=== PATIENT | male | born 1975 | race Caucasian/White ===

== ENCOUNTER 2017-01-07 18:14 | Emergency (ER) | payer OTHER ==
[~2017-01-07] VITALS: Ht 180.3 cm; Wt 99.3 kg
[2017-01-07 18:14] VITALS: TEMP 36.8; Ht 180.3 cm; Wt 99.3 kg
[~2017-01-07 18:14] MED LIST: PANT40TA PO; PARO1TAB27 PO; TOPI100T20 PO; TRAM-10 PO
--- NOTE | 2017-01-07 18:45 | EMERGENCY ROOM VISIT NOTE ---
History Report prepared by Ester: Wale Whitehead Under the Supervision of: Dr. Kareem Mchugh M.D. First contact with patient: 18:19 Chief Complaint: ALCOHOL OVERDOSE Stated Complaint: ALCOHOL History of Present Illness The patient is a 41 year old male who presents to the Emergency Room with an acute alcohol overdose that started earlier today. The patient reportedly showed up to work today and appeared highly intoxicated. The patient became belligerent. Police were called, and he was brought to the ED. The patient is not sure what happened to his face to cause bleeding. Per EMS, the patient fell and hit his face on the concrete when they were still at [employer] where he works. The patient currently complains of a headache. The patient takes Protonix. The patient is not treated for hypertension, hyperlipidemia, or diabetes. He is treated for depression and anxiety. The patient was on Warfarin approximately one month ago for a DVT. The patient uses chewing tobacco. The patient believes that his tetanus shot has been within the past 10 years. He denies daily alcohol use. Per EMS, there were empty vodka bottles in the patient 's car. Source of History: patient, EMS Onset: earlier today Position: other (global) Quality: other (alcohol overdose) Timing: other (acute) Associated Symptoms: + headache Review of Systems See HPI for pertinent positives & negatives. A total of 10 systems reviewed and were otherwise negative. Past Medical & Surgical Medical Problems: (1) Alcohol abuse (2) Alcohol intoxication (3) Renae's esophagus (4) Depression (5) Depression (6) DM type 2 (diabetes mellitus, type 2) (7) Gastroesophageal reflux disease (8) H/O acute pancreatitis (9) History of substance abuse (10) Intentional drug overdose (11) Lumbar degenerative disc disease (12) Mood disorder (13) Mood disorder (14) Panic disorder (15) Pulmonary embolism (16) Suicidal ideation (17) Suicidal ideation (18) Suicide attempt Surgical Problems: (1) H/O esophagogastroduodenoscopy (2) H/o lumbar fusion (3) History of appendectomy (4) History of cholecystectomy (5) Hx of appendectomy (6) Insertion of implantable venous access port Family History Depression FATHER FH: alcohol abuse FATHER FH: cancer FH: heart disease FH: manic depression AUNT Social History Smoking Status: Never Smoker Alcohol Use: occasionally Drug Use: other Marital Status: Housing Status: lives with family Occupation Status: unemployed Current/Historical Medications Scheduled Pantoprazole (Protonix), 40 MG PO DAILY Paroxetine (Paxil), 20 MG PO DAILY Scheduled PRN Tramadol (Ultram), 50 MG PO DAILY PRN for Pain Allergies Coded Allergies: No Known Allergies (Unverified , 07/04/16) Physical Exam Vital Signs Date Time Temp Pulse Resp B/P (MAP) Pulse Ox O2 Delivery O2 Flow Rate FiO2 01/07/17 22:08 88 18 129/85 96 Room Air 01/07/17 20:35 93 18 126/88 98 Room Air 01/07/17 20:31 95 Room Air 01/07/17 19:51 103 01/07/17 19:48 104 18 114/57 94 Room Air 01/07/17 18:14 36.8 121 18 108/81 98 Room Air Physical Exam GENERAL: Patient is in no acute distress. HEENT: Abrasion to the mid upper lip, all teeth seem stable and intact, no laceration, no evidence of facial bony stepoff, moist mucous membranes, chew tobacco present in mouth. NECK: No stridor, no adenopathy, no meningismus, trachea is midline, no posterior C-spine tenderness or obvious stepoff. LUNGS: Clear to auscultation bilaterally, no wheeze, no rhonchi, breath sounds equal. HEART: Tachycardic with a regular rhythm, no murmurs. ABDOMEN: Soft, nontender, bowel sounds positive, no hernias, no peritonitis. EXTREMITIES: Abrasion to the right dorsal hand along the ulnar aspect, this area is tender, no gross deformity, no evidence for trauma to other three extremities. NEUROLOGIC: Slight slur to speech consistent with intoxication, no focal motor deficits, awake and alert. SKIN: No rash, no jaundice, no diaphoresis. Medical Decision & Procedures ER Provider Diagnostic Interpretation: X-ray results as stated below per interpretation by me and the radiologist: Radiology results as stated below per my review and radiologist interpretation: RIGHT HAND 3 VIEWS CLINICAL HISTORY: Fall. Right hand injury. Intoxication. FINDINGS: 3 views of the right hand are obtained. No prior studies are available for comparison at the time of dictation. The skeletal structures are well mineralized. No fracture is seen. The joint spaces of the hand are well-maintained. The overlying soft tissues are within normal limits. IMPRESSION: Unremarkable radiographic assessment of the right hand. Electronically signed by: Kareem Rivas M.D. 01/07/2017 7:13 PM Dictated Date/Time: 01/07/2017 7:[address] SCAN OF THE CERVICAL SPINE CLINICAL HISTORY: Fall. Intoxication. COMPARISON STUDY: CT scan of cervical spine dated 12/28/2011. TECHNIQUE: CT scan of the cervical spine is performed from the skull base to the upper thoracic spine. Images are reviewed in the axial, sagittal, and coronal planes. IV contrast was not administered for this examination. CT DOSE: Reported separately under the concurrently performed CT scan of the brain. FINDINGS: Skeletal structures: The skeletal structures are well mineralized. There is no evidence of fracture or subluxation involving the cervical spine. Vertebral body height and alignment are maintained. There is straightening of the cervical lordosis. The odontoid process and lateral masses are intact. The atlantoaxial articulation is preserved noting minimal productive degenerative change. The spinous processes appear intact. Mild facet arthropathy is seen in the mid to lower cervical region. Intervertebral discs: The disc spaces are well maintained. Central canal: Small posterior disc osteophyte complexes at C4-C5 and C5-C6 may contribute to minimal acquired compromise of the central canal. Soft tissues: The prevertebral and paraspinous soft tissues are within normal limits. Small calcified tonsilliths are incidentally noted. Calvarium: The visualized calvarium at the skull base appears intact. Brain parenchyma: Partially visualized brain parenchyma the skull base is within normal limits. Sinuses and mastoids: Mild to moderate mucosal thickening is seen within the maxillary antra. Mucosal thickening is also seen within the ethmoid and sphenoid sinuses. The mastoid air cells are well pneumatized. Lung apices: Clear as visualized. IMPRESSION: There is no evidence of fracture or subluxation involving the cervical spine. Electronically signed by: Kareem Rivas M.D. 01/07/2017 7:43 PM Dictated Date/Time: 01/07/2017 7:[address] SCAN OF THE BRAIN WITHOUT IV CONTRAST CLINICAL HISTORY: Fall. Intoxication. COMPARISON STUDY: CT of the brain dated 03/22/2015. TECHNIQUE: Unenhanced axial CT scan of the brain is performed from the vertex to the skull base. Automated dose control exposure was utilized. CT DOSE: 1118.70 mGy.cm FINDINGS: Brain parenchyma: The brain parenchyma is normal in appearance. There is no hemorrhage, mass effect, or evidence of acute territorial ischemia by CT criteria. Camacho-white matter is preserved. No extra-axial fluid collection is seen. Ventricles, sulci, cisterns: Normal in configuration. Intracranial vasculature: The visualized intracranial vasculature at the skull base is normal in appearance. Calvarium: There is no depressed calvarial fracture. Sinuses and mastoids: Mild to moderate mucosal thickening is seen within the maxillary antra and ethmoid sinuses. Mild mucosal thickening is present within the right sphenoid sinus. The mastoid air cells are well pneumatized. Orbits: The bony orbits are grossly intact. IMPRESSION: No acute intracranial abnormality. Electronically signed by: Kareem Rivas M.D. 01/07/2017 7:36 PM Dictated Date/Time: 01/07/2017 7:34 PM Laboratory Results 01/07/17 20:22 Red Blood Count 4.87, Mean Corpuscular Volume 92.2, Mean Corpuscular Hemoglobin 33.7, Mean Corpuscular Hemoglobin Concent 36.5, Mean Platelet Volume 9.3, Neutrophils (%) (Auto) 62.5, Lymphocytes (%) (Auto) 26.7, Monocytes (%) (Auto) 5.8, Eosinophils (%) (Auto) 4.1, Basophils (%) (Auto) 0.7, Neutrophils # (Auto) 3.66, Lymphocytes # (Auto) 1.56, Monocytes # (Auto) 0.34, Eosinophils # (Auto) 0.24, Basophils # (Auto) 0.04 01/07/17 18:56 Test 01/07/17 18:56 01/07/17 20:22 Anion Gap 11.0 mmol/L (3-11) Est Creatinine Clear Calc Drug Dose 104.0 ml/min Estimated GFR () 94.8 Estimated GFR (Non- 81.8 BUN/Creatinine Ratio 6.8 (10-20) Calcium Level 8.6 mg/dl (8.5-10.1) Total Bilirubin 0.5 mg/dl (0.2-1) Direct Bilirubin mg/dl (0-0.2) Aspartate Amino Transf (AST/SGOT) U/L (15-37) Alanine Aminotransferase (ALT/SGPT) 45 U/L (12-78) Alkaline Phosphatase 83 U/L (45-117) Total Protein 7.6 gm/dl (6.4-8.2) Albumin 3.4 gm/dl (3.4-5.0) Lipase 96 U/L (73-393) Ethyl Alcohol mg/dL 337.0 mg/dl (0-3) White Blood Count 5.85 K/uL (4.8-10.8) Red Blood Count 4.87 M/uL (4.7-6.1) Hemoglobin 16.4 g/dL (14.0-18.0) Hematocrit 44.9 % (42-52) Mean Corpuscular Volume 92.2 fL (80-100) Mean Corpuscular Hemoglobin 33.7 pg (25-34) Mean Corpuscular Hemoglobin Concent 36.5 g/dl (32-36) Platelet Count 170 K/uL (130-400) Mean Platelet Volume 9.3 fL (7.4-10.4) Neutrophils (%) (Auto) 62.5 % Lymphocytes (%) (Auto) 26.7 % Monocytes (%) (Auto) 5.8 % Eosinophils (%) (Auto) 4.1 % Basophils (%) (Auto) 0.7 % Neutrophils # (Auto) 3.66 K/uL (1.4-6.5) Lymphocytes # (Auto) 1.56 K/uL (1.2-3.4) Monocytes # (Auto) 0.34 K/uL (0.11-0.59) Eosinophils # (Auto) 0.24 K/uL (0-0.5) Basophils # (Auto) 0.04 K/uL (0-0.2) RDW Standard Deviation 40.9 fL (36.4-46.3) RDW Coefficient of Variation 12.1 % (11.5-14.5) Immature Granulocyte % (Auto) 0.2 % Immature Granulocyte # (Auto) 0.01 K/uL (0.00-0.02) Laboratory results reviewed by me. Medications Administered Medications (Trade) Dose Ordered Sig/Carmita Route Start Time Stop Time Status Last Admin Dose Admin Sodium Chloride 500 ml @ 999 mls/hr Q31M STAT IV 01/07/17 20:03 01/07/17 20:33 DC 01/07/17 20:03 999 MLS/HR Sodium Chloride 1,000 ml @ 200 mls/hr Q5H STAT IV 01/07/17 20:03 01/07/17 22:43 DC 01/07/17 20:34 200 MLS/HR Acetaminophen (Tylenol Tab) 1,000 mg NOW STAT PO 01/07/17 20:52 01/07/17 20:53 DC 01/07/17 20:56 1,000 MG Al Hydroxide/Mg Hydroxide (Maalox Susp) 30 ml NOW STAT PO 01/07/17 20:58 01/07/17 20:59 DC 01/07/17 21:05 30 ML Ranitidine HCl (zANTac TAB) 150 mg NOW STAT PO 01/07/17 20:58 01/07/17 20:59 DC 01/07/17 21:05 150 MG ED Course 1919: The patient was evaluated in room C12b. A complete history and physical exam was performed. 2002: NSS 1000 ml @ 200 mls/hr, NSS 500 ml @ 999 mls/hr. 2051: Tylenol 1000 mg PO. 2056: The patient is feeling okay. He will call for a ride home. He notes burning in his stomach consistent with heart burn. 2057: Zantac 150 mg PO, Maalox 30 ml PO. 2146: The patient has found a sober ride. He will be discharged. Medical Decision Differential diagnosis includes facial, C-spine or skull fracture; intracranial bleeding, extremity fracture, alcohol abuse, diabetes, combative behavior. There is no leukocytosis or concerning anemia. No significant electrolyte abnormality or kidney failure. There was no hepatitis or pancreatitis. Brain CT shows no acute bleed or mass effect. C-spine CT shows no acute fracture. By exam, there was no evidence for dental, or for facial fracture. He did have an abrasion to his upper lip. Films of the right hand do not show any evidence for fracture. Alcohol level was elevated at 337. The patient received IV saline, oral Tylenol, oral Zantac and oral Maalox. He received the Zantac and Maalox for stomach upset-he does have a history of heartburn and this discomfort feels similar.. He is doing well. His vital signs have improved since arrival. The patient is in no danger of losing his airway. He is awake and talking, he is cooperative. He was able to contact a friend, he is being discharged. He was told to avoid alcohol in excess. He will watch for any signs of infection over his scrapes and abrasions. Ice for swelling was suggested. Tylenol for pain. Medication Reconciliation: I attest that I have personally reviewed the patient' s current medication list. Blood Pressure Screening: Patient was found to have normal blood pressure on screening and does not require follow-up. Impression Primary Impression: Facial trauma Additional Impressions: Alcohol abuse Contusion of right hand Combative behavior Scribe Attestation The scribe's documentation has been prepared under my direction and personally reviewed by me in its entirety. I confirm that the note above accurately reflects all work, treatment, procedures, and medical decision making performed by me. Departure Information Dispostion Home / Self-Care Referrals Dhiraj Myers D.O. (PCP) Forms HOME CARE DOCUMENTATION FORM, IMPORTANT VISIT INFORMATION Patient Instructions My [facility] Additional Instructions reflux meds for your stomach do not use alcohol in excess watch for infection--redness, drainage or fever tylenol for pain ice to the sore areas--your hand for example lab testing and imaging of the brain and neck were ok today return if worsening Problem Qualifiers
--- NOTE | 2017-01-07 19:15 | DIAGNOSTIC IMAGING REPORT ---
RIGHT HAND 3 VIEWS CLINICAL HISTORY: Fall. Right hand injury. Intoxication. FINDINGS: 3 views of the right hand are obtained. No prior studies are available for comparison at the time of dictation. The skeletal structures are well mineralized. No fracture is seen. The joint spaces of the hand are well-maintained. The overlying soft tissues are within normal limits. IMPRESSION: Unremarkable radiographic assessment of the right hand. Electronically signed by: Kareem Rivas M.D. 01/07/2017 7:13 PM Dictated Date/Time: 01/07/2017 7:12 PM
[2017-01-07 19:35] LABS: BLOOD UREA NITROGEN 8 mg/dl (7-18); BUN/CREATININE RATIO 6.8 (10-20); CALCIUM 8.6 mg/dl (8.5-10.1); CARBON DIOXIDE 23 mmol/L (21-32); CHLORIDE 108 mmol/L (98-107); GLUCOSE 171 mg/dl (70-99); SODIUM 142 mmol/L (136-145)
--- NOTE | 2017-01-07 19:37 | DIAGNOSTIC IMAGING REPORT ---
CT SCAN OF THE BRAIN WITHOUT IV CONTRAST CLINICAL HISTORY: Fall. Intoxication. COMPARISON STUDY: CT of the brain dated 03/22/2015. TECHNIQUE: Unenhanced axial CT scan of the brain is performed from the vertex to the skull base. Automated dose control exposure was utilized. CT DOSE: 1118.70 mGy.cm FINDINGS: Brain parenchyma: The brain parenchyma is normal in appearance. There is no hemorrhage, mass effect, or evidence of acute territorial ischemia by CT criteria. Camacho-white matter is preserved. No extra-axial fluid collection is seen. Ventricles, sulci, cisterns: Normal in configuration. Intracranial vasculature: The visualized intracranial vasculature at the skull base is normal in appearance. Calvarium: There is no depressed calvarial fracture. Sinuses and mastoids: Mild to moderate mucosal thickening is seen within the maxillary antra and ethmoid sinuses. Mild mucosal thickening is present within the right sphenoid sinus. The mastoid air cells are well pneumatized. Orbits: The bony orbits are grossly intact. IMPRESSION: No acute intracranial abnormality. Electronically signed by: Kareem Rivas M.D. 01/07/2017 7:36 PM Dictated Date/Time: 01/07/2017 7:34 PM
--- NOTE | 2017-01-07 19:44 | DIAGNOSTIC IMAGING REPORT ---
CT SCAN OF THE CERVICAL SPINE CLINICAL HISTORY: Fall. Intoxication. COMPARISON STUDY: CT scan of cervical spine dated 12/28/2011. TECHNIQUE: CT scan of the cervical spine is performed from the skull base to the upper thoracic spine. Images are reviewed in the axial, sagittal, and coronal planes. IV contrast was not administered for this examination. CT DOSE: Reported separately under the concurrently performed CT scan of the brain. FINDINGS: Skeletal structures: The skeletal structures are well mineralized. There is no evidence of fracture or subluxation involving the cervical spine. Vertebral body height and alignment are maintained. There is straightening of the cervical lordosis. The odontoid process and lateral masses are intact. The atlantoaxial articulation is preserved noting minimal productive degenerative change. The spinous processes appear intact. Mild facet arthropathy is seen in the mid to lower cervical region. Intervertebral discs: The disc spaces are well maintained. Central canal: Small posterior disc osteophyte complexes at C4-C5 and C5-C6 may contribute to minimal acquired compromise of the central canal. Soft tissues: The prevertebral and paraspinous soft tissues are within normal limits. Small calcified tonsilliths are incidentally noted. Calvarium: The visualized calvarium at the skull base appears intact. Brain parenchyma: Partially visualized brain parenchyma the skull base is within normal limits. Sinuses and mastoids: Mild to moderate mucosal thickening is seen within the maxillary antra. Mucosal thickening is also seen within the ethmoid and sphenoid sinuses. The mastoid air cells are well pneumatized. Lung apices: Clear as visualized. IMPRESSION: There is no evidence of fracture or subluxation involving the cervical spine. Electronically signed by: Kareem Rivas M.D. 01/07/2017 7:43 PM Dictated Date/Time: 01/07/2017 7:33 PM
[2017-01-07] MEDS ORDERED: SODIUM CHLORIDE 0.9% 500ML 500 ML IV STA (20:03)
[2017-01-07] MEDS ORDERED: SODIUM CHLORIDE 0.9% 1000ML 1,000 ML IV STA (20:03)
[2017-01-07 20:30] LABS: BASO % 0.7 %; BASO ABS # 0.04 K/uL (0-0.2); COMPLETE YES; EOS % 4.1 %; HEMATOCRIT 44.9 % (42-52); IG% 0.2 %; LYMPH % 26.7 %; LYMPH ABS # 1.56 K/uL (1.2-3.4); MEAN CELL VOLUME 92.2 fL (80-100); MEAN CORPUSCULAR HEMOGLOBIN 33.7 pg (25-34); MEAN CORPUSCULAR HGB CONC 36.5 g/dl (32-36); MEAN PLATELET VOLUME 9.3 fL (7.4-10.4); MONO % 5.8 %; NEUT % 62.5 %; PLATELET COUNT 170 K/uL (130-400); RED BLOOD COUNT 4.87 M/uL (4.7-6.1); WHITE BLOOD COUNT 5.85 K/uL (4.8-10.8)
[2017-01-07 20:31] VITALS: O2SAT 95
[2017-01-07 20:39] LABS: ALKALINE PHOSPHATASE 83 U/L (45-117); ALT/SGPT 45 U/L (12-78)
[2017-01-07] MEDS ORDERED: ACETAMINOPHEN 500 MG TAB PO STA (20:52)
[2017-01-07] MEDS ORDERED: RANITIDINE HCL 150 MG TAB PO STA (20:58)
[2017-01-07] MEDS ORDERED: ALUMINUM/MAGNESIUM SUSP 30 ML UDC PO STA (20:58)
[2017-01-07 22:08] VITALS: BP 129/85; PULSE 88; O2SAT 96
[2017-01-27] MEDS ORDERED: MULTTAB PO (14:00)
[2017-01-27] MEDS ORDERED: THM100 PO (14:00)
[2017-01-27] MEDS ORDERED: CRFUDL PO (14:00)
== END 2017-01-07 22:10 | disposition home or self-care (01) ==
LOC: EDBD 18:14 → C.EDC 18:15
DX: S09.93XA Unspecified injury of face, initial encounter (principal); F10.10 Alcohol abuse, uncomplicated; S60.221A Contusion of right hand, initial encounter; R46.2 Strange and inexplicable behavior; X58.XXXA Exposure to other specified factors, initial encounter; K22.70 Barrett's esophagus without dysplasia; F33.41 Major depressive disorder, recurrent, in partial remission; E11.9 Type 2 diabetes mellitus without complications; K21.9 Gastro-esophageal reflux disease without esophagitis; Z82.49 Family history of ischemic heart disease and other diseases of the circulatory system

== ENCOUNTER 2017-01-15 12:11 | Inpatient (IN) | payer OTHER ==
[~2017-01-15] VITALS: Ht 182.9 cm; Wt 103.4 kg
[~2017-01-15 12:11] MED LIST changes: -TOPI100T20 PO
[2017-01-15] MEDS ORDERED: FENTANYL CITRATE INJ 50 MCG/1 ML 2 ML VIAL IV STA ×2 (12:28→13:12)
[2017-01-15] MEDS ORDERED: LORAZEPAM 2 MG/ML 1 ML VIAL IV STA (12:28)
[2017-01-15] MEDS ORDERED: SODIUM CHLORIDE 0.9% 1000ML 2,000 ML IV STA (12:28)
[2017-01-15] MEDS ORDERED: MULTI-VITAMIN INFUSION INJ 10 ML, THIAMINE HCL INJ 100 MG, FoLIC ACID INJ 1 MG in SODIU... IV ONE (12:30)
[2017-01-15 12:49] LABS: BASO % 0.4 %; BASO ABS # 0.03 K/uL (0-0.2); COMPLETE YES; EOS % 2.1 %; HEMATOCRIT 49.3 % (42-52); IG% 0.1 %; LYMPH % 11.6 %; LYMPH ABS # 0.81 K/uL (1.2-3.4); MEAN CELL VOLUME 92.1 fL (80-100); MEAN CORPUSCULAR HEMOGLOBIN 32.3 pg (25-34); MEAN CORPUSCULAR HGB CONC 35.1 g/dl (32-36); MONO % 9.2 %; NEUT % 76.6 %; PLATELET COUNT 159 K/uL (130-400); RED BLOOD COUNT 5.35 M/uL (4.7-6.1); WHITE BLOOD COUNT 6.99 K/uL (4.8-10.8)
[2017-01-15 13:06] LABS: BUN/CREATININE RATIO 8.2 (10-20); CALCIUM 9.2 mg/dl (8.5-10.1); CREATININE 1.1 mg/dl (0.60-1.40); MAGNESIUM 2.2 mg/dl (1.8-2.4); POTASSIUM 3.9 mmol/L (3.5-5.1)
--- NOTE | 2017-01-15 13:15 | EMERGENCY ROOM VISIT NOTE ---
History Report prepared by Ester: Quin Acevedo Under the Supervision of: Dr. Jose Clemente M.D. First contact with patient: 12:24 Chief Complaint: ABDOMINAL PAIN Stated Complaint: STOMACH/LOWER BACK PAIN History of Present Illness The patient is a 41 year old male who presents to the Emergency Room with complaints of epigastric abdominal pain starting yesterday and worsening last night. He reports pain radiation to the back. He denies taking any pain medications. He started having diaphoresis last night. He also complains of nausea and vomiting. He reports shakiness. He has a history of alcohol abuse. His last alcoholic drink was about 4-5 days ago. He has a history of shakiness occurring when he stops drinking for a few days. He denies any history of seizures. He has a history of pancreatitis and reports similar symptoms today. The patient denies seizure-like activity, hallucinations, loss of consciousness , lower extremity swelling, or any other complaints. Source of History: patient Onset: yesterday Position: abdomen (epigastric) Timing: worsening Associated Symptoms: + diaphoresis, + nausea, + vomiting, No LOC Review of Systems See HPI for pertinent positives & negatives. A total of 10 systems reviewed and were otherwise negative. Past Medical & Surgical Medical Problems: (1) Alcohol abuse (2) Alcohol intoxication (3) Renae's esophagus (4) Depression (5) Depression (6) DM type 2 (diabetes mellitus, type 2) (7) Gastroesophageal reflux disease (8) H/O acute pancreatitis (9) History of substance abuse (10) Intentional drug overdose (11) Lumbar degenerative disc disease (12) Mood disorder (13) Mood disorder (14) Panic disorder (15) Pulmonary embolism (16) Suicidal ideation (17) Suicidal ideation (18) Suicide attempt Surgical Problems: (1) H/O esophagogastroduodenoscopy (2) H/o lumbar fusion (3) History of appendectomy (4) History of cholecystectomy (5) Hx of appendectomy (6) Insertion of implantable venous access port Family History Depression FATHER FH: alcohol abuse FATHER FH: cancer FH: heart disease FH: manic depression AUNT Social History Smoking Status: Never Smoker Alcohol Use: occasionally Drug Use: other Marital Status: Housing Status: lives with family Occupation Status: unemployed Current/Historical Medications Scheduled Pantoprazole (Protonix), 40 MG PO DAILY Paroxetine (Paxil), 20 MG PO DAILY Scheduled PRN Tramadol (Ultram), 50 MG PO DAILY PRN for Pain Allergies Coded Allergies: NO KNOWN DRUG ALLERGIES (Verified Allergy, Unknown, NONE, 01/15/17) Physical Exam Vital Signs Date Time Temp Pulse Resp B/P (MAP) Pulse Ox O2 Delivery O2 Flow Rate FiO2 01/15/17 15:29 82 20 150/92 97 01/15/17 15:10 99 Room Air 01/15/17 14:18 101 20 131/84 99 Room Air 01/15/17 13:25 97 20 143/85 100 Room Air 01/15/17 12:16 36.7 102 18 153/95 97 Room Air Physical Exam GENERAL: Patient is ill-appearing and in moderate distress. HEENT: No acute trauma, normocephalic atraumatic, mucous membranes moist, no nasal congestion, no scleral icterus. NECK: No stridor, no adenopathy, no meningismus, trachea is midline. LUNGS: No dyspnea. Clear to auscultation and equal bilaterally. No wheeze, no rhonchi. HEART: Tachycardic rate and regular rhythm. No murmurs, rubs, gallops appreciated. ABDOMEN: Soft, moderate epigastric tenderness to palpation, bowel sounds positive, no masses appreciated, no peritonitis. BACK: No midline tenderness, no CVA tenderness EXTREMITIES: Normal motion all extremities, no cyanosis, no edema. NEUROLOGIC: Severely tremulous. Alert and oriented, no acute motor or sensory deficits, no focal weakness, cranial nerves grossly intact. SKIN: Diaphoretic. No rash, no jaundice. Medical Decision & Procedures ER Provider Diagnostic Interpretation: CT results as stated below per interpretation by me and the radiologist: CT ABD/PELVIS IV CONTRAST ONLY CLINICAL HISTORY: Persistent right upper quadrant abdominal pain, radiating to the back. COMPARISON STUDY: 03/19/2015 TECHNIQUE: Following the IV administration of 94 mL of Optiray-320, CT scan of the abdomen and pelvis was performed from the lung bases to the proximal femurs. Images are reviewed in the axial, sagittal, and coronal planes. IV contrast was administered without complication. CT DOSE: 675.85 mGy.cm FINDINGS: Lower chest: The heart is normal in size and configuration, without pericardial effusion. The lung bases and pleural spaces are clear. Liver: There is hepatic steatosis. No focal masses are visualized. Gallbladder: Surgically absent Spleen: Normal in size and attenuation. Pancreas: There is infiltration of the fat surrounding the pancreatic head consistent with acute pancreatitis. No peripancreatic fluid collections are visualized. Adrenal glands: Unremarkable. Kidneys: There is symmetric renal cortical enhancement. The kidneys are normal in size without hydronephrosis. Bowel: There is bowel wall thickening of the duodenum, likely secondary to adjacent pancreatitis. There are no transition zones indicate bowel obstruction. There are no findings to indicate acute appendicitis. There is no evidence of acute diverticulitis. Peritoneum: There is no intraperitoneal free air or abdominal ascites. Vasculature: There is no evidence of abdominal aortic aneurysm. The portal vein appears patent. Numerous omental collateral vessels are again visualized. Adenopathy: None. Pelvic viscera: The bladder, and pelvic viscera are unremarkable. Skeletal structures: There are postsurgical changes present within the lumbar spine. IMPRESSION: 1. CT findings indicative of acute pancreatitis. 2. No evidence of bowel obstruction. No evidence of free air. 3. Hepatic steatosis. 4. Surgically absent gallbladder Electronically signed by: Cheng Diaz M.D. 01/15/2017 2:08 PM Dictated Date/Time: 01/15/2017 2:03 PM Laboratory Results 01/15/17 12:35 Red Blood Count 5.35, Mean Corpuscular Volume 92.1, Mean Corpuscular Hemoglobin 32.3, Mean Corpuscular Hemoglobin Concent 35.1, Mean Platelet Volume 9.0, Neutrophils (%) (Auto) 76.6, Lymphocytes (%) (Auto) 11.6, Monocytes (%) (Auto) 9.2, Eosinophils (%) (Auto) 2.1, Basophils (%) (Auto) 0.4, Neutrophils # (Auto) 5.35, Lymphocytes # (Auto) 0.81, Monocytes # (Auto) 0.64, Eosinophils # (Auto) 0.15, Basophils # (Auto) 0.03 01/15/17 12:35 Test 01/15/17 12:35 01/15/17 12:41 01/15/17 14:49 01/15/17 15:30 White Blood Count 6.99 K/uL (4.8-10.8) Red Blood Count 5.35 M/uL (4.7-6.1) Hemoglobin 17.3 g/dL (14.0-18.0) Hematocrit 49.3 % (42-52) Mean Corpuscular Volume 92.1 fL (80-100) Mean Corpuscular Hemoglobin 32.3 pg (25-34) Mean Corpuscular Hemoglobin Concent 35.1 g/dl (32-36) Platelet Count 159 K/uL (130-400) Mean Platelet Volume 9.0 fL (7.4-10.4) Neutrophils (%) (Auto) 76.6 % Lymphocytes (%) (Auto) 11.6 % Monocytes (%) (Auto) 9.2 % Eosinophils (%) (Auto) 2.1 % Basophils (%) (Auto) 0.4 % Neutrophils # (Auto) 5.35 K/uL (1.4-6.5) Lymphocytes # (Auto) 0.81 K/uL (1.2-3.4) Monocytes # (Auto) 0.64 K/uL (0.11-0.59) Eosinophils # (Auto) 0.15 K/uL (0-0.5) Basophils # (Auto) 0.03 K/uL (0-0.2) RDW Standard Deviation 40.9 fL (36.4-46.3) RDW Coefficient of Variation 12.2 % (11.5-14.5) Immature Granulocyte % (Auto) 0.1 % Immature Granulocyte # (Auto) 0.01 K/uL (0.00-0.02) Anion Gap 11.0 mmol/L (3-11) Est Creatinine Clear Calc Drug Dose 106.2 ml/min Estimated GFR () 94.8 Estimated GFR (Non- 81.8 BUN/Creatinine Ratio 8.2 (10-20) Calcium Level 9.2 mg/dl (8.5-10.1) Magnesium Level 2.2 mg/dl (1.8-2.4) Total Bilirubin 1.3 mg/dl (0.2-1) Direct Bilirubin 0.3 mg/dl (0-0.2) Aspartate Amino Transf (AST/SGOT) 53 U/L (15-37) Alanine Aminotransferase (ALT/SGPT) 58 U/L (12-78) Alkaline Phosphatase 115 U/L (45-117) Total Creatine Kinase 359 U/L (39-308) Total Protein 8.4 gm/dl (6.4-8.2) Albumin 3.8 gm/dl (3.4-5.0) Amylase Level 50 U/L (25-115) Lipase 359 U/L (73-393) Bedside Lactic Acid Venous 1.50 mmol/L (0.90-1.70) Urine Color YELLOW Urine Appearance CLEAR (CLEAR) Urine pH 5.0 (4.5-7.5) Urine Specific [place] > 1.045 (1.000-1.030) Urine Protein NEG (NEG) Urine Glucose (UA) 2+ (NEG) Urine Ketones 1+ (NEG) Urine Occult Blood NEG (NEG) Urine Nitrite NEG (NEG) Urine Bilirubin NEG (NEG) Urine Urobilinogen NEG (NEG) Urine Leukocyte Esterase NEG (NEG) Urine WBC (Auto) 0 /hpf (0-5) Urine RBC (Auto) 0-4 /hpf (0-4) Urine Hyaline Casts (Auto) 1-5 /lpf (0-5) Urine Epithelial Cells (Auto) 0-5 /lpf (0-5) Urine Bacteria (Auto) NEG (NEG) Laboratory results as reviewed by me. Medications Administered Medications (Trade) Dose Ordered Sig/Carmita Route Start Time Stop Time Status Last Admin Dose Admin Fentanyl Citrate (Fentanyl Inj) 100 mcg NOW STAT IV 01/15/17 12:28 01/15/17 12:30 DC 01/15/17 13:24 100 MCG Lorazepam (Ativan Inj) 1 mg NOW STAT IV 01/15/17 12:28 01/15/17 12:30 DC 01/15/17 12:43 1 MG Sodium Chloride 2,000 ml @ 999 mls/hr Q2H1M STAT IV 01/15/17 12:28 01/15/17 14:28 DC 01/15/17 12:44 999 MLS/HR Multivitamins 10 ml/Thiamine HCl 100 mg/Folic Acid 1 mg/Sodium Chloride 1,011.2 ml @ 500 mls/ hr Q2H2M ONCE IV 01/15/17 12:30 01/15/17 14:31 DC 01/15/17 12:44 500 MLS/HR Fentanyl Citrate (Fentanyl Inj) 100 mcg NOW STAT IV 01/15/17 13:12 01/15/17 13:13 DC 01/15/17 14:17 100 MCG Ondansetron HCl (Zofran Inj) 4 mg Q6H PRN IV 01/15/17 15:00 02/14/17 14:59 01/15/17 15:26 4 MG Hydromorphone HCl (Dilaudid Inj) 1 mg STK-MED ONCE .ROUTE 01/15/17 15:20 01/15/17 15:21 DC 01/15/17 15:29 1 MG ED Course 1224: The patient was evaluated in room C11B. A complete history and physical exam was performed. 1228: Sodium Chloride 2000 ml @ 999 mls/hr IV, Ativan Inj 1 mg IV, Fentanyl Inj 100 mcg IV 1230: Multivitamins 10 ml/Thiamine HCl 100 mg/Folic Acid 1 mg/Sodium Chloride 1, 011.2 ml @ 500 mls/hr IV 1312: The patient continues to complain of pain. Fentanyl Inj 100 mcg IV 1335: I reevaluated the patient and he is still having pain. He is agreeable to a CT scan. 1412: Upon reevaluation, the patient is complaining of pain. Discussed results and treatment plan with the patient. He verbalized understanding and agreement with the treatment plan. I discussed the patient's case with Dr. Lind, from [facility]. The patient will be evaluated for further management. Medical Decision Differential: Alcohol Withdrawal, Delirium Tremens, Cholecystitis, Gallbladder disfunction, Hepatic Disfunction, Gastritis/PUD, Pancreatitis, ACS, Aortic Pathology, amongst other pathologies entertained. Medication Reconciliation: I attest that I have personally reviewed the patient 's current medication list. Blood pressure screening: Patient was found to have an elevated blood pressure and was referred to the hospitalist for recheck and further treatment. 41 yr old alcoholic male well known to department with long history of issues with pancreatitis. Last drink 4 days ago and quite tremulous currently which improved with ativan IV. Fentanyl multiple rounds for epigastric pain control. CT consistent with pancreatitis. No other acute findings, and not surgical abdomen at this time. Given fluids and Banana Bag. Stable but clearly unable to tolerate outpatient therapy. 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 Consults Time Called: 1413 Consulting Physician: Dr. Lind, from [facility] Returned Call: 1413 I discussed the patient's case with Dr. Lind, from [facility]. Impression Primary Impression: Acute pancreatitis Additional Impression: Alcohol withdrawal Scribe Attestation The scribe's documentation has been prepared under my direction and personally reviewed by me in its entirety. I confirm that the note above accurately reflects all work, treatment, procedures, and medical decision making performed by me. Departure Information Dispostion Being Evaluated By Hospitalist Referrals No Doctor, Assigned (PCP) Patient Instructions My [facility] Problem Qualifiers
[2017-01-15] MEDS ORDERED: OPTIRAY 320 IV PRN (13:45)
--- NOTE | 2017-01-15 14:09 | DIAGNOSTIC IMAGING REPORT ---
CT ABD/PELVIS IV CONTRAST ONLY CLINICAL HISTORY: Persistent right upper quadrant abdominal pain, radiating to the back. COMPARISON STUDY: 03/19/2015 TECHNIQUE: Following the IV administration of 94 mL of Optiray-320, CT scan of the abdomen and pelvis was performed from the lung bases to the proximal femurs. Images are reviewed in the axial, sagittal, and coronal planes. IV contrast was administered without complication. CT DOSE: 675.85 mGy.cm FINDINGS: Lower chest: The heart is normal in size and configuration, without pericardial effusion. The lung bases and pleural spaces are clear. Liver: There is hepatic steatosis. No focal masses are visualized. Gallbladder: Surgically absent Spleen: Normal in size and attenuation. Pancreas: There is infiltration of the fat surrounding the pancreatic head consistent with acute pancreatitis. No peripancreatic fluid collections are visualized. Adrenal glands: Unremarkable. Kidneys: There is symmetric renal cortical enhancement. The kidneys are normal in size without hydronephrosis. Bowel: There is bowel wall thickening of the duodenum, likely secondary to adjacent pancreatitis. There are no transition zones indicate bowel obstruction. There are no findings to indicate acute appendicitis. There is no evidence of acute diverticulitis. Peritoneum: There is no intraperitoneal free air or abdominal ascites. Vasculature: There is no evidence of abdominal aortic aneurysm. The portal vein appears patent. Numerous omental collateral vessels are again visualized. Adenopathy: None. Pelvic viscera: The bladder, and pelvic viscera are unremarkable. Skeletal structures: There are postsurgical changes present within the lumbar spine. IMPRESSION: 1. CT findings indicative of acute pancreatitis. 2. No evidence of bowel obstruction. No evidence of free air. 3. Hepatic steatosis. 4. Surgically absent gallbladder Electronically signed by: Cheng Diaz M.D. 01/15/2017 2:08 PM Dictated Date/Time: 01/15/2017 2:03 PM
[2017-01-15] MEDS ORDERED: DEXTROSE 50% 50 ML SYR IV PRN (15:00)
[2017-01-15] MEDS ORDERED: GLUCAGON FOR INJ 1 MG VIAL SQ PRN (15:00)
[2017-01-15] MEDS ORDERED: ACETAMINOPHEN 325 MG TAB PO PRN (15:00)
[2017-01-15] MEDS ORDERED: GLUCOSE 40% GEL 15 GM TUBE PO PRN (15:00)
[2017-01-15] MEDS ORDERED: GLUCOSE 10 TABS/TUBE PO PRN (15:00)
[2017-01-15] MEDS ORDERED: HYDROmorphone INJ 1 MG/ML SYR IV PRN ×5 (15:00→20:45)
[2017-01-15] MEDS ORDERED: HYDROmorphone INJ 2 MG/ML SYR/VIAL IV PRN ×4 (15:00→20:45)
[2017-01-15] MEDS ORDERED: CHLORDIAZEPOXIDE 25 MG CAP PO SCH (15:00)
[2017-01-15] MEDS ORDERED: PHARMACY GLYCEMIC MGMT CONSULT PRN (15:04)
--- NOTE | 2017-01-15 15:04 | History and Physical ---
History & Physical Date & Time of Service: Jan 15, 2017 at 15:03 Chief Complaint: Stomach/Lower Back Pain Primary Care Physician: Dhiraj Myers D.O. History of Present Illness Source: patient, hospital records 41 year old male with history of Alcoholism, Pancreatitis, DM, Bipolar Disorder , GERD presenting with abdominal pain starting yesterday. Follows with Dr. Myers for Primary Care. Patient was at his usual state of health until last evening when he started to have right upper quadrant pain radiating to the back, "pressure", severe associated with diaphoresis and nausea. The pain persisted through the night prompting consult to the ER. No fever/chills, chest pain, dyspnea, palpitations, headache. Last drink of beer last week. Lipase Normal but CT abdomen:(+)inflammation at the head of the pancreas On exam, patient seen resting in bed, still has abdominal pain but no active nausea. (+) mild tremors, anxiety; denies hallucinations No other symptoms Past Medical/Surgical History Medical Problems: (1) Alcohol abuse Status: Chronic (2) Alcohol intoxication Status: Resolved (3) Renae's esophagus Permanent Comment: per EGD 11/23/09 Status: Chronic (4) Depression Status: Chronic (5) Depression Status: Chronic (6) DM type 2 (diabetes mellitus, type 2) Status: Chronic (7) Gastroesophageal reflux disease Status: Chronic (8) H/O acute pancreatitis Permanent Comment: recurrent Status: Chronic (9) History of substance abuse Status: Chronic (10) Intentional drug overdose Status: Resolved (11) Lumbar degenerative disc disease Status: Chronic (12) Mood disorder Status: Chronic (13) Mood disorder Status: Chronic (14) Panic disorder Status: Chronic (15) Pulmonary embolism Status: Resolved (16) Suicidal ideation Status: Chronic (17) Suicidal ideation Status: Resolved (18) Suicide attempt Status: Resolved Surgical Problems: (1) H/O esophagogastroduodenoscopy Permanent Comment: EGD 11/23/2009- mild gastritis, suspicious for gastroparesis, Z-line irregular EUS 02/04/2010- mild chronic pancreatitis, pronounced cholesterolosis of gallbladder, no biliary dilation or stones, probable gastroparesis EGD 10/31/2014- gastritis Status: Chronic (2) H/o lumbar fusion Status: Chronic (3) History of appendectomy Permanent Comment: 1985 Status: Chronic (4) History of cholecystectomy Permanent Comment: lap cholecystectomy Dr. Martinez 04/02/10 Status: Chronic (5) Hx of appendectomy Status: Resolved (6) Insertion of implantable venous access port Permanent Comment: Dr. Cueto [facility] 03/07/10 Status: Chronic Family History Depression FATHER FH: alcohol abuse FATHER FH: cancer FH: heart disease FH: manic depression AUNT Social History Smoking Status: Never Smoker Alcohol Use: occasionally Drug Use: none, other Marital Status: Occupational Status: unemployed Immunizations History of Influenza Vaccine: No History of Tetanus Vaccine?: Yes Tetanus Immunization Date: Jun 23, 2010 History of Pneumococcal: No History of Hepatitis B Vaccine: No Multi-Drug Resistant Organisms History of MDRO: No Allergies Coded Allergies: NO KNOWN DRUG ALLERGIES (Verified Allergy, Unknown, NONE, 01/15/17) Home Medications Scheduled Pantoprazole (Protonix), 40 MG PO DAILY Paroxetine (Paxil), 20 MG PO DAILY Scheduled PRN Tramadol (Ultram), 50 MG PO DAILY PRN for Pain Review of Systems Constitutional- no fever; no weight loss Eyes- no acute visual changes ENT- no sinus drainage; no pharyngitis Pulmonary- no cough, no wheezing, no shortness of breath Cardiac- no chest pain, no palpitations, no orthopnea, no dependent edema GI- (+) as noted above - no dysuria, no hematuria Musculoskeletal- no arthralgias, no myalgias Derm- no rashes, no new skin lesions, no changing skin lesions Hematologic- no unusual bruising, no unusual bleeding Lymphatics- no adenopathy Endocrine- no polyuria or polydipsia; no heat or cold intolerance Neuro- no headaches, no focal neurologic symptoms Psych- (+) anxiety, no depression Physical Exam Vital Signs Date Time Temp Pulse Resp B/P (MAP) Pulse Ox O2 Delivery O2 Flow Rate FiO2 01/15/17 14:18 101 20 131/84 99 Room Air 01/15/17 13:25 97 20 143/85 100 Room Air 01/15/17 12:16 36.7 102 18 153/95 97 Room Air General Appearance: WD/WN, no apparent distress Head: normocephalic, atraumatic Eyes: normal inspection, EOMI, sclerae normal ENT: normal ENT inspection, TMs normal, pharynx normal Neck: supple, no adenopathy, thyroid normal, no JVD, trachea midline Respiratory/Chest: chest non-tender, lungs clear, normal breath sounds, no respiratory distress, no accessory muscle use Cardiovascular: regular rate, rhythm, no edema, no JVD, no murmur Abdomen/GI: normal bowel sounds, soft, + tenderness ((+) moderate tenderness to upper quadrants) Back: normal inspection, no CVA tenderness Extremities/Musculoskelatal: normal inspection, no calf tenderness, no pedal edema Neurologic/Psych: electrician helper powerhouse II-XII nml as tested, no motor/sensory deficits, alert, normal mood/affect, oriented x 3 Skin: normal color, warm/dry, no rash Lymphatic: no adenopathy Diagnostics Laboratory Results Results Past 24 Hours Test 01/15/17 12:35 01/15/17 12:41 01/15/17 14:49 Range/Units White Blood Count 6.99 4.8-10.8 K/uL Red Blood Count 5.35 4.7-6.1 M/uL Hemoglobin 17.3 14.0-18.0 g/dL Hematocrit 49.3 42-52 % Mean Corpuscular Volume 92.1 80-100 fL Mean Corpuscular Hemoglobin 32.3 25-34 pg Mean Corpuscular Hemoglobin Concent 35.1 32-36 g/dl Platelet Count 159 130-400 K/uL Mean Platelet Volume 9.0 7.4-10.4 fL Neutrophils (%) (Auto) 76.6 % Lymphocytes (%) (Auto) 11.6 % Monocytes (%) (Auto) 9.2 % Eosinophils (%) (Auto) 2.1 % Basophils (%) (Auto) 0.4 % Neutrophils # (Auto) 5.35 1.4-6.5 K/uL Lymphocytes # (Auto) 0.81 1.2-3.4 K/uL Monocytes # (Auto) 0.64 0.11-0.59 K/uL Eosinophils # (Auto) 0.15 0-0.5 K/uL Basophils # (Auto) 0.03 0-0.2 K/uL RDW Standard Deviation 40.9 36.4-46.3 fL RDW Coefficient of Variation 12.2 11.5-14.5 % Immature Granulocyte % (Auto) 0.1 % Immature Granulocyte # (Auto) 0.01 0.00-0.02 K/uL Sodium Level 137 136-145 mmol/L Potassium Level 3.9 3.5-5.1 mmol/L Chloride Level 100 98-107 mmol/L Carbon Dioxide Level 26 21-32 mmol/L Anion Gap 11.0 3-11 mmol/L Blood Urea Nitrogen 9 7-18 mg/dl Creatinine 1.10 0.60-1.40 mg/dl Est Creatinine Clear Calc Drug Dose 106.2 ml/min Estimated GFR () 94.8 Estimated GFR (Non- 81.8 BUN/Creatinine Ratio 8.2 10-20 Random Glucose 195 70-99 mg/dl Calcium Level 9.2 8.5-10.1 mg/dl Magnesium Level 2.2 1.8-2.4 mg/dl Total Bilirubin 1.3 0.2-1 mg/dl Direct Bilirubin 0.3 0-0.2 mg/dl Aspartate Amino Transf (AST/SGOT) 53 15-37 U/L Alanine Aminotransferase (ALT/SGPT) 58 12-78 U/L Alkaline Phosphatase 115 45-117 U/L Total Creatine Kinase 359 39-308 U/L Total Protein 8.4 6.4-8.2 gm/dl Albumin 3.8 3.4-5.0 gm/dl Amylase Level 50 25-115 U/L Lipase 359 73-393 U/L Bedside Lactic Acid Venous 1.50 0.90-1.70 mmol/L Diagnostic Radiology CT abdomen 1. CT findings indicative of acute pancreatitis. 2. No evidence of bowel obstruction. No evidence of free air. 3. Hepatic steatosis. 4. Surgically absent gallbladder Impression Assessment and Plan 41 year old male with history of Alcoholism, Pancreatitis, DM, Bipolar Disorder , GERD presenting with abdominal pain starting yesterday. ACUTE PANCREATITIS LIKELY FROM ALCOHOL - NPO except meds 2 L IV NSS given at the ER start Lactated Ringers at 200cc/hr PRN Dilaudid monitor electrolytes, lipase - will consult GI ALCOHOLISM POSSIBLE ALCOHOL WITHDRAWAL - alcohol withdrawal protocol including Librium taper and PRN ativan HISTORY OF ANXIETY, BIPOLAR Paroxetine GERD Protonix IV DM 2 ISS Pharm consulted DVT PROPHYLAXIS SCDs for now FULL CODE DISPOSITION pending VTE Prophylaxis VTE Risk Assessment Done? Y/N: Yes Risk Level: Moderate
[2017-01-15 15:10] VITALS: O2SAT 99; Ht 182.9 cm; Wt 103.4 kg
[2017-01-15] MEDS ORDERED: HYDROmorphone INJ 1 MG/ML SYR ONE (15:20)
--- NOTE | 2017-01-15 15:20 | Pharmacy Progress Note ---
Glycemic Control Intl Consult Date of Service Jan 15, 2017. Scope Glycemic Pharmacist consulted by Dr Lind on 01/15/17 for glycemic control and to write orders per [facility] inpatient glycemic control protocol Objective Weight (Kilograms): 100.300 Accuchecks BSG (last 24hrs): Test 01/15/17 12:35 Random Glucose 195 mg/dl (70-99) Laboratory Data (last 24hrs) Test 01/15/17 12:35 Anion Gap 11.0 mmol/L BUN/Creatinine Ratio 8.2 Blood Urea Nitrogen 9 mg/dl Creatinine 1.10 mg/dl Potassium Level 3.9 mmol/L Sodium Level 137 mmol/L White Blood Count 6.99 K/uL Red Blood Count 5.35 M/uL Hemoglobin 17.3 g/dL Hematocrit 49.3 % Mean Corpuscular Volume 92.1 fL Mean Corpuscular Hemoglobin 32.3 pg Mean Corpuscular Hemoglobin Concent 35.1 g/dl Platelet Count 159 K/uL Mean Platelet Volume 9.0 fL Neutrophils (%) (Auto) 76.6 % Lymphocytes (%) (Auto) 11.6 % Monocytes (%) (Auto) 9.2 % Eosinophils (%) (Auto) 2.1 % Basophils (%) (Auto) 0.4 % Neutrophils # (Auto) 5.35 K/uL Lymphocytes # (Auto) 0.81 K/uL Monocytes # (Auto) 0.64 K/uL Eosinophils # (Auto) 0.15 K/uL Basophils # (Auto) 0.03 K/uL Recent Pertinent Medications Outpatient Anti-diabetic Regimen: * none * A1c = 9.2 % 06/2016 (outdated) The patient is currently receiving: * Basal insulin: * none at this time * Bolus Insulin: * NovoLog SQ AC/HS - Goal Range: Low 140 mg/dL - High 180 mg/dL - Correction Factor: 25 mg/dL/unit - Carb ratio of 1 unit per 20 grams CHO consumed Risk Factors for Insulin Resistance: * IVF: LR * Diet: NPO Assessment & Plan ASSESSMENT: * ADA & AACE recommend a goal blood sugar range 140-180 mg/dl for the majority of critically ill & non-critically ill patients. However, more stringent targets may be selected in individual cases. Lower goal range used for non- elderly patient. * 41 y/o who does not take any diabetic medications as an outpatient, however last A1c, though from 2016, is slight elevated indicative of diabetes. * Will begin DM management as inpatient conservatively (forgo Lantus and prandial insulin since NPO) * Discharge recommendations will be need assessed as well as updated A1c PLAN FOR INPATIENT GLYCEMIC CONTROL: * Basal insulin: * Forgo at this time * Bolus insulin: * NovoLog SQ AC and HS, or q6H if NPO - CF: 30mg/dL/unit (based on weight and a stress of 1-2) - CR: forgo - Goal: 100-140mg/dL * A1c - ordered with AM labs on 01/16 * Please note that the plan above was derived based on current level of insulin resistance and hospital stress. These recommendations are appropriate for inpatient admission only. Plan of care upon discharge will need to be reassessed to avoid potential outpatient hypo/hyperglycemia. Thank you.
[2017-01-15] MEDS: ONDANSETRON INJ 2 MG/ML 2 ML VIAL IV PRN (15:26)
[2017-01-15 15:45] LABS: URINE APPEARANCE CLEAR (CLEAR); URINE BILIRUBIN NEG (NEG); URINE COLOR YELLOW; URINE EPITHELIAL CELL AUTO 0-5 /lpf (0-5); URINE NITRITE NEG (NEG); URINE SPECIFIC GRAVITY > 1.045 (1.000-1.030); UROBILINOGEN NEG (NEG); ZZUR CULT IF INDIC CLEAN CATCH NO
[2017-01-15 15:57] LABS: MANUAL MICROSCOPIC REQUIRED? NO; REVIEW REQ? NO
[2017-01-15] MEDS: INSULIN ASPART 100 UNITS/ML 3 ML PEN SC SCH ×2 (16:00→21:07)
[2017-01-15 16:45] VITALS: BP 165/88; PULSE 109; TEMP 37.2; O2SAT 95
[2017-01-15] MEDS: LORAZEPAM 2 MG/ML 1 ML VIAL IV PRN ×2 (17:24→20:50)
[2017-01-15] MEDS: LACTATED RINGER'S 1000ML 1,000 ML IV SCH ×3 (17:28→21:05)
[2017-01-15] MEDS: CHLORDIAZEPOXIDE 50MG 1ST DOSE PO SCH ×2 (17:55→23:26)
[2017-01-15] MEDS ORDERED: PANTOprazole INJ 40 MG in SYRINGE 0 ML IV ONE (18:00)
[2017-01-15 19:33] VITALS: BP 136/81; PULSE 91; TEMP 36.6; O2SAT 97
[2017-01-15] MEDS: HYDROmorphone INJ 2 MG/ML SYR/VIAL IV PRN ×2 (21:11→23:26)
[2017-01-15 21:16] LABS: AMYLASE 218 U/L (25-115)
[2017-01-15 23:34] VITALS: BP 140/89; PULSE 93; TEMP 36.8; O2SAT 97
[2017-01-16] VITALS (7 sets, daily range): BP systolic 132–144; BP diastolic 73–92; PULSE 76–122; TEMP 36.7–37.9; O2SAT 92–99
[2017-01-16 01:10] LABS: BUN/CREATININE RATIO 6.7 (10-20); CREATININE 0.81 mg/dl (0.60-1.40); MAGNESIUM 1.9 mg/dl (1.8-2.4); POTASSIUM 3.8 mmol/L (3.5-5.1)
[2017-01-16] MEDS: LACTATED RINGER'S 1000ML 1,000 ML IV SCH ×7 (01:17→21:26)
[2017-01-16] MEDS: HYDROmorphone INJ 2 MG/ML SYR/VIAL IV PRN ×8 (01:24→22:46)
[2017-01-16] MEDS: CHLORDIAZEPOXIDE 50MG 1ST DOSE PO SCH ×2 (05:44→12:21)
[2017-01-16 06:52] LABS: HEMATOCRIT 43.6 % (42-52); MEAN CELL VOLUME 92.8 fL (80-100); MEAN CORPUSCULAR HEMOGLOBIN 33.8 pg (25-34); MEAN CORPUSCULAR HGB CONC 36.5 g/dl (32-36); MEAN PLATELET VOLUME 9.3 fL (7.4-10.4); PLATELET COUNT 127 K/uL (130-400); WHITE BLOOD COUNT 6.37 K/uL (4.8-10.8)
[2017-01-16 06:59] LABS: BUN/CREATININE RATIO 6.1 (10-20); CALCIUM 8.6 mg/dl (8.5-10.1); CREATININE 0.76 mg/dl (0.60-1.40); MAGNESIUM 1.9 mg/dl (1.8-2.4); POTASSIUM 3.8 mmol/L (3.5-5.1)
[2017-01-16] MEDS: INSULIN ASPART 100 UNITS/ML 3 ML PEN SC SCH ×4 (07:00→20:30)
[2017-01-16 07:10] LABS: ESTIMATED AVERAGE GLUCOSE 163 mg/dl; HA1C FLAG Normal (Normal)
[2017-01-16 07:43] LABS: COMPLETE YES; LYMPH ABS # 0.45 K/uL (1.2-3.4); LYMPHOCYTE % 7.1 %; NEUTROPHILS % 88.4 %
[2017-01-16] MEDS: LORAZEPAM 2 MG/ML 1 ML VIAL IV PRN (08:37)
[2017-01-16] MEDS: THIAMINE HCL 100 MG TAB PO SCH (08:38)
[2017-01-16] MEDS: PAROXETINE 20 MG TAB PO SCH (08:38)
--- NOTE | 2017-01-16 09:53 | Progress Note ---
Medicine Progress Note Date & Time of Visit: Jan 16, 2017 at 09:44. Subjective patient seen resting in bed, sleeping but easily rousable abdominal pain about the same as yesterday, relieved with Dilaudid q2h denies nausea, chills, no problems with urination reports occasional hematochezia/melena within the past month no chest pain, dyspnea no tremors, sweats, hallucinations denies other symptoms Objective Last 8 Hrs Date Time Temp Pulse Resp B/P (MAP) Pulse Ox O2 Delivery O2 Flow Rate FiO2 01/16/17 08:12 36.8 89 16 140/88 (105) 99 01/16/17 04:00 Room Air 01/16/17 03:21 36.7 84 21 144/92 (109) 95 Room Air Physical Exam: General- oriented x 3, not in distress, speaks in sentences with no effort Eyes- anicteric Neck- no JVD Lungs- clear breath sounds bilaterally no rales/wheezes Heart- regular rhythm; no murmur, normal rate Abdomen- hypoactive bowel sounds, non distended, soft, mild tenderness on Upper quadrants Extremities- no pretibial edema, no calf tenderness; peripheral pulses intact Neuro- alert, oriented x 3; no gross focal deficits Skin- warm & dry Laboratory Results: Last 24 Hours Test 01/15/17 12:35 01/15/17 12:41 01/15/17 15:30 01/15/17 16:49 White Blood Count 6.99 K/uL Red Blood Count 5.35 M/uL Hemoglobin 17.3 g/dL Hematocrit 49.3 % Mean Corpuscular Volume 92.1 fL Mean Corpuscular Hemoglobin 32.3 pg Mean Corpuscular Hemoglobin Concent 35.1 g/dl Platelet Count 159 K/uL Mean Platelet Volume 9.0 fL Neutrophils (%) (Auto) 76.6 % Lymphocytes (%) (Auto) 11.6 % Monocytes (%) (Auto) 9.2 % Eosinophils (%) (Auto) 2.1 % Basophils (%) (Auto) 0.4 % Neutrophils # (Auto) 5.35 K/uL Lymphocytes # (Auto) 0.81 K/uL Monocytes # (Auto) 0.64 K/uL Eosinophils # (Auto) 0.15 K/uL Basophils # (Auto) 0.03 K/uL RDW Standard Deviation 40.9 fL RDW Coefficient of Variation 12.2 % Immature Granulocyte % (Auto) 0.1 % Immature Granulocyte # (Auto) 0.01 K/uL Sodium Level 137 mmol/L Potassium Level 3.9 mmol/L Chloride Level 100 mmol/L Carbon Dioxide Level 26 mmol/L Anion Gap 11.0 mmol/L Blood Urea Nitrogen 9 mg/dl Creatinine 1.10 mg/dl Est Creatinine Clear Calc Drug Dose 106.2 ml/min Estimated GFR () 94.8 Estimated GFR (Non- 81.8 BUN/Creatinine Ratio 8.2 Random Glucose 195 mg/dl Calcium Level 9.2 mg/dl Magnesium Level 2.2 mg/dl Total Bilirubin 1.3 mg/dl Direct Bilirubin 0.3 mg/dl Aspartate Amino Transf (AST/SGOT) 53 U/L Alanine Aminotransferase (ALT/SGPT) 58 U/L Alkaline Phosphatase 115 U/L Total Creatine Kinase 359 U/L Total Protein 8.4 gm/dl Albumin 3.8 gm/dl Amylase Level 50 U/L Lipase 359 U/L Bedside Lactic Acid Venous 1.50 mmol/L Urine Color YELLOW Urine Appearance CLEAR Urine pH 5.0 Urine Specific Schneider > 1.045 Urine Protein NEG Urine Glucose (UA) 2+ Urine Ketones 1+ Urine Occult Blood NEG Urine Nitrite NEG Urine Bilirubin NEG Urine Urobilinogen NEG Urine Leukocyte Esterase NEG Urine WBC (Auto) 0 /hpf Urine RBC (Auto) 0-4 /hpf Urine Hyaline Casts (Auto) 1-5 /lpf Urine Epithelial Cells (Auto) 0-5 /lpf Urine Bacteria (Auto) NEG Bedside Glucose 168 mg/dl Test 01/15/17 19:15 01/15/17 20:42 01/16/17 00:17 01/16/17 05:50 Amylase Level 182 U/L 218 U/L Vitamin B12 Level 571 pg/mL Folate > 24.00 ng/mL Lipase 2180 U/L 1880 U/L Sodium Level 141 mmol/L 138 mmol/L Potassium Level 3.8 mmol/L 3.8 mmol/L Chloride Level 104 mmol/L 102 mmol/L Carbon Dioxide Level 28 mmol/L 25 mmol/L Anion Gap 9.0 mmol/L 11.0 mmol/L Blood Urea Nitrogen 5 mg/dl 5 mg/dl Creatinine 0.81 mg/dl 0.76 mg/dl Est Creatinine Clear Calc Drug Dose 144.2 ml/min 154.9 ml/min Estimated GFR () 126.2 129.5 Estimated GFR (Non- 108.9 111.7 BUN/Creatinine Ratio 6.7 6.1 Random Glucose 150 mg/dl 140 mg/dl Calcium Level 8.0 mg/dl 8.6 mg/dl Magnesium Level 1.9 mg/dl 1.9 mg/dl White Blood Count 6.37 K/uL Red Blood Count 4.70 M/uL Hemoglobin 15.9 g/dL Hematocrit 43.6 % Mean Corpuscular Volume 92.8 fL Mean Corpuscular Hemoglobin 33.8 pg Mean Corpuscular Hemoglobin Concent 36.5 g/dl Platelet Count 127 K/uL Mean Platelet Volume 9.3 fL RDW Standard Deviation 41.2 fL RDW Coefficient of Variation 12.1 % Neutrophils % (Manual) 88.4 % Lymphocytes % (Manual) 7.1 % Monocytes % (Manual) 4.5 % Neutrophils # (Manual) 5.63 K/uL Total Absolute Neutrophils 5.63 K/uL Lymphocytes # (Manual) 0.45 K/uL Total Absolute Lymphocytes 0.45 K/uL Monocytes # (Manual) 0.29 K/uL Red Blood Cell Morphology Unremarkable Estimated Average Glucose 163 mg/dl Hemoglobin A1c 7.3 % Total Bilirubin 1.3 mg/dl Direct Bilirubin 0.3 mg/dl Aspartate Amino Transf (AST/SGOT) 41 U/L Alanine Aminotransferase (ALT/SGPT) 41 U/L Alkaline Phosphatase 86 U/L Total Protein 6.8 gm/dl Albumin 3.1 gm/dl Test 01/16/17 06:42 Bedside Glucose 129 mg/dl Assessment & Plan 41 year old male with history of Alcoholism, Pancreatitis, DM, Bipolar Disorder , GERD presenting with abdominal pain starting yesterday. ACUTE PANCREATITIS LIKELY FROM ALCOHOL - afebrile , hemodynamically stable electrolytes stable lipase from 2,100 to 1,800 - abdominal pain about the same relieved with Dilaudid 2mg q2h - continue Lactated Ringer's at 250cc/hr PRN Dilaudid NPO except meds, ice chips - GI consulted, appreciate the input ALCOHOLISM POSSIBLE EARLY ALCOHOL WITHDRAWAL - alcohol withdrawal protocol including Librium taper and PRN ativan started (patient reports severe restless legs with Gabapentin) - so far, no overt signs of alcohol withdrawal discussed with RN to monitor mental status and respiratory status closely while on Librium, Ativan, Dilaudid HISTORY OF ANXIETY, BIPOLAR mood stable as per patient continue Paroxetine GERD Protonix IV DM 2 A1c 7.3 hold glipizide on ISS blood glucose levels stable Pharmacy Glycemic Control Consult placed appreciate the input DVT PROPHYLAXIS patient reports intermittent melena/hematochezia within the past month hold off on Lovenox/Heparin SCDs for now ambulate early FULL CODE per patient DISPOSITION pending lives at home follows with Dr. Myers for PCP will need to ff up with [facility] Current Inpatient Medications: Current Inpatient Medications Medications (Trade) Dose Ordered Sig/Carmita Route Start Time Stop Time Status Last Admin Dose Admin Ioversol (Optiray 320) 125 ml UD PRN IV 01/15/17 13:45 01/19/17 13:44 Acetaminophen (Tylenol Tab) 650 mg Q4H PRN PO 01/15/17 15:00 02/14/17 14:59 Ondansetron HCl (Zofran Inj) 4 mg Q6H PRN IV 01/15/17 15:00 02/14/17 14:59 01/15/17 15:26 4 MG Lactated Ringer's 1,000 ml @ 250 mls/hr Q4H IV 01/15/17 15:00 02/14/17 14:59 01/16/17 08:38 250 MLS/HR Thiamine HCl (Vitamin B-1 Tab) 100 mg DAILY PO 01/16/17 09:00 02/15/17 08:59 01/16/17 08:38 100 MG Lorazepam (Ativan Inj) PRN Dosing -Active Protocol Q1H PRN IV 01/15/17 15:00 02/14/17 14:59 01/16/17 08:37 1 MG Paroxetine HCl (pAXil TAB) 20 mg DAILY PO 01/16/17 09:00 02/15/17 08:59 01/16/17 08:38 20 MG Pantoprazole Sodium 40 mg/ Syringe 10 ml @ 5 mls/min DAILY@11 IV 01/16/17 11:00 02/15/17 10:59 Insulin Aspart (novoLOG ASPART) SLIDING SCALE If C... ACHS SC 01/15/17 16:00 02/14/17 15:59 01/15/17 21:07 1 UNITS Glucose (Glucose 40% Gel) 15-30 GRAMS 15 GRAMS... UD PRN PO 01/15/17 15:00 02/14/17 14:59 Glucose (Glucose Chew Tab) 4-8 Tablets 4 Tabl... UD PRN PO 01/15/17 15:00 02/14/17 14:59 Dextrose (Dextrose 50% 50ML Syringe) 25-50ML OF 50% DW IV FOR... UD PRN IV 01/15/17 15:00 02/14/17 14:59 Glucagon (Glucagon Inj) 1 mg UD PRN SQ 01/15/17 15:00 02/14/17 14:59 Miscellaneous Information (Consult Glycemic Management Pharmacy) 1 ea UD PRN N/A 01/15/17 15:04 02/14/17 15:03 Chlordiazepoxide (Librium Cap) 50 mg Q6H PO 01/15/17 18:00 01/16/17 12:01 01/16/17 05:44 50 MG Chlordiazepoxide (Librium Cap) 50 mg Q8H PO 01/16/17 20:00 01/17/17 12:01 Chlordiazepoxide (Librium Cap) 25 mg Q8H PO 01/17/17 22:00 01/18/17 14:01 Chlordiazepoxide (Librium Cap) 10 mg Q12H PO 01/18/17 00:00 01/18/17 12:01 Hydromorphone HCl (Dilaudid Inj) 2 mg Q2HWA PRN IV 01/15/17 21:15 01/29/17 21:14 01/16/17 08:37 2 MG
[2017-01-16] MEDS: PANTOprazole INJ 40 MG in SYRINGE 0 ML IV SCH (10:49)
--- NOTE | 2017-01-16 16:11 | Gastrointestinal Consultation ---
Gastrointestinal Consultation Date of Consultation: Jan 16, 2017 Attending Physician: Dr. Lind Consulting Physician: Dr. Deborah Molina Reason for Consultation: Acute pancreatitis History of Present Illness Patient is a 41 year old male patient of Dr. Dhiraj Myers with a hx of alcoholic pancreatitis who presented to the ED yesterday for abdominal pain. Labs and CT were consistent with recurrent acute pancreatitis. GI is consulted for the pancreatitis. The pt is known to us as he has received care here previously, though not since 2010. He underwent EUS by Dr. Padilla on 02/04/10 with mild chronic pancreatitis as well as cholesterolosis of the gallbladder and subsequently underwent cholecystectomy. He underwent a thorough work up by Dr Weiner which ruled out CF , autoimmune pancreatitis. He tells me that he has had pancreatitis as recently as a few months ago and was cared for at [facility]. he also says that he has intermittent abdominal pain that is present a few days a few times/ month. This time,it began last night and was severe, persistent and he presented to the ED. He tells me that typically abstains from alcohol but that he drank about 4 beers on 01/12. Past Medical/Surgical History Medical Problems: (1) Acute pancreatitis Status: Acute (2) Alcohol abuse Status: Acute (3) Alcohol overdose Status: Acute (4) Alcohol withdrawal Status: Acute (5) Combative behavior Status: Acute (6) Contusion of right hand Status: Acute (7) Facial trauma Status: Acute (8) Hyperglycemia Status: Acute (9) Hyperglycemia due to type 2 diabetes mellitus Status: Acute (10) Midsternal chest pain Status: Acute (11) Shortness of breath Status: Acute Past Medical History: 1. Renae's esophagus 2. Depression 3. DM-2 4. GERD 5. Suicide attempt Past Surgical History: (1) Alcohol abuse Status: Chronic (2) Alcohol intoxication Status: Resolved (3) Renae's esophagus Permanent Comment: per EGD 11/23/09 Status: Chronic (4) Depression Status: Chronic (5) Depression Status: Chronic (6) DM type 2 (diabetes mellitus, type 2) Status: Chronic 1. EGD 11/23/2009- mild gastritis, suspicious for gastroparesis, Z-line irregular 2. EUS 02/04/2010- mild chronic pancreatitis, pronounced cholesterolosis of gallbladder, no biliary dilation or stones, probable gastroparesis 3. EGD 10/31/2014- gastritis 4. Lumbar fusion 5. Appendectomy 6. Cholecystectomy Family History Depression FATHER FH: alcohol abuse FATHER FH: cancer FH: heart disease FH: manic depression AUNT Social History Smoking Status: Former Smoker Alcohol Use: occasionally Drug Use: none, other Marital Status: Housing Status: lives with family Occupation Status: unemployed Allergies Coded Allergies: NO KNOWN DRUG ALLERGIES (Verified Allergy, Unknown, NONE, 01/15/17) Current Medications Home Meds and Scripts Medications Dose Route/Sig Max Daily Dose Days Date Category Ultram (Tramadol HCl) 50 Mg Tab 50 Mg PO DAILY PRN 07/04/16 Reported Protonix (Pantoprazole Sodium) 40 Mg Tab 40 Mg PO DAILY 01/17/16 Reported Paxil (Paroxetine HCl) 20 Mg Tab 20 Mg PO DAILY 01/12/16 Reported Review of Systems Constitutional: No fever, No chills, No sweats, No weight loss, No weakness Eyes: No eye pain, No redness ENT: No sore throat, No trouble swallowing, No pain on swallowing Respiratory: No cough, No wheezing, No shortness of breath, No dyspnea on exertion Cardiac: No chest pain, No edema, No palpitations Abdomen: + see HPI, + pain Neuro: No memory loss, No weakness, No numbness/tingling, No vertigo, No balance problems Psych: No depression symptoms, No anxiety, No insomnia Heme: No abnormal bleeding/bruising, No night sweats Endo: No excessive thirst, No excessive urination Skin: No rash, No itch, No new/changing skin lesions, No jaundice Physical Exam Date Time Temp Pulse Resp B/P (MAP) Pulse Ox O2 Delivery O2 Flow Rate FiO2 01/16/17 15:06 36.7 113 18 132/90 (104) 94 Room Air 01/16/17 12:00 Room Air 01/16/17 11:40 36.7 76 18 138/73 (94) 94 01/16/17 08:12 36.8 89 16 140/88 (105) 99 01/16/17 08:00 Room Air 01/16/17 04:00 Room Air 01/16/17 03:21 36.7 84 21 144/92 (109) 95 Room Air 01/16/17 00:02 Room Air 01/15/17 23:34 36.8 93 22 140/89 (106) 97 Room Air 01/15/17 20:00 Room Air 01/15/17 19:33 36.6 91 18 136/81 (99) 97 Room Air 01/15/17 16:45 37.2 109 20 165/88 (113) 95 Room Air 01/15/17 16:45 Room Air 01/15/17 16:35 89 20 157/98 100 Room Air General Appearance: + moderate distress (c/o abdominal pain) Eyes: normal inspection, EOMI Neck: supple, no adenopathy, thyroid normal Respiratory/Chest: chest non-tender, lungs clear, normal breath sounds, no accessory muscle use Cardiovascular: regular rate, rhythm, no JVD, no murmur Abdomen: normal bowel sounds, non tender, soft, no organomegaly, + tenderness ( moderate epigastric tenderness) Extremities: normal inspection, no pedal edema, normal capillary refill Neurologic/Psych: alert, normal mood/affect, oriented x 3 Skin: normal color, no jaundice, warm/dry, no rash Laboratory Results Last 24 Hours Test 01/15/17 16:49 01/15/17 19:15 01/15/17 20:42 01/16/17 00:17 Bedside Glucose 168 mg/dl Amylase Level 182 U/L 218 U/L Vitamin B12 Level 571 pg/mL Folate > 24.00 ng/mL Lipase 2180 U/L Sodium Level 141 mmol/L Potassium Level 3.8 mmol/L Chloride Level 104 mmol/L Carbon Dioxide Level 28 mmol/L Anion Gap 9.0 mmol/L Blood Urea Nitrogen 5 mg/dl Creatinine 0.81 mg/dl Est Creatinine Clear Calc Drug Dose 144.2 ml/min Estimated GFR () 126.2 Estimated GFR (Non- 108.9 BUN/Creatinine Ratio 6.7 Random Glucose 150 mg/dl Calcium Level 8.0 mg/dl Magnesium Level 1.9 mg/dl Test 01/16/17 05:50 01/16/17 06:42 01/16/17 10:52 White Blood Count 6.37 K/uL Red Blood Count 4.70 M/uL Hemoglobin 15.9 g/dL Hematocrit 43.6 % Mean Corpuscular Volume 92.8 fL Mean Corpuscular Hemoglobin 33.8 pg Mean Corpuscular Hemoglobin Concent 36.5 g/dl Platelet Count 127 K/uL Mean Platelet Volume 9.3 fL RDW Standard Deviation 41.2 fL RDW Coefficient of Variation 12.1 % Neutrophils % (Manual) 88.4 % Lymphocytes % (Manual) 7.1 % Monocytes % (Manual) 4.5 % Neutrophils # (Manual) 5.63 K/uL Total Absolute Neutrophils 5.63 K/uL Lymphocytes # (Manual) 0.45 K/uL Total Absolute Lymphocytes 0.45 K/uL Monocytes # (Manual) 0.29 K/uL Red Blood Cell Morphology Unremarkable Sodium Level 138 mmol/L Potassium Level 3.8 mmol/L Chloride Level 102 mmol/L Carbon Dioxide Level 25 mmol/L Anion Gap 11.0 mmol/L Blood Urea Nitrogen 5 mg/dl Creatinine 0.76 mg/dl Est Creatinine Clear Calc Drug Dose 154.9 ml/min Estimated GFR () 129.5 Estimated GFR (Non- 111.7 BUN/Creatinine Ratio 6.1 Random Glucose 140 mg/dl Estimated Average Glucose 163 mg/dl Hemoglobin A1c 7.3 % Calcium Level 8.6 mg/dl Magnesium Level 1.9 mg/dl Total Bilirubin 1.3 mg/dl Direct Bilirubin 0.3 mg/dl Aspartate Amino Transf (AST/SGOT) 41 U/L Alanine Aminotransferase (ALT/SGPT) 41 U/L Alkaline Phosphatase 86 U/L Total Protein 6.8 gm/dl Albumin 3.1 gm/dl Lipase 1880 U/L Bedside Glucose 129 mg/dl 139 mg/dl Impression Patient is a 41 year old male here with acute on chronic pancreatitis, caused by prior increased alcohol intake as well as a recent alcohol intake. Plan 1. Agree with LR at 250cc/hr. 2. Complete alcohol abstention discussed with patient. 3. Plan for EUS in 6 weeks. Our office will contact the pt to set this up. 4. Follow Lipase to resolution, recheck LFTs in a few days. 5. No IP GI procedures or further imaging recommended. 6. Pain management by primary hospitalist service or consider pain management service. 7. GI will watch peripherally. Please contact us if any new/worsening GI issues. I saw and evaluated the patient with Ms. Alvares. The patient has a history of alcohol abuse and was admtted with mild pancreatitis. Of note he admits to admissions to several hospitals over the past for the same issues (prior EUS in 2010). PE: NAD< no icterus Impression:Patient admitted with mild alcohol induced pancreatitis, presently there is no evidence of necrosis, infeciton or hemodynamic instability. REcomendations: 1) stop ETOH consumption 2) Continue with aggressive IV hydration (LR at 250 / hour for today) 3) OP EUS 4) consider advancing diet to clears on Monday (then as tolerated) Please call with any quesitons or concerns
[2017-01-16 18:13] LABS: BUN/CREATININE RATIO 5.2 (10-20); CALCIUM 8.8 mg/dl (8.5-10.1); CREATININE 0.69 mg/dl (0.60-1.40); MAGNESIUM 1.9 mg/dl (1.8-2.4); POTASSIUM 3.8 mmol/L (3.5-5.1)
[2017-01-16] MEDS: CHLORDIAZEPOXIDE 50MG Q8H DOSE PO SCH (19:37)
[2017-01-17] VITALS (7 sets, daily range): BP systolic 129–150; BP diastolic 78–91; PULSE 97–127; TEMP 36.5–37.5; O2SAT 90–94
[2017-01-17] MEDS: HYDROmorphone INJ 2 MG/ML SYR/VIAL IV PRN ×8 (01:34→21:34)
[2017-01-17] MEDS: LACTATED RINGER'S 1000ML 1,000 ML IV SCH ×5 (01:47→17:56)
[2017-01-17] MEDS: CHLORDIAZEPOXIDE 50MG Q8H DOSE PO SCH ×2 (03:40→11:55)
[2017-01-17] MEDS: INSULIN ASPART 100 UNITS/ML 3 ML PEN SC SCH ×4 (07:00→21:00)
[2017-01-17 07:47] LABS: BASO % 0.3 %; BASO ABS # 0.02 K/uL (0-0.2); COMPLETE YES; EOS % 5.3 %; HEMATOCRIT 43.4 % (42-52); IG% 0.2 %; LYMPH % 20.6 %; LYMPH ABS # 1.35 K/uL (1.2-3.4); MEAN CELL VOLUME 96.7 fL (80-100); MEAN CORPUSCULAR HEMOGLOBIN 34.3 pg (25-34); MEAN CORPUSCULAR HGB CONC 35.5 g/dl (32-36); MEAN PLATELET VOLUME 9.5 fL (7.4-10.4); NEUT % 61.6 %; PLATELET COUNT 130 K/uL (130-400); RED BLOOD COUNT 4.49 M/uL (4.7-6.1); WHITE BLOOD COUNT 6.56 K/uL (4.8-10.8)
[2017-01-17] MEDS: LORAZEPAM 2 MG/ML 1 ML VIAL IV PRN (08:03)
[2017-01-17] MEDS: PAROXETINE 20 MG TAB PO SCH (08:04)
[2017-01-17] MEDS: THIAMINE HCL 100 MG TAB PO SCH (08:04)
[2017-01-17 08:15] LABS: BUN/CREATININE RATIO 3.3 (10-20); CREATININE 0.96 mg/dl (0.60-1.40); MAGNESIUM 1.8 mg/dl (1.8-2.4); POTASSIUM 3.9 mmol/L (3.5-5.1)
[2017-01-17 08:49] LABS: CALCIUM 8.9 mg/dl (8.5-10.1)
[2017-01-17] MEDS: PANTOprazole INJ 40 MG in SYRINGE 0 ML IV SCH (10:33)
--- NOTE | 2017-01-17 10:51 | Progress Note ---
Medicine Progress Note Date & Time of Visit: Jan 17, 2017 at 10:51 . Subjective Afebrile. Persistent severe epigastric pain. Nausea, but no emesis. Not passing any stool. No chest pain. Occasional cough, no shortness of breath. No tremors or hallucinations. . Objective Last 8 Hrs Date Time Temp Pulse Resp B/P (MAP) Pulse Ox O2 Delivery O2 Flow Rate FiO2 01/17/17 07:18 36.6 120 18 150/86 (107) 94 Room Air 01/17/17 04:40 92 Room Air 01/17/17 04:02 37.5 127 22 129/78 (95) 92 Room Air Physical Exam: General- lying in bed, uncomfortable Eyes- anicteric Neck- no JVD Lungs- clear to auscultation Heart- regular Abdomen- quite bowel sounds, slightly distended, moderately severe epigastric tenderness with guarding Extremities- no pretibial edema or calf tenderness Neuro- moderately somnolent, oriented, no apparent hallucinations . Laboratory Results: Last 24 Hours Test 01/16/17 10:52 01/16/17 16:35 01/16/17 17:07 01/16/17 20:18 Bedside Glucose 139 mg/dl 134 mg/dl 122 mg/dl Sodium Level 137 mmol/L Potassium Level 3.8 mmol/L Chloride Level 101 mmol/L Carbon Dioxide Level 24 mmol/L Anion Gap 12.0 mmol/L Blood Urea Nitrogen 4 mg/dl Creatinine 0.69 mg/dl Est Creatinine Clear Calc Drug Dose 170.6 ml/min Estimated GFR () 134.8 Estimated GFR (Non- 116.3 BUN/Creatinine Ratio 5.2 Random Glucose 125 mg/dl Calcium Level 8.8 mg/dl Magnesium Level 1.9 mg/dl Test 01/17/17 06:57 01/17/17 07:14 Bedside Glucose 110 mg/dl White Blood Count 6.56 K/uL Red Blood Count 4.49 M/uL Hemoglobin 15.4 g/dL Hematocrit 43.4 % Mean Corpuscular Volume 96.7 fL Mean Corpuscular Hemoglobin 34.3 pg Mean Corpuscular Hemoglobin Concent 35.5 g/dl Platelet Count 130 K/uL Mean Platelet Volume 9.5 fL Neutrophils (%) (Auto) 61.6 % Lymphocytes (%) (Auto) 20.6 % Monocytes (%) (Auto) 12.0 % Eosinophils (%) (Auto) 5.3 % Basophils (%) (Auto) 0.3 % Neutrophils # (Auto) 4.04 K/uL Lymphocytes # (Auto) 1.35 K/uL Monocytes # (Auto) 0.79 K/uL Eosinophils # (Auto) 0.35 K/uL Basophils # (Auto) 0.02 K/uL RDW Standard Deviation 43.7 fL RDW Coefficient of Variation 12.4 % Immature Granulocyte % (Auto) 0.2 % Immature Granulocyte # (Auto) 0.01 K/uL Sodium Level 138 mmol/L Potassium Level 3.9 mmol/L Chloride Level 99 mmol/L Carbon Dioxide Level 27 mmol/L Anion Gap 12.0 mmol/L Blood Urea Nitrogen 3 mg/dl Creatinine 0.96 mg/dl Est Creatinine Clear Calc Drug Dose 124.3 ml/min Estimated GFR () 111.8 Estimated GFR (Non- 96.4 BUN/Creatinine Ratio 3.3 Random Glucose 110 mg/dl Calcium Level 8.9 mg/dl Magnesium Level 1.8 mg/dl Total Bilirubin 1.3 mg/dl Direct Bilirubin 0.4 mg/dl Aspartate Amino Transf (AST/SGOT) 80 U/L Alanine Aminotransferase (ALT/SGPT) 70 U/L Alkaline Phosphatase 127 U/L Total Protein 6.7 gm/dl Albumin 2.8 gm/dl Assessment & Plan ACUTE / CHRONIC PANCREATITIS Initial lipase 359, but subsequently chloe as high as 2180. CT of abdomen and pelvis demonstrated infiltration of the fat surrounding the pancreatic head consistent with acute pancreatitis, no apparent mass, abscess, cyst, pseudocyst. GI consulted. Outpatient EUS recommended. Still experiencing significant epigastric pain. Continue bowel rest, IV fluids, analgesics, antiemetics. ALCOHOL WITHDRAWAL Symptoms improved. Continue chlordiazepoxide per protocol. ALCOHOL ABUSE Thiamine daily. Offer counseling. CALLOWAY'S ESOPHAGUS Continue PPI. VTE PROPHYLAXIS No anticoagulants due to GI symptoms. SCD's. DISPOSITION Expected discharge to home. Family Medicine follow-up with Dr. Dhiraj Myers. . Current Inpatient Medications: Current Inpatient Medications Medications (Trade) Dose Ordered Sig/Carmita Route Start Time Stop Time Status Last Admin Dose Admin Ioversol (Optiray 320) 125 ml UD PRN IV 01/15/17 13:45 01/19/17 13:44 Acetaminophen (Tylenol Tab) 650 mg Q4H PRN PO 6/11/17 15:00 02/14/17 14:59 Ondansetron HCl (Zofran Inj) 4 mg Q6H PRN IV 01/15/17 15:00 02/14/17 14:59 01/15/17 15:26 4 MG Lactated Ringer's 1,000 ml @ 250 mls/hr Q4H IV 01/15/17 15:00 02/14/17 14:59 01/17/17 10:33 250 MLS/HR Thiamine HCl (Vitamin B-1 Tab) 100 mg DAILY PO 01/16/17 09:00 02/15/17 08:59 01/17/17 08:04 100 MG Lorazepam (Ativan Inj) PRN Dosing -Active Protocol Q1H PRN IV 01/15/17 15:00 02/14/17 14:59 01/17/17 08:03 1 MG Paroxetine HCl (pAXil TAB) 20 mg DAILY PO 01/16/17 09:00 02/15/17 08:59 01/17/17 08:04 20 MG Pantoprazole Sodium 40 mg/ Syringe 10 ml @ 5 mls/min DAILY@11 IV 01/16/17 11:00 02/15/17 10:59 01/17/17 10:33 5 MLS/MIN Insulin Aspart (novoLOG ASPART) SLIDING SCALE If C... ACHS SC 01/15/17 16:00 02/14/17 15:59 01/15/17 21:07 1 UNITS Glucose (Glucose 40% Gel) 15-30 GRAMS 15 GRAMS... UD PRN PO 01/15/17 15:00 02/14/17 14:59 Glucose (Glucose Chew Tab) 4-8 Tablets 4 Tabl... UD PRN PO 01/15/17 15:00 02/14/17 14:59 Dextrose (Dextrose 50% 50ML Syringe) 25-50ML OF 50% DW IV FOR... UD PRN IV 01/15/17 15:00 02/14/17 14:59 Glucagon (Glucagon Inj) 1 mg UD PRN SQ 01/15/17 15:00 02/14/17 14:59 Miscellaneous Information (Consult Glycemic Management Pharmacy) 1 ea UD PRN N/A 01/15/17 15:04 02/14/17 15:03 Chlordiazepoxide (Librium Cap) 50 mg Q8H PO 01/16/17 20:00 01/17/17 12:01 01/17/17 03:40 50 MG Chlordiazepoxide (Librium Cap) 25 mg Q8H PO 01/17/17 22:00 01/18/17 14:01 Chlordiazepoxide (Librium Cap) 10 mg Q12H PO 01/18/17 00:00 01/18/17 12:01 Hydromorphone HCl (Dilaudid Inj) 2 mg Q2HWA PRN IV 01/15/17 21:15 01/29/17 21:14 01/17/17 10:33 2 MG
[2017-01-17] MEDS: CHLORDIAZEPOXIDE 25MG Q8H DOSE PO SCH (21:37)
[2017-01-18] VITALS (9 sets, daily range): BP systolic 120–145; BP diastolic 77–96; PULSE 88–111; TEMP 36.5–37.1; O2SAT 92–97
[2017-01-18] MEDS: HYDROmorphone INJ 2 MG/ML SYR/VIAL IV PRN ×8 (03:04→23:16)
[2017-01-18] MEDS: CHLORDIAZEPOXIDE 25MG Q8H DOSE PO SCH ×2 (05:25→13:51)
[2017-01-18] MEDS: LACTATED RINGER'S 1000ML 1,000 ML IV SCH ×5 (07:08→20:51)
[2017-01-18 07:10] LABS: BASO % 0.5 %; BASO ABS # 0.02 K/uL (0-0.2); COMPLETE YES; EOS % 6.2 %; HEMATOCRIT 40.8 % (42-52); IG% 0.2 %; LYMPH ABS # 0.97 K/uL (1.2-3.4); MEAN CELL VOLUME 95.8 fL (80-100); MEAN CORPUSCULAR HEMOGLOBIN 33.6 pg (25-34); MEAN PLATELET VOLUME 9.1 fL (7.4-10.4); MONO % 13.3 %; NEUT % 56.8 %; PLATELET COUNT 119 K/uL (130-400); RED BLOOD COUNT 4.26 M/uL (4.7-6.1); WHITE BLOOD COUNT 4.21 K/uL (4.8-10.8)
[2017-01-18] MEDS: PAROXETINE 20 MG TAB PO SCH (07:40)
[2017-01-18] MEDS: THIAMINE HCL 100 MG TAB PO SCH (07:40)
[2017-01-18] MEDS: INSULIN ASPART 100 UNITS/ML 3 ML PEN SC SCH ×4 (07:43→20:53)
[2017-01-18 08:03] LABS: ALB/GLOB RATIO 0.7 (0.9-2); BUN/CREATININE RATIO 3.6 (10-20); CALCIUM 8.6 mg/dl (8.5-10.1); CREATININE 0.88 mg/dl (0.60-1.40); MAGNESIUM 1.9 mg/dl (1.8-2.4); POTASSIUM 3.5 mmol/L (3.5-5.1)
[2017-01-18] MEDS: LORAZEPAM 2 MG/ML 1 ML VIAL IV PRN (09:44)
[2017-01-18] MEDS: CHLORDIAZEPOXIDE 10MG Q12H DOSE PO SCH ×2 (11:55)
[2017-01-18] MEDS: PANTOprazole INJ 40 MG in SYRINGE 0 ML IV SCH (11:55)
--- NOTE | 2017-01-18 19:33 | Progress Note ---
Medicine Progress Note Date & Time of Visit: Jan 18, 2017 at 16:15 . Subjective No fever. Occasional cough. No SOB. No chest pain. Persistent epigastric abdominal pain and nausea. Still requiring IV analgesics. No emesis today. No diarrhea. . Objective Last 8 Hrs Date Time Temp Pulse Resp B/P (MAP) Pulse Ox O2 Delivery O2 Flow Rate FiO2 01/18/17 15:36 36.5 93 18 143/92 (109) 96 Room Air 01/18/17 12:00 96 Room Air 01/18/17 11:43 37.0 99 22 120/77 (91) 92 Room Air Physical Exam: General- lying in bed, appears to be uncomfortable but in no acute distress Eyes- anicteric Neck- no JVD Lungs- clear to auscultation Heart- regular Abdomen- + bowel sounds, slightly distended, moderately severe epigastric tenderness Extremities- no pretibial edema or calf tenderness Neuro- more alert, oriented, no apparent hallucinations . Laboratory Results: Last 24 Hours Test 01/17/17 20:08 01/18/17 06:58 01/18/17 07:09 01/18/17 11:21 Bedside Glucose 109 mg/dl 165 mg/dl 125 mg/dl White Blood Count 4.21 K/uL Red Blood Count 4.26 M/uL Hemoglobin 14.3 g/dL Hematocrit 40.8 % Mean Corpuscular Volume 95.8 fL Mean Corpuscular Hemoglobin 33.6 pg Mean Corpuscular Hemoglobin Concent 35.0 g/dl Platelet Count 119 K/uL Mean Platelet Volume 9.1 fL Neutrophils (%) (Auto) 56.8 % Lymphocytes (%) (Auto) 23.0 % Monocytes (%) (Auto) 13.3 % Eosinophils (%) (Auto) 6.2 % Basophils (%) (Auto) 0.5 % Neutrophils # (Auto) 2.39 K/uL Lymphocytes # (Auto) 0.97 K/uL Monocytes # (Auto) 0.56 K/uL Eosinophils # (Auto) 0.26 K/uL Basophils # (Auto) 0.02 K/uL RDW Standard Deviation 42.6 fL RDW Coefficient of Variation 12.2 % Immature Granulocyte % (Auto) 0.2 % Immature Granulocyte # (Auto) 0.01 K/uL Sodium Level 139 mmol/L Potassium Level 3.5 mmol/L Chloride Level 103 mmol/L Carbon Dioxide Level 29 mmol/L Anion Gap 7.0 mmol/L Blood Urea Nitrogen 3 mg/dl Creatinine 0.88 mg/dl Est Creatinine Clear Calc Drug Dose 134.8 ml/min Estimated GFR () 121.9 Estimated GFR (Non- 105.2 BUN/Creatinine Ratio 3.6 Random Glucose 172 mg/dl Calcium Level 8.6 mg/dl Magnesium Level 1.9 mg/dl Total Bilirubin 0.7 mg/dl Aspartate Amino Transf (AST/SGOT) 35 U/L Alanine Aminotransferase (ALT/SGPT) 47 U/L Alkaline Phosphatase 103 U/L Total Protein 6.5 gm/dl Albumin 2.6 gm/dl Globulin 3.9 gm/dl Albumin/Globulin Ratio 0.7 Lipase 293 U/L Test 01/18/17 16:13 Assessment & Plan ACUTE / CHRONIC PANCREATITIS Initial lipase 359, but subsequently chloe as high as 2180. CT of abdomen and pelvis demonstrated infiltration of the fat surrounding the pancreatic head consistent with acute pancreatitis, no apparent mass, abscess, cyst, pseudocyst. GI consulted. Outpatient EUS recommended. Still experiencing significant epigastric pain. Lipase improved. Continue bowel rest, IV fluids, analgesics, antiemetics. Advance diet as tolerated. Taper analgesics as tolerated. ALCOHOL WITHDRAWAL Symptoms improved. Continue chlordiazepoxide per protocol. ALCOHOL ABUSE Thiamine daily. Offer counseling. CALLOWAY'S ESOPHAGUS Continue PPI. VTE PROPHYLAXIS No anticoagulants due to GI symptoms. SCD's. DISPOSITION Expected discharge to home. Family Medicine follow-up with Dr. Dhiraj Myers. . Current Inpatient Medications: Current Inpatient Medications Medications (Trade) Dose Ordered Sig/[facility] Route Start Time Stop Time Status Last Admin Dose Admin Ioversol (Optiray 320) 125 ml UD PRN IV 01/15/17 13:45 01/19/17 13:44 Acetaminophen (Tylenol Tab) 650 mg Q4H PRN PO 01/15/17 15:00 02/14/17 14:59 Ondansetron HCl (Zofran Inj) 4 mg Q6H PRN IV 01/15/17 15:00 02/14/17 14:59 01/15/17 15:26 4 MG Lactated Ringer's 1,000 ml @ 150 mls/hr Q6H40M IV 01/15/17 15:00 02/14/17 14:59 01/18/17 13:51 150 MLS/HR Thiamine HCl (Vitamin B-1 Tab) 100 mg DAILY PO 01/16/17 09:00 02/15/17 08:59 01/18/17 07:40 100 MG Lorazepam (Ativan Inj) PRN Dosing -Active Protocol Q1H PRN IV 01/15/17 15:00 02/14/17 14:59 01/18/17 09:44 3 MG Paroxetine HCl (pAXil TAB) 20 mg DAILY PO 01/16/17 09:00 02/15/17 08:59 01/18/17 07:40 20 MG Insulin Aspart (novoLOG ASPART) SLIDING SCALE If C... ACHS SC 01/15/17 16:00 02/14/17 15:59 01/18/17 16:19 1 UNITS Glucose (Glucose 40% Gel) 15-30 GRAMS 15 GRAMS... UD PRN PO 01/15/17 15:00 02/14/17 14:59 Glucose (Glucose Chew Tab) 4-8 Tablets 4 Tabl... UD PRN PO 01/15/17 15:00 02/14/17 14:59 Dextrose (Dextrose 50% 50ML Syringe) 25-50ML OF 50% DW IV FOR... UD PRN IV 01/15/17 15:00 02/14/17 14:59 Glucagon (Glucagon Inj) 1 mg UD PRN SQ 01/15/17 15:00 02/14/17 14:59 Miscellaneous Information (Consult Glycemic Management Pharmacy) 1 ea UD PRN N/A 01/15/17 15:04 02/14/17 15:03 Hydromorphone HCl (Dilaudid Inj) 2 mg Q2HWA PRN IV 01/15/17 21:15 01/29/17 21:14 01/18/17 16:15 2 MG Enteral Nutritional Formula (Boost Breeze Nutritional Drink) 1 box DAILY PO 01/19/17 09:00 02/18/17 08:59 Pantoprazole Sodium (Protonix Tab) 40 mg DAILY@1100 PO 01/19/17 11:00 02/18/17 10:59
[2017-01-19] VITALS: O2SAT 97
[2017-01-19] MEDS: HYDROmorphone INJ 2 MG/ML SYR/VIAL IV PRN ×8 (01:20→21:10)
[2017-01-19] MEDS: LACTATED RINGER'S 1000ML 1,000 ML IV SCH ×3 (03:37→11:11)
[2017-01-19 03:48] VITALS: BP 132/90; PULSE 88; TEMP 36.7; O2SAT 96
[2017-01-19 04:00] VITALS: O2SAT 96
[2017-01-19 05:36] LABS: BASO % 0.2 %; BASO ABS # 0.01 K/uL (0-0.2); COMPLETE YES; EOS % 5.4 %; HEMATOCRIT 41.1 % (42-52); LYMPH % 17.6 %; LYMPH ABS # 0.72 K/uL (1.2-3.4); MEAN CELL VOLUME 95.1 fL (80-100); MEAN CORPUSCULAR HEMOGLOBIN 32.9 pg (25-34); MEAN CORPUSCULAR HGB CONC 34.5 g/dl (32-36); MEAN PLATELET VOLUME 8.7 fL (7.4-10.4); MONO % 10.3 %; NEUT % 66.5 %; PLATELET COUNT 122 K/uL (130-400); RED BLOOD COUNT 4.32 M/uL (4.7-6.1); WHITE BLOOD COUNT 4.09 K/uL (4.8-10.8)
[2017-01-19 06:08] LABS: BUN/CREATININE RATIO 2.2 (10-20); CREATININE 0.85 mg/dl (0.60-1.40); MAGNESIUM 1.8 mg/dl (1.8-2.4); PHOSPHORUS 2.3 mg/dl (2.5-4.9); POTASSIUM 3.7 mmol/L (3.5-5.1)
[2017-01-19] MEDS: INSULIN ASPART 100 UNITS/ML 3 ML PEN SC SCH ×4 (07:00→21:10)
[2017-01-19] MEDS: LORAZEPAM 2 MG/ML 1 ML VIAL IV PRN (07:47)
[2017-01-19] MEDS: THIAMINE HCL 100 MG TAB PO SCH (07:48)
[2017-01-19] MEDS: BOOST BREEZE NUTRITION DRINK 1 BOX PO SCH (07:48)
[2017-01-19] MEDS: PAROXETINE 20 MG TAB PO SCH (07:48)
[2017-01-19 07:51] VITALS: BP 133/79; PULSE 89; TEMP 36.6; O2SAT 98
[2017-01-19] MEDS ORDERED: PANTOprazole SOD 40 MG TAB PO SCH (11:00)
[2017-01-19] MEDS: ONDANSETRON INJ 2 MG/ML 2 ML VIAL IV PRN (11:42)
[2017-01-19 12:09] VITALS: BP 143/87; PULSE 96; TEMP 36.5; O2SAT 97
[2017-01-19] MEDS: INSULIN GLARGINE SOLOSTAR 100 UNITS/ML 3 ML PEN SC SCH (13:30)
--- NOTE | 2017-01-19 13:51 | Pharmacy Progress Note ---
Glycemic: Assessment & Plan Date of Service Jan 19, 2017. Assessment & Plan Outpatient Anti-diabetic Regimen: * none * A1c = 7.3% (01/16/17) ASSESSMENT: * Patient admitted with acute pancreatitis. * Patient is a non-diagnosed diabetic, with current A1c 7.3%. (Improved from A1c 06/2016 of 9.2%). * BSGs have been fairly well-controlled with only sporadic correction, but have increased slightly the past 48 hours, as diet advances. * Fasting BSG >170 mg/dL past two days, so will initiate low dose of basal insulin at this time. Would like to see fairly tight glycemic control in a 41yo patient with pancreatitis. PLAN FOR INPATIENT GLYCEMIC CONTROL: * Basal insulin: * Lantus 5 units SQ QAM, first dose now -- hold if BSG less than 100mg/dL * Bolus insulin: * NovoLog SQ AC and HS, or q6H if NPO - CF: 30mg/dL/unit (based on weight and a stress of 1-2) - CR: 1 unit of insulin for every 10 gm CHO consumed - Goal: 100-140mg/dL DISCHARGE PLANNING: * Patient's current A1c (7.3%) is indicative of diabetes. * Patient would likely benefit from the addition of an oral anti-diabetic medication. * Might consider adding Metformin and follow-up with PCP. * Please note that the plan above was derived based on current level of insulin resistance and hospital stress. These recommendations are appropriate for inpatient admission only. Plan of care upon discharge will need to be reassessed to avoid potential outpatient hypo/hyperglycemia. Thank you.
--- NOTE | 2017-01-19 14:48 | Progress Note ---
Medicine Progress Note Date & Time of Visit: Jan 19, 2017 at 14:40 . Subjective Persistent epigastric pain. Nurses have noted that patient seems to be very sedated at times. Dilaudid frequency changed from 2 mg q 2 hrs to 2 mg q 3 hrs. Upset that he is not getting enough Dilaudid. Nausea, but no emesis. No diarrhea, melena, hematochezia. No fever. Occasional cough. No shortness of breath. No chest pain. . Objective Last 8 Hrs Date Time Temp Pulse Resp B/P (MAP) Pulse Ox O2 Delivery O2 Flow Rate FiO2 01/19/17 12:09 36.5 96 20 143/87 (105) 97 Room Air 01/19/17 07:51 36.6 89 19 133/79 (97) 98 Room Air Physical Exam: General- lying in bed, no acute distress Eyes- anicteric Neck- no JVD Lungs- clear to auscultation Heart- regular Abdomen- + bowel sounds, slightly distended, moderate epigastric tenderness Extremities- no pretibial edema or calf tenderness Neuro- alert, oriented, no apparent hallucinations . Laboratory Results: Last 24 Hours Test 01/18/17 16:13 01/18/17 19:58 01/19/17 05:15 01/19/17 06:31 Bedside Glucose 150 mg/dl 153 mg/dl 157 mg/dl White Blood Count 4.09 K/uL Red Blood Count 4.32 M/uL Hemoglobin 14.2 g/dL Hematocrit 41.1 % Mean Corpuscular Volume 95.1 fL Mean Corpuscular Hemoglobin 32.9 pg Mean Corpuscular Hemoglobin Concent 34.5 g/dl Platelet Count 122 K/uL Mean Platelet Volume 8.7 fL Neutrophils (%) (Auto) 66.5 % Lymphocytes (%) (Auto) 17.6 % Monocytes (%) (Auto) 10.3 % Eosinophils (%) (Auto) 5.4 % Basophils (%) (Auto) 0.2 % Neutrophils # (Auto) 2.72 K/uL Lymphocytes # (Auto) 0.72 K/uL Monocytes # (Auto) 0.42 K/uL Eosinophils # (Auto) 0.22 K/uL Basophils # (Auto) 0.01 K/uL RDW Standard Deviation 41.4 fL RDW Coefficient of Variation 12.0 % Immature Granulocyte % (Auto) 0.0 % Immature Granulocyte # (Auto) 0.00 K/uL Sodium Level 141 mmol/L Potassium Level 3.7 mmol/L Chloride Level 103 mmol/L Carbon Dioxide Level 34 mmol/L Anion Gap 4.0 mmol/L Blood Urea Nitrogen 2 mg/dl Creatinine 0.85 mg/dl Est Creatinine Clear Calc Drug Dose 139.4 ml/min Estimated GFR () 123.7 Estimated GFR (Non- 106.7 BUN/Creatinine Ratio 2.2 Random Glucose 170 mg/dl Calcium Level 9.0 mg/dl Phosphorus Level 2.3 mg/dl Magnesium Level 1.8 mg/dl Test 01/19/17 11:30 Bedside Glucose 141 mg/dl Assessment & Plan ACUTE / CHRONIC PANCREATITIS Initial lipase 359, but subsequently chloe as high as 2180. CT of abdomen and pelvis demonstrated infiltration of the fat surrounding the pancreatic head consistent with acute pancreatitis, no apparent mass, abscess, cyst, pseudocyst. GI consulted. Outpatient EUS recommended. Managed with bowel rest, IV fluids, analgesics, antiemetics. Still experiencing significant epigastric pain, but lipase improved and tachycardia improved. Advance diet as tolerated. Resume tramadol which patient takes at home. Taper hydromorphone as tolerated. ALCOHOL WITHDRAWAL Symptoms improved. Received chlordiazepoxide per protocol. ALCOHOL ABUSE Thiamine daily. Offer counseling. CALLOWAY'S ESOPHAGUS Continue PPI. DM TYPE 2 History of diabetes mellitus, apparently type 2 diet controlled (although at risk for type 1 disease with chronic pancreatitis). Not well-controlled. Hemoglobin A1c 9.2. Pharmacy consulted for glycemic management. VTE PROPHYLAXIS No anticoagulants due to GI symptoms. SCD's. DISPOSITION Expected discharge to home. Family Medicine follow-up with Dr. Dhiraj Myers. . Consultants: GI Pharmacy . Procedures: CT abdomen and pelvis Cardiac monitoring Intravenous fluids Intravenous medications . Current Inpatient Medications: Current Inpatient Medications Medications (Trade) Dose Ordered Sig/Carmita Route Start Time Stop Time Status Last Admin Dose Admin Acetaminophen (Tylenol Tab) 650 mg Q4H PRN PO 01/15/17 15:00 02/14/17 14:59 Ondansetron HCl (Zofran Inj) 4 mg Q6H PRN IV 01/15/17 15:00 02/14/17 14:59 01/19/17 11:42 4 MG Lactated Ringer's 1,000 ml @ 100 mls/hr Q10H IV 01/15/17 15:00 02/14/17 14:59 01/19/17 11:11 100 MLS/HR Thiamine HCl (Vitamin B-1 Tab) 100 mg DAILY PO 01/16/17 09:00 02/15/17 08:59 01/19/17 07:48 100 MG Lorazepam (Ativan Inj) PRN Dosing -Active Protocol Q1H PRN IV 01/15/17 15:00 02/14/17 14:59 01/19/17 07:47 1 MG Paroxetine HCl (pAXil TAB) 20 mg DAILY PO 01/16/17 09:00 02/15/17 08:59 01/19/17 07:48 20 MG Insulin Aspart (novoLOG ASPART) SLIDING SCALE If C... ACHS SC 01/15/17 16:00 02/14/17 15:59 01/19/17 07:00 3 UNITS Glucose (Glucose 40% Gel) 15-30 GRAMS 15 GRAMS... UD PRN PO 01/15/17 15:00 02/14/17 14:59 Glucose (Glucose Chew Tab) 4-8 Tablets 4 Tabl... UD PRN PO 01/15/17 15:00 02/14/17 14:59 Dextrose (Dextrose 50% 50ML Syringe) 25-50ML OF 50% DW IV FOR... UD PRN IV 01/15/17 15:00 02/14/17 14:59 Glucagon (Glucagon Inj) 1 mg UD PRN SQ 01/15/17 15:00 02/14/17 14:59 Miscellaneous Information (Consult Glycemic Management Pharmacy) 1 ea UD PRN N/A 01/15/17 15:04 02/14/17 15:03 Enteral Nutritional Formula (Boost Breeze Nutritional Drink) 1 box DAILY PO 01/19/17 09:00 02/18/17 08:59 01/19/17 07:48 1 BOX Pantoprazole Sodium (Protonix Tab) 40 mg DAILY@1100 PO 01/19/17 11:00 02/18/17 10:59 01/19/17 11:00 40 MG Hydromorphone HCl (Dilaudid Inj) 2 mg Q3H PRN IV 01/19/17 09:00 01/29/17 21:14 01/19/17 14:45 2 MG Insulin Glargine (Lantus Solostar Pen) 5 unit QAM SC 01/19/17 13:30 02/18/17 13:29 01/19/17 13:30 5 UNIT
[2017-01-19 16:05] VITALS: BP 143/87; PULSE 96; TEMP 36.5; O2SAT 97
[2017-01-19] MEDS: PANTOprazole SOD 40 MG TAB PO SCH (20:03)
[2017-01-20 00:01] VITALS: BP 114/72; PULSE 91; TEMP 36.8; O2SAT 96
[2017-01-20] MEDS: HYDROmorphone INJ 2 MG/ML SYR/VIAL IV PRN ×6 (02:11→22:04)
[2017-01-20 06:48] LABS: BASO % 0.5 %; BASO ABS # 0.02 K/uL (0-0.2); COMPLETE YES; EOS % 6.7 %; HEMATOCRIT 41.9 % (42-52); LYMPH % 21.1 %; LYMPH ABS # 0.85 K/uL (1.2-3.4); MEAN CELL VOLUME 93.9 fL (80-100); MEAN CORPUSCULAR HGB CONC 35.1 g/dl (32-36); MONO % 11.7 %; PLATELET COUNT 141 K/uL (130-400); RED BLOOD COUNT 4.46 M/uL (4.7-6.1); WHITE BLOOD COUNT 4.02 K/uL (4.8-10.8)
[2017-01-20 07:07] LABS: BUN/CREATININE RATIO 1.7 (10-20); CALCIUM 8.9 mg/dl (8.5-10.1); CREATININE 0.84 mg/dl (0.60-1.40); MAGNESIUM 2.1 mg/dl (1.8-2.4); POTASSIUM 3.4 mmol/L (3.5-5.1)
[2017-01-20 07:10] LABS: ALB/GLOB RATIO 0.7 (0.9-2)
[2017-01-20 07:35] VITALS: BP 128/83; PULSE 87; TEMP 36.7; O2SAT 97
[2017-01-20] MEDS ORDERED: HYDROmorphone INJ 1 MG/ML SYR IV ONE (07:45)
[2017-01-20] MEDS: BOOST BREEZE NUTRITION DRINK 1 BOX PO SCH (08:00)
[2017-01-20] MEDS: THIAMINE HCL 100 MG TAB PO SCH (08:03)
[2017-01-20] MEDS: PANTOprazole SOD 40 MG TAB PO SCH ×2 (08:03→19:42)
[2017-01-20] MEDS: PAROXETINE 20 MG TAB PO SCH (08:03)
[2017-01-20] MEDS: TRAMADOL HCL 50 MG TAB PO PRN (08:25)
[2017-01-20] MEDS: INSULIN ASPART 100 UNITS/ML 3 ML PEN SC SCH ×4 (08:32→22:05)
[2017-01-20] MEDS: INSULIN GLARGINE SOLOSTAR 100 UNITS/ML 3 ML PEN SC SCH (08:33)
--- NOTE | 2017-01-20 15:16 | DIAGNOSTIC IMAGING REPORT ---
DOUBLE CONTRAST UPPER GI SERIES CLINICAL HISTORY: Epigastric pain and burning. COMPARISON STUDY: Double contrast upper GI series February 02, 2011. FLUOROSCOPY TIME: 2.8 minutes. FINDINGS: 21 fluoroscopic images were obtained. Esophageal motility was normal. No esophageal mass or stricture was identified. No reflux was elicited. No hiatal hernia was identified. Gastric fold pattern was normal. Duodenum was unremarkable. IMPRESSION: Unremarkable double contrast upper GI series. Electronically signed by: Quinton Corrales M.D. 01/20/2017 3:15 PM Dictated Date/Time: 01/20/2017 3:10 PM
--- NOTE | 2017-01-20 15:24 | Gastroenterology Progress Note ---
Progress Note Date of Service: Jan 20, 2017 Subjective Pt evaluation today including: conversation w/ patient, conversation w/ family (visiting in his room), physical exam, chart review, lab review, review of studies, review of inpatient medication list Review of Systems Constitutional: No fever Respiratory: No cough Cardiac: No chest pain Abdomen: + pain (epigastric pressure) Neuro: No memory loss Psych: No depression symptoms Heme: No abnormal bleeding/bruising Endo: + fatigue (sleeping a lot) Skin: No rash, No jaundice Medications Current Inpatient Medications Medications (Trade) Dose Ordered Sig/Carmita Route Start Time Stop Time Status Last Admin Dose Admin Acetaminophen (Tylenol Tab) 650 mg Q4H PRN PO 01/15/17 15:00 02/14/17 14:59 Ondansetron HCl (Zofran Inj) 4 mg Q6H PRN IV 01/15/17 15:00 02/14/17 14:59 01/19/17 11:42 4 MG Thiamine HCl (Vitamin B-1 Tab) 100 mg DAILY PO 01/16/17 09:00 02/15/17 08:59 01/20/17 08:03 100 MG Lorazepam (Ativan Inj) PRN Dosing -Active Protocol Q1H PRN IV 01/15/17 15:00 02/14/17 14:59 01/19/17 07:47 1 MG Paroxetine HCl (pAXil TAB) 20 mg DAILY PO 01/16/17 09:00 02/15/17 08:59 01/20/17 08:03 20 MG Insulin Aspart (novoLOG ASPART) SLIDING SCALE If C... ACHS SC 01/15/17 16:00 02/14/17 15:59 01/20/17 08:32 1 UNITS Glucose (Glucose 40% Gel) 15-30 GRAMS 15 GRAMS... UD PRN PO 01/15/17 15:00 02/14/17 14:59 Glucose (Glucose Chew Tab) 4-8 Tablets 4 Tabl... UD PRN PO 01/15/17 15:00 02/14/17 14:59 Dextrose (Dextrose 50% 50ML Syringe) 25-50ML OF 50% DW IV FOR... UD PRN IV 01/15/17 15:00 02/14/17 14:59 Glucagon (Glucagon Inj) 1 mg UD PRN SQ 01/15/17 15:00 02/14/17 14:59 Miscellaneous Information (Consult Glycemic Management Pharmacy) 1 ea UD PRN N/A 01/15/17 15:04 02/14/17 15:03 Enteral Nutritional Formula (Boost Breeze Nutritional Drink) 1 box DAILY PO 01/19/17 09:00 02/18/17 08:59 01/19/17 07:48 1 BOX Hydromorphone HCl (Dilaudid Inj) 2 mg Q3H PRN IV 01/19/17 09:00 01/29/17 21:14 01/20/17 10:52 2 MG Insulin Glargine (Lantus Solostar Pen) 5 unit QAM SC 01/19/17 13:30 02/18/17 13:29 01/20/17 08:33 5 UNIT Pantoprazole Sodium (Protonix Tab) 40 mg BID PO 01/19/17 20:00 02/18/17 20:59 01/20/17 08:03 40 MG Tramadol HCl (Ultram Tab) 50 mg Q4H PRN PO 01/19/17 15:00 02/18/17 14:59 01/20/17 08:25 50 MG Objective Vital Signs Date Time Temp Pulse Resp B/P (MAP) Pulse Ox O2 Delivery O2 Flow Rate FiO2 01/20/17 07:39 Room Air 01/20/17 07:35 36.7 87 18 128/83 (98) 97 Room Air 01/20/17 00:01 36.8 91 18 114/72 (86) 96 Room Air 01/20/17 00:00 Room Air 01/19/17 16:05 36.5 96 20 97 01/19/17 16:00 Room Air Physical Exam General Appearance: + pertinent finding (though pt c/o pain, was sleeping the 2 times I entered the room) Neck: thyroid normal, no JVD Respiratory/Chest: lungs clear Cardiovascular: regular rate, rhythm, no JVD, no murmur Abdomen: soft, + tenderness (moderate epigastric tenderness) Extremities: non-tender, no pedal edema, no calf tenderness Neurologic/Psych: alert, normal mood/affect, oriented x 3 Skin: no jaundice Laboratory Results Last 24 Hours Test 01/19/17 16:07 01/19/17 20:01 01/20/17 06:16 01/20/17 07:54 Bedside Glucose 146 mg/dl 145 mg/dl 147 mg/dl White Blood Count 4.02 K/uL Red Blood Count 4.46 M/uL Hemoglobin 14.7 g/dL Hematocrit 41.9 % Mean Corpuscular Volume 93.9 fL Mean Corpuscular Hemoglobin 33.0 pg Mean Corpuscular Hemoglobin Concent 35.1 g/dl Platelet Count 141 K/uL Mean Platelet Volume 9.0 fL Neutrophils (%) (Auto) 60.0 % Lymphocytes (%) (Auto) 21.1 % Monocytes (%) (Auto) 11.7 % Eosinophils (%) (Auto) 6.7 % Basophils (%) (Auto) 0.5 % Neutrophils # (Auto) 2.41 K/uL Lymphocytes # (Auto) 0.85 K/uL Monocytes # (Auto) 0.47 K/uL Eosinophils # (Auto) 0.27 K/uL Basophils # (Auto) 0.02 K/uL RDW Standard Deviation 40.2 fL RDW Coefficient of Variation 11.9 % Immature Granulocyte % (Auto) 0.0 % Immature Granulocyte # (Auto) 0.00 K/uL Sodium Level 139 mmol/L Potassium Level 3.4 mmol/L Chloride Level 101 mmol/L Carbon Dioxide Level 31 mmol/L Anion Gap 7.0 mmol/L Blood Urea Nitrogen 1 mg/dl Creatinine 0.84 mg/dl Est Creatinine Clear Calc Drug Dose 141.0 ml/min Estimated GFR () 124.3 Estimated GFR (Non- 107.2 BUN/Creatinine Ratio 1.7 Random Glucose 148 mg/dl Calcium Level 8.9 mg/dl Magnesium Level 2.1 mg/dl Total Bilirubin 0.7 mg/dl Aspartate Amino Transf (AST/SGOT) 24 U/L Alanine Aminotransferase (ALT/SGPT) 37 U/L Alkaline Phosphatase 92 U/L Total Protein 6.7 gm/dl Albumin 2.7 gm/dl Globulin 4.0 gm/dl Albumin/Globulin Ratio 0.7 Lipase 214 U/L Assessment and Plan Mr. Zeng is 41 yr old male admitted with acute pancreatitis as evidenced by mild changes of pancreatitis on CT, as well as lipase > 2000. Mr. Zeng continues to c/o pain though resolution of lipase elevation. He describes the pain as epigastric pressure. At times is asleep but when wakened he c/o pain. This is suggestive of a chronic pain issue. Plan: 1. Would limit narcotic use. 2. UGI series today to r/o ulcer disease. 3. Consider pain management consult. 4. EUS in 6-8 weeks. Our office will contact him (order was placed in [facility]). 5. If still concern regarding possible ulcer disease (though symptoms are not real suggestive of that), GI could provide EGD on Monday. I saw and evaluated the patient. He underwent an upper GI series this afternoon , results are still pending. He does continue to have epigastric discomfort but has had several upper endoscopic procedures in the past without any specific findings. At this point, we would recommend continued abstinence and supportive care. Please call with any questions or concerns
[2017-01-20 16:26] VITALS: BP 123/87; PULSE 82; TEMP 36.4; O2SAT 96
--- NOTE | 2017-01-20 21:19 | Progress Note ---
Medicine Progress Note Date & Time of Visit: Jan 20, 2017 at 09:47 . Subjective Persistent epigastric pain and nausea. Patient very dissatisfied. Apparently saline lock and left arm infiltrated and patient not receive full dose of hydromorphone this morning. No diarrhea, melena, hematochezia. No fever. Occasional cough, no shortness of breath. No chest pain. . Objective Last 8 Hrs Date Time Temp Pulse Resp B/P (MAP) Pulse Ox O2 Delivery O2 Flow Rate FiO2 01/20/17 07:39 Room Air 01/20/17 07:35 36.7 87 18 128/83 (98) 97 Room Air Physical Exam: General- lying in bed, no acute distress Eyes- anicteric Neck- no JVD Lungs- clear to auscultation Heart- regular Abdomen- + bowel sounds, nondistended, moderate epigastric tenderness without rebound Extremities- no pretibial edema or calf tenderness Neuro- alert, oriented . Laboratory Results: Last 24 Hours Test 01/19/17 11:30 01/19/17 16:07 01/19/17 20:01 01/20/17 06:16 Bedside Glucose 141 mg/dl 146 mg/dl 145 mg/dl White Blood Count 4.02 K/uL Red Blood Count 4.46 M/uL Hemoglobin 14.7 g/dL Hematocrit 41.9 % Mean Corpuscular Volume 93.9 fL Mean Corpuscular Hemoglobin 33.0 pg Mean Corpuscular Hemoglobin Concent 35.1 g/dl Platelet Count 141 K/uL Mean Platelet Volume 9.0 fL Neutrophils (%) (Auto) 60.0 % Lymphocytes (%) (Auto) 21.1 % Monocytes (%) (Auto) 11.7 % Eosinophils (%) (Auto) 6.7 % Basophils (%) (Auto) 0.5 % Neutrophils # (Auto) 2.41 K/uL Lymphocytes # (Auto) 0.85 K/uL Monocytes # (Auto) 0.47 K/uL Eosinophils # (Auto) 0.27 K/uL Basophils # (Auto) 0.02 K/uL RDW Standard Deviation 40.2 fL RDW Coefficient of Variation 11.9 % Immature Granulocyte % (Auto) 0.0 % Immature Granulocyte # (Auto) 0.00 K/uL Sodium Level 139 mmol/L Potassium Level 3.4 mmol/L Chloride Level 101 mmol/L Carbon Dioxide Level 31 mmol/L Anion Gap 7.0 mmol/L Blood Urea Nitrogen 1 mg/dl Creatinine 0.84 mg/dl Est Creatinine Clear Calc Drug Dose 141.0 ml/min Estimated GFR () 124.3 Estimated GFR (Non- 107.2 BUN/Creatinine Ratio 1.7 Random Glucose 148 mg/dl Calcium Level 8.9 mg/dl Magnesium Level 2.1 mg/dl Total Bilirubin 0.7 mg/dl Aspartate Amino Transf (AST/SGOT) 24 U/L Alanine Aminotransferase (ALT/SGPT) 37 U/L Alkaline Phosphatase 92 U/L Total Protein 6.7 gm/dl Albumin 2.7 gm/dl Globulin 4.0 gm/dl Albumin/Globulin Ratio 0.7 Lipase 214 U/L Test 01/20/17 07:54 Bedside Glucose 147 mg/dl Assessment & Plan ACUTE / CHRONIC PANCREATITIS Initial lipase 359, but subsequently chloe as high as 2180. CT of abdomen and pelvis demonstrated infiltration of the fat surrounding the pancreatic head consistent with acute pancreatitis, no apparent mass, abscess, cyst, pseudocyst. GI consulted. Outpatient EUS recommended. Managed with bowel rest, IV fluids, analgesics, antiemetics. Still experiencing significant epigastric pain, but lipase normalized and tachycardia improved. Will ask GI to reassess. Advance diet as tolerated. Resumed tramadol which patient takes at home. Taper hydromorphone as tolerated. ALCOHOL WITHDRAWAL Symptoms improved. Received chlordiazepoxide per protocol. ALCOHOL ABUSE Thiamine daily. Offer counseling. CALLOWAY'S ESOPHAGUS Continue PPI. DM TYPE 2 History of diabetes mellitus, apparently type 2 diet controlled (although at risk for type 1 disease with chronic pancreatitis). Not well-controlled. Hemoglobin A1c 9.2. Pharmacy consulted for glycemic management. CHRONIC PAIN Patient has history of chronic pain with various musculoskeletal symptoms as well as abdominal pain. He has had numerous visits for pain to ED's, primary care clinic, and pain management. Old records reviewed. He had termination of analgesic agreement in [facility] about 2 years ago. He has also been dismissed from [facility]. Need to avoid excessive medications and taper analgesics discussed at length. VTE PROPHYLAXIS No anticoagulants due to GI symptoms. SCD's. DISPOSITION Expected discharge to home. Family Medicine follow-up with Dr. Dhiraj Myers. . Consultants: GI Pharmacy . Procedures: CT abdomen and pelvis Cardiac monitoring Intravenous fluids Intravenous medications . Current Inpatient Medications: Current Inpatient Medications Medications (Trade) Dose Ordered Sig/Carmita Route Start Time Stop Time Status Last Admin Dose Admin Acetaminophen (Tylenol Tab) 650 mg Q4H PRN PO 01/15/17 15:00 02/14/17 14:59 Ondansetron HCl (Zofran Inj) 4 mg Q6H PRN IV 01/15/17 15:00 02/14/17 14:59 01/19/17 11:42 4 MG Thiamine HCl (Vitamin B-1 Tab) 100 mg DAILY PO 01/16/17 09:00 02/15/17 08:59 01/20/17 08:03 100 MG Lorazepam (Ativan Inj) PRN Dosing -Active Protocol Q1H PRN IV 01/15/17 15:00 02/14/17 14:59 01/19/17 07:47 1 MG Paroxetine HCl (pAXil TAB) 20 mg DAILY PO 01/16/17 09:00 02/15/17 08:59 01/20/17 08:03 20 MG Insulin Aspart (novoLOG ASPART) SLIDING SCALE If C... ACHS SC 01/15/17 16:00 02/14/17 15:59 01/20/17 08:32 1 UNITS Glucose (Glucose 40% Gel) 15-30 GRAMS 15 GRAMS... UD PRN PO 01/15/17 15:00 02/14/17 14:59 Glucose (Glucose Chew Tab) 4-8 Tablets 4 Tabl... UD PRN PO 01/15/17 15:00 02/14/17 14:59 Dextrose (Dextrose 50% 50ML Syringe) 25-50ML OF 50% DW IV FOR... UD PRN IV 01/15/17 15:00 02/14/17 14:59 Glucagon (Glucagon Inj) 1 mg UD PRN SQ 01/15/17 15:00 02/14/17 14:59 Miscellaneous Information (Consult Glycemic Management Pharmacy) 1 ea UD PRN N/A 01/15/17 15:04 02/14/17 15:03 Enteral Nutritional Formula (Boost Breeze Nutritional Drink) 1 box DAILY PO 01/19/17 09:00 02/18/17 08:59 01/19/17 07:48 1 BOX Hydromorphone HCl (Dilaudid Inj) 2 mg Q3H PRN IV 01/19/17 09:00 01/29/17 21:14 01/20/17 06:10 2 MG Insulin Glargine (Lantus Solostar Pen) 5 unit QAM SC 01/19/17 13:30 02/18/17 13:29 01/20/17 08:33 5 UNIT Pantoprazole Sodium (Protonix Tab) 40 mg BID PO 01/19/17 20:00 02/18/17 20:59 01/20/17 08:03 40 MG Tramadol HCl (Ultram Tab) 50 mg Q4H PRN PO 01/19/17 15:00 02/18/17 14:59 01/20/17 08:25 50 MG
[2017-01-20 22:49] VITALS: BP 126/84; PULSE 88; TEMP 36.5; O2SAT 94
[2017-01-21] MEDS: HYDROmorphone INJ 2 MG/ML SYR/VIAL IV PRN ×8 (01:18→23:38)
[2017-01-21] MEDS: ONDANSETRON INJ 2 MG/ML 2 ML VIAL IV PRN (04:22)
[2017-01-21 06:58] VITALS: BP 104/68; PULSE 89; TEMP 36.8; O2SAT 97
[2017-01-21 07:17] LABS: HEMATOCRIT 44.1 % (42-52); MEAN CELL VOLUME 94.2 fL (80-100); MEAN CORPUSCULAR HEMOGLOBIN 32.3 pg (25-34); MEAN CORPUSCULAR HGB CONC 34.2 g/dl (32-36); MEAN PLATELET VOLUME 8.9 fL (7.4-10.4); PLATELET COUNT 165 K/uL (130-400); RED BLOOD COUNT 4.68 M/uL (4.7-6.1)
[2017-01-21] MEDS: THIAMINE HCL 100 MG TAB PO SCH (07:27)
[2017-01-21] MEDS: BOOST BREEZE NUTRITION DRINK 1 BOX PO SCH (07:27)
[2017-01-21] MEDS: PAROXETINE 20 MG TAB PO SCH (07:27)
[2017-01-21] MEDS: PANTOprazole SOD 40 MG TAB PO SCH ×2 (07:27→20:26)
[2017-01-21 07:46] LABS: CREATININE 0.95 mg/dl (0.60-1.40)
[2017-01-21 07:47] LABS: CALCIUM 9.1 mg/dl (8.5-10.1); POTASSIUM 3.3 mmol/L (3.5-5.1)
[2017-01-21 08:00] VITALS: O2SAT 97
[2017-01-21] MEDS: INSULIN ASPART 100 UNITS/ML 3 ML PEN SC SCH ×4 (08:55→20:29)
[2017-01-21] MEDS: INSULIN GLARGINE SOLOSTAR 100 UNITS/ML 3 ML PEN SC SCH (08:57)
[2017-01-21] MEDS ORDERED: POTASSIUM CHLORIDE 10 MEQ TABCR PO ONE (10:00)
[2017-01-21] MEDS ORDERED: INSULIN GLARGINE SOLOSTAR 100 UNITS/ML 3 ML PEN SC ONE (12:00)
[2017-01-21] MEDS: POTASSIUM CHLORIDE 10 MEQ TABCR PO SCH ×2 (13:06→20:27)
[2017-01-21] MEDS: ARTIFICIAL TEARS OP SOLN OPB PRN ×4 (13:09→20:23)
--- NOTE | 2017-01-21 15:04 | Pharmacy Progress Note ---
Glycemic: Assessment & Plan Date of Service Jan 21, 2017. Assessment & Plan * The patient is currently receiving 8-10 units of insulin per day. BSGs ranging 127 - 212 mg/dl over the past 24hrs. * Pt's po intake is increasing today. Consider this in addition to an elevated FBG this morning will increase Lantus. * Continue Novolog parameters. INPATIENT GLYCEMIC PLAN: * Basal insulin: Increase - Lantus 10 units every morning * Correctional Insulin: Novolog Correction per scale ACHS Goal Range: Low 100 mg/dL - High 140 mg/dL Continue - Correction Factor: 30 mg/dL/unit * Prandial insulin: Continue - Per carb ratio of 1 unit per 10 grams CHO consumed Pharmacy will continue to monitor patient daily and write orders per [facility] inpatient glycemic control protocol. Thanks. * Please note that the plan above was derived based on current level of insulin resistance and hospital stress. These recommendations are appropriate for inpatient admission only. Plan of care upon discharge will need to be reassessed to avoid potential outpatient hypo/hyperglycemia.
[2017-01-21 15:34] VITALS: BP 103/68; PULSE 79; TEMP 36.6; O2SAT 93
[2017-01-21 16:00] VITALS: O2SAT 97
--- NOTE | 2017-01-21 20:13 | Progress Note ---
Medicine Progress Note Date & Time of Visit: Jan 21, 2017 at 10:00 . Subjective Episode of nausea and vomiting during the night. Better this morning. Tolerate clear liquids for breakfast. Still has epigastric pain. No bowel movement. No fever. Occasional cough. Objective Last 8 Hrs Date Time Temp Pulse Resp B/P (MAP) Pulse Ox O2 Delivery O2 Flow Rate FiO2 01/21/17 16:00 97 Room Air 01/21/17 15:34 36.6 79 18 103/68 (80) 93 Room Air Physical Exam: General- lying in bed, no acute distress Eyes- anicteric Neck- no JVD Lungs- clear to auscultation Heart- regular Abdomen- + bowel sounds, slightly distended, moderate epigastric tenderness without rebound Extremities- no pretibial edema or calf tenderness Neuro- alert, oriented . Laboratory Results: Last 24 Hours Test 01/21/17 06:48 01/21/17 07:47 01/21/17 11:56 01/21/17 16:31 White Blood Count 3.70 K/uL Red Blood Count 4.68 M/uL Hemoglobin 15.1 g/dL Hematocrit 44.1 % Mean Corpuscular Volume 94.2 fL Mean Corpuscular Hemoglobin 32.3 pg Mean Corpuscular Hemoglobin Concent 34.2 g/dl RDW Standard Deviation 41.1 fL RDW Coefficient of Variation 12.1 % Platelet Count 165 K/uL Mean Platelet Volume 8.9 fL Sodium Level 137 mmol/L Potassium Level 3.3 mmol/L Chloride Level 99 mmol/L Carbon Dioxide Level 32 mmol/L Anion Gap 6.0 mmol/L Blood Urea Nitrogen 2 mg/dl Creatinine 0.95 mg/dl Est Creatinine Clear Calc Drug Dose 124.7 ml/min Estimated GFR () 113.2 Estimated GFR (Non- 97.6 BUN/Creatinine Ratio 2.0 Random Glucose 212 mg/dl Calcium Level 9.1 mg/dl Bedside Glucose 206 mg/dl 117 mg/dl 149 mg/dl Assessment & Plan ACUTE / CHRONIC PANCREATITIS Initial lipase 359, but subsequently chloe as high as 2180. CT of abdomen and pelvis demonstrated infiltration of the fat surrounding the pancreatic head consistent with acute pancreatitis, no apparent mass, abscess, cyst, pseudocyst. GI consulted. Outpatient EUS recommended. Managed with bowel rest, IV fluids, analgesics, antiemetics. Still experiencing significant epigastric pain, but lipase normalized and tachycardia improved. Asked GI to reassess. UGI series did not show any PUD or other abnormalities. More distended today. May have ileus. Taper hydromorphone as tolerated. ALCOHOL WITHDRAWAL Symptoms improved. Received chlordiazepoxide per protocol. ALCOHOL ABUSE Thiamine daily. Offer counseling. CALLOWAY'S ESOPHAGUS Continue PPI. DM TYPE 2 History of diabetes mellitus, apparently type 2 diet controlled (although at risk for type 1 disease with chronic pancreatitis). Not well-controlled. Hemoglobin A1c 9.2. Pharmacy consulted for glycemic management. CHRONIC PAIN Patient has history of chronic pain with various musculoskeletal symptoms as well as abdominal pain. He has had numerous visits for pain to ED's, primary care clinic, and pain management. Old records reviewed. He had termination of analgesic agreement in [facility] about 2 years ago. He has also been dismissed from [facility]. Need to avoid excessive medications and taper analgesics discussed at length. VTE PROPHYLAXIS No anticoagulants due to GI symptoms. SCD's. DISPOSITION Expected discharge to home. Family Medicine follow-up with Dr. Dhiraj Myers. . Consultants: GI Pharmacy . Procedures: CT abdomen and pelvis Cardiac monitoring Intravenous fluids Intravenous medications . Current Inpatient Medications: Current Inpatient Medications Medications (Trade) Dose Ordered Sig/Carmita Route Start Time Stop Time Status Last Admin Dose Admin Acetaminophen (Tylenol Tab) 650 mg Q4H PRN PO 01/15/17 15:00 02/14/17 14:59 Ondansetron HCl (Zofran Inj) 4 mg Q6H PRN IV 01/15/17 15:00 02/14/17 14:59 01/21/17 04:22 4 MG Thiamine HCl (Vitamin B-1 Tab) 100 mg DAILY PO 01/16/17 09:00 02/15/17 08:59 01/21/17 07:27 100 MG Lorazepam (Ativan Inj) PRN Dosing -Active Protocol Q1H PRN IV 01/15/17 15:00 02/14/17 14:59 01/19/17 07:47 1 MG Paroxetine HCl (pAXil TAB) 20 mg DAILY PO 01/16/17 09:00 02/15/17 08:59 01/21/17 07:27 20 MG Insulin Aspart (novoLOG ASPART) SLIDING SCALE If C... ACHS SC 01/15/17 16:00 7/11/17 15:59 01/21/17 18:12 1 UNITS Glucose (Glucose 40% Gel) 15-30 GRAMS 15 GRAMS... UD PRN PO 01/15/17 15:00 02/14/17 14:59 Glucose (Glucose Chew Tab) 4-8 Tablets 4 Tabl... UD PRN PO 01/15/17 15:00 02/14/17 14:59 Dextrose (Dextrose 50% 50ML Syringe) 25-50ML OF 50% DW IV FOR... UD PRN IV 01/15/17 15:00 02/14/17 14:59 Glucagon (Glucagon Inj) 1 mg UD PRN SQ 01/15/17 15:00 02/14/17 14:59 Miscellaneous Information (Consult Glycemic Management Pharmacy) 1 ea UD PRN N/A 01/15/17 15:04 02/14/17 15:03 Enteral Nutritional Formula (Boost Breeze Nutritional Drink) 1 box DAILY PO 01/19/17 09:00 02/18/17 08:59 01/21/17 07:27 1 BOX Hydromorphone HCl (Dilaudid Inj) 2 mg Q3H PRN IV 01/19/17 09:00 01/29/17 21:14 01/21/17 17:17 2 MG Pantoprazole Sodium (Protonix Tab) 40 mg BID PO 01/19/17 20:00 02/18/17 20:59 01/21/17 07:27 40 MG Tramadol HCl (Ultram Tab) 50 mg Q4H PRN PO 01/19/17 15:00 02/18/17 14:59 01/20/17 08:25 50 MG Potassium Chloride (Klor-Con M10) 10 meq TID PO 01/21/17 14:00 02/20/17 13:59 01/21/17 13:06 10 MEQ Insulin Glargine (Lantus Solostar Pen) 10 unit QAM SC 01/22/17 08:00 02/21/17 07:59 Artificial Tears (Artificial Tears) 2 drops QID PRN OPB 01/21/17 12:30 02/20/17 12:29 01/21/17 13:09 2 DROPS
[2017-01-21 23:10] VITALS: BP 109/71; PULSE 85; TEMP 36.6; O2SAT 96
[2017-01-22] MEDS: HYDROmorphone INJ 2 MG/ML SYR/VIAL IV PRN ×7 (04:10→23:30)
[2017-01-22] MEDS: THIAMINE HCL 100 MG TAB PO SCH (07:22)
[2017-01-22] MEDS: POTASSIUM CHLORIDE 10 MEQ TABCR PO SCH ×3 (07:22→19:56)
[2017-01-22] MEDS: PANTOprazole SOD 40 MG TAB PO SCH ×2 (07:22→19:55)
[2017-01-22] MEDS: PAROXETINE 20 MG TAB PO SCH (07:22)
[2017-01-22] MEDS: BOOST BREEZE NUTRITION DRINK 1 BOX PO SCH (07:23)
[2017-01-22 07:51] VITALS: BP 107/74; PULSE 86; TEMP 36.7; O2SAT 95
[2017-01-22 08:00] VITALS: O2SAT 95
[2017-01-22] MEDS ORDERED: INSULIN GLARGINE SOLOSTAR 100 UNITS/ML 3 ML PEN SC SCH (08:00)
[2017-01-22 08:08] LABS: HEMATOCRIT 43.7 % (42-52); MEAN CELL VOLUME 94.6 fL (80-100); MEAN CORPUSCULAR HEMOGLOBIN 32.5 pg (25-34); MEAN CORPUSCULAR HGB CONC 34.3 g/dl (32-36); MEAN PLATELET VOLUME 9.1 fL (7.4-10.4); PLATELET COUNT 181 K/uL (130-400); RED BLOOD COUNT 4.62 M/uL (4.7-6.1); WHITE BLOOD COUNT 3.66 K/uL (4.8-10.8)
[2017-01-22 08:48] LABS: ALKALINE PHOSPHATASE 89 U/L (45-117); ALT/SGPT 37 U/L (12-78); AST/SGOT 37 U/L (15-37); BLOOD UREA NITROGEN 3 mg/dl (7-18); BUN/CREATININE RATIO 2.6 (10-20); CALCIUM 9.2 mg/dl (8.5-10.1); CARBON DIOXIDE 31 mmol/L (21-32); CHLORIDE 102 mmol/L (98-107); GLUCOSE 233 mg/dl (70-99); SODIUM 138 mmol/L (136-145)
[2017-01-22] MEDS: INSULIN ASPART 100 UNITS/ML 3 ML PEN SC SCH ×4 (09:17→20:30)
[2017-01-22] MEDS: INSULIN GLARGINE SOLOSTAR 100 UNITS/ML 3 ML PEN SC SCH (09:18)
--- NOTE | 2017-01-22 09:24 | Progress Note ---
Medicine Progress Note Date & Time of Visit: Jan 22, 2017 at 08:50 . Subjective No fever. Occasional cough. No SOB. Persistent abdominal pain and nausea. Could only tolerate about 1/2 of full liquid breakfast. Passing flatus, no stool. Urinating without difficulty. Ambulating. . Objective Last 8 Hrs Date Time Temp Pulse Resp B/P (MAP) Pulse Ox O2 Delivery O2 Flow Rate FiO2 01/22/17 08:00 95 Room Air 01/22/17 07:51 36.7 86 20 107/74 (85) 95 Room Air Physical Exam: General- lying in bed, no acute distress Eyes- anicteric Neck- no JVD Lungs- clear to auscultation Heart- regular Abdomen- + bowel sounds, moderately distended, moderate diffuse tenderness without rebound Extremities- no pretibial edema or calf tenderness Neuro- alert, oriented . Laboratory Results: Last 24 Hours Test 01/21/17 11:56 01/21/17 16:31 01/21/17 19:41 01/22/17 07:45 Bedside Glucose 117 mg/dl 149 mg/dl 163 mg/dl White Blood Count 3.66 K/uL Red Blood Count 4.62 M/uL Hemoglobin 15.0 g/dL Hematocrit 43.7 % Mean Corpuscular Volume 94.6 fL Mean Corpuscular Hemoglobin 32.5 pg Mean Corpuscular Hemoglobin Concent 34.3 g/dl RDW Standard Deviation 41.1 fL RDW Coefficient of Variation 12.1 % Platelet Count 181 K/uL Mean Platelet Volume 9.1 fL Sodium Level 138 mmol/L Potassium Level 4.0 mmol/L Chloride Level 102 mmol/L Carbon Dioxide Level 31 mmol/L Anion Gap 5.0 mmol/L Blood Urea Nitrogen 3 mg/dl Creatinine 1.00 mg/dl Est Creatinine Clear Calc Drug Dose 118.4 ml/min Estimated GFR () 106.4 Estimated GFR (Non- 91.8 BUN/Creatinine Ratio 2.6 Random Glucose 233 mg/dl Calcium Level 9.2 mg/dl Total Bilirubin 0.3 mg/dl Direct Bilirubin mg/dl Aspartate Amino Transf (AST/SGOT) 37 U/L Alanine Aminotransferase (ALT/SGPT) 37 U/L Alkaline Phosphatase 89 U/L Total Protein 7.0 gm/dl Albumin 2.6 gm/dl Lipase 209 U/L Chemistry Specimen Hemolysis Test 01/22/17 08:10 01/22/17 08:41 Bedside Glucose 197 mg/dl Assessment & Plan ACUTE / CHRONIC PANCREATITIS Initial lipase 359, but subsequently chloe as high as 2180. CT of abdomen and pelvis demonstrated infiltration of the fat surrounding the pancreatic head consistent with acute pancreatitis, no apparent mass, abscess, cyst, pseudocyst. GI consulted. Outpatient EUS recommended. Managed with bowel rest, IV fluids, analgesics, antiemetics. Still experiencing significant epigastric pain, but lipase normalized and tachycardia improved. Asked GI to reassess. UGI series did not show any PUD or other abnormalities. Persistent abdominal pain. Lipase today 209. More distended. May have ileus. Taper hydromorphone as tolerated. Try IV acetaminophen x 3 doses with hopes of decreasing need for hydromorphone. ALCOHOL WITHDRAWAL Symptoms improved. Received chlordiazepoxide per protocol. ALCOHOL ABUSE Thiamine daily. Offer counseling. CALLOWAY'S ESOPHAGUS Continue PPI. DM TYPE 2 History of diabetes mellitus, apparently type 2 diet controlled (although at risk for type 1 disease with chronic pancreatitis). Not well-controlled. Hemoglobin A1c 9.2. Pharmacy consulted for glycemic management. FBS this morning = 192. CHRONIC PAIN Patient has history of chronic pain with various musculoskeletal symptoms as well as abdominal pain. He has had numerous visits for pain to ED's, primary care clinic, and pain management. Old records reviewed. He had termination of analgesic agreement in [facility] about 2 years ago. He has also been dismissed from [facility]. Need to avoid excessive medications and taper analgesics discussed at length. VTE PROPHYLAXIS No anticoagulants due to GI symptoms. SCD's. Ambulate. DISPOSITION Expected discharge to home. Family Medicine follow-up with Dr. Dhiraj Myers. . Consultants: GI Pharmacy . Procedures: CT abdomen and pelvis Cardiac monitoring Intravenous fluids Intravenous medications . Current Inpatient Medications: Current Inpatient Medications Medications (Trade) Dose Ordered Sig/Carmita Route Start Time Stop Time Status Last Admin Dose Admin Acetaminophen (Tylenol Tab) 650 mg Q4H PRN PO 01/15/17 15:00 02/14/17 14:59 Ondansetron HCl (Zofran Inj) 4 mg Q6H PRN IV 01/15/17 15:00 02/14/17 14:59 01/21/17 04:22 4 MG Thiamine HCl (Vitamin B-1 Tab) 100 mg DAILY PO 01/16/17 09:00 02/15/17 08:59 01/22/17 07:22 100 MG Lorazepam (Ativan Inj) PRN Dosing -Active Protocol Q1H PRN IV 01/15/17 15:00 02/14/17 14:59 01/19/17 07:47 1 MG Paroxetine HCl (pAXil TAB) 20 mg DAILY PO 01/16/17 09:00 02/15/17 08:59 01/22/17 07:22 20 MG Insulin Aspart (novoLOG ASPART) SLIDING SCALE If C... ACHS SC 01/15/17 16:00 02/14/17 15:59 01/22/17 09:17 4 UNITS Glucose (Glucose 40% Gel) 15-30 GRAMS 15 GRAMS... UD PRN PO 01/15/17 15:00 02/14/17 14:59 Glucose (Glucose Chew Tab) 4-8 Tablets 4 Tabl... UD PRN PO 01/15/17 15:00 02/14/17 14:59 Dextrose (Dextrose 50% 50ML Syringe) 25-50ML OF 50% DW IV FOR... UD PRN IV 01/15/17 15:00 02/14/17 14:59 Glucagon (Glucagon Inj) 1 mg UD PRN SQ 01/15/17 15:00 02/14/17 14:59 Miscellaneous Information (Consult Glycemic Management Pharmacy) 1 ea UD PRN N/A 01/15/17 15:04 02/14/17 15:03 Enteral Nutritional Formula (Boost Breeze Nutritional Drink) 1 box DAILY PO 01/19/17 09:00 02/18/17 08:59 01/22/17 07:23 1 BOX Hydromorphone HCl (Dilaudid Inj) 2 mg Q3H PRN IV 01/19/17 09:00 01/29/17 21:14 01/22/17 07:22 2 MG Pantoprazole Sodium (Protonix Tab) 40 mg BID PO 01/19/17 20:00 02/18/17 20:59 01/22/17 07:22 40 MG Tramadol HCl (Ultram Tab) 50 mg Q4H PRN PO 01/19/17 15:00 02/18/17 14:59 01/20/17 08:25 50 MG Potassium Chloride (Klor-Con M10) 10 meq TID PO 01/21/17 14:00 02/20/17 13:59 01/22/17 07:22 10 MEQ Artificial Tears (Artificial Tears) 2 drops QID PRN OPB 01/21/17 12:30 02/20/17 12:29 01/21/17 20:23 2 DROPS Insulin Glargine (Lantus Solostar Pen) 13 unit QAM SC 01/22/17 09:15 02/21/17 09:14 01/22/17 09:18 13 UNIT
[2017-01-22] MEDS: ACETAMINOPHEN IV 1,000 MG in EMPTY BAG 0 ML IV SCH ×2 (10:38→18:41)
--- NOTE | 2017-01-22 14:25 | Pharmacy Progress Note ---
Glycemic: Assessment & Plan Date of Service Jan 22, 2017. Assessment & Plan * BSGs ranging 117 - 233 mg/dl over the past 24hrs. FBG this morning was 197 mg /dl on POC and 233 mg/dl on random [employer]. * Insulin needs have increased with advancement of diet. * BSGs chloe overnight: 163 --> 197 mg/dl. This indicates too weak basal rate. Will increase Lantus 25%. * No change to Novolog parameters are necessary. PLAN FOR INPATIENT GLYCEMIC REGIMEN: * Basal insulin: Increase - Lantus 13 units qAM * Correctional Insulin: Novolog Correction per scale ACHS Goal Range: Low 100 mg/dL - High 140 mg/dL Continue - Correction Factor: 30 mg/dL/unit * Prandial insulin: Continue - Per carb ratio of 1 unit per 10 grams CHO consumed Pharmacy will continue to monitor patient daily and write orders per [facility] inpatient glycemic control protocol. Thanks. * Please note that the plan above was derived based on current level of insulin resistance and hospital stress. These recommendations are appropriate for inpatient admission only. Plan of care upon discharge will need to be reassessed to avoid potential outpatient hypo/hyperglycemia.
[2017-01-22 15:01] VITALS: BP 105/69; PULSE 72; TEMP 36.5; O2SAT 96
[2017-01-22 16:00] VITALS: O2SAT 95
[2017-01-22 23:09] VITALS: BP 106/72; PULSE 67; TEMP 36.5; O2SAT 95
[2017-01-23] MEDS: ACETAMINOPHEN IV 1,000 MG in EMPTY BAG 0 ML IV SCH (02:25)
[2017-01-23] MEDS: HYDROmorphone INJ 2 MG/ML SYR/VIAL IV PRN ×7 (02:49→21:03)
[2017-01-23 07:09] VITALS: BP 102/74; PULSE 72; TEMP 36.5; O2SAT 97
[2017-01-23 08:00] VITALS: O2SAT 97
[2017-01-23] MEDS: BOOST BREEZE NUTRITION DRINK 1 BOX PO SCH (08:00)
[2017-01-23] MEDS: PANTOprazole SOD 40 MG TAB PO SCH ×2 (08:49→20:17)
[2017-01-23] MEDS: THIAMINE HCL 100 MG TAB PO SCH (08:49)
[2017-01-23] MEDS: POTASSIUM CHLORIDE 10 MEQ TABCR PO SCH ×3 (08:49→20:18)
[2017-01-23] MEDS: PAROXETINE 20 MG TAB PO SCH (08:49)
[2017-01-23] MEDS: INSULIN ASPART 100 UNITS/ML 3 ML PEN SC SCH ×4 (08:59→21:14)
[2017-01-23] MEDS: INSULIN GLARGINE SOLOSTAR 100 UNITS/ML 3 ML PEN SC SCH (09:00)
[2017-01-23] MEDS: ARTIFICIAL TEARS OP SOLN OPB PRN ×2 (09:22)
--- NOTE | 2017-01-23 09:47 | Gastroenterology Progress Note ---
Progress Note Date of Service: Jan 23, 2017 Subjective Pt evaluation today including: conversation w/ patient, physical exam, chart review, lab review Pt was seen and evaluated this AM. Still experiencing upper abdominal pain located in the epigastric region with radiation to both upper quadrants. This is aggravated by any PO intake (food or fluid) UGI serious overall negative. Denies fever, chills, chest pain, SOB. Tell me he has a new cough x 2 days that is non-productive. Denies any URI s/s. Adviased to discuss with primary team. Biggest concern in his pain. He tells me he used to get Dilaudid 2 mg every 1-2 hours and this cotrolled his pain, but now is only getting this mediations every three hours. UGI 01/20/17: Esophageal motility was normal. No esophageal mass or stricture was identified. No reflux was elicited. No hiatal hernia was identified. Gastric fold pattern was normal. Duodenum was unremarkable. Review of Systems Constitutional: No fever, No chills Respiratory: + cough Cardiac: No chest pain Abdomen: + pain, + nausea, No vomiting, No diarrhea, No constipation, No GI bleeding Medications Current Inpatient Medications Medications (Trade) Dose Ordered Sig/Carmita Route Start Time Stop Time Status Last Admin Dose Admin Acetaminophen (Tylenol Tab) 650 mg Q4H PRN PO 01/15/17 15:00 02/14/17 14:59 Ondansetron HCl (Zofran Inj) 4 mg Q6H PRN IV 01/15/17 15:00 02/14/17 14:59 01/21/17 04:22 4 MG Thiamine HCl (Vitamin B-1 Tab) 100 mg DAILY PO 01/16/17 09:00 02/15/17 08:59 01/23/17 08:49 100 MG Lorazepam (Ativan Inj) PRN Dosing -Active Protocol Q1H PRN IV 01/15/17 15:00 02/14/17 14:59 01/19/17 07:47 1 MG Paroxetine HCl (pAXil TAB) 20 mg DAILY PO 01/16/17 09:00 02/15/17 08:59 01/23/17 08:49 20 MG Insulin Aspart (novoLOG ASPART) SLIDING SCALE If C... ACHS SC 01/15/17 16:00 02/14/17 15:59 01/23/17 08:59 2 UNITS Glucose (Glucose 40% Gel) 15-30 GRAMS 15 GRAMS... UD PRN PO 01/15/17 15:00 02/14/17 14:59 Glucose (Glucose Chew Tab) 4-8 Tablets 4 Tabl... UD PRN PO 01/15/17 15:00 02/14/17 14:59 Dextrose (Dextrose 50% 50ML Syringe) 25-50ML OF 50% DW IV FOR... UD PRN IV 01/15/17 15:00 02/14/17 14:59 Glucagon (Glucagon Inj) 1 mg UD PRN SQ 01/15/17 15:00 02/14/17 14:59 Miscellaneous Information (Consult Glycemic Management Pharmacy) 1 ea UD PRN N/A 01/15/17 15:04 02/14/17 15:03 Enteral Nutritional Formula (Boost Breeze Nutritional Drink) 1 box DAILY PO 01/19/17 09:00 02/18/17 08:59 01/22/17 07:23 1 BOX Hydromorphone HCl (Dilaudid Inj) 2 mg Q3H PRN IV 01/19/17 09:00 01/29/17 21:14 01/23/17 08:54 2 MG Pantoprazole Sodium (Protonix Tab) 40 mg BID PO 01/19/17 20:00 02/18/17 20:59 01/23/17 08:49 40 MG Tramadol HCl (Ultram Tab) 50 mg Q4H PRN PO 01/19/17 15:00 02/18/17 14:59 01/20/17 08:25 50 MG Potassium Chloride (Klor-Con M10) 10 meq TID PO 01/21/17 14:00 02/20/17 13:59 01/23/17 08:49 10 MEQ Artificial Tears (Artificial Tears) 2 drops QID PRN OPB 01/21/17 12:30 02/20/17 12:29 01/23/17 09:22 2 DROPS Insulin Glargine (Lantus Solostar Pen) 13 unit QAM SC 01/22/17 09:15 02/21/17 09:14 01/23/17 09:00 13 UNIT Objective Vital Signs Date Time Temp Pulse Resp B/P (MAP) Pulse Ox O2 Delivery O2 Flow Rate FiO2 01/23/17 08:00 97 Room Air 01/23/17 07:09 36.5 72 20 102/74 (83) 97 Room Air 01/23/17 00:00 Room Air 01/22/17 23:09 36.5 67 20 106/72 (83) 95 Room Air 01/22/17 16:00 95 Room Air 01/22/17 15:01 36.5 72 16 105/69 (81) 96 Room Air Physical Exam General Appearance: no apparent distress Eyes: PERRL ENT: hearing grossly normal Neck: supple Respiratory/Chest: lungs clear, normal breath sounds Cardiovascular: regular rate, rhythm Abdomen: soft, no organomegaly, + tenderness (epigastric and upper abodminal quadrants, no lower abdominal pain) Neurologic/Psych: alert, normal mood/affect, oriented x 3 Skin: normal color, no jaundice, warm/dry Laboratory Results Last 24 Hours Test 01/22/17 11:45 01/22/17 16:18 01/22/17 20:03 01/23/17 07:37 Bedside Glucose 130 mg/dl 103 mg/dl 112 mg/dl 179 mg/dl Assessment and Plan Mr. Zeng is 41 yr old male admitted with acute pancreatitis as evidenced by mild changes of pancreatitis on CT, as well as lipase > 2000. He continues to c/ o pain though resolution of lipase elevation. He describes the pain as epigastric pressure. At times is asleep but when wakened he c/o pain. This is suggestive of a chronic pain issue. UGI series overall negative. NPO for EGD 01/24/17 to rule out acute process causing epigastric pain --> likely a component of chronic pain Limit narcotic use. Consider pain management consult. Thiamine daily ETOH abstinence EUS in 6-8 weeks. Our office will contact him (order was placed in [facility]). I saw and evaluated the patient. We will repeat an EGD (UGI negative) for evaluation of his discomfort. I suspect his pain is related to chronic pancreatitis and would suggest alcohol and tobacco abstinance.
--- NOTE | 2017-01-23 10:42 | Pharmacy Progress Note ---
Glycemic Control: Progress Nt Date of Service Jan 23, 2017. Scope Glycemic Pharmacist consulted by Dr Lind on 01/15/17 for glycemic control and to write orders per [facility] inpatient glycemic control protocol. Objective Accuchecks BSG (last 24hrs): Test 01/22/17 11:45 01/22/17 16:18 01/22/17 20:03 01/23/17 07:37 Bedside Glucose 130 mg/dl (70-99) 103 mg/dl (70-99) 112 mg/dl (70-99) 179 mg/dl (70-99) HbA1c: Test 01/16/17 05:50 Hemoglobin A1c 7.3 % (4.5-5.6) H Recent Pertinent Medications Outpatient Anti-diabetic Regimen: * None The patient is currently receiving: * Basal insulin: Lantus 13 units every 24 hours * Correctional Insulin: Novolog Correction per scale ACHS Goal Range: Low 100 mg/dL - High 140 mg/dL Correction Factor: 30 mg/dL/unit * Prandial insulin: Per carb ratio of 1 unit per 10 grams CHO consumed Risk Factors for Insulin Resistance: * Diet: Full liquid/ type 2 diabetes -> to be NPO for EGD on 01/24 Assessment & Plan ASSESSMENT: 01/22/17 * BSGs ranging 117 - 233 mg/dl over the past 24hrs. FBG this morning was 197 mg /dl on POC and 233 mg/dl on random INTENSIVE CARE NURSE. * Insulin needs have increased with advancement of diet. * BSGs chloe overnight: 163 --> 197 mg/dl. This indicates too weak basal rate. Will increase Lantus 25%. * No change to Novolog parameters are necessary 01/23/17 * Patient is currently receiving an average of 24 units of insulin per day * 13 units of basal insulin * 11 units of prandial/correctional insulin * BSGs ranging 103-179 over the past 24hrs * Anticipating insulin regimen will need decreased for the next 24hrs d/t : * Patient being NPO for EGD tomorrow * Will plan to reduce basal dose by ~30% for tomorrow only * Post-prandial BSGs lower yesterday with the increase in basal so will plan to loosen the carb ratio as well - will do this today PLAN FOR INPATIENT GLYCEMIC CONTROL: * Continue Lantus 13 units qAM but reduce to 9 units tomorrow for NPO status * Continue correction factor of 30 mg/dl/unit * Change carb ratio to 1 unit per 15 grams CHO consumed * Continue goal range of Low 100 mg/dL - High 140 mg/dL * Please note that the plan above was derived based on current level of insulin resistance and hospital stress. These recommendations are appropriate for inpatient admission only. Plan of care upon discharge will need to be reassessed to avoid potential outpatient hypo/hyperglycemia. Thank you.
[2017-01-23 15:40] VITALS: BP 125/74; PULSE 69; TEMP 36.7; O2SAT 96
[2017-01-23 16:00] VITALS: O2SAT 95
--- NOTE | 2017-01-23 22:21 | Progress Note ---
Medicine Progress Note Date & Time of Visit: Jan 23, 2017 at 14:50 . Subjective No fever. Occasional nonproductive cough, no dyspnea. No chest pain. Ongoing nausea and epigastric pain. Bowel movements yesterday and today without apparent melena or hematochezia. Ambulating. . Objective Last 8 Hrs Date Time Temp Pulse Resp B/P (MAP) Pulse Ox O2 Delivery O2 Flow Rate FiO2 01/23/17 16:00 95 Room Air 01/23/17 15:40 36.7 69 18 125/74 (91) 96 Room Air Physical Exam: General- no acute distress Eyes- anicteric Neck- no JVD Lungs- clear to auscultation Heart- regular Abdomen- + bowel sounds, moderately distended, mild diffuse tenderness without rebound Extremities- no pretibial edema or calf tenderness; SCDs applied Neuro- alert, oriented . Laboratory Results: Last 24 Hours Test 01/23/17 07:37 01/23/17 11:57 01/23/17 16:39 01/23/17 20:26 Bedside Glucose 179 mg/dl 77 mg/dl 162 mg/dl 180 mg/dl Assessment & Plan ACUTE / CHRONIC PANCREATITIS Initial lipase 359, but subsequently chloe as high as 2180. CT of abdomen and pelvis demonstrated infiltration of the fat surrounding the pancreatic head consistent with acute pancreatitis, no apparent mass, abscess, cyst, pseudocyst. GI consulted. Outpatient EUS recommended. Managed with bowel rest, IV fluids, analgesics, antiemetics. Persistent abdominal pain- consider other etiologies as discussed below. Lipase 01/22 209. Probable ileus- either from pancreatitis or narcotic analgesics. Taper hydromorphone as tolerated. EPIGASTRIC PAIN Pancreatitis as noted above. UGI series did not show any apparent PUD or other abnormalities. EGD planned for tomorrow. ALCOHOL WITHDRAWAL Symptoms improved. Received chlordiazepoxide per protocol. ALCOHOL ABUSE Thiamine daily. Offer counseling. CALLOWAY'S ESOPHAGUS Continue PPI. DM TYPE 2 History of diabetes mellitus, apparently type 2 diet controlled (although at risk for type 1 disease with chronic pancreatitis). Not well-controlled. Hemoglobin A1c 9.2. Pharmacy consulted for glycemic management. FBS this morning = 179. CHRONIC PAIN Patient has history of chronic pain with various musculoskeletal symptoms as well as abdominal pain. He has had numerous visits for pain to ED's, primary care clinic, and pain management. Old records reviewed. He had termination of analgesic agreement in [facility] about 2 years ago. He has also been dismissed from [facility]. Need to avoid excessive medications and taper analgesics discussed at length. VTE PROPHYLAXIS No anticoagulants due to GI symptoms. SCD's. Ambulate. DISPOSITION Expected discharge to home. Family Medicine follow-up with Dr. Dhiraj Myers. . Consultants: GI Pharmacy . Procedures: CT abdomen and pelvis Cardiac monitoring Intravenous fluids Intravenous medications . Current Inpatient Medications: Current Inpatient Medications Medications (Trade) Dose Ordered Sig/Carmita Route Start Time Stop Time Status Last Admin Dose Admin Acetaminophen (Tylenol Tab) 650 mg Q4H PRN PO 01/15/17 15:00 02/14/17 14:59 Ondansetron HCl (Zofran Inj) 4 mg Q6H PRN IV 01/15/17 15:00 02/14/17 14:59 01/21/17 04:22 4 MG Thiamine HCl (Vitamin B-1 Tab) 100 mg DAILY PO 01/16/17 09:00 02/15/17 08:59 01/23/17 08:49 100 MG Lorazepam (Ativan Inj) PRN Dosing -Active Protocol Q1H PRN IV 01/15/17 15:00 02/14/17 14:59 01/19/17 07:47 1 MG Paroxetine HCl (pAXil TAB) 20 mg DAILY PO 01/16/17 09:00 02/15/17 08:59 01/23/17 08:49 20 MG Insulin Aspart (novoLOG ASPART) SLIDING SCALE If C... ACHS SC 01/15/17 16:00 02/14/17 15:59 01/23/17 21:14 2 UNITS Glucose (Glucose 40% Gel) 15-30 GRAMS 15 GRAMS... UD PRN PO 01/15/17 15:00 02/14/17 14:59 Glucose (Glucose Chew Tab) 4-8 Tablets 4 Tabl... UD PRN PO 01/15/17 15:00 02/14/17 14:59 Dextrose (Dextrose 50% 50ML Syringe) 25-50ML OF 50% DW IV FOR... UD PRN IV 01/15/17 15:00 02/14/17 14:59 Glucagon (Glucagon Inj) 1 mg UD PRN SQ 01/15/17 15:00 02/14/17 14:59 Miscellaneous Information (Consult Glycemic Management Pharmacy) 1 ea UD PRN N/A 01/15/17 15:04 02/14/17 15:03 Hydromorphone HCl (Dilaudid Inj) 2 mg Q3H PRN IV 01/19/17 09:00 01/29/17 21:14 01/23/17 21:03 2 MG Pantoprazole Sodium (Protonix Tab) 40 mg BID PO 01/19/17 20:00 02/18/17 20:59 01/23/17 20:17 40 MG Tramadol HCl (Ultram Tab) 50 mg Q4H PRN PO 01/19/17 15:00 02/18/17 14:59 01/20/17 08:25 50 MG Potassium Chloride (Klor-Con M10) 10 meq TID PO 01/21/17 14:00 02/20/17 13:59 01/23/17 20:18 10 MEQ Artificial Tears (Artificial Tears) 2 drops QID PRN OPB 01/21/17 12:30 02/20/17 12:29 01/23/17 09:22 2 DROPS Insulin Glargine (Lantus Solostar Pen) 13 unit QAM SC 01/22/17 09:15 02/21/17 09:14 Future hold 01/23/17 09:00 13 UNIT Insulin Glargine (Lantus Solostar Pen) 9 unit QAM SC 01/24/17 08:00 01/24/17 08:01 Enteral Nutritional Formula (Boost Glucose Control) 1 can QDL PO 01/24/17 12:00 02/23/17 11:59 Insulin Aspart (novoLOG ASPART) SLIDING SCALE If C... 0200 ONCE SC 01/24/17 02:00 01/24/17 02:01
[2017-01-23 23:20] VITALS: BP 117/78; PULSE 73; TEMP 36.6; O2SAT 100
[2017-01-24] MEDS: HYDROmorphone INJ 2 MG/ML SYR/VIAL IV PRN ×7 (00:17→22:30)
[2017-01-24] MEDS ORDERED: INSULIN ASPART 100 UNITS/ML 3 ML PEN SC ONE (02:00)
[2017-01-24 06:57] LABS: HEMATOCRIT 45.1 % (42-52); MEAN CELL VOLUME 94.7 fL (80-100); MEAN CORPUSCULAR HGB CONC 34.8 g/dl (32-36); MEAN PLATELET VOLUME 9.1 fL (7.4-10.4); PLATELET COUNT 237 K/uL (130-400); RED BLOOD COUNT 4.76 M/uL (4.7-6.1); WHITE BLOOD COUNT 4.37 K/uL (4.8-10.8)
[2017-01-24 07:28] LABS: CALCIUM 9.4 mg/dl (8.5-10.1); CREATININE 0.9 mg/dl (0.60-1.40); POTASSIUM 3.9 mmol/L (3.5-5.1)
[2017-01-24 07:29] VITALS: BP 109/72; PULSE 76; TEMP 36.7; O2SAT 99
[2017-01-24] MEDS: POTASSIUM CHLORIDE 10 MEQ TABCR PO SCH ×3 (07:45→19:33)
[2017-01-24] MEDS: THIAMINE HCL 100 MG TAB PO SCH (07:46)
[2017-01-24] MEDS ORDERED: INSULIN GLARGINE SOLOSTAR 100 UNITS/ML 3 ML PEN SC SCH (08:00)
[2017-01-24] MEDS: INSULIN ASPART 100 UNITS/ML 3 ML PEN SC SCH ×4 (08:16→21:37)
[2017-01-24] MEDS ORDERED: PROPOFOL IV EMULSION 10 MG/ML 20 ML VIAL IV ONE (09:29)
[2017-01-24] MEDS ORDERED: LIDOCAINE HCL 2% 2 ML VIAL (20MG/ML) ONE (09:29)
[2017-01-24 09:47] VITALS: BP 109/72; PULSE 76; TEMP 36.7; O2SAT 99
[2017-01-24] MEDS ORDERED: EpHEDrine SULFATE INJ 50 MG/ML AMP IV PRN (10:00)
[2017-01-24] MEDS ORDERED: ATROPINE SULFATE 0.1 MG/ML 5ML SYR IV PRN (10:00)
[2017-01-24] MEDS ORDERED: FENTANYL CITRATE INJ 50 MCG/1 ML 2 ML VIAL ONE (10:21)
--- NOTE | 2017-01-24 10:32 | Pharmacy Progress Note ---
Glycemic Control: Progress Nt Date of Service Jan 24, 2017. Scope Glycemic Pharmacist consulted by Dr Lind on 01/15 for glycemic control and to write orders per [facility] inpatient glycemic control protocol. Objective Accuchecks BSG (last 24hrs): Test 01/23/17 11:57 01/23/17 16:39 01/23/17 20:26 01/24/17 01:54 Bedside Glucose 77 mg/dl (70-99) 162 mg/dl (70-99) 180 mg/dl (70-99) 136 mg/dl (70-99) Test 01/24/17 06:25 01/24/17 07:56 Random Glucose 141 mg/dl (70-99) Bedside Glucose 142 mg/dl (70-99) Laboratory Data (last 24hrs) Test 01/24/17 06:25 Anion Gap 5.0 mmol/L BUN/Creatinine Ratio 6.0 Blood Urea Nitrogen 5 mg/dl Creatinine 0.90 mg/dl Potassium Level 3.9 mmol/L Sodium Level 139 mmol/L White Blood Count 4.37 K/uL HbA1c: Test 01/16/17 05:50 Hemoglobin A1c 7.3 % (4.5-5.6) H Recent Pertinent Medications Outpatient Anti-diabetic Regimen: * None The patient is currently receiving: * Basal insulin: Lantus 13 units every 24 hours * Correctional Insulin: Novolog Correction per scale ACHS Goal Range: Low 100 mg/dL - High 140 mg/dL Correction Factor: 30 mg/dL/unit * Prandial insulin: Per carb ratio of 1 unit per 15 grams CHO consumed Risk Factors for Insulin Resistance: * Diet: NPO for EGD this AM Assessment & Plan ASSESSMENT: 01/22/17 * BSGs ranging 117 - 233 mg/dl over the past 24hrs. FBG this morning was 197 mg /dl on POC and 233 mg/dl on random [employer]HE[employer]. * Insulin needs have increased with advancement of diet. * BSGs chloe overnight: 163 --> 197 mg/dl. This indicates too weak basal rate. Will increase Lantus 25%. * No change to Novolog parameters are necessary 01/23/17 * Patient is currently receiving an average of 24 units of insulin per day * 13 units of basal insulin * 11 units of prandial/correctional insulin * BSGs ranging 103-179 over the past 24hrs * Anticipating insulin regimen will need decreased for the next 24hrs d/t : * Patient being NPO for EGD tomorrow * Will plan to reduce basal dose by ~30% for tomorrow only * Post-prandial BSGs lower yesterday with the increase in basal so will plan to loosen the carb ratio as well - will do this today 01/24/17 * Patient is currently receiving an average of 18 units of insulin per day * 13 units of basal insulin * 5 units of correctional insulin only yesterday - no po intake documented * BSGs ranging 77-180 over the past 24hrs * Lantus dose reduced this AM as patient to be NPO for EGD * Based on yesterday's doses and zero/minimal po intake, patient could have most likely tolerated the 13 units of Lantus * He did have one "almost hypoglycemic" episode yesterday but remainder of BSGs were at or above goal, so I'm hesitant to adjust dose because of this PLAN FOR INPATIENT GLYCEMIC CONTROL: * Resume Lantus 13 units qAM after today * Continue correction factor of 30 mg/dl/unit * Continue carb ratio of 1 unit per 15 grams CHO consumed * Continue goal range of Low 100 mg/dL - High 140 mg/dL DISCHARGE RECOMMENDATIONS: * A1c above goal for patient's age/comorbidities * Patient was on metformin previously but was stopped due to improved BSG control - as per CDE note * Recommend resuming metformin for improved BSG control (although may want to wait until abdominal pain issue resolves d/t side effects of metformin) Thank you.
--- NOTE | 2017-01-24 10:35 | GI REPORT ---
Procedure Date: 01/24/2017 10:07 AM Procedure: Upper GI endoscopy Indications: Epigastric abdominal pain Medicines: Monitored Anesthesia Care Complications: No immediate complications. Estimated blood loss: Minimal. Estimated Blood Loss: Estimated blood loss was minimal. Procedure: Pre-Anesthesia Assessment: - Prior to the procedure, a History and Physical was performed, and patient medications, allergies and sensitivities were reviewed. The patient's tolerance of previous anesthesia was reviewed. - The risks and benefits of the procedure and the sedation options and risks were discussed with the patient. All questions were answered and informed consent was obtained. - Patient identification and proposed procedure were verified prior to the procedure by the physician, the nurse and the technical mgr. The procedure was verified in the procedure room. - Pre-procedure physical examination revealed no contraindications to sedation. - ASA Grade Assessment: III - A patient with severe systemic disease. - After reviewing the risks and benefits, the patient was deemed in satisfactory condition to undergo the procedure. - The anesthesia plan was to use monitored anesthesia care (MAC). - Immediately prior to administration of medications, the patient was re-assessed for adequacy to receive sedatives. - The heart rate, respiratory rate, oxygen saturations, blood pressure, adequacy of pulmonary ventilation, and response to care were monitored throughout the procedure. - The physical status of the patient was re-assessed after the procedure. After obtaining informed consent, the endoscope was passed under direct vision. Throughout the procedure, the patient's blood pressure, pulse, and oxygen saturations were monitored continuously. The Scope was introduced through the mouth, and advanced to the third part of duodenum. The upper GI endoscopy was accomplished without difficulty. The patient tolerated the procedure well. Findings: The examined esophagus was normal. The Z-line was regular and was found 41 cm from the incisors. Diffuse moderate inflammation characterized by congestion (edema), erythema and granularity was found in the entire examined stomach. Biopsies were taken with a cold forceps for histology. Estimated blood loss was minimal. Multiple 5 to 7 mm semi-sessile polyps with no bleeding and no stigmata of recent bleeding were found in the gastric body. Biopsies were taken with a cold forceps for histology. Estimated blood loss was minimal. The examined duodenum was normal. Biopsies for histology were taken with a cold forceps for evaluation of celiac disease. Estimated blood loss was minimal. Impression: - Normal esophagus. - Z-line regular, 41 cm from the incisors. - Diffuse gastritis, likely medication related. Biopsied. - Multiple gastric polyps. Biopsied. - Normal examined duodenum. Biopsied. Recommendation: - [facility]. - Advance diet as tolerated today. - Await pathology results. - Try a sucralfate suspension 1 gram PO BID for 6 to 8 weeks. - Avoid alcohol consumption. Deborah Molina D.O. Deborah Molina, 01/24/2017 10:34:54 AM This report has been signed electronically. Note Initiated On: 01/24/2017 10:07 AM I attest to the content of the Intraoperative Record and orders documented therein, exceptions below
--- NOTE | 2017-01-24 10:49 | Anesthesiology Progress Note ---
Anesthesia Post Op Note Date & Time Jan 24, 2017 at 10:49 Vital Signs Pain Intensity: 0 Vital Signs Past 12 Hours Date Time Temp Pulse Resp B/P (MAP) Pulse Ox O2 Delivery O2 Flow Rate FiO2 01/24/17 10:36 93 16 110/80 (90) 97 Room Air 01/24/17 09:52 37.1 62 20 129/85 (100) 96 Room Air 01/24/17 09:47 36.7 76 16 109/72 99 Room Air 01/24/17 07:40 Room Air 01/24/17 07:29 36.7 76 16 109/72 (84) 99 Room Air 01/24/17 00:00 Room Air 01/23/17 23:20 36.6 73 18 117/78 (91) 100 Room Air Notes Mental Status: alert / awake / arousable, participated in evaluation Pt Amnestic to Procedure: Yes Nausea / Vomiting: adequately controlled Pain: adequately controlled Airway Patency, RR, SpO2: stable & adequate BP & HR: stable & adequate Hydration State: stable & adequate Anesthetic Complications: no major complications apparent
[2017-01-24] MEDS: PANTOprazole SOD 40 MG TAB PO SCH ×2 (11:20→19:33)
[2017-01-24] MEDS: PAROXETINE 20 MG TAB PO SCH (11:20)
[2017-01-24 11:32] VITALS: BP 108/73; PULSE 67; TEMP 36.6; O2SAT 97
[2017-01-24] MEDS: BOOST GLUCOSE CONTROL PO SCH (12:07)
--- NOTE | 2017-01-24 15:00 | Progress Note ---
Internal Med Progress Note Date of Service: Jan 24, 2017. Provider Documentation: SUBJECTIVE: s/p egd today has pain below his ribs and epigastric region wants to eat later as he just had egd afebrile no sob OBJECTIVE: Vital Signs-as noted below Exam: General-alert and oriented. Not in distress ENT-normal hearing Neck-no neck masses Lungs-cta b/l no wheezing or crackles Heart-s1 and s2 heard regular no murmurs Abdomen-soft bowel sounds present tenderness in epigastric region no distension Extremities-no edema no erythema Neuro-alert and oriented moves extremities Lab data as noted below. ASSESSMENT & PLAN: ACUTE / CHRONIC PANCREATITIS Initial lipase 359, but subsequently chloe as high as 2180. CT of abdomen and pelvis demonstrated infiltration of the fat surrounding the pancreatic head consistent with acute pancreatitis, no apparent mass, abscess, cyst, pseudocyst. GI on board and outpatient EUS recommended. was on bowel rest, IV fluids, analgesics, antiemetics. Persistent abdominal pain- consider other etiologies as discussed below. advancing diet as tolerated EPIGASTRIC PAIN Pancreatitis as noted above. UGI series did not show any apparent PUD or other abnormalities. s/p EGD today- multiple gastric polyps- biopsies taken GI recommends sucralfate for 6-8 weeks ALCOHOL WITHDRAWAL Symptoms improved. Received chlordiazepoxide per protocol. stable ALCOHOL ABUSE Thiamine daily. Offer counseling. CALLOWAY'S ESOPHAGUS Continue PPI. DM TYPE 2 History of diabetes mellitus, apparently type 2 diet controlled (although at risk for type 1 disease with chronic pancreatitis). Uncontrolled HBA1c 9.2. Pharmacy consulted for glycemic management. Will monitor. CHRONIC PAIN Hx of chronic pain with various musculoskeletal symptoms as well as abdominal pain. HX of numerous visits for pain to ED's, primary care clinic, and pain management. Old records reviewed by : "He had termination of analgesic agreement in [facility] about 2 years ago. He has also been dismissed from [facility]". Will taper narcotics No narcotics on discharge VTE PROPHYLAXIS SCD's. Ambulate. DISPOSITION To be determined pt/ot Family Medicine follow-up with Dr. Dhiraj Myers. . Consultants: GI Pharmacy . Vital Signs: Date Time Temp Pulse Resp B/P (MAP) Pulse Ox O2 Delivery O2 Flow Rate FiO2 01/24/17 11:32 36.6 67 16 108/73 (85) 97 Room Air 01/24/17 11:06 69 16 119/62 (81) 97 Room Air 01/24/17 10:51 75 16 122/87 (99) 100 Room Air 01/24/17 10:36 93 16 110/80 (90) 97 Room Air 01/24/17 09:52 37.1 62 20 129/85 (100) 96 Room Air 01/24/17 09:47 36.7 76 16 109/72 99 Room Air 01/24/17 07:40 Room Air 01/24/17 07:29 36.7 76 16 109/72 (84) 99 Room Air 01/24/17 00:00 Room Air 01/23/17 23:20 36.6 73 18 117/78 (91) 100 Room Air 01/23/17 16:00 95 Room Air 01/23/17 15:40 36.7 69 18 125/74 (91) 96 Room Air Lab Results: Results Past 24 Hours Test 01/23/17 16:39 01/23/17 20:26 01/24/17 01:54 01/24/17 06:25 Range/Units Bedside Glucose 162 180 136 70-99 mg/dl White Blood Count 4.37 4.8-10.8 K/uL Red Blood Count 4.76 4.7-6.1 M/uL Hemoglobin 15.7 14.0-18.0 g/dL Hematocrit 45.1 42-52 % Mean Corpuscular Volume 94.7 80-100 fL Mean Corpuscular Hemoglobin 33.0 25-34 pg Mean Corpuscular Hemoglobin Concent 34.8 32-36 g/dl RDW Standard Deviation 41.8 36.4-46.3 fL RDW Coefficient of Variation 12.0 11.5-14.5 % Platelet Count 237 130-400 K/uL Mean Platelet Volume 9.1 7.4-10.4 fL Sodium Level 139 136-145 mmol/L Potassium Level 3.9 3.5-5.1 mmol/L Chloride Level 103 98-107 mmol/L Carbon Dioxide Level 31 21-32 mmol/L Anion Gap 5.0 3-11 mmol/L Blood Urea Nitrogen 5 7-18 mg/dl Creatinine 0.90 0.60-1.40 mg/dl Est Creatinine Clear Calc Drug Dose 131.6 ml/min Estimated GFR () 120.8 Estimated GFR (Non- 104.2 BUN/Creatinine Ratio 6.0 -20 Random Glucose 141 70-99 mg/dl Calcium Level 9.4 8.5-10.1 mg/dl Test 01/24/17 07:56 01/24/17 11:25 Range/Units Bedside Glucose 142 136 70-99 mg/dl
[2017-01-24 15:40] VITALS: BP 105/74; PULSE 68; TEMP 36.4; O2SAT 98
[2017-01-24 16:00] VITALS: O2SAT 95
[2017-01-24] MEDS: SUCRALFATE 1 GM/10 ML UDC PO SCH (19:31)
[2017-01-24] MEDS: ONDANSETRON INJ 2 MG/ML 2 ML VIAL IV PRN (21:40)
[2017-01-24 23:50] VITALS: BP 115/77; PULSE 71; TEMP 36.8; O2SAT 98
[2017-01-25] MEDS: HYDROmorphone INJ 2 MG/ML SYR/VIAL IV PRN ×2 (01:31→04:43)
[2017-01-25 08:00] VITALS: BP 107/63; PULSE 67; TEMP 36.7; O2SAT 99
[2017-01-25] MEDS: THIAMINE HCL 100 MG TAB PO SCH (08:23)
[2017-01-25] MEDS: SUCRALFATE 1 GM/10 ML UDC PO SCH ×2 (08:23→20:20)
[2017-01-25] MEDS: PAROXETINE 20 MG TAB PO SCH (08:23)
[2017-01-25] MEDS: HYDROmorphone INJ 1 MG/ML SYR IV PRN ×4 (08:23→20:57)
[2017-01-25] MEDS: PANTOprazole SOD 40 MG TAB PO SCH ×2 (08:24→20:21)
[2017-01-25] MEDS: POTASSIUM CHLORIDE 10 MEQ TABCR PO SCH ×3 (08:24→20:20)
[2017-01-25] MEDS: INSULIN GLARGINE SOLOSTAR 100 UNITS/ML 3 ML PEN SC SCH (08:33)
[2017-01-25] MEDS: INSULIN ASPART 100 UNITS/ML 3 ML PEN SC SCH ×4 (08:33→21:45)
[2017-01-25] MEDS: BOOST GLUCOSE CONTROL PO SCH (12:00)
--- NOTE | 2017-01-25 12:01 | Pharmacy Progress Note ---
Glycemic Control: Progress Nt Date of Service Jan 25, 2017. Scope Glycemic Pharmacist consulted by Dr Lind on 01/15/17 for glycemic control and to write orders per [facility] inpatient glycemic control protocol. Objective Accuchecks BSG (last 24hrs): Test 01/24/17 16:53 01/24/17 20:36 01/25/17 07:45 01/25/17 11:42 Bedside Glucose 128 mg/dl (70-99) 174 mg/dl (70-99) 141 mg/dl (70-99) 128 mg/dl (70-99) HbA1c: Test 01/16/17 05:50 Hemoglobin A1c 7.3 % (4.5-5.6) H Recent Pertinent Medications Outpatient Anti-diabetic Regimen: * None The patient is currently receiving: * Basal insulin: Lantus 13 units every 24 hours (reduced to 9 units yesterday for NPO status) * Correctional Insulin: Novolog Correction per scale ACHS Goal Range: Low 100 mg/dL - High 140 mg/dL Correction Factor: 30 mg/dL/unit * Prandial insulin: Per carb ratio of 1 unit per 15 grams CHO consumed Risk Factors for Insulin Resistance: * Diet: resumed T2DM diet today Assessment & Plan ASSESSMENT: 01/24/17 * Patient is currently receiving an average of 18 units of insulin per day * 13 units of basal insulin * 5 units of correctional insulin only yesterday - no po intake documented * BSGs ranging 77-180 over the past 24hrs * Lantus dose reduced this AM as patient to be NPO for EGD * Based on yesterday's doses and zero/minimal po intake, patient could have most likely tolerated the 13 units of Lantus * He did have one "almost hypoglycemic" episode yesterday but remainder of BSGs were at or above goal, so I'm hesitant to adjust dose because of this 01/25/17 * Patient received 14 units of insulin yesterday with BSGs ranging from 128 to 174 mg/dL * Fasting BSG slightly elevated this morning * Patient did receive a partial dose of Lantus yesterday due to NPO status. I suspect this to be the cause. * Full dose of 13 units was resumed this morning * Patient resumed oral diet today - no changes to current CF/CR needed at this time PLAN FOR INPATIENT GLYCEMIC CONTROL: * Continue Lantus 13 units qAM * Continue correction factor of 30 mg/dl/unit * Continue carb ratio of 1 unit per 15 grams CHO consumed * Continue goal range of Low 100 mg/dL - High 140 mg/dL DISCHARGE RECOMMENDATIONS: * A1c above goal for patient's age/comorbidities * Patient was on metformin previously but was stopped due to improved BSG control - as per CDE note * Recommend resuming metformin for improved BSG control (although may want to wait until abdominal pain issue resolves d/t side effects of metformin) Thank you.
[2017-01-25 14:53] VITALS: BP 98/64; PULSE 85; TEMP 36.7; O2SAT 93
[2017-01-25 16:00] VITALS: O2SAT 93
--- NOTE | 2017-01-25 17:41 | Progress Note ---
Internal Med Progress Note Date of Service: Jan 25, 2017. Provider Documentation: SUBJECTIVE: resting comfortably says still has significant pain does not seem to be happy cutting back on Dilaudid afebrile OBJECTIVE: Vital Signs-as noted below Exam: General-alert and oriented. Not in distress ENT-normal hearing Neck-no neck masses Lungs-cta b/l no wheezing or crackles Heart-s1 and s2 heard regular no murmurs Abdomen-soft bowel sounds present tenderness in epigastric region no distension Extremities-no edema no erythema Neuro-alert and oriented moves extremities Lab data as noted below. ASSESSMENT & PLAN: ACUTE / CHRONIC PANCREATITIS Initial lipase 359, but subsequently chloe as high as 2180. CT of abdomen and pelvis demonstrated infiltration of the fat surrounding the pancreatic head consistent with acute pancreatitis, no apparent mass, abscess, cyst, pseudocyst. GI on board and outpatient EUS recommended. was on bowel rest, IV fluids, analgesics, antiemetics. Persistent abdominal pain- consider other etiologies as discussed below. advancing diet as tolerated Tapering pain meds EPIGASTRIC PAIN Pancreatitis as noted above. UGI series did not show any apparent PUD or other abnormalities. s/p EGD today- multiple gastric polyps- biopsies taken GI recommends sucralfate for 6-8 weeks CHRONIC PAIN Hx of chronic pain with various musculoskeletal symptoms as well as abdominal pain. HX of numerous visits for pain to ED's, primary care clinic, and pain management. Old records reviewed by : "He had termination of analgesic agreement in [facility] about 2 years ago. He has also been dismissed from [facility]". Tapering narcotics No narcotics on discharge. Stable conditions: ALCOHOL WITHDRAWAL Symptoms improved. Received chlordiazepoxide per protocol. stable ALCOHOL ABUSE Thiamine daily. Offer counseling. CALLOWAY'S ESOPHAGUS Continue PPI. DM TYPE 2 History of diabetes mellitus, apparently type 2 diet controlled (although at risk for type 1 disease with chronic pancreatitis). Uncontrolled HBA1c 9.2. Pharmacy consulted for glycemic management. Will monitor. VTE PROPHYLAXIS SCD's. Ambulate. DISPOSITION To be determined pt/ot Family Medicine follow-up with Dr. Dhiraj Myers. . Consultants: GI Pharmacy . Vital Signs: Date Time Temp Pulse Resp B/P (MAP) Pulse Ox O2 Delivery O2 Flow Rate FiO2 01/25/17 14:53 36.7 85 20 98/64 (75) 93 01/25/17 08:00 36.7 67 16 107/63 (78) 99 Room Air 01/25/17 07:30 Room Air 01/25/17 00:00 Room Air 01/24/17 23:50 36.8 71 16 115/77 (90) 98 Room Air Lab Results: Results Past 24 Hours Test 01/24/17 20:36 01/25/17 07:45 01/25/17 11:42 01/25/17 16:30 Range/Units Bedside Glucose 174 141 128 131 70-99 mg/dl
[2017-01-25] MEDS: TRAMADOL HCL 50 MG TAB PO PRN (21:46)
[2017-01-25 23:21] VITALS: BP 104/68; PULSE 76; TEMP 36.8; O2SAT 97
[2017-01-26] MEDS: HYDROmorphone INJ 1 MG/ML SYR IV PRN ×4 (00:23→09:21)
[2017-01-26 07:10] VITALS: BP 105/70; PULSE 68; TEMP 36.7; O2SAT 93
[2017-01-26] MEDS: PANTOprazole SOD 40 MG TAB PO SCH ×2 (08:21→19:52)
[2017-01-26] MEDS: POTASSIUM CHLORIDE 10 MEQ TABCR PO SCH ×3 (08:21→19:52)
[2017-01-26] MEDS: PAROXETINE 20 MG TAB PO SCH (08:21)
[2017-01-26] MEDS: THIAMINE HCL 100 MG TAB PO SCH (08:21)
[2017-01-26] MEDS: SUCRALFATE 1 GM/10 ML UDC PO SCH ×2 (08:21→19:52)
[2017-01-26] MEDS: INSULIN ASPART 100 UNITS/ML 3 ML PEN SC SCH ×4 (08:23→21:55)
[2017-01-26] MEDS: INSULIN GLARGINE SOLOSTAR 100 UNITS/ML 3 ML PEN SC SCH (08:24)
[2017-01-26] MEDS: BOOST GLUCOSE CONTROL PO SCH (12:00)
[2017-01-26] MEDS ORDERED: HYDROmorphone INJ 1 MG/ML SYR IV PRN (12:00)
[2017-01-26] MEDS: HYDROmorphone INJ 0.5 MG/0.5 ML SYR IV PRN ×3 (13:18→21:48)
[2017-01-26 15:55] VITALS: BP 111/73; PULSE 74; TEMP 36.4; O2SAT 96
[2017-01-26 16:00] VITALS: O2SAT 96
--- NOTE | 2017-01-26 17:20 | Progress Note ---
Internal Med Progress Note Date of Service: Jan 26, 2017. Provider Documentation: SUBJECTIVE: resting comfortably says still has abdominal pain and not eating much says ambulating ok afebrile ok for discharge in am OBJECTIVE: Vital Signs-as noted below Exam: General-alert and oriented. Not in distress ENT-normal hearing Neck-no neck masses Lungs-cta b/l no wheezing or crackles Heart-s1 and s2 heard regular no murmurs Abdomen-soft bowel sounds present tenderness in epigastric region no distension Extremities-no edema no erythema Neuro-alert and oriented moves extremities Lab data as noted below. ASSESSMENT & PLAN: ACUTE / CHRONIC PANCREATITIS Initial lipase 359, but subsequently chloe as high as 2180. CT of abdomen and pelvis demonstrated infiltration of the fat surrounding the pancreatic head consistent with acute pancreatitis, no apparent mass, abscess, cyst, pseudocyst. GI on board and outpatient EUS recommended. was on bowel rest, IV fluids, analgesics, antiemetics. Persistent abdominal pain- consider other etiologies as discussed below. advancing diet and seems tolerating ok Tapering pain meds plan for d/c in am and f/u as out patient. EPIGASTRIC PAIN Pancreatitis as noted above. UGI series did not show any apparent PUD or other abnormalities. s/p EGD today- multiple gastric polyps- biopsies taken GI recommends sucralfate for 6-8 weeks CHRONIC PAIN Hx of chronic pain with various musculoskeletal symptoms as well as abdominal pain. HX of numerous visits for pain to ED's, primary care clinic, and pain management. Old records reviewed by : "He had termination of analgesic agreement in [facility] about 2 years ago. He has also been dismissed from [facility]". Tapering narcotics No narcotics on discharge. Stable conditions: ALCOHOL WITHDRAWAL Symptoms improved. Received chlordiazepoxide per protocol. stable ALCOHOL ABUSE Thiamine daily. Offer counseling. CALLOWAY'S ESOPHAGUS Continue PPI. DM TYPE 2 History of diabetes mellitus, apparently type 2 diet controlled (although at risk for type 1 disease with chronic pancreatitis). Uncontrolled HBA1c 9.2. Pharmacy consulted for glycemic management. Will monitor. VTE PROPHYLAXIS SCD's. Ambulate. DISPOSITION possible d/c in am pt/ot Family Medicine follow-up with Dr. Dhiraj Myers. . Vital Signs: Date Time Temp Pulse Resp B/P (MAP) Pulse Ox O2 Delivery O2 Flow Rate FiO2 01/26/17 15:55 36.4 74 18 111/73 (86) 96 Room Air 01/26/17 08:00 Room Air 01/26/17 07:10 36.7 68 16 105/70 (82) 93 Room Air 01/26/17 01:14 Room Air 01/25/17 23:21 36.8 76 20 104/68 (80) 97 Room Air Lab Results: Results Past 24 Hours Test 01/25/17 20:31 01/26/17 07:47 01/26/17 11:46 Range/Units Bedside Glucose 220 163 130 70-99 mg/dl
[2017-01-26] MEDS: TRAMADOL HCL 50 MG TAB PO PRN (19:56)
[2017-01-27 00:03] VITALS: BP 103/68; PULSE 89; TEMP 36.9; O2SAT 97
[2017-01-27] MEDS: HYDROmorphone INJ 0.5 MG/0.5 ML SYR IV PRN (02:11)
[2017-01-27] MEDS: TRAMADOL HCL 50 MG TAB PO PRN (03:36)
[2017-01-27] MEDS ORDERED: TRAMADOL HCL 50 MG TAB PO ONE (06:30)
[2017-01-27 07:42] VITALS: BP 98/62; PULSE 88; TEMP 36.7; O2SAT 97
[2017-01-27] MEDS ORDERED: INSULIN GLARGINE SOLOSTAR 100 UNITS/ML 3 ML PEN SC SCH (08:00)
[2017-01-27] MEDS: POTASSIUM CHLORIDE 10 MEQ TABCR PO SCH ×2 (08:24→13:08)
[2017-01-27] MEDS: THIAMINE HCL 100 MG TAB PO SCH (08:24)
[2017-01-27] MEDS: PANTOprazole SOD 40 MG TAB PO SCH (08:24)
[2017-01-27] MEDS: SUCRALFATE 1 GM/10 ML UDC PO SCH (08:24)
[2017-01-27] MEDS: PAROXETINE 20 MG TAB PO SCH (08:24)
[2017-01-27] MEDS: INSULIN ASPART 100 UNITS/ML 3 ML PEN SC SCH ×2 (08:28→13:08)
[2017-01-27] MEDS: BOOST GLUCOSE CONTROL PO SCH (12:00)
--- NOTE | 2017-01-27 13:13 | Pharmacy Progress Note ---
Glycemic Control Progress Note Date of Service Jan 27, 2017. Scope Glycemic Pharmacist consulted for glycemic control to write orders per [facility] inpatient glycemic control protocol. Objective Accuchecks BSG (last 24hrs): Test 01/26/17 16:35 01/26/17 20:44 Bedside Glucose 125 mg/dl (70-99) 218 mg/dl (70-99) HbA1c: Test 01/16/17 05:50 Hemoglobin A1c 7.3 % (4.5-5.6) H Recent Pertinent Medications The patient is currently receiving: * Basal insulin: Lantus 15 units every 24 hours given in the morning * Correctional Insulin: Novolog Correction per scale ACHS Goal Range: Low 100 mg/dL - High 140 mg/dL Correction Factor: 30 mg/dL/unit * Prandial insulin: Per carb ratio of 1 unit per 15 grams CHO consumed Outpatient Anti-Diabetic Meds N/A , no outpatient antidiabetic regimen Assessment & Plan ASSESSMENT: * See progress note from 01/15/17 for more background info, in short: * Pt receiving SQ basal bolus insulin regimen for hyperglycemia secondary to baseline DM, recent surgery * Patient is currently receiving an average of 17 units of insulin per day * 15 units of basal insulin {most of regimen is basal insulin secondary to decreased PO intake} * 2 units of prandial/correctional insulin * BSGs ranging 130 - 218 mg/dl over the past 24hrs * Changes needed to insulin regimen: * AM Fasting BSG = 177 mg/dl. This is slightly above goal range for patient based on inpatient targets and co-morbidities. Therefore Basal insulin needs increased * Post-prandial BSGs are elevated/BSGs rise throughout the day therefore need to tighten CF/CR * Total daily dose = 17 units. Increase/decrease in total daily dose is needed * Additional notes / comments: Will increase insulin regimen cautiously as pt with little PO intake PLAN FOR INPATIENT GLYCEMIC CONTROL: * Basal insulin: increase dose slightly * Lantus 18 units SQ daily in AM * Bolus insulin: tighten parameters slightly * NovoLog per scale ACHS or Q6hrs while NPO * Goal Range: Low 100 mg/dL - High 140 mg/dL * Correction Factor: 25 mg/dL/unit * Nutritional / Prandial insulin per carb ratio of 1 unit per 10 grams CHO consumed RECOMMENDATIONS FOR DISCHARGE: * A1c above goal for patient's age/comorbidities (goal A1c < 7%) * Patient was on metformin previously but was stopped due to improved BSG control - as per CDE note * Recommend resuming metformin for improved BSG control (although may want to wait until abdominal pain issue resolves d/t side effects of metformin) * Please note that the plan above was derived based on current level of insulin resistance and hospital stress. These recommendations are appropriate for inpatient admission only. Plan of care upon discharge will need to be reassessed to avoid potential outpatient hypo/hyperglycemia. Thank you.
[2017-01-27] MEDS ORDERED: MULTTAB PO (14:00)
[2017-01-27] MEDS ORDERED: CRFUDL PO (14:00)
[2017-01-27] MEDS ORDERED: THM100 PO (14:00)
--- NOTE | 2017-01-27 14:05 | Discharge Instructions ---
Discharge Instructions Date of Service Jan 27, 2017. Admission Reason for Admission: Acute Pancreatitis Discharge Discharge Diagnosis / Problem: pancreatitis Discharge Goals Goal(s): Decrease discomfort, Improve function Activity Recommendations Activity Limitations: resume your previous activity . Instructions / Follow-Up Instructions / Follow-Up FOLLOWUP WITH FAMILY DOCTOR Dhiraj Campa ON January AT 12:55PM. TO DISCUSS WITH FAMILY DOCTOR ABOUT RESTARTING DIABETES MEDICATION HBA1C IS 7.3. GI RECOMMENDS TO BE ON SUCRALFATE 1GM PO TWICE DAILY FOR 6-8 WEEKS. GI TO FOLLOWUP IN 6- 8 WEEKS FOR ENDOSCOPIC ULTRASOUND. PATIENT WILL BE CALLED WITH APPOINTMENT Current Hospital Diet Patient's current hospital diet: Full Liquid Diet, Diabetes Type 2 Diet Discharge Diet Recommended Diet: AHA Diet (Heart Healthy), Diabetes Type 2 Diet Procedures Procedures Performed: EGD with Bx's Pending Studies Studies pending at discharge: no Laboratory Results Hemoglobin A1c Test 01/16/17 05:50 Range/Units Estimated Average Glucose 163 mg/dl Hemoglobin A1c 7.3 H 4.5-5.6 % Medical Emergencies . Who to Call and When: Medical Emergencies: If at any time you feel your situation is an emergency, please call 911 immediately. . Non-Emergent Contact Non-Emergency issues call your: Primary Care Provider . . "Provider Documentation" section prepared by Jed Sousa. . VTE Core Measure Inpt VTE Proph given/why not?: SCD's
[2017-01-27 14:10] VITALS: BP 98/62; PULSE 88; TEMP 36.7; O2SAT 97
--- NOTE | 2017-01-27 19:39 | Progress Note ---
Internal Med Progress Note Date of Service: Jan 27, 2017. Provider Documentation: SUBJECTIVE: resting comfortably eating ok pain is ok ok to go home OBJECTIVE: Vital Signs-as noted below Exam: General-alert and oriented. Not in distress ENT-normal hearing Neck-no neck masses Lungs-cta b/l no wheezing or crackles Heart-s1 and s2 heard regular no murmurs Abdomen-soft bowel sounds present mild tenderness in epigastric region no distension Extremities-no edema no erythema Neuro-alert and oriented moves extremities Lab data as noted below. ASSESSMENT & PLAN: ACUTE / CHRONIC PANCREATITIS Initial lipase 359, but subsequently chloe as high as 2180. CT of abdomen and pelvis demonstrated infiltration of the fat surrounding the pancreatic head consistent with acute pancreatitis, no apparent mass, abscess, cyst, pseudocyst. GI on board and outpatient EUS recommended. was on bowel rest, IV fluids, analgesics, antiemetics. Persistent abdominal pain- consider other etiologies as discussed below. advancing diet and seems tolerating ok Tapering pain meds Discharged home f/u wth GI for EUS. EPIGASTRIC PAIN Pancreatitis as noted above. UGI series did not show any apparent PUD or other abnormalities. s/p EGD today- multiple gastric polyps- biopsies taken GI recommends sucralfate for 6-8 weeks CHRONIC PAIN Hx of chronic pain with various musculoskeletal symptoms as well as abdominal pain. HX of numerous visits for pain to ED's, primary care clinic, and pain management. Old records reviewed by : "He had [facility] of [facility] about 2 years ago. He has also been dismissed from [facility]". Tapering narcotics No narcotics on discharge. f/u with pcp ALCOHOL WITHDRAWAL Symptoms improved. Received chlordiazepoxide per protocol. stable ALCOHOL ABUSE Thiamine daily. Offer counseling. CALLOWAY'S ESOPHAGUS Continue PPI. DM TYPE 2 History of diabetes mellitus, apparently type 2 diet controlled (although at risk for type 1 disease with chronic pancreatitis). Uncontrolled HBA1c 7.3. Pharmacy consulted for glycemic management. patient likes to discuss with PCP before restarting on metformin.. Discharged home Vital Signs: Date Time Temp Pulse Resp B/P (MAP) Pulse Ox O2 Delivery O2 Flow Rate FiO2 01/27/17 14:10 36.7 88 16 97 Room Air 01/27/17 08:00 Room Air 01/27/17 07:42 36.7 88 16 98/62 (74) 97 Room Air 01/27/17 00:03 36.9 89 18 103/68 (80) 97 Room Air 01/27/17 00:00 Room Air Lab Results: Results Past 24 Hours Test 01/26/17 20:44 01/27/17 07:50 01/27/17 11:30 Range/Units Bedside Glucose 218 177 165 70-99 mg/dl
--- NOTE | 2017-01-27 19:50 | Discharge Summary ---
Discharge Summary Date of Service Jan 27, 2017. 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/23/09 Status: Chronic (4) Depression Status: Chronic (5) Depression Status: Chronic (6) DM type 2 (diabetes mellitus, type 2) Status: Chronic (7) Gastroesophageal reflux disease Status: Chronic (8) H/O acute pancreatitis Permanent Comment: recurrent Status: Chronic (9) History of substance abuse Status: Chronic (10) Intentional drug overdose Status: Resolved (11) Lumbar degenerative disc disease Status: Chronic (12) Mood disorder Status: Chronic (13) Mood disorder Status: Chronic (14) Panic disorder Status: Chronic (15) Pulmonary embolism Status: Resolved (16) Suicidal ideation Status: Chronic (17) Suicidal ideation Status: Resolved (18) Suicide attempt Status: Resolved Procedures: CT abdomen and pelvis Cardiac monitoring Intravenous fluids Intravenous medications S/P EGD . Consultations: GI Pharmacy . Medication Reconciliation New Medications: Multivitamins/Minerals (Mvi With Minerals) Tab 1 TAB PO DAILY for 30 Days, TAB 2 Refills Sucralfate (Sucralfate) 1 Gm/10 Ml Susp 1 GM PO BID, #30 1 Refill Thiamine HCl (Vitamin B-1) 100 Mg Tab 100 MG PO DAILY, #30 TAB 1 Refill Continued Medications: Pantoprazole (Protonix) 40 Mg Tab 40 MG PO DAILY, #30 TAB Paroxetine (Paxil) 20 Mg Tab 20 MG PO DAILY, TAB Tramadol (Ultram) 50 Mg Tab 50 MG PO DAILY PRN for Pain, TAB Admission Information HPI (per Admitting provider): 41 year old male with history of Alcoholism, Pancreatitis, DM, Bipolar Disorder , GERD presenting with abdominal pain starting yesterday. Follows with Dr. Myers for Primary Care. Patient was at his usual state of health until last evening when he started to have right upper quadrant pain radiating to the back, "pressure", severe associated with diaphoresis and nausea. The pain persisted through the night prompting consult to the ER. No fever/chills, chest pain, dyspnea, palpitations, headache. Last drink of beer last week. Lipase Normal but CT abdomen:(+)inflammation at the head of the pancreas On exam, patient seen resting in bed, still has abdominal pain but no active nausea. (+) mild tremors, anxiety; denies hallucinations No other symptoms Physical Exam (per Admitting): General Appearance: WD/WN, no apparent distress Head: normocephalic, atraumatic Eyes: normal inspection, EOMI, sclerae normal ENT: normal ENT inspection, TMs normal, pharynx normal Neck: supple, no adenopathy, thyroid normal, no JVD, trachea midline Respiratory/Chest: chest non-tender, lungs clear, normal breath sounds, no respiratory distress, no accessory muscle use Cardiovascular: regular rate, rhythm, no edema, no JVD, no murmur Abdomen/GI: normal bowel sounds, soft, + tenderness ((+) moderate tenderness to upper quadrants) Back: normal inspection, no CVA tenderness Extremities/Musculoskelatal: normal inspection, no calf tenderness, no pedal edema Neurologic/Psych: heater mechanic II-XII nml as tested, no motor/sensory deficits, alert , normal mood/affect, oriented x 3 Skin: normal color, warm/dry, no rash Lymphatic: no adenopathy Hospital Course ACUTE / CHRONIC PANCREATITIS Initial lipase 359, but subsequently chloe as high as 2180. CT of abdomen and pelvis demonstrated infiltration of the fat surrounding the pancreatic head consistent with acute pancreatitis, no apparent mass, abscess, cyst, pseudocyst. GI on board and outpatient EUS recommended. was on bowel rest, IV fluids, analgesics, antiemetics. Persistent abdominal pain- consider other etiologies as discussed below. advancing diet and seems tolerating ok Tapering pain meds Discharged home f/u wt GI for EUS. EPIGASTRIC PAIN Pancreatitis as noted above. UGI series did not show any apparent PUD or other abnormalities. s/p EGD today- multiple gastric polyps- biopsies taken GI recommends sucralfate for 6-8 weeks CHRONIC PAIN Hx of chronic pain with various musculoskeletal symptoms as well as abdominal pain. HX of numerous visits for pain to ED's, primary care clinic, and pain management. Old records reviewed by : "He had termination of analgesic agreement in [facility] about 2 years ago. He has also been dismissed from [facility]". Tapering narcotics No narcotics on discharge. f/u with pcp ALCOHOL WITHDRAWAL Symptoms improved. Received chlordiazepoxide per protocol. stable ALCOHOL ABUSE Thiamine daily. Offer counseling. CALLOWAY'S ESOPHAGUS Continue PPI. DM TYPE 2 History of diabetes mellitus, apparently type 2 diet controlled (although at risk for type 1 disease with chronic pancreatitis). Uncontrolled HBA1c 7.3. Pharmacy consulted for glycemic management. patient likes to discuss with PCP before restarting on metformin.. Discharged home Total time spent on discharge = 35MINUTES This includes examination of the patient, discharge planning, medication reconciliation, and communication with other providers. Discharge Instructions Discharge Instructions Date of Service Jan 27, 2017. Admission Reason for Admission: Acute Pancreatitis Discharge Discharge Diagnosis / Problem: pancreatitis Discharge Goals Goal(s): Decrease discomfort, Improve function Activity Recommendations Activity Limitations: resume your previous activity . Instructions / Follow-Up Instructions / Follow-Up FOLLOWUP WITH FAMILY DOCTOR Dhiraj Campa ON January AT 12:55PM. TO DISCUSS WITH FAMILY DOCTOR ABOUT RESTARTING DIABETES MEDICATION HBA1C IS 7.3. GI RECOMMENDS TO BE ON SUCRALFATE 1GM PO TWICE DAILY FOR 6-8 WEEKS. GI TO FOLLOWUP IN 6- 8 WEEKS FOR ENDOSCOPIC ULTRASOUND. PATIENT WILL BE CALLED WITH APPOINTMENT Current Hospital Diet Patient's current hospital diet: Full Liquid Diet, Diabetes Type 2 Diet Discharge Diet Recommended Diet: AHA Diet (Heart Healthy), Diabetes Type 2 Diet Procedures Procedures Performed: EGD with Bx's Pending Studies Studies pending at discharge: no Laboratory Results Hemoglobin A1c Test 01/16/17 05:50 Range/Units Estimated Average Glucose 163 mg/dl Hemoglobin A1c 7.3 H 4.5-5.6 % Medical Emergencies . Who to Call and When: Medical Emergencies: If at any time you feel your situation is an emergency, please call 911 immediately. . Non-Emergent Contact Non-Emergency issues call your: Primary Care Provider . . "Provider Documentation" section prepared by Jed Sousa. . VTE Core Measure Inpt VTE Proph given/why not?: SCD's
[2017-01-28] MEDS ORDERED: INSULIN GLARGINE SOLOSTAR 100 UNITS/ML 3 ML PEN SC SCH (08:00)
== END 2017-01-27 15:05 | disposition home or self-care (01) | DRG 439 ==
LOC: C.EDB 12:12 → C.2E 14:46 → ENRESERV 15:08 → C.MS4W 01-19 16:06
PROVIDERS: ADMIT Internal Medicine; ATTEND Internal Medicine
PROC: 0DB68ZX Excision of Stomach, Via Natural or Artificial Opening Endoscopic, Diagnostic (ICD-10-PCS; principal; 2017-01-24 09:42)
DX: K85.90 Acute pancreatitis without necrosis or infection, unspecified (principal); F10.239 Alcohol dependence with withdrawal, unspecified; K86.1 Other chronic pancreatitis; F41.9 Anxiety disorder, unspecified; E11.9 Type 2 diabetes mellitus without complications; F31.9 Bipolar disorder, unspecified; K21.9 Gastro-esophageal reflux disease without esophagitis; K31.7 Polyp of stomach and duodenum; Z79.899 Other long term (current) drug therapy; Z87.891 Personal history of nicotine dependence; G89.29 Other chronic pain; K22.70 Barrett's esophagus without dysplasia; Z98.1 Arthrodesis status; Z90.49 Acquired absence of other specified parts of digestive tract; Z81.8 Family history of other mental and behavioral disorders; Z81.1 Family history of alcohol abuse and dependence; Z80.9 Family history of malignant neoplasm, unspecified; Z82.49 Family history of ischemic heart disease and other diseases of the circulatory system

== ENCOUNTER 2017-11-28 22:15 | Observation (INO) | payer OTHER ==
[~2017-11-28] VITALS: Ht 182.9 cm; Wt 91.9 kg
[~2017-11-28 22:15] MED LIST changes: +CRFUDL PO; +MULTTAB PO; +THM100 PO
[2017-11-28] MEDS ORDERED: HYDROmorphone INJ 2 MG/ML SYR/VIAL IV STA (22:50)
[2017-11-28] MEDS ORDERED: SODIUM CHLORIDE 0.9% 1000ML 1,000 ML IV STA (22:50)
[2017-11-28] MEDS ORDERED: ONDANSETRON INJ 2 MG/ML 2 ML VIAL IV STA (22:50)
[2017-11-28] MEDS ORDERED: ALBUT/IPRATROP 3MG/0.5MG NEB 3 ML VIAL INH STA (22:53)
[2017-11-28] MEDS ORDERED: HYDROmorphone INJ 1 MG/ML SYR ONE (22:59)
[2017-11-28 23:04] LABS: BASO % 0.2 %; BASO ABS # 0.01 K/uL (0-0.2); EOS % 6.2 %; HEMATOCRIT 40.6 % (42-52); HEMOGLOBIN 14.8 g/dL (14.0-18.0); IG# 0.02 K/uL (0.00-0.02); LYMPH % 29.5 %; LYMPH ABS # 1.92 K/uL (1.2-3.4); MEAN CELL VOLUME 88.6 fL (80-100); MEAN CORPUSCULAR HEMOGLOBIN 32.3 pg (25-34); MEAN CORPUSCULAR HGB CONC 36.5 g/dl (32-36); MEAN PLATELET VOLUME 9.1 fL (7.4-10.4); MONO % 7.2 %; MONO ABS # 0.47 K/uL (0.11-0.59); NEUT % 56.6 %; NEUT ABS # 3.68 K/uL (1.4-6.5); PLATELET COUNT 147 K/uL (130-400); RED CELL DISTRIBUTION WIDTH CV 12.5 % (11.5-14.5)
[2017-11-28] MEDS ORDERED: PANT40TA2 PO (23:05)
[2017-11-28] MEDS ORDERED: EMPA1TAB3 PO (23:05)
[2017-11-28] MEDS ORDERED: PXL20 PO (23:05)
[2017-11-28 23:23] LABS: ALBUMIN 3.5 gm/dl (3.4-5.0); ALT/SGPT 46 U/L (12-78); AST/SGOT 39 U/L (15-37); BLOOD UREA NITROGEN 11 mg/dl (7-18); CALCIUM 8.8 mg/dl (8.5-10.1); CARBON DIOXIDE 22 mmol/L (21-32); CREATININE 1.04 mg/dl (0.60-1.40); GLUCOSE 244 mg/dl (70-99); LIPASE 63 U/L (73-393); POTASSIUM 3.6 mmol/L (3.5-5.1); SODIUM 137 mmol/L (136-145)
[2017-11-28 23:28] LABS: ALKALINE PHOSPHATASE 81 U/L (45-117); TOTAL PROTEIN 7.8 gm/dl (6.4-8.2)
[2017-11-29] MEDS ORDERED: HYDROmorphone INJ 2 MG/ML SYR/VIAL IV STA ×2 (00:16→00:48)
[2017-11-29] MEDS ORDERED: HYDROmorphone INJ 1 MG/ML SYR ONE ×2 (00:19→01:07)
[2017-11-29] MEDS ORDERED: OPTIRAY 320 IV PRN (01:30)
[2017-11-29] MEDS ORDERED: KETOROLAC TROMETHAMINE 30 MG/ML VIAL IV ONE (02:46)
[2017-11-29] MEDS ORDERED: DOXYCYCLINE IV 100 MG in DEXTROSE 5% 100ML 100 ML IV ONE (02:49)
[2017-11-29] MEDS ORDERED: INSULIN GLARGINE SOLOSTAR 100 UNITS/ML 3 ML PEN SC ONE (02:53)
[2017-11-29] MEDS ORDERED: INSULIN ASPART 100 UNITS/ML 3 ML PEN SC ONE (02:53)
[2017-11-29] MEDS ORDERED: LEVALBUTEROL/IPRATROPIUM NEB INH STA (02:59)
[2017-11-29] MEDS ORDERED: LEVALBUTEROL/IPRATROPIUM NEB INH PRN (03:00)
[2017-11-29] MEDS ORDERED: ACETAMINOPHEN 325 MG TAB PO PRN ×2 (03:00→04:45)
[2017-11-29] MEDS ORDERED: ONDANSETRON INJ 2 MG/ML 2 ML VIAL IV PRN (03:00)
[2017-11-29] MEDS ORDERED: PROCHLORPERAZINE INJ 5 MG in SYRINGE 4 ML IV ONE (03:00)
[2017-11-29] MEDS ORDERED: TRAMADOL HCL 50 MG TAB PO PRN (03:00)
[2017-11-29] MEDS ORDERED: KETOROLAC TROMETHAMINE 15 MG/ML VIAL IV. PRN (03:00)
[2017-11-29] MEDS ORDERED: GLUCOSE 10 TABS/TUBE PO PRN (03:00)
[2017-11-29] MEDS ORDERED: GLUCAGON FOR INJ 1 MG VIAL SQ PRN (03:00)
[2017-11-29] MEDS ORDERED: GLUCOSE 40% GEL 15 GM TUBE PO PRN (03:00)
[2017-11-29] MEDS ORDERED: PROCHLORPERAZINE INJ 5 MG in SYRINGE 4 ML IV PRN (03:00)
[2017-11-29] MEDS ORDERED: LACTATED RINGER'S 1000ML 1,000 ML IV ONE (03:00)
[2017-11-29] MEDS ORDERED: ACETAMINOPHEN IV 650 MG in EMPTY BAG 0 ML IV PRN (03:00)
[2017-11-29] MEDS ORDERED: DEXTROSE 50% 50 ML SYR IV PRN (03:00)
[2017-11-29] MEDS ORDERED: PANTOprazole INJ 40 MG in SYRINGE 0 ML IV ONE (03:00)
--- NOTE | 2017-11-29 03:11 | EMERGENCY ROOM VISIT NOTE ---
History First contact with patient: 22:40 Chief Complaint: ABDOMINAL PAIN Stated Complaint: MAJOR BACK/STOMACH PAIN, COUGH/BURNING IN CHEST Nursing Triage Summary: patient to ed via triage, states "I've had pancreatitis before, I think thats going on now. I also have a raspy cough and burning in my chest." History of Present Illness The patient is a 42 year old male who presents to the Emergency Room with complaints of severe epigastric pain that goes to his back for the past 3 days with nausea and vomiting and a cough with burning in his chest. Patient states he feels like his pancreatitis. He denies any recent alcohol intake. Pain currently 10 out of 10. Nothing makes it better or worse. He describes it as severe. It radiates to his back. Patient denies dysuria, diarrhea, fever, chills, leg pain or swelling. No prior heart disease. No history of blood clots. Review of Systems An 10 system review of systems was completed with positives and pertinent negatives listed in the HPI. Past Medical/Surgical History Medical Problems: (1) Abdominal pain (2) Alcohol abuse (3) Alcohol intoxication (4) Renae's esophagus (5) Depression (6) Depression (7) DM type 2 (diabetes mellitus, type 2) (8) Gastroesophageal reflux disease (9) H/O acute pancreatitis (10) History of substance abuse (11) Intentional drug overdose (12) Lumbar degenerative disc disease (13) Mood disorder (14) Mood disorder (15) Panic disorder (16) Pulmonary embolism (17) Suicidal ideation (18) Suicidal ideation (19) Suicide attempt Surgical Problems: (1) H/O esophagogastroduodenoscopy (2) H/o lumbar fusion (3) History of appendectomy (4) History of cholecystectomy (5) Hx of appendectomy (6) Insertion of implantable venous access port Family History Depression FATHER FH: alcohol abuse FATHER FH: cancer FH: heart disease FH: manic depression AUNT Social History Smoking Status: Never Smoker Alcohol Use: occasionally Drug Use: none, other Marital Status: Housing Status: lives with family Occupation Status: unemployed Current/Historical Medications Scheduled Empagliflozin (Jardiance), 25 MG PO DAILY Pantoprazole (Pantoprazole Sodium), 40 MG PO DAILY Paroxetine (Paroxetine HCl), 20 MG PO DAILY Physical Exam Vital Signs Date Time Temp Pulse Resp B/P (MAP) Pulse Ox O2 Delivery O2 Flow Rate FiO2 4/25/18 03:22 100 20 107/59 94 Room Air 11/29/17 02:35 90 16 103/56 98 Room Air 11/29/17 01:11 102 20 99/47 99 Room Air 11/28/17 23:12 98 20 135/77 98 Room Air 11/28/17 23:06 98 Room Air 11/28/17 22:23 37.0 109 20 127/81 96 Room Air Physical Exam VITALS: Vitals are noted on the nurse's note and reviewed by myself. Vital signs mildly tachycardic GENERAL: White male rolling around the bed yelling and screaming for pain meds, nondiaphoretic, well-developed well-nourished. SKIN: The skin was without rashes, erythema, edema, or bruising. There is no tenting of the skin. Capillary reflex less than 2 seconds. HEAD: Normocephalic atraumatic. EARS: External auditory canals clear, tympanic membranes pearly joshua without erythema or effusion bilaterally. EYES: Pupils equal round and reactive to light and accommodation. Conjunctivae without injection, sclerae without icterus. Extraocular movements intact. NOSE: Patent, turbinates without inflammation or discharge. No sinus tenderness. MOUTH: Mucous membranes moist. Pharynx without erythema or exudate. Uvula midline. Airway patent. Tongue does not deviate. NECK: Supple without nuchal rigidity. No lymphadenopathy. No thyromegaly. Cervical spine is nontender. No JVD. HEART: Regular rate and rhythm without murmurs gallops or rubs. LUNGS: Clear to auscultation bilaterally without wheezes, rales or rhonchi. No retractions or accessory muscle use. ABDOMEN: Positive bowel sounds x 4. Normal tympanic percussion. Soft, tender to palpation epigastric region, without masses or organomegaly. Estrella sign negative. No guarding or rebound tenderness. No CVA tenderness MUSCULOSKELETAL: No muscle atrophy, erythema, or edema noted. NEURO: Patient was alert and oriented to person place and time. Normal sensation to light and sharp touch. No focal neurological deficits. Medical Decision & Procedures Laboratory Results Test 11/28/17 22:46 11/29/17 00:40 11/29/17 03:22 RDW Standard Deviation 40.0 fL (36.4-46.3) RDW Coefficient of Variation 12.5 % (11.5-14.5) White Blood Count 6.50 K/uL (4.8-10.8) Red Blood Count 4.58 M/uL (4.7-6.1) Hemoglobin 14.8 g/dL (14.0-18.0) Hematocrit 40.6 % (42-52) Mean Corpuscular Volume 88.6 fL (80-100) Mean Corpuscular Hemoglobin 32.3 pg (25-34) Mean Corpuscular Hemoglobin Concent 36.5 g/dl (32-36) Platelet Count 147 K/uL (130-400) Mean Platelet Volume 9.1 fL (7.4-10.4) Neutrophils (%) (Auto) 56.6 % Lymphocytes (%) (Auto) 29.5 % Monocytes (%) (Auto) 7.2 % Eosinophils (%) (Auto) 6.2 % Basophils (%) (Auto) 0.2 % Neutrophils # (Auto) 3.68 K/uL (1.4-6.5) Lymphocytes # (Auto) 1.92 K/uL (1.2-3.4) Monocytes # (Auto) 0.47 K/uL (0.11-0.59) Eosinophils # (Auto) 0.40 K/uL (0-0.5) Basophils # (Auto) 0.01 K/uL (0-0.2) Immature Granulocyte % (Auto) 0.3 % Immature Granulocyte # (Auto) 0.02 K/uL (0.00-0.02) Est Creatinine Clear Calc Drug Dose 108.2 ml/min Magnesium Level 2.2 mg/dl (1.8-2.4) Total Bilirubin 0.4 mg/dl (0.2-1) Direct Bilirubin 0.1 mg/dl (0-0.2) Aspartate Amino Transf (AST/SGOT) 39 U/L (15-37) Alanine Aminotransferase (ALT/SGPT) 46 U/L (12-78) Alkaline Phosphatase 81 U/L (45-117) Troponin I < 0.015 ng/ml (0-0.045) Total Protein 7.8 gm/dl (6.4-8.2) Albumin 3.5 gm/dl (3.4-5.0) Lipase 63 U/L (73-393) Bedside Troponin I < 0.030 ng/ml (0-0.045) Medications Administered Medications (Trade) Dose Ordered Sig/Carmita Route Start Time Stop Time Status Last Admin Dose Admin Sodium Chloride 1,000 ml @ 999 mls/hr Q1H1M STAT IV 11/28/17 22:50 11/28/17 23:50 DC 11/28/17 23:04 999 MLS/HR Ondansetron HCl (Zofran Inj) 4 mg NOW STAT IV 11/28/17 22:50 11/28/17 22:52 DC 11/28/17 23:04 4 MG Albuterol/ Ipratropium (Duoneb) 3 ml NOW STAT INH 11/28/17 22:53 11/28/17 22:54 DC 11/28/17 23:04 3 ML Hydromorphone HCl (Dilaudid Inj) 1 mg STK-MED ONCE .ROUTE 11/28/17 22:59 11/28/17 23:00 DC 11/28/17 23:04 1 MG Hydromorphone HCl (Dilaudid Inj) 1 mg ONE STAT IV 11/29/17 00:16 11/29/17 00:17 DC 11/29/17 00:16 1 MG Hydromorphone HCl (Dilaudid Inj) 1 mg ONE STAT IV 11/29/17 00:48 11/29/17 00:49 DC 11/29/17 00:48 1 MG Pantoprazole Sodium 40 mg/ Syringe 10 ml @ 5 mls/min NOW ONCE IV 11/29/17 03:00 11/29/17 03:01 DC 11/29/17 03:18 5 MLS/MIN Prochlorperazine Edisylate 5 mg/ Syringe 5 ml @ 5 mls/min 0300 ONCE IV 11/29/17 03:00 11/29/17 03:01 DC 11/29/17 03:17 5 MLS/MIN Ketorolac Tromethamine (Toradol Inj) 15 mg 0246 ONCE IV 11/29/17 02:46 11/29/17 02:57 DC 11/29/17 03:17 15 MG Doxycycline Hyclate 100 mg/ Dextrose 110 ml @ 50 mls/hr 0249 ONCE IV 11/29/17 02:49 11/29/17 05:00 11/29/17 03:18 50 MLS/HR ED Course Prior records/ancillary studies reviewed. Triage Nursing notes reviewed. The patient's history was concerning for abdominal pain. Differential diagnosis: Etiologies such as appendicitis, diverticulitis, PUD, biliary pathology, UTI, pancreatitis, obstruction, mesenteric ischemia, aortic pathology, infections, inflammatory bowel disease, renal colic, as well as others were entertained. Physical examination findings: As above. ER treatment provided: IV fluids, Dilaudid, Zofran On reassessment the patient felt better. Diagnostics interpreted by me: ECG: Normal sinus, normal intervals, no acute ST-T wave changes. Impression normal sinus rhythm interpreted by myself The labs revealed normal lipase. Stable H&H. Hyperglycemia without DKA Imaging studies: CT of abdomen and pelvis concerning for moderately distended stomach with heterogeneous contacts. Similar appearance of the pancreas with fatty replacement of parts of the pancreas Consultation: A consultation was placed with the hospitalist, Dr. Enamorado. The case was discussed and diagnostics were reviewed. The patient was evaluated in the ER for further treatment. Exam and history seem consistent with intractable vomiting and pain. This could be the patient's chronic pancreatitis. Patient was writhing in pain yelling and screaming. He continued to vomit supposedly in the toilet. He refused to vomit in the emesis bag. Patient was writhing around in the bed yelling and screaming throughout his 5 hour stay in the ER. Medicine was consulted for possible admission. Patient was agreeable to this. Patient kept on requesting for more narcotics. I informed him that he has had enough. By the evaluation outlined above emergent etiologies such as appendicitis, diverticulitis, PUD, biliary pathology, UTI, obstruction, mesenteric ischemia, aortic pathology, infections, inflammatory bowel disease, renal colic, as well as others were deemed relatively unlikely. The pt informed about the findings as listed above. All questions were answered and pleased with the treatment. Case reviewed with my attending The chart was completed utilizing [employer] voice recognition software. Grammatical errors, random word insertions, pronoun errors, and incomplete sentences are an occassional consequence of this system due to software limitations, ambient noise, and hardware issues. Any formal questions or concerns about the content, text, or information contained within the body of this dictation should be directly addressed to the physician assistant branch operations manager for clarification. Medical Decision As above Medication Reconcilliation Current Medication List: was personally reviewed by me Blood Pressure Screening Patient's blood pressure: Normal blood pressure Impression Primary Impression: Intractable vomiting Additional Impression: Intractable epigastric abdominal pain Departure Information Dispostion Being Evaluated By Hospitalist Condition FAIR Referrals No Doctor, Assigned (PCP) Patient Instructions My [facility] Health Problem Qualifiers Primary Impression: Intractable vomiting Vomiting type: unspecified Nausea presence: with nausea Qualified Codes: R11.2 - Nausea with vomiting, unspecified
[2017-11-29] MEDS ORDERED: HYDROmorphone INJ 0.5 MG/0.5 ML SYR IV PRN ×2 (03:15)
[2017-11-29 03:34] LABS: BASO % 0.2 %; BASO ABS # 0.01 K/uL (0-0.2); EOS % 3.6 %; EOS ABS # 0.18 K/uL (0-0.5); HEMATOCRIT 39.3 % (42-52); IG# 0.02 K/uL (0.00-0.02); LYMPH ABS # 1.58 K/uL (1.2-3.4); MEAN CELL VOLUME 89.3 fL (80-100); MEAN CORPUSCULAR HEMOGLOBIN 31.8 pg (25-34); MEAN CORPUSCULAR HGB CONC 35.6 g/dl (32-36); MEAN PLATELET VOLUME 9.3 fL (7.4-10.4); MONO % 9.5 %; MONO ABS # 0.47 K/uL (0.11-0.59); NEUT % 54.3 %; NEUT ABS # 2.68 K/uL (1.4-6.5); PLATELET COUNT 130 K/uL (130-400); RED CELL DISTRIBUTION WIDTH CV 12.5 % (11.5-14.5); RED CELL DISTRIBUTION WIDTH SD 39.9 fL (36.4-46.3); WHITE BLOOD COUNT 4.94 K/uL (4.8-10.8)
[2017-11-29 03:40] VITALS: BP 107/59; PULSE 87; TEMP 37; O2SAT 97; BMI 27.7
[2017-11-29] MEDS ORDERED: IV FLUIDS COMPLETED PRN (03:45)
[2017-11-29 03:52] LABS: CALCIUM 8.5 mg/dl (8.5-10.1); CREATININE 0.87 mg/dl (0.60-1.40); POTASSIUM 3.7 mmol/L (3.5-5.1)
[2017-11-29] MEDS ORDERED: IPRATROPIUM BROMIDE NEB SOLN 0.02% 2.5 ML VIAL INH STA (04:01)
[2017-11-29] MEDS ORDERED: LEVALBUTEROL 1.25MG/0.5ML NEB INH STA (04:01)
[2017-11-29] MEDS ORDERED: LEVALBUTEROL 1.25MG/0.5ML NEB INH PRN (04:15)
[2017-11-29] MEDS ORDERED: IPRATROPIUM BROMIDE NEB SOLN 0.02% 2.5 ML VIAL INH PRN (04:15)
--- NOTE | 2017-11-29 04:22 | HISTORY & PHYSICAL EXAMINATION ---
DATE OF ADMISSION: 11/28/2017 PRIMARY CARE PHYSICIAN: Dr. Myers. CHIEF COMPLAINT: Abdominal pain. HISTORY OF PRESENT ILLNESS: History is obtained from the patient and records. Medical history is significant for mood disorder, DM2 on oral meds, reflux, recurrent pancreatitis, alcohol abuse as per records. History of PE as per records, history of chronic pain. History narcotic abuse as per records/terminated medication agreement Recent confinement last year for alcoholic pancreatitis. Last few days, patient noted epigastric discomfort, stabbing, similar to pancreatitis episodes in the past. Patient also had nausea, vomiting, good bowel movement. No fever, no chills, no bloody emesis, no black, no bloody stools. Prior to GI illness, the patient also noted cough symptoms, productive of yellow sputum. Possible sick contacts, denies aspiration. Intractable pain with 3 doses of IV Dilaudid given at the ER. MEDICAL HISTORY: As above. SURGERIES: Appendectomy, cholecystectomy, vascular device placement. Back surgery HOME MEDICATIONS: Include Protonix, Paroxetine, Jardiance. ALLERGIES: No drug allergies. FAMILY HISTORY: There is a family history of mood disorder. Alcoholism, heart disease. 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 REVIEW OF SYSTEMS: As per HPI. All 10 systems reviewed, all other ROS negative. PHYSICAL EXAMINATION: VITAL SIGNS: Blood pressure was noted to be 127/81, pulse rate 109, later 90, RR 16, temperature 37, sats 96 on room air. GENERAL: Uncomfortable, alcoholic fetor SKIN: Flushed, warm. HEENT: Alopecia. [place] palpebral conjunctivae. No ptosis. Dry mucosa. NECK: Supple, nontender. CHEST: Clear to auscultation. No tenderness HEART: Regular rate and rhythm, no murmur. ABDOMEN: Some distention, epigastric tenderness. EXTREMITIES: No edema. No tenderness. No gross deformities. NEUROLOGIC: Coherent. No gross focality. LABS: Hemoglobin was noted to be 14.8, platelets 147. Sodium 140, potassium 3.8, chloride 105, BUN 11, creatinine 1, glucose 244. AST 39, lipase was 63. Troponin negative. CT abdomen, initial read, distended stomach, enteritis, no obstruction, appendix not visualized, appearance of pancreas with fatty replacement, cholecystectomy, and back surgery. Chest x-ray, as per my interpretation, cardiomegaly, no infiltrate. ASSESSMENT: 1. Intractable abdominal pain, nausea, vomiting secondary to acute gastroenteritis. hx substance abuse as per records Incessant declarations that "only Dilaudid 2 mg every 2 hours would work for my abdominal pain." 2. complicated bronchitis, no sepsis. 3. past History recurrent alcoholic pancreatitis 4. DM2, on oral meds. 5. past alcohol abuse as per patient. Patient denies recent alcohol intake in months but reeks of alcohol. 6. hx PE as per records 7. Mood disorder, stable as per patient. PLAN: Observation GMF analgesia, antiemetics judicious narcotic use (I did tell patient I was uncomfortable prescribing IV narcotics for his abdominal pain given emesis symptoms.) supportive measures for gastroenteritis Doxycycline for complicated bronchitis. Check EtOH level, may need DT precautions if abnormal Check urine tox ISS BG goal 140-180, patient due for hemoglobin A1c recheck DVT prophylaxis. Lovenox subQ. Full code. MTDD
[2017-11-29 04:25] VITALS: BP 105/58; PULSE 92; TEMP 36.7; O2SAT 92
[2017-11-29] MEDS ORDERED: THIAMINE HCL 100 MG/ML 2 ML VIAL IV STA (04:38)
[2017-11-29] MEDS ORDERED: LORAZEPAM 2 MG/ML 1 ML VIAL IV PRN (04:45)
[2017-11-29] MEDS ORDERED: GABAPENTIN 600 MG TAB PO SCH (04:45)
[2017-11-29] MEDS ORDERED: OXYCODONE HCL IR 5 MG TAB (IMMEDIATE RELEASE) PO PRN (04:45)
[2017-11-29] MEDS ORDERED: THIAMINE HCL INJ 100 MG in SYRINGE 9 ML IV ONE (05:00)
[2017-11-29] MEDS ORDERED: GABAPENTIN 1200MG LOADING DOSE PO SCH (05:00)
[2017-11-29 05:26] LABS: INR 0.9 (0.9-1.1)
[2017-11-29 06:51] LABS: HEMOGLOBIN A1C 9.4 % (4.5-5.6)
--- NOTE | 2017-11-29 06:56 | DIAGNOSTIC IMAGING REPORT ---
ABD/PELVIS IV CONTRAST ONLY CT DOSE: 912.31 mGycm HISTORY: Pain. Nausea. severe epigastric pain TECHNIQUE: Multiaxial CT images of the abdomen and pelvis were performed following the use of intravenous contrast. A dose lowering technique was utilized adhering to the principles of ALARA. COMPARISON STUDY: 01/15/2017 FINDINGS: Lung bases are clear. Mild gastric distention. Considerable gastric contents are present. Mild fatty replacement of liver. Prior cholecystectomy. The kidneys are uniform in appearance. Spleen is uniform. Mild small bowel ileus versus mild nonspecific enteritis. No significant bowel obstructive change. No significant adenopathy. Nonvisualization of the appendix although the right lower quadrant shows no inflammatory process. IMPRESSION: Mild nonspecific ileus versus mild enteritis. Otherwise no acute process of the abdomen or pelvis. The above report was generated using voice recognition software. It may contain grammatical, syntax or spelling errors. Electronically signed by: Radu Fischer M.D. 11/29/2017 6:55 AM Dictated Date/Time: 11/29/2017 6:49 AM
--- NOTE | 2017-11-29 07:30 | DIAGNOSTIC IMAGING REPORT ---
CHEST ONE VIEW PORTABLE HISTORY: Atypical CHEST PAIN COMPARISON: Chest 06/26/2016. FINDINGS: The lungs are clear. The heart remains borderline enlarged. No pleural effusions. No pneumothorax. IMPRESSION: No significant change compared to the prior study. No acute process. Electronically signed by: Ronak Vega M.D. 11/29/2017 7:29 AM Dictated Date/Time: 11/29/2017 7:28 AM
[2017-11-29 07:37] VITALS: BP 99/63; PULSE 84; TEMP 36.6; O2SAT 97
[2017-11-29] MEDS ORDERED: PAROXETINE 20 MG TAB PO SCH (08:00)
[2017-11-29] MEDS ORDERED: ENOXAPARIN 40 MG/0.4 ML SYR SQ SCH (08:00)
[2017-11-29] MEDS ORDERED: MULTIVITAMIN TAB PO SCH (08:00)
[2017-11-29] MEDS ORDERED: FoLIC ACID INJ 1 MG in SYRINGE 9.8 ML IV SCH (08:00)
[2017-11-29 13:36] VITALS: Ht 182.9 cm; Wt 91.9 kg
[2017-11-29] MEDS: INSULIN ASPART 100 UNITS/ML 3 ML PEN SC SCH ×2 (13:49→17:25)
[2017-11-29] MEDS: GABAPENTIN 600MG Q6H DOSE PO SCH ×2 (13:51→17:26)
[2017-11-29 15:16] VITALS: BP 105/60; PULSE 87; TEMP 36.6; O2SAT 96
--- NOTE | 2017-11-29 18:55 | Progress Note ---
Medicine Progress Note Date & Time of Visit: Nov 29, 2017 at 18:55. Subjective See H&P and discharge summary for more details. Tolerating clear liquids, wants to try solid food, had some increase in abdominal pain after eating solid foods but patient wants to go home, and did not have recurrence of N/V or diarrhea. Objective Last 8 Hrs Date Time Temp Pulse Resp B/P (MAP) Pulse Ox O2 Delivery O2 Flow Rate FiO2 11/29/17 16:00 Room Air 11/29/17 15:16 36.6 87 16 105/60 (75) 96 Room Air 11/29/17 11:00 Room Air Physical Exam: GENERAL: Patient is in no acute distress. HEENT: No acute trauma, normocephalic, mucous membranes moist, no nasal congestion, no scleral icterus. NECK: No stridor, trachea is midline. LUNGS: Clear to auscultation bilaterally, no wheeze, no rhonchi, breath sounds equal. HEART: Without murmurs gallops or rubs, regular rate and rhythm. ABDOMEN: Soft, nontender, bowel sounds positive EXTREMITIES: No cyanosis or edema, full range of motion of all the joints without pain or difficulty, no signs for acute trauma. NEUROLOGIC: Oriented x 3, no acute motor or sensory deficits, no focal weakness. SKIN: No rash, no jaundice, no diaphoresis. Laboratory Results: Last 24 Hours Test 11/28/17 22:46 11/28/17 22:54 11/29/17 00:40 11/29/17 03:22 White Blood Count 6.50 K/uL 4.94 K/uL Red Blood Count 4.58 M/uL 4.40 M/uL Hemoglobin 14.8 g/dL 14.0 g/dL Hematocrit 40.6 % 39.3 % Mean Corpuscular Volume 88.6 fL 89.3 fL Mean Corpuscular Hemoglobin 32.3 pg 31.8 pg Mean Corpuscular Hemoglobin Concent 36.5 g/dl 35.6 g/dl Platelet Count 147 K/uL 130 K/uL Mean Platelet Volume 9.1 fL 9.3 fL Neutrophils (%) (Auto) 56.6 % 54.3 % Lymphocytes (%) (Auto) 29.5 % 32.0 % Monocytes (%) (Auto) 7.2 % 9.5 % Eosinophils (%) (Auto) 6.2 % 3.6 % Basophils (%) (Auto) 0.2 % 0.2 % Neutrophils # (Auto) 3.68 K/uL 2.68 K/uL Lymphocytes # (Auto) 1.92 K/uL 1.58 K/uL Monocytes # (Auto) 0.47 K/uL 0.47 K/uL Eosinophils # (Auto) 0.40 K/uL 0.18 K/uL Basophils # (Auto) 0.01 K/uL 0.01 K/uL RDW Standard Deviation 40.0 fL 39.9 fL RDW Coefficient of Variation 12.5 % 12.5 % Immature Granulocyte % (Auto) 0.3 % 0.4 % Immature Granulocyte # (Auto) 0.02 K/uL 0.02 K/uL Sodium Level 137 mmol/L 139 mmol/L Potassium Level 3.6 mmol/L 3.7 mmol/L Chloride Level 105 mmol/L 108 mmol/L Carbon Dioxide Level 22 mmol/L 23 mmol/L Anion Gap 10.0 mmol/L 8.0 mmol/L Blood Urea Nitrogen 11 mg/dl 10 mg/dl Creatinine 1.04 mg/dl 0.87 mg/dl Est Creatinine Clear Calc Drug Dose 108.2 ml/min 129.3 ml/min Estimated GFR () 100.7 121.7 Estimated GFR (Non- 86.9 105.0 BUN/Creatinine Ratio 10.4 12.0 Random Glucose 244 mg/dl 175 mg/dl Estimated Average Glucose 223 mg/dl Hemoglobin A1c 9.4 % Calcium Level 8.8 mg/dl 8.5 mg/dl Magnesium Level 2.2 mg/dl Total Bilirubin 0.4 mg/dl Direct Bilirubin 0.1 mg/dl Aspartate Amino Transf (AST/SGOT) 39 U/L Alanine Aminotransferase (ALT/SGPT) 46 U/L Alkaline Phosphatase 81 U/L Troponin I < 0.015 ng/ml Total Protein 7.8 gm/dl Albumin 3.5 gm/dl Lipase 63 U/L Bedside Troponin I < 0.030 ng/ml < 0.030 ng/ml Ethyl Alcohol mg/dL 116.0 mg/dl Test 11/29/17 04:26 11/29/17 04:55 11/29/17 07:47 11/29/17 11:57 Bedside Glucose 155 mg/dl 163 mg/dl 118 mg/dl Prothrombin Time 9.7 SECONDS Prothromb Time International Ratio 0.9 Test 11/29/17 13:52 11/29/17 16:34 Urine Color YELLOW Urine Appearance CLEAR Urine pH 5.0 Urine Specific Dora > 1.045 Urine Protein NEG Urine Glucose (UA) 3+ Urine Ketones 1+ Urine Occult Blood NEG Urine Nitrite NEG Urine Bilirubin NEG Urine Urobilinogen NEG Urine Leukocyte Esterase NEG Urine WBC (Auto) 1-5 /hpf Urine RBC (Auto) 0-4 /hpf Urine Hyaline Casts (Auto) 1-5 /lpf Urine Epithelial Cells (Auto) 5-10 /lpf Urine Bacteria (Auto) NEG Urine Opiates Screen POS Urine Methadone, Qualitative NEG Urine Barbiturates NEG Urine Phencyclidine (PCP) Level NEG Ur Amphetamine/Methamphetamine NEG MDMA (Ecstasy) Screen NEG Urine Benzodiazepines Screen NEG Urine Cocaine Metabolite NEG Urine Marijuana (THC) NEG Bedside Glucose 142 mg/dl Assessment & Plan ABDOMINAL PAIN/NAUSEA/VOMITING: -likely secondary to acute gastroenteritis. -CT Abd/pelvis showed mild enteritis; no evidence of pancreatitis -N/V resolved, only complains of pain after eating regular foods but nausea resolved -tolerated clear liquids without difficulty -hx substance abuse as per records; Incessant declarations that "only Dilaudid 2 mg every 2 hours would work for my abdominal pain." BRONCHITIS: -no wheezing, chest tightness, or persistent cough noted -patient reports symptoms improving -likely viral, will stop abx ALCOHOL ABUSE: per history, however patient has elevated alcohol levels on admission -also with history of recurrent alcoholic pancreatitis, but lipase and CT do not support pancreatitis, nor does the physical exam -Patient denies recent alcohol intake in months but reeks of alcohol. DM TYPE II -not well controlled -on oral meds. -Diabetes education consulted PRIOR Hx of PE: -as per records MOOD DISORDER: -stable as per patient. Current Inpatient Medications: Current Inpatient Medications Medications (Trade) Dose Ordered Sig/Carmita Route Start Time Stop Time Status Last Admin Dose Admin Ioversol (Optiray 320) 100 ml UD PRN IV 11/29/17 01:30 12/03/17 01:29 Ketorolac Tromethamine (Toradol Inj) 15 mg Q6H PRN IV. 11/29/17 03:00 12/04/17 02:59 11/29/17 14:37 15 MG Prochlorperazine Edisylate 5 mg/ Syringe 5 ml @ 5 mls/min Q6H PRN IV 11/29/17 03:00 12/29/17 02:59 Acetaminophen 650 mg/Empty Bag 65 ml @ 260 mls/hr Q6H PRN IV 11/29/17 03:00 12/29/17 02:59 11/29/17 17:21 260 MLS/HR Pantoprazole Sodium (Protonix Tab) 40 mg DAILY PO 11/30/17 08:00 12/30/17 08:59 Paroxetine HCl (pAXil TAB) 20 mg DAILY PO 11/29/17 08:00 12/29/17 08:59 11/29/17 09:53 20 MG Ondansetron HCl (Zofran Inj) 4 mg Q6H PRN IV 11/29/17 03:00 12/29/17 02:59 Enoxaparin Sodium (Lovenox Inj) 40 mg Q24H SQ 11/29/17 08:00 12/29/17 07:59 Acetaminophen (Tylenol Tab) 650 mg Q4H PRN PO 11/29/17 03:00 12/29/17 02:59 Insulin Aspart (novoLOG ASPART) SLIDING SCALE If C... ACHS SC 11/29/17 11:00 12/29/17 10:59 11/29/17 17:25 2 UNITS Glucose (Glucose 40% Gel) 15-30 GRAMS 15 GRAMS... UD PRN PO 11/29/17 03:00 12/29/17 02:59 Glucose (Glucose Chew Tab) 4-8 Tablets 4 Tabl... UD PRN PO 11/29/17 03:00 12/29/17 02:59 Dextrose (Dextrose 50% 50ML Syringe) 25-50ML OF 50% DW IV FOR... UD PRN IV 11/29/17 03:00 12/29/17 02:59 Glucagon (Glucagon Inj) 1 mg UD PRN SQ 11/29/17 03:00 12/29/17 02:59 Insulin Glargine (Lantus Solostar Pen) 5 units DAILY SC 11/30/17 08:00 12/30/17 08:59 Miscellaneous (Iv Fluids Completed) 1 ea PRN PRN N/A 11/29/17 03:45 11/29/18 03:44 11/29/17 14:47 1 EA Ipratropium [place] (Atrovent 0.02% 0.5MG/2.5ML Neb) 0.5 mg Q4H PRN INH 11/29/17 04:15 12/29/17 04:14 Levalbuterol (Xopenex 1.25MG/ 0.5ML Neb) 1.25 mg Q4H PRN INH 11/29/17 04:15 12/29/17 04:14 Thiamine HCl (Vitamin B-1 Tab) 100 mg QAM PO 11/30/17 08:00 12/30/17 07:59 Multivitamins (Multivitamin Tab) 1 tab QAM PO 11/29/17 08:00 12/29/17 07:59 11/29/17 09:54 1 TAB Lorazepam (Ativan Inj) PRN Dosing -Active Protocol Q1H PRN IV 11/29/17 04:45 12/29/17 04:44 Oxycodone HCl (Roxicodone Immediate Rel Tab) 5 mg Q6H PRN PO 11/29/17 04:45 12/13/17 04:44 11/29/17 13:47 5 MG Acetaminophen (Tylenol Tab) 650 mg Q4H PRN PO 11/29/17 04:45 12/29/17 04:44 Gabapentin (Neurontin Tab) 600 mg Q8H PO 11/30/17 06:00 11/30/17 22:01 Gabapentin (Neurontin Tab) 600 mg Q12H PO 12/01/17 10:00 12/01/17 22:01 Gabapentin (Neurontin Tab) 600 mg Q24H PO 12/02/17 22:00 12/02/17 22:01 Doxycycline Hyclate (Vibramycin Cap) 100 mg BID PO 11/29/17 20:00 12/06/17 19:59 Folic Acid (Folvite Tab) 1 mg QAM PO 11/30/17 08:00 12/30/17 07:59
[2017-11-29] MEDS ORDERED: MAGIC SWIZZLE PO PRN (19:00)
--- NOTE | 2017-11-29 19:04 | Discharge Instructions ---
Discharge Instructions Date of Service Nov 29, 2017. Admission Reason for Admission: Abdominal Pain Discharge Discharge Diagnosis / Problem: Enteritis, Nausea/vomiting/abdominal pain Discharge Goals Goal(s): Therapeutic intervention Activity Recommendations Activity Limitations: resume your previous activity . Current Hospital Diet Patient's current hospital diet: Clear Liquid Diet Discharge Diet Recommended Diet: Low Lactose Diet Pending Studies Studies pending at discharge: no Laboratory Results Hemoglobin A1c Test 11/28/17 22:46 Range/Units Estimated Average Glucose 223 mg/dl Hemoglobin A1c 9.4 H 4.5-5.6 % Medical Emergencies . Who to Call and When: Medical Emergencies: If at any time you feel your situation is an emergency, please call 911 immediately. . Non-Emergent Contact Non-Emergency issues call your: Primary Care Provider . . "Provider Documentation" section prepared by Alessandra Calero. .
[2017-11-29 19:25] VITALS: BP 105/60; PULSE 87; TEMP 36.6; O2SAT 96
[2017-11-29] MEDS ORDERED: DEXAMETHASONE CONC SOLN 0.078 MG, NYSTATIN SUSP 0.625 ML, DiphenhydrAMINE HCL SYRUP 6.2... PO ONE ×5 (19:30)
[2017-11-29] MEDS ORDERED: LIDOCAINE HCL 2% VISCOUS SOLN 60 ML, DiphenhydrAMINE HCL SYRUP 150 MG, ALUMINUM/MAGNESI... MT PRN ×4 (19:45)
[2017-11-29] MEDS ORDERED: LIDOCAINE HCL 2% VISCOUS SOLN 1.25 ML, DiphenhydrAMINE HCL SYRUP 3.125 MG, ALUMINUM/MAG... MT ONE ×4 (19:45)
[2017-11-29] MEDS ORDERED: DOXYCYCLINE IV 100 MG in DEXTROSE 5% 100ML 100 ML IV SCH (20:00)
[2017-11-29] MEDS ORDERED: DOXYCYCLINE HYCLATE 100 MG CAP PO SCH (20:00)
[2017-11-30] MEDS ORDERED: GABAPENTIN 600MG Q8H DOSE PO SCH (06:00)
[2017-11-30] MEDS ORDERED: THIAMINE HCL 100 MG TAB PO SCH (08:00)
[2017-11-30] MEDS ORDERED: INSULIN GLARGINE SOLOSTAR 100 UNITS/ML 3 ML PEN SC SCH (08:00)
[2017-11-30] MEDS ORDERED: PANTOprazole SOD 40 MG TAB PO SCH (08:00)
--- NOTE | 2017-11-30 08:48 | Discharge Summary ---
Discharge Summary Date of Service Nov 30, 2017. Discharge Summary Admission Date: Nov 29, 2017 at 02:46 Discharge Date: Nov 29, 2017 Discharge Disposition: Home Principal Diagnosis: Enteritis, abdominal pain, Nausea/vomiting Medication Reconciliation Continued Medications: Empagliflozin (Jardiance) 25 Mg Tab 25 MG PO DAILY Pantoprazole (Pantoprazole Sodium) 40 Mg Tab 40 MG PO DAILY Paroxetine (Paroxetine HCl) 20 Mg Tab 20 MG PO DAILY Admission Information HPI (per Admitting provider): HISTORY OF PRESENT ILLNESS: History is obtained from the patient and records. Medical history is significant for mood disorder, DM2 on oral meds, reflux, recurrent pancreatitis, alcohol abuse as per records. History of PE as per records, history of chronic pain. History narcotic abuse as per records/terminated medication agreement Recent confinement last year for alcoholic pancreatitis. Last few days, patient noted epigastric discomfort, stabbing, similar to pancreatitis episodes in the past. Patient also had nausea, vomiting, good bowel movement. No fever, no chills, no bloody emesis, no black, no bloody stools. Prior to GI illness, the patient also noted cough symptoms, productive of yellow sputum. Possible sick contacts, denies aspiration. Intractable pain with 3 doses of IV Dilaudid given at the ER. MEDICAL HISTORY: As above. SURGERIES: Appendectomy, cholecystectomy, vascular device placement. Back surgery HOME MEDICATIONS: Include Protonix, Paroxetine, Jardiance. ALLERGIES: No drug allergies. FAMILY HISTORY: There is a family history of mood disorder. Alcoholism, heart disease. 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 REVIEW OF SYSTEMS: As per HPI. All 10 systems reviewed, all other ROS negative. PHYSICAL EXAMINATION: VITAL SIGNS: Blood pressure was noted to be 127/81, pulse rate 109, later 90, RR 16, temperature 37, sats 96 on room air. GENERAL: Uncomfortable, alcoholic fetor SKIN: Flushed, warm. HEENT: Alopecia. [place] palpebral conjunctivae. No ptosis. Dry mucosa. NECK: Supple, nontender. CHEST: Clear to auscultation. No tenderness HEART: Regular rate and rhythm, no murmur. ABDOMEN: Some distention, epigastric tenderness. EXTREMITIES: No edema. No tenderness. No gross deformities. NEUROLOGIC: Coherent. No gross focality. Hospital Course ABDOMINAL PAIN/NAUSEA/VOMITING: -likely secondary to acute gastroenteritis. -CT Abd/pelvis showed mild enteritis; no evidence of pancreatitis -N/V resolved, only complains of pain after eating regular foods but nausea resolved -tolerated clear liquids without difficulty -hx substance abuse as per records; Incessant declarations that "only Dilaudid 2 mg every 2 hours would work for my abdominal pain." BRONCHITIS: -no wheezing, chest tightness, or persistent cough noted -patient reports symptoms improving -likely viral, will stop abx ALCOHOL ABUSE: per history, however patient has elevated alcohol levels on admission -also with history of recurrent alcoholic pancreatitis, but lipase and CT do not support pancreatitis, nor does the physical exam -Patient denies recent alcohol intake in months but ethanol levels elevated on admission DM TYPE II -not well controlled -on oral meds. -Diabetes education consulted PRIOR Hx of PE: -as per records MOOD DISORDER: -stable as per patient. Total time spent on discharge = 35 This includes examination of the patient, discharge planning, medication reconciliation, and communication with other providers. Discharge Instructions See patient instructions
[2017-12-01] MEDS ORDERED: GABAPENTIN 600MG Q12H DOSE PO SCH (10:00)
[2017-12-02] MEDS ORDERED: GABAPENTIN 600MG X1 DOSE PO SCH (22:00)
== END 2017-11-29 20:00 | disposition home or self-care (01) ==
LOC: C.EDB 22:17 → EEVIPCON 11-29 02:46 → C.4E 11-29 02:46 → ENRESERV 11-29 03:06
PROVIDERS: ADMIT Internal Medicine; ATTEND Internal Medicine
DX: K52.9 Noninfective gastroenteritis and colitis, unspecified (principal); E11.9 Type 2 diabetes mellitus without complications; J40 Bronchitis, not specified as acute or chronic; K86.0 Alcohol-induced chronic pancreatitis; F10.188 Alcohol abuse with other alcohol-induced disorder; F32.9 Major depressive disorder, single episode, unspecified; K22.70 Barrett's esophagus without dysplasia; Z79.84 Long term (current) use of oral hypoglycemic drugs; Z86.711 Personal history of pulmonary embolism; Z90.49 Acquired absence of other specified parts of digestive tract; Z98.1 Arthrodesis status; Z82.49 Family history of ischemic heart disease and other diseases of the circulatory system; Z81.1 Family history of alcohol abuse and dependence; Z81.8 Family history of other mental and behavioral disorders

== ENCOUNTER 2017-12-18 17:54 | Emergency (ER) | payer OTHER ==
[~2017-12-18] VITALS: Ht 182.9 cm; Wt 94.3 kg
[~2017-12-18 17:54] MED LIST changes: -CRFUDL PO; +EMPA1TAB3 PO; -MULTTAB PO; -PANT40TA PO; +PANT40TA2 PO; -PARO1TAB27 PO; +PXL20 PO; -THM100 PO; -TRAM-10 PO
[2017-12-18 17:58] VITALS: TEMP 37; Ht 182.9 cm; Wt 94.3 kg
[2017-12-18] MEDS ORDERED: OXYCODONE HCL IR 5 MG TAB (IMMEDIATE RELEASE) PO STA (18:10)
[2017-12-18] MEDS ORDERED: CYCLOBENZAPRINE HCL 5 MG TAB PO STA (18:10)
[2017-12-18] MEDS ORDERED: IBUPROFEN 600 MG TAB PO STA (18:10)
--- NOTE | 2017-12-18 18:15 | EMERGENCY ROOM VISIT NOTE ---
History Report prepared by Ester: Jory Huerta Under the Supervision of: Dr. Kareem Mchugh M.D. 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 He describes it as a stabbing pain that begins in his right knee and radiates to the right side of his back. He states he had a fever of 101 a couple of days ago but it has resolved. He denies any urinary symptoms, recent trauma, or recent surgeries. The patient reports that a few years ago he had a blood clot in his right leg that went up to his lung and his pain today feels similar. He also notes he had similar pain to this a few months ago as well but let it pass on its own. 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 Negative recent trauma or recent surgeries. Review of Systems See HPI for pertinent positives & negatives. A total of 10 systems reviewed and were otherwise negative. Past Medical & Surgical Medical Problems: (1) Abdominal pain (2) Alcohol abuse (3) Alcohol intoxication (4) Renae's esophagus (5) Depression (6) Depression (7) DM type 2 (diabetes mellitus, type 2) (8) Gastroesophageal reflux disease (9) H/O acute pancreatitis (10) History of substance abuse (11) Intentional drug overdose (12) Lumbar degenerative disc disease (13) Mood disorder (14) Mood disorder (15) Panic disorder (16) Pulmonary embolism (17) Suicidal ideation (18) Suicidal ideation (19) Suicide attempt Surgical Problems: (1) H/O esophagogastroduodenoscopy (2) H/o lumbar fusion (3) History of appendectomy (4) History of cholecystectomy (5) Hx of appendectomy (6) Insertion of implantable venous access port Family History Depression FATHER FH: alcohol abuse FATHER FH: cancer FH: heart disease FH: manic depression AUNT Social History Smoking Status: Never Smoker Alcohol Use: occasionally Drug Use: none, other Marital Status: Housing Status: lives with family Occupation Status: unemployed Current/Historical Medications Scheduled Empagliflozin (Jardiance), 25 MG PO DAILY Pantoprazole (Pantoprazole Sodium), 40 MG PO DAILY Paroxetine (Paroxetine HCl), 20 MG PO DAILY Scheduled PRN Carisoprodol (Soma), 350 MG PO Q8 PRN for Muscle Spasms Allergies Coded Allergies: NO KNOWN DRUG ALLERGIES (Verified Allergy, Unknown, NONE, 01/15/17) Physical Exam Vital Signs Date Time Temp Pulse Resp B/P (MAP) Pulse Ox O2 Delivery O2 Flow Rate FiO2 12/18/17 19:47 104 15 112/73 94 12/18/17 17:58 37.0 109 18 130/82 94 Room Air Physical Exam GENERAL: Patient is in no acute distress. HEENT: No acute trauma, normocephalic atraumatic, mucous membranes moist, no nasal congestion, no scleral icterus. NECK: No stridor, no adenopathy, no meningismus, trachea is midline. LUNGS: Clear to auscultation bilaterally, no wheeze, no rhonchi, breath sounds equal. HEART: Without murmurs gallops or rubs, regular rate and rhythm. ABDOMEN: Soft, nontender, bowel sounds positive, no hernias, no peritonitis. EXTREMITIES: No pedal edema. Contusion to the distal medial right thigh that seems slightly tender. No erythema, no drainage. Right groin shows no evidence of adenopathy. Strong right femoral pulse NEUROLOGIC: Oriented x 3, no acute motor or sensory deficits, no focal weakness. I cannot elicit reflexes in either of his lower extremities. SKIN: No rash, no jaundice, no diaphoresis. Medical Decision & Procedures ER Provider Diagnostic Interpretation: Radiology results as stated below per my review and radiologist interpretation: R VENOUS DOPP LOWER EXT UNILAT CLINICAL HISTORY: 42 years-old Male presenting with swelling, pain, h/o dvt. TECHNIQUE: Real-time grayscale and color and spectral Doppler ultrasound imaging of the veins of the right lower extremity was performed. Compression and augmentation were also utilized. COMPARISON: 01/12/2016. FINDINGS: Right: Common femoral vein: Patent. Greater saphenous vein: Patent. Deep femoral vein: Patent. Femoral vein: Patent. Popliteal vein: Patent. Calf veins: Patent. Other: No sonographic abnormality at the site of clinical interest. IMPRESSION: No evidence of deep venous thrombosis. Electronically signed by: Harman Liao M.D. 12/18/2017 7:21 PM Dictated Date/Time: 12/18/2017 7:20 PM Medications Administered Medications (Trade) Dose Ordered Sig/Carmita Route Start Time Stop Time Status Last Admin Dose Admin Cyclobenzaprine HCl (Flexeril Tab) 10 mg NOW STAT PO 12/18/17 18:10 12/18/17 18:12 DC 12/18/17 18:20 10 MG Ibuprofen (Motrin Tab) 600 mg NOW STAT PO 12/18/17 18:10 12/18/17 18:12 DC 12/18/17 18:20 600 MG Oxycodone HCl (Roxicodone Immediate Rel Tab) 5 mg NOW STAT PO 12/18/17 18:10 12/18/17 18:12 DC 12/18/17 18:21 5 MG ED Course 1803: The patient was evaluated in room A12. A complete history and physical exam was performed. 1809: Ordered Oxycodone HCl 5 mg PO, Ibuprofen 600 mg PO, Flexeril Tab 10 mg PO 1929: Reevaluated the patient. Discussed results and discharge instructions: He verbalized understanding and agreement. The patient is ready for discharge. 1936: I PDMPed the patient at this time. He has no recent narcotic prescriptions. Medical Decision Differential diagnosis: Etiologies such as nerve impingement, sciatica, cellulitis, DVT, contusion, muscle strain, lumbar disc disease as well as others were entertained. The patient presents with some right thigh and leg pain. He also has some pain in his back. He has a history of DVT and was concerned that he could have a recurrent clot. There is no rash in the area to suggest a cellulitis. No right leg edema. He has not suffered recent trauma. An ultrasound of the right leg was done, no DVT noted. The patient was given an oral Flexeril, oral oxycodone, oral Motrin. He still has discomfort but the medication has helped some. The patient's pain is likely referred from his back. He has had back surgery. He was reassured about the negative DVT study. He will follow with his doctor' s office and with his back specialist. He was given a prescription for Soma for muscle relaxation. Heat to the area, massage were recommended. If worsening, he can return. [place] Drug Monitoring Program Search Results: patient reviewed within database, no issues identified Drug Monitoring Findings: no recent narcotic prescriptions Medication Reconcilliation Current Medication List: was personally reviewed by me Blood Pressure Screening Patient's blood pressure: Normal blood pressure Blood pressure disposition: Did not require urgent referral Impression Primary Impression: Leg pain, right Additional Impression: History of DVT (deep vein thrombosis) Scribe Attestation The scribe's documentation has been prepared under my direction and personally reviewed by me in its entirety. I confirm that the note above accurately reflects all work, treatment, procedures, and medical decision making performed by me. Departure Information Dispostion Home / Self-Care Prescriptions Carisoprodol (SOMA) 350 Mg Tab 350 MG PO Q8 Y for Muscle Spasms, #12 TAB Prov: Kareem Mchugh M.D. 12/18/17 Referrals No Doctor, Assigned (PCP) Forms HOME CARE DOCUMENTATION FORM, IMPORTANT VISIT INFORMATION Patient Instructions My [facility] Additional Instructions use muscle relaxers as prescribed otc pain meds as needed heat and massage may help no heavy lifitng talk with your back specialist and red herron as we discussed no clot by ultrasound today Problem Qualifiers
--- NOTE | 2017-12-18 19:22 | DIAGNOSTIC IMAGING REPORT ---
R VENOUS DOPP LOWER EXT UNILAT CLINICAL HISTORY: 42 years-old Male presenting with swelling, pain, h/o dvt. TECHNIQUE: Real-time grayscale and color and spectral Doppler ultrasound imaging of the veins of the right lower extremity was performed. Compression and augmentation were also utilized. COMPARISON: 01/12/2016. FINDINGS: Right: Common femoral vein: Patent. Greater saphenous vein: Patent. Deep femoral vein: Patent. Femoral vein: Patent. Popliteal vein: Patent. Calf veins: Patent. Other: No sonographic abnormality at the site of clinical interest. IMPRESSION: No evidence of deep venous thrombosis. Electronically signed by: Harman Liao M.D. 12/18/2017 7:21 PM Dictated Date/Time: 12/18/2017 7:20 PM
[2017-12-18] MEDS ORDERED: CARI350T27 PO (19:41)
[2017-12-18 19:47] VITALS: BP 112/73; PULSE 104; O2SAT 94
== END 2017-12-18 19:48 | disposition home or self-care (01) ==
LOC: C.EDB 17:56 → C.EDA 19:48
DX: M79.604 Pain in right leg (principal); Z86.718 Personal history of other venous thrombosis and embolism; K22.70 Barrett's esophagus without dysplasia; E11.9 Type 2 diabetes mellitus without complications; K21.9 Gastro-esophageal reflux disease without esophagitis; F39 Unspecified mood [affective] disorder

== ENCOUNTER 2018-03-01 18:21 | Inpatient (IN) | payer OTHER ==
[~2018-03-01] VITALS: Ht 182.9 cm; Wt 96.5 kg
[2018-03-01] MEDS ORDERED: SODIUM CHLORIDE 0.9% 1000ML 2,000 ML IV STA (18:47)
[2018-03-01] MEDS ORDERED: MoRPHine SULFATE 10 MG/ML CARP/VIAL IV STA (18:47)
[2018-03-01] MEDS ORDERED: ONDANSETRON INJ 2 MG/ML 2 ML VIAL IV STA (18:47)
[2018-03-01] MEDS ORDERED: OPTIRAY 320 IV PRN ×2 (19:00→23:30)
--- NOTE | 2018-03-01 19:09 | DIAGNOSTIC IMAGING REPORT ---
CHEST ONE VIEW PORTABLE CLINICAL HISTORY: Atypical chest pain and shortness of breath COMPARISON STUDY: 11/28/2017 FINDINGS: The cardiac and mediastinal contours are normal. There is no evidence of focal pulmonary consolidation. There is no evidence of failure. No pleural effusions are visualized.[ IMPRESSION: No active disease in the chest. Electronically signed by: Cheng Diaz M.D. 03/01/2018 7:08 PM Dictated Date/Time: 03/01/2018 7:07 PM
[2018-03-01 19:52] LABS: BASO % 0.4 %; BASO ABS # 0.03 K/uL (0-0.2); EOS % 0.9 %; EOS ABS # 0.07 K/uL (0-0.5); HEMATOCRIT 43.8 % (42-52); HEMOGLOBIN 16.4 g/dL (14.0-18.0); IG# 0.02 K/uL (0.00-0.02); LYMPH % 49.6 %; LYMPH ABS # 3.74 K/uL (1.2-3.4); MEAN CELL VOLUME 89.4 fL (80-100); MEAN CORPUSCULAR HEMOGLOBIN 33.5 pg (25-34); MEAN CORPUSCULAR HGB CONC 37.4 g/dl (32-36); MEAN PLATELET VOLUME 9.5 fL (7.4-10.4); MONO % 6.9 %; MONO ABS # 0.52 K/uL (0.11-0.59); NEUT % 41.9 %; NEUT ABS # 3.16 K/uL (1.4-6.5); PLATELET COUNT 114 K/uL (130-400); RED CELL DISTRIBUTION WIDTH CV 12.6 % (11.5-14.5); WHITE BLOOD COUNT 7.54 K/uL (4.8-10.8)
[2018-03-01 20:01] LABS: ALBUMIN 3.5 gm/dl (3.4-5.0); ALKALINE PHOSPHATASE 109 U/L (45-117); ALT/SGPT 27 U/L (12-78); AST/SGOT 19 U/L (15-37); BLOOD UREA NITROGEN 8 mg/dl (7-18); CALCIUM 9.2 mg/dl (8.5-10.1); CARBON DIOXIDE 20 mmol/L (21-32); GLUCOSE 386 mg/dl (70-99); LIPASE 85 U/L (73-393); POTASSIUM 3.9 mmol/L (3.5-5.1); SODIUM 131 mmol/L (136-145); TOTAL PROTEIN 8.5 gm/dl (6.4-8.2)
[2018-03-01] MEDS ORDERED: NovoLIN-R INSULIN PER UNIT CHARGE SC STA (20:02)
[2018-03-01] MEDS ORDERED: THIAMINE HCL 100 MG/ML 2 ML VIAL IV STA (20:45)
[2018-03-01] MEDS ORDERED: FLINTSTONES COMPLETE CHEWABLE TAB PO SCH (20:45)
[2018-03-01] MEDS ORDERED: HYDROmorphone INJ 1 MG/ML SYR IV STA (20:45)
[2018-03-01] MEDS ORDERED: FoLIC ACID INJ 1 MG in SYRINGE 9.8 ML IV SCH (20:45)
--- NOTE | 2018-03-01 21:17 | DIAGNOSTIC IMAGING REPORT ---
CT ABD/PELVIS IV CONTRAST ONLY CLINICAL HISTORY: Generalized abdominal pain COMPARISON STUDY: The 2017 TECHNIQUE: Following the IV administration of 114 mL of Optiray-320, CT scan of the abdomen and pelvis was performed from the lung bases to the proximal femurs. Images are reviewed in the axial, sagittal, and coronal planes. IV contrast was administered without complication. A dose lowering technique was utilized adhering to the principles of ALARA. CT DOSE: 635.95 mGy.cm FINDINGS: Lower chest: The heart is normal in size and configuration, without pericardial effusion. The lung bases and pleural spaces are clear. Liver: There is mild hepatic steatosis. No focal masses are visualized. Gallbladder: Surgically absent Spleen: Borderline enlarged measuring 12.5 cm Pancreas: Unremarkable. Adrenal glands: Unremarkable. Kidneys: There is symmetric renal cortical enhancement. The kidneys are normal in size without hydronephrosis. Bowel: There are no transition zones indicate bowel obstruction. There is no evidence of acute diverticulitis. By history the appendix is surgically absent. Peritoneum: There is no intraperitoneal free air or abdominal ascites. Vasculature: The abdominal aorta is normal in course and caliber. Adenopathy: None. Pelvic viscera: There is minimal bladder distention. Skeletal structures: Postsurgical changes are present within the lumbar spine. IMPRESSION: 1. No evidence of bowel obstruction. No evidence of free air 2. No evidence of acute diverticulitis 3. Minimal bladder distention 4. Borderline splenomegaly Electronically signed by: Cheng Diaz M.D. 03/01/2018 9:16 PM Dictated Date/Time: 03/01/2018 9:12 PM
[2018-03-01] MEDS ORDERED: EMPA1TAB3 PO (22:29)
[2018-03-01] MEDS ORDERED: ALUMINUM/MAGNESIUM/SIMETH (MAALOX MAX) 30 ML UDC PO PRN (22:30)
[2018-03-01] MEDS ORDERED: NITROGLYCERIN 0.4 MG SL PER TAB CHARGE SL PRN (22:30)
[2018-03-01] MEDS ORDERED: POLYETHYLENE (MIRALAX) 17 GM PACK PO PRN (22:30)
[2018-03-01] MEDS ORDERED: LORAZEPAM 1 MG TAB PO PRN (22:30)
[2018-03-01] MEDS: ACETAMINOPHEN 325 MG TAB PO PRN (22:39)
[2018-03-01] MEDS ORDERED: IV FLUIDS COMPLETED PRN (23:00)
[2018-03-02] VITALS (8 sets, daily range): BP systolic 115–141; BP diastolic 68–80; PULSE 85–119; TEMP 36.6–38.5; O2SAT 93–97; BMI 28.2
--- NOTE | 2018-03-02 00:03 | HISTORY & PHYSICAL EXAMINATION ---
DATE OF ADMISSION: 03/01/2018 CHIEF COMPLAINT: Abdominal pain, chest pain. HISTORY OF PRESENT ILLNESS: This is a 42-year-old male with past medical history significant for alcoholism, recurrent pancreatitis, diabetes, mood disorder, reflux, history of PE as per records, history of chronic pain, history of narcotic abuse as per records . He was recently here for nausea, vomiting , abdominal pain from enteritis and discharged on 11/29/2017. Comes today because of ongoing abdominal pain and nausea since last 2 days. He says severe epigastric pain radiate to his back, about 7-8/10 in severity. There was some nausea and vomiting. He said he vomited 4 times today and his pain is radiating to his chest. When he came in, he has been short of breath, but right now his breathing is okay. He drank 4 beers of alcohol today. Denies any blood in the stools. Normal bowel and bladder movements. Says whenever he eats for last two days the pain is getting worse. Has some headaches and runny nose, has blurry visions. No earache, no sore throat, no difficulty swallowing. No cough, no fever, no chills. The patient was tachycardic in the ER. When he came in, his sugars were running high in the 386 but after giving insulin, his sugars in the 136. He says he is on Jardiance at home, but he was not checking his blood sugars because his glucometer is broken down. Requesting for pain medications. He says 2 mg of Dilaudid every 2 hours works for him. ALLERGIES: No known drug allergies. PAST MEDICAL HISTORY: As mentioned above. PAST SURGICAL HISTORY: Appendectomy, cholecystectomy, vascular device implant, back surgery. MEDICATIONS: Protonix, paroxetine, Jardiance. FAMILY HISTORY: Significant for mood disorder, alcoholism, heart disease. SOCIAL HISTORY: No smoking, but chews tobacco, drinking alcohol every day. REVIEW OF SYMPTOMS: As per HPI. Rest of review of symptoms negative. PHYSICAL EXAMINATION: GENERAL: The patient is of moderate built, not in distress. VITAL SIGNS: Temperature 36.7, pulse 120s, respiratory rate 18, blood pressure 109/70, oxygen 94% room air. HEENT: No pallor, no icterus. Pupils equal, round, reactive to light. NECK: No JVD, no neck masses, no carotid bruits. CARDIOVASCULAR: S1, S2 heard. Tachycardia. No murmurs, no gallop. RESPIRATORY SYSTEM: Normal AP diameter. No accessory muscle use. No wheezing. No crackles. ABDOMEN: Soft, bowel sounds present. Diffuse tender. Some mild guarding. No rigidity. No distention. CENTRAL NERVOUS SYSTEM: Cranial nerves II-XII grossly intact. Nonfocal. EXTREMITIES: No edema, no erythema. LABS: WBC 7.5, hemoglobin 16.4, hematocrit 43.8, platelets 114. Sodium 131, potassium 3.8, chloride 97, bicarb 20, BUN 8, creatinine 1.1, serum glucose 386 and repeat was 136, calcium 9.2, total bilirubin 0.6, direct bilirubin 0.2, AST 19, ALT 27, alkaline phosphatase 109. Troponin I less than 0.015. Lipase 85. Beta-hydroxybutyrate acid 3.62. Urinalysis pending. Ethyl alcohol pending. DIAGNOSTIC DATA: CT of the abdomen and pelvis, no evidence of bowel obstruction, no evidence of free air, no evidence of acute diverticulitis, minimal bladder distention, borderline splenomegaly. Chest x-ray, no active disease in the chest. EKG: Sinus tachycardia, rate of 130, no significant change from previous EKG. ASSESSMENT AND PLAN: This 42-year-old male presents with severe abdominal pain radiating to chest. 1. Severe abdominal pain in the epigastric region, radiating to his chest. history of alcoholism, history of recurrent pancreatitis but lipase was normal and CT of the abdomen and pelvis with contrast, no pancreatitis. Possibly gastritis from his alcoholism. He is on Protonix, which we will continue. IV fluids, n.p.o. for now and if his symptoms do not improve, we will consider consulting GI. 2. Chest pain, tachycardia. He states the pain is radiating from his abdomen to his chest, but we will do serial cardiac enzymes and follow repeat EKG. We will follow the D-dimer. If D-dimer if elevated, we will do CT of the chest to rule out pulmonary embolus. 3. Alcoholism. Last alcohol was today. We will check the alcohol level. We will place him on alcohol withdrawal protocol with gabapentin and Ativan p.r.n., thiamine, folic acid, and multivitamins. 4. Mood disorder. Continue paroxetine. 5. Diabetes. The patient was in mild DKA when he came in but he was given insulin and sugars are 136 right [address] will place him on Lantus insulin sliding scale. Hold Jardiance. Follow HbA1c levels. The patient not checking his blood sugar at home recently because his glucometer is broken down. We will try to arrange for glucometer at discharge. 6. Thrombocytopenia. Platelets 114. Last admission they were normal. We will follow the labs in a.m. 7. DVT prophylaxis scds DISPOSITION: Observation, tele floor. Expect to discharge home and follow with his family doctor. MARGARET
[2018-03-02] MEDS ORDERED: GABAPENTIN 600 MG TAB PO STA (00:09)
--- NOTE | 2018-03-02 00:29 | EMERGENCY ROOM VISIT NOTE ---
History Report prepared by Sivaibshahrzad: Rivas Summers Under the Supervision of: Dr. Geoff Andrade D.O. First contact with patient: 18:37 Chief Complaint: CHEST PAIN Stated Complaint: CHEST PAIN, SOB, ABDOMINAL PAIN,BACK PAIN, History of Present Illness The patient is a 42 year old male who presents to the Emergency Room with complaints of constant upper abdominal pain that began 2 days ago. He rates his pain as a 7/10 in severity. The patient states that his abdominal pain has been radiating to his back. He states today, the pain has been radiating into his chest. The patient states the pain has been causing him to be short of breath. He notes he has also been nauseous and vomiting. The patient states that today he noticed burning with urination. The patient states that he does have a history of pancreatitis since 2008. He reports his pancreatitis occurred from drinking. The patient states he has been drinking heavily for the past 30 years. He states he did have a 6 pack today. The patient states he has been to the hospital multiple times for pancreatitis. He reports he does have a history of type 2 diabetes, The patient denies hypertension, hyperlipidemia, CAD, history of sudden at a young age, and smoking. Source of History: patient Onset: 2 days ago Position: abdomen (upper) Symptom Intensity: 7/10 Timing: constant Associated Symptoms: + chest pain, + SOB, + nausea, + vomiting, + back pain , + urinary symptoms Review of Systems See HPI for pertinent positives & negatives. A total of 10 systems reviewed and were otherwise negative. Past Medical & Surgical Medical Problems: (1) Abdominal pain (2) Alcohol abuse (3) Alcohol intoxication (4) Renae's esophagus (5) Chest pain (6) Depression (7) Depression (8) DM type 2 (diabetes mellitus, type 2) (9) Gastroesophageal reflux disease (10) H/O acute pancreatitis (11) History of substance abuse (12) Intentional drug overdose (13) Lumbar degenerative disc disease (14) Mood disorder (15) Mood disorder (16) Panic disorder (17) Pulmonary embolism (18) Suicidal ideation (19) Suicidal ideation (20) Suicide attempt Surgical Problems: (1) H/O esophagogastroduodenoscopy (2) H/o lumbar fusion (3) History of appendectomy (4) History of cholecystectomy (5) Hx of appendectomy (6) Insertion of implantable venous access port Family History Depression FATHER FH: alcohol abuse FATHER FH: cancer FH: heart disease FH: manic depression AUNT Social History Smoking Status: Never Smoker Alcohol Use: occasionally Drug Use: none, other Marital Status: Housing Status: lives with family Occupation Status: unemployed Current/Historical Medications Scheduled Empagliflozin (Jardiance), 25 MG PO DAILY Pantoprazole (Pantoprazole Sodium), 40 MG PO DAILY Paroxetine (Paroxetine HCl), 20 MG PO DAILY Allergies Coded Allergies: NO KNOWN DRUG ALLERGIES (Verified Allergy, Unknown, NONE, 03/01/18) Physical Exam Vital Signs Date Time Temp Pulse Resp B/P (MAP) Pulse Ox O2 Delivery O2 Flow Rate FiO2 03/01/18 22:00 128 109/73 94 Room Air 03/01/18 21:30 123 12 106/63 93 Room Air 03/01/18 21:11 121 03/01/18 21:10 121 18 137/78 95 Room Air 03/01/18 19:28 125 16 115/73 96 Nasal Cannula 2.0 03/01/18 18:56 Room Air 03/01/18 18:32 36.7 131 24 121/85 93 Room Air Physical Exam GENERAL: Sitting up in bed, disheveled, uncomfortable appearing. EYE EXAM: normal conjunctiva. OROPHARYNX: no exudate, no erythema, lips, buccal mucosa, and tongue normal and mucous membranes are moist NECK: supple, no nuchal rigidity, no adenopathy, non-tender LUNGS: Clear to auscultation. Normal chest wall mechanics HEART: no murmurs, S1 normal and S2 normal ABDOMEN: abdomen soft, acute tenderness in the epigastric and bilateral upper abdominal pain. normo-active bowel sounds, no masses, no rebound or guarding. BACK: Back is symmetrical on inspection and there is no deformity, no midline tenderness, no CVA tenderness. SKIN: no rashes and no bruising UPPER EXTREMITIES: upper extremities are grossly normal. LOWER EXTREMITIES: No pitting edema. Calves are equal bilaterally. NEURO EXAM: Normal sensorium, cranial nerves II-XII grossly intact, normal speech, no gross weakness of arms, no gross weakness of legs. Medical Decision & Procedures ER Provider Diagnostic Interpretation: Radiology results as stated below per my review and the radiologist's interpretation: CHEST ONE VIEW PORTABLE CLINICAL HISTORY: Atypical chest pain and shortness of breath COMPARISON STUDY: 11/28/2017 FINDINGS: The cardiac and mediastinal contours are normal. There is no evidence of focal pulmonary consolidation. There is no evidence of failure. No pleural effusions are visualized.[ IMPRESSION: No active disease in the chest. Electronically signed by: Cheng Diaz M.D. 03/01/2018 7:08 PM Dictated Date/Time: 03/01/2018 7:[address] ABD/PELVIS IV CONTRAST ONLY CLINICAL HISTORY: Generalized abdominal pain COMPARISON STUDY: The 2017 TECHNIQUE: Following the IV administration of 114 mL of Optiray-320, CT scan of the abdomen and pelvis was performed from the lung bases to the proximal femurs. Images are reviewed in the axial, sagittal, and coronal planes. IV contrast was administered without complication. A dose lowering technique was utilized adhering to the principles of ALARA. CT DOSE: 635.95 mGy.cm FINDINGS: Lower chest: The heart is normal in size and configuration, without pericardial effusion. The lung bases and pleural spaces are clear. Liver: There is mild hepatic steatosis. No focal masses are visualized. Gallbladder: Surgically absent Spleen: Borderline enlarged measuring 12.5 cm Pancreas: Unremarkable. Adrenal glands: Unremarkable. Kidneys: There is symmetric renal cortical enhancement. The kidneys are normal in size without hydronephrosis. Bowel: There are no transition zones indicate bowel obstruction. There is no evidence of acute diverticulitis. By history the appendix is surgically absent. Peritoneum: There is no intraperitoneal free air or abdominal ascites. Vasculature: The abdominal aorta is normal in course and caliber. Adenopathy: None. Pelvic viscera: There is minimal bladder distention. Skeletal structures: Postsurgical changes are present within the lumbar spine. IMPRESSION: 1. No evidence of bowel obstruction. No evidence of free air 2. No evidence of acute diverticulitis 3. Minimal bladder distention 4. Borderline splenomegaly Electronically signed by: Cheng Diaz M.D. 03/01/2018 9:16 PM Dictated Date/Time: 03/01/2018 9:12 PM Laboratory Results 03/01/18 18:50 Red Blood Count 4.90, Mean Corpuscular Volume 89.4, Mean Corpuscular Hemoglobin 33.5, Mean Corpuscular Hemoglobin Concent 37.4, Mean Platelet Volume 9.5, Neutrophils (%) (Auto) 41.9, Lymphocytes (%) (Auto) 49.6, Monocytes (%) (Auto) 6.9, Eosinophils (%) (Auto) 0.9, Basophils (%) (Auto) 0.4, Neutrophils # (Auto) 3.16, Lymphocytes # (Auto) 3.74, Monocytes # (Auto) 0.52, Eosinophils # (Auto) 0.07, Basophils # (Auto) 0.03 03/01/18 18:50 Test 03/01/18 18:50 03/01/18 19:48 03/01/18 21:19 03/01/18 22:23 White Blood Count 7.54 K/uL (4.8-10.8) Red Blood Count 4.90 M/uL (4.7-6.1) Hemoglobin 16.4 g/dL (14.0-18.0) Hematocrit 43.8 % (42-52) Mean Corpuscular Volume 89.4 fL (80-100) Mean Corpuscular Hemoglobin 33.5 pg (25-34) Mean Corpuscular Hemoglobin Concent 37.4 g/dl (32-36) Platelet Count 114 K/uL (130-400) Mean Platelet Volume 9.5 fL (7.4-10.4) Neutrophils (%) (Auto) 41.9 % Lymphocytes (%) (Auto) 49.6 % Monocytes (%) (Auto) 6.9 % Eosinophils (%) (Auto) 0.9 % Basophils (%) (Auto) 0.4 % Neutrophils # (Auto) 3.16 K/uL (1.4-6.5) Lymphocytes # (Auto) 3.74 K/uL (1.2-3.4) Monocytes # (Auto) 0.52 K/uL (0.11-0.59) Eosinophils # (Auto) 0.07 K/uL (0-0.5) Basophils # (Auto) 0.03 K/uL (0-0.2) RDW Standard Deviation 40.0 fL (36.4-46.3) RDW Coefficient of Variation 12.6 % (11.5-14.5) Immature Granulocyte % (Auto) 0.3 % Immature Granulocyte # (Auto) 0.02 K/uL (0.00-0.02) D-Dimer 660 ug/L FEU (0-500) Anion Gap 14.0 mmol/L (3-11) Est Creatinine Clear Calc Drug Dose 102.3 ml/min Estimated GFR () 94.1 Estimated GFR (Non- 81.2 BUN/Creatinine Ratio 7.2 (10-20) Calcium Level 9.2 mg/dl (8.5-10.1) Total Bilirubin 0.6 mg/dl (0.2-1) Direct Bilirubin 0.2 mg/dl (0-0.2) Aspartate Amino Transf (AST/SGOT) 19 U/L (15-37) Alanine Aminotransferase (ALT/SGPT) 27 U/L (12-78) Alkaline Phosphatase 109 U/L (45-117) Troponin I < 0.015 ng/ml (0-0.045) Total Protein 8.5 gm/dl (6.4-8.2) Albumin 3.5 gm/dl (3.4-5.0) Lipase 85 U/L (73-393) Beta-Hydroxybutyric Acid 3.62 mg/dL (0.2-2.81) Urine Color YELLOW Urine Appearance CLEAR (CLEAR) Urine pH 5.0 (4.5-7.5) Urine Specific [place] 1.022 (1.000-1.030) Urine Protein NEG (NEG) Urine Glucose (UA) 3+ (NEG) Urine Ketones TRACE (NEG) Urine Occult Blood NEG (NEG) Urine Nitrite NEG (NEG) Urine Bilirubin NEG (NEG) Urine Urobilinogen NEG (NEG) Urine Leukocyte Esterase NEG (NEG) Urine WBC (Auto) 0 /hpf (0-5) Urine RBC (Auto) 0-4 /hpf (0-4) Urine Hyaline Casts (Auto) 1-5 /lpf (0-5) Urine Epithelial Cells (Auto) 0-5 /lpf (0-5) Urine Bacteria (Auto) NEG (NEG) Bedside Glucose 136 mg/dl (70-99) Ethyl Alcohol mg/dL 116.0 mg/dl (0-3) Laboratory results per my review. Medications Administered Medications (Trade) Dose Ordered Sig/Carmita Route Start Time Stop Time Status Last Admin Dose Admin Sodium Chloride 2,000 ml @ 999 mls/hr Q2H1M STAT IV 03/01/18 18:47 03/01/18 20:47 DC 03/01/18 19:18 999 MLS/HR Ondansetron HCl (Zofran Inj) 4 mg NOW STAT IV 03/01/18 18:47 03/01/18 18:48 DC 03/01/18 19:15 4 MG Morphine Sulfate (MoRPHine SULFATE INJ) 6 mg NOW STAT IV 03/01/18 18:47 03/01/18 18:49 DC 03/01/18 19:15 6 MG Insulin Human Regular (novoLIN-R U-100 PER UNIT) 6 units NOW STAT SC 03/01/18 20:02 03/01/18 20:04 DC 03/01/18 20:02 6 UNITS Hydromorphone HCl (Dilaudid Inj) 1 mg NOW STAT IV 03/01/18 20:45 03/01/18 20:47 DC 03/01/18 21:09 1 MG Thiamine HCl (Vitamin B-1 Inj) 100 mg NOW STAT IV 03/01/18 20:45 03/01/18 20:47 DC 03/01/18 21:09 100 MG ECG Per My Interpretation Indication: chest pain Rate (beats per minute): 133 Rhythm: sinus tachycardia Findings: other (normal axis, No PVCs) ED Course ED COURSE: Vital signs were reviewed and showed tachycardic The patients medical record was reviewed The above diagnostic studies were performed and reviewed. ED treatments and interventions as stated above. 9: The patient was evaluated in room A12A. A complete history and physical examination was performed. 1846: Ordered Morphine Sulfate 6 mg IV, Zofran Injection 4 mg IV, Sodium Chloride 2000 ml @ 999 mls/hr IV. 2001: Ordered Insulin Human Regular 6 units SC. 2025: Upon reevaluation, the patient is feeling better. I discussed my findings with the patient and he understands and agrees with the treatment plan. Based on the patients age, coexisting illnesses, exam and lab findings the decision to treat as an inpatient was made. The patient remained stable while under my care. The patient will be evaluated for further management. 2044: Ordered Multivitamins 1 tab PO, Folic Acid 1 mg/Syringe 10 ml @ 5 mls/min IV, Thiamine HCl 100 mg IV, Dilaudid Injection 1 mg IV. 2136: I discussed the patients case with Dr. Sousa, [facility] Hospitalist. He understands the patients condition and agrees to accept the patient. The patient will be evaluated for further management and care. Medical Decision Differential diagnoses includes but is not limited to gastritis, peptic ulcer disease, GERD, gallbladder disease, pancreatitis, small bowel obstruction, acute coronary syndrome, pericarditis, ischemic bowel, irritable bowel disease, irritable bowel syndrome, appendicitis, diverticulitis, malignancy, hernia, urinary tract infection, torsion, perforation, trauma, infectious. Patient is a 42-year-old male who presents the ER for severe epigastric pain radiating bacterial to his back. Patient has a history of pancreatitis secondary to drinking. He drinks 6 pack a day. Patient does admit to nausea vomiting. He is also diabetic. BSG was initially elevated at 386. Did have a small gap and CO2 was slightly low at 20. Trace ketones in the UA. Troponin was negative along with bilirubin LFTs. Patient was given multiple doses of narcotics. CT abdomen pelvis was negative. Alcohol is still elevated 116. EKG shows sinus tach. Patient was given IV folic acid, thiamine and multivitamin. CT abdomen pelvis as stated above was unremarkable and I discussed case with internal medicine. Patient was admitted for further workup. Troponin was negative along with an unremarkable EKG nothing to suggest a ACS. Discussed with Pt concerning signs and symptoms to watch out for. Pt was instructed to follow up with their PCP and discussed with the patient their option to return to the ED at anytime for persistent or worsening symptoms. The appropriate anticipatory guidance and out-patient management, including indications for return to the emergency department, were explained at length to the patient and understood. Medication Reconcilliation Current Medication List: was personally reviewed by me Blood Pressure Screening Patient's blood pressure: Normal blood pressure Consults Time Called: 2136 Consulting Physician[facility] Returned Call: 2136 I discussed the patients case with Natividad Mott. He understands the patients condition and agrees to accept the patient. The patient will be evaluated for further management and care. Impression Primary Impression: Pancreatitis Additional Impressions: Hyperglycemia Abdominal pain Scribe Attestation The scribe's documentation has been prepared under my direction and personally reviewed by me in its entirety. I confirm that the note above accurately reflects all work, treatment, procedures, and medical decision making performed by me. Departure Information Dispostion Being Evaluated By Hospitalist Prescriptions Empagliflozin (Jardiance) 25 Mg Tab 25 MG PO DAILY, #30 Prov: Jed Sousa MD 03/01/18 Referrals Dhiraj Myers D.O. (PCP) Patient Instructions My [facility] Problem Qualifiers Primary Impression: Pancreatitis Chronicity: acute Pancreatitis type: alcohol induced Acute pancreatitis complication: unspecified Qualified Codes: K85.20 - Alcohol induced acute pancreatitis without necrosis or infection Additional Impressions: Abdominal pain Abdominal location: unspecified location Qualified Codes: R10.9 - Unspecified abdominal pain
[2018-03-02] MEDS: SODIUM CHLORIDE 0.9% 1000ML 1,000 ML IV SCH ×4 (00:33→21:04)
[2018-03-02] MEDS: HYDROmorphone INJ 0.5 MG/0.5 ML SYR IV PRN ×7 (00:33→21:20)
[2018-03-02] MEDS ORDERED: GABAPENTIN 600MG Q6H DOSE PO SCH (06:00)
[2018-03-02] MEDS ORDERED: INSULIN ASPART 100 UNITS/ML 3 ML PEN SC SCH ×2 (06:30→12:00)
[2018-03-02 07:00] LABS: HEMOGLOBIN 14.9 g/dL (14.0-18.0); MEAN CELL VOLUME 91.5 fL (80-100); MEAN CORPUSCULAR HEMOGLOBIN 31.7 pg (25-34); MEAN CORPUSCULAR HGB CONC 34.7 g/dl (32-36); RED CELL DISTRIBUTION WIDTH CV 12.7 % (11.5-14.5); RED CELL DISTRIBUTION WIDTH SD 42.4 fL (36.4-46.3); WHITE BLOOD COUNT 4.06 K/uL (4.8-10.8)
--- NOTE | 2018-03-02 07:18 | DIAGNOSTIC IMAGING REPORT ---
(CHEST FOR PE) ANGIO WITH CT DOSE: 536.23 mGy.cm HISTORY: 42 years-old Male with . Acute chest pain with elevated D dimer level TECHNIQUE: Multiple CTA images of the chest were obtained after the intravenous administration of 115 ml Optiray 320. Coronal and sagittal MIPS were obtained from the axial data set and were submitted for review. A dose lowering technique was utilized adhering to the principles of ALARA. COMPARISON: Chest radiograph 03/01/2018, CT abdomen and pelvis 03/01/2018, CTA chest 01/12/2016 FINDINGS: CTA: Heart is normal in size without pericardial effusion. Coronary arterial calcifications are noted. The thoracic aorta is normal in both course and caliber without aneurysm or dissection. The imaged great vessels appear to be patent. The pulmonary arterial tree is opacified to the level of the segmental branches and demonstrates no focal filling defects to suggest pulmonary thromboembolic disease. CT CHEST: No dominant thyroid nodule identified. There are no pathologically enlarged lymph nodes of the chest identified. There is no pneumothorax or pleural effusion. No focal airspace consolidation to suggest pneumonia. There are no suspicious pulmonary nodules or masses identified. Central airways are patent. Prior cholecystectomy. Varices noted within the left upper quadrant of the abdomen. Mild symmetric bilateral gynecomastia. Bones appear intact. IMPRESSION: 1. No acute intrathoracic abnormality identified, specifically no acute aortic pathology or evidence of pulmonary thromboembolic disease. 2. No focal airspace consolidation to suggest pneumonia. 3. Prior cholecystectomy. 4. Mild coronary arterial calcifications are noted. The above report was generated using voice recognition software. It may contain grammatical, syntax or spelling errors. Electronically signed by: Rick Álvarez M.D. 03/02/2018 7:17 AM Dictated Date/Time: 03/02/2018 7:09 AM
[2018-03-02 07:33] LABS: MEAN PLATELET VOLUME 8.9 fL (7.4-10.4); PLATELET COUNT 86 K/uL (130-400)
[2018-03-02 07:34] LABS: BASO % 0.5 %; BASO ABS # 0.02 K/uL (0-0.2); EOS % 2.5 %; IG# 0.01 K/uL (0.00-0.02); LYMPH % 41.9 %; MONO % 12.8 %; MONO ABS # 0.52 K/uL (0.11-0.59); NEUT % 42.1 %; NEUT ABS # 1.71 K/uL (1.4-6.5)
[2018-03-02 07:38] LABS: BLOOD UREA NITROGEN 8 mg/dl (7-18); CALCIUM 8.3 mg/dl (8.5-10.1); CARBON DIOXIDE 29 mmol/L (21-32); CREATININE 0.74 mg/dl (0.60-1.40); GLUCOSE 182 mg/dl (70-99); POTASSIUM 3.8 mmol/L (3.5-5.1); SODIUM 136 mmol/L (136-145)
[2018-03-02] MEDS: PAROXETINE 20 MG TAB PO SCH (07:56)
[2018-03-02] MEDS: THIAMINE HCL 100 MG TAB PO SCH (07:57)
[2018-03-02] MEDS: CEROVITE ADV FORMULA TAB PO SCH (07:57)
[2018-03-02] MEDS ORDERED: NURSING VERBAL MED ORDER ONE ×2 (08:15→10:45)
[2018-03-02] MEDS ORDERED: PANTOprazole INJ 40 MG in SYRINGE 0 ML IV SCH (09:00)
[2018-03-02] MEDS ORDERED: PANTOprazole SOD 40 MG TAB PO SCH (09:00)
[2018-03-02] MEDS ORDERED: LORAZEPAM 0.5 MG TAB PO PRN (09:45)
[2018-03-02] MEDS ORDERED: CHLORDIAZEPOXIDE 25 MG CAP PO SCH (09:45)
--- NOTE | 2018-03-02 09:52 | Progress Note ---
Medicine Progress Note Date & Time of Visit: Mar 02, 2018 at 09:39. Subjective Seen resting in bed, comfortable Alert, oriented 3, calm States he was not able to sleep last night because of persistent abdominal pain- epigastric, upper quadrants radiating to the back Pain is about 3 out of 10 after he receives pain medications a Nausea resolving denies hematemesis, melena, hematochezia Denies chest pain, shortness of breath No tremors, anxiety, hallucinations, headaches No other symptoms Objective Last 8 Hrs Date Time Temp Pulse Resp B/P (MAP) Pulse Ox O2 Delivery O2 Flow Rate FiO2 03/02/18 07:45 96 Room Air 03/02/18 07:11 36.6 85 16 124/80 (95) 95 Room Air 03/02/18 04:25 36.7 92 16 123/74 (90) 96 Room Air 03/02/18 01:56 36.8 119 16 115/80 93 Room Air Physical Exam: General- Oriented 3, not in distress, speaking in sentences Eyes- PERRL, EOMI, anicteric ENT- oropharynx clear Neck- supple, no JVD, no adenopathy, no thyromegaly Lungs- clear breath sounds bilaterally no rales wheezes normal rate Heart- regular rhythm; no murmur, normal rate Abdomen- normal bowel sounds, nondistended, soft, Mild tenderness in the upper quadrants Extremities- no pretibial edema, no calf tenderness; peripheral pulses intact Neuro- alert, oriented x 3; no gross focal deficits Skin- warm & dry No tremors no tremors Laboratory Results: Last 24 Hours Test 03/01/18 18:50 03/01/18 19:48 03/01/18 21:19 03/01/18 22:23 White Blood Count 7.54 K/uL Red Blood Count 4.90 M/uL Hemoglobin 16.4 g/dL Hematocrit 43.8 % Mean Corpuscular Volume 89.4 fL Mean Corpuscular Hemoglobin 33.5 pg Mean Corpuscular Hemoglobin Concent 37.4 g/dl Platelet Count 114 K/uL Mean Platelet Volume 9.5 fL Neutrophils (%) (Auto) 41.9 % Lymphocytes (%) (Auto) 49.6 % Monocytes (%) (Auto) 6.9 % Eosinophils (%) (Auto) 0.9 % Basophils (%) (Auto) 0.4 % Neutrophils # (Auto) 3.16 K/uL Lymphocytes # (Auto) 3.74 K/uL Monocytes # (Auto) 0.52 K/uL Eosinophils # (Auto) 0.07 K/uL Basophils # (Auto) 0.03 K/uL RDW Standard Deviation 40.0 fL RDW Coefficient of Variation 12.6 % Immature Granulocyte % (Auto) 0.3 % Immature Granulocyte # (Auto) 0.02 K/uL D-Dimer 660 ug/L FEU Sodium Level 131 mmol/L Potassium Level 3.9 mmol/L Chloride Level 97 mmol/L Carbon Dioxide Level 20 mmol/L Anion Gap 14.0 mmol/L Blood Urea Nitrogen 8 mg/dl Creatinine 1.10 mg/dl Est Creatinine Clear Calc Drug Dose 102.3 ml/min Estimated GFR () 94.1 Estimated GFR (Non- 81.2 BUN/Creatinine Ratio 7.2 Random Glucose 386 mg/dl Calcium Level 9.2 mg/dl Total Bilirubin 0.6 mg/dl Direct Bilirubin 0.2 mg/dl Aspartate Amino Transf (AST/SGOT) 19 U/L Alanine Aminotransferase (ALT/SGPT) 27 U/L Alkaline Phosphatase 109 U/L Troponin I < 0.015 ng/ml Total Protein 8.5 gm/dl Albumin 3.5 gm/dl Lipase 85 U/L Beta-Hydroxybutyric Acid 3.62 mg/dL Urine Color YELLOW Urine Appearance CLEAR Urine pH 5.0 Urine Specific [place] 1.022 Urine Protein NEG Urine Glucose (UA) 3+ Urine Ketones TRACE Urine Occult Blood NEG Urine Nitrite NEG Urine Bilirubin NEG Urine Urobilinogen NEG Urine Leukocyte Esterase NEG Urine WBC (Auto) 0 /hpf Urine RBC (Auto) 0-4 /hpf Urine Hyaline Casts (Auto) 1-5 /lpf Urine Epithelial Cells (Auto) 0-5 /lpf Urine Bacteria (Auto) NEG Bedside Glucose 136 mg/dl Ethyl Alcohol mg/dL 116.0 mg/dl Test 03/02/18 06:16 03/02/18 07:58 03/02/18 09:35 White Blood Count 4.06 K/uL Red Blood Count 4.70 M/uL Hemoglobin 14.9 g/dL Hematocrit 43.0 % Mean Corpuscular Volume 91.5 fL Mean Corpuscular Hemoglobin 31.7 pg Mean Corpuscular Hemoglobin Concent 34.7 g/dl Platelet Count 86 K/uL Mean Platelet Volume 8.9 fL Neutrophils (%) (Auto) 42.1 % Lymphocytes (%) (Auto) 41.9 % Monocytes (%) (Auto) 12.8 % Eosinophils (%) (Auto) 2.5 % Basophils (%) (Auto) 0.5 % Neutrophils # (Auto) 1.71 K/uL Lymphocytes # (Auto) 1.70 K/uL Monocytes # (Auto) 0.52 K/uL Eosinophils # (Auto) 0.10 K/uL Basophils # (Auto) 0.02 K/uL RDW Standard Deviation 42.4 fL RDW Coefficient of Variation 12.7 % Immature Granulocyte % (Auto) 0.2 % Immature Granulocyte # (Auto) 0.01 K/uL Sodium Level 136 mmol/L Potassium Level 3.8 mmol/L Chloride Level 103 mmol/L Carbon Dioxide Level 29 mmol/L Anion Gap 4.0 mmol/L Blood Urea Nitrogen 8 mg/dl Creatinine 0.74 mg/dl Est Creatinine Clear Calc Drug Dose 151.8 ml/min Estimated GFR () 130.0 Estimated GFR (Non- 112.2 BUN/Creatinine Ratio 10.7 Random Glucose 182 mg/dl Calcium Level 8.3 mg/dl Magnesium Level 1.9 mg/dl Creatine Kinase MB 1.0 ng/ml Creatine Kinase MB Ratio Troponin I < 0.015 ng/ml Bedside Glucose 191 mg/dl Assessment & Plan Drinks ASSESSMENT AND PLAN: This 42-year-old male presents with severe abdominal pain radiating to chest. 1. Persistent upper quadrant abdominal pain History of gastritis and pancreatitis -Initial lipase negative, CT abdomen pelvis no acute process -Still having persistent abdominal pain this morning Repeat lipase level We will consult GI for possible need of repeat EGD Protonix IV daily N.p.o. and IV fluids As needed Dilaudid 1 mg 2. Chest pain Resolved Troponins negative D-dimer 660, CT chest no PE check Doppler ultrasound of the legs 3. Alcoholism. drinks 4-5 beers a day no signs of overt withdrawal at this time Patient declines gabapentin taper previous history of having restless leg syndromes with gabapentin will order Librium protocol PRN Ativan 4. Mood disorder. Continue paroxetine. 5. Diabetes. The patient was in mild DKA when he came in but he was given insulin and sugars are 136 right now. Anion gap closed, no acidosis Continue insulin Lantus and sliding scale Check A1c We will need to glucometer at discharge 6. Thrombocytopenia. Platelets 114 down to 86 Likely secondary to alcoholism Monitor 7. DVT prophylaxis scds Avoid anticoagulation due to thrombocytopenia DISPOSITION: Management of medical conditions as noted above in progress Anticipate discharged home medically stable she would like to see RORY about her oxygen Current Inpatient Medications: Current Inpatient Medications Medications (Trade) Dose Ordered Sig/Carmita Route Start Time Stop Time Status Last Admin Dose Admin Ioversol (Optiray 320) 125 ml UD PRN IV 03/01/18 19:00 03/05/18 18:59 Sodium Chloride 1,000 ml @ 150 mls/hr Q6H40M IV 03/01/18 23:59 03/31/18 23:58 03/02/18 07:58 150 MLS/HR Acetaminophen (Tylenol Tab) 650 mg Q4H PRN PO 03/01/18 22:30 03/31/18 22:29 03/01/18 22:39 650 MG Al Hydrox/Mg Hydrox/Simethicone (Maalox Max Susp) 15 ml Q4H PRN PO 03/01/18 22:30 03/31/18 22:29 Ondansetron HCl (Zofran Inj) 4 mg Q6H PRN IV 03/01/18 22:30 03/31/18 22:29 Nitroglycerin (Nitrostat Tab) 0.4 mg UD PRN SL 03/01/18 22:30 03/31/18 22:29 Polyethylene (Miralax Powder Packet) 17 gm DAILY PRN PO 03/01/18 22:30 03/31/18 22:29 Paroxetine HCl (pAXil TAB) 20 mg DAILY PO 03/02/18 09:00 04/01/18 08:59 03/02/18 07:56 20 MG Hydromorphone HCl (Dilaudid Inj) 1 mg Q3HWA PRN IV 03/01/18 22:30 03/15/18 22:29 03/02/18 07:55 1 MG Thiamine HCl (Vitamin B-1 Tab) 100 mg Q24H PO 03/02/18 08:00 04/01/18 07:59 03/02/18 07:57 100 MG Lorazepam (Ativan Tab) PRN Dosing -Active Protocol UD PRN PO 03/01/18 22:30 03/31/18 22:29 Folic Acid (Folvite Tab) 1 mg QAM PO 03/02/18 09:00 04/01/18 08:59 03/02/18 07:57 1 MG Multivitamins/ Minerals (Multivitamin W/ Minerals Tab) 1 tab QAM PO 03/02/18 09:00 04/01/18 08:59 03/02/18 07:57 1 TAB Insulin Glargine (Lantus Solostar Pen) 10 units HS SC 03/02/18 21:00 04/01/18 20:59 Miscellaneous (Iv Fluids Completed) 1 ea PRN PRN N/A 03/01/18 23:00 03/01/19 22:59 Ioversol (Optiray 320) 125 ml UD PRN IV 03/01/18 23:30 03/05/18 23:29 Insulin Aspart (novoLOG ASPART) SLIDING SCALE G... Q6 SC 03/02/18 12:00 04/01/18 11:59 Pantoprazole Sodium 40 mg/ Syringe 10 ml @ 5 mls/min DAILY@0900 IV 03/02/18 09:00 04/01/18 08:59 Chlordiazepoxide (Librium Cap) 50 mg SEE PROTOCOL TEXT PO 03/02/18 09:45 04/01/18 09:44 UNV Lorazepam (Ativan Tab) 0.5 mg Q4H PRN PO 03/02/18 09:45 04/01/18 09:44 UNV
[2018-03-02] MEDS: CHLORDIAZEPOXIDE 50MG 1ST DOSE PO SCH ×3 (10:16→21:19)
[2018-03-02] MEDS ORDERED: DICYCLOMINE HCL 20 MG TAB PO PRN (10:30)
--- NOTE | 2018-03-02 11:25 | DIAGNOSTIC IMAGING REPORT ---
VENOUS DOPPLER LWR EXT BILA HISTORY: Pain edema COMPARISON STUDY: None. FINDINGS: There is normal compressibility, flow, and augmentation within the bilateral lower extremity deep venous systems. IMPRESSION: No DVT within the right or left lower extremity. The above report was generated using voice recognition software. It may contain grammatical, syntax or spelling errors. Electronically signed by: Radu Fischer M.D. 03/02/2018 11:24 AM Dictated Date/Time: 03/02/2018 11:24 AM
[2018-03-02] MEDS: SUCRALFATE 1 GM/10 ML UDC PO SCH ×3 (11:46→21:20)
--- NOTE | 2018-03-02 12:32 | Gastrointestinal Consultation ---
Gastrointestinal Consultation Date of Consultation: Mar 02, 2018 Attending Physician: Antony Lind Consulting Physician: Faizan Garsia Reason for Consultation: Abd pain History of Present Illness Patient is a 42 year old male w PMhx of ETOH abuse, mood disorder, heart disease , GERD, chronic pancreatitis, hx of PE hx of chronic pain, narcotic abuse who presented to ED yesterday w abd and chest pain. Reports abd pain on epigastric area which can radiate up his chest to his jaw. He denies any crushing like sensation on chest or SOB, nor worsening of pain with activities. No bowel habit changes. He does have hx of GERD, taking Protonix 40mg daily at home. Reports have been avoiding ETOH for weeks, then prior to coming had 4 beers. ETOH level 116. He chews tobacco, denies any illicit drugs. Labs including CBC, LFTs, Lipase all normal. His Na was a bit low, corrected now 131-> 136, blood sugar 300s. CT abd/pelvis w contrast showed s/p cholecystectomy, appendectomy but otherwise normal exam including normal pancreas. He did have elevated Ddimer at 660. CTA chest ruled out PE. Prior EGDs in 2009, 2014, 2017 w evidence of gastritis and fundic gland gastric polyps. EUS in 2010 w findings of chronic pancreatitis. Past Medical/Surgical History Medical Problems: (1) Acute pancreatitis Status: Acute (2) Alcohol abuse Status: Acute (3) Alcohol overdose Status: Acute (4) Alcohol withdrawal Status: Acute (5) Combative behavior Status: Acute (6) Contusion of right hand Status: Acute (7) Facial trauma Status: Acute (8) History of DVT (deep vein thrombosis) Status: Acute (9) Hyperglycemia Status: Acute (10) Hyperglycemia Status: Acute (11) Hyperglycemia due to type 2 diabetes mellitus Status: Acute (12) Intractable epigastric abdominal pain Status: Acute (13) Intractable vomiting Status: Acute (14) Leg pain, right Status: Acute (15) Midsternal chest pain Status: Acute (16) Pancreatitis Status: Acute (17) Shortness of breath Status: Acute Past Medical History: See HPI above Past Surgical History: See HPI, back surgery, [place] Family History Depression FATHER FH: alcohol abuse FATHER FH: cancer FH: heart disease FH: manic depression AUNT Social History Smoking Status: Never Smoker Alcohol Use: occasionally Drug Use: none, other Marital Status: Housing Status: lives with family Occupation Status: unemployed Allergies Coded Allergies: NO KNOWN DRUG ALLERGIES (Verified Allergy, Unknown, NONE, 03/01/18) Current Medications Home Meds and Scripts Medications Dose Route/Sig Max Daily Dose Days Date Category Jardiance (Empagliflozin) 25 Mg Tab 25 Mg PO DAILY 03/01/18 Rx Paroxetine HCl (Paroxetine) 20 Mg Tab 20 Mg PO DAILY 11/28/17 Reported Pantoprazole Sodium (Pantoprazole) 40 Mg Tab 40 Mg PO DAILY 11/28/17 Reported Review of Systems Constitutional: No fever, No chills Respiratory: No cough, No shortness of breath Cardiac: No chest pain Abdomen: + pain, + nausea, No vomiting, No diarrhea, No constipation, No GI bleeding Skin: No rash, No itch, No jaundice Physical Exam Date Time Temp Pulse Resp B/P (MAP) Pulse Ox O2 Delivery O2 Flow Rate FiO2 03/02/18 07:45 96 Room Air 03/02/18 07:11 36.6 85 16 124/80 (95) 95 Room Air 03/02/18 04:25 36.7 92 16 123/74 (90) 96 Room Air 03/02/18 01:56 36.8 119 16 115/80 93 Room Air 03/01/18 23:15 112 18 97/70 94 03/01/18 23:01 112 18 97/70 94 03/01/18 22:30 119 20 111/71 94 03/01/18 22:00 128 109/73 94 Room Air 03/01/18 21:30 123 12 106/63 93 Room Air 03/01/18 21:11 121 03/01/18 21:10 121 18 137/78 95 Room Air 03/01/18 19:28 125 16 115/73 96 Nasal Cannula 2.0 03/01/18 18:56 Room Air 03/01/18 18:32 36.7 131 24 121/85 93 Room Air General Appearance: WD/WN, no apparent distress Eyes: normal inspection, PERRL, EOMI Neck: supple, no JVD, trachea midline Respiratory/Chest: normal breath sounds, no respiratory distress, no accessory muscle use Cardiovascular: regular rate, rhythm, no gallop, no murmur Abdomen: normal bowel sounds, soft, + tenderness (epigastric ) Extremities: normal inspection, no pedal edema, no calf tenderness Neurologic/Psych: alert, normal mood/affect, oriented x 3 Skin: normal color, no jaundice, no rash Laboratory Results Last 24 Hours Test 03/01/18 18:50 03/01/18 19:48 03/01/18 21:19 03/01/18 22:23 White Blood Count 7.54 K/uL Red Blood Count 4.90 M/uL Hemoglobin 16.4 g/dL Hematocrit 43.8 % Mean Corpuscular Volume 89.4 fL Mean Corpuscular Hemoglobin 33.5 pg Mean Corpuscular Hemoglobin Concent 37.4 g/dl Platelet Count 114 K/uL Mean Platelet Volume 9.5 fL Neutrophils (%) (Auto) 41.9 % Lymphocytes (%) (Auto) 49.6 % Monocytes (%) (Auto) 6.9 % Eosinophils (%) (Auto) 0.9 % Basophils (%) (Auto) 0.4 % Neutrophils # (Auto) 3.16 K/uL Lymphocytes # (Auto) 3.74 K/uL Monocytes # (Auto) 0.52 K/uL Eosinophils # (Auto) 0.07 K/uL Basophils # (Auto) 0.03 K/uL RDW Standard Deviation 40.0 fL RDW Coefficient of Variation 12.6 % Immature Granulocyte % (Auto) 0.3 % Immature Granulocyte # (Auto) 0.02 K/uL D-Dimer 660 ug/L FEU Sodium Level 131 mmol/L Potassium Level 3.9 mmol/L Chloride Level 97 mmol/L Carbon Dioxide Level 20 mmol/L Anion Gap 14.0 mmol/L Blood Urea Nitrogen 8 mg/dl Creatinine 1.10 mg/dl Est Creatinine Clear Calc Drug Dose 102.3 ml/min Estimated GFR () 94.1 Estimated GFR (Non- 81.2 BUN/Creatinine Ratio 7.2 Random Glucose 386 mg/dl Calcium Level 9.2 mg/dl Total Bilirubin 0.6 mg/dl Direct Bilirubin 0.2 mg/dl Aspartate Amino Transf (AST/SGOT) 19 U/L Alanine Aminotransferase (ALT/SGPT) 27 U/L Alkaline Phosphatase 109 U/L Troponin I < 0.015 ng/ml Total Protein 8.5 gm/dl Albumin 3.5 gm/dl Lipase 85 U/L Beta-Hydroxybutyric Acid 3.62 mg/dL Urine Color YELLOW Urine Appearance CLEAR Urine pH 5.0 Urine Specific [place] 1.022 Urine Protein NEG Urine Glucose (UA) 3+ Urine Ketones TRACE Urine Occult Blood NEG Urine Nitrite NEG Urine Bilirubin NEG Urine Urobilinogen NEG Urine Leukocyte Esterase NEG Urine WBC (Auto) 0 /hpf Urine RBC (Auto) 0-4 /hpf Urine Hyaline Casts (Auto) 1-5 /lpf Urine Epithelial Cells (Auto) 0-5 /lpf Urine Bacteria (Auto) NEG Bedside Glucose 136 mg/dl Ethyl Alcohol mg/dL 116.0 mg/dl Test 03/02/18 06:16 03/02/18 07:58 03/02/18 11:30 White Blood Count 4.06 K/uL Red Blood Count 4.70 M/uL Hemoglobin 14.9 g/dL Hematocrit 43.0 % Mean Corpuscular Volume 91.5 fL Mean Corpuscular Hemoglobin 31.7 pg Mean Corpuscular Hemoglobin Concent 34.7 g/dl Platelet Count 86 K/uL Mean Platelet Volume 8.9 fL Neutrophils (%) (Auto) 42.1 % Lymphocytes (%) (Auto) 41.9 % Monocytes (%) (Auto) 12.8 % Eosinophils (%) (Auto) 2.5 % Basophils (%) (Auto) 0.5 % Neutrophils # (Auto) 1.71 K/uL Lymphocytes # (Auto) 1.70 K/uL Monocytes # (Auto) 0.52 K/uL Eosinophils # (Auto) 0.10 K/uL Basophils # (Auto) 0.02 K/uL RDW Standard Deviation 42.4 fL RDW Coefficient of Variation 12.7 % Immature Granulocyte % (Auto) 0.2 % Immature Granulocyte # (Auto) 0.01 K/uL Sodium Level 136 mmol/L Potassium Level 3.8 mmol/L Chloride Level 103 mmol/L Carbon Dioxide Level 29 mmol/L Anion Gap 4.0 mmol/L Blood Urea Nitrogen 8 mg/dl Creatinine 0.74 mg/dl Est Creatinine Clear Calc Drug Dose 151.8 ml/min Estimated GFR () 130.0 Estimated GFR (Non- 112.2 BUN/Creatinine Ratio 10.7 Random Glucose 182 mg/dl Calcium Level 8.3 mg/dl Magnesium Level 1.9 mg/dl Creatine Kinase MB 1.0 ng/ml Creatine Kinase MB Ratio Troponin I < 0.015 ng/ml Lipase 63 U/L Bedside Glucose 191 mg/dl 172 mg/dl Impression Patient is a 42 year old male w upper abd pain, nausea. Hx of GERD, gastritis, chronic pancreatitis likely from ETOH use. His LFTs, Lipase all normal. CT abd/ pelvis w contrast showed s/p cholecystectomy and appendectomy but otherwise normal w/o acute changes. ETOH level 116, glucose 300s on admission. Plan - Increase Protonix 40mg BID - Carafate 1g QID - Dicyclomine 20mg TID prn abd pain; would avoid narcotics given abuse hx and no obvious indication - Defer repeat endoscopic evaluation; last EGD 01/2017 + gastritis and gastric fundic polyp. - Advised to avoid ETOH and tobacco products; also NSAIDs, ASA ATTESTATION: I have performed a history and physical examination of this patient and reviewed the electronic record. Specifically on physical examination there is mild epigastric tenderness. I have discussed my findings with SHAWN Markham. The above note reflects my findings, conclusions and recommendations. Faizan Garsia MD
[2018-03-02] MEDS: INSULIN ASPART 100 UNITS/ML 3 ML PEN SC SCH ×3 (13:17→21:26)
[2018-03-02] MEDS: ACETAMINOPHEN 325 MG TAB PO PRN (19:55)
[2018-03-02] MEDS ORDERED: GABAPENTIN 600MG Q8H DOSE PO SCH (20:00)
[2018-03-02] MEDS: PANTOprazole INJ 40 MG in SYRINGE 0 ML IV SCH (21:20)
[2018-03-02] MEDS: INSULIN GLARGINE SOLOSTAR 100 UNITS/ML 3 ML PEN SC SCH (21:27)
[2018-03-03] VITALS (7 sets, daily range): BP systolic 114–131; BP diastolic 74–83; PULSE 86–100; TEMP 36.8–37.1; O2SAT 93–97
[2018-03-03] MEDS: HYDROmorphone INJ 0.5 MG/0.5 ML SYR IV PRN ×8 (00:29→22:04)
[2018-03-03] MEDS: SODIUM CHLORIDE 0.9% 1000ML 1,000 ML IV SCH ×4 (03:00→23:04)
[2018-03-03 05:50] LABS: HEMATOCRIT 43.3 % (42-52); HEMOGLOBIN 14.9 g/dL (14.0-18.0); MEAN CELL VOLUME 91.2 fL (80-100); MEAN CORPUSCULAR HEMOGLOBIN 31.4 pg (25-34); MEAN CORPUSCULAR HGB CONC 34.4 g/dl (32-36); RED CELL DISTRIBUTION WIDTH CV 12.6 % (11.5-14.5); RED CELL DISTRIBUTION WIDTH SD 42.1 fL (36.4-46.3)
[2018-03-03 06:10] LABS: CALCIUM 8.2 mg/dl (8.5-10.1); CREATININE 0.83 mg/dl (0.60-1.40); POTASSIUM 3.5 mmol/L (3.5-5.1)
[2018-03-03] MEDS: ONDANSETRON INJ 2 MG/ML 2 ML VIAL IV PRN (06:10)
[2018-03-03] MEDS: SUCRALFATE 1 GM/10 ML UDC PO SCH ×4 (06:10→21:06)
[2018-03-03] MEDS: CHLORDIAZEPOXIDE 50MG 1ST DOSE PO SCH (06:10)
[2018-03-03] MEDS: INSULIN ASPART 100 UNITS/ML 3 ML PEN SC SCH ×4 (06:30→21:11)
[2018-03-03 06:32] LABS: MEAN PLATELET VOLUME 8.4 fL (7.4-10.4); PLATELET COUNT 80 K/uL (130-400)
[2018-03-03] MEDS: THIAMINE HCL 100 MG TAB PO SCH (07:12)
[2018-03-03] MEDS: CEROVITE ADV FORMULA TAB PO SCH (07:13)
[2018-03-03] MEDS: PAROXETINE 20 MG TAB PO SCH (07:14)
[2018-03-03] MEDS: PANTOprazole INJ 40 MG in SYRINGE 0 ML IV SCH ×2 (09:18→21:06)
[2018-03-03] MEDS: CHLORDIAZEPOXIDE 50MG Q8H DOSE PO SCH ×2 (13:09→22:03)
--- NOTE | 2018-03-03 20:34 | Progress Note ---
Medicine Progress Note Date & Time of Visit: Mar 03, 2018 at 20:28. Subjective Seen resting in bed, mother at the bedside States abdominal pain is about the same moderate to severe Relieved with as needed Dilaudid Patient had an episode of bilious vomiting this morning Not able to eat much Denies tremors, anxiety, hallucinations No other symptoms Objective Last 8 Hrs Date Time Temp Pulse Resp B/P (MAP) Pulse Ox O2 Delivery O2 Flow Rate FiO2 03/03/18 19:30 37.1 91 18 125/77 (93) 97 Room Air 03/03/18 16:00 95 Room Air 03/03/18 15:49 36.8 90 16 120/76 (91) 95 Physical Exam: General- Oriented 3, not in distress, speaking in sentences Eyes- anicteric Neck- supple, no JVD Lungs- clear breath sounds bilaterally Heart- regular rhythm; no murmur, normal rate Abdomen- normal bowel sounds, nondistended, soft, Mild tenderness in the upper quadrants Extremities- no pretibial edema, no calf tenderness Neuro- alert, oriented x 3; no gross focal deficits Skin- warm & dry No tremors no tremors Laboratory Results: Last 24 Hours Test 03/03/18 05:37 03/03/18 07:18 03/03/18 11:23 03/03/18 16:44 White Blood Count 4.00 K/uL Red Blood Count 4.75 M/uL Hemoglobin 14.9 g/dL Hematocrit 43.3 % Mean Corpuscular Volume 91.2 fL Mean Corpuscular Hemoglobin 31.4 pg Mean Corpuscular Hemoglobin Concent 34.4 g/dl Platelet Count 80 K/uL Mean Platelet Volume 8.4 fL RDW Standard Deviation 42.1 fL RDW Coefficient of Variation 12.6 % Neutrophils % (Manual) 48.2 % Lymphocytes % (Manual) 24.6 % Variant Lymphocytes % (manual) 15.8 % Monocytes % (Manual) 9.6 % Eosinophils % (Manual) 1.8 % Neutrophils # (Manual) 1.93 K/uL Total Absolute Neutrophils 1.93 K/uL Lymphocytes # (Manual) 0.98 K/uL Absolute Variant Lymphocytes 0.63 K/uL Total Absolute Lymphocytes 1.62 K/uL Monocytes # (Manual) 0.38 K/uL Eosinophils # (Manual) 0.07 K/uL Sodium Level 137 mmol/L Potassium Level 3.5 mmol/L Chloride Level 104 mmol/L Carbon Dioxide Level 28 mmol/L Anion Gap 5.0 mmol/L Blood Urea Nitrogen 4 mg/dl Creatinine 0.83 mg/dl Est Creatinine Clear Calc Drug Dose 135.3 ml/min Estimated GFR () 124.0 Estimated GFR (Non- 107.0 BUN/Creatinine Ratio 4.8 Random Glucose 150 mg/dl Calcium Level 8.2 mg/dl Magnesium Level 2.1 mg/dl Bedside Glucose 147 mg/dl 160 mg/dl 107 mg/dl Assessment & Plan ASSESSMENT AND PLAN: This 42-year-old male presents with severe abdominal pain radiating to chest. 1. Persistent upper quadrant abdominal pain History of gastritis and pancreatitis -Initial lipase negative, CT abdomen pelvis no acute process GI consulted, EGD not recommended at this time -Still reporting abdominal pain today Continue Protonix IV twice daily, sucralfate Check lipase level Monitor closely As needed Dilaudid 1 mg 2. Chest pain Resolved Troponins negative D-dimer 660, CT chest no PE check Doppler ultrasound of the legs 3. Alcoholism. drinks 4-5 beers a day no signs of overt withdrawal today Continue Librium protocol PRN Ativan 4. Mood disorder. Continue paroxetine. 5. Diabetes. The patient was in mild DKA when he came in but he was given insulin and sugars are 136 right now. Anion gap closed, no acidosis Continue insulin Lantus and sliding scale Check A1c We will need to glucometer at discharge 6. Thrombocytopenia. Platelets 114 down to 86 Likely secondary to alcoholism Monitor 7. DVT prophylaxis scds Avoid anticoagulation due to thrombocytopenia DISPOSITION: Management of medical conditions as noted above in progress Anticipate discharged home medically stable Current Inpatient Medications: Current Inpatient Medications Medications (Trade) Dose Ordered Sig/Carmita Route Start Time Stop Time Status Last Admin Dose Admin Ioversol (Optiray 320) 125 ml UD PRN IV 03/01/18 19:00 03/05/18 18:59 Sodium Chloride 1,000 ml @ 150 mls/hr Q6H40M IV 03/01/18 23:59 03/31/18 23:58 03/03/18 16:18 150 MLS/HR Acetaminophen (Tylenol Tab) 650 mg Q4H PRN PO 03/01/18 22:30 03/31/18 22:29 03/02/18 19:55 650 MG Al Hydrox/Mg Hydrox/Simethicone (Maalox Max Susp) 15 ml Q4H PRN PO 03/01/18 22:30 03/31/18 22:29 Ondansetron HCl (Zofran Inj) 4 mg Q6H PRN IV 03/01/18 22:30 03/31/18 22:29 03/03/18 06:10 4 MG Nitroglycerin (Nitrostat Tab) 0.4 mg UD PRN SL 03/01/18 22:30 03/31/18 22:29 Polyethylene (Miralax Powder Packet) 17 gm DAILY PRN PO 03/01/18 22:30 03/31/18 22:29 Paroxetine HCl (pAXil TAB) 20 mg DAILY PO 03/02/18 09:00 04/01/18 08:59 03/03/18 07:14 20 MG Hydromorphone HCl (Dilaudid Inj) 1 mg Q3HWA PRN IV 03/01/18 22:30 03/15/18 22:29 03/03/18 19:06 1 MG Thiamine HCl (Vitamin B-1 Tab) 100 mg Q24H PO 03/02/18 08:00 04/01/18 07:59 03/03/18 07:12 100 MG Lorazepam (Ativan Tab) PRN Dosing -Active Protocol UD PRN PO 03/01/18 22:30 03/31/18 22:29 Folic Acid (Folvite Tab) 1 mg QAM PO 03/02/18 09:00 04/01/18 08:59 03/03/18 07:14 1 MG Multivitamins/ Minerals (Multivitamin W/ Minerals Tab) 1 tab QAM PO 03/02/18 09:00 04/01/18 08:59 03/03/18 07:13 1 TAB Insulin Glargine (Lantus Solostar Pen) 10 units HS SC 03/02/18 21:00 04/01/18 20:59 03/02/18 21:27 10 UNITS Miscellaneous (Iv Fluids Completed) 1 ea PRN PRN N/A 03/01/18 23:00 03/01/19 22:59 Ioversol (Optiray 320) 125 ml UD PRN IV 03/01/18 23:30 03/05/18 23:29 Lorazepam (Ativan Tab) 0.5 mg Q4H PRN PO 03/02/18 09:45 04/01/18 09:44 Chlordiazepoxide (Librium Cap) 50 mg Q8H PO 03/03/18 14:00 03/04/18 06:01 03/03/18 13:09 50 MG Chlordiazepoxide (Librium Cap) 25 mg Q8H PO 03/04/18 14:00 03/05/18 06:01 Chlordiazepoxide (Librium Cap) 10 mg Q12H PO 03/05/18 18:00 03/06/18 06:01 Pantoprazole Sodium 40 mg/ Syringe 10 ml @ 5 mls/min BID IV 03/02/18 21:00 04/01/18 08:59 03/03/18 09:18 5 MLS/MIN Sucralfate (Carafate Susp) 1 gm ACHS PO 03/02/18 11:00 04/01/18 10:59 03/03/18 16:18 1 GM Dicyclomine HCl (Bentyl Tab) 20 mg TID PRN PO 03/02/18 10:30 04/01/18 10:29 Insulin Aspart (novoLOG ASPART) SLIDING SCALE G... ACHS SC 03/02/18 11:00 04/01/18 10:59 03/03/18 17:55 2 UNITS
[2018-03-03] MEDS: INSULIN GLARGINE SOLOSTAR 100 UNITS/ML 3 ML PEN SC SCH (21:11)
[2018-03-04] VITALS (7 sets, daily range): BP systolic 116–130; BP diastolic 72–88; PULSE 77–98; TEMP 36.6–36.9; O2SAT 96–97
[2018-03-04] MEDS ORDERED: GABAPENTIN 600MG Q12H DOSE PO SCH
[2018-03-04] MEDS: HYDROmorphone INJ 0.5 MG/0.5 ML SYR IV PRN ×7 (01:03→21:45)
[2018-03-04] MEDS: SUCRALFATE 1 GM/10 ML UDC PO SCH ×4 (06:07→20:42)
[2018-03-04] MEDS: CHLORDIAZEPOXIDE 50MG Q8H DOSE PO SCH (06:07)
[2018-03-04 07:20] LABS: HEMATOCRIT 39.5 % (42-52); HEMOGLOBIN 13.7 g/dL (14.0-18.0); MEAN CELL VOLUME 91.4 fL (80-100); MEAN CORPUSCULAR HEMOGLOBIN 31.7 pg (25-34); MEAN CORPUSCULAR HGB CONC 34.7 g/dl (32-36); RED CELL DISTRIBUTION WIDTH CV 12.6 % (11.5-14.5); RED CELL DISTRIBUTION WIDTH SD 42.6 fL (36.4-46.3); WHITE BLOOD COUNT 4.77 K/uL (4.8-10.8)
[2018-03-04 07:25] LABS: CALCIUM 8.4 mg/dl (8.5-10.1); CREATININE 0.78 mg/dl (0.60-1.40); POTASSIUM 3.5 mmol/L (3.5-5.1)
[2018-03-04 07:26] LABS: MEAN PLATELET VOLUME 9.2 fL (7.4-10.4); PLATELET COUNT 88 K/uL (130-400)
[2018-03-04 08:14] LABS: BASO % 0.8 %; BASO ABS # 0.04 K/uL (0-0.2); EOS % 4.6 %; EOS ABS # 0.22 K/uL (0-0.5); LYMPH % 59.7 %; LYMPH ABS # 2.85 K/uL (1.2-3.4); MONO ABS # 0.43 K/uL (0.11-0.59); NEUT % 25.9 %; NEUT ABS # 1.23 K/uL (1.4-6.5)
[2018-03-04] MEDS: THIAMINE HCL 100 MG TAB PO SCH (08:57)
[2018-03-04] MEDS: PANTOprazole INJ 40 MG in SYRINGE 0 ML IV SCH ×2 (08:58→20:42)
[2018-03-04] MEDS: PAROXETINE 20 MG TAB PO SCH (08:59)
[2018-03-04] MEDS: CEROVITE ADV FORMULA TAB PO SCH (08:59)
[2018-03-04] MEDS: SODIUM CHLORIDE 0.9% 1000ML 1,000 ML IV SCH ×2 (09:15→19:35)
[2018-03-04] MEDS: INSULIN ASPART 100 UNITS/ML 3 ML PEN SC SCH ×4 (09:17→20:51)
--- NOTE | 2018-03-04 09:47 | Progress Note ---
Medicine Progress Note Date & Time of Visit: Mar 04, 2018 at 09:43. Subjective Seen resting in bed, reading the newspaper, not in distress States that his epigastric and upper quadrant pain still about the same, maybe a little worse than yesterday Had 3 episodes of vomiting today, bilious did not have breakfast due to the nausea and vomiting No active nausea when I examined him Feels tired after coming from the bathroom denies tremors, hallucinations, reports some night sweats Denies other symptoms Objective Last 8 Hrs Date Time Temp Pulse Resp B/P (MAP) Pulse Ox O2 Delivery O2 Flow Rate FiO2 03/04/18 07:15 36.7 84 18 124/81 (95) 96 Room Air 03/04/18 04:31 36.7 98 18 120/72 (88) 97 Room Air Physical Exam: General- Oriented 3, not in distress, speaking in sentences Eyes- anicteric Neck- no JVD Lungs- clear breath sounds bilaterally, no crackles no wheezing Heart- regular rhythm; no murmur, normal rate Abdomen- normal bowel sounds, nondistended, soft, Mild to moderate tenderness in the upper quadrants Extremities- no pretibial edema, no calf tenderness Neuro- alert, oriented x 3; no gross focal deficits Skin- warm & dry No tremors Laboratory Results: Last 24 Hours Test 03/03/18 11:23 03/03/18 16:44 03/03/18 20:11 03/03/18 20:40 Bedside Glucose 160 mg/dl 107 mg/dl 173 mg/dl Lipase 25 U/L Test 03/04/18 06:50 03/04/18 07:31 White Blood Count 4.77 K/uL Red Blood Count 4.32 M/uL Hemoglobin 13.7 g/dL Hematocrit 39.5 % Mean Corpuscular Volume 91.4 fL Mean Corpuscular Hemoglobin 31.7 pg Mean Corpuscular Hemoglobin Concent 34.7 g/dl Platelet Count 88 K/uL Mean Platelet Volume 9.2 fL Neutrophils (%) (Auto) 25.9 % Lymphocytes (%) (Auto) 59.7 % Monocytes (%) (Auto) 9.0 % Eosinophils (%) (Auto) 4.6 % Basophils (%) (Auto) 0.8 % Neutrophils # (Auto) 1.23 K/uL Lymphocytes # (Auto) 2.85 K/uL Monocytes # (Auto) 0.43 K/uL Eosinophils # (Auto) 0.22 K/uL Basophils # (Auto) 0.04 K/uL RDW Standard Deviation 42.6 fL RDW Coefficient of Variation 12.6 % Immature Granulocyte % (Auto) 0.0 % Immature Granulocyte # (Auto) 0.00 K/uL Sodium Level 140 mmol/L Potassium Level 3.5 mmol/L Chloride Level 105 mmol/L Carbon Dioxide Level 29 mmol/L Anion Gap 6.0 mmol/L Blood Urea Nitrogen 3 mg/dl Creatinine 0.78 mg/dl Est Creatinine Clear Calc Drug Dose 145.5 ml/min Estimated GFR () 127.2 Estimated GFR (Non- 109.8 BUN/Creatinine Ratio 3.2 Random Glucose 208 mg/dl Calcium Level 8.4 mg/dl Magnesium Level 2.0 mg/dl Bedside Glucose 187 mg/dl Assessment & Plan ASSESSMENT AND PLAN: This 42-year-old male presents with severe abdominal pain radiating to chest. 1. Persistent upper quadrant abdominal pain History of gastritis and pancreatitis -Initial lipase negative, CT abdomen pelvis no acute process Patient is persistent abdominal pain nausea vomiting Discussed with GI, evaluation Continue Protonix IV twice daily, sucralfate Monitor closely As needed Dilaudid 1 mg 2. Chest pain Resolved Troponins negative D-dimer 660, CT chest no PE Doppler ultrasound of the legs negative 3. Alcoholism. drinks 4-5 beers a day no signs of overt withdrawal Continue Librium protocol PRN Ativan 4. Mood disorder. Continue paroxetine. 5. Diabetes. The patient was in mild DKA when he came in but he was given insulin and sugars are 136. Anion gap closed, no acidosis Continue insulin Lantus and sliding scale Check A1c will need to glucometer at discharge 6. Thrombocytopenia. Platelets 114 down to 80s Likely secondary to alcoholism No signs of bleeding Monitor 7. DVT prophylaxis scds, ambulation encouraged Avoid anticoagulation due to thrombocytopenia DISPOSITION: Management of medical conditions as noted above in progress Anticipate discharged home medically stable Current Inpatient Medications: Current Inpatient Medications Medications (Trade) Dose Ordered Sig/Carmita Route Start Time Stop Time Status Last Admin Dose Admin Ioversol (Optiray 320) 125 ml UD PRN IV 03/01/18 19:00 03/05/18 18:59 Sodium Chloride 1,000 ml @ 100 mls/hr Q10H IV 03/01/18 23:59 03/31/18 23:58 03/04/18 09:15 100 MLS/HR Acetaminophen (Tylenol Tab) 650 mg Q4H PRN PO 03/01/18 22:30 03/31/18 22:29 03/02/18 19:55 650 MG Al Hydrox/Mg Hydrox/Simethicone (Maalox Max Susp) 15 ml Q4H PRN PO 03/01/18 22:30 03/31/18 22:29 Ondansetron HCl (Zofran Inj) 4 mg Q6H PRN IV 03/01/18 22:30 03/31/18 22:29 03/03/18 06:10 4 MG Nitroglycerin (Nitrostat Tab) 0.4 mg UD PRN SL 03/01/18 22:30 03/31/18 22:29 Polyethylene (Miralax Powder Packet) 17 gm DAILY PRN PO 03/01/18 22:30 03/31/18 22:29 Paroxetine HCl (pAXil TAB) 20 mg DAILY PO 03/02/18 09:00 04/01/18 08:59 03/04/18 08:59 20 MG Hydromorphone HCl (Dilaudid Inj) 1 mg Q3HWA PRN IV 03/01/18 22:30 03/15/18 22:29 03/04/18 08:58 1 MG Thiamine HCl (Vitamin B-1 Tab) 100 mg Q24H PO 03/02/18 08:00 04/01/18 07:59 03/04/18 08:57 100 MG Lorazepam (Ativan Tab) PRN Dosing -Active Protocol UD PRN PO 03/01/18 22:30 03/31/18 22:29 Folic Acid (Folvite Tab) 1 mg QAM PO 03/02/18 09:00 04/01/18 08:59 03/04/18 08:58 1 MG Multivitamins/ Minerals (Multivitamin W/ Minerals Tab) 1 tab QAM PO 03/02/18 09:00 04/01/18 08:59 03/04/18 08:59 1 TAB Insulin Glargine (Lantus Solostar Pen) 10 units HS SC 03/02/18 21:00 04/01/18 20:59 03/03/18 21:11 10 UNITS Miscellaneous (Iv Fluids Completed) 1 ea PRN PRN N/A 03/01/18 23:00 03/01/19 22:59 Ioversol (Optiray 320) 125 ml UD PRN IV 03/01/18 23:30 03/05/18 23:29 Lorazepam (Ativan Tab) 0.5 mg Q4H PRN PO 03/02/18 09:45 04/01/18 09:44 Chlordiazepoxide (Librium Cap) 25 mg Q8H PO 03/04/18 14:00 03/05/18 06:01 Chlordiazepoxide (Librium Cap) 10 mg Q12H PO 03/05/18 18:00 03/06/18 06:01 Pantoprazole Sodium 40 mg/ Syringe 10 ml @ 5 mls/min BID IV 03/02/18 21:00 04/01/18 08:59 03/04/18 08:58 5 MLS/MIN Sucralfate (Carafate Susp) 1 gm ACHS PO 03/02/18 11:00 04/01/18 10:59 03/04/18 06:07 1 GM Dicyclomine HCl (Bentyl Tab) 20 mg TID PRN PO 03/02/18 10:30 04/01/18 10:29 Insulin Aspart (novoLOG ASPART) SLIDING SCALE G... ACHS SC 03/02/18 11:00 04/01/18 10:59 03/04/18 09:17 2 UNITS
[2018-03-04] MEDS: CHLORDIAZEPOXIDE 25MG Q8H DOSE PO SCH ×2 (13:53→21:43)
--- NOTE | 2018-03-04 18:06 | GASTROENTEROLOGY PROGRESS NOTE ---
DATE: 03/04/2018 RACE: . I was contacted this morning by Dr. Lind in regard to Raffi Zeng. He stated that Mr. Zeng's epigastric abdominal pain had worsened throughout the evening and asked for him to be evaluated. At the time that I saw Mr. Zeng he was resting in his bed comfortably. He did complain of bilateral upper quadrant abdominal pain, which he described as 6/10 in intensity, nonradiating, though he described it as a chronic ache worsened with eating. He did state that it was alleviated by Dilaudid therapy. He has previously had a GI workup through [facility] with his most recent EGD being approximately 1 year ago in January 2017. At that time, he did have biopsies performed of the small bowel, which were normal, the stomach which showed mild chronic gastritis, and he did have a fundic gland polyp though no other findings. He does drink alcohol and has had chronic pancreatitis in the past though his LFTs and lipase have all been normal. A CT scan of his abdomen and pelvis during this admission showed no evidence of bowel obstruction, acute diverticulitis, or evidence of free air. There was borderline splenomegaly and minimal bladder distention. The patient does also complain of intermittent nausea without vomiting. He denies any further complaints including fevers, chills, chest pain, hematemesis, melena, or hematochezia. PHYSICAL EXAMINATION: Includes VITAL SIGNS: Temperature 36.9, pulse 78, respirations 16, blood pressure 116/74, pulse oximetry 96% on room air. GENERAL: He is awake, cooperative, in no acute distress. HEENT: Head: Normocephalic and atraumatic. Eyes: Pupils equal and round. Extraocular muscles are intact. ENT: External evaluation of ears and nose is normal. Oropharynx is clear. NECK: Soft and supple. CHEST: Clear to auscultation bilaterally. CARDIOVASCULAR SYSTEM: Regular rate and rhythm. ABDOMEN: Soft, tender in the mid epigastric and bilateral upper quadrants, nondistended. There are positive bowel sounds. There is no hepatosplenomegaly appreciable on this exam. EXTREMITIES: No clubbing, cyanosis, or edema. REVIEW OF SYSTEMS: Negative x10 systems review other than pertinent positives listed in the HPI. LABORATORY DATA: His laboratory studies include an H and H of 13.7 and 39.5, white blood cell count 4.77 and a platelet count of 88. His liver panel on admission was normal. Lipase checked yesterday was 25. IMPRESSION: A 42-year-old male with a history of chronic alcohol use, with continued bilateral upper quadrant abdominal pain and a history of gastritis. PLAN: At the present time, I would recommend that the patient be kept n.p.o. after midnight. I would defer to the [facility] GI team as to whether they want to proceed with an upper endoscopy tomorrow though I think it is reasonable in light of the patient's abdominal pain and continued symptoms, and the fact that he is requiring hospitalization, for his pain. I will recommend that he be continued on his current GI regimen, which includes Protonix 40 mg IV b.i.d. and Carafate 1 g p.o. a.c. and at bedtime. Once again, thanks for allowing me to participate in the care of this patient. If you have any further questions, please do not hesitate in contacting me.
[2018-03-04] MEDS: INSULIN GLARGINE SOLOSTAR 100 UNITS/ML 3 ML PEN SC SCH (20:51)
[2018-03-05] VITALS (8 sets, daily range): BP systolic 113–136; BP diastolic 71–83; PULSE 70–83; TEMP 36.4–36.7; O2SAT 96–98
[2018-03-05] MEDS: HYDROmorphone INJ 0.5 MG/0.5 ML SYR IV PRN ×5 (02:14→16:12)
[2018-03-05] MEDS: ONDANSETRON INJ 2 MG/ML 2 ML VIAL IV PRN (02:56)
[2018-03-05] MEDS: SODIUM CHLORIDE 0.9% 1000ML 1,000 ML IV SCH ×2 (05:40→16:07)
[2018-03-05] MEDS: CHLORDIAZEPOXIDE 25MG Q8H DOSE PO SCH (05:44)
[2018-03-05] MEDS: SUCRALFATE 1 GM/10 ML UDC PO SCH ×4 (05:44→21:50)
[2018-03-05] MEDS: INSULIN ASPART 100 UNITS/ML 3 ML PEN SC SCH ×4 (06:30→22:00)
[2018-03-05] MEDS: PANTOprazole INJ 40 MG in SYRINGE 0 ML IV SCH (09:40)
[2018-03-05] MEDS ORDERED: PROPOFOL IV EMULSION 10 MG/ML 20 ML VIAL ONE ×2 (11:35→11:49)
[2018-03-05] MEDS ORDERED: LIDOCAINE HCL 2% 2 ML VIAL (20MG/ML) ONE (11:35)
--- NOTE | 2018-03-05 11:48 | Endo History and Physical ---
History & Physical Date of Service: Mar 05, 2018. Chief Complaint: Referring Physician: History of Present Illness pt with abdominal pain for EGD. Past Medical History Diabetes, Arthritis, Gastrointestinal Disorder, Anxiety, Reflux, Depression Past Surgical History Hx Cardiac Surgery: No Hx Abdominal Surgery: Yes (S/P EGD, APPENDECTOMY, CHOLECYSTECTOMY) Hx Post-Op Nausea and Vomiting: No Hx Cancer Surgery: No Hx Thoracic Surgery: No Hx Orthopedic: Yes (LUMBAR FUSION) Hx Urinary Tract Surgery: No Social History Smoking Status: Never Smoker Hx Substance Use: No Hx Alcohol Use: Yes (LAST DRINK YESTERDAY; 6 PACK/DAY) Allergies Coded Allergies: NO KNOWN DRUG ALLERGIES (Verified Allergy, Unknown, NONE, 03/01/18) Current Medications Reported Home Medications Medications Dose Route/Sig Max Daily Dose Days Date Category Jardiance (Empagliflozin) 25 Mg Tab 25 Mg PO DAILY 03/01/18 Rx Paroxetine HCl (Paroxetine) 20 Mg Tab 20 Mg PO DAILY 11/28/17 Reported Pantoprazole Sodium (Pantoprazole) 40 Mg Tab 40 Mg PO DAILY 11/28/17 Reported Vital Signs Weight (Kilograms): 95.400 Height (Feet): 6 Height (Inches): 0.00 Date Time Temp Pulse Resp B/P (MAP) Pulse Ox O2 Delivery O2 Flow Rate FiO2 03/05/18 11:40 36.6 79 20 130/85 (100) 97 Room Air 03/05/18 08:00 Room Air 03/05/18 06:55 36.4 71 20 114/76 (89) 96 Room Air 03/05/18 04:51 36.4 76 18 113/78 (90) 96 Room Air 03/05/18 00:00 97 Room Air 2.0 03/04/18 23:00 36.7 79 18 121/73 (89) 96 Room Air 03/04/18 19:27 97 Room Air 03/04/18 18:58 36.6 77 16 130/88 (102) 97 Room Air 03/04/18 15:25 36.7 77 16 117/72 (87) 97 Room Air 03/04/18 12:24 36.9 78 16 116/74 (88) 96 Room Air Physical Exam General Appearance: no apparent distress Respiratory/Chest: Auscultation: breath sounds normal Cardiovascular: Heart Auscultation: RRR Abdomen: Inspection & Palpation: soft Liver: non-tender Assessment and Plan stable for EGD
[2018-03-05] MEDS ORDERED: GABAPENTIN 600MG Q24H DOSE PO SCH (12:00)
--- NOTE | 2018-03-05 12:45 | GI REPORT ---
Patient Name: Raffi Zeng Procedure Date: 03/05/2018 12:00 PM Date of : 1975 Admit Type: Inpatient Age: 42 Gender: Male Attending MD: Colton Moreland MD Procedure: Upper GI endoscopy Providers: Colton Moreland MD Referring MD: Antony Lind Indications: Epigastric abdominal pain Medicines: See the Anesthesia note for documentation of the administered medications Complications: No immediate complications. Estimated Blood Loss: Estimated blood loss: none. Procedure: Pre-Anesthesia Assessment: - Prior to the procedure, a History and Physical was performed, and patient medications, allergies and sensitivities were reviewed. The patient's tolerance of previous anesthesia was reviewed. - The risks and benefits of the procedure and the sedation options and risks were discussed with the patient. All questions were answered and informed consent was obtained. - Patient identification and proposed procedure were verified prior to the procedure by the physician and the nurse. The procedure was verified in the pre-procedure area. - Pre-procedure physical examination revealed no contraindications to sedation. - After reviewing the risks and benefits, the patient was deemed in satisfactory condition to undergo the procedure. After obtaining informed consent, the endoscope was passed under direct vision. Throughout the procedure, the patient's blood pressure, pulse, and oxygen saturations were monitored continuously. The scope was introduced through the mouth, and advanced to the third part of duodenum. The upper GI endoscopy was accomplished without difficulty. The patient tolerated the procedure well. Findings: The esophagus was normal. The stomach was normal. The examined duodenum was normal. The cardia and gastric fundus were normal on retroflexion. Impression: - Normal esophagus. - Normal stomach. - Normal examined duodenum. - No specimens collected. Recommendation: - [facility]. Colton Moreland M.D. Colton Moreland MD 03/05/2018 12:44:50 PM This report has been signed electronically. Note Initiated On: 03/05/2018 12:00 PM Number of Addenda: 0 I attest to the content of the Intraoperative Record and orders documented therein, exceptions below {[id number]}
[2018-03-05] MEDS: CEROVITE ADV FORMULA TAB PO SCH (13:05)
[2018-03-05] MEDS: THIAMINE HCL 100 MG TAB PO SCH (13:05)
[2018-03-05] MEDS: PAROXETINE 20 MG TAB PO SCH (13:05)
--- NOTE | 2018-03-05 14:58 | Anesthesiology Progress Note ---
Anesthesia Post Op Note Date & Time Mar 05, 2018 at 14:57 Vital Signs Pain Intensity: 7.0 Vital Signs Past 12 Hours Date Time Temp Pulse Resp B/P (MAP) Pulse Ox O2 Delivery O2 Flow Rate FiO2 03/05/18 14:54 36.5 76 18 130/83 (99) 98 03/05/18 13:04 36.5 83 16 128/83 (98) 97 Room Air 03/05/18 12:42 75 18 110/81 (91) 97 Room Air 03/05/18 12:27 81 18 121/83 (96) 98 Room Air 03/05/18 12:12 91 18 120/87 (98) 97 Room Air 03/05/18 11:40 36.6 79 20 130/85 (100) 97 Room Air 03/05/18 08:00 Room Air 03/05/18 06:55 36.4 71 20 114/76 (89) 96 Room Air 03/05/18 04:51 36.4 76 18 113/78 (90) 96 Room Air Notes Mental Status: alert / awake / arousable, participated in evaluation Pt Amnestic to Procedure: Yes Nausea / Vomiting: adequately controlled Pain: adequately controlled Airway Patency, RR, SpO2: stable & adequate BP & HR: stable & adequate Hydration State: stable & adequate Anesthetic Complications: no major complications apparent
[2018-03-05] MEDS: CHLORDIAZEPOXIDE 10MG Q12H DOSE PO SCH (17:50)
[2018-03-05] MEDS ORDERED: TRAMADOL HCL 50 MG TAB PO PRN (18:30)
--- NOTE | 2018-03-05 18:39 | Progress Note ---
Medicine Progress Note Date & Time of Visit: Mar 05, 2018 at 18:32. Subjective Seen resting in bed, watching TV, comfortable Status post EGD this morning, essentially normal findings States abdominal pain is somewhat improved, patient also moving on all quadrants and to the back, worse with movement, patient describes as scrunching Nausea improving, had a bowel movement last night as per patient Denies chest pain, shortness of breath, or any other symptoms Objective Last 8 Hrs Date Time Temp Pulse Resp B/P (MAP) Pulse Ox O2 Delivery O2 Flow Rate FiO2 03/05/18 16:00 98 Room Air 03/05/18 14:54 36.5 76 18 130/83 (99) 98 03/05/18 13:04 36.5 83 16 128/83 (98) 97 Room Air 03/05/18 12:42 75 18 110/81 (91) 97 Room Air 03/05/18 12:27 81 18 121/83 (96) 98 Room Air 03/05/18 12:12 91 18 120/87 (98) 97 Room Air 03/05/18 11:40 36.6 79 20 130/85 (100) 97 Room Air Physical Exam: General- Oriented 3, not in distress, speaking in sentences Eyes- anicteric Neck- no JVD Lungs- clear BS bilaterally, no wheezing Heart- regular rhythm; no murmur, normal rate Abdomen- normal bowel sounds, nondistended, soft, mild tenderness in the upper quadrants Extremities- no pretibial edema, no calf tenderness Neuro- alert, oriented x 3; no gross focal deficits Skin- warm & dry No tremors Laboratory Results: Last 24 Hours Test 03/04/18 19:47 03/05/18 07:10 03/05/18 11:14 03/05/18 16:19 Bedside Glucose 150 mg/dl 138 mg/dl 136 mg/dl 132 mg/dl Assessment & Plan ASSESSMENT AND PLAN: This 42-year-old male presents with severe abdominal pain radiating to chest. 1. Persistent upper quadrant abdominal pain History of gastritis and pancreatitis -Initial lipase negative, CT abdomen pelvis no acute process -Status post EGD March 05, [address] Moreland: Essentially normal -Today pain may be related to abdominal wall pain and back pain possibly muscular etiology -Discussed with patient We will change Dilaudid to every 6 hours in order as needed tramadol Change Protonix to p.o , sucralfate 2. Chest pain Resolved Troponins negative D-dimer 660, CT chest no PE Doppler ultrasound of the legs negative 3. Alcoholism. drinks 4-5 beers a day no signs of overt withdrawal Continue Librium protocol PRN Ativan 4. Mood disorder. Continue paroxetine. 5. Diabetes. The patient was in mild DKA when he came in but he was given insulin and sugars are 136. Anion gap closed, no acidosis Continue insulin Lantus and sliding scale Check A1c will need to glucometer at discharge 6. Thrombocytopenia. Platelets 114 down to 80s Likely secondary to alcoholism No signs of bleeding Monitor 7. DVT prophylaxis scds, ambulation encouraged Avoid anticoagulation due to thrombocytopenia DISPOSITION: Management of medical conditions as noted above in progress Anticipate discharged home tomorrow when medically stable Current Inpatient Medications: Current Inpatient Medications Medications (Trade) Dose Ordered Sig/Carmita Route Start Time Stop Time Status Last Admin Dose Admin Ioversol (Optiray 320) 125 ml UD PRN IV 03/01/18 19:00 03/05/18 18:59 Sodium Chloride 1,000 ml @ 100 mls/hr Q10H IV 03/01/18 23:59 03/31/18 23:58 03/05/18 16:07 100 MLS/HR Acetaminophen (Tylenol Tab) 650 mg Q4H PRN PO 03/01/18 22:30 03/31/18 22:29 03/02/18 19:55 650 MG Al Hydrox/Mg Hydrox/Simethicone (Maalox Max Susp) 15 ml Q4H PRN PO 03/01/18 22:30 03/31/18 22:29 Ondansetron HCl (Zofran Inj) 4 mg Q6H PRN IV 03/01/18 22:30 03/31/18 22:29 03/05/18 02:56 4 MG Nitroglycerin (Nitrostat Tab) 0.4 mg UD PRN SL 03/01/18 22:30 03/31/18 22:29 Polyethylene (Miralax Powder Packet) 17 gm DAILY PRN PO 03/01/18 22:30 03/31/18 22:29 03/05/18 14:39 17 GM Paroxetine HCl (pAXil TAB) 20 mg DAILY PO 03/02/18 09:00 04/01/18 08:59 03/05/18 13:05 20 MG Thiamine HCl (Vitamin B-1 Tab) 100 mg Q24H PO 03/02/18 08:00 04/01/18 07:59 03/05/18 13:05 100 MG Lorazepam (Ativan Tab) PRN Dosing -Active Protocol UD PRN PO 03/01/18 22:30 03/31/18 22:29 Folic Acid (Folvite Tab) 1 mg QAM PO 03/02/18 09:00 04/01/18 08:59 03/05/18 13:05 1 MG Multivitamins/ Minerals (Multivitamin W/ Minerals Tab) 1 tab QAM PO 03/02/18 09:00 04/01/18 08:59 03/05/18 13:05 1 TAB Insulin Glargine (Lantus Solostar Pen) 10 units HS SC 03/02/18 21:00 04/01/18 20:59 03/04/18 20:51 10 UNITS Miscellaneous (Iv Fluids Completed) 1 ea PRN PRN N/A 03/01/18 23:00 03/01/19 22:59 Ioversol (Optiray 320) 125 ml UD PRN IV 03/01/18 23:30 03/05/18 23:29 Lorazepam (Ativan Tab) 0.5 mg Q4H PRN PO 03/02/18 09:45 04/01/18 09:44 Chlordiazepoxide (Librium Cap) 10 mg Q12H PO 03/05/18 18:00 03/06/18 06:01 03/05/18 17:50 10 MG Sucralfate (Carafate Susp) 1 gm ACHS PO 03/02/18 11:00 04/01/18 10:59 03/05/18 16:08 1 GM Dicyclomine HCl (Bentyl Tab) 20 mg TID PRN PO 03/02/18 10:30 04/01/18 10:29 Insulin Aspart (novoLOG ASPART) SLIDING SCALE G... ACHS SC 03/02/18 11:00 04/01/18 10:59 03/04/18 20:51 3 UNITS Pantoprazole Sodium (Protonix Tab) 40 mg BID PO 03/05/18 21:00 04/04/18 20:59 Hydromorphone HCl (Dilaudid Inj) 1 mg Q6H PRN IV 03/05/18 18:30 03/15/18 22:29 UNV Tramadol HCl (Ultram Tab) 50 mg Q6H PRN PO 03/05/18 18:30 04/04/18 18:29 UNV
[2018-03-05] MEDS ORDERED: HYDROmorphone INJ 1 MG/ML SYR IV ONE (19:15)
[2018-03-05] MEDS: PANTOprazole SOD 40 MG TAB PO SCH (21:50)
[2018-03-05] MEDS: INSULIN GLARGINE SOLOSTAR 100 UNITS/ML 3 ML PEN SC SCH (22:02)
[2018-03-06] MEDS: HYDROmorphone INJ 1 MG/ML SYR IV PRN ×2 (01:19→08:34)
[2018-03-06 04:00] VITALS: BP 114/74; PULSE 77; TEMP 36.4; O2SAT 95
[2018-03-06] MEDS: CHLORDIAZEPOXIDE 10MG Q12H DOSE PO SCH (05:32)
[2018-03-06] MEDS: SODIUM CHLORIDE 0.9% 1000ML 1,000 ML IV SCH (05:32)
[2018-03-06] MEDS: SUCRALFATE 1 GM/10 ML UDC PO SCH ×2 (05:33→08:27)
[2018-03-06 06:51] LABS: HEMATOCRIT 39.8 % (42-52); HEMOGLOBIN 14.2 g/dL (14.0-18.0); MEAN CELL VOLUME 89.6 fL (80-100); MEAN CORPUSCULAR HGB CONC 35.7 g/dl (32-36); MEAN PLATELET VOLUME 8.7 fL (7.4-10.4); PLATELET COUNT 110 K/uL (130-400); RED CELL DISTRIBUTION WIDTH CV 12.6 % (11.5-14.5); RED CELL DISTRIBUTION WIDTH SD 41.1 fL (36.4-46.3); WHITE BLOOD COUNT 5.26 K/uL (4.8-10.8)
[2018-03-06 07:05] LABS: HEMOGLOBIN A1C 8.7 % (4.5-5.6)
[2018-03-06 07:21] LABS: CALCIUM 8.7 mg/dl (8.5-10.1); CREATININE 0.67 mg/dl (0.60-1.40); POTASSIUM 3.2 mmol/L (3.5-5.1)
[2018-03-06 07:27] VITALS: BP 123/77; PULSE 74; TEMP 36.4; O2SAT 96
[2018-03-06 07:35] LABS: BASO % 0.6 %; BASO ABS # 0.03 K/uL (0-0.2); EOS % 4.2 %; EOS ABS # 0.22 K/uL (0-0.5); IG# 0.01 K/uL (0.00-0.02); LYMPH % 54.9 %; LYMPH ABS # 2.89 K/uL (1.2-3.4); MONO % 7.2 %; MONO ABS # 0.38 K/uL (0.11-0.59); NEUT % 32.9 %; NEUT ABS # 1.73 K/uL (1.4-6.5)
[2018-03-06 08:00] VITALS: O2SAT 96
[2018-03-06] MEDS: PAROXETINE 20 MG TAB PO SCH (08:26)
[2018-03-06] MEDS: PANTOprazole SOD 40 MG TAB PO SCH (08:27)
[2018-03-06] MEDS: CEROVITE ADV FORMULA TAB PO SCH (08:27)
[2018-03-06] MEDS: THIAMINE HCL 100 MG TAB PO SCH (08:27)
[2018-03-06] MEDS: INSULIN ASPART 100 UNITS/ML 3 ML PEN SC SCH ×2 (08:31→12:42)
[2018-03-06 10:09] VITALS: Ht 182.9 cm; Wt 96.5 kg
[2018-03-06 11:02] VITALS: BP 102/63; PULSE 76; TEMP 36.5; O2SAT 97
[2018-03-06 15:22] VITALS: BP 102/63; PULSE 76; TEMP 36.5; O2SAT 97
[2018-03-06] MEDS ORDERED: POTASSIUM CHLORIDE 20 MEQ TABCR PO ONE (15:30)
--- NOTE | 2018-03-06 16:00 | Progress Note ---
Medicine Progress Note Date & Time of Visit: Mar 06, 2018 at 15:38. Subjective seen resting in bed, watching TV, very comfortable states he feels fine overall pain is better denies any symptoms States he is ready for discharge today Objective Last 8 Hrs Date Time Temp Pulse Resp B/P (MAP) Pulse Ox O2 Delivery O2 Flow Rate FiO2 03/06/18 15:22 36.5 76 18 97 Room Air 03/06/18 11:02 36.5 76 18 102/63 (76) 97 03/06/18 08:00 96 Room Air Physical Exam: General- Oriented 3, not in distress, speaking in sentences Eyes- anicteric Neck- no JVD Lungs- clear breath sounds, no rales/wheezes bilaterally Heart- regular rhythm; no murmur, normal rate Abdomen- normal bowel sounds, nondistended, soft, NO tenderness Extremities- no pretibial edema, no calf tenderness Neuro- alert, oriented x 3; no gross focal deficits Skin- warm & dry No tremors Laboratory Results: Last 24 Hours Test 03/05/18 16:19 03/05/18 20:49 03/06/18 06:32 03/06/18 07:19 Bedside Glucose 132 mg/dl 150 mg/dl 186 mg/dl White Blood Count 5.26 K/uL Red Blood Count 4.44 M/uL Hemoglobin 14.2 g/dL Hematocrit 39.8 % Mean Corpuscular Volume 89.6 fL Mean Corpuscular Hemoglobin 32.0 pg Mean Corpuscular Hemoglobin Concent 35.7 g/dl Platelet Count 110 K/uL Mean Platelet Volume 8.7 fL Neutrophils (%) (Auto) 32.9 % Lymphocytes (%) (Auto) 54.9 % Monocytes (%) (Auto) 7.2 % Eosinophils (%) (Auto) 4.2 % Basophils (%) (Auto) 0.6 % Neutrophils # (Auto) 1.73 K/uL Lymphocytes # (Auto) 2.89 K/uL Monocytes # (Auto) 0.38 K/uL Eosinophils # (Auto) 0.22 K/uL Basophils # (Auto) 0.03 K/uL RDW Standard Deviation 41.1 fL RDW Coefficient of Variation 12.6 % Immature Granulocyte % (Auto) 0.2 % Immature Granulocyte # (Auto) 0.01 K/uL Sodium Level 138 mmol/L Potassium Level 3.2 mmol/L Chloride Level 105 mmol/L Carbon Dioxide Level 28 mmol/L Anion Gap 5.0 mmol/L Blood Urea Nitrogen 2 mg/dl Creatinine 0.67 mg/dl Est Creatinine Clear Calc Drug Dose 169.5 ml/min Estimated GFR () 135.4 Estimated GFR (Non- 116.9 BUN/Creatinine Ratio 3.0 Random Glucose 205 mg/dl Estimated Average Glucose 203 mg/dl Hemoglobin A1c 8.7 % Calcium Level 8.7 mg/dl Test 03/06/18 11:10 Bedside Glucose 147 mg/dl Assessment & Plan ASSESSMENT AND PLAN: This 42-year-old male presents with severe abdominal pain radiating to chest. 1. Persistent upper quadrant abdominal pain, Resolved, likely secondary to Alcohol Use History of gastritis and pancreatitis -Initial lipase negative, CT abdomen pelvis no acute process -Status post EGD March 05, [address] Moreland: Essentially normal -pain improved through admission pain may be related to abdominal wall pain from vomiting and back pain possibly muscular etiology -received IV Protonix, Sucralfate PO, PRN analgesics - discharge to home, advised to take Tylenol or Ibuprofen PRN for pain 2. Chest pain Resolved Troponins negative D-dimer 660, CT chest no PE Doppler ultrasound of the legs negative for DVT 3. Alcoholism drinks 4-5 beers a day placed on Alcohol Withdrawal Protocol- including Librium taper- completed no signs of overt withdrawal observed 4. Mood disorder. Continue paroxetine. 5. Diabetes. - The patient was in mild DKA when he came in but he was given insulin and sugars are 136. - Anion gap closed, no acidosis Continue insulin Lantus and sliding scale Check A1c 8.7 - advised patient that at this time, I recommend that he start on insulin as he already as he came in with DKA, he may not be producing enough insulin due to recurrent pancreatitis, and at any point, he can have another episode of DKA which could be life threatening this was discussed at length with patient, reiterated multiple times the recommendation for Insulin - patient still said no, im not using insulin repeatedly and when inquired, he just said I cannot do Insulin, and would not elaborate - he said he would like to speak with his primary care physician ff up with Dr. Myers arranged for , 03/08/18, emphasized to patient that he needs to follow up with his PCP on 6. Thrombocytopenia. Platelets 114 down to 80s--> improved to 110s Likely secondary to alcoholism No signs of bleeding repeat CBC, and Monitor as outpatient 7 Hypokalemia replace with PO potassium repeat as outpatient 7. DVT prophylaxis scds, ambulation encouraged Avoided anticoagulation due to thrombocytopenia DISPOSITION: discharge to home, advised to take Tylenol or Ibuprofen PRN for pain Current Inpatient Medications: Current Inpatient Medications Medications (Trade) Dose Ordered Sig/Carmita Route Start Time Stop Time Status Last Admin Dose Admin Sodium Chloride 1,000 ml @ 60 mls/hr [id number] IV 03/01/18 23:59 03/31/18 23:58 03/06/18 05:32 60 MLS/HR Acetaminophen (Tylenol Tab) 650 mg Q4H PRN PO 03/01/18 22:30 03/31/18 22:29 03/02/18 19:55 650 MG Al Hydrox/Mg Hydrox/Simethicone (Maalox Max Susp) 15 ml Q4H PRN PO 03/01/18 22:30 03/31/18 22:29 Ondansetron HCl (Zofran Inj) 4 mg Q6H PRN IV 03/01/18 22:30 03/31/18 22:29 03/05/18 02:56 4 MG Nitroglycerin (Nitrostat Tab) 0.4 mg UD PRN SL 03/01/18 22:30 03/31/18 22:29 Polyethylene (Miralax Powder Packet) 17 gm DAILY PRN PO 03/01/18 22:30 03/31/18 22:29 03/05/18 14:39 17 GM Paroxetine HCl (pAXil TAB) 20 mg DAILY PO 03/02/18 09:00 04/01/18 08:59 03/06/18 08:26 20 MG Thiamine HCl (Vitamin B-1 Tab) 100 mg Q24H PO 03/02/18 08:00 04/01/18 07:59 03/06/18 08:27 100 MG Lorazepam (Ativan Tab) PRN Dosing -Active Protocol UD PRN PO 03/01/18 22:30 03/31/18 22:29 Folic Acid (Folvite Tab) 1 mg QAM PO 03/02/18 09:00 04/01/18 08:59 03/06/18 08:27 1 MG Multivitamins/ Minerals (Multivitamin W/ Minerals Tab) 1 tab QAM PO 03/02/18 09:00 04/01/18 08:59 03/06/18 08:27 1 TAB Insulin Glargine (Lantus Solostar Pen) 10 units HS SC 03/02/18 21:00 04/01/18 20:59 03/05/18 22:02 10 UNITS Miscellaneous (Iv Fluids Completed) 1 ea PRN PRN N/A 03/01/18 23:00 03/01/19 22:59 Lorazepam (Ativan Tab) 0.5 mg Q4H PRN PO 03/02/18 09:45 04/01/18 09:44 Sucralfate (Carafate Susp) 1 gm ACHS PO 03/02/18 11:00 04/01/18 10:59 03/06/18 08:27 1 GM Dicyclomine HCl (Bentyl Tab) 20 mg TID PRN PO 03/02/18 10:30 04/01/18 10:29 Insulin Aspart (novoLOG ASPART) SLIDING SCALE G... ACHS SC 03/02/18 11:00 04/01/18 10:59 03/06/18 12:42 3 UNITS Pantoprazole Sodium (Protonix Tab) 40 mg BID PO 03/05/18 21:00 04/04/18 20:59 03/06/18 08:27 40 MG Hydromorphone HCl (Dilaudid Inj) 1 mg Q6H PRN IV 03/05/18 22:00 03/15/18 21:59 03/06/18 08:34 1 MG Tramadol HCl (Ultram Tab) 50 mg Q6H PRN PO 03/05/18 18:30 04/04/18 18:29
[2018-03-06] MEDS ORDERED: ACET-1693 PO (16:06)
[2018-03-06] MEDS ORDERED: PANT40TA2 PO (16:06)
[2018-03-06] MEDS ORDERED: THIA100T10 PO (16:06)
[2018-03-06] MEDS ORDERED: IBUP-1277 PO (16:06)
[2018-03-06] MEDS ORDERED: FLV1 PO (16:06)
--- NOTE | 2018-03-06 16:15 | Discharge Summary ---
Discharge Summary Date of Service Mar 06, 2018. Discharge Summary Admission Date: Mar 02, 2018 at 10:39 Discharge Date: Mar 06, 2018 Discharge Disposition: Home Principal Diagnosis: Persistent upper quadrant abdominal pain, Resolved, likely secondary to Alcohol Use Secondary Diagnoses/Problems: Please refer to hospital course below. Procedures: EGD: DICTATED BY: Colton Moreland MD Patient Name: Raffi Zeng Procedure Date: 03/05/2018 12:00 PM Date of : 1975 Admit Type: Inpatient Age: 42 Gender: Male Attending MD: Colton Moerland MD Procedure: Upper GI endoscopy Providers: Colton Moreland MD Referring MD: Antony Lind Indications: Epigastric abdominal pain Medicines: See the Anesthesia note for documentation of the administered medications Complications: No immediate complications. Estimated Blood Loss: Estimated blood loss: none. Procedure: Pre-Anesthesia Assessment: - Prior to the procedure, a History and Physical was performed, and patient medications, allergies and sensitivities were reviewed. The patient's tolerance of previous anesthesia was reviewed. - The risks and benefits of the procedure and the sedation options and risks were discussed with the patient. All questions were answered and informed consent was obtained. - Patient identification and proposed procedure were verified prior to the procedure by the physician and the nurse. The procedure was verified in the pre-procedure area. - Pre-procedure physical examination revealed no contraindications to sedation. - After reviewing the risks and benefits, the patient was deemed in satisfactory condition to undergo the procedure. After obtaining informed consent, the endoscope was passed under direct vision. Throughout the procedure, the patient's blood pressure, pulse, and oxygen saturations were monitored continuously. The scope was introduced through the mouth, and advanced to the third part of duodenum. The upper GI endoscopy was accomplished without difficulty. The patient tolerated the procedure well. Findings: The esophagus was normal. The stomach was normal. The examined duodenum was normal. The cardia and gastric fundus were normal on retroflexion. Impression: - Normal esophagus. - Normal stomach. - Normal examined duodenum. - No specimens collected. Recommendation: - [facility]. Colton Moreland M.D. Colton Moreland MD 03/05/2018 12:44:50 PM This report has been signed electronically. Note Initiated On: 03/05/2018 12:00 PM Number of Addenda: 0 I attest to the content of the Intraoperative Record and orders documented therein, exceptions below CT ABD/PELVIS IV CONTRAST ONLY CLINICAL HISTORY: Generalized abdominal pain COMPARISON STUDY: The 2017 TECHNIQUE: Following the IV administration of 114 mL of Optiray-320, CT scan of the abdomen and pelvis was performed from the lung bases to the proximal femurs. Images are reviewed in the axial, sagittal, and coronal planes. IV contrast was administered without complication. A dose lowering technique was utilized adhering to the principles of ALARA. CT DOSE: 635.95 mGy.cm FINDINGS: Lower chest: The heart is normal in size and configuration, without pericardial effusion. The lung bases and pleural spaces are clear. Liver: There is mild hepatic steatosis. No focal masses are visualized. Gallbladder: Surgically absent Spleen: Borderline enlarged measuring 12.5 cm Pancreas: Unremarkable. Adrenal glands: Unremarkable. Kidneys: There is symmetric renal cortical enhancement. The kidneys are normal in size without hydronephrosis. Bowel: There are no transition zones indicate bowel obstruction. There is no evidence of acute diverticulitis. By history the appendix is surgically absent. Peritoneum: There is no intraperitoneal free air or abdominal ascites. Vasculature: The abdominal aorta is normal in course and caliber. Adenopathy: None. Pelvic viscera: There is minimal bladder distention. Skeletal structures: Postsurgical changes are present within the lumbar spine. IMPRESSION: 1. No evidence of bowel obstruction. No evidence of free air 2. No evidence of acute diverticulitis 3. Minimal bladder distention 4. Borderline splenomegaly Electronically signed by: Cheng Diaz M.D. 03/01/2018 9:16 PM (CHEST FOR PE) ANGIO WITH CT DOSE: 536.23 mGy.cm HISTORY: 42 years-old Male with . Acute chest pain with elevated D dimer level TECHNIQUE: Multiple CTA images of the chest were obtained after the intravenous administration of 115 ml Optiray 320. Coronal and sagittal MIPS were obtained from the axial data set and were submitted for review. A dose lowering technique was utilized adhering to the principles of ALARA. COMPARISON: Chest radiograph 03/01/2018, CT abdomen and pelvis 03/01/2018, CTA chest 01/12/2016 FINDINGS: CTA: Heart is normal in size without pericardial effusion. Coronary arterial calcifications are noted. The thoracic aorta is normal in both course and caliber without aneurysm or dissection. The imaged great vessels appear to be patent. The pulmonary arterial tree is opacified to the level of the segmental branches and demonstrates no focal filling defects to suggest pulmonary thromboembolic disease. CT CHEST: No dominant thyroid nodule identified. There are no pathologically enlarged lymph nodes of the chest identified. There is no pneumothorax or pleural effusion. No focal airspace consolidation to suggest pneumonia. There are no suspicious pulmonary nodules or masses identified. Central airways are patent. Prior cholecystectomy. Varices noted within the left upper quadrant of the abdomen. Mild symmetric bilateral gynecomastia. Bones appear intact. IMPRESSION: 1. No acute intrathoracic abnormality identified, specifically no acute aortic pathology or evidence of pulmonary thromboembolic disease. 2. No focal airspace consolidation to suggest pneumonia. 3. Prior cholecystectomy. 4. Mild coronary arterial calcifications are noted. VENOUS DOPPLER LWR EXT BILA HISTORY: Pain edema COMPARISON STUDY: None. FINDINGS: There is normal compressibility, flow, and augmentation within the bilateral lower extremity deep venous systems. IMPRESSION: No DVT within the right or left lower extremity. Consultations: Gastroenterology Pending Studies/Follow-Up: Recommend patient to be on Insulin as he was admitted with DKA, but he has declined despite discussion. Please refer to hospital course below for further details. Medication Reconciliation New Medications: Acetaminophen Tab (Tylenol) 325 Mg Tab 650 MG PO Q6H PRN for Pain for 7 Days, TAB Ibuprofen (Advil) 200 Mg Tab 400 MG PO TID PRN for Pain for 7 Days, #42 TAB always with food Folic Acid (Folic Acid) 1 Mg Tab 1 MG PO QAM for 7 Days, #7 TAB 0 Refills Pantoprazole (Pantoprazole Sodium) 40 Mg Tab 40 MG PO BID for 14 Days, #28 TABS 0 Refills Thiamine Hcl (Vitamin B-1) 100 Mg Tab 100 MG PO Q24H for 7 Days, #7 TAB 0 Refills Continued Medications: Empagliflozin (Jardiance) 25 Mg Tab 25 MG PO DAILY, #30 Paroxetine (Paroxetine HCl) 20 Mg Tab 20 MG PO DAILY Discontinued Medications: Pantoprazole (Pantoprazole Sodium) 40 Mg Tab 40 MG PO DAILY Admission Information HPI (per Admitting provider): CHIEF COMPLAINT: Abdominal pain, chest pain. HISTORY OF PRESENT ILLNESS: This is a 42-year-old male with past medical history significant for alcoholism, recurrent pancreatitis, diabetes, mood disorder, reflux, history of PE as per records, history of chronic pain, history of narcotic abuse as per records . He was recently here for nausea, vomiting , abdominal pain from enteritis and discharged on 11/29/2017. Comes today because of ongoing abdominal pain and nausea since last 2 days. He says severe epigastric pain radiate to his back, about 7-8/10 in severity. There was some nausea and vomiting. He said he vomited 4 times today and his pain is radiating to his chest. When he came in, he has been short of breath, but right now his breathing is okay. He drank 4 beers of alcohol today. Denies any blood in the stools. Normal bowel and bladder movements. Says whenever he eats for last two days the pain is getting worse. Has some headaches and runny nose, has blurry visions. No earache, no sore throat, no difficulty swallowing. No cough, no fever, no chills. The patient was tachycardic in the ER. When he came in, his sugars were running high in the 386 but after giving insulin, his sugars in the 136. He says he is on Jardiance at home, but he was not checking his blood sugars because his glucometer is broken down. Requesting for pain medications. He says 2 mg of Dilaudid every 2 hours works for him. ALLERGIES: No known drug allergies. PAST MEDICAL HISTORY: As mentioned above. PAST SURGICAL HISTORY: Appendectomy, cholecystectomy, vascular device implant, back surgery. MEDICATIONS: Protonix, paroxetine, Jardiance. FAMILY HISTORY: Significant for mood disorder, alcoholism, heart disease. SOCIAL HISTORY: No smoking, but chews tobacco, drinking alcohol every day. REVIEW OF SYMPTOMS: As per HPI. Rest of review of symptoms negative. Physical Exam (per Admitting): GENERAL: The patient is of moderate built, not in distress. VITAL SIGNS: Temperature 36.7, pulse 120s, respiratory rate 18, blood pressure 109/70, oxygen 94% room air. HEENT: No pallor, no icterus. Pupils equal, round, reactive to light. NECK: No JVD, no neck masses, no carotid bruits. CARDIOVASCULAR: S1, S2 heard. Tachycardia. No murmurs, no gallop. RESPIRATORY SYSTEM: Normal AP diameter. No accessory muscle use. No wheezing. No crackles. ABDOMEN: Soft, bowel sounds present. Diffuse tender. Some mild guarding. No rigidity. No distention. CENTRAL NERVOUS SYSTEM: Cranial nerves II-XII grossly intact. Nonfocal. EXTREMITIES: No edema, no erythema. Hospital Course ASSESSMENT AND PLAN: This 42-year-old male presents with severe abdominal pain radiating to chest. 1. Persistent upper quadrant abdominal pain, Resolved, likely secondary to Alcohol Use History of gastritis and pancreatitis -Initial lipase negative, CT abdomen pelvis no acute process -Status post EGD March 05, [address] Moreland: Essentially normal -pain improved through admission pain may be related to abdominal wall pain from vomiting and back pain possibly muscular etiology -received IV Protonix, Sucralfate PO, PRN analgesics - discharge to home, advised to take Tylenol or Ibuprofen PRN for pain 2. Chest pain Resolved Troponins negative EKG no acute findings D-dimer 660, CT chest no PE Doppler ultrasound of the legs: negative for DVT 3. Alcoholism drinks 4-5 beers a day placed on Alcohol Withdrawal Protocol- including Librium taper- completed no signs of overt withdrawal observed advised NO alcohol/smoking 4. Mood disorder. - Continue paroxetine. 5. Diabetes. - The patient was in mild DKA when he came in , given insulin and sugars are 136. - Anion gap closed, no acidosis Continued on insulin Lantus and sliding scale while admitted -A1c 8.7 - advised patient that at this time, I recommend that he start on insulin as he already as he came in with DKA, he may not be producing enough insulin due to recurrent pancreatitis, and at any point, he can have another episode of DKA which could be life threatening this was discussed at length with patient, reiterated multiple times the recommendation for Insulin - patient still said no, im not using insulin repeatedly and when inquired, he just said I cannot do Insulin, and would not elaborate - he said he would like to speak with his primary care physician ff up with Dr. Yee arranged for , 03/08/18, emphasized to patient that he needs to follow up with his PCP on may need referral to [facility] 6. Thrombocytopenia. Platelets 114 down to 80s--> improved to 110s Likely secondary to alcoholism No signs of bleeding repeat CBC, and Monitor as outpatient 7 Hypokalemia replace with PO potassium repeat as outpatient DISPOSITION: discharge to home ff up with PCP 03/08/18 Total time spent on discharge = This includes examination of the patient, discharge planning, medication reconciliation, and communication with other providers. Discharge Instructions Discharge Instructions Date of Service Mar 06, 2018. Admission Reason for Admission: Abdominal Pain,Chest Pain Discharge Discharge Diagnosis / Problem: ABDOMINAL PAIN Discharge Goals Goal(s): Diagnostic testing, Therapeutic intervention Activity Recommendations Activity Limitations: as noted below (NO HEAVY EXERTION UNTIL REEVALUATED BY PRIMARY CARE PHYSICIAN) Lifting Limitations: until after follow-up appointment Exercise/Sports Limitations: until after follow-up appointment Driving or Machine Use: No driving until reevaluated by primary care physicianNO DRIVING UNTIL RE-EVALUATED BY PRIMARY CARE PHYSICIAN . Instructions / Follow-Up Instructions / Follow-Up PLEASE REVIEW YOUR NEW MEDICATION LIST AND FOLLOW INSTRUCTIONS CAREFULLY. ONLY TAKE MEDICATIONS ADVISED. IF YOU HAVE QUESTIONS, CONTACT YOUR PRIMARY CARE DOCTOR. IT IS VERY IMPORTANT THAT YOU FOLLOW UP THIS THURSDAY MARCH 08, 2018 WITH YOUR PRIMARY CARE PHYSICIAN- DR. YEE AT 3:00PM. YOU NEED TO DISCUSS WITH HIM YOUR DIABETES MEDICATION. CHECK YOUR BLOOD SUGAR AT LEAST THREE TIMES A DAY. IF THE BLOOD SUGAR LEVEL, IS 250 OR ABOVE, PLEASE CALL DR. YEE IMMEDIATELY FOR ADVICE. IF YOUR SYMPTOMS RETURN, OR IF YOU ARE FEELING WORSE, HAVING ABDOMINAL PAIN, NAUSEA/VOMITING, WEAKNESS, FEVERS, HEADACHE, DIZZINESS. PLEASE CALL YOUR PRIMARY CARE DOCTOR OR RETURN TO THE ER IMMEDIATELY. NO ALCOHOL OR SMOKING. Current Hospital Diet Patient's current hospital diet: Diabetes Type 2 Diet Discharge Diet Recommended Diet: AHA Diet (Heart Healthy), Diabetes Type 2 Diet Procedures Procedures Performed: UPPER GI ENDOSCOPY Pending Studies Studies pending at discharge: no Laboratory Results Hemoglobin A1c Test 03/06/18 06:32 Range/Units Estimated Average Glucose 203 mg/dl Hemoglobin A1c 8.7 H 4.5-5.6 % Medical Emergencies . Who to Call and When: Medical Emergencies: If at any time you feel your situation is an emergency, please call 911 immediately. . Non-Emergent Contact Non-Emergency issues call your: Primary Care Provider Call Non-Emergent contact if: you have a fever, your pain is not controlled, your pain is worsening, your pain is unusual for you, you have any medication questions . . "Provider Documentation" section prepared by Antony Lind. .
== END 2018-03-06 16:30 | disposition home or self-care (01) | DRG 438 ==
LOC: C.EDB 18:22 → C.MED 22:25 → ENRESERV 23:07 → OBSVTOIN 03-02 10:39
PROVIDERS: ADMIT Internal Medicine; ATTEND Internal Medicine
PROC: 0DJ08ZZ Inspection of Upper Intestinal Tract, Via Natural or Artificial Opening Endoscopic (ICD-10-PCS; principal; 2018-03-05 11:25)
DX: K86.0 Alcohol-induced chronic pancreatitis (principal); E11.10 Type 2 diabetes mellitus with ketoacidosis without coma; E87.6 Hypokalemia; D69.6 Thrombocytopenia, unspecified; R07.9 Chest pain, unspecified; F32.9 Major depressive disorder, single episode, unspecified; K21.9 Gastro-esophageal reflux disease without esophagitis; F10.20 Alcohol dependence, uncomplicated; Z79.899 Other long term (current) drug therapy

== ENCOUNTER 2018-09-16 15:44 | Inpatient (IN) ==
[2018-09-16] MEDS ORDERED: HYDROmorphone INJ 1 MG/ML SYRINGE IV PRN (16:43)
[2018-09-16] MEDS ORDERED: KETOROLAC 30 MG/ML VIAL IV STA (16:43)
[2018-09-16] MEDS ORDERED: ONDANSETRON INJ 2 MG/ML 2 ML VIAL IV STA ×2 (16:43→19:31)
[2018-09-16] MEDS ORDERED: SODIUM CHLORIDE 0.9% 1000ML 1,000 ML IV SCH (16:45)
[2018-09-16 17:21] LABS: Basophils # (auto) 0.01 K/uL (0-0.2); Basophils % (auto) 0.1 %; Eosinophils # (auto) 0.03 K/uL (0-0.5); Eosinophils % (auto) 0.3 %; Hematocrit (blood only) 46.4 % (42-52); Hemoglobin 17.1 g/dL (14.0-18.0); Immature Granulocytes # (auto) 0.01 K/uL (0.00-0.02); Immature Granulocytes % (auto) 0.1 %; Lymphocytes # (auto) 1.54 K/uL (1.2-3.4); Lymphocytes % (auto) 16.2 %; Mean Corpuscular Hgb Conc 36.9 g/dL (32-36); Mean Platelet Volume 9.7 fL (7.4-10.4); Monocytes # (auto) 0.55 K/uL (0.11-0.59); Monocytes % (auto) 5.8 %; Neutrophils # (auto) 7.37 K/uL (1.4-6.5); Neutrophils % (auto) 77.5 %; Platelet Count 191 K/uL (130-400); RDW Coefficient of Variation 12.3 % (11.5-14.5); RDW Standard Deviation 41.1 fL (36.4-46.3); White Blood Count 9.51 K/uL (4.8-10.8)
[2018-09-16 17:25] LABS: Appearance Urine Cloudy (Clear); Bilirubin Urine Negative (Negative); Color Urine Yellow; Glucose Urine UA 3+ (Negative); Ketones Urine 1+ (Negative); Leukocyte Esterase Urine Negative (Negative); Nitrite Urine Negative (Negative); Protein Urine Negative (Negative); Specific Gravity Urine 1.032 (1.000-1.030); Urobilinogen Urine Negative (Negative)
[2018-09-16 17:46] LABS: Bacteria Urine Automated Negative (Negative); Epithelial Cell Urine Auto 0-5 /lpf (0-5); WBC Urine Automated 0 /hpf (0-5)
[2018-09-16 17:52] LABS: Albumin Globulin Ratio 0.9 (0.9-2); Albumin Level 4.1 gm/dl (3.4-5.0); BUN Creatinine Ratio 11.5 (10-20); Bilirubin,Total 0.6 mg/dl (0.2-1); Calcium 9.6 mg/dl (8.5-10.1); Creatinine Clr Calc Pharmacy 80.9 ml/min; Est GFR (African American) 70.3; Est GFR (Non-African American) 60.7; Globulin 4.7 gm/dl (2.5-4.0); Potassium 3.5 mmol/L (3.5-5.1); Total Protein 8.8 gm/dl (6.4-8.2)
[2018-09-16] MEDS ORDERED: HYDROmorphone INJ 1 MG/ML SYRINGE IV STA ×3 (18:07→19:31)
[2018-09-16] MEDS ORDERED: IOVERSOL 100ml IV PRN (18:18)
--- NOTE | 2018-09-16 18:33 | CT Scan Report ---
CT OF THE ABDOMEN AND PELVIS WITH CONTRAST CLINICAL HISTORY: Epigastric pain. History of pancreatitis. COMPARISON STUDY: CT of the abdomen and pelvis March 14, 2015. MRCP March 15, 2015. TECHNIQUE: Following IV administration of 93 mL of Optiray-320, axial images of the abdomen and pelvi s were obtained from the lung bases to the proximal femurs. Images were reviewed in the axial, sagitt al, and coronal planes. IV contrast was administered without complication. Automated exposure contro l was utilized for the study. A dose lowering technique was utilized adhering to the principles of A DARLYN. CT DOSE: 627.51 mGy.cm FINDINGS: Lung bases are clear. There is no biliary ductal dilatation status post cholecystectomy. Th e spleen, adrenal glands and kidneys are normal. There is no hydronephrosis. Pancreatic glandular atr ophy without pancreatic ductal dilatation is noted. There is apparent mild infiltration adjacent to t he third portion the duodenum and the uncinate process of the pancreas. There is no peripancreatic fl uid collection. Left upper quadrant varices are again noted. These are unchanged. The appendix is not visualized. There is moderate distention of the bladder. No pneumatosis, free air or portal venous g as is present. There is colonic diverticulosis without evidence for acute diverticulitis. Postoperati ve findings within the spine are noted. IMPRESSION: 1. Apparent subtle infiltration adjacent to the third portion of the duodenum and the uncinate proces s of the pancreas. This may be within normal limits however duodenitis or acute pancreatitis could ap pear similar. 2. No bowel obstruction. 3. Moderate distention of the bladder. 4. Pancreatic glandular atrophy. Electronically signed by: Quinton Corrales M.D. 09/16/2018 6:32 PM
[2018-09-16] MEDS ORDERED: SODIUM CHLORIDE 0.9% 1000ML 1,000 ML IV ONE (18:37)
--- NOTE | 2018-09-16 21:37 | Emergency Department Note ---
Entered by Venkat Velázquez acting as a scribe for Gerardo Braga MD History of Present Illness General Chief complaint: Abdominal Pain Stated complaint: CHEST PAIN,STOMACH PAIN,BACK PAIN Time Seen by Provider: 09/16/18 16:20 Source: patient History of Present Illness Provider complaint: Abdominal pain Onset (ago): day(s) 1 Location: abdomen Radiation: back Severity: similar to prior episodes Pain Consistency: + constant Maximum Pain Intensity: 7 Relieved By: + none Associated symptoms: + nausea/vomiting and + other (No urinary symptoms, No bowel changes, ); no fever/chills The patient is a 42 year old male w/ PMHx DM, pancreatitis, cholecystectomy, appendectomy, acid reflux, substance abuse, depression, PE, and Renae's esophagus who presents to the ED w/ CC of constant RUQ abdominal pain beginning yesterday around 1900. He states the pain radiates to his back and is similar to episodes he has had in the past given his history of pancreatitis. He also mentioned that he did drink 12 beers yesterday. The patient has also been vomiting but denies any fevers, chills, urinary symptoms, bowel changes, or recent changes in medications. He did not try anything at home for the pain. The patient does use tobacco. Home Medications Home Medications Medication Instructions Recorded Confirmed Type metformin 1,000 mg PO DAILY 09/16/18 09/16/18 History pantoprazole 40 mg PO DAILY 09/16/18 09/16/18 History paroxetine HCl 20 mg PO DAILY 09/16/18 09/16/18 History Allergies Allergy/AdvReac Type Severity Reaction Status Date / Time No Known Drug Allergies Allergy Unknown NONE Verified 09/16/18 16:39 Past Med/Surg History Medical History DM type 2 (diabetes mellitus, type 2) (Chronic) Renae's esophagus (Chronic Unknown) "per EGD 11/23/09 " On 05/31/11 09:06 Martinez Jose wrote "per EGD 11/23/09 " H/O acute pancreatitis (Chronic) "recurrent" Alcohol abuse (Chronic Unknown) History of substance abuse (Chronic) Depression (Chronic) Panic disorder (Chronic) Lumbar degenerative disc disease (Chronic) Suicidal ideation (Chronic) Mood disorder (Chronic) Suicide attempt (Resolved) Suicidal ideation (Resolved) Intentional drug overdose (Resolved) Mood disorder (Chronic) Depression (Chronic) Pulmonary embolism (Resolved) Abdominal pain Chest pain Hyperglycemia (Acute) Neuropathy (Acute) Surgical History H/O esophagogastroduodenoscopy (Chronic) "EGD 11/23/2009- mild gastritis, suspicious for gastroparesis, Z-line irregular EUS 02/04/2010- mild chronic pancreatitis, pronounced cholesterolosis of gallbladder, no biliary dilation or stones, probable gastroparesis EGD 10/31/2014- gastritis" Social History Feels Safe at Home: Yes Smoking Status: Never smoker Review of Systems See HPI for pertinent positives & negatives. and A total of 10 systems reviewed and were otherwise negative Physical Exam Vital Signs Vital Signs - 24 hr 09/16/18 15:52 09/16/18 17:18 09/16/18 18:58 Temperature 37.0 C Temperature Source Oral Sepsis Recent Fever Within 48 Hours No Sepsis Action Taken by Nursing No Action Required Pulse Rate 118 H Pulse Rate [Right Finger] 110 H Pulse Rhythm Regular Pulse Strength Normal Respiratory Rate 20 19 Respiratory Effort / Characteristics Non-Labored Respiratory Depth Normal Respiratory Pattern Regular Blood Pressure 124/77 Blood Pressure [Left Arm] 115/55 L Blood Pressure Mean 92 Blood Pressure Mean [Left Arm] 75 Blood Pressure Position Sitting Pulse Oximetry 96 93 94 Oxygen Delivery Method Room Air Room Air 09/16/18 21:30 Temperature Temperature Source Sepsis Recent Fever Within 48 Hours Sepsis Action Taken by Nursing Pulse Rate 98 H Pulse Rate [Right Finger] Pulse Rhythm Pulse Strength Respiratory Rate 19 Respiratory Effort / Characteristics Respiratory Depth Respiratory Pattern Blood Pressure 115/59 L Blood Pressure [Left Arm] Blood Pressure Mean Blood Pressure Mean [Left Arm] Blood Pressure Position Pulse Oximetry 98 Oxygen Delivery Method Room Air GENERAL: Mildly uncomfortable appearing, well nourished, non-toxic. EYE EXAM: Normal conjunctiva. PERRL, no anisocoria and EOM's grossly intact w/o pains. OROPHARYNX: No exudate, posterior pharynx is clear, no tonsillar/uvular deviation or swelling. NECK: Supple, no nuchal rigidity, no adenopathy, non-tender. No signs of meningismus. LUNGS: Clear to auscultation bilaterally. Normal chest wall mechanics. HEART: NSR, no MRG. ABDOMEN: Abdomen soft, Epigastric RUQ pain, normo-active bowel sounds, no masses , no rebound or guarding. BACK: No CVA TTP. SKIN: No rashes and no bruising. UPPER EXTREMITIES: Upper extremities are grossly normal. LOWER EXTREMITIES: No pitting edema. No calf pain. Monitor bracelet noted on left ankle NEURO EXAM: Alert and oriented. Moves all 4 extremities on command w/o issue. Course 1639: Past medical records reviewed. The patient was evaluated in room C05, and a complete history and physical examination were performed. 1842: I spoke to Katina ESCOBAR about the patient's case and she is going to accept him for further evaluation. 1850: I updated the patient on the treatment plan and he agrees. Consultations Consultation #1: I spoke to Katina ESCOBAR about the patient's case and she is going to accept him for further evaluation. Time: 18:42 Administered Medications Hydromorphone HCl (Dilaudid) 1 mg IV Q15M PRN PRN Reason: Pain Stop: 09/30/18 16:42 Last Admin: 09/16/18 17:13 Dose: 1 mg Ioversol (Optiray 320 100ml) 93 ml IV ONCE PRN PRN Reason: Interaction Checking Stop: 09/20/18 18:17 Last Admin: 09/16/18 18:19 Dose: 93 ml Discontinued Medications Hydromorphone HCl (Dilaudid) 1 mg IV NOW STA Stop: 09/16/18 18:08 Last Admin: 09/16/18 18:10 Dose: 1 mg Hydromorphone HCl (Dilaudid) 1 mg IV NOW STA Stop: 09/16/18 18:38 Last Admin: 09/16/18 18:57 Dose: 1 mg Hydromorphone HCl (Dilaudid) 1 mg IV NOW STA Stop: 09/16/18 19:32 Last Admin: 09/16/18 19:58 Dose: 1 mg Sodium Chloride (Nss 1000ml) 1,000 mls @ 999 mls/hr IV .Q1H1M RAMOS Stop: 09/16/18 17:45 Last Infusion: 09/16/18 18:25 Dose: 0 mls/hr Admin: 09/16/18 17:13 Dose: 999 mls/hr Sodium Chloride (Nss 1000ml) 1,000 mls @ 999 mls/hr IV .Q1H1M ONE Stop: 09/16/18 19:37 Last Infusion: 09/16/18 20:37 Dose: 0 mls/hr Admin: 09/16/18 19:00 Dose: 999 mls/hr Ketorolac Tromethamine (Toradol) 30 mg IV NOW STA Stop: 09/16/18 16:44 Last Admin: 09/16/18 17:13 Dose: 30 mg Ondansetron HCl (Zofran) 4 mg IV NOW STA Stop: 09/16/18 16:44 Last Admin: 09/16/18 17:12 Dose: 4 mg Ondansetron HCl (Zofran) 4 mg IV NOW STA Stop: 09/16/18 19:32 Last Admin: 09/16/18 19:42 Dose: 4 mg Medical Decision Making Medical Records Attestation: I reviewed the patient's medical records. Home Medications Current Medication List: was personally reviewed by me Laboratory Data Attestation: I reviewed the patient's lab results. Result diagrams: 09/16/18 17:05 09/16/18 17:05 Lab Results 09/16/18 09/16/18 09/16/18 Range/Units 17:05 17:05 17:15 WBC 9.51 (4.8-10.8) K/uL RBC 5.10 (4.7-6.1) M/uL Hgb 17.1 (14.0-18.0) g/dL Hct 46.4 (42-52) % MCV 91.0 (80-100) fL MCH 33.5 (25-34) pg MCHC 36.9 H (32-36) g/dL RDW Std Deviation 41.1 (36.4-46.3) fL RDW Coeff of Gucci 12.3 (11.5-14.5) % Plt Count 191 (130-400) K/uL MPV 9.7 (7.4-10.4) fL Immature Gran % (Auto) 0.1 % Neut % (Auto) 77.5 % Lymph % (Auto) 16.2 % [place] % (Auto) 5.8 % Eos % (Auto) 0.3 % Baso % (Auto) 0.1 % Immature Gran # (Auto) 0.01 (0.00-0.02) K/uL Neut # (Auto) 7.37 H (1.4-6.5) K/uL Lymph # (Auto) 1.54 (1.2-3.4) K/uL [place] # (Auto) 0.55 (0.11-0.59) K/uL Eos # (Auto) 0.03 (0-0.5) K/uL Baso # (Auto) 0.01 (0-0.2) K/uL Sodium 128 L (136-145) mmol/L Potassium 3.5 (3.5-5.1) mmol/L Chloride 91 L (98-107) mmol/L Carbon Dioxide 17 L (21-32) mmol/L Anion Gap 20.0 H (3-11) BUN 16 (7-18) mg/dl Creatinine 1.40 (0.6-1.4) mg/dl Est Cr Clr Drug Dosing 80.9 ml/min Est GFR ( Amer) 70.3 Est GFR (Non-Af Amer) 60.7 BUN/Creatinine Ratio 11.5 (10-20) Glucose 496 H* (70-99) mg/dl Calcium 9.6 (8.5-10.1) mg/dl Total Bilirubin 0.6 (0.2-1) mg/dl AST 17 (15-37) U/L ALT 25 (12-78) U/L Alkaline Phosphatase 104 (45-117) U/L Total Protein 8.8 H (6.4-8.2) gm/dl Albumin 4.1 (3.4-5.0) gm/dl Globulin 4.7 H (2.5-4.0) gm/dl Albumin/Globulin Ratio 0.9 (0.9-2) Lipase 156 (73-393) U/L Beta-Hydroxybutyric Acd 11.67 H (0.2-2.81) mg/dl Urine Color Yellow Urine Appearance Cloudy H (Clear) Urine pH 5.0 (4.5-7.5) Ur Specific [place] 1.032 H (1.000-1.030) Urine Protein Negative (Negative) Urine Glucose (UA) 3+ H (Negative) Urine Ketones 1+ H (Negative) Urine Blood Negative (Negative) Urine Nitrite Negative (Negative) Urine Bilirubin Negative (Negative) Urine Urobilinogen Negative (Negative) Ur Leukocyte Esterase Negative (Negative) Urine WBC (Auto) 0 (0-5) /hpf Urine RBC (Auto) 0-4 (0-4) /hpf U Hyaline Cast (Auto) 1-5 (0-5) /lpf U Epithel Cells (Auto) 0-5 (0-5) /lpf Urine Bacteria (Auto) Negative (Negative) Imaging Data Radiologist's Impression: Radiology results as stated below per my review and the radiologist's interpretation: CT OF THE ABDOMEN AND PELVIS WITH CONTRAST CLINICAL HISTORY: Epigastric pain. History of pancreatitis. COMPARISON STUDY: CT of the abdomen and pelvis March 14, 2015. MRCP March 15, 2015. TECHNIQUE: Following IV administration of 93 mL of Optiray-320, axial images of the abdomen and pelvis were obtained from the lung bases to the proximal femurs. Images were reviewed in the axial, sagittal, and coronal planes. IV contrast was administered without complication. Automated exposure control was utilized for the study. A dose lowering technique was utilized adhering to the principles of ALARA. CT DOSE: 627.51 mGy.cm FINDINGS: Lung bases are clear. There is no biliary ductal dilatation status post cholecystectomy. The spleen, adrenal glands and kidneys are normal. There is no hydronephrosis. Pancreatic glandular atrophy without pancreatic ductal dilatation is noted. There is apparent mild infiltration adjacent to the third portion the duodenum and the uncinate process of the pancreas. There is no peripancreatic fluid collection. Left upper quadrant varices are again noted. These are unchanged. The appendix is not visualized. There is moderate distention of the bladder. No pneumatosis, free air or portal venous gas is present. There is colonic diverticulosis without evidence for acute diverticulitis. Postoperative findings within the spine are noted. IMPRESSION: 1. Apparent subtle infiltration adjacent to the third portion of the duodenum and the uncinate process of the pancreas. This may be within normal limits however duodenitis or acute pancreatitis could appear similar. 2. No bowel obstruction. 3. Moderate distention of the bladder. 4. Pancreatic glandular atrophy. Electronically signed by: Quinton Corrales M.D. 09/16/2018 6:32 PM Blood Pressure Blood Pressure Findings: Low blood pressure Blood Pressure Disposition: further management by hospitalist MDM Narrative The patient is a 42 year old male w/ PMHx DM, pancreatitis, cholecystectomy, appendectomy, acid reflux, substance abuse, depression, PE, and Renae's esophagus who presents to the ED w/ CC of constant RUQ abdominal pain beginning yesterday around 1900. Differential diagnoses includes but is not limited to gastritis, peptic ulcer disease, GERD, gallbladder disease, pancreatitis, small bowel obstruction, acute coronary syndrome, pericarditis, ischemic bowel, irritable bowel disease, irritable bowel syndrome, appendicitis, diverticulitis, malignancy, hernia, urinary tract infection, torsion, perforation, trauma, infectious. Patient was seen and evaluated the bedside. The patient does have a known history of pancreatitis. The patient drank 12 beers last evening and has right upper quadrant epigastric pain. Patient has had no improvement of his pain but has not tried anything at home. The patient has had nausea with vomiting. Patient did a blood work completed along with a CT of the abdomen pelvis. Patient was also given medications for symptom control. Patient CT shows likely pancreatitis given the patient's history physical exam. The patient does not have an elevated lipase. The patient was requiring persistent pain medication IV fluids and antiemetics. Given this and the patient's history believe he would benefit from further evaluation and treatment. Patient was admitted to the medicine service. Impression & Plan Pancreatitis, Alcohol abuse, Encounter for tobacco use cessation counseling, Encounter for alcohol abuse counseling and surveillance, Acute hyperglycemia Discharge Plan Visit Data Chief Complaint: Abdominal Pain Stated Complaint: CHEST PAIN,STOMACH PAIN,BACK PAIN ED Provider: Gerardo Braga Discharge Problem: Pancreatitis, Alcohol abuse, Encounter for tobacco use cessation counseling, Encounter for alcohol abuse counseling and surveillance, Acute hyperglycemia Patient Disposition: Being Evaluated by Hospitalist Discharge Instructions Interventions: ED Discharge Assessment Last Done: 09/16/18 21:30 Forms Stand Alone Forms: Call Back Authorization, My [facility] Prescriptions Prescriptions: No Action paroxetine HCl 20 mg tablet 20 mg PO DAILY RF: 0 pantoprazole 40 mg tablet,delayed release (DR/EC) 40 mg PO DAILY RF: 0 metformin 500 mg tablet extended release 24 hr 1,000 mg PO DAILY RF: 0 Referrals Referrals: Dhiraj Myers [Primary Care Provider] - The scribe's documentation has been prepared under my direction and personally reviewed by me in its entirety. I confirm that the note above accurately reflects all work, treatment, procedures, and medical decision making performed by me.
[2018-09-16] MEDS ORDERED: MODERATE STRESS LEVEL ONE (21:46)
[2018-09-16] MEDS ORDERED: DC ALL PREVIOUSLY ORDERED DIABETES MEDS ONE (21:46)
[2018-09-16] MEDS ORDERED: INSULIN REGULAR 250 UNITS in SODIUM CHLORIDE 0.9% 247.5 ML IV SCH (21:46)
[2018-09-16] MEDS ORDERED: PENDING D5 1/2NS+20mEq KCL IVF SCH (21:46)
[2018-09-16] MEDS ORDERED: NITROGLYCERIN SL 0.4 MG/TAB TAB SL PRN (21:46)
[2018-09-16] MEDS ORDERED: DKA GOAL RANGE 150-250 mg/dl ONE (21:46)
[2018-09-16] MEDS ORDERED: INSULIN ASPART 100 UNITS/ML 3 ML PEN SC SCH (21:46)
[2018-09-16] MEDS ORDERED: PENDING NSS+20mEq KCL IVF SCH (21:46)
[2018-09-16] MEDS ORDERED: ACETAMINOPHEN 325 MG TAB PO PRN (21:46)
[2018-09-16] MEDS ORDERED: GABAPENTIN 1200MG ALCOHOL WITHDRAWAL LOAD PO STA (21:46)
[2018-09-16] MEDS ORDERED: MULTI-VITAMIN INFUSION 10 ML, THIAMINE HCL 100 MG, FOLIC ACID 1 MG in SODIUM CHLORIDE 0... IV SCH (22:00)
[2018-09-16] MEDS ORDERED: PHARMACY GLYCEMIC MGMT CONSULT PRN (22:12)
[2018-09-16 22:23] LABS: Calcium 8.5 mg/dl (8.5-10.1); Creatinine Clr Calc Pharmacy 103.9 ml/min; Est GFR (African American) 95.2; Est GFR (Non-African American) 82.1; Magnesium 2.2 mg/dl (1.8-2.4); Phosphorus 2.4 mg/dl (2.5-4.9); Potassium 3.7 mmol/L (3.5-5.1)
[2018-09-16] MEDS ORDERED: GABAPENTIN 600 MG TAB PO SCH (22:30)
[2018-09-16] MEDS ORDERED: GLUCAGON FOR INJ 1 MG VIAL IM PRN (22:31)
[2018-09-16] MEDS ORDERED: GLUCOSE 40% GEL 15 GM TUBE PO PRN (22:31)
[2018-09-16] MEDS ORDERED: DEXTROSE 50% 50 ML SYRINGE IV PRN (22:31)
[2018-09-16] MEDS ORDERED: GLUCOSE 10 TABS/TUBE PO PRN (22:31)
[2018-09-16] MEDS ORDERED: CARBOHYDRATES FOR HYPOGLYCEMIA PO PRN (22:31)
[2018-09-16] MEDS ORDERED: INSULIN HUMAN REGULAR IV BOLUS 2.5 UNITS in SYRINGE 0 ML IV ONE (22:40)
[2018-09-16] MEDS: PANTOprazole 40 MG in SYRINGE 0 ML IV SCH (22:49)
--- NOTE | 2018-09-16 23:13 | History and Physical Report ---
DATE OF ADMISSION: 09/16/2018 CHIEF COMPLAINT: Severe abdominal pain. HISTORY OF PRESENT ILLNESS: This is a 42-year-old male with past medical history significant for alcoholism and multiple admissions for alcoholism and pancreatitis, diabetes, seems to be noncompliant with insulin, history of alcoholic gastritis, GERD, mood disorder, history of PE as per records, chronic pain and history of narcotic abuse as per records, history of bipolar depression, ADHD status post suicide attempt presents with severe abdominal pain. The patient was here in the last week of March 2018 with the same issues and he did okay and he was discharged and he refused to go to rehab at that time and refused out patient endoscopic ultrasound for his pancreatitis at that time, but patient says since discharge, he has tried to quit drinking and he did not drink much, only here and there, but last weekend he was drinking heavily again, 12 pack of beers a day and last night he started to develop again severe abdominal pain. He could not sleep because of pain. The pain was in the epigastric area going band like to the back and it was sometimes depending on his position radiating to his chest and causing some shortness of breath. It was not getting better and he tried to eat food and it made the pain worse. As it was not getting better, he came to the ER today. Denies any fever, chills. No headache, no blurred visions, no sore throat, no cough. He says no blood in the stools, no black stools. Normal bowel and bladder movements. Lives with his mother. He was in alcohol rehab in the past. Requesting for pain medications. ALLERGIES: No known drug allergies. PAST MEDICAL HISTORY: As mentioned above. PAST SURGICAL HISTORY: He has had biopsy, he has had endoscopic ultrasound, laparoscopic cholecystectomy, A-port placement removal, appendectomy. MEDICATIONS: Currently, patient is only on metformin 1000 mg daily, paroxetine 20 mg daily, and Protonix 40 mg p.o. daily. FAMILY HISTORY: Significant for father has depression, alcohol abuse. SOCIAL HISTORY: The patient is , lives with his mother. Chews tobacco. Chronic alcoholism, was in rehab around 2000 and also in 2016. No drug abuse as per the records. REVIEW OF SYMPTOMS: As per HPI. Rest of the review of symptoms negative. PHYSICAL EXAMINATION: GENERAL: The patient is of moderate build, not in acute distress. VITAL SIGNS: Temperature 37, pulse 110, respiratory rate 19, blood pressure 115/59, oxygen 94% on room air. HEENT: No pallor, no icterus. Pupils equal, round, and reactive to light. NECK: Supple, no neck masses seen. CARDIOVASCULAR: S1, S2 heard, regular rate and rhythm, no murmur. RESPIRATORY SYSTEM: Normal AP diameter. No accessory muscle use. No wheezing, no crackles. ABDOMEN: Soft, bowel sounds present. Diffuse tenderness and guarding present. No distention. CENTRAL NERVOUS SYSTEM: Cranial nerves II-XII grossly intact. Nonfocal. EXTREMITIES: No edema, no erythema. LABORATORY DATA: WBC 9.5, hemoglobin 17, hematocrit 46.4, platelets 191. Sodium 128, potassium 3.5, chloride 91, bicarbonate 17, anion gap 20, BUN 16, creatinine 1.4, serum glucose 496, calcium 9.6, total bilirubin 0.6, AST 17, ALT 25, alkaline phosphatase 104, lipase 156, beta hydroxybutyrate 11.6. Urinalysis positive for ketones and glucose. IMAGING DATA: CT of the abdomen and pelvis with contrast shows infiltration adjacent to duodenum and uncinate process of pancreas, this may be within normal limits. However, duodenitis with acute pancreatitis could appear similar. ASSESSMENT AND PLAN: This 42-year-old male presents with alcoholism and abdominal pain, found to be possible pancreatitis. 1. Abdominal pain, possible pancreatitis and duodenitis. The CAT scan was almost similar to last CAT scan. History of chronic alcoholism. Lipase normal. We will treat with n.p.o., IV aggressive fluids, IV pain medications, IV antiemetics, and IV Protonix b.i.d. and consult GI in the a.m. for further recommendation. The patient seems to have refused to follow with endoscopic ultrasound in the past admission. 2. Alcoholism, Was in rehab in 2000 and 2015. refused rehab last admission. We will place him on alcohol withdrawal protocol with gabapentin and IV Ativan p.r.n. We will give banana bag and place him on IV thiamine, folic acid, and multivitamins. 3. Diabetic ketoacidosis. The patient has diabetes. Was On Lantus seems to be noncompliant. The last HbA1c was 8.7. He was on Lantus insulin sliding scale, but it seems like 3 weeks ago, he stopped Lantus.and back on metformin. He now comes with a serum glucose of 496 and anion gap of 20 and also bicarbonate 17. Alcoholism could also playing role here. We will place him on insulin DKA protocol and aggressive IV fluids. Labs as per DKA protocol. Pharmacy consult and diabetes teaching. Once improved, will change back to Lantus and sliding scale. 4. Pseudohyponatremia, mostly secondary to hyperglycemia. Present sodium of 128, but corrected sodium is 135. We will follow the labs. 5. Bipolar depression. Continue paroxetine. 6. Deep venous thrombosis prophylaxis, sequential compression devices and Lovenox. 7. Disposition: Closely monitor in the med/surg tele, level 1 full code. Addendum: refusing Protonix and gabapentin. Does not want gabapentin as it worsens his restless legs. Started on Librium 25mg bid for alcohol withdrawal. MTDD
[2018-09-16] MEDS ORDERED: LORazepam 1 MG/2 ML VIAL IV PRN (23:22)
[2018-09-16] MEDS: HYDROmorphone INJ 1 MG/ML SYRINGE IV PRN (23:36)
[2018-09-16] MEDS ORDERED: NSS + 20MEQ KCL 20 MEQ/1,000 ML BAG IV SCH (23:59)
[2018-09-17] MEDS ORDERED: SODIUM CHLORIDE 0.9% 1000ML 1,000 ML IV SCH
[2018-09-17] MEDS: D5W AND 1/2NSS + 20MEQ KCL 20 MEQ/1,000 ML BAG IV SCH ×2 (01:01→05:53)
[2018-09-17 02:02] LABS: BUN Creatinine Ratio 12.8 (10-20); Calcium 8.5 mg/dl (8.5-10.1); Creatinine Clr Calc Pharmacy 111.1 ml/min; Est GFR (African American) 103.1; Magnesium 2.1 mg/dl (1.8-2.4); Potassium 3.9 mmol/L (3.5-5.1)
[2018-09-17 02:08] LABS: Phosphorus 1.8 mg/dl (2.5-4.9)
[2018-09-17] MEDS: HYDROmorphone INJ 1 MG/ML SYRINGE IV PRN ×3 (02:59→09:28)
[2018-09-17 05:31] LABS: INR 1.1 (0.9-1.1); Prothrombin Time 11.4 Seconds (9.0-12.0)
[2018-09-17 05:48] LABS: BUN Creatinine Ratio 14.5 (10-20); Calcium 8.4 mg/dl (8.5-10.1); Creatinine Clr Calc Pharmacy 124.5 ml/min; Est GFR (African American) 118.4; Est GFR (Non-African American) 102.1; Magnesium 2.2 mg/dl (1.8-2.4); Potassium 3.9 mmol/L (3.5-5.1)
[2018-09-17 05:49] LABS: Phosphorus 2.1 mg/dl (2.5-4.9)
[2018-09-17 07:06] LABS: Estimated Average Glucose 223 mg/dl
[2018-09-17] MEDS: GABAPENTIN 600 MG TAB PO SCH ×3 (07:10→20:45)
[2018-09-17] MEDS ORDERED: INSULIN GLARGINE SOLOSTAR 100 UNITS/ML 3 ML PEN SC ONE (08:15)
[2018-09-17] MEDS: THIAMINE HCL 100 MG in SYRINGE 9 ML IV SCH (09:24)
[2018-09-17] MEDS: PANTOprazole 40 MG in SYRINGE 0 ML IV SCH (09:24)
[2018-09-17] MEDS: PARoxetine HCl 20 MG TAB PO SCH (09:25)
[2018-09-17] MEDS: CEROVITE ADV FORMULA TAB PO SCH ×2 (09:25→09:37)
[2018-09-17] MEDS: FOLIC ACID 1 MG TAB PO SCH (09:25)
[2018-09-17] MEDS: ENOXAPARIN INJ 40 MG/0.4 ML SYR SQ SCH (09:26)
[2018-09-17] MEDS: chlordiazePOXIDE HCl 25 MG CAP PO SCH ×2 (09:26→20:41)
[2018-09-17] MEDS: INSULIN ASPART 100 UNITS/ML 3 ML PEN SC SCH ×4 (09:27→20:40)
[2018-09-17] MEDS ORDERED: HYDROmorphone INJ 1 MG/ML SYRINGE IV ONE (10:00)
[2018-09-17] MEDS: PANTOprazole 40 MG TAB PO SCH ×2 (10:43→20:41)
[2018-09-17 10:45] LABS: Calcium 8.4 mg/dl (8.5-10.1); Creatinine Clr Calc Pharmacy 117.3 ml/min; Est GFR (Non-African American) 95.7; Potassium 4.3 mmol/L (3.5-5.1)
[2018-09-17 10:46] LABS: Phosphorus 2.1 mg/dl (2.5-4.9)
[2018-09-17] MEDS: LACTATED RINGER'S 1,000 ML IV SCH ×3 (10:51→19:32)
--- NOTE | 2018-09-17 10:51 | Pharmacy Report ---
Glycemic Control Consultation - Date of Service September 17, 2018 - Scope Scope: Glycemic Pharmacist consulted by Dr Sousa on 09/16 for glycemic control and to write orders per [facility] inpatient glycemic control protocol - Objective Weight: 94.7 kg Accuchecks BSG (last 24hrs): 09/16/18 09/16/18 09/16/18 17:05 21:36 21:56 Glucose 496 H* 331 H POC Glucose 330 H 09/17/18 09/17/18 09/17/18 00:00 01:37 01:52 Glucose 194 H POC Glucose 199 H 188 H 09/17/18 09/17/18 09/17/18 02:49 03:50 05:03 Glucose 151 H POC Glucose 196 H 177 H 09/17/18 09/17/18 09/17/18 05:45 06:49 07:48 Glucose POC Glucose 141 H 159 H 121 H 09/17/18 09/17/18 07:54 09:54 Glucose 221 H POC Glucose 109 H Laboratory Data (last 24hrs): 09/16/18 09/16/18 09/17/18 17:05 21:56 01:37 Potassium 3.5 3.7 3.9 Carbon Dioxide 17 L 21 29 Anion Gap 20.0 H 13.0 H 5.0 Creatinine 1.40 1.09 1.02 Est Cr Clr Drug Dosing 80.9 103.9 111.1 Beta-Hydroxybutyric Acd 11.67 H 11.90 H 09/17/18 09/17/18 05:03 09:54 Potassium 3.9 4.3 Carbon Dioxide 30 28 Anion Gap 2.0 L 5.0 Creatinine 0.91 0.96 Est Cr Clr Drug Dosing 124.5 117.3 Beta-Hydroxybutyric Acd HbA1c: Hemoglobin A1c 9.4 % (4.5-5.6) H 09/17/18 05:03 - Recent Pertinent Medications Outpatient Anti-diabetic Regimen: * Metformin 1 gm daily * (was previously on Lantus but reportedly stopped ~2 months ago) * A1c = 9.4 % 09/17/18 The patient is currently receiving: * An insulin drip that is on hold d/t BSGs below goal, previous rate was 1.1 units/hr Risk Factors for Insulin Resistance: * IVF: D51/2 NS + 20 K @ 200 cc/hr -> this was just d/c'd ~1030 * Diet: type 2 diabetes - Assessment & Plan Assessment & Plan: ASSESSMENT: * Mr. Zeng is a 42 y/o male admitted for alcoholism and pancreatitis. Was initiated on an insulin drip last evening for possible DKA. BSGs came down fairly quickly and insulin drip was on hold this AM for BSGs below goal. Labs are WNL so acceptable to transition to SQ at this point. Will initiate with less than weight based dosing d/t quick improvement in BSGs with low insulin drip rates. In addition, patient has not had po intake yet today and IVFs have been changed to LR. * Of note, outpatient compliance has been an issue. Patient was not a fan of insulin and this was stopped ~ 2 months ago when the provider switched back to metformin. There is concern with using this in alcoholism and patient is refusing insulin on discharge, so a sulfonylurea may be the next option. Will need to determine a plan before discharge. Of note, previous outpatient Lantus dosing was only 24 units daily. PLAN FOR INPATIENT GLYCEMIC CONTROL: * D/c insulin infusion - no overlap since drip has turned itself off * Continue to hold outpatient oral diabetes medications * Basal insulin * Lantus 10 units x 1 now, then * Lantus BID per the following scale: * Hold for BSG < 110 * 5 units for BSG 110-180 * 10 units for BSG > 180 * Bolus insulin * NovoLog per scale ACHS or Q6hrs while NPO * Goal Range: Low 110 mg/dL - High 140 mg/dL * Correction Factor: 20 mg/dL/unit * Nutritional / Prandial insulin per carb ratio of 1 unit per 8 grams CHO consumed * Please note that the plan above was derived based on current level of insulin resistance and hospital stress. These recommendations are appropriate for inpatient admission only. Plan of care upon discharge will need to be reassessed to avoid potential outpatient hypo/hyperglycemia. Thank you.
--- NOTE | 2018-09-17 11:26 | Hospitalist Progress Note ---
Date of Service September 17, 2018 Subjective 42-year-old male with past medical history significant for alcoholism and multiple admissions for alcoholism and pancreatitis, diabetes, seems to be noncompliant with insulin, history of alcoholic gastritis, GERD, mood disorder, history of PE as per records, chronic pain and history of narcotic abuse as per records, history of bipolar depression, ADHD status post suicide attempt presents with severe abdominal pain.The patient was here in the last week of March 2018 with the same issues and he did okay and he was discharged and he refused to go to rehab at that time and refused out patient endoscopic ultrasound for his pancreatitis at that time, but patient says since discharge, he has tried to quit drinking and he did not drink much, only here and there, but last weekend he was drinking heavily again, 12 pack of beers a day and last night he started to develop again severe abdominal pain. He could not sleep because of pain. The pain was in the epigastric area going band like to the back and it was sometimes depending on his position radiating to his chest and causing some shortness of breath. It was not getting better and he tried to eat food and it made the pain worse. As it was not getting better, he came to the ER today. Denies any fever, chills. No headache, no blurred visions, no sore throat, no cough. He says no blood in the stools, no black stools. Normal bowel and bladder movements. Lives with his mother. He was in alcohol rehab in the past. Requesting for pain medications. Assessment and Plan This 42-year-old male presents with alcoholism and abdominal pain, found to be possible pancreatitis. 1. Abdominal pain, possible pancreatitis and duodenitis. The CAT scan was almost similar to last CAT scan. History of chronic alcoholism. Lipase normal. We will treat with n.p.o., IV aggressive fluids, IV pain medications, IV antiemetics, and po Protonix b.i.d. and consult GI. The patient seems to have refused to follow with endoscopic ultrasound in the past admission. 2. Alcoholism, Was in rehab in 2000 and 2015. refused rehab last admission. We will place him on alcohol withdrawal protocol 3. Diabetic ketoacidosis. The patient has diabetes. Was On Lantus seems to be noncompliant. The last HbA1c was 8.7. He was on Lantus insulin sliding scale, but it seems like 3 weeks ago, he stopped Lantus and was back on metformin. He now comes with a serum glucose of 496 and anion gap of 20 and also bicarbonate 17. Alcoholism could also playing role here. We will place him on insulin DKA protocol and aggressive IV fluids. Labs as per DKA protocol. Pharmacy consult and diabetes teaching. Once improved, will change back to Lantus and sliding scale. 4. Pseudohyponatremia, mostly secondary to hyperglycemia. Present sodium of 128, but corrected sodium is 135. We will follow the labs. 5. Bipolar depression. Continue paroxetine. 6. Deep venous thrombosis prophylaxis, sequential compression devices and Lovenox. ROS-No Headache, No Visual Changes, No Nausea, No Vomiting, No Fever, No Chills , No Neck Pain or Stiffness, No Chest Pain, No Palpitations, No SOB, No TREJO, No Cough, No Sputum, No Wheezing, No Abdominal Pain, No Diarrhea, No Hematemesis, No Hemoptysis, No Unexpected Weight Loss, No Flank pain, No Melena, No Hematochezia, No Frequency, No Urgency, No Burning, No Hematuria, No Rashes, No Diaphoresis. Appetite is Normal Physical Exam Gen-AAO x 3, NAD, Afebrile Head-NCAT, EOMI, PERRLA, Anicteric Sclera, No Posterior Pharyngeal Erythema Neck-Supple, No JVD, No Thyromegaly, No Masses, No LAD, No Bruits Lungs-Clear to Auscultation Bilaterally, No Rales, No Rhonchi, No Wheezing, No Crepitus Chest-No S4, +S1, +S2, No S3, No Murmurs, No Rubs, No Gallops, No Ectopy Abdomen-Soft, Bowel Sounds Present, Tender, Non Distended, No Hepatomegaly, No Splenomegaly, No Palpable Masses, No Rebound, No Rigidity, No Guarding Musculoskeletal-Full Range of Motion Bilaterally, No CVAT Extremities-No Cyanosis, No Clubbing, No Edema Nuero-Cranial Nerves II-XII grossly intact, Motor WNL, DTRs WNL, Strength WNL, Non Focal Psych-Normal Mood 7. Disposition: Closely monitor in the med/surg tele, level 1 full code. Addendum: refusing Protonix and gabapentin. Does not want gabapentin as it worsens his restless legs. Started on Librium 25mg bid for alcohol withdrawal. Physical Exam 2 Vital Signs (Past 24 Hours): Last Vital Signs Temp 36.5 C 09/17/18 07:10 Pulse 66 09/17/18 08:00 Resp 18 09/17/18 07:10 BP 121/73 09/17/18 07:10 Pulse Ox 96 09/17/18 07:10 Results & Data Laboratory Results Allergies No Known Drug Allergies Allergy (Unknown, Verified 09/16/18 16:39) NONE Height/Weight/Isolation Height 6 ft Weight 94.7 kg Chemistry 09/16/18 09/16/18 09/17/18 17:05 21:56 01:37 Sodium 128 L 132 L 137 Potassium 3.5 3.7 3.9 Chloride 91 L 97 L 103 Carbon Dioxide 17 L 21 29 Anion Gap 20.0 H 13.0 H 5.0 BUN 16 14 13 Creatinine 1.40 1.09 1.02 Glucose 496 H* 331 H 194 H 09/17/18 09/17/18 05:03 09:54 Sodium 136 135 L Potassium 3.9 4.3 Chloride 104 102 Carbon Dioxide 30 28 Anion Gap 2.0 L 5.0 BUN 13 12 Creatinine 0.91 0.96 Glucose 151 H 221 H Urinalysis 09/16/18 17:15 Urine Color Yellow Urine Appearance Cloudy H Urine pH 5.0 Ur Specific [place] 1.032 H Urine Protein Negative Urine Glucose (UA) 3+ H Urine Ketones 1+ H Urine Blood Negative Urine Nitrite Negative Urine Bilirubin Negative
--- NOTE | 2018-09-17 11:54 | Gastrointestinal Consultation ---
Date of Consultation September 17, 2018 Assessment & Plan (1) History of substance abuse: Present on Admission?: No (2) Alcohol abuse: Present on Admission?: Yes (3) Pancreatitis: Pt is a 42 y/o male w hx of narcotic abuse, ongoing ETOH abuse who presented w RUQ abd pain radiating to back, associated w N/V. Hx of recurrent pancreatitis, but LFTs, and Lipase are normal. CT abd/pelvis showed pancreas atrophy and possible duodenitis but no signs of abscess or necrotic area, ductal dilation. - CL diet; advance as tolerated - IVF changed to LR @ 200mL/hr; may decrease and eventually heplock if tolerating PO intake well - Advised to stop ETOH use. I offered psych consult to help manage depression/ anxiety, see if any med adjustment can be made but he refused, said on therapy at [facility] - Watch for DTs - Avoid narcotics if possible - Symptomatic management otherwise. - EUS can be arranged in 4-6 week's time; though suspect pt may cancel or no show appt as he refused this before. - GI to sign off; call if new question/concerns arise. Present on Admission?: Yes Supervising Physician Co-Signing Physician Notes I saw and evaluated the patient. Gastroenterology is consulted with regard to abdominal pain and a question of pancreatitis. Of note the patient does drink alcohol very heavily. His lipase was normal upon admission however he does have CT evidence of inflammatory changes rounds pancreas. Given the patient's history I would wonder about chronic pancreatitis as an underlying Problem. Physical examination No obvious distress No scleral icterus Impression: Patient with history of abdominal discomfort likely related to chronic pancreatitis given his long history of alcohol abuse. I did discuss the role of alcohol cessation with the patient this afternoon. At this point we would recommend advancing the patient's diet as tolerated an outpatient follow up with our service as needed. The patient really needs to be abstinant from alcoholl before we can consider other assessments. I would suggest that a drug scarring be performed as well. History of Present Illness Reason for Consultation: Pancreatitis Requesting Physician: Jayesh Stone DO Attending Physician: Dr. Deborah Molina History of Present Illness Pt is a 42 y/o w PMHx ETOH and narcotic abuses, recurrent pancreatitis, diabetes w non compliance w insulin, GERD, depression and anxiety, ADHD, hx of suicide attempts who presented to ED w RUQ abd pain radiating to back associated w nausea, vomiting. Labs w/o leukocytosis, anemia, Lipase normal. CT abd/pelvis w IV contrast showed pancreatic glandular atrophy without pancreatic ductal dilatation is noted. There is apparent mild infiltration adjacent to the third portion the duodenum and the uncinate process of the pancreas. There is no peripancreatic fluid collection. He is s/p cholecystectomy He had pancreatitis on last admission, seen in March 2018. He refused EUS evaluation after his last pancreatitis episode. he continues to drink beer, citing depression and anxiety as triggers. He had gone to rehab for 40+ days last year. His last beer intake was 2 days ago, 8 beers. He chews tobacco, denies any other illicit drugs. Allergies Allergy/AdvReac Type Severity Reaction Status Date / Time No Known Drug Allergies Allergy Unknown NONE Verified 09/16/18 16:39 Home Medications Home Medications Medication Instructions Recorded Confirmed Type metformin 1,000 mg PO DAILY 09/16/18 09/16/18 History pantoprazole 40 mg PO DAILY 09/16/18 09/16/18 History paroxetine HCl 20 mg PO DAILY 09/16/18 09/16/18 History Patient History Medical History DM type 2 (diabetes mellitus, type 2) (Chronic) Renae's esophagus (Chronic Unknown) "per EGD 11/23/09 " On 05/31/11 09:06 Martinez Jose wrote "per EGD 11/23/09 " H/O acute pancreatitis (Chronic) "recurrent" Alcohol abuse (Chronic Unknown) History of substance abuse (Chronic) Depression (Chronic) Panic disorder (Chronic) Lumbar degenerative disc disease (Chronic) Suicidal ideation (Chronic) Mood disorder (Chronic) Suicide attempt (Resolved) Suicidal ideation (Resolved) Intentional drug overdose (Resolved) Mood disorder (Chronic) Depression (Chronic) Pulmonary embolism (Resolved) Abdominal pain Chest pain Hyperglycemia (Acute) Neuropathy (Acute) Surgical History H/O esophagogastroduodenoscopy (Chronic) "EGD 11/23/2009- mild gastritis, suspicious for gastroparesis, Z-line irregular EUS 02/04/2010- mild chronic pancreatitis, pronounced cholesterolosis of gallbladder, no biliary dilation or stones, probable gastroparesis EGD 10/31/2014- gastritis" Social History Current Living Situation: Parent Feels Safe at Home: Yes Safety Concerns: Feels Safe At This Time Smoking Status: Heavy tobacco smoker Do You Dip or Chew Tobacco: Yes Hx Alcohol Use: Yes Alcohol type: beer Alcohol Intake Frequency: a few times a week Hx Substance Use: No Beliefs That Will Affect Care: None Communication Ability: Effective Review of Systems Constitutional: as per Subjective / HPI Respiratory: no cough and no dyspnea Cardiovascular: no chest pain, no lightheadedness and no edema Gastrointestinal: + abdominal pain (RUQ abd pain ), + nausea and + vomiting Physical Exam 2 Vital Signs (Past 24 Hours): Last Vital Signs Temp 36.5 C 09/17/18 07:10 Pulse 66 09/17/18 08:00 Resp 18 09/17/18 07:10 BP 121/73 09/17/18 07:10 Pulse Ox 96 09/17/18 07:10 Constitutional: WD/WN, vitals as above well groomed, cooperative and comfortable Eyes: PERRL, conjunctivae normal, anicteric sclerae ENMT: external ear and nose normal, oropharynx normal Respiratory: normal respiratory effort, lungs clear to auscultation Cardiovascular: RRR, no murmur, no edema Gastrointestinal (Abdomen): Inspection/Auscultation: normal bowel sounds Percussion/Palpation: + abdomen tender (RUQ) and abdomen soft; no guarding Skin: no rashes, warm and dry no jaundice Neurologic: Motor/Sensory: no asterixis Psychiatric: A+Ox3, euthymic affect Lymphatic: no lymphedema Results & Data Laboratory Results Laboratory Results - last 48 hr 09/16/18 09/16/18 09/16/18 17:05 17:05 17:15 WBC 9.51 RBC 5.10 Hgb 17.1 Hct 46.4 MCV 91.0 MCH 33.5 MCHC 36.9 H RDW Std Deviation 41.1 RDW Coeff of Gucci 12.3 Plt Count 191 MPV 9.7 Immature Gran % (Auto) 0.1 Neut % (Auto) 77.5 Lymph % (Auto) 16.2 [place] % (Auto) 5.8 Eos % (Auto) 0.3 Baso % (Auto) 0.1 Immature Gran # (Auto) 0.01 Neut # (Auto) 7.37 H Lymph # (Auto) 1.54 [place] # (Auto) 0.55 Eos # (Auto) 0.03 Baso # (Auto) 0.01 PT INR Sodium 128 L Potassium 3.5 Chloride 91 L Carbon Dioxide 17 L Anion Gap 20.0 H BUN 16 Creatinine 1.40 Est Cr Clr Drug Dosing 80.9 Est GFR ( Amer) 70.3 Est GFR (Non-Af Amer) 60.7 BUN/Creatinine Ratio 11.5 Glucose 496 H* POC Glucose Estimat Average Glucose Hemoglobin A1c Calcium 9.6 Phosphorus Magnesium Total Bilirubin 0.6 Direct Bilirubin AST 17 ALT 25 Alkaline Phosphatase 104 Total Protein 8.8 H Albumin 4.1 Globulin 4.7 H Albumin/Globulin Ratio 0.9 Lipase 156 Vitamin B12 Folate Beta-Hydroxybutyric Acd 11.67 H Urine Color Yellow Urine Appearance Cloudy H Urine pH 5.0 Ur Specific [place] 1.032 H Urine Protein Negative Urine Glucose (UA) 3+ H Urine Ketones 1+ H Urine Blood Negative Urine Nitrite Negative Urine Bilirubin Negative Urine Urobilinogen Negative Ur Leukocyte Esterase Negative Urine WBC (Auto) 0 Urine RBC (Auto) 0-4 U Hyaline Cast (Auto) 1-5 U Epithel Cells (Auto) 0-5 Urine Bacteria (Auto) Negative 09/16/18 09/16/18 09/17/18 21:36 21:56 00:00 WBC RBC Hgb Hct MCV MCH MCHC RDW Std Deviation RDW Coeff of Gucci Plt Count MPV Immature Gran % (Auto) Neut % (Auto) Lymph % (Auto) [place] % (Auto) Eos % (Auto) Baso % (Auto) Immature Gran # (Auto) Neut # (Auto) Lymph # (Auto) [place] # (Auto) Eos # (Auto) Baso # (Auto) PT INR Sodium 132 L Potassium 3.7 Chloride 97 L Carbon Dioxide 21 Anion Gap 13.0 H BUN 14 Creatinine 1.09 Est Cr Clr Drug Dosing 103.9 Est GFR ( Amer) 95.2 Est GFR (Non-Af Amer) 82.1 BUN/Creatinine Ratio 13.0 Glucose 331 H POC Glucose 330 H 199 H Estimat Average Glucose Hemoglobin A1c Calcium 8.5 Phosphorus 2.4 L Magnesium 2.2 Total Bilirubin Direct Bilirubin AST ALT Alkaline Phosphatase Total Protein Albumin Globulin Albumin/Globulin Ratio Lipase Vitamin B12 Folate Beta-Hydroxybutyric Acd 11.90 H Urine Color Urine Appearance Urine pH Ur Specific [place] Urine Protein Urine Glucose (UA) Urine Ketones Urine Blood Urine Nitrite Urine Bilirubin Urine Urobilinogen Ur Leukocyte Esterase Urine WBC (Auto) Urine RBC (Auto) U Hyaline Cast (Auto) U Epithel Cells (Auto) Urine Bacteria (Auto) 09/17/18 09/17/18 09/17/18 01:37 01:52 02:49 WBC RBC Hgb Hct MCV MCH MCHC RDW Std Deviation RDW Coeff of Gucci Plt Count MPV Immature Gran % (Auto) Neut % (Auto) Lymph % (Auto) [place] % (Auto) Eos % (Auto) Baso % (Auto) Immature Gran # (Auto) Neut # (Auto) Lymph # (Auto) [place] # (Auto) Eos # (Auto) Baso # (Auto) PT INR Sodium 137 Potassium 3.9 Chloride 103 Carbon Dioxide 29 Anion Gap 5.0 BUN 13 Creatinine 1.02 Est Cr Clr Drug Dosing 111.1 Est GFR ( Amer) 103.1 Est GFR (Non-Af Amer) 89.0 BUN/Creatinine Ratio 12.8 Glucose 194 H POC Glucose 188 H 196 H Estimat Average Glucose Hemoglobin A1c Calcium 8.5 Phosphorus 1.8 L Magnesium 2.1 Total Bilirubin Direct Bilirubin AST ALT Alkaline Phosphatase Total Protein Albumin Globulin Albumin/Globulin Ratio Lipase Vitamin B12 Folate Beta-Hydroxybutyric Acd Urine Color Urine Appearance Urine pH Ur Specific [place] Urine Protein Urine Glucose (UA) Urine Ketones Urine Blood Urine Nitrite Urine Bilirubin Urine Urobilinogen Ur Leukocyte Esterase Urine WBC (Auto) Urine RBC (Auto) U Hyaline Cast (Auto) U Epithel Cells (Auto) Urine Bacteria (Auto) 09/17/18 09/17/18 09/17/18 03:50 05:03 05:03 WBC RBC Hgb Hct MCV MCH MCHC RDW Std Deviation RDW Coeff of Gucci Plt Count MPV Immature Gran % (Auto) Neut % (Auto) Lymph % (Auto) [place] % (Auto) Eos % (Auto) Baso % (Auto) Immature Gran # (Auto) Neut # (Auto) Lymph # (Auto) [place] # (Auto) Eos # (Auto) Baso # (Auto) PT INR Sodium Potassium Chloride Carbon Dioxide Anion Gap BUN Creatinine Est Cr Clr Drug Dosing Est GFR ( Amer) Est GFR (Non-Af Amer) BUN/Creatinine Ratio Glucose POC Glucose 177 H Estimat Average Glucose 223 Hemoglobin A1c 9.4 H Calcium Phosphorus Magnesium Total Bilirubin Direct Bilirubin AST ALT Alkaline Phosphatase Total Protein Albumin Globulin Albumin/Globulin Ratio Lipase Vitamin B12 1649 H Folate Cancelled Beta-Hydroxybutyric Acd Urine Color Urine Appearance Urine pH Ur Specific [place] Urine Protein Urine Glucose (UA) Urine Ketones Urine Blood Urine Nitrite Urine Bilirubin Urine Urobilinogen Ur Leukocyte Esterase Urine WBC (Auto) Urine RBC (Auto) U Hyaline Cast (Auto) U Epithel Cells (Auto) Urine Bacteria (Auto) 09/17/18 09/17/18 09/17/18 05:03 05:03 05:45 WBC RBC Hgb Hct MCV MCH MCHC RDW Std Deviation RDW Coeff of Gucci Plt Count MPV Immature Gran % (Auto) Neut % (Auto) Lymph % (Auto) [place] % (Auto) Eos % (Auto) Baso % (Auto) Immature Gran # (Auto) Neut # (Auto) Lymph # (Auto) [place] # (Auto) Eos # (Auto) Baso # (Auto) PT 11.4 INR 1.1 Sodium 136 Potassium 3.9 Chloride 104 Carbon Dioxide 30 Anion Gap 2.0 L BUN 13 Creatinine 0.91 Est Cr Clr Drug Dosing 124.5 Est GFR ( Amer) 118.4 Est GFR (Non-Af Amer) 102.1 BUN/Creatinine Ratio 14.5 Glucose 151 H POC Glucose 141 H Estimat Average Glucose Hemoglobin A1c Calcium 8.4 L Phosphorus 2.1 L Magnesium 2.2 Total Bilirubin Direct Bilirubin AST ALT Alkaline Phosphatase Total Protein Albumin Globulin Albumin/Globulin Ratio Lipase 79 Vitamin B12 Folate Beta-Hydroxybutyric Acd Urine Color Urine Appearance Urine pH Ur Specific [place] Urine Protein Urine Glucose (UA) Urine Ketones Urine Blood Urine Nitrite Urine Bilirubin Urine Urobilinogen Ur Leukocyte Esterase Urine WBC (Auto) Urine RBC (Auto) U Hyaline Cast (Auto) U Epithel Cells (Auto) Urine Bacteria (Auto) 09/17/18 09/17/18 09/17/18 06:49 07:48 07:54 WBC RBC Hgb Hct MCV MCH MCHC RDW Std Deviation RDW Coeff of Gucci Plt Count MPV Immature Gran % (Auto) Neut % (Auto) Lymph % (Auto) [place] % (Auto) Eos % (Auto) Baso % (Auto) Immature Gran # (Auto) Neut # (Auto) Lymph # (Auto) [place] # (Auto) Eos # (Auto) Baso # (Auto) PT INR Sodium Potassium Chloride Carbon Dioxide Anion Gap BUN Creatinine Est Cr Clr Drug Dosing Est GFR ( Amer) Est GFR (Non-Af Amer) BUN/Creatinine Ratio Glucose POC Glucose 159 H 121 H 109 H Estimat Average Glucose Hemoglobin A1c Calcium Phosphorus Magnesium Total Bilirubin Direct Bilirubin AST ALT Alkaline Phosphatase Total Protein Albumin Globulin Albumin/Globulin Ratio Lipase Vitamin B12 Folate Beta-Hydroxybutyric Acd Urine Color Urine Appearance Urine pH Ur Specific [place] Urine Protein Urine Glucose (UA) Urine Ketones Urine Blood Urine Nitrite Urine Bilirubin Urine Urobilinogen Ur Leukocyte Esterase Urine WBC (Auto) Urine RBC (Auto) U Hyaline Cast (Auto) U Epithel Cells (Auto) Urine Bacteria (Auto) 09/17/18 09/17/18 09/17/18 09:54 09:54 11:07 WBC RBC Hgb Hct MCV MCH MCHC RDW Std Deviation RDW Coeff of Gucci Plt Count MPV Immature Gran % (Auto) Neut % (Auto) Lymph % (Auto) [place] % (Auto) Eos % (Auto) Baso % (Auto) Immature Gran # (Auto) Neut # (Auto) Lymph # (Auto) [place] # (Auto) Eos # (Auto) Baso # (Auto) PT INR Sodium 135 L Potassium 4.3 Chloride 102 Carbon Dioxide 28 Anion Gap 5.0 BUN 12 Creatinine 0.96 Est Cr Clr Drug Dosing 117.3 Est GFR ( Amer) 111.0 Est GFR (Non-Af Amer) 95.7 BUN/Creatinine Ratio 13.0 Glucose 221 H POC Glucose 208 H Estimat Average Glucose Hemoglobin A1c Calcium 8.4 L Phosphorus 2.1 L Magnesium 2.0 Total Bilirubin Direct Bilirubin AST ALT Alkaline Phosphatase Total Protein Albumin Globulin Albumin/Globulin Ratio Lipase Vitamin B12 Folate 16.66 Beta-Hydroxybutyric Acd Urine Color Urine Appearance Urine pH Ur Specific [place] Urine Protein Urine Glucose (UA) Urine Ketones Urine Blood Urine Nitrite Urine Bilirubin Urine Urobilinogen Ur Leukocyte Esterase Urine WBC (Auto) Urine RBC (Auto) U Hyaline Cast (Auto) U Epithel Cells (Auto) Urine Bacteria (Auto) 09/17/18 12:10 WBC RBC Hgb Hct MCV MCH MCHC RDW Std Deviation RDW Coeff of Gucci Plt Count MPV Immature Gran % (Auto) Neut % (Auto) Lymph % (Auto) [place] % (Auto) Eos % (Auto) Baso % (Auto) Immature Gran # (Auto) Neut # (Auto) Lymph # (Auto) [place] # (Auto) Eos # (Auto) Baso # (Auto) PT INR Sodium 136 Potassium 3.7 Chloride 103 Carbon Dioxide 25 Anion Gap 8.0 BUN 12 Creatinine 0.93 Est Cr Clr Drug Dosing 121.1 Est GFR ( Amer) 115.3 Est GFR (Non-Af Amer) 99.5 BUN/Creatinine Ratio 12.4 Glucose 207 H POC Glucose Estimat Average Glucose Hemoglobin A1c Calcium 8.3 L Phosphorus 2.2 L Magnesium 2.2 Total Bilirubin 1.0 Direct Bilirubin 0.2 AST 21 ALT 34 Alkaline Phosphatase 96 Total Protein 6.6 D Albumin 3.1 L Globulin Albumin/Globulin Ratio Lipase Vitamin B12 Folate Beta-Hydroxybutyric Acd Urine Color Urine Appearance Urine pH Ur Specific [place] Urine Protein Urine Glucose (UA) Urine Ketones Urine Blood Urine Nitrite Urine Bilirubin Urine Urobilinogen Ur Leukocyte Esterase Urine WBC (Auto) Urine RBC (Auto) U Hyaline Cast (Auto) U Epithel Cells (Auto) Urine Bacteria (Auto) Diagnostic Findings CT abd/pelvis w contrast IMPRESSION: 1. Apparent subtle infiltration adjacent to the third portion of the duodenum and the uncinate process of the pancreas. This may be within normal limits however duodenitis or acute pancreatitis could appear similar. 2. No bowel obstruction. 3. Moderate distention of the bladder. 4. Pancreatic glandular atrophy _ (1) Pancreatitis Acute pancreatitis complication: Chronicity: chronic Pancreatitis type: alcohol induced Qualified Code(s): K86.0 - Alcohol-induced chronic pancreatitis
[2018-09-17 12:41] LABS: Albumin Level 3.1 gm/dl (3.4-5.0); BUN Creatinine Ratio 12.4 (10-20); Bilirubin Direct 0.2 mg/dl (0-0.2); Calcium 8.3 mg/dl (8.5-10.1); Creatinine Clr Calc Pharmacy 121.1 ml/min; Est GFR (African American) 115.3; Est GFR (Non-African American) 99.5; Magnesium 2.2 mg/dl (1.8-2.4); Potassium 3.7 mmol/L (3.5-5.1)
[2018-09-17 12:47] LABS: Phosphorus 2.2 mg/dl (2.5-4.9); Total Protein 6.6 gm/dl (6.4-8.2)
[2018-09-17] MEDS: HYDROmorphone INJ 2 MG/ML SYR/VIAL IV PRN ×4 (12:49→23:09)
[2018-09-17 18:21] LABS: BUN Creatinine Ratio 10.5 (10-20); Calcium 8.8 mg/dl (8.5-10.1); Creatinine Clr Calc Pharmacy 132.5 ml/min; Est GFR (African American) 122.8; Magnesium 2.2 mg/dl (1.8-2.4); Potassium 3.4 mmol/L (3.5-5.1)
[2018-09-17 18:22] LABS: Phosphorus 1.9 mg/dl (2.5-4.9)
[2018-09-17] MEDS: INSULIN GLARGINE SOLOSTAR 100 UNITS/ML 3 ML PEN SC SCH (20:40)
[2018-09-18] MEDS: LACTATED RINGER'S 1,000 ML IV SCH ×3 (00:34→16:13)
[2018-09-18] MEDS ORDERED: INSULIN ASPART 100 UNITS/ML 3 ML PEN SC ONE (02:00)
[2018-09-18] MEDS: HYDROmorphone INJ 2 MG/ML SYR/VIAL IV PRN ×8 (02:12→22:36)
[2018-09-18] MEDS: GABAPENTIN 600 MG TAB PO SCH ×3 (05:37→22:12)
[2018-09-18 06:31] LABS: Hematocrit (blood only) 40.2 % (42-52); Hemoglobin 14.4 g/dL (14.0-18.0); Mean Corpuscular Hgb Conc 35.8 g/dL (32-36); Mean Corpuscular Volume 92.8 fL (80-100); Mean Platelet Volume 9.6 fL (7.4-10.4); Platelet Count 128 K/uL (130-400); RDW Coefficient of Variation 12.4 % (11.5-14.5); RDW Standard Deviation 42.3 fL (36.4-46.3); Red Blood Count 4.33 M/uL (4.7-6.1); White Blood Count 6.38 K/uL (4.8-10.8)
[2018-09-18 06:59] LABS: Albumin Level 2.9 gm/dl (3.4-5.0); BUN Creatinine Ratio 7.3 (10-20); Calcium 8.6 mg/dl (8.5-10.1); Creatinine Clr Calc Pharmacy 131.2 ml/min; Est GFR (African American) 121.7; Potassium 3.3 mmol/L (3.5-5.1)
[2018-09-18 07:01] LABS: Albumin Globulin Ratio 0.9 (0.9-2); Bilirubin,Total 0.8 mg/dl (0.2-1); Globulin 3.3 gm/dl (2.5-4.0); Total Protein 6.2 gm/dl (6.4-8.2)
[2018-09-18] MEDS: POTASSIUM CHLORIDE 40 MEQ in SODIUM CHLORIDE 0.9% 1000ML 1,000 ML IV SCH ×2 (08:16→22:04)
[2018-09-18] MEDS: THIAMINE HCL 100 MG in SYRINGE 9 ML IV SCH (08:21)
[2018-09-18] MEDS: INSULIN ASPART 100 UNITS/ML 3 ML PEN SC SCH ×4 (08:23→20:48)
[2018-09-18] MEDS: INSULIN GLARGINE SOLOSTAR 100 UNITS/ML 3 ML PEN SC SCH ×2 (08:25→21:42)
--- NOTE | 2018-09-18 10:01 | History & Physical Bridge Note ---
Date of Service September 18, 2018 History & Physical Bridge Note Pt is a 42 y/o male w hx of narcotic abuse, ongoing ETOH abuse who presented w RUQ abd pain radiating to back, associated w N/V. Hx of recurrent pancreatitis, but LFTs, and Lipase are normal. CT abd/pelvis showed pancreas atrophy and possible duodenitis but no signs of abscess or necrotic area, ductal dilation. Labs, VS reviewed. I have examined the patient, reviewed the History & Physical and in the interval since the performance of the History & Physical I have noted the following changes of clinical significance: no changes noted Exam: - General: AAOx3, reports RUQ abd pain - Resp: CTA bilaterally, no respiratory distress - CV: HRR no murmur or gallops - Abdomen: Soft, TTP RUQ area, BS present - Extremities: No edema on extremities Pt had been made NPO for EGD today. GI will give further recs after EGD is completed. Supervising Physician Co-Signing Physician Notes I have seen and examined the patient with SHAWN Markham whose note reflects our findings and plan. EGD today to evaluate imaging finding of duodenitis. Pancreatitis. Continues to ask for pain meds.
--- NOTE | 2018-09-18 11:09 | Hospitalist Progress Note ---
Date of Service September 18, 2018 Assessment & Plan (1) Alcohol abuse: See Assessment and plan below (2) Pancreatitis: (3) Acute hyperglycemia: Subjective 42-year-old male with past medical history significant for alcoholism and multiple admissions for alcoholism and pancreatitis, diabetes, seems to be noncompliant with insulin, history of alcoholic gastritis, GERD, mood disorder, history of PE as per records, chronic pain and history of narcotic abuse as per records, history of bipolar depression, ADHD status post suicide attempt presents with severe abdominal pain.The patient was here in the last week of March 2018 with the same issues and he did okay and he was discharged and he refused to go to rehab at that time and refused out patient endoscopic ultrasound for his pancreatitis at that time, but patient says since discharge, he has tried to quit drinking and he did not drink much, only here and there, but last weekend he was drinking heavily again, 12 pack of beers a day and last night he started to develop again severe abdominal pain. He could not sleep because of pain. The pain was in the epigastric area going band like to the back and it was sometimes depending on his position radiating to his chest and causing some shortness of breath. It was not getting better and he tried to eat food and it made the pain worse. As it was not getting better, he came to the ER today. Denies any fever, chills. No headache, no blurred visions, no sore throat, no cough. He says no blood in the stools, no black stools. Normal bowel and bladder movements. Lives with his mother. He was in alcohol rehab in the past. Requesting for pain medications. Assessment and Plan This 42-year-old male presents with alcoholism and abdominal pain, found to be Duodenitis. 1. Abdominal pain se to duodenitis. The CT scan was almost similar to last CT scan. History of chronic alcoholism. Lipase normal. Continue IV fluids c 40 K, IV pain medications, IV antiemetics, and Protonix b.i.d. GI to scope today. 2. Alcoholism/RLS. Was in rehab in 2000 and 2015. refused rehab last admission. On alcohol withdrawal protocol, Does not want gabapentin as it worsens his restless legs. Started on Librium 25mg bid for alcohol withdrawal. 3. Diabetic ketoacidosis. The patient has diabetes. Was On Lantus seems to be noncompliant. The last HbA1c was 8.7. He was on Lantus insulin sliding scale, but it seems like 3 weeks ago, he stopped Lantus and was back on metformin. He now comes with a serum glucose of 496 and anion gap of 20 and also bicarbonate 17. Alcoholism could also playing role here. We will place him on insulin DKA protocol and aggressive IV fluids. Labs as per DKA protocol. Pharmacy consult and diabetes teaching. Once improved, will change back to Lantus and sliding scale. 4. Pseudohyponatremia, Resolved 5. Bipolar depression. Continue paroxetine. 6. Deep venous thrombosis prophylaxis, sequential compression devices and Lovenox. 7. Disposition: Closely monitor in the med/surg tele, level 1 full code. EGD today, avoid NSAIDS, PPI, T/C H2 Mars at hs ROS-No Headache, No Visual Changes, No Nausea, No Vomiting, No Fever, No Chills , No Neck Pain or Stiffness, No Chest Pain, No Palpitations, No SOB, No TREJO, No Cough, No Sputum, No Wheezing, + Abdominal Pain, No Diarrhea, No Hematemesis, No Hemoptysis, No Unexpected Weight Loss, No Flank pain, No Melena, No Hematochezia, No Frequency, No Urgency, No Burning, No Hematuria, No Rashes, No Diaphoresis. Appetite is Normal Physical Exam Gen-AAO x 3, NAD, Afebrile Head-NCAT, EOMI, PERRLA, Anicteric Sclera, No Posterior Pharyngeal Erythema Neck-Supple, No JVD, No Thyromegaly, No Masses, No LAD, No Bruits Lungs-Clear to Auscultation Bilaterally, No Rales, No Rhonchi, No Wheezing, No Crepitus Chest-No S4, +S1, +S2, No S3, No Murmurs, No Rubs, No Gallops, No Ectopy Abdomen-Soft, Bowel Sounds Present, Tender, Non Distended, No Hepatomegaly, No Splenomegaly, No Palpable Masses, No Rebound, No Rigidity, No Guarding Musculoskeletal-Full Range of Motion Bilaterally, No CVAT Extremities-No Cyanosis, No Clubbing, No Edema Nuero-Cranial Nerves II-XII grossly intact, Motor WNL, DTRs WNL, Strength WNL, Non Focal Psych-Normal Mood Physical Exam 2 Vital Signs (Past 24 Hours): Last Vital Signs Temp 36.5 C 09/18/18 07:30 Pulse 60 09/18/18 08:00 Resp 18 09/18/18 07:30 BP 106/62 09/18/18 07:30 Pulse Ox 96 09/18/18 07:30 Results & Data Laboratory Results Current Diagnoses Alcohol abuse, uncomplicated (09/16/18) Alcohol-induced chronic pancreatitis (09/16/18) Personal history of other specified conditions (09/16/18) Allergies No Known Drug Allergies Allergy (Unknown, Verified 09/16/18 16:39) NONE Height/Weight/Isolation Height 6 ft Weight 97.7 kg Chemistry 09/16/18 09/16/18 09/17/18 17:05 21:56 01:37 Sodium 128 L 132 L 137 Potassium 3.5 3.7 3.9 Chloride 91 L 97 L 103 Carbon Dioxide 17 L 21 29 Anion Gap 20.0 H 13.0 H 5.0 BUN 16 14 13 Creatinine 1.40 1.09 1.02 Glucose 496 H* 331 H 194 H 09/17/18 09/17/18 09/17/18 05:03 09:54 12:10 Sodium 136 135 L 136 Potassium 3.9 4.3 3.7 Chloride 104 102 103 Carbon Dioxide 30 28 25 Anion Gap 2.0 L 5.0 8.0 BUN 13 12 12 Creatinine 0.91 0.96 0.93 Glucose 151 H 221 H 207 H 09/17/18 09/18/18 17:46 05:51 Sodium 136 140 Potassium 3.4 L 3.3 L Chloride 105 105 Carbon Dioxide 27 29 Anion Gap 4.0 6.0 BUN 9 6 L Creatinine 0.85 0.87 Glucose 159 H 104 H Urinalysis 09/16/18 17:15 Urine Color Yellow Urine Appearance Cloudy H Urine pH 5.0 Ur Specific [place] 1.032 H Urine Protein Negative Urine Glucose (UA) 3+ H Urine Ketones 1+ H Urine Blood Negative Urine Nitrite Negative Urine Bilirubin Negative _ (1) Pancreatitis Acute pancreatitis complication: Chronicity: chronic Pancreatitis type: alcohol induced Qualified Code(s): K86.0 - Alcohol-induced chronic pancreatitis
--- NOTE | 2018-09-18 11:20 | Pharmacy Report ---
Pharmacy Glycemic Short Note 2 - Date of Service September 18, 2018 - Glycemic Short BSG Results (Last 24 hours): 09/17/18 09/17/18 09/17/18 11:07 12:10 16:28 Glucose 207 H POC Glucose 208 H 167 H 09/17/18 09/17/18 09/18/18 17:46 20:38 02:03 Glucose 159 H POC Glucose 181 H 106 H 09/18/18 09/18/18 05:51 07:29 Glucose 104 H POC Glucose 127 H OUTPATIENT ANTIDIABETIC REGIMEN: * Metformin 1 gm daily * (was previously on Lantus but reportedly stopped ~2 months ago) * A1c = 9.4 % 09/17/18 ASSESSMENT: 09/18/18 * Mr. Zeng received 26 units of SQ insulin yesterday after being transitioned off the insulin drip. 20 of this being basal. * He is currently NPO for an EGD today * Fasting BSG = 104 mg/dL; will decrease basal slightly to prevent hypoglycemia 09/17/18 * Mr. Zeng is a 42 y/o male admitted for alcoholism and pancreatitis. Was initiated on an insulin drip last evening for possible DKA. BSGs came down fairly quickly and insulin drip was on hold this AM for BSGs below goal. Labs are WNL so acceptable to transition to SQ at this point. Will initiate with less than weight based dosing d/t quick improvement in BSGs with low insulin drip rates. In addition, patient has not had po intake yet today and IVFs have been changed to LR. * Of note, outpatient compliance has been an issue. Patient was not a fan of insulin and this was stopped ~ 2 months ago when the provider switched back to metformin. There is concern with using this in alcoholism and patient is refusing insulin on discharge, so a sulfonylurea may be the next option. Will need to determine a plan before discharge. Of note, previous outpatient Lantus dosing was only 24 units daily. PLAN FOR INPATIENT GLYCEMIC CONTROL: * Continue to hold outpatient oral diabetes medications * Basal insulin - decrease to 8 units BID for BSG in range * Lantus SQ BID per the following scale: * 5 units for BSG < 110 * 8 units for BSG 110-180 * 10 units for BSG > 180 * Bolus insulin - loosen CF to stress level of 2 from insulin calculator * NovoLog per scale ACHS or Q6hrs while NPO * Goal Range: Low 110 mg/dL - High 140 mg/dL * Correction Factor: 25 mg/dL/unit * Nutritional / Prandial insulin per carb ratio of 1 unit per 8 grams CHO consumed PLAN FOR DISCHARGE: * Patient is refusing insulin on discharge * Recommend trialing initial doses of glimepiride 2 mg daily or glipizide 2.5 mg daily
--- NOTE | 2018-09-18 11:50 | Anesthesiology Consultation ---
Date of Service September 18, 2018 Assessment & Plan (1) Encounter for pre-operative examination: Chart Review Chart Review: Acceptable Risk for Surgery and Patient NOT seen in Pre Admission Testing Consults Requested none ASA ASA3 NPO Date Last Intake of Fluids: 09/18/18 Time Last Intake of Fluids: 00:00 Last Intake of Solids Comment: was on a clear liquid diet 09/17 & NPO on 09/16 when admitted History Surgery Operation Date: 09/18/18 08:25 Proposed Procedures p Esophagogastroduodenoscopy Dr Banegas - Margaret Banegas Height/Weight Height: 6 ft Weight: 97.7 kg Allergies Allergy/AdvReac Type Severity Reaction Status Date / Time No Known Drug Allergies Allergy Unknown NONE Verified 09/16/18 16:39 Medications Home Medications Medication Instructions Recorded Confirmed Last Taken metformin 1,000 mg PO DAILY 09/16/18 09/16/18 Unknown pantoprazole 40 mg PO DAILY 09/16/18 09/16/18 Unknown paroxetine HCl 20 mg PO DAILY 09/16/18 09/16/18 Unknown Active Medications Generic Name Dose Route Start Last Admin Trade Name Freq PRN Reason Stop Dose Admin Acetaminophen 650 mg 09/16/18 21:46 09/17/18 04:00 Tylenol PO 10/16/18 21:45 650 mg Q4H PRN Administration Pain or Fever Chlordiazepoxide HCl 25 mg 09/17/18 09:00 09/17/18 20:41 Librium PO 10/17/18 08:59 25 mg BID RAMOS Administration Enoxaparin Sodium 40 mg 09/17/18 09:00 09/17/18 09:26 Lovenox SQ 10/17/18 08:59 Not Given Q24H RAMOS Folic Acid 1 mg 09/17/18 09:00 09/17/18 09:25 Folvite PO 10/17/18 08:59 1 mg QAM RAMOS Administration Gabapentin 600 mg 09/17/18 22:00 09/18/18 05:37 Neurontin PO 09/18/18 14:01 Not Given Q8H RAMOS Hydromorphone HCl 2 mg 09/18/18 07:58 09/18/18 08:17 Dilaudid IV 10/01/18 12:29 2 mg Q2H PRN Administration Pain Thiamine HCl 100 mg/ Syringe 10 mls @ 2 mls/hr 09/17/18 09:00 09/18/18 08:21 IV 10/17/18 08:59 2 mls/hr Q24H RAMOS Administration Protocol Lactated Ringer's 1,000 mls @ 200 mls/hr 09/17/18 10:30 09/18/18 05:36 Lr IV 10/17/18 10:29 200 mls/hr .Q5H RAMOS Administration Potassium Chloride 40 meq/ 1,020 mls @ 15 mls/hr 09/18/18 07:15 09/18/18 08: 16 Sodium Chloride IV 10/18/18 16:00 15 mls/hr .Q24H RAMOS Administration Insulin Aspart 0 units 09/17/18 08:30 09/18/18 08:23 Novolog Flexpen SC 10/17/18 08:29 Not Given ACHS RAMOS Protocol Insulin Glargine 0 units 09/17/18 21:00 09/18/18 08:25 Lantus Solostar Pen SC 10/17/18 20:59 Not Given BID RAMOS Protocol Multivitamins/Minerals 1 tab 09/17/18 09:00 09/17/18 09:37 Multivitamin W/ Minerals Tab PO 10/17/18 08:59 Not Given QAM RAMOS Pantoprazole Sodium 40 mg 09/17/18 09:50 09/17/18 20:41 Protonix PO 10/17/18 09:49 40 mg BID RAMOS Administration Paroxetine HCl 20 mg 09/17/18 09:00 09/17/18 09:25 Paxil PO 10/17/18 08:59 20 mg DAILY RAMOS Administration Past Medical History Medical History DM type 2 (diabetes mellitus, type 2) (Chronic) Renae's esophagus (Chronic Unknown) "per EGD 11/23/09 " On 05/31/11 09:06 Martinez Jose wrote "per EGD 11/23/09 " H/O acute pancreatitis (Chronic) "recurrent" Alcohol abuse (Chronic Unknown) History of substance abuse (Chronic) Depression (Chronic) Panic disorder (Chronic) Lumbar degenerative disc disease (Chronic) Suicidal ideation (Chronic) Mood disorder (Chronic) Suicide attempt (Resolved) Suicidal ideation (Resolved) Intentional drug overdose (Resolved) Mood disorder (Chronic) Depression (Chronic) Pulmonary embolism (Resolved) Abdominal pain Chest pain Hyperglycemia (Acute) Neuropathy (Acute) Past Surgical History Surgical History H/O esophagogastroduodenoscopy (Chronic) "EGD 11/23/2009- mild gastritis, suspicious for gastroparesis, Z-line irregular EUS 02/04/2010- mild chronic pancreatitis, pronounced cholesterolosis of gallbladder, no biliary dilation or stones, probable gastroparesis EGD 10/31/2014- gastritis" Social History Smoking Status: Heavy tobacco smoker Do You Dip or Chew Tobacco: Yes Hx Alcohol Use: Yes Alcohol type: beer alcohol intake frequency: a few times a week Hx Substance Use: No Physical Exam Vital Signs Last Vital Signs Temp 36.4 C L 09/18/18 11:43 Pulse 71 09/18/18 11:43 Resp 18 09/18/18 11:43 BP 116/70 09/18/18 11:43 Pulse Ox 97 09/18/18 11:43 Testing Laboratory Results 09/18/18 05:51 09/18/18 05:51 PT 11.4 Seconds (9.0-12.0) 09/17/18 05:03 INR 1.1 (0.9-1.1) 09/17/18 05:03 Hemoglobin A1c 9.4 % (4.5-5.6) H 09/17/18 05:03 Urine Color Yellow 09/16/18 17:15 Urine Appearance Cloudy (Clear) H 09/16/18 17:15 Urine pH 5.0 (4.5-7.5) 09/16/18 17:15 Ur Specific [place] 1.032 (1.000-1.030) H 09/16/18 17:15 Urine Protein Negative (Negative) 09/16/18 17:15 Urine Glucose (UA) 3+ (Negative) H 09/16/18 17:15 Urine Ketones 1+ (Negative) H 09/16/18 17:15 Urine Nitrite Negative (Negative) 09/16/18 17:15 Ur Leukocyte Esterase Negative (Negative) 09/16/18 17:15 Urine WBC (Auto) 0 /hpf (0-5) 09/16/18 17:15 Urine RBC (Auto) 0-4 /hpf (0-4) 09/16/18 17:15 U Hyaline Cast (Auto) 1-5 /lpf (0-5) 09/16/18 17:15 U Epithel Cells (Auto) 0-5 /lpf (0-5) 09/16/18 17:15 Urine Bacteria (Auto) Negative (Negative) 09/16/18 17:15 09/18/18 09/18/18 07:29 02:03 POC Glucose 127 H 106 H
[2018-09-18] MEDS ORDERED: ATROPINE SULFATE 0.1 MG/ML 10ML SYR IV PRN ×2 (11:58→12:07)
[2018-09-18] MEDS ORDERED: ePHEDrine sulfate 50 MG/ML AMP IV PRN ×2 (11:58→12:07)
[2018-09-18] MEDS ORDERED: MIDAZOLAM HCL 1 MG/ML 2ML VIAL ONE (12:59)
[2018-09-18] MEDS ORDERED: KETAMINE HCL INJ 50 MG/ML 10 ML VIAL ONE (13:00)
--- NOTE | 2018-09-18 13:18 | GI REPORT ---
Patient Name: Raffi Zeng Procedure Date: 09/18/2018 12:55 PM Date of : 1975 Admit Type: Inpatient Age: 42 Gender: Male Attending MD: Margaret Banegas DO Procedure: Upper GI endoscopy Providers: Margaret Banegas DO Referring MD: Jayesh Stone Do Indications: Abnormal CT of the GI tract Medicines: Propofol per Anesthesia Complications: No immediate complications. Estimated blood loss: None. Estimated Blood Loss: Estimated blood loss: none. Procedure: Pre-Anesthesia Assessment: - Prior to the procedure, a History and Physical was performed, and patient medications, allergies and sensitivities were reviewed. The patient's tolerance of previous anesthesia was reviewed. - The risks and benefits of the procedure and the sedation options and risks were discussed with the patient. All questions were answered and informed consent was obtained. - Patient identification and proposed procedure were verified prior to the procedure by the physician and the nurse. The procedure was verified in the pre-procedure area in the procedure room. - Mental Status Examination: alert and oriented. Airway Examination: normal oropharyngeal airway and neck mobility. Respiratory Examination: clear to auscultation. CV Examination: normal. Abdominal Examination: bowel sounds present, abdomen soft and non-tender, no masses or organomegaly noted. - ASA Grade Assessment: II - A patient with mild systemic disease. After obtaining informed consent, the endoscope was passed under direct vision. Throughout the procedure, the patient's blood pressure, pulse, and oxygen saturations were monitored continuously. The Endoscope was introduced through the mouth, and advanced to the second part of duodenum. The upper GI endoscopy was accomplished without difficulty. The patient tolerated the procedure well. Findings: The esophagus was normal. Mild inflammation characterized by erythema was found in the entire examined stomach. Mildly erythematous mucosa without active bleeding and with no stigmata of bleeding was found in the entire duodenum. Impression: - Normal esophagus. - Mild gastritis. - Mild erythema in the duodenum. - No specimens collected. Recommendation: - Daily PPI. - Supportive care for pancreatitis. - Stop drinking alcohol. - [facility]. Gabby Junior DO 09/18/2018 1:18:14 PM This report has been signed electronically. Note Initiated On: 09/18/2018 12:55 PM Number of Addenda: 0 I attest to the content of the Intraoperative Record and orders documented therein, exceptions below {[id number]}
[2018-09-18] MEDS ORDERED: GLYCOPYRROLATE 0.2 MG/ML VIAL ONE (13:25)
[2018-09-18] MEDS ORDERED: PROPOFOL IV EMULSION 10 MG/ML 20 ML VIAL IV ONE (13:25)
[2018-09-18] MEDS ORDERED: LIDOCAINE HCL 2% 2 ML VIAL/AMP(20MG/ML) INFIL ONE (13:25)
--- NOTE | 2018-09-18 13:42 | Anesthesiology Progress Note ---
Date of Service September 18, 2018 Anesthesia Post Procedure Vital Signs Vital Signs: Temp Pulse Pulse Resp BP Pulse Ox 09/18/18 11:55 36.5 C 70 20 125/88 97 09/18/18 11:43 36.4 C L 71 18 116/70 97 09/18/18 08:00 60 09/18/18 07:30 36.5 C 70 18 106/62 96 09/18/18 04:00 36.6 C 62 18 119/72 97 09/18/18 00:49 62 09/18/18 00:00 36.8 C 71 18 144/73 H 96 09/17/18 20:22 36.7 C 74 20 128/67 92 09/17/18 16:24 36.6 C 78 18 102/61 95 09/17/18 16:00 79 Pain Intensity Right Abdomen: Pain Intensity: 7 Notes Mental Status: alert / awake / arousable Patient Amnestic to Procedure: Yes Nausea / Vomiting: adequately controlled Pain: adequately controlled Airway Patency, RR, SpO2: stable & adequate BP & HR: stable & adequate Hydration State: stable & adequate Anesthetic Complications: no major complications apparent and Pt Satisfied with anesthetic care
[2018-09-18] MEDS: CEROVITE ADV FORMULA TAB PO SCH (14:18)
[2018-09-18] MEDS: FOLIC ACID 1 MG TAB PO SCH (14:18)
[2018-09-18] MEDS: PARoxetine HCl 20 MG TAB PO SCH (14:19)
[2018-09-18] MEDS: ENOXAPARIN INJ 40 MG/0.4 ML SYR SQ SCH (14:19)
[2018-09-18] MEDS: PANTOprazole 40 MG TAB PO SCH ×2 (14:20→21:43)
[2018-09-18] MEDS: chlordiazePOXIDE HCl 25 MG CAP PO SCH ×2 (14:25→21:42)
[2018-09-18] MEDS ORDERED: FAMOTIDINE 20 MG in SYRINGE 3 ML IV SCH (21:00)
[2018-09-18] MEDS ORDERED: FAMOTIDINE 20MG/5ML IV PUSH IV SCH (21:00)
[2018-09-19] MEDS: HYDROmorphone INJ 2 MG/ML SYR/VIAL IV PRN ×11 (00:27→22:11)
[2018-09-19] MEDS: ONDANSETRON INJ 2 MG/ML 2 ML VIAL IV PRN ×2 (04:35→18:07)
[2018-09-19] MEDS: POTASSIUM CHLORIDE 40 MEQ in SODIUM CHLORIDE 0.9% 1000ML 1,000 ML IV SCH ×2 (06:50→15:53)
--- NOTE | 2018-09-19 07:40 | Hospitalist Progress Note ---
Date of Service September 19, 2018 Subjective 42-year-old male with past medical history significant for alcoholism and multiple admissions for alcoholism and pancreatitis, diabetes, seems to be noncompliant with insulin, history of alcoholic gastritis, GERD, mood disorder, history of PE as per records, chronic pain and history of narcotic abuse as per records, history of bipolar depression, ADHD status post suicide attempt presents with severe abdominal pain.The patient was here in the last week of March 2018 with the same issues and he did okay and he was discharged and he refused to go to rehab at that time and refused out patient endoscopic ultrasound for his pancreatitis at that time, but patient says since discharge, he has tried to quit drinking and he did not drink much, only here and there, but last weekend he was drinking heavily again, 12 pack of beers a day and last night he started to develop again severe abdominal pain. He could not sleep because of pain. The pain was in the epigastric area going band like to the back and it was sometimes depending on his position radiating to his chest and causing some shortness of breath. It was not getting better and he tried to eat food and it made the pain worse. As it was not getting better, he came to the ER today. Denies any fever, chills. No headache, no blurred visions, no sore throat, no cough. He says no blood in the stools, no black stools. Normal bowel and bladder movements. Lives with his mother. He was in alcohol rehab in the past. Requesting for pain medications. Assessment and Plan This 42-year-old male presents with alcoholism and abdominal pain, found to be Duodenitis. 1. Abdominal pain se to duodenitis. The CT scan was almost similar to last CT scan. History of chronic alcoholism. Lipase normal. Continue IV fluids c 40 K, IV pain medications, IV antiemetics, and Protonix b.i.d. GI to scope today. 2. Alcoholism/RLS. Was in rehab in 2000 and 2015. refused rehab last admission. On alcohol withdrawal protocol, Does not want gabapentin as it worsens his restless legs. Started on Librium 25mg bid for alcohol withdrawal. 3. Diabetic ketoacidosis. The patient has diabetes. Was On Lantus seems to be noncompliant. The last HbA1c was 8.7. He was on Lantus insulin sliding scale, but it seems like 3 weeks ago, he stopped Lantus and was back on metformin. He now comes with a serum glucose of 496 and anion gap of 20 and also bicarbonate 17. Alcoholism could also playing role here. We will place him on insulin DKA protocol and aggressive IV fluids. Labs as per DKA protocol. Pharmacy consult and diabetes teaching. Once improved, will change back to Lantus and sliding scale. 4. Pseudohyponatremia, Resolved 5. Bipolar depression. Continue paroxetine. 6. Deep venous thrombosis prophylaxis, sequential compression devices and Lovenox. 7. Disposition: Closely monitor in the med/surg tele, level 1 full code. EGD yesterday 09/18-- Normal esophagus. Mild gastritis. Mild erythema in the duodenum. Avoid alcohol and NSAIDS, PPI, H2 Mars at HS, add Carafate, GI Cocktail, Clears, CT Abd for persistent LUQ Pain. ROS-No Headache, No Visual Changes, No Nausea, No Vomiting, No Fever, No Chills , No Neck Pain or Stiffness, No Chest Pain, No Palpitations, No SOB, No TREJO, No Cough, No Sputum, No Wheezing, +Abdominal Pain, No Diarrhea, No Hematemesis, No Hemoptysis, No Unexpected Weight Loss, No Flank pain, No Melena, No Hematochezia , No Frequency, No Urgency, No Burning, No Hematuria, No Rashes, No Diaphoresis. Appetite is decreased Physical Exam Gen-AAO x 3, NAD, Afebrile Head-NCAT, EOMI, PERRLA, Anicteric Sclera, No Posterior Pharyngeal Erythema Neck-Supple, No JVD, No Thyromegaly, No Masses, No LAD, No Bruits Lungs-Clear to Auscultation Bilaterally, No Rales, No Rhonchi, No Wheezing, No Crepitus Chest-No S4, +S1, +S2, No S3, No Murmurs, No Rubs, No Gallops, No Ectopy Abdomen-Soft, Bowel Sounds Present, Tender, Non Distended, No Hepatomegaly, No Splenomegaly, No Palpable Masses, No Rebound, No Rigidity, No Guarding Musculoskeletal-Full Range of Motion Bilaterally, No CVAT Extremities-No Cyanosis, No Clubbing, No Edema Nuero-Cranial Nerves II-XII grossly intact, Motor WNL, DTRs WNL, Strength WNL, Non Focal Psych-Normal Mood Physical Exam 2 Vital Signs (Past 24 Hours): Last Vital Signs Temp 36.4 C L 09/19/18 07:06 Pulse 92 H 09/19/18 07:06 Resp 20 09/19/18 07:06 BP 135/83 09/19/18 07:06 Pulse Ox 95 09/19/18 07:06 Results & Data Laboratory Results Current Diagnoses Alcohol abuse, uncomplicated (09/16/18) Alcohol-induced chronic pancreatitis (09/16/18) Hyperglycemia, unspecified (09/16/18) Encounter for other preprocedural examination (09/16/18) Personal history of other specified conditions (09/16/18) Allergies No Known Drug Allergies Allergy (Unknown, Verified 09/16/18 16:39) NONE Height/Weight/Isolation Height 6 ft Weight 98.2 kg Chemistry 09/17/18 09/17/18 09/17/18 09:54 12:10 17:46 Sodium 135 L 136 136 Potassium 4.3 3.7 3.4 L Chloride 102 103 105 Carbon Dioxide 28 25 27 Anion Gap 5.0 8.0 4.0 BUN 12 12 9 Creatinine 0.96 0.93 0.85 Glucose 221 H 207 H 159 H 09/18/18 05:51 Sodium 140 Potassium 3.3 L Chloride 105 Carbon Dioxide 29 Anion Gap 6.0 BUN 6 L Creatinine 0.87 Glucose 104 H
[2018-09-19] MEDS ORDERED: ALUMINUM/MAGNESIUM SUSP 72 ML, LIDOCAINE HCL VISCOUS 2% 24 ML, BARCODE IDENTIFIER 1 EA PO PRN (07:47)
[2018-09-19 08:09] LABS: Hematocrit (blood only) 43.9 % (42-52); Hemoglobin 15.5 g/dL (14.0-18.0); Mean Corpuscular Hgb Conc 35.3 g/dL (32-36); Mean Corpuscular Volume 93.6 fL (80-100); Mean Platelet Volume 9.4 fL (7.4-10.4); Platelet Count 135 K/uL (130-400); RDW Coefficient of Variation 12.5 % (11.5-14.5); RDW Standard Deviation 42.6 fL (36.4-46.3); Red Blood Count 4.69 M/uL (4.7-6.1); White Blood Count 5.45 K/uL (4.8-10.8)
[2018-09-19] MEDS: CEROVITE ADV FORMULA TAB PO SCH (08:20)
[2018-09-19] MEDS: FOLIC ACID 1 MG TAB PO SCH (08:20)
[2018-09-19] MEDS: ENOXAPARIN INJ 40 MG/0.4 ML SYR SQ SCH (08:20)
[2018-09-19] MEDS: PARoxetine HCl 20 MG TAB PO SCH (08:22)
[2018-09-19] MEDS: PANTOprazole 40 MG TAB PO SCH ×2 (08:22→20:39)
[2018-09-19] MEDS: INSULIN GLARGINE SOLOSTAR 100 UNITS/ML 3 ML PEN SC SCH ×2 (08:23→20:38)
[2018-09-19] MEDS: INSULIN ASPART 100 UNITS/ML 3 ML PEN SC SCH ×4 (08:23→20:32)
[2018-09-19] MEDS: THIAMINE HCL 100 MG in SYRINGE 9 ML IV SCH (08:23)
[2018-09-19] MEDS: chlordiazePOXIDE HCl 25 MG CAP PO SCH ×2 (08:27→20:38)
[2018-09-19 08:37] LABS: Albumin Level 3.2 gm/dl (3.4-5.0); Calcium 9.1 mg/dl (8.5-10.1); Creatinine Clr Calc Pharmacy 116.8 ml/min; Est GFR (African American) 108.2; Est GFR (Non-African American) 93.4; Magnesium 2.2 mg/dl (1.8-2.4); Potassium 3.7 mmol/L (3.5-5.1)
[2018-09-19 08:46] LABS: Albumin Globulin Ratio 0.9 (0.9-2); Bilirubin,Total 0.7 mg/dl (0.2-1); Globulin 3.7 gm/dl (2.5-4.0); Phosphorus 3.5 mg/dl (2.5-4.9); Total Protein 6.9 gm/dl (6.4-8.2)
[2018-09-19] MEDS: SUCRALFATE 1 GM/10 ML UDC PO SCH ×4 (08:49→20:38)
[2018-09-19] MEDS ORDERED: IOVERSOL 100ml IV PRN (10:01)
--- NOTE | 2018-09-19 10:16 | CT Scan Report ---
CT abdomen oral and IV con CT DOSE: 368.63 mGy.cm CLINICAL HISTORY: Right upper quadrant abdominal pain TECHNIQUE: Images the upper abdomen performed following administration of dilute oral contrast, and i n a dynamic helical fashion during intravenous administration of 93 cc of Optiray 320. A dose loweri ng technique was utilized adhering to the principles of ALARA. COMPARISON STUDY: Noncontrast study dated 09/16/2018 FINDINGS: The visualized portions of the lung bases are unremarkable. No pleural effusions are visualized. There are stable lobulated low density structures at the level of the right cardiophrenic angle. The finding remains unchanged from March 2015 and likely represents a pericardial cyst. No hepatic masses are visualized. The gallbladder is surgically absent. No splenic masses are visualized. The pancreas appears somewhat atrophic. No pancreatic masses are visualized. There are no adrenal masses. There are no solid renal masses. There is no hydronephrosis. There is no evidence of abdominal aortic dilatation. There is no evidence for pathologic adenopathy. Left upper quadrant varices are again evident. There is a tiny fat-containing umbilical hernia. There is a small anterior abdominal wall lipoma suha cent to the umbilicus to the right of midline There are postsurgical changes present within the spine IMPRESSION: 1. Stable right sided pericardial cyst 2. Stable left upper quadrant varices 3. Stable pancreatic glandular atrophy 4. No evidence of pathologic adenopathy. 5. No evidence of hydronephrosis. 6. No peripancreatic fluid collections identified Electronically signed by: Cheng Diaz M.D. 09/19/2018 10:14 AM
[2018-09-19] MEDS: GABAPENTIN 600 MG TAB PO SCH (12:00)
--- NOTE | 2018-09-19 12:58 | Pharmacy Report ---
Pharmacy Glycemic Short Note 2 - Date of Service September 19, 2018 - Glycemic Short BSG Results (Last 24 hours): 09/18/18 09/18/18 09/18/18 14:28 16:40 20:22 Glucose POC Glucose 103 H 113 H 118 H 09/19/18 09/19/18 09/19/18 07:38 07:56 11:42 Glucose 171 H POC Glucose 173 H 92 OUTPATIENT ANTIDIABETIC REGIMEN: * Metformin 1 gm daily * (was previously on Lantus but reportedly stopped ~2 months ago) * A1c = 9.4 % 09/17/18 ASSESSMENT: 09/19/18 * Mr. Zeng received only 8 units of insulin yesterday, was NPO for the whole day * Diet has been advanced today but po intake remains minimal * Daily basal amounts received thus far: 09/17 20 units, 09/18 8 units * Fasting BSG = 173 mg/dL; anticipating basal needs to be ~15 units * Postprandial BSGs on the lower side; will adjust Novolog parameters to be less aggressive 09/18/18 * Mr. Zeng received 26 units of SQ insulin yesterday after being transitioned off the insulin drip. 20 of this being basal. * He is currently NPO for an EGD today * Fasting BSG = 104 mg/dL; will decrease basal slightly to prevent hypoglycemia 09/17/18 * Mr. Zeng is a 42 y/o male admitted for alcoholism and pancreatitis. Was initiated on an insulin drip last evening for possible DKA. BSGs came down fairly quickly and insulin drip was on hold this AM for BSGs below goal. Labs are WNL so acceptable to transition to SQ at this point. Will initiate with less than weight based dosing d/t quick improvement in BSGs with low insulin drip rates. In addition, patient has not had po intake yet today and IVFs have been changed to LR. * Of note, outpatient compliance has been an issue. Patient was not a fan of insulin and this was stopped ~ 2 months ago when the provider switched back to metformin. There is concern with using this in alcoholism and patient is refusing insulin on discharge, so a sulfonylurea may be the next option. Will need to determine a plan before discharge. Of note, previous outpatient Lantus dosing was only 24 units daily. PLAN FOR INPATIENT GLYCEMIC CONTROL: * Continue to hold outpatient oral diabetes medications * Basal insulin - decrease to 14 units of basal for BSG in goal range * Lantus SQ BID per the following scale: * Hold for BSG < 110 * 7 units for BSG 110-180 * 10 units for BSG > 180 * Bolus insulin - loosen CF/CR * NovoLog per scale ACHS or Q6hrs while NPO * Goal Range: Low 110 mg/dL - High 140 mg/dL * Correction Factor: 30 mg/dL/unit * Nutritional / Prandial insulin per carb ratio of 1 unit per 10 grams CHO consumed PLAN FOR DISCHARGE: * Patient is refusing insulin on discharge * Recommend trialing initial doses of glimepiride 2 mg daily or glipizide 2.5 mg daily
[2018-09-19] MEDS: FAMOTIDINE 20 MG TAB PO SCH (20:42)
[2018-09-20] MEDS: POTASSIUM CHLORIDE 40 MEQ in SODIUM CHLORIDE 0.9% 1000ML 1,000 ML IV SCH ×4 (00:27→23:32)
[2018-09-20] MEDS: HYDROmorphone INJ 2 MG/ML SYR/VIAL IV PRN ×12 (00:45→23:32)
[2018-09-20] MEDS: ONDANSETRON INJ 2 MG/ML 2 ML VIAL IV PRN ×2 (00:52→23:32)
[2018-09-20 06:58] LABS: Hematocrit (blood only) 40.5 % (42-52); Hemoglobin 14.2 g/dL (14.0-18.0); Mean Corpuscular Hgb Conc 35.1 g/dL (32-36); Mean Corpuscular Volume 93.8 fL (80-100); Mean Platelet Volume 9.5 fL (7.4-10.4); Platelet Count 131 K/uL (130-400); RDW Coefficient of Variation 12.2 % (11.5-14.5); RDW Standard Deviation 41.8 fL (36.4-46.3); Red Blood Count 4.32 M/uL (4.7-6.1); White Blood Count 4.72 K/uL (4.8-10.8)
[2018-09-20 07:36] LABS: Albumin Level 2.9 gm/dl (3.4-5.0); BUN Creatinine Ratio 2.3 (10-20); Calcium 8.5 mg/dl (8.5-10.1); Creatinine Clr Calc Pharmacy 124.4 ml/min; Est GFR (African American) 116.8; Est GFR (Non-African American) 100.8; Magnesium 1.6 mg/dl (1.8-2.4); Potassium 3.8 mmol/L (3.5-5.1)
[2018-09-20 07:41] LABS: Albumin Globulin Ratio 0.9 (0.9-2); Bilirubin,Total 0.7 mg/dl (0.2-1); Globulin 3.1 gm/dl (2.5-4.0); Phosphorus 2.1 mg/dl (2.5-4.9)
[2018-09-20] MEDS: chlordiazePOXIDE HCl 25 MG CAP PO SCH ×2 (08:27→21:23)
[2018-09-20] MEDS: ENOXAPARIN INJ 40 MG/0.4 ML SYR SQ SCH (08:27)
[2018-09-20] MEDS: THIAMINE HCL 100 MG in SYRINGE 9 ML IV SCH (08:27)
[2018-09-20] MEDS: PANTOprazole 40 MG TAB PO SCH ×2 (08:27→21:17)
[2018-09-20] MEDS: PARoxetine HCl 20 MG TAB PO SCH (08:27)
[2018-09-20] MEDS: SUCRALFATE 1 GM/10 ML UDC PO SCH ×4 (08:28→21:16)
[2018-09-20] MEDS: FOLIC ACID 1 MG TAB PO SCH (08:28)
[2018-09-20] MEDS: CEROVITE ADV FORMULA TAB PO SCH (08:28)
[2018-09-20] MEDS: INSULIN GLARGINE SOLOSTAR 100 UNITS/ML 3 ML PEN SC SCH ×2 (08:29→21:18)
[2018-09-20] MEDS: INSULIN ASPART 100 UNITS/ML 3 ML PEN SC SCH ×4 (08:30→21:19)
[2018-09-20] MEDS ORDERED: GABAPENTIN 600 MG TAB PO SCH (12:00)
--- NOTE | 2018-09-20 15:34 | Hospitalist Progress Note ---
Date of Service September 20, 2018 Subjective 42-year-old male with past medical history significant for alcoholism and multiple admissions for alcoholism and pancreatitis, diabetes, seems to be noncompliant with insulin, history of alcoholic gastritis, GERD, mood disorder, history of PE as per records, chronic pain and history of narcotic abuse as per records, history of bipolar depression, ADHD status post suicide attempt presents with severe abdominal pain.The patient was here in the last week of March 2018 with the same issues and he did okay and he was discharged and he refused to go to rehab at that time and refused out patient endoscopic ultrasound for his pancreatitis at that time, but patient says since discharge, he has tried to quit drinking and he did not drink much, only here and there, but last weekend he was drinking heavily again, 12 pack of beers a day and last night he started to develop again severe abdominal pain. He could not sleep because of pain. The pain was in the epigastric area going band like to the back and it was sometimes depending on his position radiating to his chest and causing some shortness of breath. It was not getting better and he tried to eat food and it made the pain worse. As it was not getting better, he came to the ER today. Denies any fever, chills. No headache, no blurred visions, no sore throat, no cough. He says no blood in the stools, no black stools. Normal bowel and bladder movements. Lives with his mother. He was in alcohol rehab in the past. Requesting for pain medications. Assessment and Plan This 42-year-old male presents with alcoholism and abdominal pain, found to be Duodenitis. 1. Abdominal pain sec to Alcohol induced Gastritis, Duodenitis. The CT scan was almost similar to last CT scan. History of chronic alcoholism. Lipase normal. Continue IV fluids c 40 K, IV pain medications, IV antiemetics, and Protonix b.i.d. GI to scope today. 2. Alcoholism/RLS. Was in rehab in 2000 and 2015. refused rehab last admission. On alcohol withdrawal protocol, Does not want gabapentin as it worsens his restless legs. Started on Librium 25mg bid for alcohol withdrawal. 3. Diabetic ketoacidosis. The patient has diabetes. Was On Lantus seems to be noncompliant. The last HbA1c was 8.7. He was on Lantus insulin sliding scale, but it seems like 3 weeks ago, he stopped Lantus and was back on metformin. He now comes with a serum glucose of 496 and anion gap of 20 and also bicarbonate 17. Alcoholism could also playing role here. We will place him on insulin DKA protocol and aggressive IV fluids. Labs as per DKA protocol. Pharmacy consult and diabetes teaching. Once improved, will change back to Lantus and sliding scale. 4. Pseudohyponatremia, Resolved 5. Bipolar depression. Continue paroxetine. 6. Deep venous thrombosis prophylaxis, sequential compression devices and Lovenox. 7. Disposition: Closely monitor in the med/surg tele, level 1 full code. EGD 09/18-- Normal esophagus. Mild gastritis. Mild erythema in the duodenum. Avoid alcohol and NSAIDS, PPI, H2 Mars at HS, add Carafate, GI Cocktail, Clears, CT Abd for persistent LUQ Pain. Needs one more night, still c Abd pain and N/V, Discussed coming off Dilaudid and stopping EToH ROS-No Headache, No Visual Changes, No Nausea, No Vomiting, No Fever, No Chills , No Neck Pain or Stiffness, No Chest Pain, No Palpitations, No SOB, No TREJO, No Cough, No Sputum, No Wheezing, +Abdominal Pain, No Diarrhea, No Hematemesis, No Hemoptysis, No Unexpected Weight Loss, No Flank pain, No Melena, No Hematochezia , No Frequency, No Urgency, No Burning, No Hematuria, No Rashes, No Diaphoresis. Appetite is decreased, +N/V Physical Exam Gen-AAO x 3, NAD, Afebrile Head-NCAT, EOMI, PERRLA, Anicteric Sclera, No Posterior Pharyngeal Erythema Neck-Supple, No JVD, No Thyromegaly, No Masses, No LAD, No Bruits Lungs-Clear to Auscultation Bilaterally, No Rales, No Rhonchi, No Wheezing, No Crepitus Chest-No S4, +S1, +S2, No S3, No Murmurs, No Rubs, No Gallops, No Ectopy Abdomen-Soft, Bowel Sounds Present, Tender, Non Distended, No Hepatomegaly, No Splenomegaly, No Palpable Masses, No Rebound, No Rigidity, No Guarding Musculoskeletal-Full Range of Motion Bilaterally, No CVAT Extremities-No Cyanosis, No Clubbing, No Edema Nuero-Cranial Nerves II-XII grossly intact, Motor WNL, DTRs WNL, Strength WNL, Non Focal Psych-Normal Mood Physical Exam 2 Vital Signs (Past 24 Hours): Last Vital Signs Temp 37.2 C 09/20/18 07:00 Pulse 82 09/20/18 07:00 Resp 18 09/20/18 07:00 BP 127/78 09/20/18 07:00 Pulse Ox 91 09/20/18 07:00 Results & Data Laboratory Results Current Diagnoses Alcohol abuse, uncomplicated (09/16/18) Alcohol-induced chronic pancreatitis (09/16/18) Hyperglycemia, unspecified (09/16/18) Encounter for other preprocedural examination (09/16/18) Personal history of other specified conditions (09/16/18) Allergies No Known Drug Allergies Allergy (Unknown, Verified 09/16/18 16:39) NONE Height/Weight/Isolation Height 6 ft Weight 98.2 kg Chemistry 09/19/18 09/20/18 07:56 06:29 Sodium 140 136 Potassium 3.7 3.8 Chloride 105 101 Carbon Dioxide 27 30 Anion Gap 8.0 5.0 BUN 4 L 2 L Creatinine 0.98 0.92 Glucose 171 H 174 H
[2018-09-20] MEDS: FAMOTIDINE 20 MG TAB PO SCH (21:23)
[2018-09-21] MEDS: HYDROmorphone INJ 2 MG/ML SYR/VIAL IV PRN ×10 (01:34→22:52)
[2018-09-21 06:22] LABS: Hematocrit (blood only) 42.9 % (42-52); Hemoglobin 14.9 g/dL (14.0-18.0); Mean Corpuscular Hgb Conc 34.7 g/dL (32-36); Mean Corpuscular Volume 95.1 fL (80-100); Mean Platelet Volume 9.2 fL (7.4-10.4); Platelet Count 144 K/uL (130-400); RDW Coefficient of Variation 12.3 % (11.5-14.5); RDW Standard Deviation 42.1 fL (36.4-46.3); Red Blood Count 4.51 M/uL (4.7-6.1); White Blood Count 4.77 K/uL (4.8-10.8)
[2018-09-21 06:33] LABS: INR 1.1 (0.9-1.1); Prothrombin Time 10.7 Seconds (9.0-12.0)
[2018-09-21 06:58] LABS: Albumin Level 3.1 gm/dl (3.4-5.0); BUN Creatinine Ratio 1.3 (10-20); Est GFR (African American) 109.6; Est GFR (Non-African American) 94.6; Potassium 4.2 mmol/L (3.5-5.1)
[2018-09-21 07:01] LABS: Albumin Globulin Ratio 0.9 (0.9-2); Bilirubin,Total 0.5 mg/dl (0.2-1); Globulin 3.4 gm/dl (2.5-4.0); Total Protein 6.5 gm/dl (6.4-8.2)
[2018-09-21] MEDS: SUCRALFATE 1 GM/10 ML UDC PO SCH ×4 (07:51→20:58)
[2018-09-21] MEDS: POTASSIUM CHLORIDE 40 MEQ in SODIUM CHLORIDE 0.9% 1000ML 1,000 ML IV SCH ×2 (08:01→16:04)
[2018-09-21] MEDS: PANTOprazole 40 MG TAB PO SCH ×2 (09:24→20:59)
[2018-09-21] MEDS: CEROVITE ADV FORMULA TAB PO SCH (09:24)
[2018-09-21] MEDS: PARoxetine HCl 20 MG TAB PO SCH (09:24)
[2018-09-21] MEDS: ENOXAPARIN INJ 40 MG/0.4 ML SYR SQ SCH (09:24)
[2018-09-21] MEDS: INSULIN GLARGINE SOLOSTAR 100 UNITS/ML 3 ML PEN SC SCH ×2 (09:24→22:05)
[2018-09-21] MEDS: FOLIC ACID 1 MG TAB PO SCH (09:25)
[2018-09-21] MEDS: THIAMINE HCL 100 MG in SYRINGE 9 ML IV SCH (09:25)
[2018-09-21] MEDS: INSULIN ASPART 100 UNITS/ML 3 ML PEN SC SCH ×4 (09:25→21:00)
[2018-09-21] MEDS: chlordiazePOXIDE HCl 25 MG CAP PO SCH ×2 (09:39→20:58)
--- NOTE | 2018-09-21 09:56 | Pharmacy Report ---
Pharmacy Glycemic Short Note 2 - Date of Service September 21, 2018 - Glycemic Short BSG Results (Last 24 hours): 09/20/18 09/20/18 09/20/18 11:38 16:31 20:36 Glucose POC Glucose 191 H 153 H 207 H 09/21/18 09/21/18 06:02 07:30 Glucose 179 H POC Glucose 219 H OUTPATIENT ANTIDIABETIC REGIMEN: * Metformin 1 gm daily * (was previously on Lantus but reportedly stopped ~2 months ago) * A1c = 9.4 % 09/17/18 ASSESSMENT: 09/21/18 * Patient received 24 units of insulin yesterday, blood sugars all somewhat above goal, 153-207mg/dl * Will change dosing parameters for Lantus to ensure patient receives 10 units for BSG > 140mg/dl * May need to tighten CF and CR slightly, will decide after lunch BSG 09/19/18 * Mr. Zeng received only 8 units of insulin yesterday, was NPO for the whole day * Diet has been advanced today but po intake remains minimal * Daily basal amounts received thus far: 09/17 20 units, 09/18 8 units * Fasting BSG = 173 mg/dL; anticipating basal needs to be ~15 units * Postprandial BSGs on the lower side; will adjust Novolog parameters to be less aggressive 09/18/18 * Mr. Zeng received 26 units of SQ insulin yesterday after being transitioned off the insulin drip. 20 of this being basal. * He is currently NPO for an EGD today * Fasting BSG = 104 mg/dL; will decrease basal slightly to prevent hypoglycemia 09/17/18 * Mr. Zeng is a 42 y/o male admitted for alcoholism and pancreatitis. Was initiated on an insulin drip last evening for possible DKA. BSGs came down fairly quickly and insulin drip was on hold this AM for BSGs below goal. Labs are WNL so acceptable to transition to SQ at this point. Will initiate with less than weight based dosing d/t quick improvement in BSGs with low insulin drip rates. In addition, patient has not had po intake yet today and IVFs have been changed to LR. * Of note, outpatient compliance has been an issue. Patient was not a fan of insulin and this was stopped ~ 2 months ago when the provider switched back to metformin. There is concern with using this in alcoholism and patient is refusing insulin on discharge, so a sulfonylurea may be the next option. Will need to determine a plan before discharge. Of note, previous outpatient Lantus dosing was only 24 units daily. PLAN FOR INPATIENT GLYCEMIC CONTROL: * Continue to hold outpatient oral diabetes medications * Basal insulin - change dosing parameters * Lantus SQ BID per the following scale: * Hold for BSG < 110 * 7 units for BSG 110-140 * 10 units for BSG > 140 * Bolus insulin * NovoLog per scale ACHS or Q6hrs while NPO * Goal Range: Low 110 mg/dL - High 140 mg/dL * Correction Factor: 30 mg/dL/unit * Nutritional / Prandial insulin per carb ratio of 1 unit per 10 grams CHO consumed PLAN FOR DISCHARGE: * Patient is refusing insulin on discharge * Recommend trialing initial doses of glimepiride 2 mg daily or glipizide 2.5 mg daily
--- NOTE | 2018-09-21 10:32 | Hospitalist Progress Note ---
Date of Service September 21, 2018 Subjective 42-year-old male with past medical history significant for alcoholism and multiple admissions for alcoholism and pancreatitis, diabetes, seems to be noncompliant with insulin, history of alcoholic gastritis, GERD, mood disorder, history of PE as per records, chronic pain and history of narcotic abuse as per records, history of bipolar depression, ADHD status post suicide attempt presents with severe abdominal pain.The patient was here in the last week of March 2018 with the same issues and he did okay and he was discharged and he refused to go to rehab at that time and refused out patient endoscopic ultrasound for his pancreatitis at that time, but patient says since discharge, he has tried to quit drinking and he did not drink much, only here and there, but last weekend he was drinking heavily again, 12 pack of beers a day and last night he started to develop again severe abdominal pain. He could not sleep because of pain. The pain was in the epigastric area going band like to the back and it was sometimes depending on his position radiating to his chest and causing some shortness of breath. It was not getting better and he tried to eat food and it made the pain worse. As it was not getting better, he came to the ER today. Denies any fever, chills. No headache, no blurred visions, no sore throat, no cough. He says no blood in the stools, no black stools. Normal bowel and bladder movements. Lives with his mother. He was in alcohol rehab in the past. Requesting for pain medications. Assessment and Plan This 42-year-old male presents with alcoholism and abdominal pain, found to be Duodenitis. 1. Abdominal pain sec to Alcohol induced Gastritis, Duodenitis. The CT scan was almost similar to last CT scan. History of chronic alcoholism. Lipase normal. Continue IV fluids c 40 K, IV pain medications, IV antiemetics, and Protonix b.i.d. GI to scope today. 2. Alcoholism/RLS. Was in rehab in 2000 and 2015. refused rehab last admission. On alcohol withdrawal protocol, Does not want gabapentin as it worsens his restless legs. Started on Librium 25mg bid for alcohol withdrawal. 3. Diabetic ketoacidosis. The patient has diabetes. Was On Lantus seems to be noncompliant. The last HbA1c was 8.7. He was on Lantus insulin sliding scale, but it seems like 3 weeks ago, he stopped Lantus and was back on metformin. He now comes with a serum glucose of 496 and anion gap of 20 and also bicarbonate 17. Alcoholism could also playing role here. Resolved DC on Lantus and Metformin 4. Pseudohyponatremia, Resolved 5. Bipolar depression. Continue paroxetine. 6. Deep venous thrombosis prophylaxis, sequential compression devices and Lovenox. 7. Disposition: Closely monitor in the med/surg tele, level 1 full code. EGD 09/18-- Normal esophagus. Mild gastritis. Mild erythema in the duodenum. Avoid alcohol and NSAIDS, PPI, H2 Mars at HS, add Carafate, GI Cocktail, Clears, CT Abd for persistent LUQ Pain. Needs one more night, still c Abd pain and N/V, Discussed coming off Dilaudid and stopping EToH, DC 09/22 ROS-No Headache, No Visual Changes, No Nausea, No Vomiting, No Fever, No Chills , No Neck Pain or Stiffness, No Chest Pain, No Palpitations, No SOB, No TREJO, No Cough, No Sputum, No Wheezing, +Abdominal Pain, No Diarrhea, No Hematemesis, No Hemoptysis, No Unexpected Weight Loss, No Flank pain, No Melena, No Hematochezia , No Frequency, No Urgency, No Burning, No Hematuria, No Rashes, No Diaphoresis. Appetite is decreased, +N/V Physical Exam Gen-AAO x 3, NAD, Afebrile Head-NCAT, EOMI, PERRLA, Anicteric Sclera, No Posterior Pharyngeal Erythema Neck-Supple, No JVD, No Thyromegaly, No Masses, No LAD, No Bruits Lungs-Clear to Auscultation Bilaterally, No Rales, No Rhonchi, No Wheezing, No Crepitus Chest-No S4, +S1, +S2, No S3, No Murmurs, No Rubs, No Gallops, No Ectopy Abdomen-Soft, Bowel Sounds Present, Tender, Non Distended, No Hepatomegaly, No Splenomegaly, No Palpable Masses, No Rebound, No Rigidity, No Guarding Musculoskeletal-Full Range of Motion Bilaterally, No CVAT Extremities-No Cyanosis, No Clubbing, No Edema Nuero-Cranial Nerves II-XII grossly intact, Motor WNL, DTRs WNL, Strength WNL, Non Focal Psych-Normal Mood Physical Exam 2 Vital Signs (Past 24 Hours): Last Vital Signs Temp 36.7 C 09/21/18 07:00 Pulse 87 09/21/18 07:00 Resp 19 09/21/18 07:00 BP 107/72 09/21/18 07:00 Pulse Ox 90 09/21/18 07:00 Results & Data Laboratory Results Current Diagnoses Alcohol abuse, uncomplicated (09/16/18) Alcohol-induced chronic pancreatitis (09/16/18) Hyperglycemia, unspecified (09/16/18) Encounter for other preprocedural examination (09/16/18) Personal history of other specified conditions (09/16/18) Allergies No Known Drug Allergies Allergy (Unknown, Verified 09/16/18 16:39) NONE Height/Weight/Isolation Height 6 ft Weight 98.2 kg Chemistry 09/20/18 09/21/18 06:29 06:02 Sodium 136 141 Potassium 3.8 4.2 Chloride 101 106 Carbon Dioxide 30 32 Anion Gap 5.0 3.0 BUN 2 L 1 L Creatinine 0.92 0.97 Glucose 174 H 179 H
[2018-09-21] MEDS: ONDANSETRON INJ 2 MG/ML 2 ML VIAL IV PRN ×2 (13:06→20:54)
[2018-09-21] MEDS: FAMOTIDINE 20 MG TAB PO SCH (20:59)
[2018-09-22] MEDS: POTASSIUM CHLORIDE 40 MEQ in SODIUM CHLORIDE 0.9% 1000ML 1,000 ML IV SCH ×2 (00:26→08:56)
[2018-09-22] MEDS: HYDROmorphone INJ 2 MG/ML SYR/VIAL IV PRN ×8 (00:41→21:03)
[2018-09-22] MEDS: ONDANSETRON INJ 2 MG/ML 2 ML VIAL IV PRN ×3 (05:54→21:42)
[2018-09-22] MEDS: SUCRALFATE 1 GM/10 ML UDC PO SCH ×4 (07:50→21:03)
[2018-09-22] MEDS: INSULIN ASPART 100 UNITS/ML 3 ML PEN SC SCH ×4 (08:56→21:06)
[2018-09-22] MEDS: INSULIN GLARGINE SOLOSTAR 100 UNITS/ML 3 ML PEN SC SCH ×2 (08:58→21:07)
[2018-09-22] MEDS: FOLIC ACID 1 MG TAB PO SCH (08:59)
[2018-09-22] MEDS: ENOXAPARIN INJ 40 MG/0.4 ML SYR SQ SCH (09:00)
[2018-09-22] MEDS: CEROVITE ADV FORMULA TAB PO SCH (09:00)
[2018-09-22] MEDS: PARoxetine HCl 20 MG TAB PO SCH (09:00)
[2018-09-22] MEDS: PANTOprazole 40 MG TAB PO SCH (09:00)
[2018-09-22] MEDS: THIAMINE HCL 100 MG in SYRINGE 9 ML IV SCH (09:01)
[2018-09-22] MEDS: chlordiazePOXIDE HCl 25 MG CAP PO SCH ×2 (09:17→21:13)
[2018-09-22] MEDS ORDERED: PANTOPRAZOLE BOLUS/DRIP 1 EA IV STA (11:36)
--- NOTE | 2018-09-22 11:41 | Hospitalist Progress Note ---
Date of Service September 22, 2018 Subjective 42-year-old male with past medical history significant for alcoholism and multiple admissions for alcoholism and pancreatitis, diabetes, seems to be noncompliant with insulin, history of alcoholic gastritis, GERD, mood disorder, history of PE as per records, chronic pain and history of narcotic abuse as per records, history of bipolar depression, ADHD status post suicide attempt presents with severe abdominal pain.The patient was here in the last week of March 2018 with the same issues and he did okay and he was discharged and he refused to go to rehab at that time and refused out patient endoscopic ultrasound for his pancreatitis at that time, but patient says since discharge, he has tried to quit drinking and he did not drink much, only here and there, but last weekend he was drinking heavily again, 12 pack of beers a day and last night he started to develop again severe abdominal pain. He could not sleep because of pain. The pain was in the epigastric area going band like to the back and it was sometimes depending on his position radiating to his chest and causing some shortness of breath. It was not getting better and he tried to eat food and it made the pain worse. As it was not getting better, he came to the ER today. Denies any fever, chills. No headache, no blurred visions, no sore throat, no cough. He says no blood in the stools, no black stools. Normal bowel and bladder movements. Lives with his mother. He was in alcohol rehab in the past. Requesting for pain medications. Assessment and Plan This 42-year-old male presents with alcoholism and abdominal pain, found to be Duodenitis. 1. Abdominal pain sec to Alcohol induced Gastritis, Duodenitis. History of chronic alcoholism. Lipase normal. 09/22 make NPO and start IVFs, Start PPI gtt, c/o hematemesis, c/o CP, Troponins were ordered, EKG-Suspicious for pericarditis , see below 2. Alcoholism/RLS. Was in rehab in 2000 and 2015. refused rehab last admission. On alcohol withdrawal protocol, Does not want gabapentin as it worsens his restless legs. Started on Librium 25mg bid for alcohol withdrawal. 3. Diabetic ketoacidosis. The patient has diabetes. Was On Lantus seems to be noncompliant. The last HbA1c was 8.7. He was on Lantus insulin sliding scale, but it seems like 3 weeks ago, he stopped Lantus and was back on metformin. He now comes with a serum glucose of 496 and anion gap of 20 and also bicarbonate 17. Alcoholism could also playing role here. Resolved DC on Lantus and Metformin 4. Pseudohyponatremia, Resolved 5. Bipolar depression. Continue paroxetine. 6. Deep venous thrombosis prophylaxis, sequential compression devices and Lovenox. 7. CP-Cardiac enzymes, EKG ordered, C ards eval, Echo EGD 09/18--Normal esophagus. Mild gastritis. Mild erythema in the duodenum. Avoid alcohol and NSAIDS, PPI, H2 Mars at HS, add Carafate, GI Cocktail, Clears, CT Abd for persistent LUQ Pain. Needs one more night, still c Abd pain and N/V, Discussed coming off Dilaudid, decreased dose today, and stopping EToH , 09/22 c/o CP, Cardiac w/u started. ROS-No Headache, No Visual Changes, No Nausea, No Vomiting, No Fever, No Chills , No Neck Pain or Stiffness, +Chest Pain radiating to neck jaw and down his left arm, No Palpitations, No SOB, No TREJO, No Cough, No Sputum, No Wheezing, + Abdominal Pain, No Diarrhea, +Hematemesis, No Hemoptysis, No Unexpected Weight Loss, No Flank pain, No Melena, No Hematochezia, No Frequency, No Urgency, No Burning, No Hematuria, No Rashes, No Diaphoresis. Appetite is decreased, +N/V Physical Exam Gen-AAO x 3, NAD, Afebrile Head-NCAT, EOMI, PERRLA, Anicteric Sclera, No Posterior Pharyngeal Erythema Neck-Supple, No JVD, No Thyromegaly, No Masses, No LAD, No Bruits Lungs-Clear to Auscultation Bilaterally, No Rales, No Rhonchi, No Wheezing, No Crepitus Chest-No S4, +S1, +S2, No S3, No Murmurs, No Rubs, No Gallops, No Ectopy Abdomen-Soft, Bowel Sounds Present, Tender, Non Distended, No Hepatomegaly, No Splenomegaly, No Palpable Masses, No Rebound, No Rigidity, No Guarding Musculoskeletal-Full Range of Motion Bilaterally, No CVAT Extremities-No Cyanosis, No Clubbing, No Edema Nuero-Cranial Nerves II-XII grossly intact, Motor WNL, DTRs WNL, Strength WNL, Non Focal Psych-Normal Mood Physical Exam 2 Vital Signs (Past 24 Hours): Last Vital Signs Temp 36.3 C L 09/22/18 07:45 Pulse 77 09/22/18 07:45 Resp 18 09/22/18 07:45 BP 120/76 09/22/18 07:45 Pulse Ox 97 09/22/18 07:45 Results & Data Laboratory Results Current Diagnoses Alcohol abuse, uncomplicated (09/16/18) Alcohol-induced chronic pancreatitis (09/16/18) Hyperglycemia, unspecified (09/16/18) Encounter for other preprocedural examination (09/16/18) Personal history of other specified conditions (09/16/18) Allergies No Known Drug Allergies Allergy (Unknown, Verified 09/16/18 16:39) NONE Height/Weight/Isolation Height 6 ft Weight 98.2 kg Chemistry 09/21/18 06:02 Sodium 141 Potassium 4.2 Chloride 106 Carbon Dioxide 32 Anion Gap 3.0 BUN 1 L Creatinine 0.97 Glucose 179 H
[2018-09-22] MEDS ORDERED: PANTOprazole 80 MG in DEXTROSE 5% 100 ML IV ONE (12:00)
[2018-09-22] MEDS: NSS + 20MEQ KCL 20 MEQ/1,000 ML BAG IV SCH (12:11)
[2018-09-22] MEDS: PANTOprazole 40 MG in DEXTROSE 5% 100 ML IV SCH ×3 (12:24→21:42)
[2018-09-22] MEDS: FAMOTIDINE 20 MG TAB PO SCH (21:04)
[2018-09-23] MEDS: NSS + 20MEQ KCL 20 MEQ/1,000 ML BAG IV SCH ×3 (00:11→23:41)
[2018-09-23] MEDS: HYDROmorphone INJ 2 MG/ML SYR/VIAL IV PRN ×2 (00:11→04:13)
[2018-09-23] MEDS: PANTOprazole 40 MG in DEXTROSE 5% 100 ML IV SCH ×5 (03:15→23:21)
[2018-09-23 06:33] LABS: INR 1.1 (0.9-1.1); Prothrombin Time 10.9 Seconds (9.0-12.0)
[2018-09-23 06:56] LABS: Albumin Level 2.8 gm/dl (3.4-5.0); BUN Creatinine Ratio 1.8 (10-20); Calcium 8.8 mg/dl (8.5-10.1); Creatinine Clr Calc Pharmacy 133.1 ml/min; Est GFR (African American) 122.2; Est GFR (Non-African American) 105.5; Potassium 3.8 mmol/L (3.5-5.1)
[2018-09-23 06:58] LABS: Albumin Globulin Ratio 0.8 (0.9-2); Bilirubin,Total 0.5 mg/dl (0.2-1); Globulin 3.3 gm/dl (2.5-4.0); Total Protein 6.1 gm/dl (6.4-8.2)
[2018-09-23] MEDS ORDERED: OXYCODONE HCL IR 5 MG TAB (IMMEDIATE RELEASE) PO PRN (07:15)
[2018-09-23] MEDS: SUCRALFATE 1 GM/10 ML UDC PO SCH ×4 (07:59→21:24)
[2018-09-23] MEDS: HYDROmorphone INJ 1 MG/ML SYRINGE IV PRN ×4 (08:00→19:50)
[2018-09-23] MEDS: FOLIC ACID 1 MG TAB PO SCH (08:02)
[2018-09-23] MEDS: CEROVITE ADV FORMULA TAB PO SCH (08:04)
[2018-09-23] MEDS: INSULIN ASPART 100 UNITS/ML 3 ML PEN SC SCH ×4 (08:59→21:23)
[2018-09-23] MEDS: INSULIN GLARGINE SOLOSTAR 100 UNITS/ML 3 ML PEN SC SCH ×2 (08:59→21:22)
[2018-09-23] MEDS: ACETAMINOPHEN 500 MG TAB PO SCH ×4 (08:59→19:50)
[2018-09-23] MEDS: ENOXAPARIN INJ 40 MG/0.4 ML SYR SQ SCH (09:00)
[2018-09-23] MEDS: PARoxetine HCl 20 MG TAB PO SCH (09:01)
[2018-09-23] MEDS: THIAMINE HCL 100 MG in SYRINGE 9 ML IV SCH (09:01)
--- NOTE | 2018-09-23 10:00 | Pharmacy Report ---
Pharmacy Glycemic Short Note 2 - Date of Service September 23, 2018 - Glycemic Short BSG Results (Last 24 hours): 09/22/18 09/22/18 09/22/18 12:00 16:33 20:51 Glucose POC Glucose 128 H 124 H 180 H 09/23/18 09/23/18 06:07 07:56 Glucose 97 POC Glucose 84 OUTPATIENT ANTIDIABETIC REGIMEN: * Metformin 1 gm daily * (was previously on Lantus but reportedly stopped ~2 months ago) * A1c = 9.4 % 09/17/18 ASSESSMENT: 09/23/18 * Patient using 22-28 units of insulin/day, blood sugars at goal. Lantus on a scale. Minimal PO intake. * No changes needed in insulin regimen at this time. * Protonix drip started yesterday. 09/21/18 * Patient received 24 units of insulin yesterday, blood sugars all somewhat above goal, 153-207mg/dl * Will change dosing parameters for Lantus to ensure patient receives 10 units for BSG > 140mg/dl * May need to tighten CF and CR slightly, will decide after lunch BSG 09/19/18 * Mr. Zeng received only 8 units of insulin yesterday, was NPO for the whole day * Diet has been advanced today but po intake remains minimal * Daily basal amounts received thus far: 09/17 20 units, 09/18 8 units * Fasting BSG = 173 mg/dL; anticipating basal needs to be ~15 units * Postprandial BSGs on the lower side; will adjust Novolog parameters to be less aggressive 09/18/18 * Mr. Zeng received 26 units of SQ insulin yesterday after being transitioned off the insulin drip. 20 of this being basal. * He is currently NPO for an EGD today * Fasting BSG = 104 mg/dL; will decrease basal slightly to prevent hypoglycemia 09/17/18 * Mr. Zeng is a 42 y/o male admitted for alcoholism and pancreatitis. Was initiated on an insulin drip last evening for possible DKA. BSGs came down fairly quickly and insulin drip was on hold this AM for BSGs below goal. Labs are WNL so acceptable to transition to SQ at this point. Will initiate with less than weight based dosing d/t quick improvement in BSGs with low insulin drip rates. In addition, patient has not had po intake yet today and IVFs have been changed to LR. * Of note, outpatient compliance has been an issue. Patient was not a fan of insulin and this was stopped ~ 2 months ago when the provider switched back to metformin. There is concern with using this in alcoholism and patient is refusing insulin on discharge, so a sulfonylurea may be the next option. Will need to determine a plan before discharge. Of note, previous outpatient Lantus dosing was only 24 units daily. PLAN FOR INPATIENT GLYCEMIC CONTROL: * Continue to hold outpatient oral diabetes medications * Basal insulin * Lantus SQ BID per the following scale: * Hold for BSG < 110 * 7 units for BSG 110-140 * 10 units for BSG > 140 * Bolus insulin * NovoLog per scale ACHS or Q6hrs while NPO * Goal Range: Low 110 mg/dL - High 140 mg/dL * Correction Factor: 30 mg/dL/unit * Nutritional / Prandial insulin per carb ratio of 1 unit per 10 grams CHO consumed PLAN FOR DISCHARGE: * Patient is refusing insulin on discharge * Recommend trialing initial doses of glimepiride 2 mg daily or glipizide 2.5 mg daily
--- NOTE | 2018-09-23 10:14 | Hospitalist Progress Note ---
Date of Service September 23, 2018 Subjective 42-year-old male with past medical history significant for alcoholism and multiple admissions for alcoholism and pancreatitis, diabetes, seems to be noncompliant with insulin, history of alcoholic gastritis, GERD, mood disorder, history of PE as per records, chronic pain and history of narcotic abuse as per records, history of bipolar depression, ADHD status post suicide attempt presents with severe abdominal pain.The patient was here in the last week of March 2018 with the same issues and he did okay and he was discharged and he refused to go to rehab at that time and refused out patient endoscopic ultrasound for his pancreatitis at that time, but patient says since discharge, he has tried to quit drinking and he did not drink much, only here and there, but last weekend he was drinking heavily again, 12 pack of beers a day and last night he started to develop again severe abdominal pain. He could not sleep because of pain. The pain was in the epigastric area going band like to the back and it was sometimes depending on his position radiating to his chest and causing some shortness of breath. It was not getting better and he tried to eat food and it made the pain worse. As it was not getting better, he came to the ER today. Denies any fever, chills. No headache, no blurred visions, no sore throat, no cough. He says no blood in the stools, no black stools. Normal bowel and bladder movements. Lives with his mother. He was in alcohol rehab in the past. Requesting for pain medications. Assessment and Plan This 42-year-old male presents with alcoholism and abdominal pain, found to be Duodenitis. 1. Abdominal pain sec to Alcohol induced Gastritis, Duodenitis. History of chronic alcoholism. Lipase normal. 09/22 make NPO and start IVFs, Start PPI gtt, c/o hematemesis, c/o CP, Troponins were ordered, EKG-Suspicious for pericarditis , see below 2. Alcoholism/RLS. Was in rehab in 2000 and 2015. refused rehab last admission. On alcohol withdrawal protocol, Does not want gabapentin as it worsens his restless legs. Started on Librium 25mg bid for alcohol withdrawal. 3. Diabetic ketoacidosis. The patient has diabetes. Was On Lantus seems to be noncompliant. The last HbA1c was 8.7. He was on Lantus insulin sliding scale, but it seems like 3 weeks ago, he stopped Lantus and was back on metformin. He now comes with a serum glucose of 496 and anion gap of 20 and also bicarbonate 17. Alcoholism could also playing role here. Resolved DC on Lantus and Metformin 4. Pseudohyponatremia, Resolved 5. Bipolar depression. Continue paroxetine. 6. Deep venous thrombosis prophylaxis, sequential compression devices and Lovenox. 7. CP-Cardiac enzymes all negative, EKG noted, Cards eval EGD 09/18--Normal esophagus. Mild gastritis. Mild erythema in the duodenum. Avoid alcohol and NSAIDS, PPI, H2 Mars at HS, add Carafate, GI Cocktail, Clears, CT Abd for persistent LUQ Pain. Needs one more night, still c Abd pain and N/V, Discussed coming off Dilaudid, decreased dose, and stopping EToH, 09/22 c/o CP, Cardiac w/u started. Pain not controlled, c/s pain specialist in am ROS-No Headache, No Visual Changes, No Nausea, No Vomiting, No Fever, No Chills , No Neck Pain or Stiffness, +Chest Pain radiating to neck jaw and down his left arm, No Palpitations, No SOB, No TREJO, No Cough, No Sputum, No Wheezing, +Abdominal Pain, No Diarrhea, +Hematemesis, No Hemoptysis, No Unexpected Weight Loss, No Flank pain, No Melena, No Hematochezia, No Frequency, No Urgency, No Burning, No Hematuria, No Rashes, No Diaphoresis. Appetite is decreased, +N/V Physical Exam Gen-AAO x 3, NAD, Afebrile Head-NCAT, EOMI, PERRLA, Anicteric Sclera, No Posterior Pharyngeal Erythema Neck-Supple, No JVD, No Thyromegaly, No Masses, No LAD, No Bruits Lungs-Clear to Auscultation Bilaterally, No Rales, No Rhonchi, No Wheezing, No Crepitus Chest-No S4, +S1, +S2, No S3, No Murmurs, No Rubs, No Gallops, No Ectopy Abdomen-Soft, Bowel Sounds Present, Tender, Non Distended, No Hepatomegaly, No Splenomegaly, No Palpable Masses, No Rebound, No Rigidity, No Guarding Musculoskeletal-Full Range of Motion Bilaterally, No CVAT Extremities-No Cyanosis, No Clubbing, No Edema Nuero-Cranial Nerves II-XII grossly intact, Motor WNL, DTRs WNL, Strength WNL, Non Focal Psych-Normal Mood Physical Exam 2 Vital Signs (Past 24 Hours): Last Vital Signs Temp 36.2 C L 09/23/18 07:00 Pulse 77 09/23/18 07:00 Resp 18 09/23/18 07:00 BP 120/77 09/23/18 07:00 Pulse Ox 95 09/23/18 07:00 Results & Data Laboratory Results Current Diagnoses Alcohol abuse, uncomplicated (09/16/18) Alcohol-induced chronic pancreatitis (09/16/18) Hyperglycemia, unspecified (09/16/18) Encounter for other preprocedural examination (09/16/18) Personal history of other specified conditions (09/16/18) Allergies No Known Drug Allergies Allergy (Unknown, Verified 09/16/18 16:39) NONE Height/Weight/Isolation Height 6 ft Weight 98.2 kg Chemistry 09/23/18 06:07 Sodium 141 Potassium 3.8 Chloride 108 H Carbon Dioxide 30 Anion Gap 3.0 BUN 2 L Creatinine 0.86 Glucose 97
--- NOTE | 2018-09-23 10:27 | Cardiology Consultation ---
Date of Consultation September 23, 2018 Assessment & Plan (1) Alcohol abuse: (2) Pancreatitis: (3) DM type 2 (diabetes mellitus, type 2): (4) History of substance abuse: (5) Panic disorder: (6) Depression: (7) Chest pain: This is noncardiac chest pain most likely related to pancreatitis. His cardiac markers have been negative. His EKG is normal. His echocardiogram is also normal. I would recommend no additional cardiac testing at this time. History of Present Illness Attending Physician: Jayesh Stone DO History of Present Illness This is a 42-year-old male patient with a history who has a history of pulmonary emboli but no prior history of heart disease. He has a history of alcoholism and chronic substance abuse. He was admitted with pancreatitis. Most of his discomfort has been epigastric abdominal pain but occasionally radiates up into his chest. His EKG show normal repolarization and no changes that would suggest ischemia. Cardiac markers have been negative. His echocardiogram which I reviewed today was essentially normal. Allergies Allergy/AdvReac Type Severity Reaction Status Date / Time No Known Drug Allergies Allergy Unknown NONE Verified 09/16/18 16:39 Home Medications Home Medications Medication Instructions Recorded Confirmed Type metformin 1,000 mg PO DAILY 09/16/18 09/16/18 History pantoprazole 40 mg PO DAILY 09/16/18 09/16/18 History paroxetine HCl 20 mg PO DAILY 09/16/18 09/16/18 History Patient History Medical History DM type 2 (diabetes mellitus, type 2) (Chronic) Renae's esophagus (Chronic Unknown) "per EGD 11/23/09 " On 05/31/11 09:06 Martinez Jose wrote "per EGD 11/23/09 " H/O acute pancreatitis (Chronic) "recurrent" Alcohol abuse (Chronic Unknown) History of substance abuse (Chronic) Depression (Chronic) Panic disorder (Chronic) Lumbar degenerative disc disease (Chronic) Suicidal ideation (Chronic) Mood disorder (Chronic) Suicide attempt (Resolved) Suicidal ideation (Resolved) Intentional drug overdose (Resolved) Mood disorder (Chronic) Depression (Chronic) Pulmonary embolism (Resolved) Abdominal pain Chest pain Hyperglycemia (Acute) Neuropathy (Acute) Surgical History H/O esophagogastroduodenoscopy (Chronic) "EGD 11/23/2009- mild gastritis, suspicious for gastroparesis, Z-line irregular EUS 02/04/2010- mild chronic pancreatitis, pronounced cholesterolosis of gallbladder, no biliary dilation or stones, probable gastroparesis EGD 10/31/2014- gastritis" Social History Current Living Situation: Parent Feels Safe at Home: Yes Safety Concerns: Feels Safe At This Time Smoking Status: Heavy tobacco smoker Do You Dip or Chew Tobacco: Yes Hx Alcohol Use: Yes Alcohol type: beer Alcohol Intake Frequency: a few times a week Hx Substance Use: No Beliefs That Will Affect Care: None Communication Ability: Effective Review of Systems Review of Systems: See HPI for pertinent positives. All other 10 point review of systems are negative. Physical Exam 2 Vital Signs (Past 24 Hours): Last Vital Signs Temp 36.2 C L 09/23/18 07:00 Pulse 77 09/23/18 07:00 Resp 18 09/23/18 07:00 BP 120/77 09/23/18 07:00 Pulse Ox 95 09/23/18 07:00 Physical Exam: General: no acute distress and stated age Head: normocephalic, no masses, lesions, tenderness or abnormalities Eyes: conjunctiva are pink and non-injected, sclera clear Neck: supple, no adenopathy, no bruits, normal jugular venous pulse, no hepatojugular reflux Chest: normal shape and normal respiratory effort Lungs: clear to auscultation and percussion Cardiac Exam: - regular rate & rhythm, no murmurs gallops or rubs - normal S1, normal S2 Pulses: 2(+) throughout Abdomen: abdomen soft, non-tender, no abnormal masses and no hepatosplenomegaly Musculoskeletal: no gait disturbance, no joint inflammation, no deforming arthritis Extremities: no edema and no cyanosis Neuro: grossly normal exam Results & Data Laboratory Results Laboratory Results - last 24 hr 09/22/18 09/22/18 09/22/18 12:00 12:10 16:33 PT INR Sodium Potassium Chloride Carbon Dioxide Anion Gap BUN Creatinine Est Cr Clr Drug Dosing Est GFR ( Amer) Est GFR (Non-Af Amer) BUN/Creatinine Ratio Glucose POC Glucose 128 H 124 H Calcium Total Bilirubin AST ALT Alkaline Phosphatase Troponin I < 0.015 Total Protein Albumin Globulin Albumin/Globulin Ratio 09/22/18 09/22/18 09/23/18 17:57 20:51 06:07 PT 10.9 INR 1.1 Sodium Potassium Chloride Carbon Dioxide Anion Gap BUN Creatinine Est Cr Clr Drug Dosing Est GFR ( Amer) Est GFR (Non-Af Amer) BUN/Creatinine Ratio Glucose POC Glucose 180 H Calcium Total Bilirubin AST ALT Alkaline Phosphatase Troponin I < 0.015 Total Protein Albumin Globulin Albumin/Globulin Ratio 09/23/18 09/23/18 06:07 07:56 PT INR Sodium 141 Potassium 3.8 Chloride 108 H Carbon Dioxide 30 Anion Gap 3.0 BUN 2 L Creatinine 0.86 Est Cr Clr Drug Dosing 133.1 Est GFR ( Amer) 122.2 Est GFR (Non-Af Amer) 105.5 BUN/Creatinine Ratio 1.8 L Glucose 97 POC Glucose 84 Calcium 8.8 Total Bilirubin 0.5 AST 17 ALT 21 Alkaline Phosphatase 60 Troponin I Total Protein 6.1 L Albumin 2.8 L Globulin 3.3 Albumin/Globulin Ratio 0.8 L Medications Administered Current Inpatient Medications Acetaminophen (Tylenol) 650 mg PO Q4H PRN PRN Reason: Pain or Fever Stop: 10/16/18 21:45 Last Admin: 09/17/18 04:00 Dose: 650 mg Acetaminophen (Tylenol) 500 mg PO Q4HWA [facility] Stop: 10/23/18 07:59 Last Admin: 09/23/18 08:59 Dose: Not Given Chlordiazepoxide HCl (Librium) 25 mg PO BID [facility] Stop: 10/17/18 08:59 Last Admin: 09/22/18 21:13 Dose: 25 mg Al Hydrox/Mg Hydrox/Simethicone 72 ml/ Lidocaine HCl 24 ml/ [employer] 1 ea 0 ml PO UD PRN PRN Reason: GI Upset Stop: 10/19/18 07:46 Last Admin: 09/22/18 10:28 Dose: 5 ml Dextrose (Dextrose 50%) 25 - 50 ml IV UD PRN; Protocol PRN Reason: Hypoglycemia Protocol Stop: 10/16/18 22:30 Enoxaparin Sodium (Lovenox) 40 mg SQ Q24H [facility] Stop: 10/17/18 08:59 Last Admin: 09/23/18 09:00 Dose: Not Given Famotidine (Pepcid) 20 mg PO HS [facility] Stop: 10/19/18 20:59 Last Admin: 09/22/18 21:04 Dose: 20 mg Folic Acid (Folvite) 1 mg PO QAM [facility] Stop: 10/17/18 08:59 Last Admin: 09/23/18 08:02 Dose: Not Given Glucagon (Glucagen) 1 mg IM UD PRN; Protocol PRN Reason: Hypoglycemia Protocol Stop: 10/16/18 22:30 Glucose (Glucose 40%) 15 - 30 gm PO UD PRN; Protocol PRN Reason: Hypoglycemia Protocol Stop: 10/16/18 22:30 Glucose (Dex4 Glucose) 4 - 8 tabs PO UD PRN; Protocol PRN Reason: Hypoglycemia Protocol Stop: 10/16/18 22:30 Hydromorphone HCl (Dilaudid) 1 mg IV Q3H PRN PRN Reason: Pain Stop: 10/02/18 07:57 Last Admin: 09/23/18 08:00 Dose: 1 mg Thiamine HCl 100 mg/ Syringe 10 mls @ 2 mls/hr IV Q24H [facility]; Protocol Stop: 10/17/18 08:59 Last Admin: 09/23/18 09:01 Dose: 2 mls/hr Lorazepam (Ativan) 1 mg in 2 mls @ 2 mls/min IV Q2H PRN PRN Reason: Alcohol Withdrawal Stop: 10/16/18 23:21 Pantoprazole Sodium 40 mg/ (Dextrose) 100 mls @ 20 mls/hr IV Q5H [facility] Stop: 10/22/18 12:14 Last Admin: 09/23/18 08:02 Dose: Not Given Potassium Chloride/Sodium Chloride (Normal Saline W/20 Meq Kcl) 20 meq in 1, 000 mls @ 85 mls/hr IV .[id number] [facility] Stop: 10/22/18 11:59 Last Admin: 09/23/18 00:11 Dose: 85 mls/hr Insulin Aspart (Novolog Flexpen) 0 units SC ACHS [facility]; Protocol Stop: 10/17/18 08:29 Last Admin: 09/23/18 08:59 Dose: Not Given Insulin Glargine (Lantus Solostar Pen) 0 units SC BID [facility]; Protocol Stop: 10/19/18 08:59 Last Admin: 09/23/18 08:59 Dose: Not Given Miscellaneous (Carbohydrates For Hypoglycemia) 15 - 30 gm PO PRN PRN PRN Reason: Hypoglycemia Treatment Stop: 10/16/18 22:30 Miscellaneous Information (Consult Glycemic Management Pharmacy) 1 ea N/A DAILY PRN PRN Reason: Consult Stop: 10/16/18 22:11 Multivitamins/Minerals (Multivitamin W/ Minerals Tab) 1 tab PO QAM [facility] Stop: 10/17/18 08:59 Last Admin: 09/23/18 08:04 Dose: Not Given Nitroglycerin (Nitrostat) 0.4 mg SL UD PRN PRN Reason: Chest Pain Stop: 10/16/18 21:45 Last Admin: 09/22/18 07:34 Dose: 0.4 mg Ondansetron HCl (Zofran) 4 mg IV Q6H PRN PRN Reason: Nausea Stop: 10/16/18 21:45 Last Admin: 09/22/18 21:42 Dose: 4 mg Oxycodone HCl (Roxicodone Immediate Rel) 10 mg PO Q4H PRN PRN Reason: Severe Pain Stop: 10/07/18 07:14 Paroxetine HCl (Paxil) 20 mg PO DAILY [facility] Stop: 10/17/18 08:59 Last Admin: 09/23/18 09:01 Dose: 20 mg Sucralfate (Carafate) 1 gm PO ACHS [facility] Stop: 10/19/18 08:29 Last Admin: 09/23/18 07:59 Dose: 1 gm _ (1) Pancreatitis Acute pancreatitis complication: Chronicity: chronic Pancreatitis type: alcohol induced Qualified Code(s): K86.0 - Alcohol-induced chronic pancreatitis
[2018-09-23] MEDS: chlordiazePOXIDE HCl 25 MG CAP PO SCH ×2 (12:02→21:23)
[2018-09-23] MEDS: FAMOTIDINE 20 MG TAB PO SCH (21:24)
[2018-09-24] MEDS: HYDROmorphone INJ 1 MG/ML SYRINGE IV PRN ×2 (01:01→06:13)
[2018-09-24] MEDS: PANTOprazole 40 MG in DEXTROSE 5% 100 ML IV SCH ×2 (04:31→09:01)
[2018-09-24 06:44] LABS: Basophils # (auto) 0.02 K/uL (0-0.2); Basophils % (auto) 0.4 %; Eosinophils # (auto) 0.37 K/uL (0-0.5); Eosinophils % (auto) 7.8 %; Hemoglobin 15.2 g/dL (14.0-18.0); Lymphocytes # (auto) 1.53 K/uL (1.2-3.4); Lymphocytes % (auto) 32.1 %; Mean Corpuscular Hgb Conc 35.3 g/dL (32-36); Mean Corpuscular Volume 94.1 fL (80-100); Mean Platelet Volume 9.2 fL (7.4-10.4); Monocytes # (auto) 0.41 K/uL (0.11-0.59); Monocytes % (auto) 8.6 %; Neutrophils # (auto) 2.44 K/uL (1.4-6.5); Neutrophils % (auto) 51.1 %; Platelet Count 154 K/uL (130-400); RDW Coefficient of Variation 12.3 % (11.5-14.5); RDW Standard Deviation 41.9 fL (36.4-46.3); Red Blood Count 4.57 M/uL (4.7-6.1); White Blood Count 4.77 K/uL (4.8-10.8)
[2018-09-24 07:19] VITALS: O2SAT 94
[2018-09-24] MEDS ORDERED: HYDROmorphone INJ 0.5 MG/0.5 ML SYR IV PRN (08:27)
--- NOTE | 2018-09-24 08:33 | Pain Management Consultation ---
Date of Consultation September 24, 2018 Assessment & Plan (1) Pancreatitis: 1. Recommend consideration of drug and alcohol rehabilitation for this patient after discharge. 2. Recommend decreased IV hydromorphone dose to encourage PO oxycodone utilization. Orders written 3. Would use caution if planning on discharging this patient with oral narcotics. He has consistently mis-used opiates in the past. If opiates are provided at discharge, would recommend routine pill counts, urine drugs screening, small allotments of tablets, and a narcotic contract. 4. The patient is taking PO without significant increase in pain at this time, there is no role for interventional pain management at this time. 5. Thank you for this consultation. Please call with any questions. Acute pancreatitis complication: Chronicity: chronic Pancreatitis type: alcohol induced Qualified Code(s): K86.0 - Alcohol-induced chronic pancreatitis (2) Alcohol abuse: (3) History of substance abuse: (4) Depression: (5) Panic disorder: (6) Mood disorder: (7) Suicide attempt: (8) Intentional drug overdose: History of Present Illness Attending Physician: Jayesh Stone DO History of Present Illness 42-year-old male with history of back pain as well as pancreatitis secondary to alcohol. He reports experiencing 7/10 abdominal pain over his rightepigastrium radiating to the flank. He denies any thoracic back pain. He denies nausea/vomiting or postprandial pain associated with his abdominal pain. He finished eating a full breakfast just prior to my arrival. He has been utilizing IV hydromorphone and sporadic use of PO oxycodone for pain control. He reports better efficacy of hydromorphone. He readily states that he understands we want him using PO pain medications preferentially, but " the IV dilaudid just works better and you don't seem to understand that." He has a history of previous opiate dependence/abuse (oxycodone and hydrocodone), alcohol abuse, and prior suicidal attempts. He has been recommended to undergo structured rehabilitation for alcohol and opiates in the past. When I asked him what he intended to do to prevent recurrence of his pancreatitis in the future, he said "I guess just work with my family doctor." Pain Assessment Full Body Front + Back: 2 1. Allergies Allergy/AdvReac Type Severity Reaction Status Date / Time No Known Drug Allergies Allergy Unknown NONE Verified 09/16/18 16:39 Home Medications Home Medications Medication Instructions Recorded Confirmed Type metformin 1,000 mg PO DAILY 09/16/18 09/16/18 History pantoprazole 40 mg PO DAILY 09/16/18 09/16/18 History paroxetine HCl 20 mg PO DAILY 09/16/18 09/16/18 History Patient History Medical History DM type 2 (diabetes mellitus, type 2) (Chronic) Renae's esophagus (Chronic Unknown) "per EGD 11/23/09 " On 05/31/11 09:06 Martinez Marichuy Jose wrote "per EGD 11/23/09 " H/O acute pancreatitis (Chronic) "recurrent" Alcohol abuse (Chronic Unknown) History of substance abuse (Chronic) Depression (Chronic) Panic disorder (Chronic) Lumbar degenerative disc disease (Chronic) Suicidal ideation (Chronic) Mood disorder (Chronic) Suicide attempt (Resolved) Suicidal ideation (Resolved) Intentional drug overdose (Resolved) Mood disorder (Chronic) Depression (Chronic) Pulmonary embolism (Resolved) Abdominal pain Chest pain Hyperglycemia (Acute) Neuropathy (Acute) Surgical History H/O esophagogastroduodenoscopy (Chronic) "EGD 11/23/2009- mild gastritis, suspicious for gastroparesis, Z-line irregular EUS 02/04/2010- mild chronic pancreatitis, pronounced cholesterolosis of gallbladder, no biliary dilation or stones, probable gastroparesis EGD 10/31/2014- gastritis" S/P lumbar fusion (Resolved) L4-S1 2014 Social History Current Living Situation: Parent Feels Safe at Home: Yes Safety Concerns: Feels Safe At This Time Smoking Status: Heavy tobacco smoker Do You Dip or Chew Tobacco: Yes Hx Alcohol Use: Yes Alcohol type: beer Alcohol Intake Frequency: a few times a week Hx Substance Use: No Beliefs That Will Affect Care: None Communication Ability: Effective Review of Systems Constitutional: Negative for fever, chills, sweats Eyes: Negative for eye pain, photophobia, drainage Ear, nose, mouth, throat: Negative for ear pain, nasal congestion, mouth lesions , change in voice Respiratory: Negative for wheezing, sputum production Cardiovascular: Negative for chest pain, palpitations, calf pain Gastrointestinal: Negative for abdominal pain, belching, bloating Genitourinary: Negative for dysuria, urinary incontinence, urinary urgency Musculoskeletal: Negative for deformities Integumentary: Negative for nail changes, skin yellowing, pruritus Neurological: Negative for abnormal speech, seizure type activity Physical Exam 2 Vital Signs (Past 24 Hours): Last Vital Signs Temp 37.0 C 09/24/18 07:18 Pulse 88 09/24/18 07:18 Resp 16 09/24/18 07:18 BP 111/67 09/24/18 07:18 Pulse Ox 94 09/24/18 07:18 Physical Exam: Constitutional: Well-developed, well-nourished, healthy- appearing, normal weight Psych: Awake, alert, and oriented 3 Recent memory appears grossly intact Eyes: Pupils are equally round and reactive with normal size pupils, eyelids appear normal Ear, nose, mouth, and throat: Moist nasal and oral membranes, lips and tongues appear normal, no external ear abnormalities are noted Neck: The trachea is midline without deviation Respiratory: Normal respiratory effort without distress, no audible wheezes or rhonchi CV: Normal S1 and S2 Chest: Deferred GI/abdomen:mildly tender without guarding Musculoskeletal: Head is normocephalic and atraumatic, gait is not observed Skin: No rashes, lesions, ulcers, and duration are noted Neuro: No nystagmus noted, the tongue is midline, the patient is able to rotate their head bilaterally : Deferred Results & Data Laboratory Results Laboratory Tests 09/23/18 09/24/18 06:07 06:32 Total Bilirubin 0.5 AST 17 ALT 21 Alkaline Phosphatase 60 Total Protein 6.1 L Albumin 2.8 L Lipase 29 L Diagnostic Findings Patient: Raffi Zeng Date: 09/16/18 MR#: [id number]: 1173 KANDIS Acct ID:[id number]: Date: 1975[facility] [place] Zip: [place] [id number] Age: 42Location: 2N Sex: M Room[facility]Bed: [facility] Att Phy: Jayesh Stone DODiagnosis: ABDOMINAL PAIN Corine Phy: Dhiraj Myers D.O.Service Date: 09/19/18 Fam Phy: Dhiraj Myers D.O.Interpreting Phy: Cheng Diaz MD Admit Phy: Jed Sousa MD Ordering Phy: Jayesh Stone DO cc: ~ CT abdomen oral and IV con CT DOSE: 368.63 mGy.cm CLINICAL HISTORY: Right upper quadrant abdominal pain TECHNIQUE: Images the upper abdomen performed following administration of dilute oral contrast, and in a dynamic helical fashion during intravenous administration of 93 cc of Optiray 320. A dose lowering technique was utilized adhering to the principles of ALARA. COMPARISON STUDY: Noncontrast study dated 09/16/2018 FINDINGS: The visualized portions of the lung bases are unremarkable. No pleural effusions are visualized. There are stable lobulated low density structures at the level of the right cardiophrenic angle. The finding remains unchanged from March 2015 and likely represents a pericardial cyst. No hepatic masses are visualized. The gallbladder is surgically absent. No splenic masses are visualized. The pancreas appears somewhat atrophic. No pancreatic masses are visualized. There are no adrenal masses. There are no solid renal masses. There is no hydronephrosis. There is no evidence of abdominal aortic dilatation. There is no evidence for pathologic adenopathy. Left upper quadrant varices are again evident. There is a tiny fat-containing umbilical hernia. There is a small anterior abdominal wall lipoma adjacent to the umbilicus to the right of midline There are postsurgical changes present within the spine IMPRESSION: 1. Stable right sided pericardial cyst 2. Stable left upper quadrant varices 3. Stable pancreatic glandular atrophy 4. No evidence of pathologic adenopathy. 5. No evidence of hydronephrosis. 6. No peripancreatic fluid collections identified Medications Administered PDMP was checked and shows 2 prescriptions from 2 physicians (one a hospitalist ) and 1 pharmacy
[2018-09-24] MEDS: INSULIN GLARGINE SOLOSTAR 100 UNITS/ML 3 ML PEN SC SCH (08:57)
[2018-09-24] MEDS: INSULIN ASPART 100 UNITS/ML 3 ML PEN SC SCH (08:58)
[2018-09-24] MEDS: FOLIC ACID 1 MG TAB PO SCH (08:59)
[2018-09-24] MEDS: ACETAMINOPHEN 500 MG TAB PO SCH ×2 (08:59→11:53)
[2018-09-24] MEDS: ENOXAPARIN INJ 40 MG/0.4 ML SYR SQ SCH (09:00)
[2018-09-24] MEDS: CEROVITE ADV FORMULA TAB PO SCH (09:00)
[2018-09-24] MEDS: chlordiazePOXIDE HCl 25 MG CAP PO SCH (09:05)
[2018-09-24] MEDS: SUCRALFATE 1 GM/10 ML UDC PO SCH ×2 (09:05→11:53)
[2018-09-24] MEDS: PARoxetine HCl 20 MG TAB PO SCH (09:06)
[2018-09-24] MEDS: THIAMINE HCL 100 MG in SYRINGE 9 ML IV SCH (09:06)
--- NOTE | 2018-09-24 09:24 | Discharge Summary ---
Date of Service September 24, 2018 Admission HPI Per Admitting Provider 42-year-old male with past medical history significant for alcoholism and multiple admissions for alcoholism and pancreatitis, diabetes, seems to be noncompliant with insulin, history of alcoholic gastritis, GERD, mood disorder, history of PE as per records, chronic pain and history of narcotic abuse as per records, history of bipolar depression, ADHD status post suicide attempt presents with severe abdominal pain. The patient was here in the last week of March 2018 with the same issues and he did okay and he was discharged and he refused to go to rehab at that time and refused out patient endoscopic ultrasound for his pancreatitis at that time, but patient says since discharge, he has tried to quit drinking and he did not drink much, only here and there, but last weekend he was drinking heavily again, 12 pack of beers a day and last night he started to develop again severe abdominal pain. He could not sleep because of pain. The pain was in the epigastric area going band like to the back and it was sometimes depending on his position radiating to his chest and causing some shortness of breath. It was not getting better and he tried to eat food and it made the pain worse. As it was not getting better, he came to the ER today. Denies any fever, chills. No headache, no blurred visions, no sore throat, no cough. He says no blood in the stools, no black stools. Normal bowel and bladder movements. Lives with his mother. He was in alcohol rehab in the past. Requesting for pain medications. Pt is a 42 y/o male w hx of narcotic abuse, ongoing ETOH abuse who presented w RUQ abd pain radiating to back, associated w N/V. Hx of recurrent pancreatitis, but LFTs, and Lipase are normal. CT abd/pelvis showed pancreas atrophy and possible duodenitis but no signs of abscess or necrotic area, ductal dilation. Admission Exam Per Admitting Provider PHYSICAL EXAMINATION: GENERAL: The patient is of moderate build, not in acute distress. VITAL SIGNS: Temperature 37, pulse 110, respiratory rate 19, blood pressure 115/59, oxygen 94% on room air. HEENT: No pallor, no icterus. Pupils equal, round, and reactive to light. NECK: Supple, no neck masses seen. CARDIOVASCULAR: S1, S2 heard, regular rate and rhythm, no murmur. RESPIRATORY SYSTEM: Normal AP diameter. No accessory muscle use. No wheezing, no crackles. ABDOMEN: Soft, bowel sounds present. Diffuse tenderness and guarding present. No distention. CENTRAL NERVOUS SYSTEM: Cranial nerves II-XII grossly intact. Nonfocal. EXTREMITIES: No edema, no erythema. Principal Diagnosis This 42-year-old male presents with alcoholism and abdominal pain, found to be Duodenitis. 1. Abdominal pain sec to Alcohol induced Gastritis, Duodenitis. History of chronic alcoholism. Lipase normal. 09/22 make NPO and start IVFs, Start PPI gtt, c/o hematemesis, c/o CP, Troponins were ordered, EKG-Suspicious for pericarditis , see below 2. Alcoholism/RLS. Was in rehab in 2000 and 2015. refused rehab last admission. On alcohol withdrawal protocol, Does not want gabapentin as it worsens his restless legs. Started on Librium 25mg bid for alcohol withdrawal. 3. Diabetic ketoacidosis. The patient has diabetes. Was On Lantus seems to be noncompliant. The last HbA1c was 8.7. He was on Lantus insulin sliding scale, but it seems like 3 weeks ago, he stopped Lantus and was back on metformin. He now comes with a serum glucose of 496 and anion gap of 20 and also bicarbonate 17. Alcoholism could also playing role here. Resolved DC on Lantus and Metformin 4. Pseudohyponatremia, Resolved 5. Bipolar depression. Continue paroxetine. 6. Deep venous thrombosis prophylaxis, sequential compression devices and Lovenox. 7. CP-Cardiac enzymes all negative, EKG noted, Cards evlizz 8. History of Narcotic Abuse EGD 09/18--Normal esophagus. Mild gastritis. Mild erythema in the duodenum. Avoid alcohol and NSAIDS, PPI, H2 Mars at HS, add Carafate, GI Cocktail, Clears, CT Abd for persistent LUQ Pain. Needs one more night, still c Abd pain and N/V, Discussed coming off Dilaudid, decreased dose, and stopping EToH, 09/22 c/o CP, Cardiac w/u started. Discharge Exam ROS-No Headache, No Visual Changes, No Nausea, No Vomiting, No Fever, No Chills , No Neck Pain or Stiffness, +Chest Pain radiating to neck jaw and down his left arm, No Palpitations, No SOB, No TREJO, No Cough, No Sputum, No Wheezing, + Abdominal Pain, No Diarrhea, +Hematemesis, No Hemoptysis, No Unexpected Weight Loss, No Flank pain, No Melena, No Hematochezia, No Frequency, No Urgency, No Burning, No Hematuria, No Rashes, No Diaphoresis. Appetite is decreased, Physical Exam Gen-AAO x 3, NAD, Afebrile Head-NCAT, EOMI, PERRLA, Anicteric Sclera, No Posterior Pharyngeal Erythema Neck-Supple, No JVD, No Thyromegaly, No Masses, No LAD, No Bruits Lungs-Clear to Auscultation Bilaterally, No Rales, No Rhonchi, No Wheezing, No Crepitus Chest-No S4, +S1, +S2, No S3, No Murmurs, No Rubs, No Gallops, No Ectopy Abdomen-Soft, Bowel Sounds Present, Tender out of proportion to physical exam, Non Distended, No Hepatomegaly, No Splenomegaly, No Palpable Masses, No Rebound, No Rigidity, No Guarding Musculoskeletal-Full Range of Motion Bilaterally, No CVAT Extremities-No Cyanosis, No Clubbing, No Edema Nuero-Cranial Nerves II-XII grossly intact, Motor WNL, DTRs WNL, Strength WNL, Non Focal Psych-Normal Mood Discharge Data Allergies Allergy/AdvReac Type Severity Reaction Status Date / Time No Known Drug Allergies Allergy Unknown NONE Verified 09/16/18 16:39 Consultations 09/16/18 18:45 ED Decision to Admit Stat 09/16/18 21:46 Consult Case Management - Discharge Planning Routine 09/17/18 08:00 Consult Gastroenterology Routine 09/22/18 12:04 Consult Cardiology Routine 09/24/18 07:24 Consult Pain Management Routine Procedures Performed Operation Date: 09/18/18 08:25 Actual Procedures p Esophagogastroduodenoscopy - Margaret Makenzie Ordered Studies 09/16/18 16:43 CT abd pelvis IV con only Stat 09/19/18 08:15 CT abdomen oral and IV con Routine Hospital Course (1) Alcohol abuse: Patient came in with abdominal pain has a history of narcotic abuse. He had an EGD performed which showed alcoholic induced gastritis, while in the hospital he received IV Dilaudid as well as IV Toradol every morning complained of nausea and vomiting and abdominal pain way out of proportion to his physical exam. He complained of chest pain Dr. Olsen saw him his workup was negative including his enzymes and EKG. He is being discharged today. He was also treated for DKA as well. I checked the [facility] for [place] his last narcotic prescription was in May 2018 be sending him home on oxycodone 5 mg, 1-2 tablets every 6 as needed pain and I recommended to him that he consult with a pain specialist. This 42-year-old male presents with alcoholism and abdominal pain, found to be Duodenitis. 1. Abdominal pain sec to Alcohol induced Gastritis, Duodenitis. History of chronic alcoholism. Lipase normal. 09/22 make NPO and start IVFs, Start PPI gtt, c/o hematemesis, c/o CP, Troponins were ordered, EKG-Suspicious for pericarditis , see below 2. Alcoholism/RLS. Was in rehab in 2000 and 2015. refused rehab last admission. On alcohol withdrawal protocol, Does not want gabapentin as it worsens his restless legs. Started on Librium 25mg bid for alcohol withdrawal. 3. Diabetic ketoacidosis. The patient has diabetes. Was On Lantus seems to be noncompliant. The last HbA1c was 8.7. He was on Lantus insulin sliding scale, but it seems like 3 weeks ago, he stopped Lantus and was back on metformin. He now comes with a serum glucose of 496 and anion gap of 20 and also bicarbonate 17. Alcoholism could also playing role here. Resolved DC on Lantus and Metformin 4. Pseudohyponatremia, Resolved 5. Bipolar depression. Continue paroxetine. 6. Deep venous thrombosis prophylaxis, sequential compression devices and Lovenox. 7. CP-Cardiac enzymes all negative, EKG noted, Cards eval EGD 09/18--Normal esophagus. Mild gastritis. Mild erythema in the duodenum. Avoid alcohol and NSAIDS, PPI, H2 Mars at HS, add Carafate, GI Cocktail, Clears, CT Abd for persistent LUQ Pain. Needs one more night, still c Abd pain and N/V, Discussed coming off Dilaudid, decreased dose, and stopping EToH, 09/22 c/o CP, Cardiac w/u negative. (2) Pancreatitis: (3) Acute hyperglycemia: Total Time Total Time Spent Total Time Spent (In Minutes): 50 minutes Total Time Includes: Examination of the Patient, Discharge Planning, Medication Reconciliation and Communication With Other Providers Discharge Plan Discharge Items Patient Disposition: Home - Self-Care Reason For Visit: ABDOMINAL PAIN Discharge Diagnosis: Abdominal pain Chest pain Alcohol induced gastritis Alcohol abuse Bipolar disorder Narcotic abuse by history, most recent narcotic prescription was in May per [employer] Tobacco abuse Pancreatitis DKA Type 2 diabetes Renae's esophagus Depression History of suicide ideation History of drug overdose Mood disorder History of PE Discharge Goals: Improve disease control and Improve nutritional status Activity: Resume your previous activity Lifting: Gradually increase as tolerated Bathing: No limitations Sexual Activity: When tolerated Exercise/Sports: None and Gradually increase as tolerated Driving/Machine Use: No limitations Driving/Machine Use Comment: Do not drive while taking narcotics Weightbearing: Left weightbearing and Right weightbearing Non-emergency contact: Primary Care Provider Call non-emergency contact if: you have any medication questions Follow-up/Referrals: Ino Alvares [Nurse Practitioner] - Magno Sampson MD, PATRICIO [Physician] - (Pain Eval) Homero Mullen [Physician] - Diet: Carb Consistent or DM2 and Heart Healthy Addtl Provider Instructions: Needs referral for a pain specialist outpatient Prescriptions: New acetaminophen [Pain Reliever] 500 mg Tablet 500 mg PO Q4HWA Qty: 100 RF: 0 oxycodone 5 mg Tablet 5 mg PO Q4H PRN (Reason: pain) Qty: 30 RF: 0 insulin glargine [Lantus Solostar U-100 Insulin] 100 unit/mL (3 mL) insulin pen 15 units SQ BID Qty: 15 RF: 0 Continue paroxetine HCl 20 mg tablet 20 mg PO DAILY RF: 0 pantoprazole 40 mg tablet,delayed release (DR/EC) 40 mg PO DAILY RF: 0 metformin 500 mg tablet extended release 24 hr 1,000 mg PO DAILY RF: 0 Stand-Alone Forms: [facility] Discharge Orders: Discharge Order (Routine); Ordered 09/24/18 Ordered By: Jayesh Stone Admission Data Admit Date/Time: 09/16/18 20:05 Attending Provider: Jayesh Stone Admit Provider: Jed Sousa Primary Care Provider: Dhiraj Myers Other Providers: Jed Sousa ; Ino Alvares ; Dami Luo ; Maryjane Panchal ; Homero Mullen ; Deborah Molina ; Sanjay Bass ; Jaymie Hartmann ; Faizan Garsai ; Colton Moreland ; Christina Gill ; Margaret Banegas ; Marika Parrish ; So Prakash ; Camila Gentile ; Raffi Olsen ; Magno Sampson Service: Telemetry Medical Other Interventions: Discharge Summary Assessment (RN) Last Done: 09/18/18 13:50
[2018-09-24] MEDS ORDERED: OXYCODONE/ACETAMINOPHEN 10-325 TAB PO STA (11:16)
[2018-09-24 11:19] VITALS: BP 111/67; PULSE 88; TEMP 98.6
[2018-09-24] MEDS: NSS + 20MEQ KCL 20 MEQ/1,000 ML BAG IV SCH (11:32)
[2018-09-24] MEDS ORDERED: INSULIN GLARGINE SOLOSTAR 100 UNITS/ML 3 ML PEN SC SCH (21:00)
== END 2018-09-24 12:15 | disposition home or self-care (01) | DRG 391 ==
LOC: ED 15:44 → 2N 20:05

== ENCOUNTER 2019-09-24 01:02 | Inpatient (IN) ==
[2019-09-24] MEDS ORDERED: SODIUM CHLORIDE 0.9% 1000ML 1,000 ML IV ONE ×2 (01:07→02:01)
[2019-09-24] MEDS ORDERED: MULTI-VITAMIN INFUSION 10 ML, THIAMINE HCL 100 MG, FOLIC ACID 1 MG in SODIUM CHLORIDE 0... IV ONE (01:07)
[2019-09-24] MEDS ORDERED: HYDROmorphone INJ 1 MG/ML SYRINGE IV STA (01:07)
[2019-09-24] MEDS ORDERED: ONDANSETRON INJ 2 MG/ML 2 ML VIAL IV STA (01:07)
[2019-09-24 01:34] LABS: Basophils # (auto) 0.02 K/uL (0-0.2); Basophils % (auto) 0.4 %; Eosinophils # (auto) 0.26 K/uL (0-0.5); Eosinophils % (auto) 4.8 %; Hematocrit (blood only) 45.1 % (42-52); Hemoglobin 16.1 g/dL (14.0-18.0); Immature Granulocytes # (auto) 0.01 K/uL (0.00-0.02); Immature Granulocytes % (auto) 0.2 %; Lymphocytes # (auto) 1.99 K/uL (1.2-3.4); Lymphocytes % (auto) 36.7 %; Mean Corpuscular Hemoglobin 31.8 pg (25-34); Mean Corpuscular Hgb Conc 35.7 g/dL (32-36); Mean Platelet Volume 9.9 fL (7.4-10.4); Monocytes % (auto) 5.5 %; Neutrophils # (auto) 2.84 K/uL (1.4-6.5); Neutrophils % (auto) 52.4 %; Platelet Count 188 K/uL (130-400); RDW Coefficient of Variation 12.5 % (11.5-14.5); RDW Standard Deviation 39.7 fL (36.4-46.3); Red Blood Count 5.07 M/uL (4.7-6.1); White Blood Count 5.42 K/uL (4.8-10.8)
[2019-09-24 01:47] LABS: Partial Thromboplastin Ratio 0.9; Partial Thromboplastin Time 24.1 Seconds (21.0-31.0); Prothrombin Time 10.7 Seconds (9.0-12.0)
[2019-09-24] MEDS ORDERED: MoRPHine SULFATE 10 MG/ML CARP/VIAL IV STA (01:47)
[2019-09-24] MEDS ORDERED: LORazepam 2 MG/4 ML VIAL IV STA (01:47)
[2019-09-24 01:56] LABS: Alanine Aminotransferase 23 U/L (12-78); Albumin Level 3.7 gm/dl (3.4-5.0); Amylase 22 U/L (25-115); Aspartate Aminotransferase 8 U/L (15-37); BUN Creatinine Ratio 7.5 (10-20); Bilirubin Direct 0.1 mg/dl (0-0.2); Bilirubin,Total 0.5 mg/dl (0.2-1); Blood Urea Nitrogen 8 mg/dl (7-18); Calcium 9.1 mg/dl (8.5-10.1); Carbon Dioxide 26 mmol/L (21-32); Chloride 103 mmol/L (98-107); Creatinine Clr Calc Pharmacy 110.6 ml/min; Est GFR (African American) 97.8; Est GFR (Non-African American) 84.3; Glucose 312 mg/dl (70-99); Lipase 38 U/L (73-393); Potassium 3.6 mmol/L (3.5-5.1); Sodium 137 mmol/L (136-145)
[2019-09-24 01:57] LABS: Alkaline Phosphatase 95 U/L (45-117); Total Protein 7.8 gm/dl (6.4-8.2); Troponin I < 0.015 ng/ml (0-0.045)
[2019-09-24 02:06] LABS: Beta-Hydroxybutyrate 2.22 mg/dl (0.2-2.81)
[2019-09-24] MEDS ORDERED: IOVERSOL 100ml IV PRN (02:37)
[2019-09-24 02:38] LABS: Appearance Urine Clear (Clear); Bilirubin Urine Negative (Negative); Blood Urine Negative (Negative); Color Urine Yellow; Glucose Urine UA 3+ (Negative); Ketones Urine Negative (Negative); Leukocyte Esterase Urine Negative (Negative); Nitrite Urine Negative (Negative); Protein Urine Negative (Negative); Specific Gravity Urine 1.016 (1.000-1.030); Urobilinogen Urine Negative (Negative)
[2019-09-24] MEDS ORDERED: INSULIN GLARGINE SOLOSTAR 100 UNITS/ML 3 ML PEN SC STA (03:13)
[2019-09-24] MEDS ORDERED: LACTATED RINGER'S 1,000 ML IV ONE ×2 (03:18→05:30)
[2019-09-24] MEDS ORDERED: OXYCODONE HCL IR 5 MG TAB (IMMEDIATE RELEASE) PO PRN (03:18)
[2019-09-24 03:37] LABS: Amphetamines+Metham, Urine Neg (Neg); Barbiturates, Urine Neg (Neg); Benzodiazepine, Urine Neg (Neg); Cocaine, Urine Neg (Neg); MDMA (Ecstacy), Urine Neg (Neg); Methadone, Urine Neg (Neg); Opiate, Urine Pos (Neg); Phencyclidine, Urine Neg (Neg)
[2019-09-24] MEDS ORDERED: KETOROLAC TROMETHAMINE 15 MG/ML VIAL IV ONE (03:43)
[2019-09-24] MEDS ORDERED: GABAPENTIN 800 MG TAB PO STA (03:53)
--- NOTE | 2019-09-24 04:05 | History & Physical Report ---
Date of Service September 24, 2019 Assessment & Plan (1) Alcohol withdrawal: Abdominal pain secondary to acute gastroenteritis rule out C. difficile hx chronic pain/narcotic abuse as per records/terminated medication agreement ro cdif ADD/mood disorder as per records, at baseline DM2 on oral meds, suboptimal control as of recent outpatient hemoglobin A1c of 7.8, August 2019 History of PE as per records Medical telemetry DT precautions Judicious narcotic use given history drug abuse as per records Stool C. difficile Basal insulin, ISS BG goal [id number], carb count coverage DVT prophylaxis per Lovenox subcu Full code Text document was generated using [employer] voice recognition software. It may contain grammatical or spelling errors. Kindly contact undersigned for clarification of any documentation item in question. History of Present Illness Chief Complaint: Abdominal pain Primary Care Provider: Dhiraj Myers, History is obtained from the patient and records. Medical history is significant for ADD/mood disorder as per records, DM2 on oral meds, GERD, recurrent pancreatitis, alcohol abuse as per records. History of PE as per records, history of chronic pain. History narcotic abuse as per records/terminated medication agreement Recent confinement September 2017 for DKA, alcohol abuse. 1 week history of watery diarrhea symptoms, no fever, no chills. No known sick contacts, no recent travel, no recent antibiotic Rx. 2 days history of worsening central abdominal pain going to his chest with juani rtness of breath reminiscent of pancreatitis attack. Patient had some alcohol after being off for weeks. Subsequent emesis symptoms. Intractable abdominal pain at the ER. Patient stating that "only Dilaudid 2 mg IV every 2 hours for 2 days works for my abdominal pain when I am here." MEDICAL HISTORY: As above. SURGERIES: Appendectomy, cholecystectomy, vascular device placement. Back surg kan FAMILY HISTORY: There is a family history of mood disorder. Alcoholism, heart disease. 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 Allerg ies Allergy/AdvReac Type Severity Reaction Status Date / Time No Known Allergies Allergy Verified 09/24/19 02:51 Home Medications Home Medications Medication Instructions Recorded Confirmed Type pantoprazole 40 mg PO DAILY 09/16/18 09/24/19 History paroxetine HCl 20 mg PO DAILY 09/16/18 09/24/19 History acetaminophen [Pain Reliever] 1,000 mg PO Q6H PRN 10/01/18 09/24/19 History gabapentin 300 mg PO HS 09/24/19 09/24/19 History Past Med/Surg History Medical History Abdominal pain Acute hyperglycemia (Acute) Alcohol abuse (Chronic Unknown) Alcohol abuse (Acute) Renae's esophagus (Chronic Unknown) "per EGD 11/23/09 " On 05/31/11 09:06 Martinez Jose wrote "per EGD 11/23/09 " Chest pain Depression (Chronic) Depression (Chronic) DM type 2 (diabetes mellitus, type 2) (Chronic) Encounter for alcohol abuse counseling and surveillance (Acute) Encounter for pre-operative examination Encounter for tobacco use cessation counseling (Acute) H/O acute pancreatitis (Chronic) "recurrent" History of substance abuse (Chronic) Hyperglycemia (Acute) Intentional drug overdose (Resolved) Lumbar degenerative disc disease (Chronic) Mood disorder (Chronic) Mood disorder (Chronic) Neuropathy (Acute) Pancreatitis (Acute) Panic disorder (Chronic) Pulmonary embolism (Resolved) Suicidal ideation (Chronic) Suicidal ideation (Resolved) Suicide attempt (Resolved) Surgical History H/O esophagogastroduodenoscopy (Chronic) "EGD 11/23/2009- mild gastritis, suspicious for gastroparesis, Z-line irregular EUS 02/04/2010- mild chronic pancreatitis, pronounced cholesterolosis of gallbladder, no biliary dilation or stones, probable gastroparesis EGD 10/31/2014- gastritis" S/P lumbar fusion (Resolved) L4-S1 2014 Family History Other No significant family history Social History Preferred Language: Lithuanian Communication Ability: Effective Machine Engraver Required: No Beliefs That Will Affect Care: None Current Living Situation: Family Current Living Situation Comment: with mother Other Information That Helps Us Care for You: No Feels Safe at Home: Yes Safety Concerns: Feels Safe At This Time Smoking Status: Never smoker Tobacco Type: smokeless tobacco ; Do You Dip or Chew Tobacco: Yes ; Second Hand Exposure: Yes ; Hx Alcohol Use: Yes Alcohol type: beer Hx Substance Use: No Review of Systems Review of Systems: As per HPI, all 10 systems reviewed, all other ROS negative Physical Exam Physical Exam: GENERAL: Intoxicated, looks older than stated age, no respiratory distress, alcoholic fetor, obese SKIN: Normal color, warm HEENT: Alopecia, [place] palpebral conjunctivae, no ptosis, dry buccal mucosa, poor dentition NECK : Supple, short neck, no tenderness CHEST : CTA, no tenderness HEART : Tachycardic , no obvious murmurs ABDOMEN: Some distention, epigastric tenderness EXTREMITIES : No LE swelling/tenderness, no other conspicuous deformities noted NEUROLOGIC : Coherent, no facial asymmetry, no other gross focality Results & Data Vital Signs (Past 12 Hours) Vital Signs Temp Pulse Pulse Resp BP BP Pulse Ox 09/24/19 03:30 118 H 20 121/76 99 09/24/19 02:59 122 H 16 96/61 L 94 09/24/19 02:02 105 H 16 94/66 L 98 09/24/19 01:24 111 H 22 141/85 H 92 09/24/19 01:04 36.8 C 108 H 20 133/86 95 Laboratory Results Laboratory Results WBC 5.42 K/uL (4.8-10.8) 09/24/19 01:17 RBC 5.07 M/uL (4.7-6.1) 09/24/19 01:17 Hgb 16.1 g/dL (14.0-18.0) 09/24/19 01:17 Hct 45.1 % (42-52) 09/24/19 01:17 MCV 89.0 fL (80-100) 09/24/19 01:17 MCH 31.8 pg (25-34) 09/24/19 01:17 MCHC 35.7 g/dL (32-36) 09/24/19 01:17 RDW Std Deviation 39.7 fL (36.4-46.3) 09/24/19 01:17 RDW Coeff of Gucci 12.5 % (11.5-14.5) 09/24/19 01:17 Plt Count 188 K/uL (130-400) 09/24/19 01:17 MPV 9.9 fL (7.4-10.4) 09/24/19 01:17 Immature Gran % (Auto) 0.2 % 09/24/19 01:17 Neut % (Auto) 52.4 % 09/24/19 01:17 Lymph % (Auto) 36.7 % 09/24/19 01:17 [place] % (Auto) 5.5 % 09/24/19 01:17 Eos % (Auto) 4.8 % 09/24/19 01:17 Baso % (Auto) 0.4 % 09/24/19 01:17 Immature Gran # (Auto) 0.01 K/uL (0.00-0.02) 09/24/19 01:17 Neut # (Auto) 2.84 K/uL (1.4-6.5) 09/24/19 01:17 Lymph # (Auto) 1.99 K/uL (1.2-3.4) 09/24/19 01:17 [place] # (Auto) 0.30 K/uL (0.11-0.59) 09/24/19 01:17 Eos # (Auto) 0.26 K/uL (0-0.5) 09/24/19 01:17 Baso # (Auto) 0.02 K/uL (0-0.2) 09/24/19 01:17 PT 10.7 Seconds (9.0-12.0) 09/24/19 01:17 INR 1.0 (0.9-1.1) 09/24/19 01:17 APTT 24.1 Seconds (21.0-31.0) 09/24/19 01:17 PTT Ratio 0.9 09/24/19 01:17 Sodium 137 mmol/L (136-145) 09/24/19 01:17 Potassium 3.6 mmol/L (3.5-5.1) 09/24/19 01:17 Chloride 103 mmol/L (98-107) 09/24/19 01:17 Carbon Dioxide 26 mmol/L (21-32) 09/24/19 01:17 Anion Gap 8.0 (3-11) 09/24/19 01:17 BUN 8 mg/dl (7-18) 09/24/19 01:17 Creatinine 1.06 mg/dl (0.6-1.4) 09/24/19 01:17 Est Cr Clr Drug Dosing 110.6 ml/min 09/24/19 01:17 Est GFR ( Amer) 97.8 09/24/19 01:17 Est GFR (Non-Af Amer) 84.3 09/24/19 01:17 BUN/Creatinine Ratio 7.5 (10-20) L 09/24/19 01:17 Glucose 312 mg/dl (70-99) H* 09/24/19 01:17 Lactate 5.4 mmol/L (0.4-2.0) H* 09/24/19 01:17 Calcium 9.1 mg/dl (8.5-10.1) 09/24/19 01:17 Magnesium 2.0 mg/dl (1.8-2.4) 09/24/19 01:17 Total Bilirubin 0.5 mg/dl (0.2-1) 09/24/19 01:17 Direct Bilirubin 0.1 mg/dl (0-0.2) 09/24/19 01:17 AST 8 U/L (15-37) L 09/24/19 01:17 ALT 23 U/L (12-78) 09/24/19 01:17 Alkaline Phosphatase 95 U/L (45-117) 09/24/19 01:17 Troponin I < 0.015 ng/ml (0-0.045) 09/24/19 01:17 Total Protein 7.8 gm/dl (6.4-8.2) 09/24/19 01:17 Albumin 3.7 gm/dl (3.4-5.0) 09/24/19 01:17 Amylase 22 U/L (25-115) L 09/24/19 01:17 Lipase 38 U/L (73-393) L 09/24/19 01:17 Beta-Hydroxybutyric Acd 2.22 mg/dl (0.2-2.81) 09/24/19 01:17 Urine Color Yellow 09/24/19 02:30 Urine Appearance Clear (Clear) 09/24/19 02:30 Urine pH 5.0 (4.5-7.5) 09/24/19 02:30 Ur Specific [place] 1.016 (1.000-1.030) 09/24/19 02:30 Urine Protein Negative (Negative) 09/24/19 02:30 Urine Glucose (UA) 3+ (Negative) H 09/24/19 02:30 Urine Ketones Negative (Negative) 09/24/19 02:30 Urine Blood Negative (Negative) 09/24/19 02:30 Urine Nitrite Negative (Negative) 09/24/19 02:30 Urine Bilirubin Negative (Negative) 09/24/19 02:30 Urine Urobilinogen Negative (Negative) 09/24/19 02:30 Ur Leukocyte Esterase Negative (Negative) 09/24/19 02:30 Urine Opiates Screen Pos (Neg) H 09/24/19 02:30 Ur Methadone, Qual Neg (Neg) 09/24/19 02:30 Urine Barbiturates Neg (Neg) 09/24/19 02:30 Ur Phencyclidine (PCP) Neg (Neg) 09/24/19 02:30 U Amphetamin/Meth Scrn Neg (Neg) 09/24/19 02:30 MDMA (Ecstasy) Screen Neg (Neg) 09/24/19 02:30 U Benzodiazepines Scrn Neg (Neg) 09/24/19 02:30 Ur Cocaine Metabolite Neg (Neg) 09/24/19 02:30 U Marijuana (THC) Screen Neg (Neg) 09/24/19 02:30 Ethyl Alcohol mg/dL 197.0 mg/dl (0-3) H 09/24/19 01:[address] abdomen pelvis initial read: Focal attenuation liver segment posteriorly measuring 2.1 x 0.8 cm. Pancreatic atrophy. Mild nonspecific perinephric stranding bilaterally. Small fat- containing umbilical hernia Chest x-ray as per my interpretation no congestion EKG as per my interpretation : Rate 105, sinus tachycardia, normal axis, T wave flattening septal leads Code Status & VTE Plan VTE Prophylaxis Plan VTE Prophylaxis will be ordered: Yes
[2019-09-24] MEDS ORDERED: RASPBERRY SYRUP 5 ML UDP PO STA (04:14)
[2019-09-24] MEDS ORDERED: VANCOMYCIN HCL 125 MG/2.5ML SOLN PO STA (04:14)
[2019-09-24] MEDS ORDERED: DEXTROSE 50% 50 ML SYRINGE IV PRN (04:48)
[2019-09-24] MEDS ORDERED: GLUCAGON FOR INJ 1 MG VIAL SQ PRN (04:48)
[2019-09-24] MEDS ORDERED: GABAPENTIN 1200MG ALCOHOL WITHDRAWAL LOAD PO STA (04:48)
[2019-09-24] MEDS ORDERED: GLUCOSE 40% GEL 15 GM TUBE PO PRN (04:48)
[2019-09-24] MEDS ORDERED: KETOROLAC TROMETHAMINE 15 MG/ML VIAL IV PRN (04:48)
[2019-09-24] MEDS ORDERED: LORazepam 2 MG/4 ML VIAL IV PRN (04:48)
[2019-09-24] MEDS ORDERED: CARBOHYDRATES FOR HYPOGLYCEMIA PO PRN (04:48)
[2019-09-24] MEDS ORDERED: PROMETHAZINE HCL 12.5 MG in SODIUM CHLORIDE 0.9% 50 ML IV PRN (04:48)
[2019-09-24] MEDS ORDERED: LORazepam 3 MG/6 ML VIAL IV PRN (04:48)
[2019-09-24] MEDS ORDERED: GLUCOSE 10 TABS/TUBE PO PRN (04:48)
[2019-09-24] MEDS ORDERED: ATIVAN IV ALCOHOL WITHDRAWL IV PRN (04:48)
[2019-09-24] MEDS ORDERED: ACETAMINOPHEN 325 MG TAB PO PRN (04:48)
[2019-09-24] MEDS: LORazepam 1 MG/2 ML VIAL IV PRN (05:16)
[2019-09-24] MEDS: INSULIN ASPART 100 UNITS/ML 3 ML PEN SC SCH ×4 (05:57→20:08)
--- NOTE | 2019-09-24 06:08 | XRay Report ---
XR chest 1V portable CLINICAL HISTORY: low o2 dyspnea COMPARISON STUDY: 10/01/2018 FINDINGS: The bones soft tissues and hemidiaphragms are normal. The cardiomediastinal silhouette is n ormal. The lungs are clear. The pulmonary vasculature is normal. IMPRESSION: Negative chest. ACT 112: Negative or not required by law. The above report was generated using voice recognition software. It may contain grammatical, syntax or spelling errors. Electronically signed by: Radu Fischer M.D. 09/24/2019 6:06 AM
--- NOTE | 2019-09-24 06:13 | Emergency Department Note ---
Entered by Katarina Rose acting as a scribe for ED Provider Note Name: RIKY MELTON Age: 43 Arrives Via: Ambulance Informant: Patient CC: abdominal pain HPI: 43M arrives for evaluation of abdominal pain that started around 14:00 today. The patient also complains of intermittent nausea and vomiting. He rates his pain at a 7 and states that it radiates through to his back. He was given 200 mg Fentanyl and 4 mg Zofran in the ambulance, which resulted in mild improvement of pain. The patient states that his pain is worse with movement, and better with rest. The patient notes that he had 3 or 4 beers today. His last episode of pancreatitis was several years ago. He denies head trauma, drug use, and smoking. He reports a history of cholecystectomy and appendectomy. ROS: See above HPI for pertinent positives & negatives. A total of 10 systems reviewed and were otherwise negative. 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 Smells of alcohol. Dehydrated appearing. EYES: No scleral icterus, unremarkable pupils. ENT: Tobacco chew in mouth. Mucous membranes dry, no nasal congestion. NECK: No masses appreciated, nomeningismus, trachea is midline. RESPIRATORY: No dyspnea. Clear to auscultation and equal bilaterally. No wheeze, no rhonchi. CARDIOVASCULAR: Tachycardic. Regular rhythm.No murmurs, rubs, gallops appreciated. GASTROINTESTINAL: Exquisite epigastric tenderness to palpation. Abdomen soft, no peritonitis.Bowel sounds positive.No masses appreciated. BACK: No midline tenderness, no CVA tenderness EXTREMITIES: Normal motion all extremities, no cyanosis, no edema. NEUROLOGIC: Alert and oriented, no acute motor or sensory deficits, no focal weakness, cranial nerves grossly intact. SKIN: No rash, no jaundice, no diaphoresis. ED Course: Prior Medical Record, Triage/Nursing Notes, Medications, Allergies reviewed by Me Vital Signs: reviewed and remarkable for Tachy Labs:Reviewed and remarkable for +lactic acidosis Interventions: saline lock, 3 L NSS Bolus (1 of which banana bag), dilaudid 1mg IV, morphine 10mg IV, ativan 2mg IV Imaging:[facility] Radiologist interpretation reviewed by me: CT abdo pelv with IV contrast: no acute findings, liver mass noted which may be artifact vs other EKG:Per My Interpretation: Indication Epigastric Pain: Sinus Tach 103 bpm, qtc 434. No Ectopy. No Ischemia. Compared to EKG 10/01/18, no significant changes other than increased rate Reassessments/Times: 0106: Past medical records reviewed. The patient was evaluated in room C02B. A complete history and physical exam was performed. 0256: I spoke to Dr. Enamorado, [facility] hospitalist, who agreed to take over care of the patient. The patient is agreeable with this and understands the treatment plan. He will be further evaluated. Blood pressure:Normal.No Referral necessary Disposition:hospitalization Differentials:Differential diagnosis includes: appendicitis, diverticulitis, PUD, biliary pathology, UTI, pancreatitis, obstruction, mesenteric ischemia, aortic pathology, infections, inflammatory bowel disease, renal colic, as well as others were entertained. Medical Decision Makin yr old male with history alcoholism, pancreatitis, dmii amongst others arrives in quite some distress with severe epigastric pain after drinking alcohol all day. Symptoms consistnet with pancreatitis. Similar to previous episodes Lipase normal though this is likely secondary to burnt out pancrease. He is very uncomfortably requiring several rounds narcotics by both EMS and then here. Dry appearing and fluids started on arrival and with elevated LA full 30ml/kg IV fluids given here with banana bag included. He is intoxicated though already seems agitated and tachy thus IV ativan given for possible early withdrawal. Lactic acid > 4 though no fever nor leukocytosis and I do not find any clear evidence of infection. Suspect LA elevation secondary to pancreatitis, dehydration and alcoholism. Will hold abx given no clear infection at this time. Hospitalist in to evaluate further. Impression: Pancreatitis Lactic acidosis Intractable abdominal pain Critical Care Time: I have personally spent 30 minutes of critical care time in the direct management of this patient. Acute Pancreatitis with Severe Lactic Acidosis and requiring fluid resuscitation and extensive work-up. This was a life/limb threatening event. This 30 minutes is in excess of all separately billable proc edures. The scribe's documentation has been prepared under my direction and personally reviewed by me in its entirety. I confirm that the note above accurately reflects all work, treatment, procedures, and medical decision making performed by me. Jose Clemente MD Impression & Plan Pancreatitis, Lactic acidosis, Intractable abdominal pain Past Med/Surg History Medical History Abdominal pain Acute hyperglycemia (Acute) Alcohol abuse (Chronic Unknown) Alcohol abuse (Acute) Renae's esophagus (Chronic Unknown) "per EGD 11/23/09 " On 05/31/11 09:06 Martinez Jose wrote "per EGD 11/23/09 " Chest pain Depression (Chronic) Depression (Chronic) DM type 2 (diabetes mellitus, type 2) (Chronic) Encounter for alcohol abuse counseling and surveillance (Acute) Encounter for pre-operative examination Encounter for tobacco use cessation counseling (Acute) H/O acute pancreatitis (Chronic) "recurrent" History of substance abuse (Chronic) Hyperglycemia (Acute) Intentional drug overdose (Resolved) Lumbar degenerative disc disease (Chronic) Mood disorder (Chronic) Mood disorder (Chronic) Neuropathy (Acute) Pancreatitis (Acute) Panic disorder (Chronic) Pulmonary embolism (Resolved) Suicidal ideation (Chronic) Suicidal ideation (Resolved) Suicide attempt (Resolved) Surgical History H/O esophagogastroduodenoscopy (Chronic) "EGD 11/23/2009- mild gastritis, suspicious for gastroparesis, Z-line irregular EUS 02/04/2010- mild chronic pancreatitis, pronounced cholesterolosis of gallbladder, no biliary dilation or stones, probable gastroparesis EGD 10/31/2014- gastritis" S/P lumbar fusion (Resolved) L4-S1 2014 Family History Other No significant family history Social History Preferred Language: Kittitian Communication Ability: Effective Trailer Chief Required: No Beliefs That Will Affect Care: None Current Living Situation: Family Current Living Situation Comment: with mother Other Information That Helps Us Care for You: No Feels Safe at Home: Yes Safety Concerns: Feels Safe At This Time Smoking Status: Never smoker Tobacco Type: smokeless tobacco ; Do You Dip or Chew Tobacco: Yes ; Second Hand Exposure: Yes ; Hx Alcohol Use: Yes Alcohol type: beer Hx Substance Use: No Results & Data Vital Signs Vital Signs - 24 hr 09/24/19 01:04 09/24/19 01:24 09/24/19 02:02 Temperature 36.8 C Temperature Source Oral Pulse Rate 108 H Pulse Rate [Finger] 111 H 105 H Respiratory Rate 20 22 16 Respiratory Effort / Characteristics Non-Labored Spontaneous Non-Labored Spontaneous Respiratory Depth Normal Blood Pressure 133/86 Blood Pressure [Right Arm] 141/85 H 94/66 L Blood Pressure Mean 101 Blood Pressure Mean [Right Arm] 103 75 Pulse Oximetry 95 92 98 Oxygen Delivery Method Room Air Room Air Nasal Cannula Oxygen Flow Rate 2 Sepsis Action Taken by Nursing No Action Required 09/24/19 02:59 09/24/19 03:30 Temperature Temperature Source Pulse Rate Pulse Rate [Finger] 122 H 118 H Respiratory Rate 16 20 Respiratory Effort / Characteristics Non-Labored Spontaneous Respiratory Depth Normal Blood Pressure Blood Pressure [Right Arm] 96/61 L 121/76 Blood Pressure Mean Blood Pressure Mean [Right Arm] 72 91 Pulse Oximetry 94 99 Oxygen Delivery Method Nasal Cannula Nasal Cannula Oxygen Flow Rate 2 2 Sepsis Action Taken by [facility] Medications Current Medication List: was personally reviewed by me Laboratory Data Attestation: I reviewed the patient's lab results. Result diagrams: 09/24/19 01:17 09/24/19 01:17 Lab Results 09/24/19 09/24/19 09/24/19 Range/Units 01:17 01:17 01:17 WBC (4.8-10.8) K/uL RBC (4.7-6.1) M/uL Hgb (14.0-18.0) g/dL Hct (42-52) % MCV (80-100) fL MCH (25-34) pg MCHC (32-36) g/dL RDW Std Deviation (36.4-46.3) fL RDW Coeff of Gucci (11.5-14.5) % Plt Count (130-400) K/uL MPV (7.4-10.4) fL Immature Gran % (Auto) % Neut % (Auto) % Lymph % (Auto) % [place] % (Auto) % Eos % (Auto) % Baso % (Auto) % Immature Gran # (Auto) (0.00-0.02) K/uL Neut # (Auto) (1.4-6.5) K/uL Lymph # (Auto) (1.2-3.4) K/uL [place] # (Auto) (0.11-0.59) K/uL Eos # (Auto) (0-0.5) K/uL Baso # (Auto) (0-0.2) K/uL PT 10.7 (9.0-12.0) Seconds INR 1.0 (0.9-1.1) APTT 24.1 (21.0-31.0) Seconds PTT Ratio 0.9 Sodium 137 (136-145) mmol/L Potassium 3.6 (3.5-5.1) mmol/L Chloride 103 (98-107) mmol/L Carbon Dioxide 26 (21-32) mmol/L Anion Gap 8.0 (3-11) BUN 8 (7-18) mg/dl Creatinine 1.06 (0.6-1.4) mg/dl Est Cr Clr Drug Dosing 110.6 ml/min Est GFR ( Amer) 97.8 Est GFR (Non-Af Amer) 84.3 BUN/Creatinine Ratio 7.5 L (10-20) Glucose 312 H* (70-99) mg/dl Lactate (0.4-2.0) mmol/L Calcium 9.1 (8.5-10.1) mg/dl Magnesium 2.0 (1.8-2.4) mg/dl Total Bilirubin 0.5 (0.2-1) mg/dl Direct Bilirubin 0.1 (0-0.2) mg/dl AST 8 L (15-37) U/L ALT 23 (12-78) U/L Alkaline Phosphatase 95 (45-117) U/L Troponin I < 0.015 (0-0.045) ng/ml Total Protein 7.8 (6.4-8.2) gm/dl Albumin 3.7 (3.4-5.0) gm/dl Amylase 22 L (25-115) U/L Lipase 38 L (73-393) U/L Beta-Hydroxybutyric Acd 2.22 (0.2-2.81) mg/dl Procalcitonin (0-0.5) ng/ml TSH (0.300-4.500) uIu/ml Urine Color Urine Appearance (Clear) Urine pH (4.5-7.5) Ur Specific [place] (1.000-1.030) Urine Protein (Negative) Urine Glucose (UA) (Negative) Urine Ketones (Negative) Urine Blood (Negative) Urine Nitrite (Negative) Urine Bilirubin (Negative) Urine Urobilinogen (Negative) Ur Leukocyte Esterase (Negative) Urine Opiates Screen (Neg) Ur Methadone, Qual (Neg) Urine Barbiturates (Neg) Ur Phencyclidine (PCP) (Neg) U Amphetamin/Meth Scrn (Neg) MDMA (Ecstasy) Screen (Neg) U Benzodiazepines Scrn (Neg) Ur Cocaine Metabolite (Neg) U Marijuana (THC) Screen (Neg) Ethyl Alcohol mg/dL 197.0 H (0-3) mg/dl 09/24/19 09/24/19 09/24/19 Range/Units 01:17 01:17 02:30 WBC 5.42 (4.8-10.8) K/uL RBC 5.07 (4.7-6.1) M/uL Hgb 16.1 (14.0-18.0) g/dL Hct 45.1 (42-52) % MCV 89.0 (80-100) fL MCH 31.8 (25-34) pg MCHC 35.7 (32-36) g/dL RDW Std Deviation 39.7 (36.4-46.3) fL RDW Coeff of Gucci 12.5 (11.5-14.5) % Plt Count 188 (130-400) K/uL MPV 9.9 (7.4-10.4) fL Immature Gran % (Auto) 0.2 % Neut % (Auto) 52.4 % Lymph % (Auto) 36.7 % [place] % (Auto) 5.5 % Eos % (Auto) 4.8 % Baso % (Auto) 0.4 % Immature Gran # (Auto) 0.01 (0.00-0.02) K/uL Neut # (Auto) 2.84 (1.4-6.5) K/uL Lymph # (Auto) 1.99 (1.2-3.4) K/uL [place] # (Auto) 0.30 (0.11-0.59) K/uL Eos # (Auto) 0.26 (0-0.5) K/uL Baso # (Auto) 0.02 (0-0.2) K/uL PT (9.0-12.0) Seconds INR (0.9-1.1) APTT (21.0-31.0) Seconds PTT Ratio Sodium (136-145) mmol/L Potassium (3.5-5.1) mmol/L Chloride (98-107) mmol/L Carbon Dioxide (21-32) mmol/L Anion Gap (3-11) BUN (7-18) mg/dl Creatinine (0.6-1.4) mg/dl Est Cr Clr Drug Dosing ml/min Est GFR ( Amer) Est GFR (Non-Af Amer) BUN/Creatinine Ratio (10-20) Glucose (70-99) mg/dl Lactate 5.4 H* (0.4-2.0) mmol/L Calcium (8.5-10.1) mg/dl Magnesium (1.8-2.4) mg/dl Total Bilirubin (0.2-1) mg/dl Direct Bilirubin (0-0.2) mg/dl AST (15-37) U/L ALT (12-78) U/L Alkaline Phosphatase (45-117) U/L Troponin I (0-0.045) ng/ml Total Protein (6.4-8.2) gm/dl Albumin (3.4-5.0) gm/dl Amylase (25-115) U/L Lipase (73-393) U/L Beta-Hydroxybutyric Acd (0.2-2.81) mg/dl Procalcitonin (0-0.5) ng/ml TSH (0.300-4.500) uIu/ml Urine Color Yellow Urine Appearance Clear (Clear) Urine pH 5.0 (4.5-7.5) Ur Specific [place] 1.016 (1.000-1.030) Urine Protein Negative (Negative) Urine Glucose (UA) 3+ H (Negative) Urine Ketones Negative (Negative) Urine Blood Negative (Negative) Urine Nitrite Negative (Negative) Urine Bilirubin Negative (Negative) Urine Urobilinogen Negative (Negative) Ur Leukocyte Esterase Negative (Negative) Urine Opiates Screen (Neg) Ur Methadone, Qual (Neg) Urine Barbiturates (Neg) Ur Phencyclidine (PCP) (Neg) U Amphetamin/Meth Scrn (Neg) MDMA (Ecstasy) Screen (Neg) U Benzodiazepines Scrn (Neg) Ur Cocaine Metabolite (Neg) U Marijuana (THC) Screen (Neg) Ethyl Alcohol mg/dL (0-3) mg/dl 09/24/19 09/24/19 09/24/19 Range/Units 02:30 03:22 03:22 WBC (4.8-10.8) K/uL RBC (4.7-6.1) M/uL Hgb (14.0-18.0) g/dL Hct (42-52) % MCV (80-100) fL MCH (25-34) pg MCHC (32-36) g/dL RDW Std Deviation (36.4-46.3) fL RDW Coeff of Gucci (11.5-14.5) % Plt Count (130-400) K/uL MPV (7.4-10.4) fL Immature Gran % (Auto) % Neut % (Auto) % Lymph % (Auto) % [place] % (Auto) % Eos % (Auto) % Baso % (Auto) % Immature Gran # (Auto) (0.00-0.02) K/uL Neut # (Auto) (1.4-6.5) K/uL Lymph # (Auto) (1.2-3.4) K/uL [place] # (Auto) (0.11-0.59) K/uL Eos # (Auto) (0-0.5) K/uL Baso # (Auto) (0-0.2) K/uL PT (9.0-12.0) Seconds INR (0.9-1.1) APTT (21.0-31.0) Seconds PTT Ratio Sodium (136-145) mmol/L Potassium (3.5-5.1) mmol/L Chloride (98-107) mmol/L Carbon Dioxide (21-32) mmol/L Anion Gap (3-11) BUN (7-18) mg/dl Creatinine (0.6-1.4) mg/dl Est Cr Clr Drug Dosing ml/min Est GFR ( Amer) Est GFR (Non-Af Amer) BUN/Creatinine Ratio (10-20) Glucose (70-99) mg/dl Lactate (0.4-2.0) mmol/L Calcium (8.5-10.1) mg/dl Magnesium (1.8-2.4) mg/dl Total Bilirubin (0.2-1) mg/dl Direct Bilirubin (0-0.2) mg/dl AST (15-37) U/L ALT (12-78) U/L Alkaline Phosphatase (45-117) U/L Troponin I (0-0.045) ng/ml Total Protein (6.4-8.2) gm/dl Albumin (3.4-5.0) gm/dl Amylase (25-115) U/L Lipase (73-393) U/L Beta-Hydroxybutyric Acd (0.2-2.81) mg/dl Procalcitonin < 0.05 (0-0.5) ng/ml TSH 2.900 (0.300-4.500) uIu/ml Urine Color Urine Appearance (Clear) Urine pH (4.5-7.5) Ur Specific [place] (1.000-1.030) Urine Protein (Negative) Urine Glucose (UA) (Negative) Urine Ketones (Negative) Urine Blood (Negative) Urine Nitrite (Negative) Urine Bilirubin (Negative) Urine Urobilinogen (Negative) Ur Leukocyte Esterase (Negative) Urine Opiates Screen Pos H (Neg) Ur Methadone, Qual Neg (Neg) Urine Barbiturates Neg (Neg) Ur Phencyclidine (PCP) Neg (Neg) U Amphetamin/Meth Scrn Neg (Neg) MDMA (Ecstasy) Screen Neg (Neg) U Benzodiazepines Scrn Neg (Neg) Ur Cocaine Metabolite Neg (Neg) U Marijuana (THC) Screen Neg (Neg) Ethyl Alcohol mg/dL (0-3) mg/dl 09/24/19 Range/Units 03:32 WBC (4.8-10.8) K/uL RBC (4.7-6.1) M/uL Hgb (14.0-18.0) g/dL Hct (42-52) % MCV (80-100) fL MCH (25-34) pg MCHC (32-36) g/dL RDW Std Deviation (36.4-46.3) fL RDW Coeff of Gucci (11.5-14.5) % Plt Count (130-400) K/uL MPV (7.4-10.4) fL Immature Gran % (Auto) % Neut % (Auto) % Lymph % (Auto) % [place] % (Auto) % Eos % (Auto) % Baso % (Auto) % Immature Gran # (Auto) (0.00-0.02) K/uL Neut # (Auto) (1.4-6.5) K/uL Lymph # (Auto) (1.2-3.4) K/uL [place] # (Auto) (0.11-0.59) K/uL Eos # (Auto) (0-0.5) K/uL Baso # (Auto) (0-0.2) K/uL PT (9.0-12.0) Seconds INR (0.9-1.1) APTT (21.0-31.0) Seconds PTT Ratio Sodium (136-145) mmol/L Potassium (3.5-5.1) mmol/L Chloride (98-107) mmol/L Carbon Dioxide (21-32) mmol/L Anion Gap (3-11) BUN (7-18) mg/dl Creatinine (0.6-1.4) mg/dl Est Cr Clr Drug Dosing ml/min Est GFR ( Amer) Est GFR (Non-Af Amer) BUN/Creatinine Ratio (10-20) Glucose (70-99) mg/dl Lactate 4.9 H* (0.4-2.0) mmol/L Calcium (8.5-10.1) mg/dl Magnesium (1.8-2.4) mg/dl Total Bilirubin (0.2-1) mg/dl Direct Bilirubin (0-0.2) mg/dl AST (15-37) U/L ALT (12-78) U/L Alkaline Phosphatase (45-117) U/L Troponin I (0-0.045) ng/ml Total Protein (6.4-8.2) gm/dl Albumin (3.4-5.0) gm/dl Amylase (25-115) U/L Lipase (73-393) U/L Beta-Hydroxybutyric Acd (0.2-2.81) mg/dl Procalcitonin (0-0.5) ng/ml TSH (0.300-4.500) uIu/ml Urine Color Urine Appearance (Clear) Urine pH (4.5-7.5) Ur Specific [place] (1.000-1.030) Urine Protein (Negative) Urine Glucose (UA) (Negative) Urine Ketones (Negative) Urine Blood (Negative) Urine Nitrite (Negative) Urine Bilirubin (Negative) Urine Urobilinogen (Negative) Ur Leukocyte Esterase (Negative) Urine Opiates Screen (Neg) Ur Methadone, Qual (Neg) Urine Barbiturates (Neg) Ur Phencyclidine (PCP) (Neg) U Amphetamin/Meth Scrn (Neg) MDMA (Ecstasy) Screen (Neg) U Benzodiazepines Scrn (Neg) Ur Cocaine Metabolite (Neg) U Marijuana (THC) Screen (Neg) Ethyl Alcohol mg/dL (0-3) mg/dl Administered Medications Lactated Ringer's (Lr) 1,000 mls @ 500 mls/hr IV .Q2H ONE Stop: 09/24/19 07:29 Last Admin: 09/24/19 05:15 Dose: 500 mls/hr Documented by: [id number] Lorazepam (Ativan) 1 mg in 2 mls @ 2 mls/min IV UD PRN; Protocol PRN Reason: EtOH Withdrawl AWSS Score 6,7 Stop: 10/24/19 04:47 Last Admin: 09/24/19 05:16 Dose: 2 mls/min Documented by: [id number] Insulin Aspart (Novolog Flexpen) 0 units SC ACHS RAMOS Stop: 10/24/19 04:47 Last Admin: 09/24/19 05:57 Dose: 2 units Documented by: [id number] Cosigned by: [id number] Ketorolac Tromethamine (Toradol) 15 mg IV Q6H PRN PRN Reason: Pain Stop: 09/29/19 04:47 Last Admin: 09/24/19 05:16 Dose: 15 mg Documented by: [id number] Discontinued Medications Gabapentin (Neurontin) 1,200 mg PO NOW STA Stop: 09/24/19 03:54 Last Admin: 09/24/19 04:13 Dose: 1,200 mg Documented by: [id number] Hydromorphone HCl (Dilaudid) 1 mg IV NOW STA Stop: 09/24/19 01:08 Last Admin: 09/24/19 01:15 Dose: 1 mg Documented by: [id number] Multivitamins 10 ml/ Thiamine HCl 100 mg/ Folic Acid 1 mg/Sodium Chloride 1,011.2 mls @ 1,011.2 mls/hr IV .Q1H ONE Stop: 09/24/19 02:06 Last Infusion: 09/24/19 02:19 Dose: 0 mls/hr Documented by: [id number] Admin: 09/24/19 01:19 Dose: 1,011.2 mls/hr Documented by: [id number] Sodium Chloride (Nss 1000ml) 1,000 mls @ 999 mls/hr IV .Q1H1M ONE Stop: 09/24/19 02:07 Last Infusion: 09/24/19 02:21 Dose: 0 mls/hr Documented by: [id number] Admin: 09/24/19 01:19 Dose: 999 mls/hr Documented by: [id number] Lorazepam (Ativan) 2 mg in 4 mls @ 4 mls/min IV NOW STA Stop: 09/24/19 01:48 Last Admin: 09/24/19 01:51 Dose: 4 mls/min Documented by: [id number] Sodium Chloride (Nss 1000ml) 1,000 mls @ 999 mls/hr IV .Q1H1M ONE Stop: 09/24/19 03:01 Last Infusion: 09/24/19 03:31 Dose: 0 mls/hr Documented by: [id number] Admin: 09/24/19 02:17 Dose: 999 mls/hr Documented by: [id number] Lactated Ringer's (Lr) 1,000 mls @ 500 mls/hr IV .Q2H ONE Stop: 09/24/19 05:17 Last Infusion: 09/24/19 05:26 Dose: 0 mls/hr Documented by: [id number] Admin: 09/24/19 03:27 Dose: 500 mls/hr Documented by: [id number] Insulin Glargine (Lantus Solostar Pen) 10 units SC NOW STA Stop: 09/24/19 03:14 Last Admin: 09/24/19 03:25 Dose: 10 units Documented by: [id number] Cosigned by: [id number] Ioversol (Optiray 320 100ml) 94 ml IV ONCE PRN PRN Reason: Interaction Checking Stop: 09/28/19 02:36 Last Admin: 09/24/19 02:40 Dose: 94 ml Documented by: [id number] Ketorolac Tromethamine (Toradol) 15 mg IV NOW ONE Stop: 09/24/19 03:44 Last Admin: 09/24/19 03:51 Dose: 15 mg Documented by: [id number] Morphine Sulfate (Morphine Sulfate) 10 mg IV NOW STA Stop: 09/24/19 01:48 Last Admin: 09/24/19 01:54 Dose: 10 mg Documented by: [id number] Ondansetron HCl (Zofran) 4 mg IV NOW STA Stop: 09/24/19 01:08 Last Admin: 09/24/19 01:14 Dose: 4 mg Documented by: [id number] Raspberry (Raspberry) 5 ml PO ONE STA Stop: 09/24/19 04:15 Last Admin: 09/24/19 05:15 Dose: 5 ml Documented by: [id number] Vancomycin HCl (Vancomycin Hcl) 125 mg PO ONE STA Stop: 09/24/19 04:15 Last Admin: 09/24/19 05:15 Dose: 125 mg Documented by: [id number] Blood Pressure Blood Pressure Findings: Low blood pressure Blood Pressure Disposition: further management by hospitalist Discharge Plan Visit Data *Final* Discharge Date/Time: 09/24/19 04:38 Chief Complaint: Abdominal Pain Stated Complaint: ABDOMINAL PAIN ED Provider: Jose Clemente Discharge Problem: Pancreatitis, Lactic acidosis, Intractable abdominal pain Patient Disposition: Admitted As Inpatient Discharge Instructions Interventions: ED Discharge Assessment Last Done: 09/24/19 04:38 Discharge Problem: Pancreatitis Qualifiers: Chronicity: acute Pancreatitis type: unspecified pancreatitis type Acute pancreatitis complication: unspecified Qualified Code(s): K85.90 - Acute pancreatitis without necrosis or infection, unspecified The scribe's documentation has been prepared under my direction and personally reviewed by me in its entirety. I confirm that the note above accurately reflects all work, treatment, procedures, and medical decision making performed by me.
--- NOTE | 2019-09-24 07:21 | CT Scan Report ---
ABDOMEN AND PELVIS CT WITH IV CONTRAST CT DOSE: 1029.06 mGy.cm HISTORY: epigastric pain, pancreatitis, lactic acidosis TECHNIQUE: Multiaxial CT images of the abdomen and pelvis were performed following the use of intrave nous contrast. A dose lowering technique was utilized adhering to the principles of ALARA. COMPARISON STUDY: Abdomen and pelvis CT 10/01/2018. FINDINGS: Stable 3.2 cm right pericardial cyst. Mild dependent changes seen at the lung bases. No pne umoperitoneum. No pneumatosis. Oser decompression fusion from L4 through S1 with pedicle screws and r ods. Prior cholecystectomy. Small area of focal fat within the central liver adjacent to the kelsy he patis. No hepatic or splenic lesions identified. The adrenal glands and kidneys are unremarkable. No retroperitoneal lymphadenopathy. No hydronephrosis. The appendix is not identified and likely surgica lly absent. Numerous lower abdominal collateral vessels remain unchanged. No bowel wall thickening or obstruction. The main portal vein is patent. No change in the atrophy of the pancreatic tail. No per ipancreatic inflammatory change to suggest acute pancreatitis. The main pancreatic duct is not identi fied and therefore likely normal in caliber. Tiny fat-containing umbilical hernia. IMPRESSION: 1. No bowel wall thickening or obstruction. 2. No change in the pancreatic atrophy. No peripancreatic inflammatory change to suggest acute pancre atitis. 3. Additional stable findings as described above. ACT 112: Negative or not required by law. Electronically signed by: Ronak Vega M.D. 09/24/2019 7:19 AM
[2019-09-24] MEDS ORDERED: LACTATED RINGER'S 1,000 ML IV SCH (07:30)
[2019-09-24] MEDS ORDERED: ENOXAPARIN INJ 40 MG/0.4 ML SYR SQ SCH (09:00)
[2019-09-24] MEDS: TRAMADOL HCL 50 MG TABLET PO PRN (09:17)
[2019-09-24] MEDS: NSS + 20MEQ KCL 20 MEQ/1,000 ML BAG IV SCH ×3 (09:34→23:43)
[2019-09-24] MEDS: ACETAMINOPHEN 1,000 MG/100 ML VIAL IV SCH ×2 (09:34→17:22)
[2019-09-24] MEDS: PANTOprazole 40 MG TAB PO SCH (09:44)
[2019-09-24] MEDS: GABAPENTIN 600 MG TAB PO SCH ×2 (09:44→16:21)
[2019-09-24] MEDS: PARoxetine HCL 20 MG TAB PO SCH (09:44)
[2019-09-24 09:52] LABS: Basophils # (auto) 0.01 K/uL (0-0.2); Basophils % (auto) 0.3 %; Eosinophils # (auto) 0.11 K/uL (0-0.5); Eosinophils % (auto) 3.1 %; Hematocrit (blood only) 38.4 % (42-52); Hemoglobin 13.6 g/dL (14.0-18.0); Immature Granulocytes # (auto) 0.01 K/uL (0.00-0.02); Immature Granulocytes % (auto) 0.3 %; Lymphocytes # (auto) 1.51 K/uL (1.2-3.4); Lymphocytes % (auto) 42.5 %; Mean Corpuscular Hemoglobin 31.9 pg (25-34); Mean Corpuscular Hgb Conc 35.4 g/dL (32-36); Mean Corpuscular Volume 89.9 fL (80-100); Mean Platelet Volume 9.5 fL (7.4-10.4); Monocytes # (auto) 0.29 K/uL (0.11-0.59); Monocytes % (auto) 8.2 %; Neutrophils # (auto) 1.62 K/uL (1.4-6.5); Neutrophils % (auto) 45.6 %; Platelet Count 140 K/uL (130-400); RDW Coefficient of Variation 12.7 % (11.5-14.5); RDW Standard Deviation 41.3 fL (36.4-46.3); Red Blood Count 4.27 M/uL (4.7-6.1); White Blood Count 3.55 K/uL (4.8-10.8)
[2019-09-24 10:20] LABS: BUN Creatinine Ratio 7.6 (10-20); Calcium 8.3 mg/dl (8.5-10.1); Creatinine Clr Calc Pharmacy 161.4 ml/min; Est GFR (African American) 129.8; Potassium 3.7 mmol/L (3.5-5.1)
--- NOTE | 2019-09-24 11:14 | Gastrointestinal Consultation ---
Date of Consultation September 24, 2019 Assessment & Plan (1) Intractable abdominal pain: 43 year old male admitted w/ acute on chronic abdominal pain x 1 week, epigastric in location w/ radiation to his RUQ w/ report of nausea/vomiting x 48 hours and now diarrheal illness w/o any black or bloody stools. LFTS, lipase are WNL. CTAP w/o evidence of acute pathology NPO for bowel rest LR for maintenance fluids Anti emetics PRN Cautious Analgesia PRN Check c.diff and stool culture Bentyl 10 mg TID ETOH withdrawal protocol Strict ETOH cessation was discussed, he verbalized understanding but states "its hard to do that" OP GES, OP colonoscopy, OP EUS Thank you for allowing us to participate in the care of this patient. Please call with any acute changes, questions or concerns. Please see addendum below with additional recommendation from my supervising physician. Present on Admission?: Yes Supervising Physician Co-Signing Physician Notes I saw and evaluated the patient. This is a 43-year-old male with a long history of alcohol abuse who presented to the emergency room for evaluation of abdominal discomfort. We are consulted due to a question of chronic pancreatitis and loose to liquid stools. Of note the patient has yet to have a bowel movement since admission yesterday. He reports that he did have a colonoscopy several years ago. We have seen the patient before in the past and had recommended several evaluations which he has yet to do. It suggested an endoscopic ultrasound for evaluation of probable chronic pancreatitis. Of note the patient was intoxicated at the time of admission yesterday. Physical examination Disheveled appearing, no obvious distress Impression: Patient with a long history of alcohol abuse presented with abdominal pain irregular bowel habits. The patient appears to have had improvement of his bowel movements and since admission but I would recommend consideration of testing stool for C. difficile, cultures and perhaps fat to screen for stearrhea. Of most important for us for this patient I think abstinence from all alcohol consumption would benefit him greatly. We did have a discussion about this this afternoon. Recommendations Consider sending stool for C. difficile, stool culture and fecal fat Outpatient colonoscopy to be scheduled Outpatient endoscopic ultrasound to be scheduled Please call with any questions or concerns, GI to sign off for the present time History of Present Illness Reason for Consultation: abd pain Requesting Physician: Lelo Attending Physician: Antony Lind MD History of Present Illness 43 year old male with history of narcotic abuse, alcoholism, ETOH induced pancreatitis, diabetes - noncompliant with therapy, GERD, PE, depression, bipolar disorder admitted through the ED for evaluation of abdominal pain. Pt was seen and evaluated, chart reviewed. Endorses onset of epigastric and RUQ abd pain about 1 week ago. Has been constant, severe since onset. Did have mild nausea/vomiting on day 1/2 of illness. None since. Also reports diarrhea. This is uncommon for him. No black or bloody stools. No fever, chills, CP, SOB. Is drinking ETOH, suggests 3/4 beers daily. Toxicology screen did show elevated ETOH level and opioid screen. He has asked me to switch his current pain regimen to "two vials of dilaudid every two hours" numerous times during this consultation. LFTS: non elevated Lipase: non elevated Lactic acid: elevated but down trending CTAP: No bowel wall thickening or obstruction. No change in the pancreatic atrophy. No peripancreatic inflammatory change to suggest acute pancreatitis. EUS: ordered in 2017 and 2019 and attempted to be scheduled but pt never returned our calls Colonoscopy: none EGD 2019: Normal esophagus. Mild gastritis. Mild erythema in the duodenum.No specimens collected EUS 2009: EUS imaging consistent with mild chronic pancreatitis Pronounced cholesterolosis of gallbladder no biliary dilation or stones probable gastroparesis. GES 2009: compatible with gastroparesis Allergies Allergy/AdvReac Type Severity Reaction Status Date / Time No Known Allergies Allergy Verified 09/24/19 02:51 Home Medications Home Medications Medication Instructions Recorded Confirmed Type pantoprazole 40 mg PO DAILY 09/16/18 09/24/19 History paroxetine HCl 20 mg PO DAILY 09/16/18 09/24/19 History acetaminophen [Pain Reliever] 1,000 mg PO Q6H PRN 10/01/18 09/24/19 History gabapentin 300 mg PO HS 09/24/19 09/24/19 History Patient History Medical History Abdominal pain Acute hyperglycemia (Acute) Alcohol abuse (Chronic Unknown) Alcohol abuse (Acute) Renae's esophagus (Chronic Unknown) "per EGD 11/23/09 " On 05/31/11 09:06 Martinez Jose wrote "per EGD 11/23/09 " Chest pain Depression (Chronic) Depression (Chronic) DM type 2 (diabetes mellitus, type 2) (Chronic) Encounter for alcohol abuse counseling and surveillance (Acute) Encounter for pre-operative examination Encounter for tobacco use cessation counseling (Acute) H/O acute pancreatitis (Chronic) "recurrent" History of substance abuse (Chronic) Hyperglycemia (Acute) Intentional drug overdose (Resolved) Lumbar degenerative disc disease (Chronic) Mood disorder (Chronic) Mood disorder (Chronic) Neuropathy (Acute) Pancreatitis (Acute) Panic disorder (Chronic) Pulmonary embolism (Resolved) Suicidal ideation (Chronic) Suicidal ideation (Resolved) Suicide attempt (Resolved) Surgical History H/O esophagogastroduodenoscopy (Chronic) "EGD 11/23/2009- mild gastritis, suspicious for gastroparesis, Z-line irregular EUS 02/04/2010- mild chronic pancreatitis, pronounced cholesterolosis of gallbladder, no biliary dilation or stones, probable gastroparesis EGD 10/31/2014- gastritis" S/P lumbar fusion (Resolved) L4-S1 2014 Family History Other No significant family history Social History Preferred Language: Romanian Communication Ability: Effective 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: No Beliefs That Will Affect Care: None Current Living Situation: Family Current Living Situation Comment: with mother Other Information That Helps Us Care for You: No Feels Safe at Home: Yes Safety Concerns: Feels Safe At This Time Smoking Status: Never smoker Tobacco Type: smokeless tobacco ; Do You Dip or Chew Tobacco: Yes ; Second Hand Exposure: Yes ; Hx Alcohol Use: Yes Alcohol type: beer Hx Substance Use: No Review of Systems Constitutional: no fever, no chills and no fatigue Respiratory: no cough and no dyspnea Cardiovascular: no chest pain and no dyspnea Gastrointestinal: + abdominal pain, + change in stools and + diarrhea/loose stools; no heartburn, no nausea, no coffee ground emesis, no blood in stools and no melena Physical Exam Constitutional: WD/WN, vitals as above Neck: trachea midline Respiratory: normal respiratory effort, lungs clear to auscultation Cardiovascular: Rate/Rhythm: regular rhythm and + tachycardic Gastrointestinal (Abdomen): Inspection/Auscultation: normal bowel sounds Percussion/Palpation: + abdomen tender (report of pain w/ palpatin of upper abdomen) and abdomen soft; no guarding and abdomen not rigid Skin: no rashes, warm and dry Results & Data ([facility]) Vital Signs (Past 12 Hours) Vital Signs Temp Pulse Pulse Resp BP BP BP 09/24/19 11:03 104 H 09/24/19 07:27 36.3 C L 105 H 18 92/53 L 09/24/19 04:45 36.3 C L 120 H 109 H 20 107/77 09/24/19 04:37 120 H 20 106/70 09/24/19 04:05 117 H 20 116/68 09/24/19 03:30 118 H 20 121/76 09/24/19 02:59 122 H 16 96/61 L 09/24/19 02:02 105 H 16 94/66 L 09/24/19 01:24 111 H 22 141/85 H 09/24/19 01:04 36.8 C 108 H 20 133/86 Pulse Ox 09/24/19 11:03 09/24/19 07:27 92 09/24/19 04:45 91 09/24/19 04:37 94 09/24/19 04:05 94 09/24/19 03:30 99 09/24/19 02:59 94 09/24/19 02:02 98 09/24/19 01:24 92 09/24/19 01:04 95 Laboratory Results 09/24/19 09/24/19 09/24/19 Range/Units 09:33 09:33 08:18 WBC 3.55 L (4.8-10.8) K/uL RBC 4.27 L (4.7-6.1) M/uL Hgb 13.6 L (14.0-18.0) g/dL Hct 38.4 L (42-52) % MCV 89.9 (80-100) fL MCH 31.9 (25-34) pg MCHC 35.4 (32-36) g/dL RDW Std Deviation 41.3 (36.4-46.3) fL RDW Coeff of Gucci 12.7 (11.5-14.5) % Plt Count 140 (130-400) K/uL MPV 9.5 (7.4-10.4) fL Immature Gran % (Auto) 0.3 % Neut % (Auto) 45.6 % Lymph % (Auto) 42.5 % Evans % (Auto) 8.2 % Eos % (Auto) 3.1 % Baso % (Auto) 0.3 % Immature Gran # (Auto) 0.01 (0.00-0.02) K/uL Neut # (Auto) 1.62 (1.4-6.5) K/uL Lymph # (Auto) 1.51 (1.2-3.4) K/uL Evans # (Auto) 0.29 (0.11-0.59) K/uL Eos # (Auto) 0.11 (0-0.5) K/uL Baso # (Auto) 0.01 (0-0.2) K/uL PT (9.0-12.0) Seconds INR (0.9-1.1) APTT (21.0-31.0) Seconds PTT Ratio Sodium 141 (136-145) mmol/L Potassium 3.7 (3.5-5.1) mmol/L Chloride 111 H (98-107) mmol/L Carbon Dioxide 23 (21-32) mmol/L Anion Gap 7.0 (3-11) BUN 6 L (7-18) mg/dl Creatinine 0.73 D (0.6-1.4) mg/dl Est Cr Clr Drug Dosing 161.4 ml/min Est GFR ( Amer) 129.8 Est GFR (Non-Af Amer) 112.0 BUN/Creatinine Ratio 7.6 L (10-20) Glucose 177 H (70-99) mg/dl POC Glucose (70-99) mg/dl Lactate 3.4 H* (0.4-2.0) mmol/L Calcium 8.3 L (8.5-10.1) mg/dl Magnesium (1.8-2.4) mg/dl Total Bilirubin (0.2-1) mg/dl Direct Bilirubin (0-0.2) mg/dl AST (15-37) U/L ALT (12-78) U/L Alkaline Phosphatase (45-117) U/L Troponin I (0-0.045) ng/ml Total Protein (6.4-8.2) gm/dl Albumin (3.4-5.0) gm/dl Amylase (25-115) U/L Lipase (73-393) U/L Beta-Hydroxybutyric Acd (0.2-2.81) mg/dl Procalcitonin (0-0.5) ng/ml TSH (0.300-4.500) uIu/ml Urine Color Urine Appearance (Clear) Urine pH (4.5-7.5) Ur Specific [place] (1.000-1.030) Urine Protein (Negative) Urine Glucose (UA) (Negative) Urine Ketones (Negative) Urine Blood (Negative) Urine Nitrite (Negative) Urine Bilirubin (Negative) Urine Urobilinogen (Negative) Ur Leukocyte Esterase (Negative) Urine Opiates Screen (Neg) U Codeine Confrm GC/MS Ur Morphine (GC/MS) Ur Hydrocodone (GC/MS) Ur Norhydrocodone Ur Noroxycodone Urine Oxycodone (GC/MS) U Oxymorphone GC/MS Ur Methadone, Qual (Neg) Ur Hydromorphone (GC/MS) Urine Barbiturates (Neg) Ur Phencyclidine (PCP) (Neg) U Amphetamin/Meth Scrn (Neg) MDMA (Ecstasy) Screen (Neg) U Benzodiazepines Scrn (Neg) Ur Cocaine Metabolite (Neg) U Marijuana (THC) Screen (Neg) Drug Screen Comment Ethyl Alcohol mg/dL (0-3) mg/dl 09/24/19 09/24/19 09/24/19 Range/Units 07:38 05:51 03:32 WBC (4.8-10.8) K/uL RBC (4.7-6.1) M/uL Hgb (14.0-18.0) g/dL Hct (42-52) % MCV (80-100) fL MCH (25-34) pg MCHC (32-36) g/dL RDW Std Deviation (36.4-46.3) fL RDW Coeff of Gucci (11.5-14.5) % Plt Count (130-400) K/uL MPV (7.4-10.4) fL Immature Gran % (Auto) % Neut % (Auto) % Lymph % (Auto) % Evans % (Auto) % Eos % (Auto) % Baso % (Auto) % Immature Gran # (Auto) (0.00-0.02) K/uL Neut # (Auto) (1.4-6.5) K/uL Lymph # (Auto) (1.2-3.4) K/uL Evans # (Auto) (0.11-0.59) K/uL Eos # (Auto) (0-0.5) K/uL Baso # (Auto) (0-0.2) K/uL PT (9.0-12.0) Seconds INR (0.9-1.1) APTT (21.0-31.0) Seconds PTT Ratio Sodium (136-145) mmol/L Potassium (3.5-5.1) mmol/L Chloride (98-107) mmol/L Carbon Dioxide (21-32) mmol/L Anion Gap (3-11) BUN (7-18) mg/dl Creatinine (0.6-1.4) mg/dl Est Cr Clr Drug Dosing ml/min Est GFR ( Amer) Est GFR (Non-Af Amer) BUN/Creatinine Ratio (10-20) Glucose (70-99) mg/dl POC Glucose 232 H 213 H (70-99) mg/dl Lactate 4.9 H* (0.4-2.0) mmol/L Calcium (8.5-10.1) mg/dl Magnesium (1.8-2.4) mg/dl Total Bilirubin (0.2-1) mg/dl Direct Bilirubin (0-0.2) mg/dl AST (15-37) U/L ALT (12-78) U/L Alkaline Phosphatase (45-117) U/L Troponin I (0-0.045) ng/ml Total Protein (6.4-8.2) gm/dl Albumin (3.4-5.0) gm/dl Amylase (25-115) U/L Lipase (73-393) U/L Beta-Hydroxybutyric Acd (0.2-2.81) mg/dl Procalcitonin (0-0.5) ng/ml TSH (0.300-4.500) uIu/ml Urine Color Urine Appearance (Clear) Urine pH (4.5-7.5) Ur Specific [place] (1.000-1.030) Urine Protein (Negative) Urine Glucose (UA) (Negative) Urine Ketones (Negative) Urine Blood (Negative) Urine Nitrite (Negative) Urine Bilirubin (Negative) Urine Urobilinogen (Negative) Ur Leukocyte Esterase (Negative) Urine Opiates Screen (Neg) U Codeine Confrm GC/MS Ur Morphine (GC/MS) Ur Hydrocodone (GC/MS) Ur Norhydrocodone Ur Noroxycodone Urine Oxycodone (GC/MS) U Oxymorphone GC/MS Ur Methadone, Qual (Neg) Ur Hydromorphone (GC/MS) Urine Barbiturates (Neg) Ur Phencyclidine (PCP) (Neg) U Amphetamin/Meth Scrn (Neg) MDMA (Ecstasy) Screen (Neg) U Benzodiazepines Scrn (Neg) Ur Cocaine Metabolite (Neg) U Marijuana (THC) Screen (Neg) Drug Screen Comment Ethyl Alcohol mg/dL (0-3) mg/dl 09/24/19 09/24/19 09/24/19 Range/Units 03:22 03:22 02:30 WBC (4.8-10.8) K/uL RBC (4.7-6.1) M/uL Hgb (14.0-18.0) g/dL Hct (42-52) % MCV (80-100) fL MCH (25-34) pg MCHC (32-36) g/dL RDW Std Deviation (36.4-46.3) fL RDW Coeff of Gucci (11.5-14.5) % Plt Count (130-400) K/uL MPV (7.4-10.4) fL Immature Gran % (Auto) % Neut % (Auto) % Lymph % (Auto) % Evans % (Auto) % Eos % (Auto) % Baso % (Auto) % Immature Gran # (Auto) (0.00-0.02) K/uL Neut # (Auto) (1.4-6.5) K/uL Lymph # (Auto) (1.2-3.4) K/uL Evans # (Auto) (0.11-0.59) K/uL Eos # (Auto) (0-0.5) K/uL Baso # (Auto) (0-0.2) K/uL PT (9.0-12.0) Seconds INR (0.9-1.1) APTT (21.0-31.0) Seconds PTT Ratio Sodium (136-145) mmol/L Potassium (3.5-5.1) mmol/L Chloride (98-107) mmol/L Carbon Dioxide (21-32) mmol/L Anion Gap (3-11) BUN (7-18) mg/dl Creatinine (0.6-1.4) mg/dl Est Cr Clr Drug Dosing ml/min Est GFR ( Amer) Est GFR (Non-Af Amer) BUN/Creatinine Ratio (10-20) Glucose (70-99) mg/dl POC Glucose (70-99) mg/dl Lactate (0.4-2.0) mmol/L Calcium (8.5-10.1) mg/dl Magnesium (1.8-2.4) mg/dl Total Bilirubin (0.2-1) mg/dl Direct Bilirubin (0-0.2) mg/dl AST (15-37) U/L ALT (12-78) U/L Alkaline Phosphatase (45-117) U/L Troponin I (0-0.045) ng/ml Total Protein (6.4-8.2) gm/dl Albumin (3.4-5.0) gm/dl Amylase (25-115) U/L Lipase (73-393) U/L Beta-Hydroxybutyric Acd (0.2-2.81) mg/dl Procalcitonin < 0.05 (0-0.5) ng/ml TSH 2.900 (0.300-4.500) uIu/ml Urine Color Urine Appearance (Clear) Urine pH (4.5-7.5) Ur Specific [place] (1.000-1.030) Urine Protein (Negative) Urine Glucose (UA) (Negative) Urine Ketones (Negative) Urine Blood (Negative) Urine Nitrite (Negative) Urine Bilirubin (Negative) Urine Urobilinogen (Negative) Ur Leukocyte Esterase (Negative) Urine Opiates Screen (Neg) U Codeine Confrm GC/MS Pending Ur Morphine (GC/MS) Pending Ur Hydrocodone (GC/MS) Pending Ur Norhydrocodone Pending Ur Noroxycodone Pending Urine Oxycodone (GC/MS) Pending U Oxymorphone GC/MS Pending Ur Methadone, Qual (Neg) Ur Hydromorphone (GC/MS) Pending Urine Barbiturates (Neg) Ur Phencyclidine (PCP) (Neg) U Amphetamin/Meth Scrn (Neg) MDMA (Ecstasy) Screen (Neg) U Benzodiazepines Scrn (Neg) Ur Cocaine Metabolite (Neg) U Marijuana (THC) Screen (Neg) Drug Screen Comment Pending Ethyl Alcohol mg/dL (0-3) mg/dl 09/24/19 09/24/19 09/24/19 Range/Units 02:30 02:30 01:17 WBC (4.8-10.8) K/uL RBC (4.7-6.1) M/uL Hgb (14.0-18.0) g/dL Hct (42-52) % MCV (80-100) fL MCH (25-34) pg MCHC (32-36) g/dL RDW Std Deviation (36.4-46.3) fL RDW Coeff of Gucci (11.5-14.5) % Plt Count (130-400) K/uL MPV (7.4-10.4) fL Immature Gran % (Auto) % Neut % (Auto) % Lymph % (Auto) % Evans % (Auto) % Eos % (Auto) % Baso % (Auto) % Immature Gran # (Auto) (0.00-0.02) K/uL Neut # (Auto) (1.4-6.5) K/uL Lymph # (Auto) (1.2-3.4) K/uL Evans # (Auto) (0.11-0.59) K/uL Eos # (Auto) (0-0.5) K/uL Baso # (Auto) (0-0.2) K/uL PT (9.0-12.0) Seconds INR (0.9-1.1) APTT (21.0-31.0) Seconds PTT Ratio Sodium (136-145) mmol/L Potassium (3.5-5.1) mmol/L Chloride (98-107) mmol/L Carbon Dioxide (21-32) mmol/L Anion Gap (3-11) BUN (7-18) mg/dl Creatinine (0.6-1.4) mg/dl Est Cr Clr Drug Dosing ml/min Est GFR ( Amer) Est GFR (Non-Af Amer) BUN/Creatinine Ratio (10-20) Glucose (70-99) mg/dl POC Glucose (70-99) mg/dl Lactate 5.4 H* (0.4-2.0) mmol/L Calcium (8.5-10.1) mg/dl Magnesium (1.8-2.4) mg/dl Total Bilirubin (0.2-1) mg/dl Direct Bilirubin (0-0.2) mg/dl AST (15-37) U/L ALT (12-78) U/L Alkaline Phosphatase (45-117) U/L Troponin I (0-0.045) ng/ml Total Protein (6.4-8.2) gm/dl Albumin (3.4-5.0) gm/dl Amylase (25-115) U/L Lipase (73-393) U/L Beta-Hydroxybutyric Acd (0.2-2.81) mg/dl Procalcitonin (0-0.5) ng/ml TSH (0.300-4.500) uIu/ml Urine Color Yellow Urine Appearance Clear (Clear) Urine pH 5.0 (4.5-7.5) Ur Specific [place] 1.016 (1.000-1.030) Urine Protein Negative (Negative) Urine Glucose (UA) 3+ H (Negative) Urine Ketones Negative (Negative) Urine Blood Negative (Negative) Urine Nitrite Negative (Negative) Urine Bilirubin Negative (Negative) Urine Urobilinogen Negative (Negative) Ur Leukocyte Esterase Negative (Negative) Urine Opiates Screen Pos H (Neg) U Codeine Confrm GC/MS Ur Morphine (GC/MS) Ur Hydrocodone (GC/MS) Ur Norhydrocodone Ur Noroxycodone Urine Oxycodone (GC/MS) U Oxymorphone GC/MS Ur Methadone, Qual Neg (Neg) Ur Hydromorphone (GC/MS) Urine Barbiturates Neg (Neg) Ur Phencyclidine (PCP) Neg (Neg) U Amphetamin/Meth Scrn Neg (Neg) MDMA (Ecstasy) Screen Neg (Neg) U Benzodiazepines Scrn Neg (Neg) Ur Cocaine Metabolite Neg (Neg) U Marijuana (THC) Screen Neg (Neg) Drug Screen Comment Ethyl Alcohol mg/dL (0-3) mg/dl 02/18/20 02/18/20 02/18/20 Range/Units 01:17 01:17 01:17 WBC 5.42 (4.8-10.8) K/uL RBC 5.07 (4.7-6.1) M/uL Hgb 16.1 (14.0-18.0) g/dL Hct 45.1 (42-52) % MCV 89.0 (80-100) fL MCH 31.8 (25-34) pg MCHC 35.7 (32-36) g/dL RDW Std Deviation 39.7 (36.4-46.3) fL RDW Coeff of Gucci 12.5 (11.5-14.5) % Plt Count 188 (130-400) K/uL MPV 9.9 (7.4-10.4) fL Immature Gran % (Auto) 0.2 % Neut % (Auto) 52.4 % Lymph % (Auto) 36.7 % Evans % (Auto) 5.5 % Eos % (Auto) 4.8 % Baso % (Auto) 0.4 % Immature Gran # (Auto) 0.01 (0.00-0.02) K/uL Neut # (Auto) 2.84 (1.4-6.5) K/uL Lymph # (Auto) 1.99 (1.2-3.4) K/uL Evans # (Auto) 0.30 (0.11-0.59) K/uL Eos # (Auto) 0.26 (0-0.5) K/uL Baso # (Auto) 0.02 (0-0.2) K/uL PT (9.0-12.0) Seconds INR (0.9-1.1) APTT (21.0-31.0) Seconds PTT Ratio Sodium 137 (136-145) mmol/L Potassium 3.6 (3.5-5.1) mmol/L Chloride 103 (98-107) mmol/L Carbon Dioxide 26 (21-32) mmol/L Anion Gap 8.0 (3-11) BUN 8 (7-18) mg/dl Creatinine 1.06 (0.6-1.4) mg/dl Est Cr Clr Drug Dosing 110.6 ml/min Est GFR ( Amer) 97.8 Est GFR (Non-Af Amer) 84.3 BUN/Creatinine Ratio 7.5 L (10-20) Glucose 312 H* (70-99) mg/dl POC Glucose (70-99) mg/dl Lactate (0.4-2.0) mmol/L Calcium 9.1 (8.5-10.1) mg/dl Magnesium 2.0 (1.8-2.4) mg/dl Total Bilirubin 0.5 (0.2-1) mg/dl Direct Bilirubin 0.1 (0-0.2) mg/dl AST 8 L (15-37) U/L ALT 23 (12-78) U/L Alkaline Phosphatase 95 (45-117) U/L Troponin I < 0.015 (0-0.045) ng/ml Total Protein 7.8 (6.4-8.2) gm/dl Albumin 3.7 (3.4-5.0) gm/dl Amylase 22 L (25-115) U/L Lipase 38 L (73-393) U/L Beta-Hydroxybutyric Acd 2.22 (0.2-2.81) mg/dl Procalcitonin (0-0.5) ng/ml TSH (0.300-4.500) uIu/ml Urine Color Urine Appearance (Clear) Urine pH (4.5-7.5) Ur Specific [place] (1.000-1.030) Urine Protein (Negative) Urine Glucose (UA) (Negative) Urine Ketones (Negative) Urine Blood (Negative) Urine Nitrite (Negative) Urine Bilirubin (Negative) Urine Urobilinogen (Negative) Ur Leukocyte Esterase (Negative) Urine Opiates Screen (Neg) U Codeine Confrm GC/MS Ur Morphine (GC/MS) Ur Hydrocodone (GC/MS) Ur Norhydrocodone Ur Noroxycodone Urine Oxycodone (GC/MS) U Oxymorphone GC/MS Ur Methadone, Qual (Neg) Ur Hydromorphone (GC/MS) Urine Barbiturates (Neg) Ur Phencyclidine (PCP) (Neg) U Amphetamin/Meth Scrn (Neg) MDMA (Ecstasy) Screen (Neg) U Benzodiazepines Scrn (Neg) Ur Cocaine Metabolite (Neg) U Marijuana (THC) Screen (Neg) Drug Screen Comment Ethyl Alcohol mg/dL 197.0 H (0-3) mg/dl 02/18/20 Range/Units 01:17 WBC (4.8-10.8) K/uL RBC (4.7-6.1) M/uL Hgb (14.0-18.0) g/dL Hct (42-52) % MCV (80-100) fL MCH (25-34) pg MCHC (32-36) g/dL RDW Std Deviation (36.4-46.3) fL RDW Coeff of Gucci (11.5-14.5) % Plt Count (130-400) K/uL MPV (7.4-10.4) fL Immature Gran % (Auto) % Neut % (Auto) % Lymph % (Auto) % Evans % (Auto) % Eos % (Auto) % Baso % (Auto) % Immature Gran # (Auto) (0.00-0.02) K/uL Neut # (Auto) (1.4-6.5) K/uL Lymph # (Auto) (1.2-3.4) K/uL Evans # (Auto) (0.11-0.59) K/uL Eos # (Auto) (0-0.5) K/uL Baso # (Auto) (0-0.2) K/uL PT 10.7 (9.0-12.0) Seconds INR 1.0 (0.9-1.1) APTT 24.1 (21.0-31.0) Seconds PTT Ratio 0.9 Sodium (136-145) mmol/L Potassium (3.5-5.1) mmol/L Chloride (98-107) mmol/L Carbon Dioxide (21-32) mmol/L Anion Gap (3-11) BUN (7-18) mg/dl Creatinine (0.6-1.4) mg/dl Est Cr Clr Drug Dosing ml/min Est GFR ( Amer) Est GFR (Non-Af Amer) BUN/Creatinine Ratio (10-20) Glucose (70-99) mg/dl POC Glucose (70-99) mg/dl Lactate (0.4-2.0) mmol/L Calcium (8.5-10.1) mg/dl Magnesium (1.8-2.4) mg/dl Total Bilirubin (0.2-1) mg/dl Direct Bilirubin (0-0.2) mg/dl AST (15-37) U/L ALT (12-78) U/L Alkaline Phosphatase (45-117) U/L Troponin I (0-0.045) ng/ml Total Protein (6.4-8.2) gm/dl Albumin (3.4-5.0) gm/dl Amylase (25-115) U/L Lipase (73-393) U/L Beta-Hydroxybutyric Acd (0.2-2.81) mg/dl Procalcitonin (0-0.5) ng/ml TSH (0.300-4.500) uIu/ml Urine Color Urine Appearance (Clear) Urine pH (4.5-7.5) Ur Specific [place] (1.000-1.030) Urine Protein (Negative) Urine Glucose (UA) (Negative) Urine Ketones (Negative) Urine Blood (Negative) Urine Nitrite (Negative) Urine Bilirubin (Negative) Urine Urobilinogen (Negative) Ur Leukocyte Esterase (Negative) Urine Opiates Screen (Neg) U Codeine Confrm GC/MS Ur Morphine (GC/MS) Ur Hydrocodone (GC/MS) Ur Norhydrocodone Ur Noroxycodone Urine Oxycodone (GC/MS) U Oxymorphone GC/MS Ur Methadone, Qual (Neg) Ur Hydromorphone (GC/MS) Urine Barbiturates (Neg) Ur Phencyclidine (PCP) (Neg) U Amphetamin/Meth Scrn (Neg) MDMA (Ecstasy) Screen (Neg) U Benzodiazepines Scrn (Neg) Ur Cocaine Metabolite (Neg) U Marijuana (THC) Screen (Neg) Drug Screen Comment Ethyl Alcohol mg/dL (0-3) mg/dl
--- NOTE | 2019-09-24 19:24 | Hospitalist Progress Note ---
Date of Service September 24, 2019 Assessment & Plan (1) Alcohol withdrawal: Abdominal pain secondary to acute gastroenteritis rule out C. difficile hx chronic pain/narcotic abuse as per records/terminated medication agreement ro cdif ADD/mood disorder as per records, at baseline DM2 on oral meds, suboptimal control as of recent outpatient hemoglobin A1c of 7.8, August 2019 History of PE as per records Medical telemetry DT precautions Judicious narcotic use given history drug abuse as per records Stool C. difficile Basal insulin, ISS BG goal [id number], carb count coverage DVT prophylaxis per Lovenox subcu Full code Text document was generated using DragonWave recognition software. It may contain grammatical or spelling errors. Kindly contact undersigned for clarification of any documentation item in question. (2) Intractable abdominal pain: History of alcoholism, chronic pancreatitis --Possible gastritis, peptic ulcer disease, evolving pancreatitis? --Reports going back to drinking alcohol, admits last drink was yesterday, 3 bottles of beer Alcohol level 197 --Lipase 38 CT abdomen pelvis: 1. No bowel wall thickening or obstruction. 2. No change in the pancreatic atrophy. No peripancreatic inflammatory change to suggest acute pancreatitis. 3. Additional stable findings as described above. --Keep n.p.o., Protonix p.o. IV fluids Ofirmev every 8 hours, PRN tramadol Follow-up stool for C. difficile Repeat lipase and CBC, BMP in a.m. --GI consulted Recommending outpatient EGD and colonoscopy Alcoholism --Apparently patient is undergoing outpatient alcohol rehab per high risk case manager --Admits to drinking again, last drink yesterday, 3 bottles of beer --No signs of alcohol withdrawal today Continue gabapentin taper, alcohol withdrawal protocol Monitor closely History of diabetes type 2 --Check hemoglobin A1c --Insulin sliding scale with NovoLog for now Lactic acid elevation --Improving --Continue IV fluids, monitor History of substance abuse --Avoid narcotic medications DVT prophylaxis SCDs only for now in light of tractable abdominal pain, possible gastritis, peptic ulcer disease Disposition Pending Lives with mother at home Currently undergoing outpatient alcohol rehab Admission and Anticipated Discharge Date Admission Date: September 24, 2019 Subjective Follow-up for abdominal pain, nausea and vomiting Seen resting in bed, sleeping, easily awakened Reports persistent epigastric pain, radiating to the back, sharp Last bowel movement was previous night, semi-formed, no hematochezia noted Denies nausea, chest pain, shortness of breath, headache, dizziness at the time of my exam No tremors noted No other symptoms Review of Systems Review of Systems: All systems reviewed & are unremarkable except as noted in HPI & below Physical Exam Physical Exam: General- oriented x 3, not in distress, speaks in sentences with no effort or accessory muscle use Head- atraumatic Eyes- PERRL, EOMI, anicteric ENT- oropharynx clear Neck- supple, no JVD, no adenopathy, no thyromegaly; carotids +2/2, no bruits appreciated Lungs- clear to auscultation bilaterally, no rales/wheezes Heart- normal rate, regular rhythm; no murmur, no gallop, no rub appreciated Abdomen- normal bowel sounds, nondistended, soft, mild tenderness in all quadrants, no masses or hepatosplenomegaly Extremities- no pretibial edema, no calf tenderness; peripheral pulses intact Neuro- alert, oriented x 3; CN 2-12 grossly intact; motor 5/5 bilaterally;sensation 100% on all extremities; no other gross focal neurologic deficits Skin- warm & dry Results & Data ([facility]) Vital Signs (Past 12 Hours) Vital Signs Temp Pulse Pulse Resp BP Pulse Ox 09/24/19 15:42 91 H 09/24/19 15:38 36.5 C 92 H 18 98/53 L 94 09/24/19 11:17 36.4 C L 77 18 109/65 93 09/24/19 11:03 104 H 09/24/19 07:27 36.3 C L 105 H 18 92/53 L 92 Laboratory Results Laboratory Results - last 24 hr 09/24/19 09/24/19 09/24/19 01:17 01:17 01:17 WBC RBC Hgb Hct MCV MCH MCHC RDW Std Deviation RDW Coeff of Gucci Plt Count MPV Immature Gran % (Auto) Neut % (Auto) Lymph % (Auto) Edwards % (Auto) Eos % (Auto) Baso % (Auto) Immature Gran # (Auto) Neut # (Auto) Lymph # (Auto) Edwards # (Auto) Eos # (Auto) Baso # (Auto) PT 10.7 INR 1.0 APTT 24.1 PTT Ratio 0.9 Sodium 137 Potassium 3.6 Chloride 103 Carbon Dioxide 26 Anion Gap 8.0 BUN 8 Creatinine 1.06 Est Cr Clr Drug Dosing 110.6 Est GFR ( Amer) 97.8 Est GFR (Non-Af Amer) 84.3 BUN/Creatinine Ratio 7.5 L Glucose 312 H* POC Glucose Lactate Calcium 9.1 Magnesium 2.0 Total Bilirubin 0.5 Direct Bilirubin 0.1 AST 8 L ALT 23 Alkaline Phosphatase 95 Troponin I < 0.015 Total Protein 7.8 Albumin 3.7 Amylase 22 L Lipase 38 L Beta-Hydroxybutyric Acd 2.22 Procalcitonin TSH Urine Color Urine Appearance Urine pH Ur Specific Callao Urine Protein Urine Glucose (UA) Urine Ketones Urine Blood Urine Nitrite Urine Bilirubin Urine Urobilinogen Ur Leukocyte Esterase Urine Opiates Screen U Codeine Confrm GC/MS Ur Morphine (GC/MS) Ur Hydrocodone (GC/MS) Ur Norhydrocodone Ur Noroxycodone Urine Oxycodone (GC/MS) U Oxymorphone GC/MS Ur Methadone, Qual Ur Hydromorphone (GC/MS) Urine Barbiturates Ur Phencyclidine (PCP) U Amphetamin/Meth Scrn MDMA (Ecstasy) Screen U Benzodiazepines Scrn Ur Cocaine Metabolite U Marijuana (THC) Screen Drug Screen Comment Ethyl Alcohol mg/dL 197.0 H 09/24/19 09/24/19 09/24/19 01:17 01:17 02:30 WBC 5.42 RBC 5.07 Hgb 16.1 Hct 45.1 MCV 89.0 MCH 31.8 MCHC 35.7 RDW Std Deviation 39.7 RDW Coeff of Gucci 12.5 Plt Count 188 MPV 9.9 Immature Gran % (Auto) 0.2 Neut % (Auto) 52.4 Lymph % (Auto) 36.7 Edwards % (Auto) 5.5 Eos % (Auto) 4.8 Baso % (Auto) 0.4 Immature Gran # (Auto) 0.01 Neut # (Auto) 2.84 Lymph # (Auto) 1.99 Edwards # (Auto) 0.30 Eos # (Auto) 0.26 Baso # (Auto) 0.02 PT INR APTT PTT Ratio Sodium Potassium Chloride Carbon Dioxide Anion Gap BUN Creatinine Est Cr Clr Drug Dosing Est GFR ( Amer) Est GFR (Non-Af Amer) BUN/Creatinine Ratio Glucose POC Glucose Lactate 5.4 H* Calcium Magnesium Total Bilirubin Direct Bilirubin AST ALT Alkaline Phosphatase Troponin I Total Protein Albumin Amylase Lipase Beta-Hydroxybutyric Acd Procalcitonin TSH Urine Color Yellow Urine Appearance Clear Urine pH 5.0 Ur Specific Callao 1.016 Urine Protein Negative Urine Glucose (UA) 3+ H Urine Ketones Negative Urine Blood Negative Urine Nitrite Negative Urine Bilirubin Negative Urine Urobilinogen Negative Ur Leukocyte Esterase Negative Urine Opiates Screen U Codeine Confrm GC/MS Ur Morphine (GC/MS) Ur Hydrocodone (GC/MS) Ur Norhydrocodone Ur Noroxycodone Urine Oxycodone (GC/MS) U Oxymorphone GC/MS Ur Methadone, Qual Ur Hydromorphone (GC/MS) Urine Barbiturates Ur Phencyclidine (PCP) U Amphetamin/Meth Scrn MDMA (Ecstasy) Screen U Benzodiazepines Scrn Ur Cocaine Metabolite U Marijuana (THC) Screen Drug Screen Comment Ethyl Alcohol mg/dL 09/24/19 09/24/19 09/24/19 02:30 02:30 03:22 WBC RBC Hgb Hct MCV MCH MCHC RDW Std Deviation RDW Coeff of Gucci Plt Count MPV Immature Gran % (Auto) Neut % (Auto) Lymph % (Auto) Edwards % (Auto) Eos % (Auto) Baso % (Auto) Immature Gran # (Auto) Neut # (Auto) Lymph # (Auto) Edwards # (Auto) Eos # (Auto) Baso # (Auto) PT INR APTT PTT Ratio Sodium Potassium Chloride Carbon Dioxide Anion Gap BUN Creatinine Est Cr Clr Drug Dosing Est GFR ( Amer) Est GFR (Non-Af Amer) BUN/Creatinine Ratio Glucose POC Glucose Lactate Calcium Magnesium Total Bilirubin Direct Bilirubin AST ALT Alkaline Phosphatase Troponin I Total Protein Albumin Amylase Lipase Beta-Hydroxybutyric Acd Procalcitonin < 0.05 TSH Urine Color Urine Appearance Urine pH Ur Specific Callao Urine Protein Urine Glucose (UA) Urine Ketones Urine Blood Urine Nitrite Urine Bilirubin Urine Urobilinogen Ur Leukocyte Esterase Urine Opiates Screen Pos H U Codeine Confrm GC/MS Pending Ur Morphine (GC/MS) Pending Ur Hydrocodone (GC/MS) Pending Ur Norhydrocodone Pending Ur Noroxycodone Pending Urine Oxycodone (GC/MS) Pending U Oxymorphone GC/MS Pending Ur Methadone, Qual Neg Ur Hydromorphone (GC/MS) Pending Urine Barbiturates Neg Ur Phencyclidine (PCP) Neg U Amphetamin/Meth Scrn Neg MDMA (Ecstasy) Screen Neg U Benzodiazepines Scrn Neg Ur Cocaine Metabolite Neg U Marijuana (THC) Screen Neg Drug Screen Comment Pending Ethyl Alcohol mg/dL 09/24/19 09/24/19 09/24/19 03:22 03:32 05:51 WBC RBC Hgb Hct MCV MCH MCHC RDW Std Deviation RDW Coeff of Ugcci Plt Count MPV Immature Gran % (Auto) Neut % (Auto) Lymph % (Auto) Edwards % (Auto) Eos % (Auto) Baso % (Auto) Immature Gran # (Auto) Neut # (Auto) Lymph # (Auto) Edwards # (Auto) Eos # (Auto) Baso # (Auto) PT INR APTT PTT Ratio Sodium Potassium Chloride Carbon Dioxide Anion Gap BUN Creatinine Est Cr Clr Drug Dosing Est GFR ( Amer) Est GFR (Non-Af Amer) BUN/Creatinine Ratio Glucose POC Glucose 213 H Lactate 4.9 H* Calcium Magnesium Total Bilirubin Direct Bilirubin AST ALT Alkaline Phosphatase Troponin I Total Protein Albumin Amylase Lipase Beta-Hydroxybutyric Acd Procalcitonin TSH 2.900 Urine Color Urine Appearance Urine pH Ur Specific Callao Urine Protein Urine Glucose (UA) Urine Ketones Urine Blood Urine Nitrite Urine Bilirubin Urine Urobilinogen Ur Leukocyte Esterase Urine Opiates Screen U Codeine Confrm GC/MS Ur Morphine (GC/MS) Ur Hydrocodone (GC/MS) Ur Norhydrocodone Ur Noroxycodone Urine Oxycodone (GC/MS) U Oxymorphone GC/MS Ur Methadone, Qual Ur Hydromorphone (GC/MS) Urine Barbiturates Ur Phencyclidine (PCP) U Amphetamin/Meth Scrn MDMA (Ecstasy) Screen U Benzodiazepines Scrn Ur Cocaine Metabolite U Marijuana (THC) Screen Drug Screen Comment Ethyl Alcohol mg/dL 09/24/19 09/24/19 09/24/19 07:38 08:18 09:33 WBC 3.55 L RBC 4.27 L Hgb 13.6 L Hct 38.4 L MCV 89.9 MCH 31.9 MCHC 35.4 RDW Std Deviation 41.3 RDW Coeff of Gucci 12.7 Plt Count 140 MPV 9.5 Immature Gran % (Auto) 0.3 Neut % (Auto) 45.6 Lymph % (Auto) 42.5 Edwards % (Auto) 8.2 Eos % (Auto) 3.1 Baso % (Auto) 0.3 Immature Gran # (Auto) 0.01 Neut # (Auto) 1.62 Lymph # (Auto) 1.51 Edwards # (Auto) 0.29 Eos # (Auto) 0.11 Baso # (Auto) 0.01 PT INR APTT PTT Ratio Sodium Potassium Chloride Carbon Dioxide Anion Gap BUN Creatinine Est Cr Clr Drug Dosing Est GFR ( Amer) Est GFR (Non-Af Amer) BUN/Creatinine Ratio Glucose POC Glucose 232 H Lactate 3.4 H* Calcium Magnesium Total Bilirubin Direct Bilirubin AST ALT Alkaline Phosphatase Troponin I Total Protein Albumin Amylase Lipase Beta-Hydroxybutyric Acd Procalcitonin TSH Urine Color Urine Appearance Urine pH Ur Specific Callao Urine Protein Urine Glucose (UA) Urine Ketones Urine Blood Urine Nitrite Urine Bilirubin Urine Urobilinogen Ur Leukocyte Esterase Urine Opiates Screen U Codeine Confrm GC/MS Ur Morphine (GC/MS) Ur Hydrocodone (GC/MS) Ur Norhydrocodone Ur Noroxycodone Urine Oxycodone (GC/MS) U Oxymorphone GC/MS Ur Methadone, Qual Ur Hydromorphone (GC/MS) Urine Barbiturates Ur Phencyclidine (PCP) U Amphetamin/Meth Scrn MDMA (Ecstasy) Screen U Benzodiazepines Scrn Ur Cocaine Metabolite U Marijuana (THC) Screen Drug Screen Comment Ethyl Alcohol mg/dL 09/24/19 09/24/19 09/24/19 09:33 11:46 16:13 WBC RBC Hgb Hct MCV MCH MCHC RDW Std Deviation RDW Coeff of Gucci Plt Count MPV Immature Gran % (Auto) Neut % (Auto) Lymph % (Auto) Edwards % (Auto) Eos % (Auto) Baso % (Auto) Immature Gran # (Auto) Neut # (Auto) Lymph # (Auto) Edwards # (Auto) Eos # (Auto) Baso # (Auto) PT INR APTT PTT Ratio Sodium 141 Potassium 3.7 Chloride 111 H Carbon Dioxide 23 Anion Gap 7.0 BUN 6 L Creatinine 0.73 D Est Cr Clr Drug Dosing 161.4 Est GFR ( Amer) 129.8 Est GFR (Non-Af Amer) 112.0 BUN/Creatinine Ratio 7.6 L Glucose 177 H POC Glucose 130 H 121 H Lactate Calcium 8.3 L Magnesium Total Bilirubin Direct Bilirubin AST ALT Alkaline Phosphatase Troponin I Total Protein Albumin Amylase Lipase Beta-Hydroxybutyric Acd Procalcitonin TSH Urine Color Urine Appearance Urine pH Ur Specific Callao Urine Protein Urine Glucose (UA) Urine Ketones Urine Blood Urine Nitrite Urine Bilirubin Urine Urobilinogen Ur Leukocyte Esterase Urine Opiates Screen U Codeine Confrm GC/MS Ur Morphine (GC/MS) Ur Hydrocodone (GC/MS) Ur Norhydrocodone Ur Noroxycodone Urine Oxycodone (GC/MS) U Oxymorphone GC/MS Ur Methadone, Qual Ur Hydromorphone (GC/MS) Urine Barbiturates Ur Phencyclidine (PCP) U Amphetamin/Meth Scrn MDMA (Ecstasy) Screen U Benzodiazepines Scrn Ur Cocaine Metabolite U Marijuana (THC) Screen Drug Screen Comment Ethyl Alcohol mg/dL
[2019-09-24] MEDS ORDERED: INSULIN GLARGINE SOLOSTAR 100 UNITS/ML 3 ML PEN SQ SCH (21:00)
--- NOTE | 2019-09-24 21:29 | Electrocardiogram Report ---
Test Reason : Blood Pressure : / mmHG Vent. Rate : 103 BPM Atrial Rate : 103 BPM P-R Int : 160 ms QRS Dur : 086 ms QT Int : 332 ms P-R-T Axes : 057 050 043 degrees QTc Int : 434 ms Sinus tachycardia Nonspecific ST and T wave abnormality Abnormal ECG When compared with ECG of 01-OCT-2018 20:58, Nonspecific T wave abnormality now evident in Anterior leads Confirmed by Antoni Meek ([id number]) on 09/24/2019 9:29:17 PM Referred By: REFERRED SELF Confirmed By:Antoni Meek
[2019-09-25] MEDS: GABAPENTIN 600 MG TAB PO SCH ×3 (01:00→15:58)
[2019-09-25] MEDS: ACETAMINOPHEN 1,000 MG/100 ML VIAL IV SCH ×3 (01:00→17:30)
[2019-09-25] MEDS: NSS + 20MEQ KCL 20 MEQ/1,000 ML BAG IV SCH (06:08)
[2019-09-25 07:37] LABS: Basophils # (auto) 0.02 K/uL (0-0.2); Basophils % (auto) 0.4 %; Eosinophils # (auto) 0.34 K/uL (0-0.5); Eosinophils % (auto) 6.9 %; Hematocrit (blood only) 39.2 % (42-52); Hemoglobin 13.7 g/dL (14.0-18.0); Immature Granulocytes # (auto) 0.02 K/uL (0.00-0.02); Immature Granulocytes % (auto) 0.4 %; Lymphocytes # (auto) 1.85 K/uL (1.2-3.4); Lymphocytes % (auto) 37.6 %; Mean Corpuscular Hemoglobin 32.1 pg (25-34); Mean Corpuscular Hgb Conc 34.9 g/dL (32-36); Mean Corpuscular Volume 91.8 fL (80-100); Mean Platelet Volume 9.8 fL (7.4-10.4); Monocytes # (auto) 0.47 K/uL (0.11-0.59); Monocytes % (auto) 9.6 %; Neutrophils # (auto) 2.22 K/uL (1.4-6.5); Neutrophils % (auto) 45.1 %; Platelet Count 145 K/uL (130-400); RDW Coefficient of Variation 12.9 % (11.5-14.5); Red Blood Count 4.27 M/uL (4.7-6.1); White Blood Count 4.92 K/uL (4.8-10.8)
[2019-09-25] MEDS: PANTOprazole 40 MG TAB PO SCH (07:54)
[2019-09-25] MEDS: MULTIVITAMIN TAB PO SCH (07:54)
[2019-09-25] MEDS: THIAMINE HCL 100 MG TAB PO SCH (07:54)
[2019-09-25] MEDS: PARoxetine HCL 20 MG TAB PO SCH (07:54)
[2019-09-25] MEDS: FOLIC ACID 1 MG TAB PO SCH (07:54)
[2019-09-25] MEDS: TRAMADOL HCL 50 MG TABLET PO PRN (07:56)
[2019-09-25 07:57] LABS: Albumin Level 2.6 gm/dl (3.4-5.0); BUN Creatinine Ratio 5.1 (10-20); Calcium 8.5 mg/dl (8.5-10.1); Creatinine Clr Calc Pharmacy 145.1 ml/min; Est GFR (African American) 123.2; Est GFR (Non-African American) 106.3; Potassium 4.1 mmol/L (3.5-5.1)
[2019-09-25 08:04] LABS: Albumin Globulin Ratio 0.8 (0.9-2); Globulin 3.2 gm/dl (2.5-4.0); Total Protein 5.8 gm/dl (6.4-8.2)
[2019-09-25] MEDS: INSULIN ASPART 100 UNITS/ML 3 ML PEN SC SCH ×4 (08:23→21:10)
[2019-09-25 08:32] LABS: Estimated Average Glucose 214 mg/dl; Hemoglobin A1C 9.1 % (4.5-5.6)
[2019-09-25] MEDS ORDERED: INSULIN GLARGINE SOLOSTAR 100 UNITS/ML 3 ML PEN SQ SCH ×2 (09:00)
[2019-09-25] MEDS ORDERED: FOLIC ACID 1 MG in SYRINGE 9.8 ML IV SCH (09:00)
[2019-09-25] MEDS: LORazepam 1 MG/2 ML VIAL IV PRN (09:18)
[2019-09-25] MEDS: DICYCLOMINE HCL 10 MG CAP PO SCH ×3 (09:40→21:01)
[2019-09-25] MEDS ORDERED: HYDROmorphone INJ 0.5 MG/0.5 ML SYR IV PRN (10:09)
[2019-09-25] MEDS: D5W AND 1/2NSS 1,000 ML IV SCH (10:50)
--- NOTE | 2019-09-25 12:09 | Hospitalist Progress Note ---
Date of Service September 25, 2019 Assessment & Plan (1) Intractable abdominal pain: -This is a patient who presented for abdominal pain and nausea -CT abdomen: Stable 3.2 cm right pericardial cyst. Mild dependent changes seen at the lung bases. No pneumoperitoneum. No pneumatosis. Oser decompression fusion from L4 through S1 with pedicle screws and rods. Prior cholecystectomy. Small area of focal fat within the central liver adjacent to the kelsy hepatis. No hepatic or splenic lesions identified. The adrenal glands and kidneys are unremarkable. No retroperitoneal lymphadenopathy. No hydronephrosis. The appendix is not identified and likely surgically absent. Numerous lower abdominal collateral vessels remain unchanged. No bowel wall thickening or obstruction. The main portal vein is patent. No change in the atrophy of the pancreatic tail. No peripancreatic inflammatory change to suggest acute pancreatitis. The main pancreatic duct is not identified and therefore likely normal in caliber. Tiny fat-containing umbilical hernia. IMPRESSION: 1. No bowel wall thickening or obstruction. 2. No change in the pancreatic atrophy. No peripancreatic inflammatory change to suggest acute pancreatitis. 3. Additional stable findings as described above. -no plans by gastroenterology service to do any inpatient direct visualization of GI tract (Recommended outpatient EGD and colonoscopy) -Patient reports this is not likely GERD because he does not feel reflux symptoms. does have active pantoprazole daily orders -gastroenterology recommended Bentyl which has been ordered -hospitalist also ordered carafate - pain medications titrated from acetaminophen prn and tramadol prn and adding diluadid 0.5 mg every 6 hours as needed for severe pain -prn anti-emetics, encourage liquid diet, add D5 1/2 normal saline for supportive care and hydration Type 2 diabetes mellitus without intermediate current use of insulin -hemoglobin A1c is 9.1 -Insulin sliding scale with NovoLog for now -possible that there may be component of diabetic gastroparesis involved in patient's GI symptoms -will need to plan on outpatient medication diabetes regimen, obtain medical sales consultant consultation -add senna and Miralax prn -normal TSH levels Lactic acid elevation -admission lactic acid of 5.4 -normalized on this admission with IV fluids -check CK levels History of substance abuse -minimize against excessive narcotic medications (2) Alcohol withdrawal: Alcoholism -history of alcohol misuse and undergoing outpatient alcohol rehab -no acute alcohol withdrawal symptoms at this time -Continue gabapentin taper, alcohol withdrawal protocol DVT prophylaxis SCDs, encourage ambulation Full code Admission and Anticipated Discharge Date Admission Date: September 24, 2019 Subjective Patient reports that he has not been able to eat because of the abdomen pain. no vomiting witnessed but patient declining to eat because this causes nausea. no fevers. no diarrhea. no shortness of breath. breathing on room air Review of Systems Review of Systems: All systems reviewed & are unremarkable except as noted in HPI & below Physical Exam Constitutional: cooperative Eyes: PERRL, conjunctivae normal, anicteric sclerae EOM intact bilaterally ENMT: external ear and nose normal, oropharynx normal Neck: trachea midline, no thyromegaly normal visual inspection Respiratory: normal respiratory effort, lungs clear to auscultation Cardiovascular: RRR, no murmur, no edema Gastrointestinal (Abdomen): Percussion/Palpation: abdomen soft patient reports tenderness Musculoskeletal: Head/Neck/Chest: normocephalic and head atraumatic Neurologic: PERRL, EOMI, accommodation nl, no face palsy, no dysarthria moves all extremities Psychiatric: Orientation: alert and oriented x 3 Results & Data ([facility]) Vital Signs (Past 12 Hours) Vital Signs Temp Pulse Pulse Resp BP Pulse Ox 09/25/19 11:47 36.4 C L 90 18 104/66 97 09/25/19 09:00 58 L 09/25/19 07:09 36.5 C 72 18 95/56 L 97 09/25/19 04:05 36.5 C 87 18 96/61 L 97 09/25/19 02:44 62
[2019-09-25] MEDS: SUCRALFATE 1 GM/10 ML UDC PO SCH ×3 (12:11→21:01)
[2019-09-25] MEDS ORDERED: POLYETHYLENE (MIRALAX) 17 GM PACK PO PRN (12:21)
[2019-09-25] MEDS: SENNA 8.6 MG TAB PO SCH (14:37)
[2019-09-25 16:40] LABS: Magnesium 1.6 mg/dl (1.8-2.4); Troponin I < 0.015 ng/ml (0-0.045)
[2019-09-25] MEDS: MAGNESIUM OXIDE 400 MG TAB PO SCH (17:11)
[2019-09-25] MEDS: MAGNESIUM SULFATE / D5W 1 GM/100 ML BAG IV SCH ×2 (17:11→18:08)
[2019-09-25] MEDS: HYDROmorphone INJ 0.5 MG/0.5 ML SYR IV PRN (21:02)
[2019-09-25 22:24] LABS: Magnesium 2.2 mg/dl (1.8-2.4); Troponin I < 0.015 ng/ml (0-0.045)
[2019-09-26] MEDS: TRAMADOL HCL 50 MG TABLET PO PRN (00:18)
[2019-09-26] MEDS: ACETAMINOPHEN 1,000 MG/100 ML VIAL IV SCH ×3 (01:40→17:19)
[2019-09-26] MEDS: HYDROmorphone INJ 0.5 MG/0.5 ML SYR IV PRN ×5 (01:58→23:46)
[2019-09-26] MEDS: D5W AND 1/2NSS 1,000 ML IV SCH (02:59)
[2019-09-26] MEDS: GABAPENTIN 600 MG TAB PO SCH ×2 (04:00→16:08)
--- NOTE | 2019-09-26 06:29 | Electrocardiogram Report ---
Test Reason : Blood Pressure : / mmHG Vent. Rate : 108 BPM Atrial Rate : 000 BPM P-R Int : 000 ms QRS Dur : 076 ms QT Int : 326 ms P-R-T Axes : 000 061 034 degrees QTc Int : 436 ms Sinus tachycardia Nonspecific ST and T wave abnormality Abnormal ECG When compared with ECG of 24-SEP-2019 01:16, No significant change Confirmed by Antoni Meek ([id number]) on 09/26/2019 6:28:34 AM Referred By: REFERRED SELF Confirmed By:Antoni Meek
--- NOTE | 2019-09-26 06:30 | Electrocardiogram Report ---
Test Reason : Blood Pressure : / mmHG Vent. Rate : 109 BPM Atrial Rate : 109 BPM P-R Int : 148 ms QRS Dur : 082 ms QT Int : 336 ms P-R-T Axes : 054 042 044 degrees QTc Int : 452 ms Sinus tachycardia Otherwise normal ECG When compared with ECG of 25-SEP-2019 15:52, No significant change Confirmed by Antoni Meek ([id number]) on 09/26/2019 6:29:55 AM Referred By: REFERRED SELF Confirmed By:Antoni Meek
[2019-09-26 06:50] LABS: Codeine Urine NEGATIVE ng/mL (<50); Hydrocodone Urine NEGATIVE ng/mL (<50); Hydromor Urine 242 ng/mL (<50); Morphine Urine 1240 ng/mL (<50); Norhydrocodone Conf Ur NEGATIVE ng/mL (<50); Noroxycodone Urine NEGATIVE ng/mL (<50); Oxycodone Urine NEGATIVE ng/mL (<50); Oxymorph Urine NEGATIVE ng/mL (<50)
[2019-09-26] MEDS: SENNA 8.6 MG TAB PO SCH (08:13)
[2019-09-26] MEDS: SUCRALFATE 1 GM/10 ML UDC PO SCH ×4 (08:13→20:46)
[2019-09-26] MEDS: DICYCLOMINE HCL 10 MG CAP PO SCH ×3 (08:13→20:46)
[2019-09-26] MEDS: PANTOprazole 40 MG TAB PO SCH (08:13)
[2019-09-26] MEDS: THIAMINE HCL 100 MG TAB PO SCH (08:13)
[2019-09-26] MEDS: PARoxetine HCL 20 MG TAB PO SCH (08:14)
[2019-09-26] MEDS: FOLIC ACID 1 MG TAB PO SCH (08:14)
[2019-09-26] MEDS: MULTIVITAMIN TAB PO SCH (08:14)
[2019-09-26] MEDS: INSULIN ASPART 100 UNITS/ML 3 ML PEN SC SCH ×4 (08:51→21:15)
[2019-09-26] MEDS: MAGNESIUM OXIDE 400 MG TAB PO SCH (10:19)
--- NOTE | 2019-09-26 14:44 | Hospitalist Progress Note ---
Date of Service September 26, 2019 Assessment & Plan (1) Intractable abdominal pain: -This is a patient who presented for abdominal pain and nausea -CT abdomen: Stable 3.2 cm right pericardial cyst. Mild dependent changes seen at the lung bases. No pneumoperitoneum. No pneumatosis. Oser decompression fusion from L4 through S1 with pedicle screws and rods. Prior cholecystectomy. Small area of focal fat within the central liver adjacent to the kelsy hepatis. No hepatic or splenic lesions identified. The adrenal glands and kidneys are unremarkable. No retroperitoneal lymphadenopathy. No hydronephrosis. The appendix is not identified and likely surgically absent. Numerous lower abdominal collateral vessels remain unchanged. No bowel wall thickening or obstruction. The main portal vein is patent. No change in the atrophy of the pancreatic tail. No peripancreatic inflammatory change to suggest acute pancreatitis. The main pancreatic duct is not identified and therefore likely normal in caliber. Tiny fat-containing umbilical hernia. IMPRESSION: 1. No bowel wall thickening or obstruction. 2. No change in the pancreatic atrophy. No peripancreatic inflammatory change to suggest acute pancreatitis. 3. Additional stable findings as described above. -no plans by gastroenterology service to do any inpatient direct visualization of GI tract (Recommended outpatient EGD and colonoscopy) -Patient reports this is not likely GERD because he does not feel reflux symptoms. does have active pantoprazole daily orders -gastroenterology recommended Bentyl which has been ordered -hospitalist also ordered carafate -pain medications titrated from acetaminophen prn and tramadol prn and diluadid 0.5 mg every 4 hours as needed for severe pain -prn anti-emetics -troponins negative to date and not suggestive of discomforts from acute coronary syndrome -patient wishes to try solid diet for dinner on 09/26/2019 as he has been able to keep down the liquid diet Type 2 diabetes mellitus without exterminator helper current use of insulin -hemoglobin A1c is 9.1 -Insulin sliding scale with NovoLog for now -possible that there may be component of diabetic gastroparesis involved in patient's GI symptoms -cue worker consultation saw the patient -will start patient on basal Lantus 5 units daily starting on 09/26/2019 -senna and Miralax prn -normal TSH levels Lactic acid elevation -admission lactic acid of 5.4 -normalized on this admission with IV fluids -CK levels normal History of substance abuse -minimize against excessive narcotic medications (2) Alcohol withdrawal: Alcoholism -history of alcohol misuse and undergoing outpatient alcohol rehab -no acute alcohol withdrawal symptoms at this time -Continue gabapentin taper, alcohol withdrawal protocol Hypomagnesemia -serum magnesium of 1.6 on 09/25/2019, corrected magnesium levels with supplement ation DVT prophylaxis SCDs, encourage ambulation Full code Admission and Anticipated Discharge Date Admission Date: September 24, 2019 Subjective -patient wishes to try solid diet for dinner on 09/26/2019 as he has been able to keep down the liquid diet. he still reports some abdomen and back pain. but he appears to be making progress in terms of discomfort. no chest pain. no shortness of breath. no dizziness. no vomiting Review of Systems Review of Systems: All systems reviewed & are unremarkable except as noted in HPI & below Physical Exam Constitutional: cooperative Eyes: PERRL, conjunctivae normal, anicteric sclerae EOM intact bilaterally ENMT: external ear and nose normal, oropharynx normal Neck: trachea midline, no thyromegaly normal visual inspection Respiratory: normal respiratory effort, lungs clear to auscultation Cardiovascular: RRR, no murmur, no edema Gastrointestinal (Abdomen): Percussion/Palpation: abdomen soft Musculoskeletal: Head/Neck/Chest: normocephalic and head atraumatic Neurologic: PERRL, EOMI, accommodation nl, no face palsy, no dysarthria moves all extremities Psychiatric: Orientation: alert and oriented x 3 Results & Data ([facility]) Vital Signs (Past 12 Hours) Vital Signs Temp Pulse Pulse Resp BP BP Pulse Ox 09/26/19 11:44 36.7 C 69 18 93/57 L 95 09/26/19 11:40 36.7 C 69 18 154/78 H 96 09/26/19 07:57 36.7 C 72 18 127/84 96 09/26/19 07:27 62 09/26/19 04:07 36.8 C 76 20 132/75 96
[2019-09-26] MEDS: INSULIN GLARGINE SOLOSTAR 100 UNITS/ML 3 ML PEN SC SCH (16:07)
[2019-09-27] MEDS: ACETAMINOPHEN 1,000 MG/100 ML VIAL IV SCH (01:03)
[2019-09-27 05:02] VITALS: O2SAT 96
[2019-09-27] MEDS: FOLIC ACID 1 MG TAB PO SCH (07:35)
[2019-09-27] MEDS: PARoxetine HCL 20 MG TAB PO SCH (07:35)
[2019-09-27] MEDS: MULTIVITAMIN TAB PO SCH (07:35)
[2019-09-27] MEDS: HYDROmorphone INJ 0.5 MG/0.5 ML SYR IV PRN (07:35)
[2019-09-27] MEDS: SUCRALFATE 1 GM/10 ML UDC PO SCH (07:35)
[2019-09-27] MEDS: DICYCLOMINE HCL 10 MG CAP PO SCH (07:35)
[2019-09-27] MEDS: THIAMINE HCL 100 MG TAB PO SCH (07:35)
[2019-09-27] MEDS: PANTOprazole 40 MG TAB PO SCH (07:35)
[2019-09-27] MEDS: SENNA 8.6 MG TAB PO SCH (07:35)
[2019-09-27] MEDS: MAGNESIUM OXIDE 400 MG TAB PO SCH (07:35)
[2019-09-27] MEDS: INSULIN ASPART 100 UNITS/ML 3 ML PEN SC SCH (08:39)
[2019-09-27] MEDS: INSULIN GLARGINE SOLOSTAR 100 UNITS/ML 3 ML PEN SC SCH (08:40)
--- NOTE | 2019-09-27 11:12 | Hospitalist Progress Note ---
Date of Service September 27, 2019 Assessment & Plan (1) Intractable abdominal pain: -This is a patient who presented for abdominal pain and nausea -CT abdomen: Stable 3.2 cm right pericardial cyst. Mild dependent changes seen at the lung bases. No pneumoperitoneum. No pneumatosis. Oser decompression fusion from L4 through S1 with pedicle screws and rods. Prior cholecystectomy. Small area of focal fat within the central liver adjacent to the kelsy hepatis. No hepatic or splenic lesions identified. The adrenal glands and kidneys are unremarkable. No retroperitoneal lymphadenopathy. No hydronephrosis. The appendix is not identified and likely surgically absent. Numerous lower abdominal collateral vessels remain unchanged. No bowel wall thickening or obstruction. The main portal vein is patent. No change in the atrophy of the pancreatic tail. No peripancreatic inflammatory change to suggest acute pancreatitis. The main pancreatic duct is not identified and therefore likely normal in caliber. Tiny fat-containing umbilical hernia. IMPRESSION: 1. No bowel wall thickening or obstruction. 2. No change in the pancreatic atrophy. No peripancreatic inflammatory change to suggest acute pancreatitis. 3. Additional stable findings as described above. -no plans by gastroenterology service to do any inpatient direct visualization of GI tract (Recommended outpatient EGD and colonoscopy) -Patient reports this is not likely GERD because he does not feel reflux symptoms. does have active pantoprazole daily orders -inpatient medication management of discomforts with : gastroenterology recommended Bentyl which has been ordered, hospitalist also ordered carafate, pain medications titrated from acetaminophen prn and tramadol prn and diluadid 0.5 mg every 4 hours as needed for severe pain, prn anti-emetics -troponins negative to date and not suggestive of discomforts from acute coronar y syndrome -patient wishes to try solid diet for dinner on 09/26/2019 as he has been able to keep down the liquid diet -patient tolerated the regular diet for dinner 09/26/2019 and breakfast on 09/27/2019 - he also had aberrant repeat glucose recorded as in the 30s but a correct glucose levels in the 200s, he declines further blood draw to validate accurate glucose levels and wishes to be discharged to home 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 exterminator current use of insulin with complications -hemoglobin A1c is 9.1 -Insulin sliding scale with NovoLog for now -possible that there may be component of diabetic gastroparesis involved in patient's GI symptoms -early childhood special educator consultation saw the patient -will start patient on basal Lantus 5 units daily starting on 09/26/2019 -senna and Miralax prn -normal TSH levels Lactic acid elevation -admission lactic acid of 5.4 -normalized on this admission with IV fluids -CK levels normal History of substance abuse -minimize against excessive narcotic medications (2) Alcohol withdrawal: Alcoholism (treated for potential alcohol withdrawal) -history of alcohol misuse and undergoing outpatient alcohol rehab -no acute alcohol withdrawal symptoms at this time -has been on gabapentin taper, alcohol withdrawal protocol -no acute withdrawal symptoms noted Hypomagnesemia -serum magnesium of 1.6 on 09/25/2019, corrected magnesium levels with supplementation DVT prophylaxis SCDs, encourage ambulation Full code Admission and Anticipated Discharge Date Admission Date: September 24, 2019 discharge on 09/27/2019 prescriptions sent electronically to [facility] [address] [place] [address] limit alcohol use. discharge on Lantus 5 units daily for now, patient advise to check blood sugars daily and to titrate up insulin as needed with follow up to family medical doctor other discharge medications of acetaminophen 325 mg every 6 hours as needed for pain or fever (avoid more than 2000 mg of acetaminophen in a day) Bentyl (Dicyclomine 10 mg TID) for potential GI tract spasms Sucralfate 1 gram (10 ml solution) four times a day for protecting the GI tract from potential ulcers Sennosides daily for bowel movements magnesium 400 mg daily follow up appointments 10/01/2019 11:00 AM Provider Martinez Brewster III, MD Department [facility] 11/05/2019 8:50 AM Provider Dhiraj Myers DO Department [facility] Discharge diagnosis Intractable abdominal pain, Type 2 diabetes mellitus without [place] [facility] current use of insulin with complications, Lactic acid elevation, Hypomagnesemia, History of Alcohol Use / Alcoholism (treated for potential alcohol withdrawal) Subjective -patient tolerated the regular diet for dinner 09/26/2019 and breakfast on 09/27/2019 - he also had aberrant repeat glucose recorded as in the 30s but a correct glucose levels in the 200s, he declines further blood draw to validate accurate glucose levels and wishes to be discharged to home no headache. no dizziness. no chest pain. no shortness of breath. no vomiting. has been able to make bowel movements Review of Systems Review of Systems: All systems reviewed & are unremarkable except as noted in HPI & below Physical Exam Constitutional: cooperative Eyes: PERRL, conjunctivae normal, anicteric sclerae EOM intact bilaterally ENMT: external ear and nose normal, oropharynx normal Neck: trachea midline, no thyromegaly normal visual inspection Respiratory: normal respiratory effort, lungs clear to auscultation Cardiovascular: RRR, no murmur, no edema Gastrointestinal (Abdomen): Percussion/Palpation: abdomen soft Musculoskeletal: Head/Neck/Chest: normocephalic and head atraumatic Neurologic: PERRL, EOMI, accommodation nl, no face palsy, no dysarthria moves all extremities Psychiatric: Orientation: alert and oriented x 3 Results & Data ([facility]) Vital Signs (Past 12 Hours) Vital Signs Temp Pulse Pulse Resp BP BP Pulse Ox 09/27/19 09:59 63 09/27/19 07:39 36.4 C L 61 16 124/79 96 09/27/19 05:01 36.8 C 70 17 119/80 96 09/27/19 01:52 63
--- NOTE | 2019-09-27 11:32 | Discharge Summary ---
Date of Service September 27, 2019 Admission HPI Per Admitting Provider History is obtained from the patient and records. Medical history is significant for ADD/mood disorder as per records, DM2 on oral meds, GERD, recurrent pancreatitis, alcohol abuse as per records. History of PE as per records, history of chronic pain. History narcotic abuse as per records/terminated medication agreement Recent confinement September 2017 for DKA, alcohol abuse. 1 week history of watery diarrhea symptoms, no fever, no chills. No known sick contacts, no recent travel, no recent antibiotic Rx. 2 days history of worsening central abdominal pain going to his chest with shortness of breath reminiscent of pancreatitis attack. Patient had some alcohol after being off for weeks. Subsequent emesis symptoms. Intractable abdominal pain at the ER. Patient stating that "only Dilaudid 2 mg IV every 2 hours for 2 days works for my abdominal pain when I am here." MEDICAL HISTORY: As above. SURGERIES: Appendectomy, cholecystectomy, vascular device placement. Back surgery FAMILY HISTORY: There is a family history of mood disorder. Alcoholism, heart disease. 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 Admission Exam Per Admitting Provider GENERAL: Intoxicated, looks older than stated age, no respiratory distress, alcoholic fetor, obese SKIN: Normal color, warm HEENT: Alopecia, [place] palpebral conjunctivae, no ptosis, dry buccal mucosa, poor dentition NECK : Supple, short neck, no tenderness CHEST : CTA, no tenderness HEART : Tachycardic , no obvious murmurs ABDOMEN: Some distention, epigastric tenderness EXTREMITIES : No LE swelling/tenderness, no other conspicuous deformities noted NEUROLOGIC : Coherent, no facial asymmetry, no other gross focality Principal Diagnosis Intractable abdominal pain, Type 2 diabetes mellitus without care home current use of insulin with complications, Lactic acid elevation, Hypomagnesemia, History of Alcohol Use / Alcoholism (treated for potential alcohol withdrawal) Discharge Exam Constitutional cooperative Eyes PERRL, conjunctivae normal, anicteric sclerae EOM intact bilaterally ENMT external ear and nose normal, oropharynx normal Neck trachea midline, no thyromegaly normal visual inspection Respiratory normal respiratory effort, lungs clear to auscultation Cardiovascular RRR, no murmur, no edema Gastrointestinal (Abdomen) Percussion/Palpation: abdomen soft Musculoskeletal Head/Neck/Chest: normocephalic and head atraumatic Neurologic PERRL, EOMI, accommodation nl, no face palsy, no dysarthria moves all extremities Psychiatric Orientation: alert and oriented x 3 Discharge Data Allergies Allergy/AdvReac Type Severity Reaction Status Date / Time No Known Allergies Allergy Verified 09/24/19 02:51 Consultations 09/24/19 02:47 ED Decision to Admit Stat 09/24/19 04:48 Consult Case Management - Discharge Planning Routine 09/24/19 09:11 Consult Gastroenterology Routine Ordered Studies 09/24/19 02:01 CT abd pelvis IV con only Urgent Hospital Course (1) Intractable abdominal pain: -This is a patient who presented for abdominal pain and nausea -CT abdomen: Stable 3.2 cm right pericardial cyst. Mild dependent changes seen at the lung bases. No pneumoperitoneum. No pneumatosis. Oser decompression fusion from L4 through S1 with pedicle screws and rods. Prior cholecystectomy. Small area of focal fat within the central liver adjacent to the kelsy hepatis. No hepatic or splenic lesions identified. The adrenal glands and kidneys are unremarkable. No retroperitoneal lymphadenopathy. No hydronephrosis. The appendix is not identified and likely surgically absent. Numerous lower abdominal collateral vessels remain unchanged. No bowel wall thickening or obstruction. The main portal vein is patent. No change in the atrophy of the pancreatic tail. No peripancreatic inflammatory change to suggest acute pancreatitis. The main pancreatic duct is not identified and therefore likely normal in caliber. Tiny fat-containing umbilical hernia. IMPRESSION: 1. No bowel wall thickening or obstruction. 2. No change in the pancreatic atrophy. No peripancreatic inflammatory change to suggest acute pancreatitis. 3. Additional stable findings as described above. -no plans by gastroenterology service to do any inpatient direct visualization of GI tract (Recommended outpatient EGD and colonoscopy) -Patient reports this is not likely GERD because he does not feel reflux symptoms. does have active pantoprazole daily orders -inpatient medication management of discomforts with : gastroenterology recommended Bentyl which has been ordered, hospitalist also ordered carafate, pain medications titrated from acetaminophen prn and tramadol prn and diluadid 0.5 mg every 4 hours as needed for severe pain, prn anti-emetics -troponins negative to date and not suggestive of discomforts from acute coronary syndrome -patient wishes to try solid diet for dinner on 09/26/2019 as he has been able to keep down the liquid diet -patient tolerated the regular diet for dinner 09/26/2019 and breakfast on 09/27/2019 - he also had aberrant repeat glucose recorded as in the 30s but a correct glucose levels in the 200s, he declines further blood draw to validate accurate glucose levels and wishes to be discharged to home 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 current use of insulin with complications -hemoglobin A1c is 9.1 -Insulin sliding scale with NovoLog for now -possible that there may be component of diabetic gastroparesis involved in patient's GI symptoms -patient educator consultation saw the patient -will start patient on basal Lantus 5 units daily starting on 09/26/2019 -senna and Miralax prn -normal TSH levels Lactic acid elevation -admission lactic acid of 5.4 -normalized on this admission with IV fluids -CK levels normal History of substance abuse -minimize against excessive narcotic medications (2) Alcohol withdrawal: Alcoholism (treated for potential alcohol withdrawal) -history of alcohol misuse and undergoing outpatient alcohol rehab -no acute alcohol withdrawal symptoms at this time -has been on gabapentin taper, alcohol withdrawal protocol -no acute withdrawal symptoms noted Hypomagnesemia -serum magnesium of 1.6 on 09/25/2019, corrected magnesium levels with supplementation DVT prophylaxis SCDs, encourage ambulation Full code Total Time Total Time Spent Total Time Spent (In Minutes): 40 minutes Total Time Includes: Examination of the Patient, Discharge Planning, Medication Reconciliation and Communication With Other Providers Discharge Plan Discharge Items Patient Disposition: Home - Self-Care Reason For Visit: ETOH WITHDRAWAL Discharge Diagnosis: Intractable abdominal pain, 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 Your appointment will be with Dr. Brewster instead of Dr. Myers.) Diet: Carb Consistent or DM2 Addtl Attending Provider Instructions: prescriptions sent electronically to [facility] [address] [place] [address] limit alcohol use. discharge on Lantus 5 units daily for now, patient advise to check blood sugars daily and to titrate up insulin as needed with follow up to family medical doctor other discharge medications of acetaminophen 325 mg every 6 hours as needed for pain or fever (avoid more than 2000 mg of acetaminophen in a day) Bentyl (Dicyclomine 10 mg TID) for potential GI tract spasms Sucralfate 1 gram (10 ml solution) four times a day for protecting the GI tract from potential ulcers Sennosides daily for bowel movements magnesium 400 mg daily follow up appointments 10/01/2019 11:00 AM Provider Martinez Brewster III, MD Department [facility] 11/05/2019 8:50 AM Provider Dhiraj Myers DO Department [facility] Pending Studies at Discharge: No Stand-Alone Forms: My [facility], Smoking Cessation Medications and DC Order Prescriptions: New sennosides [Senokot] 8.6 mg Tablet 8.6 mg PO QAM 10 Days Qty: 10 RF: 0 magnesium oxide 400 mg (241.3 mg magnesium) Tablet 400 mg PO QAM 5 Days Qty: 5 RF: 0 dicyclomine 10 mg Capsule 10 mg PO TID 5 Days Qty: 15 RF: 0 Lantus Solostar U-100 Insulin 100 unit/mL (3 mL) Insulin Pen 5 unit SC DAILY 30 Days Qty: 3 RF: 0 acetaminophen 325 mg tablet 325 mg PO Q6H PRN (Reason: fever or pain) 5 Days Qty: 20 RF: 0 sucralfate 100 mg/mL Suspension 10 ml PO QID 10 Days Qty: 400 RF: 0 Continued paroxetine HCl 20 mg tablet 20 mg PO DAILY RF: 0 pantoprazole 40 mg tablet,delayed release (DR/EC) 40 mg PO DAILY RF: 0 gabapentin 300 mg capsule 300 mg PO HS RF: 0 Discontinued acetaminophen [Pain Reliever] 500 mg tablet 1,000 mg PO Q6H PRN (Reason: Fever Or Pain) RF: 0 Discharge Orders: Discharge Order (Routine); Ordered 09/27/19 Ordered By: Jayesh Bowden/Other Patient Handouts: Diabetes Retirement Complications, Diabetes Resources, Diabetes Healthy Meals, Understanding Carbohydrates, Diabetes Exercise Benefits, Diabetes Living Life, Diabetes Manage A1C Test Admission Data Admit Date/Time: 09/24/19 03:53 Attending Provider: Jayesh Nieto Admit Provider: Bishop Enamorado Primary Care Provider: Dhiraj Myers Other Providers: Bishop Enamorado ; Deborah Molina Other Interventions: Discharge Summary Assessment (RN) Last Done: 09/27/19 11:13
[2019-09-27 11:58] VITALS: BP 116/74; PULSE 58; TEMP 97.7
[2019-09-27] MEDS ORDERED: GABAPENTIN 600 MG TAB PO SCH (16:00)
== END 2019-09-27 12:31 | disposition home or self-care (01) | DRG 897 ==
LOC: ED 01:02 → SUATTDRO 03:53 → 2N 03:53

== ENCOUNTER 2019-11-24 19:31 | Inpatient (IN) ==
--- NOTE | 2019-11-24 19:54 | Emergency Department Note ---
Impression & Plan Acute pancreatitis, Acute bilateral upper abdominal pain, Acute hyperglycemia, Alcohol abuse ED Provider Note NAME: RIKY MELTON AGE: 44 SEX: M ARRIVES VIA: Walk-In INFORMANT: [Patient] ED PROVIDER(S): Martinez Marx MD CHIEF COMPLAINT: Upper abdominal pain PLAN: Disposition: Admitted Condition: [Good] MEDICAL DECISION MAKING: Patient presented with upper abdominal pain. He has a history of pancreatitis and alcohol abuse. Patient states he still drinking alcohol. He has been dealing with this episode for over 2 days and has been having vomiting along with the severe pain. Patient has a difficult IV stick and it was very uncomfortable. He was given the option for an IM shot of Dilaudid as well as Phenergan. This was administered. IV team and lab were able to gain access and his blood work. He was hydrated with LR. He was given additional Dilaudid. CT imaging was performed. Labs and CT imaging consistent with pancreatitis. The patient also has an elevated alcohol level consistent with his alcoholism. He will need further management in the hospital as he has had many doses of Dilaudid IV and has pancreatitis. [facility] Patient was evaluated in the ER for further management. Triage Nursing notes reviewed and agree them. [Prior medical records reviewed] patient has a history of pancreatitis and alcohol abuse. Vital Signs: reviewed and remarkable for tachycardia Differential diagnosis: Pancreatitis, biliary pathology, appendicitis, testicular torsion, infections, diverticulitis, UTI, obstruction, mesenteric ischemia, aortic pathology, infla mmatory bowel disease, renal colic, PUD,hernia, volvulus, constipation, as well as other pathologies. ER treatment provided: IM Dilaudid 1 mg IM Phenergan 25 mg IV lactated Ringer's IV Dilaudid 1 mg times multiple doses IV insulin 10 units Diagnostics interpreted by me: ECG: Rate: 108 Rhythm: Sinus tachycardia [place]:Normal QRS:Normal ST segements:No elevation or depression Other:No PACs or PVCs Laboratory studies: [See below] an unremarkable CBC. Pseudohyponatremia noted on chemistry panel. Hyperglycemia present. Troponin negative. Lipase elevated concerning for pancreatitis. Imaging studies: The scan of the abdomen pelvis reveals signs consistent with pancreatitis. I refer you to the EMR for further details. [facility], Dr[facility] Sous[facility] HPI: The patient is a 44 year old male who presents to the Emergency Room with complaints of upper abdominal. This started 2 days ago and is worsening. The patient also notes the following associated symptoms, nausea and vomiting. The patient has found no relieving factors. Current pain is rated as 10/10. Patient is currently consuming alcohol on a regular basis. He has history of pancreatitis and alcohol abuse. Patient also notes pain radiating up towards the right chest. Pt denies LOC, headache, fevers, chills, diaphoresis, visual changes, neck pain, breathing difficulties, , back pain, melena, hematochezia, urinary symptoms, numbness, weakness, lymphadenopathy, rash, or other complaints. ROS: See above HPI for pertinent positives & negatives. A total of [10] systems reviewed and were otherwise negative. PAST MEDICAL HISTORY:[See Below] alcohol abuse, alcohol withdrawal, pancreatitis PAST SURGICAL HISTORY:[See Below] FAMILY HISTORY:[See Below] SOCIAL HISTORY:[See Below] lives with family. Alcohol. HOME MEDICATIONS:[See Below] ALLERGIES:[See Below] VITALS:[See Below] PHYSICAL EXAMINATION: GENERAL: Awake, alert, uncomfortable-appearing, in moderate distress, pacing about the room. HENT: Normocephalic, atraumatic. Oropharynx unremarkable. EYES: Normal conjunctiva. Sclera non-icteric. NECK: Inspection normal. Non-tender. Supple. No nuchal rigidity. FROM. No masses. RESPIRATORY: Clear to auscultation. No wheezes. No rales. Normal respiratory effort. CARDIAC: Tachycardic rate. Normal rhythm. No murmurs. No rubs. Extremities warm and well perfused. Pulses equal. No JVD. GI: Soft, non-distended. Upper tenderness to palpation, worse on the right. No rebound or guarding. No masses. RECTAL: Deferred. MUSCULOSKELETAL: Atraumatic. Chest examination reveals no tenderness. The back is symmetrical on inspection without obvious abnormality. There is no CVA tenderness to palpation. No joint edema. LOWER EXTREMITIES: Calves are equal size bilaterally and non-tender. No edema. No discoloration. NEURO: Normal sensorium. No sensory or motor deficits noted. SKIN: No rash or jaundice noted. ED COURSE: [Critical Care:] [None] Martinez Marx MD Past Med/Surg History Social History Preferred Language: Turkish Communication Ability: [employer] Required: No Beliefs That Will Affect Care: None Current Living Situation: Family Current Living Situation Comment: with mother Feels Safe at Home: Yes Smoking Status: Current every day smoker Tobacco Type: smokeless tobacco ; Second Hand Exposure: Yes ; Hx Alcohol Use: Yes Alcohol type: beer Hx Substance Use: No Allergies Allergies Allergy/AdvReac Type Severity Reaction Status Date / Time No Known Allergies Allergy Verified 11/24/19 20:10 Home Meds Home Medications Medication Instructions Recorded Confirmed pantoprazole 40 mg PO DAILY 09/16/18 11/24/19 paroxetine HCl 20 mg PO DAILY 09/16/18 11/24/19 gabapentin 300 mg PO HS 09/24/19 11/24/19 Previous Rx's Medication Instructions Recorded famotidine 20 mg PO BID #20 tab 09/30/19 Results & Data (ED) Vital Signs Vital Signs - 24 hr 11/24/19 19:36 11/24/19 20:39 11/24/19 21:15 Temperature 36.5 C Temperature Source Oral Pulse Rate 119 H Pulse Rate [Right Finger] 109 H 139 H Respiratory Rate 18 19 19 Blood Pressure 147/91 H Blood Pressure [Right Arm] 108/75 123/90 Blood Pressure Mean 109 Blood Pressure Mean [Right Arm] 86 101 Pulse Oximetry 97 97 95 Oxygen Delivery Method Room Air Sepsis Recent Fever Within 48 Hours No Sepsis New/Unexplained Change in Mental Status No Sepsis Action Taken by Nursing No Action Required 11/24/19 22:37 Temperature Temperature Source Pulse Rate Pulse Rate [Right Finger] 125 H Respiratory Rate 19 Blood Pressure Blood Pressure [Right Arm] 118/84 Blood Pressure Mean Blood Pressure Mean [Right Arm] 95 Pulse Oximetry 95 Oxygen Delivery Method Sepsis Recent Fever Within 48 Hours Sepsis New/Unexplained Change in Mental Status Sepsis Action Taken by Nursing Laboratory Data Result diagrams: 11/24/19 20:27 11/24/19 20:27 Lab Results 11/24/19 11/24/19 11/24/19 Range/Units 20:27 20:27 20:27 WBC 8.49 (4.8-10.8) K/uL RBC 5.19 (4.7-6.1) M/uL Hgb 17.7 (14.0-18.0) g/dL Hct 48.0 (42-52) % MCV 92.5 (80-100) fL MCH 34.1 H (25-34) pg MCHC 36.9 H (32-36) g/dL RDW Std Deviation 43.1 (36.4-46.3) fL RDW Coeff of Gucci 12.7 (11.5-14.5) % Plt Count 187 (130-400) K/uL MPV 9.1 (7.4-10.4) fL Immature Gran % (Auto) 0.1 % Neut % (Auto) 71.0 % Lymph % (Auto) 18.6 % [place] % (Auto) 7.9 % Eos % (Auto) 2.0 % Baso % (Auto) 0.4 % Immature Gran # (Auto) 0.01 (0.00-0.02) K/uL Neut # (Auto) 6.03 (1.4-6.5) K/uL Lymph # (Auto) 1.58 (1.2-3.4) K/uL [place] # (Auto) 0.67 H (0.11-0.59) K/uL Eos # (Auto) 0.17 (0-0.5) K/uL Baso # (Auto) 0.03 (0-0.2) K/uL Sodium 126 L (136-145) mmol/L Potassium 3.6 (3.5-5.1) mmol/L Chloride 97 L (98-107) mmol/L Carbon Dioxide 20 L (21-32) mmol/L Anion Gap 9.0 (3-11) BUN 8 (7-18) mg/dl Creatinine 1.05 (0.6-1.4) mg/dl Est Cr Clr Drug Dosing 109.0 ml/min Est GFR ( Amer) 98.2 Est GFR (Non-Af Amer) 84.7 BUN/Creatinine Ratio 7.2 L (10-20) Glucose 377 H* (70-99) mg/dl POC Glucose (70-99) mg/dl Calcium 9.2 (8.5-10.1) mg/dl Total Bilirubin 0.7 (0.2-1) mg/dl AST 32 (15-37) U/L ALT 50 (12-78) U/L Alkaline Phosphatase 96 (45-117) U/L Troponin I < 0.015 (0-0.045) ng/ml Total Protein 8.2 (6.4-8.2) gm/dl Albumin 3.6 (3.4-5.0) gm/dl Globulin 4.6 H (2.5-4.0) gm/dl Albumin/Globulin Ratio 0.8 L (0.9-2) Amylase 68 (25-115) U/L Lipase 462 H (73-393) U/L Beta-Hydroxybutyric Acd 5.20 H (0.2-2.81) mg/dl Urine Color Urine Appearance (Clear) Urine pH (4.5-7.5) Ur Specific [place] (1.000-1.030) Urine Protein (Negative) Urine Glucose (UA) (Negative) Urine Ketones (Negative) Urine Blood (Negative) Urine Nitrite (Negative) Urine Bilirubin (Negative) Urine Urobilinogen (Negative) Ur Leukocyte Esterase (Negative) Ethyl Alcohol mg/dL 264.0 H (0-3) mg/dl 11/24/19 11/24/19 Range/Units 21:16 22:35 WBC (4.8-10.8) K/uL RBC (4.7-6.1) M/uL Hgb (14.0-18.0) g/dL Hct (42-52) % MCV (80-100) fL MCH (25-34) pg MCHC (32-36) g/dL RDW Std Deviation (36.4-46.3) fL RDW Coeff of Gucci (11.5-14.5) % Plt Count (130-400) K/uL MPV (7.4-10.4) fL Immature Gran % (Auto) % Neut % (Auto) % Lymph % (Auto) % [place] % (Auto) % Eos % (Auto) % Baso % (Auto) % Immature Gran # (Auto) (0.00-0.02) K/uL Neut # (Auto) (1.4-6.5) K/uL Lymph # (Auto) (1.2-3.4) K/uL [place] # (Auto) (0.11-0.59) K/uL Eos # (Auto) (0-0.5) K/uL Baso # (Auto) (0-0.2) K/uL Sodium (136-145) mmol/L Potassium (3.5-5.1) mmol/L Chloride (98-107) mmol/L Carbon Dioxide (21-32) mmol/L Anion Gap (3-11) BUN (7-18) mg/dl Creatinine (0.6-1.4) mg/dl Est Cr Clr Drug Dosing ml/min Est GFR ( Amer) Est GFR (Non-Af Amer) BUN/Creatinine Ratio (10-20) Glucose (70-99) mg/dl POC Glucose 78 (70-99) mg/dl Calcium (8.5-10.1) mg/dl Total Bilirubin (0.2-1) mg/dl AST (15-37) U/L ALT (12-78) U/L Alkaline Phosphatase (45-117) U/L Troponin I (0-0.045) ng/ml Total Protein (6.4-8.2) gm/dl Albumin (3.4-5.0) gm/dl Globulin (2.5-4.0) gm/dl Albumin/Globulin Ratio (0.9-2) Amylase (25-115) U/L Lipase (73-393) U/L Beta-Hydroxybutyric Acd (0.2-2.81) mg/dl Urine Color Yellow Urine Appearance Clear (Clear) Urine pH 5.0 (4.5-7.5) Ur Specific [place] 1.011 (1.000-1.030) Urine Protein Negative (Negative) Urine Glucose (UA) 3+ H (Negative) Urine Ketones Negative (Negative) Urine Blood Negative (Negative) Urine Nitrite Negative (Negative) Urine Bilirubin Negative (Negative) Urine Urobilinogen Negative (Negative) Ur Leukocyte Esterase Negative (Negative) Ethyl Alcohol mg/dL (0-3) mg/dl Administered Medications Hydromorphone HCl (Dilaudid) 1 mg IV Q15M PRN PRN Reason: Pain Stop: 12/08/19 20:20 Last Admin: 11/24/19 22:37 Dose: 1 mg Documented by: [id number] Admin: 11/24/19 21:47 Dose: 1 mg Documented by: [id number] Admin: 11/24/19 20:49 Dose: 1 mg Documented by: [id number] Lactated Ringer's (Lr) 1,000 mls @ 125 mls/hr IV .Q8H RAMOS Stop: 12/24/19 20:29 Last Admin: 11/24/19 21:50 Dose: 125 mls/hr Documented by: [id number] Ioversol (Optiray 320 100ml) 92 ml IV ONCE PRN PRN Reason: Interaction Checking Stop: 11/28/19 22:00 Last Admin: 11/24/19 22:02 Dose: 92 ml Documented by: [id number] Discontinued Medications Hydromorphone HCl (Dilaudid) 1 mg IM NOW STA Stop: 11/24/19 20:21 Last Admin: 11/24/19 20:27 Dose: 1 mg Documented by: [id number] Lactated Ringer's (Lr) 1,000 mls @ 999 mls/hr IV .Q1H1M ONE Stop: 11/24/19 21:21 Last Infusion: 11/24/19 21:49 Dose: 0 mls/hr Documented by: [id number] Admin: 11/24/19 20:38 Dose: 999 mls/hr Documented by: [id number] Insulin Human Regular (Novolin R U-100 Per Unit) 10 units IV NOW STA Stop: 11/24/19 21:28 Last Admin: 11/24/19 21:47 Dose: 10 units Documented by: [id number] Cosigned by: [id number] Promethazine HCl (Phenergan) 25 mg IM NOW STA Stop: 11/24/19 20:22 Last Admin: 11/24/19 20:27 Dose: 25 mg Documented by: [id number] Discharge Plan Visit Data Chief Complaint: GI Assessment Stated Complaint: RIGHTSIDE STOMACH PAIN, RIGHTSIDE LOWER BACK PAIN ED Provider: Martinez Marx Discharge Problem: Acute pancreatitis, Acute bilateral upper abdominal pain, Acute hyperglycemia, Alcohol abuse Forms Stand Alone Forms: My [facility] [place] [employer] Prescriptions Prescriptions: No Action paroxetine HCl 20 mg tablet 20 mg PO DAILY RF: 0 pantoprazole 40 mg tablet,delayed release (DR/EC) 40 mg PO DAILY RF: 0 gabapentin 300 mg capsule 300 mg PO HS RF: 0 famotidine 20 mg tablet 20 mg PO BID Qty: 20 RF: 0 Referrals Referrals: Dhiraj Myers DO [Primary Care Provider] -
[2019-11-24] MEDS ORDERED: HYDROmorphone INJ 1 MG/ML SYRINGE IM STA (20:20)
[2019-11-24] MEDS ORDERED: PROMETHAZINE HCL INJ 25 MG/ML 1 ML VIAL IM STA (20:21)
[2019-11-24] MEDS ORDERED: LACTATED RINGER'S 1,000 ML IV ONE (20:21)
[2019-11-24] MEDS ORDERED: LACTATED RINGER'S 1,000 ML IV SCH (20:30)
[2019-11-24 20:46] LABS: Basophils # (auto) 0.03 K/uL (0-0.2); Basophils % (auto) 0.4 %; Eosinophils # (auto) 0.17 K/uL (0-0.5); Hemoglobin 17.7 g/dL (14.0-18.0); Immature Granulocytes # (auto) 0.01 K/uL (0.00-0.02); Immature Granulocytes % (auto) 0.1 %; Lymphocytes # (auto) 1.58 K/uL (1.2-3.4); Lymphocytes % (auto) 18.6 %; Mean Corpuscular Hemoglobin 34.1 pg (25-34); Mean Corpuscular Hgb Conc 36.9 g/dL (32-36); Mean Corpuscular Volume 92.5 fL (80-100); Mean Platelet Volume 9.1 fL (7.4-10.4); Monocytes # (auto) 0.67 K/uL (0.11-0.59); Monocytes % (auto) 7.9 %; Neutrophils # (auto) 6.03 K/uL (1.4-6.5); Platelet Count 187 K/uL (130-400); RDW Coefficient of Variation 12.7 % (11.5-14.5); RDW Standard Deviation 43.1 fL (36.4-46.3); Red Blood Count 5.19 M/uL (4.7-6.1); White Blood Count 8.49 K/uL (4.8-10.8)
[2019-11-24] MEDS: HYDROmorphone INJ 1 MG/ML SYRINGE IV PRN ×4 (20:49→23:25)
[2019-11-24 21:21] LABS: Alanine Aminotransferase 50 U/L (12-78); Albumin Globulin Ratio 0.8 (0.9-2); Albumin Level 3.6 gm/dl (3.4-5.0); Alkaline Phosphatase 96 U/L (45-117); Amylase 68 U/L (25-115); Aspartate Aminotransferase 32 U/L (15-37); BUN Creatinine Ratio 7.2 (10-20); Bilirubin,Total 0.7 mg/dl (0.2-1); Blood Urea Nitrogen 8 mg/dl (7-18); Calcium 9.2 mg/dl (8.5-10.1); Carbon Dioxide 20 mmol/L (21-32); Chloride 97 mmol/L (98-107); Est GFR (African American) 98.2; Est GFR (Non-African American) 84.7; Globulin 4.6 gm/dl (2.5-4.0); Glucose 377 mg/dl (70-99); Lipase 462 U/L (73-393); Potassium 3.6 mmol/L (3.5-5.1); Sodium 126 mmol/L (136-145); Total Protein 8.2 gm/dl (6.4-8.2); Troponin I < 0.015 ng/ml (0-0.045)
[2019-11-24] MEDS ORDERED: NovoLIN-R INSULIN PER UNIT CHARGE IV STA (21:27)
[2019-11-24 21:28] LABS: Appearance Urine Clear (Clear); Bilirubin Urine Negative (Negative); Blood Urine Negative (Negative); Color Urine Yellow; Glucose Urine UA 3+ (Negative); Ketones Urine Negative (Negative); Leukocyte Esterase Urine Negative (Negative); Nitrite Urine Negative (Negative); Protein Urine Negative (Negative); Specific Gravity Urine 1.011 (1.000-1.030); Urobilinogen Urine Negative (Negative)
[2019-11-24] MEDS ORDERED: IOVERSOL 100ml IV PRN (22:01)
--- NOTE | 2019-11-24 22:22 | CT Scan Report ---
ABDOMEN AND PELVIS CT WITH IV CONTRAST CT DOSE: 822.15 mGy.cm HISTORY: Acute upper abdominal pain with history of acute pancreatitis. upper abd pain, h/o pancreat itis TECHNIQUE: Multiaxial CT images of the abdomen and pelvis were performed following the IV administrat ion of 92 cc of Optiray 320, A dose lowering technique was utilized adhering to the principles of AL YOGI. COMPARISON STUDY: CT abdomen and pelvis 09/29/2019 FINDINGS: Clear lung bases. No pneumatosis or pneumoperitoneum. The imaged inferior cardiac chambers are unrema rkable. Spleen and adrenal glands are unremarkable. Possible hepatic steatosis. Cholecystectomy. Mild to moderate generalized pancreatic atrophy. There is mild interstitial and peripancreatic edema invo lving the pancreatic head, and uncinate process. Mild wall thickening of the third portion duodenum i s noted with periduodenal edema/trace free fluid. No peripancreatic fluid collection. No pancreatic d uctal dilation. Mild nonspecific bilateral perinephric stranding. Ureters and urinary bladder are unremarkable. Aorta and IVC are within normal limits. No adenopathy. No bowel obstruction. Areas of mild wall thickening throughout the large bowel are likely secondary to partial distention. Scattered small large bowel a ir-fluid levels. The appendix is not diagnostically visualized. Mid abdominal collateral vessels rede monstrated. Tiny fat filled periumbilical hernia. Prior laminectomy with posterior interbody gayathri and screw fusion and discectomy changes at L4-L5 and L5-S1. No evidence of hardware fracture or loosening . Multilevel facet arthrosis. IMPRESSION: 1. Mild acute pancreatitis, predominantly involving the pancreatic head and uncinate process. Mild wa ll thickening of the duodenum is likely on a reactive basis. 2. No pancreatic or biliary ductal dilation. 3. Cholecystectomy. 4. Scattered small and large bowel air-fluid levels suggest a mild ileus. 5. Additional findings as above. ACT 112: Negative or not required by law. The above report was generated using voice recognition software. It may contain grammatical, syntax o r spelling errors. Electronically signed by: Rick Álvarez M.D. 11/24/2019 10:21 PM
[2019-11-25] MEDS ORDERED: GABAPENTIN 1200MG ALCOHOL WITHDRAWAL LOAD PO STA (00:12)
[2019-11-25] MEDS ORDERED: ONDANSETRON INJ 2 MG/ML 2 ML VIAL IV PRN (00:12)
[2019-11-25] MEDS ORDERED: LORazepam 3 MG/6 ML VIAL IV PRN (00:12)
[2019-11-25] MEDS ORDERED: ATIVAN IV ALCOHOL WITHDRAWL IV PRN (00:12)
[2019-11-25] MEDS ORDERED: ACETAMINOPHEN 325 MG TAB PO PRN (00:12)
[2019-11-25] MEDS ORDERED: LORazepam 2 MG/4 ML VIAL IV PRN (00:12)
[2019-11-25] MEDS ORDERED: NITROGLYCERIN SL 0.4 MG/TAB TAB SL PRN (00:12)
[2019-11-25] MEDS ORDERED: LORazepam 1 MG/2 ML VIAL IV PRN (00:12)
[2019-11-25] MEDS ORDERED: GLUCAGON FOR INJ 1 MG VIAL IM PRN (00:30)
[2019-11-25] MEDS ORDERED: GLUCOSE 10 TABS/TUBE PO PRN (00:30)
[2019-11-25] MEDS ORDERED: DEXTROSE 50% 50 ML SYRINGE IV PRN (00:30)
[2019-11-25] MEDS ORDERED: CARBOHYDRATES FOR HYPOGLYCEMIA PO PRN (00:30)
[2019-11-25] MEDS ORDERED: GLUCOSE 40% GEL 15 GM TUBE PO PRN (00:30)
[2019-11-25] MEDS: LACTATED RINGER'S 1,000 ML IV SCH ×3 (00:43→17:13)
[2019-11-25] MEDS: HYDROmorphone INJ 1 MG/ML SYRINGE IV PRN ×9 (00:52→23:02)
[2019-11-25 00:57] LABS: BUN Creatinine Ratio 7.8 (10-20); Calcium 9.5 mg/dl (8.5-10.1); Creatinine Clr Calc Pharmacy 116.6 ml/min; Est GFR (African American) 108.1; Est GFR (Non-African American) 93.2; Potassium 3.8 mmol/L (3.5-5.1)
[2019-11-25] MEDS ORDERED: GABAPENTIN 600 MG TAB PO SCH (01:00)
[2019-11-25] MEDS ORDERED: MULTI-VITAMIN INFUSION 10 ML, THIAMINE HCL 100 MG, FOLIC ACID 1 MG in SODIUM CHLORIDE 0... IV ONE (01:00)
[2019-11-25] MEDS: INSULIN GLARGINE SOLOSTAR 100 UNITS/ML 3 ML PEN SC SCH ×2 (01:40→08:54)
--- NOTE | 2019-11-25 03:47 | History and Physical Report ---
DATE OF ADMISSION: 11/24/2019 CHIEF COMPLAINT: Abdominal pain. HISTORY OF PRESENT ILLNESS: This is a 44-year-old male with past medical history significant for type 2 diabetes, chronic pancreatitis, history of pulmonary embolism, not on anticoagulation, chronic sinusitis, allergic rhinitis, GERD, Renae's esophagus without dysplasia, history of sciatica, history of alcohol abuse, chronic pain syndrome, bipolar depression, generalized anxiety disorder, chews tobacco, ADHD, history of suicidal attempt, history of panic disorder, who lives with his mother who comes because of severe abdominal pain. The patient states since last 2 days, he has severe abdominal pain in the epigastric region associated with several episodes of nausea and vomiting, no blood in the vomitus. The patient has history of pancreatitis in the past. Still drinking says 6 pack of beers everyday. Last 1 week he has some runny nose. Last couple of days he has some dry cough. Denies any fever, chills. Whenever he has pain, he is getting shortness of breath and also right sided chest pain radiating to his neck and he also has some tingliness in the right first 3 fingers. He thinks it is coming from the neck and he is making appointment, and he is going to see a neurologist for that. He is requesting for strong pain medications. Has some diarrhea, but no blood in stools or black stools. Normal bladder movements. No hematuria. No swelling in the legs, no rash, no headache. He has some mild dizziness, mild blurred vision because his sugars are running high. He says sugar are running in 300-400 range at home. No earaches, no sore throat. Currently, resting comfortable and hemodynamically stable. ALLERGIES: No known drug allergies. PAST MEDICAL HISTORY: As mentioned above. PAST SURGICAL HISTORY: EGDs, EGD with endoscopic ultrasound, laparoscopic cholecystectomy, back surgery, A-port removed from the left chest wall, appendectomy. MEDICATIONS AT HOME: The patient is on gabapentin 300 mg p.o. at bedtime, metformin 1000 mg p.o. daily, Protonix 40 mg p.o. daily, Paxil 20 mg p.o. daily, baclofen 10 mg p.o. b.i.d. FAMILY HISTORY: Significant for father has depression, alcohol abuse. Aunt has manic depression. SOCIAL HISTORY: Lives with his mother, chews tobacco, 1 can a day. Alcohol, drinks 6 packs of alcohol every day, he says as per records, he did rehab around 2000 again in 2016. No drug use. REVIEW OF SYMPTOMS: As per HPI. Rest of review of symptoms negative. PHYSICAL EXAMINATION: GENERAL: The patient is of moderate build, not in acute distress. VITAL SIGNS: Temperature 36.5, pulse 120s, respiratory rate 19, blood pressure 118/84, oxygen 95% on room air. HEENT: Pupils equal, round, reactive to light. Extraocular muscles intact. NECK: No neck masses. Supple. CARDIOVASCULAR: S1, S2 heard, regular rate and rhythm, no murmur, no gallop. RESPIRATORY SYSTEM: Normal AP diameter. No accessory muscle use. No wheezing, no crackles. ABDOMEN: Soft, bowel sounds present. Tenderness in the epigastric region. Guarding present. No distention. CENTRAL NERVOUS SYSTEM: Cranial nerves II-XII grossly intact. Nonfocal. EXTREMITIES: No edema, no erythema. LABORATORY DATA: WBC 8.4, hemoglobin 17.7, hematocrit 48, platelets 187. Sodium 126, potassium 3.6, chloride 97, bicarbonate 20, BUN 8, creatinine 1.05, serum glucose 377, calcium 9.2, total bilirubin 0.7, AST 32, ALT 50, alkaline phosphatase 96. Troponin I less than 0.015, amylase 68, lipase 462. Urinalysis, +3 glucose. Ethyl alcohol 264. IMAGING: CT of abdomen and pelvis, mild acute pancreatitis, predominantly involving the pancreatic head and uncinate process, mild wall thickening of the duodenum, is likely on a reactive basis. No pancreatic or biliary ductal dilatation, scattered small and large bowel air fluid levels suggesting mild ileus. EKG: Sinus tachycardia, rate of 108, no acute ST changes seen. ASSESSMENT AND PLAN: This is a 44-year-old male who presents with severe abdominal pain and found to have acute pancreatitis. 1. Acute recurrent pancreatitis secondary to alcohol abuse,recurrent,n.p.o., IV fluids, IV Dilaudid p.r.n., IV antiemetics p.r.n. and repeat lipase in a.m. Consult GI in a.m. for further recommendations. 2. Hyponatremia: Sodium of 126, mostly pseudohyponatremia, corrected sodium is 131 as sugars are running high. Getting fluids. We will follow repeat labs. 3. Diabetes, poorly controlled: He was on metformin at home.Sugars are running as high as 300-400, it was 377. Recently admitted for DKA. He received IV insulin in the ER . We will continue with Lantus and sliding scale and follow his blood sugars, follow HbA1c levels. 4. Alcoholism, chronic: banana bag, IV thiamine, IV folic acid, gabapentin withdrawal protocol with IV Ativan p.r.n. Active protocol and close monitoring for withdrawal. On gabapentin at home, which is held, restart when gabapentin protocol is done . 5. Gastroesophageal reflux disease. Continue his famotidine . We will change Protonix to IV. 6. Bipolar depression, history of panic disorder. Continue fluoxetine. 7. Chest pain. Mostly radiating from abdomen. Will repeat Ce. 8. Deep venous thrombosis prophylaxis, sequential compression devices. DISPOSITION: Close monitoring in the med/surg tele. Level 1 full code. MTDD
[2019-11-25] MEDS: FOLIC ACID 1 MG in SYRINGE 9.8 ML IV SCH ×2 (04:16→07:36)
[2019-11-25] MEDS: THIAMINE HCL 100 MG in SYRINGE 9 ML IV SCH ×2 (04:16→07:37)
[2019-11-25 05:58] LABS: Basophils # (auto) 0.02 K/uL (0-0.2); Basophils % (auto) 0.3 %; Eosinophils # (auto) 0.16 K/uL (0-0.5); Eosinophils % (auto) 2.7 %; Hematocrit (blood only) 48.2 % (42-52); Immature Granulocytes # (auto) 0.01 K/uL (0.00-0.02); Immature Granulocytes % (auto) 0.2 %; Lymphocytes # (auto) 1.79 K/uL (1.2-3.4); Lymphocytes % (auto) 29.7 %; Mean Corpuscular Hemoglobin 33.4 pg (25-34); Mean Corpuscular Hgb Conc 35.3 g/dL (32-36); Mean Corpuscular Volume 94.7 fL (80-100); Mean Platelet Volume 9.2 fL (7.4-10.4); Monocytes # (auto) 0.65 K/uL (0.11-0.59); Monocytes % (auto) 10.8 %; Neutrophils # (auto) 3.39 K/uL (1.4-6.5); Neutrophils % (auto) 56.3 %; Platelet Count 167 K/uL (130-400); RDW Standard Deviation 44.9 fL (36.4-46.3); Red Blood Count 5.09 M/uL (4.7-6.1); White Blood Count 6.02 K/uL (4.8-10.8)
[2019-11-25] MEDS: GABAPENTIN 600 MG TAB PO SCH ×3 (06:11→21:16)
[2019-11-25 06:35] LABS: Lipase 275 U/L (73-393)
[2019-11-25 07:12] LABS: Estimated Average Glucose 220 mg/dl; Hemoglobin A1C 9.3 % (4.5-5.6)
[2019-11-25 07:56] LABS: Folate (Folic Acid) > 24.00 ng/ml (>5.38); Vitamin B12 1620 pg/ml (211-911)
[2019-11-25] MEDS: FAMOTIDINE 20 MG TAB PO SCH ×2 (08:54→21:15)
[2019-11-25] MEDS: PARoxetine HCL 20 MG TAB PO SCH (08:54)
[2019-11-25] MEDS: CEROVITE ADV FORMULA TAB PO SCH (08:54)
[2019-11-25] MEDS: INSULIN ASPART 100 UNITS/ML 3 ML PEN SC SCH ×4 (08:55→19:31)
[2019-11-25] MEDS ORDERED: PANTOprazole 40 MG in SYRINGE 0 ML IV SCH (09:00)
--- NOTE | 2019-11-25 11:18 | Electrocardiogram Report ---
Test Reason : Blood Pressure : / mmHG Vent. Rate : 108 BPM Atrial Rate : 108 BPM P-R Int : 154 ms QRS Dur : 074 ms QT Int : 330 ms P-R-T Axes : 047 044 038 degrees QTc Int : 442 ms Poor data quality, interpretation may be adversely affected Sinus tachycardia Abnormal ECG Confirmed by Danilo Grimes ([id number]) on 11/25/2019 11:18:38 AM Referred By: REFERRED SELF Confirmed By:Jere Grimes
[2019-11-25] MEDS ORDERED: Nursing to Pharmacy Communication ONE ×2 (11:32→16:29)
--- NOTE | 2019-11-25 16:06 | Hospitalist Progress Note ---
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 , recurrent admissions with ac pancreatitis , alcohol induced blood alcohol level > 200 on gabapentin ETOH withdrawal protocol prn ativan so far no overt s/s Alcohol withdrawal monitor in tele pt is counselled repeatedly regarding to quit ETOH , seek help regarding ETOH rehab -pt voiced understanding, not interested in acute rehab TYPE 2 DM /POORLY CONTROLLED hb A1c> 9 poor compliance of diabetic meds /ETOH abuse on insulin [facility] consulted for glycemic management Admission and Anticipated Discharge Date Admission Date: November 24, 2019 Subjective continues to complain of severe abdominal pain with nausea , no vomiting wants to stay on ice chips and sips of water says sips of water is making him nauseaous no fever or chills no cough or SOB no diarrhea no overt s/s of alcohol withdrawl Review of Systems Review of Systems: All systems reviewed & are unremarkable except as noted in HPI & below Respiratory: no cough, no dyspnea, no hemoptysis, no pain with cough, no sputum production and no wheezing Gastrointestinal: + abdominal pain, + nausea and + diarrhea/loose stools; no vomiting Neurologic: no gait abnormality, no localized weakness, no tremor(s) and no confusion Physical Exam Constitutional: WD/WN, vitals as above Eyes: PERRL, conjunctivae normal, anicteric sclerae ENMT: external ear and nose normal, oropharynx normal Neck: trachea midline, no thyromegaly Respiratory: normal respiratory effort, lungs clear to auscultation Cardiovascular: RRR, no murmur, no edema Gastrointestinal (Abdomen): Percussion/Palpation: + abdomen tender (epigastric tenderness) and abdomen soft Musculoskeletal: no cyanosis or clubbing, extremities motor strength 5/5 Skin: no rashes, warm and dry Neurologic: PERRL, EOMI, accommodation nl, no face palsy, no dysarthria Psychiatric: A+Ox3, euthymic affect Results & Data Results & Data ([facility]) Vital Signs (Past 12 Hours) Vital Signs Temp Pulse Pulse Resp BP Pulse Ox 11/25/19 15:19 36.8 C 94 H 18 118/66 95 11/25/19 11:28 37.0 C 83 18 113/70 97 11/25/19 09:57 70 11/25/19 07:04 36.9 C 63 18 113/[address] abdomen pelvis initial read: Focal attenuation liver segment posteriorly measuring 2.1 x 0.8 cm. Pancreatic atrophy. Mild nonspecific perinephric stranding bilaterally. Small fat- containing umbilical hernia Chest x-ray as per my interpretation no congestion EKG as per my interpretation : Rate 105, sinus tachycardia, normal axis, T wave flattening septal leads (1) Acute pancreatitis Acute pancreatitis complication: no infection or necrosis Pancreatitis type: alcohol induced Qualified Code(s): K85.20 - Alcohol induced acute pancreatitis without necrosis or infection
[2019-11-25] MEDS ORDERED: PHARMACY GLYCEMIC MGMT CONSULT PRN (16:26)
[2019-11-25] MEDS ORDERED: INSULIN GLARGINE SOLOSTAR 100 UNITS/ML 3 ML PEN SC ONE (21:00)
[2019-11-25] MEDS: PANTOprazole 40 MG TAB PO SCH (21:16)
[2019-11-26] MEDS: INSULIN ASPART 100 UNITS/ML 3 ML PEN SC SCH ×6 (00:19→20:30)
[2019-11-26] MEDS: LACTATED RINGER'S 1,000 ML IV SCH ×4 (01:13→23:20)
[2019-11-26] MEDS: HYDROmorphone INJ 1 MG/ML SYRINGE IV PRN ×10 (01:14→22:31)
[2019-11-26] MEDS: GABAPENTIN 600 MG TAB PO SCH ×2 (03:24→11:34)
[2019-11-26] MEDS: FOLIC ACID 1 MG in SYRINGE 9.8 ML IV SCH (07:55)
[2019-11-26] MEDS: THIAMINE HCL 100 MG in SYRINGE 9 ML IV SCH (07:56)
[2019-11-26] MEDS: CEROVITE ADV FORMULA TAB PO SCH (08:01)
[2019-11-26] MEDS: FAMOTIDINE 20 MG TAB PO SCH ×2 (08:01→20:23)
[2019-11-26] MEDS: PARoxetine HCL 20 MG TAB PO SCH (08:01)
[2019-11-26] MEDS: PANTOprazole 40 MG TAB PO SCH ×2 (08:01→20:23)
--- NOTE | 2019-11-26 09:05 | Hospitalist Progress Note ---
Date of Service November 26, 2019 Assessment & Plan (1) Acute pancreatitis: recurrent pancreatitis due to alcohol abuse was admitted 4 weeks back with similar diagnosis pt drinks 6 beers a day admitted with severe abdominal pain /nausea CT abdomen /pelvis shows evidence of ac pancreatis clinically improved diet advanced to clears cont IV fluid ETOH ABUSE /INTOXICATION : hx of nursing home ETOH abuse , recurrent admissions with ac pancreatitis , alcohol induced blood alcohol level > 200 on gabapentin ETOH withdrawal protocol prn ativan so far no overt s/s Alcohol withdrawal monitor in tele pt is counselled repeatedly regarding to quit ETOH , seek help regarding ETOH rehab -pt voiced understanding, not interested in acute rehab TYPE 2 DM /POORLY CONTROLLED hb A1c> 9 poor compliance of diabetic meds /ETOH abuse on insulin [facility] consulted for glycemic management -appreciate input DISPOSITION : plan to dc home in 1-2 days when medically stable Admission and Anticipated Discharge Date Admission Date: November 24, 2019 Subjective reports abdominal pain is the same nausea has resolved -feels hungry , willing for clear diet no vomiting no fever or chills no S/S of withdrawal Review of Systems Review of Systems: All systems reviewed & are unremarkable except as noted in HPI & below Gastrointestinal: + abdominal pain; no nausea, no vomiting and no diarrhea/loose stools Physical Exam Constitutional: WD/WN, vitals as above Eyes: PERRL, conjunctivae normal, anicteric sclerae ENMT: external ear and nose normal, oropharynx normal Neck: trachea midline, no thyromegaly Respiratory: normal respiratory effort, lungs clear to auscultation Cardiovascular: RRR, no murmur, no edema Gastrointestinal (Abdomen): Percussion/Palpation: + abdomen tender (epigastric tenderness) and abdomen soft Musculoskeletal: no cyanosis or clubbing, extremities motor strength 5/5 Skin: no rashes, warm and dry Neurologic: PERRL, EOMI, accommodation nl, no face palsy, no dysarthria Psychiatric: A+Ox3, euthymic affect Results & Data Results & Data ([facility]) Vital Signs (Past 12 Hours) Vital Signs Temp Pulse Pulse Resp BP BP Pulse Ox 11/26/19 07:40 69 11/26/19 07:31 36.6 C 75 18 117/72 95 11/26/19 04:00 36.9 C 75 20 140/79 94 11/25/19 23:25 80 11/25/19 23:17 36.9 C 81 19 121/[address] abdomen pelvis initial read: Focal attenuation liver segment posteriorly measuring 2.1 x 0.8 cm. Pancreatic atrophy. Mild nonspecific perinephric stranding bilaterally. Small fat- containing umbilical hernia Chest x-ray as per my interpretation no congestion EKG as per my interpretation : Rate 105, sinus tachycardia, normal axis, T wave flattening septal leads (1) Acute pancreatitis Acute pancreatitis complication: no infection or necrosis Pancreatitis type: alcohol induced Qualified Code(s): K85.20 - Alcohol induced acute pancreatitis without necrosis or infection
--- NOTE | 2019-11-26 10:06 | Pharmacy Report ---
Glycemic Control Consultation - Date of Service November 26, 2019 - Scope Scope: Glycemic Pharmacist consulted for glycemic control and to write orders per [facility] inpatient glycemic control protocol. - Objective Weight: 101.8 kg Accjuanaecks BSG (last 24hrs): 11/25/19 11/25/19 11/25/19 11:32 16:29 20:24 POC Glucose 104 H 92 74 11/25/19 11/26/19 11/26/19 21:40 00:03 01:00 POC Glucose 77 83 80 11/26/19 11/26/19 11/26/19 01:36 01:38 04:20 POC Glucose 85 86 111 H 11/26/19 06:24 POC Glucose 113 H HbA1c: Hemoglobin A1c 9.3 % (4.5-5.6) H 11/25/19 05:33 - Recent Pertinent Medications Outpatient Anti-diabetic Regimen: * Metformin 1 gm daily * A1c = 9.3 % 11/25/19 Current Inpatient Regimen and Causes of Insulin Resistance: - Assessment & Plan Assessment & Plan: ASSESSMENT: * 44 y/o male with PMH significant for T2DM, chronic pancreatitis, history of pulmonary embolism, not on anticoagulation, chronic sinusitis, allergic rhinitis, GERD, Renae's esophagus without dysplasia, history of sciatica, history of alcohol abuse, chronic pain syndrome, bipolar depression, generalized anxiety disorder, chews tobacco, ADHD, history of suicidal attempt, history of panic disorder. Admitted with complaints of abdominal pain and found to have acute pancreatitis. * Pt is maintained on oral antidiabetic agents as an outpatient * Oral agents are not recommended for inpatient use d/t drug interactions, changing PO intake, and difficulty titrating for acute hyper/hypoglycemia. ADA recommends re-initiating outpatient oral agents 1-2 days prior to discharge if/when appropriate if they were held on admission. * Will hold oral agents for admission and utilize SQ basal bolus insulin regimen which is the recommended regimen for inpatient glycemic control. * Will initiate weight based insulin dosing for insulin akash patient and titrate based on BSG trends. * Based on previous admission, patient had hypoglycemia on Lantus 5 units daily + 3-4 units of Novolog per day. Patient also had reduced PO intake at this time. BSGs came down drastically after 10 units of Lantus was given early 11/24. BSGs have been on the lower side and patient did not have PO intake yesterday. Will hold off on further basal insulin until this evening and provide a scale. PLAN FOR INPATIENT GLYCEMIC CONTROL: * Holding outpatient oral diabetes medications * Basal insulin - reduce * Lantus qHS per the following scale: * Hold for BSG < 180 * 5 units for BSG 180 or above * Bolus insulin - no change * NovoLog per scale ACHS or Q6hrs while NPO * Goal Range: Low 110 mg/dL - High 140 mg/dL * Correction Factor: 30 mg/dL/unit * Nutritional / Prandial insulin per carb ratio of 1 unit per 12 grams CHO consumed Discharge Recommendations: * A1c 9.3% on 11/25/19 * Goal A1c < 7% based on age/comorbidities * It appears that Lantus 5 units daily was to be started upon last discharge from the hospital in September; however, this is now removed from med list and patient back on metformin. Metformin is not the best option in the setting of alcohol abuse. Recommend to resume Lantus on discharge if patient willing to trial again. Thank you.
[2019-11-26] MEDS: OXYCODONE HCL IR 5 MG TAB (IMMEDIATE RELEASE) PO PRN ×2 (14:27→20:24)
[2019-11-26] MEDS ORDERED: INSULIN GLARGINE SOLOSTAR 100 UNITS/ML 3 ML PEN SC SCH (21:00)
[2019-11-26] MEDS ORDERED: GABAPENTIN 600 MG TAB PO SCH (23:00)
[2019-11-27] MEDS: HYDROmorphone INJ 1 MG/ML SYRINGE IV PRN ×5 (01:30→10:00)
[2019-11-27] MEDS: CEROVITE ADV FORMULA TAB PO SCH (08:05)
[2019-11-27] MEDS: PANTOprazole 40 MG TAB PO SCH (08:05)
[2019-11-27] MEDS: PARoxetine HCL 20 MG TAB PO SCH (08:05)
[2019-11-27] MEDS: FAMOTIDINE 20 MG TAB PO SCH (08:06)
[2019-11-27] MEDS: THIAMINE HCL 100 MG in SYRINGE 9 ML IV SCH (08:07)
[2019-11-27] MEDS: FOLIC ACID 1 MG in SYRINGE 9.8 ML IV SCH (08:07)
[2019-11-27] MEDS: INSULIN ASPART 100 UNITS/ML 3 ML PEN SC SCH (08:11)
[2019-11-27] MEDS: LACTATED RINGER'S 1,000 ML IV SCH (08:16)
[2019-11-27] MEDS ORDERED: INSULIN GLARGINE SOLOSTAR 100 UNITS/ML 3 ML PEN SC SCH (09:00)
--- NOTE | 2019-11-27 09:32 | Pharmacy Report ---
Pharmacy Glycemic Short Note 2 - Date of Service November 27, 2019 - Glycemic Short BSG Results (Last 24 hours): 11/26/19 11/26/19 11/26/19 11:32 16:24 20:18 POC Glucose 145 H 172 H 133 H 11/26/19 11/27/19 23:51 07:39 POC Glucose 277 H 180 H OUTPATIENT ANTIDIABETIC REGIMEN: * Metformin 1 gm daily * A1c = 9.3 % 11/25/19 Current Inpatient Regimen and Causes of Insulin Resistance: ASSESSMENT: 11/26 * Mr. Zeng did not receive any basal yesterday since HS BSG was only 130 mg/dL * BSGs have now started to increase since last basal doses given 11/24 AM * Will order basal scale to start this morning * PO intake also improving * Postprandial BSGs acceptable so will continue same Novolog parameters for now 11/25 * 44 y/o male with PMH significant for T2DM, chronic pancreatitis, history of pulmonary embolism, not on anticoagulation, chronic sinusitis, allergic rhinitis, GERD, Renae's esophagus without dysplasia, history of sciatica, history of alcohol abuse, chronic pain syndrome, bipolar depression, generalized anxiety disorder, chews tobacco, ADHD, history of suicidal attempt, history of panic disorder. Admitted with complaints of abdominal pain and found to have acute pancreatitis. * Pt is maintained on oral antidiabetic agents as an outpatient * Oral agents are not recommended for inpatient use d/t drug interactions, changing PO intake, and difficulty titrating for acute hyper/hypoglycemia. ADA recommends re-initiating outpatient oral agents 1-2 days prior to discharge if/when appropriate if they were held on admission. * Will hold oral agents for admission and utilize SQ basal bolus insulin regimen which is the recommended regimen for inpatient glycemic control. * Will initiate weight based insulin dosing for insulin akash patient and titrate based on BSG trends. * Based on previous admission, patient had hypoglycemia on Lantus 5 units daily + 3-4 units of Novolog per day. Patient also had reduced PO intake at this time. BSGs came down drastically after 10 units of Lantus was given early 11/24. BSGs have been on the lower side and patient did not have PO intake yesterday. Will hold off on further basal insulin until this evening and provide a scale. PLAN FOR INPATIENT GLYCEMIC CONTROL: * Hold outpatient oral diabetes medications * Basal insulin - resume this AM * Lantus qAM per the following scale: * Hold for BSG < 140 * 5 units for BSG 140 or above * Bolus insulin - no change * NovoLog per scale ACHS or Q6hrs while NPO * Goal Range: Low 110 mg/dL - High 140 mg/dL * Correction Factor: 30 mg/dL/unit * Nutritional / Prandial insulin per carb ratio of 1 unit per 12 grams CHO consumed PLAN FOR DISCHARGE: * A1c 9.3% on 11/25/19 * Goal A1c < 7% based on age/comorbidities * It appears that Lantus 5 units daily was to be started upon last discharge f rom the hospital in September; however, patient admits to not taking as prescribed. Metformin is not the best option in the setting of alcohol abuse. He has trialed several other oral options but stopped due to intolerance or contraindications. Recommend to resume Lantus 5 units daily on discharge if patient willing to trial again.
--- NOTE | 2019-11-27 11:05 | Communication Note ---
Date of Service: November 27, 2019 Pt was seen and examined. Standing in the room and upset because he did not like the way the nurse talked to him after asking for his prn Dominga. He said that was very disrespectful the way he was treating by he nurse and he wants to leave AMA. I offered him that i would ask the psychiatric nursing aide to give him another nurse that he can stay instead of signing AMA. He refused and said that he would not stay. I explained to him the risks of leaving AMA such as worsening abdominal pain associated with nausea and vomiting from the pancreatitis, dehydration, alcohol withdrawal, DT, respiratory distress and even . Pt understands the risks and refused to stay in the hospital to get medical care. Advised pt if symptoms worsening to come back to the ER or seek medical attention. MD Carlos
[2019-11-27 11:28] VITALS: PULSE 90; TEMP 98.4; O2SAT 90
[2019-11-27 14:35] VITALS: BP 130/81
--- NOTE | 2019-11-28 01:07 | Discharge Summary ---
Date of Service November 27, 2019 Admission HPI Per Admitting Provider CHIEF COMPLAINT: Abdominal pain. HISTORY OF PRESENT ILLNESS: This is a 44-year-old male with past medical history significant for type 2 diabetes, chronic pancreatitis, history of pulmonary embolism, not on anticoagulation, chronic sinusitis, allergic rhinitis, GERD, Renae's esophagus without dysplasia, history of sciatica, history of alcohol abuse, chronic pain syndrome, bipolar depression, generalized anxiety disorder, chews tobacco, ADHD, history of suicidal attempt, history of panic disorder, who lives with his mother who comes because of severe abdominal pain. The patient states since last 2 days, he has severe abdominal pain in the epigastric region associated with several episodes of nausea and vomiting, no blood in the vomitus. The patient has history of pancreatitis in the past. Still drinking says 6 pack of beers everyday. Last 1 week he has some runny nose. Last couple of days he has some dry cough. Denies any fever, chills. Whenever he has pain, he is getting shortness of breath and also right sided chest pain radiating to his neck and he also has some tingliness in the right first 3 fingers. He thinks it is coming from the neck and he is making appointment, and he is going to see a neurologist for that. He is requesting for strong pain medications. Has some diarrhea, but no blood in stools or black stools. Normal bladder movements. No hematuria. No swelling in the legs, no rash, no headache. He has some mild dizziness, mild blurred vision because his sugars are running high. He says sugar are running in 300-400 range at home. No earaches, no sore throat. Currently, resting comfortable and hemodynamically stable. Admission Exam Per Admitting Provider GENERAL: The patient is of moderate build, not in acute distress. VITAL SIGNS: Temperature 36.5, pulse 120s, respiratory rate 19, blood pressure 118/84, oxygen 95% on room air. HEENT: Pupils equal, round, reactive to light. Extraocular muscles intact. NECK: No neck masses. Supple. CARDIOVASCULAR: S1, S2 heard, regular rate and rhythm, no murmur, no gallop. RESPIRATORY SYSTEM: Normal AP diameter. No accessory muscle use. No wheezing, no crackles. ABDOMEN: Soft, bowel sounds present. Tenderness in the epigastric region. Guarding present. No distention. CENTRAL NERVOUS SYSTEM: Cranial nerves II-XII grossly intact. Nonfocal. EXTREMITIES: No edema, no erythema. Principal Diagnosis Acute pancreatitis: ETOH ABUSE /INTOXICATION : TYPE 2 DM /POORLY CONTROLLED Discharge Exam signed AMA Discharge Data Allergies Allergy/AdvReac Type Severity Reaction Status Date / Time No Known Allergies Allergy Verified 11/24/19 20:10 Consultations 11/24/19 22:19 ED Decision to Admit Stat 11/25/19 00:12 Consult Case Management - Discharge Planning Routine Ordered Studies 11/24/19 20:22 CT abd pelvis IV con only Stat ABDOMEN AND PELVIS CT WITH IV CONTRAST CT DOSE: 822.15 mGy.cm HISTORY: Acute upper abdominal pain with history of acute pancreatitis. upper abd pain, h/o pancreatitis TECHNIQUE: Multiaxial CT images of the abdomen and pelvis were performed following the IV administration of 92 cc of Optiray 320, A dose lowering technique was utilized adhering to the principles of ALARA. COMPARISON STUDY: CT abdomen and pelvis 09/29/2019 FINDINGS: Clear lung bases. No pneumatosis or pneumoperitoneum. The imaged inferior cardiac chambers are unremarkable. Spleen and adrenal glands are unremarkable. Possible hepatic steatosis. Cholecystectomy. Mild to moderate generalized pancreatic atrophy. There is mild interstitial and peripancreatic edema involving the pancreatic head, and uncinate process. Mild wall thickening of the third portion duodenum is noted with periduodenal edema/trace free fluid. No peripancreatic fluid collection. No pancreatic ductal dilation. Mild nonspecific bilateral perinephric stranding. Ureters and urinary bladder are unremarkable. Aorta and IVC are within normal limits. No adenopathy. No bowel obstruction. Areas of mild wall thickening throughout the large bowel are likely secondary to partial distention. Scattered small large bowel air-fluid levels. The appendix is not diagnostically visualized. Mid abdominal collateral vessels redemonstrated. Tiny fat filled periumbilical hernia. Prior laminectomy with posterior interbody gayathri and screw fusion and discectomy changes at L4-L5 and L5-S1. No evidence of hardware fracture or loosening. Multilevel facet arthrosis. IMPRESSION: 1. Mild acute pancreatitis, predominantly involving the pancreatic head and uncinate process. Mild wall thickening of the duodenum is likely on a reactive basis. 2. No pancreatic or biliary ductal dilation. 3. Cholecystectomy. 4. Scattered small and large bowel air-fluid levels suggest a mild ileus. 5. Additional findings as above. ACT 112: Negative or not required by law. The above report was generated using voice recognition software. It may contain grammatical, syntax or spelling errors. Electronically signed by: Rick Álvarez M.D. 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 , recurrent admissions with ac pancreatitis , alcohol induced blood alcohol level > 200 on gabapentin ETOH withdrawal protocol prn ativan so far no overt s/s Alcohol withdrawal monitor in tele pt is counselled repeatedly regarding to quit ETOH , seek help regarding ETOH rehab -pt voiced understanding, not interested in acute rehab TYPE 2 DM /POORLY CONTROLLED hb A1c> 9 poor compliance of diabetic meds /ETOH abuse on insulin [facility] consulted for glycemic management -appreciate input DISPOSITION : plan to dc home in 1-2 days when medically stable Total Time Total Time Spent Total Time Spent (In Minutes): 15 minutes Discharge Plan Discharge Items Patient Disposition: Against Medical Advice Reason For Visit: ABDOMINAL PAIN Follow-up/Referrals: Dhiraj Myers, [Primary Care Provider] - Stand-Alone Forms: [facility], Smoking Cessation Medications and DC Order Prescriptions: No Action paroxetine HCl 20 mg tablet 20 mg PO DAILY RF: 0 pantoprazole 40 mg tablet,delayed release (DR/EC) 40 mg PO DAILY RF: 0 gabapentin 300 mg capsule 300 mg PO HS RF: 0 famotidine 20 mg tablet 20 mg PO BID Qty: 20 RF: 0 metformin 500 mg tablet extended release 24 hr 1,000 mg PO DAILY RF: 0 Krames/Other Patient Handouts: Diabetes Manifold Operator Complications Admission Data Admit Date/Time: 11/24/19 23:09 Attending Provider: Beau Gonzalez Admit Provider: Jed Sousa Primary Care Provider: Dhiraj Myers Other Providers: Jed Sousa ; Claudia Chapa Other Interventions: Discharge Summary Assessment (RN) Last Done: 11/27/19 11:39 DC Date/Time DO NOT enter until pt leaves facility: 11/27/19 11:15
[2019-11-28] MEDS ORDERED: GABAPENTIN 600 MG TAB PO SCH (11:00)
== END 2019-11-27 11:15 | disposition left against medical advice (07) | DRG 439 ==
LOC: ED 19:31 → 2N 23:09 → SUATTDRO 23:09 → 2N 11-25

== ENCOUNTER 2019-12-17 20:03 | Inpatient (IN) ==
[2019-12-17] MEDS ORDERED: ONDANSETRON INJ 2 MG/ML 2 ML VIAL IV STA (20:23)
[2019-12-17] MEDS ORDERED: HYDROmorphone INJ 0.5 MG/0.5 ML SYR IV STA (20:23)
[2019-12-17] MEDS ORDERED: SODIUM CHLORIDE 0.9% 1000ML 1,000 ML IV SCH ×2 (20:30)
[2019-12-17 20:38] LABS: Basophils # (auto) 0.03 K/uL (0-0.2); Basophils % (auto) 0.5 %; Eosinophils # (auto) 0.13 K/uL (0-0.5); Eosinophils % (auto) 2.1 %; Hemoglobin 17.3 g/dL (14.0-18.0); Immature Granulocytes # (auto) 0.01 K/uL (0.00-0.02); Immature Granulocytes % (auto) 0.2 %; Lymphocytes # (auto) 1.84 K/uL (1.2-3.4); Lymphocytes % (auto) 30.1 %; Mean Corpuscular Hemoglobin 33.7 pg (25-34); Mean Corpuscular Hgb Conc 36.8 g/dL (32-36); Mean Corpuscular Volume 91.6 fL (80-100); Mean Platelet Volume 9.5 fL (7.4-10.4); Monocytes % (auto) 6.5 %; Neutrophils # (auto) 3.71 K/uL (1.4-6.5); Neutrophils % (auto) 60.6 %; Platelet Count 188 K/uL (130-400); RDW Coefficient of Variation 12.1 % (11.5-14.5); RDW Standard Deviation 40.9 fL (36.4-46.3); Red Blood Count 5.13 M/uL (4.7-6.1); White Blood Count 6.12 K/uL (4.8-10.8)
[2019-12-17 21:07] LABS: Albumin Globulin Ratio 0.8 (0.9-2); Albumin Level 3.6 gm/dl (3.4-5.0); BUN Creatinine Ratio 5.6 (10-20); Bilirubin,Total 0.5 mg/dl (0.2-1); Calcium 8.9 mg/dl (8.5-10.1); Creatinine Clr Calc Pharmacy 96.6 ml/min; Est GFR (African American) 86.1; Est GFR (Non-African American) 74.3; Globulin 4.3 gm/dl (2.5-4.0); Potassium 3.5 mmol/L (3.5-5.1); Total Protein 7.9 gm/dl (6.4-8.2)
[2019-12-17 21:19] LABS: Beta-Hydroxybutyrate 2.2 mg/dl (0.2-2.81)
[2019-12-17] MEDS ORDERED: HYDROmorphone INJ 1 MG/ML SYRINGE IV STA (21:21)
[2019-12-17 21:29] LABS: Appearance Urine Clear (Clear); Bilirubin Urine Negative (Negative); Blood Urine Negative (Negative); Color Urine Yellow; Glucose Urine UA 3+ (Negative); Ketones Urine Negative (Negative); Leukocyte Esterase Urine Negative (Negative); Nitrite Urine Negative (Negative); Protein Urine Negative (Negative); Specific Gravity Urine 1.016 (1.000-1.030); Urobilinogen Urine Negative (Negative)
[2019-12-17] MEDS ORDERED: NovoLIN-R INSULIN PER UNIT CHARGE SC STA (21:39)
[2019-12-17] MEDS ORDERED: SODIUM CHLORIDE 0.9% 1000ML 2,000 ML IV ONE (21:39)
[2019-12-17 21:47] LABS: Amphetamines+Metham, Urine Neg (Neg); Barbiturates, Urine Neg (Neg); Benzodiazepine, Urine Neg (Neg); Cocaine, Urine Neg (Neg); MDMA (Ecstacy), Urine Neg (Neg); Methadone, Urine Neg (Neg); Opiate, Urine Neg (Neg); Phencyclidine, Urine Neg (Neg)
[2019-12-17] MEDS ORDERED: IOVERSOL 100ml IV PRN (22:10)
--- NOTE | 2019-12-17 22:34 | CT Scan Report ---
CT OF THE ABDOMEN AND PELVIS WITH CONTRAST CLINICAL HISTORY: Pancreatitis. Abdominal pain. COMPARISON STUDY: CT of the abdomen and pelvis November 24, 2019. TECHNIQUE: Following IV administration of 94 mL of Optiray-320, axial images of the abdomen and pelvi s were obtained from the lung bases to the proximal femurs. Images were reviewed in the axial, sagitt al, and coronal planes. IV contrast was administered without complication. Automated exposure contro l was utilized for the study. A dose lowering technique was utilized adhering to the principles of A DARLYN. CT DOSE: 872.19 mGy.cm FINDINGS: Lung bases are unremarkable. No pneumatosis, free air or portal venous gas is present. Fatt y infiltration of the liver is noted. There is no biliary ductal dilatation status post cholecystecto my. The spleen, adrenal glands and kidneys are unremarkable. There is no hydronephrosis or hydrourete r. Pancreatic glandular atrophy is again noted. This is unchanged. There is no pancreatic ductal dila tation. Note is made of mild infiltration adjacent to the uncinate process of the pancreas. This is d ecreased when compared to exam of November 24, 2019. No peripancreatic fluid collection is noted. Periga stric varices are again noted. Postoperative findings within the spine are present. Bladder is modera tely distended. There is no evidence for a bowel obstruction. IMPRESSION: 1. Mild infiltration adjacent to the uncinate process of the pancreas suggestive of acute pancreatiti s. No peripancreatic fluid collection. 2. No biliary ductal dilatation status post cholecystectomy. 3. Fatty infiltration of the liver. 4. Distended urinary bladder. ACT 112: Negative or not required by law. Electronically signed by: Quinton Corrales M.D. 12/17/2019 10:32 PM
[2019-12-17] MEDS ORDERED: HYDROmorphone INJ 0.5 MG/0.5 ML SYR IV PRN (22:48)
[2019-12-17] MEDS ORDERED: MULTI-VITAMIN INFUSION 10 ML, THIAMINE HCL 100 MG, FOLIC ACID 1 MG in SODIUM CHLORIDE 0... IV ONE (23:12)
[2019-12-17] MEDS ORDERED: POTASSIUM CHLORIDE 20 MEQ TABCR PO STA (23:20)
[2019-12-17] MEDS ORDERED: MAGNESIUM SULFATE / D5W 1 GM/100 ML BAG IV STA (23:21)
[2019-12-17] MEDS: OXYCODONE HCL IR 5 MG TAB (IMMEDIATE RELEASE) PO PRN (23:28)
[2019-12-17] MEDS: KETOROLAC TROMETHAMINE 15 MG/ML VIAL IV PRN (23:28)
[2019-12-17] MEDS ORDERED: FAMOTIDINE 20MG IV PUSH 20 MG/5 ML SYR IV STA (23:41)
--- NOTE | 2019-12-17 23:41 | History & Physical Report ---
Date of Service December 17, 2019 Assessment & Plan (1) Alcohol withdrawal: Alcohol withdrawal Recurrent alcoholic pancreatitis ADD/mood disorder as per records, at baseline DM2 on oral meds, marked hyperglycemia upon arrival at the ER suboptimal control as of recent outpatient hemoglobin A1c of 9.08 November 2019 History of PE as per records Medical telemetry DT precautions Judicious narcotic use given history drug abuse as per records (I told patient I was not comfortable prescribing any IV narcotics for his abdominal pain.) IVF, follow lactic acid, clear liquids for now Basal insulin, ISS BG goal [id number], carb count coverage May benefit from Pharmacy glycemic control consult. DVT prophylaxis per Lovenox subcu Full code Text document was generated using [employer] voice recognition software. It may contain grammatical or spelling errors. Kindly contact undersigned for clarification of any documentation item in question. History of Present Illness Chief Complaint: Abdominal pain Primary Care Provider: Dhiraj Myers DO History is obtained from the patient and records. Medical history is significant for ADD/mood disorder as per records, DM2 on oral meds, GERD, recurrent pancreatitis, alcohol abuse as per records. History of PE as per records, history of chronic pain, hx narcotic abuse as per records/terminated medication agreement Recent confinement 3 weeks ago for recurrent alcoholic pancreatitis. Patient left hospital AGAINST MEDICAL ADVICE due to provider refusal to prescribe patient's preferred Dilaudid for abdominal pain. Patient went back to alcohol consumption shortly after discharge. Few days history of achy epigastric pain going to shoulders and chest with nausea and bilious emesis. Good BM. No fever, no chills. Poor appetite. Admits to drinking 6 beers today. At the ER, IV insulin given for blood sugars in the 400s. MEDICAL HISTORY: As above. SURGERIES: Appendectomy, cholecystectomy, vascular device placement. Back surgery FAMILY HISTORY: mood disorder. Alcoholism, heart disease. 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 Allergies Allergy/AdvReac Type Severity Reaction Status Date / Time No Known Allergies Allergy Verified 11/24/19 20:10 Home Medications Home Medications Medication Instructions Recorded Confirmed Type Unobtainable 12/17/19 12/17/19 History Past Med/Surg History Medical History Abdominal pain Acute hyperglycemia (Acute) Alcohol abuse (Chronic Unknown) Alcohol abuse (Acute) Renae's esophagus (Chronic Unknown) "per EGD 11/23/09 " On 05/31/11 09:06 Martinez Benedict Damon wrote "per EGD 11/23/09 " Chest pain Depression (Chronic) Depression (Chronic) DM type 2 (diabetes mellitus, type 2) (Chronic) Encounter for alcohol abuse counseling and surveillance (Acute) Encounter for pre-operative examination Encounter for tobacco use cessation counseling (Acute) H/O acute pancreatitis (Chronic) "recurrent" History of substance abuse (Chronic) Hyperglycemia (Acute) Intentional drug overdose (Resolved) Lumbar degenerative disc disease (Chronic) Mood disorder (Chronic) Mood disorder (Chronic) Neuropathy (Acute) Pancreatitis (Acute) Panic disorder (Chronic) Pulmonary embolism (Resolved) Suicidal ideation (Chronic) Suicidal ideation (Resolved) Suicide attempt (Resolved) Surgical History H/O esophagogastroduodenoscopy (Chronic) "EGD 11/23/2009- mild gastritis, suspicious for gastroparesis, Z-line irregular EUS 02/04/2010- mild chronic pancreatitis, pronounced cholesterolosis of gallbladder, no biliary dilation or stones, probable gastroparesis EGD 10/31/2014- gastritis" S/P lumbar fusion (Resolved) L4-S1 2014 Family History Father Alcohol abuse Social History (Updated 12/18/19 @ 00:09 by Radha Jeong MD) Preferred Language: Citizen Of [place] Communication Ability: Effective 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 Beliefs That Will Affect Care: None Current Living Situation: Parent Current Living Situation Comment: with mother Other Information That Helps Us Care for You: No Feels Safe at Home: Yes Safety Concerns: Feels Safe At This Time Smoking Status: Former smoker Tobacco Type: smokeless tobacco ; Do You Dip or Chew Tobacco: Yes ; Second Hand Exposure: Yes ; Tobacco Cessation Education Requested by Patient: No Hx Alcohol Use: Yes Alcohol type: beer Hx Substance Use: No Review of Systems Review of Systems: As per HPI, all 10 systems reviewed, all other ROS negative Physical Exam Physical Exam: GENERAL: Obese , intoxicated, no respiratory distress SKIN: Normal color, warm HEENT: Alopecia, [place] palpebral conjunctivae, no ptosis, dry buccal mucosa NECK : Supple, no tenderness CHEST : Decreased breath sounds , no tenderness HEART : Tachycardic , no obvious murmurs ABDOMEN: Some distention, epigastric tenderness EXTREMITIES : No LE swelling/tenderness, no other conspicuous deformities noted NEUROLOGIC : Coherent, no facial asymmetry, tremulous, no other gross focality Results & Data Results & Data ([facility]) Vital Signs (Past 12 Hours) Vital Signs Temp Pulse Pulse Resp BP BP Pulse Ox 12/17/19 23:10 130 H 22 140/82 92 12/17/19 22:20 33 H 12/17/19 22:17 121 H 24 12/17/19 22:00 126 H 25 H 12/17/19 21:50 122 H 5 L 12/17/19 21:40 118 H 11 L 95 12/17/19 21:31 121 H 15 95 12/17/19 21:30 119 H 15 116/63 92 12/17/19 21:20 121 H 17 12/17/19 21:10 121 H 6 L 12/17/19 21:00 21 12/17/19 20:50 122 H 15 12/17/19 20:40 23 12/17/19 20:31 115 H 21 91 12/17/19 20:30 117 H 14 125/82 94 12/17/19 20:15 121 H 17 119/77 94 12/17/19 20:04 36.7 C 128 H 22 122/88 95 Laboratory Results Laboratory Results WBC 6.12 K/uL (4.8-10.8) 12/17/19 20: RBC 5.13 M/uL (4.7-6.1) 12/17/19 20:28 Hgb 17.3 g/dL (14.0-18.0) 12/17/19 20: Hct 47.0 % (42-52) 12/17/19 20: MCV 91.6 fL (80-100) 12/17/19 20: MCH 33.7 pg (25-34) 12/17/19 20: MCHC 36.8 g/dL (32-36) H 12/17/19 20: RDW Std Deviation 40.9 fL (36.4-46.3) 12/17/19 20: RDW Coeff of [employer]cci 12.1 % (11.5-14.5) 12/17/19 Plt Count 188 K/uL (130-400) 12/17/19 MPV 9.5 fL (7.4-10.4) 12/17/19 Immature Gran % (Auto) 0.2 % 12/17/19 Neut % (Auto) 60.6 % 12/17/19: Lymph % (Auto) 30.1 % 12/17/19: [place] % (Auto) 6.5 % 12/17/19 Eos % (Auto) 2.1 % 12/17/19 Baso % (Auto) 0.5 % 12/17/19 Immature Gran # (Auto) 0.01 K/uL (0.00-0.02) 12/17/19 Neut # (Auto) 3.71 K/uL (1.4-6.5) 12/17/19 Lymph # (Auto) 1.84 K/uL (1.2-3.4) 12/17/19 [place] # (Auto) 0.40 K/uL (0.11-0.59) 12/17/19 Eos # (Auto) 0.13 K/uL (0-0.5) 12/17/19 Baso # (Auto) 0.03 K/uL (0-0.2) 12/17/19 Sodium 133 mmol/L (136-145) L 12/17/19 Potassium 3.5 mmol/L (3.5-5.1) 12/17/19 Chloride 99 mmol/L (98-107) 12/17/19 Carbon Dioxide 22 mmol/L (21-32) 12/17/19 Anion Gap 13.0 (3-11) H 12/17/19 BUN 7 mg/dl (7-18) 12/17/19 Creatinine 1.17 mg/dl (0.6-1.4) 12/17/19 Est Cr Clr Drug Dosing 96.6 ml/min 12/17/19 Est GFR ( Amer) 86.1 05/12/20 20:28 Est GFR (Non-Af Amer) 74.3 12/17/19 20: BUN/Creatinine Ratio 5.6 (10-20) L 12/17/19 20: Glucose 478 mg/dl (70-99) H* 12/17/19 20: POC Glucose 313 mg/dl (70-99) H* 12/17/19 21:55 Lactate 3.5 mmol/L (0.4-2.0) H* 12/17/19 22:22 Calcium 8.9 mg/dl (8.5-10.1) 12/17/19 20: Total Bilirubin 0.5 mg/dl (0.2-1) 12/17/19 20: AST 30 U/L (15-37) 12/17/19 20: ALT 42 U/L (12-78) 12/17/19 20: Alkaline Phosphatase 100 U/L (45-117) 12/17/19 20: Total Protein 7.9 gm/dl (6.4-8.2) 12/17/19 20: Albumin 3.6 gm/dl (3.4-5.0) 12/17/19 20: Globulin 4.3 gm/dl (2.5-4.0) H 12/17/19 20: Albumin/Globulin Ratio 0.8 (0.9-2) L 12/17/19 20: Lipase 228 U/L (73-393) 12/17/19 20: Beta-Hydroxybutyric Acd 2.20 mg/dl (0.2-2.81) 12/17/19 20: Urine Color Yellow 12/17/19 20: Urine Appearance Clear (Clear) 12/17/19 20: Urine pH 5.0 (4.5-7.5) 12/17/19 20: Ur Specific [place] 1.016 (1.000-1.030) 12/17/19 20: Urine Protein Negative (Negative) 12/17/19 20: Urine Glucose (UA) 3+ (Negative) H 12/17/19 20: Urine Ketones Negative (Negative) 12/17/19 20: Urine Blood Negative (Negative) 12/17/19 20: Urine Nitrite Negative (Negative) 12/17/19 20:50 Urine Bilirubin Negative (Negative) 12/17/19 20:50 Urine Urobilinogen Negative (Negative) 12/17/19 20:50 Ur Leukocyte Esterase Negative (Negative) 12/17/19 20:50 Urine Opiates Screen Neg (Neg) 12/17/19 20:50 Ur Methadone, Qual Neg (Neg) 12/17/19 20:50 Urine Barbiturates Neg (Neg) 12/17/19 20:50 Ur Phencyclidine (PCP) Neg (Neg) 12/17/19 20:50 U Amphetamin/Meth Scrn Neg (Neg) 12/17/19 20:50 MDMA (Ecstasy) Screen Neg (Neg) 12/17/19 20:50 U Benzodiazepines Scrn Neg (Neg) 12/17/19 20:50 Ur Cocaine Metabolite Neg (Neg) 12/17/19 20:50 U Marijuana (THC) Screen Neg (Neg) 12/17/19 20:50 Ethyl Alcohol mg/dL 301.5 mg/dl (0-3) H 12/17/19 20:[address] abdomen pelvis: 1. Mild infiltration adjacent to the uncinate process of the pancreas suggestive of acute pancreatitis. No peripancreatic fluid collection. 2. No biliary ductal dilatation status post cholecystectomy. 3. Fatty infiltration of the liver. 4. Distended urinary bladder. ED as per my interpretation: Rate 120 rate 120, sinus tachycardia, LAD normal axis, no ischemia
[2019-12-17] MEDS ORDERED: GABAPENTIN 800 MG TAB PO STA (23:47)
[2019-12-17] MEDS ORDERED: INSULIN GLARGINE SOLOSTAR 100 UNITS/ML 3 ML PEN SC STA (23:47)
[2019-12-17] MEDS ORDERED: KETOROLAC TROMETHAMINE 15 MG/ML VIAL IV STA (23:49)
--- NOTE | 2019-12-18 00:07 | Emergency Department Note ---
History of Present Illness General Chief complaint: Chest Pain Stated complaint: SOB, CHEST/SHOULDER PAIN Source: patient Mode of arrival: ambulatory Limitations: no limitations History of Present Illness Provider complaint: Abdominal pain Onset (ago): day(s) 1 Maximum Pain Intensity: 7 This patient is a 44-year-old male who presents to the emergency department with complaints of epigastric abdominal pain. The patient states he has a longstanding history of alcohol abuse and recurrent pancreatitis. Patient states he has had dry heaving intermittently throughout the day. He admits to drinking "6 beers" today, but has had little to eat. Patient denies any blood in the vomit or from the stools. He denies any fevers, chills or chest pain. Home Medications Home Medications Medication Instructions Recorded Confirmed Type Unobtainable 12/17/19 12/17/19 History Allergies Allergy/AdvReac Type Severity Reaction Status Date / Time No Known Allergies Allergy Verified 11/24/19 20:10 Past Med/Surg History Medical History Abdominal pain Acute hyperglycemia (Acute) Alcohol abuse (Chronic Unknown) Alcohol abuse (Acute) Renae's esophagus (Chronic Unknown) "per EGD 11/23/09 " On 05/31/11 09:06 Martinez Jose wrote "per EGD 11/23/09 " Chest pain Depression (Chronic) Depression (Chronic) DM type 2 (diabetes mellitus, type 2) (Chronic) Encounter for alcohol abuse counseling and surveillance (Acute) Encounter for pre-operative examination Encounter for tobacco use cessation counseling (Acute) H/O acute pancreatitis (Chronic) "recurrent" History of substance abuse (Chronic) Hyperglycemia (Acute) Intentional drug overdose (Resolved) Lumbar degenerative disc disease (Chronic) Mood disorder (Chronic) Mood disorder (Chronic) Neuropathy (Acute) Pancreatitis (Acute) Panic disorder (Chronic) Pulmonary embolism (Resolved) Suicidal ideation (Chronic) Suicidal ideation (Resolved) Suicide attempt (Resolved) Surgical History H/O esophagogastroduodenoscopy (Chronic) "EGD 11/23/2009- mild gastritis, suspicious for gastroparesis, Z-line irregular EUS 02/04/2010- mild chronic pancreatitis, pronounced cholesterolosis of gallbladder, no biliary dilation or stones, probable gastroparesis EGD 10/31/2014- gastritis" S/P lumbar fusion (Resolved) L4-S1 2014 Family History Father Alcohol abuse Social History (Updated 12/18/19 @ 00:09 by Radha Jeong MD) Preferred Language: French Communication Ability: Effective 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 and A total of 10 systems reviewed and were otherwise negative Questionably unreliable due to intoxication. Physical Exam Vital Signs Vital Signs - 24 hr 12/17/19 20:04 12/17/19 20:15 12/17/19 20:30 Temperature 36.7 C Temperature Source Oral Pulse Rate 128 H 121 H 117 H Pulse Rate [Right Finger] Pulse Rate from SpO2 Sensor 121 H 117 H Respiratory Rate 22 17 14 Blood Pressure 122/88 119/77 125/82 Blood Pressure [Right Arm] Blood Pressure Mean 99 80 93 Blood Pressure Mean [Right Arm] Pulse Oximetry 95 94 94 Oxygen Delivery Method Room Air Room Air Room Air Sepsis Recent Fever Within 48 Hours No Sepsis New/Unexplained Change in Mental Status No Sepsis Action Taken by Nursing No Action Required 12/17/19 20:31 12/17/19 20:34 12/17/19 20:40 Temperature Temperature Source Pulse Rate 115 H Pulse Rate [Right Finger] Pulse Rate from SpO2 Sensor 115 H Respiratory Rate 21 23 Blood Pressure Blood Pressure [Right Arm] Blood Pressure Mean Blood Pressure Mean [Right Arm] Pulse Oximetry 91 Oxygen Delivery Method Room Air Room Air Room Air Sepsis Recent Fever Within 48 Hours Sepsis New/Unexplained Change in Mental Status Sepsis Action Taken by Nursing 12/17/19 20:50 12/17/19 21:00 12/17/19 21:10 Temperature Temperature Source Pulse Rate 122 H 121 H Pulse Rate [Right Finger] Pulse Rate from SpO2 Sensor Respiratory Rate 15 21 6 L Blood Pressure Blood Pressure [Right Arm] Blood Pressure Mean Blood Pressure Mean [Right Arm] Pulse Oximetry Oxygen Delivery Method Room Air Room Air Room Air Sepsis Recent Fever Within 48 Hours Sepsis New/Unexplained Change in Mental Status Sepsis Action Taken by Nursing 12/17/19 21:20 12/17/19 21:30 12/17/19 21:31 Temperature Temperature Source Pulse Rate 121 H 119 H 121 H Pulse Rate [Right Finger] Pulse Rate from SpO2 Sensor 119 H 122 H Respiratory Rate 17 15 15 Blood Pressure 116/63 Blood Pressure [Right Arm] Blood Pressure Mean 74 Blood Pressure Mean [Right Arm] Pulse Oximetry 92 95 Oxygen Delivery Method Room Air Room Air Room Air Sepsis Recent Fever Within 48 Hours Sepsis New/Unexplained Change in Mental Status Sepsis Action Taken by Nursing 12/17/19 21:40 12/17/19 21:50 12/17/19 22:00 Temperature Temperature Source Pulse Rate 118 H 122 H 126 H Pulse Rate [Right Finger] Pulse Rate from SpO2 Sensor 118 H Respiratory Rate 11 L 5 L 25 H Blood Pressure Blood Pressure [Right Arm] Blood Pressure Mean Blood Pressure Mean [Right Arm] Pulse Oximetry 95 Oxygen Delivery Method Room Air Room Air Room Air Sepsis Recent Fever Within 48 Hours Sepsis New/Unexplained Change in Mental Status Sepsis Action Taken by Nursing 12/17/19 22:17 12/17/19 22:20 12/17/19 23:10 Temperature Temperature Source Pulse Rate 121 H Pulse Rate [Right Finger] 130 H Pulse Rate from SpO2 Sensor Respiratory Rate 24 33 H 22 Blood Pressure Blood Pressure [Right Arm] 140/82 Blood Pressure Mean Blood Pressure Mean [Right Arm] 101 Pulse Oximetry 92 Oxygen Delivery Method Room Air Room Air Room Air Sepsis Recent Fever Within 48 Hours Sepsis New/Unexplained Change in Mental Status Sepsis Action Taken by Nursing Vital signs reviewed. General: Intoxicated and agitated 44-year-old male, in some discomfort. HEENT: No scleral icterus, PERRLA, neck supple. Atraumatic. Cardiovascular: Tachycardic, regular Pulmonary: Clear to auscultation bilaterally, normal work of breathing. Abdomen: Soft, tender to palpation in the epigastric region Musculoskeletal: Atraumatic, no peripheral edema. Neurologic: Patient awake alert and oriented x 3 Skin: Warm, dry, no rash Course Administered Medications Multivitamins 10 ml/ Thiamine HCl 100 mg/ Folic Acid 1 mg/Sodium Chloride 1,011.2 mls @ 1,011.2 mls/hr IV .Q1H ONE Stop: 12/18/19 00:11 Last Admin: 12/17/19 23:37 Dose: 1,011.2 mls/hr Documented by: [id number] Magnesium Sulfate/Dextrose (Magnesium Sulfate / D5w) 1 gm in 100 mls @ 100 mls/hr IV NOW STA Stop: 12/18/19 00:20 Last Admin: 12/17/19 23:29 Dose: 100 mls/hr Documented by: [id number] Ioversol (Optiray 320 100ml) 94 ml IV ONCE PRN PRN Reason: Interaction Checking Stop: 12/21/19 22:09 Last Admin: 12/17/19 22:10 Dose: 94 ml Documented by: [id number] Ketorolac Tromethamine (Toradol) 15 mg IV Q6H PRN PRN Reason: Pain Stop: 12/22/19 23:04 Last Admin: 12/17/19 23:28 Dose: 15 mg Documented by: [id number] Oxycodone HCl (Roxicodone Immediate Rel) 5 mg PO Q4H PRN PRN Reason: Pain Stop: 12/31/19 23:04 Last Admin: 12/17/19 23:28 Dose: 5 mg Documented by: [id number] Discontinued Medications Hydromorphone HCl (Dilaudid) 0.5 mg IV NOW STA Stop: 12/17/19 20:24 Last Admin: 12/17/19 20:39 Dose: 0.5 mg Documented by: [id number] Hydromorphone HCl (Dilaudid) 1 mg IV NOW STA Stop: 12/17/19 21:22 Last Admin: 12/17/19 21:23 Dose: 1 mg Documented by: [id number] Hydromorphone HCl (Dilaudid) 0.5 mg IV Q30M PRN PRN Reason: Pain Stop: 12/31/19 22:47 Last Admin: 12/17/19 22:52 Dose: 0.5 mg Documented by: [id number] Sodium Chloride (Nss 1000ml) 1,000 mls @ 999 mls/hr IV .Q1H1M RAMOS Stop: 12/17/19 21:30 Last Infusion: 12/17/19 21:42 Dose: 0 mls/hr Documented by: [id number] Admin: 12/17/19 20:38 Dose: 999 mls/hr Documented by: [id number] Sodium Chloride (Nss 1000ml) 1,000 mls @ 150 mls/hr IV .Q6H40M RAMOS Stop: 01/16/20 20:29 Last Admin: 12/17/19 23:16 Dose: Not Given Documented by: [id number] Sodium Chloride (Nss 1000ml) 2,000 mls @ 999 mls/hr IV .Q2H1M ONE Stop: 12/17/19 23:39 Last Infusion: 12/17/19 23:16 Dose: 0 mls/hr Documented by: [id number] Admin: 12/17/19 22:01 Dose: 999 mls/hr Documented by: [id number] Famotidine (Pepcid 20mg Iv Push) 20 mg in 5 mls @ 2.5 mls/min IV NOW STA Stop: 12/17/19 23:42 Last Admin: 12/17/19 23:55 Dose: 2.5 mls/min Documented by: [id number] Insulin Human Regular (Novolin R U-100 Per Unit) 10 units SC NOW STA Stop: 12/17/19 21:40 Last Admin: 12/17/19 21:52 Dose: 10 units Documented by: [id number] Cosigned by: [id number] Ketorolac Tromethamine (Toradol) 15 mg IV NOW STA Stop: 12/17/19 23:50 Last Admin: 12/17/19 23:54 Dose: 15 mg Documented by: [id number] Ondansetron HCl (Zofran) 4 mg IV NOW STA Stop: 12/17/19 20:24 Last Admin: 12/17/19 20:38 Dose: 4 mg Documented by: [id number] Potassium Chloride (Klor-Con M20) 40 meq PO NOW STA Stop: 12/17/19 23:21 Last Admin: 12/17/19 23:28 Dose: 40 meq Documented by: [id number] Medical Decision Making Differential Diagnosis Differential diagnosis: Etiologies such as biliary colic, cholecystitis, hepatitis, pancreatitis, cardiac disease, pancreatitis, gastritis, peptic ulcer disease, appendicitis, cystitis, diverticulitis, mesenteric ischemia, inflammatory bowel disease, ileus, bowel obstruction, testicular torsion, aortic pathology, shingles, as well as others were considered. Medical Records Attestation: I reviewed the patient's medical records. Home Medications Current Medication List: was personally reviewed by me Laboratory Data Attestation: I reviewed the patient's lab results. Result diagrams: 12/17/19 20:28 12/17/19 20:28 Lab Results 12/17/19 12/17/19 12/17/19 Range/Units 20:28 20:28 20:28 WBC 6.12 (4.8-10.8) K/uL RBC 5.13 (4.7-6.1) M/uL Hgb 17.3 (14.0-18.0) g/dL Hct 47.0 (42-52) % MCV 91.6 (80-100) fL MCH 33.7 (25-34) pg MCHC 36.8 H (32-36) g/dL RDW Std Deviation 40.9 (36.4-46.3) fL RDW Coeff of Gucci 12.1 (11.5-14.5) % Plt Count 188 (130-400) K/uL MPV 9.5 (7.4-10.4) fL Immature Gran % (Auto) 0.2 % Neut % (Auto) 60.6 % Lymph % (Auto) 30.1 % [place] % (Auto) 6.5 % Eos % (Auto) 2.1 % Baso % (Auto) 0.5 % Immature Gran # (Auto) 0.01 (0.00-0.02) K/uL Neut # (Auto) 3.71 (1.4-6.5) K/uL Lymph # (Auto) 1.84 (1.2-3.4) K/uL [place] # (Auto) 0.40 (0.11-0.59) K/uL Eos # (Auto) 0.13 (0-0.5) K/uL Baso # (Auto) 0.03 (0-0.2) K/uL Sodium 133 L (136-145) mmol/L Potassium 3.5 (3.5-5.1) mmol/L Chloride 99 (98-107) mmol/L Carbon Dioxide 22 (21-32) mmol/L Anion Gap 13.0 H (3-11) BUN 7 (7-18) mg/dl Creatinine 1.17 (0.6-1.4) mg/dl Est Cr Clr Drug Dosing 96.6 ml/min Est GFR ( Amer) 86.1 Est GFR (Non-Af Amer) 74.3 BUN/Creatinine Ratio 5.6 L (10-20) Glucose 478 H* (70-99) mg/dl POC Glucose (70-99) mg/dl Lactate 4.4 H* (0.4-2.0) mmol/L Calcium 8.9 (8.5-10.1) mg/dl Total Bilirubin 0.5 (0.2-1) mg/dl AST 30 (15-37) U/L ALT 42 (12-78) U/L Alkaline Phosphatase 100 (45-117) U/L Total Protein 7.9 (6.4-8.2) gm/dl Albumin 3.6 (3.4-5.0) gm/dl Globulin 4.3 H (2.5-4.0) gm/dl Albumin/Globulin Ratio 0.8 L (0.9-2) Lipase 228 (73-393) U/L Beta-Hydroxybutyric Acd 2.20 (0.2-2.81) mg/dl Urine Color Urine Appearance (Clear) Urine pH (4.5-7.5) Ur Specific [place] (1.000-1.030) Urine Protein (Negative) Urine Glucose (UA) (Negative) Urine Ketones (Negative) Urine Blood (Negative) Urine Nitrite (Negative) Urine Bilirubin (Negative) Urine Urobilinogen (Negative) Ur Leukocyte Esterase (Negative) Urine Opiates Screen (Neg) Ur Methadone, Qual (Neg) Urine Barbiturates (Neg) Ur Phencyclidine (PCP) (Neg) U Amphetamin/Meth Scrn (Neg) MDMA (Ecstasy) Screen (Neg) U Benzodiazepines Scrn (Neg) Ur Cocaine Metabolite (Neg) U Marijuana (THC) Screen (Neg) Ethyl Alcohol mg/dL (0-3) mg/dl 12/17/19 12/17/19 12/17/19 Range/Units 20:45 20:50 20:50 WBC (4.8-10.8) K/uL RBC (4.7-6.1) M/uL Hgb (14.0-18.0) g/dL Hct (42-52) % MCV (80-100) fL MCH (25-34) pg MCHC (32-36) g/dL RDW Std Deviation (36.4-46.3) fL RDW Coeff of Gucci (11.5-14.5) % Plt Count (130-400) K/uL MPV (7.4-10.4) fL Immature Gran % (Auto) % Neut % (Auto) % Lymph % (Auto) % [place] % (Auto) % Eos % (Auto) % Baso % (Auto) % Immature Gran # (Auto) (0.00-0.02) K/uL Neut # (Auto) (1.4-6.5) K/uL Lymph # (Auto) (1.2-3.4) K/uL [place] # (Auto) (0.11-0.59) K/uL Eos # (Auto) (0-0.5) K/uL Baso # (Auto) (0-0.2) K/uL Sodium (136-145) mmol/L Potassium (3.5-5.1) mmol/L Chloride (98-107) mmol/L Carbon Dioxide (21-32) mmol/L Anion Gap (3-11) BUN (7-18) mg/dl Creatinine (0.6-1.4) mg/dl Est Cr Clr Drug Dosing ml/min Est GFR ( Amer) Est GFR (Non-Af Amer) BUN/Creatinine Ratio (10-20) Glucose (70-99) mg/dl POC Glucose (70-99) mg/dl Lactate (0.4-2.0) mmol/L Calcium (8.5-10.1) mg/dl Total Bilirubin (0.2-1) mg/dl AST (15-37) U/L ALT (12-78) U/L Alkaline Phosphatase (45-117) U/L Total Protein (6.4-8.2) gm/dl Albumin (3.4-5.0) gm/dl Globulin (2.5-4.0) gm/dl Albumin/Globulin Ratio (0.9-2) Lipase (73-393) U/L Beta-Hydroxybutyric Acd (0.2-2.81) mg/dl Urine Color Yellow Urine Appearance Clear (Clear) Urine pH 5.0 (4.5-7.5) Ur Specific [place] 1.016 (1.000-1.030) Urine Protein Negative (Negative) Urine Glucose (UA) 3+ H (Negative) Urine Ketones Negative (Negative) Urine Blood Negative (Negative) Urine Nitrite Negative (Negative) Urine Bilirubin Negative (Negative) Urine Urobilinogen Negative (Negative) Ur Leukocyte Esterase Negative (Negative) Urine Opiates Screen Neg (Neg) Ur Methadone, Qual Neg (Neg) Urine Barbiturates Neg (Neg) Ur Phencyclidine (PCP) Neg (Neg) U Amphetamin/Meth Scrn Neg (Neg) MDMA (Ecstasy) Screen Neg (Neg) U Benzodiazepines Scrn Neg (Neg) Ur Cocaine Metabolite Neg (Neg) U Marijuana (THC) Screen Neg (Neg) Ethyl Alcohol mg/dL 301.5 H (0-3) mg/dl 12/17/19 12/17/19 12/18/19 Range/Units 21:55 22:22 00:02 WBC (4.8-10.8) K/uL RBC (4.7-6.1) M/uL Hgb (14.0-18.0) g/dL Hct (42-52) % MCV (80-100) fL MCH (25-34) pg MCHC (32-36) g/dL RDW Std Deviation (36.4-46.3) fL RDW Coeff of Gucci (11.5-14.5) % Plt Count (130-400) K/uL MPV (7.4-10.4) fL Immature Gran % (Auto) % Neut % (Auto) % Lymph % (Auto) % [place] % (Auto) % Eos % (Auto) % Baso % (Auto) % Immature Gran # (Auto) (0.00-0.02) K/uL Neut # (Auto) (1.4-6.5) K/uL Lymph # (Auto) (1.2-3.4) K/uL [place] # (Auto) (0.11-0.59) K/uL Eos # (Auto) (0-0.5) K/uL Baso # (Auto) (0-0.2) K/uL Sodium (136-145) mmol/L Potassium (3.5-5.1) mmol/L Chloride (98-107) mmol/L Carbon Dioxide (21-32) mmol/L Anion Gap (3-11) BUN (7-18) mg/dl Creatinine (0.6-1.4) mg/dl Est Cr Clr Drug Dosing ml/min Est GFR ( Amer) Est GFR (Non-Af Amer) BUN/Creatinine Ratio (10-20) Glucose (70-99) mg/dl POC Glucose 313 H* 174 H (70-99) mg/dl Lactate 3.5 H* (0.4-2.0) mmol/L Calcium (8.5-10.1) mg/dl Total Bilirubin (0.2-1) mg/dl AST (15-37) U/L ALT (12-78) U/L Alkaline Phosphatase (45-117) U/L Total Protein (6.4-8.2) gm/dl Albumin (3.4-5.0) gm/dl Globulin (2.5-4.0) gm/dl Albumin/Globulin Ratio (0.9-2) Lipase (73-393) U/L Beta-Hydroxybutyric Acd (0.2-2.81) mg/dl Urine Color Urine Appearance (Clear) Urine pH (4.5-7.5) Ur Specific [place] (1.000-1.030) Urine Protein (Negative) Urine Glucose (UA) (Negative) Urine Ketones (Negative) Urine Blood (Negative) Urine Nitrite (Negative) Urine Bilirubin (Negative) Urine Urobilinogen (Negative) Ur Leukocyte Esterase (Negative) Urine Opiates Screen (Neg) Ur Methadone, Qual (Neg) Urine Barbiturates (Neg) Ur Phencyclidine (PCP) (Neg) U Amphetamin/Meth Scrn (Neg) MDMA (Ecstasy) Screen (Neg) U Benzodiazepines Scrn (Neg) Ur Cocaine Metabolite (Neg) U Marijuana (THC) Screen (Neg) Ethyl Alcohol mg/dL (0-3) mg/dl Imaging Data Radiologist's Impression: CT OF THE ABDOMEN AND PELVIS WITH CONTRAST CLINICAL HISTORY: Pancreatitis. Abdominal pain. COMPARISON STUDY: CT of the abdomen and pelvis November 24, 2019. TECHNIQUE: Following IV administration of 94 mL of Optiray-320, axial images of the abdomen and pelvis were obtained from the lung bases to the proximal femurs. Images were reviewed in the axial, sagittal, and coronal planes. IV contrast was administered without complication. Automated exposure control was utilized for the study. A dose lowering technique was utilized adhering to the principles of ALARA. CT DOSE: 872.19 mGy.cm FINDINGS: Lung bases are unremarkable. No pneumatosis, free air or portal venous gas is present. Fatty infiltration of the liver is noted. There is no biliary ductal dilatation status post cholecystectomy. The spleen, adrenal glands and kidneys are unremarkable. There is no hydronephrosis or hydroureter. Pancreatic glandular atrophy is again noted. This is unchanged. There is no pancreatic ductal dilatation. Note is made of mild infiltration adjacent to the uncinate process of the pancreas. This is decreased when compared to exam of November 24, 2019. No peripancreatic fluid collection is noted. Perigastric varices are again noted. Postoperative findings within the spine are present. Bladder is mod erately distended. There is no evidence for a bowel obstruction. IMPRESSION: 1. Mild infiltration adjacent to the uncinate process of the pancreas suggestive of acute pancreatitis. No peripancreatic fluid collection. 2. No biliary ductal dilatation status post cholecystectomy. 3. Fatty infiltration of the liver. 4. Distended urinary bladder. ACT 112: Negative or not required by law. Electronically signed by: Quinton Corrales M.D. 12/17/2019 10:32 PM Dictated: 12/17/192222 Transcribed: 12/17/192222 ECG Data Attestation: I personally reviewed and interpreted this ECG as follows: Indication: + abdominal pain Rate (beats per minute): 119 Rhythm: + sinus tachycardia ECG Intervals/blocks: + Normal QT ECG Dairy: + Normal ECG ST segments: + Normal ST segments ECG Findings: + Q waves (Anterior); no PACs and no PVCs Blood Pressure Blood Pressure Findings: Elevated blood pressure Blood Pressure Disposition: further management by hospitalist MDM Narrative An order for cardiac monitoring was placed and the patient is found to be in a sinus tachycardia at 120 bpm. This patient was evaluated and appeared to be in significant discomfort. IV access was obtained and laboratory work was drawn. Patient was hydrated with normal saline solution. Patient was given IV Dilaudid and Zofran. He has noted to be intoxicated. CT imaging of the abdomen pelvis was performed and is read as above with mild inflammatory change around the pancreas. Patient's blood alcohol level is 303 with a glucose of over 478. Patient's lactic acid is 4. Patient was given 10 units of subcutaneous regular insulin. Case was discussed with Dr. Ruiz of the hospitalist service who will evaluate the patient for further management. Impression & Plan Acute alcoholic pancreatitis, Acute hyperglycemia, Acidosis, lactic Discharge Plan Visit Data Chief Complaint: Chest Pain Stated Complaint: SOB, CHEST/SHOULDER PAIN ED Provider: Radha Jeong Discharge Problem: Acute alcoholic pancreatitis, Acute hyperglycemia, Acidosis, lactic Forms Stand Alone Forms: [employer] Prescriptions Prescriptions: No Action Unobtainable RF: 0 Discharge Problem: Acute alcoholic pancreatitis Qualifiers: Acute pancreatitis complication: no infection or necrosis Qualified Code(s): K85.20 - Alcohol induced acute pancreatitis without necrosis or infection
[2019-12-18 00:43] LABS: BUN Creatinine Ratio 6.2 (10-20); Calcium 7.9 mg/dl (8.5-10.1); Creatinine Clr Calc Pharmacy 124.2 ml/min; Est GFR (African American) 116.7; Est GFR (Non-African American) 100.7; Magnesium 2.2 mg/dl (1.8-2.4); Potassium 3.4 mmol/L (3.5-5.1)
[2019-12-18] MEDS ORDERED: GLUCOSE 40% GEL 15 GM TUBE PO PRN (01:14)
[2019-12-18] MEDS ORDERED: CARBOHYDRATES FOR HYPOGLYCEMIA PO PRN (01:14)
[2019-12-18] MEDS ORDERED: GABAPENTIN 1200MG ALCOHOL WITHDRAWAL LOAD PO STA (01:14)
[2019-12-18] MEDS ORDERED: ACETAMINOPHEN 325 MG TAB PO PRN (01:14)
[2019-12-18] MEDS ORDERED: LORazepam 1 MG/2 ML VIAL IV PRN (01:14)
[2019-12-18] MEDS ORDERED: DEXTROSE 50% 50 ML SYRINGE IV PRN (01:14)
[2019-12-18] MEDS ORDERED: GLUCOSE 10 TABS/TUBE PO PRN (01:14)
[2019-12-18] MEDS ORDERED: GLUCAGON FOR INJ 1 MG VIAL SQ PRN (01:14)
[2019-12-18] MEDS ORDERED: LACTATED RINGER'S 1,000 ML IV SCH (01:14)
[2019-12-18] MEDS ORDERED: ATIVAN IV ALCOHOL WITHDRAWL IV PRN (01:14)
[2019-12-18] MEDS ORDERED: LORazepam 3 MG/6 ML VIAL IV PRN (01:14)
[2019-12-18] MEDS ORDERED: LORazepam 2 MG/4 ML VIAL IV PRN (01:14)
[2019-12-18] MEDS: INSULIN ASPART 100 UNITS/ML 3 ML PEN SC SCH ×5 (01:38→20:50)
[2019-12-18] MEDS: FOLIC ACID 1 MG TAB PO SCH ×2 (01:54→08:00)
[2019-12-18] MEDS: THIAMINE HCL 100 MG TAB PO SCH ×2 (01:55→08:00)
[2019-12-18] MEDS: PROMETHAZINE HCL 12.5 MG in SODIUM CHLORIDE 0.9% 50 ML IV PRN (02:29)
[2019-12-18] MEDS: OXYCODONE HCL IR 5 MG TAB (IMMEDIATE RELEASE) PO PRN ×5 (04:05→16:57)
[2019-12-18 04:41] LABS: Basophils # (auto) 0.02 K/uL (0-0.2); Basophils % (auto) 0.5 %; Eosinophils # (auto) 0.11 K/uL (0-0.5); Eosinophils % (auto) 2.5 %; Hematocrit (blood only) 43.7 % (42-52); Hemoglobin 15.3 g/dL (14.0-18.0); Lymphocytes # (auto) 1.36 K/uL (1.2-3.4); Lymphocytes % (auto) 31.4 %; Mean Corpuscular Hemoglobin 32.8 pg (25-34); Mean Corpuscular Volume 93.6 fL (80-100); Mean Platelet Volume 9.3 fL (7.4-10.4); Monocytes # (auto) 0.57 K/uL (0.11-0.59); Monocytes % (auto) 13.2 %; Neutrophils # (auto) 2.27 K/uL (1.4-6.5); Neutrophils % (auto) 52.4 %; Platelet Count 148 K/uL (130-400); RDW Coefficient of Variation 12.4 % (11.5-14.5); RDW Standard Deviation 42.2 fL (36.4-46.3); Red Blood Count 4.67 M/uL (4.7-6.1); White Blood Count 4.33 K/uL (4.8-10.8)
[2019-12-18 04:52] LABS: INR 1.1 (0.9-1.1); Prothrombin Time 11.3 Seconds (9.0-12.0)
[2019-12-18 05:01] LABS: BUN Creatinine Ratio 5.8 (10-20); Calcium 7.8 mg/dl (8.5-10.1); Creatinine Clr Calc Pharmacy 158.8 ml/min; Est GFR (African American) 127.5; Potassium 3.6 mmol/L (3.5-5.1)
[2019-12-18] MEDS: GABAPENTIN 600 MG TAB PO SCH ×3 (05:27→19:41)
[2019-12-18] MEDS ORDERED: LACTATED RINGER'S 1,000 ML IV ONE (05:29)
[2019-12-18] MEDS: LACTATED RINGER'S 1,000 ML IV SCH ×5 (07:58→23:55)
[2019-12-18] MEDS: MULTIVITAMIN TAB PO SCH (08:00)
[2019-12-18] MEDS: PANTOprazole 40 MG TAB PO SCH (08:00)
[2019-12-18] MEDS: INSULIN GLARGINE SOLOSTAR 100 UNITS/ML 3 ML PEN SC SCH (08:06)
[2019-12-18] MEDS ORDERED: ENOXAPARIN INJ 40 MG/0.4 ML SYR SQ SCH (09:00)
[2019-12-18] MEDS: KETOROLAC TROMETHAMINE 15 MG/ML VIAL IV PRN ×2 (10:05→16:21)
--- NOTE | 2019-12-18 12:49 | Hospitalist Progress Note ---
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 -chronic ETOH abuse , admission ETOH level < 300 ETOH withdrawal protocol with Gabapentin monitor in medical tele Acute alcoholic pancreatitis admitted with epigastric pain CT abdomen/pelvis : suggestive of acute pancreatitis due to heavy alcohol abuse bowel rest IV fluid counselling for strict ETOH abstinence elevated Lactic acid level : possible due to chronic ETOH abuse no evidence of hemodynamic instability or infection normal Hco3 level -no evidence of acidosis cont IVF repeat Lactic acid level in am type 2 DM : poorly controlled last HbA1c > 9 Basal insulin, ISS BG goal [id number], carb count coverage need strict abstinence from ETOH in order to have better glycemic control Hx of drug abuse /narcotic pain med abuse /dependency : Judicious narcotic use given history drug abuse as per records Admitting physician updated told patient : no IV narcotics pain medications with be prescribed for abdominal pain pt is ordered PRN IV toradol and PRN PO oxycodone will cont to follow the same regimen Full code Text document was generated using [employer] voice recognition software. It may contain grammatical or spelling errors. Kindly contact undersigned for clarification of any documentation item in question. Admission and Anticipated Discharge Date Admission Date: December 17, 2019 Subjective continues to complain of abdominal pain has persisted nausea no vomiting Physical Exam Constitutional: WD/WN, vitals as above Eyes: PERRL, conjunctivae normal, anicteric sclerae ENMT: external ear and nose normal, oropharynx normal Neck: trachea midline, no thyromegaly Respiratory: normal respiratory effort, lungs clear to auscultation Cardiovascular: RRR, no murmur, no edema Gastrointestinal (Abdomen): Percussion/Palpation: + abdomen tender and abdomen soft Musculoskeletal: no cyanosis or clubbing, extremities motor strength 5/5 Skin: no rashes, warm and dry Neurologic: PERRL, EOMI, accommodation nl, no face palsy, no dysarthria Psychiatric: A+Ox3, euthymic affect Results & Data Results & Data ([facility]) Vital Signs (Past 12 Hours) Vital Signs Temp Pulse Pulse Resp BP BP Pulse Ox 12/18/19 11:09 36.4 C 70 18 107/65 96 12/18/19 08:00 66 12/18/19 07:41 36.3 C L 78 18 100/63 96 12/18/19 03:19 93 H 12/18/19 01:20 36.9 C 104 H 16 125/77 95 12/18/19 01:02 118 H 22 113/91 93
[2019-12-18] MEDS ORDERED: HYDROmorphone INJ 2 MG/ML SYR/VIAL IV STA (19:20)
[2019-12-18] MEDS ORDERED: INSULIN GLARGINE SOLOSTAR 100 UNITS/ML 3 ML PEN SC SCH (21:00)
[2019-12-18] MEDS: HYDROmorphone INJ 0.5 MG/0.5 ML SYR IV PRN (22:41)
[2019-12-19] MEDS: HYDROmorphone INJ 0.5 MG/0.5 ML SYR IV PRN ×8 (02:00→23:51)
[2019-12-19] MEDS: GABAPENTIN 600 MG TAB PO SCH ×3 (03:48→23:52)
[2019-12-19] MEDS: LACTATED RINGER'S 1,000 ML IV SCH ×2 (05:19→12:30)
--- NOTE | 2019-12-19 05:50 | Electrocardiogram Report ---
Test Reason : Blood Pressure : / mmHG Vent. Rate : 119 BPM Atrial Rate : 119 BPM P-R Int : 166 ms QRS Dur : 060 ms QT Int : 308 ms P-R-T Axes : 059 059 031 degrees QTc Int : 433 ms Sinus tachycardia Cannot rule out Anteroseptal infarct Abnormal ECG When compared with ECG of 24-NOV-2019 20:02, No significant change Confirmed by Antoni Meek ([id number]) on 12/19/2019 5:50:22 AM Referred By: REFERRED SELF Confirmed By:Antoni Meek
[2019-12-19] MEDS: PROMETHAZINE HCL 12.5 MG in SODIUM CHLORIDE 0.9% 50 ML IV PRN ×3 (05:53→17:32)
[2019-12-19] MEDS: MULTIVITAMIN TAB PO SCH (08:28)
[2019-12-19] MEDS: FOLIC ACID 1 MG TAB PO SCH (08:28)
[2019-12-19] MEDS: THIAMINE HCL 100 MG TAB PO SCH (08:28)
[2019-12-19] MEDS: PANTOprazole 40 MG TAB PO SCH (08:29)
[2019-12-19] MEDS: INSULIN GLARGINE SOLOSTAR 100 UNITS/ML 3 ML PEN SC SCH (08:29)
[2019-12-19] MEDS: INSULIN ASPART 100 UNITS/ML 3 ML PEN SC SCH ×4 (08:29→21:31)
--- NOTE | 2019-12-19 17:56 | Hospitalist Progress Note ---
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 /ETOH withdrawal -chronic ETOH abuse , admission ETOH level < 300 ETOH withdrawal protocol with Gabapentin no evidence of ETOH withdrawl vitals remains stable Acute alcoholic pancreatitis admitted with epigastric pain CT abdomen/pelvis : suggestive of acute pancreatitis due to heavy alcohol abuse pt reports of improvement of nausea tolerating clears diet advanced to low fat counselling for strict ETOH abstinence elevated Lactic acid level : possible due to chronic ETOH abuse lactic acid level normalized with IV fluid type 2 DM : poorly controlled last HbA1c > 9 Basal insulin, ISS BG goal [id number], carb count coverage need strict abstinence from ETOH in order to have better glycemic control Hx of drug abuse /narcotic pain med abuse /dependency : Full code DISPOSITION : plan d/c home in next 1-2 days if GI symptoms resolve Text document was generated using [employer] voice recognition software. It may contain grammatical or spelling errors. Kindly contact undersigned for clarification of any documentation item in question. Admission and Anticipated Discharge Date Admission Date: December 17, 2019 Subjective continues to complain of abdominal pain requesting frequent IV dilaudid no nausea or vomiting tolerating clears asks to advance diet to solid Review of Systems Review of Systems: As per HPI, all 10 systems reviewed, all other ROS negative Physical Exam Constitutional: WD/WN, vitals as above Eyes: PERRL, conjunctivae normal, anicteric sclerae ENMT: external ear and nose normal, oropharynx normal Neck: trachea midline, no thyromegaly Respiratory: normal respiratory effort, lungs clear to auscultation Cardiovascular: RRR, no murmur, no edema Gastrointestinal (Abdomen): Percussion/Palpation: abdomen soft; abdomen nontender Musculoskeletal: no cyanosis or clubbing, extremities motor strength 5/5 Skin: no rashes, warm and dry Neurologic: PERRL, EOMI, accommodation nl, no face palsy, no dysarthria Psychiatric: A+Ox3, euthymic affect Results & Data Results & Data ([facility]) Vital Signs (Past 12 Hours) Vital Signs Temp Pulse Pulse Resp BP Pulse Ox 12/19/19 15:16 36.7 C 64 20 136/86 97 12/19/19 14:20 99 H 12/19/19 10:59 36.7 C 82 20 127/81 95 12/19/19 07:30 36.8 C 90 20 116/79 95 12/19/19 07:16 98 H
[2019-12-20] MEDS: HYDROmorphone INJ 0.5 MG/0.5 ML SYR IV PRN ×5 (03:03→12:37)
[2019-12-20] MEDS: FOLIC ACID 1 MG TAB PO SCH (08:18)
[2019-12-20] MEDS: THIAMINE HCL 100 MG TAB PO SCH (08:18)
[2019-12-20] MEDS: INSULIN GLARGINE SOLOSTAR 100 UNITS/ML 3 ML PEN SC SCH (08:18)
[2019-12-20] MEDS: PANTOprazole 40 MG TAB PO SCH (08:18)
[2019-12-20] MEDS: MULTIVITAMIN TAB PO SCH (08:18)
[2019-12-20] MEDS: INSULIN ASPART 100 UNITS/ML 3 ML PEN SC SCH ×2 (08:19→12:38)
[2019-12-20 11:15] VITALS: BP 151/89; TEMP 97.7; O2SAT 99
[2019-12-20] MEDS: PROMETHAZINE HCL 12.5 MG in SODIUM CHLORIDE 0.9% 50 ML IV PRN (12:37)
[2019-12-20] MEDS: GABAPENTIN 600 MG TAB PO SCH (12:37)
[2019-12-20 15:10] VITALS: PULSE 86
--- NOTE | 2019-12-20 15:13 | Discharge Summary ---
Date of Service December 20, 2019 Admission HPI Per Admitting Provider History is obtained from the patient and records. Medical history is significant for ADD/mood disorder as per records, DM2 on oral meds, GERD, recurrent pancreatitis, alcohol abuse as per records. History of PE as per records, history of chronic pain, hx narcotic abuse as per records/terminated medication agreement Recent confinement 3 weeks ago for recurrent alcoholic pancreatitis. Patient left hospital AGAINST MEDICAL ADVICE due to provider refusal to prescribe patient's preferred Dilaudid for abdominal pain. Patient went back to alcohol consumption shortly after discharge. Few days history of achy epigastric pain going to shoulders and chest with nausea and bilious emesis. Good BM. No fever, no chills. Poor appetite. Admits to drinking 6 beers today. At the ER, IV insulin given for blood sugars in the 400s. MEDICAL HISTORY: As above. SURGERIES: Appendectomy, cholecystectomy, vascular device placement. Back surgery FAMILY HISTORY: mood disorder. Alcoholism, heart disease. 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 CHRONIC ALCOHOL ABUSE /ALCOHOLIC PANCREATITIS Discharge Exam Constitutional WD/WN, vitals as above Eyes PERRL, conjunctivae normal, anicteric sclerae ENMT external ear and nose normal, oropharynx normal Neck trachea midline, no thyromegaly Respiratory normal respiratory effort, lungs clear to auscultation Cardiovascular RRR, no murmur, no edema Gastrointestinal (Abdomen) Percussion/Palpation: abdomen soft; abdomen nontender Musculoskeletal no cyanosis or clubbing, extremities motor strength 5/5 Skin no rashes, warm and dry Neurologic PERRL, EOMI, accommodation nl, no face palsy, no dysarthria Psychiatric A+Ox3, euthymic affect Discharge Data Allergies Allergy/AdvReac Type Severity Reaction Status Date / Time No Known Allergies Allergy Verified 11/24/19 20:10 Consultations 12/17/19 22:57 ED Decision to Admit Stat 12/18/19 01:14 Consult Case Management - Discharge Planning Routine Ordered Studies 12/17/19 20:23 CT abd pelvis IV con only Stat Hospital Course (1) Alcohol withdrawal: hx of 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 alcohol abuse /ETOH withdrawal -chronic ETOH abuse , admission ETOH level < 300 ETOH withdrawal protocol with Gabapentin no evidence of ETOH withdrawl stable to be discharged home today pt is counselled repeatedly for strict alcohol abstinence Acute alcoholic pancreatitis due to heavy alcohol abuse resolved tolerating solid diet no nausea or vomiting admitted with epigastric pain CT abdomen/pelvis : suggestive of acute pancreatitis counselling for strict ETOH abstinence elevated Lactic acid level : resolved possible due to chronic ETOH abuse lactic acid level normalized with IV fluid type 2 DM : poorly controlled last HbA1c > 9 Basal insulin, ISS BG goal [id number], carb count coverage need strict abstinence from ETOH in order to have better glycemic control resume Metfomin /basal Lantus on discharge Full code DISPOSITION : Discharge home today Total Time Total Time Spent Total Time Spent (In Minutes): 35 mins Total Time Includes: Examination of the Patient, Discharge Planning and Medication Reconciliation Discharge Plan Discharge Items Patient Disposition: Home - Self-Care Reason For Visit: ETOH WITHDRAWAL Discharge Diagnosis: CHRONIC ALCOHOL ABUSE , ALCOHOLIC PANCREATITIS Activity: Resume your previous activity Non-emergency contact: Primary Care Provider Call non-emergency contact if: you have any medication questions Follow-up/Referrals: Dhiraj Myers, [Primary Care Provider] - 12/27/19 11:40 am (12/27/2019 11:40 AM Provider Ritika Kan MD Department General Internal Medicine [facility] ) Diet: Low Fat Addtl Attending Provider Instructions: it is very important for you to quit Drinking Alcohol you are at high risk for liver failure , heart failure /heart attack , kidney failure /early onset of dementia -of continue to drink Alcohol heavily please seek professional help -counselling , rehab Pending Studies at Discharge: No Stand-Alone Forms: My [facility] [employer], Smoking Cessation Medications and DC Order Prescriptions: New multivitamin [Daily-Chriss] Tablet 1 tab PO QAM 30 Days Qty: 30 RF: 0 thiamine HCl (vitamin B1) [Vitamin B-1] 100 mg Tablet 100 mg PO QAM 30 Days Qty: 30 RF: 0 folic acid 1 mg Tablet 1 mg PO QAM 30 Days Qty: 30 RF: 0 oxycodone 5 mg Tablet 5 mg PO Q8 PRN (Reason: pain) Qty: 10 RF: 0 Continued famotidine 20 mg tablet 20 mg PO DAILY RF: 0 paroxetine HCl 20 mg tablet 20 mg PO DAILY RF: 0 pantoprazole 40 mg tablet,delayed release (DR/EC) 40 mg PO DAILY RF: 0 metformin 500 mg tablet extended release 24 hr 1,000 mg PO DAILY RF: 0 Lantus Solostar U-100 Insulin 100 unit/mL (3 mL) insulin pen 10 unit SUBCUT DAILY RF: 0 Discharge Orders: Discharge Order (Routine); Ordered 12/20/19 Ordered By: Claudia Bowden/Other Patient Handouts: Alcoholism Resources, Alcoholism Get Help, Addiction Alcohol Admission Data Admit Date/Time: 12/17/19 23:43 Attending Provider: Claudia Chapa Admit Provider: Bishop Enamorado Primary Care Provider: Dhiraj Myers Other Providers: Bishop Enamorado
[2019-12-21] MEDS ORDERED: GABAPENTIN 600 MG TAB PO SCH (12:00)
== END 2019-12-20 15:40 | disposition home or self-care (01) | DRG 439 ==
LOC: ED 20:03 → 2N 23:43

== ENCOUNTER 2019-12-22 22:02 | Inpatient (IN) ==
[2019-12-22] MEDS ORDERED: SODIUM CHLORIDE 0.9% 500 ML IV SCH (22:15)
[2019-12-22] MEDS ORDERED: LORazepam 1 MG/2 ML VIAL IV STA (22:15)
[2019-12-22] MEDS ORDERED: PROMETHAZINE HCL 12.5 MG in SODIUM CHLORIDE 0.9% 50 ML IV STA (22:15)
[2019-12-22] MEDS ORDERED: MULTI-VITAMIN INFUSION 10 ML, THIAMINE HCL 100 MG, FOLIC ACID 1 MG in SODIUM CHLORIDE 0... IV ONE (22:15)
[2019-12-22] MEDS ORDERED: MoRPHine SULFATE 4 MG/ML 1 ML CARP\\VIAL IV STA (22:15)
[2019-12-22] MEDS ORDERED: FAMOTIDINE 20MG/5ML IV PUSH IV STA (22:18)
--- NOTE | 2019-12-22 22:20 | Emergency Department Note ---
Impression & Plan Hypotension, Alcohol abuse, Acute hyperglycemia, Vomiting, Epigastric abdominal pain ED Provider Note NAME: RIKY MELTON AGE: 44 SEX: M : 1975 ARRIVES VIA: Ambulance INFORMANT: [Patient][ems] ED PROVIDER(S): [Kareem Mchugh MD] CHIEF COMPLAINT: Abdominal pain HISTORY OF PRESENT ILLNESS: The patient is a 44-year-old male with a history of pancreatitis and alcohol abuse. He was in our hospital and discharged just 2 days ago. The patient admits to drinking alcohol since being discharged. He now has severe constant epigastric abdominal pain that is burning in nature and radiates to the chest. Pain became pretty severe this evening. He feels short of breath with the pain. There has been no cough or fever. No diarrhea. He has not vomited. The patient presents by EMS. He received fentanyl and Zofran in route for his symptoms. He still has pain. The patient apparently was discharged with 10 oxycodone a few days ago. Per report, the bottle was empty in his room. He lives with his mother who found him sort of slumped over and she was concerned that he may have overdosed on the oxycodone plus alcohol. The patient denies any suicide attempt. He admits to the pain and he admits to drinking beer, no hard liquor. The patient is convinced that he has something wrong with his stomach. He thinks he needs an endoscopy. He admits that he knows he did wrong by drinking alcohol again. Alcohol does flareup his pancreatitis. REVIEW OF SYSTEMS: See HPI for pertinent positives and negatives. A total of ten systems were reviewed and were otherwise negative. PMHx/PSHx: See Below SOCIAL HISTORY: See Below. PHYSICAL EXAM: GENERAL: Patient is in moderate distress from pain, anxious. HEENT: No acute trauma, normocephalic atraumatic, mucous membranes moist, no nasal congestion, no scleral icterus. NECK: No stridor, no adenopathy, no meningismus, trachea is midline. LUNGS: Clear to auscultation bilaterally, no wheeze, no rhonchi, breath sounds equal. HEART: Without murmurs gallops or rubs, mildly tachycardic with a regular rhythm. ABDOMEN: Soft, mildly tender in the epigastrium, bowel sounds positive, no hernias, no peritonitis. EXTREMITIES: No cyanosis or edema, full range of motion of all the joints without pain or difficulty, no signs for acute trauma. NEUROLOGIC: Oriented x 3, no acute motor or sensory deficits, no focal weakness. Very subtle speech slur. SKIN: No rash, no jaundice, no diaphoresis. DIFFERENTIAL DIAGNOSIS: Diverticulitis, IA, gastritis, gastric ulcer, UTI, obstruction, alcohol overdose, mesenteric ischemia, aortic pathology, inflammatory bowel disease, renal colic, PUD, pancreatitis, biliary pathology, hernia, volvulus, constipation, as well as other pathologies. EMERGENCY DEPARTMENT COURSE/PROCEDURES: ECG: Indication was epigastric abdominal pain. EKG shows a normal sinus rhythm with a rate of 100. There is no ST elevation, no PVCs. The QTc is 454. Continuous Cardiac Monitoring: An order was placed for continuous cardiac monitoring. The monitor shows a rate of 111 with sinus tachycardia. Critical Care Note: I have personally spent greater than 36 minutes of critical care time in the direct management of this patient. This includes bedside care, interpretation of diagnostic studies, and testing, discussion with consultants, patient, and family members, and other required patient management activities. This 36 minutes is in excess of all separately billable procedures. MEDICAL DECISION MAKING: There is no leukocytosis or concerning anemia. No kidney failure, the renal panel did suggest an acidosis. Glucose was high at 409. No concerning liver enzyme elevation. No evidence for pancreatitis by our testing. EKG showed a sinus rhythm, no acute ischemia. Cardiac enzyme testing x1 is not consistent with acute cardiac injury. Chest film does not show free air, mediastinal widening or pneumonia. Alcohol level was elevated at 254, consistent with his alcohol abuse history. The patient presents vomiting, he was tachycardic, he appeared intoxicated. Security was placed at his bedside. He was aggressively managed. Patient received IV Pepcid for stomach upset. He was given IV insulin because of the high blood sugar. He received IV Ativan to prevent alcohol withdrawal and to help with sedation. He was given IV morphine as needed for pain control. He was given IV Phenergan for nausea. He received IV saline for hydration, he was given IV saline with multivitamins, thiamine and folate. The patient presents with vomiting, epigastric abdominal pain. He has a history of alcohol abuse and pancreatitis. The patient is tachycardic, at times hypotensive, he clearly is in no condition to be discharged home. I am concerned about the return of pancreatitis. Certainly gastritis is also a consideration and an endoscopy may be warranted at some point to help diagnose his discomfort. I do not think the patient can be discharged home. He requires a readmit to the hospital for care and work-up. 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 The on-call hospitalist was consulted. Past Med/Surg History Medical History Abdominal pain Acute hyperglycemia (Acute) Alcohol abuse (Chronic Unknown) Alcohol abuse (Acute) Renae's esophagus (Chronic Unknown) "per EGD 11/23/09 " On 05/31/11 09:06 Martinez Jose wrote "per EGD 11/23/09 " Chest pain Depression (Chronic) Depression (Chronic) DM type 2 (diabetes mellitus, type 2) (Chronic) Encounter for alcohol abuse counseling and surveillance (Acute) Encounter for pre-operative examination Encounter for tobacco use cessation counseling (Acute) H/O acute pancreatitis (Chronic) "recurrent" History of substance abuse (Chronic) Hyperglycemia (Acute) Intentional drug overdose (Resolved) Lumbar degenerative disc disease (Chronic) Mood disorder (Chronic) Mood disorder (Chronic) Neuropathy (Acute) Pancreatitis (Acute) Panic disorder (Chronic) Pulmonary embolism (Resolved) Suicidal ideation (Chronic) Suicidal ideation (Resolved) Suicide attempt (Resolved) Surgical History H/O esophagogastroduodenoscopy (Chronic) "EGD 11/23/2009- mild gastritis, suspicious for gastroparesis, Z-line irregular EUS 02/04/2010- mild chronic pancreatitis, pronounced cholesterolosis of gallbladder, no biliary dilation or stones, probable gastroparesis EGD 10/31/2014- gastritis" S/P lumbar fusion (Resolved) L4-S1 2015 Family History Father Alcohol abuse Social History Preferred Language: Austrian Communication Ability: Effective Instrumentation Manager Required: No Beliefs That Will Affect Care: None Current Living Situation: Parent Current Living Situation Comment: with mother Feels Safe at Home: Yes Smoking Status: Never smoker Tobacco Type: smokeless tobacco ; Second Hand Exposure: Yes ; Hx Alcohol Use: Yes Alcohol type: beer Hx Substance Use: No Allergies Allergies Allergy/AdvReac Type Severity Reaction Status Date / Time No Known Allergies Allergy Verified 12/22/19 22:40 Home Meds Home Medications Medication Instructions Recorded Confirmed famotidine 20 mg PO DAILY 12/20/19 12/22/19 pantoprazole 40 mg PO DAILY 12/20/19 12/22/19 paroxetine HCl 20 mg PO DAILY 12/20/19 12/22/19 insulin glargine [Lantus Solostar 10 unit SUBCUT DAILY 12/23/19 12/23/19 U-100 Insulin] metformin 1,000 mg PO DAILY 12/23/19 12/23/19 Previous Rx's Medication Instructions Recorded folic acid 1 mg PO QAM 30 Days #30 tab 12/20/19 oxycodone 5 mg PO Q8 PRN #10 tab 12/20/19 thiamine HCl (vitamin B1) [Vitamin 100 mg PO QAM 30 Days #30 tab 12/20/19 B-1] Results & Data (ED) Vital Signs Vital Signs - 24 hr 12/22/19 22:12 12/22/19 22:21 12/22/19 23:37 Temperature 36.9 C Temperature Source Oral Pulse Rate 108 H Pulse Rate [Bilateral Apical] 111 H Respiratory Rate 18 20 Blood Pressure 108/64 Blood Pressure [Right Arm] 87/54 L Blood Pressure Mean 78 Blood Pressure Mean [Right Arm] 65 Pulse Oximetry 91 91 93 Oxygen Delivery Method Room Air Room Air Room Air Sepsis Recent Fever Within 48 Hours No Sepsis New/Unexplained Change in Mental Status No Sepsis Action Taken by Nursing No Action Required Home Medications Current Medication List: was personally reviewed by me Laboratory Data Attestation: I reviewed the patient's lab results. Result diagrams: 12/22/19 22:15 12/22/19 22:15 Lab Results 12/22/19 12/22/19 12/22/19 Range/Units 22:15 22:15 22:38 WBC 5.68 (4.8-10.8) K/uL RBC 4.91 (4.7-6.1) M/uL Hgb 16.4 (14.0-18.0) g/dL Hct 45.4 (42-52) % MCV 92.5 (80-100) fL MCH 33.4 (25-34) pg MCHC 36.1 H (32-36) g/dL RDW Std Deviation 40.8 (36.4-46.3) fL RDW Coeff of [employer]cci 12.1 (11.5-14.5) % Plt Count 171 (130-400) K/uL MPV 10.1 (7.4-10.4) fL Immature Gran % (Auto) 0.0 % Neut % (Auto) 57.2 % Lymph % (Auto) 31.3 % Schley % (Auto) 6.9 % Eos % (Auto) 4.2 % Baso % (Auto) 0.4 % Immature Gran # (Auto) 0.00 (0.00-0.02) K/uL Neut # (Auto) 3.25 (1.4-6.5) K/uL Lymph # (Auto) 1.78 (1.2-3.4) K/uL Schley # (Auto) 0.39 (0.11-0.59) K/uL Eos # (Auto) 0.24 (0-0.5) K/uL Baso # (Auto) 0.02 (0-0.2) K/uL Sodium 135 L (136-145) mmol/L Potassium 3.6 (3.5-5.1) mmol/L Chloride 102 (98-107) mmol/L Carbon Dioxide 17 L (21-32) mmol/L Anion Gap 16.0 H (3-11) BUN 6 L (7-18) mg/dl Creatinine 1.13 (0.6-1.4) mg/dl Est Cr Clr Drug Dosing 102.0 ml/min Est GFR ( Amer) 89.8 Est GFR (Non-Af Amer) 77.5 BUN/Creatinine Ratio 5.2 L (10-20) Glucose 409 H* (70-99) mg/dl Calcium 9.5 (8.5-10.1) mg/dl Magnesium 2.2 (1.8-2.4) mg/dl Total Bilirubin 0.6 (0.2-1) mg/dl AST 27 (15-37) U/L ALT 43 (12-78) U/L Alkaline Phosphatase 98 (45-117) U/L Troponin I < 0.015 (0-0.045) ng/ml Total Protein 7.9 (6.4-8.2) gm/dl Albumin 3.4 (3.4-5.0) gm/dl Globulin 4.5 H (2.5-4.0) gm/dl Albumin/Globulin Ratio 0.8 L (0.9-2) Lipase 52 L (73-393) U/L Beta-Hydroxybutyric Acd 2.20 (0.2-2.81) mg/dl Ethyl Alcohol mg/dL 254.2 H (0-3) mg/dl Administered Medications Morphine Sulfate (Morphine Sulfate) 4 mg IV Q20M PRN PRN Reason: Pain Stop: 01/05/20 23:45 Last Admin: 12/22/19 23:50 Dose: 4 mg Documented by: [id number] Discontinued Medications Famotidine (Pepcid 20mg Iv Push) 20 mg IV ONE STA Stop: 12/22/19 22:19 Last Admin: 12/22/19 22:44 Dose: 20 mg Documented by: [id number] Sodium Chloride (Nss) 500 mls @ 999 mls/hr IV .Q31M RAMOS Stop: 12/22/19 22:45 Last Infusion: 12/22/19 23:31 Dose: 0 mls/hr Documented by: [id number] Admin: 12/22/19 22:45 Dose: 999 mls/hr Documented by: [id number] Promethazine HCl 12.5 mg/ (Sodium Chloride) 50.5 mls @ 202 mls/hr IV NOW STA Stop: 12/22/19 22:29 Last Admin: 12/22/19 22:45 Dose: Not Given Documented by: [id number] Lorazepam (Ativan) 1 mg in 2 mls @ 2 mls/min IV NOW STA Stop: 12/22/19 22:16 Last Admin: 12/22/19 22:44 Dose: 2 mls/min Documented by: [id number] Multivitamins 10 ml/ Thiamine HCl 100 mg/ Folic Acid 1 mg/Sodium Chloride 1,011.2 mls @ 1,011.2 mls/hr IV .Q1H ONE Stop: 12/22/19 23:14 Last Admin: 12/22/19 23:39 Dose: 1,011.2 mls/hr Documented by: [id number] Insulin Human Regular (Novolin R U-100 Per Unit) 10 units IV NOW STA Stop: 12/22/19 23:06 Last Admin: 12/22/19 23:19 Dose: 10 units Documented by: [id number] Cosigned by: [id number] Morphine Sulfate (Morphine Sulfate) 4 mg IV NOW STA Stop: 12/22/19 22:16 Last Admin: 12/22/19 22:44 Dose: 4 mg Documented by: [id number] Promethazine HCl (Phenergan) Confirm Administered Dose 12.5 mg IV .STK-MED ONE Stop: 12/22/19 22:33 Last Admin: 12/22/19 22:44 Dose: 12.5 mg Documented by: [id number] Imaging Data Radiologist's Impression: XR chest 1V portable HISTORY: 44 years-old Male epig pain acute epigastric abdominal pain COMPARISON: CT abdomen and pelvis 12/17/2019, chest radiograph 09/29/2019 TECHNIQUE: Portable AP view of the chest FINDINGS: Cardiac silhouette is upper limits of normal in size. No pneumothorax, pleural effusion, airspace consolidation or overt pulmonary edema. Bones of the chest appear grossly intact. IMPRESSION: No acute process. Blood Pressure Blood Pressure Findings: Low blood pressure Blood Pressure Disposition: further management by hospitalist Discharge Plan Visit Data Chief Complaint: Abdominal Pain Stated Complaint: AB PAIN ED Provider: Kareem Mchugh Discharge Problem: Hypotension, Alcohol abuse, Acute hyperglycemia, Vomiting, Epigastric abdominal pain Patient Disposition: Being Evaluated by Hospitalist Condition: Fair Forms Stand Alone Forms: [facility] [employer] Prescriptions Prescriptions: No Action thiamine HCl (vitamin B1) [Vitamin B-1] 100 mg Tablet 100 mg PO QAM 30 Days Qty: 30 RF: 0 folic acid 1 mg Tablet 1 mg PO QAM 30 Days Qty: 30 RF: 0 oxycodone 5 mg Tablet 5 mg PO Q8 PRN (Reason: pain) Qty: 10 RF: 0 famotidine 20 mg tablet 20 mg PO DAILY RF: 0 paroxetine HCl 20 mg tablet 20 mg PO DAILY RF: 0 pantoprazole 40 mg tablet,delayed release (DR/EC) 40 mg PO DAILY RF: 0 metformin 500 mg tablet extended release 24 hr 1,000 mg PO DAILY RF: 0 Lantus Solostar U-100 Insulin 100 unit/mL (3 mL) insulin pen 10 unit SUBCUT DAILY RF: 0 Referrals Referrals: Dhiraj Myers DO [Primary Care Provider] - Discharge Problem: Hypotension Qualifiers: Hypotension type: unspecified hypotension type Qualified Code(s): I95.9 - Hypotension, unspecified Vomiting Qualifiers: Vomiting type: unspecified Vomiting Intractability: non-intractable Nausea presence: with nausea Qualified Code(s): R11.2 - Nausea with vomiting, unspecified
[2019-12-22 22:32] LABS: Basophils # (auto) 0.02 K/uL (0-0.2); Basophils % (auto) 0.4 %; Eosinophils # (auto) 0.24 K/uL (0-0.5); Eosinophils % (auto) 4.2 %; Hematocrit (blood only) 45.4 % (42-52); Hemoglobin 16.4 g/dL (14.0-18.0); Lymphocytes # (auto) 1.78 K/uL (1.2-3.4); Lymphocytes % (auto) 31.3 %; Mean Corpuscular Hemoglobin 33.4 pg (25-34); Mean Corpuscular Hgb Conc 36.1 g/dL (32-36); Mean Corpuscular Volume 92.5 fL (80-100); Mean Platelet Volume 10.1 fL (7.4-10.4); Monocytes # (auto) 0.39 K/uL (0.11-0.59); Monocytes % (auto) 6.9 %; Neutrophils # (auto) 3.25 K/uL (1.4-6.5); Neutrophils % (auto) 57.2 %; Platelet Count 171 K/uL (130-400); RDW Coefficient of Variation 12.1 % (11.5-14.5); RDW Standard Deviation 40.8 fL (36.4-46.3); Red Blood Count 4.91 M/uL (4.7-6.1); White Blood Count 5.68 K/uL (4.8-10.8)
[2019-12-22] MEDS ORDERED: PROMETHAZINE 12.5 MG/50.5 ML NSS IV ONE (22:32)
--- NOTE | 2019-12-22 22:45 | XRay Report ---
XR chest 1V portable HISTORY: 44 years-old Male epig pain acute epigastric abdominal pain COMPARISON: CT abdomen and pelvis 12/17/2019, chest radiograph 09/29/2019 TECHNIQUE: Portable AP view of the chest FINDINGS: Cardiac silhouette is upper limits of normal in size. No pneumothorax, pleural effusion, airspace con solidation or overt pulmonary edema. Bones of the chest appear grossly intact. IMPRESSION: No acute process. ACT 112: Negative or not required by law. The above report was generated using voice recognition software. It may contain grammatical, syntax o r spelling errors. Electronically signed by: Rick Álvarez M.D. 12/22/2019 10:44 PM
[2019-12-22] MEDS ORDERED: NovoLIN-R INSULIN PER UNIT CHARGE IV STA (23:05)
[2019-12-22 23:06] LABS: Alanine Aminotransferase 43 U/L (12-78); Albumin Globulin Ratio 0.8 (0.9-2); Albumin Level 3.4 gm/dl (3.4-5.0); Alkaline Phosphatase 98 U/L (45-117); Aspartate Aminotransferase 27 U/L (15-37); BUN Creatinine Ratio 5.2 (10-20); Bilirubin,Total 0.6 mg/dl (0.2-1); Blood Urea Nitrogen 6 mg/dl (7-18); Calcium 9.5 mg/dl (8.5-10.1); Carbon Dioxide 17 mmol/L (21-32); Chloride 102 mmol/L (98-107); Est GFR (African American) 89.8; Est GFR (Non-African American) 77.5; Globulin 4.5 gm/dl (2.5-4.0); Glucose 409 mg/dl (70-99); Lipase 52 U/L (73-393); Magnesium 2.2 mg/dl (1.8-2.4); Potassium 3.6 mmol/L (3.5-5.1); Sodium 135 mmol/L (136-145); Total Protein 7.9 gm/dl (6.4-8.2); Troponin I < 0.015 ng/ml (0-0.045)
[2019-12-22] MEDS: MoRPHine SULFATE 4 MG/ML 1 ML CARP\\VIAL IV PRN (23:50)
[2019-12-23] MEDS ORDERED: PROMETHAZINE HCL 12.5 MG in SODIUM CHLORIDE 0.9% 50 ML IV STA (00:28)
[2019-12-23] MEDS ORDERED: PROMETHAZINE 12.5 MG/50.5 ML NSS IV ONE (00:31)
[2019-12-23] MEDS: MoRPHine SULFATE 4 MG/ML 1 ML CARP\\VIAL IV PRN (00:32)
[2019-12-23] MEDS ORDERED: ONDANSETRON INJ 2 MG/ML 2 ML VIAL IV PRN (01:11)
[2019-12-23] MEDS ORDERED: ACETAMINOPHEN 325 MG TAB PO PRN (01:11)
[2019-12-23] MEDS ORDERED: GLUCOSE 10 TABS/TUBE PO PRN (01:30)
[2019-12-23] MEDS ORDERED: CARBOHYDRATES FOR HYPOGLYCEMIA PO PRN (01:30)
[2019-12-23] MEDS ORDERED: GLUCAGON FOR INJ 1 MG VIAL SQ PRN (01:30)
[2019-12-23] MEDS ORDERED: DEXTROSE 50% 50 ML SYRINGE IV PRN (01:30)
[2019-12-23] MEDS ORDERED: GLUCOSE 40% GEL 15 GM TUBE PO PRN (01:30)
[2019-12-23] MEDS: HYDROmorphone INJ 0.5 MG/0.5 ML SYR IV PRN ×8 (01:50→22:06)
[2019-12-23] MEDS: LACTATED RINGER'S 1,000 ML IV SCH ×5 (01:53→21:13)
[2019-12-23] MEDS: PANTOprazole 40 MG in SYRINGE 0 ML IV SCH ×2 (01:58→08:57)
--- NOTE | 2019-12-23 02:45 | History and Physical Report ---
DATE OF ADMISSION: 12/23/2019 CHIEF COMPLAINT: Abdominal pain. HISTORY OF PRESENT ILLNESS: This is a 44-year-old male with past medical history significant for ADD, mood disorder, diabetes, poorly controlled, GERD, recurrent pancreatitis, alcohol abuse, recurrent admissions for alcoholism and pancreatitis, history of PE as per records, history of chronic pain, narcotic abuse, as per records was recently in the hospital for recurrent alcoholic pancreatitis, was discharged on December 19. Again, comes back with abdominal pain. The patient says after going home was good for 1 day, then again started developing abdominal pain. After going home, he was drinking 3 beers every day. He lives with his mother, mother was concerned that he overdosed on the pain pills, but patient says he only took 3 tablets today. He says the pain is severe in his epigastric region and shooting into his chest, feeling pushing with pins in his chest and whenever he lies down sometimes feel short of breath. Has nausea. No headache, no blurred vision, no earache, no runny nose, no sore throat, no difficulty swallowing. Not eating and drinking much since last 1-2 days because of pain, any movement of the body causing severe pain in his abdomen. Denies any blood in stools or black stools. Normal bladder movements. No rash. Requesting for Dilaudid. When asked about his alcoholism, he says he decides himself when to stop drinking and he tried so many times in the past. He was in alcohol rehabilitation few times, but nothing helped him. He states that he has history of father having suicide with shooting gun on his head and he found his father with a gunshot wound on his head in the [place] and he remembers it every day and causes him anxiety.He has no thoughts to hurt himself, but he is okay to be seen by psychiatrist. ALLERGIES: No known drug allergies. PAST MEDICAL HISTORY: As mentioned above. PAST SURGICAL HISTORY: Appendectomy, cholecystectomy, vascular device placement, back surgery. FAMILY HISTORY: Mood disorder, alcoholism, heart disease. SOCIAL HISTORY: History of alcohol abuse. Nonsmoker. Lives with his mother. MEDICATIONS: On last admission, he was discharged on multivitamins 1 tablet daily, thiamine 100 mg p.o. daily, folic acid 1 mg p.o. a.m., oxycodone 5 mg p.o. q. 8 hours p.r.n., famotidine 20 mg p.o. daily, paroxetine 20 mg p.o. daily, Protonix 40 mg p.o. daily, metformin 1000 mg p.o. daily, Lantus 10 units subcutaneous daily. REVIEW OF SYMPTOMS: As per HPI. Rest of review of symptoms negative. PHYSICAL EXAMINATION: GENERAL: The patient is of moderate build, not in acute distress. VITAL SIGNS: Temperature 36.9, pulse 110, respiratory rate 20, blood pressure 87/54, oxygen 93% on room air. HEENT: No pallor, no icterus. Pupils equal, round, reactive to light. NECK: No JVD, no neck masses. Supple. CARDIOVASCULAR: S1, S2 heard, regular rate and rhythm, no murmur, no gallop. RESPIRATORY SYSTEM: Normal AP diameter. No accessory muscle use. No wheezing, no crackles. ABDOMEN: Soft, bowel sounds present. Diffuse tenderness and guarding present. No distention. CENTRAL NERVOUS SYSTEM: Cranial nerves II-XII grossly intact, nonfocal. EXTREMITIES: No edema, no erythema. LABORATORY DATA: WBC 5.6, hemoglobin 16.4, hematocrit 45.4, platelets 171. Sodium 135, potassium 3.6, chloride 102, bicarbonate 17, BUN 6, creatinine 1.1, serum glucose 409, calcium 9.5, magnesium 2.2, total bilirubin 0.6, AST 27, ALT 43, alkaline phosphatase 98. Troponin I less than 0.015. Lipase 52. Beta hydroxybutyric acid 2.2. Ethyl alcohol 254. Chest x-ray: No acute process. EKG: Normal sinus rhythm, rate of 100, no acute ST changes seen. ASSESSMENT AND PLAN: This 44-year-old male with history of recurrent pancreatitis and alcoholism, presents with alcoholism and abdominal pain. 1. Abdominal pain, most likely could be his pancreatitis acting up, or could be gastritis. Lipase is low. He just had CT of abdomen and pelvis recently, so we will hold it for now, we will keep him n.p.o., IV Ringer at 200 mL per hour, IV Zofran p.r.n. and IV Protonix 40 mg b.i.d. and consult GI in a.m. for further recommendations. 2. Alcoholism. He was just discharged a couple of days ago, we will continue banana bag in the ER, will continue home po home thiamine and folic acid, IV Ativan p.r.n. for any anxiety or agitation from alcohol withdrawal. 3. Diabetes, poorly controlled, recent HbA1c was greater than 9. Supposed to be on metformin, basal Lantus. Doubt his compliance with medications. May need refills. Received 10 of IV insulin in the ER. Probably mild DKA but will check the labs again, if does not get better, will start him on insulin drip, for now we will place him on Lantus and insulin sliding scale and closely monitor. 4. Depression and anxiety. Continue paroxetine. May need a psych consult when patient is more stable. 5. Deep venous thrombosis prophylaxis. SCDs. 6. Disposition: Closely monitor on the medical floor. Level 1 full code. MTDD
[2019-12-23] MEDS ORDERED: HYDROmorphone INJ 0.5 MG/0.5 ML SYR IV STA (03:33)
[2019-12-23] MEDS ORDERED: Nursing to Pharmacy Communication ONE ×2 (04:45→16:10)
[2019-12-23] MEDS: INSULIN ASPART 100 UNITS/ML 3 ML PEN SC SCH ×4 (06:25→21:14)
[2019-12-23 07:29] LABS: Basophils # (auto) 0.02 K/uL (0-0.2); Basophils % (auto) 0.5 %; Eosinophils # (auto) 0.29 K/uL (0-0.5); Eosinophils % (auto) 6.5 %; Hematocrit (blood only) 38.9 % (42-52); Hemoglobin 13.8 g/dL (14.0-18.0); Lymphocytes # (auto) 1.92 K/uL (1.2-3.4); Lymphocytes % (auto) 43.3 %; Mean Corpuscular Hemoglobin 32.9 pg (25-34); Mean Corpuscular Hgb Conc 35.5 g/dL (32-36); Mean Corpuscular Volume 92.8 fL (80-100); Mean Platelet Volume 9.3 fL (7.4-10.4); Monocytes # (auto) 0.33 K/uL (0.11-0.59); Monocytes % (auto) 7.4 %; Neutrophils # (auto) 1.87 K/uL (1.4-6.5); Neutrophils % (auto) 42.3 %; Platelet Count 135 K/uL (130-400); RDW Coefficient of Variation 12.2 % (11.5-14.5); RDW Standard Deviation 41.3 fL (36.4-46.3); Red Blood Count 4.19 M/uL (4.7-6.1); White Blood Count 4.43 K/uL (4.8-10.8)
[2019-12-23] MEDS ORDERED: INSULIN ASPART 100 UNITS/ML 3 ML PEN SC SCH (07:30)
[2019-12-23 08:10] LABS: BUN Creatinine Ratio 4.8 (10-20); Calcium 8.6 mg/dl (8.5-10.1); Creatinine Clr Calc Pharmacy 149.9 ml/min; Est GFR (African American) 126.8; Est GFR (Non-African American) 109.4; Potassium 3.9 mmol/L (3.5-5.1)
[2019-12-23] MEDS: THIAMINE HCL 100 MG TAB PO SCH (08:56)
[2019-12-23] MEDS: FOLIC ACID 1 MG TAB PO SCH (08:56)
[2019-12-23] MEDS: INSULIN GLARGINE SOLOSTAR 100 UNITS/ML 3 ML PEN SC SCH (09:01)
[2019-12-23] MEDS: PARoxetine HCL 20 MG TAB PO SCH (09:57)
--- NOTE | 2019-12-23 10:01 | Gastrointestinal Consultation ---
Date of Consultation December 23, 2019 Assessment & Plan (1) Alcohol abuse: Mr. Zeng's abdominal pain likely caused by recent acute on chronic pancreatitis and worsened by drinking alcohol. Consider Lyrica for chronic pain and/or pain management consult. Needs complete alcohol abstention. When able to abstain from alcohol then would likely benefit from OP GI office visit and possible repeat EUS. Present on Admission?: Yes (2) Epigastric abdominal pain: Present on Admission?: Yes Supervising Physician Co-Signing Physician Notes I have discussed the management with SHAWN Monroy. 44 yo male with chronic alcohol use leading to presumably chronic pancreatitis. Admitted through the ER for abdominal pain and presumably pancreatitis. Multiple admission for abdominal pain requesting narcotics - per admission h and p and review of the er record. Per CT from 12/17/2019 - acute inflammation noted in the pancreas, no repeat imaging done during this hospital admission presumably due to recent contrast imaging. Labs essentially unchanged. Unlikely that in a week he has developed any type of complication from pancreatitis as pseudocysts or won's tend to take much longer and he is not having fevers, chills. Given multiple suggestions of pain seeking behavior- would consider involving pain management. Lyrica could be added for further pain control for pain from pancreatitis. It is highly recommended that he avoid ethanol as this is likely contributing to his multiple episodes of pancreatitis. Agree with further plan as per Ino's plan. History of Present Illness Reason for Consultation: gastritis/pancreatiis Requesting Physician: Dr. Sousa Attending Physician: Claudia Chapa MD History of Present Illness Mr. Raffi Zeng is a 44 yr old male pt of Dr. Dhiraj Myers with a hx of DM- 2, Bipolar disease, ADD, chronic pancreatitis who continues to drink increased amts of alcohol. He presented to the ED yesterday for diffuse abdominal pain. On arrival, LFTs, lipase were normal. Alcohol level on arrival was 301mg/dl. A review of records shows that he underwent EUS in [address] during his most recent prior admission for similar symptoms suggested acute on chronic pancreatitis. Allergies Allergy/AdvReac Type Severity Reaction Status Date / Time No Known Allergies Allergy Verified 12/22/19 22:40 Home Medications Home Medications Medication Instructions Recorded Confirmed Type famotidine 20 mg PO DAILY 12/20/19 12/22/19 History folic acid 1 mg PO QAM 30 Days #30 tab 12/20/19 12/22/19 Rx oxycodone 5 mg PO Q8 PRN #10 tab 12/20/19 12/22/19 Rx pantoprazole 40 mg PO DAILY 12/20/19 12/22/19 History paroxetine HCl 20 mg PO DAILY 12/20/19 12/22/19 History thiamine HCl (vitamin B1) [Vitamin 100 mg PO QAM 30 Days #30 tab 12/20/19 12/22/19 Rx B-1] insulin glargine [Lantus Solostar 10 unit SUBCUT DAILY 12/23/19 12/23/19 History U-100 Insulin] metformin 1,000 mg PO DAILY 12/23/19 12/23/19 History Patient History Medical History Abdominal pain Acute hyperglycemia (Acute) Alcohol abuse (Chronic Unknown) Alcohol abuse (Acute) Renae's esophagus (Chronic Unknown) "per EGD 11/23/09 " On 05/31/11 09:06 Martinez Jose wrote "per EGD 11/23/09 " Chest pain Depression (Chronic) Depression (Chronic) DM type 2 (diabetes mellitus, type 2) (Chronic) Encounter for alcohol abuse counseling and surveillance (Acute) Encounter for pre-operative examination Encounter for tobacco use cessation counseling (Acute) H/O acute pancreatitis (Chronic) "recurrent" History of substance abuse (Chronic) Hyperglycemia (Acute) Intentional drug overdose (Resolved) Lumbar degenerative disc disease (Chronic) Mood disorder (Chronic) Mood disorder (Chronic) Neuropathy (Acute) Pancreatitis (Acute) Panic disorder (Chronic) Pulmonary embolism (Resolved) Suicidal ideation (Chronic) Suicidal ideation (Resolved) Suicide attempt (Resolved) Surgical History H/O esophagogastroduodenoscopy (Chronic) "EGD 11/23/2009- mild gastritis, suspicious for gastroparesis, Z-line irregular EUS 02/04/2010- mild chronic pancreatitis, pronounced cholesterolosis of gallbladder, no biliary dilation or stones, probable gastroparesis EGD 10/31/2014- gastritis" S/P lumbar fusion (Resolved) L4-S1 2014 Family History Father Alcohol abuse Social History Preferred Language: French Communication Ability: Effective 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 Beliefs That Will Affect Care: None Current Living Situation: Parent Current Living Situation Comment: with mother Other Information That Helps Us Care for You: No Feels Safe at Home: Yes Safety Concerns: Feels Safe At This Time Smoking Status: Never smoker Tobacco Type: smokeless tobacco ; Do You Dip or Chew Tobacco: Yes ; Second Hand Exposure: Yes ; Tobacco Cessation Education Requested by Patient: No Hx Alcohol Use: Yes Alcohol type: beer Hx Substance Use: No Review of Systems Review of Systems: See HPI for ROS Physical Exam Physical Exam: Deferred Results & Data ([facility]) Vital Signs (Past 12 Hours) Vital Signs Temp Pulse Pulse Resp BP BP Pulse Ox 12/23/19 07:12 36.5 C 76 18 110/69 95 12/23/19 01:17 36.6 C 105 H 20 125/80 94 12/23/19 00:44 112 H 20 94/62 L 98 12/22/19 23:37 111 H 20 87/54 L 93 12/22/19 22:21 91 12/22/19 22:12 36.9 C 108 H 18 108/64 91
[2019-12-23] MEDS: LORazepam 1 MG/2 ML VIAL IV PRN (16:05)
--- NOTE | 2019-12-23 16:53 | Electrocardiogram Report ---
Test Reason : Blood Pressure : / mmHG Vent. Rate : 100 BPM Atrial Rate : 100 BPM P-R Int : 148 ms QRS Dur : 084 ms QT Int : 352 ms P-R-T Axes : 052 046 047 degrees QTc Int : 454 ms Normal sinus rhythm Normal ECG When compared with ECG of 17-DEC-2019 21:30, Criteria for Anteroseptal infarct are no longer Present ST no longer depressed in Anterior leads Confirmed by Danilo Grimes ([id number]) on 12/23/2019 4:52:53 PM Referred By: REFERRED SELF Confirmed By:Jere Grimes
--- NOTE | 2019-12-23 17:12 | Hospitalist Progress Note ---
Date of Service December 23, 2019 Assessment & Plan (1) Alcohol withdrawal: hx of ETOH abuse recurrent alcoholic pancreatitis recently discharged form [facility] with similar complain pt started to drink heavily again after being discharged on admission ETOH level > 200 presented to ED yesterday with severe abdominal pain , nausea , vomiting pt started on ETOH withdrawl protocol tolerating clears pt was adament about getting discharged , willing to sign AMA papers later decided to stay overnight for abdominal pain repeated counselling provided for ETOH abstinece PT is not interested in rehab or seeking any help was in rehab multiple times -did not help aware of life threatening consequeces of ongoing ETOH abuse cont IV fluid will advance diet as tolerated due to hx of abuse and addiction pt will not be discharged with any BDZ or narcotic pain meds TYPE 2 DM : has been non compliant on meds due to ETOH intoxication /abuse counselling provided regarding effects of uncontrolled DM - FULL CODE dispositiON : D/C home in next 1-2 days after WTOH withdrawal s/s subsides Admission and Anticipated Discharge Date Admission Date: December 23, 2019 Subjective complain of abdominal pain no nausea or vomiting admits of drinking heavily after discharged from hospital few days back initially was adament about leaving AMA pt is counselled about serious consequences of ETOH withdrawl -seizure decided to stay over night later Review of Systems Review of Systems: All systems reviewed & are unremarkable except as noted in HPI & below Physical Exam Constitutional: WD/WN, vitals as above + ill appearing anxious Eyes: PERRL, conjunctivae normal, anicteric sclerae ENMT: external ear and nose normal, oropharynx normal Neck: trachea midline, no thyromegaly Respiratory: normal respiratory effort, lungs clear to auscultation Cardiovascular: RRR, no murmur, no edema Gastrointestinal (Abdomen): normal bowel sounds, soft, nontender, no hepatosplenomegaly Musculoskeletal: no cyanosis or clubbing, extremities motor strength 5/5 Skin: no rashes, warm and dry Neurologic: PERRL, EOMI, accommodation nl, no face palsy, no dysarthria Motor/Sensory: + tremor anxious Psychiatric: Orientation: alert and oriented x 3 Affect: + anxious affect Mood: + anxious mood Insight: + poor insight Results & Data Results & Data ([facility]) Vital Signs (Past 12 Hours) Vital Signs Temp Pulse Pulse Resp BP Pulse Ox 12/23/19 15:58 37 C 76 16 122/80 99 12/23/19 11:20 36.6 C 76 14 118/76 98 12/23/19 07:12 36.5 C 76 18 110/69 95
[2019-12-23] MEDS: PANTOprazole 40 MG TAB PO SCH (20:04)
[2019-12-24] MEDS: HYDROmorphone INJ 0.5 MG/0.5 ML SYR IV PRN ×5 (00:08→08:15)
[2019-12-24] MEDS: LACTATED RINGER'S 1,000 ML IV SCH ×2 (02:07→07:19)
[2019-12-24 07:17] LABS: Albumin Level 2.5 gm/dl (3.4-5.0); BUN Creatinine Ratio 6.2 (10-20); Bilirubin Direct 0.2 mg/dl (0-0.2); Calcium 8.6 mg/dl (8.5-10.1); Creatinine Clr Calc Pharmacy 122.5 ml/min; Est GFR (African American) 113.7; Est GFR (Non-African American) 98.1; Magnesium 1.7 mg/dl (1.8-2.4); Potassium 3.7 mmol/L (3.5-5.1)
[2019-12-24 07:25] LABS: Bilirubin,Total 0.7 mg/dl (0.2-1); Total Protein 6.1 gm/dl (6.4-8.2)
[2019-12-24 07:55] VITALS: BP 144/83; O2SAT 97
[2019-12-24 08:25] VITALS: TEMP 98.2
[2019-12-24] MEDS: PANTOprazole 40 MG TAB PO SCH (08:33)
[2019-12-24] MEDS: THIAMINE HCL 100 MG TAB PO SCH (08:34)
[2019-12-24] MEDS: PARoxetine HCL 20 MG TAB PO SCH (08:34)
[2019-12-24] MEDS: FOLIC ACID 1 MG TAB PO SCH (08:34)
[2019-12-24] MEDS: INSULIN GLARGINE SOLOSTAR 100 UNITS/ML 3 ML PEN SC SCH (08:52)
[2019-12-24] MEDS: INSULIN ASPART 100 UNITS/ML 3 ML PEN SC SCH (08:53)
[2019-12-24] MEDS: LORazepam 1 MG/2 ML VIAL IV PRN (09:33)
[2019-12-24] MEDS ORDERED: HYDROmorphone INJ 0.5 MG/0.5 ML SYR IV PRN (10:28)
[2019-12-24 11:12] VITALS: PULSE 78
--- NOTE | 2019-12-24 16:15 | Discharge Summary ---
Date of Service December 24, 2019 Admission HPI Per Admitting Provider DICTATED BY: Jed Sousa MD DATE OF ADMISSION: 12/23/2019 CHIEF COMPLAINT: Abdominal pain. HISTORY OF PRESENT ILLNESS: This is a 44-year-old male with past medical history significant for ADD, mood disorder, diabetes, poorly controlled, GERD, recurrent pancreatitis, alcohol abuse, recurrent admissions for alcoholism and pancreatitis, history of PE as per records, history of chronic pain, narcotic abuse, as per records was recently in the hospital for recurrent alcoholic pancreatitis, was discharged on December 19. Again, comes back with abdominal pain. The patient says after going home was good for 1 day, then again started developing abdominal pain. After going home, he was drinking 3 beers every day. He lives with his mother, mother was concerned that he overdosed on the pain pills, but patient says he only took 3 tablets today. He says the pain is severe in his epigastric region and shooting into his chest, feeling pushing with pins in his chest and whenever he lies down sometimes feel short of breath. Has nausea. No headache, no blurred vision, no earache, no runny nose, no sore throat, no difficulty swallowing. Not eating and drinking much since last 1-2 days because of pain, any movement of the body causing severe pain in his abdomen. Denies any blood in stools or black stools. Normal bladder movements. No rash. Requesting for Dilaudid. When asked about his alcoholism, he says he decides himself when to stop drinking and he tried so many times in the past. He was in alcohol rehabilitation few times, but nothing helped him. He states that he has history of father having suicide with shooting gun on his head and he found his father with a gunshot wound on his head in the [place] and he remembers it every day and causes him anxiety.He has no thoughts to hurt himself, but he is okay to be seen by psychiatrist. Principal Diagnosis ALCOHOL ABUSE /INTOXICATION ABDOMINAL PAIN DUE TO ALCOHOL ABUSE Discharge Exam Constitutional WD/WN, vitals as above + ill appearing Eyes PERRL, conjunctivae normal, anicteric sclerae ENMT external ear and nose normal, oropharynx normal Neck trachea midline, no thyromegaly Respiratory normal respiratory effort, lungs clear to auscultation Cardiovascular RRR, no murmur, no edema Gastrointestinal (Abdomen) normal bowel sounds, soft, nontender, no hepatosplenomegaly Musculoskeletal no cyanosis or clubbing, extremities motor strength 5/5 Skin no rashes, warm and dry Neurologic PERRL, EOMI, accommodation nl, no face palsy, no dysarthria Motor/Sensory: + tremor Psychiatric Orientation: alert and oriented x 3 Discharge Data Allergies Allergy/AdvReac Type Severity Reaction Status Date / Time No Known Allergies Allergy Verified 12/22/19 22:40 Consultations 12/22/19 23:19 ED Decision to Admit Stat 12/23/19 01:11 Consult Case Management - Discharge Planning Routine 12/23/19 08:00 Consult Gastroenterology Routine Hospital Course (1) Alcohol withdrawal: hx of ETOH abuse recurrent alcoholic pancreatitis recently discharged form [facility] with similar complain pt started to drink heavily again after being discharged on admission ETOH level > 200 presented to ED ywith severe abdominal pain , nausea , vomiting pt started on ETOH withdrawl protocol GI symptoms has subsided diet advanced to solid , tolerating well repeated counselling provided for ETOH abstinence PT is not interested in rehab or seeking any help was in rehab multiple times -did not help aware of life threatening consequeces of ongoing ETOH abuse no s/s of ETOH withdrawl discharged home today due to hx of abuse and addiction pt discharged without any BDZ or narcotic pain meds TYPE 2 DM : has been non compliant on meds due to ETOH intoxication /abuse counselling provided regarding effects of uncontrolled DM - FULL CODE dispositiON : Dc home today Total Time Total Time Spent Total Time Spent (In Minutes): 35 mins Total Time Includes: Discharge Planning and Medication Reconciliation Discharge Plan Discharge Items Patient Disposition: Home - Self-Care Reason For Visit: ABDOMINAL PAIN Discharge Diagnosis: ALCOHOL ABUSE /INTOXICATION ABDOMINAL PAIN DUE TO ALCOHOL ABUSE Condition on Discharge: Fair Activity: Resume your previous activity Non-emergency contact: Primary Care Provider Call non-emergency contact if: you have any medication questions Follow-up/Referrals: Dhiraj Myers DO [Primary Care Provider] - 12/27/19 11:00 am Diet: Low Fat Addtl Attending Provider Instructions: Hospital follow up Dhiraj Myers DO [Primary Care Provider] - 12/27/19 11:40 am General Internal Medicine [facility] it is very important for you to quit Drinking Alcohol you are at high risk for liver failure , heart failure /heart attack , kidney failure /early onset of dementia -of continue to drink Alcohol heavily please seek professional help -counselling , rehab Pending Studies at Discharge: No Stand-Alone Forms: My [facility], Opioid Pain Management, Smoking Cessation Medications and DC Order Prescriptions: Continued thiamine HCl (vitamin B1) [Vitamin B-1] 100 mg Tablet 100 mg PO QAM 30 Days Qty: 30 RF: 0 folic acid 1 mg Tablet 1 mg PO QAM 30 Days Qty: 30 RF: 0 oxycodone 5 mg Tablet 5 mg PO Q8 PRN (Reason: pain) Qty: 10 RF: 0 famotidine 20 mg tablet 20 mg PO DAILY RF: 0 paroxetine HCl 20 mg tablet 20 mg PO DAILY RF: 0 pantoprazole 40 mg tablet,delayed release (DR/EC) 40 mg PO DAILY RF: 0 metformin 500 mg tablet extended release 24 hr 1,000 mg PO DAILY RF: 0 Lantus Solostar U-100 Insulin 100 unit/mL (3 mL) insulin pen 10 unit SUBCUT DAILY RF: 0 Discharge Orders: Discharge Order (Routine); Ordered 12/24/19 Ordered By: Claudia Bowden/Other Patient Handouts: Abuse Alcohol Life After Combat, Alcohol Use Disorder, Alcoholism Myths Facts, Alcoholism How to be Part of the Solution, Alcoholism Resources, Alcoholism Get Help, Addiction Alcohol, Addiction Social Use Signs, Alcohol Withdrawal What to Expect, Addiction Ask These Questions, Addiction Get Help, Addiction Recovery, Addiction Recovery Counseling, Addiction Recovery [place] [facility] Relapse Admission Data Admit Date/Time: 12/23/19 00:14 Attending Provider: Claudia Chapa Admit Provider: Jed Sousa Primary Care Provider: Dhiraj Myers Other Providers: Jed Sousa ; Ino Alvares ; Roselyn Peters ; Dami Luo ; Maryjane Panchal ; Homero Mullen ; Deborah Molina ; Sanjay Bass ; Jaymie Hartmann ; Faizan Garsia ; Colton Moreland ; Christina Gill ; Margaret Banegas ; Marika Parrish ; So Prakash ; Camila Gentile Other Interventions: Discharge Summary Assessment (RN) Last Done: 12/24/19 11:10 DC Date/Time DO NOT enter until pt leaves facility: 12/24/19 11:51
--- NOTE | 2020-01-01 09:56 | Coding Query ---
CODING QUERY To promote full compliance with coding requirements relating to patient care, provider participation is requested in all cases of marker hand uncertainty. Please assist us with the question(s) below: Coding Question(s): Alcohol dependence and alcohol abuse are both documented throughout the record. Please indicate below which diagnosis is most accurate for this patient. Physician's Response(s): ( x ) Alcohol abuse ( ) Alcohol dependence Thank you Stephanie Domínguez Principal Diagnosis: "that condition established after study, to be chiefly responsible for occasioning the admission of the patient to the hospital for care." Co-Existing Principal Diagnosis: "when two or more diagnoses equally meet the criteria for principal diagnosis as determined by the circumstances of admission, diagnostic work up, and/or therapy provided, and the Alphabetic Index, Tabular List, or another coding guideline does not provide sequencing direction, any one of the diagnoses may be sequenced first." "When the physician has documented what appears to be a current diagnosis in the body of the record, but has not included the diagnosis in the final diagnostic statement, the physician should be asked whether the diagnosis should be added." ([facility] 2 QTR90. p3-4) MARGARET
--- NOTE | 2020-01-01 09:56 | Coding Query ---
CODING QUERY FOR UNCONTROLLED DIABETES To promote full compliance with coding requirements relating to patient care, provider participation is requested in all cases of family service assistant uncertainty. Please assist us with the question(s) below: Coding Question: The term uncontrolled Diabetes was used throughout the record. To be able to code this diagnosis properly, could you please clarify the diagnosis below: ( ) Uncontrolled Diabetes meaning hypoglycemia ( x ) Uncontrolled Diabetes meaning hyperglycemia ( ) Other (please specify) Principal Diagnosis: "that condition established after study, to be chiefly responsible for occasioning the admission of the patient to the hospital for care." Co-Existing Principal Diagnosis: "when two or more diagnoses equally meet the criteria for principal diagnosis as determined by the circumstances of admission, diagnostic work up, and/or therapy provided, and the Alphabetic Index, Tabular List, or another coding guideline does not provide sequencing direction, any one of the diagnoses may be sequenced first." "When the physician has documented what appears to be a current diagnosis in the body of the record, but has not included the diagnosis in the final diagnostic statement, the physician should be asked whether the diagnosis should be added." ([facility] 2 QTR90. p3-4) MARGARET
--- NOTE | 2020-01-01 09:57 | Coding Query ---
To promote full compliance with coding requirements relating to patient care, provider participation is requested in all cases of tracer clerk uncertainty. Please assist us with the question(s) below: Coding Question(s): The diagnosis below was documented in the H&P then subsequently fell off all further documentation. Please indicate if it is still a possible diagnosis or ruled out. Physician's Response(s): DIABETIC KETOACIDOSIS ( ) Diagnosed and POA ( ) Diagnosed and not POA ( x ) Ruled out ( ) Other (please specify) MTDD
== END 2019-12-24 11:51 | disposition home or self-care (01) | DRG 897 ==
LOC: ED 22:02 → OBSVTOIN 12-23 00:14 → 3E 12-23 00:14 → INTOOBSV 12-23 00:14 → 3E 12-23 00:57

== ENCOUNTER 2020-01-01 21:03 | Inpatient (IN) ==
[2020-01-01] MEDS ORDERED: SODIUM CHLORIDE 0.9% 1000ML 1,000 ML IV ONE (22:23)
[2020-01-01] MEDS ORDERED: KETOROLAC TROMETHAMINE 15 MG/ML VIAL IV STA (22:23)
[2020-01-01 22:43] LABS: Basophils # (auto) 0.04 K/uL (0-0.2); Basophils % (auto) 0.7 %; Eosinophils # (auto) 0.25 K/uL (0-0.5); Eosinophils % (auto) 4.3 %; Hematocrit (blood only) 45.4 % (42-52); Hemoglobin 16.5 g/dL (14.0-18.0); Immature Granulocytes # (auto) 0.01 K/uL (0.00-0.02); Immature Granulocytes % (auto) 0.2 %; Mean Corpuscular Hemoglobin 33.6 pg (25-34); Mean Corpuscular Hgb Conc 36.3 g/dL (32-36); Mean Corpuscular Volume 92.5 fL (80-100); Mean Platelet Volume 9.3 fL (7.4-10.4); Monocytes # (auto) 0.27 K/uL (0.11-0.59); Monocytes % (auto) 4.6 %; Neutrophils % (auto) 61.2 %; Platelet Count 264 K/uL (130-400); RDW Coefficient of Variation 12.3 % (11.5-14.5); RDW Standard Deviation 41.5 fL (36.4-46.3); Red Blood Count 4.91 M/uL (4.7-6.1); White Blood Count 5.87 K/uL (4.8-10.8)
[2020-01-01 22:53] LABS: Appearance Urine Clear (Clear); Bilirubin Urine Negative (Negative); Blood Urine Negative (Negative); Color Urine Yellow; Glucose Urine UA 1+ (Negative); Ketones Urine Negative (Negative); Leukocyte Esterase Urine Negative (Negative); Nitrite Urine Negative (Negative); Protein Urine Negative (Negative); Specific Gravity Urine 1.007 (1.000-1.030); Urobilinogen Urine Negative (Negative)
[2020-01-01 22:54] LABS: Partial Thromboplastin Ratio 0.9; Partial Thromboplastin Time 25.6 Seconds (21.0-31.0); Prothrombin Time 10.9 Seconds (9.0-12.0)
[2020-01-01] MEDS ORDERED: fentaNYL citrate 100 MCG/2 ML VIAL IV STA (22:59)
[2020-01-01 23:00] LABS: Alanine Aminotransferase 53 U/L (12-78); Albumin Level 3.7 gm/dl (3.4-5.0); Aspartate Aminotransferase 28 U/L (15-37); BUN Creatinine Ratio 5.8 (10-20); Blood Urea Nitrogen 5 mg/dl (7-18); Calcium 9.8 mg/dl (8.5-10.1); Carbon Dioxide 27 mmol/L (21-32); Chloride 104 mmol/L (98-107); Creatinine Clr Calc Pharmacy 123.5 ml/min; Est GFR (African American) 115.2; Est GFR (Non-African American) 99.4; Glucose 176 mg/dl (70-99); Lipase 61 U/L (73-393); Potassium 3.8 mmol/L (3.5-5.1); Sodium 137 mmol/L (136-145)
[2020-01-01 23:03] LABS: Albumin Globulin Ratio 0.8 (0.9-2); Alkaline Phosphatase 101 U/L (45-117); Bilirubin,Total 0.6 mg/dl (0.2-1); Globulin 4.6 gm/dl (2.5-4.0); Total Protein 8.3 gm/dl (6.4-8.2)
[2020-01-01 23:16] LABS: Troponin I < 0.015 ng/ml (0-0.045)
[2020-01-02] MEDS ORDERED: IOVERSOL 100ml IV PRN (00:10)
[2020-01-02] MEDS ORDERED: ACETAMINOPHEN 1,000 MG/100 ML VIAL IV STA (00:26)
[2020-01-02] MEDS ORDERED: GI COCKTAIL ED USE PO ONE (00:26)
[2020-01-02] MEDS ORDERED: LORazepam 1 MG/2 ML VIAL IV PRN (01:42)
[2020-01-02] MEDS ORDERED: MoRPHine SULFATE 4 MG/ML 1 ML CARP\\VIAL IV STA (01:42)
[2020-01-02] MEDS ORDERED: LORazepam 2 MG/4 ML VIAL IV PRN (01:42)
[2020-01-02] MEDS ORDERED: ACETAMINOPHEN 10MG/ML PEDIATRIC DOSING IV PRN (01:42)
[2020-01-02] MEDS ORDERED: GABAPENTIN 1200MG ALCOHOL WITHDRAWAL LOAD PO STA (01:42)
[2020-01-02] MEDS ORDERED: ATIVAN IV ALCOHOL WITHDRAWL IV PRN (01:42)
[2020-01-02] MEDS ORDERED: LORazepam 3 MG/6 ML VIAL IV PRN (01:42)
[2020-01-02] MEDS ORDERED: GLUCOSE 10 TABS/TUBE PO PRN (02:00)
[2020-01-02] MEDS ORDERED: ACETAMINOPHEN 1,000 MG/100 ML VIAL IV PRN (02:00)
[2020-01-02] MEDS ORDERED: GLUCAGON FOR INJ 1 MG VIAL SQ PRN (02:00)
[2020-01-02] MEDS ORDERED: CARBOHYDRATES FOR HYPOGLYCEMIA PO PRN (02:00)
[2020-01-02] MEDS ORDERED: GABAPENTIN 600 MG TAB PO SCH (02:00)
[2020-01-02] MEDS ORDERED: GLUCOSE 40% GEL 15 GM TUBE PO PRN (02:00)
[2020-01-02] MEDS ORDERED: DEXTROSE 50% 50 ML SYRINGE IV PRN (02:00)
--- NOTE | 2020-01-02 02:27 | History and Physical Report ---
DATE OF ADMISSION: 01/02/2020 CHIEF COMPLAINT: Abdominal pain. HISTORY OF PRESENT ILLNESS: This is a 44-year-old male with past medical history significant for ADHD, mood disorder, poorly controlled diabetes, GERD, recurrent pancreatitis, recurrent admissions for alcohol abuse and pancreatitis, history of PE as per records, history of chronic pain, narcotic abuse as per records. Was recently in the hospital, discharged on 12/24/2019 and again comes back with abdominal pain. This is third admission in this month. The patient says he is still drinking 7 beers of alcohol every day and since yesterday he is having again epigastrium and right upper quadrant abdominal pain radiating to chest and back, severe in nature, several episodes of nausea, vomiting and several episodes of diarrhea, no blood in the vomitus. Denies any other complaints. No fever, no cough, no chest pain. No headache, no dizziness, no blurred vision, no earache, he has some runny nose, no sore throat. Currently, resting comfortable and hemodynamically stable. ALLERGIES: No known drug allergies. PAST MEDICAL HISTORY: As mentioned above. PAST SURGICAL HISTORY: Appendectomy, cholecystectomy, vascular device placement, back surgery. MEDICATIONS: Folic acid 1 mg p.o. daily, gabapentin 300 mg p.o. at bedtime, Lantus 10 units subcutaneous at bedtime, Protonix 40 mg p.o. daily, paroxetine 20 mg p.o. daily, thiamine 100 mg p.o. daily. FAMILY HISTORY: Significant for mood disorder, alcoholism, heart disease. SOCIAL HISTORY: History of alcohol abuse. Nonsmoker. Lives with his mother. REVIEW OF SYMPTOMS: As per HPI. Rest of review of symptoms negative. PHYSICAL EXAMINATION: GENERAL: The patient is of moderate build, not in acute distress. VITAL SIGNS: Temperature 36.5, pulse 88, respiratory rate 18, blood pressure 115/76, oxygen 96% on room air. HEENT: Pupils equal, round, and reactive to light. NECK: No JVD, no neck masses. CARDIOVASCULAR: S1, S2 heard, regular rate and rhythm, no murmur, no gallop. RESPIRATORY SYSTEM: Normal AP diameter. No accessory muscle use. No wheezing, no crackles. ABDOMEN: Soft, bowel sounds present. Tenderness in the epigastrium and right upper quadrant region. Guarding present. No rigidity, no distention. CENTRAL NERVOUS SYSTEM: No distention Cranial nerves II-XII grossly intact. Nonfocal. EXTREMITIES: No edema, no erythema. LABORATORY DATA: WBC 5.8, hemoglobin 16.4, hematocrit 45.4, platelets 264. PT 10.9, INR 1, APTT 25.6. Sodium 137, potassium 3.8, chloride 104, bicarbonate 27, BUN 5, creatinine 0.9, serum glucose 176, calcium 9.8, total bilirubin 0.6, AST 28, ALT 53, alkaline phosphorus 101. Troponin I less than 0.015. Lipase 61. Urinalysis negative. Ethyl alcohol 252. EKG: Normal sinus rhythm, rate of 97, no significant change was found. IMAGING: CT of abdomen and pelvis preliminary report unremarkable except for slightly enlarged appendix 10 mm diameter. ASSESSMENT AND PLAN: This is a 44-year-old male who presents with recurrent abdominal pain. 1. Recurrent abdominal pain, mostly secondary to alcoholic gastritis. Lipase is normal. We will keep him n.p.o., IV fluids. The patient has narcotic abuse so we will just give 1 dose of morphine for now and place him on Tylenol p.r.n., IV Protonix b.i.d. Consult GI in a.m. 2. Alcoholism: Withdrawal protocol with gabapentin, p.o., thiamine, p.o. folic acid. 3. Diabetes, noncompliant. Continue his home Lantus and sliding scale. 4. Depression: Continue paroxetine. 5. Deep venous thrombosis prophylaxis, sequential compression devices. DISPOSITION: Admit to medical floor. Expect discharge home and follow with his family doctor. Level 1 full code. MTDD
[2020-01-02] MEDS: ONDANSETRON INJ 2 MG/ML 2 ML VIAL IV PRN ×2 (02:30→19:54)
[2020-01-02] MEDS: SODIUM CHLORIDE 0.9% 1000ML 1,000 ML IV SCH ×3 (03:30→17:44)
--- NOTE | 2020-01-02 03:44 | Emergency Department Note ---
History of Present Illness General Chief complaint: Abdominal Pain Stated complaint: DOC REF TO COME BACK-STILL HAVING STOMACH ISSUES Time Seen by Provider: 01/01/20 22:04 Source: patient Mode of arrival: ambulatory Limitations: no limitations History of Present Illness Maximum Pain Intensity: 6 This patient is a 44-year-old male who presents to the emergency department for evaluation of abdominal pain. The patient states that he was seen here a few days ago for the same symptoms. He reports that he got a call from the emergency department today stating that they were concerned about him and when he said he felt worse, they recommended he come back in. He states that he has pain in his right upper abdomen with radiation into the chest. He states the pain went away briefly after discharge from here, but has now worsened. He has vomiting and states it has been more painful to take a deep breath. He reports a history of pancreatitis, GERD and gastritis. He states that his PCP recently referred him for an EGD. Patient does continue to drink alcohol and states that he has had 7 beers today. He does drink daily. He reports he has had a prior appendectomy and cholecystectomy. He rates his pain a 7/10. He denies fevers, diarrhea or urinary symptoms. Home Medications Home Medications Medication Instructions Recorded Confirmed Type folic acid 1 mg PO QAM 30 Days #30 tab 12/20/19 01/01/20 Rx oxycodone 5 mg PO Q8 PRN #10 tab 12/20/19 01/01/20 Rx pantoprazole 40 mg PO DAILY 12/20/19 01/01/20 History paroxetine HCl 20 mg PO DAILY 12/20/19 01/01/20 History thiamine HCl (vitamin B1) [Vitamin 100 mg PO QAM 30 Days #30 tab 12/20/19 01/01/20 Rx B-1] Lantus Solostar U-100 Insulin 5 unit SUBCUT HS 12/23/19 01/01/20 History gabapentin 300 mg PO HS 12/30/19 01/01/20 History Allergies Allergy/AdvReac Type Severity Reaction Status Date / Time No Known Allergies Allergy Verified 01/01/20 21:47 Past Med/Surg History Medical History Abdominal pain Acute hyperglycemia (Acute) Alcohol abuse (Chronic Unknown) Alcohol abuse (Acute) Renae's esophagus (Chronic Unknown) "per EGD 11/23/09 " On 05/31/11 09:06 Martinez Jose wrote "per EGD 11/23/09 " Chest pain Depression (Chronic) Depression (Chronic) DM type 2 (diabetes mellitus, type 2) (Chronic) Encounter for alcohol abuse counseling and surveillance (Acute) Encounter for pre-operative examination Encounter for tobacco use cessation counseling (Acute) H/O acute pancreatitis (Chronic) "recurrent" History of substance abuse (Chronic) Hyperglycemia (Acute) Intentional drug overdose (Resolved) Lumbar degenerative disc disease (Chronic) Mood disorder (Chronic) Mood disorder (Chronic) Neuropathy (Acute) Pancreatitis (Acute) Panic disorder (Chronic) Pulmonary embolism (Resolved) Suicidal ideation (Chronic) Suicidal ideation (Resolved) Suicide attempt (Resolved) Surgical History H/O esophagogastroduodenoscopy (Chronic) "EGD 11/23/2009- mild gastritis, suspicious for gastroparesis, Z-line irregular EUS 02/04/2010- mild chronic pancreatitis, pronounced cholesterolosis of ga llbladder, no biliary dilation or stones, probable gastroparesis EGD 10/31/2014- gastritis" S/P lumbar fusion (Resolved) L4-S1 2014 Social History Preferred Language: Nepali Communication Ability: Effective 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 Beliefs That Will Affect Care: None Current Living Situation: Parent Current Living Situation Comment: with mother Feels Safe at Home: Yes Smoking Status: Never smoker Tobacco Type: smokeless tobacco ; Do You Dip or Chew Tobacco: No ; Second Hand Exposure: Yes ; Hx Alcohol Use: Yes Alcohol type: beer Hx Substance Use: No Review of Systems A total of 10 systems reviewed and were otherwise negative Physical Exam Vital Signs Vital Signs - 24 hr 01/01/20 21:06 01/01/20 22:44 01/02/20 00:34 Temperature 36.5 C Temperature Source Oral Pulse Rate 99 H 99 H Pulse Rate [Right Finger] 96 H Pulse Rate from SpO2 Sensor 99 H Respiratory Rate 18 14 16 Respiratory Effort / Characteristics Non-Labored Non-Labored Spontaneous Respiratory Depth Normal Normal Respiratory Pattern Regular Regular Blood Pressure 168/94 H 126/84 Blood Pressure [Left Arm] 116/69 Blood Pressure Mean 118 96 Blood Pressure Mean [Left Arm] 84 Blood Pressure Position [Left Arm] Lying Pulse Oximetry 97 98 95 Oxygen Delivery Method Room Air Room Air Room Air Sepsis Recent Fever Within 48 Hours No Sepsis Action Taken by Nursing No Action Required 01/02/20 01:00 Temperature Temperature Source Pulse Rate Pulse Rate [Right Finger] 88 Pulse Rate from SpO2 Sensor Respiratory Rate 18 Respiratory Effort / Characteristics Respiratory Depth Respiratory Pattern Blood Pressure Blood Pressure [Left Arm] 115/76 Blood Pressure Mean Blood Pressure Mean [Left Arm] 89 Blood Pressure Position [Left Arm] Pulse Oximetry 96 Oxygen Delivery Method Room Air Sepsis Recent Fever Within 48 Hours Sepsis Action Taken by Nursing VITALS: Vitals are noted on the nurse's note and reviewed by myself. Vital signs stable. GENERAL: This is a 44-year-old male, holding his abdomen, appears to be in pain. SKIN: The skin was without rashes. HEAD: Normocephalic atraumatic. EARS: External auditory canals clear, tympanic membranes pearly joshua without erythema or effusion bilaterally. EYES: Pupils equal round and reactive to light and accommodation. No scleral icterus. MOUTH: Mucous membranes moist. Tonsils are not enlarged. Pharynx without erythema or exudate. NECK: Supple without nuchal rigidity. No lymphadenopathy. HEART: Regular rate and rhythm without murmurs gallops or rubs. LUNGS: Clear to auscultation bilaterally without wheezes, rales or rhonchi. No retractions or accessory muscle use. ABDOMEN: Positive bowel sounds x 4. The abdomen is soft and nondistended. There is tenderness to palpation in the right upper quadrant and epigastric region. Patient is guarding in the right upper quadrant. NEURO: Patient was alert and oriented to person place and time. Course Administered Medications Sodium Chloride (Nss 1000ml) 1,000 mls @ 150 mls/hr IV .Q6H40M RAMOS Stop: 02/01/20 03:29 Last Admin: 01/02/20 03:30 Dose: 150 mls/hr Documented by: [id number] Ondansetron HCl (Zofran) 4 mg IV Q6H PRN PRN Reason: Nausea Stop: 02/01/20 01:41 Last Admin: 01/02/20 02:30 Dose: 4 mg Documented by: [id number] Discontinued Medications Al Hydrox/Mg Hydrox/Simethicone () 1 dose PO ONE ONE Stop: 01/02/20 00:27 Last Admin: 01/02/20 00:31 Dose: 1 dose Documented by: [id number] Fentanyl Citrate (Fentanyl Citrate) 100 mcg IV NOW STA Stop: 01/01/20 23:00 Last Admin: 01/01/20 23:06 Dose: 100 mcg Documented by: [id number] Gabapentin (Neurontin) 1,200 mg PO TODAY@0200 RAMOS Stop: 01/02/20 02:01 Last Admin: 01/02/20 03:10 Dose: 1,200 mg Documented by: [id number] Sodium Chloride (Nss 1000ml) 1,000 mls @ 999 mls/hr IV .Q1H1M ONE Stop: 01/01/20 23:23 Last Infusion: 01/01/20 23:44 Dose: 0 mls/hr Documented by: [id number] Admin: 01/01/20 22:40 Dose: 999 mls/hr Documented by: [id number] Acetaminophen (Ofirmev) 1,000 mg in 100 mls @ 400 mls/hr IV NOW STA Stop: 01/02/20 00:40 Last Infusion: 01/02/20 00:44 Dose: 0 mls/hr Documented by: [id number] Admin: 01/02/20 00:30 Dose: 400 mls/hr Documented by: [id number] Ioversol (Optiray 320 100ml) 100 ml IV ONCE PRN PRN Reason: Interaction Checking Stop: 01/06/20 00:09 Last Admin: 01/02/20 00:10 Dose: 93 ml Documented by: [id number] Ketorolac Tromethamine (Toradol) 15 mg IV NOW STA Stop: 01/01/20 22:24 Last Admin: 01/01/20 22:40 Dose: 15 mg Documented by: [id number] Morphine Sulfate (Morphine Sulfate) 3 mg IV NOW STA Stop: 01/02/20 01:43 Last Admin: 01/02/20 01:56 Dose: 3 mg Documented by: [id number] Medical Decision Making Differential Diagnosis Differential diagnosis includes appendicitis, diverticulitis, bowel obstruction, inflammatory bowel disease, renal colic, PUD, biliary pathology, pancreatitis, mesenteric ischemia, aortic pathology, infection, genitourinary, UTI, perforated viscus, among others. Medical Records Attestation: I reviewed the patient's medical records. Patient seen here 2 days ago. Patient with multiple previous visits and admissions. Home Medications Current Medication List: was personally reviewed by me Laboratory Data Attestation: I reviewed the patient's lab results. Result diagrams: 01/01/20 22:28 01/01/20 22:28 Lab Results 01/01/20 01/01/20 01/01/20 Range/Units 21:40 22:28 22:28 WBC 5.87 (4.8-10.8) K/uL RBC 4.91 (4.7-6.1) M/uL Hgb 16.5 (14.0-18.0) g/dL Hct 45.4 (42-52) % MCV 92.5 (80-100) fL MCH 33.6 (25-34) pg MCHC 36.3 H (32-36) g/dL RDW Std Deviation 41.5 (36.4-46.3) fL RDW Coeff of Gucci 12.3 (11.5-14.5) % Plt Count 264 (130-400) K/uL MPV 9.3 (7.4-10.4) fL Immature Gran % (Auto) 0.2 % Neut % (Auto) 61.2 % Lymph % (Auto) 29.0 % [place] % (Auto) 4.6 % Eos % (Auto) 4.3 % Baso % (Auto) 0.7 % Immature Gran # (Auto) 0.01 (0.00-0.02) K/uL Neut # (Auto) 3.60 (1.4-6.5) K/uL Lymph # (Auto) 1.70 (1.2-3.4) K/uL [place] # (Auto) 0.27 (0.11-0.59) K/uL Eos # (Auto) 0.25 (0-0.5) K/uL Baso # (Auto) 0.04 (0-0.2) K/uL PT 10.9 (9.0-12.0) Seconds INR 1.0 (0.9-1.1) APTT 25.6 (21.0-31.0) Seconds PTT Ratio 0.9 Sodium (136-145) mmol/L Potassium (3.5-5.1) mmol/L Chloride (98-107) mmol/L Carbon Dioxide (21-32) mmol/L Anion Gap (3-11) BUN (7-18) mg/dl Creatinine (0.6-1.4) mg/dl Est Cr Clr Drug Dosing ml/min Est GFR ( Amer) Est GFR (Non-Af Amer) BUN/Creatinine Ratio (10-20) Glucose (70-99) mg/dl Calcium (8.5-10.1) mg/dl Total Bilirubin (0.2-1) mg/dl AST (15-37) U/L ALT (12-78) U/L Alkaline Phosphatase (45-117) U/L Troponin I (0-0.045) ng/ml Total Protein (6.4-8.2) gm/dl Albumin (3.4-5.0) gm/dl Globulin (2.5-4.0) gm/dl Albumin/Globulin Ratio (0.9-2) Lipase (73-393) U/L Urine Color Yellow Urine Appearance Clear (Clear) Urine pH 5.0 (4.5-7.5) Ur Specific [place] 1.007 (1.000-1.030) Urine Protein Negative (Negative) Urine Glucose (UA) 1+ H (Negative) Urine Ketones Negative (Negative) Urine Blood Negative (Negative) Urine Nitrite Negative (Negative) Urine Bilirubin Negative (Negative) Urine Urobilinogen Negative (Negative) Ur Leukocyte Esterase Negative (Negative) Ethyl Alcohol mg/dL (0-3) mg/dl 01/01/20 01/01/20 Range/Units 22:28 22:28 WBC (4.8-10.8) K/uL RBC (4.7-6.1) M/uL Hgb (14.0-18.0) g/dL Hct (42-52) % MCV (80-100) fL MCH (25-34) pg MCHC (32-36) g/dL RDW Std Deviation (36.4-46.3) fL RDW Coeff of Gucci (11.5-14.5) % Plt Count (130-400) K/uL MPV (7.4-10.4) fL Immature Gran % (Auto) % Neut % (Auto) % Lymph % (Auto) % [place] % (Auto) % Eos % (Auto) % Baso % (Auto) % Immature Gran # (Auto) (0.00-0.02) K/uL Neut # (Auto) (1.4-6.5) K/uL Lymph # (Auto) (1.2-3.4) K/uL [place] # (Auto) (0.11-0.59) K/uL Eos # (Auto) (0-0.5) K/uL Baso # (Auto) (0-0.2) K/uL PT (9.0-12.0) Seconds INR (0.9-1.1) APTT (21.0-31.0) Seconds PTT Ratio Sodium 137 (136-145) mmol/L Potassium 3.8 (3.5-5.1) mmol/L Chloride 104 (98-107) mmol/L Carbon Dioxide 27 (21-32) mmol/L Anion Gap 6.0 (3-11) BUN 5 L (7-18) mg/dl Creatinine 0.92 (0.6-1.4) mg/dl Est Cr Clr Drug Dosing 123.5 ml/min Est GFR ( Amer) 115.2 Est GFR (Non-Af Amer) 99.4 BUN/Creatinine Ratio 5.8 L (10-20) Glucose 176 H (70-99) mg/dl Calcium 9.8 (8.5-10.1) mg/dl Total Bilirubin 0.6 (0.2-1) mg/dl AST 28 (15-37) U/L ALT 53 (12-78) U/L Alkaline Phosphatase 101 (45-117) U/L Troponin I < 0.015 (0-0.045) ng/ml Total Protein 8.3 H (6.4-8.2) gm/dl Albumin 3.7 (3.4-5.0) gm/dl Globulin 4.6 H (2.5-4.0) gm/dl Albumin/Globulin Ratio 0.8 L (0.9-2) Lipase 61 L (73-393) U/L Urine Color Urine Appearance (Clear) Urine pH (4.5-7.5) Ur Specific [place] (1.000-1.030) Urine Protein (Negative) Urine Glucose (UA) (Negative) Urine Ketones (Negative) Urine Blood (Negative) Urine Nitrite (Negative) Urine Bilirubin (Negative) Urine Urobilinogen (Negative) Ur Leukocyte Esterase (Negative) Ethyl Alcohol mg/dL 252.0 H (0-3) mg/dl Imaging Data Attestation: I personally reviewed and interpreted this imaging study as foll ows: Radiologist's Impression: ADDENDUM - Added by Tobi Trujillo M.D. on 01/02/2020 12:12 AM (-07:00) Additional clinical history provided of appendectomy. Previously described enlarged appendix actually represents an appendiceal stump and is of no clinical significance. CT ABDOMEN & PELVIS With Contrast: The appendix is enlarged measuring 10 mm in diameter (series 2, image 59). There are no periappendiceal inflammatory changes. Findings are favored to represent anatomic variant rather than acute appendicitis. Clinical correlation is recommended. Cholecystectomy. No biliary dilatation. Liver, spleen, pancreas, adrenal glands are unremarkable. Symmetric renal enhancement. No hydronephrosis. No bowel obstruction or inflammation. Scattered colonic diverticula without acute diverticulitis. Normal urinary bladder and prostate. No free fluid or free air. No acute osseous findings. Posterior decompression, posterior hardware fixation, and interbody fusion of the spine from L4-S1. Radiologist: Tobi Trujillo M.D. Blood Pressure Blood Pressure Findings: Elevated blood pressure Blood Pressure Disposition: elevated BP felt to be situational MDM Narrative The patient is a 44-year-old male who presents today complaining of abdominal pain. Patient is an alcoholic and does have a history of pancreatitis. He continues to drink alcohol. Patient was seen here recently and reports he was encouraged to stay, but chose to go home. His labs today are unremarkable, with no t leukocytosis, anemia or concerning electrolyte abnormalities. His lipase is within normal limits. Troponin is not elevated. Glucose is elevated at 176. LFTs all within normal limits. A CT scan was performed and showed no evidence of pancreatitis or other acute findings. Patient treated with IV Toradol, fentanyl, GI cocktail and on reassessment was still laying in the position. There is a high suspicion for drug-seeking behavior, as patient does often ask specifically for narcotics. Patient was offered admission/observation for intractable abdominal pain versus discharge home and follow-up and does not feel that he can go home at this time. He was given IV Tylenol and case was discussed with the [facility] hospitalist, who will evaluate the patient. Impression & Plan Intractable abdominal pain, Alcohol abuse, Vomiting Discharge Plan Visit Data *Final* Discharge Date/Time: 01/02/20 01:28 Chief Complaint: Abdominal Pain Stated Complaint: DOC REF TO COME BACK-STILL HAVING STOMACH ISSUES ED Provider: Kareem Mchugh ED Midlevel Provider: Sana Gray Discharge Problem: Intractable abdominal pain, Alcohol abuse, Vomiting Patient Disposition: Admitted As Inpatient Discharge Instructions Interventions: ED Discharge Assessment Last Done: 01/02/20 01:28 Discharge Problem: Vomiting Qualifiers: Vomiting type: unspecified Vomiting Intractability: non-intractable Nausea presence: with nausea Qualified Code(s): R11.2 - Nausea with vomiting, unspecified
[2020-01-02] MEDS: INSULIN ASPART 100 UNITS/ML 3 ML PEN SC SCH ×3 (05:59→18:05)
[2020-01-02 06:58] LABS: Basophils # (auto) 0.06 K/uL (0-0.2); Basophils % (auto) 1.4 %; Eosinophils # (auto) 0.32 K/uL (0-0.5); Eosinophils % (auto) 7.5 %; Hematocrit (blood only) 43.2 % (42-52); Hemoglobin 15.4 g/dL (14.0-18.0); Lymphocytes # (auto) 1.89 K/uL (1.2-3.4); Lymphocytes % (auto) 44.1 %; Mean Corpuscular Hemoglobin 33.4 pg (25-34); Mean Corpuscular Hgb Conc 35.6 g/dL (32-36); Mean Corpuscular Volume 93.7 fL (80-100); Mean Platelet Volume 9.2 fL (7.4-10.4); Monocytes # (auto) 0.29 K/uL (0.11-0.59); Monocytes % (auto) 6.8 %; Neutrophils # (auto) 1.73 K/uL (1.4-6.5); Neutrophils % (auto) 40.2 %; Platelet Count 229 K/uL (130-400); RDW Coefficient of Variation 12.5 % (11.5-14.5); RDW Standard Deviation 41.9 fL (36.4-46.3); Red Blood Count 4.61 M/uL (4.7-6.1); White Blood Count 4.29 K/uL (4.8-10.8)
[2020-01-02 07:30] LABS: BUN Creatinine Ratio 6.2 (10-20); Calcium 8.6 mg/dl (8.5-10.1); Creatinine Clr Calc Pharmacy 144.5 ml/min; Est GFR (African American) 125.5; Est GFR (Non-African American) 108.3; Potassium 3.7 mmol/L (3.5-5.1)
[2020-01-02] MEDS ORDERED: INSULIN ASPART 100 UNITS/ML 3 ML PEN SC SCH (07:30)
[2020-01-02] MEDS: GABAPENTIN 600 MG TAB PO SCH ×3 (07:48→21:10)
[2020-01-02] MEDS: PARoxetine HCL 20 MG TAB PO SCH (07:51)
[2020-01-02] MEDS: FOLIC ACID 1 MG TAB PO SCH (07:51)
[2020-01-02] MEDS: THIAMINE HCL 100 MG TAB PO SCH (07:51)
--- NOTE | 2020-01-02 07:54 | CT Scan Report ---
CT abd pelvis IV con only CT DOSE: 755.72 mGy.cm HISTORY: Pain. Nausea. ruq pain, vomiting TECHNIQUE: Multiaxial CT images of the abdomen and pelvis were performed following the use of intrave nous contrast. A dose lowering technique was utilized adhering to the principles of ALARA. COMPARISON STUDY: 12/17/2019 FINDINGS: Lung bases are clear. Liver spleen and pancreas appear unremarkable. Infiltrative change of the peripancreatic region is no longer identified. Prior cholecystectomy. Prior appendectomy. Kidneys are negative for hydronephrosis. There is a moderate residual appendiceal stump measuring 1 c m in overall diameter. No significant periappendiceal infiltrative change is present. Bladder is midline. No significant free fluid within the cul-de-sac. Stable postoperative changes of the lumbar spine consistent with laminectomy and fusion. IMPRESSION: 1. No acute process in the abdomen or pelvis. 2. Prior cholecystectomy and partial appendectomy. ACT 112: Negative or not required by law. The above report was generated using voice recognition software. It may contain grammatical, syntax or spelling errors. Electronically signed by: Radu Fischer M.D. 01/02/2020 7:53 AM
[2020-01-02 08:36] LABS: Estimated Average Glucose 217 mg/dl; Hemoglobin A1C 9.2 % (4.5-5.6)
[2020-01-02] MEDS ORDERED: PANTOprazole 40 MG in SYRINGE 0 ML IV SCH (09:00)
--- NOTE | 2020-01-02 10:38 | Gastrointestinal Consultation ---
Date of Consultation January 02, 2020 Assessment & Plan (1) Abdominal pain: (2) Alcohol abuse: Pt is a 44 y/o male w acute on chronic abd pain symptoms. Hx of ongoing ETOH abuse, pancreatitis, hx of narcotic abuse, intoxicated on admission. CT abd/pelvis w IV w/o signs of acute abnormalities, labs and VS currently stable w/o signs of recurrent pancreatitis. Suspect likely chronic pain related to gastritis or chronic pancreatitis. - Continue Protonix 40mg PO BID; add Carafate 1g QID - IVF support - Advance diet as tolerated - Symptomatic management with antiemetics and analgesics prn - Avoid NSAIDs - If diarrhea recurrent, check stool studies to r/o infection and add fecal fat - Strict ETOH cessation advised, consider ETOH rehab - Upon DC will schedule EUS eval (previously tried to schedule for prior pancreatitis but pt not able to be contacted) - GI to sign off; recall prn Supervising Physician Co-Signing Physician Notes I have seen and examined the patient with SHAWN Bautista whose note reflects our findings and plan. Patient with chronic ETOH and abd pain. No changes. Feeling better this AM. Continue current meds. Abd benign. Please call with questions. History of Present Illness Reason for Consultation: Abdominal pain Requesting Physician: Dr. Samantha Davis Attending Physician: Dr. Margaret Banegas History of Present Illness Pt is a 44 y/o male w PMHx of ADHD history significant for ADHD, mood disorder, poorly controlled diabetes, GERD, recurrent pancreatitis, recurrent admissions for alcohol abuse and pancreatitis, history of PE as per records, history of c hronic pain, narcotic abuse as per records who presented yesterday w c/o abd pain. He was just discharged on 12/24/2019 w abd pain symptoms. Seen by our GI team during last admission, suspected abd pain is related to chronic pancreatitis and ongoing ETOH abuse. Pt reports epigastric pain that is pressure, crampy like. He has N/V yesterday but denies any coffee ground emesis or hematemesis. Stools started to get loose 2 days ago but no dark tarry stools or rectal bleeding. Labs, VS reviewed - no signs of fevers, leukocytosis or electrolyte abnormalities. Renal and Liver functions, Lipase normal. CT abd/pelvis w IV contrast unremarkable. ETOH level on admission >200. He continues to drink 7 beers a day. Prior hx of ETOH rehab 2 yrs ago. He chews tobacco, denies illicit drugs including marjiuana. He denies NSAIDs. Last EGD done 09/2018 showed signs of gastritis and erythema in duodenum. Allergies Allergy/AdvReac Type Severity Reaction Status Date / Time No Known Allergies Allergy Verified 01/01/20 21:47 Home Medications Home Medications Medication Instructions Recorded Confirmed Type folic acid 1 mg PO QAM 30 Days #30 tab 12/20/19 01/01/20 Rx oxycodone 5 mg PO Q8 PRN #10 tab 12/20/19 01/01/20 Rx pantoprazole 40 mg PO DAILY 12/20/19 01/01/20 History paroxetine HCl 20 mg PO DAILY 12/20/19 01/01/20 History thiamine HCl (vitamin B1) [Vitamin 100 mg PO QAM 30 Days #30 tab 12/20/19 01/01/20 Rx B-1] Lantus Solostar U-100 Insulin 10 unit SUBCUT HS 12/23/19 01/02/20 History gabapentin 300 mg PO HS 12/30/19 01/01/20 History Patient History Medical History Abdominal pain Acute hyperglycemia (Acute) Alcohol abuse (Chronic Unknown) Alcohol abuse (Acute) Renae's esophagus (Chronic Unknown) "per EGD 11/23/09 " On 05/31/11 09:06 Martinez Jose wrote "per EGD 11/23/09 " Chest pain Depression (Chronic) Depression (Chronic) DM type 2 (diabetes mellitus, type 2) (Chronic) Encounter for alcohol abuse counseling and surveillance (Acute) Encounter for pre-operative examination Encounter for tobacco use cessation counseling (Acute) H/O acute pancreatitis (Chronic) "recurrent" History of substance abuse (Chronic) Hyperglycemia (Acute) Intentional drug overdose (Resolved) Lumbar degenerative disc disease (Chronic) Mood disorder (Chronic) Mood disorder (Chronic) Neuropathy (Acute) Pancreatitis (Acute) Panic disorder (Chronic) Pulmonary embolism (Resolved) Suicidal ideation (Chronic) Suicidal ideation (Resolved) Suicide attempt (Resolved) Surgical History H/O esophagogastroduodenoscopy (Chronic) "EGD 11/23/2009- mild gastritis, suspicious for gastroparesis, Z-line irregular EUS 02/04/2010- mild chronic pancreatitis, pronounced cholesterolosis of gallbladder, no biliary dilation or stones, probable gastroparesis EGD 10/31/2014- gastritis" S/P lumbar fusion (Resolved) L4-S1 2014 Family History Father Alcohol abuse Social History Preferred Language: Uzbek Communication Ability: Effective Vulcanizer Rubber Plate Required: No Beliefs That Will Affect Care: None Current Living Situation: Parent Current Living Situation Comment: with mother Feels Safe at Home: Yes Smoking Status: Never smoker Tobacco Type: smokeless tobacco ; Do You Dip or Chew Tobacco: No ; Second Hand Exposure: Yes ; Hx Alcohol Use: Yes Alcohol type: beer Hx Substance Use: No Review of Systems Review of Systems: All systems reviewed & are unremarkable except as noted in HPI & below Physical Exam Constitutional: WD/WN, vitals as above well groomed, cooperative and comfortable Eyes: PERRL, conjunctivae normal, anicteric sclerae ENMT: external ear and nose normal, oropharynx normal Respiratory: normal respiratory effort, lungs clear to auscultation Cardiovascular: RRR, no murmur, no edema Gastrointestinal (Abdomen): Inspection/Auscultation: + hypoactive bowel sounds Percussion/Palpation: + abdomen tender (epigastric ) and abdomen soft Skin: no rashes, warm and dry no jaundice Psychiatric: A+Ox3, euthymic affect Lymphatic: no lymphedema Results & Data ([facility]) Vital Signs (Past 12 Hours) Vital Signs Temp Pulse Pulse Resp BP BP BP 01/02/20 07:31 36.4 C L 75 16 110/66 01/02/20 01:40 36.5 C 72 18 147/90 H 01/02/20 01:00 88 18 115/76 01/02/20 00:34 96 H 16 116/69 01/01/20 22:44 99 H 14 126/84 Pulse Ox 01/02/20 07:31 96 01/02/20 01:40 97 01/02/20 01:00 96 01/02/20 00:34 95 01/01/20 22:44 98 (1) Abdominal pain Abdominal location: generalized Qualified Code(s): R10.84 - Generalized abdominal pain
[2020-01-02] MEDS ORDERED: DICYCLOMINE HCL 20 MG TAB PO PRN (11:20)
[2020-01-02] MEDS: SUCRALFATE 1 GM TAB PO SCH ×3 (12:09→19:56)
[2020-01-02] MEDS ORDERED: KETOROLAC 30 MG/ML VIAL IV ONE ×2 (14:34→23:40)
--- NOTE | 2020-01-02 15:50 | Hospitalist Progress Note ---
Date of Service January 02, 2020 Assessment & Plan (1) Intractable abdominal pain: Has history of recurrent abdominal pain He was admitted this time with another episode of epigastric/abdominal pain associated with nausea and vomiting CT scan of the abdomen and pelvis did not show any significant finding Has history of GERD He was evaluated by desilverizer and recommended medical management without any EGD for now Complains of abdominal discomfort with nausea Continue current medications and not to give any narcotics analgesics Will try Toradol for abdominal pain now Clears started and with advance as tolerated Likely discharge tomorrow (2) Gastroesophageal reflux disease: Continue PPI (3) Alcohol abuse: Has long history of alcohol abuse Previous failure of inpatient and outpatient rehab Alcohol level is elevated more than 200 without any evidence of withdrawal symptoms Advised to quit drinking (4) DM type 2 (diabetes mellitus, type 2): Continue with SSI (5) Depression: We will continue current medication No acute delirium DVT prophylaxis SCDs for now Likely discharge tomorrow Admission and Anticipated Discharge Date Admission Date: January 02, 2020 Subjective The patient was seen and examined in medical floor He is a known alcoholic with recurrent admissions with alcohol related symptoms Admitted with abdominal pain and nausea with vomiting Has been feeling better but is still nauseous Complains of nonspecific abdominal pain Review of Systems Review of Systems: All systems reviewed and are unremarkable except as noted below Gastrointestinal: + abdominal pain and + nausea; no vomiting Physical Exam Physical Exam: Lying in bed comfortably Constitutional: well developed, well nourished, + acute distress (Minimal due to abdominal distress) and + obese; not ill appearing Eyes: PERRL, conjunctivae normal, anicteric sclerae ENMT: external ear and nose normal, oropharynx normal Neck: trachea midline, no thyromegaly Respiratory: no respiratory distress Auscultation: lungs clear to auscultation bilaterally Cardiovascular: Rate/Rhythm: regular rate and regular rhythm Heart Sounds: no murmur Gastrointestinal (Abdomen): Inspection/Auscultation: abdomen normal to inspection; abdomen not distended Percussion/Palpation: abdomen soft; abdomen nontender Musculoskeletal: No acute arthritis involving any joints Neurologic: moves all extremities; no focal motor deficits No tremors on outstretched hands Lymphatic: no cervical or axillary lymphadenopathy Results & Data Results & Data ([facility]) Vital Signs (Past 12 Hours) Vital Signs Temp Pulse Resp BP Pulse Ox 01/02/20 15:35 36.8 C 88 18 127/75 99 05/28/20 07:31 36.4 C L 75 16 110/66 96 Laboratory Results Short CBC 01/01/20 01/02/20 Range/Units 22:28 06:42 WBC 5.87 4.29 L (4.8-10.8) K/uL Hgb 16.5 15.4 (14.0-18.0) g/dL Hct 45.4 43.2 (42-52) % Plt Count 264 229 (130-400) K/uL BMP 01/01/20 01/02/20 22:28 06:42 Sodium 137 140 Potassium 3.8 3.7 Chloride 104 109 H Carbon Dioxide 27 24 BUN 5 L 5 L Creatinine 0.92 0.78 Glucose 176 H 131 H Calcium 9.8 8.6 Cardiac Enzymes 01/01/20 Range/Units 22:28 Troponin I < 0.015 (0-0.045) ng/ml Liver Function 01/01/20 Range/Units 22:28 Total Bilirubin 0.6 (0.2-1) mg/dl AST 28 (15-37) U/L ALT 53 (12-78) U/L Alkaline Phosphatase 101 (45-117) U/L Albumin 3.7 (3.4-5.0) gm/dl Urine 01/01/20 Range/Units 21:40 Urine Color Yellow Urine Appearance Clear (Clear) Urine pH 5.0 (4.5-7.5) Ur Specific [place] 1.007 (1.000-1.030) Urine Protein Negative (Negative) Urine Glucose (UA) 1+ H (Negative) Medications Administered Current Inpatient Medications Dextrose (Dextrose 50%) 25 - 50 ml IV UD PRN; Protocol PRN Reason: Hypoglycemia Protocol Stop: 02/01/20 01:59 Dicyclomine HCl (Bentyl) 20 mg PO Q6H PRN PRN Reason: Moderate Pain Stop: 02/01/20 11:29 Last Admin: 01/02/20 12:09 Dose: 20 mg Documented by: Folic Acid (Folvite) 1 mg PO QAM [facility] Stop: 02/01/20 08:59 Last Admin: 01/02/20 07:51 Dose: 1 mg Documented by: Gabapentin (Neurontin) 600 mg PO Q8H [facility] Stop: 01/03/20 14:01 Gabapentin (Neurontin) 600 mg PO Q12H [facility] Stop: 01/04/20 14:01 Gabapentin (Neurontin) 600 mg PO Q24H [facility] Stop: 01/05/20 14:01 Glucagon (Glucagen) 1 mg SQ UD PRN; Protocol PRN Reason: Hypoglycemia Protocol Stop: 02/01/20 01:59 Glucose (Glucose 40%) 15 - 30 gm PO UD PRN; Protocol PRN Reason: Hypoglycemia Protocol Stop: 02/01/20 01:59 Glucose (Dex4 Glucose) 4 - 8 tabs PO UD PRN; Protocol PRN Reason: Hypoglycemia Protocol Stop: 02/01/20 01:59 Lorazepam (Ativan) 1 mg in 2 mls @ 2 mls/min IV UD PRN; Protocol PRN Reason: EtOH Withdrawl AWSS Score 6,7 Stop: 02/01/20 01:41 Lorazepam (Ativan) 2 mg in 4 mls @ 4 mls/min IV UD PRN; Protocol PRN Reason: EtOH Withdrawl AWSS Score 8,9 Stop: 02/01/20 01:41 Lorazepam (Ativan) 3 mg in 6 mls @ 4 mls/min IV ONCE PRN; Protocol PRN Reason: EtOH Withdrawl AWSS Score >=10 Stop: 02/01/20 01:41 Acetaminophen (Ofirmev) 1,000 mg in 100 mls @ 400 mls/hr IV Q8H PRN PRN Reason: Pain or Fever Stop: 01/05/20 01:59 Sodium Chloride (Nss 1000ml) 1,000 mls @ 150 mls/hr IV .Q6H40M [facility] Stop: 02/01/20 03:29 Last Admin: 01/02/20 11:16 Dose: 150 mls/hr Documented by: Insulin Aspart (Novolog Flexpen) 0 units SC Q6 [facility] Stop: 02/01/20 05:59 Last Admin: 01/02/20 12:16 Dose: Not Given Documented by: Insulin Glargine (Lantus Solostar Pen) 5 units SQ HS [facility] Stop: 02/01/20 20:59 Miscellaneous (Carbohydrates For Hypoglycemia) 15 - 30 gm PO UD PRN PRN Reason: Hypoglycemia Treatment Stop: 02/01/20 01:59 Ondansetron HCl (Zofran) 4 mg IV Q6H PRN PRN Reason: Nausea Stop: 02/01/20 01:41 Last Admin: 01/02/20 02:30 Dose: 4 mg Documented by: Pantoprazole Sodium (Protonix) 40 mg PO BID [facility] Stop: 02/01/20 20:59 Paroxetine HCl (Paxil) 20 mg PO DAILY [facility] Stop: 02/01/20 08:59 Last Admin: 01/02/20 07:51 Dose: 20 mg Documented by: Sucralfate (Carafate Tab) 1 gm PO ACHS [facility] Stop: 02/01/20 11:29 Last Admin: 01/02/20 15:38 Dose: 1 gm Documented by: Thiamine HCl (Vitamin B-1) 100 mg PO QAM [facility] Stop: 02/01/20 08:59 Last Admin: 01/02/20 07:51 Dose: 100 mg Documented by: (1) Gastroesophageal reflux disease Esophagitis presence: esophagitis presence not specified Qualified Code(s): K21.9 - Gastro-esophageal reflux disease without esophagitis
[2020-01-02] MEDS ORDERED: HYDROmorphone INJ 1 MG/ML SYRINGE IV STA (18:13)
[2020-01-02] MEDS ORDERED: HYDROmorphone INJ 0.5 MG/0.5 ML SYR IV STA (18:14)
[2020-01-02] MEDS: PANTOprazole 40 MG TAB PO SCH (19:56)
[2020-01-02] MEDS ORDERED: INSULIN GLARGINE SOLOSTAR 100 UNITS/ML 3 ML PEN SQ SCH (21:00)
--- NOTE | 2020-01-02 22:22 | Electrocardiogram Report ---
Test Reason : Blood Pressure : / mmHG Vent. Rate : 097 BPM Atrial Rate : 097 BPM P-R Int : 130 ms QRS Dur : 078 ms QT Int : 352 ms P-R-T Axes : 063 030 037 degrees QTc Int : 447 ms Normal sinus rhythm Normal ECG When compared with ECG of 30-DEC-2019 23:14, No significant change was found Confirmed by Antoni Meek ([id number]) on 01/02/2020 10:22:04 PM Referred By: REFERRED SELF Confirmed By:Antoni Meek
[2020-01-03 00:03] VITALS: O2SAT 97
[2020-01-03] MEDS: SODIUM CHLORIDE 0.9% 1000ML 1,000 ML IV SCH ×2 (00:19→06:34)
[2020-01-03] MEDS: INSULIN ASPART 100 UNITS/ML 3 ML PEN SC SCH ×4 (00:36→12:51)
[2020-01-03] MEDS ORDERED: Nursing to Pharmacy Communication ONE (06:25)
[2020-01-03] MEDS: GABAPENTIN 600 MG TAB PO SCH (06:33)
[2020-01-03 07:30] VITALS: BP 107/66; PULSE 79; TEMP 97.5
[2020-01-03 07:34] LABS: BUN Creatinine Ratio 8.3 (10-20); Calcium 8.6 mg/dl (8.5-10.1); Creatinine Clr Calc Pharmacy 173.4 ml/min; Est GFR (African American) 135.2; Est GFR (Non-African American) 116.7; Potassium 3.4 mmol/L (3.5-5.1)
[2020-01-03] MEDS: PARoxetine HCL 20 MG TAB PO SCH (07:59)
[2020-01-03] MEDS: SUCRALFATE 1 GM TAB PO SCH ×2 (07:59→12:17)
[2020-01-03] MEDS: PANTOprazole 40 MG TAB PO SCH (07:59)
[2020-01-03] MEDS: THIAMINE HCL 100 MG TAB PO SCH (07:59)
[2020-01-03] MEDS: FOLIC ACID 1 MG TAB PO SCH (07:59)
[2020-01-03] MEDS ORDERED: POTASSIUM CHLORIDE 20 MEQ TABCR PO STA (08:25)
--- NOTE | 2020-01-03 11:52 | Hospitalist Progress Note ---
Date of Service January 03, 2020 Assessment & Plan (1) Intractable abdominal pain: Has history of recurrent abdominal pain He was admitted this time with another episode of epigastric/abdominal pain associated with nausea and vomiting CT scan of the abdomen and pelvis did not show any significant finding Has history of GERD He was evaluated by sourcing intern and recommended medical management without any EGD for now Complains of abdominal discomfort with nausea Continue current medications and not to give any narcotics analgesics Will try Toradol for abdominal pain now Clears started and with advance as tolerated Diet advanced as tolerated Likely discharge this afternoon (2) Gastroesophageal reflux disease: Continue PPI (3) Alcohol abuse: Has long history of alcohol abuse Previous failure of inpatient and outpatient rehab Alcohol level is elevated more than 200 without any evidence of withdrawal symptoms Advised to quit drinking again today (4) DM type 2 (diabetes mellitus, type 2): Continue with SSI (5) Depression: We will continue current medication No acute delirium DVT prophylaxis SCDs for now Likely discharge this afternoon Admission and Anticipated Discharge Date Admission Date: January 02, 2020 Subjective The patient was seen and examined in medical floor He is a known alcoholic with recurrent admissions with alcohol related symptoms Admitted with abdominal pain and nausea with vomiting Has been feeling better but is still nauseous Complains of nonspecific abdominal pain 01/03/2020 The patient was seen and examined in medical floor He has been feeling a lot better and denies any abdominal pain and/or nausea or vomiting His diet will be advanced as tolerated and likely be discharged this afternoon Review of Systems Review of Systems: All systems reviewed and are unremarkable except as noted below Gastrointestinal: no abdominal pain, no nausea and no vomiting Physical Exam Physical Exam: Lying in bed comfortably Constitutional: well developed, well nourished, + acute distress (Minimal due to abdominal distress) and + obese; not ill appearing Eyes: PERRL, conjunctivae normal, anicteric sclerae ENMT: external ear and nose normal, oropharynx normal Neck: trachea midline, no thyromegaly Respiratory: no respiratory distress Auscultation: lungs clear to aus cultation bilaterally Cardiovascular: Rate/Rhythm: regular rate and regular rhythm Heart Sounds: no murmur Gastrointestinal (Abdomen): Inspection/Auscultation: abdomen normal to inspection; abdomen not distended Percussion/Palpation: abdomen soft; abdomen nontender Musculoskeletal: No acute arthritis involving any joints Neurologic: moves all extremities; no focal motor deficits No tremors involving the outstretched hands Lymphatic: no cervical or axillary lymphadenopathy Results & Data Results & Data ([facility]) Vital Signs (Past 12 Hours) Vital Signs Temp Pulse Pulse Resp BP BP Pulse Ox 01/03/20 07:29 36.4 C L 79 18 107/66 97 01/03/20 02:27 37.0 C 84 18 121/75 97 01/03/20 00:01 36.9 C 79 20 129/81 97 Laboratory Results BMP 01/03/20 06:37 Sodium 137 Potassium 3.4 L Chloride 109 H Carbon Dioxide 21 BUN 5 L Creatinine 0.65 Glucose 103 H Calcium 8.6 Medications Administered Current Inpatient Medications Dextrose (Dextrose 50%) 25 - 50 ml IV UD PRN; Protocol PRN Reason: Hypoglycemia Protocol Stop: 02/01/20 01:59 Dicyclomine HCl (Bentyl) 20 mg PO Q6H PRN PRN Reason: Moderate Pain Stop: 02/01/20 11:29 Last Admin: 01/02/20 12:09 Dose: 20 mg Documented by: Folic Acid (Folvite) 1 mg PO QAM [facility] Stop: 02/01/20 08:59 Last Admin: 01/03/20 07:59 Dose: 1 mg Documented by: Gabapentin (Neurontin) 600 mg PO Q8H [facility] Stop: 01/03/20 14:01 Last Admin: 01/03/20 06:33 Dose: 600 mg Documented by: Gabapentin (Neurontin) 600 mg PO Q12H [facility] Stop: 01/04/20 14:01 Gabapentin (Neurontin) 600 mg PO Q24H [facility] Stop: 01/05/20 14:01 Glucagon (Glucagen) 1 mg SQ UD PRN; Protocol PRN Reason: Hypoglycemia Protocol Stop: 02/01/20 01:59 Glucose (Glucose 40%) 15 - 30 gm PO UD PRN; Protocol PRN Reason: Hypoglycemia Protocol Stop: 02/01/20 01:59 Glucose (Dex4 Glucose) 4 - 8 tabs PO UD PRN; Protocol PRN Reason: Hypoglycemia Protocol Stop: 02/01/20 01:59 Lorazepam (Ativan) 1 mg in 2 mls @ 2 mls/min IV UD PRN; Protocol PRN Reason: EtOH Withdrawl AWSS Score 6,7 Stop: 02/01/20 01:41 Last Admin: 01/02/20 19:02 Dose: 2 mls/min Documented by: Lorazepam (Ativan) 2 mg in 4 mls @ 4 mls/min IV UD PRN; Protocol PRN Reason: EtOH Withdrawl AWSS Score 8,9 Stop: 02/01/20 01:41 Lorazepam (Ativan) 3 mg in 6 mls @ 4 mls/min IV ONCE PRN; Protocol PRN Reason: EtOH Withdrawl AWSS Score >=10 Stop: 02/01/20 01:41 Acetaminophen (Ofirmev) 1,000 mg in 100 mls @ 400 mls/hr IV Q8H PRN PRN Reason: Pain or Fever Stop: 01/05/20 01:59 Sodium Chloride (Nss 1000ml) 1,000 mls @ 150 mls/hr IV .Q6H40M [facility] Stop: 02/01/20 03:29 Last Admin: 01/03/20 06:34 Dose: 150 mls/hr Documented by: Insulin Aspart (Novolog Flexpen) 0 units SC ACHS [facility] Stop: 02/01/20 05:59 Last Admin: 01/03/20 08:36 Dose: Not Given Documented by: Insulin Glargine (Lantus Solostar Pen) 5 units SQ HS [facility] Stop: 02/01/20 20:59 Last Admin: 01/02/20 21:09 Dose: 5 units Documented by: Miscellaneous (Carbohydrates For Hypoglycemia) 15 - 30 gm PO UD PRN PRN Reason: Hypoglycemia Treatment Stop: 02/01/20 01:59 Ondansetron HCl (Zofran) 4 mg IV Q6H PRN PRN Reason: Nausea Stop: 02/01/20 01:41 Last Admin: 01/02/20 19:54 Dose: 4 mg Documented by: Pantoprazole Sodium (Protonix) 40 mg PO BID [facility] Stop: 02/01/20 20:59 Last Admin: 01/03/20 07:59 Dose: 40 mg Documented by: Paroxetine HCl (Paxil) 20 mg PO DAILY [facility] Stop: 02/01/20 08:59 Last Admin: 01/03/20 07:59 Dose: 20 mg Documented by: Sucralfate (Carafate Tab) 1 gm PO ACHS [facility] Stop: 02/01/20 11:29 Last Admin: 01/03/20 07:59 Dose: 1 gm Documented by: Thiamine HCl (Vitamin B-1) 100 mg PO QAM [facility] Stop: 02/01/20 08:59 Last Admin: 01/03/20 07:59 Dose: 100 mg Documented by: (1) Gastroesophageal reflux disease Esophagitis presence: esophagitis presence not specified Qualified Code(s): K21.9 - Gastro-esophageal reflux disease without esophagitis
[2020-01-04] MEDS ORDERED: GABAPENTIN 600 MG TAB PO SCH (02:00)
--- NOTE | 2020-01-04 09:21 | Discharge Summary ---
Date of Service January 04, 2020 Admission HPI Per Admitting Provider DICTATED BY: Jed Sousa MD DATE OF ADMISSION: 01/02/2020 CHIEF COMPLAINT: Abdominal pain. HISTORY OF PRESENT ILLNESS: This is a 44-year-old male with past medical history significant for ADHD, mood disorder, poorly controlled diabetes, GERD, recurrent pancreatitis, recurrent admissions for alcohol abuse and pancreatitis, history of PE as per records, history of chronic pain, narcotic abuse as per records. Was recently in the hospital, discharged on 12/24/2019 and again comes back with abdominal pain. This is third admission in this month. The patient says he is still drinking 7 beers of alcohol every day and since yesterday he is having again epigastrium and right upper quadrant abdominal pain radiating to chest and back, severe in nature, several episodes of nausea, vomiting and several episodes of diarrhea, no blood in the vomitus. Denies any other complaints. No fever, no cough, no chest pain. No headache, no dizziness, no blurred vision, no earache, he has some runny nose, no sore throat. Currently, resting comfortable and hemodynamically stable. Admission Exam Per Admitting Provider GENERAL: The patient is of moderate build, not in acute distress. VITAL SIGNS: Temperature 36.5, pulse 88, respiratory rate 18, blood pressure 115/76, oxygen 96% on room air. HEENT: Pupils equal, round, and reactive to light. NECK: No JVD, no neck masses. CARDIOVASCULAR: S1, S2 heard, regular rate and rhythm, no murmur, no gallop. RESPIRATORY SYSTEM: Normal AP diameter. No accessory muscle use. No wheezing, no crackles. ABDOMEN: Soft, bowel sounds present. Tenderness in the epigastrium and right upper quadrant region. Guarding present. No rigidity, no distention. CENTRAL NERVOUS SYSTEM: No distention Cranial nerves II-XII grossly intact. Nonfocal. EXTREMITIES: No edema, no erythema. Principal Diagnosis Intractable abdominal pain with nausea-resolved, possible gastritis, type 2 diabetes, depression, history of alcohol abuse Discharge Exam Constitutional well developed, well nourished, + acute distress (Minimal due to abdominal distress) and + obese; not ill appearing Eyes PERRL, conjunctivae normal, anicteric sclerae ENMT external ear and nose normal, oropharynx normal Neck trachea midline, no thyromegaly Respiratory no respiratory distress Auscultation: lungs clear to auscultation bilaterally Cardiovascular Rate/Rhythm: regular rate and regular rhythm Heart Sounds: no murmur Gastrointestinal (Abdomen) Inspection/Auscultation: abdomen normal to inspection; abdomen not distended Percussion/Palpation: abdomen soft; abdomen nontender Neurologic moves all extremities; no focal motor deficits Lymphatic no cervical or axillary lymphadenopathy Discharge Data Allergies Allergy/AdvReac Type Severity Reaction Status Date / Time No Known Allergies Allergy Verified 01/01/20 21:47 Consultations 01/02/20 01:42 Consult Case Management - Discharge Planning Routine Consult Case Management - Discharge Planning Routine 01/02/20 08:00 Consult Gastroenterology Routine Ordered Studies 01/01/20 22:24 CT abd pelvis IV con only Urgent Hospital Course (1) Intractable abdominal pain: Has history of recurrent abdominal pain He was admitted this time with another episode of epigastric/abdominal pain associated with nausea and vomiting CT scan of the abdomen and pelvis did not show any significant finding Has history of GERD He was evaluated by expansion envelope maker hand and recommended medical management without any EGD for now Complains of abdominal discomfort with nausea Continue current medications and not to give any narcotics analgesics Will try Toradol for abdominal pain now Clears started and with advance as tolerated Diet advanced as tolerated Likely discharge this afternoon (2) Gastroesophageal reflux disease: Continue PPI (3) Alcohol abuse: Has long history of alcohol abuse Previous failure of inpatient and outpatient rehab Alcohol level is elevated more than 200 without any evidence of withdrawal symptoms Advised to quit drinking again today (4) DM type 2 (diabetes mellitus, type 2): Continue with SSI (5) Depression: We will continue current medication No acute delirium DVT prophylaxis SCDs for now Likely discharge this afternoon Total Time Total Time Spent Total Time Spent (In Minutes): 35 minutes Total Time Includes: Examination of the Patient, Discharge Planning, Medication Reconciliation and Communication With Other Providers Discharge Plan Discharge Items Patient Disposition: Home - Self-Care Reason For Visit: ABD PAIN Discharge Diagnosis: Intractable abdominal pain with nausea-resolved, possible gastritis, type 2 diabetes, depression, history of alcohol abuse Condition on Discharge: Good Activity: Resume your previous activity Non-emergency contact: Primary Care Provider Call non-emergency contact if: you have any medication questions and your symptoms worsen Follow-up/Referrals: Dhiraj Myers, [Primary Care Provider] - 01/10/20 11:00 am (01/10/2020 11:00 AM Provider Martinez Brewster III, MD Department General Internal Medicine [facility] ) Diet: Carb Consistent or DM2 Addtl Attending Provider Instructions: Strongly advised to quit drinking alcohol Pending Studies at Discharge: No Stand-Alone Forms: My [facility], Smoking Cessation Medications and DC Order Prescriptions: New gabapentin 600 mg Tablet 600 mg PO UD 2 Days Qty: 3 RF: 0 sucralfate 1 gram Tablet 1 g PO ACHS 30 Days Qty: 120 RF: 0 pantoprazole 40 mg Tablet,Delayed Release (Dr/Ec) 40 mg PO BID 30 Days Qty: 60 RF: 0 Continued thiamine HCl (vitamin B1) [Vitamin B-1] 100 mg Tablet 100 mg PO QAM 30 Days Qty: 30 RF: 0 folic acid 1 mg Tablet 1 mg PO QAM 30 Days Qty: 30 RF: 0 oxycodone 5 mg Tablet 5 mg PO Q8 PRN (Reason: pain) Qty: 10 RF: 0 paroxetine HCl 20 mg tablet 20 mg PO DAILY RF: 0 Lantus Solostar U-100 Insulin 100 unit/mL (3 mL) insulin pen 10 unit SUBCUT HS RF: 0 gabapentin 300 mg capsule 300 mg PO HS RF: 0 Changed pantoprazole 40 mg tablet,delayed release (DR/EC) 40 mg PO BID Qty: 0 RF: 0 Discharge Orders: Discharge Order (Routine); Ordered 01/03/20 Ordered By: Samantha Davis Admission Data Admit Date/Time: 01/02/20 01:04 Attending Provider: Samantha Davis Admit Provider: Jed Sousa Primary Care Provider: Dhiraj Myers Other Providers: Ino Alvares ; Roselyn Peters ; Dami Luo ; Maryjane Panchal ; Homero Mullen ; Deborah Molina ; Sanjay Bass ; Jaymie Hartmann ; Faizan Garsia ; Colton Moreland ; Christina Gill ; Margaret Banegas ; Marika Parrish ; So Prakash ; Camila Gentile Other Interventions: Discharge Summary Assessment (RN) Last Done: 01/03/20 13:50 DC Date/Time DO NOT enter until pt leaves facility: 01/03/20 14:45
[2020-01-05] MEDS ORDERED: GABAPENTIN 600 MG TAB PO SCH (14:00)
== END 2020-01-03 14:45 | disposition home or self-care (01) | DRG 392 ==
LOC: ED 21:03 → 3E 01-02 01:04
DX: R10.84 Generalized abdominal pain; K21.9 Gastro-esophageal reflux disease without esophagitis; F32.9 Major depressive disorder, single episode, unspecified; E11.9 Type 2 diabetes mellitus without complications; F90.9 Attention-deficit hyperactivity disorder, unspecified type; F10.10 Alcohol abuse, uncomplicated; F39 Unspecified mood [affective] disorder

== ENCOUNTER 2020-04-03 11:24 | Inpatient (IN) ==
[2020-04-03] MEDS ORDERED: SODIUM CHLORIDE 0.9% 500 ML IV STA (13:24)
[2020-04-03] MEDS ORDERED: ONDANSETRON INJ 2 MG/ML 2 ML VIAL IV STA ×2 (13:24→14:05)
[2020-04-03 13:57] LABS: Basophils # (auto) 0.01 K/uL (0-0.2); Basophils % (auto) 0.1 %; Eosinophils # (auto) 0.05 K/uL (0-0.5); Eosinophils % (auto) 0.7 %; Hematocrit (blood only) 50.3 % (42-52); Hemoglobin 18.3 g/dL (14.0-18.0); Immature Granulocytes # (auto) 0.01 K/uL (0.00-0.02); Immature Granulocytes % (auto) 0.1 %; Lymphocytes # (auto) 1.27 K/uL (1.2-3.4); Lymphocytes % (auto) 17.9 %; Mean Corpuscular Hemoglobin 33.8 pg (25-34); Mean Corpuscular Hgb Conc 36.4 g/dL (32-36); Mean Platelet Volume 9.9 fL (7.4-10.4); Monocytes # (auto) 0.71 K/uL (0.11-0.59); Neutrophils # (auto) 5.06 K/uL (1.4-6.5); Neutrophils % (auto) 71.2 %; Platelet Count 201 K/uL (130-400); RDW Coefficient of Variation 11.8 % (11.5-14.5); RDW Standard Deviation 39.7 fL (36.4-46.3); Red Blood Count 5.41 M/uL (4.7-6.1); White Blood Count 7.11 K/uL (4.8-10.8)
[2020-04-03] MEDS ORDERED: KETOROLAC TROMETHAMINE 15 MG/ML VIAL IV ONE (14:05)
[2020-04-03] MEDS ORDERED: GI COCKTAIL ED USE PO ONE (14:05)
[2020-04-03] MEDS ORDERED: FOLIC ACID 1 MG in SYRINGE 9.8 ML IV STA (14:10)
[2020-04-03] MEDS ORDERED: THIAMINE HCL 100 MG in SYRINGE 9 ML IV STA (14:10)
--- NOTE | 2020-04-03 14:10 | Emergency Department Note ---
Impression & Plan Pancreatitis, Alcohol abuse, Intractable abdominal pain ED Provider Note NAME: RIKY MELTON AGE: 44 SEX: M : 1975 ARRIVES VIA: Walk-In INFORMANT: Patient ED PROVIDER(S): Geoff Andrade DO CHIEF COMPLAINT: Abdominal pain HPI: Patient is a 44-year-old male who presents the ER for abdominal pain. He admits to being an alcoholic and having a history of chronic pancreatitis since 2009. He notes he has had about 10 episodes of this before. Pain started 1.5 days ago. He stopped drinking 3 days ago. He did vomit 3 times in the past 24 hours. He denies any blood or coffee-ground emesis. No dark tarry stools. Last bowel movement was yesterday. History of appendectomy and cholecystectomy. No other exacerbating or remitting factors. Pain is currently 7 out of 10 periumbilically and radiates through to the back consistent with his previous bouts of pancreatitis. ROS: See above HPI for pertinent positives & negatives. A total of 10 systems reviewed and were otherwise negative. PAST MEDICAL HISTORY:See Below PAST SURGICAL HISTORY:See Below FAMILY HISTORY:See Below SOCIAL HISTORY:See Below HOME MEDICATIONS:See Below ALLERGIES:See Below VITALS:See Below PHYSICAL EXAMINATION: GENERAL: Sitting up in bed, alert, well appearing, well nourished, no distress, non-toxic EYE EXAM: normal conjunctiva. OROPHARYNX: no exudate, no erythema, lips, buccal mucosa, and tongue normal and mucous membranes are moist NECK: supple, no nuchal rigidity, no adenopathy, non-tender LUNGS: Clear to auscultation. Normal chest wall mechanics HEART: no murmurs, S1 normal and S2 normal ABDOMEN: abdomen soft, Normal periumbilical tenderness, normo-active bowel aryan nds, no masses, no rebound or guarding. BACK: Back is symmetrical on inspection and there is no deformity, no midline tenderness, no CVA tenderness. SKIN: no rashes and no bruising UPPER EXTREMITIES: upper extremities are grossly normal. LOWER EXTREMITIES: No pitting edema. NEURO EXAM: Normal sensorium, cranial nerves II-XII grossly intact, normal speech, no gross weakness of arms, no gross weakness of legs. MEDICAL DECISION MAKING: Patient is a 44-year-old male with past medical history of alcohol abuse and chronic pancreatitis who presents the ER for abdominal pain nausea vomiting. IV was established blood work was obtained. Labs show no significant leukocytosis or anemia. BMP with mild hyponatremia. LFTs bilirubin was slightly elevated at 1.6. Lipase was normal. Alcohol was negative. CT abdomen pelvis confirms acute pancreatitis. Patient was given IV fluids, Toradol, GI cocktail and Zofran. He had little improvement. He was given a dose of morphine following the results of the CT showing acute pancreatitis. Discussed case with the hospi talist for observation. Triage Nursing notes reviewed. Prior medical records reviewed Vital Signs: reviewed and remarkable for no significant abnormalities Differential diagnosis: Differential diagnoses includes but is not limited to gastritis, peptic ulcer disease, GERD, gallbladder disease, pancreatitis, small bowel obstruction, acute coronary syndrome, pericarditis, ischemic bowel, irritable bowel disease, irritable bowel syndrome, appendicitis, diverticulitis, malignancy, hernia, urinary tract infection, torsion, perforation, trauma, infectious. ER treatment provided: See below Diagnostics interpreted by me: ECG: none Cardiac Monitoring: An order was placed for continuous cardiac monitoring. The monitor shows a rate of 85 with Sinus rhythm. Laboratory studies: As stated above and show below. Imaging studies: CT abdomen pelvis confirms acute pancreatitis Consultation(s): none ED COURSE: Procedures: none Critical Care: None Past Med/Surg History Medical History (Updated 04/03/20 @ 17:54 by Geoff Andrade DO) Abdominal pain Acute hyperglycemia Alcohol abuse (Unknown) Alcohol abuse Renae's esophagus (Unknown) "per EGD 11/23/09 " On 05/31/11 09:06 Martinez Jose wrote "per EGD 11/23/09 " Chest pain Depression Depression DM type 2 (diabetes mellitus, type 2) Encounter for alcohol abuse counseling and surveillance Encounter for pre-operative examination Encounter for tobacco use cessation counseling H/O acute pancreatitis "recurrent" History of substance abuse Hyperglycemia Intentional drug overdose Lumbar degenerative disc disease Mood disorder Mood disorder Neuropathy Pancreatitis Panic disorder Pulmonary embolism Suicidal ideation Suicidal ideation Suicide attempt Surgical History H/O esophagogastroduodenoscopy "EGD 11/23/2009- mild gastritis, suspicious for gastroparesis, Z-line irregular EUS 02/04/2010- mild chronic pancreatitis, pronounced cholesterolosis of gallbladder, no biliary dilation or stones, probable gastroparesis EGD 10/31/2014- gastritis" S/P lumbar fusion L4-S1 2014 Family History Father Alcohol abuse Social History Smoking Status: Never smoker Tobacco Type: Smokeless Tobacco (Dip or Chew) Second Hand Exposure: Yes; Do You Dip or Chew Tobacco: No; Hx Alcohol Use: Yes Alcohol type: beer Hx Substance Use: No Preferred Language: Citizen Of [place] Communication Ability: Effective Assistant Broker Required: No Beliefs That Will Affect Care: None Current Living Situation: Parent Current Living Situation Comment: with mother Feels Safe at Home: Yes Allergies Allergies Allergy/AdvReac Type Severity Reaction Status Date / Time No Known Allergies Allergy Verified 04/03/20 14:20 Home Meds Home Medications Medication Instructions Recorded Confirmed paroxetine HCl 20 mg PO QAM 12/20/19 04/03/20 pantoprazole 40 mg PO QAM 01/18/20 04/03/20 metformin 2 tab PO DAILY 04/03/20 04/03/20 Results & Data (ED) Vital Signs Vital Signs - 24 hr 04/03/20 11:37 04/03/20 13:42 04/03/20 14:00 Temperature 37 C Temperature Source Oral Pulse Rate 94 H 86 90 Pulse Rate from SpO2 Sensor 87 92 H Pulse Rhythm Regular Pulse Strength Normal Respiratory Rate 20 17 28 H Respiratory Effort / Characteristics Non-Labored Spontaneous Respiratory Depth Normal Respiratory Pattern Regular Blood Pressure 133/93 149/91 H 136/89 Blood Pressure Mean 106 118 97 Blood Pressure Position Sitting Pulse Oximetry 100 98 Oxygen Delivery Method Room Air Room Air Room Air Sepsis Recent Fever Within 48 Hours No Sepsis New/Unexplained Change in Mental Status No Sepsis Action Taken by Nursing No Action Required 04/03/20 14:10 04/03/20 14:20 04/03/20 14:31 Temperature Temperature Source Pulse Rate 65 82 70 Pulse Rate from SpO2 Sensor 65 80 70 Pulse Rhythm Pulse Strength Respiratory Rate 15 21 17 Respiratory Effort / Characteristics Respiratory Depth Respiratory Pattern Blood Pressure Blood Pressure Mean Blood Pressure Position Pulse Oximetry 96 97 97 Oxygen Delivery Method Room Air Room Air Room Air Sepsis Recent Fever Within 48 Hours Sepsis New/Unexplained Change in Mental Status Sepsis Action Taken by Nursing 04/03/20 14:40 04/03/20 14:50 04/03/20 15:00 Temperature Temperature Source Pulse Rate 69 73 72 Pulse Rate from SpO2 Sensor 70 75 74 Pulse Rhythm Pulse Strength Respiratory Rate 15 16 15 Respiratory Effort / Characteristics Respiratory Depth Respiratory Pattern Blood Pressure 126/80 Blood Pressure Mean 96 Blood Pressure Position Pulse Oximetry 95 95 97 Oxygen Delivery Method Room Air Room Air Room Air Sepsis Recent Fever Within 48 Hours Sepsis New/Unexplained Change in Mental Status Sepsis Action Taken by Nursing 04/03/20 15:10 04/03/20 15:20 04/03/20 15:30 Temperature Temperature Source Pulse Rate 93 H 85 72 Pulse Rate from SpO2 Sensor 92 H 72 72 Pulse Rhythm Pulse Strength Respiratory Rate 14 14 15 Respiratory Effort / Characteristics Respiratory Depth Respiratory Pattern Blood Pressure Blood Pressure Mean Blood Pressure Position Pulse Oximetry 98 95 96 Oxygen Delivery Method Room Air Room Air Room Air Sepsis Recent Fever Within 48 Hours Sepsis New/Unexplained Change in Mental Status Sepsis Action Taken by Nursing 04/03/20 16:05 04/03/20 16:10 04/03/20 16:20 Temperature Temperature Source Pulse Rate 83 84 82 Pulse Rate from SpO2 Sensor 83 84 80 Pulse Rhythm Pulse Strength Respiratory Rate 15 15 15 Respiratory Effort / Characteristics Respiratory Depth Respiratory Pattern Blood Pressure 134/82 Blood Pressure Mean 95 Blood Pressure Position Pulse Oximetry 97 94 94 Oxygen Delivery Method Room Air Room Air Room Air Sepsis Recent Fever Within 48 Hours Sepsis New/Unexplained Change in Mental Status Sepsis Action Taken by Nursing 04/03/20 16:30 04/03/20 16:40 04/03/20 16:50 Temperature Temperature Source Pulse Rate 95 H 89 90 Pulse Rate from SpO2 Sensor 94 H 89 90 Pulse Rhythm Pulse Strength Respiratory Rate 13 17 14 Respiratory Effort / Characteristics Respiratory Depth Respiratory Pattern Blood Pressure 139/89 Blood Pressure Mean 98 Blood Pressure Position Pulse Oximetry 95 95 95 Oxygen Delivery Method Room Air Room Air Room Air Sepsis Recent Fever Within 48 Hours Sepsis New/Unexplained Change in Mental Status Sepsis Action Taken by Nursing 04/03/20 17:00 04/03/20 17:10 04/03/20 17:50 Temperature Temperature Source Pulse Rate 93 H 100 H 85 Pulse Rate from SpO2 Sensor 92 H 101 H Pulse Rhythm Pulse Strength Respiratory Rate 15 22 16 Respiratory Effort / Characteristics Respiratory Depth Respiratory Pattern Blood Pressure 132/79 121/80 Blood Pressure Mean 91 Blood Pressure Position Pulse Oximetry 95 96 93 Oxygen Delivery Method Room Air Room Air Room Air Sepsis Recent Fever Within 48 Hours Sepsis New/Unexplained Change in Mental Status Sepsis Action Taken by Nursing Laboratory Data Result diagrams: 04/03/20 13:46 04/03/20 13:46 Lab Results 04/03/20 04/03/20 04/03/20 Range/Units 13:46 13:46 14:24 WBC 7.11 (4.8-10.8) K/uL RBC 5.41 (4.7-6.1) M/uL Hgb 18.3 H (14.0-18.0) g/dL Hct 50.3 (42-52) % MCV 93.0 (80-100) fL MCH 33.8 (25-34) pg MCHC 36.4 H (32-36) g/dL RDW Std Deviation 39.7 (36.4-46.3) fL RDW Coeff of Gucci 11.8 (11.5-14.5) % Plt Count 201 (130-400) K/uL MPV 9.9 (7.4-10.4) fL Immature Gran % (Auto) 0.1 % Neut % (Auto) 71.2 % Lymph % (Auto) 17.9 % Stephens % (Auto) 10.0 % Eos % (Auto) 0.7 % Baso % (Auto) 0.1 % Neut # (Auto) 5.06 (1.4-6.5) K/uL Lymph # (Auto) 1.27 (1.2-3.4) K/uL Stephens # (Auto) 0.71 H (0.11-0.59) K/uL Eos # (Auto) 0.05 (0-0.5) K/uL Baso # (Auto) 0.01 (0-0.2) K/uL Immature Gran # (Auto) 0.01 (0.00-0.02) K/uL Sodium 131 L (136-145) mmol/L Potassium 3.5 (3.5-5.1) mmol/L Chloride 93 L (98-107) mmol/L Carbon Dioxide 24 (21-32) mmol/L Anion Gap 14.0 H (3-11) BUN 13 (7-18) mg/dl Creatinine 1.13 (0.6-1.4) mg/dl Est Cr Clr Drug Dosing 98.7 ml/min Est GFR ( Amer) 89.8 Est GFR (Non-Af Amer) 77.5 BUN/Creatinine Ratio 11.2 (10-20) Glucose 280 H (70-99) mg/dl Calcium 10.3 H (8.5-10.1) mg/dl Total Bilirubin 1.6 H (0.2-1) mg/dl AST 21 (15-37) U/L ALT 35 (12-78) U/L Alkaline Phosphatase 90 (45-117) U/L Total Protein 9.4 H (6.4-8.2) gm/dl Albumin 4.4 (3.4-5.0) gm/dl Globulin 5.0 H (2.5-4.0) gm/dl Albumin/Globulin Ratio 0.9 (0.9-2) Lipase 166 (73-393) U/L Ethyl Alcohol mg/dL < 3.0 (0-3) mg/dl Administered Medications Discontinued Medications Al Hydrox/Mg Hydrox/Simethicone (Gi Cocktail Ed Use) 1 dose PO ONE ONE Stop: 04/03/20 14:06 Last Admin: 04/03/20 14:33 Dose: 1 dose Documented by: [id number] Sodium Chloride (Nss) 500 mls @ 999 mls/hr IV .Q31M STA Stop: 04/03/20 13:54 Last Infusion: 04/03/20 14:19 Dose: 0 mls/hr Documented by: [id number] Admin: 04/03/20 13:45 Dose: 999 mls/hr Documented by: [id number] Thiamine HCl 100 mg/ Syringe 10 mls @ 2 mls/min IV NOW STA Stop: 04/03/20 14:14 Last Admin: 04/03/20 17:11 Dose: 2 mls/min Documented by: [id number] Folic Acid 1 mg/ Syringe 10 mls @ 5 mls/min IV NOW STA Stop: 04/03/20 14:11 Last Admin: 04/03/20 17:12 Dose: 5 mls/min Documented by: [id number] Ioversol (Ioversol 100ml) 93 ml IV ONCE ONE Stop: 04/03/20 16:02 Last Admin: 04/03/20 16:01 Dose: 93 ml Documented by: [id number] Ketorolac Tromethamine (Ketorolac Tromethamine 15 Mg/Ml Vial) 15 mg IV NOW ONE Stop: 04/03/20 14:06 Last Admin: 04/03/20 14:32 Dose: 15 mg Documented by: [id number] Morphine Sulfate (Morphine Sulfate 10 Mg/Ml Carp/Vial) 6 mg IV NOW STA Stop: 04/03/20 16:21 Last Admin: 04/03/20 16:30 Dose: 6 mg Documented by: [id number] Ondansetron HCl (Ondansetron Inj 2 Mg/Ml 2 Ml Vial) 4 mg IV NOW STA Stop: 04/03/20 13:25 Last Admin: 04/03/20 13:45 Dose: 4 mg Documented by: [id number] Ondansetron HCl (Ondansetron Inj 2 Mg/Ml 2 Ml Vial) 4 mg IV NOW STA Stop: 04/03/20 14:06 Last Admin: 04/03/20 14:07 Dose: Not Given Documented by: [id number] Discharge Plan Visit Data Chief Complaint: Abdominal Pain Stated Complaint: ABD PAIN/BACK PAIN ED Provider: Geoff Andrade Discharge Problem: Pancreatitis, Alcohol abuse, Intractable abdominal pain Patient Disposition: Admitted As Inpatient Discharge Instructions Interventions: ED Discharge Assessment Last Done: 04/03/20 17:50 Forms Stand Alone Forms: [facility] Prescriptions Prescriptions: No Action pantoprazole 40 mg tablet,delayed release (DR/EC) 40 mg PO QAM RF: 0 metformin 500 mg 2 tab PO DAILY RF: 0 paroxetine HCl 20 mg tablet 20 mg PO QAM RF: 0 Referrals Referrals: Dhiraj Myers DO [Primary Care Provider] - Discharge Problem: Pancreatitis Qualifiers: Chronicity: acute Pancreatitis type: other Acute pancreatitis complication: unspecified Qualified Code(s): K85.80 - Other acute pancreatitis without necrosis or infection
[2020-04-03 14:33] LABS: Albumin Globulin Ratio 0.9 (0.9-2); Albumin Level 4.4 gm/dl (3.4-5.0); BUN Creatinine Ratio 11.2 (10-20); Bilirubin,Total 1.6 mg/dl (0.2-1); Calcium 10.3 mg/dl (8.5-10.1); Creatinine Clr Calc Pharmacy 98.7 ml/min; Est GFR (African American) 89.8; Est GFR (Non-African American) 77.5; Potassium 3.5 mmol/L (3.5-5.1); Total Protein 9.4 gm/dl (6.4-8.2)
[2020-04-03] MEDS ORDERED: IOVERSOL 100ml IV ONE (16:01)
--- NOTE | 2020-04-03 16:14 | CT Scan Report ---
CT SCAN OF THE ABDOMEN AND PELVIS WITH IV CONTRAST CLINICAL HISTORY: Generalized abdominal pain. COMPARISON STUDY: Abdominal CT dated 01/01/2020. TECHNIQUE: Following the IV administration of 93 cc of Optiray 320, CT scan of the abdomen and pelvi s is performed from the lung bases to the proximal femora. Images are reviewed in the axial, sagittal , and coronal planes. IV contrast was administered without complication. A dose lowering technique wa s utilized adhering to the principles of ALARA. CT DOSE: 896.48 mGy.cm FINDINGS: Lung bases: The heart is normal in size and without pericardial effusion. The lung bases are clear. Liver: The contrast-enhanced liver is normal in size and contour. The liver demonstrates diffusely di minished attenuation consistent with hepatic steatosis. Focal fatty infiltration is noted in the hepa tic hilum. There is no intrahepatic biliary ductal dilatation. The hepatic veins and portal veins are patent. The splenic vein is patent. Numerous collateral vessels are present in the left upper quadra nt. Gallbladder: Surgically absent noting clips in the gallbladder fossa. Spleen: Normal in size and attenuation. Pancreas: There is age advanced atrophy of the pancreas. Mild inflammatory change is suggested around the pancreatic head. The gland enhances homogeneously. No peripancreatic fluid collection is identif ied. Adrenal glands: Unremarkable. Kidneys: The contrast enhanced kidneys are normal in size and without hydronephrosis. The kidneys enh ance symmetrically. Abdominal vasculature: The abdominal aorta is normal in course and caliber. Bowel: There is no bowel obstruction. The appendix is not identified and reported surgically absent. Peritoneum: There is no intraperitoneal free air or abdominal ascites. There is a fat-containing umbi lical hernia. Lymphadenopathy: None. Pelvic viscera: The prostate gland is mildly enlarged and heterogeneous noting median lobe hypertroph y. The bladder wall is thickened and trabeculated indicating chronic outlet obstruction. Mild pericys tic stranding is suggested. Skeletal structures: There is postoperative change from laminectomy and posterior fusion seen from L4 -S1. No lytic or blastic lesions are seen. IMPRESSION: 1. The pancreas is atrophic. Mild inflammatory change is suggested around the pancreatic head. Correl ate clinically and with serum amylase/lipase levels for evidence of mild acute pancreatitis. 2. Prostatomegaly with evidence of chronic bladder obstruction. Question mild pericystic inflammation . Correlation with urinalysis will be required. 3. Numerous collateral vessels in the left upper quadrant are similar to previous. 4. Hepatic steatosis. 5. Additional findings as above. ACT 112: Negative or not required by law. Electronically signed by: Kareem Rivas M.D. 04/03/2020 4:12 PM
[2020-04-03] MEDS ORDERED: MoRPHine SULFATE 10 MG/ML CARP/VIAL IV STA (16:20)
--- NOTE | 2020-04-03 17:34 | History & Physical Report ---
Date of Service April 03, 2020 Assessment & Plan (1) Acute alcoholic pancreatitis: 44-year-old male with history of alcoholism, recurrent pancreatitis, diabetes type 2, GERD, bipolar disorder, anxiety disorder, other problems noted below presenting with abdominal pain since yesterday. Acute alcoholic pancreatitis History of frequent pancreatitis Patient admits to drinking 6 pack of beer per day and last drink yesterday CT abdomen pelvis: Positive mild inflammation in the pancreatic head suggestive of acute pancreatitis Lipase 166-normal N.p.o., lactated Ringer's at 200 cc/hr PRN morphine, tramadol, Toradol, scheduled Ofirmev--> PDMP checked no issues GI consulted Alcoholism Last drink yesterday 6 pack of beer per day No signs of acute withdrawal at this time Start alcohol withdrawal protocol, including PRN Ativan and tapered doses of gabapentin Monitor in [facility] with telemetry Patient strongly encouraged alcohol cessation, informed acute pancreatitis can be life-threatening Patient verbalized understanding and agreement, declines inpatient rehab at this time Elevated T bili Liver panel pending Repeat liver panel tomorrow Patient reports prior cholecystectomy, check liver ultrasound Diabetes type 2 A1c pending Started on metformin extended release 1000 mg/day earlier this month by PCP, patient has not started this yet Insulin sliding scale for now Bipolar disorder, generalized anxiety disorder Mood stable as per patient Continue paroxetine GERD Protonix IV for now Usually on Protonix p.o. History of PE Heparin subcu every 8 hours for DVT/PE prophylaxis Chronic pain History of narcotic abuse per previous H&P's Not on pain meds at this time PDMP checked, no issues DVT prophylaxis Heparin subcu every 8 Position Anticipate discharge to home medically stable Plan of care discussed with patient in detail and at length All questions were answered He is understanding, comfortable, comfortable with plan of care History of Present Illness 44-year-old male with history of alcoholism, recurrent pancreatitis, diabetes type 2, GERD, bipolar disorder, anxiety disorder, other problems noted below presenting with abdominal pain since yesterday. Patient reports that he drinks sixpack of beer per day. Last drink was ye sterday. Patient started to have central abdominal pain radiating to the sides starting yesterday, reminiscent of his usual bouts of pancreatitis. The pain progressed prompting patient to present to the ER today. He had one episode of emesis this morning, nonbloody. Denies shortness of breath, chest pain, headache, dizziness, palpitations, melena or hematochezia. Denies fevers or chills, tremors, sweating, anxiety, hallucinations, confusion. In the ER, patient was received with stable vital signs. CAT scan of the abdomen pelvis revealed mild inflammation of the pancreatic head suggestive of pancreatitis. Lipase level 166 which is normal. Patient was given morphine, Toradol, Zofran, IV NSS. On exam, the patient is seen resting in bed, comfortable, not in distress. He reports moderate to severe generalized abdominal pain. He denies having active nausea, shortness of breath, chest pain, headache, dizziness, tremors. No other symptoms Primary Care Provider: Dhiraj Myers DO Allergies Allergy/AdvReac Type Severity Reaction Status Date / Time No Known Allergies Allergy Verified 04/03/20 14:20 Home Medications Home Medications Medication Instructions Recorded Confirmed Type paroxetine HCl 20 mg PO QAM 12/20/19 04/03/20 History pantoprazole 40 mg PO QAM 01/18/20 04/03/20 History metformin 2 tab PO DAILY 04/03/20 04/03/20 History Past Med/Surg History Medical History (Updated 04/03/20 @ 17:33 by Antony Lind MD) Abdominal pain Acute hyperglycemia Alcohol abuse (Unknown) Alcohol abuse Renae's esophagus (Unknown) "per EGD 11/23/09 " On 05/31/11 09:06 Martinez Joes wrote "per EGD 11/23/09 " Chest pain Depression Depression DM type 2 (diabetes mellitus, type 2) Encounter for alcohol abuse counseling and surveillance Encounter for pre-operative examination Encounter for tobacco use cessation counseling H/O acute pancreatitis "recurrent" History of substance abuse Hyperglycemia Intentional drug overdose Lumbar degenerative disc disease Mood disorder Mood disorder Neuropathy Pancreatitis Panic disorder Pulmonary embolism Suicidal ideation Suicidal ideation Suicide attempt Surgical History H/O esophagogastroduodenoscopy "EGD 11/23/2009- mild gastritis, suspicious for gastroparesis, Z-line irregular EUS 02/04/2010- mild chronic pancreatitis, pronounced cholesterolosis of gallbladder, no biliary dilation or stones, probable gastroparesis EGD 10/31/2014- gastritis" S/P lumbar fusion L4-S1 2014 Family History Father Alcohol abuse Social History Smoking Status: Never smoker Tobacco Type: Smokeless Tobacco (Dip or Chew) Second Hand Exposure: Yes; Do You Dip or Chew Tobacco: No; Hx Alcohol Use: Yes Alcohol type: beer Hx Substance Use: No Preferred Language: [place] Island[place] Communication Ability: Effective Studio Coordinator Required: No Beliefs That Will Affect Care: None Current Living Situation: Parent Current Living Situation Comment: with mother Feels Safe at Home: Yes Review of Systems Review of Systems: All systems reviewed & are unremarkable except as noted in HPI & below Physical Exam Physical Exam: General- oriented x 3, not in distress, speaks in sentences with no effort or accessory muscle use Head- atraumatic Eyes- PERRL, EOMI, anicteric ENT- oropharynx clear Neck- supple, no JVD, no adenopathy, no thyromegaly; carotids +2/2, no bruits appreciated Lungs- clear to auscultation bilaterally, no rales/wheezes Heart- normal rate, regular rhythm; no murmur, no gallop, no rub appreciated Abdomen- normal bowel sounds, nondistended, soft, moderate tenderness in all quadrants, no masses or hepatosplenomegaly Extremities- no pretibial edema, no calf tenderness; peripheral pulses intact No tremors Neuro- alert, oriented x 3; CN 2-12 grossly intact; motor 5/5 bilaterally;sensation 100% on all extremities; no other gross focal neurologic deficits Skin- warm & dry Results & Data Results & Data ([facility]) Vital Signs (Past 12 Hours) Vital Signs Temp Pulse Resp BP Pulse Ox 04/03/20 17:10 100 H 22 96 04/03/20 17:00 93 H 15 132/79 95 04/03/20 16:50 90 14 95 04/03/20 16:40 89 17 95 04/03/20 16:30 95 H 13 139/89 95 04/03/20 16:20 82 15 94 04/03/20 16:10 84 15 94 04/03/20 16:05 83 15 134/82 97 04/03/20 15:30 72 15 96 04/03/20 15:20 85 14 95 04/03/20 15:10 93 H 14 98 04/03/20 15:00 72 15 126/80 97 04/03/20 14:50 73 16 95 04/03/20 14:40 69 15 95 04/03/20 14:31 70 17 97 04/03/20 14:20 82 21 97 04/03/20 14:10 65 15 96 04/03/20 14:00 90 28 H 136/89 04/03/20 13:42 86 17 149/91 H 98 04/03/20 11:37 37 C 94 H 20 133/93 100 Laboratory Results Laboratory Results - last 24 hr 04/03/20 04/03/20 04/03/20 13:46 13:46 14:24 WBC 7.11 RBC 5.41 Hgb 18.3 H Hct 50.3 MCV 93.0 MCH 33.8 MCHC 36.4 H RDW Std Deviation 39.7 RDW Coeff of Gucci 11.8 Plt Count 201 MPV 9.9 Immature Gran % (Auto) 0.1 Neut % (Auto) 71.2 Lymph % (Auto) 17.9 Craven % (Auto) 10.0 Eos % (Auto) 0.7 Baso % (Auto) 0.1 Neut # (Auto) 5.06 Lymph # (Auto) 1.27 Craven # (Auto) 0.71 H Eos # (Auto) 0.05 Baso # (Auto) 0.01 Immature Gran # (Auto) 0.01 Sodium 131 L Potassium 3.5 Chloride 93 L Carbon Dioxide 24 Anion Gap 14.0 H BUN 13 Creatinine 1.13 Est Cr Clr Drug Dosing 98.7 Est GFR ( Amer) 89.8 Est GFR (Non-Af Amer) 77.5 BUN/Creatinine Ratio 11.2 Glucose 280 H Calcium 10.3 H Total Bilirubin 1.6 H AST 21 ALT 35 Alkaline Phosphatase 90 Total Protein 9.4 H Albumin 4.4 Globulin 5.0 H Albumin/Globulin Ratio 0.9 Lipase 166 Ethyl Alcohol mg/dL < 3.0 Code Status & VTE Plan VTE Prophylaxis Plan VTE Prophylaxis will be ordered: Yes
[2020-04-03] MEDS ORDERED: GLUCOSE 10 TABS/TUBE PO PRN (18:40)
[2020-04-03] MEDS ORDERED: DEXTROSE 50% 50 ML SYRINGE IV PRN (18:40)
[2020-04-03] MEDS ORDERED: KETOROLAC TROMETHAMINE 15 MG/ML VIAL IV PRN (18:40)
[2020-04-03] MEDS ORDERED: CARBOHYDRATES FOR HYPOGLYCEMIA PO PRN (18:40)
[2020-04-03] MEDS ORDERED: ATIVAN IV ALCOHOL WITHDRAWL IV PRN (18:40)
[2020-04-03] MEDS ORDERED: GLUCOSE 40% GEL 15 GM TUBE PO PRN (18:40)
[2020-04-03] MEDS ORDERED: GABAPENTIN 1200MG ALCOHOL WITHDRAWAL LOAD PO STA (18:40)
[2020-04-03] MEDS ORDERED: LORazepam 0.5 MG TAB PO PRN (18:40)
[2020-04-03] MEDS ORDERED: LORazepam 2 MG/4 ML VIAL IV PRN (18:40)
[2020-04-03] MEDS ORDERED: GLUCAGON FOR INJ 1 MG VIAL SQ PRN (18:40)
[2020-04-03] MEDS ORDERED: LORazepam 1 MG/2 ML VIAL IV PRN (18:40)
[2020-04-03] MEDS ORDERED: TRAMADOL HCL 50 MG TABLET PO PRN (18:40)
[2020-04-03] MEDS ORDERED: LORazepam 3 MG/6 ML VIAL IV PRN (18:40)
[2020-04-03] MEDS: LACTATED RINGER'S 1,000 ML IV SCH ×2 (18:45→23:54)
[2020-04-03] MEDS ORDERED: GABAPENTIN 600 MG TAB PO ONE (19:00)
[2020-04-03] MEDS: MoRPHine SULFATE 4 MG/ML 1 ML CARP\\VIAL IV PRN ×2 (19:17→22:32)
[2020-04-03] MEDS: THIAMINE HCL 100 MG in SYRINGE 9 ML IV SCH (19:47)
[2020-04-03] MEDS: FOLIC ACID 1 MG TAB PO SCH (19:47)
[2020-04-03] MEDS: FOLIC ACID 1 MG in SYRINGE 9.8 ML IV SCH (19:47)
[2020-04-03] MEDS: ACETAMINOPHEN 1,000 MG/100 ML VIAL IV SCH (19:48)
[2020-04-03] MEDS: PROMETHAZINE HCL 6.25 MG in SODIUM CHLORIDE 0.9% 50 ML IV PRN (20:26)
[2020-04-03] MEDS ORDERED: INSULIN ASPART 100 UNITS/ML 3 ML PEN SC SCH (21:00)
[2020-04-03] MEDS ORDERED: Nursing to Pharmacy Communication SCH (21:00)
[2020-04-03] MEDS: HEPARIN SOD 5,000 UNIT/0.5 ML VIAL SQ SCH (22:15)
[2020-04-04] MEDS: INSULIN ASPART 100 UNITS/ML 3 ML PEN SC SCH ×4 (00:03→18:15)
[2020-04-04] MEDS: MoRPHine SULFATE 4 MG/ML 1 ML CARP\\VIAL IV PRN ×7 (02:08→21:15)
[2020-04-04] MEDS: LACTATED RINGER'S 1,000 ML IV SCH ×5 (04:09→19:59)
[2020-04-04] MEDS: ACETAMINOPHEN 1,000 MG/100 ML VIAL IV SCH ×3 (04:10→19:39)
[2020-04-04] MEDS: HEPARIN SOD 5,000 UNIT/0.5 ML VIAL SQ SCH ×3 (05:58→21:11)
[2020-04-04] MEDS: GABAPENTIN 600 MG TAB PO SCH ×3 (05:59→21:11)
[2020-04-04 06:59] LABS: Estimated Average Glucose 226 mg/dl; Hemoglobin A1C 9.5 % (4.5-5.6)
[2020-04-04 07:16] LABS: Basophils # (auto) 0.01 K/uL (0-0.2); Basophils % (auto) 0.3 %; Eosinophils # (auto) 0.18 K/uL (0-0.5); Eosinophils % (auto) 4.5 %; Hematocrit (blood only) 41.5 % (42-52); Hemoglobin 14.8 g/dL (14.0-18.0); Immature Granulocytes # (auto) 0.01 K/uL (0.00-0.02); Immature Granulocytes % (auto) 0.3 %; Lymphocytes # (auto) 1.47 K/uL (1.2-3.4); Lymphocytes % (auto) 36.9 %; Mean Corpuscular Hemoglobin 33.3 pg (25-34); Mean Corpuscular Hgb Conc 35.7 g/dL (32-36); Mean Corpuscular Volume 93.3 fL (80-100); Mean Platelet Volume 9.5 fL (7.4-10.4); Monocytes % (auto) 10.1 %; Neutrophils # (auto) 1.91 K/uL (1.4-6.5); Neutrophils % (auto) 47.9 %; Platelet Count 135 K/uL (130-400); RDW Coefficient of Variation 11.8 % (11.5-14.5); Red Blood Count 4.45 M/uL (4.7-6.1); White Blood Count 3.98 K/uL (4.8-10.8)
[2020-04-04 07:36] LABS: Albumin Level 2.7 gm/dl (3.4-5.0); BUN Creatinine Ratio 10.1 (10-20); Bilirubin,Total 1.1 mg/dl (0.2-1); Calcium 9.6 mg/dl (8.5-10.1); Est GFR (African American) 122.9; Total Protein 6.2 gm/dl (6.4-8.2)
[2020-04-04 08:33] LABS: Magnesium 2.1 mg/dl (1.8-2.4)
[2020-04-04] MEDS: FOLIC ACID 1 MG in SYRINGE 9.8 ML IV SCH (08:42)
[2020-04-04] MEDS: PANTOprazole 40 MG TAB PO SCH (08:42)
[2020-04-04] MEDS: FOLIC ACID 1 MG TAB PO SCH (08:42)
[2020-04-04] MEDS: THIAMINE HCL 100 MG in SYRINGE 9 ML IV SCH (08:42)
[2020-04-04] MEDS: PARoxetine HCL 20 MG TAB PO SCH (08:42)
[2020-04-04] MEDS: DOCUSATE SODIUM/SENNA 50/8.6MG TAB PO SCH (08:42)
[2020-04-04 10:53] LABS: Potassium 4.4 mmol/L (3.5-5.1)
[2020-04-04 11:10] LABS: Appearance Urine Clear (Clear); Bilirubin Urine Negative (Negative); Blood Urine Negative (Negative); Color Urine Orange; Glucose Urine UA 3+ (Negative); Ketones Urine 3+ (Negative); Leukocyte Esterase Urine Negative (Negative); Nitrite Urine Negative (Negative); Protein Urine Negative (Negative); Specific Gravity Urine 1.031 (1.000-1.030); Urobilinogen Urine Negative (Negative)
--- NOTE | 2020-04-04 12:58 | Electrocardiogram Report ---
Test Reason : Blood Pressure : / mmHG Vent. Rate : 073 BPM Atrial Rate : 073 BPM P-R Int : 138 ms QRS Dur : 080 ms QT Int : 394 ms P-R-T Axes : 037 029 040 degrees QTc Int : 434 ms Normal sinus rhythm with sinus arrhythmia Normal ECG When compared with ECG of 31-MAR-2020 19:31, Vent. rate has decreased BY 40 BPM Confirmed by Brice Ahumada ([id number]) on 04/04/2020 12:58:10 PM Referred By: REFERRED SELF Confirmed By:Brice Ahumada
--- NOTE | 2020-04-04 13:46 | Hospitalist Progress Note ---
Date of Service April 04, 2020 Assessment & Plan (1) Acute alcoholic pancreatitis: 44-year-old male with history of alcoholism, recurrent pancreatitis, diabetes type 2, GERD, bipolar disorder, anxiety disorder, other problems noted below presenting with abdominal pain since yesterday. Acute alcoholic pancreatitis History of frequent pancreatitis Patient admits to drinking 6 pack of beer per day and last drink yesterday CT abdomen pelvis: Positive mild inflammation in the pancreatic head suggestive of acute pancreatitis Lipase 166-normal N.p.o., lactated Ringer's at 200 cc/hr PRN morphine, tramadol, Toradol, scheduled Ofirmev--> PDMP checked no issues GI consulted Alcoholism Last drink yesterday 6 pack of beer per day No signs of acute withdrawal at this time Start alcohol withdrawal protocol, including PRN Ativan and tapered doses of gabapentin Monitor in MedSur with telemetry Patient strongly encouraged alcohol cessation, informed acute pancreatitis can be life-threatening Patient verbalized understanding and agreement, declines inpatient rehab at this time Elevated T bili Liver panel pending Repeat liver panel tomorrow Patient reports prior cholecystectomy, check liver ultrasound Liver ultrasound unremarkable Diabetes type 2 Current A1c 9.5% Started on metformin extended release 1000 mg/day earlier this month by PCP, patient has not started this yet Insulin sliding scale for now Bipolar disorder, generalized anxiety disorder Mood stable as per patient Continue paroxetine GERD Protonix IV for now Usually on Protonix p.o. History of PE Heparin subcu every 8 hours for DVT/PE prophylaxis Chronic pain History of narcotic abuse per previous H&P's Not on pain meds at this time PDMP checked, no issues DVT prophylaxis Heparin subcu every 8 Disposition Anticipate discharge to home medically stable Admission and Anticipated Discharge Date Admission Date: April 03, 2020 Subjective Patient is lying in bed, in no acute distress however somewhat uncomfortable due to pain. He says the pain is better controlled now though. His mother is at the bedside. He denies any fevers, chills, chest pain, shortness of breath. Nausea previously however now better controlled with antiemetics. Says that he only tried sips of water and ice chips and if he would drink too much water he would be in pain. However he is inquiring about clear liquid diet. Review of Systems Review of Systems: All systems reviewed & are unremarkable except as noted in HPI & below Constitutional: no fever and no chills Respiratory: no cough and no dyspnea Cardiovascular: no chest pain and no palpitations Gastrointestinal: no abdominal pain, no nausea and no vomiting Physical Exam Physical Exam: General- middle-aged male, lying in bed, alert and oriented x 3, not in distress Head- normocephalic, atraumatic Eyes- PERRL, EOMI, anicteric ENT- oropharynx clear Neck- supple, no JVD, no adenopathy Lungs- clear to auscultation bilaterally, no rales/rhonchi/wheezes Heart- normal rate, regular rhythm; no murmur, no gallop, no rub appreciated Abdomen- normal bowel sounds, nondistended, soft, moderate tenderness in upper abd. quadrants Extremities- no pretibial edema, no calf tenderness; peripheral pulses intact Neuro- alert, oriented x 3; no facial asymmetry, speech fluent, moves all 4 extremities spontaneously, no tremors Skin- warm & dry Results & Data Results & Data ([facility]) Vital Signs (Past 12 Hours) Vital Signs Temp Pulse Pulse Resp BP Pulse Ox 04/04/20 09:56 64 04/04/20 08:01 36.5 C 63 18 116/75 93 04/04/20 04:00 36.6 C 72 18 124/84 97 Laboratory Results 04/04/20 04/04/20 04/04/20 Range/Units Unknown 11:24 09:15 WBC (4.8-10.8) K/uL RBC (4.7-6.1) M/uL Hgb (14.0-18.0) g/dL Hct (42-52) % MCV (80-100) fL MCH (25-34) pg MCHC (32-36) g/dL RDW Std Deviation (36.4-46.3) fL RDW Coeff of Gucci (11.5-14.5) % Plt Count (130-400) K/uL MPV (7.4-10.4) fL Immature Gran % (Auto) % Neut % (Auto) % Lymph % (Auto) % [place] % (Auto) % Eos % (Auto) % Baso % (Auto) % Neut # (Auto) (1.4-6.5) K/uL Lymph # (Auto) (1.2-3.4) K/uL [place] # (Auto) (0.11-0.59) K/uL Eos # (Auto) (0-0.5) K/uL Baso # (Auto) (0-0.2) K/uL Immature Gran # (Auto) (0.00-0.02) K/uL Sodium (136-145) mmol/L Potassium (3.5-5.1) mmol/L Chloride (98-107) mmol/L Carbon Dioxide (21-32) mmol/L Anion Gap (3-11) BUN (7-18) mg/dl Creatinine (0.6-1.4) mg/dl Est Cr Clr Drug Dosing ml/min Est GFR ( Amer) Est GFR (Non-Af Amer) BUN/Creatinine Ratio (10-20) Glucose (70-99) mg/dl POC Glucose 164 H (70-99) mg/dl Estimat Average Glucose mg/dl Hemoglobin A1c (4.5-5.6) % Calcium (8.5-10.1) mg/dl Magnesium (1.8-2.4) mg/dl Total Bilirubin (0.2-1) mg/dl Direct Bilirubin 0.2 (0-0.2) mg/dl AST (15-37) U/L ALT (12-78) U/L Alkaline Phosphatase (45-117) U/L Total Protein (6.4-8.2) gm/dl Albumin (3.4-5.0) gm/dl Globulin (2.5-4.0) gm/dl Albumin/Globulin Ratio (0.9-2) Lipase (73-393) U/L Folate (>5.38) ng/ml Specimen Hemolysis Urine Color [place] Urine Appearance Clear (Clear) Urine pH 5.0 (4.5-7.5) Ur Specific [place] 1.031 H (1.000-1.030) Urine Protein Negative (Negative) Urine Glucose (UA) 3+ H (Negative) Urine Ketones 3+ H (Negative) Urine Blood Negative (Negative) Urine Nitrite Negative (Negative) Urine Bilirubin Negative (Negative) Urine Urobilinogen Negative (Negative) Ur Leukocyte Esterase Negative (Negative) Ethyl Alcohol mg/dL (0-3) mg/dl 04/04/20 04/04/20 04/04/20 Range/Units 07:50 06:25 06:25 WBC (4.8-10.8) K/uL RBC (4.7-6.1) M/uL Hgb (14.0-18.0) g/dL Hct (42-52) % MCV (80-100) fL MCH (25-34) pg MCHC (32-36) g/dL RDW Std Deviation (36.4-46.3) fL RDW Coeff of Gucci (11.5-14.5) % Plt Count (130-400) K/uL MPV (7.4-10.4) fL Immature Gran % (Auto) % Neut % (Auto) % Lymph % (Auto) % [place] % (Auto) % Eos % (Auto) % Baso % (Auto) % Neut # (Auto) (1.4-6.5) K/uL Lymph # (Auto) (1.2-3.4) K/uL [place] # (Auto) (0.11-0.59) K/uL Eos # (Auto) (0-0.5) K/uL Baso # (Auto) (0-0.2) K/uL Immature Gran # (Auto) (0.00-0.02) K/uL Sodium 137 (136-145) mmol/L Potassium 4.4 D (3.5-5.1) mmol/L Chloride 103 (98-107) mmol/L Carbon Dioxide 26 (21-32) mmol/L Anion Gap 8.0 (3-11) BUN 8 D (7-18) mg/dl Creatinine 0.82 D (0.6-1.4) mg/dl Est Cr Clr Drug Dosing 137.0 ml/min Est GFR ( Amer) 122.9 Est GFR (Non-Af Amer) 106.0 BUN/Creatinine Ratio 10.1 (10-20) Glucose 181 H (70-99) mg/dl POC Glucose (70-99) mg/dl Estimat Average Glucose 226 mg/dl Hemoglobin A1c 9.5 H (4.5-5.6) % Calcium 9.6 (8.5-10.1) mg/dl Magnesium 2.1 (1.8-2.4) mg/dl Total Bilirubin 1.1 H (0.2-1) mg/dl Direct Bilirubin (0-0.2) mg/dl AST 91 H (15-37) U/L ALT 79 H (12-78) U/L Alkaline Phosphatase 96 (45-117) U/L Total Protein 6.2 L D (6.4-8.2) gm/dl Albumin 2.7 L (3.4-5.0) gm/dl Globulin (2.5-4.0) gm/dl Albumin/Globulin Ratio (0.9-2) Lipase 77 (73-393) U/L Folate (>5.38) ng/ml Specimen Hemolysis Urine Color Urine Appearance (Clear) Urine pH (4.5-7.5) Ur Specific [place] (1.000-1.030) Urine Protein (Negative) Urine Glucose (UA) (Negative) Urine Ketones (Negative) Urine Blood (Negative) Urine Nitrite (Negative) Urine Bilirubin (Negative) Urine Urobilinogen (Negative) Ur Leukocyte Esterase (Negative) Ethyl Alcohol mg/dL (0-3) mg/dl 04/04/20 04/04/20 04/03/20 Range/Units 06:25 06:04 23:56 WBC 3.98 L (4.8-10.8) K/uL RBC 4.45 L (4.7-6.1) M/uL Hgb 14.8 D (14.0-18.0) g/dL Hct 41.5 L (42-52) % MCV 93.3 (80-100) fL MCH 33.3 (25-34) pg MCHC 35.7 (32-36) g/dL RDW Std Deviation 40.0 (36.4-46.3) fL RDW Coeff of Gcuci 11.8 (11.5-14.5) % Plt Count 135 (130-400) K/uL MPV 9.5 (7.4-10.4) fL Immature Gran % (Auto) 0.3 % Neut % (Auto) 47.9 % Lymph % (Auto) 36.9 % [place] % (Auto) 10.1 % Eos % (Auto) 4.5 % Baso % (Auto) 0.3 % Neut # (Auto) 1.91 (1.4-6.5) K/uL Lymph # (Auto) 1.47 (1.2-3.4) K/uL [place] # (Auto) 0.40 (0.11-0.59) K/uL Eos # (Auto) 0.18 (0-0.5) K/uL Baso # (Auto) 0.01 (0-0.2) K/uL Immature Gran # (Auto) 0.01 (0.00-0.02) K/uL Sodium (136-145) mmol/L Potassium (3.5-5.1) mmol/L Chloride (98-107) mmol/L Carbon Dioxide (21-32) mmol/L Anion Gap (3-11) BUN (7-18) mg/dl Creatinine (0.6-1.4) mg/dl Est Cr Clr Drug Dosing ml/min Est GFR ( Amer) Est GFR (Non-Af Amer) BUN/Creatinine Ratio (10-20) Glucose (70-99) mg/dl POC Glucose 159 H 173 H (70-99) mg/dl Estimat Average Glucose mg/dl Hemoglobin A1c (4.5-5.6) % Calcium (8.5-10.1) mg/dl Magnesium (1.8-2.4) mg/dl Total Bilirubin (0.2-1) mg/dl Direct Bilirubin (0-0.2) mg/dl AST (15-37) U/L ALT (12-78) U/L Alkaline Phosphatase (45-117) U/L Total Protein (6.4-8.2) gm/dl Albumin (3.4-5.0) gm/dl Globulin (2.5-4.0) gm/dl Albumin/Globulin Ratio (0.9-2) Lipase (73-393) U/L Folate (>5.38) ng/ml Specimen Hemolysis Urine Color Urine Appearance (Clear) Urine pH (4.5-7.5) Ur Specific [place] (1.000-1.030) Urine Protein (Negative) Urine Glucose (UA) (Negative) Urine Ketones (Negative) Urine Blood (Negative) Urine Nitrite (Negative) Urine Bilirubin (Negative) Urine Urobilinogen (Negative) Ur Leukocyte Esterase (Negative) Ethyl Alcohol mg/dL (0-3) mg/dl 04/03/20 04/03/20 04/03/20 Range/Units 20:47 19:02 14:24 WBC (4.8-10.8) K/uL RBC (4.7-6.1) M/uL Hgb (14.0-18.0) g/dL Hct (42-52) % MCV (80-100) fL MCH (25-34) pg MCHC (32-36) g/dL RDW Std Deviation (36.4-46.3) fL RDW Coeff of Gucci (11.5-14.5) % Plt Count (130-400) K/uL MPV (7.4-10.4) fL Immature Gran % (Auto) % Neut % (Auto) % Lymph % (Auto) % [place] % (Auto) % Eos % (Auto) % Baso % (Auto) % Neut # (Auto) (1.4-6.5) K/uL Lymph # (Auto) (1.2-3.4) K/uL [place] # (Auto) (0.11-0.59) K/uL Eos # (Auto) (0-0.5) K/uL Baso # (Auto) (0-0.2) K/uL Immature Gran # (Auto) (0.00-0.02) K/uL Sodium (136-145) mmol/L Potassium (3.5-5.1) mmol/L Chloride (98-107) mmol/L Carbon Dioxide (21-32) mmol/L Anion Gap (3-11) BUN (7-18) mg/dl Creatinine (0.6-1.4) mg/dl Est Cr Clr Drug Dosing ml/min Est GFR ( Amer) Est GFR (Non-Af Amer) BUN/Creatinine Ratio (10-20) Glucose (70-99) mg/dl POC Glucose 220 H (70-99) mg/dl Estimat Average Glucose mg/dl Hemoglobin A1c (4.5-5.6) % Calcium (8.5-10.1) mg/dl Magnesium (1.8-2.4) mg/dl Total Bilirubin (0.2-1) mg/dl Direct Bilirubin (0-0.2) mg/dl AST (15-37) U/L ALT (12-78) U/L Alkaline Phosphatase (45-117) U/L Total Protein (6.4-8.2) gm/dl Albumin (3.4-5.0) gm/dl Globulin (2.5-4.0) gm/dl Albumin/Globulin Ratio (0.9-2) Lipase (73-393) U/L Folate > 24.00 (>5.38) ng/ml Specimen Hemolysis Urine Color Urine Appearance (Clear) Urine pH (4.5-7.5) Ur Specific [place] (1.000-1.030) Urine Protein (Negative) Urine Glucose (UA) (Negative) Urine Ketones (Negative) Urine Blood (Negative) Urine Nitrite (Negative) Urine Bilirubin (Negative) Urine Urobilinogen (Negative) Ur Leukocyte Esterase (Negative) Ethyl Alcohol mg/dL < 3.0 (0-3) mg/dl 04/03/20 04/03/20 Range/Units 13:46 13:46 WBC 7.11 (4.8-10.8) K/uL RBC 5.41 (4.7-6.1) M/uL Hgb 18.3 H (14.0-18.0) g/dL Hct 50.3 (42-52) % MCV 93.0 (80-100) fL MCH 33.8 (25-34) pg MCHC 36.4 H (32-36) g/dL RDW Std Deviation 39.7 (36.4-46.3) fL RDW Coeff of Gucci 11.8 (11.5-14.5) % Plt Count 201 (130-400) K/uL MPV 9.9 (7.4-10.4) fL Immature Gran % (Auto) 0.1 % Neut % (Auto) 71.2 % Lymph % (Auto) 17.9 % [place] % (Auto) 10.0 % Eos % (Auto) 0.7 % Baso % (Auto) 0.1 % Neut # (Auto) 5.06 (1.4-6.5) K/uL Lymph # (Auto) 1.27 (1.2-3.4) K/uL [place] # (Auto) 0.71 H (0.11-0.59) K/uL Eos # (Auto) 0.05 (0-0.5) K/uL Baso # (Auto) 0.01 (0-0.2) K/uL Immature Gran # (Auto) 0.01 (0.00-0.02) K/uL Sodium 131 L (136-145) mmol/L Potassium 3.5 (3.5-5.1) mmol/L Chloride 93 L (98-107) mmol/L Carbon Dioxide 24 (21-32) mmol/L Anion Gap 14.0 H (3-11) BUN 13 (7-18) mg/dl Creatinine 1.13 (0.6-1.4) mg/dl Est Cr Clr Drug Dosing 98.7 ml/min Est GFR ( Amer) 89.8 Est GFR (Non-Af Amer) 77.5 BUN/Creatinine Ratio 11.2 (10-20) Glucose 280 H (70-99) mg/dl POC Glucose (70-99) mg/dl Estimat Average Glucose mg/dl Hemoglobin A1c (4.5-5.6) % Calcium 10.3 H (8.5-10.1) mg/dl Magnesium (1.8-2.4) mg/dl Total Bilirubin 1.6 H (0.2-1) mg/dl Direct Bilirubin (0-0.2) mg/dl AST 21 (15-37) U/L ALT 35 (12-78) U/L Alkaline Phosphatase 90 (45-117) U/L Total Protein 9.4 H (6.4-8.2) gm/dl Albumin 4.4 (3.4-5.0) gm/dl Globulin 5.0 H (2.5-4.0) gm/dl Albumin/Globulin Ratio 0.9 (0.9-2) Lipase 166 (73-393) U/L Folate (>5.38) ng/ml Specimen Hemolysis Urine Color Urine Appearance (Clear) Urine pH (4.5-7.5) Ur Specific [place] (1.000-1.030) Urine Protein (Negative) Urine Glucose (UA) (Negative) Urine Ketones (Negative) Urine Blood (Negative) Urine Nitrite (Negative) Urine Bilirubin (Negative) Urine Urobilinogen (Negative) Ur Leukocyte Esterase (Negative) Ethyl Alcohol mg/dL (0-3) mg/dl Medications Administered Current Inpatient Medications Dextrose (Dextrose 50% 50 Ml Syringe) 25 - 50 ml IV UD PRN; Protocol PRN Reason: Hypoglycemia Protocol Stop: 05/03/20 18:39 Folic Acid (Folic Acid 1 Mg Tab) 1 mg PO QAM RAMOS Stop: 05/03/20 18:39 Last Admin: 04/04/20 08:42 Dose: 1 mg Documented by: Gabapentin (Gabapentin 600 Mg Tab) 600 mg PO Q8H RAMOS Stop: 04/05/20 14:01 Gabapentin (Gabapentin 600 Mg Tab) 600 mg PO Q12H RAMOS Stop: 04/06/20 12:01 Gabapentin (Gabapentin 600 Mg Tab) 600 mg PO Q24H RAMOS Stop: 04/07/20 12:01 Glucagon (Glucagon For Inj 1 Mg Vial) 1 mg SQ UD PRN; Protocol PRN Reason: Hypoglycemia Protocol Stop: 05/03/20 18:39 Glucose (Glucose 40% Gel 15 Gm Tube) 15 - 30 gm PO UD PRN; Protocol PRN Reason: Hypoglycemia Protocol Stop: 05/03/20 18:39 Glucose (Glucose 10 Tabs/Tube) 4 - 8 tabs PO UD PRN; Protocol PRN Reason: Hypoglycemia Protocol Stop: 05/03/20 18:39 Heparin Sodium (Porcine) (Heparin Sod 5,000 Unit/0.5 Ml Vial) 5,000 units SQ Q8 RAMOS Stop: 05/03/20 21:59 Last Admin: 04/04/20 13:36 Dose: Not Given Documented by: Lactated Ringer's (Lr) 1,000 mls @ 250 mls/hr IV .Q4H RAMOS Stop: 05/03/20 18:39 Last Admin: 04/04/20 11:59 Dose: 250 mls/hr Documented by: Promethazine HCl 6.25 mg/ (Sodium Chloride) 50.25 mls @ 201 mls/hr IV Q6H PRN PRN Reason: Nausea And Vomiting Stop: 05/03/20 18:39 Last Infusion: 04/03/20 20:55 Dose: Infused Documented by: Acetaminophen (Ofirmev) 1,000 mg in 100 mls @ 400 mls/hr IV Q8H RAMOS Stop: 04/06/20 19:59 Last Infusion: 04/04/20 13:31 Dose: Infused Documented by: Thiamine HCl 100 mg/ Syringe 10 mls @ 2 mls/min IV QAM RAMOS Stop: 05/03/20 18:59 Last Admin: 04/04/20 08:42 Dose: 2 mls/min Documented by: Folic Acid 1 mg/ Syringe 10 mls @ 5 mls/min IV QAM RAMOS Stop: 05/03/20 18:59 Last Admin: 04/04/20 08:42 Dose: 5 mls/min Documented by: Lorazepam (Ativan) 1 mg in 2 mls @ 2 mls/min IV UD PRN; Protocol PRN Reason: EtOH Withdrawl AWSS Score 6,7 Stop: 05/03/20 18:39 Lorazepam (Ativan) 2 mg in 4 mls @ 4 mls/min IV UD PRN; Protocol PRN Reason: EtOH Withdrawl AWSS Score 8,9 Stop: 05/03/20 18:39 Lorazepam (Ativan) 3 mg in 6 mls @ 4 mls/min IV ONCE PRN; Protocol PRN Reason: EtOH Withdrawl AWSS Score >=10 Stop: 05/03/20 18:39 Insulin Aspart (Insulin Aspart 100 Units/Ml 3 Ml Pen) 0 units SC Q6 RAMOS Stop: 05/04/20 00:00 Last Admin: 04/04/20 11:27 Dose: Not Given Documented by: Ketorolac Tromethamine (Ketorolac Tromethamine 15 Mg/Ml Vial) 15 mg IV Q6H PRN PRN Reason: Pain Stop: 04/08/20 18:39 Lorazepam (Lorazepam 0.5 Mg Tab) 0.5 mg PO Q4H PRN PRN Reason: Anxiety Stop: 05/03/20 18:39 Miscellaneous (Carbohydrates For Hypoglycemia ) 15 - 30 gm PO UD PRN PRN Reason: Hypoglycemia Protocol Stop: 05/03/20 18:39 Morphine Sulfate (Morphine Sulfate 4 Mg/Ml 1 Ml Carp\Vial) 4 mg IV Q3H PRN PRN Reason: Severe Pain Stop: 04/17/20 18:39 Last Admin: 04/04/20 11:59 Dose: 4 mg Documented by: Pantoprazole Sodium (Pantoprazole 40 Mg Tab) [facility] Stop: 05/04/20 08:59 Last Admin: 04/04/20 08:42 Dose: 40 mg Documented by: Paroxetine HCl (Paroxetine Hcl 20 Mg Tab) [facility] [place] Stop: 05/04/20 08:59 Last Admin: 04/04/20 08:42 Dose: 20 mg Documented by: Senna/Docusate Sodium (Docusate Sodium/Senna 50/8.6mg Tab) [facility] [place] Stop: 05/04/20 08:59 Last Admin: 04/04/20 08:42 Dose: 1 tab Documented by: Tramadol HCl (Tramadol Hcl 50 Mg Tablet) 50 mg PO Q4H PRN PRN Reason: Pain Stop: 05/03/20 18:39
[2020-04-04] MEDS: PROMETHAZINE HCL 6.25 MG in SODIUM CHLORIDE 0.9% 50 ML IV PRN (14:04)
[2020-04-04] MEDS ORDERED: Nursing to Pharmacy Communication SCH (21:15)
--- NOTE | 2020-04-04 21:54 | Ultrasound Report ---
ULTRASOUND RIGHT UPPER QUADRANT ABDOMEN CLINICAL HISTORY: Elevated hepatic transaminases. COMPARISON STUDY: Abdominal CT dated 04/03/2020. TECHNIQUE: Real-time, grayscale, and color flow sonography of the right upper quadrant of the abdomen was performed. Images are reviewed in the transverse and longitudinal planes. FINDINGS: Liver: The liver is normal in size and echotexture. There is no intrahepatic biliary ductal dilatatio n. The main portal vein is patent. Gallbladder: The gallbladder is surgically absent. The common bile duct measures up to 0.2 cm in diam eter. Pancreas: Not visualized due to overlying bowel gas. Right kidney: Survey images of the right kidney demonstrate normal size and echotexture. There is no hydronephrosis. Ascites: None. IMPRESSION: 1. Unremarkable sonographic assessment of the liver. 2. Status post cholecystectomy. ACT 112: Negative or not required by law. Electronically signed by: Kareem Rivas M.D. 04/04/2020 9:52 PM
[2020-04-05] MEDS: INSULIN ASPART 100 UNITS/ML 3 ML PEN SC SCH ×5 (00:12→20:09)
[2020-04-05] MEDS: LACTATED RINGER'S 1,000 ML IV SCH ×6 (00:13→20:39)
[2020-04-05] MEDS: MoRPHine SULFATE 4 MG/ML 1 ML CARP\\VIAL IV PRN ×8 (00:15→23:56)
[2020-04-05] MEDS: ACETAMINOPHEN 1,000 MG/100 ML VIAL IV SCH ×3 (03:06→19:28)
[2020-04-05] MEDS: HEPARIN SOD 5,000 UNIT/0.5 ML VIAL SQ SCH ×3 (06:18→21:09)
[2020-04-05] MEDS: GABAPENTIN 600 MG TAB PO SCH ×3 (06:20→23:56)
[2020-04-05] MEDS: DOCUSATE SODIUM/SENNA 50/8.6MG TAB PO SCH (07:52)
[2020-04-05] MEDS: PARoxetine HCL 20 MG TAB PO SCH (07:52)
[2020-04-05] MEDS: FOLIC ACID 1 MG TAB PO SCH (07:53)
[2020-04-05] MEDS: PANTOprazole 40 MG TAB PO SCH (07:53)
[2020-04-05] MEDS: FOLIC ACID 1 MG in SYRINGE 9.8 ML IV SCH (07:54)
[2020-04-05] MEDS: THIAMINE HCL 100 MG in SYRINGE 9 ML IV SCH (07:55)
[2020-04-05 08:26] LABS: BUN Creatinine Ratio 6.9 (10-20); Calcium 8.9 mg/dl (8.5-10.1); Creatinine Clr Calc Pharmacy 139.7 ml/min; Est GFR (African American) 123.5; Est GFR (Non-African American) 106.6; Potassium 3.8 mmol/L (3.5-5.1)
--- NOTE | 2020-04-05 09:05 | Hospitalist Progress Note ---
Date of Service April 05, 2020 Assessment & Plan (1) Acute alcoholic pancreatitis: 44-year-old male with history of alcoholism, recurrent pancreatitis, diabetes type 2, GERD, bipolar disorder, anxiety disorder, other problems noted below presenting with abdominal pain. Acute alcoholic pancreatitis History of frequent pancreatitis Patient admits to drinking 6 pack of beer per day and last drink yesterday CT abdomen pelvis: Positive mild inflammation in the pancreatic head suggestive of acute pancreatitis Lipase 166-normal N.p.o., lactated Ringer's at 200 cc/hr PRN morphine, tramadol, Toradol, scheduled Ofirmev--> PDMP checked no issues GI consulted Alcoholism Last drink day prior to admission 6 pack of beer per day No signs of acute withdrawal at this time Start alcohol withdrawal protocol, including PRN Ativan and tapered doses of gabapentin Monitor in MedSur with telemetry Patient strongly encouraged alcohol cessation, informed acute pancreatitis can be life-threatening Patient verbalized understanding and agreement, declines inpatient rehab at this time Elevated T bili Liver panel pending Repeat liver panel tomorrow Patient reports prior cholecystectomy, check liver ultrasound Liver ultrasound unremarkable Diabetes type 2 Current A1c 9.5% Started on metformin extended release 1000 mg/day earlier this month by PCP, patient has not started this yet Insulin sliding scale for now Bipolar disorder, generalized anxiety disorder Mood stable as per patient Continue paroxetine GERD Protonix IV for now Usually on Protonix p.o. History of PE Heparin subcu every 8 hours for DVT/PE prophylaxis Chronic pain History of narcotic abuse per previous H&P's Not on pain meds at this time PDMP checked, no issues DVT prophylaxis Heparin subcu every 8 Disposition Anticipate discharge to home when medically stable Admission and Anticipated Discharge Date Admission Date: April 03, 2020 Subjective Patient is lying in bed, in no acute distress. Reports he tried clear liquid diet, however was only able to get few bites of Jell-O and few sips of broth, and then his pain increased to 7 out of 10 immediately. And so he stopped eating. He denies any fevers, chills, chest pain, shortness of breath. He is inquiring about increasing frequency of his morphine, however he was refusing to nursing staff to take ofirmev, he is also ordered tramadol prn and he did not get any of that. Also I do not see any given ketorolac which is ordered PRN. Review of Systems Review of Systems: All systems reviewed & are unremarkable except as noted in HPI & below Constitutional: no fever and no chills Respiratory: no cough and no dyspnea Cardiovascular: no chest pain and no palpitations Gastrointestinal: no abdominal pain, no nausea and no vomiting Physical Exam Physical Exam: General- middle-aged male, lying in bed, alert and oriented x 3, not in distress Head- normocephalic, atraumatic Eyes- PERRL, EOMI, anicteric ENT- oropharynx clear Neck- supple, no JVD, no adenopathy Lungs- clear to auscultation bilaterally, no rales/rhonchi/wheezes Heart- normal rate, regular rhythm; no murmur, no gallop, no rub appreciated Abdomen- normal bowel sounds, nondistended, soft, moderate tenderness in upper a bd. quadrants Extremities- no pretibial edema, no calf tenderness; peripheral pulses intact Neuro- alert, oriented x 3; no facial asymmetry, speech fluent, moves all 4 extremities spontaneously, no tremors Skin- warm & dry Results & Data Results & Data ([facility]) Vital Signs (Past 12 Hours) Vital Signs Temp Pulse Pulse Resp BP Pulse Ox 04/05/20 07:25 36.7 C 74 18 137/83 94 04/05/20 03:13 36.7 C 66 18 148/80 H 95 04/04/20 23:46 68 04/04/20 22:59 36.6 C 76 18 137/84 95 Laboratory Results 04/05/20 04/05/20 04/05/20 Range/Units 06:37 05:54 00:04 Sodium 139 (136-145) mmol/L Potassium 3.8 (3.5-5.1) mmol/L Chloride 104 (98-107) mmol/L Carbon Dioxide 29 (21-32) mmol/L Anion Gap 6.0 (3-11) BUN 6 L (7-18) mg/dl Creatinine 0.81 (0.6-1.4) mg/dl Est Cr Clr Drug Dosing 139.7 ml/min Est GFR ( Amer) 123.5 Est GFR (Non-Af Amer) 106.6 BUN/Creatinine Ratio 6.9 L (10-20) Glucose 219 H (70-99) mg/dl POC Glucose 219 H 186 H (70-99) mg/dl Calcium 8.9 (8.5-10.1) mg/dl Direct Bilirubin (0-0.2) mg/dl Urine Color Urine Appearance (Clear) Urine pH (4.5-7.5) Ur Specific [place]arden (1.000-1.030) Urine Protein (Negative) Urine Glucose (UA) (Negative) Urine Ketones (Negative) Urine Blood (Negative) Urine Nitrite (Negative) Urine Bilirubin (Negative) Urine Urobilinogen (Negative) Ur Leukocyte Esterase (Negative) 04/04/20 04/04/20 04/04/20 Range/Units Unknown 18:12 11:24 Sodium (136-145) mmol/L Potassium (3.5-5.1) mmol/L Chloride (98-107) mmol/L Carbon Dioxide (21-32) mmol/L Anion Gap (3-11) BUN (7-18) mg/dl Creatinine (0.6-1.4) mg/dl Est Cr Clr Drug Dosing ml/min Est GFR ( Amer) Est GFR (Non-Af Amer) BUN/Creatinine Ratio (10-20) Glucose (70-99) mg/dl POC Glucose 215 H 164 H (70-99) mg/dl Calcium (8.5-10.1) mg/dl Direct Bilirubin (0-0.2) mg/dl Urine Color [place] Urine Appearance Clear (Clear) Urine pH 5.0 (4.5-7.5) Ur Specific Warden 1.031 H (1.000-1.030) Urine Protein Negative (Negative) Urine Glucose (UA) 3+ H (Negative) Urine Ketones 3+ H (Negative) Urine Blood Negative (Negative) Urine Nitrite Negative (Negative) Urine Bilirubin Negative (Negative) Urine Urobilinogen Negative (Negative) Ur Leukocyte Esterase Negative (Negative) 04/04/20 04/04/20 Range/Units 09:15 07:50 Sodium (136-145) mmol/L Potassium 4.4 D (3.5-5.1) mmol/L Chloride (98-107) mmol/L Carbon Dioxide (21-32) mmol/L Anion Gap (3-11) BUN (7-18) mg/dl Creatinine (0.6-1.4) mg/dl Est Cr Clr Drug Dosing ml/min Est GFR ( Amer) Est GFR (Non-Af Amer) BUN/Creatinine Ratio (10-20) Glucose (70-99) mg/dl POC Glucose (70-99) mg/dl Calcium (8.5-10.1) mg/dl Direct Bilirubin 0.2 (0-0.2) mg/dl Urine Color Urine Appearance (Clear) Urine pH (4.5-7.5) Ur Specific Warden (1.000-1.030) Urine Protein (Negative) Urine Glucose (UA) (Negative) Urine Ketones (Negative) Urine Blood (Negative) Urine Nitrite (Negative) Urine Bilirubin (Negative) Urine Urobilinogen (Negative) Ur Leukocyte Esterase (Negative) Medications Administered Current Inpatient Medications Dextrose (Dextrose 50% 50 Ml Syringe) 25 - 50 ml IV UD PRN; Protocol PRN Reason: Hypoglycemia Protocol Stop: 05/03/20 18:39 Folic Acid (Folic Acid 1 Mg Tab) 1 mg PO QAM RAMOS Stop: 05/03/20 18:39 Last Admin: 04/05/20 07:53 Dose: 1 mg Documented by: Gabapentin (Gabapentin 600 Mg Tab) 600 mg PO Q8H RAMOS Stop: 04/05/20 14:01 Last Admin: 04/05/20 06:20 Dose: 600 mg Documented by: Gabapentin (Gabapentin 600 Mg Tab) 600 mg PO Q12H [facility]OS Stop: 04/06/20 12:01 Gabapentin (Gabapentin 600 Mg Tab) 600 mg PO Q24H [facility]OS Stop: 04/07/20 12:01 Glucagon (Glucagon For Inj 1 Mg Vial) 1 mg SQ UD PRN; Protocol PRN Reason: Hypoglycemia Protocol Stop: 05/03/20 18:39 Glucose (Glucose 40% Gel 15 Gm Tube) 15 - 30 gm PO UD PRN; Protocol PRN Reason: Hypoglycemia Protocol Stop: 05/03/20 18:39 Glucose (Glucose 10 Tabs/Tube) 4 - 8 tabs PO UD PRN; Protocol PRN Reason: Hypoglycemia Protocol Stop: 05/03/20 18:39 Heparin Sodium (Porcine) (Heparin Sod 5,000 Unit/0.5 Ml Vial) 5,000 units SQ Q8 RAMOS Stop: 05/03/20 21:59 Last Admin: 04/05/20 06:18 Dose: Not Given Documented by: Lactated Ringer's (Lr) 1,000 mls @ 250 mls/hr IV .Q4H [facility]OS Stop: 05/03/20 18:39 Last Admin: 04/05/20 08:17 Dose: 250 mls/hr Documented by: Promethazine HCl 6.25 mg/ (Sodium Chloride) 50.25 mls @ 201 mls/hr IV Q6H PRN PRN Reason: Nausea And Vomiting Stop: 05/03/20 18:39 Last Infusion: 04/04/20 14:20 Dose: Infused Documented by: Acetaminophen (Ofirm) 1,000 mg in 100 mls @ 400 mls/hr IV Q8H [facility] Stop: 04/06/20 19:59 Last Admin: 04/05/20 03:06 Dose: Not Given Documented by: Thiamine HCl 100 mg/ Syringe 10 mls @ 2 mls/min IV QAM [facility] Stop: 05/03/20 18:59 Last Admin: 04/05/20 07:55 Dose: 2 mls/min Documented by: Folic Acid 1 mg/ Syringe 10 mls @ 5 mls/min IV QAM [facility] Stop: 05/03/20 18:59 Last Admin: 04/05/20 07:54 Dose: 5 mls/min Documented by: Lorazepam (Ativan) 1 mg in 2 mls @ 2 mls/min IV UD PRN; Protocol PRN Reason: EtOH Withdrawl AWSS Score 6,7 Stop: 05/03/20 18:39 Lorazepam (Ativan) 2 mg in 4 mls @ 4 mls/min IV UD PRN; Protocol PRN Reason: EtOH Withdrawl AWSS Score 8,9 Stop: 05/03/20 18:39 Lorazepam (Ativan) 3 mg in 6 mls @ 4 mls/min IV ONCE PRN; Protocol PRN Reason: EtOH Withdrawl AWSS Score >=10 Stop: 05/03/20 18:39 Insulin Aspart (Insulin Aspart 100 Units/Ml 3 Ml Pen) 0 units SC Q6 [facility] Stop: 05/04/20 00:00 Last Admin: 04/05/20 06:19 Dose: 1 units Documented by: Ketorolac Tromethamine (Ketorolac Tromethamine 15 Mg/Ml Vial) 15 mg IV Q6H PRN PRN Reason: Pain Stop: 04/08/20 18:39 Lorazepam (Lorazepam 0.5 Mg Tab) 0.5 mg PO Q4H PRN PRN Reason: Anxiety Stop: 05/03/20 18:39 Miscellaneous (Carbohydrates For Hypoglycemia ) 15 - 30 gm PO UD PRN PRN Reason: Hypoglycemia Protocol Stop: 05/03/20 18:39 Morphine Sulfate (Morphine Sulfate 4 Mg/Ml 1 Ml Carp\Vial) 4 mg IV Q3H PRN PRN Reason: Severe Pain Stop: 04/17/20 18:39 Last Admin: 04/05/20 06:20 Dose: 4 mg Documented by: Pantoprazole Sodium (Pantoprazole 40 Mg Tab) 40 mg PO [facility] Stop: 05/04/20 08:59 Last Admin: 04/05/20 07:53 Dose: 40 mg Documented by: Paroxetine HCl (Paroxetine Hcl 20 Mg Tab) 20 mg PO [facility] Stop: 05/04/20 08:59 Last Admin: 04/05/20 07:52 Dose: 20 mg Documented by: Senna/Docusate Sodium (Docusate Sodium/Senna 50/8.6mg Tab) 1 tab PO [facility] Stop: 05/04/20 08:59 Last Admin: 04/05/20 07:52 Dose: 1 tab Documented by: Tramadol HCl (Tramadol Hcl 50 Mg Tablet) 50 mg PO Q4H PRN PRN Reason: Pain Stop: 05/03/20 18:39
[2020-04-05] MEDS ORDERED: Nursing to Pharmacy Communication SCH (11:15)
[2020-04-06] MEDS: LACTATED RINGER'S 1,000 ML IV SCH ×6 (00:37→20:08)
[2020-04-06] MEDS: MoRPHine SULFATE 4 MG/ML 1 ML CARP\\VIAL IV PRN ×10 (02:12→22:09)
[2020-04-06] MEDS: ACETAMINOPHEN 1,000 MG/100 ML VIAL IV SCH ×2 (03:21→12:39)
[2020-04-06] MEDS: HEPARIN SOD 5,000 UNIT/0.5 ML VIAL SQ SCH ×3 (05:12→20:10)
[2020-04-06 07:54] LABS: BUN Creatinine Ratio 3.9 (10-20); Calcium 8.9 mg/dl (8.5-10.1); Creatinine Clr Calc Pharmacy 130.3 ml/min; Est GFR (Non-African American) 103.5; Potassium 3.7 mmol/L (3.5-5.1)
--- NOTE | 2020-04-06 08:00 | Consultation Report ---
DATE OF CONSULTATION: 04/04/2020 GASTROENTEROLOGY CONSULTATION REFERRED BY: Dr. Restrepo. REASON FOR CONSULTATION: I was asked to consult on this gentleman by Dr. Restrepo for evaluation of abdominal pain. HISTORY OF PRESENT ILLNESS: The patient is a 44-year-old gentleman with multiple admissions for abdominal pain related to alcohol abuse and pancreatitis. His last admission was in December. He has acute and chronic abdominal pain, ongoing alcohol abuse. He states that he was drinking alcohol regularly and developed severe abdominal pain. His abdominal pain he describes is being in the upper abdomen radiating to his back. He had some nausea, but denied vomiting. He states this came on suddenly. His last drink was the day before admission, which was last evening. He denies fevers. He denies hematemesis. He denies any trauma. I reviewed his medical records and past medical history. PAST MEDICAL HISTORY: Significant for diabetes, bipolar disease and anxiety, GERD and what is already mentioned in the HPI. HOME MEDICATIONS: Include paroxetine, pantoprazole and metformin. ALLERGIES: He denies any drug allergies. SOCIAL HISTORY: Significant for active alcohol abuse. FAMILY HISTORY: He denies any family history of gastrointestinal disease. REVIEW OF SYSTEMS: As above, otherwise he denies any recent change in vision or hearing. He has had no seizures recently. He denies any alcohol withdrawal symptoms recently. He has had no easy bruising. He denies any joint swelling. He denies any heat or cold intolerance. He has had no dysuria or polyuria. He denies any productive cough or recent chest pain or shortness of breath on exertion, though he has chronic issues with anxiety and bipolar disease. He denies any recent suicidal ideation. PHYSICAL EXAMINATION: GENERAL: Reveals a pleasant gentleman describing some mild epigastric pain. VITAL SIGNS: His most recent vitals show a blood pressure of 116/75, pulse is 64, temperature is 36.5. SKIN: Anicteric. EYES: Show anicteric sclerae. MOUTH: Clear of lesions with poor dentition. NECK: Supple with no adenopathy. CHEST: Clear. HEART: Regular rate and rhythm with no obvious murmurs. ABDOMEN: Soft with good bowel sounds. He has some tenderness to deep palpation in the epigastric area, but no masses, no hepatomegaly and no rebound. His bowel sounds are good. EXTREMITIES: Warm with good distal pulses. NEUROLOGIC: He is alert and oriented x3 and grossly intact. LABORATORIES: Show a recent white blood cell count of 3.9, hemoglobin of 14.8 and normal platelet count of 135,000. Lipase was normal with slightly elevated AST at 91 and ALT of 79, direct bilirubin of 0.2. CT of the abdomen showed atrophic pancreas and the suggestion of possible inflammatory change that was considered mild at the pancreatic head. Clinical correlation was recommended. He has hepatic steatosis as well. IMPRESSION AND PLAN: A 44-year-old gentleman with chronic abdominal pain, now presents with abdominal pain and normal lipase. I do not think this patient has severe pancreatitis. I would recommend hydration as you are doing, following his renal function, watching for signs of alcohol withdrawal and advancing his diet slowly. His abnormal imaging could be consistent with scarring related to old pancreatitis, but it is reassuring that his lipase is 77. He needs to stop alcohol abuse, which certainly would have a positive impact not only on his hepatic steatosis but also on his pancreas. I highly doubt this is ulcer disease and there could be a component of functional abdominal pain as well.
[2020-04-06] MEDS: FOLIC ACID 1 MG TAB PO SCH (08:40)
[2020-04-06] MEDS: DOCUSATE SODIUM/SENNA 50/8.6MG TAB PO SCH (08:40)
[2020-04-06] MEDS: FOLIC ACID 1 MG in SYRINGE 9.8 ML IV SCH (08:40)
[2020-04-06] MEDS: PARoxetine HCL 20 MG TAB PO SCH (08:40)
[2020-04-06] MEDS: THIAMINE HCL 100 MG in SYRINGE 9 ML IV SCH (08:40)
[2020-04-06] MEDS: PANTOprazole 40 MG TAB PO SCH (08:40)
[2020-04-06] MEDS: INSULIN ASPART 100 UNITS/ML 3 ML PEN SC SCH ×4 (08:47→20:15)
[2020-04-06] MEDS: GABAPENTIN 600 MG TAB PO SCH (12:39)
--- NOTE | 2020-04-06 16:53 | Hospitalist Progress Note ---
Date of Service April 06, 2020 Assessment & Plan (1) Acute alcoholic pancreatitis: 44-year-old male with history of alcoholism, recurrent pancreatitis, diabetes type 2, GERD, bipolar disorder, anxiety disorder, other problems noted below presenting with abdominal pain. Acute alcoholic pancreatitis History of frequent pancreatitis Patient admits to drinking 6 pack of beer per day and last drink yesterday CT abdomen pelvis: Positive mild inflammation in the pancreatic head suggestive of acute pancreatitis Lipase 166-normal N.p.o., lactated Ringer's at 200 cc/hr PRN morphine, tramadol, Toradol, scheduled Ofirmev--> PDMP checked no issues GI consulted-appreciate input and recommendation Clinically much better today and has been tolerating clears Advance diet as tolerated Likely discharge tomorrow Alcoholism Last drink day prior to admission 6 pack of beer per day No signs of acute withdrawal at this time Start alcohol withdrawal protocol, including PRN Ativan and tapered doses of gabapentin Monitor in MedSur with telemetry No signs and or symptoms of withdrawal Strongly advised to quit drinking Elevated T bili Liver panel pending Repeat liver panel tomorrow Patient reports prior cholecystectomy, check liver ultrasound Liver ultrasound unremarkable Diabetes type 2 Current A1c 9.5% Started on metformin extended release 1000 mg/day earlier this month by PCP, patient has not started this yet Insulin sliding scale for now Bipolar disorder, generalized anxiety disorder Mood stable as per patient Continue paroxetine No acute issue GERD Protonix IV for now Usually on Protonix p.o. History of PE Heparin subcu every 8 hours for DVT/PE prophylaxis Chronic pain History of narcotic abuse per previous H&P's Not on pain meds at this time PDMP checked, no issues DVT prophylaxis Heparin subcu every 8 Disposition Anticipate discharge to home when medically stable To be discharged tomorrow Admission and Anticipated Discharge Date Admission Date: April 03, 2020 Subjective 04/06/2020 The patient was seen and examined in medical telemetry unit He complains of abdominal pain without nausea or vomiting Tolerating clears and will advance accordingly Review of Systems Review of Systems: All systems reviewed and are unremarkable except as noted below Gastrointestinal: + abdominal pain (Discomfort) and + bloating; no nausea and no vomiting Physical Exam Physical Exam: Lying in bed comfortably Constitutional: well developed, well nourished and + morbidly obese; no acute distress and not ill appearing Eyes: PERRL, conjunctivae normal, anicteric sclerae ENMT: external ear and nose normal, oropharynx normal Neck: trachea midline, no thyromegaly Respiratory: normal respiratory effort; no respiratory distress Auscultation: lungs clear to auscultation bilaterally Cardiovascular: Rate/Rhythm: regular rate and regular rhythm Heart Sounds: no murmur Gastrointestinal (Abdomen): Inspection/Auscultation: abdomen normal to inspection; abdomen not distended Percussion/Palpation: + abdomen tender and abdomen soft Musculoskeletal: Minimally tender in the epigastrium Neurologic: moves all extremities; no focal motor deficits Alert, awake and oriented x3 Results & Data Results & Data ([facility]) Vital Signs (Past 12 Hours) Vital Signs Temp Pulse Pulse Resp BP Pulse Ox 04/06/20 11:46 36.8 C 65 16 126/79 97 04/06/20 07:44 63 04/06/20 07:15 36.5 C 66 16 129/86 96 04/06/20 03:13 36.7 C 72 20 125/84 95 Laboratory Results BMP 04/06/20 06:30 Sodium 139 Potassium 3.7 Chloride 103 Carbon Dioxide 30 BUN 3 L Creatinine 0.87 Glucose 250 H Calcium 8.9 Medications Administered Current Inpatient Medications Dextrose (Dextrose 50% 50 Ml Syringe) 25 - 50 ml IV UD PRN; Protocol PRN Reason: Hypoglycemia Protocol Stop: 05/03/20 18:39 Folic Acid (Folic Acid 1 Mg Tab) 1 mg PO QAM [facility]OS Stop: 05/03/20 18:39 Last Admin: 04/06/20 08:40 Dose: 1 mg Documented by: Gabapentin (Gabapentin 600 Mg Tab) 600 mg PO Q24H [facility] Stop: 04/07/20 12:01 Glucagon (Glucagon For Inj 1 Mg Vial) 1 mg SQ UD PRN; Protocol PRN Reason: Hypoglycemia Protocol Stop: 05/03/20 18:39 Glucose (Glucose 40% Gel 15 Gm Tube) 15 - 30 gm PO UD PRN; Protocol PRN Reason: Hypoglycemia Protocol Stop: 05/03/20 18:39 Glucose (Glucose 10 Tabs/Tube) 4 - 8 tabs PO UD PRN; Protocol PRN Reason: Hypoglycemia Protocol Stop: 05/03/20 18:39 Heparin Sodium (Porcine) (Heparin Sod 5,000 Unit/0.5 Ml Vial) 5,000 units SQ Q8 [facility] Stop: 05/03/20 21:59 Last Admin: 04/06/20 13:34 Dose: Not Given Documented by: Lactated Ringer's (Lr) 1,000 mls @ 250 mls/hr IV .Q4H [facility] Stop: 05/03/20 18:39 Last Admin: 04/06/20 16:01 Dose: 250 mls/hr Documented by: Promethazine HCl 6.25 mg/ (Sodium Chloride) 50.25 mls @ 201 mls/hr IV Q6H PRN PRN Reason: Nausea And Vomiting Stop: 05/03/20 18:39 Last Infusion: 04/04/20 14:20 Dose: Infused Documented by: Acetaminophen (Ofirm) 1,000 mg in 100 mls @ 400 mls/hr IV Q8H [facility] Stop: 04/06/20 19:59 Last Admin: 04/06/20 12:39 Dose: Not Given Documented by: Thiamine HCl 100 mg/ Syringe 10 mls @ 2 [facility]ls[facility] Stop: 05/03/20 18:59 Last Admin: 04/06/20 08:40 Dose: 2 mls/min Documented by: Folic Acid 1 mg/ Syringe 10 mls @ 5 mls/[facility] Stop: 05/03/20 18:59 Last Admin: 04/06/20 08:40 Dose: 5 mls/min Documented by: Lorazepam (Ativan) 1 mg in 2 mls @ 2 mls/min IV UD PRN; Protocol PRN Reason: EtOH Withdrawl AWSS Score 6,7 Stop: 05/03/20 18:39 Lorazepam (Ativan) 2 mg in 4 mls @ 4 mls/min IV UD PRN; Protocol PRN Reason: EtOH Withdrawl AWSS Score 8,9 Stop: 05/03/20 18:39 Lorazepam (Ativan) 3 mg in 6 mls @ 4 mls/min IV ONCE PRN; Protocol PRN Reason: EtOH Withdrawl AWSS Score >=10 Stop: 05/03/20 18:39 Insulin Aspart (Insulin Aspart 100 Units/Ml 3 Ml Pen) 0 units SC ACHS [facility] Stop: 05/05/20 11:29 Last Admin: 04/06/20 12:43 Dose: 2 units Documented by: Ketorolac Tromethamine (Ketorolac Tromethamine 15 Mg/Ml Vial) 15 mg IV Q6H PRN PRN Reason: Pain Stop: 04/08/20 18:39 Lorazepam (Lorazepam 0.5 Mg Tab) 0.5 mg PO Q4H PRN PRN Reason: Anxiety Stop: 05/03/20 18:39 Miscellaneous (Carbohydrates For Hypoglycemia ) 15 - 30 gm PO UD PRN PRN Reason: Hypoglycemia Protocol Stop: 05/03/20 18:39 Morphine Sulfate (Morphine Sulfate 4 Mg/Ml 1 Ml Carp\Vial) 3 mg IV Q2H PRN PRN Reason: Severe Pain Stop: 04/17/20 18:39 Last Admin: 04/06/20 14:41 Dose: 3 mg Documented by: Pantoprazole Sodium (Pantoprazole 40 Mg Tab) [facility] [place]: 05/04/20 08:59 Last Admin: 04/06/20 08:40 Dose: 40 mg Documented by: Paroxetine HCl (Paroxetine Hcl 20 Mg Tab) 20 mg PO QAM [facility] Stop: 05/04/20 08:59 Last Admin: 04/06/20 08:40 Dose: 20 mg Documented by: Senna/Docusate Sodium (Docusate Sodium/Senna 50/8.6mg Tab) 1 tab PO QAM [facility] Stop: 05/04/20 08:59 Last Admin: 04/06/20 08:40 Dose: Not Given Documented by: Tramadol HCl (Tramadol Hcl 50 Mg Tablet) 50 mg PO Q4H PRN PRN Reason: Pain Stop: 05/03/20 18:39
[2020-04-07] MEDS: MoRPHine SULFATE 4 MG/ML 1 ML CARP\\VIAL IV PRN ×4 (00:17→06:16)
[2020-04-07] MEDS: LACTATED RINGER'S 1,000 ML IV SCH ×3 (00:18→08:03)
[2020-04-07] MEDS: HEPARIN SOD 5,000 UNIT/0.5 ML VIAL SQ SCH (06:17)
[2020-04-07 07:37] LABS: Basophils # (auto) 0.01 K/uL (0-0.2); Basophils % (auto) 0.3 %; Eosinophils # (auto) 0.24 K/uL (0-0.5); Eosinophils % (auto) 6.5 %; Hematocrit (blood only) 40.8 % (42-52); Hemoglobin 14.4 g/dL (14.0-18.0); Immature Granulocytes # (auto) 0.01 K/uL (0.00-0.02); Immature Granulocytes % (auto) 0.3 %; Lymphocytes # (auto) 1.06 K/uL (1.2-3.4); Lymphocytes % (auto) 28.7 %; Mean Corpuscular Hemoglobin 33.5 pg (25-34); Mean Corpuscular Hgb Conc 35.3 g/dL (32-36); Mean Corpuscular Volume 94.9 fL (80-100); Mean Platelet Volume 9.2 fL (7.4-10.4); Monocytes % (auto) 10.8 %; Neutrophils # (auto) 1.97 K/uL (1.4-6.5); Neutrophils % (auto) 53.4 %; Platelet Count 125 K/uL (130-400); RDW Coefficient of Variation 11.7 % (11.5-14.5); RDW Standard Deviation 39.9 fL (36.4-46.3); White Blood Count 3.69 K/uL (4.8-10.8)
[2020-04-07] MEDS ORDERED: MoRPHine SULFATE 4 MG/ML 1 ML CARP\\VIAL IV PRN (07:42)
[2020-04-07 07:59] LABS: Albumin Level 2.5 gm/dl (3.4-5.0); BUN Creatinine Ratio 3.9 (10-20); Calcium 9.2 mg/dl (8.5-10.1); Creatinine Clr Calc Pharmacy 132.7 ml/min; Est GFR (African American) 120.5; Magnesium 1.9 mg/dl (1.8-2.4); Potassium 3.6 mmol/L (3.5-5.1)
[2020-04-07 08:02] LABS: Albumin Globulin Ratio 0.7 (0.9-2); Bilirubin,Total 0.5 mg/dl (0.2-1); Globulin 3.4 gm/dl (2.5-4.0); Phosphorus 3.6 mg/dl (2.5-4.9); Total Protein 5.9 gm/dl (6.4-8.2)
[2020-04-07] MEDS: PANTOprazole 40 MG TAB PO SCH (08:04)
[2020-04-07] MEDS: DOCUSATE SODIUM/SENNA 50/8.6MG TAB PO SCH (08:04)
[2020-04-07] MEDS: PARoxetine HCL 20 MG TAB PO SCH (08:04)
[2020-04-07] MEDS: THIAMINE HCL 100 MG in SYRINGE 9 ML IV SCH (08:04)
[2020-04-07] MEDS: FOLIC ACID 1 MG in SYRINGE 9.8 ML IV SCH (08:04)
[2020-04-07] MEDS: FOLIC ACID 1 MG TAB PO SCH (08:04)
[2020-04-07] MEDS: INSULIN ASPART 100 UNITS/ML 3 ML PEN SC SCH (08:06)
[2020-04-07 08:20] VITALS: TEMP 97.5; O2SAT 97
--- NOTE | 2020-04-07 09:03 | Hospitalist Progress Note ---
Date of Service April 07, 2020 Assessment & Plan (1) Acute alcoholic pancreatitis: 44-year-old male with history of alcoholism, recurrent pancreatitis, diabetes type 2, GERD, bipolar disorder, anxiety disorder, other problems noted below presenting with abdominal pain. Acute alcoholic pancreatitis History of frequent pancreatitis Patient admits to drinking 6 pack of beer per day and last drink yesterday CT abdomen pelvis: Positive mild inflammation in the pancreatic head suggestive of acute pancreatitis Lipase 166-normal N.p.o., lactated Ringer's at 200 cc/hr PRN morphine, tramadol, Toradol, scheduled Ofirmev--> PDMP checked no issues GI consulted-appreciate input and recommendation Clinically much better today and has been tolerating regular food Denies any more abdominal pain, nausea and or vomiting Will be discharged home this afternoon Alcoholism Last drink day prior to admission 6 pack of beer per day No signs of acute withdrawal at this time Start alcohol withdrawal protocol, including PRN Ativan and tapered doses of gabapentin Monitor in [facility] with telemetry No signs and or symptoms of withdrawal Strongly advised to quit drinking Elevated T bili Liver panel pending Repeat liver panel tomorrow Patient reports prior cholecystectomy, check liver ultrasound Liver ultrasound unremarkable Diabetes type 2 Current A1c 9.5% Started on metformin extended release 1000 mg/day earlier this month by PCP, patient has not started this yet Insulin sliding scale for now Bipolar disorder, generalized anxiety disorder Mood stable as per patient Continue paroxetine No acute issue GERD Protonix IV for now Usually on Protonix p.o. Will go home on oral Protonix History of PE Heparin subcu every 8 hours for DVT/PE prophylaxis Chronic pain History of narcotic abuse per previous H&P's Not on pain meds at this time PDMP checked, no issues Did not give any narcotics on discharge DVT prophylaxis Heparin subcu every 8 Disposition Anticipate discharge to home when medically stable Discharge this afternoon Admission and Anticipated Discharge Date Admission Date: April 03, 2020 Subjective 04/06/2020 The patient was seen and examined in medical telemetry unit He complains of abdominal pain without nausea or vomiting Tolerating clears and will advance accordingly 04/27/2020 The patient was seen and examined in medical telemetry unit He has been feeling a lot better with minimal pain in the abdomen Denies any nausea and or vomiting He is ambulating well in the hallways without any problems Review of Systems Review of Systems: All systems reviewed and are unremarkable except as noted below Gastrointestinal: + abdominal pain (Improved a lot); no bloating, no nausea and no vomiting Physical Exam Physical Exam: Lying in bed comfortably Constitutional: well developed, well nourished and + morbidly obese; no acute distress and not ill appearing Eyes: PERRL, conjunctivae normal, anicteric sclerae ENMT: external ear and nose normal, oropharynx normal Neck: trachea midline, no thyromegaly Respiratory: normal respiratory effort; no respiratory distress Auscultation: lungs clear to auscultation bilaterally Cardiovascular: Rate/Rhythm: regular rate and regular rhythm Heart Sounds: no murmur Gastrointestinal (Abdomen): Inspection/Auscultation: abdomen normal to inspection and normal bowel sounds; abdomen not distended Percussion/Palpation: abdomen soft; abdomen nontender Neurologic: moves all extremities; no focal motor deficits Results & Data Results & Data ([facility]) Vital Signs (Past 12 Hours) Vital Signs Temp Pulse Pulse Resp BP Pulse Ox 04/07/20 08:19 36.4 C L 62 18 119/76 97 04/07/20 07:31 65 04/07/20 02:57 36.6 C 70 15 134/82 95 04/06/20 23:55 36.7 C 71 19 136/88 96 04/06/20 23:41 90 Laboratory Results Short CBC 04/07/20 Range/Units 07:21 WBC 3.69 L (4.8-10.8) K/uL Hgb 14.4 (14.0-18.0) g/dL Hct 40.8 L (42-52) % Plt Count 125 L (130-400) K/uL BMP 04/07/20 07:21 Sodium 138 Potassium 3.6 Chloride 103 Carbon Dioxide 30 BUN 3 L Creatinine 0.86 Glucose 270 H Calcium 9.2 Liver Function 04/07/20 Range/Units 07:21 Total Bilirubin 0.5 (0.2-1) mg/dl AST 49 H (15-37) U/L ALT 62 (12-78) U/L Alkaline Phosphatase 80 (45-117) U/L Albumin 2.5 L (3.4-5.0) gm/dl Medications Administered Current Inpatient Medications Dextrose (Dextrose 50% 50 Ml Syringe) 25 - 50 ml IV UD PRN; Protocol PRN Reason: Hypoglycemia Protocol Stop: 05/03/20 18:39 Folic Acid (Folic Acid 1 Mg Tab) 1 mg PO QAM RAOMS Stop: 05/03/20 18:39 Last Admin: 04/07/20 08:04 Dose: 1 mg Documented by: Gabapentin (Gabapentin 600 Mg Tab) 600 mg PO Q24H [facility] Stop: 04/07/20 12:01 Glucagon (Glucagon For Inj 1 Mg Vial) 1 mg SQ UD PRN; Protocol PRN Reason: Hypoglycemia Protocol Stop: 05/03/20 18:39 Glucose (Glucose 40% Gel 15 Gm Tube) 15 - 30 gm PO UD PRN; Protocol PRN Reason: Hypoglycemia Protocol Stop: 05/03/20 18:39 Glucose (Glucose 10 Tabs/Tube) 4 - 8 tabs PO UD PRN; Protocol PRN Reason: Hypoglycemia Protocol Stop: 05/03/20 18:39 Heparin Sodium (Porcine) (Heparin Sod 5,000 Unit/0.5 Ml Vial) 5,000 units SQ Q8 [facility]OS Stop: 05/03/20 21:59 Last Admin: 04/07/20 06:17 Dose: Not Given Documented by: Lactated Ringer's (Lr) 1,000 mls @ 250 mls/hr IV .Q4H [facility]OS Stop: 05/03/20 18:39 Last Admin: 04/07/20 08:03 Dose: 250 mls/hr Documented by: Promethazine HCl 6.25 mg/ (Sodium Chloride) 50.25 mls @ 201 mls/hr IV Q6H PRN PRN Reason: Nausea And Vomiting Stop: 05/03/20 18:39 Last Infusion: 04/04/20 14:20 Dose: Infused Documented by: Thiamine HCl 100 mg/ Syringe 10 mls @ 2 mls/min IV QAM [facility] Stop: 05/03/20 18:59 Last Admin: 04/07/20 08:04 Dose: Not Given Documented by: Folic Acid 1 mg/ Syringe 10 mls @ 5 mls/min IV QAM [facility] Stop: 05/03/20 18:59 Last Admin: 04/07/20 08:04 Dose: Not Given Documented by: Lorazepam (Ativan) 1 mg in 2 mls @ 2 mls/min IV UD PRN; Protocol PRN Reason: EtOH Withdrawl AWSS Score 6,7 Stop: 05/03/20 18:39 Lorazepam (Ativan) 2 mg in 4 mls @ 4 mls/min IV UD PRN; Protocol PRN Reason: EtOH Withdrawl AWSS Score 8,9 Stop: 05/03/20 18:39 Lorazepam (Ativan) 3 mg in 6 mls @ 4 mls/min IV ONCE PRN; Protocol PRN Reason: EtOH Withdrawl AWSS Score >=10 Stop: 05/03/20 18:39 Insulin Aspart (Insulin Aspart 100 Units/Ml 3 Ml Pen) 0 units SC ACHS [facility] Stop: 05/05/20 11:29 Last Admin: 04/07/20 08:06 Dose: Not Given Documented by: Ketorolac Tromethamine (Ketorolac Tromethamine 15 Mg/Ml Vial) 15 mg IV Q6H PRN PRN Reason: Pain Stop: 04/08/20 18:39 Lorazepam (Lorazepam 0.5 Mg Tab) 0.5 mg PO Q4H PRN PRN Reason: Anxiety Stop: 05/03/20 18:39 Miscellaneous (Carbohydrates For Hypoglycemia ) 15 - 30 gm PO UD PRN PRN Reason: Hypoglycemia Protocol Stop: 05/03/20 18:39 Morphine Sulfate (Morphine Sulfate 4 Mg/Ml 1 Ml Carp\Vial) 2 mg IV Q4H PRN PRN Reason: Severe Pain Stop: 04/19/20 18:37 Pantoprazole Sodium (Pantoprazole 40 Mg Tab) [facility] Stop: 05/04/20 08:59 Last Admin: 04/07/20 08:04 Dose: 40 mg Documented by: Paroxetine HCl (Paroxetine Hcl 20 Mg Tab) [facility] [place] [facility] Stop: 05/04/20 08:59 Last Admin: 04/07/20 08:04 Dose: 20 mg Documented by: Senna/Docusate Sodium (Docusate Sodium/Senna 50/8.6mg Tab) 1 tab PO QAM [facility] Stop: 05/04/20 08:59 Last Admin: 04/07/20 08:04 Dose: 1 tab Documented by: Tramadol HCl (Tramadol Hcl 50 Mg Tablet) 50 mg PO Q4H PRN PRN Reason: Pain Stop: 05/03/20 18:39
[2020-04-07 11:35] VITALS: BP 130/80; PULSE 86
[2020-04-07] MEDS ORDERED: GABAPENTIN 600 MG TAB PO SCH (12:00)
--- NOTE | 2020-04-07 16:33 | Discharge Summary ---
Date of Service April 07, 2020 Admission HPI Per Admitting Provider 44-year-old male with history of alcoholism, recurrent pancreatitis, diabetes type 2, GERD, bipolar disorder, anxiety disorder, other problems noted below presenting with abdominal pain since yesterday. Patient reports that he drinks sixpack of beer per day. Last drink was yesterday. Patient started to have central abdominal pain radiating to the sides starting yesterday, reminiscent of his usual bouts of pancreatitis. The pain progressed prompting patient to present to the ER today. He had one episode of emesis this morning, nonbloody. Denies shortness of breath, chest pain, headache, dizziness, palpitations, melena or hematochezia. Denies fevers or chills, tremors, sweating, anxiety, hallucinations, confusion. In the ER, patient was received with stable vital signs. CAT scan of the abdomen pelvis revealed mild inflammation of the pancreatic head suggestive of pancreatitis. Lipase level 166 which is normal. Patient was given morphine, Toradol, Zofran, IV NSS. On exam, the patient is seen resting in bed, comfortable, not in distress. He reports moderate to severe generalized abdominal pain. He denies having active nausea, shortness of breath, chest pain, headache, dizziness, tremors. No other symptoms Primary Care Provider: Dhiraj Myers, DO Admission Exam Per Admitting Provider Physical Exam: General- oriented x 3, not in distress, speaks in sentences with no effort or accessory muscle use Head- atraumatic Eyes- PERRL, EOMI, anicteric ENT- oropharynx clear Neck- supple, no JVD, no adenopathy, no thyromegaly; carotids +2/2, no bruits appreciated Lungs- clear to auscultation bilaterally, no rales/wheezes Heart- normal rate, regular rhythm; no murmur, no gallop, no rub appreciated Abdomen- normal bowel sounds, nondistended, soft, moderate tenderness in all quadrants, no masses or hepatosplenomegaly Extremities- no pretibial edema, no calf tenderness; peripheral pulses intact No tremors Neuro- alert, oriented x 3; CN 2-12 grossly intact; motor 5/5 bilaterally;sensation 100% on all extremities; no other gross focal neurologic deficits Skin- warm & dry Principal Diagnosis Acute alcoholic pancreatitis, chronic alcoholism, diabetes type 2, bipolar disorder Discharge Exam Constitutional well developed, well nourished and + morbidly obese; no acute distress and not ill appearing Eyes PERRL, conjunctivae normal, anicteric sclerae ENMT external ear and nose normal, oropharynx normal Neck trachea midline, no thyromegaly Respiratory normal respiratory effort; no respiratory distress Auscultation: lungs clear to auscultation bilaterally Cardiovascular Rate/Rhythm: regular rate and regular rhythm Heart Sounds: no murmur Gastrointestinal (Abdomen) Inspection/Auscultation: abdomen normal to inspection and normal bowel sounds; abdomen not distended Percussion/Palpation: abdomen soft; abdomen nontender Neurologic moves all extremities; no focal motor deficits Discharge Data Allergies Allergy/AdvReac Type Severity Reaction Status Date / Time No Known Allergies Allergy Verified 04/03/20 14:20 Consultations 04/03/20 16:47 ED Decision to Admit Stat 04/03/20 18:40 Consult Gastroenterology Routine Ordered Studies 04/03/20 13:40 CT abd pelvis IV con only Stat 04/04/20 17:09 US liver Routine Diabetes Follow up Diabetes Follow-up Needed for HgbA1c >9% Hospital Course (1) Acute alcoholic pancreatitis: 44-year-old male with history of alcoholism, recurrent pancreatitis, di abetes type 2, GERD, bipolar disorder, anxiety disorder, other problems noted below presenting with abdominal pain. Acute alcoholic pancreatitis History of frequent pancreatitis Patient admits to drinking 6 pack of beer per day and last drink yesterday CT abdomen pelvis: Positive mild inflammation in the pancreatic head suggestive of acute pancreatitis Lipase 166-normal N.p.o., lactated Ringer's at 200 cc/hr PRN morphine, tramadol, Toradol, scheduled Ofirmev--> PDMP checked no issues GI consulted-appreciate input and recommendation Clinically much better today and has been tolerating regular food Denies any more abdominal pain, nausea and or vomiting Will be discharged home this afternoon Alcoholism Last drink day prior to admission 6 pack of beer per day No signs of acute withdrawal at this time Start alcohol withdrawal protocol, including PRN Ativan and tapered doses of gabapentin [facility] No signs and or symptoms of withdrawal Strongly advised to quit drinking Elevated T bili Liver panel pending Repeat liver panel tomorrow Patient reports prior cholecystectomy, check liver ultrasound Liver ultrasound unremarkable Diabetes type 2 Current A1c 9.5% Started on metformin extended release 1000 mg/day earlier this month by PCP, patient has not started this yet Insulin sliding scale for now Bipolar disorder, generalized anxiety disorder Mood stable as per patient Continue paroxetine No acute issue GERD Protonix IV for now Usually on Protonix p.o. Will go home on oral Protonix History of PE Heparin subcu every 8 hours for DVT/PE prophylaxis Chronic pain History of narcotic abuse per previous H&P's Not on pain meds at this time PDMP checked, no issues Did not give any narcotics on discharge DVT prophylaxis Heparin subcu every 8 Disposition Anticipate discharge to home when medically stable Discharge this afternoon Total Time Total Time Spent Total Time Spent (In Minutes): 35 minutes Total Time Includes: Examination of the Patient, Discharge Planning, Medication Reconciliation and Communication With Other Providers Discharge Plan Discharge Items Patient Disposition: Home - Self-Care Reason For Visit: ACUTE PANCREATITIS Discharge Diagnosis: Acute alcoholic pancreatitis, chronic alcoholism, diabetes type 2, bipolar disorder Condition on Discharge: Good Activity: Resume your previous activity Non-emergency contact: Primary Care Provider Call non-emergency contact if: you have any medication questions and your symptoms worsen Follow-up/Referrals: Dhiraj Myers DO [Primary Care Provider] - 04/10/20 11:20 am (Date & Time 04/10/2020 11:20 AM Provider Dhiraj Myres DO [facility] ) Diet: Carb Consistent or DM2 Addtl Attending Provider Instructions: Please take precaution to avoid falls Strongly advised to quit drinking Pending Studies at Discharge: No Stand-Alone Forms: My [employer], Smoking Cessation Medications and DC Order Prescriptions: New folic acid 1 mg Tablet 1 mg PO QAM 30 Days Qty: 30 RF: 0 thiamine HCl (vitamin B1) 50 mg tablet 50 mg PO DAILY Qty: 30 RF: 0 Continued pantoprazole 40 mg tablet,delayed release (DR/EC) 40 mg PO QAM RF: 0 metformin 500 mg 2 tab PO DAILY RF: 0 paroxetine HCl 20 mg tablet 20 mg PO QAM RF: 0 Discharge Orders: Discharge Order (Routine); Ordered 04/07/20 Ordered By: Samantha Bowden/Other Patient Handouts: High Blood Sugar (Hyperglycemia), Managing Type 2 Diabetes, Managing Diabetes: The A1C Test, Diabetes: Meal Planning Admission Data Admit Date/Time: 04/03/20 17:07 Attending Provider: Samantha Davis Admit Provider: Antony Lind Primary Care Provider: Dhiraj Myers Other Providers: Antony Lind ; So Prakash ; Jerome Restrepo Other Interventions: Discharge Summary Assessment (RN) Last Done: 04/07/20 11:34
== END 2020-04-07 11:47 | disposition home or self-care (01) | DRG 439 ==
LOC: ED 11:24 → SUATTDRO 17:07 → 2N 17:07

== ENCOUNTER 2020-08-30 18:44 | Inpatient (IN) ==
[2020-08-30] MEDS ORDERED: SODIUM CHLORIDE 0.9% 1000ML 1,000 ML IV SCH (19:15)
[2020-08-30 19:19] LABS: Appearance Urine Clear (Clear); Bacteria Urine Automated Negative (Negative); Blood Urine Negative (Negative); Color Urine Orange; Glucose Urine UA 3+ (Negative); Ketones Urine 3+ (Negative); Leukocyte Esterase Urine Negative (Negative); Nitrite Urine Negative (Negative); Protein Urine 1+ (Negative); RBC Urine Automated 0-4 /hpf (0-4); Specific Gravity Urine 1.041 (1.000-1.030); Urobilinogen Urine Negative (Negative); WBC Urine Automated 0 /hpf (0-5)
[2020-08-30 19:35] LABS: Bilirubin Urine 1+ (Negative)
--- NOTE | 2020-08-30 19:42 | Emergency Department Note ---
History of Present Illness General Chief complaint: Chest Pain Stated complaint: abd pain, flank pain, chest pain Time Seen by Provider: 08/30/20 19:09 Source: patient Mode of arrival: ambulatory Limitations: no limitations History of Present Illness Provider complaint: abdominal pain Onset (ago): day(s) 2 Location: abdomen Radiation: back Severity: moderate Pain Consistency: + constant Maximum Pain Intensity: 7 Current Pain Intensity: 7 Quality: + constant Relieved By: + none Exacerbated By: + movement Associated symptoms: + loss of appetite and + nausea/vomiting; no chest pain and no fever/chills Treatments prior to arrival: NSAID This is a 44-year-old male presents the emergency department complaining of abdominal and flank pain. Patient is points to the upper abdomen stating pain began dull and mild 2 days ago and is worsened since. Patient states this portion of the pain does feel similar to prior episodes of pancreatitis. Patient states he develops pancreatitis secondary to alcohol use, and does admit to drinking recently. Patient states it concerned him that the pain was persistently worsening and that he developed accompanying pain over his "left kidney". Patient points to the left flank area as the area of pain. Patient states his abdomen feels distended, and he has pain with any movement. Patient states he tried Tylenol and Advil at home without any relief. Patient states he has been nauseated but is not vomited. Patient denies any change in his urine other than it appears darker than usual. 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 Patient denies fevers or chills, trauma or injury, known sick contact or exposure to coronavirus. Patient states he has previously undergone endoscopy, does have a history of gastritis and GERD for which she takes Protonix daily. Patient denies any history of varices. Patient also denies any history of hepatitis. Patient denies any illicit drug use. Pt seen during a time of high acuity and national emergency pandemic while w earing PPE. Home Medications Medication Instructions Recorded Confirmed Type paroxetine HCl 20 mg PO QAM 12/20/19 08/30/20 History pantoprazole 40 mg PO QAM 01/18/20 08/30/20 History Allergies Allergy/AdvReac Type Severity Reaction Status Date / Time No Known Allergies Allergy Verified 08/30/20 19:27 Past Med/Surg History Medical History (Updated 08/31/20 @ 19:06 by Latonya Palomo DO) Abdominal pain Acute hyperglycemia Alcohol abuse (Unknown) Alcohol abuse Renae's esophagus (Unknown) "per EGD 11/23/09 " On 05/31/11 09:06 Martinez Jose wrote "per EGD 11/23/09 " Chest pain Depression Depression DM type 2 (diabetes mellitus, type 2) Encounter for alcohol abuse counseling and surveillance Encounter for pre-operative examination Encounter for tobacco use cessation counseling H/O acute pancreatitis "recurrent" History of substance abuse Hyperglycemia Intentional drug overdose Lumbar degenerative disc disease Mood disorder Mood disorder Neuropathy Pancreatitis Panic disorder Pulmonary embolism Suicidal ideation Suicidal ideation Suicide attempt Surgical History H/O esophagogastroduodenoscopy "EGD 11/23/2009- mild gastritis, suspicious for gastroparesis, Z-line irregular EUS 02/04/2010- mild chronic pancreatitis, pronounced cholesterolosis of gallbladder, no biliary dilation or stones, probable gastroparesis EGD 10/31/2014- gastritis" S/P lumbar fusion L4-S1 2014 Family History Father Alcohol abuse Social History Smoking Status: Never smoker Tobacco Type: Smokeless Tobacco (Dip or Chew) Second Hand Exposure: Yes; Do You Dip or Chew Tobacco: Yes; Tobacco Cessation Education Requested by Patient: No Hx Alcohol Use: Yes Alcohol type: beer Hx Substance Use: No Preferred Language: Malian Communication Ability: Effective Party Chief Required: No Beliefs That Will Affect Care: None marital status: Current Living Situation: Family Current Living Situation Comment: with mother Other Information That Helps Us Care for You: No Feels Safe at Home: Yes Safety Concerns: Feels Safe At This Time Assistive Devices: None Review of Systems See HPI for pertinent positives & negatives. and A total of 10 systems reviewed and were otherwise negative Physical Exam Vital Signs Vital Signs - 24 hr 08/30/20 18:48 08/30/20 19:34 08/30/20 19:36 Temperature 36.4 C L Temperature Source Oral Pulse Rate 124 H 102 H 98 H Pulse Rate from SpO2 Sensor Respiratory Rate 20 16 20 Respiratory Effort / Characteristics Non-Labored Respiratory Depth Normal Respiratory Pattern Regular Blood Pressure 142/99 H 129/81 Blood Pressure Mean 113 97 Blood Pressure Position Sitting Pulse Oximetry 96 Oxygen Delivery Method Room Air Sepsis Recent Fever Within 48 Hours No Sepsis New/Unexplained Change in Mental Status No Sepsis Action Taken by Nursing No Action Required 08/30/20 19:40 08/30/20 19:50 08/30/20 20:00 Temperature Temperature Source Pulse Rate 101 H 95 H 117 H Pulse Rate from SpO2 Sensor 95 H 113 H Respiratory Rate 22 16 21 Respiratory Effort / Characteristics Respiratory Depth Respiratory Pattern Blood Pressure Blood Pressure Mean Blood Pressure Position Pulse Oximetry 95 96 Oxygen Delivery Method Sepsis Recent Fever Within 48 Hours Sepsis New/Unexplained Change in Mental Status Sepsis Action Taken by Nursing 08/30/20 20:05 08/30/20 20:10 08/30/20 20:20 Temperature Temperature Source Pulse Rate 98 H 97 H 98 H Pulse Rate from SpO2 Sensor 98 H 98 H 98 H Respiratory Rate 15 Respiratory Effort / Characteristics Respiratory Depth Respiratory Pattern Blood Pressure 117/76 Blood Pressure Mean 89 Blood Pressure Position Pulse Oximetry 95 95 94 Oxygen Delivery Method Sepsis Recent Fever Within 48 Hours Sepsis New/Unexplained Change in Mental Status Sepsis Action Taken by Nursing GENERAL: alert, uncomfortable appearing, well nourished, moderate distress, non- toxic, pacing around the room EYE EXAM: normal conjunctiva, PERRL and EOM's grossly intact OROPHARYNX: no exudate, no erythema, lips, buccal mucosa, and tongue normal and mucous membranes are moist NECK: supple, no nuchal rigidity, no adenopathy, non-tender LUNGS: Clear to auscultation. Normal chest wall mechanics, no w/r/r HEART: no murmurs, S1 normal and S2 normal ABDOMEN: abdomen soft, tender across epigastric and bilateral upper quadrants, distention, normo-active bowel sounds, no masses, no rebound or guarding. BACK: Back is symmetrical on inspection and there is no deformity, no midline tenderness, left CVA tenderness. SKIN: no rashes and no bruising UPPER EXTREMITIES: upper extremities are grossly normal. FROM, nml pulses b/l. LOWER EXTREMITIES: No pitting edema. FROM, nml pulses b/l. NEURO EXAM: Normal sensorium, cranial nerves II-XII grossly intact, normal speech, no gross weakness of arms, no gross weakness of legs. Gross sensation intact. Course Course 2139: Pt updated on results. States still having significant pain and nausea. We discussed his history of alcohol abuse frankly at bedside. 2205: Discussed patient with Dr. Sousa. Administered Medications Discontinued Medications Al Hydrox/Mg Hydrox/Simethicone (Aluminum/Magnesium Susp 30 Ml Udc) 30 ml PO NOW STA Stop: 08/30/20 21:24 Last Admin: 08/30/20 21:30 Dose: 30 ml Documented by: [id number] Famotidine (Famotidine 20mg/5ml Iv Push) 20 mg IV ONE STA Stop: 08/30/20 21:24 Last Admin: 08/30/20 21:30 Dose: 20 mg Documented by: [id number] Gabapentin (Gabapentin 600 Mg Tab) 1,200 mg PO ONE ONE Stop: 08/31/20 01:48 Last Admin: 08/31/20 02:46 Dose: 1,200 mg Documented by: [id number] Gabapentin (Gabapentin 600 Mg Tab) 600 mg PO Q6H RAMOS Stop: 08/31/20 14:01 Last Admin: 08/31/20 13:56 Dose: 600 mg Documented by: [id number] Admin: 08/31/20 07:33 Dose: 600 mg Documented by: [id number] Hydromorphone HCl (Hydromorphone Inj 0.5 Mg/0.5 Ml Syr) 0.5 mg IV NOW STA Stop: 08/31/20 00:35 Last Admin: 08/31/20 00:39 Dose: 0.5 mg Documented by: [id number] Hydromorphone HCl (Hydromorphone Inj 0.5 Mg/0.5 Ml Syr) 0.5 mg IV Q3H PRN PRN Reason: Pain Stop: 09/14/20 01:46 Last Admin: 08/31/20 12:44 Dose: 0.5 mg Documented by: [id number] Admin: 08/31/20 09:15 Dose: 0.5 mg Documented by: [id number] Admin: 08/31/20 02:47 Dose: 0.5 mg Documented by: [id number] Sodium Chloride (Nss 1000ml) 1,000 mls @ 125 mls/hr IV .Q8H RAMOS Stop: 09/29/20 19:14 Last Infusion: 08/31/20 01:13 Dose: 0 mls/hr Documented by: [id number] Admin: 08/30/20 19:32 Dose: 125 mls/hr Documented by: [id number] Sodium Chloride (Nss 1000ml) 1,000 mls @ 999 mls/hr IV .Q1H1M ONE Stop: 08/30/20 21:35 Last Infusion: 08/30/20 22:12 Dose: 0 mls/hr Documented by: [id number] Admin: 08/30/20 21:03 Dose: 999 mls/hr Documented by: [id number] Multivitamins 10 ml/ Thiamine HCl 100 mg/ Folic Acid 1 mg/Sodium Chloride 1,011.2 mls @ 500 mls/hr IV .Q2H2M ONE Stop: 08/31/20 04:01 Last Infusion: 08/31/20 05:07 Dose: 0 mls/hr Documented by: [id number] Admin: 08/31/20 02:46 Dose: 500 mls/hr Documented by: [id number] Thiamine HCl 100 mg/ Syringe 10 mls @ 2 mls/min IV QAM RAMOS Stop: 09/30/20 08:59 Last Admin: 08/31/20 08:32 Dose: Not Given Documented by: [id number] Folic Acid 1 mg/ Syringe 10 mls @ 5 mls/min IV QAM RAMOS Stop: 09/30/20 08:59 Last Admin: 08/31/20 08:33 Dose: Not Given Documented by: [id number] Lactated Ringer's (Lr) 1,000 mls @ 200 mls/hr IV .Q5H RAMOS Stop: 09/30/20 02:14 Last Admin: 08/31/20 15:23 Dose: 200 mls/hr Documented by: [id number] Infusion: 08/31/20 15:00 Dose: 200 mls/hr Documented by: [id number] Admin: 08/31/20 10:00 Dose: 200 mls/hr Documented by: [id number] Infusion: 08/31/20 10:00 Dose: 0 mls/hr Documented by: [id number] Infusion: 08/31/20 05:00 Dose: 200 mls/hr Documented by: [id number] Infusion: 08/31/20 02:47 Dose: 0 mls/hr Documented by: [id number] Admin: 08/31/20 02:46 Dose: 200 mls/hr Documented by: [id number] Insulin Aspart (Insulin Aspart 100 Units/Ml 3 Ml Pen) 0 units SC Q6 RAMOS Stop: 09/30/20 11:59 Last Admin: 08/31/20 18:30 Dose: Not Given Documented by: [id number] Cosigned by: [id number] Admin: 08/31/20 12:09 Dose: Not Given Documented by: [id number] Ioversol (Ioversol 100ml) 93 ml IV ONCE ONE Stop: 08/30/20 20:58 Last Admin: 08/30/20 20:57 Dose: 93 ml Documented by: [id number] Ketorolac Tromethamine (Ketorolac Tromethamine 15 Mg/Ml Vial) 10 mg IV NOW ONE Stop: 08/30/20 21:24 Last Admin: 08/30/20 21:30 Dose: 10 mg Documented by: [id number] Morphine Sulfate (Morphine Sulfate 4 Mg/Ml 1 Ml Carp\\Vial) 4 mg IV NOW STA Stop: 08/30/20 21:56 Last Admin: 08/30/20 22:02 Dose: 4 mg Documented by: [id number] Ondansetron HCl (Ondansetron Inj 2 Mg/Ml 2 Ml Vial) 4 mg IV NOW STA Stop: 08/30/20 21:57 Last Admin: 08/30/20 22:02 Dose: 4 mg Documented by: [id number] Ondansetron HCl (Ondansetron Inj 2 Mg/Ml 2 Ml Vial) 4 mg IV Q6H PRN PRN Reason: Nausea Stop: 09/30/20 01:46 Last Admin: 08/31/20 12:44 Dose: 4 mg Documented by: [id number] Admin: 08/31/20 06:02 Dose: 4 mg Documented by: [id number] Oxycodone HCl (Oxycodone Hcl Ir 5 Mg Tab (Immediate Release)) 5 mg PO Q6H PRN PRN Reason: severe pain (6-10) Stop: 09/14/20 14:53 Last Admin: 08/31/20 15:25 Dose: 5 mg Documented by: [id number] Pantoprazole Sodium (Pantoprazole 40 Mg Tab) [facility] Stop: 09/30/20 08:59 Last Admin: 08/31/20 08:31 Dose: 40 mg Documented by: [id number] Paroxetine HCl (Paroxetine Hcl 20 Mg Tab) [address] [facility] Stop: 09/30/20 08:59 Last Admin: 08/31/20 08:30 Dose: 20 mg Documented by: [id number] Medical Decision Making Differential Diagnosis Differential diagnoses includes but is not limited to gastritis, peptic ulcer disease, GERD, gallbladder disease, pancreatitis, small bowel obstruction, acute coronary syndrome, pericarditis, ischemic bowel, irritable bowel disease, irritable bowel syndrome, appendicitis, diverticulitis, malignancy, hernia, urinary tract infection, torsion, [/ectopic (if female)], perforation, trauma, infectious. Medical Records Attestation: I reviewed the patient's medical records. Home Medications Current Medication List: was personally reviewed by me Laboratory Data Attestation: I reviewed the patient's lab results. Result diagrams: 08/31/20 07:18 08/31/20 07:18 Lab Results 08/30/20 08/30/20 08/30/20 Range/Units 18:54 19:31 19:31 WBC 6.98 (4.8-10.8) K/uL RBC 5.12 (4.7-6.1) M/uL Hgb 17.7 (14.0-18.0) g/dL Hct 47.6 (42-52) % MCV 93.0 (80-100) fL MCH 34.6 H (25-34) pg MCHC 37.2 H (32-36) g/dL RDW Std Deviation 40.6 (36.4-46.3) fL RDW Coeff of Gucci 12.0 (11.5-14.5) % Plt Count 202 (130-400) K/uL MPV 9.4 (7.4-10.4) fL Immature Gran % (Auto) 0.1 % Neut % (Auto) 68.1 % Lymph % (Auto) 18.9 % [place] % (Auto) 9.9 % Eos % (Auto) 2.6 % Baso % (Auto) 0.4 % Neut # (Auto) 4.75 (1.4-6.5) K/uL Lymph # (Auto) 1.32 (1.2-3.4) K/uL [place] # (Auto) 0.69 H (0.11-0.59) K/uL Eos # (Auto) 0.18 (0-0.5) K/uL Baso # (Auto) 0.03 (0-0.2) K/uL Immature Gran # (Auto) 0.01 (0.00-0.02) K/uL PT 11.1 (9.0-12.0) Seconds INR 1.1 (0.9-1.1) Sodium (136-145) mmol/L Potassium (3.5-5.1) mmol/L Chloride (98-107) mmol/L Carbon Dioxide (21-32) mmol/L Anion Gap (3-11) BUN (7-18) mg/dl Creatinine (0.6-1.4) mg/dl Est Cr Clr Drug Dosing ml/min Est GFR ( Amer) Est GFR (Non-Af Amer) BUN/Creatinine Ratio (10-20) Glucose (70-99) mg/dl Calcium (8.5-10.1) mg/dl Magnesium (1.8-2.4) mg/dl Total Bilirubin (0.2-1) mg/dl AST (15-37) U/L ALT (12-78) U/L Alkaline Phosphatase (45-117) U/L Troponin I (0-0.045) ng/ml NT-Pro-B Natriuret Pep (0-450) pg/ml Total Protein (6.4-8.2) gm/dl Albumin (3.4-5.0) gm/dl Globulin (2.5-4.0) gm/dl Albumin/Globulin Ratio (0.9-2) Triglycerides (0-150) mg/dl Cholesterol (0-200) mg/dl LDL Cholesterol, Calc mg/dl VLDL Cholesterol, Calc mg/dl HDL Cholesterol mg/dl Cholesterol/HDL Ratio Lipase (73-393) U/L Urine Color [place] Urine Appearance Clear (Clear) Urine pH 5.0 (4.5-7.5) Ur Specific [place] 1.041 H (1.000-1.030) Urine Protein 1+ H (Negative) Urine Glucose (UA) 3+ H (Negative) Urine Ketones 3+ H (Negative) Urine Blood Negative (Negative) Urine Nitrite Negative (Negative) Urine Bilirubin 1+ H (Negative) Urine Urobilinogen Negative (Negative) Ur Leukocyte Esterase Negative (Negative) Urine WBC (Auto) 0 (0-5) /hpf Urine RBC (Auto) 0-4 (0-4) /hpf U Hyaline Cast (Auto) 5-10 H (0-5) /lpf U Epithel Cells (Auto) 5-10 H (0-5) /lpf Urine Bacteria (Auto) Negative (Negative) Ethyl Alcohol mg/dL (0-3) mg/dl COVID-19 Eval Order SARS-CoV-2, RNA, NAAT (NEGATIVE) 08/30/20 08/30/20 08/30/20 Range/Units 19:31 19:31 19:31 WBC (4.8-10.8) K/uL RBC (4.7-6.1) M/uL Hgb (14.0-18.0) g/dL Hct (42-52) % MCV (80-100) fL MCH (25-34) pg MCHC (32-36) g/dL RDW Std Deviation (36.4-46.3) fL RDW Coeff of Gucci (11.5-14.5) % Plt Count (130-400) K/uL MPV (7.4-10.4) fL Immature Gran % (Auto) % Neut % (Auto) % Lymph % (Auto) % [place] % (Auto) % Eos % (Auto) % Baso % (Auto) % Neut # (Auto) (1.4-6.5) K/uL Lymph # (Auto) (1.2-3.4) K/uL [place] # (Auto) (0.11-0.59) K/uL Eos # (Auto) (0-0.5) K/uL Baso # (Auto) (0-0.2) K/uL Immature Gran # (Auto) (0.00-0.02) K/uL PT (9.0-12.0) Seconds INR (0.9-1.1) Sodium 130 L (136-145) mmol/L Potassium 3.9 (3.5-5.1) mmol/L Chloride 95 L (98-107) mmol/L Carbon Dioxide 22 (21-32) mmol/L Anion Gap 13.0 H (3-11) BUN 9 (7-18) mg/dl Creatinine 1.13 (0.6-1.4) mg/dl Est Cr Clr Drug Dosing 99.3 ml/min Est GFR ( Amer) 89.8 Est GFR (Non-Af Amer) 77.5 BUN/Creatinine Ratio 7.6 L (10-20) Glucose 248 H (70-99) mg/dl Calcium 10.0 (8.5-10.1) mg/dl Magnesium 2.1 (1.8-2.4) mg/dl Total Bilirubin 1.5 H (0.2-1) mg/dl AST 52 H (15-37) U/L ALT 81 H (12-78) U/L Alkaline Phosphatase 99 (45-117) U/L Troponin I < 0.015 (0-0.045) ng/ml NT-Pro-B Natriuret Pep 19 (0-450) pg/ml Total Protein 8.6 H (6.4-8.2) gm/dl Albumin 3.9 (3.4-5.0) gm/dl Globulin 4.7 H (2.5-4.0) gm/dl Albumin/Globulin Ratio 0.8 L (0.9-2) Triglycerides 166 H (0-150) mg/dl Cholesterol 175 (0-200) mg/dl LDL Cholesterol, Calc 63 mg/dl VLDL Cholesterol, Calc 33 mg/dl HDL Cholesterol 79 mg/dl Cholesterol/HDL Ratio 2 Lipase 182 (73-393) U/L Urine Color Urine Appearance (Clear) Urine pH (4.5-7.5) Ur Specific [place] (1.000-1.030) Urine Protein (Negative) Urine Glucose (UA) (Negative) Urine Ketones (Negative) Urine Blood (Negative) Urine Nitrite (Negative) Urine Bilirubin (Negative) Urine Urobilinogen (Negative) Ur Leukocyte Esterase (Negative) Urine WBC (Auto) (0-5) /hpf Urine RBC (Auto) (0-4) /hpf U Hyaline Cast (Auto) (0-5) /lpf U Epithel Cells (Auto) (0-5) /lpf Urine Bacteria (Auto) (Negative) Ethyl Alcohol mg/dL 149.3 H (0-3) mg/dl COVID-19 Eval Order SARS-CoV-2, RNA, NAAT (NEGATIVE) 08/30/20 08/30/20 Range/Units 22:58 22:58 WBC (4.8-10.8) K/uL RBC (4.7-6.1) M/uL Hgb (14.0-18.0) g/dL Hct (42-52) % MCV (80-100) fL MCH (25-34) pg MCHC (32-36) g/dL RDW Std Deviation (36.4-46.3) fL RDW Coeff of Gucci (11.5-14.5) % Plt Count (130-400) K/uL MPV (7.4-10.4) fL Immature Gran % (Auto) % Neut % (Auto) % Lymph % (Auto) % [place] % (Auto) % Eos % (Auto) % Baso % (Auto) % Neut # (Auto) (1.4-6.5) K/uL Lymph # (Auto) (1.2-3.4) K/uL [place] # (Auto) (0.11-0.59) K/uL Eos # (Auto) (0-0.5) K/uL Baso # (Auto) (0-0.2) K/uL Immature Gran # (Auto) (0.00-0.02) K/uL PT (9.0-12.0) Seconds INR (0.9-1.1) Sodium (136-145) mmol/L Potassium (3.5-5.1) mmol/L Chloride (98-107) mmol/L Carbon Dioxide (21-32) mmol/L Anion Gap (3-11) BUN (7-18) mg/dl Creatinine (0.6-1.4) mg/dl Est Cr Clr Drug Dosing ml/min Est GFR ( Amer) Est GFR (Non-Af Amer) BUN/Creatinine Ratio (10-20) Glucose (70-99) mg/dl Calcium (8.5-10.1) mg/dl Magnesium (1.8-2.4) mg/dl Total Bilirubin (0.2-1) mg/dl AST (15-37) U/L ALT (12-78) U/L Alkaline Phosphatase (45-117) U/L Troponin I (0-0.045) ng/ml NT-Pro-B Natriuret Pep (0-450) pg/ml Total Protein (6.4-8.2) gm/dl Albumin (3.4-5.0) gm/dl Globulin (2.5-4.0) gm/dl Albumin/Globulin Ratio (0.9-2) Triglycerides (0-150) mg/dl Cholesterol (0-200) mg/dl LDL Cholesterol, Calc mg/dl VLDL Cholesterol, Calc mg/dl HDL Cholesterol mg/dl Cholesterol/HDL Ratio Lipase (73-393) U/L Urine Color Urine Appearance (Clear) Urine pH (4.5-7.5) Ur Specific [place] (1.000-1.030) Urine Protein (Negative) Urine Glucose (UA) (Negative) Urine Ketones (Negative) Urine Blood (Negative) Urine Nitrite (Negative) Urine Bilirubin (Negative) Urine Urobilinogen (Negative) Ur Leukocyte Esterase (Negative) Urine WBC (Auto) (0-5) /hpf Urine RBC (Auto) (0-4) /hpf U Hyaline Cast (Auto) (0-5) /lpf U Epithel Cells (Auto) (0-5) /lpf Urine Bacteria (Auto) (Negative) Ethyl Alcohol mg/dL (0-3) mg/dl COVID-19 Eval [facility]-2, RNA, NAAT NEGATIVE (NEGATIVE) Imaging Data Radiologist's Impression: CT abdomen and pelvis with contrast: Mild haziness around the pancreatic head which could represent very mild acute pancreatitis. Correlate with lipase. Hepatic steatosis. Cholecystectomy. Portosystemic collaterals. Portal vein, SMV, and splenic vein are patent. No renal or ureteral stones. No acute abnormality along the GI tract. Appendix not visualized. Radiologist: Blake Corley MD ECG Data Attestation: I personally reviewed and interpreted this ECG as follows: Indication: + abdominal pain Rate (beats per minute): 105 Rhythm: + sinus tachycardia ECG Intervals/blocks: + Normal QRS and + Normal QT ECG [place]: + Normal ECG ST segments: + Normal ST segments Blood Pressure Blood Pressure Findings: Elevated blood pressure Blood Pressure Disposition: further management by hospitalist [facility] Narrative This is a 44-year-old male presents emergency department complaining of upper abdominal pain and left flank pain. Patient felt the abdominal pain was similar to prior episodes of pancreatitis which has previously been attributed to his use of alcohol. Patient did admit to alcohol use again recently. Patient was concerned as not only did he have worsening abdominal pain but also now had accompanying left flank pain. Due to prior history, an IV was placed, labs are drawn and sent, patient sent for CT imaging. While patient's lipase was normal I suspect this is likely due to his chronic pancreatitis secondary to ongoing alcohol use. No evidence of necrosis, infection, or pseudocyst on CT. There was evidence of peripancreatic inflammation. No evidence of obvious renal pathology despite left flank pain. Patient's UA did not reveal any hematuria or evidence of infection. Patient's other labs reassuring. Patient was mildly intoxicated here although was clinically sober during my bedside evaluation. Patient was given IV fluids, nausea medication, and pain medication. Patient was not given a dose of narcotic until after the CT revealed that peripancreatic inflammation. Due to his persistent nausea and pain, patient uncomfortable being discharge stating he cannot manage his pain at home. I would not feel comfortable at this time prescribing narcotics for the patient to use at home to given his history of alcohol abuse. Case discussed with hospitalist for additional evaluation and management. An order was placed for continuous cardiac monitoring. The monitor shows a rate of _92_ with _normal sinus_ rhythm. Impression & Plan Abdominal pain, Alcohol abuse, Pancreatitis, Alcohol intoxication, Dehydration Discharge Plan Visit Data Chief Complaint: Chest Pain Stated Complaint: abd pain, flank pain, chest pain ED Provider: January Manning Discharge Problem: Abdominal pain, Alcohol abuse, Pancreatitis, Alcohol intoxication, Dehydration Patient Disposition: Admitted As Inpatient Discharge Instructions Interventions: ED Discharge Assessment Last Done: 08/31/20 01:16 Discharge Problem: Abdominal pain Qualifiers: Abdominal location: upper abdomen, unspecified Qualified Code(s): R10.10 - Upper abdominal pain, unspecified Pancreatitis Qualifiers: Chronicity: acute Pancreatitis type: alcohol induced Acute pancreatitis complication: no infection or necrosis Qualified Code(s): K85.20 - Alcohol induced acute pancreatitis without necrosis or infection Alcohol intoxication Qualifiers: Complication of substance-induced condition: uncomplicated Qualified Code(s): F10.920 - Alcohol use, unspecified with intoxication, uncomplicated
[2020-08-30 19:59] LABS: Basophils # (auto) 0.03 K/uL (0-0.2); Basophils % (auto) 0.4 %; Eosinophils # (auto) 0.18 K/uL (0-0.5); Eosinophils % (auto) 2.6 %; Hematocrit (blood only) 47.6 % (42-52); Hemoglobin 17.7 g/dL (14.0-18.0); Immature Granulocytes # (auto) 0.01 K/uL (0.00-0.02); Immature Granulocytes % (auto) 0.1 %; Lymphocytes # (auto) 1.32 K/uL (1.2-3.4); Lymphocytes % (auto) 18.9 %; Mean Corpuscular Hemoglobin 34.6 pg (25-34); Mean Corpuscular Hgb Conc 37.2 g/dL (32-36); Mean Platelet Volume 9.4 fL (7.4-10.4); Monocytes # (auto) 0.69 K/uL (0.11-0.59); Monocytes % (auto) 9.9 %; Neutrophils # (auto) 4.75 K/uL (1.4-6.5); Neutrophils % (auto) 68.1 %; Platelet Count 202 K/uL (130-400); RDW Standard Deviation 40.6 fL (36.4-46.3); Red Blood Count 5.12 M/uL (4.7-6.1); White Blood Count 6.98 K/uL (4.8-10.8)
[2020-08-30 20:08] LABS: INR 1.1 (0.9-1.1); Prothrombin Time 11.1 Seconds (9.0-12.0)
[2020-08-30 20:19] LABS: Alanine Aminotransferase 81 U/L (12-78); Albumin Level 3.9 gm/dl (3.4-5.0); Aspartate Aminotransferase 52 U/L (15-37); BUN Creatinine Ratio 7.6 (10-20); Blood Urea Nitrogen 9 mg/dl (7-18); Carbon Dioxide 22 mmol/L (21-32); Chloride 95 mmol/L (98-107); Creatinine Clr Calc Pharmacy 99.3 ml/min; Est GFR (African American) 89.8; Est GFR (Non-African American) 77.5; Glucose 248 mg/dl (70-99); Lipase 182 U/L (73-393); Magnesium 2.1 mg/dl (1.8-2.4); Potassium 3.9 mmol/L (3.5-5.1); Sodium 130 mmol/L (136-145)
[2020-08-30 20:23] LABS: Albumin Globulin Ratio 0.8 (0.9-2); Alkaline Phosphatase 99 U/L (45-117); Bilirubin,Total 1.5 mg/dl (0.2-1); Globulin 4.7 gm/dl (2.5-4.0); NT Pro B Type Natriuretic Pept 19 pg/ml (0-450); Total Protein 8.6 gm/dl (6.4-8.2); Troponin I < 0.015 ng/ml (0-0.045)
[2020-08-30] MEDS ORDERED: SODIUM CHLORIDE 0.9% 1000ML 1,000 ML IV ONE (20:35)
[2020-08-30] MEDS ORDERED: IOVERSOL 100ml IV ONE (20:57)
[2020-08-30] MEDS ORDERED: ALUMINUM/MAGNESIUM SUSP 30 ML UDC PO STA (21:23)
[2020-08-30] MEDS ORDERED: FAMOTIDINE 20MG/5ML IV PUSH IV STA (21:23)
[2020-08-30] MEDS ORDERED: KETOROLAC TROMETHAMINE 15 MG/ML VIAL IV ONE (21:23)
[2020-08-30] MEDS ORDERED: MoRPHine SULFATE 4 MG/ML 1 ML CARP\\VIAL IV STA (21:55)
[2020-08-30] MEDS ORDERED: ONDANSETRON INJ 2 MG/ML 2 ML VIAL IV STA (21:56)
[2020-08-30 22:39] LABS: Chol HDL Ratio 2; Cholesterol 175 mg/dl (0-200); HDL Cholesterol 79 mg/dl; LDL Cholesterol Calculated 63 mg/dl; Triglycerides 166 mg/dl (0-150); VLDL Cholesterol 33 mg/dl
[2020-08-31] MEDS ORDERED: HYDROmorphone INJ 0.5 MG/0.5 ML SYR IV STA (00:34)
[2020-08-31] MEDS ORDERED: ACETAMINOPHEN 325 MG TAB PO PRN (01:47)
[2020-08-31] MEDS ORDERED: ATIVAN IV ALCOHOL WITHDRAWL IV PRN (01:47)
[2020-08-31] MEDS ORDERED: LORazepam 1 MG/2 ML VIAL IV PRN (01:47)
[2020-08-31] MEDS ORDERED: LORazepam 2 MG/4 ML VIAL IV PRN (01:47)
[2020-08-31] MEDS ORDERED: GABAPENTIN 1200MG ALCOHOL WITHDRAWAL LOAD PO STA (01:47)
[2020-08-31] MEDS ORDERED: LORazepam 3 MG/6 ML VIAL IV PRN (01:47)
[2020-08-31] MEDS ORDERED: NITROGLYCERIN SL 0.4 MG/TAB TAB SL PRN (01:47)
[2020-08-31] MEDS ORDERED: GABAPENTIN 600 MG TAB PO ONE (01:47)
[2020-08-31] MEDS ORDERED: MULTI-VITAMIN INFUSION 10 ML, THIAMINE HCL 100 MG, FOLIC ACID 1 MG in SODIUM CHLORIDE 0... IV ONE (02:00)
--- NOTE | 2020-08-31 02:00 | History and Physical Report ---
DATE OF ADMISSION: 08/31/2020 CHIEF COMPLAINT: Abdominal pain and flank pain. HISTORY OF PRESENT ILLNESS: This is a 44-year-old male with past medical history significant for recurrent admissions for alcoholism and pancreatitis, bipolar disorder, anxiety, diabetes, currently not taking any medications, chronic pain, Renae's esophagus, history of PE, who lives with his mother, comes because of complaining of abdominal pain and left flank pain. The pain started about 2-3 days ago, very severe. He has couple of episodes of vomiting, has some diarrhea. Denies any blood in stool or black stools. Urine is dark. He says since yesterday he is also getting chest pain on and off, but currently there is no chest pain. Denies any headache, no blurred vision, no earache, no runny nose, no sore throat, no loss of sense of smell or taste. No exposure to any COVID patients. No cough, no fevers. Still drinking alcohol, he says he is drinking 6-8 beers every day and chews tobacco. ALLERGIES: No known drug allergies. PAST MEDICAL HISTORY: As mentioned above. PAST SURGICAL HISTORY: Multiple EGDs with biopsy, endoscopic ultrasound, laparoscopic cholecystectomy, appendectomy. MEDICATIONS: The patient currently only taking paroxetine 20 mg p.o. daily, Protonix 40 mg p.o. a.m. FAMILY HISTORY: Significant for aunt has manic depression. Father has depression, alcohol abuse. SOCIAL HISTORY: , lives with his mom. Currently chews 1 can of tobacco daily. Alcohol, says he is drinking about 6-8 beers every day. No drug use. REVIEW OF SYMPTOMS: As per HPI. Rest of review of systems negative. PHYSICAL EXAMINATION: GENERAL: The patient is of moderate build, not in acute distress. VITAL SIGNS: Temperature 36.4, pulse 96, respiratory rate 12, blood pressure 104/61, oxygen 96% on room air. HEENT: Pupils equal, round, reactive to light. Oral mucosa moist. NECK: No JVD, no neck masses. CARDIOVASCULAR: S1, S2, regular rate and rhythm, no murmur, no gallop. RESPIRATORY SYSTEM: Normal AP diameter. No accessory muscle use. No wheezing, no crackles. ABDOMEN: Soft, bowel sounds present. Diffuse tenderness. Mild guarding, no rigidity. No distention. CENTRAL NERVOUS SYSTEM: Cranial nerves II-XII grossly intact. Nonfocal. EXTREMITIES: No edema, no erythema. LABORATORY DATA: WBC 6.9, hemoglobin 17.7, hematocrit 47.6, platelets 202. PT 11.1, INR 1.1. Sodium 130, potassium 3.9, chloride 95, bicarbonate 22, BUN 9, creatinine 1.1, serum glucose 248, calcium 10, magnesium 2.1, total bilirubin 1.5, AST 52, ALT 81, alkaline phosphatase 99. Troponin I less than 0.015. BNP 19, triglycerides 166, LDL 63. Lipase 182. Urinalysis positive for protein and glucose. Ethyl alcohol 149. SARS-CoV-2 negative. IMAGING: CT of abdomen and pelvis preliminary report shows mild haziness around the pancreatic head, which could represent very mild acute pancreatitis and cholecystectomy. EKG: Sinus tachycardia, rate of 105, no significant change was found. ASSESSMENT AND PLAN: This is a 44-year-old male with history of recurrent alcohol admission for alcoholism and pancreatitis, presents with abdominal pain, found to have possible mild acute pancreatitis. 1. Mild acute pancreatitis. Lipase is normal. History of chronic pancreatitis, CAT scan showing possible mild acute pancreatitis. We will keep him n.p.o., aggressive fluids, IV antiemetics, IV pain meds p.r.n. Consult GI in a.m. 2. Alcoholism, recurrent admissions for alcoholism, history of alcohol rehab in the past. We will place him on gabapentin protocol, IV Ativan p.r.n., banana bag, IV thiamine, IV folic acid. Monitor closely for withdrawal. 3. History of diabetes, currently not taking any medications. We will place him on insulin sliding scale. Follow the blood sugars.Follow hba1c levels. 4. Elevated LFTs, possible from alcoholism. Follow the repeat labs. 5. Depression and anxiety. Continue his paroxetine. 6. History of Renae's esophagus. Continue his Protonix. 7. Complains of chest pain on and off, EKG unremarkable and initial troponin is negative. We will follow repeat troponin and follow for any ongoing symptoms. 8. Deep venous thrombosis prophylaxis, sequential compression devices for now. 9. Disposition: Closely monitor in the med tele. Level 1 full code. Expect discharge home and follow with family doctor. MARGARET
[2020-08-31] MEDS: LACTATED RINGER'S 1,000 ML IV SCH ×3 (02:46→15:23)
[2020-08-31] MEDS: HYDROmorphone INJ 0.5 MG/0.5 ML SYR IV PRN ×3 (02:47→12:44)
[2020-08-31] MEDS: ONDANSETRON INJ 2 MG/ML 2 ML VIAL IV PRN ×2 (06:02→12:44)
--- NOTE | 2020-08-31 07:03 | CT Scan Report ---
CT abd pelvis IV con only CLINICAL HISTORY: epigastric pain, left flank pain COMPARISON STUDY: April 03, 2020 TECHNIQUE: The patient was scanned in a dynamic helical fashion during intravenous administration of 93 cc of Optiray 320 A dose lowering technique was utilized adhering to the principles of ALARA. CT DOSE: 682.50 mGy.cm FINDINGS: Lower chest: The heart is normal in size and configuration, without pericardial effusion. The lung ba ses and pleural spaces are clear. There is a small right-sided cardiophrenic angle cyst. Liver: There is borderline hepatic steatosis. No focal masses are visualized. There is no ductal dila tation. The hepatic and portal veins appear patent Gallbladder: Surgically absent Spleen: Normal in size and attenuation. Pancreas: There is distal pancreatic body and tail atrophy. There is minimal infiltration of the fat surrounding the pancreatic head a finding unchanged from the prior study. Adrenal glands: Unremarkable. Kidneys: There is symmetric renal cortical enhancement. The kidneys are normal in size without hydron ephrosis. Bowel: There are no transition zones to indicate bowel obstruction. The appendix is not visualized wi th certainty. There are no findings to indicate acute appendicitis. There is no evidence of acute div erticulitis. Peritoneum: There is no intraperitoneal free air or abdominal ascites. Vasculature: The abdominal aorta is normal in course and caliber. There are abdominal varices. Adenopathy: None. Pelvic viscera: There is mild prostatomegaly. There is mild bladder wall thickening Skeletal structures: There are postsurgical changes present within the spine IMPRESSION: 1. Borderline hepatic steatosis 2. No evidence of bowel obstruction. No evidence of free air 3. Stable minimal infiltration of the fat surrounding the pancreatic head. Clinical correlation with regards to mild pancreatitis is recommended 4. Upper abdominal varices 5. Mild prostatomegaly and mild bladder wall thickening 6. No evidence of hydronephrosis ACT 112: Negative or not required by law. Electronically signed by: Cheng Diaz M.D. 08/31/2020 7:02 AM
[2020-08-31] MEDS ORDERED: INSULIN ASPART 100 UNITS/ML 3 ML PEN SC SCH (07:30)
[2020-08-31] MEDS: GABAPENTIN 600 MG TAB PO SCH ×2 (07:33→13:56)
[2020-08-31 07:42] LABS: Basophils # (auto) 0.02 K/uL (0-0.2); Basophils % (auto) 0.5 %; Eosinophils # (auto) 0.19 K/uL (0-0.5); Eosinophils % (auto) 4.4 %; Hematocrit (blood only) 42.9 % (42-52); Hemoglobin 15.3 g/dL (14.0-18.0); Lymphocytes # (auto) 1.51 K/uL (1.2-3.4); Lymphocytes % (auto) 35.2 %; Mean Corpuscular Hemoglobin 33.6 pg (25-34); Mean Corpuscular Hgb Conc 35.7 g/dL (32-36); Mean Corpuscular Volume 94.3 fL (80-100); Mean Platelet Volume 9.3 fL (7.4-10.4); Monocytes # (auto) 0.36 K/uL (0.11-0.59); Monocytes % (auto) 8.4 %; Neutrophils # (auto) 2.21 K/uL (1.4-6.5); Neutrophils % (auto) 51.5 %; Platelet Count 152 K/uL (130-400); RDW Coefficient of Variation 12.2 % (11.5-14.5); RDW Standard Deviation 41.8 fL (36.4-46.3); Red Blood Count 4.55 M/uL (4.7-6.1); White Blood Count 4.29 K/uL (4.8-10.8)
[2020-08-31] MEDS: THIAMINE HCL 100 MG in SYRINGE 9 ML IV SCH ×2 (08:30→08:32)
[2020-08-31] MEDS: FOLIC ACID 1 MG in SYRINGE 9.8 ML IV SCH ×2 (08:30→08:33)
--- NOTE | 2020-08-31 08:36 | Gastrointestinal Consultation ---
Date of Consultation August 31, 2020 Assessment & Plan (1) Abdominal pain: 44 y/o male admitted with acute on chronic abd pain symptoms. History of chronic pancreatitis, ongoing ETOH abuse, and GI consulted for pancreatitis. His lipase is WNL and CT with no acute findings, of note, stable minimal infiltration around the pancreatic head. Suspect elevated LFTs are related to ongoing ETOH abuse. Suspect abd pain related to chronic pancreatitis vs ongoing ETOH abuse. On exam, abd soft. - Continue IV hydration - Analgesia PRN, would use judiciously in this setting with history of narcotic abuse - Consider trial of clear liquids as pain improves, then advance diet as tolerated - Continue daily PPI - Trend LFTs - Avoid NSAIDs - Discussed importance of ETOH cessation; would strongly urge pt to seek help in this regard through outpt counselors, AA, etc. He tells me he is not interested in rehab. Thank you for allowing us to participate in the care of this patient. Please call with any acute changes, questions or concerns. Please see addendum below with additional recommendation from my supervising physician. (2) Alcohol abuse: Supervising Physician Co-Signing Physician Notes Late entry: Patient was seen and examined on 08/31 with Chandana Peters PA-C whose note reflects our findings and plan. History of Present Illness Reason for Consultation: pancreatitis Requesting Physician: Jed Sousa MD Attending Physician: Latonya Palomo DO History of Present Illness This is 44 y/o male pt with PMHx ADHD, mood disorder, poorly controlled DM, GERD, chronic abd pain, hx narcotic abuse, recurrent admission for ETOH abuse and pancreatitis, who presented yesterday with abd pain. Pt states he's had for 2-3 days and is mostly epigastric and can radiate to the left flank; fairly constant. He states eating made it worse so he hasn't had much PO in the last 2-3 days. Before that was eating well; no weight loss. Labs notable for normal lipase 182, WBC 4, HGB 17->15 AST 52->110, ALT 81->98, ALP 123, Tbili 1.5, INR 1.1, Na 130->137, cr 1.1. ETOH level 149. COVID neg. CTAP with no acute changes, stable minimal infiltration of the fat around the pancreatic head; no bowel obs or free air. Currently pt complaining of improved abd pain, described as a pressure; getting narcotics q3 h. Denies n/v, melena, hematochezia, hematemesis, no history of fever, jaundice. Most recent admission 03/2020 and before that, 12/2019 for abd pain, ETOH use. Continues to drink 9 drinks per day, has been to rehab before and not currently interested, states he has to be the one to help himself quit drinking. Last EGD 09/2018 = gastritis and erythema in the duodenum Allergies Allergy/AdvReac Type Severity Reaction Status Date / Time No Known Allergies Allergy Verified 08/30/20 19:27 Home Medications Medication Instructions Recorded Confirmed Type paroxetine HCl 20 mg PO QAM 12/20/19 08/30/20 History pantoprazole 40 mg PO QAM 01/18/20 08/30/20 History Patient History Medical History (Updated 08/31/20 @ 19:06 by Latonya Palomo DO) Abdominal pain Acute hyperglycemia Alcohol abuse (Unknown) Alcohol abuse Renae's esophagus (Unknown) "per EGD 11/23/09 " On 05/31/11 09:06 Martinez Jose wrote "per EGD 11/23/09 " Chest pain Depression Depression DM type 2 (diabetes mellitus, type 2) Encounter for alcohol abuse counseling and surveillance Encounter for pre-operative examination Encounter for tobacco use cessation counseling H/O acute pancreatitis "recurrent" History of substance abuse Hyperglycemia Intentional drug overdose Lumbar degenerative disc disease Mood disorder Mood disorder Neuropathy Pancreatitis Panic disorder Pulmonary embolism Suicidal ideation Suicidal ideation Suicide attempt Surgical History H/O esophagogastroduodenoscopy "EGD 11/23/2009- mild gastritis, suspicious for gastroparesis, Z-line irregular EUS 02/04/2010- mild chronic pancreatitis, pronounced cholesterolosis of gallbladder, no biliary dilation or stones, probable gastroparesis EGD 10/31/2014- gastritis" S/P lumbar fusion L4-S1 2014 Family History Father Alcohol abuse Social History Smoking Status: Never smoker Tobacco Type: Smokeless Tobacco (Dip or Chew) Second Hand Exposure: Yes; Do You Dip or Chew Tobacco: Yes; Tobacco Cessation Education Requested by Patient: No Hx Alcohol Use: Yes Alcohol type: beer Hx Substance Use: No Preferred Language: Hebrew Communication Ability: Effective Pot Runner Required: No Beliefs That Will Affect Care: None marital status: Current Living Situation: Family Current Living Situation Comment: with mother Other Information That Helps Us Care for You: No Feels Safe at Home: Yes Safety Concerns: Feels Safe At This Time Assistive Devices: None Review of Systems Constitutional: as per Subjective / HPI Respiratory: no cough and no dyspnea Cardiovascular: no palpitations and no edema Additional Comments: c/o intermittent chest pain, none currently Gastrointestinal: as per Subjective / HPI Genitourinary: no dysuria and no hematuria Integumentary: no pruritus denies jaundice Hematologic / Lymphatic: no easy bleeding and no easy bruising Physical Exam Constitutional: WD/WN, vitals as above Eyes: + anicteric sclerae Respiratory: normal respiratory effort, lungs clear to auscultation Cardiovascular: RRR, no murmur, no edema Gastrointestinal (Abdomen): Inspection/Auscultation: abdomen normal to inspection and normal bowel sounds; abdomen not distended Percussion/Palpation: abdomen soft; no guarding + mild - moderate upper abd pain, no rebound, guarding, distention Skin: no rashes, warm and dry Psychiatric: A+Ox3, euthymic affect Results & Data ([facility]) Vital Signs (Past 12 Hours) Vital Signs Temp Pulse Pulse Pulse Resp BP BP 08/31/20 07:35 36.5 C 85 20 116/73 08/31/20 07:00 90 08/31/20 04:06 36.7 C 94 H 18 121/70 08/31/20 02:00 82 08/31/20 01:47 36.9 C 99 H 18 145/90 H 08/31/20 01:00 88 12 124/87 08/31/20 00:30 96 H 12 104/61 08/31/20 00:00 94 H 14 104/64 08/30/20 23:30 96 H 12 109/68 08/30/20 23:00 98 H 15 124/76 08/30/20 22:30 92 H 13 116/75 08/30/20 22:10 96 H 14 08/30/20 22:05 100 H 13 134/87 08/30/20 22:00 92 H 12 08/30/20 21:50 93 H 14 08/30/20 21:40 92 H 19 08/30/20 21:30 101 H 08/30/20 21:20 95 H 21 08/30/20 21:10 89 13 08/30/20 21:03 93 H 20 08/30/20 20:50 104 H 18 08/30/20 20:40 96 H 16 Pulse Ox 08/31/20 07:35 95 08/31/20 07:00 08/31/20 04:06 94 08/31/20 02:00 08/31/20 01:47 91 08/31/20 01:00 94 08/31/20 00:30 96 08/31/20 00:00 95 08/30/20 23:30 96 08/30/20 23:00 96 08/30/20 22:30 99 08/30/20 22:10 08/30/20 22:05 08/30/20 22:00 08/30/20 21:50 08/30/20 21:40 08/30/20 21:30 08/30/20 21:20 08/30/20 21:10 08/30/20 21:03 08/30/20 20:50 94 08/30/20 20:40 95 Laboratory Results 08/31/20 08/31/20 08/31/20 Range/Units 07:18 07:18 07:18 WBC (4.8-10.8) K/uL RBC (4.7-6.1) M/uL Hgb (14.0-18.0) g/dL Hct (42-52) % MCV (80-100) fL MCH (25-34) pg MCHC (32-36) g/dL RDW Std Deviation (36.4-46.3) fL RDW Coeff of Gucci (11.5-14.5) % Plt Count (130-400) K/uL MPV (7.4-10.4) fL Immature Gran % (Auto) % Neut % (Auto) % Lymph % (Auto) % [place] % (Auto) % Eos % (Auto) % Baso % (Auto) % Neut # (Auto) (1.4-6.5) K/uL Lymph # (Auto) (1.2-3.4) K/uL [place] # (Auto) (0.11-0.59) K/uL Eos # (Auto) (0-0.5) K/uL Baso # (Auto) (0-0.2) K/uL Immature Gran # (Auto) (0.00-0.02) K/uL PT (9.0-12.0) Seconds INR (0.9-1.1) Sodium 137 D (136-145) mmol/L Potassium 3.9 (3.5-5.1) mmol/L Chloride 106 (98-107) mmol/L Carbon Dioxide 24 (21-32) mmol/L Anion Gap 7.0 (3-11) BUN 6 L (7-18) mg/dl Creatinine 0.85 (0.6-1.4) mg/dl Est Cr Clr Drug Dosing 131.6 ml/min Est GFR ( Amer) 121.1 Est GFR (Non-Af Amer) 104.5 BUN/Creatinine Ratio 7.3 L (10-20) Glucose 112 H (70-99) mg/dl POC Glucose (70-99) mg/dl Estimat Average Glucose 203 mg/dl Hemoglobin A1c 8.7 H (4.5-5.6) % Calcium 8.9 (8.5-10.1) mg/dl Magnesium 2.1 (1.8-2.4) mg/dl Total Bilirubin 1.4 H (0.2-1) mg/dl Direct Bilirubin 0.5 H (0-0.2) mg/dl AST 110 H (15-37) U/L ALT 98 H (12-78) U/L Alkaline Phosphatase 123 H (45-117) U/L Troponin I < 0.015 (0-0.045) ng/ml NT-Pro-B Natriuret Pep (0-450) pg/ml Total Protein 6.6 D (6.4-8.2) gm/dl Albumin 2.9 L (3.4-5.0) gm/dl Globulin (2.5-4.0) gm/dl Albumin/Globulin Ratio (0.9-2) Triglycerides (0-150) mg/dl Cholesterol (0-200) mg/dl LDL Cholesterol, Calc mg/dl VLDL Cholesterol, Calc mg/dl HDL Cholesterol mg/dl Cholesterol/HDL Ratio Lipase (73-393) U/L Vitamin B12 Pending Urine Color Urine Appearance (Clear) Urine pH (4.5-7.5) Ur Specific [place] (1.000-1.030) Urine Protein (Negative) Urine Glucose (UA) (Negative) Urine Ketones (Negative) Urine Blood (Negative) Urine Nitrite (Negative) Urine Bilirubin (Negative) Urine Urobilinogen (Negative) Ur Leukocyte Esterase (Negative) Urine WBC (Auto) (0-5) /hpf Urine RBC (Auto) (0-4) /hpf U Hyaline Cast (Auto) (0-5) /lpf U Epithel Cells (Auto) (0-5) /lpf Urine Bacteria (Auto) (Negative) Ethyl Alcohol mg/dL (0-3) mg/dl COVID-19 Eval Order SARS-CoV-2, RNA, NAAT (NEGATIVE) 08/31/20 08/31/20 08/31/20 Range/Units 07:18 07:18 06:00 WBC 4.29 L (4.8-10.8) K/uL RBC 4.55 L (4.7-6.1) M/uL Hgb 15.3 (14.0-18.0) g/dL Hct 42.9 (42-52) % MCV 94.3 (80-100) fL MCH 33.6 (25-34) pg MCHC 35.7 (32-36) g/dL RDW Std Deviation 41.8 (36.4-46.3) fL RDW Coeff of Gucci 12.2 (11.5-14.5) % Plt Count 152 (130-400) K/uL MPV 9.3 (7.4-10.4) fL Immature Gran % (Auto) 0.0 % Neut % (Auto) 51.5 % Lymph % (Auto) 35.2 % [place] % (Auto) 8.4 % Eos % (Auto) 4.4 % Baso % (Auto) 0.5 % Neut # (Auto) 2.21 (1.4-6.5) K/uL Lymph # (Auto) 1.51 (1.2-3.4) K/uL [place] # (Auto) 0.36 (0.11-0.59) K/uL Eos # (Auto) 0.19 (0-0.5) K/uL Baso # (Auto) 0.02 (0-0.2) K/uL Immature Gran # (Auto) 0.00 (0.00-0.02) K/uL PT (9.0-12.0) Seconds INR (0.9-1.1) Sodium (136-145) mmol/L Potassium (3.5-5.1) mmol/L Chloride (98-107) mmol/L Carbon Dioxide (21-32) mmol/L Anion Gap (3-11) BUN (7-18) mg/dl Creatinine (0.6-1.4) mg/dl Est Cr Clr Drug Dosing ml/min Est GFR ( Amer) Est GFR (Non-Af Amer) BUN/Creatinine Ratio (10-20) Glucose (70-99) mg/dl POC Glucose 120 H (70-99) mg/dl Estimat Average Glucose mg/dl Hemoglobin A1c (4.5-5.6) % Calcium (8.5-10.1) mg/dl Magnesium (1.8-2.4) mg/dl Total Bilirubin (0.2-1) mg/dl Direct Bilirubin (0-0.2) mg/dl AST (15-37) U/L ALT (12-78) U/L Alkaline Phosphatase (45-117) U/L Troponin I (0-0.045) ng/ml NT-Pro-B Natriuret Pep (0-450) pg/ml Total Protein (6.4-8.2) gm/dl Albumin (3.4-5.0) gm/dl Globulin (2.5-4.0) gm/dl Albumin/Globulin Ratio (0.9-2) Triglycerides (0-150) mg/dl Cholesterol (0-200) mg/dl LDL Cholesterol, Calc mg/dl VLDL Cholesterol, Calc mg/dl HDL Cholesterol mg/dl Cholesterol/HDL Ratio Lipase 108 (73-393) U/L Vitamin B12 Urine Color Urine Appearance (Clear) Urine pH (4.5-7.5) Ur Specific [place] (1.000-1.030) Urine Protein (Negative) Urine Glucose (UA) (Negative) Urine Ketones (Negative) Urine Blood (Negative) Urine Nitrite (Negative) Urine Bilirubin (Negative) Urine Urobilinogen (Negative) Ur Leukocyte Esterase (Negative) Urine WBC (Auto) (0-5) /hpf Urine RBC (Auto) (0-4) /hpf U Hyaline Cast (Auto) (0-5) /lpf U Epithel Cells (Auto) (0-5) /lpf Urine Bacteria (Auto) (Negative) Ethyl Alcohol mg/dL (0-3) mg/dl COVID-19 Eval Order SARS-CoV-2, RNA, NAAT (NEGATIVE) 08/31/20 08/30/20 08/30/20 Range/Units 02:45 22:58 22:58 WBC (4.8-10.8) K/uL RBC (4.7-6.1) M/uL Hgb (14.0-18.0) g/dL Hct (42-52) % MCV (80-100) fL MCH (25-34) pg MCHC (32-36) g/dL RDW Std Deviation (36.4-46.3) fL RDW Coeff of Gucci (11.5-14.5) % Plt Count (130-400) K/uL MPV (7.4-10.4) fL Immature Gran % (Auto) % Neut % (Auto) % Lymph % (Auto) % [place] % (Auto) % Eos % (Auto) % Baso % (Auto) % Neut # (Auto) (1.4-6.5) K/uL Lymph # (Auto) (1.2-3.4) K/uL [place] # (Auto) (0.11-0.59) K/uL Eos # (Auto) (0-0.5) K/uL Baso # (Auto) (0-0.2) K/uL Immature Gran # (Auto) (0.00-0.02) K/uL PT (9.0-12.0) Seconds INR (0.9-1.1) Sodium (136-145) mmol/L Potassium (3.5-5.1) mmol/L Chloride (98-107) mmol/L Carbon Dioxide (21-32) mmol/L Anion Gap (3-11) BUN (7-18) mg/dl Creatinine (0.6-1.4) mg/dl Est Cr Clr Drug Dosing ml/min Est GFR ( Amer) Est GFR (Non-Af Amer) BUN/Creatinine Ratio (10-20) Glucose (70-99) mg/dl POC Glucose 131 H (70-99) mg/dl Estimat Average Glucose mg/dl Hemoglobin A1c (4.5-5.6) % Calcium (8.5-10.1) mg/dl Magnesium (1.8-2.4) mg/dl Total Bilirubin (0.2-1) mg/dl Direct Bilirubin (0-0.2) mg/dl AST (15-37) U/L ALT (12-78) U/L Alkaline Phosphatase (45-117) U/L Troponin I (0-0.045) ng/ml NT-Pro-B Natriuret Pep (0-450) pg/ml Total Protein (6.4-8.2) gm/dl Albumin (3.4-5.0) gm/dl Globulin (2.5-4.0) gm/dl Albumin/Globulin Ratio (0.9-2) Triglycerides (0-150) mg/dl Cholesterol (0-200) mg/dl LDL Cholesterol, Calc mg/dl VLDL Cholesterol, Calc mg/dl HDL Cholesterol mg/dl Cholesterol/HDL Ratio Lipase (73-393) U/L Vitamin B12 Urine Color Urine Appearance (Clear) Urine pH (4.5-7.5) Ur Specific [place] (1.000-1.030) Urine Protein (Negative) Urine Glucose (UA) (Negative) Urine Ketones (Negative) Urine Blood (Negative) Urine Nitrite (Negative) Urine Bilirubin (Negative) Urine Urobilinogen (Negative) Ur Leukocyte Esterase (Negative) Urine WBC (Auto) (0-5) /hpf Urine RBC (Auto) (0-4) /hpf U Hyaline Cast (Auto) (0-5) /lpf U Epithel Cells (Auto) (0-5) /lpf Urine Bacteria (Auto) (Negative) Ethyl Alcohol mg/dL (0-3) mg/dl COVID-19 Eval Order Covid19 IDNow [facility] SARS-CoV-2, RNA, NAAT NEGATIVE (NEGATIVE) 08/30/20 08/30/20 08/30/20 Range/Units 19:31 19:31 19:31 WBC (4.8-10.8) K/uL RBC (4.7-6.1) M/uL Hgb (14.0-18.0) g/dL Hct (42-52) % MCV (80-100) fL MCH (25-34) pg MCHC (32-36) g/dL RDW Std Deviation (36.4-46.3) fL RDW Coeff of Gucci (11.5-14.5) % Plt Count (130-400) K/uL MPV (7.4-10.4) fL Immature Gran % (Auto) % Neut % (Auto) % Lymph % (Auto) % [place] % (Auto) % Eos % (Auto) % Baso % (Auto) % Neut # (Auto) (1.4-6.5) K/uL Lymph # (Auto) (1.2-3.4) K/uL [place] # (Auto) (0.11-0.59) K/uL Eos # (Auto) (0-0.5) K/uL Baso # (Auto) (0-0.2) K/uL Immature Gran # (Auto) (0.00-0.02) K/uL PT (9.0-12.0) Seconds INR (0.9-1.1) Sodium 130 L (136-145) mmol/L Potassium 3.9 (3.5-5.1) mmol/L Chloride 95 L (98-107) mmol/L Carbon Dioxide 22 (21-32) mmol/L Anion Gap 13.0 H (3-11) BUN 9 (7-18) mg/dl Creatinine 1.13 (0.6-1.4) mg/dl Est Cr Clr Drug Dosing 99.3 ml/min Est GFR ( Amer) 89.8 Est GFR (Non-Af Amer) 77.5 BUN/Creatinine Ratio 7.6 L (10-20) Glucose 248 H (70-99) mg/dl POC Glucose (70-99) mg/dl Estimat Average Glucose mg/dl Hemoglobin A1c (4.5-5.6) % Calcium 10.0 (8.5-10.1) mg/dl Magnesium 2.1 (1.8-2.4) mg/dl Total Bilirubin 1.5 H (0.2-1) mg/dl Direct Bilirubin (0-0.2) mg/dl AST 52 H (15-37) U/L ALT 81 H (12-78) U/L Alkaline Phosphatase 99 (45-117) U/L Troponin I < 0.015 (0-0.045) ng/ml NT-Pro-B Natriuret Pep 19 (0-450) pg/ml Total Protein 8.6 H (6.4-8.2) gm/dl Albumin 3.9 (3.4-5.0) gm/dl Globulin 4.7 H (2.5-4.0) gm/dl Albumin/Globulin Ratio 0.8 L (0.9-2) Triglycerides 166 H (0-150) mg/dl Cholesterol 175 (0-200) mg/dl LDL Cholesterol, Calc 63 mg/dl VLDL Cholesterol, Calc 33 mg/dl HDL Cholesterol 79 mg/dl Cholesterol/HDL Ratio 2 Lipase 182 (73-393) U/L Vitamin B12 Urine Color Urine Appearance (Clear) Urine pH (4.5-7.5) Ur Specific [place] (1.000-1.030) Urine Protein (Negative) Urine Glucose (UA) (Negative) Urine Ketones (Negative) Urine Blood (Negative) Urine Nitrite (Negative) Urine Bilirubin (Negative) Urine Urobilinogen (Negative) Ur Leukocyte Esterase (Negative) Urine WBC (Auto) (0-5) /hpf Urine RBC (Auto) (0-4) /hpf U Hyaline Cast (Auto) (0-5) /lpf U Epithel Cells (Auto) (0-5) /lpf Urine Bacteria (Auto) (Negative) Ethyl Alcohol mg/dL 149.3 H (0-3) mg/dl COVID-19 Eval Order SARS-CoV-2, RNA, NAAT (NEGATIVE) 08/30/20 08/30/20 08/30/20 Range/Units 19:31 19:31 18:54 WBC 6.98 (4.8-10.8) K/uL RBC 5.12 (4.7-6.1) M/uL Hgb 17.7 (14.0-18.0) g/dL Hct 47.6 (42-52) % MCV 93.0 (80-100) fL MCH 34.6 H (25-34) pg MCHC 37.2 H (32-36) g/dL RDW Std Deviation 40.6 (36.4-46.3) fL RDW Coeff of Gucci 12.0 (11.5-14.5) % Plt Count 202 (130-400) K/uL MPV 9.4 (7.4-10.4) fL Immature Gran % (Auto) 0.1 % Neut % (Auto) 68.1 % Lymph % (Auto) 18.9 % [place] % (Auto) 9.9 % Eos % (Auto) 2.6 % Baso % (Auto) 0.4 % Neut # (Auto) 4.75 (1.4-6.5) K/uL Lymph # (Auto) 1.32 (1.2-3.4) K/uL [place] # (Auto) 0.69 H (0.11-0.59) K/uL Eos # (Auto) 0.18 (0-0.5) K/uL Baso # (Auto) 0.03 (0-0.2) K/uL Immature Gran # (Auto) 0.01 (0.00-0.02) K/uL PT 11.1 (9.0-12.0) Seconds INR 1.1 (0.9-1.1) Sodium (136-145) mmol/L Potassium (3.5-5.1) mmol/L Chloride (98-107) mmol/L Carbon Dioxide (21-32) mmol/L Anion Gap (3-11) BUN (7-18) mg/dl Creatinine (0.6-1.4) mg/dl Est Cr Clr Drug Dosing ml/min Est GFR ( Amer) Est GFR (Non-Af Amer) BUN/Creatinine Ratio (10-20) Glucose (70-99) mg/dl POC Glucose (70-99) mg/dl Estimat Average Glucose mg/dl Hemoglobin A1c (4.5-5.6) % Calcium (8.5-10.1) mg/dl Magnesium (1.8-2.4) mg/dl Total Bilirubin (0.2-1) mg/dl Direct Bilirubin (0-0.2) mg/dl AST (15-37) U/L ALT (12-78) U/L Alkaline Phosphatase (45-117) U/L Troponin I (0-0.045) ng/ml NT-Pro-B Natriuret Pep (0-450) pg/ml Total Protein (6.4-8.2) gm/dl Albumin (3.4-5.0) gm/dl Globulin (2.5-4.0) gm/dl Albumin/Globulin Ratio (0.9-2) Triglycerides (0-150) mg/dl Cholesterol (0-200) mg/dl LDL Cholesterol, Calc mg/dl VLDL Cholesterol, Calc mg/dl HDL Cholesterol mg/dl Cholesterol/HDL Ratio Lipase (73-393) U/L Vitamin B12 Urine Color [place] Urine Appearance Clear (Clear) Urine pH 5.0 (4.5-7.5) Ur Specific [place] 1.041 H (1.000-1.030) Urine Protein 1+ H (Negative) Urine Glucose (UA) 3+ H (Negative) Urine Ketones 3+ H (Negative) Urine Blood Negative (Negative) Urine Nitrite Negative (Negative) Urine Bilirubin 1+ H (Negative) Urine Urobilinogen Negative (Negative) Ur Leukocyte Esterase Negative (Negative) Urine WBC (Auto) 0 (0-5) /hpf Urine RBC (Auto) 0-4 (0-4) /hpf U Hyaline Cast (Auto) 5-10 H (0-5) /lpf U Epithel Cells (Auto) 5-10 H (0-5) /lpf Urine Bacteria (Auto) Negative (Negative) Ethyl Alcohol mg/dL (0-3) mg/dl COVID-19 Eval Order SARS-CoV-2, RNA, NAAT (NEGATIVE) (1) Abdominal pain Abdominal location: upper abdomen, unspecified Qualified Code(s): R10.10 - Upper abdominal pain, unspecified
[2020-08-31 08:37] LABS: Estimated Average Glucose 203 mg/dl; Hemoglobin A1C 8.7 % (4.5-5.6)
[2020-08-31 08:39] LABS: Alanine Aminotransferase 98 U/L (12-78); Albumin Level 2.9 gm/dl (3.4-5.0); Aspartate Aminotransferase 110 U/L (15-37); BUN Creatinine Ratio 7.3 (10-20); Bilirubin Direct 0.5 mg/dl (0-0.2); Blood Urea Nitrogen 6 mg/dl (7-18); Calcium 8.9 mg/dl (8.5-10.1); Carbon Dioxide 24 mmol/L (21-32); Chloride 106 mmol/L (98-107); Creatinine Clr Calc Pharmacy 131.6 ml/min; Est GFR (African American) 121.1; Est GFR (Non-African American) 104.5; Glucose 112 mg/dl (70-99); Magnesium 2.1 mg/dl (1.8-2.4); Potassium 3.9 mmol/L (3.5-5.1); Sodium 137 mmol/L (136-145)
[2020-08-31 08:44] LABS: Alkaline Phosphatase 123 U/L (45-117); Bilirubin,Total 1.4 mg/dl (0.2-1); Total Protein 6.6 gm/dl (6.4-8.2); Troponin I < 0.015 ng/ml (0-0.045)
[2020-08-31] MEDS ORDERED: PARoxetine HCL 20 MG TAB PO SCH (09:00)
[2020-08-31] MEDS ORDERED: PANTOprazole 40 MG TAB PO SCH (09:00)
--- NOTE | 2020-08-31 11:24 | Electrocardiogram Report ---
Test Reason : Blood Pressure : / mmHG Vent. Rate : 105 BPM Atrial Rate : 105 BPM P-R Int : 146 ms QRS Dur : 074 ms QT Int : 332 ms P-R-T Axes : 071 067 063 degrees QTc Int : 438 ms Sinus tachycardia Otherwise normal ECG When compared with ECG of 03-APR-2020 13:43, No significant change was found Confirmed by Danilo Grimes ([id number]) on 08/31/2020 11:23:36 AM Referred By: REFERRED SELF Confirmed By:Jere Grimes
[2020-08-31] MEDS: INSULIN ASPART 100 UNITS/ML 3 ML PEN SC SCH ×2 (12:09→18:30)
[2020-08-31] MEDS ORDERED: Nursing to Pharmacy Communication SCH (14:15)
--- NOTE | 2020-08-31 14:22 | Hospitalist Progress Note ---
Date of Service August 31, 2020 Assessment & Plan (1) Alcohol abuse: Elevated ethanol level on admission. Record review reveals a history of alcohol abuse and recurrent admissions for alcoholic pancreatitis, similar to this presentation. The patient admits to drinking alcohol at a level of 6-8 beers daily. Record review also reveals a h/o substance abuse and the patient is currently chewing tobacco. (2) Alcohol intoxication: Possible alcohol intoxication on admission, no evidence of alcohol withdrawal at this time. Patient is able to answer questions appropriately during this daily evaluation. (3) Acute alcoholic pancreatitis: Epigastric tenderness present. Normal lipase. Some report of vomiting and intolerance of PO prior to arrival, but now he is reporting some hunger presence. (4) DM type 2 (diabetes mellitus, type 2): Patient reports noncompliance with treatment. He reports using insulin "occasionally" without a clear pattern. No clear reason given for this. A1C 8.7. (5) Tobacco use: patient reports chewing tobacco, and is currently using (6) Mood disorder: h/o Bipolar disorder per prior records. (7) DVT prophylaxis: SCDs/ambulation Full Code Dispo-to home when medically stable Unfortunately, the patient felt that without intravenous dilaudid, he would not be able to stay in the hospital and left AMA. I explained to him that I was not comfortable with his history of substance abuse and his current level of alcohol intoxication to continue with this but if his pain was severe enough, we may still consider oral narcotic pain medications. He was sitting comfortably with a tobacco chew in asking for food with a mild exam and a low lipase level. He was hemodynamically stable. This is a recurrent issue for this patient who needs to quit alcohol and who now understands the process and what is available to him. He told me that "they" always try to switch him off the dilaudid but have to go right back to giving it to him because "it's the only thing that works." I explained to him again that I don't agree for many reasons, and will not be continuing this. He became angry, something about "you people" and I left the room. He was given an oxycodone 5mg around 3:30pm and I was notified around 6:30pm that he wanted to leave the hospital. Latonya Palomo DO [facility] Hospitalist Admission and Anticipated Discharge Date Admission Date: August 31, 2020 Subjective 44 yo alcoholic man who presented with epigastric pain consistent with pancreatitis -record review reveals alcohol abuse issues and a h/o substance abuse issues in the past. -the patient is also addicted to chewing tobacco and currently has a plug in his mouth -he reports pain and points to his epigastric area and describes this radiating throughout his midsection. -he reports this as pain that he has experienced for previous admissions, and record review reveals most recent admission for recurrent pancreatitis in Apr 2020, approx 4 months ago. -he is requesting something to eat. -I noted his very regular request for hydromorphone IV and informed him that we would be moving to oral medications at this point -he became aggressive and upset saying that he was unwilling to try that because of previous admissions, "they always try something else and then end up going back to the dilaudid anyway" -I told him it was my recommendation at this time that we avoid hydromorphone IV, and he argued that he wanted to leave. I told him that he absolutely could if that was his wish. Review of Systems Review of Systems: All systems reviewed & are unremarkable except as noted in Subjective Physical Exam Physical Exam: CONSTITUTIONAL: WNWD, vitals as above, generally well- appearing EYES: normal conjunctivae, no scleral icterus ENT: external ear and nose normal, poor dentition and tobacco in mouth with tobacco juice present across teeth NECK: trachea midline RESPIRATORY: clear to auscultation bilaterally, no crackles, rales or wheezes, normal respiratory effort CARDIOVASCULAR: regular rate and rhythm, S1 and 2 heard without murmurs, gallops or rubs, no JVD, no peripheral edema CHEST: inspection of chest was normal GASTROINTESTINAL: soft, TTP in epigastric area, nondistended, no guarding. MUSCULOSKELETAL: strength 5/5 throughout, head is normocephalic and atraumatic, able to sit up independently in bed without issues. SKIN: warm and dry NEUROLOGIC: CN 2-12 grossly intact, normal cognition, normal speech, no gross focal deficits. PSYCHIATRIC: alert cooperative and oriented, answering questions appropriately. Results & Data Results & Data ([facility]) Vital Signs (Past 12 Hours) Vital Signs Temp Pulse Pulse Resp BP Pulse Ox 08/31/20 11:31 36.8 C 89 20 106/67 96 08/31/20 07:35 36.5 C 85 20 116/73 95 08/31/20 07:00 90 08/31/20 04:06 36.7 C 94 H 18 121/70 94 Laboratory Results Short CBC 08/30/20 08/31/20 Range/Units 19:31 07:18 WBC 6.98 4.29 L (4.8-10.8) K/uL Hgb 17.7 15.3 (14.0-18.0) g/dL Hct 47.6 42.9 (42-52) % Plt Count 202 152 (130-400) K/uL BMP 08/30/20 08/31/20 19:31 07:18 Sodium 130 L 137 D Potassium 3.9 3.9 Chloride 95 L 106 Carbon Dioxide 22 24 BUN 9 6 L Creatinine 1.13 0.85 Glucose 248 H 112 H Calcium 10.0 8.9 Cardiac Enzymes 08/30/20 08/31/20 Range/Units 19:31 07:18 Troponin I < 0.015 < 0.015 (0-0.045) ng/ml Liver Function 08/30/20 08/31/20 Range/Units 19:31 07:18 Total Bilirubin 1.5 H 1.4 H (0.2-1) mg/dl Direct Bilirubin 0.5 H (0-0.2) mg/dl AST 52 H 110 H (15-37) U/L ALT 81 H 98 H (12-78) U/L Alkaline Phosphatase 99 123 H (45-117) U/L Albumin 3.9 2.9 L (3.4-5.0) gm/dl Urine 08/30/20 Range/Units 18:54 Urine Color [place]on Urine Appearance Clear (Clear) Urine pH 5.0 (4.5-7.5) Ur Specific [place] 1.041 H (1.000-1.030) Urine Protein 1+ H (Negative) Urine Glucose (UA) 3+ H (Negative) Medications Administered Current Inpatient Medications Acetaminophen (Acetaminophen 325 Mg Tab) 650 mg PO Q4H PRN PRN Reason: Pain or Fever Stop: 09/30/20 01:46 Gabapentin (Gabapentin 600 Mg Tab) 600 mg PO Q8H RAMOS Stop: 09/01/20 14:01 Gabapentin (Gabapentin 600 Mg Tab) 600 mg PO Q12H RAMOS Stop: 09/02/20 14:01 Gabapentin (Gabapentin 600 Mg Tab) 600 mg PO Q24H RAMOS Stop: 09/03/20 14:01 Hydromorphone HCl (Hydromorphone Inj 0.5 Mg/0.5 Ml Syr) 0.5 mg IV Q3H PRN PRN Reason: Pain Stop: 09/14/20 01:46 Last Admin: 08/31/20 12:44 Dose: 0.5 mg Documented by: Thiamine HCl 100 mg/ Syringe 10 mls @ 2 mls/min IV QAM [facility] Stop: 09/30/20 08:59 Last Admin: 08/31/20 08:32 Dose: Not Given Documented by: Folic Acid 1 mg/ Syringe 10 mls @ 5 mls/min IV QAM [facility] Stop: 09/30/20 08:59 Last Admin: 08/31/20 08:33 Dose: Not Given Documented by: Lorazepam (Ativan) 3 mg in 6 mls @ 4 mls/min IV ONCE PRN; Protocol PRN Reason: EtOH Withdrawl AWSS Score >=10 Stop: 09/30/20 01:46 Lorazepam (Ativan) 1 mg in 2 mls @ 2 mls/min IV UD PRN; Protocol PRN Reason: EtOH Withdrawl AWSS Score 6,7 Stop: 09/30/20 01:46 Lorazepam (Ativan) 2 mg in 4 mls @ 4 mls/min IV UD PRN; Protocol PRN Reason: EtOH Withdrawl AWSS Score 8,9 Stop: 09/30/20 01:46 Lactated Ringer's (Lr) 1,000 mls @ 200 mls/hr IV .Q5H RAMOS Stop: 09/30/20 02:14 Last Admin: 08/31/20 10:00 Dose: 200 mls/hr Documented by: Insulin Aspart (Insulin Aspart 100 Units/Ml 3 Ml Pen) 0 units SC Q6 RAMOS Stop: 09/30/20 11:59 Last Admin: 08/31/20 12:09 Dose: Not Given Documented by: Nitroglycerin (Nitroglycerin Sl 0.4 Mg/Tab Tab) 0.4 mg SL UD PRN PRN Reason: Chest Pain Stop: 09/30/20 01:46 Ondansetron HCl (Ondansetron Inj 2 Mg/Ml 2 Ml Vial) 4 mg IV Q6H PRN PRN Reason: Nausea Stop: 09/30/20 01:46 Last Admin: 08/31/20 12:44 Dose: 4 mg Documented by: Pantoprazole Sodium (Pantoprazole 40 Mg Tab) 40 mg PO [facility] Stop: 09/30/20 08:59 Last Admin: 08/31/20 08:31 Dose: 40 mg Documented by: Paroxetine HCl (Paroxetine Hcl 20 Mg Tab) 20 mg PO [facility] Stop: 09/30/20 08:59 Last Admin: 08/31/20 08:30 Dose: 20 mg Documented by: (1) Alcohol intoxication Complication of substance-induced condition: uncomplicated Qualified Code(s): F10.920 - Alcohol use, unspecified with intoxication, uncomplicated
[2020-08-31] MEDS ORDERED: oxyCODONE HCL IR 5 MG TAB (IMMEDIATE RELEASE) PO PRN (14:54)
[2020-08-31] MEDS ORDERED: KETOROLAC 30 MG/ML VIAL IV PRN (14:54)
[2020-08-31 15:30] VITALS: TEMP 97.7
[2020-08-31 19:08] VITALS: BP 138/71; PULSE 68; O2SAT 94
--- NOTE | 2020-08-31 19:28 | Discharge Summary ---
Date of Service August 31, 2020 Admission HPI Per Admitting Provider HISTORY OF PRESENT ILLNESS: This is a 44-year-old male with past medical history significant for recurrent admissions for alcoholism and pancreatitis, bipolar disorder, anxiety, diabetes, currently not taking any medications, chronic pain, Ernae's esophagus, history of PE, who lives with his mother, comes because of complaining of abdominal pain and left flank pain. The pain started about 2-3 days ago, very severe. He has couple of episodes of vomiting, has some diarrhea. Denies any blood in stool or black stools. Urine is dark. He says since yesterday he is also getting chest pain on and off, but currently there is no chest pain. Denies any headache, no blurred vision, no earache, no runny nose, no sore throat, no loss of sense of smell or taste. No exposure to any COVID patients. No cough, no fevers. Still drinking alcohol, he says he is drinking 6-8 beers every day and chews tobacco. Admission Exam Per Admitting Provider PHYSICAL EXAMINATION: GENERAL: The patient is of moderate build, not in acute distress. VITAL SIGNS: Temperature 36.4, pulse 96, respiratory rate 12, blood pressure 104/61, oxygen 96% on room air. HEENT: Pupils equal, round, reactive to light. Oral mucosa moist. NECK: No JVD, no neck masses. CARDIOVASCULAR: S1, S2, regular rate and rhythm, no murmur, no gallop. RESPIRATORY SYSTEM: Normal AP diameter. No accessory muscle use. No wheezing, no crackles. ABDOMEN: Soft, bowel sounds present. Diffuse tenderness. Mild guarding, no rigidity. No distention. CENTRAL NERVOUS SYSTEM: Cranial nerves II-XII grossly intact. Nonfocal. EXTREMITIES: No edema, no erythema. Principal Diagnosis Acute alcoholic pancreatitis Alcohol abuse Alcohol intoxication Uncontrolled diabetes myelitis secondary to noncompliance Tobacco use Discharge Exam see progress note Discharge Data Allergies Allergy/AdvReac Type Severity Reaction Status Date / Time No Known Allergies Allergy Verified 08/30/20 19:27 Consultations 08/30/20 23:37 ED Decision to Admit Stat 08/31/20 01:47 Consult Case Management - Discharge Planning Routine 08/31/20 08:00 Consult Gastroenterology Routine Ordered Studies 08/30/20 20:35 CT abd pelvis IV con only Urgent Hospital Course (1) Alcohol abuse: (2) Alcohol intoxication: (3) Acute alcoholic pancreatitis: (4) DM type 2 (diabetes mellitus, type 2): (5) Tobacco use: (6) Mood disorder: Mr. Clark is a 44-year-old man with a history of recurrent alcoholic pancreatitis and hospitalizations due to this. He was recently discharged for this issue from this hospital on April 07, 2020. He presented to the emergency room with chest abdomen and flank pain with radiation to his back. He also reported loss of appetite and nausea without vomiting. He presented with tachycardia but was not septic. Initial blood pressure was 142/99 and he was oxygenating well on room air. On physical exam he appeared alert, uncomfortable, in moderate distress, nontoxic and pacing around the room. Abdomen was soft with tenderness across epigastric and bilateral upper quadrants, distention, no masses rebound or guarding present left CVA tenderness was also present physical exam was otherwise within normal limits. Alcohol abuse was frankly discussed with the ER physician. Urinalysis was negative for infection. Lipase was 182, triglycerides 166, sodium 130, potassium 3.9, anion gap 13, creatinine 1.13 with an estimated GFR 77, glucose 248, AST 52, ALT 81, alkaline phosphatase 99, troponin less than 0.015, total protein 8.6. Although reporting no vomiting to the ER physician he reported a couple episodes of vomiting to the hospitalist physician. Noncompliance with medications is noted throughout the record as is a history of bipolar disorder, anxiety, chronic pain and a history of substance abuse. He reported drinking 6-8 beers daily and chewing tobacco. White blood cell count was 6.9, hemoglobin 17.7, hematocrit 47.6, platelets 202, INR 1.1, ethyl alcohol 145, SARS-CoV-[address] of the abdomen and pelvis was performed with IV contrast revealing borderline hepatic steatosis, patent hepatic and portal veins, a surgically absent gallbladder, atrophy of the distal pancreatic body and tail, minimal infiltration of the fat surrounding the pancreatic head, a finding unchanged from a prior study, mild bladder wall thickening. Radiology findings were consistent with borderline hepatic steatosis, no evidence of bowel obstruction or free air, stable minimal infiltration of the fat surrounding the pancreatic head consistent with possible mild pancreatitis, upper abdominal varices, mild prostatomegaly and mild bladder wall thickening with no evidence of hydronephrosis. He was kept on bowel rest given intravenous fluids and placed on an alcohol withdrawal protocol including the use of gabapentin. For his hyperglycemia he was placed on an insulin sliding scale. Regarding his initial report of chest pain, his EKG was unremarkable revealing sinus tachycardia and no evidence of ischemia and his initial troponin was negative. Chest pain was intermittent with a repeat troponin several hours later that was again negative. The clinical picture was inconsistent with ACS. GI was consulted and reported suspected abdominal pain was related to chronic pancreatitis versus ongoing alcohol abuse. Elevated transaminases were likely related to ongoing alcohol abuse. Recommendations included considering a trial of clear liquids and advancing diet as tolerated continuing a daily PPI trending LFTs and avoiding NSAIDs. The importance of alcohol cessation was discussed in outpatient counseling through program such as alcoholics anonymous was recommended. The patient responded that he was not interested in rehabilitation. He continued to utilize the intravenous hydromorphone option every 3 hours x 4 doses since midnight until evaluated by the hospitalist that afternoon. The patient appeared overall improved, was asking for food, was chewing tobacco, and was reportedly feeling better. Abdominal exam revealed a soft nondistended abdomen with persistent epigastric tenderness. Physical exam was otherwise within normal limits and the patient was nontoxic-appearing. The decision was made to advance his diet and stop intravenous hydromorphone. Unfortunately, the patient felt that without intravenous Hydromorphone, he would not be able to stay in the hospital and left AGAINST MEDICAL ADVICE. He was offered oral narcotics only as needed for severe pain after becoming upset that this was being stopped. It was explained to him that with his history of substance abuse and continued alcohol abuse including recent intoxication in the last 24 hours, this was not a recommended therapy. He became upset and decided to leave a few hours later. Close primary care followup is recommended to encourage compliance with treatment of diabetes wtih uncontrolled A1C, and to continue encourage patient to quit using alcohol and tobacco. Total Time Total Time Spent Total Time Spent (In Minutes): 30 Total Time Includes: Examination of the Patient, Discharge Planning, Medication Reconciliation and Communication With Other Providers Discharge Plan Discharge Items Patient Disposition: Against Medical Advice Reason For Visit: ABDOMINAL PAIN, CHEST PAIN Activity: Resume your previous activity Non-emergency contact: Primary Care Provider Follow-up/Referrals: Dhiraj Myers, [Primary Care Provider] - Pending Studies at Discharge: No Stand-Alone Forms: My [facility] Medications and DC Order Prescriptions: Continued pantoprazole 40 mg tablet,delayed release (DR/EC) 40 mg PO QAM RF: 0 paroxetine HCl 20 mg tablet 20 mg PO QAM RF: 0 Discharge Orders: Discharge Order (Routine); Ordered 08/31/20 Ordered By: Latonya Bowden/Other Patient Handouts: Managing Type 2 Diabetes, 5 Steps for Eating Healthier Admission Data Admit Date/Time: 08/31/20 00:58 Attending Provider: Latonya Palomo Admit Provider: Jed Sousa Primary Care Provider: Dhiraj Myers Other Providers: Jed Sousa ; Snajay Bass
[2020-08-31] MEDS ORDERED: GABAPENTIN 600 MG TAB PO SCH (22:00)
[2020-09-02] MEDS ORDERED: GABAPENTIN 600 MG TAB PO SCH (02:00)
[2020-09-03] MEDS ORDERED: GABAPENTIN 600 MG TAB PO SCH (14:00)
== END 2020-08-31 19:15 | disposition left against medical advice (07) | DRG 440 ==
LOC: ED 18:44 → 2W 08-31 00:58

== ENCOUNTER 2020-10-17 02:11 | Inpatient (IN) ==
[2020-10-17] MEDS ORDERED: HYDROmorphone INJ 1 MG/ML SYRINGE IV STA ×2 (02:27→02:58)
[2020-10-17] MEDS ORDERED: MULTI-VITAMIN INFUSION 10 ML, THIAMINE HCL 100 MG, FOLIC ACID 1 MG in SODIUM CHLORIDE 0... IV ONE (02:27)
--- NOTE | 2020-10-17 02:32 | Emergency Department Note ---
Impression & Plan Acute alcoholic pancreatitis, Acute hyperglycemia, Elevated LFTs ED Provider Note Name: RIKY MELTON Age: 44 Sex: M Arrives Via: Ambulance Informant: Patient ED Provider: Jose Clemente MD Chief Complaint: Abdoinal pain Impression: Acute Alcoholic Pancreatitis Acute Hyperglycemia Elevated LFTs Medical Decision Makin yr old male alcoholic with recurrent pancreatitis who also has history of DMII, GERD, Mood Disorder, PE (off anticoag), amongst others arrives for increasing epigastric pain. He has been drinking increasingly more over the last week s/p of family member. No current suicidal/homicidal ideation. TTP epigastrium though no overt surgical abdomen by exam at this time. Fluid resus and pain control ordered. Labs with elevated Lipase, LFTs, glucose. Mild acidosis though likely not DKA. Given degree dehydration by exam felt fluid resus prior to starting insulin indicated. Hospitalist involved early in patient care. He was given further pain control and fluids. No evidence acute infection as cause given likely etoh related. Prior Medical Record and Triage/Nursing Notes reviewed by Me Additional history obtained from chart, ems Differentials: Pancreatitis, hepatitis, gerd, aortic pathology, biliary pathology, ischemia, amongst other pathologies. Vital Signs: reviewed and remarkable for tachy Interventions: saline lock, nss bolus, banana bag iv, dilaudid iv Labs:Reviewed and remarkable for elevated lipasea/lefts Imaging:X ray results are stated below per my interpretation: Chest: 1 view: No infiltrate, no effusion, normal cardiac border. EKG:Per My Interpretation: Indication Epigastric pain: Sinus tach 103 bpm, qtc 434. No Ectopy. No Ischemia. Compared to EKG 08/30/20, no significant changes. Cardiac/Tele Monitoring: Cardiac Monitoring: An Order was placed for continuous cardiac monitoring. The monitor shows a rate of 110 with a sinus tach rhythm. Consults:Dr Kelsea Henson Hospitalist Plan: Disposition:Hospitalization. Condition: Good History of Present Illness:44 yr old male arrives for evaluation of epigastric pain. Patient with long history of alcoholism, alcoholic pancreatitis and frequent hospitalizations for pancreatitis. Notes he started drinking heavily (beer) again last week after sister in law . Admits he can't regularly go more than a day without alcohol or else he develops severe tremors. 2 days ago epigastric pain began. Stabbing/crushing pain radiating to back and right flank. Worse with movement, better with laying still. Morphine 6mg IV by EMS with mild improvement in pain. Associated nausea, vomiting. No fevers, chills, cp, sob, syncope, urinary symptoms, bowel changes, leg swelling, rashes, bruising, headache, neck pain, nor other symptoms. Denies covid symptoms. No recent trauma/injury ROS: See above HPI for pertinent positives & negatives. A total of 10 systems reviewed and were otherwise negative. Past Medical History:See Below Past Surgical History:See Below Family History:See Below Social History:See Below Home Medications:Pantoprazole, Paroxetine Allergies:NKDA Vitals:Blood Pressure: 146/95, Pulse 118, RR 18, T 36.7C, O2 94% on RA Physical Exam: GENERAL: Patient is dehydrated and uncomfortable appearing and in moderate distress. EYES: No scleral icterus, unremarkable pupils. ENT: Mucous membranes dry, no nasal congestion. NECK: No masses appreciated, nomeningismus, trachea is midline. RESPIRATORY: No dyspnea. Clear to auscultation and equal bilaterally. No wheeze, no rhonchi. CARDIOVASCULAR: Tachy.No murmurs, rubs, gallops appreciated. GASTROINTESTINAL: TTP epigastrium otherwise abdomen soft, non-tender, no peritonitis.Bowel sounds positive.No masses appreciated. BACK: No midline tenderness, no CVA tenderness EXTREMITIES: Normal motion all extremities, no cyanosis, no edema. NEUROLOGIC: Alert and oriented, no acute motor or sensory deficits, no focal weakness, cranial nerves grossly intact. SKIN: No rash, no jaundice, no diaphoresis. PSYCH: Appropriate GCS: 15 ED Course: Times/Reassessments: gradually improving pain, agreeable hospitalization Jose Clemente MD Past Med/Surg History Medical History (Updated 10/17/20 @ 23:28 by Jose Clemente MD) Abdominal pain Acute hyperglycemia Alcohol abuse (Unknown) Alcohol abuse Renae's esophagus (Unknown) "per EGD 11/23/09 " On 05/31/11 09:06 Martinez Jose wrote "per EGD 11/23/09 " Chest pain Depression Depression DM type 2 (diabetes mellitus, type 2) Encounter for alcohol abuse counseling and surveillance Encounter for pre-operative examination Encounter for tobacco use cessation counseling H/O acute pancreatitis "recurrent" History of substance abuse Hyperglycemia Intentional drug overdose Lumbar degenerative disc disease Mood disorder Mood disorder Neuropathy Pancreatitis Panic disorder Pulmonary embolism Suicidal ideation Suicidal ideation Suicide attempt Surgical History H/O esophagogastroduodenoscopy "EGD 11/23/2009- mild gastritis, suspicious for gastroparesis, Z-line irregular EUS 02/04/2010- mild chronic pancreatitis, pronounced cholesterolosis of gallbladder, no biliary dilation or stones, probable gastroparesis EGD 10/31/2014- gastritis" S/P lumbar fusion L4-S1 2014 Family History Father Alcohol abuse Social History Smoking Status: Never smoker Tobacco Type: Smokeless Tobacco (Dip or Chew) Second Hand Exposure: No; Do You Dip or Chew Tobacco: Yes; Tobacco Cessation Education Requested by Patient: No Hx Alcohol Use: Yes Alcohol type: beer Hx Substance Use: No Preferred Language: Thai Communication Ability: Effective Manager Fine Required: No Beliefs That Will Affect Care: None marital status: Current Living Situation: Family Current Living Situation Comment: with mother Other Information That Helps Us Care for You: No Feels Safe at Home: Yes Safety Concerns: Feels Safe At This Time Assistive Devices: None Allergies Allergies Allergy/AdvReac Type Severity Reaction Status Date / Time No Known Allergies Allergy Verified 10/17/20 02:35 Home Meds Home Medications Medication Instructions Recorded Confirmed paroxetine HCl 20 mg PO QAM 12/20/19 10/17/20 pantoprazole 40 mg PO QAM 01/18/20 10/17/20 Results & Data (ED) Vital Signs Vital Signs - 24 hr 10/17/20 02:16 10/17/20 03:07 Temperature 36.7 C Temperature Source Oral Pulse Rate 118 H Pulse Rate [Apical] 109 H Pulse Rhythm Regular Pulse Strength Normal Respiratory Rate 18 20 Respiratory Effort / Characteristics Non-Labored Spontaneous Non-Labored Respiratory Depth Normal Normal Respiratory Pattern Regular Regular Blood Pressure 146/95 H Blood Pressure [Right Arm] 126/83 Blood Pressure Mean 112 Blood Pressure Mean [Right Arm] 97 Blood Pressure Position Lying Blood Pressure Position [Right Arm] Lying Pulse Oximetry 94 93 Oxygen Delivery Method Room Air Room Air Sepsis Recent Fever Within 48 Hours No Sepsis New/Unexplained Change in Mental Status No Sepsis Action Taken by Nursing No Action Required Laboratory Data Result diagrams: 10/17/20 01:45 10/17/20 14:47 Lab Results 10/17/20 10/17/20 10/17/20 Range/Units 01:45 01:45 02:45 WBC 7.30 (4.8-10.8) K/uL RBC 4.86 (4.7-6.1) M/uL Hgb 16.9 (14.0-18.0) g/dL Hct 45.2 (42-52) % MCV 93.0 (80-100) fL MCH 34.8 H (25-34) pg MCHC 37.4 H (32-36) g/dL RDW Std Deviation 40.0 (36.4-46.3) fL RDW Coeff of Gucci 11.9 (11.5-14.5) % Plt Count 157 (130-400) K/uL MPV 9.6 (7.4-10.4) fL Immature Gran % (Auto) 0.1 % Neut % (Auto) 65.4 % Lymph % (Auto) 23.6 % [place] % (Auto) 8.6 % Eos % (Auto) 1.9 % Baso % (Auto) 0.4 % Neut # (Auto) 4.77 (1.4-6.5) K/uL Lymph # (Auto) 1.72 (1.2-3.4) K/uL [place] # (Auto) 0.63 H (0.11-0.59) K/uL Eos # (Auto) 0.14 (0-0.5) K/uL Baso # (Auto) 0.03 (0-0.2) K/uL Immature Gran # (Auto) 0.01 (0.00-0.02) K/uL Sodium 134 L (136-145) mmol/L Potassium 3.5 (3.5-5.1) mmol/L Chloride 99 (98-107) mmol/L Carbon Dioxide 19 L (21-32) mmol/L Anion Gap 16.0 H (3-11) BUN 5 L (7-18) mg/dl Creatinine 1.15 (0.6-1.4) mg/dl Est Cr Clr Drug Dosing 96.5 ml/min Est GFR ( Amer) 88.0 Est GFR (Non-Af Amer) 75.9 BUN/Creatinine Ratio 4.6 L (10-20) Glucose 414 H* (70-99) mg/dl Calcium 9.2 (8.5-10.1) mg/dl Magnesium 1.9 (1.8-2.4) mg/dl Total Bilirubin 1.0 (0.2-1) mg/dl Direct Bilirubin 0.3 H (0-0.2) mg/dl AST 165 H (15-37) U/L ALT 198 H (12-78) U/L Alkaline Phosphatase 114 (45-117) U/L Troponin I < 0.015 (0-0.045) ng/ml Total Protein 8.1 (6.4-8.2) gm/dl Albumin 3.6 (3.4-5.0) gm/dl Lipase 1166 H (73-393) U/L Beta-Hydroxybutyric Acd 9.14 H (0.2-2.81) mg/dl Urine Color Urine Appearance (Clear) Urine pH (4.5-7.5) Ur Specific [place] (1.000-1.030) Urine Protein (Negative) Urine Glucose (UA) (Negative) Urine Ketones (Negative) Urine Blood (Negative) Urine Nitrite (Negative) Urine Bilirubin (Negative) Urine Urobilinogen (Negative) Ur Leukocyte Esterase (Negative) COVID-19 Eval Order Covid19 IDNow [facility] SARS-CoV-2, RNA, NAAT (NEGATIVE) 10/17/20 10/17/20 Range/Units 02:45 03:15 WBC (4.8-10.8) K/uL RBC (4.7-6.1) M/uL Hgb (14.0-18.0) g/dL Hct (42-52) % MCV (80-100) fL MCH (25-34) pg MCHC (32-36) g/dL RDW Std Deviation (36.4-46.3) fL RDW Coeff of Gucci (11.5-14.5) % Plt Count (130-400) K/uL MPV (7.4-10.4) fL Immature Gran % (Auto) % Neut % (Auto) % Lymph % (Auto) % [place] % (Auto) % Eos % (Auto) % Baso % (Auto) % Neut # (Auto) (1.4-6.5) K/uL Lymph # (Auto) (1.2-3.4) K/uL [place] # (Auto) (0.11-0.59) K/uL Eos # (Auto) (0-0.5) K/uL Baso # (Auto) (0-0.2) K/uL Immature Gran # (Auto) (0.00-0.02) K/uL Sodium (136-145) mmol/L Potassium (3.5-5.1) mmol/L Chloride (98-107) mmol/L Carbon Dioxide (21-32) mmol/L Anion Gap (3-11) BUN (7-18) mg/dl Creatinine (0.6-1.4) mg/dl Est Cr Clr Drug Dosing ml/min Est GFR ( Amer) Est GFR (Non-Af Amer) BUN/Creatinine Ratio (10-20) Glucose (70-99) mg/dl Calcium (8.5-10.1) mg/dl Magnesium (1.8-2.4) mg/dl Total Bilirubin (0.2-1) mg/dl Direct Bilirubin (0-0.2) mg/dl AST (15-37) U/L ALT (12-78) U/L Alkaline Phosphatase (45-117) U/L Troponin I (0-0.045) ng/ml Total Protein (6.4-8.2) gm/dl Albumin (3.4-5.0) gm/dl Lipase (73-393) U/L Beta-Hydroxybutyric Acd (0.2-2.81) mg/dl Urine Color Yellow Urine Appearance Clear (Clear) Urine pH 5.0 (4.5-7.5) Ur Specific [place] 1.034 H (1.000-1.030) Urine Protein Negative (Negative) Urine Glucose (UA) 3+ H (Negative) Urine Ketones 1+ H (Negative) Urine Blood Negative (Negative) Urine Nitrite Negative (Negative) Urine Bilirubin Negative (Negative) Urine Urobilinogen Negative (Negative) Ur Leukocyte Esterase Negative (Negative) COVID-19 Eval Order SARS-CoV-2, RNA, NAAT NEGATIVE (NEGATIVE) Administered Medications Enoxaparin Sodium (Enoxaparin Inj 40 Mg/0.4 Ml Syr) 40 mg SQ QAM RAMOS Stop: 11/16/20 08:59 Last Admin: 10/17/20 09:14 Dose: Not Given Documented by: [id number] Promethazine HCl 12.5 mg/ (Sodium Chloride) 50.5 mls @ 202 mls/hr IV Q6H PRN PRN Reason: Nausea And Vomiting Stop: 11/16/20 03:01 Last Infusion: 10/17/20 17:59 Dose: 0 mls/hr Documented by: [id number] Admin: 10/17/20 17:48 Dose: 202 mls/hr Documented by: [id number] Acetaminophen (Ofirmev) 1,000 mg in 100 mls @ 400 mls/hr IV Q8H [facility] Stop: 10/20/20 08:44 Last Admin: 10/17/20 16:38 Dose: Not Given Documented by: [id number] Admin: 10/17/20 13:07 Dose: Not Given Documented by: [id number] Pantoprazole Sodium 40 mg/ (Syringe) 10 mls @ 5 mls/min IV DAILY@1100 [facility] Stop: 11/16/20 10:59 Last Admin: 10/17/20 10:51 Dose: 5 mls/min Documented by: [id number] Insulin Aspart (Insulin Aspart 100 Units/Ml 3 Ml Pen) 0 units SC Q6 RAMOS Stop: 11/16/20 17:59 Last Admin: 10/17/20 18:02 Dose: 1 units Documented by: [id number] Cosigned by: [id number] Ketorolac Tromethamine (Ketorolac 30 Mg/Ml Vial) 30 mg IV Q6H PRN; Protocol PRN Reason: Pain Stop: 10/22/20 08:44 Last Admin: 10/17/20 23:12 Dose: 30 mg Documented by: [id number] Admin: 10/17/20 16:41 Dose: 30 mg Documented by: [id number] Admin: 10/17/20 10:50 Dose: 30 mg Documented by: [id number] Morphine Sulfate (Morphine Sulfate 4 Mg/Ml 1 Ml Carp\\Vial) 3 mg IV Q4H PRN PRN Reason: Pain Stop: 10/18/20 10:34 Last Admin: 10/17/20 19:42 Dose: 3 mg Documented by: [id number] Admin: 10/17/20 15:28 Dose: 3 mg Documented by: [id number] Admin: 10/17/20 10:50 Dose: 3 mg Documented by: [id number] Oxycodone HCl (Oxycodone Hcl Ir 5 Mg Tab (Immediate Release)) 5 - 10 mg PO Q4H PRN PRN Reason: moderate-severe pain Stop: 10/31/20 03:01 Last Admin: 10/17/20 22:05 Dose: 10 mg Documented by: [id number] Admin: 10/17/20 18:05 Dose: 10 mg Documented by: [id number] Admin: 10/17/20 09:19 Dose: 10 mg Documented by: [id number] Paroxetine HCl (Paroxetine Hcl 20 Mg Tab) 20 mg PO QAM RAMOS Stop: 11/16/20 08:59 Last Admin: 10/17/20 09:14 Dose: 20 mg Documented by: [id number] Discontinued Medications Clonidine HCl (Clonidine Hcl 0.1 Mg Tab) 0.1 mg PO NOW STA Stop: 10/17/20 02:59 Last Admin: 10/17/20 03:59 Dose: Not Given Documented by: [id number] Gabapentin (Gabapentin 600 Mg Tab) 1,200 mg PO NOW STA Stop: 10/17/20 02:59 Last Admin: 10/17/20 03:38 Dose: 1,200 mg Documented by: [id number] Cosigned by: [id number] Gabapentin (Gabapentin 600 Mg Tab) 600 mg PO Q6H RAMOS Stop: 10/17/20 16:01 Last Admin: 10/17/20 15:28 Dose: 600 mg Documented by: [id number] Admin: 10/17/20 10:51 Dose: 600 mg Documented by: [id number] Hydromorphone HCl (Hydromorphone Inj 1 Mg/Ml Syringe) 1 mg IV NOW STA Stop: 10/17/20 02:28 Last Admin: 10/17/20 02:47 Dose: 1 mg Documented by: [id number] Hydromorphone HCl (Hydromorphone Inj 1 Mg/Ml Syringe) 1 mg IV NOW STA Stop: 10/17/20 02:59 Last Admin: 10/17/20 04:00 Dose: Not Given Documented by: [id number] Multivitamins 10 ml/ Thiamine HCl 100 mg/ Folic Acid 1 mg/Sodium Chloride 1,011.2 mls @ 1,011.2 mls/hr IV .Q1H ONE Stop: 10/17/20 03:26 Last Infusion: 10/17/20 04:01 Dose: 0 mls/hr Documented by: [id number] Admin: 10/17/20 03:01 Dose: 1,011.2 mls/hr Documented by: [id number] Cosigned by: [id number] Sodium Chloride (Nss 1000ml) 1,000 mls @ 999 mls/hr IV .Q1H1M ONE Stop: 10/17/20 03:51 Last Infusion: 10/17/20 03:58 Dose: 0 mls/hr Documented by: [id number] Cosigned by: [id number] Admin: 10/17/20 03:00 Dose: 999 mls/hr Documented by: [id number] Cosigned by: [id number] Magnesium Sulfate/Dextrose (Magnesium Sulfate / D5w) 1 gm in 100 mls @ 50 mls/hr IV ONE STA Stop: 10/17/20 05:01 Last Infusion: 10/17/20 06:16 Dose: 0 mls/hr Documented by: [id number] Admin: 10/17/20 03:41 Dose: 50 mls/hr Documented by: [id number] Cosigned by: [id number] Lactated Ringer's (Lr) 1,000 mls @ 500 mls/hr IV .Q2H ONE Stop: 10/17/20 05:36 Last Infusion: 10/17/20 09:24 Dose: 0 mls/hr Documented by: [id number] Admin: 10/17/20 04:24 Dose: 200 mls/hr Documented by: [id number] Lactated Ringer's (Lr) 1,000 mls @ 250 mls/hr IV .Q4H RAMOS Stop: 10/17/20 21:59 Last Infusion: 10/17/20 22:02 Dose: 0 mls/hr Documented by: [id number] Admin: 10/17/20 17:48 Dose: 250 mls/hr Documented by: [id number] Infusion: 10/17/20 17:45 Dose: 250 mls/hr Documented by: [id number] Admin: 10/17/20 13:45 Dose: 250 mls/hr Documented by: [id number] Infusion: 10/17/20 13:40 Dose: 0 mls/hr Documented by: [id number] Admin: 10/17/20 09:40 Dose: 250 mls/hr Documented by: [id number] Infusion: 10/17/20 09:38 Dose: 0 mls/hr Documented by: [id number] Admin: 10/17/20 05:38 Dose: 250 mls/hr Documented by: [id number] Insulin Aspart (Insulin Aspart 100 Units/Ml 3 Ml Pen) 0 units SC ACHS RAMOS Stop: 11/16/20 11:29 Last Admin: 10/17/20 13:04 Dose: Not Given Documented by: [id number] Insulin Aspart (Insulin Aspart 100 Units/Ml 3 Ml Pen) 0 units SC ONE STA Stop: 10/17/20 03:58 Last Admin: 10/17/20 05:31 Dose: 6 units Documented by: [id number] Cosigned by: [id number] Insulin Glargine (Insulin Glargine Solostar 100 Units/Ml 3 Ml Pen) 15 units SC NOW STA Stop: 10/17/20 03:49 Last Admin: 10/17/20 05:35 Dose: Not Given Documented by: [id number] Insulin Glargine (Insulin Glargine Solostar 100 Units/Ml 3 Ml Pen) 20 units SC NOW STA Stop: 10/17/20 03:49 Last Admin: 10/17/20 04:24 Dose: 20 units Documented by: [id number] Cosigned by: [id number] Ioversol (Ioversol 100ml) 94 ml IV ONCE ONE Stop: 10/17/20 11:09 Last Admin: 10/17/20 11:08 Dose: 94 ml Documented by: [id number] Ketorolac Tromethamine (Ketorolac Tromethamine 15 Mg/Ml Vial) 15 mg IV NOW STA Stop: 10/17/20 03:29 Last Admin: 10/17/20 03:50 Dose: 15 mg Documented by: [id number] Cosigned by: [id number] Oxycodone HCl (Oxycodone Hcl Ir 5 Mg Tab (Immediate Release)) 5 mg PO Q4H PRN PRN Reason: Pain Stop: 10/31/20 03:01 Last Admin: 10/17/20 05:30 Dose: 5 mg Documented by: [id number] Potassium Chloride (Potassium Chloride 10 Meq Tabcr) 50 meq PO NOW STA Stop: 10/17/20 03:06 Last Admin: 10/17/20 03:38 Dose: 50 meq Documented by: [id number] Cosigned by: [id number] Discharge Plan Visit Data Chief Complaint: Abdominal Pain Stated Complaint: BACK, ABDOMINAL, AND CHEST PAIN ED Provider: Jose Clemente Discharge Problem: Acute alcoholic pancreatitis, Acute hyperglycemia, Elevated LFTs Patient Disposition: Admitted As Inpatient Discharge Instructions Interventions: ED Discharge Assessment Last Done: 10/17/20 04:35 Discharge Problem: Acute alcoholic pancreatitis Qualifiers: Acute pancreatitis complication: unspecified Qualified Code(s): K85.20 - Alcohol induced acute pancreatitis without necrosis or infection
[2020-10-17 02:36] LABS: Basophils # (auto) 0.03 K/uL (0-0.2); Basophils % (auto) 0.4 %; Eosinophils # (auto) 0.14 K/uL (0-0.5); Eosinophils % (auto) 1.9 %; Hematocrit (blood only) 45.2 % (42-52); Hemoglobin 16.9 g/dL (14.0-18.0); Immature Granulocytes # (auto) 0.01 K/uL (0.00-0.02); Immature Granulocytes % (auto) 0.1 %; Lymphocytes # (auto) 1.72 K/uL (1.2-3.4); Lymphocytes % (auto) 23.6 %; Mean Corpuscular Hemoglobin 34.8 pg (25-34); Mean Corpuscular Hgb Conc 37.4 g/dL (32-36); Mean Platelet Volume 9.6 fL (7.4-10.4); Monocytes # (auto) 0.63 K/uL (0.11-0.59); Monocytes % (auto) 8.6 %; Neutrophils # (auto) 4.77 K/uL (1.4-6.5); Neutrophils % (auto) 65.4 %; Platelet Count 157 K/uL (130-400); RDW Coefficient of Variation 11.9 % (11.5-14.5); Red Blood Count 4.86 M/uL (4.7-6.1)
[2020-10-17 02:49] LABS: Alanine Aminotransferase 198 U/L (12-78); Albumin Level 3.6 gm/dl (3.4-5.0); Aspartate Aminotransferase 165 U/L (15-37); BUN Creatinine Ratio 4.6 (10-20); Bilirubin Direct 0.3 mg/dl (0-0.2); Blood Urea Nitrogen 5 mg/dl (7-18); Calcium 9.2 mg/dl (8.5-10.1); Carbon Dioxide 19 mmol/L (21-32); Chloride 99 mmol/L (98-107); Creatinine Clr Calc Pharmacy 96.5 ml/min; Est GFR (Non-African American) 75.9; Glucose 414 mg/dl (70-99); Lipase 1166 U/L (73-393); Magnesium 1.9 mg/dl (1.8-2.4); Potassium 3.5 mmol/L (3.5-5.1); Sodium 134 mmol/L (136-145); Total Protein 8.1 gm/dl (6.4-8.2)
[2020-10-17] MEDS ORDERED: SODIUM CHLORIDE 0.9% 1000ML 1,000 ML IV ONE (02:51)
[2020-10-17 02:53] LABS: Alkaline Phosphatase 114 U/L (45-117); Troponin I < 0.015 ng/ml (0-0.045)
[2020-10-17] MEDS ORDERED: GABAPENTIN 600 MG TAB PO STA (02:58)
[2020-10-17] MEDS ORDERED: cloNIDine HCL 0.1 MG TAB PO STA (02:58)
[2020-10-17 02:59] LABS: Beta-Hydroxybutyrate 9.14 mg/dl (0.2-2.81)
[2020-10-17] MEDS ORDERED: MAGNESIUM SULFATE / D5W 1 GM/100 ML BAG IV STA (03:02)
[2020-10-17] MEDS ORDERED: ACETAMINOPHEN 325 MG TAB PO PRN (03:02)
[2020-10-17] MEDS ORDERED: PROMETHAZINE HCL 12.5 MG in SODIUM CHLORIDE 0.9% 50 ML IV PRN (03:02)
[2020-10-17] MEDS ORDERED: oxyCODONE HCL IR 5 MG TAB (IMMEDIATE RELEASE) PO PRN (03:02)
[2020-10-17] MEDS ORDERED: ACETAMINOPHEN 1,000 MG/100 ML VIAL IV PRN (03:03)
[2020-10-17] MEDS ORDERED: POTASSIUM CHLORIDE 10 MEQ TABCR PO STA (03:05)
[2020-10-17] MEDS ORDERED: SEVERE STRESS LEVEL ONE (03:24)
[2020-10-17] MEDS ORDERED: INSULIN PROTOCOL GOAL RANGE ONE (03:24)
--- NOTE | 2020-10-17 03:25 | History & Physical Report ---
Date of Service October 17, 2020 Assessment & Plan (1) Recurrent pancreatitis: Secondary to EtOH abuse Diarrhea secondary to pancreatitis rule out C. difficile hx chronic pain/narcotic abuse as per records/terminated medication agreement DKA secondary to illness hx DM2, medication noncompliance Suboptimal control as of recent hemoglobin A1c of 8.13 August 2020 Situational hypertension ADD/mood disorder as per records, at baseline Hx PE as per records, not on anticoagulation secondary to alcoholism GERD/Renae's esophagus on PPI Medical telemetry Bowel rest, IVF Stool C. difficile GI consult if with worsening abdominal pain/suspicion for complicated pancreatitis DT precautions, RHETT S Judicious narcotic use given history drug abuse as per records basal insulin, ISS BG goal [id number], carb count coverage, update hemoglobin A1c May benefit from Pharmacy glycemic control consultation. DVT prophylaxis per Lovenox subcu Full code Text document was generated using Yooli voice recognition software. It may contain grammatical or spelling errors. Kindly contact undersigned for clarification of any documentation item in question. History of Present Illness Chief Complaint: Abdominal pain Primary Care Provider: Dhiraj Myers, History is obtained from the patient and records. Medical history is significant for ADD/mood disorder as per records, DM2, medication noncompliance, GERD/Renae's esophagus, recurrent alcoholic pancreatitis, hx PE as per records, history of chronic pain. hx narcotic abuse as per records/terminated medication agreement Recent confinement August 2020 for alcoholic pancreatitis. Patient left AGAINST MEDICAL ADVICE after medical provider did not yield to patient demands for IV Dilaudid for analgesia as per documentation. Patient started drinking again last week after being stressed out by multiple deaths in the family. Yesterday patient noted achy epigastric pain going across his belly similar to pancreatitis attack. Symptoms associated with nausea, emesis, watery diarrhea symptoms. No fever, no chills. Patient denies chest pain, S OB. Patient states that only morphine and Dilaudid worked for his abdominal pain. Initial BSG 400s. Current BSG 273. MEDICAL HISTORY: As above. SURGERIES: Appendectomy, cholecystectomy, vascular device placement. Back surgery FAMILY HISTORY: There is a family history of mood disorder. Alcoholism, heart disease. 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 Allergies Allergy/AdvReac Type Severity Reaction Status Date / Time No Known Allergies Allergy Verified 10/17/20 02:35 Home Medications Medication Instructions Recorded Confirmed Type paroxetine HCl 20 mg PO QAM 12/20/19 10/17/20 History pantoprazole 40 mg PO QAM 01/18/20 10/17/20 History Past Med/Surg History Medical History (Updated 10/17/20 @ 06:18 by Bishop Enamorado MD) Abdominal pain Acute hyperglycemia Alcohol abuse (Unknown) Alcohol abuse Renae's esophagus (Unknown) "per EGD 11/23/09 " On 05/31/11 09:06 Martinez Jose wrote "per EGD 11/23/09 " Chest pain Depression Depression DM type 2 (diabetes mellitus, type 2) Encounter for alcohol abuse counseling and surveillance Encounter for pre-operative examination Encounter for tobacco use cessation counseling H/O acute pancreatitis "recurrent" History of substance abuse Hyperglycemia Intentional drug overdose Lumbar degenerative disc disease Mood disorder Mood disorder Neuropathy Pancreatitis Panic disorder Pulmonary embolism Suicidal ideation Suicidal ideation Suicide attempt Surgical History H/O esophagogastroduodenoscopy "EGD 11/23/2009- mild gastritis, suspicious for gastroparesis, Z-line irregular EUS 02/04/2010- mild chronic pancreatitis, pronounced cholesterolosis of gallbladder, no biliary dilation or stones, probable gastroparesis EGD 10/31/2014- gastritis" S/P lumbar fusion L4-S1 2014 Family History Father Alcohol abuse Social History Smoking Status: Current every day smoker Tobacco Type: Smokeless Tobacco (Dip or Chew) Second Hand Exposure: Yes; Hx Alcohol Use: Yes Alcohol type: beer Hx Substance Use: No Preferred Language: Bermudian Communication Ability: Effective 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: No Beliefs That Will Affect Care: None marital status: Current Living Situation: Family Current Living Situation Comment: with mother Feels Safe at Home: Yes Assistive Devices: None Review of Systems Review of Systems: As per HPI, all 10 systems reviewed, all other ROS negative Physical Exam Physical Exam: GENERAL: looks older than stated age, no respiratory distress SKIN: Normal color, warm HEENT: Alopecia, [place] palpebral conjunctivae, no ptosis, dry buccal mucosa, poor dentition NECK : Supple, short neck, no tenderness CHEST : CTA, no tenderness HEART : Tachycardic , no obvious murmurs ABDOMEN: Some distention, epigastric tenderness EXTREMITIES : No LE swelling/tenderness, no other conspicuous deformities noted NEUROLOGIC : Coherent, no facial asymmetry, no other gross focality Results & Data Results & [facility] ([facility]) Vital Signs (Past 12 Hours) Vital Signs Temp Pulse Pulse Resp BP BP Pulse Ox 10/17/20 03:07 109 H 20 126/83 93 10/17/20 02:16 36.7 C 118 H 18 146/95 H 94 Laboratory Results Laboratory Results WBC 7.30 K/uL (4.8-10.8) 10/17/20 01:45 RBC 4.86 M/uL (4.7-6.1) 10/17/20 01:45 Hgb 16.9 g/dL (14.0-18.0) 10/17/20 01:45 Hct 45.2 % (42-52) 10/17/20 01:45 MCV 93.0 fL (80-100) 10/17/20 01:45 MCH 34.8 pg (25-34) H 10/17/20 01:45 MCHC 37.4 g/dL (32-36) H 10/17/20 01:45 RDW Std Deviation 40.0 fL (36.4-46.3) 10/17/20 01:45 RDW Coeff of Gucci 11.9 % (11.5-14.5) 10/17/20 01:45 Plt Count 157 K/uL (130-400) 10/17/20 01:45 MPV 9.6 fL (7.4-10.4) 10/17/20 01:45 Immature Gran % (Auto) 0.1 % 10/17/20 01:45 Neut % (Auto) 65.4 % 10/17/20 01:45 Lymph % (Auto) 23.6 % 10/17/20 01:45 [place] % (Auto) 8.6 % 10/17/20 01:45 Eos % (Auto) 1.9 % 10/17/20 01:45 Baso % (Auto) 0.4 % 10/17/20 01:45 Neut # (Auto) 4.77 K/uL (1.4-6.5) 10/17/20 01:45 Lymph # (Auto) 1.72 K/uL (1.2-3.4) 10/17/20 01:45 [place] # (Auto) 0.63 K/uL (0.11-0.59) H 10/17/20 01:45 Eos # (Auto) 0.14 K/uL (0-0.5) 10/17/20 01:45 Baso # (Auto) 0.03 K/uL (0-0.2) 10/17/20 01:45 Immature Gran # (Auto) 0.01 K/uL (0.00-0.02) 10/17/20 01:45 Sodium 134 mmol/L (136-145) L 10/17/20 01:45 Potassium 3.5 mmol/L (3.5-5.1) 10/17/20 01:45 Chloride 99 mmol/L (98-107) 10/17/20 01:45 Carbon Dioxide 19 mmol/L (21-32) L 10/17/20 01:45 Anion Gap 16.0 (3-11) H 10/17/20 01:45 BUN 5 mg/dl (7-18) L 10/17/20 01:45 Creatinine 1.15 mg/dl (0.6-1.4) 10/17/20 01:45 Est Cr Clr Drug Dosing 96.5 ml/min 10/17/20 01:45 Est GFR ( Amer) 88.0 10/17/20 01:45 Est GFR (Non-Af Amer) 75.9 10/17/20 01:45 BUN/Creatinine Ratio 4.6 (10-20) L 10/17/20 01:45 Glucose 414 mg/dl (70-99) H* 10/17/20 01:45 Calcium 9.2 mg/dl (8.5-10.1) 10/17/20 01:45 Magnesium 1.9 mg/dl (1.8-2.4) 10/17/20 01:45 Total Bilirubin 1.0 mg/dl (0.2-1) 10/17/20 01:45 Direct Bilirubin 0.3 mg/dl (0-0.2) H 10/17/20 01:45 AST 165 U/L (15-37) H 10/17/20 01:45 ALT 198 U/L (12-78) H 10/17/20 01:45 Alkaline Phosphatase 114 U/L (45-117) 10/17/20 01:45 Troponin I < 0.015 ng/ml (0-0.045) 10/17/20 01:45 Total Protein 8.1 gm/dl (6.4-8.2) 10/17/20 01:45 Albumin 3.6 gm/dl (3.4-5.0) 10/17/20 01:45 Lipase 1166 U/L (73-393) H 10/17/20 01:45 Beta-Hydroxybutyric Acd 9.14 mg/dl (0.2-2.81) H 10/17/20 01:45 [facility] 10/17/20 02:45 SARS-CoV-2, RNA, NAAT NEGATIVE (NEGATIVE) 10/17/20 02:45 Diagnostic Findings Chest x-ray as per my interpretation cardiomegaly, elevated right hemidiaphragm EKG as per my interpretation : Rate 105, sinus tachycardia, normal axis, no ischemia
[2020-10-17] MEDS ORDERED: KETOROLAC TROMETHAMINE 15 MG/ML VIAL IV STA (03:28)
[2020-10-17] MEDS ORDERED: INSULIN REGULAR 250 UNITS in SODIUM CHLORIDE 0.9% 247.5 ML IV SCH (03:30)
[2020-10-17 03:36] LABS: Appearance Urine Clear (Clear); Bilirubin Urine Negative (Negative); Blood Urine Negative (Negative); Color Urine Yellow; Glucose Urine UA 3+ (Negative); Ketones Urine 1+ (Negative); Leukocyte Esterase Urine Negative (Negative); Nitrite Urine Negative (Negative); Protein Urine Negative (Negative); Specific Gravity Urine 1.034 (1.000-1.030); Urobilinogen Urine Negative (Negative)
[2020-10-17] MEDS ORDERED: LACTATED RINGER'S 1,000 ML IV ONE (03:37)
[2020-10-17] MEDS ORDERED: INSULIN GLARGINE SOLOSTAR 100 UNITS/ML 3 ML PEN SC STA ×2 (03:48)
[2020-10-17] MEDS ORDERED: DEXTROSE 50% 50 ML SYRINGE IV PRN (03:49)
[2020-10-17] MEDS ORDERED: GLUCOSE 10 TABS/TUBE PO PRN (03:49)
[2020-10-17] MEDS ORDERED: CARBOHYDRATES FOR HYPOGLYCEMIA PO PRN (03:49)
[2020-10-17] MEDS ORDERED: GLUCAGON FOR INJ 1 MG VIAL SQ PRN (03:49)
[2020-10-17] MEDS ORDERED: GLUCOSE 40% GEL 15 GM TUBE PO PRN (03:49)
[2020-10-17] MEDS ORDERED: INSULIN ASPART 100 UNITS/ML 3 ML PEN SC STA (03:57)
[2020-10-17 05:06] LABS: Allen Test Pos (Pos); Base Excess ABG -4.2 mEq/L (-9-1.8); HCO3 ABG 21 mmol/L (19-24); Oxygen Saturation ABG 96.5 % (90-95); PCO2 ABG 38 mmHg (35-46); PO2 ABG 85 mmHg (80-95); pH ABG 7.36 (7.35-7.45)
[2020-10-17 05:08] LABS: Partial Thromboplastin Ratio 0.9; Partial Thromboplastin Time 24.1 Seconds (21.0-31.0); Prothrombin Time 10.5 Seconds (9.0-12.0)
[2020-10-17] MEDS ORDERED: LORazepam 2 MG/4 ML VIAL IV PRN (05:15)
[2020-10-17] MEDS ORDERED: LORazepam 1 MG/2 ML VIAL IV PRN (05:15)
[2020-10-17] MEDS ORDERED: GABAPENTIN 1200MG ALCOHOL WITHDRAWAL LOAD PO STA (05:15)
[2020-10-17] MEDS ORDERED: LORazepam 3 MG/6 ML VIAL IV PRN (05:15)
[2020-10-17] MEDS ORDERED: ATIVAN IV ALCOHOL WITHDRAWL IV PRN (05:15)
[2020-10-17] MEDS: LACTATED RINGER'S 1,000 ML IV SCH ×4 (05:38→17:48)
[2020-10-17 06:26] LABS: Estimated Average Glucose 200 mg/dl; Hemoglobin A1C 8.6 % (4.5-5.6)
[2020-10-17 06:49] LABS: Base Excess VBG -2.2 mEq/L; pH VBG 7.34 (7.36-7.41)
[2020-10-17] MEDS ORDERED: INSULIN ASPART 100 UNITS/ML 3 ML PEN SC SCH ×2 (07:30→11:30)
--- NOTE | 2020-10-17 08:10 | XRay Report ---
XR chest 1V portable HISTORY: 44 years-old Male epigastric pain acute chest and back pain with nausea COMPARISON: Chest radiograph 03/31/2020 TECHNIQUE: Portable AP view of the chest FINDINGS: Cardiomediastinal and hilar silhouettes are unchanged. There is unchanged mild interstitial coarsenin g of the lung bases. No pneumothorax, pleural effusion, airspace consolidation or overt pulmonary leonardo ma. Bones of the chest appear normal. IMPRESSION: No acute process. ACT 112: Negative or not required by law. The above report was generated using voice recognition software. It may contain grammatical, syntax o r spelling errors. Electronically signed by: Rick Álvarez M.D. 10/17/2020 8:08 AM
[2020-10-17] MEDS ORDERED: LACTATED RINGER'S 1,000 ML IV SCH (08:30)
[2020-10-17] MEDS ORDERED: traMADol HCL 50 MG TABLET PO PRN (08:45)
[2020-10-17] MEDS ORDERED: PANTOprazole 40 MG TAB PO SCH (09:00)
[2020-10-17] MEDS: ENOXAPARIN INJ 40 MG/0.4 ML SYR SQ SCH (09:14)
[2020-10-17] MEDS: PARoxetine HCL 20 MG TAB PO SCH (09:14)
[2020-10-17] MEDS: oxyCODONE HCL IR 5 MG TAB (IMMEDIATE RELEASE) PO PRN ×3 (09:19→22:05)
[2020-10-17 10:16] LABS: Base Excess VBG -0.7 mEq/L; pH VBG 7.39 (7.36-7.41)
[2020-10-17] MEDS: KETOROLAC 30 MG/ML VIAL IV PRN ×3 (10:50→23:12)
[2020-10-17] MEDS: MoRPHine SULFATE 4 MG/ML 1 ML CARP\\VIAL IV PRN ×3 (10:50→19:42)
[2020-10-17] MEDS: GABAPENTIN 600 MG TAB PO SCH ×2 (10:51→15:28)
[2020-10-17] MEDS: PANTOprazole 40 MG in SYRINGE 0 ML IV SCH (10:51)
[2020-10-17] MEDS ORDERED: OPTIRAY 320 100ml IV ONE (11:08)
--- NOTE | 2020-10-17 11:23 | CT Scan Report ---
CT abdomen w IV con HISTORY: 44 years-old Male acute pancreatitis, r/o pseudocyst, necrosis acute epigastric abdominal p ain with acute pancreatitis COMPARISON: CT abdomen pelvis 08/30/2020 TECHNIQUE: Multiple axial CT images of the abdomen were obtained following the intravenous ministrati on of 94 mL Optiray 320. A dose lowering technique was used consistent with the principals of MARCIE. FINDINGS: The imaged inferior cardiac chambers are unremarkable. Clear lung bases. No pneumatosis or pneumoperi toneum. The spleen and adrenal glands are unremarkable. Cholecystectomy. Hepatic steatosis. Patency o f the hepatic and portal veins. Mild interstitial and peripancreatic edema with trace free fluid comp atible with acute pancreatitis. Mild to moderate pancreatic atrophy. Homogeneous enhancement of the p ancreas. No acute peripancreatic fluid collection or pancreatic ductal dilation. Upper abdominal vari parminder redemonstrated. Unremarkable kidneys. No hydronephrosis. No aortic aneurysm. Prominent precaval lymph nodes measuring up to 9 mm are likely reactive. Mild wall thickening of the duodenum is also likely reactive. Scatte red small bowel air-fluid levels without bowel obstruction. No bowel wall thickening. Tiny fat filled periumbilical hernia. Postoperative changes of the lower lumbar spine are partially imaged. No acute fracture. IMPRESSION: 1. Findings compatible with acute uncomplicated pancreatitis. No acute peripancreatic fluid collectio n, pancreatic necrosis or pancreatic ductal dilation. 2. No bowel obstruction. 3. Upper abdominal varices redemonstrated. 4. Hepatic steatosis. 5. Cholecystectomy. ACT 112: Negative or not required by law. The above report was generated using voice recognition software. It may contain grammatical, syntax o r spelling errors. Electronically signed by: Rick Álvarez M.D. 10/17/2020 11:21 AM
--- NOTE | 2020-10-17 12:11 | Electrocardiogram Report ---
Test Reason : Blood Pressure : / mmHG Vent. Rate : 103 BPM Atrial Rate : 103 BPM P-R Int : 148 ms QRS Dur : 082 ms QT Int : 332 ms P-R-T Axes : 063 057 041 degrees QTc Int : 434 ms Sinus tachycardia Otherwise normal ECG When compared with ECG of 30-AUG-2020 18:54, No significant change was found Confirmed by Faizan Vallejo ([id number]) on 10/17/2020 12:10:44 PM Referred By: REFERRED SELF Confirmed By:Faizan Vallejo
[2020-10-17] MEDS: ACETAMINOPHEN 1,000 MG/100 ML VIAL IV SCH ×2 (13:07→16:38)
[2020-10-17 15:10] LABS: Base Excess VBG 2.1 mEq/L; Oxygen Saturation VBG 66.5 %; pH VBG 7.37 (7.36-7.41)
--- NOTE | 2020-10-17 15:27 | Hospitalist Progress Note ---
Date of Service October 17, 2020 Assessment & Plan (1) Recurrent pancreatitis: (1) Recurrent pancreatitis: Secondary to EtOH abuse --CT abdomen pelvis: 1. Findings compatible with acute uncomplicated pancreatitis. No acute peripancreatic fluid collection, pancreatic necrosis or pancreatic ductal dilation. 2. No bowel obstruction. 3. Upper abdominal varices redemonstrated. 4. Hepatic steatosis. 5. Cholecystectomy. --Lipase 1166 --N.p.o. for now LR 200 cc/h --Continue pain control discussed in detail and at length with patient given significant and tenderness, will order Morphine IV 3mg q4h PRN for severe pain x 24 hours, then will stop in the morning Ofirmev IV every 8 hours, Toradol 30 mg every 6 hours as needed, Roxicodone 15 mg every 4 hours as needed Discussed importance of utilizing IV narcotics only for short duration to prevent side effects and dependence Discussed importance of alcohol cessation to prevent acute pancreatitis, recurrent, which could be life-threatening Patient verbalized understanding and agreement DKA --Secondary to nonadherence to insulin-which patient admitted Underlying acute pancreatitis --Resolved --Continue insulin Lantus and sliding scale --Discussed importance of adherence to insulin to DKA which is a life-threa tening condition --Patient verbalized understanding and agreement Alcoholism --Last drink was yesterday Patient reports main stressor is recent multiple deaths in the family --No signs of overt alcohol withdrawal at this time --Continue alcohol drug protocol including gabapentin taper --Patient interested in outpatient alcohol cessation programs hx chronic pain/narcotic abuse as per records/terminated medication agreement --PDMP checked, no issues --Management per above Situational hypertension --Blood pressure improving, monitor ADD/mood disorder as per records, at baseline Hx PE as per records, not on anticoagulation secondary to alcoholism --Lovenox daily subcutaneous GERD/Renae's esophagus on PPI DVT prophylaxis per Lovenox subcu Full code plan of care discussed with patient in detail and at length all questions answered he is understanding, agreeable, comfortable with the plan of care Admission and Anticipated Discharge Date Admission Date: October 17, 2020 Subjective ff up for acute pancreatitis, alcoholism, DKA Seen resting in bed, not in distress Uncomfortable secondary to epigastric pain radiating to the back Described as pressure No nausea vomiting No Fevers or chills No chest pain, shortness of breath, palpitations, dizziness Denies tremors, sweating, confusion, hallucinations No other symptoms Review of Systems Review of Systems: All systems reviewed & are unremarkable except as noted in Subjective Physical Exam Physical Exam: General- oriented x 3, not in distress, speaks in sentences with no effort or accessory muscle use Head- atraumatic Eyes- PERRL, EOMI, anicteric ENT- oropharynx clear Neck- supple, no JVD, no adenopathy, no thyromegaly; carotids +2/2, no bruits appreciated Lungs- clear to auscultation bilaterally, no rales/wheezes Heart- normal rate, regular rhythm; no murmur, no gallop, no rub appreciated Abdomen- normal bowel sounds, nondistended, soft, positive significant tenderness epigastric, bilateral upper quadrants Mild lower quadrants, no masses or hepatosplenomegaly Extremities- no pretibial edema, no calf tenderness; peripheral pulses intact No tremors Neuro- alert, oriented x 3; CN 2-12 grossly intact; motor 5/5 bilaterally;sensation 100% on all extremities; no other gross focal neurologic deficits Skin- warm & dry Results & Data Results & Data ([facility]) Vital Signs (Past 12 Hours) Vital Signs Temp Pulse Pulse Pulse Resp BP Pulse Ox 10/17/20 14:44 36.5 C 100 H 20 123/79 97 10/17/20 11:12 36.6 C 69 18 125/83 95 10/17/20 08:16 102 H 10/17/20 07:34 36.9 C 96 H 20 115/78 96 10/17/20 05:15 36.5 C 108 H 106 H 18 133/86 97 10/17/20 04:30 107 H 20 119/84 95 10/17/20 04:00 103 H 18 131/89 91 all noted and reviewed including below Laboratory Results Laboratory Results - last 24 hr 10/17/20 10/17/20 10/17/20 01:45 01:45 02:45 WBC 7.30 RBC 4.86 Hgb 16.9 Hct 45.2 MCV 93.0 MCH 34.8 H MCHC 37.4 H RDW Std Deviation 40.0 RDW Coeff of Gucci 11.9 Plt Count 157 MPV 9.6 Immature Gran % (Auto) 0.1 Neut % (Auto) 65.4 Lymph % (Auto) 23.6 [place] % (Auto) 8.6 Eos % (Auto) 1.9 Baso % (Auto) 0.4 Neut # (Auto) 4.77 Lymph # (Auto) 1.72 [place] # (Auto) 0.63 H Eos # (Auto) 0.14 Baso # (Auto) 0.03 Immature Gran # (Auto) 0.01 PT INR APTT PTT Ratio ABG pH ABG pCO2 ABG pO2 ABG HCO3 ABG O2 Saturation ABG Base Excess Kei Test VBG pH VBG pCO2 VBG pO2 VBG HCO3 VBG O2 Saturation VBG Base Excess Barometric Pressure Oxygen Given Sodium 134 L Potassium 3.5 Chloride 99 Carbon Dioxide 19 L Anion Gap 16.0 H BUN 5 L Creatinine 1.15 Est Cr Clr Drug Dosing 96.5 Est GFR ( Amer) 88.0 Est GFR (Non-Af Amer) 75.9 BUN/Creatinine Ratio 4.6 L Glucose 414 H* POC Glucose Estimat Average Glucose Hemoglobin A1c Lactate Calcium 9.2 Magnesium 1.9 Total Bilirubin 1.0 Direct Bilirubin 0.3 H AST 165 H ALT 198 H Alkaline Phosphatase 114 Troponin I < 0.015 Total Protein 8.1 Albumin 3.6 Lipase 1166 H Beta-Hydroxybutyric Acd 9.14 H Procalcitonin Urine Color Urine Appearance Urine pH Ur Specific [place] Urine Protein Urine Glucose (UA) Urine Ketones Urine Blood Urine Nitrite Urine Bilirubin Urine Urobilinogen Ur Leukocyte Esterase Ethyl Alcohol mg/dL COVID-19 Eval Order Covid19 IDNow Counts include [facility] beds at the [facility] SARS-CoV-2, RNA, NAAT 10/17/20 10/17/20 10/17/20 02:45 03:15 03:36 WBC RBC Hgb Hct MCV MCH MCHC RDW Std Deviation RDW Coeff of Gucci Plt Count MPV Immature Gran % (Auto) Neut % (Auto) Lymph % (Auto) [place] % (Auto) Eos % (Auto) Baso % (Auto) Neut # (Auto) Lymph # (Auto) [place] # (Auto) Eos # (Auto) Baso # (Auto) Immature Gran # (Auto) PT INR APTT PTT Ratio ABG pH ABG pCO2 ABG pO2 ABG HCO3 ABG O2 Saturation ABG Base Excess Kei Test VBG pH VBG pCO2 VBG pO2 VBG HCO3 VBG O2 Saturation VBG Base Excess Barometric Pressure Oxygen Given Sodium Potassium Chloride Carbon Dioxide Anion Gap BUN Creatinine Est Cr Clr Drug Dosing Est GFR ( Amer) Est GFR (Non-Af Amer) BUN/Creatinine Ratio Glucose POC Glucose 273 H Estimat Average Glucose Hemoglobin A1c Lactate Calcium Magnesium Total Bilirubin Direct Bilirubin AST ALT Alkaline Phosphatase Troponin I Total Protein Albumin Lipase Beta-Hydroxybutyric Acd Procalcitonin Urine Color Yellow Urine Appearance Clear Urine pH 5.0 Ur Specific [place] 1.034 H Urine Protein Negative Urine Glucose (UA) 3+ H Urine Ketones 1+ H Urine Blood Negative Urine Nitrite Negative Urine Bilirubin Negative Urine Urobilinogen Negative Ur Leukocyte Esterase Negative Ethyl Alcohol mg/dL COVID-19 Eval Order SARS-CoV-2, RNA, NAAT NEGATIVE 10/17/20 10/17/20 10/17/20 04:45 04:45 04:45 WBC RBC Hgb Hct MCV MCH MCHC RDW Std Deviation RDW Coeff of Gucci Plt Count MPV Immature Gran % (Auto) Neut % (Auto) Lymph % (Auto) [place] % (Auto) Eos % (Auto) Baso % (Auto) Neut # (Auto) Lymph # (Auto) [place] # (Auto) Eos # (Auto) Baso # (Auto) Immature Gran # (Auto) PT 10.5 INR 1.0 APTT 24.1 PTT Ratio 0.9 ABG pH ABG pCO2 ABG pO2 ABG HCO3 ABG O2 Saturation ABG Base Excess Kei Test VBG pH VBG pCO2 VBG pO2 VBG HCO3 VBG O2 Saturation VBG Base Excess Barometric Pressure Oxygen Given Sodium Potassium Chloride Carbon Dioxide Anion Gap BUN Creatinine Est Cr Clr Drug Dosing Est GFR ( Amer) Est GFR (Non-Af Amer) BUN/Creatinine Ratio Glucose POC Glucose Estimat Average Glucose Hemoglobin A1c Lactate 4.0 H* Calcium Magnesium Total Bilirubin Direct Bilirubin AST ALT Alkaline Phosphatase Troponin I Total Protein Albumin Lipase Beta-Hydroxybutyric Acd Procalcitonin Urine Color Urine Appearance Urine pH Ur Specific [place] Urine Protein Urine Glucose (UA) Urine Ketones Urine Blood Urine Nitrite Urine Bilirubin Urine Urobilinogen Ur Leukocyte Esterase Ethyl Alcohol mg/dL 156.0 H COVID-19 Eval Order SARS-CoV-2, RNA, NAAT 10/17/20 10/17/20 10/17/20 04:45 04:45 05:01 WBC RBC Hgb Hct MCV MCH MCHC RDW Std Deviation RDW Coeff of Gucci Plt Count MPV Immature Gran % (Auto) Neut % (Auto) Lymph % (Auto) [place] % (Auto) Eos % (Auto) Baso % (Auto) Neut # (Auto) Lymph # (Auto) [place] # (Auto) Eos # (Auto) Baso # (Auto) Immature Gran # (Auto) PT INR APTT PTT Ratio ABG pH 7.36 ABG pCO2 38 ABG pO2 85 ABG HCO3 21 ABG O2 Saturation 96.5 H ABG Base Excess -4.2 Kei Test Pos VBG pH VBG pCO2 VBG pO2 VBG HCO3 VBG O2 Saturation VBG Base Excess Barometric Pressure 740.2 Oxygen Given ROOM AIR Sodium Potassium Chloride Carbon Dioxide Anion Gap BUN Creatinine Est Cr Clr Drug Dosing Est GFR ( Amer) Est GFR (Non-Af Amer) BUN/Creatinine Ratio Glucose POC Glucose 289 H Estimat Average Glucose 200 Hemoglobin A1c 8.6 H Lactate Calcium Magnesium Total Bilirubin Direct Bilirubin AST ALT Alkaline Phosphatase Troponin I Total Protein Albumin Lipase Beta-Hydroxybutyric Acd Procalcitonin Urine Color Urine Appearance Urine pH Ur Specific [place] Urine Protein Urine Glucose (UA) Urine Ketones Urine Blood Urine Nitrite Urine Bilirubin Urine Urobilinogen Ur Leukocyte Esterase Ethyl Alcohol mg/dL COVID-19 Eval Order SARS-CoV-2, RNA, NAAT 10/17/20 10/17/20 10/17/20 06:25 06:25 06:25 WBC RBC Hgb Hct MCV MCH MCHC RDW Std Deviation RDW Coeff of Gucci Plt Count MPV Immature Gran % (Auto) Neut % (Auto) Lymph % (Auto) [place] % (Auto) Eos % (Auto) Baso % (Auto) Neut # (Auto) Lymph # (Auto) [place] # (Auto) Eos # (Auto) Baso # (Auto) Immature Gran # (Auto) PT INR APTT PTT Ratio ABG pH ABG pCO2 ABG pO2 ABG HCO3 ABG O2 Saturation ABG Base Excess Kei Test VBG pH 7.34 L VBG pCO2 45 VBG pO2 49 VBG HCO3 24 VBG O2 Saturation 83.0 VBG Base Excess -2.2 Barometric Pressure 740.2 Oxygen Given Sodium Potassium Chloride Carbon Dioxide Anion Gap BUN Creatinine Est Cr Clr Drug Dosing Est GFR ( Amer) Est GFR (Non-Af Amer) BUN/Creatinine Ratio Glucose POC Glucose Estimat Average Glucose Hemoglobin A1c Lactate 4.0 H* Calcium Magnesium Total Bilirubin Direct Bilirubin AST ALT Alkaline Phosphatase Troponin I Total Protein Albumin Lipase Beta-Hydroxybutyric Acd Procalcitonin 0.05 Urine Color Urine Appearance Urine pH Ur Specific [place] Urine Protein Urine Glucose (UA) Urine Ketones Urine Blood Urine Nitrite Urine Bilirubin Urine Urobilinogen Ur Leukocyte Esterase Ethyl Alcohol mg/dL COVID-19 Eval Order SARS-CoV-2, RNA, NAAT 10/17/20 10/17/20 10/17/20 07:29 10:04 10:04 WBC RBC Hgb Hct MCV MCH MCHC RDW Std Deviation RDW Coeff of Gucci Plt Count MPV Immature Gran % (Auto) Neut % (Auto) Lymph % (Auto) [place] % (Auto) Eos % (Auto) Baso % (Auto) Neut # (Auto) Lymph # (Auto) [place] # (Auto) Eos # (Auto) Baso # (Auto) Immature Gran # (Auto) PT INR APTT PTT Ratio ABG pH ABG pCO2 ABG pO2 ABG HCO3 ABG O2 Saturation ABG Base Excess Kei Test VBG pH 7.39 VBG pCO2 41 VBG pO2 64 VBG HCO3 24 VBG O2 Saturation 92.0 VBG Base Excess -0.7 Barometric Pressure 740.0 Oxygen Given Sodium Potassium Chloride Carbon Dioxide Anion Gap BUN Creatinine Est Cr Clr Drug Dosing Est GFR ( Amer) Est GFR (Non-Af Amer) BUN/Creatinine Ratio Glucose POC Glucose 179 H Estimat Average Glucose Hemoglobin A1c Lactate 3.2 H* Calcium Magnesium Total Bilirubin Direct Bilirubin AST ALT Alkaline Phosphatase Troponin I Total Protein Albumin Lipase Beta-Hydroxybutyric Acd Procalcitonin Urine Color Urine Appearance Urine pH Ur Specific [place] Urine Protein Urine Glucose (UA) Urine Ketones Urine Blood Urine Nitrite Urine Bilirubin Urine Urobilinogen Ur Leukocyte Esterase Ethyl Alcohol mg/dL COVID-19 Eval Order SARS-CoV-2, RNA, NAAT 10/17/20 10/17/20 10/17/20 11:23 14:46 14:47 WBC RBC Hgb Hct MCV MCH MCHC RDW Std Deviation RDW Coeff of Gucci Plt Count MPV Immature Gran % (Auto) Neut % (Auto) Lymph % (Auto) [place] % (Auto) Eos % (Auto) Baso % (Auto) Neut # (Auto) Lymph # (Auto) [place] # (Auto) Eos # (Auto) Baso # (Auto) Immature Gran # (Auto) PT INR APTT PTT Ratio ABG pH ABG pCO2 ABG pO2 ABG HCO3 ABG O2 Saturation ABG Base Excess Kei Test VBG pH 7.37 VBG pCO2 50 VBG pO2 33 VBG HCO3 28 VBG O2 Saturation 66.5 VBG Base Excess 2.1 Barometric Pressure 738.0 Oxygen Given Sodium Potassium Chloride Carbon Dioxide Anion Gap BUN Creatinine Est Cr Clr Drug Dosing Est GFR ( Amer) Est GFR (Non-Af Amer) BUN/Creatinine Ratio Glucose POC Glucose 135 H Estimat Average Glucose Hemoglobin A1c Lactate 1.2 Calcium Magnesium Total Bilirubin Direct Bilirubin AST ALT Alkaline Phosphatase Troponin I Total Protein Albumin Lipase Beta-Hydroxybutyric Acd Procalcitonin Urine Color Urine Appearance Urine pH Ur Specific [place] Urine Protein Urine Glucose (UA) Urine Ketones Urine Blood Urine Nitrite Urine Bilirubin Urine Urobilinogen Ur Leukocyte Esterase Ethyl Alcohol mg/dL COVID-19 Eval Order SARS-CoV-2, RNA, NAAT
[2020-10-17 15:43] LABS: BUN Creatinine Ratio 5.4 (10-20); Creatinine Clr Calc Pharmacy 144.9 ml/min; Est GFR (African American) 126.1; Est GFR (Non-African American) 108.8
[2020-10-17] MEDS ORDERED: PHARMACY GLYCEMIC MGMT CONSULT PRN (15:58)
[2020-10-17] MEDS: INSULIN ASPART 100 UNITS/ML 3 ML PEN SC SCH (18:02)
[2020-10-18] MEDS: MoRPHine SULFATE 4 MG/ML 1 ML CARP\\VIAL IV PRN ×5 (00:03→21:04)
[2020-10-18] MEDS: INSULIN ASPART 100 UNITS/ML 3 ML PEN SC SCH ×4 (00:04→17:01)
[2020-10-18] MEDS: GABAPENTIN 600 MG TAB PO SCH ×3 (00:04→16:13)
[2020-10-18] MEDS: ACETAMINOPHEN 1,000 MG/100 ML VIAL IV SCH ×3 (00:09→16:13)
[2020-10-18] MEDS: oxyCODONE HCL IR 5 MG TAB (IMMEDIATE RELEASE) PO PRN ×2 (03:14→10:53)
[2020-10-18 05:59] LABS: Basophils # (auto) 0.02 K/uL (0-0.2); Basophils % (auto) 0.4 %; Eosinophils # (auto) 0.26 K/uL (0-0.5); Eosinophils % (auto) 5.8 %; Hematocrit (blood only) 42.2 % (42-52); Hemoglobin 14.7 g/dL (14.0-18.0); Lymphocytes # (auto) 1.06 K/uL (1.2-3.4); Lymphocytes % (auto) 23.5 %; Mean Corpuscular Hemoglobin 33.3 pg (25-34); Mean Corpuscular Hgb Conc 34.8 g/dL (32-36); Mean Corpuscular Volume 95.5 fL (80-100); Mean Platelet Volume 9.6 fL (7.4-10.4); Monocytes # (auto) 0.41 K/uL (0.11-0.59); Monocytes % (auto) 9.1 %; Neutrophils # (auto) 2.76 K/uL (1.4-6.5); Neutrophils % (auto) 61.2 %; Platelet Count 107 K/uL (130-400); RDW Coefficient of Variation 11.9 % (11.5-14.5); RDW Standard Deviation 41.7 fL (36.4-46.3); Red Blood Count 4.42 M/uL (4.7-6.1); White Blood Count 4.51 K/uL (4.8-10.8)
[2020-10-18 06:28] LABS: Albumin Level 2.8 gm/dl (3.4-5.0); BUN Creatinine Ratio 4.8 (10-20); Calcium 9.5 mg/dl (8.5-10.1); Creatinine Clr Calc Pharmacy 137.8 ml/min; Est GFR (African American) 123.5; Est GFR (Non-African American) 106.6; Potassium 4.1 mmol/L (3.5-5.1)
[2020-10-18 06:37] LABS: Albumin Globulin Ratio 0.8 (0.9-2); Bilirubin,Total 1.7 mg/dl (0.2-1); Globulin 3.6 gm/dl (2.5-4.0); Total Protein 6.4 gm/dl (6.4-8.2)
[2020-10-18] MEDS: KETOROLAC 30 MG/ML VIAL IV PRN ×3 (06:47→23:04)
[2020-10-18] MEDS: INSULIN GLARGINE SOLOSTAR 100 UNITS/ML 3 ML PEN SC SCH (07:52)
[2020-10-18] MEDS: THIAMINE HCL 100 MG TAB PO SCH (07:53)
[2020-10-18] MEDS: MULTIVITAMIN TAB PO SCH (07:53)
[2020-10-18] MEDS: PARoxetine HCL 20 MG TAB PO SCH (07:53)
[2020-10-18] MEDS: ENOXAPARIN INJ 40 MG/0.4 ML SYR SQ SCH ×2 (07:53→08:01)
[2020-10-18] MEDS: FOLIC ACID 1 MG TAB PO SCH (07:54)
[2020-10-18] MEDS ORDERED: INSULIN GLARGINE SOLOSTAR 100 UNITS/ML 3 ML PEN SC SCH (09:00)
--- NOTE | 2020-10-18 09:27 | Gastrointestinal Consultation ---
Date of Consultation October 18, 2020 Assessment & Plan (1) Acute alcoholic pancreatitis: - NPO except for ice and sips of water. - IVF hydration at at least 150ml/hr - Follow UOP and labs closely - Follow LFTs - Watch for s/s of DTs - PRN analgesia and anti-emetics. - He needs a plan for ETOH cessation following discharge (2) Elevated LFTs: (3) Acute hyperglycemia: (4) Alcohol withdrawal: (5) Tobacco use: History of Present Illness Reason for Consultation: ETOH pancreatitis Attending Physician: Antony Lind MD History of Present Illness 46 yo male with DM and a history of chronic ETOH use and pancreatitis in the past admitted with acute ETOH pancreatitis. Slowly improving. NPO. On IVF and PRN analgesia nd antiemetics. Still complaining of epigastric pain this AM. No nausea or vomiting. Has not had a BM in 48+ours. Had GB removed in the past. Lipase went from 1166 to 724. Transaminases mildly elevated. AP 248 this AM. Last ETOH was monday night. Allergies Allergy/AdvReac Type Severity Reaction Status Date / Time No Known Allergies Allergy Verified 10/17/20 02:35 Home Medications Medication Instructions Recorded Confirmed Type paroxetine HCl 20 mg PO QAM 12/20/19 10/17/20 History pantoprazole 40 mg PO QAM 01/18/20 10/17/20 History Patient History Medical History (Updated 10/17/20 @ 23:28 by Jose Clemente MD) Abdominal pain Acute hyperglycemia Alcohol abuse (Unknown) Alcohol abuse Renae's esophagus (Unknown) "per EGD 11/23/09 " On 05/31/11 09:06 Martinez Jose wrote "per EGD 11/23/09 " Chest pain Depression Depression DM type 2 (diabetes mellitus, type 2) Encounter for alcohol abuse counseling and surveillance Encounter for pre-operative examination Encounter for tobacco use cessation counseling H/O acute pancreatitis "recurrent" History of substance abuse Hyperglycemia Intentional drug overdose Lumbar degenerative disc disease Mood disorder Mood disorder Neuropathy Pancreatitis Panic disorder Pulmonary embolism Suicidal ideation Suicidal ideation Suicide attempt Surgical History H/O esophagogastroduodenoscopy "EGD 11/23/2009- mild gastritis, suspicious for gastroparesis, Z-line irregular EUS 02/04/2010- mild chronic pancreatitis, pronounced cholesterolosis of gallbladder, no biliary dilation or stones, probable gastroparesis EGD 10/31/2014- gastritis" S/P lumbar fusion L4-S1 2014 Family History Father Alcohol abuse Social History Smoking Status: Never smoker Tobacco Type: Smokeless Tobacco (Dip or Chew) Second Hand Exposure: No; Do You Dip or Chew Tobacco: Yes; Tobacco Cessation Education Requested by Patient: No Hx Alcohol Use: Yes Alcohol type: beer Hx Substance Use: No Preferred Language: Yoruba Communication Ability: Effective Ward Supervisor Required: No Beliefs That Will Affect Care: None marital status: Current Living Situation: Family Current Living Situation Comment: with mother Other Information That Helps Us Care for You: No Feels Safe at Home: Yes Safety Concerns: Feels Safe At This Time Assistive Devices: None Review of Systems Review of Systems: All systems reviewed & are unremarkable except as noted in HPI & below Physical Exam Constitutional: WD/WN, vitals as above Eyes: PERRL, conjunctivae normal, anicteric sclerae Neck: trachea midline, no thyromegaly Respiratory: normal respiratory effort, lungs clear to auscultation Cardiovascular: RRR, no murmur, no edema Gastrointestinal (Abdomen): Percussion/Palpation: + abdomen tender and abdomen soft Musculoskeletal: no cyanosis or clubbing, extremities motor strength 5/5 Neurologic: CN's II-XI intact bilaterally Results & Data ([facility]) Vital Signs (Past 12 Hours) Vital Signs Temp Pulse Pulse Resp BP BP Pulse Ox 10/18/20 08:00 79 10/18/20 07:01 36.6 C 84 18 129/79 97 10/18/20 03:33 37.1 C 87 20 115/65 95 10/17/20 23:32 72 10/17/20 23:30 37.0 C 77 20 125/81 99 (1) Acute alcoholic pancreatitis Acute pancreatitis complication: unspecified Qualified Code(s): K85.20 - Alcohol induced acute pancreatitis without necrosis or infection
[2020-10-18] MEDS: PANTOprazole 40 MG in SYRINGE 0 ML IV SCH (10:53)
--- NOTE | 2020-10-18 14:18 | Pharmacy Report ---
Pharmacy Glycemic Short Note 2 - Date of Service October 18, 2020 - Glycemic Short BSG Results (Last 24 hours): 10/17/20 10/17/20 10/17/20 14:47 17:55 23:58 Glucose 157 H POC Glucose 162 H 161 H 10/18/20 10/18/20 10/18/20 05:35 06:04 07:17 Glucose 145 H POC Glucose 135 H 141 H 10/18/20 11:23 Glucose POC Glucose 116 H OUTPATIENT ANTIDIABETIC REGIMEN: * n/a * HbA1c: 8.6% (10/17/20) ASSESSMENT: * JENNIFER is a 44 year old male who presented with increasing epigastric pain * found to have acute alcoholic pancreatitis * Patient is currently NPO - BSGs well controlled today, 141 and 116 mg/dL * Given 15 units of Lantus this morning, which is a 20% reduction from day prior * Novolog parameters tightened last evening to weight-based stress of 2 dosing - will continue PLAN FOR INPATIENT GLYCEMIC CONTROL: * Basal insulin * Lantus 15 units SC daily * Bolus insulin * NovoLog per scale ACHS or Q6hrs while NPO * Goal Range: Low 110 mg/dL - High 140 mg/dL * Correction Factor: 25 mg/dL/unit * Nutritional / Prandial insulin per carb ratio of 1 unit per 8 grams CHO consumed PLAN FOR DISCHARGE: * tbd
--- NOTE | 2020-10-18 15:57 | Hospitalist Progress Note ---
Date of Service October 18, 2020 Assessment & Plan (1) Recurrent pancreatitis: (1) Recurrent pancreatitis: Secondary to EtOH abuse --CT abdomen pelvis: 1. Findings compatible with acute uncomplicated pancreatitis. No acute peripancreatic fluid collection, pancreatic necrosis or pancreatic ductal dilation. 2. No bowel obstruction. 3. Upper abdominal varices redemonstrated. 4. Hepatic steatosis. 5. Cholecystectomy. --Lipase 1166--> 700s --advance to clear liquids LR 200 cc/h --Continue pain control discussed in detail and at length with patient wean off Morphine- to q6h Ofirmev IV every 8 hours, Toradol 30 mg every 6 hours as needed, Roxicodone 5-10 mg every 4 hours as needed Discussed importance of utilizing IV narcotics only for short duration to prevent side effects and dependence Discussed importance of alcohol cessation to prevent acute pancreatitis, re current, which could be life-threatening Patient verbalized understanding and agreement with above DKA --Secondary to nonadherence to insulin-which patient admitted Underlying acute pancreatitis --Resolved --Continue insulin Lantus and sliding scale --Discussed importance of adherence to insulin to DKA which is a life- threatening condition --Patient verbalized understanding and agreement Alcoholism --Last drink was Monday Patient reports main stressor is recent multiple deaths in the family --No signs of overt alcohol withdrawal at this time --Continue alcohol drug protocol including gabapentin taper --Patient interested in outpatient alcohol cessation programs hx chronic pain/narcotic abuse as per records/terminated medication agreement --PDMP checked, no issues --Management per above Situational hypertension --Blood pressure improving, monitor ADD/mood disorder as per records, at baseline Hx PE as per records, not on anticoagulation secondary to alcoholism --Lovenox daily subcutaneous GERD/Renae's esophagus on PPI DVT prophylaxis per Lovenox subcu Full code plan of care discussed with patient in detail and at length all questions answered he is understanding, agreeable, comfortable with the plan of care Disposition pending anticipate d/c home when medically stable Admission and Anticipated Discharge Date Admission Date: October 17, 2020 Subjective ff up for alcoholic pancreatitis seen resting in bed, not in distress still reports epigastric pain- slightly improved no fever/chills, nausea, chest pain, dyspnea no BMs yet, (+) flatus denies tremors, sweating, hallucinations no other symptoms Review of Systems Review of Systems: All systems reviewed & are unremarkable except as noted in Subjective Physical Exam Physical Exam: General- oriented x 2, not in distress, speaks in sentences with no effort or accessory muscle use Eyes- anicteric Neck- no JVD Lungs- clear breath sounds bilaterally Heart- normal rate, regular rhythm; no murmurs Abdomen- normal bowel sounds, nondistended, soft, mild tenderness Extremities- no pretibial edema, no calf tenderness Neuro- alert, oriented x 3; no gross focal neurologic deficits Skin- warm & dry Results & Data Results & Data ([facility]) Vital Signs (Past 12 Hours) Vital Signs Temp Pulse Pulse Resp BP BP Pulse Ox 10/18/20 15:42 37.0 C 86 18 124/75 95 10/18/20 10:59 36.6 C 80 20 127/79 97 10/18/20 08:00 79 10/18/20 07:01 36.6 C 84 18 129/79 97 Laboratory Results Laboratory Results - last 24 hr 10/17/20 10/17/20 10/17/20 14:46 14:47 14:47 WBC RBC Hgb Hct MCV MCH MCHC RDW Std Deviation RDW Coeff of Gucci Plt Count MPV Immature Gran % (Auto) Neut % (Auto) Lymph % (Auto) [place] % (Auto) Eos % (Auto) Baso % (Auto) Neut # (Auto) Lymph # (Auto) [place] # (Auto) Eos # (Auto) Baso # (Auto) Immature Gran # (Auto) VBG pH 7.37 VBG pCO2 50 VBG pO2 33 VBG HCO3 28 VBG O2 Saturation 66.5 VBG Base Excess 2.1 Barometric Pressure 738.0 Sodium 138 Potassium 4.0 Chloride 105 Carbon Dioxide 28 Anion Gap 5.0 BUN 4 L Creatinine 0.77 D Est Cr Clr Drug Dosing 144.9 Est GFR ( Amer) 126.1 Est GFR (Non-Af Amer) 108.8 BUN/Creatinine Ratio 5.4 L Glucose 157 H POC Glucose Lactate 1.2 Calcium 9.0 Total Bilirubin AST ALT Alkaline Phosphatase Total Protein Albumin Globulin Albumin/Globulin Ratio Lipase 10/17/20 10/17/20 10/18/20 17:55 23:58 05:35 WBC RBC Hgb Hct MCV MCH MCHC RDW Std Deviation RDW Coeff of Gucci Plt Count MPV Immature Gran % (Auto) Neut % (Auto) Lymph % (Auto) [place] % (Auto) Eos % (Auto) Baso % (Auto) Neut # (Auto) Lymph # (Auto) [place] # (Auto) Eos # (Auto) Baso # (Auto) Immature Gran # (Auto) VBG pH VBG pCO2 VBG pO2 VBG HCO3 VBG O2 Saturation VBG Base Excess Barometric Pressure Sodium 137 Potassium 4.1 Chloride 102 Carbon Dioxide 29 Anion Gap 6.0 BUN 4 L Creatinine 0.81 Est Cr Clr Drug Dosing 137.8 Est GFR ( Amer) 123.5 Est GFR (Non-Af Amer) 106.6 BUN/Creatinine Ratio 4.8 L Glucose 145 H POC Glucose 162 H 161 H Lactate Calcium 9.5 Total Bilirubin 1.7 H D AST 212 H ALT 204 H Alkaline Phosphatase 248 H D Total Protein 6.4 D Albumin 2.8 L Globulin 3.6 Albumin/Globulin Ratio 0.8 L Lipase 727 H 10/18/20 10/18/20 10/18/20 05:35 06:04 07:17 WBC 4.51 L RBC 4.42 L Hgb 14.7 Hct 42.2 MCV 95.5 MCH 33.3 MCHC 34.8 RDW Std Deviation 41.7 RDW Coeff of Gucci 11.9 Plt Count 107 L MPV 9.6 Immature Gran % (Auto) 0.0 Neut % (Auto) 61.2 Lymph % (Auto) 23.5 [place] % (Auto) 9.1 Eos % (Auto) 5.8 Baso % (Auto) 0.4 Neut # (Auto) 2.76 Lymph # (Auto) 1.06 L [place] # (Auto) 0.41 Eos # (Auto) 0.26 Baso # (Auto) 0.02 Immature Gran # (Auto) 0.00 VBG pH VBG pCO2 VBG pO2 VBG HCO3 VBG O2 Saturation VBG Base Excess Barometric Pressure Sodium Potassium Chloride Carbon Dioxide Anion Gap BUN Creatinine Est Cr Clr Drug Dosing Est GFR ( Amer) Est GFR (Non-Af Amer) BUN/Creatinine Ratio Glucose POC Glucose 135 H 141 H Lactate Calcium Total Bilirubin AST ALT Alkaline Phosphatase Total Protein Albumin Globulin Albumin/Globulin Ratio Lipase 10/18/20 11:23 WBC RBC Hgb Hct MCV MCH MCHC RDW Std Deviation RDW Coeff of Gucci Plt Count MPV Immature Gran % (Auto) Neut % (Auto) Lymph % (Auto) [place] % (Auto) Eos % (Auto) Baso % (Auto) Neut # (Auto) Lymph # (Auto) [place] # (Auto) Eos # (Auto) Baso # (Auto) Immature Gran # (Auto) VBG pH VBG pCO2 VBG pO2 VBG HCO3 VBG O2 Saturation VBG Base Excess Barometric Pressure Sodium Potassium Chloride Carbon Dioxide Anion Gap BUN Creatinine Est Cr Clr Drug Dosing Est GFR ( Amer) Est GFR (Non-Af Amer) BUN/Creatinine Ratio Glucose POC Glucose 116 H Lactate Calcium Total Bilirubin AST ALT Alkaline Phosphatase Total Protein Albumin Globulin Albumin/Globulin Ratio Lipase
[2020-10-18] MEDS: LACTATED RINGER'S 1,000 ML IV SCH ×2 (16:13→23:25)
[2020-10-18] MEDS ORDERED: ALUMINUM/MAGNESIUM SUSP 30 ML UDC PO STA (23:00)
[2020-10-18] MEDS ORDERED: Nursing to Pharmacy Communication SCH (23:15)
[2020-10-19] MEDS: ACETAMINOPHEN 1,000 MG/100 ML VIAL IV SCH ×3 (01:17→15:53)
[2020-10-19] MEDS: MoRPHine SULFATE 4 MG/ML 1 ML CARP\\VIAL IV PRN ×3 (03:25→19:27)
[2020-10-19] MEDS: LACTATED RINGER'S 1,000 ML IV SCH ×2 (06:06→12:46)
[2020-10-19] MEDS: GABAPENTIN 600 MG TAB PO SCH ×2 (06:07→18:58)
[2020-10-19] MEDS: KETOROLAC 30 MG/ML VIAL IV PRN ×2 (06:09→23:52)
[2020-10-19] MEDS: ENOXAPARIN INJ 40 MG/0.4 ML SYR SQ SCH (08:15)
[2020-10-19] MEDS: FOLIC ACID 1 MG TAB PO SCH (08:23)
[2020-10-19] MEDS: MULTIVITAMIN TAB PO SCH (08:23)
[2020-10-19] MEDS: THIAMINE HCL 100 MG TAB PO SCH (08:23)
[2020-10-19] MEDS: PARoxetine HCL 20 MG TAB PO SCH (08:23)
[2020-10-19] MEDS: INSULIN ASPART 100 UNITS/ML 3 ML PEN SC SCH ×4 (08:24→20:30)
[2020-10-19] MEDS: INSULIN GLARGINE SOLOSTAR 100 UNITS/ML 3 ML PEN SC SCH (08:24)
[2020-10-19 10:01] LABS: Basophils # (auto) 0.01 K/uL (0-0.2); Basophils % (auto) 0.2 %; Eosinophils # (auto) 0.27 K/uL (0-0.5); Eosinophils % (auto) 6.7 %; Hematocrit (blood only) 41.5 % (42-52); Lymphocytes # (auto) 1.18 K/uL (1.2-3.4); Lymphocytes % (auto) 29.2 %; Mean Corpuscular Hemoglobin 33.6 pg (25-34); Mean Corpuscular Hgb Conc 36.1 g/dL (32-36); Mean Platelet Volume 9.1 fL (7.4-10.4); Monocytes # (auto) 0.45 K/uL (0.11-0.59); Monocytes % (auto) 11.1 %; Neutrophils # (auto) 2.13 K/uL (1.4-6.5); Neutrophils % (auto) 52.8 %; Platelet Count 108 K/uL (130-400); RDW Coefficient of Variation 11.7 % (11.5-14.5); RDW Standard Deviation 39.8 fL (36.4-46.3); Red Blood Count 4.46 M/uL (4.7-6.1); White Blood Count 4.04 K/uL (4.8-10.8)
[2020-10-19 10:27] LABS: Albumin Level 2.6 gm/dl (3.4-5.0); BUN Creatinine Ratio 4.6 (10-20); Calcium 9.2 mg/dl (8.5-10.1); Creatinine Clr Calc Pharmacy 142.6 ml/min; Est GFR (African American) 125.5; Est GFR (Non-African American) 108.3; Potassium 3.5 mmol/L (3.5-5.1)
[2020-10-19 10:45] LABS: Bilirubin Direct 0.4 mg/dl (0-0.2); Total Protein 6.4 gm/dl (6.4-8.2)
--- NOTE | 2020-10-19 10:48 | Pharmacy Report ---
Pharmacy Glycemic Short Note 2 - Date of Service October 19, 2020 - Glycemic Short BSG Results (Last 24 hours): OUTPATIENT ANTIDIABETIC REGIMEN: * None * HbA1c: 8.6% (10/17/20) ASSESSMENT: 10/19: * BSGs well controlled yesterday: [phone] mg/dL * Received a total of 15 units of insulin yesterday, all basal * Fasting BSG of 171 mg/dL this AM - above goal range * Received higher dose of Lantus this AM * No change to Novolog at this time * Patient has a diet ordered but appetite is poor 10/18: * JENNIFER is a 44 year old male who presented with increasing epigastric pain * found to have acute alcoholic pancreatitis * Patient is currently NPO - BSGs well controlled today, 141 and 116 mg/dL * Given 15 units of Lantus this morning, which is a 20% reduction from day prior * Novolog parameters tightened last evening to weight-based stress of 2 dosing - will continue PLAN FOR INPATIENT GLYCEMIC CONTROL: * Basal insulin * Lantus 15-20 units SC daily * 15 units for BSG < 150 mg/dL; 20 units for BSG 150 mg/dL or more * Bolus insulin * NovoLog per scale ACHS or Q6hrs while NPO * Goal Range: Low 110 mg/dL - High 140 mg/dL * Correction Factor: 25 mg/dL/unit * Nutritional / Prandial insulin per carb ratio of 1 unit per 8 grams CHO consumed PLAN FOR DISCHARGE: * tbd
[2020-10-19] MEDS: PANTOprazole 40 MG in SYRINGE 0 ML IV SCH (10:57)
[2020-10-19] MEDS ORDERED: MoRPHine SULFATE 4 MG/ML 1 ML CARP\\VIAL IV PRN (18:13)
--- NOTE | 2020-10-19 18:16 | Hospitalist Progress Note ---
Date of Service October 19, 2020 Assessment & Plan (1) Recurrent pancreatitis: (1) Recurrent pancreatitis: Secondary to EtOH abuse --CT abdomen pelvis: 1. Findings compatible with acute uncomplicated pancreatitis. No acute peripancreatic fluid collection, pancreatic necrosis or pancreatic ductal dilation. 2. No bowel obstruction. 3. Upper abdominal varices redemonstrated. 4. Hepatic steatosis. 5. Cholecystectomy. --Lipase 1166--> 700s--> 208 --advance diet to soft, low fiber and fat LR 200 cc/h--> 75cc/hr --Continue pain control discussed in detail and at length with patient wean off Morphine- to q8h Ofirmev IV every 8 hours, Toradol 30 mg every 6 hours as needed, Roxicodone 5-10 mg every 4 hours as needed Discussed importance of utilizing IV narcotics only for short duration to prevent side effects and dependence Discussed importance of alcohol cessation to prevent acute pancreatitis, recurrent, which could be life-threatening Patient verbalized understanding and agreement with above DKA --Secondary to nonadherence to insulin-which patient admitted Underlying acute pancreatitis --Resolved --Continue insulin Lantus and sliding scale --Discussed importance of adherence to insulin to DKA which is a life- threatening condition --Patient verbalized understanding and agreement Alcoholism --Last drink was Monday Patient reports main stressor is recent multiple deaths in the family --No signs of overt alcohol withdrawal at this time --Continue alcohol drug protocol including gabapentin taper --Patient interested in outpatient alcohol cessation programs hx chronic pain/narcotic abuse as per records/terminated medication agreement --PDMP checked, no issues --Management per above Situational hypertension --Blood pressure improving, monitor ADD/mood disorder as per records, at baseline Hx PE as per records, not on anticoagulation secondary to alcoholism --Lovenox daily subcutaneous GERD/Renae's esophagus on PPI DVT prophylaxis per Lovenox subcu Full code plan of care discussed with patient in detail and at length all questions answered he is understanding, agreeable, comfortable with the plan of care Disposition pending anticipate d/c home when medically stable Admission and Anticipated Discharge Date Admission Date: October 17, 2020 Subjective ff up for acute pancreatitis, etc seen resting in bed, comfortable not in distress states abdominal pain is slowly improving no nausea, chills, chest pain, dyspnea no BM, (+) flatus reports mild tremor but no sweating, confusion, hallucination no other symptom Review of Systems Review of Systems: All systems reviewed & are unremarkable except as noted in Subjective Physical Exam Physical Exam: General- oriented x 3, not in distress, speaks in sentences with no effort or accessory muscle use Eyes- anicteric Neck- no JVD Lungs- clear BS BL Heart- normal rate, regular rhythm; no murmurs Abdomen- normal bowel sounds, nondistended, soft, mild tenderness mostly epigastric area Extremities- no pretibial edema, no calf tenderness Neuro- alert, oriented x 3; no gross focal neurologic deficits Skin- warm & dry Results & Data Results & Data ([facility]) Vital Signs (Past 12 Hours) Vital Signs Temp Pulse Pulse Resp BP Pulse Ox 10/19/20 14:54 36.6 C 80 18 121/67 97 10/19/20 14:20 70 10/19/20 11:12 36.5 C 72 18 137/87 100 10/19/20 08:44 69 10/19/20 07:38 36.9 C 70 18 122/81 98 all noted and reviewed including below Laboratory Results Laboratory Results - last 24 hr 10/18/20 10/19/20 10/19/20 20:35 07:30 09:52 WBC RBC Hgb Hct MCV MCH MCHC RDW Std Deviation RDW Coeff of Gucci Plt Count MPV Immature Gran % (Auto) Neut % (Auto) Lymph % (Auto) [place] % (Auto) Eos % (Auto) Baso % (Auto) Neut # (Auto) Lymph # (Auto) [place] # (Auto) Eos # (Auto) Baso # (Auto) Immature Gran # (Auto) Sodium 139 Potassium 3.5 Chloride 106 Carbon Dioxide 31 Anion Gap 2.0 L BUN 4 L Creatinine 0.78 Est Cr Clr Drug Dosing 142.6 Est GFR ( Amer) 125.5 Est GFR (Non-Af Amer) 108.3 BUN/Creatinine Ratio 4.6 L Glucose 87 POC Glucose 150 H 171 H Calcium 9.2 Total Bilirubin 1.0 D Direct Bilirubin 0.4 H AST 107 H ALT 155 H Alkaline Phosphatase 214 H Total Protein 6.4 Albumin 2.6 L Lipase 208 10/19/20 10/19/20 10/19/20 09:52 11:40 16:28 WBC 4.04 L RBC 4.46 L Hgb 15.0 Hct 41.5 L MCV 93.0 MCH 33.6 MCHC 36.1 H RDW Std Deviation 39.8 RDW Coeff of Gucci 11.7 Plt Count 108 L MPV 9.1 Immature Gran % (Auto) 0.0 Neut % (Auto) 52.8 Lymph % (Auto) 29.2 [place] % (Auto) 11.1 Eos % (Auto) 6.7 Baso % (Auto) 0.2 Neut # (Auto) 2.13 Lymph # (Auto) 1.18 L [place] # (Auto) 0.45 Eos # (Auto) 0.27 Baso # (Auto) 0.01 Immature Gran # (Auto) 0.00 Sodium Potassium Chloride Carbon Dioxide Anion Gap BUN Creatinine Est Cr Clr Drug Dosing Est GFR ( Amer) Est GFR (Non-Af Amer) BUN/Creatinine Ratio Glucose POC Glucose 91 134 H Calcium Total Bilirubin Direct Bilirubin AST ALT Alkaline Phosphatase Total Protein Albumin Lipase
[2020-10-20] MEDS: ACETAMINOPHEN 1,000 MG/100 ML VIAL IV SCH (00:41)
[2020-10-20] MEDS: LACTATED RINGER'S 1,000 ML IV SCH (01:56)
[2020-10-20] MEDS: MoRPHine SULFATE 4 MG/ML 1 ML CARP\\VIAL IV PRN (05:14)
[2020-10-20 06:58] LABS: Basophils # (auto) 0.01 K/uL (0-0.2); Basophils % (auto) 0.3 %; Eosinophils % (auto) 5.2 %; Hematocrit (blood only) 41.1 % (42-52); Hemoglobin 14.8 g/dL (14.0-18.0); Lymphocytes % (auto) 26.2 %; Mean Corpuscular Hemoglobin 33.7 pg (25-34); Mean Corpuscular Volume 93.6 fL (80-100); Mean Platelet Volume 9.5 fL (7.4-10.4); Monocytes # (auto) 0.31 K/uL (0.11-0.59); Monocytes % (auto) 8.1 %; Neutrophils # (auto) 2.29 K/uL (1.4-6.5); Neutrophils % (auto) 60.2 %; Platelet Count 108 K/uL (130-400); RDW Coefficient of Variation 11.8 % (11.5-14.5); RDW Standard Deviation 39.9 fL (36.4-46.3); Red Blood Count 4.39 M/uL (4.7-6.1); White Blood Count 3.81 K/uL (4.8-10.8)
[2020-10-20 07:35] VITALS: O2SAT 99
[2020-10-20 07:35] LABS: Albumin Level 2.4 gm/dl (3.4-5.0); BUN Creatinine Ratio 7.5 (10-20); Bilirubin Direct 0.2 mg/dl (0-0.2); Est GFR (African American) 124.2; Est GFR (Non-African American) 107.1; Potassium 4.3 mmol/L (3.5-5.1)
[2020-10-20 07:40] LABS: Bilirubin,Total 0.9 mg/dl (0.2-1); Total Protein 6.1 gm/dl (6.4-8.2)
[2020-10-20] MEDS: INSULIN ASPART 100 UNITS/ML 3 ML PEN SC SCH ×2 (08:39→12:22)
[2020-10-20] MEDS: FOLIC ACID 1 MG TAB PO SCH (08:39)
[2020-10-20] MEDS: INSULIN GLARGINE SOLOSTAR 100 UNITS/ML 3 ML PEN SC SCH (08:40)
[2020-10-20] MEDS: THIAMINE HCL 100 MG TAB PO SCH (08:41)
[2020-10-20] MEDS: PARoxetine HCL 20 MG TAB PO SCH (08:41)
[2020-10-20] MEDS: MULTIVITAMIN TAB PO SCH (08:41)
[2020-10-20] MEDS: ENOXAPARIN INJ 40 MG/0.4 ML SYR SQ SCH (08:42)
[2020-10-20] MEDS: KETOROLAC 30 MG/ML VIAL IV PRN (11:18)
[2020-10-20] MEDS: PANTOprazole 40 MG in SYRINGE 0 ML IV SCH (11:23)
[2020-10-20 11:49] VITALS: BP 130/83; PULSE 75; TEMP 98.6
[2020-10-20] MEDS: oxyCODONE HCL IR 5 MG TAB (IMMEDIATE RELEASE) PO PRN (13:10)
--- NOTE | 2020-10-20 13:19 | Hospitalist Progress Note ---
Date of Service October 20, 2020 Assessment & Plan (1) Recurrent pancreatitis: (1) Recurrent pancreatitis: Secondary to EtOH abuse --CT abdomen pelvis: 1. Findings compatible with acute uncomplicated pancreatitis. No acute peripancreatic fluid collection, pancreatic necrosis or pancreatic ductal dilation. 2. No bowel obstruction. 3. Upper abdominal varices redemonstrated. 4. Hepatic steatosis. 5. Cholecystectomy. --Lipase 1166--> 700s--> 271 (normal) --advances diet to soft, low fiber and fat--> tolerated well given vigorous LR 200 cc/h--> 75cc/hr -- pain managed with PRN Morphine (weaned off daily) Ofirmev IV every 8 hours, Toradol 30 mg every 6 hours as needed, Roxicodone 5-10 mg every 4 hours as needed Discussed importance of utilizing IV narcotics only for short duration to prevent side effects and dependence Patient declined inpatient Alcohol Rehab, he prefers to pursue outpatient treatment for alcoholism Discussed importance of alcohol cessation to prevent acute pancreatitis, recurrent, which could be life-threatening Patient verbalized understanding and agreement with above DKA DM 2 - A1c 8.6 --Secondary to nonadherence to insulin-which patient admitted Underlying acute pancreatitis --Resolved --given insulin Lantus and sliding scale --Discussed importance of adherence to DM diet, medications to avoid DM complications and DKA which is a life-threatening condition --Patient verbalized understanding and agreement -- DM educator and Pharmacy Glycemic control consult placed- to simplify regimen, oral agent preferred, avoiding Metformin and othe agents in light of alcoholism recommendation: Glipizide 5mg po daily -- close outpatient ff up Alcoholism -- Patient reports main stressor is recent multiple deaths in the family which led him to drink alcohol again denies depression --No signs of overt alcohol withdrawal while admitted except for mild tremors --completed alcohol withdrawal protocol including gabapentin taper --Patient interested in outpatient alcohol cessation programs hx chronic pain/narcotic abuse as per records/terminated medication agreement --PDMP checked, no issues --Management per above Situational hypertension --Blood pressure improving, monitor ADD/mood disorder as per records, at baseline Hx PE as per records, not on anticoagulation secondary to alcoholism --Lovenox daily subcutaneous GERD/Renae's esophagus on PPI DVT prophylaxis per Lovenox subcu Full code plan of care discussed with patient in detail and at length all questions answered he is understanding, agreeable, comfortable with the plan of care Disposition d/c home today ff up with PCP within 1 week plan of care discussed with patient in detail and at length all questions answered he is understanding, agreeable, comfortable with the plan of care Admission and Anticipated Discharge Date Admission Date: October 17, 2020 Subjective ff up for acute alcoholic pancreatitis, recurrent, etc seen resting in bed, comfortable not in distress pleasant states he feels much better overall abdominal tenderness much better tolerating soft diet well no nausea, chills, dyspnea, chest pain very mild tremors, no anxiety, confusion, hallucinations, sweating no other symptoms ambulating with no problems states that he is ready and would like to be discharged today Review of Systems Review of Systems: All systems reviewed & are unremarkable except as noted in Subjective Physical Exam Physical Exam: General- oriented x 3, not in distress, speaks in sentences with no effort or accessory muscle use Eyes- anicteric Neck- no JVD Lungs- clear breath sounds bilaterally no crackles Heart- normal rate, regular rhythm; no murmurs Abdomen- normal bowel sounds, nondistended, soft, nontender Extremities- no pretibial edema, no calf tenderness Neuro- alert, oriented x 3; no gross focal neurologic deficits Skin- warm & dry Results & Data Results & Data ([facility]) Vital Signs (Past 12 Hours) Vital Signs Temp Pulse Pulse Resp BP BP Pulse Ox 10/20/20 11:48 37 C 75 16 130/83 99 10/20/20 07:34 36.8 C 82 18 129/80 99 10/20/20 06:20 56 L 10/20/20 04:04 37.1 C 75 20 106/66 98 all noted and reviewed including below Laboratory Results Laboratory Results - last 24 hr 10/19/20 10/19/20 10/20/20 16:28 20:25 06:39 WBC 3.81 L RBC 4.39 L Hgb 14.8 Hct 41.1 L MCV 93.6 MCH 33.7 MCHC 36.0 RDW Std Deviation 39.9 RDW Coeff of Gucci 11.8 Plt Count 108 L MPV 9.5 Immature Gran % (Auto) 0.0 Neut % (Auto) 60.2 Lymph % (Auto) 26.2 [place] % (Auto) 8.1 Eos % (Auto) 5.2 Baso % (Auto) 0.3 Neut # (Auto) 2.29 Lymph # (Auto) 1.00 L [place] # (Auto) 0.31 Eos # (Auto) 0.20 Baso # (Auto) 0.01 Immature Gran # (Auto) 0.00 Sodium Potassium Chloride Carbon Dioxide Anion Gap BUN Creatinine Est Cr Clr Drug Dosing Est GFR ( Amer) Est GFR (Non-Af Amer) BUN/Creatinine Ratio Glucose POC Glucose 134 H 126 H Calcium Total Bilirubin Direct Bilirubin AST ALT Alkaline Phosphatase Total Protein Albumin Lipase 10/20/20 10/20/20 10/20/20 06:39 07:26 11:34 WBC RBC Hgb Hct MCV MCH MCHC RDW Std Deviation RDW Coeff of Gucci Plt Count MPV Immature Gran % (Auto) Neut % (Auto) Lymph % (Auto) [place] % (Auto) Eos % (Auto) Baso % (Auto) Neut # (Auto) Lymph # (Auto) [place] # (Auto) Eos # (Auto) Baso # (Auto) Immature Gran # (Auto) Sodium 138 Potassium 4.3 D Chloride 107 Carbon Dioxide 28 Anion Gap 3.0 BUN 6 L Creatinine 0.80 Est Cr Clr Drug Dosing 139.0 Est GFR ( Amer) 124.2 Est GFR (Non-Af Amer) 107.1 BUN/Creatinine Ratio 7.5 L Glucose 185 H POC Glucose 153 H 149 H Calcium 9.0 Total Bilirubin 0.9 Direct Bilirubin 0.2 AST 57 H ALT 120 H Alkaline Phosphatase 193 H Total Protein 6.1 L Albumin 2.4 L Lipase 271
--- NOTE | 2020-10-20 13:45 | Discharge Summary ---
Date of Service October 20, 2020 Admission HPI Per Admitting Provider History is obtained from the patient and records. Medical history is significant for ADD/mood disorder as per records, DM2, medication noncompliance, GERD/Renae's esophagus, recurrent alcoholic pancreatitis, hx PE as per records, history of chronic pain. hx narcotic abuse as per records/terminated medication agreement Recent confinement August 2020 for alcoholic pancreatitis. Patient left AGAINST MEDICAL ADVICE after medical provider did not yield to patient demands for IV Dilaudid for analgesia as per documentation. Patient started drinking again last week after being stressed out by multiple deaths in the family. Yesterday patient noted achy epigastric pain going across his belly similar to pancreatitis attack. Symptoms associated with nausea, emesis, watery diarrhea symptoms. No fever, no chills. Patient denies chest pain, S OB. Patient states that only morphine and Dilaudid worked for his abdominal pain. Initial BSG 400s. Current BSG 273. MEDICAL HISTORY: As above. SURGERIES: Appendectomy, cholecystectomy, vascular device placement. Back surgery FAMILY HISTORY: There is a family history of mood disorder. Alcoholism, heart disease. 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 Admission Exam Per Admitting Provider GENERAL: looks older than stated age, no respiratory distress SKIN: Normal color, warm HEENT: Alopecia, [place] palpebral conjunctivae, no ptosis, dry buccal mucosa, poor dentition NECK : Supple, short neck, no tenderness CHEST : CTA, no tenderness HEART : Tachycardic , no obvious murmurs ABDOMEN: Some distention, epigastric tenderness EXTREMITIES : No LE swelling/tenderness, no other conspicuous deformities noted NEUROLOGIC : Coherent, no facial asymmetry, no other gross focality Principal Diagnosis RECURRENT ALCOHOLIC PANCREATITIS DIABETIC KETOACIDOSIS, SECONDARY TO MEDICATION NONADHERENCE Discharge Exam General- oriented x 3, not in distress, speaks in sentences with no effort or accessory muscle use Eyes- anicteric Neck- no JVD Lungs- clear breath sounds bilaterally no crackles Heart- normal rate, regular rhythm; no murmurs Abdomen- normal bowel sounds, nondistended, soft, nontender Extremities- no pretibial edema, no calf tenderness Neuro- alert, oriented x 3; no gross focal neurologic deficits Skin- warm & dry Discharge Data Allergies Allergy/AdvReac Type Severity Reaction Status Date / Time No Known Allergies Allergy Verified 10/17/20 02:35 Consultations 10/17/20 02:55 ED Decision to Admit Stat 10/17/20 05:15 Consult Case Management - Discharge Planning Routine 10/17/20 08:37 Consult Gastroenterology Routine Ordered Studies 10/17/20 08:34 CT abdomen w IV con Stat COMPARISON: CT abdomen pelvis 08/30/2020 TECHNIQUE: Multiple axial CT images of the abdomen were obtained following the intravenous ministration of 94 mL Optiray 320. A dose lowering technique was used consistent with the principals of MARCIE. FINDINGS: The imaged inferior cardiac chambers are unremarkable. Clear lung bases. No pneumatosis or pneumoperitoneum. The spleen and adrenal glands are unremarkable. Cholecystectomy. Hepatic steatosis. Patency of the hepatic and portal veins. Mild interstitial and peripancreatic edema with trace free fluid compatible with acute pancreatitis. Mild to moderate pancreatic atrophy. Homogeneous enhancement of the pancreas. No acute peripancreatic fluid collection or pancreatic ductal dilation. Upper abdominal varices redemonstrated. Unremarkable kidneys. No hydronephrosis. No aortic aneurysm. Prominent precaval lymph nodes measuring up to 9 mm are likely reactive. Mild wall thickening of the duodenum is also likely reactive. Scattered small bowel air-fluid levels without bowel obstruction. No bowel wall thickening. Tiny fat filled periumbilical hernia. Postoperative changes of the lower lumbar spine are partially imaged. No acute fracture. IMPRESSION: 1. Findings compatible with acute uncomplicated pancreatitis. No acute peripancreatic fluid collection, pancreatic necrosis or pancreatic ductal dilation. 2. No bowel obstruction. 3. Upper abdominal varices redemonstrated. 4. Hepatic steatosis. 5. Cholecystectomy. Hospital Course (1) Recurrent pancreatitis: (1) Recurrent pancreatitis: Secondary to EtOH abuse --CT abdomen pelvis: 1. Findings compatible with acute uncomplicated pancreatitis. No acute peripancreatic fluid collection, pancreatic necrosis or pancreatic ductal dilation. 2. No bowel obstruction. 3. Upper abdominal varices redemonstrated. 4. Hepatic steatosis. 5. Cholecystectomy. --Lipase 1166--> 700s--> 271 (normal) --advances diet to soft, low fiber and fat--> tolerated well given vigorous LR 200 cc/h--> 75cc/hr -- pain managed with PRN Morphine (weaned off daily) Ofirmev IV every 8 hours, Toradol 30 mg every 6 hours as needed, Roxicodone 5-10 mg every 4 hours as needed Discussed importance of utilizing IV narcotics only for short duration to prevent side effects and dependence Patient declined inpatient Alcohol Rehab, he prefers to pursue outpatient treatment for alcoholism Discussed importance of alcohol cessation to prevent acute pancreatitis, recurrent, which could be life-threatening Patient verbalized understanding and agreement with above DKA DM 2 - A1c 8.6 --Secondary to nonadherence to insulin-which patient admitted Underlying acute pancreatitis --Resolved --given insulin Lantus and sliding scale --Discussed importance of adherence to DM diet, medications to avoid DM complications and DKA which is a life-threatening condition --Patient verbalized understanding and agreement -- DM educator and Pharmacy Glycemic control consult placed- to simplify regimen, oral agent preferred, avoiding Metformin and othe agents in light of alcoholism recommendation: Glipizide 5mg po daily -- close outpatient ff up Alcoholism -- Patient reports main stressor is recent multiple deaths in the family which led him to drink alcohol again denies depression --No signs of overt alcohol withdrawal while admitted except for mild tremors --completed alcohol withdrawal protocol including gabapentin taper --Patient interested in outpatient alcohol cessation programs Abnormal CT abdomen and pelvis findings Please refer to full report in the Ordered Studies section above Hepatic steatosis. Upper abdominal varices re-demonstrated. Prominent precaval lymph nodes measuring up to 9 mm are likely reactive. Further work up, management, and ff up as outpatient hx chronic pain/narcotic abuse as per records/terminated medication agreement --PDMP checked, no issues --Management per above Situational hypertension --Blood pressure improving, monitor ADD/mood disorder as per records, at baseline Hx PE as per records, not on anticoagulation secondary to alcoholism --Lovenox daily subcutaneous GERD/Renae's esophagus on PPI DVT prophylaxis per Lovenox subcu Full code plan of care discussed with patient in detail and at length all questions answered he is understanding, agreeable, comfortable with the plan of care Disposition d/c home today ff up with PCP within 1 week plan of care discussed with patient in detail and at length all questions answered he is understanding, agreeable, comfortable with the plan of care Total Time Total Time Spent Total Time Spent (In Minutes): 60 minutes Discharge Plan Discharge Items Patient Disposition: Home - Self-Care Reason For Visit: DKA, ETOH WITHDRAWAL Discharge Diagnosis: RECURRENT ALCOHOL-RELATED PANCREATITIS DIABETIC KETOACIDOSIS- HIGHLY ELEVATED BLOOD SUGAR LEADING TO INCREASED ACID PRODUCTION IN THE BODY Activity: Resume your previous activity Activity Comment: GRADUALLY TOLERATED Lifting: Wait until after follow-up appointment Exercise/Sports: Wait until after follow-up appointment Driving/Machine Use: NO DRIVING UNTIL RE-EVALUATED AND ALLOWED BY PRIMARY CARE PHYSICIAN Non-emergency contact: Primary Care Provider Call non-emergency contact if: you have any medication questions, your symptoms worsen, your pain is not controlled, your pain is worsening, your pain is unusual for you, your pain is concerning for you and you have a fever Follow-up/Referrals: Dhiraj Myers DO [Primary Care Provider] - (Date & Time 10/23/2020 11:00 AM Provider Dhiraj Myers DO Department [facility] ) Diet: Carb Consistent or DM2 and Heart Healthy Addtl Attending Provider Instructions: PLEASE REVIEW YOUR NEW MEDICATION LIST AND FOLLOW INSTRUCTIONS CAREFULLY. YOUR NEW MEDICATIONS ARE: GLIPIZIDE - FOR DIABETES. GABAPENTIN- FOR ALCOHOL WITHDRAWAL MULTIVITAMIN, THIAMINE, FOLATE- SUPPLEMENTS ACETAMINOPHEN- NEEDED FOR PAIN ALWAYS TAKE GLIPIZIDE EVERYDAY AND FOLLOW DIABETIC DIET TO AVOID MEDICAL COMPLICATIONS, INCLUDING DKA WHICH CAN BE LIFE THREATENING. DRINK PLENTY OF WATER TO AVOID DEHYDRATION, KIDNEY DAMAGE. ONLY TAKE YOUR MEDICATIONS PRESCRIBED. DO NO TAKE MORE THAN 2,000MG OF TYLENOL PER DAY TO PREVENT LIVER DAMAGE. NO ALCOHOL CONSUMPTION TO PREVENT ANOTHER PANCREATITIS EPISODE WHICH CAN BE LIFE THREATENING. PLEASE FOLLOW UP WITH PRIMARY CARE PHYSICIAN OUTLINED ABOVE. CALL PRIMARY CARE PHYSICIAN OR RETURN TO THE ER IMMEDIATELY IF WITH RECURRENCE, WORSENING OF SYMPTOMS, INCLUDING ABDOMINAL PAIN ,NAUSEA/VOMITING, FEVER/CHILLS, TREMORS, ANXIETY, CONFUSION. Pending Studies at Discharge: No Stand-Alone Forms: [facility], Smoking Cessation Medications and DC Order Prescriptions: New gabapentin 600 mg Tablet 600 mg PO Q24H Qty: 1 RF: 0 folic acid 1 mg Tablet 1 mg PO QAM Qty: 10 RF: 0 multivitamin [Daily-Chriss] Tablet 1 tab PO QAM Qty: 10 RF: 0 thiamine HCl (vitamin B1) [Vitamin B-1] 100 mg Tablet 100 mg PO QAM Qty: 10 RF: 0 acetaminophen [Tylenol 8 Hour] 650 mg tablet extended release 650 mg PO Q8H PRN (Reason: fever or pain) Qty: 14 RF: 0 glipizide 5 mg tablet extended release 24hr 5 mg PO DAILY Qty: 30 RF: 1 Continued pantoprazole 40 mg tablet,delayed release (DR/EC) 40 mg PO QAM RF: 0 paroxetine HCl 20 mg tablet 20 mg PO QAM RF: 0 Discharge Orders: Discharge Order (Routine); Ordered 10/20/20 Ordered By: Antony Lind Admission Data Admit Date/Time: 10/17/20 03:28 Attending Provider: Antony Lind Admit Provider: Bishop Enamorado Primary Care Provider: Dhiraj Myers Other Providers: Bishop Enamorado ; Margaret Banegas Other Interventions: Discharge Summary Assessment (RN) Last Done: 10/20/20 13:34
[2020-10-20] MEDS ORDERED: GABAPENTIN 600 MG TAB PO SCH (18:00)
== END 2020-10-20 13:56 | disposition left against medical advice (07) | DRG 438 ==
LOC: ED 02:11 → 2N 03:28

== ENCOUNTER 2020-11-18 19:52 | Inpatient (IN) ==
[2020-11-18 20:44] LABS: Basophils # (auto) 0.03 K/uL (0-0.2); Basophils % (auto) 0.5 %; Eosinophils # (auto) 0.09 K/uL (0-0.5); Eosinophils % (auto) 1.5 %; Hematocrit (blood only) 47.7 % (42-52); Hemoglobin 16.9 g/dL (14.0-18.0); Immature Granulocytes # (auto) 0.01 K/uL (0.00-0.02); Immature Granulocytes % (auto) 0.2 %; Lymphocytes # (auto) 0.94 K/uL (1.2-3.4); Lymphocytes % (auto) 16.2 %; Mean Corpuscular Hemoglobin 33.1 pg (25-34); Mean Corpuscular Hgb Conc 35.4 g/dL (32-36); Mean Corpuscular Volume 93.3 fL (80-100); Mean Platelet Volume 9.4 fL (7.4-10.4); Monocytes # (auto) 0.59 K/uL (0.11-0.59); Monocytes % (auto) 10.2 %; Neutrophils # (auto) 4.15 K/uL (1.4-6.5); Neutrophils % (auto) 71.4 %; Platelet Count 145 K/uL (130-400); RDW Coefficient of Variation 12.3 % (11.5-14.5); RDW Standard Deviation 42.1 fL (36.4-46.3); Red Blood Count 5.11 M/uL (4.7-6.1); White Blood Count 5.81 K/uL (4.8-10.8)
[2020-11-18 21:14] LABS: Albumin Globulin Ratio 0.8 (0.9-2); Albumin Level 3.6 gm/dl (3.4-5.0); Bilirubin,Total 1.2 mg/dl (0.2-1); Calcium 9.9 mg/dl (8.5-10.1); Creatinine Clr Calc Pharmacy 108.7 ml/min; Est GFR (African American) 103.4; Est GFR (Non-African American) 89.2; Globulin 4.4 gm/dl (2.5-4.0)
[2020-11-18 21:56] LABS: Beta-Hydroxybutyrate 16.38 mg/dl (0.2-2.81)
[2020-11-18] MEDS ORDERED: DROPERIDOL 5 MG/2 ML VIAL IV STA (22:23)
[2020-11-18] MEDS ORDERED: SODIUM CHLORIDE 0.9% 1000ML 1,000 ML IV ONE (22:23)
[2020-11-18] MEDS ORDERED: diphenhydrAMINE 50 MG/ML VIAL IV STA (22:25)
[2020-11-18 23:18] LABS: Magnesium 2.2 mg/dl (1.8-2.4); Troponin I < 0.015 ng/ml (0-0.045)
[2020-11-18 23:21] LABS: Base Excess VBG -0.8 mEq/L; HCO3 VBG 25 mmol/L; PCO2 VBG 44 mmHg (38-50); PO2 VBG 25 mmHg; pH VBG 7.37 (7.36-7.41)
[2020-11-18 23:23] LABS: Oxygen Saturation VBG < 60.0 %
[2020-11-18] MEDS ORDERED: KETOROLAC TROMETHAMINE 15 MG/ML VIAL IV STA (23:57)
[2020-11-18] MEDS ORDERED: FAMOTIDINE 20MG/5ML IV PUSH IV STA (23:57)
[2020-11-18] MEDS ORDERED: MULTI-VITAMIN INFUSION 10 ML, THIAMINE HCL 100 MG, FOLIC ACID 1 MG in SODIUM CHLORIDE 0... IV ONE (23:57)
[2020-11-19 00:11] LABS: Influenza A virus by PCR Negative (Neg); Influenza B virus by PCR Negative (Neg); RSV by PCR Negative (Neg); SARS CoV2 RNA(COVID-19) InHosp NEGATIVE (Negative)
--- NOTE | 2020-11-19 00:16 | Emergency Department Note ---
History of Present Illness General Chief complaint: Abdominal Pain Stated complaint: ABDOMINAL PAINS, GOES AROUND BACK, CHEST PAIN Time Seen by Provider: 11/18/20 22:15 History of Present Illness Maximum Pain Intensity: 6 This 45-year-old presents to the ER complaining of epigastric pain has a history of pancreatitis that has been drinking alcohol this past week Location: Upper abdomen Quality: Painful Severity: Moderate Duration: Today Timing: Today Context: Patient was concerned and came in Modifying factors: better with nothing; worse with movement Patient has a history of pancreatitis. Symptoms feel similar. He has been drinking alcohol this past week. Last drink was last night. Patient denies chest pain, dyspnea, fevers, flulike illness. Patient is requesting admission for his recurrent pancreatitis. Home Medications Medication Instructions Recorded Confirmed Type paroxetine HCl 20 mg PO QAM 12/20/19 11/18/20 History pantoprazole 40 mg PO QAM 01/18/20 11/18/20 History acetaminophen [Tylenol 8 Hour] 650 mg PO Q8H PRN #14 tab 10/20/20 11/18/20 Rx gabapentin 600 mg PO Q24H #1 tab 10/20/20 11/18/20 Rx glipizide 5 mg PO DAILY #30 tab 10/20/20 11/18/20 Rx Allergies Allergy/AdvReac Type Severity Reaction Status Date / Time No Known Allergies Allergy Verified 11/18/20 23:07 Past Med/Surg History Medical History (Updated 11/19/20 @ 00:16 by Maryan Jo PA-C) Abdominal pain Acute hyperglycemia Alcohol abuse (Unknown) Alcohol abuse Renae's esophagus (Unknown) "per EGD 11/23/09 " On 05/31/11 09:06 Martinez Jose wrote "per EGD 11/23/09 " Chest pain Depression Depression DM type 2 (diabetes mellitus, type 2) Encounter for alcohol abuse counseling and surveillance Encounter for pre-operative examination Encounter for tobacco use cessation counseling H/O acute pancreatitis "recurrent" History of substance abuse Hyperglycemia Intentional drug overdose Lumbar degenerative disc disease Mood disorder Mood disorder Neuropathy Pancreatitis Panic disorder Pulmonary embolism Suicidal ideation Suicidal ideation Suicide attempt Surgical History H/O esophagogastroduodenoscopy "EGD 11/23/2009- mild gastritis, suspicious for gastroparesis, Z-line irregular EUS 02/04/2010- mild chronic pancreatitis, pronounced cholesterolosis of gallbladder, no biliary dilation or stones, probable gastroparesis EGD 10/31/2014- gastritis" S/P lumbar fusion L4-S1 2014 Family History Father Alcohol abuse Social History Smoking Status: Current every day smoker Tobacco Type: Smokeless Tobacco (Dip or Chew) Second Hand Exposure: No; Hx Alcohol Use: Yes Alcohol type: beer Hx Substance Use: No Preferred Language: Malian Communication Ability: Effective Recruiting Specialist Required: No Beliefs That Will Affect Care: None marital status: Current Living Situation: Family Current Living Situation Comment: with mother Feels Safe at Home: Yes Assistive Devices: None Review of Systems A total of 10 systems reviewed and were otherwise negative Physical Exam Vital Signs Vital Signs - 24 hr 11/18/20 20:11 11/18/20 22:10 11/18/20 23:01 Temperature 36.6 C Temperature Source Temporal Artery Scan Pulse Rate 110 H Pulse Rate [Finger] 95 H 93 H Respiratory Rate 18 18 18 Respiratory Effort / Characteristics Non-Labored Respiratory Depth Normal Normal Normal Respiratory Pattern Blood Pressure [Right Arm] 139/101 H 128/89 Blood Pressure Mean [Right Arm] 113 102 Blood Pressure Position [Right Arm] Pulse Oximetry 98 99 97 Oxygen Delivery Method Room Air Room Air Room Air Sepsis Recent Fever Within 48 Hours No Sepsis New/Unexplained Change in Mental Status No Sepsis Action Taken by Nursing No Action Required 11/19/20 00:07 Temperature Temperature Source Pulse Rate Pulse Rate [Finger] 95 H Respiratory Rate 16 Respiratory Effort / Characteristics Non-Labored Spontaneous Respiratory Depth Normal Respiratory Pattern Regular Blood Pressure [Right Arm] 116/81 Blood Pressure Mean [Right Arm] 92 Blood Pressure Position [Right Arm] Lying Pulse Oximetry 98 Oxygen Delivery Method Room Air Sepsis Recent Fever Within 48 Hours Sepsis New/Unexplained Change in Mental Status Sepsis Action Taken by Nursing VITALS: Vitals are noted on the nurse's note and reviewed by myself. Vital signs stable. GENERAL: White male pacing the room, in no acute distress, nondiaphoretic, well- developed well-nourished. SKIN: Capillary reflex less than 2 seconds. HEENT: Normocephalic. PERRLA. EOMI. Nares patent. Mucous membranes moist. Neck is supple without nuchal rigidity. HEART: Regular rate and rhythm LUNGS: Clear to auscultation bilaterally without wheezes, rales or rhonchi. No retractions or accessory muscle use. ABDOMEN: Positive bowel sounds x 4. Normal tympanic percussion. Soft, tender to palpation upper abdomen r, without masses or organomegaly. Estrella sign n egative. No guarding or rebound tenderness. No CVA tenderness MUSCULOSKELETAL: No gross musculoskeletal defects. NEURO: Patient was alert and oriented to person place and time. No focal neurological deficits. Course Administered Medications Discontinued Medications Diphenhydramine HCl (Diphenhydramine 50 Mg/Ml Vial) 25 mg IV NOW STA Stop: 11/18/20 22:26 Last Admin: 11/18/20 22:57 Dose: 25 mg Documented by: [id number] Droperidol (Droperidol 5 Mg/2 Ml Vial) 1.25 mg IV ONE STA Stop: 11/18/20 22:24 Last Admin: 11/18/20 22:57 Dose: 1.25 mg Documented by: [id number] Famotidine (Famotidine 20mg/5ml Iv Push) 20 mg IV ONE STA Stop: 11/18/20 23:58 Last Admin: 11/19/20 00:06 Dose: 20 mg Documented by: [id number] Sodium Chloride (Nss 1000ml) 1,000 mls @ 999 mls/hr IV .Q1H1M ONE Stop: 11/18/20 23:23 Last Infusion: 11/18/20 23:50 Dose: 0 mls/hr Documented by: [id number] Admin: 11/18/20 22:57 Dose: 999 mls/hr Documented by: [id number] Multivitamins 10 ml/ Thiamine HCl 100 mg/ Folic Acid 1 mg/Sodium Chloride 1,011.2 mls @ 1,011.2 mls/hr IV .Q1H ONE Stop: 11/19/20 00:56 Last Admin: 11/19/20 00:22 Dose: 1,011.2 mls/hr Documented by: [id number] Ketorolac Tromethamine (Ketorolac Tromethamine 15 Mg/Ml Vial) 10 mg IV NOW STA Stop: 11/18/20 23:58 Last Admin: 11/19/20 00:05 Dose: 10 mg Documented by: [id number] Medical Decision Making Medical Records Attestation: I reviewed the patient's medical records. Home Medications Current Medication List: was personally reviewed by me Laboratory Data Attestation: I reviewed the patient's lab results. Result diagrams: 11/18/20 20:28 11/18/20 20:28 Lab Results 11/18/20 11/18/20 11/18/20 Range/Units 20:28 20:28 22:45 WBC 5.81 (4.8-10.8) K/uL RBC 5.11 (4.7-6.1) M/uL Hgb 16.9 (14.0-18.0) g/dL Hct 47.7 (42-52) % MCV 93.3 (80-100) fL MCH 33.1 (25-34) pg MCHC 35.4 (32-36) g/dL RDW Std Deviation 42.1 (36.4-46.3) fL RDW Coeff of Gucci 12.3 (11.5-14.5) % Plt Count 145 (130-400) K/uL MPV 9.4 (7.4-10.4) fL Immature Gran % (Auto) 0.2 % Neut % (Auto) 71.4 % Lymph % (Auto) 16.2 % Callaway % (Auto) 10.2 % Eos % (Auto) 1.5 % Baso % (Auto) 0.5 % Neut # (Auto) 4.15 (1.4-6.5) K/uL Lymph # (Auto) 0.94 L (1.2-3.4) K/uL Callaway # (Auto) 0.59 (0.11-0.59) K/uL Eos # (Auto) 0.09 (0-0.5) K/uL Baso # (Auto) 0.03 (0-0.2) K/uL Immature Gran # (Auto) 0.01 (0.00-0.02) K/uL VBG pH (7.36-7.41) VBG pCO2 (38-50) mmHg VBG pO2 mmHg VBG HCO3 mmol/L VBG O2 Saturation % VBG Base Excess mEq/L Sodium 130 L (136-145) mmol/L Potassium 4.0 (3.5-5.1) mmol/L Chloride 96 L (98-107) mmol/L Carbon Dioxide 23 (21-32) mmol/L Anion Gap 11.0 (3-11) BUN 6 L (7-18) mg/dl Creatinine 1.00 (0.6-1.4) mg/dl Est Cr Clr Drug Dosing 108.7 ml/min Est GFR ( Amer) 103.4 Est GFR (Non-Af Amer) 89.2 BUN/Creatinine Ratio 6.0 L (10-20) Glucose 378 H* (70-99) mg/dl POC Glucose (70-99) mg/dl Calcium 9.9 (8.5-10.1) mg/dl Magnesium (1.8-2.4) mg/dl Total Bilirubin 1.2 H (0.2-1) mg/dl AST 67 H (15-37) U/L ALT 95 H (12-78) U/L Alkaline Phosphatase 116 (45-117) U/L Troponin I (0-0.045) ng/ml Total Protein 8.0 (6.4-8.2) gm/dl Albumin 3.6 (3.4-5.0) gm/dl Globulin 4.4 H (2.5-4.0) gm/dl Albumin/Globulin Ratio 0.8 L (0.9-2) Lipase 337 (73-393) U/L Beta-Hydroxybutyric Acd 16.38 H (0.2-2.81) mg/dl Ethyl Alcohol mg/dL 118.9 H (0-3) mg/dl COVID-19 Eval Order SARS-CoV-2 (PCR) (Negative) Influenza Type A (PCR) (Neg) Influenza Type B (PCR) (Neg) RSV (RT-PCR) (Neg) 11/18/20 11/18/20 11/18/20 Range/Units 22:45 23:02 23:02 WBC (4.8-10.8) K/uL RBC (4.7-6.1) M/uL Hgb (14.0-18.0) g/dL Hct (42-52) % MCV (80-100) fL MCH (25-34) pg MCHC (32-36) g/dL RDW Std Deviation (36.4-46.3) fL RDW Coeff of Gucci (11.5-14.5) % Plt Count (130-400) K/uL MPV (7.4-10.4) fL Immature Gran % (Auto) % Neut % (Auto) % Lymph % (Auto) % Callaway % (Auto) % Eos % (Auto) % Baso % (Auto) % Neut # (Auto) (1.4-6.5) K/uL Lymph # (Auto) (1.2-3.4) K/uL Callaway # (Auto) (0.11-0.59) K/uL Eos # (Auto) (0-0.5) K/uL Baso # (Auto) (0-0.2) K/uL Immature Gran # (Auto) (0.00-0.02) K/uL VBG pH (7.36-7.41) VBG pCO2 (38-50) mmHg VBG pO2 mmHg VBG HCO3 mmol/L VBG O2 Saturation % VBG Base Excess mEq/L Sodium (136-145) mmol/L Potassium (3.5-5.1) mmol/L Chloride (98-107) mmol/L Carbon Dioxide (21-32) mmol/L Anion Gap (3-11) BUN (7-18) mg/dl Creatinine (0.6-1.4) mg/dl Est Cr Clr Drug Dosing ml/min Est GFR ( Amer) Est GFR (Non-Af Amer) BUN/Creatinine Ratio (10-20) Glucose (70-99) mg/dl POC Glucose (70-99) mg/dl Calcium (8.5-10.1) mg/dl Magnesium 2.2 (1.8-2.4) mg/dl Total Bilirubin (0.2-1) mg/dl AST (15-37) U/L ALT (12-78) U/L Alkaline Phosphatase (45-117) U/L Troponin I < 0.015 (0-0.045) ng/ml Total Protein (6.4-8.2) gm/dl Albumin (3.4-5.0) gm/dl Globulin (2.5-4.0) gm/dl Albumin/Globulin Ratio (0.9-2) Lipase (73-393) U/L Beta-Hydroxybutyric Acd (0.2-2.81) mg/dl Ethyl Alcohol mg/dL (0-3) mg/dl COVID-19 Eval Order [facility]Rsv at [facility] SARS-CoV-2 (PCR) NEGATIVE (Negative) Influenza Type A (PCR) Negative (Neg) Influenza Type B (PCR) Negative (Neg) RSV (RT-PCR) Negative (Neg) 11/18/20 11/19/20 Range/Units 23:13 00:11 WBC (4.8-10.8) K/uL RBC (4.7-6.1) M/uL Hgb (14.0-18.0) g/dL Hct (42-52) % MCV (80-100) fL MCH (25-34) pg MCHC (32-36) g/dL RDW Std Deviation (36.4-46.3) fL RDW Coeff of Gucci (11.5-14.5) % Plt Count (130-400) K/uL MPV (7.4-10.4) fL Immature Gran % (Auto) % Neut % (Auto) % Lymph % (Auto) % Callaway % (Auto) % Eos % (Auto) % Baso % (Auto) % Neut # (Auto) (1.4-6.5) K/uL Lymph # (Auto) (1.2-3.4) K/uL Callaway # (Auto) (0.11-0.59) K/uL Eos # (Auto) (0-0.5) K/uL Baso # (Auto) (0-0.2) K/uL Immature Gran # (Auto) (0.00-0.02) K/uL VBG pH 7.37 (7.36-7.41) VBG pCO2 44 (38-50) mmHg VBG pO2 25 mmHg VBG HCO3 25 mmol/L VBG O2 Saturation < 60.0 % VBG Base Excess -0.8 mEq/L Sodium (136-145) mmol/L Potassium (3.5-5.1) mmol/L Chloride (98-107) mmol/L Carbon Dioxide (21-32) mmol/L Anion Gap (3-11) BUN (7-18) mg/dl Creatinine (0.6-1.4) mg/dl Est Cr Clr Drug Dosing ml/min Est GFR ( Amer) Est GFR (Non-Af Amer) BUN/Creatinine Ratio (10-20) Glucose (70-99) mg/dl POC Glucose 259 H (70-99) mg/dl Calcium (8.5-10.1) mg/dl Magnesium (1.8-2.4) mg/dl Total Bilirubin (0.2-1) mg/dl AST (15-37) U/L ALT (12-78) U/L Alkaline Phosphatase (45-117) U/L Troponin I (0-0.045) ng/ml Total Protein (6.4-8.2) gm/dl Albumin (3.4-5.0) gm/dl Globulin (2.5-4.0) gm/dl Albumin/Globulin Ratio (0.9-2) Lipase (73-393) U/L Beta-Hydroxybutyric Acd (0.2-2.81) mg/dl Ethyl Alcohol mg/dL (0-3) mg/dl COVID-19 Eval Order SARS-CoV-2 (PCR) (Negative) Influenza Type A (PCR) (Neg) Influenza Type B (PCR) (Neg) RSV (RT-PCR) (Neg) MDM Narrative Prior records/ancillary studies reviewed. Triage Nursing notes reviewed. Additional history obtained from nursing. The patient's history was concerning for abdominal pain. Differential diagnosis: Etiologies such as appendicitis, diverticulitis, PUD, biliary pathology, UTI, pancreatitis, obstruction, mesenteric ischemia, aortic pathology, infections, inflammatory bowel disease, renal colic, as well as others were entertained. Physical examination findings: As above. ER treatment provided: An order was placed for continuous cardiac monitoring. The monitor shows a rate of 60-1 10 with a sinus rhythm. IV fluids, droperidol, Benadryl, Toradol, Pepcid On reassessment the patient felt better. Diagnostics interpreted by me: ECG: For upper abdominal pain EKG: Normal sinus, normal intervals, no acute ST-T wave changes, rate of 97. Impression normal sinus rhythm interpreted by myself I think arrhythmia is unlikely. EKG shows normal sinus rhythm with no interval abnormalities such as QT prolongation or WPW. There are no findings to suggest Brugada syndrome. Cardiac monitoring in the emergency department reveals no tachycardic or bradycardic dysrhythmia. Hypertrophic cardiomyopathy was considered but there are no clear historical elements pointing toward this. EKG is not suggestive. The QRS voltage is not extremely large and there are no suggestive Q waves. The labs revealed hyperglycemia without DKA Elevated alcohol Consultation: A consultation was placed with the hospitalist, Dr. Sousa. The case was discussed and diagnostics were reviewed. The patient was evaluated in the ER for further treatment. Exam and history seem consistent with upper abdominal pain concerns for recurrent pancreatitis. Lipase is normal. Patient has had pancreatitis with a normal lipase in the past. He was admitted last month with similar symptoms. Patient is requesting admission. Medicine was consulted. He will be evaluated for possible admission. By the evaluation outlined above emergent etiologies such as appendicitis, diverticulitis, PUD, biliary pathology, UTI, obstruction, mesenteric ischemia, aortic pathology, infections, inflammatory bowel disease, renal colic, as well as others were deemed relatively unlikely. The pt informed about the findings as listed above. All questions were answered and pleased with the treatment. The chart was completed utilizing [employer] Speech voice recognition software. Grammatical errors, random word insertions, pronoun errors, and incomplete sentences are an occassional consequence of this system due to software limitations, ambient noise, and hardware issues. Any formal questions or concerns about the content, text, or information contained within the body of this dictation should be directly addressed to the physician communication assistant for clarification. Impression & Plan DM type 2 (diabetes mellitus, type 2), Alcohol abuse, Pancreatitis Discharge Plan Visit Data Chief Complaint: Abdominal Pain Stated Complaint: ABDOMINAL PAINS, GOES AROUND BACK, CHEST PAIN ED Provider: January Manning ED Midlevel Provider: Maryan Jo Discharge Problem: DM type 2 (diabetes mellitus, type 2), Alcohol abuse, Pancreatitis Patient Disposition: Being Evaluated by Hospitalist Condition: Fair Forms Stand Alone Forms: [facility] [place] Prescriptions Prescriptions: No Action pantoprazole 40 mg tablet,delayed release (DR/EC) 40 mg PO QAM RF: 0 paroxetine HCl 20 mg tablet 20 mg PO QAM RF: 0 gabapentin 600 mg Tablet 600 mg PO Q24H Qty: 1 RF: 0 acetaminophen [Tylenol 8 Hour] 650 mg tablet extended release 650 mg PO Q8H PRN (Reason: fever or pain) Qty: 14 RF: 0 glipizide 5 mg tablet extended release 24hr 5 mg PO DAILY Qty: 30 RF: 1 Referrals Referrals: Dhiraj Myers, DO [Primary Care Provider] - Discharge Problem: DM type 2 (diabetes mellitus, type 2) Qualifiers: 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
[2020-11-19] MEDS ORDERED: INSULIN ASPART 100 UNITS/ML 3 ML PEN SC STA (01:04)
[2020-11-19] MEDS ORDERED: ACETAMINOPHEN 325 MG TAB PO PRN (02:46)
[2020-11-19] MEDS ORDERED: ATIVAN IV ALCOHOL WITHDRAWL IV PRN (02:46)
[2020-11-19] MEDS ORDERED: LORazepam 1 MG/2 ML VIAL IV PRN (02:46)
[2020-11-19] MEDS ORDERED: GABAPENTIN 600 MG TAB PO ONE (02:46)
[2020-11-19] MEDS ORDERED: POLYETHYLENE (MIRALAX) 17 GM PACK PO PRN (02:46)
[2020-11-19] MEDS ORDERED: LORazepam 3 MG/6 ML VIAL IV PRN (02:46)
[2020-11-19] MEDS ORDERED: GABAPENTIN 1200MG ALCOHOL WITHDRAWAL LOAD PO STA (02:46)
[2020-11-19] MEDS ORDERED: LORazepam 2 MG/4 ML VIAL IV PRN (02:46)
[2020-11-19] MEDS ORDERED: ONDANSETRON INJ 2 MG/ML 2 ML VIAL IV PRN (02:46)
[2020-11-19] MEDS ORDERED: CARBOHYDRATES FOR HYPOGLYCEMIA PO PRN (03:15)
[2020-11-19] MEDS ORDERED: DEXTROSE 50% 50 ML SYRINGE IV PRN (03:15)
[2020-11-19] MEDS ORDERED: GLUCAGON FOR INJ 1 MG VIAL SQ PRN (03:15)
[2020-11-19] MEDS ORDERED: GLUCOSE 10 TABS/TUBE PO PRN (03:15)
[2020-11-19] MEDS ORDERED: GLUCOSE 40% GEL 15 GM TUBE PO PRN (03:15)
[2020-11-19] MEDS: SODIUM CHLORIDE 0.9% 1000ML 1,000 ML IV SCH ×3 (03:31→19:12)
[2020-11-19] MEDS: HYDROmorphone INJ 0.5 MG/0.5 ML SYR IV PRN ×6 (03:38→23:42)
--- NOTE | 2020-11-19 03:43 | History and Physical Report ---
DATE OF ADMISSION: 11/18/2020 CHIEF COMPLAINT: Abdominal pain. HISTORY OF PRESENT ILLNESS: This 45-year-old male with past medical history significant for ADHD, mood disorder, history of type 2 diabetes, history of medication noncompliance, GERD, Renae's esophagus, recurrent alcoholic pancreatitis, history of PE as per records, not on anticoagulation secondary to most likely from alcoholism, history of chronic pain, history of narcotic abuse as per records, terminated medication agreement, history of recurrent alcoholic pancreatitis, last August, left against medical advice because IV Dilaudid was not given. Recently was in the hospital in October with recurrent pancreatitis and DKA and alcoholism, comes again with abdominal pain. The patient since discharge last admission stopped drinking, but since his birthday started drinking again. He drinks 6-7 beers every day, started developing abdominal pain since yesterday. Had nausea, vomiting and couple of episodes of diarrhea that resolved now. Has some chest pain that resolved now. Denies any cough, no shortness of breath, no fever, no chills, no headache, no blurred vision, no earache, no runny nose, no sore throat. Not eating much because of abdominal pain. Pain is in the epigastric region, severe in nature. Normal bowel and bladder movements. Afebrile. ALLERGIES: No known drug allergies. PAST MEDICAL HISTORY: As mentioned above. PAST SURGICAL HISTORY: Multiple EGDs, EGD with biopsy, EGD with endoscopic ultrasound, laparoscopic cholecystectomy, A-port removal, appendectomy. MEDICATIONS: On Tylenol as needed, gabapentin 600 mg p.o. daily, glipizide 5 mg p.o. daily, Protonix 40 mg p.o. daily, paroxetine 20 mg p.o. a.m. FAMILY HISTORY: Significant for aunt has manic depression. Father has alcohol abuse, depression. SOCIAL HISTORY: Lives with his mother. Chews tobacco 1 can a day. Drinks alcohol, 6-7 beers a day. No drug use. REVIEW OF SYMPTOMS: As per HPI. Rest of review of symptoms negative. PHYSICAL EXAMINATION: GENERAL: The patient is of moderate build, not in acute distress. VITAL SIGNS: Temperature 36.6, pulse 95, respiratory rate 16, blood pressure 116/81, oxygen 98% room air. HEENT: Pupils equal, round, reactive to light. Oral mucosa moist. NECK: No JVD, no neck masses. CARDIOVASCULAR: S1, S2 heard, regular rate and rhythm, no murmur, no gallop. RESPIRATORY SYSTEM: Normal AP diameter. No accessory muscle use. No wheezing, no crackles. ABDOMEN: Soft, bowel sounds present. Mild abdominal discomfort. Mild guarding, no rigidity. No distention. CENTRAL NERVOUS SYSTEM: Cranial nerves II-XII are grossly intact. Nonfocal. EXTREMITIES: No edema, no erythema. LABORATORY DATA: WBC 5.8, hemoglobin 16.9, hematocrit 47.7, platelets 145. Venous blood gas pH of 7.37. Sodium 130, potassium 4, chloride 96, bicarbonate 23, BUN 6, creatinine 1, serum glucose 378, calcium 9.9, magnesium 2.2, total bilirubin 1.2, AST 67, ALT 94, alkaline phosphatase 116. Troponin I less than 0.015. Ethyl alcohol 118. SARS-CoV-2 PCR negative. Influenza A and B PCR negative, RSV PCR negative. ASSESSMENT AND PLAN: This is a 45-year-old male with history of alcoholism and recurrent pancreatitis, comes with abdominal pain. 1. Abdominal pain, most likely alcoholic gastritis, lipase level is normal. Place him on IV Protonix 40 b.i.d., clear liquid diet, IV fluids, antiemetics and IV pain meds p.r.n. Monitor. 2. Alcoholism. Received banana bag in the ER. We will continue gabapentin protocol. Hold his home gabapentin while on gabapentin protocol. IV thiamine and folic acid and IV Ativan p.r.n. Closely monitor for withdrawal. 3. Type 2 diabetes, hyperglycemia. Says since discharge taking his medications regularly. We will place on Lantus and insulin sliding scale. Follow the blood sugars, follow HbA1c levels. 4. History of depression. Continue paroxetine. 5. History of chronic pain, narcotic abuse as per records. Currently, getting pain medications. Maybe we will stop the pain medications tomorrow. 6. History of situational hypertension. We will monitor. 7. History of PE as per records, not on anticoagulation secondary to alcoholism. 8. History of GERD with Renae's esophagus. On home PPI. Currently on IV PPI. 9. Deep venous thrombosis prophylaxis, sequential compression devices for now. 10. Disposition: Closely monitor in the medical floor. Expect discharge home and follow with family doctor. Level 1 full code. MTDD
[2020-11-19 05:35] LABS: Basophils # (auto) 0.01 K/uL (0-0.2); Basophils % (auto) 0.2 %; Eosinophils # (auto) 0.27 K/uL (0-0.5); Eosinophils % (auto) 5.2 %; Hematocrit (blood only) 43.3 % (42-52); Hemoglobin 15.6 g/dL (14.0-18.0); Immature Granulocytes # (auto) 0.01 K/uL (0.00-0.02); Immature Granulocytes % (auto) 0.2 %; Lymphocytes # (auto) 2.32 K/uL (1.2-3.4); Lymphocytes % (auto) 44.3 %; Mean Corpuscular Hemoglobin 33.7 pg (25-34); Mean Corpuscular Volume 93.5 fL (80-100); Mean Platelet Volume 9.3 fL (7.4-10.4); Monocytes # (auto) 0.46 K/uL (0.11-0.59); Monocytes % (auto) 8.8 %; Neutrophils # (auto) 2.17 K/uL (1.4-6.5); Neutrophils % (auto) 41.3 %; Platelet Count 156 K/uL (130-400); RDW Coefficient of Variation 12.5 % (11.5-14.5); RDW Standard Deviation 42.1 fL (36.4-46.3); Red Blood Count 4.63 M/uL (4.7-6.1); White Blood Count 5.24 K/uL (4.8-10.8)
[2020-11-19 06:11] LABS: Calcium 8.8 mg/dl (8.5-10.1); Creatinine Clr Calc Pharmacy 153.7 ml/min; Est GFR (African American) 129.5; Est GFR (Non-African American) 111.7; Magnesium 2.2 mg/dl (1.8-2.4); Potassium 3.8 mmol/L (3.5-5.1)
[2020-11-19 06:14] LABS: Estimated Average Glucose 200 mg/dl; Hemoglobin A1C 8.6 % (4.5-5.6)
[2020-11-19 07:59] LABS: Appearance Urine Clear (Clear); Bilirubin Urine Negative (Negative); Blood Urine Negative (Negative); Color Urine Yellow; Glucose Urine UA 2+ (Negative); Ketones Urine 1+ (Negative); Leukocyte Esterase Urine Negative (Negative); Nitrite Urine Negative (Negative); Protein Urine Negative (Negative); Specific Gravity Urine 1.013 (1.000-1.030); Urobilinogen Urine Negative (Negative)
[2020-11-19] MEDS ORDERED: PANTOprazole 40 MG in SYRINGE 0 ML IV SCH (09:00)
[2020-11-19] MEDS ORDERED: THIAMINE HCL 100 MG in SYRINGE 9 ML IV SCH (09:00)
[2020-11-19] MEDS ORDERED: FOLIC ACID 1 MG in SYRINGE 9.8 ML IV SCH (09:00)
[2020-11-19] MEDS ORDERED: PANTOprazole 40 MG TAB PO SCH (09:00)
[2020-11-19] MEDS: GABAPENTIN 600 MG TAB PO SCH ×3 (09:03→22:01)
[2020-11-19] MEDS: PARoxetine HCL 20 MG TAB PO SCH (09:03)
[2020-11-19] MEDS: INSULIN ASPART 100 UNITS/ML 3 ML PEN SC SCH ×4 (09:07→21:49)
[2020-11-19] MEDS: INSULIN GLARGINE SOLOSTAR 100 UNITS/ML 3 ML PEN SC SCH (09:08)
--- NOTE | 2020-11-19 14:57 | Hospitalist Progress Note ---
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 Admitted with abdominal pain, normal lipase level, blood alcohol level more than 100 Started with IV fluids, patient received IV banana bag. On gabapentin alcohol withdrawal protocol Patient was ordered clear fluid diet for ongoing GI symptoms Patient reports nausea has improved, abdominal pain controlled with current pain regimen, Willing to try solid food Diet advanced Continue to monitor for alcohol withdrawal, If patient's develops tachycardia hypertensive episode: Will be transferred to medical telemetry Admission and Anticipated Discharge Date Admission Date: November 19, 2020 Subjective Follow-up visit for acute alcoholic abuse/withdrawal: Patient reports still having a lot of pain in abdomen, no nausea Had tremor earlier received as needed Ativan, feels better On Neurontin alcohol withdrawal protocol Tolerating clears Willing to advance diet to solid Review of Systems Review of Systems: All systems reviewed & are unremarkable except as noted in Subjective Physical Exam Physical Exam: Physical exam: General: No acute distress, alert awake oriented x3 HEENT: PERRLA, EOMI, Heart: Regular S1-S2, no carotid bruit, no JVD, no lower extremity edema Lungs: Clear to auscultate, no wheeze or rales Abdomen: Soft nontender, no organomegaly Extremity: No cyanosis, no deformity, normal strength 5 out of 5 with upper and lower Neuro: No focal neurological deficit normal speech, normal visual field, Motor strength : normal both upper and lower extremity, sensation intact Psych: Alert awake oriented x3, normal affect Results & Data Results & Data ([facility]) Vital Signs (Past 12 Hours) Vital Signs Temp Pulse Resp BP Pulse Ox 11/19/20 12:21 36.8 C 92 H 18 127/85 96 11/19/20 07:32 36.5 C 98 H 18 142/82 H 98
[2020-11-20] MEDS: SODIUM CHLORIDE 0.9% 1000ML 1,000 ML IV SCH ×2 (02:53→10:40)
[2020-11-20] MEDS: HYDROmorphone INJ 0.5 MG/0.5 ML SYR IV PRN ×5 (03:45→20:02)
[2020-11-20] MEDS: GABAPENTIN 600 MG TAB PO SCH ×2 (05:42→14:07)
--- NOTE | 2020-11-20 06:11 | Electrocardiogram Report ---
Test Reason : Blood Pressure : / mmHG Vent. Rate : 097 BPM Atrial Rate : 097 BPM P-R Int : 140 ms QRS Dur : 074 ms QT Int : 338 ms P-R-T Axes : 062 055 053 degrees QTc Int : 429 ms Poor data quality, interpretation may be adversely affected Normal sinus rhythm Normal ECG When compared with ECG of 17-OCT-2020 02:38, No significant change was found Confirmed by Antoni Meek ([id number]) on 11/20/2020 6:10:51 AM Referred By: REFERRED SELF Confirmed By:Antoni Meek
[2020-11-20] MEDS: PANTOprazole 40 MG TAB PO SCH (08:32)
[2020-11-20] MEDS: PARoxetine HCL 20 MG TAB PO SCH (08:32)
[2020-11-20] MEDS: INSULIN ASPART 100 UNITS/ML 3 ML PEN SC SCH ×4 (08:32→22:09)
[2020-11-20] MEDS: INSULIN GLARGINE SOLOSTAR 100 UNITS/ML 3 ML PEN SC SCH (08:32)
[2020-11-20] MEDS: FOLIC ACID 1 MG TAB PO SCH (08:32)
[2020-11-20] MEDS: THIAMINE HCL 100 MG TAB PO SCH (08:32)
--- NOTE | 2020-11-20 17:26 | Hospitalist Progress Note ---
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 Admitted with abdominal pain, normal lipase level, blood alcohol level more than 100 On gabapentin alcohol withdrawal protocol Has been doing well, denies of any active withdrawal symptoms Nausea has resolved diet advanced to solid has been tolerating well IV fluids discontinued Patient had numerous counseling in the past for alcohol abstinence, was offered inpatient alcohol rehab which he has refused Chronic abdominal pain/history of narcotic pain medication abuse Patient reports of ongoing abdominal pain, has been utilizing IV Dilaudid every 4 hours This admission patient had normal lipase level CT abdomen pelvis did not show any evidence of pancreatitis. Severe mid abdominal pain with radiation to back very unlikely secondary to any organic cause Counseling provided to limit IV Dilaudid Patient is agreeable for the plan but wants to keep the same dose for overnight at least Disposition: Discharge home when medically stable, improvement of abdominal pain, no alcohol withdrawal symptoms Admission and Anticipated Discharge Date Admission Date: November 19, 2020 Subjective Follow-up visit for acute alcoholic abuse/withdrawal: Patient says he is doing better, has minimal withdrawal symptoms Has intermittent mid abdominal pain, states Dilaudid helps No nausea vomiting tolerating diet No fever or chills no shortness of breath no cough no chest pain or dyspnea on exertion Stable vitals Review of Systems Review of Systems: All systems reviewed & are unremarkable except as noted in Subjective Physical Exam Physical Exam: Physical exam: General: No acute distress, alert awake oriented x3 HEENT: PERRLA, EOMI, Heart: Regular S1-S2, no carotid bruit, no JVD, no lower extremity edema Lungs: Clear to auscultate, no wheeze or rales Abdomen: Soft nontender, no organomegaly Extremity: No cyanosis, no deformity, normal strength 5 out of 5 with upper and lower Neuro: No focal neurological deficit normal speech, normal visual field, Motor strength : normal both upper and lower extremity, sensation intact Psych: Alert awake oriented x3, normal affect Results & Data Results & Data ([facility]) Vital Signs (Past 12 Hours) Vital Signs Temp Pulse Resp BP Pulse Ox 11/20/20 15:25 36.6 C 74 18 130/85 97 11/20/20 07:09 36.5 C 86 18 130/84 97
[2020-11-21] MEDS: HYDROmorphone INJ 0.5 MG/0.5 ML SYR IV PRN ×6 (01:03→22:10)
[2020-11-21] MEDS: GABAPENTIN 600 MG TAB PO SCH ×2 (01:08→13:04)
[2020-11-21] MEDS: INSULIN ASPART 100 UNITS/ML 3 ML PEN SC SCH ×4 (08:38→21:35)
[2020-11-21] MEDS: INSULIN GLARGINE SOLOSTAR 100 UNITS/ML 3 ML PEN SC SCH (08:40)
[2020-11-21] MEDS: PANTOprazole 40 MG TAB PO SCH (08:42)
[2020-11-21] MEDS: PARoxetine HCL 20 MG TAB PO SCH (08:42)
[2020-11-21] MEDS: FOLIC ACID 1 MG TAB PO SCH (08:42)
[2020-11-21] MEDS: THIAMINE HCL 100 MG TAB PO SCH (08:42)
--- NOTE | 2020-11-21 09:48 | Hospitalist Progress Note ---
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 Admitted with abdominal pain, normal lipase level, blood alcohol level more than 100 On gabapentin alcohol withdrawal protocol/no evidence of active withdrawal symptoms Stable vitals Has been doing well, Nausea has resolved diet advanced to solid has been tolerating well Patient had numerous counseling for alcohol dependency/abuse, was offered inpatient alcohol rehab in past which he has refused This time, he feels he is more determined to try to quit drinking Wants to try outpatient counseling after discharge from [facility] Chronic abdominal pain/history of narcotic pain medication abuse Patient reports of ongoing abdominal pain, has been utilizing IV Dilaudid every 4 hours This admission patient had normal lipase level Last CT abdomen pelvis was done on 10/17/[address] abdomen with contrast Severe mid abdominal pain with radiation to back very unlikely secondary to any organic cause Counseling provided to limit IV Dilaudid Patient is agreeable for the plan As needed IV Toradol ordered in between to limit narcotic pain use Disposition: Discharge home when medically stable/improvement of abdominal pain Admission and Anticipated Discharge Date Admission Date: November 21, 2020 Subjective Follow-up visit for acute alcoholic abuse/withdrawal: No complaint of nausea vomiting tolerating diet Does not have any alcohol withdrawal symptoms Continue to complain of abdominal pain requesting Dilaudid, I had an extensive discussion with Mr. Zeng regarding addiction and dependency on narcotic pain medications Check CT abdomen pelvis to rule out any underlying pathology Patient had normal lipase level on admission Patient is agreeable to try IV Toradol in between for pain control No fever or chills, no cough no shortness of breath Denies of feeling anxious, no tremor noted Review of Systems Review of Systems: All systems reviewed & are unremarkable except as noted in Subjective Physical Exam Physical Exam: Physical exam: General: No acute distress, alert awake oriented x3 HEENT: PERRLA, EOMI, Heart: Regular S1-S2, no carotid bruit, no JVD, no lower extremity edema Lungs: Clear to auscultate, no wheeze or rales Abdomen: Soft, mid abdominal tenderness no rebound normal bowel sound Extremity: No cyanosis, no deformity, normal strength 5 out of 5 with upper and lower Neuro: No focal neurological deficit normal speech, normal visual field, Motor strength : normal both upper and lower extremity, sensation intact Psych: Alert awake oriented x3, normal affect Results & Data Results & Data ([facility]) Vital Signs (Past 12 Hours) Vital Signs Temp Pulse Resp BP Pulse Ox 11/21/20 07:16 36.6 C 74 16 129/83 97 11/20/20 23:42 36.8 C 70 18 143/87 H 94
[2020-11-21] MEDS ORDERED: OPTIRAY 320 100ml IV ONE (10:40)
--- NOTE | 2020-11-21 11:29 | CT Scan Report ---
ABDOMEN AND PELVIS CT WITH IV CONTRAST CT DOSE: 565.88 mGy.cm HISTORY: Acute generalized abdominal pain abdominal pain TECHNIQUE: Multiaxial CT images of the abdomen and pelvis were performed following the IV administrat ion of 88 cc of Optiray, A dose lowering technique was utilized adhering to the principles of ALARA. COMPARISON STUDY: CT abdomen 10/17/2020 FINDINGS: Clear lung bases. No pneumatosis or pneumoperitoneum. The imaged inferior cardiac chambers are unrema rkable. The spleen, and adrenal glands are within normal limits. Cholecystectomy. Hepatic steatosis. Patency of the hepatic and portal veins. Moderate pancreatic atrophy. There is decreased interstitial and peripancreatic edema. No pancreatic necrosis, pseudocyst or ductal dilation. Normal-appearing kidneys. No hydronephrosis. Urinary bladder wall thickening with partial distention. Punctate calcification noted within the of the median umbilical ligament. Tiny fat filled periumbili jessie hernia. Possible lipoma of the periumbilical tissues on the right, 2.8 cm. The prostate measures the upper limits of normal in size. Pelvic basin phleboliths. No aortic aneurysm or adenopathy. Unrem arkable IVC. Upper abdominal varices redemonstrated. Mild fecal retention. No bowel obstruction or debra wel wall thickening. Appendectomy. No acute fracture. Prior laminectomy with posterior interbody gayathri and screw fusion and discectomy at L4-S1. No evidence of hardware complication. IMPRESSION: 1. No bowel obstruction or bowel wall thickening. 2. Decreased interstitial and peripancreatic edema compatible with resolving acute pancreatitis. 3. Prior cholecystectomy and appendectomy. 4. Urinary bladder wall thickening with partial distention. Correlate with urinalysis. 5. Additional findings as above. ACT 112: Negative or not required by law. The above report was generated using voice recognition software. It may contain grammatical, syntax o r spelling errors. Electronically signed by: Rick Álvarez M.D. 11/21/2020 11:28 AM
[2020-11-21] MEDS: KETOROLAC TROMETHAMINE 15 MG/ML VIAL IV PRN ×2 (15:24→21:37)
[2020-11-22] MEDS: HYDROmorphone INJ 0.5 MG/0.5 ML SYR IV PRN ×5 (02:25→22:37)
[2020-11-22] MEDS: KETOROLAC TROMETHAMINE 15 MG/ML VIAL IV PRN ×3 (04:44→21:19)
[2020-11-22] MEDS: FOLIC ACID 1 MG TAB PO SCH (09:15)
[2020-11-22] MEDS: PANTOprazole 40 MG TAB PO SCH (09:15)
[2020-11-22] MEDS: PARoxetine HCL 20 MG TAB PO SCH (09:15)
[2020-11-22] MEDS: THIAMINE HCL 100 MG TAB PO SCH (09:15)
[2020-11-22] MEDS: INSULIN GLARGINE SOLOSTAR 100 UNITS/ML 3 ML PEN SC SCH (09:16)
[2020-11-22] MEDS: INSULIN ASPART 100 UNITS/ML 3 ML PEN SC SCH ×4 (09:17→21:23)
--- NOTE | 2020-11-22 11:58 | Hospitalist Progress Note ---
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 Admitted with abdominal pain, normal lipase level, blood alcohol level more than 100 Started on gabapentin alcohol withdrawal protocol/no evidence of active withdrawal symptoms Stable vitals Patient had numerous counseling for alcohol dependency/abuse, was offered inpatient alcohol rehab in past which he has refused This time, he feels he is more determined to try to quit drinking Wants to try outpatient counseling after discharge from [facility] Chronic abdominal pain/history of narcotic pain medication abuse Patient reports of ongoing abdominal pain, has been utilizing IV Dilaudid every 4 hours This admission patient had normal lipase level CT abdomen pelvis:1. No bowel obstruction or bowel wall thickening. . Decreased interstitial and peripancreatic edema compatible with resolving acute pancreatitis. Counseling provided to limit IV Dilaudid Narcotic pain medication dose we could be decreased ordered to utilize IV Toradol between to limit narcotic pain use Patient is currently comfortable with above regimen Disposition: Discharge home in next 1-2 days when medically stable/improvement of abdominal pain Admission and Anticipated Discharge Date Admission Date: November 21, 2020 Subjective Follow-up visit for acute alcoholic abuse/withdrawal: Patient can planes of continued abdominal discomfort, utilizing Toradol in between alert Reports improvement of symptoms No nausea, normal appetite tolerating diet Has normal bowel movement Has been ambulating independently No fever or chills, no cough no shortness of breath Denies of feeling anxious, no tremor noted Review of Systems Review of Systems: All systems reviewed & are unremarkable except as noted in Subjective Physical Exam Physical Exam: Physical exam: General: No acute distress, alert awake oriented x3 HEENT: PERRLA, EOMI, Heart: Regular S1-S2, no carotid bruit, no JVD, no lower extremity edema Lungs: Clear to auscultate, no wheeze or rales Abdomen: Soft, mid abdominal tenderness no rebound normal bowel sound Extremity: No cyanosis, no deformity, normal strength 5 out of 5 with upper and lower Neuro: No focal neurological deficit normal speech, normal visual field, Motor strength : normal both upper and lower extremity, sensation intact Psych: Alert awake oriented x3, normal affect Results & Data Results & Data ([facility]) Vital Signs (Past 12 Hours) Vital Signs Temp Pulse Resp BP Pulse Ox 11/22/20 08:14 36.6 C 94 H 16 107/67 95
[2020-11-22] MEDS ORDERED: GABAPENTIN 600 MG TAB PO SCH (14:00)
[2020-11-22 23:43] VITALS: TEMP 98.2; O2SAT 99
[2020-11-23] MEDS: HYDROmorphone INJ 0.5 MG/0.5 ML SYR IV PRN ×3 (03:01→12:14)
[2020-11-23] MEDS: KETOROLAC TROMETHAMINE 15 MG/ML VIAL IV PRN (06:29)
[2020-11-23 07:33] VITALS: BP 115/75; PULSE 77
[2020-11-23] MEDS: PARoxetine HCL 20 MG TAB PO SCH (08:56)
[2020-11-23] MEDS: THIAMINE HCL 100 MG TAB PO SCH (08:56)
[2020-11-23] MEDS: FOLIC ACID 1 MG TAB PO SCH (08:57)
[2020-11-23] MEDS: PANTOprazole 40 MG TAB PO SCH (08:57)
[2020-11-23] MEDS: INSULIN GLARGINE SOLOSTAR 100 UNITS/ML 3 ML PEN SC SCH (09:00)
[2020-11-23] MEDS: INSULIN ASPART 100 UNITS/ML 3 ML PEN SC SCH ×2 (09:01→12:46)
--- NOTE | 2020-11-23 13:02 | Hospitalist Progress Note ---
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 Admitted with abdominal pain, normal lipase level, blood alcohol level more than 100 Treated with gabapentin alcohol withdrawal protocol/no evidence of active withdrawal symptoms Patient had no severe alcohol withdrawal symptoms Vitals been stable, completely asymptomatic for past 48 hours Medically stable to be discharged home Patient had numerous counseling for alcohol dependency/abuse, was offered inpatient alcohol rehab in past which he has refused This time, he feels he is more determined to try to quit drinking Wants to try outpatient counseling after discharge from hospital Chronic abdominal pain/history of narcotic pain medication abuse Reports abdominal pain much improved after addition of IV Toradol in between On admission patient had normal lipase level CT abdomen pelvis:1. No bowel obstruction or bowel wall thickening. . Decreased interstitial and peripancreatic edema compatible with resolving acute pancreatitis. Counseling provided to limit IV Dilaudid Narcotic pain medication dose we could be decreased Patient is asked to IV Toradol between to limit narcotic pain use Patient reports of abdominal pain much tolerable today. Comfortable on being discharged home No narcotics pain medications prescription given on discharge Disposition: Patient is discharged home today Admission and Anticipated Discharge Date Admission Date: November 21, 2020 Subjective Follow-up visit for acute alcoholic abuse/withdrawal: Patient reports abdominal pain has improved a lot, Wants to be discharged home today Does not have any nausea vomiting has been tolerating diet well Vitals been stable no sign or symptoms of alcohol withdrawal Review of Systems Review of Systems: All systems reviewed & are unremarkable except as noted in Subjective Physical Exam Physical Exam: Physical exam: General: No acute distress, alert awake oriented x3 HEENT: PERRLA, EOMI, Heart: Regular S1-S2, no carotid bruit, no JVD, no lower extremity edema Lungs: Clear to auscultate, no wheeze or rales Abdomen: Soft, mid abdominal tenderness no rebound normal bowel sound Extremity: No cyanosis, no deformity, normal strength 5 out of 5 with upper and lower Neuro: No focal neurological deficit normal speech, normal visual field, Motor strength : normal both upper and lower extremity, sensation intact Psych: Alert awake oriented x3, normal affect Results & Data Results & Data ([facility]) Vital Signs (Past 12 Hours) Vital Signs Temp Pulse Resp BP Pulse Ox 11/23/20 07:32 36.8 C 77 19 115/75 99
--- NOTE | 2020-11-23 13:03 | Discharge Summary ---
Date of Service November 23, 2020 Admission HPI Per Admitting Provider DICTATED BY: Jed Sousa MD DATE OF ADMISSION: 11/18/2020 CHIEF COMPLAINT: Abdominal pain. HISTORY OF PRESENT ILLNESS: This 45-year-old male with past medical history significant for ADHD, mood disorder, history of type 2 diabetes, history of medication noncompliance, GERD, Renae's esophagus, recurrent alcoholic pancreatitis, history of PE as per records, not on anticoagulation secondary to most likely from alcoholism, history of chronic pain, history of narcotic abuse as per records, terminated medication agreement, history of recurrent alcoholic pancreatitis, last August, left against medical advice because IV Dilaudid was not given. Recently was in the hospital in October with recurrent pancreatitis and DKA and alcoholism, comes again with abdominal pain. The patient since discharge last admission stopped drinking, but since his birthday started drinking again. He drinks 6-7 beers every day, started developing abdominal pain since yesterday. Had nausea, vomiting and couple of episodes of diarrhea that resolved now. Has some chest pain that resolved now. Denies any cough, no shortness of breath, no fever, no chills, no headache, no blurred vision, no earache, no runny nose, no sore throat. Not eating much because of abdominal pain. Pain is in the epigastric region, severe in nature. Normal bowel and bladder movements. Afebrile. 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 Admitted with abdominal pain, normal lipase level, blood alcohol level more than 100 Treated with gabapentin alcohol withdrawal protocol/no evidence of active withdrawal symptoms Patient had no severe alcohol withdrawal symptoms Vitals been stable, completely asymptomatic for past 48 hours Medically stable to be discharged home Patient had numerous counseling for alcohol dependency/abuse, was offered inpatient alcohol rehab in past which he has refused This time, he feels he is more determined to try to quit drinking Wants to try outpatient counseling after discharge from hospital Chronic abdominal pain/history of narcotic pain medication abuse Reports abdominal pain much improved after addition of IV Toradol in between On admission patient had normal lipase level CT abdomen pelvis:1. No bowel obstruction or bowel wall thickening. . Decreased interstitial and peripancreatic edema compatible with resolving acute pancreatitis. Counseling provided to limit IV Dilaudid Narcotic pain medication dose we could be decreased Patient is asked to IV Toradol between to limit narcotic pain use Patient reports of abdominal pain much tolerable today. Comfortable on being discharged home No narcotics pain medications prescription given on discharge Disposition: Patient is discharged home today Total Time Total Time Spent Total Time Spent (In Minutes): 35 minutes Total Time Includes: Examination of the Patient, Discharge Planning and Medication Reconciliation Discharge Plan Discharge Items Patient Disposition: Home - Self-Care Reason For Visit: ABDOMINAL PAIN Discharge Diagnosis: ABDOMINAL PAIN /NAUSEA CHRONIC ALCOHOL ABUSE ALCOHOL WITHDRAWAL SYMPTOMS Condition on Discharge: Fair Activity: Resume your previous activity Non-emergency contact: Primary Care Provider Call non-emergency contact if: you have any medication questions Follow-up/Referrals: Dhiraj Myers DO [Primary Care Provider] - (Date & Time 11/25/2020 11:00 AM Provider Dhiraj Myers DO Department [facility] ) Diet: Low Fat Addtl Attending Provider Instructions: Please take all medications as instructed on discharge list below. It is recommended that you follow-up with your primary care physician within 1-2 weeks of hospital discharge to ensure you are still doing well. Please call if you have any questions or problems. You can reach a [facility] hospitalist on duty at [facility] 24 hours a day by calling [phone] NEED COMPLETE ABSTINENCE FROM ALCOHOL TO PREVENT SERIOUS CONSEQUENCES -LIVER FAILURE / PLEASE SEEK HELP -RECOMMEND GOING TO ALCOHOL REHAB OR SEEK HELP IN OUT PATIENT ADDICTION COUNSELLING Pending Studies at Discharge: No Stand-Alone Forms: My [facility] [employer], Smoking Cessation Medications and DC Order Prescriptions: Continued pantoprazole 40 mg tablet,delayed release (DR/EC) 40 mg PO QAM RF: 0 paroxetine HCl 20 mg tablet 20 mg PO QAM RF: 0 gabapentin 600 mg Tablet 600 mg PO Q24H Qty: 1 RF: 0 acetaminophen [Tylenol 8 Hour] 650 mg tablet extended release 650 mg PO Q8H PRN (Reason: fever or pain) Qty: 14 RF: 0 glipizide 5 mg tablet extended release 24hr 5 mg PO DAILY Qty: 30 RF: 1 Discharge Orders: Discharge Order (Routine); Ordered 11/23/20 Ordered By: Claudia Bowden/Other Patient Handouts: Managing Type 2 Diabetes, Addiction: Getting Help, Addiction: Your Treatment Options, Managing Diabetes: The A1C Test Admission Data Admit Date/Time: 11/21/20 08:20 Attending Provider: Claudia Chpaa Admit Provider: Jed Sousa Primary Care Provider: Dhiraj Myers Other Providers: Jed Sousa
== END 2020-11-23 13:51 | disposition home or self-care (01) | DRG 897 ==
LOC: 3W 19:52 → ED 19:52 → 3W 11-19 02:19

== ENCOUNTER 2021-01-18 21:32 | Inpatient (IN) ==
[2021-01-18] MEDS ORDERED: ONDANSETRON INJ 2 MG/ML 2 ML VIAL IV STA (21:45)
[2021-01-18] MEDS ORDERED: HYDROmorphone INJ 1 MG/ML SYRINGE IV STA (21:45)
[2021-01-18] MEDS ORDERED: SODIUM CHLORIDE 0.9% 1000ML 1,000 ML IV SCH (21:45)
--- NOTE | 2021-01-18 21:45 | Emergency Department Note ---
History of Present Illness General Chief complaint: Abdominal Pain Stated complaint: ABDOMINAL PAIN Time Seen by Provider: 01/18/21 21:35 History of Present Illness Maximum Pain Intensity: 10 This is a 45-year-old male that presents to the emergency department ambulance with complaints of "abdominal pain". The patient notes a history of pancreatitis. This feels similar. No trauma or injury. He began with this discomfort earlier today. He notes that he has a history of chronic alcoholism and had been sober for a period of time but notes that he had 4 drinks yesterday and 10 drinks today. He was sober for about 2 weeks. No history of seizure from drinking. He notes that his last drink today was about 4 hours prior to arrival around 6 PM. He has a history of type 2 diabetes with recent medication change about 2 days ago. BSG average between 250 and 300. He denies any fevers or chills. With the epigastric abdominal pain today he notes associated nausea, vomiting and diarrhea. He notes several hospitalizations secondary to this previously. Patient denies seeing any blood in the vomit or stool. He does note that earlier today he had some chest discomfort/shortness of breath that has subsided. Home Medications Medication Instructions Recorded Confirmed Type paroxetine HCl 20 mg PO QAM 12/20/19 01/18/21 History pantoprazole 40 mg PO QAM 01/18/20 01/18/21 History acetaminophen [Tylenol 8 Hour] 650 mg PO Q8H PRN #14 tab 10/20/20 01/18/21 Rx Allergies Allergy/AdvReac Type Severity Reaction Status Date / Time No Known Allergies Allergy Verified 01/18/21 22:22 Past Med/Surg History Medical History (Updated 01/19/21 @ 08:18 by Alberto Rivera PA-C) Abdominal pain Acute hyperglycemia Alcohol abuse (Unknown) Alcohol abuse Renae's esophagus (Unknown) "per EGD 11/23/09 " On 05/31/11 09:06 Martinez Jose wrote "per EGD 11/23/09 " Chest pain Depression Depression DM type 2 (diabetes mellitus, type 2) Encounter for alcohol abuse counseling and surveillance Encounter for pre-operative examination Encounter for tobacco use cessation counseling H/O acute pancreatitis "recurrent" History of substance abuse Hyperglycemia Intentional drug overdose Lumbar degenerative disc disease Mood disorder Mood disorder Neuropathy Pancreatitis Panic disorder Pulmonary embolism Suicidal ideation Suicidal ideation Suicide attempt Surgical History H/O esophagogastroduodenoscopy "EGD 11/23/2009- mild gastritis, suspicious for gastroparesis, Z-line irregular EUS 02/04/2010- mild chronic pancreatitis, pronounced cholesterolosis of gallbladder, no biliary dilation or stones, probable gastroparesis EGD 10/31/2014- gastritis" S/P lumbar fusion L4-S1 2014 Family History Father Alcohol abuse Social History Smoking Status: Never smoker Tobacco Type: Smokeless Tobacco (Dip or Chew) Second Hand Exposure: No; Do You Dip or Chew Tobacco: Yes; Tobacco Cessation Education Requested by Patient: No Hx Alcohol Use: Yes Alcohol type: beer Hx Substance Use: No Preferred Language: Lao Communication Ability: Effective Manager Chemical Required: No Beliefs That Will Affect Care: None marital status: Current Living Situation: Parent Current Living Situation Comment: with mother Other Information That Helps Us Care for You: No Feels Safe at Home: Yes Safety Concerns: Feels Safe At This Time Assistive Devices: None Review of Systems A total of 10 systems reviewed and were otherwise negative Physical Exam Vital Signs Vital Signs - 24 hr 01/18/21 21:40 01/18/21 21:46 01/18/21 22:00 Temperature 36.9 C Temperature Source Oral Pulse Rate 99 H 91 H Pulse Rate [Apical] Pulse Rate from SpO2 Sensor 92 H Pulse Rhythm [Apical] Pulse Strength [Apical] Respiratory Rate 16 21 Respiratory Effort / Characteristics Non-Labored Spontaneous Non-Labored Spontaneous Respiratory Depth Normal Normal Respiratory Pattern Regular Blood Pressure 105/81 Blood Pressure [Right Arm] Blood Pressure Mean 89 Blood Pressure Mean [Right Arm] Blood Pressure Position [Right Arm] Pulse Oximetry 96 97 Oxygen Delivery Method Room Air Room Air Room Air Sepsis Recent Fever Within 48 Hours No Sepsis New/Unexplained Change in Mental Status No Sepsis Action Taken by Nursing No Action Required 01/18/21 22:01 01/18/21 22:30 01/18/21 22:56 Temperature Temperature Source Pulse Rate 94 H 99 H Pulse Rate [Apical] 96 H Pulse Rate from SpO2 Sensor 95 H 99 H Pulse Rhythm [Apical] Regular Pulse Strength [Apical] Normal Respiratory Rate 17 17 15 Respiratory Effort / Characteristics Non-Labored Spontaneous Respiratory Depth Normal Respiratory Pattern Regular Blood Pressure 125/82 133/90 Blood Pressure [Right Arm] 105/81 Blood Pressure Mean 96 104 Blood Pressure Mean [Right Arm] 89 Blood Pressure Position [Right Arm] Sitting Pulse Oximetry 98 95 94 Oxygen Delivery Method Room Air Room Air Room Air Sepsis Recent Fever Within 48 Hours Sepsis New/Unexplained Change in Mental Status Sepsis Action Taken by Nursing 01/18/21 23:00 01/18/21 23:30 01/18/21 23:57 Temperature Temperature Source Pulse Rate 94 H 102 H 103 H Pulse Rate [Apical] Pulse Rate from SpO2 Sensor 95 H 100 H 105 H Pulse Rhythm [Apical] Pulse Strength [Apical] Respiratory Rate 21 18 17 Respiratory Effort / Characteristics Respiratory Depth Respiratory Pattern Blood Pressure 128/84 125/69 124/85 Blood Pressure [Right Arm] Blood Pressure Mean 98 87 98 Blood Pressure Mean [Right Arm] Blood Pressure Position [Right Arm] Pulse Oximetry 94 97 97 Oxygen Delivery Method Room Air Room Air Room Air Sepsis Recent Fever Within 48 Hours Sepsis New/Unexplained Change in Mental Status Sepsis Action Taken by Nursing 01/19/21 00:00 01/19/21 00:30 01/19/21 01:00 Temperature Temperature Source Pulse Rate 97 H 96 H 101 H Pulse Rate [Apical] Pulse Rate from SpO2 Sensor 98 H 97 H 99 H Pulse Rhythm [Apical] Pulse Strength [Apical] Respiratory Rate 20 3 L 2 L Respiratory Effort / Characteristics Respiratory Depth Respiratory Pattern Blood Pressure 124/83 113/79 112/79 Blood Pressure [Right Arm] Blood Pressure Mean 96 90 90 Blood Pressure Mean [Right Arm] Blood Pressure Position [Right Arm] Pulse Oximetry 97 93 90 Oxygen Delivery Method Room Air Room Air Sepsis Recent Fever Within 48 Hours Sepsis New/Unexplained Change in Mental Status Sepsis Action Taken by Nursing 01/19/21 01:30 01/19/21 02:00 01/19/21 02:31 Temperature Temperature Source Pulse Rate 93 H 90 101 H Pulse Rate [Apical] Pulse Rate from SpO2 Sensor 93 H 91 H 100 H Pulse Rhythm [Apical] Pulse Strength [Apical] Respiratory Rate 9 L 8 L 21 Respiratory Effort / Characteristics Respiratory Depth Respiratory Pattern Blood Pressure 110/70 119/80 118/84 Blood Pressure [Right Arm] Blood Pressure Mean 83 93 95 Blood Pressure Mean [Right Arm] Blood Pressure Position [Right Arm] Pulse Oximetry 93 93 99 Oxygen Delivery Method Room Air Room Air Room Air Sepsis Recent Fever Within 48 Hours Sepsis New/Unexplained Change in Mental Status Sepsis Action Taken by Nursing VITAL SIGNS - Vital signs and nursing notes were reviewed. Stable and afebrile. GENERAL - 45-year-old male appearing his stated age who is in no acute distress. Communicates well with provider and answers questions appropriately. SKIN - Without rashes. HEAD - NC/AT. EYES - PERRL with EOMI bilaterally. Sclera anicteric. EARS - No deformities of external structures noted on gross examination bilaterally. No pain elicited with palpation of the tragus bilaterally. External auditory canals without discharge or otorrhea. Tympanic membranes pearly joshua without retraction or bulging. No fluid or purulent material visualized behind the TM. Handle of malleus, umbo, cone of light, pars tensa/flaccid all easily visualized. NOSE - Midline and without cyanosis. No epistaxis or purulent drainage noted. Septum midline without deviation or septal hematoma noted. MOUTH/OROPHARYNX - Without perioral cyanosis. Buccal mucosa pink and moist and without leukoplakia. Tongue midline with equal elevation of palate bilaterally. No tonsillar hypertrophy, erythema, or exudates noted. Fair dentition noted. NECK - Neck with FROM. No nuchal rigidity. LUNGS - Chest wall symmetric without accessory muscle use, intercostals retractions, or central cyanosis. Normal vesicular breath sounds CTA B/L. No wheezes, rales, or rhonchi appreciated. CARDIAC - RRR with S1/S2. No murmur, rubs, or gallops appreciated. ABDOMEN - Abdominal contour normal without pulsations or visible masses. BS normoactive all four quadrants. Epigastric abdominal tenderness palpation. The abdomen is soft and nonrigid. No palpable masses, hepatosplenomegaly, or ascites noted. EXTREMITIES - No clubbing or peripheral cyanosis. +5/5 strength noted in UE/LE bilaterally. NEUROLOGIC - Cranial nerves II through XII grossly intact. PSYCH - A&Ox3 and cooperates fully with examiner. Pt is very pleasant and interacts well with examiner. Course Administered Medications Hydromorphone HCl (Hydromorphone Inj 0.5 Mg/0.5 Ml Syr) 0.5 mg IV Q3H PRN PRN Reason: Pain Stop: 02/02/21 03:45 Last Admin: 01/19/21 07:31 Dose: 0.5 mg Documented by: [id number] Admin: 01/19/21 04:16 Dose: 0.5 mg Documented by: [id number] Lactated Ringer's (Lr) 1,000 mls @ 200 mls/hr IV .Q5H RAMOS Stop: 02/18/21 03:45 Last Admin: 01/19/21 04:10 Dose: 200 mls/hr Documented by: [id number] Insulin Aspart (Insulin Aspart 100 Units/Ml 3 Ml Pen) 0 units SC Q6 RAMOS Stop: 02/18/21 05:59 Last Admin: 01/19/21 06:22 Dose: Not Given Documented by: [id number] Cosigned by: [id number] Discontinued Medications Gabapentin (Gabapentin 600 Mg Tab) 1,200 mg PO NOW ONE Stop: 01/19/21 03:47 Last Admin: 01/19/21 05:17 Dose: 1,200 mg Documented by: [id number] Hydromorphone HCl (Hydromorphone Inj 1 Mg/Ml Syringe) 1 mg IV NOW STA Stop: 01/18/21 21:46 Last Admin: 01/18/21 22:13 Dose: 1 mg Documented by: [id number] Hydromorphone HCl (Hydromorphone Inj 0.5 Mg/0.5 Ml Syr) 0.5 mg IV Q30M PRN PRN Reason: Pain Stop: 02/01/21 22:35 Last Admin: 01/19/21 02:29 Dose: 0.5 mg Documented by: [id number] Admin: 01/19/21 00:49 Dose: 0.5 mg Documented by: [id number] Admin: 01/18/21 23:25 Dose: 0.5 mg Documented by: [id number] Sodium Chloride (Nss 1000ml) 1,000 mls @ 500 mls/hr IV .Q2H RAMOS Stop: 01/18/21 23:44 Last Infusion: 01/19/21 00:18 Dose: 0 mls/hr Documented by: [id number] Admin: 01/18/21 22:13 Dose: 500 mls/hr Documented by: [id number] Multivitamins 10 ml/ Thiamine HCl 100 mg/ Folic Acid 1 mg/Sodium Chloride 1,011 .2 mls @ 1,011.2 mls/hr IV .Q1H ONE Stop: 01/19/21 00:13 Last Infusion: 01/19/21 01:01 Dose: 0 mls/hr Documented by: [id number] Admin: 01/18/21 23:58 Dose: 1,011.2 mls/hr Documented by: [id number] Ioversol (Optiray 320 100ml) 94 ml IV ONCE ONE Stop: 01/18/21 23:08 Last Admin: 01/18/21 23:08 Dose: 94 ml Documented by: [id number] Ondansetron HCl (Ondansetron Inj 2 Mg/Ml 2 Ml Vial) 4 mg IV NOW STA Stop: 01/18/21 21:46 Last Admin: 01/18/21 22:13 Dose: 4 mg Documented by: [id number] Medical Decision Making Laboratory Data Result diagrams: 01/19/21 07:06 01/19/21 07:06 Lab Results 01/18/21 01/18/21 01/18/21 Range/Units 21:54 21:54 21:54 WBC 6.20 (4.8-10.8) K/uL RBC 5.09 (4.7-6.1) M/uL Hgb 17.1 (14.0-18.0) g/dL Hct 47.4 (42-52) % MCV 93.1 (80-100) fL MCH 33.6 (25-34) pg MCHC 36.1 H (32-36) g/dL RDW Std Deviation 40.0 (36.4-46.3) fL RDW Coeff of Gucci 11.8 (11.5-14.5) % Plt Count 166 (130-400) K/uL MPV 9.5 (7.4-10.4) fL Immature Gran % (Auto) 0.2 % Neut % (Auto) 61.0 % Lymph % (Auto) 24.8 % [place] % (Auto) 9.2 % Eos % (Auto) 3.7 % Baso % (Auto) 1.1 % Neut # (Auto) 3.78 (1.4-6.5) K/uL Lymph # (Auto) 1.54 (1.2-3.4) K/uL [place] # (Auto) 0.57 (0.11-0.59) K/uL Eos # (Auto) 0.23 (0-0.5) K/uL Baso # (Auto) 0.07 (0-0.2) K/uL Immature Gran # (Auto) 0.01 (0.00-0.02) K/uL PT 10.2 (9.0-12.0) Seconds INR 1.0 (0.9-1.1) APTT 25.0 (21.0-31.0) Seconds PTT Ratio 1.0 Sodium 133 L (136-145) mmol/L Potassium 3.4 L (3.5-5.1) mmol/L Chloride 98 (98-107) mmol/L Carbon Dioxide 24 (21-32) mmol/L Anion Gap 11.0 (3-11) BUN 5 L (7-18) mg/dl Creatinine 0.89 (0.6-1.4) mg/dl Est Cr Clr Drug Dosing 123.7 ml/min Est GFR ( Amer) 118.0 ml/min Est GFR (Non-Af Amer) 101.8 ml/min BUN/Creatinine Ratio 5.9 L (10-20) Glucose 249 H (70-99) mg/dl Calcium 9.7 (8.5-10.1) mg/dl Magnesium 2.0 (1.8-2.4) mg/dl Total Bilirubin 0.9 (0.2-1) mg/dl AST 132 H (15-37) U/L ALT 115 H (12-78) U/L Alkaline Phosphatase 85 (45-117) U/L Troponin I < 0.015 (0-0.045) ng/ml Total Protein 8.3 H (6.4-8.2) gm/dl Albumin 3.7 (3.4-5.0) gm/dl Globulin 4.6 H (2.5-4.0) gm/dl Albumin/Globulin Ratio 0.8 L (0.9-2) Amylase 39 (25-115) U/L Lipase 227 (73-393) U/L Urine Color Urine Appearance (Clear) Urine pH (4.5-7.5) Ur Specific [place] (1.000-1.030) Urine Protein (Negative) Urine Glucose (UA) (Negative) Urine Ketones (Negative) Urine Blood (Negative) Urine Nitrite (Negative) Urine Bilirubin (Negative) Urine Urobilinogen (Negative) Ur Leukocyte Esterase (Negative) COVID-19 Eval Order SARS-CoV-2 (PCR) (Negative) 01/18/21 01/18/21 01/18/21 Range/Units 22:31 22:31 22:31 WBC (4.8-10.8) K/uL RBC (4.7-6.1) M/uL Hgb (14.0-18.0) g/dL Hct (42-52) % MCV (80-100) fL MCH (25-34) pg MCHC (32-36) g/dL RDW Std Deviation (36.4-46.3) fL RDW Coeff of Gucci (11.5-14.5) % Plt Count (130-400) K/uL MPV (7.4-10.4) fL Immature Gran % (Auto) % Neut % (Auto) % Lymph % (Auto) % [place] % (Auto) % Eos % (Auto) % Baso % (Auto) % Neut # (Auto) (1.4-6.5) K/uL Lymph # (Auto) (1.2-3.4) K/uL [place] # (Auto) (0.11-0.59) K/uL Eos # (Auto) (0-0.5) K/uL Baso # (Auto) (0-0.2) K/uL Immature Gran # (Auto) (0.00-0.02) K/uL PT (9.0-12.0) Seconds INR (0.9-1.1) APTT (21.0-31.0) Seconds PTT Ratio Sodium (136-145) mmol/L Potassium (3.5-5.1) mmol/L Chloride (98-107) mmol/L Carbon Dioxide (21-32) mmol/L Anion Gap (3-11) BUN (7-18) mg/dl Creatinine (0.6-1.4) mg/dl Est Cr Clr Drug Dosing ml/min Est GFR ( Amer) ml/min Est GFR (Non-Af Amer) ml/min BUN/Creatinine Ratio (10-20) Glucose (70-99) mg/dl Calcium (8.5-10.1) mg/dl Magnesium (1.8-2.4) mg/dl Total Bilirubin (0.2-1) mg/dl AST (15-37) U/L ALT (12-78) U/L Alkaline Phosphatase (45-117) U/L Troponin I (0-0.045) ng/ml Total Protein (6.4-8.2) gm/dl Albumin (3.4-5.0) gm/dl Globulin (2.5-4.0) gm/dl Albumin/Globulin Ratio (0.9-2) Amylase (25-115) U/L Lipase (73-393) U/L Urine Color Yellow Urine Appearance Clear (Clear) Urine pH 5.0 (4.5-7.5) Ur Specific [place] 1.009 (1.000-1.030) Urine Protein Negative (Negative) Urine Glucose (UA) 2+ H (Negative) Urine Ketones Negative (Negative) Urine Blood Negative (Negative) Urine Nitrite Negative (Negative) Urine Bilirubin Negative (Negative) Urine Urobilinogen Negative (Negative) Ur Leukocyte Esterase Negative (Negative) COVID-19 Eval Order Covid19 at [facility] SARS-CoV-2 (PCR) NEGATIVE (Negative) Imaging Data Radiologist's Impression: Abdomen/Pelvis CT 01/18/21 22:36 CT SCAN OF THE ABDOMEN AND PELVIS WITH IV CONTRAST CLINICAL HISTORY: Epigastric abdominal pain. COMPARISON STUDY: Abdominal CT dated 11/21/2020. TECHNIQUE: Following the IV administration of 94 cc of Optiray 320, CT scan of the abdomen and pelvis is performed from the lung bases to the proximal femora. Images are reviewed in the axial, sagittal, and coronal planes. IV contrast was administered without complication. A dose lowering technique was utilized adhering to the principles of ALARA. CT DOSE: 667.01 mGy.cm FINDINGS: Lung bases: The heart is normal in size and without pericardial effusion. The lung bases are clear. Liver: The contrast-enhanced liver is normal in size and contour. The liver demonstrates diffusely diminished attenuation consistent with hepatic steatosis. There is no intrahepatic biliary ductal dilatation. The hepatic veins and portal veins are patent. Gallbladder: Surgically absent noting clips in the gallbladder fossa. Spleen: Normal in size and attenuation. Pancreas: The pancreas is atrophic for age. Scattered parenchymal calcifications are noted. There is peripancreatic stranding and infiltration suggesting acute on chronic pancreatitis. The gland enhances homogeneously. The duct is normal in caliber. No organized peripancreatic fluid collection is identified. Adrenal glands: Unremarkable. Kidneys: The contrast enhanced demonstrate mild cortical atrophy and are without hydronephrosis. The kidneys enhance symmetrically. Abdominal vasculature: The abdominal aorta is normal in course and caliber. Bowel: The gastric mucosa appears hyperemic. No bowel obstruction is identified. The appendix is not identified and reported surgically absent. Peritoneum: There is no intraperitoneal free air or abdominal ascites. There is a fat-containing umbilical hernia. There are numerous collateral vessels in the left upper quadrant. Lymphadenopathy: None. Pelvic viscera: The bladder is distended but otherwise normal in appearance. The prostate and seminal vesicles are normal as visualized. Skeletal structures: There is postoperative change from L4-S1 spinal fusion. No lytic or blastic lesions are seen. IMPRESSION: 1. Findings are consistent with acute on chronic pancreatitis. Correlation with clinical findings and serum amylase/lipase levels will be required. 2. The pancreas enhances throughout and there is no organized peripancreatic fluid collection. 3. Hepatic steatosis. 4. The gastric mucosa appears hyperemic. Correlate clinically for evidence of gastritis. 5. Additional findings as above. ACT 112: Negative or not required by law. Electronically signed by: Kareem Rivas M.D. 01/19/2021 8:[address] ABDOMEN & PELVIS With Contrast: Comparison 11/21/20. Fatty liver. Subtle peripancreatic stranding suggesting acute pancreatitis. No jasmina- pancreatic fluid collection. No dilatation of the main pancreatic duct. Patent splenic and main portal veins. Solid organs are otherwise unremarkable. Cholecystectomy. No biliary dilatation. No bowel obstruction. The appendix is not identified. Distended urinary bladder. Mildly enlarged prostate gland. No acute osseous abnormality. L4-S1 posterior spinal fusion and laminectomies, as before. Radiologist: Lavon Lee M.D. Study ready at 23:20 and initial results transmitted at 23:42 MDM Narrative Patient was seen and evaluated as above in room C5. Review was performed of nursing notes and vital signs. I did review pertinent previous visits and patient history. After obtaining a thorough history and physical examination the above work up was performed. Patient presents to us today via ambulance with epigastric abdominal pain in the setting of alcohol use. Patient notes a history of similar presentation since 2009. He notes history of pancreatitis. He is tender in the epigastric region on exam. Otherwise appears nontoxic and stable. Options of care were discussed with the patient. IV access was established. Labs were drawn. No leukocytosis or concerning anemia. He was given IV fluids, IV banana bag, IV analgesics and IV antiemetics. No leukocytosis or concerning anemia. No emergent metabolic disturbance. Lipase and amylase are not elevated. Urinalysis does not suggest infection. Covid negative. Decision was made given the patient's level of pain to obtain a CT scan of the abdomen pelvis to ensure there is no other etiology. This was positive for subtle peripancreatic stranding suggesting acute pancreatitis. No fluid collection. Patient only requires hospitalization when he gets to this point. I discussed the case with the hospitalist. Please refer to further documentation regarding his stay. Options of care were discussed with the patient. IV access established. Labs were drawn. Case was discussed with the attending physician. EKG was reviewed by myself and found to be Normal Sinus Rhythm at a rate of 85 beats per minute and per my interpretation reveals no ST elevation. QTc 423. QRS 82. GCS: 15 In the evaluation and treatment of this patient the following differential diagnoses were entertained: ND, PE, pancreatitis, bowel obstruction, among others. Impression & Plan Acute pancreatitis Discharge Plan Visit Data Chief Complaint: Abdominal Pain Stated Complaint: ABDOMINAL PAIN ED Provider: Sushant Nash ED Midlevel Provider: Alberto Rivera Discharge Problem: Acute pancreatitis Patient Disposition: Still a Patient Discharge Instructions Interventions: ED Discharge Assessment Last Done: 01/19/21 03:34
[2021-01-18 22:18] LABS: Basophils # (auto) 0.07 K/uL (0-0.2); Basophils % (auto) 1.1 %; Eosinophils # (auto) 0.23 K/uL (0-0.5); Eosinophils % (auto) 3.7 %; Hematocrit (blood only) 47.4 % (42-52); Hemoglobin 17.1 g/dL (14.0-18.0); Immature Granulocytes # (auto) 0.01 K/uL (0.00-0.02); Immature Granulocytes % (auto) 0.2 %; Lymphocytes # (auto) 1.54 K/uL (1.2-3.4); Lymphocytes % (auto) 24.8 %; Mean Corpuscular Hemoglobin 33.6 pg (25-34); Mean Corpuscular Hgb Conc 36.1 g/dL (32-36); Mean Corpuscular Volume 93.1 fL (80-100); Mean Platelet Volume 9.5 fL (7.4-10.4); Monocytes # (auto) 0.57 K/uL (0.11-0.59); Monocytes % (auto) 9.2 %; Neutrophils # (auto) 3.78 K/uL (1.4-6.5); Platelet Count 166 K/uL (130-400); RDW Coefficient of Variation 11.8 % (11.5-14.5); Red Blood Count 5.09 M/uL (4.7-6.1)
[2021-01-18 22:31] LABS: Prothrombin Time 10.2 Seconds (9.0-12.0)
[2021-01-18 22:34] LABS: Alanine Aminotransferase 115 U/L (12-78); Albumin Level 3.7 gm/dl (3.4-5.0); Amylase 39 U/L (25-115); Aspartate Aminotransferase 132 U/L (15-37); BUN Creatinine Ratio 5.9 (10-20); Blood Urea Nitrogen 5 mg/dl (7-18); Calcium 9.7 mg/dl (8.5-10.1); Carbon Dioxide 24 mmol/L (21-32); Chloride 98 mmol/L (98-107); Creatinine Clr Calc Pharmacy 123.7 ml/min; Est GFR (Non-African American) 101.8 ml/min; Glucose 249 mg/dl (70-99); Lipase 227 U/L (73-393); Potassium 3.4 mmol/L (3.5-5.1); Sodium 133 mmol/L (136-145)
[2021-01-18 22:39] LABS: Albumin Globulin Ratio 0.8 (0.9-2); Alkaline Phosphatase 85 U/L (45-117); Bilirubin,Total 0.9 mg/dl (0.2-1); Globulin 4.6 gm/dl (2.5-4.0); Total Protein 8.3 gm/dl (6.4-8.2); Troponin I < 0.015 ng/ml (0-0.045)
[2021-01-18 23:06] LABS: Appearance Urine Clear (Clear); Bilirubin Urine Negative (Negative); Blood Urine Negative (Negative); Color Urine Yellow; Glucose Urine UA 2+ (Negative); Ketones Urine Negative (Negative); Leukocyte Esterase Urine Negative (Negative); Nitrite Urine Negative (Negative); Protein Urine Negative (Negative); Specific Gravity Urine 1.009 (1.000-1.030); Urobilinogen Urine Negative (Negative)
[2021-01-18] MEDS ORDERED: OPTIRAY 320 100ml IV ONE (23:07)
[2021-01-18] MEDS ORDERED: MULTI-VITAMIN INFUSION 10 ML, THIAMINE HCL 100 MG, FOLIC ACID 1 MG in SODIUM CHLORIDE 0... IV ONE (23:14)
[2021-01-18] MEDS: HYDROmorphone INJ 0.5 MG/0.5 ML SYR IV PRN (23:25)
[2021-01-19] MEDS: HYDROmorphone INJ 0.5 MG/0.5 ML SYR IV PRN ×10 (00:49→23:52)
[2021-01-19] MEDS ORDERED: LORazepam 3 MG/6 ML VIAL IV PRN (03:46)
[2021-01-19] MEDS ORDERED: ATIVAN IV ALCOHOL WITHDRAWL IV PRN (03:46)
[2021-01-19] MEDS ORDERED: GABAPENTIN 1200MG ALCOHOL WITHDRAWAL LOAD PO STA (03:46)
[2021-01-19] MEDS ORDERED: GABAPENTIN 600 MG TAB PO ONE (03:46)
[2021-01-19] MEDS ORDERED: LORazepam 2 MG/4 ML VIAL IV PRN (03:46)
[2021-01-19] MEDS: LACTATED RINGER'S 1,000 ML IV SCH ×5 (04:10→23:54)
[2021-01-19] MEDS ORDERED: GLUCAGON FOR INJ 1 MG VIAL IM PRN (04:30)
[2021-01-19] MEDS ORDERED: DEXTROSE 50% 50 ML SYRINGE IV PRN (04:30)
[2021-01-19] MEDS ORDERED: GLUCOSE 40% GEL 15 GM TUBE PO PRN (04:30)
[2021-01-19] MEDS ORDERED: GLUCOSE 10 TABS/TUBE PO PRN (04:30)
[2021-01-19] MEDS ORDERED: CARBOHYDRATES FOR HYPOGLYCEMIA PO PRN (04:30)
[2021-01-19] MEDS: INSULIN ASPART 100 UNITS/ML 3 ML PEN SC SCH ×4 (06:22→23:58)
[2021-01-19 07:48] LABS: Basophils # (auto) 0.04 K/uL (0-0.2); Basophils % (auto) 0.8 %; Eosinophils # (auto) 0.28 K/uL (0-0.5); Eosinophils % (auto) 5.8 %; Hematocrit (blood only) 44.3 % (42-52); Hemoglobin 15.5 g/dL (14.0-18.0); Lymphocytes # (auto) 1.66 K/uL (1.2-3.4); Lymphocytes % (auto) 34.2 %; Mean Corpuscular Hemoglobin 33.8 pg (25-34); Mean Corpuscular Volume 96.5 fL (80-100); Mean Platelet Volume 9.5 fL (7.4-10.4); Monocytes # (auto) 0.43 K/uL (0.11-0.59); Monocytes % (auto) 8.8 %; Neutrophils # (auto) 2.45 K/uL (1.4-6.5); Neutrophils % (auto) 50.4 %; Platelet Count 160 K/uL (130-400); RDW Coefficient of Variation 12.1 % (11.5-14.5); RDW Standard Deviation 42.8 fL (36.4-46.3); Red Blood Count 4.59 M/uL (4.7-6.1); White Blood Count 4.86 K/uL (4.8-10.8)
--- NOTE | 2021-01-19 08:01 | CT Scan Report ---
CT SCAN OF THE ABDOMEN AND PELVIS WITH IV CONTRAST CLINICAL HISTORY: Epigastric abdominal pain. COMPARISON STUDY: Abdominal CT dated 11/21/2020. TECHNIQUE: Following the IV administration of 94 cc of Optiray 320, CT scan of the abdomen and pelvi s is performed from the lung bases to the proximal femora. Images are reviewed in the axial, sagittal , and coronal planes. IV contrast was administered without complication. A dose lowering technique wa s utilized adhering to the principles of ALARA. CT DOSE: 667.01 mGy.cm FINDINGS: Lung bases: The heart is normal in size and without pericardial effusion. The lung bases are clear. Liver: The contrast-enhanced liver is normal in size and contour. The liver demonstrates diffusely di minished attenuation consistent with hepatic steatosis. There is no intrahepatic biliary ductal dilat ation. The hepatic veins and portal veins are patent. Gallbladder: Surgically absent noting clips in the gallbladder fossa. Spleen: Normal in size and attenuation. Pancreas: The pancreas is atrophic for age. Scattered parenchymal calcifications are noted. There is peripancreatic stranding and infiltration suggesting acute on chronic pancreatitis. The gland enhance s homogeneously. The duct is normal in caliber. No organized peripancreatic fluid collection is ident ified. Adrenal glands: Unremarkable. Kidneys: The contrast enhanced demonstrate mild cortical atrophy and are without hydronephrosis. The kidneys enhance symmetrically. Abdominal vasculature: The abdominal aorta is normal in course and caliber. Bowel: The gastric mucosa appears hyperemic. No bowel obstruction is identified. The appendix is not identified and reported surgically absent. Peritoneum: There is no intraperitoneal free air or abdominal ascites. There is a fat-containing umbi lical hernia. There are numerous collateral vessels in the left upper quadrant. Lymphadenopathy: None. Pelvic viscera: The bladder is distended but otherwise normal in appearance. The prostate and seminal vesicles are normal as visualized. Skeletal structures: There is postoperative change from L4-S1 spinal fusion. No lytic or blastic lesi ons are seen. IMPRESSION: 1. Findings are consistent with acute on chronic pancreatitis. Correlation with clinical findings and serum amylase/lipase levels will be required. 2. The pancreas enhances throughout and there is no organized peripancreatic fluid collection. 3. Hepatic steatosis. 4. The gastric mucosa appears hyperemic. Correlate clinically for evidence of gastritis. 5. Additional findings as above. ACT 112: Negative or not required by law. Electronically signed by: Kareem Rivas M.D. 01/19/2021 8:00 AM
[2021-01-19 08:03] LABS: BUN Creatinine Ratio 5.1 (10-20); Calcium 8.9 mg/dl (8.5-10.1); Creatinine Clr Calc Pharmacy 128.5 ml/min; Est GFR (African American) 124.6 ml/min; Est GFR (Non-African American) 107.5 ml/min; Magnesium 1.9 mg/dl (1.8-2.4); Potassium 3.9 mmol/L (3.5-5.1)
--- NOTE | 2021-01-19 08:06 | History and Physical Report ---
DATE OF ADMISSION: 01/19/2021. CHIEF COMPLAINT: Abdominal pain. HISTORY OF PRESENT ILLNESS: This is a 45-year-old male with past medical history significant for ADHD, mood disorder, history of type 2 diabetes, seems to be noncompliant with the medications, GERD, Renae's esophagus, recurrent alcoholic pancreatitis, recurrent admission for alcoholism, history of PE as per records, not on anticoagulation, most likely secondary to alcoholism, history of chronic pain, history of narcotic abuse as per records, terminated medication agreement, history of signing out against medical advice because of Dilaudid not given, history of DKA. The patient comes here because of abdominal pain, says its started today, severe in nature, going like in a band to his back. He states he is still drinking 8 beers every day. Chews tobacco. Lives with his mother. There is nausea. He has had an episode of chest pain for two hours, that has resolved now. Had three episodes of diarrhea. Denies any blood in the stool or black stools and normal bladder movements. Denies any headache, no blurred visions, no earache, no runny nose, no sore throat, no cough, no fever, no chills. Asking for pain medication. Hemodynamics are stable. ALLERGIES: No known drug allergies. PAST MEDICAL HISTORY: As mentioned above. PAST SURGICAL HISTORY: Multiple EGDs, EGD with endoscopic ultrasound, laparoscopic cholecystectomy, A port removal of the left chest wall, appendectomy. MEDICATIONS: Tylenol p.r.n. Protonix 40 mg daily, paroxetine 20 mg p.o. a.m. FAMILY HISTORY: Significant for aunt has manic depression; father has depression and alcohol abuse. SOCIAL HISTORY: , lives with his mother. Chews tobacco one can a day. Drinks alcohol, was in alcohol rehab in the past. No drug use. REVIEW OF SYSTEMS: As per HPI. Rest of the review of systems are negative. PHYSICAL EXAMINATION: GENERAL: The patient is of moderate build, not in acute distress. VITAL SIGNS: Temperature 36.9, pulse 97, respiratory rate 20, blood pressure 124/83, oxygen 97% on room air. HEENT: Pupils equal, round and reactive to light. Oral mucosa moist. NECK: No JVD neck masses. CARDIOVASCULAR: S1 and S2 heard. Regular rate and rhythm. No murmur, no gallop. RESPIRATORY SYSTEM: Normal AP diameter. No accessory muscle use. No wheezing, no crackles. ABDOMEN: Soft, bowel sounds present. Diffuse tenderness, guarding present. No distention. CENTRAL NERVOUS SYSTEM: Cranial nerves II-XII grossly intact, nonfocal. EXTREMITIES: No edema, no erythema. LABORATORY DATA: WBC 6.3, hemoglobin 17.1, hematocrit 47.4, platelets 166. PT 10.2, INR 1, APTT 25. Sodium 133, potassium 3.4, chloride 98, bicarbonate 24, BUN 5, creatinine 0.8, serum glucose 249, calcium 9.7, magnesium 2, total bilirubin 0.9, AST 132, ALT 115, alkaline phosphatase 85. Troponin I less than 0.015. Lipase 277. Urinalysis +2 glucose. SARS-CoV-2 PCR negative. IMAGING DATA: CT of the abdomen and pelvis preliminary report acute pancreatitis. Chest x-ray, no acute findings. EKG: Normal sinus rhythm, rate of 85. No significant change was found. ASSESSMENT AND PLAN: This is a 45-year-old male with a history of recurrent pancreatitis and chronic alcoholism, who presents with abdominal pain and found to have pancreatitis. 1. Alcoholic pancreatitis: We will keep him n.p.o., IV Ringer at 200 mL per hour. IV Dilaudid p.r.n. IV antiemetics. Consult GI in a.m. 2. Alcoholism: Started on gabapentin protocol. Received banana bag in the ER. Will place on IV thiamine, IV folic acid and IV Ativan p.r.n. Will monitor. 3. History of diabetes: Seems to be noncompliant. We will place on insulin sliding scale. Follow the blood sugars, follow the HbA1c levels. 4. Elevated LFTs, elevated transaminases: Most likely from alcoholism. Follow the repeat labs. 5. Question of hematemesis: The patient says he vomited a small amount of blood. Hemoglobin is stable. We will place him on IV Protonix b.i.d. Follow the labs. Await GI input. 6. Depression: Continue paroxetine. 7. Deep venous thrombosis prophylaxis: Sequential compression devices. DISPOSITION: Admit to medical floor. Expect to discharge home and follow with his family doctor. Job ID: [id number] [facility], [place]
[2021-01-19 08:12] LABS: Estimated Average Glucose 197 mg/dl; Hemoglobin A1C 8.5 % (4.5-5.6)
[2021-01-19] MEDS: PANTOprazole 40 MG in SYRINGE 0 ML IV SCH ×2 (08:36→21:47)
[2021-01-19] MEDS: THIAMINE HCL 100 MG in SYRINGE 9 ML IV SCH (08:36)
[2021-01-19] MEDS: PARoxetine HCL 20 MG TAB PO SCH (08:36)
[2021-01-19] MEDS: FOLIC ACID 1 MG in SYRINGE 9.8 ML IV SCH (08:36)
[2021-01-19] MEDS: ENOXAPARIN INJ 40 MG/0.4 ML SYR SQ SCH (08:37)
[2021-01-19] MEDS: ONDANSETRON INJ 2 MG/ML 2 ML VIAL IV PRN ×2 (08:37→16:38)
--- NOTE | 2021-01-19 08:43 | XRay Report ---
XR chest 1V portable HISTORY: Epigastric abdominal pain. COMPARISON: Chest 10/17/2020. FINDINGS: The lungs are clear. Cardiac silhouette is normal in size. No pleural effusions. No pneumot horax. IMPRESSION: No acute process. ACT 112: Negative or not required by law. Electronically signed by: Ronak Vega M.D. 01/19/2021 8:42 AM
--- NOTE | 2021-01-19 08:46 | Gastrointestinal Consultation ---
Date of Consultation January 19, 2021 Assessment & Plan (1) Acute alcoholic pancreatitis: Mr. Zeng is experiencing acute on alcoholic chronic pancreatitis. IV fluids, LR at 200-250 /hr with goal of decreasing his hemoglobin by 2 points, this would ensure adequate hydration. After hemoglobin has decreased by 2 points, should decrease the IV fluid rate to avoid fluid overload. Bowel rest. Would start clear liquids p.o. later today. We will add Carafate 1 g 1 dose now then 4 times daily as this is helped him with his symptoms in the past. Continue Dilaudid every 3 hours. Discussion regarding trying to avoid becoming addicted to narcotics. Discussion regarding need for alcohol abstention, encouraged counseling, rehab offered support. Eventual outpatient GI follow-up with one of our advanced endoscopist there is some possibility that his chronic pancreatitis may be improved by EUS with stenting. GI will watch peripherally, please notify us if any worsening of clinical situation peer Present on Admission?: Yes (2) Recurrent pancreatitis: (3) Chronic pancreatitis: (4) Alcohol abuse: Supervising Physician Co-Signing Physician Notes I have personally seen and examined the patient with SHAWN Monroy. Her note reflects my exam and findings. I agree with her impression and plan. Aggressive IV hydration considering third spacing. NPO. Follow clinically. Watch for withdrawal. Colton Moreland M.D. History of Present Illness Reason for Consultation: Pancreatitis Requesting Physician: Dr. Sousa Attending Physician: Samantha Davis MD History of Present Illness Mr. Raffi Zeng is a 45 yr old male pt of Dr. Dhiraj Myers with a hx of PE (2015), bipolar depression, GERD, increased alcohol intake and chronic ferrell creatitis. Yesterday around 4 PM he began with upper abdomen pain, lower chest pain which he recognized as symptoms of an episode of pancreatitis. He reports that in between episodes of pancreatitis he is relatively well without any symptoms. He admits to drinking 10-15 beers per day, most recently yesterday, and he is aware that this causes the pancreatitis. He tells me that he has been to rehab 4 times previously. His longest period of sobriety was approximately 4 years. He denies any experience with IV drugs. He tells me that he is not on narcotics outside of the hospital. On arrival, CT suggestive of acute on chronic pancreatitis without complications. Lipase was normal LFTs normal, there has not been leukocytosis, hypo/hypertension or tachycardia. He is awake alert oriented and a detailed historian. No evidence of alcohol withdrawal as far as no tremors or tachycardia though patient tells me he is feeling anxious and recognizes this as a symptom of withdrawal. He currently reports indigestion and asks for Carafate. Currently receiving Dilaudid every 3 hours which he tells me works for him for approximately 1 hour and 15 minutes then he tolerates the pain until the end of the dosing interval. Allergies Allergy/AdvReac Type Severity Reaction Status Date / Time No Known Allergies Allergy Verified 01/18/21 22:22 Home Medications Medication Instructions Recorded Confirmed Type paroxetine HCl 20 mg PO QAM 12/20/19 01/18/21 History pantoprazole 40 mg PO QAM 01/18/20 01/18/21 History acetaminophen [Tylenol 8 Hour] 650 mg PO Q8H PRN #14 tab 10/20/20 01/18/21 Rx Patient History Medical History (Updated 01/19/21 @ 10:12 by SHAWN Zapata) Abdominal pain Acute hyperglycemia Alcohol abuse (Unknown) Alcohol abuse Renae's esophagus (Unknown) "per EGD 11/23/09 " On 05/31/11 09:06 Martinez Jose wrote "per EGD 11/23/09 " Chest pain Depression Depression DM type 2 (diabetes mellitus, type 2) Encounter for alcohol abuse counseling and surveillance Encounter for pre-operative examination Encounter for tobacco use cessation counseling H/O acute pancreatitis "recurrent" History of substance abuse Hyperglycemia Intentional drug overdose Lumbar degenerative disc disease Mood disorder Mood disorder Neuropathy Pancreatitis Panic disorder Pulmonary embolism Suicidal ideation Suicidal ideation Suicide attempt Surgical History H/O esophagogastroduodenoscopy "EGD 11/23/2009- mild gastritis, suspicious for gastroparesis, Z-line irregular EUS 02/04/2010- mild chronic pancreatitis, pronounced cholesterolosis of gallbladder, no biliary dilation or stones, probable gastroparesis EGD 10/31/2014- gastritis" S/P lumbar fusion L4-S1 2014 Family History Father Alcohol abuse Social History Smoking Status: Never smoker Tobacco Type: Smokeless Tobacco (Dip or Chew) Second Hand Exposure: No; Do You Dip or Chew Tobacco: Yes; Tobacco Cessation Education Requested by Patient: No Hx Alcohol Use: Yes Alcohol type: beer Hx Substance Use: No Preferred Language: Trinidadian Communication Ability: Effective Commercial Engineer Required: No Beliefs That Will Affect Care: None marital status: Current Living Situation: Parent Current Living Situation Comment: with mother Other Information That Helps Us Care for You: No Feels Safe at Home: Yes Safety Concerns: Feels Safe At This Time Assistive Devices: None Review of Systems Review of Systems: ROS: Gen: + anxious; Denies weakness, fevers, weight loss Eyes: No eye redness, or pain, no recent vision changes Resp: No SOB, no cough Cardio: No palpitations/irregular beats, no chest pain GI: As per HPI, otherwise negative : Denies pain on urination Skin: No jaundice, itching or new rashes Physical Exam Constitutional: WD/WN, vitals as above Poor dentition Eyes: PERRL, conjunctivae normal, anicteric sclerae ENMT: external ear and nose normal, oropharynx normal Neck: trachea midline, no thyromegaly Respiratory: normal respiratory effort, lungs clear to auscultation Cardiovascular: RRR, no murmur, no edema Extremities: no edema Gastrointestinal (Abdomen): Inspection/Auscultation: abdomen normal to inspection and + hypoactive bowel sounds; abdomen not distended Percussio n/Palpation: + abdomen tender (Diffusely) and abdomen soft; no guarding, abdomen not rigid, no hepatosplenomegaly, no hepatomegaly and no hernia Musculoskeletal: no cyanosis or clubbing, extremities motor strength 5/5 Skin: no rashes, warm and dry no jaundice Neurologic: PERRL, EOMI, accommodation nl, no face palsy, no dysarthria Psychiatric: A+Ox3, euthymic affect Lymphatic: no cervical or axillary lymphadenopathy Results & Data ([facility]) Vital Signs (Past 12 Hours) Vital Signs Temp Pulse Pulse Pulse Resp BP BP 01/19/21 08:01 36.6 C 69 18 129/77 01/19/21 03:56 36.4 C L 83 16 132/85 01/19/21 03:30 82 0 L 104/74 01/19/21 03:00 80 9 L 118/81 01/19/21 02:31 101 H 21 118/84 01/19/21 02:00 90 8 L 119/80 01/19/21 01:30 93 H 9 L 110/70 01/19/21 01:00 101 H 2 L 112/79 01/19/21 00:30 96 H 3 L 113/79 01/19/21 00:00 97 H 20 124/83 01/18/21 23:57 103 H 17 124/85 01/18/21 23:30 102 H 18 125/69 01/18/21 23:00 94 H 21 128/84 01/18/21 22:56 99 H 15 133/90 01/18/21 22:30 94 H 17 125/82 01/18/21 22:01 96 H 17 105/81 01/18/21 22:00 91 H 21 105/81 01/18/21 21:40 36.9 C 99 H 16 Pulse Ox 01/19/21 08:01 97 01/19/21 03:56 94 01/19/21 03:30 93 01/19/21 03:00 95 01/19/21 02:31 99 01/19/21 02:00 93 01/19/21 01:30 93 01/19/21 01:00 90 01/19/21 00:30 93 01/19/21 00:00 97 01/18/21 23:57 97 01/18/21 23:30 97 01/18/21 23:00 94 01/18/21 22:56 94 01/18/21 22:30 95 01/18/21 22:01 98 01/18/21 22:00 97 01/18/21 21:40 96 Laboratory Results WBC 4.8, Hb 15, HCT 44, platelets 160, INR 1.0, sodium 141, K3.9, BUN 4, CR 0.75, glucose 146. LFTs normal. Lipase 120 Diagnostic Findings CTAP IV contrast 01/18: 1. Findings are consistent with acute on chronic pancreatitis. Correlation with clinical findings and serum amylase/lipase levels will be required. 2. The pancreas enhances throughout and there is no organized peripancreatic fluid collection. 3. Hepatic steatosis. 4. The gastric mucosa appears hyperemic. Correlate clinically for evidence of gastritis. (1) Acute alcoholic pancreatitis Acute pancreatitis complication: unspecified Qualified Code(s): K85.20 - Alcohol induced acute pancreatitis without necrosis or infection
[2021-01-19] MEDS: LORazepam 1 MG/2 ML VIAL IV PRN ×2 (09:22→18:45)
[2021-01-19] MEDS ORDERED: ALUMINUM/MAGNESIUM SUSP 1 ML, diphenhydrAMINE Syrup 2.5 MG, LIDOCAINE VISCOUS 2% SOLN 1 ML PO ONE (10:30)
[2021-01-19] MEDS: SUCRALFATE 1 GM/10 ML UDC PO SCH ×4 (10:35→21:47)
--- NOTE | 2021-01-19 12:04 | Electrocardiogram Report ---
Test Reason : Blood Pressure : / mmHG Vent. Rate : 085 BPM Atrial Rate : 085 BPM P-R Int : 154 ms QRS Dur : 082 ms QT Int : 356 ms P-R-T Axes : 052 034 035 degrees QTc Int : 423 ms Normal sinus rhythm Normal ECG When compared with ECG of 18-NOV-2020 20:23, No significant change was found Confirmed by Danilo Grimes ([id number]) on 01/19/2021 12:03:34 PM Referred By: REFERRED SELF Confirmed By:Jere Grimes
[2021-01-19] MEDS: GABAPENTIN 600 MG TAB PO SCH ×2 (12:41→18:00)
--- NOTE | 2021-01-19 15:48 | Hospitalist Progress Note ---
Date of Service January 19, 2021 Assessment & Plan (1) Recurrent pancreatitis: Has history of chronic pancreatitis secondary to alcohol abuse Admitted with acute abdominal pain and has had nausea with vomiting as an outpatient CT scan of the abdomen pelvis did show acute pancreatitis though the lipase was not elevated Has been getting intravenous fluid, pain medications and clears started as symptomatically getting better Intravenous Protonix twice daily, Carafate was added by GI Appreciate GI input and recommendation (2) Alcohol abuse: Ongoing alcohol abuse No withdrawal symptoms yet Has been on gabapentin withdrawal protocol We will watch for withdrawal symptoms (3) Elevated LFTs: Has chronic elevation of the LFTs AST seems to be higher compared with most recent LFT result Secondary to alcohol abuse and has steatosis on CAT scan Strongly advised to quit smoking (4) DM type 2 (diabetes mellitus, type 2): Has been on SSI (5) Depression: No acute confusion Admission and Anticipated Discharge Date Admission Date: January 19, 2021 Subjective 01/19/2021 The patient was seen and examined in medical floor He is a 45-year-old male with history of alcohol abuse and chronic pancreatitis was admitted with acute recurrent pancreatitis Has been complaining of more pain without nausea and or vomiting since admission Denies any palpitation, shortness of breath, fever and/or chills Review of Systems Review of Systems: All systems reviewed and are unremarkable except as noted below Gastrointestinal: + abdominal pain and + bloating; no nausea and no vomiting Physical Exam Physical Exam: Lying in bed comfortably Constitutional: well developed, well nourished, + ill appearing and + obese Eyes: PERRL, conjunctivae normal, anicteric sclerae ENMT: external ear and nose normal, oropharynx normal Neck: trachea midline, no thyromegaly Respiratory: no respiratory distress Auscultation: lungs clear to auscultation bilaterally Cardiovascular: Rate/Rhythm: regular rate and regular rhythm Heart Sounds: no murmur Extremities: no edema Gastrointestinal (Abdomen): Inspection/Auscultation: normal bowel sounds (Minimally decreased); abdomen not distended Percussion/Palpation: + abdomen tender (All over mostly in the epigastrium) and abdomen soft Musculoskeletal: No acute arthritis in any joint Neurologic: Alert, awake and oriented x3. No tremors involving the outstretched hands Psychiatric: A+Ox3, euthymic affect Lymphatic: no cervical or axillary lymphadenopathy Results & Data Results & Data ([facility]) Vital Signs (Past 12 Hours) Vital Signs Temp Pulse Resp BP Pulse Ox 01/19/21 12:03 36.3 C L 92 H 18 117/78 96 01/19/21 08:01 36.6 C 69 18 129/77 97 01/19/21 03:56 36.4 C L 83 16 132/85 94 Laboratory Results Short CBC 01/18/21 01/19/21 Range/Units 21:54 07:06 WBC 6.20 4.86 (4.8-10.8) K/uL Hgb 17.1 15.5 (14.0-18.0) g/dL Hct 47.4 44.3 (42-52) % Plt Count 166 160 (130-400) K/uL BMP 01/18/21 01/19/21 21:54 07:06 Sodium 133 L 141 D Potassium 3.4 L 3.9 Chloride 98 108 H Carbon Dioxide 24 26 BUN 5 L 4 L Creatinine 0.89 0.78 Glucose 249 H 146 H Calcium 9.7 8.9 Cardiac Enzymes 01/18/21 Range/Units 21:54 Troponin I < 0.015 (0-0.045) ng/ml Liver Function 01/18/21 Range/Units 21:54 Total Bilirubin 0.9 (0.2-1) mg/dl AST 132 H (15-37) U/L ALT 115 H (12-78) U/L Alkaline Phosphatase 85 (45-117) U/L Albumin 3.7 (3.4-5.0) gm/dl Urine 01/18/21 Range/Units 22:31 Urine Color Yellow Urine Appearance Clear (Clear) Urine pH 5.0 (4.5-7.5) Ur Specific [place] 1.009 (1.000-1.030) Urine Protein Negative (Negative) Urine Glucose (UA) 2+ H (Negative) Diagnostic Findings CT of the abdomen and pelvis: 1. Findings are consistent with acute on chronic pancreatitis. Correlation with clinical findings and serum amylase/lipase levels will be required. 2. The pancreas enhances throughout and there is no organized peripancreatic fluid collection. 3. Hepatic steatosis. 4. The gastric mucosa appears hyperemic. Correlate clinically for evidence of gastritis. 5. Additional findings as above. Medications Administered Current Inpatient Medications Dextrose (Dextrose 50% 50 Ml Syringe) 25 - 50 ml IV UD PRN; Protocol PRN Reason: Hypoglycemia Protocol Stop: 02/18/21 04:29 Enoxaparin Sodium (Enoxaparin Inj 40 Mg/0.4 Ml Syr) 40 mg SQ Q24H RAMOS Stop: 02/18/21 07:59 Last Admin: 01/19/21 08:37 Dose: Not Given Documented by: Gabapentin (Gabapentin 600 Mg Tab) 600 mg PO Q6H RAOMS Stop: 01/19/21 18:01 Last Admin: 01/19/21 12:41 Dose: 600 mg Documented by: Gabapentin (Gabapentin 600 Mg Tab) 600 mg PO Q8H RAMOS Stop: 01/20/21 18:01 Gabapentin (Gabapentin 600 Mg Tab) 600 mg PO Q12H RAMOS Stop: 01/21/21 18:01 Gabapentin (Gabapentin 600 Mg Tab) 600 mg PO Q24H RAMOS Stop: 01/22/21 18:01 Glucagon (Glucagon For Inj 1 Mg Vial) 1 mg IM UD PRN; Protocol PRN Reason: Hypoglycemia Protocol Stop: 02/18/21 04:29 Glucose (Glucose 40% Gel 15 Gm Tube) 15 - 30 gm PO UD PRN; Protocol PRN Reason: Hypoglycemia Protocol Stop: 02/18/21 04:29 Glucose (Glucose 10 Tabs/Tube) 4 - 8 tabs PO UD PRN; Protocol PRN Reason: Hypoglycemia Protocol Stop: 02/18/21 04:29 Hydromorphone HCl (Hydromorphone Inj 0.5 Mg/0.5 Ml Syr) 0.5 mg IV Q3H PRN PRN Reason: Pain Stop: 02/02/21 03:45 Last Admin: 01/19/21 13:32 Dose: 0.5 mg Documented by: Lorazepam (Ativan) 1 mg in 2 mls @ 2 mls/min IV UD PRN; Protocol PRN Reason: EtOH Withdrawl AWSS Score 6,7 Stop: 02/18/21 03:45 Last Admin: 01/19/21 09:22 Dose: 2 mls/min Documented by: Lorazepam (Ativan) 2 mg in 4 mls @ 4 mls/min IV UD PRN; Protocol PRN Reason: EtOH Withdrawl AWSS Score 8,9 Stop: 02/18/21 03:45 Lorazepam (Ativan) 3 mg in 6 mls @ 4 mls/min IV ONCE PRN; Protocol PRN Reason: EtOH Withdrawl AWSS Score >=10 Stop: 02/18/21 03:45 Lactated Ringer's (Lr) 1,000 mls @ 200 mls/hr IV .Q5H [facility] Stop: 02/18/21 03:45 Last Admin: 01/19/21 14:14 Dose: 200 mls/hr Documented by: Pantoprazole Sodium 40 mg/ (Syringe) 10 mls @ 5 mls/min IV BID [facility] Stop: 02/18/21 08:59 Last Admin: 01/19/21 08:36 Dose: 5 mls/min Documented by: Thiamine HCl 100 mg/ Syringe 10 mls @ 2 mls/min IV QAM [facility] Stop: 02/18/21 08:59 Last Admin: 01/19/21 08:36 Dose: 2 mls/min Documented by: Folic Acid 1 mg/ Syringe 10 mls @ 5 mls/min IV QAM [facility] Stop: 02/18/21 08:59 Last Admin: 01/19/21 08:36 Dose: 5 mls/min Documented by: Insulin Aspart (Insulin Aspart 100 Units/Ml 3 Ml Pen) 0 units SC Q6 [facility] Stop: 02/18/21 05:59 Last Admin: 01/19/21 12:42 Dose: Not Given Documented by: Miscellaneous (Carbohydrates For Hypoglycemia ) 15 - 30 gm PO UD PRN PRN Reason: Hypoglycemia Treatment Stop: 02/18/21 04:29 Ondansetron HCl (Ondansetron Inj 2 Mg/Ml 2 Ml Vial) 4 mg IV Q6H PRN PRN Reason: Nausea And Vomiting Stop: 02/18/21 06:36 Last Admin: 01/19/21 08:37 Dose: 4 mg Documented by: Paroxetine HCl (Paroxetine Hcl 20 Mg Tab) 20 mg PO QAM [facility] Stop: 02/18/21 08:59 Last Admin: 01/19/21 08:36 Dose: 20 mg Documented by: Sucralfate (Sucralfate 1 Gm/10 Ml Udc) 1 gm PO QID [facility] Stop: 02/18/21 12:59 Last Admin: 01/19/21 12:43 Dose: Not Given Documented by: (1) DM type 2 (diabetes mellitus, type 2) Diabetes mellitus complication status: with other specified complication Diabetes mellitus termite treater helper insulin use: with detention use Qualified Code(s): E11.69 - Type 2 diabetes mellitus with other specified complication; Z79.4 - intermediate card tender (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
[2021-01-19] MEDS ORDERED: HEPARIN SOD 5,000 UNIT/0.5 ML VIAL SQ SCH (21:00)
[2021-01-20] MEDS: GABAPENTIN 600 MG TAB PO SCH ×3 (01:35→18:08)
[2021-01-20] MEDS: HYDROmorphone INJ 0.5 MG/0.5 ML SYR IV PRN ×11 (01:55→23:37)
[2021-01-20] MEDS: LACTATED RINGER'S 1,000 ML IV SCH ×5 (04:00→23:38)
[2021-01-20] MEDS: INSULIN ASPART 100 UNITS/ML 3 ML PEN SC SCH ×3 (06:11→18:07)
[2021-01-20 06:56] LABS: Basophils # (auto) 0.02 K/uL (0-0.2); Basophils % (auto) 0.4 %; Eosinophils # (auto) 0.29 K/uL (0-0.5); Hematocrit (blood only) 43.5 % (42-52); Hemoglobin 15.1 g/dL (14.0-18.0); Immature Granulocytes # (auto) 0.01 K/uL (0.00-0.02); Immature Granulocytes % (auto) 0.2 %; Lymphocytes # (auto) 0.94 K/uL (1.2-3.4); Lymphocytes % (auto) 19.5 %; Mean Corpuscular Hemoglobin 33.6 pg (25-34); Mean Corpuscular Hgb Conc 34.7 g/dL (32-36); Mean Corpuscular Volume 96.7 fL (80-100); Mean Platelet Volume 9.6 fL (7.4-10.4); Monocytes # (auto) 0.51 K/uL (0.11-0.59); Monocytes % (auto) 10.6 %; Neutrophils # (auto) 3.06 K/uL (1.4-6.5); Neutrophils % (auto) 63.3 %; Platelet Count 125 K/uL (130-400); RDW Standard Deviation 42.5 fL (36.4-46.3); White Blood Count 4.83 K/uL (4.8-10.8)
[2021-01-20 07:13] LABS: Albumin Level 2.7 gm/dl (3.4-5.0); BUN Creatinine Ratio 5.2 (10-20); Calcium 9.3 mg/dl (8.5-10.1); Creatinine Clr Calc Pharmacy 151.9 ml/min; Est GFR (African American) 133.4 ml/min; Est GFR (Non-African American) 115.1 ml/min; Magnesium 1.8 mg/dl (1.8-2.4); Potassium 3.6 mmol/L (3.5-5.1)
[2021-01-20 07:34] LABS: Platelet Estimate Decreased (Normal)
[2021-01-20 07:45] LABS: Albumin Globulin Ratio 0.8 (0.9-2); Bilirubin,Total 1.7 mg/dl (0.2-1); Globulin 3.6 gm/dl (2.5-4.0); Phosphorus 2.7 mg/dl (2.5-4.9); Total Protein 6.3 gm/dl (6.4-8.2)
[2021-01-20] MEDS: ENOXAPARIN INJ 40 MG/0.4 ML SYR SQ SCH (08:21)
[2021-01-20] MEDS: SUCRALFATE 1 GM/10 ML UDC PO SCH ×4 (08:56→21:34)
[2021-01-20] MEDS: PARoxetine HCL 20 MG TAB PO SCH (08:56)
[2021-01-20] MEDS: FOLIC ACID 1 MG in SYRINGE 9.8 ML IV SCH (08:57)
[2021-01-20] MEDS: THIAMINE HCL 100 MG in SYRINGE 9 ML IV SCH (08:58)
[2021-01-20] MEDS: ONDANSETRON INJ 2 MG/ML 2 ML VIAL IV PRN (09:14)
[2021-01-20] MEDS: PANTOprazole 40 MG in SYRINGE 0 ML IV SCH ×2 (09:15→21:34)
--- NOTE | 2021-01-20 15:15 | Hospitalist Progress Note ---
Date of Service January 20, 2021 Assessment & Plan (1) Recurrent pancreatitis: Has history of chronic pancreatitis secondary to alcohol abuse Admitted with acute abdominal pain and has had nausea with vomiting as an outpatient CT scan of the abdomen pelvis did show acute pancreatitis though the lipase was not elevated Appreciate gastroenterology input. Continue maintenance IV fluids continue pain control. Continue with pantoprazole 40 mg twice daily and Carafate 4 times daily. Patient continues to have significant abdominal pain and feeling nauseous. Given no improvement, remains NPO. (2) Alcohol abuse: Ongoing alcohol abuse No withdrawal symptoms yet Has been on gabapentin withdrawal protocol. (3) Elevated LFTs: Has chronic elevation of the LFTs AST seems to be higher compared with most recent LFT result Secondary to alcohol abuse and has steatosis on CAT scan (4) DM type 2 (diabetes mellitus, type 2): Has been on SSI (5) Depression: No acute confusion Admission and Anticipated Discharge Date Admission Date: January 19, 2021 Subjective Patient complains he was feeling nauseous earlier. Continues to have significant abdominal pain. Reports the pain as 7 out of 10, sharp in nature and radiates to the back. Denies any chest pain or shortness of breath. Rest of the review of system is negative. Review of Systems Review of Systems: All systems reviewed & are unremarkable except as noted in HPI & below Physical Exam Physical Exam: General: A&Ox3 HENT: NCAT, MMM, EOMI Eyes: PERRLA Neck: Supple, normal range of motion CVS: normal rate and rhythm Resp: b/l good breath sounds Abdomen: Soft, moderate diffuse tenderness appreciated Extremities: No c/c/e Neuro: face symmetric, , no focal deficit Skin: warm and dry, no rashes/lesions/errythema MSK: normal ROM, no joint swelling/erythema Results & Data Results & Data ([facility]) Vital Signs (Past 12 Hours) Vital Signs Temp Pulse Resp BP Pulse Ox 01/20/21 14:16 36.9 C 97 H 18 120/78 96 01/20/21 07:37 36.8 C 94 H 16 118/76 97 01/20/21 05:35 36.7 C 82 14 122/73 94 (1) DM type 2 (diabetes mellitus, type 2) Diabetes mellitus complication status: with other specified complication Diabetes mellitus mcfp insulin use: with pharmacy benefits coordinator use Qualified Code(s): E11.69 - Type 2 diabetes mellitus with other specified complication; Z79.4 - watch inspector final movement (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
[2021-01-21] MEDS: HYDROmorphone INJ 0.5 MG/0.5 ML SYR IV PRN ×10 (01:37→23:02)
[2021-01-21] MEDS: ONDANSETRON INJ 2 MG/ML 2 ML VIAL IV PRN (02:00)
[2021-01-21] MEDS: LACTATED RINGER'S 1,000 ML IV SCH ×4 (03:39→19:18)
[2021-01-21] MEDS: GABAPENTIN 600 MG TAB PO SCH ×2 (05:43→16:40)
[2021-01-21] MEDS: INSULIN ASPART 100 UNITS/ML 3 ML PEN SC SCH ×5 (05:45→20:55)
[2021-01-21] MEDS: SUCRALFATE 1 GM/10 ML UDC PO SCH ×4 (07:33→20:50)
[2021-01-21] MEDS: ENOXAPARIN INJ 40 MG/0.4 ML SYR SQ SCH (09:01)
[2021-01-21] MEDS: FOLIC ACID 1 MG in SYRINGE 9.8 ML IV SCH (09:02)
[2021-01-21] MEDS: PANTOprazole 40 MG in SYRINGE 0 ML IV SCH ×2 (09:02→20:50)
[2021-01-21] MEDS: PARoxetine HCL 20 MG TAB PO SCH (09:02)
[2021-01-21] MEDS: THIAMINE HCL 100 MG in SYRINGE 9 ML IV SCH (09:02)
--- NOTE | 2021-01-21 14:46 | Hospitalist Progress Note ---
Date of Service January 21, 2021 Assessment & Plan (1) Recurrent pancreatitis: Has history of chronic pancreatitis secondary to alcohol abuse Admitted with acute abdominal pain and has had nausea with vomiting as an outpatient CT scan of the abdomen pelvis did show acute pancreatitis though the lipase was not elevated Appreciate gastroenterology input. Continue maintenance IV fluids continue pain control. Continue with pantoprazole 40 mg twice daily and Carafate 4 times daily. Patient continues to have significant abdominal pain and feeling nauseous. Patient on clear liquid diet today. (2) Alcohol abuse: Ongoing alcohol abuse No withdrawal symptoms yet Has been on gabapentin withdrawal protocol. (3) Elevated LFTs: Has chronic elevation of the LFTs AST seems to be higher compared with most recent LFT result Secondary to alcohol abuse and has steatosis on CAT scan (4) DM type 2 (diabetes mellitus, type 2): Has been on SSI (5) Depression: No acute confusion Admission and Anticipated Discharge Date Admission Date: January 19, 2021 Subjective Reports he is having 7 out of 10 abdominal pain. Was nauseous earlier but not now. Did have a bowel movement overnight. Denies any fever, vomiting, chest pain or shortness of breath. Wants to try clear liquid diet today. Review of Systems Review of Systems: All systems reviewed & are unremarkable except as noted in HPI & below Physical Exam Physical Exam: General: A&Ox3 HENT: NCAT, MMM, EOMI Eyes: PERRLA Neck: Supple, normal range of motion CVS: normal rate and rhythm Resp: b/l good breath sounds Abdomen: Soft, moderate diffuse tenderness appreciated Extremities: No c/c/e Neuro: face symmetric, , no focal deficit Skin: warm and dry, no rashes/lesions/errythema MSK: normal ROM, no joint swelling/erythema Results & Data Results & [facility] ([facility]) Vital Signs (Past 12 Hours) Vital Signs Temp Pulse Resp BP Pulse Ox 01/21/21 07:59 36.4 C L 76 16 113/71 98 (1) DM type 2 (diabetes mellitus, type 2) Diabetes mellitus complication status: with other specified complication 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
[2021-01-21] MEDS ORDERED: Nursing to Pharmacy Communication SCH (19:00)
[2021-01-22] MEDS: LACTATED RINGER'S 1,000 ML IV SCH ×5 (00:03→20:30)
[2021-01-22] MEDS: HYDROmorphone INJ 0.5 MG/0.5 ML SYR IV PRN ×12 (01:05→23:46)
[2021-01-22] MEDS: ONDANSETRON INJ 2 MG/ML 2 ML VIAL IV PRN ×3 (06:24→21:53)
[2021-01-22] MEDS: ENOXAPARIN INJ 40 MG/0.4 ML SYR SQ SCH ×2 (08:07→08:09)
[2021-01-22] MEDS: PARoxetine HCL 20 MG TAB PO SCH (08:09)
[2021-01-22] MEDS: THIAMINE HCL 100 MG in SYRINGE 9 ML IV SCH (08:09)
[2021-01-22] MEDS: SUCRALFATE 1 GM/10 ML UDC PO SCH ×4 (08:10→21:38)
[2021-01-22] MEDS: FOLIC ACID 1 MG in SYRINGE 9.8 ML IV SCH (09:06)
[2021-01-22] MEDS: PANTOprazole 40 MG in SYRINGE 0 ML IV SCH ×2 (09:07→21:38)
[2021-01-22] MEDS: INSULIN ASPART 100 UNITS/ML 3 ML PEN SC SCH ×4 (09:09→21:38)
--- NOTE | 2021-01-22 14:39 | Hospitalist Progress Note ---
Date of Service January 22, 2021 Assessment & Plan (1) Recurrent pancreatitis: Has history of chronic pancreatitis secondary to alcohol abuse Admitted with acute abdominal pain and has had nausea with vomiting as an outpatient CT scan of the abdomen pelvis did show acute pancreatitis though the lipase was not elevated Appreciate gastroenterology input. Continue maintenance IV fluids continue pain control. Continue with pantoprazole 40 mg twice daily and Carafate 4 times daily. Abdominal pain is improved but still present. Will advance to full liquid diet today. (2) Alcohol abuse: Ongoing alcohol abuse No withdrawal symptoms yet Has been on gabapentin withdrawal protocol. (3) Elevated LFTs: Has chronic elevation of the LFTs AST seems to be higher compared with most recent LFT result Secondary to alcohol abuse and has steatosis on CAT scan (4) DM type 2 (diabetes mellitus, type 2): Has been on SSI (5) Depression: No acute confusion Admission and Anticipated Discharge Date Admission Date: January 19, 2021 Subjective Has been tolerating clear liquid diet. Wants to advance his diet today abdominal pain is improved but is down to 5 out of 10. Further episodes of vomiting does report nausea. Rest of the review of system is negative. Review of Systems Review of Systems: All systems reviewed & are unremarkable except as noted in HPI & below Physical Exam Physical Exam: General: A&Ox3 HENT: NCAT, MMM, EOMI Eyes: PERRLA Neck: Supple, normal range of motion CVS: normal rate and rhythm Resp: b/l good breath sounds Abdomen: Soft, moderate diffuse tenderness appreciated Extremities: No c/c/e Neuro: face symmetric, , no focal deficit Skin: warm and dry, no rashes/lesions/errythema MSK: normal ROM, no joint swelling/erythema Results & Data Results & Data ([facility]) Vital Signs (Past 12 Hours) Vital Signs Temp Pulse Resp BP Pulse Ox 01/22/21 08:38 36.6 C 72 16 120/77 97 (1) DM type 2 (diabetes mellitus, type 2) Diabetes mellitus complication status: with other specified complication 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
[2021-01-22] MEDS ORDERED: GABAPENTIN 600 MG TAB PO SCH (18:00)
[2021-01-23] MEDS: LACTATED RINGER'S 1,000 ML IV SCH ×3 (00:44→11:09)
[2021-01-23] MEDS: HYDROmorphone INJ 0.5 MG/0.5 ML SYR IV PRN ×8 (01:51→17:09)
[2021-01-23] MEDS: ONDANSETRON INJ 2 MG/ML 2 ML VIAL IV PRN (03:54)
[2021-01-23 06:06] LABS: Basophils # (auto) 0.01 K/uL (0-0.2); Basophils % (auto) 0.2 %; Eosinophils # (auto) 0.26 K/uL (0-0.5); Eosinophils % (auto) 6.2 %; Hematocrit (blood only) 40.6 % (42-52); Hemoglobin 14.6 g/dL (14.0-18.0); Lymphocytes # (auto) 1.18 K/uL (1.2-3.4); Lymphocytes % (auto) 28.2 %; Mean Corpuscular Hemoglobin 33.3 pg (25-34); Mean Corpuscular Volume 92.5 fL (80-100); Mean Platelet Volume 9.2 fL (7.4-10.4); Monocytes # (auto) 0.42 K/uL (0.11-0.59); Neutrophils # (auto) 2.31 K/uL (1.4-6.5); Neutrophils % (auto) 55.4 %; Platelet Count 117 K/uL (130-400); RDW Coefficient of Variation 11.6 % (11.5-14.5); RDW Standard Deviation 39.5 fL (36.4-46.3); Red Blood Count 4.39 M/uL (4.7-6.1); White Blood Count 4.18 K/uL (4.8-10.8)
[2021-01-23 06:39] LABS: BUN Creatinine Ratio 2.8 (10-20); Calcium 9.2 mg/dl (8.5-10.1); Creatinine Clr Calc Pharmacy 131.9 ml/min; Est GFR (African American) 125.9 ml/min; Est GFR (Non-African American) 108.6 ml/min; Potassium 3.5 mmol/L (3.5-5.1)
[2021-01-23] MEDS: ENOXAPARIN INJ 40 MG/0.4 ML SYR SQ SCH (08:11)
[2021-01-23] MEDS: THIAMINE HCL 100 MG in SYRINGE 9 ML IV SCH (09:14)
[2021-01-23] MEDS: PARoxetine HCL 20 MG TAB PO SCH (09:14)
[2021-01-23] MEDS: PANTOprazole 40 MG in SYRINGE 0 ML IV SCH (09:14)
[2021-01-23] MEDS: FOLIC ACID 1 MG in SYRINGE 9.8 ML IV SCH (09:14)
[2021-01-23] MEDS: SUCRALFATE 1 GM/10 ML UDC PO SCH ×3 (09:15→17:09)
[2021-01-23] MEDS: INSULIN ASPART 100 UNITS/ML 3 ML PEN SC SCH ×3 (09:16→18:38)
--- NOTE | 2021-01-23 13:27 | Hospitalist Progress Note ---
Date of Service January 23, 2021 Assessment & Plan (1) Recurrent pancreatitis: Has history of chronic pancreatitis secondary to alcohol abuse Admitted with acute abdominal pain and has had nausea with vomiting as an outpatient CT scan of the abdomen pelvis did show acute pancreatitis though the lipase was not elevated Appreciate gastroenterology input. Continue maintenance IV fluids continue; decrease fluids to 100 mill per hour. Continue with pantoprazole 40 mg twice daily; which to oral today and Carafate 4 times daily. Abdominal pain is improved but still present. Currently on solid diet.. (2) Alcohol abuse: Ongoing alcohol abuse No withdrawal symptoms yet Has been on CIWA protocol. (3) Elevated LFTs: Has chronic elevation of the LFTs AST seems to be higher compared with most recent LFT result Secondary to alcohol abuse and has steatosis on CAT scan (4) DM type 2 (diabetes mellitus, type 2): Has been on SSI (5) Depression: No acute confusion Admission and Anticipated Discharge Date Admission Date: January 19, 2021 Subjective Reports his pain is better but still present. Did finish 25% of his meal this morning. Reports nausea is improved. States he wants to take it slowly. Rest of the review of system is negative. Review of Systems Review of Systems: All systems reviewed & are unremarkable except as noted in HPI & below Physical Exam Physical Exam: General: A&Ox3 HENT: NCAT, MMM, EOMI Eyes: PERRLA Neck: Supple, normal range of motion CVS: normal rate and rhythm Resp: b/l good breath sounds Abdomen: Soft, moderate diffuse tenderness appreciated Extremities: No c/c/e Neuro: face symmetric, , no focal deficit Skin: warm and dry, no rashes/lesions/errythema MSK: normal ROM, no joint swelling/erythema Results & Data Results & Data ([facility]) Vital Signs (Past 12 Hours) Vital Signs Temp Pulse Resp BP Pulse Ox 01/23/21 08:18 36.3 C L 69 16 124/74 99 (1) DM type 2 (diabetes mellitus, type 2) Diabetes mellitus complication status: with other specified complication Diabetes mellitus emt intermediate insulin use: with emt intermediate use Qualified Code(s): E11.69 - Type 2 diabetes mellitus with other specified complication; Z79.4 - shelter (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
[2021-01-23 15:18] VITALS: BP 115/73; TEMP 98.2; O2SAT 97
[2021-01-23] MEDS ORDERED: HYDROmorphone INJ 0.5 MG/0.5 ML SYR IV PRN (18:25)
--- NOTE | 2021-01-23 18:52 | Communication Note ---
Date of Service: January 23, 2021 Patient wanted to be discharged however he needs to continue current therapy. This was explained to the patient extensively in detail. The patient still wis hed to sign out against medical advice. I explained the risks of signing out AMA and without finishing the planned upon treatment. Patient decided to leave against medical advice.
[2021-01-23 19:00] VITALS: PULSE 97
[2021-01-23] MEDS ORDERED: PANTOprazole 40 MG TAB PO SCH (21:00)
--- NOTE | 2021-01-31 18:27 | Discharge Summary ---
Date of Service January 31, 2021 Admission HPI Per Admitting Provider This is a 45-year-old male with past medical history significant for ADHD, mood disorder, history of type 2 diabetes, seems to be noncompliant with the medications, GERD, Renae's esophagus, recurrent alcoholic pancreatitis, recurrent admission for alcoholism, history of PE as per records, not on anticoagulation, most likely secondary to alcoholism, history of chronic pain, history of narcotic abuse as per records, terminated medication agreement, history of signing out against medical advice because of Dilaudid not given, history of DKA. The patient comes here because of abdominal pain, says its started today, severe in nature, going like in a band to his back. He states he is still drinking 8 beers every day. Chews tobacco. Lives with his mother. There is nausea. He has had an episode of chest pain for two hours, that has resolved now. Had three episodes of diarrhea. Denies any blood in the stool or black stools and normal bladder movements. Denies any headache, no blurred visions, no earache, no runny nose, no sore throat, no cough, no fever, no chills. Asking for pain medication. Hemodynamics are stable. Admission Exam Per Admitting Provider GENERAL: The patient is of moderate build, not in acute distress. VITAL SIGNS: Temperature 36.9, pulse 97, respiratory rate 20, blood pressure 124/83, oxygen 97% on room air. HEENT: Pupils equal, round and reactive to light. Oral mucosa moist. NECK: No JVD neck masses. CARDIOVASCULAR: S1 and S2 heard. Regular rate and rhythm. No murmur, no gallop. RESPIRATORY SYSTEM: Normal AP diameter. No accessory muscle use. No wheezing, no crackles. ABDOMEN: Soft, bowel sounds present. Diffuse tenderness, guarding present. No distention. CENTRAL NERVOUS SYSTEM: Cranial nerves II-XII grossly intact, nonfocal. EXTREMITIES: No edema, no erythema. Principal Diagnosis Pancreatitis Discharge Exam General: A&Ox3 HENT: NCAT, MMM, EOMI Eyes: PERRLA Neck: Supple, normal range of motion CVS: normal rate and rhythm Resp: b/l good breath sounds Abdomen: Soft, moderate diffuse tenderness appreciated Extremities: No c/c/e Neuro: face symmetric, , no focal deficit Skin: warm and dry, no rashes/lesions/errythema MSK: normal ROM, no joint swelling/erythema Discharge Data Allergies Allergy/AdvReac Type Severity Reaction Status Date / Time No Known Allergies Allergy Verified 01/18/21 22:22 Consultations 01/18/21 23:33 ED Decision to Admit Stat 01/19/21 08:00 Consult Gastroenterology Routine Ordered Studies 01/18/21 22:36 CT abd pelvis IV con only Urgent Hospital Course (1) Recurrent pancreatitis: Has history of chronic pancreatitis secondary to alcohol abuse Admitted with acute abdominal pain and has had nausea with vomiting as an outpatient CT scan of the abdomen pelvis did show acute pancreatitis though the lipase was not elevated Appreciate gastroenterology input. patient was managed for pancreatitis during his hospitalization with fluids /NPO and pain control. However on the day of discharge patient became very agitated because his pain control regimen was changed. Patient was explained the risks of leaving AMA. Patient left AMA. (2) Alcohol abuse: Ongoing alcohol abuse No withdrawal symptoms yet Has been on CIWA protocol. (3) Elevated LFTs: Has chronic elevation of the LFTs AST seems to be higher compared with most recent LFT result Secondary to alcohol abuse and has steatosis on CAT scan (4) DM type 2 (diabetes mellitus, type 2): Has been on SSI (5) Depression: No acute confusion Total Time Total Time Spent Total Time Spent (In Minutes): 35 Discharge Plan Discharge Items Patient Disposition: Against Medical Advice Reason For Visit: ABDOMINAL PAIN Activity: Resume your previous activity Non-emergency contact: Primary Care Provider Follow-up/Referrals: Dhiraj Myers, [Primary Care Provider] - Pending Studies at Discharge: No Stand-Alone Forms: [facility], Smoking Cessation Medications and DC Order Prescriptions: Continued pantoprazole 40 mg tablet,delayed release (DR/EC) 40 mg PO QAM RF: 0 paroxetine HCl 20 mg tablet 20 mg PO QAM RF: 0 acetaminophen [Tylenol 8 Hour] 650 mg tablet extended release 650 mg PO Q8H PRN (Reason: fever or pain) Qty: 14 RF: 0 Discharge Orders: Left Against Medical Advice (Routine); Ordered 01/23/21 Ordered By: Trevor Mitchell Admission Data Admit Date/Time: 01/19/21 02:40 Attending Provider: Trevor Mitchell Admit Provider: Jed Sousa Primary Care Provider: Dhiraj Myers Other Providers: Colton Moreland Other Interventions: Discharge Summary Assessment (RN) Last Done: 01/23/21 18:58
== END 2021-01-23 18:49 | disposition left against medical advice (07) | DRG 440 ==
LOC: ED 21:32 → 3N 01-19 02:40 → SUATTDRO 01-19 02:40 → 3N 01-19 03:34
DX: Z90.49 Acquired absence of other specified parts of digestive tract; F32.9 Major depressive disorder, single episode, unspecified; F90.9 Attention-deficit hyperactivity disorder, unspecified type; K86.0 Alcohol-induced chronic pancreatitis; F10.20 Alcohol dependence, uncomplicated; R79.89 Other specified abnormal findings of blood chemistry; Z79.4 Long term (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

== ENCOUNTER 2021-02-25 22:29 | Inpatient (IN) ==
[2021-02-25] MEDS ORDERED: SODIUM CHLORIDE 0.9% 1000ML 1,000 ML IV STA (22:51)
[2021-02-25] MEDS ORDERED: HYDROmorphone INJ 0.5 MG/0.5 ML SYR IV STA (22:51)
[2021-02-25] MEDS ORDERED: DROPERIDOL 5 MG/2 ML VIAL IV STA (22:51)
[2021-02-25 23:16] LABS: Basophils # (auto) 0.02 K/uL (0-0.2); Basophils % (auto) 0.4 %; Eosinophils # (auto) 0.24 K/uL (0-0.5); Eosinophils % (auto) 4.2 %; Hematocrit (blood only) 44.5 % (42-52); Hemoglobin 15.7 g/dL (14.0-18.0); Lymphocytes # (auto) 1.99 K/uL (1.2-3.4); Lymphocytes % (auto) 35.2 %; Mean Corpuscular Hemoglobin 33.1 pg (25-34); Mean Corpuscular Hgb Conc 35.3 g/dL (32-36); Mean Corpuscular Volume 93.9 fL (80-100); Mean Platelet Volume 9.1 fL (7.4-10.4); Monocytes # (auto) 0.46 K/uL (0.11-0.59); Monocytes % (auto) 8.1 %; Neutrophils # (auto) 2.94 K/uL (1.4-6.5); Neutrophils % (auto) 52.1 %; Platelet Count 151 K/uL (130-400); RDW Coefficient of Variation 12.1 % (11.5-14.5); RDW Standard Deviation 41.2 fL (36.4-46.3); Red Blood Count 4.74 M/uL (4.7-6.1); White Blood Count 5.65 K/uL (4.8-10.8)
[2021-02-25 23:37] LABS: Appearance Urine Clear (Clear); Bilirubin Urine Negative (Negative); Blood Urine Negative (Negative); Color Urine Yellow; Glucose Urine UA 3+ (Negative); Ketones Urine Negative (Negative); Leukocyte Esterase Urine Negative (Negative); Nitrite Urine Negative (Negative); Protein Urine Negative (Negative); Specific Gravity Urine 1.007 (1.000-1.030); Urobilinogen Urine Negative (Negative)
[2021-02-25 23:48] LABS: Alanine Aminotransferase 88 U/L (12-78); Albumin Globulin Ratio 0.7 (0.9-2); Albumin Level 3.1 gm/dl (3.4-5.0); Alkaline Phosphatase 73 U/L (45-117); Aspartate Aminotransferase 96 U/L (15-37); BUN Creatinine Ratio 6.5 (10-20); Bilirubin,Total 0.6 mg/dl (0.2-1); Blood Urea Nitrogen 7 mg/dl (7-18); Carbon Dioxide 24 mmol/L (21-32); Chloride 101 mmol/L (98-107); Est GFR (African American) 102.2 ml/min; Est GFR (Non-African American) 88.2 ml/min; Globulin 4.1 gm/dl (2.5-4.0); Glucose 301 mg/dl (70-99); Lipase 112 U/L (73-393); Potassium 3.1 mmol/L (3.5-5.1); Sodium 136 mmol/L (136-145); Total Protein 7.2 gm/dl (6.4-8.2); Troponin I < 0.015 ng/ml (0-0.045)
[2021-02-26 00:06] LABS: Beta-Hydroxybutyrate 2.69 mg/dl (0.2-2.81)
--- NOTE | 2021-02-26 00:16 | Emergency Department Note ---
History of Present Illness General Chief complaint: Abdominal Pain Stated complaint: STOMACH & BACK PAIN Time Seen by Provider: 02/25/21 22:40 History of Present Illness Maximum Pain Intensity: 10 This 45-year-old with recurrent alcoholic pancreatitis presents to the ER complaining of abdominal pain has been drinking all day with concerns of recurrent pancreatitis Location: Abdomen Quality: Painful Severity: Moderate Duration: Today Timing: Today Context: Patient was concerned and came in Modifying factors: better with nothing; worse with activity Patient denies chest pain, dyspnea, fevers, flulike illness. Home Medications Medication Instructions Recorded Confirmed Type paroxetine HCl 20 mg tablet 20 mg PO QAM 12/20/19 02/26/21 History pantoprazole 40 mg tablet,delayed 40 mg PO QAM 01/18/20 02/26/21 History release Allergies Allergy/AdvReac Type Severity Reaction Status Date / Time No Known Allergies Allergy Verified 02/26/21 00:14 Past Med/Surg History Medical History (Updated 02/26/21 @ 01:24 by Maryan Jo PA-C) Abdominal pain Acute hyperglycemia Alcohol abuse (Unknown) Alcohol abuse Renae's esophagus (Unknown) "per EGD 11/23/09 " On 05/31/11 09:06 Martinez Jose wrote "per EGD 11/23/09 " Chest pain Depression Depression DM type 2 (diabetes mellitus, type 2) Encounter for alcohol abuse counseling and surveillance Encounter for pre-operative examination Encounter for tobacco use cessation counseling H/O acute pancreatitis "recurrent" History of substance abuse Hyperglycemia Intentional drug overdose Lumbar degenerative disc disease Mood disorder Mood disorder Neuropathy Pancreatitis Panic disorder Pulmonary embolism Suicidal ideation Suicidal ideation Suicide attempt Surgical History H/O esophagogastroduodenoscopy "EGD 11/23/2009- mild gastritis, suspicious for gastroparesis, Z-line irregular EUS 02/04/2010- mild chronic pancreatitis, pronounced cholesterolosis of gallbladder, no biliary dilation or stones, probable gastroparesis EGD 10/31/2014- gastritis" S/P lumbar fusion L4-S1 2014 Family History Father Alcohol abuse Social History Smoking Status: Never smoker Tobacco Type: Smokeless Tobacco (Dip or Chew) Second Hand Exposure: No; Hx Alcohol Use: Yes Alcohol type: beer Hx Substance Use: No Preferred Language: Liberian Communication Ability: Effective Block And Case Maker Required: No Beliefs That Will Affect Care: None marital status: Current Living Situation: Parent Current Living Situation Comment: with mother Feels Safe at Home: Yes Assistive Devices: None Review of Systems A total of 10 systems reviewed and were otherwise negative Physical Exam Vital Signs Vital Signs - 24 hr 02/25/21 22:18 02/25/21 22:34 02/25/21 23:13 Temperature 36.6 C Temperature Source Temporal Artery Scan Pulse Rate 105 H 110 H 102 H Pulse Rate from SpO2 Sensor 101 H Pulse Rhythm Regular Pulse Strength Normal Respiratory Rate 23 16 15 Respiratory Effort / Characteristics Non-Labored Respiratory Depth Normal Respiratory Pattern Regular Blood Pressure 127/73 141/95 H 123/85 Blood Pressure Mean 91 110 97 Blood Pressure Position Sitting Pulse Oximetry 95 95 Oxygen Delivery Method Room Air Sepsis Recent Fever Within 48 Hours No Sepsis New/Unexplained Change in Mental Status N/A Sepsis Action Taken by Nursing No Action Required 02/25/21 23:30 02/26/21 00:02 02/26/21 00:30 Temperature Temperature Source Pulse Rate 93 H 94 H 94 H Pulse Rate from SpO2 Sensor 94 H 95 H 93 H Pulse Rhythm Pulse Strength Respiratory Rate 18 18 Respiratory Effort / Characteristics Respiratory Depth Respiratory Pattern Blood Pressure 115/76 Blood Pressure Mean 89 Blood Pressure Position Pulse Oximetry 94 97 95 Oxygen Delivery Method Sepsis Recent Fever Within 48 Hours Sepsis New/Unexplained Change in Mental Status Sepsis Action Taken by Nursing 02/26/21 01:00 Temperature Temperature Source Pulse Rate 91 H Pulse Rate from SpO2 Sensor 90 Pulse Rhythm Pulse Strength Respiratory Rate 16 Respiratory Effort / Characteristics Respiratory Depth Respiratory Pattern Blood Pressure 125/86 Blood Pressure Mean 99 Blood Pressure Position Pulse Oximetry 97 Oxygen Delivery Method Sepsis Recent Fever Within 48 Hours Sepsis New/Unexplained Change in Mental Status Sepsis Action Taken by Nursing VITALS: Vitals are noted on the nurse's note and reviewed by myself. Vital signs stable. GENERAL: White male with a EtOH odor who appears in pain, in no acute distress, nondiaphoretic, well-developed well-nourished. SKIN: The skin was without rashes, erythema, edema, or bruising. There is no tenting of the skin. Capillary reflex less than 2 seconds. HEAD: Normocephalic atraumatic. EARS: External auditory canals clear, EYES: Pupils equal round and reactive to light and accommodation. Conjunctivae without injection, sclerae without icterus. Extraocular movements intact. NOSE: Patent, turbinates without inflammation or discharge. MOUTH: Mucous membranes dry pharynx without erythema or exudate. Uvula midline. Airway patent. Tongue does not deviate. NECK: Supple without nuchal rigidity. No lymphadenopathy. No thyromegaly. Cervical spine is nontender. No JVD. HEART: Regular rate and rhythm LUNGS: Clear to auscultation bilaterally without wheezes, rales or rhonchi. No retractions or accessory muscle use. ABDOMEN: Positive bowel sounds x 4. Normal tympanic percussion. Soft, tender to palpation upper abdomen, without masses or organomegaly. Estrella sign negative. No guarding or rebound tenderness. No CVA tenderness MUSCULOSKELETAL: No muscle atrophy, erythema, or edema noted. NEURO: Patient was alert and oriented to person place and time. Normal sensation to light and sharp touch. No focal neurological deficits. Course Administered Medications Discontinued Medications Droperidol (Droperidol 5 Mg/2 Ml Vial) 1.25 mg IV ONE STA Stop: 02/25/21 22:52 Last Admin: 02/25/21 23:10 Dose: 1.25 mg Documented by: [id number] Hydromorphone HCl (Hydromorphone Inj 0.5 Mg/0.5 Ml Syr) 0.5 mg IV NOW STA Stop: 02/25/21 22:52 Last Admin: 02/25/21 23:10 Dose: 0.5 mg Documented by: [id number] Sodium Chloride (Nss 1000ml) 1,000 mls @ 999 mls/hr IV .Q1H1M STA Stop: 02/25/21 23:51 Last Infusion: 02/26/21 00:42 Dose: 0 mls/hr Documented by: [id number] Admin: 02/25/21 23:09 Dose: 999 mls/hr Documented by: [id number] Ioversol (Optiray 320 100ml) 100 ml IV ONCE ONE Stop: 02/26/21 00:27 Last Admin: 02/26/21 00:26 Dose: 93 ml Documented by: [id number] Medical Decision Making Medical Records Attestation: I reviewed the patient's medical records. Home Medications Current Medication List: was personally reviewed by me Laboratory Data Attestation: I reviewed the patient's lab results. Result diagrams: 02/25/21 23:00 02/25/21 23:00 Lab Results 02/25/21 02/25/21 02/25/21 Range/Units 23:00 23:00 23:00 WBC 5.65 (4.8-10.8) K/uL RBC 4.74 (4.7-6.1) M/uL Hgb 15.7 (14.0-18.0) g/dL Hct 44.5 (42-52) % MCV 93.9 (80-100) fL MCH 33.1 (25-34) pg MCHC 35.3 (32-36) g/dL RDW Std Deviation 41.2 (36.4-46.3) fL RDW Coeff of Gucci 12.1 (11.5-14.5) % Plt Count 151 (130-400) K/uL MPV 9.1 (7.4-10.4) fL Immature Gran % (Auto) 0.0 % Neut % (Auto) 52.1 % Lymph % (Auto) 35.2 % [place] % (Auto) 8.1 % Eos % (Auto) 4.2 % Baso % (Auto) 0.4 % Neut # (Auto) 2.94 (1.4-6.5) K/uL Lymph # (Auto) 1.99 (1.2-3.4) K/uL [place] # (Auto) 0.46 (0.11-0.59) K/uL Eos # (Auto) 0.24 (0-0.5) K/uL Baso # (Auto) 0.02 (0-0.2) K/uL Immature Gran # (Auto) 0.00 (0.00-0.02) K/uL Sodium 136 (136-145) mmol/L Potassium 3.1 L (3.5-5.1) mmol/L Chloride 101 (98-107) mmol/L Carbon Dioxide 24 (21-32) mmol/L Anion Gap 11.0 (3-11) BUN 7 (7-18) mg/dl Creatinine 1.01 (0.6-1.4) mg/dl Est Cr Clr Drug Dosing 108.0 ml/min Est GFR ( Amer) 102.2 ml/min Est GFR (Non-Af Amer) 88.2 ml/min BUN/Creatinine Ratio 6.5 L (10-20) Glucose 301 H* (70-99) mg/dl Calcium 9.0 (8.5-10.1) mg/dl Total Bilirubin 0.6 (0.2-1) mg/dl AST 96 H (15-37) U/L ALT 88 H (12-78) U/L Alkaline Phosphatase 73 (45-117) U/L Troponin I < 0.015 (0-0.045) ng/ml Total Protein 7.2 (6.4-8.2) gm/dl Albumin 3.1 L (3.4-5.0) gm/dl Globulin 4.1 H (2.5-4.0) gm/dl Albumin/Globulin Ratio 0.7 L (0.9-2) Lipase 112 (73-393) U/L Beta-Hydroxybutyric Acd 2.69 (0.2-2.81) mg/dl Urine Color Urine Appearance (Clear) Urine pH (4.5-7.5) Ur Specific [place] (1.000-1.030) Urine Protein (Negative) Urine Glucose (UA) (Negative) Urine Ketones (Negative) Urine Blood (Negative) Urine Nitrite (Negative) Urine Bilirubin (Negative) Urine Urobilinogen (Negative) Ur Leukocyte Esterase (Negative) Ethyl Alcohol mg/dL 356.3 H (0-3) mg/dl 02/25/21 Range/Units 23:03 WBC (4.8-10.8) K/uL RBC (4.7-6.1) M/uL Hgb (14.0-18.0) g/dL Hct (42-52) % MCV (80-100) fL MCH (25-34) pg MCHC (32-36) g/dL RDW Std Deviation (36.4-46.3) fL RDW Coeff of Gucci (11.5-14.5) % Plt Count (130-400) K/uL MPV (7.4-10.4) fL Immature Gran % (Auto) % Neut % (Auto) % Lymph % (Auto) % [place] % (Auto) % Eos % (Auto) % Baso % (Auto) % Neut # (Auto) (1.4-6.5) K/uL Lymph # (Auto) (1.2-3.4) K/uL [place] # (Auto) (0.11-0.59) K/uL Eos # (Auto) (0-0.5) K/uL Baso # (Auto) (0-0.2) K/uL Immature Gran # (Auto) (0.00-0.02) K/uL Sodium (136-145) mmol/L Potassium (3.5-5.1) mmol/L Chloride (98-107) mmol/L Carbon Dioxide (21-32) mmol/L Anion Gap (3-11) BUN (7-18) mg/dl Creatinine (0.6-1.4) mg/dl Est Cr Clr Drug Dosing ml/min Est GFR ( Amer) ml/min Est GFR (Non-Af Amer) ml/min BUN/Creatinine Ratio (10-20) Glucose (70-99) mg/dl Calcium (8.5-10.1) mg/dl Total Bilirubin (0.2-1) mg/dl AST (15-37) U/L ALT (12-78) U/L Alkaline Phosphatase (45-117) U/L Troponin I (0-0.045) ng/ml Total Protein (6.4-8.2) gm/dl Albumin (3.4-5.0) gm/dl Globulin (2.5-4.0) gm/dl Albumin/Globulin Ratio (0.9-2) Lipase (73-393) U/L Beta-Hydroxybutyric Acd (0.2-2.81) mg/dl Urine Color Yellow Urine Appearance Clear (Clear) Urine pH 6.0 (4.5-7.5) Ur Specific [place] 1.007 (1.000-1.030) Urine Protein Negative (Negative) Urine Glucose (UA) 3+ H (Negative) Urine Ketones Negative (Negative) Urine Blood Negative (Negative) Urine Nitrite Negative (Negative) Urine Bilirubin Negative (Negative) Urine Urobilinogen Negative (Negative) Ur Leukocyte Esterase Negative (Negative) Ethyl Alcohol mg/dL (0-3) mg/dl Imaging Data Attestation: I personally reviewed and interpreted this imaging study as follows: MDM Narrative Prior records/ancillary studies reviewed. Triage Nursing notes reviewed. Additional history obtained from nursing. The patient's history was concerning for abdominal pain. Differential diagnosis: Etiologies such as appendicitis, diverticulitis, PUD, biliary pathology, UTI, pancreatitis, obstruction, mesenteric ischemia, aortic pathology, infections, inflammatory bowel disease, renal colic, as well as others were entertained. Physical examination findings: As above. ER treatment provided: An order was placed for continuous cardiac monitoring. The monitor shows a rate of 60-1 20 with a sinus rhythm. IV fluids, droperidol, Dilaudid On reassessment the patient felt better. Diagnostics interpreted by me: ECG: Ordered for abdominal pain EKG: Poor baseline, normal sinus, normal intervals, no acute ST-T wave changes. Impression normal sinus rhythm interpreted by myself I think arrhythmia is unlikely. EKG shows normal sinus rhythm with no interval abnormalities such as QT prolongation or WPW. There are no findings to suggest Brugada syndrome. Cardiac monitoring in the emergency department reveals no tachycardic or bradycardic dysrhythmia. Hypertrophic cardiomyopathy was considered but there are no clear historical elements pointing toward this. EKG is not suggestive. The QRS voltage is not extremely large and there are no suggestive Q waves. The labs revealed elevated alcohol, hyperglycemia without DKA Imaging studies: Preliminary Findings Only See Final Report For Complete Findings CT ABDOMEN & PELVIS With Contrast: Direct comparison made with prior study from January 18, 2021. The liver is low in attenuation suggesting diffuse fatty a titration. Spleen and pancreas appear normal. Gallbladder is surgically absent. Stomach, small bowel, and colon appear normal. The appendix is not visualized. The adrenals kidneys ureters and bladder appear normal. Prostate appears normal. Vascular structures appear normal. There is no free peritoneal air or fluid. There are surgical changes in the lumbar spine which are stable from the prior study. Impression: No acute findings Radiologist: Mikael Montes De Oca MD Consultation: A consultation was placed with the hospitalist. The case was discussed and diagnostics were reviewed. The patient was evaluated in the ER for further treatment. Exam and history seem consistent with recurrent alcoholic pancreatitis. Medicine was consulted. He will be evaluated for admission. He was hydrated as above. By the evaluation outlined above emergent etiologies such as appendicitis, diverticulitis, PUD, biliary pathology, UTI, obstruction, mesenteric ischemia, aortic pathology, infections, inflammatory bowel disease, renal colic, as well as others were deemed relatively unlikely. The pt informed about the findings as listed above. All questions were answered and pleased with the treatment. The chart was completed utilizing [employer] Speech voice recognition software. Grammatical errors, random word insertions, pronoun errors, and incomplete sentences are an occassional consequence of this system due to software limitations, ambient noise, and hardware issues. Any formal questions or concerns about the content, text, or information contained within the body of this dictation should be directly addressed to the physician veterinarian assistant for clarification. Impression & Plan Alcohol abuse, Acute alcoholic pancreatitis Discharge Plan Visit Data Chief Complaint: Abdominal Pain Stated Complaint: STOMACH & BACK PAIN ED Provider: Radha Jeong ED Midlevel Provider: Maryan Jo Discharge Problem: Alcohol abuse, Acute alcoholic pancreatitis Patient Disposition: Admitted As Inpatient Condition: Fair Forms Stand Alone Forms: [facility] [employer] Prescriptions Prescriptions: No Action pantoprazole 40 mg tablet,delayed release (DR/EC) 40 mg PO QAM RF: 0 paroxetine HCl 20 mg tablet 20 mg PO QAM RF: 0 Referrals Referrals: Dhiraj Myers DO [Primary Care Provider] -
[2021-02-26] MEDS ORDERED: OPTIRAY 320 100ml IV ONE (00:26)
[2021-02-26] MEDS ORDERED: GABAPENTIN 1200MG ALCOHOL WITHDRAWAL LOAD PO STA (02:07)
[2021-02-26] MEDS ORDERED: NovoLIN-R INSULIN PER UNIT CHARGE IV STA (02:09)
[2021-02-26] MEDS ORDERED: LORazepam 2 MG/4 ML VIAL IV PRN (03:04)
[2021-02-26] MEDS ORDERED: LORazepam 1 MG/2 ML VIAL IV PRN (03:04)
[2021-02-26] MEDS ORDERED: ATIVAN IV ALCOHOL WITHDRAWL IV PRN (03:04)
[2021-02-26] MEDS ORDERED: NITROGLYCERIN SL 0.4 MG/TAB TAB SL PRN (03:04)
[2021-02-26] MEDS ORDERED: LORazepam 3 MG/6 ML VIAL IV PRN (03:04)
[2021-02-26] MEDS ORDERED: GABAPENTIN 600 MG TAB PO ONE (03:15)
--- NOTE | 2021-02-26 03:16 | History and Physical Report ---
DATE OF ADMISSION: 02/26/21 CHIEF COMPLAINT: Abdominal pain. Alcoholism. HISTORY OF PRESENT ILLNESS: This 45-year-old male with past medical history significant for ADHD, mood disorder, history of type 2 diabetes, noncompliance with his medications, GERD, Renae's esophagus, alcoholic pancreatitis, recurrent admissions for alcoholism, history of PE as per records, not on anticoagulation, history of chronic pain, history of narcotic abuse as per records, terminated medication agreement, history of signing out against medical advice because not given pain medication. History of DKA. The patient comes because of abdominal pain. The patient is still drinking 8 beers every day. He states since yesterday he is having severe abdominal pain radiating to the back, associated with nausea, vomiting, some pain coming to the chest sometimes. Denies any diarrhea or constipation. Denies any bloody stools or black stools. Normal bladder movements. No fever, no chills. No cough. no shortness of breath, no headache, no blurred visions, no earache, no runny nose, no sore throat, no cough, no swelling in the legs. Currently resting comfortably, hemodynamically stable, and asking for pain medication. His alcohol level is 356. His glucose level was 301. The patient states since he is only taking paroxetine and Protonix at home currently and he says he is taking new medication for diabetes for the last 2 days. Per Epic notes he was on glimepiride for a long time and seems he was not taking it. ALLERGIES: No known drug allergies. PAST MEDICAL HISTORY: As mentioned above. PAST SURGICAL HISTORY: EGDs, laparoscopic cholecystectomy, EGD with endoscopic ultrasound, history of A-port placement, history of appendectomy. MEDICATIONS: The patient currently taking paroxetine 20 mg p.o. a.m., Protonix 40 mg p.o. a.m. FAMILY HISTORY: Significant for aunt has manic depression. Father has depression and alcohol abuse. SOCIAL HISTORY: Lives with his mom. No smoking. Chews tobacco. Drinks alcohol 8 beers every day. He was in rehab in the past in 2000 and again in 2016. No drug use. REVIEW OF SYMPTOMS: As per HPI. Rest of review of systems is negative. PHYSICAL EXAMINATION: GENERAL: The patient is of moderate build, not in acute distress. VITAL SIGNS: Temperature 36.6, pulse 91, respiratory rate 16, blood pressure 125/86, oxygen 97% on room air. HEENT: Pupils equal, round and reactive to light. Oral mucosa moist. NECK: No JVD or neck masses. HEART: S1 and S2 heard. Regular rate and rhythm. No murmur, no gallop. RESPIRATORY SYSTEM: Normal AP diameter. No accessory muscle use. No wheezing, no crackles. ABDOMEN: Soft, bowel sounds present. Diffuse tenderness, mild guarding, no rigidity, no distention. CENTRAL NERVOUS SYSTEM: Cranial nerves II-XII grossly intact, nonfocal. EXTREMITIES: No edema, no erythema. LABORATORY DATA: WBC 5.6, hemoglobin 15.7, hematocrit 44.5, platelets 151. Sodium 136, potassium 3.1, chloride 101, bicarbonate 24, BUN 7, creatinine 1.01, serum glucose 301, calcium 9, total bilirubin 0.6, AST 96, ALT 88, alkaline phosphatase 73. Troponin I less than 0.015. Lipase 112. Ethyl alcohol 356. SARS-CoV-2 PCR negative. EKG NSR with rate of 98. No acute st changes seen. No significant change from previous ekg IMAGING DATA: CT of abdomen and pelvis preliminary report unremarkable. ASSESSMENT AND PLAN: This 45-year-old male presents with abdominal pain and alcoholism. 1. Abdominal pain mostly from alcoholism, alcoholic gastritis. At this time, lipase negative. CT of the abdomen and pelvis did not show any pancreatitis. We will continue his home Protonix, clear liquid diet and antiemetics and monitor. 2. Alcoholism ongoing, recurrent admission for alcoholism. The patient has been in alcohol rehab in the past. We will place him on IV thiamine, IV folic acid, multivitamins and place him on gabapentin alcohol protocol and IV Ativan p.r.n. per protocol and monitor in the [facility] tele. 3. Diabetes, noncompliance with medications. We will place him on Lantus insulin sliding scale and advised the patient to be compliant. Follow HbA1c levels. 4. Chest pain. Coming from abdomen? ekg and troponin negative. will follow repeat ekg and troponin l;evels. 5. Depression. Continue his paroxetine 6. Hypokalemia. We will replace. 7. Elevated LFTs. We will follow repeat labs. 8. Deep venous thrombosis prophylaxis. Heparin subcu. DISPOSITION: Closely monitor in the [facility] tele. PT, OT prior to discharge. Social service to help with discharge planning. Level 1 full code. Job ID: [id number] [email or web address]
[2021-02-26] MEDS: SODIUM CHLORIDE 0.9% 1000ML 1,000 ML IV SCH ×2 (03:47→11:55)
[2021-02-26] MEDS: FOLIC ACID 1 MG in SYRINGE 9.8 ML IV SCH (03:47)
[2021-02-26] MEDS: THIAMINE HCL 100 MG in SYRINGE 9 ML IV SCH (03:47)
[2021-02-26] MEDS: HEPARIN SOD 5,000 UNIT/0.5 ML VIAL SQ SCH ×3 (05:58→21:03)
[2021-02-26] MEDS ORDERED: POTASSIUM CHLORIDE CRTAB 20 MEQ TABCR PO STA (06:13)
--- NOTE | 2021-02-26 07:25 | CT Scan Report ---
CT OF THE ABDOMEN AND PELVIS WITH CONTRAST CLINICAL HISTORY: Upper abdominal pain. Evaluate for acute pancreatitis. COMPARISON STUDY: CT of the abdomen and pelvis January 18, 2021. TECHNIQUE: Following IV administration of 93 mL of Optiray, axial images of the abdomen and pelvis we re obtained from the lung bases to the proximal femurs. Images were reviewed in the axial, sagittal, and coronal planes. IV contrast was administered without complication. Automated exposure control wa s utilized for the study. A dose lowering technique was utilized adhering to the principles of ALARA . CT DOSE: 556.65 mGy.cm FINDINGS: Lung bases are unremarkable. No pneumatosis, free air or portal venous gas is present. Hepa tic steatosis is noted. There is no biliary ductal dilatation status post cholecystectomy. The main, left and right portal veins are patent. Upper abdominal collaterals are again noted. There is pancrea tic glandular atrophy which was shown on prior exam. There are several calcifications within the unci haylie process of the pancreas. Peripancreatic infiltration has essentially resolved since prior CT of January 18, 2021. There is no peripancreatic fluid collection. There is no evidence for a bowel obstruct ion. The caliber and wall thickness of small and large bowel are normal. Bladder is distended. Postop erative findings within the spine are incidentally noted. IMPRESSION: 1. Near complete resolution of peripancreatic infiltration shown on prior CT. No definite acute findi ngs on this exam. Evidence for chronic pancreatitis. No peripancreatic fluid collection. 2. Hepatic steatosis. 3. Distended bladder. ACT 112: Negative or not required by law. Electronically signed by: Quinton Corrales M.D. 02/26/2021 7:24 AM
[2021-02-26 08:45] LABS: Basophils # (auto) 0.02 K/uL (0-0.2); Basophils % (auto) 0.6 %; Eosinophils % (auto) 5.6 %; Hematocrit (blood only) 43.8 % (42-52); Hemoglobin 15.4 g/dL (14.0-18.0); Lymphocytes # (auto) 1.47 K/uL (1.2-3.4); Lymphocytes % (auto) 41.2 %; Mean Corpuscular Hemoglobin 33.3 pg (25-34); Mean Corpuscular Hgb Conc 35.2 g/dL (32-36); Mean Corpuscular Volume 94.6 fL (80-100); Monocytes # (auto) 0.34 K/uL (0.11-0.59); Monocytes % (auto) 9.5 %; Neutrophils # (auto) 1.54 K/uL (1.4-6.5); Neutrophils % (auto) 43.1 %; Platelet Count 139 K/uL (130-400); RDW Coefficient of Variation 12.3 % (11.5-14.5); RDW Standard Deviation 42.3 fL (36.4-46.3); Red Blood Count 4.63 M/uL (4.7-6.1); White Blood Count 3.57 K/uL (4.8-10.8)
--- NOTE | 2021-02-26 09:10 | Electrocardiogram Report ---
Test Reason : Blood Pressure : / mmHG Vent. Rate : 098 BPM Atrial Rate : 098 BPM P-R Int : 160 ms QRS Dur : 088 ms QT Int : 344 ms P-R-T Axes : 062 060 052 degrees QTc Int : 439 ms Normal sinus rhythm Normal ECG When compared with ECG of 18-JAN-2021 22:07, No significant change was found Confirmed by Mundo Ordonez ([id number]) on 02/26/2021 9:09:40 AM Referred By: REFERRED SELF Confirmed By:Mundo Ordonez
[2021-02-26 09:13] LABS: BUN Creatinine Ratio 7.6 (10-20); Calcium 8.7 mg/dl (8.5-10.1); Creatinine Clr Calc Pharmacy 137.3 ml/min; Est GFR (Non-African American) 110.5 ml/min; Magnesium 1.9 mg/dl (1.8-2.4); Potassium 3.6 mmol/L (3.5-5.1)
[2021-02-26] MEDS: INSULIN ASPART 100 UNITS/ML 3 ML PEN SC SCH ×4 (09:46→21:03)
[2021-02-26] MEDS: INSULIN GLARGINE SOLOSTAR 100 UNITS/ML 3 ML PEN SC SCH ×2 (09:47→20:17)
[2021-02-26] MEDS: PANTOprazole 40 MG TAB PO SCH (10:08)
[2021-02-26] MEDS: CEROVITE ADV FORMULA TAB PO SCH (10:08)
[2021-02-26] MEDS: PARoxetine HCL 20 MG TAB PO SCH (10:08)
[2021-02-26] MEDS: GABAPENTIN 600 MG TAB PO SCH ×3 (10:08→23:17)
[2021-02-26 10:39] LABS: Estimated Average Glucose 217 mg/dl; Hemoglobin A1C 9.2 % (4.5-5.6)
--- NOTE | 2021-02-26 16:24 | Electrocardiogram Report ---
Test Reason : Blood Pressure : / mmHG Vent. Rate : 073 BPM Atrial Rate : 073 BPM P-R Int : 152 ms QRS Dur : 086 ms QT Int : 396 ms P-R-T Axes : 067 048 045 degrees QTc Int : 436 ms Normal sinus rhythm Normal ECG When compared with ECG of 25-FEB-2021 22:43, No significant change was found Confirmed by Faizan Vallejo ([id number]) on 02/26/2021 4:23:54 PM Referred By: REFERRED SELF Confirmed By:Faizan Vallejo
[2021-02-26] MEDS ORDERED: HYDROmorphone INJ 0.5 MG/0.5 ML SYR IV STA (20:58)
[2021-02-27] MEDS: HEPARIN SOD 5,000 UNIT/0.5 ML VIAL SQ SCH ×3 (05:52→20:57)
[2021-02-27 08:10] LABS: Albumin Level 2.8 gm/dl (3.4-5.0); Bilirubin Direct 0.4 mg/dl (0-0.2); Bilirubin,Total 1.8 mg/dl (0.2-1); Total Protein 6.2 gm/dl (6.4-8.2)
[2021-02-27 08:19] LABS: BUN Creatinine Ratio 7.7 (10-20); Calcium 9.1 mg/dl (8.5-10.1); Creatinine Clr Calc Pharmacy 139.2 ml/min; Est GFR (African American) 128.7 ml/min; Est GFR (Non-African American) 111.1 ml/min; Magnesium 1.8 mg/dl (1.8-2.4); Phosphorus 2.6 mg/dl (2.5-4.9); Potassium 3.4 mmol/L (3.5-5.1)
[2021-02-27] MEDS ORDERED: ACETAMINOPHEN 325 MG TAB PO PRN ×2 (08:25→08:31)
[2021-02-27] MEDS ORDERED: GABAPENTIN 100 MG CAP PO PRN (08:27)
[2021-02-27] MEDS ORDERED: POTASSIUM CHLORIDE CRTAB 20 MEQ TABCR PO STA (08:35)
--- NOTE | 2021-02-27 08:37 | Hospitalist Progress Note ---
Date of Service February 27, 2021 Assessment & Plan (1) Chronic pancreatitis: (2) Acute hyperglycemia: (3) Elevated LFTs: (4) Alcohol withdrawal: (5) DM type 2 (diabetes mellitus, type 2): Plan: This 45-year-old male presents with abdominal pain and alcoholism. 1. Abdominal pain mostly from alcoholism, alcoholic gastritis. At this time, lipase negative. CT of the abdomen and pelvis did not show any pancreatitis. We will continue his home Protonix, clear liquid diet and antiemetics and monitor. Patient reports pain is not much improving, especially when he tries to eat, will do IV fluids and continue clear liquid diet IV pain meds prn 2. Alcoholism ongoing, recurrent admission for alcoholism. The patient has been in alcohol rehab in the past. We will place him on IV thiamine, IV folic acid, multivitamins and place him on gabapentin alcohol protocol and IV Ativan p.r.n. per protocol and monitor in the MAPPING tele. 3. Diabetes, noncompliance with medications. Current Hgb A1c 9.2% We will place him on Lantus insulin sliding scale and advised the patient to be compliant. 4. Chest pain. Coming from abdomen? ekg and troponin negative. repeat ekg unremarkable denies any more chest pain 5. Depression. Continue his paroxetine 6. Hypokalemia. We will replace. 7. Elevated LFTs. We will follow repeat labs. DVT prophylaxis. Heparin subcu. DISPOSITION: Closely monitor in the med tele. PT, OT prior to discharge. Social service to help with discharge planning. full code. Admission and Anticipated Discharge Date Admission Date: February 26, 2021 Subjective Patient seen in follow-up for abdominal pain, alcohol withdrawal Currently laying in bed, appears in no acute distress, however keeps complaining of abdominal pain. Patient's mother at the bedside. Denies fevers chills chest pain or shortness of breath Review of Systems Constitutional: no fever and no chills Respiratory: no cough and no dyspnea Cardiovascular: no chest pain and no palpitations Gastrointestinal: no abdominal pain, no nausea and no vomiting Physical Exam Physical Exam: GENERAL: The patient is of moderate build, not in acute distress. HEENT: NC/ AT, Pupils equal, round and reactive to light. Oral mucosa moist. NECK: No JVD or neck masses. HEART: S1 and S2 heard. Regular rate and rhythm. No murmur, no gallop. RESPIRATORY: Normal AP diameter. No accessory muscle use. No wheezing, no crackles. ABDOMEN: Soft, bowel sounds present. Diffuse tenderness, mild guarding, no rigidity, no distention. NEURO: Alert and oriented x3, speech fluent, no facial asymmetry, moves extremities EXTREMITIES: No edema, no erythema. Results & Data Results & Data ([facility]) Vital Signs (Past 12 Hours) Vital Signs Temp Pulse Pulse Resp BP Pulse Ox 02/27/21 07:19 36.6 C 83 18 155/81 H 99 02/27/21 03:10 36.5 C 93 H 20 130/87 95 02/27/21 01:33 112 H 02/26/21 23:24 37.3 C 109 H 20 121/75 97 Laboratory Results 02/27/21 02/27/21 02/27/21 Range/Units 07:46 07:36 06:56 WBC (4.8-10.8) K/uL RBC (4.7-6.1) M/uL Hgb (14.0-18.0) g/dL Hct (42-52) % MCV (80-100) fL MCH (25-34) pg MCHC (32-36) g/dL RDW Std Deviation (36.4-46.3) fL RDW Coeff of Gucci (11.5-14.5) % Plt Count (130-400) K/uL MPV (7.4-10.4) fL Immature Gran % (Auto) % Neut % (Auto) % Lymph % (Auto) % Ballard % (Auto) % Eos % (Auto) % Baso % (Auto) % Neut # (Auto) (1.4-6.5) K/uL Lymph # (Auto) (1.2-3.4) K/uL Ballard # (Auto) (0.11-0.59) K/uL Eos # (Auto) (0-0.5) K/uL Baso # (Auto) (0-0.2) K/uL Immature Gran # (Auto) (0.00-0.02) K/uL Sodium 137 (136-145) mmol/L Potassium 3.4 L (3.5-5.1) mmol/L Chloride 103 (98-107) mmol/L Carbon Dioxide 28 (21-32) mmol/L Anion Gap 6.0 (3-11) BUN 6 L (7-18) mg/dl Creatinine 0.72 (0.6-1.4) mg/dl Est Cr Clr Drug Dosing 139.2 ml/min Est GFR ( Amer) 128.7 ml/min Est GFR (Non-Af Amer) 111.1 ml/min BUN/Creatinine Ratio 7.7 L (10-20) Glucose 140 H (70-99) mg/dl POC Glucose 134 H (70-99) mg/dl Estimat Average Glucose mg/dl Hemoglobin A1c (4.5-5.6) % Calcium 9.1 (8.5-10.1) mg/dl Phosphorus 2.6 (2.5-4.9) mg/dl Magnesium 1.8 (1.8-2.4) mg/dl Total Bilirubin 1.8 H D (0.2-1) mg/dl Direct Bilirubin 0.4 H (0-0.2) mg/dl AST 98 H (15-37) U/L ALT 93 H (12-78) U/L Alkaline Phosphatase 68 (45-117) U/L Troponin I (0-0.045) ng/ml Total Protein 6.2 L (6.4-8.2) gm/dl Albumin 2.8 L (3.4-5.0) gm/dl 02/26/21 02/26/21 02/26/21 Range/Units 20:09 16:38 13:01 WBC (4.8-10.8) K/uL RBC (4.7-6.1) M/uL Hgb (14.0-18.0) g/dL Hct (42-52) % MCV (80-100) fL MCH (25-34) pg MCHC (32-36) g/dL RDW Std Deviation (36.4-46.3) fL RDW Coeff of Gucci (11.5-14.5) % Plt Count (130-400) K/uL MPV (7.4-10.4) fL Immature Gran % (Auto) % Neut % (Auto) % Lymph % (Auto) % Ballard % (Auto) % Eos % (Auto) % Baso % (Auto) % Neut # (Auto) (1.4-6.5) K/uL Lymph # (Auto) (1.2-3.4) K/uL Ballard # (Auto) (0.11-0.59) K/uL Eos # (Auto) (0-0.5) K/uL Baso # (Auto) (0-0.2) K/uL Immature Gran # (Auto) (0.00-0.02) K/uL Sodium (136-145) mmol/L Potassium (3.5-5.1) mmol/L Chloride (98-107) mmol/L Carbon Dioxide (21-32) mmol/L Anion Gap (3-11) BUN (7-18) mg/dl Creatinine (0.6-1.4) mg/dl Est Cr Clr Drug Dosing ml/min Est GFR ( Amer) ml/min Est GFR (Non-Af Amer) ml/min BUN/Creatinine Ratio (10-20) Glucose (70-99) mg/dl POC Glucose 121 H 111 H 141 H (70-99) mg/dl Estimat Average Glucose mg/dl Hemoglobin A1c (4.5-5.6) % Calcium (8.5-10.1) mg/dl Phosphorus (2.5-4.9) mg/dl Magnesium (1.8-2.4) mg/dl Total Bilirubin (0.2-1) mg/dl Direct Bilirubin (0-0.2) mg/dl AST (15-37) U/L ALT (12-78) U/L Alkaline Phosphatase (45-117) U/L Troponin I (0-0.045) ng/ml Total Protein (6.4-8.2) gm/dl Albumin (3.4-5.0) gm/dl 02/26/21 02/26/21 02/26/21 Range/Units 11:46 08:30 08:30 WBC (4.8-10.8) K/uL RBC (4.7-6.1) M/uL Hgb (14.0-18.0) g/dL Hct (42-52) % MCV (80-100) fL MCH (25-34) pg MCHC (32-36) g/dL RDW Std Deviation (36.4-46.3) fL RDW Coeff of Gucci (11.5-14.5) % Plt Count (130-400) K/uL MPV (7.4-10.4) fL Immature Gran % (Auto) % Neut % (Auto) % Lymph % (Auto) % Ballard % (Auto) % Eos % (Auto) % Baso % (Auto) % Neut # (Auto) (1.4-6.5) K/uL Lymph # (Auto) (1.2-3.4) K/uL Ballard # (Auto) (0.11-0.59) K/uL Eos # (Auto) (0-0.5) K/uL Baso # (Auto) (0-0.2) K/uL Immature Gran # (Auto) (0.00-0.02) K/uL Sodium (136-145) mmol/L Potassium (3.5-5.1) mmol/L Chloride (98-107) mmol/L Carbon Dioxide (21-32) mmol/L Anion Gap (3-11) BUN (7-18) mg/dl Creatinine (0.6-1.4) mg/dl Est Cr Clr Drug Dosing ml/min Est GFR ( Amer) ml/min Est GFR (Non-Af Amer) ml/min BUN/Creatinine Ratio (10-20) Glucose (70-99) mg/dl POC Glucose 147 H (70-99) mg/dl Estimat Average Glucose 217 mg/dl Hemoglobin A1c 9.2 H (4.5-5.6) % Calcium (8.5-10.1) mg/dl Phosphorus (2.5-4.9) mg/dl Magnesium (1.8-2.4) mg/dl Total Bilirubin (0.2-1) mg/dl Direct Bilirubin (0-0.2) mg/dl AST (15-37) U/L ALT (12-78) U/L Alkaline Phosphatase (45-117) U/L Troponin I < 0.015 (0-0.045) ng/ml Total Protein (6.4-8.2) gm/dl Albumin (3.4-5.0) gm/dl 02/26/21 02/26/21 Range/Units 08:30 08:30 WBC 3.57 L (4.8-10.8) K/uL RBC 4.63 L (4.7-6.1) M/uL Hgb 15.4 (14.0-18.0) g/dL Hct 43.8 (42-52) % MCV 94.6 (80-100) fL MCH 33.3 (25-34) pg MCHC 35.2 (32-36) g/dL RDW Std Deviation 42.3 (36.4-46.3) fL RDW Coeff of Gucci 12.3 (11.5-14.5) % Plt Count 139 (130-400) K/uL MPV 9.0 (7.4-10.4) fL Immature Gran % (Auto) 0.0 % Neut % (Auto) 43.1 % Lymph % (Auto) 41.2 % Ballard % (Auto) 9.5 % Eos % (Auto) 5.6 % Baso % (Auto) 0.6 % Neut # (Auto) 1.54 (1.4-6.5) K/uL Lymph # (Auto) 1.47 (1.2-3.4) K/uL Ballard # (Auto) 0.34 (0.11-0.59) K/uL Eos # (Auto) 0.20 (0-0.5) K/uL Baso # (Auto) 0.02 (0-0.2) K/uL Immature Gran # (Auto) 0.00 (0.00-0.02) K/uL Sodium 141 (136-145) mmol/L Potassium 3.6 D (3.5-5.1) mmol/L Chloride 109 H (98-107) mmol/L Carbon Dioxide 24 (21-32) mmol/L Anion Gap 8.0 (3-11) BUN 6 L (7-18) mg/dl Creatinine 0.73 (0.6-1.4) mg/dl Est Cr Clr Drug Dosing 137.3 ml/min Est GFR ( Amer) 128.0 ml/min Est GFR (Non-Af Amer) 110.5 ml/min BUN/Creatinine Ratio 7.6 L (10-20) Glucose 156 H (70-99) mg/dl POC Glucose (70-99) mg/dl Estimat Average Glucose mg/dl Hemoglobin A1c (4.5-5.6) % Calcium 8.7 (8.5-10.1) mg/dl Phosphorus (2.5-4.9) mg/dl Magnesium 1.9 (1.8-2.4) mg/dl Total Bilirubin (0.2-1) mg/dl Direct Bilirubin (0-0.2) mg/dl AST (15-37) U/L ALT (12-78) U/L Alkaline Phosphatase (45-117) U/L Troponin I (0-0.045) ng/ml Total Protein (6.4-8.2) gm/dl Albumin (3.4-5.0) gm/dl Medications Administered Current Inpatient Medications Acetaminophen (Acetaminophen 325 Mg Tab) 650 mg PO TID PRN PRN Reason: Pain Stop: 03/29/21 08:24 Gabapentin (Gabapentin 600 Mg Tab) 600 mg PO Q8H [facility] Stop: 02/27/21 16:01 Last Admin: 02/26/21 23:17 Dose: 600 mg Documented by: Gabapentin (Gabapentin 600 Mg Tab) 600 mg PO Q12H [facility] Stop: 02/28/21 18:01 Gabapentin (Gabapentin 600 Mg Tab) 600 mg PO Q24H [facility] Stop: 03/01/21 18:01 Gabapentin (Gabapentin 100 Mg Cap) 200 mg PO QID PRN PRN Reason: pain Stop: 03/29/21 08:26 Heparin Sodium (Porcine) (Heparin Sod 5,000 Unit/0.5 Ml Vial) 5,000 units SQ Q8 [facility] Stop: 03/28/21 05:59 Last Admin: 02/27/21 05:52 Dose: Not Given Documented by: Thiamine HCl 100 mg/ Syringe 10 mls @ 2 mls/min IV QAM [facility] Stop: 03/28/21 03:14 Last Admin: 02/26/21 03:47 Dose: 2 mls/min Documented by: Folic Acid 1 mg/ Syringe 10 mls @ 5 mls/min IV QAM [facility] Stop: 03/28/21 03:14 Last Admin: 02/26/21 03:47 Dose: 5 mls/min Documented by: Lorazepam (Ativan) 1 mg in 2 mls @ 2 mls/min IV UD PRN; Protocol PRN Reason: EtOH Withdrawl AWSS Score 6,7 Stop: 03/28/21 03:03 Last Admin: 02/26/21 23:41 Dose: 2 mls/min Documented by: Lorazepam (Ativan) 2 mg in 4 mls @ 4 mls/min IV UD PRN; Protocol PRN Reason: EtOH Withdrawl AWSS Score 8,9 Stop: 03/28/21 03:03 Last Admin: 02/26/21 20:08 Dose: 4 mls/min Documented by: Lorazepam (Ativan) 3 mg in 6 mls @ 4 mls/min IV ONCE PRN; Protocol PRN Reason: EtOH Withdrawl AWSS Score >=10 Stop: 03/28/21 03:03 Insulin Aspart (Insulin Aspart 100 Units/Ml 3 Ml Pen) 0 units SC ACHS [facility] Stop: 03/28/21 07:29 Last Admin: 02/26/21 21:03 Dose: Not Given Documented by: Insulin Glargine (Insulin Glargine Solostar 100 Units/Ml 3 Ml Pen) 5 units SC BID [facility] Stop: 03/28/21 08:59 Last Admin: 02/26/21 20:17 Dose: 5 units Documented by: Lorazepam (Lorazepam 0.5 Mg Tab) 0.5 mg PO Q4H PRN PRN Reason: Anxiety, agitation Stop: 03/29/21 08:26 Multivitamins/Minerals (Cerovite Adv Formula Tab) 1 tab PO QAM [facility] Stop: 03/28/21 08:59 Last Admin: 02/26/21 10:08 Dose: 1 tab Documented by: Nitroglycerin (Nitroglycerin Sl 0.4 Mg/Tab Tab) 0.4 mg SL UD PRN PRN Reason: Chest Pain Stop: 03/28/21 03:03 Pantoprazole Sodium (Pantoprazole 40 Mg Tab) 40 mg PO QAM [facility] Stop: 03/28/21 08:59 Last Admin: 02/26/21 10:08 Dose: 40 mg Documented by: Paroxetine HCl (Paroxetine Hcl 20 Mg Tab) 20 mg PO QAM [facility] Stop: 03/28/21 08:59 Last Admin: 02/26/21 10:08 Dose: 20 mg Documented by: Sucralfate (Sucralfate 1 Gm/10 Ml Udc) 1 gm PO QID [facility] Stop: 03/29/21 08:59 (1) DM type 2 (diabetes mellitus, type 2) Diabetes mellitus complication status: with other specified complication Diabetes mellitus retirement insulin use: with terminal system operator use Qualified Code(s): E11.69 - Type 2 diabetes mellitus with other specified complication; Z79.4 - senior care (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
[2021-02-27] MEDS: INSULIN ASPART 100 UNITS/ML 3 ML PEN SC SCH ×4 (08:53→20:58)
[2021-02-27] MEDS: GABAPENTIN 600 MG TAB PO SCH ×2 (08:54→16:16)
[2021-02-27] MEDS: THIAMINE HCL 100 MG in SYRINGE 9 ML IV SCH (08:55)
[2021-02-27] MEDS: INSULIN GLARGINE SOLOSTAR 100 UNITS/ML 3 ML PEN SC SCH ×2 (08:55→20:58)
[2021-02-27] MEDS: FOLIC ACID 1 MG in SYRINGE 9.8 ML IV SCH (08:55)
[2021-02-27] MEDS: CEROVITE ADV FORMULA TAB PO SCH (08:55)
[2021-02-27] MEDS: PANTOprazole 40 MG TAB PO SCH (08:56)
[2021-02-27] MEDS: PARoxetine HCL 20 MG TAB PO SCH (08:56)
[2021-02-27] MEDS: SUCRALFATE 1 GM/10 ML UDC PO SCH ×4 (08:56→20:58)
[2021-02-27] MEDS ORDERED: MAGNESIUM SULFATE / D5W 1 GM/100 ML BAG IV ONE (09:30)
[2021-02-27] MEDS ORDERED: HYDROmorphone INJ 0.5 MG/0.5 ML SYR IV STA (14:04)
[2021-02-27] MEDS: LACTATED RINGER'S 1,000 ML IV SCH (16:15)
[2021-02-27] MEDS: HYDROmorphone INJ 0.5 MG/0.5 ML SYR IV PRN ×2 (18:08→20:57)
[2021-02-28] MEDS: HYDROmorphone INJ 0.5 MG/0.5 ML SYR IV PRN ×4 (00:18→09:30)
[2021-02-28] MEDS: LORazepam 0.5 MG TAB PO PRN ×2 (01:31→14:25)
[2021-02-28] MEDS: LACTATED RINGER'S 1,000 ML IV SCH ×3 (01:31→21:10)
[2021-02-28] MEDS: HEPARIN SOD 5,000 UNIT/0.5 ML VIAL SQ SCH ×3 (04:52→20:24)
[2021-02-28] MEDS: GABAPENTIN 600 MG TAB PO SCH ×2 (06:33→17:19)
[2021-02-28 07:11] LABS: Albumin Level 2.9 gm/dl (3.4-5.0); BUN Creatinine Ratio 4.8 (10-20); Calcium 9.2 mg/dl (8.5-10.1); Creatinine Clr Calc Pharmacy 143.2 ml/min; Est GFR (African American) 130.3 ml/min; Est GFR (Non-African American) 112.4 ml/min; Potassium 3.7 mmol/L (3.5-5.1)
[2021-02-28 07:13] LABS: Albumin Globulin Ratio 0.8 (0.9-2); Bilirubin,Total 1.3 mg/dl (0.2-1); Globulin 3.6 gm/dl (2.5-4.0); Phosphorus 2.5 mg/dl (2.5-4.9); Total Protein 6.5 gm/dl (6.4-8.2)
[2021-02-28] MEDS: INSULIN ASPART 100 UNITS/ML 3 ML PEN SC SCH ×4 (08:44→20:23)
[2021-02-28] MEDS: FOLIC ACID 1 MG in SYRINGE 9.8 ML IV SCH (08:44)
[2021-02-28] MEDS: THIAMINE HCL 100 MG in SYRINGE 9 ML IV SCH (08:45)
[2021-02-28] MEDS: INSULIN GLARGINE SOLOSTAR 100 UNITS/ML 3 ML PEN SC SCH ×2 (08:46→20:24)
[2021-02-28] MEDS: PARoxetine HCL 20 MG TAB PO SCH (08:47)
[2021-02-28] MEDS: CEROVITE ADV FORMULA TAB PO SCH (08:47)
[2021-02-28] MEDS: PANTOprazole 40 MG TAB PO SCH (08:47)
[2021-02-28] MEDS: SUCRALFATE 1 GM/10 ML UDC PO SCH ×4 (08:47→20:23)
--- NOTE | 2021-02-28 16:02 | Hospitalist Progress Note ---
Date of Service February 28, 2021 Assessment & Plan (1) Chronic pancreatitis: (2) Acute hyperglycemia: (3) Elevated LFTs: (4) Alcohol withdrawal: (5) DM type 2 (diabetes mellitus, type 2): Plan: This 45-year-old male presents with abdominal pain and alcoholism. 1. Abdominal pain mostly from alcoholism, alcoholic gastritis. At this time, lipase negative. CT of the abdomen and pelvis did not show any pancreatitis. We will continue his home Protonix Advanced diet, pt tolerating Abdominal pain better controlled IV pain meds prn 2. Alcoholism ongoing, recurrent admission for alcoholism. The patient has been in alcohol rehab in the past. We will place him on IV thiamine, IV folic acid, multivitamins and place him on gabapentin alcohol protocol and IV Ativan p.r.n. per protocol and monitor in the med tele. Clinically improved, tremor improved 3. Diabetes, noncompliance with medications. Current Hgb A1c 9.2% We will place him on Lantus insulin sliding scale and advised the patient to be compliant. Says he was previous on Metformin, which gave him abdominal discomfort 4. Chest pain. Coming from abdomen? ekg and troponin negative. repeat ekg unremarkable denies any more chest pain 5. Depression. Continue his paroxetine 6. Hypokalemia. We will replace. 7. Elevated LFTs. We will follow repeat labs. DVT prophylaxis. Heparin subcu. DISPOSITION: Discharge home when clinically stable. full code. Admission and Anticipated Discharge Date Admission Date: February 26, 2021 Subjective Patient seen in follow-up for abdominal pain, alcohol withdrawal Currently laying in bed, appears in no acute distress Abdominal pain much better controlled, also tremor improved Denies fevers chills chest pain or shortness of breath Review of Systems Constitutional: no fever and no chills Respiratory: no cough and no dyspnea Cardiovascular: no chest pain and no palpitations Gastrointestinal: no abdominal pain, no nausea and no vomiting Physical Exam Physical Exam: GENERAL: The patient is of moderate build, not in acute distress. HEENT: NC/ AT, Pupils equal, round and reactive to light. Oral mucosa moist. NECK: No JVD or neck masses. HEART: S1 and S2 heard. Regular rate and rhythm. No murmur, no gallop. RESPIRATORY: Normal AP diameter. No accessory muscle use. No wheezing, no crackles. ABDOMEN: Soft, bowel sounds present. Diffuse tenderness, mild guarding, no rigidity, no distention. NEURO: Alert and oriented x3, speech fluent, no facial asymmetry, moves extremities EXTREMITIES: No edema, no erythema. Results & Data Results & Data ([facility]) Vital Signs (Past 12 Hours) Vital Signs Temp Pulse Pulse Resp BP Pulse Ox 02/28/21 15:09 36.8 C 77 16 100/63 96 02/28/21 11:06 36.7 C 86 18 116/72 96 02/28/21 09:14 74 02/28/21 06:55 36.7 C 79 20 129/86 97 Laboratory Results 02/28/21 02/28/21 02/28/21 Range/Units 11:15 07:28 06:22 Sodium 135 L (136-145) mmol/L Potassium 3.7 (3.5-5.1) mmol/L Chloride 102 (98-107) mmol/L Carbon Dioxide 30 (21-32) mmol/L Anion Gap 3.0 (3-11) BUN 3 L (7-18) mg/dl Creatinine 0.70 (0.6-1.4) mg/dl Est Cr Clr Drug Dosing 143.2 ml/min Est GFR ( Amer) 130.3 ml/min Est GFR (Non-Af Amer) 112.4 ml/min BUN/Creatinine Ratio 4.8 L (10-20) Glucose 173 H (70-99) mg/dl POC Glucose 158 H 164 H (70-99) mg/dl Calcium 9.2 (8.5-10.1) mg/dl Phosphorus 2.5 (2.5-4.9) mg/dl Magnesium 2.0 (1.8-2.4) mg/dl Total Bilirubin 1.3 H (0.2-1) mg/dl AST 91 H (15-37) U/L ALT 87 H (12-78) U/L Alkaline Phosphatase 73 (45-117) U/L Total Protein 6.5 (6.4-8.2) gm/dl Albumin 2.9 L (3.4-5.0) gm/dl Globulin 3.6 (2.5-4.0) gm/dl Albumin/Globulin Ratio 0.8 L (0.9-2) 02/27/21 02/27/21 Range/Units 20:28 17:03 Sodium (136-145) mmol/L Potassium (3.5-5.1) mmol/L Chloride (98-107) mmol/L Carbon Dioxide (21-32) mmol/L Anion Gap (3-11) BUN (7-18) mg/dl Creatinine (0.6-1.4) mg/dl Est Cr Clr Drug Dosing ml/min Est GFR ( Amer) ml/min Est GFR (Non-Af Amer) ml/min BUN/Creatinine Ratio (10-20) Glucose (70-99) mg/dl POC Glucose 140 H 176 H (70-99) mg/dl Calcium (8.5-10.1) mg/dl Phosphorus (2.5-4.9) mg/dl Magnesium (1.8-2.4) mg/dl Total Bilirubin (0.2-1) mg/dl AST (15-37) U/L ALT (12-78) U/L Alkaline Phosphatase (45-117) U/L Total Protein (6.4-8.2) gm/dl Albumin (3.4-5.0) gm/dl Globulin (2.5-4.0) gm/dl Albumin/Globulin Ratio (0.9-2) Medications Administered Current Inpatient Medications Acetaminophen (Acetaminophen 325 Mg Tab) 650 mg PO TID PRN PRN Reason: Pain Stop: 03/29/21 08:24 Gabapentin (Gabapentin 600 Mg Tab) 600 mg PO Q24H [facility] Stop: 03/01/21 18:01 Gabapentin (Gabapentin 100 Mg Cap) 200 mg PO QID PRN PRN Reason: pain Stop: 03/29/21 08:26 Last Admin: 02/28/21 08:47 Dose: 200 mg Documented by: Heparin Sodium (Porcine) (Heparin Sod 5,000 Unit/0.5 Ml Vial) 5,000 units SQ Q8 [facility] Stop: 03/28/21 05:59 Last Admin: 03/01/21 05:30 Dose: Not Given Documented by: Hydromorphone HCl (Hydromorphone Inj 0.5 Mg/0.5 Ml Syr) 0.25 mg IV Q3H PRN PRN Reason: Pain Stop: 03/13/21 15:08 Last Admin: 02/28/21 09:30 Dose: 0.25 mg Documented by: Thiamine HCl 100 mg/ Syringe 10 mls @ 2 mls/min IV QAM [facility] Stop: 03/28/21 03:14 Last Admin: 03/01/21 07:55 Dose: 2 mls/min Documented by: Folic Acid 1 mg/ Syringe 10 mls @ 5 mls/min IV QAM [facility] Stop: 03/28/21 03:14 Last Admin: 03/01/21 07:56 Dose: 5 mls/min Documented by: Lorazepam (Ativan) 1 mg in 2 mls @ 2 mls/min IV UD PRN; Protocol PRN Reason: EtOH Withdrawl AWSS Score 6,7 Stop: 03/28/21 03:03 Last Admin: 02/26/21 23:41 Dose: 2 mls/min Documented by: Lorazepam (Ativan) 2 mg in 4 mls @ 4 mls/min IV UD PRN; Protocol PRN Reason: EtOH Withdrawl AWSS Score 8,9 Stop: 03/28/21 03:03 Last Admin: 02/26/21 20:08 Dose: 4 mls/min Documented by: Lorazepam (Ativan) 3 mg in 6 mls @ 4 mls/min IV ONCE PRN; Protocol PRN Reason: EtOH Withdrawl AWSS Score >=10 Stop: 03/28/21 03:03 Lactated Ringer's (Lr) 1,000 mls @ 100 mls/hr IV .Q10H [facility] Stop: 03/29/21 15:14 Last Admin: 03/01/21 07:56 Dose: 100 mls/hr Documented by: Insulin Aspart (Insulin Aspart 100 Units/Ml 3 Ml Pen) 0 units SC ACHS [facility] Stop: 03/28/21 07:29 Last Admin: 03/01/21 12:12 Dose: 4 units Documented by: Insulin Glargine (Insulin Glargine Solostar 100 Units/Ml 3 Ml Pen) 5 units SC BID [facility] Stop: 03/28/21 08:59 Last Admin: 03/01/21 07:54 Dose: 5 units Documented by: Lorazepam (Lorazepam 0.5 Mg Tab) 0.5 mg PO Q4H PRN PRN Reason: Anxiety, agitation Stop: 03/29/21 08:26 Last Admin: 02/28/21 14:25 Dose: 0.5 mg Documented by: Multivitamins/Minerals (Cerovite Adv Formula Tab) 1 tab PO [facility] Stop: 03/28/21 08:59 Last Admin: 03/01/21 07:54 Dose: 1 tab Documented by: Nitroglycerin (Nitroglycerin Sl 0.4 Mg/Tab Tab) 0.4 mg SL UD PRN PRN Reason: Chest Pain Stop: 03/28/21 03:03 Oxycodone HCl (Oxycodone Hcl Ir 5 Mg Tab (Immediate Release)) 2.5 mg PO Q4H PRN PRN Reason: pain Stop: 03/14/21 17:14 Last Admin: 02/28/21 20:23 Dose: 2.5 mg Documented by: Pantoprazole Sodium (Pantoprazole 40 Mg Tab) 40 mg PO [facility] Stop: 03/28/21 08:59 Last Admin: 03/01/21 07:54 Dose: 40 mg Documented by: Paroxetine HCl (Paroxetine Hcl 20 Mg Tab) 20 mg PO [facility] Stop: 03/28/21 08:59 Last Admin: 03/01/21 07:54 Dose: 20 mg Documented by: Sucralfate (Sucralfate 1 Gm/10 Ml Udc) 1 gm PO QID [facility] Stop: 03/29/21 08:59 Last Admin: 03/01/21 12:12 Dose: 1 gm Documented by: (1) DM type 2 (diabetes mellitus, type 2) Diabetes mellitus complication status: with other specified complication Diabetes mellitus terminal press operator insulin use: with [facility] use Qualified Code(s): E11.69 - Type 2 diabetes mellitus with other specified complication; Z79.4 - retirement (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
[2021-02-28] MEDS ORDERED: oxyCODONE HCL IR 5 MG TAB (IMMEDIATE RELEASE) PO PRN (17:15)
[2021-03-01] MEDS: HEPARIN SOD 5,000 UNIT/0.5 ML VIAL SQ SCH (05:30)
[2021-03-01] MEDS: CEROVITE ADV FORMULA TAB PO SCH (07:54)
[2021-03-01] MEDS: PARoxetine HCL 20 MG TAB PO SCH (07:54)
[2021-03-01] MEDS: SUCRALFATE 1 GM/10 ML UDC PO SCH ×2 (07:54→12:12)
[2021-03-01] MEDS: INSULIN GLARGINE SOLOSTAR 100 UNITS/ML 3 ML PEN SC SCH (07:54)
[2021-03-01] MEDS: PANTOprazole 40 MG TAB PO SCH (07:54)
[2021-03-01] MEDS: THIAMINE HCL 100 MG in SYRINGE 9 ML IV SCH (07:55)
[2021-03-01] MEDS: INSULIN ASPART 100 UNITS/ML 3 ML PEN SC SCH ×2 (07:55→12:12)
[2021-03-01] MEDS: FOLIC ACID 1 MG in SYRINGE 9.8 ML IV SCH (07:56)
[2021-03-01] MEDS: LACTATED RINGER'S 1,000 ML IV SCH (07:56)
[2021-03-01 10:59] VITALS: BP 109/69; PULSE 79; TEMP 97.5; O2SAT 96
--- NOTE | 2021-03-01 13:22 | Hospitalist Progress Note ---
Date of Service March 01, 2021 Assessment & Plan (1) Chronic pancreatitis: (2) Acute hyperglycemia: (3) Elevated LFTs: (4) Alcohol withdrawal: (5) DM type 2 (diabetes mellitus, type 2): Plan: This 45-year-old male presents with abdominal pain and alcoholism. 1. Abdominal pain mostly from alcoholism, alcoholic gastritis. At this time, lipase negative. CT of the abdomen and pelvis did not show any pancreatitis. We will continue his home Protonix Advanced diet, pt tolerating Abdominal pain better controlled Clinically much improved, inquiring by going home 2. Alcoholism ongoing, recurrent admission for alcoholism. The patient has been in alcohol rehab in the past. We will place him on IV thiamine, IV folic acid, multivitamins and place him on gabapentin alcohol protocol and IV Ativan p.r.n. per protocol and monitor in the med tele. Clinically improved, tremor resolved 3. Diabetes, noncompliance with medications. Current Hgb A1c 9.2% We will place him on Lantus insulin sliding scale and advised the patient to be compliant. Says he was previously on Metformin, which gave him abdominal discomfort Reports he discussed other medication with his PCP, will have the patient follow-up closely with PCP, on March 05 4. Chest pain. Coming from abdomen? ekg and troponin negative. repeat ekg unremarkable denies any more chest pain 5. Depression. Continue his paroxetine 6. Hypokalemia. We will replace. 7. Elevated LFTs. We will follow repeat labs. DVT prophylaxis. Heparin subcu. DISPOSITION: Discharge home when clinically stable. full code. Admission and Anticipated Discharge Date Admission Date: February 26, 2021 Subjective Patient seen in follow-up for abdominal pain, alcohol withdrawal Currently laying in bed, appears in no acute distress Pt says his abdominal pain is much better controlled now, and he tolerates diet No more tremor Denies fevers chills chest pain or shortness of breath Inquiring about going home Review of Systems Constitutional: no fever and no chills Respiratory: no cough and no dyspnea Cardiovascular: no chest pain and no palpitations Gastrointestinal: no abdominal pain, no nausea and no vomiting Physical Exam Physical Exam: GENERAL: The patient is of moderate build, not in acute distress. HEENT: NC/ AT, Pupils equal, round and reactive to light. Oral mucosa moist. NECK: No JVD or neck masses. HEART: S1 and S2 heard. Regular rate and rhythm. No murmur, no gallop. RESPIRATORY: Normal AP diameter. No accessory muscle use. No wheezing, no crackles. ABDOMEN: Soft, bowel sounds present. Diffuse tenderness, mild guarding, no rigidity, no distention. NEURO: Alert and oriented x3, speech fluent, no facial asymmetry, moves extremities EXTREMITIES: No edema, no erythema. Results & Data Results & Data ([facility]) Vital Signs (Past 12 Hours) Vital Signs Temp Pulse Resp BP Pulse Ox 03/01/21 10:59 36.4 C L 79 18 109/69 96 03/01/21 06:47 36.6 C 74 20 114/74 97 03/01/21 03:25 36.6 C 77 20 115/75 98 Medications Administered Current Inpatient Medications Acetaminophen (Acetaminophen 325 Mg Tab) 650 mg PO TID PRN PRN Reason: Pain Stop: 03/29/21 08:24 Gabapentin (Gabapentin 600 Mg Tab) 600 mg PO Q24H RAMOS Stop: 03/01/21 18:01 Gabapentin (Gabapentin 100 Mg Cap) 200 mg PO QID PRN PRN Reason: pain Stop: 03/29/21 08:26 Last Admin: 02/28/21 08:47 Dose: 200 mg Documented by: Heparin Sodium (Porcine) (Heparin Sod 5,000 Unit/0.5 Ml Vial) 5,000 units SQ Q8 RAMOS Stop: 03/28/21 05:59 Last Admin: 03/01/21 05:30 Dose: Not Given Documented by: Hydromorphone HCl (Hydromorphone Inj 0.5 Mg/0.5 Ml Syr) 0.25 mg IV Q3H PRN PRN Reason: Pain Stop: 03/13/21 15:08 Last Admin: 02/28/21 09:30 Dose: 0.25 mg Documented by: Thiamine HCl 100 mg/ Syringe 10 mls @ 2 mls/min IV QAM RAMOS Stop: 03/28/21 03:14 Last Admin: 03/01/21 07:55 Dose: 2 mls/min Documented by: Folic Acid 1 mg/ Syringe 10 mls @ 5 mls/min IV QAM RAMOS Stop: 03/28/21 03:14 Last Admin: 03/01/21 07:56 Dose: 5 mls/min Documented by: Lorazepam (Ativan) 1 mg in 2 mls @ 2 mls/min IV UD PRN; Protocol PRN Reason: EtOH Withdrawl AWSS Score 6,7 Stop: 03/28/21 03:03 Last Admin: 02/26/21 23:41 Dose: 2 mls/min Documented by: Lorazepam (Ativan) 2 mg in 4 mls @ 4 mls/min IV UD PRN; Protocol PRN Reason: EtOH Withdrawl AWSS Score 8,9 Stop: 03/28/21 03:03 Last Admin: 02/26/21 20:08 Dose: 4 mls/min Documented by: Lorazepam (Ativan) 3 mg in 6 mls @ 4 mls/min IV ONCE PRN; Protocol PRN Reason: EtOH Withdrawl AWSS Score >=10 Stop: 03/28/21 03:03 Lactated Ringer's (Lr) 1,000 mls @ 100 mls/hr IV .Q10H [facility] Stop: 03/29/21 15:14 Last Admin: 03/01/21 07:56 Dose: 100 mls/hr Documented by: Insulin Aspart (Insulin Aspart 100 Units/Ml 3 Ml Pen) 0 units SC ACHS [facility] Stop: 03/28/21 07:29 Last Admin: 03/01/21 12:12 Dose: 4 units Documented by: Insulin Glargine (Insulin Glargine Solostar 100 Units/Ml 3 Ml Pen) 5 units SC BID [facility] Stop: 03/28/21 08:59 Last Admin: 03/01/21 07:54 Dose: 5 units Documented by: Lorazepam (Lorazepam 0.5 Mg Tab) 0.5 mg PO Q4H PRN PRN Reason: Anxiety, agitation Stop: 03/29/21 08:26 Last Admin: 02/28/21 14:25 Dose: 0.5 mg Documented by: Multivitamins/Minerals (Cerovite Adv Formula Tab) 1 tab PO QAM [facility] Stop: 03/28/21 08:59 Last Admin: 03/01/21 07:54 Dose: 1 tab Documented by: Nitroglycerin (Nitroglycerin Sl 0.4 Mg/Tab Tab) 0.4 mg SL UD PRN PRN Reason: Chest Pain Stop: 03/28/21 03:03 Oxycodone HCl (Oxycodone Hcl Ir 5 Mg Tab (Immediate Release)) 2.5 mg PO Q4H PRN PRN Reason: pain Stop: 03/14/21 17:14 Last Admin: 02/28/21 20:23 Dose: 2.5 mg Documented by: Pantoprazole Sodium (Pantoprazole 40 Mg Tab) 40 mg PO QAM [facility] Stop: 03/28/21 08:59 Last Admin: 03/01/21 07:54 Dose: 40 mg Documented by: Paroxetine HCl (Paroxetine Hcl 20 Mg Tab) [facility] Stop: 03/28/21 08:59 Last Admin: 03/01/21 07:54 Dose: 20 mg Documented by: Sucralfate (Sucralfate 1 Gm/10 Ml Udc) 1 gm PO QID [facility] Stop: 03/29/21 08:59 Last Admin: 03/01/21 12:12 Dose: 1 gm Documented by: (1) DM type 2 (diabetes mellitus, type 2) Diabetes mellitus complication status: with other specified complication Diabetes mellitus halfway insulin use: with long term care pharmacist use Qualified Code(s): E11.69 - Type 2 diabetes mellitus with other specified complication; Z79.4 - correction (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
--- NOTE | 2021-03-01 13:27 | Discharge Summary ---
Date of Service March 01, 2021 Admission HPI Per Admitting Provider This 45-year-old male with past medical history significant for ADHD, mood disorder, history of type 2 diabetes, noncompliance with his medications, GERD, Renae's esophagus, alcoholic pancreatitis, recurrent admissions for alcoholism, history of PE as per records, not on anticoagulation, history of chronic pain, history of narcotic abuse as per records, terminated medication agreement, history of signing out against medical advice because not given pain medication. History of DKA. The patient comes because of abdominal pain. The patient is still drinking 8 beers every day. He states since yesterday he is feldman ving severe abdominal pain radiating to the back, associated with nausea, vomiting, some pain coming to the chest sometimes. Denies any diarrhea or constipation. Denies any bloody stools or black stools. Normal bladder movements. No fever, no chills. No cough. no shortness of breath, no headache, no blurred visions, no earache, no runny nose, no sore throat, no cough, no swelling in the legs. Currently resting comfortably, hemodynamically stable, and asking for pain medication. His alcohol level is 356. His glucose level was 301. The patient states since he is only taking paroxetine and Protonix at home currently and he says he is taking new medication for diabetes for the last 2 days. Per [facility] notes he was on glimepiride for a long time and seems he was not taking it. Admission Exam Per Admitting Provider GENERAL: The patient is of moderate build, not in acute distress. VITAL SIGNS: Temperature 36.6, pulse 91, respiratory rate 16, blood pressure 125/86, oxygen 97% on room air. HEENT: Pupils equal, round and reactive to light. Oral mucosa moist. NECK: No JVD or neck masses. HEART: S1 and S2 heard. Regular rate and rhythm. No murmur, no gallop. RESPIRATORY SYSTEM: Normal AP diameter. No accessory muscle use. No wheezing, no crackles. ABDOMEN: Soft, bowel sounds present. Diffuse tenderness, mild guarding, no rigidity, no distention. CENTRAL NERVOUS SYSTEM: Cranial nerves II-XII grossly intact, nonfocal. EXTREMITIES: No edema, no erythema. Principal Diagnosis Alcohol use, alcohol withdrawal Gastritis, chronic pancreatitis Abdominal pain, secondary to above Discharge Exam GENERAL: The patient is of moderate build, not in acute distress. HEENT: NC/ AT, Pupils equal, round and reactive to light. Oral mucosa moist. NECK: No JVD or neck masses. HEART: S1 and S2 heard. Regular rate and rhythm. No murmur, no gallop. RESPIRATORY: Normal AP diameter. No accessory muscle use. No wheezing, no crackles. ABDOMEN: Soft, bowel sounds present. Diffuse tenderness, mild guarding, no rigidity, no distention. NEURO: Alert and oriented x3, speech fluent, no facial asymmetry, moves extremities EXTREMITIES: No edema, no erythema. Discharge Data Allergies Allergy/AdvReac Type Severity Reaction Status Date / Time No Known Allergies Allergy Verified 02/26/21 00:14 Consultations 02/26/21 00:57 ED Decision to Admit Stat Ordered Studies 02/25/21 22:51 CT abd pelvis IV con only Urgent IMPRESSION: 1. Near complete resolution of peripancreatic infiltration shown on prior CT. No definite acute findings on this exam. Evidence for chronic pancreatitis. No peripancreatic fluid collection. 2. Hepatic steatosis. 3. Distended bladder. Diabetes Follow up Diabetes Follow-up Needed for HgbA1c >9% Hospital Course (1) Chronic pancreatitis: (2) Acute hyperglycemia: (3) Elevated LFTs: (4) Alcohol withdrawal: (5) DM type 2 (diabetes mellitus, type 2): This 45-year-old male presents with abdominal pain and alcoholism. 1. Abdominal pain mostly from alcoholism, alcoholic gastritis. At this time, lipase negative. CT of the abdomen and pelvis did not show any pancreatitis. We will continue his home Protonix Advanced diet, pt tolerating Abdominal pain better controlled Clinically much improved, inquiring by going home 2. Alcoholism ongoing, recurrent admission for alcoholism. The patient has been in alcohol rehab in the past. We will place him on IV thiamine, IV folic acid, multivitamins and place him on gabapentin alcohol protocol and IV Ativan p.r.n. per protocol and monitor in the med tele. Clinically improved, tremor resolved 3. Diabetes, noncompliance with medications. Current Hgb A1c 9.2% We will place him on Lantus insulin sliding scale and advised the patient to be compliant. Says he was previously on Metformin, which gave him abdominal discomfort Reports he discussed other medication with his PCP, will have the patient follow-up closely with PCP, on March 05 4. Chest pain. Coming from abdomen? ekg and troponin negative. repeat ekg unremarkable denies any more chest pain 5. Depression. Continue his paroxetine 6. Hypokalemia. We will replace. 7. Elevated LFTs. We will follow repeat labs. DVT prophylaxis. Heparin subcu. DISPOSITION: Discharge home when clinically stable. full code. Total Time Total Time Spent Total Time Spent (In Minutes): 35 Discharge Plan Discharge Items Patient Disposition: Home - Self-Care Reason For Visit: ABDOMINAL PAIN Discharge Diagnosis: Alcohol use, alcohol withdrawal Gastritis, chronic pancreatitis Abdominal pain, secondary to above Condition on Discharge: Fair Activity: Per Instructions section Non-emergency contact: Primary Care Provider Call non-emergency contact if: you have any medication questions and your symptoms worsen Follow-up/Referrals: Dhiraj Myers DO [Primary Care Provider] - (Date & Time 03/05/2021 1:40 PM Provider Dhiraj Myers DO [facility] ) Diet: Carb Consistent or DM2 and Low Fat Addtl Attending Provider Instructions: Follow up with your primary care doctor, the appointment was scheduled for you for March 05, 2021. It is important that you completely abstain from alcohol. Continue taking pantoprazole daily. Use Carafate up to 4 times a day before meals. Recommend taking vitamins : folic acid, thiamine daily. Avoid spicy, acidic or caffeinated drinks/foods and try to stick to a low-fat diet. Your diabetes is not well controlled at this time. It is crucial that you talk to your family physician about your diabetes control. Pending Studies at Discharge: No Stand-Alone Forms: [facility] Sm[facility] Cessation Medications and DC Order Prescriptions: New pantoprazole 40 mg Tablet,Delayed Release (Dr/Ec) 40 mg PO QAM Qty: 30 RF: 0 sucralfate 100 mg/mL Suspension 1 g PO QID Qty: 200 RF: 0 thiamine HCl (vitamin B1) 100 mg tablet 100 mg PO DAILY Qty: 30 RF: 0 folic acid 1 mg tablet 1,000 mcg PO DAILY Qty: 30 RF: 0 Continued pantoprazole 40 mg tablet,delayed release (DR/EC) 40 mg PO QAM RF: 0 paroxetine HCl 20 mg tablet 20 mg PO QAM RF: 0 Discharge Orders: Discharge Order (Routine); Ordered 03/01/21 Ordered By: Jerome Restrepo Admission Data Admit Date/Time: 02/26/21 02:07 Attending Provider: Jerome Restrepo Admit Provider: Jed Sousa Primary Care Provider: Dhiraj Myers Other Providers: Jed Sousa
[2021-03-01] MEDS ORDERED: GABAPENTIN 600 MG TAB PO SCH (18:00)
== END 2021-03-01 13:25 | disposition home or self-care (01) | DRG 392 ==
LOC: ED 22:29 → 2W 02-26 02:07

== ENCOUNTER 2021-03-20 22:31 | Inpatient (IN) ==
[2021-03-20] MEDS ORDERED: HYDROmorphone INJ 0.5 MG/0.5 ML SYR IV STA (22:33)
[2021-03-20] MEDS ORDERED: DROPERIDOL 5 MG/2 ML VIAL IV STA (22:33)
[2021-03-20] MEDS ORDERED: SODIUM CHLORIDE 0.9% 1000ML 1,000 ML IV STA (22:33)
[2021-03-20] MEDS ORDERED: diphenhydrAMINE 50 MG/ML VIAL IV STA (22:33)
[2021-03-20 22:50] LABS: Basophils # (auto) 0.02 K/uL (0-0.2); Basophils % (auto) 0.3 %; Eosinophils # (auto) 0.14 K/uL (0-0.5); Hemoglobin 16.4 g/dL (14.0-18.0); Immature Granulocytes # (auto) 0.01 K/uL (0.00-0.02); Immature Granulocytes % (auto) 0.1 %; Lymphocytes # (auto) 1.45 K/uL (1.2-3.4); Lymphocytes % (auto) 21.1 %; Mean Corpuscular Hemoglobin 33.6 pg (25-34); Mean Corpuscular Hgb Conc 36.4 g/dL (32-36); Mean Corpuscular Volume 92.2 fL (80-100); Mean Platelet Volume 9.3 fL (7.4-10.4); Monocytes # (auto) 0.72 K/uL (0.11-0.59); Monocytes % (auto) 10.5 %; Neutrophils # (auto) 4.52 K/uL (1.4-6.5); Platelet Count 154 K/uL (130-400); RDW Coefficient of Variation 12.2 % (11.5-14.5); RDW Standard Deviation 41.2 fL (36.4-46.3); Red Blood Count 4.88 M/uL (4.7-6.1); White Blood Count 6.86 K/uL (4.8-10.8)
[2021-03-20 23:03] LABS: Alanine Aminotransferase 69 U/L (12-78); Albumin Level 3.3 gm/dl (3.4-5.0); Amylase 44 U/L (25-115); Aspartate Aminotransferase 66 U/L (15-37); BUN Creatinine Ratio 7.6 (10-20); Blood Urea Nitrogen 7 mg/dl (7-18); Calcium 9.8 mg/dl (8.5-10.1); Carbon Dioxide 20 mmol/L (21-32); Chloride 98 mmol/L (98-107); Creatinine Clr Calc Pharmacy 110.7 ml/min; Est GFR (African American) 119.7 ml/min; Est GFR (Non-African American) 103.3 ml/min; Glucose 232 mg/dl (70-99); Lipase 269 U/L (73-393); Potassium 3.5 mmol/L (3.5-5.1); Sodium 131 mmol/L (136-145)
[2021-03-20 23:08] LABS: Albumin Globulin Ratio 0.8 (0.9-2); Alkaline Phosphatase 89 U/L (45-117); Bilirubin,Total 0.9 mg/dl (0.2-1); Globulin 4.3 gm/dl (2.5-4.0); Total Protein 7.6 gm/dl (6.4-8.2); Troponin I < 0.015 ng/ml (0-0.045)
[2021-03-20] MEDS ORDERED: LACTATED RINGER'S 1,000 ML IV ONE (23:24)
[2021-03-20] MEDS ORDERED: THIAMINE HCL 100 MG in SYRINGE 9 ML IV STA (23:33)
[2021-03-20] MEDS ORDERED: SODIUM CHLORIDE 0.9% 1000ML 1,000 ML IV ONE (23:36)
--- NOTE | 2021-03-20 23:40 | Emergency Department Note ---
History of Present Illness General Chief complaint: Abdominal Pain Stated complaint: UPPER ABDOMINAL PAIN Time Seen by Provider: 03/20/21 22:33 History of Present Illness Maximum Pain Intensity: 7 This 45-year-old presents to the ER complaining of pancreatitis Location: Upper abdomen Quality: Painful Severity: Moderate Duration: Today Timing: Today Context: Patient was concerned and came in Modifying factors: better with nothing; worse with activity Patient has been drinking alcohol again. Patient denies chest pain, vomiting, diarrhea, urinary symptoms, fevers. No Covid vaccine. Home Medications Medication Instructions Recorded Confirmed Type paroxetine HCl 20 mg tablet 20 mg PO QAM 12/20/19 03/20/21 History pantoprazole 40 mg tablet,delayed 40 mg PO QAM 01/18/20 03/20/21 History release folic acid 1 mg tablet 1,000 mcg PO DAILY #30 tab 03/01/21 03/20/21 Rx pantoprazole 40 mg tablet,delayed 40 mg PO QAM #30 tab 03/01/21 03/20/21 Rx release sucralfate 100 mg/mL oral 1 g PO QID #200 ml 03/01/21 03/20/21 Rx suspension thiamine HCl (vitamin B1) 100 mg 100 mg PO DAILY #30 tab 03/01/21 03/20/21 Rx tablet Allergies Allergy/AdvReac Type Severity Reaction Status Date / Time No Known Allergies Allergy Verified 03/20/21 23:27 Past Med/Surg History Medical History (Updated 03/20/21 @ 23:40 by Maryan Jo PA-C) Abdominal pain Acute hyperglycemia Alcohol abuse (Unknown) Alcohol abuse Renae's esophagus (Unknown) "per EGD 11/23/09 " On 05/31/11 09:06 Martinez Jose wrote "per EGD 11/23/09 " Chest pain Depression Depression DM type 2 (diabetes mellitus, type 2) Encounter for alcohol abuse counseling and surveillance Encounter for pre-operative examination Encounter for tobacco use cessation counseling H/O acute pancreatitis "recurrent" History of substance abuse Hyperglycemia Intentional drug overdose Lumbar degenerative disc disease Mood disorder Mood disorder Neuropathy Pancreatitis Panic disorder Pulmonary embolism Suicidal ideation Suicidal ideation Suicide attempt Surgical History H/O esophagogastroduodenoscopy "EGD 11/23/2009- mild gastritis, suspicious for gastroparesis, Z-line irregular EUS 02/04/2010- mild chronic pancreatitis, pronounced cholesterolosis of gallbladder, no biliary dilation or stones, probable gastroparesis EGD 10/31/2014- gastritis" S/P lumbar fusion L4-S1 2014 Family History Father Alcohol abuse Social History Smoking Status: Never smoker Tobacco Type: Smokeless Tobacco (Dip or Chew) Second Hand Exposure: No; Hx Alcohol Use: Yes Alcohol type: beer Hx Substance Use: No Preferred Language: German Communication Ability: Effective Physician Industrial Required: No Beliefs That Will Affect Care: None marital status: Current Living Situation: Parent Current Living Situation Comment: with mother Feels Safe at Home: Yes Safety Concerns: Feels Safe At This Time Assistive Devices: None Review of Systems A total of 10 systems reviewed and were otherwise negative Physical Exam Vital Signs Vital Signs - 24 hr 03/20/21 22:36 03/20/21 22:40 03/20/21 23:00 Temperature 36.1 C L Temperature Source Oral Pulse Rate 101 H 104 H Pulse Rate from SpO2 Sensor 105 H Respiratory Rate 18 14 Respiratory Effort / Characteristics Non-Labored Spontaneous Respiratory Depth Normal Respiratory Pattern Regular Blood Pressure 130/97 118/82 Blood Pressure Mean 108 94 Pulse Oximetry 98 98 95 Oxygen Delivery Method Room Air Room Air Room Air Sepsis Recent Fever Within 48 Hours No Sepsis New/Unexplained Change in Mental Status No Sepsis Action Taken by Nursing No Action Required 03/21/21 00:00 Temperature Temperature Source Pulse Rate 103 H Pulse Rate from SpO2 Sensor 102 H Respiratory Rate 18 Respiratory Effort / Characteristics Respiratory Depth Respiratory Pattern Blood Pressure 113/78 Blood Pressure Mean 89 Pulse Oximetry 97 Oxygen Delivery Method Room Air Sepsis Recent Fever Within 48 Hours Sepsis New/Unexplained Change in Mental Status Sepsis Action Taken by Nursing VITALS: Vitals are noted on the nurse's note and reviewed by myself. Vital signs stable. GENERAL: White male, in no acute distress, nondiaphoretic, well-developed well- nourished. SKIN: The skin was without rashes, erythema, edema, or bruising. There is no tenting of the skin. Capillary reflex less than 2 seconds. HEAD: Normocephalic atraumatic. EARS: External auditory canals clear, EYES: Pupils equal round and reactive to light and accommodation. Conjunctivae without injection, sclerae without icterus. Extraocular movements intact. NOSE: Patent, turbinates without inflammation or discharge. MOUTH: Mucous membranes moist. Pharynx without erythema or exudate. Uvula midline. Airway patent. Tongue does not deviate. NECK: Supple without nuchal rigidity. No lymphadenopathy. No thyromegaly. Cervical spine is nontender. No JVD. HEART: Regular rate and rhythm LUNGS: Clear to auscultation bilaterally without wheezes, rales or rhonchi. No retractions or accessory muscle use. ABDOMEN: Positive bowel sounds x 4. Normal tympanic percussion. Soft, tender to palpation epigastric region, without masses or organomegaly. Estrella sign negative. No guarding or rebound tenderness. No CVA tenderness MUSCULOSKELETAL: No muscle atrophy, erythema, or edema noted. NEURO: Patient was alert and oriented to person place and time. Normal sensation to light and sharp touch. No focal neurological deficits. Course Administered Medications Enoxaparin Sodium (Enoxaparin Inj 40 Mg/0.4 Ml Syr) 40 mg SQ QAM [facility] Stop: 04/20/21 08:59 Last Admin: 03/21/21 08:15 Dose: Not Given Documented by: [id number] Folic Acid (Folic Acid 1 Mg Tab) 1 mg PO DAILY [facility] Stop: 04/20/21 08:59 Last Admin: 03/21/21 08:16 Dose: 1 mg Documented by: [id number] Lorazepam (Ativan) 1 mg in 2 mls @ 2 mls/min IV UD PRN; Protocol PRN Reason: EtOH Withdrawl AWSS Score 6,7 Stop: 04/20/21 02:16 Last Admin: 03/21/21 14:52 Dose: 2 mls/min Documented by: [id number] Admin: 03/21/21 12:38 Dose: 2 mls/min Documented by: [id number] Lactated Ringer's (Lr) 1,000 mls @ 200 mls/hr IV .Q5H [facility] Stop: 03/22/21 07:14 Last Admin: 03/21/21 17:13 Dose: 200 mls/hr Documented by: [id number] Infusion: 03/21/21 16:52 Dose: 200 mls/hr Documented by: [id number] Admin: 03/21/21 11:52 Dose: 200 mls/hr Documented by: [id number] Infusion: 03/21/21 11:52 Dose: 200 mls/hr Documented by: [id number] Infusion: 03/21/21 08:00 Dose: 200 mls/hr Documented by: [id number] Admin: 03/21/21 07:39 Dose: 500 mls/hr Documented by: [id number] Famotidine 20 mg/ Syringe 5 mls @ 2.5 mls/min IV BID [facility] Stop: 04/20/21 08:59 Last Admin: 03/21/21 10:29 Dose: 2.5 mls/min Documented by: [id number] Insulin Glargine (Insulin Glargine Solostar 100 Units/Ml 3 Ml Pen) 5 units SC BID [facility] Stop: 04/20/21 08:59 Last Admin: 03/21/21 08:19 Dose: 5 units Documented by: [id number] Cosigned by: [id number] Morphine Sulfate (Morphine Sulfate 2 Mg/Ml Carp) 2 mg IV Q6H PRN PRN Reason: Pain Stop: 04/04/21 08:44 Last Admin: 03/21/21 16:17 Dose: 2 mg Documented by: [id number] Multivitamins (Multivitamin Tab) [facility] [place]: 04/20/21 08:59 Last Admin: 03/21/21 08:15 Dose: Not Given Documented by: [id number] Oxycodone HCl (Oxycodone Hcl Ir 5 Mg Tab (Immediate Release)) 5 mg PO Q4H PRN PRN Reason: Pain Stop: 04/03/21 23:40 Last Admin: 03/21/21 14:51 Dose: 5 mg Documented by: [id number] Admin: 03/21/21 10:29 Dose: 5 mg Documented by: [id number] Admin: 03/21/21 04:33 Dose: 5 mg Documented by: [id number] Pantoprazole Sodium (Pantoprazole 40 Mg Tab) [facility] [place]: 04/20/21 08:59 Last Admin: 03/21/21 08:16 Dose: 40 mg Documented by: [id number] Paroxetine HCl (Paroxetine Hcl 20 Mg Tab) 20 mg PO QAM [facility] Stop: 04/20/21 08:59 Last Admin: 03/21/21 08:16 Dose: 20 mg Documented by: [id number] Sucralfate (Sucralfate 1 Gm/10 Ml Udc) 1 gm PO QID [facility] Stop: 04/20/21 08:59 Last Admin: 03/21/21 12:41 Dose: Not Given Documented by: [id number] Admin: 03/21/21 08:16 Dose: 1 gm Documented by: [id number] Thiamine HCl (Thiamine Hcl 100 Mg Tab) 100 mg PO DAILY [facility] Stop: 04/20/21 08:59 Last Admin: 03/21/21 08:17 Dose: 100 mg Documented by: [id number] Discontinued Medications Diphenhydramine HCl (Diphenhydramine 50 Mg/Ml Vial) 25 mg IV NOW STA Stop: 03/20/21 22:34 Last Admin: 03/20/21 22:50 Dose: 25 mg Documented by: [id number] Droperidol (Droperidol 5 Mg/2 Ml Vial) 1.25 mg IV ONE STA Stop: 03/20/21 22:34 Last Admin: 03/20/21 22:51 Dose: 1.25 mg Documented by: [id number] Gabapentin (Gabapentin 600 Mg Tab) 1,200 mg PO NOW STA Stop: 03/21/21 00:01 Last Admin: 03/21/21 00:07 Dose: 1,200 mg Documented by: [id number] Gabapentin (Gabapentin 1200mg Alcohol Withdrawal Load) 1 ea PO NOW STA; Protocol Stop: 03/21/21 00:36 Last Admin: 03/21/21 03:13 Dose: Not Given Documented by: [id number] Gabapentin (Gabapentin 600 Mg Tab) 600 mg PO Q6H [facility] Stop: 03/21/21 12:01 Last Admin: 03/21/21 11:52 Dose: 600 mg Documented by: [id number] Admin: 03/21/21 05:35 Dose: 600 mg Documented by: [id number] Hydromorphone HCl (Hydromorphone Inj 0.5 Mg/0.5 Ml Syr) 0.5 mg IV NOW STA Stop: 03/20/21 22:34 Last Admin: 03/20/21 22:51 Dose: 0.5 mg Documented by: [id number] Sodium Chloride (Nss 1000ml) 1,000 mls @ 999 mls/hr IV .Q1H1M STA Stop: 03/20/21 23:33 Last Infusion: 03/20/21 23:55 Dose: 0 mls/hr Documented by: [id number] Admin: 03/20/21 22:53 Dose: 999 mls/hr Documented by: [id number] Thiamine HCl 100 mg/ Syringe 10 mls @ 2 mls/min IV NOW STA Stop: 03/20/21 23:37 Last Admin: 03/21/21 00:08 Dose: 2 mls/min Documented by: [id number] Lactated Ringer's (Lr) 1,000 mls @ 500 mls/hr IV .Q2H ONE Stop: 03/21/21 01:23 Last Infusion: 03/21/21 07:38 Dose: 0 mls/hr Documented by: [id number] Admin: 03/20/21 23:38 Dose: 500 mls/hr Documented by: [id number] Sodium Chloride (Nss 1000ml) 1,000 mls @ 999 mls/hr IV .Q1H1M ONE Stop: 03/21/21 00:36 Last Admin: 03/21/21 00:58 Dose: Not Given Documented by: [id number] Lactated Ringer's (Lr) 1,000 mls @ 500 mls/hr IV .Q2H ONE Stop: 03/21/21 03:39 Last Infusion: 03/21/21 04:56 Dose: 0 mls/hr Documented by: [id number] Admin: 03/21/21 02:30 Dose: 500 mls/hr Documented by: [id number] Lactated Ringer's (Lr) 1,000 mls @ 200 mls/hr IV .Q5H [facility] Stop: 04/20/21 03:29 Last Infusion: 03/21/21 07:42 Dose: 0 mls/hr Documented by: [id number] Admin: 03/21/21 04:34 Dose: 200 mls/hr Documented by: [id number] Lactated Ringer's (Lr) 1,000 mls @ 500 mls/hr IV .Q2H ONE Stop: 03/21/21 07:15 Last Infusion: 03/21/21 07:43 Dose: 0 mls/hr Documented by: [id number] Admin: 03/21/21 05:42 Dose: 500 mls/hr Documented by: [id number] Insulin Aspart (Insulin Aspart 100 Units/Ml 3 Ml Pen) 0 units SC Q6 [facility] Stop: 04/20/21 02:16 Last Admin: 03/21/21 12:47 Dose: 5 units Documented by: [id number] Cosigned by: [id number] Admin: 03/21/21 05:37 Dose: Not Given Documented by: [id number] Admin: 03/21/21 04:29 Dose: Not Given Documented by: [id number] Insulin Glargine (Insulin Glargine Solostar 100 Units/Ml 3 Ml Pen) 5 units SC NOW STA Stop: 03/21/21 00:36 Last Admin: 03/21/21 02:30 Dose: 5 units Documented by: [id number] Cosigned by: [id number] Ioversol (Optiray 320 100ml) 95 ml IV ONCE ONE Stop: 03/21/21 00:36 Last Admin: 03/21/21 00:35 Dose: 95 ml Documented by: [id number] Morphine Sulfate (Morphine Sulfate 2 Mg/Ml Carp) 1 mg IV Q6H PRN PRN Reason: Pain Stop: 04/04/21 08:44 Last Admin: 03/21/21 09:28 Dose: 1 mg Documented by: [id number] Medical Decision Making Medical Records Attestation: I reviewed the patient's medical records. Home Medications Current Medication List: was personally reviewed by me Laboratory Data Attestation: I reviewed the patient's lab results. Result diagrams: 03/21/21 04:11 03/21/21 04:11 Lab Results 03/20/21 03/20/21 03/20/21 Range/Units 22:39 22:39 22:39 WBC 6.86 (4.8-10.8) K/uL RBC 4.88 (4.7-6.1) M/uL Hgb 16.4 (14.0-18.0) g/dL Hct 45.0 (42-52) % MCV 92.2 (80-100) fL MCH 33.6 (25-34) pg MCHC 36.4 H (32-36) g/dL RDW Std Deviation 41.2 (36.4-46.3) fL RDW Coeff of Gucci 12.2 (11.5-14.5) % Plt Count 154 (130-400) K/uL MPV 9.3 (7.4-10.4) fL Immature Gran % (Auto) 0.1 % Neut % (Auto) 66.0 % Lymph % (Auto) 21.1 % Garrard % (Auto) 10.5 % Eos % (Auto) 2.0 % Baso % (Auto) 0.3 % Neut # (Auto) 4.52 (1.4-6.5) K/uL Lymph # (Auto) 1.45 (1.2-3.4) K/uL Garrard # (Auto) 0.72 H (0.11-0.59) K/uL Eos # (Auto) 0.14 (0-0.5) K/uL Baso # (Auto) 0.02 (0-0.2) K/uL Immature Gran # (Auto) 0.01 (0.00-0.02) K/uL PT 10.4 (9.0-12.0) Seconds INR 1.0 (0.9-1.1) Sodium 131 L (136-145) mmol/L Potassium 3.5 (3.5-5.1) mmol/L Chloride 98 (98-107) mmol/L Carbon Dioxide 20 L (21-32) mmol/L Anion Gap 13.0 H (3-11) BUN 7 (7-18) mg/dl Creatinine 0.86 (0.6-1.4) mg/dl Est Cr Clr Drug Dosing 110.7 ml/min Est GFR ( Amer) 119.7 ml/min Est GFR (Non-Af Amer) 103.3 ml/min BUN/Creatinine Ratio 7.6 L (10-20) Glucose 232 H (70-99) mg/dl Lactate (0.4-2.0) mmol/L Calcium 9.8 (8.5-10.1) mg/dl Magnesium 2.0 (1.8-2.4) mg/dl Total Bilirubin 0.9 (0.2-1) mg/dl AST 66 H (15-37) U/L ALT 69 (12-78) U/L Alkaline Phosphatase 89 (45-117) U/L Troponin I < 0.015 (0-0.045) ng/ml Total Protein 7.6 (6.4-8.2) gm/dl Albumin 3.3 L (3.4-5.0) gm/dl Globulin 4.3 H (2.5-4.0) gm/dl Albumin/Globulin Ratio 0.8 L (0.9-2) Amylase 44 (25-115) U/L Lipase 269 (73-393) U/L Procalcitonin (0-0.5) ng/ml TSH 1.470 (0.300-4.500) uIu/ml Urine Color Urine Appearance (Clear) Urine pH (4.5-7.5) Ur Specific [place] (1.000-1.030) Urine Protein (Negative) Urine Glucose (UA) (Negative) Urine Ketones (Negative) Urine Blood (Negative) Urine Nitrite (Negative) Urine Bilirubin (Negative) Urine Urobilinogen (Negative) Ur Leukocyte Esterase (Negative) Urine Opiates Screen (Neg) Ur Methadone, Qual (Neg) Urine Barbiturates (Neg) Ur Phencyclidine (PCP) (Neg) U Amphetamin/Meth Scrn (Neg) MDMA (Ecstasy) Screen (Neg) U Benzodiazepines Scrn (Neg) Ur Cocaine Metabolite (Neg) U Marijuana (THC) Screen (Neg) Ethyl Alcohol mg/dL (0-3) mg/dl COVID-19 Eval Order SARS-CoV-2 (PCR) (Negative) 03/20/21 03/20/21 03/20/21 Range/Units 22:52 22:52 22:53 WBC (4.8-10.8) K/uL RBC (4.7-6.1) M/uL Hgb (14.0-18.0) g/dL Hct (42-52) % MCV (80-100) fL MCH (25-34) pg MCHC (32-36) g/dL RDW Std Deviation (36.4-46.3) fL RDW Coeff of Gucci (11.5-14.5) % Plt Count (130-400) K/uL MPV (7.4-10.4) fL Immature Gran % (Auto) % Neut % (Auto) % Lymph % (Auto) % Garrard % (Auto) % Eos % (Auto) % Baso % (Auto) % Neut # (Auto) (1.4-6.5) K/uL Lymph # (Auto) (1.2-3.4) K/uL Garrard # (Auto) (0.11-0.59) K/uL Eos # (Auto) (0-0.5) K/uL Baso # (Auto) (0-0.2) K/uL Immature Gran # (Auto) (0.00-0.02) K/uL PT (9.0-12.0) Seconds INR (0.9-1.1) Sodium (136-145) mmol/L Potassium (3.5-5.1) mmol/L Chloride (98-107) mmol/L Carbon Dioxide (21-32) mmol/L Anion Gap (3-11) BUN (7-18) mg/dl Creatinine (0.6-1.4) mg/dl Est Cr Clr Drug Dosing ml/min Est GFR ( Amer) ml/min Est GFR (Non-Af Amer) ml/min BUN/Creatinine Ratio (10-20) Glucose (70-99) mg/dl Lactate 3.8 H* (0.4-2.0) mmol/L Calcium (8.5-10.1) mg/dl Magnesium (1.8-2.4) mg/dl Total Bilirubin (0.2-1) mg/dl AST (15-37) U/L ALT (12-78) U/L Alkaline Phosphatase (45-117) U/L Troponin I (0-0.045) ng/ml Total Protein (6.4-8.2) gm/dl Albumin (3.4-5.0) gm/dl Globulin (2.5-4.0) gm/dl Albumin/Globulin Ratio (0.9-2) Amylase (25-115) U/L Lipase (73-393) U/L Procalcitonin (0-0.5) ng/ml TSH (0.300-4.500) uIu/ml Urine Color Urine Appearance (Clear) Urine pH (4.5-7.5) Ur Specific [place] (1.000-1.030) Urine Protein (Negative) Urine Glucose (UA) (Negative) Urine Ketones (Negative) Urine Blood (Negative) Urine Nitrite (Negative) Urine Bilirubin (Negative) Urine Urobilinogen (Negative) Ur Leukocyte Esterase (Negative) Urine Opiates Screen (Neg) Ur Methadone, Qual (Neg) Urine Barbiturates (Neg) Ur Phencyclidine (PCP) (Neg) U Amphetamin/Meth Scrn (Neg) MDMA (Ecstasy) Screen (Neg) U Benzodiazepines Scrn (Neg) Ur Cocaine Metabolite (Neg) U Marijuana (THC) Screen (Neg) Ethyl Alcohol mg/dL (0-3) mg/dl COVID-19 Eval Order Covid19 at [facility] SARS-CoV-2 (PCR) NEGATIVE (Negative) 03/20/21 03/20/21 03/20/21 Range/Units 22:53 22:54 23:39 WBC (4.8-10.8) K/uL RBC (4.7-6.1) M/uL Hgb (14.0-18.0) g/dL Hct (42-52) % MCV (80-100) fL MCH (25-34) pg MCHC (32-36) g/dL RDW Std Deviation (36.4-46.3) fL RDW Coeff of Gucci (11.5-14.5) % Plt Count (130-400) K/uL MPV (7.4-10.4) fL Immature Gran % (Auto) % Neut % (Auto) % Lymph % (Auto) % Garrard % (Auto) % Eos % (Auto) % Baso % (Auto) % Neut # (Auto) (1.4-6.5) K/uL Lymph # (Auto) (1.2-3.4) K/uL Garrard # (Auto) (0.11-0.59) K/uL Eos # (Auto) (0-0.5) K/uL Baso # (Auto) (0-0.2) K/uL Immature Gran # (Auto) (0.00-0.02) K/uL PT (9.0-12.0) Seconds INR (0.9-1.1) Sodium (136-145) mmol/L Potassium (3.5-5.1) mmol/L Chloride (98-107) mmol/L Carbon Dioxide (21-32) mmol/L Anion Gap (3-11) BUN (7-18) mg/dl Creatinine (0.6-1.4) mg/dl Est Cr Clr Drug Dosing ml/min Est GFR ( Amer) ml/min Est GFR (Non-Af Amer) ml/min BUN/Creatinine Ratio (10-20) Glucose (70-99) mg/dl Lactate (0.4-2.0) mmol/L Calcium (8.5-10.1) mg/dl Magnesium (1.8-2.4) mg/dl Total Bilirubin (0.2-1) mg/dl AST (15-37) U/L ALT (12-78) U/L Alkaline Phosphatase (45-117) U/L Troponin I (0-0.045) ng/ml Total Protein (6.4-8.2) gm/dl Albumin (3.4-5.0) gm/dl Globulin (2.5-4.0) gm/dl Albumin/Globulin Ratio (0.9-2) Amylase (25-115) U/L Lipase (73-393) U/L Procalcitonin < 0.05 (0-0.5) ng/ml TSH (0.300-4.500) uIu/ml Urine Color Yellow Urine Appearance Clear (Clear) Urine pH 5.5 (4.5-7.5) Ur Specific [place] 1.005 (1.000-1.030) Urine Protein Negative (Negative) Urine Glucose (UA) 2+ H (Negative) Urine Ketones Negative (Negative) Urine Blood Negative (Negative) Urine Nitrite Negative (Negative) Urine Bilirubin Negative (Negative) Urine Urobilinogen Negative (Negative) Ur Leukocyte Esterase Negative (Negative) Urine Opiates Screen (Neg) Ur Methadone, Qual (Neg) Urine Barbiturates (Neg) Ur Phencyclidine (PCP) (Neg) U Amphetamin/Meth Scrn (Neg) MDMA (Ecstasy) Screen (Neg) U Benzodiazepines Scrn (Neg) Ur Cocaine Metabolite (Neg) U Marijuana (THC) Screen (Neg) Ethyl Alcohol mg/dL 228.8 H (0-3) mg/dl COVID-19 Eval Order SARS-CoV-2 (PCR) (Negative) 03/20/21 Range/Units 23:39 WBC (4.8-10.8) K/uL RBC (4.7-6.1) M/uL Hgb (14.0-18.0) g/dL Hct (42-52) % MCV (80-100) fL MCH (25-34) pg MCHC (32-36) g/dL RDW Std Deviation (36.4-46.3) fL RDW Coeff of Gucci (11.5-14.5) % Plt Count (130-400) K/uL MPV (7.4-10.4) fL Immature Gran % (Auto) % Neut % (Auto) % Lymph % (Auto) % Garrard % (Auto) % Eos % (Auto) % Baso % (Auto) % Neut # (Auto) (1.4-6.5) K/uL Lymph # (Auto) (1.2-3.4) K/uL Garrard # (Auto) (0.11-0.59) K/uL Eos # (Auto) (0-0.5) K/uL Baso # (Auto) (0-0.2) K/uL Immature Gran # (Auto) (0.00-0.02) K/uL PT (9.0-12.0) Seconds INR (0.9-1.1) Sodium (136-145) mmol/L Potassium (3.5-5.1) mmol/L Chloride (98-107) mmol/L Carbon Dioxide (21-32) mmol/L Anion Gap (3-11) BUN (7-18) mg/dl Creatinine (0.6-1.4) mg/dl Est Cr Clr Drug Dosing ml/min Est GFR ( Amer) ml/min Est GFR (Non-Af Amer) ml/min BUN/Creatinine Ratio (10-20) Glucose (70-99) mg/dl Lactate (0.4-2.0) mmol/L Calcium (8.5-10.1) mg/dl Magnesium (1.8-2.4) mg/dl Total Bilirubin (0.2-1) mg/dl AST (15-37) U/L ALT (12-78) U/L Alkaline Phosphatase (45-117) U/L Troponin I (0-0.045) ng/ml Total Protein (6.4-8.2) gm/dl Albumin (3.4-5.0) gm/dl Globulin (2.5-4.0) gm/dl Albumin/Globulin Ratio (0.9-2) Amylase (25-115) U/L Lipase (73-393) U/L Procalcitonin (0-0.5) ng/ml TSH (0.300-4.500) uIu/ml Urine Color Urine Appearance (Clear) Urine pH (4.5-7.5) Ur Specific [place] (1.000-1.030) Urine Protein (Negative) Urine Glucose (UA) (Negative) Urine Ketones (Negative) Urine Blood (Negative) Urine Nitrite (Negative) Urine Bilirubin (Negative) Urine Urobilinogen (Negative) Ur Leukocyte Esterase (Negative) Urine Opiates Screen Neg (Neg) Ur Methadone, Qual Neg (Neg) Urine Barbiturates Neg (Neg) Ur Phencyclidine (PCP) Neg (Neg) U Amphetamin/Meth Scrn Neg (Neg) MDMA (Ecstasy) Screen Neg (Neg) U Benzodiazepines Scrn Neg (Neg) Ur Cocaine Metabolite Neg (Neg) U Marijuana (THC) Screen Neg (Neg) Ethyl Alcohol mg/dL (0-3) mg/dl COVID-19 Eval Order SARS-CoV-2 (PCR) (Negative) Imaging Data Attestation: I personally reviewed and interpreted this imaging study as follows: MDM Narrative Prior records/ancillary studies reviewed. Triage Nursing notes reviewed. Additional history obtained from nursing. The patient's history was concerning for abdominal pain. Differential diagnosis: Etiologies such as appendicitis, diverticulitis, PUD, biliary pathology, UTI, pancreatitis, obstruction, mesenteric ischemia, aortic pathology, infections, i nflammatory bowel disease, renal colic, as well as others were entertained. Physical examination findings: As above. ER treatment provided: An order was placed for continuous cardiac monitoring. The monitor shows a rate of 60-120 with a sinus rhythm. IV fluids, droperidol, Dilaudid, Benadryl On reassessment the patient felt better. Diagnostics interpreted by me: ECG: Ordered for abdominal pain EKG: Normal sinus, normal intervals, no acute ST-T wave changes, rate of 100. Impression normal sinus rhythm interpreted by myself I think arrhythmia is unlikely. EKG shows normal sinus rhythm with no interval abnormalities such as QT prolongation or WPW. There are no findings to suggest Brugada syndrome. Cardiac monitoring in the emergency department reveals no tachycardic or bradycardic dysrhythmia. Hypertrophic cardiomyopathy was considered but there are no clear historical elements pointing toward this. EKG is not suggestive. The QRS voltage is not extremely large and there are no suggestive Q waves. The labs revealed elevated alcohol, elevated lactic Imaging studies: Chest x-ray with no acute consolidation, pneumothorax or free air per my tribulation CT ABDOMEN & PELVIS With Contrast: Comparison: 02/26/2021. Lung bases are clear. Normal cardiac size. Possible mild diffuse fattyappearance status post cholecystectomywith no biliarydilatation pain normal spleen, bilateral adrenal glands and bilateral kidneys. Trace jasmina- pancreatic stranding raising the concern for pancreatitis. Correlation with amylase and lipase recommended. Normal aorta. Stomach is decompressed otherwise unremarkable. Fluid within the ascending colon with mild thickening of the wall, cannot exclude ascending colitis. Nonvisualized appendix. Borderline thickening of the wall side of the small bowel loops is images 60 through 61, series 2. Unremarkable urinarybladder and prostate gland. Posterior fusion fromL4-S1. Otherwise unremarkable lumbar spine and bonypelvis. Impression: Possible pancreatitis as described. Correlation with amylase and lipase recommended. Mild diffuse fattyliver. Status post cholecystectomy. Possible enterocolitis. No bowel obstruction. Radiologist: Isabel Weiner MD Consultation: A consultation was placed with the hospitalist, Dr. Enamorado. The case was discussed and diagnostics were reviewed. The patient was evaluated in the ER for further treatment. Exam and history seem consistent with recurrent alcoholic pancreatitis. Patient is requesting admission. Medicine was consulted. He will be evaluated. By the evaluation outlined above emergent etiologies such as appendicitis, diverticulitis, PUD, biliary pathology, UTI, obstruction, mesenteric ischemia, aortic pathology, infections, inflammatory bowel disease, renal colic, as well as others were deemed relatively unlikely. The pt informed about the findings as listed above. All questions were answered and pleased with the treatment. The chart was completed utilizing [employer] Speech voice recognition software. Grammatical errors, random word insertions, pronoun errors, and incomplete sentences are an occassional consequence of this system due to software limitations, ambient noise, and hardware issues. Any formal questions or concerns about the content, text, or information contained within the body of this dictation should be directly addressed to the physician golf player assistant for clarification. Impression & Plan Acute alcoholic pancreatitis Discharge Plan Visit Data Chief Complaint: Abdominal Pain Stated Complaint: UPPER ABDOMINAL PAIN ED Provider: Quinten Mauro ED Midlevel Provider: Maryan Jo Discharge Problem: Acute alcoholic pancreatitis Patient Disposition: Admitted As Inpatient Condition: Fair Discharge Instructions Interventions: ED Discharge Assessment Last Done: 03/21/21 01:44 Discharge Problem: Acute alcoholic pancreatitis Qualifiers: Acute pancreatitis complication: unspecified Qualified Code(s): K85.20 - Alcohol induced acute pancreatitis without necrosis or infection
[2021-03-20] MEDS ORDERED: ACETAMINOPHEN 325 MG TAB PO PRN (23:41)
[2021-03-20 23:48] LABS: Appearance Urine Clear (Clear); Bilirubin Urine Negative (Negative); Blood Urine Negative (Negative); Color Urine Yellow; Glucose Urine UA 2+ (Negative); Ketones Urine Negative (Negative); Leukocyte Esterase Urine Negative (Negative); Nitrite Urine Negative (Negative); Protein Urine Negative (Negative); Specific Gravity Urine 1.005 (1.000-1.030); Urobilinogen Urine Negative (Negative); pH Urine 5.5 (4.5-7.5)
[2021-03-21] MEDS ORDERED: GABAPENTIN 600 MG TAB PO STA
[2021-03-21 00:08] LABS: Amphetamines+Metham, Urine Neg (Neg); Barbiturates, Urine Neg (Neg); Benzodiazepine, Urine Neg (Neg); Cocaine, Urine Neg (Neg); MDMA (Ecstacy), Urine Neg (Neg); Methadone, Urine Neg (Neg); Opiate, Urine Neg (Neg); Phencyclidine, Urine Neg (Neg)
--- NOTE | 2021-03-21 00:13 | History & Physical Report ---
Date of Service March 21, 2021 Assessment & Plan (1) Abdominal pain: Plan: Recurrent pancreatitis: Secondary to EtOH abuse Lactic acidosis secondary to illness, clinical dehydration hx chronic pain/narcotic abuse as per records/terminated medication agreement hx DM2, not on maintenance medication secondary to noncompliance Suboptimal control as of recent hemoglobin A1c of 9.05 February 2021 Situational hypertension ADD/mood disorder as per records, at baseline Hx PE as per records, not on anticoagulation secondary to alcoholism GERD/Renae's esophagus on PPI Alcoholic hepatitis, good prognosis with low Madrey DF score Medical telemetry Bowel rest, LRS IVF, follow lactic acid GI consult if with worsening abdominal pain DT precautions, RHETT S Judicious narcotic use given history drug abuse as per records I told patient I was not comfortable prescribing IV narcotics for his pain. basal insulin, ISS BG goal [id number] DVT prophylaxis per Lovenox subcu Full code Text document was generated using [employer] voice recognition software. It may contain grammatical or spelling errors. Kindly contact undersigned for clarification of any documentation item in question. History of Present Illness Chief Complaint: Abdominal pain Primary Care Provider: Dhiraj Myers, History is obtained from the patient and records. Medical history is significant for ADD/mood disorder as per records, DM2, medication noncompliance, GERD/Renae's esophagus, recurrent alcoholic pancreatitis, hx PE as per records, history of chronic pain. hx narcotic abuse as per records/terminated medication agreement Recent confinement 3 weeks ago for alcohol withdrawal, gastritis and chronic pancreatitis. Patient went back to drinking alcohol a few days after discharge. No-show at PCP follow-up appointments. Patient not answering outpatient case management calls as per documentation. 2 days history of achy left-sided upper abdominal pain reminiscent of pancreatitis attack. Some nausea emesis. No fever, no chills. Denies chest pain, S OB. MEDICAL HISTORY: As above. SURGERIES: Appendectomy, cholecystectomy, vascular device placement. Back surgery FAMILY HISTORY: There is a family history of mood disorder. Alcoholism, heart disease. 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 Allergies Allergy/AdvReac Type Severity Reaction Status Date / Time No Known Allergies Allergy Verified 03/20/21 23:27 Home Medications Medication Instructions Recorded Confirmed Type paroxetine HCl 20 mg tablet 20 mg PO QAM 12/20/19 03/20/21 History pantoprazole 40 mg tablet,delayed 40 mg PO QAM 01/18/20 03/20/21 History release folic acid 1 mg tablet 1,000 mcg PO DAILY #30 tab 03/01/21 03/20/21 Rx pantoprazole 40 mg tablet,delayed 40 mg PO QAM #30 tab 03/01/21 03/20/21 Rx release sucralfate 100 mg/mL oral 1 g PO QID #200 ml 03/01/21 03/20/21 Rx suspension thiamine HCl (vitamin B1) 100 mg 100 mg PO DAILY #30 tab 03/01/21 03/20/21 Rx tablet Past Med/Surg History Medical History (Updated 03/20/21 @ 23:40 by Maryan Jo PA-C) Abdominal pain Acute hyperglycemia Alcohol abuse (Unknown) Alcohol abuse Renae's esophagus (Unknown) "per EGD 11/23/09 " On 05/31/11 09:06 Martinez Jose wrote "per EGD 11/23/09 " Chest pain Depression Depression DM type 2 (diabetes mellitus, type 2) Encounter for alcohol abuse counseling and surveillance Encounter for pre-operative examination Encounter for tobacco use cessation counseling H/O acute pancreatitis "recurrent" History of substance abuse Hyperglycemia Intentional drug overdose Lumbar degenerative disc disease Mood disorder Mood disorder Neuropathy Pancreatitis Panic disorder Pulmonary embolism Suicidal ideation Suicidal ideation Suicide attempt Surgical History H/O esophagogastroduodenoscopy "EGD 11/23/2009- mild gastritis, suspicious for gastroparesis, Z-line irregular EUS 02/04/2010- mild chronic pancreatitis, pronounced cholesterolosis of gallbladder, no biliary dilation or stones, probable gastroparesis EGD 10/31/2014- gastritis" S/P lumbar fusion L4-S1 2014 Family History Father Alcohol abuse Social History Smoking Status: Never smoker Tobacco Type: Smokeless Tobacco (Dip or Chew) Second Hand Exposure: No; Hx Alcohol Use: Yes Alcohol type: beer Hx Substance Use: No Preferred Language: [place] Communication Ability: Effective Trials Manager Required: No Beliefs That Will Affect Care: None marital status: Current Living Situation: Parent Current Living Situation Comment: with mother Feels Safe at Home: Yes Safety Concerns: Feels Safe At This Time Assistive Devices: None Review of Systems Review of Systems: As per HPI, all 10 systems reviewed, all other ROS negative Physical Exam Physical Exam: GENERAL: Comfortable, no respiratory distress SKIN: Normal color, warm HEENT: Alopecia, [place] palpebral conjunctivae, no ptosis, dry buccal mucosa, poor dentition NECK : Supple, short neck, no tenderness CHEST : CTA, no tenderness HEART : Tachycardic , no obvious murmurs ABDOMEN: Some distention, epigastric tenderness EXTREMITIES : No LE swelling/tenderness, no other conspicuous deformities noted NEUROLOGIC : Coherent, no facial asymmetry, no other gross focality Results & Data Results & Data ([facility]) Vital Signs (Past 12 Hours) Vital Signs Temp Pulse Resp BP Pulse Ox 03/20/21 22:40 98 03/20/21 22:36 36.1 C L 101 H 18 130/97 98 Laboratory Results Laboratory Results WBC 6.86 K/uL (4.8-10.8) 03/20/21 22:39 RBC 4.88 M/uL (4.7-6.1) 03/20/21 22:39 Hgb 16.4 g/dL (14.0-18.0) 03/20/21 22:39 Hct 45.0 % (42-52) 03/20/21 22:39 MCV 92.2 fL (80-100) 03/20/21 22:39 MCH 33.6 pg (25-34) 03/20/21 22:39 MCHC 36.4 g/dL (32-36) H 03/20/21 22:39 RDW Std Deviation 41.2 fL (36.4-46.3) 03/20/21 22:39 RDW Coeff of Gucci 12.2 % (11.5-14.5) 03/20/21 22:39 Plt Count 154 K/uL (130-400) 03/20/21 22:39 MPV 9.3 fL (7.4-10.4) 03/20/21 22:39 Immature Gran % (Auto) 0.1 % 03/20/21 22:39 Neut % (Auto) 66.0 % 03/20/21 22:39 Lymph % (Auto) 21.1 % 03/20/21 22:39 [place] % (Auto) 10.5 % 03/20/21 22:39 Eos % (Auto) 2.0 % 03/20/21 22:39 Baso % (Auto) 0.3 % 03/20/21 22:39 Neut # (Auto) 4.52 K/uL (1.4-6.5) 03/20/21 22:39 Lymph # (Auto) 1.45 K/uL (1.2-3.4) 03/20/21 22:39 [place] # (Auto) 0.72 K/uL (0.11-0.59) H 03/20/21 22:39 Eos # (Auto) 0.14 K/uL (0-0.5) 03/20/21 22:39 Baso # (Auto) 0.02 K/uL (0-0.2) 03/20/21 22:39 Immature Gran # (Auto) 0.01 K/uL (0.00-0.02) 03/20/21 22:39 Sodium 131 mmol/L (136-145) L 03/20/21 22:39 Potassium 3.5 mmol/L (3.5-5.1) 03/20/21 22:39 Chloride 98 mmol/L (98-107) 03/20/21 22:39 Carbon Dioxide 20 mmol/L (21-32) L 03/20/21 22:39 Anion Gap 13.0 (3-11) H 03/20/21 22:39 BUN 7 mg/dl (7-18) 03/20/21 22:39 Creatinine 0.86 mg/dl (0.6-1.4) 03/20/21 22:39 Est Cr Clr Drug Dosing 110.7 ml/min 03/20/21 22:39 Est GFR ( Amer) 119.7 ml/min 03/20/21 22:39 Est GFR (Non-Af Amer) 103.3 ml/min 03/20/21 22:39 BUN/Creatinine Ratio 7.6 (10-20) L 03/20/21 22:39 Glucose 232 mg/dl (70-99) H 03/20/21 22:39 Lactate 3.8 mmol/L (0.4-2.0) H* 03/20/21 22:53 Calcium 9.8 mg/dl (8.5-10.1) 03/20/21 22:39 Magnesium 2.0 mg/dl (1.8-2.4) 03/20/21 22:39 Total Bilirubin 0.9 mg/dl (0.2-1) 03/20/21 22:39 AST 66 U/L (15-37) H 03/20/21 22:39 ALT 69 U/L (12-78) 03/20/21 22:39 Alkaline Phosphatase 89 U/L (45-117) 03/20/21 22:39 Troponin I < 0.015 ng/ml (0-0.045) 03/20/21 22:39 Total Protein 7.6 gm/dl (6.4-8.2) 03/20/21 22:39 Albumin 3.3 gm/dl (3.4-5.0) L 03/20/21 22:39 Globulin 4.3 gm/dl (2.5-4.0) H 03/20/21 22:39 Albumin/Globulin Ratio 0.8 (0.9-2) L 03/20/21 22:39 Amylase 44 U/L (25-115) 03/20/21 22:39 Lipase 269 U/L (73-393) 03/20/21 22:39 TSH 1.470 uIu/ml (0.300-4.500) 03/20/21 22:39 Urine Color Yellow 03/20/21 23:39 Urine Appearance Clear (Clear) 03/20/21 23:39 Urine pH 5.5 (4.5-7.5) 03/20/21 23:39 Ur Specific [place] 1.005 (1.000-1.030) 03/20/21 23:39 Urine Protein Negative (Negative) 03/20/21 23:39 Urine Glucose (UA) 2+ (Negative) H 03/20/21 23:39 Urine Ketones Negative (Negative) 03/20/21 23:39 Urine Blood Negative (Negative) 03/20/21 23:39 Urine Nitrite Negative (Negative) 03/20/21 23:39 Urine Bilirubin Negative (Negative) 03/20/21 23:39 Urine Urobilinogen Negative (Negative) 03/20/21 23:39 Ur Leukocyte Esterase Negative (Negative) 03/20/21 23:39 Urine Opiates Screen Neg (Neg) 03/20/21 23:39 Ur Methadone, Qual Neg (Neg) 03/20/21 23:39 Urine Barbiturates Neg (Neg) 03/20/21 23:39 Ur Phencyclidine (PCP) Neg (Neg) 03/20/21 23:39 U Amphetamin/Meth Scrn Neg (Neg) 03/20/21 23:39 MDMA (Ecstasy) Screen Neg (Neg) 03/20/21 23:39 U Benzodiazepines Scrn Neg (Neg) 03/20/21 23:39 Ur Cocaine Metabolite Neg (Neg) 03/20/21 23:39 U Marijuana (THC) Screen Neg (Neg) 03/20/21 23:39 Ethyl Alcohol mg/dL 228.8 mg/dl (0-3) H 03/20/21 22:53 COVID-19 Eval Order Covid19 at [facility] 03/20/21 22:52 SARS-CoV-2 (PCR) NEGATIVE (Negative) 03/20/21 22:[address] abdomen pelvis initial read: Lung bases are clear. Normal cardiac size. Possible mild diffuse fattyappearance status post cholecystectomywith no biliarydilatation pain normal spleen, bilateral adrenal glands and bilateral kidneys. Trace jasmina-pancreatic stranding raising the concern for pancreatitis. Correlation with amylase and lipase recommended. Normal aorta. Stomach is decompressed otherwise unremarkable. Fluid within the ascending colon with mild thickening of the wall, cannot exclude ascending colitis. Nonvisualized appendix. Borderline thickening of the wall side of the small bowel loops is images 60 through 61, series 2. Unremarkable urinarybladder and prostate gland. Posterior fusion fromL4-S1. Otherwise unremarkable lumbar spine and bonypelvis. Impression: Possible pancreatitis as described. Correlation with amylase and lipase r ecommended. Mild diffuse fattyliver. Status post cholecystectomy. Possible enterocolitis. No bowel obstruction. Chest x-ray as per my interpretation cardiomegaly, elevated right hemidiaphragm EKG as per my interpretation : Rate 100, NSR, normal axis, no ischemia (1) Abdominal pain Abdominal location: upper abdomen, unspecified Qualified Code(s): R10.10 - Upper abdominal pain, unspecified
[2021-03-21] MEDS ORDERED: OPTIRAY 320 100ml IV ONE (00:35)
[2021-03-21] MEDS ORDERED: INSULIN GLARGINE SOLOSTAR 100 UNITS/ML 3 ML PEN SC STA (00:35)
[2021-03-21 00:51] LABS: Prothrombin Time 10.4 Seconds (9.0-12.0)
[2021-03-21] MEDS ORDERED: LACTATED RINGER'S 1,000 ML IV ONE ×2 (01:40→05:16)
[2021-03-21] MEDS ORDERED: DEXTROSE 50% 50 ML SYRINGE IV PRN (02:17)
[2021-03-21] MEDS ORDERED: GLUCOSE 40% GEL 15 GM TUBE PO PRN (02:17)
[2021-03-21] MEDS ORDERED: LORazepam 2 MG/4 ML VIAL IV PRN (02:17)
[2021-03-21] MEDS ORDERED: LORazepam 3 MG/6 ML VIAL IV PRN (02:17)
[2021-03-21] MEDS ORDERED: GLUCAGON FOR INJ 1 MG VIAL SQ PRN (02:17)
[2021-03-21] MEDS ORDERED: GLUCOSE 10 TABS/TUBE PO PRN (02:17)
[2021-03-21] MEDS ORDERED: PROMETHAZINE HCL 12.5 MG in SODIUM CHLORIDE 0.9% 50 ML IV PRN (02:17)
[2021-03-21] MEDS ORDERED: ATIVAN IV ALCOHOL WITHDRAWL IV PRN (02:17)
[2021-03-21] MEDS ORDERED: CARBOHYDRATES FOR HYPOGLYCEMIA PO PRN (02:17)
[2021-03-21] MEDS: GABAPENTIN 1200MG ALCOHOL WITHDRAWAL LOAD PO STA ×2 (03:10→03:13)
[2021-03-21] MEDS ORDERED: LACTATED RINGER'S 1,000 ML IV SCH (03:30)
[2021-03-21 04:18] LABS: Basophils # (auto) 0.03 K/uL (0-0.2); Basophils % (auto) 0.6 %; Eosinophils # (auto) 0.26 K/uL (0-0.5); Eosinophils % (auto) 5.2 %; Hematocrit (blood only) 41.8 % (42-52); Immature Granulocytes # (auto) 0.01 K/uL (0.00-0.02); Immature Granulocytes % (auto) 0.2 %; Mean Corpuscular Hemoglobin 33.4 pg (25-34); Mean Corpuscular Hgb Conc 35.9 g/dL (32-36); Mean Corpuscular Volume 93.1 fL (80-100); Mean Platelet Volume 9.1 fL (7.4-10.4); Monocytes # (auto) 0.43 K/uL (0.11-0.59); Monocytes % (auto) 8.6 %; Neutrophils # (auto) 2.57 K/uL (1.4-6.5); Neutrophils % (auto) 51.4 %; Platelet Count 115 K/uL (130-400); RDW Coefficient of Variation 12.3 % (11.5-14.5); RDW Standard Deviation 41.9 fL (36.4-46.3); Red Blood Count 4.49 M/uL (4.7-6.1)
[2021-03-21] MEDS: INSULIN ASPART 100 UNITS/ML 3 ML PEN SC SCH ×5 (04:29→21:37)
[2021-03-21] MEDS: oxyCODONE HCL IR 5 MG TAB (IMMEDIATE RELEASE) PO PRN ×4 (04:33→18:38)
[2021-03-21 04:42] LABS: Albumin Globulin Ratio 0.7 (0.9-2); Albumin Level 2.7 gm/dl (3.4-5.0); BUN Creatinine Ratio 5.9 (10-20); Bilirubin,Total 0.8 mg/dl (0.2-1); Calcium 8.6 mg/dl (8.5-10.1); Creatinine Clr Calc Pharmacy 127.5 ml/min; Est GFR (African American) 120.3 ml/min; Est GFR (Non-African American) 103.8 ml/min; Globulin 3.7 gm/dl (2.5-4.0); Potassium 4.1 mmol/L (3.5-5.1); RBC Morphology Unremarkable; Total Protein 6.4 gm/dl (6.4-8.2)
[2021-03-21] MEDS: GABAPENTIN 600 MG TAB PO SCH ×3 (05:35→22:20)
[2021-03-21] MEDS: LACTATED RINGER'S 1,000 ML IV SCH ×4 (07:39→22:16)
--- NOTE | 2021-03-21 07:48 | CT Scan Report ---
ABDOMEN AND PELVIS CT WITH IV CONTRAST CT DOSE: 553.89 mGy.cm HISTORY: Generalized abdominal pain. TECHNIQUE: Multiaxial CT images of the abdomen and pelvis were performed following the use of intrave nous contrast. A dose lowering technique was utilized adhering to the principles of ALARA. COMPARISON STUDY: Abdomen and pelvis CT 02/26/2021. FINDINGS: The lung bases are clear. No pneumoperitoneum. No pneumatosis. Posterior decompression and fusion within the lower lumbar spine. No fractures within the visualized osseous structures. Hepatic steatosis. Cholecystectomy. Mild peripancreatic inflammatory change involving the body and head of th e pancreas. This is consistent with acute pancreatitis. No peripancreatic fluid collections or necros is identified. There are few punctate calcifications within the uncinate process of the pancreas cons istent with a chronic pancreatitis. The adrenal glands, kidneys, and spleen are unremarkable. Mild up per abdominal varicosities, unchanged. The main portal vein is patent. No retroperitoneal lymphadenop athy. Normal caliber abdominal aorta. Bladder is mildly distended with mild wall thickening. This cou ld be due to chronic outlet obstruction from the mildly enlarged prostate gland. No bowel wall thicke daniel or obstruction. The appendix is surgically absent. No pelvic free fluid. Fluid within the nondis tended colon. A few colonic diverticula. No evidence for acute diverticulitis. IMPRESSION: 1. Acute pancreatitis. No peripancreatic fluid collections or necrosis identified. 2. Fluid-filled nondilated colon. This is nonspecific but can be seen in the setting of a gastroenter itis. 3. Hepatic steatosis. 4. Cholecystectomy and appendectomy. 5. Colonic diverticulosis. No evidence for acute diverticulitis. ACT 112: Negative or not required by law. Electronically signed by: Ronak Vega M.D. 03/21/2021 7:47 AM
--- NOTE | 2021-03-21 08:14 | XRay Report ---
XR chest 1V portable HISTORY: Atypical chest pain COMPARISON: Chest 01/18/2021. FINDINGS: The lungs are clear. Cardiac silhouette is normal in size. No pleural effusions. No pneumot horax. IMPRESSION: No acute process. ACT 112: Negative or not required by law. Electronically signed by: Ronak Vega M.D. 03/21/2021 8:12 AM
[2021-03-21] MEDS: MULTIVITAMIN TAB PO SCH (08:15)
[2021-03-21] MEDS: ENOXAPARIN INJ 40 MG/0.4 ML SYR SQ SCH (08:15)
[2021-03-21] MEDS: FOLIC ACID 1 MG TAB PO SCH (08:16)
[2021-03-21] MEDS: PANTOprazole 40 MG TAB PO SCH (08:16)
[2021-03-21] MEDS: PARoxetine HCL 20 MG TAB PO SCH (08:16)
[2021-03-21] MEDS: SUCRALFATE 1 GM/10 ML UDC PO SCH ×4 (08:16→21:37)
[2021-03-21] MEDS: THIAMINE HCL 100 MG TAB PO SCH (08:17)
[2021-03-21] MEDS: INSULIN GLARGINE SOLOSTAR 100 UNITS/ML 3 ML PEN SC SCH ×2 (08:19→21:39)
[2021-03-21] MEDS ORDERED: MoRPHine SULFATE 2 MG/ML CARP IV PRN ×2 (08:45→08:50)
[2021-03-21] MEDS ORDERED: ENOXAPARIN INJ 30 MG/0.3 ML SYR SQ SCH (09:00)
--- NOTE | 2021-03-21 09:38 | Electrocardiogram Report ---
Test Reason : Blood Pressure : / mmHG Vent. Rate : 100 BPM Atrial Rate : 100 BPM P-R Int : 154 ms QRS Dur : 072 ms QT Int : 338 ms P-R-T Axes : 058 042 048 degrees QTc Int : 436 ms Poor data quality, interpretation may be adversely affected Normal sinus rhythm Normal ECG When compared with ECG of 26-FEB-2021 08:16, No significant change was found Confirmed by Faizan Vallejo ([id number]) on 03/21/2021 9:37:57 AM Referred By: REFERRED SELF Confirmed By:Faizan Vallejo
[2021-03-21] MEDS: FAMOTIDINE 20 MG in SYRINGE 3 ML IV SCH ×2 (10:29→21:36)
[2021-03-21] MEDS: LORazepam 1 MG/2 ML VIAL IV PRN ×3 (12:38→21:36)
[2021-03-21] MEDS: MoRPHine SULFATE 2 MG/ML CARP IV PRN ×2 (16:17→22:20)
--- NOTE | 2021-03-21 17:02 | Hospitalist Progress Note ---
Date of Service March 21, 2021 Assessment & Plan (1) Abdominal pain: Plan: Recurrent pancreatitis Secondary to Alcohol abuse Lactic acidosis -CT ABD: Acute pancreatitis. No peripancreatic fluid collections or necrosis identified. Fluid-filled nondilated colon. This is nonspecific but can be seen in the setting of a gastroenteritis. Hepatic steatosis. Cholecystectomy and appendectomy. Colonic diverticulosis. No evidence for acute diverticulitis. 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 Not on meds due to noncompliance as per records HbA1c of 9.05 February 2021 Diabetic education Continue Insulin therapy Monitor BGs ADD/mood disorder Continue home meds H/O PE Not on anticoagulation secondary to alcoholism GERD/Renae's esophagus Continue PPI DVT Px: Lovenox SQ Code Status Full code Admission and Anticipated Discharge Date Admission Date: March 21, 2021 Subjective Patient is seen and examined bedside States having abdominal pain radiating to back Also states having withdrawal tremors Denies chest pain, shortness of breath, dizziness Offers no other complaints Review of Systems Review of Systems: All systems reviewed & are unremarkable except as noted in Subjective Physical Exam Physical Exam: Physical Exam: Vitals signs as noted above General Appearance:Moderately built and nourished, no apparent distress Head: normocephalic, Atraumatic Eyes: normal inspection, EOMI Neck: supple, Trachea midline Respiratory/Chest: Normal breath sounds, CTA, No accessory muscle use Cardiovascular: S1, S2, No murmur Abdomen/GI:Soft, Abd tender, Bowel sounds present Extremities/Musculoskeletal:normal inspection, no edema Neurologic/Psych:AAOX3, grossly no focal neurological deficits,+ tremor Skin: normal color, warm Results & Data Results & Data ([facility]) Vital Signs (Past 12 Hours) Vital Signs Temp Pulse Pulse Resp BP Pulse Ox 03/21/21 15:25 108 H 03/21/21 14:35 36.9 C 92 H 18 131/69 93 03/21/21 12:44 36.6 C 94 H 18 127/81 98 03/21/21 08:04 63 03/21/21 07:38 36.8 C 64 18 101/62 96 Laboratory Results Short CBC 03/20/21 03/21/21 Range/Units 22:39 04:11 WBC 6.86 5.00 (4.8-10.8) K/uL Hgb 16.4 15.0 (14.0-18.0) g/dL Hct 45.0 41.8 L (42-52) % Plt Count 154 115 L (130-400) K/uL BMP 03/20/21 03/21/21 22:39 04:11 Sodium 131 L 140 D Potassium 3.5 4.1 D Chloride 98 108 H Carbon Dioxide 20 L 27 BUN 7 5 L Creatinine 0.86 0.85 Glucose 232 H 146 H Calcium 9.8 8.6 Cardiac Enzymes 03/20/21 Range/Units 22:39 Troponin I < 0.015 (0-0.045) ng/ml Liver Function 03/20/21 03/21/21 Range/Units 22:39 04:11 Total Bilirubin 0.9 0.8 (0.2-1) mg/dl AST 66 H 75 H (15-37) U/L ALT 69 62 (12-78) U/L Alkaline Phosphatase 89 77 (45-117) U/L Albumin 3.3 L 2.7 L (3.4-5.0) gm/dl Urine 03/20/21 Range/Units 23:39 Urine Color Yellow Urine Appearance Clear (Clear) Urine pH 5.5 (4.5-7.5) Ur Specific [place] 1.005 (1.000-1.030) Urine Protein Negative (Negative) Urine Glucose (UA) 2+ H (Negative) (1) Abdominal pain Abdominal location: upper abdomen, unspecified Qualified Code(s): R10.10 - Upper abdominal pain, unspecified
[2021-03-21] MEDS ORDERED: Nursing to Pharmacy Communication SCH (17:15)
[2021-03-22] MEDS: oxyCODONE HCL IR 5 MG TAB (IMMEDIATE RELEASE) PO PRN ×2 (00:17→05:36)
[2021-03-22] MEDS: LORazepam 1 MG/2 ML VIAL IV PRN ×3 (01:24→19:47)
[2021-03-22] MEDS: LACTATED RINGER'S 1,000 ML IV SCH ×3 (03:12→19:33)
[2021-03-22] MEDS: MoRPHine SULFATE 2 MG/ML CARP IV PRN (04:45)
[2021-03-22] MEDS: GABAPENTIN 600 MG TAB PO SCH ×3 (05:32→23:53)
[2021-03-22] MEDS: MULTIVITAMIN TAB PO SCH (08:01)
[2021-03-22] MEDS: FOLIC ACID 1 MG TAB PO SCH (08:01)
[2021-03-22] MEDS: PANTOprazole 40 MG TAB PO SCH (08:01)
[2021-03-22] MEDS: THIAMINE HCL 100 MG TAB PO SCH (08:01)
[2021-03-22] MEDS: ENOXAPARIN INJ 40 MG/0.4 ML SYR SQ SCH (08:01)
[2021-03-22] MEDS: PARoxetine HCL 20 MG TAB PO SCH (08:02)
[2021-03-22] MEDS: SUCRALFATE 1 GM/10 ML UDC PO SCH ×4 (08:02→20:21)
[2021-03-22] MEDS ORDERED: PHARMACY GLYCEMIC MGMT CONSULT PRN (08:08)
[2021-03-22] MEDS: FAMOTIDINE 20 MG in SYRINGE 3 ML IV SCH ×2 (08:52→20:21)
[2021-03-22] MEDS: INSULIN GLARGINE SOLOSTAR 100 UNITS/ML 3 ML PEN SC SCH (08:53)
[2021-03-22] MEDS ORDERED: HYDROmorphone INJ 1 MG/ML SYRINGE IV PRN (08:55)
[2021-03-22] MEDS: INSULIN ASPART 100 UNITS/ML 3 ML PEN SC SCH ×4 (08:58→20:22)
[2021-03-22 09:00] LABS: Hematocrit (blood only) 43.7 % (42-52); Hemoglobin 15.6 g/dL (14.0-18.0); Mean Corpuscular Hemoglobin 33.4 pg (25-34); Mean Corpuscular Hgb Conc 35.7 g/dL (32-36); Mean Corpuscular Volume 93.6 fL (80-100); RDW Coefficient of Variation 12.2 % (11.5-14.5); RDW Standard Deviation 41.3 fL (36.4-46.3); Red Blood Count 4.67 M/uL (4.7-6.1); White Blood Count 4.15 K/uL (4.8-10.8)
[2021-03-22 09:18] LABS: BUN Creatinine Ratio 5.3 (10-20); Calcium 9.1 mg/dl (8.5-10.1); Creatinine Clr Calc Pharmacy 163.1 ml/min; Est GFR (African American) 131.8 ml/min; Est GFR (Non-African American) 113.7 ml/min
[2021-03-22 09:52] LABS: Mean Platelet Volume 11.1 fL (7.4-10.4); Platelet Count 90 K/uL (130-400)
[2021-03-22 09:53] LABS: Platelet Estimate Decreased (Normal)
[2021-03-22 10:06] LABS: Potassium 3.8 mmol/L (3.5-5.1)
[2021-03-22 10:07] LABS: Magnesium 1.9 mg/dl (1.8-2.4)
--- NOTE | 2021-03-22 10:53 | Pharmacy Report ---
Pharmacy Glycemic Short Note 2 - Date of Service March 22, 2021 - Glycemic Short BSG Results (Last 24 hours): 03/21/21 03/21/21 03/21/21 12:45 16:33 20:20 Glucose POC Glucose 209 H 210 H 174 H 03/22/21 03/22/21 07:31 08:11 Glucose 137 H POC Glucose 140 H OUTPATIENT ANTIDIABETIC REGIMEN: * n/a * A1c 9.2% 02/2021 ASSESSMENT: * 45 year old admitted with recurrent pancreatitis secondary to ETOH abuse. Hx of DM2, not on any maintenance medication. GI consulted for worsening abdominal pain. Pharmacy consulted for glycemic management * Patient received total of 26 units of insulin yesterday, of which 15 units were basal insulin * Fasting BSG 140 mg/dL - plan to continue with same basal for today, will change to once daily * Plan to tighten CF/CR to stress of 2/3 dosing PLAN FOR INPATIENT GLYCEMIC CONTROL: * Hold outpatient oral diabetes medications * Basal insulin * Lantus - 15 units daily * Bolus insulin * NovoLog per scale ACHS or Q6hrs while NPO * Goal Range: Low 110 mg/dL - High 140 mg/dL * Correction Factor: 20 mg/dL/unit * Nutritional / Prandial insulin per carb ratio of 1 unit per 7 grams CHO consumed PLAN FOR DISCHARGE: * A1c 9.2% - goal <7% * If A1c is between 8% and 10% - dual combination therapy recommended (Metformin + additional agent) * For patients without ASCVD, HF, or CKD choice of add on agent to metformin is based on patient specific factors including efficacy, hypo risk, weight gain/loss, side effects, cost * Would avoid DPP-4 inhibitors as patient with history of pancreatitis and the potential of acute pancreatitis with these agents. Caution with GLP-1 RA as associated with increased GI side effects * Recommend starting: Metformin XR 500mg PO daily with evening meal. Could consider an add on agent based upon patient preference/insurance coverage
[2021-03-22] MEDS: HYDROmorphone INJ 1 MG/ML SYRINGE IV PRN ×2 (15:11→22:07)
--- NOTE | 2021-03-22 16:25 | Hospitalist Progress Note ---
Date of Service March 22, 2021 Assessment & Plan (1) Abdominal pain: Plan: Recurrent pancreatitis Secondary to Alcohol abuse Lactic acidosis -CT ABD: Acute pancreatitis. No peripancreatic fluid collections or necrosis identified. Fluid-filled nondilated colon. This is nonspecific but can be seen in the setting of a gastroenteritis. Hepatic steatosis. Cholecystectomy and appendectomy. Colonic diverticulosis. No evidence for acute diverticulitis. 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 ADD/mood disorder Continue home meds H/O PE Not on anticoagulation secondary to alcoholism GERD/Renae's esophagus Continue PPI DVT Px: Lovenox SQ Code Status Full code Admission and Anticipated Discharge Date Admission Date: March 21, 2021 Subjective Patient is seen and examined bedside Abdominal pain improving Tolerating diet Withdrawal symptoms improving as well Denies chest pain, shortness of breath, dizziness Review of Systems Review of Systems: All systems reviewed & are unremarkable except as noted in Subjective Physical Exam Physical Exam: Physical Exam: Vitals signs as noted above General Appearance:Moderately built and nourished, no apparent distress Head: normocephalic, Atraumatic Eyes: normal inspection, EOMI Neck: supple, Trachea midline Respiratory/Chest: Normal breath sounds, CTA, No accessory muscle use Cardiovascular: S1, S2, No murmur Abdomen/GI:Soft, Abd tender, Bowel sounds present Extremities/Musculoskeletal:normal inspection, no edema Neurologic/Psych:AAOX3, grossly no focal neurological deficits,+ tremor Skin: normal color, warm Results & Data Results & Data ([facility]) Vital Signs (Past 12 Hours) Vital Signs Temp Pulse Pulse Resp BP Pulse Ox 03/22/21 15:36 36.8 C 72 18 127/79 97 03/22/21 11:21 36.9 C 78 18 116/64 97 03/22/21 07:48 82 03/22/21 07:24 36.8 C 87 18 119/69 95 Laboratory Results Short CBC 03/22/21 Range/Units 07:52 WBC 4.15 L (4.8-10.8) K/uL Hgb 15.6 (14.0-18.0) g/dL Hct 43.7 (42-52) % Plt Count 90 L (130-400) K/uL BMP 03/22/21 03/22/21 08:11 09:35 Sodium 137 Potassium 3.8 Chloride 106 Carbon Dioxide 24 BUN 4 L Creatinine 0.68 Glucose 137 H Calcium 9.1 (1) Abdominal pain Abdominal location: upper abdomen, unspecified Qualified Code(s): R10.10 - Upper abdominal pain, unspecified
[2021-03-23] MEDS: LACTATED RINGER'S 1,000 ML IV SCH ×2 (03:17→12:23)
[2021-03-23] MEDS: HYDROmorphone INJ 1 MG/ML SYRINGE IV PRN ×4 (04:07→22:52)
[2021-03-23 07:16] LABS: BUN Creatinine Ratio 4.3 (10-20); Calcium 9.1 mg/dl (8.5-10.1); Creatinine Clr Calc Pharmacy 117.9 ml/min; Est GFR (African American) 111.5 ml/min; Est GFR (Non-African American) 96.2 ml/min; Potassium 3.9 mmol/L (3.5-5.1)
[2021-03-23 07:32] LABS: Beta-Hydroxybutyrate 0.85 mg/dl (0.2-2.81)
[2021-03-23] MEDS ORDERED: HYDROmorphone INJ 1 MG/ML SYRINGE IV PRN (08:24)
--- NOTE | 2021-03-23 08:25 | Hospitalist Progress Note ---
Date of Service March 23, 2021 Assessment & Plan (1) Abdominal pain: Plan: Recurrent pancreatitis Secondary to Alcohol abuse Lactic acidosis -CT ABD: Acute pancreatitis. No peripancreatic fluid collections or necrosis identified. Fluid-filled nondilated colon. This is nonspecific but can be seen in the setting of a gastroenteritis. Hepatic steatosis. Cholecystectomy and appendectomy. Colonic diverticulosis. No evidence for acute diverticulitis. 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 II Not on meds due to noncompliance as per records HbA1c of 9.05 February 2021 Diabetic education Continue Insulin therapy Monitor BGs 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 ADD/mood disorder Continue home meds H/O PE Not on anticoagulation secondary to alcoholism GERD/Renae's esophagus Continue PPI DVT Px: Lovenox SQ Code Status Full code Admission and Anticipated Discharge Date Admission Date: March 21, 2021 Subjective Patient is seen and examined bedside Less abdominal pain today States having some abd discomfort with food intake Reports having some shakiness but better Denies chest pain, shortness of breath, dizziness Refuses Rehab placement Blood glucose levels still high Review of Systems Review of Systems: All systems reviewed & are unremarkable except as noted in Subjective Physical Exam Physical Exam: Physical Exam: Vitals signs as noted above General Appearance:Moderately built and nourished, no apparent distress Head: normocephalic, Atraumatic Eyes: normal inspection, EOMI Neck: supple, Trachea midline Respiratory/Chest: Normal breath sounds, CTA, No accessory muscle use Cardiovascular: S1, S2, No murmur Abdomen/GI:Soft, Abd tender, Bowel sounds present Extremities/Musculoskeletal:normal inspection, no edema Neurologic/Psych:AAOX3, grossly no focal neurological deficits,+ tremor Skin: normal color, warm Results & Data Results & Data ([facility]) Vital Signs (Past 12 Hours) Vital Signs Temp Pulse Pulse Resp BP Pulse Ox 03/23/21 07:37 36.6 C 70 18 127/80 99 03/23/21 07:36 74 03/23/21 03:44 36.9 C 89 18 132/77 97 03/22/21 23:13 36.9 C 91 H 18 144/88 H 97 03/22/21 22:19 78 Laboratory Results [facility] 03/23/21 06:00 Sodium 134 L Potassium 3.9 Chloride 103 Carbon Dioxide 26 BUN 4 L Creatinine 0.94 Glucose 334 H* Calcium 9.1 (1) Abdominal pain Abdominal location: upper abdomen, unspecified Qualified Code(s): R10.10 - Upper abdominal pain, unspecified
[2021-03-23] MEDS: PANTOprazole 40 MG TAB PO SCH (09:35)
[2021-03-23] MEDS: ENOXAPARIN INJ 40 MG/0.4 ML SYR SQ SCH (09:35)
[2021-03-23] MEDS: FOLIC ACID 1 MG TAB PO SCH (09:35)
[2021-03-23] MEDS: SUCRALFATE 1 GM/10 ML UDC PO SCH ×4 (09:35→20:33)
[2021-03-23] MEDS: MULTIVITAMIN TAB PO SCH (09:35)
[2021-03-23] MEDS: THIAMINE HCL 100 MG TAB PO SCH (09:35)
[2021-03-23] MEDS: PARoxetine HCL 20 MG TAB PO SCH (09:35)
[2021-03-23] MEDS: INSULIN GLARGINE SOLOSTAR 100 UNITS/ML 3 ML PEN SC SCH (09:36)
[2021-03-23] MEDS: INSULIN ASPART 100 UNITS/ML 3 ML PEN SC SCH ×4 (09:40→20:33)
--- NOTE | 2021-03-23 09:55 | Pharmacy Report ---
Pharmacy Glycemic Short Note 2 - Date of Service March 23, 2021 - Glycemic Short BSG Results (Last 24 hours): 03/22/21 03/22/21 03/22/21 11:17 16:38 20:06 Glucose POC Glucose 145 H 130 H 220 H 03/22/21 03/23/21 03/23/21 23:49 06:00 07:30 Glucose 334 H* POC Glucose 185 H 296 H OUTPATIENT ANTIDIABETIC REGIMEN: * n/a * A1c 9.2% 02/2021 ASSESSMENT: 03/23 * Patient received total of 28 units of insulin yesterday, of which 15 units were basal insulin * Fasting BSG elevated, however after discussion with RN patient requested snacks overnight and refused insulin coverage * Plan to continue same basal insulin for now, no change to CF/CR 03/22 * 45 year old admitted with recurrent pancreatitis secondary to ETOH abuse. Hx of DM2, not on any maintenance medication. GI consulted for worsening abdominal pain. Pharmacy consulted for glycemic management * Patient received total of 26 units of insulin yesterday, of which 15 units were basal insulin * Fasting BSG 140 mg/dL - plan to continue with same basal for today, will change to once daily * Plan to tighten CF/CR to stress of 2/3 dosing PLAN FOR INPATIENT GLYCEMIC CONTROL: * Hold outpatient oral diabetes medications * Basal insulin * Lantus - 15 units daily * Bolus insulin * NovoLog per scale ACHS or Q6hrs while NPO * Goal Range: Low 110 mg/dL - High 140 mg/dL * Correction Factor: 20 mg/dL/unit * Nutritional / Prandial insulin per carb ratio of 1 unit per 7 grams CHO consumed PLAN FOR DISCHARGE: * A1c 9.2% - goal <7% * If A1c is between 8% and 10% - dual combination therapy recommended (Metformin + additional agent) * For patients without ASCVD, HF, or CKD choice of add on agent to metformin is based on patient specific factors including efficacy, hypo risk, weight gain/loss, side effects, cost * Would avoid DPP-4 inhibitors as patient with history of pancreatitis and the potential of acute pancreatitis with these agents. Caution with GLP-1 RA as associated with increased GI side effects * Recommend starting: Metformin XR 500mg PO daily with evening meal. Could consider an add on agent based upon patient preference/insurance coverage
[2021-03-23] MEDS: GABAPENTIN 600 MG TAB PO SCH (12:18)
[2021-03-23] MEDS: LORazepam 1 MG/2 ML VIAL IV PRN (13:39)
[2021-03-24] MEDS: HYDROmorphone INJ 1 MG/ML SYRINGE IV PRN (05:01)
[2021-03-24 07:44] VITALS: PULSE 69; TEMP 97.5; O2SAT 99
[2021-03-24 07:52] LABS: Hematocrit (blood only) 45.4 % (42-52); Hemoglobin 16.3 g/dL (14.0-18.0); Mean Corpuscular Hemoglobin 33.6 pg (25-34); Mean Corpuscular Hgb Conc 35.9 g/dL (32-36); Mean Corpuscular Volume 93.6 fL (80-100); Mean Platelet Volume 9.7 fL (7.4-10.4); Platelet Count 119 K/uL (130-400); RDW Coefficient of Variation 12.2 % (11.5-14.5); RDW Standard Deviation 40.8 fL (36.4-46.3); Red Blood Count 4.85 M/uL (4.7-6.1); White Blood Count 4.39 K/uL (4.8-10.8)
[2021-03-24 08:17] LABS: Calcium 9.8 mg/dl (8.5-10.1); Creatinine Clr Calc Pharmacy 145.8 ml/min; Est GFR (African American) 125.9 ml/min; Est GFR (Non-African American) 108.6 ml/min; Magnesium 2.2 mg/dl (1.8-2.4); Potassium 3.7 mmol/L (3.5-5.1)
[2021-03-24] MEDS: ENOXAPARIN INJ 40 MG/0.4 ML SYR SQ SCH (08:31)
[2021-03-24] MEDS: PARoxetine HCL 20 MG TAB PO SCH (08:31)
[2021-03-24] MEDS: FOLIC ACID 1 MG TAB PO SCH (08:31)
[2021-03-24] MEDS: MULTIVITAMIN TAB PO SCH (08:31)
[2021-03-24] MEDS: THIAMINE HCL 100 MG TAB PO SCH (08:32)
[2021-03-24] MEDS: SUCRALFATE 1 GM/10 ML UDC PO SCH (08:32)
[2021-03-24] MEDS: PANTOprazole 40 MG TAB PO SCH (08:32)
[2021-03-24] MEDS: INSULIN ASPART 100 UNITS/ML 3 ML PEN SC SCH (08:36)
[2021-03-24] MEDS ORDERED: INSULIN GLARGINE SOLOSTAR 100 UNITS/ML 3 ML PEN SC SCH (09:00)
--- NOTE | 2021-03-24 09:29 | Pharmacy Report ---
Pharmacy Glycemic Short Note 2 - Date of Service March 24, 2021 - Glycemic Short BSG Results (Last 24 hours): 03/23/21 03/23/21 03/23/21 11:43 17:04 20:17 Glucose POC Glucose 92 290 H 184 H 03/24/21 03/24/21 07:34 07:35 Glucose 239 H POC Glucose 210 H OUTPATIENT ANTIDIABETIC REGIMEN: * n/a * A1c 9.2% 02/2021 ASSESSMENT: 03/24 * Patient received total of 48 units of insulin yesterday, of which 15 units were basal * Fasting BSG 210 - will increase basal to 20 units this AM * Continue same CF/CR 03/23 * Patient received total of 28 units of insulin yesterday, of which 15 units were basal insulin * Fasting BSG elevated, however after discussion with RN patient requested snacks overnight and refused insulin coverage * Plan to continue same basal insulin for now, no change to CF/CR 03/22 * 45 year old admitted with recurrent pancreatitis secondary to ETOH abuse. Hx of DM2, not on any maintenance medication. GI consulted for worsening abdominal pain. Pharmacy consulted for glycemic management * Patient received total of 26 units of insulin yesterday, of which 15 units were basal insulin * Fasting BSG 140 mg/dL - plan to continue with same basal for today, will change to once daily * Plan to tighten CF/CR to stress of 2/3 dosing PLAN FOR INPATIENT GLYCEMIC CONTROL: * Hold outpatient oral diabetes medications * Basal insulin * Lantus - 20 units daily * Bolus insulin * NovoLog per scale ACHS or Q6hrs while NPO * Goal Range: Low 110 mg/dL - High 140 mg/dL * Correction Factor: 20 mg/dL/unit * Nutritional / Prandial insulin per carb ratio of 1 unit per 7 grams CHO consumed PLAN FOR DISCHARGE: * A1c 9.2% - goal <7% * If A1c is between 8% and 10% - dual combination therapy recommended (Metformin + additional agent) * For patients without ASCVD, HF, or CKD choice of add on agent to metformin is based on patient specific factors including efficacy, hypo risk, weight gain /loss, side effects, cost * Would avoid DPP-4 inhibitors as patient with history of pancreatitis and the potential of acute pancreatitis with these agents. Caution with GLP-1 RA as associated with increased GI side effects * Discussed with provider and patient is chronic alcoholic, therefore will avoid metformin since continued alcohol use likely * Recommend resuming home glipizide 5 mg xl daily on discharge. Discussed with provider that close followup needed as likely another agent will need to be added. Opted to trial single agent for now, as compliance issues in the past
[2021-03-24 09:30] VITALS: BP 101/61
[2021-03-24] MEDS ORDERED: GABAPENTIN 600 MG TAB PO SCH (12:00)
--- NOTE | 2021-03-24 18:48 | Hospitalist Progress Note ---
Date of Service March 24, 2021 Assessment & Plan (1) Abdominal pain: Plan: Recurrent pancreatitis Secondary to Alcohol abuse Lactic acidosis -CT ABD: Acute pancreatitis. No peripancreatic fluid collections or necrosis identified. Fluid-filled nondilated colon. This is nonspecific but can be seen in the setting of a gastroenteritis. Hepatic steatosis. Cholecystectomy and appendectomy. Colonic diverticulosis. No evidence for acute diverticulitis. 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 Not on meds due to noncompliance as per records HbA1c of 9.05 February 2021 Diabetic education Continue Insulin therapy Monitor BGs 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 ADD/mood disorder Continue home meds H/O PE Not on anticoagulation secondary to alcoholism GERD/Renae's esophagus Continue PPI DVT Px: Lovenox SQ Code Status Full code Admission and Anticipated Discharge Date Admission Date: March 21, 2021 Results & Data Results & Data ([facility]) Vital Signs (Past 12 Hours) Vital Signs Temp Pulse Resp BP BP Pulse Ox 03/24/21 09:28 36.4 C L 69 18 101/61 113/76 99 03/24/21 07:00 36.4 C L 69 18 113/76 99 (1) Abdominal pain Abdominal location: upper abdomen, unspecified Qualified Code(s): R10.10 - Upper abdominal pain, unspecified
--- NOTE | 2021-03-31 15:56 | Discharge Summary ---
Date of Service March 31, 2021 Admission HPI Per Admitting Provider History is obtained from the patient and records. Medical history is significant for ADD/mood disorder as per records, DM2, medication noncompliance, GERD/Renae's esophagus, recurrent alcoholic pancreatitis, hx PE as per records, history of chronic pain. hx narcotic abuse as per records/terminated medication agreement Recent confinement 3 weeks ago for alcohol withdrawal, gastritis and chronic pancreatitis. Patient went back to drinking alcohol a few days after discharge. No-show at PCP follow-up appointments. Patient not answering outpatient case management calls as per documentation. 2 days history of achy left-sided upper abdominal pain reminiscent of pancreatitis attack. Some nausea emesis. No fever, no chills. Denies chest pain, S OB. MEDICAL HISTORY: As above. SURGERIES: Appendectomy, cholecystectomy, vascular device placement. Back surgery FAMILY HISTORY: There is a family history of mood disorder. Alcoholism, heart disease. 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 Admission Exam Per Admitting Provider GENERAL: Comfortable, no respiratory distress SKIN: Normal color, warm HEENT: Alopecia, Mccrory palpebral conjunctivae, no ptosis, dry buccal mucosa, poor dentition NECK : Supple, short neck, no tenderness CHEST : CTA, no tenderness HEART : Tachycardic , no obvious murmurs ABDOMEN: Some distention, epigastric tenderness EXTREMITIES : No LE swelling/tenderness, no other conspicuous deformities noted NEUROLOGIC : Coherent, no facial asymmetry, no other gross focality Principal Diagnosis Recurrent Alcohol Pancreatitis Discharge Exam patient not seen Discharge Data Allergies Allergy/AdvReac Type Severity Reaction Status Date / Time No Known Allergies Allergy Verified 03/20/21 23:27 Consultations 03/20/21 23:20 ED Decision to Admit Stat Ordered Studies 03/20/21 23:58 CT abd pelvis IV con only Urgent COMPARISON STUDY: Abdomen and pelvis CT 02/26/2021. FINDINGS: The lung bases are clear. No pneumoperitoneum. No pneumatosis. Posterior decompression and fusion within the lower lumbar spine. No fractures within the visualized osseous structures. Hepatic steatosis. Cholecystectomy. Mild peripancreatic inflammatory change involving the body and head of the pancreas. This is consistent with acute pancreatitis. No peripancreatic fluid collections or necrosis identified. There are few punctate calcifications within the uncinate process of the pancreas consistent with a chronic pancreatitis. The adrenal glands, kidneys, and spleen are unremarkable. Mild upper abdominal varicosities, unchanged. The main portal vein is patent. No retroperitoneal lymphadenopathy. Normal caliber abdominal aorta. Bladder is mildly distended with mild wall thickening. This could be due to chronic outlet obstruction from the mildly enlarged prostate gland. No bowel wall thickening or obstruction. The appendix is surgically absent. No pelvic free fluid. Fluid within the nondistended colon. A few colonic diverticula. No evidence for acute diverticulitis. IMPRESSION: 1. Acute pancreatitis. No peripancreatic fluid collections or necrosis identified. 2. Fluid-filled nondilated colon. This is nonspecific but can be seen in the setting of a gastroenteritis. 3. Hepatic steatosis. 4. Cholecystectomy and appendectomy. 5. Colonic diverticulosis. No evidence for acute diverticulitis. ACT 112: Negative or not required by law. Hospital Course (1) Abdominal pain: per Dr. Luis Recurrent pancreatitis Secondary to Alcohol abuse Lactic acidosis -CT ABD: Acute pancreatitis. No peripancreatic fluid collections or necrosis identified. Fluid-filled nondilated colon. This is nonspecific but can be seen in the setting of a gastroenteritis. Hepatic steatosis. Cholecystectomy and appendectomy. Colonic diverticulosis. No evidence for acute diverticulitis. 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 due to noncompliance as per records HbA1c of 9.05 February 2021 Diabetic education emphasized to patient re: taking Glipizide daily and close ff up with PCP ADD/mood disorder Continue home meds H/O PE Not on anticoagulation secondary to alcoholism GERD/Renae's esophagus Continue PPI Total Time Total Time Spent Total Time Spent (In Minutes): 35 minutes Discharge Plan Discharge Items Patient Disposition: Home - Self-Care Reason For Visit: LACTIC ACIDOSIS, TACHY Discharge Diagnosis: Recurrent Pancreatitis Activity: Resume your previous activity Non-emergency contact: Primary Care Provider Call non-emergency contact if: you have any medication questions, your symptoms worsen, your pain is not controlled, your pain is worsening, your pain is unusual for you, your pain is concerning for you and you have a fever Follow-up/Referrals: Dhiraj Myers, [Primary Care Provider] - (Date & Time 03/30/2021 11:00 AM Provider DO [facility] ) Diet: Carb Consistent or DM2 and Heart Healthy Addtl Attending Provider Instructions: PLEASE CONTINUE YOUR USUAL MEDICATION REGIMEN INCLUDING GLIPIZIDE FOR DIABETES. DRINK PLENTY OF FLUIDS. NO ALCOHOL TO PREVENT RECURRENT PANCREATITIS, AND POSSIBLE COMPLICATIONS. FOLLOW UP WITH PRIMARY CARE PHYSICIAN IN 1 WEEK. CALL PRIMARY CARE PHYSICIAN OR RETURN TO THE ER IMMEDIATELY IF WITH WORSENING OF SYMPTOMS. Pending Studies at Discharge: No Stand-Alone Forms: My [facility], Smoking Cessation Medications and DC Order Prescriptions: New glipizide 5 mg tablet extended release 24hr 5 mg PO DAILY Qty: 30 RF: 2 Continued pantoprazole 40 mg tablet,delayed release (DR/EC) 40 mg PO QAM RF: 0 paroxetine HCl 20 mg tablet 20 mg PO QAM RF: 0 pantoprazole 40 mg Tablet,Delayed Release (Dr/Ec) 40 mg PO QAM Qty: 30 RF: 0 sucralfate 100 mg/mL Suspension 1 g PO QID Qty: 200 RF: 0 thiamine HCl (vitamin B1) 100 mg tablet 100 mg PO DAILY Qty: 30 RF: 0 folic acid 1 mg tablet 1,000 mcg PO DAILY Qty: 30 RF: 0 Discharge Orders: Discharge Order (Routine); Ordered 03/24/21 Ordered By: Antony Bowden/Other Patient Handouts: High Blood Sugar (Hyperglycemia), Understanding Pancreatitis Admission Data Admit Date/Time: 03/21/21 00:30 Attending Provider: Antony Lind Admit Provider: Bishop Enamorado Primary Care Provider: Dhiraj Myers Other Providers: Jon Luis ; Bishop Enamorado Other Interventions: Discharge Summary Assessment (RN) Last Done: 03/24/21 09:28
== END 2021-03-24 10:17 | disposition home or self-care (01) | DRG 439 ==
LOC: ED 22:31 → SUATTDRO 03-21 00:30 → 2N 03-21 00:30

== ENCOUNTER 2021-08-19 19:48 | Inpatient (IN) ==
--- NOTE | 2021-08-19 20:25 | XRay Report ---
SINGLE VIEW CHEST CLINICAL HISTORY: Atypical chest pain FINDINGS: 2 AP, portable, upright chest radiographs compared to study dated 03/20/2021. The cardiomedi astinal silhouette is unremarkable. The lungs and pleural spaces are clear. No pneumothorax is seen. The bony thorax is grossly intact. Cholecystectomy clips are noted in the right upper quadrant. IMPRESSION: No active disease in the chest. ACT 112: Negative or not required by law. Electronically signed by: Kareem Rivas M.D. 08/19/2021 8:24 PM
[2021-08-19] MEDS ORDERED: ONDANSETRON INJ 2 MG/ML 2 ML VIAL IV STA ×2 (21:02→23:57)
[2021-08-19] MEDS ORDERED: SODIUM CHLORIDE 0.9% 1000ML 1,000 ML IV ONE (21:02)
[2021-08-19] MEDS ORDERED: FAMOTIDINE 20MG IV PUSH 20 MG/5 ML SYR IV STA (21:03)
[2021-08-19] MEDS ORDERED: MoRPHine SULFATE 4 MG/ML 1 ML CARP\\VIAL IV STA ×2 (21:03→23:57)
--- NOTE | 2021-08-19 21:13 | Emergency Department Note ---
Impression & Plan Intractable abdominal pain, Nausea & vomiting, COVID-19, Alcoholic ketosis ED Provider Note Provider: Armando Joseph MD DATE OF SERVICE: 08/19/2021 CHIEF COMPLAINT: Chest and left flank pain, nausea and vomiting, myalgias HISTORY OF PRESENT ILLNESS: Patient is a 45-year-old gentleman history of chronic pancreatitis, alcohol abuse, diabetes, Renae's esophagus presenting here today complaining of some central chest pain but more significant left flank pain developing over the past 4 days with some associated fevers, myalgias, and headache. Some nausea and nonbloody vomiting of been reported. Loose stool but no diarrhea reported. Patient denies any trauma or falls. Patient reports he does feel somewhat short of breath. He is not vaccinated for COVID. Denies recent travel or sick contact. Denies leg swelling. Has been using some Tylenol which has helped with the fever some. Patient states the pain is worsened in the left flank. States he has some history of pancreatitis in the past but this seems a little bit more in the left side now. Denies any urinary issues. Patient states he did drink alcohol last today. REVIEW OF SYSTEMS: A total of 10 review of systems was obtained and negative except as stated above in the HPI. PAST MEDICAL HISTORY: As noted above MEDICATIONS: Reviewed home medications SOCIAL HISTORY: Non-smoker, regular alcohol, lives at home with mother PHYSICAL EXAM: GENERAL: alert and oriented seated in chair appears somewhat uncomfortable. Head: normocephalic and atraumatic EYES: No injection, discharge or icterus. NECK: Trachea midline. LUNGS: Airway patent. No retractions. Breath sounds clear with good air entry bilaterally. HEART: Regular rate and rhythm. No chest wall tenderness ABDOMEN: Soft and non-tender, without guarding or rebound. BACK: No bilateral flank tenderness. SKIN: Acyanotic, warm, dry, without rashes EXTREMITIES: Without swelling, tenderness or deformity NEUROLOGICAL: No focal deficits. No aphasia. No facial droop or slurred speech. Ambulatory. EK bpm normal sinus rhythm. No PVC or PAC. No acute ST segment elevation or depression. QTc 436. CONTINUOUS CARDIAC MONITORING: was ordered and showed a heart rate of 80s-100s bpm in normal sinus rhythm to sinus tachycardia Patient's laboratory studies and imaging reviewed. Differential includes cardiac sources, pulmonary sources, diverticulitis, UTI, obstruction, mesenteric ischemia, aortic pathology, inflammatory bowel disease, renal colic, PUD, pancreatitis, biliary pathology, hernia, volvulus, constipation, as well as other pathologies. IMPRESSION/MEDICAL DECISION MAKING: Patient unvaccinated with COVID-like nonspecific symptoms. COVID test was sent. Also having some chest discomfort and left flank discomfort. CT of the chest as well as the abdomen pelvis were obtained. Wanted to exclude PE as well as possible intra-abdominal complication such as kidney stone, pancreatitis/pseudocyst, or other colitis. Patient with nonbloody vomiting and a history of alcohol use. Given some Pepcid here. Is on a PPI at home. Question some component of gastritis. Medical alcohol sent as he endorses alcohol use today. No trauma reported. Not tender in the chest or on the flank to palpation and no overlying evidence of trauma. EKG reassuring. Mild leukopenia but no anemia noted. Pseudohyponatremia from hyperglycemia noted. Some anion gap noted. Mild transaminitis. No lipase elevation. Negative troponin doubt acute cardiac injury. Some component of dehydration and alcoholic ketosis likely causing anion gap. Some ketones in the urine but mainly glucose. Alcohol mildly elevated. COVID positive likely explains majority of his symptoms overlying his underlying issues with gastritis and alcohol use. CT reports as below without significant acute pathology noted per the preliminary reports. Some component of likely gastritis leading to the pain. Patient again did receive some Pepcid as well as morphine, Zofran, normal saline here. On reevaluation patient states his pains returned and now worsened in the left upper quadrant and flank to the epigastrium. Nausea is returned. Given additional Zofran. Given small additional amount of morphine. Discussed results with him. Patient again likely with some alcoholic ketosis and given a banana bag for additional hydration. As he is having significant nausea and vomiting and on total intake with some component of this related to his COVID and discussion with the patient he wishes further observation here and the hospitalist was contacted. DIAGNOSIS: COVID-19, nausea and vomiting, alcohol intoxication, alcoholic ketosis DISPOSITION: Hospitalist will evaluate Patient was agreeable with this plan. Preliminary Findings Only See Final Report For Complete Findings CTA CHEST: No pulmonary embolus. No aortic aneurysm or dissection. Lungs are clear. Heart size is normal. No pathologically enlarged lymph nodes. No fracture. Radiologist: Daya Sanders MD Preliminary Findings Only See Final Report For Complete Findings CT ABDOMEN & PELVIS With Contrast: The solid organs are within normal limits. No hydronephrosis or visualized nephrolithiasis. Cholecystectomy. No obstruction. No fracture. Radiologist: Daya Sanders MD Past Med/Surg History Medical History (Updated 08/20/21 @ 00:12 by Armando Joseph M.D.) Abdominal pain Acute hyperglycemia Alcohol abuse (Unknown) Alcohol abuse Renae's esophagus (Unknown) "per EGD 11/23/09 " On 05/31/11 09:06 Martinez Jose wrote "per EGD 11/23/09 " Chest pain Depression Depression DM type 2 (diabetes mellitus, type 2) Encounter for alcohol abuse counseling and surveillance Encounter for pre-operative examination Encounter for tobacco use cessation counseling H/O acute pancreatitis "recurrent" History of substance abuse Hyperglycemia Intentional drug overdose Lumbar degenerative disc disease Mood disorder Mood disorder Neuropathy Pancreatitis Panic disorder Pulmonary embolism Suicidal ideation Suicidal ideation Suicide attempt Surgical History H/O esophagogastroduodenoscopy "EGD 11/23/2009- mild gastritis, suspicious for gastroparesis, Z-line irregular EUS 02/04/2010- mild chronic pancreatitis, pronounced cholesterolosis of gallbladder, no biliary dilation or stones, probable gastroparesis EGD 10/31/2014- gastritis" S/P lumbar fusion L4-S1 2014 Family History Father Alcohol abuse Social History Smoking Status: Never smoker Tobacco Type: Cigarettes Second Hand Exposure: No; Hx Alcohol Use: Yes Alcohol type: beer Hx Substance Use: No Preferred Language: Urdu Communication Ability: Effective Shop Repairer Required: No Beliefs That Will Affect Care: None marital status: Current Living Situation: Parent Current Living Situation Comment: with mother Feels Safe at Home: Yes Assistive Devices: None Allergies Allergies Allergy/AdvReac Type Severity Reaction Status Date / Time No Known Allergies Allergy Verified 08/19/21 21:59 Home Meds Home Medications Medication Instructions Recorded Confirmed paroxetine HCl 20 mg tablet 20 mg PO QAM 12/20/19 08/19/21 Previous Rx's Medication Instructions Recorded pantoprazole 40 mg tablet,delayed 40 mg PO QAM #30 tab 03/01/21 release Results & Data (ED) Vital Signs Vital Signs - 24 hr 08/19/21 19:55 08/19/21 23:16 Temperature 36.4 C L Temperature Source Temporal Artery Scan Pulse Rate 109 H Pulse Rate [Right Radial] 94 H Pulse Rhythm [Right Radial] Regular Pulse Strength [Right Radial] Normal Respiratory Rate 20 18 Respiratory Effort / Characteristics Non-Labored Spontaneous Non-Labored Spontaneous Respiratory Depth Normal Normal Respiratory Pattern Regular Blood Pressure 127/81 Blood Pressure [Right Arm] 135/88 Blood Pressure Mean 96 Blood Pressure Mean [Right Arm] 103 Blood Pressure Position [Right Arm] Lying Pulse Oximetry 98 97 Oxygen Delivery Method Room Air Room Air Sepsis Recent Fever Within 48 Hours Yes Sepsis New/Unexplained Change in Mental Status N/A Sepsis Action Taken by Nursing No Action Required Laboratory Data Result diagrams: 08/19/21 21:16 08/19/21 21:16 Lab Results 08/19/21 08/19/21 08/19/21 Range/Units 21:16 21:16 21:16 WBC 3.59 L (4.8-10.8) K/uL RBC 5.36 (4.7-6.1) M/uL Hgb 17.9 (14.0-18.0) g/dL Hct 49.5 (42-52) % MCV 92.4 (80-100) fL MCH 33.4 (25-34) pg MCHC 36.2 H (32-36) g/dL RDW Std Deviation 39.3 (36.4-46.3) fL RDW Coeff of Gucci 11.7 (11.5-14.5) % Plt Count 105 L (130-400) K/uL MPV 10.1 (7.4-10.4) fL Immature Gran % (Auto) 0.3 % Neut % (Auto) 60.4 % Lymph % (Auto) 23.7 % [place] % (Auto) 13.6 % Eos % (Auto) 1.4 % Baso % (Auto) 0.6 % Neut # (Auto) 2.17 (1.4-6.5) K/uL Lymph # (Auto) 0.85 L (1.2-3.4) K/uL [place] # (Auto) 0.49 (0.11-0.59) K/uL Eos # (Auto) 0.05 (0-0.5) K/uL Baso # (Auto) 0.02 (0-0.2) K/uL Immature Gran # (Auto) 0.01 (0.00-0.02) K/uL PT (9.0-12.0) Seconds INR (0.9-1.1) Sodium 128 L (136-145) mmol/L Potassium 3.9 (3.5-5.1) mmol/L Chloride 93 L (98-107) mmol/L Carbon Dioxide 20 L (21-32) mmol/L Anion Gap 15 H (3-11) BUN 9 (6-23) mg/dl Creatinine 0.92 (0.6-1.4) mg/dl Est Cr Clr Drug Dosing 108.9 ml/min Est GFR ( Amer) 114.4 ml/min Est GFR (Non-Af Amer) 98.7 ml/min BUN/Creatinine Ratio 9.8 L (10-20) Glucose 376 H* (70-99) mg/dl POC Glucose (70-99) mg/dl Calcium 9.5 (8.5-10.1) mg/dl Magnesium 1.9 (1.7-2.4) mg/dl Total Bilirubin 0.6 (0.2-1.0) mg/dl AST 95 H (13-39) U/L ALT 100 H (7-52) U/L Alkaline Phosphatase 74 (34-104) U/L Troponin I < 0.03 (0-0.04) ng/ml Total Protein 8.0 (6.0-8.3) gm/dl Albumin 4.1 (3.4-5.0) gm/dl Globulin 3.9 (2.5-4.0) gm/dl Albumin/Globulin Ratio 1.1 (0.9-2) Lipase (11-82) U/L Beta-Hydroxybutyric Acd (0.2-2.81) mg/dl Urine Color Urine Appearance (Clear) Urine pH (4.5-7.5) Ur Specific [place] (1.000-1.030) Urine Protein (Negative) Urine Glucose (UA) (Negative) Urine Ketones (Negative) Urine Blood (Negative) Urine Nitrite (Negative) Urine Bilirubin (Negative) Urine Urobilinogen (Negative) Ur Leukocyte Esterase (Negative) Ethyl Alcohol mg/dL 171.5 H (0-9.9) mg/dl SARS-CoV-2 (PCR) (Negative) Influenza Type A (PCR) (Neg) Influenza Type B (PCR) (Neg) RSV (RT-PCR) (Neg) 08/19/21 08/19/21 08/19/21 Range/Units 21:16 21:16 21:16 WBC (4.8-10.8) K/uL RBC (4.7-6.1) M/uL Hgb (14.0-18.0) g/dL Hct (42-52) % MCV (80-100) fL MCH (25-34) pg MCHC (32-36) g/dL RDW Std Deviation (36.4-46.3) fL RDW Coeff of Gucci (11.5-14.5) % Plt Count (130-400) K/uL MPV (7.4-10.4) fL Immature Gran % (Auto) % Neut % (Auto) % Lymph % (Auto) % [place] % (Auto) % Eos % (Auto) % Baso % (Auto) % Neut # (Auto) (1.4-6.5) K/uL Lymph # (Auto) (1.2-3.4) K/uL [place] # (Auto) (0.11-0.59) K/uL Eos # (Auto) (0-0.5) K/uL Baso # (Auto) (0-0.2) K/uL Immature Gran # (Auto) (0.00-0.02) K/uL PT 9.9 (9.0-12.0) Seconds INR 1.0 (0.9-1.1) Sodium (136-145) mmol/L Potassium (3.5-5.1) mmol/L Chloride (98-107) mmol/L Carbon Dioxide (21-32) mmol/L Anion Gap (3-11) BUN (6-23) mg/dl Creatinine (0.6-1.4) mg/dl Est Cr Clr Drug Dosing ml/min Est GFR ( Amer) ml/min Est GFR (Non-Af Amer) ml/min BUN/Creatinine Ratio (10-20) Glucose (70-99) mg/dl POC Glucose (70-99) mg/dl Calcium (8.5-10.1) mg/dl Magnesium (1.7-2.4) mg/dl Total Bilirubin (0.2-1.0) mg/dl AST (13-39) U/L ALT (7-52) U/L Alkaline Phosphatase (34-104) U/L Troponin I (0-0.04) ng/ml Total Protein (6.0-8.3) gm/dl Albumin (3.4-5.0) gm/dl Globulin (2.5-4.0) gm/dl Albumin/Globulin Ratio (0.9-2) Lipase 12 (11-82) U/L Beta-Hydroxybutyric Acd 12.41 H (0.2-2.81) mg/dl Urine Color Urine Appearance (Clear) Urine pH (4.5-7.5) Ur Specific [place] (1.000-1.030) Urine Protein (Negative) Urine Glucose (UA) (Negative) Urine Ketones (Negative) Urine Blood (Negative) Urine Nitrite (Negative) Urine Bilirubin (Negative) Urine Urobilinogen (Negative) Ur Leukocyte Esterase (Negative) Ethyl Alcohol mg/dL (0-9.9) mg/dl SARS-CoV-2 (PCR) (Negative) Influenza Type A (PCR) (Neg) Influenza Type B (PCR) (Neg) RSV (RT-PCR) (Neg) 08/19/21 08/19/21 08/20/21 Range/Units 21:20 21:23 00:41 WBC (4.8-10.8) K/uL RBC (4.7-6.1) M/uL Hgb (14.0-18.0) g/dL Hct (42-52) % MCV (80-100) fL MCH (25-34) pg MCHC (32-36) g/dL RDW Std Deviation (36.4-46.3) fL RDW Coeff of Gucci (11.5-14.5) % Plt Count (130-400) K/uL MPV (7.4-10.4) fL Immature Gran % (Auto) % Neut % (Auto) % Lymph % (Auto) % [place] % (Auto) % Eos % (Auto) % Baso % (Auto) % Neut # (Auto) (1.4-6.5) K/uL Lymph # (Auto) (1.2-3.4) K/uL [place] # (Auto) (0.11-0.59) K/uL Eos # (Auto) (0-0.5) K/uL Baso # (Auto) (0-0.2) K/uL Immature Gran # (Auto) (0.00-0.02) K/uL PT (9.0-12.0) Seconds INR (0.9-1.1) Sodium (136-145) mmol/L Potassium (3.5-5.1) mmol/L Chloride (98-107) mmol/L Carbon Dioxide (21-32) mmol/L Anion Gap (3-11) BUN (6-23) mg/dl Creatinine (0.6-1.4) mg/dl Est Cr Clr Drug Dosing ml/min Est GFR ( Amer) ml/min Est GFR (Non-Af Amer) ml/min BUN/Creatinine Ratio (10-20) Glucose (70-99) mg/dl POC Glucose 222 H (70-99) mg/dl Calcium (8.5-10.1) mg/dl Magnesium (1.7-2.4) mg/dl Total Bilirubin (0.2-1.0) mg/dl AST (13-39) U/L ALT (7-52) U/L Alkaline Phosphatase (34-104) U/L Troponin I (0-0.04) ng/ml Total Protein (6.0-8.3) gm/dl Albumin (3.4-5.0) gm/dl Globulin (2.5-4.0) gm/dl Albumin/Globulin Ratio (0.9-2) Lipase (11-82) U/L Beta-Hydroxybutyric Acd (0.2-2.81) mg/dl Urine Color Yellow Urine Appearance Clear (Clear) Urine pH 5.0 (4.5-7.5) Ur Specific [place] 1.017 (1.000-1.030) Urine Protein Negative (Negative) Urine Glucose (UA) 3+ H (Negative) Urine Ketones 1+ H (Negative) Urine Blood Negative (Negative) Urine Nitrite Negative (Negative) Urine Bilirubin Negative (Negative) Urine Urobilinogen Negative (Negative) Ur Leukocyte Esterase Negative (Negative) Ethyl Alcohol mg/dL (0-9.9) mg/dl SARS-CoV-2 (PCR) POSITIVE A* (Negative) Influenza Type A (PCR) Negative (Neg) Influenza Type B (PCR) Negative (Neg) RSV (RT-PCR) Negative (Neg) Administered Medications Discontinued Medications Sodium Chloride (Nss 1000ml) 1,000 mls @ 999 mls/hr IV .Q1H1M ONE Stop: 08/19/21 22:02 Last Infusion: 08/19/21 23:40 Dose: 0 mls/hr Documented by: [id number] Admin: 08/19/21 22:07 Dose: 999 mls/hr Documented by: [id number] Famotidine (Pepcid 20mg Iv Push) 20 mg in 5 mls @ 2.5 mls/min IV NOW STA Stop: 08/19/21 21:04 Last Admin: 08/19/21 22:08 Dose: 2.5 mls/min Documented by: [id number] Multivitamins 10 ml/ Thiamine HCl 100 mg/ Folic Acid 1 mg/Sodium Chloride 1,011.2 mls @ 1,011.2 mls/hr IV .Q1H ONE Stop: 08/20/21 00:56 Last Admin: 08/20/21 00:20 Dose: 1,011.2 mls/hr Documented by: [id number] Pantoprazole Sodium 40 mg/ (Syringe) 10 mls @ 5 mls/min IV NOW ONE Stop: 08/19/21 23:58 Last Admin: 08/20/21 00:21 Dose: 5 mls/min Documented by: [id number] Ioversol (Optiray 320 125ml) 120 ml IV ONCE ONE Stop: 08/19/21 22:26 Last Admin: 08/19/21 22:25 Dose: 120 ml Documented by: [id number] Morphine Sulfate (Morphine Sulfate 4 Mg/Ml 1 Ml Carp\\Vial) 4 mg IV NOW STA Stop: 08/19/21 21:04 Last Admin: 08/19/21 22:08 Dose: 4 mg Documented by: [id number] Morphine Sulfate (Morphine Sulfate 4 Mg/Ml 1 Ml Carp\\Vial) 4 mg IV NOW STA Stop: 08/19/21 23:58 Last Admin: 08/20/21 00:20 Dose: 4 mg Documented by: [id number] Ondansetron HCl (Ondansetron Inj 2 Mg/Ml 2 Ml Vial) 4 mg IV NOW STA Stop: 08/19/21 21:03 Last Admin: 08/19/21 22:08 Dose: 4 mg Documented by: [id number] Ondansetron HCl (Ondansetron Inj 2 Mg/Ml 2 Ml Vial) 4 mg IV NOW STA Stop: 08/19/21 23:58 Last Admin: 08/20/21 00:32 Dose: 4 mg Documented by: [id number] Imaging Data Radiologist's Impression: Chest X-Ray 08/19/21 20:00 SINGLE VIEW CHEST CLINICAL HISTORY: Atypical chest pain FINDINGS: 2 AP, portable, upright chest radiographs compared to study dated 03/20/2021. The cardiomediastinal silhouette is unremarkable. The lungs and p leural spaces are clear. No pneumothorax is seen. The bony thorax is grossly intact. Cholecystectomy clips are noted in the right upper quadrant. IMPRESSION: No active disease in the chest. ACT 112: Negative or not required by law. Electronically signed by: Kareem Rivas M.D. 08/19/2021 8:24 PM Discharge Plan Visit Data Chief Complaint: Flu Like Symptoms Stated Complaint: HEADACHE, VOMITING, FEVER 103, COUGH SINCE 08/16 ED Provider: Armando Joseph Discharge Problem: Intractable abdominal pain, Nausea & vomiting, COVID-19, Alcoholic ketosis Patient Disposition: Being Evaluated by Hospitalist Forms Stand Alone Forms: [facility] Prescriptions Prescriptions: No Action paroxetine HCl 20 mg tablet 20 mg PO QAM RF: 0 pantoprazole 40 mg Tablet,Delayed Release (Dr/Ec) 40 mg PO QAM Qty: 30 RF: 0 Referrals Referrals: Dhiraj Myers DO [Primary Care Provider] - Discharge Problem: Nausea & vomiting Qualifiers: Vomiting type: unspecified Qualified Code(s): R11.2 - Nausea with vomiting, unspecified
[2021-08-19 21:32] LABS: Basophils # (auto) 0.02 K/uL (0-0.2); Basophils % (auto) 0.6 %; Eosinophils # (auto) 0.05 K/uL (0-0.5); Eosinophils % (auto) 1.4 %; Hematocrit (blood only) 49.5 % (42-52); Hemoglobin 17.9 g/dL (14.0-18.0); Immature Granulocytes # (auto) 0.01 K/uL (0.00-0.02); Immature Granulocytes % (auto) 0.3 %; Lymphocytes # (auto) 0.85 K/uL (1.2-3.4); Lymphocytes % (auto) 23.7 %; Mean Corpuscular Hemoglobin 33.4 pg (25-34); Mean Corpuscular Hgb Conc 36.2 g/dL (32-36); Mean Corpuscular Volume 92.4 fL (80-100); Mean Platelet Volume 10.1 fL (7.4-10.4); Monocytes # (auto) 0.49 K/uL (0.11-0.59); Monocytes % (auto) 13.6 %; Neutrophils # (auto) 2.17 K/uL (1.4-6.5); Neutrophils % (auto) 60.4 %; Platelet Count 105 K/uL (130-400); RDW Coefficient of Variation 11.7 % (11.5-14.5); RDW Standard Deviation 39.3 fL (36.4-46.3); Red Blood Count 5.36 M/uL (4.7-6.1); White Blood Count 3.59 K/uL (4.8-10.8)
[2021-08-19 21:33] LABS: Appearance Urine Clear (Clear); Bilirubin Urine Negative (Negative); Blood Urine Negative (Negative); Color Urine Yellow; Glucose Urine UA 3+ (Negative); Ketones Urine 1+ (Negative); Leukocyte Esterase Urine Negative (Negative); Nitrite Urine Negative (Negative); Protein Urine Negative (Negative); Specific Gravity Urine 1.017 (1.000-1.030); Urobilinogen Urine Negative (Negative)
[2021-08-19 21:53] LABS: Troponin I < 0.03 ng/ml (0-0.04)
[2021-08-19 22:04] LABS: Alanine Aminotransferase 100 U/L (7-52); Albumin Globulin Ratio 1.1 (0.9-2); Albumin Level 4.1 gm/dl (3.4-5.0); Alkaline Phosphatase 74 U/L (34-104); Anion Gap 15 (3-11); Aspartate Aminotransferase 95 U/L (13-39); BUN Creatinine Ratio 9.8 (10-20); Bilirubin,Total 0.6 mg/dl (0.2-1.0); Blood Urea Nitrogen 9 mg/dl (6-23); Calcium 9.5 mg/dl (8.5-10.1); Carbon Dioxide 20 mmol/L (21-32); Chloride 93 mmol/L (98-107); Creatinine Clr Calc Pharmacy 108.9 ml/min; Est GFR (African American) 114.4 ml/min; Est GFR (Non-African American) 98.7 ml/min; Globulin 3.9 gm/dl (2.5-4.0); Glucose 376 mg/dl (70-99); Magnesium 1.9 mg/dl (1.7-2.4); Potassium 3.9 mmol/L (3.5-5.1); Sodium 128 mmol/L (136-145)
[2021-08-19 22:07] LABS: Influenza A virus by PCR Negative (Neg); Influenza B virus by PCR Negative (Neg); RSV by PCR Negative (Neg)
[2021-08-19 22:12] LABS: SARS CoV2 RNA(COVID-19) InHosp POSITIVE (Negative)
[2021-08-19] MEDS ORDERED: OPTIRAY 320 125ml IV ONE (22:25)
[2021-08-19] MEDS ORDERED: PANTOprazole 40 MG in SYRINGE 0 ML IV ONE (23:57)
[2021-08-19] MEDS ORDERED: MULTI-VITAMIN INFUSION 10 ML, THIAMINE HCL 100 MG, FOLIC ACID 1 MG in SODIUM CHLORIDE 0... IV ONE (23:57)
[2021-08-20] MEDS ORDERED: ACETAMINOPHEN 325 MG TAB PO PRN (00:46)
--- NOTE | 2021-08-20 00:47 | History & Physical Report ---
Date of Service August 20, 2021 Assessment & Plan (1) Alcohol withdrawal: Plan: mild ketoacidosis secondary to alcohol intake and dehydration from COVID-19 illness DM2, medication noncompliance Suboptimal control as of recent hemoglobin A1c of 9.05 February 2021 ADD/mood disorder as per records, at baseline Hx PE as per records, not on anticoagulation secondary to alcoholism hx GERD/Renae's esophagus Chronic pain/recurrent pancreatitis/history medication misuse as per records chronic thrombocytopenia Medical telemetry RHETT S, DT precautions Supportive measures for viral illness Judicious narcotic use given history of addiction (I told patient I was not comfortable giving him IV narcotics given nausea, emesis symptoms) basal insulin, ISS BG goal [id number], carb count coverage, update hemoglobin A1c DVT prophylaxis SCDs Re: Thrombocytopenia Full code Text document was generated using Corepair voice recognition software. It may contain grammatical or spelling errors. Kindly contact undersigned for clarification of any documentation item in question. History of Present Illness Chief Complaint: Chest pain, cough, left-sided abdominal pain, nausea, vomiting Primary Care Provider: Dhiraj Myers DO History is obtained from the patient and records. Medical history is significant for ADD/mood disorder as per records, DM2, medication noncompliance, GERD/Renae's esophagus, recurrent alcoholic pancreatitis, hx PE as per records, history of chronic pain. hx narcotic abuse as per records/terminated medication agreement, chronic thrombocytopenia. Last confinement March 2021 for recurrent alcoholic pancreatitis. Patient discharged on glipizide for his diabetes. Patient admits to not taking glipizide for long because it was not controlling his sugars at home. Few days history of cough productive of white sputum, achy chest pain with shortness of breath, left-sided abdominal/flank pain with nausea emesis watery diarrhea. Some chills. Achy headache symptoms from coughing and being sick as per patient. No known recent COVID-19 contacts. Patient has not received COVID-19 vaccination. Started drinking alcohol again because he could not get comfortable. Patient admits to jittery symptoms, withdrawal possibly starting as per patient. Patient consulted ER for worsening symptoms. MEDICAL HISTORY: As above. SURGERIES: Appendectomy, cholecystectomy, vascular device placement. back surgery FAMILY HISTORY: mood disorder. Alcoholism, heart disease. 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 Allergies Allergy/AdvReac Type Severity Reaction Status Date / Time No Known Allergies Allergy Verified 08/19/21 21:59 Home Medications Medication Instructions Recorded Confirmed Type paroxetine HCl 20 mg tablet 20 mg PO QAM 12/20/19 08/19/21 History pantoprazole 40 mg tablet,delayed 40 mg PO QAM #30 tab 03/01/21 08/19/21 Rx release Past Med/Surg History Medical History (Updated 08/20/21 @ 05:18 by Bishop Enamorado MD) Abdominal pain Acute hyperglycemia Alcohol abuse (Unknown) Alcohol abuse Renae's esophagus (Unknown) "per EGD 11/23/09 " On 05/31/11 09:06 Martinez Jose wrote "per EGD 11/23/09 " Chest pain Depression Depression DM type 2 (diabetes mellitus, type 2) Encounter for alcohol abuse counseling and surveillance Encounter for pre-operative examination Encounter for tobacco use cessation counseling H/O acute pancreatitis "recurrent" History of substance abuse Hyperglycemia Intentional drug overdose Lumbar degenerative disc disease Mood disorder Mood disorder Neuropathy Pancreatitis Panic disorder Pulmonary embolism Suicidal ideation Suicidal ideation Suicide attempt Surgical History H/O esophagogastroduodenoscopy "EGD 11/23/2009- mild gastritis, suspicious for gastroparesis, Z-line irregular EUS 02/04/2010- mild chronic pancreatitis, pronounced cholesterolosis of gallbladder, no biliary dilation or stones, probable gastroparesis EGD 10/31/2014- gastritis" S/P lumbar fusion L4-S1 2014 Family History Father Alcohol abuse Social History Smoking Status: Never smoker Tobacco Type: Cigarettes Second Hand Exposure: No; Hx Alcohol Use: Yes Alcohol type: beer Hx Substance Use: No Preferred Language: Turkish Communication Ability: Effective Librarian Specialist Required: No Beliefs That Will Affect Care: None marital status: Current Living Situation: Parent Current Living Situation Comment: Lives with Viki Dang Other Information That Helps Us Care for You: No Feels Safe at Home: Yes Safety Concerns: Feels Safe At This Time Assistive Devices: None Review of Systems Review of Systems: As per HPI, all 10 systems reviewed, all other ROS negative Physical Exam Physical Exam: GENERAL: Comfortable, no respiratory distress SKIN: Normal color, warm HEENT: Alopecia, [place] palpebral conjunctivae, no ptosis, dry buccal mucosa, poor dentition NECK : Supple, short neck, no tenderness CHEST : CTA, no tenderness HEART : RRR, no obvious murmurs ABDOMEN: Some distention, left-sided abdominal tenderness EXTREMITIES : No LE swelling/tenderness, no other conspicuous deformities noted NEUROLOGIC : Coherent, no facial asymmetry, no other gross focality Results & Data Results & Data ([facility]) Vital Signs (Past 12 Hours) Vital Signs Temp Pulse Pulse Resp BP BP Pulse Ox 08/19/21 23:16 94 H 18 135/88 97 08/19/21 19:55 36.4 C L 109 H 20 127/[address] chest initial read: No pulmonaryembolus. No aortic aneurysmor dissection. Lungs are clear. Heart size is normal. No pathologicallyenlarged lymph nodes. No fracture. CT abdomen pelvis initial read: The solid organs are within normal limits. No hydronephrosis or visualized nephrolithiasis. Cholecystectomy. No obstruction. No fracture. EKG as per my interpretation : Rate 100, NSR, normal axis, no ischemia
[2021-08-20] MEDS ORDERED: GLUCOSE 40% GEL 15 GM TUBE PO PRN (00:52)
[2021-08-20] MEDS ORDERED: GLUCAGON FOR INJ 1 MG VIAL SQ PRN (00:52)
[2021-08-20] MEDS ORDERED: DEXTROSE 50% 50 ML SYRINGE IV PRN (00:52)
[2021-08-20] MEDS ORDERED: GLUCOSE 10 TABS/TUBE PO PRN (00:52)
[2021-08-20] MEDS ORDERED: INSULIN GLARGINE SOLOSTAR 100 UNITS/ML 3 ML PEN SC STA (00:52)
[2021-08-20] MEDS ORDERED: CARBOHYDRATES FOR HYPOGLYCEMIA PO PRN (00:52)
[2021-08-20 01:18] LABS: Prothrombin Time 9.9 Seconds (9.0-12.0)
[2021-08-20] MEDS ORDERED: GABAPENTIN 600 MG TAB PO STA (01:37)
[2021-08-20] MEDS ORDERED: LORazepam 3 MG/6 ML VIAL IV PRN (01:43)
[2021-08-20] MEDS ORDERED: ATIVAN IV ALCOHOL WITHDRAWL IV PRN (01:43)
[2021-08-20] MEDS ORDERED: PROMETHAZINE HCL 12.5 MG in SODIUM CHLORIDE 0.9% 50 ML IV PRN (01:43)
[2021-08-20] MEDS ORDERED: GABAPENTIN 1200MG ALCOHOL WITHDRAWAL LOAD PO STA (01:43)
[2021-08-20] MEDS ORDERED: LORazepam 2 MG/4 ML VIAL IV PRN (01:43)
[2021-08-20] MEDS ORDERED: LACTATED RINGER'S 1,000 ML IV STA (01:47)
[2021-08-20] MEDS: INSULIN ASPART PER UNIT SC SCH ×5 (01:50→20:21)
[2021-08-20] MEDS: oxyCODONE HCL IR 5 MG TAB (IMMEDIATE RELEASE) PO PRN ×4 (01:54→20:23)
[2021-08-20 02:10] LABS: Hemoglobin 15.5 g/dL (14.0-18.0); Mean Corpuscular Hemoglobin 33.5 pg (25-34); Mean Corpuscular Volume 92.9 fL (80-100); RDW Coefficient of Variation 11.8 % (11.5-14.5); RDW Standard Deviation 39.8 fL (36.4-46.3); Red Blood Count 4.63 M/uL (4.7-6.1); White Blood Count 2.74 K/uL (4.8-10.8)
[2021-08-20 02:27] LABS: BUN Creatinine Ratio 8.3 (10-20); Calcium 8.1 mg/dl (8.5-10.1); Creatinine Clr Calc Pharmacy 119.3 ml/min; Est GFR (African American) 120.8 ml/min; Est GFR (Non-African American) 104.3 ml/min; Potassium 3.9 mmol/L (3.5-5.1)
[2021-08-20 02:59] LABS: Platelet Count 78 K/uL (130-400)
[2021-08-20 03:00] LABS: Basophils # (auto) 0.01 K/uL (0-0.2); Basophils % (auto) 0.4 %; Eosinophils # (auto) 0.06 K/uL (0-0.5); Eosinophils % (auto) 2.2 %; Lymphocytes # (auto) 1.04 K/uL (1.2-3.4); Monocytes # (auto) 0.25 K/uL (0.11-0.59); Monocytes % (auto) 9.1 %; Neutrophils # (auto) 1.38 K/uL (1.4-6.5); Neutrophils % (auto) 50.3 %; RBC Morphology Unremarkable
[2021-08-20] MEDS: LORazepam 1 MG/2 ML VIAL IV PRN ×4 (04:52→20:23)
[2021-08-20 06:01] LABS: Estimated Average Glucose 249 mg/dl; Hemoglobin A1C 10.3 % (4.5-5.6)
--- NOTE | 2021-08-20 07:40 | CT Scan Report ---
CT angio chest PE protocol, CT abd pelvis IV con only CT DOSE: 951.13 mGy.cm HISTORY: 45 years-old Male with PE, chest pain, n/v, L flank pain. Acute chest pain with shortness of breath, nausea, vomiting with left-sided flank pain. TECHNIQUE: Multiple CTA images of the chest were obtained after the intravenous administration of 120 ml Optiray. Coronal and sagittal MIPS were obtained from the axial data set and were submitted for review. All measurements were obtained according to NASCET criteria. CT abdomen and pelvis with IV c ontrast only was also obtained. A dose lowering technique was utilized adhering to the principles of ALARA. COMPARISON: CT abdomen and pelvis 05/30/2021, CTA chest 03/01/2018. FINDINGS: CTA: The heart is normal in size. There is no pericardial effusion. Mild coronary artery calcifications. N o thoracic aortic aneurysm or dissection. There is patency of the imaged great vessels. Suboptimal ev aluation of the pulmonary arterial tree secondary to contrast bolus timing with a moderate amount of mixing artifact present. No filling defects are identified to suggest thromboembolic disease. CT CHEST: No thyroid nodule or adenopathy. No pneumothorax, pleural effusion, airspace consolidation or overt p ulmonary edema. No suspicious pulmonary nodules or masses. Central airways are patent. Gynecomastia. Unremarkable soft tissues. No acute fracture. CT ABDOMEN AND PELVIS: There is no pneumatosis or pneumoperitoneum. Unremarkable spleen and adrenal glands. Cholecystectomy. Hepatic steatosis. Patent portal and splenic veins. Upper abdominal collateral vessels are similar t o prior. Moderately atrophic pancreas. Calcifications of the uncinate process pancreas are compatible with chronic pancreatitis. There is questioned interstitial edema of the pancreas. Unremarkable kidneys. No hydronephrosis. Prostamegaly. Urinary bladder wall thickening with perivesic ular stranding. No abdominal aortic aneurysm or adenopathy. Unremarkable IVC. No bowel obstruction or bowel wall thickening. Scattered small and large bowel air-fluid levels are noted. Appendectomy. No acute fracture. Discectomy with posterior interbody gayathri and screw fusion hardware noted at L4-S1. IMPRESSION: 1. No acute intrathoracic abnormality. No pulmonary emboli. 2. Evidence of chronic pancreatitis. Equivocal interstitial edema could be correlated with lipase lev el to exclude acute on chronic pancreatitis. 3. No bowel obstruction or bowel wall thickening. 4. Scattered large and small bowel air-fluid levels may be physiologic or represent a nonspecific ent eritis/diarrheal illness. 5. Cholecystectomy and appendectomy. 6. Hepatic steatosis. 7. Unchanged upper abdominal collateral vessels. ACT 112: Negative or not required by law. The above report was generated using voice recognition software. It may contain grammatical, syntax o r spelling errors. Electronically signed by: Timur Álvarez M.D. 08/20/2021 7:39 AM
[2021-08-20] MEDS ORDERED: INSULIN GLARGINE SOLOSTAR 100 UNITS/ML 3 ML PEN SC SCH (09:00)
[2021-08-20] MEDS: PANTOprazole 40 MG TAB PO SCH (09:23)
[2021-08-20] MEDS: GABAPENTIN 600 MG TAB PO SCH ×3 (09:23→20:22)
[2021-08-20] MEDS: PARoxetine HCL 20 MG TAB PO SCH (09:23)
--- NOTE | 2021-08-20 18:57 | Electrocardiogram Report ---
Test Reason : Blood Pressure : / mmHG Vent. Rate : 100 BPM Atrial Rate : 100 BPM P-R Int : 130 ms QRS Dur : 072 ms QT Int : 338 ms P-R-T Axes : 042 035 035 degrees QTc Int : 436 ms Poor data quality, interpretation may be adversely affected Normal sinus rhythm Normal ECG When compared with ECG of 30-MAY-2021 22:00, No significant change Confirmed by Sukhjinder Enciso ([id number]) on 08/20/2021 6:57:06 PM Referred By: REFERRED SELF Confirmed By:Sukhjinder Enciso
--- NOTE | 2021-08-20 23:49 | Communication Note ---
Date of Service: August 20, 2021 Pt was seen and examined. Lying in bed with no acute distress. Denies any hallucination. Pt said that he continues to have abdominal pain and nausea. CTA chest showed no acute intrathoracic abnormality. No pulmonary emboli. CT abd/pelvis showed evidence of chronic pancreatitis. Equivocal interstitial edema could be correlated with lipase level to exclude acute on chronic pancreatitis. Continue IVF and pain control. Will advandce diet as tolerated. Continue Gabapentin and Ativan for alcohol withdrawal protocol. Monitor Electrolytes MD Carlos
[2021-08-21] MEDS: oxyCODONE HCL IR 5 MG TAB (IMMEDIATE RELEASE) PO PRN ×5 (03:25→21:32)
[2021-08-21] MEDS: LORazepam 1 MG/2 ML VIAL IV PRN ×2 (03:25→12:38)
[2021-08-21] MEDS: GABAPENTIN 600 MG TAB PO SCH ×2 (03:26→12:38)
[2021-08-21] MEDS: PARoxetine HCL 20 MG TAB PO SCH (07:27)
[2021-08-21] MEDS: MULTIVITAMIN TAB PO SCH (07:27)
[2021-08-21] MEDS: FOLIC ACID 1 MG TAB PO SCH (07:27)
[2021-08-21] MEDS: THIAMINE HCL 100 MG TAB PO SCH (07:27)
[2021-08-21] MEDS: PANTOprazole 40 MG TAB PO SCH (07:27)
[2021-08-21] MEDS: INSULIN ASPART PER UNIT SC SCH ×4 (09:02→21:32)
[2021-08-21] MEDS: INSULIN GLARGINE SOLOSTAR 100 UNITS/ML 3 ML PEN SC SCH (09:02)
[2021-08-21] MEDS ORDERED: PROMETHAZINE HCL 25 MG TAB PO PRN (11:02)
--- NOTE | 2021-08-22 00:14 | Hospitalist Progress Note ---
Date of Service August 21, 2021 Assessment & Plan (1) Abdominal pain: Plan: Present on admission with abdominal pain associated with nausea and vomiting Possible relating to chronic pancreatitis due to alcohol abuse CT abd/pelvis showed evidence of chronic pancreatitis. Equivocal interstitial edema could be correlated with lipase level to exclude acute on chronic pancreatitis. Lipase on admission 12 Continue pain control (Judiciously given narcotic abuse) and antiemetic Tolerated diet (2) Alcohol withdrawal: Plan: Alcohol level 171 Continue alcohol withdrawal protocol with gabapentin and Ativan Continue thiamine, folic acid Monitor for sign of withdrawal Counseling for alcohol abuse COVID 19 Testing positive for COVID 19 CXR showed showed no active disease in the chest. CTA chest showed no acute intrathoracic abnormality. No pulmonary emboli. Asymptomatic Transaminitis Possible related to Alcohol abuse Will monitor LFT Thrombocytopenia Moslty related to alcohol abuse Plt 74 No active sign of bleeding Continue monitor CBC H/O Chronic pain/narcotic abuse As per records/terminated medication agreement Counseling DM II Not on meds due to noncompliance as per records HbA1c of 10.3 Continue Insulin therapy with sliding scale during hospital course Was on glipizide XL 5 mg previously, will advise him to resume ADD/mood disorder Continue home meds H/O PE Not on anticoagulation secondary to alcoholism GERD/Renae's esophagus Continue PPI DVT Px on SCD due to thrombocytopenia Code Status Full code Admission and Anticipated Discharge Date Admission Date: August 20, 2021 Subjective Pt was seen and examined for follow up of abdominal pain and alcohol withdrawal Lying in bed with no acute distress eating his meal Pt said that he continues to have pain and asking for more pain med Nurse said that pt usually fell asleep after receiving the narcotic He said that his last drink was last monday It seems like he tolerated diet well Denies any chest pain, palpitation, dizziness and SOB Review of Systems Review of Systems: All systems reviewed & are unremarkable except as noted in Subjective Physical Exam Physical Exam: General- No acute distress Head- atraumatic Eyes- PERRL, EOMI, ENT- oropharynx clear Neck- supple, no JVD Lungs- clear to auscultation Heart- regular rhythm; no murmur Abdomen- normal bowel sounds, soft, +tender Extremities- no calf tenderness Neuro- alert, oriented x 3; PERRL, EOMI; no facial palsy; no dysarthria, Mild tremor Skin- warm & dry Results & Data Results & Data ([facility]) Vital Signs (Past 12 Hours) Vital Signs Temp Pulse Pulse Resp BP BP Pulse Ox 08/21/21 23:03 36.9 C 99 H 18 108/71 97 08/21/21 22:20 86 08/21/21 19:12 36.9 C 93 H 18 112/71 97 08/21/21 18:19 96 H 08/21/21 16:12 36.4 C L 81 20 102/99 97 (1) Abdominal pain Abdominal location: upper abdomen, unspecified Qualified Code(s): R10.10 - Upper abdominal pain, unspecified
[2021-08-22] MEDS: GABAPENTIN 600 MG TAB PO SCH ×2 (01:36→14:08)
[2021-08-22] MEDS: oxyCODONE HCL IR 5 MG TAB (IMMEDIATE RELEASE) PO PRN ×3 (01:36→11:56)
[2021-08-22] MEDS: INSULIN ASPART PER UNIT SC SCH ×2 (08:01→11:59)
[2021-08-22] MEDS: INSULIN GLARGINE SOLOSTAR 100 UNITS/ML 3 ML PEN SC SCH (08:02)
[2021-08-22] MEDS: PARoxetine HCL 20 MG TAB PO SCH (08:02)
[2021-08-22] MEDS: FOLIC ACID 1 MG TAB PO SCH (08:02)
[2021-08-22] MEDS: THIAMINE HCL 100 MG TAB PO SCH (08:02)
[2021-08-22] MEDS: PANTOprazole 40 MG TAB PO SCH (08:02)
[2021-08-22] MEDS: MULTIVITAMIN TAB PO SCH (08:03)
[2021-08-22 11:06] LABS: Hematocrit (blood only) 47.7 % (42-52); Hemoglobin 16.9 g/dL (14.0-18.0); Mean Corpuscular Hemoglobin 33.1 pg (25-34); Mean Corpuscular Hgb Conc 35.4 g/dL (32-36); Mean Corpuscular Volume 93.5 fL (80-100); RDW Coefficient of Variation 11.6 % (11.5-14.5); White Blood Count 2.85 K/uL (4.8-10.8)
[2021-08-22 11:33] LABS: Mean Platelet Volume 9.8 fL (7.4-10.4); Platelet Count 77 K/uL (130-400)
[2021-08-22 11:37] LABS: Albumin Globulin Ratio 1.1 (0.9-2); Albumin Level 3.5 gm/dl (3.4-5.0); BUN Creatinine Ratio 7.4 (10-20); Bilirubin,Total 0.5 mg/dl (0.2-1.0); Calcium 9.3 mg/dl (8.5-10.1); Creatinine Clr Calc Pharmacy 114.2 ml/min; Est GFR (Non-African American) 94.9 ml/min; Globulin 3.2 gm/dl (2.5-4.0); Potassium 4.2 mmol/L (3.5-5.1); Total Protein 6.7 gm/dl (6.0-8.3)
[2021-08-22 15:13] VITALS: BP 109/71; PULSE 81; TEMP 98.4; O2SAT 97
--- NOTE | 2021-08-22 16:41 | Discharge Summary ---
Date of Service August 22, 2021 Admission HPI Per Admitting Provider History is obtained from the patient and records. Medical history is significant for ADD/mood disorder as per records, DM2, medication noncompliance, GERD/Renae's esophagus, recurrent alcoholic pancreatitis, hx PE as per records, history of chronic pain. hx narcotic abuse as per records/terminated medication agreement, chronic thrombocytopenia. Last confinement March 2021 for recurrent alcoholic pancreatitis. Patient discharged on glipizide for his diabetes. Patient admits to not taking glipizide for long because it was not controlling his sugars at home. Few days history of cough productive of white sputum, achy chest pain with shortness of breath, left-sided abdominal/flank pain with nausea emesis watery diarrhea. Some chills. Achy headache symptoms from coughing and being sick as per patient. No known recent COVID-19 contacts. Patient has not received COVID-19 vaccination. Started drinking alcohol again because he could not get comfortable. Patient admits to jittery symptoms, withdrawal possibly starting as per patient. Patient consulted ER for worsening symptoms. MEDICAL HISTORY: As above. SURGERIES: Appendectomy, cholecystectomy, vascular device placement. back surgery FAMILY HISTORY: mood disorder. Alcoholism, heart disease. 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 Admission Exam Per Admitting Provider GENERAL: Comfortable, no respiratory distress SKIN: Normal color, warm HEENT: Alopecia, Protection palpebral conjunctivae, no ptosis, dry buccal mucosa, poor dentition NECK : Supple, short neck, no tenderness CHEST : CTA, no tenderness HEART : RRR, no obvious murmurs ABDOMEN: Some distention, left-sided abdominal tenderness EXTREMITIES : No LE swelling/tenderness, no other conspicuous deformities noted NEUROLOGIC : Coherent, no facial asymmetry, no other gross focality Principal Diagnosis Abdominal pain: Alcohol withdrawal: COVID 19 Transaminitis Thrombocytopenia H/O Chronic pain/narcotic abuse Diabetes type 2 Discharge Exam General- No acute distress Head- atraumatic Eyes- PERRL, EOMI, ENT- oropharynx clear Neck- supple, no JVD Lungs- clear to auscultation Heart- regular rhythm; no murmur Abdomen- normal bowel sounds, soft, +tender Extremities- no calf tenderness Neuro- alert, oriented x 3; PERRL, EOMI; no facial palsy; no dysarthria, Mild tremor Skin- warm & dry Discharge Data Allergies Allergy/AdvReac Type Severity Reaction Status Date / Time No Known Allergies Allergy Verified 08/19/21 21:59 Consultations 08/20/21 00:45 ED Decision to Admit Stat Ordered Studies 08/19/21 21:03 CT abd pelvis IV con only Urgent CT angio chest PE protocol Urgent CT angio chest PE protocol, CT abd pelvis IV con only CT DOSE: 951.13 mGy.cm HISTORY: 45 years-old Male with PE, chest pain, n/v, L flank pain. Acute chest pain with shortness of breath, nausea, vomiting with left-sided flank pain. TECHNIQUE: Multiple CTA images of the chest were obtained after the intravenous administration of 120 ml Optiray. Coronal and sagittal MIPS were obtained from the axial data set and were submitted for review. All measurements were obtained according to NASCET criteria. CT abdomen and pelvis with IV contrast only was also obtained. A dose lowering technique was utilized adhering to the principles of ALARA. COMPARISON: CT abdomen and pelvis 05/30/2021, CTA chest 03/01/2018. FINDINGS: CTA: The heart is normal in size. There is no pericardial effusion. Mild coronary artery calcifications. No thoracic aortic aneurysm or dissection. There is patency of the imaged great vessels. Suboptimal evaluation of the pulmonary arterial tree secondary to contrast bolus timing with a moderate amount of mixing artifact present. No filling defects are identified to suggest thromboembolic disease. CT CHEST: No thyroid nodule or adenopathy. No pneumothorax, pleural effusion, airspace consolidation or overt pulmonary edema. No suspicious pulmonary nodules or masses. Central airways are patent. Gynecomastia. Unremarkable soft tissues. No acute fracture. CT ABDOMEN AND PELVIS: There is no pneumatosis or pneumoperitoneum. Unremarkable spleen and adrenal glands. Cholecystectomy. Hepatic steatosis. Patent portal and splenic veins. Upper abdominal collateral vessels are similar to prior. Moderately atrophic pancreas. Calcifications of the uncinate process pancreas are compatible with chronic pancreatitis. There is questioned interstitial edema of the pancreas. Unremarkable kidneys. No hydronephrosis. Prostamegaly. Urinary bladder wall thickening with perivesicular stranding. No abdominal aortic aneurysm or adenopathy. Unremarkable IVC. No bowel obstruction or bowel wall thickening. Scattered small and large bowel air-fluid levels are noted. Appendectomy. No acute fracture. Discectomy with posterior interbody gayathri and screw fusion hardware noted at L4-S1. IMPRESSION: 1. No acute intrathoracic abnormality. No pulmonary emboli. 2. Evidence of chronic pancreatitis. Equivocal interstitial edema could be correlated with lipase level to exclude acute on chronic pancreatitis. 3. No bowel obstruction or bowel wall thickening. 4. Scattered large and small bowel air-fluid levels may be physiologic or represent a nonspecific enteritis/diarrheal illness. 5. Cholecystectomy and appendectomy. 6. Hepatic steatosis. 7. Unchanged upper abdominal collateral vessels. ACT 112: Negative or not required by law. The above report was generated using voice recognition software. It may contain grammatical, syntax or spelling errors. Electronically signed by: Timur Álvarez M.D. 08/20/2021 7:39 AM Dictated:08/20/21 0726 Transcribed: 08/20/[address] angio chest PE protocol, CT abd pelvis IV con only CT DOSE: 951.13 mGy.cm HISTORY: 45 years-old Male with PE, chest pain, n/v, L flank pain. Acute chest pain with shortness of breath, nausea, vomiting with left-sided flank pain. TECHNIQUE: Multiple CTA images of the chest were obtained after the intravenous administration of 120 ml Optiray. Coronal and sagittal MIPS were obtained from the axial data set and were submitted for review. All measurements were obtained according to NASCET criteria. CT abdomen and pelvis with IV contrast only was also obtained. A dose lowering technique was utilized adhering to the principles of ALARA. COMPARISON: CT abdomen and pelvis 05/30/2021, CTA chest 03/01/2018. FINDINGS: CTA: The heart is normal in size. There is no pericardial effusion. Mild coronary artery calcifications. No thoracic aortic aneurysm or dissection. There is patency of the imaged great vessels. Suboptimal evaluation of the pulmonary arterial tree secondary to contrast bolus timing with a moderate amount of mixing artifact present. No filling defects are identified to suggest thromboembolic disease. CT CHEST: No thyroid nodule or adenopathy. No pneumothorax, pleural effusion, airspace consolidation or overt pulmonary edema. No suspicious pulmonary nodules or masses. Central airways are patent. Gynecomastia. Unremarkable soft tissues. No acute fracture. CT ABDOMEN AND PELVIS: There is no pneumatosis or pneumoperitoneum. Unremarkable spleen and adrenal glands. Cholecystectomy. Hepatic steatosis. Patent portal and splenic veins. Upper abdominal collateral vessels are similar to prior. Moderately atrophic pancreas. Calcifications of the uncinate process pancreas are compatible with chronic pancreatitis. There is questioned interstitial edema of the pancreas. Unremarkable kidneys. No hydronephrosis. Prostamegaly. Urinary bladder wall thickening with perivesicular stranding. No abdominal aortic aneurysm or adenopathy. Unremarkable IVC. No bowel obstruction or bowel wall thickening. Scattered small and large bowel air-fluid levels are noted. Appendectomy. No acute fracture. Discectomy with posterior interbody gayathri and screw fusion hardware noted at L4-S1. IMPRESSION: 1. No acute intrathoracic abnormality. No pulmonary emboli. 2. Evidence of chronic pancreatitis. Equivocal interstitial edema could be correlated with lipase level to exclude acute on chronic pancreatitis. 3. No bowel obstruction or bowel wall thickening. 4. Scattered large and small bowel air-fluid levels may be physiologic or represent a nonspecific enteritis/diarrheal illness. 5. Cholecystectomy and appendectomy. 6. Hepatic steatosis. 7. Unchanged upper abdominal collateral vessels. ACT 112: Negative or not required by law. The above report was generated using voice recognition software. It may contain grammatical, syntax or spelling errors. Electronically signed by: Timur Álvarez M.D. 08/20/2021 7:39 AM Dictated:08/20/21725 Transcribed: 08/20/21 0732 SINGLE VIEW CHEST CLINICAL HISTORY: Atypical chest pain FINDINGS: 2 AP, portable, upright chest radiographs compared to study dated 03/20/2021. The cardiomediastinal silhouette is unremarkable. The lungs and pleural spaces are clear. No pneumothorax is seen. The bony thorax is grossly intact. Cholecystectomy clips are noted in the right upper quadrant. IMPRESSION: No active disease in the chest. ACT 112: Negative or not required by law. Electronically signed by: Kareem Rivas M.D. 08/19/2021 8:24 PM Dictated:08/19/212023 Transcribed: 08/19/212023 Diabetes Follow up Diabetes Follow-up Needed for HgbA1c >9% Hospital Course (1) Abdominal pain: Present on admission with abdominal pain associated with nausea and vomiting Possible relating to chronic pancreatitis due to alcohol abuse CT abd/pelvis showed evidence of chronic pancreatitis. Equivocal interstitial edema could be correlated with lipase level to exclude acute on chronic pancreatitis. Lipase on admission 12 Continue pain control (Judiciously given narcotic abuse) and antiemetic Tolerated diet Clinically improved significantly (2) Alcohol withdrawal: Alcohol level 171 Pt said that last drink was about 1 week ago. Doubt it since alcohol level on admission elevated Continue alcohol withdrawal protocol with gabapentin and Ativan Continue thiamine, folic acid Monitor for sign of withdrawal Counseling for alcohol abuse Refused to go to alcohol rehab COVID 19 Testing positive for COVID 19 CXR showed showed no active disease in the chest. CTA chest showed no acute intrathoracic abnormality. No pulmonary emboli. Asymptomatic Transaminitis Possible related to Alcohol abuse On admission AST 95 then dropped to 61 and ALT 100 then 83 today Check LFT in 1 week Thrombocytopenia Moslty related to alcohol abuse Plt 77 today No active sign of bleeding Continue monitor CBC H/O Chronic pain/narcotic abuse As per records/terminated medication agreement Counseling on narcotic use DM II Not on med due to noncompliance as per records HbA1c of 10.3 Continue Insulin therapy with sliding scale during hospital course Pt was discharge in the past on Glipizide/metformin, but never took the me dication Discussed with patient about the important to take the medications for the diabetes since hemoglobin A1C is very high. Pt understood that uncontrolled diabetes can lead to diabetes complications such as renal failure that can lead to dialysis, heart attack, blindness, stroke, erectile dysfunction, limbs amputation.... ) Follow up a healthy diabetes diet and limited concentrated sweet intake Will resume glipizide and Metformin on discharge Check Hba1c in 3-4 months ADD/mood disorder Continue paroxetine stable H/O PE Not on anticoagulation secondary to alcoholism GERD/Renae's esophagus Continue PPI DVT Px on SCD due to thrombocytopenia Code Status Full code Total Time Total Time Spent Total Time Spent (In Minutes): 35 minutes Discharge Plan Discharge Items Patient Disposition: Home - Self-Care Reason For Visit: ETOH WITHDRAWAL, MILD DKA, COVID Discharge Diagnosis: Abdominal pain: Alcohol withdrawal: COVID 19 Transaminitis Thrombocytopenia H/O Chronic pain/narcotic abuse Diabetes type 2 Activity: Resume your previous activity Non-emergency contact: Primary Care Provider Call non-emergency contact if: you have any medication questions and your symptoms worsen Follow-up/Referrals: Dhiraj Myers, DO [Primary Care Provider] - Diet: Carb Consistent or DM2 Addtl Attending Provider Instructions: Follow up with your primary care provider within 1 week Counseling on alcohol cessation Consider inpatient alcohol rehab Check LFT in 1-2 week to monitor your liver function It is very important to take your medications for the diabetes since your hemoglobin A1C is very high. (Uncontrolled diabetes can lead to diabetes complications such as renal failure that can lead to dialysis, heart attack, blindness, stroke, erectile dysfunction,..... ) Follow up a healthy diabetes diet and limited concentrated sweet intake Pending Studies at Discharge: No Stand-Alone Forms: [facility], Smoking Cessation Medications and DC Order Prescriptions: New glipizide 5 mg tablet extended release 24 hr 5 mg PO DAILY Qty: 30 RF: 0 folic acid 1 mg Tablet 1 mg PO QAM Qty: 30 RF: 0 thiamine HCl (vitamin B1) 100 mg Tablet 100 mg PO QAM Qty: 30 RF: 0 ondansetron HCl 4 mg tablet 4 mg PO Q8H Qty: 20 RF: 0 metformin 500 mg tablet 500 mg PO DAILY Qty: 60 RF: 0 Continued paroxetine HCl 20 mg tablet 20 mg PO QAM RF: 0 pantoprazole 40 mg Tablet,Delayed Release (Dr/Ec) 40 mg PO QAM Qty: 30 RF: 0 Discharge Orders: Discharge Order (Routine); Ordered 08/22/21 Ordered By: Beau Gonzalez Admission Data Admit Date/Time: 08/20/21 01:40 Attending Provider: Beau Gonzalez Admit Provider: Beau Gonzalez Primary Care Provider: Dhiraj Myers Other Providers: [employer] [facility]
[2021-08-23] MEDS ORDERED: GABAPENTIN 600 MG TAB PO SCH (13:45)
== END 2021-08-22 17:00 | disposition home or self-care (01) | DRG 896 ==
LOC: ED 19:48 → EDINP 08-20 01:40 → SUATTDRO 08-20 01:40 → 2W 08-20 02:42
DX: Y90.9 Presence of alcohol in blood, level not specified; M79.10 Myalgia, unspecified site; F11.11 Opioid abuse, in remission; F41.0 Panic disorder [episodic paroxysmal anxiety]; R10.12 Left upper quadrant pain; R74.01 Elevation of levels of liver transaminase levels; Z86.711 Personal history of pulmonary embolism; F10.139 Alcohol abuse with withdrawal, unspecified; Z79.899 Other long term (current) drug therapy; Z81.1 Family history of alcohol abuse and dependence; F90.9 Attention-deficit hyperactivity disorder, unspecified type; E11.10 Type 2 diabetes mellitus with ketoacidosis without coma; F32.A Depression, unspecified; Z91.128 Patient's intentional underdosing of medication regimen for other reason; K22.70 Barrett's esophagus without dysplasia; K21.9 Gastro-esophageal reflux disease without esophagitis; D69.59 Other secondary thrombocytopenia; R51.9 Headache, unspecified; G89.29 Other chronic pain; K86.0 Alcohol-induced chronic pancreatitis; E11.40 Type 2 diabetes mellitus with diabetic neuropathy, unspecified; U07.1 COVID-19; E86.0 Dehydration; R11.2 Nausea with vomiting, unspecified

== ENCOUNTER 2022-02-07 17:00 | Inpatient (IN) ==
--- NOTE | 2022-02-07 17:08 | Emergency Department Note ---
History of Present Illness General Chief complaint: Abdominal Pain Time Seen by Provider: 02/07/22 17:00 History of Present Illness This is a 46-year-old male that presents to the emergency department via EMS with complaints of "abdominal pain". Patient has a history of chronic pancreatitis. He notes that he has been hospitalized about 12-15 times over the past few years for similar. He notes that he over the past 4 months had stopped drinking alcohol but recently began drinking alcohol again. He notes that he drank alcohol yesterday as well as this morning. He notes about 2 hours prior to arrival he began with left upper quadrant/epigastric abdominal discomfort that radiates into his back with associated waves of chest pain. He notes this is identical to previous exacerbations of his underlying pancreatitis. Prehospital pain 07/16 but in route received IV Toradol, IV fentanyl and IV Zofran. Per supervisor elementary education at bedside he received 30 mg of IV Toradol, 50 mcg of IV fentanyl, 4 mg of IV Zofran. The patient rates his current discomfort as an - 04/2010. He had associated nausea and vomiting. Home Medications Medication Instructions Recorded Confirmed Type paroxetine HCl 20 mg tablet 20 mg PO QAM 12/20/19 02/07/22 History pantoprazole 40 mg tablet,delayed 40 mg PO QAM #30 tab 03/01/21 02/07/22 Rx release ondansetron HCl 4 mg tablet 4 mg PO Q8H PRN 02/07/22 02/07/22 History Allergies Allergy/AdvReac Type Severity Reaction Status Date / Time No Known Allergies Allergy Verified 02/07/22 18:02 Past Med/Surg History Medical History (Updated 02/07/22 @ 20:44 by Alberto Rivera PA-C) Abdominal pain Abdominal pain Acute hyperglycemia Alcohol abuse (Unknown) Alcohol abuse Alcoholic ketosis Renae's esophagus (Unknown) "per EGD 11/23/09 " On 05/31/11 09:06 Martinez Jose wrote "per EGD 11/23/09 " Chest pain COVID-19 Depression Depression DM type 2 (diabetes mellitus, type 2) Encounter for alcohol abuse counseling and surveillance Encounter for pre-operative examination Encounter for tobacco use cessation counseling H/O acute pancreatitis "recurrent" History of substance abuse Hyperglycemia Intentional drug overdose Lumbar degenerative disc disease Mood disorder Mood disorder Nausea & vomiting Neuropathy Pancreatitis Panic disorder Pulmonary embolism Suicidal ideation Suicidal ideation Suicide attempt Surgical History H/O esophagogastroduodenoscopy "EGD 11/23/2009- mild gastritis, suspicious for gastroparesis, Z-line irregular EUS 02/04/2010- mild chronic pancreatitis, pronounced cholesterolosis of gallbladder, no biliary dilation or stones, probable gastroparesis EGD 10/31/2014- gastritis" S/P lumbar fusion L4-S1 2014 Family History Father Alcohol abuse Social History Smoking Status: Current every day smoker Tobacco Type: Smokeless Tobacco (Dip or Chew) Second Hand Exposure: No; Hx Alcohol Use: Yes Alcohol type: beer Hx Substance Use: No Preferred Language: [place] Communication Ability: Effective Automated Process Operator Required: No Beliefs That Will Affect Care: None marital status: Current Living Situation: Parent Current Living Situation Comment: Lives with Viki Dang Feels Safe at Home: Yes Assistive Devices: None Review of Systems A total of 10 systems reviewed and were otherwise negative Physical Exam Vital Signs Vital Signs - 24 hr 02/07/22 17:13 02/07/22 17:15 02/07/22 17:23 Temperature 37.1 C Temperature Source Oral Pulse Rate 105 H Pulse Rate [Right Finger] 103 H Pulse Rhythm [Right Finger] Pulse Strength [Right Finger] Respiratory Rate 18 18 Respiratory Effort / Characteristics Non-Labored Respiratory Depth Normal Respiratory Pattern Blood Pressure [Left Arm] 126/82 Blood Pressure Mean [Left Arm] 96 Blood Pressure Position [Left Arm] Sitting Pulse Oximetry 98 97 Oxygen Delivery Method Room Air Room Air Sepsis New/Unexplained Change in Mental Status No Sepsis Action Taken by Nursing No Action Required 02/07/22 19:13 Temperature Temperature Source Pulse Rate Pulse Rate [Right Finger] 105 H Pulse Rhythm [Right Finger] Regular Pulse Strength [Right Finger] Normal Respiratory Rate 18 Respiratory Effort / Characteristics Non-Labored Respiratory Depth Normal Respiratory Pattern Regular Blood Pressure [Left Arm] 122/84 Blood Pressure Mean [Left Arm] 96 Blood Pressure Position [Left Arm] Lying Pulse Oximetry 98 Oxygen Delivery Method Room Air Sepsis New/Unexplained Change in Mental Status Sepsis Action Taken by Nursing VITAL SIGNS - Vital signs and nursing notes were reviewed. Stable and afebrile. GENERAL -46-year-old male appearing his stated age who is in no acute distress. Communicates well with provider and answers questions appropriately. SKIN - Without rashes. No meningeal or petechial rash. HEAD - NC/AT. EYES - PERRL with EOMI bilaterally. Sclera anicteric. EARS - No deformities of external structures noted on gross examination bilaterally. NOSE - Midline and without cyanosis. No epistaxis or purulent drainage noted. MOUTH/OROPHARYNX - Without perioral cyanosis. NECK - Neck with FROM. No nuchal rigidity. LUNGS - Chest wall symmetric without accessory muscle use, intercostals retractions, or central cyanosis. Normal vesicular breath sounds CTA B/L. No wheezes, rales, or rhonchi appreciated. CARDIAC - RRR with S1/S2. No murmur, rubs, or gallops appreciated. ABDOMEN - Abdominal contour normal without pulsations or visible masses. BS normoactive all four quadrants. Epigastric/left upper quadrant abdominal tenderness to palpation. No palpable masses, hepatosplenomegaly, or ascites noted. EXTREMITIES - No clubbing or peripheral cyanosis. PSYCH - A&Ox3 and cooperates fully with examiner. Pt is very pleasant and interacts well with examiner. Course Administered Medications Magnesium Sulfate/Dextrose (Magnesium Sulfate / D5w) 1 gm in 100 mls @ 50 mls/hr IV ONE ONE Stop: 02/07/22 21:21 Last Admin: 02/07/22 19:56 Dose: 50 mls/hr Documented by: [id number] Discontinued Medications Gabapentin (Gabapentin 600 Mg Tab) 1,200 mg PO NOW STA Stop: 02/07/22 19:45 Last Admin: 02/07/22 19:56 Dose: 1,200 mg Documented by: [id number] Hydromorphone HCl (Hydromorphone Inj 0.5 Mg/0.5 Ml Syr) 0.5 mg IV NOW STA Stop: 02/07/22 19:02 Last Admin: 02/07/22 19:12 Dose: 0.5 mg Documented by: [id number] Sodium Chloride (Nss 1000ml) 1,000 mls @ 999 mls/hr IV .Q1H1M RAMOS Stop: 02/07/22 18:15 Last Infusion: 02/07/22 18:46 Dose: 0 mls/hr Documented by: [id number] Admin: 02/07/22 17:32 Dose: 999 mls/hr Documented by: [id number] Famotidine (Pepcid 20mg Iv Push) 20 mg in 5 mls @ 2.5 mls/min IV NOW STA Stop: 02/07/22 17:13 Last Admin: 02/07/22 17:31 Dose: 2.5 mls/min Documented by: [id number] Thiamine HCl 100 mg/ Syringe 10 mls @ 2 mls/min IV 1945 ONE Stop: 02/07/22 19:49 Last Admin: 02/07/22 19:57 Dose: 2 mls/min Documented by: [id number] Morphine Sulfate (Morphine Sulfate 4 Mg/Ml 1 Ml Carp\\Vial) 4 mg IV NOW STA Stop: 02/07/22 17:13 Last Admin: 02/07/22 17:31 Dose: 4 mg Documented by: [id number] Ondansetron HCl (Ondansetron Inj 2 Mg/Ml 2 Ml Vial) 4 mg IV NOW STA Stop: 02/07/22 19:19 Last Admin: 02/07/22 19:56 Dose: 4 mg Documented by: [id number] Medical Decision Making Laboratory Data Result diagrams: 02/07/22 17:35 02/07/22 17:35 Lab Results 02/07/22 02/07/22 02/07/22 Range/Units 16:45 17:35 17:35 WBC 7.18 (4.8-10.8) K/uL RBC 4.73 (4.7-6.1) M/uL Hgb 15.7 (14.0-18.0) g/dL Hct 44.2 (42-52) % MCV 93.4 D (80-100) fL MCH 33.2 (25-34) pg MCHC 35.5 (32-36) g/dL RDW Std Deviation 41.3 (36.4-46.3) fL RDW Coeff of Gucci 12.1 (11.5-14.5) % Plt Count 150 (130-400) K/uL MPV 9.4 (7.4-10.4) fL Immature Gran % (Auto) 0.1 % Neut % (Auto) 82.4 % Lymph % (Auto) 14.3 % [place] % (Auto) 2.4 % Eos % (Auto) 0.7 % Baso % (Auto) 0.1 % Neut # (Auto) 5.91 (1.4-6.5) K/uL Lymph # (Auto) 1.03 L (1.2-3.4) K/uL [place] # (Auto) 0.17 (0.11-0.59) K/uL Eos # (Auto) 0.05 (0-0.5) K/uL Baso # (Auto) 0.01 (0-0.2) K/uL Immature Gran # (Auto) 0.01 (0.00-0.02) K/uL PT (9.0-12.0) Seconds INR (0.9-1.1) Sodium 134 L (136-145) mmol/L Potassium 3.9 (3.5-5.1) mmol/L Chloride 98 (98-107) mmol/L Carbon Dioxide 20 L (21-32) mmol/L Anion Gap 16 H (3-11) BUN 8 (6-23) mg/dl Creatinine 0.81 (0.6-1.4) mg/dl Est Cr Clr Drug Dosing 136.0 ml/min Est GFR ( Amer) 121.8 ml/min Est GFR (Non-Af Amer) 105.1 ml/min BUN/Creatinine Ratio 9.9 L (10-20) Glucose 251 H (70-99(Fasting)) mg/dl Calcium 9.8 (8.5-10.1) mg/dl Magnesium 1.8 (1.7-2.4) mg/dl Total Bilirubin 1.2 H (0.2-1.0) mg/dl AST 104 H (13-39) U/L ALT 97 H (7-52) U/L Alkaline Phosphatase 83 (34-104) U/L Troponin I High Sens 2.7 (0-20) pg/ml Total Protein 7.5 (6.0-8.3) gm/dl Albumin 3.9 (3.4-5.0) gm/dl Globulin 3.6 (2.5-4.0) gm/dl Albumin/Globulin Ratio 1.1 (0.9-2) Amylase 182 H (25-115) U/L Lipase 627 H (11-82) U/L Urine Color Urine Appearance (Clear) Urine pH (4.5-7.5) Ur Specific [place] (1.000-1.030) Urine Protein (Negative) Urine Glucose (UA) (Negative) Urine Ketones (Negative) Urine Blood (Negative) Urine Nitrite (Negative) Urine Bilirubin (Negative) Urine Urobilinogen (Negative) Ur Leukocyte Esterase (Negative) Urine WBC (Auto) (0-5) /hpf Urine RBC (Auto) (0-4) /hpf U Hyaline Cast (Auto) (0-5) /lpf U Epithel Cells (Auto) (0-5) /lpf Urine Bacteria (Auto) (Negative) SARS-CoV-2, RNA, NAAT NEGATIVE (NEGATIVE) 02/07/22 02/07/22 Range/Units 17:35 18:40 WBC (4.8-10.8) K/uL RBC (4.7-6.1) M/uL Hgb (14.0-18.0) g/dL Hct (42-52) % MCV (80-100) fL MCH (25-34) pg MCHC (32-36) g/dL RDW Std Deviation (36.4-46.3) fL RDW Coeff of Gucci (11.5-14.5) % Plt Count (130-400) K/uL MPV (7.4-10.4) fL Immature Gran % (Auto) % Neut % (Auto) % Lymph % (Auto) % [place] % (Auto) % Eos % (Auto) % Baso % (Auto) % Neut # (Auto) (1.4-6.5) K/uL Lymph # (Auto) (1.2-3.4) K/uL [place] # (Auto) (0.11-0.59) K/uL Eos # (Auto) (0-0.5) K/uL Baso # (Auto) (0-0.2) K/uL Immature Gran # (Auto) (0.00-0.02) K/uL PT 10.7 (9.0-12.0) Seconds INR 1.0 (0.9-1.1) Sodium (136-145) mmol/L Potassium (3.5-5.1) mmol/L Chloride (98-107) mmol/L Carbon Dioxide (21-32) mmol/L Anion Gap (3-11) BUN (6-23) mg/dl Creatinine (0.6-1.4) mg/dl Est Cr Clr Drug Dosing ml/min Est GFR ( Amer) ml/min Est GFR (Non-Af Amer) ml/min BUN/Creatinine Ratio (10-20) Glucose (70-99(Fasting)) mg/dl Calcium (8.5-10.1) mg/dl Magnesium (1.7-2.4) mg/dl Total Bilirubin (0.2-1.0) mg/dl AST (13-39) U/L ALT (7-52) U/L Alkaline Phosphatase (34-104) U/L Troponin I High Sens (0-20) pg/ml Total Protein (6.0-8.3) gm/dl Albumin (3.4-5.0) gm/dl Globulin (2.5-4.0) gm/dl Albumin/Globulin Ratio (0.9-2) Amylase (25-115) U/L Lipase (11-82) U/L Urine Color Yellow Urine Appearance Clear (Clear) Urine pH 5.0 (4.5-7.5) Ur Specific [place] > 1.045 H (1.000-1.030) Urine Protein 1+ H (Negative) Urine Glucose (UA) 3+ H (Negative) Urine Ketones 3+ H (Negative) Urine Blood Negative (Negative) Urine Nitrite Negative (Negative) Urine Bilirubin Negative (Negative) Urine Urobilinogen Negative (Negative) Ur Leukocyte Esterase Negative (Negative) Urine WBC (Auto) 0 (0-5) /hpf Urine RBC (Auto) 0-4 (0-4) /hpf U Hyaline Cast (Auto) 1-5 (0-5) /lpf U Epithel Cells (Auto) 5-10 H (0-5) /lpf Urine Bacteria (Auto) Negative (Negative) SARS-CoV-2, RNA, NAAT (NEGATIVE) Imaging Data Radiologist's Impression: KUB X-Ray 02/07/22 17:11 KUB HISTORY: Acute epigastric abdominal pain Epigastric/LUQ abd pain COMPARISON: CT abdomen and pelvis 08/19/2021 FINDINGS: Obstructive bowel gas pattern. Cholecystectomy. The renal shadows are partially obscured by bowel gas. Pelvic basin phleboliths. Mild fecal retention. Air- filled loops of small bowel within left midabdomen measuring up to 2.6 cm transversely likely physiologic. No renal calculi. No ureteral calculi. No pneumoperitoneum or pneumatosis. Lower lumbar spine fusion hardware with discectomy. No fracture. IMPRESSION: Nonobstructive bowel gas pattern. ACT 112: Negative or not required by law. The above report was generated using voice recognition software. It may contain grammatical, syntax or spelling errors. Electronically signed by: Timur Álvarez M.D. 02/07/2022 7:05 PM Pancreas Ultrasound 02/07/22 17:11 US pancreas HISTORY: 46 years-old Male Epigastric/LUQ abd pain . Acute epigastric and left upper quadrant abdominal pain COMPARISON: CT study 08/19/2021 TECHNIQUE: Multiple real-time sonographic images of the right upper quadrant abdomen were obtained assessing grayscale appearance and color flow FINDINGS: Hepatic steatosis. No evidence of cirrhosis or hepatic mass. Liver appears prominent in size. Cholecystectomy. The common bile duct is slightly dilated at 6.5 mm, likely postsurgical. No intrahepatic biliary ductal dilation. Increased echogenicity of the pancreas which is partially obscured by bowel gas. No definite interstitial or peripancreatic edema or retroperitoneal fluid col lections. The imaged right kidney is unremarkable without hydronephrosis. IMPRESSION: 1. No peripancreatic fluid collections identified. 2. Hepatic steatosis. 3. Cholecystectomy. ACT 112: Negative or not required by law. The above report was generated using voice recognition software. It may contain grammatical, syntax or spelling errors. Electronically signed by: Timur Álvarez M.D. 02/07/2022 7:07 PM [facility] Narrative Patient was seen and evaluated as above in room C02. Review was performed of nursing notes and vital signs. I did review pertinent previous visits and patient history. After obtaining a thorough history and physical examination the above work up was performed. Patient presents to us today via EMS for evaluation of epigastric/left upper quadrant abdominal pain that radiates to his back. This feels he notes identical to previous pancreatitis episodes. No trauma or injury. He has a benign abdominal examination but is tender in the epigastric region/left upper quadrant. His vital signs are overall stable. He does not appear or seem to be intoxicated on exam. Options of care were discussed with the patient. IV access was established. Labs were drawn. I will note that the patient has already received IV Toradol, IV fentanyl, IV Zofran in route. Upon arrival here he did receive IV morphine, IV fluids and IV Pepcid. He was reevaluated and pain continued. IV Dilaudid was ordered. I then received a phone call from the RN taking care of the patient that he wanted something more for his nausea. Additional 4 mg of IV Zofran ordered. The patient has had 8 CT scans of his abdomen and pelvis in less than 2 years per review of the EMR. At this time in an attempt to minimize radiation noting that the patient has felt identical symptoms previously of which were pancreatitis I did find it reasonable to begin with less invasive studies. Ultrasound was obtained of the pancreas as well as KUB of the abdomen. Ultrasound does not reveal any peripancreatic fluid collections. KUB without bowel obstruction. No leukocytosis or concerning anemia. Mild hyponatremia 134. There is anion gap noted at 16 with a carbon dioxide of 20. Glucose 251. Mild transaminitis noted with AST of 104 and ALT of 97. Amylase is elevated at 182 with lipase elevated at 627. Urinalysis does not reveal any evidence of infection. COVID test is negative. With the patient having epigastric abdominal discomfort, elevation of his amylase and lipase, I do believe that further evaluation and management inpatient setting is warranted for his pancreatitis. Case discussed with the hospitalist. Please refer to further documentation regarding his stay. Troponin is within normal limits. EKG reveals sinus tachycardia at rate of 102 bpm. QTc 445. QRS 72. No ST elevation. Case was discussed with the attending physician. Continuous cardiac monitoring was ordered. This revealed sinus rhythm at a rate of 105 bpm. GCS: 15 In the evaluation and treatment of this patient, the following differential diagnoses were considered: ASC, WI, Pneumonia, GERD, Cholecystitis, Ascending Cholangitis, Cholydocholithiasis, Bowel Obstruction, PE, Amongst Others. Impression & Plan Pancreatitis, Epigastric abdominal pain Discharge Plan Visit Data Chief Complaint: Abdominal Pain ED Provider: Tomas Ingram ED Midlevel Provider: Alberto Rivera Discharge Problem: Pancreatitis, Epigastric abdominal pain Patient Disposition: Admitted As Inpatient Condition: Good Discharge Instructions Interventions: ED Discharge Assessment Last Done: 02/07/22 20:24 Forms Stand Alone Forms: My [facility] [place] Prescriptions Prescriptions: No Action paroxetine HCl 20 mg tablet 20 mg PO QAM RF: 0 ondansetron HCl 4 mg tablet 4 mg PO Q8H PRN (Reason: NAUSEA/VOMITING) RF: 0 pantoprazole 40 mg Tablet,Delayed Release (Dr/Ec) 40 mg PO QAM Qty: 30 RF: 0 Referrals Referrals: Dhiraj Myers DO [Primary Care Provider] -
[2022-02-07] MEDS ORDERED: MoRPHine SULFATE 4 MG/ML 1 ML CARP\\VIAL IV STA (17:12)
[2022-02-07] MEDS ORDERED: FAMOTIDINE 20MG IV PUSH 20 MG/5 ML SYR IV STA (17:12)
[2022-02-07] MEDS ORDERED: SODIUM CHLORIDE 0.9% 1000ML 1,000 ML IV SCH (17:15)
[2022-02-07 18:03] LABS: Basophils # (auto) 0.01 K/uL (0-0.2); Basophils % (auto) 0.1 %; Eosinophils # (auto) 0.05 K/uL (0-0.5); Eosinophils % (auto) 0.7 %; Hematocrit (blood only) 44.2 % (42-52); Hemoglobin 15.7 g/dL (14.0-18.0); Immature Granulocytes # (auto) 0.01 K/uL (0.00-0.02); Immature Granulocytes % (auto) 0.1 %; Lymphocytes # (auto) 1.03 K/uL (1.2-3.4); Lymphocytes % (auto) 14.3 %; Mean Corpuscular Hemoglobin 33.2 pg (25-34); Mean Corpuscular Hgb Conc 35.5 g/dL (32-36); Mean Corpuscular Volume 93.4 fL (80-100); Mean Platelet Volume 9.4 fL (7.4-10.4); Monocytes # (auto) 0.17 K/uL (0.11-0.59); Monocytes % (auto) 2.4 %; Neutrophils # (auto) 5.91 K/uL (1.4-6.5); Neutrophils % (auto) 82.4 %; Platelet Count 150 K/uL (130-400); RDW Coefficient of Variation 12.1 % (11.5-14.5); RDW Standard Deviation 41.3 fL (36.4-46.3); Red Blood Count 4.73 M/uL (4.7-6.1); White Blood Count 7.18 K/uL (4.8-10.8)
[2022-02-07 18:12] LABS: BUN Creatinine Ratio 9.9 (10-20); Calcium 9.8 mg/dl (8.5-10.1); Est GFR (African American) 121.8 ml/min; Est GFR (Non-African American) 105.1 ml/min; Potassium 3.9 mmol/L (3.5-5.1)
[2022-02-07 18:15] LABS: Troponin I High Sensitivity 2.7 pg/ml (0-20)
[2022-02-07 18:33] LABS: Albumin Globulin Ratio 1.1 (0.9-2); Albumin Level 3.9 gm/dl (3.4-5.0); Bilirubin,Total 1.2 mg/dl (0.2-1.0); Globulin 3.6 gm/dl (2.5-4.0); Magnesium 1.8 mg/dl (1.7-2.4); Total Protein 7.5 gm/dl (6.0-8.3)
[2022-02-07] MEDS ORDERED: HYDROmorphone INJ 0.5 MG/0.5 ML SYR IV STA (19:01)
--- NOTE | 2022-02-07 19:07 | XRay Report ---
KUB HISTORY: Acute epigastric abdominal pain Epigastric/LUQ abd pain COMPARISON: CT abdomen and pelvis 08/19/2021 FINDINGS: Obstructive bowel gas pattern. Cholecystectomy. The renal shadows are partially obscured by bowel gas . Pelvic basin phleboliths. Mild fecal retention. Air-filled loops of small bowel within left midabdo men measuring up to 2.6 cm transversely likely physiologic. No renal calculi. No ureteral calculi. N o pneumoperitoneum or pneumatosis. Lower lumbar spine fusion hardware with discectomy. No fracture. IMPRESSION: Nonobstructive bowel gas pattern. ACT 112: Negative or not required by law. The above report was generated using voice recognition software. It may contain grammatical, syntax o r spelling errors. Electronically signed by: Timur Álvarez M.D. 02/07/2022 7:05 PM
--- NOTE | 2022-02-07 19:09 | Ultrasound Report ---
US pancreas HISTORY: 46 years-old Male Epigastric/LUQ abd pain . Acute epigastric and left upper quadrant abdomi nal pain COMPARISON: CT study 08/19/2021 TECHNIQUE: Multiple real-time sonographic images of the right upper quadrant abdomen were obtained as sessing grayscale appearance and color flow FINDINGS: Hepatic steatosis. No evidence of cirrhosis or hepatic mass. Liver appears prominent in size. Cholecy stectomy. The common bile duct is slightly dilated at 6.5 mm, likely postsurgical. No intrahepatic bi liary ductal dilation. Increased echogenicity of the pancreas which is partially obscured by bowel ga s. No definite interstitial or peripancreatic edema or retroperitoneal fluid collections. The imaged right kidney is unremarkable without hydronephrosis. IMPRESSION: 1. No peripancreatic fluid collections identified. 2. Hepatic steatosis. 3. Cholecystectomy. ACT 112: Negative or not required by law. The above report was generated using voice recognition software. It may contain grammatical, syntax o r spelling errors. Electronically signed by: Timur Álvarez M.D. 02/07/2022 7:07 PM
[2022-02-07 19:16] LABS: Appearance Urine Clear (Clear); Bacteria Urine Automated Negative (Negative); Bilirubin Urine Negative (Negative); Blood Urine Negative (Negative); Color Urine Yellow; Glucose Urine UA 3+ (Negative); Ketones Urine 3+ (Negative); Leukocyte Esterase Urine Negative (Negative); Nitrite Urine Negative (Negative); Protein Urine 1+ (Negative); RBC Urine Automated 0-4 /hpf (0-4); Specific Gravity Urine > 1.045 (1.000-1.030); Urobilinogen Urine Negative (Negative); WBC Urine Automated 0 /hpf (0-5)
[2022-02-07] MEDS ORDERED: ONDANSETRON INJ 2 MG/ML 2 ML VIAL IV STA (19:18)
[2022-02-07] MEDS ORDERED: LACTATED RINGER'S 1,000 ML IV ONE (19:21)
[2022-02-07] MEDS ORDERED: MAGNESIUM SULFATE / D5W 1 GM/100 ML BAG IV ONE (19:22)
[2022-02-07] MEDS ORDERED: PROMETHAZINE HCL 12.5 MG in SODIUM CHLORIDE 0.9% 50 ML IV PRN (19:23)
[2022-02-07] MEDS ORDERED: ACETAMINOPHEN 325 MG TAB PO PRN (19:23)
[2022-02-07] MEDS ORDERED: GABAPENTIN 600 MG TAB PO STA (19:44)
[2022-02-07 19:45] LABS: Prothrombin Time 10.7 Seconds (9.0-12.0)
[2022-02-07] MEDS ORDERED: THIAMINE HCL 100 MG in SYRINGE 9 ML IV ONE (19:45)
--- NOTE | 2022-02-07 19:49 | History & Physical Report ---
Date of Service February 07, 2022 Assessment & Plan (1) Recurrent pancreatitis: Plan: Recurrent pancreatitis: Secondary to EtOH abuse Alcohol withdrawal hx chronic pain/narcotic abuse as per records/terminated medication agreement hx DM2, not on maintenance medication secondary to noncompliance Suboptimal control as of recent hemoglobin A1c of 10.09 August 2021 ADD/mood disorder as per records, at baseline Hx PE as per records, not on anticoagulation secondary to alcoholism GERD/Renae's esophagus on PPI Alcoholic hepatitis, good prognosis with low Madrey DF score of 2.1 points Right knee pain Medical telemetry Bowel rest, LRS IVF GI consult Re: Recurrent pancreatitis, alcoholic hepatitis DT precautions, RHETT S Judicious narcotic use given history drug abuse as per records basal insulin, ISS BG goal 110-140, update hemoglobin A1c Orthopedics consult Re: Right knee pain DVT prophylaxis SCDs Re: Thrombocytopenia Full code Text document was generated using [employer] recognition software. It may contain grammatical or spelling errors. Kindly contact undersigned for clarification of any documentation item in question. History of Present Illness Chief Complaint: Abdominal pain Primary Care Provider: Dhiraj Myers, History is obtained from the patient and records. Medical history is significant for ADD/mood disorder as per records, DM2 (medication noncompliance) GERD/Renae's esophagus, recurrent alcoholic pancreatitis, hx PE as per records, history of chronic pain. hx narcotic abuse as per records/terminated medication agreement, chronic thrombocytopenia. Last confinement August 2021 for chronic pancreatitis and alcohol withdrawal. Patient seen at the ER 2 days ago for right knee pain attributed to twisting his knee while doing yard work. Right knee x-ray showed degenerative changes most prominent in the medial compartment. Patient discharged from the ER and told to follow-up with PCP. Right knee pain still bothering him. This morning, patient woke up with achy epigastric pain going to his chest which takes his breath away. Attack reminiscent of pancreatitis attack. Last drink was last night. No fever, no chills. Intractable discomfort at the ER. MEDICAL HISTORY: As above. SURGERIES: Appendectomy, cholecystectomy, vascular device placement. Back surgery FAMILY HISTORY: There is a family history of mood disorder. Alcoholism, heart disease. 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 Allergies Allergy/AdvReac Type Severity Reaction Status Date / Time No Known Allergies Allergy Verified 02/07/22 18:02 Home Medications Medication Instructions Recorded Confirmed Type paroxetine HCl 20 mg tablet 20 mg PO QAM 12/20/19 02/07/22 History pantoprazole 40 mg tablet,delayed 40 mg PO QAM #30 tab 03/01/21 02/07/22 Rx release ondansetron HCl 4 mg tablet 4 mg PO Q8H PRN 02/07/22 02/07/22 History Past Med/Surg History Medical History (Updated 02/07/22 @ 20:44 by Alberto Rivera PA-C) Abdominal pain Abdominal pain Acute hyperglycemia Alcohol abuse (Unknown) Alcohol abuse Alcoholic ketosis Renae's esophagus (Unknown) "per EGD 11/23/09 " On 05/31/11 09:06 Martinez Jose wrote "per EGD 11/23/09 " Chest pain COVID- Depression Depression DM type 2 (diabetes mellitus, type 2) Encounter for alcohol abuse counseling and surveillance Encounter for pre-operative examination Encounter for tobacco use cessation counseling H/O acute pancreatitis "recurrent" History of substance abuse Hyperglycemia Intentional drug overdose Lumbar degenerative disc disease Mood disorder Mood disorder Nausea & vomiting Neuropathy Pancreatitis Panic disorder Pulmonary embolism Suicidal ideation Suicidal ideation Suicide attempt Surgical History H/O esophagogastroduodenoscopy "EGD 11/23/2009- mild gastritis, suspicious for gastroparesis, Z-line irregular EUS 02/04/2010- mild chronic pancreatitis, pronounced cholesterolosis of gallbladder, no biliary dilation or stones, probable gastroparesis EGD 10/31/2014- gastritis" S/P lumbar fusion L4-S1 2014 Family History Father Alcohol abuse Social History Smoking Status: Current every day smoker Tobacco Type: Smokeless Tobacco (Dip or Chew) Second Hand Exposure: No; Do You Dip or Chew Tobacco: Yes; Tobacco Cessation Education Requested by Patient: No Hx Alcohol Use: Yes Alcohol type: beer Hx Substance Use: No Preferred Language: [place] Communication Ability: Effective Custodial Laborer Required: No Beliefs That Will Affect Care: None marital status: Current Living Situation: Parent Current Living Situation Comment: Lives with Viki Dang Other Information That Helps Us Care for You: No Feels Safe at Home: Yes Safety Concerns: Feels Safe At This Time Assistive Devices: None Review of Systems Review of Systems: As per HPI, all other systems reviewed and negative Physical Exam Physical Exam: GENERAL: Comfortable, slightly intoxicated,no respiratory distress SKIN: Normal color, warm HEENT: Alopecia, [place] palpebral conjunctivae, no ptosis, dry buccal mucosa NECK : Supple, short neck, no tenderness CHEST : CTA, no tenderness HEART : Tachycardic, no obvious murmurs ABDOMEN: Some distention, left-sided abdominal tenderness EXTREMITIES : No LE swelling, right knee tenderness NEUROLOGIC : Coherent, no facial asymmetry, intermittent hand tremors noted, gait and stance not assessed Results & Data Results & Data ([facility]) Vital Signs (Past 12 Hours) Vital Signs Temp Pulse Pulse Resp BP Pulse Ox 02/07/22 19:13 105 H 18 122/84 98 02/07/22 17:23 105 H 18 97 02/07/22 17:13 37.1 C 103 H 18 126/82 98 Laboratory Results Laboratory Results WBC 7.18 K/uL (4.8-10.8) 02/07/22 17:35 RBC 4.73 M/uL (4.7-6.1) 02/07/22 17:35 Hgb 15.7 g/dL (14.0-18.0) 02/07/22 17:35 Hct 44.2 % (42-52) 02/07/22 17:35 MCV 93.4 fL (80-100) D 02/07/22 17:35 MCH 33.2 pg (25-34) 02/07/22 17:35 MCHC 35.5 g/dL (32-36) 02/07/22 17:35 RDW Std Deviation 41.3 fL (36.4-46.3) 02/07/22 17:35 RDW Coeff of Gucci 12.1 % (11.5-14.5) 02/07/22 17:35 Plt Count 150 K/uL (130-400) 02/07/22 17:35 MPV 9.4 fL (7.4-10.4) 02/07/22 17:35 Immature Gran % (Auto) 0.1 % 02/07/22 17:35 Neut % (Auto) 82.4 % 02/07/22 17:35 Lymph % (Auto) 14.3 % 02/07/22 17:35 [place] % (Auto) 2.4 % 02/07/22 17:35 Eos % (Auto) 0.7 % 02/07/22 17:35 Baso % (Auto) 0.1 % 02/07/22 17:35 Neut # (Auto) 5.91 K/uL (1.4-6.5) 02/07/22 17:35 Lymph # (Auto) 1.03 K/uL (1.2-3.4) L 02/07/22 17:35 [place] # (Auto) 0.17 K/uL (0.11-0.59) 02/07/22 17:35 Eos # (Auto) 0.05 K/uL (0-0.5) 02/07/22 17:35 Baso # (Auto) 0.01 K/uL (0-0.2) 02/07/22 17:35 Immature Gran # (Auto) 0.01 K/uL (0.00-0.02) 02/07/22 17:35 PT 10.7 Seconds (9.0-12.0) 02/07/22 17:35 INR 1.0 (0.9-1.1) 02/07/22 17:35 Sodium 134 mmol/L (136-145) L 02/07/22 17:35 Potassium 3.9 mmol/L (3.5-5.1) 02/07/22 17:35 Chloride 98 mmol/L (98-107) 02/07/22 17:35 Carbon Dioxide 20 mmol/L (21-32) L 02/07/22 17:35 Anion Gap 16 (3-11) H 02/07/22 17:35 BUN 8 mg/dl (6-23) 02/07/22 17:35 Creatinine 0.81 mg/dl (0.6-1.4) 02/07/22 17:35 Est Cr Clr Drug Dosing 136.0 ml/min 02/07/22 17:35 Est GFR ( Amer) 121.8 ml/min 02/07/22 17:35 Est GFR (Non-Af Amer) 105.1 ml/min 02/07/22 17:35 BUN/Creatinine Ratio 9.9 (10-20) L 02/07/22 17:35 Glucose 251 mg/dl (70-99(Fasting)) H 02/07/22 17:35 Calcium 9.8 mg/dl (8.5-10.1) 02/07/22 17:35 Magnesium 1.8 mg/dl (1.7-2.4) 02/07/22 17:35 Total Bilirubin 1.2 mg/dl (0.2-1.0) H 02/07/22 17:35 AST 104 U/L (13-39) H 02/07/22 17:35 ALT 97 U/L (7-52) H 02/07/22 17:35 Alkaline Phosphatase 83 U/L (34-104) 02/07/22 17:35 Troponin I High Sens 2.7 pg/ml (0-20) 02/07/22 17:35 Total Protein 7.5 gm/dl (6.0-8.3) 02/07/22 17:35 Albumin 3.9 gm/dl (3.4-5.0) 02/07/22 17:35 Globulin 3.6 gm/dl (2.5-4.0) 02/07/22 17:35 Albumin/Globulin Ratio 1.1 (0.9-2) 02/07/22 17:35 Amylase 182 U/L (25-115) H 02/07/22 17:35 Lipase 627 U/L (11-82) H 02/07/22 17:35 Urine Color Yellow 02/07/22 18:40 Urine Appearance Clear (Clear) 02/07/22 18:40 Urine pH 5.0 (4.5-7.5) 02/07/22 18:40 Ur Specific [place] > 1.045 (1.000-1.030) H 02/07/22 18:40 Urine Protein 1+ (Negative) H 02/07/22 18:40 Urine Glucose (UA) 3+ (Negative) H 02/07/22 18:40 Urine Ketones 3+ (Negative) H 02/07/22 18:40 Urine Blood Negative (Negative) 02/07/22 18:40 Urine Nitrite Negative (Negative) 02/07/22 18:40 Urine Bilirubin Negative (Negative) 02/07/22 18:40 Urine Urobilinogen Negative (Negative) 02/07/22 18:40 Ur Leukocyte Esterase Negative (Negative) 02/07/22 18:40 Urine WBC (Auto) 0 /hpf (0-5) 02/07/22 18:40 Urine RBC (Auto) 0-4 /hpf (0-4) 02/07/22 18:40 U Hyaline Cast (Auto) 1-5 /lpf (0-5) 02/07/22 18:40 U Epithel Cells (Auto) 5-10 /lpf (0-5) H 02/07/22 18:40 Urine Bacteria (Auto) Negative (Negative) 02/07/22 18:40 SARS-CoV-2, RNA, NAAT NEGATIVE (NEGATIVE) 02/07/22 16:45 Impressions KUB X-Ray 02/07/22 17:11 KUB HISTORY: Acute epigastric abdominal pain Epigastric/LUQ abd pain COMPARISON: CT abdomen and pelvis 08/19/2021 FINDINGS: Obstructive bowel gas pattern. Cholecystectomy. The renal shadows are partially obscured by bowel gas. Pelvic basin phleboliths. Mild fecal retention. Air- filled loops of small bowel within left midabdomen measuring up to 2.6 cm transversely likely physiologic. No renal calculi. No ureteral calculi. No pneumoperitoneum or pneumatosis. Lower lumbar spine fusion hardware with di scectomy. No fracture. IMPRESSION: Nonobstructive bowel gas pattern. ACT 112: Negative or not required by law. The above report was generated using voice recognition software. It may contain grammatical, syntax or spelling errors. Electronically signed by: Timur Álvarez M.D. 02/07/2022 7:05 PM Pancreas Ultrasound 02/07/22 17:11 US pancreas HISTORY: 46 years-old Male Epigastric/LUQ abd pain . Acute epigastric and left upper quadrant abdominal pain COMPARISON: CT study 08/19/2021 TECHNIQUE: Multiple real-time sonographic images of the right upper quadrant abdomen were obtained assessing grayscale appearance and color flow FINDINGS: Hepatic steatosis. No evidence of cirrhosis or hepatic mass. Liver appears prominent in size. Cholecystectomy. The common bile duct is slightly dilated at 6.5 mm, likely postsurgical. No intrahepatic biliary ductal dilation. Increased echogenicity of the pancreas which is partially obscured by bowel gas. No definite interstitial or peripancreatic edema or retroperitoneal fluid collections. The imaged right kidney is unremarkable without hydronephrosis. IMPRESSION: 1. No peripancreatic fluid collections identified. 2. Hepatic steatosis. 3. Cholecystectomy. ACT 112: Negative or not required by law. The above report was generated using voice recognition software. It may contain grammatical, syntax or spelling errors. Electronically signed by: Timur Álvarez M.D. 02/07/2022 7:07 PM Diagnostic Findings EKG as per my interpretation: Rate 105, sinus tachycardia, normal axis, no ischemia
[2022-02-07] MEDS ORDERED: GLUCAGON FOR INJ 1 MG VIAL IM PRN (20:00)
[2022-02-07] MEDS ORDERED: GLUCOSE 10 TAB/TUBE PO PRN ×2 (20:00→20:55)
[2022-02-07] MEDS ORDERED: CARBOHYDRATES FOR HYPOGLYCEMIA PO PRN ×2 (20:00→20:55)
[2022-02-07] MEDS ORDERED: DEXTROSE 50% 50 ML SYRINGE IV PRN ×2 (20:00→20:55)
[2022-02-07] MEDS ORDERED: GLUCOSE 40% GEL 15 GM TUBE PO PRN ×2 (20:00→20:55)
[2022-02-07] MEDS ORDERED: GABAPENTIN 1200MG ALCOHOL WITHDRAWAL LOAD PO STA (20:55)
[2022-02-07] MEDS ORDERED: LORazepam 3 MG in SYRINGE 1.5 ML IV PRN (20:55)
[2022-02-07] MEDS ORDERED: GLUCAGON FOR INJ 1 MG VIAL SQ PRN (20:55)
[2022-02-07] MEDS ORDERED: ATIVAN IV ALCOHOL WITHDRAWL IV PRN (20:55)
[2022-02-07] MEDS: oxyCODONE HCL IR 5 MG TAB (IMMEDIATE RELEASE) PO PRN (21:08)
[2022-02-07] MEDS: LORazepam 1 MG in SYRINGE 0.5 ML IV PRN (21:21)
[2022-02-07] MEDS: FOLIC ACID 1 MG TAB PO SCH (21:21)
[2022-02-07] MEDS: THIAMINE HCL 100 MG TAB PO SCH (21:21)
[2022-02-07] MEDS: LANTUS PER UNIT CHARGE SQ SCH (21:32)
[2022-02-07] MEDS: INSULIN ASPART PER UNIT SC SCH (21:33)
[2022-02-07] MEDS: KETOROLAC TROMETHAMINE 15 MG/ML VIAL IV PRN (23:11)
[2022-02-08] MEDS: LORazepam 1 MG in SYRINGE 0.5 ML IV PRN ×5 (00:08→20:56)
[2022-02-08] MEDS: LACTATED RINGER'S 1,000 ML IV SCH ×5 (01:07→20:44)
[2022-02-08] MEDS: oxyCODONE HCL IR 5 MG TAB (IMMEDIATE RELEASE) PO PRN ×4 (01:36→21:01)
[2022-02-08] MEDS: GABAPENTIN 600 MG TAB PO SCH ×4 (01:36→23:08)
[2022-02-08] MEDS: KETOROLAC TROMETHAMINE 15 MG/ML VIAL IV PRN ×2 (04:14→12:14)
--- NOTE | 2022-02-08 06:33 | Orthopedic Consultation ---
Date of Service February 08, 2022 Assessment & Plan (1) Acute knee pain: Raffi has an acute exasperation of chronic condition. He has had knee pain for years. He has an MRI from 3 years ago and states he was supposed to have surgery at that time but never followed through. He reinjured his right knee with a twisting injury several days ago. He is currently hospitalized with acute pancreatitis. He has a history of alcohol and drug abuse and he is an uncontrolled diabetic. He is not a very good operative candidate at this time. The x-rays show very mild arthritis. He can be weightbearing as tolerated on his right knee. Once he is medically stable and discharged from the hospital, he can follow-up with his previous orthopedist and follow through with the treatment of his right knee. If you have any further questions please feel free to contact me by [place] text or personally on my cell phone at [phone] History of Present Illness Reason for Consultation: Right knee pain. Requesting Physician: . Attending Physician: Samantha Davis MD Rafif is a 46-year-old male who is been dealing with chronic right knee pain. Is been going on for years. He saw an orthopedist about 3 years ago and had x- rays and an MRI of the right knee. He states the MRI showed a meniscus tear and may be something going on with the ACL. According to Raffi, he was supposed to have surgery but did not follow through. He is continue to have some pain in his right knee. He has pain when he goes up and down stairs. He has a lot of pain anteriorly. He then twisted his right knee a few days ago and flared up the pre-existing injury. He is able to ambulate on his knee. It still bothers him some. He is currently hospitalized with recurrent pancreatitis. He has a history of alcohol and drug abuse. He is currently an uncontrolled diabetic with a previous A1c of 10.3 and a current A1c pending. Allergies Allergy/AdvReac Type Severity Reaction Status Date / Time No Known Allergies Allergy Verified 02/07/22 18:02 Home Medications Medication Instructions Recorded Confirmed Type paroxetine HCl 20 mg tablet 20 mg PO QAM 12/20/19 02/07/22 History pantoprazole 40 mg tablet,delayed 40 mg PO QAM #30 tab 03/01/21 02/07/22 Rx release ondansetron HCl 4 mg tablet 4 mg PO Q8H PRN 02/07/22 02/07/22 History Past Med/Surg History Medical History Abdominal pain Abdominal pain Acute hyperglycemia Alcohol abuse (Unknown) Alcohol abuse Alcoholic ketosis Renae's esophagus (Unknown) "per EGD 11/23/09 " On 05/31/11 09:06 Martinez Jose wrote "per EGD 11/23/09 " Chest pain COVID-19 Depression Depression DM type 2 (diabetes mellitus, type 2) Encounter for alcohol abuse counseling and surveillance Encounter for pre-operative examination Encounter for tobacco use cessation counseling H/O acute pancreatitis "recurrent" History of substance abuse Hyperglycemia Intentional drug overdose Lumbar degenerative disc disease Mood disorder Mood disorder Nausea & vomiting Neuropathy Pancreatitis Panic disorder Pulmonary embolism Suicidal ideation Suicidal ideation Suicide attempt Surgical History H/O esophagogastroduodenoscopy "EGD 11/23/2009- mild gastritis, suspicious for gastroparesis, Z-line irregular EUS 02/04/2010- mild chronic pancreatitis, pronounced cholesterolosis of gallbladder, no biliary dilation or stones, probable gastroparesis EGD 10/31/2014- gastritis" S/P lumbar fusion L4-S1 2014 Family History Father Alcohol abuse Social History Smoking Status: Current every day smoker Tobacco Type: Smokeless Tobacco (Dip or Chew) Second Hand Exposure: No; Do You Dip or Chew Tobacco: Yes; Tobacco Cessation Education Requested by Patient: No Hx Alcohol Use: Yes Alcohol type: beer Hx Substance Use: No Preferred Language: Romanian Communication Ability: Effective Capability Lead Required: No Beliefs That Will Affect Care: None marital status: Current Living Situation: Parent Current Living Situation Comment: Lives with Viki Dang Other Information That Helps Us Care for You: No Feels Safe at Home: Yes Safety Concerns: Feels Safe At This Time Assistive Devices: None Review of Systems All systems reviewed & are unremarkable except as noted in HPI & below. Physical Exam On physical examination the right knee, there is no effusion. He has motion from 0 to 120 degrees. He has no gross instability. He has some pain over the patellofemoral joint and a little pain along the medial joint line.. Constitutional WD/WN, vitals as above Eyes PERRL, conjunctivae normal, anicteric sclerae ENMT external ear and nose normal, oropharynx normal Neck trachea midline, no thyromegaly Respiratory normal respiratory effort Cardiovascular RRR, no murmur, no edema Gastrointestinal (Abdomen) normal bowel sounds, soft, nontender, no hepatosplenomegaly Psychiatric A+Ox3, euthymic affect Results & Data Results & Data Laboratory Results . Diagnostic Findings X-rays of the right knee show no evidence of fracture. There are some very minimal medial compartment arthritis. MRI of the right knee from 3 years ago is not currently in our system and unable to be reviewed. PG Care Time/CCT Total # of Minutes Spent Total Time Spent with Patient: Total time spent is greater than 50% in coordination of care (as documented) at patient's floor/unit and/or counseling patient: Coding Level of Care Code 38864 Inpt Consult Level 4 Diagnoses Acute knee pain M25.561 Laterality: right (1) Acute knee pain Laterality: right Qualified Code(s): M25.561 - Pain in right knee
[2022-02-08 06:34] LABS: Estimated Average Glucose 226 mg/dl; Hemoglobin A1C 9.5 % (4.5-5.6)
[2022-02-08 06:52] LABS: Eosinophils # (auto) 0.19 K/uL (0-0.5); Eosinophils % (auto) 4.1 %; Hematocrit (blood only) 40.6 % (42-52); Hemoglobin 14.4 g/dL (14.0-18.0); Immature Granulocytes # (auto) 0.01 K/uL (0.00-0.02); Immature Granulocytes % (auto) 0.2 %; Lymphocytes # (auto) 0.82 K/uL (1.2-3.4); Lymphocytes % (auto) 17.8 %; Mean Corpuscular Hemoglobin 33.6 pg (25-34); Mean Corpuscular Hgb Conc 35.5 g/dL (32-36); Mean Corpuscular Volume 94.9 fL (80-100); Mean Platelet Volume 9.3 fL (7.4-10.4); Monocytes # (auto) 0.52 K/uL (0.11-0.59); Monocytes % (auto) 11.3 %; Neutrophils # (auto) 3.06 K/uL (1.4-6.5); Neutrophils % (auto) 66.6 %; Platelet Count 118 K/uL (130-400); RDW Coefficient of Variation 12.1 % (11.5-14.5); RDW Standard Deviation 41.8 fL (36.4-46.3); Red Blood Count 4.28 M/uL (4.7-6.1)
[2022-02-08 07:16] LABS: Albumin Globulin Ratio 1.1 (0.9-2); Albumin Level 3.2 gm/dl (3.4-5.0); BUN Creatinine Ratio 10.4 (10-20); Bilirubin,Total 1.5 mg/dl (0.2-1.0); Calcium 8.6 mg/dl (8.5-10.1); Creatinine Clr Calc Pharmacy 161.5 ml/min; Est GFR (African American) 131.7 ml/min; Est GFR (Non-African American) 113.6 ml/min; Globulin 2.9 gm/dl (2.5-4.0); Potassium 3.5 mmol/L (3.5-5.1); Total Protein 6.1 gm/dl (6.0-8.3)
[2022-02-08] MEDS ORDERED: KETOROLAC TROMETHAMINE 15 MG/ML VIAL IV ONE (08:08)
[2022-02-08] MEDS: INSULIN ASPART PER UNIT SC SCH ×4 (08:37→20:06)
[2022-02-08] MEDS: MULTIVITAMIN TAB PO SCH (08:38)
[2022-02-08] MEDS: PANTOprazole 40 MG TAB PO SCH (08:39)
[2022-02-08] MEDS: FOLIC ACID 1 MG TAB PO SCH (08:39)
[2022-02-08] MEDS: THIAMINE HCL 100 MG TAB PO SCH (08:39)
[2022-02-08] MEDS: PARoxetine HCL 20 MG TAB PO SCH (08:39)
[2022-02-08] MEDS: SUCRALFATE 1 GM/10 ML UDC PO SCH ×2 (10:25→20:07)
[2022-02-08] MEDS ORDERED: SUCRALFATE 1 GM TAB PO SCH (13:00)
--- NOTE | 2022-02-08 15:58 | Hospitalist Progress Note ---
Date of Service February 08, 2022 Assessment & Plan (1) Recurrent pancreatitis: Plan: Recurrent pancreatitis: Secondary to EtOH abuse Ultrasound of the pancreas did not show any peripancreatic fluid collection but it did showed hepatic steatosis and history of cholecystectomy Amylase was high at 182 and lipase high at 627 Still has significant abdominal pain without nausea and or vomiting Has been on clears orally Alcohol withdrawal Has significant tremors of the outstretched hands but no confusion We will continue with the alcohol withdrawal protocol Remains minimally drowsy H/O chronic pain/narcotic abuse as per records/terminated medication agreement Will not give any intravenous narcotic Pain control with IV Toradol DM2, not on maintenance medication secondary to noncompliance Suboptimal control as of recent hemoglobin A1c of 10.09 August 2021 Hemoglobin A1c is 9.5 remains elevated Basal insulin, ISS BG goal 110-140, update hemoglobin A1c ADD/mood disorder as per records, at baseline Hx PE as per records, not on anticoagulation secondary to alcoholism GERD/Renae's esophagus on PPI Alcoholic hepatitis, good prognosis with low Madrey DF score of 2.1 points Right knee pain Mild arthritis in x-ray Appreciate orthopedic input and recommendation No need to have any procedure and only followed of in the office following discharge DVT prophylaxis SCDs Re: Thrombocytopenia Full code Admission and Anticipated Discharge Date Admission Date: February 07, 2022 Subjective 02/08/2022 The patient was seen and examined in medical telemetry unit He has been complaining of more abdominal pain with nausea but no vomiting The pain has been going around back No fever no chills And he has significant tremors involving the outstretched hands Review of Systems Review of Systems: All systems reviewed and are unremarkable except as noted below Gastrointestinal: Significant abdominal pain without distention Neurologic: Tremors involving the outstretched hands Physical Exam Physical Exam: Lying in bed comfortably. On waking up complained to have pain in the abdomen Constitutional: well developed, well nourished, + ill appearing and + obese Eyes: PERRL, conjunctivae normal, anicteric sclerae ENMT: external ear and nose normal, oropharynx normal Neck: trachea midline, no thyromegaly Respiratory: no respiratory distress Auscultation: lungs clear to auscultation bilaterally Cardiovascular: Rate/Rhythm: regular rate and regular rhythm; not tachycardic Heart Sounds: normal S1 and normal S2; no murmur Extremities: no edema Gastrointestinal (Abdomen): Inspection/Auscultation: normal bowel sounds; abdomen not distended Percussion/Palpation: + abdomen tender (In the epigastrium and more or less all over without guarding and rigidity) and abdomen soft Musculoskeletal: No acute arthritis involving any joint Neurologic: Alert, awake and oriented x3. Has tremors involving the outstretched hands Psychiatric: A+Ox3, euthymic affect Lymphatic: no cervical or axillary lymphadenopathy Results & Data Results & Data ([facility]) Vital Signs (Past 12 Hours) Vital Signs Temp Pulse Pulse Resp BP Pulse Ox 02/08/22 15:29 36.7 C 84 18 137/81 98 02/08/22 11:02 36.4 C L 92 H 20 130/80 96 02/08/22 07:40 36.4 C L 93 H 18 125/82 98 02/08/22 07:14 88 Laboratory Results Short CBC 02/07/22 02/08/22 Range/Units 17:35 06:18 WBC 7.18 4.60 L (4.8-10.8) K/uL Hgb 15.7 14.4 (14.0-18.0) g/dL Hct 44.2 40.6 L (42-52) % Plt Count 150 118 L (130-400) K/uL BMP 02/07/22 02/08/22 17:35 06:18 Sodium 134 L 135 L Potassium 3.9 3.5 Chloride 98 102 Carbon Dioxide 20 L 25 BUN 8 7 Creatinine 0.81 0.67 Glucose 251 H 125 H Calcium 9.8 8.6 Liver Function 02/07/22 02/08/22 Range/Units 17:35 06:18 Total Bilirubin 1.2 H 1.5 H (0.2-1.0) mg/dl AST 104 H 106 H (13-39) U/L ALT 97 H 93 H (7-52) U/L Alkaline Phosphatase 83 99 (34-104) U/L Albumin 3.9 3.2 L (3.4-5.0) gm/dl Urine 02/07/22 Range/Units 18:40 Urine Color Yellow Urine Appearance Clear (Clear) Urine pH 5.0 (4.5-7.5) Ur Specific [place] > 1.045 H (1.000-1.030) Urine Protein 1+ H (Negative) Urine Glucose (UA) 3+ H (Negative) Medications Administered Current Inpatient Medications Acetaminophen (Acetaminophen 325 Mg Tab) 325 mg PO Q6H PRN PRN Reason: Mild Pain Stop: 03/09/22 19:22 Dextrose (Dextrose 50% 50 Ml Syringe) 25 - 50 ml IV UD PRN; Protocol PRN Reason: Hypoglycemia Protocol Stop: 03/09/22 19:59 Folic Acid (Folic Acid 1 Mg Tab) 1 mg PO QAM [facility] Stop: 03/09/22 20:54 Last Admin: 02/08/22 08:39 Dose: 1 mg Documented by: Gabapentin (Gabapentin 600 Mg Tab) 600 mg PO Q8H [facility]OS Stop: 02/09/22 08:01 Last Admin: 02/08/22 15:23 Dose: 600 mg Documented by: Gabapentin (Gabapentin 600 Mg Tab) 600 mg PO Q12H [facility]OS Stop: 02/10/22 08:01 Gabapentin (Gabapentin 600 Mg Tab) 600 mg PO Q24H [facility]OS Stop: 02/11/22 08:01 Glucagon (Glucagon For Inj 1 Mg Vial) 1 mg IM UD PRN; Protocol PRN Reason: Hypoglycemia Protocol Stop: 03/09/22 19:59 Glucose (Glucose 40% Gel 15 Gm Tube) 15 - 30 gm PO UD PRN; Protocol PRN Reason: Hypoglycemia Protocol Stop: 03/09/22 19:59 Glucose (Glucose 10 Tabs/Tube) 4 - 8 tabs PO UD PRN; Protocol PRN Reason: Hypoglycemia Protocol Stop: 03/09/22 19:59 Promethazine HCl 12.5 mg/ (Sodium Chloride) 50.5 mls @ 202 mls/hr IV Q6H PRN PRN Reason: Nausea And Vomiting Stop: 03/09/22 19:22 Lactated Ringer's (Lr) 1,000 mls @ 200 mls/hr IV .Q5H RAMOS Stop: 02/09/22 00:59 Last Admin: 02/08/22 15:23 Dose: 200 mls/hr Documented by: Lorazepam 1 mg/ Syringe 1 mls @ 2 mls/min IV UD PRN; Protocol PRN Reason: EtOH Withdrawal AWSS Score 6,7 Stop: 03/09/22 20:54 Last Admin: 02/08/22 09:12 Dose: 2 mls/min Documented by: Lorazepam 2 mg/ Syringe 2 mls @ 2 mls/min IV UD PRN; Protocol PRN Reason: EtOH Withdrawal AWSS Score 8,9 Stop: 03/09/22 20:54 Lorazepam 3 mg/ Syringe 3 mls @ 2 mls/min IV ONCE PRN; Protocol PRN Reason: EtOH Withdrawal AWSS Score >=10 Stop: 03/09/22 20:54 Insulin Aspart (Insulin Aspart Per Unit) 0 units SC ACHS [facility] Stop: 03/09/22 20:59 Last Admin: 02/08/22 12:12 Dose: Not Given Documented by: Insulin Glargine (Lantus Per Unit Charge) 5 units SQ HS [facility] Stop: 03/09/22 20:59 Last Admin: 02/07/22 21:32 Dose: 5 units Documented by: Ketorolac Tromethamine (Ketorolac Tromethamine 15 Mg/Ml Vial) 15 mg IV Q6H PRN PRN Reason: Pain Stop: 02/12/22 19:22 Last Admin: 02/08/22 12:14 Dose: 15 mg Documented by: Miscellaneous (Carbohydrates For Hypoglycemia ) 15 - 30 gm PO UD PRN PRN Reason: Hypoglycemia Treatment Stop: 03/09/22 19:59 Miscellaneous (Carbohydrates For Hypoglycemia ) 15 - 30 gm PO UD PRN PRN Reason: Hypoglycemia Protocol Stop: 03/09/22 20:54 Multivitamins (Multivitamin Tab) [address] [facility] Stop: 03/10/22 08:59 Last Admin: 02/08/22 08:38 Dose: Not Given Documented by: Oxycodone HCl (Oxycodone Hcl Ir 5 Mg Tab (Immediate Release)) 5 mg PO Q4H PRN PRN Reason: Pain Stop: 02/21/22 19:22 Last Admin: 02/08/22 15:26 Dose: 5 mg Documented by: Pantoprazole Sodium (Pantoprazole 40 Mg Tab) 40 mg PO QAM [facility] Stop: 03/10/22 08:59 Last Admin: 02/08/22 08:39 Dose: 40 mg Documented by: Paroxetine HCl (Paroxetine Hcl 20 Mg Tab) 20 mg PO QAM [facility] Stop: 03/10/22 08:59 Last Admin: 02/08/22 08:39 Dose: 20 mg Documented by: Sucralfate (Sucralfate 1 Gm/10 Ml Udc) 1 gm PO BID [facility] Stop: 03/10/22 09:44 Last Admin: 02/08/22 10:25 Dose: 1 gm Documented by: Thiamine HCl (Thiamine Hcl 100 Mg Tab) [address] [facility] Stop: 03/09/22 20:54 Last Admin: 02/08/22 08:39 Dose: 100 mg Documented by:
--- NOTE | 2022-02-08 16:46 | Gastrointestinal Consultation ---
Date of Consultation February 08, 2022 Assessment & Plan (1) Acute alcoholic pancreatitis: (2) Elevated LFTs: (3) Recurrent pancreatitis: (4) Alcohol withdrawal: This is a 46 y/o male with h/o ETOH abuse, recurrent pancreatitis, multiple admission for the same, now admitted w/ abd pain, biochemical pancreatitis; with US not showing definite pancreatic edema/fluid collection. On exam having on going abd discomfort; abd soft. - Would agree with IVF and bowel rest for now; aim for 2 pt drop in H&H - Analgesia PRN - Tx ETOH withdrawal as per protocol - Main recommendation would be strict ETOH avoidance; should consider rehab - Unclear if advanced endoscopy such as EUS would be beneficial due to his ongoing ETOH abuse being the most likely cause for his presentation - His Maddrey's DF is low, indicating if concern for Alc hep, steroids would not be recommended - Trend daily labs, H&H - Monitor and document GI output Thank you for allowing us to participate in the care of this patient. Please call with any acute changes, questions or concerns. Please see addendum below with additional recommendation from my supervising physician. Supervising Physician Co-Signing Physician Notes I saw and evaluated the patient on 02/08/22. The patient has a history of ongoing alcohol abuse and is presently been drinking alcohol again. We were consulted due to a question of alcoholic hepatitis and possible pancreatitis. Of note his discriminant function index is quite low therefore steroids or use of pentoxifylline is probably not needed in his particular case. Physical examination dissheveled No abdominal distention or tenderness Impression patient presenting with mild alcoholic hepatitis and pancreatitis. At the present time would not recommend any specific medications aside from IV hydration and supplement replacement such as potassium, magnesium, folic acid and B12. Please watch for signs of withdrawal. Would recommend the patient consider an outpatient treatment facility for his alcohol abuse history. Please call with any additional questions or concerns, GI to sign off for the present History of Present Illness Reason for Consultation: etoh pancreatitis/hepatitis Requesting Physician: Dr. Enamorado Attending Physician: Samantha Davis MD History of Present Illness Mr. Raffi Zeng is a 46 yr old male pt of Dr. Dhiraj Myers with a hx of PE (2014), bipolar depression, DM, ADD/mood disorder, GERD, ETOH abuse and chronic pancreatitis. Has been consulted by our service int he past for this; most recently last year. Last admitted in Aug 2021 w/ pancreatitis and ETOH withdrawal. Now admitted again w/ abd pain, ETOH withdrawal. History is obtained from the patient and records. On arrival had epigastric pain radiating to his chest; reminiscent of prior pancreatitis. US pancreas does not reveal any peripancreatic fluid collections. KUB without bowel obstruction. No leukocytosis or concerning anemia. Mild hyponatremia 134. Glucose 251. Mild transaminitis noted with AST of 104 and ALT of 97, Bili 1.2 (chronic), normal ALP.Lipase elevated at 627. Urinalysis no infxn. COVID test is negative. Last drink was prior to arrival. He drinks several drinks per day; also chews tobacco. Today c/o ongoing abd pain, feels uncomfortable. No n/v, hematemesis, melena, hematochezia, fever, chills, CP, SOB. Chew at bedside with spit in bottle next to him. No BM today, isn't passing much flatus. Last EGD 2018: Normal esophagus. - Mild gastritis. - Mild erythema in the duodenum. - No specimens collected. Allergies Allergy/AdvReac Type Severity Reaction Status Date / Time No Known Allergies Allergy Verified 02/07/22 18:02 Home Medications Medication Instructions Recorded Confirmed Type paroxetine HCl 20 mg tablet 20 mg PO QAM 12/20/19 02/07/22 History pantoprazole 40 mg tablet,delayed 40 mg PO QAM #30 tab 03/01/21 02/07/22 Rx release ondansetron HCl 4 mg tablet 4 mg PO Q8H PRN 02/07/22 02/07/22 History Patient History Medical History Abdominal pain Abdominal pain Acute hyperglycemia Alcohol abuse (Unknown) Alcohol abuse Alcoholic ketosis Renae's esophagus (Unknown) "per EGD 11/23/09 " On 05/31/11 09:06 Martinez Jose wrote "per EGD 11/23/09 " Chest pain COVID-19 Depression Depression DM type 2 (diabetes mellitus, type 2) Encounter for alcohol abuse counseling and surveillance Encounter for pre-operative examination Encounter for tobacco use cessation counseling H/O acute pancreatitis "recurrent" History of substance abuse Hyperglycemia Intentional drug overdose Lumbar degenerative disc disease Mood disorder Mood disorder Nausea & vomiting Neuropathy Pancreatitis Panic disorder Pulmonary embolism Suicidal ideation Suicidal ideation Suicide attempt Surgical History H/O esophagogastroduodenoscopy "EGD 11/23/2009- mild gastritis, suspicious for gastroparesis, Z-line irregular EUS 02/04/2010- mild chronic pancreatitis, pronounced cholesterolosis of gallbladder, no biliary dilation or stones, probable gastroparesis EGD 10/31/2014- gastritis" S/P lumbar fusion L4-S1 2014 Family History Father Alcohol abuse Social History Smoking Status: Current every day smoker Tobacco Type: Smokeless Tobacco (Dip or Chew) Second Hand Exposure: No; Do You Dip or Chew Tobacco: Yes; Tobacco Cessation Education Requested by Patient: No Hx Alcohol Use: Yes Alcohol type: beer Hx Substance Use: No Preferred Language: Mongolian Communication Ability: Effective Local [employer] Required: No Beliefs That Will Affect Care: None marital status: Current Living Situation: Parent Current Living Situation Comment: Lives with Viki Dang How many Children do You have: 3 Other Information That Helps Us Care for You: No Feels Safe at Home: Yes Safety Concerns: Feels Safe At This Time Assistive Devices: None Review of Systems Review of Systems: All systems reviewed & are unremarkable except as noted in HPI & below Physical Exam Constitutional: WD/WN, vitals as above (chronically ill, no acute distress ) Eyes: PERRL, conjunctivae normal, anicteric sclerae ENMT: external ear and nose normal, oropharynx normal Respiratory: normal respiratory effort, lungs clear to auscultation Cardiovascular: RRR, no murmur, no edema Gastrointestinal (Abdomen): Inspection/Auscultation: abdomen normal to inspection and normal bowel sounds; abdomen not distended and no abdominal wall ecchymosis Percussion/Palpation: abdomen soft; no guarding and abdomen not rigid Moderately tender to the epigastrium, no rebound, guarding Skin: no rashes, warm and dry Psychiatric: A+Ox3, euthymic affect Results & Data ([facility]) Vital Signs (Past 12 Hours) Vital Signs Temp Pulse Pulse Resp BP Pulse Ox 02/08/22 15:49 90 02/08/22 15:29 36.7 C 84 18 137/81 98 02/08/22 11:02 36.4 C L 92 H 20 130/80 96 02/08/22 07:40 36.4 C L 93 H 18 125/82 98 02/08/22 07:14 88 Laboratory Results 02/08/22 02/08/22 02/08/22 Range/Units 16:53 11:22 07:36 WBC (4.8-10.8) K/uL RBC (4.7-6.1) M/uL Hgb (14.0-18.0) g/dL Hct (42-52) % MCV (80-100) fL MCH (25-34) pg MCHC (32-36) g/dL RDW Std Deviation (36.4-46.3) fL RDW Coeff of Gucci (11.5-14.5) % Plt Count (130-400) K/uL MPV (7.4-10.4) fL Immature Gran % (Auto) % Neut % (Auto) % Lymph % (Auto) % [place] % (Auto) % Eos % (Auto) % Baso % (Auto) % Neut # (Auto) (1.4-6.5) K/uL Lymph # (Auto) (1.2-3.4) K/uL [place] # (Auto) (0.11-0.59) K/uL Eos # (Auto) (0-0.5) K/uL Baso # (Auto) (0-0.2) K/uL Immature Gran # (Auto) (0.00-0.02) K/uL PT (9.0-12.0) Seconds INR (0.9-1.1) Sodium (136-145) mmol/L Potassium (3.5-5.1) mmol/L Chloride (98-107) mmol/L Carbon Dioxide (21-32) mmol/L Anion Gap (3-11) BUN (6-23) mg/dl Creatinine (0.6-1.4) mg/dl Est Cr Clr Drug Dosing ml/min Est GFR ( Amer) ml/min Est GFR (Non-Af Amer) ml/min BUN/Creatinine Ratio (10-20) Glucose (70-99(Fasting)) mg/dl POC Glucose 170 H 130 H 134 H (70-99) mg/dl Estimat Average Glucose mg/dl Hemoglobin A1c (4.5-5.6) % Calcium (8.5-10.1) mg/dl Magnesium (1.7-2.4) mg/dl Total Bilirubin (0.2-1.0) mg/dl AST (13-39) U/L ALT (7-52) U/L Alkaline Phosphatase (34-104) U/L Troponin I High Sens (0-20) pg/ml Total Protein (6.0-8.3) gm/dl Albumin (3.4-5.0) gm/dl Globulin (2.5-4.0) gm/dl Albumin/Globulin Ratio (0.9-2) Amylase (25-115) U/L Lipase (11-82) U/L Urine Color Urine Appearance (Clear) Urine pH (4.5-7.5) Ur Specific [place] (1.000-1.030) Urine Protein (Negative) Urine Glucose (UA) (Negative) Urine Ketones (Negative) Urine Blood (Negative) Urine Nitrite (Negative) Urine Bilirubin (Negative) Urine Urobilinogen (Negative) Ur Leukocyte Esterase (Negative) Urine WBC (Auto) (0-5) /hpf Urine RBC (Auto) (0-4) /hpf U Hyaline Cast (Auto) (0-5) /lpf U Epithel Cells (Auto) (0-5) /lpf Urine Bacteria (Auto) (Negative) SARS-CoV-2, RNA, NAAT (NEGATIVE) 02/08/22 02/08/22 02/07/22 Range/Units 06:18 06:18 21:28 WBC 4.60 L (4.8-10.8) K/uL RBC 4.28 L (4.7-6.1) M/uL Hgb 14.4 (14.0-18.0) g/dL Hct 40.6 L (42-52) % MCV 94.9 (80-100) fL MCH 33.6 (25-34) pg MCHC 35.5 (32-36) g/dL RDW Std Deviation 41.8 (36.4-46.3) fL RDW Coeff of Gucci 12.1 (11.5-14.5) % Plt Count 118 L (130-400) K/uL MPV 9.3 (7.4-10.4) fL Immature Gran % (Auto) 0.2 % Neut % (Auto) 66.6 % Lymph % (Auto) 17.8 % [place] % (Auto) 11.3 % Eos % (Auto) 4.1 % Baso % (Auto) 0.0 % Neut # (Auto) 3.06 (1.4-6.5) K/uL Lymph # (Auto) 0.82 L (1.2-3.4) K/uL [place] # (Auto) 0.52 (0.11-0.59) K/uL Eos # (Auto) 0.19 (0-0.5) K/uL Baso # (Auto) 0.00 (0-0.2) K/uL Immature Gran # (Auto) 0.01 (0.00-0.02) K/uL PT (9.0-12.0) Seconds INR (0.9-1.1) Sodium 135 L (136-145) mmol/L Potassium 3.5 (3.5-5.1) mmol/L Chloride 102 (98-107) mmol/L Carbon Dioxide 25 (21-32) mmol/L Anion Gap 8 (3-11) BUN 7 (6-23) mg/dl Creatinine 0.67 (0.6-1.4) mg/dl Est Cr Clr Drug Dosing 161.5 ml/min Est GFR ( Amer) 131.7 ml/min Est GFR (Non-Af Amer) 113.6 ml/min BUN/Creatinine Ratio 10.4 (10-20) Glucose 125 H (70-99(Fasting)) mg/dl POC Glucose 184 H (70-99) mg/dl Estimat Average Glucose mg/dl Hemoglobin A1c (4.5-5.6) % Calcium 8.6 (8.5-10.1) mg/dl Magnesium (1.7-2.4) mg/dl Total Bilirubin 1.5 H (0.2-1.0) mg/dl AST 106 H (13-39) U/L ALT 93 H (7-52) U/L Alkaline Phosphatase 99 (34-104) U/L Troponin I High Sens (0-20) pg/ml Total Protein 6.1 (6.0-8.3) gm/dl Albumin 3.2 L (3.4-5.0) gm/dl Globulin 2.9 (2.5-4.0) gm/dl Albumin/Globulin Ratio 1.1 (0.9-2) Amylase (25-115) U/L Lipase (11-82) U/L Urine Color Urine Appearance (Clear) Urine pH (4.5-7.5) Ur Specific [place] (1.000-1.030) Urine Protein (Negative) Urine Glucose (UA) (Negative) Urine Ketones (Negative) Urine Blood (Negative) Urine Nitrite (Negative) Urine Bilirubin (Negative) Urine Urobilinogen (Negative) Ur Leukocyte Esterase (Negative) Urine WBC (Auto) (0-5) /hpf Urine RBC (Auto) (0-4) /hpf U Hyaline Cast (Auto) (0-5) /lpf U Epithel Cells (Auto) (0-5) /lpf Urine Bacteria (Auto) (Negative) SARS-CoV-2, RNA, NAAT (NEGATIVE) 02/07/22 02/07/22 02/07/22 Range/Units 18:40 17:35 17:35 WBC (4.8-10.8) K/uL RBC (4.7-6.1) M/uL Hgb (14.0-18.0) g/dL Hct (42-52) % MCV (80-100) fL MCH (25-34) pg MCHC (32-36) g/dL RDW Std Deviation (36.4-46.3) fL RDW Coeff of Gucci (11.5-14.5) % Plt Count (130-400) K/uL MPV (7.4-10.4) fL Immature Gran % (Auto) % Neut % (Auto) % Lymph % (Auto) % [place] % (Auto) % Eos % (Auto) % Baso % (Auto) % Neut # (Auto) (1.4-6.5) K/uL Lymph # (Auto) (1.2-3.4) K/uL [place] # (Auto) (0.11-0.59) K/uL Eos # (Auto) (0-0.5) K/uL Baso # (Auto) (0-0.2) K/uL Immature Gran # (Auto) (0.00-0.02) K/uL PT 10.7 (9.0-12.0) Seconds INR 1.0 (0.9-1.1) Sodium (136-145) mmol/L Potassium (3.5-5.1) mmol/L Chloride (98-107) mmol/L Carbon Dioxide (21-32) mmol/L Anion Gap (3-11) BUN (6-23) mg/dl Creatinine (0.6-1.4) mg/dl Est Cr Clr Drug Dosing ml/min Est GFR ( Amer) ml/min Est GFR (Non-Af Amer) ml/min BUN/Creatinine Ratio (10-20) Glucose (70-99(Fasting)) mg/dl POC Glucose (70-99) mg/dl Estimat Average Glucose 226 mg/dl Hemoglobin A1c 9.5 H (4.5-5.6) % Calcium (8.5-10.1) mg/dl Magnesium (1.7-2.4) mg/dl Total Bilirubin (0.2-1.0) mg/dl AST (13-39) U/L ALT (7-52) U/L Alkaline Phosphatase (34-104) U/L Troponin I High Sens (0-20) pg/ml Total Protein (6.0-8.3) gm/dl Albumin (3.4-5.0) gm/dl Globulin (2.5-4.0) gm/dl Albumin/Globulin Ratio (0.9-2) Amylase (25-115) U/L Lipase (11-82) U/L Urine Color Yellow Urine Appearance Clear (Clear) Urine pH 5.0 (4.5-7.5) Ur Specific [place] > 1.045 H (1.000-1.030) Urine Protein 1+ H (Negative) Urine Glucose (UA) 3+ H (Negative) Urine Ketones 3+ H (Negative) Urine Blood Negative (Negative) Urine Nitrite Negative (Negative) Urine Bilirubin Negative (Negative) Urine Urobilinogen Negative (Negative) Ur Leukocyte Esterase Negative (Negative) Urine WBC (Auto) 0 (0-5) /hpf Urine RBC (Auto) 0-4 (0-4) /hpf U Hyaline Cast (Auto) 1-5 (0-5) /lpf U Epithel Cells (Auto) 5-10 H (0-5) /lpf Urine Bacteria (Auto) Negative (Negative) SARS-CoV-2, RNA, NAAT (NEGATIVE) 02/07/22 02/07/22 02/07/22 Range/Units 17:35 17:35 16:45 WBC 7.18 (4.8-10.8) K/uL RBC 4.73 (4.7-6.1) M/uL Hgb 15.7 (14.0-18.0) g/dL Hct 44.2 (42-52) % MCV 93.4 D (80-100) fL MCH 33.2 (25-34) pg MCHC 35.5 (32-36) g/dL RDW Std Deviation 41.3 (36.4-46.3) fL RDW Coeff of Gucci 12.1 (11.5-14.5) % Plt Count 150 (130-400) K/uL MPV 9.4 (7.4-10.4) fL Immature Gran % (Auto) 0.1 % Neut % (Auto) 82.4 % Lymph % (Auto) 14.3 % [place] % (Auto) 2.4 % Eos % (Auto) 0.7 % Baso % (Auto) 0.1 % Neut # (Auto) 5.91 (1.4-6.5) K/uL Lymph # (Auto) 1.03 L (1.2-3.4) K/uL [place] # (Auto) 0.17 (0.11-0.59) K/uL Eos # (Auto) 0.05 (0-0.5) K/uL Baso # (Auto) 0.01 (0-0.2) K/uL Immature Gran # (Auto) 0.01 (0.00-0.02) K/uL PT (9.0-12.0) Seconds INR (0.9-1.1) Sodium 134 L (136-145) mmol/L Potassium 3.9 (3.5-5.1) mmol/L Chloride 98 (98-107) mmol/L Carbon Dioxide 20 L (21-32) mmol/L Anion Gap 16 H (3-11) BUN 8 (6-23) mg/dl Creatinine 0.81 (0.6-1.4) mg/dl Est Cr Clr Drug Dosing 136.0 ml/min Est GFR ( Amer) 121.8 ml/min Est GFR (Non-Af Amer) 105.1 ml/min BUN/Creatinine Ratio 9.9 L (10-20) Glucose 251 H (70-99(Fasting)) mg/dl POC Glucose (70-99) mg/dl Estimat Average Glucose mg/dl Hemoglobin A1c (4.5-5.6) % Calcium 9.8 (8.5-10.1) mg/dl Magnesium 1.8 (1.7-2.4) mg/dl Total Bilirubin 1.2 H (0.2-1.0) mg/dl AST 104 H (13-39) U/L ALT 97 H (7-52) U/L Alkaline Phosphatase 83 (34-104) U/L Troponin I High Sens 2.7 (0-20) pg/ml Total Protein 7.5 (6.0-8.3) gm/dl Albumin 3.9 (3.4-5.0) gm/dl Globulin 3.6 (2.5-4.0) gm/dl Albumin/Globulin Ratio 1.1 (0.9-2) Amylase 182 H (25-115) U/L Lipase 627 H (11-82) U/L Urine Color Urine Appearance (Clear) Urine pH (4.5-7.5) Ur Specific [place] (1.000-1.030) Urine Protein (Negative) Urine Glucose (UA) (Negative) Urine Ketones (Negative) Urine Blood (Negative) Urine Nitrite (Negative) Urine Bilirubin (Negative) Urine Urobilinogen (Negative) Ur Leukocyte Esterase (Negative) Urine WBC (Auto) (0-5) /hpf Urine RBC (Auto) (0-4) /hpf U Hyaline Cast (Auto) (0-5) /lpf U Epithel Cells (Auto) (0-5) /lpf Urine Bacteria (Auto) (Negative) SARS-CoV-2, RNA, NAAT NEGATIVE (NEGATIVE) Diagnostic Findings Pancreas US: Hepatic steatosis. No evidence of cirrhosis or hepatic mass. Liver appears prominent in size. Cholecystectomy. The common bile duct is slightly dilated at 6.5 mm, likely postsurgical. No intrahepatic biliary ductal dilation. Increased echogenicity of the pancreas which is partially obscured by bowel gas. No definite interstitial or peripancreatic edema or retroperitoneal fluid collections. The imaged right kidney is unremarkable without hydronephrosis. IMPRESSION: 1. No peripancreatic fluid collections identified. 2. Hepatic steatosis. 3. Cholecystectomy. KUB: Obstructive bowel gas pattern. Cholecystectomy. The renal shadows are partially obscured by bowel gas. Pelvic basin phleboliths. Mild fecal retention. Air- filled loops of small bowel within left midabdomen measuring up to 2.6 cm transversely likely physiologic. No renal calculi. No ureteral calculi. No pneumoperitoneum or pneumatosis. Lower lumbar spine fusion hardware with disce ctomy. No fracture. IMPRESSION: Nonobstructive bowel gas pattern. (1) Acute alcoholic pancreatitis Acute pancreatitis complication: unspecified Qualified Code(s): K85.20 - Alcohol induced acute pancreatitis without necrosis or infection
[2022-02-08] MEDS: KETOROLAC 30 MG/ML VIAL IV PRN (18:44)
[2022-02-08] MEDS: LANTUS PER UNIT CHARGE SQ SCH (20:06)
--- NOTE | 2022-02-08 21:29 | Electrocardiogram Report ---
Test Reason : Blood Pressure : / mmHG Vent. Rate : 102 BPM Atrial Rate : 102 BPM P-R Int : 134 ms QRS Dur : 072 ms QT Int : 342 ms P-R-T Axes : 063 061 053 degrees QTc Int : 445 ms Poor data quality, interpretation may be adversely affected Sinus tachycardia Otherwise normal ECG When compared with ECG of 05-FEB-2022 19:03, Criteria for Septal infarct are no longer Present Confirmed by Antoni Meek ([id number]) on 02/08/2022 9:28:46 PM Referred By: Dhiraj Myers Confirmed By:Antoni Meek
[2022-02-08] MEDS: LORazepam 2 MG in SYRINGE 1 ML IV PRN (23:28)
[2022-02-09] MEDS: KETOROLAC 30 MG/ML VIAL IV PRN ×4 (00:30→19:36)
[2022-02-09] MEDS: LORazepam 1 MG in SYRINGE 0.5 ML IV PRN ×2 (01:06→21:20)
[2022-02-09] MEDS: oxyCODONE HCL IR 5 MG TAB (IMMEDIATE RELEASE) PO PRN ×4 (01:50→23:20)
[2022-02-09] MEDS: LORazepam 2 MG in SYRINGE 1 ML IV PRN ×2 (03:10→10:04)
[2022-02-09 06:27] LABS: Basophils # (auto) 0.01 K/uL (0-0.2); Basophils % (auto) 0.1 %; Eosinophils % (auto) 2.7 %; Hematocrit (blood only) 40.1 % (42-52); Hemoglobin 14.4 g/dL (14.0-18.0); Immature Granulocytes # (auto) 0.02 K/uL (0.00-0.02); Immature Granulocytes % (auto) 0.3 %; Lymphocytes # (auto) 0.87 K/uL (1.2-3.4); Lymphocytes % (auto) 11.6 %; Mean Corpuscular Hemoglobin 33.7 pg (25-34); Mean Corpuscular Hgb Conc 35.9 g/dL (32-36); Mean Corpuscular Volume 93.9 fL (80-100); Mean Platelet Volume 9.7 fL (7.4-10.4); Monocytes # (auto) 0.87 K/uL (0.11-0.59); Monocytes % (auto) 11.6 %; Neutrophils # (auto) 5.53 K/uL (1.4-6.5); Neutrophils % (auto) 73.7 %; Platelet Count 129 K/uL (130-400); RDW Coefficient of Variation 11.9 % (11.5-14.5); RDW Standard Deviation 39.9 fL (36.4-46.3); Red Blood Count 4.27 M/uL (4.7-6.1)
[2022-02-09 06:52] LABS: BUN Creatinine Ratio 4.2 (10-20); Calcium 8.7 mg/dl (8.5-10.1); Creatinine Clr Calc Pharmacy 154.1 ml/min; Est GFR (African American) 128.6 ml/min; Potassium 3.7 mmol/L (3.5-5.1)
[2022-02-09 06:54] LABS: Albumin Globulin Ratio 1.1 (0.9-2); Albumin Level 3.1 gm/dl (3.4-5.0); Bilirubin,Total 1.1 mg/dl (0.2-1.0); Globulin 2.8 gm/dl (2.5-4.0); Magnesium 1.7 mg/dl (1.7-2.4); Phosphorus 1.4 mg/dl (2.5-4.9); Total Protein 5.9 gm/dl (6.0-8.3)
[2022-02-09] MEDS ORDERED: SODIUM PHOSPHATE 3 MMOL/1 ML 5 ML VIAL IV ONE (07:59)
[2022-02-09] MEDS: MULTIVITAMIN TAB PO SCH (08:27)
[2022-02-09] MEDS: THIAMINE HCL 100 MG TAB PO SCH (08:28)
[2022-02-09] MEDS: FOLIC ACID 1 MG TAB PO SCH (08:28)
[2022-02-09] MEDS: PARoxetine HCL 20 MG TAB PO SCH (08:28)
[2022-02-09] MEDS: SUCRALFATE 1 GM/10 ML UDC PO SCH ×2 (08:28→20:06)
[2022-02-09] MEDS: GABAPENTIN 600 MG TAB PO SCH ×2 (08:28→19:36)
[2022-02-09] MEDS: PANTOprazole 40 MG TAB PO SCH (08:28)
[2022-02-09] MEDS: INSULIN ASPART PER UNIT SC SCH ×4 (08:30→20:05)
[2022-02-09] MEDS ORDERED: SODIUM PHOSPHATE 30 MMOL in SODIUM CHLORIDE 0.9% 500 ML IV ONE (08:30)
--- NOTE | 2022-02-09 17:48 | Hospitalist Progress Note ---
Date of Service February 09, 2022 Assessment & Plan (1) Recurrent pancreatitis: Plan: Recurrent pancreatitis: Secondary to EtOH abuse Ultrasound of the pancreas did not show any peripancreatic fluid collection but it did showed hepatic steatosis and history of cholecystectomy Amylase was high at 182 and lipase high at 627 Still has significant abdominal pain without nausea and or vomiting Has been on clears orally Minimal abdominal pain but soft and mildly tender on examination Lipase is normal and diet will be advanced as tolerated Alcohol withdrawal Has significant tremors of the outstretched hands but no confusion We will continue with the alcohol withdrawal protocol Remains minimally drowsy Has more tremors and seems to be tachycardic at 106 without any confusion We will continue alcohol withdrawal protocol H/O chronic pain/narcotic abuse as per records/terminated medication agreement Will not give any intravenous narcotic Pain control with IV Toradol DM2, not on maintenance medication secondary to noncompliance Suboptimal control as of recent hemoglobin A1c of 10.09 August 2021 Hemoglobin A1c is 9.5 remains elevated Basal insulin, ISS BG goal 110-140, update hemoglobin A1c ADD/mood disorder as per records, at baseline Hx PE as per records, not on anticoagulation secondary to alcoholism GERD/Renae's esophagus on PPI Alcoholic hepatitis, good prognosis with low Madrey DF score of 2.1 points Right knee pain Mild arthritis in x-ray Appreciate orthopedic input and recommendation No need to have any procedure and only followed of in the office following discharge DVT prophylaxis SCDs Re: Thrombocytopenia Full code Admission and Anticipated Discharge Date Admission Date: February 07, 2022 Subjective 02/08/2022 The patient was seen and examined in medical telemetry unit He has been complaining of more abdominal pain with nausea but no vomiting The pain has been going around back No fever no chills And he has significant tremors involving the outstretched hands 02/09/2022 The patient was seen and examined in medical telemetry unit He has been sleeping almost throughout the day I saw him around 5:40 PM Complains to have some pain in the abdomen without any nausea and or vomiting His tremors have been worse with tachycardia of around 106 Review of Systems Review of Systems: All systems reviewed and are unremarkable except as noted below Gastrointestinal: Significant abdominal pain without distention Neurologic: Tremors involving the outstretched hands Physical Exam Physical Exam: Lying in bed comfortably. On waking up complained to have pain in the abdomen Constitutional: well developed, well nourished, + ill appearing and + obese Eyes: PERRL, conjunctivae normal, anicteric sclerae ENMT: external ear and nose normal, oropharynx normal Neck: trachea midline, no thyromegaly Respiratory: no respiratory distress Auscultation: lungs clear to auscultation bilaterally Cardiovascular: Rate/Rhythm: regular rate and regular rhythm; not tachycardic Heart Sounds: normal S1 and normal S2; no murmur Extremities: no edema Gastrointestinal (Abdomen): Inspection/Auscultation: normal bowel sounds; abdomen not distended Percussion/Palpation: + abdomen tender (In the epigastrium and more or less all over without guarding and rigidity) and abdomen soft Musculoskeletal: No acute arthritis in any joint Neurologic: Alert, awake and oriented x3. Generally weak. Moderate tremors involving outstretched hands Psychiatric: A+Ox3, euthymic affect Lymphatic: no cervical or axillary lymphadenopathy Results & Data Results & Data ([facility]) Vital Signs (Past 12 Hours) Vital Signs Temp Pulse Pulse Resp BP Pulse Ox 02/09/22 16:18 106 H 02/09/22 15:15 36.7 C 104 H 20 136/84 97 02/09/22 11:50 36.5 C 113 H 16 130/74 93 02/09/22 08:00 36.8 C 112 H 16 136/80 96 02/09/22 07:23 112 H Laboratory Results Short CBC 02/09/22 Range/Units 05:59 WBC 7.50 (4.8-10.8) K/uL Hgb 14.4 (14.0-18.0) g/dL Hct 40.1 L (42-52) % Plt Count 129 L (130-400) K/uL BMP 02/09/22 05:59 Sodium 130 L Potassium 3.7 Chloride 98 Carbon Dioxide 26 BUN 3 L Creatinine 0.71 Glucose 250 H Calcium 8.7 Liver Function 02/09/22 Range/Units 05:59 Total Bilirubin 1.1 H (0.2-1.0) mg/dl AST 41 H (13-39) U/L ALT 60 H (7-52) U/L Alkaline Phosphatase 94 (34-104) U/L Albumin 3.1 L (3.4-5.0) gm/dl Medications Administered Current Inpatient Medications Acetaminophen (Acetaminophen 325 Mg Tab) 325 mg PO Q6H PRN PRN Reason: Mild Pain Stop: 03/09/22 19:22 Dextrose (Dextrose 50% 50 Ml Syringe) 25 - 50 ml IV UD PRN; Protocol PRN Reason: Hypoglycemia Protocol Stop: 03/09/22 19:59 Folic Acid (Folic Acid 1 Mg Tab) 1 mg PO QAM [facility] Stop: 03/09/22 20:54 Last Admin: 02/09/22 08:28 Dose: 1 mg Documented by: Gabapentin (Gabapentin 600 Mg Tab) 600 mg PO Q12H [facility] Stop: 02/10/22 08:01 Gabapentin (Gabapentin 600 Mg Tab) 600 mg PO Q24H [facility] Stop: 02/11/22 08:01 Glucagon (Glucagon For Inj 1 Mg Vial) 1 mg IM UD PRN; Protocol PRN Reason: Hypoglycemia Protocol Stop: 03/09/22 19:59 Glucose (Glucose 40% Gel 15 Gm Tube) 15 - 30 gm PO UD PRN; Protocol PRN Reason: Hypoglycemia Protocol Stop: 03/09/22 19:59 Glucose (Glucose 10 Tabs/Tube) 4 - 8 tabs PO UD PRN; Protocol PRN Reason: Hypoglycemia Protocol Stop: 03/09/22 19:59 Promethazine HCl 12.5 mg/ (Sodium Chloride) 50.5 mls @ 202 mls/hr IV Q6H PRN PRN Reason: Nausea And Vomiting Stop: 03/09/22 19:22 Lorazepam 1 mg/ Syringe 1 mls @ 2 mls/min IV UD PRN; Protocol PRN Reason: EtOH Withdrawal AWSS Score 6,7 Stop: 03/09/22 20:54 Last Admin: 02/09/22 01:06 Dose: 2 mls/min Documented by: Lorazepam 2 mg/ Syringe 2 mls @ 2 mls/min IV UD PRN; Protocol PRN Reason: EtOH Withdrawal AWSS Score 8,9 Stop: 03/09/22 20:54 Last Admin: 02/09/22 10:04 Dose: 2 mls/min Documented by: Lorazepam 3 mg/ Syringe 3 mls @ 2 mls/min IV ONCE PRN; Protocol PRN Reason: EtOH Withdrawal AWSS Score >=10 Stop: 03/09/22 20:54 Insulin Aspart (Insulin Aspart Per Unit) 0 units SC ACHS [facility] Stop: 03/09/22 20:59 Last Admin: 02/09/22 17:16 Dose: 2 units Documented by: Insulin Glargine (Lantus Per Unit Charge) 5 units SQ HS [facility] Stop: 03/09/22 20:59 Last Admin: 02/08/22 20:06 Dose: 5 units Documented by: Ketorolac Tromethamine (Ketorolac 30 Mg/Ml Vial) 30 mg IV Q6H PRN PRN Reason: Pain Stop: 02/12/22 16:33 Last Admin: 02/09/22 12:25 Dose: 30 mg Documented by: Miscellaneous (Carbohydrates For Hypoglycemia ) 15 - 30 gm PO UD PRN PRN Reason: Hypoglycemia Treatment Stop: 03/09/22 19:59 Miscellaneous (Carbohydrates For Hypoglycemia ) 15 - 30 gm PO UD PRN PRN Reason: Hypoglycemia Protocol Stop: 03/09/22 20:54 Multivitamins (Multivitamin Tab) 1 tab PO [facility] Stop: 03/10/22 08:59 Last Admin: 02/09/22 08:27 Dose: Not Given Documented by: Oxycodone HCl (Oxycodone Hcl Ir 5 Mg Tab (Immediate Release)) 5 mg PO Q4H PRN PRN Reason: Pain Stop: 02/21/22 19:22 Last Admin: 02/09/22 15:20 Dose: 5 mg Documented by: Pantoprazole Sodium (Pantoprazole 40 Mg Tab) 40 mg PO [facility] Stop: 03/10/22 08:59 Last Admin: 02/09/22 08:28 Dose: 40 mg Documented by: Paroxetine HCl (Paroxetine Hcl 20 Mg Tab) 20 mg PO [facility] Stop: 03/10/22 08:59 Last Admin: 02/09/22 08:28 Dose: 20 mg Documented by: Sucralfate (Sucralfate 1 Gm/10 Ml Udc) 1 gm PO BID [facility] Stop: 03/10/22 09:44 Last Admin: 02/09/22 08:28 Dose: 1 gm Documented by: Thiamine HCl (Thiamine Hcl 100 Mg Tab) 100 mg PO [facility] Stop: 03/09/22 20:54 Last Admin: 02/09/22 08:28 Dose: 100 mg Documented by:
[2022-02-09] MEDS: LANTUS PER UNIT CHARGE SQ SCH (20:05)
[2022-02-10] MEDS: KETOROLAC 30 MG/ML VIAL IV PRN ×4 (01:44→22:08)
[2022-02-10] MEDS: oxyCODONE HCL IR 5 MG TAB (IMMEDIATE RELEASE) PO PRN ×2 (02:53→11:19)
[2022-02-10] MEDS: LORazepam 1 MG in SYRINGE 0.5 ML IV PRN ×2 (05:09→11:20)
[2022-02-10 07:25] LABS: Albumin Level 2.9 gm/dl (3.4-5.0); BUN Creatinine Ratio 8.1 (10-20); Calcium 8.6 mg/dl (8.5-10.1); Creatinine Clr Calc Pharmacy 176.1 ml/min; Est GFR (Non-African American) 117.3 ml/min; Globulin 2.9 gm/dl (2.5-4.0); Magnesium 1.9 mg/dl (1.7-2.4); Phosphorus 2.4 mg/dl (2.5-4.9); Potassium 3.1 mmol/L (3.5-5.1); Total Protein 5.8 gm/dl (6.0-8.3)
[2022-02-10] MEDS: PANTOprazole 40 MG TAB PO SCH (08:21)
[2022-02-10] MEDS: THIAMINE HCL 100 MG TAB PO SCH (08:21)
[2022-02-10] MEDS: SUCRALFATE 1 GM/10 ML UDC PO SCH ×2 (08:21→22:07)
[2022-02-10] MEDS: PARoxetine HCL 20 MG TAB PO SCH (08:21)
[2022-02-10] MEDS: GABAPENTIN 600 MG TAB PO SCH (08:22)
[2022-02-10] MEDS: FOLIC ACID 1 MG TAB PO SCH (08:23)
[2022-02-10] MEDS: MULTIVITAMIN TAB PO SCH (08:23)
[2022-02-10] MEDS: INSULIN ASPART PER UNIT SC SCH ×4 (08:30→22:19)
[2022-02-10] MEDS ORDERED: POTASSIUM CHLORIDE CRTAB 20 MEQ TABCR PO STA (08:47)
[2022-02-10] MEDS ORDERED: POTASSIUM PHOS 3 MMOL/1 ML INFUSION IV STA (08:47)
[2022-02-10] MEDS ORDERED: POTASSIUM PHOSPHATE 24 MMOL in SODIUM CHLORIDE 0.9% 500 ML IV ONE (09:30)
[2022-02-10] MEDS: LORazepam 2 MG in SYRINGE 1 ML IV PRN (11:25)
--- NOTE | 2022-02-10 16:55 | Hospitalist Progress Note ---
Date of Service February 10, 2022 Assessment & Plan (1) Recurrent pancreatitis: Plan: Recurrent pancreatitis: Secondary to EtOH abuse Ultrasound of the pancreas did not show any peripancreatic fluid collection but it did showed hepatic steatosis and history of cholecystectomy Amylase was high at 182 and lipase high at 627 Still has significant abdominal pain without nausea and or vomiting Has been on clears orally Minimal abdominal pain but soft and mildly tender on examination Lipase is normal and diet will be advanced as tolerated Will advance diet as tolerated Alcohol withdrawal Has significant tremors of the outstretched hands but no confusion We will continue with the alcohol withdrawal protocol Remains minimally drowsy Has more tremors and seems to be tachycardic at 106 without any confusion We will continue alcohol withdrawal protocol Will have significant withdrawal symptoms without any confusion H/O chronic pain/narcotic abuse as per records/terminated medication agreement Will not give any intravenous narcotic Pain control with IV Toradol DM2, not on maintenance medication secondary to noncompliance Suboptimal control as of recent hemoglobin A1c of 10.09 August 2021 Hemoglobin A1c is 9.5 remains elevated Basal insulin, ISS BG goal 110-140, update hemoglobin A1c ADD/mood disorder as per records, at baseline Hx PE as per records, not on anticoagulation secondary to alcoholism GERD/Renae's esophagus on PPI Alcoholic hepatitis, good prognosis with low Madrey DF score of 2.1 points Right knee pain Mild arthritis in x-ray Appreciate orthopedic input and recommendation No need to have any procedure and only followed of in the office following discharge DVT prophylaxis SCDs Re: Thrombocytopenia Full code Admission and Anticipated Discharge Date Admission Date: February 07, 2022 Subjective 02/08/2022 The patient was seen and examined in medical telemetry unit He has been complaining of more abdominal pain with nausea but no vomiting The pain has been going around back No fever no chills And he has significant tremors involving the outstretched hands 02/09/2022 The patient was seen and examined in medical telemetry unit He has been sleeping almost throughout the day I saw him around 5:40 PM Complains to have some pain in the abdomen without any nausea and or vomiting His tremors have been worse with tachycardia of around 106 02/10/2022 The patient was seen and examined in medical telemetry unit He remains drowsy and complains to have abdominal pain Has been tolerating clears Has significant tremors with outstretched hands Review of Systems Review of Systems: All systems reviewed and are unremarkable except as noted below Gastrointestinal: Significant abdominal pain without distention Neurologic: Tremors involving the outstretched hands Physical Exam Physical Exam: Lying in bed comfortably. On waking up complained to have pain in the abdomen Constitutional: well developed, well nourished, + ill appearing and + obese Eyes: PERRL, conjunctivae normal, anicteric sclerae ENMT: external ear and nose normal, oropharynx normal Neck: trachea midline, no thyromegaly Respiratory: no respiratory distress Auscultation: lungs clear to auscultation bilaterally Cardiovascular: Rate/Rhythm: regular rate and regular rhythm; not tachycardic Heart Sounds: normal S1 and normal S2; no murmur Extremities: no edema Gastrointestinal (Abdomen): Inspection/Auscultation: normal bowel sounds; abdomen not distended Percussion/Palpation: + abdomen tender (In the epigastrium and more or less all over without guarding and rigidity) and abdomen soft Musculoskeletal: No acute arthritis in any joint Neurologic: normal touch/pain/proprioception and moves all extremities Significant tremors with outstretched hands Psychiatric: A+Ox3, euthymic affect Lymphatic: no cervical or axillary lymphadenopathy Results & Data Results & Data ([facility]) Vital Signs (Past 12 Hours) Vital Signs Temp Pulse Pulse Resp BP BP Pulse Ox 02/10/22 15:52 36.7 C 86 20 127/72 97 02/10/22 15:32 93 H 02/10/22 11:20 36.8 C 92 H 18 129/78 92 02/10/22 08:04 36.5 C 94 H 18 132/75 96 02/10/22 07:14 96 H Laboratory Results [facility] 02/10/22 06:32 Sodium 134 L Potassium 3.1 L Chloride 102 Carbon Dioxide 25 BUN 5 L Creatinine 0.62 Glucose 180 H Calcium 8.6 Liver Function 02/10/22 Range/Units 06:32 Total Bilirubin 1.0 (0.2-1.0) mg/dl AST 22 (13-39) U/L ALT 43 (7-52) U/L Alkaline Phosphatase 80 (34-104) U/L Albumin 2.9 L (3.4-5.0) gm/dl Medications Administered Current Inpatient Medications Acetaminophen (Acetaminophen 325 Mg Tab) 325 mg PO Q6H PRN PRN Reason: Mild Pain Stop: 03/09/22 19:22 Dextrose (Dextrose 50% 50 Ml Syringe) 25 - 50 ml IV UD PRN; Protocol PRN Reason: Hypoglycemia Protocol Stop: 03/09/22 19:59 Folic Acid (Folic Acid 1 Mg Tab) 1 mg PO QAM [facility] Stop: 03/09/22 20:54 Last Admin: 02/10/22 08:23 Dose: 1 mg Documented by: Gabapentin (Gabapentin 600 Mg Tab) 600 mg PO Q24H [facility] Stop: 02/11/22 08:01 Glucagon (Glucagon For Inj 1 Mg Vial) 1 mg IM UD PRN; Protocol PRN Reason: Hypoglycemia Protocol Stop: 03/09/22 19:59 Glucose (Glucose 40% Gel 15 Gm Tube) 15 - 30 gm PO UD PRN; Protocol PRN Reason: Hypoglycemia Protocol Stop: 03/09/22 19:59 Glucose (Glucose 10 Tabs/Tube) 4 - 8 tabs PO UD PRN; Protocol PRN Reason: Hypoglycemia Protocol Stop: 03/09/22 19:59 Promethazine HCl 12.5 mg/ (Sodium Chloride) 50.5 mls @ 202 mls/hr IV Q6H PRN PRN Reason: Nausea And Vomiting Stop: 03/09/22 19:22 Lorazepam 1 mg/ Syringe 1 mls @ 2 mls/min IV UD PRN; Protocol PRN Reason: EtOH Withdrawal AWSS Score 6,7 Stop: 03/09/22 20:54 Last Admin: 02/10/22 11:20 Dose: 2 mls/min Documented by: Lorazepam 2 mg/ Syringe 2 mls @ 2 mls/min IV UD PRN; Protocol PRN Reason: EtOH Withdrawal AWSS Score 8,9 Stop: 03/09/22 20:54 Last Admin: 02/10/22 11:25 Dose: 2 mls/min Documented by: Lorazepam 3 mg/ Syringe 3 mls @ 2 mls/min IV ONCE PRN; Protocol PRN Reason: EtOH Withdrawal AWSS Score >=10 Stop: 03/09/22 20:54 Insulin Aspart (Insulin Aspart Per Unit) 0 units SC [facility] Stop: 03/09/22 20:59 Last Admin: 02/10/22 13:05 Dose: Not Given Documented by: Insulin Glargine (Lantus Per Unit Charge) 5 units SQ HS [facility] Stop: 03/09/22 20:59 Last Admin: 02/09/22 20:05 Dose: 5 units Documented by: Ketorolac Tromethamine (Ketorolac 30 Mg/Ml Vial) 30 mg IV Q6H PRN PRN Reason: Pain Stop: 02/12/22 16:33 Last Admin: 02/10/22 16:42 Dose: 30 mg Documented by: Miscellaneous (Carbohydrates For Hypoglycemia ) 15 - 30 gm PO UD PRN PRN Reason: Hypoglycemia Treatment Stop: 03/09/22 19:59 Miscellaneous (Carbohydrates For Hypoglycemia ) 15 - 30 gm PO UD PRN PRN Reason: Hypoglycemia Protocol Stop: 03/09/22 20:54 Multivitamins (Multivitamin Tab) 1 tab PO [facility] Stop: 03/10/22 08:59 Last Admin: 02/10/22 08:23 Dose: 1 tab Documented by: Oxycodone HCl (Oxycodone Hcl Ir 5 Mg Tab (Immediate Release)) 5 mg PO Q4H PRN PRN Reason: Pain Stop: 02/21/22 19:22 Last Admin: 02/10/22 11:19 Dose: 5 mg Documented by: Pantoprazole Sodium (Pantoprazole 40 Mg Tab) 40 mg PO [facility] Stop: 03/10/22 08:59 Last Admin: 02/10/22 08:21 Dose: 40 mg Documented by: Paroxetine HCl (Paroxetine Hcl 20 Mg Tab) [facility] Stop: 03/10/22 08:59 Last Admin: 02/10/22 08:21 Dose: 20 mg Documented by: Sucralfate (Sucralfate 1 Gm/10 Ml Udc) 1 gm PO BID [facility] Stop: 03/10/22 09:44 Last Admin: 02/10/22 08:21 Dose: 1 gm Documented by: Thiamine HCl (Thiamine Hcl 100 Mg Tab) 100 mg PO [facility] Stop: 03/09/22 20:54 Last Admin: 02/10/22 08:21 Dose: 100 mg Documented by:
[2022-02-10] MEDS: LANTUS PER UNIT CHARGE SQ SCH (22:07)
[2022-02-10] MEDS ORDERED: LANTUS PER UNIT CHARGE SQ SCH (22:15)
[2022-02-11] MEDS ORDERED: LACTATED RINGER'S 1,000 ML IV ONE (01:01)
[2022-02-11] MEDS: KETOROLAC 30 MG/ML VIAL IV PRN (04:24)
[2022-02-11 07:08] LABS: BUN Creatinine Ratio 10.9 (10-20); Calcium 8.7 mg/dl (8.5-10.1); Creatinine Clr Calc Pharmacy 170.2 ml/min; Est GFR (African American) 134.2 ml/min; Est GFR (Non-African American) 115.8 ml/min; Magnesium 1.8 mg/dl (1.7-2.4); Potassium 3.5 mmol/L (3.5-5.1)
[2022-02-11] MEDS ORDERED: GABAPENTIN 600 MG TAB PO SCH (08:00)
[2022-02-11] MEDS: SUCRALFATE 1 GM/10 ML UDC PO SCH (08:20)
[2022-02-11] MEDS: PANTOprazole 40 MG TAB PO SCH (08:20)
[2022-02-11] MEDS: THIAMINE HCL 100 MG TAB PO SCH (08:22)
[2022-02-11] MEDS: PARoxetine HCL 20 MG TAB PO SCH (08:22)
[2022-02-11] MEDS: FOLIC ACID 1 MG TAB PO SCH (08:22)
[2022-02-11] MEDS: INSULIN ASPART PER UNIT SC SCH ×2 (08:24→13:14)
[2022-02-11 11:17] VITALS: BP 111/72; TEMP 98.2; O2SAT 96
[2022-02-11] MEDS: MULTIVITAMIN TAB PO SCH (12:00)
[2022-02-11] MEDS ORDERED: KETOROLAC 30 MG/ML VIAL IV PRN (13:54)
--- NOTE | 2022-02-11 14:11 | Hospitalist Progress Note ---
Date of Service February 11, 2022 Assessment & Plan (1) Recurrent pancreatitis: Plan: Recurrent pancreatitis: Secondary to EtOH abuse Ultrasound of the pancreas did not show any peripancreatic fluid collection but it did showed hepatic steatosis and history of cholecystectomy Amylase was high at 182 and lipase high at 627 Still has significant abdominal pain without nausea and or vomiting Has been on clears orally Minimal abdominal pain but soft and mildly tender on examination Lipase is normal and diet will be advanced as tolerated Will advance diet as tolerated Has been tolerating regular diet without any symptoms Alcohol withdrawal Has significant tremors of the outstretched hands but no confusion We will continue with the alcohol withdrawal protocol Remains minimally drowsy Has more tremors and seems to be tachycardic at 106 without any confusion We will continue alcohol withdrawal protocol Will have significant withdrawal symptoms without any confusion No more tremors and has been ambulating without any unsteadiness H/O chronic pain/narcotic abuse as per records/terminated medication agreement Will not give any intravenous narcotic Pain control with IV Toradol DM2, not on maintenance medication secondary to noncompliance Suboptimal control as of recent hemoglobin A1c of 10.09 August 2021 Hemoglobin A1c is 9.5 remains elevated Basal insulin, ISS BG goal 110-140, update hemoglobin A1c ADD/mood disorder as per records, at baseline Hx PE as per records, not on anticoagulation secondary to alcoholism GERD/Renae's esophagus on PPI Alcoholic hepatitis, good prognosis with low Madrey DF score of 2.1 points Right knee pain Mild arthritis in x-ray Appreciate orthopedic input and recommendation No need to have any procedure and only followed of in the office following discharge DVT prophylaxis SCDs Re: Thrombocytopenia Full code Discharged home Admission and Anticipated Discharge Date Admission Date: February 07, 2022 Subjective 02/08/2022 The patient was seen and examined in medical telemetry unit He has been complaining of more abdominal pain with nausea but no vomiting The pain has been going around back No fever no chills And he has significant tremors involving the outstretched hands 02/09/2022 The patient was seen and examined in medical telemetry unit He has been sleeping almost throughout the day I saw him around 5:40 PM Complains to have some pain in the abdomen without any nausea and or vomiting His tremors have been worse with tachycardia of around 106 02/10/2022 The patient was seen and examined in medical telemetry unit He remains drowsy and complains to have abdominal pain Has been tolerating clears Has significant tremors with outstretched hands 02/11/2022 The patient was seen and examined in medical telemetry unit He has been feeling much better without any tremor and has been moving around the room without any unsteadiness He wants to go home and does not want to wait for physical therapy Persuaded to stay but he declined Review of Systems Review of Systems: All systems reviewed and are unremarkable except as noted below Gastrointestinal: Significant abdominal pain without distention Neurologic: No tremors involving the outstretched hands Physical Exam Physical Exam: Lying in bed comfortably. On waking up complained to have pain in the abdomen Constitutional: well developed, well nourished, + ill appearing and + obese Eyes: PERRL, conjunctivae normal, anicteric sclerae ENMT: external ear and nose normal, oropharynx normal Neck: trachea midline, no thyromegaly Respiratory: no respiratory distress Auscultation: lungs clear to auscultation bilaterally Cardiovascular: Rate/Rhythm: regular rate and regular rhythm; not tachycardic Heart Sounds: normal S1 and normal S2; no murmur Extremities: no edema Gastrointestinal (Abdomen): Inspection/Auscultation: normal bowel sounds; abdomen not distended Percussion/Palpation: abdomen soft; abdomen nontender Neurologic: normal touch/pain/proprioception and moves all extremities No tremors without distress times Psychiatric: A+Ox3, euthymic affect Lymphatic: no cervical or axillary lymphadenopathy Results & Data Results & Data ([facility]) Vital Signs (Past 12 Hours) Vital Signs Temp Pulse Pulse Resp BP BP Pulse Ox 02/11/22 11:14 36.8 C 84 16 111/72 96 02/11/22 07:39 36.4 C L 84 16 108/66 98 02/11/22 07:33 76 02/11/22 04:00 36.8 C 96 H 18 116/74 97 Laboratory Results [facility] 02/11/22 06:05 Sodium 136 Potassium 3.5 Chloride 106 Carbon Dioxide 25 BUN 7 Creatinine 0.64 Glucose 159 H Calcium 8.7 Medications Administered Current Inpatient Medications Acetaminophen (Acetaminophen 325 Mg Tab) 325 mg PO Q6H PRN PRN Reason: Mild Pain Stop: 03/09/22 19:22 Last Admin: 02/11/22 02:28 Dose: 325 mg Documented by: Dextrose (Dextrose 50% 50 Ml Syringe) 25 - 50 ml IV UD PRN; Protocol PRN Reason: Hypoglycemia Protocol Stop: 03/09/22 19:59 Folic Acid (Folic Acid 1 Mg Tab) 1 mg PO QAM [facility] Stop: 03/09/22 20:54 Last Admin: 02/11/22 08:22 Dose: 1 mg Documented by: Glucagon (Glucagon For Inj 1 Mg Vial) 1 mg IM UD PRN; Protocol PRN Reason: Hypoglycemia Protocol Stop: 03/09/22 19:59 Glucose (Glucose 40% Gel 15 Gm Tube) 15 - 30 gm PO UD PRN; Protocol PRN Reason: Hypoglycemia Protocol Stop: 03/09/22 19:59 Glucose (Glucose 10 Tabs/Tube) 4 - 8 tabs PO UD PRN; Protocol PRN Reason: Hypoglycemia Protocol Stop: 03/09/22 19:59 Promethazine HCl 12.5 mg/ (Sodium Chloride) 50.5 mls @ 202 mls/hr IV Q6H PRN PRN Reason: Nausea And Vomiting Stop: 03/09/22 19:22 Lorazepam 1 mg/ Syringe 1 mls @ 2 mls/min IV UD PRN; Protocol PRN Reason: EtOH Withdrawal AWSS Score 6,7 Stop: 03/09/22 20:54 Last Admin: 02/10/22 11:20 Dose: 2 mls/min Documented by: Insulin Aspart (Insulin Aspart Per Unit) 0 units SC ACHS [facility] Stop: 03/09/22 20:59 Last Admin: 02/11/22 13:14 Dose: 6 units Documented by: Insulin Glargine (Lantus Per Unit Charge) 20 units SQ HS [facility] Stop: 03/12/22 22:14 Last Admin: 02/10/22 22:19 Dose: 20 units Documented by: Ketorolac Tromethamine (Ketorolac 30 Mg/Ml Vial) 30 mg IV Q6H PRN PRN Reason: Pain Stop: 02/16/22 13:53 Miscellaneous (Carbohydrates For Hypoglycemia ) 15 - 30 gm PO UD PRN PRN Reason: Hypoglycemia Treatment Stop: 03/09/22 19:59 Miscellaneous (Carbohydrates For Hypoglycemia ) 15 - 30 gm PO UD PRN PRN Reason: Hypoglycemia Protocol Stop: 03/09/22 20:54 Multivitamins (Multivitamin Tab) 1 tab PO QAM [facility] Stop: 03/10/22 08:59 Last Admin: 02/11/22 12:00 Dose: Not Given Documented by: Oxycodone HCl (Oxycodone Hcl Ir 5 Mg Tab (Immediate Release)) 5 mg PO Q4H PRN PRN Reason: Pain Stop: 02/21/22 19:22 Last Admin: 02/10/22 11:19 Dose: 5 mg Documented by: Pantoprazole Sodium (Pantoprazole 40 Mg Tab) 40 mg PO [facility] Stop: 03/10/22 08:59 Last Admin: 02/11/22 08:20 Dose: 40 mg Documented by: Paroxetine HCl (Paroxetine Hcl 20 Mg Tab) 20 mg PO [facility] Stop: 03/10/22 08:59 Last Admin: 02/11/22 08:22 Dose: 20 mg Documented by: Sucralfate (Sucralfate 1 Gm/10 Ml Udc) 1 gm PO BID [facility] Stop: 03/10/22 09:44 Last Admin: 02/11/22 08:20 Dose: 1 gm Documented by: Thiamine HCl (Thiamine Hcl 100 Mg Tab) 100 mg PO [facility] Stop: 03/09/22 20:54 Last Admin: 02/11/22 08:22 Dose: 100 mg Documented by:
[2022-02-11 15:25] VITALS: PULSE 86
--- NOTE | 2022-02-12 08:05 | Discharge Summary ---
Date of Service February 12, 2022 Admission HPI Per Admitting Provider History is obtained from the patient and records. Medical history is significant for ADD/mood disorder as per records, DM2 (medication noncompliance) GERD/Renae's esophagus, recurrent alcoholic pancreatitis, hx PE as per records, history of chronic pain. hx narcotic abuse as per records/terminated medication agreement, chronic thrombocytopenia. Last confinement August 2021 for chronic pancreatitis and alcohol withdrawal. Patient seen at the ER 2 days ago for right knee pain attributed to twisting his knee while doing yard work. Right knee x-ray showed degenerative changes most prominent in the medial compar tment. Patient discharged from the ER and told to follow-up with PCP. Right knee pain still bothering him. This morning, patient woke up with achy epigastric pain going to his chest which takes his breath away. Attack reminiscent of pancreatitis attack. Last drink was last night. No fever, no chills. Intractable discomfort at the ER. MEDICAL HISTORY: As above. SURGERIES: Appendectomy, cholecystectomy, vascular device placement. Back surgery FAMILY HISTORY: There is a family history of mood disorder. Alcoholism, heart disease. 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 Admission Exam Per Admitting Provider Physical Exam: GENERAL: Comfortable, slightly intoxicated,no respiratory distress SKIN: Normal color, warm HEENT: Alopecia, [place] palpebral conjunctivae, no ptosis, dry buccal mucosa NECK : Supple, short neck, no tenderness CHEST : CTA, no tenderness HEART : Tachycardic, no obvious murmurs ABDOMEN: Some distention, left-sided abdominal tenderness EXTREMITIES : No LE swelling, right knee tenderness NEUROLOGIC : Coherent, no facial asymmetry, intermittent hand tremors noted, gait and stance not assessed Principal Diagnosis Recurrent pancreatitis, alcoholism with withdrawal symptoms Discharge Exam Lying in bed comfortably. On waking up complained to have pain in the abdomen Constitutional well developed, well nourished, + ill appearing and + obese Eyes PERRL, conjunctivae normal, anicteric sclerae ENMT external ear and nose normal, oropharynx normal Neck trachea midline, no thyromegaly Respiratory no respiratory distress Auscultation: lungs clear to auscultation bilaterally Cardiovascular Rate/Rhythm: regular rate and regular rhythm; not tachycardic Heart Sounds: normal S1 and normal S2; no murmur Extremities: no edema Gastrointestinal (Abdomen) Inspection/Auscultation: normal bowel sounds; abdomen not distended Percussion/Palpation: abdomen soft; abdomen nontender Neurologic normal touch/pain/proprioception and moves all extremities Psychiatric A+Ox3, euthymic affect Lymphatic no cervical or axillary lymphadenopathy Discharge Data Allergies Allergy/AdvReac Type Severity Reaction Status Date / Time No Known Allergies Allergy Verified 02/07/22 18:02 Consultations 02/07/22 19:20 ED Decision to Admit Stat 02/07/22 19:55 Consult Gastroenterology Routine Consult Orthopedic Surgery Routine Ordered Studies 02/07/22 17:11 US pancreas Stat Hospital Course (1) Recurrent pancreatitis: Recurrent pancreatitis: Secondary to EtOH abuse Ultrasound of the pancreas did not show any peripancreatic fluid collection but it did showed hepatic steatosis and history of cholecystectomy Amylase was high at 182 and lipase high at 627 Still has significant abdominal pain without nausea and or vomiting Has been on clears orally Minimal abdominal pain but soft and mildly tender on examination Lipase is normal and diet will be advanced as tolerated Will advance diet as tolerated Has been tolerating regular diet without any symptoms Alcohol withdrawal Has significant tremors of the outstretched hands but no confusion We will continue with the alcohol withdrawal protocol Remains minimally drowsy Has more tremors and seems to be tachycardic at 106 without any confusion We will continue alcohol withdrawal protocol Will have significant withdrawal symptoms without any confusion No more tremors and has been ambulating without any unsteadiness H/O chronic pain/narcotic abuse as per records/terminated medication agreement Will not give any intravenous narcotic Pain control with IV Toradol DM2, not on maintenance medication secondary to noncompliance Suboptimal control as of recent hemoglobin A1c of 10.09 August 2021 Hemoglobin A1c is 9.5 remains elevated Basal insulin, ISS BG goal 110-140, update hemoglobin A1c ADD/mood disorder as per records, at baseline Hx PE as per records, not on anticoagulation secondary to alcoholism GERD/Renae's esophagus on PPI Alcoholic hepatitis, good prognosis with low Madrey DF score of 2.1 points Right knee pain Mild arthritis in x-ray Appreciate orthopedic input and recommendation No need to have any procedure and only followed of in the office following discharge DVT prophylaxis SCDs Re: Thrombocytopenia Full code Discharged home Total Time Total Time Spent Total Time Spent (In Minutes): 35 minutes Discharge Plan Discharge Items Patient Disposition: Home - Self-Care Reason For Visit: PANCREATITIS,ETOH WITHDRAWAL Discharge Diagnosis: Recurrent pancreatitis, alcoholism with withdrawal symptoms Condition on Discharge: Good Activity: Resume your previous activity Non-emergency contact: Primary Care Provider Call non-emergency contact if: you have any medication questions and your symptoms worsen Follow-up/Referrals: Dhiraj Myers, [Primary Care Provider] - (Date & Time 02/17/2022 12:20 PM Provider Taina Spaulding PA-C Department [facility] ) Diet: Carb Consistent or DM2 Addtl Attending Provider Instructions: Please take precautions to avoid falls Strongly advised to quit drinking Strongly advised to keep in touch with alcohol Anonymous group Please keep appointments with your healthcare provider Pending Studies at Discharge: No Stand-Alone Forms: My [employer], Smoking Cessation Medications and DC Order Prescriptions: New folic acid 1 mg Tablet 1 mg PO QAM Qty: 30 RF: 0 thiamine HCl (vitamin B1) 100 mg Tablet 100 mg PO QAM Qty: 30 RF: 0 Continued paroxetine HCl 20 mg tablet 20 mg PO QAM RF: 0 ondansetron HCl 4 mg tablet 4 mg PO Q8H PRN (Reason: NAUSEA/VOMITING) RF: 0 pantoprazole 40 mg Tablet,Delayed Release (Dr/Ec) 40 mg PO QAM Qty: 30 RF: 0 Discharge Orders: Discharge Order (Routine); Ordered 02/11/22 Ordered By: Samantha Bowden/Other Patient Handouts: Managing Type 2 Diabetes Admission Data Admit Date/Time: 02/07/22 19:50 Attending Provider: Samantha Davis Admit Provider: Bishop Enamorado Primary Care Provider: Dhiraj Myers Other Providers: Ino Alvares ; Roselyn Peters ; Dami Luo ; Maryjane Panchal ; Homero Mullen ; Deborah Molina ; Sanjay Bass ; Colton Moreland ; Christina Gill ; Margaret Banegas ; Marika Parrish ; So Prakash ; Camila Gentile ; Quinten Jasmine ; Katina Kuhn ; Blake Quiroga ; Ayla Lopez ; Brice Schneider ; Ursula Larsen ; Melissa Hedrick ; Max Carver ; Kostas Sanz ; Tomas Ibarra ; Tomas Rod ; Bishop Enamorado. Other Interventions: Discharge Summary Assessment (RN) Last Done: 02/11/22 15:21
== END 2022-02-11 15:45 | disposition home or self-care (01) | DRG 439 ==
LOC: ED 17:00 → 2N 19:50

== ENCOUNTER 2022-08-17 19:50 | Observation (INO) ==
[2022-08-17] MEDS ORDERED: ONDANSETRON INJ 2 MG/ML 2 ML VIAL IV STA (20:30)
[2022-08-17] MEDS: HYDROmorphone INJ 0.5 MG/0.5 ML SYR IV PRN ×3 (21:01→23:47)
[2022-08-17 21:07] LABS: D Dimer 240 ug/L FEU (0-500); Partial Thromboplastin Ratio 0.9; Partial Thromboplastin Time 25.1 Seconds (21.0-31.0); Prothrombin Time 10.2 Seconds (9.0-12.0)
[2022-08-17 21:09] LABS: Basophils # (auto) 0.03 K/uL (0-0.2); Basophils % (auto) 0.6 %; Eosinophils # (auto) 0.22 K/uL (0-0.50); Eosinophils % (auto) 4.2 %; Hemoglobin 17.5 g/dl (14.0-18.0); Immature Granulocytes # (auto) 0.01 K/uL (0.00-0.02); Immature Granulocytes % (auto) 0.2 %; Lymphocytes % (auto) 26.9 %; Mean Corpuscular Hemoglobin 33.3 pg (25.0-34.0); Mean Corpuscular Hgb Conc 35.7 g/dL (32.0-36.0); Mean Corpuscular Volume 93.2 fL (80.0-100.0); Mean Platelet Volume 9.6 fL (9.4-12.4); Monocytes # (auto) 0.33 K/uL (0.24-0.82); Monocytes % (auto) 6.3 %; Neutrophils # (auto) 3.21 K/uL (1.4-6.5); Neutrophils % (auto) 61.8 %; Platelet Count 242 K/uL (130-400); RDW Coefficient of Variation 11.7 % (11.5-14.5); RDW Standard Deviation 40.4 fL (36.4-46.3); Red Blood Count 5.26 M/uL (4.63-6.08)
--- NOTE | 2022-08-17 21:12 | Emergency Department Note ---
Impression & Plan Retrosternal chest pain, Abdominal pain, acute, epigastric, Intractable abdominal pain, Alcohol abuse, Pancreatic duct stones ED Provider Note INFORMANT: Patient ED PROVIDER(S): Martinez Marx MD CHIEF COMPLAINT: Chest pain PLAN: Disposition: Admitted Condition: Good Outpatient prescription management: none Referral: None MEDICAL DECISION MAKING: Patient presented because of chest pain. He also has an issue with alcohol abuse. The patient had a work-up initiated. His ECG showed a tachycardia without ischemia. Patient also noted being initially on Coumadin however his INR was normal. The CBC and chemistry panel were unremarkable except for hyperglycemia. This was treated with insulin. The patient underwent chest CT imaging as well as CT scan of the abdomen pelvis secondary to concerns about possible PE due to the blood clot in the left leg and subtherapeutic INR. CT PE study was negative. CT scan of the abdomen pelvis did reveal pancreatic stones but no obvious evidence of acute pancreatitis. Given his alcohol abuse and history of multiple issues with pancreatitis there is concern that he is dealing with pain from the pancreas albeit not showing up in the labs. The patient did have an elevated alcohol level consistent with his admitted drinking. On further questioning the patient then realized he is not on Coumadin and states that he was taking Eliquis. This would explain the normal INR. He did require multiple doses of Dilaudid and was still having pain. He was hydrated with LR and was also treated with Zofran. Given the intractable pain and symptom management in hospital was deemed appropriate. Patient was in agreement. Consu ltation was [facility] Enamor[facility] Case was discussed and diagnostics were reviewed. Patient was evaluated in ER and admitted for further management. Triage Nursing notes reviewed and agree them. Vital Signs: reviewed and remarkable for mild tachycardia Prior /Outside records reviewed: none Differential diagnosis: Cardiac ischemia, aortic dissection, pulmonary embolism, pneumothorax, pneumonia, pericarditis, myocarditis, esophageal rupture, GERD, cholecystitis, pancreatitis, musculoskeletal, as well as other pathologies. Diagnostics, as interpreted by me: ECG: Twelve-lead ECG reveals sinus tachycardia at 107 bpm. No evidence of ST elevation or depression. No PACs or PVCs. Cardiac Monitoring: Cardiac monitoring ordered by me: The patient was placed on continuous cardiac monitoring and observed. It revealed a normal sinus rhythm at 100 beats per minute without ectopy or evidence of dysrhythmia. Medical decision rules: none Imaging studies: CT scan of the chest and CT scan of the abdomen pelvis as noted above. I refer you to the EMR for further details. HPI: The patient is a 46year old male who presents to the Emergency Room with complaints of retrosternal chest pain. This started today and is persisting. The patient also notes the following associated symptoms, epigastric and right- sided abdominal pain that radiates to his back, nausea. The patient has found no relieving factors. Current pain is rated as 7/10. Patient has a history of pancreatitis and states this feels the same. He is actively drinking and had about 4 alcoholic drinks today. Patient is also on Coumadin secondary to a blood clot found in his left lower leg. Pt denies LOC, headache, fevers, chills, diaphoresis, visual changes, neck pain, breathing difficulties, vomiting,melena, hematochezia, urinary symptoms, numbness, weakness, lymphadenopathy, rash, or other complaints. PAST MEDICAL HISTORY: See Below, alcoholism, pancreatitis, DVT PAST SURGICAL HISTORY: See Below, SOCIAL HISTORY: See Below, drinks alcohol daily HOME MEDICATIONS: See Below ALLERGIES: See Below VITALS: See Below PHYSICAL EXAMINATION: GENERAL: Awake, alert, uncomfortable-appearing, in no distress HENT: Normocephalic, atraumatic. Oropharynx unremarkable. EYES: Normal conjunctiva. Sclera non-icteric. NECK: Inspection normal. Non-tender. Supple. No nuchal rigidity. FROM. No masses. RESPIRATORY: Clear to auscultation. No wheezes. No rales. Normal respiratory effort. CARDIAC: Tachycardic rate. Normal rhythm. No murmurs. No rubs. Extremities warm and well perfused. Pulses equal. No JVD. GI: Soft, non-distended. Epigastric tenderness to palpation. No rebound or guarding. No masses. RECTAL: Deferred. MUSCULOSKELETAL: Atraumatic. Chest examination reveals no tenderness. The back is symmetrical on inspection without obvious abnormality. There is no CVA tenderness to palpation. No joint edema. LOWER EXTREMITIES: Calves are equal size bilaterally and non-tender. No edema. No discoloration. NEURO: Normal sensorium. No sensory or motor deficits noted. SKIN: No rash or jaundice noted. Past Med/Surg History Medical History (Updated 08/18/22 @ 01:01 by Martinez Marx MD) Abdominal pain Abdominal pain Acute hyperglycemia Alcohol abuse (Unknown) Alcohol abuse Alcoholic ketosis Renae's esophagus (Unknown) "per EGD 11/23/09 " On 05/31/11 09:06 Martinez Jose wrote "per EGD 11/23/09 " Chest pain COVID-19 Depression Depression DM type 2 (diabetes mellitus, type 2) Encounter for alcohol abuse counseling and surveillance Encounter for pre-operative examination Encounter for tobacco use cessation counseling H/O acute pancreatitis "recurrent" History of substance abuse Hyperglycemia Intentional drug overdose Lumbar degenerative disc disease Mood disorder Mood disorder Nausea & vomiting Neuropathy Pancreatitis Panic disorder Pulmonary embolism Suicidal ideation Suicidal ideation Suicide attempt Surgical History H/O esophagogastroduodenoscopy "EGD 11/23/2009- mild gastritis, suspicious for gastroparesis, Z-line irregular EUS 02/04/2010- mild chronic pancreatitis, pronounced cholesterolosis of gallbl adder, no biliary dilation or stones, probable gastroparesis EGD 10/31/2014- gastritis" S/P lumbar fusion L4-S1 2014 Family History Father Alcohol abuse Social History Smoking Status: Never smoker Tobacco Type: Smokeless Tobacco (Dip or Chew) Second Hand Exposure: No; Hx Alcohol Use: Yes Alcohol type: beer Hx Substance Use: No Preferred Language: Malaysian Communication Ability: Effective Transportation Services Representative Required: No Beliefs That Will Affect Care: None marital status: Current Living Situation: Parent Current Living Situation Comment: Lives with Viki Dang How many Children do You have: 3 Feels Safe at Home: Yes Assistive Devices: None Allergies Allergies Allergy/AdvReac Type Severity Reaction Status Date / Time No Known Allergies Allergy Verified 08/17/22 21:11 Home Meds Home Medications Medication Instructions Recorded Confirmed paroxetine HCl 20 mg tablet 20 mg PO QAM 12/20/19 08/17/22 acetaminophen 325 mg capsule 650 mg PO BID PRN Fever Or Pain 08/17/22 08/17/22 (Tylenol) apixaban 5 mg tablet (Eliquis) 5 mg PO BID 08/17/22 08/17/22 empagliflozin 10 mg tablet 10 mg PO UD 08/17/22 08/17/22 (Jardiance) melatonin 3 mg tablet 3 - 6 mg PO HS PRN Sleep 08/17/22 08/17/22 naloxone 4 mg/actuation nasal 1 spray intranasal UD opiod over 08/17/22 08/17/22 spray (Narcan) dose Previous Rx's Medication Instructions Recorded pantoprazole 40 mg tablet,delayed 40 mg PO QAM #30 tabs 03/01/21 release Results & Data (ED) Vital Signs Vital Signs - 24 hr 08/17/22 20:10 08/17/22 21:00 08/17/22 22:00 Temperature 36.9 C Temperature Source Oral Pulse Rate 104 H Pulse Rate [Apical] 106 H 107 H Respiratory Rate 16 16 16 Blood Pressure 123/84 Blood Pressure [Right Arm] 110/77 111/69 Blood Pressure Mean 97 Blood Pressure Mean [Right Arm] 88 83 Blood Pressure Position [Right Arm] Pulse Oximetry 98 93 94 Oxygen Delivery Method Room Air Room Air Room Air Sepsis Recent Fever Within 48 Hours No Sepsis New/Unexplained Change in Mental Status No Sepsis Action Taken by Nursing No Action Required 08/17/22 23:00 08/18/22 00:00 Temperature Temperature Source Pulse Rate Pulse Rate [Apical] 109 H 100 H Respiratory Rate 16 16 Blood Pressure Blood Pressure [Right Arm] 112/74 102/67 Blood Pressure Mean Blood Pressure Mean [Right Arm] 86 78 Blood Pressure Position [Right Arm] Semi-fowlers Pulse Oximetry 96 93 Oxygen Delivery Method Room Air Room Air Sepsis Recent Fever Within 48 Hours Sepsis New/Unexplained Change in Mental Status Sepsis Action Taken by Nursing Laboratory Data 08/17/22 20:00 08/17/22 20:00 Lab Results 08/17/22 08/17/22 08/17/22 Range/Units 20:00 20:00 20:00 WBC 5.20 (4.8-10.8) K/ul RBC 5.26 (4.63-6.08) M/uL Hgb 17.5 (14.0-18.0) g/dl Hct 49.0 (40.1-51.0) % MCV 93.2 (80.0-100.0) fL MCH 33.3 (25.0-34.0) pg MCHC 35.7 (32.0-36.0) g/dL RDW Std Deviation 40.4 (36.4-46.3) fL RDW Coeff of Gucci 11.7 (11.5-14.5) % Plt Count 242 (130-400) K/uL MPV 9.6 (9.4-12.4) fL Immature Gran % (Auto) 0.2 % Neut % (Auto) 61.8 % Lymph % (Auto) 26.9 % Crosby % (Auto) 6.3 % Eos % (Auto) 4.2 % Baso % (Auto) 0.6 % Neut # (Auto) 3.21 (1.4-6.5) K/uL Lymph # (Auto) 1.40 (1.2-3.4) K/uL Crosby # (Auto) 0.33 (0.24-0.82) K/uL Eos # (Auto) 0.22 (0-0.50) K/uL Baso # (Auto) 0.03 (0-0.2) K/uL Immature Gran # (Auto) 0.01 (0.00-0.02) K/uL PT 10.2 (9.0-12.0) Seconds INR 1.0 (0.9-1.1) APTT 25.1 (21.0-31.0) Seconds PTT Ratio 0.9 D-Dimer 240 (0-500) ug/L FEU Sodium 138 (136-145) mmol/L Potassium 3.7 (3.5-5.1) mmol/L Chloride 101 (98-107) mmol/L Carbon Dioxide 24 (21-32) mmol/L Anion Gap 13 H (3-11) BUN 7 (6-23) mg/dl Creatinine 0.88 (0.6-1.4) mg/dl Est Cr Clr Drug Dosing Not Reportable Est GFR ( Amer) 117.7 ml/min Est GFR (Non-Af Amer) 101.6 ml/min BUN/Creatinine Ratio 8.0 L (10-20) Glucose 312 H* (70-99(Fasting)) mg/dl POC Glucose (70-99) mg/dl Calcium 10.7 H (8.5-10.1) mg/dl Total Bilirubin 0.4 (0.2-1.0) mg/dl AST 36 (13-39) U/L ALT 37 (7-52) U/L Alkaline Phosphatase 69 (34-104) U/L Troponin I High Sens 3.5 (0-20) pg/ml Total Protein 8.7 H (6.0-8.3) gm/dl Albumin 4.6 (3.4-5.0) gm/dl Globulin 4.1 H (2.5-4.0) gm/dl Albumin/Globulin Ratio 1.1 (0.9-2) Amylase (25-115) U/L Lipase 61 (11-82) U/L Ethyl Alcohol mg/dL (<10.0) mg/dl SARS-CoV-2, RNA, NAAT (NEGATIVE) 08/17/22 08/17/22 08/17/22 Range/Units 20:00 20:20 20:38 WBC (4.8-10.8) K/ul RBC (4.63-6.08) M/uL Hgb (14.0-18.0) g/dl Hct (40.1-51.0) % MCV (80.0-100.0) fL MCH (25.0-34.0) pg MCHC (32.0-36.0) g/dL RDW Std Deviation (36.4-46.3) fL RDW Coeff of Gucci (11.5-14.5) % Plt Count (130-400) K/uL MPV (9.4-12.4) fL Immature Gran % (Auto) % Neut % (Auto) % Lymph % (Auto) % Crosby % (Auto) % Eos % (Auto) % Baso % (Auto) % Neut # (Auto) (1.4-6.5) K/uL Lymph # (Auto) (1.2-3.4) K/uL Crosby # (Auto) (0.24-0.82) K/uL Eos # (Auto) (0-0.50) K/uL Baso # (Auto) (0-0.2) K/uL Immature Gran # (Auto) (0.00-0.02) K/uL PT (9.0-12.0) Seconds INR (0.9-1.1) APTT (21.0-31.0) Seconds PTT Ratio D-Dimer (0-500) ug/L FEU Sodium (136-145) mmol/L Potassium (3.5-5.1) mmol/L Chloride (98-107) mmol/L Carbon Dioxide (21-32) mmol/L Anion Gap (3-11) BUN (6-23) mg/dl Creatinine (0.6-1.4) mg/dl Est Cr Clr Drug Dosing Est GFR ( Amer) ml/min Est GFR (Non-Af Amer) ml/min BUN/Creatinine Ratio (10-20) Glucose (70-99(Fasting)) mg/dl POC Glucose (70-99) mg/dl Calcium (8.5-10.1) mg/dl Total Bilirubin (0.2-1.0) mg/dl AST (13-39) U/L ALT (7-52) U/L Alkaline Phosphatase (34-104) U/L Troponin I High Sens (0-20) pg/ml Total Protein (6.0-8.3) gm/dl Albumin (3.4-5.0) gm/dl Globulin (2.5-4.0) gm/dl Albumin/Globulin Ratio (0.9-2) Amylase 44 (25-115) U/L Lipase (11-82) U/L Ethyl Alcohol mg/dL 192.9 H (<10.0) mg/dl SARS-CoV-2, RNA, NAAT NEGATIVE (NEGATIVE) 08/18/22 Range/Units 00:32 WBC (4.8-10.8) K/ul RBC (4.63-6.08) M/uL Hgb (14.0-18.0) g/dl Hct (40.1-51.0) % MCV (80.0-100.0) fL MCH (25.0-34.0) pg MCHC (32.0-36.0) g/dL RDW Std Deviation (36.4-46.3) fL RDW Coeff of Gucci (11.5-14.5) % Plt Count (130-400) K/uL MPV (9.4-12.4) fL Immature Gran % (Auto) % Neut % (Auto) % Lymph % (Auto) % Crosby % (Auto) % Eos % (Auto) % Baso % (Auto) % Neut # (Auto) (1.4-6.5) K/uL Lymph # (Auto) (1.2-3.4) K/uL Crosby # (Auto) (0.24-0.82) K/uL Eos # (Auto) (0-0.50) K/uL Baso # (Auto) (0-0.2) K/uL Immature Gran # (Auto) (0.00-0.02) K/uL PT (9.0-12.0) Seconds INR (0.9-1.1) APTT (21.0-31.0) Seconds PTT Ratio D-Dimer (0-500) ug/L FEU Sodium (136-145) mmol/L Potassium (3.5-5.1) mmol/L Chloride (98-107) mmol/L Carbon Dioxide (21-32) mmol/L Anion Gap (3-11) BUN (6-23) mg/dl Creatinine (0.6-1.4) mg/dl Est Cr Clr Drug Dosing Est GFR ( Amer) ml/min Est GFR (Non-Af Amer) ml/min BUN/Creatinine Ratio (10-20) Glucose (70-99(Fasting)) mg/dl POC Glucose 128 H (70-99) mg/dl Calcium (8.5-10.1) mg/dl Total Bilirubin (0.2-1.0) mg/dl AST (13-39) U/L ALT (7-52) U/L Alkaline Phosphatase (34-104) U/L Troponin I High Sens (0-20) pg/ml Total Protein (6.0-8.3) gm/dl Albumin (3.4-5.0) gm/dl Globulin (2.5-4.0) gm/dl Albumin/Globulin Ratio (0.9-2) Amylase (25-115) U/L Lipase (11-82) U/L Ethyl Alcohol mg/dL (<10.0) mg/dl SARS-CoV-2, RNA, NAAT (NEGATIVE) Administered Medications Multivitamins 10 ml/ Thiamine HCl 100 mg/ Folic Acid 1 mg/Sodium Chloride 1,011.2 mls @ 200 mls/hr IV .Q5H4M STA Stop: 08/18/22 05:15 Last Admin: 08/18/22 00:32 Dose: 200 mls/hr Documented By: JOSE Oxycodone HCl (Oxycodone Hcl Ir 5 Mg Tab (Immediate Release)) 5 - 10 mg PO QID PRN PRN Reason: Pain Stop: 08/31/22 23:52 Last Admin: 08/18/22 00:58 Dose: 10 mg Documented By: JOSE Discontinued Medications Hydromorphone HCl (Hydromorphone Inj 0.5 Mg/0.5 Ml Syr) 0.5 mg IV Q15M PRN PRN Reason: Pain Stop: 08/31/22 20:29 Last Admin: 08/17/22 23:47 Dose: 0.5 mg Documented By: Admin: 08/17/22 22:25 Dose: 0.5 mg Documented By: Admin: 08/17/22 21:01 Dose: 0.5 mg Documented By: JOSE Lactated Ringer's (Lr) 1,000 mls @ 200 mls/hr IV .Q5H RAMOS Stop: 09/16/22 21:14 Last Infusion: 08/18/22 00:08 Dose: 0 mls/hr Documented By: Admin: 08/17/22 21:48 Dose: 200 mls/hr Documented By: JOSE Insulin Glargine (Lantus Per Unit Charge) 25 units SQ NOW STA Stop: 08/18/22 00:09 Last Admin: 08/18/22 00:32 Dose: 25 units Documented By: JOSE Co-signed By: AN Insulin Human Regular (Novolin-R Insulin Per Unit Charge) 5 units IV NOW STA Stop: 08/17/22 21:40 Last Admin: 08/17/22 21:48 Dose: 5 units Documented By: JOSE Co-signed By: AN Ioversol (Optiray 320 500ml) 113 ml IV ONCE ONE Stop: 08/17/22 21:34 Last Admin: 08/17/22 21:34 Dose: 113 ml Documented By: JR Ondansetron HCl (Ondansetron Inj 2 Mg/Ml 2 Ml Vial) 4 mg IV NOW STA Stop: 08/17/22 20:31 Last Admin: 08/17/22 21:01 Dose: 4 mg Documented By: JOSE Imaging Data Radiologist's Impression: Chest X-Ray 08/17/22 20:13 XR chest 1V portable CLINICAL HISTORY: Chest pain, nonspecific COMPARISON STUDY: Chest CT March 04, 2022. Chest radiograph March 14, 2022. FINDINGS: Lung volumes are normal. Lungs are clear. There is no pneumothorax or pleural effusion. Cardiac size is normal. Mediastinal contours are normal. There is no evidence for pulmonary edema. IMPRESSION: No acute cardiopulmonary findings. ACT 112: Negative or not required by law. Electronically signed by: Quinton Corrales M.D. 08/17/2022 9:14 PM Abdomen/Pelvis CT 08/17/22 20:32 CT OF THE ABDOMEN AND PELVIS WITH CONTRAST CLINICAL HISTORY: Chest and abdominal pain, hx of DVT, pancreatitis COMPARISON STUDY: CT of the abdomen posterior 2021 and right upper quadrant ultrasound and KUB February 07, 2022. TECHNIQUE: Following IV administration of 113 mL of Optiray, axial images of the abdomen and pelvis were obtained from the lung bases to the proximal femurs. Images were reviewed in the axial, sagittal, and coronal planes. IV contrast was administered without complication. Automated exposure control was utilized for the study. A dose lowering technique was utilized adhering to the principles of ALARA. CT DOSE: 1129.97 mGy.cm FINDINGS: No pneumatosis, free air or portal venous gas is present. There is no biliary ductal dilatation status post cholecystectomy. Spleen, adrenal glands and kidneys are unremarkable. There is no hydronephrosis. No peripancreatic infiltration or fluid is present. There are no peripancreatic fluid collections. Marked pancreatic glandular atrophy is noted. This has progressed since CT of August 19, 2021. Interval development of dilatation of the pancreatic duct. The duct measures 6 mm in caliber. There are suspected extensive calculi within the proximal duct, within the pancreatic head. Parenchymal calcifications are again noted. The calculi measure up to approximately 8 mm. An underlying mass could account for the ductal dilatation but is considered less likely. There is no evidence for a bowel obstruction. The appendix is nonvisualized. Bladder wall thickening is unchanged. This is likely chronic. There are no acute fractures. Postoperative findings within the spine are incidentally noted. Upper abdominal collaterals are again noted. IMPRESSION: 1. Progression of pancreatic glandular atrophy with interval development of pancreatic ductal dilatation, likely due to extensive calculi within the duct at the level of the pancreatic head. An occult mass could account for the pancreatic ductal dilatation but is considered less likely. 2. No CT evidence for acute pancreatitis. 3. No bowel obstruction. ACT 112: Negative or not required by law. Electronically signed by: Quinton Corrales M.D. 08/17/2022 10:17 PM Chest CTA 08/17/22 20:32 CT ANGIOGRAPHY OF THE CHEST, PULMONARY EMBOLUS PROTOCOL CLINICAL HISTORY: chest pain, leg DVT. COMPARISON STUDY: Chest CT March 04, 2022 and chest radiograph performed earlier today. TECHNIQUE: Following IV administration of 113 mL of Optiray, helical axial image s of the chest were obtained utilizing the pulmonary embolus protocol. Maximal intensity projections and sagittal and coronal reformats were viewed on an independent 3D workstation. IV contrast was administered without complication. Automated exposure control was utilized for the study. A dose lowering technique was utilized adhering to the principles of ALARA. FINDINGS: No pulmonary emboli are identified. There is no thoracic aortic dissection. The size of the heart is normal. There is no pericardial effusion. No thoracic lymphadenopathy. No consolidation to suggest pneumonia. No pneumothorax or pleural effusion. Abdomen and pelvis CT will be reported separately. IMPRESSION: 1. No pulmonary emboli identified. 2. No acute intrathoracic findings. ACT 112: Negative or not required by law. Electronically signed by: Quinton Corrales M.D. 08/17/2022 9:58 PM Discharge Plan Visit Data Chief Complaint: Chest Pain Stated Complaint: CP with ETOH ED Provider: Martinez Marx Discharge Problem: Retrosternal chest pain, Abdominal pain, acute, epigastric, Intractable abdominal pain, Alcohol abuse, Pancreatic duct stones Forms Stand Alone Forms: [facility] Prescriptions Prescriptions: No Action paroxetine HCl 20 mg tablet 20 mg PO QAM pantoprazole 40 mg Tablet,Delayed Release (Dr/Ec) 40 mg PO QAM Qty: 30 0RF melatonin 3 mg tablet 3 - 6 mg PO HS PRN (Reason: Sleep) acetaminophen [Tylenol] 325 mg capsule 650 mg PO BID PRN (Reason: Fever Or Pain) Eliquis 5 mg tablet 5 mg PO BID naloxone [Narcan] 4 mg/actuation spray,non-aerosol 1 spray INTRANASAL UD Rx Instructions: spray 1 spray nasally as directed for suspected opiod overdose. if no result in 2-5 min, give 2nd dose Jardiance 10 mg tablet 10 mg PO UD Referrals Referrals: Dhiraj Myers, [Primary Care Provider] -
[2022-08-17] MEDS ORDERED: LACTATED RINGER'S 1,000 ML IV SCH (21:15)
--- NOTE | 2022-08-17 21:15 | XRay Report ---
XR chest 1V portable CLINICAL HISTORY: Chest pain, nonspecific COMPARISON STUDY: Chest CT March 04, 2022. Chest radiograph March 14, 2022. FINDINGS: Lung volumes are normal. Lungs are clear. There is no pneumothorax or pleural effusion. Car diac size is normal. Mediastinal contours are normal. There is no evidence for pulmonary edema. IMPRESSION: No acute cardiopulmonary findings. ACT 112: Negative or not required by law. Electronically signed by: Quinton Corrales M.D. 08/17/2022 9:14 PM
[2022-08-17 21:20] LABS: Alanine Aminotransferase 37 U/L (7-52); Albumin Globulin Ratio 1.1 (0.9-2); Albumin Level 4.6 gm/dl (3.4-5.0); Alkaline Phosphatase 69 U/L (34-104); Anion Gap 13 (3-11); Aspartate Aminotransferase 36 U/L (13-39); Bilirubin,Total 0.4 mg/dl (0.2-1.0); Blood Urea Nitrogen 7 mg/dl (6-23); Calcium 10.7 mg/dl (8.5-10.1); Carbon Dioxide 24 mmol/L (21-32); Chloride 101 mmol/L (98-107); Est GFR (African American) 117.7 ml/min; Est GFR (Non-African American) 101.6 ml/min; Globulin 4.1 gm/dl (2.5-4.0); Glucose 312 mg/dl (70-99(Fasting)); Lipase 61 U/L (11-82); Potassium 3.7 mmol/L (3.5-5.1); Sodium 138 mmol/L (136-145); Total Protein 8.7 gm/dl (6.0-8.3); Troponin I High Sensitivity 3.5 pg/ml (0-20)
[2022-08-17] MEDS ORDERED: OPTIRAY 320 500ml IV ONE (21:33)
[2022-08-17] MEDS ORDERED: NovoLIN-R INSULIN PER UNIT CHARGE IV STA (21:39)
--- NOTE | 2022-08-17 21:59 | CT Scan Report ---
CT ANGIOGRAPHY OF THE CHEST, PULMONARY EMBOLUS PROTOCOL CLINICAL HISTORY: chest pain, leg DVT. COMPARISON STUDY: Chest CT March 04, 2022 and chest radiograph performed earlier today. TECHNIQUE: Following IV administration of 113 mL of Optiray, helical axial images of the chest were o btained utilizing the pulmonary embolus protocol. Maximal intensity projections and sagittal and cor onal reformats were viewed on an independent 3D workstation. IV contrast was administered without co mplication. Automated exposure control was utilized for the study. A dose lowering technique was ut ilized adhering to the principles of ALARA. FINDINGS: No pulmonary emboli are identified. There is no thoracic aortic dissection. The size of th e heart is normal. There is no pericardial effusion. No thoracic lymphadenopathy. No consolidation to suggest pneumonia. No pneumothorax or pleural effusion. Abdomen and pelvis CT will be reported separ ately. IMPRESSION: 1. No pulmonary emboli identified. 2. No acute intrathoracic findings. ACT 112: Negative or not required by law. Electronically signed by: Quinton Corrales M.D. 08/17/2022 9:58 PM
--- NOTE | 2022-08-17 22:20 | CT Scan Report ---
CT OF THE ABDOMEN AND PELVIS WITH CONTRAST CLINICAL HISTORY: Chest and abdominal pain, hx of DVT, pancreatitis COMPARISON STUDY: CT of the abdomen 2021 and right upper quadrant ultrasound and KUB Ju 2021. TECHNIQUE: Following IV administration of 113 mL of Optiray, axial images of the abdomen and pelvis w ere obtained from the lung bases to the proximal femurs. Images were reviewed in the axial, sagittal, and coronal planes. IV contrast was administered without complication. Automated exposure control w as utilized for the study. A dose lowering technique was utilized adhering to the principles of TATE [place]. CT DOSE: 1129.97 mGy.cm FINDINGS: No pneumatosis, free air or portal venous gas is present. There is no biliary ductal dilata tion status post cholecystectomy. Spleen, adrenal glands and kidneys are unremarkable. There is no hy dronephrosis. No peripancreatic infiltration or fluid is present. There are no peripancreatic fluid c ollections. Marked pancreatic glandular atrophy is noted. This has progressed since CT of August 19, 2021. Interval development of dilatation of the pancreatic duct. The duct measures 6 mm in caliber. There are suspected extensive calculi within the proximal duct, within the pancreatic head. Parenchym al calcifications are again noted. The calculi measure up to approximately 8 mm. An underlying mass c ould account for the ductal dilatation but is considered less likely. There is no evidence for a adrien l obstruction. The appendix is nonvisualized. Bladder wall thickening is unchanged. This is likely ch ronic. There are no acute fractures. Postoperative findings within the spine are incidentally noted. Upper abdominal collaterals are again noted. IMPRESSION: 1. Progression of pancreatic glandular atrophy with interval development of pancreatic ductal dilatat ion, likely due to extensive calculi within the duct at the level of the pancreatic head. An occult m ass could account for the pancreatic ductal dilatation but is considered less likely. 2. No CT evidence for acute pancreatitis. 3. No bowel obstruction. ACT 112: Negative or not required by law. Electronically signed by: Quniton Corrales M.D. 08/17/2022 10:17 PM
[2022-08-18] MEDS ORDERED: LANTUS PER UNIT CHARGE SQ STA (00:08)
[2022-08-18] MEDS ORDERED: MULTI-VITAMIN INFUSION 10 ML, THIAMINE HCL 100 MG, FOLIC ACID 1 MG in SODIUM CHLORIDE 0... IV STA (00:12)
[2022-08-18] MEDS ORDERED: KETOROLAC TROMETHAMINE 15 MG/ML VIAL IV PRN (00:13)
[2022-08-18] MEDS: oxyCODONE HCL IR 5 MG TAB (IMMEDIATE RELEASE) PO PRN ×3 (00:58→13:25)
--- NOTE | 2022-08-18 01:54 | History & Physical Report ---
Date of Service August 18, 2022 Assessment & Plan (1) Abdominal pain, acute, epigastric: Plan: Possible alcoholic gastritis History GERD/Renae's esophagus history of chronic pain, hx narcotic abuse as per records/terminated medication agreement. ADD/mood disorder as per records DM2 on oral medications, suboptimal control as of recent hemoglobin A1c of 10.1 last April 2022 History alcoholic pancreatitis hx PE as per records, recurrent DVT on Eliquis OBS GMF Analgesia Judicious narcotic use given history drug abuse as per records Continue home PPI IVF DT precautions, initiate RHETT S if with signs of alcohol withdrawal basal bolus insulin, ISS BG goal 110-140, carb count coverage, update hemoglobin A1c DVT prophylaxis Eliquis Full code Text document was generated using [employer] voice recognition software. It may contain grammatical or spelling errors. Kindly contact undersigned for clarification of any documentation item in question. History of Present Illness Chief Complaint: Abdominal pain Primary Care Provider: Dhiraj Myers, History is obtained from the patient and records. Medical history is significant for ADD/mood disorder as per records, DM2 on oral medications, GERD/Renae's esophagus, recurrent alcoholic pancreatitis, hx PE as per records, recurrent DVT on Eliquis, history of chronic pain, hx narcotic abuse as per records/terminated medication agreement. Last confinement February 2022 for pancreatitis and EtOH withdrawal. Patient seen at [facility] in [place] 2 weeks ago for left calf pain. Ultrasound showed focal DVT left gastrocnemius. Patient discharged on Eliquis course. Patient started drinking alcohol again 3 days days ago. Yesterday, patient noted achy epigastric this chest, back associated with nausea symptoms. No black no bloody stools. No fever, no chills. Patient consulted ER for evaluation. Regular insulin given for BSG 300s. MEDICAL HISTORY: As above. SURGERIES: Appendectomy, cholecystectomy, vascular device placement, back surgery FAMILY HISTORY: There is a family history of mood disorder. Alcoholism, heart disease. 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 Allergy/AdvReac Type Severity Reaction Status Date / Time No Known Allergies Allergy Verified 08/17/22 21:11 Home Medications Medication Instructions Recorded Confirmed Type paroxetine HCl 20 mg tablet 20 mg PO QAM 12/20/19 08/17/22 History pantoprazole 40 mg tablet,delayed 40 mg PO QAM #30 tabs 03/01/21 08/17/22 Rx release acetaminophen 325 mg capsule 650 mg PO BID PRN Fever Or Pain 08/17/22 08/17/22 History (Tylenol) apixaban 5 mg tablet (Eliquis) 5 mg PO BID 08/17/22 08/17/22 History empagliflozin 10 mg tablet 10 mg PO UD 08/17/22 08/17/22 History (Jardiance) melatonin 3 mg tablet 3 - 6 mg PO HS PRN Sleep 08/17/22 08/17/22 History naloxone 4 mg/actuation nasal 1 spray intranasal UD opiod over 08/17/22 08/17/22 History spray (Narcan) dose Past Med/Surg History Medical History (Updated 08/18/22 @ 01:01 by Martinez Marx MD) Abdominal pain Abdominal pain Acute hyperglycemia Alcohol abuse (Unknown) Alcohol abuse Alcoholic ketosis Renae's esophagus (Unknown) "per EGD 11/23/09 " On 05/31/11 09:06 Martinez Jose wrote "per EGD 11/23/09 " Chest pain COVID-19 Depression Depression DM type 2 (diabetes mellitus, type 2) Encounter for alcohol abuse counseling and surveillance Encounter for pre-operative examination Encounter for tobacco use cessation counseling H/O acute pancreatitis "recurrent" History of substance abuse Hyperglycemia Intentional drug overdose Lumbar degenerative disc disease Mood disorder Mood disorder Nausea & vomiting Neuropathy Pancreatitis Panic disorder Pulmonary embolism Suicidal ideation Suicidal ideation Suicide attempt Surgical History H/O esophagogastroduodenoscopy "EGD 11/23/2009- mild gastritis, suspicious for gastroparesis, Z-line irregular EUS 02/04/2010- mild chronic pancreatitis, pronounced cholesterolosis of gallbladder, no biliary dilation or stones, probable gastroparesis EGD 10/31/2014- gastritis" S/P lumbar fusion L4-S1 2014 Family History Father Alcohol abuse Social History Smoking Status: Never smoker Tobacco Type: Smokeless Tobacco (Dip or Chew) Second Hand Exposure: No; Do You Dip or Chew Tobacco: Yes; Hx Alcohol Use: Yes Alcohol type: beer Hx Substance Use: No Preferred Language: Romanian Communication Ability: Effective Cheese Packer Required: No Beliefs That Will Affect Care: None marital status: Current Living Situation: Family Current Living Situation Comment: Lives with Viki Dang How many Children do You have: 3 Other Information That Helps Us Care for You: No Feels Safe at Home: Yes Safety Concerns: Feels Safe At This Time Assistive Devices: None Review of Systems Review of Systems: As per HPI, all other systems reviewed and negative Physical Exam Physical Exam: GENERAL: Comfortable, slightly intoxicated,no respiratory distress SKIN: Normal color, warm HEENT: Alopecia, pink palpebral conjunctivae, no ptosis, dry buccal mucosa NECK : Supple, short neck, no tenderness CHEST : CTA, no tenderness HEART :RRR, no obvious murmurs ABDOMEN: Some distention, right-sided abdominal tenderness EXTREMITIES : No LE swelling, LLE tender nodularity NEUROLOGIC : Coherent, no facial asymmetry, gait and stance not assessed Results & Data Results & Data ([facility]) Vital Signs (Past 12 Hours) Vital Signs Temp Pulse Pulse Resp BP BP Pulse Ox 08/18/22 01:30 95 H 16 104/56 L 97 08/18/22 00:00 100 H 16 102/67 93 08/17/22 23:00 109 H 16 112/74 96 08/17/22 22:00 107 H 16 111/69 94 08/17/22 21:00 106 H 16 110/77 93 08/17/22 20:10 36.9 C 104 H 16 123/84 98 O2 Del Method 08/18/22 01:30 Room Air 08/18/22 00:00 Room Air 08/17/22 23:00 Room Air 08/17/22 22:00 Room Air 08/17/22 21:00 Room Air 08/17/22 20:10 Room Air Laboratory Results Laboratory Results WBC 5.20 K/ul (4.8-10.8) 08/17/22 20:00 RBC 5.26 M/uL (4.63-6.08) 08/17/22 20:00 Hgb 17.5 g/dl (14.0-18.0) 08/17/22 20:00 Hct 49.0 % (40.1-51.0) 08/17/22 20:00 MCV 93.2 fL (80.0-100.0) 08/17/22 20:00 MCH 33.3 pg (25.0-34.0) 08/17/22 20: MCHC 35.7 g/dL (32.0-36.0) 08/17/22 20:00 RDW Std Deviation 40.4 fL (36.4-46.3) 08/17/22 20: RDW Coeff of Gucci 11.7 % (11.5-14.5) 08/17/22 20: Plt Count 242 K/uL (130-400) 08/17/22 20:00 MPV 9.6 fL (9.4-12.4) 08/17/22 20:00 Immature Gran % (Auto) 0.2 % 08/17/22 20:00 Neut % (Auto) 61.8 % 08/17/22 20:00 Lymph % (Auto) 26.9 % 08/17/22 20:00 Clark % (Auto) 6.3 % 08/17/22 20:00 Eos % (Auto) 4.2 % 08/17/22 20:00 Baso % (Auto) 0.6 % 08/17/22 20:00 Neut # (Auto) 3.21 K/uL (1.4-6.5) 08/17/22 20:00 Lymph # (Auto) 1.40 K/uL (1.2-3.4) 08/17/22 20:00 Clark # (Auto) 0.33 K/uL (0.24-0.82) 08/17/22 20:00 Eos # (Auto) 0.22 K/uL (0-0.50) 08/17/22 20:00 Baso # (Auto) 0.03 K/uL (0-0.2) 08/17/22 20:00 Immature Gran # (Auto) 0.01 K/uL (0.00-0.02) 08/17/22 20:00 PT 10.2 Seconds (9.0-12.0) 08/17/22 20:00 INR 1.0 (0.9-1.1) 08/17/22 20:00 APTT 25.1 Seconds (21.0-31.0) 08/17/22 20:00 PTT Ratio 0.9 08/17/22 20:00 D-Dimer 240 ug/L FEU (0-500) 08/17/22 20:00 Sodium 138 mmol/L (136-145) 08/17/22 20:00 Potassium 3.7 mmol/L (3.5-5.1) 08/17/22 20:00 Chloride 101 mmol/L (98-107) 08/17/22 20:00 Carbon Dioxide 24 mmol/L (21-32) 08/17/22 20:00 Anion Gap 13 (3-11) H 08/17/22 20:00 BUN 7 mg/dl (6-23) 08/17/22 20:00 Creatinine 0.88 mg/dl (0.6-1.4) 08/17/22 20:00 Est Cr Clr Drug Dosing Not Reportable 08/17/22 20:00 Est GFR ( Amer) 117.7 ml/min 08/17/22 20:00 Est GFR (Non-Af Amer) 101.6 ml/min 08/17/22 20:00 BUN/Creatinine Ratio 8.0 (10-20) L 08/17/22 20:00 Glucose 312 mg/dl (70-99(Fasting)) H* 08/17/22 20:00 POC Glucose 128 mg/dl (70-99) H 08/18/22 00:32 Calcium 10.7 mg/dl (8.5-10.1) H 08/17/22 20:00 Magnesium 2.3 mg/dl (1.7-2.4) 08/17/22 20:00 Total Bilirubin 0.4 mg/dl (0.2-1.0) 08/17/22 20:00 AST 36 U/L (13-39) 08/17/22 20:00 ALT 37 U/L (7-52) 08/17/22 20:00 Alkaline Phosphatase 69 U/L (34-104) 08/17/22 20:00 Troponin I High Sens 3.5 pg/ml (0-20) 08/17/22 20:00 Total Protein 8.7 gm/dl (6.0-8.3) H 08/17/22 20:00 Albumin 4.6 gm/dl (3.4-5.0) 08/17/22 20:00 Globulin 4.1 gm/dl (2.5-4.0) H 08/17/22 20:00 Albumin/Globulin Ratio 1.1 (0.9-2) 08/17/22 20:00 Amylase 44 U/L (25-115) 08/17/22 20:00 Lipase 61 U/L (11-82) 08/17/22 20:00 Ethyl Alcohol mg/dL 192.9 mg/dl (<10.0) H 08/17/22 20:38 SARS-CoV-2, RNA, NAAT NEGATIVE (NEGATIVE) 08/17/22 20:20 Impressions Chest X-Ray 08/17/22 20:13 XR chest 1V portable CLINICAL HISTORY: Chest pain, nonspecific COMPARISON STUDY: Chest CT March 04, 2022. Chest radiograph March 14, 2022. FINDINGS: Lung volumes are normal. Lungs are clear. There is no pneumothorax or pleural effusion. Cardiac size is normal. Mediastinal contours are normal. There is no evidence for pulmonary edema. IMPRESSION: No acute cardiopulmonary findings. ACT 112: Negative or not required by law. Electronically signed by: Quinton Corrales M.D. 08/17/2022 9:14 PM Abdomen/Pelvis CT 08/17/22 20:32 CT OF THE ABDOMEN AND PELVIS WITH CONTRAST CLINICAL HISTORY: Chest and abdominal pain, hx of DVT, pancreatitis COMPARISON STUDY: CT of the abdomen 2021 and right upper quadrant ultrasound and KUB February 07, 2022. TECHNIQUE: Following IV administration of 113 mL of Optiray, axial images of the abdomen and pelvis were obtained from the lung bases to the proximal femurs. Images were reviewed in the axial, sagittal, and coronal planes. IV contrast was administered without complication. Automated exposure control was utilized for the study. A dose lowering technique was utilized adhering to the principles of ALARA. CT DOSE: 1129.97 mGy.cm FINDINGS: No pneumatosis, free air or portal venous gas is present. There is no biliary ductal dilatation status post cholecystectomy. Spleen, adrenal glands and kidneys are unremarkable. There is no hydronephrosis. No peripancreatic infiltration or fluid is present. There are no peripancreatic fluid collections. Marked pancreatic glandular atrophy is noted. This has progressed since CT of August 19, 2021. Interval development of dilatation of the pancreatic duct. The duct measures 6 mm in caliber. There are suspected extensive calculi within the proximal duct, within the pancreatic head. Parenchymal calcifications are again noted. The calculi measure up to approximately 8 mm. An underlying mass could account for the ductal dilatation but is considered less likely. There is no evidence for a bowel obstruction. The appendix is nonvisualized. Bladder wall thickening is unchanged. This is likely chronic. There are no acute fractures. Postoperative findings within the spine are incidentally noted. Upper abdominal collaterals are again noted. IMPRESSION: 1. Progression of pancreatic glandular atrophy with interval development of pancreatic ductal dilatation, likely due to extensive calculi within the duct at the level of the pancreatic head. An occult mass could account for the pancreatic ductal dilatation but is considered less likely. 2. No CT evidence for acute pancreatitis. 3. No bowel obstruction. ACT 112: Negative or not required by law. Electronically signed by: Quinton Corrales M.D. 08/17/2022 10:17 PM Chest CTA 08/17/22 20:32 CT ANGIOGRAPHY OF THE CHEST, PULMONARY EMBOLUS PROTOCOL CLINICAL HISTORY: chest pain, leg DVT. COMPARISON STUDY: Chest CT March 04, 2022 and chest radiograph performed earlier today. TECHNIQUE: Following IV administration of 113 mL of Optiray, helical axial images of the chest were obtained utilizing the pulmonary embolus protocol. Maximal intensity projections and sagittal and coronal reformats were viewed on an independent 3D workstation. IV contrast was administered without complication. Automated exposure control was utilized for the study. A dose lowering technique was utilized adhering to the principles of ALARA. FINDINGS: No pulmonary emboli are identified. There is no thoracic aortic dissection. The size of the heart is normal. There is no pericardial effusion. No thoracic lymphadenopathy. No consolidation to suggest pneumonia. No pneumothorax or pleural effusion. Abdomen and pelvis CT will be reported separately. IMPRESSION: 1. No pulmonary emboli identified. 2. No acute intrathoracic findings. ACT 112: Negative or not required by law. Electronically signed by: Quinton Corrales M.D. 08/17/2022 9:58 PM Diagnostic Findings EKG as per my interpretation : Rate 105, sinus tachycardia, normal axis, T wave abnormalities septal leads
[2022-08-18] MEDS ORDERED: LORazepam 2 MG/1 ML VIAL IV PRN (01:57)
[2022-08-18] MEDS ORDERED: PROMETHAZINE HCL 12.5 MG in SODIUM CHLORIDE 0.9% 50 ML IV PRN (01:57)
[2022-08-18] MEDS ORDERED: PANTOprazole 40 MG in SYRINGE 0 ML IV STA (02:02)
[2022-08-18] MEDS ORDERED: CARBOHYDRATES FOR HYPOGLYCEMIA PO PRN (03:01)
[2022-08-18] MEDS ORDERED: GLUCOSE 10 TAB/TUBE PO PRN (03:01)
[2022-08-18] MEDS ORDERED: GLUCAGON FOR INJ 1 MG VIAL SQ PRN (03:01)
[2022-08-18] MEDS ORDERED: DEXTROSE 50% 50 ML SYRINGE IV PRN (03:01)
[2022-08-18] MEDS ORDERED: GLUCOSE 40% GEL 15 GM TUBE PO PRN (03:01)
[2022-08-18] MEDS ORDERED: ACETAMINOPHEN 325 MG TAB PO PRN (03:18)
[2022-08-18] MEDS: INSULIN ASPART PER UNIT SC SCH ×3 (03:53→11:55)
[2022-08-18 06:25] LABS: Appearance Urine Clear (Clear); Bilirubin Urine Negative (Negative); Blood Urine Negative (Negative); Color Urine Dark Yellow; Glucose Urine UA 3+ (Negative); Ketones Urine Trace (Negative); Leukocyte Esterase Urine Negative (Negative); Nitrite Urine Negative (Negative); Protein Urine Negative (Negative); Specific Gravity Urine > 1.045 (1.000-1.030); Urobilinogen Urine Negative (Negative)
[2022-08-18 06:27] LABS: Basophils # (auto) 0.04 K/uL (0-0.2); Basophils % (auto) 0.8 %; Eosinophils # (auto) 0.24 K/uL (0-0.50); Hemoglobin 13.7 g/dl (14.0-18.0); Immature Granulocytes # (auto) 0.01 K/uL (0.00-0.02); Immature Granulocytes % (auto) 0.2 %; Lymphocytes # (auto) 1.25 K/uL (1.2-3.4); Lymphocytes % (auto) 25.9 %; Mean Corpuscular Hemoglobin 33.7 pg (25.0-34.0); Mean Corpuscular Hgb Conc 36.1 g/dL (32.0-36.0); Mean Corpuscular Volume 93.4 fL (80.0-100.0); Mean Platelet Volume 9.4 fL (9.4-12.4); Monocytes # (auto) 0.47 K/uL (0.24-0.82); Monocytes % (auto) 9.8 %; Neutrophils # (auto) 2.81 K/uL (1.4-6.5); Neutrophils % (auto) 58.3 %; Platelet Count 188 K/uL (130-400); RDW Coefficient of Variation 11.8 % (11.5-14.5); RDW Standard Deviation 40.1 fL (36.4-46.3); Red Blood Count 4.07 M/uL (4.63-6.08); White Blood Count 4.82 K/ul (4.8-10.8)
[2022-08-18 06:29] LABS: BUN Creatinine Ratio 8.7 (10-20); Calcium 8.9 mg/dl (8.5-10.1); Creatinine Clr Calc Pharmacy 143.7 ml/min; Est GFR (African American) 130.1 ml/min; Est GFR (Non-African American) 112.3 ml/min; Potassium 3.7 mmol/L (3.5-5.1)
[2022-08-18 07:07] LABS: Estimated Average Glucose 223 mg/dl; Hemoglobin A1C 9.4 % (4.5-5.6)
[2022-08-18] MEDS ORDERED: APIXABAN 5 MG TABLET PO SCH (09:00)
[2022-08-18] MEDS ORDERED: PARoxetine HCL 20 MG TAB PO SCH (09:00)
--- NOTE | 2022-08-18 09:09 | Electrocardiogram Report ---
Test Reason : Blood Pressure : / mmHG Vent. Rate : 107 BPM Atrial Rate : 107 BPM P-R Int : 148 ms QRS Dur : 074 ms QT Int : 330 ms P-R-T Axes : 062 040 056 degrees QTc Int : 440 ms Sinus tachycardia Otherwise normal ECG When compared with ECG of 14-MAR-2022 20:40, No significant change was found Confirmed by Mundo Ordonez ([id number]) on 08/18/2022 9:08:24 AM Referred By: REFERRED SELF Confirmed By:Mundo Ordonez
[2022-08-18 11:11] VITALS: BP 92/54; TEMP 98.2; O2SAT 97
[2022-08-18 15:11] VITALS: PULSE 95
--- NOTE | 2022-08-18 15:15 | Discharge Summary ---
Date of Service August 18, 2022 Admission HPI Per Admitting Provider History is obtained from the patient and records. Medical history is significant for ADD/mood disorder as per records, DM2 on oral medications, GERD/Renae's esophagus, recurrent alcoholic pancreatitis, hx PE as per records, recurrent DVT on Eliquis, history of chronic pain, hx narcotic abuse as per records/terminated medication agreement. Last confinement February 2022 for pancreatitis and EtOH withdrawal. Patient seen at [facility] in [place] 2 weeks ago for left calf pain. Ultrasound showed focal DVT left gastrocnemius. Patient discharged on Eliquis course. Patient started drinking alcohol again 3 days days ago. Yesterday, patient noted achy epigastric this chest, back associated with nausea symptoms. No black no bloody stools. No fever, no chills. Patient consulted ER for evaluation. Regular insulin given for BSG 300s. MEDICAL HISTORY: As above. SURGERIES: Appendectomy, cholecystectomy, vascular device placement, back surgery FAMILY HISTORY: There is a family history of mood disorder. Alcoholism, heart disease. 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 ADD/mood disorder as per records DM2 on oral medications, suboptimal control as of recent hemoglobin A1c of 10.1 last April 2022 History alcoholic pancreatitis hx PE as per records, recurrent DVT on Eliquis OBS GMF Analgesia Judicious narcotic use given history drug abuse as per records Continue home PPI IVF DT precautions, initiate RHETT S if with signs of alcohol withdrawal basal bolus insulin, ISS BG goal 110-140, carb count coverage, update hemoglobin A1c DVT prophylaxis Eliquis Full code Text document was generated using [employer] voice recognition software. It may contain grammatical or spelling errors. Kindly contact undersigned for clarification of any documentation item in question. Discharge Plan Discharge Items Patient Disposition: Home - Self-Care Reason For Visit: ABD PAIN Discharge Diagnosis: Abdominal pain Alcohol abuse Activity: Resume your previous activity Non-emergency contact: Primary Care Provider and Breakfast Hostess Call non-emergency contact if: you have any medication questions, your symptoms worsen, your pain is worsening and your pain is concerning for you Follow-up/Referrals: Dhiraj Myers DO [Primary Care Provider] - (Date & Time 08/25/2022 3:00 PM Provider Brandie Galvez DO [facility] ) Marika Parrish CRNP [Nurse Practitioner] - Diet: Carb Consistent or DM2 Addtl Attending Provider Instructions: Follow up with your primary care provider 08/25/2022 @3:00 PM Brandie Galvez DO [facility] Follow up with gastroenterology to arrange for outpatient endoscopy ultrasound to evaluate your pancreas ( your provider will place the referral) Counselling on alcohol cessation Seek urgent medical attention if you develop symptoms of alcohol withdrawal such as tremors, anxiety, palpitation,... Continue follow a healthy diabetes diet and limited concentrated sweet intake Pending Studies at Discharge: No Stand-Alone Forms: [facility] [employer], Smoking Cessation Medications and DC Order Prescriptions: New thiamine HCl (vitamin B1) 100 mg Tablet 100 mg PO QAM Qty: 30 0RF folic acid 1 mg Tablet 1 mg PO QAM Qty: 30 0RF Continued paroxetine HCl 20 mg tablet 20 mg PO QAM pantoprazole 40 mg Tablet,Delayed Release (Dr/Ec) 40 mg PO QAM Qty: 30 0RF melatonin 3 mg tablet 3 - 6 mg PO HS PRN (Reason: Sleep) acetaminophen [Tylenol] 325 mg capsule 650 mg PO BID PRN (Reason: Fever Or Pain) Eliquis 5 mg tablet 5 mg PO BID naloxone [Narcan] 4 mg/actuation spray,non-aerosol 1 spray INTRANASAL UD Rx Instructions: spray 1 spray nasally as directed for suspected opiod overdose. if no result in 2-5 min, give 2nd dose Jardiance 10 mg tablet 10 mg PO UD Discharge Orders: Discharge Order (Routine); Ordered 08/18/22 Ordered By: Beau Gonzalez Admission Data Admit Date/Time: 08/18/22 01:55 Attending Provider: Beau Gonzalez Admit Provider: Bishop Enamorado Primary Care Provider: Dhiraj Myers Other Interventions: Discharge Summary Assessment (RN) Last Done: 08/18/22 15:02
[2022-08-18] MEDS ORDERED: LANTUS PER UNIT CHARGE SQ SCH (21:00)
[2022-08-19] MEDS ORDERED: FOLIC ACID 1 MG TAB PO SCH (09:00)
[2022-08-19] MEDS ORDERED: THIAMINE HCL 100 MG TAB PO SCH (09:00)
[2022-08-19] MEDS ORDERED: MULTIVITAMIN TAB PO SCH (09:00)
[2022-08-19] MEDS ORDERED: PANTOprazole 40 MG TAB PO SCH (09:00)
== END 2022-08-18 15:28 | disposition home or self-care (01) ==
LOC: 2W 19:50 → ED 19:50 → 2W 08-18 03:18

== ENCOUNTER 2022-10-19 20:21 | Inpatient (IN) ==
[2022-10-19 21:19] LABS: Basophils # (auto) 0.04 K/uL (0-0.2); Basophils % (auto) 0.7 %; Eosinophils % (auto) 3.6 %; Hematocrit (blood only) 42.6 % (42.0-52.0); Hemoglobin 15.2 g/dl (14.0-18.0); Immature Granulocytes # (auto) 0.01 K/uL (0.01-0.20); Immature Granulocytes % (auto) 0.2 %; Lymphocytes % (auto) 27.3 %; Mean Corpuscular Hgb Conc 35.7 g/dL (32.0-36.0); Mean Corpuscular Volume 92.4 fL (80.0-100.0); Mean Platelet Volume 9.2 fL (9.4-12.4); Monocytes # (auto) 0.52 K/uL (0.11-0.59); Monocytes % (auto) 9.5 %; Neutrophils # (auto) 3.22 K/uL (1.40-6.50); Neutrophils % (auto) 58.7 %; Platelet Count 170 K/uL (130-400); RDW Coefficient of Variation 11.2 % (11.5-14.5); RDW Standard Deviation 38.1 fL (36.4-46.3); Red Blood Count 4.61 M/uL (4.70-6.10); White Blood Count 5.49 K/ul (4.8-10.8)
[2022-10-19 21:39] LABS: Appearance Urine Clear (Clear); Bilirubin Urine Negative (Negative); Blood Urine Negative (Negative); Color Urine Yellow; Glucose Urine UA 3+ (Negative); Ketones Urine Negative (Negative); Leukocyte Esterase Urine Negative (Negative); Nitrite Urine Negative (Negative); Protein Urine Negative (Negative); Specific Gravity Urine 1.008 (1.000-1.030); Urobilinogen Urine Negative (Negative)
[2022-10-19 21:42] LABS: Albumin Globulin Ratio 1.2 (0.9-2); Albumin Level 4.3 gm/dl (3.4-5.0); BUN Creatinine Ratio 5.4 (10-20); Bilirubin,Total 0.6 mg/dl (0.2-1.0); Calcium 9.7 mg/dl (8.5-10.1); Creatinine Clr Calc Pharmacy 107.8 ml/min; Est GFR (African American) 113.6 ml/min; Globulin 3.7 gm/dl (2.5-4.0); Potassium 4.1 mmol/L (3.5-5.1)
[2022-10-19] MEDS ORDERED: NovoLIN-R INSULIN PER UNIT CHARGE IV STA (21:59)
[2022-10-19] MEDS ORDERED: SODIUM CHLORIDE 0.9% 1000ML 2,000 ML IV ONE (21:59)
[2022-10-19] MEDS ORDERED: ONDANSETRON INJ 2 MG/ML 2 ML VIAL IV STA (22:01)
[2022-10-19] MEDS ORDERED: MoRPHine SULFATE 4 MG/ML 1 ML CARP\\VIAL IV STA (22:01)
--- NOTE | 2022-10-19 22:03 | Emergency Department Note ---
Impression & Plan Acute alcoholic pancreatitis, Intractable abdominal pain, Alcohol abuse ED Provider Note NAME: RIKY MELTON AGE: 46 SEX: M : 1975 ARRIVES VIA: Walk-In INFORMANT: Patient ED PROVIDER(S): Geoff Andrade DO CHIEF COMPLAINT: Abdominal pain HPI: Patient is a 46-year-old male who presents to the ER for periumbilical abdominal pain associate with nausea and vomiting. Patient notes that he recently started drinking again earlier this month. He drinks about 15 beers a day. Does have a history of pancreatitis and notes that this feels exactly the same. Radiates through to the back and up into the lower portion of rib cage. Denies any headache or change in vision. No dysuria, urgency, or frequency. No other exacerbating or remitting factors. PAST MEDICAL HISTORY:See Below PAST SURGICAL HISTORY:See Below FAMILY HISTORY:See Below SOCIAL HISTORY:See Below HOME MEDICATIONS:See Below ALLERGIES:See Below VITALS:See Below PHYSICAL EXAMINATION: GENERAL: Sitting up in bed, alert, mild distress holding abdomen EYE EXAM: normal conjunctiva. OROPHARYNX:mucous membranes are moist LUNGS: Clear to auscultation. Normal chest wall mechanics HEART: no murmurs, S1 normal and S2 normal ABDOMEN: abdomen soft, diffusely tender to palpation, normo-active bowel sounds, no masses, no rebound or guarding. UPPER EXTREMITIES: upper extremities are grossly normal. LOWER EXTREMITIES: No pitting edema. NEURO EXAM: Normal sensorium, cranial nerves II-XII grossly intact, normal speech, no gross weakness of arms, no gross weakness of legs. MEDICAL DECISION MAKING: Patient is a 46-year-old male presents the ER for the above-stated complaint. IV was established blood work was obtained. Labs show no significant leukocytosis or anemia. BMP with mild hyponatremia at 127. Glucose elevated at 400. Patient was given IV fluids and insulin. This did trend down to 140. LFTs bilirubin was unremarkable. Lipase at 93. UA was clean. Alcohol was 300. CT abdomen pelvis showed an enteritis per stat read. He was still having a fair amount of pain and was given IV morphine and Zofran prior to results the alcohol. Following this he was given Toradol. He was updated bedside. Still having a significant mount of pain and was consequently discussed with hospitalist for further evaluation management of likely acute on chronic pancreatitis. Triage Nursing notes reviewed. Limited review of prior medical records performed Vital Signs: reviewed and remarkable for tachy Differential diagnosis: Differential diagnoses includes but is not limited to gastritis, peptic ulcer disease, GERD, gallbladder disease, pancreatitis, small bowel obstruction, appendicitis, diverticulitis, hernia, urinary tract infection, torsion, perforation, trauma, infectious. ER treatment provided: See below Diagnostics interpreted by me include EKG and cardiac monitoring as listed below: -Cardiac Monitoring: An order was placed for continuous cardiac monitoring. The monitor shows a rate of 92 with sinus rhythm. -ECG: none -Laboratory studies:Interpreted by me as stated above in MDM and shown below. Imaging studies: Xrays: As interpreted by me:none CTs show: CT abdomen pelvis shows enteritis Consultation(s): As described in [facility] Procedures:none Critical Care: None Past Med/Surg History Medical History (Updated 10/20/22 @ 01:09 by Geoff Andrade DO) Abdominal pain Abdominal pain Abdominal pain, acute, epigastric Acute hyperglycemia Alcohol abuse (Unknown) Alcohol abuse Alcohol abuse Alcohol withdrawal Alcoholic ketosis Renae's esophagus (Unknown) "per EGD 11/23/09 " On 05/31/11 09:06 Martinez Jose wrote "per EGD 11/23/09 " Chest pain COVID-19 Depression Depression DM type 2 (diabetes mellitus, type 2) Encounter for alcohol abuse counseling and surveillance Encounter for pre-operative examination Encounter for tobacco use cessation counseling H/O acute pancreatitis "recurrent" History of substance abuse Hyperglycemia Intentional drug overdose Lumbar degenerative disc disease Mood disorder Mood disorder Nausea & vomiting Neuropathy Pancreatic duct stones Pancreatitis Panic disorder Pulmonary embolism Retrosternal chest pain Suicidal ideation Suicidal ideation Suicide attempt Surgical History H/O esophagogastroduodenoscopy "EGD 11/23/2009- mild gastritis, suspicious for gastroparesis, Z-line irregular EUS 02/04/2010- mild chronic pancreatitis, pronounced cholesterolosis of gallbladder, no biliary dilation or stones, probable gastroparesis EGD 10/31/2014- gastritis" S/P lumbar fusion L4-S1 2014 Family History Father Alcohol abuse Social History Smoking Status: Never smoker Tobacco Type: Smokeless Tobacco (Dip or Chew) Second Hand Exposure: No; Hx Alcohol Use: Yes Alcohol type: beer Hx Substance Use: No Preferred Language: Luxembourgish Communication Ability: Effective Scientist Required: No Beliefs That Will Affect Care: None marital status: Current Living Situation: Family Current Living Situation Comment: Lives with Viki Dang How many Children do You have: 3 Feels Safe at Home: Yes Assistive Devices: None Allergies Allergies Allergy/AdvReac Type Severity Reaction Status Date / Time No Known Allergies Allergy Verified 10/19/22 23:53 Home Meds Home Medications Medication Instructions Recorded Confirmed paroxetine HCl 20 mg tablet 20 mg PO QAM 12/20/19 10/20/22 acetaminophen 325 mg capsule 650 mg PO BID PRN Fever Or Pain 08/17/22 10/20/22 (Tylenol) apixaban 5 mg tablet (Eliquis) 5 mg PO BID 08/17/22 10/19/22 glipizide 5 mg tablet, extended 5 mg PO DAILYBB 10/20/22 10/20/22 release 24 hr hydroxyzine pamoate 25 mg capsule 25 mg PO BID PRN Anxiety 10/20/22 10/20/22 Previous Rx's Medication Instructions Recorded pantoprazole 40 mg tablet,delayed 40 mg PO QAM #30 tabs 03/01/21 release Results & Data (ED) Vital Signs Vital Signs - 24 hr 10/19/22 20:26 10/19/22 23:29 Temperature 36.4 C L Temperature Source Temporal Artery Scan Pulse Rate 101 H Pulse Rate [Finger] 97 H Pulse Rhythm [Finger] Regular Pulse Strength [Finger] Normal Respiratory Rate 16 18 Respiratory Effort / Characteristics Non-Labored Spontaneous Respiratory Depth Normal Blood Pressure 128/81 Blood Pressure [Right Arm] 118/82 Blood Pressure Mean 96 Blood Pressure Mean [Right Arm] 94 Blood Pressure Position [Right Arm] Lying Pulse Oximetry 100 98 Oxygen Delivery Method Room Air Room Air Sepsis Recent Fever Within 48 Hours No Sepsis New/Unexplained Change in Mental Status N/A Sepsis Action Taken by Nursing No Action Required Laboratory Data 10/19/22 20:49 10/19/22 20:49 Lab Results 10/19/22 10/19/22 10/19/22 Range/Units 20:49 20:49 20:49 WBC 5.49 (4.8-10.8) K/ul RBC 4.61 L (4.70-6.10) M/uL Hgb 15.2 (14.0-18.0) g/dl Hct 42.6 (42.0-52.0) % MCV 92.4 (80.0-100.0) fL MCH 33.0 (25.0-34.0) pg MCHC 35.7 (32.0-36.0) g/dL RDW Std Deviation 38.1 (36.4-46.3) fL RDW Coeff of Gucci 11.2 L (11.5-14.5) % Plt Count 170 (130-400) K/uL MPV 9.2 L (9.4-12.4) fL Immature Gran % (Auto) 0.2 % Neut % (Auto) 58.7 % Lymph % (Auto) 27.3 % Anson % (Auto) 9.5 % Eos % (Auto) 3.6 % Baso % (Auto) 0.7 % Neut # (Auto) 3.22 (1.40-6.50) K/uL Lymph # (Auto) 1.50 (1.2-3.4) K/uL Anson # (Auto) 0.52 (0.11-0.59) K/uL Eos # (Auto) 0.20 (0-0.50) K/uL Baso # (Auto) 0.04 (0-0.2) K/uL Immature Gran # (Auto) 0.01 (0.01-0.20) K/uL Sodium 127 L (136-145) mmol/L Potassium 4.1 (3.5-5.1) mmol/L Chloride 94 L (98-107) mmol/L Carbon Dioxide 22 (21-32) mmol/L Anion Gap 11 (3-11) BUN 5 L (6-23) mg/dl Creatinine 0.92 (0.6-1.4) mg/dl Est Cr Clr Drug Dosing 107.8 ml/min Est GFR ( Amer) 113.6 ml/min Est GFR (Non-Af Amer) 98.0 ml/min BUN/Creatinine Ratio 5.4 L (10-20) Glucose 404 H* (70-99(Fasting)) mg/dl POC Glucose (70-99) mg/dl Calcium 9.7 (8.5-10.1) mg/dl Total Bilirubin 0.6 (0.2-1.0) mg/dl AST 41 H (13-39) U/L ALT 38 (7-52) U/L Alkaline Phosphatase 71 (34-104) U/L Total Protein 8.0 (6.0-8.3) gm/dl Albumin 4.3 (3.4-5.0) gm/dl Globulin 3.7 (2.5-4.0) gm/dl Albumin/Globulin Ratio 1.2 (0.9-2) Lipase 93 H (11-82) U/L Urine Color Urine Appearance (Clear) Urine pH (4.5-7.5) Ur Specific Erie (1.000-1.030) Urine Protein (Negative) Urine Glucose (UA) (Negative) Urine Ketones (Negative) Urine Blood (Negative) Urine Nitrite (Negative) Urine Bilirubin (Negative) Urine Urobilinogen (Negative) Ur Leukocyte Esterase (Negative) Ethyl Alcohol mg/dL 305.8 H (<10.0) mg/dl SARS-CoV-2, RNA, NAAT (NEGATIVE) 10/19/22 10/19/22 10/19/22 Range/Units 23:16 23:40 Unknown WBC (4.8-10.8) K/ul RBC (4.70-6.10) M/uL Hgb (14.0-18.0) g/dl Hct (42.0-52.0) % MCV (80.0-100.0) fL MCH (25.0-34.0) pg MCHC (32.0-36.0) g/dL RDW Std Deviation (36.4-46.3) fL RDW Coeff of Gucci (11.5-14.5) % Plt Count (130-400) K/uL MPV (9.4-12.4) fL Immature Gran % (Auto) % Neut % (Auto) % Lymph % (Auto) % Anson % (Auto) % Eos % (Auto) % Baso % (Auto) % Neut # (Auto) (1.40-6.50) K/uL Lymph # (Auto) (1.2-3.4) K/uL Anson # (Auto) (0.11-0.59) K/uL Eos # (Auto) (0-0.50) K/uL Baso # (Auto) (0-0.2) K/uL Immature Gran # (Auto) (0.01-0.20) K/uL Sodium (136-145) mmol/L Potassium (3.5-5.1) mmol/L Chloride (98-107) mmol/L Carbon Dioxide (21-32) mmol/L Anion Gap (3-11) BUN (6-23) mg/dl Creatinine (0.6-1.4) mg/dl Est Cr Clr Drug Dosing ml/min Est GFR ( Amer) ml/min Est GFR (Non-Af Amer) ml/min BUN/Creatinine Ratio (10-20) Glucose (70-99(Fasting)) mg/dl POC Glucose 149 H (70-99) mg/dl Calcium (8.5-10.1) mg/dl Total Bilirubin (0.2-1.0) mg/dl AST (13-39) U/L ALT (7-52) U/L Alkaline Phosphatase (34-104) U/L Total Protein (6.0-8.3) gm/dl Albumin (3.4-5.0) gm/dl Globulin (2.5-4.0) gm/dl Albumin/Globulin Ratio (0.9-2) Lipase (11-82) U/L Urine Color Yellow Urine Appearance Clear (Clear) Urine pH 5.0 (4.5-7.5) Ur Specific Erie 1.008 (1.000-1.030) Urine Protein Negative (Negative) Urine Glucose (UA) 3+ H (Negative) Urine Ketones Negative (Negative) Urine Blood Negative (Negative) Urine Nitrite Negative (Negative) Urine Bilirubin Negative (Negative) Urine Urobilinogen Negative (Negative) Ur Leukocyte Esterase Negative (Negative) Ethyl Alcohol mg/dL (<10.0) mg/dl SARS-CoV-2, RNA, NAAT NEGATIVE (NEGATIVE) Administered Medications Discontinued Medications Sodium Chloride (Nss 1000ml) 2,000 mls @ 999 mls/hr IV .Q2H1M ONE Stop: 10/19/22 23:59 Last Infusion: 10/19/22 23:46 Dose: 0 mls/hr Documented By: Admin: 10/19/22 22:10 Dose: 999 mls/hr Documented By: AGUSTÍN Insulin Human Regular (Novolin-R Insulin Per Unit Charge) 6 units IV NOW STA Stop: 10/19/22 22:00 Last Admin: 10/19/22 22:15 Dose: 6 units Documented By: AGUSTÍN Co-signed By: MONIKA Ioversol (Optiray 350 100ml) 85 ml IV ONCE ONE Stop: 10/19/22 22:26 Last Admin: 10/19/22 22:30 Dose: 85 ml Documented By: SERGIO Ketorolac Tromethamine (Ketorolac Tromethamine 15 Mg/Ml Vial) 15 mg IV NOW ONE Stop: 10/19/22 23:04 Last Admin: 10/19/22 23:22 Dose: 15 mg Documented By: AGUSTÍN Morphine Sulfate (Morphine Sulfate 4 Mg/Ml 1 Ml Carp\\Vial) 4 mg IV NOW STA Stop: 10/19/22 22:02 Last Admin: 10/19/22 22:12 Dose: 4 mg Documented By: AGUSTÍN Ondansetron HCl (Ondansetron Inj 2 Mg/Ml 2 Ml Vial) 4 mg IV NOW STA Stop: 10/19/22 22:02 Last Admin: 10/19/22 22:11 Dose: 4 mg Documented By: AGUSTÍN Imaging Data Radiologist's Impression: Abdomen/Pelvis CT 10/19/22 21:59 Exam(s): CT ABDOMEN + PELVIS With Contrast EXAM: CT Abdomen and Pelvis With Intravenous Contrast CLINICAL HISTORY: Reason for exam: abd pain n/v. TECHNIQUE: Axial computed tomography images of the abdomen and pelvis with intravenous contrast. Automated exposure control was utilized for the study. A dose lowering technique was utilized adhering to the principles of ALARA. CONTRAST: Contrast must be dictated COMPARISON: Comparison made to prior CT scan of abdomen and pelvis from January 01, 2020. FINDINGS: Lung bases: Unremarkable. No mass. No consolidation. ABDOMEN: Liver: Hepatic steatosis. No mass. Gallbladder and bile ducts: Status post cholecystectomy. No ductal dilation. Pancreas: Atrophic with numerous coarse calcifications consistent with remote pancreatitis. No mass. No ductal dilation. Spleen: There are numerous splenic varicosities. No splenomegaly. Adrenals: Unremarkable. No mass. Kidneys and ureters: Unremarkable. No solid mass. No hydronephrosis. Stomach and bowel: There is thickening and edema of the descending and sigmoid colon wall. Scars are. PELVIS: Appendix: No findings to suggest acute appendicitis. Bladder: Distended No mass. Reproductive: Unremarkable as visualized. ABDOMEN and PELVIS: Intraperitoneal space: Unremarkable. No free air. No significant fluid collection. Bones/joints: Posterior decompression, posterior and interbody fusion of L4, L5 and S1. No acute fracture. No dislocation. Soft tissues: Unremarkable. Vasculature: Unremarkable. No abdominal aortic aneurysm. Lymph nodes: Unremarkable. No enlarged lymph nodes. IMPRESSION: Findings concerning for colitis of the descending and sigmoid colon, which may be of infectious or inflammatory etiologies. Hepatic steatosis. Status post cholecystectomy. Electronically signed by: Manda Culp MD 10/19/22 23:04 PM Discharge Plan Visit Data Chief Complaint: Pain (Generalized) Stated Complaint: ABDOMINAL/CHEST/BACK PAIN,HX CHRONIC PANCREATITIS ED Provider: Geoff Andrade Discharge Problem: Acute alcoholic pancreatitis, Intractable abdominal pain, Alcohol abuse Forms Stand Alone Forms: My [facility] AddMyBest Prescriptions Prescriptions: No Action paroxetine HCl 20 mg tablet 20 mg PO QAM pantoprazole 40 mg Tablet,Delayed Release (Dr/Ec) 40 mg PO QAM Qty: 30 0RF acetaminophen [Tylenol] 325 mg capsule 650 mg PO BID PRN (Reason: Fever Or Pain) Eliquis 5 mg tablet 5 mg PO BID glipizide 5 mg tablet extended release 24hr 5 mg PO DAILYBB hydroxyzine pamoate 25 mg capsule 25 mg PO BID PRN (Reason: Anxiety) Referrals Referrals: Dhiraj Myers DO [Primary Care Provider] -
[2022-10-19] MEDS ORDERED: OPTIRAY 350 100ml IV ONE (22:25)
[2022-10-19] MEDS ORDERED: KETOROLAC TROMETHAMINE 15 MG/ML VIAL IV ONE (23:03)
--- NOTE | 2022-10-19 23:04 | CT Scan Report ---
Exam(s): CT ABDOMEN + PELVIS With Contrast EXAM: CT Abdomen and Pelvis With Intravenous Contrast CLINICAL HISTORY: Reason for exam: abd pain n/v. TECHNIQUE: Axial computed tomography images of the abdomen and pelvis with intravenous contrast. Automated exposure control was utilized for the study. A dose lowering technique was utilized adhering to the principles of ALARA. CONTRAST: Contrast must be dictated COMPARISON: Comparison made to prior CT scan of abdomen and pelvis from January 01, 2020. FINDINGS: Lung bases: Unremarkable. No mass. No consolidation. ABDOMEN: Liver: Hepatic steatosis. No mass. Gallbladder and bile ducts: Status post cholecystectomy. No ductal dilation. Pancreas: Atrophic with numerous coarse calcifications consistent with remote pancreatitis. No mass. No ductal dilation. Spleen: There are numerous splenic varicosities. No splenomegaly. Adrenals: Unremarkable. No mass. Kidneys and ureters: Unremarkable. No solid mass. No hydronephrosis. Stomach and bowel: There is thickening and edema of the descending and sigmoid colon wall. Scars are. PELVIS: Appendix: No findings to suggest acute appendicitis. Bladder: Distended No mass. Reproductive: Unremarkable as visualized. ABDOMEN and PELVIS: Intraperitoneal space: Unremarkable. No free air. No significant fluid collection. Bones/joints: Posterior decompression, posterior and interbody fusion of L4, L5 and S1. No acute fracture. No dislocation. Soft tissues: Unremarkable. Vasculature: Unremarkable. No abdominal aortic aneurysm. Lymph nodes: Unremarkable. No enlarged lymph nodes. IMPRESSION: Findings concerning for colitis of the descending and sigmoid colon, which may be of infectious or inflammatory etiologies. Hepatic steatosis. Status post cholecystectomy. Electronically signed by: Manda Culp MD 10/19/22 23:04 PM
--- NOTE | 2022-10-20 02:02 | History and Physical Report ---
DATE OF ADMISSION: 10/19/2022 CHIEF COMPLAINT: Abdominal pain. HISTORY OF PRESENT ILLNESS: This is a 46-year-old male with past medical history significant for ADHD, mood disorder as per records, history of diabetes, on oral medications, GERD, Renae's esophagus, history of recurrent alcoholic pancreatitis, history of PE, history of recurrent DVT and currently on Eliquis, seems to recently had DVT in the left gastrocnemius, history of chronic pain, history of narcotic abuse as per records, terminated medication agreement, history of multiple admissions for pancreatitis and alcoholism. The patient himself states that he has had 15 episodes of pancreatitis in the last 3 years. He says he is trying to quit alcohol but relapses.. He says he quit 3 months ago recently and again he started 2 weeks ago drinking 10 beers every day. Noticed severe abdominal pain, band-like going to the back, also some nausea and also some chest pain when taking deep breath. That is the reason he came to the ER and he also had several episodes of diarrhea today. Denies any blood in the stools. Normal bladder movements. Has some nausea, but no vomiting, some shortness of breath and having some cough with whitish yellow phlegm. Denies any fevers, no headache, no earache. Has some runny nose. No sore throat. Hemodynamically stable. ALLERGIES: No known drug allergies. PAST MEDICAL HISTORY: As mentioned above. PAST SURGICAL HISTORY: History of EGDs, EGD with endoscopic ultrasound, lumbar fusion surgery. Surgical history also significant for appendectomy, laparoscopic cholecystectomy. FAMILY HISTORY: Father has alcohol abuse. SOCIAL HISTORY: Chews one can of tobacco daily. Alcohol, he is currently drinking 10 beers every day. No drug use. REVIEW OF SYSTEMS: As per HPI. Rest of the review of systems is negative. MEDICATIONS: The patient seems currently on Eliquis 5 mg p.o. b.i.d., Tylenol 650 mg p.o. b.i.d. p.r.n., glipizide 5 mg p.o. daily, hydroxyzine 25 mg p.o. b.i.d. p.r.n., Protonix 40 mg p.o. daily, paroxetine 20 mg p.o. daily. REVIEW OF SYSTEMS: As per HPI. Rest of review of systems is negative. PHYSICAL EXAMINATION: GENERAL: The patient is of moderate build, not in acute distress. VITAL SIGNS: Temperature 36.4, pulse 97, respiratory rate 18, blood pressure 118/82, oxygen 98% on room air. HEENT: Pupils equal, round and reactive to light. Oral mucosa moist. NECK: No JVD, no neck masses. CARDIOVASCULAR: S1 and S2 heard. Regular rate and rhythm. No murmur, no gallop. RESPIRATORY SYSTEM: Normal AP diameter. No accessory muscle use. No wheezing, no crackles. ABDOMEN: Soft, bowel sounds sluggish. Diffuse abdominal tenderness, guarding present. No distention seen. CENTRAL NERVOUS SYSTEM: Cranial nerves II through XII are grossly intact, nonfocal. EXTREMITIES: No edema, no erythema. LABORATORY DATA: WBC 5.4, hemoglobin 15.2, hematocrit 42.6, platelets 170. Sodium 127, potassium 4.1, chloride 94, CO2 of 22, BUN 5, creatinine 0.9, serum glucose 404, calcium 9.7, total bilirubin 0.6, AST 41, ALT 38, alkaline phosphatase 71, lipase 93. Urinalysis: +3 glucose. Ethyl alcohol 325. SARS-CoV-2 rapid test negative. IMAGING DATA: CT abdomen and pelvis with IV contrast concerning for colitis of descending and sigmoid colon favoring infectious or inflammatory etiologies, hepatic steatosis, status post cholecystectomy. EKG: Shows normal sinus tachycardia at rate of 103, no significant change was found. ASSESSMENT AND PLAN: This is a 46-year-old male who presents with abdominal pain. 1. Abdominal pain, ongoing alcoholism, could be from gastritis or possibly from recurrent chronic pancreatitis. Also, CAT scan showing colitis,possible inflammatory or infectious. Continue his home Protonix. We will place him on IV Pepcid 20 mg p.o. b.i.d., aggressive fluids with IV Ringer at 200 mL per hour. Pain control, empiric antibiotics, Zosyn for colitis. The patient also has some diarrhea, we will also check for C. diff. Consult GI in the a.m. for further recommendations. 2. Alcoholism, alcohol withdrawal protocol with gabapentin, IV Ativan p.r.n.,banana bag. IV thiamine, IV folic acid. Needs counseling. 3. Diabetes with hyperglycemia with sugar 404. Received one dose of IV insulin 6units in the ER. Currently n.p.o. currently, continue with Lantus 6 units daily and insulin sliding scale. Hold home p.o. medications. Follow HbA1c levels as well as blood sugars. 4. Hyponatremia with sodium 127, likely from hyperglycemia. Follow the repeat labs in a.m. 5. History of deep venous thrombosis (DVT) and pulmonary embolism (PE), on Eliquis. 6. History of mood disorder. Continue paroxetine. 7. Deep venous thrombosis prophylaxis: On Eliquis. DISPOSITION: Closely monitor in the med tele. PT/OT prior to discharge. Social service to help with discharge planning. Job ID: [id number] MARGARET
[2022-10-20] MEDS ORDERED: GLUCAGON FOR INJ 1 MG VIAL SQ PRN (02:48)
[2022-10-20] MEDS ORDERED: Ativan IV Alcohol Withdrawal--Active Protocol IV PRN (02:48)
[2022-10-20] MEDS ORDERED: GLUCOSE 40% GEL 15 GM TUBE PO PRN (02:48)
[2022-10-20] MEDS ORDERED: GABAPENTIN 1200MG ALCOHOL WITHDRAWAL LOAD PO STA (02:48)
[2022-10-20] MEDS ORDERED: DEXTROSE 50% 50 ML SYRINGE IV PRN (02:48)
[2022-10-20] MEDS ORDERED: NITROGLYCERIN SL 0.4 MG/TAB TAB SL PRN (02:48)
[2022-10-20] MEDS ORDERED: CARBOHYDRATES FOR HYPOGLYCEMIA PO PRN (02:48)
[2022-10-20] MEDS ORDERED: ONDANSETRON INJ 2 MG/ML 2 ML VIAL IV PRN (02:48)
[2022-10-20] MEDS ORDERED: hydrOXYzine HCl 25 MG TAB PO PRN (02:48)
[2022-10-20] MEDS ORDERED: GLUCOSE 10 TAB/TUBE PO PRN (02:48)
[2022-10-20] MEDS ORDERED: ACETAMINOPHEN 325 MG TAB PO PRN (02:48)
[2022-10-20] MEDS ORDERED: ENOXAPARIN INJ 40 MG/0.4 ML SYR SQ SCH (02:48)
[2022-10-20] MEDS ORDERED: LORazepam 2 MG/1 ML VIAL IV PRN ×3 (02:48)
[2022-10-20] MEDS ORDERED: GABAPENTIN 600 MG TAB PO ONE (02:48)
[2022-10-20] MEDS ORDERED: MULTI-VITAMIN INFUSION 10 ML, THIAMINE HCL 100 MG, FOLIC ACID 1 MG in SODIUM CHLORIDE 0... IV ONE (03:15)
[2022-10-20] MEDS: FAMOTIDINE 20 MG in SYRINGE 3 ML IV SCH ×3 (03:25→23:04)
[2022-10-20] MEDS: LACTATED RINGER'S 1,000 ML IV SCH ×4 (03:25→19:33)
[2022-10-20] MEDS ORDERED: HYDROmorphone INJ 0.5 MG/0.5 ML SYR IV STA (03:43)
[2022-10-20] MEDS: INSULIN ASPART PER UNIT CHARGE SC SCH ×4 (05:37→21:59)
[2022-10-20] MEDS: HYDROmorphone INJ 0.5 MG/0.5 ML SYR IV PRN ×4 (06:26→23:03)
[2022-10-20 07:29] LABS: Basophils # (auto) 0.03 K/uL (0-0.2); Basophils % (auto) 0.8 %; Eosinophils # (auto) 0.23 K/uL (0-0.50); Eosinophils % (auto) 5.8 %; Hematocrit (blood only) 38.5 % (42.0-52.0); Hemoglobin 13.9 g/dl (14.0-18.0); Immature Granulocytes # (auto) 0.01 K/uL (0.01-0.20); Immature Granulocytes % (auto) 0.3 %; Lymphocytes # (auto) 1.61 K/uL (1.2-3.4); Lymphocytes % (auto) 40.8 %; Mean Corpuscular Hemoglobin 33.5 pg (25.0-34.0); Mean Corpuscular Hgb Conc 36.1 g/dL (32.0-36.0); Mean Corpuscular Volume 92.8 fL (80.0-100.0); Mean Platelet Volume 9.3 fL (9.4-12.4); Monocytes # (auto) 0.43 K/uL (0.11-0.59); Monocytes % (auto) 10.9 %; Neutrophils # (auto) 1.64 K/uL (1.40-6.50); Neutrophils % (auto) 41.4 %; Platelet Count 126 K/uL (130-400); RDW Coefficient of Variation 11.3 % (11.5-14.5); RDW Standard Deviation 38.5 fL (36.4-46.3); Red Blood Count 4.15 M/uL (4.70-6.10); White Blood Count 3.95 K/ul (4.8-10.8)
[2022-10-20 07:50] LABS: BUN Creatinine Ratio 4.4 (10-20); Calcium 8.3 mg/dl (8.5-10.1); Creatinine Clr Calc Pharmacy 145.8 ml/min; Est GFR (African American) 130.9 ml/min; Est GFR (Non-African American) 112.9 ml/min; Magnesium 1.8 mg/dl (1.7-2.4); Potassium 4.3 mmol/L (3.5-5.1); Troponin I High Sensitivity 4.1 pg/ml (0-20)
[2022-10-20] MEDS: PARoxetine HCL 20 MG TAB PO SCH (08:10)
[2022-10-20] MEDS: PANTOprazole 40 MG TAB PO SCH (08:10)
[2022-10-20] MEDS: APIXABAN 5 MG TABLET PO SCH ×2 (08:10→21:59)
[2022-10-20] MEDS: FOLIC ACID 1 MG in SYRINGE 9.8 ML IV SCH (08:10)
[2022-10-20] MEDS: THIAMINE HCL 100 MG in SYRINGE 9 ML IV SCH (08:10)
[2022-10-20] MEDS: LANTUS PER UNIT CHARGE SQ SCH (08:13)
[2022-10-20 08:51] LABS: Estimated Average Glucose 249 mg/dl; Hemoglobin A1C 10.3 % (4.5-5.6)
[2022-10-20] MEDS: GABAPENTIN 600 MG TAB PO SCH ×2 (10:23→16:29)
[2022-10-20] MEDS ORDERED: traMADol HCL 50 MG TABLET PO PRN (10:58)
[2022-10-20] MEDS ORDERED: ACETAMINOPHEN 1,000 MG/100 ML VIAL IV SCH (11:00)
--- NOTE | 2022-10-20 11:54 | Hospitalist Progress Note ---
Date of Service October 20, 2022 Assessment & Plan (1) Abdominal pain: (2) Chronic pancreatitis: (3) Alcohol abuse: Plan: Patient presented with abdominal pain, nausea and diarrhea yesterday Reports some symptoms are improved today Still has abd pain. No diarrhea so far Pain control Minimize opioid use especially IV. Reduced dilaudid to q6h prn only for severe pain. Plan to discontinue tomorrow Will do scheduled tylenol today CT abdomen pelvis noted Findings concerning for colitis of descending and sigmoid colon. If diarrhea recurs, will send for C. difficile. Considering no fever, leukocytosis, will hold off antibiotics for now and monitor. Advance diet as tolerated. Hyponatremia noted on admission. Sodium was 127 [but corrected for hyperglycemia was 132] Sodium is 141 today. Counseled extensively regarding alcohol cessation Provided resources for rehab Continue CIWA protocol for now (4) DM type 2 (diabetes mellitus, type 2): Plan: Poorly controlled diabetes. History of medication nonadherence. A1c is 10.3. Continue insulin while inpatient. Provided diabetes education. Hold home glipizide for now. Plan Continue home paroxetine Continue home Eliquis Admission and Anticipated Discharge Date Admission Date: October 20, 2022 Subjective Patient seen and examined. Reports nausea has improved. Still reports generalized abdominal pain, reports it is mildly improved. Denies any chest pain, cough, shortness of breath Reported diarrhea episode yesterday. Denied hematochezia, melena Denied dysuria, frequency, urgency, hematuria. Denied fever chills Physical Exam Constitutional: + well hydrated; no acute distress Eyes: PERRL, conjunctivae normal, anicteric sclerae ENMT: external ear and nose normal, oropharynx normal Respiratory: normal respiratory effort, lungs clear to auscultation Cardiovascular: Rate/Rhythm: regular rate and regular rhythm S1 S2 Gastrointestinal (Abdomen): Inspection/Auscultation: abdomen normal to inspection and normal bowel sounds; abdomen not distended +generalized tenderness Musculoskeletal: no cyanosis or clubbing, extremities motor strength 5/5 Neurologic: PERRL, EOMI, accommodation nl, no face palsy, no dysarthria Psychiatric: A+Ox3, euthymic affect Results & Data Results & Data Vital Signs (Past 12 Hours) Vital Signs Temp Pulse Pulse Resp BP Pulse Ox O2 Del Method 10/20/22 11:42 67 10/20/22 10:36 37.2 C 76 18 133/86 98 Room Air 10/20/22 06:49 36.5 C 83 18 100/62 95 Room Air 10/20/22 03:00 36.8 C 82 18 116/73 97 Room Air 10/20/22 03:18 89 10/20/22 01:00 100 H 18 108/70 98 Room Air Laboratory Results Abnormal lab results 10/19/22 10/19/22 10/19/22 Range/Units 20:49 20:49 20:49 WBC (4.8-10.8) K/ul RBC 4.61 L (4.70-6.10) M/uL Hgb (14.0-18.0) g/dl Hct (42.0-52.0) % MCHC (32.0-36.0) g/dL RDW Coeff of Gucci 11.2 L (11.5-14.5) % Plt Count (130-400) K/uL MPV 9.2 L (9.4-12.4) fL Sodium 127 L (136-145) mmol/L Chloride 94 L (98-107) mmol/L BUN 5 L (6-23) mg/dl BUN/Creatinine Ratio 5.4 L (10-20) Glucose 404 H* (70-99(Fasting)) mg/dl POC Glucose (70-99) mg/dl Hemoglobin A1c (4.5-5.6) % Calcium (8.5-10.1) mg/dl AST 41 H (13-39) U/L Lipase 93 H (11-82) U/L Urine Glucose (UA) (Negative) Ethyl Alcohol mg/dL 305.8 H (<10.0) mg/dl 10/19/22 10/19/22 10/20/22 Range/Units 23:16 Unknown 02:38 WBC (4.8-10.8) K/ul RBC (4.70-6.10) M/uL Hgb (14.0-18.0) g/dl Hct (42.0-52.0) % MCHC (32.0-36.0) g/dL RDW Coeff of Gucci (11.5-14.5) % Plt Count (130-400) K/uL MPV (9.4-12.4) fL Sodium (136-145) mmol/L Chloride (98-107) mmol/L BUN (6-23) mg/dl BUN/Creatinine Ratio (10-20) Glucose (70-99(Fasting)) mg/dl POC Glucose 149 H 105 H (70-99) mg/dl Hemoglobin A1c (4.5-5.6) % Calcium (8.5-10.1) mg/dl AST (13-39) U/L Lipase (11-82) U/L Urine Glucose (UA) 3+ H (Negative) Ethyl Alcohol mg/dL (<10.0) mg/dl 10/20/22 10/20/22 10/20/22 Range/Units 05:17 06:41 06:41 WBC 3.95 L (4.8-10.8) K/ul RBC 4.15 L (4.70-6.10) M/uL Hgb 13.9 L (14.0-18.0) g/dl Hct 38.5 L (42.0-52.0) % MCHC 36.1 H (32.0-36.0) g/dL RDW Coeff of Gucci 11.3 L (11.5-14.5) % Plt Count 126 L (130-400) K/uL MPV 9.3 L (9.4-12.4) fL Sodium (136-145) mmol/L Chloride 109 H (98-107) mmol/L BUN 3 L (6-23) mg/dl BUN/Creatinine Ratio 4.4 L (10-20) Glucose 121 H (70-99(Fasting)) mg/dl POC Glucose 110 H (70-99) mg/dl Hemoglobin A1c (4.5-5.6) % Calcium 8.3 L (8.5-10.1) mg/dl AST (13-39) U/L Lipase (11-82) U/L Urine Glucose (UA) (Negative) Ethyl Alcohol mg/dL (<10.0) mg/dl 10/20/22 10/20/22 Range/Units 06:41 11:33 WBC (4.8-10.8) K/ul RBC (4.70-6.10) M/uL Hgb (14.0-18.0) g/dl Hct (42.0-52.0) % MCHC (32.0-36.0) g/dL RDW Coeff of Gucci (11.5-14.5) % Plt Count (130-400) K/uL MPV (9.4-12.4) fL Sodium (136-145) mmol/L Chloride (98-107) mmol/L BUN (6-23) mg/dl BUN/Creatinine Ratio (10-20) Glucose (70-99(Fasting)) mg/dl POC Glucose 104 H (70-99) mg/dl Hemoglobin A1c 10.3 H (4.5-5.6) % Calcium (8.5-10.1) mg/dl AST (13-39) U/L Lipase (11-82) U/L Urine Glucose (UA) (Negative) Ethyl Alcohol mg/dL (<10.0) mg/dl (4) DM type 2 (diabetes mellitus, type 2) Diabetes mellitus complication status: with other specified complication Diabetes mellitus longterm insulin use: with longterm use Qualified Code(s): E11.69 - Type 2 diabetes mellitus with other specified complication; Z79.4 - Lo ng term (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
[2022-10-20] MEDS: ACETAMINOPHEN 325 MG TAB PO SCH ×2 (12:34→17:59)
--- NOTE | 2022-10-20 14:39 | Gastrointestinal Consultation ---
Date of Consultation October 20, 2022 Assessment & Plan (1) Chronic pancreatitis: (2) Acute alcoholic pancreatitis: Plan Acute on Chronic pancreatitis. Strategies for alcohol abstention and discontinuation of chewing tobacco discussed. IV fluids, bowel rest. Judicious use of narcotics. Plan for OP EGD/EUS. History of Present Illness Reason for Consultation: abdominal pain, colitis, recurrent pancreatitis Requesting Physician: Dr. Sousa Attending Physician: Montse Vaughn MD History of Present Illness Mr. Raffi Zeng is a 46 yr old male pt of Dr. Dhiraj Myers w a hx of DM-2, Renae's/GERD, PE/DVT chronic pancreatitis who presented to the ED yesterday for abdominal pain. He had nausea, diarrhea for a few days prior, believing that he had a "GI bug." He has mild pain at baseline most days. Yesterday, he experienced the sudden onset of severe, diffuse upper abdomen pain. He admits to drinking alcohol recently. He also chews tobacco and has for years. On arrival, CT suggests chronic pancreatitis w coarse calcification, but no acu te changes to the pancreas. CT also suggested wall thickening of the descending and sigmoid colon. Lipase is mildly elevated at 91, AST mildly elevated at 47, other LFTs normal. He is examined while he is awake, alert, oriented and feels improvement in pain after Dilaudid. He is normotensive, w/o any tachycardia and renal function is normal. He does not feel ready to eat yet but is sipping on clear liquids. Allergies Allergy/AdvReac Type Severity Reaction Status Date / Time No Known Allergies Allergy Verified 10/19/22 23:53 Home Medications Medication Instructions Recorded Confirmed Type paroxetine HCl 20 mg tablet 20 mg PO QAM 12/20/19 10/20/22 History pantoprazole 40 mg tablet,delayed 40 mg PO QAM #30 tabs 03/01/21 10/20/22 Rx release acetaminophen 325 mg capsule 650 mg PO BID PRN Fever Or Pain 08/17/22 10/20/22 History (Tylenol) apixaban 5 mg tablet (Eliquis) 5 mg PO BID 08/17/22 10/19/22 History glipizide 5 mg tablet, extended 5 mg PO DAILYBB 10/20/22 10/20/22 History release 24 hr hydroxyzine pamoate 25 mg capsule 25 mg PO BID PRN Anxiety 10/20/22 10/20/22 History Patient History Medical History (Updated 10/20/22 @ 01:09 by Geoff Andrade DO) Abdominal pain Abdominal pain Abdominal pain, acute, epigastric Acute hyperglycemia Alcohol abuse (Unknown) Alcohol abuse Alcohol abuse Alcohol withdrawal Alcoholic ketosis Renae's esophagus (Unknown) "per EGD 11/23/09 " On 05/31/11 09:06 Martinez Jose wrote "per EGD 11/23/09 " Chest pain COVID-19 Depression Depression DM type 2 (diabetes mellitus, type 2) Encounter for alcohol abuse counseling and surveillance Encounter for pre-operative examination Encounter for tobacco use cessation counseling H/O acute pancreatitis "recurrent" History of substance abuse Hyperglycemia Intentional drug overdose Lumbar degenerative disc disease Mood disorder Mood disorder Nausea & vomiting Neuropathy Pancreatic duct stones Pancreatitis Panic disorder Pulmonary embolism Retrosternal chest pain Suicidal ideation Suicidal ideation Suicide attempt Surgical History H/O esophagogastroduodenoscopy "EGD 11/23/2009- mild gastritis, suspicious for gastroparesis, Z-line irregular EUS 02/04/2010- mild chronic pancreatitis, pronounced cholesterolosis of gallbladder, no biliary dilation or stones, probable gastroparesis EGD 10/31/2014- gastritis" S/P lumbar fusion L4-S1 2014 Family History Father Alcohol abuse Social History Smoking Status: Never smoker Tobacco Type: Smokeless Tobacco (Dip or Chew) Second Hand Exposure: No; Do You Dip or Chew Tobacco: Yes; Tobacco Cessation Education Requested by Patient: No Hx Alcohol Use: Yes Alcohol type: beer Hx Substance Use: Yes Last Used Substance: Unknown Preferred Language: Cymraes Communication Ability: Effective Engine Mechanic Required: No Beliefs That Will Affect Care: None marital status: Current Living Situation: Family Current Living Situation Comment: from home with mother How many Children do You have: 3 Other Information That Helps Us Care for You: No Feels Safe at Home: Yes Safety Concerns: Feels Safe At This Time Assistive Devices: None Review of Systems Review of Systems: ROS: Gen: Denies weakness, fevers, weight loss Eyes: No eye redness, or pain, no recent vision changes Resp: No SOB, no cough Cardio: No palpitations/irregular beats, no chest pain GI: As per HPI, otherwise (-). : Denies pain on urination Skin: No jaundice, itching or new rashes Physical Exam Constitutional: WD/WN, vitals as above Eyes: PERRL, conjunctivae normal, anicteric sclerae Neck: trachea midline, no thyromegaly Respiratory: normal respiratory effort, lungs clear to auscultation Cardiovascular: RRR, no murmur, no edema Gastrointestinal (Abdomen): soft, non distended, very tender over the entire abdomen Skin: no rashes, warm and dry Neurologic: PERRL, EOMI, accommodation nl, no face palsy, no dysarthria Psychiatric: A+Ox3, euthymic affect Lymphatic: no cervical or axillary lymphadenopathy Results & Data Vital Signs (Past 12 Hours) Vital Signs Temp Pulse Pulse Resp BP Pulse Ox O2 Del Method 10/20/22 11:42 67 10/20/22 10:36 37.2 C 76 18 133/86 98 Room Air 10/20/22 06:49 36.5 C 83 18 100/62 95 Room Air 10/20/22 03:00 36.8 C 82 18 116/73 97 Room Air 10/20/22 03:18 89 Laboratory Results WBC 3.9, Hb 13.9, Hct 38.5, plts 126, Na 141, K 4.3, Cl 109, CO2 25, BUN 3, Cr 0.68, glucose 121 Lipase 93. Diagnostic Findings CTAP 10/19/22: Gallbladder and bile ducts: Status post cholecystectomy. No ductal dilation. Pancreas: Atrophic with numerous coarse calcifications consistent with remote pancreatitis. No mass. No ductal dilation. Spleen: There are numerous splenic varicosities. No splenomegaly. Adrenals: Unremarkable. No mass. Kidneys and ureters: Unremarkable. No solid mass. No hydronephrosis. Stomach and bowel: There is thickening and edema of the descending and sigmoid colon wall. Scars are.
[2022-10-20] MEDS ORDERED: Nursing to Pharmacy Communication SCH (19:30)
[2022-10-21] MEDS: LACTATED RINGER'S 1,000 ML IV SCH ×4 (00:49→22:55)
[2022-10-21] MEDS: ACETAMINOPHEN 325 MG TAB PO SCH ×5 (00:50→23:59)
[2022-10-21] MEDS: GABAPENTIN 600 MG TAB PO SCH ×3 (00:51→16:54)
[2022-10-21] MEDS: HYDROmorphone INJ 0.5 MG/0.5 ML SYR IV PRN (05:17)
[2022-10-21] MEDS: LANTUS PER UNIT CHARGE SQ SCH (08:43)
[2022-10-21] MEDS: INSULIN ASPART PER UNIT CHARGE SC SCH ×4 (08:43→21:44)
[2022-10-21] MEDS: THIAMINE HCL 100 MG in SYRINGE 9 ML IV SCH (08:44)
[2022-10-21] MEDS: PANTOprazole 40 MG TAB PO SCH (08:44)
[2022-10-21] MEDS: FOLIC ACID 1 MG in SYRINGE 9.8 ML IV SCH (08:44)
[2022-10-21] MEDS: APIXABAN 5 MG TABLET PO SCH ×2 (08:44→21:42)
[2022-10-21] MEDS: PARoxetine HCL 20 MG TAB PO SCH (08:45)
[2022-10-21] MEDS: FAMOTIDINE 20 MG in SYRINGE 3 ML IV SCH ×2 (08:51→21:43)
--- NOTE | 2022-10-21 10:04 | Hospitalist Progress Note ---
Date of Service October 21, 2022 Assessment & Plan (1) Abdominal pain: (2) Chronic pancreatitis: (3) Alcohol abuse: Plan: Patient presented with abdominal pain, nausea and diarrhea yesterday Reports some symptoms are improved today Still has abd pain. No diarrhea so far Pain control Stop iv dilaudid. Use po tramadol prn Continue tylenol CT abdomen pelvis noted Findings concerning for colitis of descending and sigmoid colon. If diarrhea recurs, will send for C. difficile. Considering no fever, leukocytosis, will hold off antibiotics for now and monitor. Advance diet as tolerated. Hyponatremia noted on admission. Sodium was 127 [but corrected for hyperg lycemia was 132] Counseled again regarding alcohol cessation Continue CIWA protocol for now GI eval noted Patient needs to follow up GI outpatient for EGD/EUS (4) DM type 2 (diabetes mellitus, type 2): Plan: Poorly controlled diabetes. History of poor medication A1c is 10.3. Continue insulin while inpatient. Provided diabetes education. Hold home glipizide for now. Plan Continue home paroxetine Continue home Eliquis Admission and Anticipated Discharge Date Admission Date: October 20, 2022 Subjective Patient seen and examined Reports nausea is improved Denied any vomiting today. Reports abd pain is mildly improved Denied any fever, chills Denied cough, chest pain or shortness of breath Tolerating diet Physical Exam Constitutional: + well hydrated; no acute distress Eyes: PERRL, conjunctivae normal, anicteric sclerae ENMT: external ear and nose normal, oropharynx normal Respiratory: normal respiratory effort, lungs clear to auscultation Cardiovascular: Rate/Rhythm: regular rate and regular rhythm S1 S2 Gastrointestinal (Abdomen): Inspection/Auscultation: abdomen normal to inspection and normal bowel sounds; abdomen not distended Mild abd tenderness Musculoskeletal: no cyanosis or clubbing, extremities motor strength 5/5 Neurologic: PERRL, EOMI, accommodation nl, no face palsy, no dysarthria Psychiatric: A+Ox3, euthymic affect Results & Data Results & Data Vital Signs (Past 12 Hours) Vital Signs Temp Pulse Resp BP Pulse Ox O2 Del Method 10/21/22 07:57 36.5 C 72 20 123/82 99 Room Air 10/21/22 03:52 37 C 75 16 125/77 97 Room Air 10/20/22 22:28 37.1 C 84 16 120/79 99 Room Air Laboratory Results Abnormal lab results 10/20/22 10/20/22 10/20/22 Range/Units 11:33 16:30 20:13 POC Glucose 104 H 125 H 103 H (70-99) mg/dl 10/21/22 Range/Units 07:43 POC Glucose 102 H (70-99) mg/dl (4) DM type 2 (diabetes mellitus, type 2) Diabetes mellitus complication status: with other specified complication 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
[2022-10-21] MEDS: traMADol HCL 50 MG TABLET PO PRN ×3 (10:30→19:53)
[2022-10-21 15:23] LABS: Albumin Globulin Ratio 1.3 (0.9-2); Albumin Level 3.2 gm/dl (3.4-5.0); BUN Creatinine Ratio 4.4 (10-20); Creatinine Clr Calc Pharmacy 145.8 ml/min; Est GFR (African American) 130.9 ml/min; Est GFR (Non-African American) 112.9 ml/min; Globulin 2.4 gm/dl (2.5-4.0); Magnesium 1.7 mg/dl (1.7-2.4); Phosphorus 2.7 mg/dl (2.5-4.9); Potassium 4.3 mmol/L (3.5-5.1); Total Protein 5.6 gm/dl (6.0-8.3)
[2022-10-21] MEDS ORDERED: traMADol HCL 50 MG TABLET PO PRN (19:53)
--- NOTE | 2022-10-22 00:09 | Electrocardiogram Report ---
Test Reason : Blood Pressure : / mmHG Vent. Rate : 103 BPM Atrial Rate : 103 BPM P-R Int : 146 ms QRS Dur : 076 ms QT Int : 344 ms P-R-T Axes : 066 058 061 degrees QTc Int : 450 ms Sinus tachycardia Otherwise normal ECG When compared with ECG of 27-AUG-2022 17:51, No significant change was found Confirmed by Antoni Meek ([id number]) on 10/22/2022 12:09:26 AM Referred By: REFERRED SELF Confirmed By:Antoni Meek
--- NOTE | 2022-10-22 00:18 | Electrocardiogram Report ---
Test Reason : Blood Pressure : / mmHG Vent. Rate : 072 BPM Atrial Rate : 072 BPM P-R Int : 152 ms QRS Dur : 084 ms QT Int : 400 ms P-R-T Axes : 000 043 036 degrees QTc Int : 438 ms Poor data quality, interpretation may be adversely affected Normal sinus rhythm When compared with ECG of 19-OCT-2022 20:45, No significant change Confirmed by Antoni Meek ([id number]) on 10/22/2022 12:17:56 AM Referred By: REFERRED SELF Confirmed By:Antoni Meek
[2022-10-22] MEDS: traMADol HCL 50 MG TABLET PO PRN ×2 (01:41→08:12)
--- NOTE | 2022-10-22 02:09 | Electrocardiogram Report ---
Test Reason : Blood Pressure : / mmHG Vent. Rate : 064 BPM Atrial Rate : 064 BPM P-R Int : 132 ms QRS Dur : 082 ms QT Int : 406 ms P-R-T Axes : 073 082 079 degrees QTc Int : 418 ms Normal sinus rhythm ST elevation, consider early repolarization, pericarditis, or injury Abnormal ECG When compared with ECG of 20-OCT-2022 05:20, No significant change Confirmed by Antoni Meek ([id number]) on 10/22/2022 2:09:32 AM Referred By: REFERRED SELF Confirmed By:Antoni Meek
[2022-10-22 04:09] VITALS: TEMP 97.7
[2022-10-22] MEDS: ACETAMINOPHEN 325 MG TAB PO SCH (05:28)
[2022-10-22] MEDS ORDERED: GABAPENTIN 600 MG TAB PO SCH (06:00)
[2022-10-22 07:42] VITALS: BP 116/76; O2SAT 99
--- NOTE | 2022-10-22 07:42 | Electrocardiogram Report ---
Test Reason : Blood Pressure : / mmHG Vent. Rate : 064 BPM Atrial Rate : 064 BPM P-R Int : 140 ms QRS Dur : 080 ms QT Int : 414 ms P-R-T Axes : 008 048 047 degrees QTc Int : 427 ms Normal sinus rhythm When compared with ECG of 21-OCT-2022 06:25, T wave amplitude has decreased in Inferior leads Confirmed by Danilo Grimes ([id number]) on 10/22/2022 7:41:42 AM Referred By: REFERRED SELF Confirmed By:Jere Grimes
[2022-10-22] MEDS: THIAMINE HCL 100 MG in SYRINGE 9 ML IV SCH (08:04)
[2022-10-22] MEDS: FOLIC ACID 1 MG in SYRINGE 9.8 ML IV SCH (08:04)
[2022-10-22] MEDS: PANTOprazole 40 MG TAB PO SCH (08:04)
[2022-10-22] MEDS: APIXABAN 5 MG TABLET PO SCH (08:04)
[2022-10-22] MEDS: PARoxetine HCL 20 MG TAB PO SCH (08:04)
[2022-10-22] MEDS: INSULIN ASPART PER UNIT CHARGE SC SCH (08:13)
[2022-10-22] MEDS: LANTUS PER UNIT CHARGE SQ SCH (08:13)
[2022-10-22] MEDS: FAMOTIDINE 20 MG in SYRINGE 3 ML IV SCH (08:21)
--- NOTE | 2022-10-22 08:42 | Discharge Summary ---
Date of Service October 22, 2022 Admission HPI Per Admitting Provider 46-year-old male with past medical history significant for ADHD, mood disorder as per records, history of diabetes, on oral medications, GERD, Renae's esophagus, history of recurrent alcoholic pancreatitis, history of PE, history of recurrent DVT and currently on Eliquis, seems to recently had DVT in the left gastrocnemius, history of chronic pain, history of narcotic abuse as per records, terminated medication agreement, history of multiple admissions for pancreatitis and alcoholism. The patient himself states that he has had 15 episodes of pancreatitis in the last 3 years. He says he is trying to quit alcohol but relapses.. He says he quit 3 months ago recently and again he started 2 weeks ago drinking 10 beers every day. Noticed severe abdominal pain, band-like going to the back, also some nausea and also some chest pain when taking deep breath. That is the reason he came to the ER and he also had several episodes of diarrhea today. Denies any blood in the stools. Normal bladder movements. Has some nausea, but no vomiting, some shortness of breath and having some cough with whitish yellow phlegm. Denies any fevers, no headache, no earache. Has some runny nose. No sore throat. Hemodynamically stable. Admission Exam Per Admitting Provider GENERAL: The patient is of moderate build, not in acute distress. VITAL SIGNS: Temperature 36.4, pulse 97, respiratory rate 18, blood pressure 118/82, oxygen 98% on room air. HEENT: Pupils equal, round and reactive to light. Oral mucosa moist. NECK: No JVD, no neck masses. CARDIOVASCULAR: S1 and S2 heard. Regular rate and rhythm. No murmur, no gallop. RESPIRATORY SYSTEM: Normal AP diameter. No accessory muscle use. No wheezing, no crackles. ABDOMEN: Soft, bowel sounds sluggish. Diffuse abdominal tenderness, guarding present. No distention seen. CENTRAL NERVOUS SYSTEM: Cranial nerves II through XII are grossly intact, nonfocal. EXTREMITIES: No edema, no erythema. Principal Diagnosis Colitis Acute on chronic pancreatitis Alcohol abuse Poorly controlled diabetes mellitus Discharge Exam Constitutional + well hydrated; no acute distress Eyes PERRL, conjunctivae normal, anicteric sclerae ENMT external ear and nose normal, oropharynx normal Respiratory normal respiratory effort, lungs clear to auscultation Cardiovascular Rate/Rhythm: regular rate and regular rhythm S1 S2 Gastrointestinal (Abdomen) Inspection/Auscultation: abdomen normal to inspection and normal bowel sounds; abdomen not distended Musculoskeletal no cyanosis or clubbing, extremities motor strength 5/5 Neurologic PERRL, EOMI, accommodation nl, no face palsy, no dysarthria Psychiatric A+Ox3, euthymic affect Discharge Data Allergies Allergy/AdvReac Type Severity Reaction Status Date / Time No Known Allergies Allergy Verified 10/19/22 23:53 Consultations 10/19/22 23:07 ED Decision to Admit Stat 10/20/22 08:00 Consult Gastroenterology Routine Ordered Studies 10/19/22 21:59 CT Abd and Pelvis [CT abd pelvis IV con only] Stat Hospital Course (1) Abdominal pain: (2) Chronic pancreatitis: (3) Alcohol abuse: Patient presented with abdominal pain, nausea and diarrhea All symptoms resolved CT abdomen pelvis noted findings concerning for colitis of descending and sigmoid colon. Considering no fever, leukocytosis, no antibiotics was given. Tolerating diet Hyponatremia noted on admission. Sodium was 127 [but corrected for hyperglycemia was 132] Counseled again regarding alcohol cessation GI evaluated and recommended patient needs to follow up GI outpatient for EGD/EUS (4) DM type 2 (diabetes mellitus, type 2): Poorly controlled diabetes. History of poor medication adherence A1c is 10.3. Provided diabetes education and need for med adherence. Continue home glipizide for now. Follow up with PCP Plan Continue home paroxetine Continue home Eliquis Total Time Total Time Spent Total Time Spent (In Minutes): 45 Total Time Includes: Examination of the Patient, Discharge Planning and Medication Reconciliation Discharge Plan Discharge Items Patient Disposition: Home - Self-Care Reason For Visit: ABDOMINAL PAIN Discharge Diagnosis: Colitis Acute on chronic pancreatitis Alcohol abuse Poorly controlled diabetes mellitus Activity: Resume your previous activity Non-emergency contact: Primary Care Provider and Mgmt Consultant Call non-emergency contact if: you have any medication questions Follow-up/Referrals: Ino Alvares CRNP [Nurse Practitioner] - (The gastroenterology office will call you with an appointment.) Dhiraj Myers DO [Primary Care Provider] - (Date & Time 10/27/2022 3:00 PM Provider Brandie Galvez DO Department [facility] ) Diet: Carb Consistent or DM2 Addtl Attending Provider Instructions: Mr Zeng You came into the hospital complaining of abdominal pain. You were evaluated and managed for the above listed diagnoses. It is very important that you quit alcohol intake as we discussed and that you take your diabetes medicine as prescribed. Please monitor and manage your diabetes appropriately. It is very important that you follow up with Gastroenterology in the office. It was a pleasure taking care of you. Pending Studies at Discharge: No Stand-Alone Forms: My [facility], Smoking Cessation Medications and DC Order Prescriptions: Continued paroxetine HCl 20 mg tablet 20 mg PO QAM pantoprazole 40 mg Tablet,Delayed Release (Dr/Ec) 40 mg PO QAM Qty: 30 0RF acetaminophen [Tylenol] 325 mg capsule 650 mg PO BID PRN (Reason: Fever Or Pain) Eliquis 5 mg tablet 5 mg PO BID glipizide 5 mg tablet extended release 24hr 5 mg PO DAILYBB hydroxyzine pamoate 25 mg capsule 25 mg PO BID PRN (Reason: Anxiety) Discharge Orders: Discharge Order (Routine); Ordered 10/22/22 Ordered By: Montse Bowden/Other Patient Handouts: Long-Term Complications of Diabetes, High Blood Sugar (Hyperglycemia), Hypoglycemia (Low Blood Sugar), Resources for People with Diabetes Admission Data Admit Date/Time: 10/20/22 00:19 Attending Provider: Montse Vaughn I. Admit Provider: Jed Sousa Primary Care Provider: Dhiraj Myers Other Providers: Jed Sousa ; Ino Alvares ; Riley Lowery ; Jen Reynolds ; Roselyn Peters ; Mila Lovelace ; Ijeoma Goins ; Jarad Montgomery ; Homero Mullen ; Deborah Molina ; Sanjay Bass ; Colton Moreland ; Christina Gill ; Margaret Banegas ; Marika Parrish ; So Prakash ; Camila Gentile ; Ye Tsang ; Brian Barrett ; Yue Pena ; Asaf Marshall Jr Other Interventions: Discharge Summary Assessment (RN) Last Done: 10/22/22 09:26
[2022-10-22 09:28] VITALS: PULSE 69
[2022-10-23] MEDS ORDERED: GABAPENTIN 600 MG TAB PO SCH (18:00)
== END 2022-10-22 09:30 | disposition home or self-care (01) | DRG 439 ==
LOC: ED 20:21 → 4W 10-20 00:19 → 2N 10-20 10:35

== ENCOUNTER 2022-11-08 21:57 | Inpatient (IN) ==
[2022-11-08 23:48] LABS: Basophils # (auto) 0.06 K/uL (0-0.2); Basophils % (auto) 1.1 %; Eosinophils % (auto) 5.4 %; Hematocrit (blood only) 40.4 % (42.0-52.0); Hemoglobin 14.8 g/dl (14.0-18.0); Immature Granulocytes # (auto) 0.01 K/uL (0.01-0.20); Immature Granulocytes % (auto) 0.2 %; Lymphocytes # (auto) 1.63 K/uL (1.2-3.4); Lymphocytes % (auto) 29.2 %; Mean Corpuscular Hgb Conc 36.6 g/dL (32.0-36.0); Mean Corpuscular Volume 90.2 fL (80.0-100.0); Mean Platelet Volume 9.6 fL (9.4-12.4); Monocytes # (auto) 0.44 K/uL (0.11-0.59); Monocytes % (auto) 7.9 %; Neutrophils # (auto) 3.14 K/uL (1.40-6.50); Neutrophils % (auto) 56.2 %; Platelet Count 164 K/uL (130-400); RDW Coefficient of Variation 11.5 % (11.5-14.5); RDW Standard Deviation 37.8 fL (36.4-46.3); Red Blood Count 4.48 M/uL (4.70-6.10); White Blood Count 5.58 K/ul (4.8-10.8)
[2022-11-08 23:48] LABS: Appearance Urine Clear (Clear); Bilirubin Urine Negative (Negative); Blood Urine Negative (Negative); Color Urine Yellow; Glucose Urine UA 3+ (Negative); Ketones Urine Negative (Negative); Leukocyte Esterase Urine Negative (Negative); Nitrite Urine Negative (Negative); Protein Urine Negative (Negative); Specific Gravity Urine 1.009 (1.000-1.030); Urobilinogen Urine Negative (Negative)
[2022-11-09] MEDS ORDERED: SODIUM CHLORIDE 0.9% 1000ML 1,000 ML IV ONE ×2 (00:02→02:27)
[2022-11-09] MEDS ORDERED: ONDANSETRON INJ 2 MG/ML 2 ML VIAL IV STA (00:02)
[2022-11-09] MEDS ORDERED: MoRPHine SULFATE 4 MG/ML 1 ML CARP\\VIAL IV STA ×2 (00:02→01:45)
--- NOTE | 2022-11-09 00:03 | Emergency Department Note ---
Impression & Plan Pancreatitis ADMIT ED Provider Note HPI: The patient is a 47-year-old gentleman who presents the emergency department with a chief complaint of abdominal pain. Patient states he has a history of alcohol abuse, history of chronic pancreatitis. He states that his abdominal pain began at around 8 AM, states he has been drinking alcohol recently. Patient states the pain radiates somewhat from his epigastrium to his right back. He states he does have a surgical history of a cholecystectomy. On arrival to the ED the patient is hemodynamically stable, he is in mild distress secondary to abdominal pain on my initial assessment ROS: - Per HPI *Outpatient medications and allergy history reviewed. *Pertinent external medical records reviewed. PE: General: Alert HEENT: Normocephalic, trachea midline Eyes: Extraocular eye movement is intact, no scleral erythema Pulmonary: Clear to auscultation bilaterally, no wheezing Cardio: Regular rate and rhythm GI: Abdomen is soft to palpation, there is tenderness over the mid abdomen to palpation without guarding or rigidity : No suprapubic tenderness MSK: No evidence of trauma or malformation of the extremities, no edema Skin: No evidence of rash Neuro: Alert, no focal deficits Psychiatric: Cooperative case monitor: (As interpreted by myself): - An order was placed for continuous cardiac monitoring - Patient was noted to be in sinus rhythm with a rate of 95 Interventions provided in ED: -IV fluid bolus, IV morphine Differential Diagnosis: Acute on chronic pancreatitis, acute gastritis, peptic ulcer disease, perforated viscus, small bowel obstruction, choledocholithiasis, amongst other potential pathologies. Medical Decision Making: The patient is a 47-year-old gentleman with history of alcohol induced pancreatitis, presents emergency department with chief complaint of epigastric pain that radiates to the right flank. On arrival here to the ED the patient is in mild distress secondary to pain, he states he was drinking alcohol recently. IV was established, lab work obtained, patient was given IV fluids as well as IV morphine for his symptoms. CT imaging of the abdomen pelvis was obtained that shows evidence of chronic pancreatitis, dilation of the pancreatic duct appears similar to previous imaging. Patient's lab work does not show any elevation in his lipase, possibly secondary to pancreatic atrophy and chronic changes. Lab work does not show any leukocytosis, platelet count is within normal limits, hemoglobin is stable, there is elevation in glucose to 374 however serum bicarbonate level is 21, I do not suspect this represents true DKA. Patient was given IV fluids in the ED. Also pseudohyponatremia 130. On my reassessment patient states his pain is improved but it is still present, he does not feel well for discharge, I discussed the case therefore with the on- call hospitalist, Dr. Sousa, and the patient was placed for admission in stable condition for further management Consultants: Hospitalist, Dr. Sousa Disposition discussion held by myself with: Patient Diagnosis: 1. Abdominal pain, acute 2. Acute on chronic pancreatitis 3. History of alcohol abuse 4. Hyperglycemia, acute Disposition: Admission Radu Alvarez DO Emergency Medicine Past Med/Surg History Medical History (Updated 11/09/22 @ 02:34 by Radu Alvarez DO) Abdominal pain Abdominal pain Abdominal pain, acute, epigastric Acute hyperglycemia Alcohol abuse (Unknown) Alcohol abuse Alcohol abuse Alcohol withdrawal Alcoholic ketosis Renae's esophagus (Unknown) "per EGD 11/23/09 " On 05/31/11 09:06 Martinez oJse wrote "per EGD 11/23/09 " Chest pain COVID-19 Depression Depression DM type 2 (diabetes mellitus, type 2) Encounter for alcohol abuse counseling and surveillance Encounter for pre-operative examination Encounter for tobacco use cessation counseling H/O acute pancreatitis "recurrent" History of substance abuse Hyperglycemia Intentional drug overdose Lumbar degenerative disc disease Mood disorder Mood disorder Nausea & vomiting Neuropathy Pancreatic duct stones Pancreatitis Panic disorder Pulmonary embolism Retrosternal chest pain Suicidal ideation Suicidal ideation Suicide attempt Surgical History H/O esophagogastroduodenoscopy "EGD 11/23/2009- mild gastritis, suspicious for gastroparesis, Z-line irregular EUS 02/04/2010- mild chronic pancreatitis, pronounced cholesterolosis of gallbladder, no biliary dilation or stones, probable gastroparesis EGD 10/31/2014- gastritis" S/P lumbar fusion L4-S1 2014 Family History Father Alcohol abuse Social History Smoking Status: Never smoker Tobacco Type: Smokeless Tobacco (Dip or Chew) Second Hand Exposure: No; Hx Alcohol Use: Yes Alcohol type: beer Hx Substance Use: Yes Last Used Substance: Unknown Preferred Language: [place] Communication Ability: Effective 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: No Beliefs That Will Affect Care: None marital status: Current Living Situation: Family Current Living Situation Comment: from home with mother How many Children do You have: 3 Feels Safe at Home: Yes Assistive Devices: None Allergies Allergies Allergy/AdvReac Type Severity Reaction Status Date / Time No Known Allergies Allergy Verified 11/09/22 00:22 Home Meds Home Medications Medication Instructions Recorded Confirmed paroxetine HCl 20 mg tablet 20 mg PO QAM 12/20/19 11/09/22 acetaminophen 325 mg capsule 650 mg PO BID PRN Fever Or Pain 08/17/22 11/09/22 (Tylenol) apixaban 5 mg tablet (Eliquis) 5 mg PO BID 08/17/22 11/09/22 glipizide 5 mg tablet, extended 5 mg PO DAILYBB 10/20/22 11/09/22 release 24 hr hydroxyzine pamoate 25 mg capsule 25 mg PO BID PRN Anxiety 10/20/22 11/09/22 Previous Rx's Medication Instructions Recorded pantoprazole 40 mg tablet,delayed 40 mg PO QAM #30 tabs 03/01/21 release Results & Data (ED) Vital Signs Vital Signs - 24 hr 11/08/22 22:09 11/08/22 23:48 11/09/22 00:20 Temperature 36.7 C Temperature Source Temporal Artery Scan Pulse Rate 113 H 102 H Pulse Rate [Apical] 100 H Respiratory Rate 18 18 Respiratory Depth Normal Blood Pressure 122/70 Blood Pressure [Right Arm] 130/80 Blood Pressure Mean 87 Blood Pressure Mean [Right Arm] 96 Pulse Oximetry 98 96 Oxygen Delivery Method Room Air Room Air Sepsis Recent Fever Within 48 Hours No Sepsis New/Unexplained Change in Mental Status N/A Sepsis Action Taken by Nursing No Action Required 11/09/22 02:08 Temperature Temperature Source Pulse Rate Pulse Rate [Apical] 98 H Respiratory Rate 16 Respiratory Depth Blood Pressure Blood Pressure [Right Arm] 123/77 Blood Pressure Mean Blood Pressure Mean [Right Arm] 92 Pulse Oximetry 94 Oxygen Delivery Method Room Air Sepsis Recent Fever Within 48 Hours Sepsis New/Unexplained Change in Mental Status Sepsis Action Taken by Nursing Laboratory Data 11/08/22 23:28 11/08/22 23:28 Lab Results 11/08/22 11/08/22 11/08/22 Range/Units 23:22 23:28 23:28 WBC 5.58 (4.8-10.8) K/ul RBC 4.48 L (4.70-6.10) M/uL Hgb 14.8 (14.0-18.0) g/dl Hct 40.4 L (42.0-52.0) % MCV 90.2 (80.0-100.0) fL MCH 33.0 (25.0-34.0) pg MCHC 36.6 H (32.0-36.0) g/dL RDW Std Deviation 37.8 (36.4-46.3) fL RDW Coeff of Gucci 11.5 (11.5-14.5) % Plt Count 164 (130-400) K/uL MPV 9.6 (9.4-12.4) fL Immature Gran % (Auto) 0.2 % Neut % (Auto) 56.2 % Lymph % (Auto) 29.2 % [place] % (Auto) 7.9 % Eos % (Auto) 5.4 % Baso % (Auto) 1.1 % Neut # (Auto) 3.14 (1.40-6.50) K/uL Lymph # (Auto) 1.63 (1.2-3.4) K/uL [place] # (Auto) 0.44 (0.11-0.59) K/uL Eos # (Auto) 0.30 (0-0.50) K/uL Baso # (Auto) 0.06 (0-0.2) K/uL Immature Gran # (Auto) 0.01 (0.01-0.20) K/uL Sodium 130 L (136-145) mmol/L Potassium 3.9 (3.5-5.1) mmol/L Chloride 96 L (98-107) mmol/L Carbon Dioxide 21 (21-32) mmol/L Anion Gap 13 H (3-11) BUN 8 (6-23) mg/dl Creatinine 0.87 (0.6-1.4) mg/dl Est Cr Clr Drug Dosing 112.7 ml/min Est GFR ( Amer) 117.5 ml/min Est GFR (Non-Af Amer) 101.3 ml/min BUN/Creatinine Ratio 9.2 L (10-20) Glucose 374 H* (70-99(Fasting)) mg/dl Calcium 9.8 (8.6-10.3) mg/dl Total Bilirubin 0.6 (0.2-1.0) mg/dl AST 35 (13-39) U/L ALT 36 (7-52) U/L Alkaline Phosphatase 81 (34-104) U/L Total Protein 7.5 (6.0-8.3) gm/dl Albumin 4.2 (3.4-5.0) gm/dl Globulin 3.3 (2.5-4.0) gm/dl Albumin/Globulin Ratio 1.3 (0.9-2) Lipase 26 (11-82) U/L Urine Color Yellow Urine Appearance Clear (Clear) Urine pH 5.0 (4.5-7.5) Ur Specific [place] 1.009 (1.000-1.030) Urine Protein Negative (Negative) Urine Glucose (UA) 3+ H (Negative) Urine Ketones Negative (Negative) Urine Blood Negative (Negative) Urine Nitrite Negative (Negative) Urine Bilirubin Negative (Negative) Urine Urobilinogen Negative (Negative) Ur Leukocyte Esterase Negative (Negative) Administered Medications Discontinued Medications Sodium Chloride (Nss 1000ml) 1,000 mls @ 999 mls/hr IV .Q1H1M ONE Stop: 11/09/22 01:02 Last Infusion: 11/09/22 01:17 Dose: 0 mls/hr Documented By: Admin: 11/09/22 00:14 Dose: 999 mls/hr Documented By: JOSE Ioversol (Optiray 350 100ml) 100 ml IV ONCE ONE Stop: 11/09/22 00:48 Last Admin: 11/09/22 00:47 Dose: 84 ml Documented By: LUANN Morphine Sulfate (Morphine Sulfate 4 Mg/Ml 1 Ml Carp\\Vial) 4 mg IV NOW STA Stop: 11/09/22 00:03 Last Admin: 11/09/22 00:13 Dose: 4 mg Documented By: JOSE Morphine Sulfate (Morphine Sulfate 4 Mg/Ml 1 Ml Carp\\Vial) 4 mg IV NOW STA Stop: 11/09/22 01:46 Last Admin: 11/09/22 01:54 Dose: 4 mg Documented By: JOSE Ondansetron HCl (Ondansetron Inj 2 Mg/Ml 2 Ml Vial) 4 mg IV NOW STA Stop: 11/09/22 00:03 Last Admin: 11/09/22 00:13 Dose: 4 mg Documented By: JOSE Imaging Data Radiologist's Impression: Abdomen/Pelvis CT 11/09/22 00:01 Exam(s): CT ABDOMEN + PELVIS With Contrast IV Amt: 84 ML OPTIRAY 350 EXAM: CT Abdomen and Pelvis With Intravenous Contrast CLINICAL HISTORY: Reason for exam: mid abd pain, hx of pancreatitis. TECHNIQUE: Axial computed tomography images of the abdomen and pelvis with intravenous contrast. Automated exposure control was utilized for the study. A dose lowering technique was utilized adhering to the principles of ALARA. CONTRAST: Patient received 84 ML OPTIRAY 350 of IV contrast COMPARISON: October 19, 2022 FINDINGS: Lung bases: Unremarkable. No mass. No consolidation. ABDOMEN: Liver: There is fatty infiltration of the liver. No focal liver lesion is seen. Gallbladder and bile ducts: Previous cholecystectomy. No biliary duct dilation or choledocholithiasis is seen. Pancreas: There are punctate calcification is in the pancreatic head consistent with chronic pancreatitis. There is dilation of the pancreas duct measuring up to 7 mm, similar to previous with atrophy of the pancreas body and tail. No acute inflammation is visible. No pseudocyst. Spleen: Unremarkable. No splenomegaly. Adrenals: Unremarkable. No mass. Kidneys and ureters: Unremarkable. No solid mass. No hydronephrosis. Stomach and bowel: Unremarkable. No obstruction. No mucosal thickening. PELVIS: Appendix: The appendix is not visualized. Bowel loops are nondilated. No acute inflammatory changes are seen involving the bowel. Bladder: Unremarkable. No mass. Reproductive: Unremarkable as visualized. ABDOMEN and PELVIS: Intraperitoneal space: Unremarkable. No free air. No significant fluid collection. Bones/joints: Metallic artifact from previous multilevel fusion, instrumentation, and laminectomy throughout the lower lumbar spine. No acute fracture or subluxation is seen. Soft tissues: Unremarkable. Vasculature: Unremarkable. No abdominal aortic aneurysm. Lymph nodes: Unremarkable. No enlarged lymph nodes. IMPRESSION: 1. There are punctate calcification is in the pancreatic head consistent with chronic pancreatitis. There is dilation of the pancreas duct measuring up to 7 mm, similar to previous with atrophy of the pancreas body and tail. No acute inflammation is visible. No pseudocyst. 2. The appendix is not visualized. Bowel loops are nondilated. No acute inflammatory changes are seen involving the bowel. 3. Previous cholecystectomy. Electronically signed by: Armadno Carver MD 11/09/22 02:12 AM Discharge Plan Visit Data Chief Complaint: Abdominal Pain Stated Complaint: ABDOMINAL PAIN,CHEST PAIN,VOMITING,DIARRHEA ED Provider: Radu Alvarez Discharge Problem: Pancreatitis Forms Stand Alone Forms: [facility] Prescriptions Prescriptions: No Action paroxetine HCl 20 mg tablet 20 mg PO QAM pantoprazole 40 mg Tablet,Delayed Release (Dr/Ec) 40 mg PO QAM Qty: 30 0RF acetaminophen [Tylenol] 325 mg capsule 650 mg PO BID PRN (Reason: Fever Or Pain) Eliquis 5 mg tablet 5 mg PO BID glipizide 5 mg tablet extended release 24hr 5 mg PO DAILYBB hydroxyzine pamoate 25 mg capsule 25 mg PO BID PRN (Reason: Anxiety) Referrals Referrals: Dhiraj Myers DO [Primary Care Provider] -
[2022-11-09 00:20] LABS: Albumin Globulin Ratio 1.3 (0.9-2); Albumin Level 4.2 gm/dl (3.4-5.0); BUN Creatinine Ratio 9.2 (10-20); Bilirubin,Total 0.6 mg/dl (0.2-1.0); Calcium 9.8 mg/dl (8.6-10.3); Creatinine Clr Calc Pharmacy 112.7 ml/min; Est GFR (African American) 117.5 ml/min; Est GFR (Non-African American) 101.3 ml/min; Globulin 3.3 gm/dl (2.5-4.0); Potassium 3.9 mmol/L (3.5-5.1); Total Protein 7.5 gm/dl (6.0-8.3)
[2022-11-09] MEDS ORDERED: OPTIRAY 350 100ml IV ONE (00:47)
--- NOTE | 2022-11-09 02:13 | CT Scan Report ---
Exam(s): CT ABDOMEN + PELVIS With Contrast IV Amt: 84 ML OPTIRAY 350 EXAM: CT Abdomen and Pelvis With Intravenous Contrast CLINICAL HISTORY: Reason for exam: mid abd pain, hx of pancreatitis. TECHNIQUE: Axial computed tomography images of the abdomen and pelvis with intravenous contrast. Automated exposure control was utilized for the study. A dose lowering technique was utilized adhering to the principles of ALARA. CONTRAST: Patient received 84 ML OPTIRAY 350 of IV contrast COMPARISON: October 19, 2022 FINDINGS: Lung bases: Unremarkable. No mass. No consolidation. ABDOMEN: Liver: There is fatty infiltration of the liver. No focal liver lesion is seen. Gallbladder and bile ducts: Previous cholecystectomy. No biliary duct dilation or choledocholithiasis is seen. Pancreas: There are punctate calcification is in the pancreatic head consistent with chronic pancreatitis. There is dilation of the pancreas duct measuring up to 7 mm, similar to previous with atrophy of the pancreas body and tail. No acute inflammation is visible. No pseudocyst. Spleen: Unremarkable. No splenomegaly. Adrenals: Unremarkable. No mass. Kidneys and ureters: Unremarkable. No solid mass. No hydronephrosis. Stomach and bowel: Unremarkable. No obstruction. No mucosal thickening. PELVIS: Appendix: The appendix is not visualized. Bowel loops are nondilated. No acute inflammatory changes are seen involving the bowel. Bladder: Unremarkable. No mass. Reproductive: Unremarkable as visualized. ABDOMEN and PELVIS: Intraperitoneal space: Unremarkable. No free air. No significant fluid collection. Bones/joints: Metallic artifact from previous multilevel fusion, instrumentation, and laminectomy throughout the lower lumbar spine. No acute fracture or subluxation is seen. Soft tissues: Unremarkable. Vasculature: Unremarkable. No abdominal aortic aneurysm. Lymph nodes: Unremarkable. No enlarged lymph nodes. IMPRESSION: 1. There are punctate calcification is in the pancreatic head consistent with chronic pancreatitis. There is dilation of the pancreas duct measuring up to 7 mm, similar to previous with atrophy of the pancreas body and tail. No acute inflammation is visible. No pseudocyst. 2. The appendix is not visualized. Bowel loops are nondilated. No acute inflammatory changes are seen involving the bowel. 3. Previous cholecystectomy. Electronically signed by: Armando Carver MD 11/09/22 02:12 AM
[2022-11-09] MEDS ORDERED: HYDROmorphone INJ 0.5 MG/0.5 ML SYR IV STA (03:29)
[2022-11-09] MEDS ORDERED: NovoLIN-R INSULIN PER UNIT CHARGE IV STA (04:40)
[2022-11-09] MEDS ORDERED: LANTUS PER UNIT CHARGE SQ STA (05:10)
[2022-11-09] MEDS ORDERED: GABAPENTIN 600 MG TAB PO ONE (05:49)
[2022-11-09] MEDS ORDERED: ACETAMINOPHEN 325 MG TAB PO PRN (05:49)
[2022-11-09] MEDS ORDERED: hydrOXYzine HCl 25 MG TAB PO PRN (05:49)
[2022-11-09] MEDS ORDERED: CARBOHYDRATES FOR HYPOGLYCEMIA PO PRN (05:49)
[2022-11-09] MEDS ORDERED: GLUCOSE 40% GEL 15 GM TUBE PO PRN (05:49)
[2022-11-09] MEDS ORDERED: LORazepam 2 MG/1 ML VIAL IV PRN ×3 (05:49)
[2022-11-09] MEDS ORDERED: GLUCAGON FOR INJ 1 MG VIAL SQ PRN (05:49)
[2022-11-09] MEDS ORDERED: DEXTROSE 50% 50 ML SYRINGE IV PRN (05:49)
[2022-11-09] MEDS ORDERED: GABAPENTIN 1200MG ALCOHOL WITHDRAWAL LOAD PO STA (05:49)
[2022-11-09] MEDS ORDERED: GLUCOSE 10 TAB/TUBE PO PRN (05:49)
[2022-11-09] MEDS ORDERED: Ativan IV Alcohol Withdrawal--Active Protocol IV PRN (05:49)
--- NOTE | 2022-11-09 06:01 | History and Physical Report ---
DATE OF ADMISSION: 11/09/2022. CHIEF COMPLAINT: Abdominal pain. HISTORY OF PRESENT ILLNESS: This is a 47-year-old male with past medical history significant for ADHD, mood disorder as per records, history of diabetes, on oral medications, GERD, Renae's esophagus, history of multiple recurrent admissions for alcoholic pancreatitis, history of PE, history of recurrent DVT, currently on Eliquis, chronic pain, history of narcotic abuse as per records, terminated medication agreement, history of multiple admissions because of abdominal pain. The patient says he is still drinking beer 6-8 beers daily. Since yesterday morning having severe abdominal pain, nausea, vomiting and diarrhea. No blood in the stools, no blood in the vomitus. That is the reason he came here . He states the pain sometimes radiating to his chest, no shortness of breath, no headache, no blurred visions, no earache, no runny nose, no sore throat, no cough, no fevers, resting comfortably and hemodynamically stable. ALLERGIES: No known drug allergies. PAST MEDICAL HISTORY: As mentioned above. PAST SURGICAL HISTORY: History of EGDs, EGD with endoscopic ultrasound, lumbar fusion surgery. Also, appendectomy and laparoscopic cholecystectomy. FAMILY HISTORY: Significant for father had alcohol abuse. SOCIAL HISTORY: Chews tobacco daily. Drinking currently 8 beers daily. No drug use. REVIEW OF SYSTEMS: As per HPI. Rest of review of system is negative. MEDICATIONS: The patient is on Tylenol 650 mg p.o. b.i.d. p.r.n., Eliquis 5 mg p.o. b.i.d., glipizide 5 mg p.o. daily, hydroxyzine 25 mg p.o. b.i.d. p.r.n., Protonix 40 mg p.o. daily, paroxetine 20 mg p.o. daily. PHYSICAL EXAMINATION: GENERAL: The patient is alert, oriented, not in acute distress. VITAL SIGNS: Temperature 36.7, pulse 80, respiratory rate 16, blood pressure 107/63, oxygen 94% on room air. HEENT: Pupils equal, round and reactive to light. Oral mucosa moist. NECK: No JVD, no neck masses. CARDIOVASCULAR: S1 and S2 heard. Regular rate and rhythm. No murmur, no gallop. RESPIRATORY SYSTEM: Normal AP diameter. No accessory muscle use. No wheezing or crackles. ABDOMEN: Soft, diffuse tenderness. Mild guarding present. No rigidity, no distention. CENTRAL NERVOUS SYSTEM: Alert and oriented. Speech is clear. No facial droop. Obeys simple commands. Moves extremities. EXTREMITIES: No edema, no erythema. LABORATORY DATA: WBC 5.5, hemoglobin 14.8, hematocrit 40.4, platelets 164. Sodium 130, potassium 3.9, chloride 96, CO2 21, BUN 8, creatinine 0.8, serum glucose 374, calcium 9.8, total bilirubin 0.6, AST 35, ALT 36, alkaline phosphatase 81, lipase 26. Urinalysis negative. SARS-CoV-2 rapid test negative. IMAGING DATA: CT of abdomen and pelvis showing chronic pancreatitis. Dilatation of the pancreatic tail measuring 7 mm, similar to previous with hypertrophy of the pancreatic body and tail. No acute inflammation as well. No pseudocyst. No acute inflammatory changes seen involving the bowel. EKG, normal sinus rhythm at a rate of 90.No significant change was found. ASSESSMENT AND PLAN: This is a 47-year-old male, presents with abdominal pain. 1. Abdominal pain. Multiple admissions for chronic pancreatitis, recurrent pancreatitis and chronic pancreatitis.CT scan no acute pancreatitis. Admitted the patient to the medical floor, placed on IV fluids, n.p.o. for now. Pain control. 2. Alcoholism. Monitor for alcohol withdrawal. gabapentin alcohol withdrawal protocol, IV Ativan p.r.n., banana bag, IV Ativan, IV thiamine and folic acid. 3. History of deep venous thrombosis and pulmonary embolism. Continue Eliquis. 4. Diabetes with hyperglycemia. We will hold glipizide. Placed on Lantus 6 units daily and insulin sliding scale. Monitor the blood sugars. 5. Gastroesophageal reflux disease. Continue Protonix. 6. Mood disorder. Continue paroxetine. 7. Deep venous thrombosis prophylaxis. On Eliquis. DISPOSITION: Closely monitor in the medical floor. Expect to discharge home and follow with family doctor. Job ID: [id number] MARGARET
[2022-11-09] MEDS ORDERED: CEROVITE ADV FORMULA TAB PO ONE (06:15)
[2022-11-09] MEDS ORDERED: THIAMINE HCL 100 MG, FOLIC ACID 1 MG in SODIUM CHLORIDE 0.9% 1000ML 1,000 ML IV SCH (06:15)
[2022-11-09] MEDS ORDERED: Flu Vaccine (Fluarix) 0.5mL SYR (Standard Dose) IM ONE (06:30)
[2022-11-09] MEDS: INSULIN ASPART PER UNIT CHARGE SC SCH ×4 (06:35→20:59)
[2022-11-09] MEDS: HYDROmorphone INJ 0.5 MG/0.5 ML SYR IV PRN ×5 (07:30→23:15)
[2022-11-09] MEDS: APIXABAN 5 MG TABLET PO SCH ×2 (08:40→20:59)
[2022-11-09] MEDS: PANTOprazole 40 MG TAB PO SCH (08:40)
[2022-11-09] MEDS: PARoxetine HCL 20 MG TAB PO SCH (08:40)
--- NOTE | 2022-11-09 10:11 | Electrocardiogram Report ---
Test Reason : Blood Pressure : / mmHG Vent. Rate : 098 BPM Atrial Rate : 098 BPM P-R Int : 134 ms QRS Dur : 082 ms QT Int : 366 ms P-R-T Axes : 039 050 063 degrees QTc Int : 467 ms Normal sinus rhythm Minor Anterior ST elevation, most consistent with repolarization variant Normal ECG When compared with ECG of 22-OCT-2022 05:37, Vent. rate has increased BY 34 BPM Confirmed by Mundo Ordonez ([id number]) on 11/09/2022 10:11:04 AM Referred By: REFERRED SELF Confirmed By:Mundo Ordonez
[2022-11-09] MEDS: GABAPENTIN 600 MG TAB PO SCH ×3 (10:33→23:17)
[2022-11-09] MEDS: ONDANSETRON INJ 2 MG/ML 2 ML VIAL IV PRN ×2 (11:39→21:02)
[2022-11-09] MEDS ORDERED: Nursing to Pharmacy Communication SCH (15:00)
[2022-11-09] MEDS ORDERED: DEXTROSE 5% 1,000 ML IV SCH (15:45)
--- NOTE | 2022-11-09 19:43 | Communication Note ---
Date of Service: November 09, 2022 Patient was admitted earlier today for abdominal pain. Seen and examined bedside. Patient is an alcoholic with chronic pancreatitis. States nausea and not eating yet. States has upper abdominal pain. Pain is controlled with IV pain medication. He was given Lantus this morning and had symptomatic hypoglycemia with blood sugar in 50s requiring IV dextrose and drip. Will hold Lantus, continue sliding cell insulin, start on clears and advance as tolerated. Pain management. Continue alcohol withdrawal protocol. See H&P note for details of presentation.
[2022-11-10] MEDS: PROMETHAZINE HCL 12.5 MG in SODIUM CHLORIDE 0.9% 50 ML IV PRN ×3 (00:47→22:23)
[2022-11-10] MEDS: HYDROmorphone INJ 0.5 MG/0.5 ML SYR IV PRN ×5 (05:35→22:24)
[2022-11-10 06:26] LABS: Basophils # (auto) 0.04 K/uL (0-0.2); Basophils % (auto) 0.9 %; Eosinophils # (auto) 0.38 K/uL (0-0.50); Eosinophils % (auto) 8.9 %; Hematocrit (blood only) 41.5 % (42.0-52.0); Immature Granulocytes # (auto) 0.01 K/uL (0.01-0.20); Immature Granulocytes % (auto) 0.2 %; Lymphocytes # (auto) 1.08 K/uL (1.2-3.4); Lymphocytes % (auto) 25.2 %; Mean Corpuscular Hemoglobin 33.2 pg (25.0-34.0); Mean Corpuscular Hgb Conc 36.1 g/dL (32.0-36.0); Mean Corpuscular Volume 91.8 fL (80.0-100.0); Mean Platelet Volume 9.7 fL (9.4-12.4); Monocytes # (auto) 0.38 K/uL (0.11-0.59); Monocytes % (auto) 8.9 %; Neutrophils % (auto) 55.9 %; Platelet Count 127 K/uL (130-400); RDW Coefficient of Variation 11.5 % (11.5-14.5); RDW Standard Deviation 39.3 fL (36.4-46.3); Red Blood Count 4.52 M/uL (4.70-6.10); White Blood Count 4.29 K/ul (4.8-10.8)
[2022-11-10 06:43] LABS: BUN Creatinine Ratio 5.2 (10-20); Calcium 9.2 mg/dl (8.6-10.3); Creatinine Clr Calc Pharmacy 127.4 ml/min; Est GFR (African American) 123.5 ml/min; Est GFR (Non-African American) 106.6 ml/min; Magnesium 1.9 mg/dl (1.7-2.4); Potassium 4.3 mmol/L (3.5-5.1)
[2022-11-10 08:28] LABS: Estimated Average Glucose 260 mg/dl; Hemoglobin A1C 10.7 % (4.5-5.6)
[2022-11-10] MEDS ORDERED: LANTUS PER UNIT CHARGE SQ SCH ×2 (09:00→21:00)
[2022-11-10] MEDS: FOLIC ACID 1 MG in SYRINGE 9.8 ML IV SCH ×2 (09:51→10:02)
[2022-11-10] MEDS: GABAPENTIN 600 MG TAB PO SCH ×2 (09:51→16:27)
[2022-11-10] MEDS: THIAMINE HCL 100 MG in SYRINGE 9 ML IV SCH ×2 (09:51→10:02)
[2022-11-10] MEDS: INSULIN ASPART PER UNIT CHARGE SC SCH ×4 (09:51→20:20)
[2022-11-10] MEDS: APIXABAN 5 MG TABLET PO SCH ×2 (09:51→20:20)
[2022-11-10] MEDS: PANTOprazole 40 MG TAB PO SCH (09:51)
[2022-11-10] MEDS: PARoxetine HCL 20 MG TAB PO SCH (09:51)
[2022-11-10] MEDS ORDERED: HYDROmorphone INJ 0.5 MG/0.5 ML SYR IV PRN (10:00)
[2022-11-10] MEDS: LACTATED RINGER'S 1,000 ML IV SCH ×2 (10:05→16:25)
--- NOTE | 2022-11-10 15:21 | Hospitalist Progress Note ---
Date of Service November 10, 2022 Assessment & Plan (1) Abdominal pain: (2) Chronic pancreatitis: Plan: 47-year-old male with past medical history significant for ADHD, mood disorder as per records, history of diabetes on oral medications, GERD, Renae's esophagus, history of multiple recurrent admissions for alcoholic pancreatitis, history of PE, history of recurrent DVT, currently on Eliquis, chronic pain, history of narcotic abuse as per records, terminated medication agreement, history of multiple admissions because of abdominal pain who presented to the ED for evaluation of severe abdominal pain, nausea, vomiting. Patient continues to drink about 10 beers per day. Possible acute on chronic pancreatitis however normal lipase and CT abdomen pelvis without findings of acute pancreatitis/inflammation --chronic findings noted. Remains on clear liquids Continue IVF, pain, nausea control Advance diet as tolerated, attempt to reduce narcotic usage (3) Alcohol abuse: Plan: History of long standing alcohol abuse, currently drinking 10 beers per day On alcohol withdrawal protocol with gabapentin No signs of withdrawal (4) History of DVT (deep vein thrombosis): (5) History of pulmonary embolism: Plan: Continue Eliquis (6) DM type 2 (diabetes mellitus, type 2): Plan: Hgb A1c 10.7 11/10/2022 Typically on glipizide at home, holding while admitted Received Lantus yesterday and developed hypoglycemia, likely due to poor p.o. intake. Blood sugars currently acceptable on NovoLog per protocol. DVT PROPHYLAXIS On Eliquis I spent a total of 40 minutes coordinating, documenting, and providing care for this patient excluding time spent in the performance of separately billed services. This included personally reviewing all current laboratories and imaging studies, medication reconciliation, outpatient chart review, and discussion with specialists. Admission and Anticipated Discharge Date Admission Date: November 09, 2022 Supervising Physician Co-Signing Physician Notes Patient was seen and examined independently at bedside. Chart reviewed. Case discussed with Katina FARLEY and agree with the documentation above with regards to subjective objective, and assessment and plan. Subjective Follow-up for acute on chronic pancreatitis. Patient seen and examined. Reports continued nausea and epigastric pain with clear liquids. No vomiting. Denies chest pain shortness of breath. Had episode of hypoglycemia yesterday a.m., now resolved. Physical Exam Constitutional: WD/WN, vitals as above Respiratory: normal respiratory effort, lungs clear to auscultation Cardiovascular: Rate/Rhythm: regular rate and regular rhythm Vessels: normal peripheral pulses Extremities: no edema Gastrointestinal (Abdomen): Inspection/Auscultation: abdomen not distended Percussion/Palpation: + abdomen tender (Epigastric/upper abdomen) and abdomen soft Skin: no rashes, warm and dry Neurologic: no focal motor deficits Psychiatric: A+Ox3, euthymic affect Results & Data Results & Data Vital Signs (Past 12 Hours) Vital Signs Temp Pulse Resp BP Pulse Ox O2 Del Method 11/10/22 07:45 36.4 C L 72 18 116/77 98 Room Air Laboratory Results Short CBC 11/10/22 Range/Units 06:05 WBC 4.29 L (4.8-10.8) K/ul Hgb 15.0 (14.0-18.0) g/dl Hct 41.5 L (42.0-52.0) % Plt Count 127 L (130-400) K/uL BMP 11/10/22 06:05 Sodium 139 D Potassium 4.3 Chloride 105 Carbon Dioxide 29 BUN 4 L Creatinine 0.77 Glucose 170 H Calcium 9.2 (6) DM type 2 (diabetes mellitus, type 2) Diabetes mellitus complication status: with other specified complication Diabetes mellitus terminal makeup operator insulin use: with care home use Qualified Code(s): E11.69 - Type 2 diabetes mellitus with other specified complication; Z79.4 - senior living (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
[2022-11-10] MEDS ORDERED: LACTATED RINGER'S 1,000 ML IV ONE (20:32)
[2022-11-11] MEDS: HYDROmorphone INJ 0.5 MG/0.5 ML SYR IV PRN ×3 (02:35→10:47)
[2022-11-11] MEDS ORDERED: GABAPENTIN 600 MG TAB PO SCH (04:30)
[2022-11-11 07:17] VITALS: BP 127/85; PULSE 69; TEMP 98.2; O2SAT 100
[2022-11-11] MEDS: PANTOprazole 40 MG TAB PO SCH (08:11)
[2022-11-11] MEDS: APIXABAN 5 MG TABLET PO SCH (08:11)
[2022-11-11] MEDS: FOLIC ACID 1 MG in SYRINGE 9.8 ML IV SCH (08:12)
[2022-11-11] MEDS: THIAMINE HCL 100 MG in SYRINGE 9 ML IV SCH (08:12)
[2022-11-11] MEDS: PARoxetine HCL 20 MG TAB PO SCH (08:12)
[2022-11-11 08:41] LABS: Calcium 9.5 mg/dl (8.6-10.3); Potassium 4.3 mmol/L (3.5-5.1)
[2022-11-11] MEDS ORDERED: LANTUS PER UNIT CHARGE SQ SCH (09:00)
[2022-11-11 09:28] LABS: BUN Creatinine Ratio 3.8 (10-20); Creatinine Clr Calc Pharmacy 125.7 ml/min; Est GFR (African American) 122.8 ml/min
[2022-11-11] MEDS: INSULIN ASPART PER UNIT CHARGE SC SCH ×2 (09:30→12:37)
--- NOTE | 2022-11-11 14:11 | Discharge Summary ---
Date of Service November 11, 2022 Admission HPI Per Admitting Provider This is a 47-year-old male with past medical history significant for ADHD, mood disorder as per records, history of diabetes, on oral medications, GERD, Renae's esophagus, history of multiple recurrent admissions for alcoholic pancreatitis, history of PE, history of recurrent DVT, currently on Eliquis, chronic pain, history of narcotic abuse as per records, terminated medication agreement, history of multiple admissions because of abdominal pain. The patient says he is still drinking beer 6-8 beers daily. Since yesterday morning having severe abdominal pain, nausea, vomiting and diarrhea. No blood in the stools, no blood in the vomitus. That is the reason he came here . He states the pain sometimes radiating to his chest, no shortness of breath, no headache, no blurred visions, no earache, no runny nose, no sore throat, no cough, no fevers, resting comfortably and hemodynamically stable. Admission Exam Per Admitting Provider GENERAL: The patient is alert, oriented, not in acute distress. VITAL SIGNS: Temperature 36.7, pulse 80, respiratory rate 16, blood pressure 107/63, oxygen 94% on room air. HEENT: Pupils equal, round and reactive to light. Oral mucosa moist. NECK: No JVD, no neck masses. CARDIOVASCULAR: S1 and S2 heard. Regular rate and rhythm. No murmur, no gallop. RESPIRATORY SYSTEM: Normal AP diameter. No accessory muscle use. No wheezing or crackles. ABDOMEN: Soft, diffuse tenderness. Mild guarding present. No rigidity, no distention. CENTRAL NERVOUS SYSTEM: Alert and oriented. Speech is clear. No facial droop. Obeys simple commands. Moves extremities. EXTREMITIES: No edema, no erythema. Principal Diagnosis Acute on chronic abdominal pain in setting of chronic pancreatitis and continued alcohol abuse, Hyponatremia, DM-2 Discharge Exam General: Lying comfortably in bed, not in distress, on room air HEENT: EOMI, TAMMY, MMM Chest: Clear breath sounds bilaterally, no wheezes or crackles CVS: Regular rate and rhythm, normal heart sounds, no murmur Abdomen: Soft, non tender, not distended, normal bowel sounds Neuro: Awake, alert, oriented, conversing well, non focal Extremities: No cyanosis, clubbing or edema Discharge Data Allergies Allergy/AdvReac Type Severity Reaction Status Date / Time No Known Allergies Allergy Verified 11/09/22 00:22 Consultations 11/09/22 02:28 ED Decision to Admit Stat Ordered Studies 11/09/22 00:01 CT Abd and Pelvis [CT abd pelvis IV con only] Stat Laboratory Results WBC 4.29 K/ul (4.8-10.8) L 11/10/22 06:05 RBC 4.52 M/uL (4.70-6.10) L 11/10/22 06:05 Hgb 15.0 g/dl (14.0-18.0) 11/10/22 06:05 Hct 41.5 % (42.0-52.0) L 11/10/22 06:05 MCV 91.8 fL (80.0-100.0) 11/10/22 06:05 MCH 33.2 pg (25.0-34.0) 11/10/22 06:05 MCHC 36.1 g/dL (32.0-36.0) H 11/10/22 06:05 RDW Std Deviation 39.3 fL (36.4-46.3) 11/10/22 06:05 RDW Coeff of Gucci 11.5 % (11.5-14.5) 11/10/22 06:05 Plt Count 127 K/uL (130-400) L 11/10/22 06:05 MPV 9.7 fL (9.4-12.4) 11/10/22 06:05 Immature Gran % (Auto) 0.2 % 11/10/22 06:05 Neut % (Auto) 55.9 % 11/10/22 06:05 Lymph % (Auto) 25.2 % 11/10/22 06:05 [place] % (Auto) 8.9 % 11/10/22 06:05 Eos % (Auto) 8.9 % 11/10/22 06:05 Baso % (Auto) 0.9 % 11/10/22 06:05 Neut # (Auto) 2.40 K/uL (1.40-6.50) 11/10/22 06:05 Lymph # (Auto) 1.08 K/uL (1.2-3.4) L 11/10/22 06:05 [place] # (Auto) 0.38 K/uL (0.11-0.59) 11/10/22 06:05 Eos # (Auto) 0.38 K/uL (0-0.50) 11/10/22 06:05 Baso # (Auto) 0.04 K/uL (0-0.2) 11/10/22 06:05 Immature Gran # (Auto) 0.01 K/uL (0.01-0.20) 11/10/22 06:05 Sodium 136 mmol/L (136-145) 11/11/22 07:57 Potassium 4.3 mmol/L (3.5-5.1) 11/11/22 07:57 Chloride 100 mmol/L (98-107) 11/11/22 07:57 Carbon Dioxide 33 mmol/L (21-32) H 11/11/22 07:57 Anion Gap 3 (3-11) 11/11/22 07:57 BUN 3 mg/dl (6-23) L 11/11/22 07:57 Creatinine 0.78 mg/dl (0.6-1.4) 11/11/22 07:57 Est Cr Clr Drug Dosing 125.7 ml/min 11/11/22 07:57 Est GFR ( Amer) 122.8 ml/min 11/11/22 07:57 Est GFR (Non-Af Amer) 106.0 ml/min 11/11/22 07:57 BUN/Creatinine Ratio 3.8 (10-20) L 11/11/22 07:57 Glucose 302 mg/dl (70-99(Fasting)) H* 11/11/22 07:57 POC Glucose 95 mg/dl (70-99) 11/11/22 12:25 Estimat Average Glucose 260 mg/dl 11/10/22 06:05 Hemoglobin A1c 10.7 % (4.5-5.6) H 11/10/22 06:05 Calcium 9.5 mg/dl (8.6-10.3) 11/11/22 07:57 Magnesium 1.9 mg/dl (1.7-2.4) 11/10/22 06:05 Total Bilirubin 0.6 mg/dl (0.2-1.0) 11/08/22 23:28 AST 35 U/L (13-39) 11/08/22 23:28 ALT 36 U/L (7-52) 11/08/22 23:28 Alkaline Phosphatase 81 U/L (34-104) 11/08/22 23:28 Troponin I High Sens 3.9 pg/ml (0-20) 11/09/22 07:09 Total Protein 7.5 gm/dl (6.0-8.3) 11/08/22 23:28 Albumin 4.2 gm/dl (3.4-5.0) 11/08/22 23:28 Globulin 3.3 gm/dl (2.5-4.0) 11/08/22 23:28 Albumin/Globulin Ratio 1.3 (0.9-2) 11/08/22 23:28 Lipase 26 U/L (11-82) 11/08/22 23:28 Urine Color Yellow 11/08/22 23:22 Urine Appearance Clear (Clear) 11/08/22 23:22 Urine pH 5.0 (4.5-7.5) 11/08/22 23:22 Ur Specific [place] 1.009 (1.000-1.030) 11/08/22 23:22 Urine Protein Negative (Negative) 11/08/22 23:22 Urine Glucose (UA) 3+ (Negative) H 11/08/22 23:22 Urine Ketones Negative (Negative) 11/08/22 23:22 Urine Blood Negative (Negative) 11/08/22 23:22 Urine Nitrite Negative (Negative) 11/08/22 23:22 Urine Bilirubin Negative (Negative) 11/08/22 23:22 Urine Urobilinogen Negative (Negative) 11/08/22 23:22 Ur Leukocyte Esterase Negative (Negative) 11/08/22 23:22 SARS-CoV-2, RNA, NAAT NEGATIVE (NEGATIVE) 11/09/22 02:45 Impressions Abdomen/Pelvis CT 11/09/22 00:01 Exam(s): CT ABDOMEN + PELVIS With Contrast IV Amt: 84 ML OPTIRAY 350 EXAM: CT Abdomen and Pelvis With Intravenous Contrast CLINICAL HISTORY: Reason for exam: mid abd pain, hx of pancreatitis. TECHNIQUE: Axial computed tomography images of the abdomen and pelvis with intravenous contrast. Automated exposure control was utilized for the study. A dose lowering technique was utilized adhering to the principles of ALARA. CONTRAST: Patient received 84 ML OPTIRAY 350 of IV contrast COMPARISON: October 19, 2022 FINDINGS: Lung bases: Unremarkable. No mass. No consolidation. ABDOMEN: Liver: There is fatty infiltration of the liver. No focal liver lesion is seen. Gallbladder and bile ducts: Previous cholecystectomy. No biliary duct dilation or choledocholithiasis is seen. Pancreas: There are punctate calcification is in the pancreatic head consistent with chronic pancreatitis. There is dilation of the pancreas duct measuring up to 7 mm, similar to previous with atrophy of the pancreas body and tail. No acute inflammation is visible. No pseudocyst. Spleen: Unremarkable. No splenomegaly. Adrenals: Unremarkable. No mass. Kidneys and ureters: Unremarkable. No solid mass. No hydronephrosis. Stomach and bowel: Unremarkable. No obstruction. No mucosal thickening. PELVIS: Appendix: The appendix is not visualized. Bowel loops are nondilated. No acute inflammatory changes are seen involving the bowel. Bladder: Unremarkable. No mass. Reproductive: Unremarkable as visualized. ABDOMEN and PELVIS: Intraperitoneal space: Unremarkable. No free air. No significant fluid collection. Bones/joints: Metallic artifact from previous multilevel fusion, instrumentation, and laminectomy throughout the lower lumbar spine. No acute fracture or subluxation is seen. Soft tissues: Unremarkable. Vasculature: Unremarkable. No abdominal aortic aneurysm. Lymph nodes: Unremarkable. No enlarged lymph nodes. IMPRESSION: 1. There are punctate calcification is in the pancreatic head consistent with chronic pancreatitis. There is dilation of the pancreas duct measuring up to 7 mm, similar to previous with atrophy of the pancreas body and tail. No acute inflammation is visible. No pseudocyst. 2. The appendix is not visualized. Bowel loops are nondilated. No acute inflammatory changes are seen involving the bowel. 3. Previous cholecystectomy. Electronically signed by: Armando Carver MD 11/09/22 02:12 AM Hospital Course (1) Abdominal pain: resolved. tolerating diet well without issues. (2) Chronic pancreatitis: (3) Alcohol abuse: (4) History of DVT (deep vein thrombosis): (5) History of pulmonary embolism: On eliquis (6) DM type 2 (diabetes mellitus, type 2): Hgb A1c 10.7 11/10/2022 (7) Hyponatremia: Resolved. Plan 47-year-old male with past medical history significant for ADHD, mood disorder as per records, history of diabetes on oral medications, GERD, Renae's e sophagus, history of multiple recurrent admissions for alcoholic pancreatitis, history of PE, history of recurrent DVT, currently on Eliquis, chronic pain, history of narcotic abuse as per records, terminated medication agreement, history of multiple admissions because of abdominal pain who presented to the ED for evaluation of severe abdominal pain, nausea, vomiting. Patient continues to drink about 10 beers per day. Patient was managed conservatively with IV fluids, IV analgesics, antiemetics, bowel rest with gradual advancement in diet. Patient now has been tolerating regular diet without issues. Pain is controlled. His hyponatremia has resolved. He feels comfortable to go home. He currently does not have an signs or symptoms of alcohol withdrawal. Recommended quitting alcohol. Recommend following up with PCP for better management of blood sugar. Medications were not changed at discharge. Total Time Total Time Spent Total Time Spent (In Minutes): 40 Discharge Plan Discharge Items Patient Disposition: Home - Home Health Services Reason For Visit: ABDOMINAL PAIN Discharge Diagnosis: Acute on chronic abdominal pain in setting of chronic pancreatitis and continued alcohol abuse, Hyponatremia, DM-2 Activity: Resume your previous activity Non-emergency contact: Primary Care Provider Call non-emergency contact if: you have any medication questions, your symptoms worsen, your pain is not controlled and your pain is concerning for you Follow-up/Referrals: Dhiraj Myers, [Primary Care Provider] - Diet: Regular Addtl Attending Provider Instructions: Recommend quitting alcohol. Recommend better control of your diabetes. Follow up with your family doctor Pending Studies at Discharge: No Stand-Alone Forms: [facility] [place], Smoking Cessation Medications and DC Order Prescriptions: Continued paroxetine HCl 20 mg tablet 20 mg PO QAM pantoprazole 40 mg Tablet,Delayed Release (Dr/Ec) 40 mg PO QAM Qty: 30 0RF acetaminophen [Tylenol] 325 mg capsule 650 mg PO BID PRN (Reason: Fever Or Pain) Eliquis 5 mg tablet 5 mg PO BID glipizide 5 mg tablet extended release 24hr 5 mg PO DAILYBB hydroxyzine pamoate 25 mg capsule 25 mg PO BID PRN (Reason: Anxiety) Discharge Orders: Discharge Order (Routine); Ordered 11/11/22 Ordered By: Clyde Sarmiento Admission Data Admit Date/Time: 11/09/22 04:24 Attending Provider: Clyde Sarmiento Admit Provider: Jed Sousa Primary Care Provider: Dhiraj Myers Other Providers: Jed Sousa
[2022-11-12] MEDS ORDERED: GABAPENTIN 600 MG TAB PO SCH (16:30)
== END 2022-11-11 15:06 | disposition home or self-care (01) | DRG 439 ==
LOC: ED 21:57 → SUATTDRO 11-09 04:24 → 3N 11-09 04:24

== ENCOUNTER 2022-11-16 22:25 | Inpatient (IN) ==
[2022-11-16] MEDS ORDERED: FAMOTIDINE 20MG IV PUSH 20 MG/5 ML SYR IV STA (22:31)
[2022-11-16] MEDS ORDERED: DROPERIDOL 5 MG/2 ML VIAL IV STA (22:31)
[2022-11-16] MEDS ORDERED: diphenhydrAMINE 50 MG/ML VIAL IV STA (22:31)
--- NOTE | 2022-11-16 22:35 | Emergency Department Note ---
History of Present Illness General Chief complaint: Abdominal Pain Stated complaint: ETOH, R Sided Upper Quadrant Pain, Pancreatitis Time Seen by Provider: 11/16/22 22:26 History of Present Illness Maximum Pain Intensity: 7 This is a 47-year-old male with past medical history significant for ADHD, mood disorder as per records, history of diabetes, on oral medications, GERD, Renae's esophagus, history of multiple recurrent admissions for alcoholic pancreatitis, history of PE, history of recurrent DVT, currently on Eliquis, chronic pain, history of narcotic abuse as per records, terminated medication agreement, history of multiple admissions because of abdominal pain presents to the ER complaining of worsening abdominal pain has been drinking alcohol all day. Patient denies chest pain, dyspnea, fevers, flulike illness. He feels that he has another flare of his pancreatitis. Home Medications Medication Instructions Recorded Confirmed Type paroxetine HCl 20 mg tablet 20 mg PO QAM 12/20/19 11/16/22 History pantoprazole 40 mg tablet,delayed 40 mg PO QAM #30 tabs 03/01/21 11/16/22 Rx release acetaminophen 325 mg capsule 650 mg PO BID PRN Fever Or Pain 08/17/22 11/16/22 History (Tylenol) apixaban 5 mg tablet (Eliquis) 5 mg PO DAILY 08/17/22 11/16/22 History glipizide 5 mg tablet, extended 5 mg PO DAILYBB 10/20/22 11/16/22 History release 24 hr hydroxyzine pamoate 25 mg capsule 25 mg PO BID PRN Anxiety 10/20/22 11/16/22 History Allergies Allergy/AdvReac Type Severity Reaction Status Date / Time No Known Allergies Allergy Verified 11/16/22 22:50 Past Med/Surg History Medical History (Updated 11/17/22 @ 01:01 by Maryan Jo PA-C) Abdominal pain Abdominal pain Abdominal pain, acute, epigastric Acute hyperglycemia Alcohol abuse (Unknown) Alcohol abuse Alcohol abuse Alcohol withdrawal Alcoholic ketosis Renae's esophagus (Unknown) "per EGD 11/23/09 " On 05/31/11 09:06 Martinez Jose wrote "per EGD 11/23/09 " Chest pain COVID-19 Depression Depression DM type 2 (diabetes mellitus, type 2) Encounter for alcohol abuse counseling and surveillance Encounter for pre-operative examination Encounter for tobacco use cessation counseling H/O acute pancreatitis "recurrent" History of substance abuse Hyperglycemia Intentional drug overdose Lumbar degenerative disc disease Mood disorder Mood disorder Nausea & vomiting Neuropathy Pancreatic duct stones Pancreatitis Panic disorder Pulmonary embolism Retrosternal chest pain Suicidal ideation Suicidal ideation Suicide attempt Surgical History H/O esophagogastroduodenoscopy "EGD 11/23/2009- mild gastritis, suspicious for gastroparesis, Z-line irregular EUS 02/04/2010- mild chronic pancreatitis, pronounced cholesterolosis of gallbladder, no biliary dilation or stones, probable gastroparesis EGD 10/31/2014- gastritis" S/P lumbar fusion L4-S1 2014 Family History Father Alcohol abuse Social History Smoking Status: Never smoker Tobacco Type: Smokeless Tobacco (Dip or Chew) Second Hand Exposure: No; Hx Alcohol Use: Yes Alcohol type: beer Hx Substance Use: Yes Last Used Substance: Unknown Preferred Language: [place] Citizen Communication Ability: Effective Food Critic Required: No Beliefs That Will Affect Care: None marital status: Current Living Situation: Parent Current Living Situation Comment: from home with mother How many Children do You have: 3 Feels Safe at Home: Yes Assistive Devices: None Review of Systems A total of 10 systems reviewed and were otherwise negative Physical Exam Vital Signs Vital Signs - 24 hr 11/16/22 22:21 11/16/22 22:21 11/16/22 22:31 Temperature 36.8 C Temperature Source Oral Pulse Rate 112 H 115 H Pulse Rate from SpO2 Sensor Pulse Rhythm Regular Respiratory Rate 20 18 Respiratory Effort / Characteristics Non-Labored Spontaneous Non-Labored Spontaneous Respiratory Depth Normal Blood Pressure 117/82 Blood Pressure Mean 93 Pulse Oximetry 97 95 Oxygen Delivery Method Room Air Room Air Sepsis Recent Fever Within 48 Hours No Sepsis New/Unexplained Change in Mental Status No Sepsis Action Taken by Nursing No Action Required 11/16/22 22:29 11/16/22 22:29 11/16/22 22:30 Temperature Temperature Source Pulse Rate 117 H 115 H 112 H Pulse Rate from SpO2 Sensor 116 H 113 H Pulse Rhythm Respiratory Rate 18 18 Respiratory Effort / Characteristics Respiratory Depth Blood Pressure 117/82 Blood Pressure Mean 93 Pulse Oximetry 97 97 Oxygen Delivery Method Sepsis Recent Fever Within 48 Hours Sepsis New/Unexplained Change in Mental Status Sepsis Action Taken by Nursing 11/16/22 22:49 11/16/22 22:50 11/16/22 23:00 Temperature Temperature Source Pulse Rate 106 H 106 H 105 H Pulse Rate from SpO2 Sensor 106 H 106 H 105 H Pulse Rhythm Respiratory Rate 17 21 22 Respiratory Effort / Characteristics Respiratory Depth Blood Pressure Blood Pressure Mean Pulse Oximetry 96 97 94 Oxygen Delivery Method Sepsis Recent Fever Within 48 Hours Sepsis New/Unexplained Change in Mental Status Sepsis Action Taken by Nursing 11/16/22 23:09 11/16/22 23:10 11/16/22 23:20 Temperature Temperature Source Pulse Rate 104 H 107 H 101 H Pulse Rate from SpO2 Sensor 104 H 107 H 101 H Pulse Rhythm Respiratory Rate 17 20 19 Respiratory Effort / Characteristics Respiratory Depth Blood Pressure 106/74 Blood Pressure Mean 84 Pulse Oximetry 95 95 98 Oxygen Delivery Method Sepsis Recent Fever Within 48 Hours Sepsis New/Unexplained Change in Mental Status Sepsis Action Taken by Nursing 11/16/22 23:30 11/16/22 23:40 11/16/22 23:50 Temperature Temperature Source Pulse Rate 103 H 104 H 122 H Pulse Rate from SpO2 Sensor 103 H 104 H 122 H Pulse Rhythm Respiratory Rate 15 19 22 Respiratory Effort / Characteristics Respiratory Depth Blood Pressure 107/65 Blood Pressure Mean 79 Pulse Oximetry 98 98 98 Oxygen Delivery Method Sepsis Recent Fever Within 48 Hours Sepsis New/Unexplained Change in Mental Status Sepsis Action Taken by Nursing 11/17/22 00:00 11/17/22 00:23 11/17/22 00:30 Temperature Temperature Source Pulse Rate 100 H Pulse Rate from SpO2 Sensor 100 H 100 H 96 H Pulse Rhythm Respiratory Rate 15 24 16 Respiratory Effort / Characteristics Respiratory Depth Blood Pressure 140/88 114/75 Blood Pressure Mean 105 88 Pulse Oximetry 98 97 98 Oxygen Delivery Method Sepsis Recent Fever Within 48 Hours Sepsis New/Unexplained Change in Mental Status Sepsis Action Taken by Nursing VITALS: Vitals are noted on the nurse's note and reviewed by myself. Vital signs reviewed. GENERAL: White male with EtOH odor, in no acute distress, nondiaphoretic, well- developed well-nourished. SKIN: The skin was without rashes, erythema, edema, or bruising. There is no tenting of the skin. Capillary reflex less than 2 seconds. HEAD: Normocephalic atraumatic. EARS: External auditory canals clear, EYES: Pupils equal round and reactive to light and accommodation. Conjunctivae without injection, sclerae without icterus. Extraocular movements intact. NOSE: Patent, turbinates without inflammation or discharge. MOUTH: Mucous membranes moist. Pharynx without erythema or exudate. Uvula midline. Airway patent. Tongue does not deviate. NECK: Supple without nuchal rigidity. No lymphadenopathy. No thyromegaly. Ce rvical spine is nontender. No JVD. HEART: Regular rate and rhythm LUNGS: Clear to auscultation bilaterally without wheezes, rales or rhonchi. No retractions or accessory muscle use. ABDOMEN: Positive bowel sounds x 4. Normal tympanic percussion. Soft, tender mid upper abdomen, without masses or organomegaly. Estrella sign negative. No guarding or rebound tenderness. No CVA tenderness MUSCULOSKELETAL: No muscle atrophy, erythema, or edema noted. NEURO: Patient was alert and oriented to person place and time. Normal sensation to light and sharp touch. No focal neurological deficits. Course Administered Medications Sodium Chloride (Nss 1000ml) 1,000 mls @ 999 mls/hr IV .Q1H1M ONE Stop: 11/17/22 01:04 Last Admin: 11/17/22 00:23 Dose: 999 mls/hr Documented By: MIGUEL ANGEL Discontinued Medications Diphenhydramine HCl (Diphenhydramine 50 Mg/Ml Vial) 25 mg IV NOW STA Stop: 11/16/22 22:32 Last Admin: 11/16/22 22:44 Dose: 25 mg Documented By: MAHIN Droperidol (Droperidol 5 Mg/2 Ml Vial) 1.25 mg IV ONE STA Stop: 11/16/22 22:32 Last Admin: 11/16/22 22:43 Dose: 1.25 mg Documented By: MAHIN Famotidine (Pepcid 20mg Iv Push) 20 mg in 5 mls @ 2.5 mls/min IV NOW STA Stop: 11/16/22 22:32 Last Admin: 11/16/22 22:44 Dose: 2.5 mls/min Documented By: MAHIN Ioversol (Optiray 350 100ml) 100 ml IV ONCE ONE Stop: 11/17/22 00:17 Last Admin: 11/17/22 00:17 Dose: 83 ml Documented By: LUANN Medical Decision Making Medical Records Attestation: I reviewed the patient's medical records. Home Medications Current Medication List: was personally reviewed by me Laboratory Data Attestation: I reviewed the patient's lab results. 11/16/22 22:38 11/16/22 22:45 Lab Results 11/16/22 11/16/22 11/16/22 Range/Units 22:30 22:38 22:38 WBC 4.66 L (4.8-10.8) K/ul RBC 4.65 L (4.70-6.10) M/uL Hgb 15.6 (14.0-18.0) g/dl Hct 41.9 L (42.0-52.0) % MCV 90.1 (80.0-100.0) fL MCH 33.5 (25.0-34.0) pg MCHC 37.2 H (32.0-36.0) g/dL RDW Std Deviation 37.4 (36.4-46.3) fL RDW Coeff of Gucci 11.4 L (11.5-14.5) % Plt Count 187 (130-400) K/uL MPV 9.2 L (9.4-12.4) fL Immature Gran % (Auto) 0.2 % Neut % (Auto) 51.1 % Lymph % (Auto) 32.8 % [place] % (Auto) 9.4 % Eos % (Auto) 5.6 % Baso % (Auto) 0.9 % Neut # (Auto) 2.38 (1.40-6.50) K/uL Lymph # (Auto) 1.53 (1.2-3.4) K/uL [place] # (Auto) 0.44 (0.11-0.59) K/uL Eos # (Auto) 0.26 (0-0.50) K/uL Baso # (Auto) 0.04 (0-0.2) K/uL Immature Gran # (Auto) 0.01 (0.01-0.20) K/uL ABG pH (7.35-7.45) ABG pCO2 (35-46) mmHg ABG pO2 (80-95) mmHg ABG HCO3 (19-24) mmol/L ABG O2 Saturation (90-95) % ABG Base Excess (-9-1.8) mEq/L Sodium (136-145) mmol/L Potassium (3.5-5.1) mmol/L Chloride (98-107) mmol/L Carbon Dioxide (21-32) mmol/L Anion Gap (3-11) BUN (6-23) mg/dl Creatinine (0.6-1.4) mg/dl Est Cr Clr Drug Dosing ml/min Est GFR ( Amer) ml/min Est GFR (Non-Af Amer) ml/min BUN/Creatinine Ratio (10-20) Glucose (70-99(Fasting)) mg/dl POC Glucose (70-99) mg/dl Calcium (8.6-10.3) mg/dl Magnesium (1.7-2.4) mg/dl Total Bilirubin (0.2-1.0) mg/dl AST (13-39) U/L ALT (7-52) U/L Alkaline Phosphatase (34-104) U/L Troponin I High Sens (0-20) pg/ml Total Protein (6.0-8.3) gm/dl Albumin (3.4-5.0) gm/dl Globulin (2.5-4.0) gm/dl Albumin/Globulin Ratio (0.9-2) Lipase (11-82) U/L Urine Color Urine Appearance (Clear) Urine pH (4.5-7.5) Ur Specific [place] (1.000-1.030) Urine Protein (Negative) Urine Glucose (UA) (Negative) Urine Ketones (Negative) Urine Blood (Negative) Urine Nitrite (Negative) Urine Bilirubin (Negative) Urine Urobilinogen (Negative) Ur Leukocyte Esterase (Negative) Ethyl Alcohol mg/dL 247.4 H (<10.0) mg/dl SARS-CoV-2, RNA, NAAT NEGATIVE (NEGATIVE) 11/16/22 11/16/22 11/17/22 Range/Units 22:38 22:45 00:34 WBC (4.8-10.8) K/ul RBC (4.70-6.10) M/uL Hgb (14.0-18.0) g/dl Hct (42.0-52.0) % MCV (80.0-100.0) fL MCH (25.0-34.0) pg MCHC (32.0-36.0) g/dL RDW Std Deviation (36.4-46.3) fL RDW Coeff of Gucci (11.5-14.5) % Plt Count (130-400) K/uL MPV (9.4-12.4) fL Immature Gran % (Auto) % Neut % (Auto) % Lymph % (Auto) % [place] % (Auto) % Eos % (Auto) % Baso % (Auto) % Neut # (Auto) (1.40-6.50) K/uL Lymph # (Auto) (1.2-3.4) K/uL [place] # (Auto) (0.11-0.59) K/uL Eos # (Auto) (0-0.50) K/uL Baso # (Auto) (0-0.2) K/uL Immature Gran # (Auto) (0.01-0.20) K/uL ABG pH (7.35-7.45) ABG pCO2 (35-46) mmHg ABG pO2 (80-95) mmHg ABG HCO3 (19-24) mmol/L ABG O2 Saturation (90-95) % ABG Base Excess (-9-1.8) mEq/L Sodium 131 L (136-145) mmol/L Potassium 4.3 (3.5-5.1) mmol/L Chloride 99 (98-107) mmol/L Carbon Dioxide 18 L (21-32) mmol/L Anion Gap 14 H (3-11) BUN 8 (6-23) mg/dl Creatinine 0.79 (0.6-1.4) mg/dl Est Cr Clr Drug Dosing 124.1 ml/min Est GFR ( Amer) 122.2 ml/min Est GFR (Non-Af Amer) 105.4 ml/min BUN/Creatinine Ratio 10.1 (10-20) Glucose 462 H* (70-99(Fasting)) mg/dl POC Glucose 363 H* (70-99) mg/dl Calcium 9.4 (8.6-10.3) mg/dl Magnesium 1.8 (1.7-2.4) mg/dl Total Bilirubin 0.5 (0.2-1.0) mg/dl AST 21 (13-39) U/L ALT 28 (7-52) U/L Alkaline Phosphatase 85 (34-104) U/L Troponin I High Sens 3.0 (0-20) pg/ml Total Protein 7.3 (6.0-8.3) gm/dl Albumin 3.9 (3.4-5.0) gm/dl Globulin 3.4 (2.5-4.0) gm/dl Albumin/Globulin Ratio 1.1 (0.9-2) Lipase 27 (11-82) U/L Urine Color Yellow Urine Appearance Clear (Clear) Urine pH 5.0 (4.5-7.5) Ur Specific [place] 1.009 (1.000-1.030) Urine Protein Negative (Negative) Urine Glucose (UA) 3+ H (Negative) Urine Ketones Negative (Negative) Urine Blood Negative (Negative) Urine Nitrite Negative (Negative) Urine Bilirubin Negative (Negative) Urine Urobilinogen Negative (Negative) Ur Leukocyte Esterase Negative (Negative) Ethyl Alcohol mg/dL (<10.0) mg/dl SARS-CoV-2, RNA, NAAT (NEGATIVE) 11/17/22 Range/Units 00:50 WBC (4.8-10.8) K/ul RBC (4.70-6.10) M/uL Hgb (14.0-18.0) g/dl Hct (42.0-52.0) % MCV (80.0-100.0) fL MCH (25.0-34.0) pg MCHC (32.0-36.0) g/dL RDW Std Deviation (36.4-46.3) fL RDW Coeff of Gucci (11.5-14.5) % Plt Count (130-400) K/uL MPV (9.4-12.4) fL Immature Gran % (Auto) % Neut % (Auto) % Lymph % (Auto) % [place] % (Auto) % Eos % (Auto) % Baso % (Auto) % Neut # (Auto) (1.40-6.50) K/uL Lymph # (Auto) (1.2-3.4) K/uL [place] # (Auto) (0.11-0.59) K/uL Eos # (Auto) (0-0.50) K/uL Baso # (Auto) (0-0.2) K/uL Immature Gran # (Auto) (0.01-0.20) K/uL ABG pH 7.37 (7.35-7.45) ABG pCO2 36 (35-46) mmHg ABG pO2 84 (80-95) mmHg ABG HCO3 21 (19-24) mmol/L ABG O2 Saturation 97.7 H (90-95) % ABG Base Excess -3.9 (-9-1.8) mEq/L Sodium (136-145) mmol/L Potassium (3.5-5.1) mmol/L Chloride (98-107) mmol/L Carbon Dioxide (21-32) mmol/L Anion Gap (3-11) BUN (6-23) mg/dl Creatinine (0.6-1.4) mg/dl Est Cr Clr Drug Dosing ml/min Est GFR ( Amer) ml/min Est GFR (Non-Af Amer) ml/min BUN/Creatinine Ratio (10-20) Glucose (70-99(Fasting)) mg/dl POC Glucose (70-99) mg/dl Calcium (8.6-10.3) mg/dl Magnesium (1.7-2.4) mg/dl Total Bilirubin (0.2-1.0) mg/dl AST (13-39) U/L ALT (7-52) U/L Alkaline Phosphatase (34-104) U/L Troponin I High Sens (0-20) pg/ml Total Protein (6.0-8.3) gm/dl Albumin (3.4-5.0) gm/dl Globulin (2.5-4.0) gm/dl Albumin/Globulin Ratio (0.9-2) Lipase (11-82) U/L Urine Color Urine Appearance (Clear) Urine pH (4.5-7.5) Ur Specific [place] (1.000-1.030) Urine Protein (Negative) Urine Glucose (UA) (Negative) Urine Ketones (Negative) Urine Blood (Negative) Urine Nitrite (Negative) Urine Bilirubin (Negative) Urine Urobilinogen (Negative) Ur Leukocyte Esterase (Negative) Ethyl Alcohol mg/dL (<10.0) mg/dl SARS-CoV-2, RNA, NAAT (NEGATIVE) Imaging Data Attestation: I personally reviewed and interpreted this imaging study as follows: Radiologist's Impression: Abdomen/Pelvis CT 11/16/22 22:31 Exam(s): CT ABDOMEN + PELVIS With Contrast IV Amt: 83 ML OPTIRAY 350 EXAM: CT Abdomen and Pelvis With Intravenous Contrast CLINICAL HISTORY: Reason for exam: etoh abuse, pancreatitis, severe pain. TECHNIQUE: Axial computed tomography images of the abdomen and pelvis with intravenous contrast. CTDI is 6.86 mGy and DLP is 378.16 mGy-cm. Automated exposure control was utilized for the study. A dose lowering technique was utilized adhering to the principles of ALARA. CONTRAST: Patient received 83 ML OPTIRAY 350 of IV contrast COMPARISON: Dated 11/09/22 FINDINGS: Lung bases: Unremarkable. No mass. No consolidation. ABDOMEN: Liver: Unremarkable. No mass. Gallbladder and bile ducts: Status post cholecystectomy. No ductal dilation. Pancreas: Sequela of chronic pancreatitis including dense calcification of the pancreatic head and neck. Stable distention of the main pancreatic duct. Spleen: Unremarkable. No splenomegaly. Adrenals: Unremarkable. No mass. Kidneys and ureters: Unremarkable. No solid mass. No hydronephrosis. Stomach and bowel: Unremarkable. No obstruction. No mucosal thickening. PELVIS: Appendix: No findings to suggest acute appendicitis. Bladder: Unremarkable. No mass. Reproductive: Unremarkable as visualized. ABDOMEN and PELVIS: Intraperitoneal space: Unremarkable. No free air. No significant fluid collection. Bones/joints: Postsurgical changes of the lower lumbar spine. No acute fracture. No dislocation. Soft tissues: Unremarkable. Vasculature: Unremarkable. No abdominal aortic aneurysm. Lymph nodes: Unremarkable. No enlarged lymph nodes. IMPRESSION: Stable sequela of chronic pancreatitis without acute inflammatory changes on this study. Electronically signed by: Jd Jo MD 11/17/22 00:30 AM MDM Narrative Prior records/ancillary studies reviewed. Triage Nursing notes reviewed. Additional history obtained from EMS. The patient's history was concerning for abdominal pain. Differential diagnosis: Etiologies such as appendicitis, diverticulitis, PUD, biliary pathology, UTI, pancreatitis, obstruction, mesenteric ischemia, aortic pathology, infections, inflammatory bowel disease, renal colic, as well as others were entertained. Physical examination findings: As above. ER treatment provided: An order was placed for continuous cardiac monitoring. The monitor shows a rate of 60-1 50 with a sinus rhythm per my Independent interpretation. IV fluids Pepcid droperidol and Benadryl ordered On reassessment the patient felt better. Diagnostics interpreted by me: ECG: Ordered for upper abdominal pain EKG: Normal sinus, normal intervals, no acute ST-T wave changes. Impression normal sinus rhythm independent interpreted by myself I think arrhythmia is unlikely. EKG shows normal sinus rhythm with no interval abnormalities such as QT prolongation or WPW. There are no findings to suggest Brugada syndrome. Cardiac monitoring in the emergency department reveals no tachycardic or bradycardic dysrhythmia. Hypertrophic cardiomyopathy was cons idered but there are no clear historical elements pointing toward this. EKG is not suggestive. The QRS voltage is not extremely large and there are no suggestive Q waves. The labs Independently Interpreted by myself revealed elevated alcohol and most likely the gap is from this. Hyperglycemia without DKA when reviewing the ABG. pH is normal. Imaging studies: CT abdomen pelvis was reviewed by myself with chronic findings and the report was reviewed as above and read by radiology. Consultation: A consultation was placed with the hospitalist. The case was discussed and diagnostics were reviewed. The patient was evaluated in the ER for further treatment. Exam and history seem consistent with recurrent alcoholic pancreatitis who is intoxicated and has poorly controlled diabetes. Patient is requesting readmission. Hospitalist was consulted and the case was discussed. Patient will be admitted. Labs and diagnostics were independent interpreted by myself. ABG was reviewed. Normal pH. He was hydrated as above. He was readmitted to the medical service. By the evaluation outlined above emergent etiologies such as appendicitis, diverticulitis, PUD, biliary pathology, UTI, obstruction, mesenteric ischemia, aortic pathology, infections, inflammatory bowel disease, renal colic, as well as others were deemed relatively unlikely. The pt informed about the findings as listed above. All questions were answered and pleased with the treatment. The chart was completed utilizing [employer] Speech voice recognition software. Grammatical errors, random word insertions, pronoun errors, and incomplete sentences are an occassional consequence of this system due to software limitations, ambient noise, and hardware issues. Any formal questions or concerns about the content, text, or information contained within the body of this dictation should be directly addressed to the physician first assistant manager for clarification. Impression & Plan Alcohol abuse, Acute alcoholic pancreatitis, Intractable abdominal pain, Acute hyperglycemia Discharge Plan Visit Data Chief Complaint: Abdominal Pain Stated Complaint: ETOH, R Sided Upper Quadrant Pain, Pancreatitis ED Provider: Gerardo Braga ED Midlevel Provider: Maryan Jo Discharge Problem: Alcohol abuse, Acute alcoholic pancreatitis, Intractable abdominal pain, Acute hyperglycemia Patient Disposition: Admitted As Inpatient Condition: Good Forms Stand Alone Forms: My [facility] Prescriptions Prescriptions: No Action paroxetine HCl 20 mg tablet 20 mg PO QAM pantoprazole 40 mg Tablet,Delayed Release (Dr/Ec) 40 mg PO QAM Qty: 30 0RF acetaminophen [Tylenol] 325 mg capsule 650 mg PO BID PRN (Reason: Fever Or Pain) Eliquis 5 mg tablet 5 mg PO DAILY Rx Instructions: It is ordered bid glipizide 5 mg tablet extended release 24hr 5 mg PO DAILYBB hydroxyzine pamoate 25 mg capsule 25 mg PO BID PRN (Reason: Anxiety) Referrals Referrals: hDiraj Myers DO [Primary Care Provider] -
[2022-11-16 23:02] LABS: Appearance Urine Clear (Clear); Bilirubin Urine Negative (Negative); Blood Urine Negative (Negative); Color Urine Yellow; Glucose Urine UA 3+ (Negative); Ketones Urine Negative (Negative); Leukocyte Esterase Urine Negative (Negative); Nitrite Urine Negative (Negative); Protein Urine Negative (Negative); Specific Gravity Urine 1.009 (1.000-1.030); Urobilinogen Urine Negative (Negative)
[2022-11-16 23:04] LABS: Basophils # (auto) 0.04 K/uL (0-0.2); Basophils % (auto) 0.9 %; Eosinophils # (auto) 0.26 K/uL (0-0.50); Eosinophils % (auto) 5.6 %; Hematocrit (blood only) 41.9 % (42.0-52.0); Hemoglobin 15.6 g/dl (14.0-18.0); Immature Granulocytes # (auto) 0.01 K/uL (0.01-0.20); Immature Granulocytes % (auto) 0.2 %; Lymphocytes # (auto) 1.53 K/uL (1.2-3.4); Lymphocytes % (auto) 32.8 %; Mean Corpuscular Hemoglobin 33.5 pg (25.0-34.0); Mean Corpuscular Hgb Conc 37.2 g/dL (32.0-36.0); Mean Corpuscular Volume 90.1 fL (80.0-100.0); Mean Platelet Volume 9.2 fL (9.4-12.4); Monocytes # (auto) 0.44 K/uL (0.11-0.59); Monocytes % (auto) 9.4 %; Neutrophils # (auto) 2.38 K/uL (1.40-6.50); Neutrophils % (auto) 51.1 %; Platelet Count 187 K/uL (130-400); RDW Coefficient of Variation 11.4 % (11.5-14.5); RDW Standard Deviation 37.4 fL (36.4-46.3); Red Blood Count 4.65 M/uL (4.70-6.10); White Blood Count 4.66 K/ul (4.8-10.8)
[2022-11-16 23:47] LABS: Albumin Level 3.9 gm/dl (3.4-5.0); Bilirubin,Total 0.5 mg/dl (0.2-1.0); Calcium 9.4 mg/dl (8.6-10.3); Magnesium 1.8 mg/dl (1.7-2.4); Potassium 4.3 mmol/L (3.5-5.1)
[2022-11-16 23:57] LABS: Albumin Globulin Ratio 1.1 (0.9-2); BUN Creatinine Ratio 10.1 (10-20); Creatinine Clr Calc Pharmacy 124.1 ml/min; Est GFR (African American) 122.2 ml/min; Est GFR (Non-African American) 105.4 ml/min; Globulin 3.4 gm/dl (2.5-4.0); Total Protein 7.3 gm/dl (6.0-8.3)
[2022-11-17] MEDS ORDERED: SODIUM CHLORIDE 0.9% 1000ML 1,000 ML IV ONE (00:04)
[2022-11-17] MEDS ORDERED: OPTIRAY 350 100ml IV ONE (00:16)
--- NOTE | 2022-11-17 00:31 | CT Scan Report ---
Exam(s): CT ABDOMEN + PELVIS With Contrast IV Amt: 83 ML OPTIRAY 350 EXAM: CT Abdomen and Pelvis With Intravenous Contrast CLINICAL HISTORY: Reason for exam: etoh abuse, pancreatitis, severe pain. TECHNIQUE: Axial computed tomography images of the abdomen and pelvis with intravenous contrast. CTDI is 6.86 mGy and DLP is 378.16 mGy-cm. Automated exposure control was utilized for the study. A dose lowering technique was utilized adhering to the principles of ALARA. CONTRAST: Patient received 83 ML OPTIRAY 350 of IV contrast COMPARISON: Dated 11/09/22 FINDINGS: Lung bases: Unremarkable. No mass. No consolidation. ABDOMEN: Liver: Unremarkable. No mass. Gallbladder and bile ducts: Status post cholecystectomy. No ductal dilation. Pancreas: Sequela of chronic pancreatitis including dense calcification of the pancreatic head and neck. Stable distention of the main pancreatic duct. Spleen: Unremarkable. No splenomegaly. Adrenals: Unremarkable. No mass. Kidneys and ureters: Unremarkable. No solid mass. No hydronephrosis. Stomach and bowel: Unremarkable. No obstruction. No mucosal thickening. PELVIS: Appendix: No findings to suggest acute appendicitis. Bladder: Unremarkable. No mass. Reproductive: Unremarkable as visualized. ABDOMEN and PELVIS: Intraperitoneal space: Unremarkable. No free air. No significant fluid collection. Bones/joints: Postsurgical changes of the lower lumbar spine. No acute fracture. No dislocation. Soft tissues: Unremarkable. Vasculature: Unremarkable. No abdominal aortic aneurysm. Lymph nodes: Unremarkable. No enlarged lymph nodes. IMPRESSION: Stable sequela of chronic pancreatitis without acute inflammatory changes on this study. Electronically signed by: Jd Jo MD 11/17/22 00:30 AM
[2022-11-17 00:58] LABS: Base Excess ABG -3.9 mEq/L (-9-1.8); HCO3 ABG 21 mmol/L (19-24); Oxygen Saturation ABG 97.7 % (90-95); PCO2 ABG 36 mmHg (35-46); PO2 ABG 84 mmHg (80-95); pH ABG 7.37 (7.35-7.45)
[2022-11-17] MEDS ORDERED: KETOROLAC TROMETHAMINE 15 MG/ML VIAL IV STA (00:58)
[2022-11-17] MEDS ORDERED: NovoLIN-R INSULIN PER UNIT CHARGE IV STA (01:12)
[2022-11-17 01:15] LABS: Allen Test Pos (Pos)
[2022-11-17] MEDS ORDERED: GLUCOSE 40% GEL 15 GM TUBE PO PRN (02:49)
[2022-11-17] MEDS ORDERED: Ativan IV Alcohol Withdrawal--Active Protocol IV PRN (02:49)
[2022-11-17] MEDS ORDERED: GLUCAGON FOR INJ 1 MG VIAL SQ PRN (02:49)
[2022-11-17] MEDS ORDERED: GABAPENTIN 600 MG TAB PO ONE (02:49)
[2022-11-17] MEDS ORDERED: hydrOXYzine HCl 25 MG TAB PO PRN (02:49)
[2022-11-17] MEDS ORDERED: CARBOHYDRATES FOR HYPOGLYCEMIA PO PRN (02:49)
[2022-11-17] MEDS ORDERED: THIAMINE HCL 100 MG, FOLIC ACID 1 MG in SODIUM CHLORIDE 0.9% 1000ML 1,000 ML IV SCH (02:49)
[2022-11-17] MEDS ORDERED: CEROVITE ADV FORMULA TAB PO STA (02:49)
[2022-11-17] MEDS ORDERED: LORazepam 2 MG/1 ML VIAL IV PRN ×2 (02:49)
[2022-11-17] MEDS ORDERED: GLUCOSE 10 TAB/TUBE PO PRN (02:49)
[2022-11-17] MEDS ORDERED: DEXTROSE 50% 50 ML SYRINGE IV PRN (02:49)
[2022-11-17] MEDS ORDERED: ACETAMINOPHEN 325 MG TAB PO PRN (02:49)
[2022-11-17] MEDS ORDERED: GABAPENTIN 1200MG ALCOHOL WITHDRAWAL LOAD PO STA (02:49)
--- NOTE | 2022-11-17 05:10 | History and Physical Report ---
DATE OF ADMISSION: 11/17/2022. CHIEF COMPLAINT: Abdominal pain. HISTORY OF PRESENT ILLNESS: This is a 47-year-old male with past medical history significant for ADHD, mood disorder, as per records history of diabetes, on oral medications, GERD, Renae's esophagus, history of multiple recurrent admissions for alcoholism and pancreatitis and abdominal pain history of PE, history of recurrent DVT, currently on Eliquis, chronic pain, history of narcotic abuse as per records, terminated medical agreement, , presents with abdominal pain. The patient was here last week with abdominal pain, was discharged the next day. He states he is still drinking 6-8 beers daily and having a lot of abdominal pain, 7/8 in severity, radiating to his back. Also some nausea and vomiting. Denies any blood in the vomitus. Normal bowel movements, no blood in the stools. Normal bladder movements. He says he has some child pain earlier that got resolved, currently no chest pain, no shortness of breath, no cough, no fevers, no headache, no neck pain, no blurred visions, no earache, no runny nose, no sore throat. Hemodynamically stable. ALLERGIES: No known drug allergies. PAST MEDICAL HISTORY: As mentioned above. PAST SURGICAL HISTORY: History of EGDs, EGD with endoscopic ultrasound, lumbar fusion surgery, appendectomy, and laparoscopic cholecystectomy. FAMILY HISTORY: Significant for father had alcohol abuse. SOCIAL HISTORY: Chews tobacco daily. Currently drinking 6-8 beers daily. No drug use. REVIEW OF SYSTEMS: As per HPI. Rest of the review of systems is negative. MEDICATIONS: The patient is on Tylenol 650 mg p.o. q.i.d. p.r.n., Eliquis 5 mg p.o. b.i.d., glipizide 5 mg p.o. daily, hydralazine 25 mg p.o. b.i.d. p.r.n., Protonix 40 mg p.o. daily, paroxetine 20 mg p.o. daily. PHYSICAL EXAMINATION: GENERAL: The patient is alert and oriented, not in acute distress. VITAL SIGNS: Temperature 36.8, pulse 100, respiratory rate 16, blood pressure 114/75, oxygen 98% on room air. HEENT: Pupils equal, round and reactive to light. Oral mucosa moist. NECK: No JVD, no neck masses. CARDIOVASCULAR: S1 and S2 heard. Regular rate and rhythm. No murmur, no gallop. RESPIRATORY SYSTEM: Normal AP diameter. No accessory muscle use. No wheezing or crackles. ABDOMEN: Soft, bowel sounds present. Some tenderness. Mild guarding, no rigidity, no distention. CENTRAL NERVOUS SYSTEM: Cranial nerves II-XII grossly intact, nonfocal. EXTREMITIES: No edema, no erythema. LABORATORY DATA: WBC 4.6, hemoglobin 15.6, hematocrit 41.9, platelets 187. ABG, pH 7.37, pCO2 of 36, pO2 of 84, bicarbonate 21, oxygen 97%. Sodium 131, potassium 4.3, chloride 99, CO2 of 18, anion gap 14, BUN 8, creatinine 0.79, serum glucose 462, calcium 9.4, magnesium 1.8, total bilirubin 0.5, AST 21, ALT 28, alkaline phosphatase 85. Troponin I high sensitivity 3, lipase 27. Urinalysis, +3 glucose. Ethyl alcohol 247. SARS-CoV-2 rapid test negative. IMAGING DATA: CT of abdomen and pelvis with IV contrast, stable sequelae of chronic pancreatitis without acute inflammatory changes on the study. ASSESSMENT AND PLAN: This is a 47-year-old male with ongoing alcoholism and history of chronic pancreatitis, presents with abdominal pain. 1. Abdominal pain: CT of abdomen and pelvis not consistent with acute pancreatitis, shows chronic pancreatitis. Lipase is okay. Possibly gastritis with ongoing alcoholism. Will continue his Protonix. Placed on IV Pepcid 20 mg b.i.d., IV morphine p.r.n., IV fluids. Will be placed on clear liquid diet. Monitor in the hospital. If worsening, may consider consulting GI. 2. Alcoholism: Will place him on alcohol withdrawal protocol with gabapentin and IV Ativan p.r.n. Will give banana bag, IV thiamine, IV folic acid and closely monitor. 3. DM and hyperglycemia: Gave a dose of iv insulin. ABG looks okay. Does not seem to be in DKA. Will follow the repeat labs. Continue with Lantus insulin sliding scale for now. Monitor his blood sugars. 4. Hyponatremia: Most likely pseudohyponatremia with sodium of 131. Will follow the repeat labs in the a.m. 5. History of deep venous thrombosis and pulmonary embolism: Continue his Eliquis. 6. History of mood disorder: Continue paroxetine. 7. Gastroesophageal reflux disease: PPI and Pepcid 8. Deep venous thrombosis prophylaxis: On Eliquis. DISPOSITION: Closely monitor in the medical floor. Expect to discharge home and follow with the family doctor. Job ID: [id number] [facility] H[facility]PITALRemedios
[2022-11-17] MEDS: SODIUM CHLORIDE 0.9% 1000ML 1,000 ML IV SCH ×3 (05:48→21:17)
[2022-11-17] MEDS: FOLIC ACID 1 MG in SYRINGE 9.8 ML IV SCH (07:59)
[2022-11-17] MEDS: PANTOprazole 40 MG TAB PO SCH (07:59)
[2022-11-17] MEDS: THIAMINE HCL 100 MG in SYRINGE 9 ML IV SCH (07:59)
[2022-11-17] MEDS: APIXABAN 5 MG TABLET PO SCH ×2 (07:59→19:30)
[2022-11-17] MEDS: PARoxetine HCL 20 MG TAB PO SCH (07:59)
[2022-11-17] MEDS: FAMOTIDINE 20 MG in SYRINGE 3 ML IV SCH ×2 (07:59→19:29)
[2022-11-17 08:05] LABS: Hematocrit (blood only) 36.2 % (42.0-52.0); Hemoglobin 13.3 g/dl (14.0-18.0); Mean Corpuscular Hemoglobin 33.2 pg (25.0-34.0); Mean Corpuscular Hgb Conc 36.7 g/dL (32.0-36.0); Mean Corpuscular Volume 90.3 fL (80.0-100.0); Platelet Count 155 K/uL (130-400); RDW Coefficient of Variation 11.7 % (11.5-14.5); RDW Standard Deviation 38.5 fL (36.4-46.3); Red Blood Count 4.01 M/uL (4.70-6.10); White Blood Count 3.15 K/ul (4.8-10.8)
[2022-11-17] MEDS: MoRPHine SULFATE 4 MG/ML 1 ML CARP\\VIAL IV PRN ×4 (08:05→21:21)
[2022-11-17 08:22] LABS: BUN Creatinine Ratio 10.6 (10-20); Creatinine Clr Calc Pharmacy 148.6 ml/min; Est GFR (African American) 131.6 ml/min; Est GFR (Non-African American) 113.5 ml/min; Magnesium 1.8 mg/dl (1.7-2.4); Potassium 3.9 mmol/L (3.5-5.1)
[2022-11-17] MEDS: INSULIN ASPART PER UNIT CHARGE SC SCH ×4 (08:49→20:50)
[2022-11-17] MEDS: LANTUS PER UNIT CHARGE SQ SCH (08:50)
[2022-11-17] MEDS: GABAPENTIN 600 MG TAB PO SCH ×3 (08:55→23:42)
[2022-11-17 09:08] LABS: Basophils # (auto) 0.03 K/uL (0-0.2); Eosinophils # (auto) 0.32 K/uL (0-0.50); Eosinophils % (auto) 10.2 %; Lymphocytes # (auto) 1.48 K/uL (1.2-3.4); Monocytes # (auto) 0.41 K/uL (0.11-0.59); Neutrophils # (auto) 0.91 K/uL (1.40-6.50); Neutrophils % (auto) 28.8 %
[2022-11-17 09:29] LABS: Estimated Average Glucose 255 mg/dl; Hemoglobin A1C 10.5 % (4.5-5.6)
[2022-11-17] MEDS: oxyCODONE HCL IR 5 MG TAB (IMMEDIATE RELEASE) PO PRN ×2 (10:44→19:27)
--- NOTE | 2022-11-17 14:52 | Communication Note ---
Date of Service: November 17, 2022 Patient admitted overnight for chronic pancreatitis exacerbation He reports significant abdominal pain in epigastric region radiating to the back. On examination Alert oriented x3; in significant pain Chestbilateral clear vesicular breath sound CVSS1-S2 no murmur Abdomentenderness present in epigastric region Neurogrossly intact Assessment/plan Chronic pancreatitis -Due to alcohol use disorder -Continue pain control, fat-free diet Alcohol use disorder -On gabapentin taper -Ativan as needed -Thiamine, folic acid
[2022-11-17] MEDS: ONDANSETRON INJ 2 MG/ML 2 ML VIAL IV PRN (16:26)
[2022-11-18] MEDS: MoRPHine SULFATE 4 MG/ML 1 ML CARP\\VIAL IV PRN ×6 (01:24→21:40)
[2022-11-18] MEDS: oxyCODONE HCL IR 5 MG TAB (IMMEDIATE RELEASE) PO PRN ×4 (03:32→19:31)
[2022-11-18] MEDS: ONDANSETRON INJ 2 MG/ML 2 ML VIAL IV PRN ×2 (03:34→21:43)
[2022-11-18] MEDS: SODIUM CHLORIDE 0.9% 1000ML 1,000 ML IV SCH ×3 (05:21→21:40)
[2022-11-18] MEDS: PARoxetine HCL 20 MG TAB PO SCH (09:09)
[2022-11-18] MEDS: APIXABAN 5 MG TABLET PO SCH ×2 (09:09→19:28)
[2022-11-18] MEDS: GABAPENTIN 600 MG TAB PO SCH ×2 (09:09→17:06)
[2022-11-18] MEDS: THIAMINE HCL 100 MG in SYRINGE 9 ML IV SCH (09:09)
[2022-11-18] MEDS: FOLIC ACID 1 MG in SYRINGE 9.8 ML IV SCH (09:10)
[2022-11-18] MEDS: PANTOprazole 40 MG TAB PO SCH (09:10)
[2022-11-18 09:18] LABS: Basophils # (auto) 0.06 K/uL (0-0.2); Basophils % (auto) 1.4 %; Eosinophils # (auto) 0.32 K/uL (0-0.50); Eosinophils % (auto) 7.4 %; Hematocrit (blood only) 38.5 % (42.0-52.0); Hemoglobin 13.9 g/dl (14.0-18.0); Immature Granulocytes # (auto) 0.01 K/uL (0.01-0.20); Immature Granulocytes % (auto) 0.2 %; Lymphocytes # (auto) 1.35 K/uL (1.2-3.4); Lymphocytes % (auto) 31.3 %; Mean Corpuscular Hemoglobin 33.2 pg (25.0-34.0); Mean Corpuscular Hgb Conc 36.1 g/dL (32.0-36.0); Mean Corpuscular Volume 91.9 fL (80.0-100.0); Mean Platelet Volume 9.6 fL (9.4-12.4); Monocytes # (auto) 0.43 K/uL (0.11-0.59); Neutrophils # (auto) 2.14 K/uL (1.40-6.50); Neutrophils % (auto) 49.7 %; Platelet Count 156 K/uL (130-400); RDW Coefficient of Variation 11.9 % (11.5-14.5); Red Blood Count 4.19 M/uL (4.70-6.10); White Blood Count 4.31 K/ul (4.8-10.8)
[2022-11-18] MEDS: INSULIN ASPART PER UNIT CHARGE SC SCH ×4 (09:22→21:03)
[2022-11-18] MEDS: LANTUS PER UNIT CHARGE SQ SCH (09:23)
[2022-11-18] MEDS: FAMOTIDINE 20 MG in SYRINGE 3 ML IV SCH ×2 (09:24→19:29)
[2022-11-18 09:33] LABS: BUN Creatinine Ratio 6.9 (10-20); Calcium 8.7 mg/dl (8.6-10.3); Creatinine Clr Calc Pharmacy 136.2 ml/min; Est GFR (Non-African American) 109.5 ml/min; Potassium 3.9 mmol/L (3.5-5.1)
--- NOTE | 2022-11-18 11:23 | Gastrointestinal Consultation ---
Date of Consultation November 18, 2022 Assessment & Plan (1) Chronic pancreatitis: Plan 1. IV LR 200/h 2. I disagree with using narcotics while eating a regular consistency diet. I explained to the patient that this may mask pancreatic pain. I would prefer he stay with clear liquids until he no longer needs narcotics then advance to a regular consistency low-fat diet. 3. Mr. Zeng does have chronic pancreatitis and we do advise him to abstain from alcohol and tobacco. 4. Regarding need for narcotics, please consider pain management consult. He has worked with them in the past (years ago). 5. We will arrange outpatient EUS for approximately 2 months. 6. No indication for GI procedures during this hospitalization. 7. GI sign off. Supervising Physician Co-Signing Physician Notes History of ethanol use likely as cause for chronic pancreatitis. Agree with PE as documented. Outpatient EUS will be arranged. Agree with plan of care as documented. History of Present Illness Reason for Consultation: Chronic Pancreatitis Management; severe abd pain Requesting Physician: Dr. Quezada Attending Physician: Elie Quezada MD History of Present Illness Mr. Raffi Zeng is a 47 yr old male pt of Dr. Dhiraj Myers w a hx of DM-2, Renae's/GERD, PE/DVT (most recent new clot approx 3 m ago) on Eliquis, chronic pancreatitis who presented to the ED yesterday for abdominal pain. Pancreatitis is thought secondary to continued alcohol intake as well as continuing to chew tobacco. He was most recently discharged from this facility for the same issue approx one week ago. Plan is to get an outpatient EUS approximately 6 weeks after improvement in his symptoms. He tells me that he was called to get this arranged, that he was told to call his primary doctor for instructions on holding the Eliquis, that he contacted that office but they have not gotten back to them yet. Thus the EUS is not yet scheduled but at this point, we would need to move that out as he is had another episode of bad pain, and we want to do this after the acute inflammation is resolved Regarding this hospitalization, he tells me that RUQ pain worsened and radiated to the back yesterday thus he presented to the ED. On arrival, CTAP with IV with chronic pancreatitis, calcifications of the head and neck, chronic main pancreatic duct dilation, essentially unchanged from last week. LFTs and lipase normal. Allergies Allergy/AdvReac Type Severity Reaction Status Date / Time No Known Allergies Allergy Verified 11/16/22 22:50 Home Medications Medication Instructions Recorded Confirmed Type paroxetine HCl 20 mg tablet 20 mg PO QAM 12/20/19 11/16/22 History pantoprazole 40 mg tablet,delayed 40 mg PO QAM #30 tabs 03/01/21 11/16/22 Rx release acetaminophen 325 mg capsule 650 mg PO BID PRN Fever Or Pain 08/17/22 11/16/22 History (Tylenol) apixaban 5 mg tablet (Eliquis) 5 mg PO BID 08/17/22 11/17/22 History glipizide 5 mg tablet, extended 5 mg PO DAILYBB 10/20/22 11/16/22 History release 24 hr hydroxyzine pamoate 25 mg capsule 25 mg PO BID PRN Anxiety 10/20/22 11/16/22 History Patient History Medical History (Updated 11/17/22 @ 01:01 by Maryan Jo PA-C) Abdominal pain Abdominal pain Abdominal pain, acute, epigastric Acute hyperglycemia Alcohol abuse (Unknown) Alcohol abuse Alcohol abuse Alcohol withdrawal Alcoholic ketosis Renae's esophagus (Unknown) "per EGD 11/23/09 " On 05/31/11 09:06 Martinez Jose wrote "per EGD 11/23/09 " Chest pain COVID-19 Depression Depression DM type 2 (diabetes mellitus, type 2) Encounter for alcohol abuse counseling and surveillance Encounter for pre-operative examination Encounter for tobacco use cessation counseling H/O acute pancreatitis "recurrent" History of substance abuse Hyperglycemia Intentional drug overdose Lumbar degenerative disc disease Mood disorder Mood disorder Nausea & vomiting Neuropathy Pancreatic duct stones Pancreatitis Panic disorder Pulmonary embolism Retrosternal chest pain Suicidal ideation Suicidal ideation Suicide attempt Surgical History H/O esophagogastroduodenoscopy "EGD 11/23/2009- mild gastritis, suspicious for gastroparesis, Z-line irregular EUS 02/04/2010- mild chronic pancreatitis, pronounced cholesterolosis of gallbladder, no biliary dilation or stones, probable gastroparesis EGD 10/31/2014- gastritis" S/P lumbar fusion L4-S1 2014 Family History Father Alcohol abuse Social History Smoking Status: Never smoker Tobacco Type: Smokeless Tobacco (Dip or Chew) Second Hand Exposure: No; Do You Dip or Chew Tobacco: Yes; Hx Alcohol Use: Yes Alcohol type: beer Hx Substance Use: No Preferred Language: Uzbek Communication Ability: Effective 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 Beliefs That Will Affect Care: None marital status: Current Living Situation: Parent Current Living Situation Comment: from home with mother How many Children do You have: 3 Other Information That Helps Us Care for You: No Feels Safe at Home: Yes Safety Concerns: Feels Safe At This Time Assistive Devices: None Review of Systems Review of Systems: ROS: Gen: Denies weakness, fevers, weight loss Eyes: No eye redness, or pain, no recent vision changes Resp: No SOB, no cough Cardio: No palpitations/irregular beats, no chest pain GI: As per HPI otherwise : Denies pain on urination Skin: No jaundice, itching or new rashes Hem:Denies bleeding/bruising. Physical Exam Constitutional: well developed and cooperative Eyes: PERRL, conjunctivae normal, anicteric sclerae Respiratory: normal respiratory effort, lungs clear to auscultation Cardiovascular: RRR, no murmur, no edema Gastrointestinal (Abdomen): Inspection/Auscultation: abdomen normal to inspection; abdomen not distended Percussion/Palpation: + abdomen tender (Moderate right upper quadrant tenderness. No signs of acute abdomen.) and abdomen soft; no guarding and abdomen not rigid Skin: no rashes, warm and dry normal turgor Neurologic: PERRL, EOMI, accommodation nl, no face palsy, no dysarthria Psychiatric: A+Ox3, euthymic affect Lymphatic: no cervical or axillary lymphadenopathy Results & Data Vital Signs (Past 12 Hours) Vital Signs Temp Pulse Resp BP Pulse Ox O2 Del Method 11/18/22 06:56 36.6 C 75 18 118/80 98 Room Air 11/17/22 23:27 36.8 C 80 20 120/75 99 Room Air Laboratory Results 4.3, Hb 13.9, HCT 38.5, PLT S156, NA 137, K3.9, CL 106, CO2 26, BUN 5, CR 0.7, glucose 235 Diagnostic Findings CTAP w IV contrast: Stable sequela of chronic pancreatitis without acute inflammatory changes on this study.
[2022-11-18 11:27] LABS: Albumin Level 3.2 gm/dl (3.4-5.0); Bilirubin Direct 0.1 mg/dl (0-0.2); Bilirubin,Total 0.6 mg/dl (0.2-1.0); Total Protein 5.6 gm/dl (6.0-8.3)
[2022-11-18] MEDS: LORazepam 2 MG/1 ML VIAL IV PRN ×2 (12:26→23:19)
--- NOTE | 2022-11-18 14:57 | Hospitalist Progress Note ---
Date of Service November 18, 2022 Assessment & Plan (1) Chronic pancreatitis: Plan: History of alcoholism and multiple episode of acute pancreatitis Presented with severe abdominal pain. CT abdomen pelvis showed stable sequelae of chronic pancreatitis without acute i nflammatory changes. Lipase within normal limits. Continue on IV fluids Pain control with morphine and oxycodone; asked patient to regularly use oxycodone instead of morphine. Discussed with GI; will start on clear liquid diet. Patient to follow-up as outpatient for EUS in 2 months. Pain management consulted as per recommendation by GI. (2) Alcohol intoxication: Plan: Admitting blood alcohol level was 247.4 He is on tapering gabapentin dose. Also on Ativan as needed Monitor for signs of withdrawal (3) DM type 2 (diabetes mellitus, type 2): Plan: Uncontrolled diabetes mellitus with A1c of 10.5 Hold outpatient glipizide Glargine and sliding scale as inpatient. Monitor glucose ACHS Plan chronic conditions: History of deep venous thrombosis and pulmonary embolism: Continue his Eliquis. History of mood disorder: Continue paroxetine. Gastroesophageal reflux disease: PPI and Pepcid Deep venous thrombosis prophylaxis: On Eliquis. Admission and Anticipated Discharge Date Admission Date: November 17, 2022 Subjective Patient seen and examined at bedside. Is lying in the bed comfortably. He reports abdominal pain in the epigastric region. He notes that the pain regimen is helping him with pain control. Pain increases on eating. Review of Systems Review of Systems: All systems reviewed & are unremarkable except as noted in Subjective Physical Exam Physical Exam: Constitutional: WD/WN, vitals as above, NAD, sitting up in bed, pleasant, conversing easily Respiratory: normal respiratory effort, lungs clear to auscultation, no wheeze, rales, rhonchi. Normal insp/exp effort, no accessory muscle use Cardiovascular: RRR, no murmur, no edema Vessels: no JVD or carotid bruit Chest: normal inspection of chest Abdomen: Tenderness present in epigastric region. Musculoskeletal: no cyanosis or clubbing, extremities motor strength 5/5 Skin: no rashes, warm and dry normal turgor Neurologic: PERRL, EOMI, accommodation nl, no face palsy, no dysarthria CN's II- XI intact bilaterally and moves all extremities Psychiatric: A+Ox3, euthymic affect Lymphatic: no cervical or axillary lymphadenopathy : deferred Results & Data Results & Data Vital Signs (Past 12 Hours) Vital Signs Temp Pulse Resp BP Pulse Ox O2 Del Method 11/18/22 12:14 36.6 C 78 20 125/79 99 Room Air 11/18/22 06:56 36.6 C 75 18 118/80 98 Room Air Laboratory Results Laboratory Results WBC 4.31 K/ul (4.8-10.8) L 11/18/22 08:29 RBC 4.19 M/uL (4.70-6.10) L 11/18/22 08:29 Hgb 13.9 g/dl (14.0-18.0) L 11/18/22 08:29 Hct 38.5 % (42.0-52.0) L 11/18/22 08:29 MCV 91.9 fL (80.0-100.0) 11/18/22 08:29 MCH 33.2 pg (25.0-34.0) 11/18/22 08:29 MCHC 36.1 g/dL (32.0-36.0) H 11/18/22 08:29 RDW Std Deviation 40.0 fL (36.4-46.3) 11/18/22 08:29 RDW Coeff of Gucci 11.9 % (11.5-14.5) 11/18/22 08:29 Plt Count 156 K/uL (130-400) 11/18/22 08:29 MPV 9.6 fL (9.4-12.4) 11/18/22 08:29 Immature Gran % (Auto) 0.2 % 11/18/22 08:29 Neut % (Auto) 49.7 % 11/18/22 08:29 Lymph % (Auto) 31.3 % 11/18/22 08:29 [place] % (Auto) 10.0 % 11/18/22 08:29 Eos % (Auto) 7.4 % 11/18/22 08:29 Baso % (Auto) 1.4 % 11/18/22 08:29 Neut # (Auto) 2.14 K/uL (1.40-6.50) 11/18/22 08:29 Lymph # (Auto) 1.35 K/uL (1.2-3.4) 11/18/22 08:29 [place] # (Auto) 0.43 K/uL (0.11-0.59) 11/18/22 08:29 Eos # (Auto) 0.32 K/uL (0-0.50) 11/18/22 08:29 Baso # (Auto) 0.06 K/uL (0-0.2) 11/18/22 08:29 Immature Gran # (Auto) 0.01 K/uL (0.01-0.20) 11/18/22 08:29 ABG pH 7.37 (7.35-7.45) 11/17/22 00:50 ABG pCO2 36 mmHg (35-46) 11/17/22 00:50 ABG pO2 84 mmHg (80-95) 11/17/22 00:50 ABG HCO3 21 mmol/L (19-24) 11/17/22 00:50 ABG O2 Saturation 97.7 % (90-95) H 11/17/22 00:50 ABG Base Excess -3.9 mEq/L (-9-1.8) 11/17/22 00:50 Kei Test Pos (Pos) 11/17/22 00:50 Oxygen Given RA 11/17/22 00:50 Sodium 137 mmol/L (136-145) 11/18/22 08:29 Potassium 3.9 mmol/L (3.5-5.1) 11/18/22 08:29 Chloride 106 mmol/L (98-107) 11/18/22 08:29 Carbon Dioxide 26 mmol/L (21-32) 11/18/22 08:29 Anion Gap 5 (3-11) 11/18/22 08:29 BUN 5 mg/dl (6-23) L 11/18/22 08:29 Creatinine 0.72 mg/dl (0.6-1.4) 11/18/22 08:29 Est Cr Clr Drug Dosing 136.2 ml/min 11/18/22 08:29 Est GFR ( Amer) 127.0 ml/min 11/18/22 08:29 Est GFR (Non-Af Amer) 109.5 ml/min 11/18/22 08:29 BUN/Creatinine Ratio 6.9 (10-20) L 11/18/22 08:29 Glucose 235 mg/dl (70-99(Fasting)) H 11/18/22 08:29 POC Glucose 152 mg/dl (70-99) H 11/18/22 12:06 Estimat Average Glucose 255 mg/dl 11/17/22 07:40 Hemoglobin A1c 10.5 % (4.5-5.6) H 11/17/22 07:40 Calcium 8.7 mg/dl (8.6-10.3) 11/18/22 08:29 Magnesium 1.8 mg/dl (1.7-2.4) 11/17/22 07:40 Total Bilirubin 0.6 mg/dl (0.2-1.0) 11/18/22 08:29 Direct Bilirubin 0.1 mg/dl (0-0.2) 11/18/22 08:29 AST 33 U/L (13-39) 11/18/22 08:29 ALT 33 U/L (7-52) 11/18/22 08:29 Alkaline Phosphatase 70 U/L (34-104) 11/18/22 08:29 Troponin I High Sens 3.0 pg/ml (0-20) 11/16/22 22:45 Total Protein 5.6 gm/dl (6.0-8.3) L D 11/18/22 08:29 Albumin 3.2 gm/dl (3.4-5.0) L 11/18/22 08:29 Globulin 3.4 gm/dl (2.5-4.0) 11/16/22 22:45 Albumin/Globulin Ratio 1.1 (0.9-2) 11/16/22 22:45 Lipase 9 U/L (11-82) L 11/18/22 08:29 Urine Color Yellow 11/16/22 22:38 Urine Appearance Clear (Clear) 11/16/22 22:38 Urine pH 5.0 (4.5-7.5) 11/16/22 22:38 Ur Specific [place] 1.009 (1.000-1.030) 11/16/22 22:38 Urine Protein Negative (Negative) 11/16/22 22:38 Urine Glucose (UA) 3+ (Negative) H 11/16/22 22:38 Urine Ketones Negative (Negative) 11/16/22 22:38 Urine Blood Negative (Negative) 11/16/22 22:38 Urine Nitrite Negative (Negative) 11/16/22 22:38 Urine Bilirubin Negative (Negative) 11/16/22 22:38 Urine Urobilinogen Negative (Negative) 11/16/22 22:38 Ur Leukocyte Esterase Negative (Negative) 11/16/22 22:38 Ethyl Alcohol mg/dL 247.4 mg/dl (<10.0) H 11/16/22 22:38 SARS-CoV-2, RNA, NAAT NEGATIVE (NEGATIVE) 11/16/22 22:30 Impressions Abdomen/Pelvis CT 11/16/22 22:31 Exam(s): CT ABDOMEN + PELVIS With Contrast IV Amt: 83 ML OPTIRAY 350 EXAM: CT Abdomen and Pelvis With Intravenous Contrast CLINICAL HISTORY: Reason for exam: etoh abuse, pancreatitis, severe pain. TECHNIQUE: Axial computed tomography images of the abdomen and pelvis with intravenous contrast. CTDI is 6.86 mGy and DLP is 378.16 mGy-cm. Automated exposure control was utilized for the study. A dose lowering technique was utilized adhering to the principles of ALARA. CONTRAST: Patient received 83 ML OPTIRAY 350 of IV contrast COMPARISON: Dated 11/09/22 FINDINGS: Lung bases: Unremarkable. No mass. No consolidation. ABDOMEN: Liver: Unremarkable. No mass. Gallbladder and bile ducts: Status post cholecystectomy. No ductal dilation. Pancreas: Sequela of chronic pancreatitis including dense calcification of the pancreatic head and neck. Stable distention of the main pancreatic duct. Spleen: Unremarkable. No splenomegaly. Adrenals: Unremarkable. No mass. Kidneys and ureters: Unremarkable. No solid mass. No hydronephrosis. Stomach and bowel: Unremarkable. No obstruction. No mucosal thickening. PELVIS: Appendix: No findings to suggest acute appendicitis. Bladder: Unremarkable. No mass. Reproductive: Unremarkable as visualized. ABDOMEN and PELVIS: Intraperitoneal space: Unremarkable. No free air. No significant fluid collection. Bones/joints: Postsurgical changes of the lower lumbar spine. No acute fracture. No dislocation. Soft tissues: Unremarkable. Vasculature: Unremarkable. No abdominal aortic aneurysm. Lymph nodes: Unremarkable. No enlarged lymph nodes. IMPRESSION: Stable sequela of chronic pancreatitis without acute inflammatory changes on this study. Electronically signed by: Jd oJ MD 11/17/22 00:30 AM (2) Alcohol intoxication Complication of substance-induced condition: uncomplicated Qualified Code(s): F10.920 - Alcohol use, unspecified with intoxication, uncomplicated (3) DM type 2 (diabetes mellitus, type 2) Diabetes mellitus complication status: with other specified complication Diabetes mellitus terminal supervisor insulin use: with terminal supervisor use Qualified Code(s): E11.69 - Type 2 diabetes mellitus with other specified complication; Z79.4 - intermediate teacher (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
--- NOTE | 2022-11-18 16:31 | Pain Management Consultation ---
Date of Consultation November 18, 2022 Assessment & Plan (1) Acute alcoholic pancreatitis: (2) Alcohol abuse: (3) Epigastric abdominal pain: (4) History of substance abuse: (5) Intentional drug overdose: (6) Pulmonary embolism: Plan 1. There is no role for interventional pain management at this time due to ongoing alcohol abuse and chronic apixaban therapy for DVT/pulmonary embolism. I discussed with the patient that abstinence from alcohol is advisable given recurrent acute alcoholic pancreatitis. We discussed that there are many community resources available should he wish to abstain from alcohol. 2. Agree with GI that patient should utilize clear liquids until pain is under control and does not warrant opiates. Would advise limited supply should opiates be prescribed as an outpatient due to history of substance abuse and intentional overdose history. 3. There are limited options for this patient from a pain management perspective until he decides to abstain from alcohol. No changes to his medication regimen were made at today's visit. 4. Thank you for this consultation. There is no need for the patient to follow-up with the [facility] pain management office at this point. Pain management will sign off. History of Present Illness Attending Physician: Elie Quezada MD History of Present Illness 45-year-old male with long history of alcoholic chronic pancreatitis with acute exacerbation. He continues to chew tobacco and drink approximately 6-8 beers daily. In addition, he has a history of pulmonary embolism and DVT on apixaban chronically. Most recent DVT noted approximately 3 months ago. He reports pain ranges between 3-7/10 sharp stabbing shooting worse with eating epigastric with radiation to his right upper quadrant and posterior to his epigastrium. He has been utilizing morphine 3 mg IV every 4 hours consistently as well as 1 dose of oxycodone 5 mg immediate release. For lunch today he ate tilapia and green beans. He acknowledges that oral intake may worsen pain but states "I wanted to try it." He denies any constipation stating his last bowel movement was yesterday. No other constitutional complaints. Previous history of substance abuse and suicide attempt of intentional overdose. Pain Assessment Full Body Front + Back: 1. 2. [facility] Combined Pain Scale: 4-Mild to Mod - Interrupts ADLs. Decrease in job performance Pain scale - at its best (0-10): 3 Pain scale - at its worst (0-10): 7 Allergies Allergy/AdvReac Type Severity Reaction Status Date / Time No Known Allergies Allergy Verified 11/16/22 22:50 Home Medications Medication Instructions Recorded Confirmed Type paroxetine HCl 20 mg tablet 20 mg PO QAM 12/20/19 11/16/22 History pantoprazole 40 mg tablet,delayed 40 mg PO QAM #30 tabs 03/01/21 11/16/22 Rx release acetaminophen 325 mg capsule 650 mg PO BID PRN Fever Or Pain 08/17/22 11/16/22 History (Tylenol) apixaban 5 mg tablet (Eliquis) 5 mg PO BID 08/17/22 11/17/22 History glipizide 5 mg tablet, extended 5 mg PO DAILYBB 10/20/22 11/16/22 History release 24 hr hydroxyzine pamoate 25 mg capsule 25 mg PO BID PRN Anxiety 10/20/22 11/16/22 History Pain History Pain Intensity Pain scale - at its best (0-10): 3 Pain scale - at its worst (0-10): 7 Patient History Medical History Abdominal pain Abdominal pain Abdominal pain, acute, epigastric Acute hyperglycemia Alcohol abuse (Unknown) Alcohol abuse Alcohol abuse Alcohol withdrawal Alcoholic ketosis Renae's esophagus (Unknown) "per EGD 11/23/09 " On 05/31/11 09:06 Martinez Jose wrote "per EGD 11/23/09 " Chest pain COVID-19 Depression Depression DM type 2 (diabetes mellitus, type 2) Encounter for alcohol abuse counseling and surveillance Encounter for pre-operative examination Encounter for tobacco use cessation counseling H/O acute pancreatitis "recurrent" History of substance abuse Hyperglycemia Intentional drug overdose Lumbar degenerative disc disease Mood disorder Mood disorder Nausea & vomiting Neuropathy Pancreatic duct stones Pancreatitis Panic disorder Pulmonary embolism on chronic apixaban Retrosternal chest pain Suicidal ideation Suicidal ideation Suicide attempt Surgical History H/O esophagogastroduodenoscopy "EGD 11/23/2009- mild gastritis, suspicious for gastroparesis, Z-line irregular EUS 02/04/2010- mild chronic pancreatitis, pronounced cholesterolosis of gallbladder, no biliary dilation or stones, probable gastroparesis EGD 10/31/2014- gastritis" S/P lumbar fusion L4-S1 2014 Family History Father Alcohol abuse Social History Smoking Status: Never smoker Tobacco Type: Smokeless Tobacco (Dip or Chew) Second Hand Exposure: No; Do You Dip or Chew Tobacco: Yes; Hx Alcohol Use: Yes Alcohol type: beer Hx Substance Use: No Preferred Language: [place] Citizen Communication Ability: Effective 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 Beliefs That Will Affect Care: None marital status: Current Living Situation: Parent Current Living Situation Comment: from home with mother How many Children do You have: 3 Other Information That Helps Us Care for You: No Feels Safe at Home: Yes Safety Concerns: Feels Safe At This Time Assistive Devices: None Physical Exam Constitutional: WD/WN, vitals as above well developed, well nourished and + well hydrated; no acute distress Eyes: PERRL ENMT: external ear and nose normal, oropharynx normal Neck: normal visual inspection Respiratory: normal respiratory effort; no respiratory distress Cardiovascular: Rate/Rhythm: regular rate Gastrointestinal (Abdomen): Inspection/Auscultation: abdomen not distended Percussion/Palpation: abdomen soft; abdomen nontender and no guarding Physical hernia noted. Musculoskeletal: Extremities: extremities normal to inspection and strength 5/5 throughout (Grossly) Skin: no rashes, warm and dry Psychiatric: A+Ox3, euthymic affect (Patient was sleeping on entrance to the room, arousable by voice.) Results (Pain Clinic) Laboratory Review Laboratory results: personally reviewed by me and pertinent findings noted below Additional Comments: 11/18/22 AST/ALT 33/33 alk phos 70 t bili 0.[address]: enhanced and reports reviewed CT Findings: 11/16/22 Exam(s): CT ABDOMEN + PELVIS With Contrast IV Amt: 83 ML OPTIRAY 350 EXAM: CT Abdomen and Pelvis With Intravenous Contrast CLINICAL HISTORY: Reason for exam: etoh abuse, pancreatitis, severe pain. TECHNIQUE: Axial computed tomography images of the abdomen and pelvis with intravenous contrast. CTDI is 6.86 mGy and DLP is 378.16 mGy-cm. Automated exposure control was utilized for the study. A dose lowering technique was utilized adhering to the principles of ALARA. CONTRAST: Patient received 83 ML OPTIRAY 350 of IV contrast COMPARISON: Dated 11/09/22 FINDINGS: Lung bases: Unremarkable. No mass. No consolidation. ABDOMEN: Liver: Unremarkable. No mass. Gallbladder and bile ducts: Status post cholecystectomy. No ductal dilation. Pancreas: Sequela of chronic pancreatitis including dense calcification of the pancreatic head and neck. Stable distention of the main pancreatic duct. Spleen: Unremarkable. No splenomegaly. Adrenals: Unremarkable. No mass. Kidneys and ureters: Unremarkable. No solid mass. No hydronephrosis. Stomach and bowel: Unremarkable. No obstruction. No mucosal thickening. PELVIS: Appendix: No findings to suggest acute appendicitis. Bladder: Unremarkable. No mass. Reproductive: Unremarkable as visualized. ABDOMEN and PELVIS: Intraperitoneal space: Unremarkable. No free air. No significant fluid collection. Bones/joints: Postsurgical changes of the lower lumbar spine. No acute fracture. No dislocation. Soft tissues: Unremarkable. Vasculature: Unremarkable. No abdominal aortic aneurysm. Lymph nodes: Unremarkable. No enlarged lymph nodes. IMPRESSION: Stable sequela of chronic pancreatitis without acute inflammatory changes on this study.
--- NOTE | 2022-11-18 19:17 | Electrocardiogram Report ---
Test Reason : Blood Pressure : / mmHG Vent. Rate : 107 BPM Atrial Rate : 107 BPM P-R Int : 152 ms QRS Dur : 084 ms QT Int : 334 ms P-R-T Axes : 062 060 050 degrees QTc Int : 445 ms Poor data quality, interpretation may be adversely affected Sinus tachycardia Cannot rule out Anterior infarct , age undetermined Abnormal ECG When compared with ECG of 08-NOV-2022 23:40, No significant change was found Confirmed by Antoni Meek ([id number]) on 11/18/2022 7:16:53 PM Referred By: REFERRED SELF Confirmed By:Antoni Meek
[2022-11-18 20:42] VITALS: PULSE 81; TEMP 98.1
[2022-11-19] MEDS: MoRPHine SULFATE 4 MG/ML 1 ML CARP\\VIAL IV PRN ×2 (01:40→05:41)
[2022-11-19] MEDS: oxyCODONE HCL IR 5 MG TAB (IMMEDIATE RELEASE) PO PRN ×2 (02:58→08:20)
[2022-11-19] MEDS: SODIUM CHLORIDE 0.9% 1000ML 1,000 ML IV SCH (05:36)
[2022-11-19] MEDS ORDERED: GABAPENTIN 600 MG TAB PO SCH (06:00)
[2022-11-19 06:59] LABS: Basophils # (auto) 0.05 K/uL (0-0.2); Basophils % (auto) 1.1 %; Eosinophils # (auto) 0.37 K/uL (0-0.50); Eosinophils % (auto) 8.4 %; Hematocrit (blood only) 38.4 % (42.0-52.0); Immature Granulocytes # (auto) 0.03 K/uL (0.01-0.20); Immature Granulocytes % (auto) 0.7 %; Lymphocytes # (auto) 1.13 K/uL (1.2-3.4); Lymphocytes % (auto) 25.5 %; Mean Corpuscular Hemoglobin 33.1 pg (25.0-34.0); Mean Corpuscular Hgb Conc 36.5 g/dL (32.0-36.0); Mean Corpuscular Volume 90.8 fL (80.0-100.0); Mean Platelet Volume 9.3 fL (9.4-12.4); Monocytes # (auto) 0.44 K/uL (0.11-0.59); Monocytes % (auto) 9.9 %; Neutrophils # (auto) 2.41 K/uL (1.40-6.50); Neutrophils % (auto) 54.4 %; Platelet Count 166 K/uL (130-400); RDW Coefficient of Variation 11.5 % (11.5-14.5); RDW Standard Deviation 38.2 fL (36.4-46.3); Red Blood Count 4.23 M/uL (4.70-6.10); White Blood Count 4.43 K/ul (4.8-10.8)
[2022-11-19 07:19] LABS: BUN Creatinine Ratio 6.8 (10-20); Creatinine Clr Calc Pharmacy 132.5 ml/min; Est GFR (African American) 125.5 ml/min; Est GFR (Non-African American) 108.3 ml/min; Potassium 4.1 mmol/L (3.5-5.1)
[2022-11-19 08:12] VITALS: BP 145/95; O2SAT 99
[2022-11-19] MEDS: THIAMINE HCL 100 MG in SYRINGE 9 ML IV SCH (08:18)
[2022-11-19] MEDS: PANTOprazole 40 MG TAB PO SCH (08:18)
[2022-11-19] MEDS: PARoxetine HCL 20 MG TAB PO SCH (08:18)
[2022-11-19] MEDS: APIXABAN 5 MG TABLET PO SCH (08:18)
[2022-11-19] MEDS: FAMOTIDINE 20 MG in SYRINGE 3 ML IV SCH (08:18)
[2022-11-19] MEDS: FOLIC ACID 1 MG in SYRINGE 9.8 ML IV SCH (08:18)
[2022-11-19] MEDS: LANTUS PER UNIT CHARGE SQ SCH (09:13)
[2022-11-19] MEDS: INSULIN ASPART PER UNIT CHARGE SC SCH ×2 (09:14→12:43)
--- NOTE | 2022-11-19 12:35 | Discharge Summary ---
Date of Service November 19, 2022 Admission HPI Per Admitting Provider This is a 47-year-old male with past medical history significant for ADHD, mood disorder, as per records history of diabetes, on oral medications, GERD, Renae's esophagus, history of multiple recurrent admissions for alcoholism and pancreatitis and abdominal pain history of PE, history of recurrent DVT, currently on Eliquis, chronic pain, history of narcotic abuse as per records, terminated medical agreement, , presents with abdominal pain. The patient was here last week with abdominal pain, was discharged the next day. He states he is still drinking 6-8 beers daily and having a lot of abdominal pain, 7/8 in severity, radiating to his back. Also some nausea and vomiting. Denies any blood in the vomitus. Normal bowel movements, no blood in the stools. Normal bladder movements. He says he has some child pain earlier that got resolved, currently no chest pain, no shortness of breath, no cough, no fevers, no headache, no neck pain, no blurred visions, no earache, no runny nose, no sore throat. Hemodynamically stable. Admission Exam Per Admitting Provider GENERAL: The patient is alert and oriented, not in acute distress. VITAL SIGNS: Temperature 36.8, pulse 100, respiratory rate 16, blood pressure 114/75, oxygen 98% on room air. HEENT: Pupils equal, round and reactive to light. Oral mucosa moist. NECK: No JVD, no neck masses. CARDIOVASCULAR: S1 and S2 heard. Regular rate and rhythm. No murmur, no gallop. RESPIRATORY SYSTEM: Normal AP diameter. No accessory muscle use. No wheezing or crackles. ABDOMEN: Soft, bowel sounds present. Some tenderness. Mild guarding, no rigidity, no distention. CENTRAL NERVOUS SYSTEM: Cranial nerves II-XII grossly intact, nonfocal. EXTREMITIES: No edema, no erythema. Principal Diagnosis Chronic pancreatitis Alcohol intoxication Type 2 diabetes mellitus Discharge Exam Constitutional: WD/WN, vitals as above, NAD, sitting up in bed, pleasant, conversing easily Respiratory: normal respiratory effort, lungs clear to auscultation, no wheeze, rales, rhonchi. Normal insp/exp effort, no accessory muscle use Cardiovascular: RRR, no murmur, no edema Vessels: no JVD or carotid bruit Chest: normal inspection of chest Abdomen: Mild tenderness in epigastric region. Musculoskeletal: no cyanosis or clubbing, extremities motor strength 5/5 Skin: no rashes, warm and dry normal turgor Neurologic: PERRL, EOMI, accommodation nl, no face palsy, no dysarthria CN's II- XI intact bilaterally and moves all extremities Psychiatric: A+Ox3, euthymic affect Lymphatic: no cervical or axillary lymphadenopathy : deferred Discharge Data Allergies Allergy/AdvReac Type Severity Reaction Status Date / Time No Known Allergies Allergy Verified 11/16/22 22:50 Consultations 11/17/22 00:35 ED Decision to Admit Stat 11/18/22 09:27 Consult Gastroenterology Routine 11/18/22 12:15 Consult Pain Management Routine Ordered Studies 11/16/22 22:31 CT abd pelvis IV con only Stat Hospital Course (1) Chronic pancreatitis: History of alcoholism and multiple episode of acute pancreatitis Presented with severe abdominal pain. CT abdomen pelvis showed stable sequelae of chronic pancreatitis without acute inflammatory changes. Lipase within normal limits. Continue on IV fluids Pain control with morphine and oxycodone; asked patient to regularly use oxycodone instead of morphine. During the hospitalization, patient was treated with IV fluids, pain medication and clear liquid diet. GI was consulted; recommend outpatient follow-up for endoscopic ultrasound. Pain management was also consulted; advised limited supply of opioids as outpatient. Patient was discharged home with instruction to follow-up with PCP, GI (2) Alcohol intoxication: Admitting blood alcohol level was 247.4 During the hospitalization, treated with tapering dose of gabapentin and Ativan. Patient did not have significant symptoms of withdrawal. Counseling done multiple times to abstain from alcohol. (3) DM type 2 (diabetes mellitus, type 2): Uncontrolled diabetes mellitus with A1c of 10.5 Hold outpatient glipizide Glargine and sliding scale as inpatient. On discharge, home glipizide were restarted. Patient counseled about diet. Plan Total Time Total Time Spent Total Time Spent (In Minutes): 40 Total Time Includes: Examination of the Patient, Discharge Planning, Medication Reconciliation, Communication With Other Providers and Other Discharge Plan Discharge Items Patient Disposition: Home - Self-Care Reason For Visit: ABDOMINAL PAIN Discharge Diagnosis: Chronic pancreatitis: Alcohol intoxication: Condition on Discharge: Good Activity: Resume your previous activity Non-emergency contact: Primary Care Provider Call non-emergency contact if: you have any medication questions and your symptoms worsen Follow-up/Referrals: Ino Alvares CRNP [Nurse Practitioner] - (The gastroenterology office will call you with a follow up appointment.) Dhiraj Myers DO [Primary Care Provider] - 11/25/22 11:20 am (Date & Time 11/25/2022 11:20 AM Provider Brandie Galvez DO [facility] ) Diet: Low Fat Addtl Attending Provider Instructions: You were admitted to the hospital with chronic pancreatitis. Please continue to take low-fat diet. You were seen by gastroenterology during the hospitalization; you will have outpatient endoscopic ultrasound in 2 months. You are prescribed oxycodone as needed for severe pain. You also have follow-up appointment with your primary care doctor. Pending Studies at Discharge: No Stand-Alone Forms: [facility], Pain - Opioid Pain Management, Smoking Cessation Medications and DC Order Prescriptions: New oxycodone 5 mg Tablet 5 mg PO Q8H PRN (Reason: pain) Qty: 8 0RF Continued paroxetine HCl 20 mg tablet 20 mg PO QAM pantoprazole 40 mg Tablet,Delayed Release (Dr/Ec) 40 mg PO QAM Qty: 30 0RF acetaminophen [Tylenol] 325 mg capsule 650 mg PO BID PRN (Reason: Fever Or Pain) Eliquis 5 mg tablet 5 mg PO BID Rx Instructions: It is ordered bid glipizide 5 mg tablet extended release 24hr 5 mg PO DAILYBB hydroxyzine pamoate 25 mg capsule 25 mg PO BID PRN (Reason: Anxiety) Discharge Orders: Discharge Order (Routine); Ordered 11/19/22 Ordered By: Elie Bowden/Other Patient Handouts: Diabetes and Drinking Alcohol Admission Data Admit Date/Time: 11/17/22 01:17 Attending Provider: Elie Quezada Admit Provider: Jed Sousa Primary Care Provider: Dhiraj Myers Other Providers: Jed Sousa ; Ino Alvares ; Riley Lowery ; Jen Reynolds ; Roselyn Peters ; Mila Lovelace ; Ijeoma Goins ; Fuad reid,Jarad ; Homero Mullen ; Deborah Molina ; Sanjay Bass ; Colton Moreland ; Christina Gill ; Margaret Banegas ; Marika Parrish ; So Prakash ; Camila Gentile ; Ye Tsang ; Brian Barrett ; Yue Pena ; Asaf Marshall Jr ; Ayla Chance Other Interventions: Discharge Summary Assessment (RN) Last Done: 11/19/22 12:49
[2022-11-20] MEDS ORDERED: GABAPENTIN 600 MG TAB PO SCH (18:00)
== END 2022-11-19 13:14 | disposition home or self-care (01) | DRG 439 ==
LOC: ED 22:25 → 3E 11-17 01:17
DX: K22.70 Barrett's esophagus without dysplasia; F10.229 Alcohol dependence with intoxication, unspecified; Z79.01 Long term (current) use of anticoagulants; Z98.1 Arthrodesis status; E87.1 Hypo-osmolality and hyponatremia; E11.65 Type 2 diabetes mellitus with hyperglycemia; Z86.19 Personal history of other infectious and parasitic diseases; K86.0 Alcohol-induced chronic pancreatitis; Z86.711 Personal history of pulmonary embolism; Z86.718 Personal history of other venous thrombosis and embolism; K21.9 Gastro-esophageal reflux disease without esophagitis; Z79.84 Long term (current) use of oral hypoglycemic drugs

== ENCOUNTER 2022-12-04 18:05 | Inpatient (IN) ==
[2022-12-04] MEDS ORDERED: THIAMINE HCL 100 MG in SYRINGE 9 ML IV STA (18:21)
[2022-12-04] MEDS ORDERED: MoRPHine SULFATE 10 MG/ML CARP/VIAL IV STA ×2 (18:21→19:31)
[2022-12-04] MEDS ORDERED: LORazepam 2 MG/1 ML VIAL IV STA (18:21)
[2022-12-04] MEDS ORDERED: SODIUM CHLORIDE 0.9% 1000ML 2,000 ML IV ONE (18:26)
--- NOTE | 2022-12-04 18:26 | Emergency Department Note ---
Impression & Plan Intractable abdominal pain, Alcohol withdrawal, Acute hyperglycemia, Acute epigastric pain ED Provider Note Name: RIKY MELTON Age: 47 Sex: M Arrives Via: Walk-In Informant: Patient ED Provider: Jose Clemente MD Chief Complaint: Abdominal pain Impression: As per impressions above Medical Decision Makin-year-old male arrives for evaluation of acute worsening epigastric abdominal pain. This is similar to his previous episodes of acute pancreatitis from his chronic alcoholic pancreatitis. Patient stopped drinking about little over a week ago. He notes he feels he went through most of his withdrawal but on arrival he is a bit tachycardic and tremulous. No evidence of seizure-like activity and he is not significantly hypertensive. He was given IV Ativan as well as IV pain medications with improvement in heart rate is coming down. Laboratory work-up is unremarkable other than significant hyperglycemia. He was treated for this as well with insulin and fluids. Did require further pain medications as well. Given the patient's long history this is likely recurrent pancreatitis I do not think that getting a CT scan at this time is necessary. He has no peritonitis on examination. Hospitalist was consulted for further management given the intractable pain and the hyperglycemia. I will note patient admits he has not been taking any of his blood sugar medications because he feels they do not work. Prior Medical Record and Triage/Nursing Notes reviewed by Me External chart reviewed extensively by me Differentials:Alcohol withdrawal, hypoglycemia, sepsis, DKA, pancreatitis, ACS, dehydration, multiple other pathologies considered Vital Signs: reviewed and remarkable for tachycardia Interventions: Morphine 6 mg IV x2, Ativan 1 mg IV, insulin 8 units IV, normal saline bolus 1 L IV Labs:Reviewed and remarkable elevated blood sugar otherwise unremarkable extensive laboratory work-up EKG:As per my interpretation. Indication epigastric pain. Normal sinus rhythm 85 bpm no ectopy no ischemia. QTc 442. When compared to an EKG of November 16, 2022 there is no acute change. Cardiac/Tele Monitoring: Cardiac Monitoring: An Order was placed for continuous cardiac monitoring. The monitor shows a rate of 80 with a normal sinus rhythm. Consults:Dr Merry Henson Hospitalist Plan: Disposition:Hospitalization. Condition: Good History of Present Illness:47-year-old male arrives for evaluation of epigastric pain. Patient with a long history of recurrent pancreatitis alcoholism and diabetes. He notes that he has been having issues keeping his sugars under control and has been on several different medications both insulin and metformin and other meds without improvement and is no longer on any diabetic medications. He says about a week ago he attempted to quit drinking and went through DTs. He actually states he was doing better the last 2 days but throughout the day today worsening epigastric pain nausea vomiting mid chest pain and increasing shakes. Notes he feels very tremulous. No falls, trauma, injuries. Denies any significant headache, syncope, difficulty breathing, swelling, or bleeding or bruising, other concerning signs or symptoms. No medications prior to arrival. Any exertion makes worse rest makes better. States is very similar to his previous pancreatitis episodes. Past History:See Below Home Medications:See Below Allergies:NDKA Vitals:Blood Pressure: 124/85, Pulse 98, RR 15, T 36.5C, O2 98% on RA Physical Exam: GENERAL: Patient is uncomfortable/anxious appearing and in moderate distress. Tremulous, dehydrated appearing EYES: No scleral icterus, unremarkable pupils. ENT: Mucous membranes dry, no nasal congestion. RESPIRATORY: No dyspnea. Clear to auscultation and equal bilaterally. No wheeze, no rhonchi. CARDIOVASCULAR:Tachy.No murmurs, rubs, gallops appreciated. GASTROINTESTINAL: Vague epigastric tenderness palpation without peritonitis EXTREMITIES: Normal motion all extremities, no cyanosis, no edema. NEUROLOGIC: Alert and oriented, no focal neurologic deficit appreciated SKIN: No rash, no jaundice, no diaphoresis. PSYCH: Appropriate GCS: 15 ED Course: Times/Reassessments: Multiple repeat evaluations patient does appear a bit better but still having discomfort Jose Clemente MD Past Med/Surg History Medical History Abdominal pain Abdominal pain Abdominal pain, acute, epigastric Acute hyperglycemia Alcohol abuse (Unknown) Alcohol abuse Alcohol abuse Alcohol withdrawal Alcoholic ketosis Renae's esophagus (Unknown) "per EGD 11/23/09 " On 05/31/11 09:06 Martinez Jose wrote "per EGD 11/23/09 " Chest pain COVID-19 Depression Depression DM type 2 (diabetes mellitus, type 2) Encounter for alcohol abuse counseling and surveillance Encounter for pre-operative examination Encounter for tobacco use cessation counseling H/O acute pancreatitis "recurrent" History of substance abuse Hyperglycemia Intentional drug overdose Lumbar degenerative disc disease Mood disorder Mood disorder Nausea & vomiting Neuropathy Pancreatic duct stones Pancreatitis Panic disorder Pulmonary embolism on chronic apixaban Retrosternal chest pain Suicidal ideation Suicidal ideation Suicide attempt Surgical History H/O esophagogastroduodenoscopy "EGD 11/23/2009- mild gastritis, suspicious for gastroparesis, Z-line irregular EUS 02/04/2010- mild chronic pancreatitis, pronounced cholesterolosis of gallbladder, no biliary dilation or stones, probable gastroparesis EGD 10/31/2014- gastritis" S/P lumbar fusion L4-S1 2014 Family History Father Alcohol abuse Social History Smoking Status: Never smoker Tobacco Type: Smokeless Tobacco (Dip or Chew) Second Hand Exposure: No; Do You Dip or Chew Tobacco: Yes; Hx Alcohol Use: Yes Alcohol type: beer Hx Substance Use: No Preferred Language: Gabonese Communication Ability: Effective Wastewater Supervisor Required: No Beliefs That Will Affect Care: None marital status: Current Living Situation: Parent Current Living Situation Comment: from home with mother How many Children do You have: 3 Feels Safe at Home: Yes Assistive Devices: None Allergies Allergies Allergy/AdvReac Type Severity Reaction Status Date / Time No Known Allergies Allergy Verified 12/04/22 21:48 Home Meds Home Medications Medication Instructions Recorded Confirmed paroxetine HCl 20 mg tablet 20 mg PO QAM 12/20/19 12/04/22 acetaminophen 325 mg capsule 650 mg PO BID PRN Fever Or Pain 08/17/22 12/04/22 (Tylenol) apixaban 5 mg tablet (Eliquis) 5 mg PO BID 08/17/22 12/04/22 hydroxyzine pamoate 25 mg capsule 25 mg PO BID PRN Anxiety 10/20/22 12/04/22 diazepam 10 mg tablet 10 mg PO DIRECTED PRN Anxiety 12/04/22 12/04/22 Previous Rx's Medication Instructions Recorded pantoprazole 40 mg tablet,delayed 40 mg PO QAM #30 tabs 03/01/21 release oxycodone 5 mg tablet 5 mg PO Q8H PRN pain #8 tabs 11/19/22 Results & Data (ED) Vital Signs Vital Signs - 24 hr 12/04/22 18:07 12/04/22 18:31 12/04/22 18:43 Temperature 36.5 C Temperature Source Temporal Artery Scan Pulse Rate 98 H 101 H Pulse Rate [Apical] 96 H Pulse Rhythm [Apical] Regular Respiratory Rate 15 18 Respiratory Effort / Characteristics Non-Labored Spontaneous Respiratory Depth Normal Respiratory Pattern Regular Blood Pressure 124/85 Blood Pressure [Right Arm] 120/88 Blood Pressure Mean 98 Blood Pressure Mean [Right Arm] 98 Blood Pressure Position [Right Arm] Lying Pulse Oximetry 98 100 Oxygen Delivery Method Room Air Room Air Sepsis Recent Fever Within 48 Hours No Sepsis New/Unexplained Change in Mental Status No Sepsis Action Taken by Nursing No Action Required Laboratory Data 12/04/22 18:35 12/04/22 19:54 Lab Results 12/04/22 12/04/22 12/04/22 Range/Units 18:10 18:35 18:35 WBC 5.02 (4.8-10.8) K/ul RBC 4.96 (4.70-6.10) M/uL Hgb 16.4 (14.0-18.0) g/dl Hct 46.1 (42.0-52.0) % MCV 92.9 (80.0-100.0) fL MCH 33.1 (25.0-34.0) pg MCHC 35.6 (32.0-36.0) g/dL RDW Std Deviation 39.8 (36.4-46.3) fL RDW Coeff of Gucci 11.7 (11.5-14.5) % Plt Count 189 (130-400) K/uL MPV 10.0 (9.4-12.4) fL Immature Gran % (Auto) 0.2 % Neut % (Auto) 56.9 % Lymph % (Auto) 25.5 % Freestone % (Auto) 10.4 % Eos % (Auto) 5.8 % Baso % (Auto) 1.2 % Neut # (Auto) 2.86 (1.40-6.50) K/uL Lymph # (Auto) 1.28 (1.2-3.4) K/uL Freestone # (Auto) 0.52 (0.11-0.59) K/uL Eos # (Auto) 0.29 (0-0.50) K/uL Baso # (Auto) 0.06 (0-0.2) K/uL Immature Gran # (Auto) 0.01 (0.01-0.20) K/uL VBG pH (7.36-7.41) VBG pCO2 (38-50) mmHg VBG pO2 mmHg VBG HCO3 mmol/L VBG O2 Saturation % VBG Base Excess mEq/L Sodium 132 L (136-145) mmol/L Potassium TNP Chloride 98 (98-107) mmol/L Carbon Dioxide 24 (21-32) mmol/L Anion Gap 10 (3-11) BUN 15 (6-23) mg/dl Creatinine 0.90 (0.6-1.4) mg/dl Est Cr Clr Drug Dosing 109.0 ml/min Est GFR ( Amer) 115.8 ml/min Est GFR (Non-Af Amer) 99.9 ml/min BUN/Creatinine Ratio 16.7 (10-20) Glucose 456 H* (70-99(Fasting)) mg/dl POC Glucose 439 H* (70-99) mg/dl Lactate (0.4-2.0) mmol/L Calcium 10.0 (8.6-10.3) mg/dl Magnesium 2.0 (1.7-2.4) mg/dl Total Bilirubin 0.7 (0.2-1.0) mg/dl Direct Bilirubin TNP AST TNP ALT 29 (7-52) U/L Alkaline Phosphatase 61 (34-104) U/L Troponin I High Sens < 2.3 (0-20) pg/ml Total Protein 8.0 (6.0-8.3) gm/dl Albumin 4.3 (3.4-5.0) gm/dl Lipase 60 (11-82) U/L Procalcitonin (0-0.5) ng/ml SARS-CoV-2, RNA, NAAT (NEGATIVE) 12/04/22 12/04/22 12/04/22 Range/Units 18:35 18:35 18:42 WBC (4.8-10.8) K/ul RBC (4.70-6.10) M/uL Hgb (14.0-18.0) g/dl Hct (42.0-52.0) % MCV (80.0-100.0) fL MCH (25.0-34.0) pg MCHC (32.0-36.0) g/dL RDW Std Deviation (36.4-46.3) fL RDW Coeff of Gucci (11.5-14.5) % Plt Count (130-400) K/uL MPV (9.4-12.4) fL Immature Gran % (Auto) % Neut % (Auto) % Lymph % (Auto) % Freestone % (Auto) % Eos % (Auto) % Baso % (Auto) % Neut # (Auto) (1.40-6.50) K/uL Lymph # (Auto) (1.2-3.4) K/uL Freestone # (Auto) (0.11-0.59) K/uL Eos # (Auto) (0-0.50) K/uL Baso # (Auto) (0-0.2) K/uL Immature Gran # (Auto) (0.01-0.20) K/uL VBG pH 7.34 L (7.36-7.41) VBG pCO2 49 (38-50) mmHg VBG pO2 23 mmHg VBG HCO3 26 mmol/L VBG O2 Saturation < 60.0 % VBG Base Excess -0.2 mEq/L Sodium (136-145) mmol/L Potassium Chloride (98-107) mmol/L Carbon Dioxide (21-32) mmol/L Anion Gap (3-11) BUN (6-23) mg/dl Creatinine (0.6-1.4) mg/dl Est Cr Clr Drug Dosing ml/min Est GFR ( Amer) ml/min Est GFR (Non-Af Amer) ml/min BUN/Creatinine Ratio (10-20) Glucose (70-99(Fasting)) mg/dl POC Glucose (70-99) mg/dl Lactate (0.4-2.0) mmol/L Calcium (8.6-10.3) mg/dl Magnesium (1.7-2.4) mg/dl Total Bilirubin (0.2-1.0) mg/dl Direct Bilirubin AST ALT (7-52) U/L Alkaline Phosphatase (34-104) U/L Troponin I High Sens (0-20) pg/ml Total Protein (6.0-8.3) gm/dl Albumin (3.4-5.0) gm/dl Lipase (11-82) U/L Procalcitonin < 0.05 (0-0.5) ng/ml SARS-CoV-2, RNA, NAAT NEGATIVE (NEGATIVE) 12/04/22 12/04/22 12/04/22 Range/Units 18:46 19:54 20:32 WBC (4.8-10.8) K/ul RBC (4.70-6.10) M/uL Hgb (14.0-18.0) g/dl Hct (42.0-52.0) % MCV (80.0-100.0) fL MCH (25.0-34.0) pg MCHC (32.0-36.0) g/dL RDW Std Deviation (36.4-46.3) fL RDW Coeff of Gucci (11.5-14.5) % Plt Count (130-400) K/uL MPV (9.4-12.4) fL Immature Gran % (Auto) % Neut % (Auto) % Lymph % (Auto) % Freestone % (Auto) % Eos % (Auto) % Baso % (Auto) % Neut # (Auto) (1.40-6.50) K/uL Lymph # (Auto) (1.2-3.4) K/uL Freestone # (Auto) (0.11-0.59) K/uL Eos # (Auto) (0-0.50) K/uL Baso # (Auto) (0-0.2) K/uL Immature Gran # (Auto) (0.01-0.20) K/uL VBG pH (7.36-7.41) VBG pCO2 (38-50) mmHg VBG pO2 mmHg VBG HCO3 mmol/L VBG O2 Saturation % VBG Base Excess mEq/L Sodium (136-145) mmol/L Potassium 4.1 Chloride (98-107) mmol/L Carbon Dioxide (21-32) mmol/L Anion Gap (3-11) BUN (6-23) mg/dl Creatinine (0.6-1.4) mg/dl Est Cr Clr Drug Dosing ml/min Est GFR ( Amer) ml/min Est GFR (Non-Af Amer) ml/min BUN/Creatinine Ratio (10-20) Glucose (70-99(Fasting)) mg/dl POC Glucose (70-99) mg/dl Lactate 2.2 H* 2.0 (0.4-2.0) mmol/L Calcium (8.6-10.3) mg/dl Magnesium (1.7-2.4) mg/dl Total Bilirubin (0.2-1.0) mg/dl Direct Bilirubin 0.1 AST 27 ALT (7-52) U/L Alkaline Phosphatase (34-104) U/L Troponin I High Sens (0-20) pg/ml Total Protein (6.0-8.3) gm/dl Albumin (3.4-5.0) gm/dl Lipase (11-82) U/L Procalcitonin (0-0.5) ng/ml SARS-CoV-2, RNA, NAAT (NEGATIVE) Administered Medications Apixaban (Apixaban 5 Mg Tablet) 5 mg PO BID [facility] Stop: 01/03/23 22:40 Last Admin: 12/04/22 23:53 Dose: 5 mg Documented By: GANGA Hydromorphone HCl (Hydromorphone Inj 0.5 Mg/0.5 Ml Syr) 0.5 mg IV Q4H PRN PRN Reason: Pain Stop: 12/18/22 22:40 Last Admin: 12/04/22 23:05 Dose: 0.5 mg Documented By: GANGA Lactated Ringer's (Lr) 1,000 mls @ 150 mls/hr IV .Q6H40M [facility] Stop: 01/03/23 22:40 Last Admin: 12/04/22 23:06 Dose: 150 mls/hr Documented By: GANGA Famotidine 20 mg/ Syringe 5 mls @ 2.5 mls/min IV BID [facility] Stop: 01/03/23 22:40 Last Admin: 12/04/22 23:52 Dose: 2.5 mls/min Documented By: GANGA Insulin Aspart (Insulin Aspart Per Unit Charge) 0 units SC Q6 [facility] Stop: 01/03/23 22:40 Last Admin: 12/04/22 23:54 Dose: 4 units Documented By: GANGA Co-signed By: JUAN Insulin Glargine (Lantus Per Unit Charge) 5 units SQ BID [facility] Stop: 01/03/23 22:40 Last Admin: 12/04/22 23:55 Dose: 5 units Documented By: GANGA Co-signed By: JUAN Ondansetron HCl (Ondansetron Inj 2 Mg/Ml 2 Ml Vial) 4 mg IV Q6H PRN PRN Reason: Nausea Stop: 01/03/23 22:40 Last Admin: 12/04/22 23:05 Dose: 4 mg Documented By: GANGA Discontinued Medications Droperidol (Droperidol 5 Mg/2 Ml Vial) 1.25 mg IV ONE STA Stop: 12/04/22 19:21 Last Admin: 12/04/22 21:17 Dose: Not Given Documented By: BRIONNA Gabapentin (Gabapentin 600 Mg Tab) 1,200 mg PO NOW ONE Stop: 12/04/22 22:42 Last Admin: 12/04/22 23:53 Dose: 1,200 mg Documented By: GANGA Thiamine HCl 100 mg/ Syringe 10 mls @ 2 mls/min IV NOW STA Stop: 12/04/22 18:25 Last Admin: 12/04/22 19:17 Dose: 2 mls/min Documented By: BRIONNA Sodium Chloride (Nss 1000ml) 2,000 mls @ 999 mls/hr IV .Q2H1M ONE Stop: 12/04/22 20:26 Last Infusion: 12/04/22 21:18 Dose: 0 mls/hr Documented By: Admin: 12/04/22 18:36 Dose: 999 mls/hr Documented By: BRIONNA Pantoprazole Sodium 40 mg/ (Syringe) 10 mls @ 5 mls/min IV NOW ONE Stop: 12/04/22 19:21 Last Admin: 12/04/22 20:12 Dose: 5 mls/min Documented By: BRIONNA Insulin Human Regular (Novolin-R Insulin Per Unit Charge) 8 units IV NOW STA Stop: 12/04/22 19:20 Last Admin: 12/04/22 19:31 Dose: 8 units Documented By: BRIONNA Co-signed By: MARCUS Lorazepam (Lorazepam 2 Mg/1 Ml Vial) 1 mg IV NOW STA Stop: 12/04/22 18:22 Last Admin: 12/04/22 18:36 Dose: 1 mg Documented By: BRIONNA Morphine Sulfate (Morphine Sulfate 10 Mg/Ml Carp/Vial) 6 mg IV NOW STA Stop: 12/04/22 18:22 Last Admin: 12/04/22 18:36 Dose: 6 mg Documented By: BRIONNA Morphine Sulfate (Morphine Sulfate 10 Mg/Ml Carp/Vial) 6 mg IV NOW STA Stop: 12/04/22 19:32 Last Admin: 12/04/22 20:12 Dose: 6 mg Documented By: BRIONNA Discharge Plan Visit Data Chief Complaint: Hyperglycemia Stated Complaint: CHEST PAIN,BACK PAIN,DIZZY, 600 BLOOD SUGAR ED Provider: Jose Clemente Discharge Problem: Intractable abdominal pain, Alcohol withdrawal, Acute hyperglycemia, Acute epigastric pain Patient Disposition: Admitted As Inpatient Discharge Instructions Interventions: ED Discharge Assessment Last Done: 12/04/22 23:44 Alcohol withdrawal Qualifiers: Complication of substance-induced condition: uncomplicated Qualified Code(s): F10.930 - Alcohol use, unspecified with withdrawal, uncomplicated
[2022-12-04 18:44] LABS: Base Excess VBG -0.2 mEq/L; HCO3 VBG 26 mmol/L; Oxygen Saturation VBG < 60.0 %; PCO2 VBG 49 mmHg (38-50); PO2 VBG 23 mmHg; pH VBG 7.34 (7.36-7.41)
[2022-12-04 18:56] LABS: Basophils # (auto) 0.06 K/uL (0-0.2); Basophils % (auto) 1.2 %; Eosinophils # (auto) 0.29 K/uL (0-0.50); Eosinophils % (auto) 5.8 %; Hematocrit (blood only) 46.1 % (42.0-52.0); Hemoglobin 16.4 g/dl (14.0-18.0); Immature Granulocytes # (auto) 0.01 K/uL (0.01-0.20); Immature Granulocytes % (auto) 0.2 %; Lymphocytes # (auto) 1.28 K/uL (1.2-3.4); Lymphocytes % (auto) 25.5 %; Mean Corpuscular Hemoglobin 33.1 pg (25.0-34.0); Mean Corpuscular Hgb Conc 35.6 g/dL (32.0-36.0); Mean Corpuscular Volume 92.9 fL (80.0-100.0); Monocytes # (auto) 0.52 K/uL (0.11-0.59); Monocytes % (auto) 10.4 %; Neutrophils # (auto) 2.86 K/uL (1.40-6.50); Neutrophils % (auto) 56.9 %; Platelet Count 189 K/uL (130-400); RDW Coefficient of Variation 11.7 % (11.5-14.5); RDW Standard Deviation 39.8 fL (36.4-46.3); Red Blood Count 4.96 M/uL (4.70-6.10); White Blood Count 5.02 K/ul (4.8-10.8)
[2022-12-04 19:10] LABS: Alanine Aminotransferase 29 U/L (7-52); Albumin Level 4.3 gm/dl (3.4-5.0); Alkaline Phosphatase 61 U/L (34-104); Anion Gap 10 (3-11); BUN Creatinine Ratio 16.7 (10-20); Bilirubin,Total 0.7 mg/dl (0.2-1.0); Blood Urea Nitrogen 15 mg/dl (6-23); Carbon Dioxide 24 mmol/L (21-32); Chloride 98 mmol/L (98-107); Est GFR (African American) 115.8 ml/min; Est GFR (Non-African American) 99.9 ml/min; Glucose 456 mg/dl (70-99(Fasting)); Lipase 60 U/L (11-82); Sodium 132 mmol/L (136-145)
[2022-12-04] MEDS ORDERED: INSULIN HUMAN REGULAR IV STA (19:12)
[2022-12-04 19:15] LABS: Troponin I High Sensitivity < 2.3 pg/ml (0-20)
[2022-12-04] MEDS ORDERED: NovoLIN-R INSULIN PER UNIT CHARGE IV STA (19:19)
[2022-12-04] MEDS ORDERED: DROPERIDOL 5 MG/2 ML VIAL IV STA (19:20)
[2022-12-04] MEDS ORDERED: PANTOprazole 40 MG in SYRINGE 0 ML IV ONE (19:20)
[2022-12-04 20:31] LABS: Bilirubin Direct 0.1 mg/dl (0-0.2); Potassium 4.1 mmol/L (3.5-5.1)
[2022-12-04] MEDS ORDERED: GLUCOSE 40% GEL 15 GM TUBE PO PRN (22:41)
[2022-12-04] MEDS ORDERED: Ativan IV Alcohol Withdrawal--Active Protocol IV PRN (22:41)
[2022-12-04] MEDS ORDERED: GLUCAGON FOR INJ 1 MG VIAL SQ PRN (22:41)
[2022-12-04] MEDS ORDERED: NITROGLYCERIN SL 0.4 MG/TAB TAB SL PRN (22:41)
[2022-12-04] MEDS ORDERED: GABAPENTIN 600 MG TAB PO ONE (22:41)
[2022-12-04] MEDS ORDERED: CARBOHYDRATES FOR HYPOGLYCEMIA PO PRN (22:41)
[2022-12-04] MEDS ORDERED: PHARMACY GLYCEMIC MGMT CONSULT PRN (22:41)
[2022-12-04] MEDS ORDERED: LORazepam 2 MG/1 ML VIAL IV PRN ×3 (22:41)
[2022-12-04] MEDS ORDERED: GLUCOSE 10 TAB/TUBE PO PRN (22:41)
[2022-12-04] MEDS ORDERED: GABAPENTIN 1200MG ALCOHOL WITHDRAWAL LOAD PO STA (22:41)
[2022-12-04] MEDS ORDERED: DEXTROSE 50% 50 ML SYRINGE IV PRN (22:41)
[2022-12-04] MEDS: ONDANSETRON INJ 2 MG/ML 2 ML VIAL IV PRN (23:05)
[2022-12-04] MEDS: HYDROmorphone INJ 0.5 MG/0.5 ML SYR IV PRN (23:05)
[2022-12-04] MEDS: LACTATED RINGER'S 1,000 ML IV SCH (23:06)
[2022-12-04] MEDS: FAMOTIDINE 20 MG in SYRINGE 3 ML IV SCH (23:52)
[2022-12-04] MEDS: APIXABAN 5 MG TABLET PO SCH (23:53)
[2022-12-04] MEDS: INSULIN ASPART PER UNIT CHARGE SC SCH (23:54)
[2022-12-04] MEDS: LANTUS PER UNIT CHARGE SQ SCH (23:55)
--- NOTE | 2022-12-05 00:06 | History and Physical Report ---
DATE OF ADMISSION: 12/04/2022. CHIEF COMPLAINT: Abdominal pain and hyperglycemia. HISTORY OF PRESENT ILLNESS: This is a 47-year-old male with past medical history significant for ADHD, mood disorder as per records, history of diabetes. He is currently not taking any medications because Jardiance not working and metformin causing GI symptoms, so he has not taken his medications and he doesn't know that he is on other medications ,, history of GERD, history of Renae's esophagus, history of multiple recurrent admissions for alcoholism and pancreatitis and abdominal pain, history of PE, history of recurrent DVT, currently on Eliquis, he says taking Eliquis regularly, chronic pain, history of narcotic abuse as per records, terminated medical agreement, presents with abdominal pain and high sugars. The patient states that he is not drinking alcohol since last 1-1/2 weeks and since he is not taking his diabetes medications, sugar is running high, he was feeling some blurred visions and also since morning, he developed severe abdominal pain associated with nausea. Last night, he had one episode of vomiting and he was having diarrhea. Couple of hours ago had some chest pain that resolved now . Says abdominal pain causing shortness of breath. Denies any earache, no runny nose, no sore throat. He has occasional dry cough. He thinks he has some pink stools last night. Normal bladder movements. The patient was tremulous in the ER. after a dose of Ativan, tremors improved. ALLERGIES: No known drug allergies. PAST MEDICAL HISTORY: As mentioned above. PAST SURGICAL HISTORY: EGD, EGD with endoscopic ultrasound, laparoscopic cholecystectomy, port removal, appendectomy. MEDICATIONS: Supposed to be on Tylenol p.r.n., Eliquis 5 mg p.o. b.i.d., glipizide 5 mg daily, atorvastatin 20 mg p.o. b.i.d. p.r.n., Protonix 40 mg p.o. daily, paroxetine 20 mg p.o. a.m. FAMILY HISTORY: Significant for father has depression and alcohol abuse. Aunt has manic depression. SOCIAL HISTORY: Lives with mom. Chews tobacco. Used to drink like, heavy drinking alcohol, but states last 1-1/2 weeks, he did not drink. No drug use. REVIEW OF SYSTEMS: As per HPI. Rest of review of systems is negative. PHYSICAL EXAMINATION: GENERAL: The patient is of moderate build, not in acute distress. VITAL SIGNS: Temperature 36.5, pulse 96, respiratory rate 18, blood pressure 120/88, oxygen 100% on room air. HEENT: Pupils equal, round and reactive to light. Oral mucosa moist. NECK: No JVD. No neck masses. CARDIOVASCULAR: S1 and S2 heard. Regular rate and rhythm. No murmur, no gallop. RESPIRATORY SYSTEM: Normal AP diameter. No accessory muscle use. No wheezing or crackles. ABDOMEN: Soft, bowel sounds present. Diffuse tenderness, mild guarding. No rigidity. No distention. CENTRAL NERVOUS SYSTEM: Alert and oriented. Speech is clear. No facial droop. Obeys simple commands. Moves extremities. EXTREMITIES: No edema, no erythema. LABORATORY DATA: WBC 5, hemoglobin 16.4, hematocrit 46.1, platelets 189. Venous blood gas; pH of 7.34, pCO2 39, bicarbonate 26. Sodium 132, potassium 4.1, chloride 98, CO2 of 24, BUN 15, creatinine 0.9, serum glucose 156. Lactate 2, calcium 10, magnesium 2, total bilirubin 0.7, direct bilirubin 0.1, AST 27, ALT 29, alkaline phosphatase 61. Troponin I high sensitivity less than 2.3. Lipase 60. Procalcitonin less than 0.05, SARS-CoV-2 rapid test negative. DIAGNOSTIC DATA: EKG, sinus tachycardia at a rate of 111, possible left atrial enlargement, no significant change from previous. ASSESSMENT AND PLAN: This is a 47-year-old male, presents with abdominal pain and hyperglycemia. 1. Abdominal pain. Multiple admissions for abdominal pain, alcoholism, pancreatitis /chronic pancreatitis. His lipase level is okay. CT scan was not done because of multiple CAT scans. Possible gastritis. We will place him on Pepcid b.i.d., IV LR 150 mL per hour, IV Dilaudid p.r.n., IV antiemetics. N.p.o. If not improving , consult GI. 2. Hyperglycemia, diabetes not taking any medications.Not in diabetic ketoacidosis. Received IV insulin in the ER. We will continue with Lantus. 5units bid and insulin sliding scale. Continue to follow the blood sugars.Glycemic pharmacy consult. Needs medication at the time of discharge. The patient is not taking any medications at home for diabetes. 3. History of pulmonary embolus, recurrent deep venous thrombosis, on Eliquis. Patient says he is taking his medications. 4. GI bleed? Patient states questionable some small blood in the stools last night. His hemoglobin is stable here. We will follow stool for Hemoccult as the patient is on Eliquis. 4. Alcoholism. He states he did not drink alcohol for last 1-1/2 weeks. He was tremulous in the ER. Received IV thiamine in the ER. We will place him on alcohol protocol with IV Ativan p.r.n. P.o. thiamine, p.o. folic acid. Closely monitor for withdrawal. 5. Deep venous thrombosis prophylaxis. On Eliquis. DISPOSITION: Closely monitor in the med tele. Expect to discharge home and follow up with his family doctor. Level 1 full code. Job ID: [id number] MTDD
[2022-12-05] MEDS ORDERED: PROMETHAZINE HCL 12.5 MG in SODIUM CHLORIDE 0.9% 50 ML IV STA (01:57)
[2022-12-05 02:06] LABS: Appearance Urine Clear (Clear); Bilirubin Urine Negative (Negative); Blood Urine Negative (Negative); Color Urine Yellow; Glucose Urine UA 3+ (Negative); Ketones Urine 1+ (Negative); Leukocyte Esterase Urine Negative (Negative); Nitrite Urine Negative (Negative); Protein Urine Negative (Negative); Specific Gravity Urine 1.038 (1.000-1.030); Urobilinogen Urine Negative (Negative)
[2022-12-05] MEDS: INSULIN ASPART PER UNIT CHARGE SC SCH ×5 (02:06→21:04)
[2022-12-05] MEDS: HYDROmorphone INJ 0.5 MG/0.5 ML SYR IV PRN ×5 (03:16→21:48)
[2022-12-05] MEDS: LACTATED RINGER'S 1,000 ML IV SCH ×3 (06:04→19:38)
[2022-12-05] MEDS: GABAPENTIN 600 MG TAB PO SCH ×3 (06:05→20:50)
[2022-12-05] MEDS: oxyCODONE HCL IR 5 MG TAB (IMMEDIATE RELEASE) PO PRN ×3 (07:30→23:25)
[2022-12-05 08:08] LABS: Basophils # (auto) 0.05 K/uL (0-0.2); Basophils % (auto) 1.1 %; Eosinophils # (auto) 0.28 K/uL (0-0.50); Eosinophils % (auto) 6.2 %; Hematocrit (blood only) 38.8 % (42.0-52.0); Hemoglobin 13.8 g/dl (14.0-18.0); Immature Granulocytes # (auto) 0.01 K/uL (0.01-0.20); Immature Granulocytes % (auto) 0.2 %; Lymphocytes # (auto) 1.46 K/uL (1.2-3.4); Lymphocytes % (auto) 32.1 %; Mean Corpuscular Hemoglobin 32.7 pg (25.0-34.0); Mean Corpuscular Hgb Conc 35.6 g/dL (32.0-36.0); Mean Corpuscular Volume 91.9 fL (80.0-100.0); Mean Platelet Volume 9.9 fL (9.4-12.4); Monocytes # (auto) 0.52 K/uL (0.11-0.59); Monocytes % (auto) 11.4 %; Neutrophils # (auto) 2.23 K/uL (1.40-6.50); Platelet Count 157 K/uL (130-400); RDW Coefficient of Variation 11.7 % (11.5-14.5); RDW Standard Deviation 39.3 fL (36.4-46.3); Red Blood Count 4.22 M/uL (4.70-6.10); White Blood Count 4.55 K/ul (4.8-10.8)
[2022-12-05 08:24] LABS: Calcium 8.9 mg/dl (8.6-10.3); Creatinine Clr Calc Pharmacy 142.1 ml/min; Est GFR (African American) 129.2 ml/min; Est GFR (Non-African American) 111.5 ml/min; Magnesium 1.9 mg/dl (1.7-2.4); Potassium 4.2 mmol/L (3.5-5.1)
[2022-12-05] MEDS: APIXABAN 5 MG TABLET PO SCH ×2 (08:27→20:53)
[2022-12-05] MEDS: PARoxetine HCL 20 MG TAB PO SCH (08:27)
[2022-12-05] MEDS: THIAMINE HCL 100 MG TAB PO SCH (08:27)
[2022-12-05] MEDS: FOLIC ACID 1 MG TAB PO SCH (08:27)
--- NOTE | 2022-12-05 09:31 | Pharmacy Report ---
Pharmacy Glycemic Short Note 2 - Date of Service December 05, 2022 - Glycemic Short BSG Results (Last 24 hours): 12/04/22 12/04/22 12/04/22 18:10 18:35 22:51 Glucose 456 H* POC Glucose 439 H* 226 H 12/05/22 12/05/22 12/05/22 02:01 06:02 07:17 Glucose 189 H POC Glucose 161 H 189 H OUTPATIENT ANTIDIABETIC REGIMEN: * n/a -- pt has not been taking any antiDM medications * HbA1c: 10.5% (11/17/22) ASSESSMENT: * Mr Zeng is a 47yo diabetic male, admitted with abdominal pain and hyperglycemia. * PMH includes ADHD, mood disorder, EtOH use, hx narcotic abuse, hx pancreatitis. * Unsure of how long patient has been without any diabetes medications, but pt will likely require meds on discharge. * Pt has been refusing his last few doses of insulin, due to being NPO and fearful of hypoglycemia. * Will continue to follow and adjust regimen as indicated and as pt is willing to comply. PLAN FOR INPATIENT GLYCEMIC CONTROL: * Basal insulin * Lantus 5 units SQ BID * Bolus insulin * NovoLog per scale ACHS or Q6hrs while NPO * Goal Range: Low 110 mg/dL - High 140 mg/dL * Correction Factor: 25 mg/dL/unit * Nutritional / Prandial insulin per carb ratio of 1 unit per 10 grams CHO consumed
[2022-12-05] MEDS: LANTUS PER UNIT CHARGE SQ SCH ×2 (09:37→21:05)
[2022-12-05] MEDS: FAMOTIDINE 20 MG in SYRINGE 3 ML IV SCH ×2 (09:38→20:53)
[2022-12-05 09:45] LABS: Estimated Average Glucose 249 mg/dl; Hemoglobin A1C 10.3 % (4.5-5.6)
[2022-12-05] MEDS: ONDANSETRON INJ 2 MG/ML 2 ML VIAL IV PRN ×2 (12:40→19:34)
[2022-12-05] MEDS: LORazepam 0.5 MG TAB PO PRN (13:11)
--- NOTE | 2022-12-05 17:22 | Hospitalist Progress Note ---
Date of Service December 05, 2022 Assessment & Plan (1) Alcohol withdrawal: (2) Acute hyperglycemia: (3) Pancreatitis: Plan: This is a 47-year-old male, presents with abdominal pain and hyperglycemia. 1. Abdominal pain. Multiple admissions for abdominal pain, alcoholism, pancreatitis /chronic pancreatitis. His lipase level is okay. CT scan was not done because of multiple CAT scans. Possible gastritis. We will place him on Pepcid b.i.d., IV LR 150 mL per hour, IV Dilaudid p.r.n., IV antiemetics. N.p.o. If not improving , consult GI. Currently with abd. pain but not worsening. Discussed outpt follow up w/ GI. Pt wishes to talk to GI while inpt. 2. Hyperglycemia, diabetes not taking any medications.Not in diabetic ketoacidosis. Received IV insulin in the ER. We will continue with Lantus. 5units bid and insulin sliding scale. Continue to follow the blood sugars.Glycemic pharmacy consult. clinical informatics educator consulted. Needs medication at the time of discharge. The patient is not taking any medications at home for diabetes. Says he has glipizide at home but has not started taking it. 3. History of pulmonary embolus, recurrent deep venous thrombosis, on Eliquis. Patient says he is taking his medications. 4. GI bleed? Patient states questionable some small blood in the stools night prior to admission. His hemoglobin is stable here. We will follow stool for Hemoccult as the patient is on Eliquis. 5. Alcoholism. He states he did not drink alcohol for last 1-1/2 weeks. He was tremulous in the ER. Received IV thiamine in the ER. Placed on alcohol withdrawal protocol with IV Ativan p.r.n. P.o. thiamine, p.o. folic acid. Closely monitor for withdrawal. DVT prophylaxis. On Eliquis. DISPOSITION:med tele. Admission and Anticipated Discharge Date Admission Date: December 04, 2022 Subjective Pt seen in follow up of chronic pancreatitis pain, hyperglycemia Laying in bed, in no acute distress, continues to have abdominal pain Interested in trying clear liquid diet no f/c/n/v pt's mother present at the bedside Review of Systems Review of Systems: All systems reviewed & are unremarkable except as noted in Subjective Physical Exam Physical Exam: GENERAL: The patient is of moderate build, not in acute distress. HEENT: Pupils equal, round and reactive to light. Oral mucosa moist. NECK: No JVD. No neck masses. CARDIOVASCULAR: S1 and S2 heard. Regular rate and rhythm. No murmur, no gallop. RESPIRATORY: Normal AP diameter. No accessory muscle use. No wheezing or crackles. ABDOMEN: Soft, bowel sounds present. Diffuse tenderness in upper quadrants, No rigidity. No distention. NEURO: Alert and oriented. Speech is clear. No facial droop. Obeys simple commands. Moves extremities. EXTREMITIES: No edema, no erythema. Results & Data Results & Data Vital Signs (Past 12 Hours) Vital Signs Temp Pulse Pulse Resp BP Pulse Ox O2 Del Method 12/05/22 16:31 36.7 C 83 19 105/68 97 Room Air 12/05/22 14:56 71 12/05/22 12:08 36.4 C L 83 20 120/74 99 Room Air 12/05/22 07:56 74 12/05/22 07:56 36.4 C L 72 20 105/72 99 Room Air Laboratory Results 12/05/22 12/05/22 12/05/22 Range/Units Unknown 17:01 11:46 WBC (4.8-10.8) K/ul RBC (4.70-6.10) M/uL Hgb (14.0-18.0) g/dl Hct (42.0-52.0) % MCV (80.0-100.0) fL MCH (25.0-34.0) pg MCHC (32.0-36.0) g/dL RDW Std Deviation (36.4-46.3) fL RDW Coeff of Gucci (11.5-14.5) % Plt Count (130-400) K/uL MPV (9.4-12.4) fL Immature Gran % (Auto) % Neut % (Auto) % Lymph % (Auto) % Pershing % (Auto) % Eos % (Auto) % Baso % (Auto) % Neut # (Auto) (1.40-6.50) K/uL Lymph # (Auto) (1.2-3.4) K/uL Pershing # (Auto) (0.11-0.59) K/uL Eos # (Auto) (0-0.50) K/uL Baso # (Auto) (0-0.2) K/uL Immature Gran # (Auto) (0.01-0.20) K/uL VBG pH (7.36-7.41) VBG pCO2 (38-50) mmHg VBG pO2 mmHg VBG HCO3 mmol/L VBG O2 Saturation % VBG Base Excess mEq/L Sodium (136-145) mmol/L Potassium Chloride (98-107) mmol/L Carbon Dioxide (21-32) mmol/L Anion Gap (3-11) BUN (6-23) mg/dl Creatinine (0.6-1.4) mg/dl Est Cr Clr Drug Dosing ml/min Est GFR ( Amer) ml/min Est GFR (Non-Af Amer) ml/min BUN/Creatinine Ratio (10-20) Glucose (70-99(Fasting)) mg/dl POC Glucose 275 H 182 H (70-99) mg/dl Estimat Average Glucose mg/dl Hemoglobin A1c (4.5-5.6) % Lactate (0.4-2.0) mmol/L Calcium (8.6-10.3) mg/dl Magnesium (1.7-2.4) mg/dl Total Bilirubin (0.2-1.0) mg/dl Direct Bilirubin AST ALT (7-52) U/L Alkaline Phosphatase (34-104) U/L Troponin I High Sens (0-20) pg/ml Total Protein (6.0-8.3) gm/dl Albumin (3.4-5.0) gm/dl Lipase (11-82) U/L Procalcitonin (0-0.5) ng/ml Urine Color Yellow Urine Appearance Clear (Clear) Urine pH 5.0 (4.5-7.5) Ur Specific [place] 1.038 H (1.000-1.030) Urine Protein Negative (Negative) Urine Glucose (UA) 3+ H (Negative) Urine Ketones 1+ H (Negative) Urine Blood Negative (Negative) Urine Nitrite Negative (Negative) Urine Bilirubin Negative (Negative) Urine Urobilinogen Negative (Negative) Ur Leukocyte Esterase Negative (Negative) SARS-CoV-2, RNA, NAAT (NEGATIVE) 12/05/22 12/05/22 12/05/22 Range/Units 07:17 07:17 07:17 WBC 4.55 L (4.8-10.8) K/ul RBC 4.22 L (4.70-6.10) M/uL Hgb 13.8 L (14.0-18.0) g/dl Hct 38.8 L (42.0-52.0) % MCV 91.9 (80.0-100.0) fL MCH 32.7 (25.0-34.0) pg MCHC 35.6 (32.0-36.0) g/dL RDW Std Deviation 39.3 (36.4-46.3) fL RDW Coeff of Gucci 11.7 (11.5-14.5) % Plt Count 157 (130-400) K/uL MPV 9.9 (9.4-12.4) fL Immature Gran % (Auto) 0.2 % Neut % (Auto) 49.0 % Lymph % (Auto) 32.1 % Pershing % (Auto) 11.4 % Eos % (Auto) 6.2 % Baso % (Auto) 1.1 % Neut # (Auto) 2.23 (1.40-6.50) K/uL Lymph # (Auto) 1.46 (1.2-3.4) K/uL Pershing # (Auto) 0.52 (0.11-0.59) K/uL Eos # (Auto) 0.28 (0-0.50) K/uL Baso # (Auto) 0.05 (0-0.2) K/uL Immature Gran # (Auto) 0.01 (0.01-0.20) K/uL VBG pH (7.36-7.41) VBG pCO2 (38-50) mmHg VBG pO2 mmHg VBG HCO3 mmol/L VBG O2 Saturation % VBG Base Excess mEq/L Sodium 138 (136-145) mmol/L Potassium 4.2 Chloride 107 (98-107) mmol/L Carbon Dioxide 27 (21-32) mmol/L Anion Gap 4 (3-11) BUN 9 (6-23) mg/dl Creatinine 0.69 (0.6-1.4) mg/dl Est Cr Clr Drug Dosing 142.1 ml/min Est GFR ( Amer) 129.2 ml/min Est GFR (Non-Af Amer) 111.5 ml/min BUN/Creatinine Ratio 13.0 (10-20) Glucose 189 H (70-99(Fasting)) mg/dl POC Glucose (70-99) mg/dl Estimat Average Glucose 249 mg/dl Hemoglobin A1c 10.3 H (4.5-5.6) % Lactate (0.4-2.0) mmol/L Calcium 8.9 (8.6-10.3) mg/dl Magnesium 1.9 (1.7-2.4) mg/dl Total Bilirubin (0.2-1.0) mg/dl Direct Bilirubin AST ALT (7-52) U/L Alkaline Phosphatase (34-104) U/L Troponin I High Sens (0-20) pg/ml Total Protein (6.0-8.3) gm/dl Albumin (3.4-5.0) gm/dl Lipase (11-82) U/L Procalcitonin (0-0.5) ng/ml Urine Color Urine Appearance (Clear) Urine pH (4.5-7.5) Ur Specific [place] (1.000-1.030) Urine Protein (Negative) Urine Glucose (UA) (Negative) Urine Ketones (Negative) Urine Blood (Negative) Urine Nitrite (Negative) Urine Bilirubin (Negative) Urine Urobilinogen (Negative) Ur Leukocyte Esterase (Negative) SARS-CoV-2, RNA, NAAT (NEGATIVE) 12/05/22 12/05/22 12/04/22 Range/Units 06:02 02:01 22:51 WBC (4.8-10.8) K/ul RBC (4.70-6.10) M/uL Hgb (14.0-18.0) g/dl Hct (42.0-52.0) % MCV (80.0-100.0) fL MCH (25.0-34.0) pg MCHC (32.0-36.0) g/dL RDW Std Deviation (36.4-46.3) fL RDW Coeff of Gucci (11.5-14.5) % Plt Count (130-400) K/uL MPV (9.4-12.4) fL Immature Gran % (Auto) % Neut % (Auto) % Lymph % (Auto) % Pershing % (Auto) % Eos % (Auto) % Baso % (Auto) % Neut # (Auto) (1.40-6.50) K/uL Lymph # (Auto) (1.2-3.4) K/uL Pershing # (Auto) (0.11-0.59) K/uL Eos # (Auto) (0-0.50) K/uL Baso # (Auto) (0-0.2) K/uL Immature Gran # (Auto) (0.01-0.20) K/uL VBG pH (7.36-7.41) VBG pCO2 (38-50) mmHg VBG pO2 mmHg VBG HCO3 mmol/L VBG O2 Saturation % VBG Base Excess mEq/L Sodium (136-145) mmol/L Potassium Chloride (98-107) mmol/L Carbon Dioxide (21-32) mmol/L Anion Gap (3-11) BUN (6-23) mg/dl Creatinine (0.6-1.4) mg/dl Est Cr Clr Drug Dosing ml/min Est GFR ( Amer) ml/min Est GFR (Non-Af Amer) ml/min BUN/Creatinine Ratio (10-20) Glucose (70-99(Fasting)) mg/dl POC Glucose 189 H 161 H 226 H (70-99) mg/dl Estimat Average Glucose mg/dl Hemoglobin A1c (4.5-5.6) % Lactate (0.4-2.0) mmol/L Calcium (8.6-10.3) mg/dl Magnesium (1.7-2.4) mg/dl Total Bilirubin (0.2-1.0) mg/dl Direct Bilirubin AST ALT (7-52) U/L Alkaline Phosphatase (34-104) U/L Troponin I High Sens (0-20) pg/ml Total Protein (6.0-8.3) gm/dl Albumin (3.4-5.0) gm/dl Lipase (11-82) U/L Procalcitonin (0-0.5) ng/ml Urine Color Urine Appearance (Clear) Urine pH (4.5-7.5) Ur Specific [place] (1.000-1.030) Urine Protein (Negative) Urine Glucose (UA) (Negative) Urine Ketones (Negative) Urine Blood (Negative) Urine Nitrite (Negative) Urine Bilirubin (Negative) Urine Urobilinogen (Negative) Ur Leukocyte Esterase (Negative) SARS-CoV-2, RNA, NAAT (NEGATIVE) 12/04/22 12/04/22 12/04/22 Range/Units 20:32 19:54 18:46 WBC (4.8-10.8) K/ul RBC (4.70-6.10) M/uL Hgb (14.0-18.0) g/dl Hct (42.0-52.0) % MCV (80.0-100.0) fL MCH (25.0-34.0) pg MCHC (32.0-36.0) g/dL RDW Std Deviation (36.4-46.3) fL RDW Coeff of Gucci (11.5-14.5) % Plt Count (130-400) K/uL MPV (9.4-12.4) fL Immature Gran % (Auto) % Neut % (Auto) % Lymph % (Auto) % Pershing % (Auto) % Eos % (Auto) % Baso % (Auto) % Neut # (Auto) (1.40-6.50) K/uL Lymph # (Auto) (1.2-3.4) K/uL Pershing # (Auto) (0.11-0.59) K/uL Eos # (Auto) (0-0.50) K/uL Baso # (Auto) (0-0.2) K/uL Immature Gran # (Auto) (0.01-0.20) K/uL VBG pH (7.36-7.41) VBG pCO2 (38-50) mmHg VBG pO2 mmHg VBG HCO3 mmol/L VBG O2 Saturation % VBG Base Excess mEq/L Sodium (136-145) mmol/L Potassium 4.1 Chloride (98-107) mmol/L Carbon Dioxide (21-32) mmol/L Anion Gap (3-11) BUN (6-23) mg/dl Creatinine (0.6-1.4) mg/dl Est Cr Clr Drug Dosing ml/min Est GFR ( Amer) ml/min Est GFR (Non-Af Amer) ml/min BUN/Creatinine Ratio (10-20) Glucose (70-99(Fasting)) mg/dl POC Glucose (70-99) mg/dl Estimat Average Glucose mg/dl Hemoglobin A1c (4.5-5.6) % Lactate 2.0 2.2 H* (0.4-2.0) mmol/L Calcium (8.6-10.3) mg/dl Magnesium (1.7-2.4) mg/dl Total Bilirubin (0.2-1.0) mg/dl Direct Bilirubin 0.1 AST 27 ALT (7-52) U/L Alkaline Phosphatase (34-104) U/L Troponin I High Sens (0-20) pg/ml Total Protein (6.0-8.3) gm/dl Albumin (3.4-5.0) gm/dl Lipase (11-82) U/L Procalcitonin (0-0.5) ng/ml Urine Color Urine Appearance (Clear) Urine pH (4.5-7.5) Ur Specific [place] (1.000-1.030) Urine Protein (Negative) Urine Glucose (UA) (Negative) Urine Ketones (Negative) Urine Blood (Negative) Urine Nitrite (Negative) Urine Bilirubin (Negative) Urine Urobilinogen (Negative) Ur Leukocyte Esterase (Negative) SARS-CoV-2, RNA, NAAT (NEGATIVE) 12/04/22 12/04/22 12/04/22 Range/Units 18:42 18:35 18:35 WBC (4.8-10.8) K/ul RBC (4.70-6.10) M/uL Hgb (14.0-18.0) g/dl Hct (42.0-52.0) % MCV (80.0-100.0) fL MCH (25.0-34.0) pg MCHC (32.0-36.0) g/dL RDW Std Deviation (36.4-46.3) fL RDW Coeff of Gucci (11.5-14.5) % Plt Count (130-400) K/uL MPV (9.4-12.4) fL Immature Gran % (Auto) % Neut % (Auto) % Lymph % (Auto) % Pershing % (Auto) % Eos % (Auto) % Baso % (Auto) % Neut # (Auto) (1.40-6.50) K/uL Lymph # (Auto) (1.2-3.4) K/uL Pershing # (Auto) (0.11-0.59) K/uL Eos # (Auto) (0-0.50) K/uL Baso # (Auto) (0-0.2) K/uL Immature Gran # (Auto) (0.01-0.20) K/uL VBG pH 7.34 L (7.36-7.41) VBG pCO2 49 (38-50) mmHg VBG pO2 23 mmHg VBG HCO3 26 mmol/L VBG O2 Saturation < 60.0 % VBG Base Excess -0.2 mEq/L Sodium (136-145) mmol/L Potassium Chloride (98-107) mmol/L Carbon Dioxide (21-32) mmol/L Anion Gap (3-11) BUN (6-23) mg/dl Creatinine (0.6-1.4) mg/dl Est Cr Clr Drug Dosing ml/min Est GFR ( Amer) ml/min Est GFR (Non-Af Amer) ml/min BUN/Creatinine Ratio (10-20) Glucose (70-99(Fasting)) mg/dl POC Glucose (70-99) mg/dl Estimat Average Glucose mg/dl Hemoglobin A1c (4.5-5.6) % Lactate (0.4-2.0) mmol/L Calcium (8.6-10.3) mg/dl Magnesium (1.7-2.4) mg/dl Total Bilirubin (0.2-1.0) mg/dl Direct Bilirubin AST ALT (7-52) U/L Alkaline Phosphatase (34-104) U/L Troponin I High Sens (0-20) pg/ml Total Protein (6.0-8.3) gm/dl Albumin (3.4-5.0) gm/dl Lipase (11-82) U/L Procalcitonin < 0.05 (0-0.5) ng/ml Urine Color Urine Appearance (Clear) Urine pH (4.5-7.5) Ur Specific [place] (1.000-1.030) Urine Protein (Negative) Urine Glucose (UA) (Negative) Urine Ketones (Negative) Urine Blood (Negative) Urine Nitrite (Negative) Urine Bilirubin (Negative) Urine Urobilinogen (Negative) Ur Leukocyte Esterase (Negative) SARS-CoV-2, RNA, NAAT NEGATIVE (NEGATIVE) 12/04/22 12/04/22 12/04/22 Range/Units 18:35 18:35 18:10 WBC 5.02 (4.8-10.8) K/ul RBC 4.96 (4.70-6.10) M/uL Hgb 16.4 (14.0-18.0) g/dl Hct 46.1 (42.0-52.0) % MCV 92.9 (80.0-100.0) fL MCH 33.1 (25.0-34.0) pg MCHC 35.6 (32.0-36.0) g/dL RDW Std Deviation 39.8 (36.4-46.3) fL RDW Coeff of Gucci 11.7 (11.5-14.5) % Plt Count 189 (130-400) K/uL MPV 10.0 (9.4-12.4) fL Immature Gran % (Auto) 0.2 % Neut % (Auto) 56.9 % Lymph % (Auto) 25.5 % Pershing % (Auto) 10.4 % Eos % (Auto) 5.8 % Baso % (Auto) 1.2 % Neut # (Auto) 2.86 (1.40-6.50) K/uL Lymph # (Auto) 1.28 (1.2-3.4) K/uL Pershing # (Auto) 0.52 (0.11-0.59) K/uL Eos # (Auto) 0.29 (0-0.50) K/uL Baso # (Auto) 0.06 (0-0.2) K/uL Immature Gran # (Auto) 0.01 (0.01-0.20) K/uL VBG pH (7.36-7.41) VBG pCO2 (38-50) mmHg VBG pO2 mmHg VBG HCO3 mmol/L VBG O2 Saturation % VBG Base Excess mEq/L Sodium 132 L (136-145) mmol/L Potassium TNP Chloride 98 (98-107) mmol/L Carbon Dioxide 24 (21-32) mmol/L Anion Gap 10 (3-11) BUN 15 (6-23) mg/dl Creatinine 0.90 (0.6-1.4) mg/dl Est Cr Clr Drug Dosing 109.0 ml/min Est GFR ( Amer) 115.8 ml/min Est GFR (Non-Af Amer) 99.9 ml/min BUN/Creatinine Ratio 16.7 (10-20) Glucose 456 H* (70-99(Fasting)) mg/dl POC Glucose 439 H* (70-99) mg/dl Estimat Average Glucose mg/dl Hemoglobin A1c (4.5-5.6) % Lactate (0.4-2.0) mmol/L Calcium 10.0 (8.6-10.3) mg/dl Magnesium 2.0 (1.7-2.4) mg/dl Total Bilirubin 0.7 (0.2-1.0) mg/dl Direct Bilirubin TNP AST TNP ALT 29 (7-52) U/L Alkaline Phosphatase 61 (34-104) U/L Troponin I High Sens < 2.3 (0-20) pg/ml Total Protein 8.0 (6.0-8.3) gm/dl Albumin 4.3 (3.4-5.0) gm/dl Lipase 60 (11-82) U/L Procalcitonin (0-0.5) ng/ml Urine Color Urine Appearance (Clear) Urine pH (4.5-7.5) Ur Specific [place] (1.000-1.030) Urine Protein (Negative) Urine Glucose (UA) (Negative) Urine Ketones (Negative) Urine Blood (Negative) Urine Nitrite (Negative) Urine Bilirubin (Negative) Urine Urobilinogen (Negative) Ur Leukocyte Esterase (Negative) SARS-CoV-2, RNA, NAAT (NEGATIVE) Medications Administered Current Inpatient Medications Apixaban (Apixaban 5 Mg Tablet) 5 mg PO BID [facility]OS Stop: 01/03/23 22:40 Last Admin: 12/05/22 08:27 Dose: 5 mg Dextrose (Dextrose 50% 50 Ml Syringe) 25 - 50 ml IV UD PRN; Protocol PRN Reason: Hypoglycemia Protocol Stop: 01/03/23 22:40 Folic Acid (Folic Acid 1 Mg Tab) 1 mg PO QAM [facility] Stop: 01/04/23 08:59 Last Admin: 12/05/22 08:27 Dose: 1 mg Gabapentin (Gabapentin 600 Mg Tab) 600 mg PO Q24H [facility] Stop: 12/08/22 12:01 Gabapentin (Gabapentin 600 Mg Tab) 600 mg PO Q12H [facility] Stop: 12/07/22 12:01 Gabapentin (Gabapentin 600 Mg Tab) 600 mg PO Q8H [facility] Stop: 12/06/22 12:01 Glucagon (Glucagon For Inj 1 Mg Vial) 1 mg SQ UD PRN; Protocol PRN Reason: Hypoglycemia Protocol Stop: 01/03/23 22:40 Glucose (Glucose 10 Tab/Tube) 4 - 8 tab PO UD PRN; Protocol PRN Reason: Hypoglycemia Treatment Stop: 01/03/23 22:40 Glucose (Glucose 40% Gel 15 Gm Tube) 15 - 30 gm PO UD PRN; Protocol PRN Reason: Hypoglycemia Protocol Stop: 01/03/23 22:40 Hydromorphone HCl (Hydromorphone Inj 0.5 Mg/0.5 Ml Syr) 0.5 mg IV Q4H PRN PRN Reason: Severe Pain (Scale 7, 8, 9,10) Stop: 12/18/22 22:40 Last Admin: 12/05/22 13:32 Dose: 0.5 mg Lactated Ringer's (Lr) 1,000 mls @ 150 mls/hr IV .[id number] [facility] Stop: 01/03/23 22:40 Last Admin: 12/05/22 12:49 Dose: 150 mls/hr Famotidine 20 mg/ Syringe 5 mls @ 2.5 mls/min IV BID [facility] Stop: 01/03/23 22:40 Last Admin: 12/05/22 09:38 Dose: 2.5 mls/min Insulin Aspart (Insulin Aspart Per Unit Charge) 0 units SC Q6 [facility] Stop: 01/03/23 22:40 Last Admin: 12/05/22 17:10 Dose: 6 units Insulin Glargine (Lantus Per Unit Charge) 5 units SQ BID [facility] Stop: 01/03/23 22:40 Last Admin: 12/05/22 09:37 Dose: 5 units Lorazepam (Lorazepam 2 Mg/1 Ml Vial) 3 mg IV ONCE PRN; Protocol PRN Reason: EtOH Withdrawal AWSS Score 10+ Lorazepam (Lorazepam 2 Mg/1 Ml Vial) 2 mg IV UD PRN; Protocol PRN Reason: EtOH Withdrawal AWSS Score 8,9 Stop: 01/03/23 22:40 Lorazepam (Lorazepam 2 Mg/1 Ml Vial) 1 mg IV UD PRN; Protocol PRN Reason: EtOH Withdrawal AWSS Score 6,7 Stop: 01/03/23 22:40 Lorazepam (Lorazepam 0.5 Mg Tab) 0.5 mg PO Q6H PRN PRN Reason: Anxiety, tremor Stop: 01/04/23 12:39 Last Admin: 12/05/22 13:11 Dose: 0.5 mg Miscellaneous (Carbohydrates For Hypoglycemia ) 15 - 30 gm PO UD PRN PRN Reason: Hypoglycemia Protocol Stop: 01/03/23 22:40 Miscellaneous Information (Pharmacy Glycemic Mgmt Consult) 1 each N/A UD PRN PRN Reason: Consult Stop: 01/03/23 22:40 Nitroglycerin (Nitroglycerin Sl 0.4 Mg/Tab Tab) 0.4 mg SL UD PRN PRN Reason: Chest Pain Stop: 01/03/23 22:40 Ondansetron HCl (Ondansetron Inj 2 Mg/Ml 2 Ml Vial) 4 mg IV Q6H PRN PRN Reason: Nausea Stop: 01/03/23 22:40 Last Admin: 12/05/22 12:40 Dose: 4 mg Oxycodone HCl (Oxycodone Hcl Ir 5 Mg Tab (Immediate Release)) 5 mg PO Q6H PRN PRN Reason: Moderate Pain (Scale 4, 5, 6) Stop: 12/19/22 06:29 Last Admin: 12/05/22 16:57 Dose: 5 mg Paroxetine HCl ([facility] Hcl 20 Mg Tab) [facility] [place] Stop: 01/04/23 08:59 Last Admin: 12/05/22 08:27 Dose: 20 mg Thiamine HCl (Thiamine Hcl 100 Mg Tab) [facility] [place] Stop: 01/04/23 08:59 Last Admin: 12/05/22 08:27 Dose: 100 mg (1) Alcohol withdrawal Complication of substance-induced condition: uncomplicated Qualified Code(s): F10.930 - Alcohol use, unspecified with withdrawal, uncomplicated (3) Pancreatitis Chronicity: chronic Pancreatitis type: alcohol induced Qualified Code(s): K86.0 - Alcohol-induced chronic pancreatitis
[2022-12-05] MEDS ORDERED: Nursing to Pharmacy Communication SCH (17:45)
[2022-12-06] MEDS: HYDROmorphone INJ 0.5 MG/0.5 ML SYR IV PRN ×6 (01:53→22:18)
[2022-12-06] MEDS: LACTATED RINGER'S 1,000 ML IV SCH ×4 (01:54→21:03)
[2022-12-06] MEDS: LORazepam 0.5 MG TAB PO PRN (02:25)
[2022-12-06] MEDS: GABAPENTIN 600 MG TAB PO SCH ×3 (04:47→23:34)
--- NOTE | 2022-12-06 07:56 | Hospitalist Progress Note ---
Date of Service December 06, 2022 Assessment & Plan (1) Alcohol withdrawal: (2) Acute hyperglycemia: (3) Pancreatitis: Plan: This is a 47-year-old male, presents with abdominal pain and hyperglycemia. 1. Abdominal pain. Multiple admissions for abdominal pain, alcoholism, pancreatitis /chronic pancreatitis. His lipase level is okay. CT scan was not done because of multiple CAT scans. Possible gastritis. On admission started on Pepcid b.i.d., IV LR 150 mL per hour, IV Dilaudid p.r.n., IV antiemetics. Currently with abd. pain, on clear liquid diet GI consulted -added pantoprazole and bentyl 2. Hyperglycemia, diabetes not taking any medications.Not in diabetic ketoacidosis. A1c 10.3% Received IV insulin in the ER. Continue to follow the blood sugars.Glycemic pharmacy consult. telehealth nurse educator consulted. insulin and glipizide while inpt The patient has not been taking any medications at home for diabetes. Says he has glipizide at home but has not started taking it. 3. 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 Patient says he is taking his medications. 4. GI bleed? Patient states questionable some small blood in the stools night prior to admission. His hemoglobin is stable here. We will follow stool for Hemoccult as the patient is on Eliquis. Seen by GI as well. 5. Alcoholism. He states he did not drink alcohol for last 1-1/2 weeks. He was tremulous in the ER. Received IV thiamine in the ER. Placed on alcohol withdrawal protocol with IV Ativan p.r.n. P.o. thiamine, p.o. folic acid. Closely monitor for withdrawal. DVT prophylaxis. On Eliquis. DISPOSITION:med tele. Admission and Anticipated Discharge Date Admission Date: December 04, 2022 Subjective Pt seen in follow up of chronic pancreatitis pain, hyperglycemia Laying in bed, in no acute distress, continues to have abdominal pain Currently clear liquid diet and tolerating w/ some difficulty no f/c/n/v Pt also seen by GI Review of Systems Review of Systems: All systems reviewed & are unremarkable except as noted in Subjective Physical Exam Physical Exam: GENERAL: The patient is of moderate build, not in acute distress. HEENT: NC/AT. Pupils equal, round and reactive to light. Oral mucosa moist. NECK: No JVD. No neck masses. CARDIOVASCULAR: S1 and S2 heard. Regular rate and rhythm. No murmur, no gallop. RESPIRATORY: Normal AP diameter. No accessory muscle use. No wheezing or crackles. ABDOMEN: Soft, bowel sounds present. Diffuse tenderness in upper quadrants, No rigidity. No distention. NEURO: Alert and oriented. Speech is clear. No facial droop. Obeys simple commands. Moves extremities. EXTREMITIES: No edema, no erythema. Results & Data Results & Data Vital Signs (Past 12 Hours) Vital Signs Temp Pulse Pulse Resp BP Pulse Ox O2 Del Method 12/06/22 07:21 63 12/06/22 04:04 36.5 C 70 18 114/79 100 Room Air 12/05/22 21:57 82 12/05/22 23:45 36.7 C 80 18 116/75 99 Room Air 12/05/22 20:00 36.4 C L 74 18 116/75 99 Room Air Laboratory Results 12/06/22 12/06/22 12/05/22 Range/Units 06:26 06:26 23:30 WBC Pending (4.8-10.8) K/ul RBC Pending (4.70-6.10) M/uL Hgb Pending (14.0-18.0) g/dl Hct Pending (42.0-52.0) % MCV Pending (80.0-100.0) fL MCH Pending (25.0-34.0) pg MCHC Pending (32.0-36.0) g/dL RDW Std Deviation (36.4-46.3) fL RDW Coeff of Gucci (11.5-14.5) % Plt Count Pending (130-400) K/uL MPV (9.4-12.4) fL Immature Gran % (Auto) % Neut % (Auto) % Lymph % (Auto) % Borden % (Auto) % Eos % (Auto) % Baso % (Auto) % Neut # (Auto) (1.40-6.50) K/uL Lymph # (Auto) (1.2-3.4) K/uL Borden # (Auto) (0.11-0.59) K/uL Eos # (Auto) (0-0.50) K/uL Baso # (Auto) (0-0.2) K/uL Immature Gran # (Auto) (0.01-0.20) K/uL Sodium Pending (136-145) mmol/L Potassium Pending (3.5-5.1) mmol/L Chloride Pending (98-107) mmol/L Carbon Dioxide Pending (21-32) mmol/L Anion Gap Pending (3-11) BUN Pending (6-23) mg/dl Creatinine Pending (0.6-1.4) mg/dl Est Cr Clr Drug Dosing Pending ml/min Est GFR ( Amer) Pending ml/min Est GFR (Non-Af Amer) Pending ml/min BUN/Creatinine Ratio Pending (10-20) Glucose Pending (70-99(Fasting)) mg/dl POC Glucose (70-99) mg/dl Estimat Average Glucose mg/dl Hemoglobin A1c (4.5-5.6) % Calcium Pending (8.6-10.3) mg/dl Phosphorus Pending Magnesium Pending (1.7-2.4) mg/dl Stool Occult Bld Scrn Negative (Negative) 12/05/22 12/05/22 12/05/22 Range/Units 20:36 17:01 11:46 WBC (4.8-10.8) K/ul RBC (4.70-6.10) M/uL Hgb (14.0-18.0) g/dl Hct (42.0-52.0) % MCV (80.0-100.0) fL MCH (25.0-34.0) pg MCHC (32.0-36.0) g/dL RDW Std Deviation (36.4-46.3) fL RDW Coeff of Gucci (11.5-14.5) % Plt Count (130-400) K/uL MPV (9.4-12.4) fL Immature Gran % (Auto) % Neut % (Auto) % Lymph % (Auto) % Borden % (Auto) % Eos % (Auto) % Baso % (Auto) % Neut # (Auto) (1.40-6.50) K/uL Lymph # (Auto) (1.2-3.4) K/uL Borden # (Auto) (0.11-0.59) K/uL Eos # (Auto) (0-0.50) K/uL Baso # (Auto) (0-0.2) K/uL Immature Gran # (Auto) (0.01-0.20) K/uL Sodium (136-145) mmol/L Potassium (3.5-5.1) mmol/L Chloride (98-107) mmol/L Carbon Dioxide (21-32) mmol/L Anion Gap (3-11) BUN (6-23) mg/dl Creatinine (0.6-1.4) mg/dl Est Cr Clr Drug Dosing ml/min Est GFR ( Amer) ml/min Est GFR (Non-Af Amer) ml/min BUN/Creatinine Ratio (10-20) Glucose (70-99(Fasting)) mg/dl POC Glucose 207 H 275 H 182 H (70-99) mg/dl Estimat Average Glucose mg/dl Hemoglobin A1c (4.5-5.6) % Calcium (8.6-10.3) mg/dl Phosphorus Magnesium (1.7-2.4) mg/dl Stool Occult Bld Scrn (Negative) 12/05/22 12/05/22 12/05/22 Range/Units 07:17 07:17 07:17 WBC 4.55 L (4.8-10.8) K/ul RBC 4.22 L (4.70-6.10) M/uL Hgb 13.8 L (14.0-18.0) g/dl Hct 38.8 L (42.0-52.0) % MCV 91.9 (80.0-100.0) fL MCH 32.7 (25.0-34.0) pg MCHC 35.6 (32.0-36.0) g/dL RDW Std Deviation 39.3 (36.4-46.3) fL RDW Coeff of Gucci 11.7 (11.5-14.5) % Plt Count 157 (130-400) K/uL MPV 9.9 (9.4-12.4) fL Immature Gran % (Auto) 0.2 % Neut % (Auto) 49.0 % Lymph % (Auto) 32.1 % Borden % (Auto) 11.4 % Eos % (Auto) 6.2 % Baso % (Auto) 1.1 % Neut # (Auto) 2.23 (1.40-6.50) K/uL Lymph # (Auto) 1.46 (1.2-3.4) K/uL Borden # (Auto) 0.52 (0.11-0.59) K/uL Eos # (Auto) 0.28 (0-0.50) K/uL Baso # (Auto) 0.05 (0-0.2) K/uL Immature Gran # (Auto) 0.01 (0.01-0.20) K/uL Sodium 138 (136-145) mmol/L Potassium 4.2 (3.5-5.1) mmol/L Chloride 107 (98-107) mmol/L Carbon Dioxide 27 (21-32) mmol/L Anion Gap 4 (3-11) BUN 9 (6-23) mg/dl Creatinine 0.69 (0.6-1.4) mg/dl Est Cr Clr Drug Dosing 142.1 ml/min Est GFR ( Amer) 129.2 ml/min Est GFR (Non-Af Amer) 111.5 ml/min BUN/Creatinine Ratio 13.0 (10-20) Glucose 189 H (70-99(Fasting)) mg/dl POC Glucose (70-99) mg/dl Estimat Average Glucose 249 mg/dl Hemoglobin A1c 10.3 H (4.5-5.6) % Calcium 8.9 (8.6-10.3) mg/dl Phosphorus Magnesium 1.9 (1.7-2.4) mg/dl Stool Occult Bld Scrn (Negative) Medications Administered Current Inpatient Medications Apixaban (Apixaban 5 Mg Tablet) 5 mg PO BID RAMOS Stop: 01/03/23 22:40 Last Admin: 12/05/22 20:53 Dose: 5 mg Dextrose (Dextrose 50% 50 Ml Syringe) 25 - 50 ml IV UD PRN; Protocol PRN Reason: Hypoglycemia Protocol Stop: 01/03/23 22:40 Folic Acid (Folic Acid 1 Mg Tab) 1 mg PO QAM RAMOS Stop: 01/04/23 08:59 Last Admin: 12/05/22 08:27 Dose: 1 mg Gabapentin (Gabapentin 600 Mg Tab) 600 mg PO Q24H [facility] Stop: 12/08/22 12:01 Gabapentin (Gabapentin 600 Mg Tab) 600 mg PO Q12H [facility] Stop: 12/07/22 12:01 Gabapentin (Gabapentin 600 Mg Tab) 600 mg PO Q8H [facility] Stop: 12/06/22 12:01 Last Admin: 12/06/22 04:47 Dose: Not Given Glucagon (Glucagon For Inj 1 Mg Vial) 1 mg SQ UD PRN; Protocol PRN Reason: Hypoglycemia Protocol Stop: 01/03/23 22:40 Glucose (Glucose 10 Tab/Tube) 4 - 8 tab PO UD PRN; Protocol PRN Reason: Hypoglycemia Treatment Stop: 01/03/23 22:40 Glucose (Glucose 40% Gel 15 Gm Tube) 15 - 30 gm PO UD PRN; Protocol PRN Reason: Hypoglycemia Protocol Stop: 01/03/23 22:40 Hydromorphone HCl (Hydromorphone Inj 0.5 Mg/0.5 Ml Syr) 0.5 mg IV Q4H PRN PRN Reason: Severe Pain (Scale 7, 8, 9,10) Stop: 12/18/22 22:40 Last Admin: 12/06/22 06:15 Dose: 0.5 mg Lactated Ringer's (Lr) 1,000 mls @ 150 mls/hr IV .Q6H40M [facility] Stop: 01/03/23 22:40 Last Admin: 12/06/22 01:54 Dose: 150 mls/hr Famotidine 20 mg/ Syringe 5 mls @ 2.5 mls/min IV BID [facility] Stop: 01/03/23 22:40 Last Admin: 12/05/22 20:53 Dose: 2.5 mls/min Insulin Aspart (Insulin Aspart Per Unit Charge) 0 units SC ACHS [facility] Stop: 01/03/23 22:40 Last Admin: 12/05/22 21:04 Dose: 3 units Insulin Glargine (Lantus Per Unit Charge) 5 units SQ BID [facility] Stop: 01/03/23 22:40 Last Admin: 12/05/22 21:05 Dose: 5 units Lorazepam (Lorazepam 2 Mg/1 Ml Vial) 3 mg IV ONCE PRN; Protocol PRN Reason: EtOH Withdrawal AWSS Score 10+ Lorazepam (Lorazepam 2 Mg/1 Ml Vial) 2 mg IV UD PRN; Protocol PRN Reason: EtOH Withdrawal AWSS Score 8,9 Stop: 01/03/23 22:40 Lorazepam (Lorazepam 2 Mg/1 Ml Vial) 1 mg IV UD PRN; Protocol PRN Reason: EtOH Withdrawal AWSS Score 6,7 Stop: 01/03/23 22:40 Lorazepam (Lorazepam 0.5 Mg Tab) 0.5 mg PO Q6H PRN PRN Reason: Anxiety, tremor Stop: 01/04/23 12:39 Last Admin: 12/06/22 02:25 Dose: 0.5 mg Miscellaneous (Carbohydrates For Hypoglycemia ) 15 - 30 gm PO UD PRN PRN Reason: Hypoglycemia Protocol Stop: 01/03/23 22:40 Miscellaneous Information (Pharmacy Glycemic Mgmt Consult) 1 each N/A UD PRN PRN Reason: Consult Stop: 01/03/23 22:40 Nitroglycerin (Nitroglycerin Sl 0.4 Mg/Tab Tab) 0.4 mg SL UD PRN PRN Reason: Chest Pain Stop: 01/03/23 22:40 Ondansetron HCl (Ondansetron Inj 2 Mg/Ml 2 Ml Vial) 4 mg IV Q6H PRN PRN Reason: Nausea Stop: 01/03/23 22:40 Last Admin: 12/05/22 19:34 Dose: 4 mg Oxycodone HCl (Oxycodone Hcl Ir 5 Mg Tab (Immediate Release)) 5 mg PO Q6H PRN PRN Reason: Moderate Pain (Scale 4, 5, 6) Stop: 12/19/22 06:29 Last Admin: 12/05/22 23:25 Dose: 5 mg Paroxetine HCl (Paroxetine Hcl 20 Mg Tab) [facility] [place] Stop: 01/04/23 08:59 Last Admin: 12/05/22 08:27 Dose: 20 mg Thiamine HCl (Thiamine Hcl 100 Mg Tab) 100 mg PO [facility] Stop: 01/04/23 08:59 Last Admin: 12/05/22 08:27 Dose: 100 mg (1) Alcohol withdrawal Complication of substance-induced condition: uncomplicated Qualified Code(s): F10.930 - Alcohol use, unspecified with withdrawal, uncomplicated (3) Pancreatitis Chronicity: chronic Pancreatitis type: alcohol induced Qualified Code(s): K86.0 - Alcohol-induced chronic pancreatitis
[2022-12-06 08:05] LABS: Magnesium 1.8 mg/dl (1.7-2.4); Potassium 3.9 mmol/L (3.5-5.1)
[2022-12-06 08:11] LABS: BUN Creatinine Ratio 4.1 (10-20); Creatinine Clr Calc Pharmacy 134.4 ml/min; Est GFR (African American) 126.2 ml/min; Est GFR (Non-African American) 108.9 ml/min; Phosphorus 3.3 mg/dl (2.5-4.9)
[2022-12-06] MEDS: FOLIC ACID 1 MG TAB PO SCH (08:15)
[2022-12-06] MEDS: PARoxetine HCL 20 MG TAB PO SCH (08:15)
[2022-12-06] MEDS: APIXABAN 5 MG TABLET PO SCH ×2 (08:15→21:02)
[2022-12-06] MEDS: THIAMINE HCL 100 MG TAB PO SCH (08:15)
[2022-12-06] MEDS: oxyCODONE HCL IR 5 MG TAB (IMMEDIATE RELEASE) PO PRN ×2 (08:24→16:54)
[2022-12-06] MEDS: LANTUS PER UNIT CHARGE SQ SCH (08:25)
[2022-12-06] MEDS: INSULIN ASPART PER UNIT CHARGE SC SCH ×5 (08:25→21:04)
[2022-12-06] MEDS: FAMOTIDINE 20 MG in SYRINGE 3 ML IV SCH ×2 (08:25→21:05)
--- NOTE | 2022-12-06 09:11 | Gastrointestinal Consultation ---
Date of Consultation December 06, 2022 Assessment & Plan (1) Acute epigastric pain: 47 year old male with history of chronic pancreatitis, presenting with abd pain, normal lfts and normal lipase, CTAP without any acute findings. 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 Thank you for allowing us to participate in the care of this patient. Please call with any acute changes, questions or concerns. Please see addendum below with additional recommendation from my supervising physician. History of Present Illness Reason for Consultation: chronic pancreatitis pain Requesting Physician: Kaye Attending Physician: Jerome Restrepo MD History of Present Illness 46 year old male w/ history of T2DM, Renae's/GERD on PPI, PE/DVT on Eliquis chronic pancreatitis admitted with abdominal pain. Notes chronic, intermittent p ain. Severe when occurs. Explains pain as epigastric in location. Radiates to back. Is associated with nausea. No vomiting this episodes. Reports GERD is controlled on PPI. Chronic loose stools, suggests 3 times daily. He had an isolated episode of small volume rectal bleeding about 3/4 days ago. No black stools. No fever, chills, CP, SOB. He tells me no ETOH use in 1-2 weeks. Continued tobacco use. Tbili 0.7 AST 27 ALT 33 ALKP 61 Lipase 60 CTAP 2022: Stable sequela of chronic pancreatitis without acute inflammatory changes on this study. Allergies Allergy/AdvReac Type Severity Reaction Status Date / Time No Known Allergies Allergy Verified 12/04/22 21:48 Home Medications Medication Instructions Recorded Confirmed Type paroxetine HCl 20 mg tablet 20 mg PO QAM 12/20/19 12/04/22 History pantoprazole 40 mg tablet,delayed 40 mg PO QAM #30 tabs 03/01/21 12/04/22 Rx release acetaminophen 325 mg capsule 650 mg PO BID PRN Fever Or Pain 08/17/22 12/04/22 History (Tylenol) apixaban 5 mg tablet (Eliquis) 5 mg PO BID 08/17/22 12/04/22 History hydroxyzine pamoate 25 mg capsule 25 mg PO BID PRN Anxiety 10/20/22 12/04/22 History oxycodone 5 mg tablet 5 mg PO Q8H PRN pain #8 tabs 11/19/22 12/04/22 Rx diazepam 10 mg tablet 10 mg PO DIRECTED PRN Anxiety 12/04/22 12/04/22 History Patient History Medical History Abdominal pain Abdominal pain Abdominal pain, acute, epigastric Acute hyperglycemia Alcohol abuse (Unknown) Alcohol abuse Alcohol abuse Alcohol withdrawal Alcoholic ketosis Renae's esophagus (Unknown) "per EGD 11/23/09 " On 05/31/11 09:06 Martinez Jose wrote "per EGD 11/23/09 " Chest pain COVID-19 Depression Depression DM type 2 (diabetes mellitus, type 2) Encounter for alcohol abuse counseling and surveillance Encounter for pre-operative examination Encounter for tobacco use cessation counseling H/O acute pancreatitis "recurrent" History of substance abuse Hyperglycemia Intentional drug overdose Lumbar degenerative disc disease Mood disorder Mood disorder Nausea & vomiting Neuropathy Pancreatic duct stones Pancreatitis Panic disorder Pulmonary embolism on chronic apixaban Retrosternal chest pain Suicidal ideation Suicidal ideation Suicide attempt Surgical History H/O esophagogastroduodenoscopy "EGD 11/23/2009- mild gastritis, suspicious for gastroparesis, Z-line irregular EUS 02/04/2010- mild chronic pancreatitis, pronounced cholesterolosis of gallbladder, no biliary dilation or stones, probable gastroparesis EGD 10/31/2014- gastritis" S/P lumbar fusion L4-S1 2014 Family History Father Alcohol abuse Social History Smoking Status: Never smoker Tobacco Type: Smokeless Tobacco (Dip or Chew) Second Hand Exposure: No; Do You Dip or Chew Tobacco: Yes; Tobacco Cessation Education Requested by Patient: No Hx Alcohol Use: Yes Alcohol type: beer Hx Substance Use: No Preferred Language: Russian Communication Ability: Effective Park Guide Required: No Beliefs That Will Affect Care: None marital status: Current Living Situation: Family Current Living Situation Comment: from home with mother How many Children do You have: 3 Other Information That Helps Us Care for You: No Feels Safe at Home: Yes Safety Concerns: Feels Safe At This Time Assistive Devices: None Review of Systems Review of Systems: All systems reviewed & are unremarkable except as noted in HPI & below Physical Exam Constitutional: WD/WN, vitals as above Neck: trachea midline Respiratory: normal respiratory effort Cardiovascular: Rate/Rhythm: regular rate Gastrointestinal (Abdomen): Inspection/Auscultation: normal bowel sounds Percussion/Palpation: + abdomen tender and abdomen soft; no guarding and abdomen not rigid Skin: no rashes, warm and dry Results & Data Vital Signs (Past 12 Hours) Vital Signs Temp Pulse Pulse Resp BP Pulse Ox O2 Del Method 12/06/22 08:00 36.6 C 69 18 92/55 L 97 Room Air 12/06/22 07:21 63 12/06/22 04:04 36.5 C 70 18 114/79 100 Room Air 12/05/22 21:57 82 12/05/22 23:45 36.7 C 80 18 116/75 99 Room Air
[2022-12-06] MEDS: glipiZIDE ER 2.5 MG TABCR PO SCH (10:06)
[2022-12-06 10:35] LABS: Hematocrit (blood only) 39.9 % (42.0-52.0); Hemoglobin 14.2 g/dl (14.0-18.0); Mean Corpuscular Hemoglobin 32.7 pg (25.0-34.0); Mean Corpuscular Hgb Conc 35.6 g/dL (32.0-36.0); Mean Corpuscular Volume 91.9 fL (80.0-100.0); Mean Platelet Volume 10.6 fL (9.4-12.4); Platelet Count 153 K/uL (130-400); RDW Coefficient of Variation 11.6 % (11.5-14.5); RDW Standard Deviation 39.6 fL (36.4-46.3); Red Blood Count 4.34 M/uL (4.70-6.10); White Blood Count 4.59 K/ul (4.8-10.8)
--- NOTE | 2022-12-06 10:42 | Electrocardiogram Report ---
Test Reason : Blood Pressure : / mmHG Vent. Rate : 111 BPM Atrial Rate : 111 BPM P-R Int : 130 ms QRS Dur : 076 ms QT Int : 328 ms P-R-T Axes : 083 072 054 degrees QTc Int : 446 ms Poor data quality, interpretation may be adversely affected Sinus tachycardia Possible Left atrial enlargement Cannot rule out Anterior infarct (cited on or before 16-NOV-2022) Abnormal ECG When compared with ECG of 16-NOV-2022 22:35, No significant change was found Confirmed by Sukhjinder Enciso ([id number]) on 12/06/2022 10:42:26 AM Referred By: REFERRED SELF Confirmed By:Sukhjinder Enciso
[2022-12-06] MEDS: ONDANSETRON INJ 2 MG/ML 2 ML VIAL IV PRN (10:54)
[2022-12-06] MEDS: PANTOprazole 40 MG TAB PO SCH (10:54)
--- NOTE | 2022-12-06 11:01 | Electrocardiogram Report ---
Test Reason : Blood Pressure : / mmHG Vent. Rate : 085 BPM Atrial Rate : 085 BPM P-R Int : 148 ms QRS Dur : 084 ms QT Int : 372 ms P-R-T Axes : 070 063 050 degrees QTc Int : 442 ms Normal sinus rhythm Normal ECG When compared with ECG of 04-DEC-2022 18:17, (unconfirmed) No significant change was found Confirmed by Sukhjinder Enciso ([id number]) on 12/06/2022 11:00:56 AM Referred By: REFERRED SELF Confirmed By:Sukhjinder Enciso
--- NOTE | 2022-12-06 12:47 | Pharmacy Report ---
Pharmacy Glycemic Short Note 2 - Date of Service December 06, 2022 - Glycemic Short BSG Results (Last 24 hours): 12/05/22 12/05/22 12/06/22 17:01 20:36 06:26 Glucose 224 H POC Glucose 275 H 207 H 12/06/22 12/06/22 08:05 11:54 Glucose POC Glucose 202 H 233 H OUTPATIENT ANTIDIABETIC REGIMEN: * n/a -- pt has not been taking any antiDM medications * HbA1c: 10.5% (11/17/22) ASSESSMENT: 12/06/22: * Per CDE recommendations, plan to transition to glipizide for outpt therapy. * Glipizide ER 5mg PO daily was initiated this morning. Morning dose of Lantus was given in addition, as pt's BSGs have been above goal. Lantus will be held moving forward. * Novolog was adjusted to provide correction only (no CHO coverage). * Will observe patient's BSGs on glipizide prior to discharge. 12/05 * Mr Zeng is a 47yo diabetic male, admitted with abdominal pain and hyperglycemia. * PMH includes ADHD, mood disorder, EtOH use, hx narcotic abuse, hx pancreatitis. * Unsure of how long patient has been without any diabetes medications, but pt will likely require meds on discharge. * Pt has been refusing his last few doses of insulin, due to being NPO and fearful of hypoglycemia. * Will continue to follow and adjust regimen as indicated and as pt is willing to comply. PLAN FOR INPATIENT GLYCEMIC CONTROL: * Glipizide ER 5mg PO daily * Basal insulin * Lantus 5 units SQ BID -- stop after this morning's dose * Bolus insulin * NovoLog per scale ACHS or Q6hrs while NPO * Goal Range: Low 110 mg/dL - High 140 mg/dL * Correction Factor: 25 mg/dL/unit * Nutritional / Prandial insulin: none
[2022-12-06] MEDS: DICYCLOMINE HCL 10 MG CAP PO SCH ×2 (14:14→21:02)
--- NOTE | 2022-12-06 16:44 | Electrocardiogram Report ---
Test Reason : Blood Pressure : / mmHG Vent. Rate : 073 BPM Atrial Rate : 073 BPM P-R Int : 148 ms QRS Dur : 084 ms QT Int : 374 ms P-R-T Axes : 070 046 046 degrees QTc Int : 412 ms Poor data quality, interpretation may be adversely affected Normal sinus rhythm Normal ECG When compared with ECG of 05-DEC-2022 00:06, (unconfirmed) No significant change was found Confirmed by Sukhjinder Enciso ([id number]) on 12/06/2022 4:43:44 PM Referred By: REFERRED SELF Confirmed By:Sukhjinder Enciso
--- NOTE | 2022-12-06 20:06 | Electrocardiogram Report ---
Test Reason : Blood Pressure : / mmHG Vent. Rate : 068 BPM Atrial Rate : 068 BPM P-R Int : 152 ms QRS Dur : 086 ms QT Int : 382 ms P-R-T Axes : 065 050 035 degrees QTc Int : 406 ms Normal sinus rhythm Normal ECG When compared with ECG of 05-DEC-2022 06:20, (unconfirmed) No significant change was found Confirmed by Sukhjinder Enciso ([id number]) on 12/06/2022 8:06:17 PM Referred By: REFERRED SELF Confirmed By:Sukhjinder Enciso
[2022-12-07] MEDS: HYDROmorphone INJ 0.5 MG/0.5 ML SYR IV PRN ×5 (02:24→18:41)
[2022-12-07] MEDS: LACTATED RINGER'S 1,000 ML IV SCH ×4 (02:55→18:13)
[2022-12-07] MEDS: oxyCODONE HCL IR 5 MG TAB (IMMEDIATE RELEASE) PO PRN ×3 (04:27→21:00)
[2022-12-07 06:58] LABS: Hematocrit (blood only) 38.6 % (42.0-52.0); Mean Corpuscular Hemoglobin 33.1 pg (25.0-34.0); Mean Corpuscular Hgb Conc 36.3 g/dL (32.0-36.0); Mean Corpuscular Volume 91.3 fL (80.0-100.0); Mean Platelet Volume 9.5 fL (9.4-12.4); Platelet Count 145 K/uL (130-400); RDW Coefficient of Variation 11.4 % (11.5-14.5); RDW Standard Deviation 38.4 fL (36.4-46.3); Red Blood Count 4.23 M/uL (4.70-6.10); White Blood Count 4.72 K/ul (4.8-10.8)
[2022-12-07 07:19] LABS: BUN Creatinine Ratio 2.9 (10-20); Calcium 9.1 mg/dl (8.6-10.3); Creatinine Clr Calc Pharmacy 142.1 ml/min; Est GFR (African American) 129.2 ml/min; Est GFR (Non-African American) 111.5 ml/min; Magnesium 1.8 mg/dl (1.7-2.4); Phosphorus 3.2 mg/dl (2.5-4.9); Potassium 3.9 mmol/L (3.5-5.1)
[2022-12-07] MEDS: FOLIC ACID 1 MG TAB PO SCH (08:16)
[2022-12-07] MEDS: THIAMINE HCL 100 MG TAB PO SCH (08:16)
[2022-12-07] MEDS: glipiZIDE ER 2.5 MG TABCR PO SCH (08:16)
[2022-12-07] MEDS: PARoxetine HCL 20 MG TAB PO SCH (08:17)
[2022-12-07] MEDS: INSULIN ASPART PER UNIT CHARGE SC SCH ×4 (08:17→21:00)
[2022-12-07] MEDS: PANTOprazole 40 MG TAB PO SCH (08:17)
[2022-12-07] MEDS: APIXABAN 5 MG TABLET PO SCH ×2 (08:17→20:29)
[2022-12-07] MEDS: DICYCLOMINE HCL 10 MG CAP PO SCH ×3 (08:17→20:29)
[2022-12-07] MEDS: FAMOTIDINE 20 MG in SYRINGE 3 ML IV SCH ×2 (08:18→20:57)
[2022-12-07] MEDS ORDERED: LANTUS PER UNIT CHARGE SQ SCH (09:00)
[2022-12-07] MEDS: ONDANSETRON INJ 2 MG/ML 2 ML VIAL IV PRN ×2 (10:31→22:55)
--- NOTE | 2022-12-07 10:47 | Hospitalist Progress Note ---
Date of Service December 07, 2022 Assessment & Plan (1) Alcohol withdrawal: (2) Acute hyperglycemia: (3) Pancreatitis: Plan: This is a 47-year-old male, presents with abdominal pain and hyperglycemia. 1. Abdominal pain. Multiple admissions for abdominal pain, alcoholism, pancreatitis /chronic pancreatitis. His lipase level is okay. CT scan was not done because of multiple CAT scans. Possible gastritis. On admission started on Pepcid b.i.d., IV LR 150 mL per hour, IV Dilaudid p.r.n., IV antiemetics. Currently with abd. pain, on clear liquid diet GI consulted -added pantoprazole and bentyl 2. Hyperglycemia, diabetes not taking any medications.Not in diabetic ketoacidosis. A1c 10.3% Received IV insulin in the ER. Continue to follow the blood sugars.Glycemic pharmacy consult. medical educator consulted. insulin and glipizide while inpt The patient has not been taking any medications at home for diabetes. Says he has glipizide at home but has not started taking it. 3. 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 Patient says he is taking his medications. 4. GI bleed? Patient states questionable some small blood in the stools night prior to admission. His hemoglobin is stable here.Hemoccult negative. Seen by GI as well. 5. Alcoholism. He states he did not drink alcohol for last 1-1/2 weeks. He was tremulous in the ER. Received IV thiamine in the ER. Placed on alcohol withdrawal protocol with IV Ativan p.r.n. P.o. thiamine, p.o. folic acid. Closely monitor for withdrawal. DVT prophylaxis. On Eliquis. DISPOSITION:med tele. Admission and Anticipated Discharge Date Admission Date: December 04, 2022 Subjective Pt seen in follow up of chronic pancreatitis pain, hyperglycemia Laying in bed, continues to have abdominal pain, reports some in lower quadrant as well Yesterday PM pt wanted to advance diet, will go back to clear liquid no f/c/n/v Review of Systems Review of Systems: All systems reviewed & are unremarkable except as noted in Subjective Physical Exam Physical Exam: GENERAL: The patient is of moderate build, not in acute distress. HEENT: NC/AT. Pupils equal, round and reactive to light. Oral mucosa moist. NECK: No JVD. No neck masses. CARDIOVASCULAR: S1 and S2 heard. Regular rate and rhythm. No murmur, no gallop. RESPIRATORY: Normal AP diameter. No accessory muscle use. No wheezing or crackles. ABDOMEN: Soft, bowel sounds present. Diffuse tenderness in upper quadrants, No rigidity. No distention. NEURO: Alert and oriented. Speech is clear. No facial droop. Obeys simple commands. Moves extremities. EXTREMITIES: No edema, no erythema. Results & Data Results & Data Vital Signs (Past 12 Hours) Vital Signs Temp Pulse Pulse Resp BP Pulse Ox O2 Del Method 12/07/22 08:30 36.4 C L 61 16 110/68 98 Room Air 12/07/22 07:18 66 12/07/22 03:00 36.6 C 72 20 102/62 98 Room Air 12/07/22 00:51 69 Laboratory Results 12/07/22 12/07/22 12/07/22 Range/Units 07:35 06:26 06:26 WBC 4.72 L (4.8-10.8) K/ul RBC 4.23 L (4.70-6.10) M/uL Hgb 14.0 (14.0-18.0) g/dl Hct 38.6 L (42.0-52.0) % MCV 91.3 (80.0-100.0) fL MCH 33.1 (25.0-34.0) pg MCHC 36.3 H (32.0-36.0) g/dL RDW Std Deviation 38.4 (36.4-46.3) fL RDW Coeff of Gucci 11.4 L (11.5-14.5) % Plt Count 145 (130-400) K/uL MPV 9.5 (9.4-12.4) fL Sodium 139 (136-145) mmol/L Potassium 3.9 (3.5-5.1) mmol/L Chloride 108 H (98-107) mmol/L Carbon Dioxide 29 (21-32) mmol/L Anion Gap 2 L (3-11) BUN 2 L (6-23) mg/dl Creatinine 0.69 (0.6-1.4) mg/dl Est Cr Clr Drug Dosing 142.1 ml/min Est GFR ( Amer) 129.2 ml/min Est GFR (Non-Af Amer) 111.5 ml/min BUN/Creatinine Ratio 2.9 L (10-20) Glucose 220 H (70-99(Fasting)) mg/dl POC Glucose 205 H (70-99) mg/dl Calcium 9.1 (8.6-10.3) mg/dl Phosphorus 3.2 (2.5-4.9) mg/dl Magnesium 1.8 (1.7-2.4) mg/dl 12/07/22 12/06/22 12/06/22 Range/Units 00:10 20:04 16:48 WBC (4.8-10.8) K/ul RBC (4.70-6.10) M/uL Hgb (14.0-18.0) g/dl Hct (42.0-52.0) % MCV (80.0-100.0) fL MCH (25.0-34.0) pg MCHC (32.0-36.0) g/dL RDW Std Deviation (36.4-46.3) fL RDW Coeff of Gucci (11.5-14.5) % Plt Count (130-400) K/uL MPV (9.4-12.4) fL Sodium (136-145) mmol/L Potassium (3.5-5.1) mmol/L Chloride (98-107) mmol/L Carbon Dioxide (21-32) mmol/L Anion Gap (3-11) BUN (6-23) mg/dl Creatinine (0.6-1.4) mg/dl Est Cr Clr Drug Dosing ml/min Est GFR ( Amer) ml/min Est GFR (Non-Af Amer) ml/min BUN/Creatinine Ratio (10-20) Glucose (70-99(Fasting)) mg/dl POC Glucose 142 H 235 H 175 H (70-99) mg/dl Calcium (8.6-10.3) mg/dl Phosphorus (2.5-4.9) mg/dl Magnesium (1.7-2.4) mg/dl 12/06/22 Range/Units 11:54 WBC (4.8-10.8) K/ul RBC (4.70-6.10) M/uL Hgb (14.0-18.0) g/dl Hct (42.0-52.0) % MCV (80.0-100.0) fL MCH (25.0-34.0) pg MCHC (32.0-36.0) g/dL RDW Std Deviation (36.4-46.3) fL RDW Coeff of Gucci (11.5-14.5) % Plt Count (130-400) K/uL MPV (9.4-12.4) fL Sodium (136-145) mmol/L Potassium (3.5-5.1) mmol/L Chloride (98-107) mmol/L Carbon Dioxide (21-32) mmol/L Anion Gap (3-11) BUN (6-23) mg/dl Creatinine (0.6-1.4) mg/dl Est Cr Clr Drug Dosing ml/min Est GFR ( Amer) ml/min Est GFR (Non-Af Amer) ml/min BUN/Creatinine Ratio (10-20) Glucose (70-99(Fasting)) mg/dl POC Glucose 233 H (70-99) mg/dl Calcium (8.6-10.3) mg/dl Phosphorus (2.5-4.9) mg/dl Magnesium (1.7-2.4) mg/dl Medications Administered Current Inpatient Medications Apixaban (Apixaban 5 Mg Tablet) 5 mg PO BID [facility] Stop: 01/03/23 22:40 Last Admin: 12/07/22 08:17 Dose: 5 mg Dextrose (Dextrose 50% 50 Ml Syringe) 25 - 50 ml IV UD PRN; Protocol PRN Reason: Hypoglycemia Protocol Stop: 01/03/23 22:40 Dicyclomine HCl (Dicyclomine Hcl 10 Mg Cap) 10 mg PO TID [facility] Stop: 01/05/23 13:59 Last Admin: 12/07/22 08:17 Dose: 10 mg Folic Acid (Folic Acid 1 Mg Tab) 1 mg PO QAM [facility] Stop: 01/04/23 08:59 Last Admin: 12/07/22 08:16 Dose: 1 mg Gabapentin (Gabapentin 600 Mg Tab) 600 mg PO Q24H [facility] Stop: 12/08/22 12:01 Gabapentin (Gabapentin 600 Mg Tab) 600 mg PO Q12H [facility] Stop: 12/07/22 12:01 Last Admin: 12/06/22 23:34 Dose: 600 mg Glipizide (Glipizide Er 2.5 Mg Tabcr) 5 mg PO DAILY@0730 [facility] Stop: 01/05/23 08:14 Last Admin: 12/07/22 08:16 Dose: 5 mg Glucagon (Glucagon For Inj 1 Mg Vial) 1 mg SQ UD PRN; Protocol PRN Reason: Hypoglycemia Protocol Stop: 01/03/23 22:40 Glucose (Glucose 10 Tab/Tube) 4 - 8 tab PO UD PRN; Protocol PRN Reason: Hypoglycemia Treatment Stop: 01/03/23 22:40 Glucose (Glucose 40% Gel 15 Gm Tube) 15 - 30 gm PO UD PRN; Protocol PRN Reason: Hypoglycemia Protocol Stop: 01/03/23 22:40 Hydromorphone HCl (Hydromorphone Inj 0.5 Mg/0.5 Ml Syr) 0.5 mg IV Q4H PRN PRN Reason: Severe Pain (Scale 7, 8, 9,10) Stop: 12/18/22 22:40 Last Admin: 12/07/22 10:29 Dose: 0.5 mg Lactated Ringer's (Lr) 1,000 mls @ 150 mls/hr IV .Q6H40M [facility] Stop: 01/03/23 22:40 Last Admin: 12/07/22 04:28 Dose: 150 mls/hr Famotidine 20 mg/ Syringe 5 mls @ 2.5 mls/min IV BID [facility] Stop: 01/03/23 22:40 Last Admin: 12/07/22 08:18 Dose: 2.5 mls/min Insulin Aspart (Insulin Aspart Per Unit Charge) 0 units SC ACHS [facility] Stop: 01/03/23 22:40 Last Admin: 12/07/22 08:17 Dose: 4 units Lorazepam (Lorazepam 2 Mg/1 Ml Vial) 3 mg IV ONCE PRN; Protocol PRN Reason: EtOH Withdrawal AWSS Score 10+ Lorazepam (Lorazepam 2 Mg/1 Ml Vial) 2 mg IV UD PRN; Protocol PRN Reason: EtOH Withdrawal AWSS Score 8,9 Stop: 01/03/23 22:40 Lorazepam (Lorazepam 2 Mg/1 Ml Vial) 1 mg IV UD PRN; Protocol PRN Reason: EtOH Withdrawal AWSS Score 6,7 Stop: 01/03/23 22:40 Lorazepam (Lorazepam 0.5 Mg Tab) 0.5 mg PO Q6H PRN PRN Reason: Anxiety, tremor Stop: 01/04/23 12:39 Last Admin: 12/06/22 02:25 Dose: 0.5 mg Miscellaneous (Carbohydrates For Hypoglycemia ) 15 - 30 gm PO UD PRN PRN Reason: Hypoglycemia Protocol Stop: 01/03/23 22:40 Miscellaneous Information (Pharmacy Glycemic Mgmt Consult) 1 each N/A UD PRN PRN Reason: Consult Stop: 01/03/23 22:40 Nitroglycerin (Nitroglycerin Sl 0.4 Mg/Tab Tab) 0.4 mg SL UD PRN PRN Reason: Chest Pain Stop: 01/03/23 22:40 Ondansetron HCl (Ondansetron Inj 2 Mg/Ml 2 Ml Vial) 4 mg IV Q6H PRN PRN Reason: Nausea Stop: 01/03/23 22:40 Last Admin: 12/07/22 10:31 Dose: 4 mg Oxycodone HCl (Oxycodone Hcl Ir 5 Mg Tab (Immediate Release)) 5 mg PO Q6H PRN PRN Reason: Moderate Pain (Scale 4, 5, 6) Stop: 12/19/22 06:29 Last Admin: 12/07/22 04:27 Dose: 5 mg Pantoprazole Sodium (Pantoprazole 40 Mg Tab) 40 mg PO [facility] Stop: 01/05/23 09:59 Last Admin: 12/07/22 08:17 Dose: 40 mg Paroxetine HCl (Paroxetine Hcl 20 Mg Tab) [facility] [place] Stop: 01/04/23 08:59 Last Admin: 12/07/22 08:17 Dose: 20 mg Thiamine HCl (Thiamine Hcl 100 Mg Tab) 100 mg PO [facility] Stop: 01/04/23 08:59 Last Admin: 12/07/22 08:16 Dose: 100 mg (1) Alcohol withdrawal Complication of substance-induced condition: uncomplicated Qualified Code(s): F10.930 - Alcohol use, unspecified with withdrawal, uncomplicated (3) Pancreatitis Chronicity: chronic Pancreatitis type: alcohol induced Qualified Code(s): K86.0 - Alcohol-induced chronic pancreatitis
[2022-12-07] MEDS: GABAPENTIN 600 MG TAB PO SCH (12:16)
[2022-12-07] MEDS ORDERED: POLYETHYLENE (MIRALAX) 17 GM PACK PO PRN (14:29)
[2022-12-08] MEDS: HYDROmorphone INJ 0.5 MG/0.5 ML SYR IV PRN ×2 (00:48→07:11)
[2022-12-08] MEDS: LACTATED RINGER'S 1,000 ML IV SCH ×2 (00:48→07:10)
[2022-12-08] MEDS: oxyCODONE HCL IR 5 MG TAB (IMMEDIATE RELEASE) PO PRN (03:43)
[2022-12-08] MEDS: PANTOprazole 40 MG TAB PO SCH (08:19)
[2022-12-08] MEDS: PARoxetine HCL 20 MG TAB PO SCH (08:19)
[2022-12-08] MEDS: DICYCLOMINE HCL 10 MG CAP PO SCH (08:19)
[2022-12-08] MEDS: THIAMINE HCL 100 MG TAB PO SCH (08:19)
[2022-12-08] MEDS: APIXABAN 5 MG TABLET PO SCH (08:19)
[2022-12-08] MEDS: FOLIC ACID 1 MG TAB PO SCH (08:20)
[2022-12-08] MEDS: glipiZIDE ER 2.5 MG TABCR PO SCH (08:20)
[2022-12-08] MEDS: INSULIN ASPART PER UNIT CHARGE SC SCH ×2 (08:24→11:00)
[2022-12-08] MEDS: FAMOTIDINE 20 MG in SYRINGE 3 ML IV SCH (08:24)
--- NOTE | 2022-12-08 09:21 | Hospitalist Progress Note ---
Date of Service December 08, 2022 Assessment & Plan (1) Alcohol withdrawal: (2) Acute hyperglycemia: (3) Pancreatitis: Plan: This is a 47-year-old male, presents with abdominal pain and hyperglycemia. 1. Abdominal pain. Multiple admissions for abdominal pain, alcoholism, pancreatitis /chronic pancreatitis. His lipase level is okay. CT scan was not done because of multiple CAT scans. Possible gastritis. On admission started on Pepcid b.i.d., IV LR 150 mL per hour, IV Dilaudid p.r.n., IV antiemetics. Currently with abd. pain, on clear liquid diet GI consulted -added pantoprazole and bentyl 2. Hyperglycemia, diabetes not taking any medications.Not in diabetic ketoacidosis. A1c 10.3% Received IV insulin in the ER. Continue to follow the blood sugars.Glycemic pharmacy consult. material control supervisor consulted. insulin and glipizide while inpt The patient has not been taking any medications at home for diabetes. Says he has glipizide at home but has not started taking it. 3. 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 Patient says he is taking his medications. 4. GI bleed? Patient states questionable some small blood in the stools night prior to admission. His hemoglobin is stable here.Hemoccult negative. Seen by GI as well. 5. Alcoholism. He states he did not drink alcohol for last 1-1/2 weeks. He was tremulous in the ER. Received IV thiamine in the ER. Placed on alcohol withdrawal protocol with IV Ativan p.r.n. P.o. thiamine, p.o. folic acid. Closely monitor for withdrawal. DVT prophylaxis. On Eliquis. DISPOSITION:med tele. Admission and Anticipated Discharge Date Admission Date: December 04, 2022 Subjective Pt seen in follow up of chronic pancreatitis pain, hyperglycemia Laying in bed, continues to have abdominal pain, reports some in lower quadrant as well Yesterday PM pt wanted to advance diet, will go back to clear liquid no f/c/n/v Results & Data Results & Data Vital Signs (Past 12 Hours) Vital Signs Temp Pulse Pulse Resp BP Pulse Ox O2 Del Method 12/08/22 09:12 64 12/08/22 07:55 36.4 C L 65 18 106/64 97 Room Air 12/08/22 04:00 36.6 C 68 18 106/65 97 Room Air 12/07/22 23:35 36.8 C 70 18 110/61 96 Room Air 12/07/22 23:36 77 Medications Administered Current Inpatient Medications Apixaban (Apixaban 5 Mg Tablet) 5 mg PO BID [facility] Stop: 01/03/23 22:40 Last Admin: 12/08/22 08:19 Dose: 5 mg Dextrose (Dextrose 50% 50 Ml Syringe) 25 - 50 ml IV UD PRN; Protocol PRN Reason: Hypoglycemia Protocol Stop: 01/03/23 22:40 Dicyclomine HCl (Dicyclomine Hcl 10 Mg Cap) 10 mg PO TID [facility] Stop: 01/05/23 13:59 Last Admin: 12/08/22 08:19 Dose: 10 mg Folic Acid (Folic Acid 1 Mg Tab) 1 mg PO QAM [facility] Stop: 01/04/23 08:59 Last Admin: 12/08/22 08:20 Dose: 1 mg Gabapentin (Gabapentin 600 Mg Tab) 600 mg PO Q24H [facility] Stop: 12/08/22 12:01 Glipizide (Glipizide Er 2.5 Mg Tabcr) 5 mg PO DAILY@0730 [facility] Stop: 01/05/23 08:14 Last Admin: 12/08/22 08:20 Dose: 5 mg Glucagon (Glucagon For Inj 1 Mg Vial) 1 mg SQ UD PRN; Protocol PRN Reason: Hypoglycemia Protocol Stop: 01/03/23 22:40 Glucose (Glucose 10 Tab/Tube) 4 - 8 tab PO UD PRN; Protocol PRN Reason: Hypoglycemia Treatment Stop: 01/03/23 22:40 Glucose (Glucose 40% Gel 15 Gm Tube) 15 - 30 gm PO UD PRN; Protocol PRN Reason: Hypoglycemia Protocol Stop: 01/03/23 22:40 Hydromorphone HCl (Hydromorphone Inj 0.5 Mg/0.5 Ml Syr) 0.5 mg IV Q6H PRN PRN Reason: Severe Pain (Scale 7, 8, 9,10) Stop: 12/19/22 06:29 Last Admin: 12/08/22 07:11 Dose: 0.5 mg Lactated Ringer's (Lr) 1,000 mls @ 150 mls/hr IV .Q6H40M [facility] Stop: 01/03/23 22:40 Last Admin: 12/08/22 07:10 Dose: 150 mls/hr Famotidine 20 mg/ Syringe 5 mls @ 2.5 mls/min IV BID [facility] Stop: 01/03/23 22:40 Last Admin: 12/08/22 08:24 Dose: 2.5 mls/min Insulin Aspart (Insulin Aspart Per Unit Charge) 0 units SC ACHS [facility] Stop: 01/03/23 22:40 Last Admin: 12/08/22 08:24 Dose: 8 units Lorazepam (Lorazepam 2 Mg/1 Ml Vial) 3 mg IV ONCE PRN; Protocol PRN Reason: EtOH Withdrawal AWSS Score 10+ Lorazepam (Lorazepam 2 Mg/1 Ml Vial) 2 mg IV UD PRN; Protocol PRN Reason: EtOH Withdrawal AWSS Score 8,9 Stop: 01/03/23 22:40 Lorazepam (Lorazepam 2 Mg/1 Ml Vial) 1 mg IV UD PRN; Protocol PRN Reason: EtOH Withdrawal AWSS Score 6,7 Stop: 01/03/23 22:40 Lorazepam (Lorazepam 0.5 Mg Tab) 0.5 mg PO Q6H PRN PRN Reason: Anxiety, tremor Stop: 01/04/23 12:39 Last Admin: 12/06/22 02:25 Dose: 0.5 mg Miscellaneous (Carbohydrates For Hypoglycemia ) 15 - 30 gm PO UD PRN PRN Reason: Hypoglycemia Protocol Stop: 01/03/23 22:40 Miscellaneous Information (Pharmacy Glycemic Mgmt Consult) 1 each N/A UD PRN PRN Reason: Consult Stop: 01/03/23 22:40 Nitroglycerin (Nitroglycerin Sl 0.4 Mg/Tab Tab) 0.4 mg SL UD PRN PRN Reason: Chest Pain Stop: 01/03/23 22:40 Ondansetron HCl (Ondansetron Inj 2 Mg/Ml 2 Ml Vial) 4 mg IV Q6H PRN PRN Reason: Nausea Stop: 01/03/23 22:40 Last Admin: 12/07/22 22:55 Dose: 4 mg Oxycodone HCl (Oxycodone Hcl Ir 5 Mg Tab (Immediate Release)) 5 - 10 mg PO QID PRN PRN Reason: Pain Stop: 12/21/22 20:39 Last Admin: 12/08/22 03:43 Dose: 10 mg Pantoprazole Sodium (Pantoprazole 40 Mg Tab) 40 mg PO [facility] Stop: 01/05/23 09:59 Last Admin: 12/08/22 08:19 Dose: 40 mg Paroxetine HCl (Paroxetine Hcl 20 Mg Tab) 20 mg PO [facility] Stop: 01/04/23 08:59 Last Admin: 12/08/22 08:19 Dose: 20 mg Polyethylene Glycol (Polyethylene (Miralax) 17 Gm Pack) 17 gm PO DAILY PRN PRN Reason: Constipation Stop: 01/06/23 14:28 Thiamine HCl (Thiamine Hcl 100 Mg Tab) 100 mg PO [facility] Stop: 01/04/23 08:59 Last Admin: 12/08/22 08:19 Dose: 100 mg (1) Alcohol withdrawal Complication of substance-induced condition: uncomplicated Qualified Code(s): F10.930 - Alcohol use, unspecified with withdrawal, uncomplicated (3) Pancreatitis Chronicity: chronic Pancreatitis type: alcohol induced Qualified Code(s): K86.0 - Alcohol-induced chronic pancreatitis
[2022-12-08] MEDS ORDERED: oxyCODONE HCL IR 5 MG TAB (IMMEDIATE RELEASE) PO PRN (09:25)
[2022-12-08] MEDS ORDERED: LORazepam 2 MG/1 ML VIAL IV PRN (09:25)
[2022-12-08] MEDS ORDERED: CALCIUM CARBONATE 500 MG CHEWABLE TAB PO PRN (10:28)
[2022-12-08 10:57] VITALS: BP 149/74; PULSE 75; TEMP 97.3; O2SAT 100
[2022-12-08] MEDS ORDERED: GABAPENTIN 600 MG TAB PO SCH (12:00)
--- NOTE | 2022-12-08 14:57 | Discharge Summary ---
Discharge Summary Date of Service December 08, 2022 Notes For Next Care Provider Patient left against medical advice consider outpatient ophthalmology exam smoking and alcohol cessation recommended. per [facility], outpatient EGD/EUS and colonoscopy was recomnended. Medication Changes From Visit No changes were made to typical regimen. Admission HPI Per Admitting Provider HISTORY OF PRESENT ILLNESS: This is a 47-year-old male with past medical history significant for ADHD, mood disorder as per records, history of diabetes. He is currently not taking any medications because Jardiance not working and metformin causing GI symptoms, so he has not taken his medications and he doesn't know that he is on other medications ,, history of GERD, history of Renae's esophagus, history of multiple recurrent admissions for alcoholism and pancreatitis and abdominal pain, history of PE, history of recurrent DVT, currently on Eliquis, he says taking Eliquis regularly, chronic pain, history of narcotic abuse as per records, terminated medical agreement, presents with abdominal pain and high sugars. The patient states that he is not drinking alcohol since last 1-1/2 weeks and since he is not taking his diabetes medications, sugar is running high, he was feeling some blurred visions and also since morning, he developed severe abdominal pain associated with nausea. Last night, he had one episode of vomiting and he was having diarrhea. Couple of hours ago had some chest pain that resolved now . Says abdominal pain causing shortness of breath. Denies any earache, no runny nose, no sore throat. He has occasional dry cough. He thinks he has some pink stools last night. Normal bladder movements. The patient was tremulous in the ER. after a dose of Ativan, tremors improved. Admission Exam Per Admitting Provider PHYSICAL EXAMINATION: GENERAL: The patient is of moderate build, not in acute distress. VITAL SIGNS: Temperature 36.5, pulse 96, respiratory rate 18, blood pressure 120/88, oxygen 100% on room air. HEENT: Pupils equal, round and reactive to light. Oral mucosa moist. NECK: No JVD. No neck masses. CARDIOVASCULAR: S1 and S2 heard. Regular rate and rhythm. No murmur, no gallop. RESPIRATORY SYSTEM: Normal AP diameter. No accessory muscle use. No wheezing or crackles. ABDOMEN: Soft, bowel sounds present. Diffuse tenderness, mild guarding. No rigidity. No distention. CENTRAL NERVOUS SYSTEM: Alert and oriented. Speech is clear. No facial droop. Obeys simple commands. Moves extremities. EXTREMITIES: No edema, no erythema. Principal Dx & Hospital Course #1 = Principal Diagnosis (1) Alcohol withdrawal: (2) Acute hyperglycemia: (3) Acute epigastric pain: (4) Chronic pancreatitis: (5) Tobacco use: (6) Alcohol abuse: (7) DM type 2 (diabetes mellitus, type 2): Plan 47 yo M with uncontrolled diabetes and a history of noncompliance presents with blurred vision and acute on chronic abdominal pain. He has a history of chronic alcoholic pancreatitis and is frequently hospitalized for this issue. Did not appear to have acute pancreatitis this time per notes. He was placed on alcohol withdrawal protocol and was given narcotics including IV dilaudid and high dose oxycodone for his reported abdominal pain. He was also placed on pepcid IV twice daily and placed on bowel rest for a short period. [facility] was consulted and recommended strict alcohol cessation and discontinuation of chewing tobacco. Outpatient EGD/EUS and colonoscopy was recommended. He was placed on a trial of Bentyl 10mg PO TID this admission. Hyperglycemia in diabetes was related to reported noncompliance with medications. He was continued on glipizide and insulin as an inpatient. A1 C of 10.3 reflects poor control overall, and this is what likely contributed to vision changes. Outpatient ophthalmology screening recommended along with increased compliance with his diabetic medications. On day of discharge he left without being seen by the hospitalist first and was not able to be appropriately discharged. He was not in the room when the examiner went in, and then left the room altogether. Despite multiple reports of abdominal pain in the last 24 hours requiring high dose IV dilaudid, oral oxycodone and bentyl as well as indigestion reported requiring PPI, H2 edwin therapy and TUMS, myrna RN found multiple candy wrappers in the trash can. No physical exam was performed and no recommendations were able to be given prior to the patient leaving. Close primary care follow-up was recommended. Discharge Exam not performed as patient left without being seen Updated Medication List Medication Instructions Recorded Confirmed Type paroxetine HCl 20 mg tablet 20 mg PO QAM 12/20/19 12/04/22 History pantoprazole 40 mg tablet,delayed 40 mg PO QAM #30 tabs 03/01/21 12/04/22 Rx release acetaminophen 325 mg capsule 650 mg PO BID PRN Fever Or Pain 08/17/22 12/04/22 History (Tylenol) apixaban 5 mg tablet (Eliquis) 5 mg PO BID 08/17/22 12/04/22 History hydroxyzine pamoate 25 mg capsule 25 mg PO BID PRN Anxiety 10/20/22 12/04/22 History oxycodone 5 mg tablet 5 mg PO Q8H PRN pain #8 tabs 11/19/22 12/04/22 Rx diazepam 10 mg tablet 10 mg PO DIRECTED PRN Anxiety 12/04/22 12/04/22 History Hospital Stay Data Consultations 12/04/22 20:21 ED Decision to Admit Stat 12/05/22 17:07 Consult Gastroenterology Routine Pending Results Patient Have Any Pending Studies at Discharge: No Total Time Total Time Spent Total Time Spent (In Minutes): 60
[2022-12-08] MEDS ORDERED: LANTUS PER UNIT CHARGE SQ SCH (21:00)
[2022-12-09] MEDS ORDERED: PANTOprazole 40 MG TAB PO SCH (09:00)
== END 2022-12-08 14:42 | disposition left against medical advice (07) | DRG 894 ==
LOC: ED 18:05 → SUATTDRO 21:16 → 2N 21:16

== ENCOUNTER 2022-12-18 20:02 | Inpatient (IN) ==
[2022-12-18] MEDS ORDERED: SODIUM CHLORIDE 0.9% 1000ML 1,000 ML IV STA (20:29)
[2022-12-18] MEDS ORDERED: MoRPHine SULFATE 4 MG/ML 1 ML CARP\\VIAL IV PRN (20:29)
[2022-12-18] MEDS ORDERED: KETOROLAC TROMETHAMINE 15 MG/ML VIAL IV STA (20:29)
[2022-12-18] MEDS ORDERED: ONDANSETRON INJ 2 MG/ML 2 ML VIAL IV STA (20:29)
--- NOTE | 2022-12-18 20:34 | Emergency Department Note ---
Impression & Plan Epigastric abdominal pain, Alcohol abuse, Acute hyperglycemia, History of acute pancreatitis ED Provider Note NAME: RIKY MELTON AGE: 47 SEX: M : 1975 ARRIVES VIA: Walk-In INFORMANT: [Patient] ED PROVIDER(S): [Kareem Mchugh MD] CHIEF COMPLAINT: Hyperglycemia, epigastric pain HISTORY OF PRESENT ILLNESS: The patient is a 47-year-old male with a history of alcohol abuse, pancreatitis and diabetes. He was in our facility and left the hospital on the fifth, 9 days ago. He did sign himself out AGAINST MEDICAL ADVICE. The patient states that he has not had any insulin since he left the hospital. He has epigastric pain that he thinks is consistent with his pancreatitis. The pain radiates into his back and chest. There has been no fever, no cough, no urinary complaints. No diarrhea. He has not suffered any recent trauma. At home today, his blood sugar was over 500. PMHx/PSHx: See Below SOCIAL HISTORY: See Below. PHYSICAL EXAM: GENERAL: Patient is in no acute distress. Chewing snuff. HEENT: No acute trauma, normocephalic atraumatic, mucous membranes moist, no nasal congestion. NECK: No stridor, no adenopathy, no meningismus, trachea is midline. LUNGS: Clear to auscultation bilaterally, no wheeze, no rhonchi, breath sounds equal. HEART: Mildly tachycardic, regular rhythm, no murmurs. ABDOMEN: Soft, moderately tender in the epigastrium, no lower abdominal tenderness. No peritonitis. EXTREMITIES: No cyanosis or edema, full range of motion of all the joints without pain or difficulty, no signs for acute trauma. NEUROLOGIC: Oriented x 3, no acute motor or sensory deficits, no focal weakness. SKIN: No rash, no jaundice, no diaphoresis. DIFFERENTIAL DIAGNOSIS: Acute on chronic pancreatitis, dehydration, electrolyte imbalance, viral illness, renal or liver failure, medical noncompliance, alcohol abuse, among others. EMERGENCY DEPARTMENT COURSE/PROCEDURES: Prior/Outside records reviewed: Recent discharge summary. ECG per my interpretation: Indication was epigastric abdominal pain. The ECG shows a normal sinus rhythm with a rate of 94. There is some baseline artifact. There is no ST elevation, no PVCs. The QTc is 457. Continuous Cardiac Monitoring per my interpretation: An order was placed for continuous cardiac monitoring. The monitor shows a rate of 102 with sinus tachycardia. Critical Care Note: I have personally spent 41 minutes of critical care time in the direct management of this patient. This includes bedside care, interpretation of diagnostic studies, and testing, discussion with consultants, patient, and family members, and other required patient management activities. This 41 minutes is in excess of all separately billable procedures. MEDICAL DECISION MAKING: There is no leukocytosis or concerning anemia. There is a normal platelet count. Renal panel showed a low sodium at 129. There was a slight anion gap of 14. CO2 slightly low at 20 suggesting a mild acidosis. Glucose level returned high at nearly 500. Urinalysis did not show infection. COVID test returned negative. Alcohol level returned elevated at 242, this is consistent with his history of alcohol abuse. Chest x-ray per my review did not show mediastinal widening, pneumonia or pneumothorax. ECG showed a normal sinus rhythm, no ischemia. Cardiac enzyme testing x1 was not suggestive of acute cardiac injury. No evidence for pancreatitis by our laboratory testing. On exam, the patient was tender in the epigastrium. He was mildly tachycardic. He was not febrile or toxic Patient received IV saline, 2 L. He received IV morphine for pain, IV Toradol for pain. He received IV Dilaudid for pain. He was given IV Zofran for nausea. Patient received IV insulin for his acute hyperglycemia. He received IV Pepcid and IV Protonix. The patient is currently resting. He does not appear toxic. He is not febrile. He still is complaining of some epigastric abdominal pain. Given the hyperglycemia, the low sodium, the presumed acidosis, I do think hospitalization would be warranted. I did speak with the patient and case management, the on-call hospitalist was consulted. DISPOSITION: Patient's presentation and findings warrant a hospital stay. Past Med/Surg History Medical History Abdominal pain Abdominal pain Abdominal pain, acute, epigastric Acute hyperglycemia Alcohol abuse (Unknown) Alcohol abuse Alcohol abuse Alcohol withdrawal Alcoholic ketosis Renae's esophagus (Unknown) "per EGD 11/23/09 " On 05/31/11 09:06 Martinez Jose wrote "per EGD 11/23/09 " Chest pain COVID-19 Depression Depression DM type 2 (diabetes mellitus, type 2) Encounter for alcohol abuse counseling and surveillance Encounter for pre-operative examination Encounter for tobacco use cessation counseling H/O acute pancreatitis "recurrent" History of substance abuse Hyperglycemia Intentional drug overdose Lumbar degenerative disc disease Mood disorder Mood disorder Nausea & vomiting Neuropathy Pancreatic duct stones Pancreatitis Panic disorder Pulmonary embolism on chronic apixaban Retrosternal chest pain Suicidal ideation Suicidal ideation Suicide attempt Surgical History H/O esophagogastroduodenoscopy "EGD 11/23/2009- mild gastritis, suspicious for gastroparesis, Z-line irregular EUS 02/04/2010- mild chronic pancreatitis, pronounced cholesterolosis of gallbladder, no biliary dilation or stones, probable gastroparesis EGD 10/31/2014- gastritis" S/P lumbar fusion L4-S1 2014 Family History Father Alcohol abuse Social History Smoking Status: Current every day smoker Tobacco Type: Cigarettes Second Hand Exposure: No; Do You Dip or Chew Tobacco: Yes; Hx Alcohol Use: Yes Alcohol type: beer Hx Substance Use: No Preferred Language: Chinese Communication Ability: Effective 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 Beliefs That Will Affect Care: None marital status: Current Living Situation: Family Current Living Situation Comment: from home with mother How many Children do You have: 3 Feels Safe at Home: Yes Assistive Devices: None Allergies Allergies Allergy/AdvReac Type Severity Reaction Status Date / Time No Known Allergies Allergy Verified 12/04/22 21:48 Home Meds Home Medications Medication Instructions Recorded Confirmed paroxetine HCl 20 mg tablet 20 mg PO QAM 12/20/19 12/18/22 acetaminophen 325 mg capsule 650 mg PO BID PRN Fever Or Pain 08/17/22 12/18/22 (Tylenol) apixaban 5 mg tablet (Eliquis) 5 mg PO BID 08/17/22 12/18/22 hydroxyzine pamoate 25 mg capsule 25 - 50 mg PO Q6 PRN Anxiety 10/20/22 12/18/22 diazepam 10 mg tablet 10 mg PO DIRECTED PRN CIWA score 12/04/22 12/18/22 calcium carbonate 200 mg calcium 400 mg PO Q4 PRN as directed 12/18/22 12/18/22 (500 mg) chewable tablet (Tums) gabapentin 300 mg capsule 300 mg PO DAILY 12/18/22 12/18/22 insulin glargine 100 unit/mL (3 20 unit subcut HS 12/18/22 12/18/22 mL) subcutaneous pen (Lantus Solostar U-100 Insulin) insulin lispro 100 unit/mL 0 sliding scale dose subcut UD 12/18/22 12/18/22 subcutaneous solution melatonin 3 mg tablet 3 - 6 mg PO HS 12/18/22 12/18/22 ondansetron HCl 4 mg tablet 4 mg PO Q6 PRN Nausea 12/18/22 12/18/22 Previous Rx's Medication Instructions Recorded pantoprazole 40 mg tablet,delayed 40 mg PO QAM #30 tabs 03/01/21 release oxycodone 5 mg tablet 5 mg PO Q8H PRN pain #8 tabs 11/19/22 Results & Data (ED) Vital Signs Vital Signs - 24 hr 12/18/22 20:12 12/18/22 20:22 Temperature 36.5 C Temperature Source Temporal Artery Scan Pulse Rate 111 H 106 H Respiratory Rate 18 Blood Pressure 138/83 Blood Pressure Mean 101 Pulse Oximetry 97 Oxygen Delivery Method Room Air Sepsis Recent Fever Within 48 Hours No Sepsis New/Unexplained Change in Mental Status No Sepsis Action Taken by Nursing No Action Required Home Medications Current Medication List: was personally reviewed by me Laboratory Data Attestation: I reviewed the patient's lab results. 12/18/22 21:06 12/18/22 21:06 Lab Results 12/18/22 12/18/22 12/18/22 Range/Units 20:42 20:50 21:06 WBC 6.12 (4.8-10.8) K/ul RBC 4.49 L (4.70-6.10) M/uL Hgb 14.7 (14.0-18.0) g/dl Hct 40.2 L (42.0-52.0) % MCV 89.5 (80.0-100.0) fL MCH 32.7 (25.0-34.0) pg MCHC 36.6 H (32.0-36.0) g/dL RDW Std Deviation 36.8 (36.4-46.3) fL RDW Coeff of Gucci 11.4 L (11.5-14.5) % Plt Count 217 (130-400) K/uL MPV 9.4 (9.4-12.4) fL Immature Gran % (Auto) 0.2 % Neut % (Auto) 59.7 % Lymph % (Auto) 27.3 % Kane % (Auto) 6.4 % Eos % (Auto) 5.6 % Baso % (Auto) 0.8 % Neut # (Auto) 3.66 (1.40-6.50) K/uL Lymph # (Auto) 1.67 (1.2-3.4) K/uL Kane # (Auto) 0.39 (0.11-0.59) K/uL Eos # (Auto) 0.34 (0-0.50) K/uL Baso # (Auto) 0.05 (0-0.2) K/uL Immature Gran # (Auto) 0.01 (0.01-0.20) K/uL Sodium (136-145) mmol/L Potassium (3.5-5.1) mmol/L Chloride (98-107) mmol/L Carbon Dioxide (21-32) mmol/L Anion Gap (3-11) BUN (6-23) mg/dl Creatinine (0.6-1.4) mg/dl Est Cr Clr Drug Dosing ml/min Est GFR ( Amer) ml/min Est GFR (Non-Af Amer) ml/min BUN/Creatinine Ratio (10-20) Glucose (70-99(Fasting)) mg/dl POC Glucose 490 H* 442 H* (70-99) mg/dl Calcium (8.6-10.3) mg/dl Total Bilirubin (0.2-1.0) mg/dl AST (13-39) U/L ALT (7-52) U/L Alkaline Phosphatase (34-104) U/L Troponin I High Sens (0-20) pg/ml Total Protein (6.0-8.3) gm/dl Albumin (3.4-5.0) gm/dl Globulin (2.5-4.0) gm/dl Albumin/Globulin Ratio (0.9-2) Lipase (11-82) U/L Urine Color Urine Appearance (Clear) Urine pH (4.5-7.5) Ur Specific [place] (1.000-1.030) Urine Protein (Negative) Urine Glucose (UA) (Negative) Urine Ketones (Negative) Urine Blood (Negative) Urine Nitrite (Negative) Urine Bilirubin (Negative) Urine Urobilinogen (Negative) Ur Leukocyte Esterase (Negative) Ethyl Alcohol mg/dL (<10.0) mg/dl SARS-CoV-2, RNA, NAAT (NEGATIVE) 12/18/22 12/18/22 12/18/22 Range/Units 21:06 21:06 21:10 WBC (4.8-10.8) K/ul RBC (4.70-6.10) M/uL Hgb (14.0-18.0) g/dl Hct (42.0-52.0) % MCV (80.0-100.0) fL MCH (25.0-34.0) pg MCHC (32.0-36.0) g/dL RDW Std Deviation (36.4-46.3) fL RDW Coeff of Gucci (11.5-14.5) % Plt Count (130-400) K/uL MPV (9.4-12.4) fL Immature Gran % (Auto) % Neut % (Auto) % Lymph % (Auto) % Kane % (Auto) % Eos % (Auto) % Baso % (Auto) % Neut # (Auto) (1.40-6.50) K/uL Lymph # (Auto) (1.2-3.4) K/uL Kane # (Auto) (0.11-0.59) K/uL Eos # (Auto) (0-0.50) K/uL Baso # (Auto) (0-0.2) K/uL Immature Gran # (Auto) (0.01-0.20) K/uL Sodium 129 L (136-145) mmol/L Potassium 3.6 (3.5-5.1) mmol/L Chloride 95 L (98-107) mmol/L Carbon Dioxide 20 L (21-32) mmol/L Anion Gap 14 H (3-11) BUN 7 (6-23) mg/dl Creatinine 0.73 (0.6-1.4) mg/dl Est Cr Clr Drug Dosing 134.4 ml/min Est GFR ( Amer) 126.2 ml/min Est GFR (Non-Af Amer) 108.9 ml/min BUN/Creatinine Ratio 9.6 L (10-20) Glucose 480 H* (70-99(Fasting)) mg/dl POC Glucose (70-99) mg/dl Calcium 9.3 (8.6-10.3) mg/dl Total Bilirubin 0.5 (0.2-1.0) mg/dl AST 14 (13-39) U/L ALT 13 (7-52) U/L Alkaline Phosphatase 72 (34-104) U/L Troponin I High Sens 2.4 (0-20) pg/ml Total Protein 7.3 (6.0-8.3) gm/dl Albumin 4.0 (3.4-5.0) gm/dl Globulin 3.3 (2.5-4.0) gm/dl Albumin/Globulin Ratio 1.2 (0.9-2) Lipase 26 (11-82) U/L Urine Color Yellow Urine Appearance Clear (Clear) Urine pH 5.0 (4.5-7.5) Ur Specific [place] 1.009 (1.000-1.030) Urine Protein Negative (Negative) Urine Glucose (UA) 3+ H (Negative) Urine Ketones Negative (Negative) Urine Blood Negative (Negative) Urine Nitrite Negative (Negative) Urine Bilirubin Negative (Negative) Urine Urobilinogen Negative (Negative) Ur Leukocyte Esterase Negative (Negative) Ethyl Alcohol mg/dL 242.2 H (<10.0) mg/dl SARS-CoV-2, RNA, NAAT (NEGATIVE) 12/18/22 Range/Units 21:33 WBC (4.8-10.8) K/ul RBC (4.70-6.10) M/uL Hgb (14.0-18.0) g/dl Hct (42.0-52.0) % MCV (80.0-100.0) fL MCH (25.0-34.0) pg MCHC (32.0-36.0) g/dL RDW Std Deviation (36.4-46.3) fL RDW Coeff of Gucci (11.5-14.5) % Plt Count (130-400) K/uL MPV (9.4-12.4) fL Immature Gran % (Auto) % Neut % (Auto) % Lymph % (Auto) % Kane % (Auto) % Eos % (Auto) % Baso % (Auto) % Neut # (Auto) (1.40-6.50) K/uL Lymph # (Auto) (1.2-3.4) K/uL Kane # (Auto) (0.11-0.59) K/uL Eos # (Auto) (0-0.50) K/uL Baso # (Auto) (0-0.2) K/uL Immature Gran # (Auto) (0.01-0.20) K/uL Sodium (136-145) mmol/L Potassium (3.5-5.1) mmol/L Chloride (98-107) mmol/L Carbon Dioxide (21-32) mmol/L Anion Gap (3-11) BUN (6-23) mg/dl Creatinine (0.6-1.4) mg/dl Est Cr Clr Drug Dosing ml/min Est GFR ( Amer) ml/min Est GFR (Non-Af Amer) ml/min BUN/Creatinine Ratio (10-20) Glucose (70-99(Fasting)) mg/dl POC Glucose (70-99) mg/dl Calcium (8.6-10.3) mg/dl Total Bilirubin (0.2-1.0) mg/dl AST (13-39) U/L ALT (7-52) U/L Alkaline Phosphatase (34-104) U/L Troponin I High Sens (0-20) pg/ml Total Protein (6.0-8.3) gm/dl Albumin (3.4-5.0) gm/dl Globulin (2.5-4.0) gm/dl Albumin/Globulin Ratio (0.9-2) Lipase (11-82) U/L Urine Color Urine Appearance (Clear) Urine pH (4.5-7.5) Ur Specific [place] (1.000-1.030) Urine Protein (Negative) Urine Glucose (UA) (Negative) Urine Ketones (Negative) Urine Blood (Negative) Urine Nitrite (Negative) Urine Bilirubin (Negative) Urine Urobilinogen (Negative) Ur Leukocyte Esterase (Negative) Ethyl Alcohol mg/dL (<10.0) mg/dl SARS-CoV-2, RNA, NAAT NEGATIVE (NEGATIVE) Administered Medications Morphine Sulfate (Morphine Sulfate 4 Mg/Ml 1 Ml Carp\\Vial) 6 mg IV Q15M PRN PRN Reason: Pain Stop: 01/01/23 20:28 Last Admin: 12/18/22 21:22 Dose: 6 mg Documented By: MONIKA Discontinued Medications Sodium Chloride (Nss 1000ml) 1,000 mls @ 999 mls/hr IV .Q1H1M STA Stop: 12/18/22 21:29 Last Infusion: 12/18/22 22:19 Dose: 0 mls/hr Documented By: Admin: 12/18/22 21:10 Dose: 999 mls/hr Documented By: MONIKA Ketorolac Tromethamine (Ketorolac Tromethamine 15 Mg/Ml Vial) 15 mg IV NOW STA Stop: 12/18/22 20:30 Last Admin: 12/18/22 21:14 Dose: 15 mg Documented By: MONIKA Ondansetron HCl (Ondansetron Inj 2 Mg/Ml 2 Ml Vial) 4 mg IV NOW STA Stop: 12/18/22 20:30 Last Admin: 12/18/22 21:12 Dose: 4 mg Documented By: MONIKA Imaging Data Attestation: I personally reviewed and interpreted this imaging study as follows: My Impression: Chest x-ray per my review: There is no pneumonia, pneumothorax or mediastinal widening. Discharge Plan Visit Data Chief Complaint: Hyperglycemia Stated Complaint: HIGH BLOOD SUGAR,GUT PAIN,CHEST PAIN,BACK PAIN ED Provider: Kareem Mchugh Discharge Problem: Epigastric abdominal pain, Alcohol abuse, Acute hyperglycemia, History of acute pancreatitis Patient Disposition: Admitted As Inpatient Condition: Fair Forms Stand Alone Forms: My [facility] Prescriptions Prescriptions: No Action paroxetine HCl 20 mg tablet 20 mg PO QAM pantoprazole 40 mg Tablet,Delayed Release (Dr/Ec) 40 mg PO QAM Qty: 30 0RF acetaminophen [Tylenol] 325 mg capsule 650 mg PO BID PRN (Reason: Fever Or Pain) Eliquis 5 mg tablet 5 mg PO BID hydroxyzine pamoate 25 mg capsule 25 - 50 mg PO Q6 PRN (Reason: Anxiety) oxycodone 5 mg Tablet 5 mg PO Q8H PRN (Reason: pain) Qty: 8 0RF diazepam 10 mg tablet 10 mg PO DIRECTED PRN (Reason: CIWA score) gabapentin 300 mg capsule 300 mg PO DAILY Rx Instructions: taper insulin glargine [Lantus Solostar U-100 Insulin] 100 unit/mL (3 mL) insulin pen 20 unit SUBCUT HS insulin lispro 100 unit/mL solution 0 sliding scale dose subcut UD ondansetron HCl 4 mg tablet 4 mg PO Q6 PRN (Reason: Nausea) melatonin 3 mg tablet 3 - 6 mg PO HS calcium carbonate [Tums] 200 mg calcium (500 mg) tablet,chewable 400 mg PO Q4 PRN (Reason: as directed) Referrals Referrals: Dhiraj Myers DO [Primary Care Provider] -
[2022-12-18 21:27] LABS: Basophils # (auto) 0.05 K/uL (0-0.2); Basophils % (auto) 0.8 %; Eosinophils # (auto) 0.34 K/uL (0-0.50); Eosinophils % (auto) 5.6 %; Hematocrit (blood only) 40.2 % (42.0-52.0); Hemoglobin 14.7 g/dl (14.0-18.0); Immature Granulocytes # (auto) 0.01 K/uL (0.01-0.20); Immature Granulocytes % (auto) 0.2 %; Lymphocytes # (auto) 1.67 K/uL (1.2-3.4); Lymphocytes % (auto) 27.3 %; Mean Corpuscular Hemoglobin 32.7 pg (25.0-34.0); Mean Corpuscular Hgb Conc 36.6 g/dL (32.0-36.0); Mean Corpuscular Volume 89.5 fL (80.0-100.0); Mean Platelet Volume 9.4 fL (9.4-12.4); Monocytes # (auto) 0.39 K/uL (0.11-0.59); Monocytes % (auto) 6.4 %; Neutrophils # (auto) 3.66 K/uL (1.40-6.50); Neutrophils % (auto) 59.7 %; Platelet Count 217 K/uL (130-400); RDW Coefficient of Variation 11.4 % (11.5-14.5); RDW Standard Deviation 36.8 fL (36.4-46.3); Red Blood Count 4.49 M/uL (4.70-6.10); White Blood Count 6.12 K/ul (4.8-10.8)
[2022-12-18 21:28] LABS: Appearance Urine Clear (Clear); Bilirubin Urine Negative (Negative); Blood Urine Negative (Negative); Color Urine Yellow; Glucose Urine UA 3+ (Negative); Ketones Urine Negative (Negative); Leukocyte Esterase Urine Negative (Negative); Nitrite Urine Negative (Negative); Protein Urine Negative (Negative); Specific Gravity Urine 1.009 (1.000-1.030); Urobilinogen Urine Negative (Negative)
[2022-12-18 21:48] LABS: Bilirubin,Total 0.5 mg/dl (0.2-1.0); Calcium 9.3 mg/dl (8.6-10.3); Potassium 3.6 mmol/L (3.5-5.1)
[2022-12-18] MEDS ORDERED: SODIUM CHLORIDE 0.9% 1000ML 1,000 ML IV ONE (21:57)
[2022-12-18] MEDS ORDERED: NovoLIN-R INSULIN PER UNIT CHARGE IV STA (22:08)
[2022-12-18 22:09] LABS: Albumin Globulin Ratio 1.2 (0.9-2); BUN Creatinine Ratio 9.6 (10-20); Creatinine Clr Calc Pharmacy 134.4 ml/min; Est GFR (African American) 126.2 ml/min; Est GFR (Non-African American) 108.9 ml/min; Globulin 3.3 gm/dl (2.5-4.0); Total Protein 7.3 gm/dl (6.0-8.3); Troponin I High Sensitivity 2.4 pg/ml (0-20)
[2022-12-18] MEDS ORDERED: FAMOTIDINE 20MG IV PUSH 20 MG/5 ML SYR IV STA (22:24)
[2022-12-18] MEDS ORDERED: HYDROmorphone INJ 1 MG/ML SYRINGE IV STA (22:24)
[2022-12-18] MEDS ORDERED: PANTOprazole 40 MG in SYRINGE 0 ML IV ONE (22:24)
[2022-12-18] MEDS ORDERED: NSS + 20MEQ KCL 20 MEQ/1,000 ML BAG IV ONE (22:32)
[2022-12-18] MEDS ORDERED: THIAMINE HCL 100 MG in SYRINGE 9 ML IV STA (22:34)
[2022-12-18] MEDS ORDERED: ACETAMINOPHEN 500 MG TAB PO PRN (22:40)
[2022-12-18] MEDS ORDERED: LANTUS PER UNIT CHARGE SQ STA (22:42)
[2022-12-18 22:49] LABS: Partial Thromboplastin Time 28.2 Seconds (21.0-31.0)
[2022-12-18 22:56] LABS: Magnesium 1.9 mg/dl (1.7-2.4)
[2022-12-18] MEDS ORDERED: GABAPENTIN 600 MG TAB PO STA (23:37)
--- NOTE | 2022-12-18 23:39 | History & Physical Report ---
Date of Service December 18, 2022 Assessment & Plan (1) Hyperglycemic crisis in diabetes mellitus: Plan: mild DKA DM2 insulin requiring , suboptimal control as of recent hemoglobin A1c of 10.3 this month Secondary to medical noncompliance LGIB, history of PE/DVT on Eliquis Hemoglobin currently stable alcoholic gastritis Chronic pancreatitis history GERD/Renae's esophagus history of chronic pain, hx narcotic abuse as per records/terminated medication agreement. ADD/mood disorder as per records Medical telemetry IVF, basal bolus insulin, ISS BG goal 110-140, carb count coverage IV insulin if without improvement with subcutaneous insulin Judicious narcotic use given history drug abuse as per records (I told patient I was not comfortable giving him IV narcotic medications given nausea/emesis symptoms.) Continue home PPI for gastritis GI consult Re: Mehdi AUGUSTINE DT precautions, RHETT S protocol basal bolus insulin, ISS BG goal 110-140, carb count coverage, update hemoglobin A1c DVT prophylaxis SCDs Re: Mehdi AUGUSTINE Full code Text document was generated using [employer] voice recognition software. It may contain grammatical or spelling errors. Kindly contact undersigned for clarification of any documentation item in question. History of Present Illness Chief Complaint: Abdominal pain Primary Care Provider: Dhiraj Myres, History is obtained from the patient and records. Medical history is significant for ADD/mood disorder as per records, DM2 insulin requiring, GERD/Renae's esophagus, recurrent alcoholic pancreatitis, hx PE as per records, recurrent DVT on Eliquis, history of chronic pain, hx narcotic abuse as per records/terminated medication agreement, noncompliance as per records. Monthly admissions since October 2022 for abdominal pain in the setting of alcohol abuse. Last confinement December 04-December 08, 2022 for alcohol withdrawal. Patient signed out AGAINST MEDICAL ADVICE because he was waiting too long for hospital provider to discharge him. Patient claims he went to alcohol rehab after leaving the hospital. Patient started drinking again last week. Worsening achy epigastric pain going to his chest the last few days. Transient rectal bleeding without fever, chills as per patient. No unusual shortness of breath. Unable to take home medications at home because he did not have any prescriptions. Blood sugar 480s upon arrival at the ER. IV insulin administered at the ER. IV insulin administered at the ER. MEDICAL HISTORY: As above. SURGERIES: Appendectomy, cholecystectomy, vascular device placement, back surgery FAMILY HISTORY: There is a family history of mood disorder. Alcoholism, heart disease. 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 Allergy/AdvReac Type Severity Reaction Status Date / Time No Known Allergies Allergy Verified 12/04/22 21:48 Home Medications Medication Instructions Recorded Confirmed Type paroxetine HCl 20 mg tablet 20 mg PO QAM 12/20/19 12/18/22 History pantoprazole 40 mg tablet,delayed 40 mg PO QAM #30 tabs 03/01/21 12/18/22 Rx release acetaminophen 325 mg capsule 650 mg PO BID PRN Fever Or Pain 08/17/22 12/18/22 History (Tylenol) apixaban 5 mg tablet (Eliquis) 5 mg PO BID 08/17/22 12/18/22 History hydroxyzine pamoate 25 mg capsule 25 - 50 mg PO Q6 PRN Anxiety 10/20/22 12/18/22 History oxycodone 5 mg tablet 5 mg PO Q8H PRN pain #8 tabs 11/19/22 12/18/22 Rx diazepam 10 mg tablet 10 mg PO DIRECTED PRN CIWA score 12/04/22 12/18/22 History calcium carbonate 200 mg calcium 400 mg PO Q4 PRN as directed 12/18/22 12/18/22 History (500 mg) chewable tablet (Tums) gabapentin 300 mg capsule 300 mg PO DAILY 12/18/22 12/18/22 History insulin glargine 100 unit/mL (3 20 unit subcut HS 12/18/22 12/18/22 History mL) subcutaneous pen (Lantus Solostar U-100 Insulin) insulin lispro 100 unit/mL 0 sliding scale dose subcut UD 12/18/22 12/18/22 History subcutaneous solution melatonin 3 mg tablet 3 - 6 mg PO HS 12/18/22 12/18/22 History ondansetron HCl 4 mg tablet 4 mg PO Q6 PRN Nausea 12/18/22 12/18/22 History Past Med/Surg History Medical History Abdominal pain Abdominal pain Abdominal pain, acute, epigastric Acute hyperglycemia Alcohol abuse (Unknown) Alcohol abuse Alcohol abuse Alcohol withdrawal Alcoholic ketosis Renae's esophagus (Unknown) "per EGD 11/23/09 " On 05/31/11 09:06 Martinez Jose wrote "per EGD 11/23/09 " Chest pain COVID-19 Depression Depression DM type 2 (diabetes mellitus, type 2) Encounter for alcohol abuse counseling and surveillance Encounter for pre-operative examination Encounter for tobacco use cessation counseling H/O acute pancreatitis "recurrent" History of substance abuse Hyperglycemia Intentional drug overdose Lumbar degenerative disc disease Mood disorder Mood disorder Nausea & vomiting Neuropathy Pancreatic duct stones Pancreatitis Panic disorder Pulmonary embolism on chronic apixaban Retrosternal chest pain Suicidal ideation Suicidal ideation Suicide attempt Surgical History H/O esophagogastroduodenoscopy "EGD 11/23/2009- mild gastritis, suspicious for gastroparesis, Z-line irre gular EUS 02/04/2010- mild chronic pancreatitis, pronounced cholesterolosis of gallbladder, no biliary dilation or stones, probable gastroparesis EGD 10/31/2014- gastritis" S/P lumbar fusion L4-S1 2014 Family History Father Alcohol abuse Social History Smoking Status: Never smoker Tobacco Type: Cigarettes Second Hand Exposure: No; Do You Dip or Chew Tobacco: Yes; Hx Alcohol Use: Yes Alcohol type: beer Hx Substance Use: No Preferred Language: [place] Communication Ability: Effective Digital Intern Required: No Beliefs That Will Affect Care: None marital status: Current Living Situation: Family Current Living Situation Comment: from home with mother How many Children do You have: 3 Feels Safe at Home: Yes Assistive Devices: None Review of Systems Review of Systems: As per HPI, all other systems reviewed and negative Physical Exam Physical Exam: GENERAL: Comfortable, alcoholic fetor, no respiratory distress SKIN: Normal color, warm HEENT: Alopecia, pink palpebral conjunctivae, no ptosis, dry buccal mucosa NECK : Supple, short neck, no tenderness CHEST : CTA, no tenderness HEART : Tachycardic, no obvious murmurs ABDOMEN: Some distention, epigastric tenderness EXTREMITIES : No LE swelling, no LE tenderness NEUROLOGIC : Coherent, no facial asymmetry, gait and stance not assessed Results & Data Results & Data Vital Signs (Past 12 Hours) Vital Signs Temp Pulse Pulse Resp BP BP Pulse Ox 05/14/23 23:00 100 H 18 130/79 99 12/18/22 20:22 106 H 12/18/22 20:12 36.5 C 111 H 18 138/83 97 O2 Del Method O2 Flow Rate 12/18/22 23:00 Nasal Cannula 2 12/18/22 20:22 12/18/22 20:12 Room Air Laboratory Results Laboratory Results WBC 6.12 K/ul (4.8-10.8) 12/18/22 21:06 RBC 4.49 M/uL (4.70-6.10) L 12/18/22 21:06 Hgb 14.7 g/dl (14.0-18.0) 12/18/22 21:06 Hct 40.2 % (42.0-52.0) L 12/18/22 21:06 MCV 89.5 fL (80.0-100.0) 12/18/22 21:06 MCH 32.7 pg (25.0-34.0) 12/18/22 21:06 MCHC 36.6 g/dL (32.0-36.0) H 12/18/22 21:06 RDW Std Deviation 36.8 fL (36.4-46.3) 12/18/22 21:06 RDW Coeff of Gucci 11.4 % (11.5-14.5) L 12/18/22 21:06 Plt Count 217 K/uL (130-400) 12/18/22 21:06 MPV 9.4 fL (9.4-12.4) 12/18/22 21:06 Immature Gran % (Auto) 0.2 % 12/18/22 21:06 Neut % (Auto) 59.7 % 12/18/22 21:06 Lymph % (Auto) 27.3 % 12/18/22 21:06 [place] % (Auto) 6.4 % 12/18/22 21:06 Eos % (Auto) 5.6 % 12/18/22 21:06 Baso % (Auto) 0.8 % 12/18/22 21:06 Neut # (Auto) 3.66 K/uL (1.40-6.50) 12/18/22 21:06 Lymph # (Auto) 1.67 K/uL (1.2-3.4) 12/18/22 21:06 [place] # (Auto) 0.39 K/uL (0.11-0.59) 12/18/22 21:06 Eos # (Auto) 0.34 K/uL (0-0.50) 12/18/22 21:06 Baso # (Auto) 0.05 K/uL (0-0.2) 12/18/22 21:06 Immature Gran # (Auto) 0.01 K/uL (0.01-0.20) 12/18/22 21:06 APTT 28.2 Seconds (21.0-31.0) 12/18/22 21:06 PTT Ratio 1.0 12/18/22 21:06 Sodium 129 mmol/L (136-145) L 12/18/22 21:06 Potassium 3.6 mmol/L (3.5-5.1) 12/18/22 21:06 Chloride 95 mmol/L (98-107) L 12/18/22 21:06 Carbon Dioxide 20 mmol/L (21-32) L 12/18/22 21:06 Anion Gap 14 (3-11) H 12/18/22 21:06 BUN 7 mg/dl (6-23) 12/18/22 21:06 Creatinine 0.73 mg/dl (0.6-1.4) 12/18/22 21:06 Est Cr Clr Drug Dosing 134.4 ml/min 12/18/22 21:06 Est GFR ( Amer) 126.2 ml/min 12/18/22 21:06 Est GFR (Non-Af Amer) 108.9 ml/min 12/18/22 21:06 BUN/Creatinine Ratio 9.6 (10-20) L 12/18/22 21:06 Glucose 480 mg/dl (70-99(Fasting)) H* 12/18/22 21:06 POC Glucose 442 mg/dl (70-99) H* 12/18/22 20:50 Osmolality 354 mOsm/kg (280-300) H* 12/18/22 21:06 Calcium 9.3 mg/dl (8.6-10.3) 12/18/22 21:06 Magnesium 1.9 mg/dl (1.7-2.4) 12/18/22 21:06 Total Bilirubin 0.5 mg/dl (0.2-1.0) 12/18/22 21:06 AST 14 U/L (13-39) 12/18/22 21:06 ALT 13 U/L (7-52) 12/18/22 21:06 Alkaline Phosphatase 72 U/L (34-104) 12/18/22 21:06 Troponin I High Sens 2.4 pg/ml (0-20) 12/18/22 21:06 Total Protein 7.3 gm/dl (6.0-8.3) 12/18/22 21:06 Albumin 4.0 gm/dl (3.4-5.0) 12/18/22 21:06 Globulin 3.3 gm/dl (2.5-4.0) 12/18/22 21:06 Albumin/Globulin Ratio 1.2 (0.9-2) 12/18/22 21:06 Lipase 26 U/L (11-82) 12/18/22 21:06 TSH 1.514 uIu/ml (0.300-4.500) 12/18/22 21:06 Urine Color Yellow 12/18/22 21:10 Urine Appearance Clear (Clear) 12/18/22 21:10 Urine pH 5.0 (4.5-7.5) 12/18/22 21:10 Ur Specific [place] 1.009 (1.000-1.030) 12/18/22 21:10 Urine Protein Negative (Negative) 12/18/22 21:10 Urine Glucose (UA) 3+ (Negative) H 12/18/22 21:10 Urine Ketones Negative (Negative) 12/18/22 21:10 Urine Blood Negative (Negative) 12/18/22 21:10 Urine Nitrite Negative (Negative) 12/18/22 21:10 Urine Bilirubin Negative (Negative) 12/18/22 21:10 Urine Urobilinogen Negative (Negative) 12/18/22 21:10 Ur Leukocyte Esterase Negative (Negative) 12/18/22 21:10 Ethyl Alcohol mg/dL 242.2 mg/dl (<10.0) H 12/18/22 21:06 SARS-CoV-2, RNA, NAAT NEGATIVE (NEGATIVE) 12/18/22 21:[address] abdomen pelvis: 1. Normal appendix. 2. Calcifications in the head of the pancreas with atrophy of the pancreas. Dilated main pancreatic duct. Findings are consistent with sequelae of chronic pancreatitis. 3. Diverticulosis, without acute diverticulitis. No small bowel obstruction. No free intraperitoneal air. 4. Wall thickening of the stomach, correlate for gastritis. 5. Cholecystectomy. Chest x-ray as per my interpretation atelectasis
[2022-12-18] MEDS ORDERED: GLUCAGON FOR INJ 1 MG VIAL SQ PRN (23:45)
[2022-12-18] MEDS ORDERED: GLUCOSE 40% GEL 15 GM TUBE PO PRN (23:45)
[2022-12-18] MEDS ORDERED: DEXTROSE 50% 50 ML SYRINGE IV PRN (23:45)
[2022-12-18] MEDS ORDERED: CARBOHYDRATES FOR HYPOGLYCEMIA PO PRN (23:45)
[2022-12-18] MEDS ORDERED: GLUCOSE 10 TAB/TUBE PO PRN (23:45)
[2022-12-18] MEDS ORDERED: Ativan IV Alcohol Withdrawal--Active Protocol IV PRN (23:46)
[2022-12-18] MEDS ORDERED: GABAPENTIN 1200MG ALCOHOL WITHDRAWAL LOAD PO STA (23:46)
[2022-12-18] MEDS ORDERED: LORazepam 2 MG/1 ML VIAL IV PRN ×3 (23:46)
[2022-12-19] MEDS ORDERED: OPTIRAY 320 500ml IV ONE (00:06)
--- NOTE | 2022-12-19 00:20 | CT Scan Report ---
Exam(s): CT ABDOMEN + PELVIS With Contrast IV Amt: 89ml Optiray 320 EXAM: CT Abdomen and Pelvis With Intravenous Contrast CLINICAL HISTORY: Reason for exam: worsening abd pain, lgib. TECHNIQUE: Axial computed tomography images of the abdomen and pelvis with intravenous contrast. Automated exposure control was utilized for the study. A dose lowering technique was utilized adhering to the principles of ALARA. CONTRAST: Patient received 89ml Optiray 320 of IV contrast COMPARISON: No relevant prior studies available. FINDINGS: Lung bases: Unremarkable. No mass. No consolidation. ABDOMEN: Liver: Unremarkable. No mass. Gallbladder and bile ducts: Cholecystectomy. No ductal dilation. Pancreas: Calcifications in the head of the pancreas with atrophy of the pancreas. Dilated main pancreatic duct. Findings are consistent with sequelae of chronic pancreatitis. Spleen: Unremarkable. No splenomegaly. Adrenals: Unremarkable. No mass. Kidneys and ureters: Unremarkable. No hydronephrosis or delayed nephrogram. Stomach and bowel: Diverticulosis, without acute diverticulitis. No small bowel obstruction. No free intraperitoneal air. Wall thickening of the stomach, correlate for gastritis. PELVIS: Appendix: Normal appendix. Bladder: Unremarkable. Normal urinary bladder. Reproductive: Unremarkable as visualized. ABDOMEN and PELVIS: Intraperitoneal space: Unremarkable. No free air. No significant fluid collection. Bones/joints: Degenerative changes of the spine. Posterior lumbar fusion. No acute fracture. No dislocation. Soft tissues: Unremarkable. Vasculature: Atherosclerotic changes of the aorta. Multiple perigastric varices. No abdominal aortic aneurysm. Lymph nodes: Unremarkable. No enlarged lymph nodes. IMPRESSION: 1. Normal appendix. 2. Calcifications in the head of the pancreas with atrophy of the pancreas. Dilated main pancreatic duct. Findings are consistent with sequelae of chronic pancreatitis. 3. Diverticulosis, without acute diverticulitis. No small bowel obstruction. No free intraperitoneal air. 4. Wall thickening of the stomach, correlate for gastritis. 5. Cholecystectomy. Electronically signed by: Jeff Alamo MD 12/19/22 00:19 AM
[2022-12-19] MEDS: oxyCODONE HCL IR 5 MG TAB (IMMEDIATE RELEASE) PO PRN ×5 (00:27→22:49)
[2022-12-19] MEDS: INSULIN ASPART PER UNIT CHARGE SC SCH ×6 (00:34→21:34)
[2022-12-19 00:53] LABS: Hematocrit (blood only) 42.3 % (42.0-52.0); Hemoglobin 15.2 g/dl (14.0-18.0)
[2022-12-19 01:02] LABS: BUN Creatinine Ratio 9.4 (10-20); Calcium 8.9 mg/dl (8.6-10.3); Creatinine Clr Calc Pharmacy 153.2 ml/min; Est GFR (African American) 133.3 ml/min; Potassium 3.2 mmol/L (3.5-5.1)
[2022-12-19] MEDS ORDERED: MELATONIN 3 MG TAB PO PRN (02:41)
[2022-12-19 04:38] LABS: Basophils # (auto) 0.03 K/uL (0-0.2); Basophils % (auto) 0.6 %; Eosinophils # (auto) 0.17 K/uL (0-0.50); Eosinophils % (auto) 3.2 %; Hematocrit (blood only) 40.3 % (42.0-52.0); Hemoglobin 14.3 g/dl (14.0-18.0); Immature Granulocytes # (auto) 0.01 K/uL (0.01-0.20); Immature Granulocytes % (auto) 0.2 %; Lymphocytes % (auto) 24.4 %; Mean Corpuscular Hemoglobin 32.9 pg (25.0-34.0); Mean Corpuscular Hgb Conc 35.5 g/dL (32.0-36.0); Mean Corpuscular Volume 92.9 fL (80.0-100.0); Mean Platelet Volume 9.1 fL (9.4-12.4); Monocytes # (auto) 0.55 K/uL (0.11-0.59); Monocytes % (auto) 10.3 %; Neutrophils # (auto) 3.26 K/uL (1.40-6.50); Neutrophils % (auto) 61.3 %; Platelet Count 185 K/uL (130-400); RDW Coefficient of Variation 11.4 % (11.5-14.5); RDW Standard Deviation 39.2 fL (36.4-46.3); Red Blood Count 4.34 M/uL (4.70-6.10); White Blood Count 5.32 K/ul (4.8-10.8)
[2022-12-19 04:54] LABS: BUN Creatinine Ratio 8.2 (10-20); Calcium 8.5 mg/dl (8.6-10.3); Creatinine Clr Calc Pharmacy 160.8 ml/min; Est GFR (African American) 135.9 ml/min; Est GFR (Non-African American) 117.3 ml/min; Potassium 4.2 mmol/L (3.5-5.1)
[2022-12-19] MEDS ORDERED: LACTATED RINGER'S 1,000 ML IV ONE (05:41)
[2022-12-19] MEDS: GABAPENTIN 600 MG TAB PO SCH ×3 (06:00→21:34)
[2022-12-19] MEDS ORDERED: PROMETHAZINE 12.5 MG/50.5 ML NSS IV ONE (07:34)
--- NOTE | 2022-12-19 07:45 | XRay Report ---
SINGLE VIEW CHEST CLINICAL HISTORY: Atypical chest pain. FINDINGS: 2 AP, portable, upright chest radiographs are compared to chest x-ray and chest CT dated . The cardiomediastinal silhouette is unremarkable. The lungs and pleural spaces are clear not ing mild bibasilar atelectasis. No pneumothorax is seen. The bony thorax is grossly intact. IMPRESSION: No active disease in the chest. ACT 112: Negative or not required by law. Electronically signed by: Kareem Rivas M.D. 12/19/2022 7:43 AM
[2022-12-19] MEDS: PROMETHAZINE HCL 12.5 MG in SODIUM CHLORIDE 0.9% 50 ML IV PRN ×2 (07:47→14:14)
[2022-12-19 08:24] LABS: Estimated Average Glucose 243 mg/dl; Hemoglobin A1C 10.1 % (4.5-5.6)
[2022-12-19] MEDS ORDERED: PANTOprazole 40 MG TAB PO SCH (09:00)
--- NOTE | 2022-12-19 09:36 | Gastrointestinal Consultation ---
Date of Consultation December 19, 2022 Assessment & Plan (1) Epigastric abdominal pain: 47 year old male with history of chronic pancreatitis, presenting with abd pain, normal lfts and normal lipase, CTAP with gastritis - Can add liquid Carafate four times daily x 10 days - manager terminal ETOH avoidance encouraged - Discontinuation of chewing tobacco - LR for IVF maintenance - Can continue clear liquids, advance to low fat diet as tolerated - Anti-emetics PRN - Plan for OP EGD/EUS - Plan for OP colonoscopy - Continue PPI - Trial of Bentyl 10 mg three times daily Recall as needed. Thank you for allowing us to participate in the care of this patient. Please call with any acute changes, questions or concerns. Please see addendum below with additional recommendation from my supervising physician. Supervising Physician Co-Signing Physician Notes I personally saw and evaluated the patient on 12/19/2022 with SHAWN Ray and agree with her findings and plan of care. 47 y/o M with history of alcohol abuse drinking 9-12 beers daily prior to admission with chronic pancreatitis, DM2, mcclure's esophagus, PE/DVT on Eliquis who presented with worsening abdominal pain. All imaging and labs have been unremarkable with no evidence of acute on chronic pancreatitis. This is likely just worsening pain related to his underlying chronic pancreatitis. On physical exam he is diffusely tender to palpation worst in the epigastric region however on distraction his pain is minimal. At this time recommend supportive care by primary team. Would add Creon with meals and snacks as he reports his pain is exacerbated by eating and he is not on pancreatic enzymes at home. He already has an outpatient EGD/EUS and colonoscopy scheduled in March. He has missed 2 previous endoscopies and I encouraged him to keep these appointments. I discussed with him need for alcohol abstinence moving forward and that he should consider alcohol rehab which he states he has done 7 times in the past (was able to stay sober for 4 years foll owing one of these). PPI 40 mg BID. Advance diet as tolerated. Will defer pain management to primary team (consider outpatient pain management referral to consider celiac plexus block given chronic abdominal pain). GI will sign off. Please call back with questions. Yue Pena DO Gastroenterology and Hepatology History of Present Illness Reason for Consultation: abd pain Requesting Physician: Kaye Attending Physician: Jerome Restrepo MD History of Present Illness 47 year old male w/ history of T2DM, Mcclure's/GERD on PPI, PE/DVT on Eliquis chronic pancreatitis admitted with abdominal pain. Of note, to have OP EGD/EUS and colonoscopy. Pt notes that since last admission/discharge he resumed ETOH use. Suggests 10-12 beers daily. No liquid. Suggestst hat yesterday around 2, developed severe abd pain with nausea/vomiting. No black or bloody emesis. No change in bowel habits. No black or bloody stools. Weight stable. No fever, chills, CP, SOB. CTAP 2022: . Normal appendix. Calcifications in the head of the pancreas with atrophy of the pancreas. Dilated main pancreatic duct. Findings are consistent with sequelae of chronic pancreatitis.Diverticulosis, without acute diverticulitis. No small bowel obstruction. No free intraperitoneal air.Wall thickening of the stomach, correlate for gastritis. Cholecystectomy. Allergies Allergy/AdvReac Type Severity Reaction Status Date / Time No Known Allergies Allergy Verified 12/04/22 21:48 Home Medications Medication Instructions Recorded Confirmed Type paroxetine HCl 20 mg tablet 20 mg PO QAM 12/20/19 12/18/22 History pantoprazole 40 mg tablet,delayed 40 mg PO QAM #30 tabs 03/01/21 12/18/22 Rx release acetaminophen 325 mg capsule 650 mg PO BID PRN Fever Or Pain 08/17/22 12/18/22 History (Tylenol) apixaban 5 mg tablet (Eliquis) 5 mg PO BID 08/17/22 12/18/22 History hydroxyzine pamoate 25 mg capsule 25 - 50 mg PO Q6 PRN Anxiety 10/20/22 12/18/22 History oxycodone 5 mg tablet 5 mg PO Q8H PRN pain #8 tabs 11/19/22 12/18/22 Rx diazepam 10 mg tablet 10 mg PO DIRECTED PRN CIWA score 12/04/22 12/18/22 History calcium carbonate 200 mg calcium 400 mg PO Q4 PRN as directed 12/18/22 12/18/22 History (500 mg) chewable tablet (Tums) gabapentin 300 mg capsule 300 mg PO DAILY 12/18/22 12/18/22 History insulin glargine 100 unit/mL (3 20 unit subcut HS 12/18/22 12/18/22 History mL) subcutaneous pen (Lantus Solostar U-100 Insulin) insulin lispro 100 unit/mL 0 sliding scale dose subcut UD 12/18/22 12/18/22 History subcutaneous solution melatonin 3 mg tablet 3 - 6 mg PO HS 12/18/22 12/18/22 History ondansetron HCl 4 mg tablet 4 mg PO Q6 PRN Nausea 12/18/22 12/18/22 History Patient History Medical History Abdominal pain Abdominal pain Abdominal pain, acute, epigastric Acute hyperglycemia Alcohol abuse (Unknown) Alcohol abuse Alcohol abuse Alcohol withdrawal Alcoholic ketosis Mcclure's esophagus (Unknown) "per EGD 11/23/09 " On 05/31/11 09:06 Martinez Jose wrote "per EGD 11/23/09 " Chest pain COVID-19 Depression Depression DM type 2 (diabetes mellitus, type 2) Encounter for alcohol abuse counseling and surveillance Encounter for pre-operative examination Encounter for tobacco use cessation counseling H/O acute pancreatitis "recurrent" History of substance abuse Hyperglycemia Intentional drug overdose Lumbar degenerative disc disease Mood disorder Mood disorder Nausea & vomiting Neuropathy Pancreatic duct stones Pancreatitis Panic disorder Pulmonary embolism on chronic apixaban Retrosternal chest pain Suicidal ideation Suicidal ideation Suicide attempt Surgical History H/O esophagogastroduodenoscopy "EGD 11/23/2009- mild gastritis, suspicious for gastroparesis, Z-line irregular EUS 02/04/2010- mild chronic pancreatitis, pronounced cholesterolosis of gallbladder, no biliary dilation or stones, probable gastroparesis EGD 10/31/2014- gastritis" S/P lumbar fusion L4-S1 2014 Family History Father Alcohol abuse Social History Smoking Status: Never smoker Tobacco Type: Cigarettes Second Hand Exposure: No; Do You Dip or Chew Tobacco: Yes; Hx Alcohol Use: Yes Alcohol type: beer Hx Substance Use: No Preferred Language: Syriac Communication Ability: Effective Welder Fitter Required: No Beliefs That Will Affect Care: None marital status: Current Living Situation: Family Current Living Situation Comment: from home with mother How many Children do You have: 3 Feels Safe at Home: Yes Assistive Devices: None Review of Systems Review of Systems: All systems reviewed & are unremarkable except as noted in HPI & below Physical Exam Constitutional: WD/WN, vitals as above Respiratory: normal respiratory effort, lungs clear to auscultation Cardiovascular: Rate/Rhythm: regular rate Gastrointestinal (Abdomen): normal bowel sounds, soft, nontender, no hepatosplenomegaly Skin: no rashes, warm and dry Results & Data Vital Signs (Past 12 Hours) Vital Signs Temp Pulse Pulse Pulse Resp BP BP 12/19/22 08:43 36.6 C 60 18 125/75 12/19/22 08:00 59 L 4 L 12/19/22 08:00 116/71 12/19/22 07:30 66 3 L 12/19/22 07:30 102/73 12/19/22 07:00 63 6 L 12/19/22 07:00 103/71 12/19/22 06:30 63 12 12/19/22 06:30 110/69 12/19/22 06:00 77 22 12/19/22 06:00 128/80 12/19/22 05:30 68 13 12/19/22 05:30 103/68 12/19/22 05:00 66 1 L 12/19/22 05:00 105/69 12/19/22 04:30 92 H 17 12/19/22 04:30 115/77 12/19/22 04:00 67 9 L 12/19/22 04:00 99/63 L 12/19/22 03:30 92 H 14 12/19/22 03:30 110/68 12/19/22 03:00 95 H 17 12/19/22 03:00 108/69 12/19/22 02:30 90 5 L 12/19/22 02:30 94/69 L 12/19/22 02:00 97 H 6 L 12/19/22 02:00 109/69 12/19/22 01:30 93 H 21 12/19/22 01:30 104/63 12/19/22 01:00 98 H 11 L 12/19/22 01:00 110/69 12/19/22 00:32 96 H 22 12/19/22 00:31 111/78 05/14/23 23:59 105 H 15 12/18/22 23:30 111 H 20 12/18/22 23:30 144/86 H 12/18/22 23:00 108 H 18 12/18/22 23:00 130/79 12/18/22 22:30 90 15 12/18/22 22:30 120/84 12/18/22 22:00 101 H 21 12/18/22 22:00 128/82 12/19/22 07:00 64 16 12/19/22 06:57 74 12/19/22 06:30 65 18 12/19/22 04:00 36.7 C 67 18 12/19/22 03:00 68 12/19/22 02:00 98 H 16 12/19/22 00:31 36.7 C 90 18 12/18/22 23:00 100 H 18 BP Pulse Ox O2 Del Method O2 Flow Rate 12/19/22 08:43 98 Room Air 12/19/22 08:00 96 12/19/22 08:00 12/19/22 07:30 96 12/19/22 07:30 12/19/22 07:00 95 12/19/22 07:00 12/19/22 06:30 97 12/19/22 06:30 12/19/22 06:00 98 12/19/22 06:00 12/19/22 05:30 95 12/19/22 05:30 12/19/22 05:00 96 12/19/22 05:00 12/19/22 04:30 96 12/19/22 04:30 12/19/22 04:00 94 12/19/22 04:00 12/19/22 03:30 95 12/19/22 03:30 12/19/22 03:00 97 12/19/22 03:00 12/19/22 02:30 93 12/19/22 02:30 12/19/22 02:00 92 12/19/22 02:00 12/19/22 01:30 93 12/19/22 01:30 12/19/22 01:00 95 12/19/22 01:00 12/19/22 00:32 96 12/19/22 00:31 12/18/22 23:59 100 12/18/22 23:30 99 12/18/22 23:30 12/18/22 23:00 100 12/18/22 23:00 12/18/22 22:30 100 12/18/22 22:30 12/18/22 22:00 99 12/18/22 22:00 12/19/22 07:00 103/71 97 Room Air 12/19/22 06:57 12/19/22 06:30 110/69 95 Room Air 12/19/22 04:00 99/63 L 94 Room Air 12/19/22 03:00 12/19/22 02:00 109/69 94 Room Air 12/19/22 00:31 111/78 94 Room Air 12/18/22 23:00 130/79 99 Nasal Cannula 2 Laboratory Results 12/19/22 12/19/22 12/19/22 Range/Units 07:39 06:04 04:17 WBC (4.8-10.8) K/ul RBC (4.70-6.10) M/uL Hgb (14.0-18.0) g/dl Hct (42.0-52.0) % MCV (80.0-100.0) fL MCH (25.0-34.0) pg MCHC (32.0-36.0) g/dL RDW Std Deviation (36.4-46.3) fL RDW Coeff of Gucci (11.5-14.5) % Plt Count (130-400) K/uL MPV (9.4-12.4) fL Immature Gran % (Auto) % Neut % (Auto) % Lymph % (Auto) % Isabela % (Auto) % Eos % (Auto) % Baso % (Auto) % Neut # (Auto) (1.40-6.50) K/uL Lymph # (Auto) (1.2-3.4) K/uL Isabela # (Auto) (0.11-0.59) K/uL Eos # (Auto) (0-0.50) K/uL Baso # (Auto) (0-0.2) K/uL Immature Gran # (Auto) (0.01-0.20) K/uL APTT (21.0-31.0) Seconds PTT Ratio Sodium 138 (136-145) mmol/L Potassium 4.2 D (3.5-5.1) mmol/L Chloride 107 (98-107) mmol/L Carbon Dioxide 23 (21-32) mmol/L Anion Gap 8 (3-11) BUN 5 L (6-23) mg/dl Creatinine 0.61 (0.6-1.4) mg/dl Est Cr Clr Drug Dosing 160.8 ml/min Est GFR ( Amer) 135.9 ml/min Est GFR (Non-Af Amer) 117.3 ml/min BUN/Creatinine Ratio 8.2 L (10-20) Glucose 128 H (70-99(Fasting)) mg/dl POC Glucose 115 H 152 H (70-99) mg/dl Estimat Average Glucose mg/dl Hemoglobin A1c (4.5-5.6) % Osmolality (280-300) mOsm/kg Calcium 8.5 L (8.6-10.3) mg/dl Magnesium (1.7-2.4) mg/dl Total Bilirubin (0.2-1.0) mg/dl AST (13-39) U/L ALT (7-52) U/L Alkaline Phosphatase (34-104) U/L Troponin I High Sens (0-20) pg/ml Total Protein (6.0-8.3) gm/dl Albumin (3.4-5.0) gm/dl Globulin (2.5-4.0) gm/dl Albumin/Globulin Ratio (0.9-2) Lipase (11-82) U/L TSH (0.300-4.500) uIu/ml Urine Color Urine Appearance (Clear) Urine pH (4.5-7.5) Ur Specific [place] (1.000-1.030) Urine Protein (Negative) Urine Glucose (UA) (Negative) Urine Ketones (Negative) Urine Blood (Negative) Urine Nitrite (Negative) Urine Bilirubin (Negative) Urine Urobilinogen (Negative) Ur Leukocyte Esterase (Negative) Ethyl Alcohol mg/dL (<10.0) mg/dl SARS-CoV-2, RNA, NAAT (NEGATIVE) Blood Type Antibody Screen 12/19/22 12/19/22 12/19/22 Range/Units 04:17 03:30 00:30 WBC 5.32 (4.8-10.8) K/ul RBC 4.34 L (4.70-6.10) M/uL Hgb 14.3 (14.0-18.0) g/dl Hct 40.3 L (42.0-52.0) % MCV 92.9 (80.0-100.0) fL MCH 32.9 (25.0-34.0) pg MCHC 35.5 (32.0-36.0) g/dL RDW Std Deviation 39.2 (36.4-46.3) fL RDW Coeff of Gucci 11.4 L (11.5-14.5) % Plt Count 185 (130-400) K/uL MPV 9.1 L (9.4-12.4) fL Immature Gran % (Auto) 0.2 % Neut % (Auto) 61.3 % Lymph % (Auto) 24.4 % Isabela % (Auto) 10.3 % Eos % (Auto) 3.2 % Baso % (Auto) 0.6 % Neut # (Auto) 3.26 (1.40-6.50) K/uL Lymph # (Auto) 1.30 (1.2-3.4) K/uL Isabela # (Auto) 0.55 (0.11-0.59) K/uL Eos # (Auto) 0.17 (0-0.50) K/uL Baso # (Auto) 0.03 (0-0.2) K/uL Immature Gran # (Auto) 0.01 (0.01-0.20) K/uL APTT (21.0-31.0) Seconds PTT Ratio Sodium (136-145) mmol/L Potassium (3.5-5.1) mmol/L Chloride (98-107) mmol/L Carbon Dioxide (21-32) mmol/L Anion Gap (3-11) BUN (6-23) mg/dl Creatinine (0.6-1.4) mg/dl Est Cr Clr Drug Dosing ml/min Est GFR ( Amer) ml/min Est GFR (Non-Af Amer) ml/min BUN/Creatinine Ratio (10-20) Glucose (70-99(Fasting)) mg/dl POC Glucose 130 H 90 (70-99) mg/dl Estimat Average Glucose mg/dl Hemoglobin A1c (4.5-5.6) % Osmolality (280-300) mOsm/kg Calcium (8.6-10.3) mg/dl Magnesium (1.7-2.4) mg/dl Total Bilirubin (0.2-1.0) mg/dl AST (13-39) U/L ALT (7-52) U/L Alkaline Phosphatase (34-104) U/L Troponin I High Sens (0-20) pg/ml Total Protein (6.0-8.3) gm/dl Albumin (3.4-5.0) gm/dl Globulin (2.5-4.0) gm/dl Albumin/Globulin Ratio (0.9-2) Lipase (11-82) U/L TSH (0.300-4.500) uIu/ml Urine Color Urine Appearance (Clear) Urine pH (4.5-7.5) Ur Specific [place] (1.000-1.030) Urine Protein (Negative) Urine Glucose (UA) (Negative) Urine Ketones (Negative) Urine Blood (Negative) Urine Nitrite (Negative) Urine Bilirubin (Negative) Urine Urobilinogen (Negative) Ur Leukocyte Esterase (Negative) Ethyl Alcohol mg/dL (<10.0) mg/dl SARS-CoV-2, RNA, NAAT (NEGATIVE) Blood Type Antibody Screen 12/19/22 12/19/22 12/19/22 Range/Units 00:19 00:19 00:19 WBC (4.8-10.8) K/ul RBC (4.70-6.10) M/uL Hgb 15.2 (14.0-18.0) g/dl Hct 42.3 (42.0-52.0) % MCV (80.0-100.0) fL MCH (25.0-34.0) pg MCHC (32.0-36.0) g/dL RDW Std Deviation (36.4-46.3) fL RDW Coeff of Gucci (11.5-14.5) % Plt Count (130-400) K/uL MPV (9.4-12.4) fL Immature Gran % (Auto) % Neut % (Auto) % Lymph % (Auto) % Isabela % (Auto) % Eos % (Auto) % Baso % (Auto) % Neut # (Auto) (1.40-6.50) K/uL Lymph # (Auto) (1.2-3.4) K/uL Isabela # (Auto) (0.11-0.59) K/uL Eos # (Auto) (0-0.50) K/uL Baso # (Auto) (0-0.2) K/uL Immature Gran # (Auto) (0.01-0.20) K/uL APTT (21.0-31.0) Seconds PTT Ratio Sodium 137 (136-145) mmol/L Potassium 3.2 L (3.5-5.1) mmol/L Chloride 104 (98-107) mmol/L Carbon Dioxide 26 (21-32) mmol/L Anion Gap 7 (3-11) BUN 6 (6-23) mg/dl Creatinine 0.64 (0.6-1.4) mg/dl Est Cr Clr Drug Dosing 153.2 ml/min Est GFR ( Amer) 133.3 ml/min Est GFR (Non-Af Amer) 115.0 ml/min BUN/Creatinine Ratio 9.4 L (10-20) Glucose 70 (70-99(Fasting)) mg/dl POC Glucose (70-99) mg/dl Estimat Average Glucose mg/dl Hemoglobin A1c (4.5-5.6) % Osmolality (280-300) mOsm/kg Calcium 8.9 (8.6-10.3) mg/dl Magnesium (1.7-2.4) mg/dl Total Bilirubin (0.2-1.0) mg/dl AST (13-39) U/L ALT (7-52) U/L Alkaline Phosphatase (34-104) U/L Troponin I High Sens (0-20) pg/ml Total Protein (6.0-8.3) gm/dl Albumin (3.4-5.0) gm/dl Globulin (2.5-4.0) gm/dl Albumin/Globulin Ratio (0.9-2) Lipase (11-82) U/L TSH (0.300-4.500) uIu/ml Urine Color Urine Appearance (Clear) Urine pH (4.5-7.5) Ur Specific [place] (1.000-1.030) Urine Protein (Negative) Urine Glucose (UA) (Negative) Urine Ketones (Negative) Urine Blood (Negative) Urine Nitrite (Negative) Urine Bilirubin (Negative) Urine Urobilinogen (Negative) Ur Leukocyte Esterase (Negative) Ethyl Alcohol mg/dL (<10.0) mg/dl SARS-CoV-2, RNA, NAAT (NEGATIVE) Blood Type A Positive Antibody Screen NEGATIVE 12/18/22 12/18/22 12/18/22 Range/Units 21:33 21:10 21:06 WBC (4.8-10.8) K/ul RBC (4.70-6.10) M/uL Hgb (14.0-18.0) g/dl Hct (42.0-52.0) % MCV (80.0-100.0) fL MCH (25.0-34.0) pg MCHC (32.0-36.0) g/dL RDW Std Deviation (36.4-46.3) fL RDW Coeff of Gucci (11.5-14.5) % Plt Count (130-400) K/uL MPV (9.4-12.4) fL Immature Gran % (Auto) % Neut % (Auto) % Lymph % (Auto) % Isabela % (Auto) % Eos % (Auto) % Baso % (Auto) % Neut # (Auto) (1.40-6.50) K/uL Lymph # (Auto) (1.2-3.4) K/uL Isabela # (Auto) (0.11-0.59) K/uL Eos # (Auto) (0-0.50) K/uL Baso # (Auto) (0-0.2) K/uL Immature Gran # (Auto) (0.01-0.20) K/uL APTT 28.2 (21.0-31.0) Seconds PTT Ratio 1.0 Sodium (136-145) mmol/L Potassium (3.5-5.1) mmol/L Chloride (98-107) mmol/L Carbon Dioxide (21-32) mmol/L Anion Gap (3-11) BUN (6-23) mg/dl Creatinine (0.6-1.4) mg/dl Est Cr Clr Drug Dosing ml/min Est GFR ( Amer) ml/min Est GFR (Non-Af Amer) ml/min BUN/Creatinine Ratio (10-20) Glucose (70-99(Fasting)) mg/dl POC Glucose (70-99) mg/dl Estimat Average Glucose mg/dl Hemoglobin A1c (4.5-5.6) % Osmolality (280-300) mOsm/kg Calcium (8.6-10.3) mg/dl Magnesium (1.7-2.4) mg/dl Total Bilirubin (0.2-1.0) mg/dl AST (13-39) U/L ALT (7-52) U/L Alkaline Phosphatase (34-104) U/L Troponin I High Sens (0-20) pg/ml Total Protein (6.0-8.3) gm/dl Albumin (3.4-5.0) gm/dl Globulin (2.5-4.0) gm/dl Albumin/Globulin Ratio (0.9-2) Lipase (11-82) U/L TSH (0.300-4.500) uIu/ml Urine Color Yellow Urine Appearance Clear (Clear) Urine pH 5.0 (4.5-7.5) Ur Specific [place] 1.009 (1.000-1.030) Urine Protein Negative (Negative) Urine Glucose (UA) 3+ H (Negative) Urine Ketones Negative (Negative) Urine Blood Negative (Negative) Urine Nitrite Negative (Negative) Urine Bilirubin Negative (Negative) Urine Urobilinogen Negative (Negative) Ur Leukocyte Esterase Negative (Negative) Ethyl Alcohol mg/dL (<10.0) mg/dl SARS-CoV-2, RNA, NAAT NEGATIVE (NEGATIVE) Blood Type Antibody Screen 12/18/22 12/18/22 12/18/22 Range/Units 21:06 21:06 21:06 WBC (4.8-10.8) K/ul RBC (4.70-6.10) M/uL Hgb (14.0-18.0) g/dl Hct (42.0-52.0) % MCV (80.0-100.0) fL MCH (25.0-34.0) pg MCHC (32.0-36.0) g/dL RDW Std Deviation (36.4-46.3) fL RDW Coeff of Gucci (11.5-14.5) % Plt Count (130-400) K/uL MPV (9.4-12.4) fL Immature Gran % (Auto) % Neut % (Auto) % Lymph % (Auto) % Isabela % (Auto) % Eos % (Auto) % Baso % (Auto) % Neut # (Auto) (1.40-6.50) K/uL Lymph # (Auto) (1.2-3.4) K/uL Isabela # (Auto) (0.11-0.59) K/uL Eos # (Auto) (0-0.50) K/uL Baso # (Auto) (0-0.2) K/uL Immature Gran # (Auto) (0.01-0.20) K/uL APTT (21.0-31.0) Seconds PTT Ratio Sodium (136-145) mmol/L Potassium (3.5-5.1) mmol/L Chloride (98-107) mmol/L Carbon Dioxide (21-32) mmol/L Anion Gap (3-11) BUN (6-23) mg/dl Creatinine (0.6-1.4) mg/dl Est Cr Clr Drug Dosing ml/min Est GFR ( Amer) ml/min Est GFR (Non-Af Amer) ml/min BUN/Creatinine Ratio (10-20) Glucose (70-99(Fasting)) mg/dl POC Glucose (70-99) mg/dl Estimat Average Glucose mg/dl Hemoglobin A1c (4.5-5.6) % Osmolality 354 H* (280-300) mOsm/kg Calcium (8.6-10.3) mg/dl Magnesium (1.7-2.4) mg/dl Total Bilirubin (0.2-1.0) mg/dl AST (13-39) U/L ALT (7-52) U/L Alkaline Phosphatase (34-104) U/L Troponin I High Sens (0-20) pg/ml Total Protein (6.0-8.3) gm/dl Albumin (3.4-5.0) gm/dl Globulin (2.5-4.0) gm/dl Albumin/Globulin Ratio (0.9-2) Lipase (11-82) U/L TSH 1.514 (0.300-4.500) uIu/ml Urine Color Urine Appearance (Clear) Urine pH (4.5-7.5) Ur Specific [place] (1.000-1.030) Urine Protein (Negative) Urine Glucose (UA) (Negative) Urine Ketones (Negative) Urine Blood (Negative) Urine Nitrite (Negative) Urine Bilirubin (Negative) Urine Urobilinogen (Negative) Ur Leukocyte Esterase (Negative) Ethyl Alcohol mg/dL 242.2 H (<10.0) mg/dl SARS-CoV-2, RNA, NAAT (NEGATIVE) Blood Type Antibody Screen 12/18/22 12/18/22 12/18/22 Range/Units 21:06 21:06 21:06 WBC 6.12 (4.8-10.8) K/ul RBC 4.49 L (4.70-6.10) M/uL Hgb 14.7 (14.0-18.0) g/dl Hct 40.2 L (42.0-52.0) % MCV 89.5 (80.0-100.0) fL MCH 32.7 (25.0-34.0) pg MCHC 36.6 H (32.0-36.0) g/dL RDW Std Deviation 36.8 (36.4-46.3) fL RDW Coeff of Gucci 11.4 L (11.5-14.5) % Plt Count 217 (130-400) K/uL MPV 9.4 (9.4-12.4) fL Immature Gran % (Auto) 0.2 % Neut % (Auto) 59.7 % Lymph % (Auto) 27.3 % Isabela % (Auto) 6.4 % Eos % (Auto) 5.6 % Baso % (Auto) 0.8 % Neut # (Auto) 3.66 (1.40-6.50) K/uL Lymph # (Auto) 1.67 (1.2-3.4) K/uL Isabela # (Auto) 0.39 (0.11-0.59) K/uL Eos # (Auto) 0.34 (0-0.50) K/uL Baso # (Auto) 0.05 (0-0.2) K/uL Immature Gran # (Auto) 0.01 (0.01-0.20) K/uL APTT (21.0-31.0) Seconds PTT Ratio Sodium 129 L (136-145) mmol/L Potassium 3.6 (3.5-5.1) mmol/L Chloride 95 L (98-107) mmol/L Carbon Dioxide 20 L (21-32) mmol/L Anion Gap 14 H (3-11) BUN 7 (6-23) mg/dl Creatinine 0.73 (0.6-1.4) mg/dl Est Cr Clr Drug Dosing 134.4 ml/min Est GFR ( Amer) 126.2 ml/min Est GFR (Non-Af Amer) 108.9 ml/min BUN/Creatinine Ratio 9.6 L (10-20) Glucose 480 H* (70-99(Fasting)) mg/dl POC Glucose (70-99) mg/dl Estimat Average Glucose 243 mg/dl Hemoglobin A1c 10.1 H (4.5-5.6) % Osmolality (280-300) mOsm/kg Calcium 9.3 (8.6-10.3) mg/dl Magnesium 1.9 (1.7-2.4) mg/dl Total Bilirubin 0.5 (0.2-1.0) mg/dl AST 14 (13-39) U/L ALT 13 (7-52) U/L Alkaline Phosphatase 72 (34-104) U/L Troponin I High Sens 2.4 (0-20) pg/ml Total Protein 7.3 (6.0-8.3) gm/dl Albumin 4.0 (3.4-5.0) gm/dl Globulin 3.3 (2.5-4.0) gm/dl Albumin/Globulin Ratio 1.2 (0.9-2) Lipase 26 (11-82) U/L TSH (0.300-4.500) uIu/ml Urine Color Urine Appearance (Clear) Urine pH (4.5-7.5) Ur Specific [place] (1.000-1.030) Urine Protein (Negative) Urine Glucose (UA) (Negative) Urine Ketones (Negative) Urine Blood (Negative) Urine Nitrite (Negative) Urine Bilirubin (Negative) Urine Urobilinogen (Negative) Ur Leukocyte Esterase (Negative) Ethyl Alcohol mg/dL (<10.0) mg/dl SARS-CoV-2, RNA, NAAT (NEGATIVE) Blood Type Antibody Screen 12/18/22 12/18/22 Range/Units 20:50 20:42 WBC (4.8-10.8) K/ul RBC (4.70-6.10) M/uL Hgb (14.0-18.0) g/dl Hct (42.0-52.0) % MCV (80.0-100.0) fL MCH (25.0-34.0) pg MCHC (32.0-36.0) g/dL RDW Std Deviation (36.4-46.3) fL RDW Coeff of Gucci (11.5-14.5) % Plt Count (130-400) K/uL MPV (9.4-12.4) fL Immature Gran % (Auto) % Neut % (Auto) % Lymph % (Auto) % Isabela % (Auto) % Eos % (Auto) % Baso % (Auto) % Neut # (Auto) (1.40-6.50) K/uL Lymph # (Auto) (1.2-3.4) K/uL Isabela # (Auto) (0.11-0.59) K/uL Eos # (Auto) (0-0.50) K/uL Baso # (Auto) (0-0.2) K/uL Immature Gran # (Auto) (0.01-0.20) K/uL APTT (21.0-31.0) Seconds PTT Ratio Sodium (136-145) mmol/L Potassium (3.5-5.1) mmol/L Chloride (98-107) mmol/L Carbon Dioxide (21-32) mmol/L Anion Gap (3-11) BUN (6-23) mg/dl Creatinine (0.6-1.4) mg/dl Est Cr Clr Drug Dosing ml/min Est GFR ( Amer) ml/min Est GFR (Non-Af Amer) ml/min BUN/Creatinine Ratio (10-20) Glucose (70-99(Fasting)) mg/dl POC Glucose 442 H* 490 H* (70-99) mg/dl Estimat Average Glucose mg/dl Hemoglobin A1c (4.5-5.6) % Osmolality (280-300) mOsm/kg Calcium (8.6-10.3) mg/dl Magnesium (1.7-2.4) mg/dl Total Bilirubin (0.2-1.0) mg/dl AST (13-39) U/L ALT (7-52) U/L Alkaline Phosphatase (34-104) U/L Troponin I High Sens (0-20) pg/ml Total Protein (6.0-8.3) gm/dl Albumin (3.4-5.0) gm/dl Globulin (2.5-4.0) gm/dl Albumin/Globulin Ratio (0.9-2) Lipase (11-82) U/L TSH (0.300-4.500) uIu/ml Urine Color Urine Appearance (Clear) Urine pH (4.5-7.5) Ur Specific [place] (1.000-1.030) Urine Protein (Negative) Urine Glucose (UA) (Negative) Urine Ketones (Negative) Urine Blood (Negative) Urine Nitrite (Negative) Urine Bilirubin (Negative) Urine Urobilinogen (Negative) Ur Leukocyte Esterase (Negative) Ethyl Alcohol mg/dL (<10.0) mg/dl SARS-CoV-2, RNA, NAAT (NEGATIVE) Blood Type Antibody Screen
[2022-12-19] MEDS: ACETAMINOPHEN 1,000 MG/100 ML VIAL IV PRN (10:30)
[2022-12-19] MEDS ORDERED: PHARMACY GLYCEMIC MGMT CONSULT PRN (10:32)
--- NOTE | 2022-12-19 10:32 | Hospitalist Progress Note ---
Date of Service December 19, 2022 Assessment & Plan (1) Hyperglycemic crisis in diabetes mellitus: Plan: mild DKA DM2 insulin requiring , suboptimal control Current hemoglobin A1c of 10.1 % this month Secondary to medical noncompliance Medical telemetry IVF, basal bolus insulin, ISS BG goal 110 -140, carb count coverage Glycemic pharmacy consulted, chemical educator consulted This a.m. patient had hypoglycemic episode, symptomatic - received orange juice, repeat BSG normal -Continue to closely monitor LGIB, history of PE/DVT on Eliquis Hemoglobin currently stable Eliquis initially on hold on admission, plan to restart -GI consulted Alcoholic gastritis - cont. PPI, add famotidine, DT precautions, RHETT S protocol Chronic pancreatitis - GI consulted - Would add Creon with meals and snacks as he reports his pain is exacerbated by eating and he is not on pancreatic enzymes at home. He already has an outpatient EGD/EUS and colonoscopy scheduled in March. He has missed 2 previous endoscopies and encouraged him to keep these appointments. 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 PPI 40 mg BID. Advance diet as tolerated. history GERD/Renae's esophagus history of chronic pain, hx narcotic abuse as per records/terminated medication agreement. ADD/mood disorder as per records DVT prophylaxis SCDs Re: L GIB Full code Admission and Anticipated Discharge Date Admission Date: December 18, 2022 Subjective Patient seen in follow-up of abdominal pain, chronic pancreatitis This morning patient was hypoglycemic after receiving insulin, and symptomatic. Says that he somewhat recovered after drinking some orange juice, and then fell asleep. When he woke up he was feeling still a bit off, saying that he had some blurry vision, however otherwise felt back to normal and around 1:00 he received Dilaudid for his pancreatitis pain. At 2:00, he reported to RN that he has been having severe headache which he never gets, and chest pain, radiating to his jaw with deep breaths. He is awake alert oriented answering questions appropriately, he is moving extremities, however has some tremor. He is on Eliquis (which was held on admission d/t ? GI bleed), and therefore we discussed to obtain CT head, which patient agreed with. We will also obtain stat chest x-ray and EKG., Troponin. Update: CT head negative CXR - negat., trop negat. - pt improving. Resume Eliquis. Repeat ECG this evening. Review of Systems Review of Systems: All systems reviewed & are unremarkable except as noted in Subjective Physical Exam Physical Exam: GENERAL: WD/WN M in NAD HEENT: NC/ AT. EOMI. NECK : Supple CHEST : CT A, no tenderness HEART : rrr, no ob vious murmurs ABD OMEN: Soft, + epig astric tenderness, + bowel sounds E XTREMITIES : No LE swelling, moves e xtremities SKIN: warm, dry NEUROLO GIC : awake, alert oriented answerin g appropriately. m ildly asymmetric s mile (possibly chr onic?), otherwise CN intact, EOMI.+ tremor w/ movement . gait and stance not assessed Results & Data Results & Data Vital Signs (Past 12 Hours) Vital Signs Temp Pulse Pulse Pulse Resp BP BP 12/19/22 08:43 36.6 C 60 18 125/75 12/19/22 08:00 59 L 4 L 12/19/22 08:00 116/71 12/19/22 07:30 66 3 L 12/19/22 07:30 102/73 12/19/22 07:00 63 6 L 12/19/22 07:00 103/71 12/19/22 06:30 63 12 12/19/22 06:30 110/69 12/19/22 06:00 77 22 12/19/22 06:00 128/80 12/19/22 05:30 68 13 12/19/22 05:30 103/68 12/19/22 05:00 66 1 L 12/19/22 05:00 105/69 12/19/22 04:30 92 H 17 12/19/22 04:30 115/77 12/19/22 04:00 67 9 L 12/19/22 04:00 99/63 L 12/19/22 03:30 92 H 14 12/19/22 03:30 110/68 12/19/22 03:00 95 H 17 12/19/22 03:00 108/69 12/19/22 02:30 90 5 L 12/19/22 02:30 94/69 L 12/19/22 02:00 97 H 6 L 12/19/22 02:00 109/69 12/19/22 01:30 93 H 21 12/19/22 01:30 104/63 12/19/22 01:00 98 H 11 L 12/19/22 01:00 110/69 12/19/22 00:32 96 H 22 12/19/22 00:31 111/78 12/18/22 23:59 105 H 15 12/18/22 23:30 111 H 20 12/18/22 23:30 144/86 H 12/18/22 23:00 108 H 18 12/18/22 23:00 130/79 12/19/22 07:00 64 16 12/19/22 06:57 74 12/19/22 06:30 65 18 12/19/22 04:00 36.7 C 67 18 12/19/22 03:00 68 12/19/22 02:00 98 H 16 12/19/22 00:31 36.7 C 90 18 12/18/22 23:00 100 H 18 BP Pulse Ox O2 Del Method O2 Flow Rate 12/19/22 08:43 98 Room Air 12/19/22 08:00 96 12/19/22 08:00 12/19/22 07:30 96 12/19/22 07:30 12/19/22 07:00 95 12/19/22 07:00 12/19/22 06:30 97 12/19/22 06:30 12/19/22 06:00 98 12/19/22 06:00 12/19/22 05:30 95 12/19/22 05:30 12/19/22 05:00 96 12/19/22 05:00 12/19/22 04:30 96 12/19/22 04:30 12/19/22 04:00 94 12/19/22 04:00 12/19/22 03:30 95 12/19/22 03:30 12/19/22 03:00 97 12/19/22 03:00 12/19/22 02:30 93 12/19/22 02:30 12/19/22 02:00 92 12/19/22 02:00 12/19/22 01:30 93 12/19/22 01:30 12/19/22 01:00 95 12/19/22 01:00 12/19/22 00:32 96 12/19/22 00:31 12/18/22 23:59 100 12/18/22 23:30 99 12/18/22 23:30 12/18/22 23:00 100 12/18/22 23:00 12/19/22 07:00 103/71 97 Room Air 12/19/22 06:57 12/19/22 06:30 110/69 95 Room Air 12/19/22 04:00 99/63 L 94 Room Air 12/19/22 03:00 12/19/22 02:00 109/69 94 Room Air 12/19/22 00:31 111/78 94 Room Air 12/18/22 23:00 130/79 99 Nasal Cannula 2 Laboratory Results 12/19/22 12/19/22 12/19/22 Range/Units 07:39 06:04 04:17 WBC (4.8-10.8) K/ul RBC (4.70-6.10) M/uL Hgb (14.0-18.0) g/dl Hct (42.0-52.0) % MCV (80.0-100.0) fL MCH (25.0-34.0) pg MCHC (32.0-36.0) g/dL RDW Std Deviation (36.4-46.3) fL RDW Coeff of Gucci (11.5-14.5) % Plt Count (130-400) K/uL MPV (9.4-12.4) fL Immature Gran % (Auto) % Neut % (Auto) % Lymph % (Auto) % Garvin % (Auto) % Eos % (Auto) % Baso % (Auto) % Neut # (Auto) (1.40-6.50) K/uL Lymph # (Auto) (1.2-3.4) K/uL Garvin # (Auto) (0.11-0.59) K/uL Eos # (Auto) (0-0.50) K/uL Baso # (Auto) (0-0.2) K/uL Immature Gran # (Auto) (0.01-0.20) K/uL APTT (21.0-31.0) Seconds PTT Ratio Sodium 138 (136-145) mmol/L Potassium 4.2 D (3.5-5.1) mmol/L Chloride 107 (98-107) mmol/L Carbon Dioxide 23 (21-32) mmol/L Anion Gap 8 (3-11) BUN 5 L (6-23) mg/dl Creatinine 0.61 (0.6-1.4) mg/dl Est Cr Clr Drug Dosing 160.8 ml/min Est GFR ( Amer) 135.9 ml/min Est GFR (Non-Af Amer) 117.3 ml/min BUN/Creatinine Ratio 8.2 L (10-20) Glucose 128 H (70-99(Fasting)) mg/dl POC Glucose 115 H 152 H (70-99) mg/dl Estimat Average Glucose mg/dl Hemoglobin A1c (4.5-5.6) % Osmolality (280-300) mOsm/kg Calcium 8.5 L (8.6-10.3) mg/dl Magnesium (1.7-2.4) mg/dl Total Bilirubin (0.2-1.0) mg/dl AST (13-39) U/L ALT (7-52) U/L Alkaline Phosphatase (34-104) U/L Troponin I High Sens (0-20) pg/ml Total Protein (6.0-8.3) gm/dl Albumin (3.4-5.0) gm/dl Globulin (2.5-4.0) gm/dl Albumin/Globulin Ratio (0.9-2) Lipase (11-82) U/L TSH (0.300-4.500) uIu/ml Urine Color Urine Appearance (Clear) Urine pH (4.5-7.5) Ur Specific [place] (1.000-1.030) Urine Protein (Negative) Urine Glucose (UA) (Negative) Urine Ketones (Negative) Urine Blood (Negative) Urine Nitrite (Negative) Urine Bilirubin (Negative) Urine Urobilinogen (Negative) Ur Leukocyte Esterase (Negative) Ethyl Alcohol mg/dL (<10.0) mg/dl SARS-CoV-2, RNA, NAAT (NEGATIVE) Blood Type Antibody Screen 12/19/22 12/19/22 12/19/22 Range/Units 04:17 03:30 00:30 WBC 5.32 (4.8-10.8) K/ul RBC 4.34 L (4.70-6.10) M/uL Hgb 14.3 (14.0-18.0) g/dl Hct 40.3 L (42.0-52.0) % MCV 92.9 (80.0-100.0) fL MCH 32.9 (25.0-34.0) pg MCHC 35.5 (32.0-36.0) g/dL RDW Std Deviation 39.2 (36.4-46.3) fL RDW Coeff of Gucci 11.4 L (11.5-14.5) % Plt Count 185 (130-400) K/uL MPV 9.1 L (9.4-12.4) fL Immature Gran % (Auto) 0.2 % Neut % (Auto) 61.3 % Lymph % (Auto) 24.4 % Garvin % (Auto) 10.3 % Eos % (Auto) 3.2 % Baso % (Auto) 0.6 % Neut # (Auto) 3.26 (1.40-6.50) K/uL Lymph # (Auto) 1.30 (1.2-3.4) K/uL Garvin # (Auto) 0.55 (0.11-0.59) K/uL Eos # (Auto) 0.17 (0-0.50) K/uL Baso # (Auto) 0.03 (0-0.2) K/uL Immature Gran # (Auto) 0.01 (0.01-0.20) K/uL APTT (21.0-31.0) Seconds PTT Ratio Sodium (136-145) mmol/L Potassium (3.5-5.1) mmol/L Chloride (98-107) mmol/L Carbon Dioxide (21-32) mmol/L Anion Gap (3-11) BUN (6-23) mg/dl Creatinine (0.6-1.4) mg/dl Est Cr Clr Drug Dosing ml/min Est GFR ( Amer) ml/min Est GFR (Non-Af Amer) ml/min BUN/Creatinine Ratio (10-20) Glucose (70-99(Fasting)) mg/dl POC Glucose 130 H 90 (70-99) mg/dl Estimat Average Glucose mg/dl Hemoglobin A1c (4.5-5.6) % Osmolality (280-300) mOsm/kg Calcium (8.6-10.3) mg/dl Magnesium (1.7-2.4) mg/dl Total Bilirubin (0.2-1.0) mg/dl AST (13-39) U/L ALT (7-52) U/L Alkaline Phosphatase (34-104) U/L Troponin I High Sens (0-20) pg/ml Total Protein (6.0-8.3) gm/dl Albumin (3.4-5.0) gm/dl Globulin (2.5-4.0) gm/dl Albumin/Globulin Ratio (0.9-2) Lipase (11-82) U/L TSH (0.300-4.500) uIu/ml Urine Color Urine Appearance (Clear) Urine pH (4.5-7.5) Ur Specific [place] (1.000-1.030) Urine Protein (Negative) Urine Glucose (UA) (Negative) Urine Ketones (Negative) Urine Blood (Negative) Urine Nitrite (Negative) Urine Bilirubin (Negative) Urine Urobilinogen (Negative) Ur Leukocyte Esterase (Negative) Ethyl Alcohol mg/dL (<10.0) mg/dl SARS-CoV-2, RNA, NAAT (NEGATIVE) Blood Type Antibody Screen 12/19/22 12/19/22 12/19/22 Range/Units 00:19 00:19 00:19 WBC (4.8-10.8) K/ul RBC (4.70-6.10) M/uL Hgb 15.2 (14.0-18.0) g/dl Hct 42.3 (42.0-52.0) % MCV (80.0-100.0) fL MCH (25.0-34.0) pg MCHC (32.0-36.0) g/dL RDW Std Deviation (36.4-46.3) fL RDW Coeff of Gucci (11.5-14.5) % Plt Count (130-400) K/uL MPV (9.4-12.4) fL Immature Gran % (Auto) % Neut % (Auto) % Lymph % (Auto) % Garvin % (Auto) % Eos % (Auto) % Baso % (Auto) % Neut # (Auto) (1.40-6.50) K/uL Lymph # (Auto) (1.2-3.4) K/uL Garvin # (Auto) (0.11-0.59) K/uL Eos # (Auto) (0-0.50) K/uL Baso # (Auto) (0-0.2) K/uL Immature Gran # (Auto) (0.01-0.20) K/uL APTT (21.0-31.0) Seconds PTT Ratio Sodium 137 (136-145) mmol/L Potassium 3.2 L (3.5-5.1) mmol/L Chloride 104 (98-107) mmol/L Carbon Dioxide 26 (21-32) mmol/L Anion Gap 7 (3-11) BUN 6 (6-23) mg/dl Creatinine 0.64 (0.6-1.4) mg/dl Est Cr Clr Drug Dosing 153.2 ml/min Est GFR ( Amer) 133.3 ml/min Est GFR (Non-Af Amer) 115.0 ml/min BUN/Creatinine Ratio 9.4 L (10-20) Glucose 70 (70-99(Fasting)) mg/dl POC Glucose (70-99) mg/dl Estimat Average Glucose mg/dl Hemoglobin A1c (4.5-5.6) % Osmolality (280-300) mOsm/kg Calcium 8.9 (8.6-10.3) mg/dl Magnesium (1.7-2.4) mg/dl Total Bilirubin (0.2-1.0) mg/dl AST (13-39) U/L ALT (7-52) U/L Alkaline Phosphatase (34-104) U/L Troponin I High Sens (0-20) pg/ml Total Protein (6.0-8.3) gm/dl Albumin (3.4-5.0) gm/dl Globulin (2.5-4.0) gm/dl Albumin/Globulin Ratio (0.9-2) Lipase (11-82) U/L TSH (0.300-4.500) uIu/ml Urine Color Urine Appearance (Clear) Urine pH (4.5-7.5) Ur Specific [place] (1.000-1.030) Urine Protein (Negative) Urine Glucose (UA) (Negative) Urine Ketones (Negative) Urine Blood (Negative) Urine Nitrite (Negative) Urine Bilirubin (Negative) Urine Urobilinogen (Negative) Ur Leukocyte Esterase (Negative) Ethyl Alcohol mg/dL (<10.0) mg/dl SARS-CoV-2, RNA, NAAT (NEGATIVE) Blood Type A Positive Antibody Screen NEGATIVE 12/18/22 12/18/22 12/18/22 Range/Units 21:33 21:10 21:06 WBC (4.8-10.8) K/ul RBC (4.70-6.10) M/uL Hgb (14.0-18.0) g/dl Hct (42.0-52.0) % MCV (80.0-100.0) fL MCH (25.0-34.0) pg MCHC (32.0-36.0) g/dL RDW Std Deviation (36.4-46.3) fL RDW Coeff of Gucci (11.5-14.5) % Plt Count (130-400) K/uL MPV (9.4-12.4) fL Immature Gran % (Auto) % Neut % (Auto) % Lymph % (Auto) % Garvin % (Auto) % Eos % (Auto) % Baso % (Auto) % Neut # (Auto) (1.40-6.50) K/uL Lymph # (Auto) (1.2-3.4) K/uL Garvin # (Auto) (0.11-0.59) K/uL Eos # (Auto) (0-0.50) K/uL Baso # (Auto) (0-0.2) K/uL Immature Gran # (Auto) (0.01-0.20) K/uL APTT 28.2 (21.0-31.0) Seconds PTT Ratio 1.0 Sodium (136-145) mmol/L Potassium (3.5-5.1) mmol/L Chloride (98-107) mmol/L Carbon Dioxide (21-32) mmol/L Anion Gap (3-11) BUN (6-23) mg/dl Creatinine (0.6-1.4) mg/dl Est Cr Clr Drug Dosing ml/min Est GFR ( Amer) ml/min Est GFR (Non-Af Amer) ml/min BUN/Creatinine Ratio (10-20) Glucose (70-99(Fasting)) mg/dl POC Glucose (70-99) mg/dl Estimat Average Glucose mg/dl Hemoglobin A1c (4.5-5.6) % Osmolality (280-300) mOsm/kg Calcium (8.6-10.3) mg/dl Magnesium (1.7-2.4) mg/dl Total Bilirubin (0.2-1.0) mg/dl AST (13-39) U/L ALT (7-52) U/L Alkaline Phosphatase (34-104) U/L Troponin I High Sens (0-20) pg/ml Total Protein (6.0-8.3) gm/dl Albumin (3.4-5.0) gm/dl Globulin (2.5-4.0) gm/dl Albumin/Globulin Ratio (0.9-2) Lipase (11-82) U/L TSH (0.300-4.500) uIu/ml Urine Color Yellow Urine Appearance Clear (Clear) Urine pH 5.0 (4.5-7.5) Ur Specific [place] 1.009 (1.000-1.030) Urine Protein Negative (Negative) Urine Glucose (UA) 3+ H (Negative) Urine Ketones Negative (Negative) Urine Blood Negative (Negative) Urine Nitrite Negative (Negative) Urine Bilirubin Negative (Negative) Urine Urobilinogen Negative (Negative) Ur Leukocyte Esterase Negative (Negative) Ethyl Alcohol mg/dL (<10.0) mg/dl SARS-CoV-2, RNA, NAAT NEGATIVE (NEGATIVE) Blood Type Antibody Screen 12/18/22 12/18/22 12/18/22 Range/Units 21:06 21:06 21:06 WBC (4.8-10.8) K/ul RBC (4.70-6.10) M/uL Hgb (14.0-18.0) g/dl Hct (42.0-52.0) % MCV (80.0-100.0) fL MCH (25.0-34.0) pg MCHC (32.0-36.0) g/dL RDW Std Deviation (36.4-46.3) fL RDW Coeff of Gucci (11.5-14.5) % Plt Count (130-400) K/uL MPV (9.4-12.4) fL Immature Gran % (Auto) % Neut % (Auto) % Lymph % (Auto) % Garvin % (Auto) % Eos % (Auto) % Baso % (Auto) % Neut # (Auto) (1.40-6.50) K/uL Lymph # (Auto) (1.2-3.4) K/uL Garvin # (Auto) (0.11-0.59) K/uL Eos # (Auto) (0-0.50) K/uL Baso # (Auto) (0-0.2) K/uL Immature Gran # (Auto) (0.01-0.20) K/uL APTT (21.0-31.0) Seconds PTT Ratio Sodium (136-145) mmol/L Potassium (3.5-5.1) mmol/L Chloride (98-107) mmol/L Carbon Dioxide (21-32) mmol/L Anion Gap (3-11) BUN (6-23) mg/dl Creatinine (0.6-1.4) mg/dl Est Cr Clr Drug Dosing ml/min Est GFR ( Amer) ml/min Est GFR (Non-Af Amer) ml/min BUN/Creatinine Ratio (10-20) Glucose (70-99(Fasting)) mg/dl POC Glucose (70-99) mg/dl Estimat Average Glucose mg/dl Hemoglobin A1c (4.5-5.6) % Osmolality 354 H* (280-300) mOsm/kg Calcium (8.6-10.3) mg/dl Magnesium (1.7-2.4) mg/dl Total Bilirubin (0.2-1.0) mg/dl AST (13-39) U/L ALT (7-52) U/L Alkaline Phosphatase (34-104) U/L Troponin I High Sens (0-20) pg/ml Total Protein (6.0-8.3) gm/dl Albumin (3.4-5.0) gm/dl Globulin (2.5-4.0) gm/dl Albumin/Globulin Ratio (0.9-2) Lipase (11-82) U/L TSH 1.514 (0.300-4.500) uIu/ml Urine Color Urine Appearance (Clear) Urine pH (4.5-7.5) Ur Specific [place] (1.000-1.030) Urine Protein (Negative) Urine Glucose (UA) (Negative) Urine Ketones (Negative) Urine Blood (Negative) Urine Nitrite (Negative) Urine Bilirubin (Negative) Urine Urobilinogen (Negative) Ur Leukocyte Esterase (Negative) Ethyl Alcohol mg/dL 242.2 H (<10.0) mg/dl SARS-CoV-2, RNA, NAAT (NEGATIVE) Blood Type Antibody Screen 12/18/22 12/18/22 12/18/22 Range/Units 21:06 21:06 21:06 WBC 6.12 (4.8-10.8) K/ul RBC 4.49 L (4.70-6.10) M/uL Hgb 14.7 (14.0-18.0) g/dl Hct 40.2 L (42.0-52.0) % MCV 89.5 (80.0-100.0) fL MCH 32.7 (25.0-34.0) pg MCHC 36.6 H (32.0-36.0) g/dL RDW Std Deviation 36.8 (36.4-46.3) fL RDW Coeff of Gucci 11.4 L (11.5-14.5) % Plt Count 217 (130-400) K/uL MPV 9.4 (9.4-12.4) fL Immature Gran % (Auto) 0.2 % Neut % (Auto) 59.7 % Lymph % (Auto) 27.3 % Garvin % (Auto) 6.4 % Eos % (Auto) 5.6 % Baso % (Auto) 0.8 % Neut # (Auto) 3.66 (1.40-6.50) K/uL Lymph # (Auto) 1.67 (1.2-3.4) K/uL Garvin # (Auto) 0.39 (0.11-0.59) K/uL Eos # (Auto) 0.34 (0-0.50) K/uL Baso # (Auto) 0.05 (0-0.2) K/uL Immature Gran # (Auto) 0.01 (0.01-0.20) K/uL APTT (21.0-31.0) Seconds PTT Ratio Sodium 129 L (136-145) mmol/L Potassium 3.6 (3.5-5.1) mmol/L Chloride 95 L (98-107) mmol/L Carbon Dioxide 20 L (21-32) mmol/L Anion Gap 14 H (3-11) BUN 7 (6-23) mg/dl Creatinine 0.73 (0.6-1.4) mg/dl Est Cr Clr Drug Dosing 134.4 ml/min Est GFR ( Amer) 126.2 ml/min Est GFR (Non-Af Amer) 108.9 ml/min BUN/Creatinine Ratio 9.6 L (10-20) Glucose 480 H* (70-99(Fasting)) mg/dl POC Glucose (70-99) mg/dl Estimat Average Glucose 243 mg/dl Hemoglobin A1c 10.1 H (4.5-5.6) % Osmolality (280-300) mOsm/kg Calcium 9.3 (8.6-10.3) mg/dl Magnesium 1.9 (1.7-2.4) mg/dl Total Bilirubin 0.5 (0.2-1.0) mg/dl AST 14 (13-39) U/L ALT 13 (7-52) U/L Alkaline Phosphatase 72 (34-104) U/L Troponin I High Sens 2.4 (0-20) pg/ml Total Protein 7.3 (6.0-8.3) gm/dl Albumin 4.0 (3.4-5.0) gm/dl Globulin 3.3 (2.5-4.0) gm/dl Albumin/Globulin Ratio 1.2 (0.9-2) Lipase 26 (11-82) U/L TSH (0.300-4.500) uIu/ml Urine Color Urine Appearance (Clear) Urine pH (4.5-7.5) Ur Specific [place] (1.000-1.030) Urine Protein (Negative) Urine Glucose (UA) (Negative) Urine Ketones (Negative) Urine Blood (Negative) Urine Nitrite (Negative) Urine Bilirubin (Negative) Urine Urobilinogen (Negative) Ur Leukocyte Esterase (Negative) Ethyl Alcohol mg/dL (<10.0) mg/dl SARS-CoV-2, RNA, NAAT (NEGATIVE) Blood Type Antibody Screen 12/18/22 12/18/22 Range/Units 20:50 20:42 WBC (4.8-10.8) K/ul RBC (4.70-6.10) M/uL Hgb (14.0-18.0) g/dl Hct (42.0-52.0) % MCV (80.0-100.0) fL MCH (25.0-34.0) pg MCHC (32.0-36.0) g/dL RDW Std Deviation (36.4-46.3) fL RDW Coeff of Gucci (11.5-14.5) % Plt Count (130-400) K/uL MPV (9.4-12.4) fL Immature Gran % (Auto) % Neut % (Auto) % Lymph % (Auto) % Garvin % (Auto) % Eos % (Auto) % Baso % (Auto) % Neut # (Auto) (1.40-6.50) K/uL Lymph # (Auto) (1.2-3.4) K/uL Garvin # (Auto) (0.11-0.59) K/uL Eos # (Auto) (0-0.50) K/uL Baso # (Auto) (0-0.2) K/uL Immature Gran # (Auto) (0.01-0.20) K/uL APTT (21.0-31.0) Seconds PTT Ratio Sodium (136-145) mmol/L Potassium (3.5-5.1) mmol/L Chloride (98-107) mmol/L Carbon Dioxide (21-32) mmol/L Anion Gap (3-11) BUN (6-23) mg/dl Creatinine (0.6-1.4) mg/dl Est Cr Clr Drug Dosing ml/min Est GFR ( Amer) ml/min Est GFR (Non-Af Amer) ml/min BUN/Creatinine Ratio (10-20) Glucose (70-99(Fasting)) mg/dl POC Glucose 442 H* 490 H* (70-99) mg/dl Estimat Average Glucose mg/dl Hemoglobin A1c (4.5-5.6) % Osmolality (280-300) mOsm/kg Calcium (8.6-10.3) mg/dl Magnesium (1.7-2.4) mg/dl Total Bilirubin (0.2-1.0) mg/dl AST (13-39) U/L ALT (7-52) U/L Alkaline Phosphatase (34-104) U/L Troponin I High Sens (0-20) pg/ml Total Protein (6.0-8.3) gm/dl Albumin (3.4-5.0) gm/dl Globulin (2.5-4.0) gm/dl Albumin/Globulin Ratio (0.9-2) Lipase (11-82) U/L TSH (0.300-4.500) uIu/ml Urine Color Urine Appearance (Clear) Urine pH (4.5-7.5) Ur Specific [place] (1.000-1.030) Urine Protein (Negative) Urine Glucose (UA) (Negative) Urine Ketones (Negative) Urine Blood (Negative) Urine Nitrite (Negative) Urine Bilirubin (Negative) Urine Urobilinogen (Negative) Ur Leukocyte Esterase (Negative) Ethyl Alcohol mg/dL (<10.0) mg/dl SARS-CoV-2, RNA, NAAT (NEGATIVE) Blood Type Antibody Screen Medications Administered Current Inpatient Medications Acetaminophen (Acetaminophen 500 Mg Tab) 500 mg PO Q6H PRN PRN Reason: pain/fever Stop: 01/17/23 22:39 Dextrose (Dextrose 50% 50 Ml Syringe) 25 - 50 ml IV UD PRN; Protocol PRN Reason: Hypoglycemia Protocol Stop: 01/17/23 23:44 Folic Acid (Folic Acid 1 Mg Tab) 1 mg PO QAM RAMOS Stop: 01/18/23 08:59 Gabapentin (Gabapentin 600 Mg Tab) 600 mg PO Q24H RAMOS Stop: 12/22/22 12:01 Gabapentin (Gabapentin 600 Mg Tab) 600 mg PO Q12H RAMOS Stop: 12/21/22 12:01 Gabapentin (Gabapentin 600 Mg Tab) 600 mg PO Q8H RAMOS Stop: 12/20/22 14:01 Gabapentin (Gabapentin 600 Mg Tab) 600 mg PO Q6H RAMOS Stop: 12/19/22 12:01 Last Admin: 12/19/22 06:00 Dose: 600 mg Glucagon (Glucagon For Inj 1 Mg Vial) 1 mg SQ UD PRN; Protocol PRN Reason: Hypoglycemia Protocol Stop: 01/17/23 23:44 Glucose (Glucose 10 Tab/Tube) 4 - 8 tab PO UD PRN; Protocol PRN Reason: Hypoglycemia Treatment Stop: 01/17/23 23:44 Glucose (Glucose 40% Gel 15 Gm Tube) 15 - 30 gm PO UD PRN; Protocol PRN Reason: Hypoglycemia Protocol Stop: 01/17/23 23:44 Promethazine HCl 12.5 mg/ (Sodium Chloride) 50.5 mls @ 202 mls/hr IV Q6H PRN PRN Reason: Nausea And Vomiting Stop: 01/17/23 22:39 Last Infusion: 12/19/22 08:06 Dose: Infused Acetaminophen (Ofirmev) 1,000 mg in 100 mls @ 400 mls/hr IV Q12H PRN PRN Reason: pain/fever Stop: 12/21/22 23:37 Last Admin: 12/19/22 10:30 Dose: 400 mls/hr Lactated Ringer's (Lr) 1,000 mls @ 150 mls/hr IV .Q6H40M ONE Stop: 12/19/22 12:20 Last Admin: 12/19/22 05:59 Dose: 150 mls/hr Insulin Aspart (Insulin Aspart Per Unit Charge) 0 units SC Q6 RAMOS Stop: 01/17/23 23:49 Last Admin: 12/19/22 06:08 Dose: 1 units Insulin Glargine (Lantus Per Unit Charge) 10 units SQ HS RAMOS Stop: 01/18/23 20:59 Lorazepam (Lorazepam 2 Mg/1 Ml Vial) 3 mg IV ONCE PRN; Protocol PRN Reason: EtOH Withdrawal AWSS Score 10+ Lorazepam (Lorazepam 2 Mg/1 Ml Vial) 2 mg IV UD PRN; Protocol PRN Reason: EtOH Withdrawal AWSS Score 8,9 Stop: 01/17/23 23:45 Lorazepam (Lorazepam 2 Mg/1 Ml Vial) 1 mg IV UD PRN; Protocol PRN Reason: EtOH Withdrawal AWSS Score 6,7 Stop: 01/17/23 23:45 Melatonin (Melatonin 3 Mg Tab) 3 mg PO HS PRN PRN Reason: insomnia Stop: 01/18/23 02:40 Miscellaneous (Carbohydrates For Hypoglycemia ) 15 - 30 gm PO UD PRN PRN Reason: Hypoglycemia Protocol Stop: 01/17/23 23:44 Multivitamins (Multivitamin Tab) 1 tab PO QAM RAMOS Stop: 01/18/23 08:59 Oxycodone HCl (Oxycodone Hcl Ir 5 Mg Tab (Immediate Release)) 5 - 10 mg PO QID PRN PRN Reason: Pain Stop: 01/01/23 22:39 Last Admin: 12/19/22 06:36 Dose: 10 mg Pantoprazole Sodium (Pantoprazole 40 Mg Tab) 40 mg PO BID [facility] Stop: 01/18/23 08:59 Paroxetine HCl (Paroxetine Hcl 20 Mg Tab) 20 mg PO QAM RAMOS Stop: 01/18/23 08:59 Thiamine HCl (Thiamine Hcl 100 Mg Tab) 100 mg PO QAM RAMOS Stop: 01/18/23 08:59
--- NOTE | 2022-12-19 11:14 | Pharmacy Report ---
Pharmacy Glycemic Short Note 2 - Date of Service December 19, 2022 - Glycemic Short BSG Results (Last 24 hours): 12/18/22 12/18/22 12/18/22 20:42 20:50 21:06 Glucose 480 H* POC Glucose 490 H* 442 H* 12/19/22 12/19/22 12/19/22 00:19 00:30 03:30 Glucose 70 POC Glucose 90 130 H 12/19/22 12/19/22 12/19/22 04:17 06:04 07:39 Glucose 128 H POC Glucose 152 H 115 H 12/19/22 10:46 Glucose POC Glucose 170 H OUTPATIENT ANTIDIABETIC REGIMEN: * Recent non-compliance * Previously on insulin, but stopped due to cost * Plan during prior admission was to discharge with glipizide, but patient left AMA HbA1c: 10.1% (12/18/22) ASSESSMENT: * JENNIFER is a 47 year old male recently hospitalized earlier this month and left AMA on 12/08/22 * Returned to ED with acute epigastric abdominal pain and hyperglycemia * Mild DKA noted based on baseline labs, anion gap now closed and serum bicarbonate normal * Presenting BSG of > 400 mg/dL, given 20 units of Lantus and 10 units of IV in sulin, patient showed profound response to IV insulin bolus with BSG a couple of hours later at 90 mg/dL * Prior admission, patient required ~10 units of basal/day. Will plan to decrease this evening. PLAN FOR INPATIENT GLYCEMIC CONTROL: * Basal insulin * Lantus 5 units SC BID * Bolus insulin * NovoLog per scale ACHS or Q6hrs while NPO * Goal Range: Low 110 mg/dL - High 140 mg/dL * Correction Factor: 25 mg/dL/unit * Nutritional / Prandial insulin per carb ratio of 1 unit per 9 grams CHO consumed
[2022-12-19] MEDS: HYDROmorphone INJ 0.5 MG/0.5 ML SYR IV PRN ×2 (12:58→18:56)
[2022-12-19] MEDS: FOLIC ACID 1 MG TAB PO SCH (13:07)
[2022-12-19] MEDS: THIAMINE HCL 100 MG TAB PO SCH (13:07)
[2022-12-19] MEDS: PARoxetine HCL 20 MG TAB PO SCH (13:07)
[2022-12-19] MEDS: PANTOprazole 40 MG TAB PO SCH ×2 (13:07→21:32)
[2022-12-19] MEDS: MULTIVITAMIN TAB PO SCH (13:07)
[2022-12-19] MEDS: ONDANSETRON INJ 2 MG/ML 2 ML VIAL IV PRN (18:50)
[2022-12-19] MEDS ORDERED: LANTUS PER UNIT CHARGE SQ SCH (21:00)
[2022-12-19] MEDS: LANTUS PER UNIT CHARGE SQ SCH (21:42)
[2022-12-20] MEDS: HYDROmorphone INJ 0.5 MG/0.5 ML SYR IV PRN ×4 (00:58→18:51)
[2022-12-20] MEDS: oxyCODONE HCL IR 5 MG TAB (IMMEDIATE RELEASE) PO PRN ×4 (04:43→22:31)
[2022-12-20] MEDS: GABAPENTIN 600 MG TAB PO SCH ×3 (05:31→23:53)
[2022-12-20 07:24] LABS: Hematocrit (blood only) 41.3 % (42.0-52.0); Hemoglobin 14.6 g/dl (14.0-18.0); Mean Corpuscular Hemoglobin 32.6 pg (25.0-34.0); Mean Corpuscular Hgb Conc 35.4 g/dL (32.0-36.0); Mean Corpuscular Volume 92.2 fL (80.0-100.0); Mean Platelet Volume 9.7 fL (9.4-12.4); Platelet Count 187 K/uL (130-400); RDW Coefficient of Variation 11.6 % (11.5-14.5); RDW Standard Deviation 39.3 fL (36.4-46.3); Red Blood Count 4.48 M/uL (4.70-6.10); White Blood Count 6.56 K/ul (4.8-10.8)
[2022-12-20 07:29] LABS: Albumin Globulin Ratio 1.3 (0.9-2); Albumin Level 3.5 gm/dl (3.4-5.0); BUN Creatinine Ratio 5.5 (10-20); Bilirubin,Total 0.6 mg/dl (0.2-1.0); Calcium 9.8 mg/dl (8.6-10.3); Creatinine Clr Calc Pharmacy 134.4 ml/min; Est GFR (African American) 126.2 ml/min; Est GFR (Non-African American) 108.9 ml/min; Globulin 2.8 gm/dl (2.5-4.0); Magnesium 1.8 mg/dl (1.7-2.4); Phosphorus 3.6 mg/dl (2.5-4.9); Total Protein 6.3 gm/dl (6.0-8.3)
[2022-12-20] MEDS: INSULIN ASPART PER UNIT CHARGE SC SCH ×4 (08:25→21:59)
[2022-12-20] MEDS: LANTUS PER UNIT CHARGE SQ SCH ×2 (09:20→21:59)
[2022-12-20] MEDS: PARoxetine HCL 20 MG TAB PO SCH (09:23)
[2022-12-20] MEDS: FOLIC ACID 1 MG TAB PO SCH (09:23)
[2022-12-20] MEDS: MULTIVITAMIN TAB PO SCH (09:23)
[2022-12-20] MEDS: THIAMINE HCL 100 MG TAB PO SCH (09:23)
[2022-12-20] MEDS: PANTOprazole 40 MG TAB PO SCH ×2 (09:23→21:42)
[2022-12-20] MEDS: ONDANSETRON INJ 2 MG/ML 2 ML VIAL IV PRN ×2 (09:56→23:12)
[2022-12-20] MEDS: ACETAMINOPHEN 1,000 MG/100 ML VIAL IV PRN (13:51)
--- NOTE | 2022-12-20 14:39 | XRay Report ---
XR chest 1V portable CLINICAL HISTORY: CXR TECHNIQUE: Single frontal radiograph of the chest was obtained. Comparison: Comparison is made to chest radiographs 12/18/2022 FINDINGS: No lines and tubes are seen. Cardiomegaly is noted. The lungs are clear. No evidence of pleural effus ion or pneumothorax. IMPRESSION: No acute chest disease. ACT 112: Negative or not required by law. Electronically signed by: Kg Moreira M.D. 12/20/2022 2:38 PM
--- NOTE | 2022-12-20 15:14 | CT Scan Report ---
CT head/brain wo con CLINICAL HISTORY: IRENE on Eliquis Technique: Contiguous axial CT images of the head were acquired from the base of the skull to the joe nicanor without intravenous contrast administration. Images were viewed in brain, subdural and bone [facility]. Automated dose lowering techniques and/or adjustment according to patient size were utilized for this exam. Comparison: Comparison is made to CT head 03/31/2020 Findings: The ventricles, basal cisterns, and cerebral sulci are normal. There is no acute intracranial hemorrh age or evidence of acute territorial infarction. Neither mass effect, shift of the midline structures , nor abnormal extra-axial fluid collections are shown. Opacification of the left maxillary sinus and mucous retention cyst in the right maxillary sinus. Opa cification of multiple ethmoid air cells noted. The orbits appear normal. There are no acute fractur es of the calvaria or scalp swelling. Impression: No acute intracranial hemorrhage, no evidence of acute territorial infarction or other acute intracra nial disease process. ACT 112: Negative or not required by law. Electronically signed by: Kg Moreira M.D. 12/20/2022 3:12 PM
[2022-12-20] MEDS: LACTATED RINGER'S 1,000 ML IV SCH ×2 (16:23→23:54)
[2022-12-20] MEDS: FAMOTIDINE 20 MG in SYRINGE 3 ML IV SCH ×2 (16:48→22:00)
[2022-12-20] MEDS: DICYCLOMINE HCL 10 MG CAP PO SCH ×2 (16:48→21:42)
--- NOTE | 2022-12-20 20:29 | Electrocardiogram Report ---
Test Reason : Blood Pressure : / mmHG Vent. Rate : 077 BPM Atrial Rate : 077 BPM P-R Int : 140 ms QRS Dur : 084 ms QT Int : 390 ms P-R-T Axes : 035 041 043 degrees QTc Int : 441 ms Normal sinus rhythm with sinus arrhythmia Normal ECG When compared with ECG of 06-DEC-2022 06:02, No significant change was found Confirmed by Danilo Grimes ([id number]) on 12/20/2022 8:29:41 PM Referred By: REFERRED SELF Confirmed By:Jere Grimes
[2022-12-20] MEDS: APIXABAN 5 MG TABLET PO SCH (21:43)
[2022-12-21] MEDS: HYDROmorphone INJ 0.5 MG/0.5 ML SYR IV PRN ×4 (01:00→19:02)
[2022-12-21] MEDS: oxyCODONE HCL IR 5 MG TAB (IMMEDIATE RELEASE) PO PRN ×4 (04:33→22:59)
[2022-12-21] MEDS: FOLIC ACID 1 MG TAB PO SCH (07:44)
[2022-12-21] MEDS: THIAMINE HCL 100 MG TAB PO SCH (07:44)
[2022-12-21] MEDS: PANTOprazole 40 MG TAB PO SCH ×2 (07:44→21:10)
[2022-12-21] MEDS: APIXABAN 5 MG TABLET PO SCH ×2 (07:44→21:10)
[2022-12-21] MEDS: FAMOTIDINE 20 MG in SYRINGE 3 ML IV SCH ×2 (07:44→21:24)
[2022-12-21] MEDS: DICYCLOMINE HCL 10 MG CAP PO SCH ×3 (07:44→21:10)
[2022-12-21] MEDS: MULTIVITAMIN TAB PO SCH (07:44)
[2022-12-21] MEDS: PARoxetine HCL 20 MG TAB PO SCH (07:44)
[2022-12-21] MEDS: INSULIN ASPART PER UNIT CHARGE SC SCH ×4 (07:51→21:24)
[2022-12-21] MEDS: LANTUS PER UNIT CHARGE SQ SCH (07:51)
[2022-12-21] MEDS: LACTATED RINGER'S 1,000 ML IV SCH ×2 (07:53→15:47)
[2022-12-21 08:11] LABS: Hematocrit (blood only) 38.4 % (42.0-52.0); Hemoglobin 13.6 g/dl (14.0-18.0); Mean Corpuscular Hemoglobin 32.9 pg (25.0-34.0); Mean Corpuscular Hgb Conc 35.4 g/dL (32.0-36.0); Mean Corpuscular Volume 92.8 fL (80.0-100.0); Mean Platelet Volume 9.5 fL (9.4-12.4); Platelet Count 151 K/uL (130-400); RDW Coefficient of Variation 11.2 % (11.5-14.5); RDW Standard Deviation 38.2 fL (36.4-46.3); Red Blood Count 4.14 M/uL (4.70-6.10); White Blood Count 4.99 K/ul (4.8-10.8)
[2022-12-21] MEDS: ONDANSETRON INJ 2 MG/ML 2 ML VIAL IV PRN (08:20)
[2022-12-21 08:21] LABS: BUN Creatinine Ratio 4.3 (10-20); Calcium 9.5 mg/dl (8.6-10.3); Creatinine Clr Calc Pharmacy 140.1 ml/min; Est GFR (African American) 128.4 ml/min; Est GFR (Non-African American) 110.8 ml/min; Magnesium 1.7 mg/dl (1.7-2.4); Phosphorus 3.6 mg/dl (2.5-4.9); Potassium 3.9 mmol/L (3.5-5.1)
--- NOTE | 2022-12-21 10:26 | Electrocardiogram Report ---
Test Reason : Blood Pressure : / mmHG Vent. Rate : 079 BPM Atrial Rate : 079 BPM P-R Int : 154 ms QRS Dur : 082 ms QT Int : 368 ms P-R-T Axes : 073 060 054 degrees QTc Int : 421 ms Normal sinus rhythm with sinus arrhythmia Normal ECG When compared with ECG of 20-DEC-2022 14:32, No significant change was found Confirmed by Danilo Grimes ([id number]) on 12/21/2022 10:26:24 AM Referred By: REFERRED SELF Confirmed By:Jere Grimes
[2022-12-21] MEDS: GABAPENTIN 600 MG TAB PO SCH (12:21)
--- NOTE | 2022-12-21 13:05 | Pharmacy Report ---
Pharmacy Glycemic Short Note 2 - Date of Service December 21, 2022 - Glycemic Short BSG Results (Last 24 hours): 12/20/22 12/20/22 12/20/22 13:38 16:29 21:38 Glucose POC Glucose 182 H 240 H 164 H 12/21/22 12/21/22 12/21/22 07:24 07:44 11:13 Glucose 225 H POC Glucose 216 H 109 H OUTPATIENT ANTIDIABETIC REGIMEN: * Recent non-compliance * Previously on insulin, but stopped due to cost * Plan during prior admission was to discharge with glipizide, but patient left AMA HbA1c: 10.1% (12/18/22) ASSESSMENT: 12/21/22: * BSGs labile yesterday, ranging 52-240 mg/dL, of note, patient did not receive any lunch insulin although it was likely warranted * CF loosened in light of hypoglycemia mid-morning * Received 17 units of insulin (10 units of basal and 7 units of prandial/correctional bolus) * Will allow for increased basal dose today pending BSG (see EHR) 12/19/22: * JENNIFER is a 47 year old male recently hospitalized earlier this month and left AMA on 12/08/22 * Returned to ED with acute epigastric abdominal pain and hyperglycemia * Mild DKA noted based on baseline labs, anion gap now closed and serum bicarbonate normal * Presenting BSG of > 400 mg/dL, given 20 units of Lantus and 10 units of IV insulin, patient showed profound response to IV insulin bolus with BSG a couple of hours later at 90 mg/dL * Prior admission, patient required ~10 units of basal/day. Will plan to decrease this evening. PLAN FOR INPATIENT GLYCEMIC CONTROL: * Basal insulin * Lantus 5-8 units SC BID (see EHR for details) * Bolus insulin * NovoLog per scale ACHS or Q6hrs while NPO * Goal Range: Low 110 mg/dL - High 140 mg/dL * Correction Factor: 35 mg/dL/unit * Nutritional / Prandial insulin per carb ratio of 1 unit per 9 grams CHO consumed
--- NOTE | 2022-12-21 16:03 | Hospitalist Progress Note ---
Date of Service December 21, 2022 Assessment & Plan (1) Hyperglycemic crisis in diabetes mellitus: Plan: Hyperglycemic crisis in DM/mild DKA DM2 insulin requiring , suboptimal control Secondary to medical noncompliance, A1c of 10.1 on 12/18/2022. fund director on board. Patient agreeable to use once daily Lantus at time of discharge. He will need 1.) Lantus solostar pen. 2.) Pen Needle 32 gauge at time of discharge per dental hygiene professor. Had hypoglycemic event early this admission, glycemic pharmacy on board, appreciate recommendation. LGIB, history of PE/DVT on Eliquis: No further BRBPR, Eliquis has been resumed, hemoglobin is stable. GI evaluated, appreciate recs. Alcoholic gastritis - cont. PPI, add famotidine, DT precautions, RHETT S protocol Chronic pancreatitis related abdominal pain-patient reports some improvement in his abdominal pain and would like to advance his diet. Advance diet as tolerated. GI evaluated, adding Creon. It will cost $3 per month for the patient per his insurance. Patient advised in detail regarding alcohol cessation, patient verbalizes understanding. Continue pain management medications per home schedule with additional here, reassess need for pain medication. Consider outpatient pain management follow- up. Other chronic medical conditions: Resume home meds as able history GERD/Renae's esophagus history of chronic pain, hx narcotic abuse as per records/terminated medication agreement. ADD/mood disorder as per records DVT prophylaxis : Patient on Eliquis Full code Admission and Anticipated Discharge Date Admission Date: December 18, 2022 Subjective Patient seen and examined at bedside as a follow-up of hyperglycemic crisis and diabetes mellitus secondary to medical noncompliance, LGIB, alcoholic gastritis, chronic pancreatitis related abdominal pain. Patient was lying in bed, on room air, NAD, reports overall slowly improving abdominal pain, would like to try more solid diet today, advance diet as tolerated, denies acute issues overnight. Patient counseled in depth regarding the need for alcohol cessation given his chronic pancreatitis and risk for various cancers. Physical Exam Physical Exam: GENERAL: Alert and oriented x3. NAD, on RA. HEENT: No pallor, no icterus. Pupils equal, round and reactive to light. Oral mucosa moist. NECK: No JVD, no neck masses. HEART: S1 and S2 heard. Regular rate and rhythm. No murmur, no gallop. RESPIRATORY SYSTEM: Normal AP diameter. No accessory muscle use. No wheezing, no crackles. ABDOMEN: Soft, bowel sounds present, epigastric tender, no distention. CENTRAL NERVOUS SYSTEM: No facial droop. Speech is clear. Obeys simple commands. Moves extremities. EXTREMITIES: No edema, no erythema seen. Results & Data Results & Data Vital Signs (Past 12 Hours) Vital Signs Temp Pulse Pulse Pulse Resp BP Pulse Ox 12/21/22 15:12 36.8 C 73 20 99/63 L 95 12/21/22 14:07 84 12/21/22 14:07 85 12/21/22 10:58 36.4 C L 78 18 115/77 97 12/21/22 08:13 36.6 C 79 18 114/74 95 O2 Del Method 12/21/22 15:12 Room Air 12/21/22 14:07 12/21/22 14:07 12/21/22 10:58 Room Air 12/21/22 08:13 Room Air
[2022-12-21] MEDS: PANCREAZE (LIPASE 10,500U) CAP PO SCH (18:15)
[2022-12-21] MEDS ORDERED: LANTUS PER UNIT CHARGE SQ SCH (21:00)
[2022-12-21] MEDS ORDERED: HYDROmorphone INJ 0.5 MG/0.5 ML SYR IV STA (21:01)
[2022-12-22] MEDS: LACTATED RINGER'S 1,000 ML IV SCH ×3 (00:07→15:24)
[2022-12-22] MEDS: HYDROmorphone INJ 0.5 MG/0.5 ML SYR IV PRN ×4 (01:05→19:57)
[2022-12-22] MEDS: oxyCODONE HCL IR 5 MG TAB (IMMEDIATE RELEASE) PO PRN ×4 (05:01→23:55)
[2022-12-22 09:39] LABS: BUN Creatinine Ratio 4.7 (10-20); Calcium 9.3 mg/dl (8.6-10.3); Creatinine Clr Calc Pharmacy 153.2 ml/min; Est GFR (African American) 133.3 ml/min; Magnesium 1.6 mg/dl (1.7-2.4); Phosphorus 3.1 mg/dl (2.5-4.9); Potassium 3.7 mmol/L (3.5-5.1)
[2022-12-22] MEDS: THIAMINE HCL 100 MG TAB PO SCH (09:43)
[2022-12-22] MEDS: PANTOprazole 40 MG TAB PO SCH ×2 (09:43→20:01)
[2022-12-22] MEDS: DICYCLOMINE HCL 10 MG CAP PO SCH ×3 (09:43→20:05)
[2022-12-22] MEDS: FOLIC ACID 1 MG TAB PO SCH (09:43)
[2022-12-22] MEDS: PANCREAZE (LIPASE 10,500U) CAP PO SCH ×3 (09:43→17:51)
[2022-12-22] MEDS: APIXABAN 5 MG TABLET PO SCH ×2 (09:43→20:04)
[2022-12-22] MEDS: MULTIVITAMIN TAB PO SCH (09:45)
[2022-12-22] MEDS: INSULIN ASPART PER UNIT CHARGE SC SCH ×4 (09:45→22:18)
[2022-12-22] MEDS: PARoxetine HCL 20 MG TAB PO SCH (09:45)
[2022-12-22] MEDS: FAMOTIDINE 20 MG in SYRINGE 3 ML IV SCH (11:33)
[2022-12-22] MEDS ORDERED: GABAPENTIN 600 MG TAB PO SCH (12:00)
[2022-12-22] MEDS ORDERED: LANTUS PER UNIT CHARGE SC SCH ×2 (12:00→21:00)
--- NOTE | 2022-12-22 14:11 | Pharmacy Report ---
Pharmacy Glycemic Short Note 2 - Date of Service December 22, 2022 - Glycemic Short BSG Results (Last 24 hours): 12/21/22 12/21/22 12/21/22 16:59 19:47 20:32 Glucose POC Glucose 124 H 82 122 H 12/22/22 12/22/22 12/22/22 07:35 08:49 11:22 Glucose 239 H POC Glucose 228 H 208 H OUTPATIENT ANTIDIABETIC REGIMEN: * Recent non-compliance * Previously on insulin, but stopped due to cost * Plan during prior admission was to discharge with glipizide, but patient left AMA HbA1c: 10.1% (12/18/22) ASSESSMENT: 12/22: * BSGs yesterday were [phone] mg/dl. Patient received total of 18 units of insulin yesterday; 10 units of basal and 8 units of bolus. * Fasting BSG today was 228 m/dl. Basal insulin was held this AM to try to do only once daily basal insulin at HS. However, since pre-lunch BSG was elevated, 5 units x1 of basal given at noon today. AM Novolog dose was given late, so this may be the reason for pre-lunch BSG being above 200 mg/dl today. * Since fasting BSG seems to be the highest BSG for the day, increased basal dose at HS to 10 units. 12/21/22: * BSGs labile yesterday, ranging 52-240 mg/dL, of note, patient did not receive any lunch insulin although it was likely warranted * CF loosened in light of hypoglycemia mid-morning * Received 17 units of insulin (10 units of basal and 7 units of prandial/correctional bolus) * Will allow for increased basal dose today pending BSG (see EHR) 12/19/22: * JENNIFER is a 47 year old male recently hospitalized earlier this month and left AMA on 12/08/22 * Returned to ED with acute epigastric abdominal pain and hyperglycemia * Mild DKA noted based on baseline labs, anion gap now closed and serum bicarbonate normal * Presenting BSG of > 400 mg/dL, given 20 units of Lantus and 10 units of IV insulin, patient showed profound response to IV insulin bolus with BSG a couple of hours later at 90 mg/dL * Prior admission, patient required ~10 units of basal/day. Will plan to decrease this evening. PLAN FOR INPATIENT GLYCEMIC CONTROL: * Basal insulin * Lantus 5 units SC x 1 at noon today * Lantus 10 units SC HS * Bolus insulin * NovoLog per scale ACHS or Q6hrs while NPO * Goal Range: Low 110 mg/dL - High 140 mg/dL * Correction Factor: 30 mg/dL/unit * Nutritional / Prandial insulin per carb ratio of 1 unit per 9 grams CHO consumed
--- NOTE | 2022-12-22 16:21 | Hospitalist Progress Note ---
Date of Service December 22, 2022 Assessment & Plan (1) Hyperglycemic crisis in diabetes mellitus: Plan: Hyperglycemic crisis in DM/mild DKA DM2 insulin requiring , suboptimal control Secondary to medical noncompliance, A1c of 10.1 on 12/18/2022. early childhood special educator on board. Patient agreeable to use once daily Lantus at time of discharge. He will need 1.) Lantus solostar pen. 2.) Pen Needle 32 gauge at time of discharge per para educator. Had hypoglycemic event early this admission, glycemic pharmacy on board, appreciate recommendation. LGIB, history of PE/DVT on Eliquis: No further BRBPR, Eliquis has been resumed, hemoglobin is stable. GI evaluated, appreciate recs. Alcoholic gastritis - cont. PPI, add famotidine, DT precautions, AWSS protocol Chronic pancreatitis related abdominal pain-patient reports some improvement in his abdominal pain and is tolerating diet advancement. Agreeable to use of Creon, will cost $3 per month for him. GI evaluated, recommends adding Creon. Patient advised in detail regarding alcohol cessation, patient verbalizes understanding. Continue pain management medications per home schedule with additional here, reassess need for pain medication. Consider outpatient pain management follow- up. Other chronic medical conditions: Resume home meds as able history GERD/Renae's esophagus history of chronic pain, hx narcotic abuse as per records/terminated medication agreement. ADD/mood disorder as per records DVT prophylaxis : Patient on Eliquis Full code Admission and Anticipated Discharge Date Admission Date: December 18, 2022 Subjective Patient seen and examined at bedside as a follow-up of hyperglycemic crisis and diabetes mellitus secondary to medical noncompliance, LGIB, alcoholic gastritis, chronic pancreatitis related abdominal pain. Patient was lying in bed, on room air, NAD, reports overall slowly improving abdominal pain and tolerating diet, moving bowels ok, denies acute issues overnight. Patient counseled in depth regarding the need for alcohol cessation given his chronic pancreatitis and risk for various cancers. Also d/w patient regarding Creon and it costing 3$ per month for him, he was agreeable to start creon while in hospital. Physical Exam Physical Exam: GENERAL: Alert and oriented x3. NAD, on RA. HEENT: No pallor, no icterus. Pupils equal, round and reactive to light. Oral mucosa moist. NECK: No JVD, no neck masses. HEART: S1 and S2 heard. Regular rate and rhythm. No murmur, no gallop. RESPIRATORY SYSTEM: Normal AP diameter. No accessory muscle use. No wheezing, no crackles. ABDOMEN: Soft, bowel sounds present, epigastric tender - improving, no distention. CENTRAL NERVOUS SYSTEM: No facial droop. Speech is clear. Obeys simple commands. Moves extremities. EXTREMITIES: No edema, no erythema seen. Results & Data Results & Data Vital Signs (Past 12 Hours) Vital Signs Temp Pulse Pulse Resp BP Pulse Ox O2 Del Method 12/22/22 15:02 36.4 C 68 18 107/68 96 Room Air 12/22/22 11:34 36.5 C 67 18 109/68 98 Room Air 12/22/22 08:07 65 12/22/22 07:44 36.7 C 67 18 118/74 96 Room Air
[2022-12-22] MEDS: MAGNESIUM SULFATE / D5W 1 GM/100 ML BAG IV SCH ×2 (17:49→20:04)
[2022-12-22] MEDS: FAMOTIDINE 20 MG TAB PO SCH (20:01)
[2022-12-23] MEDS: HYDROmorphone INJ 0.5 MG/0.5 ML SYR IV PRN ×2 (02:10→08:14)
[2022-12-23] MEDS: LACTATED RINGER'S 1,000 ML IV SCH ×2 (03:28→09:54)
[2022-12-23] MEDS: oxyCODONE HCL IR 5 MG TAB (IMMEDIATE RELEASE) PO PRN (06:24)
[2022-12-23 07:45] VITALS: TEMP 98.2; O2SAT 99
[2022-12-23] MEDS: INSULIN ASPART PER UNIT CHARGE SC SCH (08:13)
[2022-12-23] MEDS: APIXABAN 5 MG TABLET PO SCH (08:19)
[2022-12-23] MEDS: DICYCLOMINE HCL 10 MG CAP PO SCH (08:19)
[2022-12-23] MEDS: FAMOTIDINE 20 MG TAB PO SCH (08:19)
[2022-12-23] MEDS: PANTOprazole 40 MG TAB PO SCH (08:20)
[2022-12-23] MEDS: THIAMINE HCL 100 MG TAB PO SCH (08:20)
[2022-12-23] MEDS: FOLIC ACID 1 MG TAB PO SCH (08:20)
[2022-12-23] MEDS: MULTIVITAMIN TAB PO SCH (08:20)
[2022-12-23] MEDS: PARoxetine HCL 20 MG TAB PO SCH (08:20)
[2022-12-23] MEDS: PANCREAZE (LIPASE 10,500U) CAP PO SCH (08:20)
[2022-12-23] MEDS ORDERED: LANTUS PER UNIT CHARGE SC SCH ×2 (09:00)
--- NOTE | 2022-12-23 10:44 | Discharge Summary ---
Date of Service December 23, 2022 Admission HPI Per Admitting Provider History is obtained from the patient and records. Medical history is significant for ADD/mood disorder as per records, DM2 insulin requiring, GERD/Renae's esophagus, recurrent alcoholic pancreatitis, hx PE as per records, recurrent DVT on Eliquis, history of chronic pain, hx narcotic abuse as per records/terminated medication agreement, noncompliance as per records. Monthly admissions since October 2022 for abdominal pain in the setting of alcohol abuse. Last confinement December 04-December 08, 2022 for alcohol withdrawal. Patient signed out AGAINST MEDICAL ADVICE because he was waiting too long for hospital provider to discharge him. Patient claims he went to alcohol rehab after leaving the hospital. Patient started drinking again last week. Worsening achy epigastric pain going to his chest the last few days. Transient rectal bleeding without fever, chills as per patient. No unusual shortness of breath. Unable to take home medications at home because he did not have any prescriptions. Blood sugar 480s upon arrival at the ER. IV insulin administered at the ER. IV insulin administered at the ER. MEDICAL HISTORY: As above. SURGERIES: Appendectomy, cholecystectomy, vascular device placement, back francois helene FAMILY HISTORY: There is a family history of mood disorder. Alcoholism, heart disease. 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 Per Admitting Provider GENERAL: Comfortable, alcoholic fetor, no respiratory distress SKIN: Normal color, warm HEENT: Alopecia, pink palpebral conjunctivae, no ptosis, dry buccal mucosa NECK : Supple, short neck, no tenderness CHEST : CTA, no tenderness HEART : Tachycardic, no obvious murmurs ABDOMEN: Some distention, epigastric tenderness EXTREMITIES : No LE swelling, no LE tenderness NEUROLOGIC : Coherent, no facial asymmetry, gait and stance not assessed Principal Diagnosis Hyperglycemic crisis in diabetic mellitus Noncompliance with diabetes management Noncompliance with chronic pancreatitis management/failed to f/u outpatient GI follow-up Chronic pancreatitis related abdominal pain, improved LGIB, improved Chronic alcohol abuse Discharge Exam GENERAL: Alert and oriented x3. NAD, on RA. HEENT: No pallor, no icterus. Pupils equal, round and reactive to light. Oral mucosa moist. NECK: No JVD, no neck masses. HEART: S1 and S2 heard. Regular rate and rhythm. No murmur, no gallop. RESPIRATORY SYSTEM: Normal AP diameter. No accessory muscle use. No wheezing, no crackles. ABDOMEN: Soft, bowel sounds present, epigastric tender - improving, no distention. CENTRAL NERVOUS SYSTEM: No facial droop. Speech is clear. Obeys simple commands. Moves extremities. EXTREMITIES: No edema, no erythema seen. Discharge Data Allergies Allergy/AdvReac Type Severity Reaction Status Date / Time No Known Allergies Allergy Verified 12/04/22 21:48 Consultations 12/18/22 22:25 ED Decision to Admit Stat 12/19/22 01:44 Consult Gastroenterology Routine Ordered Studies 12/18/22 23:35 CT Abd and Pelvis [CT abd pelvis IV con only] Stat 12/20/22 14:09 CT head/brain wo con Stat Diabetes Follow up Diabetes Follow-up Needed for HgbA1c >9% Hospital Course (1) Hyperglycemic crisis in diabetes mellitus: He was managed for the following: Hyperglycemic crisis in DM/mild DKA: Noncompliant with DM meds DM2 insulin requiring , suboptimal control Secondary to medical noncompliance, A1c of 10.1 on 12/18/2022. religious educator on board. Patient agreeable to use once daily Lantus at time of discharge. He will need 1.) Lantus solostar pen. 2.) Pen Needle 32 gauge at time of discharge per chemical educator. Had hypoglycemic event early this admission, glycemic pharmacy on board, appreciate recommendation. LGIB, history of PE/DVT on Eliquis: No further BRBPR, Eliquis has been resumed, hemoglobin is stable. GI evaluated, appreciate recs. Need to follow-up with GI on discharge, patient aware. Alcoholic gastritis - cont. PPI, add famotidine, DT precautions, AWSS protocol. Chronic pancreatitis related abdominal pain-significant improvement in his epigastric tenderness on exam, tolerating diet very well. Continue use of Creon, will cost $3 per month for him. GI evaluated, recommends adding Creon. Patient advised in detail regarding alcohol cessation, patient verbalizes understanding. Consider continuing home pain management as prior. Consider outpatient pain management follow-up. Other chronic medical conditions: Resume home meds as able history GERD/Renae's esophagus history of chronic pain, hx narcotic abuse as per records/terminated medication agreement. ADD/mood disorder as per records DVT prophylaxis : Patient on Eliquis Full code Patient insisted on having quick discharge or he will leave AMA. Between various patient urgent needs/emergencies, I had to see him in [place]. Patient being discharged to home with following instruction at the point of discharge: Follow-up with your primary care physician within a week time and likely you will need labs CBC/CMP/magnesium/phosphorus. For your chronic pancreatitis and related epigastric abdominal pain, and LGI b leed, follow-up with your GI doctor in 2 to 3 weeks time for possible outpatient EGD scope/EUS and colonoscopy. For your diabetes, closely follow-up with your PCP for long-term management or establish with diabetic clinic. Maintain compliance with your diabetic medications as prescribed. Keep candy/orange juices by your side all the time for any event of hypoglycemia as discussed at the bedside. For your chronic pancreatitis related epigastric pain, recommend alcohol abstinence and recommend adherence with Creon. If pain comes back again, you will likely need follow-up with your PCP or pain management clinic for further evaluation and pain management prescription. Take your medications as prescribed. Please make sure that you are able to get your medications today by calling your pharmacy before you leave the hospital so that your treatment continuity is not broken. Home Health Attestation I certify that this patient is under my care and that I, or a physicians community assistant working with me, had a face to-face encounter that meets the home health [id number] encounter requirements with this patient. The encounter with the patient was in whole, or in part, for the following medical condition, which is the primary reason for home health care (list medical condition): I certify that, based on my findings, the following services are medically necessary home health services: My clinical findings support the need for the above services because: Further, I certify that my clinical findings support that this patient is homebound (i.e. absences from home require considerable and taxing effort and are for medical reasons or sabianism services or infrequently or of short duration when for other reasons) because: Certification for Home Health Services: Based on the above findings, I certify that this patient is confined to the home and needs intermittent detention care, physical therapy and/or speech therapy or continues to need occupational therapy. The patient is under my care, and I have initiated the establishment of the plan of care. This patient will be followed by a physician who will periodically review the plan of care. Total Time Total Time Spent Total Time Spent (In Minutes): 50 Discharge Plan Discharge Items Patient Disposition: Home - Self-Care Reason For Visit: HYPERGLYCEMIC CRISIS, LGIB Discharge Diagnosis: Hyperglycemic crisis in diabetic mellitus Noncompliance with diabetes management Noncompliance with chronic pancreatitis management/failed to f/u outpatient GI follow-up Chronic pancreatitis related abdominal pain, improved LGIB, improved Chronic alcohol abuse Condition on Discharge: Fair Activity: Resume your previous activity Non-emergency contact: Primary Care Provider Call non-emergency contact if: you have any medication questions Follow-up/Referrals: Dhiraj Myers DO [Primary Care Provider] - (Date & Time 12/27/2022 11:00 AM Provider Dhiraj Myers DO Department [facility] ) Diet: Carb Consistent or DM2 and Low Fat Addtl Attending Provider Instructions: Follow-up with your primary care physician within a week time and likely you will need labs CBC/CMP/magnesium/phosphorus. For your chronic pancreatitis and related epigastric abdominal pain, and LGI bleed, follow-up with your GI doctor in 2 to 3 weeks time for possible outpatient EGD scope/EUS and colonoscopy. For your diabetes, closely follow-up with your PCP for long-term management or establish with diabetic clinic. Maintain compliance with your diabetic medications as prescribed. Keep candy/orange juices by your side all the time for any event of hypoglycemia as discussed at the bedside. For your chronic pancreatitis related epigastric pain, recommend alcohol abstinence and recommend adherence with Creon. If pain comes back again, you will likely need follow-up with your PCP or pain management clinic for further evaluation and pain management prescription. Take your medications as prescribed. Please make sure that you are able to get your medications today by calling your pharmacy before you leave the hospital so that your treatment continuity is not broken. Pending Studies at Discharge: No Stand-Alone Forms: My [employer], Smoking Cessation Medications and DC Order Prescriptions: New Creon 24,000-76,000 -120,000 unit capsule,delayed release(DR/EC) 1 cap PO TID Qty: 90 0RF Rx Instructions: administer with meals and/or snacks dicyclomine 10 mg Capsule 10 mg PO TID PRN (Reason: abdominal pain) Qty: 90 0RF folic acid 1 mg Tablet 1 mg PO QAM Qty: 30 0RF multivitamin with folic acid [Daily-Chriss (with folic acid)] 400 mcg Tablet 1 tab PO QAM Qty: 30 0RF thiamine HCl (vitamin B1) 100 mg Tablet 100 mg PO QAM Qty: 14 0RF insulin glargine [Lantus Solostar U-100 Insulin] 100 unit/mL (3 mL) insulin pen 15 unit subcut DAILY Qty: 15 0RF (DME) pen needle, diabetic [Pen Needle] 32 gauge x 5/32" needle See Rx Instructions .ROUTE Qty: 100 0RF Rx Instructions: once daily Continued paroxetine HCl 20 mg tablet 20 mg PO QAM acetaminophen [Tylenol] 325 mg capsule 650 mg PO BID PRN (Reason: Fever Or Pain) Eliquis 5 mg tablet 5 mg PO BID hydroxyzine pamoate 25 mg capsule 25 - 50 mg PO Q6 PRN (Reason: Anxiety) oxycodone 5 mg Tablet 5 mg PO Q8H PRN (Reason: pain) Qty: 8 0RF diazepam 10 mg tablet 10 mg PO DIRECTED PRN (Reason: CIWA score) gabapentin 300 mg capsule 300 mg PO DAILY Rx Instructions: taper insulin lispro 100 unit/mL solution 0 sliding scale dose subcut UD ondansetron HCl 4 mg tablet 4 mg PO Q6 PRN (Reason: Nausea) melatonin 3 mg tablet 3 - 6 mg PO HS calcium carbonate [Tums] 200 mg calcium (500 mg) tablet,chewable 400 mg PO Q4 PRN (Reason: as directed) Changed pantoprazole 40 mg Tablet,Delayed Release (Dr/Ec) 40 mg PO BID Qty: 60 0RF Discontinued insulin glargine [Lantus Solostar U-100 Insulin] 100 unit/mL (3 mL) insulin pen 20 unit SUBCUT HS Discharge Orders: Discharge Order (Routine); Ordered 12/23/22 Ordered By: Emanuel Flood Admission Data Admit Date/Time: 12/18/22 23:43 Attending Provider: Emanuel Flood Admit Provider: Bishop Enamorado Primary Care Provider: Dhiraj Myers Other Providers: Bishop Enamorado ; Ino Alvares ; Riley Lowery ; Jen Reynolds ; Roselyn Peters ; Mila Lovelace ; Ijeoma Goins ; Jarad Montgomery ; Homero Mullen ; Deborah Molina ; Sanjay Bass ; Colton Moreland ; Christina Gill ; Margaret Banegas ; Marika Parrish ; So Prakash ; Camila Gentile ; Ye Tsang ; Brian Barrett ; Yue Pena ; Asaf Marshall Jr
[2022-12-23 10:57] VITALS: BP 113/76; PULSE 85
== END 2022-12-23 11:00 | disposition home or self-care (01) | DRG 638 ==
LOC: ED 20:02 → SUATTDRO 23:43 → EDINP 23:43 → 2N 12-19 02:41

== ENCOUNTER 2023-01-02 23:59 | Inpatient (IN) ==
[2023-01-03] MEDS ORDERED: SODIUM CHLORIDE 0.9% 500 ML IV ONE (00:53)
[2023-01-03] MEDS ORDERED: HYDROmorphone INJ 0.5 MG/0.5 ML SYR IV STA (00:53)
[2023-01-03] MEDS ORDERED: ONDANSETRON INJ 2 MG/ML 2 ML VIAL IV STA (00:53)
[2023-01-03 01:10] LABS: Basophils # (auto) 0.08 K/uL (0-0.2); Basophils % (auto) 1.1 %; Eosinophils # (auto) 0.34 K/uL (0-0.50); Eosinophils % (auto) 4.8 %; Hematocrit (blood only) 38.5 % (42.0-52.0); Hemoglobin 14.1 g/dl (14.0-18.0); Immature Granulocytes # (auto) 0.01 K/uL (0.01-0.20); Immature Granulocytes % (auto) 0.1 %; Lymphocytes # (auto) 1.99 K/uL (1.2-3.4); Lymphocytes % (auto) 27.9 %; Mean Corpuscular Hemoglobin 33.1 pg (25.0-34.0); Mean Corpuscular Hgb Conc 36.6 g/dL (32.0-36.0); Mean Corpuscular Volume 90.4 fL (80.0-100.0); Mean Platelet Volume 9.6 fL (9.4-12.4); Monocytes # (auto) 0.48 K/uL (0.11-0.59); Monocytes % (auto) 6.7 %; Neutrophils # (auto) 4.22 K/uL (1.40-6.50); Neutrophils % (auto) 59.4 %; Platelet Count 247 K/uL (130-400); RDW Coefficient of Variation 11.6 % (11.5-14.5); RDW Standard Deviation 37.6 fL (36.4-46.3); Red Blood Count 4.26 M/uL (4.70-6.10); White Blood Count 7.12 K/ul (4.8-10.8)
[2023-01-03 01:17] LABS: Albumin Globulin Ratio 1.2 (0.9-2); Albumin Level 3.8 gm/dl (3.4-5.0); BUN Creatinine Ratio 8.1 (10-20); Bilirubin,Total 0.5 mg/dl (0.2-1.0); Calcium 9.2 mg/dl (8.6-10.3); Creatinine Clr Calc Pharmacy 132.5 ml/min; Est GFR (African American) 125.5 ml/min; Est GFR (Non-African American) 108.3 ml/min; Globulin 3.3 gm/dl (2.5-4.0); Potassium 3.4 mmol/L (3.5-5.1); Total Protein 7.1 gm/dl (6.0-8.3)
[2023-01-03 01:25] LABS: Appearance Urine Clear (Clear); Bilirubin Urine Negative (Negative); Blood Urine Negative (Negative); Color Urine Yellow; Glucose Urine UA 3+ (Negative); Ketones Urine Negative (Negative); Leukocyte Esterase Urine Negative (Negative); Nitrite Urine Negative (Negative); Protein Urine Negative (Negative); Specific Gravity Urine 1.005 (1.000-1.030); Urobilinogen Urine Negative (Negative); pH Urine 5.5 (4.5-7.5)
[2023-01-03] MEDS ORDERED: THIAMINE HCL 100 MG, FOLIC ACID 1 MG in SODIUM CHLORIDE 0.9% 1000ML 1,000 ML IV STA (01:26)
[2023-01-03] MEDS ORDERED: CEROVITE ADV FORMULA TAB PO STA (01:26)
[2023-01-03] MEDS ORDERED: OPTIRAY 320 100ml IV ONE (02:08)
--- NOTE | 2023-01-03 03:24 | CT Scan Report ---
Exam(s): CT ABDOMEN + PELVIS With Contrast IV Amt: 89ml Optiray 320 EXAM: CT Abdomen and Pelvis With Intravenous Contrast CLINICAL HISTORY: Reason for exam: eval for pancreatitis. TECHNIQUE: Axial computed tomography images of the abdomen and pelvis with intravenous contrast. Automated exposure control was utilized for the study. A dose lowering technique was utilized adhering to the principles of ALARA. CONTRAST: Patient received 89ml Optiray 320 of IV contrast COMPARISON: 12/19/2022 FINDINGS: ABDOMEN: Liver: Unremarkable. Gallbladder and bile ducts: Cholecystectomy. Pancreas: Calcifications within the pancreas consistent with sequela of chronic pancreatitis. There is a stone within the duct at the neck causing upstream dilatation and atrophy. Spleen: Unremarkable. Adrenals: Unremarkable. Kidneys and ureters: Unremarkable. No obstructing stones. No hydronephrosis. Stomach and bowel: Unremarkable. PELVIS: Appendix: No findings to suggest acute appendicitis. Bladder: Unremarkable. Reproductive: Unremarkable as visualized. ABDOMEN and PELVIS: Intraperitoneal space: Unremarkable. No free air. No significant fluid collection. Bones/joints: No acute fracture. Soft tissues: Unremarkable. Vasculature: Portosystemic varices. Lymph nodes: Unremarkable. IMPRESSION: Calcifications within the pancreas consistent with sequela of chronic pancreatitis. There is a stone within the duct at the neck causing upstream dilatation and atrophy. Electronically signed by: Blake Corley MD 01/03/23 03:23 AM
[2023-01-03] MEDS ORDERED: HYDROmorphone INJ 1 MG/ML SYRINGE IV STA (04:03)
[2023-01-03] MEDS ORDERED: POTASSIUM CHLORIDE CRTAB 20 MEQ TABCR PO STA (04:46)
[2023-01-03] MEDS ORDERED: LACTATED RINGER'S 1,000 ML IV STA (04:50)
[2023-01-03] MEDS ORDERED: POTASSIUM CHLORIDE PWD 20 MEQ PACK PO STA (05:24)
[2023-01-03] MEDS ORDERED: GABAPENTIN 600 MG TAB PO STA (05:26)
[2023-01-03] MEDS ORDERED: GABAPENTIN 1200MG ALCOHOL WITHDRAWAL LOAD PO STA (05:30)
[2023-01-03] MEDS ORDERED: Ativan IV Alcohol Withdrawal--Active Protocol IV PRN (05:30)
[2023-01-03] MEDS ORDERED: ACETAMINOPHEN 1,000 MG/100 ML VIAL IV PRN (05:30)
[2023-01-03] MEDS ORDERED: LORazepam 2 MG/1 ML VIAL IV PRN ×3 (05:30)
[2023-01-03] MEDS ORDERED: ACETAMINOPHEN 325 MG TAB PO PRN (05:33)
--- NOTE | 2023-01-03 05:38 | History & Physical Report ---
Date of Service January 03, 2023 Assessment & Plan (1) Abdominal pain: Plan: hx chronic alcoholic pancreatitis Suspect drug-seeking behavior given recurrent pattern of EtOH abuse, ER visits for 'pancreatitis flareup' demanding for IV narcotics followed by signing out A [facility] after a few days of confinement history of chronic pain, hx narcotic abuse as per records/terminated medication agreement Mild tachycardia, possible beginning alcohol withdrawal history GERD/Renae's esophagus on PPI DM2 insulin requiring , suboptimal control as of recent hemoglobin A1c of 10.1 this month history of PE/DVT on Eliquis ADD/mood disorder as per records Hypokalemia secondary to emesis, home insulin/sulfonylureas Rx OBS Medical telemetry given tachycardia Analgesia, judicious narcotic use given history drug abuse as per records DT precautions, RHETT S protocol Replace potassium basal bolus insulin, ISS BG goal 110-140, carb count coverage, update hemoglobin A1c DVT prophylaxis Eliquis Full code Text document was generated using [email or web address] voice recognition software. It may contain grammatical or spelling errors. Kindly contact undersigned for clarification of any documentation item in question. History of Present Illness Chief Complaint: Abdominal pain Primary Care Provider: Dhiraj Myers DO History is obtained from the patient and records. Medical history is significant for alcohol abuse, chronic pancreatitis, GERD/Renae's esophagus, ADD/mood disorder as per records, DM2 insulin requiring, hx PE as per records, recurrent DVT on Eliquis, history of chronic pain, hx narcotic abuse as per records/terminated medication agreement. Monthly admissions since October 2022 for abdominal pain in the setting of alcohol abuse. Last confinement 12/18-2022 for hyperglycemic crisis secondary to medical noncompliance, LGIB, chronic pancreatitis and alcoholic gastritis. Patient discharged on Creon, Lantus and Eliquis Rx. Patient went to alcohol rehab following discharge. Patient started drinking again last week. Personal stressors pushing him to drink. Some depression, denies suicidality. Achy epigastric pain going to his chest noted yesterday similar to pancreatitis attack. Nausea and bilious emesis episodes. No black/bloody stools. No chest pain, no SOB. No unusual headache symptoms. MEDICAL HISTORY: As above. SURGERIES: Appendectomy, cholecystectomy, vascular device placement, back surgery FAMILY HISTORY: There is a family history of mood disorder. Alcoholism, heart disease. 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 Allergies Allergy/AdvReac Type Severity Reaction Status Date / Time No Known Allergies Allergy Verified 12/04/22 21:48 Home Medications Medication Instructions Recorded Confirmed Type apixaban 5 mg tablet (Eliquis) 5 mg PO BID 08/17/22 12/18/22 History hydroxyzine pamoate 25 mg capsule 25 mg PO BID PRN Anxiety 10/20/22 12/18/22 History oxycodone 5 mg tablet 5 mg PO Q8H PRN pain #8 tabs 11/19/22 12/18/22 Rx [id number] 1 cap PO TID #90 caps 12/21/22 Rx 24,000-76,000-120,000 unit capsule,delayed rel (Creon) amitriptyline 50 mg tablet 50 mg PO HS 01/03/23 01/03/23 History glipizide 5 mg tablet, extended 5 mg PO DAILY 01/03/23 01/03/23 History release 24 hr insulin glargine 100 unit/mL (3 15 unit subcut HS 01/03/23 History mL) subcutaneous pen (Lantus Solostar U-100 Insulin) pantoprazole 40 mg tablet,delayed 40 mg PO DAILY 01/03/23 01/03/23 History release Past Med/Surg History Medical History Abdominal pain Abdominal pain Abdominal pain, acute, epigastric Acute hyperglycemia Alcohol abuse (Unknown) Alcohol abuse Alcohol abuse Alcohol withdrawal Alcoholic ketosis Renae's esophagus (Unknown) "per EGD 11/23/09 " On 05/31/11 09:06 Martinez Jose wrote "per EGD 11/23/09 " Chest pain COVID-19 Depression Depression DM type 2 (diabetes mellitus, type 2) Encounter for alcohol abuse counseling and surveillance Encounter for pre-operative examination Encounter for tobacco use cessation counseling H/O acute pancreatitis "recurrent" History of substance abuse Hyperglycemia Intentional drug overdose Lumbar degenerative disc disease Mood disorder Mood disorder Nausea & vomiting Neuropathy Pancreatic duct stones Pancreatitis Panic disorder Pulmonary embolism on chronic apixaban Retrosternal chest pain Suicidal ideation Suicidal ideation Suicide attempt Surgical History H/O esophagogastroduodenoscopy "EGD 11/23/2009- mild gastritis, suspicious for gastroparesis, Z-line irregular EUS 02/04/2010- mild chronic pancreatitis, pronounced cholesterolosis of gallbladder, no biliary dilation or stones, probable gastroparesis EGD 10/31/2014- gastritis" S/P lumbar fusion L4-S1 2014 Family History Father Alcohol abuse Social History Smoking Status: Former smoker Tobacco Type: Cigarettes Second Hand Exposure: No; Do You Dip or Chew Tobacco: Yes; Hx Alcohol Use: Yes Alcohol type: beer Hx Substance Use: No Preferred Language: Thai Communication Ability: Effective 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 Beliefs That Will Affect Care: None marital status: Current Living Situation: Parent Current Living Situation Comment: from home with mother How many Children do You have: 3 Feels Safe at Home: Yes Assistive Devices: None Review of Systems Review of Systems: As per HPI, all other systems reviewed and negative Physical Exam Physical Exam: GENERAL: Comfortable, alcoholic fetor, looks older than stated age, no respir atory distress SKIN: Normal color, warm HEENT: Alopecia, pink palpebral conjunctivae, no ptosis, dry buccal mucosa NECK : Supple, short neck, no tenderness CHEST : CTA, no tenderness HEART : Tachycardic, no obvious murmurs ABDOMEN: Some distention, epigastric tenderness EXTREMITIES : No LE swelling, no LE tenderness NEUROLOGIC : Coherent, no facial asymmetry, no other gross focality Results & Data Results & Data Vital Signs (Past 12 Hours) Vital Signs Temp Pulse Resp BP Pulse Ox O2 Del Method 01/03/23 04:20 99 H 01/03/23 04:00 20 99 Room Air 01/03/23 02:30 100 H 20 124/86 98 Room Air 01/03/23 02:12 100 H 20 120/83 98 Room Air 01/03/23 01:39 100 H 20 116/82 98 Room Air 01/03/23 00:30 100 H 01/03/23 01:30 105 H 14 96 01/03/23 01:00 105 H 18 108/78 95 Room Air 01/03/23 00:30 101 H 115/83 97 Room Air 01/03/23 01:12 18 97 Room Air 01/03/23 00:10 36.6 C 18 97 Room Air 01/03/23 00:10 36.6 C 108 H 18 123/88 97 Room Air Laboratory Results Laboratory Results WBC 7.12 K/ul (4.8-10.8) 01/03/23 00:15 RBC 4.26 M/uL (4.70-6.10) L 01/03/23 00:15 Hgb 14.1 g/dl (14.0-18.0) 01/03/23 00:15 Hct 38.5 % (42.0-52.0) L 01/03/23 00:15 MCV 90.4 fL (80.0-100.0) 01/03/23 00:15 MCH 33.1 pg (25.0-34.0) 01/03/23 00:15 MCHC 36.6 g/dL (32.0-36.0) H 01/03/23 00:15 RDW Std Deviation 37.6 fL (36.4-46.3) 01/03/23 00:15 RDW Coeff of Gucci 11.6 % (11.5-14.5) 01/03/23 00:15 Plt Count 247 K/uL (130-400) 01/03/23 00:15 MPV 9.6 fL (9.4-12.4) 01/03/23 00:15 Immature Gran % (Auto) 0.1 % 01/03/23 00:15 Neut % (Auto) 59.4 % 01/03/23 00:15 Lymph % (Auto) 27.9 % 01/03/23 00:15 [facility] % (Auto) 6.7 % 01/03/23 00:15 Eos % (Auto) 4.8 % 01/03/23 00:15 Baso % (Auto) 1.1 % 01/03/23 00:15 Neut # (Auto) 4.22 K/uL (1.40-6.50) 01/03/23 00:15 Lymph # (Auto) 1.99 K/uL (1.2-3.4) 01/03/23 00:15 [facility] # (Auto) 0.48 K/uL (0.11-0.59) 01/03/23 00:15 Eos # (Auto) 0.34 K/uL (0-0.50) 01/03/23 00:15 Baso # (Auto) 0.08 K/uL (0-0.2) 01/03/23 00:15 Immature Gran # (Auto) 0.01 K/uL (0.01-0.20) 01/03/23 00:15 Sodium 132 mmol/L (136-145) L 01/03/23 00:15 Potassium 3.4 mmol/L (3.5-5.1) L 01/03/23 00:15 Chloride 98 mmol/L (98-107) 01/03/23 00:15 Carbon Dioxide 22 mmol/L (21-32) 01/03/23 00:15 Anion Gap 12 (3-11) H 01/03/23 00:15 BUN 6 mg/dl (6-23) 01/03/23 00:15 Creatinine 0.74 mg/dl (0.6-1.4) 01/03/23 00:15 Est Cr Clr Drug Dosing 132.5 ml/min 01/03/23 00:15 Est GFR ( Amer) 125.5 ml/min 01/03/23 00:15 Est GFR (Non-Af Amer) 108.3 ml/min 01/03/23 00:15 BUN/Creatinine Ratio 8.1 (10-20) L 01/03/23 00:15 Glucose 251 mg/dl (70-99(Fasting)) H 01/03/23 00:15 POC Glucose 142 mg/dl (70-99) H 01/03/23 04:34 Calcium 9.2 mg/dl (8.6-10.3) 01/03/23 00:15 Magnesium 1.8 mg/dl (1.7-2.4) 01/03/23 04:46 Total Bilirubin 0.5 mg/dl (0.2-1.0) 01/03/23 00:15 AST 15 U/L (13-39) 01/03/23 00:15 ALT 13 U/L (7-52) 01/03/23 00:15 Alkaline Phosphatase 51 U/L (34-104) 01/03/23 00:15 Total Protein 7.1 gm/dl (6.0-8.3) 01/03/23 00:15 Albumin 3.8 gm/dl (3.4-5.0) 01/03/23 00:15 Globulin 3.3 gm/dl (2.5-4.0) 01/03/23 00:15 Albumin/Globulin Ratio 1.2 (0.9-2) 01/03/23 00:15 Lipase 27 U/L (11-82) 01/03/23 00:15 Urine Color Yellow 01/03/23 01:05 Urine Appearance Clear (Clear) 01/03/23 01:05 Urine pH 5.5 (4.5-7.5) 01/03/23 01:05 Ur Specific [place] 1.005 (1.000-1.030) 01/03/23 01:05 Urine Protein Negative (Negative) 01/03/23 01:05 Urine Glucose (UA) 3+ (Negative) H 01/03/23 01:05 Urine Ketones Negative (Negative) 01/03/23 01:05 Urine Blood Negative (Negative) 01/03/23 01:05 Urine Nitrite Negative (Negative) 01/03/23 01:05 Urine Bilirubin Negative (Negative) 01/03/23 01:05 Urine Urobilinogen Negative (Negative) 01/03/23 01:05 Ur Leukocyte Esterase Negative (Negative) 01/03/23 01:05 Ethyl Alcohol mg/dL 303.7 mg/dl (<10.0) H 01/03/23 01:26 SARS-CoV-2, RNA, NAAT NEGATIVE (NEGATIVE) 01/03/23 01:05 Impressions Abdomen/Pelvis CT 01/03/23 01:26 Exam(s): CT ABDOMEN + PELVIS With Contrast IV Amt: 89ml Optiray 320 EXAM: CT Abdomen and Pelvis With Intravenous Contrast CLINICAL HISTORY: Reason for exam: eval for pancreatitis. TECHNIQUE: Axial computed tomography images of the abdomen and pelvis with intravenous contrast. Automated exposure control was utilized for the study. A dose lowering technique was utilized adhering to the principles of ALARA. CONTRAST: Patient received 89ml Optiray 320 of IV contrast COMPARISON: 12/19/2022 FINDINGS: ABDOMEN: Liver: Unremarkable. Gallbladder and bile ducts: Cholecystectomy. Pancreas: Calcifications within the pancreas consistent with sequela of chronic pancreatitis. There is a stone within the duct at the neck causing upstream dilatation and atrophy. Spleen: Unremarkable. Adrenals: Unremarkable. Kidneys and ureters: Unremarkable. No obstructing stones. No hydronephrosis. Stomach and bowel: Unremarkable. PELVIS: Appendix: No findings to suggest acute appendicitis. Bladder: Unremarkable. Reproductive: Unremarkable as visualized. ABDOMEN and PELVIS: Intraperitoneal space: Unremarkable. No free air. No significant fluid collection. Bones/joints: No acute fracture. Soft tissues: Unremarkable. Vasculature: Portosystemic varices. Lymph nodes: Unremarkable. IMPRESSION: Calcifications within the pancreas consistent with sequela of chronic pancreatitis. There is a stone within the duct at the neck causing upstream dilatation and atrophy. Electronically signed by: Blake Corley MD 01/03/23 03:23 AM Diagnostic Findings EKG as per my interpretation : Rate 105, sinus tachycardia, normal axis, no ischemia Code Status & VTE Plan VTE Prophylaxis Plan VTE Prophylaxis will be ordered: Yes
--- NOTE | 2023-01-03 05:47 | Emergency Department Note ---
Impression & Plan Acute on chronic pancreatitis, Alcohol abuse, Hyperglycemia due to type 2 diabetes mellitus Admitted to the [facility] ED Provider Note NAME: RIKY MELTON AGE: 47 SEX: M ARRIVES VIA: Ambulance INFORMANT: Patient ED PROVIDER(S): Martina Oates DO CHIEF COMPLAINT: Epigastric abdominal pain PLAN: Disposition: Admit to the [facility] Condition: Fair MEDICAL DECISION MAKING: This is a 47-year-old male patient presents the emergency department with epigastric abdominal pain. The patient has a history of alcohol abuse and bouts of pancreatitis. Patient presents with moderate to severe epigastric abdominal pain. He was treated with IV analgesia and IV antiemetics. Laboratory studies reveal a blood alcohol level of 303. Lipase is normal but CT scan shows evidence of chronic pancreatitis. Patient has persistent and intractable epigastric pain. Laboratory studies also reveal moderate hyperglycemia. There is no significant leukocytosis or anemia. There is no evidence of acute kidney injury. Patient was treated with IV normal saline and an IV banana bag. Patient did not experience any significant withdrawal symptoms while here in the ER. I dis cussed the case with the [facility] and they will evaluate for further management. Triage Nursing notes reviewed and agree with them. External medical records reviewed including previous admissions for pancreatitis Vital Signs: reviewed and remarkable for tachycardia Differential diagnosis: Alcohol intoxication, alcohol withdrawal, pancreatitis, gastritis, hyperglycemia, DKA ER treatment provided: Cardiac monitoring IV normal saline bolus IV banana bag IV Dilaudid x2 IV Zofran Diagnostics interpreted by me: ECG: Sinus tachycardia at [address] segment elevation or signs of ischemia. There is no ectopy. Cardiac Monitoring: Sinus tachycardia at 104 Laboratory studies: See below Imaging studies: As per stat read CT scan of the abdomen/pelvis: See report HPI: 47/M arrives for evaluation of epigastric abdominal pain. Patient states that around 2:00 today he developed worsening upper/epigastric abdominal pain that radiates through to his back and spine. He began to vomit. His last alcoholic drink was at noon time today. He had also developed some yellow diarrhea. He does have a longstanding history of alcohol use and recurrent episodes of pancreatitis. PAST MEDICAL HISTORY:See Below PAST SURGICAL HISTORY:See Below FAMILY HISTORY:See Below SOCIAL HISTORY:See Below HOME MEDICATIONS:See list ALLERGIES:None VITALS:See Below PHYSICAL EXAMINATION: HEENT: Head - normocephalic and atraumatic Pupils are equal, round, and reactive to light. Extraocular eye muscles are intact, and sclera are anicteric. Nose - moist nasal mucosa without discharge. Mouth - moist buccal mucosa. Oropharynx is nonerythematous and there is no tonsillar exudate or edema noted. Neck: Supple; no JVD, nuchal rigidity, cervical lymphadenopathy, or auscultated bruits. Heart: Tachycardic rate and regular rhythm. There is a normal S1 and S2 with no murmurs, clicks, or gallops appreciated. Lungs: Clear to auscultation bilaterally with no wheezes, rales, or rhonchi. Abdomen: Soft, exquisite tenderness to palpation in the epigastrium and right and left upper quadrants with good bowel sounds. The upper abdomen is moderately distended. There are no palpable pulsatile masses or hepatosplenomegaly. There is no guarding, rigidity, or rebound noted. Extremities: No evidence of cyanosis, clubbing, or edema. There are easily palpable peripheral pulses. Skin: warm and dry with good turgor and no rashes. ED COURSE: Times/Reassessments: 0035: Patient was evaluated in room B9. A complete history and physical was performed. An order was placed for continuous cardiac monitoring. The patient was in a sinus tachycardia at 104. A twelve-lead EKG was obtained as described above. Patient was given a dose of IV Zofran and IV Dilaudid for his significant epigastric pain. He was bolused with IV normal saline solution. He was then started on IV banana bag. He went for CT scan of the abdomen/pelvis to further evaluate the pancreas. Upon return from radiology, he continued to complain of moderate discomfort in the epigastrium and was given a second dose of IV Dilaudid. Martina Oates DO Past Med/Surg History Medical History Abdominal pain Abdominal pain Abdominal pain, acute, epigastric Acute hyperglycemia Alcohol abuse (Unknown) Alcohol abuse Alcohol abuse Alcohol withdrawal Alcoholic ketosis Renae's esophagus (Unknown) "per EGD 11/23/09 " On 05/31/11 09:06 Martinez Jose wrote "per EGD 11/23/09 " Chest pain COVID-19 Depression Depression DM type 2 (diabetes mellitus, type 2) Encounter for alcohol abuse counseling and surveillance Encounter for pre-operative examination Encounter for tobacco use cessation counseling H/O acute pancreatitis "recurrent" History of substance abuse Hyperglycemia Intentional drug overdose Lumbar degenerative disc disease Mood disorder Mood disorder Nausea & vomiting Neuropathy Pancreatic duct stones Pancreatitis Panic disorder Pulmonary embolism on chronic apixaban Retrosternal chest pain Suicidal ideation Suicidal ideation Suicide attempt Surgical History H/O esophagogastroduodenoscopy "EGD 11/23/2009- mild gastritis, suspicious for gastroparesis, Z-line irregular EUS 02/04/2010- mild chronic pancreatitis, pronounced cholesterolosis of gallbladder, no biliary dilation or stones, probable gastroparesis EGD 10/31/2014- gastritis" S/P lumbar fusion L4-S1 2014 Family History Father Alcohol abuse Social History Smoking Status: Never smoker Tobacco Type: Cigarettes Second Hand Exposure: No; Do You Dip or Chew Tobacco: Yes; Hx Alcohol Use: Yes Alcohol type: beer Hx Substance Use: No Preferred Language: Tuvaluan Communication Ability: Effective Meat Selector Required: No Beliefs That Will Affect Care: None marital status: Current Living Situation: Family Current Living Situation Comment: from home with mother How many Children do You have: 3 Feels Safe at Home: Yes Assistive Devices: None Allergies Allergies Allergy/AdvReac Type Severity Reaction Status Date / Time No Known Allergies Allergy Verified 12/04/22 21:48 Home Meds Home Medications Medication Instructions Recorded Confirmed paroxetine HCl 20 mg tablet 20 mg PO QAM 12/20/19 12/18/22 acetaminophen 325 mg capsule 650 mg PO BID PRN Fever Or Pain 08/17/22 12/18/22 (Tylenol) apixaban 5 mg tablet (Eliquis) 5 mg PO BID 08/17/22 12/18/22 hydroxyzine pamoate 25 mg capsule 25 - 50 mg PO Q6 PRN Anxiety 10/20/22 12/18/22 diazepam 10 mg tablet 10 mg PO DIRECTED PRN CIWA score 12/04/22 12/18/22 calcium carbonate 200 mg calcium 400 mg PO Q4 PRN as directed 12/18/22 12/18/22 (500 mg) chewable tablet (Tums) gabapentin 300 mg capsule 300 mg PO DAILY 12/18/22 12/18/22 insulin lispro 100 unit/mL 0 sliding scale dose subcut UD 12/18/22 12/18/22 subcutaneous solution melatonin 3 mg tablet 3 - 6 mg PO HS 12/18/22 12/18/22 ondansetron HCl 4 mg tablet 4 mg PO Q6 PRN Nausea 12/18/22 12/18/22 Previous Rx's Medication Instructions Recorded oxycodone 5 mg tablet 5 mg PO Q8H PRN pain #8 tabs 11/19/22 hzciul-[id number] 1 cap PO TID #90 caps 12/21/22 24,000-76,000-120,000 unit capsule,delayed rel (Creon) dicyclomine 10 mg capsule 10 mg PO TID PRN abdominal pain 12/23/22 #90 caps folic acid 1 mg tablet 1 mg PO QAM #30 tabs 12/23/22 insulin glargine 100 unit/mL (3 15 unit (0.15 mL) subcut DAILY #15 12/23/22 mL) subcutaneous pen (Lantus mL Solostar U-100 Insulin) multivitamin with folic acid 400 1 tab PO QAM #30 tabs 12/23/22 mcg tablet (Daily-Chriss (with folic acid)) pantoprazole 40 mg tablet,delayed 40 mg PO BID #60 tabs 12/23/22 release pen needle, diabetic 32 gauge x #100 ea 12/23/22 532" (Pen Needle) thiamine HCl (vitamin B1) 100 mg 100 mg PO QAM #14 tabs 12/23/22 tablet Results & Data (ED) Vital Signs Vital Signs - 24 hr 01/03/23 00:10 01/03/23 00:10 01/03/23 01:12 Temperature 36.6 C 36.6 C Temperature Source Oral Oral Pulse Rate 108 H Pulse Rate from SpO2 Sensor Pulse Rhythm Regular Pulse Strength Normal Respiratory Rate 18 18 18 Respiratory Effort / Characteristics Non-Labored Spontaneous Non-Labored Respiratory Depth Normal Normal Respiratory Pattern Regular Blood Pressure 123/88 Blood Pressure Mean 99 Blood Pressure Position Lying Pulse Oximetry 97 97 97 Oxygen Delivery Method Room Air Room Air Room Air Sepsis Recent Fever Within 48 Hours No Sepsis New/Unexplained Change in Mental Status No Sepsis Action Taken by Nursing No Action Required 01/03/23 00:30 01/03/23 01:00 01/03/23 01:30 Temperature Temperature Source Pulse Rate 101 H 105 H 105 H Pulse Rate from SpO2 Sensor 104 H Pulse Rhythm Pulse Strength Respiratory Rate 18 14 Respiratory Effort / Characteristics Respiratory Depth Respiratory Pattern Blood Pressure 115/83 108/78 Blood Pressure Mean 96 84 Blood Pressure Position Pulse Oximetry 97 95 96 Oxygen Delivery Method Room Air Room Air Sepsis Recent Fever Within 48 Hours Sepsis New/Unexplained Change in Mental Status Sepsis Action Taken by Nursing 01/03/23 00:30 01/03/23 01:39 01/03/23 02:12 Temperature Temperature Source Pulse Rate 100 H 100 H 100 H Pulse Rate from SpO2 Sensor Pulse Rhythm Pulse Strength Respiratory Rate 20 20 Respiratory Effort / Characteristics Respiratory Depth Respiratory Pattern Blood Pressure 116/82 120/83 Blood Pressure Mean 90 91 Blood Pressure Position Pulse Oximetry 98 98 Oxygen Delivery Method Room Air Room Air Sepsis Recent Fever Within 48 Hours Sepsis New/Unexplained Change in Mental Status Sepsis Action Taken by Nursing 01/03/23 02:30 01/03/23 04:00 01/03/23 04:20 Temperature Temperature Source Pulse Rate 100 H 99 H Pulse Rate from SpO2 Sensor Pulse Rhythm Pulse Strength Respiratory Rate 20 20 Respiratory Effort / Characteristics Non-Labored Respiratory Depth Normal Respiratory Pattern Regular Blood Pressure 124/86 Blood Pressure Mean 91 Blood Pressure Position Pulse Oximetry 98 99 Oxygen Delivery Method Room Air Room Air Sepsis Recent Fever Within 48 Hours Sepsis New/Unexplained Change in Mental Status Sepsis Action Taken by Nursing Laboratory Data 01/03/23 00:15 01/03/23 00:15 Lab Results 01/03/23 01/03/23 01/03/23 Range/Units 00:15 00:15 01:05 WBC 7.12 (4.8-10.8) K/ul RBC 4.26 L (4.70-6.10) M/uL Hgb 14.1 (14.0-18.0) g/dl Hct 38.5 L (42.0-52.0) % MCV 90.4 (80.0-100.0) fL MCH 33.1 (25.0-34.0) pg MCHC 36.6 H (32.0-36.0) g/dL RDW Std Deviation 37.6 (36.4-46.3) fL RDW Coeff of Gucci 11.6 (11.5-14.5) % Plt Count 247 (130-400) K/uL MPV 9.6 (9.4-12.4) fL Immature Gran % (Auto) 0.1 % Neut % (Auto) 59.4 % Lymph % (Auto) 27.9 % Licking % (Auto) 6.7 % Eos % (Auto) 4.8 % Baso % (Auto) 1.1 % Neut # (Auto) 4.22 (1.40-6.50) K/uL Lymph # (Auto) 1.99 (1.2-3.4) K/uL Licking # (Auto) 0.48 (0.11-0.59) K/uL Eos # (Auto) 0.34 (0-0.50) K/uL Baso # (Auto) 0.08 (0-0.2) K/uL Immature Gran # (Auto) 0.01 (0.01-0.20) K/uL Sodium 132 L (136-145) mmol/L Potassium 3.4 L (3.5-5.1) mmol/L Chloride 98 (98-107) mmol/L Carbon Dioxide 22 (21-32) mmol/L Anion Gap 12 H (3-11) BUN 6 (6-23) mg/dl Creatinine 0.74 (0.6-1.4) mg/dl Est Cr Clr Drug Dosing 132.5 ml/min Est GFR ( Amer) 125.5 ml/min Est GFR (Non-Af Amer) 108.3 ml/min BUN/Creatinine Ratio 8.1 L (10-20) Glucose 251 H (70-99(Fasting)) mg/dl POC Glucose (70-99) mg/dl Calcium 9.2 (8.6-10.3) mg/dl Magnesium (1.7-2.4) mg/dl Total Bilirubin 0.5 (0.2-1.0) mg/dl AST 15 (13-39) U/L ALT 13 (7-52) U/L Alkaline Phosphatase 51 (34-104) U/L Total Protein 7.1 (6.0-8.3) gm/dl Albumin 3.8 (3.4-5.0) gm/dl Globulin 3.3 (2.5-4.0) gm/dl Albumin/Globulin Ratio 1.2 (0.9-2) Lipase 27 (11-82) U/L Urine Color Yellow Urine Appearance Clear (Clear) Urine pH 5.5 (4.5-7.5) Ur Specific Adams 1.005 (1.000-1.030) Urine Protein Negative (Negative) Urine Glucose (UA) 3+ H (Negative) Urine Ketones Negative (Negative) Urine Blood Negative (Negative) Urine Nitrite Negative (Negative) Urine Bilirubin Negative (Negative) Urine Urobilinogen Negative (Negative) Ur Leukocyte Esterase Negative (Negative) Ethyl Alcohol mg/dL (<10.0) mg/dl SARS-CoV-2, RNA, NAAT (NEGATIVE) 01/03/23 01/03/23 01/03/23 Range/Units 01:05 01:26 04:34 WBC (4.8-10.8) K/ul RBC (4.70-6.10) M/uL Hgb (14.0-18.0) g/dl Hct (42.0-52.0) % MCV (80.0-100.0) fL MCH (25.0-34.0) pg MCHC (32.0-36.0) g/dL RDW Std Deviation (36.4-46.3) fL RDW Coeff of Gucci (11.5-14.5) % Plt Count (130-400) K/uL MPV (9.4-12.4) fL Immature Gran % (Auto) % Neut % (Auto) % Lymph % (Auto) % Licking % (Auto) % Eos % (Auto) % Baso % (Auto) % Neut # (Auto) (1.40-6.50) K/uL Lymph # (Auto) (1.2-3.4) K/uL Licking # (Auto) (0.11-0.59) K/uL Eos # (Auto) (0-0.50) K/uL Baso # (Auto) (0-0.2) K/uL Immature Gran # (Auto) (0.01-0.20) K/uL Sodium (136-145) mmol/L Potassium (3.5-5.1) mmol/L Chloride (98-107) mmol/L Carbon Dioxide (21-32) mmol/L Anion Gap (3-11) BUN (6-23) mg/dl Creatinine (0.6-1.4) mg/dl Est Cr Clr Drug Dosing ml/min Est GFR ( Amer) ml/min Est GFR (Non-Af Amer) ml/min BUN/Creatinine Ratio (10-20) Glucose (70-99(Fasting)) mg/dl POC Glucose 142 H (70-99) mg/dl Calcium (8.6-10.3) mg/dl Magnesium (1.7-2.4) mg/dl Total Bilirubin (0.2-1.0) mg/dl AST (13-39) U/L ALT (7-52) U/L Alkaline Phosphatase (34-104) U/L Total Protein (6.0-8.3) gm/dl Albumin (3.4-5.0) gm/dl Globulin (2.5-4.0) gm/dl Albumin/Globulin Ratio (0.9-2) Lipase (11-82) U/L Urine Color Urine Appearance (Clear) Urine pH (4.5-7.5) Ur Specific Adams (1.000-1.030) Urine Protein (Negative) Urine Glucose (UA) (Negative) Urine Ketones (Negative) Urine Blood (Negative) Urine Nitrite (Negative) Urine Bilirubin (Negative) Urine Urobilinogen (Negative) Ur Leukocyte Esterase (Negative) Ethyl Alcohol mg/dL 303.7 H (<10.0) mg/dl SARS-CoV-2, RNA, NAAT NEGATIVE (NEGATIVE) 01/03/23 Range/Units 04:46 WBC (4.8-10.8) K/ul RBC (4.70-6.10) M/uL Hgb (14.0-18.0) g/dl Hct (42.0-52.0) % MCV (80.0-100.0) fL MCH (25.0-34.0) pg MCHC (32.0-36.0) g/dL RDW Std Deviation (36.4-46.3) fL RDW Coeff of Gucci (11.5-14.5) % Plt Count (130-400) K/uL MPV (9.4-12.4) fL Immature Gran % (Auto) % Neut % (Auto) % Lymph % (Auto) % Licking % (Auto) % Eos % (Auto) % Baso % (Auto) % Neut # (Auto) (1.40-6.50) K/uL Lymph # (Auto) (1.2-3.4) K/uL Licking # (Auto) (0.11-0.59) K/uL Eos # (Auto) (0-0.50) K/uL Baso # (Auto) (0-0.2) K/uL Immature Gran # (Auto) (0.01-0.20) K/uL Sodium (136-145) mmol/L Potassium (3.5-5.1) mmol/L Chloride (98-107) mmol/L Carbon Dioxide (21-32) mmol/L Anion Gap (3-11) BUN (6-23) mg/dl Creatinine (0.6-1.4) mg/dl Est Cr Clr Drug Dosing ml/min Est GFR ( Amer) ml/min Est GFR (Non-Af Amer) ml/min BUN/Creatinine Ratio (10-20) Glucose (70-99(Fasting)) mg/dl POC Glucose (70-99) mg/dl Calcium (8.6-10.3) mg/dl Magnesium 1.8 (1.7-2.4) mg/dl Total Bilirubin (0.2-1.0) mg/dl AST (13-39) U/L ALT (7-52) U/L Alkaline Phosphatase (34-104) U/L Total Protein (6.0-8.3) gm/dl Albumin (3.4-5.0) gm/dl Globulin (2.5-4.0) gm/dl Albumin/Globulin Ratio (0.9-2) Lipase (11-82) U/L Urine Color Urine Appearance (Clear) Urine pH (4.5-7.5) Ur Specific Adams (1.000-1.030) Urine Protein (Negative) Urine Glucose (UA) (Negative) Urine Ketones (Negative) Urine Blood (Negative) Urine Nitrite (Negative) Urine Bilirubin (Negative) Urine Urobilinogen (Negative) Ur Leukocyte Esterase (Negative) Ethyl Alcohol mg/dL (<10.0) mg/dl SARS-CoV-2, RNA, NAAT (NEGATIVE) Administered Medications Lactated Ringer's (Lr) 1,000 mls @ 200 mls/hr IV .Q5H STA Stop: 01/03/23 09:49 Last Admin: 01/03/23 05:48 Dose: 200 mls/hr Documented By: SOLOMON Discontinued Medications Gabapentin (Gabapentin 600 Mg Tab) 1,200 mg PO NOW STA Stop: 01/03/23 05:27 Last Admin: 01/03/23 05:48 Dose: 1,200 mg Documented By: SOLOMON Hydromorphone HCl (Hydromorphone Inj 0.5 Mg/0.5 Ml Syr) 0.5 mg IV NOW STA Stop: 01/03/23 00:54 Last Admin: 01/03/23 00:59 Dose: 0.5 mg Documented By: SOLOMON Hydromorphone HCl (Hydromorphone Inj 1 Mg/Ml Syringe) 1 mg IV NOW STA Stop: 01/03/23 04:04 Last Admin: 01/03/23 04:07 Dose: 1 mg Documented By: SOLOMON Sodium Chloride (Nss) 500 mls @ 999 mls/hr IV .Q31M ONE Stop: 01/03/23 01:23 Last Infusion: 01/03/23 01:31 Dose: 0 mls/hr Documented By: Admin: 01/03/23 01:00 Dose: 999 mls/hr Documented By: SOLOMON Thiamine HCl 100 mg/ Folic (Acid 1 mg/ Sodium Chloride) 1,001.2 mls @ 500 mls/hr IV .Q2H1M STA; Protocol Stop: 01/03/23 03:26 Last Infusion: 01/03/23 04:36 Dose: 0 mls/hr Documented By: Admin: 01/03/23 01:39 Dose: 500 mls/hr Documented By: SOLOMON Ioversol (Optiray 320 100ml) 89 ml IV ONCE ONE Stop: 01/03/23 02:09 Last Admin: 01/03/23 02:09 Dose: 89 ml Documented By: IRMA Multivitamins/Minerals (Cerovite Adv Formula Tab) 1 tab PO ONE STA Stop: 01/03/23 01:27 Last Admin: 01/03/23 01:39 Dose: 1 tab Documented By: SOLOMON Ondansetron HCl (Ondansetron Inj 2 Mg/Ml 2 Ml Vial) 4 mg IV NOW STA Stop: 01/03/23 00:54 Last Admin: 01/03/23 00:59 Dose: 4 mg Documented By: SOLOMON Potassium Chloride (Potassium Chloride Crtab 20 Meq Tabcr) 20 meq PO NOW STA Stop: 01/03/23 04:47 Last Admin: 01/03/23 05:39 Dose: Not Given Documented By: ELIF Potassium Chloride (Potassium Chloride Pwd 20 Meq Pack) 20 meq PO NOW STA Stop: 01/03/23 05:25 Last Admin: 01/03/23 05:48 Dose: 20 meq Documented By: SOLOMON Imaging Data Radiologist's Impression: Abdomen/Pelvis CT 01/03/23 01:26 Exam(s): CT ABDOMEN + PELVIS With Contrast IV Amt: 89ml Optiray 320 EXAM: CT Abdomen and Pelvis With Intravenous Contrast CLINICAL HISTORY: Reason for exam: eval for pancreatitis. TECHNIQUE: Axial computed tomography images of the abdomen and pelvis with intravenous contrast. Automated exposure control was utilized for the study. A dose lowering technique was utilized adhering to the principles of ALARA. CONTRAST: Patient received 89ml Optiray 320 of IV contrast COMPARISON: 12/19/2022 FINDINGS: ABDOMEN: Liver: Unremarkable. Gallbladder and bile ducts: Cholecystectomy. Pancreas: Calcifications within the pancreas consistent with sequela of chronic pancreatitis. There is a stone within the duct at the neck causing upstream dilatation and atrophy. Spleen: Unremarkable. Adrenals: Unremarkable. Kidneys and ureters: Unremarkable. No obstructing stones. No hydronephrosis. Stomach and bowel: Unremarkable. PELVIS: Appendix: No findings to suggest acute appendicitis. Bladder: Unremarkable. Reproductive: Unremarkable as visualized. ABDOMEN and PELVIS: Intraperitoneal space: Unremarkable. No free air. No significant fluid collection. Bones/joints: No acute fracture. Soft tissues: Unremarkable. Vasculature: Portosystemic varices. Lymph nodes: Unremarkable. IMPRESSION: Calcifications within the pancreas consistent with sequela of chronic pancreatitis. There is a stone within the duct at the neck causing upstream dilatation and atrophy. Electronically signed by: Blake Corley MD 01/03/23 03:23 AM Discharge Plan Visit Data Chief Complaint: Abdominal Pain Stated Complaint: ABDOMINAL PAIN/PANCREATITIS ED Provider: Martina Oates Discharge Problem: Acute on chronic pancreatitis, Alcohol abuse, Hyperglycemia due to type 2 diabetes mellitus Forms Stand Alone Forms: My [facility] Prescriptions Prescriptions: No Action paroxetine HCl 20 mg tablet 20 mg PO QAM acetaminophen [Tylenol] 325 mg capsule 650 mg PO BID PRN (Reason: Fever Or Pain) Eliquis 5 mg tablet 5 mg PO BID hydroxyzine pamoate 25 mg capsule 25 - 50 mg PO Q6 PRN (Reason: Anxiety) oxycodone 5 mg Tablet 5 mg PO Q8H PRN (Reason: pain) Qty: 8 0RF diazepam 10 mg tablet 10 mg PO DIRECTED PRN (Reason: CIWA score) gabapentin 300 mg capsule 300 mg PO DAILY Rx Instructions: taper insulin lispro 100 unit/mL solution 0 sliding scale dose subcut UD ondansetron HCl 4 mg tablet 4 mg PO Q6 PRN (Reason: Nausea) melatonin 3 mg tablet 3 - 6 mg PO HS calcium carbonate [Tums] 200 mg calcium (500 mg) tablet,chewable 400 mg PO Q4 PRN (Reason: as directed) Creon 24,000-76,000 -120,000 unit capsule,delayed release(DR/EC) 1 cap PO TID Qty: 90 0RF Rx Instructions: administer with meals and/or snacks dicyclomine 10 mg Capsule 10 mg PO TID PRN (Reason: abdominal pain) Qty: 90 0RF folic acid 1 mg Tablet 1 mg PO QAM Qty: 30 0RF multivitamin with folic acid [Daily-Chriss (with folic acid)] 400 mcg Tablet 1 tab PO QAM Qty: 30 0RF thiamine HCl (vitamin B1) 100 mg Tablet 100 mg PO QAM Qty: 14 0RF insulin glargine [Lantus Solostar U-100 Insulin] 100 unit/mL (3 mL) insulin pen 15 unit subcut DAILY Qty: 15 0RF (DME) pen needle, diabetic [Pen Needle] 32 gauge x 5/32" needle See Rx Instructions .ROUTE Qty: 100 0RF Rx Instructions: once daily pantoprazole 40 mg Tablet,Delayed Release (Dr/Ec) 40 mg PO BID Qty: 60 0RF Referrals Referrals: Dhiraj Myers, [Primary Care Provider] -
[2023-01-03] MEDS: oxyCODONE HCL IR 5 MG TAB (IMMEDIATE RELEASE) PO PRN ×3 (06:29→21:30)
[2023-01-03] MEDS ORDERED: PROMETHAZINE 12.5 MG/50.5 ML NSS IV ONE (07:00)
[2023-01-03] MEDS: PROMETHAZINE HCL 12.5 MG in SODIUM CHLORIDE 0.9% 50 ML IV PRN ×2 (07:13→12:37)
[2023-01-03] MEDS ORDERED: GLUCOSE 10 TAB/TUBE PO PRN (07:53)
[2023-01-03] MEDS ORDERED: DEXTROSE 50% 50 ML SYRINGE IV PRN (07:53)
[2023-01-03] MEDS ORDERED: CARBOHYDRATES FOR HYPOGLYCEMIA PO PRN (07:53)
[2023-01-03] MEDS ORDERED: GLUCOSE 40% GEL 15 GM TUBE PO PRN (07:53)
[2023-01-03] MEDS ORDERED: GLUCAGON FOR INJ 1 MG VIAL SQ PRN (07:53)
[2023-01-03] MEDS: INSULIN ASPART PER UNIT CHARGE SC SCH ×4 (09:01→21:19)
[2023-01-03] MEDS: APIXABAN 5 MG TABLET PO SCH ×2 (09:05→21:32)
[2023-01-03] MEDS: PANTOprazole 40 MG TAB PO SCH (09:05)
[2023-01-03] MEDS: FOLIC ACID 1 MG TAB PO SCH (09:05)
--- NOTE | 2023-01-03 09:12 | Electrocardiogram Report ---
Test Reason : Blood Pressure : / mmHG Vent. Rate : 107 BPM Atrial Rate : 107 BPM P-R Int : 140 ms QRS Dur : 072 ms QT Int : 348 ms P-R-T Axes : 068 067 074 degrees QTc Int : 464 ms Sinus tachycardia Otherwise normal ECG When compared with ECG of 21-DEC-2022 06:24, No significant change was found Confirmed by Mudno Ordonez ([id number]) on 01/03/2023 9:12:19 AM Referred By: REFERRED SELF Confirmed By:Mundo Ordonez
[2023-01-03] MEDS: GABAPENTIN 600 MG TAB PO SCH ×2 (10:49→17:39)
[2023-01-03] MEDS: HYDROmorphone INJ 0.5 MG/0.5 ML SYR IV PRN ×3 (11:39→23:53)
--- NOTE | 2023-01-03 13:13 | Hospitalist Progress Note ---
Date of Service January 03, 2023 Assessment & Plan (1) Alcohol abuse: Plan Chronic pancreatitis related abdominal pain- epigastric tenderness on exam, wants to advance his diet today. Continue use of Creon with that. Patient advised in detail regarding alcohol cessation, patient verbalizes understanding. It appears that he is not interested in going to rehab or at least CM helping setting it up. Pain management. Noncompliance/history of leaving AMA: Patient is known to be noncompliant with his care and has history of leaving AMA. DM2 insulin requiring , suboptimal control Secondary to medical noncompliance, A1c of 10.1 on 12/18/2022. Last admission agreed to use only Lantus at home, continue with sliding scale while in the hospital.. History of PE/DVT on Eliquis:Continue with Eliquis. Alcoholic abuse: Continues to still drink, RHETT S protocol while in hospital. Counseled in detail, is not interested in alcohol cessation. Other chronic medical conditions:Resume home meds as able history GERD/Renae's esophagus history of chronic pain, hx narcotic abuse as per records/terminated medication agreement. ADD/mood disorder as per records DVT prophylaxis: Patient on Eliquis Full code Admission and Anticipated Discharge Date Admission Date: January 03, 2023 Subjective Patient seen and examined at bedside as a follow-up of abdominal pain secondary to chronic alcoholic pancreatitis. Patient was lying in bed, on room air, NAD, reports ongoing abdominal pain, mild epigastric tenderness, will consider advancing diet today, denies headache or fever or flulike illness recently. Physical Exam Physical Exam: GENERAL: Alert and oriented x3. NAD, on RA. HEENT: No pallor, no icterus. Pupils equal, round and reactive to light. Oral mucosa moist. NECK: No JVD, no neck masses. HEART: S1 and S2 heard. Regular rate and rhythm. No murmur, no gallop. RESPIRATORY SYSTEM: Normal AP diameter. No accessory muscle use. No wheezing, no crackles. ABDOMEN: Soft, bowel sounds present, epigastric tender +, no distention. CENTRAL NERVOUS SYSTEM: No facial droop. Speech is clear. Obeys simple commands. Moves extremities. EXTREMITIES: No edema, no erythema seen. Results & Data Results & Data Vital Signs (Past 12 Hours) Vital Signs Temp Pulse Pulse Resp BP BP Pulse Ox 01/03/23 11:20 36.7 C 71 20 104/70 99 01/03/23 07:59 01/03/23 07:54 36.3 C L 72 16 119/81 98 01/03/23 07:31 82 18 95 01/03/23 06:53 92 H 18 111/75 100 01/03/23 05:30 100 H 18 116/91 98 01/03/23 05:00 97 H 18 111/71 97 01/03/23 04:30 100 H 18 108/71 97 01/03/23 04:00 100 H 18 126/70 97 01/03/23 03:30 102 H 16 123/81 97 01/03/23 03:01 105 H 18 108/76 95 01/03/23 04:20 99 H 01/03/23 04:00 20 99 01/03/23 02:30 100 H 20 124/86 98 01/03/23 02:12 100 H 20 120/83 98 01/03/23 01:39 100 H 20 116/82 98 01/03/23 01:30 105 H 14 96 01/03/23 01:12 18 97 O2 Del Method 01/03/23 11:20 Room Air 01/03/23 07:59 Room Air 01/03/23 07:54 Room Air 01/03/23 07:31 Room Air 01/03/23 06:53 Room Air 01/03/23 05:30 Room Air 01/03/23 05:00 Room Air 01/03/23 04:30 Room Air 01/03/23 04:00 Room Air 01/03/23 03:30 Room Air 01/03/23 03:01 Room Air 01/03/23 04:20 01/03/23 04:00 Room Air 01/03/23 02:30 Room Air 01/03/23 02:12 Room Air 01/03/23 01:39 Room Air 01/03/23 01:30 01/03/23 01:12 Room Air
[2023-01-03] MEDS ORDERED: LANTUS PER UNIT CHARGE SQ SCH (21:00)
[2023-01-03] MEDS: AMITRIPTYLINE HCL 50 MG TAB PO SCH (21:31)
[2023-01-04] MEDS: PROMETHAZINE HCL 12.5 MG in SODIUM CHLORIDE 0.9% 50 ML IV PRN ×3 (00:17→18:42)
[2023-01-04] MEDS: GABAPENTIN 600 MG TAB PO SCH ×3 (02:25→16:57)
[2023-01-04] MEDS: oxyCODONE HCL IR 5 MG TAB (IMMEDIATE RELEASE) PO PRN ×2 (06:12→16:57)
[2023-01-04] MEDS: HYDROmorphone INJ 0.5 MG/0.5 ML SYR IV PRN ×2 (06:13→15:00)
[2023-01-04 07:14] LABS: Basophils # (auto) 0.04 K/uL (0-0.2); Basophils % (auto) 0.7 %; Eosinophils # (auto) 0.49 K/uL (0-0.50); Eosinophils % (auto) 9.1 %; Hematocrit (blood only) 40.9 % (42.0-52.0); Hemoglobin 14.2 g/dl (14.0-18.0); Immature Granulocytes # (auto) 0.01 K/uL (0.01-0.20); Immature Granulocytes % (auto) 0.2 %; Lymphocytes % (auto) 26.1 %; Mean Corpuscular Hemoglobin 32.8 pg (25.0-34.0); Mean Corpuscular Hgb Conc 34.7 g/dL (32.0-36.0); Mean Corpuscular Volume 94.5 fL (80.0-100.0); Mean Platelet Volume 9.6 fL (9.4-12.4); Monocytes # (auto) 0.41 K/uL (0.11-0.59); Monocytes % (auto) 7.6 %; Neutrophils # (auto) 3.02 K/uL (1.40-6.50); Neutrophils % (auto) 56.3 %; Platelet Count 199 K/uL (130-400); RDW Coefficient of Variation 11.5 % (11.5-14.5); RDW Standard Deviation 39.6 fL (36.4-46.3); Red Blood Count 4.33 M/uL (4.70-6.10); White Blood Count 5.37 K/ul (4.8-10.8)
[2023-01-04 07:48] LABS: Calcium 9.4 mg/dl (8.6-10.3); Magnesium 1.8 mg/dl (1.7-2.4); Potassium 4.2 mmol/L (3.5-5.1)
[2023-01-04 07:54] LABS: BUN Creatinine Ratio 6.8 (10-20); Creatinine Clr Calc Pharmacy 132.5 ml/min; Est GFR (African American) 125.5 ml/min; Est GFR (Non-African American) 108.3 ml/min; Phosphorus 3.5 mg/dl (2.5-4.9)
[2023-01-04] MEDS: INSULIN ASPART PER UNIT CHARGE SC SCH ×4 (08:25→20:34)
[2023-01-04] MEDS: LANTUS PER UNIT CHARGE SQ SCH (08:25)
[2023-01-04] MEDS: FOLIC ACID 1 MG TAB PO SCH (08:26)
[2023-01-04] MEDS: APIXABAN 5 MG TABLET PO SCH ×2 (08:26→20:34)
[2023-01-04] MEDS: MULTIVITAMIN TAB PO SCH (08:26)
[2023-01-04] MEDS: PANTOprazole 40 MG TAB PO SCH (08:26)
[2023-01-04] MEDS: THIAMINE HCL 100 MG TAB PO SCH (08:26)
--- NOTE | 2023-01-04 15:57 | Hospitalist Progress Note ---
Date of Service January 04, 2023 Assessment & Plan (1) Alcohol abuse: Plan Chronic pancreatitis related abdominal pain- epigastric tenderness resolved on exam, wants to advance his diet today. Continue use of Creon with that. Patient advised in detail regarding alcohol cessation and tobacco cessation, patient verbalizes understanding. He clearly is not interested in doing any of them. Pain management. Noncompliance/history of leaving AMA: Patient is known to be noncompliant with his care and has history of leaving AMA. DM2 insulin requiring , suboptimal control Secondary to medical noncompliance, A1c of 10.1 on 12/18/2022. Last admission agreed to use only Lantus at home, continue with sliding scale while in the hospital.. History of PE/DVT on Eliquis:Continue with Eliquis. Alcoholic abuse: Continues to still drink, RHETT S protocol while in hospital. Counseled in detail, is not interested in alcohol cessation. Other chronic medical conditions:Resume home meds as able history GERD/Renae's esophagus history of chronic pain, hx narcotic abuse as per records/terminated medication agreement. ADD/mood disorder as per records DVT prophylaxis: Patient on Eliquis Full code Dispo: pt reports he still has pain, will think about going janna. DC janna after exam if no epi tenderness found and no other issues overnight. Admission and Anticipated Discharge Date Admission Date: January 03, 2023 Subjective Patient seen and examined at bedside as a follow-up of abdominal pain secondary to chronic alcoholic pancreatitis. Patient was lying in bed, on room air, NAD, reports ongoing abdominal pain, no epigastric tenderness on exam though, appears tolerating advancement of diet, r eports having nausea in AM, denies headache or fever or flulike illness recently. Physical Exam Physical Exam: GENERAL: Alert and oriented x3. NAD, on RA. HEENT: No pallor, no icterus. Pupils equal, round and reactive to light. Oral mucosa moist. NECK: No JVD, no neck masses. HEART: S1 and S2 heard. Regular rate and rhythm. No murmur, no gallop. RESPIRATORY SYSTEM: Normal AP diameter. No accessory muscle use. No wheezing, no crackles. ABDOMEN: Soft, bowel sounds present, epigastric tender none present when examined with his attention drawn away, no distention. CENTRAL NERVOUS SYSTEM: No facial droop. Speech is clear. Obeys simple commands. Moves extremities. EXTREMITIES: No edema, no erythema seen. Results & Data Results & Data Vital Signs (Past 12 Hours) Vital Signs Temp Pulse Pulse Resp BP Pulse Ox O2 Del Method 01/04/23 15:49 95 H 01/04/23 14:51 36.5 C 93 H 18 106/71 95 Room Air 01/04/23 10:49 36.5 C 96 H 18 109/74 98 Room Air 01/04/23 07:58 86 01/04/23 07:18 36.7 C 81 18 104/69 97 Room Air
[2023-01-04] MEDS: PANCREAZE (LIPASE 16,800U) CAP PO SCH (16:56)
[2023-01-04] MEDS: AMITRIPTYLINE HCL 50 MG TAB PO SCH (20:34)
[2023-01-05] MEDS: HYDROmorphone INJ 0.5 MG/0.5 ML SYR IV PRN ×2 (00:05→08:29)
[2023-01-05] MEDS ORDERED: GABAPENTIN 600 MG TAB PO SCH (05:45)
[2023-01-05] MEDS: INSULIN ASPART PER UNIT CHARGE SC SCH ×2 (08:29→12:00)
[2023-01-05] MEDS: FOLIC ACID 1 MG TAB PO SCH (08:31)
[2023-01-05] MEDS: APIXABAN 5 MG TABLET PO SCH (08:31)
[2023-01-05] MEDS: THIAMINE HCL 100 MG TAB PO SCH (08:31)
[2023-01-05] MEDS: PANCREAZE (LIPASE 16,800U) CAP PO SCH ×2 (08:31→12:15)
[2023-01-05] MEDS: PANTOprazole 40 MG TAB PO SCH (08:31)
[2023-01-05] MEDS: MULTIVITAMIN TAB PO SCH (08:31)
[2023-01-05] MEDS: LANTUS PER UNIT CHARGE SQ SCH (08:33)
[2023-01-05] MEDS: oxyCODONE HCL IR 5 MG TAB (IMMEDIATE RELEASE) PO PRN (09:00)
[2023-01-05] MEDS: PROMETHAZINE HCL 12.5 MG in SODIUM CHLORIDE 0.9% 50 ML IV PRN (10:46)
[2023-01-05 11:23] VITALS: O2SAT 97
--- NOTE | 2023-01-05 12:06 | Discharge Summary ---
Date of Service January 05, 2023 Admission HPI Per Admitting Provider History is obtained from the patient and records. Medical history is significant for alcohol abuse, chronic pancreatitis, GERD/Renae's esophagus, ADD/mood disorder as per records, DM2 insulin requiring, hx PE as per records, recurrent DVT on Eliquis, history of chronic pain, hx narcotic abuse as per records/terminated medication agreement. Monthly admissions since October 2022 for abdominal pain in the setting of alcohol abuse. Last confinement 12/18-2022 for hyperglycemic crisis secondary to medical noncompliance, LGIB, chronic pancreatitis and alcoholic gastritis. Patient discharged on Creon, Lantus and Eliquis Rx. Patient went to alcohol rehab following discharge. Patient started drinking again last week. Personal stressors pushing him to drink. Some depression, denies suicidality. Achy epigastric pain going to his chest noted yesterday similar to pancreatitis attack. Nausea and bilious emesis episodes. No black/bloody stools. No chest pain, no SOB. No unusual headache symptoms. MEDICAL HISTORY: As above. SURGERIES: Appendectomy, cholecystectomy, vascular device placement, back surgery FAMILY HISTORY: There is a family history of mood disorder. Alcoholism, heart disease. 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 Admission Exam Per Admitting Provider GENERAL: Comfortable, alcoholic fetor, looks older than stated age, no respiratory distress SKIN: Normal color, warm HEENT: Alopecia, pink palpebral conjunctivae, no ptosis, dry buccal mucosa NECK : Supple, short neck, no tenderness CHEST : CTA, no tenderness HEART : Tachycardic, no obvious murmurs ABDOMEN: Some distention, epigastric tenderness EXTREMITIES : No LE swelling, no LE tenderness NEUROLOGIC : Coherent, no facial asymmetry, no other gross focality Principal Diagnosis Chronic pancreatitis related abdominal pain Noncompliance DM 2 insulin requiring, suboptimal control Alcohol abuse, ongoing Tobacco abuse, ongoing Discharge Exam GENERAL: Alert and oriented x3. NAD, on RA. HEENT: No pallor, no icterus. Pupils equal, round and reactive to light. Oral mucosa moist. NECK: No JVD, no neck masses. HEART: S1 and S2 heard. Regular rate and rhythm. No murmur, no gallop. RESPIRATORY SYSTEM: Normal AP diameter. No accessory muscle use. No wheezing, no crackles. ABDOMEN: Soft, bowel sounds present, nontender, no distention. CENTRAL NERVOUS SYSTEM: No facial droop. Speech is clear. Obeys simple commands. Moves extremities. EXTREMITIES: No edema, no erythema seen. Discharge Data Allergies Allergy/AdvReac Type Severity Reaction Status Date / Time No Known Allergies Allergy Verified 12/04/22 21:48 Consultations 01/03/23 04:01 ED Decision to Admit Stat Ordered Studies 01/03/23 01:26 CT Abd and Pelvis [CT abd pelvis IV con only] Stat Hospital Course (1) Alcohol abuse: Plan Chronic pancreatitis related abdominal pain- epigastric tenderness resolved on exam, tolerating advancement of diet well. Continue use of Creon with that. Patient advised in detail regarding alcohol cessation and tobacco cessation, patient verbalizes understanding. He clearly is not interested in doing any of them. Pain management. Patient feels better/alert and oriented, and would like to go home today. Noncompliance/history of leaving AMA: Patient is known to be noncompliant with his care and has history of leaving AMA. DM2 insulin requiring , suboptimal control Secondary to medical noncompliance, A1c of 10.1 on 12/18/2022. Last admission agreed to use only Lantus at home, continue with sliding scale while in the hospital.. History of PE/DVT on Eliquis:Continue with Eliquis. Alcoholic abuse: Continues to still drink, RHETT S protocol while in hospital. Will complete gabapentin taper upon discharge. Other chronic medical conditions:Resume home meds as able history GERD/Renae's esophagus history of chronic pain, hx narcotic abuse as per records/terminated medication agreement. ADD/mood disorder as per records DVT prophylaxis: Patient on Eliquis Full code Patient being discharged to home with following instruction at the point of discharge: Follow-up with your primary care physician within a week time and likely you will need labs CBC/CMP/magnesium/phosphorus. For your chronic pancreatitis and related epigastric abdominal pain, follow-up with your GI doctor in 2 to 3 weeks time for possible outpatient EGD scope/EUS and colonoscopy. For your diabetes, closely follow-up with your PCP for long-term management or establish with diabetic clinic. Maintain compliance with your diabetic medications as prescribed. Keep candy/orange juices by your side all the time for any event of hypoglycemia as discussed at the bedside. For your chronic pancreatitis related epigastric pain, recommend alcohol abstinence and tobacco cessation; and recommend adherence with Creon. If pain comes back again, you will likely need follow-up with your PCP or pain management clinic for further evaluation and pain management prescription. Take your medications as prescribed. Home Health Attestation I certify that this patient is under my care and that I, or a physicians nurse assistant working with me, had a face to-face encounter that meets the home health [id number] encounter requirements with this patient. The encounter with the patient was in whole, or in part, for the following m edical condition, which is the primary reason for home health care (list medical condition): I certify that, based on my findings, the following services are medically nece ssary home health services: My clinical findings support the need for the above services because: Further, I certify that my clinical findings support that this patient is homebound (i.e. absences from home require considerable and taxing effort and are for medical reasons or shinto services or infrequently or of short duration when for other reasons) because: Certification for Home Health Services: Based on the above findings, I certify that this patient is confined to the home and needs intermittent fpc care, physical therapy and/or speech therapy or continues to need occupational therapy. The patient is under my care, and I have initiated the establishment of the plan of care. This patient will be followed by a physician who will periodically review the plan of care. Total Time Total Time Spent Total Time Spent (In Minutes): 45 Discharge Plan Discharge Items Patient Disposition: Home - Self-Care Reason For Visit: B[facility]ARD [place]IVERA PAIN Discharge Diagnosis: Chronic pancreatitis related abdominal pain Noncompliance DM 2 insulin requiring, suboptimal control Alcohol abuse, ongoing Tobacco abuse, ongoing Activity: Resume your previous activity Non-emergency contact: Primary Care Provider Call non-emergency contact if: you have any medication questions, your symptoms worsen and your temperature is above 101 Follow-up/Referrals: Dhiraj Myers DO [Primary Care Provider] - (Date & Time 01/12/2023 3:00 PM Provider Brandie Galvez DO Department [facility] ) Diet: Carb Consistent or DM2 and Low Fiber Addtl Attending Provider Instructions: Follow-up with your primary care physician within a week time and likely you will need labs CBC/CMP/magnesium/phosphorus. For your chronic pancreatitis and related epigastric abdominal pain, follow-up with your GI doctor in 2 to 3 weeks time for possible outpatient EGD scope/EUS and colonoscopy. For your diabetes, closely follow-up with your PCP for long-term management or establish with diabetic clinic. Maintain compliance with your diabetic medications as prescribed. Keep candy/orange juices by your side all the time for any event of hypoglycemia as discussed at the bedside. For your chronic pancreatitis related epigastric pain, recommend alcohol abstinence and tobacco cessation; and recommend adherence with Creon. If pain comes back again, you will likely need follow-up with your PCP or pain management clinic for further evaluation and pain management prescription. Take your medications as prescribed. Pending Studies at Discharge: No Stand-Alone Forms: My [facility], Smoking Cessation Medications and DC Order Prescriptions: New gabapentin 600 mg Tablet 600 mg PO Q12H 2 Days Qty: 4 0RF folic acid 1 mg Tablet 1 mg PO QAM Qty: 30 0RF multivitamin with folic acid [Daily-Chriss (with folic acid)] 400 mcg Tablet 1 tab PO QAM Qty: 30 0RF thiamine HCl (vitamin B1) 100 mg Tablet 100 mg PO QAM 15 Days Qty: 15 0RF Continued Eliquis 5 mg tablet 5 mg PO BID hydroxyzine pamoate 25 mg capsule 25 mg PO BID PRN (Reason: Anxiety) Creon 24,000-76,000 -120,000 unit capsule,delayed release(DR/EC) 1 cap PO TID Qty: 90 0RF Rx Instructions: administer with meals and/or snacks glipizide 5 mg tablet extended release 24hr 5 mg PO DAILY amitriptyline 50 mg tablet 50 mg PO HS pantoprazole 40 mg tablet,delayed release (DR/EC) 40 mg PO DAILY insulin glargine [Lantus Solostar U-100 Insulin] 100 unit/mL (3 mL) insulin pen 15 unit subcut HS oxycodone 5 mg Tablet 5 mg PO Q8H PRN (Reason: pain (scale score 7-10)) Qty: 9 0RF Discharge Orders: Discharge Order (Routine); Ordered 01/05/23 Ordered By: Emanuel Flood Admission Data Admit Date/Time: 01/04/23 18:08 Attending Provider: Emanuel Flood Admit Provider: Emanuel Flood Primary Care Provider: Dhiraj Myers Other Providers: Bishop Enamorado
[2023-01-05 12:26] VITALS: BP 115/81; TEMP 97.7
[2023-01-05 12:29] VITALS: PULSE 70
[2023-01-06] MEDS ORDERED: GABAPENTIN 600 MG TAB PO SCH (17:45)
== END 2023-01-05 13:28 | disposition home or self-care (01) | DRG 439 ==
LOC: 2N 23:59 → ED 23:59 → SUATTDRO 01-03 05:28 → 2N 01-03 07:31

== ENCOUNTER 2023-01-06 20:20 | Inpatient (IN) ==
[2023-01-06] MEDS ORDERED: THIAMINE HCL 100 MG in SYRINGE 9 ML IV STA (20:59)
[2023-01-06] MEDS ORDERED: FOLIC ACID 1 MG in SYRINGE 9.8 ML IV STA (20:59)
[2023-01-06] MEDS ORDERED: SODIUM CHLORIDE 0.9% 1000ML 2,000 ML IV ONE (20:59)
--- NOTE | 2023-01-06 21:12 | Emergency Department Note ---
Impression & Plan SBO (small bowel obstruction), Alcohol abuse, Fall, DKA (diabetic ketoacidosis) ED Provider Note NAME: RIKY MELTON AGE: 47 SEX: M : 1975 ARRIVES VIA: Ambulance INFORMANT: Patient, EMS ED PROVIDER(S): Geoff Andrade DO CHIEF COMPLAINT: Alcohol intoxication HPI: Patient is a 47-year-old male with a past medical history of acute on chronic pancreatitis, diabetes, alcohol abuse, hyponatremia who presents to the ER following a fall. He notes that he was drinking all day for the past 10 hours. He was found in the bushes per EMS. He denies any headache or chest pa in. He notes he has his typical pancreatitis in the middle abdomen radiating through to the back and does come up into the epigastric region. Associated with nausea but no vomiting. Denies any dysuria, urgency, or frequency. No other exacerbating or remitting factors. He notes he feels like he has to poop but has been having trouble doing that today. He has had chronic abdominal pain since he left the facility. No new chest or belly pain since leaving. PAST MEDICAL HISTORY:See Below PAST SURGICAL HISTORY:See Below FAMILY HISTORY:See Below SOCIAL HISTORY:See Below HOME MEDICATIONS:See Below ALLERGIES:See Below VITALS:See Below PHYSICAL EXAMINATION: GENERAL: alert, disheveled, smell of alcohol on breath, nontoxic HEAD: normal cephalic, atraumatic EYE EXAM: normal conjunctiva, PERRL and EOM's grossly intact NECK: supple, no nuchal rigidity, no adenopathy, non-tender CHEST: stable to compression anteriorly and posteriorly LUNGS: clear to auscultation. Normal chest wall mechanics HEART: no murmurs, S1 normal and S2 normal ABDOMEN: abdomen soft, tender in the epigastric region, normo-active bowel sounds, no masses, no rebound or guarding. PELVIS: stable to compression anteriorly and posteriorly BACK: Back is symmetrical on inspection and there is no deformity, no midline tenderness, no CVA tenderness. UPPER EXTREMITIES: full active and passive range of motion of all joints without tenderness to palpation LOWER EXTREMITIES: full active and passive range of motion of all joints without tenderness to palpation NEURO EXAM: Awake alert following commands oriented to person and place moving all extremities. MEDICAL DECISION MAKING: Patient is a 47-year-old well-known alcoholic and diabetic that presents to the ER for abdominal pain. IV was established blood work was obtained. Labs show no significant leukocytosis or anemia. BMP with a CO2 of 15 and a gap of 20. Glucose was elevated at 360. LFTs bilirubin was unremarkable. Troponin was negative. Lipase normal. UA was clean. Alcohol at 300. He was placed on insulin drip with the gap metabolic acidosis which is likely multifactorial secondary to the hyperglycemia and alcohol. He was given IV fluids. He was given Toradol morphine and Zofran. He was updated at bedside. CT abdomen pelvis suggested a small bowel obstruction however he has no vomiting. Did also perform CT of the head which was unremarkable. Chest x-ray was clean. Discussed the case with Dr. Sosa for admission and did notify Andrews Waite from general surgery. Triage Nursing notes reviewed. Limited review of prior medical records performed Vital Signs: reviewed and remarkable for no significant abnormalities Differential diagnosis: Differential diagnoses include major intracranial, cervical, spinal, thoracic, abdominal, pelvic and neurologic injury. Fracture, contusion, sprain, strain, laceration, abrasions included as well. ER treatment provided: See below Diagnostics interpreted by me include EKG and cardiac monitoring as listed below: -Cardiac Monitoring: An order was placed for continuous cardiac monitoring. The monitor shows a rate of 132 with sinus rhythm. -ECG: Sinus tachycardia rate of 132 Normal axis No PVCs Poor baseline QTc 438 No significant change from previous performed 2 days ago -Laboratory studies:Interpreted by me as stated above in MDM and shown below. Imaging studies: Xrays: As interpreted by me: Portable AP upright 1 view of the chest shows no pneumonia CTs show: CT head and abdomen as described above Consultation(s): As described in MDM Procedures:none Critical Care: None Past Med/Surg History Medical History Abdominal pain Abdominal pain Abdominal pain, acute, epigastric Acute hyperglycemia Alcohol abuse (Unknown) Alcohol abuse Alcohol abuse Alcohol withdrawal Alcoholic ketosis Renae's esophagus (Unknown) "per EGD 11/23/09 " On 05/31/11 09:06 Martinez Jose wrote "per EGD 11/23/09 " Chest pain COVID-19 Depression Depression DM type 2 (diabetes mellitus, type 2) Encounter for alcohol abuse counseling and surveillance Encounter for pre-operative examination Encounter for tobacco use cessation counseling H/O acute pancreatitis "recurrent" History of substance abuse Hyperglycemia Intentional drug overdose Lumbar degenerative disc disease Mood disorder Mood disorder Nausea & vomiting Neuropathy Pancreatic duct stones Pancreatitis Panic disorder Pulmonary embolism on chronic apixaban Retrosternal chest pain Suicidal ideation Suicidal ideation Suicide attempt Surgical History H/O esophagogastroduodenoscopy "EGD 11/23/2009- mild gastritis, suspicious for gastroparesis, Z-line irregular EUS 02/04/2010- mild chronic pancreatitis, pronounced cholesterolosis of gallbladder, no biliary dilation or stones, probable gastroparesis EGD 10/31/2014- gastritis" S/P lumbar fusion L4-S1 2014 Family History Father Alcohol abuse Social History Smoking Status: Former smoker Tobacco Type: Cigarettes Second Hand Exposure: No; Do You Dip or Chew Tobacco: Yes; Hx Alcohol Use: Yes Alcohol type: beer Hx Substance Use: No Preferred Language: Hebrew Communication Ability: Effective Oven Unloader Required: No Beliefs That Will Affect Care: None marital status: Current Living Situation: Parent Current Living Situation Comment: from home with mother How many Children do You have: 3 Feels Safe at Home: Yes Assistive Devices: None Allergies Allergies Allergy/AdvReac Type Severity Reaction Status Date / Time No Known Allergies Allergy Verified 01/06/23 23:11 Home Meds Home Medications Medication Instructions Recorded Confirmed apixaban 5 mg tablet (Eliquis) 5 mg PO BID 08/17/22 01/06/23 hydroxyzine pamoate 25 mg capsule 25 mg PO BID PRN Anxiety 10/20/22 01/06/23 amitriptyline 50 mg tablet 50 mg PO HS 01/03/23 01/06/23 glipizide 5 mg tablet, extended 5 mg PO DAILY 01/03/23 01/06/23 release 24 hr insulin glargine 100 unit/mL (3 15 unit subcut HS 01/03/23 01/06/23 mL) subcutaneous pen (Lantus Solostar U-100 Insulin) pantoprazole 40 mg tablet,delayed 40 mg PO DAILY 01/03/23 01/06/23 release Previous Rx's Medication Instructions Recorded [id number] 1 cap PO TID #90 caps 12/21/22 24,000-76,000-120,000 unit capsule,delayed rel (Creon) folic acid 1 mg tablet 1 mg PO QAM #30 tabs 01/05/23 gabapentin 600 mg tablet 600 mg PO Q12H 2 days #4 tabs 01/05/23 multivitamin with folic acid 400 1 tab PO QAM #30 tabs 01/05/23 mcg tablet (Daily-Chriss (with folic acid)) oxycodone 5 mg tablet 5 mg PO Q8H PRN pain (scale score 01/05/23 7-10) #9 tabs thiamine HCl (vitamin B1) 100 mg 100 mg PO QAM 15 days #15 tabs 01/05/23 tablet Results & Data (ED) Vital Signs Vital Signs - 24 hr 01/06/23 20:23 01/06/23 21:10 01/06/23 21:13 Pulse Rate 135 H 118 H Pulse Rate [Apical] 121 H Pulse Rate from SpO2 Sensor Respiratory Rate 20 18 Respiratory Effort / Characteristics Non-Labored Non-Labored Respiratory Depth Normal Blood Pressure 110/89 Blood Pressure [Right Arm] 133/89 Blood Pressure Mean 96 Blood Pressure Mean [Right Arm] 103 Pulse Oximetry 97 96 Oxygen Delivery Method Room Air Room Air Sepsis Recent Fever Within 48 Hours No Sepsis New/Unexplained Change in Mental Status No Sepsis Action Taken by Nursing No Action Required 01/06/23 21:30 01/06/23 21:30 01/06/23 22:00 Pulse Rate 118 H Pulse Rate [Apical] Pulse Rate from SpO2 Sensor Respiratory Rate 16 Respiratory Effort / Characteristics Respiratory Depth Blood Pressure 104/79 98/74 L Blood Pressure [Right Arm] Blood Pressure Mean 89 82 Blood Pressure Mean [Right Arm] Pulse Oximetry 95 Oxygen Delivery Method Sepsis Recent Fever Within 48 Hours Sepsis New/Unexplained Change in Mental Status Sepsis Action Taken by Nursing 01/06/23 22:00 01/06/23 22:37 01/06/23 22:38 Pulse Rate 120 H Pulse Rate [Apical] 120 H Pulse Rate from SpO2 Sensor 121 H Respiratory Rate 18 20 16 Respiratory Effort / Characteristics Non-Labored Respiratory Depth Normal Blood Pressure 97/68 L Blood Pressure [Right Arm] 97/68 L Blood Pressure Mean 77 Blood Pressure Mean [Right Arm] 77 Pulse Oximetry 92 98 98 Oxygen Delivery Method Room Air Sepsis Recent Fever Within 48 Hours Sepsis New/Unexplained Change in Mental Status Sepsis Action Taken by Nursing 01/06/23 23:00 01/07/23 00:00 01/07/23 00:30 Pulse Rate 120 H 114 H 119 H Pulse Rate [Apical] Pulse Rate from SpO2 Sensor 120 H 114 H 118 H Respiratory Rate 16 14 14 Respiratory Effort / Characteristics Respiratory Depth Blood Pressure 112/84 96/75 L 93/69 L Blood Pressure [Right Arm] Blood Pressure Mean 93 82 77 Blood Pressure Mean [Right Arm] Pulse Oximetry 99 95 98 Oxygen Delivery Method Sepsis Recent Fever Within 48 Hours Sepsis New/Unexplained Change in Mental Status Sepsis Action Taken by Nursing Laboratory Data 01/06/23 20:30 01/06/23 20:30 Lab Results 01/06/23 01/06/23 01/06/23 Range/Units 20:30 20:30 20:30 WBC 6.80 (4.8-10.8) K/ul RBC 4.54 L (4.70-6.10) M/uL Hgb 14.9 (14.0-18.0) g/dl Hct 41.0 L (42.0-52.0) % MCV 90.3 (80.0-100.0) fL MCH 32.8 (25.0-34.0) pg MCHC 36.3 H (32.0-36.0) g/dL RDW Std Deviation 36.6 (36.4-46.3) fL RDW Coeff of Gucci 11.2 L (11.5-14.5) % Plt Count 251 (130-400) K/uL MPV 9.5 (9.4-12.4) fL Immature Gran % (Auto) 0.3 % Neut % (Auto) 55.1 % Lymph % (Auto) 30.0 % [facility] % (Auto) 7.6 % Eos % (Auto) 6.3 % Baso % (Auto) 0.7 % Neut # (Auto) 3.74 (1.40-6.50) K/uL Lymph # (Auto) 2.04 (1.2-3.4) K/uL [facility] # (Auto) 0.52 (0.11-0.59) K/uL Eos # (Auto) 0.43 (0-0.50) K/uL Baso # (Auto) 0.05 (0-0.2) K/uL Immature Gran # (Auto) 0.02 (0.01-0.20) K/uL VBG pH (7.36-7.41) VBG pCO2 (38-50) mmHg VBG pO2 mmHg VBG HCO3 mmol/L VBG O2 Saturation % VBG Base Excess mEq/L Sodium 132 L (136-145) mmol/L Potassium 3.8 (3.5-5.1) mmol/L Chloride 98 (98-107) mmol/L Carbon Dioxide 15 L (21-32) mmol/L Anion Gap 19 H (3-11) BUN 9 (6-23) mg/dl Creatinine 0.92 (0.6-1.4) mg/dl Est Cr Clr Drug Dosing 106.6 ml/min Est GFR ( Amer) 112.8 ml/min Est GFR (Non-Af Amer) 97.3 ml/min BUN/Creatinine Ratio 9.8 L (10-20) Glucose 358 H* (70-99(Fasting)) mg/dl Calcium 9.9 (8.6-10.3) mg/dl Total Bilirubin 0.6 (0.2-1.0) mg/dl AST 32 (13-39) U/L ALT 25 (7-52) U/L Alkaline Phosphatase 63 (34-104) U/L Troponin I High Sens 2.9 (0-20) pg/ml Total Protein 7.4 (6.0-8.3) gm/dl Albumin 3.9 (3.4-5.0) gm/dl Globulin 3.5 (2.5-4.0) gm/dl Albumin/Globulin Ratio 1.1 (0.9-2) Lipase 9 L (11-82) U/L Urine Color Urine Appearance (Clear) Urine pH (4.5-7.5) Ur Specific [place] (1.000-1.030) Urine Protein (Negative) Urine Glucose (UA) (Negative) Urine Ketones (Negative) Urine Blood (Negative) Urine Nitrite (Negative) Urine Bilirubin (Negative) Urine Urobilinogen (Negative) Ur Leukocyte Esterase (Negative) Ethyl Alcohol mg/dL 300.9 H (<10.0) mg/dl SARS-CoV-2, RNA, NAAT (NEGATIVE) 01/06/23 01/06/23 01/06/23 Range/Units 21:12 23:36 23:36 WBC (4.8-10.8) K/ul RBC (4.70-6.10) M/uL Hgb (14.0-18.0) g/dl Hct (42.0-52.0) % MCV (80.0-100.0) fL MCH (25.0-34.0) pg MCHC (32.0-36.0) g/dL RDW Std Deviation (36.4-46.3) fL RDW Coeff of Gucci (11.5-14.5) % Plt Count (130-400) K/uL MPV (9.4-12.4) fL Immature Gran % (Auto) % Neut % (Auto) % Lymph % (Auto) % [facility] % (Auto) % Eos % (Auto) % Baso % (Auto) % Neut # (Auto) (1.40-6.50) K/uL Lymph # (Auto) (1.2-3.4) K/uL [facility] # (Auto) (0.11-0.59) K/uL Eos # (Auto) (0-0.50) K/uL Baso # (Auto) (0-0.2) K/uL Immature Gran # (Auto) (0.01-0.20) K/uL VBG pH 7.33 L (7.36-7.41) VBG pCO2 49 (38-50) mmHg VBG pO2 37 mmHg VBG HCO3 26 mmol/L VBG O2 Saturation < 60.0 % VBG Base Excess -0.7 mEq/L Sodium (136-145) mmol/L Potassium (3.5-5.1) mmol/L Chloride (98-107) mmol/L Carbon Dioxide (21-32) mmol/L Anion Gap (3-11) BUN (6-23) mg/dl Creatinine (0.6-1.4) mg/dl Est Cr Clr Drug Dosing ml/min Est GFR ( Amer) ml/min Est GFR (Non-Af Amer) ml/min BUN/Creatinine Ratio (10-20) Glucose (70-99(Fasting)) mg/dl Calcium (8.6-10.3) mg/dl Total Bilirubin (0.2-1.0) mg/dl AST (13-39) U/L ALT (7-52) U/L Alkaline Phosphatase (34-104) U/L Troponin I High Sens (0-20) pg/ml Total Protein (6.0-8.3) gm/dl Albumin (3.4-5.0) gm/dl Globulin (2.5-4.0) gm/dl Albumin/Globulin Ratio (0.9-2) Lipase (11-82) U/L Urine Color Yellow Urine Appearance Clear (Clear) Urine pH 5.0 (4.5-7.5) Ur Specific [place] 1.012 (1.000-1.030) Urine Protein Negative (Negative) Urine Glucose (UA) 3+ H (Negative) Urine Ketones Trace H (Negative) Urine Blood Negative (Negative) Urine Nitrite Negative (Negative) Urine Bilirubin Negative (Negative) Urine Urobilinogen Negative (Negative) Ur Leukocyte Esterase Negative (Negative) Ethyl Alcohol mg/dL (<10.0) mg/dl SARS-CoV-2, RNA, NAAT NEGATIVE (NEGATIVE) Administered Medications Discontinued Medications Sodium Chloride (Nss 1000ml) 2,000 mls @ 999 mls/hr IV .Q2H1M ONE Stop: 01/06/23 22:59 Last Infusion: 01/06/23 22:45 Dose: 0 mls/hr Documented By: Admin: 01/06/23 21:11 Dose: 999 mls/hr Documented By: TRAMAINE Thiamine HCl 100 mg/ Syringe 10 mls @ 2 mls/min IV NOW STA Stop: 01/06/23 21:03 Last Admin: 01/06/23 22:39 Dose: 2 mls/min Documented By: TRAMAINE Folic Acid 1 mg/ Syringe 10 mls @ 5 mls/min IV NOW STA Stop: 01/06/23 21:00 Last Admin: 01/06/23 22:39 Dose: 5 mls/min Documented By: TRAMAINE Insulin Human Regular 250 (units/ Sodium Chloride) 250 mls @ 9 mls/hr IV .Q24H [facility]; Protocol Stop: 02/05/23 22:44 Last Titration: 01/07/23 00:47 Dose: 0 units/hr, 0 mls/hr Documented By: TRACIE Co-signed By: Admin: 01/06/23 23:29 Dose: 9 units/hr, 9 mls/hr Documented By: TRACIE Co-signed By: Parenteral Electrolytes (Plasma-Lyte A Ph 7.4) 1,000 mls @ 999 mls/hr IV .Q1H1M ONE Stop: 01/06/23 23:38 Last Infusion: 01/07/23 00:47 Dose: 0 mls/hr Documented By: Admin: 01/06/23 23:29 Dose: 999 mls/hr Documented By: TRACIE Insulin Human Regular (Novolin-R Bolus From Bag) 9 units IV ONE ONE Stop: 01/06/23 22:46 Last Admin: 01/06/23 23:29 Dose: 9 units Documented By: TRACIE Co-signed By: Ioversol (Optiray 320 100ml) 86 ml IV ONCE ONE Stop: 01/06/23 22:24 Last Admin: 01/06/23 22:23 Dose: 86 ml Documented By: LUZMARIA Ketorolac Tromethamine (Ketorolac Tromethamine 15 Mg/Ml Vial) 15 mg IV NOW ONE Stop: 01/06/23 22:54 Last Admin: 01/06/23 23:20 Dose: 15 mg Documented By: TRACIE Morphine Sulfate (Morphine Sulfate 4 Mg/Ml 1 Ml Carp\\Vial) 4 mg IV NOW STA Stop: 01/06/23 23:04 Last Admin: 01/06/23 23:20 Dose: 4 mg Documented By: TRACIE Imaging Data Radiologist's Impression: Abdomen/Pelvis CT 01/06/23 21:08 Exam(s): CT ABDOMEN + PELVIS With Contrast IV Amt: 86ml optiray 320 EXAM: CT Abdomen and Pelvis With Intravenous Contrast CLINICAL HISTORY: Reason for exam: abd pain. TECHNIQUE: Axial computed tomography images of the abdomen and pelvis with intravenous contrast. CTDI is 25.3 mGy and DLP is 1504.56 mGy-cm. Automated exposure control was utilized for the study. A dose lowering technique was utilized adhering to the principles of ALARA. CONTRAST: Patient received 86ml optiray 320 of IV contrast COMPARISON: Dated 01/03/23 FINDINGS: Lung bases: Unremarkable. No mass. No consolidation. ABDOMEN: Liver: Unremarkable. No mass. Gallbladder and bile ducts: The patient is status post cholecystectomy. No ductal dilation. Pancreas: There is calcification of the pancreatic parenchyma compatible with chronic pancreatitis. No ductal dilation. Spleen: Unremarkable. No splenomegaly. Adrenals: Unremarkable. No mass. Kidneys and ureters: Unremarkable. No solid mass. No hydronephrosis. Stomach and bowel: There is been interval increase in fluid distention of multiple small bowel loops with a focal point of obstruction suggested in the right lower quadrant (image 58 series 4). No mucosal thickening. PELVIS: Appendix: No findings to suggest acute appendicitis. Bladder: The urinary bladder is quite distended. Reproductive: Unremarkable as visualized. ABDOMEN and PELVIS: Intraperitoneal space: Unremarkable. No free air. No significant fluid collection. Bones/joints: There are degenerative changes of the thoracolumbar spine. There are postsurgical changes of the lower lumbar spine. No acute fracture. No dislocation. Soft tissues: Unremarkable. Vasculature: Unremarkable. No abdominal aortic aneurysm. Lymph nodes: Unremarkable. No enlarged lymph nodes. IMPRESSION: Progressive distention of small bowel loops with a focal point of obstruction suggested in the right lower quadrant. No evidence for perforation. Electronically signed by: Jd Jo MD 01/06/23 23:[address] 01/06/23 21:08 Exam(s): CT HEAD Without Contrast EXAM: CT Head Without Intravenous Contrast CLINICAL HISTORY: Reason for exam: fall etoh. TECHNIQUE: Axial computed tomography images of the head/brain without intravenous contrast. CTDI is 37.61 mGy and DLP is 702.46 mGy-cm. Automated exposure control was utilized for the study. A dose lowering technique was utilized adhering to the principles of ALARA. COMPARISON: Dated 12/20/22 FINDINGS: Brain: Unremarkable. No hemorrhage. No significant white matter disease. No edema. Ventricles: There are calcifications of the choroid plexus and pineal gland. Bones/joints: Unremarkable. No acute fracture. Soft tissues: Unremarkable. Sinuses: There is moderate sinus mucosal thickening within the left maxillary sinus. There is polypoid disease versus retention cysts in the right maxillary sinus. Mastoid air cells: Unremarkable as visualized. No mastoid effusion. IMPRESSION: No acute findings in the head/brain. Electronically signed by: Jd Jo MD 01/06/23 23:34 PM Discharge Plan Visit Data Chief Complaint: Abdominal Pain Stated Complaint: ABDOMINAL/CHEST PAIN ED Provider: Geoff Andrade Discharge Problem: SBO (small bowel obstruction), Alcohol abuse, Fall, DKA (diabetic ketoacidosis) Forms Stand Alone Forms: [facility] Prescriptions Prescriptions: No Action Eliquis 5 mg tablet 5 mg PO BID hydroxyzine pamoate 25 mg capsule 25 mg PO BID PRN (Reason: Anxiety) Creon 24,000-76,000 -120,000 unit capsule,delayed release(DR/EC) 1 cap PO TID Qty: 90 0RF Rx Instructions: administer with meals and/or snacks glipizide 5 mg tablet extended release 24hr 5 mg PO DAILY amitriptyline 50 mg tablet 50 mg PO HS pantoprazole 40 mg tablet,delayed release (DR/EC) 40 mg PO DAILY insulin glargine [Lantus Solostar U-100 Insulin] 100 unit/mL (3 mL) insulin pen 15 unit subcut HS gabapentin 600 mg Tablet 600 mg PO Q12H 2 Days Qty: 4 0RF folic acid 1 mg Tablet 1 mg PO QAM Qty: 30 0RF multivitamin with folic acid [Daily-Chriss (with folic acid)] 400 mcg Tablet 1 tab PO QAM Qty: 30 0RF thiamine HCl (vitamin B1) 100 mg Tablet 100 mg PO QAM 15 Days Qty: 15 0RF oxycodone 5 mg Tablet 5 mg PO Q8H PRN (Reason: pain (scale score 7-10)) Qty: 9 0RF Referrals Referrals: Dhiraj Myers DO [Primary Care Provider] -
[2023-01-06 21:42] LABS: Albumin Level 3.9 gm/dl (3.4-5.0); Bilirubin,Total 0.6 mg/dl (0.2-1.0); Calcium 9.9 mg/dl (8.6-10.3); Potassium 3.8 mmol/L (3.5-5.1)
[2023-01-06 21:45] LABS: Basophils # (auto) 0.05 K/uL (0-0.2); Basophils % (auto) 0.7 %; Eosinophils # (auto) 0.43 K/uL (0-0.50); Eosinophils % (auto) 6.3 %; Hemoglobin 14.9 g/dl (14.0-18.0); Immature Granulocytes # (auto) 0.02 K/uL (0.01-0.20); Immature Granulocytes % (auto) 0.3 %; Lymphocytes # (auto) 2.04 K/uL (1.2-3.4); Mean Corpuscular Hemoglobin 32.8 pg (25.0-34.0); Mean Corpuscular Hgb Conc 36.3 g/dL (32.0-36.0); Mean Corpuscular Volume 90.3 fL (80.0-100.0); Mean Platelet Volume 9.5 fL (9.4-12.4); Monocytes # (auto) 0.52 K/uL (0.11-0.59); Monocytes % (auto) 7.6 %; Neutrophils # (auto) 3.74 K/uL (1.40-6.50); Neutrophils % (auto) 55.1 %; Platelet Count 251 K/uL (130-400); RDW Coefficient of Variation 11.2 % (11.5-14.5); RDW Standard Deviation 36.6 fL (36.4-46.3); Red Blood Count 4.54 M/uL (4.70-6.10)
[2023-01-06 21:49] LABS: Appearance Urine Clear (Clear); Bilirubin Urine Negative (Negative); Blood Urine Negative (Negative); Color Urine Yellow; Glucose Urine UA 3+ (Negative); Ketones Urine Trace (Negative); Leukocyte Esterase Urine Negative (Negative); Nitrite Urine Negative (Negative); Protein Urine Negative (Negative); Specific Gravity Urine 1.012 (1.000-1.030); Urobilinogen Urine Negative (Negative)
[2023-01-06 21:57] LABS: Albumin Globulin Ratio 1.1 (0.9-2); BUN Creatinine Ratio 9.8 (10-20); Creatinine Clr Calc Pharmacy 106.6 ml/min; Est GFR (African American) 112.8 ml/min; Est GFR (Non-African American) 97.3 ml/min; Globulin 3.5 gm/dl (2.5-4.0); Total Protein 7.4 gm/dl (6.0-8.3); Troponin I High Sensitivity 2.9 pg/ml (0-20)
[2023-01-06] MEDS ORDERED: OPTIRAY 320 100ml IV ONE (22:23)
[2023-01-06] MEDS ORDERED: DEXTROSE 50% 50 ML SYRINGE IV PRN (22:38)
[2023-01-06] MEDS ORDERED: CARBOHYDRATES FOR HYPOGLYCEMIA PO PRN (22:38)
[2023-01-06] MEDS ORDERED: PLASMA-LYTE A 1,000 ML IV ONE (22:38)
[2023-01-06] MEDS ORDERED: DKA GOAL RANGE 150-250 mg/dl ONE (22:38)
[2023-01-06] MEDS ORDERED: GLUCOSE 40% GEL 15 GM TUBE PO PRN (22:38)
[2023-01-06] MEDS ORDERED: GLUCAGON FOR INJ 1 MG VIAL SQ PRN (22:38)
[2023-01-06] MEDS ORDERED: GLUCOSE 10 TAB/TUBE PO PRN (22:38)
[2023-01-06] MEDS ORDERED: STAT INSULIN DRIP STA (22:38)
[2023-01-06] MEDS ORDERED: NovoLIN-R BOLUS FROM BAG IV ONE (22:45)
[2023-01-06] MEDS ORDERED: INSULIN REGULAR 250 UNITS in SODIUM CHLORIDE 0.9% 247.5 ML IV SCH (22:45)
[2023-01-06] MEDS ORDERED: KETOROLAC TROMETHAMINE 15 MG/ML VIAL IV ONE (22:53)
[2023-01-06] MEDS ORDERED: MoRPHine SULFATE 4 MG/ML 1 ML CARP\\VIAL IV STA (23:03)
--- NOTE | 2023-01-06 23:34 | CT Scan Report ---
Exam(s): CT ABDOMEN + PELVIS With Contrast IV Amt: 86ml optiray 320 EXAM: CT Abdomen and Pelvis With Intravenous Contrast CLINICAL HISTORY: Reason for exam: abd pain. TECHNIQUE: Axial computed tomography images of the abdomen and pelvis with intravenous contrast. CTDI is 25.3 mGy and DLP is 1504.56 mGy-cm. Automated exposure control was utilized for the study. A dose lowering technique was utilized adhering to the principles of ALARA. CONTRAST: Patient received 86ml optiray 320 of IV contrast COMPARISON: Dated 01/03/23 FINDINGS: Lung bases: Unremarkable. No mass. No consolidation. ABDOMEN: Liver: Unremarkable. No mass. Gallbladder and bile ducts: The patient is status post cholecystectomy. No ductal dilation. Pancreas: There is calcification of the pancreatic parenchyma compatible with chronic pancreatitis. No ductal dilation. Spleen: Unremarkable. No splenomegaly. Adrenals: Unremarkable. No mass. Kidneys and ureters: Unremarkable. No solid mass. No hydronephrosis. Stomach and bowel: There is been interval increase in fluid distention of multiple small bowel loops with a focal point of obstruction suggested in the right lower quadrant (image 58 series 4). No mucosal thickening. PELVIS: Appendix: No findings to suggest acute appendicitis. Bladder: The urinary bladder is quite distended. Reproductive: Unremarkable as visualized. ABDOMEN and PELVIS: Intraperitoneal space: Unremarkable. No free air. No significant fluid collection. Bones/joints: There are degenerative changes of the thoracolumbar spine. There are postsurgical changes of the lower lumbar spine. No acute fracture. No dislocation. Soft tissues: Unremarkable. Vasculature: Unremarkable. No abdominal aortic aneurysm. Lymph nodes: Unremarkable. No enlarged lymph nodes. IMPRESSION: Progressive distention of small bowel loops with a focal point of obstruction suggested in the right lower quadrant. No evidence for perforation. Electronically signed by: Jd Jo MD 01/06/23 23:33 PM
--- NOTE | 2023-01-06 23:35 | CT Scan Report ---
Exam(s): CT HEAD Without Contrast EXAM: CT Head Without Intravenous Contrast CLINICAL HISTORY: Reason for exam: fall etoh. TECHNIQUE: Axial computed tomography images of the head/brain without intravenous contrast. CTDI is 37.61 mGy and DLP is 702.46 mGy-cm. Automated exposure control was utilized for the study. A dose lowering technique was utilized adhering to the principles of ALARA. COMPARISON: Dated 12/20/22 FINDINGS: Brain: Unremarkable. No hemorrhage. No significant white matter disease. No edema. Ventricles: There are calcifications of the choroid plexus and pineal gland. Bones/joints: Unremarkable. No acute fracture. Soft tissues: Unremarkable. Sinuses: There is moderate sinus mucosal thickening within the left maxillary sinus. There is polypoid disease versus retention cysts in the right maxillary sinus. Mastoid air cells: Unremarkable as visualized. No mastoid effusion. IMPRESSION: No acute findings in the head/brain. Electronically signed by: Jd Jo MD 01/06/23 23:34 PM
[2023-01-06 23:49] LABS: Base Excess VBG -0.7 mEq/L; HCO3 VBG 26 mmol/L; Oxygen Saturation VBG < 60.0 %; PCO2 VBG 49 mmHg (38-50); PO2 VBG 37 mmHg; pH VBG 7.33 (7.36-7.41)
[2023-01-07] MEDS ORDERED: LANTUS PER UNIT CHARGE SQ STA (00:23)
[2023-01-07] MEDS ORDERED: LACTATED RINGER'S 1,000 ML IV STA (00:35)
[2023-01-07] MEDS ORDERED: GABAPENTIN 600 MG TAB PO STA (00:43)
--- NOTE | 2023-01-07 00:43 | History & Physical Report ---
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 PCU IVF Bowel rest NGT decompression if with subsequent emesis judicious narcotic use given SBO and history drug abuse General surgery consult Re: SBO Appropriate to hold Eliquis for history of PE DVT for now; IV heparin interim DT precautions, RHETT S protocol basal bolus insulin adjusted for n.p.o. status, ISS BG goal 110-140, carb count coverage, update hemoglobin A1c DVT prophylaxis IV heparin while Eliquis on hold Full code Text document was generated using [employer] voice recognition software. It may contain grammatical or spelling errors. Kindly contact undersigned for clarification of any documentation item in question. History of Present Illness Chief Complaint: Abdominal pain Primary Care Provider: Dhiraj Myers, History is obtained from the patient and records. 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 Monthly admissions since October 2022 for abdominal pain in the setting of alcohol abuse. Recent overnight confinement 01/04 to 01/05 for chronic pancreatitis. Patient refused provider recommendation to stay in the hospital until alcohol withdrawal period elapsed. Patient started drinking again following discharge from the hospital. Patient noted recurrence of pancreatitis pain in his abdomen going to his chest. Some nausea, no vomiting. No headache symptoms. Mushy nonbloody bowel movement as per patient. Patient found intoxicated outside a local gasoline station. Lowest SBP noted to be 90s at the ER. MEDICAL HISTORY: As above. SURGERIES: Appendectomy, cholecystectomy, vascular device placement, back surgery FAMILY HISTORY: There is a family history of mood disorder. Alcoholism, heart disease. 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 Allergies Allergy/AdvReac Type Severity Reaction Status Date / Time No Known Allergies Allergy Verified 01/06/23 23:11 Home Medications Medication Instructions Recorded Confirmed Type apixaban 5 mg tablet (Eliquis) 5 mg PO BID 08/17/22 01/06/23 History hydroxyzine pamoate 25 mg capsule 25 mg PO BID PRN Anxiety 10/20/22 01/06/23 History [id number] 1 cap PO TID #90 caps 12/21/22 01/06/23 Rx 24,000-76,000-120,000 unit capsule,delayed rel (Creon) amitriptyline 50 mg tablet 50 mg PO HS 01/03/23 01/06/23 History glipizide 5 mg tablet, extended 5 mg PO DAILY 01/03/23 01/06/23 History release 24 hr insulin glargine 100 unit/mL (3 15 unit subcut HS 01/03/23 01/06/23 History mL) subcutaneous pen (Lantus Solostar U-100 Insulin) pantoprazole 40 mg tablet,delayed 40 mg PO DAILY 01/03/23 01/06/23 History release folic acid 1 mg tablet 1 mg PO QAM #30 tabs 01/05/23 01/06/23 Rx gabapentin 600 mg tablet 600 mg PO Q12H 2 days #4 tabs 01/05/23 01/06/23 Rx multivitamin with folic acid 400 1 tab PO QAM #30 tabs 01/05/23 01/06/23 Rx mcg tablet (Daily-Chriss (with folic acid)) oxycodone 5 mg tablet 5 mg PO Q8H PRN pain (scale score 01/05/23 01/06/23 Rx 7-10) #9 tabs thiamine HCl (vitamin B1) 100 mg 100 mg PO QAM 15 days #15 tabs 01/05/23 01/06/23 Rx tablet Past Med/Surg History Medical History Abdominal pain Abdominal pain Abdominal pain, acute, epigastric Acute hyperglycemia Alcohol abuse (Unknown) Alcohol abuse Alcohol abuse Alcohol withdrawal Alcoholic ketosis Renae's esophagus (Unknown) "per EGD 11/23/09 " On 05/31/11 09:06 Martinez Jose wrote "per EGD 4/19/10 " Chest pain COVID-19 Depression Depression DM type 2 (diabetes mellitus, type 2) Encounter for alcohol abuse counseling and surveillance Encounter for pre-operative examination Encounter for tobacco use cessation counseling H/O acute pancreatitis "recurrent" History of substance abuse Hyperglycemia Intentional drug overdose Lumbar degenerative disc disease Mood disorder Mood disorder Nausea & vomiting Neuropathy Pancreatic duct stones Pancreatitis Panic disorder Pulmonary embolism on chronic apixaban Retrosternal chest pain Suicidal ideation Suicidal ideation Suicide attempt Surgical History H/O esophagogastroduodenoscopy "EGD 11/23/2009- mild gastritis, suspicious for gastroparesis, Z-line irregular EUS 02/04/2010- mild chronic pancreatitis, pronounced cholesterolosis of gallbladder, no biliary dilation or stones, probable gastroparesis EGD 10/31/2014- gastritis" S/P lumbar fusion L4-S1 2014 Family History Father Alcohol abuse Social History Smoking Status: Former smoker Tobacco Type: Cigarettes Second Hand Exposure: No; Do You Dip or Chew Tobacco: Yes; Hx Alcohol Use: Yes Alcohol type: beer Hx Substance Use: No Preferred Language: Welsh Communication Ability: Effective 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 Beliefs That Will Affect Care: None marital status: Current Living Situation: Parent Current Living Situation Comment: from home with mother How many Children do You have: 3 Feels Safe at Home: Yes Assistive Devices: None Review of Systems Review of Systems: As per HPI, all other systems reviewed and negative Physical Exam Physical Exam: GENERAL: Intoxicated, looks older than stated age, no respiratory distress SKIN: Normal color, warm HEENT: Alopecia, pink palpebral conjunctivae, no ptosis, dry buccal mucosa NECK : Supple, short neck, no tenderness CHEST : CTA, no tenderness HEART : Tachycardic, no obvious murmurs ABDOMEN: Some distention, epigastric tenderness EXTREMITIES : No LE swelling, no LE tenderness NEUROLOGIC : Coherent, no facial asymmetry, no other gross focality Results & Data Results & Data Vital Signs (Past 12 Hours) Vital Signs Pulse Pulse Resp BP BP Pulse Ox O2 Del Method 01/06/23 22:37 120 H 20 97/68 L 98 Room Air 01/06/23 22:00 120 H 18 92 01/06/23 22:00 98/74 L 01/06/23 21:30 118 H 16 95 01/06/23 21:30 104/79 01/06/23 21:13 118 H 01/06/23 21:10 121 H 18 133/89 96 Room Air 01/06/23 20:23 135 H 20 110/89 97 Room Air Laboratory Results Laboratory Results WBC 6.80 K/ul (4.8-10.8) 01/06/23 20:30 RBC 4.54 M/uL (4.70-6.10) L 01/06/23 20:30 Hgb 14.9 g/dl (14.0-18.0) 01/06/23 20:30 Hct 41.0 % (42.0-52.0) L 01/06/23 20:30 MCV 90.3 fL (80.0-100.0) 01/06/23 20:30 MCH 32.8 pg (25.0-34.0) 01/06/23 20:30 MCHC 36.3 g/dL (32.0-36.0) H 01/06/23 20:30 RDW Std Deviation 36.6 fL (36.4-46.3) 01/06/23 20:30 RDW Coeff of Gucci 11.2 % (11.5-14.5) L 01/06/23 20:30 Plt Count 251 K/uL (130-400) 01/06/23 20:30 MPV 9.5 fL (9.4-12.4) 01/06/23 20:30 Immature Gran % (Auto) 0.3 % 01/06/23 20:30 Neut % (Auto) 55.1 % 01/06/23 20:30 Lymph % (Auto) 30.0 % 01/06/23 20:30 Williamson % (Auto) 7.6 % 01/06/23 20:30 Eos % (Auto) 6.3 % 01/06/23 20:30 Baso % (Auto) 0.7 % 01/06/23 20:30 Neut # (Auto) 3.74 K/uL (1.40-6.50) 01/06/23 20:30 Lymph # (Auto) 2.04 K/uL (1.2-3.4) 01/06/23 20:30 Williamson # (Auto) 0.52 K/uL (0.11-0.59) 01/06/23 20:30 Eos # (Auto) 0.43 K/uL (0-0.50) 01/06/23 20:30 Baso # (Auto) 0.05 K/uL (0-0.2) 01/06/23 20:30 Immature Gran # (Auto) 0.02 K/uL (0.01-0.20) 01/06/23 20:30 VBG pH 7.33 (7.36-7.41) L 01/06/23 23:36 VBG pCO2 49 mmHg (38-50) 01/06/23 23:36 VBG pO2 37 mmHg 01/06/23 23:36 VBG HCO3 26 mmol/L 01/06/23 23:36 VBG O2 Saturation < 60.0 % 01/06/23 23:36 VBG Base Excess -0.7 mEq/L 01/06/23 23:36 Sodium 132 mmol/L (136-145) L 01/06/23 20:30 Potassium 3.8 mmol/L (3.5-5.1) 01/06/23 20:30 Chloride 98 mmol/L (98-107) 01/06/23 20:30 Carbon Dioxide 15 mmol/L (21-32) L 01/06/23 20:30 Anion Gap 19 (3-11) H 01/06/23 20:30 BUN 9 mg/dl (6-23) 01/06/23 20:30 Creatinine 0.92 mg/dl (0.6-1.4) 01/06/23 20:30 Est Cr Clr Drug Dosing 106.6 ml/min 01/06/23 20:30 Est GFR ( Amer) 112.8 ml/min 01/06/23 20:30 Est GFR (Non-Af Amer) 97.3 ml/min 01/06/23 20:30 BUN/Creatinine Ratio 9.8 (10-20) L 01/06/23 20:30 Glucose 358 mg/dl (70-99(Fasting)) H* 01/06/23 20:30 Calcium 9.9 mg/dl (8.6-10.3) 01/06/23 20:30 Total Bilirubin 0.6 mg/dl (0.2-1.0) 01/06/23 20:30 AST 32 U/L (13-39) 01/06/23 20:30 ALT 25 U/L (7-52) 01/06/23 20:30 Alkaline Phosphatase 63 U/L (34-104) 01/06/23 20:30 Troponin I High Sens 2.9 pg/ml (0-20) 01/06/23 20:30 Total Protein 7.4 gm/dl (6.0-8.3) 01/06/23 20:30 Albumin 3.9 gm/dl (3.4-5.0) 01/06/23 20:30 Globulin 3.5 gm/dl (2.5-4.0) 01/06/23 20:30 Albumin/Globulin Ratio 1.1 (0.9-2) 01/06/23 20:30 Lipase 9 U/L (11-82) L 01/06/23 20:30 Urine Color Yellow 01/06/23 21:12 Urine Appearance Clear (Clear) 01/06/23 21:12 Urine pH 5.0 (4.5-7.5) 01/06/23 21:12 Ur Specific Cal[place]oun 1.012 (1.000-1.030) 01/06/23 21:12 Urine Protein Negative (Negative) 01/06/23 21:12 Urine Glucose (UA) 3+ (Negative) H 01/06/23 21:12 Urine Ketones Trace (Negative) H 01/06/23 21:12 Urine Blood Negative (Negative) 01/06/23 21:12 Urine Nitrite Negative (Negative) 01/06/23 21:12 Urine Bilirubin Negative (Negative) 01/06/23 21:12 Urine Urobilinogen Negative (Negative) 01/06/23 21:12 Ur Leukocyte Esterase Negative (Negative) 01/06/23 21:12 Ethyl Alcohol mg/dL 300.9 mg/dl (<10.0) H 01/06/23 20:30 SARS-CoV-2, RNA, NAAT NEGATIVE (NEGATIVE) 01/06/23 23:36 Impressions Abdomen/Pelvis CT 01/06/23 21:08 Exam(s): CT ABDOMEN + PELVIS With Contrast IV Amt: 86ml optiray 320 EXAM: CT Abdomen and Pelvis With Intravenous Contrast CLINICAL HISTORY: Reason for exam: abd pain. TECHNIQUE: Axial computed tomography images of the abdomen and pelvis with intravenous contrast. CTDI is 25.3 mGy and DLP is 1504.56 mGy-cm. Automated exposure control was utilized for the study. A dose lowering technique was utilized adhering to the principles of ALARA. CONTRAST: Patient received 86ml optiray 320 of IV contrast COMPARISON: Dated 01/03/23 FINDINGS: Lung bases: Unremarkable. No mass. No consolidation. ABDOMEN: Liver: Unremarkable. No mass. Gallbladder and bile ducts: The patient is status post cholecystectomy. No ductal dilation. Pancreas: There is calcification of the pancreatic parenchyma compatible with chronic pancreatitis. No ductal dilation. Spleen: Unremarkable. No splenomegaly. Adrenals: Unremarkable. No mass. Kidneys and ureters: Unremarkable. No solid mass. No hydronephrosis. Stomach and bowel: There is been interval increase in fluid distention of multiple small bowel loops with a focal point of obstruction suggested in the right lower quadrant (image 58 series 4). No mucosal thickening. PELVIS: Appendix: No findings to suggest acute appendicitis. Bladder: The urinary bladder is quite distended. Reproductive: Unremarkable as visualized. ABDOMEN and PELVIS: Intraperitoneal space: Unremarkable. No free air. No significant fluid collection. Bones/joints: There are degenerative changes of the thoracolumbar spine. There are postsurgical changes of the lower lumbar spine. No acute fracture. No dislocation. Soft tissues: Unremarkable. Vasculature: Unremarkable. No abdominal aortic aneurysm. Lymph nodes: Unremarkable. No enlarged lymph nodes. IMPRESSION: Progressive distention of small bowel loops with a focal point of obstruction suggested in the right lower quadrant. No evidence for perforation. Electronically signed by: Jd Jo MD 01/06/23 23:[address] 01/06/23 21:08 Exam(s): CT HEAD Without Contrast EXAM: CT Head Without Intravenous Contrast CLINICAL HISTORY: Reason for exam: fall etoh. TECHNIQUE: Axial computed tomography images of the head/brain without intravenous contrast. CTDI is 37.61 mGy and DLP is 702.46 mGy-cm. Automated exposure control was utilized for the study. A dose lowering technique was utilized adhering to the principles of ALARA. COMPARISON: Dated 12/20/22 FINDINGS: Brain: Unremarkable. No hemorrhage. No significant white matter disease. No edema. Ventricles: There are calcifications of the choroid plexus and pineal gland. Bones/joints: Unremarkable. No acute fracture. Soft tissues: Unremarkable. Sinuses: There is moderate sinus mucosal thickening within the left maxillary sinus. There is polypoid disease versus retention cysts in the right maxillary sinus. Mastoid air cells: Unremarkable as visualized. No mastoid effusion. IMPRESSION: No acute findings in the head/brain. Electronically signed by: Jd Jo MD 01/06/23 23:34 PM (1) Hypotension Hypotension type: unspecified hypotension type Qualified Code(s): I95.9 - Hypotension, unspecified
[2023-01-07] MEDS ORDERED: PANTOprazole 40 MG in SYRINGE 0 ML IV STA (00:47)
[2023-01-07] MEDS ORDERED: Heparin IV Adult Wt-Based Standard *NO* Bolus Protocol IV STA (00:48)
[2023-01-07] MEDS ORDERED: KETOROLAC TROMETHAMINE 15 MG/ML VIAL IV STA (00:48)
[2023-01-07] MEDS ORDERED: GABAPENTIN 1200MG ALCOHOL WITHDRAWAL LOAD PO STA (00:50)
[2023-01-07] MEDS ORDERED: LORazepam 2 MG/1 ML VIAL IV PRN ×3 (00:50)
[2023-01-07] MEDS ORDERED: Ativan IV Alcohol Withdrawal--Active Protocol IV PRN (00:50)
[2023-01-07] MEDS ORDERED: ACETAMINOPHEN 325 MG TAB PO PRN (00:55)
[2023-01-07] MEDS ORDERED: MAGNESIUM SULFATE / D5W 1 GM/100 ML BAG IV STA (00:59)
[2023-01-07 01:39] LABS: Base Excess VBG -1.9 mEq/L; HCO3 VBG 26 mmol/L; Oxygen Saturation VBG < 60.0 %; PCO2 VBG 53 mmHg (38-50); PO2 VBG 32 mmHg; pH VBG 7.29 (7.36-7.41)
[2023-01-07 01:43] LABS: Partial Thromboplastin Ratio 0.8; Partial Thromboplastin Time 23.9 Seconds (21.0-31.0)
--- NOTE | 2023-01-07 01:50 | Surgery Consultation ---
Date of Consultation January 07, 2023 Assessment & Plan (1) SBO (small bowel obstruction): The patient is being admitted on the hospitalist service. The patient's chronic pancreatitis and additional medical problems will be managed by the primary service. From a surgical perspective concerning the possibility of small bowel obstruction we recommend the following: At the time of my interview with the patient he was resting comfortably in bed and he did not appear toxic. He was noted to have tachycardia but the patient has additional reasons to have this condition (pancreatitis, alcohol withdrawal, dehydration, hyperglycemia) Implement n.p.o. status. I have discussed with the patient the rationale for nothing by mouth and we will consider advancing patient's diet once he has improvement of his abdominal exam and improvement of his bowel function. When we do advance his diet we will begin with clear liquids to make sure this is tolerated before advancing further. Provide IV fluid for hydration Provide analgesics provide antiemetics Did discussed the modality of an NG tube with the patient. As the patient has not had any emesis in 2 days and his abdomen is not distended I feel we can hold off on this modality for the present time. I did discuss with the patient that if he has any worsening of his abdominal symptomatology or if any he has any emesis consideration will be have to be given to placing an NG tube and he did express his understanding Additional recommendations be forthcoming based on his clinical course as it unfolds History of Present Illness Reason for Consultation: Abdominal pain with concern for small bowel obstruction History of Present Illness This is a 47-year-old male who presented to the emergency department secondary to abdominal pain. The patient does have a history of chronic pancreatitis and was most recently admitted to the hospital for this condition from 01/03/2023 through 01/05/2023. During this admission the patient was encouraged to abstain from alcohol. It was noted that the patient does have a history of noncompliance with abstinence from alcohol. He presented to the emergency department today secondary to worsening abdominal pain. The patient does note that he has had abdominal pain for at least the last 8 to 9 months and has had increasing issues with constipation. He says that his bowel movements have turned from brown to being a yellow/randy colored in nature. He does note that his most recent bowel movement was 2 days ago but he continues to pass flatus. He notes that this concerned him so he presented to the emergency department. He did report emesis most recently 2 days ago has not had any since then. He denies any fevers, shakes, or chills. He has had prior abdominal surgeries as he has had a cholecystectomy and an appendectomy. The patient as noted does have a history of chronic pancreatitis and he does not abstain from alcohol. He says yesterday he drank 6-7 beers. He does note that he drinks at least 6-12 beers on most days. He does not smoke but he uses smokeless tobacco. Concerning the patient's pain he notes that sometimes radiates through to his back. He does note that it is palliated with medications administered in the emergency department but otherwise does not report any palliative factors. He notes that sometimes his pain is worse when he tries to have a bowel movement. Since arrival to the emergency department the patient has had labs and imaging which independent reviewed. CT scan of the head showed no acute intracranial findings. Patient did have a chest x-ray showed no evidence of pneumonia and there were no pleural effusions. The patient also had a CT scan of the abdomen pelvis that showed patient had some distention of small bowel loops along with a distended stomach. There is a focal point suggesting obstruction in the right lower quadrant with no evidence of perforation. There is no evidence of free air in the abdomen. Labs include a CBC her white blood cell count and hemoglobin were normal. The platelet count was also normal and the hematocrit was slightly low at 41.0. Chemistry profile showed sodium was 132 with a normal potassium. BUN and creatinine were both normal. The patient did have a VBG with a pH of 7.29. Patient had an elevated glucose level at 358. There is no elevation of patient's LFTs. His lipase was also not elevated. Urinalysis was not indicative of infection. An alcohol level was markedly elevated at 300.9. A COVID test was negative. At the time of my interview the patient was resting comfortably in bed and he was in no distress. Allergies Allergy/AdvReac Type Severity Reaction Status Date / Time No Known Allergies Allergy Verified 01/06/23 23:11 Home Medications Medication Instructions Recorded Confirmed Type apixaban 5 mg tablet (Eliquis) 5 mg PO BID 08/17/22 01/06/23 History hydroxyzine pamoate 25 mg capsule 25 mg PO BID PRN Anxiety 10/20/22 01/06/23 History axlazo-ypnnxcbp-[id number] 1 cap PO TID #90 caps 12/21/22 01/06/23 Rx 24,000-76,000-120,000 unit capsule,delayed rel (Creon) amitriptyline 50 mg tablet 50 mg PO HS 01/03/23 01/06/23 History glipizide 5 mg tablet, extended 5 mg PO DAILY 01/03/23 01/06/23 History release 24 hr insulin glargine 100 unit/mL (3 15 unit subcut HS 01/03/23 01/06/23 History mL) subcutaneous pen (Lantus Solostar U-100 Insulin) pantoprazole 40 mg tablet,delayed 40 mg PO DAILY 01/03/23 01/06/23 History release folic acid 1 mg tablet 1 mg PO QAM #30 tabs 01/05/23 01/06/23 Rx gabapentin 600 mg tablet 600 mg PO Q12H 2 days #4 tabs 01/05/23 01/06/23 Rx multivitamin with folic acid 400 1 tab PO QAM #30 tabs 01/05/23 01/06/23 Rx mcg tablet (Daily-Chriss (with folic acid)) oxycodone 5 mg tablet 5 mg PO Q8H PRN pain (scale score 01/05/23 01/06/23 Rx 7-10) #9 tabs thiamine HCl (vitamin B1) 100 mg 100 mg PO QAM 15 days #15 tabs 01/05/23 01/06/23 Rx tablet Patient History Medical History Abdominal pain Abdominal pain Abdominal pain, acute, epigastric Acute hyperglycemia Alcohol abuse (Unknown) Alcohol abuse Alcohol abuse Alcohol withdrawal Alcoholic ketosis Renae's esophagus (Unknown) "per EGD 11/23/09 " On 05/31/11 09:06 Martinez Jose wrote "per EGD 11/23/09 " Chest pain COVID-19 Depression Depression DM type 2 (diabetes mellitus, type 2) Encounter for alcohol abuse counseling and surveillance Encounter for pre-operative examination Encounter for tobacco use cessation counseling H/O acute pancreatitis "recurrent" History of substance abuse Hyperglycemia Intentional drug overdose Lumbar degenerative disc disease Mood disorder Mood disorder Nausea & vomiting Neuropathy Pancreatic duct stones Pancreatitis Panic disorder Pulmonary embolism on chronic apixaban Retrosternal chest pain Suicidal ideation Suicidal ideation Suicide attempt Surgical History H/O esophagogastroduodenoscopy "EGD 11/23/2009- mild gastritis, suspicious for gastroparesis, Z-line irregular EUS 02/04/2010- mild chronic pancreatitis, pronounced cholesterolosis of gallbladder, no biliary dilation or stones, probable gastroparesis EGD 10/31/2014- gastritis" S/P lumbar fusion L4-S1 2014 Family History Father Alcohol abuse Social History Smoking Status: Former smoker Tobacco Type: Cigarettes Second Hand Exposure: No; Do You Dip or Chew Tobacco: Yes; Hx Alcohol Use: Yes Alcohol type: beer Hx Substance Use: No Preferred Language: Japanese Communication Ability: Effective 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 Beliefs That Will Affect Care: None marital status: Current Living Situation: Parent Current Living Situation Comment: from home with mother How many Children do You have: 3 Feels Safe at Home: Yes Assistive Devices: None Review of Systems Constitutional: no fever and no chills Eyes: no eye pain Ear, Nose, Mouth, Throat: no ear pain Respiratory: no cough and no dyspnea Cardiovascular: no chest pain Gastrointestinal: as per Subjective / HPI Genitourinary: no dysuria Musculoskeletal: + back pain (Radiating from abdomen) Integumentary: no rash Neurologic: no localized weakness Physical Exam Constitutional: WD/WN, vitals as above Eyes: + anicteric sclerae ENMT: Ears: no hearing impairment and no external ear abnormality Mouth: no oropharynx abnormality Sublingual jaundice is absent Neck: trachea midline Respiratory: normal respiratory effort, lungs clear to auscultation Cardiovascular: Rate/Rhythm: regular rate and regular rhythm Vessels: dorsalis pedis pulses present and radial pulses present Gastrointestinal (Abdomen): Abdomen is soft, nonrigid, nondistended. There is no tympany to percussion. The patient did have pain with palpation in a generalized fashion throughout his abdomen but this appeared to be most pronounced in the epigastric area. There is no rebound tenderness. There is no evidence of Fields Alba or Arnoldo sign. Musculoskeletal: No calf tenderness. There are no nonhealing wounds on patient's feet bilaterally Skin: no rashes and no jaundice Neurologic: moves all extremities Psychiatric: A+Ox3, euthymic affect Results & Data Vital Signs (Past 12 Hours) Vital Signs Pulse Pulse Resp BP BP Pulse Ox O2 Del Method 01/07/23 01:07 120 H 01/07/23 00:30 119 H 14 93/69 L 98 01/07/23 00:00 114 H 14 96/75 L 95 01/06/23 23:00 120 H 16 112/84 99 01/06/23 22:38 16 97/68 L 98 01/06/23 22:37 120 H 20 97/68 L 98 Room Air 01/06/23 22:00 120 H 18 92 01/06/23 22:00 98/74 L 01/06/23 21:30 118 H 16 95 01/06/23 21:30 104/79 01/06/23 21:13 118 H 01/06/23 21:10 121 H 18 133/89 96 Room Air 01/06/23 20:23 135 H 20 110/89 97 Room Air PG Care Time/CCT Total # of Minutes Spent Total Time Spent with Patient: Total time spent is greater than 50% in coordination of care (as documented) at patient's floor/unit and/or counseling patient: Coding Level of Care Code 21703 IN/OBS CONSULT LVL 5,80M Diagnoses SBO (small bowel obstruction) K56.609
[2023-01-07] MEDS: oxyCODONE HCL IR 5 MG TAB (IMMEDIATE RELEASE) PO PRN ×4 (02:03→21:22)
[2023-01-07] MEDS: HEPARIN SODIUM/DEXTROSE 25,000 UNITS/500 ML BAG IV SCH ×2 (02:03→18:59)
[2023-01-07] MEDS ORDERED: GLUCOSE 10 TAB/TUBE PO PRN (02:42)
[2023-01-07] MEDS ORDERED: GLUCAGON FOR INJ 1 MG VIAL SQ PRN (02:42)
[2023-01-07] MEDS ORDERED: hydrOXYzine HCl 25 MG TAB PO PRN (02:42)
[2023-01-07] MEDS ORDERED: DEXTROSE 50% 50 ML SYRINGE IV PRN (02:42)
[2023-01-07] MEDS ORDERED: CARBOHYDRATES FOR HYPOGLYCEMIA PO PRN (02:42)
[2023-01-07] MEDS ORDERED: GLUCOSE 40% GEL 15 GM TUBE PO PRN (02:42)
[2023-01-07] MEDS: INSULIN ASPART PER UNIT CHARGE SC SCH ×4 (03:00→17:03)
[2023-01-07] MEDS ORDERED: LACTATED RINGER'S 1,000 ML IV ONE ×2 (03:00→05:00)
[2023-01-07] MEDS: POTASSIUM CHLORIDE / WTR 10 MEQ/100 ML PLCT IV SCH ×2 (03:29→04:33)
[2023-01-07 04:10] LABS: Base Excess VBG -3.7 mEq/L; HCO3 VBG 22 mmol/L; Oxygen Saturation VBG 92.5 %; PCO2 VBG 42 mmHg (38-50); PO2 VBG 68 mmHg; pH VBG 7.33 (7.36-7.41)
[2023-01-07 04:30] LABS: Basophils # (auto) 0.03 K/uL (0-0.2); Basophils % (auto) 0.5 %; Eosinophils # (auto) 0.31 K/uL (0-0.50); Eosinophils % (auto) 5.3 %; Hematocrit (blood only) 37.1 % (42.0-52.0); Hemoglobin 13.3 g/dl (14.0-18.0); Immature Granulocytes # (auto) 0.01 K/uL (0.01-0.20); Immature Granulocytes % (auto) 0.2 %; Lymphocytes % (auto) 27.4 %; Mean Corpuscular Hemoglobin 32.8 pg (25.0-34.0); Mean Corpuscular Hgb Conc 35.8 g/dL (32.0-36.0); Mean Corpuscular Volume 91.6 fL (80.0-100.0); Mean Platelet Volume 9.3 fL (9.4-12.4); Monocytes # (auto) 0.62 K/uL (0.11-0.59); Monocytes % (auto) 10.6 %; Neutrophils # (auto) 3.28 K/uL (1.40-6.50); Platelet Count 190 K/uL (130-400); RDW Coefficient of Variation 11.2 % (11.5-14.5); RDW Standard Deviation 37.9 fL (36.4-46.3); Red Blood Count 4.05 M/uL (4.70-6.10); White Blood Count 5.85 K/ul (4.8-10.8)
[2023-01-07 04:31] LABS: BUN Creatinine Ratio 8.3 (10-20); Calcium 8.6 mg/dl (8.6-10.3); Creatinine Clr Calc Pharmacy 136.2 ml/min; Est GFR (Non-African American) 109.5 ml/min; Potassium 3.7 mmol/L (3.5-5.1)
[2023-01-07] MEDS: LACTATED RINGER'S 1,000 ML IV SCH ×4 (05:39→21:21)
--- NOTE | 2023-01-07 06:18 | Surgery Progress Note ---
Date of Service January 07, 2023 Assessment & Plan (1) SBO (small bowel obstruction): Plan: The patient has been admitted on the hospitalist service. Management of the patient's chronic medical problems such as chronic pancreatitis and alcohol use/abuse as directed by primary service Concerning possibility of small bowel obstruction, from a surgical perspective we recommend proceeding as follows: Continue n.p.o. status Continue IV fluids for hydration Continue analgesics Continue antiemetics as needed The patient has had improvement of his clinical exam. His abdomen remains nondistended and he has not had any emesis in nearly 2 days. Therefore I feel we can continue conservative management and not place an NG tube at this time. Patient was noted to have an elevated lactic acid level of 3.6 at time of arrival and this was checked approximately 4 hours later and has improved to 3.0. Patient's tachycardia has also improved and he continues to appear nontoxic. As above. Already feeling better than admission. We will keep n.p.o. We will check KUB tomorrow to reevaluate potential obstruction Admission and Anticipated Discharge Date Admission Date: January 07, 2023 Subjective Patient was sleeping at the time of my visit this morning but easily arousable. He notes that he has some continued abdominal pain but this is improved since arrival to the floor. Since arrival to the floor patient says that he has been been passing flatus but is not had a bowel movement. He denies any nausea or vomiting. He denies any fevers, shakes, or chills. I discussed with the engineering mgr RN she did not note any acute issues since arrival to the [facility]. Physical Exam Gastrointestinal (Abdomen): Bowel sounds are present but hypoactive. Abdomen is soft and nonrigid. It is nondistended. Patient did have pain with palpation throughout his abdomen but this appeared to be greatest in the epigastric area and appeared slightly improved from what was noted at the time of my visit in the emergency department. Results & Data Vital Signs (Past 12 Hours) Vital Signs Temp Pulse Pulse Resp BP BP Pulse Ox 01/07/23 02:45 114 H 01/07/23 04:37 109 H 103/68 01/07/23 02:30 36.6 C 117 H 20 119/74 99 01/07/23 02:30 36.6 C 117 H 20 119/74 99 01/07/23 02:00 118 H 15 100/79 96 01/07/23 01:30 122 H 17 99/81 L 99 01/07/23 01:00 119 H 18 111/56 L 95 01/07/23 01:07 120 H 01/07/23 00:30 119 H 14 93/69 L 98 01/07/23 00:00 114 H 14 96/75 L 95 01/06/23 23:00 120 H 16 112/84 99 01/06/23 22:38 16 97/68 L 98 01/06/23 22:37 120 H 20 97/68 L 98 01/06/23 22:00 120 H 18 92 01/06/23 22:00 98/74 L 01/06/23 21:30 118 H 16 95 01/06/23 21:30 104/79 01/06/23 21:13 118 H 01/06/23 21:10 121 H 18 133/89 96 01/06/23 20:23 135 H 20 110/89 97 O2 Del Method 01/07/23 02:45 01/07/23 04:37 01/07/23 02:30 Room Air 01/07/23 02:30 Room Air 01/07/23 02:00 01/07/23 01:30 01/07/23 01:00 01/07/23 01:07 01/07/23 00:30 01/07/23 00:00 01/06/23 23:00 01/06/23 22:38 01/06/23 22:37 Room Air 01/06/23 22:00 01/06/23 22:00 01/06/23 21:30 01/06/23 21:30 01/06/23 21:13 01/06/23 21:10 Room Air 01/06/23 20:23 Room Air PG Care Time/CCT Total # of Minutes Spent Total Time Spent with Patient: Total time spent is greater than 50% in coordination of care (as documented) at patient's floor/unit and/or counseling patient: Coding Level of Care Code 76488 SUB INP/OBS CARE 2/35MIN Diagnoses SBO (small bowel obstruction) K56.609
--- NOTE | 2023-01-07 06:40 | Electrocardiogram Report ---
Test Reason : Blood Pressure : / mmHG Vent. Rate : 132 BPM Atrial Rate : 132 BPM P-R Int : 142 ms QRS Dur : 068 ms QT Int : 296 ms P-R-T Axes : 044 033 052 degrees QTc Int : 438 ms Sinus tachycardia Poor R wave progression, consider anterior MA vs. lead placement vs. LVH Abnormal ECG When compared with ECG of 03-JAN-2023 01:19, No significant change was found Confirmed by Danilo Grimes ([id number]) on 01/07/2023 6:40:12 AM Referred By: REFERRED SELF Confirmed By:Jere Grimes
[2023-01-07] MEDS ORDERED: INSULIN ASPART PER UNIT CHARGE SC SCH (07:30)
[2023-01-07] MEDS: MULTIVITAMIN TAB PO SCH (07:51)
[2023-01-07] MEDS: FOLIC ACID 1 MG TAB PO SCH (07:51)
[2023-01-07] MEDS: GABAPENTIN 600 MG TAB PO SCH ×3 (07:52→21:21)
[2023-01-07] MEDS: PANTOprazole 40 MG TAB PO SCH (07:52)
[2023-01-07] MEDS: THIAMINE HCL 100 MG TAB PO SCH (07:52)
--- NOTE | 2023-01-07 08:00 | XRay Report ---
XR chest 1V portable HISTORY: 47 years-old Male fall acute chest trauma status post fall COMPARISON: 12/20/2022 TECHNIQUE: AP view of the chest FINDINGS: Cardiomediastinal and hilar silhouettes are within normal limits. There is no pneumothorax, pleural e ffusion, airspace consolidation or overt pulmonary edema. Cholecystectomy. Degenerative changes of th e shoulders and spine. IMPRESSION: No acute process. ACT 112: Negative or not required by law. The above report was generated using voice recognition software. It may contain grammatical, syntax o r spelling errors. Electronically signed by: Timur Álvarez M.D. 01/07/2023 7:59 AM
[2023-01-07] MEDS ORDERED: LANTUS PER UNIT CHARGE SQ SCH ×2 (09:00→21:00)
[2023-01-07 09:02] LABS: Partial Thromboplastin Ratio 1.4
[2023-01-07 09:26] LABS: Partial Thromboplastin Time 40.5 Seconds (21.0-31.0)
[2023-01-07] MEDS: ACETAMINOPHEN 1,000 MG/100 ML VIAL IV PRN (10:08)
--- NOTE | 2023-01-07 14:25 | Hospitalist Progress Note ---
Date of Service January 07, 2023 Assessment & Plan (1) Hypotension: Plan: Small bowel obstruction H/O appendectomy, cholecystectomy H/O chronic pancreatitis Lactic acidosis --CT ABD:Progressive distention of small bowel loops with a focal point of obstruction suggested in the right lower quadrant. No evidence for perforation. 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 GERD/Renae's esophagus Continue PPI H/O ADD/mood disorder Continue home medications H/O PE/recurrent DVT Hold Eliquis for now Continue IV heparin H/O Chronic pain H/O Narcotic abuse Avoid IV narcotics as able DVT Px: IV Heparin Code Status Full Code Admission and Anticipated Discharge Date Admission Date: January 07, 2023 Subjective Patient is seen and examined at bedside States having abdominal pain but pleasantly lying in bed during my encounter Was nauseous earlier today but resolved later Denies any chest pain, dyspnea, dizziness No other complaints Review of Systems Review of Systems: All systems reviewed & are unremarkable except as noted in Subjective Physical Exam Physical Exam: Physical Exam: Vitals signs as noted above General Appearance:Moderately built and nourished, no apparent distress Head: normocephalic, Atraumatic Eyes: normal inspection, EOMI Neck: supple, Trachea midline Respiratory/Chest: Normal breath sounds, CTA, No accessory muscle use Cardiovascular: S1, S2, No murmur Abdomen/GI:Soft, mild epigastric tender, hypoactive bowel sounds Extremities/Musculoskeletal:normal inspection, no edema Neurologic/Psych:AAOX3, grossly no focal neurological deficits Skin: normal color, warm Results & Data Results & Data Vital Signs (Past 12 Hours) Vital Signs Temp Pulse Pulse Resp BP Pulse Ox O2 Del Method 01/07/23 12:03 36.5 C 85 18 110/72 98 Room Air 01/07/23 12:00 84 01/07/23 08:00 114 H 01/07/23 07:38 36.3 C L 97 H 20 101/69 98 Room Air 01/07/23 02:45 114 H 01/07/23 04:37 109 H 103/68 01/07/23 02:30 36.6 C 117 H 20 119/74 99 Room Air 01/07/23 02:30 36.6 C 117 H 20 119/74 99 Room Air Laboratory Results Short CBC 01/06/23 01/07/23 Range/Units 20:30 04:01 WBC 6.80 5.85 (4.8-10.8) K/ul Hgb 14.9 13.3 L (14.0-18.0) g/dl Hct 41.0 L 37.1 L (42.0-52.0) % Plt Count 251 190 (130-400) K/uL BMP 01/06/23 01/06/23 01/07/23 20:30 21:27 04:01 Sodium 132 L Cancelled 137 Potassium 3.8 Cancelled 3.7 Chloride 98 Cancelled 107 Carbon Dioxide 15 L Cancelled 21 BUN 9 Cancelled 6 Creatinine 0.92 Cancelled 0.72 Glucose 358 H* Cancelled 187 H Calcium 9.9 Cancelled 8.6 Liver Function 01/06/23 Range/Units 20:30 Total Bilirubin 0.6 (0.2-1.0) mg/dl AST 32 (13-39) U/L ALT 25 (7-52) U/L Alkaline Phosphatase 63 (34-104) U/L Albumin 3.9 (3.4-5.0) gm/dl Urine 01/06/23 Range/Units 21:12 Urine Color Yellow Urine Appearance Clear (Clear) Urine pH 5.0 (4.5-7.5) Ur Specific [place] 1.012 (1.000-1.030) Urine Protein Negative (Negative) Urine Glucose (UA) 3+ H (Negative) (1) Hypotension Hypotension type: unspecified hypotension type Qualified Code(s): I95.9 - Hypotension, unspecified
[2023-01-07] MEDS: AMITRIPTYLINE HCL 50 MG TAB PO SCH (21:21)
[2023-01-07] MEDS: PROMETHAZINE HCL 12.5 MG in SODIUM CHLORIDE 0.9% 50 ML IV PRN (21:22)
[2023-01-07] MEDS: LANTUS PER UNIT CHARGE SQ SCH (21:30)
[2023-01-08] MEDS: INSULIN ASPART PER UNIT CHARGE SC SCH ×4 (00:25→18:11)
[2023-01-08] MEDS: oxyCODONE HCL IR 5 MG TAB (IMMEDIATE RELEASE) PO PRN ×3 (01:24→15:11)
[2023-01-08] MEDS: GABAPENTIN 600 MG TAB PO SCH ×3 (05:20→15:37)
[2023-01-08] MEDS: LACTATED RINGER'S 1,000 ML IV SCH ×3 (05:20→19:50)
[2023-01-08 05:42] LABS: BUN Creatinine Ratio 6.9 (10-20); Calcium 8.9 mg/dl (8.6-10.3); Creatinine Clr Calc Pharmacy 136.2 ml/min; Est GFR (Non-African American) 109.5 ml/min; Magnesium 1.6 mg/dl (1.7-2.4); Potassium 3.8 mmol/L (3.5-5.1)
[2023-01-08 05:52] LABS: Hemoglobin 12.5 g/dl (14.0-18.0); Mean Corpuscular Hemoglobin 32.6 pg (25.0-34.0); Mean Corpuscular Hgb Conc 34.7 g/dL (32.0-36.0); Mean Corpuscular Volume 93.8 fL (80.0-100.0); Mean Platelet Volume 9.4 fL (9.4-12.4); Platelet Count 177 K/uL (130-400); RDW Coefficient of Variation 11.4 % (11.5-14.5); RDW Standard Deviation 38.8 fL (36.4-46.3); Red Blood Count 3.84 M/uL (4.70-6.10)
--- NOTE | 2023-01-08 06:05 | Surgery Progress Note ---
Date of Service January 08, 2023 Assessment & Plan (1) SBO (small bowel obstruction): Plan: The patient has been admitted on the hospitalist service. From a surgical perspective concerning small bowel obstruction we recommend proceeding as follows: At the present time the patient does not appear toxic. He remains normotensive and his tachycardia that was noted at time of admission has improved. Although the patient may have an element of small bowel obstruction I suspect his chronic pancreatitis is contributing to his abdominal pain as well. Continue n.p.o. status. Would not advance diet until patient has improvement of abdominal pain and improvement of bowel function Continue IV fluid for hydration Continue analgesics Continue antiemetics Check a.m. labs when available KUB has been ordered for this morning which is pending As noted previously the modality of NG tube has been discussed with the patient. Although the patient has had some nausea he denies having any emesis and his abdomen is nondistended. We will see what patient's KUB looks like as well as monitor him clinically. NG tube may have to be reconsidered if he does have some clinical deterioration or if there are findings on his KUB that would suggest this modality would be helpful. Management of patient's medical problems by the primary service Additional recommendations will be based on his clinical course. As above. Continue to have abdominal pain epigastric in nature. Awaiting this morning's KUB. He does have a history of gastritis and potentially could have a peptic ulcer as well. Certainly could be his chronic pancreatitis. We a long discussion regarding the need to stop alcohol altogether. I will give him some Dilaudid for pain as I do believe he is in pain. He does not have a history of narcotic abuse according to him. If KUB shows improvement of his ileus/partial small bowel obstruction I may consult gastroenterology. He is scheduled for an upper endoscopy in 2 months and we may want to do it while he is here in the hospital. I am also going to add Carafate to the regimen. Admission and Anticipated Discharge Date Admission Date: January 07, 2023 Subjective Patient is currently resting comfortably in bed. Patient does note that throughout the night he did have some nausea without vomiting and notes that he has abdominal pain which is greatest in the epigastric area as well as the left upper quadrant. He denies passing any flatus last night and has not had any bowel movements. He denies any shortness of breath. He denies any fevers. Physical Exam Gastrointestinal (Abdomen): Abdomen is soft and nondistended. The patient does have bowel sounds that are present. The patient does have pain with palpation in his abdomen which is greatest in the epigastric area and left upper quadrant. No rebound tenderness noted. Results & Data Vital Signs (Past 12 Hours) Vital Signs Temp Pulse Pulse Resp BP Pulse Ox O2 Del Method 01/08/23 04:00 36.6 C 69 20 126/85 99 Room Air 01/07/23 23:00 92 H 01/08/23 00:24 36.6 C 95 H 20 120/74 97 Room Air 01/07/23 19:25 Room Air 01/07/23 19:31 36.6 C 85 18 117/77 99 Room Air PG Care Time/CCT Total # of Minutes Spent Total Time Spent with Patient: Total time spent is greater than 50% in coordination of care (as documented) at patient's floor/unit and/or counseling patient: Coding Level of Care Code 18564 SUB INP/OBS CARE 2/35MIN Diagnoses SBO (small bowel obstruction) K56.609
[2023-01-08 06:16] LABS: Partial Thromboplastin Time 56.5 Seconds (21.0-31.0)
[2023-01-08] MEDS: PROMETHAZINE HCL 12.5 MG in SODIUM CHLORIDE 0.9% 50 ML IV PRN ×2 (08:57→18:48)
[2023-01-08] MEDS: FOLIC ACID 1 MG TAB PO SCH (08:58)
[2023-01-08] MEDS: PANTOprazole 40 MG TAB PO SCH (08:59)
[2023-01-08] MEDS: MULTIVITAMIN TAB PO SCH (08:59)
[2023-01-08] MEDS: THIAMINE HCL 100 MG TAB PO SCH (08:59)
[2023-01-08] MEDS: ACETAMINOPHEN 1,000 MG/100 ML VIAL IV PRN (09:04)
[2023-01-08] MEDS ORDERED: HYDROmorphone INJ 1 MG/ML SYRINGE IV PRN ×2 (09:31→11:38)
[2023-01-08] MEDS ORDERED: MAGNESIUM SULFATE / D5W 1 GM/100 ML BAG IV ONE (09:35)
[2023-01-08] MEDS: HEPARIN SODIUM/DEXTROSE 25,000 UNITS/500 ML BAG IV SCH (10:12)
--- NOTE | 2023-01-08 10:19 | XRay Report ---
KUB HISTORY: Acute generalized abdominal pain with small bowel obstruction sbo COMPARISON: CT 01/06/2023 FINDINGS: Persistent small bowel obstruction with dilated loops measuring up to 3.8 cm. Cholecystecto my. Vascular calcifications of the pelvis. No renal calculi. No ureteral calculi. No pneumoperitoneu m or pneumatosis. Posterior interbody gayathri and screw fusion hardware with discectomy of the lower lumb ar spine. No fracture. IMPRESSION: Persistent small bowel obstruction. Continued follow-up recommended. ACT 112: Negative or not required by law. The above report was generated using voice recognition software. It may contain grammatical, syntax o r spelling errors. Electronically signed by: Timur Álvarez M.D. 01/08/2023 10:17 AM
[2023-01-08] MEDS: SUCRALFATE 1 GM/10 ML UDC PO SCH ×3 (13:25→21:28)
--- NOTE | 2023-01-08 15:36 | Hospitalist Progress Note ---
Date of Service January 08, 2023 Assessment & Plan (1) Hypotension: Plan: Small bowel obstruction H/O appendectomy, cholecystectomy H/O chronic pancreatitis Lactic acidosis --CT ABD:Progressive distention of small bowel loops with a focal point of obstruction suggested in the right lower quadrant. No evidence for perforation. 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 GERD/Renae's esophagus Continue PPI H/O ADD/mood disorder Continue home medications H/O PE/recurrent DVT Hold Eliquis for now Continue IV heparin H/O Chronic pain H/O Narcotic abuse Avoid IV narcotics as able DVT Px: IV Heparin Code Status Full Code Admission and Anticipated Discharge Date Admission Date: January 07, 2023 Subjective Patient is seen and examined at bedside No flatus, bowel movement today KUB showed persistent SBO Abdominal pain is controlled with medications Nauseous earlier today but no vomiting Denies any chest pain, dyspnea, dizziness Review of Systems Review of Systems: All systems reviewed & are unremarkable except as noted in Subjective Physical Exam Physical Exam: Physical Exam: Vitals signs as noted above General Appearance:Moderately built and nourished, no apparent distress Head: normocephalic, Atraumatic Eyes: normal inspection, EOMI Neck: supple, Trachea midline Respiratory/Chest: Normal breath sounds, CTA, No accessory muscle use Cardiovascular: S1, S2, No murmur Abdomen/GI:Soft, mild epigastric tender, Bowel sounds present Extremities/Musculoskeletal:normal inspection, no edema Neurologic/Psych:AAOX3, grossly no focal neurological deficits Skin: normal color, warm Results & Data Results & Data Vital Signs (Past 12 Hours) Vital Signs Temp Pulse Pulse Pulse Resp BP Pulse Ox 01/08/23 12:01 36.7 C 77 18 112/75 100 01/08/23 09:09 01/08/23 08:00 78 01/08/23 07:46 36.4 C L 82 18 114/73 98 01/08/23 04:00 36.6 C 69 20 126/85 99 O2 Del Method 01/08/23 12:01 Room Air 01/08/23 09:09 Room Air 01/08/23 08:00 01/08/23 07:46 Room Air 01/08/23 04:00 Room Air Laboratory Results Short CBC 01/08/23 Range/Units 05:05 WBC 4.20 L (4.8-10.8) K/ul Hgb 12.5 L (14.0-18.0) g/dl Hct 36.0 L (42.0-52.0) % Plt Count 177 (130-400) K/uL BMP 01/08/23 05:05 Sodium 139 Potassium 3.8 Chloride 107 Carbon Dioxide 29 BUN 5 L Creatinine 0.72 Glucose 171 H Calcium 8.9 (1) Hypotension Hypotension type: unspecified hypotension type Qualified Code(s): I95.9 - Hypotension, unspecified
[2023-01-08] MEDS: HYDROmorphone INJ 0.5 MG/0.5 ML SYR IV PRN (19:50)
[2023-01-08] MEDS: AMITRIPTYLINE HCL 50 MG TAB PO SCH (19:51)
[2023-01-08] MEDS: LANTUS PER UNIT CHARGE SQ SCH (21:28)
[2023-01-09] MEDS: INSULIN ASPART PER UNIT CHARGE SC SCH ×4 (00:04→17:59)
[2023-01-09] MEDS: oxyCODONE HCL IR 5 MG TAB (IMMEDIATE RELEASE) PO PRN ×2 (00:04→12:11)
[2023-01-09] MEDS: GABAPENTIN 600 MG TAB PO SCH ×2 (02:24→15:42)
[2023-01-09] MEDS: HYDROmorphone INJ 0.5 MG/0.5 ML SYR IV PRN ×4 (02:24→21:18)
[2023-01-09] MEDS: HEPARIN SODIUM/DEXTROSE 25,000 UNITS/500 ML BAG IV SCH ×2 (02:25→18:35)
[2023-01-09] MEDS: LACTATED RINGER'S 1,000 ML IV SCH ×3 (02:32→19:44)
[2023-01-09] MEDS: PROMETHAZINE HCL 12.5 MG in SODIUM CHLORIDE 0.9% 50 ML IV PRN ×2 (03:19→09:34)
[2023-01-09 05:13] LABS: Hematocrit (blood only) 35.9 % (42.0-52.0); Hemoglobin 13.1 g/dl (14.0-18.0); Mean Corpuscular Hemoglobin 33.1 pg (25.0-34.0); Mean Corpuscular Hgb Conc 36.5 g/dL (32.0-36.0); Mean Corpuscular Volume 90.7 fL (80.0-100.0); Platelet Count 122 K/uL (130-400); RDW Coefficient of Variation 10.9 % (11.5-14.5); RDW Standard Deviation 36.5 fL (36.4-46.3); Red Blood Count 3.96 M/uL (4.70-6.10); White Blood Count 3.86 K/ul (4.8-10.8)
[2023-01-09 05:30] LABS: Calcium 8.9 mg/dl (8.6-10.3); Magnesium 1.8 mg/dl (1.7-2.4); Potassium 3.5 mmol/L (3.5-5.1)
[2023-01-09 05:35] LABS: Creatinine Clr Calc Pharmacy 163.5 ml/min; Est GFR (African American) 136.8 ml/min; Est GFR (Non-African American) 118.1 ml/min
[2023-01-09 06:04] LABS: Partial Thromboplastin Ratio 1.6
[2023-01-09 06:08] LABS: Partial Thromboplastin Time 45.1 Seconds (21.0-31.0)
[2023-01-09] MEDS: MULTIVITAMIN TAB PO SCH (09:10)
[2023-01-09] MEDS: FOLIC ACID 1 MG TAB PO SCH (09:10)
[2023-01-09] MEDS: THIAMINE HCL 100 MG TAB PO SCH (09:10)
[2023-01-09] MEDS: SUCRALFATE 1 GM/10 ML UDC PO SCH ×4 (09:11→21:19)
[2023-01-09] MEDS: PANTOprazole 40 MG TAB PO SCH (09:11)
--- NOTE | 2023-01-09 09:40 | Surgery Progress Note ---
Date of Service January 09, 2023 Assessment & Plan (1) SBO (small bowel obstruction): Plan: KUB not officially read to me does not look much different. We will order small bowel follow-through today. (2) Alcohol abuse: (3) Epigastric abdominal pain: (4) Acute alcoholic pancreatitis: Admission and Anticipated Discharge Date Admission Date: January 07, 2023 Subjective Patient seen. Not really feeling any different than yesterday. Continues to have pain and no bowel function. Physical Exam Physical Exam: Alert and oriented. No acute distress Abdomen is soft with mild distention. Mild diffuse tenderness. No peritoneal signs. Results & Data Vital Signs (Past 12 Hours) Vital Signs Temp Pulse Pulse Resp BP Pulse Ox O2 Del Method 01/09/23 08:26 36.5 C 72 18 119/78 99 Room Air 01/09/23 03:05 36.4 C L 86 16 115/76 99 Room Air 01/08/23 23:00 96 H 01/09/23 00:21 36.7 C 83 16 104/70 98 Room Air PG Care Time/CCT Total # of Minutes Spent Total Time Spent with Patient: Total time spent is greater than 50% in coordination of care (as documented) at patient's floor/unit and/or counseling patient: Coding Level of Care Code 45461 SUB INP/OBS CARE 2/35MIN Diagnoses SBO (small bowel obstruction) K56.609 Alcohol abuse F10.10 Epigastric abdominal pain R10.13 Acute alcoholic pancreatitis K85.20
--- NOTE | 2023-01-09 12:43 | XRay Report ---
KUB HISTORY: Acute onset abdominal pain with small bowel obstruction COMPARISON: CT 01/06/2023, KUB 01/08/2023. FINDINGS: Cholecystectomy. Pancreatic calcifications redemonstrated. Persistent mild distention with air-filled dilated loops measuring up to 3.3 cm, previously 3.7 cm. Mild to moderate colonic fecal re tention. No urolith identified. Lower lumbar spinal fusion hardware with discectomy. Pelvic basin phl eboliths. IMPRESSION: Persistent small bowel obstruction. Continued follow-up recommended. ACT 112: Negative or not required by law. The above report was generated using voice recognition software. It may contain grammatical, syntax o r spelling errors. Electronically signed by: Timur Álvarez M.D. 01/09/2023 12:42 PM
--- NOTE | 2023-01-09 17:22 | Hospitalist Progress Note ---
Date of Service January 09, 2023 Assessment & Plan (1) Hypotension: Plan: Small bowel obstruction H/O appendectomy, cholecystectomy H/O chronic pancreatitis Lactic acidosis --CT ABD:Progressive distention of small bowel loops with a focal point of obstruction suggested in the right lower quadrant. No evidence for perforation. 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 GERD/Renae's esophagus Continue PPI H/O ADD/mood disorder Continue home medications H/O PE/recurrent DVT Hold Eliquis for now Continue IV heparin H/O Chronic pain H/O Narcotic abuse Avoid IV narcotics as able DVT Px: IV Heparin Code Status Full Code Admission and Anticipated Discharge Date Admission Date: January 07, 2023 Subjective Patient is seen and examined at bedside Abdominal pain is controlled No new complaints + Flatus aftersmall bowel follow-through study No BM yet Denies any chest pain, dyspnea, dizziness, nausea, vomiting Review of Systems Review of Systems: All systems reviewed & are unremarkable except as noted in Subjective Physical Exam Physical Exam: Physical Exam: Vitals signs as noted above General Appearance:Moderately built and nourished, no apparent distress Head: normocephalic, Atraumatic Eyes: normal inspection, EOMI Neck: supple, Trachea midline Respiratory/Chest: Normal breath sounds, CTA, No accessory muscle use Cardiovascular: S1, S2, No murmur Abdomen/GI:Soft, mild epigastric tender, Bowel sounds present Extremities/Musculoskeletal:normal inspection, no edema Neurologic/Psych:AAOX3, grossly no focal neurological deficits Skin: normal color, warm Results & Data Results & Data Vital Signs (Past 12 Hours) Vital Signs Temp Pulse Pulse Resp BP Pulse Ox O2 Del Method 01/09/23 15:47 36.6 C 80 18 120/79 98 Room Air 01/09/23 15:20 74 01/09/23 12:31 36.4 C L 67 16 128/81 99 Room Air 01/09/23 10:35 81 01/09/23 08:26 36.5 C 72 18 119/78 99 Room Air Laboratory Results Short CBC 01/09/23 Range/Units 04:47 WBC 3.86 L (4.8-10.8) K/ul Hgb 13.1 L (14.0-18.0) g/dl Hct 35.9 L (42.0-52.0) % Plt Count 122 L (130-400) K/uL BMP 01/09/23 04:47 Sodium 137 Potassium 3.5 Chloride 108 H Carbon Dioxide 24 BUN 3 L Creatinine 0.60 Glucose 144 H Calcium 8.9 (1) Hypotension Hypotension type: unspecified hypotension type Qualified Code(s): I95.9 - Hypotension, unspecified
[2023-01-09] MEDS: LANTUS PER UNIT CHARGE SQ SCH (21:19)
[2023-01-09] MEDS: AMITRIPTYLINE HCL 50 MG TAB PO SCH (21:19)
[2023-01-10] MEDS: INSULIN ASPART PER UNIT CHARGE SC SCH ×3 (00:03→13:18)
[2023-01-10] MEDS: HYDROmorphone INJ 0.5 MG/0.5 ML SYR IV PRN ×2 (03:25→09:13)
[2023-01-10] MEDS: LACTATED RINGER'S 1,000 ML IV SCH ×2 (03:47→11:27)
[2023-01-10 06:56] LABS: Partial Thromboplastin Ratio 1.9
--- NOTE | 2023-01-10 08:41 | Surgery Progress Note ---
Date of Service January 10, 2023 Assessment & Plan Admission and Anticipated Discharge Date Admission Date: January 07, 2023 Subjective Patient seen. Feeling much better. Had 4 large bowel movements overnight after the small bowel follow-through. Small bowel study not formally read however contrast reaching the rectum. We will initiate clear liquids slowly advance. Potential discharge later today or tomorrow morning. Results & Data Vital Signs (Past 12 Hours) Vital Signs Temp Pulse Pulse Resp BP Pulse Ox O2 Del Method 01/10/23 03:00 36.4 C L 72 18 111/71 98 Room Air 01/09/23 23:19 36.8 C 81 18 121/77 97 Room Air 01/09/23 23:00 75 PG Care Time/CCT Total # of Minutes Spent Total Time Spent with Patient: Total time spent is greater than 50% in coordination of care (as documented) at patient's floor/unit and/or counseling patient: Coding Level of Care Code 21971 SUB INP/OBS CARE 2/35MIN Diagnoses
[2023-01-10 08:57] VITALS: O2SAT 99
[2023-01-10] MEDS: THIAMINE HCL 100 MG TAB PO SCH (09:13)
[2023-01-10] MEDS: PANTOprazole 40 MG TAB PO SCH (09:13)
[2023-01-10] MEDS: SUCRALFATE 1 GM/10 ML UDC PO SCH ×2 (09:13→13:19)
[2023-01-10] MEDS: FOLIC ACID 1 MG TAB PO SCH (09:14)
[2023-01-10] MEDS: MULTIVITAMIN TAB PO SCH (09:14)
--- NOTE | 2023-01-10 09:55 | Fluoroscopy Report ---
[place] small bowel follow through CLINICAL HISTORY: 47 years-old Male with sbo. Follow-up study in a patient with small bowel obstruct ion TECHNIQUE: Oral barium was administered to the patient and serial radiographs of the abdomen were pe rformed. COMPARISON STUDY: KUB of same day, CT 01/06/2023 FLUOROSCOPY TIME: 0 minutes. 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 No pneumoperitoneum identified. Lumbar spinal fusion hard gould. Cholecystectomy. Upon the administration of oral barium contrast, there is prompt opacification of the gastric lumen a nd proximal small bowel. Transit to the large bowel occurred between the 100 and 160 minute time int erval and the last image demonstrates contrast within the large bowel and rectum. The terminal ileum appears unremarkable. IMPRESSION: Persistent small bowel distention with enteric contrast extending into the large bowel a nd rectum at the 2 hour and 40 minute image. Findings are suggestive of ileus versus partial obstruct ion. ACT 112: Negative or not required by law. The above report was generated using voice recognition software. It may contain grammatical, syntax o r spelling errors. Electronically signed by: Timur Álvarez M.D. 01/09/2023 1:38 PM
--- NOTE | 2023-01-10 09:59 | XRay Report ---
KUB HISTORY: Acute onset abdominal pain was reported small bowel obstruction SBO COMPARISON: Small bowel follow-through of same day FINDINGS: Cholecystectomy. Lower lumbar spinal fusion hardware. Persistent small bowel distention. Ne ar complete evacuation of the enteric contrast which is now predominantly within the descending colon , sigmoid and rectum. Pelvic basin phleboliths. No urolith, pneumatosis or pneumoperitoneum. No acute fracture. IMPRESSION: 1. Near complete evacuation of the enteric contrast with trace residual within the left hemicolon and rectum. 2. Mild persistent small bowel dilation. ACT 112: Negative or not required by law. The above report was generated using voice recognition software. It may contain grammatical, syntax o r spelling errors. Electronically signed by: Timur Álvarez M.D. 01/10/2023 9:56 AM
[2023-01-10] MEDS: HEPARIN SODIUM/DEXTROSE 25,000 UNITS/500 ML BAG IV SCH (11:27)
[2023-01-10 12:13] VITALS: TEMP 97.9
[2023-01-10] MEDS: GABAPENTIN 600 MG TAB PO SCH (13:19)
--- NOTE | 2023-01-10 14:46 | Hospitalist Progress Note ---
Date of Service January 10, 2023 Assessment & Plan (1) Hypotension: Plan: Small bowel obstruction H/O appendectomy, cholecystectomy H/O chronic pancreatitis Lactic acidosis --CT ABD:Progressive distention of small bowel loops with a focal point of obstruction suggested in the right lower quadrant. No evidence for perforation. --Small bowel follow-through study:Persistent small bowel distention with enteric contrast extending into the large bowel and rectum at the 2 hour and 40 minute image. Findings are suggestive of ileus versus partial obstruction. --KUB:Near complete evacuation of the enteric contrast with trace residual w ithin the left hemicolon and rectum. Mild persistent small bowel dilation. Continue conservative management with bowel rest, IV fluids Appreciate surgery input Improved with conservative management Minimize narcotics as able Had multiple BMs Tolerated low fiber diet Advised to follow-up with surgery upon discharge Mild DKA secondary to illness/medication noncompliance H/O DM II Last HbA1C:10.1 Acidosis resolved Continue insulin per protocol Monitor BGS Alcohol withdrawal Monitor for withdrawal Continue thiamine, folic acid On gabapentin protocol Border Measurer to quit drinking alcohol GERD/Renae's esophagus Continue PPI H/O ADD/mood disorder Continue home medications H/O PE/recurrent DVT Hold Eliquis for now Continue IV heparin H/O Chronic pain H/O Narcotic abuse Avoid IV narcotics as able DVT Px: IV Heparin Code Status Full Code Disposition Home Admission and Anticipated Discharge Date Admission Date: January 07, 2023 Subjective Patient is seen and examined at bedside Had multiple bowel movements Abdominal pain resolved Denies any nausea, vomiting Discussed with surgery today Tolerated liquid diet with no issues Denies any chest pain, dyspnea, dizziness Review of Systems Review of Systems: All systems reviewed & are unremarkable except as noted in Subjective Physical Exam Physical Exam: Physical Exam: Vitals signs as noted above General Appearance:Moderately built and nourished, no apparent distress Head: normocephalic, Atraumatic Eyes: normal inspection, EOMI Neck: supple, Trachea midline Respiratory/Chest: Normal breath sounds, CTA, No accessory muscle use Cardiovascular: S1, S2, No murmur Abdomen/GI:Soft, mild epigastric tender, Bowel sounds present Extremities/Musculoskeletal:normal inspection, no edema Neurologic/Psych:AAOX3, grossly no focal neurological deficits Skin: normal color, warm Results & Data Results & Data Vital Signs (Past 12 Hours) Vital Signs Temp Pulse Pulse Resp BP BP Pulse Ox 01/10/23 12:13 36.6 C 73 19 115/75 99 01/10/23 11:41 63 01/10/23 07:52 36.7 C 74 17 140/98 99 01/10/23 03:00 36.4 C L 72 18 111/71 98 O2 Del Method 01/10/23 12:13 Room Air 01/10/23 11:41 01/10/23 07:52 Room Air 01/10/23 03:00 Room Air (1) Hypotension Hypotension type: unspecified hypotension type Qualified Code(s): I95.9 - Hypotension, unspecified
--- NOTE | 2023-01-10 15:17 | Discharge Summary ---
Date of Service January 10, 2023 Admission HPI Per Admitting Provider History is obtained from the patient and records. 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 Monthly admissions since October 2022 for abdominal pain in the setting of alcohol abuse. Recent overnight confinement 01/04 to 01/05 for chronic pancreatitis. Patient refused provider recommendation to stay in the hospital until alcohol withdrawal period elapsed. Patient started drinking again following discharge from the hospital. Patient noted recurrence of pancreatitis pain in his abdomen going to his chest. Some nausea, no vomiting. No headache symptoms. Mushy nonbloody bowel movement as per patient. Patient found intoxicated outside a local gasoline station. Lowest SBP noted to be 90s at the ER. MEDICAL HISTORY: As above. SURGERIES: Appendectomy, cholecystectomy, vascular device placement, back surgery FAMILY HISTORY: There is a family history of mood disorder. Alcoholism, heart disease. 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 Principal Diagnosis Small bowel obstruction Discharge Exam GENERAL: Intoxicated, looks older than stated age, no respiratory distress SKIN: Normal color, warm HEENT: Alopecia, pink palpebral conjunctivae, no ptosis, dry buccal mucosa NECK : Supple, short neck, no tenderness CHEST : CTA, no tenderness HEART : Tachycardic, no obvious murmurs ABDOMEN: Some distention, epigastric tenderness EXTREMITIES : No LE swelling, no LE tenderness NEUROLOGIC : Coherent, no facial asymmetry, no other gross focality Discharge Data Allergies Allergy/AdvReac Type Severity Reaction Status Date / Time No Known Allergies Allergy Verified 01/06/23 23:11 Consultations 01/06/23 23:30 ED Decision to Admit Stat 01/07/23 00:49 Consult General Surgery Routine Procedures Performed Laboratory Results WBC 3.86 K/ul (4.8-10.8) L 01/09/23 04:47 RBC 3.96 M/uL (4.70-6.10) L 01/09/23 04:47 Hgb 13.1 g/dl (14.0-18.0) L 01/09/23 04:47 Hct 35.9 % (42.0-52.0) L 01/09/23 04:47 MCV 90.7 fL (80.0-100.0) 01/09/23 04:47 MCH 33.1 pg (25.0-34.0) 01/09/23 04:47 MCHC 36.5 g/dL (32.0-36.0) H 01/09/23 04:47 RDW Std Deviation 36.5 fL (36.4-46.3) 01/09/23 04:47 RDW Coeff of Gucci 10.9 % (11.5-14.5) L 01/09/23 04:47 Plt Count 122 K/uL (130-400) L 01/09/23 04:47 MPV 10.0 fL (9.4-12.4) 01/09/23 04:47 Immature Gran % (Auto) 0.2 % 01/07/23 04:01 Neut % (Auto) 56.0 % 01/07/23 04:01 Lymph % (Auto) 27.4 % 01/07/23 04:01 Hughes % (Auto) 10.6 % 01/07/23 04:01 Eos % (Auto) 5.3 % 01/07/23 04:01 Baso % (Auto) 0.5 % 01/07/23 04:01 Neut # (Auto) 3.28 K/uL (1.40-6.50) 01/07/23 04:01 Lymph # (Auto) 1.60 K/uL (1.2-3.4) 01/07/23 04:01 Hughes # (Auto) 0.62 K/uL (0.11-0.59) H 01/07/23 04:01 Eos # (Auto) 0.31 K/uL (0-0.50) 01/07/23 04:01 Baso # (Auto) 0.03 K/uL (0-0.2) 01/07/23 04:01 Immature Gran # (Auto) 0.01 K/uL (0.01-0.20) 01/07/23 04:01 APTT 53.0 Seconds (21.0-31.0) H* 01/10/23 05:42 PTT Ratio 1.9 01/10/23 05:42 VBG pH 7.33 (7.36-7.41) L 01/07/23 03:59 VBG pCO2 42 mmHg (38-50) 01/07/23 03:59 VBG pO2 68 mmHg 01/07/23 03:59 VBG HCO3 22 mmol/L 01/07/23 03:59 VBG O2 Saturation 92.5 % 01/07/23 03:59 VBG Base Excess -3.7 mEq/L 01/07/23 03:59 Sodium 137 mmol/L (136-145) 01/09/23 04:47 Potassium 3.5 mmol/L (3.5-5.1) 01/09/23 04:47 Chloride 108 mmol/L (98-107) H 01/09/23 04:47 Carbon Dioxide 24 mmol/L (21-32) 01/09/23 04:47 Anion Gap 5 (3-11) 01/09/23 04:47 BUN 3 mg/dl (6-23) L 01/09/23 04:47 Creatinine 0.60 mg/dl (0.6-1.4) 01/09/23 04:47 Est Cr Clr Drug Dosing 163.5 ml/min 01/09/23 04:47 Est GFR ( Amer) 136.8 ml/min 01/09/23 04:47 Est GFR (Non-Af Amer) 118.1 ml/min 01/09/23 04:47 BUN/Creatinine Ratio 5.0 (10-20) L 01/09/23 04:47 Glucose 144 mg/dl (70-99(Fasting)) H 01/09/23 04:47 POC Glucose 139 mg/dl (70-99) H 01/10/23 06:06 Lactate 2.4 mmol/L (0.4-2.0) H* 01/07/23 08:09 Calcium 8.9 mg/dl (8.6-10.3) 01/09/23 04:47 Magnesium 1.8 mg/dl (1.7-2.4) 01/09/23 04:47 Total Bilirubin 0.6 mg/dl (0.2-1.0) 01/06/23 20:30 AST 32 U/L (13-39) 01/06/23 20:30 ALT 25 U/L (7-52) 01/06/23 20:30 Alkaline Phosphatase 63 U/L (34-104) 01/06/23 20:30 Troponin I High Sens 2.9 pg/ml (0-20) 01/06/23 20:30 Total Protein 7.4 gm/dl (6.0-8.3) 01/06/23 20:30 Albumin 3.9 gm/dl (3.4-5.0) 01/06/23 20:30 Globulin 3.5 gm/dl (2.5-4.0) 01/06/23 20:30 Albumin/Globulin Ratio 1.1 (0.9-2) 01/06/23 20:30 Lipase 9 U/L (11-82) L 01/06/23 20:30 Procalcitonin 0.19 ng/ml (0-0.5) 01/07/23 00:43 Urine Color Yellow 01/06/23 21:12 Urine Appearance Clear (Clear) 01/06/23 21:12 Urine pH 5.0 (4.5-7.5) 01/06/23 21:12 Ur Specific [place] 1.012 (1.000-1.030) 01/06/23 21:12 Urine Protein Negative (Negative) 01/06/23 21:12 Urine Glucose (UA) 3+ (Negative) H 01/06/23 21:12 Urine Ketones Trace (Negative) H 01/06/23 21:12 Urine Blood Negative (Negative) 01/06/23 21:12 Urine Nitrite Negative (Negative) 01/06/23 21:12 Urine Bilirubin Negative (Negative) 01/06/23 21:12 Urine Urobilinogen Negative (Negative) 01/06/23 21:12 Ur Leukocyte Esterase Negative (Negative) 01/06/23 21:12 Ethyl Alcohol mg/dL 300.9 mg/dl (<10.0) H 01/06/23 20:30 SARS-CoV-2, RNA, NAAT NEGATIVE (NEGATIVE) 01/06/23 23:36 Impressions Abdomen/Pelvis CT 01/06/23 21:08 Exam(s): CT ABDOMEN + PELVIS With Contrast IV Amt: 86ml optiray 320 EXAM: CT Abdomen and Pelvis With Intravenous Contrast CLINICAL HISTORY: Reason for exam: abd pain. TECHNIQUE: Axial computed tomography images of the abdomen and pelvis with intravenous contrast. CTDI is 25.3 mGy and DLP is 1504.56 mGy-cm. Automated exposure control was utilized for the study. A dose lowering technique was utilized adhering to the principles of ALARA. CONTRAST: Patient received 86ml optiray 320 of IV contrast COMPARISON: Dated 01/03/23 FINDINGS: Lung bases: Unremarkable. No mass. No consolidation. ABDOMEN: Liver: Unremarkable. No mass. Gallbladder and bile ducts: The patient is status post cholecystectomy. No ductal dilation. Pancreas: There is calcification of the pancreatic parenchyma compatible with chronic pancreatitis. No ductal dilation. Spleen: Unremarkable. No splenomegaly. Adrenals: Unremarkable. No mass. Kidneys and ureters: Unremarkable. No solid mass. No hydronephrosis. Stomach and bowel: There is been interval increase in fluid distention of multiple small bowel loops with a focal point of obstruction suggested in the right lower quadrant (image 58 series 4). No mucosal thickening. PELVIS: Appendix: No findings to suggest acute appendicitis. Bladder: The urinary bladder is quite distended. Reproductive: Unremarkable as visualized. ABDOMEN and PELVIS: Intraperitoneal space: Unremarkable. No free air. No significant fluid collection. Bones/joints: There are degenerative changes of the thoracolumbar spine. There are postsurgical changes of the lower lumbar spine. No acute fracture. No dislocation. Soft tissues: Unremarkable. Vasculature: Unremarkable. No abdominal aortic aneurysm. Lymph nodes: Unremarkable. No enlarged lymph nodes. IMPRESSION: Progressive distention of small bowel loops with a focal point of obstruction suggested in the right lower quadrant. No evidence for perforation. Electronically signed by: Jd Jo MD 01/06/23 23:33 PM Chest X-Ray 01/06/23 21:08 XR chest 1V portable HISTORY: 47 years-old Male fall acute chest trauma status post fall COMPARISON: 12/20/2022 TECHNIQUE: AP view of the chest FINDINGS: Cardiomediastinal and hilar silhouettes are within normal limits. There is no pneumothorax, pleural effusion, airspace consolidation or overt pulmonary edema. Cholecystectomy. Degenerative changes of the shoulders and spine. IMPRESSION: No acute process. ACT 112: Negative or not required by law. The above report was generated using voice recognition software. It may contain grammatical, syntax or spelling errors. Electronically signed by: Timur Álvarez M.D. 01/07/2023 7:[address] 01/06/23 21:08 Exam(s): CT HEAD Without Contrast EXAM: CT Head Without Intravenous Contrast CLINICAL HISTORY: Reason for exam: fall etoh. TECHNIQUE: Axial computed tomography images of the head/brain without intravenous contrast. CTDI is 37.61 mGy and DLP is 702.46 mGy-cm. Automated exposure control was utilized for the study. A dose lowering technique was utilized adhering to the principles of ALARA. COMPARISON: Dated 12/20/22 FINDINGS: Brain: Unremarkable. No hemorrhage. No significant white matter disease. No edema. Ventricles: There are calcifications of the choroid plexus and pineal gland. Bones/joints: Unremarkable. No acute fracture. Soft tissues: Unremarkable. Sinuses: There is moderate sinus mucosal thickening within the left maxillary sinus. There is polypoid disease versus retention cysts in the right maxillary sinus. Mastoid air cells: Unremarkable as visualized. No mastoid effusion. IMPRESSION: No acute findings in the head/brain. Electronically signed by: Jd Jo MD 01/06/23 23:34 PM Small Bowel X-Ray 01/09/23 09:39 FL small bowel follow through CLINICAL HISTORY: 47 years-old Male with sbo. Follow-up study in a patient with small bowel obstruction TECHNIQUE: Oral barium was administered to the patient and serial radiographs of the abdomen were performed. COMPARISON STUDY: KUB of same day, CT 01/06/2023 FLUOROSCOPY TIME: 0 minutes. 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 No pneumoperitoneum identified. Lumbar spinal fusion hardware. Cholecystectomy. Upon the administration of oral barium contrast, there is prompt opacification of the gastric lumen and proximal small bowel. Transit to the large bowel occurred between the 100 and 160 minute time interval and the last image demonstrates contrast within the large bowel and rectum. The terminal ileum appears unremarkable. IMPRESSION: Persistent small bowel distention with enteric contrast extending into the large bowel and rectum at the 2 hour and 40 minute image. Findings are suggestive of ileus versus partial obstruction. ACT 112: Negative or not required by law. The above report was generated using voice recognition software. It may contain grammatical, syntax or spelling errors. Electronically signed by: Timur Álvarez M.D. 01/09/2023 1:38 PM KUB X-Ray 01/09/23 19:11 KUB HISTORY: Acute onset abdominal pain was reported small bowel obstruction SBO COMPARISON: Small bowel follow-through of same day FINDINGS: Cholecystectomy. Lower lumbar spinal fusion hardware. Persistent small bowel distention. Near complete evacuation of the enteric contrast which is now predominantly within the descending colon, sigmoid and rectum. Pelvic basin phl eboliths. No urolith, pneumatosis or pneumoperitoneum. No acute fracture. IMPRESSION: 1. Near complete evacuation of the enteric contrast with trace residual within the left hemicolon and rectum. 2. Mild persistent small bowel dilation. ACT 112: Negative or not required by law. The above report was generated using voice recognition software. It may contain grammatical, syntax or spelling errors. Electronically signed by: Timur Álvarez M.D. 01/10/2023 9:56 AM Ordered Studies 01/06/23 21:08 CT abd pelvis IV con only Stat CT head/brain wo con Stat 01/09/23 09:39 FL small bowel follow through Routine Hospital Course (1) Hypotension: Small bowel obstruction H/O appendectomy, cholecystectomy H/O chronic pancreatitis Lactic acidosis --CT ABD:Progressive distention of small bowel loops with a focal point of obstruction suggested in the right lower quadrant. No evidence for perforation. --Small bowel follow-through study:Persistent small bowel distention with enteric contrast extending into the large bowel and rectum at the 2 hour and 40 minute image. Findings are suggestive of ileus versus partial obstruction. --KUB:Near complete evacuation of the enteric contrast with trace residual within the left hemicolon and rectum. Mild persistent small bowel dilation. Continue conservative management with bowel rest, IV fluids Appreciate surgery input Improved with conservative management Minimize narcotics as able Had multiple BMs Tolerated low fiber diet Advised to follow-up with surgery upon discharge Mild DKA secondary to illness/medication noncompliance H/O DM II Last HbA1C:10.1 Acidosis resolved Continue insulin per protocol Monitor BGS Alcohol withdrawal Monitor for withdrawal Continue thiamine, folic acid On gabapentin protocol Joiner to quit drinking alcohol GERD/Renae's esophagus Continue PPI H/O ADD/mood disorder Continue home medications H/O PE/recurrent DVT Hold Eliquis for now Continue IV heparin H/O Chronic pain H/O Narcotic abuse Avoid IV narcotics as able DVT Px: IV Heparin Code Status Full Code Disposition Home Total Time Total Time Spent Total Time Spent (In Minutes): 54 minutes Discharge Plan Discharge Items Patient Disposition: Home - Self-Care Reason For Visit: HYPOTENSION, SBO Discharge Diagnosis: Small bowel obstruction Activity: Per Instructions section Exercise/Sports: Gradually increase as tolerated Non-emergency contact: Primary Care Provider and Surgeon Call non-emergency contact if: you have any medication questions, your symptoms worsen, your pain is concerning for you and you have a fever Follow-up/Referrals: Dhiraj Myers DO [Primary Care Provider] - (Date & Time 01/19/2023 11:00 AM Provider Brandie Galvez DO Department [facility] *Please note that the previously scheduled appt for 01/12/23 has been cancelled/rescheduled to 01/19/23.*) Diet: Carb Consistent or DM2 and Low Fiber Addtl Attending Provider Instructions: Follow-up with your primary care physician on 01/19/2023 11:00 AM Follow-up with your surgeon Dr. Vitaliy Price as advised Seek immediate medical attention if your symptoms reoccur or worsen Please take all medications as instructed on discharge list below. Please call if you have any questions or problems. You can reach a [facility] hospitalist on duty at [facility] 24 hours a day by calling [phone] Pending Studies at Discharge: No Stand-Alone Forms: My [facility], Smoking Cessation Medications and DC Order Prescriptions: Continued Eliquis 5 mg tablet 5 mg PO BID hydroxyzine pamoate 25 mg capsule 25 mg PO BID PRN (Reason: Anxiety) Creon 24,000-76,000 -120,000 unit capsule,delayed release(DR/EC) 1 cap PO TID Qty: 90 0RF Rx Instructions: administer with meals and/or snacks glipizide 5 mg tablet extended release 24hr 5 mg PO DAILY amitriptyline 50 mg tablet 50 mg PO HS pantoprazole 40 mg tablet,delayed release (DR/EC) 40 mg PO DAILY insulin glargine [Lantus Solostar U-100 Insulin] 100 unit/mL (3 mL) insulin pen 15 unit subcut HS gabapentin 600 mg Tablet 600 mg PO Q12H 2 Days Qty: 4 0RF folic acid 1 mg Tablet 1 mg PO QAM Qty: 30 0RF multivitamin with folic acid [Daily-Chriss (with folic acid)] 400 mcg Tablet 1 tab PO QAM Qty: 30 0RF thiamine HCl (vitamin B1) 100 mg Tablet 100 mg PO QAM 15 Days Qty: 15 0RF oxycodone 5 mg Tablet 5 mg PO Q8H PRN (Reason: pain (scale score 7-10)) Qty: 9 0RF Discharge Orders: Discharge Order (Routine); Ordered 01/10/23 Ordered By: Jon Bowden/Other Patient Handouts: Low-Fiber Diet Admission Data Admit Date/Time: 01/07/23 00:47 Attending Provider: Jon Luis Admit Provider: Bishop Enamorado Primary Care Provider: Dhiraj Myers Other Providers: Venkat Singh ; Denys Vazquez ; Van Giordano ; Vitaliy Price ; Gen Babcock ; Layla Ashton ; Michael Waite ; Fabricio Doran ; Asher Tanner ; Bishop Enamorado
[2023-01-10 15:21] VITALS: BP 111/71; PULSE 69
== END 2023-01-10 16:39 | disposition home or self-care (01) | DRG 388 ==
LOC: ED 20:20 → 4W 01-07 00:47 → SUATTDRO 01-07 00:47 → 4W 01-07 02:20

== ENCOUNTER 2023-01-15 21:06 | Inpatient (IN) ==
[2023-01-15] MEDS ORDERED: ONDANSETRON INJ 2 MG/ML 2 ML VIAL ONE (21:29)
[2023-01-15] MEDS ORDERED: ONDANSETRON INJ 2 MG/ML 2 ML VIAL IV STA (21:30)
[2023-01-15] MEDS ORDERED: SODIUM CHLORIDE 0.9% 1000ML 1,000 ML IV STA (21:30)
[2023-01-15] MEDS ORDERED: FAMOTIDINE 20MG IV PUSH 20 MG/5 ML SYR IV STA (21:47)
[2023-01-15 22:21] LABS: Alanine Aminotransferase 21 U/L (7-52); Albumin Globulin Ratio 1.2 (0.9-2); Albumin Level 3.9 gm/dl (3.4-5.0); Alkaline Phosphatase 80 U/L (34-104); Anion Gap 11 (3-11); Aspartate Aminotransferase 15 U/L (13-39); BUN Creatinine Ratio 8.9 (10-20); Bilirubin,Total 0.4 mg/dl (0.2-1.0); Blood Urea Nitrogen 7 mg/dl (6-23); Calcium 9.5 mg/dl (8.6-10.3); Carbon Dioxide 21 mmol/L (21-32); Chloride 99 mmol/L (98-107); Creatinine Clr Calc Pharmacy 124.1 ml/min; Est GFR (African American) 122.2 ml/min; Est GFR (Non-African American) 105.4 ml/min; Globulin 3.2 gm/dl (2.5-4.0); Glucose 370 mg/dl (70-99(Fasting)); Lipase 15 U/L (11-82); Sodium 131 mmol/L (136-145); Total Protein 7.1 gm/dl (6.0-8.3); Troponin I High Sensitivity < 2.3 pg/ml (0-20)
[2023-01-15 22:27] LABS: Basophils # (auto) 0.05 K/uL (0-0.2); Basophils % (auto) 0.9 %; Eosinophils # (auto) 0.36 K/uL (0-0.50); Eosinophils % (auto) 6.3 %; Hematocrit (blood only) 39.9 % (42.0-52.0); Hemoglobin 14.2 g/dl (14.0-18.0); Immature Granulocytes # (auto) 0.01 K/uL (0.01-0.20); Immature Granulocytes % (auto) 0.2 %; Lymphocytes # (auto) 2.01 K/uL (1.2-3.4); Lymphocytes % (auto) 35.3 %; Mean Corpuscular Hemoglobin 32.3 pg (25.0-34.0); Mean Corpuscular Hgb Conc 35.6 g/dL (32.0-36.0); Mean Corpuscular Volume 90.9 fL (80.0-100.0); Mean Platelet Volume 9.5 fL (9.4-12.4); Monocytes # (auto) 0.42 K/uL (0.11-0.59); Monocytes % (auto) 7.4 %; Neutrophils # (auto) 2.85 K/uL (1.40-6.50); Neutrophils % (auto) 49.9 %; Platelet Count 178 K/uL (130-400); RDW Coefficient of Variation 11.1 % (11.5-14.5); RDW Standard Deviation 37.3 fL (36.4-46.3); Red Blood Count 4.39 M/uL (4.70-6.10)
[2023-01-15 22:31] LABS: Appearance Urine Clear (Clear); Bilirubin Urine Negative (Negative); Blood Urine Negative (Negative); Color Urine Yellow; Glucose Urine UA 3+ (Negative); Ketones Urine Negative (Negative); Leukocyte Esterase Urine Negative (Negative); Nitrite Urine Negative (Negative); Protein Urine Negative (Negative); Specific Gravity Urine 1.008 (1.000-1.030); Urobilinogen Urine Negative (Negative)
[2023-01-15 22:38] LABS: Bilirubin Direct 0.1 mg/dl (0-0.2)
[2023-01-15] MEDS ORDERED: LORazepam 2 MG/1 ML VIAL IV STA ×2 (22:38→23:57)
[2023-01-15] MEDS ORDERED: SODIUM CHLORIDE 0.9% 1000ML 1,000 ML IV ONE (22:38)
[2023-01-15] MEDS ORDERED: DICYCLOMINE HCL 10 MG/ML 2 ML AMP/VIAL IM ONE (22:38)
--- NOTE | 2023-01-15 22:41 | Emergency Department Note ---
Impression & Plan Gastritis, Alcohol dependence, Intractable abdominal pain, Alcohol intoxication, Chronic pancreatitis, Hyperglycemia due to type 2 diabetes mellitus ED Provider Note NAME: RIKY MELTON AGE: 47 SEX: M ARRIVES VIA: Ambulance INFORMANT: Patient ED PROVIDER(S): Sushant Nahs MD CHIEF COMPLAINT: Alcohol intoxication, Abdominal pain. PLAN: Disposition: Admit MEDICAL DECISION MAKING: The patient is a 47-year-old gentleman with a past medical history of alcohol abuse/dependence, Barretts esophagus, gastritis, chronic pancreatitis/chronic abdominal pain with repeat emergency department visits and hospitalizations over the past 2 months who presents to the emergency department via EMS for flare of abdominal pain which he correlates with his history of pancreatitis. The patient was last seen in the emergency department on 01/13 for similar flare of symptoms where his lipase was not elevated and CT of the and pelvis did not show acute inflammatory change. He was treated with IV fluids and Dilaudid and was subsequently discharged after he reported improvement. Patient reports today that he is interested in alcohol detox. Of note, the patient did arrive to emergency department during time of high volume, acuity and prolonged emergency department waiting times. Critical pathways initiated from triage. On my evaluation, the patient is in no acute distress, afebrile stable vital signs. He appears clinically dry. He has generalized abdominal discomfort to light touch without guarding or rebound. I did speak at length with the patient regarding that narcotics are not in his best interest and if his CT imaging did not show acute inflammatory changes this would not be provided. The patient did express understanding with this plan. He was treated with IV fluid hydration, famotidine, Zofran, dicyclomine as well as IV Ativan for prophylaxis against withdrawal. EKG without overt acute ischemia. WBC, hemoglobin and platelets within normal limits. Glucose 300s however chemistry without metabolic acidosis. Electrolytes and LFTs without significant abnormality. High-sensitivity troponin is undetectable. Lipase not elevated. UA without evidence of infection. Medical alcohol 330. CT of the abdomen pelvis was performed and demonstrates evidence of chronic pancreatitis with atrophic pancreas. Note is made of dilated pancreatic duct measuring 0.8 cm however no pseudocyst formation is seen nor inflammatory change and is similar to prior imaging. Of note, I was alerted several times by nursing that the patient continuously would hit his nursing call hawkins and stated that he "had not seen a doctor at all" despite our extensive conversation. I did reevaluate the patient and at the time he was resting comfortably. When he was awakened he confirmed that he did recall speaking to me and our plan as had originally been determined. He continues to report that he is interested in alcohol detox and admission for further management his recurring symptoms. Carafate ordered for suspected gastritis. Case was discussed with Dr. Sousa, [facility], who will evaluate the patient for admission. Triage Nursing notes reviewed and agree them. Prior/outside medical records reviewed Vital Signs: reviewed Differential diagnosis: Appendicitis, testicular torsion, infections, diverticulitis, UTI, obstruction, mesenteric ischemia, aortic pathology, inflammatory bowel disease, renal colic, PUD, pancreatitis, biliary pathology, hernia, volvulus, constipation, as well as other pathologies. ER treatment provided: See below. Diagnostics interpreted by me: ECG: Sinus tachycardia, 101 bpm, no ectopy, no overt ST elevation or depression, QTc 435, QRS 74 Cardiac Monitoring: An order for continuous cardiac monitoring was placed and demonstrated Sinus tachycardia, 101 bpm, no ectopy. Laboratory studies: See below Imaging studies: See below Consultation(s): Case was discussed with Dr. Sousa, [facility], who will evaluate the patient for admission. HPI: The patient is a 47-year-old gentleman with a past medical history of alcoh ol abuse/dependence, Barretts esophagus, gastritis, chronic pancreatitis/chronic abdominal pain with repeat emergency department visits and hospitalizations over the past 2 months who presents to the emergency department via EMS for flare of abdominal pain which he correlates with his history of pancreatitis. The patient was last seen in the emergency department on 01/13 for similar flare of symptoms where his lipase was not elevated and CT of the and pelvis did not show acute inflammatory change. He was treated with IV fluids and Dilaudid and was subsequently discharged after he reported improvement. Patient reports today that he is interested in alcohol detox. ROS: See above HPI for pertinent positives & negatives. A total of 10 systems reviewed and were otherwise negative. VITALS:See Below PHYSICAL EXAMINATION: GENERAL: Awake, alert, intoxicated-appearing, in no distress HENT: Normocephalic, atraumatic. Oropharynx with dry mucous membranes and otherwise unremarkable. EYES: Normal conjunctiva. Sclera non-icteric. NECK: Supple. No nuchal rigidity. FROM. No JVD. RESPIRATORY: Clear to auscultation. CARDIAC: Regular rate, normal rhythm. Extremities warm and well perfused. Pulses equal. ABDOMEN: Soft, non-distended. Generalized abdominal discomfort to light touch without guarding or rebound. Distractible. RECTAL: Deferred. MUSCULOSKELETAL: Chest examination reveals no tenderness. The back is symmet rical on inspection without obvious abnormality. There is no CVA tenderness to palpation. No joint edema. LOWER EXTREMITIES: Calves are equal size bilaterally and non-tender. No edema. No discoloration. NEURO: Normal sensorium. No sensory or motor deficits noted. SKIN: No rash or jaundice noted. Sushant Nash MD Past Med/Surg History Medical History Abdominal pain Abdominal pain Abdominal pain, acute, epigastric Acute hyperglycemia Alcohol abuse (Unknown) Alcohol abuse Alcohol abuse Alcohol withdrawal Alcoholic ketosis Renae's esophagus (Unknown) "per EGD 11/23/09 " On 05/31/11 09:06 Martinez Jose wrote "per EGD 11/23/09 " Chest pain COVID-19 Depression Depression DM type 2 (diabetes mellitus, type 2) Encounter for alcohol abuse counseling and surveillance Encounter for pre-operative examination Encounter for tobacco use cessation counseling H/O acute pancreatitis "recurrent" History of substance abuse Hyperglycemia Intentional drug overdose Lumbar degenerative disc disease Mood disorder Mood disorder Nausea & vomiting Neuropathy Pancreatic duct stones Pancreatitis Panic disorder Pulmonary embolism on chronic apixaban Retrosternal chest pain Suicidal ideation Suicidal ideation Suicide attempt Surgical History H/O esophagogastroduodenoscopy "EGD 11/23/2009- mild gastritis, suspicious for gastroparesis, Z-line irregular EUS 02/04/2010- mild chronic pancreatitis, pronounced cholesterolosis of gallbladder, no biliary dilation or stones, probable gastroparesis EGD 10/31/2014- gastritis" S/P lumbar fusion L4-S1 2014 Family History Father Alcohol abuse Social History Smoking Status: Current every day smoker Tobacco Type: Smokeless Tobacco (Dip or Chew) Second Hand Exposure: No; Do You Dip or Chew Tobacco: Yes; Hx Alcohol Use: Yes Alcohol type: beer Hx Substance Use: No Preferred Language: Japanese Communication Ability: Effective 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 Beliefs That Will Affect Care: None marital status: Current Living Situation: Parent Current Living Situation Comment: from home with mother How many Children do You have: 3 Feels Safe at Home: Yes Assistive Devices: None Allergies Allergies Allergy/AdvReac Type Severity Reaction Status Date / Time No Known Allergies Allergy Verified 01/06/23 23:11 Home Meds Home Medications Medication Instructions Recorded Confirmed apixaban 5 mg tablet (Eliquis) 5 mg PO BID 08/17/22 01/16/23 amitriptyline 50 mg tablet 50 mg PO HS 01/03/23 01/16/23 glipizide 5 mg tablet, extended 5 mg PO DAILY 01/03/23 01/16/23 release 24 hr insulin glargine 100 unit/mL (3 18 unit subcut HS 01/03/23 01/16/23 mL) subcutaneous pen (Lantus Solostar U-100 Insulin) pantoprazole 40 mg tablet,delayed 40 mg PO DAILY 01/03/23 01/16/23 release Previous Rx's Medication Instructions Recorded ftyboa-tsoodfhb-arogeoc 1 cap PO TID #90 caps 12/21/22 24,000-76,000-120,000 unit capsule,delayed rel (Creon) folic acid 1 mg tablet 1 mg PO QAM #30 tabs 01/05/23 multivitamin with folic acid 400 1 tab PO QAM #30 tabs 01/05/23 mcg tablet (Daily-Chriss (with folic acid)) oxycodone 5 mg tablet 5 mg PO Q8H PRN pain (scale score 01/05/23 7-10) #9 tabs thiamine HCl (vitamin B1) 100 mg 100 mg PO QAM 15 days #15 tabs 01/05/23 tablet Results & Data (ED) Vital Signs Vital Signs - 24 hr 01/15/23 21:24 01/15/23 22:47 01/15/23 21:30 Temperature 36.5 C Temperature Source Oral Pulse Rate 100 H 100 H Pulse Rate [Right Finger] 101 H Pulse Rate from SpO2 Sensor Respiratory Rate 19 16 Respiratory Effort / Characteristics Non-Labored Spontaneous Respiratory Depth Normal Blood Pressure 97/81 L Blood Pressure [Right Arm] 108/73 Blood Pressure Mean 86 Blood Pressure Mean [Right Arm] 84 Pulse Oximetry 97 98 Oxygen Delivery Method Room Air Room Air Sepsis Recent Fever Within 48 Hours No Sepsis New/Unexplained Change in Mental Status N/A Sepsis Action Taken by Nursing No Action Required 01/15/23 23:54 01/16/23 00:43 Temperature Temperature Source Pulse Rate 102 H Pulse Rate [Right Finger] Pulse Rate from SpO2 Sensor 103 H Respiratory Rate Respiratory Effort / Characteristics Respiratory Depth Blood Pressure 112/75 Blood Pressure [Right Arm] Blood Pressure Mean 87 Blood Pressure Mean [Right Arm] Pulse Oximetry 98 98 Oxygen Delivery Method Room Air Room Air Sepsis Recent Fever Within 48 Hours Sepsis New/Unexplained Change in Mental Status Sepsis Action Taken by Nursing Laboratory Data Attestation: I reviewed the patient's lab results. 01/15/23 21:15 01/15/23 21:15 Lab Results 01/15/23 01/15/23 01/15/23 Range/Units 21:15 21:15 21:15 WBC 5.70 (4.8-10.8) K/ul RBC 4.39 L (4.70-6.10) M/uL Hgb 14.2 (14.0-18.0) g/dl Hct 39.9 L (42.0-52.0) % MCV 90.9 (80.0-100.0) fL MCH 32.3 (25.0-34.0) pg MCHC 35.6 (32.0-36.0) g/dL RDW Std Deviation 37.3 (36.4-46.3) fL RDW Coeff of Gucci 11.1 L (11.5-14.5) % Plt Count 178 (130-400) K/uL MPV 9.5 (9.4-12.4) fL Immature Gran % (Auto) 0.2 % Neut % (Auto) 49.9 % Lymph % (Auto) 35.3 % [place] % (Auto) 7.4 % Eos % (Auto) 6.3 % Baso % (Auto) 0.9 % Neut # (Auto) 2.85 (1.40-6.50) K/uL Lymph # (Auto) 2.01 (1.2-3.4) K/uL [place] # (Auto) 0.42 (0.11-0.59) K/uL Eos # (Auto) 0.36 (0-0.50) K/uL Baso # (Auto) 0.05 (0-0.2) K/uL Immature Gran # (Auto) 0.01 (0.01-0.20) K/uL PT 11.4 (9.0-12.0) Seconds INR 1.0 (0.9-1.1) Sodium 131 L (136-145) mmol/L Potassium 4.0 (3.5-5.1) mmol/L Chloride 99 (98-107) mmol/L Carbon Dioxide 21 (21-32) mmol/L Anion Gap 11 (3-11) BUN 7 (6-23) mg/dl Creatinine 0.79 (0.6-1.4) mg/dl Est Cr Clr Drug Dosing 124.1 ml/min Est GFR ( Amer) 122.2 ml/min Est GFR (Non-Af Amer) 105.4 ml/min BUN/Creatinine Ratio 8.9 L (10-20) Glucose 370 H* (70-99(Fasting)) mg/dl Calcium 9.5 (8.6-10.3) mg/dl Total Bilirubin 0.4 (0.2-1.0) mg/dl Direct Bilirubin 0.1 (0-0.2) mg/dl AST 15 (13-39) U/L ALT 21 (7-52) U/L Alkaline Phosphatase 80 (34-104) U/L Troponin I High Sens < 2.3 (0-20) pg/ml Total Protein 7.1 (6.0-8.3) gm/dl Albumin 3.9 (3.4-5.0) gm/dl Globulin 3.2 (2.5-4.0) gm/dl Albumin/Globulin Ratio 1.2 (0.9-2) Lipase 15 (11-82) U/L Urine Color Urine Appearance (Clear) Urine pH (4.5-7.5) Ur Specific [place] (1.000-1.030) Urine Protein (Negative) Urine Glucose (UA) (Negative) Urine Ketones (Negative) Urine Blood (Negative) Urine Nitrite (Negative) Urine Bilirubin (Negative) Urine Urobilinogen (Negative) Ur Leukocyte Esterase (Negative) Ethyl Alcohol mg/dL (<10.0) mg/dl 01/15/23 01/15/23 Range/Units 21:15 21:22 WBC (4.8-10.8) K/ul RBC (4.70-6.10) M/uL Hgb (14.0-18.0) g/dl Hct (42.0-52.0) % MCV (80.0-100.0) fL MCH (25.0-34.0) pg MCHC (32.0-36.0) g/dL RDW Std Deviation (36.4-46.3) fL RDW Coeff of Gucci (11.5-14.5) % Plt Count (130-400) K/uL MPV (9.4-12.4) fL Immature Gran % (Auto) % Neut % (Auto) % Lymph % (Auto) % [place] % (Auto) % Eos % (Auto) % Baso % (Auto) % Neut # (Auto) (1.40-6.50) K/uL Lymph # (Auto) (1.2-3.4) K/uL [place] # (Auto) (0.11-0.59) K/uL Eos # (Auto) (0-0.50) K/uL Baso # (Auto) (0-0.2) K/uL Immature Gran # (Auto) (0.01-0.20) K/uL PT (9.0-12.0) Seconds INR (0.9-1.1) Sodium (136-145) mmol/L Potassium (3.5-5.1) mmol/L Chloride (98-107) mmol/L Carbon Dioxide (21-32) mmol/L Anion Gap (3-11) BUN (6-23) mg/dl Creatinine (0.6-1.4) mg/dl Est Cr Clr Drug Dosing ml/min Est GFR ( Amer) ml/min Est GFR (Non-Af Amer) ml/min BUN/Creatinine Ratio (10-20) Glucose (70-99(Fasting)) mg/dl Calcium (8.6-10.3) mg/dl Total Bilirubin (0.2-1.0) mg/dl Direct Bilirubin (0-0.2) mg/dl AST (13-39) U/L ALT (7-52) U/L Alkaline Phosphatase (34-104) U/L Troponin I High Sens (0-20) pg/ml Total Protein (6.0-8.3) gm/dl Albumin (3.4-5.0) gm/dl Globulin (2.5-4.0) gm/dl Albumin/Globulin Ratio (0.9-2) Lipase (11-82) U/L Urine Color Yellow Urine Appearance Clear (Clear) Urine pH 6.0 (4.5-7.5) Ur Specific [place] 1.008 (1.000-1.030) Urine Protein Negative (Negative) Urine Glucose (UA) 3+ H (Negative) Urine Ketones Negative (Negative) Urine Blood Negative (Negative) Urine Nitrite Negative (Negative) Urine Bilirubin Negative (Negative) Urine Urobilinogen Negative (Negative) Ur Leukocyte Esterase Negative (Negative) Ethyl Alcohol mg/dL 330.4 H (<10.0) mg/dl Administered Medications Discontinued Medications Dicyclomine HCl (Dicyclomine Hcl 10 Mg/Ml 2 Ml Amp/Vial) 20 mg IM NOW ONE Stop: 01/15/23 22:39 Last Admin: 01/15/23 22:46 Dose: 20 mg Documented By: STEPHANIE Sodium Chloride (Nss 1000ml) 1,000 mls @ 999 mls/hr IV .Q1H1M STA Stop: 01/15/23 22:30 Last Infusion: 01/15/23 22:25 Dose: 0 mls/hr Documented By: Admin: 01/15/23 21:32 Dose: 999 mls/hr Documented By: STEPHANIE Famotidine (Pepcid 20mg Iv Push) 20 mg in 5 mls @ 2.5 mls/min IV NOW STA Stop: 01/15/23 21:48 Last Admin: 01/15/23 22:05 Dose: 2.5 mls/min Documented By: LESLY Sodium Chloride (Nss 1000ml) 1,000 mls @ 999 mls/hr IV .Q1H1M ONE Stop: 01/15/23 23:38 Last Infusion: 01/15/23 23:58 Dose: 0 mls/hr Documented By: Admin: 01/15/23 22:46 Dose: 999 mls/hr Documented By: STEPHANIE Ioversol (Optiray 320 100ml) 90 ml IV ONCE ONE Stop: 01/15/23 23:09 Last Admin: 01/15/23 23:08 Dose: 90 ml Documented By: SEDA Lorazepam (Lorazepam 2 Mg/1 Ml Vial) 1 mg IV NOW STA Stop: 01/15/23 22:39 Last Admin: 01/15/23 22:46 Dose: 1 mg Documented By: ASW Lorazepam (Lorazepam 2 Mg/1 Ml Vial) 1 mg IV NOW STA Stop: 01/15/23 23:58 Last Admin: 01/16/23 00:02 Dose: 1 mg Documented By: RUEL Ondansetron HCl (Ondansetron Inj 2 Mg/Ml 2 Ml Vial) Confirm Administered Dose 4 mg .ROUTE .STK-MED ONE Stop: 01/15/23 21:30 Last Admin: 01/15/23 21:32 Dose: Not Given Documented By: YASHW Ondansetron HCl (Ondansetron Inj 2 Mg/Ml 2 Ml Vial) 4 mg IV NOW STA Stop: 01/15/23 21:31 Last Admin: 01/15/23 21:32 Dose: 4 mg Documented By: YASHW Imaging Data Radiologist's Impression: Abdomen/Pelvis CT 01/15/23 22:40 Exam(s): CT ABDOMEN + PELVIS With Contrast IV Amt: 90ML OPTIRAY 320 EXAM: CT Abdomen and Pelvis With Intravenous Contrast CLINICAL HISTORY: Reason for exam: abd pain, chronic pancreatitis. TECHNIQUE: Axial computed tomography images of the abdomen and pelvis with intravenous contrast. Automated exposure control was utilized for the study. A dose lowering technique was utilized adhering to the principles of ALARA. CONTRAST: Patient received 90ML OPTIRAY 320 of IV contrast COMPARISON: 01/12/2023 FINDINGS: Lung bases: Lung bases demonstrate bilateral dependent atelectasis. ABDOMEN: Liver: Prominent portal varicosities within the left upper quadrant of unclear etiology as the splenic vein and portal vein appear patent. Additionally, there is no definite imaging evidence of cirrhosis as the cause of the portal varicosities. Gallbladder and bile ducts: Gallbladder has been removed. No ductal dilation. Pancreas: Chronic calcific pancreatitis. Pancreas is atrophic with dilated pancreatic duct measuring up to 0.8 cm. Spleen: Unremarkable. No splenomegaly. Adrenals: Unremarkable. No mass. Kidneys and ureters: Unremarkable. No solid mass. No hydronephrosis. Stomach and bowel: Unremarkable. No obstruction. No mucosal thickening. PELVIS: Appendix: Appendix is not identified but there are no secondary signs of acute appendicitis. Bladder: Unremarkable. No mass. Reproductive: Unremarkable as visualized. ABDOMEN and PELVIS: Intraperitoneal space: Unremarkable. No free air. No significant fluid collection. Bones/joints: No acute fracture. No dislocation. Soft tissues: Unremarkable. Vasculature: Unremarkable. No abdominal aortic aneurysm. Lymph nodes: Unremarkable. No enlarged lymph nodes. IMPRESSION: 1. No evidence of acute abdominal or pelvic process. 2. Chronic calcific pancreatitis with atrophic pancreas and dilated pancreatic duct measuring up to 0.8 cm. No pseudocyst formation is identified. Electronically signed by: Mich Kan M.D. 01/16/23 00:13 AM Discharge Plan Visit Data Chief Complaint: Abdominal Pain Stated Complaint: ABDOMINAL PAIN/ALCOHOL INTOXICATION ED Provider: Sushant Nash Discharge Problem: Gastritis, Alcohol dependence, Intractable abdominal pain, Alcohol intoxication, Chronic pancreatitis, Hyperglycemia due to type 2 diabetes mellitus Forms Stand Alone Forms: [facility] Mobile Safe Case Prescriptions Prescriptions: No Action Eliquis 5 mg tablet 5 mg PO BID Creon 24,000-76,000 -120,000 unit capsule,delayed release(DR/EC) 1 cap PO TID Qty: 90 0RF Rx Instructions: administer with meals and/or snacks glipizide 5 mg tablet extended release 24hr 5 mg PO DAILY amitriptyline 50 mg tablet 50 mg PO HS pantoprazole 40 mg tablet,delayed release (DR/EC) 40 mg PO DAILY insulin glargine [Lantus Solostar U-100 Insulin] 100 unit/mL (3 mL) insulin pen 18 unit subcut HS folic acid 1 mg Tablet 1 mg PO QAM Qty: 30 0RF multivitamin with folic acid [Daily-Chriss (with folic acid)] 400 mcg Tablet 1 tab PO QAM Qty: 30 0RF thiamine HCl (vitamin B1) 100 mg Tablet 100 mg PO QAM 15 Days Qty: 15 0RF oxycodone 5 mg Tablet 5 mg PO Q8H PRN (Reason: pain (scale score 7-10)) Qty: 9 0RF Referrals Referrals: Dhiraj Myers, [Primary Care Provider] -
[2023-01-15 22:57] LABS: Prothrombin Time 11.4 Seconds (9.0-12.0)
[2023-01-15] MEDS ORDERED: OPTIRAY 320 100ml IV ONE (23:08)
--- NOTE | 2023-01-16 00:14 | CT Scan Report ---
Exam(s): CT ABDOMEN + PELVIS With Contrast IV Amt: 90ML OPTIRAY 320 EXAM: CT Abdomen and Pelvis With Intravenous Contrast CLINICAL HISTORY: Reason for exam: abd pain, chronic pancreatitis. TECHNIQUE: Axial computed tomography images of the abdomen and pelvis with intravenous contrast. Automated exposure control was utilized for the study. A dose lowering technique was utilized adhering to the principles of ALARA. CONTRAST: Patient received 90ML OPTIRAY 320 of IV contrast COMPARISON: 01/12/2023 FINDINGS: Lung bases: Lung bases demonstrate bilateral dependent atelectasis. ABDOMEN: Liver: Prominent portal varicosities within the left upper quadrant of unclear etiology as the splenic vein and portal vein appear patent. Additionally, there is no definite imaging evidence of cirrhosis as the cause of the portal varicosities. Gallbladder and bile ducts: Gallbladder has been removed. No ductal dilation. Pancreas: Chronic calcific pancreatitis. Pancreas is atrophic with dilated pancreatic duct measuring up to 0.8 cm. Spleen: Unremarkable. No splenomegaly. Adrenals: Unremarkable. No mass. Kidneys and ureters: Unremarkable. No solid mass. No hydronephrosis. Stomach and bowel: Unremarkable. No obstruction. No mucosal thickening. PELVIS: Appendix: Appendix is not identified but there are no secondary signs of acute appendicitis. Bladder: Unremarkable. No mass. Reproductive: Unremarkable as visualized. ABDOMEN and PELVIS: Intraperitoneal space: Unremarkable. No free air. No significant fluid collection. Bones/joints: No acute fracture. No dislocation. Soft tissues: Unremarkable. Vasculature: Unremarkable. No abdominal aortic aneurysm. Lymph nodes: Unremarkable. No enlarged lymph nodes. IMPRESSION: 1. No evidence of acute abdominal or pelvic process. 2. Chronic calcific pancreatitis with atrophic pancreas and dilated pancreatic duct measuring up to 0.8 cm. No pseudocyst formation is identified. Electronically signed by: Mich Kan M.D. 01/16/23 00:13 AM
[2023-01-16] MEDS ORDERED: SUCRALFATE 1 GM/10 ML UDC PO STA (00:52)
[2023-01-16] MEDS ORDERED: DEXTROSE 50% 50 ML SYRINGE IV PRN (05:04)
[2023-01-16] MEDS ORDERED: ONDANSETRON INJ 2 MG/ML 2 ML VIAL IV PRN (05:04)
[2023-01-16] MEDS ORDERED: GLUCAGON FOR INJ 1 MG VIAL SQ PRN (05:04)
[2023-01-16] MEDS ORDERED: Ativan IV Alcohol Withdrawal--Active Protocol IV PRN (05:04)
[2023-01-16] MEDS ORDERED: GABAPENTIN 1200MG ALCOHOL WITHDRAWAL LOAD PO STA (05:04)
[2023-01-16] MEDS ORDERED: oxyCODONE HCL IR 5 MG TAB (IMMEDIATE RELEASE) PO PRN (05:04)
[2023-01-16] MEDS ORDERED: LORazepam 2 MG/1 ML VIAL IV PRN ×3 (05:04)
[2023-01-16] MEDS ORDERED: CARBOHYDRATES FOR HYPOGLYCEMIA PO PRN (05:04)
[2023-01-16] MEDS ORDERED: GLUCOSE 10 TAB/TUBE PO PRN (05:04)
[2023-01-16] MEDS ORDERED: GLUCOSE 40% GEL 15 GM TUBE PO PRN (05:04)
[2023-01-16] MEDS ORDERED: CEROVITE ADV FORMULA TAB PO STA (05:20)
[2023-01-16] MEDS ORDERED: GABAPENTIN 600 MG TAB PO ONE (05:30)
[2023-01-16] MEDS ORDERED: THIAMINE HCL 100 MG, FOLIC ACID 1 MG in SODIUM CHLORIDE 0.9% 1000ML 1,000 ML IV SCH (05:30)
[2023-01-16] MEDS ORDERED: SODIUM CHLORIDE 0.9% 1000ML 1,000 ML IV SCH (06:00)
[2023-01-16 07:24] LABS: Basophils # (auto) 0.05 K/uL (0-0.2); Basophils % (auto) 1.3 %; Eosinophils # (auto) 0.32 K/uL (0-0.50); Eosinophils % (auto) 8.5 %; Hematocrit (blood only) 39.2 % (42.0-52.0); Hemoglobin 13.9 g/dl (14.0-18.0); Immature Granulocytes # (auto) 0.01 K/uL (0.01-0.20); Immature Granulocytes % (auto) 0.3 %; Lymphocytes # (auto) 1.41 K/uL (1.2-3.4); Lymphocytes % (auto) 37.6 %; Mean Corpuscular Hemoglobin 32.9 pg (25.0-34.0); Mean Corpuscular Hgb Conc 35.5 g/dL (32.0-36.0); Mean Corpuscular Volume 92.7 fL (80.0-100.0); Monocytes # (auto) 0.32 K/uL (0.11-0.59); Monocytes % (auto) 8.5 %; Neutrophils # (auto) 1.64 K/uL (1.40-6.50); Neutrophils % (auto) 43.8 %; Platelet Count 146 K/uL (130-400); RDW Coefficient of Variation 11.4 % (11.5-14.5); RDW Standard Deviation 38.7 fL (36.4-46.3); Red Blood Count 4.23 M/uL (4.70-6.10); White Blood Count 3.75 K/ul (4.8-10.8)
--- NOTE | 2023-01-16 07:45 | History and Physical Report ---
DATE OF ADMISSION: 01/16/2023. CHIEF COMPLAINT: Abdominal pain. HISTORY OF PRESENT ILLNESS: This is a 47-year-old male with past medical history significant for chronic alcohol abuse, ongoing alcoholism, chronic pancreatitis, GERD, Renae's esophagus, ADD, mood disorder, diabetes, insulin requiring; history of PE, recurrent DVT, on Eliquis; history of chronic pain, history of narcotic abuse as per records, terminated medication agreement; multiple admissions for alcohol abuse and abdominal pain and chronic pancreatitis, recently was in the hospital in the first week of January. At that time, he was found to be intoxicated outside of the local gas station and at that time, he was found to have small-bowel obstruction, improved with conservative management, history of appendectomy and cholecystectomy. At that time he also had mild DKA, did okay and got discharged, now comes back with abdominal pain. His CT scan of the abdomen and pelvis was done not showing acute pancreatitis. Received Ativan in the ER and somewhat drowsy.. He says on and off he has some chest pain, no shortness of breath, on and off cough,afebrile. Denies any headache. No blurred visions. Complains of abdominal pain. No diarrhea. Hemodynamically stable. ALLERGIES: No known drug allergies. PAST MEDICAL HISTORY: As mentioned above. PAST SURGICAL HISTORY: EGDs, EGD with endoscopic ultrasound, lumbar fusion surgery. MEDICATIONS: The patient is on amitriptyline 50 mg p.o. at bedtime, Creon 1 capsule p.o. t.i.d., Eliquis 5 mg p.o. b.i.d., folic acid 1 mg p.o. a.m., glipizide 5 mg p.o. daily, Lantus 8 units subcutaneous at bedtime, multivitamin 1 tablet daily, oxycodone 5 mg p.o. q. 8 hours p.r.n. for pain, Protonix 40 mg p.o. daily, thiamine 100 mg p.o. daily. FAMILY HISTORY: Significant for father had alcohol abuse. SOCIAL HISTORY: Former smoker, drinking alcohol, no substance abuse. REVIEW OF SYSTEMS: Could not get complete review of systems as the patient is very drowsy. PHYSICAL EXAMINATION: GENERAL: The patient is drowsy, not in acute distress. VITAL SIGNS: Temperature 36.5, pulse 95, respiratory rate 16, blood pressure 112/75, oxygen 93% on room air. HEENT: Pupils equal, round and reactive to light. Oral mucosa moist. NECK: No JVD, no neck masses. CARDIOVASCULAR: S1 and S2 heard. Regular rate and rhythm. No murmur, no gallop. RESPIRATORY SYSTEM: Normal AP diameter. No accessory muscle use. No wheezing, no crackles. ABDOMEN: Soft, bowel sounds present. No distention. Mild discomfort. CENTRAL NERVOUS SYSTEM: Drowsy, but arousable, answers simple questions. Obeys simple commands. Moves extremities. EXTREMITIES: No edema, no erythema. LABORATORY DATA: WBC 5.7, hemoglobin 14.2, hematocrit 39.9, platelets 178. PT 11.4, INR 1. Sodium 131, potassium 4, chloride 99, CO2 of 21, BUN 7, creatinine of 0.79, serum glucose 370, calcium 9.5, total bilirubin 0.4, direct bilirubin 0.1, AST 15, ALT 21, alkaline phosphatase 80. Troponin high sensitivity less than 2.3, lipase 15. Urinalysis negative. Ethyl alcohol 330. SARS-CoV-2 rapid test negative. IMAGING DATA: CT abdomen and pelvis with IV contrast shows no evidence of acute abdominal or pelvic process. Chronic calcific pancreatitis with atrophic pancreas and dilated pancreatic duct measuring up to 0.8 cm. No pseudocyst formation is identified. EKG: Sinus tachycardia at a rate of 101, no significant change was found. ASSESSMENT AND PLAN: This is a 47-year-old male who presents with alcoholism, abdominal pain. 1. Alcoholism. Alcohol abuse Multiple admissions .Will do alcohol withdrawal protocol with gabapentin and IV Ativan p.r.n., banana bag, and place on p.o. thiamine, and p.o. folic acid. Closely monitor for withdrawal. Social service to help with discharge planning, may need to go to the alcohol rehabilitation. 2. Abdominal pain. History of chronic pancreatitis. CT scan of the abdomen no acute findings. We will monitor, n.p.o., IV fluids. The patient has history of narcotic abuse. We will try to avoid narcotics. 3. Hyperglycemia, diabetes. We will hold his glipizide. We will continue his Lantus and we will continue insulin sliding scale. Follow the blood sugars closely. Follow HbA1c levels. 4. History of deep venous thrombosis and pulmonary embolism. On Eliquis. 5. Gastroesophageal reflux disease, Renae's esophagus: Continue PPI. 6. History of ADD, mood disorder. Continue home medications. 7. Deep venous thrombosis prophylaxis. On Eliquis. DISPOSITION: Admit to med tele. PT/OT prior to discharge. Social service to help with discharge planning. Level 1 full code. Job ID: [id number] MTDD
[2023-01-16 07:55] LABS: BUN Creatinine Ratio 6.8 (10-20); Calcium 8.7 mg/dl (8.6-10.3); Creatinine Clr Calc Pharmacy 166.2 ml/min; Est GFR (African American) 137.8 ml/min; Est GFR (Non-African American) 118.9 ml/min; Magnesium 1.7 mg/dl (1.7-2.4); Potassium 3.8 mmol/L (3.5-5.1)
[2023-01-16 08:33] LABS: Estimated Average Glucose 203 mg/dl; Hemoglobin A1C 8.7 % (4.5-5.6)
[2023-01-16] MEDS ORDERED: THIAMINE HCL 100 MG TAB PO SCH (09:00)
[2023-01-16] MEDS ORDERED: FOLIC ACID 1 MG TAB PO SCH ×2 (09:00)
[2023-01-16] MEDS ORDERED: MULTIVITAMIN TAB PO SCH (09:00)
[2023-01-16] MEDS ORDERED: APIXABAN 5 MG TABLET PO SCH (09:00)
[2023-01-16] MEDS ORDERED: PANTOprazole 40 MG TAB PO SCH (09:00)
[2023-01-16] MEDS: INSULIN ASPART PER UNIT CHARGE SC SCH ×2 (09:37→13:13)
[2023-01-16] MEDS ORDERED: GABAPENTIN 600 MG TAB PO SCH (12:00)
[2023-01-16 12:06] VITALS: BP 96/63; PULSE 90; TEMP 97.9; O2SAT 99
[2023-01-16] MEDS: PANCREAZE (LIPASE 10,500U) CAP PO SCH ×2 (13:11→13:13)
--- NOTE | 2023-01-16 15:02 | Hospitalist Progress Note ---
Date of Service January 16, 2023 Assessment & Plan (1) Abdominal pain, acute, epigastric: Plan: Patient is an 47 yr male who presents with alcoholism, abdominal pain. Alcohol use disorder Non compliant with recommendations Multiple admissions with Intoxication Alcohol level 330 Started on alcohol withdrawal protocol Continue thiamine, folic acid Currently not administering detox or rehab placement Not interested to quit drinking as well Refused psychiatry evaluation Chronic pain syndrome Chronic pancreatitis H/O narcotic abuse --CT ABd:No evidence of acute abdominal or pelvic process. Chronic calcific pancreatitis with atrophic pancreas and dilated pancreatic duct measuring up to 0.8 cm. No pseudocyst formation is identified. -- Lipase normal Avoid narcotics as able Tolerated regular diet Abdominal pain resolved Prefers to be discharged home today DM II Hypoglycemic on presentation HbA1c 8.7 Continue insulin while hospitalized Monitor blood glucose levels H/O DVT, PE On Eliquis. GERD Renae's esophagus Continue PPI H/O ADD Mood disorder Continue home medications DVT Px: On Eliquis. Code Status Full Code Admission and Anticipated Discharge Date Admission Date: January 16, 2023 Subjective Patient is seen and examined at bedside States having nausea earlier this morning but later resolved Tolerated regular diet Reports chronic abdominal pain Denies any chest pain, dyspnea, dizziness No other complaints Review of Systems Review of Systems: All systems reviewed & are unremarkable except as noted in Subjective Physical Exam Physical Exam: Physical Exam: Vitals signs as noted above General Appearance:Moderately built and nourished, no apparent distress Head: normocephalic, Atraumatic Eyes: normal inspection, EOMI Neck: supple, Trachea midline Respiratory/Chest: Normal breath sounds, CTA, No accessory muscle use Cardiovascular: S1, S2, No murmur Abdomen/GI:Soft, non tender, Bowel sounds present Extremities/Musculoskeletal:normal inspection, no edema Neurologic/Psych:AAOX3, grossly no focal neurological deficits Skin: normal color, warm Results & Data Results & Data Vital Signs (Past 12 Hours) Vital Signs Temp Pulse Pulse Resp BP BP Pulse Ox 01/16/23 12:05 36.6 C 90 18 96/63 L 99 01/16/23 07:53 36.5 C 89 18 104/70 98 01/16/23 04:58 91 H 01/16/23 05:04 36.6 C 96 H 20 114/76 97 01/16/23 05:07 36.6 C 97 H 16 114/76 97 01/16/23 04:30 98 H 13 01/16/23 04:00 97 H 20 121/78 93 01/16/23 03:13 93 H 01/16/23 03:53 95 H 16 93 O2 Del Method 01/16/23 12:05 Room Air 01/16/23 07:53 Room Air 01/16/23 04:58 01/16/23 05:04 Room Air 01/16/23 05:07 Room Air 01/16/23 04:30 01/16/23 04:00 01/16/23 03:13 01/16/23 03:53 Room Air Laboratory Results Short CBC 01/15/23 01/16/23 Range/Units 21:15 07:03 WBC 5.70 3.75 L (4.8-10.8) K/ul Hgb 14.2 13.9 L (14.0-18.0) g/dl Hct 39.9 L 39.2 L (42.0-52.0) % Plt Count 178 146 (130-400) K/uL BMP 01/15/23 01/16/23 21:15 07:03 Sodium 131 L 142 D Potassium 4.0 3.8 Chloride 99 111 H Carbon Dioxide 21 25 BUN 7 4 L Creatinine 0.79 0.59 L Glucose 370 H* 152 H Calcium 9.5 8.7 Liver Function 01/15/23 Range/Units 21:15 Total Bilirubin 0.4 (0.2-1.0) mg/dl Direct Bilirubin 0.1 (0-0.2) mg/dl AST 15 (13-39) U/L ALT 21 (7-52) U/L Alkaline Phosphatase 80 (34-104) U/L Albumin 3.9 (3.4-5.0) gm/dl Urine 01/15/23 Range/Units 21:22 Urine Color Yellow Urine Appearance Clear (Clear) Urine pH 6.0 (4.5-7.5) Ur Specific [place] 1.008 (1.000-1.030) Urine Protein Negative (Negative) Urine Glucose (UA) 3+ H (Negative)
--- NOTE | 2023-01-16 15:27 | Discharge Summary ---
Date of Service January 16, 2023 Admission HPI Per Admitting Provider CHIEF COMPLAINT: Abdominal pain. HISTORY OF PRESENT ILLNESS: This is a 47-year-old male with past medical history significant for chronic alcohol abuse, ongoing alcoholism, chronic pancreatitis, GERD, Renae's esophagus, ADD, mood disorder, diabetes, insulin requiring; history of PE, recurrent DVT, on Eliquis; history of chronic pain, history of narcotic abuse as per records, terminated medication agreement; multi ple admissions for alcohol abuse and abdominal pain and chronic pancreatitis, recently was in the hospital in the first week of January. At that time, he was found to be intoxicated outside of the local gas station and at that time, he was found to have small-bowel obstruction, improved with conservative management, history of appendectomy and cholecystectomy. At that time he also had mild DKA, did okay and got discharged, now comes back with abdominal pain. His CT scan of the abdomen and pelvis was done not showing acute pancreatitis. Received Ativan in the ER and somewhat drowsy.. He says on and off he has some chest pain, no shortness of breath, on and off cough,afebrile. Denies any headache. No blurred visions. Complains of abdominal pain. No diarrhea. Hemodynamically stable. Admission Exam Per Admitting Provider PHYSICAL EXAMINATION: GENERAL: The patient is drowsy, not in acute distress. VITAL SIGNS: Temperature 36.5, pulse 95, respiratory rate 16, blood pressure 112/75, oxygen 93% on room air. HEENT: Pupils equal, round and reactive to light. Oral mucosa moist. NECK: No JVD, no neck masses. CARDIOVASCULAR: S1 and S2 heard. Regular rate and rhythm. No murmur, no gallop. RESPIRATORY SYSTEM: Normal AP diameter. No accessory muscle use. No wheezing, no crackles. ABDOMEN: Soft, bowel sounds present. No distention. Mild discomfort. CENTRAL NERVOUS SYSTEM: Drowsy, but arousable, answers simple questions. Obeys simple commands. Moves extremities. EXTREMITIES: No edema, no erythema. Principal Diagnosis Alcohol intoxication Chronic pancreatitis Chronic pain syndrome H/O narcotic abuse Discharge Data Allergies Allergy/AdvReac Type Severity Reaction Status Date / Time No Known Allergies Allergy Verified 01/06/23 23:11 Consultations 01/16/23 00:54 ED Decision to Admit Stat Procedures Performed Laboratory Results WBC 3.75 K/ul (4.8-10.8) L 01/16/23 07:03 RBC 4.23 M/uL (4.70-6.10) L 01/16/23 07:03 Hgb 13.9 g/dl (14.0-18.0) L 01/16/23 07:03 Hct 39.2 % (42.0-52.0) L 01/16/23 07:03 MCV 92.7 fL (80.0-100.0) 01/16/23 07:03 MCH 32.9 pg (25.0-34.0) 01/16/23 07:03 MCHC 35.5 g/dL (32.0-36.0) 01/16/23 07:03 RDW Std Deviation 38.7 fL (36.4-46.3) 01/16/23 07:03 RDW Coeff of Gucci 11.4 % (11.5-14.5) L 01/16/23 07:03 Plt Count 146 K/uL (130-400) 01/16/23 07:03 MPV 9.0 fL (9.4-12.4) L 01/16/23 07:03 Immature Gran % (Auto) 0.3 % 01/16/23 07:03 Neut % (Auto) 43.8 % 01/16/23 07:03 Lymph % (Auto) 37.6 % 01/16/23 07:03 [place] % (Auto) 8.5 % 01/16/23 07:03 Eos % (Auto) 8.5 % 01/16/23 07:03 Baso % (Auto) 1.3 % 01/16/23 07:03 Neut # (Auto) 1.64 K/uL (1.40-6.50) 01/16/23 07:03 Lymph # (Auto) 1.41 K/uL (1.2-3.4) 01/16/23 07:03 [place] # (Auto) 0.32 K/uL (0.11-0.59) 01/16/23 07:03 Eos # (Auto) 0.32 K/uL (0-0.50) 01/16/23 07:03 Baso # (Auto) 0.05 K/uL (0-0.2) 01/16/23 07:03 Immature Gran # (Auto) 0.01 K/uL (0.01-0.20) 01/16/23 07:03 PT 11.4 Seconds (9.0-12.0) 01/15/23 21:15 INR 1.0 (0.9-1.1) 01/15/23 21:15 Sodium 142 mmol/L (136-145) D 01/16/23 07:03 Potassium 3.8 mmol/L (3.5-5.1) 01/16/23 07:03 Chloride 111 mmol/L (98-107) H 01/16/23 07:03 Carbon Dioxide 25 mmol/L (21-32) 01/16/23 07:03 Anion Gap 6 (3-11) 01/16/23 07:03 BUN 4 mg/dl (6-23) L 01/16/23 07:03 Creatinine 0.59 mg/dl (0.6-1.4) L 01/16/23 07:03 Est Cr Clr Drug Dosing 166.2 ml/min 01/16/23 07:03 Est GFR ( Amer) 137.8 ml/min 01/16/23 07:03 Est GFR (Non-Af Amer) 118.9 ml/min 01/16/23 07:03 BUN/Creatinine Ratio 6.8 (10-20) L 01/16/23 07:03 Glucose 152 mg/dl (70-99(Fasting)) H 01/16/23 07:03 POC Glucose 117 mg/dl (70-99) H 01/16/23 11:37 Estimat Average Glucose 203 mg/dl 01/16/23 07:03 Hemoglobin A1c 8.7 % (4.5-5.6) H 01/16/23 07:03 Calcium 8.7 mg/dl (8.6-10.3) 01/16/23 07:03 Magnesium 1.7 mg/dl (1.7-2.4) 01/16/23 07:03 Total Bilirubin 0.4 mg/dl (0.2-1.0) 01/15/23 21:15 Direct Bilirubin 0.1 mg/dl (0-0.2) 01/15/23 21:15 AST 15 U/L (13-39) 01/15/23 21:15 ALT 21 U/L (7-52) 01/15/23 21:15 Alkaline Phosphatase 80 U/L (34-104) 01/15/23 21:15 Troponin I High Sens < 2.3 pg/ml (0-20) 01/15/23 21:15 Total Protein 7.1 gm/dl (6.0-8.3) 01/15/23 21:15 Albumin 3.9 gm/dl (3.4-5.0) 01/15/23 21:15 Globulin 3.2 gm/dl (2.5-4.0) 01/15/23 21:15 Albumin/Globulin Ratio 1.2 (0.9-2) 01/15/23 21:15 Lipase 15 U/L (11-82) 01/15/23 21:15 Urine Color Yellow 01/15/23 21:22 Urine Appearance Clear (Clear) 01/15/23 21:22 Urine pH 6.0 (4.5-7.5) 01/15/23 21:22 Ur Specific [place] 1.008 (1.000-1.030) 01/15/23 21:22 Urine Protein Negative (Negative) 01/15/23 21:22 Urine Glucose (UA) 3+ (Negative) H 01/15/23 21:22 Urine Ketones Negative (Negative) 01/15/23 21:22 Urine Blood Negative (Negative) 01/15/23 21:22 Urine Nitrite Negative (Negative) 01/15/23 21:22 Urine Bilirubin Negative (Negative) 01/15/23 21:22 Urine Urobilinogen Negative (Negative) 01/15/23 21:22 Ur Leukocyte Esterase Negative (Negative) 01/15/23 21:22 Ethyl Alcohol mg/dL 330.4 mg/dl (<10.0) H 01/15/23 21:15 SARS-CoV-2, RNA, NAAT NEGATIVE (NEGATIVE) 01/16/23 01:46 Impressions Abdomen/Pelvis CT 01/15/23 22:40 Exam(s): CT ABDOMEN + PELVIS With Contrast IV Amt: 90ML OPTIRAY 320 EXAM: CT Abdomen and Pelvis With Intravenous Contrast CLINICAL HISTORY: Reason for exam: abd pain, chronic pancreatitis. TECHNIQUE: Axial computed tomography images of the abdomen and pelvis with intravenous contrast. Automated exposure control was utilized for the study. A dose lowering technique was utilized adhering to the principles of ALARA. CONTRAST: Patient received 90ML OPTIRAY 320 of IV contrast COMPARISON: 01/12/2023 FINDINGS: Lung bases: Lung bases demonstrate bilateral dependent atelectasis. ABDOMEN: Liver: Prominent portal varicosities within the left upper quadrant of unclear etiology as the splenic vein and portal vein appear patent. Additionally, there is no definite imaging evidence of cirrhosis as the cause of the portal varicosities. Gallbladder and bile ducts: Gallbladder has been removed. No ductal dilation. Pancreas: Chronic calcific pancreatitis. Pancreas is atrophic with dilated pancreatic duct measuring up to 0.8 cm. Spleen: Unremarkable. No splenomegaly. Adrenals: Unremarkable. No mass. Kidneys and ureters: Unremarkable. No solid mass. No hydronephrosis. Stomach and bowel: Unremarkable. No obstruction. No mucosal thickening. PELVIS: Appendix: Appendix is not identified but there are no secondary signs of acute appendicitis. Bladder: Unremarkable. No mass. Reproductive: Unremarkable as visualized. ABDOMEN and PELVIS: Intraperitoneal space: Unremarkable. No free air. No significant fluid collection. Bones/joints: No acute fracture. No dislocation. Soft tissues: Unremarkable. Vasculature: Unremarkable. No abdominal aortic aneurysm. Lymph nodes: Unremarkable. No enlarged lymph nodes. IMPRESSION: 1. No evidence of acute abdominal or pelvic process. 2. Chronic calcific pancreatitis with atrophic pancreas and dilated pancreatic duct measuring up to 0.8 cm. No pseudocyst formation is identified. Electronically signed by: Mich Kan M.D. 01/16/23 00:13 AM Ordered Studies 01/15/23 22:40 CT abd pelvis IV con only Stat Hospital Course (1) Abdominal pain, acute, epigastric: Patient is an 47 yr male who presents with alcoholism, abdominal pain. Alcohol use disorder Non compliant with recommendations Multiple admissions with Intoxication Alcohol level 330 Started on alcohol withdrawal protocol Continue thiamine, folic acid Currently not administering detox or rehab placement Not interested to quit drinking as well Refused psychiatry evaluation Chronic pain syndrome Chronic pancreatitis H/O narcotic abuse --CT ABd:No evidence of acute abdominal or pelvic process. Chronic calcific pancreatitis with atrophic pancreas and dilated pancreatic duct measuring up to 0.8 cm. No pseudocyst formation is identified. -- Lipase normal Avoid narcotics as able Tolerated regular diet Abdominal pain resolved Prefers to be discharged home today DM II Hypoglycemic on presentation HbA1c 8.7 Continue insulin while hospitalized Monitor blood glucose levels H/O DVT, PE On Eliquis. GERD Renae's esophagus Continue PPI H/O ADD Mood disorder Continue home medications DVT Px: On Eliquis. Code Status Full Code Total Time Total Time Spent Total Time Spent (In Minutes): 56 minutes Discharge Plan Discharge Items Patient Disposition: Home - Self-Care Reason For Visit: ABDOMINAL PAIN Discharge Diagnosis: Alcohol intoxication Chronic pancreatitis Activity: Per Instructions section Non-emergency contact: Primary Care Provider Call non-emergency contact if: you have any medication questions and your symptoms worsen Follow-up/Referrals: Dhiraj Myers DO [Primary Care Provider] - (Date & Time 01/19/2023 11:00 AM Provider Brandie Galvez DO Department [facility] ) Diet: Carb Consistent or DM2 and Heart Healthy Addtl Attending Provider Instructions: Follow-up with your primary care physician in 1 week as advised --- Quit drinking alcohol as advised Seek immediate medical attention if your symptoms reoccur or worsen Please take all medications as instructed on discharge list below. Please call if you have any questions or problems. You can reach a [facility] hospitalist on duty at [facility] 24 hours a day by calling [phone] Pending Studies at Discharge: No Stand-Alone Forms: My [facility], Smoking Cessation Medications and DC Order Prescriptions: Continued Eliquis 5 mg tablet 5 mg PO BID Creon 24,000-76,000 -120,000 unit capsule,delayed release(DR/EC) 1 cap PO TID Qty: 90 0RF Rx Instructions: administer with meals and/or snacks glipizide 5 mg tablet extended release 24hr 5 mg PO DAILY amitriptyline 50 mg tablet 50 mg PO HS pantoprazole 40 mg tablet,delayed release (DR/EC) 40 mg PO DAILY insulin glargine [Lantus Solostar U-100 Insulin] 100 unit/mL (3 mL) insulin pen 18 unit subcut HS folic acid 1 mg Tablet 1 mg PO QAM Qty: 30 0RF multivitamin with folic acid [Daily-Chriss (with folic acid)] 400 mcg Tablet 1 tab PO QAM Qty: 30 0RF thiamine HCl (vitamin B1) 100 mg Tablet 100 mg PO QAM 15 Days Qty: 15 0RF oxycodone 5 mg Tablet 5 mg PO Q8H PRN (Reason: pain (scale score 7-10)) Qty: 9 0RF Discharge Orders: Discharge Order (Routine); Ordered 01/16/23 Ordered By: Jon Bowden/Other Patient Handouts: A1C, High Blood Sugar (Hyperglycemia) Admission Data Admit Date/Time: 01/16/23 03:46 Attending Provider: Jon Luis Admit Provider: Jed Sousa Primary Care Provider: Dhiraj Myers Other Providers: Jed Sousa
--- NOTE | 2023-01-16 16:38 | Electrocardiogram Report ---
Test Reason : Blood Pressure : / mmHG Vent. Rate : 101 BPM Atrial Rate : 101 BPM P-R Int : 156 ms QRS Dur : 074 ms QT Int : 336 ms P-R-T Axes : 068 058 053 degrees QTc Int : 435 ms Sinus tachycardia Otherwise normal ECG When compared with ECG of 12-JAN-2023 20:24, No significant change was found Confirmed by Danilo Grimes ([id number]) on 01/16/2023 4:38:40 PM Referred By: REFERRED SELF Confirmed By:Jere Grimes
[2023-01-16] MEDS ORDERED: AMITRIPTYLINE HCL 50 MG TAB PO SCH (21:00)
[2023-01-16] MEDS ORDERED: LANTUS PER UNIT CHARGE SC SCH (21:00)
[2023-01-17] MEDS ORDERED: GABAPENTIN 600 MG TAB PO SCH (02:00)
[2023-01-18] MEDS ORDERED: GABAPENTIN 600 MG TAB PO SCH (06:00)
[2023-01-19] MEDS ORDERED: GABAPENTIN 600 MG TAB PO SCH (18:00)
== END 2023-01-16 16:44 | disposition home or self-care (01) | DRG 440 ==
LOC: ED 21:06 → SUATTDRO 01-16 03:46 → 2S 01-16 03:46

== ENCOUNTER 2023-01-17 21:14 | Inpatient (IN) ==
[2023-01-17] MEDS ORDERED: SODIUM CHLORIDE 0.9% 1000ML 1,000 ML IV STA (21:35)
[2023-01-17] MEDS ORDERED: ONDANSETRON INJ 2 MG/ML 2 ML VIAL IV STA (21:58)
[2023-01-17] MEDS ORDERED: MoRPHine SULFATE 4 MG/ML 1 ML CARP\\VIAL IV STA ×3 (21:58→23:46)
--- NOTE | 2023-01-17 21:59 | Emergency Department Note ---
Impression & Plan Epigastric abdominal pain ADMIT ED Provider Note HPI: The patient is a 47-year-old male who presents emergency department with chief complaint of abdominal pain. Patient has a history of alcohol abuse and recurrent pancreatitis. Patient states his abdominal pain has been worsening throughout the day, states it feels similar episodes of pancreatitis he has had in the past. On arrival here to the ED the patient is tachycardic but otherwise hemodynamically stable. ROS: - Per HPI *Outpatient medications and allergy history reviewed. *Pertinent external medical records reviewed. PE: General: Alert HEENT: Normocephalic, trachea midline Eyes: Extraocular eye movement is intact, no scleral erythema Pulmonary: Clear to auscultation bilaterally, no wheezing Cardio: Tachycardic rate with regular rhythm GI: Abdomen is soft to palpation, there is tenderness over the epigastric area to palpation without guarding or rigidity : No suprapubic tenderness MSK: No evidence of trauma or malformation of the extremities, no edema Skin: No evidence of rash Neuro: Alert, no focal deficits Psychiatric: Cooperative cardiac monitor: (As interpreted by myself): - An order was placed for continuous cardiac monitoring - Patient was noted to be in sinus rhythm with a rate of 111 Interventions provided in ED: -IV morphine, IV Zofran, IV fluid bolus Differential Diagnosis: Acute on chronic pancreatitis, acid reflux/gastritis, small bowel obstruction, acute cholecystitis, amongst other potential pathologies. Medical Decision Making: Patient presented to the emergency department with acute on chronic abdominal pain. IV was established and lab work obtained, patient was maintained on nurse monitoring. He was given IV fluid bolus as well as multiple rounds of IV morphine for pain control. He was given IV Zofran. Upon review of the patient' s chart he has had multiple CT scans just this month, he does have some tenderness over the epigastric area but he has not had any vomiting here, low suspicion for small bowel obstruction as he has previously had issues with, I do feel this likely represents acute on chronic pancreatitis and therefore repeat CT imaging of the abdomen pelvis was not ordered. Lab work was obtained and shows mild leukopenia at 4.4, hemoglobin is normal at 14.6, platelet count is within normal limits, CMP shows mild hyponatremia 134, glucose is elevated at 309 without any elevation in anion gap and serum bicarbonate level is within normal limits at 24. Lipase is noted to be normal at 15. No transaminitis, aliya irubin is normal. Urinalysis shows 3+ glucose but no evidence of infection. COVID-19 testing is negative. On my reassessment, patient states his pain is still not well controlled despite multiple rounds of morphine. He is requesting inpatient admission. Case was discussed with the on-call hospitalist for [facility], Dr. Sousa, and the patient was placed for admission in stable condition. Consultants: Hospitalist, Dr. Sousa Disposition discussion held by myself with: Patient Diagnosis: 1. Acute on chronic pancreatitis 2. Hyponatremia, acute, mild 3. Hyperglycemia without DKA 4. Glucosuria 5. Leukopenia, acute, mild Disposition: Admission Radu Alvarez DO Emergency Medicine Past Med/Surg History Medical History Abdominal pain Abdominal pain Abdominal pain, acute, epigastric Acute hyperglycemia Alcohol abuse (Unknown) Alcohol abuse Alcohol abuse Alcohol withdrawal Alcoholic ketosis Renae's esophagus (Unknown) "per EGD 11/23/09 " On 05/31/11 09:06 Martinez Jose wrote "per EGD 11/23/09 " Chest pain COVID-19 Depression Depression DM type 2 (diabetes mellitus, type 2) Encounter for alcohol abuse counseling and surveillance Encounter for pre-operative examination Encounter for tobacco use cessation counseling H/O acute pancreatitis "recurrent" History of substance abuse Hyperglycemia Intentional drug overdose Lumbar degenerative disc disease Mood disorder Mood disorder Nausea & vomiting Neuropathy Pancreatic duct stones Pancreatitis Panic disorder Pulmonary embolism on chronic apixaban Retrosternal chest pain Suicidal ideation Suicidal ideation Suicide attempt Surgical History H/O esophagogastroduodenoscopy "EGD 11/23/2009- mild gastritis, suspicious for gastroparesis, Z-line irregular EUS 02/04/2010- mild chronic pancreatitis, pronounced cholesterolosis of gallbladder, no biliary dilation or stones, probable gastroparesis EGD 10/31/2014- gastritis" S/P lumbar fusion L4-S1 2014 Family History Father Alcohol abuse Social History Smoking Status: Never smoker Tobacco Type: Smokeless Tobacco (Dip or Chew) Second Hand Exposure: No; Do You Dip or Chew Tobacco: Yes; Hx Alcohol Use: Yes Alcohol type: beer Hx Substance Use: No Preferred Language: German Communication Ability: Effective [facility] Specialist Required: No Beliefs That Will Affect Care: None marital status: Current Living Situation: Other Current Living Situation Comment: Lives with his mom How many Children do You have: 3 Feels Safe at Home: Yes Assistive Devices: None Allergies Allergies Allergy/AdvReac Type Severity Reaction Status Date / Time No Known Allergies Allergy Verified 01/06/23 23:11 Home Meds Home Medications Medication Instructions Recorded Confirmed apixaban 5 mg tablet (Eliquis) 5 mg PO BID 08/17/22 01/17/23 amitriptyline 50 mg tablet 50 mg PO HS 01/03/23 01/17/23 glipizide 5 mg tablet, extended 5 mg PO DAILY 01/03/23 01/17/23 release 24 hr insulin glargine 100 unit/mL (3 18 unit subcut HS 01/03/23 01/17/23 mL) subcutaneous pen (Lantus Solostar U-100 Insulin) pantoprazole 40 mg tablet,delayed 40 mg PO DAILY 01/03/23 01/17/23 release Previous Rx's Medication Instructions Recorded [id number] 1 cap PO TID #90 caps 12/21/22 24,000-76,000-120,000 unit capsule,delayed rel (Creon) folic acid 1 mg tablet 1 mg PO QAM #30 tabs 01/05/23 multivitamin with folic acid 400 1 tab PO QAM #30 tabs 01/05/23 mcg tablet (Daily-Chriss (with folic acid)) oxycodone 5 mg tablet 5 mg PO Q8H PRN pain (scale score 01/05/23 7-10) #9 tabs thiamine HCl (vitamin B1) 100 mg 100 mg PO QAM 15 days #15 tabs 01/05/23 tablet Results & Data (ED) Vital Signs Vital Signs - 24 hr 01/17/23 21:20 01/17/23 21:38 01/17/23 23:13 Temperature 37.7 C H Temperature Source Oral Pulse Rate 111 H 110 H 102 H Pulse Rate from SpO2 Sensor Respiratory Rate 18 18 Blood Pressure 109/88 Blood Pressure Mean 95 Pulse Oximetry 99 98 Sepsis Recent Fever Within 48 Hours No Sepsis New/Unexplained Change in Mental Status No Sepsis Action Taken by Nursing No Action Required 01/17/23 21:27 01/17/23 21:30 01/17/23 22:00 Temperature Temperature Source Pulse Rate 108 H 110 H 107 H Pulse Rate from SpO2 Sensor 109 H 109 H 104 H Respiratory Rate 16 20 22 Blood Pressure 111/82 99/68 L Blood Pressure Mean 91 78 Pulse Oximetry 97 97 95 Sepsis Recent Fever Within 48 Hours Sepsis New/Unexplained Change in Mental Status Sepsis Action Taken by Nursing 01/17/23 22:30 01/17/23 23:00 Temperature Temperature Source Pulse Rate 105 H Pulse Rate from SpO2 Sensor 105 H 110 H Respiratory Rate 18 20 Blood Pressure 107/77 111/80 Blood Pressure Mean 87 90 Pulse Oximetry 97 100 Sepsis Recent Fever Within 48 Hours Sepsis New/Unexplained Change in Mental Status Sepsis Action Taken by Nursing Laboratory Data 01/17/23 21:53 01/17/23 21:53 Lab Results 01/17/23 01/17/23 01/17/23 Range/Units 21:53 21:53 21:55 WBC 4.44 L (4.8-10.8) K/ul RBC 4.46 L (4.70-6.10) M/uL Hgb 14.6 (14.0-18.0) g/dl Hct 40.5 L (42.0-52.0) % MCV 90.8 (80.0-100.0) fL MCH 32.7 (25.0-34.0) pg MCHC 36.0 (32.0-36.0) g/dL RDW Std Deviation 37.5 (36.4-46.3) fL RDW Coeff of Gucci 11.3 L (11.5-14.5) % Plt Count 171 (130-400) K/uL MPV 9.5 (9.4-12.4) fL Immature Gran % (Auto) 0.0 % Neut % (Auto) 50.9 % Lymph % (Auto) 34.7 % [place] % (Auto) 6.5 % Eos % (Auto) 7.2 % Baso % (Auto) 0.7 % Neut # (Auto) 2.26 (1.40-6.50) K/uL Lymph # (Auto) 1.54 (1.2-3.4) K/uL [place] # (Auto) 0.29 (0.11-0.59) K/uL Eos # (Auto) 0.32 (0-0.50) K/uL Baso # (Auto) 0.03 (0-0.2) K/uL Immature Gran # (Auto) 0.00 L (0.01-0.20) K/uL Sodium 134 L (136-145) mmol/L Potassium 4.1 (3.5-5.1) mmol/L Chloride 102 (98-107) mmol/L Carbon Dioxide 24 (21-32) mmol/L Anion Gap 8 (3-11) BUN 5 L (6-23) mg/dl Creatinine 0.68 (0.6-1.4) mg/dl Est Cr Clr Drug Dosing 158.3 ml/min Est GFR ( Amer) 130.0 ml/min Est GFR (Non-Af Amer) 112.1 ml/min BUN/Creatinine Ratio 7.4 L (10-20) Glucose 309 H* (70-99(Fasting)) mg/dl Calcium 9.1 (8.6-10.3) mg/dl Total Bilirubin 0.5 (0.2-1.0) mg/dl AST 15 (13-39) U/L ALT 16 (7-52) U/L Alkaline Phosphatase 69 (34-104) U/L Total Protein 6.6 (6.0-8.3) gm/dl Albumin 3.6 (3.4-5.0) gm/dl Globulin 3.0 (2.5-4.0) gm/dl Albumin/Globulin Ratio 1.2 (0.9-2) Lipase 15 (11-82) U/L Urine Color Urine Appearance (Clear) Urine pH (4.5-7.5) Ur Specific [place] (1.000-1.030) Urine Protein (Negative) Urine Glucose (UA) (Negative) Urine Ketones (Negative) Urine Blood (Negative) Urine Nitrite (Negative) Urine Bilirubin (Negative) Urine Urobilinogen (Negative) Ur Leukocyte Esterase (Negative) SARS-CoV-2, RNA, NAAT NEGATIVE (NEGATIVE) 01/17/23 Range/Units 22:05 WBC (4.8-10.8) K/ul RBC (4.70-6.10) M/uL Hgb (14.0-18.0) g/dl Hct (42.0-52.0) % MCV (80.0-100.0) fL MCH (25.0-34.0) pg MCHC (32.0-36.0) g/dL RDW Std Deviation (36.4-46.3) fL RDW Coeff of Gucci (11.5-14.5) % Plt Count (130-400) K/uL MPV (9.4-12.4) fL Immature Gran % (Auto) % Neut % (Auto) % Lymph % (Auto) % [place] % (Auto) % Eos % (Auto) % Baso % (Auto) % Neut # (Auto) (1.40-6.50) K/uL Lymph # (Auto) (1.2-3.4) K/uL [place] # (Auto) (0.11-0.59) K/uL Eos # (Auto) (0-0.50) K/uL Baso # (Auto) (0-0.2) K/uL Immature Gran # (Auto) (0.01-0.20) K/uL Sodium (136-145) mmol/L Potassium (3.5-5.1) mmol/L Chloride (98-107) mmol/L Carbon Dioxide (21-32) mmol/L Anion Gap (3-11) BUN (6-23) mg/dl Creatinine (0.6-1.4) mg/dl Est Cr Clr Drug Dosing ml/min Est GFR ( Amer) ml/min Est GFR (Non-Af Amer) ml/min BUN/Creatinine Ratio (10-20) Glucose (70-99(Fasting)) mg/dl Calcium (8.6-10.3) mg/dl Total Bilirubin (0.2-1.0) mg/dl AST (13-39) U/L ALT (7-52) U/L Alkaline Phosphatase (34-104) U/L Total Protein (6.0-8.3) gm/dl Albumin (3.4-5.0) gm/dl Globulin (2.5-4.0) gm/dl Albumin/Globulin Ratio (0.9-2) Lipase (11-82) U/L Urine Color Yellow Urine Appearance Clear (Clear) Urine pH 6.0 (4.5-7.5) Ur Specific [place] 1.006 (1.000-1.030) Urine Protein Negative (Negative) Urine Glucose (UA) 3+ H (Negative) Urine Ketones Negative (Negative) Urine Blood Negative (Negative) Urine Nitrite Negative (Negative) Urine Bilirubin Negative (Negative) Urine Urobilinogen Negative (Negative) Ur Leukocyte Esterase Negative (Negative) SARS-CoV-2, RNA, NAAT (NEGATIVE) Administered Medications Discontinued Medications Sodium Chloride (Nss 1000ml) 1,000 mls @ 999 mls/hr IV .Q1H1M STA Stop: 01/17/23 22:35 Last Admin: 01/17/23 22:17 Dose: 999 mls/hr Documented By: ERLINDA Morphine Sulfate (Morphine Sulfate 4 Mg/Ml 1 Ml Carp\\Vial) 4 mg IV NOW STA Stop: 01/17/23 21:59 Last Admin: 01/17/23 22:15 Dose: 4 mg Documented By: ERLINDA Morphine Sulfate (Morphine Sulfate 4 Mg/Ml 1 Ml Carp\\Vial) 4 mg IV NOW STA Stop: 01/17/23 23:02 Last Admin: 01/17/23 23:10 Dose: 4 mg Documented By: ERLINDA Morphine Sulfate (Morphine Sulfate 4 Mg/Ml 1 Ml Carp\\Vial) 4 mg IV NOW STA Stop: 01/17/23 23:47 Last Admin: 01/17/23 23:52 Dose: 4 mg Documented By: ERLINDA Ondansetron HCl (Ondansetron Inj 2 Mg/Ml 2 Ml Vial) 4 mg IV NOW STA Stop: 01/17/23 21:59 Last Admin: 01/17/23 22:15 Dose: 4 mg Documented By: ERLINDA Discharge Plan Visit Data Chief Complaint: Abdominal Pain Stated Complaint: ABDOMINAL PAIN, PANCREATITIS ED Provider: Radu Alvarez Discharge Problem: Epigastric abdominal pain Patient Disposition: Home - Self-Care Condition: Good Discharge Instructions Activity Restrictions/Additional Instructions: Please follow-up with your outpatient providers as discussed. Please return to the emergency department if you have any new or worsening symptoms. Forms Stand Alone Forms: My [facility], [facility] ([facility]3] Emergency Department, Important Visit Information Prescriptions Prescriptions: No Action Eliquis 5 mg tablet 5 mg PO BID Creon 24,000-76,000 -120,000 unit capsule,delayed release(DR/EC) 1 cap PO TID Qty: 90 0RF Rx Instructions: administer with meals and/or snacks glipizide 5 mg tablet extended release 24hr 5 mg PO DAILY amitriptyline 50 mg tablet 50 mg PO HS pantoprazole 40 mg tablet,delayed release (DR/EC) 40 mg PO DAILY insulin glargine [Lantus Solostar U-100 Insulin] 100 unit/mL (3 mL) insulin pen 18 unit subcut HS folic acid 1 mg Tablet 1 mg PO QAM Qty: 30 0RF multivitamin with folic acid [Daily-Chriss (with folic acid)] 400 mcg Tablet 1 tab PO QAM Qty: 30 0RF thiamine HCl (vitamin B1) 100 mg Tablet 100 mg PO QAM 15 Days Qty: 15 0RF oxycodone 5 mg Tablet 5 mg PO Q8H PRN (Reason: pain (scale score 7-10)) Qty: 9 0RF Referrals Referrals: Dhiraj Myers DO [Primary Care Provider] -
[2023-01-17 22:17] LABS: Appearance Urine Clear (Clear); Bilirubin Urine Negative (Negative); Blood Urine Negative (Negative); Color Urine Yellow; Glucose Urine UA 3+ (Negative); Ketones Urine Negative (Negative); Leukocyte Esterase Urine Negative (Negative); Nitrite Urine Negative (Negative); Protein Urine Negative (Negative); Specific Gravity Urine 1.006 (1.000-1.030); Urobilinogen Urine Negative (Negative)
[2023-01-17 22:25] LABS: Basophils # (auto) 0.03 K/uL (0-0.2); Basophils % (auto) 0.7 %; Eosinophils # (auto) 0.32 K/uL (0-0.50); Eosinophils % (auto) 7.2 %; Hematocrit (blood only) 40.5 % (42.0-52.0); Hemoglobin 14.6 g/dl (14.0-18.0); Lymphocytes # (auto) 1.54 K/uL (1.2-3.4); Lymphocytes % (auto) 34.7 %; Mean Corpuscular Hemoglobin 32.7 pg (25.0-34.0); Mean Corpuscular Volume 90.8 fL (80.0-100.0); Mean Platelet Volume 9.5 fL (9.4-12.4); Monocytes # (auto) 0.29 K/uL (0.11-0.59); Monocytes % (auto) 6.5 %; Neutrophils # (auto) 2.26 K/uL (1.40-6.50); Neutrophils % (auto) 50.9 %; Platelet Count 171 K/uL (130-400); RDW Coefficient of Variation 11.3 % (11.5-14.5); RDW Standard Deviation 37.5 fL (36.4-46.3); Red Blood Count 4.46 M/uL (4.70-6.10); White Blood Count 4.44 K/ul (4.8-10.8)
[2023-01-17 22:39] LABS: Albumin Globulin Ratio 1.2 (0.9-2); Albumin Level 3.6 gm/dl (3.4-5.0); BUN Creatinine Ratio 7.4 (10-20); Bilirubin,Total 0.5 mg/dl (0.2-1.0); Calcium 9.1 mg/dl (8.6-10.3); Creatinine Clr Calc Pharmacy 158.3 ml/min; Est GFR (Non-African American) 112.1 ml/min; Potassium 4.1 mmol/L (3.5-5.1); Total Protein 6.6 gm/dl (6.0-8.3)
[2023-01-18] MEDS ORDERED: MoRPHine SULFATE 4 MG/ML 1 ML CARP\\VIAL IV STA (01:13)
[2023-01-18] MEDS ORDERED: DEXTROSE 50% 50 ML SYRINGE IV PRN ×2 (02:20)
[2023-01-18] MEDS ORDERED: Ativan IV Alcohol Withdrawal--Active Protocol IV PRN (02:20)
[2023-01-18] MEDS ORDERED: GLUCOSE 40% GEL 15 GM TUBE PO PRN ×2 (02:20)
[2023-01-18] MEDS ORDERED: GABAPENTIN 1200MG ALCOHOL WITHDRAWAL LOAD PO STA (02:20)
[2023-01-18] MEDS ORDERED: GLUCAGON FOR INJ 1 MG VIAL SQ PRN ×2 (02:20)
[2023-01-18] MEDS ORDERED: MoRPHine SULFATE 4 MG/ML 1 ML CARP\\VIAL IV PRN (02:20)
[2023-01-18] MEDS ORDERED: NITROGLYCERIN SL 0.4 MG/TAB TAB SL PRN (02:20)
[2023-01-18] MEDS ORDERED: CARBOHYDRATES FOR HYPOGLYCEMIA PO PRN ×2 (02:20)
[2023-01-18] MEDS ORDERED: ACETAMINOPHEN 325 MG TAB PO PRN (02:20)
[2023-01-18] MEDS ORDERED: GLUCOSE 10 TAB/TUBE PO PRN ×2 (02:20)
[2023-01-18] MEDS ORDERED: ONDANSETRON INJ 2 MG/ML 2 ML VIAL IV PRN (02:20)
[2023-01-18] MEDS ORDERED: LORazepam 2 MG/1 ML VIAL IV PRN ×3 (02:20)
[2023-01-18] MEDS: SODIUM CHLORIDE 0.9% 1000ML 1,000 ML IV SCH ×4 (02:28→22:57)
[2023-01-18] MEDS ORDERED: GABAPENTIN 600 MG TAB PO ONE (02:30)
--- NOTE | 2023-01-18 02:33 | History and Physical Report ---
DATE OF ADMISSION: 01/18/2023. CHIEF COMPLAINT: Abdominal pain. HISTORY OF PRESENT ILLNESS: This is a 47-year-old male with past medical history significant for chronic alcohol abuse, ongoing alcoholism, chronic pancreatitis, GERD, Renae's esophagus, add mood disorder, diabetes, insulin requiring; history of PE, recurrent, on Eliquis, history of chronic pain, history of narcotic abuse, as per records, terminated medication agreement, multiple recurrent admissions for alcohol abuse and abdominal pain and chronic pancreatitis. He was admitted on 01/16/2023 for abdominal pain and got discharged on 01/16/2023. Again, comes back with abdominal pain. He has nausea and vomiting, vomited 3 times some food materials. He states his stools are some pinkish orange color and float in the water. Severe abdominal pain, requiring several morphine doses in the ER requests for one more dose now. Denies any fevers or chills. No headache, no blurred visions, no earache, no runny nose. He has some chest pain in the middle of the chest, go straight down up to the throat on and off, occasional shortness of breath, occasional cough. Currently, resting hemodynamically stable. ALLERGIES: No known drug allergies. PAST MEDICAL HISTORY: As mentioned above. PAST SURGICAL HISTORY: EGD with endoscopic ultrasound, lumbar fusion surgery. MEDICATIONS: The patient is on amitriptyline 50 mg p.o. at bedtime, Creon 1 capsule p.o. t.i.d. with meals, Eliquis 5 mg p.o. b.i.d., folic acid 1 mg p.o. a.m., glipizide 5 mg p.o. daily, Lantus 18 units subcutaneous at bedtime, multivitamin 1 tablet p.o. daily, oxycodone 5 mg p.o. q. 8 hours p.r.n. for pain, Protonix 40 mg p.o. daily, thiamine 100 mg p.o. daily. FAMILY HISTORY: Significant for father had depression and alcohol abuse. Aunt has manic depression. SOCIAL HISTORY: Former smoker, currently ongoing alcoholism. No substance abuse. REVIEW OF SYSTEMS: As per HPI. Rest of review of systems is negative. PHYSICAL EXAMINATION: GENERAL: The patient is of moderate build, not in acute distress. VITAL SIGNS: Temperature 37.7, pulse 102, respiratory rate 18, blood pressure 111/80, oxygen 98% on room air. HEENT: Pupils equal, round and reactive to light. Oral mucosa moist. NECK: No JVD. No neck masses. CARDIOVASCULAR: S1 and S2 heard. Regular rate and rhythm. No murmur, no gallop. RESPIRATORY SYSTEM: Normal AP diameter. No accessory muscle use. No wheezing or crackles. ABDOMEN: Soft. Bowel sounds present. Diffuse abdominal tenderness, mild guarding. No distention. CENTRAL NERVOUS SYSTEM: Alert and oriented. Speech is clear. No facial droop. Obeys simple commands. Moves extremities. EXTREMITIES: No edema, no erythema. LABORATORY DATA: WBC 4.4, hemoglobin 14.6, hematocrit 40.5, platelets 171. Sodium 134, potassium 4.1, chloride 102, bicarbonate 24, BUN 5, creatinine 0.6, serum glucose 309, calcium 9.1, total bilirubin 0.5, AST 15, ALT 16, alkaline phosphatase 69, lipase 15. Urinalysis negative. SARS-CoV-2 rapid test negative. ASSESSMENT AND PLAN: This is a 47-year-old male, who presents with recurrent admissions for alcoholism and abdominal pain,chronic pancreatitis presents with abdominal pain 1. Severe abdominal pain. Hx of chronic pancreattis. Lipase ok. Just had ct scan few days back. Clears, Iv fluids, pain control. 2. Chest pain radiating into his throat, could be from gastritis from alcoholism. He is on Protonix. We will place him on IV Pepcid b.i.d., We will do serial enzymes. 2. History of deep venous thrombosis, pulmonary embolus, on Eliquis. 3. Diabetes. Hold glipizide. Continue his Lantus. Place on insulin sliding scale. Follow the blood sugars. 4. Alcoholism. Place him on alcohol withdrawal protocol and IV Ativan p.r.n. Monitor for withdrawals. 5. History of ADD, mood disorder. Continue his home medication. 6. Deep venous thrombosis prophylaxis. On Eliquis. 7. ?pink stools. We will check stool for Hemoccult. His hemoglobin is stable. DISPOSITION: Admit to [facility]. PT/OT prior to discharge. Social service to help with discharge planning. Level 1 full code. The patient with recurrent admissions for abdominal pain, asking for narcotic pain medications. May need pain management consult and care plan for this patient. Job ID: [id number] [facility]
[2023-01-18] MEDS: oxyCODONE HCL IR 5 MG TAB (IMMEDIATE RELEASE) PO PRN ×3 (02:42→22:02)
[2023-01-18] MEDS: PROMETHAZINE HCL 12.5 MG in SODIUM CHLORIDE 0.9% 50 ML IV PRN ×3 (05:47→18:03)
[2023-01-18 07:24] LABS: Calcium 9.1 mg/dl (8.6-10.3); Magnesium 1.7 mg/dl (1.7-2.4); Potassium 4.2 mmol/L (3.5-5.1)
[2023-01-18 07:29] LABS: Creatinine Clr Calc Pharmacy 189.8 ml/min; Est GFR (African American) 139.8 ml/min; Est GFR (Non-African American) 120.6 ml/min
[2023-01-18] MEDS ORDERED: MoRPHine SULFATE 2 MG/ML CARP IV PRN (07:55)
[2023-01-18 07:57] LABS: Basophils # (auto) 0.03 K/uL (0-0.2); Basophils % (auto) 0.7 %; Eosinophils # (auto) 0.37 K/uL (0-0.50); Eosinophils % (auto) 8.6 %; Hematocrit (blood only) 39.5 % (42.0-52.0); Hemoglobin 14.1 g/dl (14.0-18.0); Lymphocytes % (auto) 37.4 %; Mean Corpuscular Hgb Conc 35.7 g/dL (32.0-36.0); Mean Corpuscular Volume 92.5 fL (80.0-100.0); Mean Platelet Volume 9.2 fL (9.4-12.4); Monocytes # (auto) 0.34 K/uL (0.11-0.59); Monocytes % (auto) 7.9 %; Neutrophils # (auto) 1.94 K/uL (1.40-6.50); Neutrophils % (auto) 45.4 %; Platelet Count 153 K/uL (130-400); RDW Coefficient of Variation 11.4 % (11.5-14.5); RDW Standard Deviation 38.6 fL (36.4-46.3); Red Blood Count 4.27 M/uL (4.70-6.10); White Blood Count 4.28 K/ul (4.8-10.8)
[2023-01-18] MEDS: APIXABAN 5 MG TABLET PO SCH ×2 (08:22→20:59)
[2023-01-18] MEDS: PANCREAZE (LIPASE 10,500U) CAP PO SCH ×3 (08:22→16:59)
[2023-01-18] MEDS: INSULIN ASPART PER UNIT CHARGE SC SCH ×4 (08:22→20:19)
[2023-01-18] MEDS: THIAMINE HCL 100 MG TAB PO SCH (08:22)
[2023-01-18] MEDS: FOLIC ACID 1 MG TAB PO SCH (08:22)
[2023-01-18] MEDS: PANTOprazole 40 MG TAB PO SCH (08:23)
[2023-01-18] MEDS: MULTIVITAMIN TAB PO SCH (08:23)
[2023-01-18] MEDS: FAMOTIDINE 20 MG in SYRINGE 3 ML IV SCH ×2 (09:30→21:00)
[2023-01-18] MEDS: GABAPENTIN 600 MG TAB PO SCH ×3 (09:31→22:52)
--- NOTE | 2023-01-18 11:35 | Psychiatric Consultation ---
Date of Consultation January 18, 2023 Impression / Recommendations Impression Diagnostically consistent with alcohol use disorder as well as unspecified depression likely a combination of substance-induced as well as MDD. Acute risk of self-harm is low given denial of SI and no longer with intoxication. Chronic risk of self-harm and harm to others is slightly increased due to substance use with substance use treatment being the most significant modifiable risk factor to reduce acute and chronic risk. Spent time doing motivational interviewing regarding his substance use. They are not interested in residential treatment at this time nor medication assisted treatment but agreeable to outpatient therapy and psychiatry referral. (1) Epigastric abdominal pain: (2) Alcohol use disorder, severe, dependence: (3) Substance or medication-induced depressive disorder: Plan -Psychiatric liason will provide resources on local mental health services and substance use services and attempt to set them up with outpatient services -Continue AWSS as well as thiamine and folic acid -If he becomes interested in the future consider starting naltrexone 50mg qd for alcohol use disorder or acamprosate 333mg TID if Cr/renal ok. Psych History Identifying Data 47 yo man with history of alcohol use disorder, chronic pancreatitis, GERD, diabetes admitted medically for abdominal pain. Psychiatry consulted for recommendations for alcohol use disorder. Chief Complaint "Yeah I'm not interested in that". History of Present Illness Raffi reports long history of alcohol use most recently 9-10 beers per day over the last 2 months. Reports increased stress recently after his ex- girlfriend moved to [place] with one of his sons so now he has less contact with him. Reports some depression related to this but feels hopeful that his recent medication change to Elavil may be working. Denies any SI. Has gone to alcohol residential treatment for "detox" or "28 day programs" about 6-7 times, last for "detox" 3 months ago. Doesn't like AA. Has done [facility] but doesn't want to go back there as had to cycle through multiple therapists. Not interested in any medication assisted treatment. Would be interested in therapy referral and agreeable potentially to psychiatry referral in case Elavil ends up not offering enough benefit over time. Allergies Allergy/AdvReac Type Severity Reaction Status Date / Time No Known Allergies Allergy Verified 01/06/23 23:11 Home Medications Medication Instructions Recorded Confirmed Type apixaban 5 mg tablet (Eliquis) 5 mg PO BID 08/17/22 01/17/23 History [id number]-[id number]-[id number] 1 cap PO TID #90 caps 12/21/22 01/17/23 Rx 24,000-76,000-120,000 unit capsule,delayed rel (Creon) amitriptyline 50 mg tablet 50 mg PO HS 01/03/23 01/17/23 History glipizide 5 mg tablet, extended 5 mg PO DAILY 01/03/23 01/17/23 History release 24 hr insulin glargine 100 unit/mL (3 18 unit subcut HS 01/03/23 01/17/23 History mL) subcutaneous pen (Lantus Solostar U-100 Insulin) pantoprazole 40 mg tablet,delayed 40 mg PO DAILY 01/03/23 01/17/23 History release folic acid 1 mg tablet 1 mg PO QAM #30 tabs 01/05/23 01/17/23 Rx multivitamin with folic acid 400 1 tab PO QAM #30 tabs 01/05/23 01/17/23 Rx mcg tablet (Daily-Chriss (with folic acid)) oxycodone 5 mg tablet 5 mg PO Q8H PRN pain (scale score 01/05/23 01/17/23 Rx 7-10) #9 tabs thiamine HCl (vitamin B1) 100 mg 100 mg PO QAM 15 days #15 tabs 01/05/23 01/17/23 Rx tablet Patient History Medical History Abdominal pain Abdominal pain Abdominal pain, acute, epigastric Acute hyperglycemia Alcohol abuse (Unknown) Alcohol abuse Alcohol abuse Alcohol withdrawal Alcoholic ketosis Renae's esophagus (Unknown) "per EGD 11/23/09 " On 05/31/11 09:06 Martinez Jose wrote "per EGD 11/23/09 " Chest pain COVID-19 Depression Depression DM type 2 (diabetes mellitus, type 2) Encounter for alcohol abuse counseling and surveillance Encounter for pre-operative examination Encounter for tobacco use cessation counseling Epigastric abdominal pain H/O acute pancreatitis "recurrent" History of pulmonary embolism History of substance abuse Hyperglycemia Intentional drug overdose Lumbar degenerative disc disease Mood disorder Mood disorder Nausea & vomiting Neuropathy Pancreatic duct stones Pancreatitis Panic disorder Pulmonary embolism on chronic apixaban Retrosternal chest pain Suicidal ideation Suicidal ideation Suicide attempt Surgical History H/O esophagogastroduodenoscopy "EGD 11/23/2009- mild gastritis, suspicious for gastroparesis, Z-line irregular EUS 02/04/2010- mild chronic pancreatitis, pronounced cholesterolosis of gallbladder, no biliary dilation or stones, probable gastroparesis EGD 10/31/2014- gastritis" S/P lumbar fusion L4-S1 2014 Family History Father Alcohol abuse Social History Smoking Status: Never smoker Tobacco Type: Smokeless Tobacco (Dip or Chew) Second Hand Exposure: No; Do You Dip or Chew Tobacco: Yes; Hx Alcohol Use: Yes Alcohol type: beer Hx Substance Use: Yes Last Used Substance: Unknown Preferred Language: Divehi Communication Ability: Effective Kickboxing Instructor Required: No Beliefs That Will Affect Care: None marital status: Current Living Situation: Other Current Living Situation Comment: lives with mother How many Children do You have: 3 Other Information That Helps Us Care for You: No Feels Safe at Home: Yes Safety Concerns: Feels Safe At This Time Assistive Devices: None Physical Exam Psychiatric: Orientation: alert and oriented x 3 Apperance: appropriately dressed and appropriately groomed Eye Contact: good eye contact Motor Behavior: no abnormal motor movements Speech: normal rate/rhythm/volume of speech Affect: + constricted affect Mood: + depressed mood Thought Process: goal directed thought process Thought Content: reality based without delusions Suicidal Thoughts: denies suicidal thoughts Homicidal Thoughts: denies homicidal thoughts Hallucinations: no auditory hallucinations and no visual hallucinations Cognition: attention grossly intact and language grossly intact Estimated Intelligence: consistent with education level Insight: + fair insight Judgment: + limited judgement Vital Signs (Past 24 Hours): Last Vital Signs Temp 37.1 C 01/18/23 11:28 Pulse 92 H 01/18/23 11:28 Resp 18 01/18/23 11:28 BP 111/72 01/18/23 11:28 Pulse Ox 98 01/18/23 11:28 O2 Del Method Room Air 01/18/23 11:28 Review of Systems All systems reviewed & are unremarkable except as noted in HPI & below (generalized sense of malaise) Results & Data (PSY) Medications Administered Lipase/Protease/Amylase (Pancreaze (Lipase 10,500u) Cap) 2 cap PO TIDM REPLACED BY [facility] Stop: 02/17/23 07:59 Last Admin: 01/18/23 08:22 Dose: 2 cap Documented By: CASSIDY Apixaban (Apixaban 5 Mg Tablet) 5 mg PO BID REPLACED BY [facility] Stop: 02/17/23 08:59 Last Admin: 01/18/23 08:22 Dose: 5 mg Documented By: CASSIDY Folic Acid (Folic Acid 1 Mg Tab) 1 mg PO QAM RAMOS Stop: 02/17/23 08:59 Last Admin: 01/18/23 08:22 Dose: 1 mg Documented By: CASSIDY Gabapentin (Gabapentin 600 Mg Tab) 600 mg PO Q6H REPLACED BY [facility] Stop: 01/18/23 16:01 Last Admin: 01/18/23 09:31 Dose: 600 mg Documented By: CASSIDY Sodium Chloride (Nss 1000ml) 1,000 mls @ 150 mls/hr IV .Q6H40M REPLACED BY [facility] Stop: 02/17/23 02:19 Last Admin: 01/18/23 09:30 Dose: 150 mls/hr Documented By: Infusion: 01/18/23 09:09 Dose: 150 mls/hr Documented By: Admin: 01/18/23 02:28 Dose: 150 mls/hr Documented By: MONIQUE Promethazine HCl 12.5 mg/ (Sodium Chloride) 50.5 mls @ 202 mls/hr IV Q6H PRN PRN Reason: Nausea And Vomiting Stop: 02/17/23 05:28 Last Infusion: 01/18/23 05:59 Dose: 0 mls/hr Documented By: Admin: 01/18/23 05:47 Dose: 202 mls/hr Documented By: MONIQUE Famotidine 20 mg/ Syringe 5 mls @ 2.5 mls/min IV BID REPLACED BY [facility] Stop: 02/17/23 08:59 Last Admin: 01/18/23 09:30 Dose: 2.5 mls/min Documented By: CASSIDY Insulin Aspart (Insulin Aspart Per Unit Charge) 0 units SC ACHS REPLACED BY [facility] Stop: 02/17/23 07:29 Last Admin: 01/18/23 08:22 Dose: Not Given Documented By: CASSIDY Morphine Sulfate (Morphine Sulfate 2 Mg/Ml Carp) 2 mg IV Q8H PRN PRN Reason: Severe Pain (Scale 7, 8, 9,10) Stop: 02/01/23 07:54 Last Admin: 01/18/23 08:53 Dose: 2 mg Documented By: CASSIDY Multivitamins (Multivitamin Tab) 1 tab PO [facility] Stop: 02/17/23 08:59 Last Admin: 01/18/23 08:23 Dose: 1 tab Documented By: CASSIDY Oxycodone HCl (Oxycodone Hcl Ir 5 Mg Tab (Immediate Release)) 5 mg PO Q8H PRN PRN Reason: pain (scale score 7-10) Stop: 02/01/23 02:19 Last Admin: 01/18/23 02:42 Dose: 5 mg Documented By: MONIQUE Pantoprazole Sodium (Pantoprazole 40 Mg Tab) 40 mg PO DAILY REPLACED BY [facility] Stop: 02/17/23 08:59 Last Admin: 01/18/23 08:23 Dose: 40 mg Documented By: CASSIDY Thiamine HCl (Thiamine Hcl 100 Mg Tab) 100 mg PO [facility] Stop: 02/17/23 08:59 Last Admin: 01/18/23 08:22 Dose: 100 mg Documented By: CASSIDY Coding Level of Care Code 19384 IN/OBS CONSULT LVL 3,45M Diagnoses Epigastric abdominal pain R10.13 Alcohol use disorder, severe, dependence F10.20 Substance or medication-induced depressive disorder F19.94 Time Spent (min) 50
--- NOTE | 2023-01-18 12:49 | Pain Management Consultation ---
Date of Consultation January 18, 2023 Assessment & Plan (1) Acute alcoholic pancreatitis: Acute pancreatitis complication: no infection or necrosis Qualified Code(s): K85.20 - Alcohol induced acute pancreatitis without necrosis or infection (2) Alcohol abuse: (3) Epigastric abdominal pain: (4) History of substance abuse: (5) History of pulmonary embolism: Plan 1. There continues to be no role for interventional pain management at this time due to ongoing alcohol abuse and chronic apixaban therapy for DVT/pulmonary embolism. * Further discussed with the patient that abstinence from alcohol is advisable given recurrent acute alcoholic pancreatitis. * Understand that he has self-admitted himself to rehab on many occasions, with failure to follow through. He needs to develop a proper and consistent support system, with his father having suffered from alcohol abuse when he was younger, and eventually committing suicide. 2. Continue psychiatric interventions. 3. Continue to advise only a limited supply of opiates be prescribed as an outpatient due to history of substance abuse and intentional overdose history. 4. There continues to be limited options for this patient from a pain management perspective until he decides to abstain from alcohol. No changes to his medication regimen were made at today's visit. 5. Briefly discussed a celiac plexus diagnostic block, however, this would provide limited sustained benefit due to the recurrent nature of the patient's behavior towards alcohol and limited desire to improve. * Again, patient would first need to abstain from alcohol use if this were going to be an option in the future. However, this may not even be a necessary potential intervention if the alcohol abuse were to discontinue. 6. Thank you for this consultation. There is no need for the patient to follow-up with the [facility] pain management office at this point. Pain management team will sign off. History of Present Illness Reason for Consultation: abdominal pain from chronic pancreatitis Attending Physician: Jon Luis MD History of Present Illness 47-year-old male with long history of alcoholic chronic pancreatitis with acute exacerbation. Patient admits he drank 9-10 [employer] beers prior to having to come to the ED last night. He also continues to chew tobacco. In addition, he has a history of pulmonary embolism and DVT, and is on apixaban chronically. Most recent DVT was approximately 5 months ago. He reports sharp, stabbing, shooting pain that is worse with eating. The pain is worst in the epigastric region with radiation to his right upper quadrant and posterior to his epigastrium. He has been utilizing morphine 2 mg IV every 4 hours, which has dropped down from 4 mg yesterday evening. He has also received one dose of oxycodone 5 mg immediate release, and this is scheduled every 8 hours. He denies any constipation or other constitutional complaints. Previous history of substance abuse and suicide attempt of intentional overdose. Allergies Allergy/AdvReac Type Severity Reaction Status Date / Time No Known Allergies Allergy Verified 01/06/23 23:11 Home Medications Medication Instructions Recorded Confirmed Type apixaban 5 mg tablet (Eliquis) 5 mg PO BID 08/17/22 01/17/23 History xytquq-exdfjuzx-emrssuh 1 cap PO TID #90 caps 12/21/22 01/17/23 Rx 24,000-76,000-120,000 unit capsule,delayed rel (Creon) amitriptyline 50 mg tablet 50 mg PO HS 01/03/23 01/17/23 History glipizide 5 mg tablet, extended 5 mg PO DAILY 01/03/23 01/17/23 History release 24 hr insulin glargine 100 unit/mL (3 18 unit subcut HS 01/03/23 01/17/23 History mL) subcutaneous pen (Lantus Solostar U-100 Insulin) pantoprazole 40 mg tablet,delayed 40 mg PO DAILY 01/03/23 01/17/23 History release folic acid 1 mg tablet 1 mg PO QAM #30 tabs 01/05/23 01/17/23 Rx multivitamin with folic acid 400 1 tab PO QAM #30 tabs 01/05/23 01/17/23 Rx mcg tablet (Daily-Chriss (with folic acid)) oxycodone 5 mg tablet 5 mg PO Q8H PRN pain (scale score 01/05/23 01/17/23 Rx 7-10) #9 tabs thiamine HCl (vitamin B1) 100 mg 100 mg PO QAM 15 days #15 tabs 01/05/23 01/17/23 Rx tablet Patient History Medical History (Updated 01/18/23 @ 13:05 by Geoff Tilley PA-C) Abdominal pain Abdominal pain Abdominal pain, acute, epigastric Acute hyperglycemia Alcohol abuse (Unknown) Alcohol abuse Alcohol abuse Alcohol withdrawal Alcoholic ketosis Renae's esophagus (Unknown) "per EGD 11/23/09 " On 05/31/11 09:06 Martinez Jose wrote "per EGD 11/23/09 " Chest pain COVID-19 Depression Depression DM type 2 (diabetes mellitus, type 2) Encounter for alcohol abuse counseling and surveillance Encounter for pre-operative examination Encounter for tobacco use cessation counseling Epigastric abdominal pain H/O acute pancreatitis "recurrent" History of pulmonary embolism History of substance abuse Hyperglycemia Intentional drug overdose Lumbar degenerative disc disease Mood disorder Mood disorder Nausea & vomiting Neuropathy Pancreatic duct stones Pancreatitis Panic disorder Pulmonary embolism on chronic apixaban Retrosternal chest pain Suicidal ideation Suicidal ideation Suicide attempt Surgical History H/O esophagogastroduodenoscopy "EGD 11/23/2009- mild gastritis, suspicious for gastroparesis, Z-line irregular EUS 02/04/2010- mild chronic pancreatitis, pronounced cholesterolosis of gallbladder, no biliary dilation or stones, probable gastroparesis EGD 10/31/2014- gastritis" S/P lumbar fusion L4-S1 2014 Family History Father Alcohol abuse Social History Smoking Status: Never smoker Tobacco Type: Smokeless Tobacco (Dip or Chew) Second Hand Exposure: No; Do You Dip or Chew Tobacco: Yes; Hx Alcohol Use: Yes Alcohol type: beer Hx Substance Use: Yes Last Used Substance: Unknown Preferred Language: Georgian Communication Ability: Effective Channel Cementer Required: No Beliefs That Will Affect Care: None marital status: Current Living Situation: Other Current Living Situation Comment: lives with mother How many Children do You have: 3 Other Information That Helps Us Care for You: No Feels Safe at Home: Yes Safety Concerns: Feels Safe At This Time Assistive Devices: None Physical Exam Gastrointestinal (Abdomen): Inspection/Auscultation: abdomen normal to inspection; abdomen not distended, no abdominal wall ecchymosis and Camacho-Alba sign absent Percussion/Palpation: + abdomen tender, + guarding and abdomen soft maximum point of tenderness in epigastrium Neurologic: Speech / Cognition: normal speech and normal cognition Motor/Sensory: normal movement Cranial Nerves: EOM intact bilaterally Psychiatric: Orientation: alert, oriented x 3 and cooperative Affect: + depressed affect Mood: + depressed mood Cognition: recent memory grossly intact, remote memory grossly intact, attention grossly intact and language grossly intact Judgment: + poor judgement
--- NOTE | 2023-01-18 13:25 | Hospitalist Progress Note ---
Date of Service January 18, 2023 Assessment & Plan (1) Epigastric abdominal pain: Plan Patient is a 47 yr male, who presents with recurrent admissions for alcoholism and abdominal pain,chronic pancreatitis presents with abdominal pain Alcohol use disorder Non compliant with recommendations Multiple admissions with Intoxication Alcohol level 330 Continue alcohol withdrawal protocol with Gabapentin Continue thiamine, folic acid Counselled on multiple occasions to quit alcohol use Appreciate Psychiatry Input Not interested in rehab placement Monitor for withdrawal Abdominal Pain Chronic pain syndrome Chronic pancreatitis H/O narcotic abuse Atypical chest pain/Gastritis could be contributing as well --CT Abd on 01/15/23 :No evidence of acute abdominal or pelvic process. Chronic calcific pancreatitis with atrophic pancreas and dilated pancreatic duct measuring up to 0.8 cm. No pseudocyst formation is identified. -- Lipase level normal -- Cardiac enzyme Negative -Continue pantoprazole, added Pepcid -- Pain management consulted Minimize IV narcotics as able DM II Hypoglycemic on presentation HbA1c 8.7 Continue insulin while hospitalized Monitor blood glucose levels H/O DVT, PE On Eliquis. GERD Renae's esophagus Continue PPI H/O ADD Mood disorder Continue home medications DVT Px: On Eliquis. Code Status Full Code Admission and Anticipated Discharge Date Admission Date: January 18, 2023 Subjective Patient is seen and examined at bedside Tearful during my encounter States having family issues, due to which she drinks alcohol Reports chronic abdominal pain Denies any nausea, vomiting, chest pain, dyspnea No other complaints Review of Systems Review of Systems: All systems reviewed & are unremarkable except as noted in Subjective Physical Exam Physical Exam: Physical Exam: Vitals signs as noted above General Appearance:Moderately built and nourished, no apparent distress Head: normocephalic, Atraumatic Eyes: normal inspection, EOMI Neck: supple, Trachea midline Respiratory/Chest: Normal breath sounds, CTA, No accessory muscle use Cardiovascular: S1, S2, No murmur Abdomen/GI:Soft, non tender, Bowel sounds present Extremities/Musculoskeletal:normal inspection, no edema Neurologic/Psych:AAOX3, grossly no focal neurological deficits Skin: normal color, warm Results & Data Results & Data Vital Signs (Past 12 Hours) Vital Signs Temp Pulse Pulse Resp BP BP Pulse Ox 01/18/23 11:28 37.1 C 92 H 18 111/72 98 01/18/23 07:29 36.6 C 97 H 18 117/76 96 01/18/23 07:16 92 H 01/18/23 03:37 112 H 01/18/23 02:51 36.9 C 16 104/76 95 O2 Del Method 01/18/23 11:28 Room Air 01/18/23 07:29 Room Air 01/18/23 07:16 01/18/23 03:37 01/18/23 02:51 Room Air Laboratory Results Short CBC 01/17/23 01/18/23 01/18/23 Range/Units 21:53 06:25 07:29 WBC 4.44 L Cancelled 4.28 L (4.8-10.8) K/ul Hgb 14.6 Cancelled 14.1 (14.0-18.0) g/dl Hct 40.5 L Cancelled 39.5 L (42.0-52.0) % Plt Count 171 Cancelled 153 (130-400) K/uL BMP 01/17/23 01/18/23 21:53 06:25 Sodium 134 L 140 Potassium 4.1 4.2 Chloride 102 109 H Carbon Dioxide 24 24 BUN 5 L 4 L Creatinine 0.68 0.57 L Glucose 309 H* 125 H Calcium 9.1 9.1 Liver Function 01/17/23 Range/Units 21:53 Total Bilirubin 0.5 (0.2-1.0) mg/dl AST 15 (13-39) U/L ALT 16 (7-52) U/L Alkaline Phosphatase 69 (34-104) U/L Albumin 3.6 (3.4-5.0) gm/dl Urine 01/17/23 Range/Units 22:05 Urine Color Yellow Urine Appearance Clear (Clear) Urine pH 6.0 (4.5-7.5) Ur Specific [place] 1.006 (1.000-1.030) Urine Protein Negative (Negative) Urine Glucose (UA) 3+ H (Negative)
[2023-01-18] MEDS: MoRPHine SULFATE 2 MG/ML CARP IV PRN ×2 (15:10→21:00)
[2023-01-18] MEDS: LANTUS PER UNIT CHARGE SQ SCH (20:19)
[2023-01-18] MEDS: AMITRIPTYLINE HCL 50 MG TAB PO SCH (20:59)
[2023-01-19] MEDS: MoRPHine SULFATE 2 MG/ML CARP IV PRN ×3 (04:49→17:57)
[2023-01-19] MEDS: SODIUM CHLORIDE 0.9% 1000ML 1,000 ML IV SCH ×3 (04:57→18:38)
[2023-01-19] MEDS: APIXABAN 5 MG TABLET PO SCH ×2 (08:37→20:27)
[2023-01-19] MEDS: FOLIC ACID 1 MG TAB PO SCH (08:37)
[2023-01-19] MEDS: THIAMINE HCL 100 MG TAB PO SCH (08:37)
[2023-01-19] MEDS: PANCREAZE (LIPASE 10,500U) CAP PO SCH ×3 (08:38→16:23)
[2023-01-19] MEDS: GABAPENTIN 600 MG TAB PO SCH ×2 (08:38→16:22)
[2023-01-19] MEDS: PANTOprazole 40 MG TAB PO SCH (08:38)
[2023-01-19] MEDS: INSULIN ASPART PER UNIT CHARGE SC SCH ×4 (08:43→20:19)
[2023-01-19 08:44] LABS: BUN Creatinine Ratio 5.5 (10-20); Calcium 9.1 mg/dl (8.6-10.3); Creatinine Clr Calc Pharmacy 130.4 ml/min; Est GFR (African American) 126.2 ml/min; Est GFR (Non-African American) 108.9 ml/min
[2023-01-19] MEDS: FAMOTIDINE 20 MG in SYRINGE 3 ML IV SCH ×2 (08:44→20:27)
[2023-01-19] MEDS: MULTIVITAMIN TAB PO SCH (09:07)
[2023-01-19] MEDS: oxyCODONE HCL IR 5 MG TAB (IMMEDIATE RELEASE) PO PRN ×2 (11:54→20:29)
[2023-01-19 12:41] VITALS: O2SAT 98
--- NOTE | 2023-01-19 12:48 | Hospitalist Progress Note ---
Date of Service January 19, 2023 Assessment & Plan (1) Epigastric abdominal pain: Plan Patient is a 47 yr male, who presents with recurrent admissions for alcoholism and abdominal pain,chronic pancreatitis presents with abdominal pain Alcohol use disorder Non compliant with recommendations Multiple admissions with Intoxication Alcohol level 330 Continue alcohol withdrawal protocol with Gabapentin Continue thiamine, folic acid Counselled on multiple occasions to quit alcohol use Appreciate Psychiatry Input Not interested in rehab placement Continue to monitor for withdrawal Continue current management Abdominal Pain Chronic pain syndrome Chronic pancreatitis H/O narcotic abuse Atypical chest pain/Gastritis could be contributing as well --CT Abd on 01/15/23 :No evidence of acute abdominal or pelvic process. Chronic calcific pancreatitis with atrophic pancreas and dilated pancreatic duct measuring up to 0.8 cm. No pseudocyst formation is identified. -- Lipase level normal -- Cardiac enzyme Negative -Continue pantoprazole, added Pepcid -- Pain management consulted Minimize IV narcotics as able Advance diet as tolerated DM II Hypoglycemic on presentation HbA1c 8.7 Continue insulin while hospitalized Monitor blood glucose levels H/O DVT, PE On Eliquis. GERD Renae's esophagus Continue PPI H/O ADD Mood disorder Continue home medications DVT Px: On Eliquis. Code Status Full Code Admission and Anticipated Discharge Date Admission Date: January 18, 2023 Subjective Patient is seen and examined at bedside States feeling better today Abdominal pain slowly improving Tolerating current diet Reports tremors, jitteriness due to alcohol withdrawal No other complaints Denies any nausea, vomiting, chest pain, dyspnea Review of Systems Review of Systems: All systems reviewed & are unremarkable except as noted in Subjective Physical Exam Physical Exam: Physical Exam: Vitals signs as noted above General Appearance:Moderately built and nourished, no apparent distress Head: normocephalic, Atraumatic Eyes: normal inspection, EOMI Neck: supple, Trachea midline Respiratory/Chest: Normal breath sounds, CTA, No accessory muscle use Cardiovascular: S1, S2, No murmur Abdomen/GI:Soft, Epigastric tender, Bowel sounds present Extremities/Musculoskeletal:normal inspection, no edema Neurologic/Psych:AAOX3, grossly no focal neurological deficits Skin: normal color, warm Results & Data Results & Data Vital Signs (Past 12 Hours) Vital Signs Temp Pulse Pulse Resp BP BP Pulse Ox 01/19/23 11:05 36.5 C 83 18 106/71 98 01/19/23 07:37 36.4 C L 83 16 104/66 97 01/19/23 07:29 76 01/19/23 02:57 36.5 C 81 16 119/78 99 01/19/23 01:28 108 H O2 Del Method 01/19/23 11:05 Room Air 01/19/23 07:37 Room Air 01/19/23 07:29 01/19/23 02:57 Room Air 01/19/23 01:28 Laboratory Results [facility] 01/19/23 07:51 Sodium 139 Potassium 4.0 Chloride 107 Carbon Dioxide 29 BUN 4 L Creatinine 0.73 Glucose 155 H Calcium 9.1
--- NOTE | 2023-01-19 18:50 | Electrocardiogram Report ---
Test Reason : Blood Pressure : / mmHG Vent. Rate : 112 BPM Atrial Rate : 112 BPM P-R Int : 160 ms QRS Dur : 068 ms QT Int : 328 ms P-R-T Axes : 059 017 022 degrees QTc Int : 447 ms Sinus tachycardia Abnormal ECG When compared with ECG of 15-JAN-2023 21:11, No significant change was found Confirmed by Danilo Grimes ([id number]) on 01/19/2023 6:50:29 PM Referred By: REFERRED SELF Confirmed By:Jere Grimes
[2023-01-19] MEDS: LANTUS PER UNIT CHARGE SQ SCH (20:27)
[2023-01-19] MEDS: AMITRIPTYLINE HCL 50 MG TAB PO SCH (20:28)
[2023-01-19] MEDS: PROMETHAZINE HCL 12.5 MG in SODIUM CHLORIDE 0.9% 50 ML IV PRN (23:53)
[2023-01-20] MEDS: SODIUM CHLORIDE 0.9% 1000ML 1,000 ML IV SCH ×3 (01:22→15:00)
[2023-01-20] MEDS: MoRPHine SULFATE 2 MG/ML CARP IV PRN ×2 (03:11→11:08)
[2023-01-20] MEDS ORDERED: GABAPENTIN 600 MG TAB PO SCH (04:00)
[2023-01-20] MEDS: oxyCODONE HCL IR 5 MG TAB (IMMEDIATE RELEASE) PO PRN (06:45)
[2023-01-20 07:37] LABS: Calcium 9.2 mg/dl (8.6-10.3); Potassium 3.8 mmol/L (3.5-5.1)
[2023-01-20 07:43] LABS: BUN Creatinine Ratio 6.5 (10-20); Creatinine Clr Calc Pharmacy 153.5 ml/min; Est GFR (Non-African American) 116.5 ml/min
[2023-01-20] MEDS: APIXABAN 5 MG TABLET PO SCH (08:16)
[2023-01-20] MEDS: FOLIC ACID 1 MG TAB PO SCH (08:16)
[2023-01-20] MEDS: PANCREAZE (LIPASE 10,500U) CAP PO SCH ×2 (08:16→12:55)
[2023-01-20] MEDS: MULTIVITAMIN TAB PO SCH (08:17)
[2023-01-20] MEDS: THIAMINE HCL 100 MG TAB PO SCH (08:17)
[2023-01-20] MEDS: PANTOprazole 40 MG TAB PO SCH (08:17)
[2023-01-20] MEDS: FAMOTIDINE 20 MG in SYRINGE 3 ML IV SCH (08:28)
[2023-01-20] MEDS: INSULIN ASPART PER UNIT CHARGE SC SCH ×2 (08:35→13:12)
[2023-01-20] MEDS ORDERED: ACETAMINOPHEN 500 MG TAB PO PRN (10:12)
[2023-01-20 11:54] VITALS: PULSE 73; TEMP 98.1
--- NOTE | 2023-01-20 12:12 | Hospitalist Progress Note ---
Date of Service January 20, 2023 Assessment & Plan (1) Epigastric abdominal pain: Plan Patient is a 47 yr male, who presents with recurrent admissions for alcoholism and abdominal pain,chronic pancreatitis presents with abdominal pain Alcohol use disorder Non compliant with recommendations Multiple admissions with Intoxication Alcohol level 330 Continue alcohol withdrawal protocol with Gabapentin Continue thiamine, folic acid Counselled on multiple occasions to quit alcohol use Appreciate Psychiatry Input Not interested in rehab placement Continue to monitor for withdrawal Continue current management Abdominal Pain Chronic pain syndrome Chronic pancreatitis H/O narcotic abuse Atypical chest pain/Gastritis could be contributing as well --CT Abd on 01/15/23 :No evidence of acute abdominal or pelvic process. Chronic calcific pancreatitis with atrophic pancreas and dilated pancreatic duct measuring up to 0.8 cm. No pseudocyst formation is identified. -- Lipase level normal -- Cardiac enzyme Negative -Continue pantoprazole, added Pepcid -- Pain management consulted Minimize IV narcotics as able Advance diet as tolerated DM II Hypoglycemic on presentation HbA1c 8.7 Continue insulin while hospitalized Monitor blood glucose levels H/O DVT, PE On Eliquis. GERD Renae's esophagus Continue PPI H/O ADD Mood disorder Continue home medications DVT Px: On Eliquis. Code Status Full Code Admission and Anticipated Discharge Date Admission Date: January 18, 2023 Results & Data Results & Data Vital Signs (Past 12 Hours) Vital Signs Temp Pulse Resp BP BP Pulse Ox O2 Del Method 01/20/23 11:52 36.7 C 73 20 121/77 98 Room Air 01/20/23 08:02 36.4 C L 69 20 112/75 98 Room Air 01/20/23 04:08 36.6 C 66 18 113/74 98 Room Air
[2023-01-20 15:40] VITALS: BP 113/74
--- NOTE | 2023-01-20 16:35 | Discharge Summary ---
Date of Service January 20, 2023 Admission HPI Per Admitting Provider Per Dr. Jed Sousa This is a 47-year-old male with past medical history significant for chronic alcohol abuse, ongoing alcoholism, chronic pancreatitis, GERD, Renae's esophagus, add mood disorder, diabetes, insulin requiring; history of PE, recurrent, on Eliquis, history of chronic pain, history of narcotic abuse, as per records, terminated medication agreement, multiple recurrent admissions for alcohol abuse and abdominal pain and chronic pancreatitis. He was admitted on 01/16/2023 for abdominal pain and got discharged on 01/16/2023. Again, comes back with abdominal pain. He has nausea and vomiting, vomited 3 times some food materials. He states his stools are some pinkish orange color and float in the water. Severe abdominal pain, requiring several morphine doses in the ER requests for one more dose now. Denies any fevers or chills. No headache, no blurred visions, no earache, no runny nose. He has some chest pain in the middle of the chest, go straight down up to the throat on and off, occasional shortness of breath, occasional cough. Currently, resting hemodynamically stable. Admission Exam Per Admitting Provider GENERAL: The patient is of moderate build, not in acute distress. VITAL SIGNS: Temperature 37.7, pulse 102, respiratory rate 18, blood pressure 111/80, oxygen 98% on room air. HEENT: Pupils equal, round and reactive to light. Oral mucosa moist. NECK: No JVD. No neck masses. CARDIOVASCULAR: S1 and S2 heard. Regular rate and rhythm. No murmur, no gallop. RESPIRATORY SYSTEM: Normal AP diameter. No accessory muscle use. No wheezing or crackles. ABDOMEN: Soft. Bowel sounds present. Diffuse abdominal tenderness, mild guarding. No distention. CENTRAL NERVOUS SYSTEM: Alert and oriented. Speech is clear. No facial droop. Obeys simple commands. Moves extremities. EXTREMITIES: No edema, no erythema. Principal Diagnosis Abdominal Pain Discharge Exam General: Alert, oriented. No acute distress Skin: No noted rashes or bruises Psych: Appropriate mood and affect Neuro: No gross deficits HEENT: NC/AT CV: RRR, Normal s1, s2. No murmurs appreciated Resp: Breath sounds clear bilaterally, no increased effort of breathing. Abdomen: Soft, mildly diffusely tender, nondistended. No guarding. Extremities: No edema in lower extremities bilaterally. Discharge Data Allergies Allergy/AdvReac Type Severity Reaction Status Date / Time No Known Allergies Allergy Verified 01/06/23 23:11 Consultations 01/18/23 00:04 ED Decision to Admit Stat 01/18/23 07:50 Consult Pain Management Routine 01/18/23 07:54 Consult Psychiatry Routine Hospital Course (1) Alcohol use disorder, severe, dependence: (2) Abdominal pain, acute, epigastric: (3) Acute on chronic pancreatitis: Plan 47 yr male with recurrent admissons for abdominal pain in the setting of chronic alcoholic pancreatitis. He was admitted with alcohol level of 330. CT Abd/pelvis on 01/15/23 showed no evidence of acute abdominal or pelvic process. Showed "chronic calcific pancreatitis with atrophic pancreas and dilated pancreatic duct measuring up to 0.8 cm." No pseudocyst formation was identified. Lipase level was within normal limits. Pt had his diet slowly advanced, was on high rate IV fluids and received frequent IV pain medications per his request for abdominal pain. Was on the alcohol withdrawal protocol, with thiamine and folic acid. He was seen by psychiatry inpatient and was discharged with followup with [facility] Psychiatry scheduled in February. He was also given the contact number for [facility] and stated that he would be following up with Counselor Lavon at discharge. Alcohol cessation was once again advised. He was also seen by inpatient Pain Management who recommended/stated the following: " There continues to be limited options for this patient from a pain management perspective until he decides to abstain from alcohol... Briefly discussed a celiac plexus diagnostic block, however, this would provide limited sustained benefit due to the recurrent nature of the patient's behavior towards alcohol and limited desire to improve." Total Time Total Time Spent Total Time Spent (In Minutes): I spent a total of >30 minutes interviewing and examining the patient, as well as interpreting labs and managing medications. Discharge Plan Discharge Items Patient Disposition: Home - Self-Care Reason For Visit: ABDOMINAL PAIN Discharge Diagnosis: Chronic pancreatitis Condition on Discharge: Good Activity: Resume your previous activity Non-emergency contact: Primary Care Provider Call non-emergency contact if: your symptoms worsen and your pain is not controlled Follow-up/Referrals: [facility] Psychiatry [Other] - 02/06/23 2:15 pm (Telehealth intake appointment with Shalini Rey LCSW ) Dhiraj Myers, DO [Primary Care Provider] - 01/27/23 1:40 pm (Date & Time 01/27/2023 1:40 PM Provider Chari López PA-C Department Family [facility] ) Diet: Carb Consistent or DM2 Addtl Attending Provider Instructions: You were admitted with abdominal pain in the setting of chronic pancreatitis. You stated that your abdominal pain was back to baseline and you were tolerating solid food. We recommend that you discontinue use of alcohol as it is the biggest contributor to your symptoms. Please keep followup at [facility] with the counselor Lavon whose contact number you have. You are also scheduled to see [facility] Psychiatry on February 06, please keep that appointment. We also recommend close follow up with your primary care provider. Continue with your home abdominal pain regimen and follow up with your primary care provider as noted above. Pending Studies at Discharge: No Stand-Alone Forms: My [facility] [employer], Smoking Cessation Medications and DC Order Prescriptions: Continued Eliquis 5 mg tablet 5 mg PO BID Creon 24,000-76,000 -120,000 unit capsule,delayed release(DR/EC) 1 cap PO TID Qty: 90 0RF Rx Instructions: administer with meals and/or snacks glipizide 5 mg tablet extended release 24hr 5 mg PO DAILY amitriptyline 50 mg tablet 50 mg PO HS pantoprazole 40 mg tablet,delayed release (DR/EC) 40 mg PO DAILY insulin glargine [Lantus Solostar U-100 Insulin] 100 unit/mL (3 mL) insulin pen 18 unit subcut HS folic acid 1 mg Tablet 1 mg PO QAM Qty: 30 0RF multivitamin with folic acid [Daily-Chriss (with folic acid)] 400 mcg Tablet 1 tab PO QAM Qty: 30 0RF thiamine HCl (vitamin B1) 100 mg Tablet 100 mg PO QAM 15 Days Qty: 15 0RF oxycodone 5 mg Tablet 5 mg PO Q8H PRN (Reason: pain (scale score 7-10)) Qty: 9 0RF Discharge Orders: Discharge Order (Routine); Ordered 01/20/23 Ordered By: Denise Oconnell Admission Data Admit Date/Time: 01/18/23 01:18 Attending Provider: Denise Oconnell Admit Provider: Jed Sousa Primary Care Provider: Dhiraj Myers Other Providers: Jed Sousa ; Magno Sampson ; Pat Tinsley ; Megan Craig ; Radu Schulz ; Jon Luis Other Interventions: Discharge Summary Assessment (RN) Last Done: 01/20/23 15:38
[2023-01-21] MEDS ORDERED: GABAPENTIN 600 MG TAB PO SCH (16:00)
== END 2023-01-20 15:52 | disposition home or self-care (01) | DRG 440 ==
LOC: ED 21:14 → 2N 01-18 01:18 → SUATTDRO 01-18 01:18 → 2N 01-18 02:20
DX: K21.9 Gastro-esophageal reflux disease without esophagitis; G89.4 Chronic pain syndrome; E11.65 Type 2 diabetes mellitus with hyperglycemia; Z79.4 Long term (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; Z87.891 Personal history of nicotine dependence; Z86.16 Personal history of COVID-19; K22.70 Barrett's esophagus without dysplasia; F19.14 Other psychoactive substance abuse with psychoactive substance-induced mood disorder; Z91.199 Patient's noncompliance with other medical treatment and regimen due to unspecified reason; Z79.01 Long term (current) use of anticoagulants; F10.20 Alcohol dependence, uncomplicated; Z91.51 Personal history of suicidal behavior; Z86.711 Personal history of pulmonary embolism; Z79.84 Long term (current) use of oral hypoglycemic drugs; Z98.1 Arthrodesis status; K86.0 Alcohol-induced chronic pancreatitis; K85.20 Alcohol induced acute pancreatitis without necrosis or infection; K29.70 Gastritis, unspecified, without bleeding

== ENCOUNTER 2023-02-22 20:50 | Inpatient (IN) ==
[2023-02-22 22:02] LABS: Basophils # (auto) 0.05 K/uL (0-0.2); Basophils % (auto) 0.8 %; Eosinophils # (auto) 0.46 K/uL (0-0.50); Eosinophils % (auto) 7.3 %; Hematocrit (blood only) 40.2 % (42.0-52.0); Hemoglobin 14.4 g/dl (14.0-18.0); Immature Granulocytes # (auto) 0.01 K/uL (0.01-0.20); Immature Granulocytes % (auto) 0.2 %; Lymphocytes # (auto) 1.87 K/uL (1.2-3.4); Lymphocytes % (auto) 29.5 %; Mean Corpuscular Hemoglobin 32.1 pg (25.0-34.0); Mean Corpuscular Hgb Conc 35.8 g/dL (32.0-36.0); Mean Corpuscular Volume 89.7 fL (80.0-100.0); Mean Platelet Volume 9.4 fL (9.4-12.4); Monocytes # (auto) 0.44 K/uL (0.11-0.59); Neutrophils % (auto) 55.2 %; Platelet Count 155 K/uL (130-400); RDW Coefficient of Variation 11.1 % (11.5-14.5); RDW Standard Deviation 36.6 fL (36.4-46.3); Red Blood Count 4.48 M/uL (4.70-6.10); White Blood Count 6.33 K/ul (4.8-10.8)
[2023-02-22 22:16] LABS: Troponin I High Sensitivity < 2.3 pg/ml (0-20)
[2023-02-22 22:17] LABS: Albumin Level 4.1 gm/dl (3.4-5.0); Anion Gap 10 (3-11); Bilirubin,Total 0.5 mg/dl (0.2-1.0); Calcium 9.3 mg/dl (8.6-10.3); Carbon Dioxide 23 mmol/L (21-32); Chloride 97 mmol/L (98-107); Potassium 3.5 mmol/L (3.5-5.1); Sodium 130 mmol/L (136-145)
[2023-02-22 22:27] LABS: Alanine Aminotransferase 16 U/L (7-52); Albumin Globulin Ratio 1.2 (0.9-2); Alkaline Phosphatase 71 U/L (34-104); Aspartate Aminotransferase 23 U/L (13-39); BUN Creatinine Ratio 7.7 (10-20); Blood Urea Nitrogen 7 mg/dl (6-23); Creatinine Clr Calc Pharmacy 107.8 ml/min; Est GFR (African American) 114.3 ml/min; Est GFR (Non-African American) 98.6 ml/min; Globulin 3.3 gm/dl (2.5-4.0); Glucose 304 mg/dl (70-99(Fasting)); Lipase 58 U/L (11-82); Total Protein 7.4 gm/dl (6.0-8.3)
[2023-02-22] MEDS ORDERED: MoRPHine SULFATE 4 MG/ML 1 ML CARP\\VIAL IV STA ×2 (22:49→23:45)
[2023-02-22] MEDS ORDERED: KETOROLAC TROMETHAMINE 15 MG/ML VIAL IV STA (22:49)
[2023-02-22] MEDS ORDERED: ONDANSETRON INJ 2 MG/ML 2 ML VIAL IV STA ×2 (22:49→23:45)
[2023-02-22] MEDS ORDERED: SODIUM CHLORIDE 0.9% 1000ML 500 ML IV ONE (22:49)
[2023-02-22] MEDS ORDERED: SODIUM CHLORIDE 0.9% 1000ML 1,000 ML IV ONE (23:45)
--- NOTE | 2023-02-23 00:20 | Emergency Department Note ---
History of Present Illness General Chief Complaint: Abdominal Pain Stated Complaint: SEVERE ABDOMINAL PAIN,PANCREATITIS,BLOOD STOOL, Time Seen by Provider: 02/22/23 22:45 History of Present Illness Provider Complaint: abdominal pain Onset (ago): 2 day(s) Pain Consistency: constant Location: epigastric Radiation: back Severity: moderate Maximum Pain Intensity: 4 Current Pain Intensity: 4 Quality: + stabbing and + sharp Relieved By: + nothing Exacerbated By: + nothing Context: + history of similar episodes ("It is my chronic pancreatitis") Associated Symptoms: + nausea, + vomiting and + back pain; no hematemesis and no hematuria Home Medications Medication Instructions Recorded Confirmed Type apixaban 5 mg tablet (Eliquis) 5 mg PO BID 08/17/22 02/22/23 History amitriptyline 50 mg tablet 50 mg PO QAM 01/03/23 02/22/23 History insulin glargine 100 unit/mL (3 22 unit subcut HS 01/03/23 02/22/23 History mL) subcutaneous pen (Lantus Solostar U-100 Insulin) pantoprazole 40 mg tablet,delayed 40 mg PO DAILY 01/03/23 02/22/23 History release oxycodone 5 mg tablet 5 mg PO Q8H PRN pain (scale score 01/05/23 02/22/23 Rx 7-10) #9 tabs Allergies Allergy/AdvReac Type Severity Reaction Status Date / Time No Known Allergies Allergy Verified 02/22/23 23:05 Past Med/Surg History Medical History Abdominal pain Abdominal pain Abdominal pain, acute, epigastric Acute hyperglycemia Alcohol abuse (Unknown) Alcohol abuse Alcohol abuse Alcohol withdrawal Alcoholic ketosis Renae's esophagus (Unknown) "per EGD 11/23/09 " On 05/31/11 09:06 Martinez Jose wrote "per EGD 11/23/09 " Chest pain COVID-19 Depression Depression DM type 2 (diabetes mellitus, type 2) Encounter for alcohol abuse counseling and surveillance Encounter for pre-operative examination Encounter for tobacco use cessation counseling Epigastric abdominal pain H/O acute pancreatitis "recurrent" History of pulmonary embolism History of substance abuse Hyperglycemia Intentional drug overdose Lumbar degenerative disc disease Mood disorder Mood disorder Nausea & vomiting Neuropathy Pancreatic duct stones Pancreatitis Panic disorder Pulmonary embolism on chronic apixaban Retrosternal chest pain Suicidal ideation Suicidal ideation Suicide attempt Surgical History H/O esophagogastroduodenoscopy "EGD 11/23/2009- mild gastritis, suspicious for gastroparesis, Z-line irregular EUS 02/04/2010- mild chronic pancreatitis, pronounced cholesterolosis of gallbladder, no biliary dilation or stones, probable gastroparesis EGD 10/31/2014- gastritis" S/P lumbar fusion L4-S1 2014 Family History Father Alcohol abuse Social History Smoking Status: Never smoker Tobacco Type: Smokeless Tobacco (Dip or Chew) Second Hand Exposure: No; Do You Dip or Chew Tobacco: Yes; Hx Alcohol Use: Yes Alcohol type: beer Hx Substance Use: Yes Last Used Substance: Unknown Preferred Language: Samoan Communication Ability: Effective [employer] Required: No Beliefs That Will Affect Care: None marital status: Current Living Situation: Other Current Living Situation Comment: lives with mother How many Children do You have: 3 Feels Safe at Home: Yes Assistive Devices: None Physical Exam Vital Signs: Vital Signs - 24 hr 02/22/23 21:02 02/22/23 23:07 02/22/23 23:30 Temperature 36.8 C Temperature Source Temporal Artery Sc an Pulse Rate 108 H 101 H 95 H Pulse Rate from Sp O2 Sensor 101 H 96 H Respiratory Rate 20 15 18 Respiratory Effort / Characteristics Non-Labored Sponta neous Respiratory Depth Normal Blood Pressure 156/93 H 127/82 Blood Pressure Ashley n 114 97 Pulse Oximetry 99 97 99 Oxygen Delivery Me thod Room Air Sepsis Recent Feve r Within 48 Hours No Sepsis New/Unexpla ined Change in Men raad Status No Sepsis Action Take n by Nursing No Action Required 02/23/23 00:00 02/23/23 00:30 Temperature Temperature Source Pulse Rate 95 H 100 H Pulse Rate from Sp O2 Sensor 95 H 100 H Respiratory Rate 15 20 Respiratory Effort / Characteristics Respiratory Depth Blood Pressure 128/82 138/87 Blood Pressure Ashley n 97 104 Pulse Oximetry 99 98 Oxygen Delivery Me thod Sepsis Recent Feve r Within 48 Hours Sepsis New/Unexpla ined Change in Men raad Status Sepsis Action Take n by Nursing Physical Exam: Physical Exam GENERAL: She is oriented to person, place, and time. She appears well-developed and well-nourished. She does not appear distressed. HENT: Exam performed. -Head: Normocephalic and atraumatic. -Right Ear: External ear normal. No mastoid erythema -Left Ear: External ear normal. No mastoid erythema -Mouth/Throat: The oropharynx is clear and moist. No trismus in the jaw. No dental abscesses or uvula swelling. No oropharyngeal exudate or tonsillar abscesses. EYES: Conjunctivae and EOM are normal.Right eye exhibits no discharge. Left eye exhibits no discharge. No scleral icterus. NECK: Normal range of motion. Neck supple. No JVD present. No tracheal deviation and normal range of motion present. CV: Normal rate, regular rhythm, normal heart sounds and intact distal pulses. There is no peripheral edema. Palpable radial pulses bue. PULM/CHEST: Effort normal and breath sounds normal. No respiratory distress. No stridor. She has no wheezes. She has no rales. -Chest Wall: She exhibits no tenderness. ABD: The abdomen is soft. Bowel sounds are normal. She has no distension. No mass is present. There is tenderness to palpation of the abdomen in the epigastric area. There is no rebound, no guarding, no Estrella's sign and no tenderness at McBurney's point. Rovsig negative MUSC/SKEL: Normal range of motion. There is no peripheral edema, tenderness or deformity. NEURO: Motor and sensation grossly intact. SKIN: Skin is warm and dry. She is not diaphoretic. PSYCH: She has a normal mood and affect. Behavior is normal. Judgment and thought content normal. Course Course 2244: The patient was evaluated in room B3. A complete history and physical exam was performed Administered Medications Discontinued Medications Sodium Chloride (Nss 1000ml) 500 mls @ 999 mls/hr IV .Q31M ONE Stop: 02/22/23 23:19 Last Infusion: 02/23/23 00:39 Dose: 0 mls/hr Documented By: Admin: 02/22/23 23:05 Dose: 999 mls/hr Documented By: ERLINDA Sodium Chloride (Nss 1000ml) 1,000 mls @ 999 mls/hr IV .Q1H1M ONE Stop: 02/23/23 00:45 Last Admin: 02/23/23 00:29 Dose: 999 mls/hr Documented By: ERLINDA Ketorolac Tromethamine (Ketorolac Tromethamine 15 Mg/Ml Vial) 15 mg IV NOW STA Stop: 02/22/23 22:50 Last Admin: 02/22/23 23:02 Dose: 15 mg Documented By: ERLINDA Morphine Sulfate (Morphine Sulfate 4 Mg/Ml 1 Ml Carp\\Vial) 2 mg IV NOW STA Stop: 02/22/23 22:50 Last Admin: 02/22/23 23:01 Dose: 2 mg Documented By: ERLINDA Morphine Sulfate (Morphine Sulfate 4 Mg/Ml 1 Ml Carp\\Vial) 4 mg IV NOW STA Stop: 02/22/23 23:46 Last Admin: 02/23/23 00:27 Dose: 4 mg Documented By: ERLINDA Ondansetron HCl (Ondansetron Inj 2 Mg/Ml 2 Ml Vial) 4 mg IV NOW STA Stop: 02/22/23 22:50 Last Admin: 02/22/23 23:02 Dose: 4 mg Documented By: ERLINDA Ondansetron HCl (Ondansetron Inj 2 Mg/Ml 2 Ml Vial) 4 mg IV NOW STA Stop: 02/22/23 23:46 Last Admin: 02/23/23 00:27 Dose: 4 mg Documented By: ERLINDA Medical Decision Making Medical Records Attestation: I reviewed the patient's medical records. External medical records reviewed. Patient has multiple admissions for chronic pancreatitis/pancreatitis. Patient has had 10 CT of the abdomen pelvis since beginning of 2022. Laboratory Data Attestation: I reviewed the patient's lab results. 02/22/23 21:25 02/22/23 21:25 Lab Results 02/22/23 02/22/23 02/22/23 Range/Units 21:25 21:25 21:25 WBC 6.33 (4.8-10.8) K/ul RBC 4.48 L (4.70-6.10) M/uL Hgb 14.4 (14.0-18.0) g/dl Hct 40.2 L (42.0-52.0) % MCV 89.7 (80.0-100.0) fL MCH 32.1 (25.0-34.0) pg MCHC 35.8 (32.0-36.0) g/dL RDW Std Deviation 36.6 (36.4-46.3) fL RDW Coeff of Gucci 11.1 L (11.5-14.5) % Plt Count 155 (130-400) K/uL MPV 9.4 (9.4-12.4) fL Immature Gran % (Auto) 0.2 % Neut % (Auto) 55.2 % Lymph % (Auto) 29.5 % [place] % (Auto) 7.0 % Eos % (Auto) 7.3 % Baso % (Auto) 0.8 % Neut # (Auto) 3.50 (1.40-6.50) K/uL Lymph # (Auto) 1.87 (1.2-3.4) K/uL [place] # (Auto) 0.44 (0.11-0.59) K/uL Eos # (Auto) 0.46 (0-0.50) K/uL Baso # (Auto) 0.05 (0-0.2) K/uL Immature Gran # (Auto) 0.01 (0.01-0.20) K/uL Sodium 130 L (136-145) mmol/L Potassium 3.5 (3.5-5.1) mmol/L Chloride 97 L (98-107) mmol/L Carbon Dioxide 23 (21-32) mmol/L Anion Gap 10 (3-11) BUN 7 (6-23) mg/dl Creatinine 0.91 (0.6-1.4) mg/dl Est Cr Clr Drug Dosing 107.8 ml/min Est GFR ( Amer) 114.3 ml/min Est GFR (Non-Af Amer) 98.6 ml/min BUN/Creatinine Ratio 7.7 L (10-20) Glucose 304 H* (70-99(Fasting)) mg/dl POC Glucose (70-99) mg/dl Calcium 9.3 (8.6-10.3) mg/dl Total Bilirubin 0.5 (0.2-1.0) mg/dl AST 23 (13-39) U/L ALT 16 (7-52) U/L Alkaline Phosphatase 71 (34-104) U/L Troponin I High Sens < 2.3 (0-20) pg/ml Total Protein 7.4 (6.0-8.3) gm/dl Albumin 4.1 (3.4-5.0) gm/dl Globulin 3.3 (2.5-4.0) gm/dl Albumin/Globulin Ratio 1.2 (0.9-2) Lipase 58 (11-82) U/L SARS-CoV-2, RNA, NAAT NEGATIVE (NEGATIVE) 02/22/23 02/23/23 Range/Units 21:31 00:04 WBC (4.8-10.8) K/ul RBC (4.70-6.10) M/uL Hgb (14.0-18.0) g/dl Hct (42.0-52.0) % MCV (80.0-100.0) fL MCH (25.0-34.0) pg MCHC (32.0-36.0) g/dL RDW Std Deviation (36.4-46.3) fL RDW Coeff of Gucci (11.5-14.5) % Plt Count (130-400) K/uL MPV (9.4-12.4) fL Immature Gran % (Auto) % Neut % (Auto) % Lymph % (Auto) % [place] % (Auto) % Eos % (Auto) % Baso % (Auto) % Neut # (Auto) (1.40-6.50) K/uL Lymph # (Auto) (1.2-3.4) K/uL [place] # (Auto) (0.11-0.59) K/uL Eos # (Auto) (0-0.50) K/uL Baso # (Auto) (0-0.2) K/uL Immature Gran # (Auto) (0.01-0.20) K/uL Sodium (136-145) mmol/L Potassium (3.5-5.1) mmol/L Chloride (98-107) mmol/L Carbon Dioxide (21-32) mmol/L Anion Gap (3-11) BUN (6-23) mg/dl Creatinine (0.6-1.4) mg/dl Est Cr Clr Drug Dosing ml/min Est GFR ( Amer) ml/min Est GFR (Non-Af Amer) ml/min BUN/Creatinine Ratio (10-20) Glucose (70-99(Fasting)) mg/dl POC Glucose 325 H* (70-99) mg/dl Calcium (8.6-10.3) mg/dl Total Bilirubin (0.2-1.0) mg/dl AST (13-39) U/L ALT (7-52) U/L Alkaline Phosphatase (34-104) U/L Troponin I High Sens (0-20) pg/ml Total Protein (6.0-8.3) gm/dl Albumin (3.4-5.0) gm/dl Globulin (2.5-4.0) gm/dl Albumin/Globulin Ratio (0.9-2) Lipase (11-82) U/L SARS-CoV-2, RNA, NAAT NEGATIVE (NEGATIVE) MDM Narrative Cardiac monitoring: An order was placed for continuous cardiac monitoring. The monitor shows a rate of 100 with sinus rhythm interpreted by me Patient was seen during a time of extreme volume and extreme acuity in the emergency department. Nursing triage protocols were initiated and labs were drawn by protocol in the triage area. Patient reports he is symptoms are similar to his chronic pancreatitis. Patient was given analgesic as and IV fluids in the emergency department but the patient states his pain is still too much, [facility]. No CT of the abdomen pelvis at this time as the patient has had an extraordinary amount of radiation in the last 6 months to his abdomen pelvis area and physical exam findings do not show an acute abdomen. Impression & Plan Recurrent pancreatitis Discharge Plan Visit Data Chief Complaint: Abdominal Pain Stated Complaint: SEVERE ABDOMINAL PAIN,PANCREATITIS,BLOOD STOOL, ED Provider: Stan Estes Discharge Problem: Recurrent pancreatitis Patient Disposition: Admitted As Inpatient Forms Stand Alone Forms: My [facility] Prescriptions Prescriptions: No Action Eliquis 5 mg tablet 5 mg PO BID amitriptyline 50 mg tablet 50 mg PO QAM pantoprazole 40 mg tablet,delayed release (DR/EC) 40 mg PO DAILY insulin glargine [Lantus Solostar U-100 Insulin] 100 unit/mL (3 mL) insulin pen 22 unit subcut HS oxycodone 5 mg Tablet 5 mg PO Q8H PRN (Reason: pain (scale score 7-10)) Qty: 9 0RF Referrals Referrals: Dhiraj Myers, [Primary Care Provider] -
[2023-02-23] MEDS ORDERED: MoRPHine SULFATE 4 MG/ML 1 ML CARP\\VIAL IV STA (02:04)
--- NOTE | 2023-02-23 02:22 | History & Physical Report ---
Date of Service February 23, 2023 Assessment & Plan (1) Abdominal pain: Plan: 47year-old male with history of multiple admissions for alcoholism abdominal pain pancreatitis presents with abdominal pain and states he is drinking 6-7 beers a day. Abdominal pain Possible chronic pancreatitis Possible gastritis from his alcoholism Pain control Clears, IV fluids Continue home p.o. Protonix, IV Pepcid, GI consult in a.m. monitor in the hospital Alcoholism Alcohol withdrawal protocol with gabapentin and IV Ativan as needed IV thiamine and IV folic acid Monitor for alcohol withdrawal Diabetes Hyperglycemia Continue home Lantus. Sliding-scale. Monitor blood sugars and HbA1c levels History of PE Continue Eliquis DVT prophylaxis On Eliquis Disposition Monitor in med telemetry Full code History of Present Illness Chief Complaint: Abdominal pain Primary Care Provider: Dhiraj Myers, 47-year-old male with past medical significant for chronic alcohol abuse, ongoing alcoholism, chronic pancreatitis, GERD, Renae's esophagus, mood disorder, diabetes insulin requiring, history of PE recurrent on Eliquis, history of chronic pain, history of narcotic abuse, but multiple admissions for alcoholism and pancreatitis comes again with abdominal pain. Complains of abdominal pain all over the abdomen. Complains of some nausea,. Says he had a mild blood in the stools in the morning but that resolved now. Symptoms get chest pain but currently he does not have it. No shortness of breath. No feve rs. No headache. No earaches or runny nose or sore throat. No cough. Hematemesis stable. Patient states still drinking beer 6-7 a day. Allergies Allergy/AdvReac Type Severity Reaction Status Date / Time No Known Allergies Allergy Verified 02/22/23 23:05 Home Medications Medication Instructions Recorded Confirmed Type apixaban 5 mg tablet (Eliquis) 5 mg PO BID 08/17/22 02/22/23 History amitriptyline 50 mg tablet 50 mg PO QAM 01/03/23 02/22/23 History insulin glargine 100 unit/mL (3 22 unit subcut HS 01/03/23 02/22/23 History mL) subcutaneous pen (Lantus Solostar U-100 Insulin) pantoprazole 40 mg tablet,delayed 40 mg PO DAILY 01/03/23 02/22/23 History release oxycodone 5 mg tablet 5 mg PO Q8H PRN pain (scale score 01/05/23 02/22/23 Rx 7-10) #9 tabs Past Med/Surg History Medical History Abdominal pain Abdominal pain Abdominal pain, acute, epigastric Acute hyperglycemia Alcohol abuse (Unknown) Alcohol abuse Alcohol abuse Alcohol withdrawal Alcoholic ketosis Renae's esophagus (Unknown) "per EGD 11/23/09 " On 05/31/11 09:06 Martinez Jose wrote "per EGD 11/23/09 " Chest pain COVID-19 Depression Depression DM type 2 (diabetes mellitus, type 2) Encounter for alcohol abuse counseling and surveillance Encounter for pre-operative examination Encounter for tobacco use cessation counseling Epigastric abdominal pain H/O acute pancreatitis "recurrent" History of pulmonary embolism History of substance abuse Hyperglycemia Intentional drug overdose Lumbar degenerative disc disease Mood disorder Mood disorder Nausea & vomiting Neuropathy Pancreatic duct stones Pancreatitis Panic disorder Pulmonary embolism on chronic apixaban Retrosternal chest pain Suicidal ideation Suicidal ideation Suicide attempt Surgical History H/O esophagogastroduodenoscopy "EGD 11/23/2009- mild gastritis, suspicious for gastroparesis, Z-line irregular EUS 02/04/2010- mild chronic pancreatitis, pronounced cholesterolosis of gallbladder, no biliary dilation or stones, probable gastroparesis EGD 10/31/2014- gastritis" S/P lumbar fusion L4-S1 2014 Family History Father Alcohol abuse Social History Smoking Status: Never smoker Tobacco Type: Smokeless Tobacco (Dip or Chew) Second Hand Exposure: No; Do You Dip or Chew Tobacco: Yes; Hx Alcohol Use: Yes Alcohol type: beer Hx Substance Use: Yes Last Used Substance: Unknown Preferred Language: Romanian Communication Ability: Effective Medical Review Coordinator Required: No Beliefs That Will Affect Care: None marital status: Current Living Situation: Other Current Living Situation Comment: lives with mother How many Children do You have: 3 Feels Safe at Home: Yes Assistive Devices: None Review of Systems Review of Systems: All systems reviewed & are unremarkable except as noted in Subjective Physical Exam Physical Exam: General- Not in acute distress Head- atraumatic Eyes- PERRL ENT- oropharynx clear Neck- supple, no JVD Lungs- clear to auscultation and percussion Heart- regular rhythm; no murmur, no gallop, no rub appreciated Abdomen- normal bowel sounds, soft, diffuse tenderness present, no masses or hepatosplenomegaly Extremities- no pretibial edema, no calf tenderness; peripheral pulses intact Neuro- alert, oriented x 3; non focal. Skin- warm & dry Results & Data Results & Data Vital Signs (Past 12 Hours) Vital Signs Temp Pulse Resp BP Pulse Ox O2 Del Method 02/23/23 00:30 100 H 20 138/87 98 02/23/23 00:00 95 H 15 128/82 99 02/22/23 23:30 95 H 18 127/82 99 02/22/23 23:07 101 H 15 97 02/22/23 21:02 36.8 C 108 H 20 156/93 H 99 Room Air Diagnostic Findings Laboratory Results WBC 6.33 K/ul (4.8-10.8) 02/22/23 21:25 RBC 4.48 M/uL (4.70-6.10) L 02/22/23 21:25 Hgb 14.4 g/dl (14.0-18.0) 02/22/23 21:25 Hct 40.2 % (42.0-52.0) L 02/22/23 21:25 MCV 89.7 fL (80.0-100.0) 02/22/23 21:25 MCH 32.1 pg (25.0-34.0) 02/22/23 21:25 MCHC 35.8 g/dL (32.0-36.0) 02/22/23 21:25 RDW Std Deviation 36.6 fL (36.4-46.3) 02/22/23 21:25 RDW Coeff of Gucci 11.1 % (11.5-14.5) L 02/22/23 21:25 Plt Count 155 K/uL (130-400) 02/22/23 21:25 MPV 9.4 fL (9.4-12.4) 02/22/23 21:25 Immature Gran % (Auto) 0.2 % 02/22/23 21:25 Neut % (Auto) 55.2 % 02/22/23 21:25 Lymph % (Auto) 29.5 % 02/22/23 21:25 [place] % (Auto) 7.0 % 02/22/23 21:25 Eos % (Auto) 7.3 % 02/22/23 21:25 Baso % (Auto) 0.8 % 02/22/23 21:25 Neut # (Auto) 3.50 K/uL (1.40-6.50) 02/22/23 21:25 Lymph # (Auto) 1.87 K/uL (1.2-3.4) 02/22/23 21:25 [place] # (Auto) 0.44 K/uL (0.11-0.59) 02/22/23 21:25 Eos # (Auto) 0.46 K/uL (0-0.50) 02/22/23 21:25 Baso # (Auto) 0.05 K/uL (0-0.2) 02/22/23 21:25 Immature Gran # (Auto) 0.01 K/uL (0.01-0.20) 02/22/23 21:25 Sodium 130 mmol/L (136-145) L 02/22/23 21:25 Potassium 3.5 mmol/L (3.5-5.1) 02/22/23 21:25 Chloride 97 mmol/L (98-107) L 02/22/23 21:25 Carbon Dioxide 23 mmol/L (21-32) 02/22/23 21:25 Anion Gap 10 (3-11) 02/22/23 21:25 BUN 7 mg/dl (6-23) 02/22/23 21:25 Creatinine 0.91 mg/dl (0.6-1.4) 02/22/23 21:25 Est Cr Clr Drug Dosing 107.8 ml/min 02/22/23 21:25 Est GFR ( Amer) 114.3 ml/min 02/22/23 21:25 Est GFR (Non-Af Amer) 98.6 ml/min 02/22/23 21:25 BUN/Creatinine Ratio 7.7 (10-20) L 02/22/23 21:25 Glucose 304 mg/dl (70-99(Fasting)) H* 02/22/23 21:25 POC Glucose 325 mg/dl (70-99) H* 02/22/23 21:31 Calcium 9.3 mg/dl (8.6-10.3) 02/22/23 21:25 Total Bilirubin 0.5 mg/dl (0.2-1.0) 02/22/23 21:25 AST 23 U/L (13-39) 02/22/23 21:25 ALT 16 U/L (7-52) 02/22/23 21:25 Alkaline Phosphatase 71 U/L (34-104) 02/22/23 21:25 Troponin I High Sens < 2.3 pg/ml (0-20) 02/22/23 21:25 Total Protein 7.4 gm/dl (6.0-8.3) 02/22/23 21:25 Albumin 4.1 gm/dl (3.4-5.0) 02/22/23 21:25 Globulin 3.3 gm/dl (2.5-4.0) 02/22/23 21:25 Albumin/Globulin Ratio 1.2 (0.9-2) 02/22/23 21:25 Lipase 58 U/L (11-82) 02/22/23 21:25 SARS-CoV-2, RNA, NAAT NEGATIVE (NEGATIVE) 02/23/23 00:04 ECG Additional Comments: ECG sinus tachycardia [address] changes Code Status & VTE Plan VTE Prophylaxis Plan VTE Prophylaxis will be ordered: Yes
[2023-02-23] MEDS ORDERED: Ativan IV Alcohol Withdrawal--Active Protocol IV PRN (02:49)
[2023-02-23] MEDS ORDERED: GLUCAGON FOR INJ 1 MG VIAL SQ PRN (02:49)
[2023-02-23] MEDS ORDERED: MoRPHine SULFATE 4 MG/ML 1 ML CARP\\VIAL IV PRN (02:49)
[2023-02-23] MEDS ORDERED: GLUCOSE 10 TAB/TUBE PO PRN (02:49)
[2023-02-23] MEDS ORDERED: CARBOHYDRATES FOR HYPOGLYCEMIA PO PRN (02:49)
[2023-02-23] MEDS ORDERED: GLUCOSE 40% GEL 15 GM TUBE PO PRN (02:49)
[2023-02-23] MEDS ORDERED: GABAPENTIN 1200MG ALCOHOL WITHDRAWAL LOAD PO STA (02:49)
[2023-02-23] MEDS ORDERED: DEXTROSE 50% 50 ML SYRINGE IV PRN (02:49)
[2023-02-23] MEDS ORDERED: LORazepam 2 MG/1 ML VIAL IV PRN ×2 (02:49)
[2023-02-23] MEDS ORDERED: NITROGLYCERIN SL 0.4 MG/TAB TAB SL PRN (02:49)
[2023-02-23] MEDS ORDERED: GABAPENTIN 600 MG TAB PO ONE (03:00)
[2023-02-23] MEDS: SODIUM CHLORIDE 0.9% 1000ML 1,000 ML IV SCH ×3 (03:20→18:23)
[2023-02-23] MEDS ORDERED: ACETAMINOPHEN 500 MG TAB PO PRN (07:21)
[2023-02-23 08:04] LABS: Basophils # (auto) 0.05 K/uL (0-0.2); Eosinophils # (auto) 0.45 K/uL (0-0.50); Eosinophils % (auto) 9.1 %; Hematocrit (blood only) 36.9 % (42.0-52.0); Hemoglobin 13.5 g/dl (14.0-18.0); Lymphocytes # (auto) 1.62 K/uL (1.2-3.4); Lymphocytes % (auto) 32.7 %; Mean Corpuscular Hemoglobin 32.1 pg (25.0-34.0); Mean Corpuscular Hgb Conc 36.6 g/dL (32.0-36.0); Mean Corpuscular Volume 87.9 fL (80.0-100.0); Mean Platelet Volume 9.5 fL (9.4-12.4); Monocytes % (auto) 10.1 %; Neutrophils # (auto) 2.33 K/uL (1.40-6.50); Neutrophils % (auto) 47.1 %; Platelet Count 150 K/uL (130-400); RDW Coefficient of Variation 11.1 % (11.5-14.5); RDW Standard Deviation 35.7 fL (36.4-46.3); White Blood Count 4.95 K/ul (4.8-10.8)
[2023-02-23 08:24] LABS: BUN Creatinine Ratio 7.4 (10-20); Calcium 8.6 mg/dl (8.6-10.3); Creatinine Clr Calc Pharmacy 144.2 ml/min; Est GFR (Non-African American) 112.1 ml/min; Magnesium 1.7 mg/dl (1.7-2.4); Potassium 3.4 mmol/L (3.5-5.1)
[2023-02-23] MEDS: AMITRIPTYLINE HCL 50 MG TAB PO SCH (08:54)
[2023-02-23] MEDS: PANTOprazole 40 MG TAB PO SCH (08:55)
[2023-02-23] MEDS: APIXABAN 5 MG TABLET PO SCH ×2 (08:56→20:41)
[2023-02-23] MEDS: GABAPENTIN 600 MG TAB PO SCH ×3 (08:56→23:27)
[2023-02-23] MEDS: INSULIN ASPART PER UNIT CHARGE SC SCH ×4 (08:57→20:37)
[2023-02-23] MEDS: FAMOTIDINE 20 MG in SYRINGE 3 ML IV SCH ×2 (09:02→20:37)
[2023-02-23] MEDS: THIAMINE HCL 100 MG in SYRINGE 9 ML IV SCH (09:02)
[2023-02-23] MEDS: ONDANSETRON INJ 2 MG/ML 2 ML VIAL IV PRN ×2 (09:02→20:36)
[2023-02-23] MEDS: FOLIC ACID 1 MG in SYRINGE 9.8 ML IV SCH (09:02)
--- NOTE | 2023-02-23 09:02 | Gastrointestinal Consultation ---
Date of Consultation February 23, 2023 Assessment & Plan (1) Abdominal pain: Plan 47 year old male with history of ongoing ETOH abuse, chronic pancreatitis, presenting with abd pain, normal lfts and normal lipase, CTAP w/ calcifications in the pancreatic head with severe pancreatic atrophy, likely sequelae of previous pancreatiti but no acute findings - ETOH cessation was discussed and encouraged - ETOH withdrwawl protocol - May have liquids today - Liquid Carafate four times daily x 10 days - Discontinuation of chewing tobacco - LR for IVF maintenance - Anti-emetics PRN - Continue PPI - Trial of Bentyl 10 mg TID - Will discuss timing of EGD/EUS and colonoscopy with attending Thank you for allowing us to participate in the care of this patient. Please call with any acute changes, questions or concerns. Please see addendum below with additional recommendation from my supervising physician. Supervising Physician Co-Signing Physician Notes I performed a history and physical examination of the patient today, including specifically on physical exam - soft abdomen. I have discussed the patient's management with the advanced practitioner. Please refer to the nurse kim stinson's note for the documented findings and plan of care. Mild exacerbation of chronic pancreatitis,. Plan for EUS as OP. Alcohol cessation. Recall GI if needed. History of Present Illness Reason for Consultation: abd pain Requesting Physician: Pilar Attending Physician: Elie Quezada MD History of Present Illness 47 year old male w/ history of T2DM, Renae's/GERD on PPI, PE/DVT on Eliquis chronic pancreatitis admitted with abdominal pain. Of note, to have OP EGD/EUS March and colonoscopy May. Pt notes that since last admission/discharge he resumed ETOH use. Suggests 6-10 beers daily. No liquid. Suggests that yesterday, developed severe abd pain with nausea/vomiting. No black or bloody emesis. No change in bowel habits. No black or bloody stools. Weight stable. No fever, chills, CP, SOB. CTAP 2022: Calcifications in the pancreatic head with severe pancreatic atrophy, likely sequelae of previous pancreatitis.Cholecystectomy. Diverticulosis, without acute diverticulitis. No small bowel obstruction. No free intraperitoneal air. Allergies Allergy/AdvReac Type Severity Reaction Status Date / Time No Known Allergies Allergy Verified 02/22/23 23:05 Home Medications Medication Instructions Recorded Confirmed Type apixaban 5 mg tablet (Eliquis) 5 mg PO BID 08/17/22 02/22/23 History amitriptyline 50 mg tablet 50 mg PO QAM 01/03/23 02/22/23 History insulin glargine 100 unit/mL (3 22 unit subcut HS 01/03/23 02/22/23 History mL) subcutaneous pen (Lantus Solostar U-100 Insulin) pantoprazole 40 mg tablet,delayed 40 mg PO DAILY 01/03/23 02/22/23 History release oxycodone 5 mg tablet 5 mg PO Q8H PRN pain (scale score 01/05/23 02/22/23 Rx 7-10) #9 tabs Patient History Medical History Abdominal pain Abdominal pain Abdominal pain, acute, epigastric Acute hyperglycemia Alcohol abuse (Unknown) Alcohol abuse Alcohol abuse Alcohol withdrawal Alcoholic ketosis Renae's esophagus (Unknown) "per EGD 11/23/09 " On 05/31/11 09:06 Martinez Jose wrote "per EGD 11/23/09 " Chest pain COVID-19 Depression Depression DM type 2 (diabetes mellitus, type 2) Encounter for alcohol abuse counseling and surveillance Encounter for pre-operative examination Encounter for tobacco use cessation counseling Epigastric abdominal pain H/O acute pancreatitis "recurrent" History of pulmonary embolism History of substance abuse Hyperglycemia Intentional drug overdose Lumbar degenerative disc disease Mood disorder Mood disorder Nausea & vomiting Neuropathy Pancreatic duct stones Pancreatitis Panic disorder Pulmonary embolism on chronic apixaban Retrosternal chest pain Suicidal ideation Suicidal ideation Suicide attempt Surgical History H/O esophagogastroduodenoscopy "EGD 11/23/2009- mild gastritis, suspicious for gastroparesis, Z-line irregular EUS 02/04/2010- mild chronic pancreatitis, pronounced cholesterolosis of gallbladder, no biliary dilation or stones, probable gastroparesis EGD 10/31/2014- gastritis" S/P lumbar fusion L4-S1 2014 Family History Father Alcohol abuse Social History Smoking Status: Never smoker Tobacco Type: Smokeless Tobacco (Dip or Chew) Second Hand Exposure: No; Do You Dip or Chew Tobacco: Yes; Tobacco Cessation Education Requested by Patient: No Hx Alcohol Use: Yes Alcohol type: beer Hx Substance Use: Yes Last Used Substance: Unknown Preferred Language: Tajik Communication Ability: Effective Stripe Marker Required: No Beliefs That Will Affect Care: None marital status: Current Living Situation: Other Current Living Situation Comment: lives with mother How many Children do You have: 3 Other Information That Helps Us Care for You: No Feels Safe at Home: Yes Safety Concerns: Feels Safe At This Time Assistive Devices: None Review of Systems Review of Systems: All systems reviewed & are unremarkable except as noted in HPI & below Physical Exam Constitutional: WD/WN, vitals as above Respiratory: normal respiratory effort, lungs clear to auscultation Cardiovascular: Rate/Rhythm: regular rate and regular rhythm Gastrointestinal (Abdomen): Percussion/Palpation: + abdomen tender and abdomen soft; no guarding and abdomen not rigid Skin: no rashes, warm and dry Results & Data Vital Signs (Past 12 Hours) Vital Signs Temp Pulse Pulse Pulse Resp BP BP 02/23/23 07:29 36.5 C 78 18 140/81 02/23/23 02:51 98 H 02/23/23 03:01 36.4 C L 95 H 18 131/82 02/23/23 02:00 90 17 139/83 02/23/23 01:30 92 H 14 134/78 02/23/23 01:00 99 H 14 136/83 02/23/23 00:30 100 H 20 138/87 02/23/23 00:00 95 H 15 128/82 02/22/23 23:30 95 H 18 127/82 02/22/23 23:07 101 H 15 02/22/23 21:02 36.8 C 108 H 20 156/93 H Pulse Ox O2 Del Method 02/23/23 07:29 97 Room Air 02/23/23 02:51 02/23/23 03:01 99 Room Air 02/23/23 02:00 99 02/23/23 01:30 99 02/23/23 01:00 100 02/23/23 00:30 98 02/23/23 00:00 99 02/22/23 23:30 99 02/22/23 23:07 97 07/19/23 21:02 99 Room Air Laboratory Results 02/23/23 02/23/23 02/23/23 Range/Units 07:27 07:09 07:09 WBC (4.8-10.8) K/ul RBC (4.70-6.10) M/uL Hgb (14.0-18.0) g/dl Hct (42.0-52.0) % MCV (80.0-100.0) fL MCH (25.0-34.0) pg MCHC (32.0-36.0) g/dL RDW Std Deviation (36.4-46.3) fL RDW Coeff of Gucci (11.5-14.5) % Plt Count (130-400) K/uL MPV (9.4-12.4) fL Immature Gran % (Auto) % Neut % (Auto) % Lymph % (Auto) % [place] % (Auto) % Eos % (Auto) % Baso % (Auto) % Neut # (Auto) (1.40-6.50) K/uL Lymph # (Auto) (1.2-3.4) K/uL [place] # (Auto) (0.11-0.59) K/uL Eos # (Auto) (0-0.50) K/uL Baso # (Auto) (0-0.2) K/uL Immature Gran # (Auto) (0.01-0.20) K/uL Sodium 139 D (136-145) mmol/L Potassium 3.4 L (3.5-5.1) mmol/L Chloride 108 H (98-107) mmol/L Carbon Dioxide 24 (21-32) mmol/L Anion Gap 7 (3-11) BUN 5 L (6-23) mg/dl Creatinine 0.68 (0.6-1.4) mg/dl Est Cr Clr Drug Dosing 144.2 ml/min Est GFR ( Amer) 130.0 ml/min Est GFR (Non-Af Amer) 112.1 ml/min BUN/Creatinine Ratio 7.4 L (10-20) Glucose 112 H (70-99(Fasting)) mg/dl POC Glucose 118 H (70-99) mg/dl Estimat Average Glucose Pending Hemoglobin A1c Pending Calcium 8.6 (8.6-10.3) mg/dl Magnesium 1.7 (1.7-2.4) mg/dl Total Bilirubin (0.2-1.0) mg/dl AST (13-39) U/L ALT (7-52) U/L Alkaline Phosphatase (34-104) U/L Troponin I High Sens (0-20) pg/ml Total Protein (6.0-8.3) gm/dl Albumin (3.4-5.0) gm/dl Globulin (2.5-4.0) gm/dl Albumin/Globulin Ratio (0.9-2) Lipase (11-82) U/L SARS-CoV-2, RNA, NAAT (NEGATIVE) 02/23/23 02/23/23 02/23/23 Range/Units 07:09 02:58 00:04 WBC 4.95 (4.8-10.8) K/ul RBC 4.20 L (4.70-6.10) M/uL Hgb 13.5 L (14.0-18.0) g/dl Hct 36.9 L (42.0-52.0) % MCV 87.9 (80.0-100.0) fL MCH 32.1 (25.0-34.0) pg MCHC 36.6 H (32.0-36.0) g/dL RDW Std Deviation 35.7 L (36.4-46.3) fL RDW Coeff of Gucci 11.1 L (11.5-14.5) % Plt Count 150 (130-400) K/uL MPV 9.5 (9.4-12.4) fL Immature Gran % (Auto) 0.0 % Neut % (Auto) 47.1 % Lymph % (Auto) 32.7 % [place] % (Auto) 10.1 % Eos % (Auto) 9.1 % Baso % (Auto) 1.0 % Neut # (Auto) 2.33 (1.40-6.50) K/uL Lymph # (Auto) 1.62 (1.2-3.4) K/uL [place] # (Auto) 0.50 (0.11-0.59) K/uL Eos # (Auto) 0.45 (0-0.50) K/uL Baso # (Auto) 0.05 (0-0.2) K/uL Immature Gran # (Auto) 0.00 L (0.01-0.20) K/uL Sodium (136-145) mmol/L Potassium (3.5-5.1) mmol/L Chloride (98-107) mmol/L Carbon Dioxide (21-32) mmol/L Anion Gap (3-11) BUN (6-23) mg/dl Creatinine (0.6-1.4) mg/dl Est Cr Clr Drug Dosing ml/min Est GFR ( Amer) ml/min Est GFR (Non-Af Amer) ml/min BUN/Creatinine Ratio (10-20) Glucose (70-99(Fasting)) mg/dl POC Glucose 117 H (70-99) mg/dl Estimat Average Glucose Hemoglobin A1c Calcium (8.6-10.3) mg/dl Magnesium (1.7-2.4) mg/dl Total Bilirubin (0.2-1.0) mg/dl AST (13-39) U/L ALT (7-52) U/L Alkaline Phosphatase (34-104) U/L Troponin I High Sens (0-20) pg/ml Total Protein (6.0-8.3) gm/dl Albumin (3.4-5.0) gm/dl Globulin (2.5-4.0) gm/dl Albumin/Globulin Ratio (0.9-2) Lipase (11-82) U/L SARS-CoV-2, RNA, NAAT NEGATIVE (NEGATIVE) 02/22/23 02/22/23 02/22/23 Range/Units 21:31 21:25 21:25 WBC (4.8-10.8) K/ul RBC (4.70-6.10) M/uL Hgb (14.0-18.0) g/dl Hct (42.0-52.0) % MCV (80.0-100.0) fL MCH (25.0-34.0) pg MCHC (32.0-36.0) g/dL RDW Std Deviation (36.4-46.3) fL RDW Coeff of Gucci (11.5-14.5) % Plt Count (130-400) K/uL MPV (9.4-12.4) fL Immature Gran % (Auto) % Neut % (Auto) % Lymph % (Auto) % [place] % (Auto) % Eos % (Auto) % Baso % (Auto) % Neut # (Auto) (1.40-6.50) K/uL Lymph # (Auto) (1.2-3.4) K/uL [place] # (Auto) (0.11-0.59) K/uL Eos # (Auto) (0-0.50) K/uL Baso # (Auto) (0-0.2) K/uL Immature Gran # (Auto) (0.01-0.20) K/uL Sodium 130 L (136-145) mmol/L Potassium 3.5 (3.5-5.1) mmol/L Chloride 97 L (98-107) mmol/L Carbon Dioxide 23 (21-32) mmol/L Anion Gap 10 (3-11) BUN 7 (6-23) mg/dl Creatinine 0.91 (0.6-1.4) mg/dl Est Cr Clr Drug Dosing 107.8 ml/min Est GFR ( Amer) 114.3 ml/min Est GFR (Non-Af Amer) 98.6 ml/min BUN/Creatinine Ratio 7.7 L (10-20) Glucose 304 H* (70-99(Fasting)) mg/dl POC Glucose 325 H* (70-99) mg/dl Estimat Average Glucose Hemoglobin A1c Calcium 9.3 (8.6-10.3) mg/dl Magnesium (1.7-2.4) mg/dl Total Bilirubin 0.5 (0.2-1.0) mg/dl AST 23 (13-39) U/L ALT 16 (7-52) U/L Alkaline Phosphatase 71 (34-104) U/L Troponin I High Sens < 2.3 (0-20) pg/ml Total Protein 7.4 (6.0-8.3) gm/dl Albumin 4.1 (3.4-5.0) gm/dl Globulin 3.3 (2.5-4.0) gm/dl Albumin/Globulin Ratio 1.2 (0.9-2) Lipase 58 (11-82) U/L SARS-CoV-2, RNA, NAAT NEGATIVE (NEGATIVE) 02/22/23 Range/Units 21:25 WBC 6.33 (4.8-10.8) K/ul RBC 4.48 L (4.70-6.10) M/uL Hgb 14.4 (14.0-18.0) g/dl Hct 40.2 L (42.0-52.0) % MCV 89.7 (80.0-100.0) fL MCH 32.1 (25.0-34.0) pg MCHC 35.8 (32.0-36.0) g/dL RDW Std Deviation 36.6 (36.4-46.3) fL RDW Coeff of Gucci 11.1 L (11.5-14.5) % Plt Count 155 (130-400) K/uL MPV 9.4 (9.4-12.4) fL Immature Gran % (Auto) 0.2 % Neut % (Auto) 55.2 % Lymph % (Auto) 29.5 % [place] % (Auto) 7.0 % Eos % (Auto) 7.3 % Baso % (Auto) 0.8 % Neut # (Auto) 3.50 (1.40-6.50) K/uL Lymph # (Auto) 1.87 (1.2-3.4) K/uL [place] # (Auto) 0.44 (0.11-0.59) K/uL Eos # (Auto) 0.46 (0-0.50) K/uL Baso # (Auto) 0.05 (0-0.2) K/uL Immature Gran # (Auto) 0.01 (0.01-0.20) K/uL Sodium (136-145) mmol/L Potassium (3.5-5.1) mmol/L Chloride (98-107) mmol/L Carbon Dioxide (21-32) mmol/L Anion Gap (3-11) BUN (6-23) mg/dl Creatinine (0.6-1.4) mg/dl Est Cr Clr Drug Dosing ml/min Est GFR ( Amer) ml/min Est GFR (Non-Af Amer) ml/min BUN/Creatinine Ratio (10-20) Glucose (70-99(Fasting)) mg/dl POC Glucose (70-99) mg/dl Estimat Average Glucose Hemoglobin A1c Calcium (8.6-10.3) mg/dl Magnesium (1.7-2.4) mg/dl Total Bilirubin (0.2-1.0) mg/dl AST (13-39) U/L ALT (7-52) U/L Alkaline Phosphatase (34-104) U/L Troponin I High Sens (0-20) pg/ml Total Protein (6.0-8.3) gm/dl Albumin (3.4-5.0) gm/dl Globulin (2.5-4.0) gm/dl Albumin/Globulin Ratio (0.9-2) Lipase (11-82) U/L SARS-CoV-2, RNA, NAAT (NEGATIVE)
[2023-02-23 09:37] LABS: Estimated Average Glucose 232 mg/dl; Hemoglobin A1C 9.7 % (4.5-5.6)
[2023-02-23] MEDS: LORazepam 2 MG/1 ML VIAL IV PRN ×3 (12:04→23:24)
[2023-02-23] MEDS: traMADol HCL 50 MG TABLET PO PRN ×2 (12:04→18:23)
--- NOTE | 2023-02-23 13:13 | Communication Note ---
Date of Service: February 23, 2023 Patient seen and examined at bedside. He reports abdominal pain; requesting for narcotics. No episode of chest pain, shortness of breath, nausea, vomiting. On physical examination; Constitutional: WD/WN, vitals as above, NAD, sitting up in bed, pleasant, conversing easily Respiratory: normal respiratory effort, lungs clear to auscultation, no wheeze, rales, rhonchi. Normal insp/exp effort, no accessory muscle use Cardiovascular: RRR, no murmur, no edema Vessels: no JVD or carotid bruit Chest: normal inspection of chest Abdomen: normal bowel sounds, soft, nontender, no hepatosplenomegaly Musculoskeletal: no cyanosis or clubbing, extremities motor strength 5/5 Skin: no rashes, warm and dry normal turgor Neurologic: PERRL, EOMI, accommodation nl, no face palsy, no dysarthria CN's II- XI intact bilaterally and moves all extremities Psychiatric: A+Ox3, euthymic affect Assessment/plan Chronic pancreatitis; multiple admissions for the same issue. History of alcohol use disorder resulting in multiple episode of acute pancreatitis. CT abdomen pelvis done on February 13 shows finding consistent with chronic pancreatitis. Appreciate GI input. Alcohol use disordercontinue on alcohol withdrawal protocol Type 2 diabetes mellituscontinue insulin
--- NOTE | 2023-02-23 14:36 | Electrocardiogram Report ---
Test Reason : Blood Pressure : / mmHG Vent. Rate : 101 BPM Atrial Rate : 101 BPM P-R Int : 200 ms QRS Dur : 078 ms QT Int : 324 ms P-R-T Axes : 073 055 059 degrees QTc Int : 420 ms Poor data quality, interpretation may be adversely affected Sinus tachycardia Otherwise normal ECG When compared with ECG of 13-FEB-2023 20:49, Non-specific change in ST segment in Anterior leads Confirmed by Danilo Grimes ([id number]) on 02/23/2023 2:35:44 PM Referred By: REFERRED SELF Confirmed By:Jere Grimes
[2023-02-23] MEDS: MoRPHine SULFATE 2 MG/ML CARP IV PRN (15:02)
[2023-02-23] MEDS ORDERED: MoRPHine SULFATE 2 MG/ML CARP IV STA (20:25)
[2023-02-23] MEDS ORDERED: LANTUS PER UNIT CHARGE SC SCH (21:00)
[2023-02-24] MEDS: traMADol HCL 50 MG TABLET PO PRN ×3 (00:23→16:10)
[2023-02-24] MEDS: MoRPHine SULFATE 2 MG/ML CARP IV PRN (04:24)
[2023-02-24] MEDS: SODIUM CHLORIDE 0.9% 1000ML 1,000 ML IV SCH (04:28)
[2023-02-24] MEDS: ONDANSETRON INJ 2 MG/ML 2 ML VIAL IV PRN (04:44)
[2023-02-24 06:25] LABS: BUN Creatinine Ratio 3.8 (10-20); Calcium 9.2 mg/dl (8.6-10.3); Creatinine Clr Calc Pharmacy 125.7 ml/min; Est GFR (African American) 122.8 ml/min; Magnesium 1.6 mg/dl (1.7-2.4); Potassium 3.7 mmol/L (3.5-5.1)
[2023-02-24] MEDS: GABAPENTIN 600 MG TAB PO SCH ×2 (06:32→16:10)
[2023-02-24] MEDS: AMITRIPTYLINE HCL 50 MG TAB PO SCH (07:37)
[2023-02-24] MEDS: LORazepam 2 MG/1 ML VIAL IV PRN (07:54)
[2023-02-24] MEDS: PANTOprazole 40 MG TAB PO SCH (07:55)
[2023-02-24] MEDS: APIXABAN 5 MG TABLET PO SCH (07:55)
[2023-02-24] MEDS: FAMOTIDINE 20 MG in SYRINGE 3 ML IV SCH (07:59)
[2023-02-24] MEDS: INSULIN ASPART PER UNIT CHARGE SC SCH ×2 (08:00→13:10)
[2023-02-24 11:55] VITALS: TEMP 97.5; O2SAT 98
[2023-02-24] MEDS: FOLIC ACID 1 MG in SYRINGE 9.8 ML IV SCH (12:15)
[2023-02-24] MEDS: THIAMINE HCL 100 MG in SYRINGE 9 ML IV SCH (12:15)
[2023-02-24] MEDS ORDERED: MoRPHine SULFATE 2 MG/ML CARP IV STA (12:40)
--- NOTE | 2023-02-24 13:09 | Hospitalist Progress Note ---
Date of Service February 24, 2023 Assessment & Plan (1) Abdominal pain: Plan: 47year-old male with history of multiple admissions for alcoholism abdominal pain pancreatitis presents with abdominal pain and states he is drinking 6-7 beers a day. Abdominal pain chronic pancreatitis Possible gastritis from his alcoholism Pain control Advance diet as possible Continue home p.o. Protonix, IV Pepcid, GI consulted; recommend EUS as outpatient. Alcohol cessation. monitor in the hospital Alcohol use disorder Alcohol withdrawal protocol with gabapentin and IV Ativan as needed IV thiamine and IV folic acid Monitor for alcohol withdrawal Diabetes Hyperglycemia Continue home Lantus. Sliding-scale. Monitor blood sugars and HbA1c levels History of PE Continue Eliquis DVT prophylaxis On Eliquis Disposition Monitor in med telemetry Full code Admission and Anticipated Discharge Date Admission Date: February 23, 2023 Subjective Patient seen and examined at bedside. Reports epigastric pain; asking for narcotics. Review of Systems Review of Systems: All systems reviewed & are unremarkable except as noted in Subjective Physical Exam Physical Exam: General- Not in acute distress Head- atraumatic Eyes- PERRL ENT- oropharynx clear Neck- supple, no JVD Lungs- clear to auscultation and percussion Heart- regular rhythm; no murmur, no gallop, no rub appreciated Abdomen- normal bowel sounds, soft, diffuse tenderness present, no masses or hepatosplenomegaly Extremities- no pretibial edema, no calf tenderness; peripheral pulses intact Neuro- alert, oriented x 3; non focal. Skin- warm & dry Results & Data Results & Data Vital Signs (Past 12 Hours) Vital Signs Temp Pulse Pulse Pulse Resp BP BP 02/24/23 11:55 36.4 C L 80 18 120/75 02/24/23 08:00 73 02/24/23 07:47 36.5 C 77 18 129/80 02/24/23 04:00 36.5 C 96 H 18 131/85 02/24/23 01:29 36.8 C 91 H 18 L 18 127/71 Pulse Ox O2 Del Method 02/24/23 11:55 98 Room Air 02/24/23 08:00 02/24/23 07:47 99 Room Air 02/24/23 04:00 99 Room Air 02/24/23 01:29 97 Room Air Laboratory Results Laboratory Results WBC 4.95 K/ul (4.8-10.8) 02/23/23 07:09 RBC 4.20 M/uL (4.70-6.10) L 02/23/23 07:09 Hgb 13.5 g/dl (14.0-18.0) L 02/23/23 07:09 Hct 36.9 % (42.0-52.0) L 02/23/23 07:09 MCV 87.9 fL (80.0-100.0) 02/23/23 07:09 MCH 32.1 pg (25.0-34.0) 02/23/23 07:09 MCHC 36.6 g/dL (32.0-36.0) H 02/23/23 07:09 RDW Std Deviation 35.7 fL (36.4-46.3) L 02/23/23 07:09 RDW Coeff of Gucci 11.1 % (11.5-14.5) L 02/23/23 07:09 Plt Count 150 K/uL (130-400) 02/23/23 07:09 MPV 9.5 fL (9.4-12.4) 02/23/23 07:09 Immature Gran % (Auto) 0.0 % 02/23/23 07:09 Neut % (Auto) 47.1 % 02/23/23 07:09 Lymph % (Auto) 32.7 % 02/23/23 07:09 [place] % (Auto) 10.1 % 02/23/23 07:09 Eos % (Auto) 9.1 % 02/23/23 07:09 Baso % (Auto) 1.0 % 02/23/23 07:09 Neut # (Auto) 2.33 K/uL (1.40-6.50) 02/23/23 07:09 Lymph # (Auto) 1.62 K/uL (1.2-3.4) 02/23/23 07:09 [place] # (Auto) 0.50 K/uL (0.11-0.59) 02/23/23 07:09 Eos # (Auto) 0.45 K/uL (0-0.50) 02/23/23 07:09 Baso # (Auto) 0.05 K/uL (0-0.2) 02/23/23 07:09 Immature Gran # (Auto) 0.00 K/uL (0.01-0.20) L 02/23/23 07:09 Sodium 136 mmol/L (136-145) 02/24/23 05:46 Potassium 3.7 mmol/L (3.5-5.1) 02/24/23 05:46 Chloride 104 mmol/L (98-107) 02/24/23 05:46 Carbon Dioxide 29 mmol/L (21-32) 02/24/23 05:46 Anion Gap 3 (3-11) 02/24/23 05:46 BUN 3 mg/dl (6-23) L 02/24/23 05:46 Creatinine 0.78 mg/dl (0.6-1.4) 02/24/23 05:46 Est Cr Clr Drug Dosing 125.7 ml/min 02/24/23 05:46 Est GFR ( Amer) 122.8 ml/min 02/24/23 05:46 Est GFR (Non-Af Amer) 106.0 ml/min 02/24/23 05:46 BUN/Creatinine Ratio 3.8 (10-20) L 02/24/23 05:46 Glucose 155 mg/dl (70-99(Fasting)) H 02/24/23 05:46 POC Glucose 188 mg/dl (70-99) H 02/24/23 11:29 Estimat Average Glucose 232 mg/dl 02/23/23 07:09 Hemoglobin A1c 9.7 % (4.5-5.6) H 02/23/23 07:09 Calcium 9.2 mg/dl (8.6-10.3) 02/24/23 05:46 Magnesium 1.6 mg/dl (1.7-2.4) L 02/24/23 05:46 Total Bilirubin 0.5 mg/dl (0.2-1.0) 02/22/23 21:25 AST 23 U/L (13-39) 02/22/23 21:25 ALT 16 U/L (7-52) 02/22/23 21:25 Alkaline Phosphatase 71 U/L (34-104) 02/22/23 21:25 Troponin I High Sens < 2.3 pg/ml (0-20) 02/22/23 21:25 Total Protein 7.4 gm/dl (6.0-8.3) 02/22/23 21:25 Albumin 4.1 gm/dl (3.4-5.0) 02/22/23 21:25 Globulin 3.3 gm/dl (2.5-4.0) 02/22/23 21:25 Albumin/Globulin Ratio 1.2 (0.9-2) 02/22/23 21:25 Lipase 58 U/L (11-82) 02/22/23 21:25 SARS-CoV-2, RNA, NAAT NEGATIVE (NEGATIVE) 02/23/23 00:04
--- NOTE | 2023-02-24 15:58 | Discharge Summary ---
Date of Service February 24, 2023 Admission HPI Per Admitting Provider 47-year-old male with past medical significant for chronic alcohol abuse, ongoing alcoholism, chronic pancreatitis, GERD, Renae's esophagus, mood disorder, diabetes insulin requiring, history of PE recurrent on Eliquis, history of chronic pain, history of narcotic abuse, but multiple admissions for alcoholism and pancreatitis comes again with abdominal pain. Complains of abdominal pain all over the abdomen. Complains of some nausea,. Says he had a mild blood in the stools in the morning but that resolved now. Symptoms get chest pain but currently he does not have it. No shortness of breath. No fevers. No headache. No earaches or runny nose or sore throat. No cough. Hematemesis stable. Patient states still drinking beer 6-7 a day. Admission Exam Per Admitting Provider General- Not in acute distress Head- atraumatic Eyes- PERRL ENT- oropharynx clear Neck- supple, no JVD Lungs- clear to auscultation and percussion Heart- regular rhythm; no murmur, no gallop, no rub appreciated Abdomen- normal bowel sounds, soft, diffuse tenderness present, no masses or hepatosplenomegaly Extremities- no pretibial edema, no calf tenderness; peripheral pulses intact Neuro- alert, oriented x 3; non focal. Skin- warm & dry Principal Diagnosis Chronic pancreatitis Alcohol use disorder Discharge Exam General- Not in acute distress Head- atraumatic Eyes- PERRL ENT- oropharynx clear Neck- supple, no JVD Lungs- clear to auscultation and percussion Heart- regular rhythm; no murmur, no gallop, no rub appreciated Abdomen- normal bowel sounds, soft, diffuse tenderness present, no masses or hepatosplenomegaly Extremities- no pretibial edema, no calf tenderness; peripheral pulses intact Neuro- alert, oriented x 3; non focal. Skin- warm & dry Discharge Data Allergies Allergy/AdvReac Type Severity Reaction Status Date / Time No Known Allergies Allergy Verified 02/22/23 23:05 Consultations 02/22/23 23:45 ED Decision to Admit Stat 02/23/23 08:00 Consult Gastroenterology Routine Diabetes Follow up Diabetes Follow-up Needed for HgbA1c >9% Hospital Course (1) Abdominal pain: 47year-old male with history of multiple admissions for alcoholism abdominal pain with pancreatitis presents with abdominal pain and states he is drinking 6- 7 beers a day. Patient has known history of chronic pancreatitis secondary to multiple recurrent episodes of alcoholic pancreatitis. He was admitted to the telemetry floor; started on IV hydration and pain medications. GI was consulted; recommend alcohol cessation and outpatient EUS. Patient was also placed on alcohol withdrawal protocol. Patient diet was advanced; tolerated well. He was discharged home with instruction to follow-up with PCP. He was also recommended to abstain from alcohol. He was asked to obtain referral for pain management as outpatient. Patient was agreeable with the plan Please note the above document was generated using voice recognition software. It may contain grammatical, syntax or spelling errors. Any formal questions or concerns about the content, text or information contained within the body of this dictation should be directly addressed to the provider for clarification Total Time Total Time Spent Total Time Spent (In Minutes): 35 Discharge Plan Discharge Items Patient Disposition: Home - Self-Care Reason For Visit: ABDOMINAL PAIN Discharge Diagnosis: Chronic pancreatitis Activity: Resume your previous activity Non-emergency contact: Primary Care Provider Call non-emergency contact if: you have any medication questions Follow-up/Referrals: Dhiraj Myers DO [Primary Care Provider] - (Date & Time 03/03/2023 11:00 AM Dhiraj Myers DO [facility] ) Diet: Regular Addtl Attending Provider Instructions: You were admitted here with chronic pancreatitis. Please abstain from alcohol. Please follow up with PCP. Please ask your PCP to refer you to pain management. Pending Studies at Discharge: No Stand-Alone Forms: My [facility], Smoking Cessation Medications and DC Order Prescriptions: New tramadol 50 mg tablet 50 mg PO DAILY PRN (Reason: pain) Qty: 10 0RF Continued Eliquis 5 mg tablet 5 mg PO BID amitriptyline 50 mg tablet 50 mg PO QAM pantoprazole 40 mg tablet,delayed release (DR/EC) 40 mg PO DAILY insulin glargine [Lantus Solostar U-100 Insulin] 100 unit/mL (3 mL) insulin pen 22 unit subcut HS Discontinued oxycodone 5 mg Tablet 5 mg PO Q8H PRN (Reason: pain (scale score 7-10)) Qty: 9 0RF Discharge Orders: Discharge Order (Routine); Ordered 02/24/23 Ordered By: Elie Quezada Admission Data Admit Date/Time: 02/23/23 02:09 Attending Provider: Elie Quezada Admit Provider: Jed Sousa Primary Care Provider: Dhiraj Myers Other Providers: Jed Sousa ; Ino Alvares ; Riley Lowery ; Jen Reynolds ; Roselyn Peters ; Mila Lovelace ; Ijeoma Goins ; Deneen ashraf,Jarad ; Homero Mullen ; Deborah Molina ; Sanjay Bass ; Colton Moreland ; Christina Gill ; Margaret Bangeas ; Marika Parrish ; So Prakash ; Camila Gentile ; Ye Tsang ; Brian Barrett ; Yue Pena ; Asaf Marshall Jr
[2023-02-24 16:19] VITALS: BP 131/85; PULSE 18
[2023-02-25] MEDS ORDERED: GABAPENTIN 600 MG TAB PO SCH (03:00)
[2023-02-26] MEDS ORDERED: GABAPENTIN 600 MG TAB PO SCH (15:00)
== END 2023-02-24 17:34 | disposition home or self-care (01) | DRG 440 ==
LOC: ED 20:50 → 2N 02-23 02:09
DX: Z86.711 Personal history of pulmonary embolism; F10.20 Alcohol dependence, uncomplicated; K21.9 Gastro-esophageal reflux disease without esophagitis; K86.0 Alcohol-induced chronic pancreatitis; Z79.4 Long term (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; Z79.899 Other long term (current) drug therapy; G89.29 Other chronic pain; Z79.01 Long term (current) use of anticoagulants; Z20.822 Contact with and (suspected) exposure to COVID-19; Z86.59 Personal history of other mental and behavioral disorders; E11.65 Type 2 diabetes mellitus with hyperglycemia; K22.70 Barrett's esophagus without dysplasia; F32.A Depression, unspecified; Z72.0 Tobacco use

== ENCOUNTER 2023-06-22 21:44 | Inpatient (IN) ==
[2023-06-22 22:20] LABS: Basophils # (auto) 0.05 K/uL (0.00-0.20); Basophils % (auto) 0.8 %; Eosinophils % (auto) 4.8 %; Hematocrit (blood only) 44.8 % (42.0-52.0); Hemoglobin 16.2 g/dl (14.0-18.0); Immature Granulocytes # (auto) 0.01 K/uL (0.01-0.20); Immature Granulocytes % (auto) 0.2 %; Lymphocytes # (auto) 1.63 K/uL (1.20-3.40); Lymphocytes % (auto) 26.3 %; Mean Corpuscular Hgb Conc 36.2 g/dL (32.0-36.0); Mean Corpuscular Volume 91.2 fL (80.0-100.0); Mean Platelet Volume 9.7 fL (9.4-12.4); Monocytes # (auto) 0.49 K/uL (0.11-0.59); Monocytes % (auto) 7.9 %; Neutrophils # (auto) 3.72 K/uL (1.40-6.50); Platelet Count 159 K/uL (130-400); RDW Coefficient of Variation 11.3 % (11.5-14.5); RDW Standard Deviation 38.4 fL (36.4-46.3); Red Blood Count 4.91 M/uL (4.70-6.10)
[2023-06-22 22:39] LABS: Albumin Globulin Ratio 1.3 (0.9-2); Albumin Level 4.4 gm/dl (3.4-5.0); BUN Creatinine Ratio 6.3 (10-20); Calcium 10.2 mg/dl (8.6-10.3); Creatinine Clr Calc Pharmacy 102.2 ml/min; Est GFR (African American) 107.1 ml/min; Est GFR (Non-African American) 92.4 ml/min; Globulin 3.4 gm/dl (2.5-4.0); Potassium 4.2 mmol/L (3.5-5.1); Total Protein 7.8 gm/dl (6.0-8.3)
[2023-06-22] MEDS ORDERED: MULTI-VITAMIN INFUSION 10 ML, THIAMINE HCL 100 MG, FOLIC ACID 1 MG in SODIUM CHLORIDE 0... IV ONE (23:44)
[2023-06-22] MEDS ORDERED: LORazepam 1 MG in SYRINGE 0.5 ML IV PRN (23:44)
[2023-06-22] MEDS ORDERED: HYDROmorphone INJ 0.5 MG/0.5 ML SYR IV STA (23:44)
[2023-06-22] MEDS ORDERED: SODIUM CHLORIDE 0.9% 1,000 ML IV ONE (23:45)
[2023-06-22] MEDS ORDERED: FAMOTIDINE 20MG IV PUSH 20 MG/5 ML SYR IV STA (23:45)
[2023-06-23] MEDS ORDERED: NovoLIN-R INSULIN PER UNIT CHARGE SC STA (00:12)
[2023-06-23] MEDS ORDERED: OPTIRAY 320 100ml IV ONE (00:33)
[2023-06-23] MEDS ORDERED: ONDANSETRON INJ 2 MG/ML 2 ML VIAL IV STA (01:19)
[2023-06-23] MEDS ORDERED: HYDROmorphone INJ 0.5 MG/0.5 ML SYR IV STA ×2 (01:19→10:11)
--- NOTE | 2023-06-23 02:01 | Emergency Department Note ---
Impression & Plan Intussusception, Chronic pancreatitis, Alcohol use disorder ED Provider Note CHIEF COMPLAINT: Abdominal pain HISTORY OF PRESENT ILLNESS: This 47-year-old male patient past medical history of alcohol abuse, chronic pancreatitis , PE and diabetes presents to the emergency department with complaints of epigastric abdominal pain, nausea and alcohol intoxication. He is concerned that he has pancreatitis. He states he has had this multiple times in the past. He also states he has been admitted to rehab 9 times but continues to drink approximately 12 to 15 cans of beer a day. REVIEW OF SYSTEMS: A review of systems was performed with positives and pertinent negatives listed in the history of present illness. 10 systems were reviewed and are otherwise negative. ALLERGIES: see below MEDICATIONS: see below PMH: see below SOCIAL HISTORY: see below DDx: Peptic ulcer disease, gastritis, pancreatitis, small bowel obstruction, diverticulitis, cholecystitis, hepatic failure among others. GENERAL: Chronically ill-appearing 47-year-old male, in no significant distress. HEENT: No scleral icterus, PERRLA, neck supple. MMM. Cardiovascular: Slightly tachycardic, regular rate and rhythm, no extra sounds. Pulmonary: Clear to auscultation bilaterally, normal work of breathing. Abdomen: Soft, tender to palpation of the epigastric region, nondistended, positive bowel sounds. Musculoskeletal: Atraumatic, no peripheral edema. Neurologic: Patient awake alert and oriented x 3, speech is clear Skin: Warm, dry, no rash EXTERNAL medical records reviewed: Discharge summary dated 02/24/2023 for alcohol use disorder and chronic pancreatitis, ER visit note dated 03/24, 04/22 and 05/09 for electrolyte abnormalities, abdominal pain/chronic pancreatitis. EMERGENCY DEPARTMENT COURSE/MDM: This patient was evaluated and appeared to be in some discomfort, but no distress. IV access was obtained and laboratory work was drawn. The patient was placed on the pneumatic tube fitter noted to be slightly tachycardic but regular. Laboratory work reveals a normal WBC and lipase. Patient is noted to be intoxicated. CT imaging of the abdomen pelvis reveals some dilated loop of bowel in the epigastric region, possible SBO but nothing definitive. Patient is not currently vomiting. He was placed on the alcohol withdrawal protocol. He was medicated with IV Dilaudid and Zofran after he stated the morphine given prior to my evaluation did not help. Patient does have a calcified pancreas on CT, it is difficult to know if he is suffering from an acute on chronic pancreatitis however the dilated small bowel loops are concerning for intussusception. General surgery was consulted and indicated this is medically managed primarily. Hospitalist service was consulted for admission and further management. The patient is aware of the plan and agrees. MONITORING: An order for cardiac monitoring was placed and the patient is noted to be in a sinus tachycardia at 102 beats per minute. RADIOLOGY: CT imaging of the abdomen pelvis to my interpretation possible dilated bowel loops in the epigastric region, possible SBO. No free air. Per radiology there is concern for intussusception. DISPOSITION: Admission Past Med/Surg History Medical History Abdominal pain Epigastric abdominal pain Pancreatic duct stones Abdominal pain, acute, epigastric Retrosternal chest pain History of pulmonary embolism Alcohol withdrawal Alcoholic ketosis COVID-19 Nausea & vomiting Alcohol abuse Abdominal pain Encounter for pre-operative examination Acute hyperglycemia Encounter for alcohol abuse counseling and surveillance Encounter for tobacco use cessation counseling Alcohol abuse Pancreatitis Neuropathy Hyperglycemia Chest pain Abdominal pain Pulmonary embolism on chronic apixaban Depression Mood disorder Intentional drug overdose Suicidal ideation Suicide attempt Mood disorder Suicidal ideation Lumbar degenerative disc disease Panic disorder Depression History of substance abuse Alcohol abuse (Unknown) H/O acute pancreatitis "recurrent" Renae's esophagus (Unknown) "per EGD 11/23/09 " On 05/31/11 09:06 Martinez Jose wrote "per EGD 11/23/09 " DM type 2 (diabetes mellitus, type 2) Surgical History S/P lumbar fusion L4-S1 2014 H/O esophagogastroduodenoscopy "EGD 11/23/2009- mild gastritis, suspicious for gastroparesis, Z-line irregular EUS 02/04/2010- mild chronic pancreatitis, pronounced cholesterolosis of gallbladder, no biliary dilation or stones, probable gastroparesis EGD 10/31/2014- gastritis" Family History Father Alcohol abuse Social History Smoking Status: Never smoker Tobacco Type: Smokeless Tobacco (Dip or Chew) Second Hand Exposure: No; Do You Dip or Chew Tobacco: Yes; Hx Alcohol Use: Yes Alcohol type: beer Hx Substance Use: No Preferred Language: German Communication Ability: Effective Antiquer Required: No Beliefs That Will Affect Care: None marital status: Current Living Situation: Parent Current Living Situation Comment: home with mom How many Children do You have: 3 Other Information That Helps Us Care for You: No Feels Safe at Home: Yes Safety Concerns: Feels Safe At This Time Assistive Devices: None Allergies Allergies Allergy/AdvReac Type Severity Reaction Status Date / Time No Known Allergies Allergy Verified 06/22/23 23:24 Home Meds Home Medications Medication Instructions Recorded Confirmed pantoprazole 40 mg tablet,delayed 40 mg PO DAILY 01/03/23 06/22/23 release apixaban 5 mg tablet (Eliquis) 5 mg PO DAILY 06/23/23 06/23/23 Previous Rx's Medication Instructions Recorded dicyclomine 10 mg capsule 10 mg PO TID PRN abdominal pain 06/25/23 #30 caps Results & Data (ED) Vital Signs Vital Signs - 24 hr 06/22/23 21:50 06/22/23 22:45 06/23/23 01:00 Temperature 36.6 C Temperature Source Temporal Artery Scan Pulse Rate 98 H Pulse Rate [Apical] 98 H 102 H Pulse Rhythm Regular Pulse Strength Normal Respiratory Rate 19 16 18 Respiratory Effort / Characteristics Non-Labored Spontaneous Respiratory Depth Normal Respiratory Pattern Regular Blood Pressure 137/98 Blood Pressure [Right Arm] 122/90 121/85 Blood Pressure Mean 111 Blood Pressure Mean [Right Arm] 100 97 Blood Pressure Position Sitting Pulse Oximetry 99 98 98 Oxygen Delivery Method Room Air Room Air Room Air Sepsis Recent Fever Within 48 Hours No Sepsis New/Unexplained Change in Mental Status N/A Sepsis Action Taken by Nursing No Action Required 06/23/23 02:00 Temperature Temperature Source Pulse Rate Pulse Rate [Apical] 105 H Pulse Rhythm Pulse Strength Respiratory Rate 18 Respiratory Effort / Characteristics Respiratory Depth Respiratory Pattern Blood Pressure Blood Pressure [Right Arm] 120/90 Blood Pressure Mean Blood Pressure Mean [Right Arm] 100 Blood Pressure Position Pulse Oximetry 97 Oxygen Delivery Method Room Air Sepsis Recent Fever Within 48 Hours Sepsis New/Unexplained Change in Mental Status Sepsis Action Taken by [facility] Medications Current Medication List: was personally reviewed by me Laboratory Data Attestation: I reviewed the patient's lab results. 06/25/23 05:18 06/25/23 05:18 Lab Results 06/22/23 06/23/23 06/23/23 Range/Units 22:05 01:32 02:30 WBC 6.20 (4.8-10.8) K/ul RBC 4.91 (4.70-6.10) M/uL Hgb 16.2 (14.0-18.0) g/dl Hct 44.8 (42.0-52.0) % MCV 91.2 (80.0-100.0) fL MCH 33.0 (25.0-34.0) pg MCHC 36.2 H (32.0-36.0) g/dL RDW Std Deviation 38.4 (36.4-46.3) fL RDW Coeff of Gucci 11.3 L (11.5-14.5) % Plt Count 159 (130-400) K/uL MPV 9.7 (9.4-12.4) fL Immature Gran % (Auto) 0.2 % Neut % (Auto) 60.0 % Lymph % (Auto) 26.3 % [place] % (Auto) 7.9 % Eos % (Auto) 4.8 % Baso % (Auto) 0.8 % Neut # (Auto) 3.72 (1.40-6.50) K/uL Lymph # (Auto) 1.63 (1.20-3.40) K/uL [place] # (Auto) 0.49 (0.11-0.59) K/uL Eos # (Auto) 0.30 (0.00-0.50) K/uL Baso # (Auto) 0.05 (0.00-0.20) K/uL Immature Gran # (Auto) 0.01 (0.01-0.20) K/uL PT 10.5 (9.0-12.0) Seconds INR 1.0 (0.9-1.1) Sodium 126 L (136-145) mmol/L Potassium 4.2 (3.5-5.1) mmol/L Chloride 91 L (98-107) mmol/L Carbon Dioxide 23 (21-32) mmol/L Anion Gap 12 H (3-11) BUN 6 (6-23) mg/dl Creatinine 0.96 (0.6-1.4) mg/dl Est Cr Clr Drug Dosing 102.2 ml/min Est GFR ( Amer) 107.1 ml/min Est GFR (Non-Af Amer) 92.4 ml/min BUN/Creatinine Ratio 6.3 L (10-20) Glucose 324 H* (70-99(Fasting)) mg/dl POC Glucose 186 H (70-99) mg/dl Osmolality 343 H (280-300) mOsm/kg Calcium 10.2 (8.6-10.3) mg/dl Magnesium 1.8 (1.7-2.4) mg/dl Total Bilirubin 1.0 (0.2-1.0) mg/dl AST 48 H (13-39) U/L ALT 49 (7-52) U/L Alkaline Phosphatase 83 (34-104) U/L Total Protein 7.8 (6.0-8.3) gm/dl Albumin 4.4 (3.4-5.0) gm/dl Globulin 3.4 (2.5-4.0) gm/dl Albumin/Globulin Ratio 1.3 (0.9-2) Amylase 24 L (25-115) U/L Lipase 11 (11-82) U/L TSH Cancelled Urine Color Yellow Urine Appearance Clear (Clear) Urine pH 5.0 (4.5-7.5) Ur Specific Roy 1.013 (1.000-1.030) Urine Protein Negative (Negative) Urine Glucose (UA) 2+ H (Negative) Urine Ketones Negative (Negative) Urine Blood Negative (Negative) Urine Nitrite Negative (Negative) Urine Bilirubin Negative (Negative) Urine Urobilinogen Negative (Negative) Ur Leukocyte Esterase Negative (Negative) Ethyl Alcohol mg/dL 256.1 H (<10.0) mg/dl Administered Medications Discontinued Medications Apixaban (Apixaban 5 Mg Tablet) 5 mg PO DAILY RAMOS Stop: 07/24/23 15:44 Last Admin: 06/25/23 07:45 Dose: 5 mg Documented By: Admin: 06/24/23 16:23 Dose: 5 mg Documented By: GIANNA Dextrose (Dextrose 50% 50 Ml Syringe) 25 - 50 ml IV UD PRN; Protocol PRN Reason: Hypoglycemia Protocol Stop: 07/23/23 06:45 Last Admin: 06/23/23 07:56 Dose: 25 ml Documented By: FLORINA Folic Acid (Folic Acid 1 Mg Tab) 1 mg PO QAM [facility] Stop: 07/24/23 08:59 Last Admin: 06/25/23 07:50 Dose: Not Given Documented By: Admin: 06/24/23 08:07 Dose: Not Given Documented By: GIANNA Heparin Sodium/Dextrose (Heparin Iv Adult Wt-Based Low-Dose *No* Bolus Protocol) 1 each IV ONE STA; Protocol Stop: 06/23/23 05:12 Last Admin: 06/23/23 06:02 Dose: Not Given Documented By: DOMINIC Hydromorphone HCl (Hydromorphone Inj 0.5 Mg/0.5 Ml Syr) 0.5 mg IV NOW STA Stop: 06/22/23 23:45 Last Admin: 06/23/23 00:08 Dose: 0.5 mg Documented By: JAKY Hydromorphone HCl (Hydromorphone Inj 0.5 Mg/0.5 Ml Syr) 0.25 mg IV NOW STA Stop: 06/23/23 01:20 Last Admin: 06/23/23 01:28 Dose: 0.25 mg Documented By: JAKY Hydromorphone HCl (Hydromorphone Inj 0.5 Mg/0.5 Ml Syr) 0.25 mg IV Q1H PRN PRN Reason: Pain Stop: 07/07/23 04:14 Last Admin: 06/23/23 04:22 Dose: 0.25 mg Documented By: DOMINIC Hydromorphone HCl (Hydromorphone Inj 0.5 Mg/0.5 Ml Syr) 0.5 mg IV Q6H PRN PRN Reason: Mod-Sev Pain (Scale 4-10) Stop: 07/07/23 10:08 Last Admin: 06/25/23 09:03 Dose: 0.5 mg Documented By: Admin: 06/25/23 03:06 Dose: 0.5 mg Documented By: Admin: 06/24/23 21:18 Dose: 0.5 mg Documented By: Admin: 06/24/23 14:59 Dose: 0.5 mg Documented By: Admin: 06/24/23 09:05 Dose: 0.5 mg Documented By: Admin: 06/24/23 03:01 Dose: 0.5 mg Documented By: Admin: 06/23/23 20:58 Dose: 0.5 mg Documented By: Admin: 06/23/23 14:59 Dose: 0.5 mg Documented By: [id number] Hydromorphone HCl (Hydromorphone Inj 0.5 Mg/0.5 Ml Syr) 0.5 mg IV NOW STA Stop: 06/23/23 10:12 Last Admin: 06/23/23 11:13 Dose: 0.5 mg Documented By: Lorazepam 1 mg/ Syringe 1 mls @ 2 mls/min IV ONE PRN; Protocol PRN Reason: EtoH Withdrawal AWSS 6-10 Last Admin: 06/23/23 00:06 Dose: 2 mls/min Documented By: JAKY Multivitamins 10 ml/ Thiamine HCl 100 mg/ Folic Acid 1 mg/Sodium Chloride 1,011.2 mls @ 500 mls/hr IV .Q2H2M ONE Stop: 06/23/23 01:45 Last Infusion: 06/23/23 02:27 Dose: Infused Documented By: Admin: 06/23/23 00:09 Dose: 500 mls/hr Documented By: JAKY Sodium Chloride (Nss) 1,000 mls @ 999 mls/hr IV .Q1H1M ONE Stop: 06/23/23 00:45 Last Infusion: 06/23/23 02:28 Dose: Infused Documented By: Admin: 06/23/23 00:05 Dose: 999 mls/hr Documented By: JAKY Famotidine (Pepcid 20mg Iv Push) 20 mg in 5 mls @ 2.5 mls/min IV NOW STA Stop: 06/22/23 23:46 Last Admin: 06/23/23 00:08 Dose: 2.5 mls/min Documented By: JAKY Promethazine HCl 6.25 mg/ (Sodium Chloride) 50.25 mls @ 201 mls/hr IV Q6H PRN PRN Reason: Nausea And Vomiting Stop: 07/23/23 04:42 Last Infusion: 06/24/23 10:21 Dose: Infused Documented By: Admin: 06/24/23 09:55 Dose: 201 mls/hr Documented By: Infusion: 06/23/23 11:56 Dose: Infused Documented By: Admin: 06/23/23 11:41 Dose: 201 mls/hr Documented By: Albumin Human (Albumin 25%) 25 gm in 100 mls @ 50 mls/hr IV ONE ONE Stop: 06/23/23 07:07 Last Infusion: 06/23/23 07:37 Dose: Infused Documented By: Admin: 06/23/23 05:15 Dose: 50 mls/hr Documented By: DOMINIC Heparin Sodium/Dextrose (Heparin Sodium/Dextrose) 25,000 units in 500 mls @ 22 mls/hr IV .[id number] [facility]; Protocol Stop: 07/23/23 05:29 Last Titration: 06/24/23 15:40 Dose: Infused Documented By: GIANNA Co-signed By: SHERITA Admin: 06/24/23 07:10 Dose: 1,100 units/hr, 22 mls/hr Documented By: GIANNA Co-signed By: GRACIELA Titration: 06/24/23 05:50 Dose: Infused Documented By: GIANNA Co-signed By: GRACIELA Titration: 06/23/23 19:21 Dose: 1,100 units/hr, 22 mls/hr Documented By: KALIN Co-signed By: [id number] Titration: 06/23/23 15:08 Dose: 1,100 units/hr, 22 mls/hr Documented By: [id number] Co-signed By: JLM Titration: 06/23/23 14:00 Dose: 1,100 units/hr, 22 mls/hr Documented By: Co-signed By: KELSEY Admin: 06/23/23 06:01 Dose: 950 units/hr, 19 mls/hr Documented By: DOMINIC Co-signed By: STEPHEN Sodium Chloride (1/2 Nss) 1,000 mls @ 999 mls/hr IV .Q1H1M STA Stop: 06/23/23 08:01 Last Infusion: 06/23/23 08:48 Dose: Infused Documented By: Admin: 06/23/23 07:40 Dose: 999 mls/hr Documented By: FLORINA Potassium Chloride/Dextrose/Sod Cl (D5w And 1/2nss + 20meq Kcl) 20 meq in 1,000 mls @ 60 mls/hr IV .[id number] ONE Stop: 06/23/23 23:41 Last Infusion: 06/23/23 22:30 Dose: Infused Documented By: Admin: 06/23/23 11:14 Dose: 60 mls/hr Documented By: Admin: 06/23/23 08:02 Dose: Not Given Documented By: FLORINA Heparin Sodium (Porcine) 3,000 (units/ Syringe) 3 mls @ 10 mls/min IV ONE STA Stop: 06/23/23 15:12 Last Admin: 06/23/23 16:19 Dose: 10 mls/min Documented By: [id number] Co-signed By: GRACIELA Sodium Chloride (1/2 Nss) 1,000 mls @ 40 mls/hr IV .Q24H ONE Stop: 06/24/23 22:17 Last Infusion: 06/23/23 23:30 Dose: Infused Documented By: Admin: 06/23/23 22:29 Dose: 40 mls/hr Documented By: IBRAHIMA Potassium Chloride/Sodium Chloride (Normal Saline W/20 Meq Kcl) 20 meq in 1,000 mls @ 40 mls/hr IV .Q24H RAMOS; Protocol Stop: 07/24/23 03:29 Last Admin: 06/25/23 03:06 Dose: 40 mls/hr Documented By: Infusion: 06/25/23 03:06 Dose: Infused Documented By: Admin: 06/24/23 03:36 Dose: 40 mls/hr Documented By: KALIN Insulin Aspart (Insulin Aspart Per Unit Charge) 0 units SC ACHS [facility] Stop: 07/23/23 06:45 Last Admin: 06/23/23 20:37 Dose: Not Given Documented By: KALIN Co-signed By: LANA Admin: 06/23/23 17:31 Dose: Not Given Documented By: [id number] Co-signed By: TRAVIS Admin: 06/23/23 12:54 Dose: Not Given Documented By: Admin: 06/23/23 08:07 Dose: Not Given Documented By: FLORINA Co-signed By: MADAY Insulin Aspart (Insulin Aspart Per Unit Charge) 0 units SC Q6 [facility]OS Stop: 07/24/23 05:59 Last Admin: 06/24/23 12:34 Dose: Not Given Documented By: GIANNA Co-signed By: GRACIELA Admin: 06/24/23 05:47 Dose: Not Given Documented By: KALIN Insulin Aspart (Insulin Aspart Per Unit Charge) 0 units SC ACHS [facility] Stop: 07/24/23 16:29 Last Admin: 06/25/23 09:01 Dose: 7 units Documented By: GIANNA Co-signed By: GRACIELA Admin: 06/24/23 23:32 Dose: Not Given Documented By: KALIN Co-signed By: LANA Admin: 06/24/23 17:53 Dose: 6 units Documented By: GIANNA Co-signed By: GRACIELA Insulin Glargine (Lantus Per Unit Charge) 5 units SQ HS [facility] Stop: 07/23/23 20:59 Last Admin: 06/24/23 23:57 Dose: Not Given Documented By: Admin: 06/23/23 20:37 Dose: Not Given Documented By: KALIN Insulin Glargine (Lantus Per Unit Charge) 10 units SQ HS [facility] Stop: 07/24/23 21:14 Last Admin: 06/24/23 23:33 Dose: Not Given Documented By: KALIN Insulin Human Regular (Novolin-R Insulin Per Unit Charge) 8 units SC NOW STA Stop: 06/23/23 00:13 Last Admin: 06/23/23 00:36 Dose: 8 units Documented By: JAKY Co-signed By: BÁRBARA Ioversol (Optiray 320 100ml) 100 ml IV ONCE ONE Stop: 06/23/23 00:34 Last Admin: 06/23/23 00:34 Dose: 91 ml Documented By: LUANN Multivitamins (Multivitamin Tab) 1 tab PO [facility] Stop: 07/24/23 08:59 Last Admin: 06/25/23 07:50 Dose: Not Given Documented By: Admin: 06/24/23 08:07 Dose: Not Given Documented By: GIANNA Ondansetron HCl (Ondansetron Inj 2 Mg/Ml 2 Ml Vial) 4 mg IV NOW STA Stop: 06/23/23 01:20 Last Admin: 06/23/23 01:28 Dose: 4 mg Documented By: JAKY Ondansetron HCl (Ondansetron Inj 2 Mg/Ml 2 Ml Vial) 4 mg IV Q6H PRN PRN Reason: Nausea And Vomiting Stop: 07/23/23 14:50 Last Admin: 06/25/23 11:26 Dose: 4 mg Documented By: Admin: 06/24/23 21:19 Dose: 4 mg Documented By: Admin: 06/24/23 03:11 Dose: 4 mg Documented By: Admin: 06/23/23 20:59 Dose: 4 mg Documented By: Admin: 06/23/23 15:40 Dose: 4 mg Documented By: [id number] Oxycodone HCl (Oxycodone Hcl Ir 5 Mg Tab (Immediate Release)) 5 mg PO Q4H PRN PRN Reason: Pain Stop: 07/07/23 04:42 Last Admin: 06/25/23 10:09 Dose: 5 mg Documented By: Admin: 06/25/23 06:00 Dose: 5 mg Documented By: Admin: 06/25/23 00:38 Dose: 5 mg Documented By: Admin: 06/24/23 18:30 Dose: 5 mg Documented By: Admin: 06/24/23 05:36 Dose: 5 mg Documented By: Admin: 06/24/23 00:41 Dose: 5 mg Documented By: Admin: 06/23/23 20:34 Dose: 5 mg Documented By: Admin: 06/23/23 16:35 Dose: 5 mg Documented By: [id number] Admin: 06/23/23 10:07 Dose: 5 mg Documented By: FLORINA Oxycodone HCl (Oxycodone Hcl Ir 5 Mg Tab (Immediate Release)) 5 mg PO NOW STA Stop: 06/23/23 05:08 Last Admin: 06/23/23 05:14 Dose: 5 mg Documented By: DOMINIC Pantoprazole Sodium (Pantoprazole 40 Mg Tab) 40 mg PO DAILY [facility]OS Stop: 07/23/23 08:59 Last Admin: 06/25/23 07:45 Dose: 40 mg Documented By: Admin: 06/24/23 08:04 Dose: 40 mg Documented By: Admin: 06/23/23 08:16 Dose: 40 mg Documented By: FLORINA Potassium Chloride (Potassium Chloride Crtab 20 Meq Tabcr) 40 meq PO NOW STA Stop: 06/23/23 07:03 Last Admin: 06/23/23 08:03 Dose: Not Given Documented By: FLORINA Thiamine HCl (Thiamine Hcl 100 Mg Tab) 100 mg PO QAM [facility] Stop: 07/24/23 08:59 Last Admin: 06/25/23 07:51 Dose: Not Given Documented By: Admin: 06/24/23 08:07 Dose: Not Given Documented By: GIANNA Imaging Data Radiologist's Impression: Abdomen/Pelvis CT 06/22/23 23:44 CR Exam(s): CT ABDOMEN + PELVIS With Contrast IV Amt: 91 ml optiray 320 EXAM: CT Abdomen and Pelvis With Intravenous Contrast CLINICAL HISTORY: Reason for exam: pancreatitis. TECHNIQUE: Axial computed tomography images of the abdomen and pelvis with intravenous contrast. CTDI is 20.09 mGy and DLP is 1008.11 mGy-cm. Automated exposure control was utilized for the study. A dose lowering technique was utilized adhering to the principles of ALARA. CONTRAST: Patient received 91 ml optiray 320 of IV contrast COMPARISON: CT Abdomen Pelvis dated may 09 2023 FINDINGS: Lung bases: Unremarkable. No mass. No consolidation. ABDOMEN: Liver: Unremarkable. No mass. Gallbladder and bile ducts: Cholecystectomy changes. No evidence of biliary dilatation. Pancreas: Diffuse pancreatic parenchymal calcifications which likely relate to chronic pancreatitis. Associated with this is pancreatic ductal dilatation measuring up to 6 mm. No gross findings to suggest acute pancreatitis. Consider correlation with lipase if there is further concern. Spleen: Unremarkable. No splenomegaly. Adrenals: Unremarkable. No mass. Kidneys and ureters: Unremarkable. No solid mass. No hydronephrosis. Stomach and bowel: Suspected left upper quadrant intussusception (series 2 image 31). No evidence of upstream bowel obstruction. Consider short-term interval follow-up imaging as an adult son bleed point is responsible. Multiple nondilated fluid-filled loops of small bowel without evidence of adjacent inflammatory change. Mild submucosal enhancement noted. Findings may relate to enteritis. PELVIS: Appendix: No findings to suggest acute appendicitis. Bladder: Unremarkable. No mass. Reproductive: Unremarkable as visualized. ABDOMEN and PELVIS: Intraperitoneal space: Unremarkable. No free air. No significant fluid collection. Bones/joints: L4-S1 posterior spinal fusion hardware. No acute fracture. No dislocation. Soft tissues: Umbilical hernia containing fat. Vasculature: Multiple collaterals adjacent to the spleen which likely relate to prior episodes splenic venous thrombosis. No abdominal aortic aneurysm. Lymph nodes: Unremarkable. No enlarged lymph nodes. IMPRESSION: 1. Suspected left upper quadrant intussusception (series 2 image 31). No evidence of upstream bowel obstruction. Consider short-term interval follow-up imaging as an adult son bleed point is responsible. 2. Multiple nondilated fluid-filled loops of small bowel without evidence of adjacent inflammatory change. Mild submucosal enhancement noted. Findings may relate to enteritis. 3. Diffuse pancreatic parenchymal calcifications which likely relate to chronic pancreatitis. Associated with this is pancreatic ductal dilatation measuring up to 6 mm. No gross findings to suggest acute pancreatitis. Consider correlation with lipase if there is further concern. 4. Multiple collaterals adjacent to the spleen which likely relate to prior episodes splenic venous thrombosis. 5. No evidence of biliary dilatation. Communications: Verify Receipt Electronically signed by: Vitaliy Talley MD 06/23/23 04:04 AM Chest X-Ray 06/23/23 04:36 XR chest 1V portable CLINICAL HISTORY: hyponatremia TECHNIQUE: Single frontal radiograph of the chest was obtained. Comparison: Comparison is made to chest radiograph 05/09/2023 FINDINGS: No lines and tubes are seen. The cardiomediastinal silhouette is normal. The lungs are clear. No evidence of pleural effusion or pneumothorax. IMPRESSION: No acute chest disease. ACT 112: Negative or not required by law. Electronically signed by: Kg Moreira M.D. 06/23/2023 8:24 AM Discharge Plan Visit Data Chief Complaint: Abdominal Pain Stated Complaint: stomach pain, chest pain, back pain ED Provider: Radha Jeong Discharge Problem: Intussusception, Chronic pancreatitis, Alcohol use disorder Patient Disposition: Admitted As Inpatient Discharge Instructions Interventions: ED Discharge Assessment Last Done: 06/23/23 14:02 Discharge Problem: Chronic pancreatitis Qualifiers: Pancreatitis type: alcohol induced Qualified Code(s): K86.0 - Alcohol-induced chronic pancreatitis
[2023-06-23 02:42] LABS: Appearance Urine Clear (Clear); Bilirubin Urine Negative (Negative); Blood Urine Negative (Negative); Color Urine Yellow; Glucose Urine UA 2+ (Negative); Ketones Urine Negative (Negative); Leukocyte Esterase Urine Negative (Negative); Nitrite Urine Negative (Negative); Protein Urine Negative (Negative); Specific Gravity Urine 1.013 (1.000-1.030); Urobilinogen Urine Negative (Negative)
--- NOTE | 2023-06-23 04:05 | CT Scan Report ---
Exam(s): CT ABDOMEN + PELVIS With Contrast IV Amt: 91 ml optiray 320 EXAM: CT Abdomen and Pelvis With Intravenous Contrast CLINICAL HISTORY: Reason for exam: pancreatitis. TECHNIQUE: Axial computed tomography images of the abdomen and pelvis with intravenous contrast. CTDI is 20.09 mGy and DLP is 1008.11 mGy-cm. Automated exposure control was utilized for the study. A dose lowering technique was utilized adhering to the principles of ALARA. CONTRAST: Patient received 91 ml optiray 320 of IV contrast COMPARISON: CT Abdomen Pelvis dated may 09 2023 FINDINGS: Lung bases: Unremarkable. No mass. No consolidation. ABDOMEN: Liver: Unremarkable. No mass. Gallbladder and bile ducts: Cholecystectomy changes. No evidence of biliary dilatation. Pancreas: Diffuse pancreatic parenchymal calcifications which likely relate to chronic pancreatitis. Associated with this is pancreatic ductal dilatation measuring up to 6 mm. No gross findings to suggest acute pancreatitis. Consider correlation with lipase if there is further concern. Spleen: Unremarkable. No splenomegaly. Adrenals: Unremarkable. No mass. Kidneys and ureters: Unremarkable. No solid mass. No hydronephrosis. Stomach and bowel: Suspected left upper quadrant intussusception (series 2 image 31). No evidence of upstream bowel obstruction. Consider short-term interval follow-up imaging as an adult son bleed point is responsible. Multiple nondilated fluid-filled loops of small bowel without evidence of adjacent inflammatory change. Mild submucosal enhancement noted. Findings may relate to enteritis. PELVIS: Appendix: No findings to suggest acute appendicitis. Bladder: Unremarkable. No mass. Reproductive: Unremarkable as visualized. ABDOMEN and PELVIS: Intraperitoneal space: Unremarkable. No free air. No significant fluid collection. Bones/joints: L4-S1 posterior spinal fusion hardware. No acute fracture. No dislocation. Soft tissues: Umbilical hernia containing fat. Vasculature: Multiple collaterals adjacent to the spleen which likely relate to prior episodes splenic venous thrombosis. No abdominal aortic aneurysm. Lymph nodes: Unremarkable. No enlarged lymph nodes. IMPRESSION: 1. Suspected left upper quadrant intussusception (series 2 image 31). No evidence of upstream bowel obstruction. Consider short-term interval follow-up imaging as an adult son bleed point is responsible. 2. Multiple nondilated fluid-filled loops of small bowel without evidence of adjacent inflammatory change. Mild submucosal enhancement noted. Findings may relate to enteritis. 3. Diffuse pancreatic parenchymal calcifications which likely relate to chronic pancreatitis. Associated with this is pancreatic ductal dilatation measuring up to 6 mm. No gross findings to suggest acute pancreatitis. Consider correlation with lipase if there is further concern. 4. Multiple collaterals adjacent to the spleen which likely relate to prior episodes splenic venous thrombosis. 5. No evidence of biliary dilatation. Communications: Verify Receipt Electronically signed by: Vitaliy Talley MD 06/23/23 04:04 AM
[2023-06-23] MEDS ORDERED: HYDROmorphone INJ 0.5 MG/0.5 ML SYR IV PRN ×2 (04:15→10:09)
[2023-06-23] MEDS ORDERED: ACETAMINOPHEN 500 MG TAB PO PRN (04:43)
--- NOTE | 2023-06-23 04:59 | Surgery Consultation ---
Date of Consultation June 23, 2023 Assessment & Plan (1) Abdominal pain: I discussed with the treating emergency room physician the patient is being admitted on the hospitalist service. From a surgical perspective we recommend proceeding as follows: It does not appear that the patient is grossly obstructed, however the interpreting radiologist could not exclude the possibility of intussusception on CT scan Patient should be made n.p.o. As the patient has not had any emesis in nearly 4 hours and his abdomen is soft and nondistended I feel we can withhold placing an NG tube at this time but if he does have clinical deterioration consideration of this modality will need to be reconsidered Patient should be hydrated with intravenous fluids with necessary corrections made to his electrolytes Analgesics to be provided Antiemetics to be provided I discussed the case with my attending physician Dr. Mcmillan we will plan conservative measures as outlined above without emergent surgical intervention for the present time. She will reevaluate the patient this morning and determine if any short-term interval imaging will be performed to further evaluate for the possibility of intussusception There is also concern that the patient's abdominal pain may be related to chronic pancreatitis as the patient does continue to consume alcoholic beverages on a daily basis and he does have evidence of chronic pancreatitis on CT scan I discussed with the medical service will be admitting the patient in detail be holding the patient's Eliquis code like the patient on low-dose intravenous heparin for DVT/PE prophylaxis. Supervising Physician Co-Signing Physician Notes Repeat LA decreasing. Follow up for return to normal. Continue NPO, IVF. Repeat CT with oral contrast discussed with radiologist, confirms there does not appear to be a persistent intussusception and could have been a physiologic appearance on the previous CT. Nor is there an appearance of a bowel obstruction at this time. Final report is also now provided. May consider small bowel follow through if the patient has not been able to be discharged over the weekend and still has symptoms. Otherwise, this can also be done as an outpatient. Patient states his pain is controlled with Dilaudid. Is passing flatus, still with mild nausea controlled with Zofran. Once nausea is resolved, provided he continues to pass flatus and abdominal pain is resolving, may start on clear liquids. Surgery administrative personal assistant will follow this weekend to guide whether or not it is ok to start clears. The patient may follow up with me as an outpatient if small bowel follow through is performed and reveals an abnormality and/or if he is discharged and needs an outpatient study. Outpatient colonoscopy may be a consideration as well as he has not yet had a screening examination. History of Present Illness Reason for Consultation: Abdominal pain with concern for intussusception History of Present Illness This is a 47-year-old male who presented to the emergency department secondary to abdominal pain. This patient is well-known to various providers at [facility] as the patient has a history of chronic pancreatitis related to sepsis and alcohol consumption. He presented to the emergency department secondary to 3 days of cramp-like abdominal pain which encompasses nearly his entire upper abdomen. He says the pain radiates to his back into his chest. He notes it is improved with medicines administered in the emergency department but is worse after eating. He has had associated nausea and vomiting without hematemesis and has not had any emesis in nearly 4 hours. He says that he has had some loose bowel movements earlier this morning without any blood or melena. He denies any fevers, shakes, or chills. Patient notes that he continues to consume alcohol drinking nearly 10-12 drinks per day with his most recent round of drinking being at approximate 6:00 PM on 06/22/2023. He does report prior abdominal surgeries in the form of an open appendectomy and a laparoscopic cholecystectomy. The patient has had previous admissions for small bowel obstruction most recently in January of this year which was successfully treated conservative manner without surgical intervention. Discussed with the medical service as determined that the patient only takes Eliquis once a day. Since arrival to the hospital the patient has had labs and imaging which I independently reviewed. A CT scan of the abdomen pelvis showed findings with a suspicion for a left upper quadrant intussusception with no evidence of upstream bowel obstruction. There are multiple nondilated fluid-filled loops of small bowel without adjacent inflammatory changes noted. There is also findings concerning for enteritis. There are no findings to suggest acute pancreatitis but diffuse chronic pancreatic parenchymal changes felt to be related to chronic pancreatitis were noted. Labs included CBC her white blood cell count was normal. His hemoglobin, hematocrit, and platelet count were normal. Chemistry profile showed sodium was 126 with a normal potassium. BUN and creatinine were both normal. Patient's glucose was elevated at 324. There is no elevation of his bilirubin, ALT, or alkaline phosphatase. AST is slight elevation at 48. His amylase and lipase were both nonelevated. Urinalysis was not taken of infection. Alcohol level was elevated to 56.1. At the time of my interview patient was resting comfortably in bed he does not appear to be in any distress. Allergies Allergy/AdvReac Type Severity Reaction Status Date / Time No Known Allergies Allergy Verified 06/22/23 23:24 Home Medications Medication Instructions Recorded Confirmed Type pantoprazole 40 mg tablet,delayed 40 mg PO DAILY 01/03/23 06/22/23 History release apixaban 5 mg tablet (Eliquis) 5 mg PO DAILY 06/23/23 06/23/23 History Patient History Medical History Abdominal pain Epigastric abdominal pain Pancreatic duct stones Abdominal pain, acute, epigastric Retrosternal chest pain History of pulmonary embolism Alcohol withdrawal Alcoholic ketosis COVID-19 Nausea & vomiting Alcohol abuse Abdominal pain Encounter for pre-operative examination Acute hyperglycemia Encounter for alcohol abuse counseling and surveillance Encounter for tobacco use cessation counseling Alcohol abuse Pancreatitis Neuropathy Hyperglycemia Chest pain Abdominal pain Pulmonary embolism on chronic apixaban Depression Mood disorder Intentional drug overdose Suicidal ideation Suicide attempt Mood disorder Suicidal ideation Lumbar degenerative disc disease Panic disorder Depression History of substance abuse Alcohol abuse (Unknown) H/O acute pancreatitis "recurrent" Renae's esophagus (Unknown) "per EGD 11/23/09 " On 05/31/11 09:06 Martinez Jose wrote "per EGD 11/23/09 " DM type 2 (diabetes mellitus, type 2) Surgical History S/P lumbar fusion L4-S1 2014 H/O esophagogastroduodenoscopy "EGD 11/23/2009- mild gastritis, suspicious for gastroparesis, Z-line irregular EUS 02/04/2010- mild chronic pancreatitis, pronounced cholesterolosis of gallbladder, no biliary dilation or stones, probable gastroparesis EGD 10/31/2014- gastritis" Family History Father Alcohol abuse Social History Smoking Status: Never smoker Tobacco Type: Smokeless Tobacco (Dip or Chew) Second Hand Exposure: No; Do You Dip or Chew Tobacco: Yes; Hx Alcohol Use: Yes Alcohol type: beer Hx Substance Use: No Preferred Language: Jordanian Communication Ability: Effective Administrative Analyst Required: No Beliefs That Will Affect Care: None marital status: Current Living Situation: Parent Current Living Situation Comment: home with mom How many Children do You have: 3 Other Information That Helps Us Care for You: No Feels Safe at Home: Yes Safety Concerns: Feels Safe At This Time Assistive Devices: None Review of Systems Constitutional: no fever and no chills Ear, Nose, Mouth, Throat: no ear pain Respiratory: no cough and no dyspnea Cardiovascular: + chest pain (Radiating from abdomen) Gastrointestinal: as per Subjective / HPI Genitourinary: no dysuria Musculoskeletal: + back pain (Radiating from abdomen) Integumentary: no rash Neurologic: no localized weakness Physical Exam Constitutional: + thin; no acute distress Eyes: no conjunctival abnormality ENMT: Ears: no hearing impairment and no external ear abnormality Mouth: no oropharynx abnormality Neck: trachea midline Respiratory: normal respiratory effort; no respiratory distress and no labored breathing There is no wheezing or use of accessory muscles noted with respirations Cardiovascular: Rate/Rhythm: regular rate and regular rhythm Gastrointestinal (Abdomen): At the time of my exam the patient's abdomen was noted to have positive bowel sounds. It is soft, nonrigid, nondistended. Patient did have some diffuse tenderness with palpation in the upper abdomen. There is no rebound tenderness but he did have some guarding noted. Musculoskeletal: No calf tenderness Skin: no rashes Neurologic: Patient is able to move all 4 extremities and follows simple commands without any noted focal deficits. He did appear to have a slight resting tremor noted. Psychiatric: A+Ox3, euthymic affect Results & Data Vital Signs (Past 12 Hours) Vital Signs Temp Pulse Pulse Resp BP BP Pulse Ox 06/23/23 04:23 106 H 20 120/79 96 06/23/23 02:00 105 H 18 120/90 97 06/23/23 01:00 102 H 18 121/85 98 06/22/23 22:45 98 H 16 122/90 98 06/22/23 21:50 36.6 C 98 H 19 137/98 99 O2 Del Method 06/23/23 04:23 Room Air 11/17/23 02:00 Room Air 06/23/23 01:00 Room Air 06/22/23 22:45 Room Air 06/22/23 21:50 Room Air PG Care Time/CCT Total # of Minutes Spent Total Time Spent with Patient: Total time spent is greater than 50% in coordination of care (as documented) at patient's floor/unit and/or counseling patient: Coding Level of Care Code 54962 IN/OBS CONSULT LVL 5,80M Diagnoses Abdominal pain R10.9
[2023-06-23] MEDS ORDERED: oxyCODONE HCL IR 5 MG TAB (IMMEDIATE RELEASE) PO STA (05:07)
[2023-06-23] MEDS ORDERED: ALBUMIN 25% 25 GM/100 ML VIAL IV ONE (05:08)
--- NOTE | 2023-06-23 05:09 | History & Physical Report ---
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 status. IV heparin while Eliquis on hold in anticipation of procedure. Analgesia, judicious narcotic use given history drug abuse as per records DT precautions, RHETT S at risk protocol for now basal bolus insulin, ISS BG goal 110-140, carb count coverage, update hemoglobin A1c DVT prophylaxis IV heparin Full code Text document was generated using [employer] voice recognition software. It may contain grammatical or spelling errors. Kindly contact undersigned for clarification of any documentation item in question. History of Present Illness Chief Complaint: Abdominal pain Primary Care Provider: Dhiraj Meyrs, History is obtained from the patient and records. 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 Last confinement February 2023 for chronic pancreatitis and alcohol abuse. Has not seen PCP on follow-up since discharge. Patient started drinking again 4 days ago. Subsequent achy lower abdominal pain going to the chest with bilious emesis. Chronic watery stools as per patient. IV insulin administered at the ER for BSG 300s. MEDICAL HISTORY: As above. SURGERIES: Appendectomy, cholecystectomy, vascular device placement, back surgery FAMILY HISTORY: mood disorder. Alcoholism, heart disease. 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 Allergies Allergy/AdvReac Type Severity Reaction Status Date / Time No Known Allergies Allergy Verified 06/22/23 23:24 Home Medications Medication Instructions Recorded Confirmed Type pantoprazole 40 mg tablet,delayed 40 mg PO DAILY 01/03/23 06/22/23 History release apixaban 5 mg tablet (Eliquis) 5 mg PO DAILY 06/23/23 06/23/23 History Past Med/Surg History Medical History Abdominal pain Epigastric abdominal pain Pancreatic duct stones Abdominal pain, acute, epigastric Retrosternal chest pain History of pulmonary embolism Alcohol withdrawal Alcoholic ketosis COVID-19 Nausea & vomiting Alcohol abuse Abdominal pain Encounter for pre-operative examination Acute hyperglycemia Encounter for alcohol abuse counseling and surveillance Encounter for tobacco use cessation counseling Alcohol abuse Pancreatitis Neuropathy Hyperglycemia Chest pain Abdominal pain Pulmonary embolism on chronic apixaban Depression Mood disorder Intentional drug overdose Suicidal ideation Suicide attempt Mood disorder Suicidal ideation Lumbar degenerative disc disease Panic disorder Depression History of substance abuse Alcohol abuse (Unknown) H/O acute pancreatitis "recurrent" Renae's esophagus (Unknown) "per EGD 11/23/09 " On 05/31/11 09:06 Martinez Jose wrote "per EGD 11/23/09 " DM type 2 (diabetes mellitus, type 2) Surgical History S/P lumbar fusion L4-S1 2014 H/O esophagogastroduodenoscopy "EGD 11/23/2009- mild gastritis, suspicious for gastroparesis, Z-line ir regular EUS 02/04/2010- mild chronic pancreatitis, pronounced cholesterolosis of gallbladder, no biliary dilation or stones, probable gastroparesis EGD 10/31/2014- gastritis" Family History Father Alcohol abuse Social History Smoking Status: Never smoker Tobacco Type: Smokeless Tobacco (Dip or Chew) Second Hand Exposure: No; Do You Dip or Chew Tobacco: Yes; Hx Alcohol Use: Yes Alcohol type: beer Hx Substance Use: Yes Last Used Substance: Unknown Preferred Language: Peruvian Communication Ability: Effective Hand Ii Thermal Cutter Required: No Beliefs That Will Affect Care: None marital status: Current Living Situation: Other Current Living Situation Comment: lives with mother How many Children do You have: 3 Feels Safe at Home: Yes Assistive Devices: None Review of Systems Review of Systems: As per HPI, all other systems reviewed and negative Physical Exam Physical Exam: GENERAL: Slightly uncomfortable, looks older than stated age, no respiratory distress SKIN: Normal color, warm HEENT: Alopecia, pink palpebral conjunctivae, no ptosis, dry buccal mucosa NECK : Supple, short neck, no tenderness CHEST : CTA, no tenderness HEART : Tachycardic, no obvious murmurs ABDOMEN: Some distention, epigastric tenderness EXTREMITIES : No LE swelling, no LE tenderness NEUROLOGIC : Coherent, no facial asymmetry, no other gross focality Results & Data Results & Data Vital Signs (Past 12 Hours) Vital Signs Temp Pulse Pulse Resp BP BP Pulse Ox 06/23/23 04:23 106 H 20 120/79 96 06/23/23 02:00 105 H 18 120/90 97 06/23/23 01:00 102 H 18 121/85 98 06/22/23 22:45 98 H 16 122/90 98 06/22/23 21:50 36.6 C 98 H 19 137/98 99 O2 Del Method 06/23/23 04:23 Room Air 06/23/23 02:00 Room Air 06/23/23 01:00 Room Air 06/22/23 22:45 Room Air 06/22/23 21:50 Room Air Laboratory Results Laboratory Results WBC 6.20 K/ul (4.8-10.8) 06/22/23 22:05 RBC 4.91 M/uL (4.70-6.10) 06/22/23 22:05 Hgb 16.2 g/dl (14.0-18.0) 06/22/23 22:05 Hct 44.8 % (42.0-52.0) 06/22/23 22:05 MCV 91.2 fL (80.0-100.0) 06/22/23 22:05 MCH 33.0 pg (25.0-34.0) 06/22/23 22:05 MCHC 36.2 g/dL (32.0-36.0) H 06/22/23 22:05 RDW Std Deviation 38.4 fL (36.4-46.3) 06/22/23 22:05 RDW Coeff of Gucci 11.3 % (11.5-14.5) L 06/22/23 22:05 Plt Count 159 K/uL (130-400) 06/22/23 22:05 MPV 9.7 fL (9.4-12.4) 06/22/23 22:05 Immature Gran % (Auto) 0.2 % 06/22/23 22:05 Neut % (Auto) 60.0 % 06/22/23 22:05 Lymph % (Auto) 26.3 % 06/22/23 22:05 Flagler % (Auto) 7.9 % 06/22/23 22:05 Eos % (Auto) 4.8 % 06/22/23 22:05 Baso % (Auto) 0.8 % 06/22/23 22:05 Neut # (Auto) 3.72 K/uL (1.40-6.50) 06/22/23 22:05 Lymph # (Auto) 1.63 K/uL (1.20-3.40) 06/22/23 22:05 Flagler # (Auto) 0.49 K/uL (0.11-0.59) 06/22/23 22:05 Eos # (Auto) 0.30 K/uL (0.00-0.50) 06/22/23 22:05 Baso # (Auto) 0.05 K/uL (0.00-0.20) 06/22/23 22:05 Immature Gran # (Auto) 0.01 K/uL (0.01-0.20) 06/22/23 22:05 Sodium 126 mmol/L (136-145) L 06/22/23 22:05 Potassium 4.2 mmol/L (3.5-5.1) 06/22/23 22:05 Chloride 91 mmol/L (98-107) L 06/22/23 22:05 Carbon Dioxide 23 mmol/L (21-32) 06/22/23 22:05 Anion Gap 12 (3-11) H 06/22/23 22:05 BUN 6 mg/dl (6-23) 06/22/23 22:05 Creatinine 0.96 mg/dl (0.6-1.4) 06/22/23 22:05 Est Cr Clr Drug Dosing 102.2 ml/min 06/22/23 22:05 Est GFR ( Amer) 107.1 ml/min 06/22/23 22:05 Est GFR (Non-Af Amer) 92.4 ml/min 06/22/23 22:05 BUN/Creatinine Ratio 6.3 (10-20) L 06/22/23 22:05 Glucose 324 mg/dl (70-99(Fasting)) H* 06/22/23 22:05 POC Glucose 186 mg/dl (70-99) H 06/23/23 01:32 Calcium 10.2 mg/dl (8.6-10.3) 06/22/23 22:05 Total Bilirubin 1.0 mg/dl (0.2-1.0) 06/22/23 22:05 AST 48 U/L (13-39) H 06/22/23 22:05 ALT 49 U/L (7-52) 06/22/23 22:05 Alkaline Phosphatase 83 U/L (34-104) 06/22/23 22:05 Total Protein 7.8 gm/dl (6.0-8.3) 06/22/23 22:05 Albumin 4.4 gm/dl (3.4-5.0) 06/22/23 22:05 Globulin 3.4 gm/dl (2.5-4.0) 06/22/23 22:05 Albumin/Globulin Ratio 1.3 (0.9-2) 06/22/23 22:05 Amylase 24 U/L (25-115) L 06/22/23 22:05 Lipase 11 U/L (11-82) 06/22/23 22:05 Urine Color Yellow 06/23/23 02:30 Urine Appearance Clear (Clear) 06/23/23 02:30 Urine pH 5.0 (4.5-7.5) 06/23/23 02:30 Ur Specific Alfred 1.013 (1.000-1.030) 06/23/23 02:30 Urine Protein Negative (Negative) 06/23/23 02:30 Urine Glucose (UA) 2+ (Negative) H 06/23/23 02:30 Urine Ketones Negative (Negative) 06/23/23 02:30 Urine Blood Negative (Negative) 06/23/23 02:30 Urine Nitrite Negative (Negative) 06/23/23 02:30 Urine Bilirubin Negative (Negative) 06/23/23 02:30 Urine Urobilinogen Negative (Negative) 06/23/23 02:30 Ur Leukocyte Esterase Negative (Negative) 06/23/23 02:30 Ethyl Alcohol mg/dL 256.1 mg/dl (<10.0) H 06/22/23 22:05 Impressions Abdomen/Pelvis CT 06/22/23 23:44 CR Exam(s): CT ABDOMEN + PELVIS With Contrast IV Amt: 91 ml optiray 320 EXAM: CT Abdomen and Pelvis With Intravenous Contrast CLINICAL HISTORY: Reason for exam: pancreatitis. TECHNIQUE: Axial computed tomography images of the abdomen and pelvis with intravenous contrast. CTDI is 20.09 mGy and DLP is 1008.11 mGy-cm. Automated exposure control was utilized for the study. A dose lowering technique was utilized adhering to the principles of ALARA. CONTRAST: Patient received 91 ml optiray 320 of IV contrast COMPARISON: CT Abdomen Pelvis dated may 09 2023 FINDINGS: Lung bases: Unremarkable. No mass. No consolidation. ABDOMEN: Liver: Unremarkable. No mass. Gallbladder and bile ducts: Cholecystectomy changes. No evidence of biliary dilatation. Pancreas: Diffuse pancreatic parenchymal calcifications which likely relate to chronic pancreatitis. Associated with this is pancreatic ductal dilatation measuring up to 6 mm. No gross findings to suggest acute pancreatitis. Consider correlation with lipase if there is further concern. Spleen: Unremarkable. No splenomegaly. Adrenals: Unremarkable. No mass. Kidneys and ureters: Unremarkable. No solid mass. No hydronephrosis. Stomach and bowel: Suspected left upper quadrant intussusception (series 2 image 31). No evidence of upstream bowel obstruction. Consider short-term interval follow-up imaging as an adult son bleed point is responsible. Multiple nondilated fluid-filled loops of small bowel without evidence of adjacent inflammatory change. Mild submucosal enhancement noted. Findings may relate to enteritis. PELVIS: Appendix: No findings to suggest acute appendicitis. Bladder: Unremarkable. No mass. Reproductive: Unremarkable as visualized. ABDOMEN and PELVIS: Intraperitoneal space: Unremarkable. No free air. No significant fluid collection. Bones/joints: L4-S1 posterior spinal fusion hardware. No acute fracture. No dislocation. Soft tissues: Umbilical hernia containing fat. Vasculature: Multiple collaterals adjacent to the spleen which likely relate to prior episodes splenic venous thrombosis. No abdominal aortic aneurysm. Lymph nodes: Unremarkable. No enlarged lymph nodes. IMPRESSION: 1. Suspected left upper quadrant intussusception (series 2 image 31). No evidence of upstream bowel obstruction. Consider short-term interval follow-up imaging as an adult son bleed point is responsible. 2. Multiple nondilated fluid-filled loops of small bowel without evidence of adjacent inflammatory change. Mild submucosal enhancement noted. Findings may relate to enteritis. 3. Diffuse pancreatic parenchymal calcifications which likely relate to chronic pancreatitis. Associated with this is pancreatic ductal dilatation measuring up to 6 mm. No gross findings to suggest acute pancreatitis. Consider correlation with lipase if there is further concern. 4. Multiple collaterals adjacent to the spleen which likely relate to prior episodes splenic venous thrombosis. 5. No evidence of biliary dilatation. Communications: Verify Receipt Electronically signed by: Vitaliy Talley MD 06/23/23 04:04 AM Diagnostic Findings Chest x-ray as per my interpretation atelectasis EKG as per my interpretation : Rate 90, NSR, normal axis, no ischemia
[2023-06-23] MEDS ORDERED: Heparin IV Adult Wt-Based Low-Dose *NO* Bolus Protocol IV STA (05:11)
[2023-06-23 05:15] LABS: Prothrombin Time 10.5 Seconds (9.0-12.0)
[2023-06-23] MEDS ORDERED: ACETAMINOPHEN 1,000 MG/100 ML VIAL IV PRN (05:18)
[2023-06-23] MEDS ORDERED: ACETAMINOPHEN 325 MG TAB PO PRN (05:18)
[2023-06-23] MEDS ORDERED: LORazepam 1 MG in SYRINGE 0.5 ML IV PRN (05:18)
[2023-06-23] MEDS: HEPARIN SODIUM/DEXTROSE 25,000 UNITS/500 ML BAG IV SCH (06:01)
[2023-06-23 06:42] LABS: Basophils # (auto) 0.04 K/uL (0.00-0.20); Basophils % (auto) 0.7 %; Eosinophils # (auto) 0.15 K/uL (0.00-0.50); Eosinophils % (auto) 2.6 %; Hematocrit (blood only) 40.1 % (42.0-52.0); Hemoglobin 14.2 g/dl (14.0-18.0); Immature Granulocytes # (auto) 0.01 K/uL (0.01-0.20); Immature Granulocytes % (auto) 0.2 %; Lymphocytes # (auto) 1.84 K/uL (1.20-3.40); Lymphocytes % (auto) 32.1 %; Mean Corpuscular Hemoglobin 32.3 pg (25.0-34.0); Mean Corpuscular Hgb Conc 35.4 g/dL (32.0-36.0); Mean Corpuscular Volume 91.3 fL (80.0-100.0); Mean Platelet Volume 9.6 fL (9.4-12.4); Monocytes # (auto) 0.66 K/uL (0.11-0.59); Monocytes % (auto) 11.5 %; Neutrophils # (auto) 3.04 K/uL (1.40-6.50); Neutrophils % (auto) 52.9 %; Platelet Count 192 K/uL (130-400); RDW Coefficient of Variation 11.2 % (11.5-14.5); RDW Standard Deviation 37.9 fL (36.4-46.3); Red Blood Count 4.39 M/uL (4.70-6.10); White Blood Count 5.74 K/ul (4.8-10.8)
[2023-06-23] MEDS ORDERED: GLUCOSE 40% GEL 15 GM TUBE PO PRN (06:46)
[2023-06-23] MEDS ORDERED: CARBOHYDRATES FOR HYPOGLYCEMIA PO PRN (06:46)
[2023-06-23] MEDS ORDERED: DEXTROSE 50% 50 ML SYRINGE IV PRN (06:46)
[2023-06-23] MEDS ORDERED: GLUCAGON FOR INJ 1 MG VIAL SQ PRN (06:46)
[2023-06-23] MEDS ORDERED: GLUCOSE 10 TAB/TUBE PO PRN (06:46)
[2023-06-23 06:49] LABS: Partial Thromboplastin Ratio 0.9; Partial Thromboplastin Time 25.4 Seconds (21.0-31.0)
[2023-06-23 06:55] LABS: Magnesium 1.8 mg/dl (1.7-2.4)
[2023-06-23 06:57] LABS: BUN Creatinine Ratio 4.9 (10-20); Calcium 9.3 mg/dl (8.6-10.3); Creatinine Clr Calc Pharmacy 119.6 ml/min; Est GFR (African American) 120.3 ml/min; Est GFR (Non-African American) 103.8 ml/min; Potassium 3.2 mmol/L (3.5-5.1)
[2023-06-23] MEDS ORDERED: SODIUM CHLORIDE 0.45 % 1,000 ML IV STA (07:01)
[2023-06-23] MEDS ORDERED: POTASSIUM CHLORIDE CRTAB 20 MEQ TABCR PO STA (07:02)
[2023-06-23] MEDS: D5W AND 1/2NSS + 20MEQ KCL 20 MEQ/1,000 ML BAG IV ONE ×2 (08:02→11:14)
[2023-06-23] MEDS: INSULIN ASPART PER UNIT CHARGE SC SCH ×4 (08:07→20:37)
[2023-06-23] MEDS: PANTOprazole 40 MG TAB PO SCH (08:16)
--- NOTE | 2023-06-23 08:25 | XRay Report ---
XR chest 1V portable CLINICAL HISTORY: hyponatremia TECHNIQUE: Single frontal radiograph of the chest was obtained. Comparison: Comparison is made to chest radiograph 05/09/2023 FINDINGS: No lines and tubes are seen. The cardiomediastinal silhouette is normal. The lungs are clear. No evid ence of pleural effusion or pneumothorax. IMPRESSION: No acute chest disease. ACT 112: Negative or not required by law. Electronically signed by: Kg Moreira M.D. 06/23/2023 8:24 AM
[2023-06-23 08:33] LABS: Thyroid Stimulating Hormone 2.828 uIu/ml (0.300-4.500)
[2023-06-23] MEDS ORDERED: LANTUS PER UNIT CHARGE SQ SCH (09:00)
[2023-06-23] MEDS: oxyCODONE HCL IR 5 MG TAB (IMMEDIATE RELEASE) PO PRN ×3 (10:07→20:34)
[2023-06-23] MEDS: PROMETHAZINE HCL 6.25 MG in SODIUM CHLORIDE 0.9% 50 ML IV PRN (11:41)
--- NOTE | 2023-06-23 11:54 | Communication Note ---
Date of Service: June 23, 2023 Pt seen in the AM. Stated that the oxycodone was not working for him and he wanted Dilaudid. Dilaudid previously ordered by General Surgery and on pt's med list, pt received doses overnight but noted that he was not being given the Dilaudid. Also notified by nursing that pt was refusing fluids with D5 and K+, glucose in the 50s. Received an amp of D5 and was later agreeable to the IV fluids. Case discussed with General surgery, pt stable and repeat CT still with questionable intussusception. Nonemergent laparoscopy possibly next week unless emergent surgery needed.
[2023-06-23 12:53] LABS: Partial Thromboplastin Ratio 1.1; Partial Thromboplastin Time 31.2 Seconds (21.0-31.0)
[2023-06-23] MEDS: HYDROmorphone INJ 0.5 MG/0.5 ML SYR IV PRN ×2 (14:59→20:58)
[2023-06-23] MEDS ORDERED: HEPARIN IV BOLUS 3,000 UNITS in SYRINGE 0 ML IV STA (15:11)
--- NOTE | 2023-06-23 15:25 | Electrocardiogram Report ---
Test Reason : Blood Pressure : / mmHG Vent. Rate : 091 BPM Atrial Rate : 091 BPM P-R Int : 148 ms QRS Dur : 084 ms QT Int : 346 ms P-R-T Axes : 077 074 071 degrees QTc Int : 425 ms Normal sinus rhythm Normal ECG When compared with ECG of 09-MAY-2023 22:14, No significant change was found Confirmed by Mundo Ordonez ([id number]) on 06/23/2023 3:24:59 PM Referred By: REFERRED SELF Confirmed By:Mundo Ordonez
[2023-06-23] MEDS: ONDANSETRON INJ 2 MG/ML 2 ML VIAL IV PRN ×2 (15:40→20:59)
--- NOTE | 2023-06-23 16:55 | CT Scan Report ---
CT abd pelvis oral con only CLINICAL HISTORY: Intussusception PLEASE USE Gastrografin TECHNIQUE: Helical axial images of the abdomen and pelvis were obtained. Automated dose lowering tech niques and/or adjustment according to patient size were utilized for this exam. This exam was perfor med without intravenous contrast. CT DOSE: 967.55 mGy.cm COMPARISON: Comparison is made to CT abdomen pelvis 06/23/2023 FINDINGS: Lower chest: No acute abnormality. Liver: Hepatic steatosis is noted. Gallbladder and biliary tree: Patient is status post cholecystectomy. No intra- or extrahepatic bilia ry ductal dilation. Pancreas: Calcifications are seen in the pancreas possibly secondary to chronic pancreatitis. Spleen: Unremarkable. Adrenals: Unremarkable. Kidneys and ureters: Perinephric stranding is noted bilaterally. Bladder: Unremarkable. Reproductive organs: Prostatic calcifications are seen which may represent prior hemorrhage or granul omatous disease. Bowel: No evidence of obstruction or intussusception is seen. Lymph nodes Retroperitoneal: Unremarkable. Pelvic: Unremarkable. Mesenteric: Unremarkable. Peritoneum: Normal. Vessels: Unremarkable. Abdominal wall: Incidental note is made of a small anterior wall lipoma. Bones: Mild degenerative changes are seen. Posterior fixation hardware spans L4-S1. IMPRESSION: No acute abnormalities and in particular no evidence of obstruction or intussusception. Previously no edmund left upper quadrant intussusception has resolved. ACT 112: Negative or not required by law. Electronically signed by: Kg Moreira M.D. 06/23/2023 4:53 PM
[2023-06-23] MEDS: LANTUS PER UNIT CHARGE SQ SCH (20:37)
[2023-06-23] MEDS ORDERED: SODIUM CHLORIDE 0.45 % 1,000 ML IV ONE (22:18)
[2023-06-23 22:22] LABS: Partial Thromboplastin Ratio 1.6
[2023-06-23 22:26] LABS: Partial Thromboplastin Time 44.7 Seconds (21.0-31.0)
[2023-06-24] MEDS: oxyCODONE HCL IR 5 MG TAB (IMMEDIATE RELEASE) PO PRN ×3 (00:41→18:30)
[2023-06-24 02:31] LABS: Basophils # (auto) 0.04 K/uL (0.00-0.20); Basophils % (auto) 0.9 %; Eosinophils # (auto) 0.45 K/uL (0.00-0.50); Eosinophils % (auto) 10.1 %; Hematocrit (blood only) 40.2 % (42.0-52.0); Hemoglobin 14.2 g/dl (14.0-18.0); Immature Granulocytes # (auto) 0.01 K/uL (0.01-0.20); Immature Granulocytes % (auto) 0.2 %; Lymphocytes # (auto) 1.54 K/uL (1.20-3.40); Lymphocytes % (auto) 34.6 %; Mean Corpuscular Hemoglobin 32.4 pg (25.0-34.0); Mean Corpuscular Hgb Conc 35.3 g/dL (32.0-36.0); Mean Corpuscular Volume 91.8 fL (80.0-100.0); Mean Platelet Volume 9.5 fL (9.4-12.4); Monocytes # (auto) 0.31 K/uL (0.11-0.59); Neutrophils % (auto) 47.2 %; Platelet Count 130 K/uL (130-400); RDW Coefficient of Variation 11.4 % (11.5-14.5); RDW Standard Deviation 38.6 fL (36.4-46.3); Red Blood Count 4.38 M/uL (4.70-6.10); White Blood Count 4.45 K/ul (4.8-10.8)
[2023-06-24 02:46] LABS: Albumin Level 3.7 gm/dl (3.4-5.0); Bilirubin,Total 1.1 mg/dl (0.2-1.0); Calcium 9.8 mg/dl (8.6-10.3); Magnesium 1.7 mg/dl (1.7-2.4); Potassium 3.6 mmol/L (3.5-5.1)
[2023-06-24 02:59] LABS: Partial Thromboplastin Ratio 1.6
[2023-06-24] MEDS: HYDROmorphone INJ 0.5 MG/0.5 ML SYR IV PRN ×4 (03:01→21:18)
[2023-06-24 03:03] LABS: Albumin Globulin Ratio 1.5 (0.9-2); BUN Creatinine Ratio 4.1 (10-20); Creatinine Clr Calc Pharmacy 134.4 ml/min; Est GFR (African American) 126.2 ml/min; Est GFR (Non-African American) 108.9 ml/min; Globulin 2.5 gm/dl (2.5-4.0); Phosphorus 2.7 mg/dl (2.5-4.9); Total Protein 6.2 gm/dl (6.0-8.3)
[2023-06-24 03:06] LABS: Partial Thromboplastin Time 45.8 Seconds (21.0-31.0)
[2023-06-24] MEDS: ONDANSETRON INJ 2 MG/ML 2 ML VIAL IV PRN ×2 (03:11→21:19)
[2023-06-24] MEDS: NSS + 20MEQ KCL 20 MEQ/1,000 ML BAG IV SCH (03:36)
[2023-06-24] MEDS: INSULIN ASPART PER UNIT CHARGE SC SCH ×4 (05:47→23:32)
[2023-06-24] MEDS: HEPARIN SODIUM/DEXTROSE 25,000 UNITS/500 ML BAG IV SCH (07:10)
[2023-06-24] MEDS: PANTOprazole 40 MG TAB PO SCH (08:04)
[2023-06-24] MEDS: FOLIC ACID 1 MG TAB PO SCH (08:07)
[2023-06-24] MEDS: THIAMINE HCL 100 MG TAB PO SCH (08:07)
[2023-06-24] MEDS: MULTIVITAMIN TAB PO SCH (08:07)
[2023-06-24] MEDS: PROMETHAZINE HCL 6.25 MG in SODIUM CHLORIDE 0.9% 50 ML IV PRN (09:55)
--- NOTE | 2023-06-24 14:33 | Surgery Progress Note ---
Date of Service June 24, 2023 Assessment & Plan (1) Abdominal pain: Plan: F/U abdominal pain, possible intussusception. pt is doing better, less abdominal pain, passed Flatus, no nausea, no vomiting, plan: clear diet, OOB possible d/c home tomorrow if pt tolerated diet, pt agreed with the plan, I answered all questions. Admission and Anticipated Discharge Date Admission Date: June 23, 2023 Subjective F/U possible intussusception, pt is doing better, less abdominal pain, no nausea, no vomiting, no fever, passed flatus, repeat CT scan- no intussusception Physical Exam Constitutional: WD/WN, vitals as above Eyes: PERRL, conjunctivae normal, anicteric sclerae Neck: trachea midline, no thyromegaly Respiratory: normal respiratory effort, lungs clear to auscultation Cardiovascular: RRR, no murmur, no edema Gastrointestinal (Abdomen): soft, mild tenderness at upper abdomen, no rebound pain, no distend, BS +. Musculoskeletal: no cyanosis or clubbing, extremities motor strength 5/5 Neurologic: patellar DTR's 2+ bilat, sensation intact Psychiatric: A+Ox3, euthymic affect Results & Data Vital Signs (Past 12 Hours) Vital Signs Temp Pulse Pulse Resp BP Pulse Ox Pulse Ox 06/24/23 11:20 36.4 C L 73 16 100/65 98 06/24/23 08:14 36.7 C 75 14 115/75 99 06/24/23 08:10 06/24/23 07:23 73 06/24/23 07:00 98 06/24/23 03:36 36.9 C 69 18 114/71 98 O2 Del Method O2 Del Method 06/24/23 11:20 Room Air 06/24/23 08:14 Room Air 06/24/23 08:10 Room Air 06/24/23 07:23 06/24/23 07:00 Room Air 06/24/23 03:36 Room Air Laboratory Results Lab Results 06/22/23 06/23/23 06/23/23 Range/Units 22:05 01:32 02:30 WBC 6.20 (4.8-10.8) K/ul RBC 4.91 (4.70-6.10) M/uL Hgb 16.2 (14.0-18.0) g/dl Hct 44.8 (42.0-52.0) % MCV 91.2 (80.0-100.0) fL MCH 33.0 (25.0-34.0) pg MCHC 36.2 H (32.0-36.0) g/dL RDW Std Deviation 38.4 (36.4-46.3) fL RDW Coeff of Gucci 11.3 L (11.5-14.5) % Plt Count 159 (130-400) K/uL MPV 9.7 (9.4-12.4) fL Immature Gran % (Auto) 0.2 % Neut % (Auto) 60.0 % Lymph % (Auto) 26.3 % Monroe % (Auto) 7.9 % Eos % (Auto) 4.8 % Baso % (Auto) 0.8 % Neut # (Auto) 3.72 (1.40-6.50) K/uL Lymph # (Auto) 1.63 (1.20-3.40) K/uL Monroe # (Auto) 0.49 (0.11-0.59) K/uL Eos # (Auto) 0.30 (0.00-0.50) K/uL Baso # (Auto) 0.05 (0.00-0.20) K/uL Immature Gran # (Auto) 0.01 (0.01-0.20) K/uL PT 10.5 (9.0-12.0) Seconds INR 1.0 (0.9-1.1) APTT (21.0-31.0) Seconds PTT Ratio Sodium 126 L (136-145) mmol/L Potassium 4.2 (3.5-5.1) mmol/L Chloride 91 L (98-107) mmol/L Carbon Dioxide 23 (21-32) mmol/L Anion Gap 12 H (3-11) BUN 6 (6-23) mg/dl Creatinine 0.96 (0.6-1.4) mg/dl Est Cr Clr Drug Dosing 102.2 ml/min Est GFR ( Amer) 107.1 ml/min Est GFR (Non-Af Amer) 92.4 ml/min BUN/Creatinine Ratio 6.3 L (10-20) Glucose 324 H* (70-99(Fasting)) mg/dl POC Glucose 186 H (70-99) mg/dl Osmolality 343 H (280-300) mOsm/kg Lactate (0.4-2.0) mmol/L Calcium 10.2 (8.6-10.3) mg/dl Ionized Calcium (1.12-1.32) mmol/L Phosphorus (2.5-4.9) mg/dl Magnesium 1.8 (1.7-2.4) mg/dl Total Bilirubin 1.0 (0.2-1.0) mg/dl AST 48 H (13-39) U/L ALT 49 (7-52) U/L Alkaline Phosphatase 83 (34-104) U/L Total Protein 7.8 (6.0-8.3) gm/dl Albumin 4.4 (3.4-5.0) gm/dl Globulin 3.4 (2.5-4.0) gm/dl Albumin/Globulin Ratio 1.3 (0.9-2) Amylase 24 L (25-115) U/L Lipase 11 (11-82) U/L TSH Cancelled Urine Color Yellow Urine Appearance Clear (Clear) Urine pH 5.0 (4.5-7.5) Ur Specific Hector 1.013 (1.000-1.030) Urine Protein Negative (Negative) Urine Glucose (UA) 2+ H (Negative) Urine Ketones Negative (Negative) Urine Blood Negative (Negative) Urine Nitrite Negative (Negative) Urine Bilirubin Negative (Negative) Urine Urobilinogen Negative (Negative) Ur Leukocyte Esterase Negative (Negative) Urine Osmolality (500-800) mOsm/kg Ur Random Sodium mmol/L Ethyl Alcohol mg/dL 256.1 H (<10.0) mg/dl 06/23/23 06/23/23 06/23/23 Range/Units 06:03 06:12 07:44 WBC 5.74 (4.8-10.8) K/ul RBC 4.39 L (4.70-6.10) M/uL Hgb 14.2 (14.0-18.0) g/dl Hct 40.1 L (42.0-52.0) % MCV 91.3 (80.0-100.0) fL MCH 32.3 (25.0-34.0) pg MCHC 35.4 (32.0-36.0) g/dL RDW Std Deviation 37.9 (36.4-46.3) fL RDW Coeff of Gucci 11.2 L (11.5-14.5) % Plt Count 192 (130-400) K/uL MPV 9.6 (9.4-12.4) fL Immature Gran % (Auto) 0.2 % Neut % (Auto) 52.9 % Lymph % (Auto) 32.1 % Monroe % (Auto) 11.5 % Eos % (Auto) 2.6 % Baso % (Auto) 0.7 % Neut # (Auto) 3.04 (1.40-6.50) K/uL Lymph # (Auto) 1.84 (1.20-3.40) K/uL Monroe # (Auto) 0.66 H (0.11-0.59) K/uL Eos # (Auto) 0.15 (0.00-0.50) K/uL Baso # (Auto) 0.04 (0.00-0.20) K/uL Immature Gran # (Auto) 0.01 (0.01-0.20) K/uL PT (9.0-12.0) Seconds INR (0.9-1.1) APTT 25.4 (21.0-31.0) Seconds PTT Ratio 0.9 Sodium 141 D (136-145) mmol/L Potassium 3.2 L D (3.5-5.1) mmol/L Chloride 107 (98-107) mmol/L Carbon Dioxide 23 (21-32) mmol/L Anion Gap 11 (3-11) BUN 4 L (6-23) mg/dl Creatinine 0.82 (0.6-1.4) mg/dl Est Cr Clr Drug Dosing 119.6 ml/min Est GFR ( Amer) 120.3 ml/min Est GFR (Non-Af Amer) 103.8 ml/min BUN/Creatinine Ratio 4.9 L (10-20) Glucose 55 L (70-99(Fasting)) mg/dl POC Glucose 57 L* (70-99) mg/dl Osmolality (280-300) mOsm/kg Lactate 4.7 H* (0.4-2.0) mmol/L Calcium 9.3 (8.6-10.3) mg/dl Ionized Calcium (1.12-1.32) mmol/L Phosphorus (2.5-4.9) mg/dl Magnesium (1.7-2.4) mg/dl Total Bilirubin (0.2-1.0) mg/dl AST (13-39) U/L ALT (7-52) U/L Alkaline Phosphatase (34-104) U/L Total Protein (6.0-8.3) gm/dl Albumin (3.4-5.0) gm/dl Globulin (2.5-4.0) gm/dl Albumin/Globulin Ratio (0.9-2) Amylase (25-115) U/L Lipase (11-82) U/L TSH 2.828 Urine Color Urine Appearance (Clear) Urine pH (4.5-7.5) Ur Specific Hector (1.000-1.030) Urine Protein (Negative) Urine Glucose (UA) (Negative) Urine Ketones (Negative) Urine Blood (Negative) Urine Nitrite (Negative) Urine Bilirubin (Negative) Urine Urobilinogen (Negative) Ur Leukocyte Esterase (Negative) Urine Osmolality 259 L (500-800) mOsm/kg Ur Random Sodium 55 mmol/L Ethyl Alcohol mg/dL (<10.0) mg/dl 06/23/23 06/23/23 06/23/23 Range/Units 08:15 08:56 11:26 WBC (4.8-10.8) K/ul RBC (4.70-6.10) M/uL Hgb (14.0-18.0) g/dl Hct (42.0-52.0) % MCV (80.0-100.0) fL MCH (25.0-34.0) pg MCHC (32.0-36.0) g/dL RDW Std Deviation (36.4-46.3) fL RDW Coeff of Gucci (11.5-14.5) % Plt Count (130-400) K/uL MPV (9.4-12.4) fL Immature Gran % (Auto) % Neut % (Auto) % Lymph % (Auto) % Monroe % (Auto) % Eos % (Auto) % Baso % (Auto) % Neut # (Auto) (1.40-6.50) K/uL Lymph # (Auto) (1.20-3.40) K/uL Monroe # (Auto) (0.11-0.59) K/uL Eos # (Auto) (0.00-0.50) K/uL Baso # (Auto) (0.00-0.20) K/uL Immature Gran # (Auto) (0.01-0.20) K/uL PT (9.0-12.0) Seconds INR (0.9-1.1) APTT 31.2 H (21.0-31.0) Seconds PTT Ratio 1.1 Sodium (136-145) mmol/L Potassium (3.5-5.1) mmol/L Chloride (98-107) mmol/L Carbon Dioxide (21-32) mmol/L Anion Gap (3-11) BUN (6-23) mg/dl Creatinine (0.6-1.4) mg/dl Est Cr Clr Drug Dosing ml/min Est GFR ( Amer) ml/min Est GFR (Non-Af Amer) ml/min BUN/Creatinine Ratio (10-20) Glucose (70-99(Fasting)) mg/dl POC Glucose 107 H 105 H (70-99) mg/dl Osmolality (280-300) mOsm/kg Lactate (0.4-2.0) mmol/L Calcium (8.6-10.3) mg/dl Ionized Calcium (1.12-1.32) mmol/L Phosphorus (2.5-4.9) mg/dl Magnesium (1.7-2.4) mg/dl Total Bilirubin (0.2-1.0) mg/dl AST (13-39) U/L ALT (7-52) U/L Alkaline Phosphatase (34-104) U/L Total Protein (6.0-8.3) gm/dl Albumin (3.4-5.0) gm/dl Globulin (2.5-4.0) gm/dl Albumin/Globulin Ratio (0.9-2) Amylase (25-115) U/L Lipase (11-82) U/L TSH Urine Color Urine Appearance (Clear) Urine pH (4.5-7.5) Ur Specific Hector (1.000-1.030) Urine Protein (Negative) Urine Glucose (UA) (Negative) Urine Ketones (Negative) Urine Blood (Negative) Urine Nitrite (Negative) Urine Bilirubin (Negative) Urine Urobilinogen (Negative) Ur Leukocyte Esterase (Negative) Urine Osmolality (500-800) mOsm/kg Ur Random Sodium mmol/L Ethyl Alcohol mg/dL (<10.0) mg/dl 06/23/23 06/23/23 06/23/23 Range/Units 11:29 12:52 17:21 WBC (4.8-10.8) K/ul RBC (4.70-6.10) M/uL Hgb (14.0-18.0) g/dl Hct (42.0-52.0) % MCV (80.0-100.0) fL MCH (25.0-34.0) pg MCHC (32.0-36.0) g/dL RDW Std Deviation (36.4-46.3) fL RDW Coeff of Gucci (11.5-14.5) % Plt Count (130-400) K/uL MPV (9.4-12.4) fL Immature Gran % (Auto) % Neut % (Auto) % Lymph % (Auto) % Monroe % (Auto) % Eos % (Auto) % Baso % (Auto) % Neut # (Auto) (1.40-6.50) K/uL Lymph # (Auto) (1.20-3.40) K/uL Monroe # (Auto) (0.11-0.59) K/uL Eos # (Auto) (0.00-0.50) K/uL Baso # (Auto) (0.00-0.20) K/uL Immature Gran # (Auto) (0.01-0.20) K/uL PT (9.0-12.0) Seconds INR (0.9-1.1) APTT (21.0-31.0) Seconds PTT Ratio Sodium (136-145) mmol/L Potassium (3.5-5.1) mmol/L Chloride (98-107) mmol/L Carbon Dioxide (21-32) mmol/L Anion Gap (3-11) BUN (6-23) mg/dl Creatinine (0.6-1.4) mg/dl Est Cr Clr Drug Dosing ml/min Est GFR ( Amer) ml/min Est GFR (Non-Af Amer) ml/min BUN/Creatinine Ratio (10-20) Glucose (70-99(Fasting)) mg/dl POC Glucose 138 H 194 H (70-99) mg/dl Osmolality (280-300) mOsm/kg Lactate 2.2 H* (0.4-2.0) mmol/L Calcium (8.6-10.3) mg/dl Ionized Calcium (1.12-1.32) mmol/L Phosphorus (2.5-4.9) mg/dl Magnesium (1.7-2.4) mg/dl Total Bilirubin (0.2-1.0) mg/dl AST (13-39) U/L ALT (7-52) U/L Alkaline Phosphatase (34-104) U/L Total Protein (6.0-8.3) gm/dl Albumin (3.4-5.0) gm/dl Globulin (2.5-4.0) gm/dl Albumin/Globulin Ratio (0.9-2) Amylase (25-115) U/L Lipase (11-82) U/L TSH Urine Color Urine Appearance (Clear) Urine pH (4.5-7.5) Ur Specific Hector (1.000-1.030) Urine Protein (Negative) Urine Glucose (UA) (Negative) Urine Ketones (Negative) Urine Blood (Negative) Urine Nitrite (Negative) Urine Bilirubin (Negative) Urine Urobilinogen (Negative) Ur Leukocyte Esterase (Negative) Urine Osmolality (500-800) mOsm/kg Ur Random Sodium mmol/L Ethyl Alcohol mg/dL (<10.0) mg/dl 06/23/23 06/23/23 06/24/23 Range/Units 20:17 21:33 02:11 WBC 4.45 L (4.8-10.8) K/ul RBC 4.38 L (4.70-6.10) M/uL Hgb 14.2 (14.0-18.0) g/dl Hct 40.2 L (42.0-52.0) % MCV 91.8 (80.0-100.0) fL MCH 32.4 (25.0-34.0) pg MCHC 35.3 (32.0-36.0) g/dL RDW Std Deviation 38.6 (36.4-46.3) fL RDW Coeff of Gucci 11.4 L (11.5-14.5) % Plt Count 130 (130-400) K/uL MPV 9.5 (9.4-12.4) fL Immature Gran % (Auto) 0.2 % Neut % (Auto) 47.2 % Lymph % (Auto) 34.6 % Monroe % (Auto) 7.0 % Eos % (Auto) 10.1 % Baso % (Auto) 0.9 % Neut # (Auto) 2.10 (1.40-6.50) K/uL Lymph # (Auto) 1.54 (1.20-3.40) K/uL Monroe # (Auto) 0.31 (0.11-0.59) K/uL Eos # (Auto) 0.45 (0.00-0.50) K/uL Baso # (Auto) 0.04 (0.00-0.20) K/uL Immature Gran # (Auto) 0.01 (0.01-0.20) K/uL PT (9.0-12.0) Seconds INR (0.9-1.1) APTT 44.7 H* 45.8 H* (21.0-31.0) Seconds PTT Ratio 1.6 1.6 Sodium 135 L 135 L (136-145) mmol/L Potassium (3.5-5.1) mmol/L Chloride (98-107) mmol/L Carbon Dioxide (21-32) mmol/L Anion Gap (3-11) BUN (6-23) mg/dl Creatinine (0.6-1.4) mg/dl Est Cr Clr Drug Dosing ml/min Est GFR ( Amer) ml/min Est GFR (Non-Af Amer) ml/min BUN/Creatinine Ratio (10-20) Glucose (70-99(Fasting)) mg/dl POC Glucose 188 H (70-99) mg/dl Osmolality (280-300) mOsm/kg Lactate 1.2 (0.4-2.0) mmol/L Calcium (8.6-10.3) mg/dl Ionized Calcium (1.12-1.32) mmol/L Phosphorus (2.5-4.9) mg/dl Magnesium (1.7-2.4) mg/dl Total Bilirubin (0.2-1.0) mg/dl AST (13-39) U/L ALT (7-52) U/L Alkaline Phosphatase (34-104) U/L Total Protein (6.0-8.3) gm/dl Albumin (3.4-5.0) gm/dl Globulin (2.5-4.0) gm/dl Albumin/Globulin Ratio (0.9-2) Amylase (25-115) U/L Lipase (11-82) U/L TSH Urine Color Urine Appearance (Clear) Urine pH (4.5-7.5) Ur Specific Hector (1.000-1.030) Urine Protein (Negative) Urine Glucose (UA) (Negative) Urine Ketones (Negative) Urine Blood (Negative) Urine Nitrite (Negative) Urine Bilirubin (Negative) Urine Urobilinogen (Negative) Ur Leukocyte Esterase (Negative) Urine Osmolality (500-800) mOsm/kg Ur Random Sodium mmol/L Ethyl Alcohol mg/dL (<10.0) mg/dl 06/24/23 06/24/23 06/24/23 Range/Units 02:11 05:46 08:26 WBC (4.8-10.8) K/ul RBC (4.70-6.10) M/uL Hgb (14.0-18.0) g/dl Hct (42.0-52.0) % MCV (80.0-100.0) fL MCH (25.0-34.0) pg MCHC (32.0-36.0) g/dL RDW Std Deviation (36.4-46.3) fL RDW Coeff of Gucci (11.5-14.5) % Plt Count (130-400) K/uL MPV (9.4-12.4) fL Immature Gran % (Auto) % Neut % (Auto) % Lymph % (Auto) % Monroe % (Auto) % Eos % (Auto) % Baso % (Auto) % Neut # (Auto) (1.40-6.50) K/uL Lymph # (Auto) (1.20-3.40) K/uL Monroe # (Auto) (0.11-0.59) K/uL Eos # (Auto) (0.00-0.50) K/uL Baso # (Auto) (0.00-0.20) K/uL Immature Gran # (Auto) (0.01-0.20) K/uL PT (9.0-12.0) Seconds INR (0.9-1.1) APTT (21.0-31.0) Seconds PTT Ratio Sodium Cancelled (136-145) mmol/L Potassium 3.6 (3.5-5.1) mmol/L Chloride 102 (98-107) mmol/L Carbon Dioxide 25 (21-32) mmol/L Anion Gap 8 (3-11) BUN 3 L (6-23) mg/dl Creatinine 0.73 (0.6-1.4) mg/dl Est Cr Clr Drug Dosing 134.4 ml/min Est GFR ( Amer) 126.2 ml/min Est GFR (Non-Af Amer) 108.9 ml/min BUN/Creatinine Ratio 4.1 L (10-20) Glucose 224 H (70-99(Fasting)) mg/dl POC Glucose 170 H 190 H (70-99) mg/dl Osmolality (280-300) mOsm/kg Lactate (0.4-2.0) mmol/L Calcium 9.8 (8.6-10.3) mg/dl Ionized Calcium 1.32 (1.12-1.32) mmol/L Phosphorus 2.7 (2.5-4.9) mg/dl Magnesium 1.7 (1.7-2.4) mg/dl Total Bilirubin 1.1 H (0.2-1.0) mg/dl AST 70 H (13-39) U/L ALT 61 H (7-52) U/L Alkaline Phosphatase 106 H (34-104) U/L Total Protein 6.2 D (6.0-8.3) gm/dl Albumin 3.7 (3.4-5.0) gm/dl Globulin 2.5 (2.5-4.0) gm/dl Albumin/Globulin Ratio 1.5 (0.9-2) Amylase (25-115) U/L Lipase 40 (11-82) U/L TSH Urine Color Urine Appearance (Clear) Urine pH (4.5-7.5) Ur Specific Hector (1.000-1.030) Urine Protein (Negative) Urine Glucose (UA) (Negative) Urine Ketones (Negative) Urine Blood (Negative) Urine Nitrite (Negative) Urine Bilirubin (Negative) Urine Urobilinogen (Negative) Ur Leukocyte Esterase (Negative) Urine Osmolality (500-800) mOsm/kg Ur Random Sodium mmol/L Ethyl Alcohol mg/dL (<10.0) mg/dl 06/24/23 Range/Units 12:25 WBC (4.8-10.8) K/ul RBC (4.70-6.10) M/uL Hgb (14.0-18.0) g/dl Hct (42.0-52.0) % MCV (80.0-100.0) fL MCH (25.0-34.0) pg MCHC (32.0-36.0) g/dL RDW Std Deviation (36.4-46.3) fL RDW Coeff of Gucci (11.5-14.5) % Plt Count (130-400) K/uL MPV (9.4-12.4) fL Immature Gran % (Auto) % Neut % (Auto) % Lymph % (Auto) % Monroe % (Auto) % Eos % (Auto) % Baso % (Auto) % Neut # (Auto) (1.40-6.50) K/uL Lymph # (Auto) (1.20-3.40) K/uL Monroe # (Auto) (0.11-0.59) K/uL Eos # (Auto) (0.00-0.50) K/uL Baso # (Auto) (0.00-0.20) K/uL Immature Gran # (Auto) (0.01-0.20) K/uL PT (9.0-12.0) Seconds INR (0.9-1.1) APTT (21.0-31.0) Seconds PTT Ratio Sodium (136-145) mmol/L Potassium (3.5-5.1) mmol/L Chloride (98-107) mmol/L Carbon Dioxide (21-32) mmol/L Anion Gap (3-11) BUN (6-23) mg/dl Creatinine (0.6-1.4) mg/dl Est Cr Clr Drug Dosing ml/min Est GFR ( Amer) ml/min Est GFR (Non-Af Amer) ml/min BUN/Creatinine Ratio (10-20) Glucose (70-99(Fasting)) mg/dl POC Glucose 164 H (70-99) mg/dl Osmolality (280-300) mOsm/kg Lactate (0.4-2.0) mmol/L Calcium (8.6-10.3) mg/dl Ionized Calcium (1.12-1.32) mmol/L Phosphorus (2.5-4.9) mg/dl Magnesium (1.7-2.4) mg/dl Total Bilirubin (0.2-1.0) mg/dl AST (13-39) U/L ALT (7-52) U/L Alkaline Phosphatase (34-104) U/L Total Protein (6.0-8.3) gm/dl Albumin (3.4-5.0) gm/dl Globulin (2.5-4.0) gm/dl Albumin/Globulin Ratio (0.9-2) Amylase (25-115) U/L Lipase (11-82) U/L TSH Urine Color Urine Appearance (Clear) Urine pH (4.5-7.5) Ur Specific Hector (1.000-1.030) Urine Protein (Negative) Urine Glucose (UA) (Negative) Urine Ketones (Negative) Urine Blood (Negative) Urine Nitrite (Negative) Urine Bilirubin (Negative) Urine Urobilinogen (Negative) Ur Leukocyte Esterase (Negative) Urine Osmolality (500-800) mOsm/kg Ur Random Sodium mmol/L Ethyl Alcohol mg/dL (<10.0) mg/dl Diagnostic Findings CT abd pelvis oral con only CLINICAL HISTORY: Intussusception PLEASE USE [employer] TECHNIQUE: Helical axial images of the abdomen and pelvis were obtained. Automated dose lowering techniques and/or adjustment according to patient size were utilized for this exam. This exam was performed without intravenous contrast. CT DOSE: 967.55 mGy.cm COMPARISON: Comparison is made to CT abdomen pelvis 06/23/2023 FINDINGS: Lower chest: No acute abnormality. Liver: Hepatic steatosis is noted. Gallbladder and biliary tree: Patient is status post cholecystectomy. No intra- or extrahepatic biliary ductal dilation. Pancreas: Calcifications are seen in the pancreas possibly secondary to chronic pancreatitis. Spleen: Unremarkable. Adrenals: Unremarkable. Kidneys and ureters: Perinephric stranding is noted bilaterally. Bladder: Unremarkable. Reproductive organs: Prostatic calcifications are seen which may represent prior hemorrhage or granulomatous disease. Bowel: No evidence of obstruction or intussusception is seen. Lymph nodes Retroperitoneal: Unremarkable. Pelvic: Unremarkable. Mesenteric: Unremarkable. Peritoneum: Normal. Vessels: Unremarkable. Abdominal wall: Incidental note is made of a small anterior wall lipoma. Bones: Mild degenerative changes are seen. Posterior fixation hardware spans L4- S1. IMPRESSION: No acute abnormalities and in particular no evidence of obstruction or intussusception. Previously noted left upper quadrant intussusception has resolved. ACT 112: Negative or not required by law. Electronically signed by: Kg Moreira M.D. 06/23/2023 4:53 PM
--- NOTE | 2023-06-24 14:44 | Hospitalist Progress Note ---
Date of Service June 24, 2023 Assessment & Plan (1) Hyponatremia: Plan: Pt is a 47yoM with PMHx significant for alcohol abuse, chronic pancreatitis, GERD/Renae's esophagus, ADD/mood disorder, DM2 insulin requiring, hx PE/recurrent DVT on Eliquis, history of chronic pain, hx narcotic abuse as per records/terminated medication agreement admitted with abdominal pain and concern for intussusception. Abdominal pain Intussusception GI symptoms from enteritis, possible intussusception on imaging Surgery consult Re: Abnormal CT, possible intussusception, appreciate recs Bowel rest 06/24- repeat CT abd/pelvis by Surgery with no intussusception, pt would like to try eating noting improved abd pain Continue to monitor Hyponatremia In setting of alcohol abuse, beer potomania 126 on admission Currently 135 after hydration, continue to monitor hx chronic alcoholic pancreatitis Stable history of chronic pain hx narcotic abuse, as per records/terminated medication agreement Analgesia, judicious narcotic use given history drug abuse as per records Hx of alcohol abuse DT precautions, AWSS protocol history GERD/Renae's esophagus on PPI DM2 insulin requiring suboptimal control as of recent hemoglobin A1c of 8.2 last April 2023 basal bolus insulin, ISS BG goal 110-140, carb count coverage history of PE/DVT on once daily Eliquis (patient noncompliant with recommended twice daily dosing) Heparin drip d/c, Eliquis resumed now tolerating PO ADD/mood disorder Stable DVT prophylaxis: On Eliquis, previously on heparin drip Diet: currently on clear liquids CODE STATUS: Full code Dispo: Home once tolerating food well Admission and Anticipated Discharge Date Admission Date: June 23, 2023 Subjective Pt seen in the AM. Notes that his pain is getting better, would like to try food. Otherwise denied acute concerns. Review of Systems Review of Systems: All systems reviewed & are unremarkable except as noted in Subjective Physical Exam Physical Exam: General: Alert, oriented. No acute distress Skin: No noted rashes or bruises Psych: Appropriate mood and affect Neuro: No gross deficits HEENT: NC/AT Chest: Nontender to palpation. CV: RRR, Normal s1, s2. No murmurs appreciated Resp: Breath sounds clear bilaterally, no increased effort of breathing. Abdomen: Soft, tender in lower quadrants bilaterally Extremities: No edema in lower extremities bilaterally. Results & Data Results & Data Vital Signs (Past 12 Hours) Vital Signs Temp Pulse Pulse Resp BP Pulse Ox Pulse Ox 06/24/23 11:20 36.4 C L 73 16 100/65 98 06/24/23 08:14 36.7 C 75 14 115/75 99 06/24/23 08:10 06/24/23 07:23 73 06/24/23 07:00 98 06/24/23 03:36 36.9 C 69 18 114/71 98 O2 Del Method O2 Del Method 06/24/23 11:20 Room Air 06/24/23 08:14 Room Air 06/24/23 08:10 Room Air 06/24/23 07:23 06/24/23 07:00 Room Air 06/24/23 03:36 Room Air
[2023-06-24] MEDS: APIXABAN 5 MG TABLET PO SCH (16:23)
--- OUTSIDE RECORDS SUMMARY | 2023-06-24 17:50 | External Medical Summary | Summary of Care ---
Author Name Unknown Organization [facility] Address [address] [facility] [place] [address] Phone [phone] Care Team Providers Care Airplane Rigger Name Role Phone GregDhiraj lynn Primary Care Provider [phone] Encounter Details Date Type Department Care Team Description 05/23/2023 Telephone OR [facility], Operating Room [facility] [address] [place] [id number] Homero Mullen MD [address] [place] [id number] Allergies No known active allergiesdocumented as of this encounter (statuses as of 05/25/2023) Medications Medication Sig Dispensed Refills Start Date End Date Status Blood Glucose Monitoring Suppl (Clearbridge Accelerator ULTRA SYSTEM) W/DEVICE KIT Use as directed 2 times a day. 1 Kit 0 06/28/2016 Active glipiZIDE ER 5 MG Oral Tablet Extended Release 24 Hour (glipiZIDE XL)Indications:Type 2 diabetes, HbA1C goal < 8% ([facility]) Take 1 Tablet by mouth in the morning. 30 minutes before a meal.. 30 Tablet 5 09/21/2022 Active hydrOXYzine Pamoate 25 MG Oral Capsule (Vistaril)Indicatio ns:DEVANTE (generalized anxiety disorder) Take 1 Capsule by mouth 2 times a day as needed for Anxiety. 20 Capsule 1 09/21/2022 Active Apixaban 5 MG Oral Tablet (Eliquis) Take 1 Tablet by mouth in the morning and 1 Tablet before bedtime. 60 Tablet 5 10/07/2022 Active Creon 13013-29280 UNIT Oral Capsule Delayed Release Particles (Pancrelipase (Zqd-Djsb-Zcbp)) take 1 cap orally three times a day administer with meals and/or snacks 90 Capsule 0 12/21/2022 Active Insulin Glargine Solostar 100 UNIT/ML Subcutaneous Solution Pen-injector (Lantus SoloStar)Indication s:Type 2 diabetes, HbA1C goal < 8% (HCC) inject subcutaneously 15 units at bedtime. 15 mL 12/27/2022 Active OneTouch Verio w/Device KitIndications:Type 2 diabetes, HbA1C goal < 8% (HCC) Use to check blood sugar four times a day 1 Kit 0 12/27/2022 Active Glucose Blood In Vitro StripIndications:Ty pe 2 diabetes, HbA1C goal < 8% (HCC) USE UP TO 4 TIMES DAILY 100 Strip 11 12/27/2022 Active Alcohol Wipes 70 % PadIndications:Type 2 diabetes, HbA1C goal < 8% (HCC) USe to help check blood sugar 100 Each 12/27/2022 Active Albuterol Sulfate HFA 108 (90 Base) MCG/ACT Inhalation Aerosol Solution Inhale 2 Puffs by mouth every 6 hours as needed for Shortness of Breath. 18 g 12/27/2022 Active Amitriptyline HCl 50 MG Oral Tablet (Elavil)Indications :Recurrent major depressive disorder, in partial remission (HCC) Take 1 Tablet by mouth at bedtime. 30 Tablet 12/27/2022 Active Pantoprazole Sodium 40 MG Oral Tablet Delayed Release (Protonix)Indicatio ns:Gastroesophageal reflux disease without esophagitis,Renae 's esophagus without dysplasia Take 1 Tablet by mouth in the morning. 90 Tablet 1 12/27/2022 Active Folic Acid 1 MG Oral Tablet take one tablet (1 mg )orally daily in the morning 30 Tablet 0 01/05/2023 Active Gabapentin 600 MG Oral Tablet (Neurontin) take 1 tablet (600 mg) orally every 12 hours for 2 days 4 Tablet 0 01/05/2023 Active Daily-Chriss Multivitamin Oral TabletIndications:p ack [id number]=[id number] Take one tablet daily in the morning. 100 Tablet 0 01/05/2023 Active oxyCODONE HCl 5 MG Oral Tablet (Oxy IR) take 1 tablet (5 mg) orally every 8 hours As Needed for pain (scale score 7-10) 9 Tablet 0 01/05/2023 Active B-1 100 MG Oral Tablet take 1 tablet by mouth once daily in the morning for 15 days 30 Tablet 0 01/05/2023 Active Pen [place] 32G X 4 MM Use as directed. 100 Each 02/24/2023 Active OneTouch Delica Plus [id number] s:Type 2 diabetes, HbA1C goal < 8% ([facility]) Use as directed 4 times a day as needed for Hyperglycemia (high sugar). 100 Each 02/24/2023 Active traMADol HCl 50 MG Oral Tablet (Ultram) take one tablet orally once daily As Needed for pain 10 Tablet 0 02/24/2023 Active Ondansetron 4 MG Oral Tablet Disintegrating (Zofran) Take 1 tablet (4 mg) by mouth every 6 hours As Needed for nausea and vomiting 10 Tablet 0 03/25/2023 Active documented as of this encounter (statuses as of 05/25/2023) Active Problems Problem Noted Date Alcohol-induced chronic pancreatitis Thrombocytopenia 09/21/2022 Embolism and thrombosis of superficial v eins of left lower extremity 09/21/2022 Alcohol abuse, uncomplicated 09/21/2022 Acute deep vein thrombosis (DVT) of calf muscle vein 08/05/2022 Chest pain 08/05/2022 Panic disorder (episodic paroxysmal anxi ety) 08/20/2019 Renae's esophagus without dysplasia Other chronic pancreatitis 03/20/2018 Type 2 diabetes mellitus with hyperglyce linda 03/20/2018 History of alcohol abuse 10/12/2017 Bipolar depression 01/12/2016 Suicide attempt 06/23/2015 Chronic pain syndrome 06/23/2015 ADHD, hyperactive-impulsive type 015 TERMINATED MEDICATION USAGE AGREEMENT Pulmonary embolism and infarction 2014 Overview: Summer 2014? Type 2 diabetes, HbA1C goal < 8% 014 Overview: ICD-10 update of inactive term Chronic sinusitis 07/21/1999 Tobacco use disorder 03/29/1999 GENERALIZED ANXIETY DIS 03/01/1999 Sciatica 09/16/1998 Esophageal reflux Alcohol abuse, in remission Other allergic rhinitis Overview: ICD-10 update of inactive term Disorder of intervertebral disc Major depressive disorder Overview: 08/18 hosp psych-started on lithium 300mg QAM, 600mg QPM, librium taper. Referred to [facility]. Refused rehab. Grandmother cancer around -was close. Father committed suicide by gunshot 5mo later, patient found body ICD-10 update of inactive term Insomnia documented as of this encounter (statuses as of 05/25/2023) Resolved Problems Problem Noted Date Resolved Date Alcohol abuse with intoxication, unspecified 05/13/2021 Alcohol withdrawal, uncomplicated 03/20/2018 05/13/2021 Alcohol withdrawal 03/09/2017 10/12/2017 MEDICATION USE AGREEMENT 12/11/2014 015 Narcotic addiction 12/11/2014 10/12/2017 MEDICATION USE AGREEMENT 11/19/2014 015 Routine general medical exam ination at a health care facility 09/26/2011 09/27/2013 Overview: Jailed around 08/18 Other specified adjustment reaction 01/05/1999 07/07/2011 Anxiety states 06/23/2015 Overview: ICD-10 update of inactive term Tobacco use disorder 02/15/2012 documented as of this encounter (statuses as of 05/25/2023) Immunizations Name Administration Dates Next Due Pneumococcal Polysaccharide PPV23 (Pneumovax) Seasonal Influenza, Split, IIV3, With Preserve, Inj 06/19/2014 TDAP (age 10 and older)(Boostrix) 06/19/2014 documented as of this encounter Social History Tobacco Use Types Packs/Day Years Used Date Smoking Tobacco: Never Smokeless Tobacco: Current Chew Comments:1 can/day Alcohol Use Standard Drinks/Week Comments Yes 10 (1 standard drink = 0.6 oz pure alcohol) 10 drinks/week no ETOH 04/17. did rehab around 2000. rehab again 2015 ETOH Sex Assigned at Date Recorded Not on file Job Start Date Occupation Industry Not on file Not on file Not on file documented as of this encounter Miscellaneous Notes * Telephone Encounter - LILIANA Agustin - 05/25/2023 12:41 PM EDT Called EC around and informed her that if Raffi did not return call by noon his procedure would be cx'd. Procedure has now been cx'd. * Telephone Encounter - LILIANA Agustin - 05/25/2023 10:42 AM EDT Called EC and LM for pt to return call [facility]. * Telephone Encounter - Aleida Bess RN - 05/25/2023 8:06 AM EDT Attempted to call for pre anesthesia evaluation. Still rapid busy signal * Telephone Encounter - Aleida Bess RN - 05/24/2023 9:37 AM EDT Attempted to call for pre anesthesia evaluation. Rapid busy signal * Telephone Encounter - Aleida Bess RN - 05/23/2023 10:57 AM EDT Attempted to call for pre anesthesia evaluation. Rapid busy signal documented in this encounter Plan of Treatment Upcoming Encounters Date Type Specialty Care Team Description 06/05/2023 Office Visit Urology Kemar Hagan MD [address] [place] [address] 07/04/2023 Office Visit Family Medicine Dhiraj Myers, DO [address] [facility] [place] [address] Health Maintenance Due Date Last Done Comments Hepatitis B (1 of 3 - 3-dose series) 1973 COVID-19 Vaccine (#1) 05/09/1974 HIV Screening 1988 Hepatitis C Screening 11/08/1991 Pneumococcal Vaccine: Pediatrics (0 to 5 Years) and At-Risk Patients (6 to 64 Years) (2 - PCV) 12/16/2014 12/16/2013 Renae's Esophagus Surveilance 10/31/2017 10/31/2014 Cologuard 2018 Colonoscopy 2018 Sigmoidoscopy 2018 Depression Screening 08/20/2020 08/20/2019 Diabetic Foot Exam 10/23/2021 10/23/2020, 0 10/12/2017, 01/12/2016, Additional history exists DIABETES-EYE EXAM 10/13/2022 10/13/2021, , 08/13/2018, Additional history exists Lipid Panel 03/29/2023 03/29/2018, 07/08, 04/20/2015, Additional history exists HbA1c 04/02/2023 10/03/2022, 09/0 01/2022, 01/19/2021, Additional history exists Influenza Vaccine (FLU shot) (#1) 2023 06/19/2014 Albumin/Creatinine Ratio 10/03/2023 023, 04/19/2021, 03/10/2020, Additional history exists GFR 10/03/2023 10/03/2022, 07/09, 04/12/2022, Additional history exists Colorectal Cancer Screening 04/06/2024 Fecal Occult Blood Test 04/06/2024 04/06/2023, 01/21 DTaP,Tdap,and Td Vaccines (2 - Td or Tdap) 06/19/2024 06/19/2014 GARDASIL-HPV IMMUNIZATION SERIES Aged Out No longer eligible based on patient's age to complete this topic MENINGOCOCCAL (MENACTRA/MENVEO) Aged Out No longer eligible based on patient's age to complete this topic documented as of this encounter Medical Devices Not on filedocumented as of this encounter Care Teams Airplane Rigger Relationship Specialty Start Date End Date Dhiraj Myers, DO [address] [place] [address] PCP - General Family Medicine 01/24/17 documented as of this encounter
--- OUTSIDE RECORDS SUMMARY | 2023-06-24 17:50 | External Medical Summary | Summary of Care ---
Author Name Unknown Organization [facility] Address [address] [place] [address] Phone [phone] Care Team Providers Care Dry Transfer Man Name Role Phone GregDhiraj lynn Primary Care Provider [phone] Reason for Visit * Reason Onset Date Comments Appointment 02/06/2023 Encounter Details Date Type Department Care Team Description 02/06/2023 Telephone Psychiatry, [place] [address] [place] [address] Shalini Rey, [facility] [address] [place] [address] Appointment Allergies No known active allergiesdocumented as of this encounter (statuses as of 02/06/2023) Medications Medication Sig Dispensed Refills Start Date End Date Status Blood Glucose Monitoring Suppl (ONETOUCH ULTRA SYSTEM) W/DEVICE KIT Use as directed 2 times a day. 1 Kit 0 06/28/2016 Active Insulin Pen Needle 30G X 5 MMIndications:Type 2 diabetes, HbA1C goal < 8% (HCC) To be used with Lantus nightly 100 Each 3 10/07/2021 Active OneTouch Verio Flex System w/Device Kit USE TO CHECK BLOOD SUGAR TWO TIMES A DAY. 1 Kit 0 04/13/2022 3 Active glipiZIDE ER 5 MG Oral Tablet Extended Release 24 Hour (glipiZIDE XL)Indications:Typ e 2 diabetes, HbA1C goal < 8% (HCC) Take 1 Tablet by mouth in the morning. 30 minutes before a meal.. 30 Tablet 5 09/21/2022 Active hydrOXYzine Pamoate 25 MG Oral Capsule (Vistaril)Indicati ons:DEVANTE (generalized anxiety disorder) Take 1 Capsule by mouth 2 times a day as needed for Anxiety. 20 Capsule 1 09/21/2022 Active Apixaban 5 MG Oral Tablet (Eliquis) Take 1 Tablet by mouth in the morning and 1 Tablet before bedtime. 60 Tablet 5 10/07/2022 Active Creon 30084-89447 UNIT Oral Capsule Delayed Release Particles (Pancrelipase (Fuh-Jiqm-Liqk)) take 1 cap orally three times a day administer with meals and/or snacks 90 Capsule 0 12/21/2022 Active Insulin Glargine Solostar 100 UNIT/ML Subcutaneous Solution Pen-injector (Lantus SoloStar)Indicatio ns:Type 2 diabetes, HbA1C goal < 8% (HCC) inject subcutaneously 15 units at bedtime. 15 mL 12/27/2022 Active OneTouch Verio w/Device KitIndications:Typ e 2 diabetes, HbA1C goal < 8% (HCC) Use to check blood sugar four times a day 1 Kit 0 12/27/2022 Active Glucose Blood In Vitro StripIndications:T ype 2 diabetes, HbA1C goal < 8% (HCC) USE UP TO 4 TIMES DAILY 100 Strip 11 12/27/2022 Active OneTouch Delica Plus [id number] ns:Type 2 diabetes, HbA1C goal < 8% (HCC) Use as directed up to 4 times a day as needed for Hyperglycemia (high sugar). 100 Each 12/27/2022 Active Alcohol Wipes 70 % PadIndications:Typ e 2 diabetes, HbA1C goal < 8% (HCC) USe to help check blood sugar 100 Each 12/27/2022 Active Albuterol Sulfate HFA 108 (90 Base) MCG/ACT Inhalation Aerosol Solution Inhale 2 Puffs by mouth every 6 hours as needed for Shortness of Breath. 18 g 12/27/2022 Active Amitriptyline HCl 50 MG Oral Tablet (Elavil)Indication s:Recurrent major depressive disorder, in partial remission (HCC) Take 1 Tablet by mouth at bedtime. 30 Tablet 12/27/2022 Active Pantoprazole Sodium 40 MG Oral Tablet Delayed Release (Protonix)Indicati ons:Gastroesophage al reflux disease without esophagitis,Srinivas t's esophagus without dysplasia Take 1 Tablet by mouth in the morning. 90 Tablet 1 12/27/2022 Active Folic Acid 1 MG Oral Tablet take one tablet (1 mg )orally daily in the morning 30 Tablet 0 01/05/2023 Active Gabapentin 600 MG Oral Tablet (Neurontin) take 1 tablet (600 mg) orally every 12 hours for 2 days 4 Tablet 0 01/05/2023 Active Daily-Chriss Multivitamin Oral TabletIndications: pack [id number] Take one tablet daily in the morning. [...] 15 days 30 Tablet 0 01/05/2023 Active documented as of this encounter (statuses as of 02/06/2023) Active Problems Problem Noted Date Alcohol-induced chronic [...] as of this encounter (statuses as of 02/06/2023) Resolved Problems Problem Noted Date Resolved Date [...] as of this encounter (statuses as of 02/06/2023) Immunizations Name Administration Dates Next Due Pneumococcal [...] on file documented as of this encounter Plan of Treatment Upcoming Encounters Date Type Specialty Care Team Description 03/10/2023 Hospital Encounter Endoscopy Camila Gentile MD [address] [place] [address] 03/10/2023 Surgery Endoscopy Camila Gentile MD [address] [place] [address] ESOPHAGOGASTRODUODENOSCOPY (EGD), FLEXIBLE, TRANSORAL, DIAGNOSTIC 04/18/2023 Office Visit Urology Jeffry Hernandez, Sukhjinder Hawk MD [address] [place] [place] [address] 05/26/2023 Hospital Encounter Endoscopy Homero Mullen MD [address] [place] [address] 05/26/2023 Surgery Endoscopy Homero Mullen MD [address] [place] [address] COLONOSCOPY FLEXIBLE PROXIMAL DIAGNOSTIC 07/04/2023 Office Visit Family Medicine Dhiraj Myers, DO [address] [place] [address] Scheduled Procedures Name Priority Associated Diagnoses Date/Ti me ESOPHAGOGASTRODUODENOSCOPY ( EGD), FLEXIBLE, TRANSORAL, DIAGNOSTIC Alcohol-induced chronic pancreatitis (HCC) Chronic pancreatitis, unspecified pancreatitis type (HCC) 03/10/2023 10:15 AM EDT ESOPHAGOGASTRODUODENOSCOPY ( EGD), FLEXIBLE, TRANSORAL, ENDOSCOPIC ULTRASOUND Alcohol-induced chronic pancreatitis (HCC) Chronic pancreatitis, unspecified pancreatitis type (HCC) 03/10/2023 10:15 AM EDT COLONOSCOPY FLEXIBLE PROXIMA L DIAGNOSTIC Rectal bleeding 05/26/2023 10:45 AM EDT Health Maintenance Due Date Last Done Comments Hepatitis B (1 of 3 - 3-dose series) 1975 COVID-19 Vaccine (#1) 05/09/1974 HIV Screening 1988 Hepatitis C Screening 11/08/1991 Pneumococcal Vaccine: Pediatrics (0 to 5 Years) and At-Risk Patients (6 to 64 Years) (2 - PCV) 12/16/2014 12/16/2013 Cologuard 2018 Colonoscopy 2018 Colorectal Cancer Screening 2018 Fecal Occult Blood Test 2018 01/22/2000 Sigmoidoscopy 2018 Depression Screening, Annual for Pts 12 and Over 08/20/2020 08/20/2019 DIABETES-FOOT EXAM 10/23/2021 10/23/2020, 0 10/12/2017, 01/12/2016, Additional history exists DIABETES-EYE EXAM 10/13/2022 10/13/2021, , 08/13/2018, Additional history exists Lipid Panel 03/29/2023 03/29/2018, 07/08, 04/20/2015, Additional history exists HbA1c 04/02/2023 10/03/2022, 09/0 01/2022, 01/19/2021, Additional history exists Influenza Vaccine (FLU shot) (#1) 2023 06/19/2014 Albumin/Creatinine Ratio 10/03/2023 023, 04/19/2021, 03/10/2020, Additional history exists GFR 10/03/2023 10/03/2022, 07/09, 04/12/2022, Additional history exists DTaP,Tdap,and Td Vaccines (2 - Td or Tdap) 06/19/2024 06/19/2014 GARDASIL-HPV IMMUNIZATION SERIES Aged Out No longer eligible based on patient's age to complete this topic MENINGOCOCCAL (MENACTRA/MENVEO) Aged Out No longer eligible based on patient's age to complete this topic documented as of this encounter Medical Devices Not on filedocumented as of this encounter Visit Diagnoses Diagnosis Deferred condition on axis I- Primary Other unknown and unspecified cause of morbidity or mortality Alcohol-induced chronic pancreatitis (HCC) Chronic pancreatitis Chronic pancreatitis, unspecified pancreatitis type (HCC) Rectal bleeding Hemorrhage of rectum and anus documented in this encounter Care Teams Dry Transfer Man Relationship Specialty Start Date End Date Dhiraj Myers, [address] [place] [address] PCP - General Family Medicine 01/24/17 documented as of this encounter
--- OUTSIDE RECORDS SUMMARY | 2023-06-24 17:50 | External Medical Summary | Summary of Care ---
Author Name Unknown Organization [facility] Address [address] [facility] [address] Phone [phone] Care Team Providers Care Service Support Representative Name Role Phone GregDhiraj lynn Remedios OVERTON Primary Care Provider [phone] Encounter Details Date Type Department Care Team Description 03/09/2023 Photographer ModelParboiler Practice [facility] [address] [facility] [address] Ayla Sidhu, SAM Medical home patient encounter* Allergies No known active allergiesdocumented as of this encounter (statuses as of 03/09/2023) Medications Medication Sig Dispensed Refills Start Date End Date Status Blood Glucose Monitoring Suppl (ONETOUCH ULTRA SYSTEM) W/DEVICE KIT Use as directed 2 times a day. 1 Kit 0 06/28/2016 Active OneTouch Verio Flex System w/Device Kit USE TO CHECK BLOOD SUGAR TWO TIMES A DAY. 1 Kit 0 04/13/2022 3 Active glipiZIDE ER 5 MG Oral Tablet Extended Release 24 Hour (glipiZIDE XL)Indications:Typ e 2 diabetes, HbA1C goal < 8% ([facility]) Take 1 Tablet by mouth in the [...] bedtime. 60 Tablet 5 10/07/2022 Active Creon [id number] UNIT Oral Capsule Delayed Release Particles (Pancrelipase (Gah-Tgdl-Xmix)) take 1 cap orally three times a [...] 11 12/27/2022 Active Alcohol Wipes 70 % PadIndications:Typ [...] 01/05/2023 Active Daily-Chriss Multivitamin Oral TabletIndications: pack [id number] Take one tablet daily in the morning. [...] days 30 Tablet 0 01/05/2023 Active Pen [place] 32G X 4 MM Use as directed. 100 Each 02/24/2023 Active OneTouch Delica Plus [id number] ns:Type 2 diabetes, HbA1C goal < 8% (HCC) Use as directed 4 times a day as needed for Hyperglycemia (high sugar). 100 Each 02/24/2023 Active traMADol HCl 50 MG Oral Tablet (Ultram) take one tablet orally once daily As Needed for pain 10 Tablet 0 02/24/2023 Active documented as of this encounter (statuses as of 03/09/2023) Active Problems Problem Noted Date Alcohol-induced chronic [...] QAM, 600mg QPM, librium taper. [facility] Refused rehab. Grandmother cancer around -was close. Father committed suicide by gunshot 5mo later, patient found body ICD-10 update of inactive term Insomnia documented as of this encounter (statuses as of 03/09/2023) Resolved Problems Problem Noted Date Resolved Date [...] as of this encounter (statuses as of 03/09/2023) Immunizations Name Administration Dates Next Due Pneumococcal [...] on file documented as of this encounter Progress Notes * Alya Sidhu RN - 03/09/2023 3:56 PM EDT 1. Follow-up Routine 2. Attempted Phone Call Second Attempt 3. Call Outcome Left Voicemail/Message 4. Plan To attempt another outreach documented in this encounter Plan of Treatment Upcoming Encounters Date Type Specialty Care Team Description 04/18/2023 Office Visit Urology Jeffry Hernandez, Sukhjinder Hawk MD [address] [place] [place] [address] 05/26/2023 Hospital Encounter Endoscopy Homero Mullen MD [address] [place] [address] 05/26/2023 Surgery Endoscopy Homero Mullen MD [address] [place] [address] COLONOSCOPY FLEXIBLE PROXIMAL DIAGNOSTIC 07/04/2023 Office Visit Family Medicine Dhiraj Myers, DO [address] [place] [address] Scheduled Procedures Name Priority Associated Diagnoses Date/Ti me COLONOSCOPY FLEXIBLE PROXIMA L DIAGNOSTIC Rectal bleeding [...] 04/20/2015, Additional history exists HbA1c 04/02/2023 10/03/2022, 01/2022, 01/19/2021, Additional history exists Influenza Vaccine [...] as of this encounter Visit Diagnoses Diagnosis Medical home patient encounter- Primary Other specified examination Rectal bleeding Hemorrhage of rectum and anus documented in this encounter Care Teams Service Support Representative Relationship Specialty Start Date End Date Dhiraj Myers, DO [address] [place] [address] PCP - General Family Medicine 01/24/17 documented as of this encounter
--- OUTSIDE RECORDS SUMMARY | 2023-06-24 17:50 | External Medical Summary | Summary of Care ---
Author Name Unknown Organization [facility] [address] [facility] [address] Phone [phone] Care Team Providers Care Key Worker Name Role Phone GregDhiraj lynn Remedios OVERTON Primary Care Provider [phone] Encounter Details Date Type Department Care Team Description 03/14/2023 Sales NegotiatorTeradata Developer Practice [place] [address] [facility] [address] Ayla Sidhu, SAM Medical home patient encounter* Allergies No known active allergiesdocumented as of this encounter (statuses as of 03/14/2023) Medications Medication Sig Dispensed Refills Start Date [...] e 2 diabetes, HbA1C goal < 8% ([facility]) Take 1 Tablet by mouth in the [...] bedtime. 60 Tablet 5 10/07/2022 Active Creon 09404-10885 UNIT Oral Capsule Delayed Release Particles (Pancrelipase (Jlk-Pixd-Wzbv)) take 1 cap orally three times a [...] 01/05/2023 Active Daily-Chriss Multivitamin Oral TabletIndications: pack [id number] Take one tablet daily in the morning. [...] days 30 Tablet 0 01/05/2023 Active Pen [place]rie 32G X 4 MM Use as directed. 100 Each 02/24/2023 Active OneTouch Delica Plus [id number] ns:Type 2 diabetes, HbA1C goal < 8% (HCC) Use as directed 4 times a day as needed for Hyperglycemia (high sugar). 100 Each 02/24/2023 Active traMADol HCl 50 MG Oral Tablet (Ultram) take one tablet orally once daily As Needed for pain 10 Tablet 0 02/24/2023 Active documented as of this encounter (statuses as of 03/14/2023) Active Problems Problem Noted Date Alcohol-induced chronic [...] QAM, 600mg QPM, librium taper. [facility]. Refused rehab. Grandmother cancer around -was close. Father committed suicide by gunshot 5mo later, patient found body ICD-10 update of inactive term Insomnia documented as of this encounter (statuses as of 03/14/2023) Resolved Problems Problem Noted Date Resolved Date [...] as of this encounter (statuses as of 03/14/2023) Immunizations Name Administration Dates Next Due Pneumococcal [...] as of this encounter Progress Notes * Ayla Sidhu RN - 03/14/2023 4:24 PM EDT 1. Follow-up Post Discharge 2. Attempted Phone Call Third Attempt 3. Call Outcome Left Voicemail/Message 4. Plan To attempt another outreach documented in this encounter Plan of Treatment Upcoming Encounters Date Type Specialty Care Team Description 04/18/2023 Office Visit Urology Jeffry Hernandez, Sukhjinder Hawk MD [address] [place] [place] [address] 05/26/2023 Hospital Encounter Endoscopy Homero Mullen MD [address] [place] [address] 05/26/2023 Surgery Endoscopy Homero Mullen MD [address] [place] [address] COLONOSCOPY FLEXIBLE PROXIMAL DIAGNOSTIC 07/04/2023 Office Visit Family Medicine Dhiraj Myers, DO [address] [facility] [place] [address] Scheduled Procedures Name Priority Associated Diagnoses Date/Ti [...] anus documented in this encounter Care Teams Key Worker Relationship Specialty Start Date End Date Dhiraj Myers, DO [address] [place] [address] PCP - General Family Medicine 01/24/17 documented as of this encounter
--- OUTSIDE RECORDS SUMMARY | 2023-06-24 17:50 | External Medical Summary | Summary of Care ---
Author Name Unknown Organization [facility] Address [address] [place] [address] Phone [phone] Care Team Providers Care Seafood And Service Meat Manager Name Role Phone GregDhiraj lynn Primary Care Provider [phone] Reason for Visit * Reason Onset Date Comments case management 02/01/2023 Encounter Details Date Type Department Care Team Description 02/01/2023 Telephone Care Coordination [address] [place] [address] Alcira Braga, MS [address] [place] [address] case management Allergies No known active allergiesdocumented as of this encounter (statuses as of 02/01/2023) Medications Medication Sig Dispensed Refills Start Date [...] bedtime. 60 Tablet 5 10/07/2022 Active Creon 08455-41869 UNIT Oral Capsule Delayed Release Particles (Pancrelipase (Frg-Wsfx-Wbqa)) take 1 cap orally three times a [...] Strip 11 12/27/2022 Active OneTouch Delica Plus [id number] ns:Type 2 diabetes, HbA1C goal < 8% [...] 01/05/2023 Active Daily-Chriss Multivitamin Oral TabletIndications: pack tajs=486 Take one tablet daily in the morning. [...] as of this encounter (statuses as of 02/01/2023) Active Problems Problem Noted Date Alcohol-induced chronic [...] as of this encounter (statuses as of 02/01/2023) Resolved Problems Problem Noted Date Resolved Date [...] as of this encounter (statuses as of 02/01/2023) Immunizations Name Administration Dates Next Due Pneumococcal [...] encounter Miscellaneous Notes * Telephone Encounter - Alcira Braga, - 02/01/2023 9:56 AM EDT 1. Follow-up Routine 2. Attempted Phone Call Third Attempt 3. Call Outcome Left Voicemail/Message 4. Plan To send letter documented in this encounter Plan of Treatment Upcoming Encounters Date Type Specialty Care Team Description 3 Office Visit Family Medicine Chari López PA-C [address] [facility] [place] [address] 3 Telemedicine Psychology Shalini Rey, GEODETIC COMPUTATOR [address] [place] [address] 3 Hospital Encounter Endoscopy Camila Gentile MD [address] [place] [address] 3 Surgery Endoscopy Camila Gentile MD [address] [place] [address] ESOPHAGOGASTRODUODENOSCOPY (EGD), FLEXIBLE, TRANSORAL, DIAGNOSTIC 3 Office Visit Urology Jeffry Hernandez, Sukhjinder Hawk MD [address] [facility] [address] [place] [address] 3 Hospital Encounter Endoscopy Homero Mullen MD [address] [place] [address] 3 Surgery Endoscopy Homero Mullen MD [address] [place] [address] COLONOSCOPY FLEXIBLE PROXIMAL DIAGNOSTIC 3 Office Visit Family Medicine Dhiraj Myers DO [address] [place] [address] Scheduled Procedures Name Priority Associated Diagnoses Date/Ti [...] 04/20/2015, Additional history exists HbA1c 04/02/2023 10/03/2022, 0901/2022, 01/19/2021, Additional history exists Influenza Vaccine (FLU shot) (Season Ended) 2023 06/19/2014 Albumin/Creatinine Ratio 10/03/2023 023, 04/19/2021, [...] filedocumented as of this encounter Care Teams Seafood And Service Meat Manager Relationship Specialty Start Date End Date Dhiraj Myers, DO [address] [place] [address] PCP - General Family Medicine 01/24/17 documented as of this encounter
--- OUTSIDE RECORDS SUMMARY | 2023-06-24 17:50 | External Medical Summary | Summary of Care ---
Author Name Unknown Organization [facility] Address [address] [facility] [address] Phone [phone] Care Team Providers Care It Infrastructure Engineer Name Role Phone GreggeorginasanketDhiraj Remedios [place] Primary Care Provider [phone] Encounter Details Date Type Department Care Team Description 01/27/2023 Jacquard Lace WeaverOptical Laboratory Mechanic Practice Lilian Meyer [place] [address] [facility] [address] Ayla Sidhu, SAM Medical home patient encounter* Allergies No known active allergiesdocumented as of this encounter (statuses as of 01/27/2023) Medications Medication Sig Dispensed Refills Start Date [...] bedtime. 60 Tablet 5 10/07/2022 Active Creon 90603-27556 UNIT Oral Capsule Delayed Release Particles (Pancrelipase (Bid-Sygs-Xtlr)) take 1 cap orally three times a day administer with meals and/or snacks 90 Capsule 0 12/21/2022 Active Insulin Glargine Solostar 100 UNIT/ML Subcutaneous Solution Pen-injector (Lantus SoloStar)Indicatio ns:Type 2 diabetes, HbA1C goal < 8% (HCC) inject subcutaneously 15 units at bedtime. 15 mL 5 12/27/2022 Active OneTouch Verio w/Device KitIndications:Typ e 2 diabetes, HbA1C goal < 8% (HCC) Use to check blood sugar four times a day 1 Kit 0 12/27/2022 Active Glucose Blood In Vitro StripIndications:T ype 2 diabetes, HbA1C goal < 8% (HCC) USE UP TO 4 TIMES DAILY 100 Strip 11 12/27/2022 Active OneTouch Delica Plus [id number] ns:Type 2 diabetes, HbA1C goal < 8% [...] 01/05/2023 Active Daily-Chriss Multivitamin Oral TabletIndications: pack purg=535 Take one tablet daily in the morning. [...] as of this encounter (statuses as of 01/27/2023) Active Problems Problem Noted Date Alcohol-induced chronic [...] as of this encounter (statuses as of 01/27/2023) Resolved Problems Problem Noted Date Resolved Date [...] as of this encounter (statuses as of 01/27/2023) Immunizations Name Administration Dates Next Due Pneumococcal [...] Progress Notes * Ayla Sidhu RN - 01/27/2023 3:13 PM EDT 1. Follow-up Post Discharge 2. Attempted Phone Call Second Attempt 3. Call Outcome Left Voicemail/Message 4. Plan To attempt another outreach documented in this encounter Plan of Treatment Upcoming Encounters Date Type Specialty Care Team Description 3 Office Visit Family Medicine Chari López PA-C [address] [place] [address] 3 Telemedicine Psychology Shalini Rey, DIRECTOR OF COMMUNITY SERVICES [address] [place] [address] 3 Hospital Encounter Endoscopy Camila Gentile MD [address] [place] [address] 3 Surgery Endoscopy Camila Gentile MD [address] [place] [address] ESOPHAGOGASTRODUODENOSCOPY (EGD), FLEXIBLE, TRANSORAL, DIAGNOSTIC 3 Office Visit Urology Jeffry Hernandez, Sukhjinder Hawk MD [address] [place] [address] [place] [address] 3 Hospital Encounter Endoscopy Homero Mullen MD [address] [place] [address] 3 Surgery Endoscopy Homero Mullen MD [address] [place] [address] COLONOSCOPY FLEXIBLE PROXIMAL DIAGNOSTIC 3 Office Visit Family Medicine Dhiraj Myers DO [address] [place], [place] [address] Scheduled Procedures Name Priority Associated Diagnoses Date/Ti [...] home patient encounter- Primary Other specified examination Alcohol-induced chronic pancreatitis (HCC) Chronic pancreatitis Chronic pancreatitis, unspecified pancreatitis type (HCC) Rectal bleeding Hemorrhage of rectum and anus documented in this encounter Care Teams It Infrastructure Engineer Relationship Specialty Start Date End Date Dhiraj Myers, DO [address] [place] [address] PCP - General Family Medicine 01/24/17 documented as of this encounter
--- OUTSIDE RECORDS SUMMARY | 2023-06-24 17:50 | External Medical Summary | Summary of Care ---
Author Name Unknown Organization [facility] Address [address] [facility] [place] [address] Phone [phone] Care Team Providers Care Manager Oracle Name Role Phone Dhiraj Myers Primary Care Provider [phone] Reason for Visit * Reason Onset Date Comments Appointment 04/17/2023 Encounter Details Date Type Department Care Team Description 04/17/2023 Telephone Urology Frannie Dickerson [address] [place] [address] [place] [address] Sukhjinder Teran Jr., MD [address] [place] [address] [place] [address] Appointment Allergies No known active allergiesdocumented as of this encounter (statuses as of 04/21/2023) Medications Medication Sig Dispensed Refills Start Date End Date Status Blood Glucose Monitoring Suppl ([employer] ULTRA SYSTEM) W/DEVICE KIT Use as directed 2 times a day. 1 Kit 0 06/28/2016 Active glipiZIDE ER 5 MG Oral Tablet Extended Release 24 Hour (glipiZIDE XL)Indications:Type 2 diabetes, HbA1C goal < 8% ([facility]) Take 1 Tablet by mouth in [...] bedtime. 60 Tablet 5 10/07/2022 Active Creon [id number] UNIT Oral Capsule Delayed Release Particles (Pancrelipase (Xzc-Cgrf-Bfvm)) take 1 cap orally three times a [...] Tablet by mouth at bedtime. 30 Tablet 5 12/27/2022 Active Pantoprazole Sodium 40 MG Oral [...] 01/05/2023 Active Daily-Chriss Multivitamin Oral TabletIndications:p ack hozf=820 Take one tablet daily in the morning. [...] days 30 Tablet 0 01/05/2023 Active Pen [place] 32G X 4 MM Use as directed. 100 Each 02/24/2023 Active OneTouch Delica Plus [id number] s:Type 2 diabetes, HbA1C goal < 8% [...] as of this encounter (statuses as of 04/21/2023) Active Problems Problem Noted Date Alcohol-induced chronic [...] as of this encounter (statuses as of 04/21/2023) Resolved Problems Problem Noted Date Resolved Date [...] as of this encounter (statuses as of 04/21/2023) Immunizations Name Administration Dates Next Due Pneumococcal [...] encounter Miscellaneous Notes * Telephone Encounter - Roselyn Jamison MED ASSIST - 04/17/2023 2:27 PM EDT Appointment rescheduled and patient aware * Telephone Encounter - HARLEY Dominguez - 04/17/2023 10:55 AM EDT Left message again asking patient to call back, we need to reschedule * Telephone Encounter - Amanda Shah LPN - 04/17/2023 8:55 AM EDT Pt has an appt tomorrow with Dr. Teran for Peyronie's. Dr. Teran does not see Peyronie's and ptneeds rescheduled. Unable to reach pt at this time, left message asking pt to return call to office. documented in this encounter Plan of Treatment Upcoming Encounters Date Type Specialty Care Team Description 05/26/2023 Hospital Encounter Endoscopy Homero Mullen MD [address] [place] [address] 05/26/2023 Surgery Endoscopy Homero Mullen MD [address] [place] [address] COLONOSCOPY FLEXIBLE PROXIMAL DIAGNOSTIC 06/05/2023 Office Visit Urology Kemar Hagan MD [address] [place] [address] [place] [address] 07/04/2023 Office Visit Family Medicine Dhiraj Myers, DO [address] [facility] [place] [address] Scheduled Procedures Name Priority Associated Diagnoses Date/Ti me COLONOSCOPY FLEXIBLE PROXIMA L DIAGNOSTIC Rectal bleeding 05/26/2023 11:15 AM EDT Health Maintenance Due Date Last Done Comments Hepatitis B (1 of 3 - 3-dose series) 1973 COVID-19 Vaccine (#1) 05/09/1974 HIV Screening 1988 Hepatitis C Screening 11/08/1991 Pneumococcal Vaccine: Pediatrics (0 to 5 Years) and At-Risk Patients (6 to 64 Years) (2 - PCV) 12/16/2014 12/16/2013 Cologuard 2018 Colonoscopy 2018 Sigmoidoscopy 2018 Depression [...] 03/10/2020, Additional history exists GFR 10/03/2023 10/03/2022, 12, 04/12/2022, Additional history exists Colorectal Cancer Screening [...] filedocumented as of this encounter Care Teams Manager Oracle Relationship Specialty Start Date End Date Dhiraj Myers, DO 200 [facility], [place] [address] PCP - General Family Medicine 01/24/17 documented as of this encounter
--- OUTSIDE RECORDS SUMMARY | 2023-06-24 17:50 | External Medical Summary | Summary of Care ---
Author Name Unknown Organization [facility] Address [address] [facility] [address] Phone [phone] Care Team Providers Care Cdl B Driver Name Role Phone GreggeorginasanketDhiraj Remedios [place] Primary Care Provider [phone] Encounter Details Date Type Department Care Team Description 01/25/2023 Rock Wool ApplicatorWeld Inspector Practice Lilian [place] [address] [facility] [address] Ayla Sidhu, SAM Medical home patient encounter* Allergies No known active allergiesdocumented as of this encounter (statuses as of 01/25/2023) Medications Medication Sig Dispensed Refills Start Date [...] bedtime. 60 Tablet 5 10/07/2022 Active Creon [id number] UNIT Oral Capsule Delayed Release Particles (Pancrelipase (Jkq-Eztr-Vqfe)) take 1 cap orally three times a [...] Strip 11 12/27/2022 Active OneTouch Delica Plus [id number] ns:Type 2 diabetes, HbA1C goal < 8% [...] 01/05/2023 Active Daily-Chriss Multivitamin Oral TabletIndications: pack irqi=627 Take one tablet daily in the morning. [...] as of this encounter (statuses as of 01/25/2023) Active Problems Problem Noted Date Alcohol-induced chronic [...] as of this encounter (statuses as of 01/25/2023) Resolved Problems Problem Noted Date Resolved Date [...] as of this encounter (statuses as of 01/25/2023) Immunizations Name Administration Dates Next Due Pneumococcal [...] Progress Notes * Ayla Sidhu RN - 01/25/2023 2:46 PM EDT 1. Follow-up Post Discharge 2. Attempted Phone Call First Attempt 3. Call Outcome Left Voicemail/Message 4. Plan To attempt another outreach documented in this encounter Plan of Treatment Upcoming Encounters Date Type Specialty Care Team Description 3 Pharmacy Pharmacy Pharmacist2, [facility] [address] [place] [address] Type 2 diabetes, HbA1C goal < 8% ([facility])* 3 Office Visit Family Medicine Chari López PA-C [address] [place] [address] 3 Telemedicine Psychology Shalini Rey, COSMETIC CONSULTANT [address] [place] [address] 3 Hospital Encounter Endoscopy Camila Gentile MD [address] [place] [address] 3 Surgery Endoscopy Camila Gentile MD [address] [place] [address] ESOPHAGOGASTRODUODENOSCOPY (EGD), FLEXIBLE, TRANSORAL, DIAGNOSTIC 3 Office Visit Urology Jeffry Hernandez, Sukhjinder Hawk MD [address] [place] [address] [place], [place] [address] 3 Hospital Encounter Endoscopy Homero Mullen MD [address] [place] [address] 3 Surgery Endoscopy Homero Mullen MD [address] [place] [address] COLONOSCOPY FLEXIBLE PROXIMAL DIAGNOSTIC 3 Office Visit Family Medicine Dhiraj Myers, DO [address] [place] [address] Scheduled Procedures Name Priority Associated Diagnoses Date/Ti [...] 04/20/2015, Additional history exists HbA1c 04/02/2023 10/03/2022, 09/01/2022, 01/19/2021, Additional history exists Influenza Vaccine (FLU [...] as of this encounter Visit Diagnoses Diagnosis Type 2 diabetes, HbA1C goal < 8% (HCC)- Primary Type II or unspecified type diabetes mellitus without mention of complication, not stated as uncontrolled Medical home patient encounter- Primary Other specified examination Alcohol-induced chronic pancreatitis (HCC) Chronic pancreatitis Chronic pancreatitis, unspecified pancreatitis type (HCC) Rectal bleeding Hemorrhage of rectum and anus documented in this encounter Care Teams Cdl B Driver Relationship Specialty Start Date End Date Dhiraj Myers, DO [address] [place] [address] PCP - General Family Medicine 01/24/17 documented as of this encounter
--- OUTSIDE RECORDS SUMMARY | 2023-06-24 17:50 | External Medical Summary ---
Author Name Unknown Address Unknown Organization K01:[facility] [address] [facility] [place] [address] Laboratory Report Ordering Provider Test Date Status MONAE MESSINA 05/05/2023 18:04:00 Final Dried Blood Spot specimens h ave been validated for general health screening purposes only. This test should not be used for diagnosis or medical treatment without confirmation by other medically established means. The use of HbA1c to monitor glycemic status is based on normal hemoglobin and HbA composition, and should not be used in patients with abnormal hemoglobin that affects the half life of the red blood cell or the in vivo glycation rates.

This test was developed and its performance characteristics determined by [employer]. It has not been cleared or approved by the [place] Food and Drug Administration.

This test was performed as part of a [facility] fulfillment initiative.
null Observation Date Value Abnormality Reference (Units ) Status Hemoglobin A1c/Hemoglobin.total in DBS 05/05/2023 18:04:00 >8.0 Above high normal 4.0-5.6 (%) Final Glucose, estimated average 05/05/2023 18:04:00 >183 Above high normal <126 (mg/dL) Final Performing Location [facility] [address] [facility] [place] [address]
--- OUTSIDE RECORDS SUMMARY | 2023-06-24 17:50 | External Medical Summary | Summary of Care ---
Author Name Unknown Organization [facility] Address [address] [facility] [place] [address] Phone [phone] Care Team Providers Care A&P Mechanic Name Role Phone GregDhiraj lynn Primary Care Provider [phone] Encounter Details Date Type Department Care Team Description 03/07/2023 Telephone OR [facility], Operating Room [facility] [address] [place] [address] Camila Gentile MD [address] [place] [id number] Allergies No known active allergiesdocumented as of [...] 2 diabetes, HbA1C goal < 8% ([facility]) Take 1 Tablet by mouth in the [...] bedtime. 60 Tablet 5 10/07/2022 Active Creon [id number] UNIT Oral Capsule Delayed Release Particles (Pancrelipase (Dns-Whrd-Tvzh)) take 1 cap orally three times a [...] 01/05/2023 Active Daily-Chriss Multivitamin Oral TabletIndications: pack zqlk=155 Take one tablet daily in the morning. [...] days 30 Tablet 0 01/05/2023 Active Pen [place] 32G X 4 MM Use as directed. 100 Each 02/24/2023 Active OneTouch Delica Plus [id number] ns:Type 2 diabetes, HbA1C goal < 8% [...] * Telephone Encounter - LILIANA Agustin - 03/09/2023 12:27 PM EDT LMcell letting pt know that procedure for tomorrow has been canceled d/t not returning PAT phone calls for eval. * Telephone Encounter - Aleida Bess RN - 03/09/2023 8:38 AM EDT Attempted to call for pre anesthesia evaluation. No answer. Voice mail left requesting return call Pool notiifed * Telephone Encounter - Aleida Bess RN - 03/08/2023 3:04 PM EDT Attempted to call for pre anesthesia evaluation. No answer. Voice mail left requesting return call * Telephone Encounter - Aleida Bess RN - 03/07/2023 9:10 AM EDT Attempted to call for pre anesthesia evaluation. No answer. Voice mail left requesting return call documented in this encounter Plan of Treatment Upcoming Encounters Date Type Specialty Care Team Description 04/18/2023 Office Visit Urology Jeffry Hernandez, Sukhjinder Hawk MD [address] [place] [address] [place] [address] 05/26/2023 Hospital Encounter Endoscopy Homero Mullen MD [address] [place] [address] 05/26/2023 Surgery Endoscopy Homero Mullen MD [address] [place] [address] COLONOSCOPY FLEXIBLE PROXIMAL DIAGNOSTIC 07/04/2023 Office Visit Family Medicine Dhiraj Myers, DO 200 [place] [address] Scheduled Procedures Name Priority Associated Diagnoses Date/Ti [...] filedocumented as of this encounter Care Teams A&P Mechanic Relationship Specialty Start Date End Date Dhiraj Myers, DO [address] [place] [address] PCP - General Family Medicine 01/24/17 documented as of this encounter
--- OUTSIDE RECORDS SUMMARY | 2023-06-24 17:50 | External Medical Summary | Summary of Care ---
Author Name Unknown Organization [facility] Address [address] [facility] [place] [address] Phone [phone] Care Team Providers Care Glass Science Engineer Name Role Phone Dhiraj Myers DO Primary Care Provider [phone] Reason for Visit * Reason Onset Date Comments Health Maintenance 05/05/2023 Encounter Details Date Type Department Care Team Description 05/05/2023 Telephone Family Practice [facility] [place] [address] [place] [address] Dhiraj Myers DO 200 [facility] [place] [address] Health Maintenance Allergies No known active allergiesdocumented as of this encounter (statuses as of 05/05/2023) Medications Medication Sig Dispensed Refills Start Date End Date Status Blood Glucose Monitoring Suppl ([employer] ULTRA SYSTEM) W/DEVICE KIT Use as directed 2 times a day. 1 Kit 0 06/28/2016 Active glipiZIDE ER 5 MG Oral Tablet Extended Release 24 Hour (glipiZIDE XL)Indications:Type 2 diabetes, HbA1C goal < 8% ([facility]) Take 1 Tablet by mouth in the [...] bedtime. 60 Tablet 5 10/07/2022 Active Creon [id number] UNIT Oral Capsule Delayed Release Particles (Pancrelipase (Qcf-Darx-Pulg)) take 1 cap orally three times a [...] 01/05/2023 Active Daily-Chriss Multivitamin Oral TabletIndications:p ack smeh=418 Take one tablet daily in the morning. [...] days 30 Tablet 0 01/05/2023 Active Pen [place] 32G X 4 MM Use as directed. 100 Each 02/24/2023 Active OneTouch Delica Plus [id number] s:Type 2 diabetes, HbA1C goal < 8% [...] as of this encounter (statuses as of 05/05/2023) Active Problems Problem Noted Date Alcohol-induced chronic [...] as of this encounter (statuses as of 05/05/2023) Resolved Problems Problem Noted Date Resolved Date [...] as of this encounter (statuses as of 05/05/2023) Immunizations Name Administration Dates Next Due Pneumococcal [...] encounter Miscellaneous Notes * Telephone Encounter - Patricia Barr LPN - 05/05/2023 9:32 AM EDT Care Gaps Comprehensive Care Outreach Last Office/Telemedicine Visit: 12/27/2022 (in office), Visit date not found (telemedicine) Next Office Visit: 07/04/2023 Hemoglobin AIC Results: Lab Results Component Value Date/Time HEMOGLOBIN A1C - [facility] 10.2 (H) 10/03/2022 01:33 PM HEMOGLOBIN A1C - [facility] 10.1 (H) 04/12/2022 09:55 AM HEMOGLOBIN A1C - [facility] 8.9 (H) 03/10/2020 04:03 PM HEMOGLOBIN A1C - [facility] 7.8 (H) 08/20/2019 12:12 PM HEMOGLOBIN A1C - [facility] 9.5 (H) 05/24/2018 04:36 PM Reviewed Health Maintenance below: Health Maintenance Topic Date Due Hepatitis B (1 of 3 - 3-dose series) Never done COVID-19 Vaccine (1) Never done HIV Screening Never done Hepatitis C Screening Never done Pneumococcal Vaccine: Pediatrics (0 to 5 Years) and At-Risk Patients (6 to 64 Years) (2 - PCV) 12/16/2014 Depression Screening 08/20/2020 Diabetic Foot Exam 10/23/2021 DIABETES-EYE EXAM 10/13/2022 Lipid Panel 03/29/2023 HbA1c 04/02/2023 Influenza Vaccine (FLU shot) (1) 04/07/2023 Eye Foot Labs already ordered Care Gap Outreach Action Taken: Unable to reach not accepting calls documented in this encounter Plan of Treatment Upcoming Encounters Date Type Specialty Care Team Description 05/26/2023 Hospital Encounter Endoscopy Homero Mullen MD [address] [place] [address] 05/26/2023 Surgery Endoscopy Homero Mullen MD [address] [place] [address] COLONOSCOPY FLEXIBLE PROXIMAL DIAGNOSTIC 06/05/2023 Office Visit Urology Kemar Hagan MD [address] [place] [address] [place] [address] 07/04/2023 Office Visit Family Medicine Dhiraj Myers, DO 200 [place] [address] Scheduled Procedures Name Priority Associated Diagnoses Date/Ti [...] filedocumented as of this encounter Care Teams Glass Science Engineer Relationship Specialty Start Date End Date Dhiraj Myers, DO [address] [place] [address] PCP - General Family Medicine 01/24/17 documented as of this encounter
--- OUTSIDE RECORDS SUMMARY | 2023-06-24 17:50 | External Medical Summary | Summary of Care ---
Author Name Unknown Organization [facility] Address [address] [facility] [address] Phone [phone] Care Team Providers Care Bow Making Machine Operator Name Role Phone GregDhiraj lynn Remedios OVERTON Primary Care Provider [phone] Encounter Details Date Type Department Care Team Description 02/28/2023 [place] Library DirectorNutrient Management Specialist Practice Lilian [place] [address] [facility] [address] Ayla Sidhu, SAM Medical home patient encounter* Allergies No known active allergiesdocumented as of this encounter (statuses as of 02/28/2023) Medications Medication Sig Dispensed Refills Start Date [...] diabetes, HbA1C goal < 8% ([facility]) Take 1 Tablet by mouth in the [...] bedtime. 60 Tablet 5 10/07/2022 Active Creon 50097-31258 UNIT Oral Capsule Delayed Release Particles (Pancrelipase (Jkz-Uqux-Ghez)) take 1 cap orally three times a [...] 01/05/2023 Active Daily-Chriss Multivitamin Oral TabletIndications: pack xzcw=773 Take one tablet daily in the morning. [...] days 30 Tablet 0 01/05/2023 Active Pen [place] 32G X 4 MM Use as directed. 100 Each 02/24/2023 Active OneTouch Delica Plus [id number] ns:Type 2 diabetes, HbA1C goal < 8% (HCC) Use as directed 4 times a day as needed for Hyperglycemia (high sugar). 100 Each 02/24/2023 Active traMADol HCl 50 MG Oral Tablet (Ultram) take one tablet orally once daily As Needed for pain 10 Tablet 0 02/24/2023 Active documented as of this encounter (statuses as of 02/28/2023) Active Problems Problem Noted Date Alcohol-induced chronic [...] QAM, 600mg QPM, librium taper. [facility] Refused rehab. Grandmother cancer around -was close. Father committed suicide by gunshot 5mo later, patient found body ICD-10 update of inactive term Insomnia documented as of this encounter (statuses as of 02/28/2023) Resolved Problems Problem Noted Date Resolved Date [...] as of this encounter (statuses as of 02/28/2023) Immunizations Name Administration Dates Next Due Pneumococcal [...] Progress Notes * Ayla Sidhu RN - 02/28/2023 11:45 AM EDT 1. Follow-up Post Discharge 2. Attempted Phone Call First Attempt 3. Call Outcome Left Voicemail/Message 4. Plan To attempt another outreach documented in this encounter Plan of Treatment Upcoming Encounters Date Type Specialty Care Team Description 03/03/2023 Office Visit Family Medicine Dhiraj Myers, DO [address] [facility] [address] 03/10/2023 Hospital Encounter Endoscopy Camila Gentile MD [address] [place] [address] 03/10/2023 Surgery Endoscopy Camila Gentile MD [address] [place] [address] ESOPHAGOGASTRODUODENOSCOPY (EGD), FLEXIBLE, TRANSORAL, DIAGNOSTIC 04/18/2023 Office Visit Urology Jeffry Hernandez, Sukhjinder Hawk MD [address] [place] [address] [place] [address] 05/26/2023 Hospital Encounter Endoscopy Homero Mullen MD [address] [place] [address] 05/26/2023 Surgery Endoscopy Homero Mullen MD [address] [place] [address] COLONOSCOPY FLEXIBLE PROXIMAL DIAGNOSTIC 07/04/2023 Office Visit Family Medicine Dhiraj Myers, DO [address] [facility] [place] [address] Scheduled Procedures Name Priority Associated Diagnoses Date/Ti [...] Additional history exists Lipid Panel 03/29/2023 03/29/2018, 1208/2015, 04/20/2015, Additional history exists HbA1c 04/02/2023 10/03/2022, 09/0 01/2022, 01/19/2021, Additional history exists Influenza Vaccine (FLU shot) (#1) 2023 06/19/2014 Albumin/Creatinine Ratio 10/03/2023 023, 04/19/2021, 03/10/2020, Additional history exists GFR 10/03/2023 10/03/2022, 12/, 04/12/2022, Additional history exists DTaP,Tdap,and Td Vaccines [...] anus documented in this encounter Care Teams Bow Making Machine Operator Relationship Specialty Start Date End Date Dhiraj Myers, DO 200 [facility] [place] [address] PCP - General Family Medicine 01/24/17 documented as of this encounter
--- OUTSIDE RECORDS SUMMARY | 2023-06-24 17:50 | External Medical Summary | Summary of Care ---
Author Name Unknown Organization [facility] Address [address] [place] [address] Phone [phone] Care Team Providers Care Licensed Insurance Agent Name Role Phone GregDhiraj lynn Primary Care Provider [phone] Reason for Visit * Reason Onset Date Comments case management 02/15/2023 Encounter Details Date Type Department Care Team Description 02/15/2023 Telephone Care Coordination [address] [place] [address] Alcira Braga, MS [address] [place] [address] case management Allergies No known active allergiesdocumented as of this encounter (statuses as of 02/15/2023) Medications Medication Sig Dispensed Refills Start Date [...] bedtime. 60 Tablet 5 10/07/2022 Active Creon 03167-11507 UNIT Oral Capsule Delayed Release Particles (Pancrelipase (Vwg-Isgo-Wwsh)) take 1 cap orally three times a [...] Strip 11 12/27/2022 Active OneTouch Delica Plus [id number] ns:Type 2 diabetes, HbA1C goal < 8% [...] 01/05/2023 Active Daily-Chriss Multivitamin Oral TabletIndications: pack gzct=860 Take one tablet daily in the morning. [...] as of this encounter (statuses as of 02/15/2023) Active Problems Problem Noted Date Alcohol-induced chronic [...] as of this encounter (statuses as of 02/15/2023) Resolved Problems Problem Noted Date Resolved Date [...] as of this encounter (statuses as of 02/15/2023) Immunizations Name Administration Dates Next Due Pneumococcal [...] * Telephone Encounter - Alcira Braga, - 02/15/2023 1:40 PM EDT 1. Follow-up Routine 2. Attempted Phone Call fourth 3. Call Outcome Left Voicemail/Message 4. Plan AC closing [facility] documented in this encounter Plan of Treatment Upcoming Encounters Date Type Specialty Care Team Description 03/10/2023 Hospital Encounter Endoscopy Camila Gentile MD [address] [place] [address] 03/10/2023 Surgery Endoscopy Camila Gentile MD [address] [place] [address] ESOPHAGOGASTRODUODENOSCOPY (EGD), FLEXIBLE, TRANSORAL, DIAGNOSTIC 04/18/2023 Office Visit Urology Jeffry Hernandez, Sukhjinder Hawk MD [address] [place] [address] [place] [address] 05/26/2023 Hospital Encounter Endoscopy Homero Mullen MD [address] [place] [address] 05/26/2023 Surgery Endoscopy Homero Mullen MD [address] [place], [place] [address] COLONOSCOPY FLEXIBLE PROXIMAL DIAGNOSTIC 07/04/2023 Office Visit Family Medicine Dhiraj Myers, DO 200 [place] [address] Scheduled Procedures Name Priority Associated Diagnoses Date/Ti [...] filedocumented as of this encounter Care Teams Licensed Insurance Agent Relationship Specialty Start Date End Date Dhiraj Myers, DO 200 [place] [address] PCP - General Family Medicine 01/24/17 documented as of this encounter
--- OUTSIDE RECORDS SUMMARY | 2023-06-24 17:50 | External Medical Summary ---
Author Name Unknown Address Unknown Organization K1H:[facility] - [address] [facility] [address] Laboratory Report Ordering Provider Test Date Status MONAE MESSINA 04/06/2023 14:39:00 Final Observation Date Value Abnormality Reference (Units ) Status Occult Blood (EIA) 04/06/2023 14:39:00 Negative N egative Final This testing was performed a s part of a [facility] Care-[employer] fulfillment initiative Performing Location [facility] - [address] [facility] [address]
--- OUTSIDE RECORDS SUMMARY | 2023-06-24 17:50 | External Medical Summary | Summary of Care ---
Author Name Unknown Organization [facility] Address [address] [place] [facility] [place] [place] [address] Phone [phone] Care Team Providers Care It Quality Analyst Name Role Phone GregDhiraj lynn Primary Care Provider [phone] Encounter Details Date Type Department Care Team Description 02/16/2023 [facility] [address] [place] [address] [facility] [address] Ayla Sidhu, SAM Medical home patient encounter* Allergies No known active allergiesdocumented as of this encounter (statuses as of 02/16/2023) Medications Medication Sig Dispensed Refills Start Date [...] bedtime. 60 Tablet 5 10/07/2022 Active Creon 51547-67946 UNIT Oral Capsule Delayed Release Particles (Pancrelipase (Zlg-Jssf-Adwg)) take 1 cap orally three times a [...] Strip 11 12/27/2022 Active OneTouch Delica Plus [id number] ns:Type 2 diabetes, HbA1C goal < 8% [...] 01/05/2023 Active Daily-Chriss Multivitamin Oral TabletIndications: pack dnis=836 Take one tablet daily in the morning. [...] as of this encounter (statuses as of 02/16/2023) Active Problems Problem Noted Date Alcohol-induced chronic [...] as of this encounter (statuses as of 02/16/2023) Resolved Problems Problem Noted Date Resolved Date [...] as of this encounter (statuses as of 02/16/2023) Immunizations Name Administration Dates Next Due Pneumococcal [...] Progress Notes * Ayla Sidhu RN - 02/16/2023 1:19 PM EDT Per chart review-pt was in the ED on 02/13/23. 1. Follow-up Post Discharge 2. Attempted Phone Call First Attempt 3. Call Outcome Left Voicemail/Message 4. Plan To attempt another outreach documented in this encounter Plan of Treatment Upcoming Encounters Date Type Specialty Care Team Description 03/10/2023 Hospital Encounter Endoscopy Camila Gentile MD [address] [place] [address] 03/10/2023 Surgery Endoscopy Camila Gentile MD [address] [place] [address] ESOPHAGOGASTRODUODENOSCOPY (EGD), FLEXIBLE, TRANSORAL, DIAGNOSTIC 04/18/2023 Office Visit Urology Jeffry Hernandez, Sukhjinder Hawk MD [address] [place] [address] [place] [address] 05/26/2023 Hospital Encounter Endoscopy Homero Mullen MD [address] [place] [address] 05/26/2023 Surgery Endoscopy Homero Mullen MD [address] [place] [address] COLONOSCOPY FLEXIBLE PROXIMAL DIAGNOSTIC 07/04/2023 Office Visit Family Medicine Dhiraj Myers, DO [address] [facility] [place] [address] Scheduled Procedures Name Priority Associated Diagnoses Date/Ti [...] documented in this encounter Care Teams It Quality Analyst Relationship Specialty Start Date End Date Dhiraj Myers, DO 200 [place] [address] PCP - General Family Medicine 01/24/17 documented as of this encounter
--- OUTSIDE RECORDS SUMMARY | 2023-06-24 17:50 | External Medical Summary | Summary of Care ---
Author Name Unknown Organization [facility] Address [address] [facility] [address] Phone [phone] Care Team Providers Care Plant Production Manager Name Role Phone GreggeorginasanketDhiraj Remedios OVERTON Primary Care Provider [phone] Encounter Details Date Type Department Care Team Description 01/31/2023 Juvenile Justice OfficerProperty Specialist Practice Lilian Meyer [place] [address] [facility] [address] Ayla Sidhu, SAM Medical home patient encounter* Allergies No known active allergiesdocumented as of this encounter (statuses as of 01/31/2023) Medications Medication Sig Dispensed Refills Start Date [...] bedtime. 60 Tablet 5 10/07/2022 Active Creon 44344-67790 UNIT Oral Capsule Delayed Release Particles (Pancrelipase (Ido-Hdrw-Squy)) take 1 cap orally three times a [...] Strip 11 12/27/2022 Active OneTouch Delica Plus [id number] ns:Type 2 diabetes, HbA1C goal < 8% [...] 01/05/2023 Active Daily-Chriss Multivitamin Oral TabletIndications: pack brxx=451 Take one tablet daily in the morning. [...] as of this encounter (statuses as of 01/31/2023) Active Problems Problem Noted Date Alcohol-induced chronic [...] as of this encounter (statuses as of 01/31/2023) Resolved Problems Problem Noted Date Resolved Date [...] as of this encounter (statuses as of 01/31/2023) Immunizations Name Administration Dates Next Due Pneumococcal [...] Progress Notes * Ayla Sidhu RN - 01/31/2023 2:55 PM EDT 1. Follow-up Post Discharge 2. Attempted Phone Call Third Attempt 3. Call Outcome Left Voicemail/Message 4. Plan Will attempt to engage in office documented in this encounter Plan of Treatment Upcoming Encounters Date Type Specialty Care Team Description 3 Office Visit Family Medicine Chari López PA-C [address] [place] [address] 3 Telemedicine Psychology Shalini Rey, VP [employer] [address] [place] [address] 3 Hospital Encounter Endoscopy Camila Gentile MD [address] [place] [address] 3 Surgery Endoscopy Camila Gentile MD [address] [place] [address] ESOPHAGOGASTRODUODENOSCOPY (EGD), FLEXIBLE, TRANSORAL, DIAGNOSTIC 3 Office Visit Urology Jeffry Hernandez, Sukhjinder Hawk MD [address] [place] [address] [place] [address] 3 Hospital Encounter Endoscopy Homero Mullen MD [address] [place] [address] 3 Surgery Endoscopy Homero Mullen MD [address] [place] [address] COLONOSCOPY FLEXIBLE PROXIMAL DIAGNOSTIC 3 Office Visit Family Medicine Dhiraj Myers DO [address] [facility], [place] [address] Scheduled Procedures Name Priority Associated Diagnoses Date/Ti [...] anus documented in this encounter Care Teams Plant Production Manager Relationship Specialty Start Date End Date Dhiraj Myers, DO 200 [place] [address] PCP - General Family Medicine 01/24/17 documented as of this encounter
--- OUTSIDE RECORDS SUMMARY | 2023-06-24 17:50 | External Medical Summary | Summary of Care ---
Author Name Unknown Organization [facility] Address [address] [facility] [facility] [place] [address] Phone [phone] Care Team Providers Care Multimedia Technician Name Role Phone Dhiraj Myers DO Primary Care Provider [phone] Reason for Visit * Reason Onset Date Comments Hospital Follow-Up 02/24/2023 Encounter Details Date Type Department Care Team Description 02/24/2023 Telephone General Internal Medicine [facility] [place] [address] [place] [address] Dhiraj Myers DO 200 [facility] [place] [address] Hospital Follow-Up Allergies No known active allergiesdocumented as of this encounter (statuses as of 05/26/2023) Medications Medication Sig Dispensed Refills Start Date End Date Status Blood Glucose Monitoring Suppl (Appdra ULTRA SYSTEM) W/DEVICE KIT Use as directed 2 times a day. 1 Kit 0 06/28/20 16 Active glipiZIDE ER 5 MG Oral Tablet Extended Release 24 Hour (glipiZIDE XL)Indications:T ype 2 diabetes, HbA1C goal < 8% ([facility]) Take 1 Tablet by mouth in the morning. 30 minutes before a meal.. 30 Tablet 5 09/21/19 23 Active hydrOXYzine Pamoate 25 MG Oral Capsule (Vistaril)Indica tions:DEVANTE (generalized anxiety disorder) Take 1 Capsule by mouth 2 times a day as needed for Anxiety. 20 Capsule 1 09/21/19 23 Active Apixaban 5 MG Oral Tablet (Eliquis) Take 1 Tablet by mouth in the morning and 1 Tablet before bedtime. 60 Tablet 5 03/03/20 23 Active Creon 72084-86372 UNIT Oral Capsule Delayed Release Particles (Pancrelipase (Ven-Mgvo-Zczd)) take 1 cap orally three times a day administer with meals and/or snacks 90 Capsule 0 12/22/19 Active Insulin Glargine Solostar 100 UNIT/ML Subcutaneous Solution Pen-injector (Lantus SoloStar)Indicat ions:Type 2 diabetes, HbA1C goal < 8% (HCC) inject subcutaneously 15 units at bedtime. 15 mL 12/28/19 Active OneTouch Verio w/Device KitIndications:T ype 2 diabetes, HbA1C goal < 8% (HCC) Use to check blood sugar four times a day 1 Kit 0 12/28/19 Active Glucose Blood In Vitro StripIndications :Type 2 diabetes, HbA1C goal < 8% (HCC) USE UP TO 4 TIMES DAILY 100 Strip 11 12/28/19 Active Alcohol Wipes 70 % PadIndications:T ype 2 diabetes, HbA1C goal < 8% (HCC) USe to help check blood sugar 100 Each 12/28/19 Active Albuterol Sulfate HFA 108 (90 Base) MCG/ACT Inhalation Aerosol Solution Inhale 2 Puffs by mouth every 6 hours as needed for Shortness of Breath. 18 g 12/28/19 Active Amitriptyline HCl 50 MG Oral Tablet (Elavil)Indicati ons:Recurrent major depressive disorder, in partial remission (HCC) Take 1 Tablet by mouth at bedtime. 30 Tablet 12/28/19 Active Pantoprazole Sodium 40 MG Oral Tablet Delayed Release (Protonix)Indica tions:Gastroesop hageal reflux disease without esophagitis,Kaplan ett's esophagus without dysplasia Take 1 Tablet by mouth in the morning. 90 Tablet 1 12/28/19 Active Folic Acid 1 MG Oral Tablet take one tablet (1 mg )orally daily in the morning 30 Tablet 0 01/06/20 Active Gabapentin 600 MG Oral Tablet (Neurontin) take 1 tablet (600 mg) orally every 12 hours for 2 days 4 Tablet 0 01/06/20 Active Daily-Chriss Multivitamin Oral TabletIndication s:pack rocr=156 Take one tablet daily in the morning. 100 Tablet 0 01/06/20 Active oxyCODONE HCl 5 MG Oral Tablet (Oxy IR) take 1 tablet (5 mg) orally every 8 hours As Needed for pain (scale score 7-10) 9 Tablet 0 01/06/20 Active B-1 100 MG Oral Tablet take 1 tablet by mouth once daily in the morning for 15 days 30 Tablet 0 01/06/20 Active Pen [place] 32G X 4 MM Use as directed. 100 Each 02/25/20 Active OneTouch Delica Plus Ndccpt28ONosjaje ions:Type 2 diabetes, HbA1C goal < 8% (HCC) Use as directed 4 times a day as needed for Hyperglycemia (high sugar). 100 Each 02/25/20 Active Insulin Pen Needle 30G X 5 MMIndications:Ty pe 2 diabetes, HbA1C goal < 8% (HCC) To be used with Lantus nightly 100 Each 3 10/08/19 22 023 Discontinued OneTouch Verio Flex System w/Device Kit USE TO CHECK BLOOD SUGAR TWO TIMES A DAY. 1 Kit 0 04/13/20 22 023 OneTouch Delica Plus Nvukcz28IFacifhr ions:Type 2 diabetes, HbA1C goal < 8% (HCC) Use as directed up to 4 times a day as needed for Hyperglycemia (high sugar). 100 Each 12/28/19 23 023 Discontinued(Re fill) documented as of this encounter (statuses as of 05/26/2023) Active Problems Problem Noted Date Alcohol-induced chronic [...] QAM, 600mg QPM, librium taper. [facility] Refused rehab. Grandmother cancer around -was close. Father committed suicide by gunshot 5mo later, patient found body ICD-10 update of inactive term Insomnia documented as of this encounter (statuses as of 05/26/2023) Resolved Problems Problem Noted Date Resolved Date [...] as of this encounter (statuses as of 05/26/2023) Immunizations Name Administration Dates Next Due Pneumococcal [...] encounter Miscellaneous Notes * Telephone Encounter - Dhiraj Myers DO - 02/24/2023 3:43 PM EDT Scripts sent for him, thanks * Telephone Encounter - Alex Jiang RN - 02/24/2023 3:28 PM EDT Patient discharged from [facility] to home after treatment for abdominal pain. While inpatient, the community educator spoke with the patient. She reports that patient reports that he his almost out of supplies and will need scripts for lancets and insulin pen needles. 1.) Pen needle 32 gauge . 2.) Lancets- not sure which ones he uses. Im guessing OneTouch Delica Lancets 33 gauge. Thank you documented in this encounter Plan of Treatment Upcoming Encounters Date Type Specialty Care Team Description 06/05/2023 Office Visit Urology Kemar Hagan MD 27 [facility] [address] [place] [address] 07/04/2023 Office Visit Family Medicine Dhiraj Myers DO [address] [facility] [place] [address] Health Maintenance Due Date Last Done Comments [...] Type 2 diabetes, HbA1C goal < 8% (HCC) Type II or unspecified type diabetes mellitus without mention of complication, not stated as uncontrolled documented in this encounter Care Teams Multimedia Technician Relationship Specialty Start Date End Date Dhiraj Myers, [address] [facility] [place] [address] PCP - General Family Medicine 01/24/17 documented as of this encounter
--- OUTSIDE RECORDS SUMMARY | 2023-06-24 17:51 | External Medical Summary | Summary of Care ---
Author Name Unknown Organization [facility] Address [address] [place] [address] Phone [phone] Care Team Providers Care Gauge Controller Name Role Phone GregDhiraj lynn Primary Care Provider [phone] Reason for Visit * Reason Comments case management Encounter Details Date Type Department Care Team Description 01/20/2023 Strategic Business Development Care Coordination [address] [place], [place] [id number] Alcira Braga, MS [address] [place] [address] Alcohol abuse, uncomplicated* Allergies No known active allergiesdocumented as of this encounter (statuses as of 01/20/2023) Medications Medication Sig Dispensed Refills Start Date [...] bedtime. 60 Tablet 5 10/07/2022 Active Creon 54076-41827 UNIT Oral Capsule Delayed Release Particles (Pancrelipase (Mfo-Xsfx-Iclh)) take 1 cap orally three times a [...] Strip 11 12/27/2022 Active OneTouch Delica Plus [id number] ns:Type 2 diabetes, HbA1C goal < 8% [...] 01/05/2023 Active Daily-Chriss Multivitamin Oral TabletIndications: pack usja=943 Take one tablet daily in the morning. [...] as of this encounter (statuses as of 01/20/2023) Active Problems Problem Noted Date Alcohol-induced chronic [...] as of this encounter (statuses as of 01/20/2023) Resolved Problems Problem Noted Date Resolved Date [...] as of this encounter (statuses as of 01/20/2023) Immunizations Name Administration Dates Next Due Pneumococcal [...] as of this encounter Progress Notes * Alcira Braga, MS - 01/20/2023 4:13 PM EDT AC received notification that pt was readmitted to [facility]. Visit to [facility] S: Raffi states that he thinks that he has an appointment coming in February for psychiatry. He said that he is refusing to take any medications. Discussed his drinking and he stated "If I can get my head straight I will be able to stop drinking." AC offered to help him with making appointments and he declined but was agreeable to AC giving him phone numbers for providers. provided him with the phone number for [facility] James[facility] [phone] and [facility] [phone]. He agreed for a follow up next week. O: Hospital visit. Raffi was lying in his bed. A: Alert and oriented x3, denies SI P: Raffi is to call to get appointments with the providers he was given contact information for. AC to follow up and assist with calls if he hasn't reached them for appointments. Bridget Braga MS Addiction Coordinator [email or web address] documented in this encounter Plan of Treatment Upcoming Encounters Date Type Specialty Care Team Description 3 Pharmacy Pharmacy Pharmacist2, [facility] [address] 3 Office Visit Family Medicine Chari López PA-C [address] [facility] [address] 3 Telemedicine Psychology Shalini Rey, MARKET RESEARCH EXECUTIVE [address] [place] [address] 3 Hospital Encounter Endoscopy Camila Gentile MD [address] [place] [address] 3 Surgery Endoscopy Camila Gentile MD [address] [place] [address] ESOPHAGOGASTRODUODENOSCOPY (EGD), FLEXIBLE, TRANSORAL, DIAGNOSTIC 3 Office Visit Urology Jeffry Hernandez, Sukhjinder Hawk MD [address] [place] [address] [place] [address] 3 Hospital Encounter Endoscopy Homero Mullen MD [address] [place] [address] 3 Surgery Endoscopy Homero Mullen MD [address] [place] [address] COLONOSCOPY FLEXIBLE PROXIMAL DIAGNOSTIC 3 Office Visit Family Medicine Dhiraj Myers, DO 200 [place] [address] Scheduled Procedures Name Priority Associated Diagnoses Date/Ti [...] 04/20/2015, Additional history exists HbA1c 04/02/2023 10/03/2022, 090 01/2022, 01/19/2021, Additional history exists Influenza Vaccine [...] as of this encounter Visit Diagnoses Diagnosis Alcohol abuse, uncomplicated- Primary Alcohol-induced chronic pancreatitis (HCC) Chronic pancreatitis Chronic pancreatitis, unspecified pancreatitis type (HCC) Rectal bleeding Hemorrhage of rectum and anus documented in this encounter Care Teams Gauge Controller Relationship Specialty Start Date End Date Dhiraj Myers, DO [address] [place] [address] PCP - General Family Medicine 01/24/17 documented as of this encounter
--- OUTSIDE RECORDS SUMMARY | 2023-06-24 17:51 | External Medical Summary | Summary of Care ---
Author Name Unknown Organization [facility] Address [address] [place] [address] Phone [phone] Care Team Providers Care Can Filling And Closing Machine Tender Name Role Phone GregDhiraj lynn Primary Care Provider [phone] Reason for Visit * Reason Onset Date Comments case management 01/18/2023 Encounter Details Date Type Department Care Team Description 01/18/2023 Telephone Care Coordination [address] [place] [address] Alcira Braga, MS [address] [place] [address] case management Allergies No known active allergiesdocumented as of this encounter (statuses as of 01/18/2023) Medications Medication Sig Dispensed Refills Start Date [...] bedtime. 60 Tablet 5 10/07/2022 Active Creon [id number] UNIT Oral Capsule Delayed Release Particles (Pancrelipase (Doe-Mrqg-Ruvu)) take 1 cap orally three times a [...] Strip 11 12/27/2022 Active OneTouch Delica Plus [id number] ns:Type 2 diabetes, HbA1C goal < 8% [...] 01/05/2023 Active Daily-Chriss Multivitamin Oral TabletIndications: pack invx=[id number] Take one tablet daily in the morning. [...] as of this encounter (statuses as of 01/18/2023) Active Problems Problem Noted Date Alcohol-induced chronic [...] as of this encounter (statuses as of 01/18/2023) Resolved Problems Problem Noted Date Resolved Date [...] as of this encounter (statuses as of 01/18/2023) Immunizations Name Administration Dates Next Due Pneumococcal [...] Notes * Telephone Encounter - Alcira Braga, MS - 01/18/2023 2:45 PM EDT 1. Follow-up Post Discharge 2. Attempted Phone Call First Attempt 3. Call Outcome Left Voicemail/Message 4. Plan To attempt another outreach documented in this encounter Plan of Treatment Upcoming Encounters Date Type Specialty Care Team Description 3 Office Visit Family Medicine Leonor Diego Maryan, DO [address] [place] [address] 3 Home Visit Family Medicine Rosio Dominguez[address] [place] [address] 3 Pharmacy Pharmacy Pharmacist2, [facility] [address] [place] [address] 3 Telemedicine Psychology Shalini Rey, [facility] [address], [place] [id number] 3 Hospital Encounter Endoscopy Camila Gentile MD [address] [place] [address] 3 Surgery Endoscopy Camila Gentile MD [address] [place] [address] ESOPHAGOGASTRODUODENOSCOPY (EGD), FLEXIBLE, TRANSORAL, DIAGNOSTIC 3 Office Visit Urology Sukhjinder Teran Jr., MD [address] [facility] [address] [place] [address] 3 Hospital Encounter Endoscopy Homero Mullen MD [address] [place] [address] 3 Surgery Endoscopy Homero Mullen MD [address] [place] [address] COLONOSCOPY FLEXIBLE PROXIMAL DIAGNOSTIC 3 Office Visit Family Medicine Dhiraj Myers, DO [address] [place] [address] Scheduled Procedures Name Priority Associated Diagnoses Date/Ti [...] Additional history exists Lipid Panel 03/29/2023 03/29/2018, 12/2 08/2015, 04/20/2015, Additional history exists HbA1c 04/02/2023 10/03/2022, [...] filedocumented as of this encounter Care Teams Can Filling And Closing Machine Tender Relationship Specialty Start Date End Date Dhiraj Myers, DO [address] [place] [address] PCP - General Family Medicine 01/24/17 documented as of this encounter
--- OUTSIDE RECORDS SUMMARY | 2023-06-24 17:51 | External Medical Summary | Summary of Care ---
Author Name Unknown Organization [facility] [address] [facility] [address] Phone [phone] Care Team Providers Care Income Tax Adjuster Name Role Phone GregDhiraj lynn Primary Care Provider [phone] Reason for Visit * Reason Comments Appointment Encounter Details Date Type Department Care Team Description 12/28/2022 Pharmacy Pharmacy, [facility] [address] [facility] [place] [address] Pharmacist2, [facility] [address] [facility] [place] [address] Type 2 diabetes, HbA1C goal < 8% (HCC)*; Type 2 diabetes mellitus with hyperglycemia (HCC) Allergies No known active allergiesdocumented as of this encounter (statuses as of 12/28/2022) Medications Medication Sig Dispensed Refills Start Date [...] before bedtime. 60 Tablet 5 10/07/2022 Active oxyCODONE HCl 5 MG Oral Tablet (Oxy IR) 5 mg orally every 8 hours As Needed for pain 8 Tablet 0 11/19/2022 Active Creon [id number] UNIT Oral Capsule Delayed Release Particles (Pancrelipase (Whq-Dnqv-Algb)) take 1 cap orally three times a [...] Strip 11 12/27/2022 Active OneTouch Delica Plus [id number] ns:Type 2 diabetes, HbA1C goal < 8% [...] the morning. 90 Tablet 1 12/27/2022 Active documented as of this encounter (statuses as of 12/28/2022) Active Problems Problem Noted Date Alcohol-induced chronic [...] as of this encounter (statuses as of 12/28/2022) Resolved Problems Problem Noted Date Resolved Date [...] as of this encounter (statuses as of 12/28/2022) Immunizations Name Administration Dates Next Due Pneumococcal [...] as of this encounter Progress Notes * JERRI Potts Tech - 12/28/2022 9:44 AM EDT Patient Phone Numbers Left message on patients answering machine to schedule [facility] appointment for DM management. [facility] message sent --no Clinic will follow up again in 4 week(s). [Attempt # 3] Thank you, Sabra Poe Global Security Architect 12/28/2022, 9:44 AM documented in this encounter Plan of Treatment Upcoming Encounters Date Type Specialty Care Team Description 01/25/2023 Pharmacy Pharmacy Pharmacist2, [facility] [address] [place] [address] 03/10/2023 Hospital Encounter Endoscopy Camila Gentile MD [address] [place], [place] [address] 03/10/2023 Surgery Endoscopy Camila Gentile MD [address] [place], [place] [address] ESOPHAGOGASTRODUODENOSCOPY (EGD), FLEXIBLE, TRANSORAL, DIAGNOSTIC 04/18/2023 Office Visit Urology Jeffry Hernandez, Sukhjinder Hawk MD [address] [place] [address] [facility] [place] [address] 05/26/2023 Hospital Encounter Endoscopy Homero Mullen MD [address] [place], [place] [address] 05/26/2023 Surgery Endoscopy Homero Mullen MD [address] [place] [address] COLONOSCOPY FLEXIBLE PROXIMAL DIAGNOSTIC 07/04/2023 Office Visit Family Medicine Dhiraj Myers, DO [address] [facility] [place] [address] Scheduled Procedures Name Priority Associated Diagnoses Date/Ti [...] 03/10/2020, Additional history exists GFR 10/03/2023 10/03/2022, 09/0 01/2022, 03/10/2020, Additional history exists DTaP,Tdap,and Td Vaccines (2 [...] mention of complication, not stated as uncontrolled Type 2 diabetes mellitus with hyperglycemia (HCC) Type II or unspecified type diabetes mellitus without mention of complication, not stated as uncontrolled Alcohol-induced chronic pancreatitis (HCC) Chronic pancreatitis Chronic pancreatitis, unspecified pancreatitis type (HCC) Rectal bleeding Hemorrhage of rectum and anus documented in this encounter Care Teams Income Tax Adjuster Relationship Specialty Start Date End Date Dhiraj Myers, DO [address] [facility] [place] [address] PCP - General Family Medicine 01/24/17 documented as of this encounter
--- OUTSIDE RECORDS SUMMARY | 2023-06-24 17:51 | External Medical Summary | Summary of Care ---
Author Name Unknown Organization [facility] Address [address] [facility] [place] [address] Phone [phone] Care Team Providers Care Managing Consultant Clinical Professor Name Role Phone Dhiraj Myers DO Primary Care Provider [phone] Reason for Visit * Reason Onset Date Comments Hospital Follow-Up Hospital Follow-Up 12/27/2022 Encounter Details Date Type Department Care Team Description 12/27/2022 Office Visit Family [facility] [address] [facility] [place] [address] Dhiraj Myers DO [address] [facility] [place] [address] Chronic pancreatitis, unspecified pancreatitis type (HCC)*; Type 2 diabetes, HbA1C goal < 8% (HCC); Alcohol-induced chronic pancreatitis (HCC); Hospital discharge follow-up; Gastroesophageal reflux disease without esophagitis; Renae's esophagus without dysplasia; Recurrent major depressive disorder, in partial remission (HCC) Allergies No known active allergiesdocumented as of this encounter (statuses as of 12/27/2022) Medications Medication Sig Dispensed Refills Start Date End Date Status Blood Glucose Monitoring Suppl (ONETOUCH ULTRA SYSTEM) W/DEVICE KIT Use as directed 2 times a day. 1 Kit 0 06/28/2016 Active Insulin Pen Needle 30G X 5 MMIndications:Typ e 2 diabetes, HbA1C goal < 8% (HCC) To be used with Lantus nightly 100 Each 3 10/07/2021 Active OneTouch Verio Flex System w/Device Kit USE TO CHECK BLOOD SUGAR TWO TIMES A DAY. 1 Kit 0 04/13/2022 04/13/20 23 Active glipiZIDE ER 5 MG Oral Tablet Extended Release 24 Hour (glipiZIDE XL)Indications:Ty pe 2 diabetes, HbA1C goal < 8% (HCC) Take 1 Tablet by mouth in the morning. 30 minutes before a meal.. 30 Tablet 5 09/21/2022 Active hydrOXYzine Pamoate 25 MG Oral Capsule (Vistaril)Indicat ions:DEVANTE (generalized anxiety disorder) Take 1 Capsule by [...] pain 8 Tablet 0 11/19/2022 Active Creon [id number] UNIT Oral Capsule Delayed Release Particles (Pancrelipase (Qtn-Kbtv-Udzl)) take 1 cap orally three times a day administer with meals and/or snacks 90 Capsule 0 12/21/2022 Active Insulin Glargine Solostar 100 UNIT/ML Subcutaneous Solution Pen-injector (Lantus SoloStar)Indicati ons:Type 2 diabetes, HbA1C goal < 8% (HCC) inject subcutaneously 15 units at bedtime. 15 mL 12/27/2022 Active OneTouch Verio w/Device KitIndications:Ty pe 2 diabetes, HbA1C goal < 8% (HCC) Use to check blood sugar four times a day 1 Kit 0 12/27/2022 Active Glucose Blood In Vitro StripIndications: Type 2 diabetes, HbA1C goal < 8% (HCC) USE UP TO 4 TIMES DAILY 100 Strip 11 12/27/2022 Active OneTouch Delica Plus [id number] ons:Type 2 diabetes, HbA1C goal < 8% (HCC) Use as directed 4 times a day as needed for Hyperglycemia (high sugar). 100 Each 12/27/2022 Active Alcohol Wipes 70 % PadIndications:Ty pe 2 diabetes, HbA1C goal < 8% (HCC) USe to help check blood sugar 100 Each 12/27/2022 Active Albuterol Sulfate HFA 108 (90 Base) MCG/ACT Inhalation Aerosol Solution Inhale 2 Puffs by mouth every 6 hours as needed for Shortness of Breath. 18 g 12/27/2022 Active Amitriptyline HCl 50 MG Oral Tablet (Elavil)Indicatio ns:Recurrent major depressive disorder, in partial remission (HCC) Take 1 Tablet by mouth at bedtime. 30 Tablet 5 12/27/2022 Active Pantoprazole Sodium 40 MG Oral Tablet Delayed Release (Protonix)Indicat ions:Gastroesopha geal reflux disease without esophagitis,[place] tt's esophagus without dysplasia Take 1 Tablet by mouth in the morning. 90 Tablet 1 12/27/2022 Active OneTouch UltraSoft LancetsIndication s:Type 2 diabetes, HbA1C goal < 8% ([facility]) Use as directed 4 times a day as needed for Hyperglycemia (high sugar). Use up to four times a day as directed 100 Each 5 10/15/2021 12/28/19 Discontinu ed(Refill) OneTouch Verio w/Device Kit Use to check blood sugar two times a day 1 Kit 0 04/13/2022 12/28/19 Discontinu ed(Refill) Glucose Blood In Vitro Strip USE UP TO 4 TIMES DAILY 100 Strip 11 04/15/2022 12/28/19 Discontinu ed(Refill) Pantoprazole Sodium 40 MG Oral Tablet Delayed Release (Protonix)Indicat ions:Gastroesopha geal reflux disease without esophagitis,[place] tt's esophagus without dysplasia Take 1 Tablet by mouth in the morning. 90 Tablet 1 09/21/2022 12/28/19 Discontinu ed(Refill) documented as of this encounter (statuses as of 12/27/2022) Active Problems Problem Noted Date Alcohol-induced chronic [...] as of this encounter (statuses as of 12/27/2022) Resolved Problems Problem Noted Date Resolved Date [...] as of this encounter (statuses as of 12/27/2022) Immunizations Name Administration Dates Next Due Pneumococcal [...] on file documented as of this encounter Last Filed Vital Signs Vital Sign Reading Time Taken Comments Blood Pressure 120/66 12/27/2022 11:12 AM EDT Pulse 91 12/27/2022 11:12 AM EDT Temperature 36.4 C (97.6 F) 12/27/2022 11:12 AM E DT Respiratory Rate 16 12/27/2022 11:12 AM EDT Oxygen Saturation 100% 12/27/2022 11:12 AM EDT Inhaled Oxygen Concentration - - Weight 84.8 kg (187 lb) 12/27/2022 11:12 AM EDT Height - - Body Mass Index 25.5 11/25/2021 10:28 AM EDT documented in this encounter Progress Notes * Dhiraj Myers, - 12/27/2022 11:23 AM EDT Subjective: Raffi Zeng is a 47 year old male. Chief Complaint Patient presents with Hospital Follow-Up Hospital Follow-Up HPI: Pt to the ER on 12/18 with upper abdominal pain. He had in in and out of the hospital frequently recently due to alcohol. He had gone to a rehab for a period. 1 week before the hospital he started drinking again. This lead to abdominal pain and rectal bleeding. His BG was 480 in the ER. His A1Cwas 10.1. They put him on Lantus for discharge, He did drop low in the hospital. His bleeding stopped after admission. They restarted his Eliquis and recommended follow-up with GI. He was started on Creon. He needs F/U blood work. He says he did not get Insulin on D/C. They did send Creon. He says he was diagnosed with asthma long ago. BAd allergy season. Feels like he is getting lacie deprssed. Has been on Paxil for awhile. He is depressed and bored. Would like to see his kids more. 2 moved to [place]. Doing better with alcohol. Drinks 3 per day. Has been on Wellbutrin and buspirone. Has been on remeron. HAs done trazodone. Wants to get in the gym. 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 PMHx, meds, and allergies reviewed Patient Active Problem List Diagnosis Code Sciatica M54.30 Esophageal reflux K21.9 GENERALIZED ANXIETY DIS F41.1 Tobacco use disorder F17.200 Chronic sinusitis J32.9 Alcohol abuse, in remission F10.11 Other allergic rhinitis J30.89 Disorder of intervertebral disc M51.9 Major depressive disorder F32.9 Insomnia G47.00 Type 2 diabetes, HbA1C goal < 8% ([facility]) E11.9 Pulmonary embolism and infarction ([facility]) I26.99 TERMINATED MEDICATION USAGE AGREEMENT [id number] ADHD, hyperactive-impulsive type F90.1 Suicide attempt ([facility]) T14.91XA Chronic pain syndrome G89.4 Bipolar depression ([facility]) F31.9 History of alcohol abuse F10.11 Other chronic pancreatitis ([facility]) K86.1 Type 2 diabetes mellitus with hyperglycemia ([facility]) E11.65 Panic disorder (episodic paroxysmal anxiety) F41.0 Renae's esophagus without dysplasia K22.70 Acute deep vein thrombosis (DVT) of calf muscle vein ([facility]) I82.469 Chest pain R07.9 Alcohol-induced chronic pancreatitis ([facility]) K86.0 Thrombocytopenia ([facility]) D69.6 Embolism and thrombosis of superficial veins of left lower extremity I82.812 Alcohol abuse, uncomplicated F10.10 Current Outpatient Medications Medication Sig Dispense Refill Blood Glucose Monitoring Suppl (ONETOUCH ULTRA SYSTEM) W/DEVICE KIT Use as directed 2 times a day. 1 Kit 0 Insulin Pen Needle 30G X 5 MM To be used with Lantus nightly 100 Each 3 OneTouch UltraSoft Lancets Use as directed 4 times a day as needed for Hyperglycemia (high sugar). Use up to four times a day as directed 100 Each 5 OneTouch Verio w/Device Kit Use to check blood sugar two times a day 1 Kit 0 Glucose Blood In Vitro Strip USE UP TO 4 TIMES DAILY 100 Strip 11 OneTouch Verio Flex System w/Device Kit USE TO CHECK BLOOD SUGAR TWO TIMES A DAY. 1 Kit 0 Pantoprazole Sodium 40 MG Oral Tablet Delayed Release (Protonix) Take 1 Tablet by mouth in the morning. 90 Tablet 1 glipiZIDE ER 5 MG Oral Tablet Extended Release 24 Hour (glipiZIDE XL) Take 1 Tablet by mouth inthe morning. 30 minutes before a meal.. 30 Tablet 5 hydrOXYzine Pamoate 25 MG Oral Capsule (Vistaril) Take 1 Capsule by mouth 2 times a day as needed for Anxiety. 20 Capsule 1 Apixaban 5 MG Oral Tablet (Eliquis) Take 1 Tablet by mouth in the morning and 1 Tablet before bedtime. 60 Tablet 5 oxyCODONE HCl 5 MG Oral Tablet (Oxy IR) 5 mg orally every 8 hours As Needed for pain 8 Tablet 0 Creon 18457-96227 UNIT Oral Capsule Delayed Release Particles (Pancrelipase (Oyi-Zshy-Taef)) take 1 cap orally three times a day administer with meals and/or snacks 90 Capsule 0 No current facility-administered medications for this visit. Review of patient's allergies indicates: No Known Allergies OBJECTIVE: BP 120/66 | Pulse 91 | Temp 36.4 C (97.6 F) (Tympanic) | Resp 16 | Wt 84.8 kg (187 lb) | SpO2 100% | BMI 25.50 kg/m | BSA 2.07 m Estimated body mass index is 25.5 kg/m as calculated from the following: Height as of 11/25/21: 1.824 m (5' 11.81"). Weight as of this encounter: 84.8 kg (187 lb). BP Readings from Last 3 Encounters: 12/27/22 120/66 09/21/22 122/70 08/05/22 112/75 Wt Readings from Last 3 Encounters: 12/27/22 84.8 kg (187 lb) 09/21/22 88.5 kg (195 lb) 04/12/22 90.3 kg (199 lb) ROS: Negative except for above PHYSICAL EXAM: General: alert, healthy and no distress Head: Normocephalic, No masses, lesions, tenderness or abnormalities ASSESSMENT/Plan Chronic pancreatitis, unspecified pancreatitis type (HCC) (Primary) - DISCH MED RECON CUR MED LIS - CBC; Future; Expected date: 12/27/2022 - COMPREHENSIVE METABOLIC PANEL; Future; Expected date: 12/27/2022 - MAGNESIUM; Future; Expected date: 12/27/2022 - PHOSPHORUS; Future; Expected date: 12/27/2022 Type 2 diabetes, HbA1C goal < 8% ([facility]) - DISCH MED RECON CUR MED LIS - HEMOGLOBIN A1C; Future; Expected date: 12/27/2022 - Insulin Glargine Solostar 100 UNIT/ML Subcutaneous Solution Pen-injector (Lantus SoloStar); inject subcutaneously 15 units at bedtime. - TalkPlusTouch Verio w/Device Kit; Use to check blood sugar four times a day - Glucose Blood In Vitro Strip; USE UP TO 4 TIMES DAILY - TalkPlusTouch Delica Plus [id number]; Use as directed 4 times a day as needed for Hyperglycemia (high sugar). - Alcohol Wipes 70 % Pad; USe to help check blood sugar Alcohol-induced chronic pancreatitis ([facility]) - DISCH MED RECON CUR MED LIS Hospital discharge follow-up - DISCH MED RECON CUR MED LIS Gastroesophageal reflux disease without esophagitis - Pantoprazole Sodium 40 MG Oral Tablet Delayed Release (Protonix); Take 1 Tablet by mouth in the morning. Renae's esophagus without dysplasia - Pantoprazole Sodium 40 MG Oral Tablet Delayed Release (Protonix); Take 1 Tablet by mouth in the morning. Recurrent major depressive disorder, in partial remission ([facility]) - Amitriptyline HCl 50 MG Oral Tablet (Elavil); Take 1 Tablet by mouth at bedtime. Other orders - Albuterol Sulfate HFA 108 (90 Base) MCG/ACT Inhalation Aerosol Solution; Inhale 2 Puffs by mouth every 6 hours as needed for Shortness of Breath. Depression leads to a lot of his drinking. He needs something to keep him physically and mentally active. Will be getting to the gym. Will be starting a new job. Try Elavil before bed at night. Start Lantus and we discussed adjusting as needed. The above was discussed and understanding was expressed. Dhiraj Myers DO documented in this encounter Nursing Notes * Mila Flynn LPN - 12/27/2022 11:09 AM EDT Raffi Zeng presents for hospital recheck. Medications & HM reviewed. States diabetes is getting out of control and would like to discuss that. Asthma is giving him a hard time right now. documented in this encounter Plan of Treatment Upcoming Encounters Date Type Specialty Care Team Description 12/28/2022 Pharmacy Pharmacy Pharmacist2, [facility] [address] [facility] [place] [address] 03/10/2023 Hospital Encounter Endoscopy Camila Gentile MD [address] [place] [address] 03/10/2023 Surgery Endoscopy Camila Gentile MD [address] [place] [address] ESOPHAGOGASTRODUODENOSCOPY (EGD), FLEXIBLE, TRANSORAL, DIAGNOSTIC 04/18/2023 Office Visit Urology Jeffry Hernandez, Sukhjinder Hawk MD [address] [place] [address] [place] [address] 05/26/2023 Hospital Encounter Endoscopy Homero Mullen MD [address] [place] [address] 05/26/2023 Surgery Endoscopy Homero Mullen MD [address] [place] [address] COLONOSCOPY FLEXIBLE PROXIMAL DIAGNOSTIC 07/04/2023 Office Visit Family Medicine Dhiraj Myers, DO 200 [place] [address] Scheduled Orders Name Type Priority Associated Diagnoses Orde r Schedule CBC Lab Routine Chronic pancreatitis, unspecified pancreatitis type (HCC) Expected: 12/27/2022 (Approximate), Expires: 12/27/2023 COMPREHENSIVE METABOLIC PANEL Lab Routine Chronic pancreatitis, unspecified pancreatitis type (HCC) Expected: 12/27/2022 (Approximate), Expires: 12/27/2023 MAGNESIUM Lab Routine Chronic pancreatitis, unspecified pancreatitis type (HCC) Expected: 12/27/2022 (Approximate), Expires: 12/27/2023 PHOSPHORUS Lab Routine Chronic pancreatitis, unspecified pancreatitis type (HCC) Expected: 12/27/2022 (Approximate), Expires: 12/27/2023 HEMOGLOBIN A1C Lab Routine Type 2 diabetes, HbA1C goal < 8% (HCC) Expected: 12/27/2022 (Approximate), Expires: 12/27/2023 Scheduled Procedures Name Priority Associated Diagnoses Date/Ti [...] 04/20/2015, Additional history exists HbA1c 04/02/2023 10/03/2022, 0 01/2022, 01/19/2021, Additional history exists Influenza Vaccine (FLU shot) (Season Ended) 2023 06/19/2014 Albumin/Creatinine Ratio 10/03/2023 023, 04/19/2021, 03/10/2020, Additional history exists GFR 10/03/2023 10/03/2022, 01/2022, 03/10/2020, Additional history exists DTaP,Tdap,and Td Vaccines (2 - Td or Tdap) 06/19/2024 06/19/2014 GARDASIL-HPV IMMUNIZATION SERIES Aged Out No longer eligible based on patient's age to complete this topic MENINGOCOCCAL (MENACTRA/MENVEO) Aged Out No longer eligible based on patient's age to complete this topic documented as of this encounter Medical Devices Not on filedocumented as of this encounter Visit Diagnoses Diagnosis Chronic pancreatitis, unspecified pancreatitis type (HCC)- Primary Type 2 diabetes, HbA1C goal < 8% (HCC) Type II or unspecified type diabetes mellitus without mention of complication, not stated as uncontrolled Alcohol-induced chronic pancreatitis (HCC) Chronic pancreatitis Hospital discharge follow-up Other follow-up examination Gastroesophageal reflux disease without esophagitis Esophageal reflux Renae's esophagus without dysplasia Renae's esophagus Recurrent major depressive disorder, in partial remission (HCC) Alcohol-induced chronic pancreatitis (HCC) Chronic pancreatitis Chronic pancreatitis, unspecified pancreatitis type (HCC) Rectal bleeding Hemorrhage of rectum and anus documented in this encounter Care Teams Managing Consultant Clinical Professor Relationship Specialty Start Date End Date Dhiraj Myers, DO [address] [place] [address] PCP - General Family Medicine 01/24/17 documented as of this encounter
--- OUTSIDE RECORDS SUMMARY | 2023-06-24 17:51 | External Medical Summary | Summary of Care ---
Author Name Unknown Organization [facility] Address [address] [facility] [address] Phone [phone] Care Team Providers Care Mixer Whipped Topping Name Role Phone GregDhiraj lynn Primary Care Provider [phone] Reason for Visit * Reason Comments [facility] Care Coordination Services Encounter Details Date Type Department Care Team Description 01/19/2023 Home Visit Care Coordination [address] [facility] [place] [address] Rosio Dominguez [address] [place] [address] Alcohol-induced chronic pancreatitis (HCC)*; Type 2 diabetes mellitus with hyperglycemia [...] bedtime. 60 Tablet 5 10/07/2022 Active Creon 10081-07951 UNIT Oral Capsule Delayed Release Particles (Pancrelipase (Iqf-Zkka-Dann)) take 1 cap orally three times a [...] Strip 11 12/27/2022 Active OneTouch Delica Plus [id number] ns:Type 2 diabetes, HbA1C goal < 8% [...] 01/05/2023 Active Daily-Chriss Multivitamin Oral TabletIndications: pack dmry=789 Take one tablet daily in the morning. [...] as of this encounter Progress Notes * Rosio Dominguez Community Health Table Tender - 01/19/2023 2:52 PM EDT Cold visit Community Health Table Tender attempted to complete cold home visit today. Community Health Table Tender: Other: made contact with patient's mother, Viki, who states "Raffi finkn the hospital again because of his sugar". Lengthy discussion with patient's mother re: her concerns/fears for her son's wellbeing. Recalls a family history of substance abuse and psychological issues. Patients father was an alcoholic, andcommitted suicide 16 years ago. Mother states patient is the one who found his father and has been having difficulties managing his addiction and mental health ever sense. Notes patient has been battling depression and alcoholism, and has attempted suicide twice in the past. Advised that the addiction coordinator and bilingual patient support caseworker have been trying to get in touch with patient - hopefully with increased support and patient's cooperation, [facility] staff can work with him to keep him out of the hospital. Mother states she is very frustrated with the doctors not being able to manage patient's diabetes. States he has been having "highs and lows". States patient is compliant with his meds -" he uses that joshua thing every night". Asked if that is his lantus insulin - mother states she believes so. Recalls that patient is very careful about what he eats - fish, chicken, vegetables. Drinks "a ton"of water and diet iced tea, although "he just can't stop drinking beer". Asking if there's something he could buy that tastes like beer, but isn't. Advised of non-alcoholic beer options. She states she will look for these for patient. Advised that patient's addiction is likely related to the affects of alcohol rather than the taste, but this may be worth a try. Mother states, "he really is a great magda, he would help anybody. He just can't get away from that beer". Recalls that patient would volunteer at a local [facility] she worked at to do activities with the residents - "he really loves the elderly people, just like I do". States patient lives at the home with her, and is her primary caregiver - cooks meals for her and prepares her medications. States, "he's called me three times today to make sure I'm doing alright". 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 States "people look down on him because of the alcohol". Reports this has caused strained family relationships, which she feels badly about. Mother was very appreciative of the visit state she will tell the patient that this MINE stopped by. MINE will make nurse bilingual patient support caseworker aware of visit outcome and ask that CM follow up with inpatient CMon plan pf care for patient. Recommend behavioral health and addiction coordination for ongoing support for patient following DC. documented in this encounter Plan of Treatment Upcoming Encounters Date Type Specialty Care Team Description 3 Pharmacy Pharmacy Pharmacist2, [facility] 200 [place] [address] 3 Telemedicine Psychology Shalini Rey, TAPE EDITOR [address] [place] [address] 3 Hospital Encounter Endoscopy Camila Gentile MD [address] [place] [address] 3 Surgery Endoscopy Camila Gentile MD [address] [place] [address] ESOPHAGOGASTRODUODENOSCOPY (EGD), FLEXIBLE, TRANSORAL, DIAGNOSTIC 3 Office Visit Urology Jeffry Hernandez, Sukhjinder Hawk MD [address] [place] [address] [place] [address] 3 Hospital Encounter Endoscopy Homero Mullen MD [address] [place] [address] 3 Surgery Endoscopy Homero Mullen MD [address] [place] [address] COLONOSCOPY FLEXIBLE PROXIMAL DIAGNOSTIC 3 Office Visit Family Medicine Dhiraj Myers, DO 200 [place] [address] Scheduled Procedures Name Priority Associated Diagnoses Date/Ti [...] as of this encounter Visit Diagnoses Diagnosis Alcohol-induced chronic pancreatitis (HCC)- Primary Chronic pancreatitis Type 2 diabetes mellitus with hyperglycemia (HCC) Type II or unspecified type diabetes mellitus without mention of complication, not stated as uncontrolled Alcohol-induced chronic pancreatitis (HCC) Chronic pancreatitis Chronic pancreatitis, unspecified pancreatitis type (HCC) Rectal bleeding Hemorrhage of rectum and anus documented in this encounter Care Teams Mixer Whipped Topping Relationship Specialty Start Date End Date Dhiraj Myers, DO [address] [place] [address] PCP - General Family Medicine 01/24/17 documented as of this encounter
--- OUTSIDE RECORDS SUMMARY | 2023-06-24 17:51 | External Medical Summary | Summary of Care ---
Author Name Unknown Organization [facility] Address [address] [facility] [address] Phone [phone] Care Team Providers Care Cotton Header Name Role Phone GregDhiraj lynn Primary Care Provider [phone] Reason for Visit * Reason Comments Appointment Encounter Details Date Type Department Care Team Description 01/25/2023 Pharmacy Pharmacy, [facility] 200 [facility] [place] [address] Pharmacist2, [facility] 200 [facility] [place] [address] Type 2 diabetes, HbA1C goal < 8% (HCC)* Allergies No known active allergiesdocumented as of [...] bedtime. 60 Tablet 5 10/07/2022 Active Creon [id number] UNIT Oral Capsule Delayed Release Particles (Pancrelipase (Bgn-Lpmj-Kgii)) take 1 cap orally three times a [...] Strip 11 12/27/2022 Active OneTouch Delica Plus [id number] ns:Type 2 diabetes, HbA1C goal < 8% [...] 01/05/2023 Active Daily-Chriss Multivitamin Oral TabletIndications: pack jybe=078 Take one tablet daily in the morning. [...] as of this encounter Progress Notes * Sabra Poe, scale manager - 01/25/2023 10:00 AM EDT Raffi Zeng has not contacted the clinic to schedule/reschedule an appointment for DM managementper referral from PCP despite multiple requests (via phone, letter and/or [facility]) to do so by our team. Raffi is discharged from the Medication Therapy Disease Management (MTDM) service at this time due to inability to connect via letter, phone and/or MyG after 4 attempts. Thank you. Sabra Poe Underground Bolting Machine Operator [facility] 01/25/2023, 10:00 AM documented in this encounter Plan of Treatment Upcoming Encounters Date Type Specialty Care Team Description 3 Office Visit Family Medicine Chari López PA-C 200 [place] [address] 3 Telemedicine Psychology Shalini Rey, SUPERVISOR [employer] [address] [place], [place] [id number] 3 Hospital Encounter Endoscopy Camila Gentile MD [address] [place] [address] 3 Surgery Endoscopy Camila Gentile MD [address] [place], [place] [address] ESOPHAGOGASTRODUODENOSCOPY (EGD), FLEXIBLE, TRANSORAL, DIAGNOSTIC 3 Office Visit Urology Sukhjinder Teran Jr., MD [address] [place] [address] [place] [address] 3 Hospital Encounter Endoscopy Homero Mullen MD [address] [place] [address] 3 Surgery Endoscopy Homero Mullen MD [address] [place] [address] COLONOSCOPY FLEXIBLE PROXIMAL DIAGNOSTIC 3 Office Visit Family Medicine Dhiraj Myers, DO [address] [place] [address] Scheduled Procedures Name Priority Associated Diagnoses Date/Ti [...] anus documented in this encounter Care Teams Cotton Header Relationship Specialty Start Date End Date Dhiraj Myers, DO [address] [place] [address] PCP - General Family Medicine 01/24/17 documented as of this encounter
--- OUTSIDE RECORDS SUMMARY | 2023-06-24 17:51 | External Medical Summary | Summary of Care ---
Author Name Unknown Organization [facility] Address [address] [facility] [address] Phone [phone] Care Team Providers Care Preparation Operator Name Role Phone GregDhiraj lynn Primary Care Provider [phone] Encounter Details Date Type Department Care Team Description 01/05/2023 Broach OperatorChain Machine Operator Practice [address] [place] [address] [facility] [address] Ayla Sidhu, [facility] patient encounter* Allergies No known active allergiesdocumented as of this encounter (statuses as of 01/05/2023) Medications Medication Sig Dispensed Refills Start Date [...] pain 8 Tablet 0 11/19/2022 Active Creon [id number] UNIT Oral Capsule Delayed Release Particles (Pancrelipase (Ghq-Ovaj-Crpn)) take 1 cap orally three times a [...] Strip 11 12/27/2022 Active OneTouch Delica Plus [id number] ns:Type 2 diabetes, HbA1C goal < 8% (HCC) Use as directed up to 4 times a day as needed for Hyperglycemia (high sugar). 100 Each 12/27/2022 Active Alcohol Wipes 70 % PadIndications:Typ e 2 diabetes, HbA1C goal < 8% (HCC) USe to help check blood sugar 100 Each 5 12/27/2022 Active Albuterol Sulfate HFA 108 (90 [...] as of this encounter (statuses as of 01/05/2023) Active Problems Problem Noted Date Alcohol-induced chronic [...] & BSU. Refused rehab. Grandmother cancer around 07-was close. Father committed suicide by gunshot 5mo later, patient found body ICD-10 update of inactive term Insomnia documented as of this encounter (statuses as of 01/05/2023) Resolved Problems Problem Noted Date Resolved Date [...] as of this encounter (statuses as of 01/05/2023) Immunizations Name Administration Dates Next Due Pneumococcal [...] Progress Notes * Ayla Sidhu RN - 01/05/2023 11:06 AM EDT Call for [facility] comprehensive/Hosp discharge follow up: 1. Follow-up Post Discharge 2. Attempted Phone Call Second Attempt 3. Call Outcome Left Voicemail/Message 4. Plan To attempt another outreach documented in this encounter Plan of Treatment Upcoming Encounters Date Type Specialty Care Team Description 01/12/2023 Office Visit Family Medicine Brandie Galvez DO [address] [place] [address] 01/25/2023 Pharmacy Pharmacy Pharmacist2, [facility] [address] [place] [address] [address] 03/10/2023 Hospital Encounter Endoscopy Camila Gentile MD [address] [place] [address] 03/10/2023 Surgery Endoscopy Camila Gentile MD [address] [place] [address] ESOPHAGOGASTRODUODENOSCOPY (EGD), FLEXIBLE, TRANSORAL, DIAGNOSTIC 04/18/2023 Office Visit Urology Jeffry Hernandez, Sukhjinder Hawk MD [address] [place] [address] [place] [id number] 05/26/2023 Hospital Encounter Endoscopy Homero Mullen MD [address] [place] [address] 05/26/2023 Surgery Endoscopy Homero Mullen MD [address] [place] [address] COLONOSCOPY FLEXIBLE PROXIMAL DIAGNOSTIC 07/04/2023 Office Visit Family Medicine Dhiraj Myers, DO 200 [place] [address] Scheduled Procedures Name Priority Associated Diagnoses Date/Ti [...] 03/10/2020, Additional history exists GFR 10/03/2023 10/03/2022, 090 01/2022, 03/10/2020, Additional history exists DTaP,Tdap,and Td [...] anus documented in this encounter Care Teams Preparation Operator Relationship Specialty Start Date End Date Dhiraj Myers, DO 200 [facility] [place] [address] PCP - General Family Medicine 01/24/17 documented as of this encounter
--- OUTSIDE RECORDS SUMMARY | 2023-06-24 17:51 | External Medical Summary | Summary of Care ---
Author Name Unknown Organization [facility] Address [address] [facility] [place] [address] Phone [phone] Care Team Providers Care Surveying Or Spatial Science Technician Name Role Phone GregDhiraj lynn Primary Care Provider [phone] Reason for Visit * Reason Comments [facility] Care Coordination Services Encounter Details Date Type Department Care Team Description 12/26/2022 Home Visit Care Coordination [address] [facility] [place] [address] Rosio Dominguez [address] [place] [address] Type 2 diabetes mellitus with hyperglycemia (HCC)*; Thrombocytopenia (HCC); Embolism and thrombosis of superficial veins of left lower extremity; Pulmonary embolism and infarction (HCC) Allergies No known active allergiesdocumented as of this encounter (statuses as of 12/26/2022) Medications Medication Sig Dispensed Refills Start Date End Date Status Blood Glucose Monitoring Suppl (ONETOUCH ULTRA SYSTEM) W/DEVICE KIT Use as directed 2 times a day. 1 Kit 0 06/28/2016 Active Insulin Pen Needle 30G X 5 MMIndications:Typ e 2 diabetes, HbA1C goal < 8% (HCC) To be used with Lantus nightly 100 Each 3 10/07/2021 Active OneTouch UltraSoft LancetsIndication s:Type 2 diabetes, HbA1C goal < 8% (HCC) Use as directed 4 times a day as needed for Hyperglycemia (high sugar). Use up to four times a day as directed 100 Each 5 10/15/2021 Active OneTouch Verio w/Device Kit Use to check blood sugar two times a day 1 Kit 0 04/13/2022 Active Glucose Blood In Vitro Strip USE UP TO 4 TIMES DAILY 100 Strip 11 04/15/2022 04/15/2023 Active Intepat IP Services Flex System w/Device Kit USE TO CHECK BLOOD SUGAR TWO TIMES A DAY. 1 Kit 0 04/13/2022 04/13/2023 Active Pantoprazole Sodium 40 MG Oral Tablet Delayed Release (Protonix)Indicat ions:Gastroesopha geal reflux disease without esophagitis,[place] tt's esophagus without dysplasia Take 1 Tablet by mouth in the morning. 90 Tablet 1 09/21/2022 Active glipiZIDE ER 5 MG Oral Tablet Extended Release 24 Hour (glipiZIDE XL)Indications:Ty pe 2 diabetes, HbA1C goal < 8% ([facility]) Take 1 Tablet by mouth in the [...] pain 8 Tablet 0 11/19/2022 Active Creon [id number] UNIT Oral Capsule Delayed Release Particles (Pancrelipase (Wyy-Tjyg-Dlnp)) take 1 cap orally three times a day administer with meals and/or snacks 90 Capsule 0 12/21/2022 Active documented as of this encounter (statuses as of 12/26/2022) Active Problems Problem Noted Date Alcohol-induced chronic [...] as of this encounter (statuses as of 12/26/2022) Resolved Problems Problem Noted Date Resolved Date [...] as of this encounter (statuses as of 12/26/2022) Immunizations Name Administration Dates Next Due Pneumococcal [...] as of this encounter Progress Notes * Kristie Mcpherson Health Web Machine Tender - 12/26/2022 12:42 PM EDT Cold visit Community [facility] Web Machine Tender attempted to complete cold home visit today. Community [facility] Web Machine Tender: Placed phone call to patient, left voicemail: with MINE CB info Left doorperson or luggage porter pamphlet for patient Other: SAM GOEL name/contact info written on doorperson or luggage porter documented in this encounter Plan of Treatment Upcoming Encounters Date Type Specialty Care Team Description 12/27/2022 Office Visit Family Medicine Dhiraj Myers, DO 200 [facility] [place] [address] 12/28/2022 Pharmacy Pharmacy Pharmacist2, [facility] 200 [facility] [place] [address] 03/10/2023 Hospital Encounter Endoscopy Camila Gentile MD [address] [place] [address] 03/10/2023 Surgery Endoscopy Camila Gentile MD [address] [place] [address] ESOPHAGOGASTRODUODENOSCOPY (EGD), FLEXIBLE, TRANSORAL, DIAGNOSTIC 04/18/2023 Office Visit Urology Jeffry Hernandez, Sukhjinder Hawk MD [address] [place] [address] [place] [address] 05/26/2023 Hospital Encounter Endoscopy Homero Mullen MD [address] [place] [address] 05/26/2023 Surgery Endoscopy Homero Mullen MD [address] [place] [address] COLONOSCOPY FLEXIBLE PROXIMAL DIAGNOSTIC Scheduled Procedures Name Priority Associated Diagnoses Date/Ti [...] 03/29/2023 03/29/2018, 07/08, 04/20/2015, Additional history exists HgA1C 04/02/2023 10/03/2022, 09/0 01/2022, 01/19/2021, Additional history exists Influenza Vaccine (FLU shot) (Season Ended) 2023 06/19/2014 Albumin/Creatinine Ratio 10/03/2023 023, 04/19/2021, 03/10/2020, Additional history exists GFR - Renal Function 10/03/2023 10/03/2022, 04/12/2022, 03/10/2020, Additional history exists DTaP,Tdap,and Td Vaccines [...] this encounter Visit Diagnoses Diagnosis Type 2 diabetes mellitus with hyperglycemia (HCC)- Primary Type II or unspecified type diabetes mellitus without mention of complication, not stated as uncontrolled Thrombocytopenia (HCC) Thrombocytopenia, unspecified Embolism and thrombosis of superficial veins of left lower extremity Pulmonary embolism and infarction (HCC) Other pulmonary embolism and infarction Alcohol-induced chronic pancreatitis (HCC) Chronic pancreatitis Chronic pancreatitis, unspecified pancreatitis type (HCC) Rectal bleeding Hemorrhage of rectum and anus documented in this encounter Care Teams Surveying Or Spatial Science Technician Relationship Specialty Start Date End Date Dhiraj Myers, DO 200 [place] [address] PCP - General Family Medicine 01/24/17 documented as of this encounter
--- OUTSIDE RECORDS SUMMARY | 2023-06-24 17:51 | External Medical Summary | Summary of Care ---
Author Name Unknown Organization [facility] Address [address] [facility] [address] Phone [phone] Care Team Providers Care Fashion Photographer Name Role Phone GreggeorginasanketDhiraj Remedios [place] Primary Care Provider [phone] Encounter Details Date Type Department Care Team Description 01/11/2023 Shoe AssociateCanvas Worker Apprentice Practice Lilian Meyer [place] 200 [facility] [address] Ayla Sidhu, [facility] Medical home patient encounter* Allergies No known active allergiesdocumented as of this encounter (statuses as of 01/11/2023) Medications Medication Sig Dispensed Refills Start Date [...] bedtime. 60 Tablet 5 10/07/2022 Active Creon [id number] UNIT Oral Capsule Delayed Release Particles (Pancrelipase (Chf-Nlxx-Bddo)) take 1 cap orally three times a [...] Strip 11 12/27/2022 Active OneTouch Delica Plus [id number] ns:Type 2 diabetes, HbA1C goal < 8% [...] 01/05/2023 Active Daily-Chriss Multivitamin Oral TabletIndications: pack uxyr=163 Take one tablet daily in the morning. [...] as of this encounter (statuses as of 01/11/2023) Active Problems Problem Noted Date Alcohol-induced chronic [...] as of this encounter (statuses as of 01/11/2023) Resolved Problems Problem Noted Date Resolved Date [...] as of this encounter (statuses as of 01/11/2023) Immunizations Name Administration Dates Next Due Pneumococcal [...] Progress Notes * Ayla Sidhu RN - 01/11/2023 12:09 PM EDT 1. Follow-up Post Discharge 2. Attempted Phone Call Third Attempt 3. Call Outcome Left Voicemail/Message 4. Plan Sent to [facility] for cold call documented in this encounter Plan of Treatment Upcoming Encounters Date Type Specialty Care Team Description 01/19/2023 Office Visit Family Medicine Brandie Galvez, [address] [place] [address] [address] 01/19/2023 Home Visit Family Medicine Rosio Dominguez[address] [place] [address] 01/25/2023 Pharmacy Pharmacy Pharmacist2, [facility] [address] [place] [address] [address] 03/10/2023 Hospital Encounter Endoscopy Camila Gentile MD [address] [place] [address] 03/10/2023 Surgery Endoscopy Camila Gentile MD [address] [place] [address] ESOPHAGOGASTRODUODENOSCOPY (EGD), FLEXIBLE, TRANSORAL, DIAGNOSTIC 04/18/2023 Office Visit Urology Jeffry Hernandez, Sukhjinder Hawk MD [address] [place] [address] [facility] [address] 05/26/2023 Hospital Encounter Endoscopy Homero Mullen MD [address] [place] [address] 05/26/2023 Surgery Endoscopy Homero Mullen MD [address] [place] [address] COLONOSCOPY FLEXIBLE PROXIMAL DIAGNOSTIC 07/04/2023 Office Visit Family Medicine Dhiraj Myers, DO [address] [place] [address] [address] Scheduled Procedures Name Priority Associated Diagnoses Date/Ti [...] history exists GFR 10/03/2023 10/03/2022, 090 01/2022, 09/09/2021, Additional history exists DTaP,Tdap,and Td Vaccines (2 [...] anus documented in this encounter Care Teams Fashion Photographer Relationship Specialty Start Date End Date Dhiraj Myers, DO 200 [place] [address] PCP - General Family Medicine 01/24/17 documented as of this encounter
--- OUTSIDE RECORDS SUMMARY | 2023-06-24 17:51 | External Medical Summary | Summary of Care ---
Author Name Unknown Organization [facility] Address [address] [facility] [address] Phone [phone] Care Team Providers Care Ethylbenzene Cracking Supervisor Name Role Phone GregDhiraj lynn Remedios [place] Primary Care Provider [phone] Encounter Details Date Type Department Care Team Description 01/03/2023 Nickel PlaterOffice Services Coordinator Practice Lilian Meyer [place] 200 [facility] [address] Ayla Sidhu, [facility] Medical home patient encounter* Allergies No known active allergiesdocumented as of this encounter (statuses as of 01/03/2023) Medications Medication Sig Dispensed Refills Start Date [...] pain 8 Tablet 0 11/19/2022 Active Creon [id number] UNIT Oral Capsule Delayed Release Particles (Pancrelipase (Eyr-Sdgw-Fztx)) take 1 cap orally three times a [...] Strip 11 12/27/2022 Active OneTouch Delica Plus [id number] ns:Type 2 diabetes, HbA1C goal < 8% [...] as of this encounter (statuses as of 01/03/2023) Active Problems Problem Noted Date Alcohol-induced chronic [...] as of this encounter (statuses as of 01/03/2023) Resolved Problems Problem Noted Date Resolved Date [...] as of this encounter (statuses as of 01/03/2023) Immunizations Name Administration Dates Next Due Pneumococcal [...] Progress Notes * Ayla Sidhu RN - 01/03/2023 11:26 AM EDT 1. Follow-up Post Discharge 2. Attempted Phone Call Second Attempt 3. Call Outcome Unable to Leave Message 4. Plan To attempt another outreach documented in this encounter Plan of Treatment Upcoming Encounters Date Type Specialty Care Team Description 01/25/2023 Pharmacy Pharmacy Pharmacist2, [facility] 200 [facility] [place] [address] 03/10/2023 Hospital Encounter Endoscopy Camila Gentile MD [address] [place] [address] 03/10/2023 Surgery Endoscopy Camila Gentile MD [address] [place] [address] ESOPHAGOGASTRODUODENOSCOPY (EGD), FLEXIBLE, TRANSORAL, DIAGNOSTIC 04/18/2023 Office Visit Urology Jeffry Hernandez, Sukhjinder Hawk MD [address] [place] [address] [place] [address] 05/26/2023 Hospital Encounter Endoscopy Homero Mullen MD [address] [place] [address] 05/26/2023 Surgery Endoscopy Homero Mullen MD [address] [place] [address] COLONOSCOPY FLEXIBLE PROXIMAL DIAGNOSTIC 07/04/2023 Office Visit Family Medicine Dhiraj Myers, DO 200 [place] [address] Scheduled Procedures Name Priority Associated Diagnoses Date/Ti [...] anus documented in this encounter Care Teams Ethylbenzene Cracking Supervisor Relationship Specialty Start Date End Date Dhiraj Myers, DO [address] [place] [address] PCP - General Family Medicine 01/24/17 documented as of this encounter
--- OUTSIDE RECORDS SUMMARY | 2023-06-24 17:51 | External Medical Summary | Summary of Care ---
Author Name Unknown Organization [facility] Address [address] [place] [address] Phone [phone] Care Team Providers Care Licensed Funeral Director And Embalmer Name Role Phone GregDhiraj lynn Primary Care Provider [phone] Reason for Visit * Reason Onset Date Comments case management 01/25/2023 Encounter Details Date Type Department Care Team Description 01/25/2023 Telephone Care Coordination [address] [place] [address] Alcira Braga, MS [address] [place] [address] case management Allergies No known [...] bedtime. 60 Tablet 5 10/07/2022 Active Creon 20406-55372 UNIT Oral Capsule Delayed Release Particles (Pancrelipase (Qlb-Fcze-Rakb)) take 1 cap orally three times a [...] Strip 11 12/27/2022 Active OneTouch Delica Plus [id number] ns:Type 2 diabetes, HbA1C goal < 8% [...] 01/05/2023 Active Daily-Chriss Multivitamin Oral TabletIndications: pack comk=135 Take one tablet daily in the morning. [...] Miscellaneous Notes * Telephone Encounter - Alcira Braga MS - 01/25/2023 9:38 AM EDT 1. Follow-up Routine 2. Attempted Phone Call Second Attempt 3. Call Outcome Left Voicemail/Message 4. Plan To attempt another outreach documented in this encounter Plan of Treatment Upcoming Encounters Date Type Specialty Care Team Description 3 Pharmacy Pharmacy Pharmacist2, [facility] [address] [place] [address] 3 Office Visit Family Medicine Chari López PA-C [address] [place] [address] 3 Telemedicine Psychology Shalini Rey, SCIENCE CENTER DISPLAY BUILDER [address] [place] [address] 3 Hospital Encounter Endoscopy Camila Gentile MD [address] [place] [address] 3 Surgery Endoscopy Camila Gentile MD [address] [place] [address] ESOPHAGOGASTRODUODENOSCOPY (EGD), FLEXIBLE, TRANSORAL, DIAGNOSTIC 3 Office Visit Urology Jeffry Hernandez, Sukhjinder Hawk MD [address] [place] [address] 3 Hospital Encounter Endoscopy Homero Mullen MD [address] [place] [address] 3 Surgery Endoscopy Homero Mullen MD [address] [place] [address] COLONOSCOPY FLEXIBLE PROXIMAL DIAGNOSTIC 3 Office Visit Family Medicine Dhiraj Myers, DO [address] [place] [address] Scheduled Procedures Name Priority Associated Diagnoses Date/Ti [...] as of this encounter Care Teams Licensed Funeral Director And Embalmer Relationship Specialty Start Date End Date Dhiraj Myers, DO [address] [place] [address] PCP - General Family Medicine 01/24/17 documented as of this encounter
--- OUTSIDE RECORDS SUMMARY | 2023-06-24 17:51 | External Medical Summary | Summary of Care ---
Author Name Unknown Organization [facility] Address [address] [facility] [place] [address] Phone [phone] Care Team Providers Care Plant Operations Engineer Name Role Phone GregDhiraj lynn Primary Care Provider [phone] Reason for Visit * Reason Comments case management Encounter Details Date Type Department Care Team Description 12/26/2022 Mixer TenderTire Design Engineer Internal Medicine Lilian [place] [address] [facility] [address] [place] [address] Luzmaria Camacho RN Alcohol-induced chronic pancreatitis (HCC)*; Type 2 diabetes, HbA1C goal < 8% (HCC); Medical home patient encounter Allergies No known active allergiesdocumented as of [...] DAILY 100 Strip 11 04/15/2022 04/15/2023 Active OneTouch Verio Flex System w/Device Kit USE TO CHECK BLOOD SUGAR TWO TIMES A DAY. 1 Kit 0 04/13/2022 04/13/2023 Active Pantoprazole Sodium 40 MG Oral Tablet Delayed Release (Protonix)Indicat ions:Gastroesopha geal reflux disease without esophagitis,[place] tt's esophagus without dysplasia Take 1 Tablet [...] pain 8 Tablet 0 11/19/2022 Active Creon 68028-43429 UNIT Oral Capsule Delayed Release Particles (Pancrelipase (Sux-Aauy-Fzhl)) take 1 cap orally three times a [...] QAM, 600mg QPM, librium taper. Referred to [facility]. Refused rehab. Grandmother cancer [...] as of this encounter Progress Notes * Luzmaria Camacho RN - 12/26/2022 9:37 AM EDT 1. Follow-up Post Discharge 2. Attempted Phone Call First Attempt 3. Call Outcome Left Voicemail/Message 4. Plan To attempt another outreach documented in this encounter Plan of Treatment Upcoming Encounters Date Type Specialty Care Team Description 12/27/2022 Office Visit Family Medicine Dhiraj Myers, DO [address] [facility] [address] [facility] [address] 12/27/2022 Home Visit Family Medicine Rosio Dominguez, [address] [place] [address] 12/28/2022 Pharmacy Pharmacy Pharmacist2, [facility] [address] [facility] [place] [address] 03/10/2023 Hospital Encounter Endoscopy Camila Gentile MD [address] [place] [address] 03/10/2023 Surgery Endoscopy Camila Gentile MD [address] [place] [address] ESOPHAGOGASTRODUODENOSCOPY (EGD), FLEXIBLE, TRANSORAL, DIAGNOSTIC 04/18/2023 Office Visit Urology Jeffry Hernandez, Sukhjinder Hawk MD [address] [facility] [place] [place] [address] 05/26/2023 Hospital Encounter Endoscopy Homero Mullen MD [address] [place] [address] 05/26/2023 Surgery Endoscopy Homero Mullen MD [address] [place] [address] COLONOSCOPY FLEXIBLE PROXIMAL DIAGNOSTIC Scheduled Procedures Name [...] 03/29/2018, 12/2 08/2015, 04/20/2015, Additional history exists HgA1C 04/02/2023 10/03/2022, [...] pancreatitis (HCC)- Primary Chronic pancreatitis Type 2 diabetes, HbA1C goal < 8% (HCC) Type II or unspecified type diabetes mellitus without mention of complication, not stated as uncontrolled Medical home patient encounter Other specified examination Alcohol-induced chronic pancreatitis (HCC) Chronic pancreatitis Chronic pancreatitis, unspecified pancreatitis type (HCC) Rectal bleeding Hemorrhage of rectum and anus documented in this encounter Care Teams Plant Operations Engineer Relationship Specialty Start Date End Date Dhiraj Myers, DO [address] [place] [address] PCP - General Family Medicine 01/24/17 documented as of this encounter
[2023-06-24] MEDS ORDERED: LANTUS PER UNIT CHARGE SQ SCH (21:15)
[2023-06-24 23:17] VITALS: RESP 18
[2023-06-24] MEDS: LANTUS PER UNIT CHARGE SQ SCH (23:57)
[2023-06-25] MEDS: oxyCODONE HCL IR 5 MG TAB (IMMEDIATE RELEASE) PO PRN ×3 (00:38→10:09)
[2023-06-25 02:59] VITALS: O2SAT 98
[2023-06-25] MEDS: NSS + 20MEQ KCL 20 MEQ/1,000 ML BAG IV SCH (03:06)
[2023-06-25] MEDS: HYDROmorphone INJ 0.5 MG/0.5 ML SYR IV PRN ×2 (03:06→09:03)
[2023-06-25 05:52] LABS: Basophils # (auto) 0.04 K/uL (0.00-0.20); Eosinophils # (auto) 0.45 K/uL (0.00-0.50); Eosinophils % (auto) 11.2 %; Hematocrit (blood only) 46.3 % (42.0-52.0); Hemoglobin 16.4 g/dl (14.0-18.0); Lymphocytes # (auto) 1.31 K/uL (1.20-3.40); Lymphocytes % (auto) 32.5 %; Mean Corpuscular Hemoglobin 32.5 pg (25.0-34.0); Mean Corpuscular Hgb Conc 35.4 g/dL (32.0-36.0); Mean Corpuscular Volume 91.7 fL (80.0-100.0); Mean Platelet Volume 9.6 fL (9.4-12.4); Monocytes # (auto) 0.35 K/uL (0.11-0.59); Monocytes % (auto) 8.7 %; Neutrophils # (auto) 1.88 K/uL (1.40-6.50); Neutrophils % (auto) 46.6 %; Platelet Count 128 K/uL (130-400); RDW Coefficient of Variation 11.5 % (11.5-14.5); RDW Standard Deviation 38.7 fL (36.4-46.3); Red Blood Count 5.05 M/uL (4.70-6.10); White Blood Count 4.03 K/ul (4.8-10.8)
[2023-06-25 06:00] LABS: Albumin Globulin Ratio 1.3 (0.9-2); BUN Creatinine Ratio 3.4 (10-20); Bilirubin,Total 1.1 mg/dl (0.2-1.0); Calcium 10.2 mg/dl (8.6-10.3); Creatinine Clr Calc Pharmacy 112.7 ml/min; Est GFR (African American) 117.5 ml/min; Est GFR (Non-African American) 101.3 ml/min; Globulin 3.1 gm/dl (2.5-4.0); Magnesium 1.7 mg/dl (1.7-2.4); Phosphorus 3.2 mg/dl (2.5-4.9); Potassium 3.7 mmol/L (3.5-5.1); Total Protein 7.1 gm/dl (6.0-8.3)
[2023-06-25] MEDS: APIXABAN 5 MG TABLET PO SCH (07:45)
[2023-06-25] MEDS: PANTOprazole 40 MG TAB PO SCH (07:45)
[2023-06-25 07:47] LABS: Estimated Average Glucose 243 mg/dl; Hemoglobin A1C 10.1 % (4.5-5.6)
[2023-06-25 07:49] VITALS: TEMP 98.1
[2023-06-25] MEDS: FOLIC ACID 1 MG TAB PO SCH (07:50)
[2023-06-25] MEDS: MULTIVITAMIN TAB PO SCH (07:50)
[2023-06-25] MEDS: THIAMINE HCL 100 MG TAB PO SCH (07:51)
[2023-06-25] MEDS ORDERED: PANTOprazole 40 MG TAB PO SCH (09:00)
[2023-06-25] MEDS: INSULIN ASPART PER UNIT CHARGE SC SCH (09:01)
[2023-06-25] MEDS: ONDANSETRON INJ 2 MG/ML 2 ML VIAL IV PRN (11:26)
[2023-06-25 12:35] VITALS: BP 111/74; PULSE 73
--- NOTE | 2023-06-25 12:35 | Discharge Summary ---
Discharge Summary Date of Service June 25, 2023 Notes For Next Care Provider General surgery follow up in [address] Calloway and close PCP follow up recommended Outpatient Urology follow up recommended for perinephric stranding noted without signs of infection and prostate calcifications on imaging HgbA1c >10, PCP followup for med compliance/optimization recommended On once daily Eliquis (patient noncompliant with recommended twice daily dosing), PCP followup for med compliance/optimization recommended Medication Changes From Visit Discharged with Bentyl 10mg TID PRN for abdominal pain Admission HPI Per Admitting Provider History is obtained from the patient and records. 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 Last confinement February 2023 for chronic pancreatitis and alcohol abuse. Has not seen PCP on follow-up since discharge. Patient started drinking again 4 days ago. Subsequent achy lower abdominal pain going to the chest with bilious emesis. Chronic watery stools as per patient. IV insulin administered at the ER for BSG 300s. MEDICAL HISTORY: As above. SURGERIES: Appendectomy, cholecystectomy, vascular device placement, back surgery FAMILY HISTORY: mood disorder. Alcoholism, heart disease. 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 Admission Exam Per Admitting Provider GENERAL: Slightly uncomfortable, looks older than stated age, no respiratory distress SKIN: Normal color, warm HEENT: Alopecia, pink palpebral conjunctivae, no ptosis, dry buccal mucosa NECK : Supple, short neck, no tenderness CHEST : CTA, no tenderness HEART : Tachycardic, no obvious murmurs ABDOMEN: Some distention, epigastric tenderness EXTREMITIES : No LE swelling, no LE tenderness NEUROLOGIC : Coherent, no facial asymmetry, no other gross focality Principal Dx & Hospital Course #1 = Principal Diagnosis (1) Hyponatremia: Pt is a 47yoM with PMHx significant for alcohol abuse, chronic pancreatitis, GERD/Renae's esophagus, ADD/mood disorder, DM2 insulin requiring, hx PE/recurrent DVT on Eliquis, history of chronic pain, hx narcotic abuse as per records/terminated medication agreement admitted with abdominal pain and concern for intussusception. Abdominal pain Intussusception Chronic pancreatitis Presented with abdominal pain and episodes of emesis, watery stools Per admitting provider, pt resumed alcohol use 4 days prior to arrival CT abd/pelvis on admission noting possible intussusception, chronic pancreatitis, possible enteritis Surgery consult Re: Abnormal CT, possible intussusception -recommended bowel rest -General surgery ordered repeat CT abd/pelvis on 06/23 with no intussusception, pt would like to try eating noting improved abd pain Diet was slowly advanced, pt requested IV Dilaudid for abdominal pain treatment which he received. Stated on 06/25 that his abdominal pain had improved significantly and that he "can deal with the pain at home". Discharged home with dicyclomine 10mg TID PRN for abdominal pain and close PCP and General Surgery follow up. General Surgery, Dr. Calloway requesting followup in 2 weeks with him. Perinephric stranding Prostate Calcifications Noted on CT abd/pelvis imaging UA unremarkable, no signs of infection, WBC not elevated at any time Outpatient Urology follow up recommended Hyponatremia In setting of alcohol abuse, beer potomania 126 on admission IV hydration Improved to 135 on discharge PCP follow up for continued monitoring hx chronic alcoholic pancreatitis As above history of chronic pain hx narcotic abuse, as per records/terminated medication agreement Pt requesting Dilaudid specifically while hospitalized, states oxycodone does not work for him Analgesia, judicious narcotic use given history drug abuse as per records PCP follow up, consider pain management referral Hx of alcohol abuse As above DT precautions, AWSS protocol history GERD/Renae's esophagus on PPI DM2 insulin requiring suboptimal control as of recent hemoglobin A1c of 10.1 basal bolus insulin, ISS BG goal 110-140, carb count coverage while hospitalized Does not appear to be on medications at home at this time, though EPIC chart review shows he is prescribed insulin and glipizide Medication use encouraged, PCP follow up. history of PE/DVT on once daily Eliquis (patient noncompliant with recommended twice daily dosing) Heparin drip d/c, Eliquis resumed Encourage use at prescribed dose ADD/mood disorder Stable Discharge Exam General: Alert, oriented. No acute distress Skin: No noted rashes or bruises Psych: Appropriate mood and affect Neuro: No gross deficits HEENT: NC/AT Chest: Nontender to palpation. CV: RRR, Normal s1, s2. No murmurs appreciated Resp: Breath sounds clear bilaterally, no increased effort of breathing. Abdomen: Soft, nontender on discharge Extremities: No edema in lower extremities bilaterally. Updated Medication List Medication Instructions Recorded Confirmed Type pantoprazole 40 mg tablet,delayed 40 mg PO DAILY 01/03/23 06/22/23 History release apixaban 5 mg tablet (Eliquis) 5 mg PO DAILY 06/23/23 06/23/23 History dicyclomine 10 mg capsule 10 mg PO TID PRN abdominal pain 06/25/23 Rx #30 caps Hospital Stay Data Consultations 06/23/23 04:32 ED Decision to Admit Stat 06/23/23 06:46 Consult General Surgery Routine Diagnostic Imagining Performed 06/22/23 23:44 CT abd pelvis IV con only Stat 06/23/23 11:12 CT Abd and Pelvis [CT abd pelvis oral con only] Routine Abdomen/Pelvis CT 06/22/23 23:44 CR Exam(s): CT ABDOMEN + PELVIS With Contrast IV Amt: 91 ml optiray 320 EXAM: CT Abdomen and Pelvis With Intravenous Contrast CLINICAL HISTORY: Reason for exam: pancreatitis. TECHNIQUE: Axial computed tomography images of the abdomen and pelvis with intravenous contrast. CTDI is 20.09 mGy and DLP is 1008.11 mGy-cm. Automated exposure control was utilized for the study. A dose lowering technique was utilized adhering to the principles of ALARA. CONTRAST: Patient received 91 ml optiray 320 of IV contrast COMPARISON: CT Abdomen Pelvis dated may 09 2023 FINDINGS: Lung bases: Unremarkable. No mass. No consolidation. ABDOMEN: Liver: Unremarkable. No mass. Gallbladder and bile ducts: Cholecystectomy changes. No evidence of biliary dilatation. Pancreas: Diffuse pancreatic parenchymal calcifications which likely relate to chronic pancreatitis. Associated with this is pancreatic ductal dilatation measuring up to 6 mm. No gross findings to suggest acute pancreatitis. Consider correlation with lipase if there is further concern. Spleen: Unremarkable. No splenomegaly. Adrenals: Unremarkable. No mass. Kidneys and ureters: Unremarkable. No solid mass. No hydronephrosis. Stomach and bowel: Suspected left upper quadrant intussusception (series 2 image 31). No evidence of upstream bowel obstruction. Consider short-term interval follow-up imaging as an adult son bleed point is responsible. Multiple nondilated fluid-filled loops of small bowel without evidence of adjacent inflammatory change. Mild submucosal enhancement noted. Findings may relate to enteritis. PELVIS: Appendix: No findings to suggest acute appendicitis. Bladder: Unremarkable. No mass. Reproductive: Unremarkable as visualized. ABDOMEN and PELVIS: Intraperitoneal space: Unremarkable. No free air. No significant fluid collection. Bones/joints: L4-S1 posterior spinal fusion hardware. No acute fracture. No dislocation. Soft tissues: Umbilical hernia containing fat. Vasculature: Multiple collaterals adjacent to the spleen which likely relate to prior episodes splenic venous thrombosis. No abdominal aortic aneurysm. Lymph nodes: Unremarkable. No enlarged lymph nodes. IMPRESSION: 1. Suspected left upper quadrant intussusception (series 2 image 31). No evidence of upstream bowel obstruction. Consider short-term interval follow-up imaging as an adult son bleed point is responsible. 2. Multiple nondilated fluid-filled loops of small bowel without evidence of adjacent inflammatory change. Mild submucosal enhancement noted. Findings may relate to enteritis. 3. Diffuse pancreatic parenchymal calcifications which likely relate to chronic pancreatitis. Associated with this is pancreatic ductal dilatation measuring up to 6 mm. No gross findings to suggest acute pancreatitis. Consider correlation with lipase if there is further concern. 4. Multiple collaterals adjacent to the spleen which likely relate to prior episodes splenic venous thrombosis. 5. No evidence of biliary dilatation. Communications: Verify Receipt Electronically signed by: Vitaliy Talley MD 06/23/23 04:04 AM Chest X-Ray 06/23/23 04:36 XR chest 1V portable CLINICAL HISTORY: hyponatremia TECHNIQUE: Single frontal radiograph of the chest was obtained. Comparison: Comparison is made to chest radiograph 05/09/2023 FINDINGS: No lines and tubes are seen. The cardiomediastinal silhouette is normal. The lungs are clear. No evidence of pleural effusion or pneumothorax. IMPRESSION: No acute chest disease. ACT 112: Negative or not required by law. Electronically signed by: Kg Moreira M.D. 06/23/2023 8:24 AM Abdomen/Pelvis CT 06/23/23 11:12 CT abd pelvis oral con only CLINICAL HISTORY: Intussusception PLEASE USE Gastrografin TECHNIQUE: Helical axial images of the abdomen and pelvis were obtained. Automated dose lowering techniques and/or adjustment according to patient size were utilized for this exam. This exam was performed without intravenous contrast. CT DOSE: 967.55 mGy.cm COMPARISON: Comparison is made to CT abdomen pelvis 06/23/2023 FINDINGS: Lower chest: No acute abnormality. Liver: Hepatic steatosis is noted. Gallbladder and biliary tree: Patient is status post cholecystectomy. No intra- or extrahepatic biliary ductal dilation. Pancreas: Calcifications are seen in the pancreas possibly secondary to chronic pancreatitis. Spleen: Unremarkable. Adrenals: Unremarkable. Kidneys and ureters: Perinephric stranding is noted bilaterally. Bladder: Unremarkable. Reproductive organs: Prostatic calcifications are seen which may represent prior hemorrhage or granulomatous disease. Bowel: No evidence of obstruction or intussusception is seen. Lymph nodes Retroperitoneal: Unremarkable. Pelvic: Unremarkable. Mesenteric: Unremarkable. Peritoneum: Normal. Vessels: Unremarkable. Abdominal wall: Incidental note is made of a small anterior wall lipoma. Bones: Mild degenerative changes are seen. Posterior fixation hardware spans L4- S1. IMPRESSION: No acute abnormalities and in particular no evidence of obstruction or intussusception. Previously noted left upper quadrant intussusception has resolved. ACT 112: Negative or not required by law. Electronically signed by: Kg Moreira M.D. 06/23/2023 4:53 PM Pending Results Patient Have Any Pending Studies at Discharge: No Discharge Instructions Given to Patient (Per Discharging Provider) Mr. Zeng, You came in with abdominal pain and inability to tolerate food. There was a question of your bowel "telescoping" and you were evaluated by General Surgery. General Surgery ordered repeat imaging that determined that the telescoping or intussusception was NOT happening. You stated that your abdominal pain had improved and that "you could deal with the pain at home" if it happened. You stated that you were tolerating food. Should your symptoms worsen, consider use of over the counter pain medications to help or the medication Dicyclomine/Bentyl which was sent to your pharmacy that helps with abdominal pain. Do not hesitate to come back to the emergency room as well should your symptoms return. Your sodium levels were also really low on admission but has since resolved. Keep followup with your pcp about this. Dr. Calloway from General Surgery is requesting follow up with him in 2 weeks for continued monitoring of your symptoms. We also recommend close follow up with your primary care provider for continued management of your symptoms. It was a pleasure taking care of you while you were here. Total Time Total Time Spent Total Time Spent (In Minutes): > 30 minutes
== END 2023-06-25 12:59 | disposition home or self-care (01) | DRG 389 ==
LOC: ED 21:44 → EDINP 06-23 05:14 → 2N 06-23 14:02

== ENCOUNTER 2023-07-03 21:54 | Inpatient (IN) ==
[2023-07-03 22:55] LABS: Basophils # (auto) 0.08 K/uL (0.00-0.20); Basophils % (auto) 1.3 %; Eosinophils # (auto) 0.49 K/uL (0.00-0.50); Hematocrit (blood only) 39.9 % (42.0-52.0); Hemoglobin 14.5 g/dl (14.0-18.0); Immature Granulocytes # (auto) 0.01 K/uL (0.01-0.20); Immature Granulocytes % (auto) 0.2 %; Lymphocytes # (auto) 2.29 K/uL (1.20-3.40); Lymphocytes % (auto) 37.2 %; Mean Corpuscular Hemoglobin 32.2 pg (25.0-34.0); Mean Corpuscular Hgb Conc 36.3 g/dL (32.0-36.0); Mean Corpuscular Volume 88.7 fL (80.0-100.0); Mean Platelet Volume 9.4 fL (9.4-12.4); Monocytes # (auto) 0.49 K/uL (0.11-0.59); Neutrophils # (auto) 2.79 K/uL (1.40-6.50); Neutrophils % (auto) 45.3 %; Platelet Count 233 K/uL (130-400); RDW Coefficient of Variation 11.2 % (11.5-14.5); RDW Standard Deviation 36.5 fL (36.4-46.3); White Blood Count 6.15 K/ul (4.8-10.8)
[2023-07-03 23:24] LABS: Partial Thromboplastin Ratio 0.9; Partial Thromboplastin Time 25.5 Seconds (21.0-31.0); Prothrombin Time 10.5 Seconds (9.0-12.0)
[2023-07-03 23:42] LABS: Troponin I High Sensitivity 2.6 pg/ml (0-20)
[2023-07-03 23:55] LABS: Albumin Level 4.4 gm/dl (3.4-5.0); Bilirubin,Total 0.5 mg/dl (0.2-1.0); Calcium 9.4 mg/dl (8.6-10.3); Potassium 3.6 mmol/L (3.5-5.1)
[2023-07-04 00:09] LABS: Albumin Globulin Ratio 1.4 (0.9-2); BUN Creatinine Ratio 8.3 (10-20); Est GFR (African American) 119.2 ml/min; Est GFR (Non-African American) 102.8 ml/min; Globulin 3.1 gm/dl (2.5-4.0); Total Protein 7.5 gm/dl (6.0-8.3)
[2023-07-04] MEDS ORDERED: SODIUM CHLORIDE 0.9% 500 ML IV ONE (00:39)
[2023-07-04] MEDS ORDERED: HYDROmorphone INJ 0.5 MG/0.5 ML SYR IV STA (00:40)
[2023-07-04] MEDS: SODIUM CHLORIDE 0.9% 500 ML IV SCH ×2 (00:48→12:22)
--- OUTSIDE RECORDS SUMMARY | 2023-07-04 01:23 | External Medical Summary | Summary of Care ---
Author Name Unknown Organization [facility] Address [address] [facility] [place] [address] Phone [phone] Care Team Providers Care Tube Coremaker Name Role Phone Dhiraj Myers DO Primary Care Provider [phone] Encounter Details Date Type Department Care Team (Late st Contact Info) Description 06/28/2023 Population Health External Data Unspecified Department Allergies No known active allergiesdocumented as of this encounter (statuses as of 06/28/2023) Medications Medication Sig Dispensed Refills Start Date End Date Status Blood Glucose Monitoring Suppl (Xtime ULTRA SYSTEM) W/DEVICE KIT Use as directed 2 times a day. 1 Kit 0 06/28/2016 Active glipiZIDE ER 5 MG Oral Tablet Extended Release 24 Hour (glipiZIDE XL)Indications:Type 2 diabetes, HbA1C goal < 8% ([facility]) Take 1 Tablet by mouth in the [...] bedtime. 60 Tablet 5 10/07/2022 Active Creon [id number] UNIT Oral Capsule Delayed Release Particles (Pancrelipase (Fio-Xyfg-Gyuk)) take 1 cap orally three times a [...] 01/05/2023 Active Daily-Chriss Multivitamin Oral TabletIndications:p ack [id number] Take one tablet daily in the morning. [...] days 30 Tablet 0 01/05/2023 Active Pen [place] 32G X 4 MM Use as directed. 100 Each 02/24/2023 Active OneTouch Delica Plus [id number] s:Type 2 diabetes, HbA1C goal < 8% ([facility]) Use as directed 4 times a day as needed for Hyperglycemia (high sugar). 100 Each 5 02/24/2023 Active traMADol HCl 50 MG Oral Tablet (Ultram) take one tablet orally once daily As Needed for pain 10 Tablet 0 02/24/2023 Active Ondansetron 4 MG Oral Tablet Disintegrating (Zofran) Take 1 tablet (4 mg) by mouth every 6 hours As Needed for nausea and vomiting 10 Tablet 0 03/25/2023 Active Dicyclomine HCl 10 MG Oral Capsule (Bentyl) take 1 capsule (10 mg) by outh three times a day As Needed for abdominal pain 30 Capsule 0 06/25/2023 Active documented as of this encounter (statuses as of 06/28/2023) Active Problems Problem Noted Date Diagnosed Date Alcohol-induced chronic pancreatitis 09/21/2022 Thrombocytopenia 09/21/2022 Embolism and thrombosis of s uperficial veins of left lower extremity 09/21/2022 Alcohol abuse, uncomplicated 09/21/2022 Acute deep vein thrombosis (DVT) of calf muscle vein 08/05/2022 Chest pain 08/05/2022 Panic disorder (episodic paroxysmal anxiety) Renae's esophagus without dysplasia 08/20/2019 Other chronic pancreatitis 03/20/2018 Type 2 diabetes mellitus with hyperglycemia 03/07 History of alcohol abuse 10/12/2017 Bipolar depression 01/12/2016 Suicide attempt 06/23/2015 Chronic pain syndrome 06/23/2015 ADHD, hyperactive-impulsive type 05/05/2015 TERMINATED MEDICATION USAGE AGREEMENT 03/30/2015 Pulmonary embolism and infarction 03/24/2015 Overview: Summer 2014? Type 2 diabetes, HbA1C goal < 8% 10/03/2013 Overview: ICD-10 update of inactive term Chronic sinusitis 07/21/1999 Tobacco use disorder 03/29/1999 GENERALIZED ANXIETY DIS 03/01/1999 Sciatica 09/16/1998 Esophageal reflux Alcohol abuse, in remission Other allergic rhinitis Overview: ICD-10 update of inactive term Disorder of intervertebral disc Major depressive disorder Overview: 1/12 hosp psych-started on lithium 300mg QAM, 600mg QPM, librium taper. Referred to [facility]. Refused rehab. Grandmother cancer around -was close. Father committed suicide by gunshot 5mo later, patient found body ICD-10 update of inactive term Insomnia documented as of this encounter (statuses as of 06/28/2023) Resolved Problems Problem Noted Date Diagnosed Date Resolved Date Alcohol abuse with intoxication, unspecified 0 05/13/2021 Alcohol withdrawal, uncomplicated 03/20/2018 05/13/2021 Alcohol withdrawal 03/09/2017 8 MEDICATION USE AGREEMENT 12/11/2014 Narcotic addiction 12/11/2014 8 MEDICATION USE AGREEMENT 11/19/201402/2015 Routine general medical exam ination at a health care facility 09/26/2011 09/27/2013 Overview: Jailed around 08/18 Other specified adjustment reaction 01/05/1999 07/07/2011 Anxiety states 06/23/2015 Overview: ICD-10 update of inactive term Tobacco use disorder 012 documented as of this encounter (statuses as of 06/28/2023) Immunizations Name Administration Dates Next Due Pneumococcal [...] rehab around 2000. rehab again 2015 ETOH PHQ-2 Answer Date Recorded PHQ-2 Score -1 04/26/2020 Hunger Vital Sign Answer Date Recorded Within the past 12 months, y ou worried that your food would run out before you got the money to buy more. Never true 09/21/19 23 Within the past 12 months, t he food you bought just didn't last and you didn't have money to get more. Never true 09/21/2022 Sex and Gender Information Value Date Recorded Sex Assigned at Not on file Gender Identity Not on file Sexual Orientation Not on file Job Start Date Occupation Industry Not on file Not on file Not on file documented as of this encounter Plan of Treatment Upcoming Encounters Date Type Department Care Team (Late st Contact Info) Description 07/04/2023 1:40 PM EST Office Visit Family Practice [facility] [address] [address] [address] Dhiraj Myers DO [address] [place] [address] 10/31/2023 2:15 PM EDT Office Visit Urology, [facility] [address] [facility] [place] [address] Kemar Hagan MD [address] [place] [place] [address] Health Maintenance Due Date Last Done Comments [...] 10/23/2020, 0 10/12/2017, 01/12/2016, Additional history exists Diabetic Eye Exam 10/13/2022 10/13/2021, , 08/13/2018, Additional history exists [...] filedocumented as of this encounter Care Teams Tube Coremaker Relationship Specialty Start Date End Date Dhiraj Myers DO [address] [place] [address] PCP - General Family Medicine 01/24/17 documented as of this encounter
[2023-07-04] MEDS ORDERED: OPTIRAY 320 500ml IV ONE (02:12)
--- NOTE | 2023-07-04 04:03 | CT Scan Report ---
Exam(s): CT ABDOMEN + PELVIS With Contrast IV Amt: 91 ml optiray 320 EXAM: CT Abdomen and Pelvis With Intravenous Contrast CLINICAL HISTORY: eval for intussusception. TECHNIQUE: Axial computed tomography images of the abdomen and pelvis with intravenous contrast. Automated exposure control was utilized for the study. A dose lowering technique was utilized adhering to the principles of ALARA. CONTRAST: Patient received 91 ml optiray 320 of IV contrast COMPARISON: CT abdomen and pelvis with contrast dated 08/23/2022 FINDINGS: Lung bases: Unremarkable. No mass. No consolidation. ABDOMEN: Liver: Hepatic steatosis. No focal abnormality. Gallbladder and bile ducts: Status post cholecystectomy. No ductal dilation. Pancreas: Stable atrophy throughout the pancreas, most prominent involving the tail, with similar prominent diffuse dysmorphic calcifications noted. No definite acute peripancreatic fat stranding. Spleen: Unremarkable. No splenomegaly. Adrenals: Unremarkable. No mass. Kidneys and ureters: Unremarkable. No solid mass. No hydronephrosis. Stomach and bowel: Stomach is predominantly decompressed with only minimal fluid and gas. No gastric mucosal thickening. No evidence for bowel obstruction or significant asymmetric bowel mucosal abnormality. No evidence for intussusception. No diverticulitis. PELVIS: Appendix: No findings to suggest acute appendicitis. Bladder: Unremarkable. No mass. Reproductive: Unremarkable as visualized. ABDOMEN and PELVIS: Intraperitoneal space: Unremarkable. No free air. No significant fluid collection. Bones/joints: Postsurgical changes with posterior fusion and laminectomy defects from L4-S1. No acute osseous abnormality. No dislocation. Soft tissues: Unremarkable. Vasculature: Unremarkable. No abdominal aortic aneurysm. Lymph nodes: Unremarkable. No enlarged lymph nodes. IMPRESSION: 1. No evidence for bowel obstruction or significant asymmetric bowel mucosal abnormality. No evidence for intussusception. No diverticulitis. No free intraperitoneal fluid or pneumoperitoneum. 2. Stable atrophy throughout the pancreas, most prominent involving the tail, with similar prominent diffuse dysmorphic calcifications noted. Findings are Most consistent with chronic pancreatitis, similar in appearance. No definite acute peripancreatic fat stranding. Electronically signed by: Vitaliy Reich MD 07/04/23 04:02 AM
[2023-07-04] MEDS ORDERED: POTASSIUM CHLORIDE CRTAB 20 MEQ TABCR PO STA (05:34)
[2023-07-04] MEDS ORDERED: POTASSIUM CHLORIDE / WTR 10 MEQ/100 ML PLCT IV SCH (05:45)
--- NOTE | 2023-07-04 06:23 | History & Physical Report ---
Date of Service July 04, 2023 Assessment & Plan (1) Rectal bleed: Plan: 47-year-old male with past medical history significant for chronic alcohol abuse, ongoing alcoholism, chronic pancreatitis, GERD, Renae's esophagus, mood disorder, diabetes insulin requiring, history of PE recurrent on Eliquis, history of chronic pain, history of narcotic abuse, multiple admissions for alcoholism and pancreatitis comes with abdominal pain and rectal bleed. Rectal bleed Hemoglobin stable at 14.5 Ongoing alcoholism Will hold Eliquis N.p.o. IV fluids Protonix drip Follow H&H every 6 hours Blood consent obtained Consults GI Telemetry floor Alcoholism Monitor for alcohol withdrawal Banana bag IV thiamine and folic acid Gabapentin alcohol withdrawal protocol and IV Ativan as needed Close monitor for withdrawal Diabetes Seems not on medications Insulin sliding-scale Follow blood sugars Follow HbA1c levels History of PE. Recurrent Holding Eliquis for above Restart as soon as possible History of GERD and Renae's esophagus Currently on PPI drip History of chronic pancreatitis Chronic pain Complaining of severe abdominal pain IV Dilaudid as needed for now History of mood disorder DVT prophylaxis SCDs Disposition telemetry floor Full code History of Present Illness Chief Complaint: Abdominal pain and rectal bleed Primary Care Provider: Dhiraj Myers DO 47-year-old male with past medical significant for chronic alcohol abuse, ongoing alcoholism, chronic pancreatitis, GERD, Renae's esophagus, mood disorder, diabetes insulin requiring, history of PE recurrent on Eliquis, history of chronic pain, history of narcotic abuse, multiple admissions for alcoholism and pancreatitis comes with abdominal pain and rectal bleed. Patient states he had 2 episodes of bloody bowel movements in last 8 hours. Shows a picture of blood in the stools. Also has severe abdominal pain. Ongoing alcoholism. Says drinks 6 beers daily. Denies any chest pain or shortness of breath. No headache. No runny nose or sore throat. No cough. Request for pain medication. Allergies Allergy/AdvReac Type Severity Reaction Status Date / Time No Known Allergies Allergy Verified 06/22/23 23:24 Home Medications Medication Instructions Recorded Confirmed Type pantoprazole 40 mg tablet,delayed 40 mg PO DAILY 01/03/23 07/03/23 History release apixaban 5 mg tablet (Eliquis) 5 mg PO DAILY 06/23/23 07/03/23 History dicyclomine 10 mg capsule 10 mg PO TID PRN abdominal pain 06/25/23 07/03/23 Rx #30 caps Past Med/Surg History Medical History Abdominal pain Epigastric abdominal pain Pancreatic duct stones Abdominal pain, acute, epigastric Retrosternal chest pain History of pulmonary embolism Alcohol withdrawal Alcoholic ketosis COVID-19 Nausea & vomiting Alcohol abuse Abdominal pain Encounter for pre-operative examination Acute hyperglycemia Encounter for alcohol abuse counseling and surveillance Encounter for tobacco use cessation counseling Alcohol abuse Pancreatitis Neuropathy Hyperglycemia Chest pain Abdominal pain Pulmonary embolism on chronic apixaban Depression Mood disorder Intentional drug overdose Suicidal ideation Suicide attempt Mood disorder Suicidal ideation Lumbar degenerative disc disease Panic disorder Depression History of substance abuse Alcohol abuse (Unknown) H/O acute pancreatitis "recurrent" Renae's esophagus (Unknown) "per EGD 11/23/09 " On 05/31/11 09:06 Martinez Jose wrote "per EGD 11/23/09 " DM type 2 (diabetes mellitus, type 2) Surgical History S/P lumbar fusion L4-S1 2014 H/O esophagogastroduodenoscopy "EGD 11/23/2009- mild gastritis, suspicious for gastroparesis, Z-line irregular EUS 02/04/2010- mild chronic pancreatitis, pronounced cholesterolosis of gallbladder, no biliary dilation or stones, probable gastroparesis EGD 10/31/2014- gastritis" Family History Father Alcohol abuse Social History Smoking Status: Heavy tobacco smoker Tobacco Type: Smokeless Tobacco (Dip or Chew) Second Hand Exposure: No; Do You Dip or Chew Tobacco: Yes; Hx Alcohol Use: Yes Alcohol type: beer Hx Substance Use: No Preferred Language: Polish Communication Ability: Effective International Travel Consultant Required: No Beliefs That Will Affect Care: None marital status: Current Living Situation: Parent Current Living Situation Comment: home with mom How many Children do You have: 3 Feels Safe at Home: Yes Assistive Devices: None Review of Systems Review of Systems: All systems reviewed & are unremarkable except as noted in HPI & below Physical Exam Physical Exam: General- Not in distress Head- atraumatic Eyes- PERRL ENT- oropharynx clear. Can see tobacco Neck- supple, no JVD. Lungs- clear to auscultation , No wheezing or crackles. Heart- regular rhythm; no murmur, no gallop. Abdomen- normal bowel sounds, soft, diffuse tender. no distension Extremities- no pretibial edema, no erythema Neuro- alert, oriented x 3; PERRL,no facial palsy; no dysarthria; moves extremities. Skin- warm & dry Results & Data Results & Data Vital Signs (Past 12 Hours) Vital Signs Temp Pulse Resp BP Pulse Ox O2 Del Method 07/04/23 04:30 98 H 12 97 Room Air 07/04/23 04:00 98 H 14 93/76 L 98 Room Air 07/04/23 03:54 97 H 07/04/23 03:30 99 H 13 104/76 96 Room Air 07/04/23 03:00 95 H 12 104/79 98 Room Air 07/04/23 02:30 91 H 12 108/77 99 Room Air 07/04/23 02:00 94 H 29 H 113/81 97 Room Air 07/04/23 01:30 95 H 13 124/78 98 Room Air 07/04/23 01:00 107 H 23 114/86 98 Room Air 07/04/23 00:30 97 H 13 122/85 99 Room Air 07/04/23 00:00 100 H 16 117/83 95 Room Air 07/03/23 23:54 97 H 24 129/89 98 Room Air 07/03/23 23:53 100 H 07/03/23 22:12 36.4 C L 112 H 19 146/71 H 97 Room Air Diagnostic Findings Laboratory Results WBC 6.15 K/ul (4.8-10.8) 07/03/23 22:30 RBC 4.50 M/uL (4.70-6.10) L 07/03/23 22:30 Hgb 14.5 g/dl (14.0-18.0) 07/03/23 22:30 Hct 39.9 % (42.0-52.0) L 07/03/23 22:30 MCV 88.7 fL (80.0-100.0) 07/03/23 22:30 MCH 32.2 pg (25.0-34.0) 07/03/23 22: MCHC 36.3 g/dL (32.0-36.0) H 07/03/23: RDW Std Deviation 36.5 fL (36.4-46.3) 07/03/23: RDW Coeff of Gucci 11.2 % (11.5-14.5) L 07/03/23: Plt Count 233 K/uL (130-400) 07/03/23 22: MPV 9.4 fL (9.4-12.4) 07/03/23: Immature Gran % (Auto) 0.2 % 07/03/23: Neut % (Auto) 45.3 % 07/03/23: Lymph % (Auto) 37.2 % 07/03/23: [place] % (Auto) 8.0 % 07/03/23: Eos % (Auto) 8.0 % 07/03/23: Baso % (Auto) 1.3 % 07/03/23 22: Neut # (Auto) 2.79 K/uL (1.40-6.50) 07/03/23 22:30 Lymph # (Auto) 2.29 K/uL (1.20-3.40) 07/03/23 22:30 [place] # (Auto) 0.49 K/uL (0.11-0.59) 07/03/23 22: Eos # (Auto) 0.49 K/uL (0.00-0.50) 07/03/23 22: Baso # (Auto) 0.08 K/uL (0.00-0.20) 07/03/23: Immature Gran # (Auto) 0.01 K/uL (0.01-0.20) 07/03/23 22: PT 10.5 Seconds (9.0-12.0) 07/03/23 22: INR 1.0 (0.9-1.1) 07/03/23 22: APTT 25.5 Seconds (21.0-31.0) 07/03/23 22: PTT Ratio 0.9 07/03/23 22: Sodium 130 mmol/L (136-145) L 07/03/23 22:30 Potassium 3.6 mmol/L (3.5-5.1) 07/03/23 22: Chloride 96 mmol/L (98-107) L 07/03/23 22: Carbon Dioxide 19 mmol/L (21-32) L 07/03/23 22: Anion Gap 15 (3-11) H 07/03/23 22: BUN 7 mg/dl (6-23) 07/03/23 22: Creatinine 0.84 mg/dl (0.6-1.4) 07/03/23 22: Est Cr Clr Drug Dosing 99.0 ml/min 07/03/23 22:30 Est GFR ( Amer) 119.2 ml/min 07/03/23: Est GFR (Non-Af Amer) 102.8 ml/min 07/03/23 22: BUN/Creatinine Ratio 8.3 (10-20) L 07/03/23 22: Glucose 329 mg/dl (70-99(Fasting)) H* 07/03/23 22: Calcium 9.4 mg/dl (8.6-10.3) 07/03/23 22: Total Bilirubin 0.5 mg/dl (0.2-1.0) 07/03/23 22: AST 38 U/L (13-39) 07/03/23 22: ALT 40 U/L (7-52) 07/03/23 22: Alkaline Phosphatase 70 U/L (34-104) 07/03/23 22: Troponin I High Sens 2.6 pg/ml (0-20) 07/03/23 22: Total Protein 7.5 gm/dl (6.0-8.3) 07/03/23 22: Albumin 4.4 gm/dl (3.4-5.0) 07/03/23 22: Globulin 3.1 gm/dl (2.5-4.0) 07/03/23 22: Albumin/Globulin Ratio 1.4 (0.9-2) 07/03/23 22: Lipase 10 U/L (11-82) L 07/03/23 22: Ethyl Alcohol mg/dL 345.8 mg/dl (<10.0) H 07/04/23 Unknown Impressions Abdomen/Pelvis CT 07/04/23 01:44 Exam(s): CT ABDOMEN + PELVIS With Contrast IV Amt: 91 ml optiray 320 EXAM: CT Abdomen and Pelvis With Intravenous Contrast CLINICAL HISTORY: eval for intussusception. TECHNIQUE: Axial computed tomography images of the abdomen and pelvis with intravenous contrast. Automated exposure control was utilized for the study. A dose lowering technique was utilized adhering to the principles of ALARA. CONTRAST: Patient received 91 ml optiray 320 of IV contrast COMPARISON: CT abdomen and pelvis with contrast dated 08/23/2022 FINDINGS: Lung bases: Unremarkable. No mass. No consolidation. ABDOMEN: Liver: Hepatic steatosis. No focal abnormality. Gallbladder and bile ducts: Status post cholecystectomy. No ductal dilation. Pancreas: Stable atrophy throughout the pancreas, most prominent involving the tail, with similar prominent diffuse dysmorphic calcifications noted. No definite acute peripancreatic fat stranding. Spleen: Unremarkable. No splenomegaly. Adrenals: Unremarkable. No mass. Kidneys and ureters: Unremarkable. No solid mass. No hydronephrosis. Stomach and bowel: Stomach is predominantly decompressed with only minimal fluid and gas. No gastric mucosal thickening. No evidence for bowel obstruction or significant asymmetric bowel mucosal abnormality. No evidence for intussusception. No diverticulitis. PELVIS: Appendix: No findings to suggest acute appendicitis. Bladder: Unremarkable. No mass. Reproductive: Unremarkable as visualized. ABDOMEN and PELVIS: Intraperitoneal space: Unremarkable. No free air. No significant fluid collection. Bones/joints: Postsurgical changes with posterior fusion and laminectomy defects from L4-S1. No acute osseous abnormality. No dislocation. Soft tissues: Unremarkable. Vasculature: Unremarkable. No abdominal aortic aneurysm. Lymph nodes: Unremarkable. No enlarged lymph nodes. IMPRESSION: 1. No evidence for bowel obstruction or significant asymmetric bowel mucosal abnormality. No evidence for intussusception. No diverticulitis. No free intraperitoneal fluid or pneumoperitoneum. 2. Stable atrophy throughout the pancreas, most prominent involving the tail, with similar prominent diffuse dysmorphic calcifications noted. Findings are Most consistent with chronic pancreatitis, similar in appearance. No definite acute peripancreatic fat stranding. Electronically signed by: Vitaliy Reich MD 07/04/23 04:02 AM ECG Additional Comments: ECG. Sinus tachycardia rate of 105. No significant change was found. Code Status & VTE Plan VTE Prophylaxis Plan VTE Prophylaxis will be ordered: Yes
--- NOTE | 2023-07-04 07:00 | XRay Report ---
XR chest 1V not portable CLINICAL HISTORY: Chest pain, nonspecific. COMPARISON STUDY: Chest radiograph June 23, 2023. Chest CT August 27, 2022. FINDINGS: Lung volumes are normal. Lungs are clear. There is no pneumothorax or pleural effusion. Car diac size is normal. Mediastinal contours are normal. There is no evidence for pulmonary edema. IMPRESSION: No acute cardiopulmonary findings. ACT 112: Negative or not required by law. Electronically signed by: Quinton Corrales M.D. 07/04/2023 6:59 AM
[2023-07-04] MEDS ORDERED: MULTI-VITAMIN INFUSION 10 ML, THIAMINE HCL 100 MG, FOLIC ACID 1 MG in SODIUM CHLORIDE 0... IV ONE (07:57)
[2023-07-04] MEDS ORDERED: CARBOHYDRATES FOR HYPOGLYCEMIA PO PRN (07:57)
[2023-07-04] MEDS ORDERED: LORazepam 2 MG in SYRINGE 1 ML IV PRN (07:57)
[2023-07-04] MEDS ORDERED: LORazepam 3 MG in SYRINGE 1.5 ML IV PRN (07:57)
[2023-07-04] MEDS ORDERED: PANTOPRAZOLE BOLUS/DRIP IV STA (07:57)
[2023-07-04] MEDS ORDERED: PANTOprazole 80 MG in DEXTROSE 5% 100 ML IV ONE (07:57)
[2023-07-04] MEDS ORDERED: GLUCAGON FOR INJ 1 MG VIAL SQ PRN (07:57)
[2023-07-04] MEDS ORDERED: NITROGLYCERIN SL 0.4 MG/TAB TAB SL PRN (07:57)
[2023-07-04] MEDS ORDERED: DEXTROSE 50% 50 ML SYRINGE IV PRN (07:57)
[2023-07-04] MEDS ORDERED: GLUCOSE 40% GEL 15 GM TUBE PO PRN (07:57)
[2023-07-04] MEDS ORDERED: GLUCOSE 10 TAB/TUBE PO PRN (07:57)
[2023-07-04] MEDS ORDERED: GABAPENTIN 600 MG TAB PO ONE (07:57)
[2023-07-04] MEDS ORDERED: GABAPENTIN 1200MG ALCOHOL WITHDRAWAL LOAD PO STA (07:57)
[2023-07-04] MEDS ORDERED: Ativan IV Alcohol Withdrawal--Active Protocol IV PRN (07:57)
[2023-07-04] MEDS ORDERED: LORazepam 1 MG in SYRINGE 0.5 ML IV PRN (07:57)
--- NOTE | 2023-07-04 08:00 | Emergency Department Note ---
Impression & Plan Acute GI bleeding, Alcohol abuse Admit to the [facility] ED Provider Note NAME: RIKY MELTON AGE: 47 SEX: Male INFORMANT: Patient ED PROVIDER(S): Martina Oates DO CHIEF COMPLAINT: Rectal bleeding and diffuse abdominal pain PLAN: Disposition: Admit to the [facility] MEDICAL DECISION MAKING: This is a 47-year-old male patient with history of chronic pancreatitis and alcohol abuse who presents to the emergency department with new onset rectal bleeding. Patient describes episode of bright red blood in the toilet 4 days ago but that it subsided until tonight when he attempted to have a bowel movement but only blood came from the rectum. He does continue to drink beer and presents with crampy abdominal pain. Blood alcohol level was greater than 300. H&H were stable. Lipase was normal. CT scan showed evidence of chronic pancreatitis but no acute findings. Glucose was 329. Sodium was slightly low at 130. When the patient had a bowel movement there was bright red blood in the toilet. Patient required IV Dilaudid for management of his crampy abdominal pain. I discussed the case with the [facility] Hospitalist and they will evaluate for inpatient care. Care/management discussed with: [facility] Triage Nursing notes: Reviewed and agree with them. Vital Signs: reviewed and unremarkable Chronic Medical/Social Conditions affecting care: Alcoholism Prior/ Outside/ External records reviewed: Previous admission to the hospital just last month for intussusception Differential Diagnosis: Recurrent intussusception, small bowel obstruction, acute pancreatitis, acute GI bleeding Diagnostics, independently interpreted by me: Cardiac Monitoring: Normal sinus rhythm at 98 Imaging studies: CT scan of the abdomen/pelvis-as per stat rad HPI: 47 year old Male arrives for evaluation of rectal bleeding and abdominal pain. Patient noted an episode of bright red bleeding per rectum 4 days ago and had a recurrent episode today associated with some significant crampy abdominal pain. Patient has a history of chronic pancreatitis and alcohol abuse. He was admitted a month ago here to this hospital with intussusception and is concerned this is happening again PAST MEDICAL HISTORY: See Below, PAST SURGICAL HISTORY: See Below, SOCIAL HISTORY: See Below, HOME MEDICATIONS: See list ALLERGIES: None VITALS: See Below PHYSICAL EXAMINATION: HEENT: Head - normocephalic and atraumatic Pupils are equal, round, and reactive to light. Extraocular eye muscles are intact, and sclera are anicteric. Nose - moist nasal mucosa without discharge. Mouth - moist buccal mucosa. Oropharynx is dry with chewing tobacco about his mouth Neck: Supple; no JVD or cervical lymphadenopathy Heart: Regular rate and rhythm. There is a normal S1 and S2 with no murmurs, clicks, or gallops appreciated. Lungs: Clear to auscultation bilaterally with no wheezes, rales, or rhonchi. Abdomen: Soft, with moderate epigastric tenderness to palpation there are no palpable pulsatile masses or hepatosplenomegaly. There is no guarding, rigidity, or rebound noted. Extremities: No evidence of cyanosis, clubbing, or edema. There are easily palpable peripheral pulses. Skin: warm and dry with good turgor and no rashes. Emergency department treatment: Cardiac monitoring, IV normal saline bolus, IV Dilaudid Emergency department course: The patient was evaluated in room B5. A complete history and physical was performed. An IV lock was initiated and labs were drawn as above. An order was placed for continuous cardiac monitoring. The patient was in a normal sinus rhythm at a rate of 98. He was bolused with IV normal saline solution and given a dose of IV Dilaudid for his crampy abdominal pain. Patient went for CT scan of his abdomen and pelvis as described above. I discussed the case with the [facility] Hospitalist and they will evaluate for further inpatient care. Past Med/Surg History Medical History Abdominal pain Epigastric abdominal pain Pancreatic duct stones Abdominal pain, acute, epigastric Retrosternal chest pain History of pulmonary embolism Alcohol withdrawal Alcoholic ketosis COVID-19 Nausea & vomiting Alcohol abuse Abdominal pain Encounter for pre-operative examination Acute hyperglycemia Encounter for alcohol abuse counseling and surveillance Encounter for tobacco use cessation counseling Alcohol abuse Pancreatitis Neuropathy Hyperglycemia Chest pain Abdominal pain Pulmonary embolism on chronic apixaban Depression Mood disorder Intentional drug overdose Suicidal ideation Suicide attempt Mood disorder Suicidal ideation Lumbar degenerative disc disease Panic disorder Depression History of substance abuse Alcohol abuse (Unknown) H/O acute pancreatitis "recurrent" Renae's esophagus (Unknown) "per EGD 11/23/09 " On 05/31/11 09:06 Martinez Jose wrote "per EGD 11/23/09 " DM type 2 (diabetes mellitus, type 2) Surgical History S/P lumbar fusion L4-S1 2014 H/O esophagogastroduodenoscopy "EGD 11/23/2009- mild gastritis, suspicious for gastroparesis, Z-line irregular EUS 02/04/2010- mild chronic pancreatitis, pronounced cholesterolosis of gallbladder, no biliary dilation or stones, probable gastroparesis EGD 10/31/2014- gastritis" Family History Father Alcohol abuse Social History Smoking Status: Current every day smoker Tobacco Type: Smokeless Tobacco (Dip or Chew) Second Hand Exposure: No; Do You Dip or Chew Tobacco: Yes; Hx Alcohol Use: Yes Alcohol type: hard liquor Hx Substance Use: No Preferred Language: Greek Communication Ability: Effective Manager Metrology Required: No Beliefs That Will Affect Care: None marital status: Current Living Situation: Alone Current Living Situation Comment: home with mom How many Children do You have: 3 Other Information That Helps Us Care for You: No Feels Safe at Home: Yes Safety Concerns: Feels Safe At This Time Assistive Devices: None Allergies Allergies Allergy/AdvReac Type Severity Reaction Status Date / Time No Known Allergies Allergy Verified 06/22/23 23:24 Home Meds Home Medications Medication Instructions Recorded Confirmed pantoprazole 40 mg tablet,delayed 40 mg PO DAILY 01/03/23 07/03/23 release apixaban 5 mg tablet (Eliquis) 5 mg PO DAILY 06/23/23 07/03/23 Previous Rx's Medication Instructions Recorded dicyclomine 10 mg capsule 10 mg PO TID PRN abdominal pain 06/25/23 #30 caps Results & Data (ED) Vital Signs Vital Signs - 24 hr 07/03/23 22:12 07/03/23 23:53 07/03/23 23:54 Temperature 36.4 C L Temperature Source Skin Pulse Rate 112 H 100 H 97 H Respiratory Rate 19 24 Respiratory Effort / Characteristics Non-Labored Respiratory Depth Normal Blood Pressure 146/71 H 129/89 Blood Pressure Mean 96 102 Pulse Oximetry 97 98 Oxygen Delivery Method Room Air Room Air Sepsis Recent Fever Within 48 Hours No Sepsis New/Unexplained Change in Mental Status N/A Sepsis Action Taken by Nursing No Action Required 07/04/23 00:00 07/04/23 00:30 07/04/23 01:00 Temperature Temperature Source Pulse Rate 100 H 97 H 107 H Respiratory Rate 16 13 23 Respiratory Effort / Characteristics Respiratory Depth Blood Pressure 117/83 122/85 114/86 Blood Pressure Mean 94 97 95 Pulse Oximetry 95 99 98 Oxygen Delivery Method Room Air Room Air Room Air Sepsis Recent Fever Within 48 Hours Sepsis New/Unexplained Change in Mental Status Sepsis Action Taken by Nursing 07/04/23 01:30 07/04/23 02:00 07/04/23 02:30 Temperature Temperature Source Pulse Rate 95 H 94 H 91 H Respiratory Rate 13 29 H 12 Respiratory Effort / Characteristics Respiratory Depth Blood Pressure 124/78 113/81 108/77 Blood Pressure Mean 93 91 87 Pulse Oximetry 98 97 99 Oxygen Delivery Method Room Air Room Air Room Air Sepsis Recent Fever Within 48 Hours Sepsis New/Unexplained Change in Mental Status Sepsis Action Taken by Nursing 07/04/23 03:00 07/04/23 03:30 07/04/23 03:54 Temperature Temperature Source Pulse Rate 95 H 99 H 97 H Respiratory Rate 12 13 Respiratory Effort / Characteristics Respiratory Depth Blood Pressure 104/79 104/76 Blood Pressure Mean 87 85 Pulse Oximetry 98 96 Oxygen Delivery Method Room Air Room Air Sepsis Recent Fever Within 48 Hours Sepsis New/Unexplained Change in Mental Status Sepsis Action Taken by Nursing 07/04/23 04:00 07/04/23 04:30 07/04/23 05:23 Temperature Temperature Source Pulse Rate 98 H 98 H 105 H Respiratory Rate 14 12 24 Respiratory Effort / Characteristics Respiratory Depth Blood Pressure 93/76 L 103/78 Blood Pressure Mean 81 86 Pulse Oximetry 98 97 98 Oxygen Delivery Method Room Air Room Air Room Air Sepsis Recent Fever Within 48 Hours Sepsis New/Unexplained Change in Mental Status Sepsis Action Taken by Nursing 07/04/23 05:30 07/04/23 06:00 Temperature Temperature Source Pulse Rate 87 80 Respiratory Rate 20 19 Respiratory Effort / Characteristics Respiratory Depth Blood Pressure 109/73 105/80 Blood Pressure Mean 85 88 Pulse Oximetry 97 99 Oxygen Delivery Method Room Air Room Air Sepsis Recent Fever Within 48 Hours Sepsis New/Unexplained Change in Mental Status Sepsis Action Taken by Nursing Laboratory Data 07/04/23 08:14 07/04/23 08:14 Lab Results 07/03/23 Range/Units 22:30 WBC 6.15 (4.8-10.8) K/ul RBC 4.50 L (4.70-6.10) M/uL Hgb 14.5 (14.0-18.0) g/dl Hct 39.9 L (42.0-52.0) % MCV 88.7 (80.0-100.0) fL MCH 32.2 (25.0-34.0) pg MCHC 36.3 H (32.0-36.0) g/dL RDW Std Deviation 36.5 (36.4-46.3) fL RDW Coeff of Gucci 11.2 L (11.5-14.5) % Plt Count 233 (130-400) K/uL MPV 9.4 (9.4-12.4) fL Immature Gran % (Auto) 0.2 % Neut % (Auto) 45.3 % Lymph % (Auto) 37.2 % Phillips % (Auto) 8.0 % Eos % (Auto) 8.0 % Baso % (Auto) 1.3 % Neut # (Auto) 2.79 (1.40-6.50) K/uL Lymph # (Auto) 2.29 (1.20-3.40) K/uL Phillips # (Auto) 0.49 (0.11-0.59) K/uL Eos # (Auto) 0.49 (0.00-0.50) K/uL Baso # (Auto) 0.08 (0.00-0.20) K/uL Immature Gran # (Auto) 0.01 (0.01-0.20) K/uL PT 10.5 (9.0-12.0) Seconds INR 1.0 (0.9-1.1) APTT 25.5 (21.0-31.0) Seconds PTT Ratio 0.9 Sodium 130 L (136-145) mmol/L Potassium 3.6 (3.5-5.1) mmol/L Chloride 96 L (98-107) mmol/L Carbon Dioxide 19 L (21-32) mmol/L Anion Gap 15 H (3-11) BUN 7 (6-23) mg/dl Creatinine 0.84 (0.6-1.4) mg/dl Est Cr Clr Drug Dosing 99.0 ml/min Est GFR ( Amer) 119.2 ml/min Est GFR (Non-Af Amer) 102.8 ml/min BUN/Creatinine Ratio 8.3 L (10-20) Glucose 329 H* (70-99(Fasting)) mg/dl Calcium 9.4 (8.6-10.3) mg/dl Total Bilirubin 0.5 (0.2-1.0) mg/dl AST 38 (13-39) U/L ALT 40 (7-52) U/L Alkaline Phosphatase 70 (34-104) U/L Troponin I High Sens 2.6 (0-20) pg/ml Total Protein 7.5 (6.0-8.3) gm/dl Albumin 4.4 (3.4-5.0) gm/dl Globulin 3.1 (2.5-4.0) gm/dl Albumin/Globulin Ratio 1.4 (0.9-2) Lipase 10 L (11-82) U/L Administered Medications Gabapentin (Gabapentin 600 Mg Tab) 600 mg PO Q6H [facility] Stop: 07/04/23 18:16 Last Admin: 07/04/23 12:21 Dose: 600 mg Documented By: CANDACE Hydromorphone HCl (Hydromorphone Inj 0.5 Mg/0.5 Ml Syr) 0.5 mg IV Q4H PRN PRN Reason: Pain Stop: 07/18/23 07:56 Last Admin: 07/04/23 13:03 Dose: 0.5 mg Documented By: Admin: 07/04/23 08:55 Dose: 0.5 mg Documented By: Sodium Chloride (Nss) 1,000 mls @ 125 mls/hr IV .Q8H [facility] Stop: 08/03/23 07:56 Last Admin: 07/04/23 08:55 Dose: 125 mls/hr Documented By: HS Pantoprazole Sodium 40 mg/ (Dextrose) 100 mls @ 20 mls/hr IV Q5H [facility] Stop: 08/03/23 07:59 Last Admin: 07/04/23 12:07 Dose: 8 mg/hr, 20 mls/hr Documented By: CANDACE Insulin Aspart (Insulin Aspart Per Unit Charge) 0 units SC ACHS [facility] Stop: 08/03/23 07:56 Last Admin: 07/04/23 12:25 Dose: Not Given Documented By: Admin: 07/04/23 09:27 Dose: Not Given Documented By: BRIGIDA Co-signed By: ROCIO Ondansetron HCl (Ondansetron Inj 2 Mg/Ml 2 Ml Vial) 4 mg IV Q6H PRN PRN Reason: Nausea Stop: 08/03/23 07:56 Last Admin: 07/04/23 13:42 Dose: 4 mg Documented By: CANDACE Discontinued Medications Gabapentin (Gabapentin 600 Mg Tab) 1,200 mg PO NOW ONE Stop: 07/04/23 07:58 Last Admin: 07/04/23 08:54 Dose: 1,200 mg Documented By: BRIGIDA Hydromorphone HCl (Hydromorphone Inj 0.5 Mg/0.5 Ml Syr) 0.5 mg IV NOW STA Stop: 07/04/23 00:41 Last Admin: 07/04/23 00:47 Dose: 0.5 mg Documented By: DAVID Sodium Chloride (Nss) 500 mls @ 999 mls/hr IV .Q31M ONE Stop: 07/04/23 01:09 Last Infusion: 07/04/23 01:32 Dose: Infused Documented By: Admin: 07/04/23 00:48 Dose: 999 mls/hr Documented By: DAVID Sodium Chloride (Nss) 500 mls @ 125 mls/hr IV .Q4H [facility] Stop: 08/03/23 00:44 Last Admin: 07/04/23 12:22 Dose: 125 mls/hr Documented By: Infusion: 07/04/23 06:09 Dose: Infused Documented By: Admin: 07/04/23 00:48 Dose: 125 mls/hr Documented By: DAVID Potassium Chloride (K Nitesh / Wtr) 10 meq in 100 mls @ 100 mls/hr IV Q1H [facility] Stop: 07/04/23 09:44 Last Admin: 07/04/23 06:38 Dose: Not Given Documented By: DAVID Multivitamins 10 ml/ Thiamine HCl 100 mg/ Folic Acid 1 mg/Sodium Chloride 1,011.2 mls @ 500 mls/hr IV .Q2H2M ONE Stop: 07/04/23 09:58 Last Infusion: 07/04/23 12:22 Dose: Infused Documented By: Admin: 07/04/23 09:56 Dose: 500 mls/hr Documented By: BRIGIDA Pantoprazole Sodium 80 mg/ (Dextrose) 120 mls @ 400 mls/hr IV NOW ONE Stop: 07/04/23 08:14 Last Infusion: 07/04/23 14:04 Dose: Infused Documented By: Admin: 07/04/23 09:32 Dose: 400 mls/hr Documented By: BRIGIDA Ioversol (Optiray 320 500ml) 100 ml IV ONCE ONE Stop: 07/04/23 02:13 Last Admin: 07/04/23 02:12 Dose: 91 ml Documented By: LUANN Potassium Chloride (Potassium Chloride Crtab 20 Meq Tabcr) 20 meq PO NOW STA Stop: 07/04/23 05:35 Last Admin: 07/04/23 06:38 Dose: Not Given Documented By: DAVID Imaging Data Radiologist's Impression: Chest X-Ray 07/03/23 22:21 XR chest 1V not portable CLINICAL HISTORY: Chest pain, nonspecific. COMPARISON STUDY: Chest radiograph June 23, 2023. Chest CT August 27, 2022. FINDINGS: Lung volumes are normal. Lungs are clear. There is no pneumothorax or pleural effusion. Cardiac size is normal. Mediastinal contours are normal. There is no evidence for pulmonary edema. IMPRESSION: No acute cardiopulmonary findings. ACT 112: Negative or not required by law. Electronically signed by: Quinton Corrales M.D. 07/04/2023 6:59 AM Abdomen/Pelvis CT 07/04/23 01:44 Exam(s): CT ABDOMEN + PELVIS With Contrast IV Amt: 91 ml optiray 320 EXAM: CT Abdomen and Pelvis With Intravenous Contrast CLINICAL HISTORY: eval for intussusception. TECHNIQUE: Axial computed tomography images of the abdomen and pelvis with intravenous contrast. Automated exposure control was utilized for the study. A dose lowering technique was utilized adhering to the principles of ALARA. CONTRAST: Patient received 91 ml optiray 320 of IV contrast COMPARISON: CT abdomen and pelvis with contrast dated 08/23/2022 FINDINGS: Lung bases: Unremarkable. No mass. No consolidation. ABDOMEN: Liver: Hepatic steatosis. No focal abnormality. Gallbladder and bile ducts: Status post cholecystectomy. No ductal dilation. Pancreas: Stable atrophy throughout the pancreas, most prominent involving the tail, with similar prominent diffuse dysmorphic calcifications noted. No definite acute peripancreatic fat stranding. Spleen: Unremarkable. No splenomegaly. Adrenals: Unremarkable. No mass. Kidneys and ureters: Unremarkable. No solid mass. No hydronephrosis. Stomach and bowel: Stomach is predominantly decompressed with only minimal fluid and gas. No gastric mucosal thickening. No evidence for bowel obstruction or significant asymmetric bowel mucosal abnormality. No evidence for intussusception. No diverticulitis. PELVIS: Appendix: No findings to suggest acute appendicitis. Bladder: Unremarkable. No mass. Reproductive: Unremarkable as visualized. ABDOMEN and PELVIS: Intraperitoneal space: Unremarkable. No free air. No significant fluid collection. Bones/joints: Postsurgical changes with posterior fusion and laminectomy defects from L4-S1. No acute osseous abnormality. No dislocation. Soft tissues: Unremarkable. Vasculature: Unremarkable. No abdominal aortic aneurysm. Lymph nodes: Unremarkable. No enlarged lymph nodes. IMPRESSION: 1. No evidence for bowel obstruction or significant asymmetric bowel mucosal abnormality. No evidence for intussusception. No diverticulitis. No free intraperitoneal fluid or pneumoperitoneum. 2. Stable atrophy throughout the pancreas, most prominent involving the tail, with similar prominent diffuse dysmorphic calcifications noted. Findings are Most consistent with chronic pancreatitis, similar in appearance. No definite acute peripancreatic fat stranding. Electronically signed by: Vitaliy Reich MD 07/04/23 04:02 AM Discharge Plan Visit Data Chief Complaint: Rectal Bleed Stated Complaint: ABD/CHEST PAIN,BLOOD IN STOOL ED Provider: Martina Oates Discharge Problem: Acute GI bleeding, Alcohol abuse Patient Disposition: Admitted As Inpatient Discharge Instructions Interventions: ED Discharge Assessment Last Done: 07/04/23 07:57
--- NOTE | 2023-07-04 08:31 | Gastrointestinal Consultation ---
Date of Consultation July 04, 2023 Assessment & Plan (1) Bright red blood per rectum: Likely hemorrhoidal. He has not had a significant drop in his hemoglobin. Photograph appeared to be a formed bowel movement with bright red blood such as expected with hemorrhoidal bleeding. (2) Lower abdominal pain: He has chronic bilateral lower abdomen pain associated with defecation resolved after. This most likely represents constipation and/or IBS. Plan Patient tells me he was recently prescribed dicyclomine but has not tried it yet. He will try of this as previously prescribed. Recommend daily fiber. He is also prescribed pancreatic replacement enzymes, but has not been using it or rarely takes them just because he forgets. Encouraged to take those before each meal. Our office will reach out to him to arrange EGD (follow-up Renae's) and colonoscopy for rectal bleeding. GI will sign off, please recall if questions new symptoms. Supervising Physician Co-Signing Physician Notes Attending attestation I have seen, examined this patient, and agree with the findings and above by our mid-level provider SHAWN Roldan, with the following additions: - Adm with what he describes as his chronic recurrent pancreatitis pain, has known calcifications and documented chronic pancreatitis. No signs of acute on chronic - Has BRBPR 2 days ago and stable Hb, therefore, no concern of acute bleeding - Other etiologies may include constipation and recommend bowel regimen, less likely mesenteric angina, gastroparesis as well as the obvious chronic pancreatitis - Supportive care with IVF, Pain control, no role for endoscopy at this time, given age and presenation outpt examination should be planned - PRN amyyl would also be recommended - Recall GI if needed History of Present Illness Reason for Consultation: Rectal Bleed, alcoholism Requesting Physician: Dr. Davis Attending Physician: Samantha Davis MD History of Present Illness Mr. Raffi Zeng is a 47 yr old male pt of Dr. Dhiraj Myers w a hx of chronic pancreatitis (most recent EUS 2019 w mild chronic panc), increased ETOH intake, Renae's/GERD, DM (on insulin), PE (on Eliquis). He presented to [facility] ED yesterday for abdominal pain and rectal bleeding. He describes his abdominal pain as being present for about 6 months, worse prior to defecation, resolved after defecation. He denies any firm bowel movements but states he has been straining at times to defecate. When he was straining Monday, along with a formed brown bowel movement there was a moderate amt of bright red on the surface of that bowel movement and blood that colored the toilet water red. He had a second formed bowel movement with a small amount of blood. Most recent Eliquis was either Monday or Monday. He has not had any further GI bleeding since Monday. He denies any other NSAID use. CT on arrival w atrophy of the pancreas, calcification consistent with chronic pancreatitis w/o evidence of acute changes. WBC, LFTs, lipase were normal, ETOH level was high at 345 and sodium decreased at 130. Most recent EGD was in 2019: mild gastritis. No hx of prior colonoscopy. Allergies Allergy/AdvReac Type Severity Reaction Status Date / Time No Known Allergies Allergy Verified 06/22/23 23:24 Home Medications Medication Instructions Recorded Confirmed Type pantoprazole 40 mg tablet,delayed 40 mg PO DAILY 01/03/23 07/03/23 History release apixaban 5 mg tablet (Eliquis) 5 mg PO DAILY 06/23/23 07/03/23 History dicyclomine 10 mg capsule 10 mg PO TID PRN abdominal pain 06/25/23 07/03/23 Rx #30 caps Patient History Medical History Abdominal pain Epigastric abdominal pain Pancreatic duct stones Abdominal pain, acute, epigastric Retrosternal chest pain History of pulmonary embolism Alcohol withdrawal Alcoholic ketosis COVID-19 Nausea & vomiting Alcohol abuse Abdominal pain Encounter for pre-operative examination Acute hyperglycemia Encounter for alcohol abuse counseling and surveillance Encounter for tobacco use cessation counseling Alcohol abuse Pancreatitis Neuropathy Hyperglycemia Chest pain Abdominal pain Pulmonary embolism on chronic apixaban Depression Mood disorder Intentional drug overdose Suicidal ideation Suicide attempt Mood disorder Suicidal ideation Lumbar degenerative disc disease Panic disorder Depression History of substance abuse Alcohol abuse (Unknown) H/O acute pancreatitis "recurrent" Renae's esophagus (Unknown) "per EGD 11/23/09 " On 05/31/11 09:06 Martinez Jose wrote "per EGD 11/23/09 " DM type 2 (diabetes mellitus, type 2) Surgical History S/P lumbar fusion L4-S1 2014 H/O esophagogastroduodenoscopy "EGD 11/23/2009- mild gastritis, suspicious for gastroparesis, Z-line i rregular EUS 02/04/2010- mild chronic pancreatitis, pronounced cholesterolosis of gallbladder, no biliary dilation or stones, probable gastroparesis EGD 10/31/2014- gastritis" Family History Father Alcohol abuse Social History Smoking Status: Current every day smoker Tobacco Type: Smokeless Tobacco (Dip or Chew) Second Hand Exposure: No; Do You Dip or Chew Tobacco: Yes; Hx Alcohol Use: Yes Alcohol type: hard liquor Hx Substance Use: No Preferred Language: Russian Communication Ability: Effective Comb Capper Required: No Beliefs That Will Affect Care: None marital status: Current Living Situation: Alone Current Living Situation Comment: home with mom How many Children do You have: 3 Other Information That Helps Us Care for You: No Feels Safe at Home: Yes Safety Concerns: Feels Safe At This Time Assistive Devices: None Review of Systems Review of Systems: ROS: Gen: Denies weakness, fevers, weight loss Eyes: No eye redness, or pain, no recent vision changes Resp: No SOB, no cough Cardio: No palpitations/irregular beats, no chest pain GI: As per HPI, otherwise normal : Denies pain on urination Skin: No jaundice, itching or new rashes Physical Exam Constitutional: WD/WN, vitals as above Eyes: PERRL, conjunctivae normal, anicteric sclerae ENMT: currently chewing tobacco Neck: trachea midline, no thyromegaly Respiratory: normal respiratory effort, lungs clear to auscultation Cardiovascular: RRR, no murmur, no edema Gastrointestinal (Abdomen): Soft, nondistended, no masses moderate pain on palpation of both lower quadrants. No rebound Musculoskeletal: no cyanosis or clubbing, extremities motor strength 5/5 Skin: no rashes, warm and dry Neurologic: PERRL, EOMI, accommodation nl, no face palsy, no dysarthria Psychiatric: A+Ox3, euthymic affect Lymphatic: no cervical or axillary lymphadenopathy Results & Data Vital Signs (Past 12 Hours) Vital Signs Temp Pulse Resp BP Pulse Ox O2 Del Method 07/04/23 07:54 79 07/04/23 06:30 78 20 96/73 L 99 Room Air 07/04/23 06:00 80 19 105/80 99 Room Air 07/04/23 05:30 87 20 109/73 97 Room Air 07/04/23 05:23 105 H 24 103/78 98 Room Air 07/04/23 04:30 98 H 12 97 Room Air 07/04/23 04:00 98 H 14 93/76 L 98 Room Air 07/04/23 03:54 97 H 07/04/23 03:30 99 H 13 104/76 96 Room Air 07/04/23 03:00 95 H 12 104/79 98 Room Air 07/04/23 02:30 91 H 12 108/77 99 Room Air 07/04/23 02:00 94 H 29 H 113/81 97 Room Air 07/04/23 01:30 95 H 13 124/78 98 Room Air 07/04/23 01:00 107 H 23 114/86 98 Room Air 07/04/23 00:30 97 H 13 122/85 99 Room Air 07/04/23 00:00 100 H 16 117/83 95 Room Air 07/03/23 23:54 97 H 24 129/89 98 Room Air 07/03/23 23:53 100 H 07/03/23 22:12 36.4 C L 112 H 19 146/71 H 97 Room Air Laboratory Results WBC 3.7, Hb 14, HCT 40, PLT S205, NA 130, K3.6, CL 96, CO2 19, BUN 7, CR 0.8, glucose 160 T. bili 0.5, AST 38, ALT 40, alk phos 70,lipase 10 Diagnostic Findings CTAP w IV 07/04/23: 1. No evidence for bowel obstruction or significant asymmetric bowel mucosal abnormality. No evidence for intussusception. No diverticulitis. No free intraperitoneal fluid or pneumoperitoneum. 2. Stable atrophy throughout the pancreas, most prominent involving the tail, with similar prominent diffuse dysmorphic calcifications noted. Findings are Most consistent with chronic pancreatitis, similar in appearance. No definite acute peripancreatic fat stranding.
[2023-07-04] MEDS: SODIUM CHLORIDE 0.9% 1,000 ML IV SCH ×2 (08:55→16:19)
[2023-07-04] MEDS: HYDROmorphone INJ 0.5 MG/0.5 ML SYR IV PRN ×4 (08:55→21:17)
[2023-07-04 09:02] LABS: Basophils # (auto) 0.06 K/uL (0.00-0.20); Basophils % (auto) 1.6 %; Eosinophils # (auto) 0.45 K/uL (0.00-0.50); Eosinophils % (auto) 12.1 %; Hematocrit (blood only) 40.2 % (42.0-52.0); Hemoglobin 14.3 g/dl (14.0-18.0); Lymphocytes # (auto) 1.51 K/uL (1.20-3.40); Lymphocytes % (auto) 40.7 %; Mean Corpuscular Hemoglobin 32.4 pg (25.0-34.0); Mean Corpuscular Hgb Conc 35.6 g/dL (32.0-36.0); Mean Platelet Volume 9.2 fL (9.4-12.4); Monocytes # (auto) 0.32 K/uL (0.11-0.59); Monocytes % (auto) 8.6 %; Neutrophils # (auto) 1.37 K/uL (1.40-6.50); Platelet Count 203 K/uL (130-400); RDW Coefficient of Variation 11.5 % (11.5-14.5); RDW Standard Deviation 38.3 fL (36.4-46.3); Red Blood Count 4.42 M/uL (4.70-6.10); White Blood Count 3.71 K/ul (4.8-10.8)
[2023-07-04 09:11] LABS: BUN Creatinine Ratio 9.7 (10-20); Calcium 8.9 mg/dl (8.6-10.3); Creatinine Clr Calc Pharmacy 134.1 ml/min; Est GFR (Non-African American) 116.5 ml/min; Magnesium 1.9 mg/dl (1.7-2.4); Potassium 3.8 mmol/L (3.5-5.1)
[2023-07-04] MEDS: INSULIN ASPART PER UNIT CHARGE SC SCH ×4 (09:27→21:45)
[2023-07-04 10:24] LABS: Estimated Average Glucose 246 mg/dl; Hemoglobin A1C 10.2 % (4.5-5.6)
[2023-07-04] MEDS: PANTOprazole 40 MG in DEXTROSE 5% MINI-B 100 ML IV SCH ×3 (12:07→21:21)
[2023-07-04] MEDS: GABAPENTIN 600 MG TAB PO SCH ×2 (12:21→19:47)
[2023-07-04] MEDS: ONDANSETRON INJ 2 MG/ML 2 ML VIAL IV PRN ×2 (13:42→18:48)
--- NOTE | 2023-07-04 13:50 | Electrocardiogram Report ---
Test Reason : Blood Pressure : / mmHG Vent. Rate : 105 BPM Atrial Rate : 105 BPM P-R Int : 144 ms QRS Dur : 080 ms QT Int : 344 ms P-R-T Axes : 076 073 080 degrees QTc Int : 454 ms Sinus tachycardia Abnormal ECG When compared with ECG of 22-JUN-2023 21:57, No significant change was found Confirmed by Danilo Grimes ([id number]) on 07/04/2023 1:50:23 PM Referred By: REFERRED SELF Confirmed By:Jere Grimes
[2023-07-04 16:44] LABS: Hematocrit (blood only) 43.3 % (42.0-52.0); Hemoglobin 15.2 g/dl (14.0-18.0)
[2023-07-04 23:23] LABS: Hematocrit (blood only) 38.3 % (42.0-52.0); Hemoglobin 13.7 g/dl (14.0-18.0)
[2023-07-05] MEDS: HYDROmorphone INJ 0.5 MG/0.5 ML SYR IV PRN ×6 (01:19→21:57)
[2023-07-05] MEDS: SODIUM CHLORIDE 0.9% 1,000 ML IV SCH ×4 (01:21→23:51)
[2023-07-05] MEDS: GABAPENTIN 600 MG TAB PO SCH ×3 (01:22→17:29)
[2023-07-05] MEDS: PANTOprazole 40 MG in DEXTROSE 5% MINI-B 100 ML IV SCH ×6 (02:15→22:40)
[2023-07-05 02:24] LABS: Basophils # (auto) 0.06 K/uL (0.00-0.20); Basophils % (auto) 1.1 %; Eosinophils % (auto) 9.2 %; Hematocrit (blood only) 38.3 % (42.0-52.0); Hemoglobin 13.5 g/dl (14.0-18.0); Immature Granulocytes # (auto) 0.01 K/uL (0.01-0.20); Immature Granulocytes % (auto) 0.2 %; Lymphocytes # (auto) 1.22 K/uL (1.20-3.40); Lymphocytes % (auto) 22.4 %; Mean Corpuscular Hemoglobin 32.5 pg (25.0-34.0); Mean Corpuscular Hgb Conc 35.2 g/dL (32.0-36.0); Mean Corpuscular Volume 92.3 fL (80.0-100.0); Mean Platelet Volume 8.9 fL (9.4-12.4); Monocytes # (auto) 0.49 K/uL (0.11-0.59); Neutrophils # (auto) 3.16 K/uL (1.40-6.50); Neutrophils % (auto) 58.1 %; Platelet Count 180 K/uL (130-400); RDW Coefficient of Variation 11.5 % (11.5-14.5); RDW Standard Deviation 39.2 fL (36.4-46.3); Red Blood Count 4.15 M/uL (4.70-6.10); White Blood Count 5.44 K/ul (4.8-10.8)
[2023-07-05 02:41] LABS: BUN Creatinine Ratio 7.9 (10-20); Calcium 8.7 mg/dl (8.6-10.3); Est GFR (African American) 134.1 ml/min; Est GFR (Non-African American) 115.7 ml/min; Magnesium 1.7 mg/dl (1.7-2.4); Phosphorus 2.8 mg/dl (2.5-4.9); Potassium 3.8 mmol/L (3.5-5.1)
[2023-07-05] MEDS: THIAMINE HCL 100 MG in SYRINGE 9 ML IV SCH (08:01)
[2023-07-05] MEDS: FOLIC ACID 1 MG TAB PO SCH (08:01)
[2023-07-05] MEDS: INSULIN ASPART PER UNIT CHARGE SC SCH ×4 (08:08→22:39)
[2023-07-05] MEDS: PARoxetine HCL 20 MG TAB PO SCH (13:38)
--- NOTE | 2023-07-05 15:39 | Hospitalist Progress Note ---
Date of Service July 05, 2023 Assessment & Plan (1) Rectal bleed: Plan: 47-year-old male with past medical history significant for chronic alcohol abuse, ongoing alcoholism, chronic pancreatitis, GERD, Renae's esophagus, mood disorder, diabetes insulin requiring, history of PE recurrent on Eliquis, history of chronic pain, history of narcotic abuse, multiple admissions for alcoholism and pancreatitis admitted with abdominal pain and rectal bleed. Rectal bleed Hemoglobin stable at 14.5 Per GI likely related to hemorrhoids, recommending outpt scopes Ongoing alcoholism Continue to hold Eliquis Diet advanced to full liquids IV fluids Protonix drip de-escalated to protonix 40mg BID Alcoholism Monitor for alcohol withdrawal Banana bag IV thiamine and folic acid Gabapentin alcohol withdrawal protocol and IV Ativan as needed Closely monitor for withdrawal Diabetes Appears to not be on medications Insulin sliding-scale Follow blood sugars Follow HbA1c levels-hgba1c 10.2 Consider starting outpt metformin on discharge History of PE. Recurrent Holding Eliquis for above Restart as soon as possible History of GERD and Renae's esophagus Currently on PPI History of chronic pancreatitis Chronic pain Complaining of severe abdominal pain IV Dilaudid as needed for now History of mood disorder Stable DVT prophylaxis SCDs Disposition telemetry floor Admission and Anticipated Discharge Date Admission Date: July 04, 2023 Subjective Pt requesting paxil medication for mood. States he received Ativan and it helped. States he has been receiving dilaudid and it helps his pain. Declining assistance for alcohol cessation, notes he has done rehab multiple times before. Review of Systems Review of Systems: All systems reviewed & are unremarkable except as noted in Subjective Physical Exam Physical Exam: General: Alert, oriented. No acute distress Skin: No noted rashes or bruises Psych: Appropriate mood and affect Neuro: No gross deficits HEENT: NC/AT Chest: Nontender to palpation. CV: RRR, Normal s1, s2. No murmurs appreciated Resp: Breath sounds clear bilaterally, no increased effort of breathing. Abdomen: Soft, tender diffusely, nondistended. Extremities: No edema in lower extremities bilaterally. Results & Data Results & Data Vital Signs (Past 12 Hours) Vital Signs Temp Pulse Pulse Resp BP Pulse Ox O2 Del Method 07/05/23 11:50 36.6 C 103 H 18 125/71 99 Room Air 07/05/23 08:00 85 07/05/23 07:00 36.5 C 77 16 113/64 98 Room Air
[2023-07-06] MEDS: HYDROmorphone INJ 0.5 MG/0.5 ML SYR IV PRN ×3 (02:05→10:05)
[2023-07-06] MEDS: ONDANSETRON INJ 2 MG/ML 2 ML VIAL IV PRN (02:50)
[2023-07-06] MEDS: PANTOprazole 40 MG in DEXTROSE 5% MINI-B 100 ML IV SCH (03:42)
[2023-07-06] MEDS: SODIUM CHLORIDE 0.9% 1,000 ML IV SCH (06:12)
[2023-07-06] MEDS ORDERED: GABAPENTIN 600 MG TAB PO SCH (06:15)
[2023-07-06 06:23] LABS: Basophils # (auto) 0.05 K/uL (0.00-0.20); Basophils % (auto) 1.3 %; Eosinophils # (auto) 0.56 K/uL (0.00-0.50); Eosinophils % (auto) 14.2 %; Hematocrit (blood only) 40.3 % (42.0-52.0); Hemoglobin 14.1 g/dl (14.0-18.0); Lymphocytes # (auto) 1.07 K/uL (1.20-3.40); Lymphocytes % (auto) 27.2 %; Mean Corpuscular Hemoglobin 31.9 pg (25.0-34.0); Mean Corpuscular Volume 91.2 fL (80.0-100.0); Mean Platelet Volume 9.3 fL (9.4-12.4); Monocytes # (auto) 0.35 K/uL (0.11-0.59); Monocytes % (auto) 8.9 %; Neutrophils # (auto) 1.91 K/uL (1.40-6.50); Neutrophils % (auto) 48.4 %; Platelet Count 177 K/uL (130-400); RDW Coefficient of Variation 11.2 % (11.5-14.5); RDW Standard Deviation 37.8 fL (36.4-46.3); Red Blood Count 4.42 M/uL (4.70-6.10); White Blood Count 3.94 K/ul (4.8-10.8)
[2023-07-06 06:42] LABS: Albumin Globulin Ratio 1.4 (0.9-2); Albumin Level 3.4 gm/dl (3.4-5.0); BUN Creatinine Ratio 5.4 (10-20); Bilirubin,Total 0.7 mg/dl (0.2-1.0); Calcium 9.2 mg/dl (8.6-10.3); Creatinine Clr Calc Pharmacy 132.2 ml/min; Est GFR (African American) 125.5 ml/min; Est GFR (Non-African American) 108.3 ml/min; Globulin 2.5 gm/dl (2.5-4.0); Magnesium 1.7 mg/dl (1.7-2.4); Phosphorus 2.9 mg/dl (2.5-4.9); Potassium 4.3 mmol/L (3.5-5.1); Total Protein 5.9 gm/dl (6.0-8.3)
[2023-07-06 07:42] VITALS: RESP 20
[2023-07-06] MEDS: PARoxetine HCL 20 MG TAB PO SCH (08:21)
[2023-07-06] MEDS: FOLIC ACID 1 MG TAB PO SCH (08:21)
[2023-07-06] MEDS: THIAMINE HCL 100 MG in SYRINGE 9 ML IV SCH (08:22)
--- NOTE | 2023-07-06 08:55 | Discharge Summary ---
Discharge Summary Date of Service July 06, 2023 Notes For Next Care Provider Please ensure GI follow up for outpatient colonoscopy and EGD Please start on medications once more for uncontrolled DMII, pt refusing insulin. Encourage alcohol cessation Medication Changes From Visit Started back on Paxil 20mg daily for mood Admission HPI Per Admitting Provider 47-year-old male with past medical significant for chronic alcohol abuse, ongoing alcoholism, chronic pancreatitis, GERD, Renae's esophagus, mood disorder, diabetes insulin requiring, history of PE recurrent on Eliquis, history of chronic pain, history of narcotic abuse, multiple admissions for alcoholism and pancreatitis comes with abdominal pain and rectal bleed. Patient states he had 2 episodes of bloody bowel movements in last 8 hours. Shows a picture of blood in the stools. Also has severe abdominal pain. Ongoing alcoholism. Says drinks 6 beers daily. Denies any chest pain or shortness of breath. No headache. No runny nose or sore throat. No cough. Request for pain medication. Admission Exam Per Admitting Provider General- Not in distress Head- atraumatic Eyes- PERRL ENT- oropharynx clear. Can see tobacco Neck- supple, no JVD. Lungs- clear to auscultation , No wheezing or crackles. Heart- regular rhythm; no murmur, no gallop. Abdomen- normal bowel sounds, soft, diffuse tender. no distension Extremities- no pretibial edema, no erythema Neuro- alert, oriented x 3; PERRL,no facial palsy; no dysarthria; moves extremities. Skin- warm & dry Principal Dx & Hospital Course #1 = Principal Diagnosis (1) Rectal bleed: (2) Lower abdominal pain: (3) Alcohol abuse: (4) Bright red blood per rectum: (5) Acute GI bleeding: (6) Chronic pancreatitis: (7) Alcohol use disorder: Plan 47-year-old male with past medical history significant for chronic alcohol abuse, ongoing alcoholism, chronic pancreatitis, GERD, Renae's esophagus, mood disorder, diabetes insulin requiring, history of PE recurrent on Eliquis, history of chronic pain, history of narcotic abuse, multiple admissions for alcoholism and pancreatitis admitted with abdominal pain and rectal bleed. Rectal bleed Pt with picture of bright red blood in toilet bowl Hemoglobin stable at 14.5 Per GI likely related to hemorrhoids, recommending: -outpatient EGD for Renae's and outpatient colonoscopy for hemorrhoids -prn Hugh Ongoing alcoholism Held Eliquis, resume after discharge Diet advanced and pt tolerated well at discharge IV fluids Protonix drip de-escalated to protonix 40mg BID, continue home ppi daily after discharge. Alcoholism Per pt, he is not ready to quit yet, knows he should. States he has done rehab multiple times in the past. Banana bag IV thiamine and folic acid AWSS protocol Monitored for withdrawal Encourage cessation Diabetes Hgba1c of 10.2 Appears to not be on medications Declining insulin while in the hospital States that the insulin causes him to have low lows Notes he has tried multiple medications with his pcp and many are contraindicated in the setting of pancreatitis Would like to follow up with his pcp for alternatives Adamant that he does not want insulin Close PCP follow up recommended History of PE Recurrent Held Eliquis in the setting of possible GI bleed, resumed on discharge History of GERD and Renae's esophagus Currently on PPI, continue History of chronic pancreatitis Chronic pain Complaining of severe abdominal pain IV Dilaudid prn helped GI follow up, pt currently prescribed pancreatic enzymes, states he forgets to take History of mood disorder Pt requesting re-start of paxil 20mg Discharged with the same PCP followup Discharge Exam General: Alert, oriented. No acute distress Skin: No noted rashes or bruises Psych: Appropriate mood and affect Neuro: No gross deficits HEENT: NC/AT Chest: Nontender to palpation. CV: RRR, Normal s1, s2. No murmurs appreciated Resp: Breath sounds clear bilaterally, no increased effort of breathing. Abdomen: Soft, tender diffusely, nondistended. Extremities: No edema in lower extremities bilaterally. Updated Medication List Medication Instructions Recorded Confirmed Type pantoprazole 40 mg tablet,delayed 40 mg PO DAILY 01/03/23 07/03/23 History release apixaban 5 mg tablet (Eliquis) 5 mg PO DAILY 06/23/23 07/03/23 History dicyclomine 10 mg capsule 10 mg PO TID PRN abdominal pain 06/25/23 07/03/23 Rx #30 caps paroxetine HCl 20 mg tablet 20 mg PO QAM #30 tabs 07/06/23 Rx Hospital Stay Data Consultations 07/04/23 04:35 ED Decision to Admit Stat 07/04/23 07:57 Consult Gastroenterology Routine Diagnostic Imagining Performed 07/04/23 01:44 CT Abd and Pelvis [CT abd pelvis IV con only] Stat Chest X-Ray 07/03/23 22:21 XR chest 1V not portable CLINICAL HISTORY: Chest pain, nonspecific. COMPARISON STUDY: Chest radiograph June 23, 2023. Chest CT August 27, 2022. FINDINGS: Lung volumes are normal. Lungs are clear. There is no pneumothorax or pleural effusion. Cardiac size is normal. Mediastinal contours are normal. There is no evidence for pulmonary edema. IMPRESSION: No acute cardiopulmonary findings. ACT 112: Negative or not required by law. Electronically signed by: Quinton Corrales M.D. 07/04/2023 6:59 AM Abdomen/Pelvis CT 07/04/23 01:44 Exam(s): CT ABDOMEN + PELVIS With Contrast IV Amt: 91 ml optiray 320 EXAM: CT Abdomen and Pelvis With Intravenous Contrast CLINICAL HISTORY: eval for intussusception. TECHNIQUE: Axial computed tomography images of the abdomen and pelvis with intravenous contrast. Automated exposure control was utilized for the study. A dose lowering technique was utilized adhering to the principles of ALARA. CONTRAST: Patient received 91 ml optiray 320 of IV contrast COMPARISON: CT abdomen and pelvis with contrast dated 08/23/2022 FINDINGS: Lung bases: Unremarkable. No mass. No consolidation. ABDOMEN: Liver: Hepatic steatosis. No focal abnormality. Gallbladder and bile ducts: Status post cholecystectomy. No ductal dilation. Pancreas: Stable atrophy throughout the pancreas, most prominent involving the tail, with similar prominent diffuse dysmorphic calcifications noted. No definite acute peripancreatic fat stranding. Spleen: Unremarkable. No splenomegaly. Adrenals: Unremarkable. No mass. Kidneys and ureters: Unremarkable. No solid mass. No hydronephrosis. Stomach and bowel: Stomach is predominantly decompressed with only minimal fluid and gas. No gastric mucosal thickening. No evidence for bowel obstruction or significant asymmetric bowel mucosal abnormality. No evidence for intussusception. No diverticulitis. PELVIS: Appendix: No findings to suggest acute appendicitis. Bladder: Unremarkable. No mass. Reproductive: Unremarkable as visualized. ABDOMEN and PELVIS: Intraperitoneal space: Unremarkable. No free air. No significant fluid collection. Bones/joints: Postsurgical changes with posterior fusion and laminectomy defects from L4-S1. No acute osseous abnormality. No dislocation. Soft tissues: Unremarkable. Vasculature: Unremarkable. No abdominal aortic aneurysm. Lymph nodes: Unremarkable. No enlarged lymph nodes. IMPRESSION: 1. No evidence for bowel obstruction or significant asymmetric bowel mucosal abnormality. No evidence for intussusception. No diverticulitis. No free intraperitoneal fluid or pneumoperitoneum. 2. Stable atrophy throughout the pancreas, most prominent involving the tail, with similar prominent diffuse dysmorphic calcifications noted. Findings are Most consistent with chronic pancreatitis, similar in appearance. No definite acute peripancreatic fat stranding. Electronically signed by: Vitaliy Reich MD 07/04/23 04:02 AM Discharge Instructions Given to Patient (Per Discharging Provider) Mr. Zeng, You were admitted with chronic pancreatitis related to your alcohol use. We are recommending that you consider rehab one more time to help you stop drinking. You were seen by gastroenterology and they believe that the blood your saw with your stools was related to hemorrhoids. They are recommending follow up with the [facility] scopes as an outpatient. They also recommend that you start taking the medication Bentyl that you have at home to help with your abdominal pain. Your diabetes is currently not controlled. You're declining insulin and state that you will be following up soon with your primary care provider as you have tried different medications and they did not help. In the setting of your chronic pancreatitis, please discuss further with your primary care provider. You asked that we start you on paxil to help with your mood and we did so yesterday. We discharged you with a prescription and we are recommending follow up with your primary care provider. It was a pleasure taking care of you while you were here. Total Time Total Time Spent Total Time Spent (In Minutes): > 30 minutes
[2023-07-06] MEDS ORDERED: PANTOprazole 40 MG TAB PO SCH (09:00)
[2023-07-06] MEDS: INSULIN ASPART PER UNIT CHARGE SC SCH (09:04)
[2023-07-06 11:39] VITALS: BP 111/73; PULSE 68; TEMP 97.5; O2SAT 100
[2023-07-07] MEDS ORDERED: GABAPENTIN 600 MG TAB PO SCH (18:15)
== END 2023-07-06 14:03 | disposition home or self-care (01) | DRG 394 ==
LOC: ED 21:54 → EDINP 07-04 06:06 → SUATTDRO 07-04 06:06 → 2S 07-04 07:57

== ENCOUNTER 2023-07-17 00:01 | Inpatient (IN) ==
--- OUTSIDE RECORDS SUMMARY | 2023-07-17 00:04 | External Medical Summary | Summary of Care ---
Author Name Unknown Organization [facility] Address [address] [facility] [place] [address] Phone [phone] Care Team Providers Care Legal Document Specialist Name Role Phone Beth Myers DO Primary Care Provider [phone] Reason for Visit * Reason Comments NEW PATIENT * Evaluate & Treat - Unlimited Visits (Within 30 days (routine)) - Authorized Specialty Diagnoses / Procedures Referred By Controbyn t Referred To Contact Urology Diagnoses Peyronie's disease Beth Myers DO [address] [facility] [address] Referral ID Status Reason Start Date Expiration Date Visits Requested Visits Authorized [id number] Authorized Specialty Services Required 09/21/[phone] Encounter Details Date Type Department Care Team (Late st Contact Info) Description 06/05/2023 3:45 PM EDT Office Visit Urology Frannie Dickerson [address] [place] [address] Kemar Hagan MD [address] [place] [address] Peyronie's disease* Allergies No known active allergiesdocumented as of this encounter (statuses as of 07/12/2023) Medications Medication Sig Dispensed Refills Start Date End Date Status Blood Glucose Monitoring Suppl (Opp.ioUCH ULTRA SYSTEM) W/DEVICE KIT Use as directed 2 times a day. 1 Kit 0 06/28/2016 Active glipiZIDE ER 5 MG Oral Tablet Extended Release 24 Hour (glipiZIDE XL)Indications:Type 2 diabetes, HbA1C goal < 8% (HCC) Take 1 Tablet by mouth in the morning. 30 minutes before a meal.. 30 Tablet 09/21/2022 Active hydrOXYzine Pamoate 25 MG Oral Capsule (Vistaril)Indicatio ns:DEVANTE (generalized anxiety disorder) Take 1 Capsule by mouth 2 times a day as needed for Anxiety. 20 Capsule 1 09/21/2022 Active Apixaban 5 MG Oral Tablet (Eliquis) Take 1 Tablet by mouth in the morning and 1 Tablet before bedtime. 60 Tablet 5 10/07/2022 Active Creon 00106-10322 UNIT Oral Capsule Delayed Release Particles (Pancrelipase (Ald-Oavx-Tlhj)) take 1 cap orally three times a [...] 01/05/2023 Active Daily-Chriss Multivitamin Oral TabletIndications:p ack wxzg=203 Take one tablet daily in the morning. [...] days 30 Tablet 0 01/05/2023 Active Pen [place] 32G X 4 MM Use as directed. 100 Each 5 02/24/2023 Active OneTouch Delica Plus [id number] s:Type 2 diabetes, HbA1C goal < 8% [...] as of this encounter (statuses as of 07/12/2023) Active Problems Problem Noted Date Diagnosed Date [...] as of this encounter (statuses as of 07/12/2023) Resolved Problems Problem Noted Date Diagnosed Date [...] as of this encounter (statuses as of 07/12/2023) Immunizations Name Administration Dates Next Due Pneumococcal [...] as of this encounter Progress Notes * Kemar Hagan MD - 06/05/2023 3:57 PM EDT [id number] PCP: BETH MYERS [address] [place] [address] [phone] Raffi Zeng is a 47 year old male, who presents in referral for evaluation of dorsal penile curvature. He notes some time ago some history of trauma but no curvature. He notes this was acute in onset. He notes difficulties with penetration since, has not tried intercourse. He notes waisting at the site of curvature. 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 Peyronie's disease: Presented May 2023. Started in November 2022. Dorsal curvature inhibiting penetration. Current Outpatient Medications Medication Sig Dispense Refill Blood Glucose Monitoring Suppl (SharePlow SYSTEM) W/DEVICE KIT Use as directed 2 times a day. 1 Kit 0 glipiZIDE ER 5 MG Oral Tablet Extended Release 24 Hour (glipiZIDE XL) Take 1 Tablet by mouth in themorning. 30 minutes before a meal.. 30 Tablet 5 hydrOXYzine Pamoate 25 MG Oral Capsule (Vistaril) Take 1 Capsule by mouth 2 times a day as needed for Anxiety. 20 Capsule 1 Apixaban 5 MG Oral Tablet (Eliquis) Take 1 Tablet by mouth in the morning and 1 Tablet before bedtime. 60 Tablet 5 Creon 30101-92809 UNIT Oral Capsule Delayed Release Particles (Pancrelipase (Xyr-Eujn-Lcqc)) take 1cap orally three times a day administer with meals and/or snacks 90 Capsule 0 Insulin Glargine Solostar 100 UNIT/ML Subcutaneous Solution Pen-injector (Lantus SoloStar) inject subcutaneously 15 units at bedtime. 15 mL 5 Georgina GoodmanTouch Verio w/Device Kit Use to check blood sugar four times a day 1 Kit 0 Glucose Blood In Vitro Strip USE UP TO 4 TIMES DAILY 100 Strip 11 Alcohol Wipes 70 % Pad USe to help check blood sugar 100 Each 5 Albuterol Sulfate HFA 108 (90 Base) MCG/ACT Inhalation Aerosol Solution Inhale 2 Puffs by mouth every 6 hours as needed for Shortness of Breath. 18 g 5 Amitriptyline HCl 50 MG Oral Tablet (Elavil) Take 1 Tablet by mouth at bedtime. 30 Tablet 5 Pantoprazole Sodium 40 MG Oral Tablet Delayed Release (Protonix) Take 1 Tablet by mouth in the morning. 90 Tablet 1 Folic Acid 1 MG Oral Tablet take one tablet (1 mg )orally daily in the morning 30 Tablet 0 Gabapentin 600 MG Oral Tablet (Neurontin) take 1 tablet (600 mg) orally every 12 hours for 2 days 4Tablet 0 Daily-Chriss Multivitamin Oral Tablet Take one tablet daily in the morning. 100 Tablet 0 oxyCODONE HCl 5 MG Oral Tablet (Oxy IR) take 1 tablet (5 mg) orally every 8 hours As Needed for pain (scale score 7-10) 9 Tablet 0 B-1 100 MG Oral Tablet take 1 tablet by mouth once daily in the morning for 15 days 30 Tablet 0 Pen Rice 32G X 4 MM Use as directed. 100 Each 5 OneTouch Delica Plus [id number] Use as directed 4 times a day as needed for Hyperglycemia (high sugar). 100 Each 5 traMADol HCl 50 MG Oral Tablet (Ultram) take one tablet orally once daily As Needed for pain 10 Tablet 0 Ondansetron 4 MG Oral Tablet Disintegrating (Zofran) Take 1 tablet (4 mg) by mouth every 6 hours AsNeeded for nausea and vomiting 10 Tablet 0 No current facility-administered medications for this visit. Review of patient's allergies indicates: No Known Allergies Social History: Social History Tobacco Use Smoking status: Never Smokeless tobacco: Current Types: Chew Tobacco comments: 1 can/day Substance Use Topics Alcohol use: Yes Alcohol/week: 10.0 standard drinks of alcohol Types: 10 12 oz of beer per week Comment: 10 drinks/week no ETOH 04/17. did rehab around 2000. rehab again 2015 ETOH Vaping/E-Cigarette Use Vaping/E-Cigarette Use Never User Vaping/E-Cigarette Substances Nicotine No Other No Flavoring No THC No Cannabidiol (CBD) No Vaping/E-Cigarette Devices Disposable No Pre-filled or Refillable Cartridge No Refillable Tank No Pre-filled Pod No Family History Problem Relation Age of Onset No Past Hx Mother Mental Disorder Father depression/alcohol abuse Mental Disorder Aunt (Unspecified) Manic depression No Past Hx Sister No Past Hx Sister No Past Hx Brother No Past Hx Son No Past Hx Son Past Surgical History: Procedure Laterality Date EGD, FLEXIBLE, DIAGNOSTIC 10/31/2014 Gastritis/ESOPHAGOGASTRODUODENOSCOPY (EGD), FLEXIBLE, TRANSORAL, DIAGNOSTIC performed by Homero Mullen MD at ENDOSCOPY [facility] EGD, FLEXIBLE, DIAGNOSTIC 01/24/2017 mild gastritis, gastric polyps/[facility] EGD, FLEXIBLE, DIAGNOSTIC 03/05/2018 normal/[facility] EGD, FLEXIBLE, DIAGNOSTIC 09/18/2018 mild gastritis / [facility] EGD, FLEXIBLE, W/BIOPSY 11/23/09 bxs --stomach --normal path--esophagus--Barretts--repeat in one yr EGD, W/ENDOSCOPIC 02/04/10 referr to surgeon LAPAROSCOPY; CHOLECYSTECTOMY 04/02/2010 04/02/2010 - laparoscopic cholecystectomy with intraoperative cholangiogram - Dr. Martinez MISCELLANEOUS ORDER ([facility] ONLY) 2014 back surg -?[facility] REMOV KENRICK EVITA JOSÉ MIGUEL ACC DEV,WITH 08/21/13 Aport removal left chest wall 08/21/13 Dr. Butts and Fay Devi PA-C in office REMOVAL OF APPENDIX 1985 Appendectomy UPPER ENDOSCOPY GI REFERRAL OP 2001 VENOUS ACCESS DEVICE FLUSH 03/07/10 Aport placement subclavian vein 03/07/10 [facility], Dr. Cueto Past Medical History: Diagnosis Date Acute pancreatitis r/t alcohol recurrent Alcohol abuse, unspecified sober since 2011 Allergic rhinitis due to other allergen Back pain Goes to a pain clinic RENAE'S ESOPHAGUS 11/23/09 bxs --stomach --normal path--esophagus--Barretts repeat in one yr Bipolar depression ([facility]) 01/12/2016 Depressive disorder, not elsewhere classified Disorder of intervertebral disc Esophageal reflux Insomnia, unspecified Other anxiety states Pulmonary embolism and infarction ([facility]) 2014 Tobacco use disorder Patient Active Problem List Diagnosis Code Sciatica M54.30 Esophageal reflux K21.9 GENERALIZED ANXIETY DIS F41.1 Tobacco use disorder F17.200 Chronic sinusitis J32.9 Alcohol abuse, in remission F10.11 Other allergic rhinitis J30.89 Disorder of intervertebral disc M51.9 Major depressive disorder F32.9 Insomnia G47.00 Type 2 diabetes, HbA1C goal < 8% ([facility]) E11.9 Pulmonary embolism and infarction ([facility]) I26.99 TERMINATED MEDICATION USAGE AGREEMENT [id number] ADHD, hyperactive-impulsive type F90.1 Suicide attempt ([facility]) T14.91XA Chronic pain syndrome G89.4 Bipolar depression ([facility]) F31.9 History of alcohol abuse F10.11 Other chronic pancreatitis ([facility]) K86.1 Type 2 diabetes mellitus with hyperglycemia ([facility]) E11.65 Panic disorder (episodic paroxysmal anxiety) F41.0 Renae's esophagus without dysplasia K22.70 Acute deep vein thrombosis (DVT) of calf muscle vein ([facility]) I82.469 Chest pain R07.9 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 Constitutional: General: He is not in acute distress. Appearance: Normal appearance. He is not toxic-appearing. HENT: Head: Normocephalic and atraumatic. Right Ear: External ear normal. Left Ear: External ear normal. Nose: Nose normal. Mouth/Throat: Mouth: Mucous membranes are moist. Cardiovascular: Pulses: Normal pulses. Pulmonary: Effort: Pulmonary effort is normal. No respiratory distress. Abdominal: Palpations: Abdomen is soft. Tenderness: There is no abdominal tenderness. Genitourinary: Penis: Normal and circumcised. Testes: Normal. Comments: Palpable plaque dorsally, 2 x 6 cm Musculoskeletal: Cervical back: Normal range of motion and neck supple. Lymphadenopathy: Cervical: No cervical adenopathy. Skin: Coloration: Skin is not cyanotic or pale. Neurological: Mental Status: He is alert and oriented to person, place, and time. Motor: No weakness. Gait: Gait normal. Psychiatric: Attention and Perception: Attention normal. Mood and Affect: Mood and affect normal. Impression/Plan: 47 yo male with Peyronie's disease. Findings reviewed with patient. Ideally he would be able to stop Eliquis prior to consideration of intervention with Xiaflex. Risks and benefits and pathophysiology of Peyronie's disease are reviewed. Patient will try stretching exercises at home and return to the office in 6 months for re-evaluation with home photos. Hopefully, patient's therapy for his history of DVT will be complete at this point rendering injectable therapy safer. Kemar Hagan MD 3:57 PM 06/05/2023 documented in this encounter Nursing Notes * Amanda Shah LPN - 06/05/2023 3:35 PM EDT Chief Complaint Patient presents with NEW PATIENT Pt presents as a new pt for peyronie's. Pt states he noticed a curvature in his penis about 5-6 months ago, curvature is straight up. Pt stated he has pain when he has an erection and tried to bend the penis. Pt states it was a very sudden occurrence, not gradual at all. documented in this encounter Plan of Treatment Upcoming Encounters Date Type Department Care Team (Late st Contact Info) Description 10/31/2023 2:15 PM EDT Office Visit Urology, [facility] [address] [facility] [place] [address] Kemar Hagan MD 27 [facility] [address] [place] [address] Scheduled Referrals Name Type Priority Associated Diagnoses Orde r Schedule UROLOGY REFERRAL OP Referral Within 30 da ys (routine) Peyronie's disease Ordered: 09/21/2022 Health Maintenance Due Date Last Done Comments [...] 10/03/2023 10/03/2022, 12/, 04/12/2022, Additional history exists Colorectal Cancer Screening [...] as of this encounter Visit Diagnoses Diagnosis Peyronie's disease- Primary documented in this encounter Care Teams Legal Document Specialist Relationship Specialty Start Date End Date Beth Myers DO [address] [place] [address] PCP - General Family Medicine 01/24/17 documented as of this encounter
--- OUTSIDE RECORDS SUMMARY | 2023-07-17 00:05 | External Medical Summary | Summary of Care ---
Author Name Unknown Organization [facility] Address [address] [facility] [place] [address] Phone [phone] Care Team Providers Care Auto Technician Mechanic Name Role Phone Dhiraj Myers DO Primary Care Provider [phone] Reason for Visit * Reason Onset Date Comments Hospital Follow-Up 07/04/2023 Encounter Details Date Type Department Care Team (Late st Contact Info) Description 07/04/2023 Telephone Gastroenterology, [facility] [address] [place] [address] Ino Alvares CRNP [address] [place] [address] Hospital Follow-Up Allergies No known active allergiesdocumented as of this encounter (statuses as of 07/04/2023) Medications Medication Sig Dispensed Refills Start Date End Date Status Blood Glucose Monitoring Suppl ([employer] ULTRA SYSTEM) W/DEVICE KIT Use as directed 2 times a day. 1 Kit 0 06/28/2016 Active glipiZIDE ER 5 MG Oral Tablet Extended Release 24 Hour (glipiZIDE XL)Indications:Type 2 diabetes, HbA1C goal < 8% ([facility]) Take 1 Tablet by mouth in the [...] bedtime. 60 Tablet 5 10/07/2022 Active Creon 32147-70408 UNIT Oral Capsule Delayed Release Particles (Pancrelipase (Zaq-Jazp-Kfxq)) take 1 cap orally three times a day administer with meals and/or snacks 90 Capsule 0 12/21/2022 Active Insulin Glargine Solostar 100 UNIT/ML Subcutaneous Solution Pen-injector (Lantus SoloStar)Indication s:Type 2 diabetes, HbA1C goal < 8% (HCC) inject subcutaneously 15 units at bedtime. 15 mL 5 12/27/2022 Active OneTouch Verio w/Device KitIndications:Type 2 [...] 01/05/2023 Active Daily-Chriss Multivitamin Oral TabletIndications:p ack umuj=344 Take one tablet daily in the morning. [...] days 30 Tablet 0 01/05/2023 Active Pen [place] 32G X 4 MM Use as directed. 100 Each 02/24/2023 Active OneTouch Delica Plus [id number] s:Type 2 diabetes, HbA1C goal < 8% ([facility]) Use as directed 4 times a day [...] as of this encounter (statuses as of 07/04/2023) Active Problems Problem Noted Date Diagnosed Date [...] as of this encounter (statuses as of 07/04/2023) Resolved Problems Problem Noted Date Diagnosed Date [...] as of this encounter (statuses as of 07/04/2023) Immunizations Name Administration Dates Next Due Pneumococcal [...] money to buy more. Never true 09/21/19 Within the past 12 months, t he [...] encounter Miscellaneous Notes * Telephone Encounter - Ino Alvares CRNP - 07/04/2023 4:04 PM EST EGD for hx of Renae's Colonoscopy for rectal bleeding (seen at [facility] 07/03/23). Hb 14. Can be next available - OK to wait a few months. documented in this encounter Plan of Treatment Upcoming Encounters Date Type Department Care Team (Late st Contact Info) Description 10/31/2023 2:15 PM EDT Office Visit Urology, [facility] [address] [facility] [place] [id number] Kemar Hagan MD 27 [facility] [address] [place] [address] Scheduled Orders Name Type Priority Associated Diagnoses Orde r Schedule EGD, FLEXIBLE, DIAGNOSTIC Procedures Routine History of Renae's esophagus Ordered: 07/04/2023 COLONOSCOPY, DIAGNOSTIC (RECTUM) Procedures Routine Rectal bleeding Ordered: 07/04/2023 Health Maintenance Due Date Last Done Comments [...] as of this encounter Visit Diagnoses Diagnosis History of Renae's esophagus- Primary Rectal bleeding Hemorrhage of rectum and anus documented in this encounter Care Teams Auto Technician Mechanic Relationship Specialty Start Date End Date Dhiraj Myers DO [address] [place] [address] PCP - General Family Medicine 01/24/17 documented as of this encounter
--- OUTSIDE RECORDS SUMMARY | 2023-07-17 00:05 | External Medical Summary | Summary of Care ---
Author Name Unknown Organization [facility] Address [address] [facility] [place] [address] Phone [phone] Care Team Providers Care Geometry Professor Name Role Phone Dhiraj Myers DO Primary Care Provider [phone] Reason for Visit * Reason Onset Date Comments Hospital Follow-Up 07/04/2023 Encounter Details Date Type Department Care Team (Late st Contact Info) Description 07/04/2023 Telephone Gastroenterology, [facility] [address] [place] [address] Ino Alvares CRNP [address] [place] [address] Hospital Follow-Up Allergies No known active allergiesdocumented as of this encounter (statuses as of 07/11/2023) Medications Medication Sig Dispensed Refills Start Date End Date Status Blood Glucose Monitoring Suppl ([employer] ULTRA SYSTEM) W/DEVICE KIT Use as directed 2 times a day. 1 Kit 0 06/28/2016 Active glipiZIDE ER 5 MG Oral Tablet Extended Release 24 Hour (glipiZIDE XL)Indications:Type 2 diabetes, HbA1C goal < 8% ([facility]) Take 1 Tablet by mouth in the [...] bedtime. 60 Tablet 5 10/07/2022 Active Creon 14512-79445 UNIT Oral Capsule Delayed Release Particles (Pancrelipase (Zbb-Uwzv-Ywxt)) take 1 cap orally three times a [...] 01/05/2023 Active Daily-Chriss Multivitamin Oral TabletIndications:p ack xxhq=789 Take one tablet daily in the morning. [...] days 30 Tablet 0 01/05/2023 Active Pen [place] 32G X 4 MM Use as directed. 100 Each 02/24/2023 Active OneTouch Delica Plus [id number] s:Type 2 diabetes, HbA1C goal < 8% ([facility]) Use as directed 4 times a day [...] as of this encounter (statuses as of 07/11/2023) Active Problems Problem Noted Date Diagnosed Date [...] as of this encounter (statuses as of 07/11/2023) Resolved Problems Problem Noted Date Diagnosed Date [...] as of this encounter (statuses as of 07/11/2023) Immunizations Name Administration Dates Next Due Pneumococcal [...] 04/17. did rehab around 2000. rehab again 2016 ETOH PHQ-2 Answer Date Recorded PHQ-2 Score [...] encounter Miscellaneous Notes * Telephone Encounter - Jerome Watson OSA - 07/11/2023 11:17 AM EST LMcell asking pt to return call. * Telephone Encounter - Kaden Ashley OSA - 07/04/2023 4:34 PM EST LMOM for pt to call back to scheduled I was going to offer 2 * Telephone Encounter - Ino Alvares CRNP - 07/04/2023 4:04 PM EST EGD for hx of Renae's Colonoscopy for rectal bleeding (seen at [facility] 07/03/23). Hb 14. Can be next available - OK to wait a few months. documented in this encounter Plan of Treatment Upcoming Encounters Date Type Department Care Team (Late st Contact Info) Description 10/31/2023 2:15 PM EDT Office Visit Urology, [facility] [address] [facility] [place] [address] Kemar Hagan MD 27 [facility] [address] [place] [address] Scheduled Orders Name [...] anus documented in this encounter Care Teams Geometry Professor Relationship Specialty Start Date End Date Dhiraj Myers DO [address] [place] [address] PCP - General Family Medicine 01/24/17 documented as of this encounter
--- OUTSIDE RECORDS SUMMARY | 2023-07-17 00:05 | External Medical Summary | Summary of Care ---
Author Name Unknown Organization [facility] Address [address] [facility] [place] [address] Phone [phone] Care Team Providers Care Riding Teacher Name Role Phone Dhiraj Myers DO Primary Care Provider [phone] Reason for Visit * Reason Onset Date Comments Hospital Follow-Up 07/04/2023 Encounter Details Date Type Department Care Team (Late st Contact Info) Description 07/04/2023 Telephone Gastroenterology, [facility] [address] [place] [address] Ino Alvares CRNP [address] [place] [address] Hospital Follow-Up Allergies No known active allergiesdocumented as of this encounter (statuses as of 07/04/2023) Medications Medication Sig Dispensed Refills Start Date End Date Status Blood Glucose Monitoring Suppl ([employer] ULTRA SYSTEM) W/DEVICE KIT Use as directed 2 times a day. 1 Kit 0 06/28/2016 Active glipiZIDE ER 5 MG Oral Tablet Extended Release 24 Hour (glipiZIDE XL)Indications:Type 2 diabetes, HbA1C goal < 8% ([facility]) Take 1 Tablet by mouth [...] bedtime. 60 Tablet 5 10/07/2022 Active Creon 95319-11287 UNIT Oral Capsule Delayed Release Particles (Pancrelipase (Nmw-Ofsb-Okjv)) take 1 cap orally three times a [...] 01/05/2023 Active Daily-Chriss Multivitamin Oral TabletIndications:p ack bxmg=862 Take one tablet daily in the morning. [...] days 30 Tablet 0 01/05/2023 Active Pen [place] 32G X 4 MM Use as directed. 100 Each 02/24/2023 Active OneTouch Delica Plus [id number] s:Type 2 diabetes, HbA1C goal < 8% ([facility]) Use as directed 4 times a day [...] encounter Miscellaneous Notes * Telephone Encounter - Kaden Ashley OSA - 07/04/2023 4:34 PM EST LMOM for pt to call back to scheduled I was going to offer 08/08 * Telephone Encounter - Ino Alvares CRNP - 07/04/2023 4:04 PM EST EGD for hx of Renae's Colonoscopy for rectal bleeding (seen at [facility] 07/03/23). Hb 14. Can be next available - OK to wait a few months. documented in this encounter Plan of Treatment Upcoming Encounters Date Type Department Care Team (Late st Contact Info) Description 10/31/2023 2:15 PM EDT Office Visit Urology, [facility] [address] [facility] [place] [id number] Kemar Hagan MD 27 [facility] [address] [place] [address] Scheduled [...] anus documented in this encounter Care Teams Riding Teacher Relationship Specialty Start Date End Date Dhiraj Myers DO [address] [place] [address] PCP - General Family Medicine 01/24/17 documented as of this encounter
--- NOTE | 2023-07-17 00:15 | Emergency Department Note ---
Impression & Plan Intractable abdominal pain, Alcohol abuse, Chest pain, Bright red blood per rectum ED Provider Note CHIEF COMPLAINT: Blood in stool, abdominal pain, chest pain HISTORY OF PRESENTING ILLNESS: This 47-year-old male patient presents to the emergency department for evaluation of blood in his stool, abdominal pain, chest pain. The patient has had multiple visits to the ER for similar complaints. Symptoms started earlier today and have gotten progressively worse. Bright red blood is in his stool and in the toilet bowl. Has been having harder more painful stools for constipation. He has a history of pancreatitis and it feels similar to his previous episodes. Has not taken anything for the symptoms. He drank a 6 pack of beer today which is about what he normally drinks. He states that the symptoms today were a little different because of the severe abdominal pain he had after the blood in his stool. He is scheduled for an EGD and Colonoscopy in 1-2 weeks per patient. REVIEW OF SYSTEMS: See HPI for pertinent positives and pertinent negatives. ALLERGIES: NKDA MEDICATIONS: See below PAST MEDICAL HISTORY: See below PHYSICAL EXAM: VITALS: Vitals are noted on the nurse's note and reviewed by myself. GENERAL: Non toxic, no acute distress, non-diaphoretic. SKIN: Capillary refill <2 sec. EYES: PERRLA. EOMI. Conjunctivae without injection, sclerae without icterus. NOSE: Patent without discharge. MOUTH: Mucous membranes moist. Uvula midline. Airway patent. NECK: Supple without nuchal rigidity. HEART: Regular rate and rhythm without murmurs gallops or rubs. LUNGS: Clear to auscultation bilaterally without wheezes, rales or rhonchi. No retractions or accessory muscle use. ABDOMEN: Positive bowel sounds x 4. Normal tympanic percussion. Soft, diffusely tender to palpation with increased tenderness on the right side of the abdomen. No masses or organomegaly. Estrella sign negative. No guarding or rebound tenderness. RECTAL EXAM: Permission to perform the exam. Male echocardiographer present for the exam. No external lesions or hemorrhoids noted. Normal sphincter tone. Internal hemorrhoids are enlarged. No masses, tears, fistulas, fissures, or abscess noted. Stool is brown and Hemoccult negative. MUSCULOSKELETAL: No gross musculoskeletal defects. NEURO: Patient was alert and oriented. No focal neurological deficits. DIFFERENTIAL DIAGNOSIS: Differential diagnosis includes hepatitis, pancreatitis, cholecystitis, cholelithiasis, appendicitis, kidney stone, pyelonephritis, UTI, gastritis, gastroenteritis, mesenteric adenitis, obstruction, constipation, hernia, abdominal abscess, perforation, diverticulitis, IBD, ischemic colitis, abdominal aortic aneurysm, testicular torsion, prostatitis, angina, [place], pericarditis, myocarditis, aortic dissection, pleurisy, pneumothorax, PE, pneumonia, pneumomediastinum, costochondritis, musculoskeletal, bronchitis, URI, or others. ED COURSE AND MEDICAL DECISION MAKING: MONITOR: Continuous monitoring manager: Order was placed for continuous monitoring manager. Patient was placed on the monitoring manager and continuous pulse ox. Patient was noted to be in normal sinus rhythm at an initial rate of 90 bpm per my interpretation. EKG: EKG was interpreted by myself as normal sinus rhythm at 89 bpm with no acute ST or T wave changes and no significant change from his previous EKG. MEDICATIONS GIVEN: 1 L normal saline solution bolus, Tylenol 1000 mg IV, Dilaudid 0.5 mg IV x 2, Zofran 4 mg IV, Phenergan 25 mg IM, Toradol 10 mg IV. INTERPRETATION OF LABS: I interpreted the labs with full lab results as below in the lab section of this note. CBC without leukocytosis, anemia, or thrombocytopenia. Coags were normal. Sodium 132 and glucose 277, but CMP otherwise normal. Lipase low at 10. Magnesium normal. High-sensitivity troponin normal. Urinalysis with 2+ glucose, but otherwise negative. Medical alcohol level 316.9. INTERPRETATION OF IMAGING: Chest x-ray per my interpretation without acute cardiopulmonary etiology. Radiology report still pending. Additional imaging studies were interpreted by myself and read by radiology as per the imaging section of this note. CT scan of the abdomen pelvis with IV contrast showed possible gastroenteritis without evidence of bowel obstruction. Nonvisualization of the appendix, but no inflammation to suggest appendicitis. Status post cholecystectomy. Calcifications within the pancreas with atrophic changes most compatible with the sequela of pancreatitis. Otherwise unremarkable. EXTERNAL RECORDS REVIEWED: The patient's multiple previous admissions were reviewed. CONSULTATIONS: On-call hospitalist [facility] SUMMARY: I examined the patient. The patient presents to the emergency department for complaints of abdominal pain, chest pain, and rectal bleeding. The patient showed me a picture of bright red blood in the toilet bowl around soft brown stool. Rectal exam with internal hemorrhoids that are enlarged, but Hemoccult negative stool. An IV lock was placed and labs were drawn. The patient required multiple doses of pain medication as above. EKG and troponin were negative and I do not suspect ACS. CT scan of the abdomen pelvis as above. The patient was unable to give a stool sample while in the emergency department. His medical alcohol level was 316.9. The patient is scheduled for outpatient EGD and colonoscopy in the next 1 to 2 weeks per patient. I discussed discharge with outpatient follow-up, but the patient does not feel that he can be discharged home due to his abdominal pain and rectal bleeding. I spoke with the on-call hospitalist who agreed to admit the patient for further management. Please refer to their dictation for further details. The patient's care was transferred in stable condition. DIAGNOSIS: Intractable abdominal pain Chest pain Rectal bleeding Alcohol Abuse Past Med/Surg History Medical History Abdominal pain Epigastric abdominal pain Pancreatic duct stones Abdominal pain, acute, epigastric Retrosternal chest pain History of pulmonary embolism Alcohol withdrawal Alcoholic ketosis COVID-19 Nausea & vomiting Alcohol abuse Abdominal pain Encounter for pre-operative examination Acute hyperglycemia Encounter for alcohol abuse counseling and surveillance Encounter for tobacco use cessation counseling Alcohol abuse Pancreatitis Neuropathy Hyperglycemia Chest pain Abdominal pain Pulmonary embolism on chronic apixaban Depression Mood disorder Intentional drug overdose Suicidal ideation Suicide attempt Mood disorder Suicidal ideation Lumbar degenerative disc disease Panic disorder Depression History of substance abuse Alcohol abuse (Unknown) H/O acute pancreatitis "recurrent" Renae's esophagus (Unknown) "per EGD 11/23/09 " On 05/31/11 09:06 Martinez Jose wrote "per EGD 11/23/09 " DM type 2 (diabetes mellitus, type 2) Surgical History S/P lumbar fusion L4-S1 2014 H/O esophagogastroduodenoscopy "EGD 11/23/2009- mild gastritis, suspicious for gastroparesis, Z-line irregular EUS 02/04/2010- mild chronic pancreatitis, pronounced cholesterolosis of gallbladder, no biliary dilation or stones, probable gastroparesis EGD 10/31/2014- gastritis" Family History Father Alcohol abuse Social History Smoking Status: Current every day smoker Tobacco Type: Smokeless Tobacco (Dip or Chew) Second Hand Exposure: No; Do You Dip or Chew Tobacco: Yes; Hx Alcohol Use: Yes Alcohol type: hard liquor Hx Substance Use: No Preferred Language: Bulgarian Communication Ability: Effective Flare Worker Required: No Beliefs That Will Affect Care: None marital status: Current Living Situation: Alone Current Living Situation Comment: home with mom How many Children do You have: 3 Feels Safe at Home: Yes Assistive Devices: None Allergies Allergies Allergy/AdvReac Type Severity Reaction Status Date / Time No Known Allergies Allergy Verified 06/22/23 23:24 Home Meds Home Medications Medication Instructions Recorded Confirmed pantoprazole 40 mg tablet,delayed 40 mg PO DAILY 01/03/23 07/17/23 release apixaban 5 mg tablet (Eliquis) 5 mg PO DAILY 06/23/23 07/17/23 Previous Rx's Medication Instructions Recorded dicyclomine 10 mg capsule 10 mg PO TID PRN abdominal pain 06/25/23 #30 caps paroxetine HCl 20 mg tablet 20 mg PO QAM #30 tabs 07/06/23 Results & Data (ED) Vital Signs Vital Signs - 24 hr 07/17/23 00:01 07/17/23 00:07 07/17/23 00:42 Temperature 36.7 C Temperature Source Temporal Artery Scan Pulse Rate 90 Pulse Rate [Finger] 89 Respiratory Rate 18 17 Respiratory Depth Normal Blood Pressure 132/82 Blood Pressure [Right Arm] 108/77 Blood Pressure Mean 98 Blood Pressure Mean [Right Arm] 87 Pulse Oximetry 100 97 99 Oxygen Delivery Method Room Air Room Air Sepsis Recent Fever Within 48 Hours No Sepsis New/Unexplained Change in Mental Status No Sepsis Action Taken by Nursing No Action Required 07/17/23 02:01 07/17/23 05:41 07/17/23 05:53 Temperature Temperature Source Pulse Rate 93 H Pulse Rate [Finger] 92 H 92 H Respiratory Rate 15 15 Respiratory Depth Blood Pressure Blood Pressure [Right Arm] 101/75 104/63 Blood Pressure Mean Blood Pressure Mean [Right Arm] 83 76 Pulse Oximetry 95 98 Oxygen Delivery Method Room Air Sepsis Recent Fever Within 48 Hours Sepsis New/Unexplained Change in Mental Status Sepsis Action Taken by Nursing Laboratory Data 07/17/23 00:31 07/17/23 02:11 Lab Results 07/17/23 07/17/23 07/17/23 Range/Units 00:31 01:00 02:11 WBC 6.26 (4.8-10.8) K/ul RBC 4.80 (4.70-6.10) M/uL Hgb 15.3 (14.0-18.0) g/dl Hct 43.2 (42.0-52.0) % MCV 90.0 (80.0-100.0) fL MCH 31.9 (25.0-34.0) pg MCHC 35.4 (32.0-36.0) g/dL RDW Std Deviation 37.6 (36.4-46.3) fL RDW Coeff of Gucci 11.5 (11.5-14.5) % Plt Count 202 (130-400) K/uL MPV 9.3 L (9.4-12.4) fL Immature Gran % (Auto) 0.3 % Neut % (Auto) 50.3 % Lymph % (Auto) 32.6 % [place] % (Auto) 8.3 % Eos % (Auto) 7.7 % Baso % (Auto) 0.8 % Neut # (Auto) 3.15 (1.40-6.50) K/uL Lymph # (Auto) 2.04 (1.20-3.40) K/uL [place] # (Auto) 0.52 (0.11-0.59) K/uL Eos # (Auto) 0.48 (0.00-0.50) K/uL Baso # (Auto) 0.05 (0.00-0.20) K/uL Immature Gran # (Auto) 0.02 (0.01-0.20) K/uL PT Cancelled 11.3 INR Cancelled 1.0 APTT Cancelled 28 PTT Ratio Cancelled 1.0 Sodium Cancelled 132 L Potassium Cancelled 3.8 Chloride Cancelled 98 Carbon Dioxide Cancelled 25 Anion Gap Cancelled 9 BUN Cancelled 4 L Creatinine Cancelled 0.76 Est Cr Clr Drug Dosing Cancelled 129.0 Est GFR ( Amer) Cancelled 124.2 Est GFR (Non-Af Amer) Cancelled 107.1 BUN/Creatinine Ratio Cancelled 5.3 L Glucose Cancelled 277 H Calcium Cancelled 9.1 Magnesium Cancelled 1.9 Total Bilirubin Cancelled 0.6 AST Cancelled 23 ALT Cancelled 19 Alkaline Phosphatase Cancelled 60 Troponin I High Sens Cancelled 2.3 Total Protein Cancelled 6.7 Albumin Cancelled 3.9 Globulin Cancelled 2.8 Albumin/Globulin Ratio Cancelled 1.4 Lipase Cancelled 10 L Urine Color Yellow Urine Appearance Clear (Clear) Urine pH 5.0 (4.5-7.5) Ur Specific [place] 1.006 (1.000-1.030) Urine Protein Negative (Negative) Urine Glucose (UA) 2+ H (Negative) Urine Ketones Negative (Negative) Urine Blood Negative (Negative) Urine Nitrite Negative (Negative) Urine Bilirubin Negative (Negative) Urine Urobilinogen Negative (Negative) Ur Leukocyte Esterase Negative (Negative) Ethyl Alcohol mg/dL 316.9 H (<10.0) mg/dl Administered Medications Discontinued Medications Hydromorphone HCl (Hydromorphone Inj 0.5 Mg/0.5 Ml Syr) 0.5 mg IV NOW STA Stop: 07/17/23 01:59 Last Admin: 07/17/23 02:02 Dose: 0.5 mg Documented By: ACC Hydromorphone HCl (Hydromorphone Inj 0.5 Mg/0.5 Ml Syr) 0.5 mg IV NOW STA Stop: 07/17/23 03:01 Last Admin: 07/17/23 03:05 Dose: 0.5 mg Documented By: ACC Sodium Chloride (Nss) 1,000 mls @ 999 mls/hr IV .Q1H1M STA Stop: 07/17/23 01:42 Last Infusion: 07/17/23 02:08 Dose: Infused Documented By: Admin: 07/17/23 01:02 Dose: 999 mls/hr Documented By: ACC Acetaminophen (Ofirmev) 1,000 mg in 100 mls @ 400 mls/hr IV NOW STA Stop: 07/17/23 00:56 Last Infusion: 07/17/23 02:08 Dose: Infused Documented By: Admin: 07/17/23 01:01 Dose: 400 mls/hr Documented By: ACC Ioversol (Optiray 320 500ml) 100 ml IV ONCE ONE Stop: 07/17/23 01:34 Last Admin: 07/17/23 01:33 Dose: 80 ml Documented By: LUANN Ketorolac Tromethamine (Ketorolac Tromethamine 15 Mg/Ml Vial) 10 mg IV NOW ONE Stop: 07/17/23 05:04 Last Admin: 07/17/23 05:37 Dose: 10 mg Documented By: MAHIN Ondansetron HCl (Ondansetron Inj 2 Mg/Ml 2 Ml Vial) 4 mg IV NOW STA Stop: 07/17/23 01:59 Last Admin: 07/17/23 02:02 Dose: 4 mg Documented By: ZANDRA Promethazine HCl (Promethazine Hcl Inj 25 Mg/Ml 1 Ml Vial) 25 mg IM NOW STA Stop: 07/17/23 02:32 Last Admin: 07/17/23 02:35 Dose: 25 mg Documented By: ACC Imaging Data Radiologist's Impression: Abdomen/Pelvis CT 07/17/23 00:43 Exam(s): CT ABDOMEN + PELVIS With Contrast IV Amt: 80 ML OPTIRAY 320 EXAM: CT Abdomen and Pelvis With Intravenous Contrast CLINICAL HISTORY: Reason for exam: abdominal pain. TECHNIQUE: Axial computed tomography images of the abdomen and pelvis with intravenous contrast. CTDI is 16.5 mGy and DLP is 828.94 mGy-cm. Automated exposure control was utilized for the study. A dose lowering technique was utilized adhering to the principles of ALARA. CONTRAST: Patient received 80 ML OPTIRAY 320 of IV contrast COMPARISON: 07/04/2023. FINDINGS: Lung bases: Unremarkable. No mass. No consolidation. ABDOMEN: Liver: Unremarkable. No mass. Gallbladder and bile ducts: Status post cholecystectomy. No ductal dilation. Pancreas: Calcifications of the pancreas, more significant at the pancreatic head consistent with sequela of chronic pancreatitis. Atrophy throughout the remainder of the body and tail of the pancreas with mild distention of the pancreatic duct. Spleen: Unremarkable. No splenomegaly. Adrenals: Unremarkable. No mass. Kidneys and ureters: Unremarkable. No solid mass. No hydronephrosis. Stomach and bowel: Mild thickening of the vaz of the proximal stomach, cannot exclude gastritis. Mild distention of the proximal small bowel loops with borderline thickening of the wall. There is fluid within the small bowel and right colon. PELVIS: Appendix: Distinct appendix not seen with no inflammatory process by the cecum. Bladder: Over distended urinary bladder. Reproductive: Unremarkable as visualized. Normal sized prostate. ABDOMEN and PELVIS: Intraperitoneal space: Unremarkable. No free air. No significant fluid collection. Bones/joints: Postoperative changes with posterior fusion from L4-S1. Mild degenerative disease of bilateral SI joints and hips. No acute fracture or subluxation. Soft tissues: Unremarkable. Vasculature: Unremarkable. No abdominal aortic aneurysm. Lymph nodes: Unremarkable. No enlarged lymph nodes. IMPRESSION: 1. Possible gastroenteritis. No bowel obstruction. Nonvisualized appendix with no inflammation to suggest appendicitis. 2. Status post cholecystectomy. Calcifications within the pancreas with atrophic changes most compatible sequela of pancreatitis. Remainder of abdominal viscera are unremarkable. Electronically signed by: Isabel Weiner MD 07/17/23 04:15 AM Discharge Plan Visit Data Chief Complaint: Rectal Bleed Stated Complaint: BLOOD IN STOOL,ABDOMINAL PAIN,CHEST PAIN ED Provider: Martina Oates ED Midlevel Provider: Clau Chu Discharge Problem: Intractable abdominal pain, Alcohol abuse, Chest pain, Bright red blood per rectum Patient Disposition: Admitted As Inpatient Condition: Good Forms Stand Alone Forms: [facility] Prescriptions Prescriptions: No Action paroxetine HCl 20 mg Tablet 20 mg PO QAM Qty: 30 0RF pantoprazole 40 mg tablet,delayed release (DR/EC) 40 mg PO DAILY Eliquis 5 mg tablet 5 mg PO DAILY Rx Instructions: px takes it once daily instead of recommended bid dosing for recurrent dvt pe hx dicyclomine 10 mg capsule 10 mg PO TID PRN (Reason: abdominal pain) Qty: 30 0RF Referrals Referrals: Dhiraj Myers DO [Primary Care Provider] - Discharge Problem: Chest pain Qualifiers: Chest pain type: unspecified Qualified Code(s): R07.9 - Chest pain, unspecified
[2023-07-17] MEDS ORDERED: SODIUM CHLORIDE 0.9% 1,000 ML IV STA (00:42)
[2023-07-17] MEDS ORDERED: ACETAMINOPHEN 1,000 MG/100 ML VIAL IV STA ×2 (00:42→07:44)
[2023-07-17 01:10] LABS: Basophils # (auto) 0.05 K/uL (0.00-0.20); Basophils % (auto) 0.8 %; Eosinophils # (auto) 0.48 K/uL (0.00-0.50); Eosinophils % (auto) 7.7 %; Hematocrit (blood only) 43.2 % (42.0-52.0); Hemoglobin 15.3 g/dl (14.0-18.0); Immature Granulocytes # (auto) 0.02 K/uL (0.01-0.20); Immature Granulocytes % (auto) 0.3 %; Lymphocytes # (auto) 2.04 K/uL (1.20-3.40); Lymphocytes % (auto) 32.6 %; Mean Corpuscular Hemoglobin 31.9 pg (25.0-34.0); Mean Corpuscular Hgb Conc 35.4 g/dL (32.0-36.0); Mean Platelet Volume 9.3 fL (9.4-12.4); Monocytes # (auto) 0.52 K/uL (0.11-0.59); Monocytes % (auto) 8.3 %; Neutrophils # (auto) 3.15 K/uL (1.40-6.50); Neutrophils % (auto) 50.3 %; Platelet Count 202 K/uL (130-400); RDW Coefficient of Variation 11.5 % (11.5-14.5); RDW Standard Deviation 37.6 fL (36.4-46.3); White Blood Count 6.26 K/ul (4.8-10.8)
[2023-07-17 01:19] LABS: Appearance Urine Clear (Clear); Bilirubin Urine Negative (Negative); Blood Urine Negative (Negative); Color Urine Yellow; Glucose Urine UA 2+ (Negative); Ketones Urine Negative (Negative); Leukocyte Esterase Urine Negative (Negative); Nitrite Urine Negative (Negative); Protein Urine Negative (Negative); Specific Gravity Urine 1.006 (1.000-1.030); Urobilinogen Urine Negative (Negative)
[2023-07-17] MEDS ORDERED: OPTIRAY 320 500ml IV ONE (01:33)
[2023-07-17] MEDS ORDERED: HYDROmorphone INJ 0.5 MG/0.5 ML SYR IV STA ×2 (01:58→03:00)
[2023-07-17] MEDS ORDERED: ONDANSETRON INJ 2 MG/ML 2 ML VIAL IV STA (01:58)
[2023-07-17] MEDS ORDERED: PROMETHAZINE HCL INJ 25 MG/ML 1 ML VIAL IM STA (02:31)
[2023-07-17 02:48] LABS: Albumin Globulin Ratio 1.4 (0.9-2); Albumin Level 3.9 gm/dl (3.4-5.0); BUN Creatinine Ratio 5.3 (10-20); Bilirubin,Total 0.6 mg/dl (0.2-1.0); Calcium 9.1 mg/dl (8.6-10.3); Est GFR (African American) 124.2 ml/min; Est GFR (Non-African American) 107.1 ml/min; Globulin 2.8 gm/dl (2.5-4.0); Magnesium 1.9 mg/dl (1.7-2.4); Potassium 3.8 mmol/L (3.5-5.1); Total Protein 6.7 gm/dl (6.0-8.3)
[2023-07-17 02:54] LABS: Troponin I High Sensitivity 2.3 pg/ml (0-20)
[2023-07-17 02:59] LABS: Partial Thromboplastin Time 28 Seconds (21-31); Prothrombin Time 11.3 Seconds (9.0-12.0)
--- NOTE | 2023-07-17 04:16 | CT Scan Report ---
Exam(s): CT ABDOMEN + PELVIS With Contrast IV Amt: 80 ML OPTIRAY 320 EXAM: CT Abdomen and Pelvis With Intravenous Contrast CLINICAL HISTORY: Reason for exam: abdominal pain. TECHNIQUE: Axial computed tomography images of the abdomen and pelvis with intravenous contrast. CTDI is 16.5 mGy and DLP is 828.94 mGy-cm. Automated exposure control was utilized for the study. A dose lowering technique was utilized adhering to the principles of ALARA. CONTRAST: Patient received 80 ML OPTIRAY 320 of IV contrast COMPARISON: 07/04/2023. FINDINGS: Lung bases: Unremarkable. No mass. No consolidation. ABDOMEN: Liver: Unremarkable. No mass. Gallbladder and bile ducts: Status post cholecystectomy. No ductal dilation. Pancreas: Calcifications of the pancreas, more significant at the pancreatic head consistent with sequela of chronic pancreatitis. Atrophy throughout the remainder of the body and tail of the pancreas with mild distention of the pancreatic duct. Spleen: Unremarkable. No splenomegaly. Adrenals: Unremarkable. No mass. Kidneys and ureters: Unremarkable. No solid mass. No hydronephrosis. Stomach and bowel: Mild thickening of the vaz of the proximal stomach, cannot exclude gastritis. Mild distention of the proximal small bowel loops with borderline thickening of the wall. There is fluid within the small bowel and right colon. PELVIS: Appendix: Distinct appendix not seen with no inflammatory process by the cecum. Bladder: Over distended urinary bladder. Reproductive: Unremarkable as visualized. Normal sized prostate. ABDOMEN and PELVIS: Intraperitoneal space: Unremarkable. No free air. No significant fluid collection. Bones/joints: Postoperative changes with posterior fusion from L4-S1. Mild degenerative disease of bilateral SI joints and hips. No acute fracture or subluxation. Soft tissues: Unremarkable. Vasculature: Unremarkable. No abdominal aortic aneurysm. Lymph nodes: Unremarkable. No enlarged lymph nodes. IMPRESSION: 1. Possible gastroenteritis. No bowel obstruction. Nonvisualized appendix with no inflammation to suggest appendicitis. 2. Status post cholecystectomy. Calcifications within the pancreas with atrophic changes most compatible sequela of pancreatitis. Remainder of abdominal viscera are unremarkable. Electronically signed by: Isabel Weiner MD 07/17/23 04:15 AM
[2023-07-17] MEDS ORDERED: KETOROLAC TROMETHAMINE 15 MG/ML VIAL IV ONE (05:03)
--- NOTE | 2023-07-17 07:14 | XRay Report ---
XR chest 1V portable CLINICAL HISTORY: Atypical chest pain. COMPARISON STUDY: Chest radiograph July 03, [address] August 27, 2022. FINDINGS: Lung volumes are normal. Lungs are clear. There is no pneumothorax or pleural effusion. Car diac size is normal. Mediastinal contours are normal. There is no evidence for pulmonary edema. IMPRESSION: No acute cardiopulmonary findings. ACT 112: Negative or not required by law. Electronically signed by: Quinton Corrales M.D. 07/17/2023 7:13 AM
[2023-07-17] MEDS ORDERED: ACETAMINOPHEN 1000 MG/100 ML IV IV ONE (07:47)
--- NOTE | 2023-07-17 08:17 | History & Physical Report ---
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 Rectal bleed Similar admissions recently Plan for EGD and colonoscopy as outpatient Hemoglobin stable N.p.o. IV Protonix twice daily IV fluids GI consult Abdominal pain Ongoing alcoholism Chronic pancreatitis Pain control Alcoholism says drinking 8 beers daily Alcohol withdrawal protocol with gabapentin and IV Ativan as needed P.o. thiamine and folic acid Close monitor History of recurrent PE Holding Eliquis as patient having GI bleed Diabetes says not taking medications Insulin sliding scale we will monitor. Depression on paroxetine DVT prophylaxis SCDs Disposition med/telemetry Full code History of Present Illness Chief Complaint: Rectal bleed, abdominal pain and ongoing alcoholism Primary Care Provider: Dhiraj Myers DO 47-year-old male with past medical significant for chronic alcohol abuse, ongoin g alcoholism, chronic pancreatitis, GERD, Renae's esophagus, mood disorder, diabetes insulin requiring, history of PE recurrent on Eliquis, history of chronic pain, history of narcotic abuse, multiple admissions for alcoholism and pancreatitis comes with abdominal pain and rectal bleed. Shows photograph of rectal bleed. Also complains severe abdominal pain. Some nausea. On and off chest pains. No shortness of breath. No headache. Says has some diarrhea. Currently hemodynamically stable. Allergies Allergy/AdvReac Type Severity Reaction Status Date / Time No Known Allergies Allergy Verified 06/22/23 23:24 Home Medications Medication Instructions Recorded Confirmed Type pantoprazole 40 mg tablet,delayed 40 mg PO DAILY 01/03/23 07/17/23 History release apixaban 5 mg tablet (Eliquis) 5 mg PO DAILY 06/23/23 07/17/23 History dicyclomine 10 mg capsule 10 mg PO TID PRN abdominal pain 06/25/23 07/17/23 Rx #30 caps paroxetine HCl 20 mg tablet 20 mg PO QAM #30 tabs 07/06/23 07/17/23 Rx Past Med/Surg History Medical History Abdominal pain Epigastric abdominal pain Pancreatic duct stones Abdominal pain, acute, epigastric Retrosternal chest pain History of pulmonary embolism Alcohol withdrawal Alcoholic ketosis COVID-19 Nausea & vomiting Alcohol abuse Abdominal pain Encounter for pre-operative examination Acute hyperglycemia Encounter for alcohol abuse counseling and surveillance Encounter for tobacco use cessation counseling Alcohol abuse Pancreatitis Neuropathy Hyperglycemia Chest pain Abdominal pain Pulmonary embolism on chronic apixaban Depression Mood disorder Intentional drug overdose Suicidal ideation Suicide attempt Mood disorder Suicidal ideation Lumbar degenerative disc disease Panic disorder Depression History of substance abuse Alcohol abuse (Unknown) H/O acute pancreatitis "recurrent" Renae's esophagus (Unknown) "per EGD 11/23/09 " On 05/31/11 09:06 Martinez Jose wrote "per EGD 11/23/09 " DM type 2 (diabetes mellitus, type 2) Surgical History S/P lumbar fusion L4-S1 2014 H/O esophagogastroduodenoscopy "EGD 11/23/2009- mild gastritis, suspicious for gastroparesis, Z-line irregular EUS 02/04/2010- mild chronic pancreatitis, pronounced cholesterolosis of gallbl adder, no biliary dilation or stones, probable gastroparesis EGD 10/31/2014- gastritis" Family History Father Alcohol abuse Social History Smoking Status: Current every day smoker Tobacco Type: Smokeless Tobacco (Dip or Chew) Second Hand Exposure: No; Do You Dip or Chew Tobacco: Yes; Hx Alcohol Use: Yes Alcohol type: hard liquor Hx Substance Use: No Preferred Language: Congolese Communication Ability: Effective Security Developer Required: No Beliefs That Will Affect Care: None marital status: Current Living Situation: Alone Current Living Situation Comment: home with mom How many Children do You have: 3 Feels Safe at Home: Yes Assistive Devices: None Review of Systems Review of Systems: All systems reviewed & are unremarkable except as noted in HPI & below Physical Exam Physical Exam: General- Not in distress Head- atraumatic Eyes- PERRL. ENT- oropharynx clear Neck- supple, no JVD. Lungs- clear to auscultation no wheezing or crackles Heart- regular rhythm; no murmur, no gallop. Abdomen- normal bowel sounds, soft, diffuse tenderness, guarding present, no distension. Extremities- no pretibial edema, no erythema seen. Neuro- alert, oriented x 3; PERRL, no facial palsy; no dysarthria; moves extremities. Skin- warm & dry Results & Data Results & Data Vital Signs (Past 12 Hours) Vital Signs Temp Pulse Pulse Resp BP BP Pulse Ox 07/17/23 08:08 93 H 07/17/23 07:54 97/57 L 07/17/23 07:54 75 7 L 94 07/17/23 07:50 83/64 L 07/17/23 07:50 89 16 96 07/17/23 07:45 80 7 L 94 07/17/23 07:30 89 16 07/17/23 07:15 89 9 L 07/17/23 07:00 82 7 L 96 07/17/23 06:45 89 15 96 07/17/23 06:30 90 8 L 97 07/17/23 06:15 98 H 14 96 07/17/23 06:00 87 13 95 07/17/23 06:00 99/66 L 07/17/23 05:53 93 H 07/17/23 05:45 99 H 13 96 07/17/23 05:43 96 H 17 97 07/17/23 05:43 104/63 07/17/23 05:41 92 H 15 104/63 98 07/17/23 02:01 92 H 15 101/75 95 07/17/23 00:42 99 07/17/23 00:07 36.7 C 90 17 132/82 97 07/17/23 00:01 89 18 108/77 100 O2 Del Method 07/17/23 08:08 07/17/23 07:54 07/17/23 07:54 07/17/23 07:50 07/17/23 07:50 07/17/23 07:45 07/17/23 07:30 07/17/23 07:15 07/17/23 07:00 07/17/23 06:45 07/17/23 06:30 07/17/23 06:15 07/17/23 06:00 07/17/23 06:00 07/17/23 05:53 07/17/23 05:45 07/17/23 05:43 07/17/23 05:43 07/17/23 05:41 07/17/23 02:01 Room Air 07/17/23 00:42 Room Air 07/17/23 00:07 Room Air 07/17/23 00:01 Diagnostic Findings Laboratory Results WBC 6.26 K/ul (4.8-10.8) 07/17/23 00:31 RBC 4.80 M/uL (4.70-6.10) 07/17/23 00:31 Hgb 15.3 g/dl (14.0-18.0) 07/17/23 00:31 Hct 43.2 % (42.0-52.0) 07/17/23 00:31 MCV 90.0 fL (80.0-100.0) 07/17/23 00:31 MCH 31.9 pg (25.0-34.0) 07/17/23 00:31 MCHC 35.4 g/dL (32.0-36.0) 07/17/23 00:31 RDW Std Deviation 37.6 fL (36.4-46.3) 07/17/23 00:31 RDW Coeff of Gucci 11.5 % (11.5-14.5) 07/17/23 00:31 Plt Count 202 K/uL (130-400) 07/17/23 00:31 MPV 9.3 fL (9.4-12.4) L 07/17/23 00:31 Immature Gran % (Auto) 0.3 % 07/17/23 00:31 Neut % (Auto) 50.3 % 07/17/23 00:31 Lymph % (Auto) 32.6 % 07/17/23 00:31 [place] % (Auto) 8.3 % 07/17/23 00:31 Eos % (Auto) 7.7 % 07/17/23 00:31 Baso % (Auto) 0.8 % 07/17/23 00:31 Neut # (Auto) 3.15 K/uL (1.40-6.50) 07/17/23 00:31 Lymph # (Auto) 2.04 K/uL (1.20-3.40) 07/17/23 00:31 [place] # (Auto) 0.52 K/uL (0.11-0.59) 07/17/23 00:31 Eos # (Auto) 0.48 K/uL (0.00-0.50) 07/17/23 00:31 Baso # (Auto) 0.05 K/uL (0.00-0.20) 07/17/23 00:31 Immature Gran # (Auto) 0.02 K/uL (0.01-0.20) 07/17/23 00:31 PT 11.3 Seconds (9.0-12.0) 07/17/23 02:11 INR 1.0 (0.9-1.1) 07/17/23 02:11 APTT 28 Seconds (21-31) 07/17/23 02:11 PTT Ratio 1.0 07/17/23 02:11 Sodium 132 mmol/L (136-145) L 07/17/23 02:11 Potassium 3.8 mmol/L (3.5-5.1) 07/17/23 02:11 Chloride 98 mmol/L (98-107) 07/17/23 02:11 Carbon Dioxide 25 mmol/L (21-32) 07/17/23 02:11 Anion Gap 9 (3-11) 07/17/23 02:11 BUN 4 mg/dl (6-23) L 07/17/23 02:11 Creatinine 0.76 mg/dl (0.6-1.4) 07/17/23 02:11 Est Cr Clr Drug Dosing 129.0 ml/min 07/17/23 02:11 Est GFR ( Amer) 124.2 ml/min 07/17/23 02:11 Est GFR (Non-Af Amer) 107.1 ml/min 07/17/23 02:11 BUN/Creatinine Ratio 5.3 (10-20) L 07/17/23 02:11 Glucose 277 mg/dl (70-99(Fasting)) H 07/17/23 02:11 Calcium 9.1 mg/dl (8.6-10.3) 07/17/23 02:11 Magnesium 1.9 mg/dl (1.7-2.4) 07/17/23 02:11 Total Bilirubin 0.6 mg/dl (0.2-1.0) 07/17/23 02:11 AST 23 U/L (13-39) 07/17/23 02:11 ALT 19 U/L (7-52) 07/17/23 02:11 Alkaline Phosphatase 60 U/L (34-104) 07/17/23 02:11 Troponin I High Sens 2.3 pg/ml (0-20) 07/17/23 02:11 Total Protein 6.7 gm/dl (6.0-8.3) 07/17/23 02:11 Albumin 3.9 gm/dl (3.4-5.0) 07/17/23 02:11 Globulin 2.8 gm/dl (2.5-4.0) 07/17/23 02:11 Albumin/Globulin Ratio 1.4 (0.9-2) 07/17/23 02:11 Lipase 10 U/L (11-82) L 07/17/23 02:11 Urine Color Yellow 07/17/23 01:00 Urine Appearance Clear (Clear) 07/17/23 01:00 Urine pH 5.0 (4.5-7.5) 07/17/23 01:00 Ur Specific [place] 1.006 (1.000-1.030) 07/17/23 01:00 Urine Protein Negative (Negative) 07/17/23 01:00 Urine Glucose (UA) 2+ (Negative) H 07/17/23 01:00 Urine Ketones Negative (Negative) 07/17/23 01:00 Urine Blood Negative (Negative) 07/17/23 01:00 Urine Nitrite Negative (Negative) 07/17/23 01:00 Urine Bilirubin Negative (Negative) 07/17/23 01:00 Urine Urobilinogen Negative (Negative) 07/17/23 01:00 Ur Leukocyte Esterase Negative (Negative) 07/17/23 01:00 Ethyl Alcohol mg/dL 316.9 mg/dl (<10.0) H 07/17/23 00:31 Impressions Abdomen/Pelvis CT 07/17/23 00:43 Exam(s): CT ABDOMEN + PELVIS With Contrast IV Amt: 80 ML OPTIRAY 320 EXAM: CT Abdomen and Pelvis With Intravenous Contrast CLINICAL HISTORY: Reason for exam: abdominal pain. TECHNIQUE: Axial computed tomography images of the abdomen and pelvis with intravenous contrast. CTDI is 16.5 mGy and DLP is 828.94 mGy-cm. Automated exposure control was utilized for the study. A dose lowering technique was utilized adhering to the principles of ALARA. CONTRAST: Patient received 80 ML OPTIRAY 320 of IV contrast COMPARISON: 07/04/2023. FINDINGS: Lung bases: Unremarkable. No mass. No consolidation. ABDOMEN: Liver: Unremarkable. No mass. Gallbladder and bile ducts: Status post cholecystectomy. No ductal dilation. Pancreas: Calcifications of the pancreas, more significant at the pancreatic head consistent with sequela of chronic pancreatitis. Atrophy throughout the remainder of the body and tail of the pancreas with mild distention of the pancreatic duct. Spleen: Unremarkable. No splenomegaly. Adrenals: Unremarkable. No mass. Kidneys and ureters: Unremarkable. No solid mass. No hydronephrosis. Stomach and bowel: Mild thickening of the vaz of the proximal stomach, cannot exclude gastritis. Mild distention of the proximal small bowel loops with borderline thickening of the wall. There is fluid within the small bowel and right colon. PELVIS: Appendix: Distinct appendix not seen with no inflammatory process by the cecum. Bladder: Over distended urinary bladder. Reproductive: Unremarkable as visualized. Normal sized prostate. ABDOMEN and PELVIS: Intraperitoneal space: Unremarkable. No free air. No significant fluid collection. Bones/joints: Postoperative changes with posterior fusion from L4-S1. Mild degenerative disease of bilateral SI joints and hips. No acute fracture or subluxation. Soft tissues: Unremarkable. Vasculature: Unremarkable. No abdominal aortic aneurysm. Lymph nodes: Unremarkable. No enlarged lymph nodes. IMPRESSION: 1. Possible gastroenteritis. No bowel obstruction. Nonvisualized appendix with no inflammation to suggest appendicitis. 2. Status post cholecystectomy. Calcifications within the pancreas with atrophic changes most compatible sequela of pancreatitis. Remainder of abdominal viscera are unremarkable. Electronically signed by: Isabel Weiner MD 07/17/23 04:15 AM Chest X-Ray 07/17/23 00:43 XR chest 1V portable CLINICAL HISTORY: Atypical chest pain. COMPARISON STUDY: Chest radiograph July 03, [address] August 27, 2022. FINDINGS: Lung volumes are normal. Lungs are clear. There is no pneumothorax or pleural effusion. Cardiac size is normal. Mediastinal contours are normal. There is no evidence for pulmonary edema. IMPRESSION: No acute cardiopulmonary findings. ACT 112: Negative or not required by law. Electronically signed by: Quinton Corrales M.D. 07/17/2023 7:13 AM ECG Additional Comments: ECG. Normal sinus rhythm rate of 99. No significant change was found. Code Status & VTE Plan VTE Prophylaxis Plan VTE Prophylaxis will be ordered: Yes
[2023-07-17 09:03] LABS: Hematocrit (blood only) 37.3 % (42.0-52.0)
[2023-07-17] MEDS ORDERED: LORazepam 1 MG in SYRINGE 0.5 ML IV PRN (09:17)
[2023-07-17] MEDS ORDERED: NITROGLYCERIN SL 0.4 MG/TAB TAB SL PRN (09:17)
[2023-07-17] MEDS ORDERED: DEXTROSE 50% 50 ML SYRINGE IV PRN (09:17)
[2023-07-17] MEDS ORDERED: GLUCOSE 40% GEL 15 GM TUBE PO PRN (09:17)
[2023-07-17] MEDS ORDERED: DICYCLOMINE HCL 10 MG CAP PO PRN (09:17)
[2023-07-17] MEDS ORDERED: LORazepam 3 MG in SYRINGE 1.5 ML IV PRN (09:17)
[2023-07-17] MEDS ORDERED: LORazepam 2 MG in SYRINGE 1 ML IV PRN (09:17)
[2023-07-17] MEDS ORDERED: GABAPENTIN 600 MG TAB PO ONE (09:17)
[2023-07-17] MEDS ORDERED: GLUCAGON FOR INJ 1 MG VIAL SQ PRN (09:17)
[2023-07-17] MEDS ORDERED: CARBOHYDRATES FOR HYPOGLYCEMIA PO PRN (09:17)
[2023-07-17] MEDS ORDERED: Ativan IV Alcohol Withdrawal--Active Protocol IV PRN (09:17)
[2023-07-17] MEDS ORDERED: ACETAMINOPHEN 325 MG TAB PO PRN (09:17)
[2023-07-17] MEDS ORDERED: PANTOprazole 40 MG in SYRINGE 0 ML IV SCH (09:17)
[2023-07-17] MEDS ORDERED: GABAPENTIN 1200MG ALCOHOL WITHDRAWAL LOAD PO STA (09:17)
[2023-07-17] MEDS ORDERED: HYDROmorphone INJ 0.5 MG/0.5 ML SYR IV PRN (09:17)
[2023-07-17] MEDS ORDERED: GLUCOSE 10 TAB/TUBE PO PRN (09:17)
--- NOTE | 2023-07-17 09:32 | Gastrointestinal Consultation ---
Date of Consultation July 17, 2023 Assessment & Plan (1) Bright red blood per rectum: 47 year old male with history of ongoing ETOH abuse, chronic pancreatitis presenting with rectal bleeding, chronic unchanged abd pain. He provides an image of a formed brown stool with fresh blood discoloring the t oilet bowl. Suspect outlet bleeding: DDX discussed including hemorrhoidal, fissure, diverticular vs other - May eat a low fat diet as tolerated - ETOH withdrawal protocol - Avoid straining, constipation, diarrhea - If develops diarrhea, check stool culture - Trend H&H - Monitor and document GI output - Transfuse PRN per primary team - Continue fiber - Continue OP pancreas enzyme - OP EGD/EUS - OP colonoscopy Recall GI as needed. Thank you for allowing us to participate in the care of this patient. Please call with any acute changes, questions or concerns. Please see addendum below with additional recommendation from my supervising physician. Supervising Physician Co-Signing Physician Notes I have personally seen and examined the patient with SHAWN Ray. Her note reflects my exam and findings. I agree with her impression and plan. Recommend outpatient colonoscopy. Colton Moreland MD History of Present Illness Reason for Consultation: rectal bleeding Requesting Physician: Karlos Attending Physician: Loly Everett MD History of Present Illness 47 year old male with history of chronic pancreatitis, increased ETOH intake, Renae's/GERD, DM (on insulin), PE (on Eliquis) admitted through the ED with rectal bleeding - GI asked to evaluated. Pt was seen and evaluated, chart reviewed. Notes that he was in his typical state of health (chronic abd pain, unchanged) but presented to the ED for an episode of rectal bleeding. He notes he saw this x 2. He provided a phot of a formed brown BM with BRB coating the stool and discoloring the toilet water. He denies any diarrhea. No black stools. No UGI symptoms denies vomiting, coffee ground emesis or hematemesis. Chronic unchanged abd pain, requesting additional narcotic analgesia. He started using ETOH daily again maybe a month ago. Suggests at least 10 beers daily. ETOH level elevated on admission HGB 14 --> 13 BUN 4 Tbili 0.6 AST 23 ALT 19 ALKP 60 Lipase 10 CTAP 2022: 1. Possible gastroenteritis. No bowel obstruction. Nonvisualized appendix with no inflammation to suggest appendicitis. 2. Status post cholecystectomy. Calcifications within the pancreas with atrophic changes most compatible sequela of pancreatitis. Remainder of abdominal viscera are unremarkable. Allergies Allergy/AdvReac Type Severity Reaction Status Date / Time No Known Allergies Allergy Verified 06/22/23 23:24 Home Medications Medication Instructions Recorded Confirmed Type pantoprazole 40 mg tablet,delayed 40 mg PO DAILY 01/03/23 07/17/23 History release apixaban 5 mg tablet (Eliquis) 5 mg PO DAILY 06/23/23 07/17/23 History dicyclomine 10 mg capsule 10 mg PO TID PRN abdominal pain 06/25/23 07/17/23 Rx #30 caps paroxetine HCl 20 mg tablet 20 mg PO QAM #30 tabs 07/06/23 07/17/23 Rx Patient History Medical History Abdominal pain Epigastric abdominal pain Pancreatic duct stones Abdominal pain, acute, epigastric Retrosternal chest pain History of pulmonary embolism Alcohol withdrawal Alcoholic ketosis COVID-19 Nausea & vomiting Alcohol abuse Abdominal pain Encounter for pre-operative examination Acute hyperglycemia Encounter for alcohol abuse counseling and surveillance Encounter for tobacco use cessation counseling Alcohol abuse Pancreatitis Neuropathy Hyperglycemia Chest pain Abdominal pain Pulmonary embolism on chronic apixaban Depression Mood disorder Intentional drug overdose Suicidal ideation Suicide attempt Mood disorder Suicidal ideation Lumbar degenerative disc disease Panic disorder Depression History of substance abuse Alcohol abuse (Unknown) H/O acute pancreatitis "recurrent" Renae's esophagus (Unknown) "per EGD 11/23/09 " On 05/31/11 09:06 Martinez Jose wrote "per EGD 11/23/09 " DM type 2 (diabetes mellitus, type 2) Surgical History S/P lumbar fusion L4-S1 2014 H/O esophagogastroduodenoscopy "EGD 11/23/2009- mild gastritis, suspicious for gastroparesis, Z-line irregular EUS 02/04/2010- mild chronic pancreatitis, pronounced cholesterolosis of gallbladder, no biliary dilation or stones, probable gastroparesis EGD 10/31/2014- gastritis" Family History Father Alcohol abuse Social History Smoking Status: Current every day smoker Tobacco Type: Smokeless Tobacco (Dip or Chew) Second Hand Exposure: No; Do You Dip or Chew Tobacco: Yes; Hx Alcohol Use: Yes Alcohol type: hard liquor Hx Substance Use: No Preferred Language: Martiniquais Communication Ability: Effective Pack Master Required: No Beliefs That Will Affect Care: None marital status: Current Living Situation: Alone Current Living Situation Comment: home with mom How many Children do You have: 3 Feels Safe at Home: Yes Assistive Devices: None Review of Systems Review of Systems: All systems reviewed & are unremarkable except as noted in HPI & below Physical Exam Constitutional: WD/WN, vitals as above Respiratory: normal respiratory effort, lungs clear to auscultation Cardiovascular: Rate/Rhythm: regular rate and regular rhythm Gastrointestinal (Abdomen): Inspection/Auscultation: abdomen normal to inspection Percussion/Palpation: + abdomen tender and abdomen soft; no guarding and abdomen not rigid Skin: no rashes, warm and dry Results & Data Vital Signs (Past 12 Hours) Vital Signs Temp Pulse Pulse Resp BP BP Pulse Ox 07/17/23 09:22 75 16 90/55 L 95 07/17/23 09:22 07/17/23 09:05 84 90/55 L 07/17/23 09:04 94 H 52 H 93 07/17/23 09:00 79 7 L 94 07/17/23 08:45 76 13 97 07/17/23 08:30 94 H 14 98 07/17/23 08:15 80 11 L 94 07/17/23 08:08 93 H 07/17/23 08:00 86 11 L 95 07/17/23 08:00 87/59 L 07/17/23 07:54 97/57 L 07/17/23 07:54 75 7 L 94 07/17/23 07:50 83/64 L 07/17/23 07:50 89 16 96 07/17/23 07:45 80 7 L 94 07/17/23 07:30 89 16 07/17/23 07:15 89 9 L 07/17/23 07:00 82 7 L 96 07/17/23 06:45 89 15 96 07/17/23 06:30 90 8 L 97 07/17/23 06:15 98 H 14 96 07/17/23 06:00 87 13 95 07/17/23 06:00 99/66 L 07/17/23 05:53 93 H 07/17/23 05:45 99 H 13 96 07/17/23 05:43 96 H 17 97 07/17/23 05:43 104/63 07/17/23 05:41 92 H 15 104/63 98 07/17/23 02:01 92 H 15 101/75 95 07/17/23 00:42 99 07/17/23 00:07 36.7 C 90 17 132/82 97 07/17/23 00:01 89 18 108/77 100 Pulse Ox O2 Del Method O2 Del Method 07/17/23 09:22 Room Air 07/17/23 09:22 94 Room Air 07/17/23 09:05 07/17/23 09:04 07/17/23 09:00 07/17/23 08:45 07/17/23 08:30 07/17/23 08:15 07/17/23 08:08 07/17/23 08:00 07/17/23 08:00 07/17/23 07:54 07/17/23 07:54 07/17/23 07:50 07/17/23 07:50 07/17/23 07:45 07/17/23 07:30 07/17/23 07:15 07/17/23 07:00 07/17/23 06:45 07/17/23 06:30 07/17/23 06:15 07/17/23 06:00 07/17/23 06:00 07/17/23 05:53 07/17/23 05:45 07/17/23 05:43 07/17/23 05:43 07/17/23 05:41 07/17/23 02:01 Room Air 07/17/23 00:42 Room Air 07/17/23 00:07 Room Air 07/17/23 00:01 Laboratory Results 07/17/23 07/17/23 07/17/23 Range/Units 08:19 02:11 01:00 WBC (4.8-10.8) K/ul RBC (4.70-6.10) M/uL Hgb 13.0 L (14.0-18.0) g/dl Hct 37.3 L (42.0-52.0) % MCV (80.0-100.0) fL MCH (25.0-34.0) pg MCHC (32.0-36.0) g/dL RDW Std Deviation (36.4-46.3) fL RDW Coeff of Gucci (11.5-14.5) % Plt Count (130-400) K/uL MPV (9.4-12.4) fL Immature Gran % (Auto) % Neut % (Auto) % Lymph % (Auto) % [place] % (Auto) % Eos % (Auto) % Baso % (Auto) % Neut # (Auto) (1.40-6.50) K/uL Lymph # (Auto) (1.20-3.40) K/uL [place] # (Auto) (0.11-0.59) K/uL Eos # (Auto) (0.00-0.50) K/uL Baso # (Auto) (0.00-0.20) K/uL Immature Gran # (Auto) (0.01-0.20) K/uL PT 11.3 INR 1.0 APTT 28 PTT Ratio 1.0 Sodium 132 L Potassium 3.8 Chloride 98 Carbon Dioxide 25 Anion Gap 9 BUN 4 L Creatinine 0.76 Est Cr Clr Drug Dosing 129.0 Est GFR ( Amer) 124.2 Est GFR (Non-Af Amer) 107.1 BUN/Creatinine Ratio 5.3 L Glucose 277 H Calcium 9.1 Magnesium 1.9 Total Bilirubin 0.6 AST 23 ALT 19 Alkaline Phosphatase 60 Troponin I High Sens 2.3 Total Protein 6.7 Albumin 3.9 Globulin 2.8 Albumin/Globulin Ratio 1.4 Lipase 10 L Urine Color Yellow Urine Appearance Clear (Clear) Urine pH 5.0 (4.5-7.5) Ur Specific [place] 1.006 (1.000-1.030) Urine Protein Negative (Negative) Urine Glucose (UA) 2+ H (Negative) Urine Ketones Negative (Negative) Urine Blood Negative (Negative) Urine Nitrite Negative (Negative) Urine Bilirubin Negative (Negative) Urine Urobilinogen Negative (Negative) Ur Leukocyte Esterase Negative (Negative) Ethyl Alcohol mg/dL (<10.0) mg/dl Blood Type A Positive Antibody Screen NEGATIVE 07/17/23 Range/Units 00:31 WBC 6.26 (4.8-10.8) K/ul RBC 4.80 (4.70-6.10) M/uL Hgb 15.3 (14.0-18.0) g/dl Hct 43.2 (42.0-52.0) % MCV 90.0 (80.0-100.0) fL MCH 31.9 (25.0-34.0) pg MCHC 35.4 (32.0-36.0) g/dL RDW Std Deviation 37.6 (36.4-46.3) fL RDW Coeff of Gucci 11.5 (11.5-14.5) % Plt Count 202 (130-400) K/uL MPV 9.3 L (9.4-12.4) fL Immature Gran % (Auto) 0.3 % Neut % (Auto) 50.3 % Lymph % (Auto) 32.6 % [place] % (Auto) 8.3 % Eos % (Auto) 7.7 % Baso % (Auto) 0.8 % Neut # (Auto) 3.15 (1.40-6.50) K/uL Lymph # (Auto) 2.04 (1.20-3.40) K/uL [place] # (Auto) 0.52 (0.11-0.59) K/uL Eos # (Auto) 0.48 (0.00-0.50) K/uL Baso # (Auto) 0.05 (0.00-0.20) K/uL Immature Gran # (Auto) 0.02 (0.01-0.20) K/uL PT Cancelled INR Cancelled APTT Cancelled PTT Ratio Cancelled Sodium Cancelled Potassium Cancelled Chloride Cancelled Carbon Dioxide Cancelled Anion Gap Cancelled BUN Cancelled Creatinine Cancelled Est Cr Clr Drug Dosing Cancelled Est GFR ( Amer) Cancelled Est GFR (Non-Af Amer) Cancelled BUN/Creatinine Ratio Cancelled Glucose Cancelled Calcium Cancelled Magnesium Cancelled Total Bilirubin Cancelled AST Cancelled ALT Cancelled Alkaline Phosphatase Cancelled Troponin I High Sens Cancelled Total Protein Cancelled Albumin Cancelled Globulin Cancelled Albumin/Globulin Ratio Cancelled Lipase Cancelled Urine Color Urine Appearance (Clear) Urine pH (4.5-7.5) Ur Specific [place] (1.000-1.030) Urine Protein (Negative) Urine Glucose (UA) (Negative) Urine Ketones (Negative) Urine Blood (Negative) Urine Nitrite (Negative) Urine Bilirubin (Negative) Urine Urobilinogen (Negative) Ur Leukocyte Esterase (Negative) Ethyl Alcohol mg/dL 316.9 H (<10.0) mg/dl Blood Type Antibody Screen
[2023-07-17] MEDS: FOLIC ACID 1 MG TAB PO SCH (10:21)
[2023-07-17] MEDS: SODIUM CHLORIDE 0.9% 1,000 ML IV SCH ×2 (10:21→19:47)
[2023-07-17] MEDS: ONDANSETRON INJ 2 MG/ML 2 ML VIAL IV PRN ×2 (10:24→17:09)
[2023-07-17 10:25] LABS: Hematocrit (blood only) 38.1 % (42.0-52.0); Hemoglobin 13.4 g/dl (14.0-18.0)
[2023-07-17] MEDS: PARoxetine HCL 20 MG TAB PO SCH (10:44)
[2023-07-17] MEDS: THIAMINE HCL 100 MG TAB PO SCH (10:44)
[2023-07-17] MEDS: INSULIN ASPART PER UNIT CHARGE SC SCH ×4 (10:45→20:44)
[2023-07-17] MEDS: PANCREAZE (LIPASE 10,500U) CAP PO SCH ×2 (12:38→17:28)
[2023-07-17] MEDS: PSYLLIUM or GUAR GUM FIBER POWDER PACKET PO SCH (12:38)
--- NOTE | 2023-07-17 16:12 | Communication Note ---
Date of Service: July 17, 2023 Post admission eval: Evaluated patient at bedside. Reporting acute on chronic abdominal pain iso chronic pancreatitis. Discussed IVF and pain plan. Will utilize 0.5 IV Dilaudid at a q6h interval while requiring IVF and unable to eat. Once tolerating diet, will discontinue all IVF. Given pain, will come up with regimen with gabapentin. Patient on gabapentin taper given acute intoxication and plans to stave off withdrawal symptoms. Continue AWSS in interim. Review GI notes. No plan for scope as bleeding suspicious for hemorrhoidal/diverticular. Trend CBC Type and screen ordered. Hold eliquis until CBC stable Patient also reports areas of concern on RLE. He does endorse faithful compliance to eliquis, but feels bumps on veins of legs that are concerning for a clot. Highly suspicious for valves/varicose veins; however, patient perseverating on these areas. Doppler to r/o clot.
[2023-07-17] MEDS ORDERED: LACTATED RINGER'S 1,000 ML IV SCH (16:15)
[2023-07-17] MEDS: HYDROmorphone INJ 0.5 MG/0.5 ML SYR IV PRN ×2 (16:36→22:47)
[2023-07-17 17:00] LABS: Hematocrit (blood only) 40.5 % (42.0-52.0); Hemoglobin 14.2 g/dl (14.0-18.0)
--- NOTE | 2023-07-17 18:45 | Electrocardiogram Report ---
Test Reason : Blood Pressure : / mmHG Vent. Rate : 089 BPM Atrial Rate : 089 BPM P-R Int : 150 ms QRS Dur : 078 ms QT Int : 370 ms P-R-T Axes : 074 061 064 degrees QTc Int : 450 ms Normal sinus rhythm Septal infarct (cited on or before 17-JUL-2023) Abnormal ECG When compared with ECG of 03-JUL-2023 22:24, No significant change was found Confirmed by Sukhjinder Enciso ([id number]) on 07/17/2023 6:44:36 PM Referred By: REFERRED SELF Confirmed By:Sukhjinder Enciso
[2023-07-17] MEDS: PANTOprazole 40 MG TAB PO SCH (20:21)
[2023-07-17] MEDS: GABAPENTIN 600 MG TAB PO SCH ×2 (21:23→21:58)
[2023-07-18] MEDS: HYDROmorphone INJ 0.5 MG/0.5 ML SYR IV PRN (04:46)
[2023-07-18] MEDS ORDERED: GABAPENTIN 600 MG TAB PO SCH (06:00)
[2023-07-18 06:38] LABS: Basophils # (auto) 0.04 K/uL (0.00-0.20); Basophils % (auto) 0.9 %; Eosinophils # (auto) 0.35 K/uL (0.00-0.50); Eosinophils % (auto) 7.5 %; Hematocrit (blood only) 40.8 % (42.0-52.0); Hemoglobin 13.9 g/dl (14.0-18.0); Immature Granulocytes # (auto) 0.01 K/uL (0.01-0.20); Immature Granulocytes % (auto) 0.2 %; Lymphocytes # (auto) 1.07 K/uL (1.20-3.40); Lymphocytes % (auto) 22.9 %; Mean Corpuscular Hemoglobin 31.8 pg (25.0-34.0); Mean Corpuscular Hgb Conc 34.1 g/dL (32.0-36.0); Mean Corpuscular Volume 93.4 fL (80.0-100.0); Mean Platelet Volume 9.9 fL (9.4-12.4); Monocytes # (auto) 0.44 K/uL (0.11-0.59); Monocytes % (auto) 9.4 %; Neutrophils # (auto) 2.76 K/uL (1.40-6.50); Neutrophils % (auto) 59.1 %; Platelet Count 139 K/uL (130-400); RDW Coefficient of Variation 11.7 % (11.5-14.5); RDW Standard Deviation 40.1 fL (36.4-46.3); Red Blood Count 4.37 M/uL (4.70-6.10); White Blood Count 4.67 K/ul (4.8-10.8)
[2023-07-18 07:05] LABS: Albumin Globulin Ratio 1.4 (0.9-2); Albumin Level 3.5 gm/dl (3.4-5.0); BUN Creatinine Ratio 9.7 (10-20); Bilirubin,Total 0.9 mg/dl (0.2-1.0); Calcium 9.7 mg/dl (8.6-10.3); Creatinine Clr Calc Pharmacy 136.2 ml/min; Est GFR (Non-African American) 109.5 ml/min; Globulin 2.5 gm/dl (2.5-4.0); Magnesium 1.8 mg/dl (1.7-2.4); Phosphorus 3.3 mg/dl (2.5-4.9); Potassium 4.1 mmol/L (3.5-5.1)
[2023-07-18 07:12] VITALS: BP 116/74; RESP 16; TEMP 97.9; O2SAT 96
--- NOTE | 2023-07-18 07:20 | Ultrasound Report ---
US venous doppler LE RT HISTORY: 47 years-old Male hx of dvt, swelling acute pain and swelling of the right lower extremity COMPARISON: 03/02/2018 TECHNIQUE: Multiple real-time sonographic images of the right lower extremity deep venous structures were obtained assessing grayscale appearance, color and spectral flow. FINDINGS: Normal flow, compressibility, phasicity and augmentation. Within the area of clinical concern within the superficial subcutaneous tissues medial to the knee there is a 1.0 x 0.7 x 0.3 cm hypoechoic focu s without color flow which is wider than tall demonstrating circumscribed margins. An additional darwin lar appearing 7 mm focus is also noted in the lateral tissues. IMPRESSION: 1. No sonographic evidence of deep venous thrombosis. 2. There are two indeterminate subcentimeter subcutaneous foci within the area of clinical concern/pa lpable abnormality. Correlate with clinical exam findings. ACT 112: Negative or not required by law. The above report was generated using voice recognition software. It may contain grammatical, syntax o r spelling errors. Electronically signed by: Timur Álvarez M.D. 07/18/2023 7:19 AM
[2023-07-18 07:45] LABS: Estimated Average Glucose 229 mg/dl; Hemoglobin A1C 9.6 % (4.5-5.6)
[2023-07-18] MEDS: PSYLLIUM or GUAR GUM FIBER POWDER PACKET PO SCH (07:59)
[2023-07-18] MEDS: FOLIC ACID 1 MG TAB PO SCH (07:59)
[2023-07-18] MEDS: THIAMINE HCL 100 MG TAB PO SCH (07:59)
[2023-07-18] MEDS: PARoxetine HCL 20 MG TAB PO SCH (07:59)
[2023-07-18] MEDS: PANCREAZE (LIPASE 10,500U) CAP PO SCH (07:59)
[2023-07-18] MEDS: INSULIN ASPART PER UNIT CHARGE SC SCH (08:58)
[2023-07-18] MEDS: PANTOprazole 40 MG TAB PO SCH (09:55)
--- NOTE | 2023-07-18 10:57 | Discharge Summary ---
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 Shows photograph of rectal bleed. Also complains severe abdominal pain. Some nausea. On and off chest pains. No shortness of breath. No headache. Says has some diarrhea. Currently hemodynamically stable. Admission Exam Per Admitting Provider General- Not in distress Head- atraumatic Eyes- PERRL. ENT- oropharynx clear Neck- supple, no JVD. Lungs- clear to auscultation no wheezing or crackles Heart- regular rhythm; no murmur, no gallop. Abdomen- normal bowel sounds, soft, diffuse tenderness, guarding present, no distension. Extremities- no pretibial edema, no erythema seen. Neuro- alert, oriented x 3; PERRL, no facial palsy; no dysarthria; moves extremities. 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 GI evaluated patient and felt bleed was hemorrhoidal in nature or diverticular. No urgent scope at this time. Hemoglobin remained stable. Patient reported concern for pancreatis flare. Pain agreement involved IV management while NPO, but transition to gabapentin once toleating diet. Patient started to tolerated diet and requested discharge once IV medication declined given sufficent intake. Discussed resources and abstinence at length, as well as at the very least complicance with creon and insulin to help ease "work" of remaining functional pancreas which will in turn ease some pain. Patient verbalized understanding. Discussed that opioids have minimal role in chronic pancreatitis. Agreeable to gabapentin. #BRBPR, Rectal bleed Similar admissions recently Plan for EGD and colonoscopy as outpatient Hemoglobin stable Encouraged high fiber diet and to prevent constipation #Chronic pancreatitis Continue home medications Start Gabapentin 300mg TID #Alcoholism says drinking 8-16 beers daily Patient states he isn't ready to quit and will go home and drink Discussed cessation and plans/resources Patient declined any further CM involvement History of recurrent PE resume eliquis nodules on knee not DVT per duplex ordered to reassure patient #Diabetes says not taking medications Counseled on importance of taking home glargine Patient declined further counselling Depression on paroxetine On day of discharge, patient was very conversational, declined further withdrawal management and endorsed that he will continue drinking upon discharge and will seek "rehab" when he is ready Patient was tolerating full diet and medications upon discharge Discharge Exam Constitutional very complimentary Respiratory normal respiratory effort, lungs clear to auscultation Cardiovascular RRR, no murmur, no edema Gastrointestinal (Abdomen) normal bowel sounds, soft, nontender, no hepatosplenomegaly winced in pain only during discussion of pain, no during exam Updated Medication List Medication Instructions Recorded Confirmed Type pantoprazole 40 mg tablet,delayed 40 mg PO DAILY 01/03/23 07/17/23 History release apixaban 5 mg tablet (Eliquis) 5 mg PO DAILY 06/23/23 07/17/23 History dicyclomine 10 mg capsule 10 mg PO TID PRN abdominal pain 06/25/23 07/17/23 Rx #30 caps paroxetine HCl 20 mg tablet 20 mg PO QAM #30 tabs 07/06/23 07/17/23 Rx PSYLLIUM or GUAR GUM FIBER SUP 1 pkg PO QAM #30 packets 07/18/23 Rx [METAMUCIL or NUTRISOURCE FIBER SUPPLEMENT] gabapentin 300 mg capsule 300 mg PO TID #90 caps 07/18/23 Rx Hospital Stay Data Consultations 07/17/23 05:02 ED Decision to Admit Stat 07/17/23 09:17 Consult Gastroenterology Routine Diagnostic Imagining Performed 07/17/23 00:43 CT abd pelvis IV con only Stat 07/17/23 16:06 US venous doppler LE RT Routine Pending Results Patient Have Any Pending Studies at Discharge: No Discharge Instructions Given to Patient (Per Discharging Provider) You were admitted for concern of GI bleed, noting blood around your stool. Your blood levels remained stable while admitted. There is suspicion that this is related to hemorrhoids (potentially internal) or diverticular. You will need to follow up with the GI doctors for a scope as an outpatient. Its also noted you have chronic pancreatic pain It is highly important that you continue you medications to help off load the small portion of your pancreas that is functioning. This includes the Creon and insulin you stated you have at home--these help your pancreas tremendously not work so hard. You will be sent with Gabapentin 300mg three times a day to aid in your chronic pain management. Please try to increase fiber intake and stay hydrated with water Please continue your efforts in alcohol cessation and follow up with your PCP should you be interested in other options to aid in cessation, including pharmacologic, should you be ready. Total Time Total Time Spent Total Time Spent (In Minutes): 45
[2023-07-18 11:11] VITALS: PULSE 68
[2023-07-19] MEDS ORDERED: GABAPENTIN 600 MG TAB PO SCH (10:00)
[2023-07-20] MEDS ORDERED: GABAPENTIN 600 MG TAB PO SCH (22:00)
== END 2023-07-18 11:53 | disposition home or self-care (01) | DRG 378 ==
LOC: ED 00:01 → EDINP 06:54 → 2W 09:18

== ENCOUNTER 2023-08-14 18:38 | Inpatient (IN) ==
[2023-08-14] MEDS ORDERED: MULTI-VITAMIN INFUSION 10 ML, THIAMINE HCL 100 MG, FOLIC ACID 1 MG in SODIUM CHLORIDE 0... IV ONE (20:37)
[2023-08-14] MEDS ORDERED: FAMOTIDINE 20MG IV PUSH 20 MG/5 ML SYR IV STA (20:37)
[2023-08-14] MEDS ORDERED: ONDANSETRON INJ 2 MG/ML 2 ML VIAL IV STA (20:37)
[2023-08-14] MEDS ORDERED: THIAMINE HCL 200 MG in SODIUM CHLORIDE 0.9% 50 ML IV STA (20:37)
[2023-08-14] MEDS ORDERED: SODIUM CHLORIDE 0.9% 500 ML IV ONE (20:37)
--- NOTE | 2023-08-14 20:40 | Emergency Department Note ---
Impression & Plan Alcoholic gastritis, Alcohol abuse, Chronic abdominal pain, Influenza A ED Provider Note NAME: RIKY MELTON AGE: 47 SEX: M ARRIVES VIA: Ambulance INFORMANT: Patient ED PROVIDER(S): Sushant Nash MD CHIEF COMPLAINT: Abdominal pain PLAN: Disposition: Admit MEDICAL DECISION MAKING: The patient is a 47-year-old gentleman with a past medical history of alcohol abuse/dependence, Renae's esophagus, gastritis, chronic pancreatitis/chronic abdominal pain with recurrent emergency department visits and hospitalizations who presents to the emergency department via EMS for flare of his chronic abdominal pain which he feels is consistent with his pancreatitis in the setting of being seen in this emergency department on 08/10 for similar symptoms and diagnosed with influenza. Patient was treated with Dilaudid and IV fluid hydration and felt improved and was subsequently discharged. He was prescribed Tamiflu which she has been taking but feels his nausea and vomiting has subsequently worsened. He reports he drank "8 beers today". He reports ongoing cough and congestion that has not improved. Of note, the patient reports he has had ongoing blood in his stool this week and demonstrates on his phone a picture of what he reports as a recent bowel movement which demonstrated brown stool in the toilet with a red hue in the water but no clots. On my evaluation the patient is uncomfortable but no acute distress, afebrile with heart rate in the 100s and vital signs otherwise stable. He appears clinically dry. He has generalized abdominal tenderness with light touch of the skin that is distractible. He exhibits no overt signs of withdrawal at this time. EKG without overt acute ischemia. CXR negative for acute cardiopulmonary process per my personal preliminary review/interpretation. WBC, H/H and platelets within normal limits. Of note, H/H actually improved from 4 days ago evidence of significant GI bleed is not likely. Chemistry without metabolic acidosis. Electrolytes unremarkable. AST 58, mildly elevated and similar to prior range values. High-sensitivity troponin 8.2, within normal limits. Lipase is not elevated. Procalcitonin is undetectable. Urinalysis is without evidence of infection. Medical alcohol was 284. Respiratory viral panel continues to be positive for influenza A. CT abdomen pelvis was performed demonstrates atrophy and calcifications in the pancreas consistent with sequela of pancreatitis without evidence of acute on chronic pancreatitis at this time. Hepatic steatosis is noted. Given patient's flare of symptoms in setting of influenza he does agree with plan for admission for further management. Patient was treated with IV fluid hydration including banana bag and thiamine in the setting of his alcoholism. He was additionally treated with IV Pepcid and IV Protonix for component of gastritis. He was additionally treated with IV Ativan for prophylaxis against withdrawal. It was discussed with the patient that regular visits for IV narcotics were not in his best interest. For pain he was administered IM Bentyl as an antispasmodic and Carafate to treat the underlying cause of his symptoms which is likely gastritis. Case was discussed with Dr. Sousa, [facility] hospitalist, who will evaluate the patient for admission. Triage Nursing notes reviewed and agree them. Prior/external medical records reviewed Vital Signs: reviewed Differential diagnosis: Gastroenteritis, food borne illness, infections, appendicitis, diverticulitis, inflammatory bowel disease, obstruction, GI bleed, biliary pathology, volvulus, as well as other pathologies. ER treatment provided: See below. Diagnostics interpreted by me: ECG: Normal sinus rhythm, 82 bpm, no ectopy, no overt ST elevation or depression, QTc 420, QRS 84. Cardiac Monitoring: An order for continuous cardiac monitoring was placed and demonstrated Normal sinus rhythm, 82 bpm, no ectopy. Laboratory studies: See below Imaging studies: See below Consultation(s): Case was discussed with Dr. Sousa, [facility]ist, who will evaluate the patient for admission. HPI: The patient is a 47-year-old gentleman with a past medical history of alcohol abuse/dependence, Renae's esophagus, gastritis, chronic pancreatitis/chronic abdominal pain with recurrent emergency department visits and hospitalizations who presents to the emergency department via EMS for flare of his chronic abdominal pain which he feels is consistent with his pancreatitis in the setting of being seen in this emergency department on 08/10 for similar symptoms and diagnosed with influenza. Patient was treated with Dilaudid and IV fluid hydration and felt improved and was subsequently discharged. He was prescribed Tamiflu which she has been taking but feels his nausea and vomiting has subsequently worsened. He reports he drank "8 beers today". He reports ongoing cough and congestion that has not improved. Of note, the patient reports he has had ongoing blood in his stool this week and demonstrates on his phone a picture of what he reports as a recent bowel movement which demonstrated brown stool in the toilet with a red hue in the water but no clots. ROS: See above HPI for pertinent positives & negatives. A total of 10 systems reviewed and were otherwise negative. VITALS:See Below PHYSICAL EXAMINATION: GENERAL: Awake, alert, uncomfortable-appearing, in no distress HENT: Normocephalic, atraumatic. Oropharynx with dry mucous membranes and otherwise unremarkable. EYES: Normal conjunctiva. Sclera non-icteric. NECK: Supple. No nuchal rigidity. FROM. No JVD. RESPIRATORY: Clear to auscultation. CARDIAC: Regular rate, normal rhythm. Extremities warm and well perfused. Pulses equal. ABDOMEN: Soft, non-distended. Generalized abdominal tenderness with light touch of the skin that is distractible. RECTAL: Deferred. MUSCULOSKELETAL: Chest examination reveals no tenderness. The back is symmetrical on inspection without obvious abnormality. There is no CVA tenderness to palpation. No joint edema. LOWER EXTREMITIES: Calves are equal size bilaterally and non-tender. No edema. No discoloration. NEURO: No focal sensory or motor deficits noted. No overt signs of withdrawal at this time. SKIN: No rash or jaundice noted. Sushant Nash MD Past Med/Surg History Medical History Abdominal pain Epigastric abdominal pain Pancreatic duct stones Abdominal pain, acute, epigastric Retrosternal chest pain History of pulmonary embolism Alcohol withdrawal Alcoholic ketosis COVID-19 Nausea & vomiting Alcohol abuse Abdominal pain Encounter for pre-operative examination Acute hyperglycemia Encounter for alcohol abuse counseling and surveillance Encounter for tobacco use cessation counseling Alcohol abuse Pancreatitis Neuropathy Hyperglycemia Chest pain Abdominal pain Pulmonary embolism on chronic apixaban Depression Mood disorder Intentional drug overdose Suicidal ideation Suicide attempt Mood disorder Suicidal ideation Lumbar degenerative disc disease Panic disorder Depression History of substance abuse Alcohol abuse (Unknown) H/O acute pancreatitis "recurrent" Renae's esophagus (Unknown) "per EGD 11/23/09 " On 05/31/11 09:06 Martinez Jose wrote "per EGD 11/23/09 " DM type 2 (diabetes mellitus, type 2) Surgical History S/P lumbar fusion L4-S1 2014 H/O esophagogastroduodenoscopy "EGD 11/23/2009- mild gastritis, suspicious for gastroparesis, Z-line irregular EUS 02/04/2010- mild chronic pancreatitis, pronounced cholesterolosis of gallbladder, no biliary dilation or stones, probable gastroparesis EGD 10/31/2014- gastritis" Family History Father Alcohol abuse Social History Smoking Status: Never smoker Tobacco Type: Smokeless Tobacco (Dip or Chew) Second Hand Exposure: No; Do You Dip or Chew Tobacco: No; Hx Alcohol Use: Yes Alcohol type: beer Hx Substance Use: No Preferred Language: Faroese Communication Ability: Effective Alterations Tailor Required: No Beliefs That Will Affect Care: None marital status: Current Living Situation: Family Current Living Situation Comment: home with mom How many Children do You have: 3 Feels Safe at Home: Yes Assistive Devices: None Allergies Allergies Allergy/AdvReac Type Severity Reaction Status Date / Time No Known Allergies Allergy Verified 08/14/23 21:23 Home Meds Home Medications Medication Instructions Recorded Confirmed pantoprazole 40 mg tablet,delayed 40 mg PO DAILYBB 01/03/23 08/14/23 release apixaban 5 mg tablet (Eliquis) 5 mg PO BID 06/23/23 08/14/23 insulin glargine 100 unit/mL 18 unit subcut QPM 08/10/23 08/14/23 subcutaneous solution (Lantus U-100 Insulin) ejtzdw-rcekjpet-twhbilx 1 cap PO TIDM 08/10/23 08/14/23 24,000-76,000-120,000 unit capsule,delayed rel (Creon) oxycodone 5 mg tablet 5 mg PO Q6H PRN Pain 08/10/23 08/14/23 gabapentin 300 mg capsule 300 mg PO TID PRN Pain 08/14/23 08/14/23 insulin lispro 100 unit/mL 0 unit subcut Q OTHER DAY PRN 08/14/23 08/14/23 subcutaneous pen Hyperglycemia Previous Rx's Medication Instructions Recorded paroxetine HCl 20 mg tablet 20 mg PO QAM #30 tabs 07/06/23 oseltamivir 75 mg capsule (Tamiflu) 75 mg PO BID 5 days #10 caps 08/10/23 Results & Data (ED) Vital Signs Vital Signs - 24 hr 08/14/23 18:31 08/14/23 18:31 08/14/23 18:53 Temperature Temperature Source Pulse Rate 79 Pulse Rate [Apical] 71 Pulse Rhythm Pulse Rhythm [Apical] Regular Pulse Strength Pulse Strength [Apical] Normal Respiratory Rate 16 Respiratory Effort / Characteristics Non-Labored Spontaneous Respiratory Depth Normal Respiratory Pattern Regular Blood Pressure Blood Pressure [Right Arm] 112/82 Blood Pressure Mean Blood Pressure Mean [Right Arm] 92 Blood Pressure Position Blood Pressure Position [Right Arm] Lying Pulse Oximetry 96 99 Oxygen Delivery Method Room Air Room Air Oxygen Flow Rate 0 Sepsis Recent Fever Within 48 Hours Sepsis New/Unexplained Change in Mental Status Sepsis Action Taken by Nursing 08/14/23 19:01 08/14/23 20:31 08/14/23 20:36 Temperature 36.5 C Temperature Source Oral Pulse Rate 78 74 Pulse Rate [Apical] 78 Pulse Rhythm Regular Regular Pulse Rhythm [Apical] Regular Pulse Strength Normal Pulse Strength [Apical] Normal Respiratory Rate 17 17 16 Respiratory Effort / Characteristics Non-Labored Spontaneous Non-Labored Spontaneous Respiratory Depth Normal Normal Respiratory Pattern Regular Regular Blood Pressure 112/82 Blood Pressure [Right Arm] 114/79 Blood Pressure Mean 92 Blood Pressure Mean [Right Arm] 90 Blood Pressure Position Semi-fowlers Blood Pressure Position [Right Arm] Lying Pulse Oximetry 94 99 100 Oxygen Delivery Method Room Air Room Air Room Air Oxygen Flow Rate Sepsis Recent Fever Within 48 Hours No Sepsis New/Unexplained Change in Mental Status N/A Sepsis Action Taken by Nursing No Action Required 08/14/23 22:00 08/14/23 22:44 08/15/23 00:00 Temperature Temperature Source Pulse Rate 78 Pulse Rate [Apical] 90 100 H Pulse Rhythm Pulse Rhythm [Apical] Regular Regular Pulse Strength Pulse Strength [Apical] Normal Normal Respiratory Rate 16 16 Respiratory Effort / Characteristics Non-Labored Spontaneous Non-Labored Spontaneous Respiratory Depth Normal Normal Respiratory Pattern Regular Regular Blood Pressure Blood Pressure [Right Arm] 114/63 124/82 Blood Pressure Mean Blood Pressure Mean [Right Arm] 80 96 Blood Pressure Position Blood Pressure Position [Right Arm] Lying Lying Pulse Oximetry 100 94 Oxygen Delivery Method Room Air Room Air Oxygen Flow Rate Sepsis Recent Fever Within 48 Hours Sepsis New/Unexplained Change in Mental Status Sepsis Action Taken by Nursing Laboratory Data Attestation: I reviewed the patient's lab results. 08/14/23 18:50 08/14/23 18:50 Lab Results 08/14/23 08/14/23 Range/Units 18:50 23:35 WBC 5.47 (4.8-10.8) K/ul RBC 4.68 L (4.70-6.10) M/uL Hgb 14.9 (14.0-18.0) g/dl Hct 42.7 (42.0-52.0) % MCV 91.2 (80.0-100.0) fL MCH 31.8 (25.0-34.0) pg MCHC 34.9 (32.0-36.0) g/dL RDW Std Deviation 38.7 (36.4-46.3) fL RDW Coeff of Gucci 11.5 (11.5-14.5) % Plt Count 271 (130-400) K/uL MPV 10.1 (9.4-12.4) fL Immature Gran % (Auto) 0.2 % Neut % (Auto) 52.1 % Lymph % (Auto) 36.7 % [place] % (Auto) 7.3 % Eos % (Auto) 3.3 % Baso % (Auto) 0.4 % Neut # (Auto) 2.85 (1.40-6.50) K/uL Lymph # (Auto) 2.01 (1.20-3.40) K/uL [place] # (Auto) 0.40 (0.11-0.59) K/uL Eos # (Auto) 0.18 (0.00-0.50) K/uL Baso # (Auto) 0.02 (0.00-0.20) K/uL Immature Gran # (Auto) 0.01 (0.01-0.20) K/uL PT 10.9 (9.0-12.0) Seconds INR 1.0 (0.9-1.1) Sodium 134 L (136-145) mmol/L Potassium 3.7 (3.5-5.1) mmol/L Chloride 100 (98-107) mmol/L Carbon Dioxide 23 (21-32) mmol/L Anion Gap 11 (3-11) BUN 5 L (6-23) mg/dl Creatinine 0.70 (0.6-1.4) mg/dl Est Cr Clr Drug Dosing 140.1 ml/min Est GFR ( Amer) 128.4 ml/min Est GFR (Non-Af Amer) 110.8 ml/min BUN/Creatinine Ratio 7.1 L (10-20) Glucose 162 H (70-99(Fasting)) mg/dl Calcium 9.7 (8.6-10.3) mg/dl Phosphorus 2.5 (2.5-4.9) mg/dl Magnesium 2.0 (1.7-2.4) mg/dl Total Bilirubin 0.5 (0.2-1.0) mg/dl Direct Bilirubin 0.1 (0-0.2) mg/dl AST 58 H (13-39) U/L ALT 44 (7-52) U/L Alkaline Phosphatase 110 H (34-104) U/L Troponin I High Sens 8.2 (0-20) pg/ml Total Protein 7.7 (6.0-8.3) gm/dl Albumin 4.2 (3.4-5.0) gm/dl Globulin 3.5 (2.5-4.0) gm/dl Albumin/Globulin Ratio 1.2 (0.9-2) Lipase 7 L (11-82) U/L Procalcitonin < 0.05 (0-0.5) ng/ml Urine Color Yellow Urine Appearance Clear (Clear) Urine pH 5.5 (4.5-7.5) Ur Specific [place] 1.010 (1.000-1.030) Urine Protein Negative (Negative) Urine Glucose (UA) Negative (Negative) Urine Ketones Negative (Negative) Urine Blood Negative (Negative) Urine Nitrite Negative (Negative) Urine Bilirubin Negative (Negative) Urine Urobilinogen Negative (Negative) Ur Leukocyte Esterase Negative (Negative) Urine Opiates Screen Neg (Neg) Ur Methadone, Qual Neg (Neg) Urine Barbiturates Neg (Neg) Ur Phencyclidine (PCP) Neg (Neg) U Amphetamin/Meth Scrn Neg (Neg) MDMA (Ecstasy) Screen Neg (Neg) U Benzodiazepines Scrn Neg (Neg) Ur Cocaine Metabolite Neg (Neg) U Marijuana (THC) Screen Neg (Neg) Ethyl Alcohol mg/dL 284.0 H (<10.0) mg/dl Adenovirus (PCR) Not Detected (NotDetected) B. pertussis DNA (PCR) Not Detected (NotDetected) B.parapertussis DNA PCR Not Detected (NotDetected) C. pneumoniae DNA (PCR) Not Detected (NotDetected) Coronavirus OC43 (PCR) Not Detected (NotDetected) Coronavirus HKU1 (PCR) Not Detected (NotDetected) Coronavirus 229E (PCR) Not Detected (NotDetected) SARS-CoV-2 (PCR) Not Detected (NotDetected) Coronavirus NL63 (PCR) Not Detected (NotDetected) Human Metapneumovir PCR Not Detected (NotDetected) Influenza A (H3) PCR DETECTED A* (NotDetected) Influenza Type B (PCR) Not Detected (NotDetected) M. pneumoniae (PCR) Not Detected (NotDetected) Parainfluenza 1 (PCR) Not Detected (NotDetected) Parainfluenza 2 (PCR) Not Detected (NotDetected) Parainfluenza 3 (PCR) Not Detected (NotDetected) Parainfluenza 4 (PCR) Not Detected (NotDetected) RSV (PCR) Not Detected (NotDetected) Entero/Rhino (PCR) Not Detected (NotDetected) Administered Medications Lactated Ringer's (Lr) 1,000 mls @ 150 mls/hr IV .Q6H40M RAMOS Stop: 09/14/23 02:28 Last Admin: 08/15/23 04:05 Dose: 150 mls/hr Documented By: IDD Oxycodone HCl (Oxycodone Hcl Ir 5 Mg Tab (Immediate Release)) 5 mg PO Q6H PRN PRN Reason: Pain Stop: 08/29/23 02:28 Last Admin: 08/15/23 03:40 Dose: 5 mg Documented By: IDD Discontinued Medications Albuterol (Albut/Ipratrop 3mg/0.5mg Neb 3 Ml Vial) 3 ml NEB NOW STA; Protocol Stop: 08/14/23 22:48 Last Admin: 08/14/23 23:06 Dose: 3 ml Documented By: IDD Dicyclomine HCl (Dicyclomine Hcl 10 Mg/Ml 2 Ml Amp/Vial) 20 mg IM NOW ONE Stop: 08/14/23 22:46 Last Admin: 08/14/23 23:07 Dose: 20 mg Documented By: IDD Gabapentin (Gabapentin 600 Mg Tab) 1,200 mg PO NOW ONE Stop: 08/15/23 02:46 Last Admin: 08/15/23 03:33 Dose: 1,200 mg Documented By: CLARENCE Sodium Chloride (Nss) 500 mls @ 999 mls/hr IV .Q31M ONE Stop: 08/14/23 21:07 Last Infusion: 08/14/23 22:34 Dose: Infused Documented By: Admin: 08/14/23 21:57 Dose: 999 mls/hr Documented By: CLARENCE Multivitamins 10 ml/ Thiamine HCl 100 mg/ Folic Acid 1 mg/Sodium Chloride 1,011.2 mls @ 500 mls/hr IV .Q2H2M ONE Stop: 08/14/23 22:38 Last Infusion: 08/15/23 00:45 Dose: Infused Documented By: Admin: 08/14/23 22:12 Dose: 500 mls/hr Documented By: CLARENCE Thiamine HCl 200 mg/ Sodium (Chloride) 52 mls @ 210 mls/hr IV NOW STA Stop: 08/14/23 20:51 Last Infusion: 08/14/23 22:12 Dose: Infused Documented By: Admin: 08/14/23 21:57 Dose: 210 mls/hr Documented By: CLARENCE Famotidine (Pepcid 20mg Iv Push) 20 mg in 5 mls @ 2.5 mls/min IV NOW STA Stop: 08/14/23 20:38 Last Admin: 08/14/23 21:57 Dose: 2.5 mls/min Documented By: CLARENCE Acetaminophen (Ofirmev) 1,000 mg in 100 mls @ 400 mls/hr IV NOW STA Stop: 08/14/23 23:01 Last Infusion: 08/14/23 23:22 Dose: Infused Documented By: Admin: 08/14/23 23:07 Dose: 400 mls/hr Documented By: CLARENCE Pantoprazole Sodium 40 mg/ (Syringe) 10 mls @ 5 mls/min IV NOW ONE Stop: 08/15/23 00:33 Last Admin: 08/15/23 01:23 Dose: 5 mls/min Documented By: CLARENCE Ioversol (Optiray 320 500ml) 100 ml IV ONCE ONE Stop: 08/14/23 23:24 Last Admin: 08/14/23 23:23 Dose: 88 ml Documented By: LUANN Lorazepam (Lorazepam 1 Mg/1 Ml Syr Ed Inj Use) 2 mg IV ONE STA Stop: 08/14/23 22:46 Last Admin: 08/14/23 23:07 Dose: 2 mg Documented By: IDD Methylprednisolone (Methylprednisolone 125 Mg/2 Ml Vial) 125 mg IV NOW STA Stop: 08/14/23 22:48 Last Admin: 08/14/23 23:06 Dose: 125 mg Documented By: IDD Ondansetron HCl (Ondansetron Inj 2 Mg/Ml 2 Ml Vial) 4 mg IV NOW STA Stop: 08/14/23 20:38 Last Admin: 08/14/23 21:58 Dose: 4 mg Documented By: IDD Sucralfate (Sucralfate 1 Gm/10 Ml Udc) 1 gm PO NOW STA Stop: 08/14/23 22:30 Last Admin: 08/14/23 23:36 Dose: 1 gm Documented By: IDD Imaging Data Radiologist's Impression: Abdomen/Pelvis CT 08/14/23 22:45 Exam(s): CT ABDOMEN + PELVIS With Contrast IV Amt: 87 ML OPTIRAY 320 EXAM: CT Abdomen and Pelvis With Intravenous Contrast CLINICAL HISTORY: Reason for exam: upper abd pain, blood in stool, etoh. TECHNIQUE: Axial computed tomography images of the abdomen and pelvis with intravenous contrast. Automated exposure control was utilized for the study. A dose lowering technique was utilized adhering to the principles of ALARA. CONTRAST: Patient received 87 ML OPTIRAY 320 of IV contrast COMPARISON: CT abdomen pelvis August 10, 2023. FINDINGS: Lung bases: Unremarkable. No mass. No consolidation. ABDOMEN: Liver: Hepatic steatosis. Gallbladder and bile ducts: Cholecystectomy. No ductal dilation. Pancreas: Atrophy and calcifications in the pancreas, consistent with sequelae of pancreatitis. No ductal dilation. Spleen: Unremarkable. No splenomegaly. Adrenals: Unremarkable. No mass. Kidneys and ureters: Unremarkable. No hydronephrosis or delayed nephrogram. Stomach and bowel: Unremarkable. No obstruction. No mucosal thickening. PELVIS: Appendix: No findings to suggest acute appendicitis. Bladder: Unremarkable. No mass. Reproductive: Unremarkable as visualized. ABDOMEN and PELVIS: Intraperitoneal space: Unremarkable. No free air. No significant fluid collection. Bones/joints: Posterior lumbar fusion at L4-S1. No acute fracture. No dislocation. Soft tissues: Unremarkable. Vasculature: Unremarkable. No abdominal aortic aneurysm. Lymph nodes: Unremarkable. No enlarged lymph nodes. IMPRESSION: 1. Atrophy and calcifications in the pancreas, consistent with sequelae of pancreatitis. 2. Hepatic steatosis. 3. Cholecystectomy. Electronically signed by: Jeff Alamo MD 08/15/23 00:46 AM Discharge Plan Visit Data Chief Complaint: Chest Pain ED Provider: Sushant Nash Discharge Problem: Alcoholic gastritis, Alcohol abuse, Chronic abdominal pain, Influenza A Patient Disposition: Admitted As Inpatient Discharge Instructions Interventions: ED Discharge Assessment Last Done: 08/15/23 02:30 Discharge Problem: Alcoholic gastritis Qualifiers: Chronicity: chronic Gastritis bleeding: without bleeding Qualified Code(s): K 29.20 - Alcoholic gastritis without bleeding
[2023-08-14 21:28] LABS: Basophils # (auto) 0.02 K/uL (0.00-0.20); Basophils % (auto) 0.4 %; Eosinophils # (auto) 0.18 K/uL (0.00-0.50); Eosinophils % (auto) 3.3 %; Hematocrit (blood only) 42.7 % (42.0-52.0); Hemoglobin 14.9 g/dl (14.0-18.0); Immature Granulocytes # (auto) 0.01 K/uL (0.01-0.20); Immature Granulocytes % (auto) 0.2 %; Lymphocytes # (auto) 2.01 K/uL (1.20-3.40); Lymphocytes % (auto) 36.7 %; Mean Corpuscular Hemoglobin 31.8 pg (25.0-34.0); Mean Corpuscular Hgb Conc 34.9 g/dL (32.0-36.0); Mean Corpuscular Volume 91.2 fL (80.0-100.0); Mean Platelet Volume 10.1 fL (9.4-12.4); Monocytes % (auto) 7.3 %; Neutrophils # (auto) 2.85 K/uL (1.40-6.50); Neutrophils % (auto) 52.1 %; Platelet Count 271 K/uL (130-400); RDW Coefficient of Variation 11.5 % (11.5-14.5); RDW Standard Deviation 38.7 fL (36.4-46.3); Red Blood Count 4.68 M/uL (4.70-6.10); White Blood Count 5.47 K/ul (4.8-10.8)
[2023-08-14 21:58] LABS: Prothrombin Time 10.9 Seconds (9.0-12.0)
[2023-08-14 22:01] LABS: Albumin Globulin Ratio 1.2 (0.9-2); Albumin Level 4.2 gm/dl (3.4-5.0); BUN Creatinine Ratio 7.1 (10-20); Bilirubin,Total 0.5 mg/dl (0.2-1.0); Calcium 9.7 mg/dl (8.6-10.3); Creatinine Clr Calc Pharmacy 140.1 ml/min; Est GFR (African American) 128.4 ml/min; Est GFR (Non-African American) 110.8 ml/min; Globulin 3.5 gm/dl (2.5-4.0); Phosphorus 2.5 mg/dl (2.5-4.9); Potassium 3.7 mmol/L (3.5-5.1); Total Protein 7.7 gm/dl (6.0-8.3); Troponin I High Sensitivity 8.2 pg/ml (0-20)
[2023-08-14 22:04] LABS: Bilirubin Direct 0.1 mg/dl (0-0.2)
[2023-08-14] MEDS ORDERED: SUCRALFATE 1 GM/10 ML UDC PO STA (22:29)
[2023-08-14] MEDS ORDERED: DICYCLOMINE HCL 10 MG/ML 2 ML AMP/VIAL IM ONE (22:45)
[2023-08-14] MEDS ORDERED: LORazepam 1 MG/1 ML SYR ED Inj Use IV STA (22:45)
[2023-08-14] MEDS ORDERED: ACETAMINOPHEN 1,000 MG/100 ML VIAL IV STA (22:47)
[2023-08-14] MEDS ORDERED: methylPREDNISolone 125 MG/2 ML VIAL IV STA (22:47)
[2023-08-14] MEDS ORDERED: ALBUT/IPRATROP 3MG/0.5MG NEB 3 ML VIAL NEB STA (22:47)
[2023-08-14] MEDS ORDERED: OPTIRAY 320 500ml IV ONE (23:23)
[2023-08-14 23:50] LABS: Appearance Urine Clear (Clear); Bilirubin Urine Negative (Negative); Blood Urine Negative (Negative); Color Urine Yellow; Glucose Urine UA Negative (Negative); Ketones Urine Negative (Negative); Leukocyte Esterase Urine Negative (Negative); Nitrite Urine Negative (Negative); Protein Urine Negative (Negative); Urobilinogen Urine Negative (Negative); pH Urine 5.5 (4.5-7.5)
[2023-08-15 00:09] LABS: Amphetamines+Metham, Urine Neg (Neg); Barbiturates, Urine Neg (Neg); Benzodiazepine, Urine Neg (Neg); Cocaine, Urine Neg (Neg); MDMA (Ecstacy), Urine Neg (Neg); Marijuana, Urine Neg (Neg); Methadone, Urine Neg (Neg); Opiate, Urine Neg (Neg); Phencyclidine, Urine Neg (Neg)
[2023-08-15] MEDS ORDERED: PANTOprazole 40 MG in SYRINGE 0 ML IV ONE (00:32)
--- NOTE | 2023-08-15 00:47 | CT Scan Report ---
Exam(s): CT ABDOMEN + PELVIS With Contrast IV Amt: 87 ML OPTIRAY 320 EXAM: CT Abdomen and Pelvis With Intravenous Contrast CLINICAL HISTORY: Reason for exam: upper abd pain, blood in stool, etoh. TECHNIQUE: Axial computed tomography images of the abdomen and pelvis with intravenous contrast. Automated exposure control was utilized for the study. A dose lowering technique was utilized adhering to the principles of ALARA. CONTRAST: Patient received 87 ML OPTIRAY 320 of IV contrast COMPARISON: CT abdomen pelvis August 10, 2023. FINDINGS: Lung bases: Unremarkable. No mass. No consolidation. ABDOMEN: Liver: Hepatic steatosis. Gallbladder and bile ducts: Cholecystectomy. No ductal dilation. Pancreas: Atrophy and calcifications in the pancreas, consistent with sequelae of pancreatitis. No ductal dilation. Spleen: Unremarkable. No splenomegaly. Adrenals: Unremarkable. No mass. Kidneys and ureters: Unremarkable. No hydronephrosis or delayed nephrogram. Stomach and bowel: Unremarkable. No obstruction. No mucosal thickening. PELVIS: Appendix: No findings to suggest acute appendicitis. Bladder: Unremarkable. No mass. Reproductive: Unremarkable as visualized. ABDOMEN and PELVIS: Intraperitoneal space: Unremarkable. No free air. No significant fluid collection. Bones/joints: Posterior lumbar fusion at L4-S1. No acute fracture. No dislocation. Soft tissues: Unremarkable. Vasculature: Unremarkable. No abdominal aortic aneurysm. Lymph nodes: Unremarkable. No enlarged lymph nodes. IMPRESSION: 1. Atrophy and calcifications in the pancreas, consistent with sequelae of pancreatitis. 2. Hepatic steatosis. 3. Cholecystectomy. Electronically signed by: Jeff Alamo MD 08/15/23 00:46 AM
[2023-08-15 01:06] LABS: Adenovirus PCR Not Detected (NotDetected); Bordetella parapertussis PCR Not Detected (NotDetected); Bordetella pertussis PCR Not Detected (NotDetected); Chlamydia pneumoniae PCR Not Detected (NotDetected); Coronavirus 229E PCR Not Detected (NotDetected); Coronavirus CoV-2 (COVID19)PCR Not Detected (NotDetected); Coronavirus HKU1 PCR Not Detected (NotDetected); Coronavirus NL63 PCR Not Detected (NotDetected); Coronavirus OC43PCR Not Detected (NotDetected); Human Metapneumovirus PCR Not Detected (NotDetected); Influenza B PCR Not Detected (NotDetected); Mycoplasma pneumoniae PCR Not Detected (NotDetected); Parainfluenza Virus 1 PCR Not Detected (NotDetected); Parainfluenza Virus 2 PCR Not Detected (NotDetected); Parainfluenza Virus 3 PCR Not Detected (NotDetected); Parainfluenza Virus 4 PCR Not Detected (NotDetected); Respiratory Syncytial VirusPCR Not Detected (NotDetected); Rhinovirus/Enterovirus PCR Not Detected (NotDetected)
[2023-08-15 01:13] LABS: Influenza A (H3) PCR DETECTED (NotDetected)
--- NOTE | 2023-08-15 01:44 | History & Physical Report ---
Date of Service August 15, 2023 Assessment & Plan (1) Abdominal pain: Plan: 47-year-old male with past medical history significant for chronic alcohol abuse, ongoing alcoholism, chronic pancreatitis, GERD, Renae's esophagus, mood disorder, diabetes insulin requiring, history of PE recurrent on Eliquis, history of chronic pain, history of narcotic abuse, multiple admissions for alcoholism and pancreatitis comes with abdominal pain . Patient was recently in the ER on August 10, 2023 and diagnosed with the flu was prescribed Tamiflu. Patient states was recently in rehab and came back home 1 week ago. But again drinking alcohol about 6 beers daily. Last couple of days having severe abdominal pain. Nausea. Shortness of breath. Headache. Says having some blood in the stools. He complained about blood in the stools last 2 admissions. Asking for pain medication Dilaudid. Hemodynamics are stable. Afebrile. Abdominal pain Chronic pancreatitis Ongoing alcoholism Will keep him n.p.o. IV LR at 150 mill per hour IV Tylenol as needed for pain IV antiemetics Questionable blood in the stools Hemoglobin is stable Was seen by GI last admission and was recommended outpatient EGD and colonoscopy Will check stool for Hemoccult Alcoholism Ongoing Alcohol withdrawal protocol with gabapentin and IV Ativan as needed Thiamine and folic acid Close monitor History of PE Hold Eliquis until stools Hemoccult is back Diabetes Currently n.p.o. Cut back Lantus to 9 units daily Sliding scale Will monitor Depression On paroxetine DVT prophylaxis SCDs Disposition Med/tele Full code History of Present Illness Chief Complaint: Abdominal pain, alcoholism Primary Care Provider: Dhiraj Myers DO 47-year-old male with past medical history significant for chronic alcohol abuse, ongoing alcoholism, chronic pancreatitis, GERD, Renae's esophagus, mood disorder, diabetes insulin requiring, history of PE recurrent on Eliquis, history of chronic pain, history of narcotic abuse, multiple admissions for alcoholism and pancreatitis comes with abdominal pain . Patient was recently in the ER on August 10, 2023 and diagnosed with the flu was prescribed Tamiflu. Patient states was recently in rehab and came back home 1 week ago. But again drinking alcohol about 6 beers daily. Last couple of days having severe abdominal pain. Nausea. Shortness of breath. Headache. Says having some blood in the stools. He complained about blood in the stools last 2 admissions. Asking for pain medication Dilaudid. Hemodynamics are stable. Afebrile. Allergies Allergy/AdvReac Type Severity Reaction Status Date / Time No Known Allergies Allergy Verified 08/14/23 21:23 Home Medications Medication Instructions Recorded Confirmed Type pantoprazole 40 mg tablet,delayed 40 mg PO DAILYBB 01/03/23 08/14/23 History release apixaban 5 mg tablet (Eliquis) 5 mg PO BID 06/23/23 08/14/23 History paroxetine HCl 20 mg tablet 20 mg PO QAM #30 tabs 07/06/23 08/14/23 Rx insulin glargine 100 unit/mL 18 unit subcut QPM 08/10/23 08/14/23 History subcutaneous solution (Lantus U-100 Insulin) [id number] 1 cap PO TIDM 08/10/23 08/14/23 History 24,000-76,000-120,000 unit capsule,delayed rel (Creon) oseltamivir 75 mg capsule (Tamiflu) 75 mg PO BID 5 days #10 caps 08/10/23 08/14/23 Rx oxycodone 5 mg tablet 5 mg PO Q6H PRN Pain 08/10/23 08/14/23 History gabapentin 300 mg capsule 300 mg PO TID PRN Pain 08/14/23 08/14/23 History insulin lispro 100 unit/mL 0 unit subcut Q OTHER DAY PRN 08/14/23 08/14/23 H istory subcutaneous pen Hyperglycemia Past Med/Surg History Medical History Abdominal pain Epigastric abdominal pain Pancreatic duct stones Abdominal pain, acute, epigastric Retrosternal chest pain History of pulmonary embolism Alcohol withdrawal Alcoholic ketosis COVID-19 Nausea & vomiting Alcohol abuse Abdominal pain Encounter for pre-operative examination Acute hyperglycemia Encounter for alcohol abuse counseling and surveillance Encounter for tobacco use cessation counseling Alcohol abuse Pancreatitis Neuropathy Hyperglycemia Chest pain Abdominal pain Pulmonary embolism on chronic apixaban Depression Mood disorder Intentional drug overdose Suicidal ideation Suicide attempt Mood disorder Suicidal ideation Lumbar degenerative disc disease Panic disorder Depression History of substance abuse Alcohol abuse (Unknown) H/O acute pancreatitis "recurrent" Renae's esophagus (Unknown) "per EGD 11/23/09 " On 05/31/11 09:06 Martinez Jose wrote "per EGD 11/23/09 " DM type 2 (diabetes mellitus, type 2) Surgical History S/P lumbar fusion L4-S1 2014 H/O esophagogastroduodenoscopy "EGD 11/23/2009- mild gastritis, suspicious for gastroparesis, Z-line irregular EUS 02/04/2010- mild chronic pancreatitis, pronounced cholesterolosis of gallbladder, no biliary dilation or stones, probable gastroparesis EGD 10/31/2014- gastritis" Family History Father Alcohol abuse Social History Smoking Status: Never smoker Tobacco Type: Smokeless Tobacco (Dip or Chew) Second Hand Exposure: No; Do You Dip or Chew Tobacco: No; Hx Alcohol Use: Yes Alcohol type: beer Hx Substance Use: No Preferred Language: [place] Communication Ability: Effective Lean Process Deployment Consultant Required: No Beliefs That Will Affect Care: None marital status: Current Living Situation: Family Current Living Situation Comment: home with mom How many Children do You have: 3 Feels Safe at Home: Yes Assistive Devices: None Review of Systems Review of Systems: All systems reviewed & are unremarkable except as noted in HPI & below Physical Exam Physical Exam: General- Not in acute distress. Head- atraumatic Eyes- PERRL. ENT- oropharynx clear Neck- supple, no JVD. Lungs- clear to auscultation no wheezing or crackles. Heart- regular rhythm; no murmur, no gallop. Abdomen- normal bowel sounds, soft, diffuse tender no distension. Extremities- no pretibial edema, no erythema seen. Neuro- alert, oriented x 3; PERRL, no facial palsy; no dysarthria; moves extremities. Skin- warm & dry Results & Data Results & Data Vital Signs (Past 12 Hours) Vital Signs Temp Pulse Pulse Resp BP BP Pulse Ox 08/15/23 00:00 100 H 16 124/82 94 08/14/23 22:44 78 08/14/23 22:00 90 16 114/63 100 08/14/23 20:36 74 16 100 08/14/23 20:31 78 17 114/79 99 08/14/23 19:01 36.5 C 78 17 112/82 94 08/14/23 18:53 79 08/14/23 18:31 99 08/14/23 18:31 71 16 112/82 96 O2 Del Method O2 Flow Rate 08/15/23 00:00 Room Air 08/14/23 22:44 08/14/23 22:00 Room Air 08/14/23 20:36 Room Air 08/14/23 20:31 Room Air 08/14/23 19:01 Room Air 08/14/23 18:53 08/14/23 18:31 Room Air 0 08/14/23 18:31 Room Air Diagnostic Findings Laboratory Results WBC 5.47 K/ul (4.8-10.8) 08/14/23 18:50 RBC 4.68 M/uL (4.70-6.10) L 08/14/23 18:50 Hgb 14.9 g/dl (14.0-18.0) 08/14/23 18:50 Hct 42.7 % (42.0-52.0) 08/14/23 18:50 MCV 91.2 fL (80.0-100.0) 08/14/23 18:50 MCH 31.8 pg (25.0-34.0) 08/14/23 18:50 MCHC 34.9 g/dL (32.0-36.0) 08/14/23 18:50 RDW Std Deviation 38.7 fL (36.4-46.3) 08/14/23 18:50 RDW Coeff of Gucci 11.5 % (11.5-14.5) 08/14/23 18:50 Plt Count 271 K/uL (130-400) 08/14/23 18:50 MPV 10.1 fL (9.4-12.4) 08/14/23 18:50 Immature Gran % (Auto) 0.2 % 08/14/23 18:50 Neut % (Auto) 52.1 % 08/14/23 18:50 Lymph % (Auto) 36.7 % 08/14/23 18:50 [place] % (Auto) 7.3 % 08/14/23 18:50 Eos % (Auto) 3.3 % 08/14/23 18:50 Baso % (Auto) 0.4 % 08/14/23 18:50 Neut # (Auto) 2.85 K/uL (1.40-6.50) 08/14/23 18:50 Lymph # (Auto) 2.01 K/uL (1.20-3.40) 08/14/23 18:50 [place] # (Auto) 0.40 K/uL (0.11-0.59) 08/14/23 18:50 Eos # (Auto) 0.18 K/uL (0.00-0.50) 08/14/23 18:50 Baso # (Auto) 0.02 K/uL (0.00-0.20) 08/14/23 18:50 Immature Gran # (Auto) 0.01 K/uL (0.01-0.20) 08/14/23 18:50 PT 10.9 Seconds (9.0-12.0) 08/14/23 18:50 INR 1.0 (0.9-1.1) 08/14/23 18:50 Sodium 134 mmol/L (136-145) L 08/14/23 18:50 Potassium 3.7 mmol/L (3.5-5.1) 08/14/23 18:50 Chloride 100 mmol/L (98-107) 08/14/23 18:50 Carbon Dioxide 23 mmol/L (21-32) 08/14/23 18:50 Anion Gap 11 (3-11) 08/14/23 18:50 BUN 5 mg/dl (6-23) L 08/14/23 18:50 Creatinine 0.70 mg/dl (0.6-1.4) 08/14/23 18:50 Est Cr Clr Drug Dosing 140.1 ml/min 08/14/23 18:50 Est GFR ( Amer) 128.4 ml/min 08/14/23 18:50 Est GFR (Non-Af Amer) 110.8 ml/min 08/14/23 18:50 BUN/Creatinine Ratio 7.1 (10-20) L 08/14/23 18:50 Glucose 162 mg/dl (70-99(Fasting)) H 08/14/23 18:50 Calcium 9.7 mg/dl (8.6-10.3) 08/14/23 18:50 Phosphorus 2.5 mg/dl (2.5-4.9) 08/14/23 18:50 Magnesium 2.0 mg/dl (1.7-2.4) 08/14/23 18:50 Total Bilirubin 0.5 mg/dl (0.2-1.0) 08/14/23 18:50 Direct Bilirubin 0.1 mg/dl (0-0.2) 08/14/23 18:50 AST 58 U/L (13-39) H 08/14/23 18:50 ALT 44 U/L (7-52) 08/14/23 18:50 Alkaline Phosphatase 110 U/L (34-104) H 08/14/23 18:50 Troponin I High Sens 8.2 pg/ml (0-20) 08/14/23 18:50 Total Protein 7.7 gm/dl (6.0-8.3) 08/14/23 18:50 Albumin 4.2 gm/dl (3.4-5.0) 08/14/23 18:50 Globulin 3.5 gm/dl (2.5-4.0) 08/14/23 18:50 Albumin/Globulin Ratio 1.2 (0.9-2) 08/14/23 18:50 Lipase 7 U/L (11-82) L 08/14/23 18:50 Procalcitonin < 0.05 ng/ml (0-0.5) 08/14/23 18:50 Urine Color Yellow 08/14/23 23:35 Urine Appearance Clear (Clear) 08/14/23 23:35 Urine pH 5.5 (4.5-7.5) 08/14/23 23:35 Ur Specific [place] 1.010 (1.000-1.030) 08/14/23 23:35 Urine Protein Negative (Negative) 08/14/23 23:35 Urine Glucose (UA) Negative (Negative) 08/14/23 23:35 Urine Ketones Negative (Negative) 08/14/23 23:35 Urine Blood Negative (Negative) 08/14/23 23:35 Urine Nitrite Negative (Negative) 08/14/23 23:35 Urine Bilirubin Negative (Negative) 08/14/23 23:35 Urine Urobilinogen Negative (Negative) 08/14/23 23:35 Ur Leukocyte Esterase Negative (Negative) 08/14/23 23:35 Urine Opiates Screen Neg (Neg) 08/14/23 23:35 Ur Methadone, Qual Neg (Neg) 08/14/23 23:35 Urine Barbiturates Neg (Neg) 08/14/23 23:35 Ur Phencyclidine (PCP) Neg (Neg) 08/14/23 23:35 U Amphetamin/Meth Scrn Neg (Neg) 08/14/23 23:35 MDMA (Ecstasy) Screen Neg (Neg) 08/14/23 23:35 U Benzodiazepines Scrn Neg (Neg) 08/14/23 23:35 Ur Cocaine Metabolite Neg (Neg) 08/14/23 23:35 U Marijuana (THC) Screen Neg (Neg) 08/14/23 23:35 Ethyl Alcohol mg/dL 284.0 mg/dl (<10.0) H 08/14/23 18:50 Adenovirus (PCR) Not Detected (NotDetected) 08/14/23 23:35 B. pertussis DNA (PCR) Not Detected (NotDetected) 08/14/23 23:35 B.parapertussis DNA PCR Not Detected (NotDetected) 08/14/23 23:35 C. pneumoniae DNA (PCR) Not Detected (NotDetected) 08/14/23 23:35 Coronavirus OC43 (PCR) Not Detected (NotDetected) 08/14/23 23:35 Coronavirus HKU1 (PCR) Not Detected (NotDetected) 08/14/23 23:35 Coronavirus 229E (PCR) Not Detected (NotDetected) 08/14/23 23:35 SARS-CoV-2 (PCR) Not Detected (NotDetected) 08/14/23 23:35 Coronavirus NL63 (PCR) Not Detected (NotDetected) 08/14/23 23:35 Human Metapneumovir PCR Not Detected (NotDetected) 08/14/23 23:35 Influenza A (H3) PCR DETECTED (NotDetected) A* 08/14/23 23:35 Influenza Type B (PCR) Not Detected (NotDetected) 08/14/23 23:35 M. pneumoniae (PCR) Not Detected (NotDetected) 08/14/23 23:35 Parainfluenza 1 (PCR) Not Detected (NotDetected) 08/14/23 23:35 Parainfluenza 2 (PCR) Not Detected (NotDetected) 08/14/23 23:35 Parainfluenza 3 (PCR) Not Detected (NotDetected) 08/14/23 23:35 Parainfluenza 4 (PCR) Not Detected (NotDetected) 08/14/23 23:35 RSV (PCR) Not Detected (NotDetected) 08/14/23 23:35 Entero/Rhino (PCR) Not Detected (NotDetected) 08/14/23 23:35 Impressions Abdomen/Pelvis CT 08/14/23 22:45 Exam(s): CT ABDOMEN + PELVIS With Contrast IV Amt: 87 ML OPTIRAY 320 EXAM: CT Abdomen and Pelvis With Intravenous Contrast CLINICAL HISTORY: Reason for exam: upper abd pain, blood in stool, etoh. TECHNIQUE: Axial computed tomography images of the abdomen and pelvis with intravenous contrast. Automated exposure control was utilized for the study. A dose lowering technique was utilized adhering to the principles of ALARA. CONTRAST: Patient received 87 ML OPTIRAY 320 of IV contrast COMPARISON: CT abdomen pelvis August 10, 2023. FINDINGS: Lung bases: Unremarkable. No mass. No consolidation. ABDOMEN: Liver: Hepatic steatosis. Gallbladder and bile ducts: Cholecystectomy. No ductal dilation. Pancreas: Atrophy and calcifications in the pancreas, consistent with sequelae of pancreatitis. No ductal dilation. Spleen: Unremarkable. No splenomegaly. Adrenals: Unremarkable. No mass. Kidneys and ureters: Unremarkable. No hydronephrosis or delayed nephrogram. Stomach and bowel: Unremarkable. No obstruction. No mucosal thickening. PELVIS: Appendix: No findings to suggest acute appendicitis. Bladder: Unremarkable. No mass. Reproductive: Unremarkable as visualized. ABDOMEN and PELVIS: Intraperitoneal space: Unremarkable. No free air. No significant fluid collection. Bones/joints: Posterior lumbar fusion at L4-S1. No acute fracture. No dislocation. Soft tissues: Unremarkable. Vasculature: Unremarkable. No abdominal aortic aneurysm. Lymph nodes: Unremarkable. No enlarged lymph nodes. IMPRESSION: 1. Atrophy and calcifications in the pancreas, consistent with sequelae of pancreatitis. 2. Hepatic steatosis. 3. Cholecystectomy. Electronically signed by: Jeff Alamo MD 08/15/23 00:46 AM ECG Additional Comments: ECG. Normal sinus rhythm with rate of 82. No acute ST changes seen. Code Status & VTE Plan VTE Prophylaxis Plan VTE Prophylaxis will be ordered: Yes (1) Abdominal pain Abdominal location: generalized Qualified Code(s): R10.84 - Generalized abdominal pain
[2023-08-15] MEDS ORDERED: CARBOHYDRATES FOR HYPOGLYCEMIA PO PRN (02:29)
[2023-08-15] MEDS ORDERED: GABAPENTIN 1200MG ALCOHOL WITHDRAWAL LOAD PO STA (02:29)
[2023-08-15] MEDS ORDERED: GLUCOSE 40% GEL 15 GM TUBE PO PRN (02:29)
[2023-08-15] MEDS ORDERED: NITROGLYCERIN SL 0.4 MG/TAB TAB SL PRN (02:29)
[2023-08-15] MEDS ORDERED: GLUCOSE 10 TAB/TUBE PO PRN (02:29)
[2023-08-15] MEDS ORDERED: Ativan IV Alcohol Withdrawal--Active Protocol IV PRN (02:29)
[2023-08-15] MEDS ORDERED: oxyCODONE HCL IR 5 MG TAB (IMMEDIATE RELEASE) PO PRN (02:29)
[2023-08-15] MEDS ORDERED: LORazepam 3 MG in SYRINGE 1.5 ML IV PRN (02:29)
[2023-08-15] MEDS ORDERED: GLUCAGON FOR INJ 1 MG VIAL SQ PRN (02:29)
[2023-08-15] MEDS ORDERED: LORazepam 2 MG in SYRINGE 1 ML IV PRN (02:29)
[2023-08-15] MEDS ORDERED: LORazepam 1 MG in SYRINGE 0.5 ML IV PRN (02:29)
[2023-08-15] MEDS ORDERED: DEXTROSE 50% 50 ML SYRINGE IV PRN (02:29)
[2023-08-15] MEDS ORDERED: GABAPENTIN 600 MG TAB PO ONE (02:45)
[2023-08-15] MEDS: LACTATED RINGER'S 1,000 ML IV SCH ×2 (04:05→10:26)
[2023-08-15] MEDS: INSULIN ASPART PER UNIT CHARGE SC SCH ×4 (05:37→21:18)
[2023-08-15] MEDS: PANTOprazole 40 MG TAB PO SCH (07:02)
--- NOTE | 2023-08-15 07:02 | XRay Report ---
XR chest 1V portable HISTORY: Atypical chest pain. COMPARISON: Chest 08/10/2023. FINDINGS: The lungs are clear. Cardiac silhouette is normal in size. No pleural effusions. No pneumot horax. IMPRESSION: No acute process. ACT 112: Negative or not required by law. Electronically signed by: Ronak Vega M.D. 08/15/2023 7:01 AM
[2023-08-15] MEDS: ACETAMINOPHEN 1,000 MG/100 ML VIAL IV PRN ×2 (07:50→15:58)
[2023-08-15 08:04] LABS: Basophils # (auto) 0.01 K/uL (0.00-0.20); Basophils % (auto) 0.3 %; Hematocrit (blood only) 42.3 % (42.0-52.0); Hemoglobin 14.5 g/dl (14.0-18.0); Lymphocytes # (auto) 0.42 K/uL (1.20-3.40); Lymphocytes % (auto) 14.7 %; Mean Corpuscular Hemoglobin 31.7 pg (25.0-34.0); Mean Corpuscular Hgb Conc 34.3 g/dL (32.0-36.0); Mean Corpuscular Volume 92.4 fL (80.0-100.0); Mean Platelet Volume 9.2 fL (9.4-12.4); Monocytes # (auto) 0.03 K/uL (0.11-0.59); Platelet Count 240 K/uL (130-400); RDW Coefficient of Variation 11.6 % (11.5-14.5); RDW Standard Deviation 39.5 fL (36.4-46.3); Red Blood Count 4.58 M/uL (4.70-6.10); White Blood Count 2.86 K/ul (4.8-10.8)
[2023-08-15 08:25] LABS: BUN Creatinine Ratio 9.5 (10-20); Calcium 9.1 mg/dl (8.6-10.3); Creatinine Clr Calc Pharmacy 155.7 ml/min; Est GFR (African American) 134.1 ml/min; Est GFR (Non-African American) 115.7 ml/min; Magnesium 1.8 mg/dl (1.7-2.4); Potassium 4.5 mmol/L (3.5-5.1)
[2023-08-15 08:36] LABS: Troponin I High Sensitivity 2.6 pg/ml (0-20)
[2023-08-15] MEDS: LANTUS PER UNIT CHARGE SQ SCH (10:23)
[2023-08-15] MEDS: FAMOTIDINE 20 MG in SYRINGE 3 ML IV SCH (10:23)
[2023-08-15] MEDS: GABAPENTIN 600 MG TAB PO SCH ×3 (10:24→21:18)
[2023-08-15] MEDS: FOLIC ACID 1 MG TAB PO SCH (10:25)
[2023-08-15] MEDS: THIAMINE HCL 100 MG TAB PO SCH (10:25)
[2023-08-15] MEDS: PARoxetine HCL 20 MG TAB PO SCH (10:25)
--- NOTE | 2023-08-15 12:03 | Electrocardiogram Report ---
Test Reason : Blood Pressure : / mmHG Vent. Rate : 082 BPM Atrial Rate : 082 BPM P-R Int : 150 ms QRS Dur : 084 ms QT Int : 360 ms P-R-T Axes : 069 068 073 degrees QTc Int : 420 ms Normal sinus rhythm Normal ECG When compared with ECG of 10-AUG-2023 17:45, No significant change was found Confirmed by Mundo Ordonez ([id number]) on 08/15/2023 12:03:46 PM Referred By: Dhiraj Myers Confirmed By:Mundo Ordonez
[2023-08-15] MEDS: ONDANSETRON INJ 2 MG/ML 2 ML VIAL IV PRN ×2 (14:24→22:27)
--- NOTE | 2023-08-15 16:04 | Communication Note ---
Date of Service: August 15, 2023 Patient seen and examined at bedside. He is lying in the bed comfortably; not in any distress. He reports that abdominal pain is minimal at the moment. No signs or symptoms of alcohol withdrawal. On physical examination; Constitutional: Awake, alert oriented x 3; not in distress Respiratory: normal respiratory effort, lungs clear to auscultation, no wheeze, rales, rhonchi. Normal insp/exp effort, no accessory muscle use Cardiovascular: RRR, no murmur, no edema Vessels: no JVD or carotid bruit Chest: normal inspection of chest Abdomen: Mild tenderness in epigastric region Musculoskeletal: no cyanosis or clubbing, extremities motor strength 5/5 Skin: no rashes, warm and dry normal turgor Neurologic: PERRL, EOMI, accommodation nl, no face palsy, no dysarthria CN's II- XI intact bilaterally and moves all extremities Psychiatric: A+Ox3, euthymic affect Assessment/plan Chronic pancreatitis: Continue low-fat diet. Minimize narcotics. Follow-up as outpatient with GI Alcohol use disorder; continue alcohol withdrawal protocol with gabapentin and Ativan. Counseled regarding alcohol use Influenza A; he was diagnosed in August 10, 2022; completed Tamiflu course. reports minimal symptoms presently.
[2023-08-15] MEDS ORDERED: Nursing to Pharmacy Communication SCH (16:45)
[2023-08-16] MEDS: PANTOprazole 40 MG TAB PO SCH (06:19)
[2023-08-16 06:23] LABS: Basophils # (auto) 0.02 K/uL (0.00-0.20); Basophils % (auto) 0.4 %; Eosinophils # (auto) 0.07 K/uL (0.00-0.50); Eosinophils % (auto) 1.3 %; Hematocrit (blood only) 39.2 % (42.0-52.0); Hemoglobin 13.6 g/dl (14.0-18.0); Immature Granulocytes # (auto) 0.02 K/uL (0.01-0.20); Immature Granulocytes % (auto) 0.4 %; Lymphocytes # (auto) 1.56 K/uL (1.20-3.40); Mean Corpuscular Hemoglobin 31.8 pg (25.0-34.0); Mean Corpuscular Hgb Conc 34.7 g/dL (32.0-36.0); Mean Corpuscular Volume 91.6 fL (80.0-100.0); Mean Platelet Volume 9.8 fL (9.4-12.4); Monocytes # (auto) 0.42 K/uL (0.11-0.59); Monocytes % (auto) 7.5 %; Neutrophils # (auto) 3.48 K/uL (1.40-6.50); Neutrophils % (auto) 62.4 %; Platelet Count 256 K/uL (130-400); RDW Coefficient of Variation 11.5 % (11.5-14.5); RDW Standard Deviation 38.9 fL (36.4-46.3); Red Blood Count 4.28 M/uL (4.70-6.10); White Blood Count 5.57 K/ul (4.8-10.8)
[2023-08-16 06:42] LABS: Albumin Level 3.1 gm/dl (3.4-5.0); BUN Creatinine Ratio 14.9 (10-20); Bilirubin Direct 0.2 mg/dl (0-0.2); Bilirubin,Total 0.8 mg/dl (0.2-1.0); Calcium 9.2 mg/dl (8.6-10.3); Creatinine Clr Calc Pharmacy 146.4 ml/min; Est GFR (African American) 130.8 ml/min; Est GFR (Non-African American) 112.8 ml/min; Potassium 3.6 mmol/L (3.5-5.1)
[2023-08-16] MEDS: GABAPENTIN 600 MG TAB PO SCH ×2 (07:26→14:21)
[2023-08-16] MEDS: PARoxetine HCL 20 MG TAB PO SCH (08:58)
[2023-08-16] MEDS: THIAMINE HCL 100 MG TAB PO SCH (08:58)
[2023-08-16] MEDS: FOLIC ACID 1 MG TAB PO SCH (08:59)
[2023-08-16] MEDS: INSULIN ASPART PER UNIT CHARGE SC SCH ×4 (09:03→21:34)
[2023-08-16] MEDS: LANTUS PER UNIT CHARGE SQ SCH (09:03)
[2023-08-16] MEDS: FAMOTIDINE 20 MG in SYRINGE 3 ML IV SCH (09:03)
[2023-08-16] MEDS: ONDANSETRON INJ 2 MG/ML 2 ML VIAL IV PRN (14:24)
[2023-08-16] MEDS ORDERED: guaiFENesin/DEXTROM SYRUP 100MG/10MG 5ML UDC PO PRN (14:34)
--- NOTE | 2023-08-16 15:30 | Hospitalist Progress Note ---
Date of Service August 16, 2023 Assessment & Plan (1) Abdominal pain: Plan: 47-year-old male with past medical history significant for chronic alcohol abuse, ongoing alcoholism, chronic pancreatitis, GERD, Renae's esophagus, mood disorder, diabetes insulin requiring, history of PE recurrent on Eliquis, history of chronic pain, history of narcotic abuse, multiple admissions for alcoholism and pancreatitis comes with abdominal pain . Patient was recently in the ER on August 10, 2023 and diagnosed with the flu was prescribed Tamiflu. Patient states was recently in rehab and came back home 1 week ago. But again drinking alcohol about 6 beers daily. Last couple of days having severe abdominal pain. Nausea. Shortness of breath. Headache. Says having some blood in the stools. He complained about blood in the stools last 2 admissions. Asking for pain medication Dilaudid. Hemodynamics are stable. Afebrile. He is being managed for the following: Abdominal pain Chronic pancreatitis Ongoing alcoholism Status post IV fluid. Tolerating diet well, no epigastric tenderness on exam today. Will use IV Tylenol for pain management, avoid opiates. Nausea medications as needed. Questionable blood in the stools Hemoglobin is stable Was seen by GI last admission and was recommended outpatient EGD and colonoscopy Monitor H&H. Follow-up with GI as an outpatient. fobt sent, follow. Influenza A: he was diagnosed in August 10, 2022; completed Tamiflu course. reports minimal symptoms presently. Alcoholism Ongoing Alcohol withdrawal protocol with gabapentin and IV Ativan as needed Thiamine and folic acid Close monitor History of PE: Hold Eliquis until stools Hemoccult is back Diabetes: ssi while in hospital, monitor. Cut back Lantus to 9 units daily. Depression: On paroxetine DVT prophylaxis: SCDs Disposition: Med/tele Full code Admission and Anticipated Discharge Date Admission Date: August 15, 2023 Subjective Patient was seen and examined at bedside. Patient was lying in bed, on room air, sleeping, woke up for exam. No abdominal tenderness on examination. Patient reports tolerating diet well. Tried to discuss about alcohol cessation, patient not interested in discussing. Patient does have dry cough, recent flu infection. Denies chest pain or headache or dizziness. Physical Exam Physical Exam: Constitutional: Awake, alert oriented x 3; not in distress Respiratory: normal respiratory effort, lungs clear to auscultation, no wheeze, rales, rhonchi. Normal insp/exp effort, no accessory muscle use Cardiovascular: RRR, no murmur, no edema Vessels: no JVD or carotid bruit Chest: normal inspection of chest Abdomen: No tenderness in epigastric region Musculoskeletal: no cyanosis or clubbing, extremities motor strength 5/5 Skin: no rashes, warm and dry normal turgor Neurologic: PERRL, EOMI, accommodation nl, no face palsy, no dysarthria CN's II- XI intact bilaterally and moves all extremities Psychiatric: A+Ox3, euthymic affect Results & Data Results & Data Vital Signs (Past 12 Hours) Vital Signs Temp Pulse Pulse Resp BP Pulse Ox O2 Del Method 08/16/23 14:13 79 08/16/23 12:06 36.5 C 75 16 110/74 98 Room Air 08/16/23 07:36 36.4 C L 79 16 96/60 L 97 Room Air 08/16/23 07:28 Room Air 08/16/23 05:51 70 (1) Abdominal pain Abdominal location: generalized Qualified Code(s): R10.84 - Generalized abdominal pain
[2023-08-17] MEDS ORDERED: GABAPENTIN 600 MG TAB PO SCH (03:00)
[2023-08-17] MEDS: PANTOprazole 40 MG TAB PO SCH (03:28)
[2023-08-17 07:10] LABS: Hematocrit (blood only) 41.5 % (42.0-52.0); Hemoglobin 14.3 g/dl (14.0-18.0); Mean Corpuscular Hgb Conc 34.5 g/dL (32.0-36.0); Mean Corpuscular Volume 92.8 fL (80.0-100.0); Mean Platelet Volume 9.3 fL (9.4-12.4); Platelet Count 227 K/uL (130-400); RDW Coefficient of Variation 11.6 % (11.5-14.5); RDW Standard Deviation 39.6 fL (36.4-46.3); Red Blood Count 4.47 M/uL (4.70-6.10); White Blood Count 4.94 K/ul (4.8-10.8)
[2023-08-17 07:35] LABS: BUN Creatinine Ratio 8.5 (10-20); Calcium 9.2 mg/dl (8.6-10.3); Creatinine Clr Calc Pharmacy 166.2 ml/min; Est GFR (African American) 137.8 ml/min; Est GFR (Non-African American) 118.9 ml/min; Magnesium 1.7 mg/dl (1.7-2.4); Phosphorus 3.5 mg/dl (2.5-4.9); Potassium 3.6 mmol/L (3.5-5.1)
[2023-08-17] MEDS: ONDANSETRON INJ 2 MG/ML 2 ML VIAL IV PRN (07:48)
[2023-08-17 08:23] VITALS: RESP 18
[2023-08-17] MEDS: THIAMINE HCL 100 MG TAB PO SCH (08:27)
[2023-08-17] MEDS: FOLIC ACID 1 MG TAB PO SCH (08:27)
[2023-08-17] MEDS: PARoxetine HCL 20 MG TAB PO SCH (08:27)
[2023-08-17] MEDS: FAMOTIDINE 20 MG in SYRINGE 3 ML IV SCH (08:28)
[2023-08-17] MEDS: INSULIN ASPART PER UNIT CHARGE SC SCH (09:09)
[2023-08-17] MEDS: LANTUS PER UNIT CHARGE SQ SCH (09:09)
[2023-08-17 11:07] VITALS: TEMP 98.4; O2SAT 97
--- NOTE | 2023-08-17 12:00 | Discharge Summary ---
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 Patient was recently in the ER on August 10, 2023 and diagnosed with the flu was prescribed Tamiflu. Patient states was recently in rehab and came back home 1 week ago. But again drinking alcohol about 6 beers daily. Last couple of days having severe abdominal pain. Nausea. Shortness of breath. Headache. Says having some blood in the stools. He complained about blood in the stools last 2 admissions. Asking for pain medication Dilaudid. Hemodynamics are stable. Afebrile. Admission Exam Per Admitting Provider General- Not in acute distress. Head- atraumatic Eyes- PERRL. ENT- oropharynx clear Neck- supple, no JVD. Lungs- clear to auscultation no wheezing or crackles. Heart- regular rhythm; no murmur, no gallop. Abdomen- normal bowel sounds, soft, diffuse tender no distension. Extremities- no pretibial edema, no erythema seen. Neuro- alert, oriented x 3; PERRL, no facial palsy; no dysarthria; moves extremities. Skin- warm & dry Principal Diagnosis Chronic pancreatitis Ongoing alcoholism Influenza A Discharge Exam Constitutional: Awake, alert oriented x 3; not in distress Respiratory: normal respiratory effort, lungs clear to auscultation, no wheeze, rales, rhonchi. Normal insp/exp effort, no accessory muscle use Cardiovascular: RRR, no murmur, no edema Vessels: no JVD or carotid bruit Chest: normal inspection of chest Abdomen: No tenderness in epigastric region Musculoskeletal: no cyanosis or clubbing, extremities motor strength 5/5 Skin: no rashes, warm and dry normal turgor Neurologic: PERRL, EOMI, accommodation nl, no face palsy, no dysarthria CN's II- XI intact bilaterally and moves all extremities Psychiatric: A+Ox3, euthymic affect Discharge Data Allergies Allergy/AdvReac Type Severity Reaction Status Date / Time No Known Allergies Allergy Verified 08/14/23 21:23 Consultations 08/15/23 00:32 ED Decision to Admit Stat Ordered Studies 08/14/23 22:45 CT abd pelvis IV con only Stat Hospital Course (1) Abdominal pain: 47-year-old male with past medical history significant for chronic alcohol abuse, ongoing alcoholism, chronic pancreatitis, GERD, Renae's esophagus, mood disorder, diabetes insulin requiring, history of PE recurrent on Eliquis, history of chronic pain, history of narcotic abuse, multiple admissions for alcoholism and pancreatitis comes with abdominal pain . Patient was recently in the ER on August 10, 2023 and diagnosed with the flu was prescribed Tamiflu. Patient states was recently in rehab and came back home 1 week ago. But again drinking alcohol about 6 beers daily. Last couple of days having severe abdominal pain. Nausea. Shortness of breath. Headache. Says having some blood in the stools. He complained about blood in the stools last 2 admissions. Asking for pain medication Dilaudid. Hemodynamics are stable. Afebrile. He was managed for the following: Abdominal pain Chronic pancreatitis Ongoing alcoholism Status post IV fluid. Tolerating diet well, no epigastric tenderness on exam. Will use IV Tylenol for pain management, avoid opiates. Nausea medications as needed. Patient reports feeling better and insisted on going home today. Patient explained the need for staying till the withdrawal window is over due to risks of tremor/hallucinations/seizures/arrhythmia/, patient not interested in staying in the hospital and would like to go home. Patient explained in any event he finds himself with worsening symptoms, he is encouraged to report back to emergency immediately. Upon discussing regarding alcohol cessation, patient does not seem interested and does not think he will be able to cut down immediately. Questionable blood in the stools Hemoglobin is stable Was seen by GI last admission and was recommended outpatient EGD and colonoscopy Monitor H&H. Follow-up with GI as an outpatient. FOBT not collected, hemoglobin has been stable/better. Influenza A: he was diagnosed in August 10, 2022; completed Tamiflu course. reports minimal symptoms presently. Alcoholism Ongoing Alcohol withdrawal protocol with gabapentin and IV Ativan as needed Thiamine and folic acid Patient insisted on going home today. See above. History of PE: Will resume Eliquis as hemoglobin has been stable/better, FOBT not collected. No further reports of blood in the stool per patient. Diabetes: ssi while in hospital, monitor. Cut back Lantus to 9 units daily. Depression: On paroxetine DVT prophylaxis: SCDs Disposition: Med/tele Full code Patient is being discharged with following instruction: Follow-up with your primary care physician within a week time and likely you will need labs CBC/CMP/magnesium/phosphorus. Since you were advised to stay until the alcohol withdrawal window is over but you insisted on going home today, recommend that you come back to the hospital immediately if you have any signs of worsening mentation/shaking/nausea/vomiting/tremors/hallucinations/seizures. Follow-up with GI as an outpatient for your already recommended outpatient EGD and colonoscopy. Take your medications as prescribed. Please make sure that you are able to get your medications today by calling your pharmacy before you leave the hospital so that your treatment continuity is not broken. Home Health Attestation I certify that this patient is under my care and that I, or a physicians photographer's assistant working with me, had a face to-face encounter that meets the home health [id number] encounter requirements with this patient. The encounter with the patient was in whole, or in part, for the following medical condition, which is the primary reason for home health care (list medical condition): I certify that, based on my findings, the following services are medically necessary home health services: My clinical findings support the need for the above services because: Further, I certify that my clinical findings support that this patient is homebound (i.e. absences from home require considerable and taxing effort and are for medical reasons or congregational services or infrequently or of short duration when for other reasons) because: Certification for Home Health Services: Based on the above findings, I certify that this patient is confined to the home and needs intermittent penitentiary care, physical therapy and/or speech therapy or continues to need occupational therapy. The patient is under my care, and I have initiated the establishment of the plan of care. This patient will be followed by a physician who will periodically review the plan of care. Total Time Total Time Spent Total Time Spent (In Minutes): 45 Discharge Plan Discharge Items Patient Disposition: Home - Self-Care Reason For Visit: ABDOMINAL PAIN, FLU, ALCOHOLISM Discharge Diagnosis: Chronic pancreatitis Ongoing alcoholism Influenza A Activity: Resume your previous activity Non-emergency contact: Primary Care Provider Call non-emergency contact if: you have any medication questions, your symptoms worsen and your temperature is above 101.5 Follow-up/Referrals: Dhiraj Myers, [Primary Care Provider] - Diet: Carb Consistent or DM2 and Low Fat Addtl Attending Provider Instructions: Follow-up with your primary care physician within a week time and likely you will need labs CBC/CMP/magnesium/phosphorus. Since you were advised to stay until the alcohol withdrawal window is over but you insisted on going home today, recommend that you come back to the hospital immediately if you have any signs of worsening mentation/shaking/nausea/vomiting/tremors/hallucinations/seizures. Follow-up with GI as an outpatient for your already recommended outpatient EGD and colonoscopy. Take your medications as prescribed. Please make sure that you are able to get your medications today by calling your pharmacy before you leave the hospital so that your treatment continuity is not broken. Pending Studies at Discharge: No Stand-Alone Forms: [facility], Smoking Cessation Medications and DC Order Prescriptions: New folic acid 1 mg Tablet 1 mg PO QAM Qty: 30 0RF thiamine HCl (vitamin B1) 100 mg Tablet 100 mg PO QAM Qty: 30 0RF ondansetron 4 mg tablet,disintegrating 4 mg PO BID PRN (Reason: nausea and vomiting) Qty: 20 0RF Continued paroxetine HCl 20 mg Tablet 20 mg PO QAM Qty: 30 0RF pantoprazole 40 mg tablet,delayed release (DR/EC) 40 mg PO DAILYBB Eliquis 5 mg tablet 5 mg PO BID oxycodone 5 mg tablet 5 mg PO Q6H PRN (Reason: Pain) Creon 24,000-76,000 -120,000 unit capsule,delayed release(DR/EC) 1 cap PO TIDM gabapentin 300 mg capsule 300 mg PO TID PRN (Reason: Pain) insulin lispro 100 unit/mL insulin pen 0 unit SUBCUT Q OTHER DAY PRN (Reason: Hyperglycemia) Rx Instructions: TAKE FOR BSG GREATER THAN 200 Changed insulin glargine [Lantus U-100 Insulin] 100 unit/mL solution 9 unit SUBCUT QPM Qty: 10 0RF Rx Instructions: Take 9 units every evening at 7pm Discontinued oseltamivir [Tamiflu] 75 mg capsule 75 mg PO BID 5 Days Qty: 10 0RF Discharge Orders: Discharge Order (Routine); Ordered 08/17/23 Ordered By: Emanuel Flood Admission Data Admit Date/Time: 08/15/23 01:31 Attending Provider: Emanuel Flood Admit Provider: Jed Sousa Primary Care Provider: Dhiraj Myers Other Providers: Jed Sousa
[2023-08-17 12:04] VITALS: BP 132/78; PULSE 114
[2023-08-18] MEDS ORDERED: GABAPENTIN 600 MG TAB PO SCH (15:00)
== END 2023-08-17 12:39 | disposition home or self-care (01) | DRG 440 ==
LOC: ED 18:38 → SUATTDRO 08-15 01:31 → EDINP 08-15 01:31 → 2N 08-15 02:30

== ENCOUNTER 2024-10-03 19:27 | Inpatient (IN) ==
[2024-10-03 20:12] LABS: Appearance Urine Clear (Clear); Bilirubin Urine Negative (Negative); Blood Urine Negative (Negative); Color Urine Yellow; Glucose Urine UA 3+ (Negative); Ketones Urine Negative (Negative); Leukocyte Esterase Urine Negative (Negative); Nitrite Urine Negative (Negative); Protein Urine Negative (Negative); Specific Gravity Urine 1.008 (1.000-1.030); Urobilinogen Urine Negative (Negative); pH Urine 5.5 (4.5-7.5)
[2024-10-03 20:17] LABS: Basophils # (auto) 0.04 K/uL (0.00-0.20); Basophils % (auto) 0.8 %; Eosinophils # (auto) 0.08 K/uL (0.00-0.50); Eosinophils % (auto) 1.5 %; Hematocrit (blood only) 43.4 % (42.0-52.0); Hemoglobin 15.7 g/dl (14.0-18.0); Immature Granulocytes # (auto) 0.01 K/uL (0.01-0.20); Immature Granulocytes % (auto) 0.2 %; Lymphocytes # (auto) 1.36 K/uL (1.20-3.40); Lymphocytes % (auto) 25.8 %; Mean Corpuscular Hgb Conc 36.2 g/dL (32.0-36.0); Mean Corpuscular Volume 93.9 fL (80.0-100.0); Mean Platelet Volume 9.4 fL (9.4-12.4); Monocytes # (auto) 0.44 K/uL (0.11-0.59); Monocytes % (auto) 8.3 %; Neutrophils # (auto) 3.34 K/uL (1.40-6.50); Neutrophils % (auto) 63.4 %; Platelet Count 137 K/uL (130-400); RDW Coefficient of Variation 11.7 % (11.5-14.5); RDW Standard Deviation 40.2 fL (36.4-46.3); Red Blood Count 4.62 M/uL (4.70-6.10); White Blood Count 5.27 K/ul (4.8-10.8)
[2024-10-03 20:33] LABS: Albumin Globulin Ratio 1.3 (0.9-2); Albumin Level 4.2 gm/dl (3.4-5.0); BUN Creatinine Ratio 8.3 (10-20); Bilirubin,Total 1.2 mg/dl (0.2-1.0); Calcium 9.9 mg/dl (8.6-10.3); Globulin 3.2 gm/dl (2.5-4.0); Potassium 4.1 mmol/L (3.5-5.1); Total Protein 7.4 gm/dl (6.0-8.3)
--- NOTE | 2024-10-03 21:42 | Emergency Department Note ---
Impression & Plan Abdominal pain, Chronic pancreatitis, Alcohol use disorder, Chest pain ED Provider Note CHIEF COMPLAINT: Abdominal pain HISTORY OF PRESENTING ILLNESS: This 48-year-old male patient presents to the emergency department for evaluation of abdominal pain that radiates into his chest and back. Having SOB and chest pain with the symptoms as well. The patient has a history of PE, but is on Eliquis. Symptoms started yesterday morning and getting progressively worse. Having nausea and vomiting as well. Having increased reflux symptoms as well. The patient has a history of alcohol abuse as well as pancreatitis and gastritis. He is a diabetic and his blood sugars have been in the high 200's and low 300's since the symptoms started. He has been adjusting his medication for his diabetes. He continues to drink 8-9 beers a day and states that he has had 8-9 beers already today. The patient is interested in detox because he knows the alcohol is affecting his symptoms. He has never had seizures from withdrawal, but does get very shaky and gets sick from withdrawal. REVIEW OF SYSTEMS: See HPI for pertinent positives and pertinent negatives. ALLERGIES: NKDA MEDICATIONS: See below PAST MEDICAL HISTORY: See below PHYSICAL EXAM: VITALS: Vitals are noted on the nurse's note and reviewed by myself. GENERAL: Non toxic, in no acute distress, non-diaphoretic. SKIN: Capillary refill <2 sec. EYES: PERRLA. EOMI. Conjunctivae without injection, sclerae without icterus. NOSE: Patent without discharge. MOUTH: Mucous membranes moist. Uvula midline. Airway patent. NECK: Supple without nuchal rigidity. HEART: Regular rate and rhythm without murmurs gallops or rubs. LUNGS: Clear to auscultation bilaterally without wheezes, rales or rhonchi. No retractions or accessory muscle use. ABDOMEN: Positive bowel sounds x 4. Normal tympanic percussion. Soft, significantly tender to palpation diffusely over the entire abdomen. No masses or hepatosplenomegaly. Estrella sign negative. No CVA tenderness. No guarding, rigidity, or rebound tenderness. No focal RLQ or LLQ tenderness. MUSCULOSKELETAL: No gross musculoskeletal defects. Bilateral lower extremities are nontender to palpation. No edema of the bilateral lower extremities. Pulses 2+ and equal in the bilateral upper and lower extremities. NEURO: Patient was alert and oriented. No focal neurological deficits. DIFFERENTIAL DIAGNOSIS: Differential diagnosis includes hepatitis, pancreatitis, cholecystitis, cholelithiasis, appendicitis, kidney stone, pyelonephritis, UTI, gastritis, gastroenteritis, mesenteric adenitis, obstruction, constipation, hernia, abdominal abscess, perforation, diverticulitis, IBD, ischemic colitis, abdominal aortic aneurysm, testicular torsion, prostatitis, or others. ED COURSE AND MEDICAL DECISION MAKING: MEDICATIONS GIVEN: Morphine 4 mg IV. Zofran 4 mg IV. Ativan 1 mg IV. Folic acid 1 mg IV, thiamine 100 mg IV, multivitamin 1 tablet p.o., 1 L normal saline solution bolus. Pepcid 20 mg IV and Protonix 40 mg IV. Dilaudid 0.5 mg IV. MONITOR: Continuous pvc monitor: Order was placed for continuous pvc monitor. Patient was placed on the pvc monitor and continuous pulse ox. Patient was noted to be in normal sinus rhythm at an initial rate of 90 bpm per my interpretation. EKG: EKG was interpreted by myself as normal sinus rhythm at 96 bpm with no acute ST or T wave changes and no significant change from his previous EKG. INTERPRETATION OF LABS: I interpreted the labs with full lab results as below in the lab section of this note. Laboratory results pertinent to the emergent complaint are discussed in the MDM section below. The patient was advised to follow up with their PCP and/or specialist(s) for further outpatient monitoring and management of any abnormal results. INTERPRETATION OF IMAGING: Imaging studies were interpreted by myself and read by radiology as per the imaging section of this note. The patient was advised to follow up with their PCP and/or specialist(s) for further outpatient management of any non-emergent abnormal findings. CTA of the chest with IV contrast was negative for PE, pneumonia, or other acute abnormalities. CT scan of the abdomen pelvis with IV contrast showed chronic pancreatitis changes with parenchymal calcifications, gland atrophy, and duct dilation. No CT evidence of acute pancreatitis. Fluid within loops of small bowel. This could be incidental or could represent a nonspecific enteritis. CHRONIC MEDICAL/SOCIAL CONDITIONS AFFECTING CARE: Alcohol use disorder CONSULTATIONS: On-call hospitalist MDM SUMMARY: The patient was seen during a time of extreme volume and extreme acuity. Nursing triage protocols were initiated with IV lock, labs, and/or imaging studies conducted by protocol in the triage area. The patient was examined by myself once they were taken back to an exam room. The patient presents for evaluation of abdominal pain that radiates to his chest and back along with shortness of breath. The patient has a history of pancreatitis and gastritis and states the symptoms feel similar. The patient also has a history of PE, but is on Eliquis. He also has a history of alcohol abuse and is requesting detox. The patient was given a broken down banana bag as well as Ativan 1 mg IV to help alcohol withdrawal symptoms. He was given morphine 4 mg IV and Zofran 4 mg IV for his pain followed by Dilaudid 0.5 mg IV. He was also given Pepcid 20 mg IV and Protonix 40 mg IV given his history of gastritis and alcohol abuse. White blood cell count normal at 5.27. Hemoglobin normal at 15.7. Platelet count normal at 137. Coags were normal with a normal INR. Sodium low at 130, glucose 209, total bilirubin 1.2, AST 61, ALT 56, and alk phos 150. CMP otherwise without concerning abnormalities. Magnesium normal. Lipase normal at 8. Urinalysis with 3+ glucose, but otherwise negative. Urine drug screen positive for opiates, but the patient's urine sample was obtained after his dose of morphine. Medical alcohol level 299.2. CTA of the chest with IV contrast was negative for PE, pneumonia, or other acute abnormalities. CT scan of the abdomen pelvis with IV contrast showed chronic pancreatitis changes with parenchymal calcifications, gland atrophy, and duct dilation. No CT evidence of acute pancreatitis. Fluid within loops of small bowel. This could be incidental or could represent a nonspecific enteritis. Given the patient's abdominal pain with a history of chronic pancreatitis as well as the patient's alcohol abuse and wish for detox, the patient will be admitted for further evaluation and treatment. I spoke with the on-call hospitalist who agreed to admit the patient for further management. Please refer to their dictation for further details. The patient's care was transferred in stable condition. DIAGNOSIS: Abdominal pain Chest pain Alcohol use disorder Chronic pancreatitis Past Med/Surg History Problem List (Updated 10/04/24 @ 07:48 by Clau Chu PA-C) Chest pain (Acute) Influenza A (Acute) Chronic abdominal pain (Acute) Alcoholic gastritis (Acute) Nausea (Acute) History of alcohol abuse (Acute) Abdominal pain (Acute) Influenza A (Acute) Lower abdominal pain Bright red blood per rectum (Acute) Alcohol abuse (Acute) Acute GI bleeding (Acute) Rectal bleed Alcohol use disorder (Acute) Chronic pancreatitis (Acute) Intussusception (Acute) Abdominal pain Substance or medication-induced depressive disorder Alcohol use disorder, severe, dependence Epigastric abdominal pain (Acute) Gastritis (Acute) Alcohol dependence (Acute) SBO (small bowel obstruction) (Acute) Fall (Acute) DKA (diabetic ketoacidosis) (Acute) Acute on chronic pancreatitis (Acute) Alcohol abuse (Acute) Hyperglycemia due to type 2 diabetes mellitus (Acute) Hyperglycemic crisis in diabetes mellitus Alcohol abuse (Acute) Acute hyperglycemia (Acute) History of acute pancreatitis (Acute) Alcohol withdrawal (Acute) Acute hyperglycemia (Acute) Acute epigastric pain (Acute) Hyponatremia Pancreatitis (Acute) COVID-19 (Acute) Chronic pancreatitis (Acute) Acute alcoholic pancreatitis (Acute) Acute hyperglycemia (Acute) Elevated LFTs (Acute) Recurrent pancreatitis (Acute) Alcohol withdrawal DVT prophylaxis Tobacco use Alcohol intoxication (Acute) Dehydration (Acute) Acute alcoholic pancreatitis Alcohol abuse (Acute) Alcohol abuse (Acute) Hypotension (Acute) Alcohol abuse (Acute) Acute hyperglycemia (Acute) Vomiting (Acute) Epigastric abdominal pain (Acute) Acute alcoholic pancreatitis (Acute) Acute hyperglycemia (Acute) Acidosis, lactic (Acute) Acute pancreatitis (Acute) Acute hyperglycemia (Acute) Acute bilateral upper abdominal pain (Acute) Alcohol withdrawal Pancreatitis (Acute) Lactic acidosis (Acute) Intractable abdominal pain (Acute) Encounter for pre-operative examination Pancreatitis (Acute) Alcohol abuse (Acute) Encounter for tobacco use cessation counseling (Acute) Encounter for alcohol abuse counseling and surveillance (Acute) Acute hyperglycemia (Acute) DM type 2 (diabetes mellitus, type 2) (Chronic) Renae's esophagus (Chronic Unknown) "per EGD 11/23/09 " On 05/31/11 09:06 Martinez Jose wrote "per EGD 11/23/09 " H/O acute pancreatitis (Chronic) "recurrent" Alcohol abuse (Chronic Unknown) History of substance abuse (Chronic) Depression (Chronic) Panic disorder (Chronic) Lumbar degenerative disc disease (Chronic) Suicidal ideation (Chronic) Mood disorder (Chronic) Mood disorder (Chronic) Depression (Chronic) H/O esophagogastroduodenoscopy (Chronic) "EGD 11/23/2009- mild gastritis, suspicious for gastroparesis, Z-line irregular EUS 02/04/2010- mild chronic pancreatitis, pronounced cholesterolosis of gallbladder, no biliary dilation or stones, probable gastroparesis EGD 10/31/2014- gastritis" Abdominal pain Chest pain (Acute) Hyperglycemia (Acute) Neuropathy (Acute) Medical History Abdominal pain Pancreatic duct stones Abdominal pain, acute, epigastric Retrosternal chest pain History of pulmonary embolism Alcohol withdrawal Alcoholic ketosis COVID-19 Nausea & vomiting Alcohol abuse Abdominal pain Surgical History S/P lumbar fusion L4-S1 2014 Family History Father Alcohol abuse Social History Smoking Status: Never smoker Tobacco Type: Smokeless Tobacco (Dip or Chew) Second Hand Exposure: No; Do You Dip or Chew Tobacco: Yes; Hx Alcohol Use: Yes Alcohol type: beer Hx Substance Use: No Preferred Language: Estonian Communication Ability: Effective Dietary Assistant Required: No Beliefs That Will Affect Care: None marital status: Current Living Situation: Parent Current Living Situation Comment: mobile home with mother How many Children do You have: 3 Feels Safe at Home: Yes Safety Concerns: Feels Safe At This Time Assistive Devices: None Allergies Allergies Allergy/AdvReac Type Severity Reaction Status Date / Time No Known Allergies Allergy Verified 08/14/23 21:23 Home Meds Home Medications Medication Instructions Recorded Confirmed pantoprazole 40 mg tablet,delayed 40 mg PO DAILYBB 01/03/23 10/04/24 release apixaban 5 mg tablet (Eliquis) 5 mg PO BID 06/23/23 10/04/24 albuterol sulfate 90 mcg/actuation 2 puff inhalation Q6 PRN Shortness 02/01/24 10/04/24 aerosol inhaler Of Breath cyclobenzaprine 10 mg tablet 10 mg PO BID PRN Muscle Spasm 02/01/24 10/04/24 duloxetine 20 mg capsule,delayed 20 mg PO QAM 02/01/24 10/04/24 release empagliflozin 10 mg tablet 10 mg PO DAILY 02/01/24 10/04/24 (Jardiance) insulin glargine 100 unit/mL 18 unit subcut HS 02/01/24 10/04/24 subcutaneous solution (Lantus U-100 Insulin) paroxetine HCl 30 mg tablet 30 mg PO QAM 06/04/24 10/04/24 Previous Rx's Medication Instructions Recorded folic acid 1 mg tablet 1 mg PO QAM #30 tabs 08/17/23 ondansetron 4 mg disintegrating 4 mg PO BID PRN nausea and 08/17/23 tablet vomiting #20 tabs thiamine HCl (vitamin B1) 100 mg 100 mg PO QAM #30 tabs 08/17/23 tablet Results & Data (ED) Vital Signs Vital Signs - 24 hr 10/03/24 19:38 10/03/24 23:24 10/03/24 23:37 Temperature 36.5 C Temperature Source Temporal Artery Scan Pulse Rate 102 H 86 Pulse Rate [Apical] 92 H Pulse Rhythm [Apical] Regular Respiratory Rate 18 16 Respiratory Effort / Characteristics Non-Labored Spontaneous Non-Labored Respiratory Depth Normal Normal Respiratory Pattern Regular Blood Pressure 149/89 H Blood Pressure [Right Arm] 121/83 Blood Pressure Mean 109 Blood Pressure Mean [Right Arm] 95 Blood Pressure Position Semi-fowlers Pulse Oximetry 96 98 Oxygen Delivery Method Room Air Room Air Sepsis Recent Fever Within 48 Hours No Sepsis New/Unexplained Change in Mental Status N/A Sepsis Action Taken by Nursing No Action Required 10/03/24 23:58 10/04/24 00:59 Temperature Temperature Source Pulse Rate Pulse Rate [Apical] 94 H 99 H Pulse Rhythm [Apical] Respiratory Rate 18 20 Respiratory Effort / Characteristics Respiratory Depth Normal Normal Respiratory Pattern Blood Pressure Blood Pressure [Right Arm] 118/78 108/70 Blood Pressure Mean Blood Pressure Mean [Right Arm] 91 82 Blood Pressure Position Pulse Oximetry 97 98 Oxygen Delivery Method Room Air Room Air Sepsis Recent Fever Within 48 Hours Sepsis New/Unexplained Change in Mental Status Sepsis Action Taken by Nursing Laboratory Data 10/03/24 20:00 10/03/24 20:00 Lab Results 10/03/24 10/03/24 Range/Units 20:00 23:26 WBC 5.27 (4.8-10.8) K/ul RBC 4.62 L (4.70-6.10) M/uL Hgb 15.7 (14.0-18.0) g/dl Hct 43.4 (42.0-52.0) % MCV 93.9 (80.0-100.0) fL MCH 34.0 (25.0-34.0) pg MCHC 36.2 H (32.0-36.0) g/dL RDW Std Deviation 40.2 (36.4-46.3) fL RDW Coeff of Gucci 11.7 (11.5-14.5) % Plt Count 137 (130-400) K/uL MPV 9.4 (9.4-12.4) fL Immature Gran % (Auto) 0.2 % Neut % (Auto) 63.4 % Lymph % (Auto) 25.8 % Rowan % (Auto) 8.3 % Eos % (Auto) 1.5 % Baso % (Auto) 0.8 % Neut # (Auto) 3.34 (1.40-6.50) K/uL Lymph # (Auto) 1.36 (1.20-3.40) K/uL Rowan # (Auto) 0.44 (0.11-0.59) K/uL Eos # (Auto) 0.08 (0.00-0.50) K/uL Baso # (Auto) 0.04 (0.00-0.20) K/uL Immature Gran # (Auto) 0.01 (0.01-0.20) K/uL PT 10.9 (9.0-12.0) Seconds INR 1.0 (0.9-1.1) APTT 27 (21-31) Seconds PTT Ratio 1.0 Sodium 130 L (136-145) mmol/L Potassium 4.1 (3.5-5.1) mmol/L Chloride 93 L (98-107) mmol/L Carbon Dioxide 26 (21-32) mmol/L Anion Gap 11 (3-11) BUN 7 (6-23) mg/dl Creatinine 0.84 (0.6-1.4) mg/dl Est Cr Clr Drug Dosing 115.0 ml/min eGFR 106.24 BUN/Creatinine Ratio 8.3 L (10-20) Glucose 209 H (70-99(Fasting)) mg/dl Calcium 9.9 (8.6-10.3) mg/dl Magnesium 2.1 (1.7-2.4) mg/dl Total Bilirubin 1.2 H (0.2-1.0) mg/dl AST 61 H (13-39) U/L ALT 56 H (7-52) U/L Alkaline Phosphatase 150 H (34-104) U/L Troponin I High Sens 2.4 (0-20) pg/ml Total Protein 7.4 (6.0-8.3) gm/dl Albumin 4.2 (3.4-5.0) gm/dl Globulin 3.2 (2.5-4.0) gm/dl Albumin/Globulin Ratio 1.3 (0.9-2) Lipase 8 L (11-82) U/L Urine Color Yellow Urine Appearance Clear (Clear) Urine pH 5.5 (4.5-7.5) Ur Specific Purchase 1.008 (1.000-1.030) Urine Protein Negative (Negative) Urine Glucose (UA) 3+ H (Negative) Urine Ketones Negative (Negative) Urine Blood Negative (Negative) Urine Nitrite Negative (Negative) Urine Bilirubin Negative (Negative) Urine Urobilinogen Negative (Negative) Ur Leukocyte Esterase Negative (Negative) Urine Opiates Screen Pos H (Neg) Ur Methadone, Qual Neg (Neg) Urine Fentanyl Screen Neg (Neg) Urine Barbiturates Neg (Neg) Ur Phencyclidine (PCP) Neg (Neg) U Amphetamin/Meth Scrn Neg (Neg) MDMA (Ecstasy) Screen Neg (Neg) U Benzodiazepines Scrn Neg (Neg) Ur Cocaine Metabolite Neg (Neg) U Marijuana (THC) Screen Neg (Neg) Ethyl Alcohol mg/dL 299.2 H (<10.0) mg/dl Administered Medications Hydromorphone HCl (Hydromorphone Inj 0.5 Mg/0.5 Ml Syr) 0.5 mg IV Q4H PRN PRN Reason: Mod-Sev Pain (Scale 4-10) Stop: 10/18/24 03:25 Last Admin: 10/04/24 03:36 Dose: 0.5 mg Documented By: ELIF Ondansetron HCl (Ondansetron Inj 2 Mg/Ml 2 Ml Vial) 4 mg IV Q6H PRN PRN Reason: Nausea Stop: 11/03/24 03:25 Last Admin: 10/04/24 03:36 Dose: 4 mg Documented By: ELIF Discontinued Medications Gabapentin (Gabapentin 1200mg Alcohol Withdrawal Load) 1 each PO NOW STA; Protocol Stop: 10/04/24 03:27 Last Admin: 10/04/24 04:25 Dose: Not Given Documented By: ELIF Gabapentin (Gabapentin 600 Mg Tab) 1,200 mg PO NOW ONE Stop: 10/04/24 03:27 Last Admin: 10/04/24 03:37 Dose: 1,200 mg Documented By: ELIF Hydromorphone HCl (Hydromorphone Inj 0.5 Mg/0.5 Ml Syr) 0.5 mg IV NOW STA Stop: 10/04/24 00:55 Last Admin: 10/04/24 00:59 Dose: 0.5 mg Documented By: ELIF Hydromorphone HCl (Hydromorphone Inj 0.5 Mg/0.5 Ml Syr) Confirm Administered Dose 0.5 mg .ROUTE .STK-MED ONE Stop: 10/04/24 03:34 Last Admin: 10/04/24 03:37 Dose: Not Given Documented By: ELIF Folic Acid 1 mg/ Syringe 10 mls @ 5 mls/min IV NOW ONE Stop: 10/03/24 22:17 Last Admin: 10/03/24 23:23 Dose: 5 mls/min Documented By: ELIF Thiamine HCl 100 mg/ Syringe 10 mls @ 2 mls/min IV NOW ONE Stop: 10/03/24 22:20 Last Admin: 10/03/24 23:23 Dose: 2 mls/min Documented By: ELIF Sodium Chloride (Nss) 1,000 mls @ 999 mls/hr IV .Q1H1M ONE Stop: 10/03/24 23:03 Last Infusion: 10/04/24 00:00 Dose: Infused Documented By: Admin: 10/03/24 22:20 Dose: 999 mls/hr Documented By: EPI Famotidine (Pepcid 20mg Iv Push) 20 mg in 5 mls @ 2.5 mls/min IV NOW STA Stop: 10/03/24 22:38 Last Admin: 10/03/24 23:22 Dose: 2.5 mls/min Documented By: ELIF Pantoprazole Sodium (Protonix) 40 mg in 10 mls @ 5 mls/min IV NOW ONE Stop: 10/03/24 22:38 Last Admin: 10/03/24 23:23 Dose: 5 mls/min Documented By: ELIF Ioversol (Optiray 320 125ml) 125 ml IV ONCE ONE Stop: 10/03/24 22:39 Last Admin: 10/03/24 22:39 Dose: 118 ml Documented By: LUANN Lorazepam (Lorazepam 2 Mg/1 Ml Vial) 1 mg IV NOW STA Stop: 10/03/24 22:04 Last Admin: 10/03/24 22:20 Dose: 1 mg Documented By: EPI Morphine Sulfate (Morphine Sulfate 4 Mg/Ml 1 Ml Carp\\Vial) 4 mg IV NOW STA Stop: 10/03/24 22:04 Last Admin: 10/03/24 22:19 Dose: 4 mg Documented By: EPI Multivitamins (Multivitamin Tab) 1 tab PO NOW ONE Stop: 10/03/24 22:04 Last Admin: 10/03/24 22:29 Dose: 1 tab Documented By: EPI Ondansetron HCl (Ondansetron Inj 2 Mg/Ml 2 Ml Vial) 4 mg IV NOW STA Stop: 10/03/24 22:04 Last Admin: 10/03/24 22:19 Dose: 4 mg Documented By: EPI Ondansetron HCl (Ondansetron Inj 2 Mg/Ml 2 Ml Vial) Confirm Administered Dose 4 mg .ROUTE .STK-MED ONE Stop: 10/04/24 03:35 Last Admin: 10/04/24 03:37 Dose: Not Given Documented By: EMB Imaging Data Radiologist's Impression: Abdomen/Pelvis CT 10/03/24 22:03 Exam(s): CT ABDOMEN + PELVIS With Contrast IV Amt: 118 ml optiray 320 EXAM: CT Abdomen and Pelvis With Intravenous Contrast CLINICAL HISTORY: Reason for exam: abdominal pain, N/V, h/o pancreatitis. TECHNIQUE: Axial computed tomography images of the abdomen and pelvis with intravenous contrast. CTDI is 14.8 mGy and DLP is 692.5 mGy-cm. Automated exposure control was utilized for the study. A dose lowering technique was utilized adhering to the principles of ALARA. CONTRAST: Patient received 118 ml optiray 320 of IV contrast COMPARISON: 08/14/23 FINDINGS: Lung bases: Unremarkable. ABDOMEN: Liver: Unremarkable. No mass. Gallbladder and bile ducts: Cholecystectomy. No ductal dilation. Pancreas: Chronic pancreatitis change with parenchymal calcifications, gland atrophy, and duct dilatation. No CT evidence of acute pancreatitis. Spleen: Unremarkable. No splenomegaly. Adrenals: Unremarkable. No mass. Kidneys and ureters: Unremarkable. No solid mass. No hydronephrosis. Stomach and bowel: Fluid within loops of small bowel. No obstruction. No mucosal thickening. PELVIS: Appendix: Appendix not identified with certainty. No secondary signs of appendicitis. Bladder: Unremarkable. No mass. Reproductive: Unremarkable as visualized. ABDOMEN and PELVIS: Intraperitoneal space: Unremarkable. No free air, significant free fluid, or fluid collection. Bones/joints: Posterior decompression, posterior hardware fixation, and interbody fusion of the spine L4-S1. No acute fracture. No dislocation. Soft tissues: Unremarkable. Vasculature: Collateral vessel formation along the spleen and stomach, stable from prior. No abdominal aortic aneurysm. Lymph nodes: Unremarkable. No enlarged lymph nodes. IMPRESSION: 1. Chronic pancreatitis change with parenchymal calcifications, gland atrophy, and duct dilatation. No CT evidence of acute pancreatitis. Correlate with serum lipase. 2. Fluid within loops of small bowel. This could be incidental or could represent a nonspecific enteritis. Electronically signed by: Tobi Trujillo M.D. 10/04/24 00:09 AM Chest CTA 10/03/24 22:03 Exam(s): CTA CHEST IV Amt: 118 ml optiray 320 EXAM: CT Angiography Chest With Intravenous Contrast CLINICAL HISTORY: Reason for exam: PE. TECHNIQUE: Axial computed tomographic angiography images of the chest with intravenous contrast. CTDI is 14.8 mGy and DLP is 692.5 mGy-cm. Automated exposure control was utilized for the study. A dose lowering technique was utilized adhering to the principles of ALARA. MIP reconstructed images were created and reviewed. COMPARISON: 08/27/22 FINDINGS: Pulmonary arteries: Adequate pulmonary artery opacification. Normal caliber main pulmonary artery. No evidence of acute pulmonary embolism. Aorta: No acute findings. No aortic aneurysm or dissection. Lungs: Unremarkable. No mass. No consolidation. Pleural space: Unremarkable. No significant effusion. No pneumothorax. Heart: Mild coronary artery atherosclerosis. No cardiomegaly or pericardial effusion. Bones/joints: No acute fracture. No dislocation. Soft tissues: Unremarkable. Lymph nodes: Unremarkable. No enlarged lymph nodes. IMPRESSION: No evidence of acute pulmonary embolism. Electronically signed by: Tobi Trujillo M.D. 10/04/24 00:11 AM Discharge Plan Visit Data Chief Complaint: Abdominal Pain Stated Complaint: BACK, CHEST AND ABD PAIN, PANCRETITIS, GASTRITITIS ED Provider: [facility] ED Midlevel Provider: Clau Chu Discharge Problem: Abdominal pain, Chronic pancreatitis, Alcohol use disorder, Chest pain Patient Disposition: Admitted As Inpatient Condition: Good Discharge Instructions Interventions: ED Discharge Assessment Last Done: 10/04/24 03:26 Discharge Problem: Abdominal pain Qualifiers: Abdominal location: generalized Qualified Code(s): R10.84 - Generalized abdominal pain Chronic pancreatitis Qualifiers: Pancreatitis type: alcohol induced Qualified Code(s): K86.0 - Alcohol-induced chronic pancreatitis Chest pain Qualifiers: Chest pain type: unspecified Qualified Code(s): R07.9 - Chest pain, unspecified
[2024-10-03] MEDS: ONDANSETRON INJ 2 MG/ML 2 ML VIAL IV STA (22:19)
[2024-10-03] MEDS: MoRPHine SULFATE 4 MG/ML 1 ML CARP\\VIAL IV STA (22:19)
[2024-10-03] MEDS: SODIUM CHLORIDE 0.9% 1,000 ML IV ONE (22:20)
[2024-10-03] MEDS: LORazepam 2 MG/1 ML VIAL IV STA (22:20)
[2024-10-03 22:29] LABS: Magnesium 2.1 mg/dl (1.7-2.4)
[2024-10-03] MEDS: MULTIVITAMIN TAB PO ONE (22:29)
[2024-10-03 22:37] LABS: Troponin I High Sensitivity 2.4 pg/ml (0-20)
[2024-10-03] MEDS: OPTIRAY 320 125ml IV ONE (22:39)
[2024-10-03 23:16] LABS: Partial Thromboplastin Time 27 Seconds (21-31); Prothrombin Time 10.9 Seconds (9.0-12.0)
[2024-10-03] MEDS: FAMOTIDINE 20MG IV PUSH 20 MG/5 ML SYR IV STA (23:22)
[2024-10-03] MEDS: FOLIC ACID 1 MG in SYRINGE 9.8 ML IV ONE (23:23)
[2024-10-03] MEDS: PANTOprazole 40 MG/10 ML SYR IV ONE (23:23)
[2024-10-03] MEDS: THIAMINE HCL 100 MG in SYRINGE 9 ML IV ONE (23:23)
--- NOTE | 2024-10-04 00:10 | CT Scan Report ---
Exam(s): CT ABDOMEN + PELVIS With Contrast IV Amt: 118 ml optiray 320 EXAM: CT Abdomen and Pelvis With Intravenous Contrast CLINICAL HISTORY: Reason for exam: abdominal pain, N/V, h/o pancreatitis. TECHNIQUE: Axial computed tomography images of the abdomen and pelvis with intravenous contrast. CTDI is 14.8 mGy and DLP is 692.5 mGy-cm. Automated exposure control was utilized for the study. A dose lowering technique was utilized adhering to the principles of ALARA. CONTRAST: Patient received 118 ml optiray 320 of IV contrast COMPARISON: 08/14/23 FINDINGS: Lung bases: Unremarkable. ABDOMEN: Liver: Unremarkable. No mass. Gallbladder and bile ducts: Cholecystectomy. No ductal dilation. Pancreas: Chronic pancreatitis change with parenchymal calcifications, gland atrophy, and duct dilatation. No CT evidence of acute pancreatitis. Spleen: Unremarkable. No splenomegaly. Adrenals: Unremarkable. No mass. Kidneys and ureters: Unremarkable. No solid mass. No hydronephrosis. Stomach and bowel: Fluid within loops of small bowel. No obstruction. No mucosal thickening. PELVIS: Appendix: Appendix not identified with certainty. No secondary signs of appendicitis. Bladder: Unremarkable. No mass. Reproductive: Unremarkable as visualized. ABDOMEN and PELVIS: Intraperitoneal space: Unremarkable. No free air, significant free fluid, or fluid collection. Bones/joints: Posterior decompression, posterior hardware fixation, and interbody fusion of the spine L4-S1. No acute fracture. No dislocation. Soft tissues: Unremarkable. Vasculature: Collateral vessel formation along the spleen and stomach, stable from prior. No abdominal aortic aneurysm. Lymph nodes: Unremarkable. No enlarged lymph nodes. IMPRESSION: 1. Chronic pancreatitis change with parenchymal calcifications, gland atrophy, and duct dilatation. No CT evidence of acute pancreatitis. Correlate with serum lipase. 2. Fluid within loops of small bowel. This could be incidental or could represent a nonspecific enteritis. Electronically signed by: Tobi Trujillo M.D. 10/04/24 00:09 AM
--- NOTE | 2024-10-04 00:13 | CT Scan Report ---
Exam(s): CTA CHEST IV Amt: 118 ml optiray 320 EXAM: CT Angiography Chest With Intravenous Contrast CLINICAL HISTORY: Reason for exam: PE. TECHNIQUE: Axial computed tomographic angiography images of the chest with intravenous contrast. CTDI is 14.8 mGy and DLP is 692.5 mGy-cm. Automated exposure control was utilized for the study. A dose lowering technique was utilized adhering to the principles of ALARA. MIP reconstructed images were created and reviewed. COMPARISON: 08/27/22 FINDINGS: Pulmonary arteries: Adequate pulmonary artery opacification. Normal caliber main pulmonary artery. No evidence of acute pulmonary embolism. Aorta: No acute findings. No aortic aneurysm or dissection. Lungs: Unremarkable. No mass. No consolidation. Pleural space: Unremarkable. No significant effusion. No pneumothorax. Heart: Mild coronary artery atherosclerosis. No cardiomegaly or pericardial effusion. Bones/joints: No acute fracture. No dislocation. Soft tissues: Unremarkable. Lymph nodes: Unremarkable. No enlarged lymph nodes. IMPRESSION: No evidence of acute pulmonary embolism. Electronically signed by: Tobi Trujillo M.D. 10/04/24 00:11 AM
[2024-10-04 00:16] LABS: Amphetamines+Metham, Urine Neg (Neg); Barbiturates, Urine Neg (Neg); Benzodiazepine, Urine Neg (Neg); Cocaine, Urine Neg (Neg); Fentanyl, Urine Neg (Neg); MDMA (Ecstacy), Urine Neg (Neg); Marijuana, Urine Neg (Neg); Methadone, Urine Neg (Neg); Opiate, Urine Pos (Neg); Phencyclidine, Urine Neg (Neg)
[2024-10-04] MEDS: HYDROmorphone INJ 0.5 MG/0.5 ML SYR IV STA (00:59)
--- NOTE | 2024-10-04 02:47 | History & Physical Report ---
Date of Service October 04, 2024 Assessment & Plan (1) Abdominal pain: Plan: 48-year-old male with past medical history significant for type 2 diabetes, alcohol induced chronic pancreatitis, history of pulmonary embolism, GERD, Renae's esophagus, sciatica, chronic pain syndrome, bipolar depression, general anxiety disorder, major depression, ADHD, history of suicide attempt, history of panic disorder, presents with abdominal pain and request for alcohol detox. Patient says he is drinking 6-8 beers daily. Says he is having a lot of abdominal pain going to the back. Associated with nausea and vomiting. Because of significant pain says he came to the hospital. And he also wanted to stop drinking alcohol. Denies any fevers. Sometimes he has chest pain. Sometimes at night he gets short of breath. Lately since about 1 month he is having some difficulty swallowing for solid food that he has to swallow twice. Denies cough. No fevers. Has blurred vision going on for some time and following with ophthalmology. No headache. Normal bowel and bladder movements. Hemodynamics are okay. Abdominal pain Chronic pancreatitis Alcoholic gastritis CT abdomen pelvis shows chronic pancreatitis. No evidence of acute pancreatitis Possible nonspecific enteritis Clear liquid diet, fluids, pain control IV Protonix Alcoholism Thiamine and folic acid and multivitamin Alcohol withdrawal protocol with gabapentin and IV Ativan as needed Close monitor Chest pains EKG and troponin okay Will follow serial CE CTA chest unremarkable Diabetes Will hold Jardiance Continue home Lantus Sliding scale Will monitor History of PE On Eliquis GERD and Renae's esophagus Placed on IV Protonix Dysphagia Patient says having some difficulty swallowing solid food GI consult for further recommendation History of major depression ADHD Generalized anxiety disorder Panic disorder Bipolar disorder Continue home medications DVT prophylaxis On Eliquis Disposition Med/telemetry Full code. History of Present Illness Chief Complaint: Abdominal pain and request for detox Primary Care Provider: Dhiraj Myers DO 48-year-old male with past medical history significant for type 2 diabetes, alcohol induced chronic pancreatitis, history of pulmonary embolism, GERD, Renae's esophagus, sciatica, chronic pain syndrome, bipolar depression, general anxiety disorder, major depression, ADHD, history of suicide attempt, history of panic disorder, presents with abdominal pain and request for alcohol detox. Patient says he is drinking 6-8 beers daily. Says he is having a lot of abdominal pain going to the back. Associated with nausea and vomiting. Because of significant pain says he came to the hospital. And he also wanted to stop drinking alcohol. Denies any fevers. Sometimes he has chest pain. Sometimes at night he gets short of breath. Lately since about 1 month he is having some difficulty swallowing for solid food that he has to swallow twice. Denies cough. No fevers. Has blurred vision going on for some time and following with ophthalmology. No headache. Normal bowel and bladder movements. Hemodynamics are okay. Past medical history. As mentioned above Past surgical history. EGD. EGD with biopsy. EGD with endoscopic ultrasound. Laparoscopic cholecystectomy. A port removed from left chest wall. Appendectomy. Social history. She is tobacco. Alcohol 6-8 beers daily. No drug use. Family history. Aunt had manic depression. Father had alcoholism. Depression. Allergies Allergy/AdvReac Type Severity Reaction Status Date / Time No Known Allergies Allergy Verified 08/14/23 21:23 Home Medications Medication Instructions Recorded Confirmed Type pantoprazole 40 mg tablet,delayed 40 mg PO DAILYBB 01/03/23 10/04/24 History release apixaban 5 mg tablet (Eliquis) 5 mg PO BID 06/23/23 10/04/24 History folic acid 1 mg tablet 1 mg PO QAM #30 tabs 08/17/23 10/04/24 Rx ondansetron 4 mg disintegrating 4 mg PO BID PRN nausea and 08/17/23 10/04/24 Rx tablet vomiting #20 tabs thiamine HCl (vitamin B1) 100 mg 100 mg PO QAM #30 tabs 08/17/23 10/04/24 Rx tablet albuterol sulfate 90 mcg/actuation 2 puff inhalation Q6 PRN Shortness 02/01/24 10/04/24 History aerosol inhaler Of Breath cyclobenzaprine 10 mg tablet 10 mg PO BID PRN Muscle Spasm 02/01/24 10/04/24 History duloxetine 20 mg capsule,delayed 20 mg PO QAM 02/01/24 10/04/24 History release empagliflozin 10 mg tablet 10 mg PO DAILY 02/01/24 10/04/24 History (Jardiance) insulin glargine 100 unit/mL 18 unit subcut HS 02/01/24 10/04/24 History subcutaneous solution (Lantus U-100 Insulin) paroxetine HCl 30 mg tablet 30 mg PO QAM 06/04/24 10/04/24 History Past Med/Surg History Problem List (Updated 10/04/24 @ 07:48 by Clau Chu PA-C) Chest pain (Acute) Influenza A (Acute) Chronic abdominal pain (Acute) Alcoholic gastritis (Acute) Nausea (Acute) History of alcohol abuse (Acute) Abdominal pain (Acute) Influenza A (Acute) Lower abdominal pain Bright red blood per rectum (Acute) Alcohol abuse (Acute) Acute GI bleeding (Acute) Rectal bleed Alcohol use disorder (Acute) Chronic pancreatitis (Acute) Intussusception (Acute) Abdominal pain Substance or medication-induced depressive disorder Alcohol use disorder, severe, dependence Epigastric abdominal pain (Acute) Gastritis (Acute) Alcohol dependence (Acute) SBO (small bowel obstruction) (Acute) Fall (Acute) DKA (diabetic ketoacidosis) (Acute) Acute on chronic pancreatitis (Acute) Alcohol abuse (Acute) Hyperglycemia due to type 2 diabetes mellitus (Acute) Hyperglycemic crisis in diabetes mellitus Alcohol abuse (Acute) Acute hyperglycemia (Acute) History of acute pancreatitis (Acute) Alcohol withdrawal (Acute) Acute hyperglycemia (Acute) Acute epigastric pain (Acute) Hyponatremia Pancreatitis (Acute) COVID-19 (Acute) Chronic pancreatitis (Acute) Acute alcoholic pancreatitis (Acute) Acute hyperglycemia (Acute) Elevated LFTs (Acute) Recurrent pancreatitis (Acute) Alcohol withdrawal DVT prophylaxis Tobacco use Alcohol intoxication (Acute) Dehydration (Acute) Acute alcoholic pancreatitis Alcohol abuse (Acute) Alcohol abuse (Acute) Hypotension (Acute) Alcohol abuse (Acute) Acute hyperglycemia (Acute) Vomiting (Acute) Epigastric abdominal pain (Acute) Acute alcoholic pancreatitis (Acute) Acute hyperglycemia (Acute) Acidosis, lactic (Acute) Acute pancreatitis (Acute) Acute hyperglycemia (Acute) Acute bilateral upper abdominal pain (Acute) Alcohol withdrawal Pancreatitis (Acute) Lactic acidosis (Acute) Intractable abdominal pain (Acute) Encounter for pre-operative examination Pancreatitis (Acute) Alcohol abuse (Acute) Encounter for tobacco use cessation counseling (Acute) Encounter for alcohol abuse counseling and surveillance (Acute) Acute hyperglycemia (Acute) DM type 2 (diabetes mellitus, type 2) (Chronic) Renae's esophagus (Chronic Unknown) "per EGD 11/23/09 " On 05/31/11 09:06 Martinez Jose wrote "per EGD 11/23/09 " H/O acute pancreatitis (Chronic) "recurrent" Alcohol abuse (Chronic Unknown) History of substance abuse (Chronic) Depression (Chronic) Panic disorder (Chronic) Lumbar degenerative disc disease (Chronic) Suicidal ideation (Chronic) Mood disorder (Chronic) Mood disorder (Chronic) Depression (Chronic) H/O esophagogastroduodenoscopy (Chronic) "EGD 11/23/2009- mild gastritis, suspicious for gastroparesis, Z-line irregular EUS 02/04/2010- mild chronic pancreatitis, pronounced cholesterolosis of gallbladder, no biliary dilation or stones, probable gastroparesis EGD 10/31/2014- gastritis" Abdominal pain Chest pain (Acute) Hyperglycemia (Acute) Neuropathy (Acute) Medical History Abdominal pain Pancreatic duct stones Abdominal pain, acute, epigastric Retrosternal chest pain History of pulmonary embolism Alcohol withdrawal Alcoholic ketosis COVID-19 Nausea & vomiting Alcohol abuse Abdominal pain Surgical History S/P lumbar fusion L4-S1 2014 Family History Father Alcohol abuse Social History Smoking Status: Never smoker Tobacco Type: Smokeless Tobacco (Dip or Chew) Second Hand Exposure: No; Do You Dip or Chew Tobacco: Yes; Hx Alcohol Use: Yes Alcohol type: beer Hx Substance Use: No Preferred Language: Romanian Communication Ability: Effective Scullion Chief Required: No Beliefs That Will Affect Care: None marital status: Current Living Situation: Parent Current Living Situation Comment: mobile home with mother How many Children do You have: 3 Feels Safe at Home: Yes Safety Concerns: Feels Safe At This Time Assistive Devices: None Review of Systems Review of Systems: All systems reviewed & are unremarkable except as noted in HPI & below Physical Exam Physical Exam: General- Not in distress Head- atraumatic Eyes- PERRL. ENT- oropharynx clear Neck- supple, no JVD. Lungs- clear to auscultation no wheezing or crackles Heart- regular rate and rhythm; no murmur, no gallop. Abdomen- normal bowel sounds, soft, diffuse tender and guarding present, no distension Extremities- no pretibial edema, no erythema seen Neuro- alert, oriented ; PERRL, no facial palsy; no dysarthria; moves extremities Results & Data Results & Data Vital Signs (Past 12 Hours) Vital Signs Temp Pulse Pulse Resp BP BP Pulse Ox 10/04/24 00:59 99 H 20 108/70 98 10/03/24 23:58 94 H 18 118/78 97 10/03/24 23:37 86 10/03/24 23:24 92 H 16 121/83 98 10/03/24 19:38 36.5 C 102 H 18 149/89 H 96 O2 Del Method 10/04/24 00:59 Room Air 10/03/24 23:58 Room Air 10/03/24 23:37 10/03/24 23:24 Room Air 10/03/24 19:38 Room Air Diagnostic Findings Laboratory Results WBC 5.27 K/ul (4.8-10.8) 10/03/24 20:00 RBC 4.62 M/uL (4.70-6.10) L 10/03/24 20:00 Hgb 15.7 g/dl (14.0-18.0) 10/03/24 20:00 Hct 43.4 % (42.0-52.0) 10/03/24 20:00 MCV 93.9 fL (80.0-100.0) 10/03/24 20:00 MCH 34.0 pg (25.0-34.0) 10/03/24 20:00 MCHC 36.2 g/dL (32.0-36.0) H 10/03/24 20:00 RDW Std Deviation 40.2 fL (36.4-46.3) 10/03/24 20:00 RDW Coeff of Gucci 11.7 % (11.5-14.5) 10/03/24 20:00 Plt Count 137 K/uL (130-400) 10/03/24 20:00 MPV 9.4 fL (9.4-12.4) 10/03/24 20:00 Immature Gran % (Auto) 0.2 % 10/03/24 20:00 Neut % (Auto) 63.4 % 10/03/24 20:00 Lymph % (Auto) 25.8 % 10/03/24 20:00 [place]ila % (Auto) 8.3 % 10/03/24 20:00 Eos % (Auto) 1.5 % 10/03/24 20:00 Baso % (Auto) 0.8 % 10/03/24 20:00 Neut # (Auto) 3.34 K/uL (1.40-6.50) 10/03/24 20:00 Lymph # (Auto) 1.36 K/uL (1.20-3.40) 10/03/24 20:00 [place]ila # (Auto) 0.44 K/uL (0.11-0.59) 10/03/24 20:00 Eos # (Auto) 0.08 K/uL (0.00-0.50) 10/03/24 20:00 Baso # (Auto) 0.04 K/uL (0.00-0.20) 10/03/24 20:00 Immature Gran # (Auto) 0.01 K/uL (0.01-0.20) 10/03/24 20:00 PT 10.9 Seconds (9.0-12.0) 10/03/24 20:00 INR 1.0 (0.9-1.1) 10/03/24 20:00 APTT 27 Seconds (21-31) 10/03/24 20:00 PTT Ratio 1.0 10/03/24 20:00 Sodium 130 mmol/L (136-145) L 10/03/24 20:00 Potassium 4.1 mmol/L (3.5-5.1) 10/03/24 20:00 Chloride 93 mmol/L (98-107) L 10/03/24 20:00 Carbon Dioxide 26 mmol/L (21-32) 10/03/24 20:00 Anion Gap 11 (3-11) 10/03/24 20:00 BUN 7 mg/dl (6-23) 10/03/24 20:00 Creatinine 0.84 mg/dl (0.6-1.4) 10/03/24 20:00 Est Cr Clr Drug Dosing 115.0 ml/min 10/03/24 20:00 eGFR 106.24 10/03/24 20:00 BUN/Creatinine Ratio 8.3 (10-20) L 10/03/24 20:00 Glucose 209 mg/dl (70-99(Fasting)) H 10/03/24 20:00 Calcium 9.9 mg/dl (8.6-10.3) 10/03/24 20:00 Magnesium 2.1 mg/dl (1.7-2.4) 10/03/24 20:00 Total Bilirubin 1.2 mg/dl (0.2-1.0) H 10/03/24 20:00 AST 61 U/L (13-39) H 10/03/24 20:00 ALT 56 U/L (7-52) H 10/03/24 20:00 Alkaline Phosphatase 150 U/L (34-104) H 10/03/24 20:00 Troponin I High Sens 2.4 pg/ml (0-20) 10/03/24 20:00 Total Protein 7.4 gm/dl (6.0-8.3) 10/03/24 20:00 Albumin 4.2 gm/dl (3.4-5.0) 10/03/24 20:00 Globulin 3.2 gm/dl (2.5-4.0) 10/03/24 20:00 Albumin/Globulin Ratio 1.3 (0.9-2) 10/03/24 20:00 Lipase 8 U/L (11-82) L 10/03/24 20:00 Urine Color Yellow 10/03/24 20:00 Urine Appearance Clear (Clear) 10/03/24 20:00 Urine pH 5.5 (4.5-7.5) 10/03/24 20:00 Ur Specific [place] 1.008 (1.000-1.030) 10/03/24 20:00 Urine Protein Negative (Negative) 10/03/24 20:00 Urine Glucose (UA) 3+ (Negative) H 10/03/24 20:00 Urine Ketones Negative (Negative) 10/03/24 20:00 Urine Blood Negative (Negative) 10/03/24 20:00 Urine Nitrite Negative (Negative) 10/03/24 20:00 Urine Bilirubin Negative (Negative) 10/03/24 20:00 Urine Urobilinogen Negative (Negative) 10/03/24 20:00 Ur Leukocyte Esterase Negative (Negative) 10/03/24 20:00 Urine Opiates Screen Pos (Neg) H 10/03/24 23:26 Ur Methadone, Qual Neg (Neg) 10/03/24 23: Urine Fentanyl Screen Neg (Neg) 10/03/24 23:26 Urine Barbiturates Neg (Neg) 10/03/24 23:26 Ur Phencyclidine (PCP) Neg (Neg) 10/03/24 23:26 U Amphetamin/Meth Scrn Neg (Neg) 10/03/24 23:26 MDMA (Ecstasy) Screen Neg (Neg) 10/03/24 23:26 U Benzodiazepines Scrn Neg (Neg) 10/03/24 23:26 Ur Cocaine Metabolite Neg (Neg) 10/03/24 23:26 U Marijuana (THC) Screen Neg (Neg) 10/03/24 23:26 Ethyl Alcohol mg/dL 299.2 mg/dl (<10.0) H 10/03/24 20:00 Impressions Abdomen/Pelvis CT 10/03/24 22:03 Exam(s): CT ABDOMEN + PELVIS With Contrast IV Amt: 118 ml optiray 320 EXAM: CT Abdomen and Pelvis With Intravenous Contrast CLINICAL HISTORY: Reason for exam: abdominal pain, N/V, h/o pancreatitis. TECHNIQUE: Axial computed tomography images of the abdomen and pelvis with intravenous contrast. CTDI is 14.8 mGy and DLP is 692.5 mGy-cm. Automated exposure control was utilized for the study. A dose lowering technique was utilized adhering to the principles of ALARA. CONTRAST: Patient received 118 ml optiray 320 of IV contrast COMPARISON: 08/14/23 FINDINGS: Lung bases: Unremarkable. ABDOMEN: Liver: Unremarkable. No mass. Gallbladder and bile ducts: Cholecystectomy. No ductal dilation. Pancreas: Chronic pancreatitis change with parenchymal calcifications, gland atrophy, and duct dilatation. No CT evidence of acute pancreatitis. Spleen: Unremarkable. No splenomegaly. Adrenals: Unremarkable. No mass. Kidneys and ureters: Unremarkable. No solid mass. No hydronephrosis. Stomach and bowel: Fluid within loops of small bowel. No obstruction. No mucosal thickening. PELVIS: Appendix: Appendix not identified with certainty. No secondary signs of appendicitis. Bladder: Unremarkable. No mass. Reproductive: Unremarkable as visualized. ABDOMEN and PELVIS: Intraperitoneal space: Unremarkable. No free air, significant free fluid, or fluid collection. Bones/joints: Posterior decompression, posterior hardware fixation, and interbody fusion of the spine L4-S1. No acute fracture. No dislocation. Soft tissues: Unremarkable. Vasculature: Collateral vessel formation along the spleen and stomach, stable from prior. No abdominal aortic aneurysm. Lymph nodes: Unremarkable. No enlarged lymph nodes. IMPRESSION: 1. Chronic pancreatitis change with parenchymal calcifications, gland atrophy, and duct dilatation. No CT evidence of acute pancreatitis. Correlate with serum lipase. 2. Fluid within loops of small bowel. This could be incidental or could represent a nonspecific enteritis. Electronically signed by: Tobi Trujillo M.D. 10/04/24 00:09 AM Chest CTA 10/03/24 22:03 Exam(s): CTA CHEST IV Amt: 118 ml optiray 320 EXAM: CT Angiography Chest With Intravenous Contrast CLINICAL HISTORY: Reason for exam: PE. TECHNIQUE: Axial computed tomographic angiography images of the chest with intravenous contrast. CTDI is 14.8 mGy and DLP is 692.5 mGy-cm. Automated exposure control was utilized for the study. A dose lowering technique was utilized adhering to the principles of ALARA. MIP reconstructed images were created and reviewed. COMPARISON: 08/27/22 FINDINGS: Pulmonary arteries: Adequate pulmonary artery opacification. Normal caliber main pulmonary artery. No evidence of acute pulmonary embolism. Aorta: No acute findings. No aortic aneurysm or dissection. Lungs: Unremarkable. No mass. No consolidation. Pleural space: Unremarkable. No significant effusion. No pneumothorax. Heart: Mild coronary artery atherosclerosis. No cardiomegaly or pericardial effusion. Bones/joints: No acute fracture. No dislocation. Soft tissues: Unremarkable. Lymph nodes: Unremarkable. No enlarged lymph nodes. IMPRESSION: No evidence of acute pulmonary embolism. Electronically signed by: Tobi Trujillo M.D. 10/04/24 00:11 AM ECG Additional Comments: ECG. Normal sinus rhythm rate of 96. No significant changes found. Code Status & VTE Plan VTE Prophylaxis Plan VTE Prophylaxis will be ordered: Yes (1) Abdominal pain Abdominal location: generalized Qualified Code(s): R10.84 - Generalized abdominal pain
--- OUTSIDE RECORDS SUMMARY | 2024-10-04 03:25 | External Medical Summary | Summary of Care ---
Author Name Unknown Organization [facility] Address [address] [facility] [place] [address] Phone [phone] Care Team Providers Care Weather Teacher Name Role Phone Beth Yee DO Primary Care Provider [phone] Reason for Visit * Reason Onset Date Comments No Show 09/13/2024 [facility] No Show Auto mation Encounter Details Date Type Department Care Team (Late st Contact Info) Description 09/13/2024 Telephone Family Practice [facility] [place] [address] [facility] [place] [address] Beth Yee DO [address] [facility] [place] [address] No Show ([place] No Show Automation) Allergies No known active allergiesdocumented as of this encounter (statuses as of 09/13/2024) Medications Pantoprazole Sodium 40 MG Oral Tablet Delayed Release (Protonix)Indicati ons:Gastroesophage al reflux disease without esophagitis,Srinivas t's esophagus without dysplasia Take 1 Tablet by mouth in the morning. 90 Tablet 3 4 3:26 PM EST 07/28/20 23 Active Ondansetron 4 MG Oral Tablet Disintegrating (Zofran) DISSOLVE 1 TABLET ON TONGUE twice a day As Needed for nausea and vomiting 20 Tablet 08/17/19 24 Active Omnipod 5 G6 Intro (Gen 5) Kit Use as directed. Use to administer insulin E 11.9 1 Kit 4 12:14 PM EST 09/07/19 24 Active Omnipod 5 G6 Pod (Gen 5) Use 1 pod every 3 days E11.9 30 Each 3 4 12:14 PM EST 09/07/19 24 Active Dexcom G6 Nursery Technician Device Use as directed. Use for blood glucose E 11.9 1 Each 4 3:30 PM EDT 09/07/19 24 Active Dexcom G6 Transmitter Use as directed. Use 1 transmitter every 90 days 1 Each 3 4 12:14 PM EST 09/07/19 24 Active Dexcom G6 Sensor Use as directed. Use 1 sensor every 10 days E11.9 9 Each 3 4 12:14 PM EST 09/07/19 24 Active Albuterol Sulfate HFA 108 (90 Base) MCG/ACT Inhalation Aerosol Solution Inhale 2 Puffs by mouth every 6 hours as needed for Shortness of Breath. 18 g 5 4 4:53 PM EDT 01/02/20 24 Active PARoxetine HCl 30 MG Oral Tablet (Paxil) Take 1 Tablet by mouth in the morning. 30 Tablet 11 4 3:28 PM EST 02/09/20 24 Active busPIRone HCl 5 MG Oral Tablet (Buspar)Indication s:Bipolar depression (HCC) Take 1 Tablet by mouth 2 times a day as needed for Other (Anxiety). 20 Tablet 5 4 1:49 PM EDT 03/05/20 24 Active Creon 34750-87024 UNIT Oral Capsule Delayed Release Particles (Pancrelipase (Dui-Cjqi-Bcao)) Take 1 Capsule by mouth in the morning and 1 Capsule at noon and 1 Capsule in the evening. 90 Capsule 5 03/05/20 24 Active DULoxetine HCl 20 MG Oral Capsule Delayed Release Particles (duloxetine)Indica tions:Major depressive disorder with single episode, remission status unspecified Take 1 Capsule by mouth in the morning. Do not cut, crush or chew. 90 Capsule 3 4 1:49 PM EDT 03/05/20 24 Active Cyclobenzaprine HCl 10 MG Oral Tablet (Flexeril)Indicati ons:Chronic low back pain without sciatica, unspecified back pain laterality Take 1 Tablet by mouth 2 times a day as needed for Muscle spasms. 30 Tablet 5 4 1:49 PM EDT 03/05/20 24 Active Empagliflozin 10 MG Oral Tablet (Jardiance)Indicat ions:Type 2 diabetes, HbA1C goal < 8% (HCC) Take 1 Tablet by mouth in the morning. 90 Tablet 3 4 2:33 PM EST 03/12/20 24 Active Insulin Glargine Solostar 100 UNIT/ML Subcutaneous Solution Pen-injector (Lantus SoloStar)Indicatio ns:Type 2 diabetes, HbA1C goal < 8% (HCC) Inject 18 Units under the skin at bedtime. 15 mL 5 4 2:10 PM EDT 03/12/20 24 Active Insulin Lispro (1 Unit Dial) 100 UNIT/ML Subcutaneous Solution Pen-injector (Admelog) Active Melatonin 3 MG Oral Tablet at bedtime. 12/19/19 23 Active Pen [place] 32G X 4 MM Use as directed. 100 Each 5 4 12:28 PM EST 06/05/20 24 Active diazePAM 5 MG Oral Tablet (Valium) Take 1 Tablet by mouth as needed for Other (due to claustrophobia prior to MRI, ok to repeat once as needed). 2 Tablet 4 12:28 PM EST 06/05/20 24 Active documented as of this encounter (statuses as of 09/13/2024) Active Problems Problem Noted Date Diagnosed Date Unspecified mood (affective) disorder 12/01/2023 Type 2 diabetes mellitus with diabetic neuropath y 07/28/2023 Alcohol-induced chronic pancreatitis 09/21/2022 Alcohol abuse, uncomplicated 09/21/2022 Panic disorder (episodic paroxysmal anxiety) Renae's esophagus without dysplasia 08/20/2019 Other chronic pancreatitis 03/20/2018 Type 2 diabetes mellitus with hyperglycemia 03/07 History of alcohol abuse 10/12/2017 Bipolar depression 01/12/2016 Suicide attempt 06/23/2015 Chronic pain syndrome 06/23/2015 ADHD, hyperactive-impulsive type 05/05/2015 TERMINATED MEDICATION USAGE AGREEMENT 03/30/2015 Pulmonary embolism and infarction 03/24/2015 Overview (01/12/2016): Summer 2014? Type 2 diabetes, HbA1C goal < 8% 10/03/2013 Overview (12/01/2015): ICD-10 update of inactive term Tobacco use disorder 03/29/1999 GENERALIZED ANXIETY DIS 03/01/1999 Sciatica 09/16/1998 Esophageal reflux Alcohol abuse, in remission Disorder of intervertebral disc Major depressive disorder Overview (05/30/2017): 08/18 hosp psych-started on lithium 300mg QAM, 600mg QPM, librium taper. Referred to [facility]. Refused rehab. Grandmother cancer around -was close. Father committed suicide by gunshot 5mo later, patient found body ICD-10 update of inactive term Insomnia documented as of this encounter (statuses as of 09/13/2024) Resolved Problems Problem Noted Date Diagnosed Date Resolved Date Thrombocytopenia 09/21/2022 12/01/2023 Embolism and thrombosis of s uperficial veins of left lower extremity 09/21/2022 12/01/2023 Acute deep vein thrombosis ( DVT) of calf muscle vein 08/05/2022 01/02/2024 Chest pain 08/05/2022 01/02/2024 Alcohol abuse with intoxication, unspecified 0 05/13/2021 Alcohol withdrawal, uncomplicated 03/20/2018 05/13/2021 Alcohol withdrawal 03/09/2017 8 MEDICATION USE AGREEMENT 12/11/2014 Narcotic addiction 12/11/2014 8 MEDICATION USE AGREEMENT 11/19/201402/2015 Routine general medical exam ination at a health care facility 09/26/2011 09/27/2013 Overview (09/26/2011): Jailed around 08/18 Chronic sinusitis 07/21/1999 01/02/2024 Other specified adjustment reaction 01/05/1999 07/07/2011 Other allergic rhinitis 02/06 Overview (05/30/2017): ICD-10 update of inactive term Anxiety states 06/23/2015 Overview (05/30/2017): ICD-10 update of inactive term Tobacco use disorder 012 documented as of this encounter (statuses as of 09/13/2024) Immunizations Name Administration Dates Next Due Pneumococcal Polysaccharide PPV23 (Pneumovax) Seasonal Influenza Vac., MDV, IM, 0.5 mL (Fluzon e) 06/19/2014 TDAP (age 10 and older)(Boostrix) 06/19/2014 documented as of this encounter Social History Tobacco Use Types Packs/Day Years Used Date Smoking Tobacco: Never Smokeless Tobacco: Current Chew, Snuff Comments:1 can/day Alcohol Use Standard Drinks/Week Comments Yes 54 (1 standard drink = 0.6 oz pu re alcohol) 8 beers/day PHQ-2 Answer Date Recorded PHQ Adult Total Score 13 08/10/2023 Hunger Vital Sign Answer Date Recorded Within the past 12 months, y ou worried that your food would run out before you got the money to buy more. Never true 07/25/20 23 Within the past 12 months, t he food you bought just didn't last and you didn't have money to get more. Never true 07/25/2023 Childcare Answer Date Recorded Do you feel overwhelmed with taking care of a child, family member or friend? No 07/25/2023 Does your family need help f inding childcare? (Household - for ages 0-17 years) Not on file 07/25/2023 Clothing Answer Date Recorded Have you been unable to get clothing when it was really needed? No 07/25/2023 Is your family able to get c lothes or diapers when needed? (Household - for ages 0-17 years) Not on file 07/25/2023 Personal Safety Answer Date Recorded Do you feel unsafe or have concerns for your saf ety? No 07/25/2023 Do you have concerns for you r family's safety? (Household - for ages 0-17 years) Not on file 07/25/2023 Utilities Answer Date Recorded Do you have trouble paying y our heating, water, or electric bill? No 07/25/2023 Is your family able to pay t he heat, water, or electric bill? (Household - for ages 0-17 years) Not on file 07/25/2023 Does your family have access to good internet? (Household - for ages 0-17 years) Not on file 07/25/2023 Employment Status Answer Date Recorded Are you unemployed or without regular income? Ye s 07/25/2023 Does the household have a re gular source of income? (Household - for ages 0-17 years) Not on file 07/25/2023 Social Connections Answer Date Recorded How often do you feel lonely or isolated from those around you? Sometimes 07/25/2023 Financial Resource Strain Answer Date R ecorded Do you have any trouble payi ng for your medications, or do you think you might in the future? No 07/25/2023 Does your family have troubl e paying for medicine? (Household - for ages 0-17 years) Not on file 07/25/2023 Transportation Needs Answer Date Record ed READ ONLY Do you have troubl e getting a ride to medical visits or work? Sometimes True 07/25/2023 Does your family have a hard time getting a ride to doctors visits? (Household - for ages 0-17 years) Not on file 07/25/2023 Has lack of transportation k ept you from medical appointments, meetings, work, or from getting things needed for daily living? Check all that apply. (Adult - for ages 18 years and over) Not on file 07/25/2023 Do you (or your family) have trouble finding or paying for a ride (transportation)? (Household - for ages 0-17 years) Not on file 07/25/2023 Housing Stability Answer Date Recorded Do you currently live in a s helter or have no steady place to sleep at night? No 07/25/2023 READ ONLY Do you think you a re at risk of becoming homeless? No 07/25/2023 Does your family worry about paying for your home or becoming homeless? (Household - for ages 0-17 years) Not on file 1 09/25/2022 Are you homeless or worried that you might be in the future? (Adult - for ages 18 years and over) Not on file Are you (or your family) kushal eless or worried that you might be in the future? (Household - for ages 0-17 years) Not on file Food Insecurity Answer Date Recorded Do you need food for this week? No 07/25/2023 Are you able to get enough f ood for your family? (Household - for ages 0-17 years) Not on file 07/25/2023 Does your family need food t his week? (Household - for ages 0-17 years) Not on file 07/25/2023 Do you always have enough fo od for your family? 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 If you haven't already rescheduled, you have a couple of options: Reschedule in [employer]/Letsgofordinner/scheduling Call us at [phone] Can't make a future appointment? Cancel and let someone else have your spot! It's easy to do via [employer] or by calling us. Thanks for trusting [facility] with your care. We hope to see you back in our office soon. Sincerely, BETH YEE documented in this encounter Plan of Treatment Upcoming Encounters Date Type Department Care Team (Latest Contact Info) Description 09/30/2024 2:00 PM EST Office Visit Orthopaedics [facility] [address] [place] [phone] Tomas Littlejohn, DO [address] [place] [phone] 01/01/2025 11:45 AM EDT Hospital Encounter [facility]O [facility], Endoscopy Room [facility] [address] [place] [phone] Homero Mullen MD [address] [place] [address] 01/01/2025 11:45 AM EDT - 01/01/2025 12:15 PM EDT Surgery ENDO [facility], Endoscopy Room [facility] [address] [place] [phone] Homero Mullen MD [address] [place] [id number] COLONOSCOPY FLEXIBLE PROXIMAL DIAGNOSTIC Scheduled Procedures Name Priority Associated Diagnoses Date/Ti me COLONOSCOPY FLEXIBLE PROXIMAL DIAGNOSTIC Recall Bright red rectal bleeding 01/01/2025 11:45 AM EDT Health Maintenance Due Date Last Done Comments HIV Screening 1988 Hepatitis C Screening 11/08/1991 Hepatitis B Vaccine (1 of 3 - 19+ 3-dose series) 1992 Pneumococcal Vaccine: 50+ Years (2 of 2 - PCV) 12/16/2014 12/16/2013 Cologuard 2018 Colonoscopy 2018 Sigmoidoscopy 2018 Renae's Esophagus Surveilance 09/18/2021 09/18/2018, 03/05/2018, 10/31/2014, Additional history exists Diabetic Foot Exam 10/23/2021 10/23/2020, 0 10/12/2017, 01/12/2016, Additional history exists Diabetic Eye Exam 10/13/2022 10/13/2021, , 08/13/2018, Additional history exists Zoster Vaccines (1 of 2) 11/08/2023 COVID-19 Vaccine (1 - season) 2024 Influenza Vaccine (FLU shot) (#1) 2024 06/19/2014 DTap/Tdap Vaccines (2 - Td or Tdap) 06/19/2024 06/19/2014 HbA1c 07/27/2024 01/26/2024, 07/08, 05/05/2023, Additional history exists Depression Monitoring 08/10/2024 08/10/2023 GFR 01/25/2025 01/26/2024, 07/08, 10/03/2022, Additional history exists Colorectal Cancer Screening 05/02/2025 Fecal Occult Blood Test 05/02/2025 05/02/20 24, 05/02/2024, 04/06/2023, Additional history exists Albumin/Creatinine Ratio 07/03/2025 024, 07/28/2023, 10/03/2022, Additional history exists Lipid Panel 01/25/2029 01/26/2024, 03/08, 07/27/2016, Additional history exists HPV (Gardasil) Vaccine Aged Out No lo nger eligible based on patient's age to complete this topic MENINGOCOCCAL (MENACTRA/MENVEO) Aged Out No longer eligible based on patient's age to complete this topic documented as of this encounter Medical Devices Not on filedocumented as of this encounter Advance Directives Healthcare Agents on File Name Relationship Healthcare Agent Relationshi p Communication [facility] Repr esentative (appointed verbally by patient or by statute hierarchy) Care Teams Weather Teacher Relationship Specialty Start Date End Date Beth Yee DO [address] [facility] [place] [address] PCP - General Family Medicine 01/24/17 documented as of this encounter
--- OUTSIDE RECORDS SUMMARY | 2024-10-04 03:25 | External Medical Summary | Summary of Care ---
Author Name Unknown Organization [facility] Address [address] [facility] [place] [address] Phone [phone] Care Team Providers Care Charge Coordinator Name Role Phone Dhiraj Myers DO Primary Care Provider [phone] Encounter Details Date Type Department Care Team (Late st Contact Info) Description 06/07/2024 Orders Only PATIENT PORTAL DO NOT DELETE THIS DEPT USED BY [place] [id number] Allergies No known active allergiesdocumented as of this encounter (statuses as of 06/07/2024) Medications Medication Sig Dispensed Refills Start Date End Date Status Pantoprazole Sodium 40 MG Oral Tablet Delayed Release (Protonix)Indicatio ns:Gastroesophageal reflux disease without esophagitis,Renae 's esophagus without dysplasia Take 1 Tablet by mouth in the morning. 90 Tablet 3 07/28/2023 Active Ondansetron 4 MG Oral Tablet Disintegrating (Zofran) DISSOLVE 1 TABLET ON TONGUE twice a day As Needed for nausea and vomiting 20 Tablet 08/17/2023 Active Omnipod 5 G6 Intro (Gen 5) Kit Use as directed. Use to administer insulin E 11.9 1 Kit 09/07/2023 Active Omnipod 5 G6 Pod (Gen 5) Use 1 pod every 3 days E11.9 30 Each 3 09/07/2023 Active Dexcom G6 Cytotechnologist/Cytology Supervisor Device Use as directed. Use for blood glucose E 11.9 1 Each 09/07/2023 Active Dexcom G6 Transmitter Use as directed. Use 1 transmitter every 90 days 1 Each 3 09/07/2023 Active Dexcom G6 Sensor Use as directed. Use 1 sensor every 10 days E11.9 9 Each 3 09/07/2023 Active NovoLOG FlexPen 100 UNIT/ML Subcutaneous Solution Pen-injector (insulin aspart) Inject under the skin. Treats if only over 300. Active Albuterol Sulfate HFA 108 (90 Base) MCG/ACT Inhalation Aerosol Solution Inhale 2 Puffs by mouth every 6 hours as needed for Shortness of Breath. 18 g 5 01/02/2024 Active PARoxetine HCl 30 MG Oral Tablet (Paxil) Take 1 Tablet by mouth in the morning. 30 Tablet 11 02/09/2024 Active busPIRone HCl 5 MG Oral Tablet (Buspar)Indications :Bipolar depression (HCC) Take 1 Tablet by mouth 2 times a day as needed for Other (Anxiety). 20 Tablet 03/05/2024 Active Creon 54084-34039 UNIT Oral Capsule Delayed Release Particles (Pancrelipase (Yno-Vzee-Scbm)) Take 1 Capsule by mouth in the morning and 1 Capsule at noon and 1 Capsule in the evening. 90 Capsule 03/05/2024 Active DULoxetine HCl 20 MG Oral Capsule Delayed Release Particles (duloxetine)Indicat ions:Major depressive disorder with single episode, remission status unspecified Take 1 Capsule by mouth in the morning. Do not cut, crush or chew. 90 Capsule 3 03/05/2024 Active Cyclobenzaprine HCl 10 MG Oral Tablet (Flexeril)Indicatio ns:Chronic low back pain without sciatica, unspecified back pain laterality Take 1 Tablet by mouth 2 times a day as needed for Muscle spasms. 30 Tablet 03/05/2024 Active Empagliflozin 10 MG Oral Tablet (Jardiance)Indicati ons:Type 2 diabetes, HbA1C goal < 8% (HCC) Take 1 Tablet by mouth in the morning. 90 Tablet 3 03/12/2024 Active Insulin Glargine Solostar 100 UNIT/ML Subcutaneous Solution Pen-injector (Lantus SoloStar)Indication s:Type 2 diabetes, HbA1C goal < 8% (HCC) Inject 18 Units under the skin at bedtime. 15 mL 03/12/2024 Active Insulin Lispro (1 Unit Dial) 100 UNIT/ML Subcutaneous Solution Pen-injector (Admelog) Active Melatonin 3 MG Oral Tablet at bedtime. 12/18/2022 Active Pen [place] 32G X 4 MM Use as directed. 100 Each 06/05/2024 Active diazePAM 5 MG Oral Tablet (Valium) Take 1 Tablet by mouth as needed for Other (due to claustrophobia prior to MRI, ok to repeat once as needed). 2 Tablet 06/05/2024 Active documented as of this encounter (statuses as of 06/07/2024) Active Problems Problem Noted Date Diagnosed Date [...] 10/03/2013 Overview: ICD-10 update of inactive term Tobacco use disorder 03/29/1999 GENERALIZED ANXIETY DIS 03/01/1999 Sciatica 09/16/1998 Esophageal reflux Alcohol abuse, in remission Disorder of intervertebral disc Major depressive disorder Overview: 08/18 hosp psych-started on lithium 300mg QAM, 600mg QPM, librium taper. [facility]. Refused rehab. Grandmother cancer around -was close. Father committed suicide by gunshot 5mo later, patient found body ICD-10 update of inactive term Insomnia documented as of this encounter (statuses as of 06/07/2024) Resolved Problems Problem Noted Date Diagnosed Date [...] facility 09/26/2011 09/27/2013 Overview: Jailed around 08/18 Chronic sinusitis 07/21/1999 01/02/2024 Other specified adjustment reaction 01/05/1999 07/07/2011 Other allergic rhinitis 02/06 Overview: ICD-10 update of inactive term Anxiety states 06/23/2015 Overview: ICD-10 update of inactive term Tobacco use disorder 012 documented as of this encounter (statuses as of 06/07/2024) Immunizations Name Administration Dates Next Due Pneumococcal [...] money to get more. Never true 07/25/2023 Sex and Gender Information Value Date Recorded Sex Assigned at Male 07/20/2023 11:56 PM EST Gender Identity Male 07/20/2023 11:56 PM EST Sexual Orientation Straight 07/20/2023 11 :56 PM EST Job Start Date Occupation Industry Not on file Not on file Not on file documented as of this encounter Plan of Treatment Upcoming Encounters Date Type Department Care Team (Late st Contact Info) Description 06/17/2024 1:30 PM EST Office Visit Orthopaedics [facility] [address] [place] [id number] Tomas Littlejohn, DO [address] [place] [id number] 06/28/2024 2:45 PM EST Imaging Radiology [facility] [facility] [address] [place] [address] 09/10/2024 6:00 PM EST Office Visit Family Practice [facility] [address] [place] [address] Dhiraj Myers, DO [address] [place] [address] Scheduled Procedures Name Priority Associated Diagnoses Date/Ti me COLONOSCOPY FLEXIBLE PROXIMA L DIAGNOSTIC Recall Bright red rectal bleeding Health Maintenance Due Date Last Done Comments HIV Screening 1988 Hepatitis C Screening 11/08/1991 Hepatitis B Vaccine (1 of 3 - 19+ 3-dose series) 1992 Pneumococcal Vaccine: Pediatrics (0 to 5 Years) and At-Risk Patients (6 to 64 Years) (2 of 2 - PCV) 12/16/2014 12/16/2013 Cologuard 2018 Colonoscopy 2018 Sigmoidoscopy 2018 Renae's Esophagus Surveilance 09/18/2021 09/18/2018, 03/05/2018, 10/31/2014, Additional history exists Diabetic Foot Exam 10/23/2021 10/23/2020, 0 10/12/2017, 01/12/2016, Additional history exists Diabetic Eye Exam 10/13/2022 10/13/2021, , 08/13/2018, Additional history exists Zoster Vaccines (1 of 2) 11/08/2023 COVID-19 Vaccine ( - season) 2024 Influenza Vaccine (FLU shot) (#1) 2024 06/19/2014 DTap/Tdap Vaccines (2 - Td or Tdap) 06/19/2024 06/19/2014 HbA1c 07/27/2024 01/26/2024, 07/08, 05/05/2023, Additional history exists Albumin/Creatinine Ratio 07/28/2024 023, 10/03/2022, 04/19/2021, Additional history exists Depression Monitoring 08/10/2024 08/10/2023 GFR 01/25/2025 01/26/2024, 07/08, 10/03/2022, Additional history exists Colorectal Cancer Screening 05/02/2025 Fecal Occult Blood Test 05/02/2025 05/02/20 24, 05/02/2024, 04/06/2023, Additional history exists Lipid Panel 01/25/2029 01/26/2024, [...] Name Relationship Healthcare Agent Relationshi p Communication [facility] Repr esentative (appointed verbally by patient or by statute hierarchy) Care Teams Charge Coordinator Relationship Specialty Start Date End Date Dhiraj Myers DO [address] [facility] [place] [address] PCP - General Family Medicine 01/24/17 documented as of this encounter
--- OUTSIDE RECORDS SUMMARY | 2024-10-04 03:25 | External Medical Summary ---
Author Name Unknown Address Unknown Organization [facility] - [address] [place] [id number] Laboratory Report Ordering Provider Test Date Status MONAE MESSINA 07/03/2024 11:25:00 Final Normal: <30 mg/g creatinine< br/>High: 30-300 mg/g creatinine
Very High: >300 mg/g creatinine
Nephrotic: >2200 mg/g creatinine Observation Date Value Abnormality Reference (Units ) Status Albumin, Urine 07/03/2024 11:25:00 <1.20 (mg/d L) Final This testing was performed a s part of a [facility] [employer] fulfillment initiative Creatinine, Urine 07/03/2024 11:25:00 95 (m g/dL) Final Albumin/Creatinine [Mass Rat io] in Urine 07/03/2024 11:25:00 <13 <30 (mg/g Creat) Kirsten kearns Performing Location [facility] - [address] [facility] [address]
--- OUTSIDE RECORDS SUMMARY | 2024-10-04 03:25 | External Medical Summary | Summary of Care ---
Author Name Unknown Organization [facility] Address [address] [facility] [place] [address] Phone [phone] Care Team Providers Care Packaging Sales Name Role Phone Dhiraj Myers DO Primary Care Provider [phone] Encounter Details Date Type Department Care Team (Late st Contact Info) Description 08/26/2024 Population Health External Data Unspecified Department Allergies No known active allergiesdocumented as of this encounter (statuses as of 08/26/2024) Medications Pantoprazole Sodium 40 MG Oral Tablet [...] PM EST 09/07/19 24 Active Dexcom G6 Bus Driver Supervisor Device Use as directed. Use for [...] 1:49 PM EDT 03/05/20 24 Active Creon 77852-09696 UNIT Oral Capsule Delayed Release Particles (Pancrelipase (Ilh-Acoq-Yxxk)) Take 1 Capsule by mouth in the [...] ions:Type 2 diabetes, HbA1C goal < 8% ([facility]) Take 1 Tablet by mouth in the morning. 90 Tablet 3 4 2:33 PM EST 03/12/20 24 Active Insulin Glargine Solostar 100 UNIT/ML Subcutaneous Solution Pen-injector (Lantus SoloStar)Indicatio ns:Type 2 diabetes, HbA1C goal < 8% ([facility]) Inject 18 Units under the skin at bedtime. 15 mL 5 4 2:10 PM EDT 03/12/20 Active Insulin Lispro (1 Unit Dial) 100 UNIT/ML Subcutaneous Solution Pen-injector (Admelog) Active Melatonin 3 MG Oral Tablet at bedtime. 12/19/19 Active Pen [place] 32G X 4 MM Use as directed. 100 Each 5 4 12:28 PM EST 06/05/20 24 Active diazePAM 5 MG Oral Tablet (Valium) Take 1 Tablet by mouth as needed for Other (due to claustrophobia prior to MRI, ok to repeat once as needed). 2 Tablet 4 12:28 PM EST 06/05/20 Active documented as of this encounter (statuses as of 08/26/2024) Active Problems Problem Noted Date Diagnosed Date [...] as of this encounter (statuses as of 08/26/2024) Resolved Problems Problem Noted Date Diagnosed Date [...] as of this encounter (statuses as of 08/26/2024) Immunizations Name Administration Dates Next Due Pneumococcal [...] Department Care Team (Latest Contact Info) Description 09/10/2024 6:00 PM EST Office Visit Family Practice [facility] [address] [facility] [place] [address] Dhiraj Myers DO [address] [facility] [place] [address] 09/30/2024 2:00 PM EST Office Visit Orthopaedics [facility] [address] [place] [phone] Tomas Littlejohn, DO [address] [place] [address] 01/01/2025 11:45 AM EDT Hospital Encounter ENDO OSSC, Endoscopy Room [facility] [address] [place] [phone] Homero Mullen MD [address] [place] [address] 01/01/2025 11:45 AM EDT - 01/01/2025 12:15 PM EDT Surgery ENDO O[facility], Endoscopy Room [facility] [address] [place] [phone] Homero Mullen MD [address] [place] [address] COLONOSCOPY FLEXIBLE PROXIMAL DIAGNOSTIC Scheduled Procedures Name [...] Agents on File Name Relationship Healthcare Agent [facility] p Communication [facility] Repr esentative (appointed verbally by patient or by statute hierarchy) Care Teams Packaging Sales Relationship Specialty Start Date End Date Dhiraj Myers DO [facility] [place] [address] PCP - General Family Medicine 01/24/17 documented as of this encounter
--- OUTSIDE RECORDS SUMMARY | 2024-10-04 03:25 | External Medical Summary | Summary of Care ---
Author Name Unknown Organization [facility] Address [address] [facility] [place] [address] Phone [phone] Care Team Providers Care Hide Or Skin Buffer Name Role Phone Dhiraj Myers DO Primary Care Provider [phone] Reason for Visit * Reason Onset Date Comments Appointment 07/18/2024 Encounter Details Date Type Department Care Team (Late st Contact Info) Description 07/18/2024 Telephone Gastroenterology, [facility] [address] [place] [address] Homero Mullen MD [address] [place] [address] Appointment Allergies No known active allergiesdocumented as of this encounter (statuses as of 07/18/2024) Medications Pantoprazole Sodium 40 MG Oral Tablet [...] PM EST 09/07/19 24 Active Dexcom G6 Filenet Architect Device Use as directed. Use for blood [...] 4 12:14 PM EST 09/07/19 24 Active NovoLOG FlexPen 100 UNIT/ML Subcutaneous Solution [...] 1:49 PM EDT 03/05/20 24 Active Creon 11029-56426 UNIT Oral Capsule Delayed Release Particles (Pancrelipase (Xcn-Nsyz-Czkf)) Take 1 Capsule by mouth in the [...] Tablet at bedtime. 12/19/19 23 Active Pen [place] 32G X 4 MM Use as directed. 100 Each 5 4 12:28 PM EST 06/05/20 24 Active diazePAM 5 MG Oral Tablet (Valium) Take 1 Tablet by mouth as needed for Other (due to claustrophobia prior to MRI, ok to repeat once as needed). 2 Tablet 4 12:28 PM EST 06/05/20 24 Active documented as of this encounter (statuses as of 07/18/2024) Active Problems Problem Noted Date Diagnosed Date [...] as of this encounter (statuses as of 07/18/2024) Resolved Problems Problem Noted Date Diagnosed Date [...] as of this encounter (statuses as of 07/18/2024) Immunizations Name Administration Dates Next Due Pneumococcal [...] encounter Miscellaneous Notes * Telephone Encounter - Katalina Sanchez OSA - 07/18/2024 10:17 AM EST Received referral / records for pt to have screening colon Lmm LILIANA Jarrett 07/18/2024 10:17 AM documented in this encounter Plan of Treatment Upcoming Encounters Date Type Department Care Team (Late st Contact Info) Description 09/10/2024 6:00 PM EST Office Visit Family Practice [facility] [address] [facility] [place] [address] Dhiraj Myers, DO [address] [facility] [place] [address] 09/30/2024 2:00 PM EST Office Visit Orthopaedics [facility] [address] [place] [address] Tomas Littlejohn, [address] [place] [address] Scheduled Procedures Name Priority Associated Diagnoses Date/Ti [...] Name Relationship Healthcare Agent Relationshi p Communication [facility] Repr esentative (appointed verbally by patient or by statute hierarchy) Care Teams Hide Or Skin Buffer Relationship Specialty Start Date End Date Dhiraj Myers DO [address] [facility] [place] [address] PCP - General Family Medicine 01/24/17 documented as of this encounter
--- OUTSIDE RECORDS SUMMARY | 2024-10-04 03:25 | External Medical Summary | Summary of Care ---
Author Name Unknown Organization [facility] Address [address] [facility] [place] [address] Phone [phone] Care Team Providers Care Private Equity Associate Name Role Phone Dhiraj Myers DO Primary Care Provider [phone] Reason for Visit * Reason Onset Date Comments Test Results 06/28/2024 Unexpected or In determinate Result Encounter Details Date Type Department Care Team (Late st Contact Info) Description 06/28/[address] [place] [address] Reynaldo Craig MD [address] [place] [address] Test Results (Unexpected or Indeterminate ... Allergies No known active allergiesdocumented as of this encounter (statuses as of 09/28/2024) Medications Pantoprazole Sodium 40 MG Oral Tablet [...] 11.9 1 Kit 4 12:14 PM EST 02/01/20 24 Active Omnipod 5 G6 Pod (Gen 5) Use 1 pod every 3 days E11.9 30 Each 3 4 12:14 PM EST 09/07/19 24 Active Dexcom G6 Auto Parker Device Use as directed. Use for blood [...] 1:49 PM EDT 03/05/20 24 Active Creon 82395-38652 UNIT Oral Capsule Delayed Release Particles (Pancrelipase (Hlq-Hbui-Xkuv)) Take 1 Capsule by mouth in the [...] Tablet at bedtime. 12/19/19 23 Active Pen [place] 32G X 4 MM Use as directed. 100 Each 5 4 12:28 PM EST 06/05/20 24 Active diazePAM 5 MG Oral Tablet (Valium) Take 1 Tablet by mouth as needed for Other (due to claustrophobia prior to MRI, ok to repeat once as needed). 2 Tablet 4 12:28 PM EST 06/05/20 24 Active documented as of this encounter (statuses as of 09/28/2024) Active Problems Problem Noted Date Diagnosed Date [...] as of this encounter (statuses as of 09/28/2024) Resolved Problems Problem Noted Date Diagnosed Date [...] as of this encounter (statuses as of 09/28/2024) Immunizations Name Administration Dates Next Due Pneumococcal [...] encounter Miscellaneous Notes * Telephone Encounter - Olga Johnson, LILIANA - 06/28/2024 5:07 PM EST Hello- The radiologist discovered an unexpected or indeterminate finding on Raffi Zeng ([id number]) and asks that you review the following report. Study Type: MRI L SPINE W WO CONTRAST Date of Study: 06/28/2024 IMPRESSION: 1. Transitional lumbar spine anatomy. 4 [id number]-[id number] lumbar type vertebral bodies corroborated counting down from C2 on localizer sequence and stable compared with 06/2013 lumbar spine MR. 12 rib-bearing thoracic type vertebral bodies on 03/2020 chest x-ray. Lumbosacral transitional vertebra (LSTV) designated as L5 for this dictation. L5 sacralization, with fully formed L5-S1 disc and bilateralL5 transverse process widening (Castellvi Ib). ATTENTION TO SPINE NUMBERING IS MANDATORY PRIOR TO PLANNED SPINAL SURGICAL/INTERVENTIONAL PROCEDURE. 2. Status post L4-L5 and L5-S1 intervertebral cage placement, L5 total laminectomy, L4 and S1 partial laminectomy, and L4-S1 instrumented posterior spinal fusion. L4-L5 intervertebral cage is in close proximity to L4 posterior wall. Lumbar spine CT without contrast may be performed for further evaluation. 3. Postoperative peridural fibrosis contacts bilateral traversing L5 and bilateral traversing S1 nerve roots in respective subarticular zones. Correlation with dermatomal symptom level recommended. 4. Mild L1-L2, L2-L3, and L3-L4 spinal canal stenoses. L1-L2 spinal canal stenosis is partly due tocentral/left central disc extrusion/sequestered disc fragment extending 21 mm superior to L1 inferior endplate. No additional lumbar spinal canal stenosis. Spinal surgery consultation may be considered. 5. L4-S1 faint cauda equina enhancement, concerning for arachnoiditis. 6. Additional nerve root contact at L1-L2, L2-L3, L3-L4, L4-L5, and L5-S1. Correlation with dermatomal symptom level recommended. 7. Multilevel neural foraminal narrowing, at worst moderate. 8. Convex right lumbar scoliosis, measuring 12 degrees by Reilly method between superior L1 and inferior L4 endplates. Weightbearing AP scoliosis x-ray may be performed for further evaluation. Please respond to this encounter to acknowledge receipt of this message and take responsibility to ensure this report is reviewed. Thank you, LILIANA Farr Client Service [facility] documented in this encounter Plan of Treatment Upcoming Encounters Date Type Department Care Team (Latest Contact Info) Description 09/30/2024 2:00 PM EST Office Visit Orthopaedics [facility] [address] [place] [phone] Tomas Littlejohn DO [address] [place] [phone] 01/01/2025 11:45 AM EDT Hospital Encounter ENDO OSSC, Endoscopy Room [facility] [address] [place] [phone] Homero Mullen MD [address] [place] [address] 01/01/2025 11:45 AM EDT - 01/01/2025 12:15 PM EDT Surgery ENDO [facility], Endoscopy Room [facility] [address] [place] [phone] Homero Mullen MD [address] [place] [address] COLONOSCOPY FLEXIBLE PROXIMAL DIAGNOSTIC Scheduled Procedures Name [...] on patient's age to complete this topic Meningitis B Vaccine (Bexsero/Trumemba) Aged Out No longer eligible based on patient's age to complete this topic documented as of this encounter Medical Devices Not on filedocumented as of this encounter Advance Directives Healthcare Agents on File Name Relationship Healthcare Agent Relationshi p Communication [facility] Repr esentative (appointed verbally by patient or by statute hierarchy) Care Teams Private Equity Associate Relationship Specialty Start Date End Date Dhiraj Myers DO [address] [place] [address] PCP - General Family Medicine 01/24/17 documented as of this encounter
--- OUTSIDE RECORDS SUMMARY | 2024-10-04 03:25 | External Medical Summary | Summary of Care ---
Author Name Unknown Organization [facility] Address [address] [facility] [place] [address] Phone [phone] Care Team Providers Care Senior Corporate Accountant Name Role Phone Dhiraj Myers DO Primary Care Provider [phone] Reason for Visit * Reason Comments Follow Up R elbow Encounter Details Date Type Department Care Team (Latest Contact Info) Description 06/17/2024 1:30 PM EST Office Visit Orthopaedics [facility] [address] [place] [address] Tomas Littlejohn DO [address] [place] [address] Lateral epicondylitis of right elbow*; Ulnar nerve entrapment syndrome, unspecified laterality Allergies No known active allergiesdocumented as of this encounter (statuses as of 06/17/2024) Medications Pantoprazole Sodium 40 MG Oral Tablet Delayed Release (Protonix)Indicati ons:Gastroesophage al reflux disease without esophagitis,Srinivas t's esophagus without dysplasia Take 1 Tablet by mouth in the morning. 90 Tablet 3 4 2:24 PM EDT 07/28/20 23 Active Ondansetron 4 MG Oral [...] PM EST 09/07/19 24 Active Dexcom G6 Roll Mechanic Device Use as directed. Use for blood [...] in the morning. 30 Tablet 11 4 12:12 PM EDT 02/09/20 24 Active busPIRone HCl 5 MG Oral Tablet (Buspar)Indication s:Bipolar depression (HCC) Take 1 Tablet by mouth 2 times a day as needed for Other (Anxiety). 20 Tablet 5 4 1:49 PM EDT 03/05/20 24 Active Creon 52066-10625 UNIT Oral Capsule Delayed Release Particles (Pancrelipase (Bha-Pvpb-Tmfm)) Take 1 Capsule by mouth in the [...] in the morning. 90 Tablet 3 4 2:10 PM EDT 03/12/20 24 Active Insulin Glargine Solostar 100 UNIT/ML Subcutaneous Solution Pen-injector (Lantus SoloStar)Indicatio ns:Type 2 diabetes, HbA1C goal < 8% (HCC) Inject 18 Units under the skin at bedtime. 15 mL 5 4 2:10 PM EDT 03/12/20 24 Active Insulin Lispro (1 Unit Dial) 100 UNIT/ML Subcutaneous Solution Pen-injector (Admelog) Active Melatonin 3 MG Oral Tablet at bedtime. 12/19/19 23 Active Pen [place] 32G X 4 MM Use as directed. 100 Each 5 4 12:28 PM EST 06/05/20 24 Active diazePAM 5 MG Oral Tablet (Valium) Take 1 Tablet by mouth as needed for Other (due to claustrophobia prior to MRI, ok to repeat once as needed). 2 Tablet 4 12:28 PM EST 06/05/20 24 Active documented as of this encounter (statuses as of 06/17/2024) Active Problems Problem Noted Date Diagnosed Date Unspecified mood (affective) disorder 12/01/2023 Type 2 diabetes mellitus with diabetic neuropath y 07/28/2023 Alcohol-induced chronic pancreatitis 09/21/2022 Alcohol abuse, uncomplicated 09/21/2022 Panic disorder (episodic paroxysmal anxiety) Calloway's esophagus without dysplasia 08/20/2019 Other chronic pancreatitis [...] as of this encounter (statuses as of 06/17/2024) Resolved Problems Problem Noted Date Diagnosed Date [...] as of this encounter (statuses as of 06/17/2024) Immunizations Name Administration Dates Next Due Pneumococcal [...] as of this encounter Progress Notes * LittlejohnTomas, DO - 06/17/2024 1:30 PM EST Raffi Zeng [id number] Raffi Zeng is a 48 year old male [facility]. Initial consult requested by Kelly Tadeo MD. Raffi Zeng is here unaccompanied. Notes from Dr. Tim Pena, Dr. Jesse Milan, and Dr. 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 He had a normal x-ray and normal MRI. He has tried Tylenol without relief he has tried lateral arm strap without relief here to talk about other options either Tenex or PRP. Patient had PRP by me on 03/19/2024. This was decided based on his lack of significant tendinosis seen on MRI. TODAY:he feels 100% better from a lateral extensor wads tendon standpoint. He still feels bilateral ulnar nerve symptoms. He was seen by Dr. Pena and doctor Shwetha. He had hydrodissection of the ulnar nerves without significant success. Additionally he had an EMG on 11/10/2023. I did review that. He has been wearing cubital tunnel brace. With minimal relief. He does report his A1c has been under better control. Previous Surgery/Subluxation/Dislocation: none REVIEW OF SYSTEMS Constitional: No change in weight, No weakness, No fatigue, and No fevers, sweats, or chills Patient Active Problem List Diagnosis Sciatica Esophageal reflux GENERALIZED ANXIETY DIS Tobacco use disorder Alcohol abuse, in remission Disorder of intervertebral disc Major depressive disorder Insomnia Type 2 diabetes, HbA1C goal < 8% ([facility]) Pulmonary embolism and infarction ([facility]) TERMINATED MEDICATION USAGE AGREEMENT ADHD, hyperactive-impulsive type Suicide attempt ([facility]) Chronic pain syndrome Bipolar depression ([facility]) History of alcohol abuse Other chronic pancreatitis ([facility]) Type 2 diabetes mellitus with hyperglycemia ([facility]) Panic disorder (episodic paroxysmal anxiety) Calloway's esophagus without dysplasia Alcohol-induced chronic pancreatitis ([facility]) Alcohol abuse, uncomplicated Type 2 diabetes mellitus with diabetic neuropathy ([facility]) Unspecified mood (affective) disorder ([facility]) Past Medical History: Diagnosis Date Acute pancreatitis r/t alcohol recurrent Alcohol abuse, unspecified sober since 2011 Allergic rhinitis due to other allergen Back pain Goes to a pain clinic [facility] 11/23/09 bxs --stomach --normal path--esophagus--Barretts repeat in one yr Bipolar depression ([facility]) 01/12/2016 Depressive disorder, not elsewhere classified Disorder of intervertebral disc Esophageal reflux Insomnia, unspecified Other anxiety states Pulmonary embolism and infarction ([facility]) 2015 Tobacco use disorder Current Outpatient Medications Medication Sig Dispense Refill Pantoprazole Sodium 40 MG Oral Tablet Delayed Release (Protonix) Take 1 Tablet by mouth in the morning. 90 Tablet 3 Ondansetron 4 MG Oral Tablet Disintegrating (Zofran) DISSOLVE 1 TABLET ON TONGUE twice a day As Needed for nausea and vomiting 20 Tablet 0 Omnipod 5 G6 Intro (Gen 5) Kit Use as directed. Use to administer insulin E 11.9 1 Kit 0 Omnipod 5 G6 Pod (Gen 5) Use 1 pod every 3 days E11.9 30 Each 3 Dexcom G6 Roll Mechanic Device Use as directed. Use for blood glucose E 11.9 1 Each 0 Dexcom G6 Transmitter Use as directed. Use 1 transmitter every 90 days 1 Each 3 Dexcom G6 Sensor Use as directed. Use 1 sensor every 10 days E11.9 9 Each 3 NovoLOG FlexPen 100 UNIT/ML Subcutaneous Solution Pen-injector (insulin aspart) Inject under the skin. Treats if only over 300. Albuterol Sulfate HFA 108 (90 Base) MCG/ACT Inhalation Aerosol Solution Inhale 2 Puffs by mouth every 6 hours as needed for Shortness of Breath. 18 g 5 PARoxetine HCl 30 MG Oral Tablet (Paxil) Take 1 Tablet by mouth in the morning. 30 Tablet 11 busPIRone HCl 5 MG Oral Tablet (Buspar) Take 1 Tablet by mouth 2 times a day as needed for Other (Anxiety). 20 Tablet 5 Creon 65501-05688 UNIT Oral Capsule Delayed Release Particles (Pancrelipase (Nhl-Lhas-Hfaa)) Take 1Capsule by mouth in the morning and 1 Capsule at noon and 1 Capsule in the evening. 90 Capsule 5 DULoxetine HCl 20 MG Oral Capsule Delayed Release Particles (duloxetine) Take 1 Capsule by mouth inthe morning. Do not cut, crush or chew. 90 Capsule 3 Cyclobenzaprine HCl 10 MG Oral Tablet (Flexeril) Take 1 Tablet by mouth 2 times a day as needed forMuscle spasms. 30 Tablet 5 Empagliflozin 10 MG Oral Tablet (Jardiance) Take 1 Tablet by mouth in the morning. 90 Tablet 3 Insulin Glargine Solostar 100 UNIT/ML Subcutaneous Solution Pen-injector (Lantus SoloStar) Inject 18 Units under the skin at bedtime. 15 mL 5 Insulin Lispro (1 Unit Dial) 100 UNIT/ML Subcutaneous Solution Pen-injector (Admelog) Melatonin 3 MG Oral Tablet at bedtime. Pen [place] 32G X 4 MM Use as directed. 100 Each 5 diazePAM 5 MG Oral Tablet (Valium) Take 1 Tablet by mouth as needed for Other (due to claustrophobia prior to MRI, ok to repeat once as needed). 2 Tablet 0 No current facility-administered medications for this visit. Lab Results Component Value Date/Time HEMOGLOBIN A1C - [facility] 7.6 (H) 01/26/2024 02:12 PM HEMOGLOBIN A1C - [facility] 9.3 (H) 07/28/2023 02:28 PM HEMOGLOBIN A1C - [facility] 10.2 (H) 10/03/2022 01:33 PM HEMOGLOBIN A1C - [facility] 8.9 (H) 03/10/2020 04:03 PM HEMOGLOBIN A1C - [facility] 7.8 (H) 08/20/2019 12:12 PM HEMOGLOBIN A1C - [facility] 9.5 (H) 05/24/2018 04:36 PM HEMOGLOBIN A1C, DBS - [facility] >8.0 (H) 05/05/2023 06:04 PM PHYSICAL EXAM General: in no acute distress, conversant Mood and Affect: normal Peripheral Pulses: normal in affected extremity (s) Skin Examination: normal on affect extremity (s) Sensation: normal on affected extremity (s) Neurovascular Assessment: normal Elbow Exam - Bilateral Passive ROM Right flexion 130 degrees (normal) | Extension 0 degrees (normal) Left flexion 130 degrees (normal) | Extension 0 degrees (normal) Carrying angle: normal Palpation: NO tenderness to palpation over common extensor wad, distal to lateral epicondyle Right Strength Test Resisted Wrist Flexion negative bilaterally Resisted Wrist Extension Test negative right Ligament Tests Valgus Stress: no significant laxity vs. asymptomatic joint Varus Stress: no significant laxity vs. asymptomatic joint Radiology -repeat imaging not indicated ASSESSMENT AND PLAN From an extensor tendon standpoint he is doing well. No further follow up. I believe PRP worked. From an ulnar nerve standpoint I recommend he continue his cubital tunnel braces continue with A1c control. I will see him back in 4 months based on that I may consider doing ulnar nerve injection as well Lateral epicondylitis of right elbow (Primary) Ulnar nerve entrapment syndrome, unspecified laterality Tomas Littlejohn DO Primary Care Sports Medicine [facility] [address] [address] This chart was completed in part utilizing [employer] Speech Voice Recognition Software. Grammatical errors, random word insertions, pronoun errors, and incomplete sentences are an occasional consequence of this system due to software limitations, ambient noise, and hardware issues. Any formal questions or concerns about the content, text, or information contained within the body of this dictation should be directly addressed to the provider for clarification. documented in this encounter Nursing Notes * Jocelyne Mai LPN - 06/17/2024 1:41 PM EST Follow up Patient Follow up: Elbow Side: Right Date of last visit: 03/19/2024 Improvement since last office visit: 100 percent. Prior Treatment: PRP Here for Test Results: No Goals for this appointment: 3 month follow up. Does have numbness of bilateral fingers; middle, ring and pinky. documented in this encounter Plan of Treatment Upcoming Encounters Date Type Department Care Team (Late st Contact Info) Description 06/28/2024 2:45 PM EST Imaging Radiology [facility] [address] [facility] [address] 09/10/2024 6:00 PM EST Office Visit Family Practice [facility] [address] [place] [address] Dhiraj Myers, DO [address] [facility] [place] [address] 09/30/2024 2:00 PM EST Office Visit Orthopaedics [facility] [address] [facility] [address] Tomas Littlejohn, DO [address] [facility] [place] [address] Scheduled Procedures Name Priority Associated Diagnoses Date/Ti [...] 12/16/2013 Cologuard 2018 Colonoscopy 2018 Sigmoidoscopy 2018 Calloway's Esophagus Surveilance 09/18/2021 09/18/2018, 03/05/2018, 10/31/2014, Additional history exists Diabetic Foot Exam 10/23/2021 10/23/2020, 0 10/12/2017, 01/12/2016, Additional history exists Diabetic Eye Exam 10/13/2022 10/13/2021, , 08/13/2018, Additional history exists Zoster Vaccines (1 of 2) 11/08/2023 COVID-19 Vaccine (1 - 2023- season) 2024 Influenza Vaccine (FLU shot) (#1) [...] as of this encounter Visit Diagnoses Diagnosis Lateral epicondylitis of right elbow- Primary Lateral epicondylitis of elbow Ulnar nerve entrapment syndrome, unspecified laterality documented in this encounter Advance Directives Healthcare Agents on File Name Relationship Healthcare Agent [facility] p Communication [facility] Repr esentative (appointed verbally by patient or by statute hierarchy) Care Teams Senior Corporate Accountant Relationship Specialty Start Date End Date Dhiraj Myers DO [address] [place] [address] PCP - General Family Medicine 01/24/17 documented as of this encounter"
--- OUTSIDE RECORDS SUMMARY | 2024-10-04 03:25 | External Medical Summary | Summary of Care ---
Author Name Unknown Organization [facility] Address [address] [facility] [place] [address] Phone [phone] Care Team Providers Care Integration Solution Architect Name Role Phone Dhiraj Myers DO Primary Care Provider [phone] Reason for Visit * Reason Onset Date Comments Health Maintenance 07/11/2024 Encounter Details Date Type Department Care Team (Late st Contact Info) Description 07/11/2024 Telephone Family Practice [facility] [address] [place] [address] Dhiraj Myers DO 200 [facility] [place] [address] Health Maintenance Allergies No known active allergiesdocumented as of this encounter (statuses as of 07/11/2024) Medications Pantoprazole Sodium 40 MG Oral Tablet [...] PM EST 09/07/19 24 Active Dexcom G6 Lobby Concierge Device Use as directed. Use for blood [...] 1:49 PM EDT 03/05/20 24 Active Creon 38454-90411 UNIT Oral Capsule Delayed Release Particles (Pancrelipase (Yfl-Drcy-Puyz)) Take 1 Capsule by mouth in the [...] Tablet at bedtime. 12/19/19 23 Active Pen [facility] 32G X 4 MM Use as directed. 100 Each 5 4 12:28 PM EST 06/05/20 24 Active diazePAM 5 MG Oral Tablet (Valium) Take 1 Tablet by mouth as needed for Other (due to claustrophobia prior to MRI, ok to repeat once as needed). 2 Tablet 4 12:28 PM EST 06/05/20 24 Active documented as of this encounter (statuses as of 07/11/2024) Active Problems Problem Noted Date Diagnosed Date [...] as of this encounter (statuses as of 07/11/2024) Resolved Problems Problem Noted Date Diagnosed Date [...] as of this encounter (statuses as of 07/11/2024) Immunizations Name Administration Dates Next Due Pneumococcal [...] Telephone Encounter - Patricia Barr LPN - 07/11/2024 11:36 AM EST Care Gaps Comprehensive Care Outreach Last Office/Telemedicine Visit: 03/05/2024 (in office), Visit date not found (telemedicine) Next Office Visit: 09/10/2024 Hemoglobin AIC Results: Lab Results Component Value [...] - [facility] >8.0 (H) 05/05/2023 06:04 PM BP Readings from Last 1 Encounters: 06/05/24 122/64 Reviewed Health Maintenance below: Health Maintenance Topic Date Due HIV Screening Never done Hepatitis C Screening Never done Hepatitis B Vaccine (1 of 3 - 19+ 3-dose series) Never done Pneumococcal Vaccine: Pediatrics (0 to 5 Years) and At-Risk Patients (6 to 64 Years) (2 of 2 - PCV)12/16/2014 Renae's Esophagus Surveilance 09/18/2021 Diabetic Foot Exam 10/23/2021 Diabetic Eye Exam 10/13/2022 Zoster Vaccines (1 of 2) Never done Influenza Vaccine (FLU shot) (1) 04/07/2024 COVID-19 Vaccine (1 - season) Never done DTap/Tdap Vaccines (2 - Td or Tdap) 06/19/2024 HbA1c 07/27/2024 Eye Lab already ordered Care Gap Outreach Action Taken: Nirvahat message sent documented in this encounter Plan of Treatment Upcoming Encounters Date Type Department Care Team (Late st Contact Info) Description 09/10/2024 6:00 PM EST Office Visit Family Practice [facility] [address] [facility] [place] [address] Dhiraj Myers, DO 200 [facility] [place] [address] 09/30/2024 2:00 PM EST Office Visit Orthopaedics [facility] [address] [place] [address] Tomas Littlejohn, DO [address] [place] [address] Scheduled Procedures Name Priority Associated Diagnoses Date/Ti [...] Name Relationship Healthcare Agent Relationshi p Communication [facility] Repr esentative (appointed verbally by patient or by statute hierarchy) Care Teams Integration Solution Architect Relationship Specialty Start Date End Date Dhiraj Myers DO [address] [place] [address] PCP - General Family Medicine 01/24/17 documented as of this encounter
[2024-10-04] MEDS ORDERED: LORazepam 2 MG/1 ML VIAL IV PRN ×2 (03:26)
[2024-10-04] MEDS ORDERED: Ativan IV Alcohol Withdrawal--Active Protocol IV PRN (03:26)
[2024-10-04] MEDS ORDERED: DEXTROSE 50% 50 ML SYRINGE IV PRN (03:26)
[2024-10-04] MEDS ORDERED: GLUCOSE 40% GEL 15 GM TUBE PO PRN (03:26)
[2024-10-04] MEDS ORDERED: GLUCOSE 10 TAB/TUBE PO PRN (03:26)
[2024-10-04] MEDS ORDERED: CARBOHYDRATES FOR HYPOGLYCEMIA PO PRN (03:26)
[2024-10-04] MEDS ORDERED: NITROGLYCERIN SL 0.4 MG/TAB TAB SL PRN (03:26)
[2024-10-04] MEDS ORDERED: GLUCAGON FOR INJ 1 MG VIAL SQ PRN (03:26)
[2024-10-04] MEDS ORDERED: CYCLOBENZAPRINE HCL 10 MG TAB PO PRN (03:26)
[2024-10-04] MEDS ORDERED: ALBUTEROL HFA 8 GM INHALER INH PRN (03:26)
--- OUTSIDE RECORDS SUMMARY | 2024-10-04 03:26 | External Medical Summary | Summary of Care ---
Author Name Unknown Organization [facility] Address [address] [facility] [place] [address] Phone [phone] Care Team Providers Care Rn Primary Care Name Role Phone Dhiraj Myers DO Primary Care Provider [phone] Reason for Referral * Precert (Within 10 days (routine)) - Pending Review Specialty Diagnoses / Procedures Referred By Contac t Referred To Contact Radiology Diagnoses Lumbar radiculopathy History of lumbosacral spine surgery Procedures MRI L SPINE W WO CONTRAST Reynaldo Craig MD [address] [place] [address] Referral ID Status Reason Start Date Expiration Date V isits Requested Visits Authorized [id number] Pending Review 06/06/2024 999 999 Reason for Visit * Reason Comments Acute Pt here for low back and hip pain for the last month. Pt has been taking flexeril, tylenol, and heat for the pain but has not helped. Encounter Details Date Type Department Care Team (Late st Contact Info) Description 06/05/2024 11:20 AM EDT Office Visit Family Practice [facility] [address] [place] [address] Reynaldo Craig MD [address] [place] [address] Lumbar radiculopathy*; History of lumbosacral spine surgery Allergies No known active allergiesdocumented as of this encounter (statuses as of 06/05/2024) Medications Medication Sig Dispensed Refills Start Date End Date Status Pantoprazole Sodium 40 MG Oral Tablet Delayed Release (Protonix)Indicatio ns:Gastroesophageal reflux disease without esophagitis,Renae 's esophagus without dysplasia Take 1 Tablet by mouth in the morning. 90 Tablet 3 3 Active Ondansetron 4 MG Oral Tablet Disintegrating (Zofran) DISSOLVE 1 TABLET ON TONGUE twice a day As Needed for nausea and vomiting 20 Tablet 4 Active Omnipod 5 G6 Intro (Gen 5) Kit Use as directed. Use to administer insulin E 11.9 1 Kit 4 Active Omnipod 5 G6 Pod (Gen 5) Use 1 pod every 3 days E11.9 30 Each 3 4 Active Dexcom G6 Director Of Medical Review Device Use as directed. Use for blood glucose E 11.9 1 Each 4 Active Dexcom G6 Transmitter Use as directed. Use 1 transmitter every 90 days 1 Each 3 4 Active Dexcom G6 Sensor Use as directed. Use 1 sensor every 10 days E11.9 9 Each 3 4 Active NovoLOG FlexPen 100 UNIT/ML Subcutaneous Solution Pen-injector (insulin aspart) Inject under the skin. Treats if only over 300. Active Albuterol Sulfate HFA 108 (90 Base) MCG/ACT Inhalation Aerosol Solution Inhale 2 Puffs by mouth every 6 hours as needed for Shortness of Breath. 18 g 5 4 Active PARoxetine HCl 30 MG Oral Tablet (Paxil) Take 1 Tablet by mouth in the morning. 30 Tablet 11 4 Active busPIRone HCl 5 MG Oral Tablet (Buspar)Indications :Bipolar depression (HCC) Take 1 Tablet by mouth 2 times a day as needed for Other (Anxiety). 20 Tablet 5 4 Active Creon 98934-99219 UNIT Oral Capsule Delayed Release Particles (Pancrelipase (Sqk-Acuj-Ozjb)) Take 1 Capsule by mouth in the morning and 1 Capsule at noon and 1 Capsule in the evening. 90 Capsule 5 4 Active DULoxetine HCl 20 MG Oral Capsule Delayed Release Particles (duloxetine)Indicat ions:Major depressive disorder with single episode, remission status unspecified Take 1 Capsule by mouth in the morning. Do not cut, crush or chew. 90 Capsule 3 4 Active Cyclobenzaprine HCl 10 MG Oral Tablet (Flexeril)Indicatio ns:Chronic low back pain without sciatica, unspecified back pain laterality Take 1 Tablet by mouth 2 times a day as needed for Muscle spasms. 30 Tablet 5 4 Active Empagliflozin 10 MG Oral Tablet (Jardiance)Indicati ons:Type 2 diabetes, HbA1C goal < 8% (HCC) Take 1 Tablet by mouth in the morning. 90 Tablet 3 4 Active Insulin Glargine Solostar 100 UNIT/ML Subcutaneous Solution Pen-injector (Lantus SoloStar)Indication s:Type 2 diabetes, HbA1C goal < 8% (HCC) Inject 18 Units under the skin at bedtime. 15 mL 5 4 Active Insulin Lispro (1 Unit Dial) 100 UNIT/ML Subcutaneous Solution Pen-injector (Admelog) Active Melatonin 3 MG Oral Tablet at bedtime. 3 Active Pen Princeton 32G X 4 MM Use as directed. 100 Each 5 4 Active diazePAM 5 MG Oral Tablet (Valium) Take 1 Tablet by mouth as needed for Other (due to claustrophobia prior to MRI, ok to repeat once as needed). 2 Tablet 4 Active Pen Princeton 32G X 4 MM Use as directed. 100 Each 5 3 06/05/20 24 Discontinu ed(Refill) Insulin Aspart 100 UNIT/ML Injection Solution (NovoLOG)Indication s:Type 2 diabetes, HbA1C goal < 8% (HCC),Type 2 diabetes mellitus with hyperglycemia, with long-term current use of insulin (HCC) Up to 100 units daily via insulin pump E 11.9 30 mL 3 4 06/05/20 24 Discontinu ed(Medicat ion List Clean Up) documented as of this encounter (statuses as of 06/05/2024) Active Problems Problem Noted Date Diagnosed Date [...] QAM, 600mg QPM, librium taper. Referred to [facility]. Refused rehab. Grandmother cancer around -was close. Father committed suicide by gunshot 5mo later, patient found body ICD-10 update of inactive term Insomnia documented as of this encounter (statuses as of 06/05/2024) Resolved Problems Problem Noted Date Diagnosed Date [...] as of this encounter (statuses as of 06/05/2024) Immunizations Name Administration Dates Next Due Pneumococcal [...] Sign Reading Time Taken Comments Blood Pressure 122/64 06/05/2024 11:51 AM EDT Pulse 89 06/05/2024 11:51 AM EDT Temperature 36.5 C (97.7 F) 06/05/2024 11:51 AM E DT Respiratory Rate 16 06/05/2024 11:51 AM EDT Oxygen Saturation 99% 06/05/2024 11:51 AM EDT Inhaled Oxygen Concentration - - Weight 78.2 kg (172 lb 6.4 oz) 06/05/2024 11:51 AM EDT Height 182.9 cm (6') 06/05/2024 11:51 AM EDT Body Mass Index 23.38 06/05/2024 11:51 AM EDT documented in this encounter Progress Notes * Reynaldo Craig MD - 06/05/2024 12:09 PM EDT Images from the original note were not included. History of Present Illness Raffi Zeng is a 48 year old male that presents for Acute (Pt here for low back and hip pain forthe last month. Pt has been taking flexeril, tylenol, and heat for the pain but has not helped.) 48 yo male patient of Dr Myers with symptoms over the last month or so with worsening pain, numbness, tingling in low back and upper buttocks and then radiation around to the front of his legs. This occurs on both sides but he feels it is worse on the left. There was no inciting injury or fall that he reports. 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 Physical Exam BP 122/64 (BP Site: Left Arm, BP Position: Sitting, BP Cuff Size: Regular) | Pulse 89 | Temp 36.5 C (97.7 F) (Tympanic) | Resp 16 | Ht 1.829 m (6') | Wt 78.2 kg (172 lb 6.4 oz) | SpO2 99% | BMI 23.38 kg/m | BSA 1.99 m AAOx3 Anxious affect NCAT/ Ext warm and well perfused No gross neuro deficit 2+ patellar DTR b/l + spasticity of legs + well healed surgical scar mid spine + spasm of lumbar paraspinals + point tenderness right sacral dimple Antalgic gait Standing in slightly flexed posture, pain increased with spinal extension I have reviewed most recent labs Hemoglobin A1C Assessment and Plan Lumbar radiculopathy - acute sx with hx of same and concern for herniation about hte level of his previous lumbar fusionbased on sx and location. L3-L4 disc would be the concern. Will proceed with advanced imaging. Doubt hardware failure. There was no inciting injury and he is having radicular sx. No steroids due to DM. Valium given for procedural claustrophobia. History of lumbosacral spine surgery - patient had surgery with Dr Licona about 10 years ago - L4-l5 and l5-s1 discectomy, l5 lami, with interbody fusion and instrumentation Wrap-Up F/u after imaging with PCP Time: I spent a total of 20-29 minutes (exact time 23 mins) on the date of service in preparation, delivery, and documentation of the care provided to Raffi Zeng excluding any time spent in the performance of separately billed services. documented in this encounter Plan of Treatment Upcoming Encounters Date Type Department Care Team (Late st Contact Info) Description 06/17/2024 1:30 PM EST Office Visit Orthopaedics [facility] [address] [facility] [place] [address] Tomas Littlejohn, [address] [facility] [place] [address] 06/28/2024 2:45 PM EST Imaging Radiology [facility] [address] [facility] [address] [facility] [place] [address] 09/10/2024 6:00 PM EST Office Visit Family Practice [facility] [address] [facility] [place] [address] Dhiraj Myers, DO [address] [facility] [place] [address] Scheduled Orders Name Type Priority Associated Diagnoses Orde r Schedule MRI L SPINE W WO CONTRAST Medical Imaging Routine Lumbar radiculopathy History of lumbosacral spine surgery Expected: 06/06/2024, Expires: 07/06/2025 BASIC METABOLIC PANEL Lab Routine Lumbar radiculopathy History of lumbosacral spine surgery Expected: 06/05/2024 (Approximate), Expires: 06/05/2025 Scheduled Procedures Name Priority Associated Diagnoses Date/Ti [...] as of this encounter Visit Diagnoses Diagnosis Lumbar radiculopathy- Primary Thoracic or lumbosacral neuritis or radiculitis, unspecified History of lumbosacral spine surgery Personal history of surgery to other organs documented in this encounter Advance Directives Healthcare Agents on File Name Relationship Healthcare Agent [facility] Communication [facility] Repr esentative (appointed verbally by patient or by statute hierarchy) Care Teams Rn Primary Care Relationship Specialty Start Date End Date Dhiraj Myers DO [address] [place] [address] PCP - General Family Medicine 01/24/17 documented as of this encounter"
--- OUTSIDE RECORDS SUMMARY | 2024-10-04 03:26 | External Medical Summary | Summary of Care ---
Author Name Unknown Organization [facility] Address [address] [facility] [place] [address] Phone [phone] Care Team Providers Care Fashion Director Name Role Phone Dhiraj Myers DO Primary Care Provider [phone] Reason for Visit * Reason Onset Date Comments MyCode Nonconsent - Personal Reasons 06/05/2024 Encounter Details Date Type Department Care Team (Late st Contact Info) Description 06/05/2024 Orders Only Outcomes Research Department [address] [place] [address] Ashley Arias CHRA MyCode Nonconsent Documentation Allergies No known active allergiesdocumented as of this encounter (statuses as of 06/05/2024) Medications Medication Sig Dispensed Refills Start Date End Date Status Pen Redfox 32G X 4 MM Use as directed. 100 Each 5 02/24/2023 Active Pantoprazole Sodium 40 MG Oral Tablet [...] 30 Each 3 09/07/2023 Active Dexcom G6 Agent Licensing Clerk Device Use as directed. Use for blood glucose E 11.9 1 Each 09/07/2023 Active Dexcom G6 Transmitter Use as directed. Use 1 transmitter every 90 days 1 Each 09/07/2023 Active Dexcom G6 Sensor Use as directed. Use 1 sensor every 10 days E11.9 9 Each 09/07/2023 Active NovoLOG FlexPen 100 UNIT/ML Subcutaneous Solution Pen-injector (insulin aspart) Inject under the skin. Treats if only over 300. Active Albuterol Sulfate HFA 108 (90 Base) MCG/ACT Inhalation Aerosol Solution Inhale 2 Puffs by mouth every 6 hours as needed for Shortness of Breath. 18 g 01/02/2024 Active PARoxetine HCl 30 MG Oral Tablet (Paxil) Take 1 Tablet by mouth in the morning. 30 Tablet 02/09/2024 Active busPIRone HCl 5 MG Oral Tablet (Buspar)Indications :Bipolar depression (HCC) Take 1 Tablet by mouth 2 times a day as needed for Other (Anxiety). 20 Tablet 03/05/2024 Active Creon 75170-21464 UNIT Oral Capsule Delayed Release Particles (Pancrelipase (Dgr-Gsht-Yzte)) Take 1 Capsule by mouth in the morning and 1 Capsule at noon and 1 Capsule in the evening. 90 Capsule 03/05/2024 Active DULoxetine HCl 20 MG Oral Capsule Delayed Release Particles (duloxetine)Indicat ions:Major depressive disorder with single episode, remission status unspecified Take 1 Capsule by mouth in the morning. Do not cut, crush or chew. 90 Capsule 03/05/2024 Active Cyclobenzaprine HCl 10 MG Oral Tablet (Flexeril)Indicatio ns:Chronic low back pain without sciatica, unspecified back pain laterality Take 1 Tablet by mouth 2 times a day as needed for Muscle spasms. 30 Tablet 03/05/2024 Active Empagliflozin 10 MG Oral Tablet (Jardiance)Indicati ons:Type 2 diabetes, HbA1C goal < 8% (HCC) Take 1 Tablet by mouth in the morning. 90 Tablet 03/12/2024 Active Insulin Glargine Solostar 100 UNIT/ML Subcutaneous Solution Pen-injector (Lantus SoloStar)Indication s:Type 2 diabetes, HbA1C goal < 8% (HCC) Inject 18 Units under the skin at bedtime. 15 mL 03/12/2024 Active Insulin Aspart 100 UNIT/ML Injection Solution (NovoLOG)Indication s:Type 2 diabetes, HbA1C goal < 8% ([facility]),Type 2 diabetes mellitus with hyperglycemia, with long-term current use of insulin ([facility]) Up to 100 units daily via insulin pump E 11.9 30 mL 3 2023 Discontinu ed(Medicat ion List Clean Up) documented [...] as of this encounter Progress Notes * Ashley Arias CHRA - 06/05/2024 11:36 AM EDT MyCode Nonconsent Documentation Raffi Zeng was approached in the clinic regarding participation in the MyCode Project and did not consent. documented in this encounter Plan of Treatment Upcoming Encounters Date Type Department Care Team (Late st Contact Info) Description 06/17/2024 1:30 PM EST Office Visit Orthopaedics [facility] [address] [place] [address] Tomas Littlejohn, DO [address] [facility] [address] 09/10/2024 6:00 PM EST Office Visit Family Practice [facility] [address] [facility], [place] [address] Dhiraj Myers DO [address] [facility] [place], [place] [address] Scheduled Procedures Name Priority Associated Diagnoses Date/Ti [...] Agents on File Name Relationship [facility] Communication [facility] Repr esentative (appointed verbally by patient or by statute hierarchy) Care Teams Fashion Director Relationship Specialty Start Date End Date Dhiraj Myers DO [address] [facility] [place] [address] PCP - General Family Medicine 01/24/17 documented as of this encounter
[2024-10-04] MEDS: ONDANSETRON INJ 2 MG/ML 2 ML VIAL IV PRN (03:36)
[2024-10-04] MEDS: HYDROmorphone INJ 0.5 MG/0.5 ML SYR IV PRN (03:36)
[2024-10-04] MEDS: HYDROmorphone INJ 0.5 MG/0.5 ML SYR ONE (03:37)
[2024-10-04] MEDS: ONDANSETRON INJ 2 MG/ML 2 ML VIAL ONE (03:37)
[2024-10-04] MEDS: GABAPENTIN 600 MG TAB PO ONE (03:37)
[2024-10-04] MEDS: GABAPENTIN 1200MG ALCOHOL WITHDRAWAL LOAD PO STA (04:25)
[2024-10-04] MEDS: SODIUM CHLORIDE 0.9% 1,000 ML IV SCH (07:43)
[2024-10-04] MEDS ORDERED: oxyCODONE HCL IR 5 MG TAB (IMMEDIATE RELEASE) PO PRN (07:53)
[2024-10-04 08:14] LABS: Basophils # (auto) 0.03 K/uL (0.00-0.20); Basophils % (auto) 0.7 %; Eosinophils # (auto) 0.13 K/uL (0.00-0.50); Eosinophils % (auto) 3.1 %; Hematocrit (blood only) 39.9 % (42.0-52.0); Hemoglobin 14.3 g/dl (14.0-18.0); Immature Granulocytes # (auto) 0.01 K/uL (0.01-0.20); Immature Granulocytes % (auto) 0.2 %; Lymphocytes # (auto) 1.26 K/uL (1.20-3.40); Lymphocytes % (auto) 29.6 %; Mean Corpuscular Hemoglobin 34.5 pg (25.0-34.0); Mean Corpuscular Hgb Conc 35.8 g/dL (32.0-36.0); Mean Corpuscular Volume 96.1 fL (80.0-100.0); Mean Platelet Volume 9.6 fL (9.4-12.4); Monocytes # (auto) 0.39 K/uL (0.11-0.59); Monocytes % (auto) 9.2 %; Neutrophils # (auto) 2.44 K/uL (1.40-6.50); Neutrophils % (auto) 57.2 %; Platelet Count 110 K/uL (130-400); RDW Coefficient of Variation 11.5 % (11.5-14.5); RDW Standard Deviation 40.8 fL (36.4-46.3); Red Blood Count 4.15 M/uL (4.70-6.10); White Blood Count 4.26 K/ul (4.8-10.8)
[2024-10-04] MEDS: PANTOprazole 40 MG/10 ML SYR IV SCH (08:26)
[2024-10-04] MEDS: MULTIVITAMIN TAB PO SCH (08:27)
[2024-10-04] MEDS: FOLIC ACID 1 MG TAB PO SCH (08:27)
[2024-10-04] MEDS: APIXABAN 5 MG TABLET PO SCH (08:27)
[2024-10-04] MEDS: THIAMINE HCL 100 MG TAB PO SCH (08:27)
[2024-10-04] MEDS: DULoxetine HCL 20 MG CAP PO SCH (08:28)
[2024-10-04] MEDS: PARoxetine HCL 20 MG TAB PO SCH (08:28)
[2024-10-04 08:30] LABS: Albumin Level 3.4 gm/dl (3.4-5.0); BUN Creatinine Ratio 7.7 (10-20); Bilirubin Direct 1.1 mg/dl (0-0.2); Bilirubin,Total 1.7 mg/dl (0.2-1.0); Creatinine Clr Calc Pharmacy 147.5 ml/min; Magnesium 1.9 mg/dl (1.7-2.4); Phosphorus 3.4 mg/dl (2.5-4.9); Potassium 3.8 mmol/L (3.5-5.1); Total Protein 6.2 gm/dl (6.0-8.3)
[2024-10-04 08:34] LABS: Troponin I High Sensitivity 2.7 pg/ml (0-20)
[2024-10-04] MEDS: LORazepam 2 MG/1 ML VIAL IV PRN (09:59)
[2024-10-04] MEDS: GABAPENTIN 600 MG TAB PO SCH ×2 (10:00→23:03)
--- NOTE | 2024-10-04 10:05 | Gastrointestinal Consultation ---
Date of Consultation October 04, 2024 Assessment & Plan (1) Abdominal pain: (2) Nausea: (3) History of alcohol abuse: (4) Chronic pancreatitis: (5) Dysphagia: Plan Patient here with complaints of nausea, vomiting, abdominal pain in the setting of chronic alcohol use. CT suggestive of chronic pancreatitis and a nonspecific enteritis. he endorses of dysphagia to solids, but tolerated liquids this morning. - recommended cessation of all alcohol use. encouraged seeking rehab. - would recommend that he look into an outpatient EGD to evaluate his swallowing. He tells me he had followed with [facility] in the past. Currently tolerating clears. - Continue with protonix 40mg once daily. Supervising Physician Co-Signing Physician Notes Abdominal pain may be related to pancreatitis in a gentleman with chronic pancreatitis lipase does not necessarily need to elevate. Liver enzymes have significantly increased from yesterday to today. 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 CT does not show any evidence of biliary dilatation. Is not getting acetaminophen or Tylenol. Recheck tomorrow. He also notes solid food dysphagia for at least the last few months. Mostly the meats. Does get heartburn indigestion but takes a PPI. Once he is through this acute process. An upper endoscopy potential esophageal dilatation seems appropriate. Patient on withdrawal protocols. Previously abstained for 4 years until his father committed suicide. States he has tried multiple times up to 7 to remain off alcohol. Unfortunately relapses. History of Present Illness Reason for Consultation: dysphagia? Requesting Physician: Jed Sousa MD Attending Physician: Santhosh Pollard MD History of Present Illness Patient is a 48 year old male with past medical history significant for type II diabetes, alcohol induced chronic pancreatitis, history of pulmonary embolism - off anticoagulation, GERD, Renae's esophagus, sciatica, chronic pain syndrome, bipolar depression, general anxiety disorder, major depression, ADHD, history of suicide attempt, history of panic disorder, presents with abdominal pain and request for alcohol detox. Abdominal pain can radiate into his back and chest. He tells me that he has had pancreatitis about 12 times since 2009. he has chronic alcohol use and tells me he drinks 8-9 beers a day and has done so since his 20s. he also admits to some nausea, vomiting, and acid reflux. he does admit to some dysphagia to foods. he tolerated his liquid breakfast today. He tells me his biggest concern is his pain and he wishes to work on stopping drinking. rest of GI ros are unremarkable. He admits to having had an EGD years ago with [facility] that was he reports was unremarkable. 10/03 wbc 5.27, hgb 15.7, hct 43.4, platelets 137. INR 1. sodium 130, glucose 209, t bili 1.2, ast 61, alt 56, alk phos 150, lipase 8. ETOH 299.2. CT 10/03 Chronic pancreatitis change with parenchymal calcifications, gland atrophy, and duct dilatation. No CT evidence of acute pancreatitis. Correlate with serum lipase. 2. Fluid within loops of small bowel. This could be incidental or could represent a nonspecific enteritis. 10/03 CTA No evidence of acute pulmonary embolism. Allergies Allergy/AdvReac Type Severity Reaction Status Date / Time No Known Allergies Allergy Verified 08/14/23 21:23 Home Medications Medication Instructions Recorded Confirmed Type pantoprazole 40 mg tablet,delayed 40 mg PO DAILYBB 01/03/23 10/04/24 History release apixaban 5 mg tablet (Eliquis) 5 mg PO BID 06/23/23 10/04/24 History folic acid 1 mg tablet 1 mg PO QAM #30 tabs 08/17/23 10/04/24 Rx ondansetron 4 mg disintegrating 4 mg PO BID PRN nausea and 08/17/23 10/04/24 Rx tablet vomiting #20 tabs thiamine HCl (vitamin B1) 100 mg 100 mg PO QAM #30 tabs 08/17/23 10/04/24 Rx tablet albuterol sulfate 90 mcg/actuation 2 puff inhalation Q6 PRN Shortness 02/01/24 10/04/24 History aerosol inhaler Of Breath cyclobenzaprine 10 mg tablet 10 mg PO BID PRN Muscle Spasm 02/01/24 10/04/24 History duloxetine 20 mg capsule,delayed 20 mg PO QAM 02/01/24 10/04/24 History release empagliflozin 10 mg tablet 10 mg PO DAILY 02/01/24 10/04/24 History (Jardiance) insulin glargine 100 unit/mL 18 unit subcut HS 02/01/24 10/04/24 History subcutaneous solution (Lantus U-100 Insulin) paroxetine HCl 30 mg tablet 30 mg PO QAM 06/04/24 10/04/24 History Patient History Medical History Abdominal pain Pancreatic duct stones Abdominal pain, acute, epigastric Retrosternal chest pain History of pulmonary embolism Alcohol withdrawal Alcoholic ketosis COVID-19 Nausea & vomiting Alcohol abuse Abdominal pain Surgical History S/P lumbar fusion L4-S1 2015 Family History Father Alcohol abuse Social History Smoking Status: Never smoker Tobacco Type: Smokeless Tobacco (Dip or Chew) Second Hand Exposure: No; Do You Dip or Chew Tobacco: Yes; Hx Alcohol Use: Yes Alcohol type: beer Hx Substance Use: No Preferred Language: Chinese Communication Ability: Effective Furniture Packer Required: No Beliefs That Will Affect Care: None marital status: Current Living Situation: Parent Current Living Situation Comment: mobile home with mother How many Children do You have: 3 Feels Safe at Home: Yes Safety Concerns: Feels Safe At This Time Assistive Devices: None Review of Systems Review of Systems: All systems reviewed & are unremarkable except as noted in HPI & below Physical Exam Constitutional: WD/WN, vitals as above Respiratory: normal respiratory effort, lungs clear to auscultation Cardiovascular: Rate/Rhythm: regular rate and regular rhythm Gastrointestinal (Abdomen): mild diffuse tenderness, no guarding, soft, normal bowel sounds. Psychiatric: Orientation: alert and oriented x 3 Affect: euthymic affect Results & Data Vital Signs (Past 12 Hours) Vital Signs Temp Pulse Pulse Resp BP Pulse Ox Pulse Ox 10/04/24 08:30 90 18 133/75 96 10/04/24 07:30 97.5 F L 86 16 118/78 100 10/04/24 06:42 79 15 95/66 L 92 10/04/24 04:00 83 18 111/63 92 10/04/24 03:54 93 10/04/24 00:59 99 H 20 108/70 98 10/03/24 23:58 94 H 18 118/78 97 10/03/24 23:37 86 10/03/24 23:24 92 H 16 121/83 98 O2 Del Method O2 Del Method 10/04/24 08:30 Room Air 10/04/24 07:30 Room Air 10/04/24 06:42 Room Air 10/04/24 04:00 Room Air 10/04/24 03:54 Room Air 10/04/24 00:59 Room Air 10/03/24 23:58 Room Air 10/03/24 23:37 10/03/24 23:24 Room Air Coding Level of Care Code 34962 IN/OBS CONSULT LVL 4,60M Diagnoses Abdominal pain R10.84 Abdominal location: generalized Nausea R11.0 History of alcohol abuse F10.11 Chronic pancreatitis K86.0 Pancreatitis type: alcohol induced Dysphagia R13.10 (1) Abdominal pain Abdominal location: generalized Qualified Code(s): R10.84 - Generalized abdominal pain (4) Chronic pancreatitis Pancreatitis type: alcohol induced Qualified Code(s): K86.0 - Alcohol-induced chronic pancreatitis
[2024-10-04] MEDS: INSULIN ASPART PER UNIT CHARGE SC SCH (10:08)
[2024-10-04 10:42] LABS: Estimated Average Glucose 163 mg/dl; Hemoglobin A1C 7.3 % (4.5-5.6)
[2024-10-04] MEDS: HYDROmorphone HCL 2 MG TAB PO PRN (15:58)
--- NOTE | 2024-10-04 16:33 | Communication Note ---
Patient seen and examined at bedside. Patient states he has the same pain he always gets when he gets pancreatitis. He states he gets pancreatitis frequently. He describes the pain as being in his abdomen and radiating to his back. He specifically requests IV Dilaudid, does not really want to try oral options. This provider explained that we will hold Dilaudid at the equivalent dose of the IV should be sufficient for his pain. He is willing to try this at this time. Appreciative of the update. Date of Service: October 04, 2024
--- NOTE | 2024-10-04 21:22 | Electrocardiogram Report ---
Test Reason : Blood Pressure : */* mmHG Vent. Rate : 96 BPM Atrial Rate : 96 BPM P-R Int : 146 ms QRS Dur : 78 ms QT Int : 336 ms P-R-T Axes : 69 58 62 degrees QTcB Int : 424 ms Normal sinus rhythm Normal ECG When compared with ECG of 04-Jun-2024 19:46, No significant change was found Confirmed by Antoni Meek ([id number]) on 10/04/2024 9:22:00 PM Referred By: REFERRED SELF Confirmed By: Antoni Meek
[2024-10-04] MEDS: LANTUS PER UNIT CHARGE SQ SCH (21:38)
[2024-10-05 10:20] LABS: Albumin Globulin Ratio 1.2 (0.9-2); Albumin Level 3.3 gm/dl (3.4-5.0); BUN Creatinine Ratio 6.7 (10-20); Bilirubin,Total 1.6 mg/dl (0.2-1.0); Calcium 9.2 mg/dl (8.6-10.3); Creatinine Clr Calc Pharmacy 129.3 ml/min; Globulin 2.7 gm/dl (2.5-4.0); Potassium 3.7 mmol/L (3.5-5.1)
--- NOTE | 2024-10-05 13:39 | Hospitalist Progress Note ---
Date of Service October 05, 2024 Assessment & Plan (1) Abdominal pain: Plan: 48-year-old male with past medical history significant for type 2 diabetes, alcohol induced chronic pancreatitis, history of pulmonary embolism, GERD, Renae's esophagus, sciatica, chronic pain syndrome, bipolar depression, general anxiety disorder, major depression, ADHD, history of suicide attempt, history of panic disorder, presents with abdominal pain and request for alcohol detox. Patient says he is drinking 6-8 beers daily. Says he is having a lot of abdominal pain going to the back. Associated with nausea and vomiting. Because of significant pain says he came to the hospital. And he also wanted to stop drinking alcohol. Denies any fevers. Sometimes he has chest pain. Sometimes at night he gets short of breath. Lately since about 1 month he is having some difficulty swallowing for solid food that he has to swallow twice. Denies cough. No fevers. Has blurred vision going on for some time and following with ophthalmology. No headache. Normal bowel and bladder movements. Hemodynamics are okay. Abdominal pain Chronic pancreatitis Alcoholic gastritis -CT abdomen pelvis shows chronic pancreatitis. No evidence of acute pancrea titis -Possible nonspecific enteritis -progress to full diet -IV Protonix Alcoholism Alcohol Withdrawal -Thiamine and folic acid and multivitamin -withdrawal does seem to be severe -Alcohol withdrawal protocol with gabapentin and IV Ativan as needed -stop flexeril to minimize medications that alterate mentation -decrease dilaudid given altered mentation Chest pains -EKG and troponin okay -Will follow serial CE -CTA chest unremarkable Diabetes -Will hold Jardiance -Continue home Lantus -Sliding scale History of PE -On Eliquis GERD and Renae's esophagus -Placed on IV Protonix Dysphagia -Patient says having some difficulty swallowing solid food -consult for further recommendation History of major depression ADHD Generalized anxiety disorder Panic disorder Bipolar disorder -Continue home medications Feeding/fluids: regular Analgesia: scheduled tylenol, dilaudid Sedation: gabapentin, ativan (CIWA) Thromboprophylaxis: eliquis Head up position: na Ulcer prophylaxis: protonix Glycemic control: insulin Spontaneous breathing trial: na Bowel care: start miralax daily Indwelling catheter removal: na Deescalation of antibiotics: na I spent a total of 45 minutes in direct patient care, including [id number] time with the patient and/or family, reviewing medical records, ordering and reviewing diagnostic tests, and coordinating care with other healthcare providers. This time includes: history taking, physical examination, medical decision making, counseling, ECG interpretation, imaging interpretation, lab interpretation, orders, and education, excluding time spent in the performance of separately billed services. Admission and Anticipated Discharge Date Admission Date: October 04, 2024 Subjective Patient seen and examined at bedside. Mr. Zeng is doing ok today. He states that he is hallucinating a bit. He feels very anxious. He states his pancreatitis pain is slightly improved from yesterday. Review of Systems Review of Systems: CONSTITUTIONAL: Patient denies fevers, chills, sweats and weight changes. EYES: Patient denies any visual symptoms. EARS, NOSE, AND THROAT: No difficulties with hearing. No symptoms of rhinitis or sore throat. CARDIOVASCULAR: Patient denies chest pains, palpitations, orthopnea and paroxysmal nocturnal dyspnea. RESPIRATORY: No dyspnea on exertion, no wheezing or cough. GI: abdominal pain : No urinary hesitancy or dribbling. No nocturia or urinary frequency. No abnormal urethral discharge. MUSCULOSKELETAL: No myalgias or arthralgias. NEUROLOGIC: No chronic headaches, no seizures. Patient denies numbness, tingling or weakness. PSYCHIATRIC: some hallucinations ENDOCRINE: No excessive urination or excessive thirst. DERMATOLOGIC: Patient denies any rashes or skin changes. Physical Exam Physical Exam: Gen: A&O 3 NAD HEENT: NCAT, EOMI, not icteric. External ears normal. No rhinorrhea. Moist mucous membranes. Neck: Supple, full range of motion, no observable masses, No meningeal sign. Lungs: No Respiratory distress. CV: tachycardic, regular rhythm, no edema. Abdomen: Soft, nondistended, No rebound tenderness. MSK: No joint swelling, no redness. Skin: No rashes, petechiae, lesions. Normal color per patient. Neuro: Normal Gait, Grossly intact. Psych: Appropriate for situation. Results & Data Results & Data Vital Signs (Past 12 Hours) Vital Signs Temp Pulse Pulse Resp BP Pulse Ox O2 Del Method 10/05/24 11:21 36.3 C L 94 H 20 108/70 99 Room Air 10/05/24 07:52 36.7 C 100 H 20 109/69 98 Room Air 10/05/24 07:27 81 10/05/24 02:41 36.4 C L 102 H 18 119/72 99 Nasal Cannula O2 Flow Rate 10/05/24 11:21 10/05/24 07:52 10/05/24 07:27 10/05/24 02:41 2 Laboratory Results -personally reviewed, creatinine stable Medications Administered Apixaban (Apixaban 5 Mg Tablet) 5 mg PO BID [facility] Stop: 11/03/24 08:59 Last Admin: 10/05/24 08:22 Dose: 5 mg Documented By: [facility] Admin: 10/04/24 21:23 Dose: 5 mg Documented By: Admin: 10/04/24 08:27 Dose: Not Given Documented By: KACEYK Duloxetine HCl (Duloxetine Hcl 20 Mg Cap) 20 mg PO QAM [facility] Stop: 11/03/24 08:59 Last Admin: 10/05/24 08:21 Dose: 20 mg Documented By: [facility] Admin: 10/04/24 08:28 Dose: 20 mg Documented By: ZEESHAN Folic Acid (Folic Acid 1 Mg Tab) 1 mg PO QAM [facility] Stop: 11/03/24 08:59 Last Admin: 10/05/24 08:22 Dose: 1 mg Documented By: [facility] Admin: 10/04/24 08:27 Dose: 1 mg Documented By: ZEESHAN Gabapentin (Gabapentin 600 Mg Tab) 600 mg PO Q8H [facility] Stop: 10/05/24 15:31 Last Admin: 10/05/24 08:22 Dose: 600 mg Documented By: [facility] Admin: 10/04/24 23:03 Dose: 600 mg Documented By: SHERI Hydromorphone HCl (Hydromorphone Hcl 2 Mg Tab) 2 mg PO Q4 PRN PRN Reason: Pain Stop: 10/18/24 14:14 Last Admin: 10/05/24 12:41 Dose: 2 mg Documented By: [facility] Admin: 10/05/24 08:23 Dose: 2 mg Documented By: [facility] Admin: 10/05/24 02:12 Dose: 2 mg Documented By: Admin: 10/04/24 21:07 Dose: 2 mg Documented By: Admin: 10/04/24 15:58 Dose: 2 mg Documented By: MMTrip Pantoprazole Sodium (Protonix) 40 mg in 10 mls @ 5 mls/min IV DAILY [facility] Stop: 11/03/24 08:59 Last Admin: 10/05/24 11:35 Dose: 5 mls/min Documented By: [facility] Admin: 10/04/24 08:26 Dose: 5 mls/min Documented By: ZEESHAN Insulin Aspart (Insulin Aspart Per Unit Charge) 0 units SC ACHS [facility] Stop: 11/03/24 07:29 Last Admin: 10/05/24 12:42 Dose: Not Given Documented By: [facility] Admin: 10/05/24 11:34 Dose: Not Given Documented By: [facility] Admin: 10/04/24 21:22 Dose: Not Given Documented By: Admin: 10/04/24 17:47 Dose: Not Given Documented By: AEJackie Admin: 10/04/24 15:14 Dose: Not Given Documented By: Admin: 10/04/24 10:08 Dose: Not Given Documented By: KACEYK Insulin Glargine (Lantus Per Unit Charge) 18 units SQ HS [facility] Stop: 11/03/24 20:59 Last Admin: 10/04/24 21:38 Dose: 18 units Documented By: SHERI Co-signed By: CESAR Lorazepam (Lorazepam 2 Mg/1 Ml Vial) 1 mg IV UD PRN; Protocol PRN Reason: EtOH Withdrawal AWSS Score 6,7 Stop: 11/03/24 03:25 Last Admin: 10/05/24 13:11 Dose: 1 mg Documented By: [facility] Admin: 10/05/24 08:24 Dose: 1 mg Documented By: [facility] Admin: 10/05/24 03:35 Dose: 1 mg Documented By: Admin: 10/04/24 21:23 Dose: 1 mg Documented By: Admin: 10/04/24 09:59 Dose: 1 mg Documented By: ZEESHAN Multivitamins (Multivitamin Tab) 1 tab PO QAM [facility] Stop: 11/03/24 08:59 Last Admin: 10/05/24 08:27 Dose: Not Given Documented By: [facility] Admin: 10/04/24 08:27 Dose: Not Given Documented By: ZEESHAN Ondansetron HCl (Ondansetron Inj 2 Mg/Ml 2 Ml Vial) 4 mg IV Q6H PRN PRN Reason: Nausea Stop: 11/03/24 03:25 Last Admin: 10/05/24 12:47 Dose: 4 mg Documented By: [facility] Admin: 10/04/24 21:23 Dose: 4 mg Documented By: Admin: 10/04/24 10:05 Dose: 4 mg Documented By: Admin: 10/04/24 03:36 Dose: 4 mg Documented By: ELIF Paroxetine HCl (Paroxetine Hcl 20 Mg Tab) [facility] [place] [place] Stop: 11/03/24 08:59 Last Admin: 10/05/24 08:22 Dose: 30 mg Documented By: [facility] Admin: 10/04/24 08:28 Dose: 30 mg Documented By: ZEESHAN Thiamine HCl (Thiamine Hcl 100 Mg Tab) 100 mg PO [facility] Stop: 11/03/24 08:59 Last Admin: 10/05/24 08:22 Dose: 100 mg Documented By: [facility] Admin: 10/04/24 08:27 Dose: 100 mg Documented By: ZEESHAN (1) Abdominal pain Abdominal location: generalized Qualified Code(s): R10.84 - Generalized abdominal pain
[2024-10-05] MEDS: ACETAMINOPHEN 500 MG TAB PO SCH (17:35)
[2024-10-05] MEDS: HYDROmorphone HCL 2 MG TAB PO PRN (17:36)
[2024-10-05] MEDS: LANTUS PER UNIT CHARGE SQ SCH (20:47)
[2024-10-06] MEDS: GABAPENTIN 600 MG TAB PO SCH (02:24)
[2024-10-06 07:43] LABS: Mean Corpuscular Hemoglobin 33.4 pg (25.0-34.0); Mean Corpuscular Hgb Conc 34.1 g/dL (32.0-36.0); Mean Corpuscular Volume 97.9 fL (80.0-100.0); Mean Platelet Volume 9.5 fL (9.4-12.4); Platelet Count 106 K/uL (130-400); RDW Coefficient of Variation 11.5 % (11.5-14.5); RDW Standard Deviation 41.3 fL (36.4-46.3); Red Blood Count 4.19 M/uL (4.70-6.10); White Blood Count 4.28 K/ul (4.8-10.8)
[2024-10-06 07:56] LABS: BUN Creatinine Ratio 5.5 (10-20); Calcium 9.3 mg/dl (8.6-10.3); Creatinine Clr Calc Pharmacy 131.5 ml/min
[2024-10-06 08:01] VITALS: RESP 18
[2024-10-06] MEDS: POLYETHYLENE (MIRALAX) 17 GM PACK PO SCH (08:06)
--- NOTE | 2024-10-06 12:11 | Hospitalist Progress Note ---
Date of Service October 06, 2024 Assessment & Plan (1) Abdominal pain: Plan: 48-year-old male with past medical history significant for type 2 diabetes, alcohol induced chronic pancreatitis, history of pulmonary embolism, GERD, Renae's esophagus, sciatica, chronic pain syndrome, bipolar depression, general anxiety disorder, major depression, ADHD, history of suicide attempt, history of panic disorder, presents with abdominal pain and request for alcohol detox. Patient says he is drinking 6-8 beers daily. Says he is having a lot of abdominal pain going to the back. Associated with nausea and vomiting. Because of significant pain says he came to the hospital. And he also wanted to stop drinking alcohol. Denies any fevers. Sometimes he has chest pain. Sometimes at night he gets short of breath. Lately since about 1 month he is having some difficulty swallowing for solid food that he has to swallow twice. Denies cough. No fevers. Has blurred vision going on for some time and following with ophthalmology. No headache. Normal bowel and bladder movements. Hemodynamics are okay. Abdominal pain Chronic pancreatitis Alcoholic gastritis -CT abdomen pelvis shows chronic pancreatitis. No evidence of acute pancrea titis -Possible nonspecific enteritis -full diet -increase dilaudid to 2mg q3hrs prn for severe pain -stop IV protonix, switch to PO -give NS maintenance given low PO intake Alcoholism Alcohol Withdrawal -Thiamine and folic acid and multivitamin -withdrawal does seem to be severe -Alcohol withdrawal protocol with gabapentin and IV Ativan as needed -improved today Chest pains -EKG and troponin okay -Will follow serial CE -CTA chest unremarkable Diabetes -Continue home Lantus -Sliding scale History of PE -On Eliquis GERD and Renae's esophagus -Placed on IV Protonix Dysphagia -Patient says having some difficulty swallowing solid food -consult for further recommendation History of major depression ADHD Generalized anxiety disorder Panic disorder Bipolar disorder -Continue home medications Feeding/fluids: regular Analgesia: scheduled tylenol, dilaudid prn Sedation: gabapentin, ativan (CIWA) Thromboprophylaxis: eliquis Head up position: na Ulcer prophylaxis: protonix Glycemic control: insulin Spontaneous breathing trial: na Bowel care: start miralax daily Indwelling catheter removal: na Deescalation of antibiotics: na I spent a total of 45 minutes in direct patient care, including [id number] time with the patient and/or family, reviewing medical records, ordering and reviewing diagnostic tests, and coordinating care with other healthcare providers. This time includes: history taking, physical examination, medical decision making, counseling, ECG interpretation, imaging interpretation, lab interpretation, orders, and education, excluding time spent in the performance of separately billed services. Admission and Anticipated Discharge Date Admission Date: October 04, 2024 Subjective Patient seen and examined at bedside. Mentation much better today. Patient states he continues to feel like he is in pain. Feels withdrawal is improving. Eating well and able to keep everything down. Review of Systems Review of Systems: CONSTITUTIONAL: Patient denies fevers, chills, sweats and weight changes. EYES: Patient denies any visual symptoms. EARS, NOSE, AND THROAT: No difficulties with hearing. No symptoms of rhinitis or sore throat. CARDIOVASCULAR: Patient denies chest pains, palpitations, orthopnea and paroxysmal nocturnal dyspnea. RESPIRATORY: No dyspnea on exertion, no wheezing or cough. GI: abdominal pain : No urinary hesitancy or dribbling. No nocturia or urinary frequency. No abnormal urethral discharge. MUSCULOSKELETAL: No myalgias or arthralgias. NEUROLOGIC: No chronic headaches, no seizures. Patient denies numbness, tingling or weakness. ENDOCRINE: No excessive urination or excessive thirst. DERMATOLOGIC: Patient denies any rashes or skin changes. Physical Exam Physical Exam: Gen: A&O 3 NAD HEENT: NCAT, EOMI, not icteric. External ears normal. No rhinorrhea. Moist mucous membranes. Neck: Supple, full range of motion, no observable masses, No meningeal sign. Lungs: No Respiratory distress. CV: RRR Abdomen: Soft, nondistended, No rebound tenderness. MSK: No joint swelling, no redness. Skin: No rashes, petechiae, lesions. Normal color per patient. Neuro: Normal Gait, Grossly intact. Psych: Appropriate for situation. Results & Data Results & Data Vital Signs (Past 12 Hours) Vital Signs Temp Pulse Pulse Resp BP Pulse Ox O2 Del Method 10/06/24 11:58 36.6 C 79 18 109/73 100 Room Air 10/06/24 08:00 36.6 C 87 18 111/72 96 Room Air 10/06/24 07:06 88 10/06/24 02:38 36.9 C 101 H 16 116/74 98 Room Air Laboratory Results -personally reviewed, thrombocytopenia in setting of hepatic steatosis vs/ cirrhosis, Medications Administered Acetaminophen (Acetaminophen 500 Mg Tab) 500 mg PO Q6 [facility] Stop: 11/04/24 17:59 Last Admin: 10/06/24 05:48 Dose: 500 mg Documented By: Admin: 10/06/24 01:13 Dose: 500 mg Documented By: Admin: 10/05/24 17:35 Dose: 500 mg Documented By: ADRIAN Apixaban (Apixaban 5 Mg Tablet) 5 mg PO BID [facility] Stop: 11/03/24 08:59 Last Admin: 10/06/24 08:03 Dose: 5 mg Documented By: [facility] Admin: 10/05/24 20:41 Dose: Not Given Documented By: Admin: 10/05/24 08:22 Dose: 5 mg Documented By: [facility] Admin: 10/04/24 21:23 Dose: 5 mg Documented By: Admin: 10/04/24 08:27 Dose: Not Given Documented By: ZEESHAN Duloxetine HCl (Duloxetine Hcl 20 Mg Cap) 20 mg PO QAM [facility] Stop: 11/03/24 08:59 Last Admin: 10/06/24 08:03 Dose: 20 mg Documented By: [facility] Admin: 10/05/24 08:21 Dose: 20 mg Documented By: [facility] Admin: 10/04/24 08:28 Dose: 20 mg Documented By: ZEESHAN Folic Acid (Folic Acid 1 Mg Tab) 1 mg PO QAM [facility] Stop: 11/03/24 08:59 Last Admin: 10/06/24 08:04 Dose: 1 mg Documented By: [facility] Admin: 10/05/24 08:22 Dose: 1 mg Documented By: [facility] Admin: 10/04/24 08:27 Dose: 1 mg Documented By: ZEESHAN Gabapentin (Gabapentin 600 Mg Tab) 600 mg PO Q12H [facility] Stop: 10/06/24 15:31 Last Admin: 10/06/24 02:24 Dose: 600 mg Documented By: Pantoprazole Sodium (Protonix) 40 mg in 10 mls @ 5 mls/min IV DAILY [facility] Stop: 11/03/24 08:59 Last Admin: 10/06/24 08:04 Dose: 5 mls/min Documented By: [facility] Admin: 10/05/24 11:35 Dose: 5 mls/min Documented By: Admin: 10/04/24 08:26 Dose: 5 mls/min Documented By: ZEESHAN Insulin Aspart (Insulin Aspart Per Unit Charge) 0 units SC ACHS [facility] Stop: 11/03/24 07:29 Last Admin: 10/06/24 08:49 Dose: Not Given Documented By: [facility] Admin: 10/05/24 20:47 Dose: 1 units Documented By: SHERI Co-signed By: CHERYL Admin: 10/05/24 17:37 Dose: Not Given Documented By: [facility] Admin: 10/05/24 12:42 Dose: Not Given Documented By: [facility] Admin: 10/05/24 11:34 Dose: Not Given Documented By: [facility] Admin: 10/04/24 21:22 Dose: Not Given Documented By: Admin: 10/04/24 17:47 Dose: Not Given Documented By: AEJackie Admin: 10/04/24 15:14 Dose: Not Given Documented By: Admin: 10/04/24 10:08 Dose: Not Given Documented By: ZEESHAN Insulin Glargine (Lantus Per Unit Charge) 9 units SQ HS [facility] Stop: 11/04/24 20:59 Last Admin: 10/05/24 20:47 Dose: 9 units Documented By: SHERI Co-signed By: CHERYL Lorazepam (Lorazepam 2 Mg/1 Ml Vial) 1 mg IV UD PRN; Protocol PRN Reason: EtOH Withdrawal AWSS Score 6,7 Stop: 11/03/24 03:25 Last Admin: 10/05/24 13:11 Dose: 1 mg Documented By: [facility] Admin: 10/05/24 08:24 Dose: 1 mg Documented By: [facility] Admin: 10/05/24 03:35 Dose: 1 mg Documented By: Admin: 10/04/24 21:23 Dose: 1 mg Documented By: Admin: 10/04/24 09:59 Dose: 1 mg Documented By: ZEESHAN Multivitamins (Multivitamin Tab) 1 tab PO QAM [facility] Stop: 11/03/24 08:59 Last Admin: 10/06/24 08:15 Dose: Not Given Documented By: [facility] Admin: 10/05/24 08:27 Dose: Not Given Documented By: [facility] Admin: 10/04/24 08:27 Dose: Not Given Documented By: TNK Ondansetron HCl (Ondansetron Inj 2 Mg/Ml 2 Ml Vial) 4 mg IV Q6H PRN PRN Reason: Nausea Stop: 11/03/24 03:25 Last Admin: 10/06/24 10:46 Dose: 4 mg Documented By: [facility] Admin: 10/06/24 03:57 Dose: 4 mg Documented By: Admin: 10/05/24 20:53 Dose: 4 mg Documented By: Admin: 10/05/24 12:47 Dose: 4 mg Documented By: Admin: 10/04/24 21:23 Dose: 4 mg Documented By: Admin: 10/04/24 10:05 Dose: 4 mg Documented By: Admin: 10/04/24 03:36 Dose: 4 mg Documented By: ELIF Paroxetine HCl (Paroxetine Hcl 20 Mg Tab) 30 mg PO QAM [facility] Stop: 11/03/24 08:59 Last Admin: 10/06/24 08:03 Dose: 30 mg Documented By: [facility] Admin: 10/05/24 08:22 Dose: 30 mg Documented By: [facility] Admin: 10/04/24 08:28 Dose: 30 mg Documented By: ZEESHAN Polyethylene Glycol (Polyethylene (Miralax) 17 Gm Pack) 17 gm PO DAILY [facility] Stop: 11/05/24 08:59 Last Admin: 10/06/24 08:06 Dose: 17 gm Documented By: [facility] Thiamine HCl (Thiamine Hcl 100 Mg Tab) 100 mg PO QAM [facility] Stop: 11/03/24 08:59 Last Admin: 10/06/24 08:03 Dose: 100 mg Documented By: [facility] Admin: 10/05/24 08:22 Dose: 100 mg Documented By: [facility] Admin: 10/04/24 08:27 Dose: 100 mg Documented By: ZEESHAN (1) Abdominal pain Abdominal location: generalized Qualified Code(s): R10.84 - Generalized abdominal pain
[2024-10-06] MEDS: HYDROmorphone HCL 2 MG TAB PO PRN (12:59)
[2024-10-06] MEDS: LACTATED RINGER'S 1,000 ML IV SCH (13:00)
[2024-10-06] MEDS: PANTOprazole 40 MG TAB PO SCH (20:37)
[2024-10-07 03:19] VITALS: TEMP 97.7
[2024-10-07 06:01] LABS: Hematocrit (blood only) 41.6 % (42.0-52.0); Hemoglobin 14.5 g/dl (14.0-18.0); Mean Corpuscular Hemoglobin 34.1 pg (25.0-34.0); Mean Corpuscular Hgb Conc 34.9 g/dL (32.0-36.0); Mean Corpuscular Volume 97.9 fL (80.0-100.0); Mean Platelet Volume 9.4 fL (9.4-12.4); Platelet Count 114 K/uL (130-400); RDW Coefficient of Variation 11.4 % (11.5-14.5); RDW Standard Deviation 40.9 fL (36.4-46.3); Red Blood Count 4.25 M/uL (4.70-6.10)
[2024-10-07 06:18] LABS: BUN Creatinine Ratio 5.6 (10-20); Calcium 9.8 mg/dl (8.6-10.3); Creatinine Clr Calc Pharmacy 133.3 ml/min
[2024-10-07 07:17] VITALS: O2SAT 100
[2024-10-07 09:32] VITALS: BP 110/73; PULSE 70
--- NOTE | 2024-10-07 10:52 | Gastroenterology Progress Note ---
Date of Service October 07, 2024 Assessment & Plan (1) Chronic abdominal pain: Plan: 48 year old male with history of chronic pancreatitis, increased ETOH intake, Renae's/GERD, DM (on insulin), PE (not anticoagulated at present) chronic pain syndrome, bipolar depression, general anxiety disorder, major depression, ADHD, history of panic disorder admitted last week w/ abdominal pain and ETOH detox. CT w/ chronic pancreatitis changes (parenchymal calcifications, gland atrophy, duct dilatation) but no CT evidence of acute pancreatitis. This AM he is improved, wearing street clothes and awaiting discharge. Discussed the importance of remaining tobacco and alcohol free. It has been recommended to undergo EGD/EUS and colonoscopy with his established GI group through [facility] since 2019 but these studies have not yet been completed. In review of the R at [facility] he is scheduled for a colonoscopy w/ Dr. Mullen December 2024. It was encouraged he discuss with his care-team EGD/EUS as well. Recall GI as needed. I spent a total of 40 minutes on the date of service in review of patient's record, and previously obtained information in person and appropriate medical visit, discussion and education of plan, with patient and/or caregiver, placing orders for tests/referral/procedures as medically necessary and documentation of pertinent clinical information in patient's medical records for their visit today. Admission and Anticipated Discharge Date Admission Date: October 04, 2024 Subjective Pt was seen and evaluated, chart reviewed. Dressed, ready to be discharged. Tells me abd pain has improved. No nausea/vomiting EGD 2019: - Normal esophagus. - Mild gastritis. - Mild erythema in the duodenum. - No specimens collected. EUS 2009: EUS imaging consistent with mild chronic pancreatitis - Pronounced cholesterolosis of gallbladder - no biliary dilation or stones - probable gastroparesis. Review of Systems Review of Systems: All other findings negative except as noted in HPI. Physical Exam Constitutional: WD/WN, vitals as above Respiratory: normal respiratory effort Gastrointestinal (Abdomen): normal bowel sounds, soft, nontender, no hepatosplenomegaly Skin: no rashes, warm and dry Results & Data Results & Data Vital Signs (Past 12 Hours) Vital Signs Temp Pulse Pulse Pulse Resp BP BP 10/07/24 09:31 97.7 F 70 84 18 104/66 110/73 10/07/24 07:19 84 10/07/24 07:16 97.7 F 84 18 104/66 10/07/24 02:37 97.7 F 67 18 128/78 Pulse Ox O2 Del Method 10/07/24 09:31 100 10/07/24 07:19 10/07/24 07:16 100 Room Air 10/07/24 02:37 99 Room Air Laboratory Results 10/07/24 10/07/24 10/06/24 Range/Units 08:23 05:38 20:05 WBC 4.40 L (4.8-10.8) K/ul RBC 4.25 L (4.70-6.10) M/uL Hgb 14.5 (14.0-18.0) g/dl Hct 41.6 L (42.0-52.0) % MCV 97.9 (80.0-100.0) fL MCH 34.1 H (25.0-34.0) pg MCHC 34.9 (32.0-36.0) g/dL RDW Std Deviation 40.9 (36.4-46.3) fL RDW Coeff of Gucci 11.4 L (11.5-14.5) % Plt Count 114 L (130-400) K/uL MPV 9.4 (9.4-12.4) fL Sodium 134 L (136-145) mmol/L Potassium 4.0 (3.5-5.1) mmol/L Chloride 99 (98-107) mmol/L Carbon Dioxide 32 (21-32) mmol/L Anion Gap 3 (3-11) BUN 4 L (6-23) mg/dl Creatinine 0.72 (0.6-1.4) mg/dl Est Cr Clr Drug Dosing 133.3 ml/min eGFR 111.30 BUN/Creatinine Ratio 5.6 L (10-20) Glucose 222 H (70-99(Fasting)) mg/dl POC Glucose 253 H 173 H (70-99) mg/dl Calcium 9.8 (8.6-10.3) mg/dl 10/06/24 10/06/24 Range/Units 17:19 12:11 WBC (4.8-10.8) K/ul RBC (4.70-6.10) M/uL Hgb (14.0-18.0) g/dl Hct (42.0-52.0) % MCV (80.0-100.0) fL MCH (25.0-34.0) pg MCHC (32.0-36.0) g/dL RDW Std Deviation (36.4-46.3) fL RDW Coeff of Gucci (11.5-14.5) % Plt Count (130-400) K/uL MPV (9.4-12.4) fL Sodium (136-145) mmol/L Potassium (3.5-5.1) mmol/L Chloride (98-107) mmol/L Carbon Dioxide (21-32) mmol/L Anion Gap (3-11) BUN (6-23) mg/dl Creatinine (0.6-1.4) mg/dl Est Cr Clr Drug Dosing ml/min eGFR BUN/Creatinine Ratio (10-20) Glucose (70-99(Fasting)) mg/dl POC Glucose 185 H 156 H (70-99) mg/dl Calcium (8.6-10.3) mg/dl PG Care Time/CCT Total # of Minutes Spent Total Time Spent with Patient: Total time spent is greater than 50% in coordination of care (as documented) at patient's floor/unit and/or counseling patient: Coding Level of Care Code 84856 SUB INP/OBS CARE 2/35MIN Diagnoses Chronic abdominal pain R10.9; G89.29
[2024-10-07] MEDS ORDERED: GABAPENTIN 600 MG TAB PO SCH (15:30)
--- NOTE | 2024-10-07 16:08 | Discharge Summary ---
Discharge Summary Date of Service October 07, 2024 Principal Dx & Hospital Course #1 = Principal Diagnosis (1) Abdominal pain: 48-year-old male with past medical history significant for type 2 diabetes, alcohol induced chronic pancreatitis, history of pulmonary embolism, GERD, Renae's esophagus, sciatica, chronic pain syndrome, bipolar depression, general anxiety disorder, major depression, ADHD, history of suicide attempt, history of panic disorder, presents with abdominal pain and request for alcohol detox. Patient says he is drinking 6-8 beers daily. Says he is having a lot of abdominal pain going to the back. Associated with nausea and vomiting. Because of significant pain says he came to the hospital. And he also wanted to stop drinking alcohol. Denies any fevers. Sometimes he has chest pain. Sometimes at night he gets short of breath. Lately since about 1 month he is having some difficulty swallowing for solid food that he has to swallow twice. Denies cough. No fevers. Has blurred vision going on for some time and following with ophthalmology. No headache. Normal bowel and bladder movements. Hemodynamics are okay. Abdominal pain Chronic pancreatitis Alcoholic gastritis -CT abdomen pelvis shows chronic pancreatitis. No evidence of acute pancreatitis -Possible nonspecific enteritis -full diet -f/u with GI outpatient Alcoholism Alcohol Withdrawal -Thiamine and folic acid and multivitamin -improved today Chest pains -EKG and troponin okay -Will follow serial CE -CTA chest unremarkable Diabetes -Continue home Lantus -Sliding scale History of PE -On Eliquis GERD and Renae's esophagus -Placed on IV Protonix Dysphagia -Patient says having some difficulty swallowing solid food -consult for further recommendation History of major depression ADHD Generalized anxiety disorder Panic disorder Bipolar disorder -Continue home medications Notes For Next Care Provider 48-year-old male with past medical history significant for type 2 diabetes, alcohol induced chronic pancreatitis, history of pulmonary embolism, GERD, Renae's esophagus, sciatica, chronic pain syndrome, bipolar depression, general anxiety disorder, major depression, ADHD, history of suicide attempt, history of panic disorder, presents with abdominal pain and request for alcohol detox. ADmitted to medicine for pain management and withdrawal. On medicine, started on gabapentin taper and ativan for elevated CIWA. Dilaudid given for acute pancreatitis. Withdrawal symptoms improved over a few days and pancreatitis improved with pain management. On 10/07/2024 patient medically ready for discharge home. Needs f/u with GI, PCP. Recommended EGD and colonoscopy as well since 2019. Medication Changes From Visit -dilaudid, gabapentin, folic acid Admission HPI Per Admitting Provider 48-year-old male with past medical history significant for type 2 diabetes, alcohol induced chronic pancreatitis, history of pulmonary embolism, GERD, Renae's esophagus, sciatica, chronic pain syndrome, bipolar depression, general anxiety disorder, major depression, ADHD, history of suicide attempt, history of panic disorder, presents with abdominal pain and request for alcohol detox. Patient says he is drinking 6-8 beers daily. Says he is having a lot of abdominal pain going to the back. Associated with nausea and vomiting. Because of significant pain says he came to the hospital. And he also wanted to stop drinking alcohol. Denies any fevers. Sometimes he has chest pain. Sometimes at night he gets short of breath. Lately since about 1 month he is having some difficulty swallowing for solid food that he has to swallow twice. Denies cough. No fevers. Has blurred vision going on for some time and following with ophthalmology. No headache. Normal bowel and bladder movements. Hemodynamics are okay. Past medical history. As mentioned above Past surgical history. EGD. EGD with biopsy. EGD with endoscopic ultrasound. Laparoscopic cholecystectomy. A port removed from left chest wall. Appendectomy. Social history. She is tobacco. Alcohol 6-8 beers daily. No drug use. Family history. Aunt had manic depression. Father had alcoholism. Depression. Discharge Exam Gen: A&O 3 NAD HEENT: NCAT, EOMI, not icteric. External ears normal. No rhinorrhea. Moist mucous membranes. Neck: Supple, full range of motion, no observable masses, No meningeal sign. Lungs: No Respiratory distress. CV: RRR Abdomen: Soft, nondistended, No rebound tenderness. MSK: No joint swelling, no redness. Skin: No rashes, petechiae, lesions. Normal color per patient. Neuro: Normal Gait, Grossly intact. Psych: Appropriate for situation. Updated Medication List Medication Instructions Recorded Confirmed Type pantoprazole 40 mg tablet,delayed 40 mg PO DAILYBB 01/03/23 10/04/24 History release apixaban 5 mg tablet (Eliquis) 5 mg PO BID 06/23/23 10/04/24 History folic acid 1 mg tablet 1 mg PO QAM #30 tabs 08/17/23 10/04/24 Rx ondansetron 4 mg disintegrating 4 mg PO BID PRN nausea and 08/17/23 10/04/24 Rx tablet vomiting #20 tabs thiamine HCl (vitamin B1) 100 mg 100 mg PO QAM #30 tabs 08/17/23 10/04/24 Rx tablet albuterol sulfate 90 mcg/actuation 2 puff inhalation Q6 PRN Shortness 02/01/24 10/04/24 History aerosol inhaler Of Breath cyclobenzaprine 10 mg tablet 10 mg PO BID PRN Muscle Spasm 02/01/24 10/04/24 History duloxetine 20 mg capsule,delayed 20 mg PO QAM 02/01/24 10/04/24 History release empagliflozin 10 mg tablet 10 mg PO DAILY 02/01/24 10/04/24 History (Jardiance) insulin glargine 100 unit/mL 18 unit subcut HS 02/01/24 10/04/24 History subcutaneous solution (Lantus U-100 Insulin) paroxetine HCl 30 mg tablet 30 mg PO QAM 06/04/24 10/04/24 History gabapentin 600 mg tablet 300 mg (1/2 x 600 mg) PO TID 7 10/07/24 Rx days #11 tabs hydromorphone 2 mg tablet 2 mg PO Q6 PRN pain #14 tabs 10/07/24 Rx (Dilaudid) multivitamin with folic acid 400 1 tab PO QAM #30 tabs 10/07/24 Rx mcg tablet (Daily-Chriss (with folic acid)) Hospital Stay Data Consultations 10/04/24 01:05 ED Decision to Admit Stat 10/04/24 08:00 Consult Gastroenterology Routine Diagnostic Imagining Performed 10/03/24 22:03 CT abd pelvis IV con only Stat CT angio chest PE protocol Stat Pending Results Patient Have Any Pending Studies at Discharge: No Discharge Instructions Given to Patient (Per Discharging Provider) 1. Please gradually increase your diet, eating soft foods for now then build up. 2. Please stop drinking alcohol and get assistance. 3. Follow up with GI and PCP. Total Time Total Time Spent Total Time Spent (In Minutes): I spent a total of 35 minutes in direct patient care, including [id number] time with the patient and/or family, reviewing medical records, ordering and reviewing diagnostic tests, and coordinating care with other healthcare providers. This time includes: history taking, physical examination, medical decision making, counseling, ECG interpretation, imaging interpretation, lab interpretation, orders, and education, excluding time spent in the performance of separately billed services.
[2024-10-08 07:56] LABS: Codeine Urine NEGATIVE ng/mL (<50); Hydrocodone Urine NEGATIVE ng/mL (<50); Hydromor Urine NEGATIVE ng/mL (<50); Morphine Urine NEGATIVE ng/mL (<50); Norhydrocodone Conf Ur NEGATIVE ng/mL (<50); Noroxycodone Urine NEGATIVE ng/mL (<50); Oxycodone Urine NEGATIVE ng/mL (<50); Oxymorph Urine NEGATIVE ng/mL (<50)
== END 2024-10-07 10:30 | disposition home or self-care (01) | DRG 439 ==
LOC: ED 19:27 → EDINP 10-04 02:28 → 2W 10-04 16:54

== ENCOUNTER 2024-11-10 21:15 | Inpatient (IN) ==
--- OUTSIDE RECORDS SUMMARY | 2024-11-10 21:19 | External Medical Summary | Summary of Care ---
Author Name Unknown Organization [facility] Address [address] [place] [address] Phone [phone] Care Team Providers Care Digital Engineer Name Role Phone Dhiraj Myers DO Primary Care Provider [phone] Reason for Visit * Reason Onset Date Comments No Show 10/15/2024 [facility] No Show Auto mation Encounter Details Date Type Department Care Team (Late st Contact Info) Description 10/15/2024 Telephone Family Practice [facility] [place] [address] [facility] [place] [address] [facility]adav [facility] [address] [facility] [id number] No Show ([place] No Show Automation) Allergies No known active allergiesdocumented as of this encounter (statuses as of 10/15/2024) Medications Pantoprazole Sodium 40 MG Oral Tablet [...] PM EST 09/07/19 24 Active Dexcom G6 Diamond Mounter Device Use as directed. Use for blood [...] 1:49 PM EDT 03/05/20 24 Active Creon 57700-[address]389 UNIT Oral Capsule Delayed Release Particles (Pancrelipase ([id number]-[id number])) Take 1 Capsule by mouth in the [...] Tablet at bedtime. 12/19/19 23 Active Pen Sharon 32G X 4 MM Use as directed. 100 Each 5 4 12:28 PM EST 06/05/20 24 Active diazePAM 5 MG Oral Tablet (Valium) Take 1 Tablet by mouth as needed for Other (due to claustrophobia prior to MRI, ok to repeat once as needed). 2 Tablet 4 12:28 PM EST 06/05/20 24 Active Gabapentin 600 MG Oral Tablet (Neurontin) take 1/2 tablet by mouth three times a day for 7 days 11 Tablet 5 12:19 PM EST 10/08/19 25 Active HYDROmorphone HCl 2 MG Oral Tablet (Dilaudid) take 1 tablet by mouth every six hours As Needed for pain 14 Tablet 5 12:19 PM EST 10/08/19 25 Active Multiple Vitamins Oral Tablet take 1 tablet by mouth daily in the morning 30 Tablet 10/08/19 25 Active documented as of this encounter (statuses as of 10/15/2024) Active Problems Problem Noted Date Diagnosed Date [...] QAM, 600mg QPM, librium taper. [facility]erred to [facility]. Refused rehab. Grandmother cancer around -was close. Father committed suicide by gunshot 5mo later, patient found body ICD-10 update of inactive term Insomnia documented as of this encounter (statuses as of 10/15/2024) Resolved Problems Problem Noted Date Diagnosed Date [...] as of this encounter (statuses as of 10/15/2024) Immunizations Name Administration Dates Next Due Pneumococcal [...] 18 years and over) Not on file 3 Are you (or your family) kushal eless [...] Telephone Encounter - [place], No Show - 10/15/2024 6:13 AM EDT Dear Raffi Zeng, Looks like you missed an appointment with AMANDA YADAV on 10/11/2024 at 09:00 AM. If you haven't already rescheduled, you have a couple of options: Reschedule in [email or web address] Call us at [phone] Can't make a future appointment? Cancel and let someone else have your spot! It's easy to do via [employer] or by calling us. Thanks for trusting [facility] with your care. We hope to see you back in our office soon. Sincerely, AMANDA YADAV documented in this encounter Plan of Treatment Upcoming Encounters Date Type Department Care Team (Latest Contact Info) Description 01/01/2025 11:45 AM EDT Hospital Encounter ENDO [facility], Endoscopy Room [facility] [address] [facility] [place] [phone] Homero Mullen MD [address] [place] [address] 01/01/2025 11:45 AM EDT - 01/01/2025 12:15 PM EDT Surgery ENDO [facility], Endoscopy Room [facility] [address] [place] [phone] Homero Mullen MD [address] [place] [address] COLONOSCOPY FLEXIBLE PROXIMAL DIAGNOSTIC Scheduled Procedures Name [...] Name Relationship Healthcare Agent Relationshi p Communication [facility] Repr esentative (appointed verbally by patient or by statute hierarchy) Care Teams Digital Engineer Relationship Specialty Start Date End Date Dhiraj Myers DO [address] [place] [address] PCP - General Family Medicine 01/24/17 documented as of this encounter
--- NOTE | 2024-11-10 21:27 | Emergency Department Note ---
Impression & Plan Intractable abdominal pain, Alcohol withdrawal, Chronic pancreatitis, SOB (shortness of breath) ED Provider Note CHIEF COMPLAINT: Abdominal pain HISTORY OF PRESENTING ILLNESS: This 49-year-old male patient presents to the emergency department for evaluation of abdominal pain. The patient states the pain is around his bellybutton and radiates to his back. Occasional chest pain and occasional dizziness that only lasts for 2 to 3 seconds per patient. Symptoms have been intermittent for the past couple days, but became worse yesterday. The patient continues with trouble swallowing. He has a history of chronic alcohol induced pancreatitis, GERD, Renae's esophagus, chronic pain syndrome, bipolar depression, general anxiety disorder, ADHD, type 2 diabetes, alcohol use disorder, and PE. He is still drinking 8 beers a day. He last drank alcohol 4 hours ago. No history of withdrawal seizures, but does shake and gets tachycardia from his withdrawal symptoms. He has been through rehab 7 times without success. He is not ready to fully quit at this time. The patient was last admitted to the hospital on 10/03/2024 for abdominal pain with CT scan that showed chronic pancreatitis, but no acute findings, stable alcoholic gastritis and stable dysphagia. The patient was advised to follow-up with GI as an outpatient for EGD and colonoscopy. However, he never followed up with GI. He is still able to swallow, food just gets hung up in his upper esophagus. He is taking Protonix 40 mg QD. He states that he has been off Eliquis for about 8 months. He states that he is only taking Protonix, Paxil, and Jardiance currently. REVIEW OF SYSTEMS: See HPI for pertinent positives and pertinent negatives. ALLERGIES: NKDA MEDICATIONS: Protonix 40 mg QD, Paxil 30 mg QD, and Jardiance 10 mg QD PAST MEDICAL HISTORY: See below PHYSICAL EXAM: VITALS: Vitals are noted on the nurse's note and reviewed by myself. GENERAL: The patient does not appear overly intoxicated at this time. The patient currently has minimal to no signs of withdrawal. Non toxic, in no acute distress, non-diaphoretic. SKIN: Capillary refill <2 sec. EYES: PERRLA. EOMI. Conjunctivae without injection, sclerae without icterus. NOSE: Patent without discharge. MOUTH: Mucous membranes moist. Uvula midline. Airway patent. NECK: Supple without nuchal rigidity. HEART: Regular rate and rhythm without murmurs gallops or rubs. LUNGS: Clear to auscultation bilaterally without wheezes, rales or rhonchi. No retractions or accessory muscle use. ABDOMEN: Positive bowel sounds x 4. Normal tympanic percussion. Soft, diffusely tender to palpation. No masses or hepatosplenomegaly. Estrella sign negative. No CVA tenderness. No guarding, rigidity, or rebound tenderness. No focal RLQ or LLQ tenderness. MUSCULOSKELETAL: No gross musculoskeletal defects. Bilateral lower extremities are nontender to palpation. No erythema, edema, warmth, or cording of the bilateral lower extremities. Peripheral pulses 2+ and equal in the bilateral lower extremities. NEURO: Patient was alert and oriented. No focal neurological deficits. DIFFERENTIAL DIAGNOSIS: Differential diagnosis includes hepatitis, pancreatitis, cholecystitis, cholelithiasis, appendicitis, kidney stone, pyelonephritis, UTI, gastritis, gastroenteritis, mesenteric adenitis, obstruction, constipation, hernia, abdominal abscess, perforation, diverticulitis, IBD, ischemic colitis, abdominal aortic aneurysm, testicular torsion, prostatitis, or others. ED COURSE AND MEDICAL DECISION MAKING: MEDICATIONS GIVEN: 2 L normal saline solution bolus. Protonix 40 mg IV. Pepcid 20 mg IV. Thiamine 100 mg IV. Folic acid 1 mg IV. Ativan 1 mg IV. Dilaudid 0.5 mg IV x 2. Zofran 4 mg IV. Oral multivitamin was ordered, but administration was held due to his vomiting. MONITOR: Continuous environmental monitoring technician: Order was placed for continuous environmental monitoring technician. Patient was placed on the environmental monitoring technician and continuous pulse ox. Patient was noted to be in normal sinus rhythm at an initial rate of 94 bpm per my interpretation. EKG: EKG was interpreted by myself as normal sinus rhythm at 90 bpm with no acute ST or T wave changes. INTERPRETATION OF LABS: I interpreted the labs with full lab results as below in the lab section of this note. Laboratory results pertinent to the emergent complaint are discussed in the MDM section below. The patient was advised to follow up with their PCP and/or specialist(s) for further outpatient monitoring and management of any abnormal results. INTERPRETATION OF IMAGING: Imaging studies were interpreted by myself and read by radiology as per the imaging section of this note. The patient was advised to follow up with their PCP and/or specialist(s) for further outpatient management of any non-emergent abnormal findings. CTA of the chest with IV contrast showed no evidence of PE, pneumonia, or other acute cardiopulmonary etiology. CT scan of the abdomen pelvis with IV contrast showed stable changes of chronic pancreatitis without any acute abnormalities. Fluid-filled loops of small bowel which could represent enteritis, but is similar to prior CT scan. No other acute intra-abdominal or intrapelvic etiology. EXTERNAL RECORDS REVIEWED: I reviewed the patient's last admission as summarized above. CHRONIC MEDICAL/SOCIAL CONDITIONS AFFECTING CARE: Continued alcohol use with history of chronic pancreatitis. CONSULTATIONS: On-call hospitalist MDM SUMMARY: I examined the patient. The patient has a history of continued alcohol use with history of chronic alcohol induced pancreatitis and alcoholic gastritis. The patient states that he is having abdominal pain again similar to previous episodes of pancreatitis. The patient was also having increased reflux symptoms and continued dysphagia. The patient did not follow-up with GI as an outpatient for EGD and colonoscopy as directed after his previous admission. The patient has been taking his Protonix 40 mg once a day. He is also taking Jardiance and Paxil, but no longer on any other medications. The patient has also been having some intermittent chest pain and dizziness. He does have history of PE in the past and is no longer on Eliquis. He feels like the chest pain and dizziness may be coming from his reflux symptoms. An IV lock was placed and labs were drawn. The patient was medicated as above. Nursing staff notified me that the patient had an episode of vomiting that appeared to look like coffee-ground emesis. The patient's D-dimer was also elevated with a history of PE no longer on Eliquis. Therefore, CTA of the chest as well as CT of the abdomen and pelvis with IV contrast were obtained. However, later, it was noted that the patient had snuck in a can of snuff that he was using during his ER visit and the juices from the snuff and/or the snuff itself may have caused the previous episode of vomit to look like coffee grounds. White blood cell count normal at 6.37. Hemoglobin normal at 15.3. Platelet count normal at 170. Coags were normal. Sodium low at 132, chloride 95, glucose 141, AST 83, and alk phos 138. CMP otherwise normal. Lipase normal at 8. High-sensitivity troponin normal. Magnesium normal. Medical alcohol level elevated at 226.5. CTA of the chest with IV contrast showed no evidence of PE, pneumonia, or other acute cardiopulmonary etiology. CT scan of the abdomen pelvis with IV contrast showed stable changes of chronic pancreatitis without any acute abnormalities. Fluid-filled loops of small bowel which could represent enteritis, but is similar to prior CT scan. No other acute intra-abdominal or intrapelvic etiology. The patient has a complicated history as discussed above and states that he does not feel comfortable going home at this time and request admission to help prevent withdrawal symptoms as well as to control his pain. I spoke with the on-call hospitalist who agreed to admit the patient for further evaluation and treatment. Please refer to their dictation for further details. The patient's care was transferred in stable condition. DIAGNOSIS: Abdominal pain Shortness of breath Alcohol withdrawal History of chronic pancreatitis Past Med/Surg History Problem List (Updated 11/11/24 @ 06:39 by Clau Chu PA-C) SOB (shortness of breath) (Acute) Dysphagia Chest pain (Acute) Influenza A (Acute) Chronic abdominal pain (Acute) Alcoholic gastritis (Acute) Nausea (Acute) History of alcohol abuse (Acute) Abdominal pain (Acute) Influenza A (Acute) Lower abdominal pain Bright red blood per rectum (Acute) Alcohol abuse (Acute) Acute GI bleeding (Acute) Rectal bleed Alcohol use disorder (Acute) Chronic pancreatitis (Acute) Intussusception (Acute) Abdominal pain Substance or medication-induced depressive disorder Alcohol use disorder, severe, dependence Epigastric abdominal pain (Acute) Gastritis (Acute) Alcohol dependence (Acute) SBO (small bowel obstruction) (Acute) Fall (Acute) DKA (diabetic ketoacidosis) (Acute) Acute on chronic pancreatitis (Acute) Alcohol abuse (Acute) Hyperglycemia due to type 2 diabetes mellitus (Acute) Hyperglycemic crisis in diabetes mellitus Alcohol abuse (Acute) Acute hyperglycemia (Acute) History of acute pancreatitis (Acute) Alcohol withdrawal (Acute) Acute hyperglycemia (Acute) Acute epigastric pain (Acute) Hyponatremia Pancreatitis (Acute) COVID-19 (Acute) Chronic pancreatitis (Acute) Acute alcoholic pancreatitis (Acute) Acute hyperglycemia (Acute) Elevated LFTs (Acute) Recurrent pancreatitis (Acute) Alcohol withdrawal DVT prophylaxis Tobacco use Alcohol intoxication (Acute) Dehydration (Acute) Acute alcoholic pancreatitis Alcohol abuse (Acute) Alcohol abuse (Acute) Hypotension (Acute) Alcohol abuse (Acute) Acute hyperglycemia (Acute) Vomiting (Acute) Epigastric abdominal pain (Acute) Acute alcoholic pancreatitis (Acute) Acute hyperglycemia (Acute) Acidosis, lactic (Acute) Acute pancreatitis (Acute) Acute hyperglycemia (Acute) Acute bilateral upper abdominal pain (Acute) Alcohol withdrawal Pancreatitis (Acute) Lactic acidosis (Acute) Intractable abdominal pain (Acute) Encounter for pre-operative examination Pancreatitis (Acute) Alcohol abuse (Acute) Encounter for tobacco use cessation counseling (Acute) Encounter for alcohol abuse counseling and surveillance (Acute) Acute hyperglycemia (Acute) DM type 2 (diabetes mellitus, type 2) (Chronic) Renae's esophagus (Chronic Unknown) "per EGD 11/23/09 " On 05/31/11 09:06 Martinez Jose wrote "per EGD 11/23/09 " H/O acute pancreatitis (Chronic) "recurrent" Alcohol abuse (Chronic Unknown) History of substance abuse (Chronic) Depression (Chronic) Panic disorder (Chronic) Lumbar degenerative disc disease (Chronic) Suicidal ideation (Chronic) Mood disorder (Chronic) Mood disorder (Chronic) Depression (Chronic) H/O esophagogastroduodenoscopy (Chronic) "EGD 11/23/2009- mild gastritis, suspicious for gastroparesis, Z-line irregular EUS 02/04/2010- mild chronic pancreatitis, pronounced cholesterolosis of gallbladder, no biliary dilation or stones, probable gastroparesis EGD 10/31/2014- gastritis" Abdominal pain Chest pain (Acute) Hyperglycemia (Acute) Neuropathy (Acute) Medical History Abdominal pain Pancreatic duct stones Abdominal pain, acute, epigastric Retrosternal chest pain History of pulmonary embolism Alcohol withdrawal Alcoholic ketosis COVID-19 Nausea & vomiting Alcohol abuse Abdominal pain Surgical History S/P lumbar fusion L4-S1 2014 Family History Father Alcohol abuse Social History Smoking Status: Former smoker Tobacco Type: Smokeless Tobacco (Dip or Chew) Second Hand Exposure: No; Do You Dip or Chew Tobacco: Yes; Tobacco Cessation Education Requested by Patient: No Hx Alcohol Use: Yes Alcohol type: beer Hx Substance Use: No Preferred Language: Estonian Communication Ability: Effective Assembler Molded Frames Required: No Beliefs That Will Affect Care: None marital status: Current Living Situation: Parent Current Living Situation Comment: mobile home with mother How many Children do You have: 3 Feels Safe at Home: Yes Safety Concerns: Feels Safe At This Time Assistive Devices: Glasses Allergies Allergies Allergy/AdvReac Type Severity Reaction Status Date / Time No Known Allergies Allergy Verified 08/14/23 21:23 Home Meds Home Medications Medication Instructions Recorded Confirmed pantoprazole 40 mg tablet,delayed 40 mg PO DAILYBB 01/03/23 11/11/24 release albuterol sulfate 90 mcg/actuation 2 puff inhalation Q6 PRN Shortness 02/01/24 11/11/24 aerosol inhaler Of Breath cyclobenzaprine 10 mg tablet 10 mg PO BID PRN Muscle Spasm 02/01/24 11/11/24 duloxetine 20 mg capsule,delayed 20 mg PO QAM PRN Pain 02/01/24 11/11/24 release empagliflozin 10 mg tablet 10 mg PO QAM 02/01/24 11/11/24 (Jardiance) insulin glargine 100 unit/mL 10 unit subcut HS 02/01/24 11/11/24 subcutaneous solution (Lantus U-100 Insulin) paroxetine HCl 30 mg tablet 30 mg PO QAM 06/04/24 11/11/24 Previous Rx's Medication Instructions Recorded ondansetron 4 mg disintegrating 4 mg PO BID PRN nausea and 08/17/23 tablet vomiting #20 tabs hydromorphone 2 mg tablet 2 mg PO Q6 PRN pain #14 tabs 10/07/24 (Dilaudid) Results & Data (ED) Vital Signs Vital Signs - 24 hr 11/10/24 21:18 11/10/24 22:11 11/10/24 23:00 Temperature 36.8 C Temperature Source Temporal Artery Scan Pulse Rate 107 H 106 H Pulse Rate [Apical] 103 H Pulse Rhythm Regular Pulse Strength Normal Respiratory Rate 18 14 Respiratory Effort / Characteristics Non-Labored Spontaneous Non-Labored Spontaneous Respiratory Depth Normal Normal Respiratory Pattern Regular Regular Blood Pressure 145/93 H Blood Pressure [Left Arm] 105/77 Blood Pressure Mean 110 Blood Pressure Mean [Left Arm] 86 Blood Pressure Position Sitting Pulse Oximetry 99 96 Oxygen Delivery Method Room Air Room Air Sepsis Recent Fever Within 48 Hours No Sepsis New/Unexplained Change in Mental Status N/A Sepsis Action Taken by Nursing No Action Required 11/11/24 01:00 11/11/24 02:04 Temperature Temperature Source Pulse Rate 92 H Pulse Rate [Apical] 98 H Pulse Rhythm Pulse Strength Respiratory Rate 13 Respiratory Effort / Characteristics Non-Labored Spontaneous Respiratory Depth Normal Respiratory Pattern Blood Pressure Blood Pressure [Left Arm] 115/76 Blood Pressure Mean Blood Pressure Mean [Left Arm] 89 Blood Pressure Position Pulse Oximetry 98 Oxygen Delivery Method Room Air Sepsis Recent Fever Within 48 Hours Sepsis New/Unexplained Change in Mental Status Sepsis Action Taken by Nursing Laboratory Data 11/11/24 03:02 11/11/24 03:02 Lab Results 11/10/24 11/10/24 11/10/24 Range/Units 21:37 21:47 23:35 WBC 6.37 (4.8-10.8) K/ul RBC 4.46 L (4.70-6.10) M/uL Hgb 15.3 (14.0-18.0) g/dl Hct 43.0 (42.0-52.0) % MCV 96.4 (80.0-100.0) fL MCH 34.3 H (25.0-34.0) pg MCHC 35.6 (32.0-36.0) g/dL RDW Std Deviation 39.6 (36.4-46.3) fL RDW Coeff of Gucci 11.1 L (11.5-14.5) % Plt Count 170 (130-400) K/uL MPV 9.2 L (9.4-12.4) fL Immature Gran % (Auto) 0.2 % Neut % (Auto) 70.2 % Lymph % (Auto) 19.0 % [place] % (Auto) 8.0 % Eos % (Auto) 1.7 % Baso % (Auto) 0.9 % Neut # (Auto) 4.47 (1.40-6.50) K/uL Lymph # (Auto) 1.21 (1.20-3.40) K/uL [place] # (Auto) 0.51 (0.11-0.59) K/uL Eos # (Auto) 0.11 (0.00-0.50) K/uL Baso # (Auto) 0.06 (0.00-0.20) K/uL Immature Gran # (Auto) 0.01 (0.01-0.20) K/uL PT 10.9 (9.0-12.0) Seconds INR 1.0 (0.9-1.1) APTT 26 (21-31) Seconds PTT Ratio 1.0 D-Dimer 760 H* (0-500) ug/L FEU Sodium 132 L (136-145) mmol/L Potassium 4.0 (3.5-5.1) mmol/L Chloride 95 L (98-107) mmol/L Carbon Dioxide 28 (21-32) mmol/L Anion Gap 9 (3-11) BUN 6 (6-23) mg/dl Creatinine 0.83 (0.6-1.4) mg/dl Est Cr Clr Drug Dosing 116.0 ml/min eGFR 105.96 BUN/Creatinine Ratio 7.2 L (10-20) Glucose 141 H (70-99(Fasting)) mg/dl Osmolality 335 H (280-300) mOsm/kg Calcium 9.8 (8.6-10.3) mg/dl Magnesium 1.9 (1.7-2.4) mg/dl Total Bilirubin 1.0 (0.2-1.0) mg/dl AST 83 H (13-39) U/L ALT 43 (7-52) U/L Alkaline Phosphatase 138 H (34-104) U/L Troponin I High Sens 2.9 (0-20) pg/ml Total Protein 7.4 (6.0-8.3) gm/dl Albumin 4.3 (3.4-5.0) gm/dl Globulin 3.1 (2.5-4.0) gm/dl Albumin/Globulin Ratio 1.4 (0.9-2) Lipase 8 L (11-82) U/L Urine Color Yellow Urine Appearance Clear (Clear) Urine pH 5.5 (4.5-7.5) Ur Specific [place] 1.016 (1.000-1.030) Urine Protein Negative (Negative) Urine Glucose (UA) 3+ H (Negative) Urine Ketones Negative (Negative) Urine Blood Negative (Negative) Urine Nitrite Negative (Negative) Urine Bilirubin Negative (Negative) Urine Urobilinogen Negative (Negative) Ur Leukocyte Esterase Negative (Negative) Urine Osmolality 191 L (500-800) mOsm/kg Ur Random Sodium 16 mmol/L Ethyl Alcohol mg/dL 226.5 H (<10.0) mg/dl Administered Medications Hydromorphone HCl (Hydromorphone Hcl 2 Mg Tab) 2 mg PO Q6 PRN PRN Reason: pain Stop: 11/25/24 01:54 Last Admin: 11/11/24 02:10 Dose: 2 mg Documented By: RASTA Promethazine HCl (Phenergan) 6.25 mg in 50.25 mls @ 201 mls/hr IV Q6H PRN PRN Reason: Nausea And Vomiting Stop: 12/11/24 02:45 Last Infusion: 11/11/24 04:08 Dose: Infused Documented By: Admin: 11/11/24 03:48 Dose: 201 mls/hr Documented By: BRENDAN Dextrose (D5w) 500 mls @ 50 mls/hr IV .Q10H STA Stop: 11/11/24 13:37 Last Admin: 11/11/24 05:14 Dose: 50 mls/hr Documented By: ADA Insulin Aspart (Insulin Aspart Per Unit Charge) 0 units SC Q6 RAMOS Stop: 12/11/24 04:59 Last Admin: 11/11/24 05:14 Dose: Not Given Documented By: ADA Discontinued Medications Gabapentin (Gabapentin 600 Mg Tab) 1,200 mg PO NOW STA Stop: 11/11/24 02:45 Last Admin: 11/11/24 03:02 Dose: 1,200 mg Documented By: BRODERICK Hydromorphone HCl (Hydromorphone Inj 0.5 Mg/0.5 Ml Syr) 0.5 mg IV NOW STA Stop: 11/10/24 21:45 Last Admin: 11/10/24 21:59 Dose: 0.5 mg Documented By: BRODERICK Hydromorphone HCl (Hydromorphone Inj 0.5 Mg/0.5 Ml Syr) 0.5 mg IV NOW STA Stop: 11/10/24 23:38 Last Admin: 11/10/24 23:42 Dose: 0.5 mg Documented By: BRODERICK Sodium Chloride (Nss) 1,000 mls @ 999 mls/hr IV .Q1H1M ONE Stop: 11/10/24 22:41 Last Infusion: 11/10/24 23:28 Dose: Infused Documented By: Admin: 11/10/24 21:58 Dose: 999 mls/hr Documented By: BRODERICK Pantoprazole Sodium (Protonix) 40 mg in 10 mls @ 5 mls/min IV NOW ONE Stop: 11/10/24 21:45 Last Admin: 11/10/24 21:59 Dose: 5 mls/min Documented By: BRODERICK Famotidine (Pepcid 20mg Iv Push) 20 mg in 5 mls @ 2.5 mls/min IV NOW STA Stop: 11/10/24 21:45 Last Admin: 11/10/24 21:58 Dose: 2.5 mls/min Documented By: BRODERICK Thiamine HCl 100 mg/ Syringe 10 mls @ 2 mls/min IV NOW STA Stop: 11/10/24 21:48 Last Admin: 11/10/24 22:13 Dose: 2 mls/min Documented By: BRODERICK Folic Acid 1 mg/ Syringe 10 mls @ 5 mls/min IV NOW STA Stop: 11/10/24 21:45 Last Admin: 11/10/24 22:13 Dose: 5 mls/min Documented By: BRODERICK Sodium Chloride (Nss) 1,000 mls @ 999 mls/hr IV .Q1H1M ONE Stop: 11/11/24 00:54 Last Infusion: 11/11/24 01:18 Dose: Infused Documented By: Admin: 11/11/24 00:03 Dose: 999 mls/hr Documented By: BRODERICK Magnesium Sulfate/Dextrose (Magnesium Sulfate / D5w) 1 gm in 100 mls @ 50 mls/hr IV ONE STA Stop: 11/11/24 05:28 Last Infusion: 11/11/24 06:00 Dose: Infused Documented By: Admin: 11/11/24 03:49 Dose: 50 mls/hr Documented By: BRENDAN Ioversol (Optiray 320 125ml) 118 ml IV ONCE ONE Stop: 11/10/24 22:50 Last Admin: 11/10/24 22:49 Dose: 118 ml Documented By: SEDA Lorazepam (Lorazepam 2 Mg/1 Ml Vial) 1 mg IV NOW STA Stop: 11/10/24 21:45 Last Admin: 11/10/24 21:59 Dose: 1 mg Documented By: BRODERICK Multivitamins (Multivitamin Tab) 1 tab PO NOW STA Stop: 11/10/24 21:45 Last Admin: 11/11/24 02:11 Dose: Not Given Documented By: RASTA Ondansetron HCl (Ondansetron Inj 2 Mg/Ml 2 Ml Vial) 4 mg IV NOW STA Stop: 11/10/24 22:07 Last Admin: 11/10/24 22:12 Dose: 4 mg Documented By: BRODERICK Imaging Data Radiologist's Impression: Chest X-Ray 11/10/24 21:41 Exam(s): XR CXR 1 VIEW EXAM: XR Chest, 1 View CLINICAL HISTORY: Reason for exam: Chest pain, nonspecific. TECHNIQUE: Frontal view of the chest. COMPARISON: 06/04/24 FINDINGS: Lungs: No consolidation. Pleural space: No pleural effusion or pneumothorax. Heart: No cardiomegaly or pulmonary vascular congestion. Bones/joints: No acute fracture. No dislocation. IMPRESSION: No evidence of acute cardiopulmonary disease. Electronically signed by: Tobi Trujillo M.D. 11/11/24 02:46 AM Abdomen/Pelvis CT 11/10/24 22:06 Exam(s): CT ABDOMEN + PELVIS With Contrast IV Amt: OPTIRAY 320 118ML EXAM: CT Abdomen and Pelvis With Intravenous Contrast CLINICAL HISTORY: Reason for exam: Abdominal pain, hematemesis. TECHNIQUE: Axial computed tomography images of the abdomen and pelvis with intravenous contrast. CTDI is 16.56 mGy and DLP is 758.34 mGy-cm. Automated exposure control was utilized for the study. A dose lowering technique was utilized adhering to the principles of ALARA. CONTRAST: Patient received OPTIRAY 320 118ML of IV contrast COMPARISON: 10/03/24 FINDINGS: Lung bases: Reported separately. ABDOMEN: Liver: Unremarkable. No mass. Gallbladder and bile ducts: Cholecystectomy. No ductal dilation. Pancreas: Stable changes of chronic pancreatitis with parenchymal calcifications, gland atrophy common duct dilatation. Spleen: Unremarkable. No splenomegaly. Adrenals: Unremarkable. No mass. Kidneys and ureters: Unremarkable. No solid mass. No hydronephrosis. Stomach and bowel: Fluid filled loops of small bowel. No obstruction. No mucosal thickening. PELVIS: Appendix: Appendix not visualized. Bladder: Unremarkable. No mass. Reproductive: Unremarkable as visualized. ABDOMEN and PELVIS: Intraperitoneal space: Unremarkable. No free fluid or free air. Bones/joints: Posterior decompression, posterior hardware fixation, and interbody fusion L4-S1. No hardware complication. No acute fracture or dislocation. Soft tissues: Unremarkable. Vasculature: No aortic aneurysm. Extensive collateral vessels in the left abdomen. Lymph nodes: Unremarkable. No enlarged lymph nodes. IMPRESSION: Fluid filled loops of small bowel. Appearance could represent enteritis in the appropriate clinical setting and is similar to prior CT. Electronically signed by: Tobi Trujillo M.D. 11/10/24 23:47 PM Chest CTA 11/10/24 22:06 Exam(s): CTA CHEST IV Amt: 118ML OPTIRAY 320 EXAM: CT Angiography Chest With Intravenous Contrast CLINICAL HISTORY: Reason for exam: chest pain, SOB, h/o PE, hematemesis. TECHNIQUE: Axial computed tomographic angiography images of the chest with intravenous contrast. CTDI is 18.39 mGy and DLP is 708.62 mGy-cm. Automated exposure control was utilized for the study. A dose lowering technique was utilized adhering to the principles of ALARA. MIP reconstructed images were created and reviewed. COMPARISON: No relevant prior studies available. FINDINGS: Pulmonary arteries: Unremarkable. No evidence of acute pulmonary embolism. Aorta: No acute findings. No aortic aneurysm or dissection. Lungs: Unremarkable. No mass. No consolidation. Pleural space: Unremarkable. No significant effusion. No pneumothorax. Heart: Atherosclerosis of the left anterior descending coronary artery. No cardiomegaly, RV strain, or pericardial effusion. Bones/joints: No acute fracture. No dislocation. Soft tissues: Unremarkable. Lymph nodes: Unremarkable. No enlarged lymph nodes. IMPRESSION: No evidence of acute pulmonary embolism. Electronically signed by: Tobi Trujillo M.D. 11/10/24 23:[address] 11/11/24 02:37 EXAM: CT head/brain wo con CLINICAL HISTORY: Dizziness. TECHNIQUE: Axial non-contrast CT scan of the brain was performed from the skull base to the high parietal region. One of the following dose reduction techniques was utilized for this exam: Automated exposure control, adjustment of the mA and/or kV according to patient size, and use of iterative reconstruction. CTDI: 37.42mGy and DLP: 624.41 mGy-cm. COMPARISON: With the prior study 01/06/2023. FINDINGS: Brain Parenchyma: Normal attenuation of the cerebral hemispheres, cerebellum, and brainstem. No evidence of acute infarct, hemorrhage, or mass effect. No abnormal areas of hypo- or hyperattenuation. Ventricular System: Ventricles are normal in size and configuration. No evidence of hydrocephalus or ventricular enlargement. Subarachnoid Spaces: Normal sulci and cisterns. No evidence of subarachnoid hemorrhage or extra-axial fluid collections. Cerebellum and Brainstem: Normal size and signal. No masses, lesions, or areas of abnormal signal. Orbits: Normal appearance of the globes, optic nerves, and extraocular muscles. No evidence of orbital masses or abnormal density. Sinuses: The left maxillary sinus shows a defective medial antral wall with diffuse mucosal thickening noted. A small right maxillary sinus retention cyst is seen. Mastoid Air Cells: Clear mastoid air cells. No evidence of mastoiditis. Skull: Normal skull morphology. IMPRESSION: 1. No acute intracranial abnormality. 2. Left maxillary sinusitis noted. 3. A small right maxillary sinus retention cyst is seen. 4. No significant interval changes. Electronically signed by Rex Hernandez 11-11-2024 05:02 AM Discharge Plan Visit Data Chief Complaint: Abdominal Pain Stated Complaint: ABDOMINAL PAIN, BACK PAIN, VERTIGO ED Provider: Radha Jeong ED Midlevel Provider: Clau Chu. Discharge Problem: Intractable abdominal pain, Alcohol withdrawal, Chronic pancreatitis, SOB (shortness of breath) Patient Disposition: Admitted As Inpatient Condition: Good Discharge Instructions Interventions: ED Discharge Assessment Last Done: 11/11/24 04:07 Discharge Problem: Chronic pancreatitis Qualifiers: Pancreatitis type: alcohol induced Qualified Code(s): K86.0 - Alcohol-induced chronic pancreatitis
[2024-11-10] MEDS: FAMOTIDINE 20MG IV PUSH 20 MG/5 ML SYR IV STA (21:58)
[2024-11-10] MEDS: SODIUM CHLORIDE 0.9% 1,000 ML IV ONE (21:58)
[2024-11-10] MEDS: PANTOprazole 40 MG/10 ML SYR IV ONE (21:59)
[2024-11-10] MEDS: HYDROmorphone INJ 0.5 MG/0.5 ML SYR IV STA ×2 (21:59→23:42)
[2024-11-10] MEDS: LORazepam 2 MG/1 ML VIAL IV STA (21:59)
[2024-11-10] MEDS: ONDANSETRON INJ 2 MG/ML 2 ML VIAL IV STA (22:12)
[2024-11-10] MEDS: FOLIC ACID 1 MG in SYRINGE 9.8 ML IV STA (22:13)
[2024-11-10] MEDS: THIAMINE HCL 100 MG in SYRINGE 9 ML IV STA (22:13)
[2024-11-10 22:17] LABS: Basophils # (auto) 0.06 K/uL (0.00-0.20); Basophils % (auto) 0.9 %; Eosinophils # (auto) 0.11 K/uL (0.00-0.50); Eosinophils % (auto) 1.7 %; Hemoglobin 15.3 g/dl (14.0-18.0); Immature Granulocytes # (auto) 0.01 K/uL (0.01-0.20); Immature Granulocytes % (auto) 0.2 %; Lymphocytes # (auto) 1.21 K/uL (1.20-3.40); Mean Corpuscular Hemoglobin 34.3 pg (25.0-34.0); Mean Corpuscular Hgb Conc 35.6 g/dL (32.0-36.0); Mean Corpuscular Volume 96.4 fL (80.0-100.0); Mean Platelet Volume 9.2 fL (9.4-12.4); Monocytes # (auto) 0.51 K/uL (0.11-0.59); Neutrophils # (auto) 4.47 K/uL (1.40-6.50); Neutrophils % (auto) 70.2 %; Platelet Count 170 K/uL (130-400); RDW Coefficient of Variation 11.1 % (11.5-14.5); RDW Standard Deviation 39.6 fL (36.4-46.3); Red Blood Count 4.46 M/uL (4.70-6.10); White Blood Count 6.37 K/ul (4.8-10.8)
[2024-11-10 22:34] LABS: Albumin Globulin Ratio 1.4 (0.9-2); Albumin Level 4.3 gm/dl (3.4-5.0); BUN Creatinine Ratio 7.2 (10-20); Calcium 9.8 mg/dl (8.6-10.3); Globulin 3.1 gm/dl (2.5-4.0); Magnesium 1.9 mg/dl (1.7-2.4); Total Protein 7.4 gm/dl (6.0-8.3)
[2024-11-10 22:40] LABS: Partial Thromboplastin Time 26 Seconds (21-31); Prothrombin Time 10.9 Seconds (9.0-12.0); Troponin I High Sensitivity 2.9 pg/ml (0-20)
[2024-11-10 22:47] LABS: D Dimer 760 ug/L FEU (0-500)
[2024-11-10] MEDS: OPTIRAY 320 125ml IV ONE (22:49)
--- NOTE | 2024-11-10 23:45 | CT Scan Report ---
Exam(s): CTA CHEST IV Amt: 118ML OPTIRAY 320 EXAM: CT Angiography Chest With Intravenous Contrast CLINICAL HISTORY: Reason for exam: chest pain, SOB, h/o PE, hematemesis. TECHNIQUE: Axial computed tomographic angiography images of the chest with intravenous contrast. CTDI is 18.39 mGy and DLP is 708.62 mGy-cm. Automated exposure control was utilized for the study. A dose lowering technique was utilized adhering to the principles of ALARA. MIP reconstructed images were created and reviewed. COMPARISON: No relevant prior studies available. FINDINGS: Pulmonary arteries: Unremarkable. No evidence of acute pulmonary embolism. Aorta: No acute findings. No aortic aneurysm or dissection. Lungs: Unremarkable. No mass. No consolidation. Pleural space: Unremarkable. No significant effusion. No pneumothorax. Heart: Atherosclerosis of the left anterior descending coronary artery. No cardiomegaly, RV strain, or pericardial effusion. Bones/joints: No acute fracture. No dislocation. Soft tissues: Unremarkable. Lymph nodes: Unremarkable. No enlarged lymph nodes. IMPRESSION: No evidence of acute pulmonary embolism. Electronically signed by: Tobi Trujillo M.D. 11/10/24 23:44 PM
--- NOTE | 2024-11-10 23:48 | CT Scan Report ---
Exam(s): CT ABDOMEN + PELVIS With Contrast IV Amt: OPTIRAY 320 118ML EXAM: CT Abdomen and Pelvis With Intravenous Contrast CLINICAL HISTORY: Reason for exam: Abdominal pain, hematemesis. TECHNIQUE: Axial computed tomography images of the abdomen and pelvis with intravenous contrast. CTDI is 16.56 mGy and DLP is 758.34 mGy-cm. Automated exposure control was utilized for the study. A dose lowering technique was utilized adhering to the principles of ALARA. CONTRAST: Patient received OPTIRAY 320 118ML of IV contrast COMPARISON: 10/03/24 FINDINGS: Lung bases: Reported separately. ABDOMEN: Liver: Unremarkable. No mass. Gallbladder and bile ducts: Cholecystectomy. No ductal dilation. Pancreas: Stable changes of chronic pancreatitis with parenchymal calcifications, gland atrophy common duct dilatation. Spleen: Unremarkable. No splenomegaly. Adrenals: Unremarkable. No mass. Kidneys and ureters: Unremarkable. No solid mass. No hydronephrosis. Stomach and bowel: Fluid filled loops of small bowel. No obstruction. No mucosal thickening. PELVIS: Appendix: Appendix not visualized. Bladder: Unremarkable. No mass. Reproductive: Unremarkable as visualized. ABDOMEN and PELVIS: Intraperitoneal space: Unremarkable. No free fluid or free air. Bones/joints: Posterior decompression, posterior hardware fixation, and interbody fusion L4-S1. No hardware complication. No acute fracture or dislocation. Soft tissues: Unremarkable. Vasculature: No aortic aneurysm. Extensive collateral vessels in the left abdomen. Lymph nodes: Unremarkable. No enlarged lymph nodes. IMPRESSION: Fluid filled loops of small bowel. Appearance could represent enteritis in the appropriate clinical setting and is similar to prior CT. Electronically signed by: Tobi Trujillo M.D. 11/10/24 23:47 PM
[2024-11-10 23:54] LABS: Appearance Urine Clear (Clear); Bilirubin Urine Negative (Negative); Blood Urine Negative (Negative); Color Urine Yellow; Glucose Urine UA 3+ (Negative); Ketones Urine Negative (Negative); Leukocyte Esterase Urine Negative (Negative); Nitrite Urine Negative (Negative); Protein Urine Negative (Negative); Specific Gravity Urine 1.016 (1.000-1.030); Urobilinogen Urine Negative (Negative); pH Urine 5.5 (4.5-7.5)
[2024-11-11] MEDS: SODIUM CHLORIDE 0.9% 1,000 ML IV ONE (00:03)
[2024-11-11] MEDS ORDERED: ACETAMINOPHEN 500 MG TAB PO PRN (01:45)
[2024-11-11] MEDS ORDERED: oxyCODONE HCL IR 5 MG TAB (IMMEDIATE RELEASE) PO PRN (01:45)
[2024-11-11] MEDS: HYDROmorphone HCL 2 MG TAB PO PRN (02:10)
[2024-11-11] MEDS: MULTIVITAMIN TAB PO STA (02:11)
--- NOTE | 2024-11-11 02:37 | History & Physical Report ---
Date of Service November 11, 2024 Assessment & Plan (1) Alcohol withdrawal: Plan: Alcohol withdrawal Patient noted to be tremulous in the ER. 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 anticipation of procedure Analgesia, judicious narcotic use given history drug abuse as per records CT head RE dizziness/imbalance symptoms, may need MRI brain basal bolus insulin adjusted for n.p.o. status, ISS BG goal 110-140 DVT prophylaxis SCDs re: possible UGIB Full code Text document was generated using [employer] voice recognition software. It may contain grammatical or spelling errors. Kindly contact undersigned for clarification of any documentation item in question. History of Present Illness Chief Complaint: Abdominal pain, chest pain, worsening dysphagia Primary Care Provider: Dhiraj Myers DO History is obtained from the patient and records. Medical history is significant for alcohol abuse, chronic pancreatitis, GERD/Renae's esophagus, ADD/mood disorder as per records, DM2 insulin requiring, hx PE/recurrent DVT off anticoagulation, history of chronic pain, hx narcotic abuse as per records/terminated medication agreement. Recent confinement last month for abdominal pain attributed to chronic pancreatitis and alcoholic gastritis. Patient also had ongoing dysphagia complaints mostly with solids over the last few months. GI service recommended outpatient follow-up/EGD with [facility]. Progressive dysphagia over the last few weeks. Intermittent episodes of dizziness described as lightheadedness with headache symptoms. Feeling of imbalance as per patient. 2 days ago, patient noted achy abdominal discomfort going to the chest with some SOB. Episode similar to pancreatitis attack. Mushy stools nonbloody. At the ER, patient noted to have dark emesis. MEDICAL HISTORY: As above. EGD 2019 showed mild gastritis, mild duodenitis SURGERIES: Appendectomy, cholecystectomy, vascular device placement, back surgery FAMILY HISTORY: mood disorder. Alcoholism, heart disease. 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 Allergies Allergy/AdvReac Type Severity Reaction Status Date / Time No Known Allergies Allergy Verified 08/14/23 21:23 Home Medications Medication Instructions Recorded Confirmed Type pantoprazole 40 mg tablet,delayed 40 mg PO DAILYBB 01/03/23 11/11/24 History release ondansetron 4 mg disintegrating 4 mg PO BID PRN nausea and 08/17/23 11/11/24 Rx tablet vomiting #20 tabs albuterol sulfate 90 mcg/actuation 2 puff inhalation Q6 PRN Shortness 02/01/24 11/11/24 History aerosol inhaler Of Breath cyclobenzaprine 10 mg tablet 10 mg PO BID PRN Muscle Spasm 02/01/24 11/11/24 History duloxetine 20 mg capsule,delayed 20 mg PO QAM PRN Pain 02/01/24 11/11/24 History release empagliflozin 10 mg tablet 10 mg PO QAM 02/01/24 11/11/24 History (Jardiance) insulin glargine 100 unit/mL 10 unit subcut HS 02/01/24 11/11/24 History subcutaneous solution (Lantus U-100 Insulin) paroxetine HCl 30 mg tablet 30 mg PO QAM 06/04/24 11/11/24 History hydromorphone 2 mg tablet 2 mg PO Q6 PRN pain #14 tabs 10/07/24 11/11/24 Rx (Dilaudid) Past Med/Surg History Problem List (Updated 11/11/24 @ 06:39 by Clau Chu PA-C) SOB (shortness of breath) (Acute) Dysphagia Chest pain (Acute) Influenza A (Acute) Chronic abdominal pain (Acute) Alcoholic gastritis (Acute) Nausea (Acute) History of alcohol abuse (Acute) Abdominal pain (Acute) Influenza A (Acute) Lower abdominal pain Bright red blood per rectum (Acute) Alcohol abuse (Acute) Acute GI bleeding (Acute) Rectal bleed Alcohol use disorder (Acute) Chronic pancreatitis (Acute) Intussusception (Acute) Abdominal pain Substance or medication-induced depressive disorder Alcohol use disorder, severe, dependence Epigastric abdominal pain (Acute) Gastritis (Acute) Alcohol dependence (Acute) SBO (small bowel obstruction) (Acute) Fall (Acute) DKA (diabetic ketoacidosis) (Acute) Acute on chronic pancreatitis (Acute) Alcohol abuse (Acute) Hyperglycemia due to type 2 diabetes mellitus (Acute) Hyperglycemic crisis in diabetes mellitus Alcohol abuse (Acute) Acute hyperglycemia (Acute) History of acute pancreatitis (Acute) Alcohol withdrawal (Acute) Acute hyperglycemia (Acute) Acute epigastric pain (Acute) Hyponatremia Pancreatitis (Acute) COVID-19 (Acute) Chronic pancreatitis (Acute) Acute alcoholic pancreatitis (Acute) Acute hyperglycemia (Acute) Elevated LFTs (Acute) Recurrent pancreatitis (Acute) Alcohol withdrawal DVT prophylaxis Tobacco use Alcohol intoxication (Acute) Dehydration (Acute) Acute alcoholic pancreatitis Alcohol abuse (Acute) Alcohol abuse (Acute) Hypotension (Acute) Alcohol abuse (Acute) Acute hyperglycemia (Acute) Vomiting (Acute) Epigastric abdominal pain (Acute) Acute alcoholic pancreatitis (Acute) Acute hyperglycemia (Acute) Acidosis, lactic (Acute) Acute pancreatitis (Acute) Acute hyperglycemia (Acute) Acute bilateral upper abdominal pain (Acute) Alcohol withdrawal Pancreatitis (Acute) Lactic acidosis (Acute) Intractable abdominal pain (Acute) Encounter for pre-operative examination Pancreatitis (Acute) Alcohol abuse (Acute) Encounter for tobacco use cessation counseling (Acute) Encounter for alcohol abuse counseling and surveillance (Acute) Acute hyperglycemia (Acute) DM type 2 (diabetes mellitus, type 2) (Chronic) Renae's esophagus (Chronic Unknown) "per EGD 11/23/09 " On 05/31/11 09:06 Martinez Jose wrote "per EGD 11/23/09 " H/O acute pancreatitis (Chronic) "recurrent" Alcohol abuse (Chronic Unknown) History of substance abuse (Chronic) Depression (Chronic) Panic disorder (Chronic) Lumbar degenerative disc disease (Chronic) Suicidal ideation (Chronic) Mood disorder (Chronic) Mood disorder (Chronic) Depression (Chronic) H/O esophagogastroduodenoscopy (Chronic) "EGD 11/23/2009- mild gastritis, suspicious for gastroparesis, Z-line ir regular EUS 02/04/2010- mild chronic pancreatitis, pronounced cholesterolosis of gallbladder, no biliary dilation or stones, probable gastroparesis EGD 10/31/2014- gastritis" Abdominal pain Chest pain (Acute) Hyperglycemia (Acute) Neuropathy (Acute) Medical History Abdominal pain Pancreatic duct stones Abdominal pain, acute, epigastric Retrosternal chest pain History of pulmonary embolism Alcohol withdrawal Alcoholic ketosis COVID-19 Nausea & vomiting Alcohol abuse Abdominal pain Surgical History S/P lumbar fusion L4-S1 2014 Family History Father Alcohol abuse Social History Smoking Status: Former smoker Tobacco Type: Smokeless Tobacco (Dip or Chew) Second Hand Exposure: No; Do You Dip or Chew Tobacco: Yes; Tobacco Cessation Education Requested by Patient: No Hx Alcohol Use: Yes Alcohol type: beer Hx Substance Use: No Preferred Language: Chinese Communication Ability: Effective 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 Beliefs That Will Affect Care: None marital status: Current Living Situation: Parent Current Living Situation Comment: mobile home with mother How many Children do You have: 3 Feels Safe at Home: Yes Safety Concerns: Feels Safe At This Time Assistive Devices: Glasses Review of Systems Review of Systems: As per HPI, all other systems reviewed and negative Physical Exam Physical Exam: GENERAL: looks older than stated age, tremulous, no respiratory distress SKIN: Normal color, warm HEENT: Alopecia, pink palpebral conjunctivae, no ptosis, dry buccal mucosa NECK : Supple, short neck, no tenderness CHEST : CTA, no tenderness HEART : Tachycardic, no obvious murmurs ABDOMEN: Some distention, epigastric tenderness EXTREMITIES : No LE swelling, no LE tenderness NEUROLOGIC : Coherent, no facial asymmetry, MMTS BUE/BLE 4/5; tremulous, gait and stance not assessed Results & Data Results & Data Vital Signs (Past 12 Hours) Vital Signs Temp Pulse Pulse Resp BP BP Pulse Ox 11/11/24 02:04 92 H 11/11/24 01:00 98 H 13 115/76 98 11/10/24 23:00 103 H 14 105/77 96 11/10/24 22:11 106 H 11/10/24 21:18 36.8 C 107 H 18 145/93 H 99 O2 Del Method 11/11/24 02:04 11/11/24 01:00 Room Air 11/10/24 23:00 Room Air 11/10/24 22:11 11/10/24 21:18 Room Air Laboratory Results Laboratory Results WBC 6.37 K/ul (4.8-10.8) 11/10/24 21:37 RBC 4.46 M/uL (4.70-6.10) L 11/10/24 21:37 Hgb 15.3 g/dl (14.0-18.0) 11/10/24 21:37 Hct 43.0 % (42.0-52.0) 11/10/24 21:37 MCV 96.4 fL (80.0-100.0) 11/10/24 21:37 MCH 34.3 pg (25.0-34.0) H 11/10/24 21: MCHC 35.6 g/dL (32.0-36.0) 11/10/24 21: RDW Std Deviation 39.6 fL (36.4-46.3) 11/10/24 21:37 RDW Coeff of Gucci 11.1 % (11.5-14.5) L 11/10/24 21:37 Plt Count 170 K/uL (130-400) 11/10/24 21:37 MPV 9.2 fL (9.4-12.4) L 11/10/24 21:37 Immature Gran % (Auto) 0.2 % 11/10/24 21:37 Neut % (Auto) 70.2 % 11/10/24 21:37 Lymph % (Auto) 19.0 % 11/10/24 21:37 [place] % (Auto) 8.0 % 11/10/24 21:37 Eos % (Auto) 1.7 % 11/10/24 21:37 Baso % (Auto) 0.9 % 11/10/24 21:37 Neut # (Auto) 4.47 K/uL (1.40-6.50) 11/10/24 21:37 Lymph # (Auto) 1.21 K/uL (1.20-3.40) 11/10/24 21:37 [place] # (Auto) 0.51 K/uL (0.11-0.59) 11/10/24 21:37 Eos # (Auto) 0.11 K/uL (0.00-0.50) 11/10/24 21:37 Baso # (Auto) 0.06 K/uL (0.00-0.20) 11/10/24 21:37 Immature Gran # (Auto) 0.01 K/uL (0.01-0.20) 11/10/24 21:37 PT 10.9 Seconds (9.0-12.0) 11/10/24 21:37 INR 1.0 (0.9-1.1) 11/10/24 21:37 APTT 26 Seconds (21-31) 11/10/24 21:37 PTT Ratio 1.0 11/10/24 21:37 D-Dimer 760 ug/L FEU (0-500) H* 11/10/24 21:37 Sodium 132 mmol/L (136-145) L 11/10/24 21:37 Potassium 4.0 mmol/L (3.5-5.1) 11/10/24 21:37 Chloride 95 mmol/L (98-107) L 11/10/24 21:37 Carbon Dioxide 28 mmol/L (21-32) 11/10/24 21:37 Anion Gap 9 (3-11) 11/10/24 21:37 BUN 6 mg/dl (6-23) 11/10/24 21:37 Creatinine 0.83 mg/dl (0.6-1.4) 11/10/24 21:37 Est Cr Clr Drug Dosing 116.0 ml/min 11/10/24 21:37 eGFR 105.96 11/10/24 21:37 BUN/Creatinine Ratio 7.2 (10-20) L 11/10/24 21:37 Glucose 141 mg/dl (70-99(Fasting)) H 11/10/24 21:37 Osmolality 335 mOsm/kg (280-300) H 11/10/24 21:47 Calcium 9.8 mg/dl (8.6-10.3) 11/10/24 21:37 Magnesium 1.9 mg/dl (1.7-2.4) 11/10/24 21:37 Total Bilirubin 1.0 mg/dl (0.2-1.0) 11/10/24 21:37 AST 83 U/L (13-39) H 11/10/24 21:37 ALT 43 U/L (7-52) 11/10/24 21:37 Alkaline Phosphatase 138 U/L (34-104) H 11/10/24 21:37 Troponin I High Sens 2.9 pg/ml (0-20) 11/10/24 21:37 Total Protein 7.4 gm/dl (6.0-8.3) 11/10/24 21:37 Albumin 4.3 gm/dl (3.4-5.0) 11/10/24 21:37 Globulin 3.1 gm/dl (2.5-4.0) 11/10/24 21:37 Albumin/Globulin Ratio 1.4 (0.9-2) 11/10/24 21:37 Lipase 8 U/L (11-82) L 11/10/24 21:37 Urine Color Yellow 11/10/24 23:35 Urine Appearance Clear (Clear) 11/10/24 23:35 Urine pH 5.5 (4.5-7.5) 11/10/24 23:35 Ur Specific [place] 1.016 (1.000-1.030) 11/10/24 23:35 Urine Protein Negative (Negative) 11/10/24 23:35 Urine Glucose (UA) 3+ (Negative) H 11/10/24 23:35 Urine Ketones Negative (Negative) 11/10/24 23:35 Urine Blood Negative (Negative) 11/10/24 23:35 Urine Nitrite Negative (Negative) 11/10/24 23:35 Urine Bilirubin Negative (Negative) 11/10/24 23:35 Urine Urobilinogen Negative (Negative) 11/10/24 23:35 Ur Leukocyte Esterase Negative (Negative) 11/10/24 23:35 Urine Osmolality 191 mOsm/kg (500-800) L 11/10/24 23:35 Ur Random Sodium 16 mmol/L 11/10/24 23:35 Ethyl Alcohol mg/dL 226.5 mg/dl (<10.0) H 11/10/24 21:37 Impressions Abdomen/Pelvis CT 11/10/24 22:06 Exam(s): CT ABDOMEN + PELVIS With Contrast IV Amt: OPTIRAY 320 118ML EXAM: CT Abdomen and Pelvis With Intravenous Contrast CLINICAL HISTORY: Reason for exam: Abdominal pain, hematemesis. TECHNIQUE: Axial computed tomography images of the abdomen and pelvis with intravenous contrast. CTDI is 16.56 mGy and DLP is 758.34 mGy-cm. Automated exposure control was utilized for the study. A dose lowering technique was utilized adhering to the principles of ALARA. CONTRAST: Patient received OPTIRAY 320 118ML of IV contrast COMPARISON: 10/03/24 FINDINGS: Lung bases: Reported separately. ABDOMEN: Liver: Unremarkable. No mass. Gallbladder and bile ducts: Cholecystectomy. No ductal dilation. Pancreas: Stable changes of chronic pancreatitis with parenchymal calcifications, gland atrophy common duct dilatation. Spleen: Unremarkable. No splenomegaly. Adrenals: Unremarkable. No mass. Kidneys and ureters: Unremarkable. No solid mass. No hydronephrosis. Stomach and bowel: Fluid filled loops of small bowel. No obstruction. No mucosal thickening. PELVIS: Appendix: Appendix not visualized. Bladder: Unremarkable. No mass. Reproductive: Unremarkable as visualized. ABDOMEN and PELVIS: Intraperitoneal space: Unremarkable. No free fluid or free air. Bones/joints: Posterior decompression, posterior hardware fixation, and interbody fusion L4-S1. No hardware complication. No acute fracture or dislocation. Soft tissues: Unremarkable. Vasculature: No aortic aneurysm. Extensive collateral vessels in the left abdomen. Lymph nodes: Unremarkable. No enlarged lymph nodes. IMPRESSION: Fluid filled loops of small bowel. Appearance could represent enteritis in the appropriate clinical setting and is similar to prior CT. Electronically signed by: Tobi Trujillo M.D. 11/10/24 23:47 PM Chest CTA 11/10/24 22:06 Exam(s): CTA CHEST IV Amt: 118ML OPTIRAY 320 EXAM: CT Angiography Chest With Intravenous Contrast CLINICAL HISTORY: Reason for exam: chest pain, SOB, h/o PE, hematemesis. TECHNIQUE: Axial computed tomographic angiography images of the chest with intravenous contrast. CTDI is 18.39 mGy and DLP is 708.62 mGy-cm. Automated exposure control was utilized for the study. A dose lowering technique was utilized adhering to the principles of ALARA. MIP reconstructed images were created and reviewed. COMPARISON: No relevant prior studies available. FINDINGS: Pulmonary arteries: Unremarkable. No evidence of acute pulmonary embolism. Aorta: No acute findings. No aortic aneurysm or dissection. Lungs: Unremarkable. No mass. No consolidation. Pleural space: Unremarkable. No significant effusion. No pneumothorax. Heart: Atherosclerosis of the left anterior descending coronary artery. No cardiomegaly, RV strain, or pericardial effusion. Bones/joints: No acute fracture. No dislocation. Soft tissues: Unremarkable. Lymph nodes: Unremarkable. No enlarged lymph nodes. IMPRESSION: No evidence of acute pulmonary embolism. Electronically signed by: Tobi Trujillo M.D. 11/10/24 23:44 PM Diagnostic Findings EKG as per my interpretation :Rate 90, NSR, normal axis, T wave flattening septal leads (1) Alcohol withdrawal Complication of substance-induced condition: uncomplicated Qualified Code(s): F10.930 - Alcohol use, unspecified with withdrawal, uncomplicated
[2024-11-11] MEDS ORDERED: GABAPENTIN 1200MG ALCOHOL WITHDRAWAL LOAD PO STA (02:42)
[2024-11-11] MEDS ORDERED: Ativan IV Alcohol Withdrawal--Active Protocol IV PRN (02:42)
--- NOTE | 2024-11-11 02:47 | XRay Report ---
Exam(s): XR CXR 1 VIEW EXAM: XR Chest, 1 View CLINICAL HISTORY: Reason for exam: Chest pain, nonspecific. TECHNIQUE: Frontal view of the chest. COMPARISON: 06/04/24 FINDINGS: Lungs: No consolidation. Pleural space: No pleural effusion or pneumothorax. Heart: No cardiomegaly or pulmonary vascular congestion. Bones/joints: No acute fracture. No dislocation. IMPRESSION: No evidence of acute cardiopulmonary disease. Electronically signed by: Tobi Trujillo M.D. 11/11/24 02:46 AM
[2024-11-11] MEDS: GABAPENTIN 600 MG TAB PO STA (03:02)
[2024-11-11 03:24] LABS: Hemoglobin 15.9 g/dl (14.0-18.0)
[2024-11-11 03:43] LABS: Thyroid Stimulating Hormone 4.004 uIu/ml (0.300-4.500)
[2024-11-11] MEDS: PROMETHAZINE 6.25 MG/50.25 ML BAG IV PRN (03:48)
[2024-11-11] MEDS: MAGNESIUM SULFATE / D5W 1 GM/100 ML BAG IV STA (03:49)
[2024-11-11] MEDS ORDERED: GLUCAGON FOR INJ 1 MG VIAL SQ PRN (04:39)
[2024-11-11] MEDS ORDERED: GLUCOSE 10 TAB/TUBE PO PRN (04:39)
[2024-11-11] MEDS ORDERED: GLUCOSE 40% GEL 15 GM TUBE PO PRN (04:39)
--- NOTE | 2024-11-11 05:02 | CT Scan Report ---
EXAM: CT head/brain wo con CLINICAL HISTORY: Dizziness. TECHNIQUE: Axial non-contrast CT scan of the brain was performed from the skull base to the high parietal region. One of the following dose reduction techniques was utilized for this exam: Automated exposure control, adjustment of the mA and/or kV according to patient size, and use of iterative reconstruction. CTDI: 37.42mGy and DLP: 624.41 mGy-cm. COMPARISON: With the prior study 01/06/2023. FINDINGS: Brain Parenchyma: Normal attenuation of the cerebral hemispheres, cerebellum, and brainstem. No evidence of acute infarct, hemorrhage, or mass effect. No abnormal areas of hypo- or hyperattenuation. Ventricular System: Ventricles are normal in size and configuration. No evidence of hydrocephalus or ventricular enlargement. Subarachnoid Spaces: Normal sulci and cisterns. No evidence of subarachnoid hemorrhage or extra-axial fluid collections. Cerebellum and Brainstem: Normal size and signal. No masses, lesions, or areas of abnormal signal. Orbits: Normal appearance of the globes, optic nerves, and extraocular muscles. No evidence of orbital masses or abnormal density. Sinuses: The left maxillary sinus shows a defective medial antral wall with diffuse mucosal thickening noted. A small right maxillary sinus retention cyst is seen. Mastoid Air Cells: Clear mastoid air cells. No evidence of mastoiditis. Skull: Normal skull morphology. IMPRESSION: 1. No acute intracranial abnormality. 2. Left maxillary sinusitis noted. 3. A small right maxillary sinus retention cyst is seen. 4. No significant interval changes. Electronically signed by Rex Hernandez 11-11-2024 05:02 AM
[2024-11-11] MEDS: DEXTROSE 5% 500 ML IV STA (05:14)
[2024-11-11] MEDS: INSULIN ASPART PER UNIT CHARGE SC SCH (05:14)
[2024-11-11] MEDS: FOLIC ACID 1 MG TAB PO SCH (08:15)
[2024-11-11] MEDS: THIAMINE HCL 100 MG TAB PO SCH (08:15)
[2024-11-11] MEDS: GABAPENTIN 600 MG TAB PO SCH ×2 (08:15→23:18)
[2024-11-11] MEDS: PARoxetine HCL 10 MG TAB PO SCH (08:15)
[2024-11-11] MEDS: MULTIVITAMIN TAB PO SCH (08:15)
[2024-11-11] MEDS: PANTOprazole 40 MG/10 ML SYR IV SCH (08:15)
[2024-11-11 10:37] LABS: Basophils # (auto) 0.02 K/uL (0.00-0.20); Basophils % (auto) 0.5 %; Eosinophils # (auto) 0.15 K/uL (0.00-0.50); Hematocrit (blood only) 43.7 % (42.0-52.0); Hemoglobin 15.2 g/dl (14.0-18.0); Immature Granulocytes # (auto) 0.02 K/uL (0.01-0.20); Immature Granulocytes % (auto) 0.5 %; Lymphocytes % (auto) 26.6 %; Mean Corpuscular Hemoglobin 33.7 pg (25.0-34.0); Mean Corpuscular Hgb Conc 34.8 g/dL (32.0-36.0); Mean Corpuscular Volume 96.9 fL (80.0-100.0); Mean Platelet Volume 9.1 fL (9.4-12.4); Monocytes # (auto) 0.32 K/uL (0.11-0.59); Monocytes % (auto) 8.5 %; Neutrophils # (auto) 2.25 K/uL (1.40-6.50); Neutrophils % (auto) 59.9 %; Platelet Count 121 K/uL (130-400); RDW Coefficient of Variation 11.3 % (11.5-14.5); RDW Standard Deviation 40.2 fL (36.4-46.3); Red Blood Count 4.51 M/uL (4.70-6.10); White Blood Count 3.76 K/ul (4.8-10.8)
--- NOTE | 2024-11-11 10:44 | Electrocardiogram Report ---
Test Reason : Blood Pressure : */* mmHG Vent. Rate : 90 BPM Atrial Rate : 90 BPM P-R Int : 146 ms QRS Dur : 80 ms QT Int : 360 ms P-R-T Axes : 73 68 69 degrees QTcB Int : 440 ms Normal sinus rhythm Normal ECG When compared with ECG of 03-Oct-2024 19:49, No significant change was found Confirmed by Antoni Meek ([id number]) on 11/11/2024 10:44:11 AM Referred By: REFERRED SELF Confirmed By: Antoni Meek
[2024-11-11 11:01] LABS: Albumin Globulin Ratio 1.3 (0.9-2); Albumin Level 3.7 gm/dl (3.4-5.0); BUN Creatinine Ratio 6.4 (10-20); Calcium 9.5 mg/dl (8.6-10.3); Creatinine Clr Calc Pharmacy 121.7 ml/min; Globulin 2.8 gm/dl (2.5-4.0); Potassium 3.7 mmol/L (3.5-5.1); Total Protein 6.5 gm/dl (6.0-8.3)
--- NOTE | 2024-11-11 11:11 | Gastrointestinal Consultation ---
Date of Consultation November 11, 2024 Assessment & Plan (1) Dysphagia: (2) Abdominal pain: Plan Patient admitted with abdominal pain in the setting of chronic alcohol use. He reports ongoing issues with dysphagia and would like to have an EGD to further evaluate. He tells me that he was to have one as an outpatient but he feels he did not show up for this. - continue with protonix 40mg IV BID. - can consider EGD, but would hold off currently given active alcohol withdraw. - will discuss case further with Dr. Leal, further recommendations to follow. Supervising Physician Co-Signing Physician Notes I saw and examined this patient with our nurse practitioner and agree with her assessment and plan. Patient with alcohol withdrawal symptoms slowly resolving. Major complaints have been upper abdominal pain and persistent intermittent dysphagia. Difficult to distinguish between oropharyngeal and esophageal etiology. Abnormal LFTs consistent with an element of alcoholic hepatitis. He is not a candidate for steroid therapy. Continue to manage his alcohol withdrawal symptoms. Will plan on endoscopy to evaluate his dysphagia prior to discharge. I suspect his abdominal pain is related to his underlying chronic pancreatitis. No other abnormalities seen on CT scan to suggest otherwise. History of Present Illness Reason for Consultation: persistent dysphagia Requesting Physician: Bishop Enamorado MD Attending Physician: Luan Adam, DO History of Present Illness Patient is a 49 year old male patient with a past medical history of a history of chronic alcohol induced pancreatitis, GERD, Renae's esophagus, chronic pain syndrome, bipolar depression, general anxiety disorder, ADHD, type 2 diabetes, alcohol use disorder, and PE, who presented to the emergency department on 11/11/24 for evaluation of abdominal pain that has been ongoing for the past few days. The pain is epigastric in nature and radiates to his back. Symptoms have been intermittent for the past couple days, but became worse prior to presentation. The patient continues with trouble swallowing which has been ongoing. He tells me he was to have an EGD as outpatient but he thinks he did not show up for this. He is still drinking 8 beers a day. He admits that he has withdrawl symptoms when he does not drink and already feels tremors starting. He has reportedly been through rehab 7 times without success. The patient was last admitted to the hospital on 10/03/2024 for abdominal pain with CT scan that showed chronic pancreatitis, but no acute findings, stable alcoholic gastritis and stable dysphagia. The patient was advised to follow-up with GI as an outpatient for EGD and colonoscopy. However, he never followed up with GI. He is still able to swallow, food just gets hung up in his mid esophagus. he also reports a globus sensation and heartburn symptoms. rest of GI ros are unremarkable. CT AP 11/10/24 Fluid filled loops of small bowel. Appearance could represent enteritis in the appropriate clinical setting and is similar to prior CT. Allergies Allergy/AdvReac Type Severity Reaction Status Date / Time No Known Allergies Allergy Verified 08/14/23 21:23 Home Medications Medication Instructions Recorded Confirmed Type pantoprazole 40 mg tablet,delayed 40 mg PO DAILYBB 01/03/23 11/11/24 History release ondansetron 4 mg disintegrating 4 mg PO BID PRN nausea and 08/17/23 11/11/24 Rx tablet vomiting #20 tabs albuterol sulfate 90 mcg/actuation 2 puff inhalation Q6 PRN Shortness 02/01/24 11/11/24 History aerosol inhaler Of Breath cyclobenzaprine 10 mg tablet 10 mg PO BID PRN Muscle Spasm 02/01/24 11/11/24 History duloxetine 20 mg capsule,delayed 20 mg PO QAM PRN Pain 02/01/24 11/11/24 History release empagliflozin 10 mg tablet 10 mg PO QAM 02/01/24 11/11/24 History (Jardiance) insulin glargine 100 unit/mL 10 unit subcut HS 02/01/24 11/11/24 History subcutaneous solution (Lantus U-100 Insulin) paroxetine HCl 30 mg tablet 30 mg PO QAM 06/04/24 11/11/24 History hydromorphone 2 mg tablet 2 mg PO Q6 PRN pain #14 tabs 10/07/24 11/11/24 Rx (Dilaudid) Patient History Medical History Abdominal pain Pancreatic duct stones Abdominal pain, acute, epigastric Retrosternal chest pain History of pulmonary embolism Alcohol withdrawal Alcoholic ketosis COVID-19 Nausea & vomiting Alcohol abuse Abdominal pain Surgical History S/P lumbar fusion L4-S1 2014 Family History Father Alcohol abuse Social History Smoking Status: Former smoker Tobacco Type: Smokeless Tobacco (Dip or Chew) Second Hand Exposure: No; Do You Dip or Chew Tobacco: Yes; Tobacco Cessation Education Requested by Patient: No Hx Alcohol Use: Yes Alcohol type: beer Hx Substance Use: No Preferred Language: Upper Sorbian Communication Ability: Effective Survey Research Manager Required: No Beliefs That Will Affect Care: None marital status: Current Living Situation: Parent Current Living Situation Comment: mobile home with mother How many Children do You have: 3 Feels Safe at Home: Yes Safety Concerns: Feels Safe At This Time Assistive Devices: Glasses Review of Systems Review of Systems: All systems reviewed & are unremarkable except as noted in HPI & below Physical Exam Constitutional: WD/WN, vitals as above Respiratory: normal respiratory effort, lungs clear to auscultation Cardiovascular: Rate/Rhythm: regular rate and regular rhythm Gastrointestinal (Abdomen): mid epigastric/RUQ tenderness to palpation, no guarding, soft. normal bowel sounds. Psychiatric: Orientation: alert and oriented x 3 Results & Data Vital Signs (Past 12 Hours) Vital Signs Temp Pulse Pulse Pulse Resp BP BP 11/11/24 09:06 83 11/11/24 07:47 97.7 F 72 16 99/56 L 11/11/24 04:54 97.3 F L 73 18 101/65 11/11/24 04:07 73 18 115/76 11/11/24 03:00 103 H 20 111/77 11/11/24 02:04 92 H 11/11/24 01:00 98 H 13 115/76 Pulse Ox O2 Del Method 11/11/24 09:06 11/11/24 07:47 98 Room Air 11/11/24 04:54 98 Room Air 11/11/24 04:07 98 Room Air 11/11/24 03:00 99 Room Air 11/11/24 02:04 11/11/24 01:00 98 Room Air Laboratory Results Laboratory Results - last 48 hr 11/10/24 11/10/24 11/10/24 21:37 21:47 23:35 WBC 6.37 RBC 4.46 L Hgb 15.3 Hct 43.0 MCV 96.4 MCH 34.3 H MCHC 35.6 RDW Std Deviation 39.6 RDW Coeff of Gucci 11.1 L Plt Count 170 MPV 9.2 L Immature Gran % (Auto) 0.2 Neut % (Auto) 70.2 Lymph % (Auto) 19.0 [place] % (Auto) 8.0 Eos % (Auto) 1.7 Baso % (Auto) 0.9 Neut # (Auto) 4.47 Lymph # (Auto) 1.21 [place] # (Auto) 0.51 Eos # (Auto) 0.11 Baso # (Auto) 0.06 Immature Gran # (Auto) 0.01 PT 10.9 INR 1.0 APTT 26 PTT Ratio 1.0 D-Dimer 760 H* Sodium 132 L Potassium 4.0 Chloride 95 L Carbon Dioxide 28 Anion Gap 9 BUN 6 Creatinine 0.83 Est Cr Clr Drug Dosing 116.0 eGFR 105.96 BUN/Creatinine Ratio 7.2 L Glucose 141 H POC Glucose Osmolality 335 H Calcium 9.8 Magnesium 1.9 Total Bilirubin 1.0 AST 83 H ALT 43 Alkaline Phosphatase 138 H Troponin I High Sens 2.9 Total Protein 7.4 Albumin 4.3 Globulin 3.1 Albumin/Globulin Ratio 1.4 Lipase 8 L TSH Urine Color Yellow Urine Appearance Clear Urine pH 5.5 Ur Specific [place] 1.016 Urine Protein Negative Urine Glucose (UA) 3+ H Urine Ketones Negative Urine Blood Negative Urine Nitrite Negative Urine Bilirubin Negative Urine Urobilinogen Negative Ur Leukocyte Esterase Negative Urine Osmolality 191 L Ur Random Sodium 16 Ethyl Alcohol mg/dL 226.5 H Blood Type Antibody Screen 11/11/24 11/11/24 11/11/24 03:02 04:55 04:56 WBC RBC Hgb 15.9 Hct 44.0 MCV MCH MCHC RDW Std Deviation RDW Coeff of Gucci Plt Count MPV Immature Gran % (Auto) Neut % (Auto) Lymph % (Auto) [place] % (Auto) Eos % (Auto) Baso % (Auto) Neut # (Auto) Lymph # (Auto) [place] # (Auto) Eos # (Auto) Baso # (Auto) Immature Gran # (Auto) PT INR APTT PTT Ratio D-Dimer Sodium 138 Potassium Chloride Carbon Dioxide Anion Gap BUN Creatinine Est Cr Clr Drug Dosing eGFR BUN/Creatinine Ratio Glucose POC Glucose 69 L* 71 Osmolality Calcium Magnesium Total Bilirubin AST ALT Alkaline Phosphatase Troponin I High Sens Total Protein Albumin Globulin Albumin/Globulin Ratio Lipase TSH 4.004 Urine Color Urine Appearance Urine pH Ur Specific [place] Urine Protein Urine Glucose (UA) Urine Ketones Urine Blood Urine Nitrite Urine Bilirubin Urine Urobilinogen Ur Leukocyte Esterase Urine Osmolality Ur Random Sodium Ethyl Alcohol mg/dL Blood Type A Positive Antibody Screen NEGATIVE 11/11/24 11/11/24 11/11/24 09:42 12:02 12:03 WBC 3.76 L RBC 4.51 L Hgb 15.2 Hct 43.7 MCV 96.9 MCH 33.7 MCHC 34.8 RDW Std Deviation 40.2 RDW Coeff of Gucci 11.3 L Plt Count 121 L MPV 9.1 L Immature Gran % (Auto) 0.5 Neut % (Auto) 59.9 Lymph % (Auto) 26.6 [place] % (Auto) 8.5 Eos % (Auto) 4.0 Baso % (Auto) 0.5 Neut # (Auto) 2.25 Lymph # (Auto) 1.00 L [place] # (Auto) 0.32 Eos # (Auto) 0.15 Baso # (Auto) 0.02 Immature Gran # (Auto) 0.02 PT INR APTT PTT Ratio D-Dimer Sodium 138 Potassium 3.7 Chloride 102 Carbon Dioxide 27 Anion Gap 9 BUN 5 L Creatinine 0.78 Est Cr Clr Drug Dosing 121.7 eGFR 107.97 BUN/Creatinine Ratio 6.4 L Glucose 63 L POC Glucose 64 L* 69 L* Osmolality Calcium 9.5 Magnesium Total Bilirubin 1.0 AST 395 H ALT 109 H Alkaline Phosphatase 239 H Troponin I High Sens Total Protein 6.5 Albumin 3.7 Globulin 2.8 Albumin/Globulin Ratio 1.3 Lipase TSH Urine Color Urine Appearance Urine pH Ur Specific [place] Urine Protein Urine Glucose (UA) Urine Ketones Urine Blood Urine Nitrite Urine Bilirubin Urine Urobilinogen Ur Leukocyte Esterase Urine Osmolality Ur Random Sodium Ethyl Alcohol mg/dL Blood Type Antibody Screen 11/11/24 12:28 WBC RBC Hgb Hct MCV MCH MCHC RDW Std Deviation RDW Coeff of Gucci Plt Count MPV Immature Gran % (Auto) Neut % (Auto) Lymph % (Auto) [place] % (Auto) Eos % (Auto) Baso % (Auto) Neut # (Auto) Lymph # (Auto) [place] # (Auto) Eos # (Auto) Baso # (Auto) Immature Gran # (Auto) PT INR APTT PTT Ratio D-Dimer Sodium Potassium Chloride Carbon Dioxide Anion Gap BUN Creatinine Est Cr Clr Drug Dosing eGFR BUN/Creatinine Ratio Glucose POC Glucose 69 L* Osmolality Calcium Magnesium Total Bilirubin AST ALT Alkaline Phosphatase Troponin I High Sens Total Protein Albumin Globulin Albumin/Globulin Ratio Lipase TSH Urine Color Urine Appearance Urine pH Ur Specific [place] Urine Protein Urine Glucose (UA) Urine Ketones Urine Blood Urine Nitrite Urine Bilirubin Urine Urobilinogen Ur Leukocyte Esterase Urine Osmolality Ur Random Sodium Ethyl Alcohol mg/dL Blood Type Antibody Screen Coding Level of Care Code 92163 IN/OBS CONSULT LVL 4,60M Diagnoses Dysphagia R13.10 Abdominal pain R10.84 Abdominal location: generalized (2) Abdominal pain Abdominal location: generalized Qualified Code(s): R10.84 - Generalized abdominal pain
--- NOTE | 2024-11-11 12:10 | Hospitalist Progress Note ---
Date of Service November 11, 2024 Assessment & Plan (1) Alcohol withdrawal: (2) Alcoholic gastritis: (3) Alcohol abuse: (4) Chronic pancreatitis: (5) DM type 2 (diabetes mellitus, type 2): (6) Mood disorder: (7) History of pulmonary embolism: Plan Patient 49-year-old gentleman with known alcohol abuse and presents with abdominal pain, most likely caused by alcoholic gastritis and flare of his chronic pancreatitis induced by alcohol. Now with alcohol withdrawal. Continue gabapentin taper Lorazepam as needed for withdrawal symptoms Continue PPI infusion GI consultation recommendations reviewed Advance diet Monitor electrolytes Hyponatremia is resolved due to large-volume beer ingestion, poor solute intake.. Admission and Anticipated Discharge Date Admission Date: November 11, 2024 Subjective Patient definitely experiencing some withdrawal symptoms. Epigastric pain. Physical Exam Physical Exam: Constitutional: Alert moderately ill in appearance HEENT: Mucous membranes moist. Lungs: Clear to auscultation, decreased, no wheezes rales or rhonchi CV: S1-S2, regular Abdomen: Soft, tender epigastric area, and minimal guarding, no rebound, no distention Extremities: No significant edema Neuro: No focal deficits Psych: Cooperative, anxious Results & Data Results & Data Vital Signs (Past 12 Hours) Vital Signs Temp Pulse Pulse Pulse Resp BP BP 11/11/24 11:19 36.3 C L 80 20 109/66 11/11/24 09:06 83 11/11/24 07:47 36.5 C 72 16 99/56 L 11/11/24 04:54 36.3 C L 73 18 101/65 11/11/24 04:07 73 18 115/76 11/11/24 03:00 103 H 20 111/77 11/11/24 02:04 92 H 11/11/24 01:00 98 H 13 115/76 Pulse Ox O2 Del Method 11/11/24 11:19 98 Room Air 11/11/24 09:06 11/11/24 07:47 98 Room Air 11/11/24 04:54 98 Room Air 11/11/24 04:07 98 Room Air 11/11/24 03:00 99 Room Air 11/11/24 02:04 11/11/24 01:00 98 Room Air Diagnostic Findings Reviewed imaging, laboratory and diagnostic studies. Pertinent findings as below. Hemoglobin 15.2 WBCs 3.7 Platelets 121 Potassium 3.7 Sodium 138 (2) Alcoholic gastritis Chronicity: chronic Gastritis bleeding: without bleeding Qualified Code(s): K29.20 - Alcoholic gastritis without bleeding (4) Chronic pancreatitis Pancreatitis type: alcohol induced Qualified Code(s): K86.0 - Alcohol-induced chronic pancreatitis (5) DM type 2 (diabetes mellitus, type 2) Diabetes mellitus complication status: with other specified complication Diabetes mellitus continuous churn buttermaker insulin use: with fci use Qualified Code(s): E11.69 - Type 2 diabetes mellitus with other specified complication; 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
[2024-11-11] MEDS: LORazepam 2 MG/1 ML VIAL IV PRN ×2 (13:04→21:34)
[2024-11-11] MEDS: CARBOHYDRATES FOR HYPOGLYCEMIA PO PRN (20:22)
--- NOTE | 2024-11-12 01:53 | Communication Note ---
Date of Service: November 12, 2024 Patient AWSS 14. AP Worsening alcohol withdrawal PCU transfer Librium in place of gabapentin
[2024-11-12] MEDS: LORazepam 2 MG/1 ML VIAL IV PRN (01:57)
[2024-11-12] MEDS: chlordiazePOXIDE HCl 25 MG CAP PO SCH (02:53)
[2024-11-12] MEDS ORDERED: chlordiazePOXIDE ALCOHOL WITHDRAWL 25MG PO ONE (03:00)
[2024-11-12 06:18] LABS: Hematocrit (blood only) 43.4 % (42.0-52.0); Hemoglobin 15.2 g/dl (14.0-18.0); Mean Corpuscular Hemoglobin 34.2 pg (25.0-34.0); Mean Corpuscular Volume 97.5 fL (80.0-100.0); Mean Platelet Volume 9.5 fL (9.4-12.4); Platelet Count 105 K/uL (130-400); RDW Coefficient of Variation 11.1 % (11.5-14.5); RDW Standard Deviation 40.4 fL (36.4-46.3); Red Blood Count 4.45 M/uL (4.70-6.10); White Blood Count 5.17 K/ul (4.8-10.8)
[2024-11-12 07:18] LABS: BUN Creatinine Ratio 9.6 (10-20); Calcium 9.6 mg/dl (8.6-10.3); Magnesium 1.9 mg/dl (1.7-2.4); Potassium 3.9 mmol/L (3.5-5.1)
--- NOTE | 2024-11-12 09:59 | Gastroenterology Progress Note ---
Date of Service November 12, 2024 Assessment & Plan (1) Dysphagia: (2) Abdominal pain: Plan Patient having some confusion. Will continue to monitor. Will plan for EGD to evaluate dysphagia once over acute withdrawal symptoms. Admission and Anticipated Discharge Date Admission Date: November 11, 2024 Supervising Physician Co-Signing Physician Notes I saw and examined this patient with our nurse practitioner and agree with her assessment and plan. Still going through throes of alcohol withdrawal with hallucinations. Hemodynamically stable. Continue present management keep n.p.o. ultimate endoscopy once withdrawal symptoms resolved. Subjective Patient has some confusion today. He cannot tell me where he is today. still some abdominal pain. Still tremulous from withdrawal. He still feels like he had dysphagia symptoms yesterday with meals. Review of Systems Review of Systems: All systems reviewed & are unremarkable except as noted in HPI & below Physical Exam Constitutional: WD/WN, vitals as above Respiratory: normal respiratory effort, lungs clear to auscultation Cardiovascular: Rate/Rhythm: regular rate and regular rhythm Gastrointestinal (Abdomen): epigastric tenderness, no guarding, soft, normal bowel sounds. Psychiatric: Orientation: alert Results & Data Results & Data Vital Signs (Past 12 Hours) Vital Signs Temp Pulse Pulse Resp BP Pulse Ox O2 Del Method 11/12/24 08:08 98.1 F 86 18 126/80 96 Room Air 11/12/24 02:33 99 H 11/12/24 02:22 98.2 F 107 H 18 122/89 97 Room Air 11/12/24 01:48 97.9 F 102 H 20 132/80 94 Room Air 11/12/24 00:42 97.9 F 101 H 18 130/78 95 Room Air 11/11/24 22:45 98.2 F 109 H 16 117/71 95 Room Air Coding Level of Care Code 81474 SUB INP/OBS CARE 08/31MIN Diagnoses Dysphagia R13.10 Abdominal pain R10.9
--- NOTE | 2024-11-12 10:29 | Hospitalist Progress Note ---
Date of Service November 12, 2024 Assessment & Plan (1) Alcohol withdrawal: (2) Alcoholic gastritis: (3) Alcohol abuse: (4) Chronic pancreatitis: (5) Dysphagia: (6) DM type 2 (diabetes mellitus, type 2): (7) Mood disorder: (8) History of pulmonary embolism: Plan Patient still critically ill with significant alcohol withdrawal symptomatology requiring as needed benzodiazepines in addition to scheduled medication. Requires hospital level care and monitoring Continue with scheduled and as needed medications for withdrawal Supplement potassium and magnesium today Can transition to oral PPI, no evidence of active bleeding, hemoglobin stable Reviewed GI recommendations for today. Patient has complaints of chronic dysphagia. No plan for endoscopy until he is through his significant withdrawal symptoms. Advance diet today Continue to monitor glucose cover with insulin Monitor LFTs in a.m. Start naltrexone in a.m. to address his chronic alcohol addiction Admission and Anticipated Discharge Date Admission Date: November 11, 2024 Subjective Patient moved to PCU overnight due to increasing CIWA score. Resting comfortably this morning. Physical Exam Physical Exam: Constitutional: Asleep, able to awaken but drowsy HEENT: Mucous membranes moist. Lungs: Clear to auscultation, decreased, no wheezes rales or rhonchi CV: S1-S2, regular Abdomen: Soft, mild epigastric tenderness, no guarding or rigidity Extremities: No significant edema Neuro: No focal deficits, fine tremor Psych: Cooperative, normal mood Results & Data Results & Data Vital Signs (Past 12 Hours) Vital Signs Temp Pulse Pulse Resp BP Pulse Ox O2 Del Method 11/12/24 08:08 36.7 C 86 18 126/80 96 Room Air 11/12/24 02:33 99 H 11/12/24 02:22 36.8 C 107 H 18 122/89 97 Room Air 11/12/24 01:48 36.6 C 102 H 20 132/80 94 Room Air 11/12/24 00:42 36.6 C 101 H 18 130/78 95 Room Air 11/11/24 22:45 36.8 C 109 H 16 117/71 95 Room Air Diagnostic Findings Reviewed imaging, laboratory and diagnostic studies. Pertinent findings as below. 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
[2024-11-12] MEDS: INSULIN ASPART PER UNIT CHARGE SC SCH (12:29)
[2024-11-12] MEDS: MAGNESIUM OXIDE 400 MG TAB PO SCH (13:15)
[2024-11-12] MEDS: POTASSIUM CHLORIDE CRTAB 20 MEQ TABCR PO STA (13:39)
[2024-11-13] MEDS: DEXTROSE 50% 50 ML SYRINGE IV PRN (00:06)
[2024-11-13] MEDS ORDERED: GABAPENTIN 600 MG TAB PO SCH (02:45)
[2024-11-13] MEDS: chlordiazePOXIDE HCl 25 MG CAP PO SCH (05:05)
[2024-11-13 06:53] LABS: Albumin Level 3.5 gm/dl (3.4-5.0); BUN Creatinine Ratio 10.3 (10-20); Bilirubin Direct 0.2 mg/dl (0-0.2); Calcium 9.9 mg/dl (8.6-10.3); Creatinine Clr Calc Pharmacy 138.2 ml/min; Potassium 4.2 mmol/L (3.5-5.1); Total Protein 6.5 gm/dl (6.0-8.3)
[2024-11-13] MEDS ORDERED: oxyCODONE HCL IR 5 MG TAB (IMMEDIATE RELEASE) PO PRN (07:18)
[2024-11-13] MEDS ORDERED: PHENobarbital PO Alcohol Withdrawal PO STA (07:29)
[2024-11-13] MEDS ORDERED: PHENobarbital sodium 130 MG/ML VIAL IM STA (07:49)
[2024-11-13] MEDS ORDERED: Nursing to Pharmacy Communication SCH ×2 (08:30→12:00)
[2024-11-13] MEDS ORDERED: PHENobarbital sodium 65 MG/ML VIAL IV PRN (09:29)
--- NOTE | 2024-11-13 10:18 | Gastroenterology Progress Note ---
Date of Service November 13, 2024 Assessment & Plan (1) Dysphagia: Plan - Continue with Protonix 40mg bid. - still appears to be with withdrawal symptoms, but seems to be improving. - will proceed with EGD when over withdrawal. Admission and Anticipated Discharge Date Admission Date: November 11, 2024 Supervising Physician Co-Signing Physician Notes I saw and examined this patient with our nurse practitioner and agree with her assessment and plan. Clinically improving from alcohol withdrawal and DTs. Will consider endoscopy within the next 24 to 48 hours if continues to improve. Subjective Patient still having some tremors. He has had some nausea and reports some green/yellow emesis last evening. some epigastric discomfort. Review of Systems Review of Systems: All systems reviewed & are unremarkable except as noted in HPI & below Physical Exam Constitutional: WD/WN, vitals as above Respiratory: normal respiratory effort, lungs clear to auscultation Cardiovascular: Rate/Rhythm: regular rate and regular rhythm Gastrointestinal (Abdomen): epigastric tenderness to palpation, no guarding, soft. normal bowel sounds. Psychiatric: Orientation: alert and oriented x 3 Results & Data Results & Data Vital Signs (Past 12 Hours) Vital Signs Temp Pulse Pulse Resp BP BP Pulse Ox 11/13/24 08:00 11/13/24 07:40 97.5 F L 90 17 126/89 100 11/13/24 02:51 98.2 F 100 H 18 91/60 L 98 11/13/24 00:01 107 H 11/12/24 22:33 98.4 F 112 H 20 128/104 H 99 Pulse Ox O2 Del Method O2 Del Method 11/13/24 08:00 99 Room Air 11/13/24 07:40 Room Air 11/13/24 02:51 Room Air 11/13/24 00:01 11/12/24 22:33 Room Air Laboratory Results Laboratory Results - last 48 hr 11/11/24 11/11/24 11/11/24 17:14 20:14 20:17 WBC RBC Hgb Hct MCV MCH MCHC RDW Std Deviation RDW Coeff of Gucci Plt Count MPV Sodium Potassium Chloride Carbon Dioxide Anion Gap BUN Creatinine Est Cr Clr Drug Dosing eGFR BUN/Creatinine Ratio Glucose POC Glucose 168 H 66 L* 58 L* Calcium Magnesium Total Bilirubin Direct Bilirubin AST ALT Alkaline Phosphatase Total Protein Albumin 11/11/24 11/11/24 11/12/24 20:43 23:20 05:37 WBC 5.17 RBC 4.45 L Hgb 15.2 Hct 43.4 MCV 97.5 MCH 34.2 H MCHC 35.0 RDW Std Deviation 40.4 RDW Coeff of Gucci 11.1 L Plt Count 105 L MPV 9.5 Sodium 137 Potassium 3.9 Chloride 99 Carbon Dioxide 30 Anion Gap 8 BUN 7 Creatinine 0.73 Est Cr Clr Drug Dosing 130.0 eGFR 110.15 BUN/Creatinine Ratio 9.6 L Glucose 131 H POC Glucose 95 228 H Calcium 9.6 Magnesium 1.9 Total Bilirubin Direct Bilirubin AST ALT Alkaline Phosphatase Total Protein Albumin 11/12/24 11/12/24 11/12/24 05:57 11:16 16:30 WBC RBC Hgb Hct MCV MCH MCHC RDW Std Deviation RDW Coeff of Gucci Plt Count MPV Sodium Potassium Chloride Carbon Dioxide Anion Gap BUN Creatinine Est Cr Clr Drug Dosing eGFR BUN/Creatinine Ratio Glucose POC Glucose 144 H 137 H 496 H* Calcium Magnesium Total Bilirubin Direct Bilirubin AST ALT Alkaline Phosphatase Total Protein Albumin 11/12/24 11/12/24 11/12/24 16:39 20:07 23:44 WBC RBC Hgb Hct MCV MCH MCHC RDW Std Deviation RDW Coeff of Gucci Plt Count MPV Sodium Potassium Chloride Carbon Dioxide Anion Gap BUN Creatinine Est Cr Clr Drug Dosing eGFR BUN/Creatinine Ratio Glucose POC Glucose 202 H 449 H* 51 L* Calcium Magnesium Total Bilirubin Direct Bilirubin AST ALT Alkaline Phosphatase Total Protein Albumin 11/12/24 11/13/24 11/13/24 23:48 00:03 00:22 WBC RBC Hgb Hct MCV MCH MCHC RDW Std Deviation RDW Coeff of Gucci Plt Count MPV Sodium Potassium Chloride Carbon Dioxide Anion Gap BUN Creatinine Est Cr Clr Drug Dosing eGFR BUN/Creatinine Ratio Glucose POC Glucose 52 L* 51 L* 170 H Calcium Magnesium Total Bilirubin Direct Bilirubin AST ALT Alkaline Phosphatase Total Protein Albumin 11/13/24 11/13/24 11/13/24 05:29 06:08 11:13 WBC RBC Hgb Hct MCV MCH MCHC RDW Std Deviation RDW Coeff of Gucci Plt Count MPV Sodium 139 Potassium 4.2 Chloride 99 Carbon Dioxide 35 H Anion Gap 5 BUN 7 Creatinine 0.68 Est Cr Clr Drug Dosing 138.2 eGFR 112.54 BUN/Creatinine Ratio 10.3 Glucose 92 POC Glucose 94 168 H Calcium 9.9 Magnesium Total Bilirubin 1.0 Direct Bilirubin 0.2 AST 60 H ALT 55 H Alkaline Phosphatase 178 H Total Protein 6.5 Albumin 3.5 Coding Level of Care Code 17922 SUB INP/OBS CARE MIN Diagnoses Dysphagia R13.10
[2024-11-13] MEDS: HYDROmorphone HCL 2 MG TAB PO PRN ×2 (11:19→19:34)
[2024-11-13] MEDS ORDERED: INSULIN ASPART PER UNIT CHARGE SC SCH (12:00)
[2024-11-13] MEDS: INSULIN ASPART PER UNIT CHARGE SC SCH (12:16)
[2024-11-13] MEDS: PHENobarbital sodium 130 MG/ML VIAL IM STA (12:17)
[2024-11-13] MEDS: Nursing to Pharmacy Communication SCH (12:50)
--- NOTE | 2024-11-13 14:59 | Hospitalist Progress Note ---
Date of Service November 13, 2024 Assessment & Plan (1) Alcohol withdrawal: Plan: -as evidenced by high alcohol withdrawal score -patient agitated, with tremors Plan: -start phenobarbital load and taper -prn ativan -case management, appreciate assistance with drug rehab -can consider acomprosate at discharge (2) Alcoholic gastritis: Plan: -appreciate GI input -continue PPI bid (3) Alcohol abuse: Plan: -see above (4) Chronic pancreatitis: Plan: -patient has epigastric pain to palpation radiating to back -patient sitting comfortably in bed, asking for IV pain medication Plan: -stop IV dilaudid, no indication when swallowing PO -start PO dilaudid at effective dose from last hospitalization -could consider celiac plexus block in future (5) Chronic pain syndrome: Plan: -concern for concominant opioid cravings with alcohol cravings Plan: -f/u with pain management outpatient (6) Dysphagia: Plan: -EGD when withdrawal done (7) DM type 2 (diabetes mellitus, type 2): Plan: -per protocol (8) Mood disorder: Plan: -continue duloxetine -[facility] Plan I spent a total of 50 minutes in direct patient care, including [id number] time with the patient and/or family, reviewing medical records, ordering and reviewing diagnostic tests, and coordinating care with other healthcare providers. This time includes: history taking, physical examination, medical decision making, counseling, ECG interpretation, imaging interpretation, lab interpretation, orders, and education, excluding time spent in the performance of separately billed services. Admission and Anticipated Discharge Date Admission Date: November 11, 2024 Subjective Patient seen and examined at bedside. Patient states he is having pain in his abdomen and back and is requesting IV Dilaudid. Patient familiar to this provider from prior hospitalization. Patient states he is only minimally interested in pursuing more aggressive alcohol rehab. He states [facility] has [facility] that [facility]. Feels he is still withdrawaing as well Review of Systems Review of Systems: CONSTITUTIONAL: Patient denies fevers, chills, sweats and weight changes. EYES: Patient denies any visual symptoms. EARS, NOSE, AND THROAT: No difficulties with hearing. No symptoms of rhinitis or sore throat. CARDIOVASCULAR: Patient denies chest pains, palpitations, orthopnea and paroxysmal nocturnal dyspnea. RESPIRATORY: No dyspnea on exertion, no wheezing or cough. GI: pain : No urinary hesitancy or dribbling. No nocturia or urinary frequency. No abnormal urethral discharge. MUSCULOSKELETAL: No myalgias or arthralgias. NEUROLOGIC: tremors PSYCHIATRIC: Patient denies problems with mood disturbance. No problems with anxiety. ENDOCRINE: No excessive urination or excessive thirst. DERMATOLOGIC: Patient denies any rashes or skin changes. Physical Exam Physical Exam: Gen: A&O 3 NAD HEENT: NCAT, EOMI, not icteric. External ears normal. No rhinorrhea. Moist mucous membranes. Neck: Supple, full range of motion, no observable masses, No meningeal sign. Lungs: No Respiratory distress. CV: RRR, no edema. Abdomen: slight tenderness to palpation in epigastric region MSK: No joint swelling, no redness. Skin: No rashes, petechiae, lesions. Normal color per patient. Neuro: Normal Gait, Grossly intact. Tremors noted Psych: Appropriate for situation. Results & Data Results & Data Vital Signs (Past 12 Hours) Vital Signs Temp Pulse Pulse Resp BP BP Pulse Ox 11/13/24 14:39 36.6 C 100 H 17 116/75 97 11/13/24 14:30 98 H 11/13/24 12:17 98 H 16 114/74 11/13/24 12:15 36.6 C 98 H 16 114/74 98 11/13/24 08:50 36.6 C 90 14 116/72 98 11/13/24 08:00 11/13/24 07:40 36.4 C L 90 17 126/89 100 11/13/24 07:00 81 Pulse Ox O2 Del Method O2 Del Method 11/13/24 14:39 Room Air 11/13/24 14:30 11/13/24 12:17 11/13/24 12:15 Room Air 11/13/24 08:50 Room Air 11/13/24 08:00 99 Room Air 11/13/24 07:40 Room Air 11/13/24 07:00 Laboratory Results -personally reviewed, elevated transaminases and alk phos consistent with known cirrhosis/hepatic steatosis Medications Administered Dextrose (Dextrose 50% 50 Ml Syringe) 25 - 50 ml IV UD PRN; Protocol PRN Reason: Hypoglycemia Protocol Stop: 12/11/24 04:38 Last Admin: 11/13/24 00:06 Dose: 50 ml Documented By: ANDREW Folic Acid (Folic Acid 1 Mg Tab) 1 mg PO QAM [facility] Stop: 12/11/24 08:59 Last Admin: 11/13/24 08:36 Dose: 1 mg Documented By: Admin: 11/12/24 09:23 Dose: 1 mg Documented By: Admin: 11/11/24 08:15 Dose: 1 mg Documented By: CUCA Hydromorphone HCl (Hydromorphone Hcl 2 Mg Tab) 2 mg PO Q4 PRN PRN Reason: Breakthrough Pain Stop: 11/27/24 07:29 Last Admin: 11/13/24 11:19 Dose: 2 mg Documented By: JUAN Pantoprazole Sodium (Protonix) 40 mg in 10 mls @ 5 mls/min IV BID [facility] Stop: 12/11/24 08:59 Last Admin: 11/13/24 08:37 Dose: 5 mls/min Documented By: Admin: 11/12/24 21:50 Dose: 5 mls/min Documented By: Admin: 11/12/24 10:16 Dose: 5 mls/min Documented By: Admin: 11/11/24 20:55 Dose: 5 mls/min Documented By: Les Admin: 11/11/24 08:15 Dose: 5 mls/min Documented By: CUCA Insulin Aspart (Insulin Aspart Per Unit Charge) 0 units SC ACHS [facility] Stop: 12/13/24 11:59 Last Admin: 11/13/24 12:16 Dose: 3 units Documented By: AM Co-signed By: KOBI Lorazepam (Lorazepam 2 Mg/1 Ml Vial) 1 mg IV UD PRN; Protocol PRN Reason: EtOH Withdrawal AWSS Score 6,7 Stop: 12/11/24 02:41 Last Admin: 11/13/24 08:30 Dose: 1 mg Documented By: Admin: 11/12/24 22:17 Dose: 1 mg Documented By: Admin: 11/11/24 13:04 Dose: 1 mg Documented By: CUCA Lorazepam (Lorazepam 2 Mg/1 Ml Vial) 2 mg IV UD PRN; Protocol PRN Reason: EtOH Withdrawal AWSS Score 8,9 Stop: 12/11/24 02:41 Last Admin: 11/12/24 01:02 Dose: 2 mg Documented By: [id number] Admin: 11/11/24 23:18 Dose: 2 mg Documented By: [id number] Admin: 11/11/24 21:34 Dose: 2 mg Documented By: [id number] Miscellaneous (Carbohydrates For Hypoglycemia ) 15 - 30 gm PO UD PRN PRN Reason: Hypoglycemia Protocol Stop: 12/11/24 04:38 Last Admin: 11/12/24 23:47 Dose: 30 gm Documented By: Admin: 11/11/24 20:22 Dose: 15 gm Documented By: Multivitamins ([facility]ivitamin Tab) [facility] Stop: 12/11/24 08:59 Last Admin: 11/13/24 08:36 Dose: 1 tab Documented By: Admin: 11/12/24 09:23 Dose: 1 tab Documented By: Admin: 11/11/24 08:15 Dose: 1 tab Documented By: CUCA Paroxetine HCl (Paroxetine Hcl 10 Mg Tab) [facility] [place] Stop: 12/11/24 08:59 Last Admin: 11/13/24 08:36 Dose: 30 mg Documented By: Admin: 11/12/24 10:16 Dose: 30 mg Documented By: Admin: 11/11/24 08:15 Dose: 30 mg Documented By: CUCA Thiamine HCl (Thiamine Hcl 100 Mg Tab) [facility] [place] Stop: 12/11/24 08:59 Last Admin: 11/13/24 08:36 Dose: 100 mg Documented By: Admin: 11/12/24 09:23 Dose: 100 mg Documented By: Admin: 11/11/24 08:15 Dose: 100 mg Documented By: CUCA (2) Alcoholic gastritis Chronicity: chronic Gastritis bleeding: without bleeding Qualified Code(s): K29.20 - Alcoholic gastritis without bleeding (4) Chronic pancreatitis Pancreatitis type: alcohol induced Qualified Code(s): K86.0 - Alcohol-induced chronic pancreatitis (7) DM type 2 (diabetes mellitus, type 2) Diabetes mellitus complication status: with other specified complication 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
[2024-11-13] MEDS: PHENobarbital sodium 130 MG/ML VIAL IM SCH ×2 (15:21→18:18)
[2024-11-14] MEDS: PHENobarbitaL 30 MG TAB PO SCH (06:28)
[2024-11-14 06:44] LABS: Hematocrit (blood only) 38.2 % (42.0-52.0); Hemoglobin 13.6 g/dl (14.0-18.0); Mean Corpuscular Hemoglobin 33.9 pg (25.0-34.0); Mean Corpuscular Hgb Conc 35.6 g/dL (32.0-36.0); Mean Corpuscular Volume 95.3 fL (80.0-100.0); Mean Platelet Volume 9.6 fL (9.4-12.4); Platelet Count 113 K/uL (130-400); RDW Coefficient of Variation 10.8 % (11.5-14.5); RDW Standard Deviation 38.1 fL (36.4-46.3); Red Blood Count 4.01 M/uL (4.70-6.10); White Blood Count 7.75 K/ul (4.8-10.8)
[2024-11-14 07:15] LABS: INR 1.1 (0.9-1.1); Prothrombin Time 11.9 Seconds (9.0-12.0)
[2024-11-14 07:18] LABS: Albumin Globulin Ratio 1.1 (0.9-2); Albumin Level 3.2 gm/dl (3.4-5.0); BUN Creatinine Ratio 10.4 (10-20); Bilirubin,Total 1.1 mg/dl (0.2-1.0); Calcium 9.1 mg/dl (8.6-10.3); Creatinine Clr Calc Pharmacy 140.8 ml/min; Globulin 2.9 gm/dl (2.5-4.0); Potassium 3.4 mmol/L (3.5-5.1); Total Protein 6.1 gm/dl (6.0-8.3)
[2024-11-14 07:25] VITALS: BP 99/72; PULSE 102; RESP 17; TEMP 98.2; O2SAT 99
[2024-11-14] MEDS ORDERED: POTASSIUM CHLORIDE CRTAB 20 MEQ TABCR PO STA (07:50)
[2024-11-14] MEDS ORDERED: LACTATED RINGER'S 1,000 ML IV SCH (08:00)
--- NOTE | 2024-11-14 08:56 | Discharge Summary ---
Discharge Summary Date of Service November 14, 2024 Principal Dx & Hospital Course #1 = Principal Diagnosis (1) Alcohol withdrawal: -as evidenced by high alcohol withdrawal score -patient agitated, with tremors Plan: -start phenobarbital load and taper -prn ativan -case management, appreciate assistance with drug rehab -can consider acomprosate at discharge -patient founding utilizing chewing tobacco and swallowing it, discussed need for compliance with medical therapies and not using tobacco use, states in response "I dont need to do sh", security called, patient refused to sign AMA paperwork, patient states he is going to drink again as soon as he leaves and states he will not go to alcohol rehab. (2) Alcoholic gastritis: -appreciate GI input -continue PPI bid (3) Alcohol abuse: -see above (4) Chronic pancreatitis: -patient has epigastric pain to palpation radiating to back -patient sitting comfortably in bed, asking for IV pain medication Plan: -stop IV dilaudid, no indication when swallowing PO -start PO dilaudid at effective dose from last hospitalization -could consider celiac plexus block in future (5) Chronic pain syndrome: -concern for concominant opioid cravings with alcohol cravings Plan: -f/u with pain management outpatient (6) Dysphagia: -EGD when withdrawal done (7) DM type 2 (diabetes mellitus, type 2): -per protocol (8) Mood disorder: -continue duloxetine -f/u with [facility] outpatient Plan I spent a total of 50 minutes in direct patient care, including [id number] time with the patient and/or family, reviewing medical records, ordering and reviewing diagnostic tests, and coordinating care with other healthcare providers. This time includes: history taking, physical examination, medical decision making, counseling, ECG interpretation, imaging interpretation, lab interpretation, orders, and education, excluding time spent in the performance of separately billed services. Notes For Next Care Provider 49 yo male with pmhx of alcohol abuse, chronic pancreatitis, GERD/Renae's esophagus, ADD/mood disorder as per records, DM2 insulin requiring, hx PE/recurrent DVT off anticoagulation, history of chronic pain, hx narcotic abuse as per records/terminated medication agreement. Presented for alcohol withdrawal. On medicine, gvien phenobarbital, ativan, gabapentin. Patient aggressive with staff requesting pain medication, refusing to be compliant with medical therapies, including eating/chewing dip in the room and eating crackers/food over recommended diet. GI consulted, recommended EGD, however patient insisting on using chewing tobacco and eating. Of note, chewing tobacco littered on floor and throughout bed. 11/14/2024 patient states "I am not going to do any of this sh", states he does not want further treatments, refused to sign AMA paperwork, has capacity by stating he knows that he could hurt himself and when he leaves. States he is going to go home and drink alcohol, states he will not be doing alcohol rehab. Of note, patient being verbally aggressive and physically suggestive with staff and this provider, high concern for harm to staff and others if readmitted. Medication Changes From Visit -stop pain medication Admission HPI Per Admitting Provider History is obtained from the patient and records. Medical history is significant for alcohol abuse, chronic pancreatitis, GERD/Renae's esophagus, ADD/mood disorder as per records, DM2 insulin requiring, hx PE/recurrent DVT off anticoagulation, history of chronic pain, hx narcotic abuse as per records/terminated medication agreement. 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 Patient also had ongoing dysphagia complaints mostly with solids over the last few months. GI service recommended outpatient follow-up/EGD with Natividad DUDLEY. Progressive dysphagia over the last few weeks. Intermittent episodes of dizziness described as lightheadedness with headache symptoms. Feeling of imbalance as per patient. 2 days ago, patient noted achy abdominal discomfort going to the chest with some SOB. Episode similar to pancreatitis attack. Mushy stools nonbloody. At the ER, patient noted to have dark emesis. MEDICAL HISTORY: As above. EGD 2019 showed mild gastritis, mild duodenitis SURGERIES: Appendectomy, cholecystectomy, vascular device placement, back surgery FAMILY HISTORY: mood disorder. Alcoholism, heart disease. 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 External ears normal. No rhinorrhea. Moist mucous membranes. Neck: Supple, full range of motion, no observable masses, No meningeal sign. Lungs: No Respiratory distress. CV: RRR, no edema. Abdomen: slight tenderness to palpation in epigastric region MSK: No joint swelling, no redness. Skin: No rashes, petechiae, lesions. Normal color per patient. Neuro: Normal Gait, Grossly intact. Tremors noted, has capacity Psych: aggressive with this provider and staff Updated Medication List Medication Instructions Recorded Confirmed Type pantoprazole 40 mg tablet,delayed 40 mg PO DAILYBB 01/03/23 11/11/24 History release ondansetron 4 mg disintegrating 4 mg PO BID PRN nausea and 08/17/23 11/11/24 Rx tablet vomiting #20 tabs albuterol sulfate 90 mcg/actuation 2 puff inhalation Q6 PRN Shortness 02/01/24 11/11/24 History aerosol inhaler Of Breath cyclobenzaprine 10 mg tablet 10 mg PO BID PRN Muscle Spasm 02/01/24 11/11/24 History duloxetine 20 mg capsule,delayed 20 mg PO QAM PRN Pain 02/01/24 11/11/24 History release empagliflozin 10 mg tablet 10 mg PO QAM 02/01/24 11/11/24 History (Jardiance) insulin glargine 100 unit/mL 10 unit subcut HS 02/01/24 11/11/24 History subcutaneous solution (Lantus U-100 Insulin) paroxetine HCl 30 mg tablet 30 mg PO QAM 06/04/24 11/11/24 History hydromorphone 2 mg tablet 2 mg PO Q6 PRN pain #14 tabs 10/07/24 11/11/24 Rx (Dilaudid) Hospital Stay Data Consultations 11/11/24 01:43 ED Decision to Admit Stat 11/11/24 04:39 Consult Gastroenterology Routine Diagnostic Imagining Performed 11/10/24 22:06 CT abd pelvis IV con only Stat CT angio chest PE protocol Stat 11/11/24 02:37 CT head/brain wo con Stat Pending Results Patient Have Any Pending Studies at Discharge: No Discharge Instructions Given to Patient (Per Discharging Provider) 1. Please consider cessation from alcohol. Total Time Total Time Spent Total Time Spent (In Minutes): I spent a total of 35 minutes in direct patient care, including [id number] time with the patient and/or family, reviewing medical records, ordering and reviewing diagnostic tests, and coordinating care with other healthcare providers. This time includes: history taking, physical examination, medical decision making, counseling, ECG interpretation, imaging interpretation, lab interpretation, orders, and education, excluding time spent in the performance of separately billed services.
[2024-11-14] MEDS ORDERED: GABAPENTIN 600 MG TAB PO SCH (14:45)
[2024-11-15] MEDS ORDERED: PHENobarbitaL 30 MG TAB PO SCH (05:00)
[2024-11-15] MEDS ORDERED: chlordiazePOXIDE HCl 5 MG CAP PO SCH (10:00)
[2024-11-16] MEDS ORDERED: PHENobarbitaL 30 MG TAB PO SCH (17:00)
== END 2024-11-14 09:00 | disposition left against medical advice (07) | DRG 894 ==
LOC: ED 21:15 → 2N 11-11 02:40 → SUATTDRO 11-11 02:40 → 2N 11-11 04:07 → 2E 11-12 02:21